=== PATIENT | male | born 1965 | race Caucasian/White ===

== ENCOUNTER 2020-01-11 20:02 | Inpatient (IN) | payer MEDICARE, MEDICAID, SELFPAY ==
--- NOTE | ~2020-01-11 | XR_ITS ---
EXAMINATION: XR chest 2V EXAM DATE: 01/11/2020 20:39 INDICATION: Shortness of breath, leg swelling, history of diabetes. TECHNIQUE: Frontal and lateral projections of the chest obtained and reviewed. Comparison is made to prior examination from 08/21/2017. FINDINGS: Sternotomy wires are present without findings to suggest sternal dehiscence. The lungs are clear. Small bilateral pleural effusions. Cardiac silhouette is prominent but magnified on this AP t echnique. There is no pneumothorax suspected. The bones and soft tissues are unremarkable. On prior study there are also small bilateral pleural effusions. The previously seen patchy bilateral perihilar airspace disease has resolved. IMPRESSION: Small bilateral pleural effusions. Reviewed, dictated and finalized at location A.
--- NOTE | ~2020-01-11 | US_ITS ---
EXAMINATION: US venous doppler [facility] DATE: 01/12/2020 15:19 INDICATION: Bilateral lower limb swelling TECHNIQUE: Miranda scale images without and with compression and Doppler images of the bilateral lower e xtremity veins were obtained. COMPARISON: 03/12/2014 FINDINGS: The right common femoral vein, profunda femoral vein, femoral vein, popliteal vein, peroneal trunk, p osterior tibial veins, and greater saphenous vein are patent. The left common femoral vein, profunda femoral vein, femoral vein, popliteal vein, peroneal trunk, po sterior tibial veins, and greater saphenous vein are patent. IMPRESSION: 1. Patent bilateral lower extremity veins. No evidence of deep venous thrombosis. Reviewed, dictated and finalized at location A. IMPRESSION: 1. Patent bilateral lower extremity veins. No evidence of deep venous thrombosi s.
--- NOTE | ~2020-01-11 | US_ITS ---
EXAMINATION: US renal BI DATE: 01/14/2020 13:17 INDICATION: Acute kidney injury. TECHNIQUE: Multiple ultrasound grayscale images of the kidneys were obtained. COMPARISON: 08/22/2017 FINDINGS: The right kidney measures 11.6 x 5.7 x 5.3 cm. The left kidney measures 11.8 x 6.6 x 5.6 cm. The kidn eys demonstrate normal parenchymal echogenicity. There is no hydronephrosis. The bladder is not well distended. IMPRESSION: 1. Normal kidneys. No hydronephrosis. Reviewed, dictated and finalized at location A.
--- NOTE | ~2020-01-11 | NM_ITS ---
EXAMINATION: NM mike stress w perfusion DATE: 01/13/2020 11:45 INDICATION: Congestive heart failure. TECHNIQUE: Rest images were obtained following intravenous administration of 12.8 mCi Tc99m tetrofosm in (Myoview). The patient was infused intravenously with Lexiscan (regadenoson). Then, 33 mCi Tc99m t etrofosmin (Myoview) was administered intravenously, and stress images were obtained. Data was recons tructed into short axis and horizontal and vertical long axis SPECT images. Gated SPECT images were a lso obtained. COMPARISON: Chest CT 08/22/2017 FINDINGS: There is a moderate-sized, mild, partially reversible perfusion defect involving the inferi or wall, consistent with mixed ischemia and infarct. There is a large, severe, partially reversible p erfusion defect involving the anterolateral and inferolateral wall, consistent with mixed ischemia an d infarct. There are small, mild, partially reversible perfusion defects involving left ventricular a pex and mid anterior segment, consistent with mixed ischemia and infarct. There is global hypokinesis . Left ventricular ejection fraction measures 29%. IMPRESSION: 1. Mixed ischemia and infarct involving the inferior wall, anterolateral and inferolateral mazariegos, ape x, and mid anterior segment. 2. Global hypokinesis with left ventricular ejection fraction measuring 29%. Reviewed, dictated and finalized at location A. IMPRESSION: 1. Mixed ischemia and infarct involving the inferior wall, anterolateral and in ferolateral mazariegos, apex, and mid anterior segment. 2. Global hypokinesis with left ventricular ejection fraction measuring 29%.
[2020-01-11 20:05] VITALS: BP 172/97; PULSE 78; RESP 16; TEMP 36.2; O2SAT 100
--- NOTE | 2020-01-11 20:08 | ECG_ITS ---
Measurements Intervals [place] Rate: 76 P: 105 IL: 286 QRS: -3 QRSD: 125 T: 138 QT: 420 QTc: 473 Interpretive Statements SINUS RHYTHM WITH FIRST DEGREE AV BLOCK LEFT BUNDLE BRANCH BLOCK BASELINE ARTIFACT- I, II, AVR ABNORMAL ECG Electronically Signed On 01-12-2020 7:09:59 CDT by Nasim Gee D.O.
[2020-01-11 20:13] LABS: Glucose Point of Care 152 (65-105)
[2020-01-11 20:17] LABS: Basophils Absolute Auto 0.1 K/mm3 (0.0-0.1); Basophils Percent Auto 0.8 % (0.2-1.2); Eosinophils Absolute Auto 0.3 K/mm3 (0-0.3); Eosinophils Percent Auto 2.9 % (0-4.4); Hematocrit 35.8 % (42.0-52.0); Hemoglobin 10.8 g/dL (14.0-18.0); Immature Granulocyte Absolute 0.05 K/mm3 (0.00-0.031); Immature Granulocyte Percent A 0.5 % (0-0.5); Lymphocytes Absolute Auto 0.96 K/mm3 (0.9-3.2); Lymphocytes Percent Auto 8.6 % (18.3-44.2); Mean Corpuscular HGB Conc 30.2 g/dl (32-36); Mean Corpuscular Hemoglobin 26.3 pg (26-34); Mean Corpuscular Volume 87.3 fl (80-100); Monocytes Absolute Auto 0.8 K/mm3 (0.1-0.6); Monocytes Percent Auto 7.6 % (2.6-8.5); Neutrophils Absolute Auto 8.8 K/mm3 (1.3-6.7); Neutrophils Percent Auto 79.6 % (45.5-73.1); Platelet Count Result 349 k/mm3 (150-375); White Blood Count 11.1 K/mm3 (4.5-10.0)
[2020-01-11 20:30] LABS: Blood Urea Nitrogen 34 mg/dL (9-20); Calcium 8.4 mg/dL (8.4-10.2); Carbon Dioxide 21 mmol/L (22-30); Chloride 111 mmol/L (98-107); Estimated Glomerular Filt Rate 30; Glucose 178 mg/dL (75-110); Potassium 4.9 mmol/L (3.4-5.0); Sodium 139 mmol/L (137-145)
[2020-01-11 22:04] VITALS: BP 179/96; PULSE 72; RESP 20; TEMP 36.8
[2020-01-11 23:11] VITALS: BP 178/102; PULSE 88; RESP 18; O2SAT 98
--- NOTE | 2020-01-11 23:12 | PC.NURSE ---
assumed care of patient
[2020-01-12] VITALS (10 sets, daily range): BP systolic 129–180; BP diastolic 60–95; PULSE 63–79; RESP 16–23; TEMP 36.2–36.8; O2SAT 98–100; BMI 35.0
--- NOTE | 2020-01-12 | ECHO_ITS ---
Patient Info Name: Kobi Salter Age: 54 years : 1965 Gender: Male Ht: 72 in Wt: 259 lbs BSA: 2.48 m2 HR: 80 bpm Heart Rhythm: Sinus Rhythm Technical Quality: Good Exam Date: 01/12/2020 11:04 AM Exam Location: [facility] Patient Status: Inpatient Admit Date: 01/12/2020 Staff Ordering Physician: Nasim Gee DO Development Executive: Osiel Leslie RDCS Attending Provider: Colleen Thompson PA-C Referring Physician: Gerard MARIN; Exam Type: CA echo doppler color flow Study Info Indications I50.9 - Heart failure, unspecified Complete two-dimensional, color flow and Doppler transthoracic echocardiogram is performed. Strain analysis performed. History/Risk Factors CHF s/p 4vCABG, DM, HTN, GARCIA. Summary 1. Left ventricular chamber dimension is moderately enlarged. 2. Left ventricular systolic function is severely reduced, estimated at 25-30%. 3. There is mildly increased left ventricular wall thickness. 4. The left ventricular diastolic function is abnormal. 5. E/e' 12 is mildly elevated,. 6. Global longitudinal strain is abnormal at -7.4%. 7. Right ventricular systolic function is moderately reduced. TAPSE 1.0 cm suggests RV systolic dysfunction. 8. Right ventricular chamber dimension is mildly enlarged. 9. Left atrial chamber dimension is severely enlarged. 10. There is mild mitral valve regurgitation. 11. There is mild tricuspid valve regurgitation. 12. Mild pulmonary hypertension, estimated pulmonary arterial systolic pressure is 42 mmHg. Left Ventricle E/e' 12 is mildly elevated,. Global longitudinal strain is abnormal at -7.4%. Left ventricular chamber dimension is moderately enlarged. Left ventricular systolic function is severely reduced, estimated at 25-30%. There is mildly increased left ventricular wall thickness. The left ventricular diastolic function is abnormal. Right Ventricle Right ventricular systolic function is moderately reduced. TAPSE 1.0 cm suggests RV systolic dysfunction. Right ventricular chamber dimension is mildly enlarged. Left Atria Left atrial chamber dimension is severely enlarged. Right Atria Right atrial chamber dimension is normal. Aortic Valve The aortic valve is trileaflet. There is no aortic valve stenosis. There is no aortic valve regurgitation. Pulmonic Valve There is no pulmonic regurgitation. Mitral Valve There is no mitral valve stenosis. There is mild mitral valve regurgitation. Tricuspid Valve There is mild tricuspid valve regurgitation. Mild pulmonary hypertension, estimated pulmonary arterial systolic pressure is 42 mmHg. Pericardium/Pleural There is no pericardial effusion. Inferior Vena Cava Normal inferior vena cava with >50% collapse upon inspiration consistent with normal right atrial pressure, 5 mmHg. Aorta The aortic root size at the sinus of Valsalva is normal. Left Ventricular Outflow Tract Name Value Normal LVOT 2D LVOT Diameter 2.2 cm LVOT Doppler LVOT Peak Gradient 4 mmHg LVOT Mean Gradient 2 mmHg LVOT VTI
[2020-01-12] MEDS: FUROSEMIDE INJ 40 MG/4 ML VIAL IV PUSH ×2 (01:37→14:51)
[2020-01-12 02:18] LABS: NT Pro B Type Natriuretic Pept 25000 PG/ML (5-100); Troponin I 0.024 ng/mL (0.000-0.034)
--- NOTE | 2020-01-12 02:58 | ED.GENADULT ---
HPI - General Adult General Chief complaint: Extremity Problem,Nontraumatic Stated complaint: swelling in legs Time Seen by Provider: 01/12/20 01:00 Source: patient Mode of arrival: ambulatory Limitations: no limitations History of Present Illness HPI narrative: THis patient is a 54 yo male who presents with c/o bilateral leg swelling. 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 He has noticed that his legs have gradually become swollen over the past week. He does not take any diuretics. He also denies kidney disease. He denies chest pain but he reports fatigue. He is also concerned because he is getting sores of his feet, and his family is concerned because he has diabetes. He denies orthopnea. Onset (ago): week(s) Related Data Home Medications Medication Instructions Recorded Confirmed aspirin 81 mg tablet,delayed 81 mg PO DAILY 09/21/19 01/12/20 release atorvastatin 80 mg tablet 80 mg PO DAILY 09/21/19 01/12/20 carvedilol 3.125 mg tablet 3.125 mg PO BID 09/21/19 01/12/20 fenofibrate 160 mg tablet 54 mg PO DAILY 09/21/19 01/12/20 insulin glargine U-300 conc 300 5 unit SUB-Q DAILY 09/21/19 01/12/20 unit/mL (1.5 mL) subcutaneous pen insulin lispro 100 unit/mL 1 unit SUB-Q ONCE 09/21/19 01/12/20 subcutaneous pen lisinopril 10 mg tablet 10 mg PO DAILY 09/21/19 01/12/20 metformin 500 mg tablet 500 mg PO BID 09/21/19 01/12/20 omega 0-mft-wwl-fish oil 1,000 mg 1 cap PO DAILY 09/21/19 01/12/20 (120 mg-180 mg) capsule Cinnamon 2,000 mg BYMOUTH DAILY 01/12/20 01/12/20 Vitamin D3 25 mcg BYMOUTH DAILY 01/12/20 01/12/20 glimepiride 2 mg BYMOUTH BID 01/12/20 01/12/20 metoprolol succinate 25 mg BYMOUTH DAILY 01/12/20 01/12/20 rosuvastatin 40 mg BYMOUTH DAILY 01/12/20 01/12/20 Allergies Allergy/AdvReac Type Severity Reaction Status Date / Time Penicillins Allergy Unknown Unknown Verified 01/12/20 06:13 Review of Systems Review of Systems: All systems reviewed & are unremarkable except as noted in HPI and below Constitutional: Constitutional: Denies chills, Denies fever(s) and Denies weakness ENT: Denies dizziness Cardiovascular: Cardiovascular: Denies chest pain Respiratory: Respiratory: Reports cough (but improving) and Reports dyspnea Gastrointestinal: Gastrointestinal: Denies abdominal pain, Denies nausea and Denies vomiting Genitourinary: Genitourinary: Denies oliguria and Denies urinary frequency Integumentary/Breasts: Skin/Breast: Reports skin ulcer PMFSH Past Medical History Medical History Arthritis Cardiac arrhythmia Diabetes Elevated lipids Myocardial infarction Psychiatric diagnosis Surgical History Surgical History (Updated 09/21/19 @ 16:14 by Rebecca Vaughn CMA) History of quadruple bypass Social History Social History Smoking packs per day: 0.2 Smoking cigarettes per day: 4.0 Years smoked: 24 Smoking pack-years: 4.80 Smoking status: Former smoker Smoking end date: 09/15/19 Alcohol intake: current Exam Narrative: Exam Narrative: GENERAL: Well-appearing, well-nourished, and in no acute distress. HEAD: Normocephalic, atraumatic EYES: PERRLA and EOMI, conjunctiva clear without discharge THROAT:Mucous membranes moist, Oropharynx normal without erythema, exudate, peritonsillar swelling or fluctuance NECK: Supple, without lymphadenopathy or mass RESPIRATORY: No respiratory distress, Airway patent, Respirations non-labored, Clear to auscultation without rales, rhonchi or wheeze HEART: Regular rate and rhythm. No murmur heard. Normal peripheral pulses. ABDOMEN: Soft, nontender, nondistended, normal active bowel sounds. No masses. No rebound or guarding, No organomegaly. EXTREMITIES: bilateral lower extremity edema, normal strength with full range of motion. SKIN: warm , pale skin, he has small ulceration to feet but no drainage NEURO: Alert and oriented x3. CN
--- NOTE | 2020-01-12 07:56 | PM.CNCAR ---
Assessment and Plan Assessment and plan (1) CHF (congestive heart failure): Code(s): I50.9 - Heart failure, unspecified Status: Acute Assessment and Plan: Acute on chronic systolic and diastolic heart failure. Could be related to dietary indiscretion. Obtain echo. Would diurese cautiously given acute renal failure. (2) Acute renal failure (ARF): Code(s): N17.9 - Acute kidney failure, unspecified Status: Acute (3) Elevated lipids: Code(s): E78.5 - Hyperlipidemia, unspecified Status: Acute (4) CAD (coronary artery disease), autologous vein bypass graft: Code(s): I25.810 - Atherosclerosis of coronary artery bypass graft(s) without angina pectoris Status: Acute (5) Hypertension: Code(s): I10 - Essential (primary) hypertension Status: Acute Assessment and Plan: High. Will need better control without using renal toxic medications. Hold off on Lisinopril for now. History of Present Illness History of Present Illness Consult date/time: 01/12/20 07:56 Consult reason: CHF. 54 yr old man who is my regular cardiology patient who has a history of CAD/CABG x 4 vessels at [facility] in Sep 2017 and had post op atrial fib but without recurrence, chronic systolic and diastolic dysfunction, DM, smoking, hypertension, dyslipidemia. Reports he noted gradually increasing in sob and swelling of his legs so he decided to come in for evaluation. He also reports some orthopnea. He is able to walk about <1 block with a cane and limited by leg neuropathy and GARCIA. Reports chronic diarrhea intermittently since his CABG surgery but has not seen GI for it. Denies chest pain, palpitations. CXR shows small bilateral pleural effusions, NTpro BNP >25,000, Cr 2.3 with GFR 30. Trop is OK at 0.024. Reason For Visit: swelling in legs Review of Systems Review of Systems: All systems reviewed & are unremarkable except as noted in HPI and below Constitutional: Constitutional: Reports as per HPI, Denies body ache(s) and Denies chills Cardiovascular: Cardiovascular: Reports as per HPI, Denies chest pain, Reports leg edema and Denies lightheadedness Respiratory: Respiratory: Reports as per HPI, Reports dyspnea on exertion and Denies wheezing Gastrointestinal: Gastrointestinal: Reports as per HPI, Reports abdominal pain and Reports diarrhea Musculoskeletal: Musculoskeletal: Reports as per HPI Neurologic: Reports as per HPI and Denies Abnormal speech present [facility] Past Medical History Medical History Arthritis Cardiac arrhythmia Diabetes Elevated lipids Myocardial infarction Psychiatric diagnosis Surgical History Surgical History (Updated 09/21/19 @ 16:14 by Rebecca Vaughn CMA) History of quadruple bypass Social History Social History Smoking packs per day: 0.2 Smoking cigarettes per day: 4.0 Years smoked: 24 Smoking pack-years: 4.80 Smoking status: Former smoker Smoking end date: 09/15/19 Alcohol intake: current Meds Home Medications and Allergies Home Medications Medication Instructions Recorded Confirmed Type aspirin 81 mg tablet,delayed 81 mg PO DAILY 09/21/19 01/12/20 History release atorvastatin 80 mg tablet 80 mg PO DAILY 09/21/19 01/12/20 History carvedilol 3.125 mg tablet 3.125 mg PO BID 09/21/19 01/12/20 History fenofibrate 160 mg tablet 54 mg PO DAILY 09/21/19 01/12/20 History insulin glargine U-300 conc 300 5 unit SUB-Q DAILY 09/21/19 01/12/20 History unit/mL (1.5 mL) subcutaneous pen insulin lispro 100 unit/mL 1 unit SUB-Q ONCE 09/21/19 01/12/20 History subcutaneous pen lisinopril 10 mg tablet 10 mg PO DAILY 09/21/19 01/12/20 History metformin 500 mg tablet 500 mg PO BID 09/21/19 01/12/20 History omega 3-jnj-aji-fish oil 1,000 mg 1 cap PO DAILY 09/21/19 01/12/20 History (120 mg-180 mg) capsule Cinnamon 2,000 mg BYMOUTH DAILY 01/12/20 01/12/20 History Vitamin D3 25 mc
[2020-01-12 09:29] LABS: Glucose Point of Care 131 (65-105)
--- NOTE | 2020-01-12 10:05 | PM.IMHP ---
H&P: HPI History of Present Illness Chief complaint: swelling in legs Narrative: Kobi Salter is a 54 year old male with a history of CAD status post CABG x4 in 2018, chronic systolic and diastolic CHF, uncontrolled diabetes insulin dependent with neuropathy and status post left toe amputation 2012, who presented to the emergency department after his sister and niece told him he should be evaluated for his leg swelling, sores on his feet which has been going on for the last few weeks. He states for the last few months he has been going through insurance issues, he is not currently have a primary care provider to follow-up with, and due to COVID-19 he has not been able to follow-up with any providers for his issues. He reported noticing intermittent swelling to his legs and feet for the last 1-2 weeks. He denies any calf pain or history of DVT. He states his niece looks to his feet the other day and noticed that he had some wounds and she was concerned since he had history of an amputation due to his uncontrolled diabetes and neuropathy. He also states he has been having diarrhea intermittently since his open-heart surgery in 2018. He states having at least 1 diarrhea episode per day and sometimes he is unable to make it to the bathroom. He states since arrival he has been eating and drinking without any issues and has not had any more bouts of diarrhea since admission. He denies any associated nausea, vomiting, abdominal pain, melena, associated. He reports not being very active since July of last year when he started having worsening vision due to his cataracts. He can no longer drive and get around and no longer wishes to go out with friends or family. He states he lives with his niece but mostly spends his time in his room. He reports not eating last 2 days. He denies any shortness of breath at rest, orthopnea, chest pain, but does report some shortness of breath with exertion when going up a hill or a flight of stairs. He reports recently purchasing an exercise bike and denies any chest pain or shortness of breath when using it. He does report having a cough recently with clear/white sputum production. He denies any fever, chills, dysuria, but does report some frequent urination recently. He has also been having increased thirst and reports drinking a lot of water. He states his hemoglobin A1c 4-6 months ago was around 8% and his copper plater started him on glipizide and continued his metformin, but since this visit he has not been able to see his glucometer due to his cataracts and has not been checking his glucose or been using his insulin. His hemoglobin A1c this morning was 11.3%. Initial vitals showed temperature of 97.1?, blood pressure 172/97, heart rate 78, respiratory rate 16, oxygen saturation 100% on room air. Initial labs showed leukocytosis at 11,100, slight normocytic anemia with a hemoglobin of 10.8 hematocrit of 35%, BMP showed NATAN with a creatinine of 2.3, BUN 34 (unsure of the patient's baseline), slight metabolic acidosis with serum bicarb a 21. Troponin was 0.024. BNP was [address]. Chest x-ray shows small bilateral pleural effusions which appears to be chronic on prior examinations. He was given a dose of IV Lasix 40 mg in the emergency department with some improvement of his leg swelling and his creatinine remains stable. Dr. Gee cardiology was consulted who follows the patient is an outpatient. Echocardiogram was ordered, IV Lasix were continued and will continue monitoring his renal function during diuresis. Code status: Full code Primary care provider: None, it used to be Dr. Tay Review of Systems Review of Systems: All systems reviewed & are unremarkable except as noted in HPI and below PMFSH Past Medical History Medical History 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 heart failure Arthritis CAD (coronary artery dise
[2020-01-12 10:06] LABS: Basophils Absolute Auto 0.1 K/mm3 (0.0-0.1); Basophils Percent Auto 0.8 % (0.2-1.2); Eosinophils Absolute Auto 0.3 K/mm3 (0-0.3); Hematocrit 33.2 % (42.0-52.0); Hemoglobin 10.1 g/dL (14.0-18.0); Immature Granulocyte Absolute 0.03 K/mm3 (0.00-0.031); Immature Granulocyte Percent A 0.3 % (0-0.5); Lymphocytes Absolute Auto 0.75 K/mm3 (0.9-3.2); Lymphocytes Percent Auto 8.3 % (18.3-44.2); Mean Corpuscular HGB Conc 30.4 g/dl (32-36); Mean Corpuscular Hemoglobin 26.3 pg (26-34); Mean Corpuscular Volume 86.5 fl (80-100); Mean Platelet Volume 10.5 fl (7.4-10.4); Monocytes Absolute Auto 0.9 K/mm3 (0.1-0.6); Monocytes Percent Auto 10.1 % (2.6-8.5); Neutrophils Percent Auto 77.5 % (45.5-73.1); Platelet Count Result 318 k/mm3 (150-375); Red Blood Count 3.84 M/mm3 (4.6-6.20); Red Cell Distribution Width 15.1 % (11.5-14.5)
[2020-01-12 11:41] LABS: Blood Urea Nitrogen 35 mg/dL (9-20); Calcium 8.2 mg/dL (8.4-10.2); Carbon Dioxide 22 mmol/L (22-30); Chloride 112 mmol/L (98-107); Estimated CRCL calculation 43 ml/min; Estimated Glomerular Filt Rate 30; Glucose 141 mg/dL (75-110); Potassium 4.5 mmol/L (3.4-5.0); Sodium 140 mmol/L (137-145)
[2020-01-12 12:42] LABS: Glucose Point of Care 162 (65-105)
[2020-01-12] MEDS: INSULIN GLARGINE (*BKC) 100 UNITS/ML SUB-Q (12:59)
[2020-01-12 13:08] LABS: Hemoglobin A1C 11.3 % (<5.7)
[2020-01-12] MEDS: ATORVASTATIN 40 MG TABLET 80 MG PO (13:12)
[2020-01-12] MEDS: ASPIRIN 81 MG ENTERIC TABLET PO (13:12)
[2020-01-12] MEDS: ENOXAPARIN 40 MG/0.4 ML SYRINGE SUB-Q (13:13)
[2020-01-12] MEDS: METOPROLOL SUCCINATE EXT REL 25 MG TABCR BY MOUTH (13:13)
[2020-01-12] MEDS: FENOFIBRATE,MICRONIZED 48 MG TABLET PO (13:13)
[2020-01-12] MEDS: AMLODIPINE BESYLATE 5 MG TABLET PO (14:52)
[2020-01-12 15:49] LABS: Add Urine Microscopic? YES; Appearance Urine Clear (Clear); Bilirubin Urine Negative (Negative); Blood Urine Negative (Negative); Color Urine Yellow (Yellow); Glucose Urine UA 3+ mg/dL (Negative); Ketones Urine Negative (Negative); Leukocyte Esterase Ur Negative LEU/UL (Negative); Mucus Urine Rare /lpf; Nitrate Urine Negative (Negative); Protein Urine 3+ mg/dL (Negative); Specific Grav Ur 1.013 (1.001-1.035); Squamous Epithelial Cell Urine Rare /hpf (Few); Urobilinogen Urine Negative mg/dL (<2.0); WBC Urine 0-3 /hpf
[2020-01-12] MEDS: FUROSEMIDE INJ 40 MG/4 ML VIAL 20 MG IV PUSH (18:17)
[2020-01-12 18:21] LABS: Glucose Point of Care 119 (65-105)
[2020-01-12 20:41] LABS: Glucose Point of Care 196 (65-105)
[2020-01-12] MEDS: carvediloL 6.25 MG TABLET PO (20:55)
[2020-01-13] VITALS (11 sets, daily range): BP systolic 102–123; BP diastolic 46–59; PULSE 59–68; RESP 16; TEMP 36.3–36.6; O2SAT 100
--- NOTE | 2020-01-13 | EST_ITS ---
Patient Info Name: Kobi Salter Age: 54 years : 1965 Gender: Male Ht: 72 in Wt: 258 lbs BSA: 2.48 m2 Exam Date: 01/13/2020 9:46 AM Patient Status: Inpatient Admit Date: 01/12/2020 Staff Ordering Physician: Nasim Gee DO Attending Provider: Colleen Thmopson PA-C Exercise Technologist: Reuben Bowser RDCS, RT Exam Type: CA stress mike w NM Study Info A regadenoson stress test was performed. Summary 1. 1. Negative lexiscan stress test for ischemic ST changes by ECG criteria. 2. 2. Baseline hypertension. 3. 3. Nuclear scan to follow and will be reported separately. Please correlate with it. 4. 4. Patient informed of the above results. Protocol: Lexiscan Stress ECG Details Stage: REST Duration (min): 2 min : 9 sec HR (bpm): 66 SBP (mmHg): 145 DBP (mmHg): 75 Stage: REST Duration (min): 34 min : 14 sec HR (bpm): 67 SBP (mmHg): 145 DBP (mmHg): 75 Stage: STAGE 1 Duration (min): 1 min : 0 sec HR (bpm): 69 SBP (mmHg): 145 DBP (mmHg): 75 Stage: RECOVERY Duration (min): 1 min : 0 sec HR (bpm): 70 SBP (mmHg): 136 DBP (mmHg): 60 Stage: RECOVERY Duration (min): 2 min : 0 sec HR (bpm): 70 SBP (mmHg): 136 DBP (mmHg): 60 Stage: RECOVERY Duration (min): 3 min : 0 sec HR (bpm): 70 SBP (mmHg): 153 DBP (mmHg): 65 Stage: RECOVERY Duration (min): 3 min : 1 sec HR (bpm): 70 SBP (mmHg): 153 DBP (mmHg): 65 Rest HR: 67 bpm Peak HR: 71 bpm Rest Sys BP: 145 mmHg Peak Sys BP: 153 mmHg Max Pred HR: 164 bpm % Max Pred HR: 43 % Target HR: 139 bpm Max RPP: 10,863 bpm*mmHg Termination Reason: Completed protocol Cardiac Symptoms: None Total Time: 1 min : 0 sec Rest Grier BP: 75 mmHg Peak Grier BP: 65 mmHg Total Dose: 0.4 mg Resting ECG Sinus rhythm with first degree AV block, ILBBB, borderline ST-T wave in high lateral leads. Stress ECG No ST changes. Arrhythmias None. Report Signatures
[2020-01-13 06:05] LABS: Basophils Percent Auto 0.6 % (0.2-1.2); Eosinophils Absolute Auto 0.3 K/mm3 (0-0.3); Eosinophils Percent Auto 3.8 % (0-4.4); Hemoglobin 9.2 g/dL (14.0-18.0); Immature Granulocyte Absolute 0.03 K/mm3 (0.00-0.031); Immature Granulocyte Percent A 0.4 % (0-0.5); Lymphocytes Absolute Auto 0.83 K/mm3 (0.9-3.2); Lymphocytes Percent Auto 11.7 % (18.3-44.2); Mean Corpuscular HGB Conc 30.7 g/dl (32-36); Mean Corpuscular Hemoglobin 26.1 pg (26-34); Mean Platelet Volume 11.1 fl (7.4-10.4); Monocytes Absolute Auto 0.8 K/mm3 (0.1-0.6); Monocytes Percent Auto 11.8 % (2.6-8.5); Neutrophils Absolute Auto 5.1 K/mm3 (1.3-6.7); Neutrophils Percent Auto 71.7 % (45.5-73.1); Platelet Count Result 288 k/mm3 (150-375); Red Blood Count 3.53 M/mm3 (4.6-6.20); Red Cell Distribution Width 15.2 % (11.5-14.5); White Blood Count 7.1 K/mm3 (4.5-10.0)
[2020-01-13 06:16] LABS: Blood Urea Nitrogen 37 mg/dL (9-20); Calcium 7.6 mg/dL (8.4-10.2); Carbon Dioxide 24 mmol/L (22-30); Chloride 114 mmol/L (98-107); Estimated CRCL calculation 43 ml/min; Estimated Glomerular Filt Rate 30; Glucose 171 mg/dL (75-110); Magnesium 2.1 mg/dL (1.6-2.3); Potassium 4.6 mmol/L (3.4-5.0); Sodium 140 mmol/L (137-145)
[2020-01-13 06:20] LABS: Iron 31 ug/dL (49-181)
[2020-01-13 06:30] LABS: Percent Iron Saturation 10 % (20-50)
[2020-01-13 06:31] LABS: Transferrin 210 mg/dL (206-381)
[2020-01-13 07:18] LABS: Folic Acid 8.9 ng/mL (2.76->20)
--- NOTE | 2020-01-13 07:49 | PM.PNCARD ---
Progress Note: A&P Assessment and Plan (1) CAD (coronary artery disease), autologous vein bypass graft: Code(s): I25.810 - Atherosclerosis of coronary artery bypass graft(s) without angina pectoris Status: Acute (2) 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 heart failure: Code(s): I50.43 - Acute on chronic combined systolic (congestive) and diastolic (congestive) heart failure Status: Acute Assessment and Plan: Echo shows EF 25-30% with dilated LV, diastolic dysfunction, RV dysfunction with mild pulm hypertension. Since kidney function remained unchanged, will start Entresto as it has been 2 days since his last dose of Lisinopril. Discussed Life Vest to prevent sudden cardiac arrest with patient and he wants to think about it. Obtain Lexiscan myoview stress test today. (3) Acute renal failure (ARF): Code(s): N17.9 - Acute kidney failure, unspecified Status: Acute Subjective Date/time seen: 01/13/20 07:49 Reports no sob or chest pain. Edema improved. Exam Const: General: comfortable and no acute distress Neck: Neck: no JVD Carotids: no bruits Resp: Auscultation: clear to auscultation bilaterally, no crackles, no rales, no rhonchi and no wheezes Cardio: Rate: regular rate Rhythm: regular rhythm Heart sounds: no murmurs GI: Inspection: non-distended Neuro: Speech: normal speech Extrem: Right lower extremity: no edema Left lower extremity: edema (Trace edema) Objective Data Vital Signs Vital Signs: Vital Signs - 24 hr 01/12/20 12:00 01/12/20 13:13 01/12/20 14:00 Temperature 98.3 F Pulse Rate 79 76 70 Respiratory Rate 16 Blood Pressure 160/67 H Pulse Oximetry 98 01/12/20 16:00 01/12/20 20:00 01/12/20 20:55 Temperature Pulse Rate 71 64 78 Respiratory Rate Blood Pressure Pulse Oximetry 01/12/20 22:00 01/13/20 00:00 01/13/20 04:00 Temperature 97.2 F L Pulse Rate 63 63 64 Respiratory Rate 16 Blood Pressure 129/60 Pulse Oximetry 100 01/13/20 06:00 Temperature 97.5 F L Pulse Rate 59 L Respiratory Rate 16 Blood Pressure 122/59 L Pulse Oximetry 100 Intake/Output Intake/Output: Intake & Output 01/10/20 01/11/20 01/12/20 01/13/20 23:59 23:59 23:59 23:59 Intake Total 1270 500 Output Total 1700 1200 Balance -430 -700 Meds/Results Medications: Active Medications Generic Name Dose Route Start Last Admin Trade Name Freq PRN Reason Stop Dose Admin Amlodipine Besylate 5 mg 01/12/20 14:05 01/12/20 14:52 Norvasc PO 5 mg QAM SALVADOR Administration Aspirin 81 mg 01/12/20 09:40 01/12/20 13:12 Aspirin Ec PO 81 mg DAILY SALVADOR Administration Atorvastatin Calcium 80 mg 01/12/20 09:40 01/12/20 13:12 Lipitor PO 80 mg DAILY SALVADOR Administration Carvedilol 6.25 mg 01/12/20 21:00 01/12/20 20:55 Coreg PO 6.25 mg Q12HR SALVADOR Administration Dextrose 12.5 gm 01/12/20 10:01 Dextrose 50% Syringe IV PUSH PRN PRN Hypoglycemia Protocol Enoxaparin Sodium 40 mg 01/12/20 10:05 01/12/20 13:13 Lovenox SUB-Q 40 mg DAILY SALVADOR Administration Fenofibrate 48 mg 01/12/20 09:40 01/12/20 13:13 Tricor PO 48 mg DAILY SALVADOR Administration Furosemide 20 mg 01/12/20 17:00 01/12/20 18:17 Lasix Inj IV PUSH 20 mg BID SALVADOR Administration Glucagon 1 mg 01/12/20 10:01 Glucagon For Inj IM PRN PRN Hypoglycemia Protocol Glucose 15 gm 01/12/20 10:01 Glutose 15 PO PRN PRN Hypoglycemia Protocol Hydralazine HCl 10 mg 01/12/20 10:04 Apresoline Hcl Inj IV PUSH Q8H PRN Blood Pressure - High Dextrose 1,000 mls @ 100 mls/hr 01/12/20 10:01 Dextrose 5% 1,000 Ml IVPB PRN PRN Hypoglycemia Protocol Insulin Aspart 4 - 8 units 01/12/20 12:00 01/12/20 18:18 Novolog SUB-Q Not Given TIDWM SALVADOR Protocol Insulin Glargine 5 units 01/12/20
--- NOTE | 2020-01-13 10:42 | PC.NURSE ---
patient down to cardiac lab for stress test at 0830.
--- NOTE | 2020-01-13 11:14 | PCPTNOTE ---
Attempted to see pt this a.m. for PT eval - pt was not in room due to having stress test. Will try again later today.
[2020-01-13] MEDS: ENOXAPARIN 40 MG/0.4 ML SYRINGE SUB-Q (12:04)
[2020-01-13] MEDS: ATORVASTATIN 40 MG TABLET 80 MG PO (12:05)
[2020-01-13] MEDS: ASPIRIN 81 MG ENTERIC TABLET PO (12:05)
[2020-01-13] MEDS: AMLODIPINE BESYLATE 5 MG TABLET PO (12:05)
[2020-01-13] MEDS: FENOFIBRATE,MICRONIZED 48 MG TABLET PO (12:05)
[2020-01-13] MEDS: FUROSEMIDE INJ 40 MG/4 ML VIAL 20 MG IV PUSH ×2 (12:06→17:27)
[2020-01-13] MEDS: carvediloL 6.25 MG TABLET PO ×2 (12:06→20:05)
[2020-01-13] MEDS: INSULIN GLARGINE (*BKC) 100 UNITS/ML SUB-Q (12:10)
[2020-01-13] MEDS: SACUBITRIL/VALSARTAN 24-26 MG TABLET 1 TAB PO ×2 (12:10→20:05)
[2020-01-13 12:25] LABS: Glucose Point of Care 141 (65-105)
--- NOTE | 2020-01-13 14:03 | PM.IMPN ---
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 Dr. Gee adjusted medications to Entresto, increased Coreg and will be discharging him on oral Lasix. Still with leg swelling. Stress Test Lexiscan was completed and showed Negative lexiscan stress test for ischemic ST changes by ECG criteria. Baseline hypertension. Nuclear scan to follow and will be reported separately. Will continue monitoring the patient's fluid status overnight and if his vitals and leg swelling is improved will consider discharge in the morning. Monitor Intake and output. Cardiology was consulted. (2) Acute renal failure (ARF): Code(s): N17.9 - Acute kidney failure, unspecified Status: Acute Assessment and Plan: Acute renal failure with a creatinine of 2.3/BUN at 37 today Baseline 1.5-1.1 from lab results from 1 year ago at his primary care provider's office. Patient states he was supposed to follow-up with a kidney specialist in the past but they did not accept his insurance. Since creatinine continues to be 2.3 this could be his new baseline. I did consult Nephrology on the case due to his CKD which is most likely due to uncontrolled diabetes and hypertension. Will see what Nephrology states said continue monitoring fluid balance along with his diuresis. (3) CAD (coronary artery disease), autologous vein bypass graft: Code(s): I25.810 - Atherosclerosis of coronary artery bypass graft(s) without angina pectoris Status: Acute Assessment and Plan: Will continue his aspirin. Patient denies any chest pain at this time. He had a Lexiscan stress test today in cardiology believes he is stable at this time to continue aspirin and make some adjustments to his medications. Will continue monitoring his symptoms and cardiology is consulted if any issues occur. (4) Hypertension: Code(s): I10 - Essential (primary) hypertension Status: Acute Assessment and Plan: Blood pressure this morning was 122/59 Cardiology has made some adjustments to his blood pressure medications to help with his systolic congestive heart failure. Will order p.r.n. hydralazine as needed for hypertension. (5) Elevated lipids: Code(s): E78.5 - Hyperlipidemia, unspecified Status: Acute Assessment and Plan: Will continue patient's statin medication. (6) Uncontrolled diabetes mellitus with neurologic complication: Code(s): E11.49 - Type 2 diabetes mellitus with other diabetic neurological complication; E11.65 - Type 2 diabetes mellitus with hyperglycemia Status: Acute Assessment and Plan: Patients hemoglobin A1c was 11.3%. He states 4-6 months ago it was 8%. He has been taking his metformin and glimepiride, but he has not been taking any of his insulin because he has poor eyesight from cataracts and is unable to see his glucometer. He is unsure what his glucose readings have been recently since he has not been checking it.. Will hold his metformin due to NATAN and glimepiride. I started him on Lantus 5 units subcu daily and NovoLog sliding scale. Consulted the artificial stone setter and breastfeeding educator for further education on better control. Will continue monitoring patient's glucose. Hypoglycemic protocol in place. He is on a diabetic diet. (7) Normocytic anemia: Code(s): D64.9 - Anemia, unspecified Status: Acute
--- NOTE | 2020-01-13 16:56 | PM.CNNEP ---
Assessment and Plan Assessment and plan (1) NATAN (acute kidney injury): Code(s): N17.9 - Acute kidney failure, unspecified Status: Acute (2) CHF (congestive heart failure): Code(s): I50.9 - Heart failure, unspecified Status: Acute (3) Hypertension: Code(s): I10 - Essential (primary) hypertension Status: Acute (4) Diabetes: Code(s): E11.9 - Type 2 diabetes mellitus without complications Status: Acute Assessment and Plan: . Additional Plan Kobi has an elevated creatinine. His baseline creatinine runs around 1.1 - 1.5mg/dl (in the last year) arguing he has some baseline renal insufficiency, presumably due to diabetes. Hence the concern is if this NATAN on CKD versus progression of his known chronic kidney disease. However, I cannot discount the possibility there may be some other issue and or problems affecting his kidney function particularly given his elevated creatinine in comparison to what it was a year ago. Hence, I think further investigation is warranted. With this in mind, I will check a renal ultrasound to evaluate the size and anatomy of his kidneys, check some baseline serological studies to rule out any type of intrinsic, infiltrative, or inflammatory kidney disorder, and check a random urine protein creatinine ratio to assess for proteinuria. His elevated creatinine at this time may also be partly related to the necessity of IV diuretics to maintain his volume status as well Coupled with the use of his KATYA-inhibitor. However, as already mentioned, his creatinine has been relatively stable since his admission to the hospital. I will continue to follow patient with you while he remains hospitalized and make further recommendations during his hospital course. Thank you for allowing me to participate in the care this patient. History of Present Illness Reason for Consult Consult date: 01/13/20 Reason for consult: acute renal failure Chief Complaint Chief complaint: swelling in legs History of Present Illness Narrative: The patient is a 54 year old male with a past medical history as noted below who presented to [facility] ER for further evaluation of his his leg swelling. The patient has had the bilateral lower extremity edema for at least the last 1-2 weeks if not longer associated with some cry wounds on his feet as well. Unfortunately, he has had issues and problems with insurance for the last few months and has not been able to see any physicians for these issues. He gave no systemic symptoms with regard to fevers chills dizziness, lightheadedness, nausea, vomiting, shortness of breath or palpitations. given his history of diabetes and necessity of surgical interventions in the past, his family urged him to come the emergency room for further evaluation and therapy. Workup and evaluation emergency room demonstrated the patient to be hemodynamically stable (if not hypertensive) and in no acute distress. Routine blood work demonstrated elevated BUN and creatinine in association with a mild leukocytosis, anemia, and elevated BNP. His chest x-ray shows small bilateral pleural effusions as well. It was felt these findings in conjunction with his lower extremity swelling/edema was consistent with a CHF exacerbation. He was started on IV diuretic therapy and subsequent admitted to the hospital for further evaluation and treatment. Renal consultation was requested after was noted that his BUN and creatinine have remained unchanged since his admission to the hospital. From discussion with the patient, he apparently has some degree of mild renal insufficiency at baseline with a creatinine around 1.3-1.5 mg/dL approximately a year ago when he had low last blood test done. He mentions that he was referred for nephrology evaluation but then due to his insurance issues was unable to pursue the matter any further. With regard to risk factors for kidney disease
[2020-01-13 18:09] LABS: Glucose Point of Care 186 (65-105)
[2020-01-13 20:20] LABS: Glucose Point of Care 215 (65-105)
[2020-01-14] VITALS (10 sets, daily range): BP systolic 122–136; BP diastolic 58–70; PULSE 57–72; RESP 18–20; TEMP 36.3–37.1; O2SAT 95–100
[2020-01-14 07:12] LABS: Hematocrit 30.7 % (42.0-52.0); Hemoglobin 9.2 g/dL (14.0-18.0); Mean Corpuscular Hemoglobin 25.8 pg (26-34); Mean Corpuscular Volume 86.2 fl (80-100); Mean Platelet Volume 10.9 fl (7.4-10.4); Platelet Count Result 302 k/mm3 (150-375); Red Blood Count 3.56 M/mm3 (4.6-6.20)
[2020-01-14 07:24] LABS: Albumin Level 2.7 g/dL (3.5-5.1); Blood Urea Nitrogen 35 mg/dL (9-20); Calcium 7.6 mg/dL (8.4-10.2); Carbon Dioxide 23 mmol/L (22-30); Chloride 111 mmol/L (98-107); Estimated CRCL calculation 38 ml/min; Estimated Glomerular Filt Rate 26; Glucose 143 mg/dL (75-110); Phosphorus 4.3 mg/dL (2.5-4.5); Potassium 4.5 mmol/L (3.4-5.0); Sodium 139 mmol/L (137-145)
[2020-01-14] MEDS: AMLODIPINE BESYLATE 5 MG TABLET PO (08:13)
[2020-01-14] MEDS: carvediloL 6.25 MG TABLET PO ×2 (08:13→20:38)
[2020-01-14] MEDS: FENOFIBRATE,MICRONIZED 48 MG TABLET PO (08:13)
[2020-01-14] MEDS: ENOXAPARIN 40 MG/0.4 ML SYRINGE SUB-Q (08:13)
[2020-01-14] MEDS: ASPIRIN 81 MG ENTERIC TABLET PO (08:13)
[2020-01-14] MEDS: SACUBITRIL/VALSARTAN 24-26 MG TABLET 1 TAB PO ×2 (08:14→20:38)
[2020-01-14] MEDS: ATORVASTATIN 40 MG TABLET 80 MG PO (08:14)
[2020-01-14] MEDS: FUROSEMIDE INJ 40 MG/4 ML VIAL 20 MG IV PUSH (08:15)
[2020-01-14] MEDS: INSULIN GLARGINE (*BKC) 100 UNITS/ML SUB-Q (08:15)
[2020-01-14 08:32] LABS: Glucose Point of Care 136 (65-105)
--- NOTE | 2020-01-14 09:08 | PM.PNCARD ---
Progress Note: A&P Assessment and Plan (1) CAD (coronary artery disease), autologous vein bypass graft: Code(s): I25.810 - Atherosclerosis of coronary artery bypass graft(s) without angina pectoris Status: Acute (2) 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 heart failure: Code(s): I50.43 - Acute on chronic combined systolic (congestive) and diastolic (congestive) heart failure Status: Acute Assessment and Plan: Analy helm was a suboptimal study with diffuse scar. Echo shows EF 25-30% with dilated LV, diastolic dysfunction, RV dysfunction with mild pulm hypertension. His EF fluctuates between 30-40% in the past. On Coreg. Started 01/13/20 on Entresto. Discussed Life Vest to prevent sudden cardiac arrest with patient and he wants to think about it. Upon discharge would change Lasix 20 mg IV BID to 40 mg PO daily. (3) Acute renal failure (ARF): Code(s): N17.9 - Acute kidney failure, unspecified Status: Acute Assessment and Plan: Evaluation by nephrology. Subjective Date/time seen: 01/14/20 09:08 Denies chest pain or sob. Exam Const: General: comfortable and no acute distress Neck: Neck: no JVD Carotids: no bruits Resp: Auscultation: clear to auscultation bilaterally, no crackles, no rales, no rhonchi and no wheezes Cardio: Rate: regular rate Rhythm: regular rhythm Heart sounds: no murmurs GI: Inspection: non-distended Neuro: Speech: normal speech Extrem: Right lower extremity: no edema Left lower extremity: edema (Trace edema) Objective Data Vital Signs Vital Signs: Vital Signs - 24 hr 01/13/20 12:00 01/13/20 12:06 01/13/20 14:00 Temperature 97.8 F Pulse Rate 67 68 67 Respiratory Rate 16 Blood Pressure 123/59 L Pulse Oximetry 100 01/13/20 16:00 01/13/20 20:00 01/13/20 20:05 Temperature Pulse Rate 63 68 63 Respiratory Rate Blood Pressure Pulse Oximetry 01/13/20 21:41 01/14/20 00:00 01/14/20 04:00 Temperature 97.3 F L Pulse Rate 63 57 L 61 Respiratory Rate 16 Blood Pressure 102/46 L Pulse Oximetry 100 01/14/20 06:00 Temperature 97.4 F L Pulse Rate 62 Respiratory Rate 18 Blood Pressure 136/70 Pulse Oximetry 100 Intake/Output Intake/Output: Intake & Output 01/11/20 01/12/20 01/13/20 01/14/20 23:59 23:59 23:59 23:59 Intake Total 1270 1415 340 Output Total 1700 1700 450 Balance -430 -285 -110 Meds/Results Medications: Active Medications Generic Name Dose Route Start Last Admin Trade Name Freq PRN Reason Stop Dose Admin Amlodipine Besylate 5 mg 01/12/20 14:05 01/14/20 08:13 Norvasc PO 5 mg QAM SALVADOR Administration Aspirin 81 mg 01/12/20 09:40 01/14/20 08:13 Aspirin Ec PO 81 mg DAILY SALVADOR Administration Atorvastatin Calcium 80 mg 01/12/20 09:40 01/14/20 08:14 Lipitor PO 80 mg DAILY SALVADOR Administration Carvedilol 6.25 mg 01/12/20 21:00 01/14/20 08:13 Coreg PO 6.25 mg Q12HR SALVADOR Administration Dextrose 12.5 gm 01/12/20 10:01 Dextrose 50% Syringe IV PUSH PRN PRN Hypoglycemia Protocol Enoxaparin Sodium 40 mg 01/12/20 10:05 01/14/20 08:13 Lovenox SUB-Q 40 mg DAILY SALVADOR Administration Fenofibrate 48 mg 01/12/20 09:40 01/14/20 08:13 Tricor PO 48 mg DAILY SALVADOR Administration Furosemide 20 mg 01/12/20 17:00 01/14/20 08:15 Lasix Inj IV PUSH 20 mg BID SALVADOR Administration Glucagon 1 mg 01/12/20 10:01 Glucagon For Inj IM PRN PRN Hypoglycemia Protocol Glucose 15 gm 01/12/20 10:01 Glutose 15 PO PRN PRN Hypoglycemia Protocol Hydralazine HCl 10 mg 01/12/20 10:04 Apresoline Hcl Inj IV PUSH Q8H PRN Blood Pressure - High Dextrose 1,000 mls @ 100 mls/hr 01/12/20 10:01 Dextrose 5% 1,000 Ml IVPB PRN PRN Hypoglycemia Protocol Iron Sucrose 300 mg/ Sodium 115 mls @ 76.667 mls/hr 01/13/20 10
--- NOTE | 2020-01-14 11:24 | PCDIET ---
Nutrition Consult Complete: Goal: Improved blood sugar control Pt current nutrition is DBCC. Nutrition recommendation: Agree Last recorded weight is 117.3 kg. Labs Reviewed: A1c 11.3 Additional Notes: Pt has not been checking blood sugars due to vision loss and has not been using insulin due to MD change and inability to see MD with recent events. Pt typically does not follow a DBCC diet at home, does not eat regularly timed meals, and did not know where carbs where found in food. Edu provided on balanced meals: including veggies, protein, healthy fats, so you can limit to carbs under 60g at meals. Pt not sure where carbs where found so reviewed carb sources. Pt has not been eating regularly timed meals and notes he feels better here eating TID so is encouraged to continue this at home. Pt motivated to improve his diabetes. D/C paperwork attached for myplate meal planning and carb counting. Pt also encouraged to set up outpatient appt after d/c.
[2020-01-14 11:31] LABS: Glucose Point of Care 190 (65-105)
--- NOTE | 2020-01-14 12:50 | PM.IMPN ---
Progress Note: A&P Assessment and Plan (1) Acute renal failure (ARF): Code(s): N17.9 - Acute kidney failure, unspecified Status: Acute Assessment and Plan: Acute renal failure with an increase in creatinine today at 2.6/BUN 35. Baseline 1.5-1.1 from lab results from 1 year ago at his primary care provider's office. Patient states he was supposed to follow-up with a kidney specialist in the past but they did not accept his insurance. Since creatinine continues to be 2.3 this could be his new baseline. Dr. Bay ordered further renal testing and renal US. Pending this results. Since he has an increase in his creatinine today, will hold him again overnight and recheck labs in the morning. Will see what Nephrology states said continue monitoring fluid balance along with his diuresis. 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 Dr. Gee adjusted medications to Entresto, increased Coreg and will be discharging him on oral Lasix 40 mg. Stress Test Lexiscan was completed and showed Negative lexiscan stress test for ischemic ST changes by ECG criteria. Baseline hypertension. Nuclear scan to follow and will be reported separately. Still with leg swelling 1-2+. Will order compression stockings and told to elevate. Will continue monitoring the patient's fluid status overnight and if his vitals and leg swelling is improved will consider discharge in the morning. Monitor Intake and output. Cardiology was consulted. (3) CAD (coronary artery disease), autologous vein bypass graft: Code(s): I25.810 - Atherosclerosis of coronary artery bypass graft(s) without angina pectoris Status: Acute Assessment and Plan: Will continue his aspirin. Patient denies any chest pain at this time. He had a Lexiscan stress test today in cardiology believes he is stable at this time to continue aspirin and make some adjustments to his medications. Will continue monitoring his symptoms and cardiology is consulted if any issues occur. (4) Hypertension: Code(s): I10 - Essential (primary) hypertension Status: Acute Assessment and Plan: Blood pressure this morning was 136/70 Cardiology has made some adjustments to his blood pressure medications to help with his systolic congestive heart failure. Will order p.r.n. hydralazine as needed for hypertension. (5) Elevated lipids: Code(s): E78.5 - Hyperlipidemia, unspecified Status: Acute Assessment and Plan: Will continue patient's statin medication. (6) Uncontrolled diabetes mellitus with neurologic complication: Code(s): E11.49 - Type 2 diabetes mellitus with other diabetic neurological complication; E11.65 - Type 2 diabetes mellitus with hyperglycemia Status: Acute Assessment and Plan: Patients hemoglobin A1c was 11.3%. He states 4-6 months ago it was 8%. He has been taking his metformin and glimepiride, but he has not been taking any of his insulin because he has poor eyesight from cataracts and is unable to see his glucometer. He is unsure what his glucose readings have been recently since he has not been checking it.. Will hold his metformin due to NATAN and glimepiride. I started him on Lantus 5 units subcu daily and NovoLog sliding scale. Consulted the cementer oil well and consumer educator for further education on better control. Will continue monitoring patient's glucose. Hypoglycemic protocol in place. He is on a diabeti
--- NOTE | 2020-01-14 13:20 | PCOTNOTE ---
Attempted to see patient this pm, however patient off floor for testing/procedure at this time.
[2020-01-14] MEDS: calcium polycarbophiL 625 MG TABLET PO (13:27)
[2020-01-14 13:41] LABS: Complement C3 136 mg/dL (88-165)
--- NOTE | 2020-01-14 16:13 | PM.PNNEP ---
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 heart failure: Code(s): I50.43 - Acute on chronic combined systolic (congestive) and diastolic (congestive) heart failure Status: Acute Assessment and Plan: Echo results noed Cardiology following as well on diuretics follow I/Os and edema (3) Hypertension: Code(s): I10 - Essential (primary) hypertension Status: Acute Assessment and Plan: reasonable contrl at this time follow hemodynamics (4) Other specified anemias: Code(s): D64.89 - Other specified anemias Status: Acute Assessment and Plan: due in part to renal insufficiency and iron deficiency getting IV venofer (5) Diabetes: Code(s): E11.9 - Type 2 diabetes mellitus without complications Status: Acute Assessment and Plan: follow accuchecks on SSI and Lantus Assuming renal function is relatively stable and otherwise medically stable, would not be opposed to discharge from renal perspective tomorrow -- he could follow-up with me in clinic to review his pending tests and CKD management. Will continue to follow Subjective Date/time seen: 01/14/20 16:13 He seems to be doing reasonably well -- breathing as well as lower extremity edema seems to be improving; no apparent distress voiced at this time. Exam Narrative: Exam Narrative: General: WD/WN male in NAD Heart: normal S1 and S2; no rub Lungs: clear to auscultation Abdomen: soft, nontender, nondistended, positive bowel sounds Extremities: no cyanosis or clubbing; 1 - 2+ edema Skin: warm and dry Objective Data Vital Signs Vital Signs: Vital Signs Temp Pulse Resp BP Pulse Ox 01/14/20 14:00 36.4 C L 70 20 122/58 L 99 01/14/20 12:00 68 01/14/20 08:00 64 01/14/20 06:00 36.3 C L 62 18 136/70 100 01/14/20 04:00 61 01/14/20 00:00 57 L 01/13/20 21:41 36.3 C L 63 16 102/46 L 100 01/13/20 20:05 63 01/13/20 20:00 68 Intake/Output Intake/Output: Intake & Output 01/11/20 01/12/20 01/13/20 01/14/20 23:59 23:59 23:59 23:59 Intake Total 1270 1415 700 Output Total 1700 1700 450 Balance -430 -285 250 Meds/Results Medications: Active Medications Generic Name Dose Route Start Last Admin Trade Name Freq PRN Reason Stop Dose Admin Amlodipine Besylate 5 mg 01/12/20 14:05 01/14/20 08:13 Norvasc PO 5 mg QAM SALVADOR Administration Aspirin 81 mg 01/12/20 09:40 01/14/20 08:13 Aspirin Ec PO 81 mg DAILY SALVADOR Administration Calcium Polycarbophil 625 mg 01/14/20 12:50 01/14/20 13:27 Fiber Con PO 625 mg QAM SALVADOR Administration Carvedilol 6.25 mg 01/12/20 21:00 01/14/20 08:13 Coreg PO 6.25 mg Q12HR SALVADOR Administration Dextrose 12.5 gm 01/12/20 10:01 Dextrose 50% Syringe IV PUSH PRN PRN Hypoglycemia Protocol Enoxaparin Sodium 40 mg 01/12/20 10:05 01/14/20 08:13 Lovenox SUB-Q 40 mg DAILY SALVADOR Administration Fenofibrate 48 mg 01/12/20 09:40 01/14/20 08:13 Tricor PO 48 mg DAILY SALVADOR Administration Furosemide 40 mg 01/15/20 09:00 Lasix Tablet PO DAILY SALVADOR Glucagon 1 mg 01/12/20 10:01 Glucagon For Inj IM PRN PRN Hypoglycemia Protocol Glucose 15 gm 01/12/20 10:01 Glutose 15 PO PRN PRN Hypoglycemia Protocol Hydralazine HCl 10
[2020-01-14 17:03] LABS: Glucose Point of Care 185 (65-105)
[2020-01-14 20:12] LABS: Creatinine Urine 125.4 mg/dL
[2020-01-14 20:20] LABS: Sodium Urine Random 38 meq/L
[2020-01-14 20:43] LABS: Total Protein Urine Random > 600 mg/dL
[2020-01-14 20:46] LABS: Glucose Point of Care 239 (65-105)
[2020-01-15] VITALS (7 sets, daily range): BP systolic 120–135; BP diastolic 64–78; PULSE 62–81; RESP 18; TEMP 36.6–36.8; O2SAT 18–100; BMI 35.0
[2020-01-15 06:37] LABS: Hematocrit 28.9 % (42.0-52.0); Hemoglobin 8.9 g/dL (14.0-18.0); Mean Corpuscular HGB Conc 30.8 g/dl (32-36); Mean Corpuscular Hemoglobin 26.6 pg (26-34); Mean Corpuscular Volume 86.3 fl (80-100); Platelet Count Result 278 k/mm3 (150-375); Red Blood Count 3.35 M/mm3 (4.6-6.20); Red Cell Distribution Width 15.3 % (11.5-14.5); White Blood Count 8.3 K/mm3 (4.5-10.0)
[2020-01-15 06:58] LABS: Albumin Level 2.7 g/dL (3.5-5.1); Blood Urea Nitrogen 40 mg/dL (9-20); Calcium 7.2 mg/dL (8.4-10.2); Carbon Dioxide 23 mmol/L (22-30); Chloride 112 mmol/L (98-107); Estimated CRCL calculation 35 ml/min; Estimated Glomerular Filt Rate 23; Glucose 160 mg/dL (75-110); Phosphorus 4.8 mg/dL (2.5-4.5); Potassium 4.8 mmol/L (3.4-5.0); Sodium 140 mmol/L (137-145)
--- NOTE | 2020-01-15 08:01 | PM.PNCARD ---
Progress Note: A&P Assessment and Plan (1) CAD (coronary artery disease), autologous vein bypass graft: Code(s): I25.810 - Atherosclerosis of coronary artery bypass graft(s) without angina pectoris Status: Acute (2) 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 heart failure: Code(s): I50.43 - Acute on chronic combined systolic (congestive) and diastolic (congestive) heart failure Status: Acute Assessment and Plan: Analy helm was a suboptimal study with diffuse scar. Echo shows EF 25-30% with dilated LV, diastolic dysfunction, RV dysfunction with mild pulm hypertension. His EF fluctuates between 30-40% in the past. On Coreg. Started 01/13/20 on Entresto. Discussed Life Vest to prevent sudden cardiac arrest with patient and he wants to think about it. Order placed in case he agrees to it. Upon discharge would change Lasix 20 mg IV BID to 40 mg PO daily. (3) Acute renal failure (ARF): Code(s): N17.9 - Acute kidney failure, unspecified Status: Acute Assessment and Plan: Kidney function got worse. If we need to hold Entresto we can but this could improve his EF going forward. Evaluation by nephrology. Subjective Date/time seen: 01/15/20 08:01 Denies chest pain or sob. Persistent mild left leg edema only. Exam Const: General: comfortable and no acute distress Neck: Neck: no JVD Carotids: no bruits Resp: Auscultation: clear to auscultation bilaterally, no crackles, no rales, no rhonchi and no wheezes Cardio: Rate: regular rate Rhythm: regular rhythm Heart sounds: no murmurs GI: Inspection: non-distended Neuro: Speech: normal speech Extrem: Right lower extremity: no edema Left lower extremity: edema Objective Data Vital Signs Vital Signs: Vital Signs - 24 hr 01/14/20 12:00 01/14/20 14:00 01/14/20 16:00 Temperature 97.5 F L Pulse Rate 68 70 67 Respiratory Rate 20 Blood Pressure 122/58 L Pulse Oximetry 99 01/14/20 20:00 01/14/20 20:38 01/14/20 22:00 Temperature 98.8 F Pulse Rate 72 72 68 Respiratory Rate 18 Blood Pressure 126/60 Pulse Oximetry 95 01/15/20 00:00 01/15/20 04:00 01/15/20 06:00 Temperature 98.3 F Pulse Rate 70 67 81 Respiratory Rate 18 Blood Pressure 120/64 Pulse Oximetry 100 Intake/Output Intake/Output: Intake & Output 01/12/20 01/13/20 01/14/20 01/15/20 23:59 23:59 23:59 23:59 Intake Total 1270 1415 1730 450 Output Total 1700 1700 650 600 Balance -430 -285 1080 -150 Meds/Results Medications: Active Medications Generic Name Dose Route Start Last Admin Trade Name Freq PRN Reason Stop Dose Admin Amlodipine Besylate 5 mg 01/12/20 14:05 01/14/20 08:13 Norvasc PO 5 mg QAM SALVADOR Administration Aspirin 81 mg 01/12/20 09:40 01/14/20 08:13 Aspirin Ec PO 81 mg DAILY SALVADOR Administration Calcium Polycarbophil 625 mg 01/14/20 12:50 01/14/20 13:27 Fiber Con PO 625 mg QAM SALVADOR Administration Carvedilol 6.25 mg 01/12/20 21:00 01/14/20 20:38 Coreg PO 6.25 mg Q12HR SALVADOR Administration Dextrose 12.5 gm 01/12/20 10:01 Dextrose 50% Syringe IV PUSH PRN PRN Hypoglycemia Protocol Enoxaparin Sodium 40 mg 01/12/20 10:05 01/14/20 08:13 Lovenox SUB-Q 40 mg DAILY SALVADOR Administration Fenofibrate 48 mg 01/12/20 09:40 01/14/20 08:13 Tricor PO 48 mg DAILY SALVADOR Administration Furosemide 40 mg 01/15/20 09:00 Lasix Tablet PO DAILY SALVADOR Glucagon 1 mg 01/12/20 10:01 Glucagon For Inj IM PRN PRN Hypoglycemia Protocol Glucose 15 gm 01/12/20 10:01 Glutose 15 PO PRN PRN Hypoglycemia Protocol Hydralazine HCl 10 mg 01/12/20 10:04 Apresoline Hcl Inj IV PUSH Q8H PRN Blood Pressure - High Dextrose 1,000 mls @ 100 mls/hr 01/12/20 10:01 Dextrose 5% 1,000 Ml IVPB PRN PRN Hypoglycemia Protocol Iron Sucrose 300 mg/ Sodium
[2020-01-15] MEDS: ENOXAPARIN 40 MG/0.4 ML SYRINGE SUB-Q (08:18)
[2020-01-15] MEDS: SACUBITRIL/VALSARTAN 24-26 MG TABLET 1 TAB PO (08:18)
[2020-01-15 08:25] LABS: Glucose Point of Care 150 (65-105)
[2020-01-15] MEDS: carvediloL 6.25 MG TABLET PO (08:25)
[2020-01-15] MEDS: ROSUVASTATIN 10 MG TABLET 40 MG PO (08:25)
[2020-01-15] MEDS: ASPIRIN 81 MG ENTERIC TABLET PO (08:25)
[2020-01-15] MEDS: AMLODIPINE BESYLATE 5 MG TABLET PO (08:25)
[2020-01-15] MEDS: FENOFIBRATE,MICRONIZED 48 MG TABLET PO (08:25)
[2020-01-15] MEDS: FUROSEMIDE 40 MG TABLET PO (08:25)
[2020-01-15] MEDS: calcium polycarbophiL 625 MG TABLET PO (08:25)
[2020-01-15] MEDS: INSULIN GLARGINE (*BKC) 100 UNITS/ML SUB-Q (08:26)
[2020-01-15] MEDS: INSULIN ASPART (*BKC) 100 UNITS/ML SUB-Q (11:34)
--- NOTE | 2020-01-15 12:45 | PM.PNNEP ---
Progress Note: A&P Assessment and Plan (1) NATAN (acute kidney injury): Code(s): N17.9 - Acute kidney failure, unspecified Status: Acute Assessment and Plan: apparently had a creatinine of 1.1 - 1.5mg/dl about a year ago starting to suspect that admission creatinine may be his new baseline current creatinine/renal insufficiency may be secondary to: - depressed EF/cardiomyopathy - ongoing need for diuretic therapy - use of Nash (started on 01/13/20) may be worthwhile to hold Nash now and restart/resume a little later given the necessity of IV diuretics during this admission - his creatinine may stabilize with oral diuretics at which point we could restart Nash follow up on pending urine studies and serologies continue to follow (2) 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 heart failure: Code(s): I50.43 - Acute on chronic combined systolic (congestive) and diastolic (congestive) heart failure Status: Acute Assessment and Plan: Echo results noted Cardiology following as well on diuretics follow I/Os and edema (3) Hypertension: Code(s): I10 - Essential (primary) hypertension Status: Acute Assessment and Plan: reasonable control at this time follow hemodynamics (4) Other specified anemias: Code(s): D64.89 - Other specified anemias Status: Acute Assessment and Plan: due in part to renal insufficiency and iron deficiency s/p IV venofer infusions follow H/H (5) Diabetes: Code(s): E11.9 - Type 2 diabetes mellitus without complications Status: Acute Assessment and Plan: follow accuchecks on SSI and Lantus Not opposed to discharge from renal perspective once medically stable and ok with Cardiology - he can follow-up with me in clinic for review of pending tests and ongoing CKD management. Will continue to follow Subjective Date/time seen: 01/15/20 12:45 Appears to be doing reasonably well at the time of my visit; Exam Narrative: Exam Narrative: General: WD/WN male in NAD Heart: normal S1 and S2; no rub Lungs: clear to auscultation Abdomen: soft, nontender, nondistended, positive bowel sounds Extremities: no cyanosis or clubbing; 1 - 2+ edema Skin: warm and dry Objective Data Vital Signs Vital Signs: Vital Signs Temp Pulse Resp BP Pulse Ox 01/15/20 08:25 62 01/15/20 06:00 36.8 C 81 18 120/64 100 01/15/20 04:00 67 01/15/20 00:00 70 01/14/20 22:00 37.1 C 68 18 126/60 95 01/14/20 20:38 72 01/14/20 20:00 72 01/14/20 16:00 67 01/14/20 14:00 36.4 C L 70 20 122/58 L 99 Intake/Output Intake/Output: Intake & Output 01/12/20 01/13/20 01/14/20 01/15/20 23:59 23:59 23:59 23:59 Intake Total 1270 1415 1845 690 Output Total 1700 1700 650 600 Balance -430 -285 1195 90 Meds/Results Medications: Active Medications Generic Name Dose Route Start Last Admin Trade Name Freq PRN Reason Stop Dose Admin Amlodipine Besylate 5 mg 01/12/20 14:05 01/15/20 08:25 Norvasc PO 5 mg QAM SALVADOR Administration Aspirin 81 mg 01/12/20 09:40 01/15/20 08:25 Aspirin Ec PO 81 mg DAILY SALVADOR Administration Calcium Polycarbophil 625 mg 01/14/20 12:50 01/15/20 08:25 Fiber Con PO 625 mg QAM SALVADOR Administration Carvedilol 6.25 mg 01/12/20 21:00 01/15/20 08:25 Coreg PO 6.25 mg Q12HR SALVADOR Administration Dextrose 12.5 gm 01/12/20 10:01 Dextrose 50% Syringe IV PUSH PRN PRN Hypoglycemia Protocol Enoxaparin Sodium 40 mg 01/12/20 10:05 01/15/20 08:18 Lovenox SUB-Q 40 mg DAILY SALVADOR Administration Fenofibrate 48 mg 01/12/20 09:40 01/15/20 08:25 Tricor PO 48 mg DAILY SALVADOR Administration Furosemide 40 mg 01/15/20 09:00 01/15/20 08:25 Lasix Tablet PO 40 mg DAILY SALVADOR Administration Glucagon 1 mg 01/12/20 10:01
--- NOTE | 2020-01-15 14:57 | PM.DS ---
DS: Diagnosis Admitting Diagnosis Admitting Diagnosis: Heart failure, unspecified Discharge Diagnosis (1) Acute renal failure (ARF): Code(s): N17.9 - Acute kidney failure, unspecified Status: Acute Assessment and Plan: Acute on chronic renal failure Baseline 1.5-1.1 from lab results from 1 year ago at his primary care provider's office. Patient states he was supposed to follow-up with a kidney specialist in the past but they did not accept his insurance. Renal ultrasound showed normal kidneys and no hydronephrosis. Patient's creatinine continues to rise at 2.9 today. I talked to Dr. Bay who is the construction estimator who believes this is secondary to the patient's Entresto that was started for cardiology. He recommends discontinuing Entresto at this time until we get a better baseline renal function and then cardiology can restart the medication if necessary. I talked to the lathe sander Dr. Gee understands and agrees with discontinuing Entresto at this time until renal function stabilizes. Otherwise a feel the patient can be discharged home to continue with Lasix medication and repeat BMP next week. 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 Stress Test Lexiscan was completed and showed Negative lexiscan stress test for ischemic ST changes by ECG criteria. Baseline hypertension. Nuclear scan to follow and will be reported separately. Still with leg swelling 1-2+. Will order compression stockings and told to elevate. Dr. Gee adjusted medications to Entresto, increased Coreg and will be discharging him on oral Lasix 40 mg. --> due to increasing creatinine Entresto was placed on hold. Will continue with Coreg, Lasix upon discharge. Will continue to have the patient weigh himself daily, watch his salt intake, fluid restriction, and call his lathe sander or primary care provider if he has any changes to his symptoms. (3) CAD (coronary artery disease), autologous vein bypass graft: Code(s): I25.810 - Atherosclerosis of coronary artery bypass graft(s) without angina pectoris Status: Acute Assessment and Plan: Will continue his aspirin. Patient denies any chest pain at this time. He had a Lexiscan stress test and cardiology believes he is stable at this time to continue aspirin and make some adjustments to his medications. (4) Hypertension: Code(s): I10 - Essential (primary) hypertension Status: Acute Assessment and Plan: Blood pressure this morning was 135/78. Stable. (5) Elevated lipids: Code(s): E78.5 - Hyperlipidemia, unspecified Status: Acute Assessment and Plan: Will continue patient's statin medication. (6) Uncontrolled diabetes mellitus with neurologic complication: Code(s): E11.49 - Type 2 diabetes mellitus with other diabetic neurological complication; E11.65 - Type 2 diabetes mellitus with hyperglycemia Status: Acute Assessment and Plan: Patients hemoglobin A1c was 11.3%. He states 4-6 months ago it was 8%. He has been taking his metformin and glimepiride, but he has not been taking any of his insulin because he has poor eyesight from cataracts and is unable to see his glucometer. He is unsure what his glucose readings have been recently since he has not been checking it.. Will hold his metformin due to NATAN. Upon discharge he will continue his glimepiride. Will continue him on Lantus 5 units subcu daily and sliding sc
[2020-01-15 18:05] LABS: Glucose Point of Care 230 (65-105)
[2020-01-19 09:48] LABS: Anti Glomerular Basement Memb <1.0 AI (<1.0)
[2020-01-19 17:37] LABS: Chloride Rand Ur 36 mmol/L (32-290); Chloride/Creatinine Rand Ur 29 (23-275); Creatinine Random Urine 125 mg/dL (20-320)
[2020-01-19 18:47] LABS: Complement Total CH50 >60 U/mL (31-60)
[2020-01-21 01:37] LABS: ANCA Screen Negative (Negative)
== END 2020-01-15 17:40 | disposition home or self-care (01) | DRG 291 ==
LOC: ANHED 01-12 03:10 → ANH3MEDSUR 01-12 06:06
PROVIDERS: Internal Medicine Nephrology; Physician Assistant; Admitting Provider Family Medicine; Emergency Provider General Practice; Visit Provider Internal Medicine
DX: I13.0 Hypertensive heart and chronic kidney disease with heart failure and stage 1 through stage 4 chronic kidney disease, or unspecified chronic kidney disease (principal); I50.43 Acute on chronic combined systolic (congestive) and diastolic (congestive) heart failure; N17.9 Acute kidney failure, unspecified; I25.810 Atherosclerosis of coronary artery bypass graft(s) without angina pectoris; E11.22 Type 2 diabetes mellitus with diabetic chronic kidney disease; D63.1 Anemia in chronic kidney disease; N14.1 Nephropathy induced by other drugs, medicaments and biological substances; T46.5X5A Adverse effect of other antihypertensive drugs, initial encounter; N18.9 Chronic kidney disease, unspecified; E11.42 Type 2 diabetes mellitus with diabetic polyneuropathy; E11.36 Type 2 diabetes mellitus with diabetic cataract; H26.9 Unspecified cataract; E11.65 Type 2 diabetes mellitus with hyperglycemia; D50.9 Iron deficiency anemia, unspecified; S91.302A Unspecified open wound, left foot, initial encounter; S91.101A Unspecified open wound of right great toe without damage to nail, initial encounter; E78.5 Hyperlipidemia, unspecified; M19.90 Unspecified osteoarthritis, unspecified site; Z79.82 Long term (current) use of aspirin; Z79.4 Long term (current) use of insulin; Z87.891 Personal history of nicotine dependence; Z89.429 Acquired absence of other toe(s), unspecified side
CPT/HCPCS: 36415; 71046; 76775; 78452; 80048; 80069; 81001; 81050; 82436; 82570; 82607; 82728; 82746; 82948; 83036; 83520; 83540; 83550; 83735; 83880; 84156; 84300; 84443; 84466; 84484; 85025; 85027; 85999; 86021; 86038; 86160; 86162; 86225; 93005; 93017; 93306; 93970; 96374; 97110; 97116; 97161; 97165; 97530; 99285; A9270; A9502; J1650; J1756; J1815; J1940; J2785

== ENCOUNTER 2020-03-13 15:54 | Inpatient (IN) | payer MEDICARE, MEDICAID, SELFPAY ==
--- NOTE | ~2020-03-13 | CT_ITS ---
EXAMINATION: CT brain wo con DATE: 03/13/2020 17:08 INDICATION: Leg weakness TECHNIQUE: Computed tomography (CT) of the head was performed without intravenous contrast. The dose- length product was 832.33 mGy-cm. The mA was adjusted according to patient size. Iterative reconstruction technique was employed. COMPARISON: None FINDINGS: There is a chronic right parietal lobe infarction. Mild generalized atrophy. No ventriculom egaly or midline shift. There are scattered mild periventricular and subcortical white matter changes , most likely related to small vessel ischemic disease (microangiopathy). There is intracranial ather osclerosis. No acute intracranial hemorrhage, infarction, mass or mass effect. Paranasal sinuses and mastoids are unremarkable. No depressed skull fractures. IMPRESSION: 1. No acute intracranial abnormality. 2: Chronic right parietal infarction. 3: Chronic age-related findings. Reviewed, dictated and finalized at location A.
--- NOTE | ~2020-03-13 | XR_ITS ---
XR chest 1V portable 03/13/2020 16:47 Indication: Cough and shortness of breath Procedure: AP portable chest Comparison: Comparison to multiple prior studies sequentially, with oldest reviewed study dated 12/2012. Findings: Status post median sternotomy for CABG. Moderate cardiomegaly. Left perihilar infiltrates. Mild peribronchial thickening. There is a coronary artery stent. Small pleural effusions. No pneumoth orax. Impression: 1: Left perihilar infiltrate with peribronchial thickening, suspicious for pneumonia. 2: Cardiomegaly. 3: Small pleural effusions. Reviewed, dictated and finalized at location A. Impression: 1: Left perihilar infiltrate with peribronchial thickening, suspicious for pneu monia. 2: Cardiomegaly. 3: Small pleural effusions.
[2020-03-13 15:47] VITALS: BP 143/70; PULSE 74; RESP 18; TEMP 36.6; O2SAT 95
--- NOTE | 2020-03-13 16:25 | ECG_ITS ---
Measurements Intervals [place] Rate: 69 P: 79 AK: 318 QRS: -30 QRSD: 120 T: 121 QT: 441 QTc: 473 Interpretive Statements SINUS RHYTHM WITH FIRST DEGREE AV BLOCK LEFT BUNDLE BRANCH BLOCK LOW VOLTAGE- PRECORDIAL LEADS BASELINE WANDER- II, III, V2, V5-V6 ABNORMAL ECG Electronically Signed On 03-13-2020 17:23:38 CDT by Nasim Gee D.O.
--- NOTE | 2020-03-13 16:28 | ED.GENADULT ---
HPI - General Adult General Chief complaint: Weakness Stated complaint: unable to walk History of Present Illness HPI narrative: Patient is 54 y/o male complaining of moderate bilateral leg weakness for over 1 year. He states that inactivity may have worsened his leg weakness. He states that his weakness is worse today and he was not able to get off the commode. He called his niece to help and his niece was not able to get him up either. So EMS was called and he was brought to ED. He states that left leg feels weaker, but that's also chronic. He states that he has chronic diarrhea for last 2-3 years. Related Data Home Medications Medication Instructions Recorded Confirmed aspirin 81 mg tablet,delayed 81 mg PO DAILY 09/21/19 01/12/20 release fenofibrate 160 mg tablet 54 mg PO DAILY 09/21/19 01/12/20 insulin glargine U-300 conc 300 5 unit SUB-Q DAILY 09/21/19 01/12/20 unit/mL (1.5 mL) subcutaneous pen Cinnamon 2,000 mg BYMOUTH DAILY 01/12/20 01/12/20 cholecalciferol (vitamin D3) 25 mcg PO DAILY 01/12/20 01/12/20 [Vitamin D3] glimepiride [Amaryl] 2 mg PO BID 01/12/20 01/12/20 rosuvastatin 40 mg PO DAILY 01/12/20 01/12/20 Allergies Allergy/AdvReac Type Severity Reaction Status Date / Time Penicillins Allergy Unknown Unknown Verified 03/13/20 16:07 Review of Systems Constitutional: Constitutional: Denies chills, Denies fever(s), Denies headache(s) and Reports weakness Eyes: Eyes: Denies blurry vision ENT: Denies headache(s) and Denies neck pain Cardiovascular: Cardiovascular: Denies chest pain and Denies dyspnea Respiratory: Respiratory: Reports as per HPI, Denies cough and Denies dyspnea Gastrointestinal: Gastrointestinal: Denies abdominal pain, Reports diarrhea, Denies nausea and Denies vomiting Genitourinary: Genitourinary: Denies hematuria, Denies dysuria and Reports scrotal swelling Musculoskeletal: Musculoskeletal: Denies back pain and Denies neck pain Neurologic: Denies headache(s) and Reports weakness [facility] Past Medical History Medical History 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 heart failure Arthritis CAD (coronary artery disease) CABG x4 2018 Cardiac arrhythmia Went into Afib after CABG 2018 Cataract Diabetes Elevated lipids History of amputation of toe Left 5th toe 2013 Myocardial infarction Peripheral neuropathy Psychiatric diagnosis Surgical History Surgical History History of quadruple bypass 2018 Hx of cardiac cath History of PCI Family History Family History Sibling History of blood clots Family history of blood dyscrasia, Onset Age: 200 Patient's sister is Acute myocardial infarction Father Family history of heart disease in male family member before age 55 Acute myocardial infarction, Onset Age: 65 Patient's father is Mother History of blood clots Patient's mother is Hypertension, Onset Age: 80 Social History Social History Smoking status: Former smoker Tobacco type: cigarettes Smoking end date: 09/15/19 Alcohol intake: current Substance use: current Substance use type: marijuana Other substance usage details: Occasional marijuana use Additional living arrangements comments: Lives with his niece currently Additional occupation/education comments: He is disabled. Gender identity (if verbalized by the patient): Male Exam Const: General: no acute distress and well developed Orientation/consciousness: oriented to person, oriented to place, oriented to time and patient oriented x3 HENMT: Head: normocephalic Ears: external ears normal General nose exam: Normal external nose present Eyes: General: appearance normal, both eyes and a
[2020-03-13 16:47] VITALS: PULSE 68
[2020-03-13 16:48] VITALS: BP 161/76; PULSE 68; RESP 20; O2SAT 98
[2020-03-13 16:54] LABS: Basophils Absolute Auto 0.1 K/mm3 (0.0-0.1); Basophils Percent Auto 0.7 % (0.2-1.2); Eosinophils Absolute Auto 0.3 K/mm3 (0-0.3); Eosinophils Percent Auto 3.3 % (0-4.4); Hematocrit 32.3 % (42.0-52.0); Hemoglobin 9.9 g/dL (14.0-18.0); Immature Granulocyte Absolute 0.04 K/mm3 (0.00-0.031); Immature Granulocyte Percent A 0.5 % (0-0.5); Mean Corpuscular HGB Conc 30.7 g/dl (32-36); Mean Corpuscular Volume 88.3 fl (80-100); Mean Platelet Volume 11.4 fl (7.4-10.4); Monocytes Absolute Auto 0.8 K/mm3 (0.1-0.6); Monocytes Percent Auto 9.5 % (2.6-8.5); Neutrophils Absolute Auto 6.8 K/mm3 (1.3-6.7); Platelet Count Result 230 k/mm3 (150-375); Red Blood Count 3.66 M/mm3 (4.6-6.20); White Blood Count 8.6 K/mm3 (4.5-10.0)
[2020-03-13 17:05] LABS: Alanine Aminotransferase 16 U/L (4-50); Albumin Level 3.1 g/dL (3.5-5.1); Alkaline Phosphatase 146 U/L (38-126); Aspartate Amino Transferase 20 U/L (17-59); Bilirubin,Total 0.2 mg/dL (0.2-1.3); Blood Urea Nitrogen 48 mg/dL (9-20); Calcium 8.1 mg/dL (8.4-10.2); Carbon Dioxide 19 mmol/L (22-30); Chloride 115 mmol/L (98-107); Estimated CRCL calculation 43 ml/min; Estimated Glomerular Filt Rate 30; Glucose 234 mg/dL (75-110); Potassium 5.2 mmol/L (3.4-5.0); Sodium 141 mmol/L (137-145)
[2020-03-13 17:17] LABS: NT Pro B Type Natriuretic Pept > 35000 PG/ML (5-100); Troponin I 0.018 ng/mL (0.000-0.034)
[2020-03-13] MEDS: FUROSEMIDE INJ 40 MG/4 ML VIAL IV PUSH (17:58)
[2020-03-13 18:16] VITALS: BP 166/77; PULSE 64; RESP 18; O2SAT 91
[2020-03-13 18:58] VITALS: BP 157/78; PULSE 66; RESP 22; O2SAT 96
[2020-03-13 19:45] VITALS: BP 168/75; PULSE 67; RESP 18; TEMP 36.4; O2SAT 100; BMI 38.1
--- NOTE | 2020-03-13 19:45 | ADMGEN ---
This patient, Kobi Salter, was admitted to [facility] Surg Room 329-01. Patient/family oriented to hospital policies and general routines including ID bracelet, bed and alarms, visiting hours, pain management, procedures, bathroom and other care routines, personal items, smoking policy, room service/diet, and visiting hours. Valuables list has been completed. Information on how to activate the Rapid Response Team has been discussed. Patient/Family are encouraged to report perceived risks to care and to ask questions if they do not understand what they are told or what they should do.
[2020-03-13] MEDS: levoFLOXacin 500 MG/D5W 100 ML 500 MG/100 ML BAG 100 MG IVPB (20:05)
[2020-03-13 23:10] LABS: Troponin I 0.022 ng/mL (0.000-0.034)
[2020-03-14] VITALS (12 sets, daily range): BP systolic 151–176; BP diastolic 65–81; PULSE 62–69; RESP 18; TEMP 36.3–36.8; O2SAT 99–100
--- NOTE | 2020-03-14 06:04 | PM.IMHP ---
H&P: HPI History of Present Illness Chief complaint: Weakness, swelling Narrative: Date and time of patient contact: 03/14/2020 at 3:00 a.m. Koib Salter is a 54 year old male with a past medical history of right and left-sided heart failure cava chronic kidney disease stage 3 and uncontrolled diabetes mellitus who presented to the ER from home due to weakness and swelling. The patient had recently been hospitalized for CHF exacerbation in December. His Entresto was to be held at that time due to acute on chronic renal failure and he was to be discharged on Lasix 40 mg daily. The patient stated that he could not read his discharge instructions due to his severe cataracts. He states he did not realize that he was post be on Lasix and he did not receive the prescription from his pharmacy. He also did not realize that his Entresto was was stopped and had continued to take it. He reports that he started having increased lower extremity swelling within a few days of being discharged from the hospital. He does not have a scale at home has not been weighing himself. But it sounds as if the patient may have gained at least 15 lb between his last hospitalization in his current hospitalization. He reports that his he was having waxing and waning lower extremity swelling for a month or so. Over the last 2 weeks he has noticed significant scrotal swelling as well. He has noticed increased abdominal girth. The symptoms have been accompanied by progressive weakness. Over the last 2 or 3 days he has noticed progressive orthopnea and development of a dry cough when in a reclining position. He denies any chest pain or palpitations. During his recent hospitalization he had an echocardiogram that demonstrated EF of less than 30%. It was recommended at that time that he have a life vest. He became frustrated with the process of a life vest and opted to not proceed with life vest at time of discharge. The patient did not follow-up with his snow groomer Dr. Gee. He claims to be maintaining a low-sodium diet. But he also states that he is eating Eliz collendar meals. He does have chronic intermittent diarrhea ever since this heart bypass procedure in 2018. His diarrhea is variable depending on his diet. He has not yet followed up with the asbestos removal worker regarding his diarrhea. He is supposed to be scheduled for his right cataract extraction sometime in the next couple of weeks. He now has near perfect distance vision with his left eye (per his report). He has not been checking his Accu-Cheks. He received a continuous glucose monitor in the mail but has not applied it. He sees an informatica architect. His snow groomer is Dr. Gee. He does not have a primary care physician. He has not been out of the house except for his cataract procedure 5 weeks ago and for his follow-up appointments with Ophthalmology. Review of Systems Review of Systems: Narrative: 12 systems were reviewed with pertinent positives and negatives per HPI. Except as documented in the HPI, all other systems were reviewed and are negative. 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 heart failure With echocardiogram January 2020 demonstrating moderate left ventricular enlargement, EF 25-30%, abnormal diastolic function, E/e' mildly elevated, moderate right ventricular systolic dysfunction, severe left atrial enlargement, mild pulmonary hypertension with RVSP of 42 Anemia of chronic disease Anxiety and depression Arthritis CAD (coronary artery disease) CABG x4 2017, Lexiscan stress test January 2020 moderate sized mild partially reversible perfusion defect involving inferior wall consistent with mixed ischemia and infarct, large severe partially reversible perfusion defect involving the anterior lateral and inferior lateral wall consistent with mixed ischemia infarct, small mil
[2020-03-14 06:22] LABS: Hematocrit 30.8 % (42.0-52.0); Hemoglobin 9.4 g/dL (14.0-18.0); Mean Corpuscular HGB Conc 30.5 g/dl (32-36); Mean Corpuscular Hemoglobin 26.5 pg (26-34); Mean Corpuscular Volume 86.8 fl (80-100); Mean Platelet Volume 11.5 fl (7.4-10.4); Platelet Count Result 233 k/mm3 (150-375); Red Blood Count 3.55 M/mm3 (4.6-6.20); White Blood Count 7.9 K/mm3 (4.5-10.0)
[2020-03-14 06:42] LABS: Blood Urea Nitrogen 45 mg/dL (9-20); Calcium 8.1 mg/dL (8.4-10.2); Carbon Dioxide 21 mmol/L (22-30); Chloride 113 mmol/L (98-107); Estimated CRCL calculation 45 ml/min; Estimated Glomerular Filt Rate 30; Glucose 152 mg/dL (75-110); Magnesium 1.8 mg/dL (1.6-2.3); Potassium 4.5 mmol/L (3.4-5.0); Sodium 140 mmol/L (137-145)
[2020-03-14 07:10] LABS: Hemoglobin A1C 9.4 % (<5.7)
[2020-03-14] MEDS: carvediloL 3.125 MG TABLET PO (08:33)
[2020-03-14] MEDS: FENOFIBRATE,MICRONIZED 48 MG TABLET PO (08:34)
[2020-03-14] MEDS: CHOLECALCIFEROL 1,000 UNIT TABLET 1000 UNITS PO (08:34)
[2020-03-14] MEDS: SACUBITRIL/VALSARTAN 24-26 MG TABLET 1 TAB PO ×2 (08:35→17:56)
[2020-03-14] MEDS: FUROSEMIDE INJ 40 MG/4 ML VIAL IV PUSH ×2 (08:35→16:49)
[2020-03-14] MEDS: ROSUVASTATIN 10 MG TABLET 40 MG PO (08:35)
[2020-03-14 09:03] LABS: Glucose Point of Care 139 (65-105)
[2020-03-14] MEDS: amLODIPine BESYLATE 5 MG TABLET PO (10:21)
[2020-03-14] MEDS: CHOLESTYRAMINE LIGHT 4 GM POWD.PACK PO ×2 (10:21→17:56)
[2020-03-14 10:42] LABS: SARS-CoV-2 RNA PCR Negative
--- NOTE | 2020-03-14 12:08 | PM.CNCAR ---
Assessment and Plan Assessment and plan (1) 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 heart failure: Code(s): I50.43 - Acute on chronic combined systolic (congestive) and diastolic (congestive) heart failure Status: Acute Assessment and Plan: Agree with Lasix 40 mg IV BID. On Entresto and Coreg. Monitor electrolytes and kidney function. (2) Hypertension: Code(s): I10 - Essential (primary) hypertension Status: Acute Assessment and Plan: Increase Coreg 6.25 mg BID and start Amlodine 5 mg daily. (3) CAD (coronary artery disease), autologous vein bypass graft: Code(s): I25.810 - Atherosclerosis of coronary artery bypass graft(s) without angina pectoris Status: Acute (4) Elevated lipids: Code(s): E78.5 - Hyperlipidemia, unspecified Status: Acute (5) CKD (chronic kidney disease) stage 3, GFR 30-59 ml/min: Code(s): N18.3 - Chronic kidney disease, stage 3 (moderate) Status: Acute History of Present Illness History of Present Illness Consult date/time: 03/14/20 12:08 Reason for consult: CHF. 54 yr old man who is my regular cardiology patient who has a history of CAD/CABG x 4 vessels at [facility] in Sep 2017 and had post op atrial fib but without recurrence, chronic systolic and diastolic dysfunction, DM, smoking, hypertension, dyslipidemia. Reports since discharge from hospital 2 months ago he did not know he was supposed to be taking Lasix, as he had cataracts and could not see. He reports gradually increasing in sob and swelling of his legs so he decided to come in for evaluation. He also reports some orthopnea. He is able to walk about <1 block with a cane and limited by leg neuropathy and GARCIA. Reports chronic diarrhea intermittently since his CABG surgery but has not seen GI for it. Denies chest pain, palpitations. CXR shows small bilateral pleural effusions, NTpro BNP>35,000. EKG shows Sinus rhythm with LBBB. January 2020 Lexiscan myoview was a suboptimal study with diffuse scar. January 2020 Echo shows EF 25-30% with dilated LV, diastolic dysfunction, RV dysfunction with mild pulm hypertension. His EF fluctuates between 30-40% in the past. On Coreg. Started 01/13/20 on Entresto. Discussed Life Vest to prevent sudden cardiac arrest with patient and he wants to think about. Reason For Visit: Weakness, swelling Review of Systems Review of Systems: All systems reviewed & are unremarkable except as noted in HPI and below Constitutional: Constitutional: Reports as per HPI, Denies chills, Reports fatigue and Reports weakness Cardiovascular: Cardiovascular: Reports as per HPI, Denies chest pain, Reports leg edema and Denies lightheadedness Respiratory: Respiratory: Reports as per HPI and Reports dyspnea Gastrointestinal: Gastrointestinal: Reports as per HPI, Denies abdominal pain and Reports diarrhea Genitourinary: Genitourinary: Reports as per HPI Musculoskeletal: Musculoskeletal: Reports as per HPI Neurologic: Reports as per HPI [facility] Past Medical History Medical History (Updated 03/14/20 @ 12:13 by Nasim Gee DO) 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 heart failure With echocardiogram January 2020 demonstrating moderate left ventricular enlargement, EF 25-30%, abnormal diastolic function, E/e' mildly elevated, moderate right ventricular systolic dysfunction, severe left atrial enlargement, mild pulmonary hypertension with RVSP of 42 Anemia of chronic disease Anxiety and depression Arthritis CAD (coronary artery disease) CABG x4 2017, Lexiscan stress test January 2020 moderate sized mild partially reversible perfusion defect involving inferior wall consistent with mixed ischemia and infarct, large severe partially reversible perfusion defect involving the anterior lateral and inferior lateral wall consistent with mixed ischemia infarct, small mild partially reversible freezing defect involving left ventricu
[2020-03-14 13:15] LABS: Glucose Point of Care 196 (65-105)
--- NOTE | 2020-03-14 13:44 | PM.IMPN ---
Progress Note: A&P Assessment and Plan (1) Acute exacerbation of CHF (congestive heart failure): Code(s): I50.9 - Heart failure, unspecified Status: Acute Assessment and Plan: -----patient still has significant swelling so we will continue Lasix 40 mg b.i.d.. It does not look like his input and output has been updated so I am not sure how much he has gotten out so far. I am going to ask them to reweigh the patient because initially yesterday he was weighed in at 113 and then later that day was 127. He was 117 in December the day of discharge. Will monitor weights, input and output, and symptoms. The patient has not had any chest pain and his dyspnea on exertion is getting better. He saw Dr. Gee who agrees with the current treatment at this time. Will also continue Entresto, and carvedilol. It does not look like he is on aspirin and with hx of CABG I will start one. (2) Weakness: Code(s): R53.1 - Weakness Status: Acute Assessment and Plan: -----Due to physical deconditioning worsened with CHF exacerbation. Continue PT OT (3) Diabetes mellitus with hyperglycemia: Code(s): E11.65 - Type 2 diabetes mellitus with hyperglycemia Status: Acute Assessment and Plan: -----last glucose 196. Continue Accu-Cheks,sliding scale insulin with 20 units of Lantus at this time. (4) Chronic diarrhea: Code(s): K52.9 - Noninfective gastroenteritis and colitis, unspecified Status: Acute Assessment and Plan: -----spoke with the patient extensively about the importance of getting a colonoscopy. Operations Research Manager started cholestyramine, will see how he does with that. Time Spent With Patient Time with patient: 25 - 35 minutes Subjective Date/time seen: 03/14/20 13:44 Interval history: Pt is a 54-year-old male who presented emergency room for 60 lb weight gain since September, lower extremity swelling, and GARCIA. Patient states that since his [id number] 2 months ago, he has been eating out a lot which caused him to have swelling in his lower extremities that had moved up to his thighs, scrotum and now in his abdomen. He says he cannot lay flat and he feels short of breath when he does activities but can walk to the bathroom just fine. He used to have sleep apnea before he lost a couple 100 lb and states he needs to be retested now that he has lost the weight. He also mentions that he has been having chronic diarrhea on again and off again for the last 4 years. He has never had a colonoscopy and we discussed the importance of getting a colonoscopy as soon as his heart failure is stabilized. He denies chest pain, nausea, vomiting, fevers or chills. He has been eating and drinking okay. Review of Systems Review of Systems: All systems reviewed & are unremarkable except as noted in HPI and below Exam Narrative: Exam Narrative: General: Overweight patient resting comfortably in bed in no acute distress HEENT: normocephalic Neck: supple Neuro: Alert and oriented x4 CV:RRR. Telemetry shows occasional trigeminy. No significant arrhythmias noted Resp:CTA Abd: Soft, non distended. No pain to palpation. Positive bowel sounds Extremities: Pitting edema up to the thighs. No erythema or open wounds. Objective Data Vital Signs Vital Signs: Vital Signs - 24 hr 03/13/20 15:47 03/13/20 16:47 03/13/20 16:48 Temperature 97.8 F Pulse Rate 74 68 68 Respiratory Rate 18 20 Blood Pressure 143/70 H 161/76 H Pulse Oximetry 95 98 03/13/20 18:16 03/13/20 18:58 03/13/20 19:45 Temperature 97.6 F Pulse Rate 64 66 67 Respiratory Rate 18 22 H 18 Blood Pressure 166/77 H 157/78 H 168/75 H Pulse Oximetry 91 96 100 03/14/20 00:00 03/14/20 02:00 03/14/20 04:00 Temperature 97.6 F Pulse Rate 66 66 69 Respiratory Rate 18 Blood Pressure 172/81 H Pulse Oximetry 100 03/14/20 06:00 03/14/20 08:33 03/14/20 10:00 Temperature 97.7 F 98.2 F Pulse R
[2020-03-14 17:43] LABS: Glucose Point of Care 205 (65-105)
[2020-03-14] MEDS: INSULIN ASPART (*BKC) 100 UNITS/ML SUB-Q (17:43)
[2020-03-14] MEDS: INSULIN GLARGINE (*BKC) 100 UNITS/ML 20 UNITS SUB-Q (21:34)
[2020-03-14] MEDS: carvediloL 6.25 MG TABLET PO (21:41)
[2020-03-14 21:49] LABS: Glucose Point of Care 234 (65-105)
[2020-03-15] VITALS (12 sets, daily range): BP systolic 136–145; BP diastolic 66–77; PULSE 59–76; RESP 16–18; TEMP 36.1–36.8; O2SAT 98–100
[2020-03-15 06:31] LABS: Hematocrit 31.7 % (42.0-52.0); Hemoglobin 9.7 g/dL (14.0-18.0); Mean Corpuscular HGB Conc 30.6 g/dl (32-36); Mean Corpuscular Hemoglobin 26.5 pg (26-34); Mean Corpuscular Volume 86.6 fl (80-100); Platelet Count Result 227 k/mm3 (150-375); Red Blood Count 3.66 M/mm3 (4.6-6.20); Red Cell Distribution Width 18.7 % (11.5-14.5); White Blood Count 8.5 K/mm3 (4.5-10.0)
[2020-03-15 06:41] LABS: Blood Urea Nitrogen 44 mg/dL (9-20); Calcium 8.2 mg/dL (8.4-10.2); Carbon Dioxide 21 mmol/L (22-30); Chloride 113 mmol/L (98-107); Estimated CRCL calculation 45 ml/min; Estimated Glomerular Filt Rate 30; Glucose 146 mg/dL (75-110); Magnesium 1.8 mg/dL (1.6-2.3); Potassium 4.6 mmol/L (3.4-5.0); Sodium 140 mmol/L (137-145)
--- NOTE | 2020-03-15 07:59 | PM.PNCARD ---
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 Increase Entresto 49-51 mg BID. (3) Hypertension: Code(s): I10 - Essential (primary) hypertension Status: Acute Assessment and Plan: High. Added Amlodipine 5 mg daily and Coreg 6.25 mg BID. Increase Entresto. (4) CAD (coronary artery disease), autologous vein bypass graft: Code(s): I25.810 - Atherosclerosis of coronary artery bypass graft(s) without angina pectoris Status: Acute (5) Elevated lipids: Code(s): E78.5 - Hyperlipidemia, unspecified Status: Acute Subjective Date/time seen: 03/15/20 07:59 Reports breathing and edema of legs improving. No chest pain. Exam Const: General: comfortable and no acute distress Neck: Neck: no JVD Carotids: no bruits Resp: Auscultation: clear to auscultation bilaterally, no crackles, no rales, no rhonchi and no wheezes Cardio: Rate: regular rate Rhythm: regular rhythm Heart sounds: no murmurs GI: Inspection: non-distended Neuro: Speech: normal speech Extrem: Right lower extremity: edema Left lower extremity: edema Other: Mod edema of both legs Objective Data Vital Signs Vital Signs: Vital Signs - 24 hr 03/14/20 08:00 03/14/20 08:33 03/14/20 10:00 Temperature 98.2 F Pulse Rate 69 66 66 Respiratory Rate 18 Blood Pressure 156/72 H Pulse Oximetry 99 03/14/20 12:00 03/14/20 14:00 03/14/20 16:00 Temperature 98.0 F Pulse Rate 69 66 62 Respiratory Rate 18 Blood Pressure 176/69 H Pulse Oximetry 100 03/14/20 21:00 03/14/20 22:00 03/15/20 00:00 Temperature 97.3 F L Pulse Rate 62 63 61 Respiratory Rate 18 18 Blood Pressure 151/65 H Pulse Oximetry 100 99 03/15/20 04:00 03/15/20 06:00 Temperature 97.4 F L Pulse Rate 59 L 59 L Respiratory Rate 18 Blood Pressure 136/77 Pulse Oximetry 100 Intake/Output Intake/Output: Intake & Output 03/12/20 03/13/20 03/14/20 03/15/20 23:59 23:59 23:59 23:59 Intake Total 100 1860 100 Output Total 1500 1125 Balance 100 360 -1025 Meds/Results Medications: Active Medications Generic Name Dose Route Start Last Admin Trade Name Freq PRN Reason Stop Dose Admin Amlodipine Besylate 5 mg 03/14/20 10:00 03/14/20 10:21 Norvasc PO 5 mg QAM SALVADOR Administration Aspirin 81 mg 03/15/20 09:00 Aspirin Ec PO QAM SALVADOR Carvedilol 6.25 mg 03/14/20 21:00 03/14/20 21:41 Coreg PO 6.25 mg Q12HR SALVADOR Administration Cholestyramine Resin 4 gm 03/14/20 10:00 03/14/20 17:56 Questran Light Packet PO 4 gm BID@1000,1800 SALVADOR Administration Dextrose 12.5 gm 03/14/20 06:01 Dextrose 50% Syringe IV PUSH PRN PRN Hypoglycemia Protocol Fenofibrate 48 mg 03/14/20 09:00 03/14/20 08:34 Tricor PO 48 mg DAILY SALVADOR Administration Ferrous Fumarate 324 mg 03/14/20 08:00 03/14/20 16:50 Víctor-Sequel Tablet Sa PO 324 mg BIDWM SALVADOR Administration Furosemide 40 mg 03/14/20 09:00 03/14/20 16:49 Lasix Inj IV PUSH 40 mg BID SALVADOR Administration Glucagon 1 mg 03/14/20 06:01 Glucagon For Inj IM PRN PRN Hypoglycemia Protocol Glucose 15 gm 03/14/20 06:01 Glutose 15 PO PRN PRN Hypoglycemia Protocol Hydralazine HCl 10 mg 03/14/20 07:18 Apresoline Hcl Inj IV PUSH Q4H PRN SBP greater than 160 Dextrose 1,000 mls @ 100 mls/hr 03/14/20 06:01 Dextrose 5% 1,000 Ml IVPB PRN PRN Hypoglycemia Protocol Insulin Aspart 3 - 6 units 03/14/20 08:00 03/14
[2020-03-15 08:06] LABS: Glucose Point of Care 122 (65-105)
[2020-03-15] MEDS: FENOFIBRATE,MICRONIZED 48 MG TABLET PO (10:18)
[2020-03-15] MEDS: ROSUVASTATIN 10 MG TABLET 40 MG PO (10:19)
[2020-03-15] MEDS: ASPIRIN 81 MG ENTERIC TABLET PO (10:19)
[2020-03-15] MEDS: SACUBITRIL/VALSARTAN 49-51 MG TABLET 1 TABLET PO ×2 (10:19→20:12)
[2020-03-15] MEDS: carvediloL 6.25 MG TABLET PO ×2 (10:19→20:12)
[2020-03-15] MEDS: CHOLECALCIFEROL 1,000 UNIT TABLET 1000 UNITS PO (10:21)
[2020-03-15] MEDS: FUROSEMIDE INJ 40 MG/4 ML VIAL IV PUSH ×2 (10:21→18:45)
[2020-03-15] MEDS: amLODIPine BESYLATE 5 MG TABLET PO (10:21)
[2020-03-15] MEDS: CHOLESTYRAMINE LIGHT 4 GM POWD.PACK PO ×2 (10:21→18:48)
[2020-03-15 12:24] LABS: Glucose Point of Care 211 (65-105)
[2020-03-15] MEDS: INSULIN ASPART (*BKC) 100 UNITS/ML SUB-Q (13:33)
--- NOTE | 2020-03-15 15:37 | PM.IMPN ---
Progress Note: A&P Assessment and Plan (1) Acute exacerbation of CHF (congestive heart failure): Code(s): I50.9 - Heart failure, unspecified Status: Acute Assessment and Plan: Followed by Dr Gee- appreciate input. Today he remains on IV Lasix BID. Dr Gee has increased his Entresto and started Norvasc, Coreg. Continue diuresis and monitor I&Os, symptoms. (2) Weakness: Code(s): R53.1 - Weakness Status: Acute Assessment and Plan: Due to physical deconditioning worsened with CHF exacerbation. Seen by PT/OT, independent for their evaluation. (3) Diabetes mellitus with hyperglycemia: Code(s): E11.65 - Type 2 diabetes mellitus with hyperglycemia Status: Chronic Assessment and Plan: Continue to monitor with accu-cheks; on Lantus and SSI. (4) Chronic diarrhea: Code(s): K52.9 - Noninfective gastroenteritis and colitis, unspecified Status: Chronic Assessment and Plan: Patient describes intermittent diarrhea over the last 4 years, worsened lately. He had diarrhea yesterday but a normal BM today. Questran was added. We discussed the importance of him getting evaluation with colonoscopy as an outpatient when his cardiopulmonary status is more stable. (5) CKD (chronic kidney disease) stage 3, GFR 30-59 ml/min: Code(s): N18.3 - Chronic kidney disease, stage 3 (moderate) Status: Chronic Assessment and Plan: Cr at his baseline based on review of previous labs. Monitor renal function given his requirement for increased diuresis. Recommend establishing with nephrology on an outpatient basis. Subjective Date/time seen: 03/15/20 1230 Interval history: Mr. Salter is a 54yo M admitted for CHF exacerbation. He describes a 60lb weight gain since September with lower extremity swelling up to thigh and abdomen with increasing dyspnea on exertion. Weakness and shortness of breath have limited him at home. Today he notes that his swelling is improving and he feels less short of breath. He denies chest pain. No nausea or vomiting. Review of Systems Review of Systems: Narrative: Twelve systems were reviewed with pertinent positives and negatives as per HPI. Exam Narrative: Exam Narrative: General: Overweight male resting in bed in no acute distress. HEENT: Normocephalic, EOMI, oral mucosa moist. Cardiovascular: Rate and rhythm are regular. Respiratory: Rales left base. Respirations even and nonlabored, some mild conversational dyspnea, tolerating room air. Abdomen: Protuberant but soft, non-tender, bowel sounds present. Extremities: Peripheral pulses intact. Pitting edema to NANCI lower extremities up to thigh. Neuro: No focal neurological deficits. Speech is clear. Objective Data Vital Signs Vital Signs: Last Vital Signs Temp 98.3 F 03/15/20 14:00 Pulse 60 03/15/20 16:00 Resp 16 03/15/20 14:00 BP 143/67 H 03/15/20 14:00 Pulse Ox 100 03/15/20 14:00 Intake/Output Intake/Output: Intake & Output 03/12/20 03/13/20 03/14/20 03/15/20 23:59 23:59 23:59 23:59 Intake Total 100 1860 1060 Output Total 1500 1125 Balance 100 360 -65 Meds/Results Medications: Active Medications Generic Name Dose Route Start Last Admin Trade Name Saulo PRN Reason Stop Dose Admin Amlodipine Besylate 5 mg 03/14/20 10:00 03/15/20 10:21 Norvasc PO 5 mg QAM SALVADOR Administration Aspirin 81 mg 03/15/20 09:00 03/15/20 10:19 Aspirin Ec PO 81 mg QAM SALVADOR Administration Carvedilol 6.25 mg 03/14/20 21:00 03/15/20 10:19 Coreg PO 6.25 mg Q12HR SALVADOR Administration Cholestyramine Resin 4 gm 03/14/20 10:00 03/15/20 10:21 Questran Light Packet PO 4 gm BID@1000,1800 SALVADOR Administration Dextrose 12.5 gm 03/14/20 06:01 Dextrose 50% Syringe IV PUSH PRN PRN
[2020-03-15 18:19] LABS: Glucose Point of Care 127 (65-105)
[2020-03-15] MEDS: INSULIN GLARGINE (*BKC) 100 UNITS/ML 20 UNITS SUB-Q (20:17)
[2020-03-16] VITALS (10 sets, daily range): BP systolic 120–141; BP diastolic 58–64; PULSE 57–68; RESP 16–18; TEMP 36.2–36.7; O2SAT 98–100
[2020-03-16 04:32] LABS: Glucose Point of Care 198 (65-105)
[2020-03-16 06:36] LABS: Hematocrit 30.7 % (42.0-52.0); Hemoglobin 9.5 g/dL (14.0-18.0)
[2020-03-16 06:50] LABS: Blood Urea Nitrogen 45 mg/dL (9-20); Carbon Dioxide 22 mmol/L (22-30); Chloride 110 mmol/L (98-107); Estimated CRCL calculation 45 ml/min; Estimated Glomerular Filt Rate 30; Glucose 80 mg/dL (75-110); Magnesium 1.8 mg/dL (1.6-2.3); Phosphorus 4.4 mg/dL (2.5-4.5); Potassium 4.4 mmol/L (3.4-5.0); Sodium 137 mmol/L (137-145)
[2020-03-16] MEDS: carvediloL 6.25 MG TABLET PO ×2 (07:33→22:26)
[2020-03-16] MEDS: ASPIRIN 81 MG ENTERIC TABLET PO (07:34)
[2020-03-16] MEDS: amLODIPine BESYLATE 5 MG TABLET PO (07:34)
[2020-03-16] MEDS: FENOFIBRATE,MICRONIZED 48 MG TABLET PO (07:35)
[2020-03-16] MEDS: FUROSEMIDE INJ 40 MG/4 ML VIAL IV PUSH (07:36)
[2020-03-16] MEDS: ROSUVASTATIN 10 MG TABLET 40 MG PO (07:36)
[2020-03-16] MEDS: CHOLECALCIFEROL 1,000 UNIT TABLET 1000 UNITS PO (07:36)
--- NOTE | 2020-03-16 07:51 | PM.PNCARD ---
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 Increase Entresto 49-51 mg BID. (3) Hypertension: Code(s): I10 - Essential (primary) hypertension Status: Acute Assessment and Plan: Stable. On Amlodipine 5 mg daily and Coreg 6.25 mg BID. Increased Entresto. (4) CAD (coronary artery disease), autologous vein bypass graft: Code(s): I25.810 - Atherosclerosis of coronary artery bypass graft(s) without angina pectoris Status: Acute (5) Elevated lipids: Code(s): E78.5 - Hyperlipidemia, unspecified Status: Acute Subjective Date/time seen: 03/16/20 07:51 Denies chest pain or sob. Edema improving. Exam Const: General: comfortable and no acute distress Neck: Neck: no JVD Carotids: no bruits Resp: Auscultation: clear to auscultation bilaterally, no crackles, no rales, no rhonchi and no wheezes Cardio: Rate: regular rate Rhythm: regular rhythm Heart sounds: no murmurs GI: Inspection: non-distended Neuro: Speech: normal speech Extrem: Right lower extremity: edema Left lower extremity: edema Other: Mild edema of both legs Objective Data Vital Signs Vital Signs: Vital Signs - 24 hr 03/15/20 08:00 03/15/20 10:19 03/15/20 12:00 Temperature Pulse Rate 63 76 70 Respiratory Rate Blood Pressure Pulse Oximetry 03/15/20 14:00 03/15/20 16:00 03/15/20 20:00 Temperature 98.3 F Pulse Rate 61 60 65 Respiratory Rate 16 Blood Pressure 143/67 H Pulse Oximetry 100 03/15/20 20:11 03/15/20 20:12 03/15/20 21:58 Temperature 97.0 F L Pulse Rate 64 63 65 Respiratory Rate 16 Blood Pressure 145/73 H 138/66 Pulse Oximetry 98 100 03/16/20 00:00 03/16/20 04:00 03/16/20 05:59 Temperature 97.2 F L Pulse Rate 57 L 59 L 58 L Respiratory Rate 18 Blood Pressure 120/60 Pulse Oximetry 98 Intake/Output Intake/Output: Intake & Output 03/13/20 03/14/20 03/15/20 03/16/20 23:59 23:59 23:59 23:59 Intake Total 100 1860 1640 640 Output Total 1500 2175 900 Balance 100 904 -518 -616 Meds/Results Medications: Active Medications Generic Name Dose Route Start Last Admin Trade Name Freq PRN Reason Stop Dose Admin Amlodipine Besylate 5 mg 03/14/20 10:00 03/15/20 10:21 Norvasc PO 5 mg QAM SALVADOR Administration Aspirin 81 mg 03/15/20 09:00 03/15/20 10:19 Aspirin Ec PO 81 mg QAM SALVADOR Administration Carvedilol 6.25 mg 03/14/20 21:00 03/15/20 20:12 Coreg PO 6.25 mg Q12HR SALVADOR Administration Cholestyramine Resin 4 gm 03/14/20 10:00 03/15/20 18:48 Questran Light Packet PO 4 gm BID@1000,1800 SALVADOR Administration Dextrose 12.5 gm 03/14/20 06:01 Dextrose 50% Syringe IV PUSH PRN PRN Hypoglycemia Protocol Fenofibrate 48 mg 03/14/20 09:00 03/15/20 10:18 Tricor PO 48 mg DAILY SALVADOR Administration Ferrous Fumarate 324 mg 03/14/20 08:00 03/15/20 18:44 Víctor-Sequel Tablet Sa PO 324 mg BIDWM SALVADOR Administration Furosemide 40 mg 03/14/20 09:00 03/15/20 18:45 Lasix Inj IV PUSH 40 mg BID SALVADOR Administration Glucagon 1 mg 03/14/20 06:01 Glucagon For Inj IM PRN PRN Hypoglycemia Protocol Glucose 15 gm 03/14/20 06:01 Glutose 15 PO PRN PRN Hypoglycemia Protocol Hydralazine HCl 10 mg 03/14/20 07:18 Apresoline Hcl Inj IV PUSH Q4H PRN SBP greater than 160 Dextrose 1,000 mls @ 100 mls/hr 03/14/20 06:01 Dextrose 5% 1,000 Ml IVPB PRN PRN Hypoglycemia Protocol Insulin As
[2020-03-16] MEDS: SACUBITRIL/VALSARTAN 49-51 MG TABLET 1 TABLET PO (07:54)
[2020-03-16 08:52] LABS: Glucose Point of Care 75 (65-105)
[2020-03-16] MEDS: CHOLESTYRAMINE LIGHT 4 GM POWD.PACK PO ×2 (11:15→16:38)
[2020-03-16 12:34] LABS: Glucose Point of Care 138 (65-105)
--- NOTE | 2020-03-16 13:47 | PM.IMPN ---
Progress Note: A&P Assessment and Plan (1) Acute exacerbation of CHF (congestive heart failure): Code(s): I50.9 - Heart failure, unspecified Status: Acute Assessment and Plan: Followed by Dr Gee- appreciate input. Today he remains on oral Lasix BID. Dr Gee has increased his Entresto and started Norvasc, Coreg. Continue diuresis and monitor I&Os, symptoms. (2) Weakness: Code(s): R53.1 - Weakness Status: Acute Assessment and Plan: Due to physical deconditioning worsened with CHF exacerbation. Seen by PT/OT, independent for their evaluation. Discussed with nursing to help him ambulate in the halls. (3) Diabetes mellitus with hyperglycemia: Code(s): E11.65 - Type 2 diabetes mellitus with hyperglycemia Status: Chronic Assessment and Plan: Blood sugars are appropriate. Continue to monitor with accu-cheks; on Lantus and SSI. (4) Chronic diarrhea: Code(s): K52.9 - Noninfective gastroenteritis and colitis, unspecified Status: Chronic Assessment and Plan: Patient describes intermittent diarrhea over the last 4 years, worsened lately. Questran was added. We discussed the importance of him getting evaluation with colonoscopy as an outpatient when his cardiopulmonary status is more stable. (5) CKD (chronic kidney disease) stage 3, GFR 30-59 ml/min: Code(s): N18.3 - Chronic kidney disease, stage 3 (moderate) Status: Chronic Assessment and Plan: Cr at his baseline based on review of previous labs. Monitor renal function given his requirement for increased diuresis. Today we discussed him following up with nephrology. He saw Dr Bay during his last hospitalization and he can follow up with him outpatient for ongoing CKD management. Subjective Date/time seen: 03/16/20 13:30 Interval history: Mr. Salter is a 54yo M admitted for CHF exacerbation. His shortness of breath has improved, swelling slowly improving. He denies chest pain or shortness of breath. He tells me when he is up walking, he does okay ambulating but he mostly has difficulty standing up from a seated position and feels weak. Tolerating oral intake without nausea or vomiting. Review of Systems Review of Systems: Narrative: Twelve systems were reviewed with pertinent positives and negatives as per HPI. Exam Narrative: Exam Narrative: General: Overweight male resting sitting up on edge of bed eating lunch in no acute distress. HEENT: Normocephalic, EOMI, oral mucosa moist. Cardiovascular: Rate and rhythm are regular. Respiratory: Faint bibasilar rales. Respirations even and nonlabored, tolerating room air. Abdomen: Protuberant but soft, non-tender, bowel sounds present. Extremities: Peripheral pulses intact. Pitting edema to NANCI lower extremities up to thigh. Neuro: No focal neurological deficits. Speech is clear. Objective Data Vital Signs Vital Signs: Last Vital Signs Temp 97.2 F L 03/16/20 05:59 Pulse 58 L 03/16/20 05:59 Resp 18 03/16/20 05:59 BP 120/60 03/16/20 05:59 Pulse Ox 98 03/16/20 05:59 Intake/Output Intake/Output: Intake & Output 03/13/20 03/14/20 03/15/20 03/16/20 23:59 23:59 23:59 23:59 Intake Total 100 1860 1640 1640 Output Total 1500 2175 900 Balance 100 360 -535 740 Meds/Results Medications: Active Medications Generic Name Dose Route Start Last Admin Trade Name Freq PRN Reason Stop Dose Admin Amlodipine Besylate 5 mg 03/14/20 10:00 03/16/20 07:34 Norvasc PO 5 mg QAM SALVADOR Administration Aspirin 81 mg 03/15/20 09:00 03/16/20 07:34 Aspirin Ec PO 81 mg QAM SALVADOR Administration Carvedilol 6.25 mg 03/14/20 21:00 03/16/20 07:33 Coreg PO 6.25 mg Q12HR SALVADOR Administration Cholestyramine Resin 4 gm 03/14/20 10:00 03/15/20 18:48 Anna
--- NOTE | 2020-03-16 16:22 | PC.NURSE ---
0900 BLADDER SCANNED PT BECAUSE PT STATES THAT HE HAS BEEN HAVING DIFFICULTY EMPTYING BLADDER BEFORE COMING INTO THE HOSPITAL PT VOIDED 350 AND BLADDER SCANNED FOR 30 CC
[2020-03-16] MEDS: FUROSEMIDE 40 MG TABLET PO (16:30)
[2020-03-16 17:59] LABS: Glucose Point of Care 182 (65-105)
[2020-03-16] MEDS: INSULIN GLARGINE (*BKC) 100 UNITS/ML 20 UNITS SUB-Q (22:28)
[2020-03-16 22:37] LABS: Glucose Point of Care 211 (65-105)
[2020-03-17] VITALS (11 sets, daily range): BP systolic 121–135; BP diastolic 48–59; PULSE 57–64; RESP 14–18; TEMP 36.7–36.8; O2SAT 96–98
[2020-03-17] MEDS: SACUBITRIL/VALSARTAN 49-51 MG TABLET 1 TABLET PO ×3 (00:14→21:19)
[2020-03-17 06:54] LABS: Blood Urea Nitrogen 50 mg/dL (9-20); Calcium 8.2 mg/dL (8.4-10.2); Carbon Dioxide 19 mmol/L (22-30); Chloride 112 mmol/L (98-107); Estimated CRCL calculation 44 ml/min; Estimated Glomerular Filt Rate 28; Glucose 144 mg/dL (75-110); Potassium 4.6 mmol/L (3.4-5.0); Sodium 138 mmol/L (137-145)
--- NOTE | 2020-03-17 08:02 | PM.PNCARD ---
Progress Note: A&P Assessment and Plan (1) CKD (chronic kidney disease) stage 3, GFR 30-59 ml/min: Code(s): N18.3 - Chronic kidney disease, stage 3 (moderate) Status: Chronic (2) 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 heart failure: Code(s): I50.43 - Acute on chronic combined systolic (congestive) and diastolic (congestive) heart failure Status: Acute Assessment and Plan: On Lasix 40 mg PO BID. Increased Entresto 49-51 mg BID. May d/c home from cardiology standpoint and f/u with me in 1 week. He has a history of RISA but lost weight and stopped using CPAP. Needs outpatient sleep study. (3) Hypertension: Code(s): I10 - Essential (primary) hypertension Status: Acute Assessment and Plan: Stable. On Amlodipine 5 mg daily and Coreg 6.25 mg BID. Increased Entresto. (4) CAD (coronary artery disease), autologous vein bypass graft: Code(s): I25.810 - Atherosclerosis of coronary artery bypass graft(s) without angina pectoris Status: Acute (5) Elevated lipids: Code(s): E78.5 - Hyperlipidemia, unspecified Status: Acute Subjective Date/time seen: 03/17/20 08:02 Denies chest pain or sob. Mod edema of legs. Exam Const: General: comfortable and no acute distress Neck: Neck: no JVD Carotids: no bruits Resp: Auscultation: clear to auscultation bilaterally, no crackles, no rales, no rhonchi and no wheezes Cardio: Rate: regular rate Rhythm: regular rhythm Heart sounds: no murmurs GI: Inspection: non-distended Neuro: Speech: normal speech Extrem: Right lower extremity: edema Left lower extremity: edema Other: Mod edema of both legs Objective Data Vital Signs Vital Signs: Vital Signs - 24 hr 03/16/20 12:00 03/16/20 14:00 03/16/20 16:00 Temperature 98.0 F Pulse Rate 63 65 68 Respiratory Rate 18 Blood Pressure 141/64 H Pulse Oximetry 100 03/16/20 20:00 03/16/20 22:00 03/16/20 22:26 Temperature 97.8 F Pulse Rate 62 62 62 Respiratory Rate 16 Blood Pressure 125/58 L Pulse Oximetry 100 03/17/20 00:00 03/17/20 04:00 03/17/20 05:32 Temperature 98.0 F Pulse Rate 63 60 58 L Respiratory Rate 14 Blood Pressure 121/48 L Pulse Oximetry 96 Intake/Output Intake/Output: Intake & Output 03/14/20 03/15/20 03/16/20 03/17/20 23:59 23:59 23:59 23:59 Intake Total 1860 1640 2560 100 Output Total 1500 2175 1675 525 Balance 360 535 885 425 Meds/Results Medications: Active Medications Generic Name Dose Route Start Last Admin Trade Name Freq PRN Reason Stop Dose Admin Amlodipine Besylate 5 mg 03/14/20 10:00 03/16/20 07:34 Norvasc PO 5 mg QAM SALVADOR Administration Aspirin 81 mg 03/15/20 09:00 03/16/20 07:34 Aspirin Ec PO 81 mg QAM SALVADRO Administration Carvedilol 6.25 mg 03/14/20 21:00 03/16/20 22:26 Coreg PO 6.25 mg Q12HR SALVADOR Administration Cholestyramine Resin 4 gm 03/14/20 10:00 03/16/20 16:38 Questran Light Packet PO 4 gm BID@1000,1800 SALVADOR Administration Dextrose 12.5 gm 03/14/20 06:01 Dextrose 50% Syringe IV PUSH PRN PRN Hypoglycemia Protocol Fenofibrate 48 mg 03/14/20 09:00 03/16/20 07:35 Tricor PO 48 mg DAILY SALVADOR Administration Ferrous Fumarate 324 mg 03/14/20 08:00 03/16/20 16:29 Víctor-Sequel Tablet Sa PO 324 mg BIDWM SALVADOR Administration Furosemide 40 mg 03/16/20 17:00 03/16/20 16:30 Lasix Tablet PO 40 mg BID SALVADOR Administration Glucagon 1 mg 03/14/20 06:01 Glucagon For Inj IM PRN PRN Hypoglycemia Protocol Glucose 15 gm 03/14/20 06:01 Glutose 15 PO PRN PRN Hypoglycemia Protocol Hydralazine HCl 10 mg 03/14/20 07:18 Apresoline Hcl Inj IV PUSH Q4H PRN SBP greater than 160 Dextrose 1,000 mls @ 100 mls/hr 03/14/20 06:01 Dextrose 5% 1,000 Ml IVPB PRN PRN Hypoglycemia Protocol Insulin A
[2020-03-17 08:27] LABS: Glucose Point of Care 103 (65-105)
[2020-03-17] MEDS: ROSUVASTATIN 10 MG TABLET 40 MG PO (09:37)
[2020-03-17] MEDS: CHOLECALCIFEROL 1,000 UNIT TABLET 1000 UNITS PO (09:37)
[2020-03-17] MEDS: FUROSEMIDE 40 MG TABLET PO ×2 (09:38→17:20)
[2020-03-17] MEDS: carvediloL 6.25 MG TABLET PO ×2 (09:39→21:19)
[2020-03-17] MEDS: FENOFIBRATE,MICRONIZED 48 MG TABLET PO (09:39)
[2020-03-17] MEDS: amLODIPine BESYLATE 5 MG TABLET PO (09:39)
[2020-03-17] MEDS: ASPIRIN 81 MG ENTERIC TABLET PO (09:39)
[2020-03-17] MEDS: CHOLESTYRAMINE LIGHT 4 GM POWD.PACK PO ×2 (11:45→19:02)
[2020-03-17 12:25] LABS: Glucose Point of Care 114 (65-105)
--- NOTE | 2020-03-17 16:23 | PM.IMPN ---
Progress Note: A&P Assessment and Plan (1) Acute exacerbation of CHF (congestive heart failure): Code(s): I50.9 - Heart failure, unspecified Status: Acute Assessment and Plan: Dr Gee has increased his Entresto and started Norvasc, Coreg. Continue Oral lasix (2) Weakness: Code(s): R53.1 - Weakness Status: Acute Assessment and Plan: Due to physical deconditioning worsened with CHF exacerbation. Seen by PT/OT, encourage pt to ambulate (3) Diabetes mellitus with hyperglycemia: Code(s): E11.65 - Type 2 diabetes mellitus with hyperglycemia Status: Chronic Assessment and Plan: Blood sugars are appropriate. Continue to monitor with accu-cheks; on Lantus and SSI. (4) Chronic diarrhea: Code(s): K52.9 - Noninfective gastroenteritis and colitis, unspecified Status: Chronic Assessment and Plan: Patient describes intermittent diarrhea over the last 4 years, worsened lately. Questran was added. (5) CKD (chronic kidney disease) stage 3, GFR 30-59 ml/min: Code(s): N18.3 - Chronic kidney disease, stage 3 (moderate) Status: Chronic Assessment and Plan: Cr is 2.4, continue to monitor kidney function. Subjective Date/time seen: 03/17/20 16:23 Interval history: 54 year old male with a past medical history of right and left-sided heart failure cava chronic kidney disease stage 3 and uncontrolled diabetes mellitus who presented to the ER from home due to weakness and swelling. Pt states his legs were so heavy, pt feels better some what still feel his legs are heavy and difficulty standing. Pts cardiology is Dr Gee. Review of Systems Review of Systems: Narrative: Heavy legs and swelling Exam Const: General: cooperative and healthy appearing; No in distress Nutritional Appearance: overweight Orientation/consciousness: oriented to person HENMT: Head: normal to inspection Resp: Effort & Inspection: no respiratory distress Auscultation: rhonchi, wheezes and diminished lung sounds Cardio: Rate: regular rate Rhythm: regular rhythm GI: Inspection: normal to inspection GI Palp: No abdominal tenderness, No Guarding due to palpation present (GI) and No Hepatomegaly present Auscultation: normal bowel sounds Neuro: General: oriented to person Extrem: General: edema (Bilateral pitting up to his shins ) Psych: Mental Status: mental status grossly normal Objective Data Vital Signs Vital Signs: Vital Signs - 24 hr 03/16/20 20:00 03/16/20 22:00 03/16/20 22:26 Temperature 36.6 C Pulse Rate 62 62 62 Respiratory Rate 16 Blood Pressure 125/58 L Pulse Oximetry 100 03/17/20 00:00 03/17/20 04:00 03/17/20 05:32 Temperature 36.7 C Pulse Rate 63 60 58 L Respiratory Rate 14 Blood Pressure 121/48 L Pulse Oximetry 96 03/17/20 08:00 03/17/20 09:39 Temperature Pulse Rate 60 57 L Respiratory Rate Blood Pressure Pulse Oximetry Intake/Output Intake/Output: Intake & Output 03/14/20 03/15/20 03/16/20 03/17/20 23:59 23:59 23:59 23:59 Intake Total 1860 1640 2560 340 Output Total 1500 2175 1675 525 Balance 360 535 885 -185 Meds/Results Medications: Active Medications Generic Name Dose Route Start Last Admin Trade Name Freq PRN Reason Stop Dose Admin Amlodipine Besylate 5 mg 03/14/20 10:00 03/17/20 09:39 Norvasc PO 5 mg QAM SALVADOR Administration Aspirin 81 mg 03/15/20 09:00 03/17/20 09:39 Aspirin Ec PO 81 mg QAM SALVADOR Administration Carvedilol 6.25 mg 03/14/20 21:00 03/17/20 09:39 Coreg PO 6.25 mg Q12HR SALVADOR Administration Cholestyramine Resin 4 gm 03/14/20 10:00 03/17/20 11:45 Questran Light Packet PO 4 gm BID@1000,1800 SALVADOR Administration Dextrose 12.5 gm 07/13/20 06:01 Dextrose 50% Syringe
[2020-03-17 19:40] LABS: Glucose Point of Care 128 (65-105)
[2020-03-17] MEDS: INSULIN GLARGINE (*BKC) 100 UNITS/ML 20 UNITS SUB-Q (21:20)
[2020-03-17 21:37] LABS: Glucose Point of Care 143 (65-105)
[2020-03-18] VITALS (8 sets, daily range): BP systolic 129–144; BP diastolic 61; PULSE 56–65; RESP 18–20; TEMP 36.6–36.8; O2SAT 93–100
[2020-03-18] MEDS: ASPIRIN 81 MG ENTERIC TABLET PO (08:48)
[2020-03-18] MEDS: ROSUVASTATIN 10 MG TABLET 40 MG PO (08:48)
[2020-03-18] MEDS: amLODIPine BESYLATE 5 MG TABLET PO (08:48)
[2020-03-18] MEDS: FENOFIBRATE,MICRONIZED 48 MG TABLET PO (08:48)
[2020-03-18] MEDS: FUROSEMIDE 40 MG TABLET PO (08:48)
[2020-03-18] MEDS: SACUBITRIL/VALSARTAN 49-51 MG TABLET 1 TABLET PO (08:49)
[2020-03-18] MEDS: carvediloL 6.25 MG TABLET PO (08:49)
[2020-03-18] MEDS: CHOLECALCIFEROL 1,000 UNIT TABLET 1000 UNITS PO (08:52)
[2020-03-18 09:49] LABS: Glucose Point of Care 68 (65-105)
[2020-03-18 09:50] LABS: Glucose Point of Care 112 (65-105)
[2020-03-18 09:50] LABS: Glucose Point of Care 66 (65-105)
[2020-03-18] MEDS: CHOLESTYRAMINE LIGHT 4 GM POWD.PACK PO (10:58)
[2020-03-18 12:45] LABS: Glucose Point of Care 134 (65-105)
--- NOTE | 2020-03-18 14:29 | PM.DS ---
DS: Admitting Diagnosis Admitting Diagnosis Admitting Diagnosis: Acute on chronic combined systolic (congestive) and diastolic (congestive) heart failure DS: Discharge Diagnosis Discharge Diagnosis (1) Acute exacerbation of CHF (congestive heart failure): Qualifiers: Heart failure type: unspecified Qualified Code(s): I50.9 - Heart failure, unspecified Code(s): I50.9 - Heart failure, unspecified Status: Acute Assessment and Plan: Followed by Dr Gee- appreciate input. He was diuresed with IV lasix initially then transitioned to oral. Dr Gee has increased his Entresto and started Norvasc, increased his Coreg. (2) Weakness: Code(s): R53.1 - Weakness Status: Acute Assessment and Plan: Due to physical deconditioning worsened with CHF exacerbation. Seen by PT/OT, independent for their evaluation. Follow up with PCP and may qualify for home health at some point if he continues to have issues after swelling is improved. 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 (4) Chronic diarrhea: Code(s): K52.9 - Noninfective gastroenteritis and colitis, unspecified Status: Chronic Assessment and Plan: Patient describes intermittent diarrhea over the last 4 years, worsened lately. Melisaran was added. We discussed the importance of him getting evaluation with colonoscopy as an outpatient when his cardiopulmonary status is more stable. (5) CKD (chronic kidney disease) stage 3, GFR 30-59 ml/min: Code(s): N18.3 - Chronic kidney disease, stage 3 (moderate) Status: Chronic Assessment and Plan: Cr at his baseline based on review of previous labs. We discussed him following up with nephrology. He saw Dr Bay during his last hospitalization and he can follow up with him outpatient for ongoing CKD management. DS: Summary Hospital Course Hospital Course: Date of Service 03/18/20 Mr. Salter is a pleasant 54yo M with history of CHF, type 2 DM, CKD who presented to the ED for evaluation of weakness and swelling. He had noticed swelling to NANCI lower extremities over the last several days which was worsening and eventually involved his scrotum and abdomen. He was treated for acute CHF exacerbation with lasix, initially parenterally then transitioned to oral. He was evaluated by his dye box operator, Dr Gee, who additionally started Norvasc and increased his Coreg dose, increaed his entresto dose. He described issues with intermittent diarrhea over the last 4 years. We discussed he would benefit from getting a colonoscopy once he was diuresed a bit better. We also discussed his renal function and discussed he would benefit from following up with Dr Bay, who he met during his previous hospital admission. Additionally, Dr Gee noted Mr Salter would benefit from an outpatient sleep study. He used to have sleep apnea, then improved after significant weight loss and no longer required CPAP - at this point he should get this repeated. His swelling greatly improved and he was hemodynamically stable for discharge 03/18/20 with instructions to follow up with PCP and with Dr Gee in 1 week. Time Spent with Patient Time attestation: Total time spent providing and/or coordinating discharge services: 35 minutes Exam Narrative: Exam Narrative: General: Male resting sitting up on edge of bed eating lunch in no acute distress. HEENT: Normocephalic, EOMI, oral mucosa m
== END 2020-03-18 18:20 | disposition home or self-care (01) | DRG 291 ==
LOC: ANHED 17:35 → ANH3MEDSUR 18:34
PROVIDERS: Internal Medicine; Physician Assistant; Admitting Provider Internal Medicine; Emergency Provider Emergency Medicine; Visit Provider Physician Assistant
DX: I13.0 Hypertensive heart and chronic kidney disease with heart failure and stage 1 through stage 4 chronic kidney disease, or unspecified chronic kidney disease (principal); I50.43 Acute on chronic combined systolic (congestive) and diastolic (congestive) heart failure; I25.810 Atherosclerosis of coronary artery bypass graft(s) without angina pectoris; E11.22 Type 2 diabetes mellitus with diabetic chronic kidney disease; N18.3 Chronic kidney disease, stage 3 (moderate); D63.8 Anemia in other chronic diseases classified elsewhere; E11.42 Type 2 diabetes mellitus with diabetic polyneuropathy; E11.65 Type 2 diabetes mellitus with hyperglycemia; E11.36 Type 2 diabetes mellitus with diabetic cataract; H26.9 Unspecified cataract; R53.1 Weakness; Z11.59 Encounter for screening for other viral diseases; E78.5 Hyperlipidemia, unspecified; K52.9 Noninfective gastroenteritis and colitis, unspecified; I25.2 Old myocardial infarction; Z79.4 Long term (current) use of insulin; Z87.891 Personal history of nicotine dependence; Z88.0 Allergy status to penicillin; Z95.1 Presence of aortocoronary bypass graft; Z98.42 Cataract extraction status, left eye; Z96.1 Presence of intraocular lens
CPT/HCPCS: 36415; 70450; 71045; 80048; 80053; 83036; 83735; 83880; 84100; 84484; 85014; 85018; 85025; 85027; 87040; 87635; 93005; 94762; 96365; 96366; 96375; 96376; 97161; 97165; 99285; A9270; C9803; G0378; J1815; J1940; J1956; U0003

== ENCOUNTER 2020-05-18 03:14 | Emergency (ER) | payer MEDICARE, MEDICAID, SELFPAY ==
[2020-05-18] VITALS (14 sets, daily range): BP systolic 119–146; BP diastolic 65–112; PULSE 65–87; RESP 16–25; TEMP 37; O2SAT 96–100
--- NOTE | ~2020-05-18 | CT_ITS ---
EXAMINATION: CT brain wo con EXAM DATE: 05/18/2020 03:40 INDICATION: Fall, head injury. TECHNIQUE: Spiral CT of the head was performed without contrast. Axial, coronal and sagittal images were reviewed. The dose-length product (DLP) for this examination was 605.33 mGy-cm. The exposure w as tailored according to patient size, and iterative reconstruction (ASIR) was used as additional dos e reduction technique. Comparison is made to prior examination from 03/13/2020. FINDINGS: There is no acute intraparenchymal hemorrhage. No evidence of intraparenchymal brain mass lesion. No evidence of acute infarction. Please note that initial head CT has limited sensitivity f or small or acute infarctions. There is mild periventricular and subcortical hypodensity, nonspecific but probably related to small vessel ischemic disease. There is mild prominence of the sulci and v entricles related to cerebral atrophy. There is intracranial carotid arteriosclerosis. There are n o extra-axial collections. There is no mass effect or midline shift. Patient has had left-sided ocu lar lens surgery. Soft tissue is unremarkable. The visualized sinuses and mastoid air cells are we ll aerated. IMPRESSION: 1. No acute intracranial findings. 2. Chronic age related findings. Reviewed, dictated and finalized at location A.
--- NOTE | ~2020-05-18 | XR_ITS ---
EXAMINATION: XR foot LT min 3V EXAM DATE: 05/18/2020 07:35 INDICATION: Foot wound, necrotic heel ulcer plantar region. Redness of leg. TECHNIQUE: Left foot dorsoplantar, lateral and oblique projections obtained and reviewed. Comparison is made to prior examination from 03/08/2014. 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 There is some smooth periosteal reaction along the shaft of the 4th metatarsal bone, new compared to prior study. This is nonspecific, but pos sibly from 4th metatarsal stress fracture. There is severe midfoot arthritic change with loss of joint spaces, fragmentation, bony productive ch anges and subchondral lucencies. Appearance is consistent with neuropathic foot, with interval progre ssion compared to 2014. Small inferior, tiny posterior calcaneal spurs. Pes planus. Possible identification of plantar surface soft tissue ulceration without underlying emphysema. No os seous erosion to specifically suggest osteomyelitis. There are faint vascular calcifications. No acut e fracture line is identified. IMPRESSION: 1. Left 4th metatarsal periosteal reaction; can't exclude subacute stress fracture. 2. Progression of neuropathic midfoot. 3. Pes planus. Reviewed, dictated and finalized at location A. IMPRESSION: 1. Left 4th metatarsal periosteal reaction; can't exclude subacute stress frac ture. 2. Progression of neuropathic midfoot. 3. Pes planus.
[2020-05-18] MEDS: MORPHINE SULFATE 4 MG/ML INJ IV PUSH (03:59)
[2020-05-18 04:07] LABS: Basophils Absolute Auto 0.1 K/mm3 (0.0-0.1); Basophils Percent Auto 0.2 % (0.2-1.2); Eosinophils Absolute Auto 0.1 K/mm3 (0-0.3); Eosinophils Percent Auto 0.2 % (0-4.4); Hematocrit 27.1 % (42.0-52.0); Hemoglobin 8.7 g/dL (14.0-18.0); Immature Granulocyte Absolute 0.48 K/mm3 (0.00-0.031); Immature Granulocyte Percent A 1.5 % (0-0.5); Lymphocytes Absolute Auto 0.31 K/mm3 (0.9-3.2); Mean Corpuscular HGB Conc 32.1 g/dl (32-36); Mean Corpuscular Hemoglobin 26.9 pg (26-34); Mean Corpuscular Volume 83.6 fl (80-100); Monocytes Absolute Auto 1.4 K/mm3 (0.1-0.6); Monocytes Percent Auto 4.4 % (2.6-8.5); Neutrophils Absolute Auto 29.1 K/mm3 (1.3-6.7); Neutrophils Percent Auto 92.7 % (45.5-73.1); Platelet Count Result 366 k/mm3 (150-375); Red Blood Count 3.24 M/mm3 (4.6-6.20); Red Cell Distribution Width 17.7 % (11.5-14.5); White Blood Count 31.4 K/mm3 (4.5-10.0)
[2020-05-18 04:44] LABS: Alanine Aminotransferase 16 U/L (4-50); Albumin Level 2.6 g/dL (3.5-5.1); Alkaline Phosphatase 358 U/L (38-126); Anion Gap 9 mmol/L (8-16); Aspartate Amino Transferase 18 U/L (17-59); Bilirubin,Total 1.5 mg/dL (0.2-1.3); Blood Urea Nitrogen 68 mg/dL (9-20); Calcium 8.5 mg/dL (8.4-10.2); Carbon Dioxide 14 mmol/L (22-30); Chloride 112 mmol/L (98-107); Estimated CRCL calculation 43 ml/min; Estimated Glomerular Filt Rate 29; Glucose 404 mg/dL (75-110); Potassium 4.8 mmol/L (3.4-5.0); Sodium 135 mmol/L (137-145)
[2020-05-18 04:48] LABS: NT Pro B Type Natriuretic Pept > 35000 PG/ML (5-100)
[2020-05-18 04:55] LABS: CRP 17.8 mg/dL (<1.0)
[2020-05-18 05:19] LABS: INR 1.8; Prothrombin Time 20.6 Seconds (11.1-14.7)
--- NOTE | 2020-05-18 06:09 | ED.FALL ---
HPI - Fall General Chief Complaint: Fall <Davey Drew MD - Last Filed: 05/18/20 06:48> Stated Complaint: fall <Davey Drew MD - Last Filed: 05/18/20 06:48> Time Seen by Provider: 05/18/20 03:22 <Davey Drew MD - Last Filed: 05/18/20 06:48> Source: patient <Davey Drew MD - Last Filed: 05/18/20 06:48> Mode of arrival: EMS <Davey Drew MD - Last Filed: 05/18/20 06:48> Limitations: no limitations <Davey Drew MD - Last Filed: 05/18/20 06:48> History of Present Illness HPI Narrative: 55-year-old with a history of CAD s/p CABG, diabetes, diastolic CHF, peripheral neuropathy here with complaints of fall in the bathtub around 3 AM this morning. Patient states that he felt weak and fell in the back bathroom. He presently denies headache or loss of consciousness .i <Davey Drew MD - Last Filed: 05/18/20 06:48> Fall from: standing <Davey Drew MD - Last Filed: 05/18/20 06:48> Fall witnessed: no <Davey Drew MD - Last Filed: 05/18/20 06:48> Place fall occurred: home <Davey Drew MD - Last Filed: 05/18/20 06:48> Loss of consciousness: none <Davey Drew MD - Last Filed: 05/18/20 06:48> Prolonged down time: no <Davey Drew MD - Last Filed: 05/18/20 06:48> Symptoms prior to fall: none <MD Ta Tran Last Filed: 05/18/20 06:48> Context: tripped/slipped <MD Ta Tran Last Filed: 05/18/20 06:48> Severity: moderate <MD Ta Tran Last Filed: 05/18/20 06:48> Associated symptoms (after fall): denies <Davey Drew MD - Last Filed: 05/18/20 06:48> Related Data Home Medications: Home Medications Medication Instructions Recorded Confirmed fenofibrate 160 mg tablet 54 mg PO DAILY 09/21/19 03/13/20 insulin glargine U-300 conc 300 15 - 20 unit SUB-Q HS 09/21/19 03/13/20 unit/mL (1.5 mL) subcutaneous pen Cinnamon 2,000 mg BYMOUTH DAILY 01/12/20 03/13/20 cholecalciferol (vitamin D3) 25 mcg PO DAILY 01/12/20 03/13/20 [Vitamin D3] rosuvastatin 40 mg PO DAILY 01/12/20 03/13/20 Fiasp FlexTouch U-100 Insulin 1 - 2 unit SUBCUT TIDWM 03/13/20 03/13/20 <Davey Drew MD - Last Filed: 05/18/20 06:48> Allergies/Adverse Reactions: Allergies Allergy/AdvReac Type Severity Reaction Status Date / Time Penicillins Allergy Unknown Unknown Verified 03/13/20 16:07 <Davey Drew MD - Last Filed: 05/18/20 06:48> Review of Systems Review of Systems: All systems reviewed & are unremarkable except as noted in HPI and below <Davey Drew MD - Last Filed: 05/18/20 06:48> Constitutional: Constitutional: Reports no additional constitutional complaints <Davey Drew MD - Last Filed: 05/18/20 06:48> Eyes: Eyes: Reports no additional eye complaints <Davey Drew MD - Last Filed: 05/18/20 06:48> ENT: Reports system reviewed and no additional complaints, except as documented <Davey Drew MD - Last Filed: 05/18/20 06:48> Cardiovascular: Cardiovascular: Reports no additional cardiovascular complaints <Davey Drew MD - Last Filed: 05/18/20 06:48> Respiratory: Respiratory: Reports no additional respiratory complaints <Davey Drew MD - Last Filed: 05/18/20 06:48> Gastrointestinal: Gastrointestinal: Reports no additional gastrointestinal complaints <MD Ta Tran Last Filed: 05/18/20 06:48> Musculoskeletal: Comments: has neuropathy to both lower extremities, he states that his left foot has ulcer . <Davey Drew MD - Last Filed: 05/18/20 06:48> Neurologic: Reports system reviewed and no additional complaints, except as documented <Davey Drew MD - Last Filed: 05/18/20 06:48> [facility] Past Medical History Medical History: Medical History 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 heart failure With echocardiogram January 2020 demonstrating mode
--- NOTE | 2020-05-18 06:46 | ECG_ITS ---
Measurements Intervals [place] Rate: 70 P: IN: 0 QRS: 2 QRSD: 126 T: 150 QT: 415 QTc: 450 Interpretive Statements SINUS RHYTHM WITH FIRST DEGREE AV BLOCK LEFT BUNDLE BRANCH BLOCK BASELINE ARTIFACT- I, V1, V3 Electronically Signed On 05-18-2020 8:26:08 CDT by Nasim Gee D.O.
[2020-05-18 06:48] LABS: Glucose Point of Care 370 (65-105)
[2020-05-18] MEDS: SODIUM CHLORIDE 0.9% IV 1,000 ML 75 ML IV CONT (07:02)
--- NOTE | 2020-05-18 07:16 | PC.NURSE ---
Report received from NOEMI Amor, to continue care. Pt resting comfortably on stretcher. Note pt's left foot is swollen, pink with black skin on the heel and big toe base. Faint pulse auscultated with doppler.
[2020-05-18] MEDS: INSULIN HUMAN REGULAR (*BKC) 100 UNITS/ML 10 UNITS SUB-Q (07:22)
[2020-05-18 08:07] LABS: Lactic Acid Reflex 1.1 mmol/L (0.7-2.1)
[2020-05-18 08:11] LABS: Glucose Point of Care 341 (65-105)
[2020-05-18 08:27] LABS: Add Urine Microscopic? YES; Appearance Urine Cloudy (Clear); Bacteria Urine Trace /hpf; Bilirubin Urine Negative (Negative); Blood Urine 2+ (Negative); Color Urine Amber (Yellow); Glucose Urine UA 3+ mg/dL (Negative); Hyaline Casts Urine 20-29 /lpf; Ketones Urine Negative (Negative); Leukocyte Esterase Ur Negative LEU/UL (Negative); Mucus Urine Rare /lpf; Nitrate Urine Negative (Negative); Protein Urine 3+ mg/dL (Negative); RBC Urine 0-2 /hpf (0-2); Squamous Epithelial Cell Urine Occasional /hpf (Few); Transitional Epi Cells Urine Rare /hpf (None Seen); Urobilinogen Urine Negative mg/dL (<2.0)
--- NOTE | 2020-05-18 08:44 | PC.NURSE ---
Arrangements made for patient to be transferred to [facility]. Consent form signed.
--- NOTE | 2020-05-18 08:55 | PC.NURSE ---
Call to [facility]. Report approx ETA 0904.
[2020-05-18 09:40] LABS: Glucose Point of Care 339 (65-105)
== END 2020-05-18 10:10 | disposition short-term general hospital (02) ==
PROVIDERS: Family Medicine; Emergency Provider Emergency Medicine
DX: I96 Gangrene, not elsewhere classified (principal); R65.10 Systemic inflammatory response syndrome (SIRS) of non-infectious origin without acute organ dysfunction; E11.52 Type 2 diabetes mellitus with diabetic peripheral angiopathy with gangrene; E11.65 Type 2 diabetes mellitus with hyperglycemia; E11.42 Type 2 diabetes mellitus with diabetic polyneuropathy; R93.6 Abnormal findings on diagnostic imaging of limbs; E11.22 Type 2 diabetes mellitus with diabetic chronic kidney disease; N18.3 Chronic kidney disease, stage 3 (moderate); E11.21 Type 2 diabetes mellitus with diabetic nephropathy; G47.33 Obstructive sleep apnea (adult) (pediatric); I50.43 Acute on chronic combined systolic (congestive) and diastolic (congestive) heart failure; D63.1 Anemia in chronic kidney disease; I25.10 Atherosclerotic heart disease of native coronary artery without angina pectoris; Z95.1 Presence of aortocoronary bypass graft; Z79.4 Long term (current) use of insulin; Z98.42 Cataract extraction status, left eye; Z96.1 Presence of intraocular lens; Z87.891 Personal history of nicotine dependence; Z89.422 Acquired absence of other left toe(s); I44.0 Atrioventricular block, first degree; I44.7 Left bundle-branch block, unspecified; M21.42 Flat foot [pes planus] (acquired), left foot
CPT/HCPCS: 36415; 70450; 73630; 80053; 81001; 82948; 83605; 83880; 85025; 85610; 86140; 87040; 93005; 96361; 96365; 96366; 96367; 96375; 99285; J0692; J1815; J2270; J3370; J7030

== ENCOUNTER 2020-06-01 20:54 | IRF | payer MEDICARE, MEDICAID, SELFPAY ==
--- NOTE | ~2020-06-01 | XR_ITS ---
XR chest 1V portable 06/12/2020 14:17 Indication: Increasing shortness of breath Procedure: AP portable chest Comparison: Comparison to multiple prior studies sequentially, with oldest reviewed study dated 01/2013. Findings: Cardiomegaly. Status post median sternotomy. Mild interstitial edema. Small right pleural e ffusion. No pneumothorax. Impression: 1: Cardiomegaly with interstitial edema. 2: Small right pleural effusion. Reviewed, dictated and finalized at location A. Impression: 1: Cardiomegaly with interstitial edema. 2: Small right pleural effusion.
--- NOTE | ~2020-06-01 | US_ITS ---
EXAMINATION: US renal BI DATE: 06/16/2020 10:15 INDICATION: Acute kidney injury. TECHNIQUE: Multiple ultrasound grayscale images of the kidneys were obtained. COMPARISON: Ultrasound 01/14/2020 FINDINGS: The right kidney measures 11.6 x 6.3 x 5.5 cm. The left kidney measures 10.7 x 5.1 x 5.1 cm. The kidn eys demonstrate normal parenchymal echogenicity. There is no hydronephrosis. The bladder is decompres sed. IMPRESSION: 1. Normal kidneys. No hydronephrosis. Reviewed, dictated and finalized at location A.
--- NOTE | ~2020-06-01 | XR_ITS ---
EXAMINATION: XR chest 1V portable EXAM DATE: 06/15/2020 17:25 INDICATION: History CHF and coronary artery disease. TECHNIQUE: Portable AP frontal chest x-ray was obtained. Comparison is made to prior examination from 06/12/2020. FINDINGS: Sternotomy wires are present without findings to suggest sternal dehiscence. Cardiac silhou ette is enlarged but stable in size compared to prior exam. There is pulmonary vascular congestion. A gain there is probable small to moderate right pleural effusion and small left pleural effusion. Agai n there is diffuse abnormal reticulation most consistent with pulmonary edema. Pneumonia not excludab le. Upper lungs are relatively clear. Accounting for differences in technique, there is no significan t interval change. IMPRESSION: 1. Persistent findings consistent with CHF exacerbation. 2. Small to moderate right, small pleural effusions. Reviewed, dictated and finalized at location A.
--- NOTE | 2020-06-01 19:53 | ADMGEN ---
This patient, Kobi Salter, was admitted to [facility] Room 219-01 at 1935. Patient/family oriented to hospital policies and general routines including ID bracelet, bed and alarms, visiting hours, pain management, procedures, bathroom and other care routines, personal items, smoking policy, room service/diet, and visiting hours. Valuables list has been completed. Information on how to activate the Rapid Response Team has been discussed. Patient/Family are encouraged to report perceived risks to care and to ask questions if they do not understand what they are told or what they should do.
[2020-06-01 21:29] VITALS: BP 158/75; PULSE 74; RESP 18; TEMP 36.4; O2SAT 99
[2020-06-01] MEDS: INSULIN GLARGINE (*BKC) 100 UNITS/ML 8 UNITS SUB-Q (21:58)
[2020-06-01] MEDS: ATORVASTATIN 40 MG TABLET PO (22:00)
[2020-06-01 22:34] LABS: Glucose Point of Care 119 (65-105)
[2020-06-02 04:58] VITALS: BP 160/68; PULSE 62; RESP 18; TEMP 36.2; O2SAT 96
[2020-06-02 05:10] LABS: Basophils Absolute Auto 0.1 K/mm3 (0.0-0.1); Basophils Percent Auto 0.9 % (0.2-1.2); Eosinophils Absolute Auto 0.4 K/mm3 (0-0.3); Eosinophils Percent Auto 4.8 % (0-4.4); Hematocrit 28.5 % (42.0-52.0); Hemoglobin 8.8 g/dL (14.0-18.0); Immature Granulocyte Absolute 0.04 K/mm3 (0.00-0.031); Immature Granulocyte Percent A 0.5 % (0-0.5); Lymphocytes Absolute Auto 0.79 K/mm3 (0.9-3.2); Lymphocytes Percent Auto 10.3 % (18.3-44.2); Mean Corpuscular HGB Conc 30.9 g/dl (32-36); Mean Corpuscular Hemoglobin 27.1 pg (26-34); Mean Corpuscular Volume 87.7 fl (80-100); Mean Platelet Volume 10.7 fl (7.4-10.4); Monocytes Absolute Auto 0.7 K/mm3 (0.1-0.6); Monocytes Percent Auto 8.7 % (2.6-8.5); Neutrophils Absolute Auto 5.7 K/mm3 (1.3-6.7); Neutrophils Percent Auto 74.8 % (45.5-73.1); Platelet Count Result 343 k/mm3 (150-375); Red Blood Count 3.25 M/mm3 (4.6-6.20); Red Cell Distribution Width 18.8 % (11.5-14.5); White Blood Count 7.7 K/mm3 (4.5-10.0)
[2020-06-02 05:31] LABS: Anion Gap 8 mmol/L (8-16); Blood Urea Nitrogen 60 mg/dL (9-20); Calcium 8.4 mg/dL (8.4-10.2); Carbon Dioxide 23 mmol/L (22-30); Chloride 113 mmol/L (98-107); Estimated Glomerular Filt Rate 33; Glucose 135 mg/dL (75-110); Potassium 4.8 mmol/L (3.4-5.0); Sodium 144 mmol/L (137-145)
[2020-06-02 05:32] LABS: Hemoglobin A1C 7.7 % (<5.7)
[2020-06-02 05:40] LABS: Glucose Point of Care 131 (65-105)
[2020-06-02] MEDS: FERROUS SULFATE 324 MG TABLET PO (08:38)
[2020-06-02] MEDS: amLODIPine BESYLATE 5 MG TABLET PO (08:39)
[2020-06-02] MEDS: GABAPENTIN 300 MG CAPSULE PO ×3 (08:39→17:16)
[2020-06-02] MEDS: FUROSEMIDE 40 MG TABLET PO ×2 (08:39→17:16)
[2020-06-02] MEDS: ASPIRIN 81 MG ENTERIC TABLET PO (08:39)
--- NOTE | 2020-06-02 09:46 | PM.CNNEP ---
Assessment and Plan Assessment and plan (1) Chronic kidney disease, stage IV (severe): Code(s): N18.4 - Chronic kidney disease, stage 4 (severe) Status: Acute Assessment and Plan: baseline creatinine runs ~ 2.1 - 2.6mg/dl multifactorial etiology: - depressed ejection fraction/cardiomyopathy (making him prone to prerenal azotemia) - necessity of diuretics to maintain volume status - diabetes - hypertesnion - peripheral vascular disease continue supportive therapy (2) Status post below-knee amputation of left lower extremity: Code(s): Z89.512 - Acquired absence of left leg below knee Status: Acute Assessment and Plan: due to non-salvageable left foot/leg gangrene local wound care continue aggressive PT/OT/rehab (3) Chronic combined systolic and diastolic heart failure: Code(s): I50.42 - Chronic combined systolic (congestive) and diastolic (congestive) heart failure Status: Acute Assessment and Plan: appears compensated at this time follows with Dr. Gee as an outpatient on lasix bid (4) Hypertension: Code(s): I10 - Essential (primary) hypertension Status: Acute Assessment and Plan: elevated at this time follow trend of hemodynamics suspect may need further medication adjustment (5) Anemia: Code(s): D64.9 - Anemia, unspecified Status: Acute Assessment and Plan: likely due to recent operative intervention and CKD follow H/H on oral iron consider Epogen if H/H falls further (6) Diabetes mellitus with multiple complications: Code(s): E11.8 - Type 2 diabetes mellitus with unspecified complications Status: Acute Assessment and Plan: follow accuchecks on Lantus Will continue to follow. History of Present Illness Reason for Consult Consult date: 06/05/20 Reason for consult: chronic renal failure Chief Complaint Chief complaint: L. BKA History of Present Illness Narrative: The patient is a 55-year-old male with a past medical history as outlined below who was transferred from [facility] to the [facility] following his recent hospitalization. He initially presented to [facility] on May 18 2020 after sustaining a fall in the bathtub earlier that morning. he apparently was feeling weak for a few hours prior to the fall leading to the event. He had no reported loss of consciousness or hitting his head or any other symptoms with regard to headache, blurred vision, lightheadedness, nausea, vomiting or confusion. However, on further examination, he was noted to have black necrotic skin lesions over his left heel that he reports has been clinically deteriorating/worsening over the past three weeks. The ER physician had a difficult time ascertaining distal pulses in his left lower extremity and apparently by doppler, this appeared to be absent. Given the concerns for left foot gangrene, he was transferred to [facility] for further evaluation and therapy. During his hospital stay at [facility], it was felt that his left foot wet gangrene would continue to worsen given his significant peripheral vascular disease. He was empirically started on broad-spectrum IV antibiotic therapy and further imaging studies demonstrated soft tissue gas tracking along the left lateral hindfoot but with no evidence of underlying osteomyelitis. Vascular surgery and Plastic surgery was consulted and they felt the foot was nonsalvageable and recommended amputation. He subsequently underwent a left below-knee amputation on on May 19 with subsequent wound closure on 05/25 and wound VAC placement. He tolerated the procedure reasonably well. Eventually, he was deemed stable to be transferred to next level of care and was sent to the rehabilitation [facility] for th
[2020-06-02] MEDS: ACETAMINOPHEN 500 MG TABLET 1000 MG PO (10:19)
--- NOTE | 2020-06-02 11:00 | PM.IMHP ---
H&P: HPI History of Present Illness Date/Time: 06/02/20 11:00 Chief complaint: L. BKA Narrative: Kobi Salter is a 55 year old male The primary rehab improvement category is amputation lower extremity The etiologic diagnosis left foot gangrene is status post left BKA The patient is a 55-year-old right-handed white male with past medical history of coronary artery disease, congestive heart failure status post CABG in 2016, poorly controlled type 2 diabetes mellitus, hypertension, hyperlipidemia, atrial flutter/ atrial fibrillation status post cardioversion, and diabetic neuropathy who presented initially to [facility] from he was transferred to [facility] on May 18, 2020 for concern of left foot gangrene. On May 18, 2020 the patient presented to [facility] with reported fall in the shower. Upon evaluation the patient was found to have black, necrotic tissue on his left heel covering approximately the posterior 1/3 of the sole of his left foot. The patient also reported a resolved approximately 3 weeks of worsening bilateral lower extremity edema, weight gain and dyspnea on exertion and black skin on his heel. In the emergency department [place] 37791 hemoglobin of 8.7 and hematocrit 27.7 platelets [id number], BUN of 68 and creatinine of 2.3, sugar was 404 and sodium 135. He was started on IV vancomycin and cefepime. The patient was then transferred to [facility] vascular surgery for further workup. Patient found with ischemia of the left lower extremity. Underwent left [id number] amputation with drainage by Plastic surgery on May 19, 2020, and he was admitted to the ICU postop for management of metabolic acidosis likely due to poor kidney function. The patient's most recent TTE showed ejection fraction 30%. The patient is suspected to have acute tubular kidney injury, metabolic acidosis acute on chronic congestive heart failure, hypernatremia, hyperkalemia, hypertension and respiratory insufficiency. The patient's labs were monitored and managed accordingly, his fluid restriction has been removed and is currently on room air. He was placed on a bicarb supplement 650 milligram twice a day for acidosis. Patient's bowels have been moving and he is currently in no acute distress. Plastic surgery pulled the drain from the left [id number] amputation site and May 31, 2020. Sineff vena wound VAC was placed to the left BKA site and and amputation shield was placed on May 27, 2020. The patient is nonweightbearing to the left lower extremity for 6 weeks he will be discharged to rehab and subcutaneous heparin for DVT prophylaxis. The patient has not traveled outside the [place] or had contact with someone who is ill that has traveled outside the [place] in the past 21 days. The patient has not traveled to an area of the [place] that is experiencing known transmission of the Coronavirus and has not had close personal contact with anyone that has. Patient does not have a fever. The patient is not experiencing lower respiratory symptoms. Therapy was initiated in the acute care facility and the patient was transferred to us from [facility] on June 01, 2020 The patient has had major surgery in the pass 100 days. The patient has had falls in the past year. Patient has had no falls with injury in the past year. Past medical history, cataract, acute myocardial infarction, male erectile dysfunction, measles, mumps, varicella, coronary artery disease, poorly controlled type 2 diabetes mellitus with hyperglycemia hypertension hyperlipidemia and atrial flutter / atrial fibrillation status post cardioversion, diabetic neuropathy, CHF with recent hospitalization in November of 2019, cardiomyopathy, and obstructive sleep apnea on no CPAP Past surgical history, coronary artery bypass 4 vessels 2015, status post cardioversion, cardiac catheterization, left eye surgery a for complex
[2020-06-02] MEDS: CHOLESTYRAMINE LIGHT 4 GM POWD.PACK PO ×2 (11:32→18:37)
[2020-06-02 12:04] LABS: Glucose Point of Care 166 (65-105)
[2020-06-02] MEDS: HYDROcodone/acetaminophen (*CRX) 5-325 MG TABLET 1 TAB PO (12:53)
[2020-06-02] MEDS: CHOLECALCIFEROL 1,000 UNITS TABLET 2000 UNITS PO (12:54)
[2020-06-02] MEDS: OMEGA 3 POLYUNSAT FATTY ACIDS 1 GM CAP PO (12:54)
[2020-06-02] MEDS: FENOFIBRATE,MICRONIZED 48 MG TABLET PO (12:54)
[2020-06-02] MEDS: MULTIVITAMINS THERAPEUTIC TAB (*BKC) 1 TABLET PO (12:54)
[2020-06-02 14:00] VITALS: BP 156/79; PULSE 66; RESP 20; TEMP 35.7; O2SAT 97
--- NOTE | 2020-06-02 15:02 | RPD ---
INDIVIDUALIZED PLAN OF CARE FOR Kobi Salter Brief Synthesis of Pre-Admission Screen, Post-Admission Evaluation and Therapy Evaluations: The patient presents to rehab with left foot gangrene s/p left BKA. Comorbidities include CAD, poorly controlled type 2 diabetes mellitus with hyperglycemia, diabetic neuropathy, hypertension, hyperlipidemia, CHF with recent hospitalization in 11/2019, cardiomyopathy, obstructive sleep apnea (no CPAP).The complexity of the patient's medical management, nursing, and therapy needs require an inpatient rehab hospital stay with a physician-led interdisciplinary team approach. The patient?s needs will be best met in an intensive program vs. at a lower level of care. The patient requires physician services for medical oversight, management of post-op complications in the setting of present comorbidities, management of new diabetes mellitus diagnosis, and pain management. Post-op complications have included acute metabolic acidosis, hyperkalemia, hypernatremia, acute on chronic congestive heart failure, acute kidney injury on chronic kidney disease, acute blood loss anemia, and acute postoperative pain. The patient requires nursing services for anticoagulation therapy, diabetes training, DVT prophylactics, infection protection, medication management and education, pressure relief, and wound care. Deficits include:ADLs, Balance, Endurance, Family Training/Education, Mobility, Pain Management, ROM, Safety, Strength, and Transfers Glycerin Supervisor/Case Management for: Discharge Planning and Patient/Family Counseling Physical Therapy: 5 days per week for 90 minutes. Treatments may include: Therapeutic Exercise, Gait Training, Neuromuscular Re-education, Transfer Training, Community Reintegration, Bed Mobility, Patient/Family Education, Wheelchair Mobility Group Therapy/Concurrent Therapy Rationales: -Improve attention span during functional activities in a distracted environment. -Enhance problem solving and/or adequate judgment skills during functional activities in a distracted environment. -Promote increased safety awareness in a distracted environment to reduce fall risk with functional tasks, transfers, and ambulation to allow a more safe, self-sufficient return to the home environment. -Improve dynamic balance skills to promote safety and independence with functional activities in a distracted environment for maximum gain. Occupational Therapy: 5 days per week for 90 minutes. Treatments may include: Therapeutic Exercise, Therapeutic Activity, Cognitive Training, Self-Care Transfer Training, Community Reintegration, Home Management, Patient/Family Education, Wheelchair Mobility Training, Energy Conservation Training Group Therapy/Concurrent Therapy Rationales: -Allow therapist to observe and teach generalization and carry-over of skills learned in individual therapy. -Enhance problem solving and sequencing skills during therapeutic activities in a distracted environment. -Promote increased safety awareness in a realistic setting to reduce fall risk with functional tasks due to visual and verbal distractions. -Increase functional level with ADLs, ADL transfers and use of adaptive equipment through therapeutic activities with others while promoting safety to allow a more safe, self-sufficient return home. Medical Prognosis: Good Anticipated Length of Stay: 14 days Rehab Goals: Eating Goal: 06-Independent Oral Hygiene Goal: 06-Independent Toileting Hygiene Goal: 03-Partial/Moderate Assistance Shower/Bathe Self Goal: 04-Supervision or Touching Assistance Upper Body Dressing Goal: 06-Independent Lower Body Dressing Goal: 03-Partial/Moderate Assistance Putting On/Taking Off Footwear Goal: 06-Independent Rolling Left and Right Goal: 06-Independent Sit to Lying Goal: 06-Independent Lying to Sitting on Side of Bed Goal: 06-Independent Sit to Stand Goal: 03-Partial/Moderate Assistance Chair/[id number] Transfer Goal: 04-Supervision or
[2020-06-02 15:05] VITALS: BMI 35.8
[2020-06-02] MEDS: HEPARIN SODIUM 5,000 UNITS/ML VIAL 5000 UNITS SUB-Q ×2 (17:15→20:19)
[2020-06-02 18:00] LABS: Glucose Point of Care 138 (65-105)
[2020-06-02] MEDS: ATORVASTATIN 40 MG TABLET PO (20:19)
[2020-06-02] MEDS: INSULIN GLARGINE (*BKC) 100 UNITS/ML 8 UNITS SUB-Q (20:50)
[2020-06-02 22:00] VITALS: BP 161/82; PULSE 65; RESP 19; TEMP 36.3; O2SAT 95
[2020-06-02 22:40] LABS: Glucose Point of Care 156 (65-105)
[2020-06-03] MEDS: HEPARIN SODIUM 5,000 UNITS/ML VIAL 5000 UNITS SUB-Q ×3 (05:25→22:12)
[2020-06-03 05:32] LABS: Glucose Point of Care 99 (65-105)
[2020-06-03 06:00] VITALS: BP 151/74; PULSE 66; RESP 19; TEMP 36.3; O2SAT 95
[2020-06-03] MEDS: HYDROcodone/acetaminophen (*CRX) 5-325 MG TABLET 2 TAB PO (09:07)
[2020-06-03] MEDS: GABAPENTIN 300 MG CAPSULE PO ×3 (09:08→17:20)
[2020-06-03] MEDS: amLODIPine BESYLATE 5 MG TABLET PO (09:09)
[2020-06-03] MEDS: FENOFIBRATE,MICRONIZED 48 MG TABLET PO (09:09)
[2020-06-03] MEDS: FERROUS SULFATE 324 MG TABLET PO (09:09)
[2020-06-03] MEDS: ASPIRIN 81 MG ENTERIC TABLET PO (09:09)
[2020-06-03] MEDS: FUROSEMIDE 40 MG TABLET PO ×2 (09:10→17:20)
[2020-06-03 09:15] VITALS: PULSE 68; RESP 18; O2SAT 95
--- NOTE | 2020-06-03 11:42 | WPDNEURORHBP ---
Subjective Date/time seen: 06/03/20 11:42 Interval history: this 55-year-old gentleman is here after having had left BKA he is a diabetic and in fact has not been taking care of it as good as he should have been has underlying diabetic neuropathy and also chronic renal failure for which he has seen Dr. Bay in the past and also presently he is stable making progress in the rehab denies any headache nausea vomiting chest pain or shortness of breath Review of Systems Review of Systems: All systems reviewed & are unremarkable except as noted in HPI and below Exam Const: General: comfortable and no acute distress HENMT: General nose exam: Normal nares present Mouth: Yes moist mucous membranes Eyes: General: appearance normal, both eyes and all related structures Neck: Neck: supple and no JVD Resp: Effort & Inspection: normal respiratory effort Auscultation: clear to auscultation bilaterally Cardio: Rate: regular rate Rhythm: regular rhythm GI: GI Palp: Yes Soft to palpation Auscultation: normal bowel sounds Skin: General skin exam: normal color and no rashes or lesions noted Neuro: Other: patient is awake alert well oriented as most likely diabetic retinopathy along with the diabetic peripheral neuropathy which has affected lower extremities for more so than the upper extremities he does have evidence of loss of muscle bulk in both hands and also in the feet and his going to work on it and quite determined at this time to move forward take good care of the diabetes and also follow-up with the primary care physician and the driver 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 Extrem: Other: left BKA and evidence of peripheral neuropathy in both lower extremities and upper extremities as mentioned in my initial history and physical exam Psych: Mental Status: mental status grossly normal Objective Data Vital Signs Vital Signs: Vital Signs - 24 hr 06/02/20 14:00 06/02/20 22:00 06/03/20 06:00 Temperature 35.7 C L 36.3 C L 36.3 C L Pulse Rate 66 65 66 Respiratory Rate 20 19 19 Blood Pressure 156/79 H 161/82 H 151/74 H Pulse Oximetry 97 95 95 06/03/20 09:15 Temperature Pulse Rate 68 Respiratory Rate 18 Blood Pressure Pulse Oximetry 95 Intake/Output Intake/Output: Intake & Output 05/31/20 06/01/20 06/02/20 06/03/20 23:59 23:59 23:59 23:59 Intake Total 720 240 Balance 720 240 Meds/Results Medications: Active Medications Generic Name Dose Route Start Last Admin Trade Name Freq PRN Reason Stop Dose Admin Acetaminophen 1,000 mg 06/01/20 20:59 06/02/20 10:19 Tylenol Tablet PO 1,000 mg Q6H PRN Administration Pain (Scale Score 1-3) Hydrocodone Bitart/Acetaminophen 1 tab 06/02/20 11:18 06/02/20 12:53 [place] 5-325 Mg PO 1 tab Q6H PRN Administration Pain Rated 4-6 Hydrocodone Bitart/Acetaminophen 2 tab 06/02/20 11:18 06/03/20 09:07 [place] 5-325 Mg PO 2 tab Q6H PRN Administration Pain Rated 7-10 Amlodipine Besylate 5 mg 06/02/20 09:00 06/03/20 09:09 Norvasc PO 5 mg DAILY SALVADOR Administration Aspirin 81 mg 06/02/20 09:00 06/03/20 09:09 Aspirin Ec PO 81 mg DAILY SALVADOR Administration Atorvastatin Calcium 40 mg 06/01/20 21:40 06/02/20 20:19 Lipitor PO 40 mg HS SALVADOR Administration Cholestyramine Resin 4 gm 06/02/20 11:00 06/02/20 18:37 Questran Light Packet PO 4 gm 1100,1900 SALVADOR Administration Dextrose 12.5 gm 06/01/20 20:58 Dextrose 50% Syringe IV PUSH PRN PRN Hypoglycemia Protocol Fenofibrate 48 mg 06/02/20 09:00 06/03/20 09:09 Tricor PO 07/03/20 09:01 48 mg DAILY SALVADOR Administration Ferrous Sulfate 324 mg 06/02/20 08:00 06/03/20 09:09 Ferrous Sulfate PO 324 mg DAILY@0800 SALVADOR Administration Fish Oil 1 gm 06/02/20 12:00 06/02/20 12:54 Lovaza PO 1 gm DAILY@1200 SALVADOR Administration Furosemide 40 mg 06/02/20 09:00 06/03/20 09:10 Lasix Tablet PO 40 mg BID SALVADOR Administration Gabape
[2020-06-03 11:54] LABS: Glucose Point of Care 135 (65-105)
[2020-06-03] MEDS: CHOLESTYRAMINE LIGHT 4 GM POWD.PACK PO ×2 (12:32→19:06)
[2020-06-03 13:03] VITALS: BMI 35.8
[2020-06-03 14:00] VITALS: BP 149/70; PULSE 74; RESP 18; TEMP 36.4; O2SAT 97
[2020-06-03] MEDS: MULTIVITAMINS THERAPEUTIC TAB (*BKC) 1 TABLET PO (14:18)
[2020-06-03] MEDS: OMEGA 3 POLYUNSAT FATTY ACIDS 1 GM CAP PO (14:18)
[2020-06-03] MEDS: CHOLECALCIFEROL 1,000 UNITS TABLET 2000 UNITS PO (14:18)
[2020-06-03 17:07] LABS: Glucose Point of Care 121 (65-105)
--- NOTE | 2020-06-03 17:49 | PC.NURSE ---
Patient states he was receiving left eye drops of Prednisolone Acetate due to glaucoma surgery in January of this year. He finished this course per instructions from his doctor at that time. When he came to [facility] from [facility] he was discharged with this medication. patient states he does not need this as it was for his cataract surgery treatment which he has completed. I called Dr. Sue with this information and the Prednisolone Acetate opthalmic suspension has been discontinued.
[2020-06-03 20:00] VITALS: O2SAT 97
[2020-06-03] MEDS: INSULIN GLARGINE (*BKC) 100 UNITS/ML 8 UNITS SUB-Q (20:06)
[2020-06-03] MEDS: ATORVASTATIN 40 MG TABLET PO (20:07)
[2020-06-03 21:41] LABS: Glucose Point of Care 140 (65-105)
[2020-06-03 21:42] VITALS: BP 154/75; PULSE 68; RESP 18; TEMP 36.9; O2SAT 97
[2020-06-04 05:59] VITALS: BP 149/70; PULSE 69; RESP 18; TEMP 36.7; O2SAT 97
[2020-06-04] MEDS: HEPARIN SODIUM 5,000 UNITS/ML VIAL 5000 UNITS SUB-Q ×3 (06:23→22:36)
[2020-06-04 06:40] LABS: Glucose Point of Care 118 (65-105)
[2020-06-04] MEDS: FENOFIBRATE,MICRONIZED 48 MG TABLET PO (08:24)
[2020-06-04] MEDS: FUROSEMIDE 40 MG TABLET PO ×2 (08:24→17:15)
[2020-06-04] MEDS: FERROUS SULFATE 324 MG TABLET PO (08:24)
[2020-06-04] MEDS: amLODIPine BESYLATE 5 MG TABLET PO (08:24)
[2020-06-04] MEDS: SENNA/DOCUSATE SODIUM TABLET 1 TAB PO (08:24)
[2020-06-04] MEDS: ASPIRIN 81 MG ENTERIC TABLET PO (08:24)
[2020-06-04] MEDS: GABAPENTIN 300 MG CAPSULE PO ×3 (08:25→17:15)
[2020-06-04 10:36] VITALS: BP 146/66; PULSE 72; RESP 18; TEMP 36.7; O2SAT 98
[2020-06-04] MEDS: HYDROcodone/acetaminophen (*CRX) 5-325 MG TABLET 2 TAB PO (11:46)
[2020-06-04] MEDS: CHOLESTYRAMINE LIGHT 4 GM POWD.PACK PO ×2 (11:46→20:50)
[2020-06-04] MEDS: OMEGA 3 POLYUNSAT FATTY ACIDS 1 GM CAP PO (11:46)
[2020-06-04] MEDS: CHOLECALCIFEROL 1,000 UNITS TABLET 2000 UNITS PO (11:46)
[2020-06-04] MEDS: MULTIVITAMINS THERAPEUTIC TAB (*BKC) 1 TABLET PO (11:46)
--- NOTE | 2020-06-04 11:58 | P.PNNP_ITS ---
Progress Note: A&P Assessment and Plan (1) Chronic kidney disease, stage IV (severe): Code(s): N18.4 - Chronic kidney disease, stage 4 (severe) Status: Acute Assessment and Plan: * baseline creatinine runs ~ 2.1 - 2.6mg/dl * multifactorial etiology: - depressed ejection fraction/cardiomyopathy (making him prone to prerenal azotemia) - necessity of diuretics to maintain volume status - diabetes - hypertesnion - peripheral vascular disease * continue supportive therapy (2) Status post below-knee amputation of left lower extremity: Code(s): Z89.512 - Acquired absence of left leg below knee Status: Acute Assessment and Plan: * due to non-salvageable left foot/leg gangrene * local wound care * continue aggressive PT/OT/rehab (3) Chronic combined systolic and diastolic heart failure: Code(s): I50.42 - Chronic combined systolic (congestive) and diastolic (congestive) heart failure Status: Acute Assessment and Plan: * appears compensated at this time * follows with Dr. Gee as an outpatient - will consult for further recommendations * on lasix bid (4) Hypertension: Code(s): I10 - Essential (primary) hypertension Status: Acute Assessment and Plan: * better control but still suboptimal * follow trend of hemodynamics * suspect may need further medication adjustment - could resume Entresto but this always seems to worsen his kidney function - add back carvedilol(?) (5) Anemia: Code(s): D64.9 - Anemia, unspecified Status: Acute Assessment and Plan: * likely due to recent operative intervention and CKD * follow H/H * on oral iron * consider Epogen if H/H falls further (6) Diabetes mellitus with multiple complications: Code(s): E11.8 - Type 2 diabetes mellitus with unspecified complications Status: Acute Assessment and Plan: * follow accuchecks * on Lantus Will continue to follow. Subjective Date/time seen: 06/04/20 11:59 Appears to be doing reasonably well at this time; breathing/respiratory status stable; working with PT/OT as tolerated; no apparent distress noted. Exam Narrative: Exam Narrative: General: WD/WN male in NAD Heart: normal S1 and S2; no rub Lungs: clear anteriorly Abdomen: soft, nontender, nondistended, positive bowel sounds Extremities: no cyanosis or clubbing; s/p left BKA Skin: warm and dry Objective Data Vital Signs Vital Signs: Vital Signs Temp Pulse Resp BP Pulse Ox 06/04/20 10:36 36.7 C 72 18 146/66 H 98 06/04/20 05:59 36.7 C 69 18 149/70 H 97 06/03/20 21:42 36.9 C 68 18 154/75 H 97 06/03/20 20:00 97 06/03/20 14:00 36.4 C 74 18 149/70 H 97 Intake/Output Intake/Output: Intake & Output 06/01/20 06/02/20 06/03/20 06/04/20 23:59 23:59 23:59 23:59 Intake Total 720 720 240 Balance 720 720 240 Meds/Results Medications: Active Medications Generic Name Dose Route Start Last Admin Trade Name Freq PRN Reason Stop Dose Admin Acetaminophen 1,000 mg 06/01/20 20:59 06/02/20 10:19 Tylenol Tablet PO 1,000 mg Q6H PRN Administration Pain (Scale Score 1-3) Hydrocodone Bitart/Acetam
--- NOTE | 2020-06-04 11:58 | PM.PNNEP ---
Progress Note: A&P Assessment and Plan (1) Chronic kidney disease, stage IV (severe): Code(s): N18.4 - Chronic kidney disease, stage 4 (severe) Status: Acute Assessment and Plan: baseline creatinine runs ~ 2.1 - 2.6mg/dl multifactorial etiology: - depressed ejection fraction/cardiomyopathy (making him prone to prerenal azotemia) - necessity of diuretics to maintain volume status - diabetes - hypertesnion - peripheral vascular disease continue supportive therapy (2) Status post below-knee amputation of left lower extremity: Code(s): Z89.512 - Acquired absence of left leg below knee Status: Acute Assessment and Plan: due to non-salvageable left foot/leg gangrene local wound care continue aggressive PT/OT/rehab (3) Chronic combined systolic and diastolic heart failure: Code(s): I50.42 - Chronic combined systolic (congestive) and diastolic (congestive) heart failure Status: Acute Assessment and Plan: appears compensated at this time follows with Dr. Gee as an outpatient - will consult for further recommendations on lasix bid (4) Hypertension: Code(s): I10 - Essential (primary) hypertension Status: Acute Assessment and Plan: better control but still suboptimal follow trend of hemodynamics suspect may need further medication adjustment - could resume Entresto but this always seems to worsen his kidney function - add back carvedilol(?) (5) Anemia: Code(s): D64.9 - Anemia, unspecified Status: Acute Assessment and Plan: likely due to recent operative intervention and CKD follow H/H on oral iron consider Epogen if H/H falls further (6) Diabetes mellitus with multiple complications: Code(s): E11.8 - Type 2 diabetes mellitus with unspecified complications Status: Acute Assessment and Plan: follow accuchecks on Lantus Will continue to follow. Subjective Date/time seen: 06/04/20 11:59 Appears to be doing reasonably well at this time; breathing/respiratory status stable; working with PT/OT as tolerated; no apparent distress noted. Exam Narrative: Exam Narrative: General: WD/WN male in NAD Heart: normal S1 and S2; no rub Lungs: clear anteriorly Abdomen: soft, nontender, nondistended, positive bowel sounds Extremities: no cyanosis or clubbing; s/p left BKA Skin: warm and dry Objective Data Vital Signs Vital Signs: Vital Signs Temp Pulse Resp BP Pulse Ox 06/04/20 10:36 36.7 C 72 18 146/66 H 98 06/04/20 05:59 36.7 C 69 18 149/70 H 97 06/03/20 21:42 36.9 C 68 18 154/75 H 97 06/03/20 20:00 97 06/03/20 14:00 36.4 C 74 18 149/70 H 97 Intake/Output Intake/Output: Intake & Output 06/01/20 06/02/20 06/03/20 06/04/20 23:59 23:59 23:59 23:59 Intake Total 720 720 240 Balance 720 720 240 Meds/Results Medications: Active Medications Generic Name Dose Route Start Last Admin Trade Name Freq PRN Reason Stop Dose Admin Acetaminophen 1,000 mg 06/01/20 20:59 06/02/20 10:19 Tylenol Tablet PO 1,000 mg Q6H PRN Administration Pain (Scale Score 1-3) Hydrocodone Bitart/Acetaminophen 1 tab 06/02/20 11:18 06/02/20 12:53 [place] 5-325 Mg PO 1 tab Q6H PRN Administration Pain Rated 4-6 Hydrocodone Bitart/Acetaminophen 2 tab 06/02/20 11:18 06/04/20 11:46 [place] 5-325 Mg PO 2 tab Q6H PRN Administration Pain Rated 7-10 Amlodipine Besylate 5 mg 06/02/20 09:00 06/04/20 08:24 Norvasc PO 5 mg DAILY SALVADOR Administration Aspirin 81 mg 06/02/20 09:00 06/04/20 08:24 Aspirin Ec PO 81 mg DAILY SALVADOR Administration Atorvastatin Calcium 40 mg 06/01/20 21:40 06/03/20 20:07 Lipitor PO 40 mg HS SALVADOR Administration Cholestyramine Resin 4 gm 06/02/20 11:00 06/04/20 11:46 Questran Light Packet PO 4 gm 1100,1900
[2020-06-04 12:43] LABS: Glucose Point of Care 136 (65-105)
[2020-06-04 14:00] VITALS: BP 151/66; PULSE 78; RESP 20; TEMP 36.6; O2SAT 97
[2020-06-04 16:47] LABS: Glucose Point of Care 138 (65-105)
[2020-06-04 20:00] VITALS: PULSE 78; RESP 20; O2SAT 97
[2020-06-04] MEDS: ATORVASTATIN 40 MG TABLET PO (20:49)
[2020-06-04] MEDS: INSULIN GLARGINE (*BKC) 100 UNITS/ML 8 UNITS SUB-Q (20:50)
[2020-06-04 21:03] LABS: Glucose Point of Care 168 (65-105)
[2020-06-04 21:53] VITALS: BP 138/74; PULSE 65; RESP 16; TEMP 36.6; O2SAT 100
[2020-06-05 06:00] VITALS: BP 131/64; PULSE 67; RESP 18; TEMP 37.2; O2SAT 97
[2020-06-05] MEDS: HEPARIN SODIUM 5,000 UNITS/ML VIAL 5000 UNITS SUB-Q ×3 (06:36→22:06)
[2020-06-05 06:45] LABS: Glucose Point of Care 104 (65-105)
[2020-06-05] MEDS: SENNA/DOCUSATE SODIUM TABLET 1 TAB PO (08:20)
[2020-06-05] MEDS: ASPIRIN 81 MG ENTERIC TABLET PO (08:20)
[2020-06-05] MEDS: amLODIPine BESYLATE 5 MG TABLET PO (08:20)
[2020-06-05] MEDS: FENOFIBRATE,MICRONIZED 48 MG TABLET PO (08:20)
[2020-06-05] MEDS: GABAPENTIN 300 MG CAPSULE PO ×3 (08:20→16:44)
[2020-06-05] MEDS: FERROUS SULFATE 324 MG TABLET PO (08:20)
[2020-06-05] MEDS: FUROSEMIDE 40 MG TABLET PO ×2 (08:20→16:44)
[2020-06-05] MEDS: HYDROcodone/acetaminophen (*CRX) 5-325 MG TABLET 1 TAB PO (09:12)
[2020-06-05 10:57] LABS: Basophils Absolute Auto 0.1 K/mm3 (0.0-0.1); Basophils Percent Auto 0.6 % (0.2-1.2); Eosinophils Absolute Auto 0.4 K/mm3 (0-0.3); Eosinophils Percent Auto 5.4 % (0-4.4); Hematocrit 25.8 % (42.0-52.0); Immature Granulocyte Absolute 0.05 K/mm3 (0.00-0.031); Immature Granulocyte Percent A 0.6 % (0-0.5); Lymphocytes Absolute Auto 0.64 K/mm3 (0.9-3.2); Lymphocytes Percent Auto 8.1 % (18.3-44.2); Mean Corpuscular Hemoglobin 27.8 pg (26-34); Mean Corpuscular Volume 89.6 fl (80-100); Mean Platelet Volume 10.6 fl (7.4-10.4); Monocytes Absolute Auto 0.8 K/mm3 (0.1-0.6); Monocytes Percent Auto 10.1 % (2.6-8.5); Neutrophils Absolute Auto 5.9 K/mm3 (1.3-6.7); Neutrophils Percent Auto 75.2 % (45.5-73.1); Platelet Count Result 308 k/mm3 (150-375); Red Blood Count 2.88 M/mm3 (4.6-6.20); Red Cell Distribution Width 18.9 % (11.5-14.5); White Blood Count 7.9 K/mm3 (4.5-10.0)
[2020-06-05 11:23] LABS: Anion Gap 7 mmol/L (8-16); Blood Urea Nitrogen 70 mg/dL (9-20); Calcium 8.3 mg/dL (8.4-10.2); Carbon Dioxide 23 mmol/L (22-30); Chloride 112 mmol/L (98-107); Estimated CRCL calculation 50 ml/min; Estimated Glomerular Filt Rate 35; Glucose 124 mg/dL (75-110); Sodium 142 mmol/L (137-145)
[2020-06-05] MEDS: MULTIVITAMINS THERAPEUTIC TAB (*BKC) 1 TABLET PO (12:00)
[2020-06-05] MEDS: CHOLESTYRAMINE LIGHT 4 GM POWD.PACK PO ×2 (12:00→21:27)
[2020-06-05] MEDS: OMEGA 3 POLYUNSAT FATTY ACIDS 1 GM CAP PO (12:00)
[2020-06-05] MEDS: CHOLECALCIFEROL 1,000 UNITS TABLET 2000 UNITS PO (12:00)
[2020-06-05 12:23] LABS: Glucose Point of Care 120 (65-105)
[2020-06-05 14:00] VITALS: BP 139/66; PULSE 70; RESP 20; TEMP 36.8; O2SAT 99
--- NOTE | 2020-06-05 16:58 | WPDNEURORHBP ---
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 for the congestive heart failure which is stable at this time question he raises the use of the diuretics The patient is doing fairly well denies any headache nausea vomiting chest pain shortness of breath fever chills sore throat Review of Systems Review of Systems: All systems reviewed & are unremarkable except as noted in HPI and below Exam Const: General: comfortable and no acute distress HENMT: General nose exam: Normal nares present Mouth: Yes moist mucous membranes Eyes: General: appearance normal, both eyes and all related structures Neck: Neck: supple and no JVD Resp: Effort & Inspection: normal respiratory effort Auscultation: clear to auscultation bilaterally Cardio: Rate: regular rate Rhythm: regular rhythm GI: GI Palp: Yes Soft to palpation Auscultation: normal bowel sounds Skin: General skin exam: normal color and no rashes or lesions noted Neuro: Other: patient is awake and alert will oriented follows all commands has generalized weakness and also left BKA needing assistance all the in all the activities of daily Extrem: Other: left BKA is clean no bleeding or sign of infection Psych: Mental Status: mental status grossly normal Objective Data Vital Signs Vital Signs: Vital Signs - 24 hr 06/04/20 20:00 06/04/20 21:53 06/05/20 06:00 Temperature 36.6 C 37.2 C Pulse Rate 78 65 67 Respiratory Rate 20 16 18 Blood Pressure 138/74 131/64 Pulse Oximetry 97 100 97 06/05/20 14:00 Temperature 36.8 C Pulse Rate 70 Respiratory Rate 20 Blood Pressure 139/66 Pulse Oximetry 99 Intake/Output Intake/Output: Intake & Output 06/02/20 06/03/20 06/04/20 06/05/20 23:59 23:59 23:59 23:59 Intake Total 720 720 720 480 Balance 720 720 720 480 Meds/Results Medications: Active Medications Generic Name Dose Route Start Last Admin Trade Name Freq PRN Reason Stop Dose Admin Acetaminophen 1,000 mg 06/01/20 20:59 06/02/20 10:19 Tylenol Tablet PO 1,000 mg Q6H PRN Administration Pain (Scale Score 1-3) Hydrocodone Bitart/Acetaminophen 1 tab 06/02/20 11:18 06/05/20 09:12 [place] 5-325 Mg PO 1 tab Q6H PRN Administration Pain Rated 4-6 Hydrocodone Bitart/Acetaminophen 2 tab 06/02/20 11:18 06/04/20 11:46 [place] 5-325 Mg PO 2 tab Q6H PRN Administration Pain Rated 7-10 Amlodipine Besylate 5 mg 06/02/20 09:00 06/05/20 08:20 Norvasc PO 5 mg DAILY SALVADOR Administration Aspirin 81 mg 06/02/20 09:00 06/05/20 08:20 Aspirin Ec PO 81 mg DAILY SALVADOR Administration Atorvastatin Calcium 40 mg 06/01/20 21:40 06/04/20 20:49 Lipitor PO 40 mg HS SALVADOR Administration Cholestyramine Resin 4 gm 06/02/20 11:00 06/05/20 12:00 Questran Light Packet PO 4 gm 1100,1900 SALVADOR Administration Dextrose 12.5 gm 06/01/20 20:58 Dextrose 50% Syringe IV PUSH PRN PRN Hypoglycemia Protocol Fenofibrate 48 mg 06/02/20 09:00 06/05/20 08:20 Tricor PO 07/03/20 09:01 48 mg DAILY SALVADOR Administration Ferrous Sulfate 324 mg 06/02/20 08:00 06/05/20 08:20 Ferrous Sulfate PO 324 mg DAILY@0800 SALVADOR Administration Fish Oil 1 gm 06/02/20 12:00 06/05/20 12:00 Lovaza PO 1 gm DAILY@1200 SALVADOR Administration Furosemide 40 mg 06/02/20 09:00 06/05/20 16:44 Lasix Tablet PO 40 mg BID SALVADOR Administration Gabapentin 300 mg 06/02/20 09:00 06/05/20 16:44 Neurontin PO 300 mg TID SALVADOR Administration Glucagon 1 mg 06/01/20 20:58 Glucagon For Inj IM PRN PRN Hypoglycemia Protocol Glucose 15 gm 06/01/20 20:58 Glutose 15 PO PRN PRN Hypoglycemia Protocol Heparin Sodium (Porcine) 5,000 units 06/02/20 14:00
[2020-06-05 17:18] LABS: Glucose Point of Care 129 (65-105)
--- NOTE | 2020-06-05 18:04 | PM.CNCAR ---
Assessment and Plan Assessment and plan (1) Chronic combined systolic and diastolic heart failure: Code(s): I50.42 - Chronic combined systolic (congestive) and diastolic (congestive) heart failure Status: Acute Assessment and Plan: Restart Coreg 3.125 mg BID and titrate up every 2 weeks if BP and HR allows. Start Valsartan 80 mg daily. Not starting Entresto since it may have worsened kidney function in the past. Recheck echo to see if Life Vest is necessary to prevent sudden cardiac arrest, if patient may be interested. (2) CKD (chronic kidney disease) stage 3, GFR 30-59 ml/min: Code(s): N18.3 - Chronic kidney disease, stage 3 (moderate) Status: Chronic (3) CAD (coronary artery disease), autologous vein bypass graft: Code(s): I25.810 - Atherosclerosis of coronary artery bypass graft(s) without angina pectoris Status: Acute (4) Elevated lipids: Code(s): E78.5 - Hyperlipidemia, unspecified Status: Acute (5) Anemia: Code(s): D64.9 - Anemia, unspecified Status: Acute History of Present Illness History of Present Illness Consult date/time: 06/05/20 18:04 Reason for consult: Chronic systolic heart failure. 55 yr old man who is my regular cardiology patient who has a history of CAD/CABG x 4 vessels at [facility] in Sep 2017 and had post op atrial fib but without recurrence, chronic systolic and diastolic dysfunction, DM, smoking, hypertension, dyslipidemia. On 05/18/20 he presented to our ED after a fall in his bath tub and noted to have gangrene of left leg, and was transferred to [facility] for vascular surgery evaluation. He had gangrene of left leg and had BKA of left leg. He was then transferred to our rehab unit on 06/02/20. Currently denies any chest pain, sob, orthopnea, PND, palpitations. He has right leg edema. January 2020 Lexiscan myoview was a suboptimal study with diffuse scar. January 2020 Echo shows EF 25-30% with dilated LV, diastolic dysfunction, RV dysfunction with mild pulm hypertension. His EF fluctuates between 30-40% in the past. He was on on Coreg and on 01/13/20 Entresto was started. Not sure when or why Coreg and Entresto were discontinued. Nephrology noted that he may have had worsening kidney function with Entresto. Discussed Life Vest to prevent sudden cardiac arrest with patient and at that time he wanted to think about. Reason For Visit: Jani COLINDRES Review of Systems Review of Systems: All systems reviewed & are unremarkable except as noted in HPI and below Constitutional: Constitutional: Reports as per HPI and Denies chills Cardiovascular: Cardiovascular: Reports as per HPI, Denies chest pain, Denies diaphoresis, Reports leg edema and Denies lightheadedness Respiratory: Respiratory: Reports as per HPI and Denies dyspnea Gastrointestinal: Gastrointestinal: Reports as per HPI and Denies abdominal pain Genitourinary: Genitourinary: Reports as per HPI and Denies dysuria Musculoskeletal: Musculoskeletal: Reports as per HPI Neurologic: Reports as per HPI, Denies Abnormal speech present and Denies confusion [facility] Past Medical History Medical History (Updated 06/05/20 @ 08:50 by Jone Bay MD) 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 heart failure With echocardiogram January 2020 demonstrating moderate left ventricular enlargement, EF 25-30%, abnormal diastolic function, E/e' mildly elevated, moderate right ventricular systolic dysfunction, severe left atrial enlargement, mild pulmonary hypertension with RVSP of 42 Anemia of chronic disease Anxiety and depression Arthritis CAD (coronary artery disease) CABG x4 2018, Lexiscan stress test January 2020 moderate sized mild partially reversible perfusion defect involving inferior wall consistent with mixed ischemia and infarct, large severe partially reversible perfusion defect involving the anterior lateral and inferior lateral wall consistent with mixed ischemia infarct, small mil
[2020-06-05 20:00] VITALS: O2SAT 99
[2020-06-05] MEDS: ATORVASTATIN 40 MG TABLET PO (20:55)
[2020-06-05 20:56] VITALS: BP 150/73; PULSE 7; PULSE 72; RESP 18; TEMP 36.6; O2SAT 99
[2020-06-05] MEDS: carvediloL 3.125 MG TABLET PO (20:56)
[2020-06-05] MEDS: INSULIN GLARGINE (*BKC) 100 UNITS/ML 8 UNITS SUB-Q (20:57)
[2020-06-05 21:03] LABS: Glucose Point of Care 146 (65-105)
--- NOTE | 2020-06-06 | ECHO_ITS ---
Patient Info Name: Kobi Salter Age: 55 years : 1965 Gender: Male Ht: 72 in Wt: 263 lbs BSA: 2.50 m2 HR: 71 bpm BP: 151 / 68 mmHg Technical Quality: Good Exam Date: 06/06/2020 10:26 AM Exam Location: [facility] Pulmonary Patient Status: Inpatient Admit Date: 06/01/2020 Staff Ordering Physician: Nasim Gee DO Outbound Sales Professional: Reuben Bowser RDCS, RT Attending Provider: Jeffry Sue MD Referring Physician: Gerard MARIN; Exam Type: CA echo doppler color flow Study Info Indications I50.9 - Heart failure, unspecified Complete two-dimensional, color flow and Doppler transthoracic echocardiogram is performed. Summary 1. Complete two-dimensional, color flow and Doppler transthoracic echocardiogram is performed. 2. Left ventricular chamber dimension is mildly enlarged. 3. Left ventricular systolic function is moderately reduced, estimated at 35-40%. 4. There is moderately increased left ventricular wall thickness. 5. Left ventricular septal wall motion is abnormal with septal motion related to bundle branch block. 6. The left ventricular diastolic function is abnormal. 7. E/e' 15 is elevated. 8. Global longitudinal strain is abnormal at -8.7%. 9. Right ventricular systolic function is reduced based on TAPSE 1.2 cm. 10. Left atrial chamber dimension is moderately enlarged. 11. There is mild mitral valve regurgitation. 12. There is mild tricuspid valve regurgitation. 13. Moderate pulmonary hypertension, estimated pulmonary arterial systolic pressure is 51 mmHg. 14. There is trace pulmonic regurgitation. 15. Dilated inferior vena cava with <50% collapse upon inspiration consistent with significantly elevated right atrial pressure, 15 mmHg. Left Ventricle E/e' 15 is elevated. Global longitudinal strain is abnormal at -8.7%. Left ventricular chamber dimension is mildly enlarged. Left ventricular systolic function is moderately reduced, estimated at 35-40%. There is moderately increased left ventricular wall thickness. Left ventricular septal wall motion is abnormal with septal motion related to bundle branch block. The left ventricular diastolic function is abnormal. Right Ventricle Right ventricular systolic function is reduced based on TAPSE 1.2 cm. Right ventricular chamber dimension is not well visualized. Left Atria Left atrial chamber dimension is moderately enlarged. Right Atria Right atrial chamber dimension is normal. Aortic Valve The aortic valve is trileaflet. There is no aortic valve stenosis. There is no aortic valve regurgitation. Pulmonic Valve There is trace pulmonic regurgitation. Mitral Valve There is no mitral valve stenosis. There is mild mitral valve regurgitation. Tricuspid Valve There is mild tricuspid valve regurgitation. Moderate pulmonary hypertension, estimated pulmonary arterial systolic pressure is 51 mmHg. Pericardium/Pleural There is no pericardial effusion. Inferior Vena Cava Dilated inferior vena cava with <50% collapse upon inspiration consistent with significantly elevated right atrial pressure, 15 mmHg. Aorta The aortic root size at the sinus of Valsalva is normal. Left Ventricular Outflow Tract Name Value Normal LVOT 2D LVOT Diameter
[2020-06-06 05:41] VITALS: BP 151/68; PULSE 68; RESP 20; TEMP 36.5; O2SAT 98
[2020-06-06] MEDS: HEPARIN SODIUM 5,000 UNITS/ML VIAL 5000 UNITS SUB-Q ×3 (06:52→21:40)
[2020-06-06 07:15] LABS: Glucose Point of Care 109 (65-105)
--- NOTE | 2020-06-06 08:16 | PM.PNCARD ---
Progress Note: A&P Assessment and Plan (1) Chronic combined systolic and diastolic heart failure: Code(s): I50.42 - Chronic combined systolic (congestive) and diastolic (congestive) heart failure Status: Acute Assessment and Plan: Restarted Coreg 3.125 mg BID and titrate up every 2 weeks if BP and HR allows. Start Valsartan 80 mg daily. Not starting Entresto since it may have worsened kidney function in the past. Recheck echo to see if Life Vest is necessary to prevent sudden cardiac arrest, if patient may be interested. (2) CKD (chronic kidney disease) stage 3, GFR 30-59 ml/min: Code(s): N18.3 - Chronic kidney disease, stage 3 (moderate) Status: Chronic (3) CAD (coronary artery disease), autologous vein bypass graft: Code(s): I25.810 - Atherosclerosis of coronary artery bypass graft(s) without angina pectoris Status: Acute (4) Elevated lipids: Code(s): E78.5 - Hyperlipidemia, unspecified Status: Acute (5) Anemia: Code(s): D64.9 - Anemia, unspecified Status: Acute (6) Hypertension: Code(s): I10 - Essential (primary) hypertension Status: Acute Assessment and Plan: High. On Amlodipine. Started Coreg and Valsartan. Subjective Date/time seen: 06/06/20 08:16 In rehab unit, doing well. Denies chest pain or sob. Exam Const: General: comfortable and no acute distress Neck: Neck: no JVD Carotids: no bruits Resp: Auscultation: clear to auscultation bilaterally, no crackles, no rales, no rhonchi and no wheezes Cardio: Rate: regular rate Rhythm: regular rhythm Heart sounds: no murmurs GI: Inspection: non-distended Neuro: Speech: normal speech Extrem: Right lower extremity: edema (Mild edema of RLE) Other: Below knee amputation. Objective Data Vital Signs Vital Signs: Vital Signs - 24 hr 06/05/20 14:00 06/05/20 20:00 06/05/20 20:56 Temperature 98.2 F 97.8 F Pulse Rate 70 72 Respiratory Rate 20 18 Blood Pressure 139/66 150/73 H Pulse Oximetry 99 99 99 06/06/20 05:41 Temperature 97.7 F Pulse Rate 68 Respiratory Rate 20 Blood Pressure 151/68 H Pulse Oximetry 98 Intake/Output Intake/Output: Intake & Output 06/03/20 06/04/20 06/05/20 06/06/20 23:59 23:59 23:59 23:59 Intake Total 720 720 720 Balance 720 720 720 Meds/Results Medications: Active Medications Generic Name Dose Route Start Last Admin Trade Name Freq PRN Reason Stop Dose Admin Acetaminophen 1,000 mg 06/01/20 20:59 06/02/20 10:19 Tylenol Tablet PO 1,000 mg Q6H PRN Administration Pain (Scale Score 1-3) Hydrocodone Bitart/Acetaminophen 1 tab 06/02/20 11:18 06/05/20 09:12 [place] 5-325 Mg PO 1 tab Q6H PRN Administration Pain Rated 4-6 Hydrocodone Bitart/Acetaminophen 2 tab 06/02/20 11:18 06/04/20 11:46 [place] 5-325 Mg PO 2 tab Q6H PRN Administration Pain Rated 7-10 Amlodipine Besylate 5 mg 06/02/20 09:00 06/05/20 08:20 Norvasc PO 5 mg DAILY SALVADOR Administration Aspirin 81 mg 06/02/20 09:00 06/05/20 08:20 Aspirin Ec PO 81 mg DAILY SALVADOR Administration Atorvastatin Calcium 40 mg 06/01/20 21:40 06/05/20 20:55 Lipitor PO 40 mg HS SALVADOR Administration Carvedilol 3.125 mg 06/05/20 21:00 06/05/20 20:56 Coreg PO 3.125 mg Q12HR SALVADOR Administration Cholestyramine Resin 4 gm 06/02/20 11:00 06/05/20 21:27 Questran Light Packet PO 4 gm 1100,1900 SALVADOR Administration Dextrose 12.5 gm 06/01/20 20:58 Dextrose 50% Syringe IV PUSH PRN PRN Hypoglycemia Protocol Fenofibrate 48 mg 06/02/20 09:00 06/05/20 08:20 Tricor PO 07/03/20 09:01 48 mg DAILY SALVADOR Administration Ferrous Sulfate 324 mg 06/02/20 08:00 06/05/20 08:20 Ferrous Sulfate PO 324 mg DAILY@0800 SALVADOR Administration Fish Oil 1 gm 06/02/20 12:00 06/05/20 12:00 Lovaza PO 1 gm DAILY@1200 SALVADOR Administration Furosemide 40 mg 10/01/20 09:00
[2020-06-06] MEDS: VALSARTAN 80 MG TABLET PO (08:34)
[2020-06-06] MEDS: SENNA/DOCUSATE SODIUM TABLET 1 TAB PO (08:34)
[2020-06-06] MEDS: amLODIPine BESYLATE 5 MG TABLET PO (08:34)
[2020-06-06 08:35] VITALS: PULSE 68
[2020-06-06] MEDS: FUROSEMIDE 40 MG TABLET PO ×2 (08:35→16:45)
[2020-06-06] MEDS: GABAPENTIN 300 MG CAPSULE PO ×3 (08:35→16:46)
[2020-06-06] MEDS: carvediloL 3.125 MG TABLET PO ×2 (08:35→20:42)
[2020-06-06] MEDS: ASPIRIN 81 MG ENTERIC TABLET PO (08:35)
[2020-06-06] MEDS: FENOFIBRATE,MICRONIZED 48 MG TABLET PO (08:35)
[2020-06-06] MEDS: FERROUS SULFATE 324 MG TABLET PO (08:35)
--- NOTE | 2020-06-06 10:02 | WPDNEURORHBP ---
Subjective Date/time seen: 06/06/20 10:02 55 years old admitted to the rehab floor for the diagnosis of status post left BKA in addition to the comorbid conditions of 1. Coronary artery disease 2. Congestive heart failure 3. Status post CABG in 2016 4. Poorly controlled type 2 diabetes mellitus 5. Hyperlipidemia 6. Atrial fibrillation with flutter. Recent CBC with WBC 7.9 and hemoglobin 8.0. BUN 70 with a creatinine of 2.0 Review of Systems Review of Systems: All systems reviewed & are unremarkable except as noted in HPI and below Exam Narrative: Exam Narrative: examination reveals him to be awake alert cooperative in no obvious acute distress movements of neck not restricted no JVD heart regular no murmur lungs clear with no rhonchi or crepitations abdomen is soft with no organomegaly and neurological examination consistent with muscle atrophy secondary to neuropathy with absent deep tendon reflexes sensory deficit more so distally and no signs of cerebellar dysfunction Objective Data Vital Signs Vital Signs: Vital Signs - 24 hr 06/05/20 14:00 06/05/20 20:00 06/05/20 20:56 Temperature 36.8 C 36.6 C Pulse Rate 70 72 Respiratory Rate 20 18 Blood Pressure 139/66 150/73 H Pulse Oximetry 99 99 99 06/06/20 05:41 06/06/20 08:35 Temperature 36.5 C Pulse Rate 68 68 Respiratory Rate 20 Blood Pressure 151/68 H Pulse Oximetry 98 Intake/Output Intake/Output: Intake & Output 06/03/20 06/04/20 06/05/20 06/06/20 23:59 23:59 23:59 23:59 Intake Total 720 720 720 480 Balance 720 720 720 480 Meds/Results Medications: Active Medications Generic Name Dose Route Start Last Admin Trade Name Freq PRN Reason Stop Dose Admin Acetaminophen 1,000 mg 06/01/20 20:59 06/02/20 10:19 Tylenol Tablet PO 1,000 mg Q6H PRN Administration Pain (Scale Score 1-3) Hydrocodone Bitart/Acetaminophen 1 tab 06/02/20 11:18 06/05/20 09:12 [place] 5-325 Mg PO 1 tab Q6H PRN Administration Pain Rated 4-6 Hydrocodone Bitart/Acetaminophen 2 tab 06/02/20 11:18 06/04/20 11:46 [place] 5-325 Mg PO 2 tab Q6H PRN Administration Pain Rated 7-10 Amlodipine Besylate 5 mg 06/02/20 09:00 06/06/20 08:34 Norvasc PO 5 mg DAILY SALVADOR Administration Aspirin 81 mg 06/02/20 09:00 06/06/20 08:35 Aspirin Ec PO 81 mg DAILY SALVADOR Administration Atorvastatin Calcium 40 mg 06/01/20 21:40 06/05/20 20:55 Lipitor PO 40 mg HS SALVADOR Administration Carvedilol 3.125 mg 06/05/20 21:00 06/06/20 08:35 Coreg PO 3.125 mg Q12HR SALVADOR Administration Cholestyramine Resin 4 gm 06/02/20 11:00 06/05/20 21:27 Questran Light Packet PO 4 gm 1100,1900 SALVADOR Administration Dextrose 12.5 gm 06/01/20 20:58 Dextrose 50% Syringe IV PUSH PRN PRN Hypoglycemia Protocol Fenofibrate 48 mg 06/02/20 09:00 06/06/20 08:35 Tricor PO 07/03/20 09:01 48 mg DAILY SALVADOR Administration Ferrous Sulfate 324 mg 06/02/20 08:00 06/06/20 08:35 Ferrous Sulfate PO 324 mg DAILY@0800 SALVADOR Administration Fish Oil 1 gm 06/02/20 12:00 06/05/20 12:00 Lovaza PO 1 gm DAILY@1200 SALVADOR Administration Furosemide 40 mg 06/02/20 09:00 06/06/20 08:35 Lasix Tablet PO 40 mg BID SALVADOR Administration Gabapentin 300 mg 06/02/20 09:00 06/06/20 08:35 Neurontin PO 300 mg TID SALVADOR Administration Glucagon 1 mg 06/01/20 20:58 Glucagon For Inj IM PRN PRN Hypoglycemia Protocol Glucose 15 gm 06/01/20 20:58 Glutose 15 PO PRN PRN Hypoglycemia Protocol Heparin Sodium (Porcine) 5,000 units 06/02/20 14:00 06/06/20 06:52 Heparin Sodium SUB-Q 5,000 units Q8HR SALVADOR Administration Dextrose 1,000 mls @ 100 mls/hr 06/01/20 20:58 Dextrose 5% 1,000 Ml IVPB PRN PRN Hypoglycemia Protocol Insulin Glargine 8 units 06/01/20 21:35 06/05/20 20:57 Lantus SUB-Q 8 units HS SALVADOR Administration Loperamide
--- NOTE | 2020-06-06 10:56 | PCPTNOTE ---
Kobi Latoya Gaetano was evaluated for a slide board on 06/06/2020 by this physical therapist assistant sales manager. The slide board will resolve patient's mobility limitations and will be used for ADL's within the home. The patient can safely use the slide board. ?The slide board will resolve the patient?s mobility deficits, including impired balance, decreased strength and endurance.
[2020-06-06 11:48] LABS: Glucose Point of Care 120 (65-105)
[2020-06-06] MEDS: MULTIVITAMINS THERAPEUTIC TAB (*BKC) 1 TABLET PO (12:02)
[2020-06-06] MEDS: CHOLECALCIFEROL 1,000 UNITS TABLET 2000 UNITS PO (12:02)
[2020-06-06] MEDS: CHOLESTYRAMINE LIGHT 4 GM POWD.PACK PO ×2 (12:02→19:36)
[2020-06-06] MEDS: OMEGA 3 POLYUNSAT FATTY ACIDS 1 GM CAP PO (12:02)
--- NOTE | 2020-06-06 13:07 | PCPTNOTE ---
Valentina Khanna PT completed an inpatient rehab wheelchair evaluation on Kobi Salter on 06/06/2020. The patient is unable to safely and independently ambulate household distances due to their current impairments. Their diagnosis is L. BKA and their impairments include decreased strength, decreased endurance, decreased range of motion, decreased balance, lower extremity weakness, and ataxia. Kobi's weight bearing status is nonweight-bearing as on the residual L LE and as tolerated on the right lower leg. The patient demonstrates significant functional mobility limitations that impair their ability to participate in mobility-related activities of daily living (MRADLs), including toileting, feeding, dressing, grooming, and bathing in the customary locations in the home. These limitations cannot be sufficiently resolved by the use of an appropriately fitted cane or walker. It is recommended that the patient utilize a wheelchair for functional mobility within the home in order to facilitate optimal safety, independence and participation in all MRADL's and adequately access their home environment on a regular basis. The patient's home provides adequate access between rooms, maneuvering space, and surfaces to accommodate the recommended wheelchair. The use of a wheelchair for functional mobility is strongly recommended and the patient is receptive to using the wheelchair. The use of this wheelchair will significantly improve the patient's ability to participate in MRADLS and the patient will use it on a regular basis in the home. This will facilitate optimal safety, independence, and participation. The patient has demonstrated sufficient physical and mental capabilities needed to safely propel a manual wheelchair that is provided in the home during a typical day. Recommended Wheelchair Frame: Heavy Duty (weight, 263 pounds) Recommended Wheelchair Size: 24 x24 Recommended Wheelchair Cushion: standard Wheelchair Leg Recommendations: right swing away, elevating, left residual limb rest Swing away arm rests -A heavy duty wheelchair is recommended because the patient weighs more than 250 pounds. -Anti-tippers are recommended due to patient demonstrating increased risk for falls. They would benefit from anti-tippers with added safety and stabilization. __Valentina Khanna PT ____10/5/20 Evaluating Therapist Date I agree with and certify that the above recommendation is medically necessary. Referring Physician Date
[2020-06-06 14:00] VITALS: BP 136/67; PULSE 67; RESP 20; TEMP 36.2; O2SAT 98
[2020-06-06 17:05] LABS: Glucose Point of Care 152 (65-105)
[2020-06-06 20:42] VITALS: PULSE 67
[2020-06-06] MEDS: ATORVASTATIN 40 MG TABLET PO (20:42)
[2020-06-06] MEDS: INSULIN GLARGINE (*BKC) 100 UNITS/ML 8 UNITS SUB-Q (20:42)
[2020-06-06 20:55] LABS: Glucose Point of Care 163 (65-105)
[2020-06-06 22:00] VITALS: BP 150/61; PULSE 69; RESP 16; TEMP 36.2; O2SAT 97
[2020-06-07 06:00] VITALS: BP 149/66; PULSE 66; RESP 19; TEMP 36.5; O2SAT 98
[2020-06-07] MEDS: HEPARIN SODIUM 5,000 UNITS/ML VIAL 5000 UNITS SUB-Q ×3 (06:38→21:28)
[2020-06-07 06:41] LABS: Glucose Point of Care 108 (65-105)
[2020-06-07] MEDS: FERROUS SULFATE 324 MG TABLET PO (09:38)
[2020-06-07 09:39] VITALS: PULSE 66
[2020-06-07] MEDS: carvediloL 3.125 MG TABLET PO (09:39)
[2020-06-07] MEDS: amLODIPine BESYLATE 5 MG TABLET PO (09:39)
[2020-06-07] MEDS: FENOFIBRATE,MICRONIZED 48 MG TABLET PO (09:39)
[2020-06-07] MEDS: ASPIRIN 81 MG ENTERIC TABLET PO (09:39)
[2020-06-07] MEDS: FUROSEMIDE 40 MG TABLET PO ×2 (09:40→17:02)
[2020-06-07] MEDS: GABAPENTIN 300 MG CAPSULE PO ×3 (09:40→17:02)
[2020-06-07] MEDS: VALSARTAN 80 MG TABLET PO (09:40)
--- NOTE | 2020-06-07 10:45 | P.PNNP_ITS ---
Progress Note: A&P Assessment and Plan (1) Chronic kidney disease, stage IV (severe): Code(s): N18.4 - Chronic kidney disease, stage 4 (severe) Status: Acute Assessment and Plan: * baseline creatinine runs ~ 2.1 - 2.6mg/dl * multifactorial etiology: - depressed ejection fraction/cardiomyopathy (making him prone to prerenal azotemia) - necessity of diuretics to maintain volume status - diabetes - hypertesnion - peripheral vascular disease * continue supportive therapy (2) Status post below-knee amputation of left lower extremity: Code(s): Z89.512 - Acquired absence of left leg below knee Status: Acute Assessment and Plan: * due to non-salvageable left foot/leg gangrene * local wound care * continue aggressive PT/OT/rehab (3) Chronic combined systolic and diastolic heart failure: Code(s): I50.42 - Chronic combined systolic (congestive) and diastolic (congestive) heart failure Status: Acute Assessment and Plan: * appears compensated at this time * follows with Dr. Gee as an outpatient - will consult for further recommendations * He has some swelling. On lasix bid. He is on amlodipine. * Will increase the dose of carvedilol a little bit. * Consider an KATYA-inhibitor and removing amlodipine. Will reassess in a couple of days. (4) Hypertension: Code(s): I10 - Essential (primary) hypertension Status: Acute Assessment and Plan: * better control but still suboptimal * follow trend of hemodynamics * suspect may need further medication adjustment * inc carvedilol (5) Anemia: Code(s): D64.9 - Anemia, unspecified Status: Acute Assessment and Plan: * likely due to recent operative intervention and CKD * follow H/H * on oral iron * Will start EPO (6) Diabetes mellitus with multiple complications: Code(s): E11.8 - Type 2 diabetes mellitus with unspecified complications Status: Acute Assessment and Plan: * follow accuchecks * on Lantus Will continue to follow. Subjective Date/time seen: 06/07/20 10:45 Interval history: Patient feels okay. Getting physical therapy. He has a little bit of swelling. Exam Narrative: Exam Narrative: General: WD/WN male in NAD Heart: normal S1 and S2; no rub Lungs: clear anteriorly Abdomen: soft, nontender, nondistended, positive bowel sounds Extremities: no cyanosis or clubbing; s/p left BKA. One to2+ edema in the right lower extremity. Skin: warm and dry no rash Objective Data Vital Signs Vital Signs: Vital Signs - 24 hr 06/06/20 14:00 06/06/20 20:42 06/06/20 22:00 Temperature 36.2 C L 36.2 C L Pulse Rate 67 67 69 Respiratory Rate 20 16 Blood Pressure 136/67 150/61 H Pulse Oximetry 98 97 06/07/20 06:00 06/07/20 09:39 Temperature 36.5 C Pulse Rate 66 66 Respiratory Rate 19 Blood Pressure 149/66 H Pulse Oximetry 98 Intake/Output Intake/Output: Intake & Output 06/04/20 06/05/20 06/06/20 06/07/20 23:59 23:59 23:59 23:59 Intake Total 889 542 6773 480 Balance 656 964 5815 480 Meds/Results Medications: Active Medications Generic Name Dose Route Start Last Admin
--- NOTE | 2020-06-07 10:45 | PM.PNNEP ---
Progress Note: A&P Assessment and Plan (1) Chronic kidney disease, stage IV (severe): Code(s): N18.4 - Chronic kidney disease, stage 4 (severe) Status: Acute Assessment and Plan: baseline creatinine runs ~ 2.1 - 2.6mg/dl multifactorial etiology: - depressed ejection fraction/cardiomyopathy (making him prone to prerenal azotemia) - necessity of diuretics to maintain volume status - diabetes - hypertesnion - peripheral vascular disease continue supportive therapy (2) Status post below-knee amputation of left lower extremity: Code(s): Z89.512 - Acquired absence of left leg below knee Status: Acute Assessment and Plan: due to non-salvageable left foot/leg gangrene local wound care continue aggressive PT/OT/rehab (3) Chronic combined systolic and diastolic heart failure: Code(s): I50.42 - Chronic combined systolic (congestive) and diastolic (congestive) heart failure Status: Acute Assessment and Plan: appears compensated at this time follows with Dr. Gee as an outpatient - will consult for further recommendations He has some swelling. On lasix bid. He is on amlodipine. Will increase the dose of carvedilol a little bit. Consider an KATYA-inhibitor and removing amlodipine. Will reassess in a couple of days. (4) Hypertension: Code(s): I10 - Essential (primary) hypertension Status: Acute Assessment and Plan: better control but still suboptimal follow trend of hemodynamics suspect may need further medication adjustment inc carvedilol (5) Anemia: Code(s): D64.9 - Anemia, unspecified Status: Acute Assessment and Plan: likely due to recent operative intervention and CKD follow H/H on oral iron Will start EPO (6) Diabetes mellitus with multiple complications: Code(s): E11.8 - Type 2 diabetes mellitus with unspecified complications Status: Acute Assessment and Plan: follow accuchecks on Lantus Will continue to follow. Subjective Date/time seen: 06/07/20 10:45 Interval history: Patient feels okay. Getting physical therapy. He has a little bit of swelling. Exam Narrative: Exam Narrative: General: WD/WN male in NAD Heart: normal S1 and S2; no rub Lungs: clear anteriorly Abdomen: soft, nontender, nondistended, positive bowel sounds Extremities: no cyanosis or clubbing; s/p left BKA. One to2+ edema in the right lower extremity. Skin: warm and dry no rash Objective Data Vital Signs Vital Signs: Vital Signs - 24 hr 06/06/20 14:00 06/06/20 20:42 06/06/20 22:00 Temperature 36.2 C L 36.2 C L Pulse Rate 67 67 69 Respiratory Rate 20 16 Blood Pressure 136/67 150/61 H Pulse Oximetry 98 97 06/07/20 06:00 06/07/20 09:39 Temperature 36.5 C Pulse Rate 66 66 Respiratory Rate 19 Blood Pressure 149/66 H Pulse Oximetry 98 Intake/Output Intake/Output: Intake & Output 06/04/20 06/05/20 06/06/20 06/07/20 23:59 23:59 23:59 23:59 Intake Total 339 401 0938 480 Balance 313 149 4574 480 Meds/Results Medications: Active Medications Generic Name Dose Route Start Last Admin Trade Name Freq PRN Reason Stop Dose Admin Acetaminophen 1,000 mg 06/01/20 20:59 06/02/20 10:19 Tylenol Tablet PO 1,000 mg Q6H PRN Administration Pain (Scale Score 1-3) Hydrocodone Bitart/Acetaminophen 1 tab 06/02/20 11:18 06/05/20 09:12 [place] 5-325 Mg PO 1 tab Q6H PRN Administration Pain Rated 4-6 Hydrocodone Bitart/Acetaminophen 2 tab 06/02/20 11:18 06/04/20 11:46 [place] 5-325 Mg PO 2 tab Q6H PRN Administration Pain Rated 7-10 Amlodipine Besylate 5 mg 06/02/20 09:00 06/07/20 09:39 Norvasc PO 5 mg DAILY [facility] Administration Aspirin 81 mg 06/02/20 09:00 06/07/20 09:39 Aspirin Ec PO 81 mg DAILY [facility] Administration Atorvastatin Calcium 40 mg 06/01/20 21:40 06/06
[2020-06-07] MEDS: OMEGA 3 POLYUNSAT FATTY ACIDS 1 GM CAP PO (12:11)
[2020-06-07] MEDS: MULTIVITAMINS THERAPEUTIC TAB (*BKC) 1 TABLET PO (12:11)
[2020-06-07] MEDS: CHOLESTYRAMINE LIGHT 4 GM POWD.PACK PO ×2 (12:11→21:26)
[2020-06-07] MEDS: CHOLECALCIFEROL 1,000 UNITS TABLET 2000 UNITS PO (12:11)
[2020-06-07 12:16] LABS: Glucose Point of Care 130 (65-105)
[2020-06-07] MEDS: EPOETIN ALFA-EPBX 10,000 UNITS/ML VIAL 10000 UNITS SUB-Q (12:20)
--- NOTE | 2020-06-07 12:32 | WPDNEURORHBP ---
Subjective Date/time seen: 06/07/20 12:32 Interval history: This 48 centimeter old diabetic with diabetic neuropathies here after having had left BKA. 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 she may not be able to see her soon in any event we discussed the telephone conference earlier this morning and we will abide by her wish for asking GI to see him and I will order some lab work including CK aldolase an TRICIA The patient denies any headache nausea vomiting chest pain or shortness of breath Review of Systems Review of Systems: All systems reviewed & are unremarkable except as noted in HPI and below Exam Const: General: comfortable and no acute distress HENMT: General nose exam: Normal nares present Mouth: Yes moist mucous membranes Eyes: General: appearance normal, both eyes and all related structures Neck: Neck: supple and no JVD Resp: Effort & Inspection: normal respiratory effort Auscultation: clear to auscultation bilaterally Cardio: Rate: regular rate Rhythm: regular rhythm GI: GI Palp: Yes Soft to palpation Auscultation: normal bowel sounds Skin: General skin exam: normal color and no rashes or lesions noted Neuro: Other: patient is awake alert well oriented has normal speech and language functions normal cranial examination generalized weakness of both upper lower extremities with loss of muscle bulk in the hands and the feet and significant evidence of peripheral neuropathy it is difficult for him to stand up on his right leg which is weak and of course he does have a left [id number] amputation Extrem: Other: left [id number] amputation with kiwi stump Psych: Mental Status: mental status grossly normal Objective Data Vital Signs Vital Signs: Vital Signs - 24 hr 06/06/20 14:00 06/06/20 20:42 06/06/20 22:00 Temperature 36.2 C L 36.2 C L Pulse Rate 67 67 69 Respiratory Rate 20 16 Blood Pressure 136/67 150/61 H Pulse Oximetry 98 97 06/07/20 06:00 06/07/20 09:39 Temperature 36.5 C Pulse Rate 66 66 Respiratory Rate 19 Blood Pressure 149/66 H Pulse Oximetry 98 Intake/Output Intake/Output: Intake & Output 06/04/20 06/05/20 06/06/20 06/07/20 23:59 23:59 23:59 23:59 Intake Total 618 048 5430 480 Balance 969 609 5865 480 Meds/Results Medications: Active Medications Generic Name Dose Route Start Last Admin Trade Name Freq PRN Reason Stop Dose Admin Acetaminophen 1,000 mg 06/01/20 20:59 06/02/20 10:19 Tylenol Tablet PO 1,000 mg Q6H PRN Administration Pain (Scale Score 1-3) Hydrocodone Bitart/Acetaminophen 1 tab 06/02/20 11:18 06/05/20 09:12 [place] 5-325 Mg PO 1 tab Q6H PRN Administration Pain Rated 4-6 Hydrocodone Bitart/Acetaminophen 2 tab 06/02/20 11:18 06/04/20 11:46 [place] 5-325 Mg PO 2 tab Q6H PRN Administration Pain Rated 7-10 Amlodipine Besylate 5 mg 06/02/20 09:00 06/07/20 09:39 Norvasc PO 5 mg DAILY [facility] Administration Aspirin 81 mg 06/02/20 09:00 06/07/20 09:39 Aspirin Ec PO 81 mg DAILY [facility] Administration Atorvastatin Calcium 40 mg 06/01/20 21:40 06/06/20 20:42 Lipitor PO 40 mg HS [facility] Administration Carvedilol 6.25 mg 06/07/20 21:00 Coreg PO Q12HR [facility] Cholestyramine Resin 4 gm 06/02/20 11:00 06/07/20 12:11 Questran Light Packet PO 4 gm 1100,1900 [facility] Administration Dextrose 12.5 gm 06/01/20 20:58 Dextrose 50% Syringe IV PUSH PRN PRN Hypoglycemia Protocol Epoetin Bradford-epbx 10,000 units 06/07/20 12:00 06/07/20 12:20 Retacrit SUB-Q 10,000 units TuThSa@1200 [facility] Administration Fenofibrate 48 mg 06/02/20 09:00 06/07/20 09:39 Tricor PO 07/03/20 09:01 48 mg DAILY [facility] Administration Ferrous Sulfate 324 mg 06/02/20 08:00 06/07/20 09:
--- NOTE | 2020-06-07 12:49 | WPDGICN ---
Assessment and Plan Assessment and plan (1) Status post below-knee amputation of left lower extremity: Code(s): Z89.512 - Acquired absence of left leg below knee Status: Acute (2) Diabetes mellitus with multiple complications: Code(s): E11.8 - Type 2 diabetes mellitus with unspecified complications Status: Acute (3) Chronic combined systolic and diastolic heart failure: Code(s): I50.42 - Chronic combined systolic (congestive) and diastolic (congestive) heart failure Status: Acute (4) Chronic kidney disease, stage IV (severe): Code(s): N18.4 - Chronic kidney disease, stage 4 (severe) Status: Acute (5) Chronic diarrhea: Code(s): K52.9 - Noninfective gastroenteritis and colitis, unspecified Status: Chronic Assessment and Plan: Patient has diarrhea dating back fiber 6 months. It was profuse at times. Appears to be improving clinically over the last 2 weeks. It is possible is diarrhea was related to infection that is now resolved cannot exclude relation to medications such as antibiotics. Currently he is on a medication called Questran which may help his diarrhea this will be continued. Because of anticipation for colonoscopy in the long duration of his diarrhea colonoscopy will be anticipated prior to discharge. Hopefully this can be accomplished on with preparation Saturday afternoon. We will follow with you per. Should diarrhea recur initial stool cultures will be obtained at that time. Because of his severe diabetes with diabetic neuropathy diabetic diarrhea is a strong consideration is an etiology. (6) CHF (congestive heart failure): Code(s): I50.9 - Heart failure, unspecified Status: Acute (7) CAD (coronary artery disease), autologous vein bypass graft: Code(s): I25.810 - Atherosclerosis of coronary artery bypass graft(s) without angina pectoris Status: Acute GI Consult Note Consult date/time: 06/07/20 12:49 HPI: Kobi Salter is a 55 year old male seen in evaluation at the request of Dr Sue.Patient reports diarrhea for the last 5-6 months. At its worst he would have 10-15 bowel movements a day this lasted for 2-3 weeks. He saw a barrel and receiver aligner at a different institution testing failed to contain firm the diagnosis colonoscopy was anticipated. Patient has multiple comorbid diseases including atherosclerotic heart disease. History of coronary artery bypass grafting diabetes mellitus. Atrial fibrillation. He subsequently developed a left foot infection requiring a left [id number] amputation. Currently on rehab service for rehabilitation. He now request proceeding with a colonoscopy previously suggested. Patient denies any blood in his stools. He has no fever. He states the diarrhea actually may have been improving since his foot was resected he also states his kidney function breathing in general overall status has improved as well. Currently he reports intermittent loose stools. No bleeding is noted. He denies abdominal pain. It is uncertain what medications he was on during his recent hospital stay. Review of Systems Review of Systems: All systems reviewed & are unremarkable except as noted in HPI and below [facility] Past Medical History Medical History (Updated 06/05/20 @ 08:50 by Jone Bay MD) 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 heart failure With echocardiogram January 2020 demonstrating moderate left ventricular enlargement, EF 25-30%, abnormal diastolic function, E/e' mildly elevated, moderate right ventricular systolic dysfunction, severe left atrial enlargement, mild pulmonary hypertension with RVSP of 42 Anemia of chronic disease Anxiety and depression Arthritis CAD (coronary artery disease) CABG x4 2017, Lexiscan stress test January 2020 moderate sized mild partially reversible perfusion defect involving inferior wall consistent with mixed ischemia an
[2020-06-07 14:00] VITALS: BP 135/59; PULSE 68; RESP 22; TEMP 36.1; O2SAT 98
[2020-06-07 17:14] LABS: Glucose Point of Care 129 (65-105)
[2020-06-07 20:00] VITALS: PULSE 73; RESP 12; O2SAT 95
[2020-06-07] MEDS: INSULIN GLARGINE (*BKC) 100 UNITS/ML 8 UNITS SUB-Q (20:41)
[2020-06-07 21:26] VITALS: BP 159/87; PULSE 69; RESP 12; TEMP 36.8; O2SAT 95
[2020-06-07] MEDS: ATORVASTATIN 40 MG TABLET PO (21:26)
[2020-06-07 21:27] VITALS: PULSE 73
[2020-06-07] MEDS: carvediloL 6.25 MG TABLET PO (21:27)
[2020-06-07 21:35] LABS: Glucose Point of Care 157 (65-105)
[2020-06-08] VITALS (7 sets, daily range): BP systolic 125–153; BP diastolic 50–89; PULSE 63–70; RESP 14–21; TEMP 36.2–37.2; O2SAT 95–100
[2020-06-08 05:15] LABS: Hematocrit 24.8 % (42.0-52.0); Hemoglobin 7.6 g/dL (14.0-18.0); Mean Corpuscular HGB Conc 30.6 g/dl (32-36); Mean Corpuscular Hemoglobin 27.7 pg (26-34); Mean Corpuscular Volume 90.5 fl (80-100); Mean Platelet Volume 11.3 fl (7.4-10.4); Platelet Count Result 276 k/mm3 (150-375); Red Blood Count 2.74 M/mm3 (4.6-6.20); Red Cell Distribution Width 19.5 % (11.5-14.5); White Blood Count 8.5 K/mm3 (4.5-10.0)
[2020-06-08] MEDS: HEPARIN SODIUM 5,000 UNITS/ML VIAL 5000 UNITS SUB-Q (05:35)
[2020-06-08 05:39] LABS: Albumin Level 2.6 g/dL (3.5-5.1); Anion Gap 6 mmol/L (8-16); Blood Urea Nitrogen 90 mg/dL (9-20); Calcium 8.3 mg/dL (8.4-10.2); Carbon Dioxide 22 mmol/L (22-30); Chloride 112 mmol/L (98-107); Estimated CRCL calculation 47 ml/min; Estimated Glomerular Filt Rate 33; Glucose 120 mg/dL (75-110); Phosphorus 4.3 mg/dL (2.5-4.5); Potassium 5.2 mmol/L (3.4-5.0); Sodium 140 mmol/L (137-145)
[2020-06-08 06:39] LABS: Glucose Point of Care 121 (65-105)
--- NOTE | 2020-06-08 08:04 | PM.PNCARD ---
Progress Note: A&P Assessment and Plan (1) Chronic combined systolic and diastolic heart failure: Code(s): I50.42 - Chronic combined systolic (congestive) and diastolic (congestive) heart failure Status: Acute Assessment and Plan: On Coreg. Intolerant of Entresto due to worsening kidney function, Valsartan due to hyperkalemia. Doubt he would tolerate babak inhibitor for same reason as Valsartan. Echo shows moderate LV systolic dysfunction with EF 35-40%. No longer needs Life Vest or ICD to prevent sudden cardiac arrest. (2) CKD (chronic kidney disease) stage 3, GFR 30-59 ml/min: Code(s): N18.3 - Chronic kidney disease, stage 3 (moderate) Status: Chronic (3) CAD (coronary artery disease), autologous vein bypass graft: Code(s): I25.810 - Atherosclerosis of coronary artery bypass graft(s) without angina pectoris Status: Acute (4) Elevated lipids: Code(s): E78.5 - Hyperlipidemia, unspecified Status: Acute (5) Anemia: Code(s): D64.9 - Anemia, unspecified Status: Acute (6) Hypertension: Code(s): I10 - Essential (primary) hypertension Status: Acute Assessment and Plan: Improved. On Amlodipine. Increase Coreg 12.5 mg BID. Discontinue Valsartan as potassium increased on it. He did not tolerate Entresto due to hyperkalemia and worsening kidney function. Will sign off. Please call me with any questions or concerns. F/U with me in next 1-2 months. Subjective Date/time seen: 06/08/20 08:04 Denies chest pain or sob. Exam Const: General: comfortable and no acute distress Neck: Neck: no JVD Carotids: no bruits Resp: Auscultation: clear to auscultation bilaterally, no crackles, no rales, no rhonchi and no wheezes Cardio: Rate: regular rate Rhythm: regular rhythm Heart sounds: no murmurs GI: Inspection: non-distended Neuro: Speech: normal speech Extrem: Right lower extremity: edema (Trace edema of RLE) Other: Below knee amputation. Objective Data Vital Signs Vital Signs: Vital Signs - 24 hr 06/07/20 09:39 06/07/20 14:00 06/07/20 20:00 Temperature 96.9 F L Pulse Rate 66 68 73 Respiratory Rate 22 H 12 Blood Pressure 135/59 L Pulse Oximetry 98 95 06/07/20 21:26 06/07/20 21:27 06/08/20 05:13 Temperature 98.2 F 98.9 F Pulse Rate 69 73 70 Respiratory Rate 12 14 Blood Pressure 159/87 H 153/89 H Pulse Oximetry 95 95 Intake/Output Intake/Output: Intake & Output 06/05/20 06/06/20 06/07/20 06/08/20 23:59 23:59 23:59 23:59 Intake Total 720 1680 1680 Balance 720 1680 1680 Meds/Results Medications: Active Medications Generic Name Dose Route Start Last Admin Trade Name Freq PRN Reason Stop Dose Admin Acetaminophen 1,000 mg 06/01/20 20:59 06/02/20 10:19 Tylenol Tablet PO 1,000 mg Q6H PRN Administration Pain (Scale Score 1-3) Hydrocodone Bitart/Acetaminophen 1 tab 06/02/20 11:18 06/05/20 09:12 [place] 5-325 Mg PO 1 tab Q6H PRN Administration Pain Rated 4-6 Hydrocodone Bitart/Acetaminophen 2 tab 06/02/20 11:18 06/04/20 11:46 [place] 5-325 Mg PO 2 tab Q6H PRN Administration Pain Rated 7-10 Amlodipine Besylate 5 mg 06/02/20 09:00 06/07/20 09:39 Norvasc PO 5 mg DAILY [facility] Administration Aspirin 81 mg 06/02/20 09:00 06/07/20 09:39 Aspirin Ec PO 81 mg DAILY [facility] Administration Atorvastatin Calcium 40 mg 06/01/20 21:40 06/07/20 21:26 Lipitor PO 40 mg HS [facility] Administration Carvedilol 12.5 mg 06/08/20 09:00 Coreg PO Q12HR [facility] Cholestyramine Resin 4 gm 06/02/20 11:00 06/07/20 21:26 Questran Light Packet PO 4 gm 1100,1900 [facility] Administration Dextrose 12.5 gm 06/01/20 20:58 Dextrose 50% Syringe IV PUSH PRN PRN Hypoglycemia Protocol Epoetin Bradford-epbx 10,000 units 06/07/20 12:00 06/07/20 12:20 Retacrit SUB-Q 10,000 units TuThSa@1200 [facility] Administration Fenofibrate 48 mg 06/02
[2020-06-08] MEDS: FERROUS SULFATE 324 MG TABLET PO (08:33)
[2020-06-08] MEDS: ASPIRIN 81 MG ENTERIC TABLET PO (08:33)
[2020-06-08] MEDS: amLODIPine BESYLATE 5 MG TABLET PO (08:33)
[2020-06-08] MEDS: FUROSEMIDE 40 MG TABLET PO ×2 (08:34→17:54)
[2020-06-08] MEDS: GABAPENTIN 300 MG CAPSULE PO ×3 (08:34→17:54)
[2020-06-08] MEDS: FENOFIBRATE,MICRONIZED 48 MG TABLET PO (08:34)
--- NOTE | 2020-06-08 09:25 | WPDGIPROGNO ---
Progress Note: A&P Additional Plan Patient appears comfortable this morning. Tolerating regular diet. He states diarrhea has not been very bad the last several days. Physical exam reveals patient to be alert. Vital signs stable. Lungs are clear. Heart without murmur. Abdomen is soft nontender with no organomegaly. Left BKA noted. Labs reveal hemoglobin 7.6, hematocrit 24.8, MCV 90. Impression 1. Diarrhea. Appears to have been chronic over last 4-5 months. Improved now compared to 1 month ago. Plan is to proceed with colonoscopy tomorrow preparation today. 2. Anemia. Likely related to kidney disease. Will assess this at time of endoscopy as well. 3. Left BKA. Rehab services continue. Subjective Date/time seen: 06/08/20 09:25 Objective Data Vital Signs Vital Signs: Vital Signs - 24 hr 06/07/20 09:39 06/07/20 14:00 06/07/20 20:00 Temperature 96.9 F L Pulse Rate 66 68 73 Respiratory Rate 22 H 12 Blood Pressure 135/59 L Pulse Oximetry 98 95 06/07/20 21:26 06/07/20 21:27 06/08/20 05:13 Temperature 98.2 F 98.9 F Pulse Rate 69 73 70 Respiratory Rate 12 14 Blood Pressure 159/87 H 153/89 H Pulse Oximetry 95 95 Intake/Output Intake/Output: Intake & Output 06/05/20 06/06/20 06/07/20 06/08/20 23:59 23:59 23:59 23:59 Intake Total 720 1680 1680 Balance 720 1680 1680 Meds/Results Medications: Active Medications Generic Name Dose Route Start Last Admin Trade Name Freq PRN Reason Stop Dose Admin Acetaminophen 1,000 mg 06/01/20 20:59 06/02/20 10:19 Tylenol Tablet PO 1,000 mg Q6H PRN Administration Pain (Scale Score 1-3) Hydrocodone Bitart/Acetaminophen 1 tab 06/02/20 11:18 06/05/20 09:12 [place] 5-325 Mg PO 1 tab Q6H PRN Administration Pain Rated 4-6 Hydrocodone Bitart/Acetaminophen 2 tab 06/02/20 11:18 06/04/20 11:46 [place] 5-325 Mg PO 2 tab Q6H PRN Administration Pain Rated 7-10 Amlodipine Besylate 5 mg 06/02/20 09:00 06/08/20 08:33 Norvasc PO 5 mg DAILY [facility] Administration Aspirin 81 mg 06/02/20 09:00 06/08/20 08:33 Aspirin Ec PO 81 mg DAILY [facility] Administration Atorvastatin Calcium 40 mg 06/01/20 21:40 06/07/20 21:26 Lipitor PO 40 mg HS [facility] Administration Carvedilol 12.5 mg 06/08/20 09:00 Coreg PO Q12HR [facility] Cholestyramine Resin 4 gm 06/02/20 11:00 06/07/20 21:26 Questran Light Packet PO 4 gm 1100,1900 [facility] Administration Dextrose 12.5 gm 06/01/20 20:58 Dextrose 50% Syringe IV PUSH PRN PRN Hypoglycemia Protocol Epoetin Bradford-epbx 10,000 units 06/07/20 12:00 06/07/20 12:20 Retacrit SUB-Q 10,000 units TuThSa@1200 [facility] Administration Fenofibrate 48 mg 06/02/20 09:00 06/08/20 08:34 Tricor PO 07/03/20 09:01 48 mg DAILY [facility] Administration Ferrous Sulfate 324 mg 06/02/20 08:00 06/08/20 08:33 Ferrous Sulfate PO 324 mg DAILY@0800 [facility] Administration Fish Oil 1 gm 06/02/20 12:00 06/07/20 12:11 [place] PO 1 gm DAILY@1200 [facility] Administration Furosemide 40 mg 06/02/20 09:00 06/08/20 08:34 Lasix Tablet PO 40 mg BID [facility] Administration Gabapentin 300 mg 06/02/20 09:00 06/08/20 08:34 Neurontin PO 300 mg TID [facility] Administration Glucagon 1 mg 06/01/20 20:58 Glucagon For Inj IM PRN PRN Hypoglycemia Protocol Glucose 15 gm 06/01/20 20:58 Glutose 15 PO PRN PRN Hypoglycemia Protocol Heparin Sodium (Porcine) 5,000 units 06/02/20 14:00 06/08/20 05:35 Heparin Sodium SUB-Q 5,000 units Q8HR [facility] Administration Dextrose 1,000 mls @ 100 mls/hr 06/01/20 20:58 Dextrose 5% 1,000 Ml IVPB PRN PRN Hypoglycemia Protocol Insulin Glargine 8 units 06/01/20 21:35 06/07/20 20:41 Lantus SUB-Q 8 units HS [facility] Administration Loperamide HCl 2 mg 06/01/20 20:59 Loperamide Hcl PO Q6H PRN Diarrhea Multivitamins Therapeutic 1 table
[2020-06-08] MEDS: HYDROcodone/acetaminophen (*CRX) 5-325 MG TABLET 1 TAB PO (09:42)
[2020-06-08] MEDS: carvediloL 12.5 MG TABLET PO ×2 (10:07→20:36)
[2020-06-08 11:40] LABS: Glucose Point of Care 138 (65-105)
[2020-06-08] MEDS: CHOLESTYRAMINE LIGHT 4 GM POWD.PACK PO ×2 (12:00→19:41)
[2020-06-08] MEDS: OMEGA 3 POLYUNSAT FATTY ACIDS 1 GM CAP PO (12:36)
[2020-06-08] MEDS: CHOLECALCIFEROL 1,000 UNITS TABLET 2000 UNITS PO (12:36)
[2020-06-08] MEDS: MULTIVITAMINS THERAPEUTIC TAB (*BKC) 1 TABLET PO (12:37)
[2020-06-08] MEDS: PEG (High)/E-LYTE SOLN 4,000 ML BTL 4000 ML PO (12:52)
--- NOTE | 2020-06-08 13:15 | WPDNEURORHBP ---
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 He is doing fairly well does not have any specific new complaints particularly denies any headache nausea vomiting chest pain or shortness of breath vital signs have been stable Review of Systems Review of Systems: All systems reviewed & are unremarkable except as noted in HPI and below Exam Const: General: comfortable and no acute distress HENMT: General nose exam: Normal nares present Mouth: Yes moist mucous membranes Eyes: General: appearance normal, both eyes and all related structures Neck: Neck: supple and no JVD Resp: Effort & Inspection: normal respiratory effort Auscultation: clear to auscultation bilaterally Cardio: Rate: regular rate Rhythm: regular rhythm GI: GI Palp: Yes Soft to palpation Auscultation: normal bowel sounds Skin: General skin exam: normal color and no rashes or lesions noted Neuro: Other: patient is awake alert well oriented in time place and person is speech and language functions are normal his generalized weakness is improving is working on it Extrem: Other: the left BKA is clean Psych: Mental Status: mental status grossly normal Objective Data Vital Signs Vital Signs: Vital Signs - 24 hr 06/07/20 14:00 06/07/20 20:00 06/07/20 21:26 Temperature 36.1 C L 36.8 C Pulse Rate 68 73 69 Respiratory Rate 22 H 12 12 Blood Pressure 135/59 L 159/87 H Pulse Oximetry 98 95 95 06/07/20 21:27 06/08/20 05:13 06/08/20 10:07 Temperature 37.2 C Pulse Rate 73 70 70 Respiratory Rate 14 Blood Pressure 153/89 H Pulse Oximetry 95 Intake/Output Intake/Output: Intake & Output 06/05/20 06/06/20 06/07/20 06/08/20 23:59 23:59 23:59 23:59 Intake Total 720 1680 1680 Balance 720 1680 1680 Meds/Results Medications: Active Medications Generic Name Dose Route Start Last Admin Trade Name Freq PRN Reason Stop Dose Admin Acetaminophen 1,000 mg 06/01/20 20:59 06/02/20 10:19 Tylenol Tablet PO 1,000 mg Q6H PRN Administration Pain (Scale Score 1-3) Hydrocodone Bitart/Acetaminophen 1 tab 06/02/20 11:18 06/08/20 09:42 [place] 5-325 Mg PO 1 tab Q6H PRN Administration Pain Rated 4-6 Hydrocodone Bitart/Acetaminophen 2 tab 06/02/20 11:18 06/04/20 11:46 [place] 5-325 Mg PO 2 tab Q6H PRN Administration Pain Rated 7-10 Amlodipine Besylate 5 mg 06/02/20 09:00 06/08/20 08:33 Norvasc PO 5 mg DAILY [facility]OR Administration Aspirin 81 mg 06/02/20 09:00 06/08/20 08:33 Aspirin Ec PO 81 mg DAILY [facility] Administration Atorvastatin Calcium 40 mg 06/01/20 21:40 06/07/20 21:26 Lipitor PO 40 mg HS SAL[facility]ADOR Administration Carvedilol 12.5 mg 06/08/20 09:00 06/08/20 10:07 Coreg PO 12.5 mg Q12HR SAL[facility]OR Administration Cholestyramine Resin 4 gm 06/02/20 11:00 06/08/20 12:00 Questran Light Packet PO 4 gm 1100,1900 [facility]OR Administration Dextrose 12.5 gm 06/01/20 20:58 Dextrose 50% Syringe IV PUSH PRN PRN Hypoglycemia Protocol Epoetin Bradford-epbx 10,000 units 06/07/20 12:00 06/07/20 12:20 Retacrit SUB-Q 10,000 units TuThSa@1200 [place] Administration Fenofibrate 48 mg 06/02/20 09:00 06/08/20 08:34 Tricor PO 07/03/20 09:01 48 mg DAILY SAL[facility]OR Administration Ferrous Sulfate 324 mg 06/02/20 08:00 06/08/20 08:33 Ferrous Sulfate PO 324 mg DAILY@0800 SALV[facility]OR Administration Fish Oil 1 gm 06/02/20 12:00 06/08/20 12:36 Lovaza PO 1 gm DAILY@1200 [facility] Administration Furosemide 40 mg 06/02/20 09:00 06/08/20 08:34 Lasix Tablet PO 40 mg BID SALVADOR Administration Gabapentin 300 mg 06/02/20 09:00 06/08/20 12:37 Neurontin PO 300 mg TID SAL[facility]ADOR Administration Glucagon 1 mg 06/01/20 20:58 Glucagon For Inj IM PRN PRN Hypoglycemia Protocol Glucose 15 gm 06/01/20 20:58 Glutose 15 PO PRN PRN Hypogly
[2020-06-08 15:36] LABS: Creatine Kinase 99 U/L (55-170)
[2020-06-08 16:41] LABS: Glucose Point of Care 112 (65-105)
[2020-06-08] MEDS: ATORVASTATIN 40 MG TABLET PO (20:37)
[2020-06-08 20:55] LABS: Glucose Point of Care 125 (65-105)
--- NOTE | 2020-06-08 22:11 | WPDANESEPP ---
Anes - Eval Pre Procedure Procedure: Operation Date: 06/09/20 10:30 Proposed Procedures p Colonoscopy - Harjinder Bernstein MD Date/Time: 06/08/20 22:11 Surgeon: Day Preop Diagnosis: Anemia, diarrhea Pre Op Diagnosis: Jani BERNADINE Patient Data Age: 55 Gender: M Height: 6 ft Weight: 119.7 kg Last Vital Signs Temp 97.2 F L 06/08/20 22:00 Pulse 63 06/08/20 22:00 Resp 21 H 06/08/20 22:00 BP 128/50 L 06/08/20 22:00 Pulse Ox 100 06/08/20 22:00 Allergies Allergy/AdvReac Type Severity Reaction Status Date / Time Penicillins Allergy Unknown Unknown Verified 03/13/20 16:07 bee venom protein (honey bee) Allergy Swelling Verified 06/01/20 20:27 Home Medications Medication Instructions Recorded Confirmed Type acetaminophen 1,000 mg PO Q6H PRN 06/01/20 06/01/20 History amlodipine 5 mg PO DAILY 06/01/20 06/01/20 History aspirin 81 mg PO DAILY 06/01/20 06/01/20 History atorvastatin 40 mg PO HS 06/01/20 06/01/20 History cholecalciferol (vitamin D3) 50 mcg PO DAILY 06/01/20 06/01/20 History [Vitamin D3] cholestyramine-aspartame 4 g PO BID 06/01/20 06/01/20 History [Cholestyramine Light] cinnamon bark 500 mg PO DAILY 06/01/20 06/01/20 History fenofibrate 54 mg PO DAILY 06/01/20 06/01/20 History ferrous sulfate 325 mg PO DAILY 06/01/20 06/01/20 History furosemide 40 mg PO BID 06/01/20 06/01/20 History gabapentin 300 mg PO TID 06/01/20 06/01/20 History insulin glargine [Lantus U-100 8 unit SUBCUT HS 06/01/20 06/01/20 History Insulin] linagliptin [Tradjenta] 5 mg PO QAM 06/01/20 06/01/20 History loperamide 2 mg PO Q6H PRN 06/01/20 06/01/20 History multivitamin 1 tablet PO DAILY 06/01/20 06/01/20 History nitroglycerin 0.4 mg SUBLINGUAL Q5-15M PRN 06/01/20 06/01/20 History omega-3 fatty acids-fish oil 1 cap PO DAILY 06/01/20 06/01/20 History prednisolone acetate [Pred Forte] 1 drp LEFTEYE QID 06/01/20 06/01/20 History sennosides-docusate sodium [Senna 1 tab-cap PO BID PRN 06/01/20 06/01/20 History with Docusate Sodium] Laboratory Tests 06/08/20 06/08/20 06/08/20 04:46 04:46 06:21 WBC 8.5 K/mm3 K/mm3 (4.5-10.0) RBC 2.74 M/mm3 L M/mm3 (4.6-6.20) Hgb 7.6 g/dL L g/dL (14.0-18.0) Hct 24.8 % L % (42.0-52.0) MCV 90.5 fl fl (80-100) MCH 27.7 pg pg (26-34) MCHC 30.6 g/dl L g/dl (32-36) RDW 19.5 % H % (11.5-14.5) Plt Count 276 k/mm3 k/mm3 (150-375) MPV 11.3 fl H fl (7.4-10.4) Sodium 140 mmol/L mmol/L (137-145) Potassium 5.2 mmol/L H mmol/L (3.4-5.0) Chloride 112 mmol/L H mmol/L (98-107) Carbon Dioxide 22 mmol/L mmol/L (22-30) Anion Gap 6 mmol/L L mmol/L (8-16) BUN 90 mg/dL H D mg/dL (9-20) Creatinine 2.10 mg/dL H mg/dL (0.7-1.3) Estim Creat Clear Calc 47 ml/min ml/min Estimated GFR 33 L (59 - ) Glucose 120 mg/dL H mg/dL (75-110) POC Capillary Glucose 121 mg/dl H mg/dl (65-105) Calcium 8.3 mg/dL L mg/dL (8.4-10.2) Phosphorus 4.3 mg/dL mg/dL (2.5-4.5) Total Creatine Kinase Albumin 2.6 g/dL L g/dL (3.5-5.1) Aldolase Vitamin B12 Folate TRICIA Screen 06/08/20 06/08/20 06/08/20 11:33 15:19 15:19 WBC RBC Hgb Hct MCV MCH MCHC RDW Plt Count MPV Sodium Potassium Chloride Carbon Dioxide Anion Gap BUN Creatinine Estim Creat Clear Calc Estimated GFR Glucose POC Capillary Glucose 138 mg/dl H mg/dl (65-105) Calcium Phosphorus Total Creatine Kinase 99 U/L U/L (55-170) Albumin
--- NOTE | 2020-06-08 22:50 | PC.NURSE ---
Notified Dr Mendes 2100 finger stix 125 and to recieve 8 units lantus insulin this evening . Pt is NPO after midnight for colonoscopy 10:30 am 06/09,pt is finishing bowel prep.Order recieved to hold insulin this pm.
[2020-06-09] VITALS (9 sets, daily range): BP systolic 93–137; BP diastolic 48–67; PULSE 51–112; RESP 18–21; TEMP 36–36.9; O2SAT 86–100
[2020-06-09] MEDS: LACTATED RINGERS 1,000 ML 150 ML IV CONT ×2 (05:15→09:15)
[2020-06-09 05:50] LABS: Basophils Absolute Auto 0.1 K/mm3 (0.0-0.1); Basophils Percent Auto 0.8 % (0.2-1.2); Eosinophils Absolute Auto 0.4 K/mm3 (0-0.3); Eosinophils Percent Auto 4.9 % (0-4.4); Hematocrit 24.2 % (42.0-52.0); Hemoglobin 7.5 g/dL (14.0-18.0); Immature Granulocyte Absolute 0.05 K/mm3 (0.00-0.031); Immature Granulocyte Percent A 0.6 % (0-0.5); Lymphocytes Absolute Auto 0.83 K/mm3 (0.9-3.2); Lymphocytes Percent Auto 10.8 % (18.3-44.2); Mean Corpuscular Hemoglobin 27.8 pg (26-34); Mean Corpuscular Volume 89.6 fl (80-100); Mean Platelet Volume 11.2 fl (7.4-10.4); Monocytes Percent Auto 12.4 % (2.6-8.5); Neutrophils Absolute Auto 5.4 K/mm3 (1.3-6.7); Neutrophils Percent Auto 70.5 % (45.5-73.1); Platelet Count Result 262 k/mm3 (150-375); Red Cell Distribution Width 19.2 % (11.5-14.5); White Blood Count 7.7 K/mm3 (4.5-10.0)
[2020-06-09 06:21] LABS: Anion Gap 8 mmol/L (8-16); Blood Urea Nitrogen 93 mg/dL (9-20); Calcium 8.2 mg/dL (8.4-10.2); Carbon Dioxide 21 mmol/L (22-30); Chloride 110 mmol/L (98-107); Estimated CRCL calculation 47 ml/min; Estimated Glomerular Filt Rate 33; Glucose 98 mg/dL (75-110); Potassium 5.2 mmol/L (3.4-5.0); Sodium 139 mmol/L (137-145)
[2020-06-09 06:50] LABS: Glucose Point of Care 91 (65-105)
--- NOTE | 2020-06-09 07:19 | PC.NURSE ---
Called Dr Bernstein [phone] to inform him bm's are not clear. Order recieved to administer 2 fleets enemas this am. Lactated ringers on hold to be administerd in GI lab.
[2020-06-09] MEDS: GABAPENTIN 300 MG CAPSULE PO ×3 (07:44→15:37)
[2020-06-09] MEDS: carvediloL 12.5 MG TABLET PO ×2 (07:45→21:03)
--- NOTE | 2020-06-09 08:02 | PM.PNNEP ---
Progress Note: A&P Assessment and Plan (1) Chronic kidney disease, stage IV (severe): Code(s): N18.4 - Chronic kidney disease, stage 4 (severe) Status: Acute Assessment and Plan: baseline creatinine runs ~ 2.1 - 2.6mg/dl multifactorial etiology: - depressed ejection fraction/cardiomyopathy (making him prone to prerenal azotemia) - necessity of diuretics to maintain volume status - diabetes - hypertesnion - peripheral vascular disease continue supportive therapy creatinine looks okay (2) Status post below-knee amputation of left lower extremity: Code(s): Z89.512 - Acquired absence of left leg below knee Status: Acute Assessment and Plan: due to non-salvageable left foot/leg gangrene local wound care continue aggressive PT/OT/rehab (3) Chronic combined systolic and diastolic heart failure: Code(s): I50.42 - Chronic combined systolic (congestive) and diastolic (congestive) heart failure Status: Acute Assessment and Plan: appears compensated at this time follows with Dr. Gee as an outpatient - will consult for further recommendations He has some swelling. On lasix bid. He is on amlodipine. (4) Hypertension: Code(s): I10 - Essential (primary) hypertension Status: Acute Assessment and Plan: bp is good this morning (5) Anemia: Code(s): D64.9 - Anemia, unspecified Status: Acute Assessment and Plan: likely due to recent operative intervention and CKD follow H/H on oral iron Will start EPO (6) Diabetes mellitus with multiple complications: Code(s): E11.8 - Type 2 diabetes mellitus with unspecified complications Status: Acute Assessment and Plan: follow accuchecks on Lantus Subjective Date/time seen: 06/09/20 16:43 Interval history: Patient feels okay. lying in bed. he had bowel prep yesterday for colonoscopy today no sob or cp Review of Systems Cardiovascular: Cardiovascular: Reports no additional cardiovascular complaints Respiratory: Respiratory: Reports no additional respiratory complaints Gastrointestinal: Gastrointestinal: Reports no additional gastrointestinal complaints Genitourinary: Genitourinary: Reports no additional male genitourinary complaints Exam Narrative: Exam Narrative: General: WD/WN male in NAD Heart: normal S1 and S2; no rub Lungs: clear bilaterally Abdomen: soft, nontender, nondistended, positive bowel sounds Extremities: One to2+ edema in the right lower extremity. Skin: no rash Objective Data Vital Signs Vital Signs: Vital Signs - 24 hr 06/08/20 20:00 06/08/20 20:36 06/08/20 22:00 Temperature 36.2 C L Pulse Rate 63 63 63 Respiratory Rate 20 21 H Blood Pressure 128/50 L Pulse Oximetry 97 100 06/09/20 06:00 06/09/20 07:45 06/09/20 09:21 Temperature 36.3 C L 36.8 C Pulse Rate 65 56 L 54 L Respiratory Rate 20 18 Blood Pressure 137/67 124/60 Pulse Oximetry 100 98 06/09/20 10:10 06/09/20 10:20 06/09/20 10:30 Temperature Pulse Rate 51 L 52 L 53 L Respiratory Rate 18 19 Blood Pressure 93/48 L 104/53 L 116/59 L Pulse Oximetry 86 L 97 95 06/09/20 14:00 Temperature 36.3 C L Pulse Rate 65 Respiratory Rate 20 Blood Pressure 137/67 Pulse Oximetry 100 Intake/Output Intake/Output: Intake & Output 06/06/20 06/07/20 06/08/20 06/09/20 23:59 23:59 23:59 23:59 Intake Total 1680 1680 480 150 Balance 1680 1680 480 150 Meds/Results Medications: Active Medications Generic Name Dose Route Start Last Admin Trade Name Freq PRN Reason Stop Dose Admin Acetaminophen 1,000 mg 06/01/20 20:59 06/02/20 10:19 Tylenol Tablet PO 1,000 mg Q6H PRN Administration Pain (Scale Score 1-3) Hydrocodone Bitart/Acetaminophen 1 tab 06/02/20 11:18 06/08/20 09:42 [place] 5-325 Mg PO 1 tab Q6H PRN Administration Pain Rated 4-6 Hyd
--- NOTE | 2020-06-09 08:08 | PC.NURSE ---
Patient given fleet enema at 0730. meds given, only carvidelol and gabapentin. pulse 64 and regular, lungs clear, bowel sounds hypoactive, will monitor for necessity of 2nd fleet enema
--- NOTE | 2020-06-09 09:10 | PC.NURSE ---
GI lab picked up patient at 904, he did not receive the 2nd fleet enema
[2020-06-09 09:20] LABS: Glucose Point of Care 77 (65-105)
--- NOTE | 2020-06-09 09:52 | PCPTNOTE ---
The patient treatment was not able to be completed on June 09, 2020 due to patient off unit due to colonoscopy. Patient missed 60 min of physical therapy this am. Will plan to continue treatment per plan of care.
--- NOTE | 2020-06-09 09:58 | SUR.OPER ---
WOUND NOTED TO BUTTOCK, RIGHT HEEL
--- NOTE | 2020-06-09 10:40 | PCOTNOTE ---
Attempted OT treatment, but unable to complete as patient gone for a coloscopy. Will attempt again later.
[2020-06-09 10:54] LABS: Glucose Point of Care 76 (65-105)
--- NOTE | 2020-06-09 11:45 | PC.NURSE ---
Patient returned to floor, made comfortable, has no new orders except to add high fiber diet. He is alert and oriented no c/o discomfort only is hungry,
--- NOTE | 2020-06-09 11:49 | WPDNEURORHBP ---
Subjective Date/time seen: 06/09/20 11:49 Interval history: this 55-year-old gentleman is here status post left BKA and evidence of significant peripheral neuropathy affecting both upper and the lower extremities he has had diarrhea and has been seen the fortune teller here and underwent colonoscopy and the reports are going to be reviewed The patient denies any chest pain shortness of breath fever chills sore throat Review of Systems Review of Systems: All systems reviewed & are unremarkable except as noted in HPI and below Exam Narrative: Exam Narrative: the patient is awake alert will oriented has normal speech and language function normal cranial examination however significant evidence of the peripheral neuropathy where the weakness is there bilateral The eyes are unremarkable, the ENT examination is normal, chest is clear to auscultation, cardiovascular examination is negative abdomen soft not tender left BKA is [place] Skin: General skin exam: normal color and no rashes or lesions noted Extrem: Other: the left BKA is clean and healthy Psych: Appearance: grossly normal Objective Data Vital Signs Vital Signs: Vital Signs - 24 hr 06/08/20 14:06 06/08/20 20:00 06/08/20 20:36 Temperature 36.8 C Pulse Rate 63 63 63 Respiratory Rate 20 20 Blood Pressure 125/69 Pulse Oximetry 97 97 06/08/20 22:00 06/09/20 06:00 06/09/20 07:45 Temperature 36.2 C L 36.0 C L Pulse Rate 63 112 H 56 L Respiratory Rate 21 H 21 H Blood Pressure 128/50 L 118/51 L Pulse Oximetry 100 100 06/09/20 09:21 06/09/20 10:10 06/09/20 10:20 Temperature 36.8 C Pulse Rate 54 L 51 L 52 L Respiratory Rate 18 18 19 Blood Pressure 124/60 93/48 L 104/53 L Pulse Oximetry 98 86 L 97 06/09/20 10:30 Temperature Pulse Rate 53 L Respiratory Rate Blood Pressure 116/59 L Pulse Oximetry 95 Intake/Output Intake/Output: Intake & Output 06/06/20 06/07/20 06/08/20 06/09/20 23:59 23:59 23:59 23:59 Intake Total 1680 1680 480 150 Balance 1680 1680 480 150 Meds/Results Medications: Active Medications Generic Name Dose Route Start Last Admin Trade Name Freq PRN Reason Stop Dose Admin Acetaminophen 1,000 mg 06/01/20 20:59 06/02/20 10:19 Tylenol Tablet PO 1,000 mg Q6H PRN Administration Pain (Scale Score 1-3) Hydrocodone Bitart/Acetaminophen 1 tab 06/02/20 11:18 06/08/20 09:42 [place] 5-325 Mg PO 1 tab Q6H PRN Administration Pain Rated 4-6 Hydrocodone Bitart/Acetaminophen 2 tab 06/02/20 11:18 06/04/20 11:46 [place] 5-325 Mg PO 2 tab Q6H PRN Administration Pain Rated 7-10 Amlodipine Besylate 5 mg 06/02/20 09:00 06/08/20 08:33 Norvasc PO 5 mg DAILY [place] Administration Aspirin 81 mg 06/02/20 09:00 06/08/20 08:33 Aspirin Ec PO 81 mg DAILY [facility] Administration Atorvastatin Calcium 40 mg 06/01/20 21:40 06/08/20 20:37 Lipitor PO 40 mg HS [facility] Administration Carvedilol 12.5 mg 06/08/20 09:00 06/09/20 07:45 Coreg PO 12.5 mg Q12HR [facility] Administration Cholestyramine Resin 4 gm 06/02/20 11:00 06/08/20 19:41 Questran Light Packet PO 4 gm 1100,1900 [facility] Administration Dextrose 12.5 gm 06/01/20 20:58 Dextrose 50% Syringe IV PUSH PRN PRN Hypoglycemia Protocol Epoetin Bradford-epbx 10,000 units 06/07/20 12:00 06/07/20 12:20 Retacrit SUB-Q 10,000 units TuThSa@1200 [place] Administration Fenofibrate 48 mg 06/02/20 09:00 06/08/20 08:34 Tricor PO 07/03/20 09:01 48 mg DAILY [facility] Administration Ferrous Sulfate 324 mg 06/02/20 08:00 06/08/20 08:33 Ferrous Sulfate PO 324 mg DAILY@0800 [facility] Administration Fish Oil 1 gm 06/02/20 12:00 06/08/20 12:36 Lovaza PO 1 gm DAILY@1200 [facility] Administration Furosemide 40 mg 06/02/20 09:00 06/08/20 17:54 Lasix Tablet PO 40 mg BID [facility] Administration Gabapentin 300 mg 06/02/20 09:00 06/09/20 07:44 Neurontin PO 300 mg TID SALVADOR
--- NOTE | 2020-06-09 12:05 | PCOTNOTE ---
Limited OT minutes this morning secondary to patient out of room for a coloscopy.
[2020-06-09] MEDS: FERROUS SULFATE 324 MG TABLET PO (12:22)
[2020-06-09] MEDS: ASPIRIN 81 MG ENTERIC TABLET PO (12:23)
[2020-06-09] MEDS: FENOFIBRATE,MICRONIZED 48 MG TABLET PO (12:23)
[2020-06-09] MEDS: amLODIPine BESYLATE 5 MG TABLET PO (12:23)
[2020-06-09] MEDS: FUROSEMIDE 40 MG TABLET PO ×2 (12:24→15:36)
[2020-06-09] MEDS: CHOLESTYRAMINE LIGHT 4 GM POWD.PACK PO ×2 (12:24→18:37)
[2020-06-09] MEDS: MULTIVITAMINS THERAPEUTIC TAB (*BKC) 1 TABLET PO (12:24)
[2020-06-09] MEDS: CHOLECALCIFEROL 1,000 UNITS TABLET 2000 UNITS PO (12:24)
[2020-06-09] MEDS: OMEGA 3 POLYUNSAT FATTY ACIDS 1 GM CAP PO (12:24)
--- NOTE | 2020-06-09 14:51 | PCPTNOTE ---
Patient refused treatment this session due to feeling fatigued. Patient stated I want a break today. Patient did not receive full PT minutes this date.
--- NOTE | 2020-06-09 15:02 | PCDIET ---
Nutrition Follow-Up Complete: Nutrition Diagnosis: Decreased sodium needs related to CHF as evidenced by medical history, per EMR. Nutrition Goal: Patient to consume 75% of meals + supplements. Goal in progress. Patient consuming 100% of most meals, but supplement was discontinued when patient made NPO for colonoscopy. Dx diverticulosis and hemorrhoids with order for high fiber diet. Recommend adding carbohydrate control, Glucerna Shake (220kcal, 10g protein) 1x daily and Malik (80kcal, 14g amino acids) BID. Last recorded weight is 119.7 kg. Recommend weekly weight. Bowel Motility: +BM today, per nursing flowsheet. Labs Reviewed: Hgb (7.5), Hct (24.2), BUN (93), Cr (2.1), K (5.2), Ca (8.2) Meds Noted: Norvasc, Coreg, Questran, Retacrit, Tricor, Ferrous Sulfate, Lovaza, Lasix, Vitamin D, Januvia Additional Notes: Right heel and coccyx abrasions. Left leg surgical incision. RN reports concern for potential skin breakdown; hence, protein supplements should resume. Will closely monitor renal labs and make recommendation for adjustments, as indicated. Nutrition Monitoring and Evaluation: Follow up every 7 days.
[2020-06-09] MEDS: HEPARIN SODIUM 5,000 UNITS/ML VIAL 5000 UNITS SUB-Q ×2 (15:36→21:04)
[2020-06-09] MEDS: EPOETIN ALFA-EPBX 10,000 UNITS/ML VIAL 10000 UNITS SUB-Q (15:36)
--- NOTE | 2020-06-09 15:38 | PCOTNOTE ---
Attempted OT treatment twice this afternoon, but unable to complete due to fatigue and patient decline. Patient did not receive full OT minutes this date.
[2020-06-09 17:07] LABS: Glucose Point of Care 152 (65-105)
[2020-06-09] MEDS: ATORVASTATIN 40 MG TABLET PO (21:03)
[2020-06-09 21:33] LABS: Glucose Point of Care 152 (65-105)
[2020-06-09] MEDS: INSULIN GLARGINE (*BKC) 100 UNITS/ML 8 UNITS SUB-Q (21:37)
[2020-06-10 06:00] VITALS: BP 130/54; PULSE 67; RESP 20; TEMP 37.2; O2SAT 99
[2020-06-10] MEDS: HEPARIN SODIUM 5,000 UNITS/ML VIAL 5000 UNITS SUB-Q ×3 (06:42→21:24)
[2020-06-10 07:05] LABS: Glucose Point of Care 143 (65-105)
--- NOTE | 2020-06-10 07:15 | WPDGIPROGNO ---
Progress Note: A&P Additional Plan Patient comfortable this morning. He has been tolerating diet. He reports diarrhea has improved. Physical exam reveals abdomen to be benign bowel sounds are present soft nontender with no organomegaly. Labs reveal hemoglobin 7.5, hematocrit 24.2, MCV 89. Impression 1. Resolving diarrhea. Etiology unclear I suspect this may be related to diabetes. Plan is to continue fiber supplementation. No evidence of inflammation or pathology of significance in the ?recent colonoscopy. 2. Anemia peers to be related to chronic disease. Likely related to kidney disease. 3. Left BKA. Rehab in progress. Plan is for supportive care. Disposition per primary care service. Subjective Date/time seen: 06/10/20 07:16 Objective Data Vital Signs Vital Signs: Vital Signs - 24 hr 06/09/20 07:45 06/09/20 09:21 06/09/20 10:10 Temperature 98.2 F Pulse Rate 56 L 54 L 51 L Respiratory Rate 18 18 Blood Pressure 124/60 93/48 L Pulse Oximetry 98 86 L 06/09/20 10:20 06/09/20 10:30 06/09/20 14:00 Temperature 97.3 F L Pulse Rate 52 L 53 L 65 Respiratory Rate 19 20 Blood Pressure 104/53 L 116/59 L 137/67 Pulse Oximetry 97 95 100 06/09/20 21:03 06/09/20 22:00 06/10/20 06:00 Temperature 98.4 F 99.0 F Pulse Rate 70 70 67 Respiratory Rate 20 20 Blood Pressure 133/65 130/54 L Pulse Oximetry 99 99 Intake/Output Intake/Output: Intake & Output 06/07/20 06/08/20 06/09/20 06/10/20 23:59 23:59 23:59 23:59 Intake Total 1680 480 390 Balance 1680 480 390 Meds/Results Medications: Active Medications Generic Name Dose Route Start Last Admin Trade Name Freq PRN Reason Stop Dose Admin Acetaminophen 1,000 mg 06/01/20 20:59 06/02/20 10:19 Tylenol Tablet PO 1,000 mg Q6H PRN Administration Pain (Scale Score 1-3) Hydrocodone Bitart/Acetaminophen 1 tab 06/02/20 11:18 06/08/20 09:42 [place] 5-325 Mg PO 1 tab Q6H PRN Administration Pain Rated 4-6 Hydrocodone Bitart/Acetaminophen 2 tab 10/01/20 11:18 06/04/20 11:46 [place] 5-325 Mg PO 2 tab Q6H PRN Administration Pain Rated 7-10 Amlodipine Besylate 5 mg 06/02/20 09:00 06/09/20 12:23 Norvasc PO 5 mg DAILY [facility] Administration Aspirin 81 mg 06/02/20 09:00 06/09/20 12:23 Aspirin Ec PO 81 mg DAILY [facility] Administration Atorvastatin Calcium 40 mg 06/01/20 21:40 06/09/20 21:03 Lipitor PO 40 mg HS [facility]OR Administration Carvedilol 12.5 mg 06/08/20 09:00 06/09/20 21:03 Coreg PO 12.5 mg Q12HR [facility] Administration Cholestyramine Resin 4 gm 06/02/20 11:00 06/09/20 18:37 Questran Light Packet PO 4 gm 1100,1900 [facility] Administration Dextrose 12.5 gm 06/01/20 20:58 Dextrose 50% Syringe IV PUSH PRN PRN Hypoglycemia Protocol Epoetin [place]-epbx 10,000 units 06/07/20 12:00 06/09/20 15:36 Retacrit SUB-Q 10,000 units TuThSa@1200 [place] Administration Fenofibrate 48 mg 06/02/20 09:00 06/09/20 12:23 Tricor PO 07/03/20 09:01 48 mg DAILY [facility] Administration Ferrous Sulfate 324 mg 06/02/20 08:00 06/09/20 12:22 Ferrous Sulfate PO 324 mg DAILY@0800 [place] Administration Fish Oil 1 gm 06/02/20 12:00 06/09/20 12:24 Lovaza PO 1 gm DAILY@1200 [place] Administration Furosemide 40 mg 06/02/20 09:00 06/09/20 15:36 Lasix Tablet PO 40 mg BID SALVAODR Administration Gabapentin 300 mg 06/02/20 09:00 06/09/20 15:37 Neurontin PO 300 mg TID [place] Administration Glucagon 1 mg 06/01/20 20:58 Glucagon For Inj IM PRN PRN Hypoglycemia Protocol Glucose 15 gm 06/01/20 20:58 Glutose 15 PO PRN PRN Hypoglycemia Protocol Heparin Sodium (Porcine) 5,000 units 06/02/20 14:00 06/10/20 06:42 Heparin Sodium 5,000 Units/Ml Vial SUB-Q 5,000 units Q8HR [facility]OR Administration Dextrose 1,000 mls @ 100 mls/hr 06/01/20 20:58 Dextrose 5% 1,000 Ml IVPB PRN PRN Hypoglyce
[2020-06-10] MEDS: amLODIPine BESYLATE 5 MG TABLET PO (09:15)
[2020-06-10] MEDS: FERROUS SULFATE 324 MG TABLET PO (09:15)
[2020-06-10 09:16] VITALS: PULSE 67
[2020-06-10] MEDS: ASPIRIN 81 MG ENTERIC TABLET PO (09:16)
[2020-06-10] MEDS: carvediloL 12.5 MG TABLET PO ×2 (09:16→20:12)
[2020-06-10] MEDS: FENOFIBRATE,MICRONIZED 48 MG TABLET PO (09:17)
[2020-06-10] MEDS: GABAPENTIN 300 MG CAPSULE PO ×3 (09:17→17:15)
[2020-06-10] MEDS: FUROSEMIDE 40 MG TABLET PO ×2 (09:17→17:14)
[2020-06-10 12:14] LABS: Glucose Point of Care 166 (65-105)
[2020-06-10] MEDS: CHOLECALCIFEROL 1,000 UNITS TABLET 2000 UNITS PO (12:39)
[2020-06-10] MEDS: CHOLESTYRAMINE LIGHT 4 GM POWD.PACK PO (12:39)
[2020-06-10] MEDS: MULTIVITAMINS THERAPEUTIC TAB (*BKC) 1 TABLET PO (12:39)
[2020-06-10] MEDS: OMEGA 3 POLYUNSAT FATTY ACIDS 1 GM CAP PO (12:39)
--- NOTE | 2020-06-10 13:16 | WPDNEURORHBP ---
Subjective Date/time seen: 06/10/20 13:16 Interval history: this 55-year-old is admitted because of left BKA he is a diabetic and has had diarrhea for some time which has really gone after the amputation was performed his evaluation best the by the line locator is negative he has been seen by the lost charge card clerk and the meat market manager for renal dysfunction and also history of congestive heart failure their notes were reviewed and concurred The feeling is much better he denies headache chest shortness of fever chills sore throat His hemoglobin is slowly trending down which did and along with wound less than 70 transfusion Review of Systems Review of Systems: All systems reviewed & are unremarkable except as noted in HPI and below Exam Narrative: Exam Narrative: the patient is awake alert well oriented time place and person he is not distress he is comfortable and well developed Head is normocephalic, hearing is intact ENT examination normal, neck is supple no bruits are noted chest is clear cardiac rate and rhythm is regular abdomen is soft tenderness extremities revealed left BKA no significant drainage Neurological examination reveals to have a normal mental state examination normal cranial examination decreased strength in both upper and the lower extremities related to significant diabetic neuropathy with absent reflexes in the sensory deficit along with motor deficit in both upper lower extremities distal more so than the proximal patient is needing assistance all the activities of daily living Objective Data Vital Signs Vital Signs: Vital Signs - 24 hr 06/09/20 14:00 06/09/20 21:03 06/09/20 22:00 Temperature 36.3 C L 36.9 C Pulse Rate 65 70 70 Respiratory Rate 20 20 Blood Pressure 137/67 133/65 Pulse Oximetry 100 99 06/10/20 06:00 06/10/20 09:16 Temperature 37.2 C Pulse Rate 67 67 Respiratory Rate 20 Blood Pressure 130/54 L Pulse Oximetry 99 Intake/Output Intake/Output: Intake & Output 06/07/20 06/08/20 06/09/20 06/10/20 23:59 23:59 23:59 23:59 Intake Total 1680 480 390 240 Balance 1680 480 390 240 Meds/Results Medications: Active Medications Generic Name Dose Route Start Last Admin Trade Name Freq PRN Reason Stop Dose Admin Acetaminophen 1,000 mg 06/01/20 20:59 06/02/20 10:19 Tylenol Tablet PO 1,000 mg Q6H PRN Administration Pain (Scale Score 1-3) Hydrocodone Bitart/Acetaminophen 1 tab 06/02/20 11:18 06/08/20 09:42 Hydrocodone/Acetaminophen (*Crx) 5-325 Mg Tablet PO 1 tab Q6H PRN Administration Pain Rated 4-6 Hydrocodone Bitart/Acetaminophen 2 tab 06/02/20 11:18 06/04/20 11:46 Hydrocodone/Acetaminophen (*Crx) 5-325 Mg Tablet PO 2 tab Q6H PRN Administration Pain Rated 7-10 Amlodipine Besylate 5 mg 06/02/20 09:00 06/10/20 09:15 Norvasc PO 5 mg DAILY [facility]VADOR Administration Aspirin 81 mg 06/02/20 09:00 06/10/20 09:16 Aspirin Ec PO 81 mg DAILY SAL[facility]ADOR Administration Atorvastatin Calcium 40 mg 06/01/20 21:40 06/09/20 21:03 Lipitor PO 40 mg HS [facility]VADOR Administration Carvedilol 12.5 mg 06/08/20 09:00 06/10/20 09:16 Coreg PO 12.5 mg Q12HR SALVADOR Administration Cholestyramine Resin 4 gm 06/02/20 11:00 06/10/20 12:39 Questran Light Packet PO 4 gm 1100,1900 [facility]OR Administration Dextrose 12.5 gm 06/01/20 20:58 Dextrose 50% Syringe IV PUSH PRN PRN Hypoglycemia Protocol Epoetin Bradford-epbx 10,000 units 06/07/20 12:00 06/09/20 15:36 Retacrit SUB-Q 10,000 units TuThSa@1200 [facility] Administration Fenofibrate 48 mg 06/02/20 09:00 06/10/20 09:17 Tricor PO 07/03/20 09:01 48 mg DAILY SAL[facility]ADOR Administration Ferrous Sulfate 324 mg 06/02/20 08:00 06/10/20 09:15 Ferrous Sulfate PO 324 mg DAILY@0800 [facility]OR Administration Fish Oil 1 gm 06/02/20 12:00 06/10/20 12:39 Lovaza PO 1 gm DAILY@1200 [facility] Administration Furosemide 40 mg 06/02/20 09:00 06/10/20 09:17 Lasix
--- NOTE | 2020-06-10 13:25 | WPDANESPN ---
Anes - Prog Note Post-Op Date/Time: 06/10/20 13:25 Cardiovascular status: normal Respiratory status: normal Airway patency: baseline Mental status: baseline Post-Op hydration status: normal Vital Signs: Last Vital Signs Temp 37.2 C 06/10/20 06:00 Pulse 67 06/10/20 09:16 Resp 20 06/10/20 06:00 BP 130/54 L 06/10/20 06:00 Pulse Ox 99 06/10/20 06:00 Pain Score (VAS): 2 I/O: Intake & Output 06/09/20 06/10/20 06/10/20 23:59 07:59 15:59 Intake Total 240 240 Balance 240 240 Laboratory Tests 06/09/20 05:00 06/09/20 05:00 06/09/20 06/09/20 06/10/20 16:56 21:23 06:46 POC Capillary Glucose 152 H 152 H 143 H 06/10/20 12:11 POC Capillary Glucose 166 H Post-procedural complaints: none Patient Feedback: Patient satisfied with anesthetic care.
[2020-06-10 13:35] VITALS: BP 134/63; PULSE 68; O2SAT 91
[2020-06-10 14:00] VITALS: BP 121/51; PULSE 64; RESP 20; TEMP 36.4; O2SAT 98
[2020-06-10 17:30] LABS: Glucose Point of Care 163 (65-105)
[2020-06-10 20:03] LABS: Glucose Point of Care 162 (65-105)
[2020-06-10] MEDS: INSULIN GLARGINE (*BKC) 100 UNITS/ML 8 UNITS SUB-Q (20:09)
[2020-06-10 20:12] VITALS: PULSE 68
[2020-06-10] MEDS: ATORVASTATIN 40 MG TABLET PO (20:13)
[2020-06-10 20:17] VITALS: BP 129/57; PULSE 65; RESP 18; TEMP 36.3; O2SAT 99
[2020-06-11] VITALS (11 sets, daily range): BP systolic 113–141; BP diastolic 55–64; PULSE 55–66; RESP 18–20; TEMP 36.1–36.6; O2SAT 97–100; BMI 10.0
[2020-06-11] MEDS: CHOLESTYRAMINE LIGHT 4 GM POWD.PACK PO ×3 (02:13→19:00)
[2020-06-11 04:49] LABS: Basophils Absolute Auto 0.1 K/mm3 (0.0-0.1); Basophils Percent Auto 0.8 % (0.2-1.2); Eosinophils Absolute Auto 0.4 K/mm3 (0-0.3); Eosinophils Percent Auto 4.9 % (0-4.4); Hematocrit 22.9 % (42.0-52.0); Immature Granulocyte Absolute 0.05 K/mm3 (0.00-0.031); Immature Granulocyte Percent A 0.7 % (0-0.5); Lymphocytes Percent Auto 9.5 % (18.3-44.2); Mean Corpuscular HGB Conc 30.1 g/dl (32-36); Mean Corpuscular Hemoglobin 27.3 pg (26-34); Mean Corpuscular Volume 90.5 fl (80-100); Mean Platelet Volume 11.6 fl (7.4-10.4); Monocytes Absolute Auto 1.1 K/mm3 (0.1-0.6); Monocytes Percent Auto 14.6 % (2.6-8.5); Neutrophils Absolute Auto 5.1 K/mm3 (1.3-6.7); Neutrophils Percent Auto 69.5 % (45.5-73.1); Platelet Count Result 265 k/mm3 (150-375); Red Blood Count 2.53 M/mm3 (4.6-6.20); Red Cell Distribution Width 19.2 % (11.5-14.5); White Blood Count 7.4 K/mm3 (4.5-10.0)
[2020-06-11 05:03] LABS: Anion Gap 7 mmol/L (8-16); Blood Urea Nitrogen 99 mg/dL (9-20); Carbon Dioxide 22 mmol/L (22-30); Chloride 111 mmol/L (98-107); Estimated CRCL calculation 40 ml/min; Estimated Glomerular Filt Rate 27; Glucose 133 mg/dL (75-110); Sodium 140 mmol/L (137-145)
[2020-06-11 05:23] LABS: Hemoglobin 6.9 g/dL (14.0-18.0)
[2020-06-11] MEDS: HEPARIN SODIUM 5,000 UNITS/ML VIAL 5000 UNITS SUB-Q ×3 (05:37→21:05)
[2020-06-11 06:51] LABS: Glucose Point of Care 119 (65-105)
[2020-06-11] MEDS: ASPIRIN 81 MG ENTERIC TABLET PO (08:39)
[2020-06-11] MEDS: amLODIPine BESYLATE 5 MG TABLET PO (08:39)
[2020-06-11] MEDS: FUROSEMIDE 40 MG TABLET PO ×2 (08:39→17:33)
[2020-06-11] MEDS: FERROUS SULFATE 324 MG TABLET PO (08:39)
[2020-06-11] MEDS: GABAPENTIN 300 MG CAPSULE PO ×3 (08:40→17:33)
[2020-06-11] MEDS: FENOFIBRATE,MICRONIZED 48 MG TABLET PO (08:40)
[2020-06-11] MEDS: carvediloL 12.5 MG TABLET PO ×2 (08:41→21:04)
[2020-06-11] MEDS: MULTIVITAMINS THERAPEUTIC TAB (*BKC) 1 TABLET PO (12:16)
[2020-06-11] MEDS: CHOLECALCIFEROL 1,000 UNITS TABLET 2000 UNITS PO (12:16)
[2020-06-11] MEDS: OMEGA 3 POLYUNSAT FATTY ACIDS 1 GM CAP PO (12:16)
[2020-06-11] MEDS: EPOETIN ALFA-EPBX 10,000 UNITS/ML VIAL 10000 UNITS SUB-Q (12:17)
[2020-06-11 12:37] LABS: Glucose Point of Care 136 (65-105)
--- NOTE | 2020-06-11 13:15 | WPDNEURORHBP ---
Subjective Date/time seen: 06/11/20 13:15 55 YEARS OLD ADMITTED FOR LEFT BE MICHAUD A IN ADDITION TO THE ONGOING DIAGNOSIS OF 1. DIABETES MELLITUS 2. CONGESTIVE HEART FAILURE 3. RENAL INSUFFICIENCY, HEMOGLOBIN HAS DROPPED DOWN TO 6.9 FOR WHICH SHE IS RECEIVING THE BLOOD TRANSFUSION BMP REVEALS GFR OF 27, BUN OF 99 THOUGH NORMAL ELECTROLYTES Review of Systems Review of Systems: All systems reviewed & are unremarkable except as noted in HPI and below Exam Narrative: Exam Narrative: EXAMINATION REVEALS HIM TO BE AWAKE ALERT ORIENTED X3 IN NO OBVIOUS ACUTE DISTRESS RECEIVING A BLOOD TRANSFUSION HEAD NORMOCEPHALIC WITH NO CRANIAL BRUIT, EAR NOSE THROAT EXAMINATION NORMAL, HEART REGULAR WITH NO MURMUR, LUNGS CLEAR TO AUSCULTATION WITH NO CREPITATIONS OR RHONCHI, FORTINO SOFT WITH NO ORGANOMEGALY, LEFT BKA REMAINS HEALTHY, NEUROLOGICAL EXAMINATION REVEALED HIM TO BE AWAKE ALERT ORIENTED X3, SPEECH NOT DYSPHASIC NOT DYSARTHRIC NOT DYSPHONIC, PUPILS ROUND REGULAR FEELS THE VISION FULL EXTRAOCULAR MUSCLE FULL FACE SYMMETRICAL TONGUE MIDLINE MOTOR EXAMINATION REVEALED HIM TO HAVE DECREASED STRENGTH WITH THE SENSORY EXAMINATION ABNORMAL DISTALLY BECAUSE OF THE UNDERLYING DIABETES MELLITUS Objective Data Vital Signs Vital Signs: Vital Signs - 24 hr 06/10/20 13:35 06/10/20 14:00 06/10/20 20:12 Temperature 36.4 C L Pulse Rate 68 64 68 Respiratory Rate 20 Blood Pressure 134/63 121/51 L Pulse Oximetry 91 98 06/10/20 20:17 06/11/20 04:55 06/11/20 08:41 Temperature 36.3 C L 36.3 C L Pulse Rate 65 55 L 55 L Respiratory Rate 18 20 Blood Pressure 129/57 L 113/60 Pulse Oximetry 99 99 Intake/Output Intake/Output: Intake & Output 06/08/20 06/09/20 06/10/20 06/11/20 23:59 23:59 23:59 23:59 Intake Total 480 390 720 480 Balance 480 390 720 480 Meds/Results Medications: Active Medications Generic Name Dose Route Start Last Admin Trade Name Freq PRN Reason Stop Dose Admin Acetaminophen 1,000 mg 06/01/20 20:59 06/02/20 10:19 Tylenol Tablet PO 1,000 mg Q6H PRN Administration Pain (Scale Score 1-3) Hydrocodone Bitart/Acetaminophen 1 tab 06/02/20 11:18 10/07/20 09:42 Hydrocodone/Acetaminophen (*Crx) 5-325 Mg Tablet PO 1 tab Q6H PRN Administration Pain Rated 4-6 Hydrocodone Bitart/Acetaminophen 2 tab 06/02/20 11:18 06/04/20 11:46 Hydrocodone/Acetaminophen (*Crx) 5-325 Mg Tablet PO 2 tab Q6H PRN Administration Pain Rated 7-10 Amlodipine Besylate 5 mg 06/02/20 09:00 06/11/20 08:39 Norvasc PO 5 mg DAILY [facility] Administration Aspirin 81 mg 06/02/20 09:00 06/11/20 08:39 Aspirin Ec PO 81 mg DAILY [facility] Administration Atorvastatin Calcium 40 mg 06/01/20 21:40 06/10/20 20:13 Lipitor PO 40 mg HS [facility] Administration Carvedilol 12.5 mg 06/08/20 09:00 06/11/20 08:41 Coreg PO 12.5 mg Q12HR [facility] Administration Cholestyramine Resin 4 gm 06/02/20 11:00 06/11/20 12:16 Questran Light Packet PO 4 gm 1100,1900 [facility] Administration Dextrose 12.5 gm 06/01/20 20:58 Dextrose 50% Syringe IV PUSH PRN PRN Hypoglycemia Protocol Epoetin Bradford-epbx 10,000 units 06/07/20 12:00 06/11/20 12:17 Retacrit SUB-Q 10,000 units TuThSa@1200 [facility] Administration Fenofibrate 48 mg 06/02/20 09:00 06/11/20 08:40 Tricor PO 07/03/20 09:01 48 mg DAILY [facility] Administration Ferrous Sulfate 324 mg 06/02/20 08:00 06/11/20 08:39 Ferrous Sulfate PO 324 mg DAILY@0800 [facility] Administration Fish Oil 1 gm 06/02/20 12:00 06/11/20 12:16 Lovaza PO 1 gm DAILY@1200 [facility] Administration Furosemide 40 mg 06/02/20 09:00 06/11/20 08:39 Lasix Tablet PO 40 mg BID [facility]OR Administration Gabapentin 300 mg 06/02/20 09:00 06/11/20 12:17 Neurontin PO 300 mg TID [facility]AD[facility] Administration Glucagon 1 mg 06/01/20 20:58 Glucagon For Inj IM PRN PRN Hypoglycemia Protocol Glucose 15 gm 06/01/20 20:58 Glutos
--- NOTE | 2020-06-11 13:20 | P.PNNP_ITS ---
Progress Note: A&P Assessment and Plan (1) Chronic kidney disease, stage IV (severe): Code(s): N18.4 - Chronic kidney disease, stage 4 (severe) Status: Acute Assessment and Plan: * baseline creatinine runs ~ 2.1 - 2.6mg/dl * multifactorial etiology: - depressed ejection fraction/cardiomyopathy (making him prone to prerenal azotemia) - necessity of diuretics to maintain volume status - diabetes - hypertesnion - peripheral vascular disease * continue supportive therapy * creatinine mayte a little bit to 2.5. Will check it again on Saturday. (2) Status post below-knee amputation of left lower extremity: Code(s): Z89.512 - Acquired absence of left leg below knee Status: Acute Assessment and Plan: * due to non-salvageable left foot/leg gangrene * local wound care * continue aggressive PT/OT/rehab (3) Chronic combined systolic and diastolic heart failure: Code(s): I50.42 - Chronic combined systolic (congestive) and diastolic (congestive) heart failure Status: Acute Assessment and Plan: * appears compensated at this time * He does have a little bit of swelling. * follows with Dr. Gee as an outpatient - will consult for further recommendations * He has some swelling. On lasix bid. He is on amlodipine. * Consider stopping amlodipine and using Luiz inhibitors instead. We will see how his creatinine does over the weekend. (4) Hypertension: Code(s): I10 - Essential (primary) hypertension Status: Acute Assessment and Plan: * bp is good this morning (5) Anemia: Code(s): D64.9 - Anemia, unspecified Status: Acute Assessment and Plan: * likely due to recent operative intervention and CKD * hemoglobin down a little bit today. He is going to get a blood transfusion. * Check iron levels. Change to IV if low. * He is on EPO (6) Diabetes mellitus with multiple complications: Code(s): E11.8 - Type 2 diabetes mellitus with unspecified complications Status: Acute Assessment and Plan: * follow accuchecks * on Lantus Subjective Date/time seen: 06/11/20 13:20 Interval history: Patient feels okay. he had a colonoscopy to evaluate his diarrhea. They found diverticulosis, polyps, internal hemorrhoids. lying in bed. He is comfortable. He is eating some lunch. no sob or cp Review of Systems Cardiovascular: Cardiovascular: Reports no additional cardiovascular complaints Respiratory: Respiratory: Reports no additional respiratory complaints Gastrointestinal: Gastrointestinal: Reports no additional gastrointestinal complaints Genitourinary: Genitourinary: Reports no additional male genitourinary complaints Exam Narrative: Exam Narrative: General: WD/WN male in NAD Heart: normal S1 and S2; no rub Lungs: clear bilaterally to auscultation Abdomen: soft, nontender, nondistended, positive bowel sounds Extremities: One to2+ edema in the right lower extremity. Skin: no rash Or subcu nodules Objective Data Vital Signs Vital Signs: Vital Signs - 24 hr 06/10/20 13:35 06/10/20 14:00 06/10/20 20:12 Temperature 36.4 C L Pulse Rate 68 64 68 Respiratory Rate 20 Blood Pressure 134/63 121/51 L Pulse Oximetry 91 98 06/10/20 20:17 06/11/20 04:55
--- NOTE | 2020-06-11 13:20 | PM.PNNEP ---
Progress Note: A&P Assessment and Plan (1) Chronic kidney disease, stage IV (severe): Code(s): N18.4 - Chronic kidney disease, stage 4 (severe) Status: Acute Assessment and Plan: baseline creatinine runs ~ 2.1 - 2.6mg/dl multifactorial etiology: - depressed ejection fraction/cardiomyopathy (making him prone to prerenal azotemia) - necessity of diuretics to maintain volume status - diabetes - hypertesnion - peripheral vascular disease continue supportive therapy creatinine mayte a little bit to 2.5. Will check it again on Saturday. (2) Status post below-knee amputation of left lower extremity: Code(s): Z89.512 - Acquired absence of left leg below knee Status: Acute Assessment and Plan: due to non-salvageable left foot/leg gangrene local wound care continue aggressive PT/OT/rehab (3) Chronic combined systolic and diastolic heart failure: Code(s): I50.42 - Chronic combined systolic (congestive) and diastolic (congestive) heart failure Status: Acute Assessment and Plan: appears compensated at this time He does have a little bit of swelling. follows with Dr. Gee as an outpatient - will consult for further recommendations He has some swelling. On lasix bid. He is on amlodipine. Consider stopping amlodipine and using Luiz inhibitors instead. We will see how his creatinine does over the weekend. (4) Hypertension: Code(s): I10 - Essential (primary) hypertension Status: Acute Assessment and Plan: bp is good this morning (5) Anemia: Code(s): D64.9 - Anemia, unspecified Status: Acute Assessment and Plan: likely due to recent operative intervention and CKD hemoglobin down a little bit today. He is going to get a blood transfusion. Check iron levels. Change to IV if low. He is on EPO (6) Diabetes mellitus with multiple complications: Code(s): E11.8 - Type 2 diabetes mellitus with unspecified complications Status: Acute Assessment and Plan: follow accuchecks on Lantus Subjective Date/time seen: 06/11/20 13:20 Interval history: Patient feels okay. he had a colonoscopy to evaluate his diarrhea. They found diverticulosis, polyps, internal hemorrhoids. lying in bed. He is comfortable. He is eating some lunch. no sob or cp Review of Systems Cardiovascular: Cardiovascular: Reports no additional cardiovascular complaints Respiratory: Respiratory: Reports no additional respiratory complaints Gastrointestinal: Gastrointestinal: Reports no additional gastrointestinal complaints Genitourinary: Genitourinary: Reports no additional male genitourinary complaints Exam Narrative: Exam Narrative: General: WD/WN male in NAD Heart: normal S1 and S2; no rub Lungs: clear bilaterally to auscultation Abdomen: soft, nontender, nondistended, positive bowel sounds Extremities: One to2+ edema in the right lower extremity. Skin: no rash Or subcu nodules Objective Data Vital Signs Vital Signs: Vital Signs - 24 hr 06/10/20 13:35 06/10/20 14:00 06/10/20 20:12 Temperature 36.4 C L Pulse Rate 68 64 68 Respiratory Rate 20 Blood Pressure 134/63 121/51 L Pulse Oximetry 91 98 06/10/20 20:17 06/11/20 04:55 06/11/20 08:41 Temperature 36.3 C L 36.3 C L Pulse Rate 65 55 L 55 L Respiratory Rate 18 20 Blood Pressure 129/57 L 113/60 Pulse Oximetry 99 99 Intake/Output Intake/Output: Intake & Output 06/08/20 06/09/20 06/10/20 06/11/20 23:59 23:59 23:59 23:59 Intake Total 480 390 720 480 Balance 480 390 720 480 Meds/Results Medications: Active Medications Generic Name Dose Route Start Last Admin Trade Name Freq PRN Reason Stop Dose Admin Acetaminophen 1,000 mg 06/01/20 20:59 06/02/20 10:19 Tylenol Tablet PO 1,000 mg Q6H PRN Administration Pain (Scale Score 1-3) Hydrocodone Bitart
--- NOTE | 2020-06-11 16:03 | PCPTNOTE ---
The patient treatment was not able to be completed on 06-11-2020 due to R.N. advised to OT not to see patient due to receiving unit of blood. Patient missed 30 minutes of physical therapy this date. Will plan to continue treatment per plan of care.
[2020-06-11 17:21] LABS: Glucose Point of Care 159 (65-105)
[2020-06-11 20:16] LABS: Glucose Point of Care 174 (65-105)
[2020-06-11] MEDS: ATORVASTATIN 40 MG TABLET PO (21:03)
[2020-06-11] MEDS: INSULIN GLARGINE (*BKC) 100 UNITS/ML 8 UNITS SUB-Q (21:06)
[2020-06-12] VITALS (9 sets, daily range): BP systolic 124–142; BP diastolic 56–62; PULSE 63–72; RESP 18–26; TEMP 36.4–37.1; O2SAT 96–100; BMI 10.0
[2020-06-12] MEDS: HEPARIN SODIUM 5,000 UNITS/ML VIAL 5000 UNITS SUB-Q ×3 (06:06→21:09)
[2020-06-12 06:21] LABS: Hematocrit 25.1 % (42.0-52.0); Hemoglobin 7.8 g/dL (14.0-18.0); Mean Corpuscular HGB Conc 31.1 g/dl (32-36); Mean Corpuscular Hemoglobin 27.9 pg (26-34); Mean Corpuscular Volume 89.6 fl (80-100); Mean Platelet Volume 11.1 fl (7.4-10.4); Platelet Count Result 285 k/mm3 (150-375); Red Cell Distribution Width 18.6 % (11.5-14.5); White Blood Count 8.1 K/mm3 (4.5-10.0)
[2020-06-12 06:56] LABS: Glucose Point of Care 126 (65-105)
[2020-06-12] MEDS: carvediloL 12.5 MG TABLET PO ×2 (08:37→21:08)
[2020-06-12] MEDS: GABAPENTIN 300 MG CAPSULE PO ×3 (08:37→16:46)
[2020-06-12] MEDS: FERROUS SULFATE 324 MG TABLET PO (08:37)
[2020-06-12] MEDS: FENOFIBRATE,MICRONIZED 48 MG TABLET PO (08:37)
[2020-06-12] MEDS: amLODIPine BESYLATE 5 MG TABLET PO (08:37)
[2020-06-12] MEDS: FUROSEMIDE 40 MG TABLET PO ×2 (08:37→16:46)
[2020-06-12] MEDS: ASPIRIN 81 MG ENTERIC TABLET PO (08:37)
[2020-06-12 09:02] LABS: IFOB Positive Control Positive; Immunochemical Fecal Occult Bl Negative (N)
[2020-06-12] MEDS: CHOLECALCIFEROL 1,000 UNITS TABLET 2000 UNITS PO (11:55)
[2020-06-12] MEDS: MULTIVITAMINS THERAPEUTIC TAB (*BKC) 1 TABLET PO (11:55)
[2020-06-12] MEDS: CHOLESTYRAMINE LIGHT 4 GM POWD.PACK PO ×2 (11:55→21:08)
[2020-06-12] MEDS: OMEGA 3 POLYUNSAT FATTY ACIDS 1 GM CAP PO (11:55)
[2020-06-12 13:35] LABS: NT Pro B Type Natriuretic Pept 24100 PG/ML (5-100)
--- NOTE | 2020-06-12 15:17 | PCPTNOTE ---
The patient treatment was not able to be completed on 06-12-2020 due to R.N. advised to see patient in bed able to perform lower extremity exercises to patient tolerance. Patient missed 30 minutes of physical therapy session this date. Will plan to continue treatment per plan of care.
--- NOTE | 2020-06-12 15:19 | PC.NURSE ---
called Dr Gee to update regarding patient condition. received order to give Laxix 40 mg IVP now. will continue to monitor patient.
[2020-06-12] MEDS: FUROSEMIDE INJ 40 MG/4 ML VIAL IV PUSH (15:33)
--- NOTE | 2020-06-12 18:19 | PC.NURSE ---
patient resting in bed at this time wearing O2 at 2L per nasal cannula. Patient respirations have shown improvement at this time. Patient states he is feeling better but does feel like he has ran a marathon. Patient continues to have edema present to left thigh area. Increased edema first noted to the upper thigh when turning and repositioning patient with another staff member and hand print was noted to the area. Kiwi splint was removed from left stump to check skin for edema as well. area looks well at this time. kiwi splint was reapplied. will continue to monitor.
[2020-06-12] MEDS: ATORVASTATIN 40 MG TABLET PO (21:08)
[2020-06-12] MEDS: INSULIN GLARGINE (*BKC) 100 UNITS/ML 8 UNITS SUB-Q (21:12)
[2020-06-12 21:16] LABS: Glucose Point of Care 168 (65-105)
[2020-06-13 05:05] LABS: Albumin Level 2.7 g/dL (3.5-5.1); Anion Gap 8 mmol/L (8-16); Blood Urea Nitrogen 112 mg/dL (9-20); Calcium 8.2 mg/dL (8.4-10.2); Carbon Dioxide 21 mmol/L (22-30); Chloride 108 mmol/L (98-107); Estimated CRCL calculation 36 ml/min; Estimated Glomerular Filt Rate 23; Glucose 129 mg/dL (75-110); Phosphorus 6.4 mg/dL (2.5-4.5); Potassium 5.3 mmol/L (3.4-5.0); Sodium 137 mmol/L (137-145)
[2020-06-13] MEDS: HEPARIN SODIUM 5,000 UNITS/ML VIAL 5000 UNITS SUB-Q ×3 (05:20→20:08)
[2020-06-13] MEDS: HYDROcodone/acetaminophen (*CRX) 5-325 MG TABLET 2 TAB PO (05:27)
[2020-06-13 06:00] VITALS: BP 124/57; PULSE 63; RESP 16; TEMP 36.4; O2SAT 100
[2020-06-13 06:40] LABS: Glucose Point of Care 119 (65-105)
--- NOTE | 2020-06-13 08:29 | PM.PNCARD ---
Progress Note: A&P Assessment and Plan (1) Chronic combined systolic and diastolic heart failure: Code(s): I50.42 - Chronic combined systolic (congestive) and diastolic (congestive) heart failure Status: Acute Assessment and Plan: On Coreg. Intolerant of Entresto due to worsening kidney function, Valsartan due to hyperkalemia. Doubt he would tolerate babak inhibitor for same reason as Valsartan. Echo shows moderate LV systolic dysfunction with EF 35-40%. No longer needs Life Vest or ICD to prevent sudden cardiac arrest. (2) CKD (chronic kidney disease) stage 3, GFR 30-59 ml/min: Code(s): N18.3 - Chronic kidney disease, stage 3 (moderate) Status: Chronic Assessment and Plan: Potassium up to 5.3 today and Cr 2.5. Monitor potassium and renal function. Nephrology following. (3) CAD (coronary artery disease), autologous vein bypass graft: Code(s): I25.810 - Atherosclerosis of coronary artery bypass graft(s) without angina pectoris Status: Acute (4) Elevated lipids: Code(s): E78.5 - Hyperlipidemia, unspecified Status: Acute (5) Anemia: Code(s): D64.9 - Anemia, unspecified Status: Acute Assessment and Plan: Received blood transfusions on 06/11/20. Developed sob from it due to volume overload. Given Lasix 40 mg IVx 1 on 06/12/20. In future, if given blood transfusions, would given Lasix 40 mg IV immediately after. (6) Hypertension: Code(s): I10 - Essential (primary) hypertension Status: Acute Assessment and Plan: Stable. On Amlodipine. Increase Coreg 12.5 mg BID. Discontinue Valsartan as potassium increased on it. He did not tolerate Entresto due to hyperkalemia and worsening kidney function. Will sign off. Please call me with any questions or concerns. F/U with me in next 1-2 months. Subjective Date/time seen: 06/13/20 08:29 Denies chest pain or sob currently. Exam Const: General: comfortable and no acute distress Neck: Neck: no JVD Carotids: no bruits Resp: Auscultation: clear to auscultation bilaterally, no crackles, no rales, no rhonchi and no wheezes Cardio: Rate: regular rate Rhythm: regular rhythm Heart sounds: no murmurs GI: Inspection: non-distended Neuro: Speech: normal speech Extrem: Right lower extremity: edema (Trace edema of RLE) Other: Below knee amputation. Objective Data Vital Signs Vital Signs: Vital Signs - 24 hr 06/12/20 08:37 06/12/20 11:03 06/12/20 13:48 Temperature Pulse Rate 68 70 Pulse Rate [With Activity During Therapy Session] Respiratory Rate 26 H 24 H Blood Pressure Pulse Oximetry 99 99 Pulse Oximetry [With Activity During Therapy Session] 06/12/20 14:00 06/12/20 14:35 06/12/20 20:00 Temperature 98.6 F Pulse Rate 72 70 63 Pulse Rate [With Activity During Therapy Session] 70 Respiratory Rate 24 H 22 H Blood Pressure 142/62 H Pulse Oximetry 97 99 100 Pulse Oximetry [With Activity During Therapy Session] 99 06/12/20 21:08 06/12/20 21:27 06/13/20 06:00 Temperature 97.5 F L 97.5 F L Pulse Rate 63 63 63 Pulse Rate [With Activity During Therapy Session] Respiratory Rate 22 H 16 Blood Pressure 124/57 L 124/57 L Pulse Oximetry 100 100 Pulse Oximetry [With Activity During Therapy Session] Intake/Output Intake/Output: Intake & Output 06/10/20 06/11/20 06/12/20 06/13/20 23:59 23:59 23:59 23:59 Intake Total 720 1310 1200 Balance 720 1310 1200 Meds/Results Medications: Active Medications Generic Name Dose Route Start Last Admin Trade Name Freq PRN Reason Stop Dose Admin Acetaminophen 1,000 mg 06/01/20 20:59 06/02/20 10:19 Tylenol Tablet PO 1,000 mg Q6H PRN Administration Pain (Scale Score 1-3) Hydrocodone Bitart/Acetaminophen 1 tab 06/02/20 11:18 06/08/20 09:42 Hydrocodone/Acetaminophen (*Crx) 5-325 Mg Tablet PO 1 tab Q6H PRN Administration Pain Rated 4-6 Hydrocodone Bitart/Acetaminophen
[2020-06-13 08:34] VITALS: PULSE 63
[2020-06-13] MEDS: amLODIPine BESYLATE 5 MG TABLET PO (08:34)
[2020-06-13] MEDS: carvediloL 12.5 MG TABLET PO ×2 (08:34→20:08)
[2020-06-13] MEDS: FERROUS SULFATE 324 MG TABLET PO (08:34)
[2020-06-13] MEDS: ASPIRIN 81 MG ENTERIC TABLET PO (08:34)
[2020-06-13] MEDS: FENOFIBRATE,MICRONIZED 48 MG TABLET PO (08:36)
[2020-06-13] MEDS: GABAPENTIN 300 MG CAPSULE PO ×3 (08:37→17:29)
[2020-06-13] MEDS: FUROSEMIDE 40 MG TABLET PO ×2 (08:37→17:29)
--- NOTE | 2020-06-13 09:44 | WPDNEURORHBP ---
Subjective Date/time seen: 06/13/20 09:44 55 YEARS OLD ADMITTED TO THE REHAB FLOOR FOR LEFT BKA IN ADDITION TO DIABETES MELLITUS, CONGESTIVE HEART FAILURE, RENAL INSUFFICIENCY AND MOST RECENTLY ANEMIA FOR WHICH HE RECEIVED THE BLOOD TRANSFUSIONS . HEMOGLOBIN AT PRESENT IS 7.8, BMP WITH POTASSIUM 5.3, BUN 112 ,CREATININE 2.8, [place] 23 [place] [address], SEEN BY THE NUCLEAR RADIOLOGIST SUGGESTED TO GIVE HIM LASIX 40 MG WHENEVER HE RECEIVED THE BLOOD TRANSFUSION IMMEDIATELY AFTER AN INCREASE HIS COREG 12.5 MG TWICE A DAY, DISCONTINUED WALL START AN THE 3 INCREASE THE POTASSIUM Review of Systems Review of Systems: All systems reviewed & are unremarkable except as noted in HPI and below Exam Narrative: Exam Narrative: ON EXAMINATION TODAY HE IS AWAKE ALERT IN NO OBVIOUS ACUTE DISTRESS HIS SPEECH NOR DYSPHASIC NO DYSARTHRIC NOR DYSPHONIC HEART REGULAR LUNGS CLEAR ABDOMEN IS SOFT AND NEUROLOGICAL EXAMINATION REVEALED HIM TO HAVE NO FOCAL NEUROLOGICAL DEFICIT HE DOES HAVE 2+ EDEMA IN THE RIGHT LOWER EXTREMITY Objective Data Vital Signs Vital Signs: Vital Signs - 24 hr 06/12/20 11:03 06/12/20 13:48 06/12/20 14:00 Temperature 37.0 C Pulse Rate 70 72 Pulse Rate [With Activity During Therapy Session] Respiratory Rate 26 H 24 H 24 H Blood Pressure 142/62 H Pulse Oximetry 99 99 97 Pulse Oximetry [With Activity During Therapy Session] 06/12/20 14:35 06/12/20 20:00 06/12/20 21:08 Temperature Pulse Rate 70 63 63 Pulse Rate [With Activity During Therapy Session] 70 Respiratory Rate 22 H Blood Pressure Pulse Oximetry 99 100 Pulse Oximetry [With Activity During Therapy Session] 99 06/12/20 21:27 06/13/20 06:00 06/13/20 08:34 Temperature 36.4 C L 36.4 C L Pulse Rate 63 63 63 Pulse Rate [With Activity During Therapy Session] Respiratory Rate 22 H 16 Blood Pressure 124/57 L 124/57 L Pulse Oximetry 100 100 Pulse Oximetry [With Activity During Therapy Session] Intake/Output Intake/Output: Intake & Output 06/10/20 06/11/20 06/12/20 06/13/20 23:59 23:59 23:59 23:59 Intake Total 720 1310 1200 240 Balance 720 1310 1200 240 Meds/Results Medications: Active Medications Generic Name Dose Route Start Last Admin Trade Name Freq PRN Reason Stop Dose Admin Acetaminophen 1,000 mg 06/01/20 20:59 06/02/20 10:19 Tylenol Tablet PO 1,000 mg Q6H PRN Administration Pain (Scale Score 1-3) Hydrocodone Bitart/Acetaminophen 1 tab 06/02/20 11:18 06/08/20 09:42 Hydrocodone/Acetaminophen (*Crx) 5-325 Mg Tablet PO 1 tab Q6H PRN Administration Pain Rated 4-6 Hydrocodone Bitart/Acetaminophen 2 tab 06/02/20 11:18 06/13/20 05:27 Hydrocodone/Acetaminophen (*Crx) 5-325 Mg Tablet PO 2 tab Q6H PRN Administration Pain Rated 7-10 Amlodipine Besylate 5 mg 06/02/20 09:00 06/13/20 08:34 Norvasc PO 5 mg DAILY [facility]VADOR Administration Aspirin 81 mg 06/02/20 09:00 06/13/20 08:34 Aspirin Ec PO 81 mg DAILY [facility]AD[facility] Administration Atorvastatin Calcium 40 mg 06/01/20 21:40 06/12/20 21:08 Lipitor PO 40 mg HS [facility]VADOR Administration Carvedilol 12.5 mg 06/08/20 09:00 06/13/20 08:34 Coreg PO 12.5 mg Q12HR [facility]ADOR Administration Cholestyramine Resin 4 gm 06/02/20 11:00 06/12/20 21:08 Questran Light Packet PO 4 gm 1100,1900 [facility]OR Administration Dextrose 12.5 gm 06/01/20 20:58 Dextrose 50% Syringe IV PUSH PRN PRN Hypoglycemia Protocol Epoetin Bradford-epbx 10,000 units 06/07/20 12:00 06/11/20 12:17 Retacrit SUB-Q 10,000 units TuThSa@1200 [facility] Administration Fenofibrate 48 mg 06/02/20 09:00 06/13/20 08:36 Tricor PO 07/03/20 09:01 48 mg DAILY SAL[facility]ADOR Administration Ferrous Sulfate 324 mg 06/02/20 08:00 06/13/20 08:34 Ferrous Sulfate PO 324 mg DAILY@0800 [facility] Administration Fish Oil 1 gm 06/02/20 12:00 06/12/20 11:55 Lovaza PO 1 gm DAILY@1200 [facility]OR Administration Furosemide 40 mg
[2020-06-13 10:26] LABS: Glucose Point of Care 133 (65-105)
[2020-06-13 11:00] VITALS: BP 115/63; PULSE 55; O2SAT 100; BMI 10.0
[2020-06-13] MEDS: MULTIVITAMINS THERAPEUTIC TAB (*BKC) 1 TABLET PO (12:28)
[2020-06-13] MEDS: CHOLECALCIFEROL 1,000 UNITS TABLET 2000 UNITS PO (12:28)
[2020-06-13] MEDS: OMEGA 3 POLYUNSAT FATTY ACIDS 1 GM CAP PO (12:28)
[2020-06-13] MEDS: CHOLESTYRAMINE LIGHT 4 GM POWD.PACK PO ×2 (12:28→20:08)
[2020-06-13 14:00] VITALS: BP 110/54; PULSE 56; RESP 18; TEMP 36.2; O2SAT 96
[2020-06-13 17:18] LABS: Glucose Point of Care 148 (65-105)
--- NOTE | 2020-06-13 18:35 | PM.PNNEP ---
Progress Note: A&P Assessment and Plan (1) Chronic kidney disease, stage IV (severe): Code(s): N18.4 - Chronic kidney disease, stage 4 (severe) Status: Acute Assessment and Plan: baseline creatinine runs ~ 2.1 - 2.6mg/dl multifactorial etiology: - depressed ejection fraction/cardiomyopathy (making him prone to prerenal azotemia) - necessity of diuretics to maintain volume status - diabetes - hypertesnion - peripheral vascular disease continue supportive therapy creatinine up a bit with high BUN today -- due to diuretics???; trial of holding for a few days. (2) Status post below-knee amputation of left lower extremity: Code(s): Z89.512 - Acquired absence of left leg below knee Status: Acute Assessment and Plan: due to non-salvageable left foot/leg gangrene local wound care continue aggressive PT/OT/rehab (3) Chronic combined systolic and diastolic heart failure: Code(s): I50.42 - Chronic combined systolic (congestive) and diastolic (congestive) heart failure Status: Acute Assessment and Plan: appears compensated at this time has a little bit of swelling. follows with Dr. Gee who is following now on oral diuretics (4) Hypertension: Code(s): I10 - Essential (primary) hypertension Status: Acute Assessment and Plan: BP stable follow hemodynamics (5) Anemia: Code(s): D64.9 - Anemia, unspecified Status: Acute Assessment and Plan: likely due to recent operative intervention and CKD hemoglobin down a little bit today. He is going to get a blood transfusion. getting Epogen (6) Diabetes mellitus with multiple complications: Code(s): E11.8 - Type 2 diabetes mellitus with unspecified complications Status: Acute Assessment and Plan: follow accuchecks on Lantus Will continue to follow Subjective Date/time seen: 06/13/20 18:35 Eating dinner at the time of my visit; chart reviewed since last seen; no distress noted, AM labs reviewed. Exam Narrative: Exam Narrative: General: WD/WN male in NAD Heart: normal S1 and S2; no rub Lungs: clear bilaterally to auscultation Abdomen: soft, nontender, nondistended, positive bowel sounds Extremities: 1 - 2+ edema in the right lower extremity. Skin: no rash Or subcu nodules Objective Data Vital Signs Vital Signs: Vital Signs Temp Pulse Resp BP Pulse Ox 06/13/20 14:00 36.2 C L 56 L 18 110/54 L 96 06/13/20 11:00 55 L 115/63 100 06/13/20 08:34 63 06/13/20 06:00 36.4 C L 63 16 124/57 L 100 06/12/20 21:27 36.4 C L 63 22 H 124/57 L 100 06/12/20 21:08 63 06/12/20 20:00 63 22 H 100 Intake/Output Intake/Output: Intake & Output 06/10/20 06/11/20 06/12/20 06/13/20 23:59 23:59 23:59 23:59 Intake Total 720 1310 1200 480 Balance 720 1310 1200 480 Meds/Results Medications: Active Medications Generic Name Dose Route Start Last Admin Trade Name Freq PRN Reason Stop Dose Admin Acetaminophen 1,000 mg 06/01/20 20:59 06/02/20 10:19 Tylenol Tablet PO 1,000 mg Q6H PRN Administration Pain (Scale Score 1-3) Hydrocodone Bitart/Acetaminophen 1 tab 06/02/20 11:18 06/08/20 09:42 Hydrocodone/Acetaminophen (*Crx) 5-325 Mg Tablet PO 1 tab Q6H PRN Administration Pain Rated 4-6 Hydrocodone Bitart/Acetaminophen 2 tab 06/02/20 11:18 06/13/20 05:27 Hydrocodone/Acetaminophen (*Crx) 5-325 Mg Tablet PO 2 tab Q6H PRN Administration Pain Rated 7-10 Amlodipine Besylate 5 mg 06/02/20 09:00 06/13/20 08:34 Norvasc PO 5 mg DAILY SALVADOR Administration Aspirin 81 mg 06/02/20 09:00 06/13/20 08:34 Aspirin Ec PO 81 mg DAILY SALVADOR Administration Atorvastatin Calcium 40 mg 06/01/20 21:40 06/12/20 21:08 Lipitor PO 40 mg HS SALVADOR Administration Carvedilol 12.5 mg 06/08/20 09:00 06/13/20 08:34
[2020-06-13 20:08] VITALS: PULSE 62
[2020-06-13] MEDS: ATORVASTATIN 40 MG TABLET PO (20:08)
[2020-06-13] MEDS: INSULIN GLARGINE (*BKC) 100 UNITS/ML 8 UNITS SUB-Q (20:34)
[2020-06-13 20:47] LABS: Glucose Point of Care 158 (65-105)
[2020-06-13 22:00] VITALS: BP 143/85; PULSE 65; RESP 20; TEMP 36.2; O2SAT 100
[2020-06-14] VITALS (8 sets, daily range): BP systolic 114–149; BP diastolic 55–66; PULSE 55–80; RESP 18–20; TEMP 36.1–36.5; O2SAT 96–100
[2020-06-14] MEDS: HEPARIN SODIUM 5,000 UNITS/ML VIAL 5000 UNITS SUB-Q ×3 (05:12→20:11)
[2020-06-14 06:12] LABS: Glucose Point of Care 136 (65-105)
[2020-06-14] MEDS: carvediloL 12.5 MG TABLET PO ×2 (09:25→20:10)
[2020-06-14] MEDS: amLODIPine BESYLATE 5 MG TABLET PO (09:25)
[2020-06-14] MEDS: FERROUS SULFATE 324 MG TABLET PO (09:25)
[2020-06-14] MEDS: ASPIRIN 81 MG ENTERIC TABLET PO (09:25)
[2020-06-14] MEDS: GABAPENTIN 300 MG CAPSULE PO ×3 (09:26→17:31)
[2020-06-14] MEDS: FENOFIBRATE,MICRONIZED 48 MG TABLET PO (09:26)
[2020-06-14 10:06] LABS: Basophils Absolute Auto 0.1 K/mm3 (0.0-0.1); Basophils Percent Auto 0.7 % (0.2-1.2); Eosinophils Absolute Auto 0.4 K/mm3 (0-0.3); Eosinophils Percent Auto 5.2 % (0-4.4); Hematocrit 25.9 % (42.0-52.0); Immature Granulocyte Absolute 0.06 K/mm3 (0.00-0.031); Immature Granulocyte Percent A 0.7 % (0-0.5); Lymphocytes Absolute Auto 0.71 K/mm3 (0.9-3.2); Lymphocytes Percent Auto 8.7 % (18.3-44.2); Mean Corpuscular HGB Conc 30.9 g/dl (32-36); Mean Corpuscular Hemoglobin 27.7 pg (26-34); Mean Corpuscular Volume 89.6 fl (80-100); Mean Platelet Volume 11.1 fl (7.4-10.4); Monocytes Percent Auto 12.1 % (2.6-8.5); Neutrophils Absolute Auto 5.9 K/mm3 (1.3-6.7); Neutrophils Percent Auto 72.6 % (45.5-73.1); Platelet Count Result 294 k/mm3 (150-375); Red Blood Count 2.89 M/mm3 (4.6-6.20); Red Cell Distribution Width 18.6 % (11.5-14.5); White Blood Count 8.2 K/mm3 (4.5-10.0)
[2020-06-14 10:19] LABS: Anion Gap 9 mmol/L (8-16); Blood Urea Nitrogen 115 mg/dL (9-20); Calcium 8.4 mg/dL (8.4-10.2); Carbon Dioxide 20 mmol/L (22-30); Chloride 109 mmol/L (98-107); Estimated CRCL calculation 33 ml/min; Estimated Glomerular Filt Rate 22; Glucose 114 mg/dL (75-110); Potassium 5.3 mmol/L (3.4-5.0); Sodium 138 mmol/L (137-145)
--- NOTE | 2020-06-14 10:30 | PC.NURSE ---
Talked with Dr. Gee at approximately 10:00 this morning regarding patient's current medical status. Dr. Gee was informed that the patient was to be discharged tomorrow, July 16, 2020. Dr. Gee stated he had no concerns with discharge and asks that the patient follow-up with him in 1 - 2 months after his discharge from [facility].
[2020-06-14] MEDS: CHOLESTYRAMINE LIGHT 4 GM POWD.PACK PO ×2 (12:15→20:10)
--- NOTE | 2020-06-14 12:44 | WPDNEURORHBP ---
Subjective Date/time seen: 06/14/20 12:44 Interval history: this 55-year-old gentleman is here after having had a left [id number] amputation related to multiple wound infections in the lower extremity he also has chronic combined systolic and diastolic congestive heart failure seen by the mash filter cloth changer he also has chronic kidney disease stage 4 followed by the qualitative researcher today the nurses noted some reddish nurse at the right heel which is his good leg although still weak and the lateral aspect of the right foot for which I is requested the wound care nurse to look at it The patient's shortness of breath is much better today he is Baudilio is is receiving oxygen on a as needed basis no chest pain no shortness of breath no fever chills or sore throat Review of Systems Review of Systems: All systems reviewed & are unremarkable except as noted in HPI and below Exam Narrative: Exam Narrative: patient remains awake and alert will oriented times place and person has normal speech and language function Karen is a evidence of diabetic retinopathy diabetic neuropathy with significant weakness of both upper and lower extremities of course handicapped by the fact that he does have a left BKA The eye examination beside the retinopathy is fairly decent ENT examination is normal neck is supple lungs are clear to auscultation cardiovascular examination is negative abdomen. Not tender left BKA wound is clean and healthy with sutures still on the right foot reveals some ready Hogan at the right heel and also the lateral aspect of the sole of the right foot for which have os the wound care nurse to look at it hoping that the patient does not have beginning of the wound infection as he has had in the past for the left lower extremity Objective Data Vital Signs Vital Signs: Vital Signs - 24 hr 06/13/20 14:00 06/13/20 20:08 06/13/20 22:00 Temperature 36.2 C L 36.2 C L Pulse Rate 56 L 62 65 Respiratory Rate 18 20 Blood Pressure 110/54 L 143/85 H Pulse Oximetry 96 100 06/14/20 06:00 06/14/20 09:25 06/14/20 09:30 Temperature 36.1 C L Pulse Rate 55 L 58 L 62 Respiratory Rate 19 18 Blood Pressure 116/55 L Pulse Oximetry 100 100 Intake/Output Intake/Output: Intake & Output 06/11/20 06/12/20 06/13/20 06/14/20 23:59 23:59 23:59 23:59 Intake Total 1310 1200 720 240 Balance 1310 1200 720 240 Meds/Results Medications: Active Medications Generic Name Dose Route Start Last Admin Trade Name Saulo PRN Reason Stop Dose Admin Acetaminophen 1,000 mg 06/01/20 20:59 06/02/20 10:19 Tylenol Tablet PO 1,000 mg Q6H PRN Administration Pain (Scale Score 1-3) Hydrocodone Bitart/Acetaminophen 1 tab 06/02/20 11:18 06/08/20 09:42 Hydrocodone/Acetaminophen (*Crx) 5-325 Mg Tablet PO 1 tab Q6H PRN Administration Pain Rated 4-6 Hydrocodone Bitart/Acetaminophen 2 tab 06/02/20 11:18 06/13/20 05:27 Hydrocodone/Acetaminophen (*Crx) 5-325 Mg Tablet PO 2 tab Q6H PRN Administration Pain Rated 7-10 Amlodipine Besylate 5 mg 06/02/20 09:00 06/14/20 09:25 Norvasc PO 5 mg DAILY SALVADOR Administration Aspirin 81 mg 06/02/20 09:00 06/14/20 09:25 Aspirin Ec PO 81 mg DAILY SALVADOR Administration Atorvastatin Calcium 40 mg 06/01/20 21:40 06/13/20 20:08 Lipitor PO 40 mg HS SALVADOR Administration Carvedilol 12.5 mg 06/08/20 09:00 06/14/20 09:25 Coreg PO 12.5 mg Q12HR SALVADOR Administration Cholestyramine Resin 4 gm 06/02/20 11:00 06/14/20 12:15 Questran Light Packet PO 4 gm 1100,1900 SALVADOR Administration Dextrose 12.5 gm 06/01/20 20:58 Dextrose 50% Syringe IV PUSH PRN PRN Hypoglycemia Protocol Epoetin Bradford-epbx 10,000 units 06/07/20 12:00 06/11/20 12:17 Retacrit SUB-Q 10,000 units TuThSa@1200 SALVADOR Administration Fenofibrate 48 mg 06/02/20 09:00 06/14/20 09:26 Tricor PO 07/03/20 09:01 48 mg DAILY SALVADOR Administration Ferrous Sulfate
[2020-06-14 13:14] LABS: SARS-CoV-2 RNA PCR Negative
[2020-06-14] MEDS: MULTIVITAMINS THERAPEUTIC TAB (*BKC) 1 TABLET PO (13:36)
[2020-06-14] MEDS: CHOLECALCIFEROL 1,000 UNITS TABLET 2000 UNITS PO (13:36)
[2020-06-14] MEDS: OMEGA 3 POLYUNSAT FATTY ACIDS 1 GM CAP PO (13:37)
[2020-06-14] MEDS: EPOETIN ALFA-EPBX 10,000 UNITS/ML VIAL 10000 UNITS SUB-Q (13:40)
--- NOTE | 2020-06-14 16:46 | PC.NURSE ---
Addendum entered by Stephanie Tran RN 06/14/20 16:51: Dr. Chen's office number is [phone] Original Note: Talked to Dr. Chen, patient's surgeon for [facility]. Dr. Chen requested a picture of wound be emailed to him at [email or web address] for evaluation of suture/staple removal. Wound picture was taken at 1640 and emailed to Keri Perdue for her to e-mail Dr Chen. Dr. Chen will evaluate wound and add instructions for removal which will be followed here or after discharge to [facility].
[2020-06-14] MEDS: ATORVASTATIN 40 MG TABLET PO (20:10)
[2020-06-14] MEDS: INSULIN GLARGINE (*BKC) 100 UNITS/ML 8 UNITS SUB-Q (20:13)
[2020-06-14 20:24] LABS: Glucose Point of Care 184 (65-105)
[2020-06-15 05:02] VITALS: BP 125/61; PULSE 60; RESP 18; TEMP 36.5; O2SAT 97
[2020-06-15 05:25] LABS: Albumin Level 2.8 g/dL (3.5-5.1); Anion Gap 13 mmol/L (8-16); Carbon Dioxide 17 mmol/L (22-30); Chloride 110 mmol/L (98-107); Estimated CRCL calculation 33 ml/min; Estimated Glomerular Filt Rate 22; Glucose 146 mg/dL (75-110); Phosphorus 7.8 mg/dL (2.5-4.5); Potassium 5.5 mmol/L (3.4-5.0); Sodium 140 mmol/L (137-145)
[2020-06-15 05:49] LABS: Blood Urea Nitrogen 128 mg/dL (9-20)
[2020-06-15] MEDS: HEPARIN SODIUM 5,000 UNITS/ML VIAL 5000 UNITS SUB-Q ×3 (06:33→20:06)
[2020-06-15 06:44] LABS: Glucose Point of Care 148 (65-105)
--- NOTE | 2020-06-15 06:55 | PC.NURSE ---
call placed to Dr Sue regarding BMP results with potassium at 5.5 [address] 128[address] Sue requested Nephrology be called and updated. Nursing staff calling to update nephrology regarding labs. will continue to monitor.
[2020-06-15] MEDS: ASPIRIN 81 MG ENTERIC TABLET PO (09:29)
[2020-06-15 09:30] VITALS: PULSE 60
[2020-06-15] MEDS: FERROUS SULFATE 324 MG TABLET PO (09:30)
[2020-06-15] MEDS: amLODIPine BESYLATE 5 MG TABLET PO (09:30)
[2020-06-15] MEDS: carvediloL 12.5 MG TABLET PO ×2 (09:30→20:07)
[2020-06-15] MEDS: FENOFIBRATE,MICRONIZED 48 MG TABLET PO (09:31)
[2020-06-15] MEDS: GABAPENTIN 300 MG CAPSULE PO ×3 (09:31→16:59)
--- NOTE | 2020-06-15 11:47 | PCOTNOTE ---
Attempted to see Patient for a short A.M. treatment session at this time. Patient is already eating lunch and speaking with the doctor at this time. Patient not available and declined at this time. Will try back at a later time.
[2020-06-15] MEDS: CHOLECALCIFEROL 1,000 UNITS TABLET 2000 UNITS PO (12:05)
[2020-06-15] MEDS: CHOLESTYRAMINE LIGHT 4 GM POWD.PACK PO ×2 (12:05→20:06)
[2020-06-15] MEDS: OMEGA 3 POLYUNSAT FATTY ACIDS 1 GM CAP PO (12:06)
[2020-06-15] MEDS: MULTIVITAMINS THERAPEUTIC TAB (*BKC) 1 TABLET PO (12:06)
[2020-06-15 14:00] VITALS: BP 139/61; PULSE 69; RESP 24; TEMP 36.3; O2SAT 99
--- NOTE | 2020-06-15 15:01 | WPDNEURORHBP ---
Subjective Date/time seen: 06/15/20 15:01 Interval history: this 55-year-old gentleman is here because of having had left BKA he has significant issues with side that which include the chronic kidney disease along with the combined systolic and diastolic congestive heart failure his laboratory data from the nephrology standpoint is not any better than yesterday in fact to a certain extent worse have requested to have a follow-up from the pad machine feeder to see whether we can discharge the patient or not in any event the patient denies any headache nausea vomiting chest pain shortness of breath fever chills sore throat his generalized weakness remained roughly about the same and as he has difficulty performing the physical therapy and a compression therapy because of the generalized weakness his TRICIA screen is negative aldolase is pending seek a B12 and folate are normal Review of Systems Review of Systems: All systems reviewed & are unremarkable except as noted in HPI and below Exam Narrative: Exam Narrative: patient is awake alert and well oriented not any distress weakness roughly remained the same evidence of peripheral neuropathy lower extremities equally involved with the upper extremities with depressed reflexes and sensory deficit along with the left BKA Overall eyes ear nose throat normal neck is supple no rigidity is noted lungs are clear to auscultation cardiovascular examination is negative with regular rate and rhythm extremities revealed left BKA Objective Data Vital Signs Vital Signs: Vital Signs - 24 hr 06/14/20 20:00 06/14/20 20:10 06/14/20 22:00 Temperature 36.5 C Pulse Rate 80 70 Respiratory Rate 20 Blood Pressure 114/58 L Pulse Oximetry 100 96 06/15/20 05:02 06/15/20 09:30 06/15/20 14:00 Temperature 36.5 C 36.3 C L Pulse Rate 60 60 69 Respiratory Rate 18 24 H Blood Pressure 125/61 139/61 Pulse Oximetry 97 99 Intake/Output Intake/Output: Intake & Output 06/12/20 06/13/20 06/14/20 06/15/20 23:59 23:59 23:59 23:59 Intake Total 1200 845 792 3253 Balance 1200 271 885 0226 Meds/Results Medications: Active Medications Generic Name Dose Route Start Last Admin Trade Name Freq PRN Reason Stop Dose Admin Acetaminophen 1,000 mg 06/01/20 20:59 06/02/20 10:19 Tylenol Tablet PO 1,000 mg Q6H PRN Administration Pain (Scale Score 1-3) Hydrocodone Bitart/Acetaminophen 1 tab 06/02/20 11:18 06/08/20 09:42 Hydrocodone/Acetaminophen (*Crx) 5-325 Mg Tablet PO 1 tab Q6H PRN Administration Pain Rated 4-6 Hydrocodone Bitart/Acetaminophen 2 tab 06/02/20 11:18 06/13/20 05:27 Hydrocodone/Acetaminophen (*Crx) 5-325 Mg Tablet PO 2 tab Q6H PRN Administration Pain Rated 7-10 Amlodipine Besylate 5 mg 06/02/20 09:00 06/15/20 09:30 Norvasc PO 5 mg DAILY SALVADOR Administration Aspirin 81 mg 06/02/20 09:00 06/15/20 09:29 Aspirin Ec PO 81 mg DAILY SALVADOR Administration Atorvastatin Calcium 40 mg 06/01/20 21:40 06/14/20 20:10 Lipitor PO 40 mg HS SALVADOR Administration Carvedilol 12.5 mg 06/08/20 09:00 06/15/20 09:30 Coreg PO 12.5 mg Q12HR SALVADOR Administration Cholestyramine Resin 4 gm 06/02/20 11:00 06/15/20 12:05 Questran Light Packet PO 4 gm 1100,1900 SALVADOR Administration Dextrose 12.5 gm 06/01/20 20:58 Dextrose 50% Syringe IV PUSH PRN PRN Hypoglycemia Protocol Epoetin Bradford-epbx 10,000 units 06/07/20 12:00 06/14/20 13:40 Retacrit SUB-Q 10,000 units TuThSa@1200 SALVADOR Administration Fenofibrate 48 mg 06/02/20 09:00 06/15/20 09:31 Tricor PO 07/03/20 09:01 48 mg DAILY SALVADOR Administration Ferrous Sulfate 324 mg 06/02/20 08:00 06/15/20 09:30 Ferrous Sulfate PO 324 mg DAILY@0800 SALVADOR Administration Fish Oil 1 gm 06/02/20 12:00 06/15/20 12:06 Lovaza PO 1 gm DAILY@1200 SALVADOR Administration Furosemide 40 mg 06/02/20 09:00 06/13/20 17:29 Furosemide 40 Mg Table
[2020-06-15 17:08] LABS: Glucose Point of Care 161 (65-105)
--- NOTE | 2020-06-15 17:53 | P.PNNP_ITS ---
Progress Note: A&P Assessment and Plan (1) NATAN (acute kidney injury): Code(s): N17.9 - Acute kidney failure, unspecified Status: Acute Assessment and Plan: * etiology?? * check urine electrolytes * check CXR -- if clear, consider IVFs trial * diuretics on hold at this time * check renal ultrasound (2) Chronic kidney disease, stage IV (severe): Code(s): N18.4 - Chronic kidney disease, stage 4 (severe) Status: Chronic Assessment and Plan: * baseline creatinine runs ~ 2.1 - 2.6mg/dl * multifactorial etiology: - depressed ejection fraction/cardiomyopathy (making him prone to prerenal azotemia) - necessity of diuretics to maintain volume status - diabetes - hypertesnion - peripheral vascular disease * continue supportive therapy * creatinine up a bit with high BUN today -- due to diuretics???; trial of holding for a few days. (3) Status post below-knee amputation of left lower extremity: Code(s): Z89.512 - Acquired absence of left leg below knee Status: Acute Assessment and Plan: * due to non-salvageable left foot/leg gangrene * local wound care * continue aggressive PT/OT/rehab (4) Chronic combined systolic and diastolic heart failure: Code(s): I50.42 - Chronic combined systolic (congestive) and diastolic (congestive) heart failure Status: Acute Assessment and Plan: * appears compensated at this time * has a little bit of swelling. * follows with Dr. Gee who is following now * on oral diuretics (5) Hypertension: Code(s): I10 - Essential (primary) hypertension Status: Acute Assessment and Plan: * BP stable * follow hemodynamics (6) Anemia: Code(s): D64.9 - Anemia, unspecified Status: Acute Assessment and Plan: * likely due to recent operative intervention and CKD * hemoglobin down a little bit today. He is going to get a blood transfusion. * getting Epogen (7) Diabetes mellitus with multiple complications: Code(s): E11.8 - Type 2 diabetes mellitus with unspecified complications Status: Acute Assessment and Plan: * follow accuchecks * on Lantus Will continue to follow Subjective Date/time seen: 06/15/20 17:53 Kidney function has been worsening in the last few days despite current interventions; diuretics on hold for now; no apparent distress with regard to shortness of breath or chest pain. Exam Narrative: Exam Narrative: General: WD/WN male in NAD Heart: normal S1 and S2; no rub Lungs: clear bilaterally to auscultation Abdomen: soft, nontender, nondistended, positive bowel sounds Extremities: 1 - 2+ edema in the right lower extremity. Skin: no rash Objective Data Vital Signs Vital Signs: Vital Signs Temp Pulse Resp BP Pulse Ox 06/15/20 14:00 36.3 C L 69 24 H 139/61 99 06/15/20 09:30 60 06/15/20 05:02 36.5 C 60 18 125/61 97 06/14/20 22:00 36.5 C 70 20 114/58 L 96 06/14/20 20:10 80 06/14/20 20:00 100 Intake/Output Intake/Output: Intake & Output 06/12/20 06/13/20 06/14/20 06/15/20 23:59 23:59 23:59 23:59 Intake Total 1200 614 998 6384 Balance 1200 983 155 6860 Meds/Results Medications: Active Medications
--- NOTE | 2020-06-15 17:53 | PM.PNNEP ---
Progress Note: A&P Assessment and Plan (1) NATAN (acute kidney injury): Code(s): N17.9 - Acute kidney failure, unspecified Status: Acute Assessment and Plan: etiology?? check urine electrolytes check CXR -- if clear, consider IVFs trial diuretics on hold at this time check renal ultrasound (2) Chronic kidney disease, stage IV (severe): Code(s): N18.4 - Chronic kidney disease, stage 4 (severe) Status: Chronic Assessment and Plan: baseline creatinine runs ~ 2.1 - 2.6mg/dl multifactorial etiology: - depressed ejection fraction/cardiomyopathy (making him prone to prerenal azotemia) - necessity of diuretics to maintain volume status - diabetes - hypertesnion - peripheral vascular disease continue supportive therapy creatinine up a bit with high BUN today -- due to diuretics???; trial of holding for a few days. (3) Status post below-knee amputation of left lower extremity: Code(s): Z89.512 - Acquired absence of left leg below knee Status: Acute Assessment and Plan: due to non-salvageable left foot/leg gangrene local wound care continue aggressive PT/OT/rehab (4) Chronic combined systolic and diastolic heart failure: Code(s): I50.42 - Chronic combined systolic (congestive) and diastolic (congestive) heart failure Status: Acute Assessment and Plan: appears compensated at this time has a little bit of swelling. follows with Dr. Gee who is following now on oral diuretics (5) Hypertension: Code(s): I10 - Essential (primary) hypertension Status: Acute Assessment and Plan: BP stable follow hemodynamics (6) Anemia: Code(s): D64.9 - Anemia, unspecified Status: Acute Assessment and Plan: likely due to recent operative intervention and CKD hemoglobin down a little bit today. He is going to get a blood transfusion. getting Epogen (7) Diabetes mellitus with multiple complications: Code(s): E11.8 - Type 2 diabetes mellitus with unspecified complications Status: Acute Assessment and Plan: follow accuchecks on Lantus Will continue to follow Subjective Date/time seen: 06/15/20 17:53 Kidney function has been worsening in the last few days despite current interventions; diuretics on hold for now; no apparent distress with regard to shortness of breath or chest pain. Exam Narrative: Exam Narrative: General: WD/WN male in NAD Heart: normal S1 and S2; no rub Lungs: clear bilaterally to auscultation Abdomen: soft, nontender, nondistended, positive bowel sounds Extremities: 1 - 2+ edema in the right lower extremity. Skin: no rash Objective Data Vital Signs Vital Signs: Vital Signs Temp Pulse Resp BP Pulse Ox 06/15/20 14:00 36.3 C L 69 24 H 139/61 99 06/15/20 09:30 60 06/15/20 05:02 36.5 C 60 18 125/61 97 06/14/20 22:00 36.5 C 70 20 114/58 L 96 06/14/20 20:10 80 06/14/20 20:00 100 Intake/Output Intake/Output: Intake & Output 06/12/20 06/13/20 06/14/20 06/15/20 23:59 23:59 23:59 23:59 Intake Total 1200 421 584 8532 Balance 1200 341 293 1511 Meds/Results Medications: Active Medications Generic Name Dose Route Start Last Admin Trade Name Saulo PRN Reason Stop Dose Admin Acetaminophen 1,000 mg 06/01/20 20:59 06/02/20 10:19 Tylenol Tablet PO 1,000 mg Q6H PRN Administration Pain (Scale Score 1-3) Hydrocodone Bitart/Acetaminophen 1 tab 06/02/20 11:18 06/08/20 09:42 Hydrocodone/Acetaminophen (*Crx) 5-325 Mg Tablet PO 1 tab Q6H PRN Administration Pain Rated 4-6 Hydrocodone Bitart/Acetaminophen 2 tab 06/02/20 11:18 06/13/20 05:27 Hydrocodone/Acetaminophen (*Crx) 5-325 Mg Tablet PO 2 tab Q6H PRN Administration Pain Rated 7-10 Amlodipine Besylate 5 mg 06/02/20 09:00 06/15/20 09:30 Norvasc PO 5 mg BOB
[2020-06-15 20:02] VITALS: BP 136/70; PULSE 61; RESP 18; TEMP 36.1; O2SAT 100
[2020-06-15] MEDS: ATORVASTATIN 40 MG TABLET PO (20:07)
[2020-06-15] MEDS: INSULIN GLARGINE (*BKC) 100 UNITS/ML 8 UNITS SUB-Q (20:12)
[2020-06-15 20:20] LABS: Glucose Point of Care 204 (65-105)
[2020-06-15 21:30] VITALS: O2SAT 97
[2020-06-15 21:45] VITALS: PULSE 58; O2SAT 96
[2020-06-16 03:36] LABS: Add Urine Microscopic? YES; Amorphous Sediment Urine Few; Appearance Urine Cloudy (Clear); Bacteria Urine Trace /hpf; Bilirubin Urine Negative (Negative); Blood Urine Negative (Negative); Color Urine Yellow (Yellow); Glucose Urine UA 2+ mg/dL (Negative); Ketones Urine Negative (Negative); Leukocyte Esterase Ur Negative LEU/UL (Negative); Mucus Urine Rare /lpf; Nitrate Urine Negative (Negative); Protein Urine 3+ mg/dL (Negative); Specific Grav Ur 1.015 (1.001-1.035); Squamous Epithelial Cell Urine Rare /hpf (Few); Urobilinogen Urine Negative mg/dL (<2.0); WBC Urine 0-3 /hpf
[2020-06-16 03:42] LABS: Creatinine Urine 96.6 mg/dL
[2020-06-16 04:05] LABS: Sodium Urine Random < 5 meq/L; Total Protein Urine Random 317 mg/dL
[2020-06-16 04:42] LABS: Aldolase 4.1 U/L (<=8.1)
[2020-06-16 04:51] VITALS: BP 130/69; PULSE 57; RESP 20; TEMP 36.2; O2SAT 99
[2020-06-16 04:57] LABS: Basophils Absolute Auto 0.1 K/mm3 (0.0-0.1); Basophils Percent Auto 0.6 % (0.2-1.2); Eosinophils Absolute Auto 0.3 K/mm3 (0-0.3); Eosinophils Percent Auto 3.6 % (0-4.4); Hematocrit 27.6 % (42.0-52.0); Hemoglobin 8.4 g/dL (14.0-18.0); Immature Granulocyte Absolute 0.05 K/mm3 (0.00-0.031); Immature Granulocyte Percent A 0.6 % (0-0.5); Lymphocytes Absolute Auto 0.54 K/mm3 (0.9-3.2); Lymphocytes Percent Auto 6.7 % (18.3-44.2); Mean Corpuscular HGB Conc 30.4 g/dl (32-36); Mean Platelet Volume 10.5 fl (7.4-10.4); Monocytes Absolute Auto 0.9 K/mm3 (0.1-0.6); Monocytes Percent Auto 10.6 % (2.6-8.5); Neutrophils Absolute Auto 6.3 K/mm3 (1.3-6.7); Neutrophils Percent Auto 77.9 % (45.5-73.1); Platelet Count Result 300 k/mm3 (150-375); Red Cell Distribution Width 18.8 % (11.5-14.5)
[2020-06-16 05:24] LABS: Anion Gap 12 mmol/L (8-16); Calcium 8.2 mg/dL (8.4-10.2); Carbon Dioxide 16 mmol/L (22-30); Chloride 111 mmol/L (98-107); Estimated CRCL calculation 32 ml/min; Estimated Glomerular Filt Rate 21; Glucose 139 mg/dL (75-110); Phosphorus 8.4 mg/dL (2.5-4.5); Potassium 5.7 mmol/L (3.4-5.0); Sodium 139 mmol/L (137-145)
[2020-06-16] MEDS: HEPARIN SODIUM 5,000 UNITS/ML VIAL 5000 UNITS SUB-Q ×3 (05:57→20:30)
[2020-06-16 06:12] LABS: Blood Urea Nitrogen 128 mg/dL (9-20)
[2020-06-16 07:17] LABS: Glucose Point of Care 130 (65-105)
[2020-06-16 08:25] VITALS: PULSE 57
[2020-06-16] MEDS: FERROUS SULFATE 324 MG TABLET PO (08:25)
[2020-06-16] MEDS: ASPIRIN 81 MG ENTERIC TABLET PO (08:25)
[2020-06-16] MEDS: amLODIPine BESYLATE 5 MG TABLET PO (08:25)
[2020-06-16] MEDS: carvediloL 12.5 MG TABLET PO ×2 (08:25→20:30)
[2020-06-16 08:26] VITALS: BMI 10.0
[2020-06-16] MEDS: FENOFIBRATE,MICRONIZED 48 MG TABLET PO (08:26)
[2020-06-16] MEDS: GABAPENTIN 300 MG CAPSULE PO ×3 (08:26→17:33)
--- NOTE | 2020-06-16 10:29 | PM.PNCARD ---
Progress Note: A&P Assessment and Plan (1) Chronic combined systolic and diastolic heart failure: Code(s): I50.42 - Chronic combined systolic (congestive) and diastolic (congestive) heart failure Status: Acute Assessment and Plan: On Coreg. Intolerant of Entresto due to worsening kidney function, Valsartan due to hyperkalemia. Doubt he would tolerate babak inhibitor for same reason as Valsartan. Echo shows moderate LV systolic dysfunction with EF 35-40%. No longer needs Life Vest or ICD to prevent sudden cardiac arrest. CXR on 06/15/20 shows CHF and pleural effusions. He should be on Lasix 40 mg BID for now. (2) CKD (chronic kidney disease) stage 3, GFR 30-59 ml/min: Code(s): N18.3 - Chronic kidney disease, stage 3 (moderate) Status: Chronic Assessment and Plan: Potassium trending up to 5.7 today and Cr 3.1. Monitor potassium and renal function. Nephrology following. (3) CAD (coronary artery disease), autologous vein bypass graft: Code(s): I25.810 - Atherosclerosis of coronary artery bypass graft(s) without angina pectoris Status: Acute (4) Elevated lipids: Code(s): E78.5 - Hyperlipidemia, unspecified Status: Acute (5) Anemia: Code(s): D64.9 - Anemia, unspecified Status: Acute Assessment and Plan: Received blood transfusions on 06/11/20. Developed sob from it due to volume overload. Given Lasix 40 mg IVx 1 on 06/12/20. In future, if given blood transfusions, would given Lasix 40 mg IV immediately after. (6) Hypertension: Code(s): I10 - Essential (primary) hypertension Status: Acute Assessment and Plan: Stable. On Amlodipine. Increase Coreg 12.5 mg BID. Discontinued Valsartan as potassium increased on it. He did not tolerate Entresto due to hyperkalemia and worsening kidney function. (7) Hyperkalemia: Code(s): E87.5 - Hyperkalemia Status: Acute Assessment and Plan: Probably related to worsening renal failure. Avoid potassium in dietary intake. Will need Kayexalate or otherwise to lower potassium level. Will leave this up to primary service or nephrology. Subjective Date/time seen: 06/16/20 10:29 Denies chest pain or sob currently. Exam Const: General: comfortable and no acute distress Neck: Neck: no JVD Carotids: no bruits Resp: Auscultation: clear to auscultation bilaterally, no crackles, no rales, no rhonchi and no wheezes Cardio: Rate: regular rate Rhythm: regular rhythm Heart sounds: no murmurs GI: Inspection: non-distended Neuro: Speech: normal speech Extrem: Right lower extremity: edema (Trace edema of RLE) Other: Below knee amputation. Objective Data Vital Signs Vital Signs: Vital Signs - 24 hr 06/15/20 14:00 06/15/20 20:02 06/15/20 21:30 Temperature 97.4 F L 96.9 F L Pulse Rate 69 61 Respiratory Rate 24 H 18 Blood Pressure 139/61 136/70 Pulse Oximetry 99 100 97 06/15/20 21:45 06/16/20 04:51 06/16/20 08:25 Temperature 97.1 F L Pulse Rate 58 L 57 L 57 L Respiratory Rate 20 Blood Pressure 130/69 Pulse Oximetry 96 99 Intake/Output Intake/Output: Intake & Output 06/13/20 06/14/20 06/15/20 06/16/20 23:59 23:59 23:59 23:59 Intake Total 983 615 0899 240 Balance 700 180 9896 240 Meds/Results Medications: Active Medications Generic Name Dose Route Start Last Admin Trade Name Freq PRN Reason Stop Dose Admin Acetaminophen 1,000 mg 06/01/20 20:59 06/02/20 10:19 Tylenol Tablet PO 1,000 mg Q6H PRN Administration Pain (Scale Score 1-3) Hydrocodone Bitart/Acetaminophen 1 tab 06/02/20 11:18 06/08/20 09:42 Hydrocodone/Acetaminophen (*Crx) 5-325 Mg Tablet PO 1 tab Q6H PRN Administration Pain Rated 4-6 Hydrocodone Bitart/Acetaminophen 2 tab 06/02/20 11:18 06/13/20 05:27 Hydrocodone/Acetaminophen (*Crx) 5-325 Mg Tablet PO 2 tab Q6H PRN Administration Pain Rated 7-10 Amlodipine Besylate 5 mg
[2020-06-16] MEDS: SODIUM POLYSTYRENE SULFONONATE 15 GM/60 ML BTL 30 GM PO (12:00)
[2020-06-16] MEDS: MULTIVITAMINS THERAPEUTIC TAB (*BKC) 1 TABLET PO (12:29)
[2020-06-16] MEDS: CHOLECALCIFEROL 1,000 UNITS TABLET 2000 UNITS PO (12:29)
[2020-06-16] MEDS: OMEGA 3 POLYUNSAT FATTY ACIDS 1 GM CAP PO (12:31)
[2020-06-16] MEDS: EPOETIN ALFA-EPBX 10,000 UNITS/ML VIAL 10000 UNITS SUB-Q (12:34)
[2020-06-16 14:00] VITALS: BP 116/61; PULSE 64; RESP 18; TEMP 36.4; O2SAT 100
--- NOTE | 2020-06-16 14:26 | PC.NURSE ---
did not give Questran at 11am -pt was to get Kayexylate 30gm for K level of 5.7. Will give next dose-Dr. Sue aware.
--- NOTE | 2020-06-16 16:24 | P.PNNP_ITS ---
Progress Note: A&P Assessment and Plan (1) NATAN (acute kidney injury): Code(s): N17.9 - Acute kidney failure, unspecified Status: Acute Assessment and Plan: * etiology?? * urine electrolytes with prerenal azotemia (but has evidence of fluid overload) * CXR with CHF and pleural effusions -- hence, no trial of IVFs * renal ultrasound normal * BUN and creatinie relatively unchanged * follow trend of UOP and repeat labs (2) Chronic kidney disease, stage IV (severe): Code(s): N18.4 - Chronic kidney disease, stage 4 (severe) Status: Chronic Assessment and Plan: * baseline creatinine runs ~ 2.1 - 2.6mg/dl * multifactorial etiology: - depressed ejection fraction/cardiomyopathy (making him prone to prerenal azotemia) - necessity of diuretics to maintain volume status - diabetes - hypertesnion - peripheral vascular disease * continue supportive therapy (3) Status post below-knee amputation of left lower extremity: Code(s): Z89.512 - Acquired absence of left leg below knee Status: Acute Assessment and Plan: * due to non-salvageable left foot/leg gangrene * local wound care * continue aggressive PT/OT/rehab (4) Chronic combined systolic and diastolic heart failure: Code(s): I50.42 - Chronic combined systolic (congestive) and diastolic (congestive) heart failure Status: Acute Assessment and Plan: * appears compensated at this time * has a little bit of swelling and CXR findings noted * follows with Dr. Gee who is following now * resumed on oral diuretics (5) Hypertension: Code(s): I10 - Essential (primary) hypertension Status: Acute Assessment and Plan: * BP stable * follow hemodynamics (6) Anemia: Code(s): D64.9 - Anemia, unspecified Status: Acute Assessment and Plan: * likely due to recent operative intervention and CKD * hemoglobin down a little bit today. He is going to get a blood transfusion. * getting Epogen (7) Diabetes mellitus with multiple complications: Code(s): E11.8 - Type 2 diabetes mellitus with unspecified complications Status: Acute Assessment and Plan: * follow accuchecks * on Lantus Will continue to follow Subjective Date/time seen: 06/16/20 16:24 States he feels okay but AM labs concerning for elevated potassium (and has since received kayexalate); CXR with congestion so diuretics restarted; states he is making urine but not documented. Exam Narrative: Exam Narrative: General: WD/WN male in NAD Heart: normal S1 and S2; no rub Lungs: clear bilaterally to auscultation Abdomen: soft, nontender, nondistended, positive bowel sounds Extremities: 1 - 2+ edema in the right lower extremity. Skin: no rash Objective Data Vital Signs Vital Signs: Vital Signs Temp Pulse Resp BP Pulse Ox 06/16/20 14:00 36.4 C L 64 18 116/61 100 06/16/20 08:25 57 L 06/16/20 04:51 36.2 C L 57 L 20 130/69 99 06/15/20 21:45 58 L 96 06/15/20 21:30 97 06/15/20 20:02 36.1 C L 61 18 136/70 100 Intake/Output Intake/Output: Intake & Output 06/13/20 06/14/20 06/15/20 06/16/20 23:59 23:59 23:59 23:59 Intake Total 562 919 2840 480 Balance 299 124 2725 480 Meds/Results
--- NOTE | 2020-06-16 16:24 | PM.PNNEP ---
Progress Note: A&P Assessment and Plan (1) NATAN (acute kidney injury): Code(s): N17.9 - Acute kidney failure, unspecified Status: Acute Assessment and Plan: etiology?? urine electrolytes with prerenal azotemia (but has evidence of fluid overload) CXR with CHF and pleural effusions -- hence, no trial of IVFs renal ultrasound normal BUN and creatinie relatively unchanged follow trend of UOP and repeat labs (2) Chronic kidney disease, stage IV (severe): Code(s): N18.4 - Chronic kidney disease, stage 4 (severe) Status: Chronic Assessment and Plan: baseline creatinine runs ~ 2.1 - 2.6mg/dl multifactorial etiology: - depressed ejection fraction/cardiomyopathy (making him prone to prerenal azotemia) - necessity of diuretics to maintain volume status - diabetes - hypertesnion - peripheral vascular disease continue supportive therapy (3) Status post below-knee amputation of left lower extremity: Code(s): Z89.512 - Acquired absence of left leg below knee Status: Acute Assessment and Plan: due to non-salvageable left foot/leg gangrene local wound care continue aggressive PT/OT/rehab (4) Chronic combined systolic and diastolic heart failure: Code(s): I50.42 - Chronic combined systolic (congestive) and diastolic (congestive) heart failure Status: Acute Assessment and Plan: appears compensated at this time has a little bit of swelling and CXR findings noted follows with Dr. Gee who is following now resumed on oral diuretics (5) Hypertension: Code(s): I10 - Essential (primary) hypertension Status: Acute Assessment and Plan: BP stable follow hemodynamics (6) Anemia: Code(s): D64.9 - Anemia, unspecified Status: Acute Assessment and Plan: likely due to recent operative intervention and CKD hemoglobin down a little bit today. He is going to get a blood transfusion. getting Epogen (7) Diabetes mellitus with multiple complications: Code(s): E11.8 - Type 2 diabetes mellitus with unspecified complications Status: Acute Assessment and Plan: follow accuchecks on Lantus Will continue to follow Subjective Date/time seen: 06/16/20 16:24 States he feels okay but AM labs concerning for elevated potassium (and has since received kayexalate); CXR with congestion so diuretics restarted; states he is making urine but not documented. Exam Narrative: Exam Narrative: General: WD/WN male in NAD Heart: normal S1 and S2; no rub Lungs: clear bilaterally to auscultation Abdomen: soft, nontender, nondistended, positive bowel sounds Extremities: 1 - 2+ edema in the right lower extremity. Skin: no rash Objective Data Vital Signs Vital Signs: Vital Signs Temp Pulse Resp BP Pulse Ox 06/16/20 14:00 36.4 C L 64 18 116/61 100 06/16/20 08:25 57 L 06/16/20 04:51 36.2 C L 57 L 20 130/69 99 06/15/20 21:45 58 L 96 06/15/20 21:30 97 06/15/20 20:02 36.1 C L 61 18 136/70 100 Intake/Output Intake/Output: Intake & Output 06/13/20 06/14/20 06/15/20 06/16/20 23:59 23:59 23:59 23:59 Intake Total 669 006 5651 480 Balance 623 631 0827 480 Meds/Results Medications: Active Medications Generic Name Dose Route Start Last Admin Trade Name Freq PRN Reason Stop Dose Admin Acetaminophen 1,000 mg 06/01/20 20:59 06/02/20 10:19 Tylenol Tablet PO 1,000 mg Q6H PRN Administration Pain (Scale Score 1-3) Hydrocodone Bitart/Acetaminophen 1 tab 06/02/20 11:18 06/08/20 09:42 Hydrocodone/Acetaminophen (*Crx) 5-325 Mg Tablet PO 1 tab Q6H PRN Administration Pain Rated 4-6 Hydrocodone Bitart/Acetaminophen 2 tab 06/02/20 11:18 06/13/20 05:27 Hydrocodone/Acetaminophen (*Crx) 5-325 Mg Tablet PO 2 tab Q6H PRN Administration Pain Rated 7-10 Amlodipine Besyla
[2020-06-16 17:00] LABS: Glucose Point of Care 147 (65-105)
[2020-06-16 17:00] LABS: Glucose Point of Care 124 (65-105)
[2020-06-16] MEDS: FUROSEMIDE 40 MG TABLET PO (17:32)
[2020-06-16 20:06] VITALS: O2SAT 94
[2020-06-16 20:10] VITALS: BP 132/60; PULSE 65; RESP 20; TEMP 36.3; O2SAT 97
[2020-06-16 20:30] VITALS: PULSE 68
[2020-06-16] MEDS: ATORVASTATIN 40 MG TABLET PO (20:30)
[2020-06-16] MEDS: INSULIN GLARGINE (*BKC) 100 UNITS/ML 8 UNITS SUB-Q (20:31)
[2020-06-16] MEDS: CHOLESTYRAMINE LIGHT 4 GM POWD.PACK PO (20:31)
[2020-06-16 20:51] LABS: Glucose Point of Care 170 (65-105)
[2020-06-17] VITALS (8 sets, daily range): BP systolic 118–142; BP diastolic 56–62; PULSE 64–68; RESP 18–20; TEMP 36.3–36.7; O2SAT 91–99
[2020-06-17 05:48] LABS: Albumin Level 2.9 g/dL (3.5-5.1); Anion Gap 12 mmol/L (8-16); Carbon Dioxide 17 mmol/L (22-30); Chloride 112 mmol/L (98-107); Estimated CRCL calculation 31 ml/min; Estimated Glomerular Filt Rate 20; Glucose 173 mg/dL (75-110); Phosphorus 8.8 mg/dL (2.5-4.5); Potassium 5.2 mmol/L (3.4-5.0); Sodium 141 mmol/L (137-145)
[2020-06-17 05:49] LABS: Blood Urea Nitrogen 134 mg/dL (9-20)
[2020-06-17] MEDS: HEPARIN SODIUM 5,000 UNITS/ML VIAL 5000 UNITS SUB-Q ×2 (06:11→12:59)
[2020-06-17 06:33] LABS: Glucose Point of Care 159 (65-105)
--- NOTE | 2020-06-17 08:14 | PC.NURSE ---
Dr. Gee visited patient this morning at approximately 7:[address] Bay (per physician to nurse communication dated 06/17/2020) I asked Dr. Gee if a trial dose of dobutamine would be worth a try to help his kidneys and Dr. Gee stated he did not believe that would be helpful.
--- NOTE | 2020-06-17 08:17 | PM.PNCARD ---
Progress Note: A&P Assessment and Plan (1) Chronic combined systolic and diastolic heart failure: Code(s): I50.42 - Chronic combined systolic (congestive) and diastolic (congestive) heart failure Status: Acute Assessment and Plan: On Coreg. Intolerant of Entresto due to worsening kidney function, Valsartan due to hyperkalemia. Doubt he would tolerate babak inhibitor for same reason as Valsartan. Echo shows moderate LV systolic dysfunction with EF 35-40%. No longer needs Life Vest or ICD to prevent sudden cardiac arrest. CXR on 06/15/20 shows CHF and pleural effusions. He should be on Lasix 40 mg BID. Consider adding Metolazone 2.5 mg daily to enhance diuresis if OK with nephrology. Would not give dobutamine drip as his EF is only moderately reduced. We can decrease Coreg dose 6.25 mg BID, however. (2) CKD (chronic kidney disease) stage 3, GFR 30-59 ml/min: Code(s): N18.3 - Chronic kidney disease, stage 3 (moderate) Status: Chronic Assessment and Plan: Potassium trending up to 5.7 today and Cr 3.1. Monitor potassium and renal function. Nephrology following. (3) CAD (coronary artery disease), autologous vein bypass graft: Code(s): I25.810 - Atherosclerosis of coronary artery bypass graft(s) without angina pectoris Status: Acute (4) Elevated lipids: Code(s): E78.5 - Hyperlipidemia, unspecified Status: Acute (5) Anemia: Code(s): D64.9 - Anemia, unspecified Status: Acute Assessment and Plan: Received blood transfusions on 06/11/20. Developed sob from it due to volume overload. Given Lasix 40 mg IVx 1 on 06/12/20. In future, if given blood transfusions, would given Lasix 40 mg IV immediately after. (6) Hypertension: Code(s): I10 - Essential (primary) hypertension Status: Acute Assessment and Plan: Stable. Stop Amlodipine. Decrease Coreg 6.25 mg BID. Discontinued Valsartan as potassium increased on it. He did not tolerate Entresto due to hyperkalemia and worsening kidney function. If BP goest up, would start Hydralazine 25 mg TID. (7) Hyperkalemia: Code(s): E87.5 - Hyperkalemia Status: Acute Assessment and Plan: Probably related to worsening renal failure. Avoid potassium in dietary intake. Received Kayexalate dose on 06/16/20 with improvement in potassium level. Subjective Date/time seen: 06/17/20 08:17 Denies chest pain or sob. Reports scrotal swelling. Exam Const: General: comfortable and no acute distress Neck: Neck: no JVD Carotids: no bruits Resp: Auscultation: clear to auscultation bilaterally, no crackles, no rales, no rhonchi and no wheezes Cardio: Rate: regular rate Rhythm: regular rhythm Heart sounds: no murmurs GI: Inspection: non-distended Neuro: Speech: normal speech Extrem: Right lower extremity: edema (Trace edema of RLE) Other: Below knee amputation. Objective Data Vital Signs Vital Signs: Vital Signs - 24 hr 06/16/20 08:25 06/16/20 14:00 06/16/20 20:06 Temperature 97.5 F L Pulse Rate 57 L 64 Respiratory Rate 18 Blood Pressure 116/61 Pulse Oximetry 100 94 06/16/20 20:10 06/16/20 20:30 06/17/20 05:29 Temperature 97.4 F L 97.4 F L Pulse Rate 65 68 66 Respiratory Rate 20 18 Blood Pressure 132/60 118/56 L Pulse Oximetry 97 99 Intake/Output Intake/Output: Intake & Output 06/14/20 06/15/20 06/16/20 06/17/20 23:59 23:59 23:59 23:59 Intake Total 720 1680 720 200 Balance 720 1680 720 200 Meds/Results Medications: Active Medications Generic Name Dose Route Start Last Admin Trade Name Freq PRN Reason Stop Dose Admin Acetaminophen 1,000 mg 06/01/20 20:59 06/02/20 10:19 Tylenol Tablet PO 1,000 mg Q6H PRN Administration Pain (Scale Score 1-3) Hydrocodone Bitart/Acetaminophen 1 tab 06/02/20 11:18 06/08/20 09:42 Hydrocodone/Acetaminophen (*Crx) 5-325 Mg Tablet PO 1 tab Q6H PRN Administration Pain Rated 4-6
[2020-06-17] MEDS: FERROUS SULFATE 324 MG TABLET PO (09:04)
[2020-06-17] MEDS: ASPIRIN 81 MG ENTERIC TABLET PO (09:05)
[2020-06-17] MEDS: carvediloL 6.25 MG TABLET PO ×2 (09:06→20:19)
[2020-06-17] MEDS: hydrALAZINE HCL 25 MG TABLET PO ×2 (09:06→13:00)
[2020-06-17] MEDS: metOLazone 2.5 MG TABLET PO (09:07)
[2020-06-17] MEDS: GABAPENTIN 300 MG CAPSULE PO (09:07)
[2020-06-17] MEDS: FENOFIBRATE,MICRONIZED 48 MG TABLET PO (09:07)
[2020-06-17] MEDS: FUROSEMIDE 40 MG TABLET PO ×2 (09:07→17:25)
--- NOTE | 2020-06-17 12:34 | PC.NURSE ---
Call from [facility] stating patient to be transferred to [facility] under the direction of patient's Technician Dr. Kolton Schroeder. [facility] will call as soon as a bed is open. This may be today 06/17/2020 or possibly tomorrow 06/18/20. [facility] transfer line is [phone].
[2020-06-17] MEDS: CHOLECALCIFEROL 1,000 UNITS TABLET 2000 UNITS PO (12:59)
[2020-06-17] MEDS: OMEGA 3 POLYUNSAT FATTY ACIDS 1 GM CAP PO (12:59)
[2020-06-17] MEDS: MULTIVITAMINS THERAPEUTIC TAB (*BKC) 1 TABLET PO (12:59)
--- NOTE | 2020-06-17 13:13 | PCDIET ---
Nutrition Follow-Up Complete: Nutrition Diagnosis: Decreased sodium needs related to CHF as evidenced by medical history, per EMR. Nutrition Goal: Patient to consume 75% of meals + supplements. Goal met. Patient with average intake of 85% since last review. Patient requesting change in supplement; prefers Ensure to Nepro. Recommend Ensure Compact 1x daily and continuing high fiber, diabetic diet. Should K+ further increase, would recommend dietary K+ restriction. Last recorded weight is 119.7 kg. Recommend obtaining new weight. Bowel Motility: Patient reports daily BM - c/o loose since Kayexalate given. Labs Reviewed: Hgb (7.5), Hct (24.2), BUN (93), Cr (2.1), K (5.2), Ca (8.2) Meds Noted: Coreg, Questran, Epogen, Tricor, Ferrous Sulfate, Fish Oil, Lasix, Heparin, Apresoline, Lantus, MVI, Senna, Januvia, Vitamin D Additional Notes: Right heel incision open to air, healed. Left leg incision with dressing. Will continue to monitor with same goal. Nutrition Monitoring and Evaluation: Follow up every 7 days.
--- NOTE | 2020-06-17 13:19 | WPDNEURORHBP ---
Subjective Date/time seen: 06/17/20 13:19 Interval history: this 55-year-old diabetic is here after having had left BKA the stump is clean and has shania he is afebrile however is needing oxygen periodically because of underlying combined congestive heart failure and his renal status is getting worse he is generally weak and fatigued unable to engage in the therapy however denies any headache nausea vomiting chest pain or any new findings except being generally weak The sister or niece had called [facility] for for him to be transferred to [facility] where he had the surgery performed Review of Systems Review of Systems: All systems reviewed & are unremarkable except as noted in HPI and below Exam Narrative: Exam Narrative: patient is awake alert well oriented his needing oxygen about 2 liters is little shortness of breath and generally weak and fatigued Willian no store normal neck is supple no rigidity is noted, lungs revealed decreased breath sounds at the base abdomen soft not tender the extremities reveal significant peripheral neuropathy with absent reflexes and the sensory deficit and the left the BKA is clean Objective Data Vital Signs Vital Signs: Vital Signs - 24 hr 06/16/20 14:00 06/16/20 20:06 06/16/20 20:10 Temperature 36.4 C L 36.3 C L Pulse Rate 64 65 Respiratory Rate 18 20 Blood Pressure 116/61 132/60 Pulse Oximetry 100 94 97 06/16/20 20:30 06/17/20 05:29 06/17/20 09:06 Temperature 36.3 C L Pulse Rate 68 66 68 Respiratory Rate 18 Blood Pressure 118/56 L Pulse Oximetry 99 06/17/20 09:13 Temperature Pulse Rate 68 Respiratory Rate 18 Blood Pressure Pulse Oximetry 99 Intake/Output Intake/Output: Intake & Output 06/14/20 06/15/20 06/16/20 06/17/20 23:59 23:59 23:59 23:59 Intake Total 720 1680 720 560 Balance 720 1680 720 560 Meds/Results Medications: Active Medications Generic Name Dose Route Start Last Admin Trade Name Freq PRN Reason Stop Dose Admin Acetaminophen 1,000 mg 06/01/20 20:59 06/02/20 10:19 Tylenol Tablet PO 1,000 mg Q6H PRN Administration Pain (Scale Score 1-3) Hydrocodone Bitart/Acetaminophen 1 tab 06/02/20 11:18 06/08/20 09:42 Hydrocodone/Acetaminophen (*Crx) 5-325 Mg Tablet PO 1 tab Q6H PRN Administration Pain Rated 4-6 Hydrocodone Bitart/Acetaminophen 2 tab 06/02/20 11:18 06/13/20 05:27 Hydrocodone/Acetaminophen (*Crx) 5-325 Mg Tablet PO 2 tab Q6H PRN Administration Pain Rated 7-10 Aspirin 81 mg 06/02/20 09:00 06/17/20 09:05 Aspirin Ec PO 81 mg DAILY [facility] Administration Atorvastatin Calcium 40 mg 06/01/20 21:40 06/16/20 20:30 Lipitor PO 40 mg HS [facility] Administration Carvedilol 6.25 mg 06/17/20 09:00 06/17/20 09:06 Carvedilol 6.25 Mg Tablet PO 6.25 mg Q12HR [facility] Administration Cholestyramine Resin 4 gm 06/02/20 11:00 06/17/20 13:02 Questran Light Packet PO Not Given 1100,1900 [facility] Dextrose 12.5 gm 06/01/20 20:58 Dextrose 50% Syringe IV PUSH PRN PRN Hypoglycemia Protocol Epoetin Bradford-epbx 10,000 units 06/07/20 12:00 06/16/20 12:34 Retacrit SUB-Q 10,000 units TuThSa@1200 [facility] Administration Fenofibrate 48 mg 06/02/20 09:00 06/17/20 09:07 Tricor PO 07/03/20 09:01 48 mg DAILY [facility] Administration Ferrous Sulfate 324 mg 06/02/20 08:00 06/17/20 09:04 Ferrous Sulfate PO 324 mg DAILY@0800 [facility] Administration Fish Oil 1 gm 06/02/20 12:00 06/17/20 12:59 Lovaza PO 1 gm DAILY@1200 [facility] Administration Furosemide 40 mg 06/16/20 17:00 06/17/20 09:07 Furosemide 40 Mg Tablet PO 40 mg BID [facility] Administration Glucagon 1 mg 06/01/20 20:58 Glucagon For Inj IM PRN PRN Hypoglycemia Protocol Glucose 15 gm 06/01/20 20:58 Glutose 15 PO PRN PRN Hypoglycemia Protocol Heparin Sodium (Porcine) 5,000 units 06/02/20 14:00 06/17/20 12:59
[2020-06-17 14:12] LABS: SARS-CoV-2 RNA PCR Negative
--- NOTE | 2020-06-17 15:58 | P.PNNP_ITS ---
Progress Note: A&P Assessment and Plan (1) NATAN (acute kidney injury): Code(s): N17.9 - Acute kidney failure, unspecified Status: Acute Assessment and Plan: * etiology?? * urine electrolytes with prerenal azotemia (but has evidence of fluid overload) - prerenal urine electrolytes are more reflective of his cardiomyopathy and depressed EF * CXR with CHF and pleural effusions * renal ultrasound normal * BUN and creatinine rising * perhaps backing off on his BP medications and letting his BP to rise will allow better renal perfusion and help his renal function... * follow trend of UOP and repeat labs (2) Chronic kidney disease, stage IV (severe): Code(s): N18.4 - Chronic kidney disease, stage 4 (severe) Status: Chronic Assessment and Plan: * baseline creatinine runs ~ 2.1 - 2.6mg/dl * multifactorial etiology: - depressed ejection fraction/cardiomyopathy (making him prone to prerenal azotemia) - necessity of diuretics to maintain volume status - diabetes - hypertesnion - peripheral vascular disease * continue supportive therapy (3) Status post below-knee amputation of left lower extremity: Code(s): Z89.512 - Acquired absence of left leg below knee Status: Acute Assessment and Plan: * due to non-salvageable left foot/leg gangrene * local wound care * continue aggressive PT/OT/rehab (4) Chronic combined systolic and diastolic heart failure: Code(s): I50.42 - Chronic combined systolic (congestive) and diastolic (congestive) heart failure Status: Acute Assessment and Plan: * appears compensated at this time * has a little bit of swelling and CXR findings noted * follows with Dr. Gee who is following now * resumed on oral diuretics (5) Hypertension: Code(s): I10 - Essential (primary) hypertension Status: Acute Assessment and Plan: * BP stable * follow hemodynamics (6) Anemia: Code(s): D64.9 - Anemia, unspecified Status: Acute Assessment and Plan: * likely due to recent operative intervention and CKD * hemoglobin down a little bit today. He is going to get a blood transfusion. * getting Epogen (7) Diabetes mellitus with multiple complications: Code(s): E11.8 - Type 2 diabetes mellitus with unspecified complications Status: Acute Assessment and Plan: * follow accuchecks * on Lantus Will continue to follow - noted plans for transfer to [facility] which seems reasonable as he will need further diuresis but this may make his renal function worse - it is possible he may need VERIFICATION SPECIALIST/dialysis to balance this complex situation which I discussed with him as well -- extensive discussion with patient (> 20 minutes) regarding his deteriorating kidney function, transfer to [facility], and possibility of renal replacement therapy/dialysis. Subjective Date/time seen: 06/17/20 15:58 Still requiring supplemental oxygen with ongoing deterioration of renal function as noted by AM labs; no acute distress but mobility hampered by his fluid overload status; states he is making urine but not clearly documented; noted plans for transfer to [place] for further evaluation/treatment. Exam Narrative: Exam Narrative: General: WD/WN male in NAD Heart: normal S1 and S2; no rub Lungs: bibasilar crackles Abdomen: soft, nontender, nondistended, positive bowel sounds Extremities: 1 - 2+ edema in the right lower extremity Skin: warm and intact Objective Da
--- NOTE | 2020-06-17 15:58 | PM.PNNEP ---
Progress Note: A&P Assessment and Plan (1) NATAN (acute kidney injury): Code(s): N17.9 - Acute kidney failure, unspecified Status: Acute Assessment and Plan: etiology?? urine electrolytes with prerenal azotemia (but has evidence of fluid overload) - prerenal urine electrolytes are more reflective of his cardiomyopathy and depressed EF CXR with CHF and pleural effusions renal ultrasound normal BUN and creatinine rising perhaps backing off on his BP medications and letting his BP to rise will allow better renal perfusion and help his renal function... follow trend of UOP and repeat labs (2) Chronic kidney disease, stage IV (severe): Code(s): N18.4 - Chronic kidney disease, stage 4 (severe) Status: Chronic Assessment and Plan: baseline creatinine runs ~ 2.1 - 2.6mg/dl multifactorial etiology: - depressed ejection fraction/cardiomyopathy (making him prone to prerenal azotemia) - necessity of diuretics to maintain volume status - diabetes - hypertesnion - peripheral vascular disease continue supportive therapy (3) Status post below-knee amputation of left lower extremity: Code(s): Z89.512 - Acquired absence of left leg below knee Status: Acute Assessment and Plan: due to non-salvageable left foot/leg gangrene local wound care continue aggressive PT/OT/rehab (4) Chronic combined systolic and diastolic heart failure: Code(s): I50.42 - Chronic combined systolic (congestive) and diastolic (congestive) heart failure Status: Acute Assessment and Plan: appears compensated at this time has a little bit of swelling and CXR findings noted follows with Dr. Gee who is following now resumed on oral diuretics (5) Hypertension: Code(s): I10 - Essential (primary) hypertension Status: Acute Assessment and Plan: BP stable follow hemodynamics (6) Anemia: Code(s): D64.9 - Anemia, unspecified Status: Acute Assessment and Plan: likely due to recent operative intervention and CKD hemoglobin down a little bit today. He is going to get a blood transfusion. 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 Subjective Date/time seen: 06/17/20 15:58 Still requiring supplemental oxygen with ongoing deterioration of renal function as noted by AM labs; no acute distress but mobility hampered by his fluid overload status; states he is making urine but not clearly documented; noted plans for transfer to [place] for further evaluation/treatment. Exam Narrative: Exam Narrative: General: WD/WN male in NAD Heart: normal S1 and S2; no rub Lungs: bibasilar crackles Abdomen: soft, nontender, nondistended, positive bowel sounds Extremities: 1 - 2+ edema in the right lower extremity Skin: warm and intact Objective Data Vital Signs Vital Signs: Vital Signs Temp Pulse Resp BP Pulse Ox 06/17/20 14:00 36.7 C 68 20 142/62 H 99 06/17/20 09:13 68 18 99 06/17/20 09:06 68 06/17/20 05:29 36.3 C L 66 18 118/56 L 99 06/16/20 20:30 68 06/16/20 20:10 36.3 C L 65 20 132/60 97 06/16/20 20:06 94 Intake/Output Intake/Output: Intake & Output 06/14/20 06/15/20 06/16/20 06/17/20 23:59 23:59 23:59 23:59 Intak
[2020-06-17] MEDS: CHOLESTYRAMINE LIGHT 4 GM POWD.PACK PO (18:38)
[2020-06-17] MEDS: ATORVASTATIN 40 MG TABLET PO (20:19)
[2020-06-17 20:27] LABS: Glucose Point of Care 261 (65-105)
[2020-06-17] MEDS: INSULIN GLARGINE (*BKC) 100 UNITS/ML 8 UNITS SUB-Q (20:29)
--- NOTE | 2020-06-21 12:55 | PM.TDS ---
Transfer Discharge Sum: Prov Provider Date of admission: 06/01/20 20:54 Primary care physician: Jewels Lamas, Admitting clinician: Jeffry Sue MD Consults: 06/01/20 Consult to Physician Routine Comment: Consulting Provider: Jone Bay Reason for consultation: elevated BUN Has provider been notified: Yes 06/06/20 07:00 Consult to Physician Routine Comment: Consulting Provider: Nasim Gee Reason for consultation: Chronic systolic + diastolic heart failure Has provider been notified: No 06/07/20 09:00 Consult to Physician Routine Comment: Consulting Provider: Harjinder Bernstein Reason for consultation: diarrhea Has provider been notified: Yes 06/14/20 Consult to Physician Routine Comment: Consulting Provider: Nasim Gee air intelligence specialist/MD group to consult: Gerard Reason for consultation: Medical stability for discharge on 06/15/20 Has provider been notified: Yes Consult to Physician Routine Comment: Consulting Provider: Jone Bay air intelligence specialist/MD group to consult: Shanique Reason for consultation: Medical stability prior to discharge 06/15/20 Has provider been notified: Yes Wound/ET Consult Routine Reason for Consult:: right heel redness DS: Admitting Diagnosis Admitting Diagnosis Admitting Diagnosis: L. BKA DS: Discharge Diagnosis Discharge Diagnosis (1) Hyperkalemia: Code(s): E87.5 - Hyperkalemia Status: Acute (2) Status post below-knee amputation of left lower extremity: Code(s): Z89.512 - Acquired absence of left leg below knee Status: Acute (3) Amputation of left lower extremity below knee: Code(s): S88.112A - Complete traumatic amputation at level between knee and ankle, left lower leg, initial encounter Status: Inactive (4) Anemia: Code(s): D64.9 - Anemia, unspecified Status: Acute (5) Diabetes mellitus with multiple complications: Code(s): E11.8 - Type 2 diabetes mellitus with unspecified complications Status: Acute (6) Chronic combined systolic and diastolic heart failure: Code(s): I50.42 - Chronic combined systolic (congestive) and diastolic (congestive) heart failure Status: Acute (7) Below-knee amputation of left lower extremity: Code(s): S88.112A - Complete traumatic amputation at level between knee and ankle, left lower leg, initial encounter Status: Inactive (8) Chronic kidney disease, stage IV (severe): Code(s): N18.4 - Chronic kidney disease, stage 4 (severe) Status: Chronic (9) Diabetic neuropathy: Code(s): E11.40 - Type 2 diabetes mellitus with diabetic neuropathy, unspecified Status: Acute (10) Below-knee amputation of left lower extremity with complication: Code(s): S88.112A - Complete traumatic amputation at level between knee and ankle, left lower leg, initial encounter Status: Inactive (11) Acute exacerbation of CHF (congestive heart failure): Qualifiers: Heart failure type: unspecified Qualified Code(s): I50.9 - Heart failure, unspecified Code(s): I50.9 - Heart failure, unspecified Status: Acute (12) Weakness: Code(s): R53.1 - Weakness Status: Acute (13) Hypertension: Code(s): I10 - Essential (primary) hypertension Status: Acute (14) CAD (coronary artery disease), autologous vein bypass graft: Code(s): I25.810 - Atherosclerosis of coronary artery bypass graft(s) without angina pectoris Status: Acute (15) CHF (congestive heart failure): Code(s): I50.9 - Heart failure, unspecified Status: Acute Transfer Discharge Sum: Med Medications Active and Home Medications: Home Medications Cholestyramine Light 4 g PO BID 06/01/20 [History Confirmed 06/01/20] Lantus U-100 Insulin 8 unit SUBCUT HS 06/01/20 [History Confirmed 06/01/20] Tradjenta 5 mg PO QAM 06/01/20 [History Confirmed 06/01/20] acetaminophen 1,000 mg PO Q6H PRN 0
[2020-06-21 16:23] LABS: Chloride Rand Ur <20 mmol/L (32-290); Creatinine Random Urine 96 mg/dL (20-320)
== END 2020-06-17 22:20 | disposition short-term general hospital (02) | DRG 559 ==
PROVIDERS: Internal Medicine Gastroenterology; Internal Medicine Nephrology; Psychiatry & Neurology Neurology; Admitting Provider Psychiatry & Neurology Neurology; PCP Family Medicine; Visit Provider Psychiatry & Neurology Neurology
PROC: 0DJD8ZZ Inspection of Lower Intestinal Tract, Via Natural or Artificial Opening Endoscopic (ICD-10-PCS; CPT 45378; principal; 2020-06-09 10:30)
DX: Z47.81 Encounter for orthopedic aftercare following surgical amputation (principal); I50.43 Acute on chronic combined systolic (congestive) and diastolic (congestive) heart failure; N17.0 Acute kidney failure with tubular necrosis; I13.0 Hypertensive heart and chronic kidney disease with heart failure and stage 1 through stage 4 chronic kidney disease, or unspecified chronic kidney disease; E87.2 Acidosis; E87.0 Hyperosmolality and hypernatremia; N18.4 Chronic kidney disease, stage 4 (severe); Z20.828 Contact with and (suspected) exposure to other viral communicable diseases; R79.89 Other specified abnormal findings of blood chemistry; E11.51 Type 2 diabetes mellitus with diabetic peripheral angiopathy without gangrene; Z89.512 Acquired absence of left leg below knee; D63.1 Anemia in chronic kidney disease; E11.65 Type 2 diabetes mellitus with hyperglycemia; E11.21 Type 2 diabetes mellitus with diabetic nephropathy; E11.319 Type 2 diabetes mellitus with unspecified diabetic retinopathy without macular edema; E11.42 Type 2 diabetes mellitus with diabetic polyneuropathy; E78.5 Hyperlipidemia, unspecified; E87.5 Hyperkalemia; E11.22 Type 2 diabetes mellitus with diabetic chronic kidney disease; G47.33 Obstructive sleep apnea (adult) (pediatric); I25.2 Old myocardial infarction; I25.10 Atherosclerotic heart disease of native coronary artery without angina pectoris; I48.91 Unspecified atrial fibrillation; K52.9 Noninfective gastroenteritis and colitis, unspecified; K57.30 Diverticulosis of large intestine without perforation or abscess without bleeding; K64.8 Other hemorrhoids; R60.0 Localized edema; R06.89 Other abnormalities of breathing; Z95.1 Presence of aortocoronary bypass graft; Z98.42 Cataract extraction status, left eye; Z87.891 Personal history of nicotine dependence; Z96.1 Presence of intraocular lens; Z79.4 Long term (current) use of insulin
CPT/HCPCS: 36415; 36430; 71045; 76775; 80048; 80069; 81001; 81050; 82085; 82274; 82436; 82550; 82570; 82607; 82746; 83036; 83880; 84156; 84300; 85025; 85027; 85999; 86038; 86850; 86900; 86901; 86920; 87635; 93306; 97110; 97161; 97166; 97530; 97535; 97542; A9270; C9803; J1644; J1815; J1940; J2704; J7120; P9016; Q5106; U0003

== ENCOUNTER 2020-12-23 16:17 | Inpatient (IN) | payer MEDICARE, MEDICAID, SELFPAY ==
[2020-12-23] VITALS (12 sets, daily range): BP systolic 100–136; BP diastolic 47–60; PULSE 72–78; RESP 13–24; TEMP 36.4–37.3; O2SAT 100; BMI 25.9
--- NOTE | 2020-12-23 16:58 | ED.RECABL ---
HPI - Recheck/Abnormal Lab/Rx General Chief Complaint: Recheck/Abnormal Lab/Rx Stated Complaint: leg infection/possible blood tx Time Seen by Provider: 12/23/20 16:36 History of Present Illness HPI narrative: 55 yo male w/ multiple medical problems including ESRD on dialysis, DM, HTN presents to the ED for low hemoglobin. He reports that he has been feeling weak for the past few days. He has also been having profuse diarrhea. He has not noted any dark or bloody stools. No h/o GI bleeding. He has required a transfusion in the past. He is not sure why he was anemic at that time. He does not know if he is on any blood thinners. Related Data Home Medications Medication Instructions Recorded Confirmed Cholestyramine Light 4 g PO BID 06/01/20 06/01/20 Lantus U-100 Insulin 8 unit SUBCUT HS 06/01/20 06/01/20 Tradjenta 5 mg PO QAM 06/01/20 06/01/20 acetaminophen 1,000 mg PO Q6H PRN 06/01/20 06/01/20 amlodipine 5 mg PO DAILY 06/01/20 06/01/20 aspirin 81 mg PO DAILY 06/01/20 06/01/20 atorvastatin 40 mg PO HS 06/01/20 06/01/20 cholecalciferol (vitamin D3) 50 mcg PO DAILY 06/01/20 06/01/20 [Vitamin D3] fenofibrate 54 mg PO DAILY 06/01/20 06/01/20 ferrous sulfate 325 mg PO DAILY 06/01/20 06/01/20 gabapentin 300 mg PO TID 06/01/20 06/01/20 multivitamin 1 tablet PO DAILY 06/01/20 06/01/20 nitroglycerin 0.4 mg SUBLINGUAL Q5-15M PRN 06/01/20 06/01/20 omega-3 fatty acids-fish oil 1 cap PO DAILY 06/01/20 06/01/20 Allergies Allergy/AdvReac Type Severity Reaction Status Date / Time Penicillins Allergy Unknown Unknown Verified 12/23/20 16:57 bee venom protein (honey bee) Allergy Swelling Verified 12/23/20 16:57 Review of Systems Review of Systems: All systems reviewed & are unremarkable except as noted in HPI and below Constitutional: Constitutional: Reports no additional constitutional complaints Eyes: Eyes: Reports no additional eye complaints ENT: Reports system reviewed and no additional complaints, except as documented Cardiovascular: Cardiovascular: Denies chest pain Respiratory: Respiratory: Denies dyspnea Gastrointestinal: Gastrointestinal: Denies abdominal pain, Reports diarrhea, Reports nausea and Denies vomiting Genitourinary: Genitourinary: Reports no additional male genitourinary complaints Neurologic: Denies confusion, Denies dizziness and Reports weakness Hematologic/Lymphatic: Hematologic/Lymphatic: Denies easy bleeding [facility] Past Medical History Medical History (Updated 12/23/20 @ 18:45 by Justyn Jasso MD) 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 heart failure With echocardiogram January 2020 demonstrating moderate left ventricular enlargement, EF 25-30%, abnormal diastolic function, E/e' mildly elevated, moderate right ventricular systolic dysfunction, severe left atrial enlargement, mild pulmonary hypertension with RVSP of 42 Anemia of chronic disease Anxiety and depression Arthritis CAD (coronary artery disease) CABG x4 2017, Lexiscan stress test January 2020 moderate sized mild partially reversible perfusion defect involving inferior wall consistent with mixed ischemia and infarct, large severe partially reversible perfusion defect involving the anterior lateral and inferior lateral wall consistent with mixed ischemia infarct, small mild partially reversible freezing defect involving left ventricular apex and mid anterior segment consistent with mix ischemia and infarct with EF of 29% Cardiac arrhythmia Went into Afib after CABG 2018 Cataract Right cataract pending surgery Diabetes Hemoglobin A1c of 11.03 Jan 2020 Diabetic nephropathy Diabetic neuropathy Diabetic peripheral neuropathy Elevated lipids History of amputation of toe Left 5th toe 2012 Obstructive sleep apnea Stage 3 chronic kidney disease Surgical History Surgical History Amputation toe Left 5th toe History of quadruple bypass 2018 at [facility]
[2020-12-23] MEDS: SODIUM CHLORIDE 0.9% IV 1,000 ML 999 ML IV CONT (17:06)
[2020-12-23 17:08] LABS: Basophils Percent Auto 0.3 % (0.2-1.2); Eosinophils Absolute Auto 0.2 K/mm3 (0-0.3); Eosinophils Percent Auto 2.7 % (0-4.4); Immature Granulocyte Absolute 0.06 K/mm3 (0.00-0.031); Immature Granulocyte Percent A 0.7 % (0-0.5); Lymphocytes Absolute Auto 0.69 K/mm3 (0.9-3.2); Lymphocytes Percent Auto 7.7 % (18.3-44.2); Mean Corpuscular HGB Conc 29.9 g/dl (32-36); Mean Corpuscular Hemoglobin 30.4 pg (26-34); Mean Corpuscular Volume 101.6 fl (80-100); Mean Platelet Volume 9.1 fl (7.4-10.4); Monocytes Absolute Auto 0.9 K/mm3 (0.1-0.6); Monocytes Percent Auto 9.6 % (2.6-8.5); Neutrophils Absolute Auto 7.1 K/mm3 (1.3-6.7); Platelet Count Result 323 k/mm3 (150-375); Red Blood Count 1.84 M/mm3 (4.6-6.20); Red Cell Distribution Width 17.4 % (11.5-14.5); White Blood Count 8.9 K/mm3 (4.5-10.0)
[2020-12-23 17:15] LABS: Hematocrit 18.7 % (42.0-52.0); Hemoglobin 5.6 g/dL (14.0-18.0); Hypochromasia 2+ (NORMAL)
[2020-12-23 17:16] LABS: Platelet Estimate Adequate (Adequate)
[2020-12-23 17:20] LABS: Alanine Aminotransferase 11 U/L (4-50); Albumin Level 2.9 g/dL (3.5-5.1); Alkaline Phosphatase 70 U/L (38-126); Anion Gap 7 mmol/L (8-16); Aspartate Amino Transferase 34 U/L (17-59); Bilirubin,Total 0.2 mg/dL (0.2-1.3); Blood Urea Nitrogen 51 mg/dL (9-20); Calcium 7.9 mg/dL (8.4-10.2); Carbon Dioxide 30 mmol/L (22-30); Chloride 105 mmol/L (98-107); Estimated CRCL calculation 15 ml/min; Estimated Glomerular Filt Rate 10; Glucose 98 mg/dL (75-110); Potassium 5.6 mmol/L (3.4-5.0); Sodium 142 mmol/L (137-145)
[2020-12-23 18:09] LABS: Glucose Point of Care 101 (65-105)
[2020-12-23] MEDS: SODIUM CHLORIDE 0.9% IV 250 ML 30 ML IV CONT (18:33)
[2020-12-23] MEDS: TUBING, BLOOD PLUM PUMP TUBING 1 EACH XX (18:33)
--- NOTE | 2020-12-23 20:19 | ADMGEN ---
This patient, Kobi Salter, was admitted to 2 Medical Room 241-01 @2018. Patient/family oriented to hospital policies and general routines including ID bracelet, bed and alarms, visiting hours, pain management, procedures, bathroom and other care routines, personal items, smoking policy, room service/diet, and visiting hours. Information on how to activate the Rapid Response Team has been discussed. Patient/Family are encouraged to report perceived risks to care and to ask questions if they do not understand what they are told or what they should do.
[2020-12-23 21:16] LABS: Glucose Point of Care 76 (65-105)
--- NOTE | 2020-12-23 23:25 | PM.IMHP ---
H&P: HPI History of Present Illness Date/Time: 12/23/20 23:25 this is a 55-year-old male patient who is in rehab at [facility] recently known as [facility]. The patient has a wound to his right heel and has a GELACIO drain to the left [id number] amputation. This is why he is in rehab. The patient has end-stage renal disease and has dialysis on Saturday. The patient stated that the last time that he had any antibiotics was about a month ago for his foot. The patient stated that he has been having diarrhea for months. He did not notice any blood in his stools. He said sometimes he has up to 10 stools a day but other days he only has 2 or 3. He said that the [facility] was giving him something for the diarrhea. The ER provider did a stool for occult blood and found that it was positive. But his hemoglobin is typically anywhere from 7.5-8.4. The patient stated that it was reported that he has a low hemoglobin and that is why he was sent to the emergency room. His hemoglobin here was 5.6. He was given 1 unit packed red blood cells.. The patient was made NPO. However he is diabetic and his blood sugar was down in the 70s so allowed him to ESBL tonight. First blood sugar was 101 in that it was 76. The patient is being admitted to inpatient on the date of service of 12/24/2019 Chief Complaint: Diarrhea Review of Systems Review of Systems: Narrative: The patient denies any shortness of breath. But he has some generalized weakness. All systems reviewed & are unremarkable except as noted in HPI and below Constitutional: Constitutional: Reports as per HPI and Reports no additional constitutional complaints Eyes: Eyes: Reports as per HPI and Reports no additional eye complaints ENT: Reports system reviewed and no additional complaints, except as documented and Reports Normal hearing present Cardiovascular: Cardiovascular: Reports no additional cardiovascular complaints Respiratory: Respiratory: Reports no additional respiratory complaints and Reports no additional respiratory complaints Gastrointestinal: Gastrointestinal: Reports as per HPI and Reports no additional gastrointestinal complaints Musculoskeletal: Musculoskeletal: Reports no additional musculoskeletal complaints Integumentary/Breasts: Skin/Breast: Reports system reviewed and no additional complaints, except as docu and Reports as per HPI Neurologic: Reports system reviewed and no additional complaints, except as documented, Reports as per HPI and Reports Normal hearing present Psychiatric: Psychiatric: Reports no additional psychiatric complaints and Reports as per HPI Endocrine: Endocrine: Reports no additional endocrine complaints Hematologic/Lymphatic: Hematologic/Lymphatic: Reports no additional hematologic/lymphatic complaints Allergic/Immunologic: Allergic/Immunologic: Reports no additional allergic/immunologic complaints [facility] Past Medical History Medical History (Updated 12/23/20 @ 23:34 by Stephanie Mcclain NP) 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 heart failure Last echo 06/06/2020 EF approximately 35-40% and diastolic dysfunction NATAN (acute kidney injury) Anemia Anemia of chronic disease Anxiety and depression Arthritis Below-knee amputation of left lower extremity with complication CAD (coronary artery disease) CABG x4 2017, Lexiscan stress test January 2020 moderate sized mild partially reversible perfusion defect involving inferior wall consistent with mixed ischemia and infarct, large severe partially reversible perfusion defect involving the anterior lateral and inferior lateral wall consistent with mixed ischemia infarct, small mild partially reversible freezing defect involving left ventricular apex and mid anterior segment consistent with mix ischemia and infarct with EF of 29% Cardiac arrhythmia Went into Afib after CABG 2018 Cataract Right cataract pending surgery Diabetes Hemoglobin A1c of 11.3
[2020-12-24] VITALS (33 sets, daily range): BP systolic 144–167; BP diastolic 60–87; PULSE 71–87; RESP 16–20; TEMP 36–36.7; O2SAT 99–100
[2020-12-24 00:40] LABS: Hematocrit 21.2 % (42.0-52.0)
[2020-12-24 00:53] LABS: Anion Gap 7 mmol/L (8-16); Blood Urea Nitrogen 53 mg/dL (9-20); Calcium 8.3 mg/dL (8.4-10.2); Carbon Dioxide 28 mmol/L (22-30); Chloride 107 mmol/L (98-107); Estimated CRCL calculation 13 ml/min; Estimated Glomerular Filt Rate 9; Glucose 86 mg/dL (75-110); Potassium 5.6 mmol/L (3.4-5.0); Sodium 142 mmol/L (137-145)
[2020-12-24 00:55] LABS: Hemoglobin 6.4 g/dL (14.0-18.0)
[2020-12-24 05:20] LABS: Basophils Absolute Auto 0.1 K/mm3 (0.0-0.1); Basophils Percent Auto 0.6 % (0.2-1.2); Eosinophils Absolute Auto 0.3 K/mm3 (0-0.3); Eosinophils Percent Auto 3.1 % (0-4.4); Hematocrit 21.2 % (42.0-52.0); Immature Granulocyte Percent A 0.9 % (0-0.5); Lymphocytes Absolute Auto 0.76 K/mm3 (0.9-3.2); Mean Corpuscular HGB Conc 30.7 g/dl (32-36); Mean Corpuscular Hemoglobin 31.4 pg (26-34); Mean Corpuscular Volume 102.4 fl (80-100); Mean Platelet Volume 9.9 fl (7.4-10.4); Monocytes Percent Auto 8.9 % (2.6-8.5); Neutrophils Absolute Auto 8.6 K/mm3 (1.3-6.7); Neutrophils Percent Auto 79.5 % (45.5-73.1); Platelet Count Result 303 k/mm3 (150-375); Red Blood Count 2.07 M/mm3 (4.6-6.20); Red Cell Distribution Width 16.6 % (11.5-14.5); White Blood Count 10.8 K/mm3 (4.5-10.0)
[2020-12-24 05:36] LABS: Alanine Aminotransferase 10 U/L (4-50); Alkaline Phosphatase 71 U/L (38-126); Anion Gap 11 mmol/L (8-16); Aspartate Amino Transferase 23 U/L (17-59); Bilirubin,Total 0.5 mg/dL (0.2-1.3); Blood Urea Nitrogen 54 mg/dL (9-20); Calcium 8.3 mg/dL (8.4-10.2); Carbon Dioxide 25 mmol/L (22-30); Chloride 107 mmol/L (98-107); Estimated CRCL calculation 13 ml/min; Estimated Glomerular Filt Rate 9; Glucose 85 mg/dL (75-110); Magnesium 2.1 mg/dL (1.6-2.3); Phosphorus 7.1 mg/dL (2.5-4.5); Potassium 5.2 mmol/L (3.4-5.0); Sodium 143 mmol/L (137-145)
[2020-12-24 05:37] LABS: Glucose Point of Care 81 (65-105)
[2020-12-24 05:48] LABS: Hemoglobin 6.5 g/dL (14.0-18.0)
[2020-12-24 06:42] LABS: Glucose Point of Care 74 (65-105)
[2020-12-24] MEDS: SODIUM CHLORIDE 0.9% IV 250 ML 30 ML IV CONT (07:15)
[2020-12-24] MEDS: DEXTROSE 50% 25 GM/50 ML SYRINGE IV PUSH ×2 (08:55→17:18)
[2020-12-24 09:30] LABS: Glucose Point of Care 100 (65-105)
[2020-12-24 09:30] LABS: Glucose Point of Care 68 (65-105)
--- NOTE | 2020-12-24 09:30 | PM.CNNEP ---
Assessment and Plan Assessment and plan (1) ESRD (end stage renal disease): Code(s): N18.6 - End stage renal disease Status: Acute Assessment and Plan: Kobi has end-stage renal disease. He is going to get dialysis today. His potassium is a little high so we will do him on a 2 K bath. Volume status looks okay. We will try for 1 or 2L but watch his blood pressure closely. (2) Anemia: Code(s): D64.9 - Anemia, unspecified Status: Acute Assessment and Plan: The patient's hemoglobin is low. It dropped from 7 to the mid 5s in a week. He has blood in his stools. Will check iron levels to see if he needs iron. Will have a stool sample for occult Blood sent for official purposes. Dr. Perez is going to see him. (3) GI bleed: Qualifiers: GI bleed type/associated pathology: melena Qualified Code(s): K92.1 - Melena Code(s): K92.2 - Gastrointestinal hemorrhage, unspecified Status: Acute Assessment and Plan: Dr Perez is going to see him (4) Hyperkalemia: Code(s): E87.5 - Hyperkalemia Status: Acute Assessment and Plan: Potassium is a little high probably because of the blood in the stool. He will be dialyzed on a low-potassium bath (5) Hypertension: Code(s): I10 - Essential (primary) hypertension Status: Acute Assessment and Plan: Blood pressure is doing pretty well. He is on hydralazine and metoprolol. (6) CAD (coronary artery disease), autologous vein bypass graft: Code(s): I25.810 - Atherosclerosis of coronary artery bypass graft(s) without angina pectoris Status: Acute Assessment and Plan: The patient is not having any chest pain or shortness of breath. (7) CHF (congestive heart failure): Code(s): I50.9 - Heart failure, unspecified Status: Acute Assessment and Plan: Will follow the volume status. (8) Diabetes mellitus with hyperglycemia: Qualifiers: Diabetes mellitus adjunct faculty for medical terminology insulin use: with adjunct faculty for medical terminology use Diabetes mellitus type: type 2 Qualified Code(s): E11.65 - Type 2 diabetes mellitus with hyperglycemia; Z79.4 - assisted (current) use of insulin Code(s): E11.65 - Type 2 diabetes mellitus with hyperglycemia Status: Chronic Assessment and Plan: Is on Accu-Cheks and sliding-scale insulin. History of Present Illness Reason for Consult Consult date: 12/25/20 Chief Complaint Chief complaint: anemia, GI bleed, DM, ESRD History of Present Illness Narrative: At rate is a very pleasant 55-year-old gentleman who has multiple medical problems including diabetes, end-stage renal disease on dialysis Tuesdays and Saturdays, peripheral vascular disease status post left uzhrw-esk-quuy amputation, anxiety, depression, arthritis, coronary disease status post bypass congestive heart failure with an EF of 29%, transient atrial fibrillation post bypass 3 years ago, hyperlipidemia, sleep apnea. The patient was recently at [facility] and was discharged about a week ago. At that time he was being dialyzed at [place] and had a hemoglobin done which was 7.1. Repeat hemoglobin was done on and this came back yesterday showing 5.6. We called the patient and he was not having any symptoms although he has always generally weak. Because of his cardiac issues and other comorbidities we felt it best for him just to go to the emergency room to get a transfusion because it was Saturday and we could not get 1 as an outpatient. The patient was seen in the ER he was admitted. He was given a unit of blood last night is getting a 2nd unit now. Apparently the ER checked him for blood and he has blood in his stool. The patient says he feels okay right now. No chest pain or shortness of breath. He does not remember seeing black bloody stools at home. He has had blood transfusions in the past but has never been evaluated from the GI standpoint. Review of
[2020-12-24 12:28] LABS: Glucose Point of Care 80 (65-105)
--- NOTE | 2020-12-24 12:45 | PCDIET ---
pt to dialysis via bed
--- NOTE | 2020-12-24 12:54 | WPDGICN ---
Assessment and Plan Assessment and plan (1) GI bleed: Qualifiers: GI bleed type/associated pathology: melena Qualified Code(s): K92.1 - Melena Code(s): K92.2 - Gastrointestinal hemorrhage, unspecified Status: Acute Assessment and Plan: no overt gib but found FOBT + he already had colonoscopy last year, baseline hb is low ~ 7 (multiple comorbidities including dialysis, DM, etc) will do EGD on Saturday, also sigmoidoscopy (mostly to obtain random colon bx because ongoing chronic diarrhea that is affecting his QOL) (2) Acute on chronic blood loss anemia: Code(s): D62 - Acute posthemorrhagic anemia Status: Acute Assessment and Plan: transfusion to keep hb>7 multifactorial egd and sigmoidoscopy Saturday (3) Chronic diarrhea: Code(s): K52.9 - Noninfective gastroenteritis and colitis, unspecified Status: Chronic Assessment and Plan: probably from DM, also he is on iv antibiotics, and multiple medications sigmoidoscopy with random biopsies to assess for microscopic colitis, etc (4) ESRD (end stage renal disease): Code(s): N18.6 - End stage renal disease Status: Acute Assessment and Plan: on dialysis by nephrology (5) Diabetes mellitus with multiple complications: Code(s): E11.8 - Type 2 diabetes mellitus with unspecified complications Status: Acute Assessment and Plan: on meds (6) Below-knee amputation of left lower extremity with complication: Code(s): S88.112A - Complete traumatic amputation at level between knee and ankle, left lower leg, initial encounter Status: Inactive Assessment and Plan: GELACIO drain, by primary team (7) Diabetes mellitus with hyperglycemia: Qualifiers: Diabetes mellitus type: type 2 Diabetes mellitus penitentiary insulin use: with lobsterman use Qualified Code(s): E11.65 - Type 2 diabetes mellitus with hyperglycemia; Z79.4 - lobsterman (current) use of insulin Code(s): E11.65 - Type 2 diabetes mellitus with hyperglycemia Status: Chronic (8) Chronic combined systolic and diastolic heart failure: Code(s): I50.42 - Chronic combined systolic (congestive) and diastolic (congestive) heart failure Status: Acute GI Consult Note Consult date/time: 12/24/20 12:54 Reason for consult: acute on chronic blood loss anemia, chronic diarrhea, FOBT + HPI: Kobi Salter is a 55 year old male with multiple medical problems including atherosclerotic heart disease, systolic heart failure, coronary artery bypass grafting, diabetes mellitus, atrial fibrillation, end-stage renal disease on dialysis Tuesdays and Saturdays for last 3 months, peripheral vascular disease status post left hclhj-shi-fkfu amputation with recent infection of stump discharged from [facility] about 1 week ago and still has GELACIO drain. He also has chronic anemia with hb ~7, then had labs that showed Hb 5.6 and patient was called to come to ER for further evaluation. Patient chronic fatigue but denies overt GIB, ER provider found FOBT + and admitted to hospital. He denies blood in stools or abdominal pain. He also has chronic diarrhea for almost a year, in fact Dr Bernstein evaluated him with a colonoscopy 06/2020 that showed only small size diverticulosis in sigmoid and hemorrhoids, colon mucosa normal otherwise but no biopsies obtained. His main complain is still ongoing diarrhea at anytime but worse after eating, several times had accidents. He uses imodium but still not helping much. Noted he is on antibiotics for stump infection. Review of Systems Constitutional: Constitutional: Reports fatigue Eyes: Eyes: Denies blurry vision ENT: Reports Normal hearing present Cardiovascular: Cardiovascular: Denies chest pain Respiratory: Respiratory: Denies cough Gastrointestinal: Gastrointestinal: Denies melena and Reports diarrhea Genitourinary: Comments: on dialysis Musculoskeletal: Musculoskeleta
[2020-12-24 13:05] LABS: Iron 43 ug/dL (49-181)
[2020-12-24 13:05] LABS: Hematocrit 25.7 % (42.0-52.0); Immature Reticulocyte Fraction 27.8 % (3.0-15.9); Reticulocyte Hemoglobin Conten 30.5 pg (28.2-35.7); Reticulocyte Percent 2.47 % (0.7-4.3); Reticulocytes Absolute 0.06 B/L (32.2-175.7)
[2020-12-24 13:14] LABS: Percent Iron Saturation 19 % (20-50)
[2020-12-24 14:58] LABS: Hepatitis B Surface Antigen Negative (Negative)
[2020-12-24 15:16] LABS: Hepatitis B Surface Anti Res Negative
[2020-12-24] MEDS: EPOETIN ALFA-EPBX 10,000 UNITS/ML VIAL 10000 UNITS IV PUSH (15:31)
[2020-12-24] MEDS: SODIUM CHLORIDE 0.9% IV 1,000 ML 125 ML IV CONT (15:33)
--- NOTE | 2020-12-24 17:10 | PC.NURSE ---
pt returned to floor from dialysis, now has diet order, given menu to order will check BS
[2020-12-24 17:29] LABS: Hematocrit 26.1 % (42.0-52.0); Hemoglobin 8.2 g/dL (14.0-18.0)
[2020-12-24 17:45] LABS: Glucose Point of Care 64 (65-105)
[2020-12-24 17:45] LABS: Glucose Point of Care 103 (65-105)
--- NOTE | 2020-12-24 18:03 | PM.IMPN ---
Progress Note: A&P Additional Plan (1) GI bleed: (2) Hyperkalemia: (3) Anemia:of chronic disease due to the end-stage renal disease w ABLA (4) Below-knee amputation of left lower extremity with complication: (5) Diabetes mellitus with multiple complications: (6) ESRD (7) Wound of foot: (8) CHF (congestive heart failure): (9) Hypertension Hold aspirin given 1 unit of packed red blood cells H&H every 6 hours. Occult blood +. GI consult has already been placed. No anticoagulation due to GI bleed. ongoing diarrhea stool cultures were obtained. consult wound care x GELACIO drain and device in the left ciluz-guc-kpsk amputation and a dressing to the right foot. Accu-Cheks every 6 hours. cont amlodipine and Coreg. 12/24/20 Wound care Voiding symptoms continue Flomax HCTZ t.i.d. for anxiety outpatient chart corrected to hydroxyzine Monitor for ongoing GI bleeding Anticipate scope on Saturday Continue current care nephro and gastro following Time Spent With Patient Time with patient: Greater than 35 minutes Subjective Date/time seen: 12/24/20 18:03 Patient without complaints at time my interview. His sister is bedside. All questions answered. They question whether not Wound Care will be consulted. Have assured them that wound Care is consulted and will follow-up with him in the meantime RN will perform wound care bedside. Patient denies any bleeding feeling better after blood transfusion. Exam Narrative: Exam Narrative: GEN: NAD, AAOx3, cooperative pale appearing HEENT: NCAT, MMM, EOMI Neck: no JVD Heart: S1S2 RRR Lungs: CTA B/l Abd: soft, NT, ND, bowel sounds normoactive Ext: moves all, no cyanosis, no clubbing, no edema, R foot and L limb stump covered by clean dry dressings Neuro: slow cognition, moves all extremities equally, unsteady gait Psych: mood and congruent depressed Objective Data Vital Signs Vital Signs: Vital Signs - 24 hr 12/23/20 18:24 12/23/20 18:48 12/23/20 19:09 Temperature 98.5 F 98.9 F Pulse Rate 78 76 74 Respiratory Rate 20 18 15 Blood Pressure 108/56 L 115/50 L 120/53 L Pulse Oximetry 100 100 100 12/23/20 19:17 12/23/20 19:59 12/23/20 20:20 Temperature 99.1 F 97.5 F L Pulse Rate 73 73 72 Respiratory Rate 19 24 H 16 Blood Pressure 117/54 L 114/51 L 118/54 L Pulse Oximetry 100 100 100 12/23/20 21:20 12/23/20 21:51 12/23/20 22:30 Temperature 97.8 F 97.5 F L Pulse Rate 72 75 73 Respiratory Rate 18 18 Blood Pressure 128/55 L 136/60 Pulse Oximetry 100 100 12/24/20 00:00 12/24/20 04:00 12/24/20 05:54 Temperature 97.1 F L Pulse Rate 72 72 73 Respiratory Rate 18 Blood Pressure 153/70 H Pulse Oximetry 100 12/24/20 07:35 12/24/20 07:50 12/24/20 08:00 Temperature 97 F L 97.1 F L Pulse Rate 74 75 76 Respiratory Rate 20 20 Blood Pressure 148/60 H 146/61 H Pulse Oximetry 100 100 12/24/20 08:11 12/24/20 08:50 12/24/20 09:50 Temperature 97.5 F L 97.1 F L Pulse Rate 71 76 Respiratory Rate 18 18 Blood Pressure 147/68 H 144/72 H Pulse Oximetry 100 100 100 12/24/20 10:50 12/24/20 12:00 12/24/20 13:00 Temperature 97.3 F L 98.1 F Pulse Rate 76 74 76 Respiratory Rate 18 20 Blood Pressure 152/68 H 156/80 H Pulse Oximetry 100 12/24/20 13:16 12/24/20 13:30 12/24/20 13:45 Temperature Pulse Rate 76 79 76 Respiratory Rate Blood Pressure 156/80 H 152/80 H 159/82 H Pulse Oximetry 12/24/20 14:00 12/24/20 14:15 12/24/20 14:30 Temperature Pulse Rate 74 76 76 Respiratory Rate Blood Pressure 158/81 H 167/81 H 159/82 H Pulse Oximetry 12/24/20 14:45 12/24/20 15:00 12/24/20 15:15 Temperature Pulse Rate 73 73 75 Respiratory Rate Blood Pressure 164/87 H 159/76 H 160/84 H Pulse Oximetry 12/24/20 15:30 12/24/20 15:45 12/24/20 16:00 Temperature Pulse Rate 73 74 78 Respiratory Rate Blood Pressure 159/82 H 161/80 H 162/87 H Pulse Oximetry 12/24/20 16:15 12/24/20 16:30
[2020-12-24] MEDS: CHOLECALCIFEROL 1,000 UNITS TABLET 2000 UNITS PO (18:12)
[2020-12-24] MEDS: MULTIVITAMINS THERAPEUTIC TAB (*BKC) 1 TABLET PO (18:13)
[2020-12-24] MEDS: FOLIC ACID 1 MG TABLET PO (18:13)
[2020-12-24] MEDS: ISOSORBIDE DINITRATE 20 MG TABLET 40 MG PO (18:13)
[2020-12-24] MEDS: TAMSULOSIN HCL 0.4 MG CAPSULE PO (18:13)
[2020-12-24] MEDS: SEVELAMER CARBONATE 800 MG TABLET 1600 MG PO (18:14)
[2020-12-24] MEDS: FUROSEMIDE 80 MG TABLET PO (18:14)
[2020-12-24] MEDS: OMEGA 3 POLYUNSAT FATTY ACIDS 1 GM CAP PO (18:14)
[2020-12-24] MEDS: CLOPIDOGREL BISULFATE 75 MG TABLET PO (18:15)
[2020-12-24] MEDS: ATORVASTATIN 40 MG TABLET PO (18:15)
[2020-12-24] MEDS: GABAPENTIN 100 MG CAPSULE 200 MG PO (21:36)
[2020-12-24] MEDS: COLLAGENASE OINT 30 GM TUBE 1 APPLIC TOPICAL (21:36)
[2020-12-24 21:53] LABS: Glucose Point of Care 157 (65-105)
[2020-12-25] VITALS (10 sets, daily range): BP systolic 110–134; BP diastolic 50–66; PULSE 68–83; RESP 16–21; TEMP 36.1–36.3; O2SAT 92–100
[2020-12-25] MEDS: ACETAMINOPHEN 500 MG TABLET 1000 MG PO ×2 (04:57→12:01)
[2020-12-25 05:11] LABS: Hemoglobin 7.3 g/dL (14.0-18.0); Mean Corpuscular HGB Conc 31.7 g/dl (32-36); Mean Corpuscular Hemoglobin 30.5 pg (26-34); Mean Corpuscular Volume 96.2 fl (80-100); Mean Platelet Volume 9.8 fl (7.4-10.4); Platelet Count Result 340 k/mm3 (150-375); Red Blood Count 2.39 M/mm3 (4.6-6.20); Red Cell Distribution Width 17.1 % (11.5-14.5)
[2020-12-25 05:31] LABS: Albumin Level 2.9 g/dL (3.5-5.1); Anion Gap 2 mmol/L (8-16); Blood Urea Nitrogen 29 mg/dL (9-20); Calcium 7.9 mg/dL (8.4-10.2); Carbon Dioxide 34 mmol/L (22-30); Chloride 103 mmol/L (98-107); Estimated CRCL calculation 22 ml/min; Estimated Glomerular Filt Rate 17; Glucose 110 mg/dL (75-110); Phosphorus 3.9 mg/dL (2.5-4.5); Potassium 4.1 mmol/L (3.4-5.0); Sodium 139 mmol/L (137-145)
[2020-12-25] MEDS: ISOSORBIDE DINITRATE 20 MG TABLET 40 MG PO ×3 (08:15→16:54)
[2020-12-25] MEDS: METOPROLOL TARTRATE 12.5 MG TABLET PO (08:15)
[2020-12-25] MEDS: FUROSEMIDE 80 MG TABLET PO ×2 (08:16→16:54)
[2020-12-25] MEDS: FOLIC ACID 1 MG TABLET PO (08:16)
[2020-12-25] MEDS: TAMSULOSIN HCL 0.4 MG CAPSULE PO ×2 (08:16→16:54)
[2020-12-25] MEDS: CLOPIDOGREL BISULFATE 75 MG TABLET PO (08:16)
--- NOTE | 2020-12-25 08:20 | PM.PNNEP ---
Progress Note: A&P Assessment and Plan (1) ESRD (end stage renal disease): Code(s): N18.6 - End stage renal disease Status: Acute Assessment and Plan: Kobi has end-stage renal disease. Volume status looks okay. Potassium is okay. He will get dialysis on Saturday (2) Anemia: Code(s): D64.9 - Anemia, unspecified Status: Acute Assessment and Plan: The patient's hemoglobin is low. He received 2units of blood yesterday. Dr. Perez saw the patient. (3) GI bleed: Qualifiers: GI bleed type/associated pathology: melena Qualified Code(s): K92.1 - Melena Code(s): K92.2 - Gastrointestinal hemorrhage, unspecified Status: Acute Assessment and Plan: Dr Perez is going to do an EGD and sigmoidoscopy tomorrow. (4) Hyperkalemia: Code(s): E87.5 - Hyperkalemia Status: Acute Assessment and Plan: Resolved (5) Hypertension: Code(s): I10 - Essential (primary) hypertension Status: Acute Assessment and Plan: Blood pressure is under good control (6) CAD (coronary artery disease), autologous vein bypass graft: Code(s): I25.810 - Atherosclerosis of coronary artery bypass graft(s) without angina pectoris Status: Acute Assessment and Plan: The patient is not having any chest pain or shortness of breath. (7) CHF (congestive heart failure): Code(s): I50.9 - Heart failure, unspecified Status: Acute Assessment and Plan: Will follow the volume status. (8) Diabetes mellitus with hyperglycemia: Qualifiers: Diabetes mellitus type: type 2 Diabetes mellitus terminal makeup operator insulin use: with terminal makeup operator use Qualified Code(s): E11.65 - Type 2 diabetes mellitus with hyperglycemia; Z79.4 - group home (current) use of insulin Code(s): E11.65 - Type 2 diabetes mellitus with hyperglycemia Status: Chronic Assessment and Plan: Is on Accu-Cheks and sliding-scale insulin. Subjective Date/time seen: 12/25/20 08:20 Interval history: Kobi is feeling better today. No blood in his stools that he can see. No chest pain or shortness of breath. Feeling okay. Review of Systems Cardiovascular: Cardiovascular: Reports no additional cardiovascular complaints Respiratory: Respiratory: Reports no additional respiratory complaints Gastrointestinal: Gastrointestinal: Reports no additional gastrointestinal complaints Genitourinary: Genitourinary: Reports no additional male genitourinary complaints Exam Narrative: Exam Narrative: WDWN in NAD skin no rash head ncat lungs clear cor reg no rub abd BS+ nontender and soft ext no edema. Objective Data Vital Signs Vital Signs: Vital Signs - 24 hr 12/24/20 08:50 12/24/20 09:50 12/24/20 10:50 Temperature 36.4 C L 36.2 C L 36.3 C L Pulse Rate 71 76 76 Respiratory Rate 18 18 18 Blood Pressure 147/68 H 144/72 H 152/68 H Pulse Oximetry 100 100 100 12/24/20 12:00 12/24/20 13:00 12/24/20 13:16 Temperature 36.7 C Pulse Rate 74 76 76 Respiratory Rate 20 Blood Pressure 156/80 H 156/80 H Pulse Oximetry 12/24/20 13:30 12/24/20 13:45 12/24/20 14:00 Temperature Pulse Rate 79 76 74 Respiratory Rate Blood Pressure 152/80 H 159/82 H 158/81 H Pulse Oximetry 12/24/20 14:15 12/24/20 14:30 12/24/20 14:45 Temperature Pulse Rate 76 76 73 Respiratory Rate Blood Pressure 167/81 H 159/82 H 164/87 H Pulse Oximetry 12/24/20 15:00 12/24/20 15:15 12/24/20 15:30 Temperature Pulse Rate 73 75 73 Respiratory Rate Blood Pressure 159/76 H 160/84 H 159/82 H Pulse Oximetry 12/24/20 15:45 12/24/20 16:00 12/24/20 16:15 Temperature Pulse Rate 74 78 74 Respiratory Rate Blood Pressure 161/80 H 162/87 H 163/81 H Pulse Oximetry 12/24/20 16:30 12/24/20 16:45 12/24/20 16:50 Temperature Pulse Rate 79 78 74 Respiratory Rate Blood Pressure 162/69 H 161/84 H 160/80 H
[2020-12-25] MEDS: COLLAGENASE OINT 30 GM TUBE 1 APPLIC TOPICAL (08:44)
[2020-12-25] MEDS: SEVELAMER CARBONATE 800 MG TABLET 1600 MG PO ×3 (09:22→17:58)
[2020-12-25] MEDS: ATORVASTATIN 40 MG TABLET PO (09:28)
[2020-12-25] MEDS: FENOFIBRATE,MICRONIZED 48 MG TABLET PO (09:28)
[2020-12-25 10:02] LABS: Add Urine Microscopic? YES; Appearance Urine Turbid (Clear); Bilirubin Urine Negative (Negative); Blood Urine 1+ (Negative); Color Urine Yellow (Yellow); Glucose Urine UA Negative (Negative); Ketones Urine Negative (Negative); Leukocyte Esterase Ur 2+ LEU/UL (Negative); Mucus Urine Heavy /lpf; Nitrate Urine Negative (Negative); Protein Urine 2+ mg/dL (Negative); RBC Urine >75 /hpf (0-2); Specific Grav Ur 1.013 (1.001-1.035); Urobilinogen Urine Negative mg/dL (<2.0); WBC Clumps Urine Present /HPF; WBC Urine >75 /hpf
--- NOTE | 2020-12-25 10:52 | PM.IMPN ---
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 Occult blood +. GI consult has already been placed. No anticoagulation due to GI bleed. ongoing diarrhea stool cultures were obtained. consult wound care x GELACIO drain and device in the left [id number] amputation and a dressing to the right foot. Accu-Cheks every 6 hours. cont amlodipine and Coreg. 12/24/20 Wound care Voiding symptoms continue Flomax HCTZ t.i.d. for anxiety outpatient chart corrected to hydroxyzine Monitor for ongoing GI bleeding Anticipate scope on Saturday Continue current care nephro and gastro following 12/25/20 Patient reports ongoing irritative voiding symptoms. UA w reflex and post void residual ultrasound ordered Flomax b.i.d. straight cath -> insert mccann if cont to retain repeat bladder scan in 4 hours mccann if > 300cc wound care discussed w RN and her recommendations appreciated Subjective Date/time seen: 12/25/20 10:52 Patient reports that he did not sleep very well last night he was up most of the night trying to urinate. This has been discussed with RN and request for by bedside bladder scan given. Otherwise patient is doing okay. No GI Bleeding reported Review of Systems Review of Systems: All systems reviewed & are unremarkable except as noted in HPI and below Exam Narrative: Exam Narrative: GEN: NAD, AAOx3 HEENT: NCAT, MMM, EOMI Neck: no JVD FROM Ext: moves all, no cyanosis, no clubbing, no edema, R foot and L limb stump covered by clean dry dressings Neuro: no focal deficits CN intact Psych: mood and congruent Objective Data Vital Signs Vital Signs: Vital Signs - 24 hr 12/24/20 12:00 12/24/20 13:00 12/24/20 13:16 Temperature 98.1 F Pulse Rate 74 76 76 Respiratory Rate 20 Blood Pressure 156/80 H 156/80 H Pulse Oximetry 12/24/20 13:30 12/24/20 13:45 12/24/20 14:00 Temperature Pulse Rate 79 76 74 Respiratory Rate Blood Pressure 152/80 H 159/82 H 158/81 H Pulse Oximetry 12/24/20 14:15 12/24/20 14:30 12/24/20 14:45 Temperature Pulse Rate 76 76 73 Respiratory Rate Blood Pressure 167/81 H 159/82 H 164/87 H Pulse Oximetry 12/24/20 15:00 12/24/20 15:15 12/24/20 15:30 Temperature Pulse Rate 73 75 73 Respiratory Rate Blood Pressure 159/76 H 160/84 H 159/82 H Pulse Oximetry 12/24/20 15:45 12/24/20 16:00 12/24/20 16:15 Temperature Pulse Rate 74 78 74 Respiratory Rate Blood Pressure 161/80 H 162/87 H 163/81 H Pulse Oximetry 12/24/20 16:30 12/24/20 16:45 12/24/20 16:50 Temperature Pulse Rate 79 78 74 Respiratory Rate Blood Pressure 162/69 H 161/84 H 160/80 H Pulse Oximetry 12/24/20 17:00 12/24/20 17:50 12/24/20 20:00 Temperature 98.1 F 97.1 F L Pulse Rate 78 85 86 Respiratory Rate 20 16 Blood Pressure 167/81 H 163/72 H Pulse Oximetry 99 12/24/20 21:06 12/25/20 00:00 12/25/20 04:00 Temperature 96.8 F L Pulse Rate 87 83 77 Respiratory Rate 20 Blood Pressure 150/66 H Pulse Oximetry 100 12/25/20 05:49 12/25/20 08:00 12/25/20 08:15 Temperature 97.4 F L Pulse Rate 76 68 76 Respiratory Rate 20 Blood Pressure 134/66 Pulse Oximetry 92 Intake/Output Intake/Output: Intake & Output 12/22/20 12/23/20 12/24/20 12/25/20 23:59 23:59 23:59 23:59 Intake Total 1350 660 380 Output Total 3170 1300 Balance 7449 -0264 -320 Meds/Results Medications: Active Medications Generic Name Dose Route Start Last Admin Trade Name Freq PRN Reason Stop Dose Admin Acetaminophen 1,000 mg 12/02
[2020-12-25] MEDS: MULTIVITAMINS THERAPEUTIC TAB (*BKC) 1 TABLET PO (11:10)
--- NOTE | 2020-12-25 11:10 | PCPTNOTE ---
Spoke with pt regarding therapy needs. Pt was working on slide board transfers FWB right, prior to right foot complications. Pt reports he requires weightbearing on right for ability to complete slide board. Currently, it is not safe to risk transfer training with status of right heel and toe surgery. The patient is I with bed exercises and bed mobility and can sit bedside. No skilled PT needs until right foot status is approved for weightbearing.
[2020-12-25] MEDS: CHOLECALCIFEROL 1,000 UNITS TABLET 2000 UNITS PO (11:11)
[2020-12-25] MEDS: OMEGA 3 POLYUNSAT FATTY ACIDS 1 GM CAP PO (11:11)
--- NOTE | 2020-12-25 11:42 | PCOTNOTE ---
Patient declined OT evaluation this date due to pain and fatigue. Patient to be consulted by wound care for wound om (R) foot. Will attempt OT evaluation tomorrow after wound care consults and provides clarification on weight bearing status.
[2020-12-25 12:47] LABS: Glucose Point of Care 87 (65-105)
[2020-12-25 12:47] LABS: Glucose Point of Care 140 (65-105)
[2020-12-25] MEDS: BISACODYL 5 MG TABLET EC 20 MG PO (16:31)
[2020-12-25] MEDS: polyethylene glycoL 3350 238 GM BOTTLE PO (16:32)
[2020-12-25 18:19] LABS: Glucose Point of Care 173 (65-105)
[2020-12-25] MEDS: GABAPENTIN 100 MG CAPSULE 200 MG PO (21:08)
[2020-12-25 21:37] LABS: Glucose Point of Care 177 (65-105)
[2020-12-26] VITALS (15 sets, daily range): BP systolic 88–120; BP diastolic 43–61; PULSE 70–86; RESP 18–23; TEMP 36.4–36.8; O2SAT 94–100; BMI 24.2
[2020-12-26 05:36] LABS: Hematocrit 23.8 % (42.0-52.0); Hemoglobin 7.6 g/dL (14.0-18.0); Mean Corpuscular HGB Conc 31.9 g/dl (32-36); Mean Corpuscular Hemoglobin 30.8 pg (26-34); Mean Corpuscular Volume 96.4 fl (80-100); Mean Platelet Volume 9.6 fl (7.4-10.4); Platelet Count Result 344 k/mm3 (150-375); Red Blood Count 2.47 M/mm3 (4.6-6.20); Red Cell Distribution Width 16.7 % (11.5-14.5); White Blood Count 9.9 K/mm3 (4.5-10.0)
[2020-12-26 05:53] LABS: Albumin Level 2.8 g/dL (3.5-5.1); Anion Gap 5 mmol/L (8-16); Blood Urea Nitrogen 37 mg/dL (9-20); Calcium 7.7 mg/dL (8.4-10.2); Carbon Dioxide 32 mmol/L (22-30); Chloride 100 mmol/L (98-107); Estimated CRCL calculation 17 ml/min; Estimated Glomerular Filt Rate 13; Glucose 88 mg/dL (75-110); Potassium 4.3 mmol/L (3.4-5.0); Sodium 137 mmol/L (137-145)
--- NOTE | 2020-12-26 06:10 | PC.NURSE ---
Dr Mary notified pt is not having clear bowel movements at this time. No new orders received.
--- NOTE | 2020-12-26 07:45 | PC.NURSE ---
To GI Lab via [facility].
--- NOTE | 2020-12-26 08:23 | WPDANESEPPF ---
Anes - Initial Pre Proc Eval Procedure: Operation Date: 12/26/20 13:30 Proposed Procedures p Esophagogastroduodenoscopy - Rakan Mary MD s Flexible Sigmoidoscopy - Rakan Mary MD Date/Time: 12/26/20 08:23 Surgeon: Lynne Olivas MD Pre Op Diagnosis: anemia, GI bleed, DM, ESRD Patient Data Age: 55 Gender: M Height: 6 ft Weight: 80.9 kg Last Vital Signs Temp 97.5 F L 12/26/20 08:13 Pulse 78 12/26/20 08:13 Resp 18 12/26/20 08:13 BP 110/61 12/26/20 08:13 Pulse Ox 100 12/26/20 08:13 Allergies Allergy/AdvReac Type Severity Reaction Status Date / Time Penicillins Allergy Unknown Unknown Verified 12/26/20 08:11 bee venom protein (honey bee) Allergy Swelling Verified 12/26/20 08:11 Home Medications Medication Instructions Recorded Confirmed Type Lantus U-100 Insulin 8 unit SUBCUT HS 06/01/20 12/23/20 History acetaminophen 1,000 mg PO Q6H PRN 06/01/20 12/23/20 History aspirin 81 mg PO DAILY 06/01/20 12/23/20 History cholecalciferol (vitamin D3) 50 mcg PO DAILY 06/01/20 12/23/20 History [Vitamin D3] ferrous sulfate 325 mg PO DAILY 06/01/20 12/23/20 History multivitamin 1 tablet PO DAILY 06/01/20 12/23/20 History nitroglycerin 0.4 mg SUBLINGUAL Q5-15M PRN 06/01/20 12/23/20 History omega-3 fatty acids-fish oil 1 cap PO DAILY 06/01/20 12/23/20 History miconazole nitrate [Aloe [place] 1 applic TOPICAL Q12HR #0 g 06/14/20 12/23/20 Rx Antifungal (micon)] alogliptin 25 mg PO DAILY 12/23/20 12/23/20 History atorvastatin [Lipitor] 40 mg PO DAILY 12/23/20 12/23/20 History bisacodyl 10 mg RECTAL DAILY PRN 12/23/20 12/23/20 History clopidogrel [Plavix] 75 mg PO DAILY 12/23/20 12/23/20 History collagenase clostridium histo. 1 applic TOPICAL DAILY 12/23/20 12/23/20 History cyclobenzaprine 5 mg PO TID PRN 12/23/20 12/23/20 History daptomycin 850 mg IV QTUTHSA 12/23/20 12/23/20 History fenofibrate micronized 67 mg PO DAILY 12/23/20 12/23/20 History folic acid 1 mg PO DAILY 12/23/20 12/23/20 History furosemide 80 mg PO BID 12/23/20 12/23/20 History gabapentin 200 mg PO HS 12/23/20 12/23/20 History hydralazine 100 mg PO TID PRN 12/23/20 12/23/20 History isosorbide dinitrate 40 mg PO TID 12/23/20 12/23/20 History magnesium citrate [Citroma] 150 ml PO DAILY PRN 12/23/20 12/23/20 History magnesium hydroxide [Milk of 400 mg PO DAILY PRN 12/23/20 12/23/20 History Magnesia] metoprolol tartrate 12.5 mg PO DAILY 12/23/20 12/23/20 History oxycodone 5 mg PO Q4H PRN 12/23/20 12/23/20 History sevelamer carbonate 1,600 mg PO TID 12/23/20 12/23/20 History sodium phosphates [Fleet Enema] 118 ml RECTAL ONCE 12/23/20 12/23/20 History tamsulosin [Flomax] 0.4 mg PO DAILY 12/23/20 12/23/20 History Laboratory Tests 12/25/20 12/25/20 12/25/20 09:25 09:28 12:05 WBC RBC Hgb Hct MCV MCH MCHC RDW Plt Count MPV Sodium Potassium Chloride Carbon Dioxide Anion Gap BUN Creatinine Estim Creat Clear Calc Estimated GFR Glucose POC Capillary Glucose 87 mg/dl mg/dl 140 mg/dl H mg/dl (65-105) (65-105) Calcium Phosphorus Albumin Urine Color Yellow (Yellow) Urine Appearance Turbid H (Clear) Urine pH 7.0 (5.0-9.0) Ur Specific [place] 1.013 (1.001-1.035) Urine Protein 2+ mg/dL H mg/dL (Negative) Urine Glucose (UA) Negative mg/dL mg/dL (Negative) Urine Ketones Negative mg/dL mg/dL (Negative) Ur Blood (Man) 1+ H (Negative) Urine Nitrate Negative (Negative) Urine Bilirubin Negative (Negative) Urine Urobilinogen Negative mg/dL mg/dL (<2.0) Leukocyte Esterase Rfl 2+ TIMBO/UL H TIMBO
[2020-12-26] MEDS: SODIUM CHLORIDE 0.9% IV 500 ML 10 ML IV CONT (08:25)
[2020-12-26 08:29] LABS: Glucose Point of Care 111 (65-105)
--- NOTE | 2020-12-26 09:18 | PCOTNOTE ---
OT evaluation attempted. Patient down in GI lab for procedure/testing and is to be consulted by would betsy this AM. Will attempt OT evaluation at later time when wound care consult is complete
--- NOTE | 2020-12-26 10:19 | PC.NURSE ---
Returned from GI Lab via stretcher.
[2020-12-26] MEDS: CLOPIDOGREL BISULFATE 75 MG TABLET PO (10:25)
[2020-12-26] MEDS: FENOFIBRATE,MICRONIZED 48 MG TABLET PO (10:25)
[2020-12-26] MEDS: FUROSEMIDE 80 MG TABLET PO ×2 (10:25→17:35)
[2020-12-26] MEDS: METOPROLOL TARTRATE 12.5 MG TABLET PO (10:26)
[2020-12-26] MEDS: FOLIC ACID 1 MG TABLET PO (10:26)
[2020-12-26] MEDS: ATORVASTATIN 40 MG TABLET PO (10:27)
[2020-12-26] MEDS: COLLAGENASE OINT 30 GM TUBE 1 APPLIC TOPICAL (10:28)
[2020-12-26] MEDS: TAMSULOSIN HCL 0.4 MG CAPSULE PO ×2 (10:30→17:33)
[2020-12-26] MEDS: SEVELAMER CARBONATE 800 MG TABLET 1600 MG PO ×2 (11:34→17:32)
[2020-12-26] MEDS: CHOLECALCIFEROL 1,000 UNITS TABLET 2000 UNITS PO (11:34)
[2020-12-26] MEDS: MULTIVITAMINS THERAPEUTIC TAB (*BKC) 1 TABLET PO (11:34)
[2020-12-26] MEDS: OMEGA 3 POLYUNSAT FATTY ACIDS 1 GM CAP PO (11:35)
[2020-12-26] MEDS: ISOSORBIDE DINITRATE 20 MG TABLET 40 MG PO ×2 (12:22→17:34)
[2020-12-26 12:34] LABS: Glucose Point of Care 106 (65-105)
--- NOTE | 2020-12-26 13:18 | PM.IMPN ---
Progress Note: A&P Assessment and Plan (1) GI bleed: Qualifiers: GI bleed type/associated pathology: melena Qualified Code(s): K92.1 - Melena Code(s): K92.2 - Gastrointestinal hemorrhage, unspecified Status: Acute Assessment and Plan: Hold aspirin to his end-stage renal disease. However the patient is lower than normal. He was given 1 unit of packed red blood cells. The patient was complaining having some weakness but no shortness of breath. Will recheck H&H every 6 hours. Occult blood. GI consult has already been placed. No anticoagulation due to GI bleed. (2) Hyperkalemia: Code(s): E87.5 - Hyperkalemia Status: Acute Assessment and Plan: The patient had been complaining of some diarrhea and some stool cultures were obtained. However the patient's potassium is still high. He is end-stage renal disease and is due to have dialysis tomorrow. I did consult airframe and powerplant technician. However if patient's potassium continues to be elevated I will need to give him a treatment to lower his potassium. (3) Anemia: Code(s): D64.9 - Anemia, unspecified Status: Acute Assessment and Plan: Anemia of chronic disease due to the end-stage renal disease. However the patient is below his baseline in his stool for occult blood was positive. (4) Below-knee amputation of left lower extremity with complication: Code(s): S88.112A - Complete traumatic amputation at level between knee and ankle, left lower leg, initial encounter Status: Inactive Assessment and Plan: I did consult wound care due to GELACIO drain and device in the left [id number] amputation and a dressing to the right foot. (5) Diabetes mellitus with multiple complications: Code(s): E11.8 - Type 2 diabetes mellitus with unspecified complications Status: Acute Assessment and Plan: Accu-Cheks every 6 hours. With hypoglycemic protocol. Check A1c. The patient tells me that he has been diabetic for about 10 years. He stated that they had gotten out of control. He stated he was over 800 lb at 1 time. (6) Wound of foot: Code(s): S91.309A - Unspecified open wound, unspecified foot, initial encounter Status: Acute Assessment and Plan: Patient has a dressing to the right foot he had a right 5th toe removed in the past. (7) Hypertension: Code(s): I10 - Essential (primary) hypertension Status: Acute Assessment and Plan: We are still reviewing his blood pressure medication looks like he had been on amlodipine and Coreg. The patient stated he had gone and atrial fibrillation after his CABG but is now in sinus rhythm. (8) CHF (congestive heart failure): Code(s): I50.9 - Heart failure, unspecified Status: Acute Assessment and Plan: Last echo was June of last year. Continue with patient's Coreg Additional Plan (1) GI bleed: (2) Hyperkalemia: (3) Anemia:of chronic disease due to the end-stage renal disease w ABLA (4) Below-knee amputation of left lower extremity with complication: (5) Diabetes mellitus with multiple complications: (6) ESRD (7) Wound of foot: (8) CHF (congestive heart failure): (9) Hypertension (10) acute urinary retention (11) BPH Hold aspirin given 1 unit of packed red blood cells H&H every 6 hours. Occult blood +. GI consult has already been placed. No anticoagulation due to GI bleed. ongoing diarrhea stool cultures were obtained. consult wound care x GELACIO drain and device in the left [id number] amputation and a dressing to the right foot. Accu-Cheks every 6 hours. cont amlodipine and Coreg. 12/24/20 Wound care Voiding symptoms continue Flomax HCTZ t.i.d. for anxiety outpatient chart corrected to hydroxyzine Monitor for ongoing GI bleeding Anticipate scope on Saturday Continue current care nephro and gastro following 12/25/20 Patient reports ongoing irritative voiding symptoms. UA w reflex and post
[2020-12-26] MEDS: CHOLESTYRAMINE LIGHT 4 GM POWD.PACK PO (13:41)
--- NOTE | 2020-12-26 14:22 | PCOTNOTE ---
OT evaluation attempted. Patient declining participation this date due to lethargy, pain, and feeling very unwell. Patient educated on benefits of therapy and encouraged to participate, however, continued to refuse. Will attempt OT evaluation at later time.
--- NOTE | 2020-12-26 15:17 | PCNSR ---
On 12/26/20, the student,Quyen Torres, provided care and completed [facility] documentation on this patient. I have reviewed the student's documentation and agree with the findings.
--- NOTE | 2020-12-26 16:21 | PM.PNNEP ---
Progress Note: A&P Assessment and Plan (1) ESRD (end stage renal disease): Code(s): N18.6 - End stage renal disease Status: Acute Assessment and Plan: HD tomorrow and continue T/T/S schedule follow electrolytes, volume status, and clearance (2) Anemia: Code(s): D64.9 - Anemia, unspecified Status: Acute Assessment and Plan: remains low but relatively stable s/p PRBC transfusion since admission presumed to be from GI loss but s/p EGD/colonoscopy with no significant findings noted high dose Epogen with HD follow trend of H/H (3) Hypertension: Code(s): I10 - Essential (primary) hypertension Status: Acute Assessment and Plan: reasonable control follow hemodynamics (4) CHF (congestive heart failure): Code(s): I50.9 - Heart failure, unspecified Status: Acute Assessment and Plan: appears compensated follow volume status closely (5) Diabetes mellitus with hyperglycemia: Qualifiers: Diabetes mellitus remote computer terminal operator insulin use: with remote computer terminal operator use Diabetes mellitus type: type 2 Qualified Code(s): E11.65 - Type 2 diabetes mellitus with hyperglycemia; Z79.4 - equipment operator intermodal yard (current) use of insulin Code(s): E11.65 - Type 2 diabetes mellitus with hyperglycemia Status: Chronic Assessment and Plan: followAccu-Cheks on sliding-scale insulin Will continue to follow. Subjective Date/time seen: 12/26/20 16:21 S/P EGD and colonoscopy today with results noted; no apparent distress voiced at the time of my visit; nursing informed me of blood urine which is a new finding; no other events/issues overnight or earlier this AM. Exam Narrative: Exam Narrative: General: WD/WN male in NAD Heart: normal S1 and S2; no rub Lungs: clear to auscultation Abdomen: soft, nontender, nondistended, positive bowel sounds Extremities: no cyanosis or clubbing; no edema Skin: warm and dry Objective Data Vital Signs Vital Signs: Vital Signs Temp Pulse Resp BP Pulse Ox 12/26/20 16:00 77 12/26/20 14:00 36.4 C 73 18 104/43 L 100 12/26/20 12:00 77 12/26/20 10:26 75 12/26/20 10:19 20 100 12/26/20 09:53 73 20 108/53 L 100 12/26/20 09:43 74 23 H 98/49 L 98 12/26/20 09:33 75 18 88/49 L 97 12/26/20 08:13 36.4 C L 78 18 110/61 100 12/26/20 07:40 20 98 12/26/20 06:00 36.6 C 75 20 113/52 L 98 12/26/20 04:00 77 12/26/20 00:00 70 12/25/20 22:00 36.1 C L 72 21 H 110/50 L 100 12/25/20 20:00 74 Intake/Output Intake/Output: Intake & Output 12/23/20 12/24/20 12/25/20 12/26/20 23:59 23:59 23:59 23:59 Intake Total 3165 524 1278 410 Output Total 3170 1832 1250 Balance 1350 -2510 -762 -840 Meds/Results Medications: Active Medications Generic Name Dose Route Start Last Admin Trade Name Freq PRN Reason Stop Dose Admin Acetaminophen 1,000 mg 12/24/20 00:39 12/25/20 12:01 Acetaminophen 500 Mg Tablet PO 1,000 mg Q6H PRN Administration Pain (Scale Score 1-3) Aspirin 81 mg 12/27/20 09:00 Aspirin 81 Mg Enteric Tablet PO DAILY [facility] Atorvastatin Calcium 40 mg 12/24/20 09:00 12/26/20 10:27 Atorvastatin 40 Mg Tablet PO 40 mg DAILY [facility] Administration Bisacodyl 10 mg 12/24/20 00:39 Bisacodyl 10 Mg Suppository RECTAL DAILY PRN Constipation Cholestyramine Resin 4 gm 12/26/20 10:05 12/26/20 13:41 Cholestyramine Light 4 Gm Powd.Pack PO 4 gm QAM@1000 [facility]1983 Administration Clopidogrel Bisulfate 75 mg 12/24/20 09:00 12/26/20 10:25 Clopidogrel Bisulfate 75 Mg Tablet PO 75 mg DAILY [facility]1983 Administration Collagenase 1 applic 12/24/20 09:00 12/26/20 10:28 Collagenase Oint 30 Gm Tube TOPICAL 1 applic DAILY [facility] Administration Cyclobenzaprine HCl 5 mg 12/24/20 00:39 Cyclobenzaprine Hcl 5 Mg Tablet PO TID PRN Spasms Dextrose 12.5 gm 12/23/20 23:21 12/24
--- NOTE | 2020-12-26 16:21 | P.PNNP_ITS ---
Progress Note: A&P Assessment and Plan (1) ESRD (end stage renal disease): Code(s): N18.6 - End stage renal disease Status: Acute Assessment and Plan: * HD tomorrow and continue T/T/S schedule * follow electrolytes, volume status, and clearance (2) Anemia: Code(s): D64.9 - Anemia, unspecified Status: Acute Assessment and Plan: * remains low but relatively stable * s/p PRBC transfusion since admission * presumed to be from GI loss but s/p EGD/colonoscopy with no significant findings noted * high dose Epogen with HD * follow trend of H/H (3) Hypertension: Code(s): I10 - Essential (primary) hypertension Status: Acute Assessment and Plan: * reasonable control * follow hemodynamics (4) CHF (congestive heart failure): Code(s): I50.9 - Heart failure, unspecified Status: Acute Assessment and Plan: * appears compensated * follow volume status closely (5) Diabetes mellitus with hyperglycemia: Qualifiers: Diabetes mellitus termite renewal inspector insulin use: with termite renewal inspector use Diabetes mellitus type: type 2 Qualified Code(s): E11.65 - Type 2 diabetes mellitus with hyperglycemia; Z79.4 - intermediate (current) use of insulin Code(s): E11.65 - Type 2 diabetes mellitus with hyperglycemia Status: Chronic Assessment and Plan: * followAccu-Cheks * on sliding-scale insulin Will continue to follow. Subjective Date/time seen: 12/26/20 16:21 S/P EGD and colonoscopy today with results noted; no apparent distress voiced at the time of my visit; nursing informed me of blood urine which is a new finding; no other events/issues overnight or earlier this AM. Exam Narrative: Exam Narrative: General: WD/WN male in NAD Heart: normal S1 and S2; no rub Lungs: clear to auscultation Abdomen: soft, nontender, nondistended, positive bowel sounds Extremities: no cyanosis or clubbing; no edema Skin: warm and dry Objective Data Vital Signs Vital Signs: Vital Signs Temp Pulse Resp BP Pulse Ox 12/26/20 16:00 77 12/26/20 14:00 36.4 C 73 18 104/43 L 100 12/26/20 12:00 77 12/26/20 10:26 75 12/26/20 10:19 20 100 12/26/20 09:53 73 20 108/53 L 100 12/26/20 09:43 74 23 H 98/49 L 98 12/26/20 09:33 75 18 88/49 L 97 12/26/20 08:13 36.4 C L 78 18 110/61 100 12/26/20 07:40 20 98 12/26/20 06:00 36.6 C 75 20 113/52 L 98 12/26/20 04:00 77 12/26/20 00:00 70 12/25/20 22:00 36.1 C L 72 21 H 110/50 L 100 12/25/20 20:00 74 Intake/Output Intake/Output: Intake & Output 12/23/20 12/24/20 12/25/20 12/26/20 23:59 23:59 23:59 23:59 Intake Total 2756 049 5074 410 Output Total 3170 1832 1250 Balance 1350 -2510 -762 -840 Meds/Results Medications: Active Medications Generic Name Dose Route Start Last Admin Trade Name Saulo PRN Reason Stop Dose Admin Acetaminophen 1,000 mg 12/24/20 00:39 12/25/20 12:01 Acetaminophen 500 Mg Tablet PO 1,000 mg Q6H PRN Administration Pain (Scale Score 1-3) Aspirin 81 mg 12/27/20 09:00 Aspirin 81 Mg Enteric Tablet PO DAILY SALVADOR
[2020-12-26 16:40] LABS: Glucose Point of Care 112 (65-105)
[2020-12-26] MEDS: GABAPENTIN 100 MG CAPSULE 200 MG PO (21:11)
[2020-12-26 22:04] LABS: Glucose Point of Care 209 (65-105)
[2020-12-27] VITALS (36 sets, daily range): BP systolic 104–147; BP diastolic 49–71; PULSE 64–84; RESP 10–18; TEMP 36.2–37.1; O2SAT 98–100
--- NOTE | 2020-12-27 02:14 | PC.NURSE ---
Addendum entered by Tho Cowan RN 12/27/20 02:40: Current Hgb 7.2. Bladder scan max 40ml. Urine remains very dark w/ clots present. Will monitor closely and irrigate catheter as needed. Original Note: Called to pt room by LEADERSHIP PROGRAM ASSOCIATE for large amount of dark red urine in mccann bag. Pt previously having scant amounts of dark red urine out in mccann catheter. 1L of dark red urine emptied from mccann bag. Stephanie Mcclain was notified and ordered Q6h H&H and urology consult. Dr Arce consulted and ordered mccann irrigation as needed and NPO status at this time. Mccann was irrigated and there is no change in output, H&H results pending at this time.
[2020-12-27 02:22] LABS: Hematocrit 22.7 % (42.0-52.0); Hemoglobin 7.2 g/dL (14.0-18.0); Mean Corpuscular HGB Conc 31.7 g/dl (32-36); Mean Corpuscular Volume 97.8 fl (80-100); Mean Platelet Volume 9.1 fl (7.4-10.4); Platelet Count Result 325 k/mm3 (150-375); Red Blood Count 2.32 M/mm3 (4.6-6.20); Red Cell Distribution Width 17.2 % (11.5-14.5); White Blood Count 10.8 K/mm3 (4.5-10.0)
[2020-12-27 02:35] LABS: Albumin Level 2.9 g/dL (3.5-5.1); Anion Gap 7 mmol/L (8-16); Blood Urea Nitrogen 42 mg/dL (9-20); Calcium 7.7 mg/dL (8.4-10.2); Carbon Dioxide 31 mmol/L (22-30); Chloride 101 mmol/L (98-107); Estimated CRCL calculation 15 ml/min; Estimated Glomerular Filt Rate 11; Glucose 112 mg/dL (75-110); Phosphorus 6.1 mg/dL (2.5-4.5); Potassium 4.3 mmol/L (3.4-5.0); Sodium 139 mmol/L (137-145)
[2020-12-27] MEDS: ACETAMINOPHEN 500 MG TABLET 1000 MG PO (06:32)
--- NOTE | 2020-12-27 07:34 | WPDURCON ---
Assessment and Plan Assessment and plan (1) Gross hematuria: Code(s): R31.0 - Gross hematuria Status: Acute Assessment and Plan: Plan for cysto with clot evacuation. If has not had upper tract studies will obtain renal ultrasound. Discussed with patient and he is in agreement. She Urology Consult Note HPI Date Seen: 12/27/20 Time Seen: 07:34 Requesting Physician: Lynne Olivas MD Primary Care Provider: Jewels Lamsa, Consult Narrative Reason for consult: Hematuria Narrative: Kobi Salter is a 55 year old male with multiple medical problems including end-stage renal disease is on hemodialysis. Patient was admitted with anemia with a hemoglobin of approximately 7. He has had a GI evaluation without any obvious source. Patient states that he makes small amounts of urine. Patient had a Bliss catheter placed during this admission. It was noted by the nurse that he had about 50 cc of bloody urine early in the day yesterday and then approximately in the evening and up with 1000 cc of blood colored urine. Patient denies any gross hematuria at home. Rest evaluate the patient further. Review of Systems Review of Systems: All systems reviewed & are unremarkable except as noted in HPI and below PMFSH Past Medical History Medical History Acute on chronic blood loss anemia 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 heart failure Last echo 06/06/2020 EF approximately 35-40% and diastolic dysfunction NATAN (acute kidney injury) Anemia Anemia of chronic disease Anxiety and depression Arthritis Below-knee amputation of left lower extremity with complication CAD (coronary artery disease) CABG x4 2017, Lexiscan stress test January 2020 moderate sized mild partially reversible perfusion defect involving inferior wall consistent with mixed ischemia and infarct, large severe partially reversible perfusion defect involving the anterior lateral and inferior lateral wall consistent with mixed ischemia infarct, small mild partially reversible freezing defect involving left ventricular apex and mid anterior segment consistent with mix ischemia and infarct with EF of 29% Cardiac arrhythmia Went into Afib after CABG 2018 Cataract Right cataract pending surgery Diabetes Hemoglobin A1c of 11.03 Jan 2020 Diabetic nephropathy Diabetic neuropathy Diabetic peripheral neuropathy Elevated lipids ESRD (end stage renal disease) History of amputation of toe Left 5th toe 2012 small toe on the right amputated Obstructive sleep apnea Stage 3 chronic kidney disease Surgical History Surgical History Amputation toe Left 5th toe. Now has left tsjry-dse-giun amputation. History of quadruple bypass 2017 at [facility] Hx of cardiac cath History of PCI 2012 5 stents S/P dialysis catheter insertion Right upper chest Status post cataract extraction and insertion of intraocular lens of left eye February 2020 Family History Family History Sibling Patient's sister is Diabetes mellitus Sister Acute myocardial infarction Three brothers and 2 sisters History of blood clots Sister Abdominal aortic aneurysm Sister Dementia Brother COPD (chronic obstructive pulmonary disease) Brother Father Acute myocardial infarction, Onset Age: 65 Mother History of blood clots Hypertension, Onset Age: 80 Social History Social History Social History: The patient is currently in rehab at [facility] otherwise known as [place]. The patient stated that he used to smoke but he quit last year. He is disabled. He has no children. 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 The
[2020-12-27 07:38] LABS: Glucose Point of Care 91 (65-105)
[2020-12-27 08:00] LABS: Hematocrit 24.3 % (42.0-52.0); Hemoglobin 7.5 g/dL (14.0-18.0)
--- NOTE | 2020-12-27 08:19 | PC.NURSE ---
0800 Report called to [facility]EMI preop. 0815 To OR via stretcher.
--- NOTE | 2020-12-27 08:30 | WPDANESEPPF ---
Anes - Initial Pre Proc Eval Procedure: Operation Date: 12/26/20 13:30 Proposed Procedures p Esophagogastroduodenoscopy - Rakan Mary MD s Flexible Sigmoidoscopy - Rakan Mary MD Operation Date: 12/27/20 12:30 Proposed Procedures p Cystoscopy, Evacuation Bladder Clots - Abdiel Arce MD Date/Time: 12/27/20 08:30 Surgeon: Lynne Olivas MD Pre Op Diagnosis: anemia, GI bleed, DM, ESRD Patient Data Age: 55 Gender: M Height: 1.83 m Weight: 55.2 kg Last Vital Signs Temp 36.6 C 12/27/20 08:25 Pulse 77 12/27/20 08:25 Resp 12 12/27/20 08:25 BP 127/60 12/27/20 08:25 Pulse Ox 100 12/27/20 08:25 Allergies Allergy/AdvReac Type Severity Reaction Status Date / Time Penicillins Allergy Unknown Unknown Verified 12/26/20 08:11 bee venom protein (honey bee) Allergy Swelling Verified 12/26/20 08:11 Home Medications Medication Instructions Recorded Confirmed Type Lantus U-100 Insulin 8 unit SUBCUT HS 06/01/20 12/23/20 History acetaminophen 1,000 mg PO Q6H PRN 06/01/20 12/23/20 History aspirin 81 mg PO DAILY 06/01/20 12/23/20 History cholecalciferol (vitamin D3) 50 mcg PO DAILY 06/01/20 12/23/20 History [Vitamin D3] ferrous sulfate 325 mg PO DAILY 06/01/20 12/23/20 History multivitamin 1 tablet PO DAILY 06/01/20 12/23/20 History nitroglycerin 0.4 mg SUBLINGUAL Q5-15M PRN 06/01/20 12/23/20 History omega-3 fatty acids-fish oil 1 cap PO DAILY 06/01/20 12/23/20 History miconazole nitrate [Aloe [place] 1 applic TOPICAL Q12HR #0 g 06/14/20 12/23/20 Rx Antifungal (micon)] alogliptin 25 mg PO DAILY 12/23/20 12/23/20 History atorvastatin [Lipitor] 40 mg PO DAILY 12/23/20 12/23/20 History bisacodyl 10 mg RECTAL DAILY PRN 12/23/20 12/23/20 History clopidogrel [Plavix] 75 mg PO DAILY 12/23/20 12/23/20 History collagenase clostridium histo. 1 applic TOPICAL DAILY 12/23/20 12/23/20 History cyclobenzaprine 5 mg PO TID PRN 12/23/20 12/23/20 History daptomycin 850 mg IV QTUTHSA 12/23/20 12/23/20 History fenofibrate micronized 67 mg PO DAILY 12/23/20 12/23/20 History folic acid 1 mg PO DAILY 12/23/20 12/23/20 History furosemide 80 mg PO BID 12/23/20 12/23/20 History gabapentin 200 mg PO HS 12/23/20 12/23/20 History hydralazine 100 mg PO TID PRN 12/23/20 12/23/20 History isosorbide dinitrate 40 mg PO TID 12/23/20 12/23/20 History magnesium citrate [Citroma] 150 ml PO DAILY PRN 12/23/20 12/23/20 History magnesium hydroxide [Milk of 400 mg PO DAILY PRN 12/23/20 12/23/20 History Magnesia] metoprolol tartrate 12.5 mg PO DAILY 12/23/20 12/23/20 History oxycodone 5 mg PO Q4H PRN 12/23/20 12/23/20 History sevelamer carbonate 1,600 mg PO TID 12/23/20 12/23/20 History sodium phosphates [Fleet Enema] 118 ml RECTAL ONCE 12/23/20 12/23/20 History tamsulosin [Flomax] 0.4 mg PO DAILY 12/23/20 12/23/20 History Laboratory Tests 12/26/20 12/26/20 12/26/20 12:20 16:31 21:27 WBC RBC Hgb Hct MCV MCH MCHC RDW Plt Count MPV Sodium Potassium Chloride Carbon Dioxide Anion Gap BUN Creatinine Estim Creat Clear Calc Estimated GFR Glucose POC Capillary Glucose 106 mg/dl mg/dl 112 mg/dl H mg/dl 209 mg/dl H mg/dl (65-105) (65-105) (65-105) Calcium Phosphorus Albumin 12/27/20 12/27/20 12/27/20 02:14 02:14 07:30 WBC 10.8 K/mm3 H K/mm3 (4.5-10.0) RBC 2.32 M/mm3 L M/mm3 (4.6-6.20) Hgb 7.2 g/dL L g/dL (14.0-18.0) Hct 22.7 % L % (42.0-52.0) MCV 97.8 fl fl (80-100) MCH 31.0 pg pg (26-34) MCHC 31.7 g/dl L g/dl (32-36) RDW 17.2 % H % (11.5-14.5) Plt Count 325 k/mm3 k/mm3 (150-375) MPV 9.1 fl fl
[2020-12-27] MEDS: LACTATED RINGERS 1,000 ML 30 ML IV CONT (08:35)
[2020-12-27] MEDS: SODIUM CHLORIDE 0.9% IV 500 ML 30 ML IV CONT (08:50)
--- NOTE | 2020-12-27 09:18 | WPDHPUPDATE1 ---
History and Physical Update Update Date/Time: 12/27/20 09:18 History and Physical has been reviewed, including an updated exam of the patient. There are NO changes in the patient's condition. Risks, benefits, and alternatives have been discussed and questions answered. Patient agrees to proceed with procedure. Proceed with cysto clot evacuation.
[2020-12-27] MEDS: ceFAZolin 2 GM/D5W 50 ML 2 GM/50 ML BAG IVPB (09:37)
[2020-12-27] MEDS: LIDOCAINE HCL 2% GEL UROJET 10 ML PKG MUCOUS MEM (09:57)
--- NOTE | 2020-12-27 10:12 | PM.PROC ---
Procedure Note - Detailed Date of procedure: 12/27/20 Pre-op diagnosis: anemia, GI bleed, DM, ESRD Post-op diagnosis: same Procedure performed: Urethral dilation to 26 Vietnamese, cystoscopy with clot evacuation, bladder biopsy with fulguration Description of procedure: Patient is taken the operative suite and correctly identified. Once anesthesia was obtained he was placed in dorsal lithotomy position and prepped and draped usual sterile fashion. Twenty-two Vietnamese scope was inserted into the urethra. There were no urethral strictures noted at this time. Prostate nonobstructive. Upon entering the bladder there is clots present. These were evacuated using a Yves syringe. There was a minimal amount present may be 15-20 cc worth. This would not explain his anemia. Reinspection of the bladder reveals no papillary growths but an extreme amount of bladder wall irregularity with congestion along the left anterior bladder. We used a cold cup to biopsy this area. We then wanted to rollerball the area for good hemostasis. A 24 Vietnamese scope would not pass into the meatus. We dilated the meatus up to 26 Vietnamese using male sounds. The resectoscope sheath was then inserted. Using a roller ball we then fulgurated the congested area there was good hemostasis. 2% viscous lidocaine was inserted urethra and a [address] was placed with 15 cc in the balloon. This was connected to continuous bladder irrigation and patient is taken recovery room stable condition. Further recommendations will be made pending his biopsy results [facility] Surgeon: Abdiel Arce MD Estimated blood loss (mL): 0 Drains: Yes Packing: No Pathology: yes Complications: No immediate complications Condition: stable Disposition: PACU Findings: Very small amount of clot present not enough to explain his anemia. Extremely congested vascular left anterior wall the bladder.
[2020-12-27 10:38] LABS: Glucose Point of Care 90 (65-105)
[2020-12-27] MEDS: fentaNYL CITRATE INJ (*CRX) 100 MCG/2 ML VIAL 25 MCG IV PUSH (11:14)
--- NOTE | 2020-12-27 11:15 | SUR.PHASEI ---
O2 removed at 1110.
--- NOTE | 2020-12-27 11:19 | P.PNNP_ITS ---
Progress Note: A&P Assessment and Plan (1) ESRD (end stage renal disease): Code(s): N18.6 - End stage renal disease Status: Acute Assessment and Plan: * HD today and continue T/T/S schedule * follow electrolytes, volume status, and clearance (2) Anemia: Code(s): D64.9 - Anemia, unspecified Status: Acute Assessment and Plan: * remains low but relatively stable * s/p PRBC transfusion since admission * presumed to be from GI loss but s/p EGD/colonoscopy with no significant findings noted * high dose Epogen with HD * follow trend of H/H (3) Hypertension: Code(s): I10 - Essential (primary) hypertension Status: Acute Assessment and Plan: * reasonable control * follow hemodynamics (4) CHF (congestive heart failure): Code(s): I50.9 - Heart failure, unspecified Status: Acute Assessment and Plan: * appears compensated * follow volume status closely (5) Gross hematuria: Code(s): R31.0 - Gross hematuria Status: Acute Assessment and Plan: * Urology following * s/p cystoscopy with clot evacuation, bladder biopsy and urethral dilation * follow UOP (6) Diabetes mellitus with hyperglycemia: Qualifiers: Diabetes mellitus nursing home insulin use: with termite control servicer use Diabetes mellitus type: type 2 Qualified Code(s): E11.65 - Type 2 diabetes mellitus with hyperglycemia; Z79.4 - senior living (current) use of insulin Code(s): E11.65 - Type 2 diabetes mellitus with hyperglycemia Status: Chronic Assessment and Plan: * followAccu-Cheks * on sliding-scale insulin Will continue to follow. Subjective Date/time seen: 12/27/20 11:19 More hematuria overnight and seen by Urology this AM -- subsequent cystoscopy done as well with findings noted; otherwise, feels reasonably well at the time of visit; due for dialysis this afternoon. Exam Narrative: Exam Narrative: General: WD/WN male in NAD Heart: normal S1 and S2; no rub Lungs: clear to auscultation Abdomen: soft, nontender, nondistended, positive bowel sounds Extremities: no cyanosis or clubbing; no edema Skin: warm and intact Objective Data Vital Signs Vital Signs: Vital Signs Temp Pulse Resp BP Pulse Ox 12/27/20 11:15 68 13 137/66 100 12/27/20 11:00 69 10 L 140/71 100 12/27/20 10:45 67 13 140/70 100 12/27/20 10:30 68 15 138/67 100 12/27/20 10:16 36.2 C L 77 15 104/53 L 100 12/27/20 08:25 36.6 C 77 12 127/60 100 12/27/20 08:10 14 98 12/27/20 08:00 74 12/27/20 06:00 36.6 C 75 16 136/62 100 12/27/20 04:00 79 12/27/20 01:13 82 16 127/59 L 100 12/27/20 00:00 81 12/26/20 22:00 36.8 C 86 18 120/58 L 94 12/26/20 20:00 83 12/26/20 16:00 77 12/26/20 14:00 36.4 C 73 18 104/43 L 100 12/26/20 12:00 77 Intake/Output Intake/Output: Intake & Output 12/24/20 12/25/20 12/26/20 12/27/20 23:59 23:59 23:59 23:59 Intake Total 660 1070 650 160 Output Total 8730 8772 3076 2629 [facility] -[phone] Meds/Results Medications: Active Medications Generic Name Dose Route Start Last Admin
--- NOTE | 2020-12-27 11:19 | PM.PNNEP ---
Progress Note: A&P Assessment and Plan (1) ESRD (end stage renal disease): Code(s): N18.6 - End stage renal disease Status: Acute Assessment and Plan: HD today and continue T/T/S schedule follow electrolytes, volume status, and clearance (2) Anemia: Code(s): D64.9 - Anemia, unspecified Status: Acute Assessment and Plan: remains low but relatively stable s/p PRBC transfusion since admission presumed to be from GI loss but s/p EGD/colonoscopy with no significant findings noted high dose Epogen with HD follow trend of H/H (3) Hypertension: Code(s): I10 - Essential (primary) hypertension Status: Acute Assessment and Plan: reasonable control follow hemodynamics (4) CHF (congestive heart failure): Code(s): I50.9 - Heart failure, unspecified Status: Acute Assessment and Plan: appears compensated follow volume status closely (5) Gross hematuria: Code(s): R31.0 - Gross hematuria Status: Acute Assessment and Plan: Urology following s/p cystoscopy with clot evacuation, bladder biopsy and urethral dilation follow UOP (6) Diabetes mellitus with hyperglycemia: Qualifiers: Diabetes mellitus residential insulin use: with residential use Diabetes mellitus type: type 2 Qualified Code(s): E11.65 - Type 2 diabetes mellitus with hyperglycemia; Z79.4 - lobsterman (current) use of insulin Code(s): E11.65 - Type 2 diabetes mellitus with hyperglycemia Status: Chronic Assessment and Plan: followAccu-Cheks on sliding-scale insulin Will continue to follow. Subjective Date/time seen: 12/27/20 11:19 More hematuria overnight and seen by Urology this AM -- subsequent cystoscopy done as well with findings noted; otherwise, feels reasonably well at the time of visit; due for dialysis this afternoon. Exam Narrative: Exam Narrative: General: WD/WN male in NAD Heart: normal S1 and S2; no rub Lungs: clear to auscultation Abdomen: soft, nontender, nondistended, positive bowel sounds Extremities: no cyanosis or clubbing; no edema Skin: warm and intact Objective Data Vital Signs Vital Signs: Vital Signs Temp Pulse Resp BP Pulse Ox 12/27/20 11:15 68 13 137/66 100 12/27/20 11:00 69 10 L 140/71 100 12/27/20 10:45 67 13 140/70 100 12/27/20 10:30 68 15 138/67 100 12/27/20 10:16 36.2 C L 77 15 104/53 L 100 12/27/20 08:25 36.6 C 77 12 127/60 100 12/27/20 08:10 14 98 12/27/20 08:00 74 12/27/20 06:00 36.6 C 75 16 136/62 100 12/27/20 04:00 79 12/27/20 01:13 82 16 127/59 L 100 12/27/20 00:00 81 12/26/20 22:00 36.8 C 86 18 120/58 L 94 12/26/20 20:00 83 12/26/20 16:00 77 12/26/20 14:00 36.4 C 73 18 104/43 L 100 12/26/20 12:00 77 Intake/Output Intake/Output: Intake & Output 12/24/20 12/25/20 12/26/20 12/27/20 23:59 23:59 23:59 23:59 Intake Total 660 1070 650 160 Output Total 3170 1832 1300 4800 [facility] -[phone] Meds/Results Medications: Active Medications Generic Name Dose Route Start Last Admin Trade Name Saulo PRN Reason Stop Dose Admin Acetaminophen 1,000 mg 12/24/20 00:39 12/27/20 06:32 Acetaminophen 500 Mg Tablet PO 1,000 mg Q6H PRN Administration Pain (Scale Score 1-3) Aspirin 81 mg 12/27/20 09:00 Aspirin 81 Mg Enteric Tablet PO DAILY [facility] Atorvastatin Calcium 40 mg 12/24/20 09:00 12/26/20 10:27 Atorvastatin 40 Mg Tablet PO 40 mg DAILY [facility] Administration Bisacodyl 10 mg 12/24/20 00:39 Bisacodyl 10 Mg Suppository RECTAL DAILY PRN Constipation Cholestyramine Resin 4 gm 12/26/20 10:05 12/26/20 13:41 Cholestyramine Light 4 Gm Powd.Pack PO 4 gm QAM@1000 [facility] Administration Clopidogrel Bisulfate 75 mg 12/24/20 09:00 12/26/20 10:25 Clopidogrel Bisulfate 75 Mg Tablet PO 75 mg DAILY [facility]
[2020-12-27] MEDS: OMEGA 3 POLYUNSAT FATTY ACIDS 1 GM CAP PO (12:11)
[2020-12-27] MEDS: ISOSORBIDE DINITRATE 20 MG TABLET 40 MG PO ×2 (12:11→19:55)
[2020-12-27] MEDS: SEVELAMER CARBONATE 800 MG TABLET 1600 MG PO ×2 (12:12→19:55)
[2020-12-27] MEDS: CHOLECALCIFEROL 1,000 UNITS TABLET 2000 UNITS PO (12:12)
[2020-12-27 12:13] LABS: Glucose Point of Care 85 (65-105)
[2020-12-27] MEDS: MULTIVITAMINS THERAPEUTIC TAB (*BKC) 1 TABLET PO (12:13)
[2020-12-27] MEDS: FOLIC ACID 1 MG TABLET PO (12:14)
[2020-12-27] MEDS: ASPIRIN 81 MG ENTERIC TABLET PO (12:14)
[2020-12-27] MEDS: METOPROLOL TARTRATE 12.5 MG TABLET PO (12:14)
[2020-12-27] MEDS: TAMSULOSIN HCL 0.4 MG CAPSULE PO ×2 (12:15→19:55)
[2020-12-27] MEDS: CLOPIDOGREL BISULFATE 75 MG TABLET PO (12:15)
[2020-12-27] MEDS: ATORVASTATIN 40 MG TABLET PO (12:16)
[2020-12-27] MEDS: FUROSEMIDE 80 MG TABLET PO ×2 (12:16→19:55)
[2020-12-27] MEDS: COLLAGENASE OINT 30 GM TUBE 1 APPLIC TOPICAL (12:16)
[2020-12-27] MEDS: FENOFIBRATE,MICRONIZED 48 MG TABLET PO (12:16)
--- NOTE | 2020-12-27 13:17 | PM.IMPN ---
Progress Note: A&P Assessment and Plan (1) GI bleed: Qualifiers: GI bleed type/associated pathology: melena Qualified Code(s): K92.1 - Melena Code(s): K92.2 - Gastrointestinal hemorrhage, unspecified Status: Acute Assessment and Plan: Hold aspirin to his end-stage renal disease. However the patient is lower than normal. He was given 1 unit of packed red blood cells. The patient was complaining having some weakness but no shortness of breath. Will recheck H&H every 6 hours. Occult blood. GI consult has already been placed. No anticoagulation due to GI bleed. (2) Hyperkalemia: Code(s): E87.5 - Hyperkalemia Status: Acute Assessment and Plan: The patient had been complaining of some diarrhea and some stool cultures were obtained. However the patient's potassium is still high. He is end-stage renal disease and is due to have dialysis tomorrow. I did consult hand clipper. However if patient's potassium continues to be elevated I will need to give him a treatment to lower his potassium. (3) Anemia: Code(s): D64.9 - Anemia, unspecified Status: Acute Assessment and Plan: Anemia of chronic disease due to the end-stage renal disease. However the patient is below his baseline in his stool for occult blood was positive. (4) Below-knee amputation of left lower extremity with complication: Code(s): S88.112A - Complete traumatic amputation at level between knee and ankle, left lower leg, initial encounter Status: Inactive Assessment and Plan: I did consult wound care due to GELACIO drain and device in the left ldnur-fzl-xhju amputation and a dressing to the right foot. (5) Diabetes mellitus with multiple complications: Code(s): E11.8 - Type 2 diabetes mellitus with unspecified complications Status: Acute Assessment and Plan: Accu-Cheks every 6 hours. With hypoglycemic protocol. Check A1c. The patient tells me that he has been diabetic for about 10 years. He stated that they had gotten out of control. He stated he was over 800 lb at 1 time. (6) Wound of foot: Code(s): S91.309A - Unspecified open wound, unspecified foot, initial encounter Status: Acute Assessment and Plan: Patient has a dressing to the right foot he had a right 5th toe removed in the past. (7) Hypertension: Code(s): I10 - Essential (primary) hypertension Status: Acute Assessment and Plan: We are still reviewing his blood pressure medication looks like he had been on amlodipine and Coreg. The patient stated he had gone and atrial fibrillation after his CABG but is now in sinus rhythm. (8) CHF (congestive heart failure): Code(s): I50.9 - Heart failure, unspecified Status: Acute Assessment and Plan: Last echo was June of last year. Continue with patient's Coreg Additional Plan (1) GI bleed: (2) Hyperkalemia: (3) Anemia:of chronic disease due to the end-stage renal disease w ABLA (4) Below-knee amputation of left lower extremity with complication: (5) Diabetes mellitus with multiple complications: (6) ESRD (7) Wound of foot: (8) CHF (congestive heart failure): (9) Hypertension (10) acute urinary retention (11) BPH Hold aspirin given 1 unit of packed red blood cells H&H every 6 hours. Occult blood +. GI consult has already been placed. No anticoagulation due to GI bleed. ongoing diarrhea stool cultures were obtained. consult wound care x GELACIO drain and device in the left tkhvl-ebb-ezdy amputation and a dressing to the right foot. Accu-Cheks every 6 hours. cont amlodipine and Coreg. 12/24/20 Wound care Voiding symptoms continue Flomax HCTZ t.i.d. for anxiety outpatient chart corrected to hydroxyzine Monitor for ongoing GI bleeding Anticipate scope on Saturday Continue current care nephro and gastro following 12/25/20 Patient reports ongoing irritative voiding symptoms. UA w reflex and post
[2020-12-27 13:24] LABS: Hematocrit 23.1 % (42.0-52.0); Hemoglobin 7.2 g/dL (14.0-18.0)
[2020-12-27] MEDS: CHOLESTYRAMINE LIGHT 4 GM POWD.PACK PO (13:29)
--- NOTE | 2020-12-27 14:18 | PCOTNOTE ---
OT evaluation attempted. Patient declined all participation due to reports of procedure this morning and states he is having dialysis soon. Patient educated in importance of therapy participation, will continue to attempt.
--- NOTE | 2020-12-27 15:07 | PC.NURSE ---
Report called to hard candy batch mixer.
--- NOTE | 2020-12-27 15:15 | PC.NURSE ---
To Dialysis via bed.
--- NOTE | 2020-12-27 19:48 | PC.NURSE ---
Patient back from dialysis 19:45.
[2020-12-27 19:57] LABS: Glucose Point of Care 122 (65-105)
[2020-12-27] MEDS: GABAPENTIN 100 MG CAPSULE 200 MG PO (19:59)
[2020-12-27 20:05] LABS: Hematocrit 23.5 % (42.0-52.0); Hemoglobin 7.3 g/dL (14.0-18.0)
[2020-12-27 20:08] LABS: Glucose Point of Care 143 (65-105)
[2020-12-28] VITALS (10 sets, daily range): BP systolic 108–129; BP diastolic 45–53; PULSE 63–90; RESP 18; TEMP 36.9–37; O2SAT 100
[2020-12-28 05:47] LABS: Hematocrit 23.7 % (42.0-52.0); Hemoglobin 7.5 g/dL (14.0-18.0); Mean Corpuscular HGB Conc 31.6 g/dl (32-36); Mean Corpuscular Hemoglobin 31.8 pg (26-34); Mean Corpuscular Volume 100.4 fl (80-100); Mean Platelet Volume 9.6 fl (7.4-10.4); Platelet Count Result 328 k/mm3 (150-375); Red Blood Count 2.36 M/mm3 (4.6-6.20); Red Cell Distribution Width 16.6 % (11.5-14.5); White Blood Count 10.1 K/mm3 (4.5-10.0)
[2020-12-28 06:01] LABS: Albumin Level 2.8 g/dL (3.5-5.1); Anion Gap 4 mmol/L (8-16); Blood Urea Nitrogen 19 mg/dL (9-20); Calcium 8.2 mg/dL (8.4-10.2); Carbon Dioxide 29 mmol/L (22-30); Chloride 107 mmol/L (98-107); Estimated CRCL calculation 18 ml/min; Estimated Glomerular Filt Rate 19; Glucose 112 mg/dL (75-110); Phosphorus 3.5 mg/dL (2.5-4.5); Potassium 4.1 mmol/L (3.4-5.0); Sodium 140 mmol/L (137-145)
[2020-12-28 07:54] LABS: Glucose Point of Care 125 (65-105)
--- NOTE | 2020-12-28 09:22 | WPDANESPN ---
Anes - Prog Note Post-Op Date/Time: 12/28/20 09:22 Cardiovascular status: normal Respiratory status: normal Airway patency: baseline Mental status: baseline Post-Op hydration status: normal Vital Signs: Last Vital Signs Temp 36.9 C 12/28/20 06:00 Pulse 82 12/28/20 06:00 Resp 18 12/28/20 06:00 BP 129/53 L 12/28/20 06:00 Pulse Ox 100 12/28/20 06:00 Pain Score (VAS): 0 I/O: Intake & Output 12/27/20 12/28/20 12/28/20 23:59 07:59 15:59 Intake Total 120 360 Output Total 1200 555 Balance -1982 -123 360 Laboratory Tests 12/28/20 05:24 12/28/20 05:24 12/27/20 12/27/20 12/27/20 10:34 11:59 13:16 WBC RBC Hgb 7.2 L Hct 23.1 L MCV MCH MCHC RDW Plt Count MPV Sodium Potassium Chloride Carbon Dioxide Anion Gap BUN Creatinine Estim Creat Clear Calc Estimated GFR Glucose POC Capillary Glucose 90 85 Calcium Phosphorus Albumin 12/27/20 12/27/20 12/27/20 19:48 19:50 20:03 WBC RBC Hgb 7.3 L Hct 23.5 L MCV MCH MCHC RDW Plt Count MPV Sodium Potassium Chloride Carbon Dioxide Anion Gap BUN Creatinine Estim Creat Clear Calc Estimated GFR Glucose POC Capillary Glucose 122 H 143 H Calcium Phosphorus Albumin 12/28/20 12/28/20 12/28/20 05:24 05:24 07:50 WBC 10.1 H RBC 2.36 L Hgb 7.5 L Hct 23.7 L MCV 100.4 H MCH 31.8 MCHC 31.6 L RDW 16.6 H Plt Count 328 MPV 9.6 Sodium 140 Potassium 4.1 Chloride 107 Carbon Dioxide 29 Anion Gap 4 L BUN 19 D Creatinine 3.30 H Estim Creat Clear Calc 18 Estimated GFR 19 L Glucose 112 H POC Capillary Glucose 125 H Calcium 8.2 L Phosphorus 3.5 Albumin 2.8 L Post-procedural complaints: none Patient Feedback: Patient satisfied with anesthetic care.
[2020-12-28] MEDS: ACETAMINOPHEN 500 MG TABLET 1000 MG PO (09:46)
[2020-12-28] MEDS: FENOFIBRATE,MICRONIZED 48 MG TABLET PO (09:47)
[2020-12-28] MEDS: SEVELAMER CARBONATE 800 MG TABLET 1600 MG PO ×3 (09:47→17:42)
[2020-12-28] MEDS: ATORVASTATIN 40 MG TABLET PO (09:47)
[2020-12-28] MEDS: METOPROLOL TARTRATE 12.5 MG TABLET PO (09:47)
[2020-12-28] MEDS: FOLIC ACID 1 MG TABLET PO (09:47)
[2020-12-28] MEDS: ASPIRIN 81 MG ENTERIC TABLET PO (09:47)
[2020-12-28] MEDS: CLOPIDOGREL BISULFATE 75 MG TABLET PO (09:47)
[2020-12-28] MEDS: ISOSORBIDE DINITRATE 20 MG TABLET 40 MG PO ×3 (09:47→17:42)
[2020-12-28] MEDS: CHOLESTYRAMINE LIGHT 4 GM POWD.PACK PO (09:48)
[2020-12-28] MEDS: FUROSEMIDE 80 MG TABLET PO ×2 (09:48→17:42)
[2020-12-28] MEDS: TAMSULOSIN HCL 0.4 MG CAPSULE PO ×2 (09:48→17:43)
[2020-12-28] MEDS: COLLAGENASE OINT 30 GM TUBE 1 APPLIC TOPICAL (09:49)
[2020-12-28 11:40] LABS: Glucose Point of Care 193 (65-105)
[2020-12-28] MEDS: MULTIVITAMINS THERAPEUTIC TAB (*BKC) 1 TABLET PO (12:10)
[2020-12-28] MEDS: CHOLECALCIFEROL 1,000 UNITS TABLET 2000 UNITS PO (12:10)
[2020-12-28] MEDS: OMEGA 3 POLYUNSAT FATTY ACIDS 1 GM CAP PO (12:10)
--- NOTE | 2020-12-28 12:11 | PM.PNNEP ---
Progress Note: A&P Assessment and Plan (1) ESRD (end stage renal disease): Code(s): N18.6 - End stage renal disease Status: Acute Assessment and Plan: HD tomorrow and continue T/T/S schedule follow electrolytes, volume status, and clearance (2) Anemia: Code(s): D64.9 - Anemia, unspecified Status: Acute Assessment and Plan: remains low but relatively stable s/p PRBC transfusion since admission presumed to be from GI loss but s/p EGD/colonoscopy with no significant findings noted high dose Epogen with HD follow trend of H/H (3) Hypertension: Code(s): I10 - Essential (primary) hypertension Status: Acute Assessment and Plan: reasonable control follow hemodynamics (4) CHF (congestive heart failure): Code(s): I50.9 - Heart failure, unspecified Status: Acute Assessment and Plan: appears compensated follow volume status closely (5) Gross hematuria: Code(s): R31.0 - Gross hematuria Status: Acute Assessment and Plan: Urology following s/p cystoscopy with clot evacuation, bladder biopsy and urethral dilation follow UOP (6) Diabetes mellitus with hyperglycemia: Qualifiers: Diabetes mellitus intermediate insulin use: 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 Subjective Date/time seen: 12/28/20 12:11 Tolerated cystoscopy and hemodialysis treatment yesterday without any issues or problems; otherwise, he appears in no apparent distress; no issues or problems overnight or earlier this AM; H/H stable as well. Exam Narrative: Exam Narrative: General: WD/WN male in NAD Heart: normal S1 and S2; no rub Lungs: clear to auscultation Abdomen: soft, nontender, nondistended, positive bowel sounds Extremities: no cyanosis or clubbing; no edema Skin: no rash or nodules Objective Data Vital Signs Vital Signs: Vital Signs Temp Pulse Pulse Resp BP BP Pulse Ox 12/28/20 09:47 88 12/28/20 09:26 37.0 C 82 18 108/45 L 100 12/28/20 08:00 90 12/28/20 06:00 36.9 C 82 18 129/53 L 100 12/28/20 04:00 81 12/28/20 00:00 84 12/27/20 21:16 99 12/27/20 21:13 37.0 C 84 18 131/49 L 100 12/27/20 20:00 79 12/27/20 19:20 36.9 C 72 18 135/58 L 12/27/20 19:00 72 143/61 H 12/27/20 18:40 71 140/68 12/27/20 18:20 69 133/63 12/27/20 18:00 67 147/68 H 12/27/20 17:40 67 135/65 12/27/20 17:20 67 135/65 12/27/20 17:00 65 121/55 L 12/27/20 16:40 66 119/58 L 12/27/20 16:20 66 128/61 12/27/20 16:00 66 123/62 12/27/20 15:38 64 134/65 12/27/20 15:32 37.1 C 64 18 125/60 12/27/20 15:20 37.1 C 64 18 125/60 12/27/20 13:45 36.7 C 66 16 104/49 L 100 12/27/20 12:45 36.4 C L 68 16 109/49 L 100 12/27/20 12:15 36.6 C 68 16 130/55 L 99 12/27/20 12:14 68 Intake/Output Intake/Output: Intake & Output 12/25/20 12/26/20 12/27/20 12/28/20 23:59 23:59 23:59 23:59 Intake Total 1070 650 670 360 Output Total 1832 1300 7200 555 Balance -762 -650 -6530 -195 Meds/Results Medications: Active Medications Generic Name Dose Route Start Last Admin Trade Name Freq PRN Reason Stop Dose Admin Acetaminophen 1,000 mg 12/24/20 00:39 12/28/20 09:46 Acetaminophen 500 Mg Tablet PO 1,000 mg Q6H PRN Administration Pain (Scale Score 1-3) Aspirin 81 mg 12/27/20 09:00 12/28/20 09:47 Aspirin 81 Mg Enteric Tablet PO 81 mg DAILY SALVADOR Administration Atorvastatin Calcium 40 mg 12/24/20 09:00 12/28/20 09:47
--- NOTE | 2020-12-28 12:17 | WPDUROPN2 ---
Progress Note: A&P Assessment and Plan (1) Gross hematuria: Code(s): R31.0 - Gross hematuria Status: Acute Assessment and Plan: Resolved, ok to remove mccann prior to discharge for a voiding trial. No further evaluation needed. Subjective Subjective Date/Time Seen: 12/28/20 12:17 POD #1 Urethral dilation to 26 [place], cystoscopy with clot evacuation, bladder biopsy with fulguration Patient doing well, CBI was on a slow drip, it was stopped during our visit this morning to assess for re-current blood. Review of Systems Cardiovascular: Cardiovascular: Denies chest pain Respiratory: Respiratory: Reports no additional respiratory complaints Gastrointestinal: Gastrointestinal: Denies abdominal pain, Denies nausea and Denies vomiting Genitourinary: Genitourinary: Denies hematuria and Denies flank pain Exam Resp: Effort & Inspection: normal respiratory effort Cardio: Rate: regular rate GI: GI Palp: Yes Soft to palpation and No Tenderness to palpation present (GI) : General: Yes no CVA tenderness Urinary Catheter: Urinary Catheter: patent and draining and urine clear Extrem: Right upper extremity: no edema (right, left leg BKA) Objective Data Vital Signs Vital Signs: Vital Signs - 24 hr 12/27/20 12:45 12/27/20 13:45 12/27/20 15:20 Temperature 97.5 F L 98.0 F 98.8 F Pulse Rate 68 66 64 Pulse Rate [Left] Respiratory Rate 16 16 18 Blood Pressure 109/49 L 104/49 L 125/60 Blood Pressure [Left Arm] Pulse Oximetry 100 100 12/27/20 15:32 12/27/20 15:38 12/27/20 16:00 Temperature 98.8 F Pulse Rate 64 66 Pulse Rate [Left] 64 Respiratory Rate 18 Blood Pressure 134/65 123/62 Blood Pressure [Left Arm] 125/60 Pulse Oximetry 12/27/20 16:20 12/27/20 16:40 12/27/20 17:00 Temperature Pulse Rate 66 66 65 Pulse Rate [Left] Respiratory Rate Blood Pressure 128/61 119/58 L 121/55 L Blood Pressure [Left Arm] Pulse Oximetry 12/27/20 17:20 12/27/20 17:40 12/27/20 18:00 Temperature Pulse Rate 67 67 67 Pulse Rate [Left] Respiratory Rate Blood Pressure 135/65 135/65 147/68 H Blood Pressure [Left Arm] Pulse Oximetry 12/27/20 18:20 12/27/20 18:40 12/27/20 19:00 Temperature Pulse Rate 69 71 72 Pulse Rate [Left] Respiratory Rate Blood Pressure 133/63 140/68 143/61 H Blood Pressure [Left Arm] Pulse Oximetry 12/27/20 19:20 12/27/20 20:00 12/27/20 21:13 Temperature 98.4 F 98.6 F Pulse Rate 79 84 Pulse Rate [Left] 72 Respiratory Rate 18 18 Blood Pressure 131/49 L Blood Pressure [Left Arm] 135/58 L Pulse Oximetry 100 12/27/20 21:16 12/28/20 00:00 12/28/20 04:00 Temperature Pulse Rate 84 81 Pulse Rate [Left] Respiratory Rate Blood Pressure Blood Pressure [Left Arm] Pulse Oximetry 99 12/28/20 06:00 12/28/20 08:00 12/28/20 09:26 Temperature 98.5 F 98.6 F Pulse Rate 82 90 82 Pulse Rate [Left] Respiratory Rate 18 18 Blood Pressure 129/53 L 108/45 L Blood Pressure [Left Arm] Pulse Oximetry 100 100 12/28/20 09:47 Temperature Pulse Rate 88 Pulse Rate [Left] Respiratory Rate Blood Pressure Blood Pressure [Left Arm] Pulse Oximetry Intake/Output Intake/Output: Intake & Output 12/25/20 12/26/20 12/27/20 12/28/20 23:59 23:59 23:59 23:59 Intake Total 1070 650 670 360 Output Total 1832 1300 7200 555 Balance -762 -650 -6530 -195 Meds/Results Medications: Active Medications Generic Name Dose Route Start Last Admin Trade Name Freq PRN Reason Stop Dose Admin Acetaminophen 1,000 mg 12/24/20 00:39 12/28/20 09:46 Acetaminophen 500 Mg Tablet PO 1,000 mg Q6H PRN Administration Pain (Scale Score 1-3) Aspirin 81 mg 12/27/20 09:00 12/28/20 09:47 Aspirin 81 Mg Enteric Tablet PO 81 mg DAILY SALVADOR Administration Atorvastatin Calcium 40 mg 12/24/20 09:00 12/28/20 09:47 Atorvastatin 40 Mg Tablet PO 40 mg DAILY SALVADOR
--- NOTE | 2020-12-28 13:44 | PC.NURSE ---
On 12/28/20, the student, [Petra Lobo ], provided care and completed [facility] documentation on this patient. I have reviewed the student's documentation and agree with the findings.
--- NOTE | 2020-12-28 16:06 | PM.DS ---
DS: Admitting Diagnosis Admitting Diagnosis Admitting Diagnosis: Chief Complaint: Diarrhea DS: Discharge Diagnosis Discharge Diagnosis (1) GI bleed: Qualifiers: GI bleed type/associated pathology: melena Qualified Code(s): K92.1 - Melena Code(s): K92.2 - Gastrointestinal hemorrhage, unspecified Status: Acute Assessment and Plan: Hold aspirin to his end-stage renal disease. However the patient is lower than normal. He was given 1 unit of packed red blood cells. The patient was complaining having some weakness but no shortness of breath. Will recheck H&H every 6 hours. Occult blood. GI consult has already been placed. No anticoagulation due to GI bleed. (2) Hyperkalemia: Code(s): E87.5 - Hyperkalemia Status: Acute Assessment and Plan: The patient had been complaining of some diarrhea and some stool cultures were obtained. However the patient's potassium is still high. He is end-stage renal disease and is due to have dialysis tomorrow. I did consult senior qa engineer. However if patient's potassium continues to be elevated I will need to give him a treatment to lower his potassium. (3) Anemia: Code(s): D64.9 - Anemia, unspecified Status: Acute Assessment and Plan: Anemia of chronic disease due to the end-stage renal disease. However the patient is below his baseline in his stool for occult blood was positive. 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 (5) Diabetes mellitus with multiple complications: Code(s): E11.8 - Type 2 diabetes mellitus with unspecified complications Status: Acute Assessment and Plan: Accu-Cheks every 6 hours. With hypoglycemic protocol. Check A1c. The patient tells me that he has been diabetic for about 10 years. He stated that they had gotten out of control. He stated he was over 800 lb at 1 time. (6) Wound of foot: Code(s): S91.309A - Unspecified open wound, unspecified foot, initial encounter Status: Acute Assessment and Plan: Patient has a dressing to the right foot he had a right 5th toe removed in the past. (7) Hypertension: Code(s): I10 - Essential (primary) hypertension Status: Acute Assessment and Plan: We are still reviewing his blood pressure medication looks like he had been on amlodipine and Coreg. The patient stated he had gone and atrial fibrillation after his CABG but is now in sinus rhythm. (8) CHF (congestive heart failure): Code(s): I50.9 - Heart failure, unspecified Status: Acute Assessment and Plan: Last echo was June of last year. Continue with patient's Coreg DS: Summary Hospital Course Reason for hospitalization: this is a 55-year-old male patient who is in rehab at [facility] recently known as [place]. The patient has a wound to his right heel and has a GELACIO drain to the left [id number] amputation. This is why he is in rehab. The patient has end-stage renal disease and has dialysis on Saturday. The patient stated that the last time that he had any antibiotics was about a month ago for his foot. The patient stated that he has been having diarrhea for months. He did not notice any blood in his stools. He said sometimes he has up to 10 stools a day but other days he only has 2 or 3. He said that the usp was giving him something for the diarrhea. The ER provider did a stool for occult blood and found that it was positive. But his hemoglobin is typically anywhere from 7.5-8.4. The patient stated that it was reported that he has a low hemoglobin and that is why he was sent to the emergenc
[2020-12-28 16:59] LABS: Glucose Point of Care 135 (65-105)
[2020-12-28] MEDS: GABAPENTIN 100 MG CAPSULE 200 MG PO (21:10)
[2020-12-28 22:05] LABS: Glucose Point of Care 190 (65-105)
--- NOTE | 2020-12-28 23:23 | PC.NURSE ---
pt has not voided since mccann removal. Bladder scan shows max of 150ml at this time.
--- NOTE | 2020-12-29 01:51 | PC.NURSE ---
[facility] called and notified pt had not urinated since mccann removal and bladder scan at 2330 shows only 150ml of urine.
== END 2020-12-29 01:30 | DRG 668 ==
LOC: ANHED 18:45 → ANH2MED 22:45
PROVIDERS: Hospitalist; Internal Medicine Gastroenterology; Internal Medicine Nephrology; Nurse Practitioner; Urology; Admitting Provider Family Medicine; Emergency Provider Emergency Medicine; PCP Family Medicine; Visit Provider Family Medicine
PROC: 0DJ08ZZ Inspection of Upper Intestinal Tract, Via Natural or Artificial Opening Endoscopic (ICD-10-PCS; CPT 43235; principal; 2020-12-26 13:30)
PROC: 0DJD8ZZ Inspection of Lower Intestinal Tract, Via Natural or Artificial Opening Endoscopic (ICD-10-PCS; CPT 45330; 2020-12-26 13:30)
PROC: 0TCB8ZZ Extirpation of Matter from Bladder, Via Natural or Artificial Opening Endoscopic (ICD-10-PCS; CPT 52001; principal; 2020-12-27 12:30)
DX: N32.89 Other specified disorders of bladder (principal); N18.6 End stage renal disease; K92.1 Melena; I50.42 Chronic combined systolic (congestive) and diastolic (congestive) heart failure; I13.2 Hypertensive heart and chronic kidney disease with heart failure and with stage 5 chronic kidney disease, or end stage renal disease; D62 Acute posthemorrhagic anemia; I25.810 Atherosclerosis of coronary artery bypass graft(s) without angina pectoris; E87.5 Hyperkalemia; D63.1 Anemia in chronic kidney disease; R31.0 Gross hematuria; R33.9 Retention of urine, unspecified; K31.89 Other diseases of stomach and duodenum; K57.30 Diverticulosis of large intestine without perforation or abscess without bleeding; K64.8 Other hemorrhoids; K52.9 Noninfective gastroenteritis and colitis, unspecified; Z89.512 Acquired absence of left leg below knee; E11.22 Type 2 diabetes mellitus with diabetic chronic kidney disease; Z99.2 Dependence on renal dialysis; E11.51 Type 2 diabetes mellitus with diabetic peripheral angiopathy without gangrene; E11.65 Type 2 diabetes mellitus with hyperglycemia; E11.42 Type 2 diabetes mellitus with diabetic polyneuropathy; E11.36 Type 2 diabetes mellitus with diabetic cataract; H26.9 Unspecified cataract; N40.0 Benign prostatic hyperplasia without lower urinary tract symptoms; D50.9 Iron deficiency anemia, unspecified; G47.33 Obstructive sleep apnea (adult) (pediatric); F41.9 Anxiety disorder, unspecified; F32.9 Major depressive disorder, single episode, unspecified; Z98.42 Cataract extraction status, left eye; Z96.1 Presence of intraocular lens; Z79.82 Long term (current) use of aspirin; Z79.4 Long term (current) use of insulin; Z87.891 Personal history of nicotine dependence; Z88.0 Allergy status to penicillin; Z89.421 Acquired absence of other right toe(s); Z79.02 Long term (current) use of antithrombotics/antiplatelets
CPT/HCPCS: 36415; 36430; 80048; 80053; 80069; 81001; 82728; 82948; 83036; 83540; 83550; 83735; 84100; 85014; 85018; 85025; 85027; 85046; 86706; 86850; 86900; 86901; 86923; 87040; 87086; 87340; 88305; 96360; 99285; A9270; G0257; J0690; J2405; J2704; J3010; J7030; J7040; J7050; J7120; P9016; Q5106

== ENCOUNTER 2021-04-25 14:26 | Emergency (ER) | payer BC, SELFPAY ==
[2021-04-25] VITALS (27 sets, daily range): BP systolic 106–124; BP diastolic 45–69; PULSE 76–90; RESP 13–20; TEMP 36.7–36.9; O2SAT 96–100
--- NOTE | ~2021-04-25 | XR_ITS ---
EXAMINATION: XR chest 1V portable EXAM DATE: 04/25/2021 14:58 INDICATION: Weakness. TECHNIQUE: Portable AP frontal chest x-ray was obtained. Comparison is made to prior examination from 06/15/2020. FINDINGS: Sternotomy wires are present without findings to suggest sternal dehiscence. Right-sided IJ double lumen dialysis catheter. The lungs are clear. There are no pleural effusions. Cardiac silho uette is prominent but magnified on this AP technique. There is no pneumothorax suspected. The bon es and soft tissues are unremarkable. Previously seen airspace disease and pleural effusions have resolved. IMPRESSION: No acute cardiopulmonary findings. Reviewed, dictated and finalized at location A.
[2021-04-25 15:26] LABS: Basophils Percent Auto 0.2 % (0.2-1.2); Eosinophils Absolute Auto 0.1 K/mm3 (0-0.3); Eosinophils Percent Auto 1.2 % (0-4.4); Immature Granulocyte Absolute 0.12 K/mm3 (0.00-0.031); Immature Granulocyte Percent A 1.1 % (0-0.5); Lymphocytes Absolute Auto 0.43 K/mm3 (0.9-3.2); Lymphocytes Percent Auto 4.1 % (18.3-44.2); Mean Corpuscular HGB Conc 30.5 g/dl (32-36); Mean Corpuscular Hemoglobin 29.8 pg (26-34); Mean Corpuscular Volume 97.6 fl (80-100); Monocytes Absolute Auto 0.9 K/mm3 (0.1-0.6); Monocytes Percent Auto 8.7 % (2.6-8.5); Neutrophils Absolute Auto 8.8 K/mm3 (1.3-6.7); Neutrophils Percent Auto 84.7 % (45.5-73.1); Platelet Count Result 288 k/mm3 (150-375); Red Blood Count 1.68 M/mm3 (4.6-6.20); Red Cell Distribution Width 18.1 % (11.5-14.5); White Blood Count 10.5 K/mm3 (4.5-10.0)
[2021-04-25 15:31] LABS: INR 1.7; Partial Thromboplastin Time 40.9 SECONDS (22.3-36.8); Prothrombin Time 19.4 Seconds (11.1-14.7)
[2021-04-25 15:37] LABS: Hematocrit 16.4 % (42.0-52.0)
[2021-04-25 15:43] LABS: Lactic Acid Reflex 1.1 mmol/L (0.7-2.1)
[2021-04-25 16:11] LABS: Alanine Aminotransferase 7 U/L (4-50); Albumin Level 3.2 g/dL (3.5-5.1); Alkaline Phosphatase 77 U/L (38-126); Anion Gap 7 mmol/L (8-16); Aspartate Amino Transferase 16 U/L (17-59); Bilirubin,Total 0.4 mg/dL (0.2-1.3); Blood Urea Nitrogen 41 mg/dL (9-20); CRP 3.2 mg/dL (<1.0); Carbon Dioxide 28 mmol/L (22-30); Chloride 102 mmol/L (98-107); Estimated CRCL calculation 24 ml/min; Estimated Glomerular Filt Rate 18; Glucose 136 mg/dL (65-110); Potassium 4.3 mmol/L (3.4-5.0); Sodium 137 mmol/L (137-145)
--- NOTE | 2021-04-25 16:23 | ED.GENADULT ---
HPI - General Adult General Chief complaint: Recheck/Abnormal Lab/Rx <Sandip Romero PA-C - Last Filed: 04/25/21 20:44> Stated complaint: abn labs <Sandip Romero PA-C - Last Filed: 04/25/21 20:44> Time Seen by Provider: 04/25/21 14:27 <JAZLYN Grijalva Last Filed: 04/25/21 20:44> Source: patient, EMS, RN notes reviewed and old records reviewed <JAZLYN Grijalva Last Filed: 04/25/21 20:44> Mode of arrival: EMS <JAZLYN Grijalva Last Filed: 04/25/21 20:44> Limitations: no limitations <JAZLYN Grijalva Last Filed: 04/25/21 20:44> History of Present Illness HPI narrative: Patient is a 55-year-old male who presents to emergency department for evaluation of hemoglobin of 5 was sent over by his wax cutter patient has history of chronic anemia patient had dialysis today and was then referred to emergency department for evaluation and needing transfusion has had transfusions in the past patient is followed by Dr. Gee Michaels as well patient on arrival has no complaints he is chronically ill-appearing he denies any rectal bleeding or melena and notes that in the past they have been unable to determine the source of anemia but he does have in his records anemia of chronic disease secondary to kidney disease <JAZLYN Grijalva Last Filed: 04/25/21 20:44> Related Data Home medications: Home Medications Medication Instructions Recorded Confirmed Lantus U-100 Insulin 8 unit SUBCUT HS 06/01/20 02/08/21 acetaminophen 1,000 mg PO Q6H PRN 06/01/20 02/08/21 aspirin 81 mg PO DAILY 06/01/20 02/08/21 cholecalciferol (vitamin D3) 50 mcg PO DAILY 06/01/20 02/08/21 [Vitamin D3] ferrous sulfate 325 mg PO DAILY 06/01/20 02/08/21 multivitamin 1 tablet PO DAILY 06/01/20 02/08/21 nitroglycerin 0.4 mg SUBLINGUAL Q5-15M PRN 06/01/20 02/08/21 omega-3 fatty acids-fish oil 1 cap PO DAILY 06/01/20 02/08/21 Fleet Enema 118 ml RECTAL ONCE 12/23/20 02/08/21 alogliptin 25 mg PO DAILY 12/23/20 02/08/21 atorvastatin [Lipitor] 40 mg PO DAILY 12/23/20 02/08/21 bisacodyl 10 mg RECTAL DAILY PRN 12/23/20 02/08/21 clopidogrel [Plavix] 75 mg PO DAILY 12/23/20 02/08/21 collagenase clostridium histo. 1 applic TOPICAL DAILY 12/23/20 02/08/21 cyclobenzaprine 5 mg PO TID PRN 12/23/20 02/08/21 daptomycin 850 mg IV QTUTHSA 12/23/20 02/08/21 fenofibrate micronized 67 mg PO DAILY 12/23/20 02/08/21 folic acid 1 mg PO DAILY 12/23/20 02/08/21 furosemide 80 mg PO BID 12/23/20 02/08/21 gabapentin 200 mg PO HS 12/23/20 02/08/21 hydralazine 100 mg PO TID PRN 12/23/20 02/08/21 isosorbide dinitrate 40 mg PO TID 12/23/20 02/08/21 magnesium citrate [Citroma] 150 ml PO DAILY PRN 12/23/20 02/08/21 magnesium hydroxide [Milk of 400 mg PO DAILY PRN 12/23/20 02/08/21 Magnesia] metoprolol tartrate 12.5 mg PO DAILY 12/23/20 02/08/21 sevelamer carbonate 1,600 mg PO TID 12/23/20 02/08/21 tamsulosin [Flomax] 0.4 mg PO DAILY 12/23/20 02/08/21 <Sandip Romero PA-C - Last Filed: 04/25/21 20:44> Allergies/adverse reactions: Allergies Allergy/AdvReac Type Severity Reaction Status Date / Time Penicillins Allergy Unknown Unknown Verified 02/08/21 13:42 bee venom protein (honey bee) Allergy Swelling Verified 02/08/21 13:42 <Sandip Romero PA-C - Last Filed: 04/25/21 20:44> Review of Systems Review of Systems: All systems reviewed & are unremarkable except as noted in HPI and below <Sandip Romero PA-C - Last Filed: 04/25/21 20:44> [facility] Past Medical History Medical History: Medical History Acute on chronic blood loss anemia 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 heart failure Last echo 06/06/2020 EF approximately 35-40% and diastolic dysfunction NATAN (acute kidney injury) Anemia Anemia of chronic disease Anxiety and depression Arthritis Below-knee amputation of left lower extremity with comp
[2021-04-25] MEDS: SODIUM CHLORIDE 0.9% IV 250 ML 30 ML IV CONT (17:25)
[2021-04-25] MEDS: SODIUM CHLORIDE 0.9% IV 250 ML 30 ML (20:11)
--- NOTE | 2021-04-25 21:01 | PC.NURSE ---
made contact with [facility] to transfer pt to [facility] in [place]. [facility] eta [phone]
--- NOTE | 2021-04-25 23:52 | PC.NURSE ---
[facility] has arrived and crew is aware that pt is going to [facility]
--- NOTE | 2021-04-25 23:57 | PC.NURSE ---
[facility] arrived to transport pt at this time. Report given. Pt A&Ox4 on stretcher upon transport out of ED.
== END 2021-04-25 23:58 ==
PROVIDERS: Emergency Medicine Emergency Medical Services; Emergency Provider General Practice; PCP Family Medicine
DX: D64.9 Anemia, unspecified (principal); I25.10 Atherosclerotic heart disease of native coronary artery without angina pectoris; I13.2 Hypertensive heart and chronic kidney disease with heart failure and with stage 5 chronic kidney disease, or end stage renal disease; E11.22 Type 2 diabetes mellitus with diabetic chronic kidney disease; N18.6 End stage renal disease; I50.43 Acute on chronic combined systolic (congestive) and diastolic (congestive) heart failure; Z79.82 Long term (current) use of aspirin; Z87.891 Personal history of nicotine dependence; Z79.4 Long term (current) use of insulin
CPT/HCPCS: 36415; 36430; 71045; 80053; 83605; 85025; 85610; 85730; 86140; 86850; 86900; 86901; 86920; 96360; 96361; 99285; J7050; P9016

== ENCOUNTER 2023-01-12 20:36 | Inpatient (IN) | payer OTHER, SELFPAY ==
[2023-01-12] VITALS (14 sets, daily range): BP systolic 122–149; BP diastolic 57–82; PULSE 54–72; RESP 16–24; TEMP 36.3; O2SAT 89–99
--- NOTE | ~2023-01-12 | US_ITS ---
EXAMINATION: US abdomen limited DATE: 01/13/2023 15:33 INDICATION: cholecystitis TECHNIQUE: Multiple grayscale and Doppler ultrasound images of limited portions of the abdomen were o btained. COMPARISON: CT abdomen pelvis 01/12/2023. FINDINGS: The visualized portions of the pancreas are normal. The liver is normal with normal echogen icity and echotexture. No surface nodularity. Normal hepatopetal flow in the main portal vein. Mild g allbladder dilation. Gallbladder wall thickening at 5 mm. The common bile duct measures 4 mm. There w as no sonographic Bowser sign. IMPRESSION: Mild gallbladder hydrops. Gallbladder wall thickening. The known gallbladder stone was not visible on the images provided. Otherwise normal limited abdominal ultrasound findings. Reviewed, dictated and finalized at location K. IMPRESSION: Mild gallbladder hydrops. Gallbladder wall thickening. The known gallbladder st one was not visible on the images provided. Otherwise normal limited abdominal ultrasound findings.
--- NOTE | ~2023-01-12 | CT_ITS ---
EXAMINATION: CT abdomen pelvis wo con DATE: 01/12/2023 22:49 INDICATION: Abdominal pain. C. Difficile infection. TECHNIQUE: Computed tomography (CT) of the abdomen and pelvis was performed without intravenous contr ast. The dose-length product was 1523.19 mGy-cm. Automated exposure control and iterative reconstruct ion technique were employed. COMPARISON: None. FINDINGS: Prior lower lobe airspace consolidation which may represent atelectasis or pneumonia. Small pleural effusions. There are calcified granulomas of the spleen there are gallstones with small amou nt of gas in the gallbladder lumen nondependent. There is gallbladder wall thickening. There is bilia ry gas, possibly from previous intervention. There is subtle ill-defined hyperdensity in the spleen w ith calcification, nonspecific. The pancreas, adrenal glands and kidneys are unremarkable. There is e xtensive atherosclerosis. Small amount of free fluid in the pelvis. Nonobstructive bowel pattern. Sma ll fat-containing umbilical hernia. There is soft tissue thickening posterior to the ischial tuberosi ties and greater trochanters, suspicious for cellulitis. There is advanced osteoarthritis of the hips . Severe lumbar spondylosis with grade 1 spondylolisthesis at L5-S1. IMPRESSION: 1. Bilateral lower lobe airspace consolidation which may represent atelectasis or pneumonia. Small pl eural effusions. 2: Cholelithiasis with gallbladder wall thickening and focus of intraluminal gallbladder gas as well as biliary gas. Cannot exclude cholecystitis. 3: Soft tissue thickening posterior to the ischial tuberosities and greater trochanters, suspicious f or cellulitis. Reviewed, dictated and finalized at location A. IMPRESSION: 1. Bilateral lower lobe airspace consolidation which may represent atelectasis or pneumonia. Small pleural effusions. 2: Cholelithiasis with gallbladder wall thickening and focus of intraluminal ga llbladder gas as well as biliary gas. Cannot exclude cholecystitis. 3: Soft tissue thickening posterior to the ischial tuberosities and greater tro chanters, suspicious for cellulitis.
--- NOTE | ~2023-01-12 | XR_ITS ---
XR chest 1V portable 01/12/2023 22:43 Indication: Subjective fever Procedure: AP portable chest Comparison: Comparison to multiple prior studies sequentially, with oldest reviewed study dated 03/13. Findings: Status post median sternotomy for CABG. Cardiomegaly. There is bilateral airspace disease. Small right pleural effusion. No pneumothorax. No acute osseous abnormality. Impression: 1: Bilateral airspace disease may represent edema or pneumonia. 2: Small right pleural effusion. 3: Cardiomegaly. Reviewed, dictated and finalized at location A. Impression: 1: Bilateral airspace disease may represent edema or pneumonia. 2: Small right pleural effusion. 3: Cardiomegaly.
[2023-01-12 20:56] LABS: Basophils Absolute Auto 0.1 K/mm3 (0.0-0.1); Basophils Percent Auto 0.5 % (0.2-1.2); Eosinophils Absolute Auto 0.3 K/mm3 (0-0.3); Eosinophils Percent Auto 2.9 % (0-4.4); Hematocrit 32.7 % (42.0-52.0); Hemoglobin 10.1 g/dL (14.0-18.0); Immature Granulocyte Absolute 0.08 K/mm3 (0.00-0.031); Immature Granulocyte Percent A 0.7 % (0-0.5); Lymphocytes Absolute Auto 0.63 K/mm3 (0.9-3.2); Lymphocytes Percent Auto 5.9 % (18.3-44.2); Mean Corpuscular HGB Conc 30.9 g/dl (32-36); Mean Corpuscular Hemoglobin 32.4 pg (26-34); Mean Corpuscular Volume 104.8 fl (80-100); Mean Platelet Volume 11.1 fl (7.4-10.4); Monocytes Absolute Auto 0.8 K/mm3 (0.1-0.6); Monocytes Percent Auto 7.6 % (2.6-8.5); Neutrophils Absolute Auto 8.8 K/mm3 (1.3-6.7); Neutrophils Percent Auto 82.4 % (45.5-73.1); Platelet Count Result 167 k/mm3 (150-375); Red Blood Count 3.12 M/mm3 (4.6-6.20); Red Cell Distribution Width 16.2 % (11.5-14.5); White Blood Count 10.7 K/mm3 (4.5-10.0)
[2023-01-12 21:06] LABS: Alanine Aminotransferase 29 U/L (6-50); Albumin Level 3.7 g/dL (3.5-5.1); Alkaline Phosphatase 152 U/L (38-126); Anion Gap 12 mmol/L (8-16); Aspartate Amino Transferase 45 U/L (17-59); Bilirubin,Total 0.8 mg/dL (0.2-1.3); Blood Urea Nitrogen 87 mg/dL (9-20); Calcium 8.6 mg/dL (8.4-10.2); Carbon Dioxide 25 mmol/L (22-30); Chloride 103 mmol/L (98-107); Estimated Glomerular Filt Rate 7; Glucose 133 mg/dL (65-110); Lipase 107 U/L (23-300); Potassium 5.6 mmol/L (3.4-5.0); Sodium 140 mmol/L (137-145)
--- NOTE | 2023-01-12 21:45 | ECG_ITS ---
Measurements Intervals [place] Rate: 56 P: [place]: 0 QRS: -6 QRSD: 137 T: 142 QT: 541 QTc: 522 Interpretive Statements SINUS BRADYCARDIA WITH SECOND DEGREE AV BLOCK, TYPE I LEFT BUNDLE BRANCH BLOCK ABNORMAL ECG COMPARED TO ECG 05/18/2020 06:42:53 SINUS BRADYCARDIA NOW PRESENT SECOND DEGREE AV BLOCK, TYPE I NOW PRESENT Electronically Signed On 01-13-2023 8:01:16 CDT by Nasim Gee D.O.
--- NOTE | 2023-01-12 22:07 | ED.NAVMDI ---
HPI - Nausea/Vomiting/Diarrhea General Chief complaint: Nausea/Vomiting/Diarrhea <Noris Cross PA-C - Last Filed: 01/13/23 02:44> Stated complaint: nausea <Noris Cross PA-C - Last Filed: 01/13/23 02:44> Time Seen by Provider: 01/12/23 21:20 <Noris Cross PA-C - Last Filed: 01/13/23 02:44> History of Present Illness HPI Narrative: 57-year-old male with a history of diabetes, CKD on hemodialysis, CHF, s/p bilateral knee amputation, CAD s/p CABG in 2018, and C. difficile reports for evaluation of subjective fever, diaphoresis and right lower quadrant pain that started 4 hours prior to arrival while the patient was laying in bed. States the symptoms lasted approximately 3 hours and have since subsided. He did not take medication for his fever. Reports he came to the ED because he was concerned for his health given his extensive medical history. He is also complaining of loose stools for the past 5 weeks, worsening over the past 2 days. He was hospitalized 7 weeks ago for multiple gallstones , underwent a procedure where they vacuumed out the gallstones , and he was supposed to follow-up to get his gallbladder removed however never did. Patient states 2 weeks later, he developed diarrhea and was diagnosed with C. difficile while in rehab and underwent p.o. treatment, and of medication unknown. States the diarrhea never fully resolved, however the past 2 days has become more watery and foul-smelling. Reports 3-4 episodes of diarrhea in the past 2 days. Patient's last dialysis appointment was 2 days ago. He was scheduled for dialysis today, however did not go due to difficulty getting a ride. States he normally urinates about 2 times every few weeks. Last urination was 3 to 4 days ago. He denies chest pain, shortness of breath, headache or vision changes, focal numbness or weakness, back pain, urinary complaints, hematochezia or melena, vomiting, cough or congestion. He does report nausea that started today. Patient states he is currently being worked up outpatient for sleep apnea. <Noris Cross PA-C - Last Filed: 01/13/23 02:44> Related Data Home medications: Home Medications Medication Instructions Recorded Confirmed aspirin 81 mg tablet,delayed 81 mg PO DAILY 06/01/20 01/13/23 release cholecalciferol (vitamin D3) 50 50 mcg PO DAILY 06/01/20 01/13/23 mcg (2,000 unit) tablet (Vitamin D3) ferrous sulfate 325 mg (65 mg 325 mg PO DAILY 06/01/20 01/13/23 iron) tablet insulin glargine 100 unit/mL 8 unit subcut HS 06/01/20 01/13/23 subcutaneous solution (Lantus U-100 Insulin) multivitamin 1 tablet PO DAILY 06/01/20 01/13/23 nitroglycerin 0.4 mg sublingual 0.4 mg sublingual Q5-15M PRN Chest 06/01/20 01/13/23 tablet Pain omega-3 fatty acids-fish oil 360 1 cap PO DAILY 06/01/20 01/13/23 mg-1,200 mg capsule atorvastatin 40 mg tablet (Lipitor) 40 mg PO DAILY 12/23/20 01/13/23 bisacodyl 10 mg rectal suppository 10 mg RECTAL DAILY PRN Constipation 12/23/20 01/13/23 collagenase clostridium histo. 250 1 applic topical DAILY 12/23/20 01/13/23 unit/gram topical ointment cyclobenzaprine 5 mg tablet 5 mg PO TID PRN Spasms 12/23/20 01/13/23 daptomycin 500 mg intravenous 850 mg IV QTUTHSA 12/23/20 01/13/23 solution folic acid 1 mg tablet 1 mg PO DAILY 12/23/20 01/13/23 gabapentin 100 mg tablet 200 mg PO HS 12/23/20 01/13/23 hydralazine 100 mg tablet 100 mg PO TID PRN Hypertension 12/23/20 01/13/23 magnesium citrate (Citroma oral 150 ml PO DAILY PRN Constipation 12/23/20 01/13/23 solution) magnesium hydroxide 400 mg/5 mL 400 mg PO DAILY PRN Constipation 12/23/20 01/13/23 oral suspension (Milk of Magnesia) metoprolol tartrate 25 mg tablet 12.5 mg PO DAILY 12/23/20 01/13/23 sevelamer carbonate 800 mg tablet 1,600 mg PO TID 12/23/20 01/13/23 tamsulosin 0.4 mg capsule (Flomax) 0.4 mg PO DAILY 12/23/20 01/13/23 fenofibrate nanocrystallized 48 mg 48 mg PO DAILY 01/13/23 01/13/23 ta
[2023-01-12] MEDS: INSULIN HUMAN REGULAR (*BKC) 100 UNITS/ML 10 UNITS IV PUSH (22:20)
[2023-01-12] MEDS: DEXTROSE 50% 25 GM/50 ML SYRINGE IV PUSH (22:20)
[2023-01-12 22:22] LABS: Lactic Acid Reflex 0.8 mmol/L (0.7-2.0)
[2023-01-12] MEDS: ONDANSETRON INJ 4 MG/2 ML VIAL IV PUSH (22:25)
[2023-01-12] MEDS: SODIUM ZIRCONIUM CYCLOSILICATE 10 GM POWD.PACK PO (22:25)
[2023-01-12] MEDS: FIDAXOMICIN 200 MG TABLET PO (22:27)
[2023-01-12] MEDS: CALCIUM GLUCONATE 1,000 MG/10 ML VIAL 2000 MG IV PUSH (22:47)
[2023-01-13] VITALS (25 sets, daily range): BP systolic 127–160; BP diastolic 60–70; PULSE 45–62; RESP 12–22; TEMP 36.3–36.5; O2SAT 91–100; BMI 42.4
--- NOTE | 2023-01-13 00:31 | ECG_ITS ---
Measurements Intervals Tucker Rate: 59 P: KS: 0 QRS: 0 QRSD: 147 T: 133 QT: 514 QTc: 509 Interpretive Statements SINUS BRADYCARDIA WITH MARKED FIRST DEGREE AV BLOCK LEFT BUNDLE BRANCH BLOCK ABNORMAL ECG COMPARED TO ECG 01/12/2023 22:18:42 FIRST DEGREE AV BLOCK NOW PRESENT Electronically Signed On 01-13-2023 8:02:56 CDT by Nasim Gee D.O.
[2023-01-13 01:17] LABS: Anion Gap 12 mmol/L (8-16); Blood Urea Nitrogen 95 mg/dL (9-20); Calcium 11.2 mg/dL (8.4-10.2); Carbon Dioxide 26 mmol/L (22-30); Chloride 102 mmol/L (98-107); Estimated Glomerular Filt Rate 7; Glucose 76 mg/dL (65-110); Potassium 5.8 mmol/L (3.4-5.0); Sodium 140 mmol/L (137-145)
--- NOTE | 2023-01-13 03:47 | PC.NURSE ---
patient's sister wants Russell at [phone]
--- NOTE | 2023-01-13 05:23 | ADMGEN ---
This patient, Kobi Salter, was admitted to [facility] Surg Room 312-01 at 0340. Patient/family oriented to hospital policies and general routines including ID bracelet, bed and alarms, visiting hours, pain management, procedures, bathroom and other care routines, personal items, smoking policy, room service/diet, and visiting hours. Information on how to activate the Rapid Response Team has been discussed. Patient/Family are encouraged to report perceived risks to care and to ask questions if they do not understand what they are told or what they should do.
[2023-01-13 08:49] LABS: Anion Gap 15 mmol/L (8-16); Blood Urea Nitrogen 94 mg/dL (9-20); Calcium 9.1 mg/dL (8.4-10.2); Carbon Dioxide 24 mmol/L (22-30); Chloride 102 mmol/L (98-107); Estimated CRCL calculation 9 ml/min; Estimated Glomerular Filt Rate 7; Glucose 97 mg/dL (65-110); Potassium 6.1 mmol/L (3.4-5.0); Sodium 141 mmol/L (137-145)
[2023-01-13] MEDS: FIDAXOMICIN 200 MG TABLET PO ×2 (09:59→21:35)
--- NOTE | 2023-01-13 10:29 | PM.CNNEP ---
Assessment and Plan Assessment and plan (1) ESRD (end stage renal disease): Code(s): N18.6 - End stage renal disease Status: Acute Assessment and Plan: the patient has end-stage renal disease. He is on dialysis 3 times a week on Tuesdays and Saturdays. He has last treatment on . His volume status looks okay. His potassium is a little bit high at 6.1. Will give lokelma and repeat. 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 (5) Chronic combined systolic and diastolic heart failure: Code(s): I50.42 - Chronic combined systolic (congestive) and diastolic (congestive) heart failure Status: Acute Assessment and Plan: EF is low. Volume status looks okay (6) Hyperkalemia: Code(s): E87.5 - Hyperkalemia Status: Acute Assessment and Plan: Potassium is a little high. Will give lokelma today and repeat potassium. History of Present Illness Reason for Consult Consult date: 01/13/23 Chief Complaint Chief complaint: CKD History of Present Illness Narrative: Kobi is a very pleasant 57-year-old gentleman who has multiple medical problems including end-stage renal disease on dialysis 3 times a week, peripheral vascular disease status post bilateral [id number] amputation, diabetes, hypertension, depression, arthritis, coronary disease, congestive heart failure with an ejection fraction 29%, transient atrial fibrillation 3 years ago after bypass, hyperlipidemia, and sleep apnea but does not use a machine because he has to have a new test. The patient says he was well until a couple of days ago when he developed diarrhea. He also says the he had some abdominal discomfort and a little bit of nausea. He threw up some phlegm but is unsure really came from his belly. No blood in his stools or blood from above. No fevers or chills but he did have cold sweats. He also was fairly weak and so came to the ER. In the ER he was evaluated and found to have a potassium of 5.6 but otherwise labs are okay. CT showed bilateral atelectasis/ pneumonia, cholelithiasis without cholecystitis, and soft tissue thickening posterior to the ischial tuberosity is and greater trochanter suspicious for cellulitis. The patient was admitted. He was placed on Dificid because of the diarrhea and was given lokelma. Review of Systems Review of Systems: All systems reviewed & are unremarkable except as noted in HPI and below Eyes: Eyes: Reports no additional eye complaints ENT: Reports system reviewed and no additional complaints, except as documented Cardiovascular: Cardiovascular: Reports no additional cardiovascular complaints Respiratory: Respiratory: Reports no additional respiratory complaints Gastrointestinal: Gastrointestinal: Reports no additional gastrointestinal complaints Genitourinary: Genitourinary: Reports no additional male genitourinary complaints Musculoskeletal: Musculoskeletal: Reports no additional musculoskeletal complaints Integumentary/Breasts: Skin/Breast: Reports system reviewed and no additional complaints, except as docu Neurologic: Reports system reviewed and no additional complaints, except as documented PMFSH Past Me
--- NOTE | 2023-01-13 10:48 | PM.CNGS ---
Assessment and Plan Assessment and plan (1) Choledocholithiasis with cholecystitis: Code(s): K80.40 - Calculus of bile duct with cholecystitis, unspecified, without obstruction Status: Acute Assessment and Plan: exam benign, will get RUQ U/S for further evaluation (2) Uncontrolled diabetes mellitus with neurologic complication: Code(s): E11.49 - Type 2 diabetes mellitus with other diabetic neurological complication; E11.65 - Type 2 diabetes mellitus with hyperglycemia Status: Acute Assessment and Plan: stable, cont med mgmt (3) ESRD (end stage renal disease): Code(s): N18.6 - End stage renal disease Status: Acute Assessment and Plan: nephrology following, had HD on Thrusday (4) 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 heart failure: Code(s): I50.43 - Acute on chronic combined systolic (congestive) and diastolic (congestive) heart failure Status: Acute Assessment and Plan: stable, med mgmt History of Present Illness Consult details Consult date: 01/13/23 Reason for consult: gallstones Requesting physician: Kemar Atkins MD Narrative: The patient is a 57-year-old male presenting to the emergency department complaining of weakness, generalized abdominal pain. The patient reports that he has had some diarrhea over the last few days as well. The patient reports that he has not had much of an appetite and has had some nausea. Of note, approximately 2 months ago the patient was admitted to an outside facility and had cholecystitis with choledocholithiasis. The patient had ERCP at that time and was told to have interval cholecystectomy. The patient subsequently developed C diff colitis and had to be readmitted approximately 5 weeks ago. Review of Systems Constitutional: Constitutional: Reports as per HPI, Denies anorexia, Denies chills, Reports fatigue, Denies fever(s), Reports lethargy, Denies malaise, Reports night sweats, Reports poor appetite, Reports weakness, Denies weight gain and Denies weight loss Eyes: Eyes: Reports no additional eye complaints ENT: Reports system reviewed and no additional complaints, except as documented Cardiovascular: Cardiovascular: Reports no additional cardiovascular complaints Respiratory: Respiratory: Reports no additional respiratory complaints Gastrointestinal: Gastrointestinal: Reports as per HPI, Reports abdominal pain, Reports bloating, Reports GI cramping, Reports diarrhea, Reports nausea, Denies vomiting and Denies hematemesis Genitourinary: Genitourinary: Reports no additional male genitourinary complaints Musculoskeletal: Musculoskeletal: Reports no additional musculoskeletal complaints Integumentary/Breasts: Skin/Breast: Reports system reviewed and no additional complaints, except as docu Neurologic: Reports system reviewed and no additional complaints, except as documented Psychiatric: Psychiatric: Reports no additional psychiatric complaints Endocrine: Endocrine: Reports no additional endocrine complaints Hematologic/Lymphatic: Hematologic/Lymphatic: Reports no additional hematologic/lymphatic complaints Allergic/Immunologic: Allergic/Immunologic: Reports no additional allergic/immunologic complaints [facility] Past Medical History Medical History Acute on chronic blood loss anemia 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 heart failure Last echo 06/06/2020 EF approximately 35-40% and diastolic dysfunction NATAN (acute kidney injury) Anemia Anemia of chronic disease Anxiety and depression Arthritis Below-knee amputation of left lower extremity with complication CAD (coronary artery disease) CABG x4 2017, Lexiscan stress test January 2020 moderate sized mild partially reversible perfusion defect involving inferior wall consistent with mixed ischemia and infarct, large severe partially reve
--- NOTE | 2023-01-13 10:55 | PM.IMHP ---
H&P: HPI History of Present Illness Date/Time: 01/13/23 10:55 Chief Complaint: Abdominal pain Narrative: 57-year-old male with a history of diabetes, CKD on hemodialysis, CHF, s/p bilateral knee amputation, CAD s/p CABG in 2018, and C. difficile reports for evaluation of subjective fever, diaphoresis and right lower quadrant pain that started 4 hours prior to arrival while the patient was laying in bed.? States the symptoms lasted approximately 3 hours and have since subsided.? He did not take medication for his fever.? Reports he came to the ED because he was concerned for his health given his extensive medical history.? He is also complaining of loose stools for the past 5 weeks, worsening over the past 2 days.? He was hospitalized 7 weeks ago for multiple gallstones , underwent ERCP, and he was supposed to follow-up to get his gallbladder removed however never did.? Patient states 2 weeks later, he developed diarrhea and was diagnosed with C. difficile while in rehab and underwent p.o. treatment, and of medication unknown.? States the diarrhea never fully resolved, however the past 2 days has become more watery and foul-smelling.? Reports 3-4 episodes of diarrhea in the past 2 days.? Patient's last dialysis appointment was 2 days ago.? He denies chest pain, shortness of breath, headache or vision changes, focal numbness or weakness, back pain, urinary complaints, hematochezia or melena, vomiting, cough or congestion.? Patient states he is currently being worked up outpatient for sleep apnea. Review of Systems Constitutional: Constitutional: Reports as per HPI, Denies anorexia, Denies chills, Reports fatigue, Denies fever(s), Reports lethargy, Denies malaise, Reports night sweats, Reports poor appetite, Reports weakness, Denies weight gain and Denies weight loss Eyes: Eyes: Reports no additional eye complaints ENT: Reports system reviewed and no additional complaints, except as documented Cardiovascular: Cardiovascular: Reports no additional cardiovascular complaints Respiratory: Respiratory: Reports no additional respiratory complaints Gastrointestinal: Gastrointestinal: Reports as per HPI, Reports abdominal pain, Reports bloating, Reports GI cramping, Reports diarrhea, Reports nausea, Denies vomiting and Denies hematemesis Genitourinary: Genitourinary: Reports no additional male genitourinary complaints Musculoskeletal: Musculoskeletal: Reports no additional musculoskeletal complaints Integumentary/Breasts: Skin/Breast: Reports system reviewed and no additional complaints, except as docu Neurologic: Reports system reviewed and no additional complaints, except as documented Psychiatric: Psychiatric: Reports no additional psychiatric complaints Endocrine: Endocrine: Reports no additional endocrine complaints Hematologic/Lymphatic: Hematologic/Lymphatic: Reports no additional hematologic/lymphatic complaints Allergic/Immunologic: Allergic/Immunologic: Reports no additional allergic/immunologic complaints PMFSH Past Medical History Medical History Acute on chronic blood loss anemia 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 heart failure Last echo 06/06/2020 EF approximately 35-40% and diastolic dysfunction NATAN (acute kidney injury) Anemia Anemia of chronic disease Anxiety and depression Arthritis Below-knee amputation of left lower extremity with complication CAD (coronary artery disease) CABG x4 2017, Lexiscan stress test January 2020 moderate sized mild partially reversible perfusion defect involving inferior wall consistent with mixed ischemia and infarct, large severe partially reversible perfusion defect involving the anterior lateral and inferior lateral wall consistent with mixed ischemia infarct, small mild partially reversible freezing defect involving left ventricular apex and mid anterior segment consistent with mix ischemia and infarct with E
[2023-01-13] MEDS: SODIUM ZIRCONIUM CYCLOSILICATE 10 GM POWD.PACK 20 GM PO (11:30)
[2023-01-13 11:32] LABS: Hepatitis B Surface Antigen Negative (Negative)
[2023-01-13 14:16] LABS: Potassium 5.6 mmol/L (3.4-5.0)
[2023-01-13] MEDS: ISOSORBIDE DINITRATE 20 MG TABLET PO ×2 (15:36→17:09)
[2023-01-13] MEDS: SEVELAMER CARBONATE 800 MG TABLET 1600 MG PO (17:07)
[2023-01-14] VITALS (20 sets, daily range): BP systolic 128–166; BP diastolic 56–85; PULSE 49–70; RESP 16–18; TEMP 36–36.6; O2SAT 91–98
[2023-01-14 06:49] LABS: Basophils Absolute Auto 0.1 K/mm3 (0.0-0.1); Basophils Percent Auto 0.5 % (0.2-1.2); Eosinophils Absolute Auto 0.2 K/mm3 (0-0.3); Eosinophils Percent Auto 2.2 % (0-4.4); Hematocrit 30.2 % (42.0-52.0); Hemoglobin 9.3 g/dL (14.0-18.0); Immature Granulocyte Absolute 0.05 K/mm3 (0.00-0.031); Immature Granulocyte Percent A 0.5 % (0-0.5); Mean Corpuscular HGB Conc 30.8 g/dl (32-36); Mean Corpuscular Volume 103.8 fl (80-100); Mean Platelet Volume 11.6 fl (7.4-10.4); Monocytes Absolute Auto 0.8 K/mm3 (0.1-0.6); Monocytes Percent Auto 7.8 % (2.6-8.5); Neutrophils Absolute Auto 8.3 K/mm3 (1.3-6.7); Platelet Count Result 162 k/mm3 (150-375); Red Blood Count 2.91 M/mm3 (4.6-6.20); Red Cell Distribution Width 16.2 % (11.5-14.5)
[2023-01-14 06:58] LABS: Albumin Level 3.6 g/dL (3.5-5.1); Anion Gap 15 mmol/L (8-16); Blood Urea Nitrogen 104 mg/dL (9-20); Calcium 8.4 mg/dL (8.4-10.2); Carbon Dioxide 24 mmol/L (22-30); Chloride 100 mmol/L (98-107); Estimated CRCL calculation 8 ml/min; Estimated Glomerular Filt Rate 6; Glucose 122 mg/dL (65-110); Phosphorus 8.1 mg/dL (2.5-4.5); Potassium 5.9 mmol/L (3.4-5.0); Sodium 139 mmol/L (137-145)
[2023-01-14 08:58] LABS: Hepatitis B Surface Antigen Negative (Negative)
[2023-01-14] MEDS: EPOETIN ALFA-EPBX 4,000 UNITS/ML VIAL 4000 UNITS IV PUSH (09:30)
[2023-01-14] MEDS: SODIUM CHLORIDE 0.9% IV 1,000 ML 999 ML IV CONT (09:31)
--- NOTE | 2023-01-14 10:00 | P.PNNP_ITS ---
Progress Note: A&P Assessment and Plan (1) ESRD (end stage renal disease): Code(s): N18.6 - End stage renal disease Status: Chronic Assessment and Plan: * HD today since missed treatment on Saturday * plan HD tomorrow to resume T/T/S dialysis schedule * follow electrolytes. volume status, and clearance (2) Hypertension: Code(s): I10 - Essential (primary) hypertension Status: Acute Assessment and Plan: * reasonable control * continue current medications * follow trend of hemodynamics (3) Chronic diarrhea: Code(s): K52.9 - Noninfective gastroenteritis and colitis, unspecified Status: Chronic Assessment and Plan: * suspected C. difficile colitis * on Fidaxomicin * follow-up on stool cultures (4) Chronic combined systolic and diastolic heart failure: Code(s): I50.42 - Chronic combined systolic (congestive) and diastolic (congestive) heart failure Status: Acute Assessment and Plan: * known cardiomyopathy * appears compensated at this time * ongoing fluid removal with dialysis to maintain euvolemia (5) Anemia: Code(s): D64.9 - Anemia, unspecified Status: Chronic Assessment and Plan: * due to ESRD and possible acute illness * Epogen with HD * follow trend of H/H (6) Diabetes mellitus with hyperglycemia: Qualifiers: Diabetes mellitus ocean transportation intermediary insulin use: with penitentiary use Diabetes mellitus type: type 2 Qualified Code(s): E11.65 - Type 2 diabetes mellitus with hyperglycemia; Z79.4 - snf (current) use of insulin Code(s): E11.65 - Type 2 diabetes mellitus with hyperglycemia Status: Chronic Assessment and Plan: * follow accuchecks * glycemic control per hospitalists Will continue to follow. Subjective Date/time seen: 01/14/23 10:00 Interval history: Follow-up for end stage renal disease on hemodialysis. Chart reviewed -- assuming care from Dr. Almodovar; tolerating dialysis treatment at the time of my visit (seen on HD at 9:50AM); no apparent distress voiced; no issues overnight or earlier this AM. Exam Narrative: General: WD/WN male in NAD Heart: normal S1 and S2; no rub Lungs: clear to auscultation Abdomen: soft, nontender, nondistended, positive bowel sounds; s/p bilateral BKAs Extremities: no cyanosis or clubbing; no edema Skin: warm and dry Objective Data Vital Signs Vital Signs: Vital Signs Temp Pulse Resp BP Pulse Ox O2 Del Method 01/14/23 10:00 56 L 133/85 01/14/23 09:50 54 L 128/64 01/14/23 09:30 54 L 129/73 01/14/23 09:10 55 L 135/69 01/14/23 08:44 60 147/76 H 01/14/23 08:15 97.8 F 57 L 18 146/70 H 01/14/23 08:24 54 L 141/67 H 01/14/23 05:58 97 F L 58 L 16 166/72 H 98 01/14/23 04:00 49 L 01/14/23 00:00 50 L 01/13/23 20:00 57 L 01/13/23 20:00 59 L 14 91 Room Air 01/13/23 21:17 97.3 F L 59 L 14 136/60 91 01/13/23 17:09 149/62 H 01/13/23 16:00 59 L 01/13/23 12:00 58 L 01/13/23 13:32 97.4 F L 62 18 145/70 H 97 Intake/Output Intake/Output: Intake & Output 01/11/23 01/12/23 01/13/23 01/14/23
--- NOTE | 2023-01-14 10:00 | PM.PNNEP ---
Progress Note: A&P Assessment and Plan (1) ESRD (end stage renal disease): Code(s): N18.6 - End stage renal disease Status: Chronic Assessment and Plan: HD today since missed treatment on Saturday plan HD tomorrow to resume T/T/S dialysis schedule follow electrolytes. volume status, and clearance (2) Hypertension: Code(s): I10 - Essential (primary) hypertension Status: Acute Assessment and Plan: reasonable control continue current medications follow trend of hemodynamics (3) Chronic diarrhea: Code(s): K52.9 - Noninfective gastroenteritis and colitis, unspecified Status: Chronic Assessment and Plan: suspected C. difficile colitis on Fidaxomicin follow-up on stool cultures (4) Chronic combined systolic and diastolic heart failure: Code(s): I50.42 - Chronic combined systolic (congestive) and diastolic (congestive) heart failure Status: Acute Assessment and Plan: known cardiomyopathy appears compensated at this time ongoing fluid removal with dialysis to maintain euvolemia (5) Anemia: Code(s): D64.9 - Anemia, unspecified Status: Chronic Assessment and Plan: due to ESRD and possible acute illness Epogen with HD follow trend of H/H (6) Diabetes mellitus with hyperglycemia: Qualifiers: Diabetes mellitus half-way insulin use: with half-way use Diabetes mellitus type: type 2 Qualified Code(s): E11.65 - Type 2 diabetes mellitus with hyperglycemia; 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 Subjective Date/time seen: 01/14/23 10:00 Interval history: Follow-up for end stage renal disease on hemodialysis. Chart reviewed -- assuming care from Dr. Almodovar; tolerating dialysis treatment at the time of my visit (seen on HD at 9:50AM); no apparent distress voiced; no issues overnight or earlier this AM. Exam Narrative: General: WD/WN male in NAD Heart: normal S1 and S2; no rub Lungs: clear to auscultation Abdomen: soft, nontender, nondistended, positive bowel sounds; s/p bilateral BKAs Extremities: no cyanosis or clubbing; no edema Skin: warm and dry Objective Data Vital Signs Vital Signs: Vital Signs Temp Pulse Resp BP Pulse Ox O2 Del Method 01/14/23 10:00 56 L 133/85 01/14/23 09:50 54 L 128/64 01/14/23 09:30 54 L 129/73 01/14/23 09:10 55 L 135/69 01/14/23 08:44 60 147/76 H 01/14/23 08:15 97.8 F 57 L 18 146/70 H 01/14/23 08:24 54 L 141/67 H 01/14/23 05:58 97 F L 58 L 16 166/72 H 98 01/14/23 04:00 49 L 01/14/23 00:00 50 L 01/13/23 20:00 57 L 01/13/23 20:00 59 L 14 91 Room Air 01/13/23 21:17 97.3 F L 59 L 14 136/60 91 01/13/23 17:09 149/62 H 01/13/23 16:00 59 L 01/13/23 12:00 58 L 01/13/23 13:32 97.4 F L 62 18 145/70 H 97 Intake/Output Intake/Output: Intake & Output 01/11/23 01/12/23 01/13/23 01/14/23 23:59 23:59 23:59 23:59 Intake Total 1160 200 Output Total 0 Balance 1160 200 Meds/Results Medications: Active Medications Generic Name Dose Route Start Last Admin Trade Name Freq PRN Reason Stop Dose Admin Acetaminophen 650 mg 01/13/23 02:00 Acetaminophen 325 Mg Tablet PO Q4H PRN Mild Pain (1-3) or Fever Epoetin Bradford-epbx 4,000 units 01/14/23 20:55 01/14/23 09:30 Epoetin Bradford-Epbx 4,000 Units/Ml Vial IV PUSH 01/14/23 20:56 4,000 units ONCE ONE Administration Fenofibrate 48 mg 01/14/23 09:00 Fenofibrate,Micronized 48 Mg Tablet PO DAILY SALVADOR Fidaxomicin 200 mg 01/13/23 09:00 01/13/23 21:35 Fidaxomicin 200 Mg Tablet PO 200 mg Q12HR SALVADOR Administration Albumin Human
[2023-01-14] MEDS: SERTRALINE HCL 50 MG TABLET 150 MG PO (12:41)
[2023-01-14] MEDS: FIDAXOMICIN 200 MG TABLET PO ×2 (12:41→20:52)
[2023-01-14] MEDS: METOPROLOL SUCCINATE EXT REL 12.5 MG TABCR PO (12:41)
[2023-01-14] MEDS: FENOFIBRATE,MICRONIZED 48 MG TABLET PO (12:42)
[2023-01-14] MEDS: SEVELAMER CARBONATE 800 MG TABLET 1600 MG PO ×2 (12:42→17:25)
[2023-01-14] MEDS: ISOSORBIDE DINITRATE 20 MG TABLET PO ×2 (12:42→17:25)
[2023-01-14] MEDS: TAMSULOSIN HCL 0.4 MG CAPSULE PO (12:42)
--- NOTE | 2023-01-14 13:36 | PM.IMPN ---
Progress Note: A&P Assessment and Plan (1) Choledocholithiasis with cholecystitis: Code(s): K80.40 - Calculus of bile duct with cholecystitis, unspecified, without obstruction Status: Acute Assessment and Plan: General surgery consulted. Right upper quadrant ultrasound ordered. Appreciate their input (2) CHF (congestive heart failure): Code(s): I50.9 - Heart failure, unspecified Status: Acute Assessment and Plan: Stable. Continue beta-zena and Imdur (3) CAD (coronary artery disease), autologous vein bypass graft: Code(s): I25.810 - Atherosclerosis of coronary artery bypass graft(s) without angina pectoris Status: Acute Assessment and Plan: Stable. No chest pain. Continue home meds (4) Hypertension: Code(s): I10 - Essential (primary) hypertension Status: Acute Assessment and Plan: Continue home meds (5) ESRD (end stage renal disease): Code(s): N18.6 - End stage renal disease Status: Chronic Assessment and Plan: Nephrology consulted. Patient on dialysis Plan Full code Subjective Date/time seen: 01/14/23 13:36 Interval history: 57-year-old male with a history of diabetes, CKD on hemodialysis, CHF, s/p bilateral knee amputation, CAD s/p CABG in 2018, and C. difficile reports for evaluation of subjective fever, diaphoresis and right lower quadrant pain that started 4 hours prior to arrival while the patient was laying in bed.? States the symptoms lasted approximately 3 hours and have since subsided.? He did not take medication for his fever.? Reports he came to the ED because he was concerned for his health given his extensive medical history.? He is also complaining of loose stools for the past 5 weeks, worsening over the past 2 days.? He was hospitalized 7 weeks ago for multiple gallstones , underwent ERCP, and he was supposed to follow-up to get his gallbladder removed however never did.? Patient states 2 weeks later, he developed diarrhea and was diagnosed with C. difficile while in rehab and underwent p.o. treatment, and of medication unknown pt received dialysis today pt seen by surgeon awaiting us of gb Review of Systems Review of Systems: no issues mentioned Constitutional: Constitutional: Reports as per HPI, Denies anorexia, Denies chills, Reports fatigue, Denies fever(s), Reports lethargy, Denies malaise, Reports night sweats, Reports poor appetite, Reports weakness, Denies weight gain and Denies weight loss Eyes: Eyes: Reports no additional eye complaints ENT: Reports system reviewed and no additional complaints, except as documented Cardiovascular: Cardiovascular: Reports no additional cardiovascular complaints Respiratory: Respiratory: Reports no additional respiratory complaints Gastrointestinal: Gastrointestinal: Reports as per HPI, Reports abdominal pain, Reports bloating, Reports GI cramping, Reports diarrhea, Reports nausea, Denies vomiting and Denies hematemesis Genitourinary: Genitourinary: Reports no additional male genitourinary complaints Musculoskeletal: Musculoskeletal: Reports no additional musculoskeletal complaints Integumentary/Breasts: Skin/Breast: Reports system reviewed and no additional complaints, except as docu Neurologic: Reports system reviewed and no additional complaints, except as documented and Reports weakness Psychiatric: Psychiatric: Reports no additional psychiatric complaints Endocrine: Endocrine: Reports no additional endocrine complaints and Reports fatigue Hematologic/Lymphatic: Hematologic/Lymphatic: Reports no additional hematologic/lymphatic complaints Allergic/Immunologic: Allergic/Immunologic: Reports no additional allergic/immunologic complaints Exam Const: General: cooperative, comfortable, no acute distress, ill appearing and obese Nutritional Appearance: obese Orientation/consciousness: patient oriented x3 HENMT: Head: normal to inspectio
--- NOTE | 2023-01-14 14:53 | PM.PNGS ---
Progress Note: A&P Assessment and Plan (1) Choledocholithiasis with cholecystitis: Code(s): K80.40 - Calculus of bile duct with cholecystitis, unspecified, without obstruction Status: Acute Assessment and Plan: RUQ US with mild GB dilation and wall thickening. Abdominal exam benign, no abdominal pain, tolerating a renal diet. No indication for urgent surgical intervention. Would recommend to continue treatment of his C.diff and acute issues, then plan for outpatient follow-up once medically optimized for interval cholecystectomy. Recommended following a low fat diet in the interim. (2) Uncontrolled diabetes mellitus with neurologic complication: Code(s): E11.49 - Type 2 diabetes mellitus with other diabetic neurological complication; E11.65 - Type 2 diabetes mellitus with hyperglycemia Status: Acute (3) ESRD (end stage renal disease): Code(s): N18.6 - End stage renal disease Status: Chronic Assessment and Plan: Nephrology following, planning HD tomorrow. (4) 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 heart failure: Code(s): I50.43 - Acute on chronic combined systolic (congestive) and diastolic (congestive) heart failure Status: Acute Plan I have discussed the patient's case and plan of care with Dr. Harris. Subjective Subjective Date/Time Seen: 01/14/23 14:53 Patient reports: no new complaints, feels better, tolerating a regular diet (renal diet) and afebrile Interval history: This is a 57 yo with multiple medical problems who was hospitalized about 2 months ago at an outlying facility for cholecystitis with choledocholithiasis.? The patient had ERCP at that time and was told to have interval cholecystectomy, but has not yet had surgery.? The patient subsequently developed C diff colitis and had to be readmitted approximately 5 weeks ago. He presented to our ER two days ago with generalized abdominal pain and weakness. LFTs have been essentially normal. WBC normal today. CT showed gallstones with gallbladder wall thickening and intraluminal/biliary gas (which he had an ERCP recently). He has been admitted and is being treated with fidaxomicin for C.diff. RUQ US today and chart reviewed. He is seen today. He is tolerating a renal diet. Denies any abdominal pain, nausea, vomiting, or bloating. No other complaints at this time. Review of Systems Review of Systems: All systems reviewed & are unremarkable except as noted in HPI and below Exam Const: General: comfortable and no acute distress Orientation/consciousness: patient oriented x3 GI: Inspection: non-distended GI Palp: Yes Soft to palpation, No Tenderness to palpation present (GI), No Guarding due to palpation present (GI) and No Rebound tenderness present Auscultation: normal bowel sounds Objective Data Vital Signs Vital Signs: Vital Signs - 24 hr 01/13/23 16:00 01/13/23 17:09 01/13/23 21:17 Temperature 97.3 F L Pulse Rate 59 L 59 L Respiratory Rate 14 Blood Pressure 149/62 H 136/60 Pulse Oximetry 91 Oxygen Delivery 01/13/23 20:00 01/13/23 20:00 01/14/23 00:00 Temperature Pulse Rate 59 L 57 L 50 L Respiratory Rate 14 Blood Pressure Pulse Oximetry 91 Oxygen Delivery Room Air 01/14/23 04:00 01/14/23 05:58 01/14/23 08:24 Temperature 97 F L Pulse Rate 49 L 58 L 54 L Respiratory Rate 16 Blood Pressure 166/72 H 141/67 H Pulse Oximetry 98 Oxygen Delivery 01/14/23 08:15 01/14/23 08:44 01/14/23 09:10 Temperature 97.8 F Pulse Rate 57 L 60 55 L Respiratory Rate 18 Blood Pressure 146/70 H 147/76 H 135/69 Pulse Oximetry Oxygen Delivery 01/14/23 09:30 01/14/23 09:50 01/14/23 10:50 Temperature Pulse Rate 54 L 54 L 64 Respiratory Rate Blood Pressure 129/73 128/64 137/66 Pulse Oximetry Oxygen Delivery 01/14/23 10:10 01/14/23 10:30 01/14/23 11:10 Temperature Pulse Rate 56 L 55 L 68 Respiratory
[2023-01-15] VITALS (18 sets, daily range): BP systolic 135–167; BP diastolic 66–93; PULSE 58–77; RESP 18; TEMP 36–36.7; O2SAT 93–98
[2023-01-15 06:34] LABS: Alanine Aminotransferase 37 U/L (6-50); Albumin Level 3.5 g/dL (3.5-5.1); Alkaline Phosphatase 127 U/L (38-126); Anion Gap 9 mmol/L (8-16); Aspartate Amino Transferase 56 U/L (17-59); Bilirubin,Total 0.8 mg/dL (0.2-1.3); Blood Urea Nitrogen 65 mg/dL (9-20); Calcium 7.9 mg/dL (8.4-10.2); Carbon Dioxide 34 mmol/L (22-30); Chloride 97 mmol/L (98-107); Estimated CRCL calculation 11 ml/min; Estimated Glomerular Filt Rate 9; Glucose 112 mg/dL (65-110); Potassium 4.1 mmol/L (3.4-5.0); Sodium 140 mmol/L (137-145)
[2023-01-15 08:37] LABS: Glucose Point of Care 111 mg/dl (65-105)
--- NOTE | 2023-01-15 09:27 | P.CDI_ITS ---
CDI Query Clarification Request Documented history of CHF. CHF noted on the assessment and plan. Furosemide listed as a home medication. Chest Xray on 01/13/23 notes edema Please specify type and acuity of heart failure if known. * Acute * Chronic * Acute on Chronic * Unknown * Systolic * Diastolic * Combined Systolic and Diastolic * Unknown <Nasrin Sotomayor RN - Last Filed: 01/15/23 09:29> Clarified Diagnosis Clarified Diagnosis: chronic systolic heartfailure <Lynne Olivas MD - Last Filed: 01/15/23 17:31>
--- NOTE | 2023-01-15 10:42 | PM.PNNEP ---
Progress Note: A&P Assessment and Plan (1) ESRD (end stage renal disease): Code(s): N18.6 - End stage renal disease Status: Chronic Assessment and Plan: HD today continue T/T/S dialysis schedule follow electrolytes. volume status, and clearance (2) Hypertension: Code(s): I10 - Essential (primary) hypertension Status: Acute Assessment and Plan: reasonable control continue current medications follow trend of hemodynamics (3) Chronic diarrhea: Code(s): K52.9 - Noninfective gastroenteritis and colitis, unspecified Status: Chronic Assessment and Plan: suspected C. difficile colitis on Fidaxomicin follow-up on stool cultures (4) Chronic combined systolic and diastolic heart failure: Code(s): I50.42 - Chronic combined systolic (congestive) and diastolic (congestive) heart failure Status: Acute Assessment and Plan: known cardiomyopathy appears compensated at this time ongoing fluid removal with dialysis to maintain euvolemia (5) Anemia: Code(s): D64.9 - Anemia, unspecified Status: Chronic Assessment and Plan: due to ESRD and possible acute illness Epogen with HD follow trend of H/H (6) Diabetes mellitus with hyperglycemia: Qualifiers: Diabetes mellitus type: type 2 Diabetes mellitus alf insulin use: with long term care social worker use Qualified Code(s): E11.65 - Type 2 diabetes mellitus with hyperglycemia; 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 Subjective Date/time seen: 01/15/23 10:42 Interval history: Follow-up for end stage renal disease on hemodialysis. Tolerating dialysis treatment at the time of my visit (seen on HD at 10:30AM); no apparent distress voiced; no issues overnight or earlier this AM; feels reasonably well. Exam Narrative: General: WD/WN male in NAD Heart: normal S1 and S2; no rub Lungs: clear to auscultation Abdomen: soft, nontender, nondistended, positive bowel sounds; s/p bilateral BKAs Extremities: no cyanosis or clubbing; no edema Skin: warm and intact Objective Data Vital Signs Vital Signs: Vital Signs Temp Pulse Resp BP Pulse Ox O2 Del Method 01/15/23 10:40 61 155/71 H 01/15/23 08:00 62 18 93 Room Air 01/15/23 08:00 62 01/15/23 10:20 62 153/71 H 01/15/23 10:00 64 167/84 H 01/15/23 09:40 64 143/74 H 01/15/23 09:20 61 160/76 H 01/15/23 09:11 58 L 135/67 01/15/23 08:58 98.0 F 66 18 136/92 H 01/15/23 06:00 97 F L 59 L 18 144/66 H 93 01/15/23 04:00 63 01/15/23 00:00 67 01/14/23 20:00 69 01/14/23 20:00 70 16 91 Room Air 01/14/23 21:31 97.8 F 70 16 133/56 L 91 01/14/23 16:33 97.3 F L 70 18 137/65 93 01/14/23 16:00 60 01/14/23 12:00 60 Intake/Output Intake/Output: Intake & Output 01/12/23 01/13/23 01/14/23 01/15/23 23:59 23:59 23:59 23:59 Intake Total 1160 990 370 Output Total 0 Balance 1160 990 370 Meds/Results Medications: Active Medications Generic Name Dose Route Start Last Admin Trade Name Freq PRN Reason Stop Dose Admin Acetaminophen 650 mg 01/13/23 02:00 Acetaminophen 325 Mg Tablet PO Q4H PRN Mild Pain (1-3) or Fever Epoetin Bradford-epbx 10,000 units 01/15/23 20:30 01/15/23 11:24 Epoetin Bradford-Epbx 10,000 Units/Ml Vial IV PUSH 01/15/23 20:31 10,000 units ONCE ONE Administration Fenofibrate 48 mg 01/14/23 09:00 01/14/23 12:42 Fenofibrate,Micronized 48 Mg Tablet PO 48 mg DAILY SALVADOR Administration Fidaxomicin 200 mg 01/13/23 09:00 01/14/23 20:52 Fidaxomicin 200 Mg Tablet PO 200 mg Q12HR SALVADOR Administration Albumin Human 50 mls @ 999 ml
--- NOTE | 2023-01-15 10:42 | P.PNNP_ITS ---
Progress Note: A&P Assessment and Plan (1) ESRD (end stage renal disease): Code(s): N18.6 - End stage renal disease Status: Chronic Assessment and Plan: * HD today * continue T/T/S dialysis schedule * follow electrolytes. volume status, and clearance (2) Hypertension: Code(s): I10 - Essential (primary) hypertension Status: Acute Assessment and Plan: * reasonable control * continue current medications * follow trend of hemodynamics (3) Chronic diarrhea: Code(s): K52.9 - Noninfective gastroenteritis and colitis, unspecified Status: Chronic Assessment and Plan: * suspected C. difficile colitis * on Fidaxomicin * follow-up on stool cultures (4) Chronic combined systolic and diastolic heart failure: Code(s): I50.42 - Chronic combined systolic (congestive) and diastolic (congestive) heart failure Status: Acute Assessment and Plan: * known cardiomyopathy * appears compensated at this time * ongoing fluid removal with dialysis to maintain euvolemia (5) Anemia: Code(s): D64.9 - Anemia, unspecified Status: Chronic Assessment and Plan: * due to ESRD and possible acute illness * Epogen with HD * follow trend of H/H (6) Diabetes mellitus with hyperglycemia: Qualifiers: Diabetes mellitus type: type 2 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 Subjective Date/time seen: 01/15/23 10:42 Interval history: Follow-up for end stage renal disease on hemodialysis. Tolerating dialysis treatment at the time of my visit (seen on HD at 10:30AM); no apparent distress voiced; no issues overnight or earlier this AM; feels reasonably well. Exam Narrative: General: WD/WN male in NAD Heart: normal S1 and S2; no rub Lungs: clear to auscultation Abdomen: soft, nontender, nondistended, positive bowel sounds; s/p bilateral BKAs Extremities: no cyanosis or clubbing; no edema Skin: warm and intact Objective Data Vital Signs Vital Signs: Vital Signs Temp Pulse Resp BP Pulse Ox O2 Del Method 01/15/23 10:40 61 155/71 H 01/15/23 08:00 62 18 93 Room Air 01/15/23 08:00 62 01/15/23 10:20 62 153/71 H 01/15/23 10:00 64 167/84 H 01/15/23 09:40 64 143/74 H 01/15/23 09:20 61 160/76 H 01/15/23 09:11 58 L 135/67 01/15/23 08:58 98.0 F 66 18 136/92 H 01/15/23 06:00 97 F L 59 L 18 144/66 H 93 01/15/23 04:00 63 01/15/23 00:00 67 01/14/23 20:00 69 01/14/23 20:00 70 16 91 Room Air 01/14/23 21:31 97.8 F 70 16 133/56 L 91 01/14/23 16:33 97.3 F L 70 18 137/65 93 01/14/23 16:00 60 01/14/23 12:00 60 Intake/Output Intake/Output: Intake & Output 01/12/23 01/13/23 01/14/23 01/15/23 23:59 23:59 23:59 23:59 Intak
--- NOTE | 2023-01-15 11:13 | PM.PNGS ---
Progress Note: A&P Assessment and Plan (1) Choledocholithiasis with cholecystitis: Code(s): K80.40 - Calculus of bile duct with cholecystitis, unspecified, without obstruction Status: Acute Assessment and Plan: cont low fat diet, ok to dc from surgical standpoint, will need medical optimization prior to elective cholecystectomy, will s/o, call c ?s, issues Subjective Subjective Date/Time Seen: 01/15/23 11:13 Interval history: no acute issues, no abd pain, fani low fat diet Review of Systems Review of Systems: All systems reviewed & are unremarkable except as noted in HPI and below Exam Const: General: cooperative, comfortable, no acute distress and ill appearing Resp: Auscultation: clear to auscultation bilaterally Cardio: Rate: regular rate Rhythm: regular rhythm GI: Inspection: normal to inspection GI Palp: No abdominal tenderness and Yes Soft to palpation Objective Data Vital Signs Vital Signs: Vital Signs - 24 hr 01/14/23 11:25 01/14/23 11:25 01/14/23 12:00 Temperature 36.5 C Pulse Rate 69 60 60 Respiratory Rate 18 Blood Pressure 153/75 H 160/74 H Pulse Oximetry Oxygen Delivery 01/14/23 16:00 01/14/23 16:33 01/14/23 21:31 Temperature 36.3 C L 36.6 C Pulse Rate 60 70 70 Respiratory Rate 18 16 Blood Pressure 137/65 133/56 L Pulse Oximetry 93 91 Oxygen Delivery 01/14/23 20:00 01/14/23 20:00 01/15/23 00:00 Temperature Pulse Rate 70 69 67 Respiratory Rate 16 Blood Pressure Pulse Oximetry 91 Oxygen Delivery Room Air 01/15/23 04:00 01/15/23 06:00 01/15/23 08:58 Temperature 36.1 C L 36.7 C Pulse Rate 63 59 L 66 Respiratory Rate 18 18 Blood Pressure 144/66 H 136/92 H Pulse Oximetry 93 Oxygen Delivery 01/15/23 09:11 01/15/23 09:20 01/15/23 09:40 Temperature Pulse Rate 58 L 61 64 Respiratory Rate Blood Pressure 135/67 160/76 H 143/74 H Pulse Oximetry Oxygen Delivery 01/15/23 10:00 01/15/23 10:20 01/15/23 08:00 Temperature Pulse Rate 64 62 62 Respiratory Rate Blood Pressure 167/84 H 153/71 H Pulse Oximetry Oxygen Delivery 01/15/23 08:00 Temperature Pulse Rate 62 Respiratory Rate 18 Blood Pressure Pulse Oximetry 93 Oxygen Delivery Room Air Intake/Output Intake/Output: Intake & Output 01/12/23 01/13/23 01/14/23 01/15/23 23:59 23:59 23:59 23:59 Intake Total 1160 990 370 Output Total 0 Balance 1160 990 370 Meds/Results Medications: Active Medications Generic Name Dose Route Start Last Admin Trade Name Freq PRN Reason Stop Dose Admin Acetaminophen 650 mg 01/13/23 02:00 Acetaminophen 325 Mg Tablet PO Q4H PRN Mild Pain (1-3) or Fever Epoetin Bradford-epbx 10,000 units 01/15/23 20:30 Epoetin Bradford-Epbx 10,000 Units/Ml Vial IV PUSH 01/15/23 20:31 ONCE ONE Fenofibrate 48 mg 01/14/23 09:00 01/14/23 12:42 Fenofibrate,Micronized 48 Mg Tablet PO 48 mg DAILY SALVADOR Administration Fidaxomicin 200 mg 01/13/23 09:00 01/14/23 20:52 Fidaxomicin 200 Mg Tablet PO 200 mg Q12HR SALVADOR Administration Albumin Human 50 mls @ 999 mls/hr 01/13/23 22:55 Albutein IVPB 02/12/23 22:54 Q10M PRN HYPOTENSION Isosorbide Dinitrate 20 mg 01/13/23 13:00 01/14/23 17:25 Isosorbide Dinitrate 20 Mg Tablet PO 20 mg TID SALVADOR Administration Metoprolol Succinate 12.5 mg 01/14/23 09:00 01/14/23 12:41 Metoprolol Succinate Ext Rel 12.5 Mg Tabcr PO 12.5 mg DAILY SALVADOR Administration Ondansetron HCl 4 mg 01/13/23 02:00 Ondansetron Inj 4 Mg/2 Ml Vial IV PUSH Q4H PRN Nausea Sertraline HCl 150 mg 01/14/23 09:00 01/14/23 12:41 Sertraline Hcl 50 Mg Tablet PO 150 mg DAILY SALVADOR Administration Sevelamer Carbonate 1,600 mg 01/13/23 12:00 01/14/23 17:25 Sevelamer Carbonate 800 Mg Tablet PO 1,600 mg TIDWM SALVADOR Administration Tamsulosin HCl 0.4 mg 01/14/23 09:00 01/14/23 12:42 Tamsulosin H
[2023-01-15] MEDS: EPOETIN ALFA-EPBX 10,000 UNITS/ML VIAL 10000 UNITS IV PUSH (11:24)
[2023-01-15] MEDS: TAMSULOSIN HCL 0.4 MG CAPSULE PO (13:10)
[2023-01-15] MEDS: SERTRALINE HCL 50 MG TABLET 150 MG PO (13:10)
[2023-01-15] MEDS: SEVELAMER CARBONATE 800 MG TABLET 1600 MG PO (13:10)
[2023-01-15] MEDS: METOPROLOL SUCCINATE EXT REL 12.5 MG TABCR PO (13:10)
[2023-01-15] MEDS: ISOSORBIDE DINITRATE 20 MG TABLET PO (13:11)
[2023-01-15] MEDS: FIDAXOMICIN 200 MG TABLET PO (13:11)
[2023-01-15] MEDS: FENOFIBRATE,MICRONIZED 48 MG TABLET PO (13:11)
--- NOTE | 2023-02-09 15:27 | PM.DS ---
DS: Admitting Diagnosis Discharge Date 01/15/23 Admitting Diagnosis nausea vomiting and diarrhea DS: Discharge Diagnosis Discharge Diagnosis (1) Choledocholithiasis with cholecystitis: Code(s): K80.40 - Calculus of bile duct with cholecystitis, unspecified, without obstruction Status: Acute Assessment and Plan: General surgery consulted. Right upper quadrant ultrasound ordered. Appreciate their input, pt will benefit with a elective cholecystectomy (2) CHF (congestive heart failure): Code(s): I50.9 - Heart failure, unspecified Status: Chronic Assessment and Plan: Stable. Continue beta-zena and Imdur (3) CAD (coronary artery disease), autologous vein bypass graft: Code(s): I25.810 - Atherosclerosis of coronary artery bypass graft(s) without angina pectoris Status: Acute Assessment and Plan: Stable. No chest pain. Continue home meds (4) Hypertension: Code(s): I10 - Essential (primary) hypertension Status: Acute Assessment and Plan: Continue home meds (5) ESRD (end stage renal disease): Code(s): N18.6 - End stage renal disease Status: Chronic Assessment and Plan: Nephrology consulted. Patient on dialysis Plan Full code DS: Summary Hospital Course Hospital Course: 57-year-old male patient who has end-stage renal disease any has dialysis on Saturday.? The patient came to the emergency room with complaints of abdominal pain nausea vomiting and shortness of breath.? His abdominal pain started approximately 3-4 days ago it is located around his umbilicus area.? He stated that is crampy pain and it is nonradiating in his pain level 7 the 10 in intensity and constant.? The patient stated that he had too much diarrhea to go to dialysis on Saturday and he did not receive his full dose on Saturday.? He has no fevers chills niece stated that the diarrhea has slowed down.? H&H is 10.4? And 32.8 platelets 143. potassium 6.4.? Anion gap 18 BUN greater than 120 creatinine 9.3. he was negative for influenza a B RSV and COVID.? Nephrology was consulted.? And the patient was taken directly to hemodialysis.? the patient was given IV fluids, regular insulin, he in hydromorphone, Lasix, Epogen, D50, calcium gluconate,? zirconium,and albumin. The patient is somnolent. the patient is being admitted to observation status on the date of service of 02/07/2023 Time Spent with Patient Time attestation: Total time spent providing and/or coordinating discharge services: Exam Const: General: cooperative, comfortable, no acute distress, ill appearing and obese Nutritional Appearance: obese Orientation/consciousness: patient oriented x3 HENMT: Head: normal to inspection, normocephalic and atraumatic Eyes: General: appearance normal, both eyes and all related structures Neck: Neck: normal visual inspection, full ROM and no lymphadenopathy Resp: Auscultation: clear to auscultation bilaterally Cardio: Rate: regular rate Rhythm: regular rhythm GI: Inspection: normal to inspection and non-distended Skin: General skin exam: normal color and no rashes or lesions noted Neuro: General: patient oriented x3 and CN's II-XI intact bilaterally Extrem: General: normal to inspection and full ROM Psych: Appearance: grossly normal Discharge Plan Discharge Attending physician on discharge: Lynne Olivas Consulting providers: Louisa Clark; Jimmie Almodovar; Noris Cross; Lakeisha Harris; Jose A Zimmer; Amando Cortes; Nasim Gee; Jone Bay; Kemar Atkins; Sheri Mi Discharging Clinician: Lynne Olivas Anticipated Discharge Date/Time: 01/15/23 11:02 Patient Disposition: Home, Self-Care Activity: as tolerated Diet: renal and low fat Discharge Instructions: continue dialysis as outpatient Patient Instructions: Antibiotic Form, Heart Failure (GEN), Low Fat Diet (DC) Stand Alone
== END 2023-01-15 14:20 | disposition home or self-care (01) | DRG 371 ==
LOC: ANHED 01-13 02:05 → ANH3MEDSUR 01-13 04:53
PROVIDERS: Emergency Medicine; Hospitalist; Internal Medicine Nephrology; Admitting Provider Internal Medicine; Emergency Provider Physician Assistant; Visit Provider Family Medicine
DX: A04.72 Enterocolitis due to Clostridium difficile, not specified as recurrent (principal); N18.6 End stage renal disease; K80.40 Calculus of bile duct with cholecystitis, unspecified, without obstruction; I13.2 Hypertensive heart and chronic kidney disease with heart failure and with stage 5 chronic kidney disease, or end stage renal disease; Z68.41 Body mass index [BMI] 40.0-44.9, adult; I50.42 Chronic combined systolic (congestive) and diastolic (congestive) heart failure; I42.9 Cardiomyopathy, unspecified; E11.22 Type 2 diabetes mellitus with diabetic chronic kidney disease; E11.65 Type 2 diabetes mellitus with hyperglycemia; D63.1 Anemia in chronic kidney disease; I25.10 Atherosclerotic heart disease of native coronary artery without angina pectoris; F41.8 Other specified anxiety disorders; E87.5 Hyperkalemia; E11.42 Type 2 diabetes mellitus with diabetic polyneuropathy; E11.21 Type 2 diabetes mellitus with diabetic nephropathy; N18.30 Chronic kidney disease, stage 3 unspecified; Z99.2 Dependence on renal dialysis; Z79.4 Long term (current) use of insulin; Z89.522 Acquired absence of left knee; Z89.521 Acquired absence of right knee; Z95.1 Presence of aortocoronary bypass graft; Z89.422 Acquired absence of other left toe(s); E66.9 Obesity, unspecified
CPT/HCPCS: 36415; 71045; 74176; 76705; 80048; 80053; 80069; 82948; 83605; 83690; 84132; 85025; 87340; 93005; 96374; 96375; 99285; A9270; G0257; G0378; J0612; J1644; J1815; J2405; J7030; Q5105

== ENCOUNTER 2023-02-07 03:02 | Observation (INO) | payer OTHER, SELFPAY ==
[2023-02-07] VITALS (68 sets, daily range): BP systolic 130–169; BP diastolic 61–89; PULSE 44–75; RESP 12–23; TEMP 36–37; O2SAT 90–100
--- NOTE | ~2023-02-07 | XR_ITS ---
Portable chest x-ray Comparison: 01/12/2023 Clinical History: Shortness of breath Findings: Small right pleural effusion with right basilar consolidation is present, mildly worsened from prior exam. Probable minimal central congestive changes. Cardiomediastinal silhouette is stable . Bones and soft tissues are unremarkable. Impression: Small right pleural effusion with more extensive right basilar consolidation. Correlate for pulmonary edema/atelectasis versus pneumonia. Mild central congestive changes. Reviewed, dictated and finalized at location . Impression: Small right pleural effusion with more extensive right basilar consolidation. C orrelate for pulmonary edema/atelectasis versus pneumonia. Mild central congestive changes.
--- NOTE | ~2023-02-07 | XR_ITS ---
XR chest 1V portable 02/10/2023 12:40 Indication: Shortness of breath Procedure: AP portable chest Comparison: 02/07/2023 Findings: Status post median sternotomy for CABG. Cardiomegaly. Mild interstitial edema. Small right effusion. No pneumothorax. Healed left clavicular fracture. Impression: 1: Cardiomegaly with mild interstitial edema. 2: Small right pleural effusion. Reviewed, dictated and finalized at location A. Impression: 1: Cardiomegaly with mild interstitial edema. 2: Small right pleural effusion.
--- NOTE | ~2023-02-07 | CT_ITS ---
CT of the Abdomen and Pelvis: Indication: Abdominal pain Technique: 2.5 mm axial scans were obtained through the abdomen and pelvis following intravenous adm inistration of 100 cc of Omnipaque 350. Dose reduction technique was used on this scan by utilizing a utomated exposure control and iterative reconstruction technique. The dose-length product (DLP) was 1 587.70 mGy-cm. COMPARISON: 01/12/2023 Findings: Scans through the lung bases demonstrate moderate right pleural effusion, possibly partial ly loculated, with right basilar atelectasis. Minimal left pleural effusion present with left basilar atelectatic change.. The liver, spleen, pancreas, adrenals and kidneys are within normal limits. Small gallstone present. There are atherosclerotic calcifications of the aorta. No lymphadenopathy. No bowel obstruction or bowel wall thickening. There is no evidence to suggest acute appendicitis. Sm all fat-containing umbilical hernia noted. Images through the pelvis were performed. There is probable mild diffuse urinary bladder wall thicken ing. Prostate gland and seminal vesicles are unremarkable. Small amount of pelvic ascites noted. Bila teral L5 pars interarticularis defects are present, with 5 mm anterolisthesis of L5 over S1. Impression: Urinary bladder wall thickening. Correlate for cystitis. Moderate right pleural effusion and minimal left pleural effusion, with bibasilar atelectatic change, as detailed above. Small amount of pelvic ascites. Cholelithiasis. Small fat-containing umbilical hernia. Reviewed, dictated and finalized at [facility]. Impression: Urinary bladder wall thickening. Correlate for cystitis. Moderate right pleural effusion and minimal left pleural effusion, with bibasil ar atelectatic change, as detailed above. Small amount of pelvic ascites. Cholelithiasis. Small fat-containing umbilical hernia.
[2023-02-07 03:27] LABS: Basophils Absolute Auto 0.1 K/mm3 (0.0-0.1); Basophils Percent Auto 0.8 % (0.2-1.2); Eosinophils Absolute Auto 0.2 K/mm3 (0-0.3); Eosinophils Percent Auto 2.5 % (0-4.4); Hematocrit 32.8 % (42.0-52.0); Hemoglobin 10.4 g/dL (14.0-18.0); Immature Granulocyte Absolute 0.02 K/mm3 (0.00-0.031); Immature Granulocyte Percent A 0.3 % (0-0.5); Lymphocytes Absolute Auto 0.71 K/mm3 (0.9-3.2); Lymphocytes Percent Auto 9.4 % (18.3-44.2); Mean Corpuscular HGB Conc 31.7 g/dl (32-36); Mean Corpuscular Hemoglobin 32.3 pg (26-34); Mean Corpuscular Volume 101.9 fl (80-100); Mean Platelet Volume 11.4 fl (7.4-10.4); Monocytes Absolute Auto 0.8 K/mm3 (0.1-0.6); Monocytes Percent Auto 10.1 % (2.6-8.5); Neutrophils Absolute Auto 5.8 K/mm3 (1.3-6.7); Neutrophils Percent Auto 76.9 % (45.5-73.1); Platelet Count Result 143 k/mm3 (150-375); Red Blood Count 3.22 M/mm3 (4.6-6.20); Red Cell Distribution Width 15.5 % (11.5-14.5); White Blood Count 7.6 K/mm3 (4.5-10.0)
--- NOTE | 2023-02-07 03:40 | ECG_ITS ---
Measurements Intervals [place] Rate: 54 P: CT: 0 QRS: 3 QRSD: 131 T: 145 QT: 499 QTc: 476 Interpretive Statements SINUS BRADYCARDIA WITH MARKED FIRST DEGREE AV BLOCK INTRAVENTRICULAR CONDUCTION DELAY [130+ ms QRS DURATION] COMPARED TO ECG 01/13/2023 00:34:50 NO SIGNIFICANT CHANGES Electronically Signed On 02-07-2023 10:55:04 CDT by Chuck Manzano M.D.
[2023-02-07 03:50] LABS: Alanine Aminotransferase 26 U/L (6-50); Alkaline Phosphatase 158 U/L (38-126); Anion Gap 18 mmol/L (8-16); Aspartate Amino Transferase 39 U/L (17-59); Bilirubin,Total 0.7 mg/dL (0.2-1.3); Blood Urea Nitrogen > 120 mg/dL (9-20); Calcium 8.7 mg/dL (8.4-10.2); Carbon Dioxide 24 mmol/L (22-30); Chloride 99 mmol/L (98-107); Estimated CRCL calculation 9 ml/min; Estimated Glomerular Filt Rate 6; Glucose 137 mg/dL (65-110); Lipase 105 U/L (23-300); Potassium 6.4 mmol/L (3.4-5.0); Sodium 141 mmol/L (137-145)
[2023-02-07] MEDS: CALCIUM GLUCONATE 1,000 MG/10 ML VIAL 2000 MG IV PUSH (06:18)
--- NOTE | 2023-02-07 06:22 | ED.GENADULT ---
HPI - General Adult General Chief complaint: Nausea/Vomiting/Diarrhea <Palmer Larson MD - Last Filed: 02/07/23 07:10> Stated complaint: dyspnea <Palmer Larson MD - Last Filed: 02/07/23 07:10> Time Seen by Provider: 02/07/23 03:47 <Palmer Larson MD - Last Filed: 02/07/23 07:10> History of Present Illness HPI narrative: This is a 57-year-old male with history of end-stage renal disease presenting ED with a chief complaint of Abdominal pain, nausea vomiting. Patient also has shortness of breath. The abdominal pain started 3 or 4 days ago and is located around his bellybutton, is a crampy pain that is nonradiating 7 out 10 intensity and constant. He has never had this before there are no exacerbating alleviating factors. It is associated with diarrhea. The patient had too much diarrhea to go to dialysis Saturday and not worse he has not received since his full session on Saturday. Patient is also complaining of shortness of breath. He has no fevers productive cough or chest pain. Chemical Processor is Dr. Almodovar. <Palmer Larson MD - Last Filed: 02/07/23 07:10> Related Data Home medications: Home Medications Medication Instructions Recorded Confirmed aspirin 81 mg tablet,delayed 81 mg PO DAILY 06/01/20 01/13/23 release cholecalciferol (vitamin D3) 50 50 mcg PO DAILY 06/01/20 01/13/23 mcg (2,000 unit) tablet (Vitamin D3) ferrous sulfate 325 mg (65 mg 325 mg PO DAILY 06/01/20 01/13/23 iron) tablet insulin glargine 100 unit/mL 8 unit subcut HS 06/01/20 01/13/23 subcutaneous solution (Lantus U-100 Insulin) multivitamin 1 tablet PO DAILY 06/01/20 01/13/23 nitroglycerin 0.4 mg sublingual 0.4 mg sublingual Q5-15M PRN Chest 06/01/20 01/13/23 tablet Pain omega-3 fatty acids-fish oil 360 1 cap PO DAILY 06/01/20 01/13/23 mg-1,200 mg capsule atorvastatin 40 mg tablet (Lipitor) 40 mg PO DAILY 12/23/20 01/13/23 bisacodyl 10 mg rectal suppository 10 mg RECTAL DAILY PRN Constipation 12/23/20 01/13/23 collagenase clostridium histo. 250 1 applic topical DAILY 12/23/20 01/13/23 unit/gram topical ointment cyclobenzaprine 5 mg tablet 5 mg PO TID PRN Spasms 12/23/20 01/13/23 daptomycin 500 mg intravenous 850 mg IV QTUTHSA 12/23/20 01/13/23 solution folic acid 1 mg tablet 1 mg PO DAILY 12/23/20 01/13/23 gabapentin 100 mg tablet 200 mg PO HS 12/23/20 01/13/23 hydralazine 100 mg tablet 100 mg PO TID PRN Hypertension 12/23/20 01/13/23 magnesium citrate (Citroma oral 150 ml PO DAILY PRN Constipation 12/23/20 01/13/23 solution) magnesium hydroxide 400 mg/5 mL 400 mg PO DAILY PRN Constipation 12/23/20 01/13/23 oral suspension (Milk of Magnfor[MD]) metoprolol tartrate 25 mg tablet 12.5 mg PO DAILY 12/23/20 01/13/23 sevelamer carbonate 800 mg tablet 1,600 mg PO TID 12/23/20 01/13/23 tamsulosin 0.4 mg capsule (Flomax) 0.4 mg PO DAILY 12/23/20 01/13/23 fenofibrate nanocrystallized 48 mg 48 mg PO DAILY 01/13/23 01/13/23 tablet furosemide 20 mg tablet 20 mg PO DAILY 01/13/23 01/13/23 isosorbide dinitrate 20 mg tablet 20 mg PO TID 01/13/23 01/13/23 linagliptin 5 mg tablet (Tradjenta) 5 mg PO DAILY 01/13/23 01/13/23 mirtazapine 15 mg tablet 15 mg PO HS 01/13/23 01/13/23 sennosides 8.6 mg tablet 8.6 mg PO HS 01/13/23 01/13/23 sertraline 100 mg tablet 100 mg PO DAILY 01/13/23 01/13/23 sertraline 50 mg tablet 50 mg PO DAILY 01/13/23 01/13/23 <Palmer Larson MD - Last Filed: 02/07/23 07:10> Allergies/adverse reactions: Allergies Allergy/AdvReac Type Severity Reaction Status Date / Time Penicillins Allergy Unknown Unknown Verified 02/07/23 08:56 bee venom protein (honey bee) Allergy Swelling Verified 02/07/23 08:56 <Palmer Larson MD - Last Filed: 02/07/23 07:10> [facility] Past Medical History Medical History: Medical History Acute on chronic blood loss anemia Acute on chronic combined systolic and diastolic ACC/AHA stage C con
[2023-02-07 06:26] LABS: Glucose Point of Care 146 mg/dl (65-105)
[2023-02-07] MEDS: DEXTROSE 50% 25 GM/50 ML SYRINGE IV PUSH (06:28)
[2023-02-07] MEDS: INSULIN HUMAN REGULAR (*BKC) 100 UNITS/ML 10 UNITS IV PUSH (06:29)
[2023-02-07] MEDS: SODIUM ZIRCONIUM CYCLOSILICATE 10 GM POWD.PACK PO (06:34)
[2023-02-07] MEDS: HYDROmorphone HCL INJ (*CRX) 1 MG/ML SYR 0.5 MG IV PUSH (07:37)
[2023-02-07] MEDS: FUROSEMIDE INJ 100 MG/10 ML VIAL 80 MG IV PUSH (07:38)
[2023-02-07 08:16] LABS: Influenza A QL RT-PCR Negative (Negative); Influenza B QL RT-PCR Negative (Negative); RSV RNA, RT-PCR Negative (Negative); SARS-CoV-2 RNA PCR Negative (Negative)
[2023-02-07 08:24] LABS: Hepatitis B Surface Antigen Negative (Negative)
[2023-02-07 09:21] LABS: Hepatitis B Surface Anti Res Negative
--- NOTE | 2023-02-07 09:40 | PC.NURSE ---
To dialysis per stretcher.
[2023-02-07] MEDS: EPOETIN ALFA-EPBX 4,000 UNITS/ML VIAL 4000 UNITS IV PUSH (11:35)
--- NOTE | 2023-02-07 12:25 | PM.IMHP ---
H&P: HPI History of Present Illness Date/Time: 02/07/23 12:25 Chief Complaint: Nausea vomiting diarrhea Narrative: this is a 57-year-old male patient who has end-stage renal disease any has dialysis on Saturday. The patient came to the emergency room with complaints of abdominal pain nausea vomiting and shortness of breath. His abdominal pain started approximately 3-4 days ago it is located around his umbilicus area. He stated that is crampy pain and it is nonradiating in his pain level 7 the 10 in intensity and constant. The patient stated that he had too much diarrhea to go to dialysis on Saturday and he did not receive his full dose on Saturday. He has no fevers chills niece stated that the diarrhea has slowed down. H&H is 10.4 And 32.8 platelets 143. potassium 6.4. Anion gap 18 BUN greater than 120 creatinine 9.3. he was negative for influenza a B RSV and COVID. Nephrology was consulted. And the patient was taken directly to hemodialysis. the patient was given IV fluids, regular insulin, he in hydromorphone, Lasix, Epogen, D50, calcium gluconate, zirconium,and albumin. The patient is somnolent. the patient is being admitted to observation status on the date of service of 02/07/2023 Review of Systems Review of Systems: All systems reviewed & are unremarkable except as noted in HPI and below Constitutional: Constitutional: Reports as per HPI and Reports no additional constitutional complaints Eyes: Eyes: Reports as per HPI and Reports no additional eye complaints ENT: Reports system reviewed and no additional complaints, except as documented and Reports Normal hearing present Cardiovascular: Cardiovascular: Reports no additional cardiovascular complaints Respiratory: Respiratory: Reports no additional respiratory complaints and Reports no additional respiratory complaints Gastrointestinal: Gastrointestinal: Reports as per HPI and Reports no additional gastrointestinal complaints Musculoskeletal: Musculoskeletal: Reports no additional musculoskeletal complaints Integumentary/Breasts: Skin/Breast: Reports system reviewed and no additional complaints, except as docu and Reports as per HPI Neurologic: Reports system reviewed and no additional complaints, except as documented, Reports as per HPI and Reports Normal hearing present Psychiatric: Psychiatric: Reports no additional psychiatric complaints and Reports as per HPI Endocrine: Endocrine: Reports no additional endocrine complaints Hematologic/Lymphatic: Hematologic/Lymphatic: Reports no additional hematologic/lymphatic complaints Allergic/Immunologic: Allergic/Immunologic: Reports no additional allergic/immunologic complaints [facility] Past Medical History Medical History (Updated 02/07/23 @ 14:43 by Stephanie Mcclain NP) Acute on chronic blood loss anemia 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 heart failure Last echo 06/06/2020 EF approximately 35-40% and diastolic dysfunction NATAN (acute kidney injury) Anemia Anemia of chronic disease Anxiety and depression Arthritis Below knee amputation Below-knee amputation of left lower extremity with complication CAD (coronary artery disease) CABG x4 2017, Lexiscan stress test January 2020 moderate sized mild partially reversible perfusion defect involving inferior wall consistent with mixed ischemia and infarct, large severe partially reversible perfusion defect involving the anterior lateral and inferior lateral wall consistent with mixed ischemia infarct, small mild partially reversible freezing defect involving left ventricular apex and mid anterior segment consistent with mix ischemia and infarct with EF of 29% Cardiac arrhythmia Went into Afib after CABG 2018 Cataract Right cataract pending surgery Diabetes Hemoglobin A1c of 11.03 Jan 2020 Diabetic nephropathy Diabetic neuropathy Diabetic peripheral neuropathy Elevated lipids ESRD (end stage renal disease) History of amp
--- NOTE | 2023-02-07 12:55 | PM.CNNEP ---
Assessment and Plan Assessment and plan (1) ESRD (end stage renal disease): Code(s): N18.6 - End stage renal disease Status: Chronic Assessment and Plan: HD today since missed a dialysis treatment this week, will plan HD tomorrow as well resume T/T/S schedule while hospitalized follow electrolytes, volume status, and clearance (2) Hyperkalemia: Code(s): E87.5 - Hyperkalemia Status: Acute Assessment and Plan: s/p medical management in ER dialysis should help further correct this follow repeat K+ levels (3) Chronic diarrhea: Code(s): K52.9 - Noninfective gastroenteritis and colitis, unspecified Status: Chronic Assessment and Plan: viral etiology? stool culture in progress supportive therapy (4) Anemia: Code(s): D64.9 - Anemia, unspecified Status: Chronic Assessment and Plan: due to ESRD and possibly worsened by acute illness Epogen with HD follow trend of H/H (5) Diabetes mellitus with multiple complications: Code(s): E11.8 - Type 2 diabetes mellitus with unspecified complications Status: Acute Assessment and Plan: follow Accu-Cheks glycemic control per hospitalists I will continue to follow patient with you while he remains hospitalized and make further recommendations as deemed necessary. Thank you for allowing me to participate in care this patient. History of Present Illness Reason for Consult Consult date: 02/07/23 Reason for consult: end stage renal disease Chief Complaint Chief complaint: Dialysis Patient,CHF,Hyperkalemia History of Present Illness Narrative: The patient is a 57-year-old male with a past medical history as outlined below who presented to [facility] Emergency room with complaints of abdominal pain in association with nausea, vomiting, diarrhea as well as shortness of breath. The patient states that his abdominal pain started about three or four days ago. The pain was localized around his umbilical area and he described the pain as a crampy sensation with no radiation. At its worse, it was rated 7/10 intensity. Following the symptoms of abdominal pain, that he started having issues and problems with nausea vomiting and diarrhea. He denies any overt fevers, chills, chest pain, palpitations, or dizziness. As the symptoms seem to be progressing and not improving, he presented to the ER for further assessment. Workup and evaluation in the emergency room demonstrated the patient to be hemodynamically stable but in mild distress secondary to his abdominal pain and shortness of breath. Routine blood test demonstrated labs consistent with his known history of end-stage renal disease although he was noted to be hyperkalemia and his BUN was greater than 120. CBC was significant for anemia of chronic kidney disease. Testing for influenza, RSV, COVID-19 were negative. He received medical management for his hyperkalemia and he subsequently had a CT scan of his abdomen pelvis which did not demonstrate any acute intra-abdominal pathology. He was subsequently admitted to the hospital for further evaluation and therapy. Renal consultation was requested due to his end-stage renal disease. The patient normally receives dialysis on a Saturday, , Saturday schedule at [place] to [facility] under the care of Dr. Jimmie Almodovar. He did receive dialysis on Saturday but apparently missed his treatment on Saturday due to his GI symptoms, more specifically, his diarrhea. For the most part, he has been doing reasonably well with dialysis in general. Currently, at the time of my visit, the patient is receiving dialysis in effort to treat his hyperkalemia and mild fluid overload ( he was seen on dialysis around 12:45 p.m.). He appears to be tolerating the treatment reasonably well. Review of Systems Review of Systems: As per HPI. [facility] Past Medical History Medical Hist
--- NOTE | 2023-02-07 14:46 | ADMGEN ---
This patient, Kobi Salter, was admitted to Medical Room 252-. Patient/family oriented to hospital policies and general routines including ID bracelet, bed and alarms, visiting hours, pain management, procedures, bathroom and other care routines, personal items, smoking policy, room service/diet, and visiting hours. Information on how to activate the Rapid Response Team has been discussed. Patient/Family are encouraged to report perceived risks to care and to ask questions if they do not understand what they are told or what they should do.
[2023-02-07 15:28] LABS: Anion Gap 13 mmol/L (8-16); Blood Urea Nitrogen 63 mg/dL (9-20); Calcium 8.7 mg/dL (8.4-10.2); Carbon Dioxide 29 mmol/L (22-30); Chloride 99 mmol/L (98-107); Estimated CRCL calculation 16 ml/min; Estimated Glomerular Filt Rate 12; Glucose 77 mg/dL (65-110); Potassium 4.4 mmol/L (3.4-5.0); Sodium 141 mmol/L (137-145)
[2023-02-07 16:55] LABS: Glucose Point of Care 81 mg/dl (65-105)
[2023-02-07 21:11] LABS: Glucose Point of Care 181 mg/dl (65-105)
[2023-02-07] MEDS: ATORVASTATIN 40 MG TABLET PO (21:59)
[2023-02-07] MEDS: GABAPENTIN 100 MG CAPSULE 200 MG PO (22:00)
[2023-02-07] MEDS: MIRTAZAPINE 15 MG TABLET PO (22:00)
[2023-02-07] MEDS: INSULIN GLARGINE (*BKC) 100 UNITS/ML 8 UNITS SUB-Q (22:00)
[2023-02-08] VITALS (24 sets, daily range): BP systolic 126–168; BP diastolic 47–89; PULSE 62–85; RESP 16–21; TEMP 36–37; O2SAT 95–100
[2023-02-08 05:20] LABS: Basophils Percent Auto 0.3 % (0.2-1.2); Eosinophils Absolute Auto 0.2 K/mm3 (0-0.3); Eosinophils Percent Auto 3.5 % (0-4.4); Hematocrit 31.8 % (42.0-52.0); Hemoglobin 9.9 g/dL (14.0-18.0); Immature Granulocyte Absolute 0.02 K/mm3 (0.00-0.031); Immature Granulocyte Percent A 0.3 % (0-0.5); Lymphocytes Absolute Auto 0.45 K/mm3 (0.9-3.2); Lymphocytes Percent Auto 7.4 % (18.3-44.2); Mean Corpuscular HGB Conc 31.1 g/dl (32-36); Mean Corpuscular Hemoglobin 31.5 pg (26-34); Mean Corpuscular Volume 101.3 fl (80-100); Mean Platelet Volume 12.2 fl (7.4-10.4); Monocytes Absolute Auto 0.6 K/mm3 (0.1-0.6); Monocytes Percent Auto 10.4 % (2.6-8.5); Neutrophils Absolute Auto 4.7 K/mm3 (1.3-6.7); Neutrophils Percent Auto 78.1 % (45.5-73.1); Platelet Count Result 106 k/mm3 (150-375); Red Blood Count 3.14 M/mm3 (4.6-6.20); Red Cell Distribution Width 15.4 % (11.5-14.5); White Blood Count 6.1 K/mm3 (4.5-10.0)
[2023-02-08 05:32] LABS: Lactic Acid Reflex 0.8 mmol/L (0.7-2.0)
[2023-02-08 05:45] LABS: Alanine Aminotransferase 29 U/L (6-50); Albumin Level 3.8 g/dL (3.5-5.1); Alkaline Phosphatase 112 U/L (38-126); Anion Gap 11 mmol/L (8-16); Aspartate Amino Transferase 47 U/L (17-59); Bilirubin,Total 0.9 mg/dL (0.2-1.3); Blood Urea Nitrogen 72 mg/dL (9-20); Calcium 8.4 mg/dL (8.4-10.2); Carbon Dioxide 31 mmol/L (22-30); Chloride 99 mmol/L (98-107); Estimated CRCL calculation 12 ml/min; Estimated Glomerular Filt Rate 9; Glucose 86 mg/dL (65-110); Magnesium 2.1 mg/dL (1.6-2.3); Phosphorus 6.5 mg/dL (2.5-4.5); Sodium 141 mmol/L (137-145)
[2023-02-08 05:51] LABS: Hemoglobin A1C 5.2 % (<5.7)
[2023-02-08 08:21] LABS: Glucose Point of Care 76 mg/dl (65-105)
[2023-02-08] MEDS: FUROSEMIDE 20 MG TABLET PO (09:34)
[2023-02-08] MEDS: METOPROLOL TARTRATE 12.5 MG TABLET PO (09:34)
[2023-02-08] MEDS: CHOLECALCIFEROL 1,000 UNITS TABLET 2000 UNITS PO (09:34)
[2023-02-08] MEDS: TAMSULOSIN HCL 0.4 MG CAPSULE PO (09:34)
[2023-02-08] MEDS: OMEGA 3 POLYUNSAT FATTY ACIDS 1 GM CAP PO (09:34)
[2023-02-08] MEDS: FERROUS SULFATE 324 MG TABLET PO (09:34)
[2023-02-08] MEDS: ASPIRIN 81 MG ENTERIC TABLET PO (09:34)
[2023-02-08] MEDS: SERTRALINE HCL 50 MG TABLET PO (09:34)
[2023-02-08] MEDS: FENOFIBRATE,MICRONIZED 48 MG TABLET PO (09:34)
[2023-02-08] MEDS: SEVELAMER CARBONATE 800 MG TABLET 1600 MG PO ×3 (09:34→17:42)
[2023-02-08] MEDS: FOLIC ACID 1 MG TABLET PO (09:34)
[2023-02-08] MEDS: ISOSORBIDE DINITRATE 20 MG TABLET PO ×3 (09:34→17:42)
[2023-02-08] MEDS: SERTRALINE HCL 50 MG TABLET 100 MG PO (09:34)
--- NOTE | 2023-02-08 10:31 | PM.PNNEP ---
Progress Note: A&P Assessment and Plan (1) ESRD (end stage renal disease): Code(s): N18.6 - End stage renal disease Status: Chronic Assessment and Plan: HD is underway since missed a dialysis treatment this week. He missed it because of diarrhea. He has been plagued with intermittent diarrhea for months. The diarrhea is better now. Will do another treatment tomorrow to get him back on schedule. Volume status looks pretty good. And have much swelling. Chest x-ray did show some congestion but he has had 2 dialysis treatments since then. (2) Hyperkalemia: Code(s): E87.5 - Hyperkalemia Status: Acute Assessment and Plan: Resolved with dialysis (3) Chronic diarrhea: Code(s): K52.9 - Noninfective gastroenteritis and colitis, unspecified Status: Chronic Assessment and Plan: viral etiology? stool culture in progress supportive therapy (4) Anemia: Code(s): D64.9 - Anemia, unspecified Status: Chronic Assessment and Plan: due to ESRD and possibly worsened by acute illness Epogen with HD check another CBC tomorrow (5) Diabetes mellitus with multiple complications: Code(s): E11.8 - Type 2 diabetes mellitus with unspecified complications Status: Acute Assessment and Plan: follow Accu-Cheks glycemic control per hospitalists Subjective Date/time seen: 02/08/23 10:31 Interval history: Patient is on dialysis and tolerating it well. He was seen at 9:30 a.m.. His blood pressure seems to be doing pretty well. We are removing fluid as tolerated. He is eating some breakfast. Has to chew his food very much to be able to swallow it. He has had a swallowing difficulty for many years. Review of Systems Cardiovascular: Cardiovascular: Reports no additional cardiovascular complaints Respiratory: Respiratory: Reports no additional respiratory complaints Gastrointestinal: Gastrointestinal: Reports no additional gastrointestinal complaints Genitourinary: Genitourinary: Reports no additional male genitourinary complaints Exam Narrative: WDWN in NAD skin no rash head ncat lungs clear bilaterally cor reg no rub abd BS+ nontender and soft ext no edema. Objective Data Vital Signs Vital Signs: Vital Signs - 24 hr 02/07/23 10:40 02/07/23 11:00 02/07/23 11:20 Temperature Pulse Rate 61 59 L 60 Respiratory Rate Blood Pressure 138/70 142/74 H 135/72 Pulse Oximetry Oxygen Delivery Oxygen Flow Rate 02/07/23 11:40 02/07/23 12:00 02/07/23 12:20 Temperature Pulse Rate 59 L 56 L 63 Respiratory Rate Blood Pressure 144/75 H 146/73 H 153/80 H Pulse Oximetry Oxygen Delivery Oxygen Flow Rate 02/07/23 12:40 02/07/23 13:00 02/07/23 13:20 Temperature Pulse Rate 63 66 63 Respiratory Rate Blood Pressure 151/73 H 149/75 H 141/65 H Pulse Oximetry Oxygen Delivery Oxygen Flow Rate 02/07/23 13:32 02/07/23 14:00 02/07/23 15:55 Temperature 98.0 F 96.9 F L Pulse Rate 63 60 74 Respiratory Rate 20 22 H Blood Pressure 152/74 H 142/72 H 153/78 H Pulse Oximetry 93 99 Oxygen Delivery Oxygen Flow Rate 02/07/23 17:38 02/07/23 16:00 02/07/23 20:36 Temperature 97.2 F L Pulse Rate 74 75 70 Respiratory Rate 22 H 16 Blood Pressure 148/61 H Pulse Oximetry 99 94 Oxygen Delivery Nasal Cannula Oxygen Flow Rate 2 02/07/23 20:36 02/07/23 22:00 02/08/23 00:45 Temperature 97.2 F L 97.3 F L Pulse Rate 70 62 Respiratory Rate 16 21 H Blood Pressure 148/61 H 138/66 Pulse Oximetry 94 100 Oxygen Delivery Nasal Cannula Oxygen Flow Rate 2 02/07/23 20:00 02/08/23 00:00 02/08/23 04:00 Temperature Pulse Rate 69 67 62 Respiratory Rate Blood Pressure Pulse Oximetry Oxygen Delivery Oxygen Flow Rate 02/07/23 22:07 02/08/23 05:00 02/08/23 08:15 Temperature 98.0 F Pulse Rate 64 Respira
[2023-02-08] MEDS: ONDANSETRON INJ 4 MG/2 ML VIAL IV PUSH (10:42)
[2023-02-08] MEDS: EPOETIN ALFA-EPBX 4,000 UNITS/ML VIAL 4000 UNITS IV PUSH (11:30)
[2023-02-08 12:44] LABS: Glucose Point of Care 80 mg/dl (65-105)
--- NOTE | 2023-02-08 13:04 | PM.IMPN ---
Progress Note: A&P Assessment and Plan (1) CKD (chronic kidney disease) stage 3, GFR 30-59 ml/min: Code(s): N18.3 - Chronic kidney disease, stage 3 (moderate) Status: Chronic Assessment and Plan: The patient missed this past Saturday and only had a partial on Saturday. He is on a Saturday, , Saturday schedule. The patient is currently in dialysis. The patient's potassium was up to 6.4. The patient was given a concoction in the emergency room. Nephrology is following could alongside does. The patient was given Epoetin. The patient rarely makes urine. He was given Lasix today. Patient got dialysis on 02/07/2023, 02/08/2023 and is planned for 02/09/2023. He should be back on schedule after this. (2) Chronic diarrhea: Code(s): K52.9 - Noninfective gastroenteritis and colitis, unspecified Status: Chronic Assessment and Plan: The patient stated that he has had diarrhea for months and that is why he missed dialysis will check stool cultures. .Magnesium 2.1 Stool studies ordered C diff not performed due to patient's stool being formed Blood negative (3) Hyperkalemia: Code(s): E87.5 - Hyperkalemia Status: Resolved Assessment and Plan: The patient was given a concoction in the emergency room. The patient had missed his last dialysis and only had a portion of dialysis on Saturday. He is currently receiving hemodialysis. Potassium returned to normal after hemodialysis. (4) Diabetic neuropathy: Code(s): E11.40 - Type 2 diabetes mellitus with diabetic neuropathy, unspecified Status: Chronic Assessment and Plan: Continue with mirtazapine (5) Diabetes mellitus with multiple complications: Code(s): E11.8 - Type 2 diabetes mellitus with unspecified complications Status: Chronic Assessment and Plan: Accu-Cheks AC and HS with sliding scale insulin. Check A1c. Continue with Tradjenta if formulary. (6) Anemia: Code(s): D64.9 - Anemia, unspecified Status: Chronic Assessment and Plan: The patient was given Epogen. Continue to monitor the patient. (7) CHF (congestive heart failure): Code(s): I50.9 - Heart failure, unspecified Status: Chronic Assessment and Plan: Continue with metoprolol, Subjective Date/time seen: 02/08/23 13:04 Interval history: Patient feeling much better today has not diarrhea since he has been in the hospital. he was getting dialysis when I spoke with him. He denies any nausea, vomiting, dizziness, chest pain shortness a breath. He states that he was having some abdominal swelling but it appears that that too has resolved. Patient is planned to get 1 more round of dialysis tomorrow to get him back on schedule. Hopefully patient can be discharged tomorrow. Review of Systems Review of Systems: All systems reviewed & are unremarkable except as noted in HPI and below Exam Narrative: GENERAL: Comfortable, no acute distress HENMT: moist mucous membranes EYES: EOM intact b/l NECK: no lymphadenopathy RESPIRATORY: clear to auscultation CARDIO: RRR GI: soft, nontender, bowel sounds present SKIN: no rashes EXTREMITIES: Bilateral lower extremity below the knee amputation; no edema Objective Data Vital Signs Vital Signs: Vital Signs - 24 hr 02/07/23 13:20 02/07/23 13:32 02/07/23 14:00 Temperature 98.0 F Pulse Rate 63 63 60 Respiratory Rate 20 Blood Pressure 141/65 H 152/74 H 142/72 H Pulse Oximetry 93 Oxygen Delivery Oxygen Flow Rate 02/07/23 15:55 02/07/23 17:38 02/07/23 16:00 Temperature 96.9 F L Pulse Rate 74 74 75 Respiratory Rate 22 H 22 H Blood Pressure 153/78 H Pulse Oximetry 99 99 Oxygen Delivery Nasal Cannula Oxygen Flow Rate 2 02/07/23 20:36 02/07/23 20:36 02/07/23 22:00 Temperature 97.2 F L 97.2 F L Pulse Rate 70 70 Respiratory Rate 16 16 Blood Pressure 148/
[2023-02-08] MEDS: COLLAGENASE OINT 30 GM TUBE 1 APPLIC TOPICAL (13:09)
[2023-02-08] MEDS: MULTIVITAMINS THERAPEUTIC TAB (*BKC) 1 TABLET PO (13:10)
[2023-02-08 17:25] LABS: Glucose Point of Care 140 mg/dl (65-105)
[2023-02-08] MEDS: ATORVASTATIN 40 MG TABLET PO (21:45)
[2023-02-08] MEDS: SENNOSIDES 8.6 MG TABLET PO (21:45)
[2023-02-08] MEDS: MIRTAZAPINE 15 MG TABLET PO (21:45)
[2023-02-08] MEDS: GABAPENTIN 100 MG CAPSULE 200 MG PO (21:45)
[2023-02-08] MEDS: INSULIN GLARGINE (*BKC) 100 UNITS/ML 8 UNITS SUB-Q (22:05)
[2023-02-09] VITALS (27 sets, daily range): BP systolic 121–150; BP diastolic 51–75; PULSE 61–74; RESP 12–17; TEMP 36–36.9; O2SAT 92–100
[2023-02-09] LABS: Glucose Point of Care 156 mg/dl (65-105)
[2023-02-09 06:26] LABS: Basophils Percent Auto 0.3 % (0.2-1.2); Eosinophils Absolute Auto 0.2 K/mm3 (0-0.3); Hematocrit 31.3 % (42.0-52.0); Hemoglobin 9.6 g/dL (14.0-18.0); Immature Granulocyte Absolute 0.02 K/mm3 (0.00-0.031); Immature Granulocyte Percent A 0.3 % (0-0.5); Lymphocytes Absolute Auto 0.58 K/mm3 (0.9-3.2); Lymphocytes Percent Auto 9.2 % (18.3-44.2); Mean Corpuscular HGB Conc 30.7 g/dl (32-36); Mean Corpuscular Hemoglobin 31.6 pg (26-34); Mean Platelet Volume 12.1 fl (7.4-10.4); Monocytes Absolute Auto 0.9 K/mm3 (0.1-0.6); Monocytes Percent Auto 14.3 % (2.6-8.5); Neutrophils Absolute Auto 4.6 K/mm3 (1.3-6.7); Neutrophils Percent Auto 72.9 % (45.5-73.1); Platelet Count Result 117 k/mm3 (150-375); Red Blood Count 3.04 M/mm3 (4.6-6.20); Red Cell Distribution Width 15.4 % (11.5-14.5); White Blood Count 6.3 K/mm3 (4.5-10.0)
[2023-02-09 06:39] LABS: Alanine Aminotransferase 25 U/L (6-50); Albumin Level 3.7 g/dL (3.5-5.1); Alkaline Phosphatase 105 U/L (38-126); Anion Gap 7 mmol/L (8-16); Aspartate Amino Transferase 38 U/L (17-59); Bilirubin,Total 0.8 mg/dL (0.2-1.3); Blood Urea Nitrogen 49 mg/dL (9-20); Calcium 8.3 mg/dL (8.4-10.2); Carbon Dioxide 34 mmol/L (22-30); Chloride 99 mmol/L (98-107); Estimated CRCL calculation 17 ml/min; Estimated Glomerular Filt Rate 12; Glucose 93 mg/dL (65-110); Potassium 4.6 mmol/L (3.4-5.0); Sodium 140 mmol/L (137-145)
[2023-02-09 07:59] LABS: Glucose Point of Care 88 mg/dl (65-105)
[2023-02-09] MEDS: COLLAGENASE OINT 30 GM TUBE 1 APPLIC TOPICAL (08:46)
[2023-02-09] MEDS: CHOLECALCIFEROL 1,000 UNITS TABLET 2000 UNITS PO (08:46)
[2023-02-09] MEDS: OMEGA 3 POLYUNSAT FATTY ACIDS 1 GM CAP PO (08:46)
[2023-02-09] MEDS: ASPIRIN 81 MG ENTERIC TABLET PO (08:46)
[2023-02-09] MEDS: FERROUS SULFATE 324 MG TABLET PO (08:46)
[2023-02-09] MEDS: SERTRALINE HCL 50 MG TABLET 100 MG PO (08:46)
[2023-02-09] MEDS: ISOSORBIDE DINITRATE 20 MG TABLET PO ×3 (08:46→20:40)
[2023-02-09] MEDS: METOPROLOL TARTRATE 12.5 MG TABLET PO (08:46)
[2023-02-09] MEDS: SERTRALINE HCL 50 MG TABLET PO (08:46)
[2023-02-09] MEDS: FUROSEMIDE 20 MG TABLET PO (08:46)
[2023-02-09] MEDS: FENOFIBRATE,MICRONIZED 48 MG TABLET PO (08:46)
[2023-02-09] MEDS: FOLIC ACID 1 MG TABLET PO (08:46)
[2023-02-09] MEDS: SEVELAMER CARBONATE 800 MG TABLET 1600 MG PO ×3 (08:47→20:40)
[2023-02-09] MEDS: TAMSULOSIN HCL 0.4 MG CAPSULE PO (08:47)
--- NOTE | 2023-02-09 10:25 | PM.PNNEP ---
Progress Note: A&P Assessment and Plan (1) ESRD (end stage renal disease): Code(s): N18.6 - End stage renal disease Status: Chronic Assessment and Plan: HD is due today to get him on his schedule. Volume status looks pretty good. And have much swelling. Chest x-ray did show some congestion but he has had 2 dialysis treatments since then. (2) Hyperkalemia: Code(s): E87.5 - Hyperkalemia Status: Resolved Assessment and Plan: Resolved with dialysis (3) Chronic diarrhea: Code(s): K52.9 - Noninfective gastroenteritis and colitis, unspecified Status: Chronic Assessment and Plan: viral etiology? stool culture in progress supportive therapy (4) Anemia: Code(s): D64.9 - Anemia, unspecified Status: Chronic Assessment and Plan: due to ESRD and possibly worsened by acute illness Epogen with HD Hemoglobin 9.6. Received Epogen on Saturday and but not yesterday. Will give him a dose today. Check a CBC in the morning (5) Diabetes mellitus with multiple complications: Code(s): E11.8 - Type 2 diabetes mellitus with unspecified complications Status: Chronic Assessment and Plan: follow Accu-Cheks glycemic control per hospitalists Subjective Date/time seen: 02/09/23 10:25 Interval history: Patient is feeling better today. He had nausea yesterday after dialysis. No more after that or this morning. His blood pressure seems to be doing pretty well. His nausea comes if he eats after his medicine. If he can eat before his medicine the knee does not throw up. The nurse was in the room at the time and so she is going to put a note in the chart to give him his medicines after meals. Exam Narrative: WDWN in NAD skin no rash Or subcu nodules head ncat lungs clear bilaterally cor reg no rub abd BS+ nontender and soft ext no edema. Objective Data Vital Signs Vital Signs: Vital Signs - 24 hr 02/08/23 10:40 02/08/23 11:00 02/08/23 11:20 Temperature Pulse Rate 68 63 77 Respiratory Rate Blood Pressure 162/83 H 160/80 H 134/82 Pulse Oximetry Oxygen Delivery Oxygen Flow Rate 02/08/23 11:40 02/08/23 12:00 02/08/23 12:05 Temperature 98 F Pulse Rate 83 85 77 Respiratory Rate 18 Blood Pressure 137/89 136/78 139/82 Pulse Oximetry 98 Oxygen Delivery Oxygen Flow Rate 02/08/23 12:00 02/08/23 15:42 02/08/23 16:00 Temperature 98.6 F Pulse Rate 77 70 73 Respiratory Rate 20 Blood Pressure 136/54 L Pulse Oximetry 96 Oxygen Delivery Oxygen Flow Rate 02/08/23 19:31 02/08/23 20:15 02/09/23 00:00 Temperature 98.2 F Pulse Rate 70 72 67 Respiratory Rate 16 Blood Pressure 126/47 L Pulse Oximetry 95 Oxygen Delivery Oxygen Flow Rate 02/09/23 04:12 02/09/23 04:00 02/09/23 08:44 Temperature 97.8 F Pulse Rate 61 61 66 Respiratory Rate 16 17 Blood Pressure 121/55 L 133/60 Pulse Oximetry 98 99 Oxygen Delivery Oxygen Flow Rate 02/09/23 08:46 02/09/23 09:50 02/09/23 10:17 Temperature Pulse Rate 64 Respiratory Rate Blood Pressure Pulse Oximetry 100 92 Oxygen Delivery Nasal Cannula Nasal Cannula Oxygen Flow Rate 2 1 Intake/Output Intake/Output: Intake & Output 02/06/23 02/07/23 02/08/23 02/09/23 23:59 23:59 23:59 23:59 Intake Total 240 1700 170 Output Total 2200 1999 Balance -1960 -300 170 Meds/Results Medications: Active Medications Generic Name Dose Route Start Last Admin Trade Name Freq PRN Reason Stop Dose Admin Albuterol 2.5 mg 02/07/23 16:48 Albuterol Sulfate Neb 2.5 Mg/3 Ml Inh INHALATION Q4HRT PRN Shortness Of Breath Aspirin 81 mg 02/08/23 09:00 02/09/23 08:46 Aspirin 81 Mg Enteric Tablet PO 81 mg DAILY [place] Administration Atorvastatin Calcium 40 mg 02/07/23 21:00 02/08/23 21:45 Atorvastatin 40 Mg Tablet PO
--- NOTE | 2023-02-09 10:28 | PM.IMPN ---
Progress Note: A&P Assessment and Plan (1) CKD (chronic kidney disease) stage 3, GFR 30-59 ml/min: Code(s): N18.3 - Chronic kidney disease, stage 3 (moderate) Status: Chronic Assessment and Plan: The patient missed this past Saturday and only had a partial on Saturday. He is on a Saturday, , Saturday schedule. The patient is currently in dialysis. The patient's potassium was up to 6.4. The patient was given a concoction in the emergency room. Nephrology is following could alongside does. The patient was given Epoetin. The patient rarely makes urine. He was given Lasix today. Patient got dialysis on 02/07/2023, 02/08/2023 and is planned for 02/09/2023. He should be back on schedule after this. Possible discharge tomorrow (2) Chronic diarrhea: Code(s): K52.9 - Noninfective gastroenteritis and colitis, unspecified Status: Chronic Assessment and Plan: The patient stated that he has had diarrhea for months and that is why he missed dialysis will check stool cultures. .Magnesium 2.1 Stool studies and negative thus far C diff not performed due to patient's stool being formed occult blood negative (3) Hyperkalemia: Code(s): E87.5 - Hyperkalemia Status: Resolved Assessment and Plan: The patient was given a concoction in the emergency room. The patient had missed his last dialysis and only had a portion of dialysis on Saturday. He is currently receiving hemodialysis. Potassium returned to normal after hemodialysis. (4) Diabetic neuropathy: Code(s): E11.40 - Type 2 diabetes mellitus with diabetic neuropathy, unspecified Status: Chronic Assessment and Plan: Continue with mirtazapine (5) Diabetes mellitus with multiple complications: Code(s): E11.8 - Type 2 diabetes mellitus with unspecified complications Status: Chronic Assessment and Plan: Accu-Cheks AC and HS with sliding scale insulin. Check A1c. Continue with Tradjenta if formulary. (6) Anemia: Code(s): D64.9 - Anemia, unspecified Status: Chronic Assessment and Plan: The patient was given Epogen. Continue to monitor the patient. (7) CHF (congestive heart failure): Code(s): I50.9 - Heart failure, unspecified Status: Chronic Assessment and Plan: Continue with metoprolol, Subjective Date/time seen: 02/09/23 10:28 Interval history: Patient resting in bed plan for dialysis at 2:00 p.m. this afternoon. He is no longer having any diarrhea. Most of his symptoms have resolved. He states he does feel little groggy after dialysis which is normal for him. His labs and vital signs are stable. He will not be finished with dialysis until this evening. Due to this he will likely be discharged tomorrow. Review of Systems Review of Systems: All systems reviewed & are unremarkable except as noted in HPI and below Exam Narrative: GENERAL: Comfortable, no acute distress HENMT: moist mucous membranes EYES: EOM intact b/l NECK: no lymphadenopathy RESPIRATORY: clear to auscultation CARDIO: RRR GI: soft, nontender, bowel sounds present SKIN: no rashes EXTREMITIES: Bilateral lower extremity below the knee amputation; no edema Objective Data Vital Signs Vital Signs: Vital Signs - 24 hr 02/08/23 10:40 02/08/23 11:00 02/08/23 11:20 Temperature Pulse Rate 68 63 77 Respiratory Rate Blood Pressure 162/83 H 160/80 H 134/82 Pulse Oximetry Oxygen Delivery Oxygen Flow Rate 02/08/23 11:40 02/08/23 12:00 02/08/23 12:05 Temperature 98 F Pulse Rate 83 85 77 Respiratory Rate 18 Blood Pressure 137/89 136/78 139/82 Pulse Oximetry 98 Oxygen Delivery Oxygen Flow Rate 02/08/23 12:00 02/08/23 15:42 02/08/23 16:00 Temperature 98.6 F Pulse Rate 77 70 73 Respiratory Rate 20 Blood Pressure 136/54 L Pulse Oximetry 96 Oxygen Delivery Oxygen Fl
[2023-02-09 12:00] LABS: Glucose Point of Care 144 mg/dl (65-105)
[2023-02-09] MEDS: MULTIVITAMINS THERAPEUTIC TAB (*BKC) 1 TABLET PO (12:43)
--- NOTE | 2023-02-09 12:50 | PC.NURSE ---
Spoke with Dialysis nurse about Epoetin injection, dialysis nurse states she will give during patient's treatment
[2023-02-09] MEDS: EPOETIN ALFA-EPBX 10,000 UNITS/ML VIAL 10000 UNITS SUB-Q (17:04)
[2023-02-09 20:22] LABS: Glucose Point of Care 124 mg/dl (65-105)
[2023-02-09] MEDS: ATORVASTATIN 40 MG TABLET PO (20:40)
[2023-02-09] MEDS: GABAPENTIN 100 MG CAPSULE 200 MG PO (20:41)
[2023-02-09] MEDS: INSULIN GLARGINE (*BKC) 100 UNITS/ML 8 UNITS SUB-Q (20:41)
[2023-02-09] MEDS: MIRTAZAPINE 15 MG TABLET PO (20:42)
[2023-02-10] VITALS (13 sets, daily range): BP systolic 121–129; BP diastolic 47–59; PULSE 60–92; RESP 16–20; TEMP 36.5–36.6; O2SAT 87–100
[2023-02-10 05:31] LABS: Hematocrit 31.4 % (42.0-52.0); Hemoglobin 9.7 g/dL (14.0-18.0); Mean Corpuscular HGB Conc 30.9 g/dl (32-36); Mean Corpuscular Hemoglobin 32.1 pg (26-34); Mean Platelet Volume 12.9 fl (7.4-10.4); Platelet Count Result 126 k/mm3 (150-375); Red Blood Count 3.02 M/mm3 (4.6-6.20); Red Cell Distribution Width 15.2 % (11.5-14.5); White Blood Count 12.6 K/mm3 (4.5-10.0)
[2023-02-10 05:48] LABS: Alanine Aminotransferase 23 U/L (6-50); Albumin Level 3.6 g/dL (3.5-5.1); Alkaline Phosphatase 107 U/L (38-126); Anion Gap 8 mmol/L (8-16); Aspartate Amino Transferase 32 U/L (17-59); Bilirubin,Total 0.8 mg/dL (0.2-1.3); Blood Urea Nitrogen 41 mg/dL (9-20); Calcium 8.4 mg/dL (8.4-10.2); Carbon Dioxide 35 mmol/L (22-30); Chloride 99 mmol/L (98-107); Estimated CRCL calculation 21 ml/min; Estimated Glomerular Filt Rate 16; Glucose 157 mg/dL (65-110); Phosphorus 3.3 mg/dL (2.5-4.5); Potassium 3.8 mmol/L (3.4-5.0); Sodium 142 mmol/L (137-145)
[2023-02-10 08:39] LABS: Glucose Point of Care 129 mg/dl (65-105)
--- NOTE | 2023-02-10 08:42 | PM.PNNEP ---
Progress Note: A&P Assessment and Plan (1) ESRD (end stage renal disease): Code(s): N18.6 - End stage renal disease Status: Chronic Assessment and Plan: HD was done yesterday and will get done again at [facility] on Saturday. Volume status looks pretty good. Not much swelling. (2) Hyperkalemia: Code(s): E87.5 - Hyperkalemia Status: Resolved Assessment and Plan: Resolved with dialysis (3) Chronic diarrhea: Code(s): K52.9 - Noninfective gastroenteritis and colitis, unspecified Status: Chronic Assessment and Plan: viral etiology? stool culture in progress supportive therapy (4) Anemia: Code(s): D64.9 - Anemia, unspecified Status: Chronic Assessment and Plan: due to ESRD and possibly worsened by acute illness Epogen with HD Hemoglobin 9.7 . Responding to Epogen (5) Diabetes mellitus with multiple complications: Code(s): E11.8 - Type 2 diabetes mellitus with unspecified complications Status: Chronic Assessment and Plan: follow Accu-Cheks glycemic control per hospitalists Subjective Date/time seen: 02/10/23 08:42 Interval history: Patient is feeling better today. he is sleepy today. He did well in dialysis yesterday. Exam Narrative: WDWN in NAD skin no rash Or subcu nodules head ncat lungs clear bilaterally cor reg no rub or gallop abd BS+ nontender and soft ext no edema or cyanosis. Objective Data Vital Signs Vital Signs: Vital Signs - 24 hr 02/09/23 08:44 02/09/23 08:46 02/09/23 09:50 Temperature Pulse Rate 66 64 Respiratory Rate 17 Blood Pressure 133/60 Pulse Oximetry 99 100 Oxygen Delivery Nasal Cannula Oxygen Flow Rate 2 02/09/23 10:17 02/09/23 08:45 02/09/23 10:50 Temperature 98.5 F Pulse Rate 67 Respiratory Rate 16 Blood Pressure 125/51 L Pulse Oximetry 92 92 97 Oxygen Delivery Nasal Cannula Nasal Cannula Oxygen Flow Rate 1 1 02/09/23 12:00 02/09/23 13:50 02/09/23 15:15 Temperature 98.1 F Pulse Rate 66 63 Respiratory Rate 12 Blood Pressure 131/55 L Pulse Oximetry 93 Oxygen Delivery Oxygen Flow Rate 1.5 02/09/23 15:15 02/09/23 15:28 02/09/23 15:40 Temperature 98.1 F Pulse Rate 65 65 63 Respiratory Rate 14 Blood Pressure 134/70 129/66 142/68 H Pulse Oximetry Oxygen Delivery Oxygen Flow Rate 02/09/23 16:00 02/09/23 16:20 02/09/23 16:40 Temperature Pulse Rate 62 61 62 Respiratory Rate Blood Pressure 139/67 137/72 145/75 H Pulse Oximetry Oxygen Delivery Oxygen Flow Rate 02/09/23 16:00 02/09/23 17:00 02/09/23 17:20 Temperature Pulse Rate 62 61 62 Respiratory Rate Blood Pressure 137/68 145/69 H Pulse Oximetry Oxygen Delivery Oxygen Flow Rate 02/09/23 17:40 02/09/23 18:00 02/09/23 18:20 Temperature Pulse Rate 63 64 65 Respiratory Rate Blood Pressure 147/70 H 143/68 H 150/66 H Pulse Oximetry Oxygen Delivery Oxygen Flow Rate 02/09/23 18:30 02/09/23 19:15 02/09/23 19:39 Temperature 98.3 F 97.8 F Pulse Rate 65 65 71 Respiratory Rate 17 16 Blood Pressure 139/70 135/66 143/53 H Pulse Oximetry 100 Oxygen Delivery Oxygen Flow Rate 02/09/23 20:00 02/09/23 20:00 02/10/23 00:00 Temperature Pulse Rate 74 71 Respiratory Rate Blood Pressure Pulse Oximetry 95 Oxygen Delivery Nasal Cannula Oxygen Flow Rate 2 02/10/23 04:06 02/10/23 04:00 Temperature 97.8 F Pulse Rate 91 92 Respiratory Rate 16 Blood Pressure 122/47 L Pulse Oximetry 90 Oxygen Delivery Oxygen Flow Rate Intake/Output Intake/Output: Intake & Output 02/07/23 02/08/23 02/09/23 02/10/23 23:59 23:59 23:59 23:59 Intake Total 240 1700 410 50 Output Total 2200 1999 1999 Lhmblpp -3899 -021 -9582 50 Meds/Results Medications: Active Medications Generic Name Dose Route Start Last Admin
[2023-02-10] MEDS: FERROUS SULFATE 324 MG TABLET PO (10:01)
[2023-02-10] MEDS: OMEGA 3 POLYUNSAT FATTY ACIDS 1 GM CAP PO (10:01)
[2023-02-10] MEDS: ISOSORBIDE DINITRATE 20 MG TABLET PO ×2 (10:01→13:17)
[2023-02-10] MEDS: CHOLECALCIFEROL 1,000 UNITS TABLET 2000 UNITS PO (10:01)
[2023-02-10] MEDS: COLLAGENASE OINT 30 GM TUBE 1 APPLIC TOPICAL (10:01)
[2023-02-10] MEDS: FUROSEMIDE 20 MG TABLET PO (10:01)
[2023-02-10] MEDS: SERTRALINE HCL 50 MG TABLET PO (10:01)
[2023-02-10] MEDS: METOPROLOL TARTRATE 12.5 MG TABLET PO (10:01)
[2023-02-10] MEDS: FOLIC ACID 1 MG TABLET PO (10:01)
[2023-02-10] MEDS: ASPIRIN 81 MG ENTERIC TABLET PO (10:01)
[2023-02-10] MEDS: FENOFIBRATE,MICRONIZED 48 MG TABLET PO (10:01)
[2023-02-10] MEDS: SERTRALINE HCL 50 MG TABLET 100 MG PO (10:02)
[2023-02-10] MEDS: TAMSULOSIN HCL 0.4 MG CAPSULE PO (10:02)
[2023-02-10] MEDS: SEVELAMER CARBONATE 800 MG TABLET 1600 MG PO ×2 (10:02→13:18)
[2023-02-10 12:22] LABS: Glucose Point of Care 129 mg/dl (65-105)
--- NOTE | 2023-02-10 12:22 | HOMEO2EVAL ---
Evaluation was performed at [facility] Home Oxygen Evaluation RC: Home Oxygen (O2) Evaluation Start: 02/10/23 11:38 Freq: ONCE Status: Active Protocol: RPE Activity Type Activity Date Activity User E-sign Co-sign Detail Recorded Client Recorded Date Recorded By Document 02/10/23 12:05 KAG [email or web address] 02/10/23 12:19 KAG Document 02/10/23 12:10 KAG [email or web address] 02/10/23 12:20 KAG Document 02/10/23 12:12 KAG [email or web address] 02/10/23 12:22 KAG 02/10/23 02/10/23 02/10/23 12:05 12:10 12:12 Home O2 Evaluation [Oxygen] -Test Phase Resting Resting Exercise -Oxygen Delivery Room Air Nasal Cannula Nasal Cannula -Oxygen Flow Rate (L/min) 1 1 [Pulse Oximetry] -Pulse Oximetry (90-100 %) 87 L 94 94 [Pulse Rate] -Pulse Rate (60-100 beats/min) 65 61 67 [Evaluation] -Activity Tolerance Good [Comments] -Home Oxygen Evaluation Comments Placed pt on 1L Pt is not due to low mobile to walk, SpO2. had pt move arms and legs in bed for exerise purpose . Required only 1L during activity. [Charges] -Treatment Charges O2 Evaluation - Inpatient
--- NOTE | 2023-02-10 12:23 | PCRCNOTE ---
Home evaluation completed: Patient requires 1L at rest and with activity.
[2023-02-10] MEDS: MULTIVITAMINS THERAPEUTIC TAB (*BKC) 1 TABLET PO (13:17)
--- NOTE | 2023-02-10 13:22 | PM.DS ---
DS: Admitting Diagnosis Discharge Date 02/10/23 Admitting Diagnosis missed dialysis DS: Discharge Diagnosis Discharge Diagnosis (1) CKD (chronic kidney disease) stage 3, GFR 30-59 ml/min: Code(s): N18.3 - Chronic kidney disease, stage 3 (moderate) Status: Chronic Assessment and Plan: The patient missed this past Saturday and only had a partial on Saturday. He is on a Saturday, , Saturday schedule. The patient is currently in dialysis. The patient's potassium was up to 6.4. The patient was given a concoction in the emergency room. Nephrology is following could alongside does. The patient was given Epoetin. The patient rarely makes urine. He was given Lasix today. Patient got dialysis on 02/07/2023, 02/08/2023 and 02/09/2023. He should be back on schedule after this. (2) Chronic diarrhea: Code(s): K52.9 - Noninfective gastroenteritis and colitis, unspecified Status: Chronic Assessment and Plan: The patient stated that he has had diarrhea for months and that is why he missed dialysis will check stool cultures. .Magnesium 2.1 Stool studies and negative thus far C diff not performed due to patient's stool being formed occult blood negative (3) Hyperkalemia: Code(s): E87.5 - Hyperkalemia Status: Resolved Assessment and Plan: The patient was given a concoction in the emergency room. The patient had missed his last dialysis and only had a portion of dialysis on Saturday. He is currently receiving hemodialysis. Potassium returned to normal after hemodialysis. (4) Diabetic neuropathy: Code(s): E11.40 - Type 2 diabetes mellitus with diabetic neuropathy, unspecified Status: Chronic Assessment and Plan: Continue with mirtazapine (5) Diabetes mellitus with multiple complications: Code(s): E11.8 - Type 2 diabetes mellitus with unspecified complications Status: Chronic Assessment and Plan: Accu-Cheks AC and HS with sliding scale insulin. Check A1c. Continue with Tradjenta if formulary. (6) Anemia: Code(s): D64.9 - Anemia, unspecified Status: Chronic Assessment and Plan: The patient was given Epogen. Continue to monitor the patient. (7) CHF (congestive heart failure): Code(s): I50.9 - Heart failure, unspecified Status: Chronic Assessment and Plan: Continue with metoprolol, DS: Summary Hospital Course Hospital Course: This is a 57-year-old male with past medical history of end-stage renal disease and gets dialysis on Saturday the present to the ED with complaints of abdominal pain, nausea, vomiting and shortness of breath. Patient also has chronic diarrhea. Stool cultures done and negative for acute infection. Patient got dialysis on Saturday and did not receive full-dose on Saturday. H&H is 10.4? And 32.8 platelets 143. potassium 6.4.? Anion gap 18 BUN greater than 120 creatinine 9.3. he was negative for influenza a B RSV and COVID. Nephrology consulted. Patient was taken directly to hemodialysis.? the patient was given IV fluids, regular insulin, he in hydromorphone, Lasix, Epogen, D50, calcium gluconate,? zirconium,and albumin.? Patient received dialysis on 02/07, 02/08 and 02/09. After that patient is back on his dialysis schedule. Patient did require oxygen supplementation. Chest x-ray showed small right pleural effusion and pulmonary edema. Repeat chest x-ray showed small right pleural effusion and mild pulmonary edema. Home oxygen evaluation performed. Patient is very tired and states that this is normal after receiving dialysis. His labs and vital signs are stable and he is medically clear for discharge. Time Spent with Patient Time attestation: Total time spent providing and/or coordinating discharge services: Exam Narrative: GENERAL: Comfortable, no acute distress HENMT: moist mucous membranes EYES: EOM i
== END 2023-02-10 16:50 | disposition home or self-care (01) ==
LOC: ANHED 08:50 → ANH2MED 02-08 06:37
PROVIDERS: Emergency Medicine; Internal Medicine Critical Care Medicine; Internal Medicine Nephrology; Nurse Practitioner; Admitting Provider Hospitalist; Emergency Provider Emergency Medicine; PCP Internal Medicine; Visit Provider Internal Medicine
DX: I13.0 Hypertensive heart and chronic kidney disease with heart failure and stage 1 through stage 4 chronic kidney disease, or unspecified chronic kidney disease (principal); E11.22 Type 2 diabetes mellitus with diabetic chronic kidney disease; N18.30 Chronic kidney disease, stage 3 unspecified; I50.43 Acute on chronic combined systolic (congestive) and diastolic (congestive) heart failure; N17.9 Acute kidney failure, unspecified; D63.1 Anemia in chronic kidney disease; F41.8 Other specified anxiety disorders; K52.9 Noninfective gastroenteritis and colitis, unspecified; E87.5 Hyperkalemia; Z20.822 Contact with and (suspected) exposure to COVID-19; J96.90 Respiratory failure, unspecified, unspecified whether with hypoxia or hypercapnia; R53.83 Other fatigue; R18.8 Other ascites; K59.00 Constipation, unspecified; K80.20 Calculus of gallbladder without cholecystitis without obstruction; K42.9 Umbilical hernia without obstruction or gangrene; R00.1 Bradycardia, unspecified; D64.9 Anemia, unspecified; I44.0 Atrioventricular block, first degree; E11.8 Type 2 diabetes mellitus with unspecified complications; I45.4 Nonspecific intraventricular block; G47.33 Obstructive sleep apnea (adult) (pediatric); Z89.512 Acquired absence of left leg below knee; I25.10 Atherosclerotic heart disease of native coronary artery without angina pectoris; R91.8 Other nonspecific abnormal finding of lung field; Z95.1 Presence of aortocoronary bypass graft; E11.42 Type 2 diabetes mellitus with diabetic polyneuropathy; E78.5 Hyperlipidemia, unspecified; F12.90 Cannabis use, unspecified, uncomplicated; Z89.421 Acquired absence of other right toe(s); Z87.891 Personal history of nicotine dependence; Z79.82 Long term (current) use of aspirin; Z79.4 Long term (current) use of insulin; Z79.899 Other long term (current) drug therapy; Z83.3 Family history of diabetes mellitus
CPT/HCPCS: 36415; 71045; 74177; 80048; 80053; 82948; 83036; 83605; 83690; 83735; 84100; 84443; 85025; 85027; 86706; 87045; 87269; 87272; 87340; 87427; 87637; 89055; 93005; 94618; 96374; 96375; 99285; A9270; G0257; G0378; J0612; J1170; J1644; J1815; J1940; J2405; J7030; Q5105; Q9967

== ENCOUNTER 2023-09-16 18:19 | Inpatient (IN) | payer OTHER, SELFPAY ==
[2023-09-16] VITALS (24 sets, daily range): BP systolic 109–142; BP diastolic 46–63; PULSE 63–87; RESP 18–32; TEMP 36.9–37.3; O2SAT 88–99; BMI 25.9
--- NOTE | ~2023-09-16 | XR_ITS ---
EXAMINATION: XR chest 1V portable INDICATION: Shortness of breath TECHNIQUE: Portable AP chest at 1849 hours COMPARISON: 02/10/2023 FINDINGS: The lungs are free of acute opacities. No pleural effusion or pneumothorax. Cardiomegaly is noted. Median sternotomy wires and mediastinal surgical clips are seen, likely from prior coronary a rtery bypass grafting. IMPRESSION: 1. No acute cardiopulmonary abnormality. Reviewed, dictated and finalized at location [employer]. [employer]OLOGIST
--- NOTE | 2023-09-16 18:40 | ECG_ITS ---
Measurements Intervals [place] Rate: 88 P: [place]: 0 QRS: -75 QRSD: 139 T: 85 QT: 422 QTc: 511 Interpretive Statements SINUS RHYTHM WITH MARKED FIRST DEGREE AV BLOCK LEFT BUNDLE BRANCH BLOCK BASELINE ARTIFACT- I, II, AVR, AVL, V1-V3 ABNORMAL ECG COMPARED TO ECG 02/07/2023 03:45:58 SINUS RHYTHM NOW PRESENT LEFT BUNDLE BRANCH BLOCK NOW PRESENT Electronically Signed On 09-17-2023 6:36:12 [employer] E[employer]MENT OPERATOR by Nasim Gee D.O.
--- NOTE | 2023-09-16 18:40 | ED.GENADULT ---
HPI - General Adult General Chief complaint: Shortness of Breath/Dyspnea Stated complaint: hypoxic, hematemesis Time Seen by Provider: 09/16/23 18:23 58 YEARS OLD WHITE MALE STATUS POST DIALYSIS 3 HOURS AGO, PATIENT BEEN COUGHING FOR OVER 1 MONTH, GOT WORSE TODAY, HE VOMITED ONCE, WITH SUDDEN DECREASE OF OXYGENATION. PATIENT IS NOT ON OXYGEN SUPPLEMENT. , DENIES ANY CHEST PAIN OR ABDOMINAL PAIN OR BACK PAIN. Source: patient, family and EMS Mode of arrival: EMS Related Data Home Medications Medication Instructions Recorded Confirmed aspirin 81 mg tablet,delayed 81 mg PO DAILY 06/01/20 02/07/23 release cholecalciferol (vitamin D3) 50 50 mcg PO DAILY 06/01/20 02/07/23 mcg (2,000 unit) tablet (Vitamin D3) ferrous sulfate 325 mg (65 mg 325 mg PO DAILY 06/01/20 02/07/23 iron) tablet insulin glargine 100 unit/mL 8 unit subcut HS 06/01/20 02/07/23 subcutaneous solution (Lantus U-100 Insulin) multivitamin 1 tablet PO DAILY 06/01/20 02/07/23 nitroglycerin 0.4 mg sublingual 0.4 mg sublingual Q5-15M PRN Chest 06/01/20 02/07/23 tablet Pain omega-3 fatty acids-fish oil 360 1 cap PO DAILY 06/01/20 02/07/23 mg-1,200 mg capsule atorvastatin 40 mg tablet (Lipitor) 40 mg PO HS 12/23/20 02/07/23 bisacodyl 10 mg rectal suppository 10 mg RECTAL DAILY PRN Constipation 12/23/20 02/07/23 collagenase clostridium histo. 250 1 applic topical DAILY 12/23/20 02/07/23 unit/gram topical ointment cyclobenzaprine 5 mg tablet 5 mg PO TID PRN Spasms 12/23/20 02/07/23 folic acid 1 mg tablet 1 mg PO DAILY 12/23/20 02/07/23 gabapentin 100 mg tablet 200 mg PO HS 12/23/20 02/07/23 hydralazine 100 mg tablet 100 mg PO TID PRN Hypertension 12/23/20 02/07/23 magnesium citrate (Citroma oral 150 ml PO DAILY PRN Constipation 12/23/20 02/07/23 solution) magnesium hydroxide 400 mg/5 mL 400 mg PO DAILY PRN Constipation 12/23/20 02/07/23 oral suspension (Milk of Magnesia) metoprolol tartrate 25 mg tablet 12.5 mg PO DAILY 12/23/20 02/07/23 sevelamer carbonate 800 mg tablet 1,600 mg PO TID 12/23/20 02/07/23 tamsulosin 0.4 mg capsule (Flomax) 0.4 mg PO DAILY 12/23/20 02/07/23 fenofibrate nanocrystallized 48 mg 48 mg PO DAILY 01/13/23 02/07/23 tablet furosemide 20 mg tablet 20 mg PO DAILY 01/13/23 02/07/23 isosorbide dinitrate 20 mg tablet 20 mg PO TID 01/13/23 02/07/23 linagliptin 5 mg tablet (Tradjenta) 5 mg PO DAILY 01/13/23 02/07/23 mirtazapine 15 mg tablet 15 mg PO HS 01/13/23 02/07/23 sennosides 8.6 mg tablet 8.6 mg PO HS 01/13/23 02/07/23 sertraline 100 mg tablet 100 mg PO DAILY 01/13/23 02/07/23 sertraline 50 mg tablet 50 mg PO DAILY 01/13/23 02/07/23 Allergies Allergy/AdvReac Type Severity Reaction Status Date / Time Penicillins Allergy Unknown Unknown Verified 02/07/23 15:00 bee venom protein (honey bee) Allergy Swelling Verified 02/07/23 15:00 Review of Systems Review of Systems: All systems reviewed & are unremarkable except as noted in HPI and below PMFSH Past Medical History Medical History Acute on chronic blood loss anemia 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 heart failure Last echo 06/06/2020 EF approximately 35-40% and diastolic dysfunction NATAN (acute kidney injury) Anemia Anemia of chronic disease Anxiety and depression Arthritis Below knee amputation Below-knee amputation of left lower extremity with complication CAD (coronary artery disease) CABG x4 2017, Lexiscan stress test January 2020 moderate sized mild partially reversible perfusion defect involving inferior wall consistent with mixed ischemia and infarct, large severe partially reversible perfusion defect involving the anterior lateral and inferior lateral wall consistent with mixed ischemia infarct, small mild partially reversible freezing defect involving left ventricular apex and mid anterior segment consistent with mix ischemia and infarct with EF of 29% Cardiac arrhythmia Went
[2023-09-16] MEDS: ONDANSETRON INJ 4 MG/2 ML VIAL 8 MG IV PUSH (19:01)
[2023-09-16] MEDS: LORazepam INJ (*CRX) 2 MG/ML VIAL 0.5 MG IV PUSH (19:01)
[2023-09-16 19:12] LABS: Basophils Percent Auto 0.4 % (0.2-1.2); Eosinophils Absolute Auto 0.1 K/mm3 (0-0.3); Hematocrit 37.1 % (42.0-52.0); Hemoglobin 10.9 g/dL (14.0-18.0); Immature Granulocyte Absolute 0.05 K/mm3 (0.00-0.031); Immature Granulocyte Percent A 0.5 % (0-0.5); Lymphocytes Absolute Auto 0.22 K/mm3 (0.9-3.2); Mean Corpuscular HGB Conc 29.4 g/dl (32-36); Mean Corpuscular Hemoglobin 27.9 pg (26-34); Mean Corpuscular Volume 95.1 fl (80-100); Mean Platelet Volume 12.8 fl (7.4-10.4); Monocytes Absolute Auto 0.3 K/mm3 (0.1-0.6); Monocytes Percent Auto 3.1 % (2.6-8.5); Neutrophils Absolute Auto 10.1 K/mm3 (1.3-6.7); Platelet Count Result 142 k/mm3 (150-375); Red Cell Distribution Width 20.7 % (11.5-14.5); White Blood Count 10.9 K/mm3 (4.5-10.0)
[2023-09-16 19:23] LABS: INR 1.5; Partial Thromboplastin Time 35.5 SECONDS (22.3-36.8); Prothrombin Time 18.5 Seconds (11.1-14.7)
[2023-09-16 19:25] LABS: Lactic Acid Reflex 2.1 mmol/L (0.7-2.0)
[2023-09-16 19:28] LABS: Anisocytosis 3+ (NORMAL); Hypochromasia 1+ (NORMAL); Schistocytes None Seen (NORMAL)
[2023-09-16 19:53] LABS: Alveolar/Arterial O2 Gradient 131.6 mmHg; Base Excess ABG 4.1 mEq/l (+/-2.0); Fractional Inspired Oxygen 32 %; Oxygen Content ABG 13.5 %vol (16.0-22.0); PCO2 ABG 39.6 mmHg (35.0-45.0); PO2 ABG 50.2 mmHg (80.0-100.0); PO2 FiO2 Ratio Arterial Blood 1.57 %; Total Hemoglobin 11.5 g/dL (12.0-18.0); pH ABG 7.468 (7.350-7.450)
[2023-09-16 19:54] LABS: Oxygen Saturation ABG 87.8 % (95.0-100.0); Oxyhemoglobin 83.6 % THb (90.0-100.0)
[2023-09-16 19:55] LABS: Device NASAL CANNULA; Modified Allen's Test Pass; Site Drawn LEFT RADIAL
[2023-09-16] MEDS: levoFLOXacin 750 MG/D5W 150 ML 750 MG/150 ML BAG 100 MG IVPB (20:45)
[2023-09-16 20:53] LABS: Alanine Aminotransferase 35 U/L (6-50); Albumin Level 3.1 g/dL (3.5-5.1); Alkaline Phosphatase 223 U/L (38-126); Anion Gap 7 mmol/L (8-16); Aspartate Amino Transferase 87 U/L (17-59); Bilirubin,Total 1.8 mg/dL (0.2-1.3); Blood Urea Nitrogen 28 mg/dL (9-20); Calcium 8.1 mg/dL (8.4-10.2); Carbon Dioxide 34 mmol/L (22-30); Chloride 98 mmol/L (98-107); Estimated Glomerular Filt Rate 19; Glucose 77 mg/dL (65-110); Potassium 3.7 mmol/L (3.4-5.0); Sodium 139 mmol/L (137-145)
[2023-09-16 21:00] LABS: Influenza A QL RT-PCR Negative (Negative); Influenza B QL RT-PCR Negative (Negative); RSV RNA, RT-PCR Negative (Negative); SARS-CoV-2 RNA PCR Negative (Negative)
[2023-09-16 21:05] LABS: NT Pro B Type Natriuretic Pept > 30000 pg/mL (19.9-100); Troponin I 0.027 ng/mL (0.000-0.034)
[2023-09-16] MEDS: ALBUTEROL SULFATE NEB 2.5 MG/3 ML INH INHALATION (21:47)
--- NOTE | 2023-09-16 21:47 | PM.IMHP ---
H&P: HPI History of Present Illness Date/Time: 09/16/23 21:47 Chief Complaint: SOB Narrative: this is a 58-year-old male [place] resident past medical history significant for end-stage renal disease on hemodialysis, bilateral [id number] amputation, coronary artery disease status post coronary artery bypass graft, anemia of chronic disease, type 2 diabetes mellitus, benign prostatic hyperplasia, congestive heart failure diabetic neuropathy, obstructive sleep apnea. Patient was brought to the emergency room for evaluation after having a vomit it is believed that there was some aspiration as patient had a drop in his oxygen of saturation with shortness of breath. Preliminary workup was significant for ABG with a pH is 7.46 pCO2 of 30 PO2 of 50. In emergency room patient was placed on supplemental oxygen by nasal cannula 4 L. decision has been made to admit the patient for further evaluation management and treatment. EXAMINATION: XR chest 1V portable INDICATION: Shortness of breath TECHNIQUE: Portable AP chest at 1849 hours COMPARISON: 02/10/2023 FINDINGS: The lungs are free of acute opacities. No pleural effusion or pneumothorax. Cardiomegaly is noted. Median sternotomy wires and mediastinal surgical clips are seen, likely from prior coronary artery bypass grafting. IMPRESSION: 1. No acute cardiopulmonary abnormality. Review of Systems Review of Systems: Shortness of breath ROS unobtainable: Yes unobtainable due to medical condition ( debility, respiratory distress) [facility] Past Medical History Medical History Acute on chronic blood loss anemia 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 heart failure Last echo 06/06/2020 EF approximately 35-40% and diastolic dysfunction NATAN (acute kidney injury) Anemia Anemia of chronic disease Anxiety and depression Arthritis Below knee amputation Below-knee amputation of left lower extremity with complication CAD (coronary artery disease) CABG x4 2017, Lexiscan stress test January 2020 moderate sized mild partially reversible perfusion defect involving inferior wall consistent with mixed ischemia and infarct, large severe partially reversible perfusion defect involving the anterior lateral and inferior lateral wall consistent with mixed ischemia infarct, small mild partially reversible freezing defect involving left ventricular apex and mid anterior segment consistent with mix ischemia and infarct with EF of 29% Cardiac arrhythmia Went into Afib after CABG 2018 Cataract Right cataract pending surgery Diabetes Hemoglobin A1c of 11.03 Jan 2020 Diabetic nephropathy Diabetic neuropathy Diabetic peripheral neuropathy Elevated lipids ESRD (end stage renal disease) History of amputation of toe Left 5th toe 2012 small toe on the right amputated Obstructive sleep apnea does not use a CPAP Stage 3 chronic kidney disease Surgical History Surgical History Amputation toe Left 5th toe. Now has left [id number] amputation. History of quadruple bypass 2018 at [facility] 5 vessel CABG Hx of cardiac cath History of PCI 2012 5 stents S/P dialysis catheter insertion Right upper chest Status post cataract extraction and insertion of intraocular lens of left eye February 2020 Family History Family History Sibling Patient's sister is Diabetes mellitus Sister Acute myocardial infarction Three brothers and 2 sisters History of blood clots Sister Abdominal aortic aneurysm Sister Dementia Brother COPD (chronic obstructive pulmonary disease) Brother Father Acute myocardial infarction, Onset Age: 65 Mother History of blood clots Hypertension, Onset Age: 80 Social History Social History
[2023-09-16 22:13] LABS: Reflex Lactic Acid Yes or No Add Lactic
[2023-09-17] VITALS (22 sets, daily range): BP systolic 113–135; BP diastolic 41–49; PULSE 49–85; RESP 17–22; TEMP 36.3–37.1; O2SAT 93–100
[2023-09-17] MEDS: ALBUTEROL SULFATE NEB 2.5 MG/3 ML INH INHALATION ×4 (03:00→19:44)
--- NOTE | 2023-09-17 06:00 | ECG_ITS ---
Measurements Intervals [place] Rate: 62 P: 63 UT: 291 QRS: 5 QRSD: 145 T: 102 QT: 500 QTc: 511 Interpretive Statements SINUS RHYTHM WITH SECOND DEGREE AV BLOCK, TYPEE I LEFT BUNDLE BRANCH BLOCK BASELINE ARTIFACT- I, III, AVL, AVF, V1-V3 ABNORMAL ECG COMPARED TO ECG 09/16/2023 22:09:30 SECOND DEGREE AV BLOCK NOW PRESENT Electronically Signed On 09-17-2023 9:56:15 HEAD OF ICT by Nasim Gee D.O.
[2023-09-17 07:33] LABS: Lactic Acid 1.7 mmol/L (0.7-2.0)
[2023-09-17 08:06] LABS: Glucose Point of Care 128 mg/dl (65-105)
[2023-09-17 08:11] LABS: Basophils Percent Auto 0.3 % (0.2-1.2); Hematocrit 32.9 % (42.0-52.0); Hemoglobin 9.7 g/dL (14.0-18.0); Immature Granulocyte Absolute 0.07 K/mm3 (0.00-0.031); Immature Granulocyte Percent A 0.7 % (0-0.5); Immature Platelet Fraction Pct 7.1 % (0.9-11.2); Lymphocytes Absolute Auto 0.26 K/mm3 (0.9-3.2); Lymphocytes Percent Auto 2.4 % (18.3-44.2); Mean Corpuscular HGB Conc 29.5 g/dl (32-36); Mean Corpuscular Hemoglobin 28.4 pg (26-34); Mean Corpuscular Volume 96.2 fl (80-100); Mean Platelet Volume 13.6 fl (7.4-10.4); Monocytes Absolute Auto 0.8 K/mm3 (0.1-0.6); Monocytes Percent Auto 7.2 % (2.6-8.5); Neutrophils Absolute Auto 9.5 K/mm3 (1.3-6.7); Neutrophils Percent Auto 89.4 % (45.5-73.1); Platelet Count Result 102 k/mm3 (150-375); Red Blood Count 3.42 M/mm3 (4.6-6.20); Red Cell Distribution Width 20.5 % (11.5-14.5); White Blood Count 10.6 K/mm3 (4.5-10.0)
[2023-09-17] MEDS: PANTOPRAZOLE 40 MG TABLET PO (08:35)
[2023-09-17] MEDS: ASPIRIN 81 MG ENTERIC TABLET PO (08:35)
[2023-09-17] MEDS: methocarbamoL 500 MG TABLET PO ×3 (08:36→16:40)
[2023-09-17] MEDS: SERTRALINE HCL 50 MG TABLET PO (08:36)
[2023-09-17] MEDS: FERROUS SULFATE 325 MG TABLET DR PO (08:36)
[2023-09-17] MEDS: ACIDOPHILUS/BULGARICUS CHEWABLE TABLET 1 TABLET PO ×3 (08:36→16:40)
[2023-09-17] MEDS: OMEGA 3 POLYUNSAT FATTY ACIDS 1 GM CAP PO (08:36)
[2023-09-17] MEDS: FOLIC ACID 1 MG TABLET PO (08:36)
[2023-09-17] MEDS: SEVELAMER CARBONATE 800 MG TABLET 1600 MG PO ×3 (08:36→16:40)
[2023-09-17] MEDS: TAMSULOSIN HCL 0.4 MG CAPSULE PO (08:36)
[2023-09-17] MEDS: MIDODRINE HCL 10 MG TABLET PO ×2 (08:36→16:40)
[2023-09-17] MEDS: LIDOCAINE 5% PATCH 1 PATCH TOPICAL (08:39)
[2023-09-17 09:02] LABS: Alanine Aminotransferase 36 U/L (6-50); Alkaline Phosphatase 201 U/L (38-126); Anion Gap 8 mmol/L (8-16); Aspartate Amino Transferase 81 U/L (17-59); Bilirubin,Total 1.8 mg/dL (0.2-1.3); Blood Urea Nitrogen 35 mg/dL (9-20); Calcium 8.2 mg/dL (8.4-10.2); Carbon Dioxide 33 mmol/L (22-30); Chloride 99 mmol/L (98-107); Estimated CRCL calculation 20 ml/min; Estimated Glomerular Filt Rate 15; Glucose 136 mg/dL (65-110); Potassium 4.4 mmol/L (3.4-5.0); Sodium 140 mmol/L (137-145)
--- NOTE | 2023-09-17 10:55 | PM.CNNEP ---
Assessment and Plan Assessment and plan (1) ESRD (end stage renal disease): Code(s): N18.6 - End stage renal disease Status: Chronic Assessment and Plan: HD tomorrow continue M/W/F schedule while hospitalized follow electrolytes, volume status, and clearance (2) Aspiration pneumonia: Code(s): J69.0 - Pneumonitis due to inhalation of food and vomit Status: Acute Assessment and Plan: admission CXR negative however, noted hypoxia on presentation follow culture data on antibiotics (3) Anemia: Code(s): D64.9 - Anemia, unspecified Status: Chronic Assessment and Plan: due to ESRD and possibly worsened by acute illness Epogen with HD follow trend of H/H (4) Diabetes mellitus with multiple complications: Code(s): E11.8 - Type 2 diabetes mellitus with unspecified complications Status: Chronic Assessment and Plan: follow Accu-Cheks glycemic control per hospitalists I will continue to follow patient with you while he remains hospitalized and make further recommendations as deemed necessary. Thank you for allowing me to participate in care this patient. History of Present Illness Reason for Consult Consult date: 09/17/23 Reason for consult: end stage renal disease Chief Complaint Chief complaint: Acute Hypoxic Respiratory Failure,Aspiration Pneum History of Present Illness Narrative: The patient is a 58-year-old male foot past medical history as outlined below who presented to [facility] Emergency Room via EMS from his nursing facility for further evaluation of hypoxia. The patient presented to his outpatient dialysis unit yesterday for his regularly scheduled dialysis treatment he completed the dialysis treatment and was transported back to his nursing facility afterwards. Apparently, on his presentation back to the nursing facility he was noted to be coughing continuously. He was apparently hypoxic by check by the nursing staff as well. Furthermore, he been having issues with emesis and there was some concern for possible aspiration. Given these symptoms/issues, EMS was called and he was transported to the emergency room for further assessment. Workup and evaluation emergency room confirmed his hypoxia but with supplemental oxygen his O2 saturations had improved. Routine blood test demonstrated labs consistent with his known history of end-stage renal disease and his chest x-ray did not demonstrate any acute infiltrates or significant findings. However, given the aforemention hypoxia in conjunction with his coughing and possible aspiration, appropriate cultures were obtained he was started on antibiotic therapy for possible aspiration pneumonia with subsequent admission to hospital for further therapy. Since his admission, his coughing seems to have abated and at least when I saw the patient, he was not wearing supplemental oxygen in appeared to be comfortable. Renal consultation was requested due to his end-stage renal disease. The patient normally dialyzes on a Saturday, Saturday, Saturday dialysis schedule at [facility] under the care of Dr. Jimmie Peralta. As mentioned above, he did receive his full dialysis treatment yesterday prior to his presentation to the emergency room. As far as I am aware, there were no issues or problems during his dialysis treatment yesterday. He is due for dialysis tomorrow. Currently, at the time my visit, he appears to be in no distress. Review of Systems Review of Systems: As per HPI. [facility] Past Medical History Medical History Acute on chronic blood loss anemia 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 heart failure Last echo 06/06/2020 EF approximately 35-40% and diastolic dysfunction NATAN (acute kidney injury) Anemia Anemia of chronic disease Anxiety and depression Benjamin
[2023-09-17] MEDS: MULTIVITAMINS THERAPEUTIC TAB (*BKC) 1 TABLET PO (11:41)
--- NOTE | 2023-09-17 14:31 | PM.IMPN ---
Progress Note: A&P Assessment and Plan (1) Acute hypoxemic respiratory failure: Code(s): J96.01 - Acute respiratory failure with hypoxia Status: Acute (2) Aspiration pneumonia: Qualifiers: Aspiration pneumonia type: due to vomit Laterality: unspecified laterality Lung location: unspecified part of lung Qualified Code(s): J69.0 - Pneumonitis due to inhalation of food and vomit Code(s): J69.0 - Pneumonitis due to inhalation of food and vomit Status: Acute (3) Below knee amputation: Code(s): S88.119A - Complete traumatic amputation at level between knee and ankle, unspecified lower leg, initial encounter Status: Acute (4) CAD (coronary artery disease), autologous vein bypass graft: Qualifiers: Associated angina: without angina Qualified Code(s): I25.810 - Atherosclerosis of coronary artery bypass graft(s) without angina pectoris Code(s): I25.810 - Atherosclerosis of coronary artery bypass graft(s) without angina pectoris Status: Acute (5) ESRD (end stage renal disease): Code(s): N18.6 - End stage renal disease Status: Chronic Plan ESRD -nephrology consulted -pBNP >94877 -Avoid nephrotoxic drugs. -Monitor antihypertensive drug therapy. -Avoid NSAIDs. -Routine CMP monitoring GFR. -Monitor electrolytes especially potassium. -Antibiotic doses depending on creatinine clearance. -Pharmacy does medications. -HD 09/18/2023 (M/W/F) -Routine follow-up with Nephrology as an outpatient. Pneumonitis due to inhalation of food and vomit admission CXR negative however, noted hypoxia on presentation follow culture data on antibiotics wean oxygen at tolerated trend wbc Anemia -Chronic ESRD -Epogen with dialysis -Trend H&H -resumed Iron supplement BPH -resumed flomax -monitor for retention CAD -Resumed home medications -Denies CP -Cardiac monitoring Code status: Full code per patient DVT prophylaxis: NA Stress ulcer prophylaxis: Protonix 40 daily PT/OT notes: Bedridden/Bilateral BKA Disposition: Patient admitted to the med/tele unit for aspiration PNA following an episode of vomiting with hypoxia. Patient will have dialysis tomorrow monitor respiratory status closely. Patient states he was at a rehab facility before arrival but was suppose to go home believe he lives with niece will need further information for discharge planning. -Patient's previous records reviewed on admission -ER notes reviewed in detail on admission -discussed all findings and current treatment plan with patient/Family/POA -Consultations reviewed for recommendations -Patient's disposition for safe discharge discussed with supervisor case loading Dictation performed by [employer] direct speech recognition software, therefore manager change variants and typographical errors may occur. Time Spent With Patient Time with patient: 15 - 25 minutes Subjective Date/time seen: 09/17/23 14:31 Interval history: Chief Complaint: SOB Narrative: ? This is a 58-year-old male [facility] resident past medical history significant for end-stage renal disease on hemodialysis, bilateral [id number] amputation, coronary artery disease ? status post coronary artery bypass graft, anemia of chronic disease, type 2 diabetes mellitus, benign prostatic hyperplasia, congestive heart failure diabetic neuropathy, obstructive sleep apnea.? Patient was brought to the emergency room for evaluation after having a vomit it is believed that there was some aspiration as patient had a drop in his oxygen of saturation with shortness of breath.? Preliminary workup was significant for ABG with a pH is 7.46? pCO2 of 30 PO2 of 50.? In emergency room patient was placed on supplemental oxygen by nasal cannula 4 L. decision has been made to admit the patient for further evaluation management and treatment. 09/17/2023: Patient resting comfortably in bed in
[2023-09-17 17:21] LABS: Glucose Point of Care 143 mg/dl (65-105)
[2023-09-17] MEDS: SENNOSIDES 8.6 MG TABLET PO (20:07)
[2023-09-17] MEDS: ATORVASTATIN 40 MG TABLET PO (20:07)
[2023-09-17] MEDS: MIRTAZAPINE 15 MG TABLET PO (20:07)
[2023-09-17] MEDS: GABAPENTIN 100 MG CAPSULE 200 MG PO (20:07)
[2023-09-18] VITALS (33 sets, daily range): BP systolic 115–168; BP diastolic 49–71; PULSE 54–90; RESP 16–22; TEMP 35.1–37.7; O2SAT 92–94
[2023-09-18] MEDS: ALBUTEROL SULFATE NEB 2.5 MG/3 ML INH INHALATION ×4 (01:31→20:54)
[2023-09-18 05:32] LABS: Basophils Percent Auto 0.4 % (0.2-1.2); Eosinophils Absolute Auto 0.1 K/mm3 (0-0.3); Eosinophils Percent Auto 1.1 % (0-4.4); Hematocrit 33.2 % (42.0-52.0); Hemoglobin 10.2 g/dL (14.0-18.0); Immature Granulocyte Absolute 0.01 K/mm3 (0.00-0.031); Immature Granulocyte Percent A 0.2 % (0-0.5); Immature Platelet Fraction Pct 7.4 % (0.9-11.2); Lymphocytes Absolute Auto 0.28 K/mm3 (0.9-3.2); Lymphocytes Percent Auto 5.2 % (18.3-44.2); Mean Corpuscular HGB Conc 30.7 g/dl (32-36); Mean Corpuscular Hemoglobin 28.7 pg (26-34); Mean Corpuscular Volume 93.5 fl (80-100); Monocytes Absolute Auto 0.6 K/mm3 (0.1-0.6); Monocytes Percent Auto 10.9 % (2.6-8.5); Neutrophils Absolute Auto 4.4 K/mm3 (1.3-6.7); Neutrophils Percent Auto 82.2 % (45.5-73.1); Platelet Count Result 99 k/mm3 (150-375); Red Blood Count 3.55 M/mm3 (4.6-6.20); Red Cell Distribution Width 20.7 % (11.5-14.5); White Blood Count 5.4 K/mm3 (4.5-10.0)
[2023-09-18 05:40] LABS: Alanine Aminotransferase 35 U/L (6-50); Albumin Level 3.2 g/dL (3.5-5.1); Alkaline Phosphatase 218 U/L (38-126); Anion Gap 9 mmol/L (8-16); Aspartate Amino Transferase 73 U/L (17-59); Bilirubin,Total 2.7 mg/dL (0.2-1.3); Blood Urea Nitrogen 50 mg/dL (9-20); Calcium 8.7 mg/dL (8.4-10.2); Carbon Dioxide 34 mmol/L (22-30); Chloride 97 mmol/L (98-107); Estimated CRCL calculation 15 ml/min; Estimated Glomerular Filt Rate 11; Glucose 127 mg/dL (65-110); Potassium 4.7 mmol/L (3.4-5.0); Sodium 140 mmol/L (137-145)
[2023-09-18 06:02] LABS: Anisocytosis 1+ (NORMAL); Hypochromasia 1+ (NORMAL); Large Platelets Present; Ovalocytes 1+ (NORMAL); Poikilocytosis 1+ (NORMAL); Schistocytes None Seen (NORMAL)
[2023-09-18 06:48] LABS: Hepatitis B Surface Antigen Negative (Negative)
[2023-09-18 07:06] LABS: Hepatitis B Surface Anti Res Negative
[2023-09-18] MEDS: LIDOCAINE 5% PATCH 1 PATCH TOPICAL (07:36)
[2023-09-18] MEDS: MIDODRINE HCL 10 MG TABLET PO ×2 (07:37→17:22)
[2023-09-18] MEDS: SEVELAMER CARBONATE 800 MG TABLET 1600 MG PO ×3 (07:37→17:21)
[2023-09-18] MEDS: PANTOPRAZOLE 40 MG TABLET PO (07:38)
[2023-09-18] MEDS: ACIDOPHILUS/BULGARICUS CHEWABLE TABLET 1 TABLET PO ×3 (07:38→17:22)
[2023-09-18] MEDS: methocarbamoL 500 MG TABLET PO ×3 (07:39→17:22)
[2023-09-18] MEDS: TAMSULOSIN HCL 0.4 MG CAPSULE PO (07:39)
[2023-09-18] MEDS: SERTRALINE HCL 50 MG TABLET PO (07:40)
[2023-09-18] MEDS: FERROUS SULFATE 325 MG TABLET DR PO (08:04)
[2023-09-18] MEDS: OMEGA 3 POLYUNSAT FATTY ACIDS 1 GM CAP PO (08:05)
[2023-09-18] MEDS: ASPIRIN 81 MG ENTERIC TABLET PO (08:05)
[2023-09-18] MEDS: FOLIC ACID 1 MG TABLET PO (08:05)
--- NOTE | 2023-09-18 08:40 | PC.NURSE ---
To dialysis via bed.
--- NOTE | 2023-09-18 10:30 | PM.PNNEP ---
Progress Note: A&P Assessment and Plan (1) ESRD (end stage renal disease): Code(s): N18.6 - End stage renal disease Status: Chronic Assessment and Plan: HD today continue M/W/ schedule while hospitalized follow electrolytes, volume status, and clearance (2) Bacteremia: Code(s): R78.81 - Bacteremia Status: Acute Assessment and Plan: blood cultures with Gram negative bacilli source? on antibiotics follow repeat cultures (3) Aspiration pneumonia: Qualifiers: Aspiration pneumonia type: due to vomit Laterality: unspecified laterality Lung location: unspecified part of lung Qualified Code(s): J69.0 - Pneumonitis due to inhalation of food and vomit Code(s): J69.0 - Pneumonitis due to inhalation of food and vomit Status: Acute Assessment and Plan: admission CXR negative however, noted hypoxia on presentation follow culture data on antibiotics (4) Anemia: Code(s): D64.9 - Anemia, unspecified Status: Chronic Assessment and Plan: due to ESRD and possibly worsened by acute illness Epogen with HD follow trend of H/H (5) Diabetes mellitus with multiple complications: Code(s): E11.8 - Type 2 diabetes mellitus with unspecified complications Status: Chronic Assessment and Plan: follow Accu-Cheks glycemic control per hospitalists Will continue to follow. Subjective Date/time seen: 09/18/23 10:30 Interval history: Follow-up for end stage renal disease on hemodialysis. Tolerating hemodialysis treatment at the time of my visit (seen on HD at 10:20AM); weaned to room air with stable oxygen saturations; noted positive blood cultures; otherwise, no apparent distress voiced; no issues/events overnight or earlier this morning. Exam Narrative: General: WD/WN male in NAD Heart: normal S1 and S2; no rub Lungs: clear anteriorly; dereased at bases Abdomen: soft, nontender, nondistended, positive bowel sounds; s/p bilateral BKAs Extremities: no cyanosis or clubbing; no edema Skin: warm and dry Objective Data Vital Signs Vital Signs: Vital Signs Temp Pulse Resp BP Pulse Ox O2 Del Method 09/18/23 08:01 89 09/18/23 08:27 74 20 09/18/23 08:19 76 22 H 09/18/23 07:52 Room Air 09/18/23 05:28 97.6 F 67 17 121/56 L 92 09/18/23 04:00 62 09/18/23 01:39 56 L 18 09/18/23 01:32 55 L 18 09/18/23 00:00 54 L 09/17/23 20:00 64 09/17/23 20:04 57 L 18 09/17/23 20:00 96 Room Air 09/17/23 19:59 97.9 F 66 18 117/43 L 96 09/17/23 19:44 54 L 18 09/17/23 16:00 98.3 F 74 17 121/48 L 94 09/17/23 16:00 71 09/17/23 14:14 56 L 20 09/17/23 14:00 97.4 F L 85 119/49 L 95 09/17/23 14:09 58 L 20 93 Room Air 09/17/23 14:05 58 L 20 09/17/23 12:00 98.4 F 69 17 119/42 L 93 09/17/23 12:04 56 L 09/17/23 10:54 98.7 F 60 113/48 L 95 Intake/Output Intake/Output: Intake & Output 09/15/23 09/16/23 09/17/23 09/18/23 23:59 23:59 23:59 23:59 Intake Total 150 990 290 Balance 150 990 290 Meds/Results Medications: Active Medications Generic Name Dose Route Start Last Admin Trade Name Freq PRN Reason Stop Dose Admin Acetaminophen 650 mg 09/16/23 21:31 Acetaminophen 325 Mg Tablet PO Q4H PRN Mild Pain (1-3) or Fever Albuterol 2.5 mg 09/17/23 02:00 09/18/23 08:17 Albuterol Sulfate Neb 2.5 Mg/3 Ml Inh INHALATION 2.5 mg Q6HRT SALVADOR Administration Aspirin 81 mg 09/17/23 09:00 09/18/23 08:05 Aspirin 81 Mg Enteric Tablet PO 10/17/23 08:59 81 mg DAILY SALVADOR Administration Atorvastatin Calcium 40 mg 09/17/23 21:00 09/17/23 20:07 Atorvastatin 40 Mg Tablet PO 40 mg HS SALVADOR Administration Epoetin Bradford-epbx 10,000 units 09/18/23 20:00 Epoetin Bradford-Epbx 10,000 Units/Ml Vial IV PUSH 09/18/23 20:01
[2023-09-18] MEDS: EPOETIN ALFA-EPBX 10,000 UNITS/ML VIAL 10000 UNITS IV PUSH (11:24)
[2023-09-18] MEDS: HEPARIN SODIUM 1,000 UNITS/ML VIAL 5000 UNITS (11:25)
[2023-09-18] MEDS: SODIUM CHLORIDE 0.9% IV 1,000 ML 999 ML IV CONT (11:26)
--- NOTE | 2023-09-18 13:47 | PC.NURSE ---
Returned from dialysis via bed.
[2023-09-18] MEDS: MULTIVITAMINS THERAPEUTIC TAB (*BKC) 1 TABLET PO (13:50)
--- NOTE | 2023-09-18 15:25 | PM.IMPN ---
Progress Note: A&P Assessment and Plan (1) Acute hypoxemic respiratory failure: Code(s): J96.01 - Acute respiratory failure with hypoxia Status: Acute Assessment and Plan: see below plan (2) Aspiration pneumonia: Qualifiers: Aspiration pneumonia type: due to vomit Laterality: unspecified laterality Lung location: unspecified part of lung Qualified Code(s): J69.0 - Pneumonitis due to inhalation of food and vomit Code(s): J69.0 - Pneumonitis due to inhalation of food and vomit Status: Acute Assessment and Plan: admission CXR negative however, noted hypoxia on presentation BC prelim gram negative continue Levaquin currently on room air (3) CAD (coronary artery disease), autologous vein bypass graft: Qualifiers: Associated angina: without angina Qualified Code(s): I25.810 - Atherosclerosis of coronary artery bypass graft(s) without angina pectoris Code(s): I25.810 - Atherosclerosis of coronary artery bypass graft(s) without angina pectoris Status: Acute Assessment and Plan: Resumed home medications Cardiac monitoring (4) ESRD (end stage renal disease): Code(s): N18.6 - End stage renal disease Status: Chronic Assessment and Plan: nephrology following - dialysis M/W/F Routine CMP monitoring GFR. Plan Anemia -Chronic ESRD -Epogen with dialysis -Trend H&H -resumed Iron supplement BPH -resumed flomax -monitor for retention Subjective Date/time seen: 09/18/23 15:25 Interval history: Patient reports feeling somewhat better, but still reporting a productive cough with sputum at times. He had dialysis today. Currently on room air. Denies SOB or pain. Continue to monitor labs and signs of sepsis as his BC are showing prelim growth. Currently covered with Levaquin. Plan for EKG tomorrow for monitoring of QTC interval on AB therapy. Review of Systems Review of Systems: All systems reviewed & are unremarkable except as noted in HPI and below Exam Const: General: comfortable, no acute distress, alert, awake and average body habitus HENMT: Head: normal to inspection Ears: hearing grossly normal bilaterally Face and sinus: normal facial exam Eyes: Pupils: Equal, round and reactive pupils present EOM: EOMs intact bilaterally Neck: Neck: no lymphadenopathy Resp: Effort & Inspection: normal respiratory effort Auscultation: clear to auscultation bilaterally, wheezes and diminished lung sounds Cardio: Rate: regular rate Rhythm: regular rhythm Heart sounds: S1 normal heart sound present and S2 normal heart sound present Skin: Rashes: no rashes Wounds: no wounds Neuro: General: patient oriented x3, no focal motor deficits and CN's II-XI intact bilaterally Cognition (Neuro): normal cognition Speech: normal speech Gait exam (Neuro): Unable to assess gait (B/L LE BKA) Extrem: General: normal to inspection Other: RUE dialysis site B/L LE BKA Objective Data Vital Signs Vital Signs: Vital Signs - 24 hr 09/17/23 16:00 09/17/23 16:00 09/17/23 19:44 Temperature 98.3 F Pulse Rate 71 74 54 L Respiratory Rate 17 18 Blood Pressure 121/48 L Pulse Oximetry 94 Oxygen Delivery 09/17/23 19:59 09/17/23 20:00 09/17/23 20:04 Temperature 97.9 F Pulse Rate 66 57 L Respiratory Rate 18 18 Blood Pressure 117/43 L Pulse Oximetry 96 96 Oxygen Delivery Room Air 09/17/23 20:00 09/18/23 00:00 09/18/23 01:32 Temperature Pulse Rate 64 54 L 55 L Respiratory Rate 18 Blood Pressure Pulse Oximetry Oxygen Delivery 09/18/23 01:39 09/18/23 04:00 09/18/23 05:28 Temperature 97.6 F Pulse Rate 56 L 62 67 Respiratory Rate 18 17 Blood Pressure 121/56 L Pulse Oximetry 92 Oxygen Delivery 09/18/23 07:52 09/18/23 08:19 09/18/23 08:27 Temperature Pulse Rate 76 74 Respiratory Rate 22 H 20 Blood Pressure Pulse Oximetry Oxygen Delive
[2023-09-18] MEDS: GABAPENTIN 100 MG CAPSULE 200 MG PO (21:30)
[2023-09-18] MEDS: MIRTAZAPINE 15 MG TABLET PO (21:31)
[2023-09-18] MEDS: ATORVASTATIN 40 MG TABLET PO (21:31)
[2023-09-18] MEDS: levoFLOXacin 500 MG/D5W 100 ML 500 MG/100 ML BAG 100 MG IVPB (21:32)
--- NOTE | 2023-09-18 23:06 | ECG_ITS ---
Measurements Intervals [place] Rate: 61 P: NC: 0 QRS: 16 QRSD: 137 T: 140 QT: 474 QTc: 480 Interpretive Statements SINUS RHYTHM WITH 2ND DEGREE AV BLOCK, MOBITZ TYPE I (WENCKEBACH) LEFT BUNDLE BRANCH BLOCK ABNORMAL ECG COMPARED TO ECG 09/17/2023 09:04:03 NO SIGNIFICANT CHANGES Electronically Signed On 09-19-2023 6:29:41 [employer] by Nasim Gee D.O.
--- NOTE | 2023-09-18 23:49 | PC.NURSE ---
Dr Berger notified patient telemetry showing irregular rhythm suspicious for progressing heart block. EKG ordered, results read second degree heart block type 1. Patient had EKG rhythm changed to second degree type 1 from EKG taken at 0600 09/17, it does not appear providers were aware of this, as it is not mentioned in notes or reports. Dr Berger disagrees with EKG interpretation and states it is a first degree block with dropped QRS complex. Provider aware of previous EKG results from 09/17 and today 09/18 2330, no new orders received, pt will continue to be monitored on telemetry.
[2023-09-19] VITALS (19 sets, daily range): BP systolic 116–134; BP diastolic 48–57; PULSE 60–79; RESP 16–22; TEMP 36.5–37.4; O2SAT 91–96
[2023-09-19] MEDS: ALBUTEROL SULFATE NEB 2.5 MG/3 ML INH INHALATION ×4 (01:44→20:48)
[2023-09-19 05:55] LABS: Basophils Percent Auto 0.4 % (0.2-1.2); Eosinophils Absolute Auto 0.1 K/mm3 (0-0.3); Eosinophils Percent Auto 2.7 % (0-4.4); Hematocrit 32.6 % (42.0-52.0); Hemoglobin 9.6 g/dL (14.0-18.0); Immature Granulocyte Absolute 0.03 K/mm3 (0.00-0.031); Immature Granulocyte Percent A 0.6 % (0-0.5); Immature Platelet Fraction Pct 8.2 % (0.9-11.2); Lymphocytes Absolute Auto 0.36 K/mm3 (0.9-3.2); Lymphocytes Percent Auto 7.3 % (18.3-44.2); Mean Corpuscular HGB Conc 29.4 g/dl (32-36); Mean Corpuscular Hemoglobin 28.4 pg (26-34); Mean Corpuscular Volume 96.4 fl (80-100); Mean Platelet Volume 13.1 fl (7.4-10.4); Monocytes Absolute Auto 0.6 K/mm3 (0.1-0.6); Monocytes Percent Auto 12.9 % (2.6-8.5); Neutrophils Absolute Auto 3.7 K/mm3 (1.3-6.7); Neutrophils Percent Auto 76.1 % (45.5-73.1); Platelet Count Result 97 k/mm3 (150-375); Red Blood Count 3.38 M/mm3 (4.6-6.20); Red Cell Distribution Width 21.1 % (11.5-14.5); White Blood Count 4.9 K/mm3 (4.5-10.0)
[2023-09-19 06:21] LABS: Alanine Aminotransferase 30 U/L (6-50); Alkaline Phosphatase 233 U/L (38-126); Anion Gap 7 mmol/L (8-16); Aspartate Amino Transferase 55 U/L (17-59); Bilirubin,Total 1.8 mg/dL (0.2-1.3); Blood Urea Nitrogen 26 mg/dL (9-20); Calcium 8.3 mg/dL (8.4-10.2); Carbon Dioxide 33 mmol/L (22-30); Chloride 99 mmol/L (98-107); Estimated CRCL calculation 21 ml/min; Estimated Glomerular Filt Rate 16; Glucose 107 mg/dL (65-110); Potassium 3.9 mmol/L (3.4-5.0); Sodium 139 mmol/L (137-145)
[2023-09-19 06:55] LABS: Hypochromasia 1+ (NORMAL); Schistocytes None Seen (NORMAL); Target Cells 1+ (NORMAL)
[2023-09-19 06:56] LABS: Anisocytosis 1+ (NORMAL)
[2023-09-19] MEDS: ASPIRIN 81 MG ENTERIC TABLET PO (08:02)
[2023-09-19] MEDS: SEVELAMER CARBONATE 800 MG TABLET 1600 MG PO ×3 (08:02→16:17)
[2023-09-19] MEDS: TAMSULOSIN HCL 0.4 MG CAPSULE PO (08:02)
[2023-09-19] MEDS: SENNOSIDES 8.6 MG TABLET PO (08:02)
[2023-09-19] MEDS: FERROUS SULFATE 325 MG TABLET DR PO (08:02)
[2023-09-19] MEDS: FOLIC ACID 1 MG TABLET PO (08:02)
[2023-09-19] MEDS: PANTOPRAZOLE 40 MG TABLET PO (08:02)
[2023-09-19] MEDS: MIDODRINE HCL 10 MG TABLET PO ×2 (08:02→16:17)
[2023-09-19] MEDS: OMEGA 3 POLYUNSAT FATTY ACIDS 1 GM CAP PO (08:02)
[2023-09-19] MEDS: methocarbamoL 500 MG TABLET PO ×3 (08:02→16:17)
[2023-09-19] MEDS: ACIDOPHILUS/BULGARICUS CHEWABLE TABLET 1 TABLET PO ×3 (08:02→16:17)
[2023-09-19] MEDS: SERTRALINE HCL 50 MG TABLET PO (08:02)
[2023-09-19] MEDS: LIDOCAINE 5% PATCH 1 PATCH TOPICAL (08:03)
--- NOTE | 2023-09-19 08:06 | ECG_ITS ---
Measurements Intervals [place] Rate: 66 P: 125 NC: 288 QRS: 5 QRSD: 124 T: 180 QT: 442 QTc: 465 Interpretive Statements SINUS RHYTHM WITH FIRST DEGREE AV BLOCK VENTRICULAR PREMATURE COMPLEX LEFT BUNDLE BRANCH BLOCK ABNORMAL ECG COMPARED TO ECG 09/18/2023 23:21:53 FIRST DEGREE AV BLOCK NOW PRESENT Electronically Signed On 09-19-2023 9:56:19 [employer] by Nasim Gee D.O.
--- NOTE | 2023-09-19 11:51 | PM.PNNEP ---
Progress Note: A&P Assessment and Plan (1) ESRD (end stage renal disease): Code(s): N18.6 - End stage renal disease Status: Chronic Assessment and Plan: HD tomorrow continue M/W/F schedule while hospitalized follow electrolytes, volume status, and clearance (2) Bacteremia: Code(s): R78.81 - Bacteremia Status: Acute Assessment and Plan: blood cultures with Gram negative bacilli source? on antibiotics follow repeat cultures (3) Aspiration pneumonia: Qualifiers: Aspiration pneumonia type: due to vomit Laterality: unspecified laterality Lung location: unspecified part of lung Qualified Code(s): J69.0 - Pneumonitis due to inhalation of food and vomit Code(s): J69.0 - Pneumonitis due to inhalation of food and vomit Status: Acute Assessment and Plan: admission CXR negative however, noted hypoxia on presentation follow culture data on antibiotics (4) Anemia: Code(s): D64.9 - Anemia, unspecified Status: Chronic Assessment and Plan: due to ESRD and possibly worsened by acute illness Epogen with HD follow trend of H/H (5) Diabetes mellitus with multiple complications: Code(s): E11.8 - Type 2 diabetes mellitus with unspecified complications Status: Chronic Assessment and Plan: follow Accu-Cheks glycemic control per hospitalists Will continue to follow. Subjective Date/time seen: 09/19/23 11:51 Interval history: Follow-up for end stage renal disease on hemodialysis. Tolerated dialysis treatment yesterday without any issues or problems; breathing/respiratory status seems stable if not improved; remains hemodynamically stable; no apparent distress voiced at the time of my visit; no other concerns voiced. Exam Narrative: General: WD/WN male in NAD Heart: normal S1 and S2; no rub Lungs: clear anteriorly; dereased at bases Abdomen: soft, nontender, nondistended, positive bowel sounds; s/p bilateral BKAs Extremities: no cyanosis or clubbing; no edema Skin: warm and intact Objective Data Vital Signs Vital Signs: Vital Signs Temp Pulse Resp BP Pulse Ox O2 Del Method 09/19/23 08:01 66 20 92 Room Air 09/19/23 08:01 66 09/19/23 09:11 70 20 09/19/23 09:04 68 20 91 Room Air 09/19/23 09:00 68 20 09/19/23 06:00 97.7 F 64 18 116/48 L 96 09/19/23 04:49 64 09/19/23 04:00 69 09/19/23 01:52 79 20 09/19/23 01:44 75 22 H 09/19/23 00:00 60 09/18/23 20:00 64 09/18/23 19:40 98.9 F 86 18 121/49 L 94 09/18/23 16:01 84 09/18/23 12:57 70 122/56 L 09/18/23 12:45 72 134/60 09/18/23 12:30 72 142/56 H 09/18/23 12:15 70 129/59 L 09/18/23 12:00 72 135/63 09/18/23 13:13 99.5 F 71 16 128/54 L 09/18/23 14:00 97.6 F 64 16 124/58 L 94 09/18/23 14:31 22 H 09/18/23 14:23 89 20 09/18/23 12:04 72 Intake/Output Intake/Output: Intake & Output 09/16/23 09/17/23 09/18/23 09/19/23 23:59 23:59 23:59 23:59 Intake Total 150 990 750 480 Output Total 2500 Balance 150 990 -1750 480 Meds/Results Medications: Active Medications Generic Name Dose Route Start Last Admin Trade Name Phillipq PRN Reason Stop Dose Admin Acetaminophen 650 mg 09/16/23 21:31 Acetaminophen 325 Mg Tablet PO Q4H PRN Mild Pain (1-3) or Fever Albuterol 2.5 mg 09/17/23 02:00 09/19/23 09:00 Albuterol Sulfate Neb 2.5 Mg/3 Ml Inh INHALATION 2.5 mg Q6HRT SALVADOR Administration Aspirin 81 mg 09/17/23 09:00 09/19/23 08:02 Aspirin 81 Mg Enteric Tablet PO 10/17/23 08:59 81 mg DAILY SALVADOR Administration Atorvastatin Calcium 40 mg 09/17/23 21:00 09/18/23 21:31 Atorvastatin 40 Mg Tablet PO 40 mg HS SALVADOR Administration Ferrous Sulfate 325 mg 09/17/23 09:00 09/19/23 08:02 Ferrous Sulfate [address] PO 0
[2023-09-19] MEDS: MULTIVITAMINS THERAPEUTIC TAB (*BKC) 1 TABLET PO (12:29)
--- NOTE | 2023-09-19 13:00 | PM.IMPN ---
Progress Note: A&P Assessment and Plan (1) Acute hypoxemic respiratory failure: Code(s): J96.01 - Acute respiratory failure with hypoxia Status: Acute Assessment and Plan: see below plan (2) Aspiration pneumonia: Qualifiers: Aspiration pneumonia type: due to vomit Laterality: unspecified laterality Lung location: unspecified part of lung Qualified Code(s): J69.0 - Pneumonitis due to inhalation of food and vomit Code(s): J69.0 - Pneumonitis due to inhalation of food and vomit Status: Acute Assessment and Plan: admission CXR negative however, noted hypoxia on presentation BC growing Klebsiella pneumoniae continue Levaquin, transitioned to PO today currently on room air (3) CAD (coronary artery disease), autologous vein bypass graft: Qualifiers: Associated angina: without angina Qualified Code(s): I25.810 - Atherosclerosis of coronary artery bypass graft(s) without angina pectoris Code(s): I25.810 - Atherosclerosis of coronary artery bypass graft(s) without angina pectoris Status: Acute Assessment and Plan: Resumed home medications Cardiac monitoring (4) ESRD (end stage renal disease): Code(s): N18.6 - End stage renal disease Status: Chronic Assessment and Plan: nephrology following - dialysis M/W/F Routine CMP monitoring GFR. Plan Anemia: -Chronic ESRD -Epogen with dialysis -Trend H&H -resumed Iron supplement BPH -resumed flomax -monitor for retention Subjective Date/time seen: 09/19/23 13:00 Interval history: Patient denies any complaints today, in no acute distress. Currently on room air. Denies SOB or pain. He is awake and eating breakfast this morning. VS stable. BC showing Klebsiella pneumoniae, susceptible to Levaquin. Transition to PO Levaquin for 7 day course. EKG showed no lengthening of QTC interval. Will continue to monitor. Review of Systems Review of Systems: All systems reviewed & are unremarkable except as noted in HPI and below Exam Const: General: comfortable, no acute distress, alert, awake, ill appearing and average body habitus Orientation/consciousness: patient oriented x3 HENMT: Head: normal to inspection Face/Nose/Sinus: normal facial exam Eyes: Pupils: Equal, round and reactive pupils present EOM: EOMs intact bilaterally Neck: Neck: no lymphadenopathy Resp: Effort & Inspection: normal respiratory effort Auscultation: clear to auscultation bilaterally, wheezes and diminished lung sounds Cardio: Rate: regular rate Rhythm: regular rhythm Heart sounds: S1 normal heart sound present Skin: Rashes: no rashes Wounds: no wounds Neuro: General: patient oriented x3, no focal motor deficits, CN's II-XI intact bilaterally and Unable to assess gait (B/L LE BKA) Cognition (Neuro): normal cognition Speech: normal speech Extrem: Other: RUE dialysis site B/L LE ANAA Objective Data Vital Signs Vital Signs: Vital Signs - 24 hr 09/18/23 14:23 09/18/23 14:31 09/18/23 14:00 Temperature 97.6 F Pulse Rate 89 64 Respiratory Rate 20 22 H 16 Blood Pressure 124/58 L Pulse Oximetry 94 Oxygen Delivery 09/18/23 13:13 09/18/23 16:01 09/18/23 19:40 Temperature 99.5 F 98.9 F Pulse Rate 71 84 86 Respiratory Rate 16 18 Blood Pressure 128/54 L 121/49 L Pulse Oximetry 94 Oxygen Delivery 09/18/23 20:00 09/19/23 00:00 09/19/23 01:44 Temperature Pulse Rate 64 60 75 Respiratory Rate 22 H Blood Pressure Pulse Oximetry Oxygen Delivery 09/19/23 01:52 09/19/23 04:00 09/19/23 04:49 Temperature Pulse Rate 79 69 64 Respiratory Rate 20 Blood Pressure Pulse Oximetry Oxygen Delivery 09/19/23 06:00 09/19/23 09:00 09/19/23 09:04 Temperature 97.7 F Pulse Rate 64 68 68 Respiratory Rate 18 20 20 Blood Pressure 116/48 L Pulse Oximetry 96 91 Oxygen Delivery Room Air 09/19/23 09:11 09/19/23
--- NOTE | 2023-09-19 13:42 | PC.NURSE ---
On 09/19/23, the student, [Marion Rock], provided care and completed [facility] documentation on this patient. I have reviewed the student's documentation and agree with the findings.
[2023-09-19] MEDS: MIRTAZAPINE 15 MG TABLET PO (20:56)
[2023-09-19] MEDS: ATORVASTATIN 40 MG TABLET PO (20:56)
[2023-09-19] MEDS: GABAPENTIN 100 MG CAPSULE 200 MG PO (20:56)
[2023-09-20] VITALS (34 sets, daily range): BP systolic 118–144; BP diastolic 48–77; PULSE 58–98; RESP 16–18; TEMP 36.5–37; O2SAT 92–97
[2023-09-20 05:31] LABS: Basophils Percent Auto 0.6 % (0.2-1.2); Eosinophils Absolute Auto 0.2 K/mm3 (0-0.3); Eosinophils Percent Auto 3.4 % (0-4.4); Hematocrit 31.4 % (42.0-52.0); Hemoglobin 9.3 g/dL (14.0-18.0); Immature Granulocyte Absolute 0.02 K/mm3 (0.00-0.031); Immature Granulocyte Percent A 0.4 % (0-0.5); Immature Platelet Fraction Pct 7.4 % (0.9-11.2); Lymphocytes Absolute Auto 0.36 K/mm3 (0.9-3.2); Lymphocytes Percent Auto 7.6 % (18.3-44.2); Mean Corpuscular HGB Conc 29.6 g/dl (32-36); Mean Corpuscular Hemoglobin 28.1 pg (26-34); Mean Corpuscular Volume 94.9 fl (80-100); Mean Platelet Volume 12.8 fl (7.4-10.4); Monocytes Absolute Auto 0.8 K/mm3 (0.1-0.6); Monocytes Percent Auto 15.9 % (2.6-8.5); Neutrophils Absolute Auto 3.4 K/mm3 (1.3-6.7); Neutrophils Percent Auto 72.1 % (45.5-73.1); Platelet Count Result 89 k/mm3 (150-375); Red Blood Count 3.31 M/mm3 (4.6-6.20); Red Cell Distribution Width 20.7 % (11.5-14.5); White Blood Count 4.7 K/mm3 (4.5-10.0)
[2023-09-20 05:44] LABS: Alanine Aminotransferase 23 U/L (6-50); Albumin Level 3.1 g/dL (3.5-5.1); Alkaline Phosphatase 253 U/L (38-126); Anion Gap 9 mmol/L (8-16); Aspartate Amino Transferase 37 U/L (17-59); Bilirubin,Total 1.6 mg/dL (0.2-1.3); Blood Urea Nitrogen 39 mg/dL (9-20); Calcium 8.4 mg/dL (8.4-10.2); Carbon Dioxide 29 mmol/L (22-30); Chloride 99 mmol/L (98-107); Estimated CRCL calculation 16 ml/min; Estimated Glomerular Filt Rate 12; Glucose 129 mg/dL (65-110); Potassium 4.3 mmol/L (3.4-5.0); Sodium 137 mmol/L (137-145)
[2023-09-20 06:37] LABS: Hypochromasia 2+ (NORMAL)
[2023-09-20 06:38] LABS: Anisocytosis 1+ (NORMAL); Target Cells 1+ (NORMAL)
[2023-09-20 06:39] LABS: Schistocytes None Seen (NORMAL)
[2023-09-20] MEDS: ALBUTEROL SULFATE NEB 2.5 MG/3 ML INH INHALATION ×3 (08:13→20:20)
--- NOTE | 2023-09-20 08:46 | PC.NURSE ---
Patient taken off of unit for dialysis
--- NOTE | 2023-09-20 09:38 | PM.PNNEP ---
Progress Note: A&P Assessment and Plan (1) ESRD (end stage renal disease): Code(s): N18.6 - End stage renal disease Status: Chronic Assessment and Plan: HD today continue M/W/ schedule while hospitalized follow electrolytes, volume status, and clearance (2) Bacteremia: Code(s): R78.81 - Bacteremia Status: Acute Assessment and Plan: blood cultures with Gram negative bacilli source? on antibiotics follow repeat cultures (3) Aspiration pneumonia: Qualifiers: Aspiration pneumonia type: due to vomit Laterality: unspecified laterality Lung location: unspecified part of lung Qualified Code(s): J69.0 - Pneumonitis due to inhalation of food and vomit Code(s): J69.0 - Pneumonitis due to inhalation of food and vomit Status: Acute Assessment and Plan: admission CXR negative however, noted hypoxia on presentation follow culture data on antibiotics (4) Anemia: Code(s): D64.9 - Anemia, unspecified Status: Chronic Assessment and Plan: due to ESRD and possibly worsened by acute illness Epogen with HD follow trend of H/H (5) Diabetes mellitus with multiple complications: Code(s): E11.8 - Type 2 diabetes mellitus with unspecified complications Status: Chronic Assessment and Plan: follow Accu-Cheks glycemic control per hospitalists Will continue to follow. Subjective Date/time seen: 09/20/23 09:38 Interval history: Follow-up for end stage renal disease on hemodialysis. Tolerating hemodialysis treatment at the time of my visit (seen on HD at 9:28AM); no new issues or concerns to report; feels reasonably well and in no distress; breathing/respiratory status stable if not better; no other events overnight or earlier this morning. Exam Narrative: General: WD/WN male in NAD Heart: normal S1 and S2; no rub Lungs: clear anteriorly; dereased at bases Abdomen: soft, nontender, nondistended, positive bowel sounds; s/p bilateral BKAs Extremities: no cyanosis or clubbing; no edema Skin: warm and intact Objective Data Vital Signs Vital Signs: Vital Signs Temp Pulse Resp BP Pulse Ox O2 Del Method 09/20/23 08:55 97.7 F 65 18 132/64 09/20/23 08:23 59 L 18 09/20/23 08:15 58 L 18 94 Room Air 09/20/23 08:13 58 L 18 09/20/23 06:00 97.8 F 61 18 135/58 L 97 09/20/23 04:00 65 09/20/23 02:30 65 18 09/20/23 02:20 63 18 09/20/23 00:00 64 09/19/23 20:00 68 09/19/23 20:52 93 Room Air 09/19/23 20:51 68 18 09/19/23 19:40 98.8 F 70 18 134/57 L 96 09/19/23 16:01 71 09/19/23 14:15 70 20 09/19/23 14:06 79 20 09/19/23 14:00 99.4 F 73 16 126/54 L 95 09/19/23 12:04 70 Intake/Output Intake/Output: Intake & Output 09/17/23 09/18/23 09/19/23 09/20/23 23:59 23:59 23:59 23:59 Intake Total 270 868 8139 Output Total 2500 Balance 990 -1750 1180 Meds/Results Medications: Active Medications Generic Name Dose Route Start Last Admin Trade Name Saulo PRN Reason Stop Dose Admin Acetaminophen 650 mg 09/16/23 21:31 Acetaminophen 325 Mg Tablet PO Q4H PRN Mild Pain (1-3) or Fever Albuterol 2.5 mg 09/17/23 02:00 09/20/23 08:13 Albuterol Sulfate Neb 2.5 Mg/3 Ml Inh INHALATION 2.5 mg Q6HRT SALVADOR Administration Aspirin 81 mg 09/17/23 09:00 09/19/23 08:02 Aspirin 81 Mg Enteric Tablet PO 10/17/23 08:59 81 mg DAILY SALVADOR Administration Atorvastatin Calcium 40 mg 09/17/23 21:00 09/19/23 20:56 Atorvastatin 40 Mg Tablet PO 40 mg HS SALVADOR Administration Epoetin Bradford-epbx 10,000 units 09/20/23 20:00 09/20/23 09:41 Epoetin Bradford-Epbx 10,000 Units/Ml Vial IV PUSH 09/20/23 20:01 10,000 units ONCE ONE Administration Ferrous Sulfate 325 mg 09/17/23 09:00 09/19/23 08:02 Ferrous Sulfate [address] PO
[2023-09-20] MEDS: SODIUM CHLORIDE 0.9% IV 1,000 ML 999 ML IV CONT (09:41)
[2023-09-20] MEDS: EPOETIN ALFA-EPBX 10,000 UNITS/ML VIAL 10000 UNITS IV PUSH (09:41)
--- NOTE | 2023-09-20 13:10 | PC.NURSE ---
patient returned to room from dialysis
[2023-09-20] MEDS: methocarbamoL 500 MG TABLET PO ×2 (13:50→18:13)
[2023-09-20] MEDS: PANTOPRAZOLE 40 MG TABLET PO (13:50)
[2023-09-20] MEDS: TAMSULOSIN HCL 0.4 MG CAPSULE PO (13:50)
[2023-09-20] MEDS: MULTIVITAMINS THERAPEUTIC TAB (*BKC) 1 TABLET PO (13:50)
[2023-09-20] MEDS: ASPIRIN 81 MG ENTERIC TABLET PO (13:50)
[2023-09-20] MEDS: FOLIC ACID 1 MG TABLET PO (13:50)
[2023-09-20] MEDS: FERROUS SULFATE 325 MG TABLET DR PO (13:50)
[2023-09-20] MEDS: SERTRALINE HCL 50 MG TABLET PO (13:50)
[2023-09-20] MEDS: ACIDOPHILUS/BULGARICUS CHEWABLE TABLET 1 TABLET PO ×2 (13:50→18:14)
[2023-09-20] MEDS: OMEGA 3 POLYUNSAT FATTY ACIDS 1 GM CAP PO (13:50)
[2023-09-20] MEDS: SEVELAMER CARBONATE 800 MG TABLET 1600 MG PO ×2 (13:50→18:14)
[2023-09-20] MEDS: LIDOCAINE 5% PATCH 1 PATCH TOPICAL (14:09)
[2023-09-20 14:59] LABS: Anion Gap 9 mmol/L (8-16); Blood Urea Nitrogen 13 mg/dL (9-20); Calcium 8.9 mg/dL (8.4-10.2); Carbon Dioxide 27 mmol/L (22-30); Chloride 106 mmol/L (98-107); Estimated CRCL calculation 34 ml/min; Estimated Glomerular Filt Rate 29; Glucose 127 mg/dL (65-110); Potassium 4.3 mmol/L (3.4-5.0); Sodium 142 mmol/L (137-145)
--- NOTE | 2023-09-20 15:13 | PM.DS ---
DS: Admitting Diagnosis Discharge Date 09/20/23 Admitting Diagnosis Acute hypoxemic respiratory failure DS: Discharge Diagnosis Discharge Diagnosis (1) Acute hypoxemic respiratory failure: Code(s): J96.01 - Acute respiratory failure with hypoxia Status: Acute Assessment and Plan: see below plan (2) Aspiration pneumonia: Qualifiers: Aspiration pneumonia type: due to vomit Laterality: unspecified laterality Lung location: unspecified part of lung Qualified Code(s): J69.0 - Pneumonitis due to inhalation of food and vomit Code(s): J69.0 - Pneumonitis due to inhalation of food and vomit Status: Acute Assessment and Plan: admission CXR negative however, noted hypoxia on presentation BC growing Klebsiella pneumoniae continue Levaquin, will d/c on renally dosed currently on room air (3) CAD (coronary artery disease), autologous vein bypass graft: Qualifiers: Associated angina: without angina Qualified Code(s): I25.810 - Atherosclerosis of coronary artery bypass graft(s) without angina pectoris Code(s): I25.810 - Atherosclerosis of coronary artery bypass graft(s) without angina pectoris Status: Acute Assessment and Plan: Resumed home medications (4) ESRD (end stage renal disease): Code(s): N18.6 - End stage renal disease Status: Chronic Assessment and Plan: nephrology following - dialysis M/W/F Routine CMP monitoring GFR. Plan Anemia: -Chronic ESRD -Epogen with dialysis -resumed Iron supplement BPH -resumed flomax -monitor for retention DS: Summary Hospital Course Hospital Course: Patient is a 58 YO male care home resident with PMH significant for end-stage renal disease on hemodialysis, bilateral [id number] amputation, coronary artery disease status post coronary artery bypass graft, anemia of chronic disease, type 2 diabetes mellitus, benign prostatic hyperplasia, congestive heart failure diabetic neuropathy, obstructive sleep apnea. Patient was admitted for evaluation after vomiting with possibly some aspiration as patient had a drop in his oxygen of saturation with shortness of breath. Preliminary workup was significant for ABG with a pH is 7.46 pCO2 of 30 PO2 of 50. Patient received AB therapy for aspiration pneumonia, BC showed Klebsiella pneumoniae in which he was transitioned to PO Levaquin. He will be d/c to finish course of AB, renally dosed as appropriate. He is on room air, denies SOB, chest pain or pain. He has a productive cough. Labs are stable and renal function at baseline for him. He is stable for d/c today and to follow with his foot roentgenologist as scheduled and continue dialysis on //. Status at Discharge Functional status at discharge: wheelchair bound Overall status at discharge: patient is progressing back to baseline Time Spent with Patient Time attestation: Total time spent providing and/or coordinating discharge services: Exam Const: General: comfortable, alert, awake and average body habitus Nutritional Appearance: average body habitus Orientation/consciousness: patient oriented x3 HENMT: Head: normal to inspection Face/Nose/Sinus: normal facial exam Face and sinus: normal facial exam Eyes: Pupils: Equal, round and reactive pupils present EOM: EOMs intact bilaterally Neck: Neck: no lymphadenopathy Resp: Effort & Inspection: normal respiratory effort Auscultation: clear to auscultation bilaterally, wheezes and diminished lung sounds Cardio: Rate: regular rate Rhythm: regular rhythm Heart sounds: S1 normal heart sound present Skin: Rashes: no rashes Wounds: no wounds Neuro: General: patient oriented x3, no focal motor deficits, CN's II-XI intact bilaterally and Unable to assess gait (B/L LE BKA) Cognition (Neuro): normal cognition Speech: normal speech Gait exam (Neuro): Unable to assess gait (B/L LE BKA) Extrem: Other: RUE dialysis site B/L MENDEZ Pearl
[2023-09-20] MEDS: MIDODRINE HCL 10 MG TABLET PO (18:14)
[2023-09-20] MEDS: levoFLOXacin 500 MG TABLET PO (18:14)
[2023-09-20] MEDS: ATORVASTATIN 40 MG TABLET PO (20:07)
[2023-09-20] MEDS: MIRTAZAPINE 15 MG TABLET PO (20:07)
[2023-09-20] MEDS: GABAPENTIN 100 MG CAPSULE 200 MG PO (20:07)
[2023-09-20 21:12] LABS: Glucose Point of Care 142 mg/dl (65-105)
--- NOTE | 2023-09-25 10:13 | PC.NURSE ---
Blood cultures growing Klebsiella pneumoniae. Pt dc on Levofloxacin. This is susceptible.
== END 2023-09-20 21:10 | DRG 189 ==
LOC: ANHED 21:23 → ANH2MED 23:26
PROVIDERS: Internal Medicine Nephrology; Nurse Practitioner Family; Admitting Provider Internal Medicine; Emergency Provider Emergency Medicine; PCP Hospitalist; Visit Provider Nurse Practitioner
DX: J96.01 Acute respiratory failure with hypoxia (principal); N18.6 End stage renal disease; I25.810 Atherosclerosis of coronary artery bypass graft(s) without angina pectoris; I50.42 Chronic combined systolic (congestive) and diastolic (congestive) heart failure; R78.81 Bacteremia; B96.1 Klebsiella pneumoniae [K. pneumoniae] as the cause of diseases classified elsewhere; E11.22 Type 2 diabetes mellitus with diabetic chronic kidney disease; G47.33 Obstructive sleep apnea (adult) (pediatric); N40.0 Benign prostatic hyperplasia without lower urinary tract symptoms; E11.42 Type 2 diabetes mellitus with diabetic polyneuropathy; D63.1 Anemia in chronic kidney disease; Z87.891 Personal history of nicotine dependence; Z99.2 Dependence on renal dialysis; Z89.512 Acquired absence of left leg below knee; Z89.511 Acquired absence of right leg below knee; Z96.1 Presence of intraocular lens; Z98.42 Cataract extraction status, left eye; Z95.5 Presence of coronary angioplasty implant and graft; Z99.3 Dependence on wheelchair; Z20.822 Contact with and (suspected) exposure to COVID-19
CPT/HCPCS: 36415; 36600; 71045; 80048; 80053; 82805; 82948; 83605; 83880; 84484; 85025; 85055; 85610; 85730; 86706; 87040; 87077; 87186; 87340; 87637; 93005; 94640; 96365; 96375; 99285; A9270; G0257; J1644; J1956; J2060; J2405; J7030; P9047; Q5105

== ENCOUNTER 2023-10-29 09:22 | Observation (INO) | payer OTHER, SELFPAY ==
[2023-10-29] VITALS (64 sets, daily range): BP systolic 103–139; BP diastolic 39–102; PULSE 40–84; RESP 11–23; TEMP 36.2–37.2; O2SAT 84–100; BMI 27.2
[2023-10-29] MEDS: LACTATED RINGERS 1,000 ML 999 ML IV CONT (09:34)
[2023-10-29 09:54] LABS: Basophils Percent Auto 0.5 % (0.2-1.2); Eosinophils Absolute Auto 0.1 K/mm3 (0-0.3); Eosinophils Percent Auto 1.7 % (0-4.4); Hematocrit 24.4 % (42.0-52.0); Hemoglobin 7.3 g/dL (14.0-18.0); Immature Granulocyte Absolute 0.03 K/mm3 (0.00-0.031); Immature Granulocyte Percent A 0.5 % (0-0.5); Immature Platelet Fraction Pct 5.3 % (0.9-11.2); Lymphocytes Absolute Auto 0.54 K/mm3 (0.9-3.2); Lymphocytes Percent Auto 8.2 % (18.3-44.2); Mean Corpuscular HGB Conc 29.9 g/dl (32-36); Mean Corpuscular Hemoglobin 29.9 pg (26-34); Mean Platelet Volume 11.9 fl (7.4-10.4); Monocytes Absolute Auto 0.7 K/mm3 (0.1-0.6); Neutrophils Absolute Auto 5.1 K/mm3 (1.3-6.7); Neutrophils Percent Auto 78.1 % (45.5-73.1); Platelet Count Result 98 k/mm3 (150-375); Red Blood Count 2.44 M/mm3 (4.6-6.20); Red Cell Distribution Width 17.2 % (11.5-14.5); White Blood Count 6.6 K/mm3 (4.5-10.0)
[2023-10-29 10:05] LABS: Partial Thromboplastin Time 41.7 SECONDS (22.3-36.8)
[2023-10-29 10:06] LABS: Alanine Aminotransferase 16 U/L (6-50); Albumin Level 2.5 g/dL (3.5-5.1); Alkaline Phosphatase 213 U/L (38-126); Anion Gap 7 mmol/L (8-16); Aspartate Amino Transferase 27 U/L (17-59); Bilirubin,Total 0.9 mg/dL (0.2-1.3); Blood Urea Nitrogen 51 mg/dL (9-20); Calcium 7.7 mg/dL (8.4-10.2); Carbon Dioxide 29 mmol/L (22-30); Chloride 105 mmol/L (98-107); Estimated CRCL calculation 17 ml/min; Estimated Glomerular Filt Rate 12; Glucose 125 mg/dL (65-110); Potassium 4.4 mmol/L (3.4-5.0); Sodium 141 mmol/L (137-145)
[2023-10-29 10:08] LABS: Hypochromasia 1+ (NORMAL); Ovalocytes 1+ (NORMAL); Platelet Estimate Decreased (Adequate); Schistocytes None Seen (NORMAL)
--- NOTE | 2023-10-29 10:08 | PC.NURSE ---
This RN called pts sister Alejandra at [phone] as pt requested and gave update on pt status/POC. Pt sister states she is unable to come up to the ER/hospital due to she is currently ill w/ the flu. Requested any updates being called to the family member as well.
[2023-10-29 10:17] LABS: INR 1.7; Prothrombin Time 21.2 Seconds (11.1-14.7)
--- NOTE | 2023-10-29 10:17 | ED.GENADULT ---
HPI - General Adult General Chief complaint: GI Bleed Stated complaint: GI bleed Time Seen by Provider: 10/29/23 09:56 History of Present Illness HPI narrative: 58-year-old male present to the emergency department for evaluation persistent epistaxis since yesterday. Patient states yesterday he had a nose bleed for the majority of the day, patient states it was bleeding anteriorly and posteriorly yesterday but is now only bleeding posteriorly. Patient did have some coffee-ground emesis this morning and is having dark melena stool. Related Data Home Medications Medication Instructions Recorded Confirmed ferrous sulfate 325 mg (65 mg 325 mg PO DAILY 06/01/20 09/16/23 iron) tablet multivitamin 1 tablet PO DAILY 06/01/20 09/16/23 nitroglycerin 0.4 mg sublingual 0.4 mg sublingual Q5-15M PRN Chest 06/01/20 09/16/23 tablet Pain omega-3 fatty acids-fish oil 360 1 cap PO DAILY 06/01/20 09/16/23 mg-1,200 mg capsule atorvastatin 40 mg tablet (Lipitor) 40 mg PO HS 12/23/20 09/16/23 folic acid 1 mg tablet 1 mg PO DAILY 12/23/20 09/16/23 gabapentin 100 mg tablet 200 mg PO HS 12/23/20 09/16/23 sevelamer carbonate 800 mg tablet 1,600 mg PO TID 12/23/20 09/16/23 tamsulosin 0.4 mg capsule (Flomax) 0.4 mg PO DAILY 12/23/20 09/16/23 linagliptin 5 mg tablet (Tradjenta) 5 mg PO DAILY 01/13/23 09/16/23 mirtazapine 15 mg tablet 15 mg PO HS 01/13/23 09/16/23 sennosides 8.6 mg tablet 8.6 mg PO BID PRN Constipation 01/13/23 09/18/23 sertraline 50 mg tablet 50 mg PO DAILY 01/13/23 09/16/23 Lactobacillus acidophilus 100 mmu cells PO TID 09/17/23 09/17/23 aspirin 81 mg tablet 81 mg PO DAILY 09/17/23 09/17/23 lidocaine 4 % topical cream 1 applic topical DAILY 09/17/23 09/17/23 meclizine 25 mg tablet 25 mg PO TID PRN Dizziness 09/17/23 09/17/23 methocarbamol 500 mg PO TID 09/17/23 09/17/23 midodrine 10 mg tablet 10 mg PO BID 09/17/23 09/17/23 omeprazole 20 mg capsule,delayed 20 mg PO DAILY 09/17/23 09/17/23 release oxycodone 5 mg tablet 5 mg PO Q4H PRN Pain (Scale Score 09/17/23 09/17/23 7-10) suvorexant 5 mg tablet (Belsomra) 5 mg PO HS 09/17/23 09/17/23 tramadol 50 mg tablet 50 mg PO Q4H PRN Pain (Scale Score 09/17/23 09/17/23 4-6) diphenoxylate-atropine 2.5 2 tablet PO TID PRN Diarrhea 09/18/23 09/18/23 mg-0.025 mg tablet (Lomotil) Allergies Allergy/AdvReac Type Severity Reaction Status Date / Time Penicillins Allergy Unknown Unknown Verified 10/29/23 09:35 bee venom protein (honey bee) Allergy Swelling Verified 10/29/23 09:35 Review of Systems Review of Systems: All systems reviewed & are unremarkable except as noted in HPI and below PMFSH Past Medical History Medical History (Updated 10/29/23 @ 17:52 by Domonique Kline PA-C) Anemia of chronic disease Anxiety and depression Arthritis Combined systolic and diastolic congestive heart failure Coronary artery disease History of multiple stents and 4 vessel bypass. Diabetic nephropathy Diabetic neuropathy Diabetic peripheral neuropathy End-stage renal disease on hemodialysis Hyperlipidemia Obstructive sleep apnea does not use a CPAP Paroxysmal atrial fibrillation Transient atrial fibrillation following bypass surgery. Type 2 diabetes mellitus Surgical History Surgical History (Updated 10/29/23 @ 17:48 by Domonique Kline PA-C) History of amputation of toe Left 5th toe 2012 small toe on the right amputated History of cardiac catheterization History of cataract extraction with lens replacement History of coronary artery stent placement History of left below knee amputation History of quadruple bypass (2018) 2018 at [facility] 5 vessel CABG Family History Family History Sibling Patient's sister is Diabetes mellitus Sister Acute myocardial infarction Three brothers and 2 sisters History of blood clots Sister Abdominal aortic aneurysm Sister Dementia
--- NOTE | 2023-10-29 10:53 | PC.NURSE ---
Dr Salazar at bedside at this time for nasal endoscopy. Pt signed consent and is aware of POC.
--- NOTE | 2023-10-29 11:26 | WPDPROCEDUR ---
Procedures Other Procedures Procedure 1: Other Procedure: Left-sided endoscopic complex cautery all the consents obtained area anesthetized Afrin lidocaine bleeding from the stump of the middle turbinate all be. Multiple rounds of packing multiple rounds of cautery. The bleeding packed with Gelfoam insufflated the Gelfoam with Afrin lidocaine. Patient tolerated the procedure well.
--- NOTE | 2023-10-29 11:27 | WPDCN ---
Assessment and Plan Assessment and plan (1) Left-sided epistaxis: Code(s): R04.0 - Epistaxis Status: Acute Assessment and Plan: complex cautery performed left-sided packed with Gelfoam. Moving forward patient should have himself for someone score 2 large squirts of Afrin on the left side twice a day for the next 5 days. Patient should follow-up with me next week. Patient should shows mupirocin in the front of his nose 2-3 times per day for the next 2 weeks. If bleeds and ENT not available I would pack the left side with a rhino rocket. Or Merocel. HPI Data of Consult Date/Time: 10/29/23 11:27 Primary Care Provider: Mj Nicole MD Consult Narrative Narrative: Kobi Salter is a 58 year old male With epistaxis. Review of Systems Review of Systems: All systems reviewed & are unremarkable except as noted in HPI and below PMFSH Past Medical History Medical History Acute on chronic blood loss anemia 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 heart failure Last echo 06/06/2020 EF approximately 35-40% and diastolic dysfunction NATAN (acute kidney injury) Anemia Anemia of chronic disease Anxiety and depression Arthritis Below knee amputation Below-knee amputation of left lower extremity with complication CAD (coronary artery disease) CABG x4 2017, Lexiscan stress test January 2020 moderate sized mild partially reversible perfusion defect involving inferior wall consistent with mixed ischemia and infarct, large severe partially reversible perfusion defect involving the anterior lateral and inferior lateral wall consistent with mixed ischemia infarct, small mild partially reversible freezing defect involving left ventricular apex and mid anterior segment consistent with mix ischemia and infarct with EF of 29% Cardiac arrhythmia Went into Afib after CABG 2018 Cataract Right cataract pending surgery Diabetes Hemoglobin A1c of 11.03 Jan 2020 Diabetic nephropathy Diabetic neuropathy Diabetic peripheral neuropathy Elevated lipids ESRD (end stage renal disease) History of amputation of toe Left 5th toe 2012 small toe on the right amputated Obstructive sleep apnea does not use a CPAP Stage 3 chronic kidney disease Surgical History Surgical History Amputation toe Left 5th toe. Now has left [id number] amputation. History of quadruple bypass 2018 at [facility] 5 vessel CABG Hx of cardiac cath History of PCI 2012 5 stents S/P dialysis catheter insertion Right upper chest Status post cataract extraction and insertion of intraocular lens of left eye February 2020 Family History Family History Sibling Patient's sister is Diabetes mellitus Sister Acute myocardial infarction Three brothers and 2 sisters History of blood clots Sister Abdominal aortic aneurysm Sister Dementia Brother COPD (chronic obstructive pulmonary disease) Brother Father Acute myocardial infarction, Onset Age: 65 Mother History of blood clots Hypertension, Onset Age: 80 Social History Social History Social History: he lives with his niece . The patient stated that he used to smoke but he quit last year. He is disabled. He has no children. 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 The patient desires to be a full code but does not desire to live in a vegetative state. No alcohol marijuana or illicit drugs. code status: full code Smoking packs per day: 0.25 Smoking cigarettes per day: 5.0 Smoking status: Former smoker Tobacco type: cigarettes Alcohol intake: never Drinks per week: 2 Alcohol use details: Social alcohol use Substance use: former Substance u
[2023-10-29] MEDS: SODIUM CHLORIDE 0.9% IV 250 ML 30 ML IV CONT (11:36)
[2023-10-29] MEDS: TUBING, BLOOD PLUM PUMP TUBING 1 EACH XX (11:37)
--- NOTE | 2023-10-29 11:47 | PC.NURSE ---
Incontinent large amount maroon liquid stool.
--- NOTE | 2023-10-29 17:20 | PM.IMHP ---
H&P: HPI History of Present Illness Date/Time: 10/29/23 18:00 Chief Complaint: Possible GI bleed. Narrative: This is a 58-year-old male with end-stage renal disease on hemodialysis, chronic anemia, combined systolic and diastolic congestive heart failure, coronary artery disease, hypertension, hyperlipidemia type 2 diabetes mellitus, and other comorbidities who presented to the emergency department via EMS from [facility] for evaluation of a possible GI bleed. The patient provides the following history. He had a full dialysis treatment yesterday and shortly thereafter he developed a nose bleed which lasted a majority of the day. This morning he had some bleeding again in the back of his nose and he has since started to feel nauseated and reports having a couple of episodes of coffee-ground emesis. He was sent in for evaluation after he passed a large, dark stool. On arrival to the emergency department he had a posterior bleed and Dr. Salazar was consulted. Patient underwent left-sided endoscopic complex cautery of the middle turbinate and bleeding is now controlled. He is being admitted for close monitoring as his hemoglobin dropped 2 gm compared to labs obtained last month. Blood pressures have remained stable since arrival. He has no current complaints and denies further epistaxis, nausea, abdominal pain, vomiting, and dark stools. No chest pain or shortness of breath. No syncope or near syncope. Review of Systems Review of Systems: Twelve systems were reviewed and are negative except for as per HPI. [facility] Past Medical History Medical History Anemia of chronic disease Anxiety and depression Arthritis Combined systolic and diastolic congestive heart failure Coronary artery disease History of multiple stents and 4 vessel bypass. Diabetic nephropathy Diabetic neuropathy Diabetic peripheral neuropathy End-stage renal disease on hemodialysis Hyperlipidemia Obstructive sleep apnea does not use a CPAP Paroxysmal atrial fibrillation Transient atrial fibrillation following bypass surgery. Type 2 diabetes mellitus Surgical History Surgical History History of amputation of toe Left 5th toe 2013 small toe on the right amputated History of cardiac catheterization History of cataract extraction with lens replacement History of coronary artery stent placement History of left below knee amputation History of quadruple bypass (2017) 2018 at [facility] 5 vessel CABG Family History Family History Sibling Patient's sister is Diabetes mellitus Sister Acute myocardial infarction Three brothers and 2 sisters History of blood clots Sister Abdominal aortic aneurysm Sister Dementia Brother COPD (chronic obstructive pulmonary disease) Brother Father Acute myocardial infarction, Onset Age: 65 Mother History of blood clots Hypertension, Onset Age: 80 Social History Social History Social History: Surrogate medical decision maker: Melodie Roca (niece) or Alejandra Murray (sister). Code status: Do not resuscitate. Smoking packs per day: 0.25 Smoking cigarettes per day: 5.0 Smoking status: Former smoker Tobacco type: cigarettes Alcohol intake: never Drinks per week: 2 Alcohol use details: Social alcohol use. Substance use: former Substance use type: marijuana Last use: 2019 Do You Feel Safe in your Home?: Yes Lack of Transportation: No Lack of Food: Never True Current Housing: I Have Housing Concerned About Future Housing: No Difficulty Paying Gas/Electric Bills: No Difficulty Paying for Meds: No Currently Unemployed: No Education: Associate Degree Difficulty w/
--- NOTE | 2023-10-29 17:45 | PM.CNNEP ---
Assessment and Plan Assessment and plan (1) ESRD (end stage renal disease): Code(s): N18.6 - End stage renal disease Status: Chronic Assessment and Plan: HD tomorrow continue M/W/F schedule while hospitalized follow electrolytes, volume status, and clearance (2) Left-sided epistaxis: Code(s): R04.0 - Epistaxis Status: Acute Assessment and Plan: apparently all day yesterday and recurred today s/p cautherization of left middle turbinate by ENT in ER complicated by coffee ground emesis and melena PRBC transfusion in ER follow H/H (3) Anemia: Code(s): D64.9 - Anemia, unspecified Status: Chronic Assessment and Plan: due to ESRD and worsened by #2 Epogen with HD follow trend of H/H (4) Diabetes mellitus with multiple complications: Code(s): E11.8 - Type 2 diabetes mellitus with unspecified complications Status: Chronic Assessment and Plan: follow Accu-Cheks glycemic control per hospitalists I will continue to follow patient with you while he remains hospitalized and make further recommendations as deemed necessary. Thank you for allowing me to participate in care this patient. History of Present Illness Reason for Consult Consult date: 10/29/23 Reason for consult: end stage renal disease Chief Complaint Chief complaint: epistaxis and melena,anemia History of Present Illness Narrative: The patient is a 58-year-old male with a past medical history as outlined below who presented to [facility] Emergency Room via EMS from his nursing facility for further evaluation of a possible GI bleed. The patient states that following his dialysis treatment yesterday he developed a nosebleed that lasted the majority of the day. It eventually seem to subside but then this morning, the bleeding recurred. With the ongoing bleeding he started feeling nauseated and reports having episodes of coughing which resulted in coffee-ground emesis. Furthermore, he are dark malate ext too low as well. The nursing staff felt that this may be a possible GI bleed and so he was transferred to the emergency room for further assessment Workup and evaluation emergency room demonstrated the patient be hemodynamically stable and routine blood test demonstrated his CBC with Luiz drop in his hemoglobin and hematocrit but his chemistry was consistent with his known history of end-stage renal disease. He continues to have epistaxis in the emergency room and Dr. Salazar /ear nose and throat was consulted for further assessment. He subsequently underwent a left-sided endoscopic cauterization of the middle left turbinate and the bleeding apparently was controlled following this intervention. However, given the drop in his hemoglobin hematocrit and a concern that there still may be a possible GI bleed even though it is felt that the epistaxis probably prompted the coffee-ground emesis and melena. The patient reported no other acute issues or complaints other than the nose bleeding that led to his presentation to the emergency room. He was subsequently admitted to the hospital for further evaluation and therapy. Renal consultation was requested due to his end-stage renal disease. The patient normally dialyzes on a Saturday, Saturday, Saturday dialysis schedule at [facility] under the care of Dr. Jimmie Almodovar As mentioned above, he did receive his full dialysis treatment yesterday prior to his presentation to the emergency room. As far as I am aware, there were no issues or problems during his dialysis treatment yesterday. He is due for dialysis tomorrow. Currently, at the time my visit, he appears to be in no distress. Review of Systems Review of Systems: As per HPI. [facility] Past Medical History Medical History Anemia of chronic disease Anxiety and depression Arthritis Combined systo
[2023-10-29 19:33] LABS: Hematocrit 29.6 % (42.0-52.0); Hemoglobin 9.3 g/dL (14.0-18.0)
[2023-10-29 19:40] LABS: Hematocrit 29.2 % (42.0-52.0); Hemoglobin 9.2 g/dL (14.0-18.0)
[2023-10-29 21:43] LABS: Glucose Point of Care 128 mg/dl (65-105)
[2023-10-29 22:21] LABS: Glucose Point of Care 118 mg/dl (65-105)
--- NOTE | 2023-10-29 22:44 | ADMGEN ---
This patient, Kobi Salter, was admitted to IMU Room 201-01. Patient/family oriented to hospital policies and general routines including ID bracelet, bed and alarms, visiting hours, pain management, procedures, bathroom and other care routines, personal items, smoking policy, room service/diet, and visiting hours. Information on how to activate the Rapid Response Team has been discussed. Patient/Family are encouraged to report perceived risks to care and to ask questions if they do not understand what they are told or what they should do.
[2023-10-29 23:26] LABS: Hematocrit 28.6 % (42.0-52.0)
[2023-10-29 23:48] LABS: Anion Gap 8 mmol/L (8-16); Blood Urea Nitrogen 70 mg/dL (9-20); Calcium 8.1 mg/dL (8.4-10.2); Carbon Dioxide 27 mmol/L (22-30); Chloride 105 mmol/L (98-107); Estimated CRCL calculation 15 ml/min; Estimated Glomerular Filt Rate 11; Glucose 123 mg/dL (65-110); Potassium 4.5 mmol/L (3.4-5.0); Sodium 140 mmol/L (137-145)
[2023-10-30] VITALS (28 sets, daily range): BP systolic 116–140; BP diastolic 43–63; PULSE 43–128; RESP 12–18; TEMP 35.9–37.2; O2SAT 96–100
[2023-10-30 04:32] LABS: Basophils Percent Auto 0.8 % (0.2-1.2); Eosinophils Absolute Auto 0.1 K/mm3 (0-0.3); Eosinophils Percent Auto 2.9 % (0-4.4); Hematocrit 28.4 % (42.0-52.0); Immature Granulocyte Absolute 0.02 K/mm3 (0.00-0.031); Immature Granulocyte Percent A 0.4 % (0-0.5); Immature Platelet Fraction Pct 4.8 % (0.9-11.2); Lymphocytes Absolute Auto 0.73 K/mm3 (0.9-3.2); Lymphocytes Percent Auto 14.9 % (18.3-44.2); Mean Corpuscular HGB Conc 31.7 g/dl (32-36); Mean Corpuscular Hemoglobin 30.3 pg (26-34); Mean Corpuscular Volume 95.6 fl (80-100); Mean Platelet Volume 12.6 fl (7.4-10.4); Monocytes Absolute Auto 0.5 K/mm3 (0.1-0.6); Neutrophils Absolute Auto 3.5 K/mm3 (1.3-6.7); Platelet Count Result 98 k/mm3 (150-375); Red Blood Count 2.97 M/mm3 (4.6-6.20); Red Cell Distribution Width 17.1 % (11.5-14.5); White Blood Count 4.9 K/mm3 (4.5-10.0)
[2023-10-30 04:41] LABS: Anion Gap 4 mmol/L (8-16); Blood Urea Nitrogen 75 mg/dL (9-20); Calcium 8.3 mg/dL (8.4-10.2); Carbon Dioxide 31 mmol/L (22-30); Chloride 106 mmol/L (98-107); Estimated CRCL calculation 15 ml/min; Estimated Glomerular Filt Rate 11; Glucose 111 mg/dL (65-110); Potassium 4.6 mmol/L (3.4-5.0); Sodium 141 mmol/L (137-145)
[2023-10-30 04:54] LABS: Anisocytosis 1+ (NORMAL); Hypochromasia 1+ (NORMAL); Ovalocytes 1+ (NORMAL); Platelet Estimate Decreased (Adequate); Schistocytes None Seen (NORMAL)
[2023-10-30 05:17] LABS: Hepatitis B Surface Antigen Negative (Negative)
[2023-10-30 05:34] LABS: Hepatitis B Surface Anti Res Negative
[2023-10-30] MEDS: ACIDOPHILUS/BULGARICUS CHEWABLE TABLET 1 TABLET PO ×3 (08:36→17:37)
[2023-10-30] MEDS: SEVELAMER CARBONATE 800 MG TABLET 1600 MG PO ×3 (08:36→17:37)
[2023-10-30] MEDS: OMEGA 3 POLYUNSAT FATTY ACIDS 1 GM CAP PO (08:37)
[2023-10-30] MEDS: methocarbamoL 500 MG TABLET PO ×3 (08:38→17:37)
[2023-10-30] MEDS: MIDODRINE HCL 10 MG TABLET PO ×2 (08:38→17:36)
[2023-10-30] MEDS: MULTIVITAMINS THERAPEUTIC TAB (*BKC) 1 TABLET PO (08:38)
[2023-10-30] MEDS: TAMSULOSIN HCL 0.4 MG CAPSULE PO (08:38)
[2023-10-30] MEDS: SERTRALINE HCL 50 MG TABLET PO (08:38)
[2023-10-30] MEDS: PANTOPRAZOLE 40 MG TABLET PO (08:38)
[2023-10-30] MEDS: FOLIC ACID 1 MG TABLET PO (08:38)
[2023-10-30 08:39] LABS: Glucose Point of Care 92 mg/dl (65-105)
--- NOTE | 2023-10-30 11:15 | PM.PNNEP ---
Progress Note: A&P Assessment and Plan (1) ESRD (end stage renal disease): Code(s): N18.6 - End stage renal disease Status: Chronic Assessment and Plan: HD today continue M/W/F schedule while hospitalized follow electrolytes, volume status, and clearance (2) Left-sided epistaxis: Code(s): R04.0 - Epistaxis Status: Acute Assessment and Plan: present all day on the day prior to admission and recurred on day of admission s/p cauterization of left middle turbinate by ENT in ER complicated by coffee ground emesis and melena PRBC transfusion in ER follow H/H (3) Anemia: Code(s): D64.9 - Anemia, unspecified Status: Chronic Assessment and Plan: due to ESRD and worsened by #2 Epogen with HD follow trend of H/H (4) Diabetes mellitus with multiple complications: Code(s): E11.8 - Type 2 diabetes mellitus with unspecified complications Status: Chronic Assessment and Plan: follow Accu-Cheks glycemic control per hospitalists Will continue to follow. Subjective Date/time seen: 10/30/23 11:15 Interval history: Follow-up for end stage renal disease on hemodialysis. Tolerating hemodialysis treatment at the time of my visit (seen on HD at 11:05AM); no new issues or concerns to report; feels reasonably well and in no distress; breathing/respiratory status stable; no other events overnight or earlier this morning. Exam Narrative: General: WD/WN male in NAD Heart: normal S1 and S2; no rub Lungs: clear anteriorly; dereased at bases Abdomen: soft, nontender, nondistended, positive bowel sounds; s/p bilateral BKAs Extremities: no cyanosis or clubbing; no edema Skin: warm and dry Objective Data Vital Signs Vital Signs: Vital Signs Temp Pulse Resp BP Pulse Ox O2 Del Method 10/30/23 11:15 47 L 125/53 L 10/30/23 11:00 46 L 124/52 L 10/30/23 10:45 47 L 124/58 L 10/30/23 10:30 47 L 116/54 L 10/30/23 10:15 48 L 122/51 L 10/30/23 10:00 48 L 128/53 L 10/30/23 09:45 47 L 129/55 L 10/30/23 09:36 49 L 123/56 L 10/30/23 09:20 97.2 F L 50 L 12 121/60 10/30/23 10:00 52 L 10/30/23 08:00 51 L 10/30/23 08:00 99 Room Air 10/30/23 08:25 99 Room Air 10/30/23 08:00 97.6 F 48 L 18 126/55 L 96 10/30/23 04:00 Room Air 10/30/23 06:00 43 L 10/30/23 04:00 55 L 10/30/23 04:53 98.1 F 57 L 18 127/50 L 97 10/30/23 02:00 54 L 10/30/23 00:00 54 L 10/29/23 23:40 97.8 F 54 L 16 125/47 L 95 10/29/23 21:55 98.2 F 44 L 16 130/39 L 99 10/29/23 19:37 45 L 12 127/49 L 96 Intake/Output Intake/Output: Intake & Output 10/27/23 10/28/23 10/29/23 10/30/23 23:59 23:59 23:59 23:59 Intake Total 1834 250 Output Total 1000 Balance 1834 -750 Meds/Results Medications: Active Medications Generic Name Dose Route Start Last Admin Trade Name Phillipq PRN Reason Stop Dose Admin Acetaminophen 650 mg 10/29/23 18:03 Acetaminophen 325 Mg Tablet PO Q6H PRN Mild Pain (1-3) or Fever Atorvastatin Calcium 40 mg 10/30/23 21:00 Atorvastatin 40 Mg Tablet PO HS SALVADOR Dextrose 12.5 gm 10/29/23 18:03 Dextrose 50% 25 Gm/50 Ml Syringe IV PUSH PRN PRN Hypoglycemia Protocol Epoetin Bradford-epbx 10,000 units 10/30/23 20:00 10/30/23 11:59 Epoetin Bradford-Epbx 10,000 Units/Ml Vial IV PUSH 10/30/23 20:01 10,000 units ONCE ONE Administration Ferrous Sulfate 325 mg 10/30/23 12:00 10/30/23 13:59 Ferrous Sulfate [address] PO 325 mg DAILY@1200 SALVADOR Administration Fish Oil 1 gm 10/30/23 09:00 10/30/23 08:37 [place] 3 Polyunsat Fatty Acids 1 Gm Cap PO 1 gm DAILY SALVADOR Administration Folic Acid 1 mg 10/30/23 09:00 10/30/23 08:38 Folic Acid 1 Mg Tablet PO 1 mg DAILY SALVADOR Administration Gabapentin 200 mg 10/30/23 21:00
[2023-10-30] MEDS: EPOETIN ALFA-EPBX 10,000 UNITS/ML VIAL 10000 UNITS IV PUSH (11:59)
[2023-10-30 12:24] LABS: Hematocrit 25.8 % (42.0-52.0); Hemoglobin 8.2 g/dL (14.0-18.0)
[2023-10-30] MEDS: FERROUS SULFATE 325 MG TABLET DR PO (13:59)
[2023-10-30 14:18] LABS: Glucose Point of Care 91 mg/dl (65-105)
--- NOTE | 2023-10-30 15:37 | PC.NURSE ---
This patient, Kobi Salter, was received from IMU on 10/30/23 at 1350. Patient/family oriented to unit policies and routines
--- NOTE | 2023-10-30 15:39 | PC.NURSE ---
medication late. received pt from IMU with noon meds already late. gave pt meds when he arrived on unit.
[2023-10-30 16:22] LABS: Glucose Point of Care 114 mg/dl (65-105)
--- NOTE | 2023-10-30 17:54 | WPDGICN ---
Assessment and Plan Assessment and plan (1) Melena: Code(s): K92.1 - Melena Status: Acute Assessment and Plan: probably source if epistaxis but given risk factors (DM with known CAD and comorbidities), will do EGD in am to rule out GI source of bleeding (2) Epistaxis: Code(s): R04.0 - Epistaxis Status: Acute Assessment and Plan: already treated (3) Coffee ground emesis: Code(s): K92.0 - Hematemesis Status: Acute Assessment and Plan: egd in am (4) Type 2 diabetes mellitus: Code(s): E11.9 - Type 2 diabetes mellitus without complications Status: Acute (5) Coronary artery disease: Code(s): I25.10 - Atherosclerotic heart disease of [place] coronary artery without angina pectoris Status: Acute (6) End-stage renal disease on hemodialysis: Code(s): N18.6 - End stage renal disease; Z99.2 - Dependence on renal dialysis Status: Acute (7) Below knee amputation: Code(s): S88.119A - Complete traumatic amputation at level between knee and ankle, unspecified lower leg, initial encounter Status: Acute (8) Acute on chronic anemia: Code(s): D64.9 - Anemia, unspecified Status: Acute GI Consult Note Consult date/time: 10/30/23 17:54 Reason for consult: epistaxis, n/v HPI: Kobi Salter is a 58 year old male with end-stage renal disease on hemodialysis, chronic anemia hgb ~ 9, combined systolic and diastolic congestive heart failure, coronary artery disease, hypertension, hyperlipidemia type 2 diabetes mellitus, bilateral amputee who presented to the emergency department via EMS from [facility] for evaluation bleeding. He developed large amount of epistaxis after his dialysis but then also had emesis with coffee ground material and had dark tarry stool. ENT evaluated patient and he was admitted, he is doing ok now, repeat hgb 7.3, never had egd. Patient underwent left-sided endoscopic complex cautery of the middle turbinate and bleeding is now controlled.? Review of Systems Constitutional: Constitutional: Denies weakness Eyes: Eyes: Denies blurry vision ENT: Reports Normal hearing present and Reports epistaxis Cardiovascular: Cardiovascular: Denies chest pain Respiratory: Respiratory: Denies cough Gastrointestinal: Gastrointestinal: Reports melena and Reports vomiting Genitourinary: Comments: on dialysis Musculoskeletal: Musculoskeletal: Denies neck pain Integumentary/Breasts: Skin/Breast: Denies rash Neurologic: Denies Abnormal speech present Psychiatric: Psychiatric: Denies behavioral changes [facility] Past Medical History Medical History (Updated 10/30/23 @ 17:59 by Rakan Mary MD) Acute on chronic anemia Anemia of chronic disease Anxiety and depression Arthritis Coffee ground emesis Combined systolic and diastolic congestive heart failure Coronary artery disease History of multiple stents and 4 vessel bypass. Diabetic nephropathy Diabetic neuropathy Diabetic peripheral neuropathy End-stage renal disease on hemodialysis Hyperlipidemia Obstructive sleep apnea does not use a CPAP Paroxysmal atrial fibrillation Transient atrial fibrillation following bypass surgery. Type 2 diabetes mellitus Surgical History Surgical History History of amputation of toe Left 5th toe 2013 small toe on the right amputated History of cardiac catheterization History of cataract extraction with lens replacement History of coronary artery stent placement History of left below knee amputation History of quadruple bypass (2017) 2018 at [facility] 5 vessel CABG Family History Family History Sibling Patient's sister is Diabetes mellitus Sister Acute myocardial infarction Three brothers and 2 sisters History of blood cl
--- NOTE | 2023-10-30 18:08 | PM.IMPN ---
Progress Note: A&P Assessment and Plan (1) Left-sided epistaxis: Code(s): R04.0 - Epistaxis Status: Acute (2) Melena: Code(s): K92.1 - Melena Status: Acute (3) Acute on chronic blood loss anemia: Code(s): D62 - Acute posthemorrhagic anemia Status: Acute (4) End-stage renal disease on hemodialysis: Code(s): N18.6 - End stage renal disease; Z99.2 - Dependence on renal dialysis Status: Acute (5) Coronary artery disease: Code(s): I25.10 - Atherosclerotic heart disease of [place] coronary artery without angina pectoris Status: Acute (6) Type 2 diabetes mellitus: Code(s): E11.9 - Type 2 diabetes mellitus without complications Status: Acute (7) Hypertension: Code(s): I10 - Essential (primary) hypertension Status: Acute (8) Combined systolic and diastolic congestive heart failure: Code(s): I50.40 - Unspecified combined systolic (congestive) and diastolic (congestive) heart failure Status: Acute Plan Patient placed under observation status Patient is status post cauterization of left middle turbinate by ENT on 10/29/2023 with complete resolution of epistaxis H&H remained stable hence will discontinue serial H&Hs Spoke with gauge and weigh machine adjuster who plan to do an EGD in a.m. Keep patient NPO after midnight except meds Patient tolerated hemodialysis well today Follow-up closely with Nephrology DC planning back to snf in a.m. after EGD and GI clearance ? Patient seen and examined at bedside during my morning rounds ? Collaborated with patient's nurse at the bedside in detail and addressed all concerns ? Labs, electrolytes, radiology, investigations and test results reviewed ? Consult/Nursing/Ancilliary notes on the chart reviewed and appreciated ? Spoke with patient/family at the bedside and answered all the questions that they had Repeat labs in a.m. Electrolyte replacement as per protocol. Patient will be monitored very closely on the floor. Further recommendations as per the hospital course. Time Spent With Patient Time with patient: 15 - 25 minutes Subjective Date/time seen: 10/30/23 18:08 Interval history: Patient seen in the hemodialysis suite during my morning rounds. Bleeding from nose has stopped. He feels weak and tired. Review of Systems Review of Systems: Twelve systems were reviewed and are negative except for as per HPI. Exam Narrative: General: Chronically ill-appearing gentleman in the semi-Kirk position in bed. Weight: 91.2 kg. BMI: 27.3. HEENT: PERRL, EOMI. Sclera anicteric. Dry blood in the nares. Moist mucous membranes. Neck: Supple. Respiratory: Respirations are nonlabored and lungs are clear to auscultation. Cardiovascular: Bradycardic in the 50s with S1-S2. Gastrointestinal: Abdomen is soft, obese, nontender, and nondistended with positive bowel sounds. Skin: Warm and dry. Generalized pallor. Extremities: No cyanosis or clubbing. Right upper extremity fistula with palpable thrill in October. Status post bilateral [id number] amputations. Neurological: Alert. Cranial nerves 2-12 are grossly intact. Generalized weakness without gross focal findings. Psychiatric: Appropriate mood and affect. Objective Data Vital Signs Vital Signs: Vital Signs - 24 hr 10/29/23 19:37 10/29/23 21:55 10/29/23 23:40 Temperature 36.8 C 36.6 C Pulse Rate 45 L 44 L 54 L Respiratory Rate 12 16 16 Blood Pressure 127/49 L 130/39 L 125/47 L Pulse Oximetry 96 99 95 Oxygen Delivery 10/30/23 00:00 10/30/23 02:00 10/30/23 04:53 Temperature 36.7 C Pulse Rate 54 L 54 L 57 L Respiratory Rate 18 Blood Pressure 127/50 L Pulse Oximetry 97 Oxygen Delivery 10/30/23 04:00 10/30/23 06:00 10/30/23 04:00 Temperature Pulse Rate 55 L 43 L Respiratory Rate Blood Pressure Pulse Oximetry Oxygen Delivery Room Air 10/30/23 08:00 10/30/23 08:25 10/30/23 08:00 T
[2023-10-30] MEDS: ATORVASTATIN 40 MG TABLET PO (20:33)
[2023-10-30] MEDS: GABAPENTIN 100 MG CAPSULE 200 MG PO (20:33)
[2023-10-30] MEDS: MIRTAZAPINE 15 MG TABLET PO (20:33)
[2023-10-30 21:49] LABS: Glucose Point of Care 150 mg/dl (65-105)
[2023-10-31] VITALS (7 sets, daily range): BP systolic 122–145; BP diastolic 44–54; PULSE 46–102; RESP 15–76; TEMP 35.9–36.2; O2SAT 99–100
[2023-10-31 06:41] LABS: Basophils Percent Auto 0.8 % (0.2-1.2); Eosinophils Absolute Auto 0.2 K/mm3 (0-0.3); Eosinophils Percent Auto 4.3 % (0-4.4); Hematocrit 29.1 % (42.0-52.0); Hemoglobin 8.6 g/dL (14.0-18.0); Immature Granulocyte Absolute 0.02 K/mm3 (0.00-0.031); Immature Granulocyte Percent A 0.4 % (0-0.5); Lymphocytes Absolute Auto 0.81 K/mm3 (0.9-3.2); Mean Corpuscular HGB Conc 29.6 g/dl (32-36); Mean Corpuscular Hemoglobin 30.2 pg (26-34); Mean Corpuscular Volume 102.1 fl (80-100); Mean Platelet Volume 11.9 fl (7.4-10.4); Monocytes Absolute Auto 0.7 K/mm3 (0.1-0.6); Monocytes Percent Auto 13.6 % (2.6-8.5); Neutrophils Absolute Auto 3.3 K/mm3 (1.3-6.7); Neutrophils Percent Auto 64.9 % (45.5-73.1); Platelet Count Result 102 k/mm3 (150-375); Red Blood Count 2.85 M/mm3 (4.6-6.20); Red Cell Distribution Width 17.6 % (11.5-14.5); White Blood Count 5.1 K/mm3 (4.5-10.0)
[2023-10-31 06:57] LABS: Anion Gap 5 mmol/L (8-16); Blood Urea Nitrogen 41 mg/dL (9-20); Calcium 8.1 mg/dL (8.4-10.2); Carbon Dioxide 29 mmol/L (22-30); Chloride 107 mmol/L (98-107); Estimated CRCL calculation 22 ml/min; Estimated Glomerular Filt Rate 17; Glucose 109 mg/dL (65-110); Phosphorus 2.8 mg/dL (2.5-4.5); Potassium 4.1 mmol/L (3.4-5.0); Sodium 141 mmol/L (137-145)
[2023-10-31 07:33] LABS: Platelet Estimate Decreased (Adequate)
[2023-10-31 07:34] LABS: Anisocytosis 1+ (NORMAL); Hypochromasia 1+ (NORMAL); Ovalocytes 1+ (NORMAL); Schistocytes None Seen (NORMAL)
[2023-10-31 07:59] LABS: Glucose Point of Care 94 mg/dl (65-105)
[2023-10-31] MEDS: OMEGA 3 POLYUNSAT FATTY ACIDS 1 GM CAP PO (08:40)
[2023-10-31] MEDS: LIDOCAINE 5% PATCH 1 PATCH TOPICAL (08:40)
[2023-10-31] MEDS: TAMSULOSIN HCL 0.4 MG CAPSULE PO (08:41)
[2023-10-31] MEDS: PANTOPRAZOLE 40 MG TABLET PO (08:41)
[2023-10-31] MEDS: FOLIC ACID 1 MG TABLET PO (08:41)
[2023-10-31] MEDS: MULTIVITAMINS THERAPEUTIC TAB (*BKC) 1 TABLET PO (08:41)
[2023-10-31] MEDS: ACIDOPHILUS/BULGARICUS CHEWABLE TABLET 1 TABLET PO ×2 (08:41→16:45)
[2023-10-31] MEDS: methocarbamoL 500 MG TABLET PO ×2 (08:41→16:45)
[2023-10-31] MEDS: MIDODRINE HCL 10 MG TABLET PO ×2 (08:41→16:45)
[2023-10-31] MEDS: SERTRALINE HCL 50 MG TABLET PO (08:41)
[2023-10-31] MEDS: SEVELAMER CARBONATE 800 MG TABLET 1600 MG PO ×2 (08:41→16:45)
[2023-10-31 09:04] LABS: Iron 81 ug/dL (49-181)
[2023-10-31 09:14] LABS: Percent Iron Saturation 47 % (20-50)
[2023-10-31 10:11] LABS: Folic Acid 14.9 ng/mL (2.76->20)
[2023-10-31 11:35] LABS: Glucose Point of Care 121 mg/dl (65-105)
--- NOTE | 2023-10-31 12:05 | WPDANESEPPF ---
Anes - Initial Pre Proc Eval Procedure: Operation Date: 10/31/23 12:30 Proposed Procedures p Esophagogastroduodenoscopy - Rakan Mary MD Date/Time: 10/31/23 12:05 Surgeon: Chris Dickerson MD Pre Op Diagnosis: epistaxis and melena,anemia Patient Data Age: 58 Gender: M Height: 1.83 m Weight: 84.8 kg Last Vital Signs Temp 35.9 C L 10/31/23 12:01 Pulse 56 L 10/31/23 12:01 Resp 16 10/31/23 12:01 BP 125/48 L 10/31/23 12:01 Pulse Ox 99 10/31/23 12:01 O2 Del Method Room Air 10/31/23 12:01 Allergies Allergy/AdvReac Type Severity Reaction Status Date / Time Penicillins Allergy Unknown Unknown Verified 10/31/23 11:58 bee venom protein (honey bee) Allergy Swelling Verified 10/31/23 11:58 Home Medications Medication Instructions Recorded Confirmed Type ferrous sulfate 325 mg (65 mg 325 mg PO DAILY 06/01/20 10/29/23 History iron) tablet multivitamin 1 tablet PO DAILY 06/01/20 10/29/23 History nitroglycerin 0.4 mg sublingual 0.4 mg sublingual Q5-15M PRN Chest 06/01/20 10/29/23 History tablet Pain omega-3 fatty acids-fish oil 360 1 cap PO DAILY 06/01/20 10/29/23 History mg-1,200 mg capsule atorvastatin 40 mg tablet (Lipitor) 40 mg PO HS 12/23/20 10/29/23 History folic acid 1 mg tablet 1 mg PO DAILY 12/23/20 10/29/23 History gabapentin 100 mg tablet 200 mg PO HS 12/23/20 10/29/23 History sevelamer carbonate 800 mg tablet 1,600 mg PO TID 12/23/20 10/29/23 History tamsulosin 0.4 mg capsule (Flomax) 0.4 mg PO DAILY 12/23/20 10/29/23 History linagliptin 5 mg tablet (Tradjenta) 5 mg PO DAILY 01/13/23 10/29/23 History mirtazapine 15 mg tablet 15 mg PO HS 01/13/23 10/29/23 History sertraline 50 mg tablet 50 mg PO DAILY 01/13/23 10/29/23 History Lactobacillus acidophilus 100 mmu cells PO TID 09/17/23 10/29/23 History aspirin 81 mg tablet 81 mg PO DAILY 09/17/23 10/29/23 History lidocaine 4 % topical cream 1 applic topical DAILY 09/17/23 10/29/23 History meclizine 25 mg tablet 25 mg PO Q8H PRN Dizziness 09/17/23 10/29/23 History midodrine 10 mg tablet 10 mg PO BID 09/17/23 10/29/23 History omeprazole 20 mg capsule,delayed 20 mg PO DAILY 09/17/23 10/29/23 History release oxycodone 5 mg tablet 5 mg PO Q4H PRN Pain (Scale Score 09/17/23 10/29/23 History 7-10) diphenoxylate-atropine 2.5 2 tablet PO TID PRN Diarrhea 09/18/23 10/29/23 History mg-0.025 mg tablet (Lomotil) acetaminophen 325 mg tablet 650 mg PO Q6H PRN Pain (Scale 10/29/23 10/29/23 History (Tylenol) Score 1-3) lidocaine 3 % topical cream 1 applic topical DAILY PRN before 10/29/23 10/29/23 History dialysis methocarbamol 500 mg tablet 500 mg PO TID 10/29/23 10/29/23 History naloxone 4 mg/actuation nasal spray 1 spray intranasal Q3M PRN Opioid 10/29/23 10/29/23 History Overdose sennosides 8.6 mg-docusate sodium 1 tablet PO BID PRN Constipation 10/29/23 10/29/23 History 50 mg tablet (Senna Plus) Laboratory Tests 10/30/23 10/30/23 10/30/23 12:16 13:56 16:17 WBC RBC Hgb 8.2 L g/dL (14.0-18.0) Hct 25.8 L % (42.0-52.0) MCV MCH MCHC RDW Plt Count MPV Immature Gran % (Auto) Neut % (Auto) Lymph % (Auto) Phillips % (Auto) Eos % (Auto) Baso % (Auto) Lymph # (Auto) Phillips # (Auto) Eos # (Auto) Baso # (Auto) Abs Immat Gran (auto) Absolute Neuts (auto) Absolute Nucleated RBC Nucleated RBC % Platelet Estimate Hypochromasia Anisocytosis Ovalocytes Schistocytes Sodium Potassium Chloride Carbon Dioxide Anion Gap BUN Creatinine Estim Creat Clear Calc Estimated GFR
[2023-10-31] MEDS: SODIUM CHLORIDE 0.9% IV 500 ML 10 ML IV CONT (12:13)
[2023-10-31 12:16] LABS: Glucose Point of Care 106 mg/dl (65-105)
--- NOTE | 2023-10-31 13:18 | SUR.PHASEII ---
CALLED DR VÁSQUEZ ABOUT PT'S 1ST DEGREE HEART RATE AND VITAL SIGNS. NO ORDERS RECEIVED AND PT IS GOOD TO BE TRANSFERRED BACK TO FLOOR.
--- NOTE | 2023-10-31 13:45 | PM.PNNEP ---
Progress Note: A&P Assessment and Plan (1) ESRD (end stage renal disease): Code(s): N18.6 - End stage renal disease Status: Chronic Assessment and Plan: HD tomorrow continue M/W/F schedule while hospitalized follow electrolytes, volume status, and clearance (2) Left-sided epistaxis: Code(s): R04.0 - Epistaxis Status: Acute Assessment and Plan: present all day on the day prior to admission and recurred on day of admission s/p cauterization of left middle turbinate by ENT in ER complicated by coffee ground emesis and melena results of EGD noted PRBC transfusion in ER follow H/H (3) Anemia: Code(s): D64.9 - Anemia, unspecified Status: Chronic Assessment and Plan: due to ESRD and worsened by #2 Epogen with HD follow trend of H/H (4) Diabetes mellitus with multiple complications: Code(s): E11.8 - Type 2 diabetes mellitus with unspecified complications Status: Chronic Assessment and Plan: follow Accu-Cheks glycemic control per hospitalists Will continue to follow. Subjective Date/time seen: 10/31/23 13:45 Interval history: Follow-up for end stage renal disease on hemodialysis. Tolerated hemodialysis treatment yesterday as well as EGD earlier today - findings of EGD noted; no apparent distress voiced at the time of my visit; no issue/events overnight or earlier today; H/H has been stable as well. Exam Narrative: General: WD/WN male in NAD Heart: normal S1 and S2; no rub Lungs: clear anteriorly; dereased at bases Abdomen: soft, nontender, nondistended, positive bowel sounds; s/p bilateral BKAs Extremities: no cyanosis or clubbing; no edema Skin: warm and intact Objective Data Vital Signs Vital Signs: Vital Signs Temp Pulse Resp BP Pulse Ox O2 Del Method O2 Flow Rate 10/31/23 13:45 97 F L 50 L 16 145/50 H 99 10/31/23 13:15 49 L 18 126/53 L 100 Room Air 10/31/23 13:05 48 L 15 132/45 L 100 Room Air 10/31/23 12:55 46 L 24 H 128/51 L 100 Nasal Cannula 3 10/31/23 12:01 96.7 F L 56 L 16 125/48 L 99 Room Air 10/31/23 08:00 Room Air 10/31/23 08:01 122/54 L 10/31/23 07:45 97.2 F L 102 H 76 H 124/44 L 100 10/30/23 20:00 60 18 100 Room Air 10/30/23 20:00 99.0 F 60 18 120/43 L 100 Intake/Output Intake/Output: Intake & Output 10/28/23 10/29/23 10/30/23 10/31/23 23:59 23:59 23:59 23:59 Intake Total 1834 430 0 Output Total 1000 0 Balance 1834 -570 0 Meds/Results Medications: Active Medications Generic Name Dose Route Start Last Admin Trade Name Freq PRN Reason Stop Dose Admin Acetaminophen 650 mg 10/29/23 18:03 Acetaminophen 325 Mg Tablet PO Q6H PRN Mild Pain (1-3) or Fever Atorvastatin Calcium 40 mg 10/30/23 21:00 10/30/23 20:33 Atorvastatin 40 Mg Tablet PO 40 mg HS SALVADOR Administration Dextrose 12.5 gm 10/29/23 18:03 Dextrose 50% 25 Gm/50 Ml Syringe IV PUSH PRN PRN Hypoglycemia Protocol Ferrous Sulfate 325 mg 10/30/23 12:00 10/31/23 11:37 Ferrous Sulfate [address] PO Not Given DAILY@1200 SALVADOR Fish Oil 1 gm 10/30/23 09:00 10/31/23 08:40 [place] 3 Polyunsat Fatty Acids 1 Gm Cap PO 1 gm DAILY SALVADOR Administration Folic Acid 1 mg 10/30/23 09:00 10/31/23 08:41 Folic Acid 1 Mg Tablet PO 1 mg DAILY SALVADOR Administration Gabapentin 200 mg 10/30/23 21:00 10/30/23 20:33 Gabapentin 100 Mg Capsule PO 11/29/23 20:59 200 mg HS SALVADOR Administration Glucagon 1 mg 10/29/23 18:03 Glucagon For Inj 1 Mg Vial IM PRN PRN Hypoglycemia Protocol Glucose 15 gm 10/29/23 18:03 Glucose Oral Gel 15 Gm Of Glucse In 37.5 Gm Tube PO PRN PRN Hypoglycemia Protocol Dextrose 1,000 mls @ 100 mls/hr 10/29/23 18:03 Dextrose 5% 1,000 Ml IVPB PRN PRN Hypoglycemia Protocol Albumin H
[2023-10-31 16:31] LABS: Glucose Point of Care 135 mg/dl (65-105)
--- NOTE | 2023-10-31 16:38 | PM.DS ---
DS: Admitting Diagnosis Discharge Date 10/31/2023: Admitting Diagnosis (1) Left-sided epistaxis: ?Code(s): R04.0 - Epistaxis ?Status:?Acute (2) Melena: ?Code(s): K92.1 - Melena ?Status:?Acute (3) Acute on chronic blood loss anemia: ?Code(s): D62 - Acute posthemorrhagic anemia ?Status:?Acute (4) End-stage renal disease on hemodialysis: ?Code(s): N18.6 - End stage renal disease; Z99.2 - Dependence on renal dialysis ?Status:?Acute (5) Coronary artery disease: ?Code(s): I25.10 - Atherosclerotic heart disease of [place] coronary artery without angina pectoris ?Status:?Acute (6) Type 2 diabetes mellitus: ?Code(s): E11.9 - Type 2 diabetes mellitus without complications ?Status:?Acute (7) Hypertension: ?Code(s): I10 - Essential (primary) hypertension ?Status:?Acute (8) Combined systolic and diastolic congestive heart failure: ?Code(s): I50.40 - Unspecified combined systolic (congestive) and diastolic (congestive) heart failure ?Status:?Acute DS: Discharge Diagnosis Discharge Diagnosis (1) Acute on chronic anemia: Code(s): D64.9 - Anemia, unspecified Status: Acute (2) Coffee ground emesis: Code(s): K92.0 - Hematemesis Status: Acute (3) Coronary artery disease: Code(s): I25.10 - Atherosclerotic heart disease of [place] coronary artery without angina pectoris Status: Acute (4) Type 2 diabetes mellitus: Code(s): E11.9 - Type 2 diabetes mellitus without complications Status: Acute (5) Hyperlipidemia: Code(s): E78.5 - Hyperlipidemia, unspecified Status: Acute (6) End-stage renal disease on hemodialysis: Code(s): N18.6 - End stage renal disease; Z99.2 - Dependence on renal dialysis Status: Acute (7) Combined systolic and diastolic congestive heart failure: Code(s): I50.40 - Unspecified combined systolic (congestive) and diastolic (congestive) heart failure Status: Acute (8) Melena: Code(s): K92.1 - Melena Status: Acute (9) Left-sided epistaxis: Code(s): R04.0 - Epistaxis Status: Acute (10) Anxiety and depression: Code(s): F41.9 - Anxiety disorder, unspecified; F32.9 - Major depressive disorder, single episode, unspecified Status: Acute (11) Elevated lipids: Code(s): E78.5 - Hyperlipidemia, unspecified Status: Acute (12) CAD (coronary artery disease), autologous vein bypass graft: Qualifiers: Associated angina: without angina Qualified Code(s): I25.810 - Atherosclerosis of coronary artery bypass graft(s) without angina pectoris Code(s): I25.810 - Atherosclerosis of coronary artery bypass graft(s) without angina pectoris Status: Acute (13) Hypertension: Code(s): I10 - Essential (primary) hypertension Status: Acute (14) 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 heart failure: Code(s): I50.43 - Acute on chronic combined systolic (congestive) and diastolic (congestive) heart failure Status: Acute (15) CKD (chronic kidney disease) stage 3, GFR 30-59 ml/min: Code(s): N18.3 - Chronic kidney disease, stage 3 (moderate) Status: Chronic (16) Below-knee amputation of left lower extremity: Code(s): S88.112A - Complete traumatic amputation at level between knee and ankle, left lower leg, initial encounter Status: Inactive DS: Summary Hospital Course Reason for hospitalization: Patient sent from half-way for evaluation of possible GI bleeding Hospital Course: H&P: HPI History of Present Illness Date/Time: 10/29/23? 18:00 Chief Complaint: Possible GI bleed. Narrative: This is a 58-year-old male with end-stage renal disease on hemodialysis, chronic anemia, combined systolic and diastolic congestive heart failure, coronary artery disease, hypertension, hyperlipidemia type 2 diabetes mellitus, and oth
[2023-10-31 17:38] LABS: SARS-CoV-2 RNA PCR Negative (Negative)
== END 2023-10-31 19:05 ==
LOC: ANHED 13:00 → ANHIMU 17:53 → ANH3MEDSUR 10-30 14:10
PROVIDERS: Internal Medicine Gastroenterology; Internal Medicine Nephrology; Physician Assistant; Admitting Provider Internal Medicine; Emergency Provider Emergency Medicine; PCP Hospitalist; Visit Provider Family Medicine
PROC: 0DJ08ZZ Inspection of Upper Intestinal Tract, Via Natural or Artificial Opening Endoscopic (ICD-10-PCS; CPT 43235; principal; 2023-10-31 12:30)
DX: D62 Acute posthemorrhagic anemia (principal); R04.0 Epistaxis; K92.0 Hematemesis; K29.70 Gastritis, unspecified, without bleeding; K92.1 Melena; I13.2 Hypertensive heart and chronic kidney disease with heart failure and with stage 5 chronic kidney disease, or end stage renal disease; I50.43 Acute on chronic combined systolic (congestive) and diastolic (congestive) heart failure; E11.22 Type 2 diabetes mellitus with diabetic chronic kidney disease; N18.6 End stage renal disease; D63.1 Anemia in chronic kidney disease; Z99.2 Dependence on renal dialysis; F41.9 Anxiety disorder, unspecified; F32.A Depression, unspecified; I48.0 Paroxysmal atrial fibrillation; I25.10 Atherosclerotic heart disease of native coronary artery without angina pectoris; Z95.1 Presence of aortocoronary bypass graft; Z95.5 Presence of coronary angioplasty implant and graft; Z66 Do not resuscitate; E11.42 Type 2 diabetes mellitus with diabetic polyneuropathy; E78.5 Hyperlipidemia, unspecified; G47.33 Obstructive sleep apnea (adult) (pediatric); Z89.512 Acquired absence of left leg below knee; Z89.421 Acquired absence of other right toe(s); Z87.891 Personal history of nicotine dependence; Z79.82 Long term (current) use of aspirin; Z79.891 Long term (current) use of opiate analgesic; Z79.899 Other long term (current) drug therapy; Z83.3 Family history of diabetes mellitus; Z82.49 Family history of ischemic heart disease and other diseases of the circulatory system
CPT/HCPCS: 43235; 30903; 31238; 36415; 36430; 80048; 80053; 82607; 82728; 82746; 82948; 83540; 83550; 83735; 84100; 84443; 85014; 85018; 85025; 85055; 85610; 85730; 86706; 86850; 86900; 86901; 86923; 87340; 87635; 96360; 96361; 96374; 99285; A9270; G0257; G0378; J2704; J7030; J7040; J7050; J7120; P9016; Q5105

== ENCOUNTER 2023-12-03 09:33 | Emergency (ER) | payer MEDICARE, MEDICAID, SELFPAY ==
[2023-12-03] VITALS (12 sets, daily range): BP systolic 137–156; BP diastolic 50–71; PULSE 47–64; RESP 13–30; TEMP 36.4–36.6; O2SAT 94–97
--- NOTE | 2023-12-03 10:20 | ED.RECABL ---
HPI - Recheck/Abnormal Lab/Rx General Chief Complaint: Recheck/Abnormal Lab/Rx Stated Complaint: abn labs Time Seen by Provider: 12/03/23 10:20 Source: patient Mode of arrival: EMS History of Present Illness HPI narrative: 4 years old white male came to the emergency room from [facility] because of abnormal blood workup. Patient declined to go to dialysis yesterday, currently is asymptomatic, today would like to get the dialysis done. He denies any fever, chills, nausea, vomiting, headache, chest pain, shortness of breath, abdominal pain or back pain. Related Data Home Medications Medication Instructions Recorded Confirmed ferrous sulfate 325 mg (65 mg 325 mg PO DAILY 06/01/20 10/29/23 iron) tablet multivitamin 1 tablet PO DAILY 06/01/20 10/29/23 nitroglycerin 0.4 mg sublingual 0.4 mg sublingual Q5-15M PRN Chest 06/01/20 10/29/23 tablet Pain omega-3 fatty acids-fish oil 360 1 cap PO DAILY 06/01/20 10/29/23 mg-1,200 mg capsule atorvastatin 40 mg tablet (Lipitor) 40 mg PO HS 12/23/20 10/29/23 folic acid 1 mg tablet 1 mg PO DAILY 12/23/20 10/29/23 gabapentin 100 mg tablet 200 mg PO HS 12/23/20 10/29/23 sevelamer carbonate 800 mg tablet 1,600 mg PO TID 12/23/20 10/29/23 tamsulosin 0.4 mg capsule (Flomax) 0.4 mg PO DAILY 12/23/20 10/29/23 linagliptin 5 mg tablet (Tradjenta) 5 mg PO DAILY 01/13/23 10/29/23 mirtazapine 15 mg tablet 15 mg PO HS 01/13/23 10/29/23 sertraline 50 mg tablet 50 mg PO DAILY 01/13/23 10/29/23 Lactobacillus acidophilus 100 mmu cells PO TID 09/17/23 10/29/23 aspirin 81 mg tablet 81 mg PO DAILY 09/17/23 10/29/23 lidocaine 4 % topical cream 1 applic topical DAILY 09/17/23 10/29/23 meclizine 25 mg tablet 25 mg PO Q8H PRN Dizziness 09/17/23 10/29/23 midodrine 10 mg tablet 10 mg PO BID 09/17/23 10/29/23 omeprazole 20 mg capsule,delayed 20 mg PO DAILY 09/17/23 10/29/23 release oxycodone 5 mg tablet 5 mg PO Q4H PRN Pain (Scale Score 09/17/23 10/29/23 7-10) diphenoxylate-atropine 2.5 2 tablet PO TID PRN Diarrhea 09/18/23 10/29/23 mg-0.025 mg tablet (Lomotil) acetaminophen 325 mg tablet 650 mg PO Q6H PRN Pain (Scale 10/29/23 10/29/23 (Tylenol) Score 1-3) lidocaine 3 % topical cream 1 applic topical DAILY PRN before 10/29/23 10/29/23 dialysis methocarbamol 500 mg tablet 500 mg PO TID 10/29/23 10/29/23 naloxone 4 mg/actuation nasal spray 1 spray intranasal Q3M PRN Opioid 10/29/23 10/29/23 Overdose sennosides 8.6 mg-docusate sodium 1 tablet PO BID PRN Constipation 10/29/23 10/29/23 50 mg tablet (Senna Plus) Allergies Allergy/AdvReac Type Severity Reaction Status Date / Time Penicillins Allergy Unknown Unknown Verified 12/03/23 09:43 bee venom protein (honey bee) Allergy Swelling Verified 12/03/23 09:43 Review of Systems Review of Systems: All systems reviewed & are unremarkable except as noted in HPI and below PMFSH Past Medical History Medical History Acute on chronic anemia Anemia of chronic disease Anxiety and depression Arthritis Coffee ground emesis Combined systolic and diastolic congestive heart failure Coronary artery disease History of multiple stents and 4 vessel bypass. Diabetic nephropathy Diabetic neuropathy Diabetic peripheral neuropathy End-stage renal disease on hemodialysis Hyperlipidemia Obstructive sleep apnea does not use a CPAP Paroxysmal atrial fibrillation Transient atrial fibrillation following bypass surgery. Type 2 diabetes mellitus Surgical History Surgical History History of amputation of toe Left 5th toe 2013 small toe on the right amputated History of cardiac catheterization History of cataract extraction with lens replacement History of coronary artery stent placement History of left below knee amputation History of quadruple bypass (2017) 2018 at [facility] 5 vessel CABG Family History Family History (Reviewed
[2023-12-03 10:33] LABS: INR 1.4; Prothrombin Time 18.5 Seconds (11.1-14.7)
[2023-12-03 10:34] LABS: Partial Thromboplastin Time 39.7 Seconds (22.3-36.8)
[2023-12-03 10:36] LABS: Alanine Aminotransferase 13 U/L (6-50); Alkaline Phosphatase 314 U/L (38-126); Anion Gap 8 mmol/L (4-12); Aspartate Amino Transferase 20 U/L (17-59); Bilirubin,Total 1.3 mg/dL (0.2-1.3); Blood Urea Nitrogen 65 mg/dL (9-20); Calcium 8.3 mg/dL (8.4-10.2); Carbon Dioxide 27 mmol/L (22-30); Chloride 101 mmol/L (98-107); Estimated CRCL calculation 9 ml/min; Estimated Glomerular Filt Rate 6; Glucose 93 mg/dL (65-110); Potassium 5.3 mmol/L (3.4-5.0); Sodium 136 mmol/L (137-145)
[2023-12-03 11:04] LABS: Basophils Absolute Auto 0.1 K/mm3 (0.0-0.1); Basophils Percent Auto 1.3 % (0.2-1.2); Eosinophils Absolute Auto 0.1 K/mm3 (0-0.3); Eosinophils Percent Auto 2.9 % (0-4.4); Hematocrit 31.5 % (42.0-52.0); Hemoglobin 9.7 g/dL (14.0-18.0); Immature Granulocyte Absolute 0.01 K/mm3 (0.00-0.031); Immature Granulocyte Percent A 0.3 % (0-0.5); Lymphocytes Absolute Auto 0.45 K/mm3 (0.9-3.2); Lymphocytes Percent Auto 11.9 % (18.3-44.2); Mean Corpuscular HGB Conc 30.8 g/dl (32-36); Mean Corpuscular Hemoglobin 31.1 pg (26-34); Mean Platelet Volume 13.9 fl (7.4-10.4); Monocytes Absolute Auto 0.4 K/mm3 (0.1-0.6); Monocytes Percent Auto 9.8 % (2.6-8.5); Neutrophils Absolute Auto 2.8 K/mm3 (1.3-6.7); Neutrophils Percent Auto 73.8 % (45.5-73.1); Platelet Count Result 92 k/mm3 (150-375); Red Blood Count 3.12 M/mm3 (4.6-6.20); Red Cell Distribution Width 15.9 % (11.5-14.5); White Blood Count 3.8 K/mm3 (4.5-10.0)
[2023-12-03 11:56] LABS: Hepatitis B Surface Antigen Negative (Negative)
[2023-12-03 12:02] LABS: HAV RESULT Negative (Negative); Hepatitis B Core IgM Result Negative (Negative)
[2023-12-03 12:14] LABS: Hepatitis C Virus Antibody Negative (Negative)
== END 2023-12-03 13:17 ==
PROVIDERS: Emergency Provider Emergency Medicine; PCP Hospitalist
DX: R79.9 Abnormal finding of blood chemistry, unspecified (principal); Z99.2 Dependence on renal dialysis; Z91.158 Patient's noncompliance with renal dialysis for other reason; F41.8 Other specified anxiety disorders; I25.10 Atherosclerotic heart disease of native coronary artery without angina pectoris; E11.22 Type 2 diabetes mellitus with diabetic chronic kidney disease; N18.6 End stage renal disease; E78.5 Hyperlipidemia, unspecified; G47.33 Obstructive sleep apnea (adult) (pediatric); Z87.891 Personal history of nicotine dependence; D64.9 Anemia, unspecified
CPT/HCPCS: 36415; 80053; 80074; 85025; 85055; 85610; 85730; 99283

== ENCOUNTER 2024-01-13 10:03 | Inpatient (IN) | payer MEDICARE, MEDICAID, SELFPAY ==
[2024-01-13] VITALS (27 sets, daily range): BP systolic 89–142; BP diastolic 41–66; PULSE 44–69; RESP 10–18; TEMP 36.3–37; O2SAT 93–97; BMI 28.7
--- NOTE | ~2024-01-13 | CT_ITS ---
EXAMINATION: CT brain wo con DATE: 01/13/2024 11:02 INDICATION: Head injury TECHNIQUE: Computed tomography (CT) of the head was performed without intravenous contrast. Sagittal and coronal reconstructions were performed. The mA was adjusted according to patient size. Iterative reconstruction technique was employed. The dose-length product was 681.00 mGy-cm. COMPARISON: head CT dated 05/18/20 FINDINGS: Left occipital scalp contusion. No fracture. No acute intracranial hemorrhage, acute infarction or ab normal extra axial fluid collection. Small foci of encephalomalacia in the right frontal lobe and ant erior right insula consistent with sequela of old infarcts. There is mild scattered white matter hypo attenuation consistent with chronic small vessel ischemic disease. Symmetric prominence of the sulci consistent with mild age-appropriate diffuse cerebral volume loss. Ventricles are normal and symmetri c. No mass/mass effect. Intracranial calcified cerebral atherosclerosis is noted. Changes of left int raocular lens replacement. The orbits, paranasal sinuses and mastoid air cells are normal. IMPRESSION: 1. No fracture or acute intracranial process. 2. 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 Reviewed, dictated and finalized at location B. IMPRESSION: 1. No fracture or acute intracranial process. 2. 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
--- NOTE | ~2024-01-13 | XR_ITS ---
EXAMINATION: XR chest 1V portable DATE: 01/13/2024 11:12 INDICATION: Trauma. Dialysis. TECHNIQUE: A single frontal view of the chest was obtained. COMPARISON: Chest single view 09/16/2023, CT abdomen and pelvis 02/07/2023 FINDINGS: The patient is rotated to his left. There are interstitial opacities in the mid and lower l atif zones. No pleural effusion or pneumothorax. Cardiomegaly is noted. Median sternotomy wires and me diastinal surgical clips are seen, likely from prior coronary artery bypass grafting. IMPRESSION: 1. Interstitial opacities in the mid and lower lung zones, consistent with mild atelectasis versus mi ld pulmonary edema. 2. Cardiomegaly. Reviewed, dictated and finalized at location A. IMPRESSION: 1. Interstitial opacities in the mid and lower lung zones, consistent with mild atelectasis versus mild pulmonary edema. 2. Cardiomegaly.
--- NOTE | ~2024-01-13 | CT_ITS ---
EXAMINATION: CT cervical spine wo con DATE: 01/13/2024 11:02 INDICATION: Fall with head injury TECHNIQUE: Computed tomography (CT) of the cervical spine was performed without intravenous contrast. Automated exposure control and iterative reconstruction technique were employed. The dose-length pro duct was 563.97 mGy-cm. COMPARISON: None FINDINGS: Alignment is normal. Vertebral body heights are normal. No fractures. Increased lucency with thickene d trabecular pattern at the right posterior aspect of the C3 vertebral body extending into the right sided posterior elements most likely representing a hemangioma although differential would include Pa get's disease. Mild disc height loss at C4-C5 through C6-C7 as well as at T1-T2 and T2-T3. Disc bulge contributing mild central canal stenosis at C3-C4, C5-C6 and C6-C7. There is multilevel mild cervica l uncovertebral and facet osteoarthritis with minimal scattered bilateral neural foraminal stenosis. There are atherosclerotic calcification is at the bilateral carotid bulbs. Cervical soft tissues are otherwise unremarkable. There are small para mediastinal pleural effusions at the visualized bilatera l upper lungs. IMPRESSION: 1. Mild cervical spondylosis without acute osseous abnormality. 2. Small paramediastinal pleural effusions at the visualized bilateral upper lungs. Reviewed, dictated and finalized at location B. IMPRESSION: 1. Mild cervical spondylosis without acute osseous abnormality. 2. Small paramediastinal pleural effusions at the visualized bilateral upper mukund ngs.
--- NOTE | 2024-01-13 10:07 | ECG_ITS ---
SEE SCANNED COPY FOR CONFIRMED REPORT MTDD
[2024-01-13 10:45] LABS: Basophils Absolute Auto 0.1 K/mm3 (0.0-0.1); Eosinophils Absolute Auto 0.2 K/mm3 (0-0.3); Eosinophils Percent Auto 3.2 % (0-4.4); Hematocrit 31.1 % (42.0-52.0); Hemoglobin 9.5 g/dL (14.0-18.0); Immature Granulocyte Absolute 0.02 K/mm3 (0.00-0.031); Immature Granulocyte Percent A 0.4 % (0-0.5); Immature Platelet Fraction Pct 5.7 % (0.9-11.2); Lymphocytes Absolute Auto 0.56 K/mm3 (0.9-3.2); Lymphocytes Percent Auto 11.1 % (18.3-44.2); Mean Corpuscular HGB Conc 30.5 g/dl (32-36); Mean Corpuscular Hemoglobin 30.5 pg (26-34); Mean Platelet Volume 12.7 fl (7.4-10.4); Monocytes Absolute Auto 0.6 K/mm3 (0.1-0.6); Monocytes Percent Auto 11.5 % (2.6-8.5); Neutrophils Absolute Auto 3.7 K/mm3 (1.3-6.7); Neutrophils Percent Auto 72.8 % (45.5-73.1); Platelet Count Result 76 k/mm3 (150-375); Red Blood Count 3.11 M/mm3 (4.6-6.20); Red Cell Distribution Width 15.5 % (11.5-14.5); White Blood Count 5.1 K/mm3 (4.5-10.0)
[2024-01-13 10:52] LABS: INR 1.5
[2024-01-13 10:53] LABS: Partial Thromboplastin Time 37.8 Seconds (22.3-36.8)
[2024-01-13 11:03] LABS: Alanine Aminotransferase 13 U/L (6-50); Albumin Level 3.2 g/dL (3.5-5.1); Alkaline Phosphatase 161 U/L (38-126); Anion Gap 7 mmol/L (4-12); Aspartate Amino Transferase 20 U/L (17-59); Blood Urea Nitrogen 65 mg/dL (9-20); Calcium 8.4 mg/dL (8.4-10.2); Carbon Dioxide 27 mmol/L (22-30); Chloride 101 mmol/L (98-107); Estimated Glomerular Filt Rate 8; Glucose 135 mg/dL (65-110); Sodium 135 mmol/L (137-145)
--- NOTE | 2024-01-13 11:17 | ED.FALL ---
HPI - Fall General Chief Complaint: Fall Stated Complaint: FALL Source: patient, EMS, RN notes reviewed and old records reviewed Mode of arrival: EMS Limitations: no limitations History of Present Illness HPI Narrative: This is a 58 year old male with history of ESRD on dialysis, chronic anemia who [facility] for evaluation of fall. PAtient states they were using the jason lift and when they put back in chair it went backwards. HE hit the back of his head but he denies LOC. HE reports mild headache, and he had dizziness but states this has improved. HE takes aspirin 81 mg. HE denies any other injuries. He has not had dialysis since last Saturday. He is scheduled for [facility] . EMS reports facility did not have transportation to take on Saturday and he is missing dialysis now today as well. Related Data Home Medications Medication Instructions Recorded Confirmed ferrous sulfate 325 mg (65 mg 325 mg PO DAILY 06/01/20 01/13/24 iron) tablet multivitamin 1 tablet PO DAILY 06/01/20 01/13/24 nitroglycerin 0.4 mg sublingual 0.4 mg sublingual Q5-15M PRN Chest 06/01/20 01/13/24 tablet Pain omega-3 fatty acids-fish oil 360 1 cap PO DAILY 06/01/20 01/13/24 mg-1,200 mg capsule atorvastatin 40 mg tablet (Lipitor) 40 mg PO HS 12/23/20 01/13/24 folic acid 1 mg tablet 1 mg PO DAILY 12/23/20 01/13/24 gabapentin 100 mg tablet 200 mg PO HS 12/23/20 01/13/24 sevelamer carbonate 800 mg tablet 800 mg PO TID 12/23/20 01/13/24 tamsulosin 0.4 mg capsule (Flomax) 0.4 mg PO DAILY 12/23/20 01/13/24 linagliptin 5 mg tablet (Tradjenta) 5 mg PO DAILY 01/13/23 01/13/24 mirtazapine 15 mg tablet 15 mg PO HS 01/13/23 01/13/24 sertraline 50 mg tablet 50 mg PO DAILY 01/13/23 01/13/24 Lactobacillus acidophilus 100 mmu cells PO TID 09/17/23 01/13/24 aspirin 81 mg tablet 81 mg PO DAILY 09/17/23 01/13/24 meclizine 25 mg tablet 25 mg PO Q8H PRN Dizziness 09/17/23 01/13/24 midodrine 10 mg tablet 10 mg PO BID 09/17/23 01/13/24 omeprazole 20 mg capsule,delayed 20 mg PO DAILY 09/17/23 01/13/24 release oxycodone 5 mg tablet 5 mg PO Q4H PRN Pain (Scale Score 09/17/23 01/13/24 7-10) diphenoxylate-atropine 2.5 2 tablet PO TID PRN Diarrhea 09/18/23 01/13/24 mg-0.025 mg tablet (Lomotil) acetaminophen 325 mg tablet 650 mg PO Q6H PRN Pain (Scale 10/29/23 01/13/24 (Tylenol) Score 1-3) methocarbamol 500 mg tablet 500 mg PO TID 10/29/23 01/13/24 naloxone 4 mg/actuation nasal spray 1 spray intranasal Q3M PRN Opioid 10/29/23 01/13/24 Overdose sennosides 8.6 mg-docusate sodium 1 tablet PO BID PRN Constipation 10/29/23 01/13/24 50 mg tablet (Senna Plus) tramadol 50 mg tablet 50 mg PO Q4H PRN Pain 01/13/24 01/13/24 Allergies Allergy/AdvReac Type Severity Reaction Status Date / Time Penicillins Allergy Unknown Unknown Verified 01/13/24 10:15 bee venom protein (honey bee) Allergy Swelling Verified 01/13/24 10:15 Review of Systems Constitutional: Constitutional: Denies weakness Cardiovascular: Cardiovascular: Denies syncope, Denies rapid heart rate, Denies irregular heart rhythm, Denies leg edema and Denies dyspnea Respiratory: Respiratory: Denies chest congestion, Denies hemoptysis, Denies excessive phlegm production and Denies dyspnea Gastrointestinal: Gastrointestinal: Denies abdominal pain, Denies hematochezia, Denies diarrhea and Denies vomiting Genitourinary: Genitourinary: Denies hematuria, Denies dysuria, Denies penile discharge and Denies testicular pain Musculoskeletal: Musculoskeletal: Reports myalgias, Denies joint swelling, Denies loss of height and Reports muscle weakness (chronic) Neurologic: Reports dizziness, Denies syncope, Reports headache(s), Denies focal weakness and Reports weakness (chronic) [facility] Past Medical History Medical History (Updated 01/13/24 @ 18:23 by Jodie Hurst MD) Anemia of chronic disease Anxiety and depression Arthritis Clostridium difficile diarrhea Combined systolic and diastolic congestive heart
[2024-01-13 11:18] LABS: Platelet Estimate Decreased (Adequate); Schistocytes None Seen
[2024-01-13] MEDS: SODIUM ZIRCONIUM CYCLOSILICATE 10 GM POWD.PACK PO (12:29)
[2024-01-13] MEDS: DEXTROSE 50% 25 GM/50 ML SYRINGE IV PUSH (13:26)
[2024-01-13] MEDS: INSULIN HUMAN REGULAR (*BKC) 100 UNITS/ML 10 UNITS IV PUSH (13:27)
[2024-01-13 13:28] LABS: Glucose Point of Care 109 mg/dl (65-105)
[2024-01-13] MEDS: SODIUM BICARBONATE 8.4% 50 MEQ/50 ML SYRINGE IV PUSH (13:29)
[2024-01-13] MEDS: CALCIUM GLUC 1,000 MG/NS 50 ML 1,000 MG/50 ML BAG 100 MG IVPB (13:30)
--- NOTE | 2024-01-13 13:47 | PC.NURSE ---
Staff at [facility] made aware that pt is being admitted to the hospital
--- NOTE | 2024-01-13 13:47 | PM.IMHP ---
H&P: HPI History of Present Illness Date/Time: 01/13/24 14:00 Chief Complaint: Fall. Narrative: This is a 58-year-old male with end-stage renal disease on hemodialysis, chronic anemia, combined systolic and diastolic congestive heart failure, coronary artery disease, hypertension, hyperlipidemia type 2 diabetes mellitus, and other comorbidities who presented to the emergency department via EMS from [facility] for evaluation after a fall. The patient provides the following history. He was being transferred back to his wheelchair using a Azucena lift when the wheelchair tipped over causing him to fall back and hit his head on the floor. He was sent in for imaging after complaining of a headache and neck soreness thereafter. Vital signs were stable on arrival; he is bradycardic in the 40s to 50s which is pretty common for him. Brain and cervical spine CT scan did not show any acute findings. Labs showed a potassium of 6.0 and with further questioning he reports that he missed dialysis on Saturday as his nursing facility did not have transportation for him. He was due for dialysis this morning but was instead sent to the ER after in the fall from the Azucena left. He received appropriate therapy for hyperkalemia and he will be admitted for dialysis later this afternoon. At this time he has no complaints aside from a mild headache. He denies fever, chills, sweats, cold and flu symptoms, chest pain, shortness of breath, nausea, vomiting, and diarrhea. Review of Systems Review of Systems: 12 systems were reviewed and are negative except for as per HPI. [facility] Past Medical History Medical History Anemia of chronic disease Anxiety and depression Arthritis Clostridium difficile diarrhea Combined systolic and diastolic congestive heart failure Coronary artery disease History of multiple stents and 4 vessel bypass. Diabetic nephropathy Diabetic neuropathy Diabetic peripheral neuropathy End-stage renal disease on hemodialysis Hyperlipidemia MRSA infection Obstructive sleep apnea does not use a CPAP Paroxysmal atrial fibrillation Transient atrial fibrillation following bypass surgery. Type 2 diabetes mellitus Surgical History Surgical History History of amputation of toe Left 5th toe 2012 small toe on the right amputated History of cardiac catheterization History of cataract extraction with lens replacement History of coronary artery stent placement History of five vessel coronary artery bypass (2018) Done at [facility] History of left below knee amputation History of right below knee amputation Family History Family History Sibling Patient's sister is Diabetes mellitus Sister Acute myocardial infarction Three brothers and 2 sisters History of blood clots Sister Abdominal aortic aneurysm Sister Dementia Brother COPD (chronic obstructive pulmonary disease) Brother Father Acute myocardial infarction, Onset Age: 65 Mother History of blood clots Hypertension, Onset Age: 80 Social History Social History Social History: Surrogate medical decision maker: Melodie Roca (niece) or Alejandra Murray (sister). Code status: Do not resuscitate. Smoking packs per day: 0.25 Smoking cigarettes per day: 5.0 Smoking status: Never smoker Alcohol intake: never Drinks per week: 2 Alcohol use details: Social alcohol use. Substance use: never Substance use type: marijuana Last use: 2019 Do You Feel Safe in your Home?: Yes Lack of Transportation: No Lack of Food: Never True Current Housing: I Have Housing Concerned About Future Housing: No Difficulty Paying Gas/Electric Bills: No Dif
[2024-01-13 14:14] LABS: Glucose Point of Care 120 mg/dl (65-105)
[2024-01-13 14:30] LABS: Hepatitis B Surface Antigen Negative (Negative)
[2024-01-13 14:44] LABS: Hepatitis B Surface Anti Res Negative
[2024-01-13] MEDS: EPOETIN ALFA-EPBX 10,000 UNITS/ML VIAL 10000 UNITS IV PUSH (15:43)
--- NOTE | 2024-01-13 16:55 | PM.CNNEP ---
Assessment and Plan Assessment and plan (1) ESRD (end stage renal disease): Code(s): N18.6 - End stage renal disease Status: Chronic Assessment and Plan: HD today continue M/W/F schedule while hospitalized follow electrolytes, volume status, and clearance (2) Hyperkalemia: Code(s): E87.5 - Hyperkalemia Status: Acute Assessment and Plan: likely secondary to missed dialysis treatment s/p medical management in the ER further correction with dialysis today follow guicho (3) Fall: Code(s): W19.XXXA - Unspecified fall, initial encounter Status: Acute Assessment and Plan: imaging done/reviewed no acute injuries noted continue supportive therapy (4) Anemia: Code(s): D64.9 - Anemia, unspecified Status: Chronic Assessment and Plan: due to ESRD and worsened by #2 Epogen with HD follow trend of H/H (5) Diabetes mellitus with multiple complications: Code(s): E11.8 - Type 2 diabetes mellitus with unspecified complications Status: Chronic Assessment and Plan: follow Accu-Cheks glycemic control per hospitalists I will continue to follow patient with you while he remains hospitalized and make further recommendations as deemed necessary. Thank you for allowing me to participate in care this patient. History of Present Illness Reason for Consult Consult date: 01/14/24 Reason for consult: end stage renal disease Chief Complaint Chief complaint: Hyperkalemia/ESRD on Dialysis History of Present Illness Narrative: The patient is a 58-year-old male with a past medical history as outlined below who presented to [facility] Emergency Room via EMS from his nursing facility for further evaluation of a status post fall. Patient reports that he was being transferred back to his usual chair using a Azucena lift and when he was placed in the wheelchair it tipped over causing the fall backwards and hit his head on the floor. Following the fall, he had complaints of headache and neck soreness but he was otherwise in no apparent distress. Because of the fall and the concern for possible injury, he was sent to the emergency room for further testing / assessment. Workup and evaluation emergency room demonstrated the patient be hemodynamically stable and in no apparent distress. He was noted to be bradycardic but this is a common/ chronic issue at baseline. Imaging of his brain and cervical spine did not demonstrate any acute fractures or injuries but routine blood tests were significant for for his known history of end-stage renal disease with a potassium of 6.0. On further questioning, he apparently missed his dialysis on Saturday as his nursing facility did not have transportation for him for some reason. He was due for dialysis earlier today but was transferred to the ER following the a for mention fall as described above. Given his hyperkalemia, he received medical management for this and was subsequently admitted to the hospital for further evaluation and therapy as well as dialytic support. He denies any other acute issues or complaints at this time. Renal consultation was requested due to his end-stage renal disease. The patient normally dialyzes on a Saturday, Saturday, Saturday dialysis schedule at [facility] under the care of Dr. Jimmie Almodovar As mentioned above, his last dialysis treatment was on 01/08/24 Due the fact that his nursing facility was unable to provide transportation for him for his scheduled dialysis treatment on Saturday. Surprisingly, aside from his electrolyte abnormality, his volume status appears to be relatively stable. From review his records, he has a history of missing dialysis treatments for a variety of reasons some of them which relate to his refusal and some the related to inability to get adequate transportation to and from dialysis. Currently, at the time my visit, he is
[2024-01-13] MEDS: ALBUMIN HUMAN 25% 12.5 GM/50ML 50 ML 999 GM (17:35)
[2024-01-13] MEDS: ACETAMINOPHEN 325 MG TABLET 650 MG PO (20:56)
[2024-01-13 23:31] LABS: Anion Gap 7 mmol/L (4-12); Blood Urea Nitrogen 27 mg/dL (9-20); Calcium 8.5 mg/dL (8.4-10.2); Carbon Dioxide 29 mmol/L (22-30); Chloride 103 mmol/L (98-107); Estimated CRCL calculation 22 ml/min; Estimated Glomerular Filt Rate 17; Glucose 123 mg/dL (65-110); Potassium 4.4 mmol/L (3.4-5.0); Sodium 139 mmol/L (137-145)
[2024-01-14] VITALS (17 sets, daily range): BP systolic 110–143; BP diastolic 40–62; PULSE 44–61; RESP 17–18; TEMP 36.2–36.6; O2SAT 94–98
[2024-01-14] MEDS: GABAPENTIN 100 MG CAPSULE 200 MG PO ×2 (00:01→20:09)
[2024-01-14] MEDS: ATORVASTATIN 40 MG TABLET PO ×2 (00:01→20:09)
[2024-01-14] MEDS: MIRTAZAPINE 15 MG TABLET PO ×2 (00:03→20:09)
[2024-01-14 04:35] LABS: Basophils Percent Auto 1.1 % (0.2-1.2); Eosinophils Absolute Auto 0.1 K/mm3 (0-0.3); Eosinophils Percent Auto 3.9 % (0-4.4); Hematocrit 32.1 % (42.0-52.0); Hemoglobin 9.8 g/dL (14.0-18.0); Immature Granulocyte Absolute 0.01 K/mm3 (0.00-0.031); Immature Granulocyte Percent A 0.3 % (0-0.5); Lymphocytes Absolute Auto 0.48 K/mm3 (0.9-3.2); Lymphocytes Percent Auto 13.3 % (18.3-44.2); Mean Corpuscular HGB Conc 30.5 g/dl (32-36); Mean Corpuscular Hemoglobin 31.1 pg (26-34); Mean Corpuscular Volume 101.9 fl (80-100); Mean Platelet Volume 12.4 fl (7.4-10.4); Monocytes Absolute Auto 0.6 K/mm3 (0.1-0.6); Monocytes Percent Auto 15.2 % (2.6-8.5); Neutrophils Absolute Auto 2.4 K/mm3 (1.3-6.7); Neutrophils Percent Auto 66.2 % (45.5-73.1); Platelet Count Result 75 k/mm3 (150-375); Red Blood Count 3.15 M/mm3 (4.6-6.20); Red Cell Distribution Width 15.7 % (11.5-14.5); White Blood Count 3.6 K/mm3 (4.5-10.0)
[2024-01-14 04:47] LABS: Alanine Aminotransferase 12 U/L (6-50); Albumin Level 3.2 g/dL (3.5-5.1); Alkaline Phosphatase 140 U/L (38-126); Anion Gap 5 mmol/L (4-12); Aspartate Amino Transferase 20 U/L (17-59); Bilirubin,Total 0.8 mg/dL (0.2-1.3); Blood Urea Nitrogen 31 mg/dL (9-20); Calcium 8.4 mg/dL (8.4-10.2); Carbon Dioxide 31 mmol/L (22-30); Chloride 102 mmol/L (98-107); Estimated CRCL calculation 20 ml/min; Estimated Glomerular Filt Rate 16; Glucose 101 mg/dL (65-110); Magnesium 2.1 mg/dL (1.6-2.3); Potassium 4.5 mmol/L (3.4-5.0); Sodium 138 mmol/L (137-145)
[2024-01-14 05:19] LABS: Anisocytosis 1+; Platelet Estimate Decreased (Adequate); Schistocytes None Seen
[2024-01-14] MEDS: ACETAMINOPHEN 325 MG TABLET 650 MG PO ×2 (06:40→20:20)
[2024-01-14] MEDS: TAMSULOSIN HCL 0.4 MG CAPSULE PO (08:44)
[2024-01-14] MEDS: MIDODRINE HCL 10 MG TABLET PO ×2 (08:44→18:06)
[2024-01-14] MEDS: methocarbamoL 500 MG TABLET PO ×3 (08:44→18:06)
[2024-01-14] MEDS: ASPIRIN 81 MG CHEWABLE TABLET PO (08:44)
[2024-01-14] MEDS: SITagliptin PHOSPHATE 100 MG TABLET PO (08:44)
[2024-01-14] MEDS: FOLIC ACID 1 MG TABLET PO (08:44)
[2024-01-14] MEDS: ACIDOPHILUS/BULGARICUS CHEWABLE TABLET 1 TABLET PO ×3 (08:44→18:06)
[2024-01-14] MEDS: SEVELAMER CARBONATE 800 MG TABLET PO ×3 (08:45→18:06)
[2024-01-14] MEDS: OMEGA 3 POLYUNSAT FATTY ACIDS 1 GM CAP PO (08:45)
[2024-01-14] MEDS: FERROUS SULFATE 325 MG TABLET DR BY MOUTH (08:45)
[2024-01-14] MEDS: PANTOPRAZOLE 40 MG TABLET PO (08:45)
[2024-01-14] MEDS: MULTIVITAMINS THERAPEUTIC TAB (*BKC) 1 TABLET PO (08:45)
--- NOTE | 2024-01-14 10:54 | PM.PNNEP ---
Progress Note: A&P Assessment and Plan (1) ESRD (end stage renal disease): Code(s): N18.6 - End stage renal disease Status: Chronic Assessment and Plan: HD tomorrow continue M/W/F schedule while hospitalized follow electrolytes, volume status, and clearance (2) Hyperkalemia: Code(s): E87.5 - Hyperkalemia Status: Acute Assessment and Plan: resolved likely secondary to missed dialysis treatment s/p medical management in the ER further correction with dialysis on admission follow trend (3) Fall: Code(s): W19.XXXA - Unspecified fall, initial encounter Status: Acute Assessment and Plan: occurred at nursing facility during jason lift transfer imaging reviewed no significant trauma aside for left occiput scalp hematoma supportive therapy (4) Anemia: Code(s): D64.9 - Anemia, unspecified Status: Chronic Assessment and Plan: due to ESRD and worsened by #2 Epogen with HD follow trend of H/H (5) Diabetes mellitus with multiple complications: Code(s): E11.8 - Type 2 diabetes mellitus with unspecified complications Status: Chronic Assessment and Plan: follow Accu-Cheks glycemic control per hospitalists Not opposed to discharge from renal perspective if otherwise medically stable. Will continue to follow. Subjective Date/time seen: 01/14/24 10:54 Interval history: Follow-up for end stage renal disease on hemodialysis. Tolerated hemodialysis treatment yesterday afternoon without any issues or problems; no events overnight or earlier this morning; potassium level is stable; no apparent distress voiced at the time of my visit today. Exam Narrative: General: WD/WN male in NAD Heart: normal S1 and S2; no rub Lungs: clear anteriorly; dereased at bases Abdomen: soft, nontender, nondistended, positive bowel sounds; s/p bilateral BKAs Extremities: no cyanosis or clubbing; no edema Skin: warm and intact Objective Data Vital Signs Vital Signs: Vital Signs Temp Pulse Resp BP Pulse Ox O2 Del Method 01/14/24 10:00 47 L 01/14/24 08:00 Room Air 01/14/24 08:00 49 L 01/14/24 08:10 97.9 F 52 L 18 122/49 L 96 01/14/24 06:00 49 L 01/14/24 04:00 53 L 01/14/24 04:00 Room Air 01/14/24 05:26 97.6 F 53 L 18 114/40 L 94 01/14/24 02:00 48 L 01/14/24 00:00 51 L 01/14/24 00:00 Room Air 01/13/24 22:00 58 L 01/14/24 00:37 97.7 F 53 L 18 129/57 L 97 01/13/24 22:40 97.8 F 60 18 112/55 L 97 01/13/24 18:00 54 L 01/13/24 16:00 52 L 01/13/24 19:01 97.7 F 65 18 127/62 01/13/24 18:46 69 132/62 01/13/24 18:45 57 L 126/50 L 01/13/24 18:30 58 L 110/56 L 01/13/24 18:15 57 L 122/57 L 01/13/24 18:00 54 L 115/49 L 01/13/24 17:45 57 L 103/45 L 01/13/24 17:30 53 L 111/42 L 01/13/24 17:15 51 L 95/45 L 01/13/24 14:00 52 L 01/13/24 17:00 49 L 100/41 L 01/13/24 16:45 53 L 102/46 L 01/13/24 16:30 52 L 89/42 L 01/13/24 16:15 52 L 98/43 L 01/13/24 16:00 52 L 97/44 L 01/13/24 15:45 48 L 97/48 L 01/13/24 15:30 47 L 115/54 L 01/13/24 15:12 51 L 140/66 01/13/24 15:00 97.5 F L 48 L 18 134/56 L 01/13/24 14:00 97.9 F 50 L 16 142/58 H 93 01/13/24 13:44 97.7 F 45 L 12 137/66 94 01/13/24 13:32 44 L 12 137/66 93 Intake/Output Intake/Output: Intake & Output 01/11/24 01/12/24 01/13/24 01/14/24 23:59 23:59 23:59 23:59 Intake Total 980 Output Total 1913 0 Balance -3 980 Meds/Results Medications: Active Medications Generic Name Dose Route Start Last Admin Trade Name Freq PRN Reason Stop Dose Admin Acetaminophen 650 mg 01/13/24 22:37 01/14/24 06:40 Acetaminophen 325 Mg Tablet PO 650 mg Q6H PRN Administration Pain (Scale Score
[2024-01-14 12:22] LABS: Glucose Point of Care 154 mg/dl (65-105)
--- NOTE | 2024-01-14 12:56 | PM.IMPN ---
Progress Note: A&P Assessment and Plan (1) Hyperkalemia: Code(s): E87.5 - Hyperkalemia Status: Acute (2) Bradycardia: Code(s): R00.1 - Bradycardia, unspecified Status: Acute (3) Fall: Code(s): W19.XXXA - Unspecified fall, initial encounter Status: Acute (4) End-stage renal disease on hemodialysis: Code(s): N18.6 - End stage renal disease; Z99.2 - Dependence on renal dialysis Status: Acute (5) Thrombocytopenia: Code(s): D69.6 - Thrombocytopenia, unspecified Status: Acute (6) Anemia of chronic disease: Code(s): D63.8 - Anemia in other chronic diseases classified elsewhere Status: Acute (7) Chronic combined systolic and diastolic heart failure: Code(s): I50.42 - Chronic combined systolic (congestive) and diastolic (congestive) heart failure Status: Acute Plan The patient presented to the emergency department for evaluation of head and neck pain after his wheelchair tipped back while being transferred via Azucena lift as per HPI. Labs, imaging, EKG, and all reports were personally reviewed. CT of the brain and cervical spine did not show any acute findings. Labs were checked as he missed dialysis last Saturday due to no transportation at his nursing facility. Potassium was greater than 6 and he was treated appropriately for that. He is being admitted for dialysis this evening. He has been bradycardic in the 40s to 50s which is not unusual for him with hyperkalemia. Watch bmp, pt due to have dilaysis in am, nephrology following, PT/ OT consulted Subjective Date/time seen: 01/14/24 12:56 Interval history: 58-year-old male with end-stage renal disease on hemodialysis, chronic anemia, combined systolic and diastolic congestive heart failure, coronary artery disease, hypertension, hyperlipidemia type 2 diabetes mellitus, and other comorbidities who presented to the emergency department via EMS from [facility] for evaluation after a fall. The patient provides the following history. He was being transferred back to his wheelchair using a Azucena lift when the wheelchair tipped over causing him to fall back and hit his head on the floor. He was sent in for imaging after complaining of a headache and neck soreness thereafter. Vital signs were stable on arrival; he is bradycardic in the 40s to 50s which is pretty common for him. Brain and cervical spine CT scan did not show any acute findings. Labs showed a potassium of 6.0 and with further questioning he reports that he missed dialysis on Saturday as his nursing facility did not have transportation for him. He was due for dialysis this morning but was instead sent to the ER after in the fall from the Azucena left. Pt doing better today pt going dialysis tomorrow Review of Systems Review of Systems: Pt is less sob still weak Exam Narrative: General:?Chronically ill-appearing gentleman Neck:??Supple. Respiratory:?Respirations are nonlabored and lungs are clear to auscultation. Cardiovascular:??Bradycardic in the 50s with S1-S2. Gastrointestinal:??Abdomen is soft, nontender, and nondistended with positive bowel sounds. Skin:??Warm and dry. Generalized pallor. Some bruising over the left knee. Extremities:??No cyanosis or clubbing. Right upper extremity fistula with palpable thrill in October. Status post bilateral [id number] amputations. Neurological:??Alert.? Cranial nerves 2-12 are grossly intact. Generalized weakness without gross focal findings. Psychiatric:?Appropriate mood and affect. Objective Data Vital Signs Vital Signs: Vital Signs - 24 hr 01/13/24 13:32 01/13/24 13:44 01/13/24 14:00 Temperature 36.5 C 36.6 C Pulse Rate 44 L 45 L 50 L Respiratory Rate 12 12 16 Blood Pressure 137/66 137/66 142/58 H Pulse Oximetry 93 94 93 Oxygen Delivery 01/13/24 15:00 01/13/24 15:12 01/13/24 15:30 Temperature 36.4 C L Pulse Rate 48 L 51 L 47 L Respiratory Rate 18 Bl
[2024-01-14] MEDS: SERTRALINE HCL 50 MG TABLET PO (13:08)
[2024-01-14 13:38] LABS: Anion Gap 4 mmol/L (4-12); Blood Urea Nitrogen 33 mg/dL (9-20); Calcium 8.2 mg/dL (8.4-10.2); Carbon Dioxide 32 mmol/L (22-30); Chloride 102 mmol/L (98-107); Estimated CRCL calculation 18 ml/min; Estimated Glomerular Filt Rate 13; Glucose 150 mg/dL (65-110); Potassium 4.4 mmol/L (3.4-5.0); Sodium 138 mmol/L (137-145)
--- NOTE | 2024-01-14 15:48 | PCPTNOTE ---
spoke with pt, he uses a jason lift to and from W/C at his facility, does NOT self-propel W/C, spoke with Dr. Olmos about pt condition, cancelling PT orders
[2024-01-14 17:57] LABS: Glucose Point of Care 169 mg/dl (65-105)
[2024-01-14 23:46] LABS: Glucose Point of Care 119 mg/dl (65-105)
[2024-01-15] VITALS (34 sets, daily range): BP systolic 109–153; BP diastolic 46–69; PULSE 43–66; RESP 18–20; TEMP 36.1–37; O2SAT 94–97
[2024-01-15 06:25] LABS: Glucose Point of Care 127 mg/dl (65-105)
[2024-01-15] MEDS: SERTRALINE HCL 50 MG TABLET PO (08:23)
[2024-01-15] MEDS: MULTIVITAMINS THERAPEUTIC TAB (*BKC) 1 TABLET PO (08:23)
[2024-01-15] MEDS: SEVELAMER CARBONATE 800 MG TABLET PO ×3 (08:23→17:10)
[2024-01-15] MEDS: PANTOPRAZOLE 40 MG TABLET PO (08:23)
[2024-01-15] MEDS: SITagliptin PHOSPHATE 100 MG TABLET PO (08:23)
[2024-01-15] MEDS: FERROUS SULFATE 325 MG TABLET DR BY MOUTH (08:23)
[2024-01-15] MEDS: OMEGA 3 POLYUNSAT FATTY ACIDS 1 GM CAP PO (08:23)
[2024-01-15] MEDS: FOLIC ACID 1 MG TABLET PO (08:23)
[2024-01-15] MEDS: methocarbamoL 500 MG TABLET PO ×3 (08:23→17:10)
[2024-01-15] MEDS: TAMSULOSIN HCL 0.4 MG CAPSULE PO (08:23)
[2024-01-15] MEDS: ASPIRIN 81 MG CHEWABLE TABLET PO (08:24)
[2024-01-15] MEDS: ACIDOPHILUS/BULGARICUS CHEWABLE TABLET 1 TABLET PO ×3 (08:24→17:10)
[2024-01-15] MEDS: DIPHENOXYLATE/ATROPINE (*CRX) 2.5 MG TABLET 2 TABLET PO (08:33)
--- NOTE | 2024-01-15 11:05 | PC.NURSE ---
Pt in a heart block this morning with bradycardia. no dizziness or shortness of breath. Tele strip reviewed with Dr. Carpenter. Order received for cardiology consult.
--- NOTE | 2024-01-15 12:00 | PM.PNNEP ---
Progress Note: A&P Assessment and Plan (1) ESRD (end stage renal disease): Code(s): N18.6 - End stage renal disease Status: Chronic Assessment and Plan: HD today continue M/W/F schedule while hospitalized follow electrolytes, volume status, and clearance (2) Hyperkalemia: Code(s): E87.5 - Hyperkalemia Status: Acute Assessment and Plan: resolved likely secondary to missed dialysis treatment s/p medical management in the ER further correction with dialysis on admission follow trend (3) Fall: Code(s): W19.XXXA - Unspecified fall, initial encounter Status: Acute Assessment and Plan: occurred at nursing facility during jason lift transfer imaging reviewed no significant trauma aside for left occiput scalp hematoma supportive therapy (4) Anemia: Code(s): D64.9 - Anemia, unspecified Status: Chronic Assessment and Plan: due to ESRD and worsened by #2 Epogen with HD follow trend of H/H (5) Diabetes mellitus with multiple complications: Code(s): E11.8 - Type 2 diabetes mellitus with unspecified complications Status: Chronic Assessment and Plan: follow Accu-Cheks glycemic control per hospitalists Not opposed to discharge from renal perspective if otherwise medically stable. Will continue to follow. Subjective Date/time seen: 01/15/24 12:00 Interval history: Follow-up for end stage renal disease on hemodialysis. Tolerating hemodialysis treatment at the time of my visit (seen on HD at 11:45AM); resting comfortably and in no apparent distress; ongoing bradycardia noted but this is a chronic issues and remains relatively stable; no issues/events overnight or earlier this morning. Exam Narrative: General: WD/WN male in NAD Heart: normal S1 and S2; no rub Lungs: clear anteriorly; dereased at bases Abdomen: soft, nontender, nondistended, positive bowel sounds; s/p bilateral BKAs Extremities: no cyanosis or clubbing; no edema Skin: no nodules Objective Data Vital Signs Vital Signs: Vital Signs Temp Pulse Resp BP Pulse Ox O2 Del Method 01/15/24 10:00 57 L 01/15/24 08:00 50 L Room Air 01/15/24 08:00 50 L 01/15/24 08:00 97.6 F 58 L 18 144/66 H 95 01/15/24 06:00 49 L 01/15/24 04:00 52 L 05/15/24 05:06 97.1 F L 56 L 18 153/46 H 94 01/15/24 04:00 Room Air 01/15/24 02:00 57 L 01/15/24 00:00 53 L 01/15/24 00:09 97.4 F L 50 L 18 127/46 L 97 01/14/24 22:00 54 L 01/14/24 20:00 53 L 01/14/24 20:26 97.2 F L 53 L 18 143/45 H 95 01/14/24 16:00 Room Air 01/14/24 18:00 52 L 01/14/24 16:00 54 L 01/14/24 15:38 97.6 F 44 L 18 110/52 L 98 Intake/Output Intake/Output: Intake & Output 01/12/24 01/13/24 01/14/24 01/15/24 23:59 23:59 23:59 23:59 Intake Total 1200 1030 Output Total 1913 0 Balance -1913 1200 1030 Meds/Results Medications: Active Medications Generic Name Dose Route Start Last Admin Trade Name Freq PRN Reason Stop Dose Admin Acetaminophen 650 mg 01/13/24 22:37 01/14/24 20:20 Acetaminophen 325 Mg Tablet PO 650 mg Q6H PRN Administration Pain (Scale Score 1-3) Aspirin 81 mg 01/14/24 08:00 01/15/24 08:24 Aspirin 81 Mg Chewable Tablet PO 81 mg DAILY@0800 SALVADOR Administration Atorvastatin Calcium 40 mg 01/13/24 23:00 01/14/24 20:09 Atorvastatin 40 Mg Tablet PO 40 mg HS SALVADOR Administration Dextrose 12.5 gm 01/13/24 12:16 Dextrose 50% 25 Gm/50 Ml Syringe IV PUSH PRN PRN Hypoglycemia Protocol Diphenoxylate HCl/Atropine 2 tablet 01/13/24 22:37 01/15/24 08:33 Diphenoxylate/Atropine (*Crx) 2.5 Mg Tablet PO 2 tablet TID PRN Administration Diarrhea Epoetin Bradford-epbx 10,000 units 01/15/24 20:00 Epoetin Bradford-Epbx 10,000 Units/Ml Vial IV PUSH 01/15/24 20:01 ONCE
--- NOTE | 2024-01-15 12:00 | P.PNNP_ITS ---
Progress Note: A&P Assessment and Plan (1) ESRD (end stage renal disease): Code(s): N18.6 - End stage renal disease Status: Chronic Assessment and Plan: * HD today * continue M/W/F schedule while hospitalized * follow electrolytes, volume status, and clearance (2) Hyperkalemia: Code(s): E87.5 - Hyperkalemia Status: Acute Assessment and Plan: * resolved * likely secondary to missed dialysis treatment * s/p medical management in the ER * further correction with dialysis on admission * follow trend (3) Fall: Code(s): W19.XXXA - Unspecified fall, initial encounter Status: Acute Assessment and Plan: * occurred at nursing facility during jason lift transfer * imaging reviewed * no significant trauma aside for left occiput scalp hematoma * supportive therapy (4) Anemia: Code(s): D64.9 - Anemia, unspecified Status: Chronic Assessment and Plan: * due to ESRD and worsened by #2 * Epogen with HD * follow trend of H/H (5) Diabetes mellitus with multiple complications: Code(s): E11.8 - Type 2 diabetes mellitus with unspecified complications Status: Chronic Assessment and Plan: * follow Accu-Cheks * glycemic control per hospitalists Not opposed to discharge from renal perspective if otherwise medically stable. Will continue to follow. Subjective Date/time seen: 01/15/24 12:00 Interval history: Follow-up for end stage renal disease on hemodialysis. Tolerating hemodialysis treatment at the time of my visit (seen on HD at 11:45AM); resting comfortably and in no apparent distress; ongoing bradycardia noted but this is a chronic issues and remains relatively stable; no issues/e vents overnight or earlier this morning. Exam Narrative: General: WD/WN male in NAD Heart: normal S1 and S2; no rub Lungs: clear anteriorly; dereased at bases Abdomen: soft, nontender, nondistended, positive bowel sounds; s/p bilateral BKAs Extremities: no cyanosis or clubbing; no edema Skin: no nodules Objective Data Vital Signs Vital Signs: Vital Signs Temp Pulse Resp BP Pulse Ox O2 Del Method 01/15/24 10:00 57 L 01/15/24 08:00 50 L Room Air 01/15/24 08:00 50 L 01/15/24 08:00 97.6 F 58 L 18 144/66 H 95 05/15/24 06:00 49 L 01/15/24 04:00 52 L 01/15/24 05:06 97.1 F L 56 L 18 153/46 H 94 01/15/24 04:00 Room Air 01/15/24 02:00 57 L 01/15/24 00:00 53 L 01/15/24 00:09 97.4 F L 50 L 18 127/46 L 97 01/14/24 22:00 54 L 01/14/24 20:00 53 L 01/14/24 20:26 97.2 F L 53 L 18 143/45 H 95 01/14/24 16:00 Room Air 01/14/24 18:00 52 L 01/14/24 16:00 54 L 01/14/24 15:38 97.6 F 44 L 18 110/52 L 98 Intake/Output Intake/Output: Intake & Output 01/12/24 01/13/24 01/14/24 01/15/24 23:59 23:59 23:59 23:59 Intake Total 1200 1030 Output Total 1913 0 Balance -1913 1200 1030 Meds/Results Medications: Active Medications Generic Name Dose Route Start Last Admin Trade Name Saulo Livingston
--- NOTE | 2024-01-15 12:07 | PM.CNCAR ---
Assessment and Plan Assessment and plan (1) Bradycardia: Code(s): R00.1 - Bradycardia, unspecified Status: Acute Assessment and Plan: Stable. Asymptomatic. HR in upper 40's-50's bpm range. Intermittent first degree and 2nd degree AV block, type I. Normal BP. No need for pacemaker at this time. (2) CAD (coronary artery disease), autologous vein bypass graft: Qualifiers: Associated angina: without angina Qualified Code(s): I25.810 - Atherosclerosis of coronary artery bypass graft(s) without angina pectoris Code(s): I25.810 - Atherosclerosis of coronary artery bypass graft(s) without angina pectoris Status: Acute Assessment and Plan: Stable. (3) Chronic combined systolic and diastolic heart failure: Code(s): I50.42 - Chronic combined systolic (congestive) and diastolic (congestive) heart failure Status: Acute Assessment and Plan: Stable. (4) ESRD (end stage renal disease): Code(s): N18.6 - End stage renal disease Status: Chronic History of Present Illness History of Present Illness Consult date/time: 01/15/24 12:07 Reason For Visit: Hyperkalemia/ESRD on Dialysis Narrative: 58 yr old man presents to hospital after a fall from wheelchair as he was being transported. He has a history of CAD/CABG x 4 vessels at [facility] in Sep 2017 and had post op atrial fib but without recurrence, chronic systolic and diastolic dysfunction, DM, smoking, hypertension, dyslipidemia, double amputee for DM/PAD. Consult for bradycardia. Telemetry and EKG show intermittent first degree AV block and 2nd degree AV block, type I with stable BP. Currently having hemodialysis. Denies chest pain, sob, orthopnea, PND, edema, dizziness, palpitations. January 2020 Lexiscan myoview was a suboptimal study with diffuse scar.?2020 Echo shows EF 35-40% with dilated LV, diastolic dysfunction, RV dysfunction with mild pulm hypertension. His EF fluctuates between 30-40% in the past. Nephrology noted that he may have had worsening kidney function with Entresto. Discussed Life Vest to prevent sudden cardiac arrest with patient and at that time he wanted to think about.? Review of Systems Review of Systems: All systems reviewed & are unremarkable except as noted in HPI and below Constitutional: Constitutional: Reports as per HPI, Denies chills, Reports fatigue and Denies fever(s) Cardiovascular: Cardiovascular: Reports as per HPI, Denies chest pain and Denies irregular heart rhythm Respiratory: Respiratory: Reports as per HPI and Denies dyspnea Gastrointestinal: Gastrointestinal: Reports as per HPI and Denies abdominal pain Genitourinary: Genitourinary: Reports as per HPI and Denies dysuria Musculoskeletal: Musculoskeletal: Reports as per HPI Neurologic: Reports as per HPI, Denies dizziness and Denies syncope [facility] Past Medical History Medical History Anemia of chronic disease Anxiety and depression Arthritis Clostridium difficile diarrhea Combined systolic and diastolic congestive heart failure Coronary artery disease History of multiple stents and 4 vessel bypass. Diabetic nephropathy Diabetic neuropathy Diabetic peripheral neuropathy End-stage renal disease on hemodialysis Hyperlipidemia MRSA infection Obstructive sleep apnea does not use a CPAP Paroxysmal atrial fibrillation Transient atrial fibrillation following bypass surgery. Type 2 diabetes mellitus Surgical History Surgical History History of amputation of toe Left 5th toe 2012 small toe on the right amputated History of cardiac catheterization History of cataract extraction with lens replacement History of coronary artery stent placement History of five vessel coronary artery bypass (2018) Done at [facility] History of left below knee amputation History of right below knee amputation Family H
[2024-01-15 13:00] LABS: Anion Gap 4 mmol/L (4-12); Blood Urea Nitrogen 15 mg/dL (9-20); Calcium 8.1 mg/dL (8.4-10.2); Carbon Dioxide 29 mmol/L (22-30); Chloride 108 mmol/L (98-107); Estimated CRCL calculation 34 ml/min; Estimated Glomerular Filt Rate 29; Glucose 100 mg/dL (65-110); Magnesium 1.9 mg/dL (1.6-2.3); Potassium 3.3 mmol/L (3.4-5.0); Sodium 141 mmol/L (137-145)
[2024-01-15] MEDS: MIDODRINE HCL 10 MG TABLET PO ×2 (14:52→17:10)
--- NOTE | 2024-01-15 15:47 | PM.IMPN ---
Progress Note: A&P Assessment and Plan (1) Hyperkalemia: Code(s): E87.5 - Hyperkalemia Status: Acute (2) Bradycardia: Code(s): R00.1 - Bradycardia, unspecified Status: Acute (3) Fall: Code(s): W19.XXXA - Unspecified fall, initial encounter Status: Acute (4) End-stage renal disease on hemodialysis: Code(s): N18.6 - End stage renal disease; Z99.2 - Dependence on renal dialysis Status: Acute (5) Thrombocytopenia: Code(s): D69.6 - Thrombocytopenia, unspecified Status: Acute (6) Anemia of chronic disease: Code(s): D63.8 - Anemia in other chronic diseases classified elsewhere Status: Acute (7) Chronic combined systolic and diastolic heart failure: Code(s): I50.42 - Chronic combined systolic (congestive) and diastolic (congestive) heart failure Status: Acute Plan The patient presented to the emergency department for evaluation of head and neck pain after his wheelchair tipped back while being transferred via Azucena lift as per HPI. Labs, imaging, EKG, and all reports were personally reviewed. CT of the brain and cervical spine did not show any acute findings. Labs were checked as he missed dialysis last Saturday due to no transportation at his nursing facility. Potassium was greater than 6 and he was treated appropriately for that. He is being admitted for dialysis this evening. He has been bradycardic in the 40s to 50s which is not unusual for him. Hyperkalemia corrected Pt sp dialysis today Continue PT/ OT await cardology consult Subjective Date/time seen: 01/15/24 15:47 Interval history: 58-year-old male with end-stage renal disease on hemodialysis, chronic anemia, combined systolic and diastolic congestive heart failure, coronary artery disease, hypertension, hyperlipidemia type 2 diabetes mellitus, and other comorbidities who presented to the emergency department via EMS from [facility] for evaluation after a fall. The patient provides the following history. He was being transferred back to his wheelchair using a Azucena lift when the wheelchair tipped over causing him to fall back and hit his head on the floor. He was sent in for imaging after complaining of a headache and neck soreness thereafter. Vital signs were stable on arrival; he is bradycardic in the 40s to 50s which is pretty common for him. Brain and cervical spine CT scan did not show any acute findings. Labs showed a potassium of 6.0 and with further questioning he reports that he missed dialysis on Saturday as his nursing facility did not have transportation for him. He was due for dialysis this morning but was instead sent to the ER after in the fall from the Azucena left. Pt doing better today pt sp dialysis today Tele shows some bradycardia with LBBB Cardiology consulted Review of Systems Review of Systems: No acute issues Exam Narrative: General:?Chronically ill-appearing gentleman Neck:??Supple. Respiratory:?Respirations are nonlabored and lungs are clear to auscultation. Cardiovascular:??Bradycardic in the 50s with S1-S2. Gastrointestinal:??Abdomen is soft, nontender, and nondistended with positive bowel sounds. Skin:??Warm and dry. Generalized pallor. Some bruising over the left knee. Extremities:??No cyanosis or clubbing. Right upper extremity fistula with palpable thrill in October. Status post bilateral [id number] amputations. Neurological:??Alert.? Cranial nerves 2-12 are grossly intact. Generalized weakness without gross focal findings. Psychiatric:?Appropriate mood and affect. Objective Data Vital Signs Vital Signs: Vital Signs - 24 hr 01/14/24 16:00 01/14/24 18:00 01/14/24 16:00 Temperature Pulse Rate 54 L 52 L Respiratory Rate Blood Pressure Pulse Oximetry Oxygen Delivery Room Air 01/14/24 20:26 01/14/24 20:00 01/14/24 22:00 Temperature 36.2 C L Pulse Rate 53 L 53 L 54 L Respiratory Rate 18 Bloo
[2024-01-15 18:32] LABS: Glucose Point of Care 84 mg/dl (65-105)
[2024-01-15 18:32] LABS: Glucose Point of Care 126 mg/dl (65-105)
[2024-01-15] MEDS: MIRTAZAPINE 15 MG TABLET PO (20:39)
[2024-01-15] MEDS: ATORVASTATIN 40 MG TABLET PO (20:39)
[2024-01-15] MEDS: GABAPENTIN 100 MG CAPSULE 200 MG PO (20:39)
[2024-01-15 20:52] LABS: Glucose Point of Care 135 mg/dl (65-105)
[2024-01-16] VITALS (13 sets, daily range): BP systolic 133–165; BP diastolic 49–75; PULSE 41–76; RESP 16–24; TEMP 36.2–36.7; O2SAT 93–97
--- NOTE | 2024-01-16 08:02 | PM.PNCARD ---
Progress Note: A&P Assessment and Plan (1) Bradycardia: Code(s): R00.1 - Bradycardia, unspecified Status: Acute Assessment and Plan: Stable. Asymptomatic. HR in upper 40's-50's bpm range. Intermittent first degree and 2nd degree AV block, type I. Normal BP. No need for pacemaker at this time. Will sign off. Please call with any questions. (2) CAD (coronary artery disease), autologous vein bypass graft: Qualifiers: Associated angina: without angina Qualified Code(s): I25.810 - Atherosclerosis of coronary artery bypass graft(s) without angina pectoris Code(s): I25.810 - Atherosclerosis of coronary artery bypass graft(s) without angina pectoris Status: Acute Assessment and Plan: Stable. (3) Chronic combined systolic and diastolic heart failure: Code(s): I50.42 - Chronic combined systolic (congestive) and diastolic (congestive) heart failure Status: Acute Assessment and Plan: Stable. (4) ESRD (end stage renal disease): Code(s): N18.6 - End stage renal disease Status: Chronic Subjective Date/time seen: 01/16/24 08:02 Interval history: Denies chest pain, sob, dizziness. Exam Const: General: cooperative, healthy appearing and comfortable Orientation/consciousness: oriented to person, oriented to place and oriented to time Resp: Auscultation: clear to auscultation bilaterally, no crackles, no rales, no rhonchi and no wheezes Cardio: Rate: bradycardic Rhythm: regular rhythm Heart sounds: no murmurs Peripheral pulses: dorsalis pedis present Neuro: General: oriented to person, oriented to place and oriented to time Extrem: Other: Below knee amputations bilaterally Objective Data Vital Signs Vital Signs: Vital Signs - 24 hr 01/15/24 10:00 01/15/24 13:30 01/15/24 12:00 Temperature Pulse Rate 57 L 55 L Respiratory Rate Blood Pressure Pulse Oximetry Oxygen Delivery Room Air 01/15/24 14:00 01/15/24 15:58 01/15/24 16:00 Temperature 97.9 F Pulse Rate 56 L 59 L 59 L Respiratory Rate 20 Blood Pressure 145/57 H Pulse Oximetry 94 Oxygen Delivery 01/15/24 16:00 01/15/24 18:00 01/15/24 20:30 Temperature 97.0 F L Pulse Rate 59 L 56 L Respiratory Rate 20 Blood Pressure 129/53 L Pulse Oximetry 94 Oxygen Delivery Room Air 01/15/24 09:26 01/15/24 13:07 01/15/24 09:31 Temperature 98.2 F Pulse Rate 59 L 66 43 L Respiratory Rate 18 Blood Pressure 131/58 L 151/64 H 124/55 L Pulse Oximetry Oxygen Delivery 01/15/24 09:45 01/15/24 10:02 01/15/24 10:16 Temperature Pulse Rate 45 L 50 L 62 Respiratory Rate Blood Pressure 116/51 L 109/55 L 114/55 L Pulse Oximetry Oxygen Delivery 01/15/24 10:30 01/15/24 10:45 01/15/24 11:00 Temperature Pulse Rate 59 L 64 65 Respiratory Rate Blood Pressure 118/54 L 115/54 L 125/61 Pulse Oximetry Oxygen Delivery 01/15/24 11:15 01/15/24 11:31 01/15/24 11:45 Temperature Pulse Rate 66 62 62 Respiratory Rate Blood Pressure 133/69 124/61 127/60 Pulse Oximetry Oxygen Delivery 01/15/24 12:00 01/15/24 12:15 01/15/24 12:30 Temperature Pulse Rate 64 64 64 Respiratory Rate Blood Pressure 139/60 138/64 147/66 H Pulse Oximetry Oxygen Delivery 01/15/24 12:45 01/15/24 12:59 01/15/24 20:00 Temperature Pulse Rate 65 62 62 Respiratory Rate Blood Pressure 142/61 H 149/64 H Pulse Oximetry Oxygen Delivery 01/15/24 20:00 01/15/24 22:00 01/15/24 23:56 Temperature 97.7 F Pulse Rate 62 50 L 44 L Respiratory Rate 20 20 Blood Pressure 131/48 L Pulse Oximetry 94 96 Oxygen Delivery Room Air 01/16/24 00:00 01/16/24 00:00 01/16/24 02:00 Temperature Pulse Rate 41 L 41 L 46 L Respiratory Rate 20 Blood Pressure Pulse Oximetry 96 Oxygen Delivery Room Air 01/16/24 04:00 01/16/24 04:00 01/16/24 04:34 Temperature 97.6 F Pulse Rate 53
[2024-01-16] MEDS: methocarbamoL 500 MG TABLET PO ×3 (08:18→16:39)
[2024-01-16] MEDS: ACIDOPHILUS/BULGARICUS CHEWABLE TABLET 1 TABLET PO ×3 (08:18→16:39)
[2024-01-16] MEDS: TAMSULOSIN HCL 0.4 MG CAPSULE PO (08:19)
[2024-01-16] MEDS: ASPIRIN 81 MG CHEWABLE TABLET PO (08:19)
[2024-01-16] MEDS: OMEGA 3 POLYUNSAT FATTY ACIDS 1 GM CAP PO (08:19)
[2024-01-16] MEDS: SEVELAMER CARBONATE 800 MG TABLET PO ×3 (08:19→16:39)
[2024-01-16] MEDS: SITagliptin PHOSPHATE 100 MG TABLET PO (08:19)
[2024-01-16] MEDS: PANTOPRAZOLE 40 MG TABLET PO (08:19)
[2024-01-16] MEDS: SERTRALINE HCL 50 MG TABLET PO (08:19)
[2024-01-16] MEDS: FOLIC ACID 1 MG TABLET PO (08:19)
[2024-01-16] MEDS: MULTIVITAMINS THERAPEUTIC TAB (*BKC) 1 TABLET PO (08:20)
[2024-01-16] MEDS: FERROUS SULFATE 325 MG TABLET DR BY MOUTH (08:20)
[2024-01-16] MEDS: MIDODRINE HCL 10 MG TABLET PO ×2 (08:20→16:39)
[2024-01-16 09:16] LABS: Glucose Point of Care 106 mg/dl (65-105)
--- NOTE | 2024-01-16 09:44 | PCOTNOTE ---
Attempted to see pt. for occupational therapy evaluation. Pt. declines interest in participation at this time. Pt. reports he just started receiving therapy services at this time at his facility to address L hand contracture (currently wearing splint) and eventually plans to transition to using slide board, currently using jason sling for transfers to wheel chair. Pt. would like to continue services at faciliaty, but declines participation in therapy services at hospital. Nursing aware.
--- NOTE | 2024-01-16 11:58 | PM.IMPN ---
Progress Note: A&P Assessment and Plan (1) Hyperkalemia: Code(s): E87.5 - Hyperkalemia Status: Acute (2) Bradycardia: Code(s): R00.1 - Bradycardia, unspecified Status: Acute (3) Fall: Code(s): W19.XXXA - Unspecified fall, initial encounter Status: Acute (4) End-stage renal disease on hemodialysis: Code(s): N18.6 - End stage renal disease; Z99.2 - Dependence on renal dialysis Status: Acute (5) Thrombocytopenia: Code(s): D69.6 - Thrombocytopenia, unspecified Status: Acute (6) Anemia of chronic disease: Code(s): D63.8 - Anemia in other chronic diseases classified elsewhere Status: Acute (7) Chronic combined systolic and diastolic heart failure: Code(s): I50.42 - Chronic combined systolic (congestive) and diastolic (congestive) heart failure Status: Acute Plan The patient presented to the emergency department for evaluation of head and neck pain after his wheelchair tipped back while being transferred via [employer] lift as per HPI. Labs, imaging, EKG, and all reports were personally reviewed. CT of the brain and cervical spine did not show any acute findings. Labs were checked as he missed dialysis last Saturday due to no transportation at his nursing facility. Potassium was greater than 6 and he was treated appropriately for that. He is being admitted for dialysis this evening. He has been bradycardic in the 40s to 50s which is not unusual for him. Pt sp dialysis today Continue PT/ OT Cardiology feels- Pt does not need pacemaker at this time correct potassium dialysis in AM and dc Subjective Date/time seen: 01/16/24 11:58 Interval history: 58-year-old male with end-stage renal disease on hemodialysis, chronic anemia, combined systolic and diastolic congestive heart failure, coronary artery disease, hypertension, hyperlipidemia type 2 diabetes mellitus, and other comorbidities who presented to the emergency department via EMS from [facility] for evaluation after a fall. The patient provides the following history. He was being transferred back to his wheelchair using a Azucena lift when the wheelchair tipped over causing him to fall back and hit his head on the floor. He was sent in for imaging after complaining of a headache and neck soreness thereafter. Vital signs were stable on arrival; he is bradycardic in the 40s to 50s which is pretty common for him. Brain and cervical spine CT scan did not show any acute findings. Labs showed a potassium of 6.0 and with further questioning he reports that he missed dialysis on Saturday as his nursing facility did not have transportation for him. He was due for dialysis this morning but was instead sent to the ER after in the fall from the Azucena left. Pt doing better today pt sp dialysis today Tele shows some bradycardia with LBBB Cardiology consulted no need for pacemaker at this time Potassium low today hope to correct Pt for dialysis cassidy hopeful Dc cassidy Review of Systems Review of Systems: no acute issues overnite Exam Narrative: General:?Chronically ill-appearing gentleman Neck:??Supple. Respiratory:?Respirations are nonlabored and lungs are clear to auscultation. Cardiovascular:??Bradycardic in the 50s with S1-S2. Gastrointestinal:??Abdomen is soft, nontender, and nondistended with positive bowel sounds. Skin:??Warm and dry. Generalized pallor. Some bruising over the left knee. Extremities:??No cyanosis or clubbing. Right upper extremity fistula with palpable thrill in October. Status post bilateral [id number] amputations. Neurological:??Alert.? Cranial nerves 2-12 are grossly intact. Generalized weakness without gross focal findings. Psychiatric:?Appropriate mood and affect. Objective Data Vital Signs Vital Signs: Vital Signs - 24 hr 01/15/24 13:30 01/15/24 12:00 01/15/24 14:00 Temperature Pulse Rate 55 L 56 L Respiratory Rate Blood Pressure Pu
--- NOTE | 2024-01-16 12:55 | PM.PNNEP ---
Progress Note: A&P Assessment and Plan (1) ESRD (end stage renal disease): Code(s): N18.6 - End stage renal disease Status: Chronic Assessment and Plan: HD tomorrow continue M/W/F schedule while hospitalized follow electrolytes, volume status, and clearance (2) Hyperkalemia: Code(s): E87.5 - Hyperkalemia Status: Acute Assessment and Plan: resolved likely secondary to missed dialysis treatment s/p medical management in the ER further correction with dialysis on admission follow trend (3) Fall: Code(s): W19.XXXA - Unspecified fall, initial encounter Status: Acute Assessment and Plan: occurred at nursing facility during jason lift transfer imaging reviewed no significant trauma aside for left occiput scalp hematoma supportive therapy (4) Anemia: Code(s): D64.9 - Anemia, unspecified Status: Chronic Assessment and Plan: due to ESRD and worsened by #2 Epogen with HD follow trend of H/H (5) Diabetes mellitus with multiple complications: Code(s): E11.8 - Type 2 diabetes mellitus with unspecified complications Status: Chronic Assessment and Plan: follow Accu-Cheks glycemic control per hospitalists Not opposed to discharge from renal perspective if otherwise medically stable. Will continue to follow. Subjective Date/time seen: 01/16/24 12:55 Interval history: Follow-up for end stage renal disease on hemodialysis. Tolerated hemodialysis treatment yesterday without any issue or problems; seen by Cardiology regarding bradycardia but felt no intervention required at this time; no apparent distress voiced at the time of my visit. Exam Narrative: General: WD/WN male in NAD Heart: normal S1 and S2; no rub Lungs: clear anteriorly; dereased at bases Abdomen: soft, nontender, nondistended, positive bowel sounds; s/p bilateral BKAs Extremities: no cyanosis or clubbing; no edema Skin: warm and dry Objective Data Vital Signs Vital Signs: Vital Signs Temp Pulse Resp BP Pulse Ox O2 Del Method 01/16/24 11:36 97.5 F L 58 L 18 142/53 H 96 01/16/24 08:00 60 24 H 93 Room Air 01/16/24 08:00 76 01/16/24 07:50 98.1 F 60 24 H 165/75 H 93 01/16/24 06:00 53 L 01/16/24 04:34 97.6 F 51 L 20 147/49 H 97 01/16/24 04:00 53 L 20 96 Room Air 01/16/24 04:00 53 L 01/16/24 02:00 46 L 01/16/24 00:00 41 L 20 96 Room Air 01/16/24 00:00 41 L 01/15/24 23:56 97.7 F 44 L 20 131/48 L 96 01/15/24 22:00 50 L 01/15/24 20:00 62 20 94 Room Air 01/15/24 20:00 62 01/15/24 20:30 97.0 F L 56 L 20 129/53 L 94 01/15/24 18:00 59 L 01/15/24 16:00 Room Air 01/15/24 16:00 59 L 01/15/24 15:58 97.9 F 59 L 20 145/57 H 94 Intake/Output Intake/Output: Intake & Output 01/13/24 01/14/24 01/15/24 01/16/24 23:59 23:59 23:59 23:59 Intake Total 1200 1860 1155 Output Total 1913 0 600 0 Balance -1913 1200 1260 1155 Meds/Results Medications: Active Medications Generic Name Dose Route Start Last Admin Trade Name Freq PRN Reason Stop Dose Admin Acetaminophen 650 mg 01/13/24 22:37 01/14/24 20:20 Acetaminophen 325 Mg Tablet PO 650 mg Q6H PRN Administration Pain (Scale Score 1-3) Aspirin 81 mg 01/14/24 08:00 01/16/24 08:19 Aspirin 81 Mg Chewable Tablet PO 81 mg DAILY@0800 SALVADOR Administration Atorvastatin Calcium 40 mg 01/13/24 23:00 01/15/24 20:39 Atorvastatin 40 Mg Tablet PO 40 mg HS SALVADOR Administration Dextrose 12.5 gm 01/13/24 12:16 Dextrose 50% 25 Gm/50 Ml Syringe IV PUSH PRN PRN Hypoglycemia Protocol Diphenoxylate HCl/Atropine 2 tablet 01/13/24 22:37 01/15/24 08:33 Diphenoxylate/Atropine (*Crx) 2.5 Mg Tablet PO 2 tablet TID PRN Administration Diarrhea Ferrous Sulfate 325 mg 01/14/24 09:00 01/15
[2024-01-16] MEDS: POTASSIUM CHLORIDE 20 MEQ ER TABLET 40 MEQ PO (13:02)
[2024-01-16 16:26] LABS: Glucose Point of Care 93 mg/dl (65-105)
[2024-01-16] MEDS: GABAPENTIN 100 MG CAPSULE 200 MG PO (20:47)
[2024-01-16] MEDS: ATORVASTATIN 40 MG TABLET PO (20:47)
[2024-01-16] MEDS: MIRTAZAPINE 15 MG TABLET PO (20:48)
[2024-01-16 20:54] LABS: Glucose Point of Care 127 mg/dl (65-105)
--- NOTE | 2024-01-16 22:52 | PC.NURSE ---
This patient, Kobi Salter, was transferred to [ [id number]] on 01/16/24 at 2252. Personal belongings sent with patient. Report given to [Pinky ponce ]. Appropriate documentation sent with patient.
[2024-01-17] VITALS (22 sets, daily range): BP systolic 133–161; BP diastolic 49–70; PULSE 53–76; RESP 18–20; TEMP 36.4–37; O2SAT 91–96
[2024-01-17 07:02] LABS: Anion Gap 7 mmol/L (4-12); Blood Urea Nitrogen 33 mg/dL (9-20); Calcium 8.2 mg/dL (8.4-10.2); Carbon Dioxide 26 mmol/L (22-30); Chloride 107 mmol/L (98-107); Estimated CRCL calculation 18 ml/min; Estimated Glomerular Filt Rate 14; Glucose 109 mg/dL (65-110); Potassium 5.3 mmol/L (3.4-5.0); Sodium 140 mmol/L (137-145)
[2024-01-17 07:23] LABS: Glucose Point of Care 108 mg/dl (65-105)
[2024-01-17 07:32] LABS: Albumin Level 3.2 g/dL (3.5-5.1); Anion Gap 8 mmol/L (4-12); Blood Urea Nitrogen 33 mg/dL (9-20); Calcium 8.2 mg/dL (8.4-10.2); Carbon Dioxide 24 mmol/L (22-30); Chloride 108 mmol/L (98-107); Estimated CRCL calculation 18 ml/min; Estimated Glomerular Filt Rate 14; Glucose 110 mg/dL (65-110); Phosphorus 3.5 mg/dL (2.5-4.5); Potassium 5.2 mmol/L (3.4-5.0); Sodium 140 mmol/L (137-145)
[2024-01-17] MEDS: HEPARIN SODIUM 1,000 UNITS/ML VIAL 1000 UNITS (08:34)
--- NOTE | 2024-01-17 09:00 | PM.PNNEP ---
Progress Note: A&P Assessment and Plan (1) ESRD (end stage renal disease): Code(s): N18.6 - End stage renal disease Status: Chronic Assessment and Plan: HD today continue M/W/F schedule while hospitalized follow electrolytes, volume status, and clearance (2) Hyperkalemia: Code(s): E87.5 - Hyperkalemia Status: Acute Assessment and Plan: resolved likely secondary to missed dialysis treatment s/p medical management in the ER further correction with dialysis on admission follow trend (3) Fall: Code(s): W19.XXXA - Unspecified fall, initial encounter Status: Acute Assessment and Plan: occurred at nursing facility during jason lift transfer imaging reviewed no significant trauma aside for left occiput scalp hematoma supportive therapy (4) Anemia: Code(s): D64.9 - Anemia, unspecified Status: Chronic Assessment and Plan: due to ESRD and worsened by #2 Epogen with HD follow trend of H/H (5) Diabetes mellitus with multiple complications: Code(s): E11.8 - Type 2 diabetes mellitus with unspecified complications Status: Chronic Assessment and Plan: follow Accu-Cheks glycemic control per hospitalists Not opposed to discharge from renal perspective if otherwise medically stable. Will continue to follow. Subjective Date/time seen: 01/17/24 09:00 Interval history: Follow-up for end stage renal disease on hemodialysis. Tolerating hemodialysis treatment at the time of my visit (seen on HD at 8:50AM); no apparent distress noted; no issues/events overnight or earlier this morning; resting comfortably when seen currently; has been seen by Cardiology regarding bradycardia and felt no intervention needed at this time. Exam Narrative: General: WD/WN male in NAD Heart: normal S1 and S2; no rub Lungs: clear anteriorly; dereased at bases Abdomen: soft, nontender, nondistended, positive bowel sounds; s/p bilateral BKAs Extremities: no cyanosis or clubbing; no edema Skin: warm and intact Objective Data Vital Signs Vital Signs: Vital Signs Temp Pulse Resp BP Pulse Ox O2 Del Method 01/17/24 09:00 65 135/61 01/17/24 08:45 57 L 146/62 H 01/17/24 08:37 56 L 141/58 H 01/17/24 05:24 97.8 F 55 L 20 141/68 H 95 01/17/24 00:00 Room Air 01/16/24 23:15 97.2 F L 63 20 151/59 H 95 01/16/24 20:00 58 L 16 93 Room Air 01/16/24 20:37 97.8 F 67 16 133/50 L 93 01/16/24 15:54 97.9 F 51 L 16 161/64 H 94 Intake/Output Intake/Output: Intake & Output 01/14/24 01/15/24 01/16/24 01/17/24 23:59 23:59 23:59 23:59 Intake Total 1200 1860 1895 200 Output Total 0 600 0 0 Balance 1200 1260 1895 200 Meds/Results Medications: Active Medications Generic Name Dose Route Start Last Admin Trade Name Saulo PRN Reason Stop Dose Admin Acetaminophen 650 mg 01/13/24 22:37 01/14/24 20:20 Acetaminophen 325 Mg Tablet PO 650 mg Q6H PRN Administration Pain (Scale Score 1-3) Aspirin 81 mg 01/14/24 08:00 01/16/24 08:19 Aspirin 81 Mg Chewable Tablet PO 81 mg DAILY@0800 SALVADOR Administration Atorvastatin Calcium 40 mg 01/13/24 23:00 01/16/24 20:47 Atorvastatin 40 Mg Tablet PO 40 mg HS SALVADOR Administration Dextrose 12.5 gm 01/13/24 12:16 Dextrose 50% 25 Gm/50 Ml Syringe IV PUSH PRN PRN Hypoglycemia Protocol Diphenoxylate HCl/Atropine 2 tablet 01/13/24 22:37 01/15/24 08:33 Diphenoxylate/Atropine (*Crx) 2.5 Mg Tablet PO 2 tablet TID PRN Administration Diarrhea Epoetin Bradford-epbx 10,000 units 01/17/24 20:00 01/17/24 10:33 Epoetin Bradford-Epbx 10,000 Units/Ml Vial IV PUSH 01/17/24 20:01 10,000 units ONCE ONE Administration Ferrous Sulfate 325 mg 01/14/24 09:00 01/16/24 08:20 Ferrous Sulfate [address] BY MOUTH 325 mg DAILY SALVADOR Administration Fish Oil 1 gm
--- NOTE | 2024-01-17 10:19 | PCOTNOTE ---
Attempted to see pt. for occupational therapy evaluation. Pt. in dialysis at this time. Nursing and CC aware. CC confirms therapy evaluation may not be necessary for pt. to continue to receive appropriate services at [facility] to address chronic conditions. Following
[2024-01-17] MEDS: EPOETIN ALFA-EPBX 10,000 UNITS/ML VIAL 10000 UNITS IV PUSH (10:33)
[2024-01-17] MEDS: HEPARIN SODIUM 1,000 UNITS/ML VIAL 2000 UNITS (10:33)
[2024-01-17 11:38] LABS: Glucose Point of Care 85 mg/dl (65-105)
[2024-01-17] MEDS: SITagliptin PHOSPHATE 100 MG TABLET PO (13:37)
[2024-01-17] MEDS: OMEGA 3 POLYUNSAT FATTY ACIDS 1 GM CAP PO (13:37)
[2024-01-17] MEDS: FERROUS SULFATE 325 MG TABLET DR BY MOUTH (13:37)
[2024-01-17] MEDS: FOLIC ACID 1 MG TABLET PO (13:37)
[2024-01-17] MEDS: TAMSULOSIN HCL 0.4 MG CAPSULE PO (13:37)
[2024-01-17] MEDS: MULTIVITAMINS THERAPEUTIC TAB (*BKC) 1 TABLET PO (13:37)
[2024-01-17] MEDS: PANTOPRAZOLE 40 MG TABLET PO (13:37)
[2024-01-17] MEDS: ASPIRIN 81 MG CHEWABLE TABLET PO (13:37)
[2024-01-17] MEDS: methocarbamoL 500 MG TABLET PO ×2 (13:37→18:09)
[2024-01-17] MEDS: ACIDOPHILUS/BULGARICUS CHEWABLE TABLET 1 TABLET PO ×2 (13:37→18:09)
[2024-01-17] MEDS: SERTRALINE HCL 50 MG TABLET PO (13:37)
[2024-01-17] MEDS: SEVELAMER CARBONATE 800 MG TABLET PO ×2 (13:37→18:10)
[2024-01-17] MEDS: MIDODRINE HCL 10 MG TABLET PO ×2 (13:40→18:10)
--- NOTE | 2024-01-17 14:17 | PM.DS ---
DS: Admitting Diagnosis Discharge Date 01/17/2024 Admitting Diagnosis Fall DS: Discharge Diagnosis Discharge Diagnosis (1) Hyperkalemia: Code(s): E87.5 - Hyperkalemia Status: Acute (2) Bradycardia: Code(s): R00.1 - Bradycardia, unspecified Status: Acute (3) Fall: Code(s): W19.XXXA - Unspecified fall, initial encounter Status: Acute (4) End-stage renal disease on hemodialysis: Code(s): N18.6 - End stage renal disease; Z99.2 - Dependence on renal dialysis Status: Acute (5) Thrombocytopenia: Code(s): D69.6 - Thrombocytopenia, unspecified Status: Acute (6) Anemia of chronic disease: Code(s): D63.8 - Anemia in other chronic diseases classified elsewhere Status: Acute (7) Chronic combined systolic and diastolic heart failure: Code(s): I50.42 - Chronic combined systolic (congestive) and diastolic (congestive) heart failure Status: Acute DS: Summary Hospital Course Hospital Course: The patient presented to the emergency department for evaluation of head and neck pain after his wheelchair tipped back while being transferred via [employer] lift. CT of the brain and cervical spine did not show any acute findings. Labs were checked as he missed dialysis last Saturday due to no transportation at his nursing facility. Potassium was greater than 6 and he was treated appropriately for that. He was also noted to be bradycardic in the 40s to 50s which is not unusual for him. Cardiology was consulted Hyperkalemia resolved with treatment. Bradycardia resolved. Intermittent first-degree and second-degree type 1 av block noted. No need for pacemaker. Follow-up with cardiology as an outpatient basis. Type 2 diabetes Chronic anemia Chronic thrombocytopenia Chronic systolic and diastolic congestive heart failure Coronary artery disease Hypertension Hyperlipidemia Peripheral vascular disease Wheelchair-bound DVT prophylaxis Time Spent with Patient Time attestation: Total time spent providing and/or coordinating discharge services: 35 minutes Exam Narrative: General:?Chronically ill-appearing gentleman not in acute distress Neck:??Supple. Respiratory:?Respirations are nonlabored and lungs are clear to auscultation. Cardiovascular:??Bradycardic in the 50s with S1-S2. Gastrointestinal:??Abdomen is soft, nontender, and nondistended with positive bowel sounds. Skin:??Warm and dry. Generalized pallor. Some bruising over the left knee. Extremities:??No cyanosis or clubbing. Right upper extremity fistula with palpable thrill in October. Status post bilateral [id number] amputations. Neurological:??Alert.? Cranial nerves 2-12 are grossly intact. Generalized weakness without gross focal findings. Psychiatric:?Appropriate mood and affect. DS: Data Data Completed and Pending Labs on day of discharge: Labs from last 24 hours 01/17/24 01/17/24 01/17/24 11:32 07:16 06:13 Sodium Potassium Chloride Carbon Dioxide Anion Gap BUN Creatinine Estim Creat Clear Calc Estimated GFR Glucose POC Capillary Glucose 85 108 H Calcium 8.2 L Phosphorus 3.5 Albumin 3.2 L 01/17/24 01/17/24 01/17/24 06:13 06:13 06:13 Sodium Potassium Chloride Carbon Dioxide Anion Gap BUN Creatinine Estim Creat Clear Calc 18 Estimated GFR 14 L 14 L Glucose 110 109 POC Capillary Glucose Calcium 8.2 L Phosphorus Albumin 01/17/24 01/17/24 01/17/24 06:13 06:13 06:13 Sodium Potassium Chloride Carbon Dioxide Anion Gap 8 BUN 33 H 33 H D Creatinine 4.40 H 4.40 H Estim Creat Clear Calc 18 Estimated GFR Glucose POC Capillary Glucose Calcium Phosphorus Albumin 01/17/24 01/17/24 01/17/24 06:13 06:13 06:13 Sodium Potassium 5.2 H Chloride 108 H 107 Carbon Dioxide 24 26 Anion Gap 7 BUN Creatinine Estim Creat
[2024-01-17 16:41] LABS: Glucose Point of Care 109 mg/dl (65-105)
[2024-01-17 17:42] LABS: SARS-CoV-2 RNA PCR Negative (Negative)
[2024-01-17] MEDS: GABAPENTIN 100 MG CAPSULE 200 MG PO (20:19)
[2024-01-17] MEDS: ATORVASTATIN 40 MG TABLET PO (20:20)
[2024-01-17] MEDS: MIRTAZAPINE 15 MG TABLET PO (20:20)
[2024-01-17 20:48] LABS: Glucose Point of Care 134 mg/dl (65-105)
[2024-01-20 08:46] LABS: Glucose Point of Care 155 mg/dl (65-105)
== END 2024-01-17 22:15 | DRG 640 ==
LOC: ANHED 13:43 → ANHIMU 13:48 → ANH3MEDSUR 01-16 22:52
PROVIDERS: Family Medicine; Internal Medicine Nephrology; Nurse Practitioner Acute Care; Admitting Provider General Practice; Emergency Provider General Practice; PCP Hospitalist; Visit Provider Internal Medicine
DX: E87.5 Hyperkalemia (principal); N18.6 End stage renal disease; I13.2 Hypertensive heart and chronic kidney disease with heart failure and with stage 5 chronic kidney disease, or end stage renal disease; I50.42 Chronic combined systolic (congestive) and diastolic (congestive) heart failure; R00.1 Bradycardia, unspecified; I44.0 Atrioventricular block, first degree; I44.1 Atrioventricular block, second degree; S00.03XA Contusion of scalp, initial encounter; W17.89XA Other fall from one level to another, initial encounter; D63.1 Anemia in chronic kidney disease; D69.6 Thrombocytopenia, unspecified; E11.22 Type 2 diabetes mellitus with diabetic chronic kidney disease; E78.5 Hyperlipidemia, unspecified; E11.51 Type 2 diabetes mellitus with diabetic peripheral angiopathy without gangrene; E11.42 Type 2 diabetes mellitus with diabetic polyneuropathy; F41.9 Anxiety disorder, unspecified; F32.A Depression, unspecified; G47.33 Obstructive sleep apnea (adult) (pediatric); I25.10 Atherosclerotic heart disease of native coronary artery without angina pectoris; I48.0 Paroxysmal atrial fibrillation; Z99.2 Dependence on renal dialysis; Z99.3 Dependence on wheelchair; Z79.82 Long term (current) use of aspirin; Z95.5 Presence of coronary angioplasty implant and graft; Z79.84 Long term (current) use of oral hypoglycemic drugs; Z89.512 Acquired absence of left leg below knee; Z89.511 Acquired absence of right leg below knee; Z98.49 Cataract extraction status, unspecified eye; Z96.1 Presence of intraocular lens; Z66 Do not resuscitate; Z11.52 Encounter for screening for COVID-19
CPT/HCPCS: 36415; 70450; 71045; 72125; 80048; 80053; 80069; 82948; 83735; 85025; 85055; 85610; 85730; 86706; 87340; 87635; 93005; 99285; A9270; G0257; J0612; J1644; J1815; J7030; P9047; Q5105

== ENCOUNTER 2024-03-02 21:53 | Inpatient (IN) | payer OTHER, SELFPAY ==
--- NOTE | ~2024-03-02 | XR_ITS ---
EXAMINATION: XR chest 1V portable Exam Date/Time: 03/02/2024 22:25 CDT HISTORY: sob, cough Comparison: 01/13/2024. RESULT: Lines, tubes, and devices: Intact sternotomy wires. Ostial markers and mediastinal surgical clips. A n electronic device projects over the left upper chest. Lungs and pleura: Leftward rotation. Low volumes with crowding. Mild diffuse reticular opacities. St reaky bibasilar opacities, likely scar/atelectasis. Minimal bilateral costophrenic angle blunting. Cardiomediastinal silhouette: Stable. Other: No acute osseous or upper abdominal finding. IMPRESSION: Mild interstitial edema, similar to the prior examination. Possible small bilateral effusions. Reviewed, dictated and finalized at location K. IMPRESSION: Mild interstitial edema, similar to the prior examination. Possible small bilat eral effusions.
--- NOTE | ~2024-03-02 | CT_ITS ---
EXAMINATION: CT diagnostic chest wo con DATE: 03/02/2024 23:37 INDICATION: fever, productive cough TECHNIQUE: Computed tomography (CT) of the chest was performed with 100 mL Omnipaque-350 intravenous contrast. Automated exposure control and iterative reconstruction technique were employed. The dose-l ength product was 500.70 mGy-cm. COMPARISON: None. FINDINGS: CHEST: Thoracic aorta: No significant dilation or calcification. Lung parenchyma and airways: Low volumes. Septal thickening. Rounded atelectasis in the dependent lef t lower lobe. Bibasilar atelectasis/scar. 13 mm cystic density at the right lung base of doubtful cli nical significance. Thoracic inlet, axillae and chest wall: No thyroid or soft tissue mass. Status post CABG. No axillary lymphadenopathy. Mediastinum: Multiple enlarged mediastinal lymph nodes. Mildly patulous thoracic esophagus with intra luminal fluid. Dilated central pulmonary arteries as can be seen with pulmonary arterial hypertension . Heart and pericardium: Cardiomegaly. No pericardial effusion. Coronary artery calcifications: Heavy. Pleura: Dependent left pleural thickening. Upper abdomen: No significant finding. Thoracic bones: No acute osseous finding in the chest. IMPRESSION: Mild interstitial edema. Mediastinal lymphadenopathy. Reviewed, dictated and finalized at location K.
[2024-03-02 21:59] VITALS: BP 135/65; PULSE 76; RESP 24; TEMP 38; O2SAT 87
--- NOTE | 2024-03-02 21:59 | ECG_ITS ---
Test Date: 2024-03-02 22:04:54 Measurements Intervals [place] Rate: 73 P: 0 [place]: 0 QRS: -77 QRSD: 139 T: 93 QT: 424 QTc: 470 Interpretive Statements SINUS RHYTHM WITH SECOND DEGREE AV BLOCK, TYPE I LEFT BUNDLE BRANCH BLOCK BASELINE ARTIFACT- I, II, III, AVR, AVL, AVF, V1 ABNORMAL ECG No previous ECG available for comparison Electronically Signed On 03-03-2024 06:23:29 CDT by Nasim Gee D.O.
[2024-03-02 22:03] VITALS: O2SAT 97
[2024-03-02 22:42] LABS: Basophils Percent Auto 0.6 % (0.2-1.2); Eosinophils Percent Auto 0.3 % (0-4.4); Hematocrit 32.7 % (42.0-52.0); Hemoglobin 10.2 g/dL (14.0-18.0); Immature Granulocyte Absolute 0.01 K/mm3 (0.00-0.031); Immature Granulocyte Percent A 0.3 % (0-0.5); Immature Platelet Fraction Pct 5.7 % (0.9-11.2); Lymphocytes Absolute Auto 0.28 K/mm3 (0.9-3.2); Lymphocytes Percent Auto 7.7 % (18.3-44.2); Mean Corpuscular HGB Conc 31.2 g/dl (32-36); Mean Corpuscular Hemoglobin 30.8 pg (26-34); Mean Corpuscular Volume 98.8 fl (80-100); Mean Platelet Volume 12.1 fl (7.4-10.4); Monocytes Absolute Auto 0.5 K/mm3 (0.1-0.6); Monocytes Percent Auto 12.7 % (2.6-8.5); Neutrophils Absolute Auto 2.8 K/mm3 (1.3-6.7); Neutrophils Percent Auto 78.4 % (45.5-73.1); Platelet Count Result 81 k/mm3 (150-375); Red Blood Count 3.31 M/mm3 (4.6-6.20); Red Cell Distribution Width 15.6 % (11.5-14.5); White Blood Count 3.6 K/mm3 (4.5-10.0)
--- NOTE | 2024-03-02 22:44 | ED_ITS ---
HPI - SOB/Dyspnea General Chief Complaint: Shortness of Breath/Dyspnea <Isi Cuadra PA-C - Last Filed: 03/03/24 17:18> Stated Complaint: SOB, COUGH; ON HD <JAZLYN Alves Last Filed: 03/03/24 17:18> Time Seen by Provider: 03/02/24 22:25 <Isi Cuadra PA-C - Last Filed: 03/03/24 17:18> Source: patient <JAZLYN Alves Last Filed: 03/03/24 17:18> Mode of arrival: EMS <JAZLYN Alves Last Filed: 03/03/24 17:18> Limitations: other (poor historian) <Isi Cuadra PA-C - Last Filed: 03/03/24 17:18> History of Present Illness HPI Narrative: This is a 58 year old male that presents to the ER for productive cough. Ongoing since yesterday. Reports chest pain with coughing. Reports shortness of breath. Noted to be febrile in the ED. Placed on 2L NC for hypoxia. <Isi Cuadra PA-C - Last Filed: 03/03/24 17:18> Related Data Home Medications: Home Medications Medication Instructions Recorded Confirmed ferrous sulfate 325 mg (65 mg 325 mg PO DAILY 06/01/20 03/03/24 iron) tablet multivitamin 1 tablet PO DAILY 06/01/20 03/03/24 nitroglycerin 0.4 mg sublingual 0.4 mg sublingual Q5-15M PRN Chest 06/01/20 03/03/24 tablet Pain omega-3 fatty acids-fish oil 360 1 cap PO DAILY 06/01/20 03/03/24 mg-1,200 mg capsule atorvastatin 40 mg tablet (Lipitor) 40 mg PO HS 12/23/20 03/03/24 folic acid 1 mg tablet 1 mg PO DAILY 12/23/20 03/03/24 gabapentin 100 mg tablet 200 mg PO HS 12/23/20 03/03/24 sevelamer carbonate 800 mg tablet 800 mg PO TID 12/23/20 03/03/24 tamsulosin 0.4 mg capsule (Flomax) 0.4 mg PO DAILY 12/23/20 03/03/24 linagliptin 5 mg tablet (Tradjenta) 5 mg PO DAILY 01/13/23 03/03/24 mirtazapine 15 mg tablet 15 mg PO HS 01/13/23 03/03/24 sertraline 50 mg tablet 25 mg PO HS 01/13/23 03/03/24 Lactobacillus acidophilus 100 mmu cells PO TID 09/17/23 03/03/24 aspirin 81 mg tablet 81 mg PO DAILY 09/17/23 03/03/24 meclizine 25 mg tablet 25 mg PO Q8H PRN Dizziness 09/17/23 03/03/24 midodrine 10 mg tablet 10 mg PO BID 09/17/23 03/03/24 omeprazole 20 mg capsule,delayed 20 mg PO DAILY 09/17/23 03/03/24 release oxycodone 5 mg tablet 5 mg PO Q4H PRN Pain (Scale Score 09/17/23 03/03/24 7-10) diphenoxylate-atropine 2.5 2 tablet PO TID PRN Diarrhea 09/18/23 03/03/24 mg-0.025 mg tablet (Lomotil) acetaminophen 325 mg tablet 650 mg PO Q6H PRN Pain (Scale 10/29/23 03/03/24 (Tylenol) Score 1-3) methocarbamol 500 mg tablet 500 mg PO TID 10/29/23 03/03/24 naloxone 4 mg/actuation nasal spray 1 spray intranasal Q3M PRN Opioid 10/29/23 03/03/24 Overdose sennosides 8.6 mg-docusate sodium 1 tablet PO BID PRN Constipation 10/29/23 03/03/24 50 mg tablet (Senna Plus) tramadol 50 mg tablet 50 mg PO Q4H PRN Pain (Scale Score 01/13/24 03/03/24 4-6) guaifenesin 100 mg/5 mL oral syrup 600 mg PO Q8H PRN Cough 03/03/24 03/03/24 lanolin alcohols-mineral 1 applic topical QPM 03/03/24 03/03/24 oil-w.petrolatum-ceresin topical cream (Eucerin topical cream) menthol 0.44 %-zinc oxide 20.6 % 1 applic topical BID 03/03/24 03/03/24 topical ointment (Calmoseptine) <Isi Cuadra PA-C - Last Filed: 03/03/24 17:18> Allergies/Adverse Reactions: Allergies Allergy/AdvReac Type Severity Reaction Status Date / Time Penicillins Allergy Unknown Unknown Verified 02/20/24 10:05 bee venom protein (honey bee) Allergy Swelling Verified 02/20/24 10:05 <Isi Cuadra PA-C - Last Filed: 03/03/24 17:18> Review of Systems Review of Systems: CONSTITUTIONAL: Reports fever ENT: Reports congestion CARDIOVASCULAR: Reports chest pain. Denies edema. RESPIRATORY: Reports cough and dyspnea. <JAZLYN Alves Last Filed: 03/03/24 17:18> All systems reviewed & are unremarkable except as noted in HPI and below <Isi Cuadra PA-C - Last Filed: 03/03/24 17:18> [facility] Past Medical History Medical History: Medical History Anemia of chronic disease Anxiety and depression Arthritis Clostridium difficile diarrhea Combined systolic and diastolic congestive heart failure Coronary artery disease History of multiple stents and 4 vessel bypass. Diabetic nephropathy Diabetic neuropathy Diabetic peripheral neuropathy End-stage renal disease on hemodialysis Hyperlipidemia MRSA infection Obstructive sleep apnea does not use a CPAP Paroxysmal atrial fibrillation Transient atrial fibrillation following bypass surgery. Type 2 diabetes mellitus <Isi Cuadra PA-C - Last Filed: 03/03/24 17:18> Surgical History Surgical History: Surgical History History of amputation of toe Left 5th toe 2013 small toe on the right amputated History of cardiac catheterization History of cataract extraction with lens replacement History of coronary artery stent placement History of five vessel coronary artery bypass (2018) Done at [facility] [address] History of left below knee amputation History of right below knee amputation <Isi Cuadra PA-C - Last Filed: 03/03/24 17:18> Family History Family History: Family History Sibling Patient's sister is Diabetes mellitus Sister Acute myocardial infarction Three brothers and 2 sisters History of blood clots Sister Abdominal aortic aneurysm Sister Dementia Brother COPD (chronic obstructive pulmonary disease) Brother Father Acute myocardial infarction, Onset Age: 65 Mother History of blood clots Hypertension, Onset Age: 80 <Isi Cuadra PA-C - Last Filed: 03/03/24 17:18> Social History Social History: Social History Social History: Surrogate medical decision maker: Melodie Roca (niece) or Alejandra Murray (sister). Code status: Do not resuscitate. Smoking packs per day: 0.25 Smoking cigarettes per day: 5.0 Smoking status: Former smoker Alcohol intake: former Drinks per week: 2 Alcohol use details: Social alcohol use. Substance use: former Substance use type: marijuana Last use: 2019 Do You Feel Safe in your Home?: Yes Lack of Transportation: No Lack of Food: Never True Current Housing: Decline to Answer Concerned About Future Housing: No Difficulty Paying Gas/Electric Bills: No Difficulty Paying for Meds: No Currently Unemployed: No Education: Decline to Answer Difficulty w/ Childcare or Family Care: No Additional living arrangements comments: [facility]. Additional occupation/education comments: Disabled. Spiritual care concerns: No <JAZLYN Alves Last Filed: 03/03/24 17:18> Exam Narrative: GENERAL: Chronically ill-appearing, well-nourished, and in no acute distress. HEAD: Normocephalic, atraumatic. EYES: PERRLA and EOMI. ENT: Nares clear, no rhinorrhea or epistaxis. Mucous membranes moist. Oropharynx without tonsillar hypertrophy exudate or other lesions. NECK: Supple. No adenopathy or masses. CHEST: No respiratory distress. Lung sounds coarse. No rales or rhonchi HEART: Regular rate and rhythm. No murmur heard. Normal peripheral pulses. EXTREMITIES: Normal range of motion. No edema. Bilateral BKA SKIN: Warm, dry, no rash. NEURO: No focal deficits. Alert and oriented x3. PSYCH: Normal mood and affect <JAZLYN Alves Last Filed: 03/03/24 17:18> Course Course Emergency Course: Patient updated on his workup and need for admission <MITRA Alves - Last Filed: 03/03/24 17:18> [employer]IVER/PA Physician Supervision This visit was performed by both a physician and an APC. I performed all aspects of the MDM as documented. <Yadira Diaz MD - Last Filed: 03/03/24 04:10> Consultations Consultation #1: Spoke with hospitalist about patient and workup who accepts admission <Isi Cuadra PA-C - Last Filed: 03/03/24 17:18> Date: 03/03/24 <Isi Cuadra PA-C - Last Filed: 03/03/24 17:18> Vital Signs Vital signs: Vital Signs Temperature 100.4 F H 03/02/24 21:59 Pulse Rate 76 03/02/24 21:59 Respiratory Rate 24 H 03/02/24 21:59 Blood Pressure 135/65 03/02/24 21:59 Pulse Oximetry 87 L 03/02/24 21:59 Oxygen Delivery Room Air 03/02/24 21:59 Temperature 97.1 F L 03/03/24 16:32 Pulse Rate 63 03/03/24 16:32 Respiratory Rate 20 03/03/24 16:32 Blood Pressure 124/52 L 03/03/24 16:32 Pulse Oximetry 95 03/03/24 16:32 Oxygen Delivery Nasal Cannula 03/03/24 16:00 Oxygen Flow Rate 2 03/03/24 16:00 <Isi Cuadra PA-C - Last Filed: 03/03/24 17:18> Vital Signs Temperature 100.4 F H 03/02/24 21:59 Pulse Rate 76 03/02/24 21:59 Respiratory Rate 24 H 03/02/24 21:59 Blood Pressure 135/65 03/02/24 21:59 Pulse Oximetry 87 L 03/02/24 21:59 Oxygen Delivery Room Air 03/02/24 21:59 Temperature 97.1 F L 03/03/24 16:32 Pulse Rate 63 03/03/24 16:32 Respiratory Rate 20 03/03/24 16:32 Blood Pressure 124/52 L 03/03/24 16:32 Pulse Oximetry 95 03/03/24 16:32 Oxygen Delivery Nasal Cannula 03/03/24 16:00 Oxygen Flow Rate 2 03/03/24 16:00 <Yadira Diaz MD - Last Filed: 03/03/24 04:10> MDM - SOB/Dyspnea MDM Narrative Medical decision making narrative: Patient presents to the ER for cold symptoms ongoing since yesterday. Febrile and hypoxic upon arrival. Placed on 2L NC. Cough productive of yellow sp utum. White blood cell count 3.6. Hemoglobin appears stable. Metabolic panel with evidence of patient's end-stage renal disease. Influenza, COVID, and RSV are negative. Chest x-ray shows mild interstitial edema. EKG with atrial fibrillation, rate controlled. No acute ST changes. His troponin was elevated, but flat. He endorses chest pain with coughing. CT chest obtained for further evaluation. This is also read as mild interstitial edema. I do believe he has pneumonia in his left lower lobe. Blood cultures drawn. Sputum culture sent. Patient started on IV antibiotics. To the end of his ED visit he did start to have some low blood pressures. He was lightly hydrated due to his history of end-stage renal disease. Will be placed in the IMU. Spoke with hospitalist about patient and workup who accepts admission <Isi Cuadra PA-C - Last Filed: 03/03/24 17:18> Differential Diagnosis Differential diagnosis: Likely congestive heart failure, community acquired pneumonia and other (ESRD) <Isi Cuadra PA-C - Last Filed: 03/03/24 17:18> Lab Data Attestation: I reviewed the patient's lab results. <Isi Cuadra PA-C - Last Filed: 03/03/24 17:18> Result diagrams: 03/02/24 22:29 03/02/24 22:29 <Isi Cuadra PA-C - Last Filed: 03/03/24 17:18> Labs: Lab Results 03/02/24 03/03/24 03/03/24 Range/Units 22:29 01:45 06:37 WBC 3.6 L (4.5-10.0) K/mm3 RBC 3.31 L (4.6-6.20) M/mm3 Hgb 10.2 L (14.0-18.0) g/dL Hct 32.7 L (42.0-52.0) % MCV 98.8 (80-100) fl MCH 30.8 (26-34) pg MCHC 31.2 L (32-36) g/dl RDW 15.6 H (11.5-14.5) % Plt Count 81 L (150-375) k/mm3 MPV 12.1 H (7.4-10.4) fl Immature Gran % (Auto) 0.3 (0-0.5) % Neut % (Auto) 78.4 H (45.5-73.1) % Lymph % (Auto) 7.7 L (18.3-44.2) % [place] % (Auto) 12.7 H (2.6-8.5) % Eos % (Auto) 0.3 (0-4.4) % Baso % (Auto) 0.6 (0.2-1.2) % Lymph # (Auto) 0.28 L (0.9-3.2) K/mm3 [place] # (Auto) 0.5 (0.1-0.6) K/mm3 Eos # (Auto) 0.0 (0-0.3) K/mm3 Baso # (Auto) 0.0 (0.0-0.1) K/mm3 Abs Immat Gran (auto) 0.01 (0.00-0.031) K/mm3 Absolute Neuts (auto) 2.8 (1.3-6.7) K/mm3 Absolute Nucleated RBC 0.000 (0.0-0.012) K/mm3 Nucleated RBC % 0.0 (0.0-0.2) % % Immature Plt Fraction 5.7 (0.9-11.2) % Sodium 135 L (137-145) mmol/L Potassium 4.0 (3.4-5.0) mmol/L Chloride 96 L (98-107) mmol/L Carbon Dioxide 31 H (22-30) mmol/L Anion Gap 8 (4-12) mmol/L BUN 28 H (9-20) mg/dL Creatinine 3.50 H (0.7-1.3) mg/dL Estim Creat Clear Calc Not Reportable Estimated GFR 18 L (59 - ) Glucose 164 H (65-110) mg/dL Lactic Acid 1.6 (0.7-2.0) mmol/L Calcium 7.9 L (8.4-10.2) mg/dL Total Bilirubin 0.8 (0.2-1.3) mg/dL AST 26 (17-59) U/L ALT 13 (6-50) U/L Alkaline Phosphatase 150 H (38-126) U/L Troponin I 0.042 H* 0.047 H* (0.000-0.034) ng/mL Total Protein 8.0 (6.3-8.2) g/dL Albumin 3.6 (3.5-5.1) g/dL Nasal MRSA (PCR) Detected A* (NOT DETECTE) Influenza A (RT-PCR) Negative (Negative) Influenza B (RT-PCR) Negative (Negative) RSV (RT-PCR) Negative (Negative) SARS-CoV-2 RNA (RT-PCR) Negative (Negative) <Isi Cuadra PA-C - Last Filed: 03/03/24 17:18> Lab Results 03/02/24 03/03/24 03/03/24 Range/Units 22:29 01:45 06:37 WBC 3.6 L (4.5-10.0) K/mm3 RBC 3.31 L (4.6-6.20) M/mm3 Hgb 10.2 L (14.0-18.0) g/dL Hct 32.7 L (42.0-52.0) % MCV 98.8 (80-100) fl MCH 30.8 (26-34) pg MCHC 31.2 L (32-36) g/dl RDW 15.6 H (11.5-14.5) % Plt Count 81 L (150-375) k/mm3 MPV 12.1 H (7.4-10.4) fl Immature Gran % (Auto) 0.3 (0-0.5) % Neut % (Auto) 78.4 H (45.5-73.1) % Lymph % (Auto) 7.7 L (18.3-44.2) % [place] % (Auto) 12.7 H (2.6-8.5) % Eos % (Auto) 0.3 (0-4.4) % Baso % (Auto) 0.6 (0.2-1.2) % Lymph # (Auto) 0.28 L (0.9-3.2) K/mm3 [place] # (Auto) 0.5 (0.1-0.6) K/mm3 Eos # (Auto) 0.0 (0-0.3) K/mm3 Baso # (Auto) 0.0 (0.0-0.1) K/mm3 Abs Immat Gran (auto) 0.01 (0.00-0.031) K/mm3 Absolute Neuts (auto) 2.8 (1.3-6.7) K/mm3 Absolute Nucleated RBC 0.000 (0.0-0.012) K/mm3 Nucleated RBC % 0.0 (0.0-0.2) % % Immature Plt Fraction 5.7 (0.9-11.2) % Sodium 135 L (137-145) mmol/L Potassium 4.0 (3.4-5.0) mmol/L Chloride 96 L (98-107) mmol/L Carbon Dioxide 31 H (22-30) mmol/L Anion Gap 8 (4-12) mmol/L BUN 28 H (9-20) mg/dL Creatinine 3.50 H (0.7-1.3) mg/dL Estim Creat Clear Calc Not Reportable Estimated GFR 18 L (59 - ) Glucose 164 H (65-110) mg/dL Lactic Acid 1.6 (0.7-2.0) mmol/L Calcium 7.9 L (8.4-10.2) mg/dL Total Bilirubin 0.8 (0.2-1.3) mg/dL AST 26 (17-59) U/L ALT 13 (6-50) U/L Alkaline Phosphatase 150 H (38-126) U/L Troponin I 0.042 H* 0.047 H* (0.000-0.034) ng/mL Total Protein 8.0 (6.3-8.2) g/dL Albumin 3.6 (3.5-5.1) g/dL Nasal MRSA (PCR) Detected A* (NOT DETECTE) Influenza A (RT-PCR) Negative (Negative) Influenza B (RT-PCR) Negative (Negative) RSV (RT-PCR) Negative (Negative) SARS-CoV-2 RNA (RT-PCR) Negative (Negative) <Yadira Diaz MD - Last Filed: 03/03/24 04:10> Imaging Data Radiologist's impression: ITS Impressions Chest X-Ray 03/02/24 22:39 IMPRESSION: Mild interstitial edema, similar to the prior examination. Possible small bilateral effusions. Chest CT 03/02/24 23:48 IMPRESSION: Mild interstitial edema. Mediastinal lymphadenopathy. <JAZLYN Alves Last Filed: 03/03/24 17:18> ECG Data EKG #1: ECG completion date: 03/02/24 <JAZLYN Alves Last Filed: 03/03/24 17:18> EKG Interpretation: normal rate and atrial fibrillation <JAZLYN Alves Last Filed: 03/03/24 17:18> Critical Care Time Critical Care Time Critical Care Time: Yes <JAZLYN Alves Last Filed: 03/03/24 17:18> Total Critical Care Time: 35 <JAZLYN Alves Last Filed: 03/03/24 17:18> Discharge Plan Discharge Clinical Impression: Acute hypoxemic respiratory failure Pneumonia Qualifiers: Pneumonia type: due to unspecified organism Laterality: left Lung location: lower lobe of lung Qualified Code(s): J18.9 - Pneumonia, unspecified organism <JAZLYN Alves Last Filed: 03/03/24 17:18> Patient Disposition: Still a Patient <JAZLYN Alves Last Filed: 03/03/24 17:18> Condition: Serious <JAZLYN Alves Last Filed: 03/03/24 17:18>
[2024-03-02] MEDS: ACETAMINOPHEN 500 MG TABLET 1000 MG PO (22:45)
[2024-03-02 22:46] VITALS: BP 138/62; PULSE 81; RESP 28; TEMP 37.9; O2SAT 97
[2024-03-02 22:53] LABS: Lactic Acid Reflex 1.6 mmol/L (0.7-2.0)
[2024-03-02 22:54] LABS: Alanine Aminotransferase 13 U/L (6-50); Albumin Level 3.6 g/dL (3.5-5.1); Alkaline Phosphatase 150 U/L (38-126); Anion Gap 8 mmol/L (4-12); Aspartate Amino Transferase 26 U/L (17-59); Bilirubin,Total 0.8 mg/dL (0.2-1.3); Blood Urea Nitrogen 28 mg/dL (9-20); Calcium 7.9 mg/dL (8.4-10.2); Carbon Dioxide 31 mmol/L (22-30); Chloride 96 mmol/L (98-107); Estimated Glomerular Filt Rate 18; Glucose 164 mg/dL (65-110); Sodium 135 mmol/L (137-145)
[2024-03-02 23:12] VITALS: BP 138/55; PULSE 80; RESP 20; O2SAT 97
[2024-03-02 23:12] LABS: Troponin I 0.042 ng/mL (0.000-0.034)
[2024-03-02 23:17] LABS: Influenza A QL RT-PCR Negative (Negative); Influenza B QL RT-PCR Negative (Negative); RSV RNA, RT-PCR Negative (Negative); SARS-CoV-2 RNA PCR Negative (Negative)
[2024-03-03] VITALS (23 sets, daily range): BP systolic 92–124; BP diastolic 40–52; PULSE 57–84; RESP 16–28; TEMP 36.2–37.3; O2SAT 95–100; BMI 38.4
--- NOTE | 2024-03-03 | ECHO_ITS ---
Patient Info Name: Kobi Salter Age: 58 years : 1965 Gender: Male Ht: 60 in Wt: 196 lbs BSA: 1.99 m2 HR: 58 bpm BP: 114 / 43 mmHg Heart Rhythm: Atrial Fibrillation Technical Quality: Fair Exam Date: 03/03/2024 12:59 PM Exam Location: Echo Lab Patient Status: Inpatient Admit Date: 03/03/2024 Staff Ordering Physician: Lana Tidwell APRN Window Tinter: Niya Monteiro RDCS Attending Provider: Lana Tidwell APRN Referring Physician: Diann VINSON; Exam Type: CA echo dop color flow w con Study Info Indications - chf Complete two-dimensional, color flow and Doppler transthoracic echocardiogram is performed with contrast to opacify the left ventricle and to improve the deliniation of the left ventricle endocardial borders. Contrast/Agitated Saline Contrast/Ag. Saline: Definity Amount: 2.00 ml Administered By: Niya Monteiro RDCS Existing IV Access: Yes IV Access Condition: patent with no signs of infiltration Summary 1. Definity contrast administered improved wall motion interpretation. 2. Left ventricular chamber dimension is normal. 3. Left ventricular systolic function is preserved, estimated at 50-55%. 4. The left ventricular diastolic function is abnormal. 5. E/e' 20 is elevated. 6. Right ventricular chamber dimension is severely enlarged. 7. Right ventricular systolic function is at least moderately reduced and with abnormal TAPSE 1.5 cm. 8. Left atrial chamber dimension is moderately enlarged. 9. Right atrial chamber dimension is moderately enlarged. 10. There is mild aortic valve sclerosis. 11. No pulmonary hypertension, estimated pulmonary arterial systolic pressure is 33 mmHg. 12. There is trivial pericardial effusion. Left Ventricle Left ventricular systolic function is preserved, estimated at 50-55%. Definity contrast administered improved wall motion interpretation. E/e' 20 is elevated. Left ventricular chamber dimension is normal. The left ventricular diastolic function is abnormal. Right Ventricle Right ventricular systolic function is at least moderately reduced and with abnormal TAPSE 1.5 cm. Right ventricular chamber dimension is severely enlarged. Left Atria Left atrial chamber dimension is moderately enlarged. Right Atria Right atrial chamber dimension is moderately enlarged. Aortic Valve The aortic valve is trileaflet. There is mild aortic valve sclerosis. There is no aortic valve stenosis. There is no aortic valve regurgitation. Pulmonic Valve There is no pulmonic regurgitation. Mitral Valve There is no mitral valve stenosis. There is no mitral valve regurgitation. Tricuspid Valve There is no tricuspid valve regurgitation. No pulmonary hypertension, estimated pulmonary arterial systolic pressure is 33 mmHg. Pericardium/Pleural There is trivial pericardial effusion. Inferior Vena Cava Normal inferior vena cava with >50% collapse upon inspiration consistent with normal right atrial pressure, 5 mmHg. Aorta The aortic root size at the sinus of Valsalva is normal. Left Ventricular Outflow Tract Name Value Normal LVOT 2D LVOT Diameter 2.05 cm LVOT Doppler LVOT Peak Gradient 2 mmHg LVOT Mean Gradient 1 mmHg LVOT VTI 14.09 cm LVOT VTI/AV VTI Ratio 0.55 LVOT Stroke Volume 46.36 ml LVOT CO 2.80 l/min LVOT CI 1.41 L/min/m2 Pulmonic Valve Name Value Normal RVOT Doppler RVOT Peak Gradient 1 mmHg PV Doppler PV Peak Gradient 2 mmHg Mitral Valve Name Value Normal MV Doppler MV Decel [place] 452.80 cm/s2 MV PHT 0 s MV Area (PHT) 3.02 cm2 4.00-5.00 MV Diastolic Function MV E Peak Velocity 113.74 cm/s MV A Peak Velocity 0.94 cm/s MV E/A 121.28 MV Decel Time 0 s MV Annular TDI MV E/e' (Septal) 28.34 <=8.00 MV E/e' (Lateral) 15.57 <=8.00 MV E/e' (Average) 21.96 Tricuspid Valve Name Value Normal TV Regurgitation Doppler TR Peak Velocity 265.49 cm/s TR Peak Gradient 28 mmHg Estimated PAP/RSVP RA Pressure 5 mmHg <=5 PA Systolic Pressure 33 mmHg <36 RV Systolic Pressure 33 mmHg <36 Aorta Name Value Normal Ascending Aorta Ao Root Diameter (MM) 3.60 cm Ao Root Diam Index (MM) 1.81 cm/m2 Aortic Valve Name Value Normal AV Doppler AV Peak Velocity 125.53 cm/s AV Peak Gradient 6 mmHg AV Mean Gradient 3 mmHg AV VTI 25.39 cm AV Area (Cont Eq VTI) 1.83 cm2 >=3.00 AV Area (Cont Eq Tong) 1.95 cm2 AV Regurgitation 2D LVOT Area 3.29 cm2 Ventricles Name Value Normal LV Dimensions 2D/MM IVS Diastolic Thickness (2D) 0.95 cm 0.60-1.00 LVID Diastole (2D) 4.50 cm 4.20-5.80 LVIW Diastolic Thickness (2D) 0.89 cm 0.60-1.00 LVID Systole (2D) 3.52 cm 2.50-4.00 LVOT Diameter 2.05 cm LV Mass (2D Cubed) 137.71 g 88.00-224.00 LV Mass Index (2D Cubed) 0.01 g/cm2 0.00-0.01 Relative Wall Thickness (2D) 0.40 LV Fractional Shortening/Ejection Fraction 2D/MM LV Fractional Shortening (2D) 22 % 25-43 LV EF (2D Teicholz) 44 % 52-72 LV Diastolic Volume (4C MOD) 103.80 ml LV EF (4C MOD) 55 % LV Diastolic Volume (2C MOD) 115.11 ml LV EF (2C MOD) 51 % LV Diastolic Volume (BP MOD) 109.21 ml 62.00-150.00 LV Diastolic Volume Index (BP MOD) 0.05 l/m2 0.03-0.07 LV Systolic Volume (BP MOD) 52.69 ml 21.00-61.00 LV Systolic Volume Index (BP MOD) 0.03 l/m2 0.01-0.03 LV EF (BP MOD) 52 % 52-72 LV Diastolic Length (4C) 9.26 cm LV Systolic Length (4C) 7.79 cm LV Stroke Volume (4C MOD) 56.76 ml Atria Name Value Normal LA Dimensions LA Dimension (MM) 5.66 cm 3.00-4.10 LA Volume (4C A-L) 118.06 ml LA Volume (BP A-L) 111.17 ml RA Dimensions RA Area (4C) 25.30 cm2 <=18.00 Report Signatures
[2024-03-03] MEDS: AZITHROMYCIN 500 MG/NS 250 ML 500 MG/250 ML BAG 250 MG IVPB (00:55)
--- NOTE | 2024-03-03 01:35 | ECG_ITS ---
Test Date: 2024-03-03 01:41:53 Measurements Intervals [place] Rate: 59 P: 0 LA: 0 QRS: -79 QRSD: 137 T: 114 QT: 512 QTc: 509 Interpretive Statements SINUS BRADYCARDIA WITH MARKED FIRST DEGREE AV BLOCK NON-CONDUCTED PREMATURE ATRIAL COMPLEXES LEFT BUNDLE BRANCH BLOCK BASELINE ARTIFACT- I, II, III, AVR, AVL, AVF, V1-V4 ABNORMAL ECG Compared to ECG 03/02/2024 22:04:54 HEART RATE HAS DECREASED Electronically Signed On 03-03-2024 06:18:34 CDT by Nasim Gee D.O.
[2024-03-03] MEDS: ONDANSETRON INJ 4 MG/2 ML VIAL IV PUSH (01:37)
[2024-03-03 02:34] LABS: Troponin I 0.047 ng/mL (0.000-0.034)
[2024-03-03] MEDS: SODIUM CHLORIDE 0.9% IV 500 ML 125 ML IV CONT (02:49)
--- NOTE | 2024-03-03 03:32 | ADMGEN ---
This patient, Kobi Salter, was admitted to IMU Room 205-02. Patient/family oriented to hospital policies and general routines including ID bracelet, bed and alarms, visiting hours, pain management, procedures, bathroom and other care routines, personal items, smoking policy, room service/diet, and visiting hours. Information on how to activate the Rapid Response Team has been discussed. Patient/Family are encouraged to report perceived risks to care and to ask questions if they do not understand what they are told or what they should do.
[2024-03-03] MEDS: CEFEPIME 1 GM/NS 50 ML 1 GM/50 ML BAG IVPB (04:15)
[2024-03-03] MEDS: VANCOMYCIN 1,250 MG/NS 250 ML 1,250 MG/250 ML BAG 166.67 MG IVPB (05:15)
[2024-03-03] MEDS: VANCOMYCIN 1,000 MG/NS 250 ML 1,000 MG/250 ML BAG 250 MG IVPB (06:36)
--- NOTE | 2024-03-03 09:00 | P.HP_ITS ---
H&P: HPI History of Present Illness Date/Time: 03/03/24 09:00 Chief Complaint: Shortness of breath Narrative: This is a 58-year-old male with a past medical history significant for end-stage renal disease on hemodialysis Saturday, anemia, systolic and diastolic congestive heart failure, coronary artery disease, hypertension, hyperlipidemia, and type 2 diabetes who presented to the emergency room from his custodial with complaints of shortness of breath. History is provided by the patient and supplemental chart review. Patient received hemodialysis yesterday as previously scheduled and then developed sudden shortness of breath, productive cough with clear to yellow sputum, and subjective fever and chills. He is unsure of the exact amount but but states they removed 1 L something at dialysis. Also reports some mild headache and nausea this morning. He did experienced 1 episode of loose stool yesterday. He denies dizziness, chest pain, abdominal pain, or constipation. On exam he is drowsy but does open his eyes to verbal stimuli and answers questions appropriately. He appears as though he does not feel well. He is wearing an event monitor that he says was ordered by his dressing room porter. In the ER labs were significant for white blood cell count 3.6, hemoglobin 10.2, sodium 135, potassium 4, BUN 28, creatinine 3.50, glucose 164, and troponin 0.042. Chest x-ray showed mild interstitial edema and small pleural effusions. CT chest shows mediastinal lymphadenopathy. He received 1 gram of Tylenol, Rocephin, and Azithromycin for possible pneumonia. Antibiotics were escalated to Cefepime given he lives in a custodial. MRSA of the nares was positive and therefore vancomycin was added. Blood and urine cultures were drawn and are pending. Nephrology was consulted for hemodialysis. He is admitted in this setting for further treatment and evaluation. Review of Systems Review of Systems: All systems reviewed & are unremarkable except as noted in HPI and below PMFSH Past Medical History Medical History Anemia of chronic disease Anxiety and depression Arthritis Clostridium difficile diarrhea Combined systolic and diastolic congestive heart failure Coronary artery disease History of multiple stents and 4 vessel bypass. Diabetic nephropathy Diabetic neuropathy Diabetic peripheral neuropathy End-stage renal disease on hemodialysis Hyperlipidemia MRSA infection Obstructive sleep apnea does not use a CPAP Paroxysmal atrial fibrillation Transient atrial fibrillation following bypass surgery. Type 2 diabetes mellitus Surgical History Surgical History History of amputation of toe Left 5th toe 2013 small toe on the right amputated History of cardiac catheterization History of cataract extraction with lens replacement History of coronary artery stent placement History of five vessel coronary artery bypass (2018) Done at [facility] History of left below knee amputation History of right below knee amputation Family History Family History Sibling Patient's sister is Diabetes mellitus Sister Acute myocardial infarction Three brothers and 2 sisters History of blood clots Sister Abdominal aortic aneurysm Sister Dementia Brother COPD (chronic obstructive pulmonary disease) Brother Father Acute myocardial infarction, Onset Age: 65 Mother History of blood clots Hypertension, Onset Age: 80 Social History Social History Social History: Surrogate medical decision maker: Melodie Roca (niece) or Alejandra Murray (sister). Code status: Do not resuscitate. Smoking packs per day: 0.25 Smoking cigarettes per day: 5.0 Smoking status: Former smoker Alcohol intake: former Drinks per week: 2 Alcohol use details: Social alcohol use. Substance use: former Substance use type: marijuana Last use: 2019 Do You Feel Safe in your Home?: Yes Lack of Transportation: No Lack of Food: Never True Current Housing: Decline to Answer Concerned About Future Housing: No Difficulty Paying Gas/Electric Bills: No Difficulty Paying for Meds: No Currently Unemployed: No Education: Decline to Answer Difficulty w/ Childcare or Family Care: No Additional living arrangements comments: [facility]. Additional occupation/education comments: Disabled. Spiritual care concerns: No Meds Home Medications and Allergies Home Medications Medication Instructions Recorded Confirmed Type ferrous sulfate 325 mg (65 mg 325 mg PO DAILY 06/01/20 03/03/24 History iron) tablet multivitamin 1 tablet PO DAILY 06/01/20 03/03/24 History nitroglycerin 0.4 mg sublingual 0.4 mg sublingual Q5-15M PRN Chest 06/01/20 03/03/24 History tablet Pain omega-3 fatty acids-fish oil 360 1 cap PO DAILY 06/01/20 03/03/24 History mg-1,200 mg capsule atorvastatin 40 mg tablet (Lipitor) 40 mg PO HS 12/23/20 03/03/24 History folic acid 1 mg tablet 1 mg PO DAILY 12/23/20 03/03/24 History gabapentin 100 mg tablet 200 mg PO HS 12/23/20 03/03/24 History sevelamer carbonate 800 mg tablet 800 mg PO TID 12/23/20 03/03/24 History tamsulosin 0.4 mg capsule (Flomax) 0.4 mg PO DAILY 12/23/20 03/03/24 History linagliptin 5 mg tablet (Tradjenta) 5 mg PO DAILY 01/13/23 03/03/24 History mirtazapine 15 mg tablet 15 mg PO HS 01/13/23 03/03/24 History sertraline 50 mg tablet 25 mg PO HS 01/13/23 03/03/24 History Lactobacillus acidophilus 100 mmu cells PO TID 09/17/23 03/03/24 History aspirin 81 mg tablet 81 mg PO DAILY 09/17/23 03/03/24 History meclizine 25 mg tablet 25 mg PO Q8H PRN Dizziness 09/17/23 03/03/24 History midodrine 10 mg tablet 10 mg PO BID 09/17/23 03/03/24 History omeprazole 20 mg capsule,delayed 20 mg PO DAILY 09/17/23 03/03/24 History release oxycodone 5 mg tablet 5 mg PO Q4H PRN Pain (Scale Score 09/17/23 03/03/24 History 7-10) diphenoxylate-atropine 2.5 2 tablet PO TID PRN Diarrhea 09/18/23 03/03/24 History mg-0.025 mg tablet (Lomotil) acetaminophen 325 mg tablet 650 mg PO Q6H PRN Pain (Scale 10/29/23 03/03/24 History (Tylenol) Score 1-3) methocarbamol 500 mg tablet 500 mg PO TID 10/29/23 03/03/24 History naloxone 4 mg/actuation nasal spray 1 spray intranasal Q3M PRN Opioid 10/29/23 03/03/24 History Overdose sennosides 8.6 mg-docusate sodium 1 tablet PO BID PRN Constipation 10/29/23 03/03/24 History 50 mg tablet (Senna Plus) tramadol 50 mg tablet 50 mg PO Q4H PRN Pain (Scale Score 01/13/24 03/03/24 History 4-6) guaifenesin 100 mg/5 mL oral syrup 600 mg PO Q8H PRN Cough 03/03/24 03/03/24 History lanolin alcohols-mineral 1 applic topical QPM 03/03/24 03/03/24 History oil-w.petrolatum-ceresin topical cream (Eucerin topical cream) menthol 0.44 %-zinc oxide 20.6 % 1 applic topical BID 03/03/24 03/03/24 History topical ointment (Calmoseptine) Allergies Allergy/AdvReac Type Severity Reaction Status Date / Time Penicillins Allergy Unknown Unknown Verified 02/20/24 10:05 bee venom protein (honey bee) Allergy Swelling Verified 02/20/24 10:05 Vital Signs Vital Signs - 24 hr 03/02/24 21:59 03/02/24 22:03 03/02/24 22:46 Temperature 100.4 F H 100.3 F H Pulse Rate 76 81 Respiratory Rate 24 H 28 H Blood Pressure 135/65 138/62 Pulse Oximetry 87 L 97 97 Oxygen Delivery Room Air Nasal Cannula Oxygen Flow Rate 2 03/02/24 23:12 03/02/24 23:12 03/03/24 02:28 Temperature Pulse Rate 80 80 60 Respiratory Rate 20 25 H Blood Pressure 138/55 L 92/45 L Pulse Oximetry 97 100 Oxygen Delivery Oxygen Flow Rate 03/03/24 03:16 03/03/24 03:42 03/03/24 04:00 Temperature 98.4 F 97.9 F Pulse Rate 57 L 61 60 Respiratory Rate 25 H 18 Blood Pressure 102/46 L 107/40 L Pulse Oximetry 100 96 Oxygen Delivery Oxygen Flow Rate 03/03/24 04:00 03/03/24 04:00 03/03/24 06:00 Temperature 97.9 F Pulse Rate 60 60 59 L Respiratory Rate 18 Blood Pressure 107/40 L Pulse Oximetry 96 Oxygen Delivery Oxygen Flow Rate 03/03/24 08:00 03/03/24 04:28 Temperature 98.2 F 97.9 F Pulse Rate 58 L 60 Respiratory Rate 16 18 Blood Pressure 114/43 L 107/40 L Pulse Oximetry 96 96 Oxygen Delivery Oxygen Flow Rate Exam Narrative: General: appears chronically ill and acutely unwell, appears stated age. HEENT: normocephalic, atraumatic. Mucous membranes moist. EOMI, PERRLA, bilateral sclera anicteric, no conjunctival injection. Neck supple without JVD, lymphadenopathy, or bruit. Respiratory: Lung sounds are coarse with rhonchi and expiratory wheeze bilaterally. On 2 L nasal cannula Cardiovascular: Regular rate and rhythm, normal S1-S2 upon auscultation. No murmurs, rubs, or clicks. PMI is nondisplaced, capillary refill less than 3 second. Telemetry is sinus rhythm. Abdomen: Soft, round, no pulsatile masses, nondistended and mildly tender. No rebound, no guarding. No CVA tenderness, no hepatosplenomegaly. Bowel sounds present to all four quadrants. No high pitch or tinkling sounds, resonant to percussion. Extremities: No cyanosis, clubbing, or edema present. Pulses are palpable. Active ROM. Bilateral BKA. Neuro: Drowsy and orientated x 4. PERRLA. Cranial nerves 2-12 intact without focal deficit. Skin: Warm, dry, and intact, without rash, erythema, or lesion. Lines: PIV, LISA graft with +bruit and +thrill Incisions: NA Psych: cooperative, normal speech, normal affect, no hallucinations, no dysarthria H&P: Results Labs Labs: Short CBC 03/02/24 Range/Units 22:29 WBC 3.6 L (4.5-10.0) K/mm3 Hgb 10.2 L (14.0-18.0) g/dL Hct 32.7 L (42.0-52.0) % Plt Count 81 L (150-375) k/mm3 BMP 03/02/24 22:29 Sodium 135 L Potassium 4.0 Chloride 96 L Carbon Dioxide 31 H BUN 28 H Creatinine 3.50 H Glucose 164 H Calcium 7.9 L Cardiac Enzymes 03/02/24 03/03/24 Range/Units 22:29 01:45 Troponin I 0.042 H* 0.047 H* (0.000-0.034) ng/mL Liver Function 03/02/24 Range/Units 22:29 Total Bilirubin 0.8 (0.2-1.3) mg/dL AST 26 (17-59) U/L ALT 13 (6-50) U/L Alkaline Phosphatase 150 H (38-126) U/L Albumin 3.6 (3.5-5.1) g/dL Assessment and Plan Assessment and plan (1) Acute hypoxemic respiratory failure: Code(s): J96.01 - Acute respiratory failure with hypoxia Status: Acute Assessment and Plan: Patient with acute shortness of breath, productive sputum, and subjective chills with new oxygen requirement of 2 L. he was found to be sating 87% on room air on arrival to the emergency room. He does have expiratory wheeze on exam * White count 3.6 * T-max 100.4? * Patient was started on cefepime and vancomycin given he lives in a long-term care facility and MRSA of the nares was positive. * Placed on isolation for MRSA. Mupirocin to nares. * Blood cultures and sputum culture pending * Incentive spirometry * Guaifenesin b.i.d. * Scheduled DuoNebs * Last hemodialysis was yesterday and approximately 1 L removed. He does not appear fluid overloaded. Nephrology consulted. * Echocardiogram was ordered Plan Feeding:renal diet Analgesia:tylenol Thromboembolic prophylaxis: heparin Glycemic control: ac/hs accu checks, hypoglycemia protocol, SSI low dose Bowel regimen: N/A at this time. Had loose stool yesterday Lines: PIV Antibiotics: Cefepime and vanco Disposition: Return to SNF Advance Care Plan I have confirmed that the patient's Advanced Care Plan is present, code status is documented, or surrogate decision maker is listed in patient medical record.: Yes Medication Reconciliation I have utilized all available resources to obtain, update and review the patients current medications (includes all prescriptions, OTC, herbals, cannabis, and nutritional supplements).: Yes Quality VTE Prophylaxis VTE prophylaxis: pharmacologic ordered Hospitalist [facility] Advance Care Plan I have confirmed that the patient's Advanced Care Plan is present, code status is documented, or surrogate decision maker is listed in patient medical record.: Yes Medication Reconciliation I have utilized all available resources to obtain, update and review the patients current medications (includes all prescriptions, OTC, herbals, cannabis, and nutritional supplements).: Yes
[2024-03-03] MEDS: FERROUS SULFATE 325 MG TABLET DR PO (10:07)
[2024-03-03] MEDS: FOLIC ACID 1 MG TABLET PO (10:07)
[2024-03-03] MEDS: MULTIVITAMINS THERAPEUTIC TAB (*BKC) 1 TABLET PO (10:07)
[2024-03-03] MEDS: SITagliptin PHOSPHATE 100 MG TABLET PO (10:07)
[2024-03-03] MEDS: TAMSULOSIN HCL 0.4 MG CAPSULE PO (10:07)
[2024-03-03] MEDS: SEVELAMER CARBONATE 800 MG TABLET PO ×3 (10:07→17:08)
[2024-03-03] MEDS: OMEGA 3 POLYUNSAT FATTY ACIDS 1 GM CAP PO (10:07)
[2024-03-03] MEDS: methocarbamoL 500 MG TABLET PO ×3 (10:08→17:08)
[2024-03-03] MEDS: HEPARIN SODIUM 5,000 UNITS/ML VIAL 5000 UNITS SUB-Q ×2 (10:08→20:26)
[2024-03-03 10:50] LABS: MRSA (PCR) DETECTED (NOT DETECTE)
[2024-03-03 11:23] LABS: Glucose Point of Care 99 mg/dl (65-105)
--- NOTE | 2024-03-03 11:45 | P.CONNP_ITS ---
Assessment and Plan Assessment and plan (1) ESRD (end stage renal disease): Code(s): N18.6 - End stage renal disease Status: Chronic Assessment and Plan: * plan HD tomorrow * continue M/W/F schedule while hospitalized * follow electrolytes, volume status, and clearance (2) Acute hypoxemic respiratory failure: Code(s): J96.01 - Acute respiratory failure with hypoxia Status: Acute Assessment and Plan: * hypoxia noted on admission in association with productive cough * wheezes and rhonchi on exam in ER * also noted to have low grade fever (100.4?) * volume status okay * concern for possible pneumonia * initiated on current therapy: * supplemental oxygen * nebulizer treatments * incentive spirometry * antitussive medications * wean supplemental oxygen as tolerated (3) Pneumonia: Qualifiers: Laterality: left Lung location: lower lobe of lung Pneumonia type: due to unspecified organism Qualified Code(s): J18.9 - Pneumonia, unspecified organism Code(s): J18.9 - Pneumonia, unspecified organism Status: Acute Assessment and Plan: * suspected etiology of #2 * noted symptoms of shortness of breath, productive cough, and subjective fevers * resident of nursing facility and recent hospitalization -- hospital/facility acquired infection/pneumonia(?) * follow culture data * on antibiotics * follow clinical status (4) Anemia: Code(s): D64.9 - Anemia, unspecified Status: Chronic Assessment and Plan: * due to ESRD and worsened by #3/acute illness * Epogen with HD * follow trend of H/H (5) Diabetes mellitus with multiple complications: Code(s): E11.8 - Type 2 diabetes mellitus with unspecified complications Status: Chronic Assessment and Plan: * follow Accu-Cheks * glycemic control per hospitalists I will continue to follow patient with you while he remains hospitalized and make further recommendations as deemed necessary. Thank you for allowing me to participate in care this patient. History of Present Illness Reason for Consult Consult date: 03/03/24 Reason for consult: end stage renal disease Chief Complaint Chief complaint: ARF wth Hypoxia Pneumonia History of Present Illness Narrative: The patient is a 58-year-old male with a past medical history as outlined below who presented to [facility] Room via EMS from his nursing facility for further evaluation shortness of breath. The patient apparently had his regularly scheduled dialysis treatment yesterday without any issues or problem. From review of those records at his dialysis center, they removed approximately 1.2 L of fluid in got him down to his dry weight. He returned back to his nursing facility after the dialysis treatment and appeared to be in stable condition. However, later that evening, he developed acute onset of shortness of breath in association with a productive cough with clear to yellowish sputum. He also apparently had subjective fevers and chills as well. No apparent chest pain, abdominal pain, nausea, vomiting, or diarrhea. Given these constellation of symptoms, he presented to the ER for further assessment. Workup and evaluation emergency room demonstrated the patient to be hemodynamically stable but with a low grade temperature as well as hypoxia and he was somewhat drowsy/lethargic although he was able to respond to questions appropriately when asked. Routine blood test demonstrated a CBC with a mildly depressed white blood cell count and associated thrombocytopenia but a stable hemoglobin and chemistry that was consistent with his known history of end- stage renal disease without any critical electrolyte abnormalities. His initial troponin was mildly elevated but thought to be secondary to his ESRD status. His chest x-ray showed mild interstitial edema and small pleural effusions and given the sudden onset of his shortness of breath, a CTA of his chest was done which demonstrated mediastinal lymphadenopathy but no evidence of a pulmonary embolism. There was some concern given his symptoms that he may have early pneumonia as well despite his negative imaging studies. After appropriate cultures were obtained, he was started on antibiotics and was subsequent admitted to the hospital for further evaluation therapy. Since his admission, he has been requiring supplemental oxygen for on and off hypoxia and still feels appear somewhat sleepy/ lethargic but is able to answer questions appropriately with adequate stimulation. Renal consultation was requested due to his end-stage renal disease. The patient normally dialyzes on a Saturday, Saturday, Saturday dialysis schedule at [facility] under the care of Dr. Jimmie Almodovar As mentioned above, his last dialysis treatment was yesterday, 03/02/24. Surprisingly, despite adequate fluid removal to get him down to his dry weight, his chest x-ray and CT do demonstrate some evidence of fluid retention in his lungs. He is due for dialysis tomorrow. Currently, at the time my visit, he is not in any acute distress but admits to generalized fatigue.. Review of Systems Review of Systems: As per HPI. PMFSH Past Medical History Medical History Anemia of chronic disease Anxiety and depression Arthritis Clostridium difficile diarrhea Combined systolic and diastolic congestive heart failure Coronary artery disease History of multiple stents and 4 vessel bypass. Diabetic nephropathy Diabetic neuropathy Diabetic peripheral neuropathy End-stage renal disease on hemodialysis Hyperlipidemia MRSA infection Obstructive sleep apnea does not use a CPAP Paroxysmal atrial fibrillation Transient atrial fibrillation following bypass surgery. Type 2 diabetes mellitus Surgical History Surgical History History of amputation of toe Left 5th toe 2013 small toe on the right amputated History of cardiac catheterization History of cataract extraction with lens replacement History of coronary artery stent placement History of five vessel coronary artery bypass (2018) Done at [facility] History of left below knee amputation History of right below knee amputation Family History Family History Sibling Patient's sister is Diabetes mellitus Sister Acute myocardial infarction Three brothers and 2 sisters History of blood clots Sister Abdominal aortic aneurysm Sister Dementia Brother COPD (chronic obstructive pulmonary disease) Brother Father Acute myocardial infarction, Onset Age: 65 Mother History of blood clots Hypertension, Onset Age: 80 Social History Social History Social History: Surrogate medical decision maker: Melodie Roca (niece) or Alejandra Murray (sister). Code status: Do not resuscitate. Smoking packs per day: 0.25 Smoking cigarettes per day: 5.0 Smoking status: Former smoker Alcohol intake: former Drinks per week: 2 Alcohol use details: Social alcohol use. Substance use: former Substance use type: marijuana Last use: 2018 Do You Feel Safe in your Home?: Yes Lack of Transportation: No Lack of Food: Never True Current Housing: Decline to Answer Concerned About Future Housing: No Difficulty Paying Gas/Electric Bills: No Difficulty Paying for Meds: No Currently Unemployed: No Education: Decline to Answer Difficulty w/ Childcare or Family Care: No Additional living arrangements comments: [facility]. Additional occupation/education comments: Disabled. Spiritual care concerns: No Meds Home Medications and Allergies Home Medications Medication Instructions Recorded Confirmed Type ferrous sulfate 325 mg (65 mg 325 mg PO DAILY 06/01/20 03/03/24 History iron) tablet multivitamin 1 tablet PO DAILY 06/01/20 03/03/24 History nitroglycerin 0.4 mg sublingual 0.4 mg sublingual Q5-15M PRN Chest 06/01/20 03/03/24 History tablet Pain omega-3 fatty acids-fish oil 360 1 cap PO DAILY 06/01/20 03/03/24 History mg-1,200 mg capsule atorvastatin 40 mg tablet (Lipitor) 40 mg PO HS 12/23/20 03/03/24 History folic acid 1 mg tablet 1 mg PO DAILY 12/23/20 03/03/24 History gabapentin 100 mg tablet 200 mg PO HS 12/23/20 03/03/24 History sevelamer carbonate 800 mg tablet 800 mg PO TID 12/23/20 03/03/24 History tamsulosin 0.4 mg capsule (Flomax) 0.4 mg PO DAILY 12/23/20 03/03/24 History linagliptin 5 mg tablet (Tradjenta) 5 mg PO DAILY 01/13/23 03/03/24 History mirtazapine 15 mg tablet 15 mg PO HS 01/13/23 03/03/24 History sertraline 50 mg tablet 25 mg PO HS 01/13/23 03/03/24 History Lactobacillus acidophilus 100 mmu cells PO TID 09/17/23 03/03/24 History aspirin 81 mg tablet 81 mg PO DAILY 09/17/23 03/03/24 History meclizine 25 mg tablet 25 mg PO Q8H PRN Dizziness 09/17/23 03/03/24 History midodrine 10 mg tablet 10 mg PO BID 09/17/23 03/03/24 History omeprazole 20 mg capsule,delayed 20 mg PO DAILY 09/17/23 03/03/24 History release acetaminophen 325 mg tablet 650 mg PO Q6H PRN Pain (Scale 10/29/23 03/03/24 History (Tylenol) Score 1-3) methocarbamol 500 mg tablet 500 mg PO TID 10/29/23 03/03/24 History naloxone 4 mg/actuation nasal spray 1 spray intranasal Q3M PRN Opioid 10/29/23 03/03/24 History Overdose sennosides 8.6 mg-docusate sodium 1 tablet PO BID PRN Constipation 10/29/23 03/03/24 History 50 mg tablet (Senna Plus) guaifenesin 100 mg/5 mL oral syrup 600 mg PO Q8H PRN Cough 03/03/24 03/03/24 History lanolin alcohols-mineral 1 applic topical QPM 03/03/24 03/03/24 History oil-w.petrolatum-ceresin topical cream (Eucerin topical cream) menthol 0.44 %-zinc oxide 20.6 % 1 applic topical BID 03/03/24 03/03/24 History topical ointment (Calmoseptine) cefuroxime axetil 250 mg tablet 250 mg PO DAILY@1700 #4 tabs 03/06/24 Rx diphenoxylate-atropine 2.5 2 tablet PO TID PRN Diarrhea #15 03/06/24 Rx mg-0.025 mg tablet (Lomotil) tabs oxycodone 5 mg tablet 5 mg PO Q4H PRN Pain (Scale Score 03/06/24 Rx 7-10) #15 tabs tramadol 50 mg tablet 50 mg PO Q4H PRN Pain (Scale Score 03/06/24 Rx 4-6) #15 tabs Allergies Allergy/AdvReac Type Severity Reaction Status Date / Time Penicillins Allergy Unknown Unknown Verified 03/06/24 11:13 bee venom protein (honey bee) Allergy Swelling Verified 02/20/24 10:05 Vital Signs Vital Signs Temp Pulse Resp BP Pulse Ox O2 Del Method O2 Flow Rate 03/03/24 11:43 99.1 F 60 28 H 117/44 L 99 03/03/24 08:00 98.2 F 58 L 16 114/43 L 96 03/03/24 08:00 98 Nasal Cannula 2 03/03/24 08:00 76 03/03/24 08:00 98.2 F 58 L 16 114/43 L 96 03/03/24 06:00 59 L 03/03/24 04:00 60 03/03/24 04:00 97.9 F 60 18 107/40 L 96 03/03/24 04:00 97.9 F 60 18 107/40 L 96 03/03/24 03:42 61 03/03/24 03:16 98.4 F 57 L 25 H 102/46 L 100 03/03/24 02:28 60 25 H 92/45 L 100 03/02/24 23:12 80 20 138/55 L 97 03/02/24 23:12 80 03/02/24 22:46 100.3 F H 81 28 H 138/62 97 03/02/24 22:03 97 Nasal Cannula 2 03/02/24 21:59 100.4 F H 76 24 H 135/65 87 L Room Air Results Lab Results 03/06/24 04:15 03/06/24 04:15 Lab results: Most recent lab results Calcium 7.9 mg/dL (8.4-10.2) L 03/02/24 22:29
[2024-03-03] MEDS: PERFLUTREN LIPID MICROSPHERES 1.5 ML VIAL DILUTED TO 10 ML TOTAL VOLUME IV PUSH (13:24)
[2024-03-03] MEDS: IPRATROPIUM 0.5 MG/ALBUTEROL SULFATE 2.5 MG AMPUL.NEB 3 ML INHALATION ×2 (13:29→20:40)
[2024-03-03] MEDS: MIDODRINE HCL 10 MG TABLET PO (13:31)
--- NOTE | 2024-03-03 15:09 | IVDEFINITY ---
Prior to administration of IV Definity the patient was educated on the risks and benefits of the imaging enhancing agent including potential adverse side effects. The patient verbalized understanding. Allergies were verified. No exclusion criteria were identified and at least one of the following inclusion criteria were met: 1) physician request, 2) patient technically difficult to image (per the [place] [employer]ocardi[employer] guidelines of two or more segments not discernable within the apical view), or 3) questionable left ventricular function. ?
[2024-03-03 16:31] LABS: Glucose Point of Care 96 mg/dl (65-105)
[2024-03-03 20:11] LABS: Glucose Point of Care 125 mg/dl (65-105)
[2024-03-03] MEDS: GABAPENTIN 100 MG CAPSULE 200 MG PO (20:25)
[2024-03-03] MEDS: MIRTAZAPINE 15 MG TABLET PO (20:26)
[2024-03-03] MEDS: MUPIROCIN 2% OINT 22 GM TUBE 1 APPLIC EACH NARE (20:26)
[2024-03-03] MEDS: SERTRALINE HCL 25 MG TABLET PO (20:26)
[2024-03-03] MEDS: guaiFENesin 12 HR 600 MG TABCR PO (20:26)
[2024-03-03] MEDS: ATORVASTATIN 40 MG TABLET PO (20:26)
--- NOTE | 2024-03-03 21:03 | PC.NURSE ---
2100: [facility] called for an updated ETA. Dispatcher reports they have had an increase in 911 calls and new ETA is 2200. fashion artist and family updated.
[2024-03-04] VITALS (43 sets, daily range): BP systolic 92–129; BP diastolic 39–92; PULSE 43–80; RESP 18–22; TEMP 35.9–37.7; O2SAT 95–100; BMI 38.4
[2024-03-04] MEDS: IPRATROPIUM 0.5 MG/ALBUTEROL SULFATE 2.5 MG AMPUL.NEB 3 ML INHALATION ×4 (02:25→20:25)
[2024-03-04 04:43] LABS: Basophils Percent Auto 0.6 % (0.2-1.2); Eosinophils Absolute Auto 0.1 K/mm3 (0-0.3); Eosinophils Percent Auto 2.9 % (0-4.4); Hematocrit 32.4 % (42.0-52.0); Hemoglobin 9.9 g/dL (14.0-18.0); Immature Granulocyte Absolute 0.01 K/mm3 (0.00-0.031); Immature Granulocyte Percent A 0.3 % (0-0.5); Immature Platelet Fraction Pct 8.5 % (0.9-11.2); Lymphocytes Percent Auto 15.9 % (18.3-44.2); Mean Corpuscular HGB Conc 30.6 g/dl (32-36); Mean Corpuscular Hemoglobin 30.7 pg (26-34); Mean Corpuscular Volume 100.6 fl (80-100); Mean Platelet Volume 12.6 fl (7.4-10.4); Monocytes Absolute Auto 0.5 K/mm3 (0.1-0.6); Monocytes Percent Auto 16.2 % (2.6-8.5); Neutrophils Percent Auto 64.1 % (45.5-73.1); Platelet Count Result 74 k/mm3 (150-375); Red Blood Count 3.22 M/mm3 (4.6-6.20); Red Cell Distribution Width 15.3 % (11.5-14.5); White Blood Count 3.1 K/mm3 (4.5-10.0)
[2024-03-04 04:58] LABS: Alanine Aminotransferase 11 U/L (6-50); Albumin Level 3.2 g/dL (3.5-5.1); Alkaline Phosphatase 125 U/L (38-126); Anion Gap 7 mmol/L (4-12); Aspartate Amino Transferase 24 U/L (17-59); Bilirubin,Total 0.8 mg/dL (0.2-1.3); Blood Urea Nitrogen 41 mg/dL (9-20); Calcium 7.7 mg/dL (8.4-10.2); Carbon Dioxide 30 mmol/L (22-30); Chloride 100 mmol/L (98-107); Estimated CRCL calculation 13 ml/min; Estimated Glomerular Filt Rate 11; Glucose 112 mg/dL (65-110); Magnesium 1.9 mg/dL (1.6-2.3); Phosphorus 5.6 mg/dL (2.5-4.5); Sodium 137 mmol/L (137-145)
[2024-03-04 05:09] LABS: Procalcitonin 1.2 ng/mL
[2024-03-04 05:23] LABS: Hepatitis B Surface Antigen Negative (Negative)
[2024-03-04 05:40] LABS: Hepatitis B Surface Anti Res Negative
[2024-03-04] MEDS: CEFEPIME 1 GM/NS 50 ML 1 GM/50 ML BAG IVPB (06:13)
[2024-03-04 07:33] LABS: Vancomycin Random 19.9 ug/mL (10-20)
[2024-03-04 07:55] LABS: Glucose Point of Care 109 mg/dl (65-105)
[2024-03-04] MEDS: SITagliptin PHOSPHATE 100 MG TABLET PO (07:58)
[2024-03-04] MEDS: methocarbamoL 500 MG TABLET PO ×3 (07:58→18:38)
[2024-03-04] MEDS: TAMSULOSIN HCL 0.4 MG CAPSULE PO (07:58)
[2024-03-04] MEDS: MIDODRINE HCL 10 MG TABLET PO ×2 (07:58→14:27)
[2024-03-04] MEDS: MUPIROCIN 2% OINT 22 GM TUBE 1 APPLIC EACH NARE ×2 (07:58→20:09)
[2024-03-04] MEDS: FERROUS SULFATE 325 MG TABLET DR PO (07:58)
[2024-03-04] MEDS: SEVELAMER CARBONATE 800 MG TABLET PO ×3 (07:58→18:38)
[2024-03-04] MEDS: guaiFENesin 12 HR 600 MG TABCR PO ×2 (07:58→20:09)
[2024-03-04] MEDS: ASPIRIN 81 MG CHEWABLE TABLET PO (07:58)
[2024-03-04] MEDS: MULTIVITAMINS THERAPEUTIC TAB (*BKC) 1 TABLET PO (08:01)
[2024-03-04] MEDS: OMEGA 3 POLYUNSAT FATTY ACIDS 1 GM CAP PO (08:02)
--- NOTE | 2024-03-04 10:30 | PM.IMPN ---
Progress Note: A&P Assessment and Plan (1) Acute hypoxemic respiratory failure: Code(s): J96.01 - Acute respiratory failure with hypoxia Status: Acute Assessment and Plan: Patient with acute shortness of breath, productive sputum, and subjective chills with new oxygen requirement of 2 L. he was found to be sating 87% on room air on arrival to the emergency room. He does have expiratory wheeze on exam White count 3.6 T-max 100.4? Patient was started on cefepime and vancomycin given he lives in a long-term care facility and MRSA of the nares was positive. Placed on isolation for MRSA. Mupirocin to nares. Blood cultures and sputum culture pending Incentive spirometry Guaifenesin b.i.d. Scheduled DuoNebs Last hemodialysis was yesterday and approximately 1 L removed. He does not appear fluid overloaded. Nephrology consulted. Echocardiogram was ordered 03/04 noted o2 on his forehead- sats ok- ok to stop oxygen and monitor saturation - IS - contineu antibiotics Plan Feeding:renal diet Analgesia:tylenol Thromboembolic prophylaxis: heparin Glycemic control: ac/hs accu checks, hypoglycemia protocol, SSI low dose Bowel regimen: N/A at this time. Had loose stool yesterday Lines: PIV Antibiotics: Cefepime and vanco Disposition: Return to SNF Time Spent With Patient Time with patient: 25 - 35 minutes Subjective Date/time seen: 03/04/24 10:30 Interval history: retrieved form h/p: This is a 58-year-old male with a past medical history significant for end-stage renal disease on hemodialysis Saturday, anemia, systolic and diastolic congestive heart failure, coronary artery disease, hypertension, hyperlipidemia, and type 2 diabetes who presented to the emergency room from his shelter with complaints of shortness of breath. History is provided by the patient and supplemental chart review. Patient received hemodialysis yesterday as previously scheduled and then developed sudden shortness of breath, productive cough with clear to yellow sputum, and subjective fever and chills. He is unsure of the exact amount but but states they removed 1 L something at dialysis. Also reports some mild headache and nausea this morning. He did experienced 1 episode of loose stool yesterday. He denies dizziness, chest pain, abdominal pain, or constipation. On exam he is drowsy but does open his eyes to verbal stimuli and answers questions appropriately. He appears as though he does not feel well. 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 In the ER labs were significant for white blood cell count 3.6, hemoglobin 10.2, sodium 135, potassium 4, BUN 28, creatinine 3.50, glucose 164, and troponin 0.042. Chest x-ray showed mild interstitial edema and small pleural effusions. CT chest shows mediastinal lymphadenopathy. He received 1 gram of Tylenol, Rocephin, and Azithromycin for possible pneumonia. Antibiotics were escalated to Cefepime given he lives in a shelter. MRSA of the nares was positive and therefore vancomycin was added. Blood and urine cultures were drawn and are pending. Nephrology was consulted for hemodialysis. He is admitted in this setting for further treatment and evaluation. 03/04- pt is seen and examined today around 1400 (pt was getting dialysis earlier). pt is alert, oriented, pleasant. reports no issues today. will move out if IMU today. Review of Systems Review of Systems: All systems reviewed & are unremarkable except as noted in HPI and below Exam Narrative: General: appears stated age, pleasant HEENT: normocephalic, atraumatic. Mucous membranes moist. EOMI, PERRLA, bilateral sclera anicteric, no conjunctival injection. Neck supple without JVD, lymphadenopathy, or bruit. Respiratory: Lung sounds are coarse with rhonchi and expiratory wheeze bilaterally. On 2 L nasal cannula Cardiovascular: Regular rate and rhythm, normal S1-S2 upon auscultation. No murmurs, rubs, or clicks. PMI is nondisplaced, capillary refill less than 3 second. Telemetry is sinus rhythm. Abdomen: Soft, round, no pulsatile masses, nondistended and mildly tender. No rebound, no guarding. No CVA tenderness, no hepatosplenomegaly. Bowel sounds present to all four quadrants. No high pitch or tinkling sounds, resonant to percussion. Extremities: No cyanosis, clubbing, or edema present. Pulses are palpable. Active ROM. Bilateral BKA. Neuro: Drowsy and orientated x 4. PERRLA. Cranial nerves 2-12 intact without focal deficit. Skin: Warm, dry, and intact, without rash, erythema, or lesion. Lines: PIV, LISA graft with +bruit and +thrill Incisions: NA Psych: cooperative, normal speech, normal affect, no hallucinations, no dysarthria Const: General: comfortable Objective Data Vital Signs Vital Signs: Vital Signs - 24 hr 03/03/24 11:43 03/03/24 12:00 03/03/24 12:00 Temperature 99.1 F Pulse Rate 60 60 60 Respiratory Rate 28 H 28 H Blood Pressure 117/44 L Pulse Oximetry 99 99 Oxygen Delivery Nasal Cannula Oxygen Flow Rate 2 03/03/24 13:34 03/03/24 13:37 03/03/24 13:38 Temperature Pulse Rate 61 60 Respiratory Rate 18 18 Blood Pressure Pulse Oximetry 97 Oxygen Delivery Nasal Cannula Oxygen Flow Rate 1 03/03/24 12:00 03/03/24 14:00 03/03/24 16:00 Temperature 99.1 F Pulse Rate 60 64 84 Respiratory Rate 28 H Blood Pressure 117/44 L Pulse Oximetry 99 Oxygen Delivery Oxygen Flow Rate 03/03/24 16:00 03/03/24 16:32 03/03/24 18:00 Temperature 97.1 F L Pulse Rate 84 63 64 Respiratory Rate 18 20 Blood Pressure 124/52 L Pulse Oximetry 97 95 Oxygen Delivery Nasal Cannula Oxygen Flow Rate 2 03/03/24 20:07 03/03/24 20:00 03/03/24 20:00 Temperature 98.1 F Pulse Rate 66 65 Respiratory Rate 20 Blood Pressure 124/51 L Pulse Oximetry 98 98 Oxygen Delivery Nasal Cannula Oxygen Flow Rate 2 03/03/24 21:55 03/04/24 00:00 03/04/24 00:00 Temperature Pulse Rate 67 63 Respiratory Rate Blood Pressure Pulse Oximetry 99 Oxygen Delivery Nasal Cannula Oxygen Flow Rate 1 03/04/24 00:21 03/03/24 20:40 03/03/24 20:42 Temperature 98.1 F Pulse Rate 65 60 Respiratory Rate 20 18 Blood Pressure 110/41 L Pulse Oximetry 99 97 Oxygen Delivery Nasal Cannula Oxygen Flow Rate 1 03/04/24 02:28 03/03/24 20:52 03/04/24 04:28 Temperature 98.1 F Pulse Rate 61 63 65 Respiratory Rate 18 18 18 Blood Pressure 118/52 L Pulse Oximetry 99 Oxygen Delivery Oxygen Flow Rate 03/04/24 02:00 03/04/24 04:00 03/04/24 04:00 Temperature Pulse Rate 62 63 Respiratory Rate Blood Pressure Pulse Oximetry 99 Oxygen Delivery Nasal Cannula Oxygen Flow Rate 1 03/04/24 06:00 03/04/24 02:38 03/04/24 07:47 Temperature Pulse Rate 59 L 63 Respiratory Rate 18 Blood Pressure Pulse Oximetry 95 Oxygen Delivery Nasal Cannula Oxygen Flow Rate 2 03/04/24 07:47 03/04/24 07:56 03/04/24 07:54 Temperature 97.1 F L Pulse Rate 64 63 64 Respiratory Rate 20 20 22 H Blood Pressure 117/43 L Pulse Oximetry 95 Oxygen Delivery Oxygen Flow Rate 03/04/24 08:00 03/04/24 08:00 03/04/24 08:36 Temperature 98.8 F Pulse Rate 63 76 Respiratory Rate 20 Blood Pressure 103/56 L Pulse Oximetry 96 95 Oxygen Delivery Nasal Cannula Oxygen Flow Rate 1 03/04/24 08:40 03/04/24 08:54 03/04/24 09:00 Temperature Pulse Rate 61 80 Respiratory Rate Blood Pressure 104/39 L 120/92 H Pulse Oximetry Oxygen Delivery Oxygen Flow Rate 2 03/04/24 09:15 03/04/24 09:30 03/04/24 09:45 Temperature Pulse Rate 49 L 43 L 58 L Respiratory Rate Blood Pressure 105/53 L 100/53 L 113/53 L Pulse Oximetry Oxygen Delivery Oxygen Flow Rate 03/04/24 10:00 Temperature Pulse Rate 53 L Respiratory Rate Blood Pressure 96/51 L Pulse Oximetry Oxygen Delivery Oxygen Flow Rate Intake/Output Intake/Output: Intake & Output 03/01/24 03/02/24 03/03/24 03/04/24 23:59 23:59 23:59 23:59 Intake Total 1094.2 0 Balance 1094.2 0 Meds/Results Medications: Active Medications Generic Name Dose Route Start Last Admin Trade Name Freq PRN Reason Stop Dose Admin Acetaminophen 650 mg 03/03/24 03:47 Acetaminophen 325 Mg Tablet PO Q6H PRN Mild Pain (1-3) or Fever Albuterol/Ipratropium 3 ml 03/03/24 14:00 03/04/24 07:46 Ipratropium 0.5 Mg/Albuterol Sulfate 2.5 Mg Ampul.Neb 3 Ml INHALATION 3 ml Q6HRT [facility] Administration Aspirin 81 mg 03/04/24 08:00 Aspirin 81 Mg Chewable Tablet PO DAILY@0800 [facility] Atorvastatin Calcium 40 mg 03/03/24 21:00 03/03/24 20:26 Atorvastatin 40 Mg Tablet PO 40 mg HS [facility] Administration Dextrose 12.5 gm 03/03/24 08:59 Dextrose 50% 25 Gm/50 Ml Syringe IV PUSH PRN PRN Hypoglycemia Protocol Dextrose 12.5 gm 03/03/24 13:39 Dextrose 50% 25 Gm/50 Ml Syringe IV PUSH PRN PRN Hypoglycemia Protocol Epoetin Bradford-epbx 10,000 units 03/04/24 20:00 Epoetin Bradford-Epbx 10,000 Units/Ml Vial IV PUSH 03/04/24 20:01 ONCE ONE Ferrous Sulfate 325 mg 03/03/24 09:05 03/03/24 10:07 Ferrous Sulfate [address] PO 325 mg DAILY [facility] Administration Fish Oil 1 gm 03/03/24 09:00 03/04/24 08:02 [place] 3 Polyunsat Fatty Acids 1 Gm Cap PO 1 gm DAILY [facility] Administration Folic Acid 1 mg 03/03/24 09:00 03/03/24 10:07 Folic Acid 1 Mg Tablet PO 1 mg DAILY [facility] Administration Gabapentin 200 mg 03/03/24 21:00 03/03/24 20:25 Gabapentin 100 Mg Capsule PO 200 mg HS [facility] Administration Glucagon 1 mg 03/03/24 08:59 Glucagon For Inj 1 Mg Vial IM PRN PRN Hypoglycemia Protocol Glucagon 1 mg 03/03/24 13:39 Glucagon For Inj 1 Mg Vial IM PRN PRN Hypoglycemia Protocol Glucose 15 gm 03/03/24 08:59 Glucose Oral Gel 15 Gm Of Glucse In 37.5 Gm Tube PO PRN PRN Hypoglycemia Protocol Glucose 15 gm 03/03/24 13:39 Glucose Oral Gel 15 Gm Of Glucse In 37.5 Gm Tube PO PRN PRN Hypoglycemia Protocol Guaifenesin 600 mg 03/03/24 21:00 03/04/24 07:58 Guaifenesin 12 Hr 600 Mg Tabcr PO 600 mg Q12HR [facility] Administration Heparin Sodium (Porcine) 5,000 units 03/03/24 09:00 03/03/24 20:26 Heparin Sodium 5,000 Units/Ml Vial SUB-Q 5,000 units Q12HR [facility] Administration Dextrose 1,000 mls @ 100 mls/hr 03/03/24 08:59 Dextrose 5% 1,000 Ml IVPB PRN PRN Hypoglycemia Protocol Cefepime HCl 1 gm in 50 mls @ 100 mls/hr 03/04/24 06:00 03/04/24 06:13 Maxipime 1 Gm/Ns 50 Ml IVPB 100 mls/hr Q24H [facility] Administration Dextrose 1,000 mls @ 100 mls/hr 03/03/24 13:39 Dextrose 5% 1,000 Ml IVPB PRN PRN Hypoglycemia Protocol Albumin Human 50 mls @ 999 mls/hr 03/04/24 06:11 Albutein IVPB 04/03/24 06:10 Q10M PRN HYPOTENSION Vancomycin HCl 750 mg in 250 mls @ 250 mls/hr 03/04/24 18:00 Vancomycin 750 Mg/Ns 250 Ml IVPB 03/04/24 18:59 ONCE ONE Insulin Aspart 2 - 5 units 03/03/24 17:00 03/03/24 17:07 Insulin Aspart (*Bkc) 100 Units/Ml SUB-Q Not Given TIDWM [facility] Protocol Methocarbamol 500 mg 03/03/24 09:00 03/04/24 07:58 Methocarbamol 500 Mg Tablet PO 500 mg TID [facility] Administration Miconazole Nitrate 1 applic 03/04/24 09:00 Miconazole 2% Antifungal Ointment 56 Gm TOPICAL Q12HR [facility] Midodrine 10 mg 03/03/24 14:00 03/04/24 07:58 Midodrine Hcl 10 Mg Tablet PO 10 mg DAILY@0800,1400 [facility] Administration Mirtazapine 15 mg 03/03/24 21:00 03/03/24 20:26 Mirtazapine 15 Mg Tablet PO 15 mg HS [facility] Administration Multivitamins Therapeutic 1 tablet 03/03/24 09:00 03/04/24 08:01 Multivitamins Therapeutic Tab (*Bkc) PO 1 tablet DAILY [facility] Administration Mupirocin 1 applic 03/03/24 21:00 03/04/24 07:58 Mupirocin 2% Oint 22 Gm Tube EACH NARE 03/07/24 21:00 1 applic Q12HR [facility] Administration Oxycodone HCl 5 mg 03/03/24 08:55 Oxycodone Hcl (*Crx) 5 Mg Tab Ir PO Q4H PRN Pain (Scale Score 7-10) Senna/Docusate Sodium 1 tab 03/03/24 08:55 Senna/Docusate Sodium Tablet PO BID PRN Constipation Sertraline HCl 25 mg 03/03/24 21:00 03/03/24 20:26 Sertraline Hcl 25 Mg Tablet PO 25 mg HS [facility] Administration Sevelamer Carbonate 800 mg 03/03/24 09:00 03/04/24 07:58 Sevelamer Carbonate 800 Mg Tablet PO 800 mg TID [facility] Administration Sitagliptin Phosphate 100 mg 03/03/24 09:15 03/03/24 10:07 Sitagliptin Phosphate 100 Mg Tablet PO 100 mg QAM [facility] Administration Tamsulosin HCl 0.4 mg 03/03/24 09:00 03/03/24 10:07 Tamsulosin Hcl 0.4 Mg Capsule PO 0.4 mg DAILY [facility] Administration Tramadol HCl 50 mg 03/03/24 08:55 Tramadol Hcl (*Crx) 50 Mg Tablet PO Q4H PRN Pain (Scale Score 4-6) Vancomycin HCl 1 each 03/04/24 08:26 Vancomycin For Hemodialysis IVPB PRN PRN Vancomycin Protocol Radiology Results: ITS Impressions Chest X-Ray 03/02/24 22:39 IMPRESSION: Mild interstitial edema, similar to the prior examination. Possible small bilateral effusions. Chest CT 03/02/24 23:48 IMPRESSION: Mild interstitial edema. Mediastinal lymphadenopathy. Labs Labs: Laboratory Results - last 24 hr 03/03/24 03/03/24 03/03/24 06:37 11:17 16:15 WBC RBC Hgb Hct MCV MCH MCHC RDW Plt Count MPV Immature Gran % (Auto) Neut % (Auto) Lymph % (Auto) [place] % (Auto) Eos % (Auto) Baso % (Auto) Lymph # (Auto) [place] # (Auto) Eos # (Auto) Baso # (Auto) Abs Immat Gran (auto) Absolute Neuts (auto) Absolute Nucleated RBC Nucleated RBC % % Immature Plt Fraction Sodium Potassium Chloride Carbon Dioxide Anion Gap BUN Creatinine Estim Creat Clear Calc Estimated GFR Glucose POC Capillary Glucose 99 96 Calcium Phosphorus Magnesium Total Bilirubin AST ALT Alkaline Phosphatase Total Protein Albumin Procalcitonin Nasal MRSA (PCR) Detected A* Random Vancomycin Hep Bs Antigen Hep Bs Antibody 03/03/24 03/04/24 03/04/24 20:08 03:56 03:57 WBC 3.1 L RBC 3.22 L Hgb 9.9 L Hct 32.4 L MCV 100.6 H MCH 30.7 MCHC 30.6 L RDW 15.3 H Plt Count 74 L MPV 12.6 H Immature Gran % (Auto) 0.3 Neut % (Auto) 64.1 Lymph % (Auto) 15.9 L [place] % (Auto) 16.2 H Eos % (Auto) 2.9 Baso % (Auto) 0.6 Lymph # (Auto) 0.50 L [place] # (Auto) 0.5 Eos # (Auto) 0.1 Baso # (Auto) 0.0 Abs Immat Gran (auto) 0.01 Absolute Neuts (auto) 2.0 Absolute Nucleated RBC 0.000 Nucleated RBC % 0.0 % Immature Plt Fraction 8.5 Sodium 137 Potassium 4.0 Chloride 100 Carbon Dioxide 30 Anion Gap 7 BUN 41 H D Creatinine 5.30 H Estim Creat Clear Calc 13 Estimated GFR 11 L Glucose 112 H POC Capillary Glucose 125 H Calcium 7.7 L Phosphorus 5.6 H Magnesium 1.9 Total Bilirubin 0.8 AST 24 ALT 11 Alkaline Phosphatase 125 Total Protein 7.0 Albumin 3.2 L Procalcitonin 1.2 Nasal MRSA (PCR) Random Vancomycin 19.9 Hep Bs Antigen Negative Hep Bs Antibody Negative 03/04/24 07:49 WBC RBC Hgb Hct MCV MCH MCHC RDW Plt Count MPV Immature Gran % (Auto) Neut % (Auto) Lymph % (Auto) [place] % (Auto) Eos % (Auto) Baso % (Auto) Lymph # (Auto) [place] # (Auto) Eos # (Auto) Baso # (Auto) Abs Immat Gran (auto) Absolute Neuts (auto) Absolute Nucleated RBC Nucleated RBC % % Immature Plt Fraction Sodium Potassium Chloride Carbon Dioxide Anion Gap BUN Creatinine Estim Creat Clear Calc Estimated GFR Glucose POC Capillary Glucose 109 H Calcium Phosphorus Magnesium Total Bilirubin AST ALT Alkaline Phosphatase Total Protein Albumin Procalcitonin Nasal MRSA (PCR) Random Vancomycin Hep Bs Antigen Hep Bs Antibody Quality VTE Prophylaxis VTE prophylaxis: pharmacologic ordered Hospitalist MIPS Advance Care Plan I have confirmed that the patient's Advanced Care Plan is present, code status is documented, or surrogate decision maker is listed in patient medical record.: Yes Medication Reconciliation I have utilized all available resources to obtain, update and review the patients current medications (includes all prescriptions, OTC, herbals, cannabis, and nutritional supplements).: Yes
[2024-03-04] MEDS: EPOETIN ALFA-EPBX 10,000 UNITS/ML VIAL 10000 UNITS IV PUSH (11:32)
--- NOTE | 2024-03-04 12:20 | P.PNNP_ITS ---
Progress Note: A&P Assessment and Plan (1) ESRD (end stage renal disease): Code(s): N18.6 - End stage renal disease Status: Chronic Assessment and Plan: * HD today * continue M/W/F schedule while hospitalized * follow electrolytes, volume status, and clearance (2) Acute hypoxemic respiratory failure: Code(s): J96.01 - Acute respiratory failure with hypoxia Status: Acute Assessment and Plan: * hypoxia noted on admission in association with productive cough * wheezes and rhonchi on exam in ER * also noted to have low grade fever (100.4?) * volume status okay * concern for possible pneumonia * continue current therapy: * supplemental oxygen * nebulizer treatments * incentive spirometry * antitussive medications * wean supplemental oxygen as toleraed (3) Pneumonia: Qualifiers: Laterality: left Lung location: lower lobe of lung Pneumonia type: due to unspecified organism Qualified Code(s): J18.9 - Pneumonia, unspecified organism Code(s): J18.9 - Pneumonia, unspecified organism Status: Acute Assessment and Plan: * suspected etiology of #2 * noted symptoms of shortness of breath, productive cough, and subjective fevers * resident of nursing facility and recent hospitalization -- hospital/facility acquired infection/pneumonia(?) * follow culture data * on antibiotics * follow clinical status (4) Anemia: Code(s): D64.9 - Anemia, unspecified Status: Chronic Assessment and Plan: * due to ESRD and worsened by #2 & #3/acute illness * Epogen with HD * follow trend of H/H (5) Diabetes mellitus with multiple complications: Code(s): E11.8 - Type 2 diabetes mellitus with unspecified complications Status: Chronic Assessment and Plan: * follow Accu-Cheks * glycemic control per hospitalists Will continue to follow. Subjective Date/time seen: 03/04/24 12:20 Interval history: Follow-up for end stage renal disease on hemodialysis. Tolerating dialysis treatment at the time of my visit (seen on HD at 12:10PM); respiratory status/breathing seems about the same (no worse but no better) -- still requiring supplemental oxygen currently; no apparent distress noted; no issues overnight or earlier this morning. Exam Narrative: General: WD/WN male in NAD Heart: normal S1 and S2; no rub Lungs: coarse breath sounds with bibasilar rhonchi and wheezes Abdomen: soft, nontender, nondistended, positive bowel sounds; s/p bilateral BKAs Extremities: no cyanosis or clubbing; no edema Skin: warm and dry Objective Data Vital Signs Vital Signs: Vital Signs Temp Pulse Resp BP Pulse Ox O2 Del Method O2 Flow Rate 03/04/24 12:15 61 115/42 L 03/04/24 12:00 59 L 110/46 L 98 Nasal Cannula 2 03/04/24 11:45 60 112/44 L 03/04/24 11:30 66 116/51 L 03/04/24 11:15 63 129/52 L 03/04/24 11:00 50 L 112/55 L 03/04/24 10:45 51 L 92/58 L 03/04/24 10:30 52 L 110/52 L 03/04/24 10:00 53 L 96/51 L 03/04/24 09:45 58 L 113/53 L 03/04/24 09:30 43 L 100/53 L 03/04/24 09:15 49 L 105/53 L 03/04/24 09:00 80 120/92 H 03/04/24 08:54 61 104/39 L 03/04/24 08:40 2 03/04/24 08:36 98.8 F 76 20 103/56 L 95 03/04/24 08:00 96 Nasal Cannula 1 03/04/24 08:00 63 03/04/24 07:54 97.1 F L 64 22 H 117/43 L 95 03/04/24 07:56 63 20 03/04/24 07:47 64 20 03/04/24 07:47 95 Nasal Cannula 2 03/04/24 02:38 63 18 03/04/24 06:00 59 L 03/04/24 04:00 99 Nasal Cannula 1 03/04/24 04:00 63 03/04/24 02:00 62 03/04/24 04:28 98.1 F 65 18 118/52 L 99 03/03/24 20:52 63 18 03/04/24 02:28 61 18 03/03/24 20:42 60 18 03/03/24 20:40 97 Nasal Cannula 1 03/04/24 00:21 98.1 F 65 20 110/41 L 99 03/04/24 00:00 63 03/04/24 00:00 99 Nasal Cannula 1 03/03/24 21:55 67 03/03/24 20:00 65 03/03/24 20:00 98 Nasal Cannula 2 03/03/24 20:07 98.1 F 66 20 124/51 L 98 03/03/24 18:00 64 03/03/24 16:32 97.1 F L 63 20 124/52 L 95 03/03/24 16:00 84 18 97 Nasal Cannula 2 03/03/24 16:00 84 Intake/Output Intake/Output: Intake & Output 03/01/24 03/02/24 03/03/24 03/04/24 23:59 23:59 23:59 23:59 Intake Total 1094.2 0 Output Total 1999 Balance 1094.2 -1999 Meds/Results Medications: Active Medications Generic Name Dose Route Start Last Admin Trade Name Freq PRN Reason Stop Dose Admin Acetaminophen 650 mg 03/03/24 03:47 Acetaminophen 325 Mg Tablet PO Q6H PRN Mild Pain (1-3) or Fever Albuterol/Ipratropium 3 ml 03/03/24 14:00 03/04/24 14:08 Ipratropium 0.5 Mg/Albuterol Sulfate 2.5 Mg Ampul.Neb 3 Ml INHALATION 3 ml Q6HRT [facility] Administration Aspirin 81 mg 03/04/24 08:00 03/04/24 07:58 Aspirin 81 Mg Chewable Tablet PO 81 mg DAILY@0800 [facility] Administration Atorvastatin Calcium 40 mg 03/03/24 21:00 03/03/24 20:26 Atorvastatin 40 Mg Tablet PO 40 mg HS [facility] Administration Dextrose 12.5 gm 03/03/24 08:59 Dextrose 50% 25 Gm/50 Ml Syringe IV PUSH PRN PRN Hypoglycemia Protocol Dextrose 12.5 gm 03/03/24 13:39 Dextrose 50% 25 Gm/50 Ml Syringe IV PUSH PRN PRN Hypoglycemia Protocol Epoetin Bradford-epbx 10,000 units 03/04/24 20:00 03/04/24 11:32 Epoetin Bradford-Epbx 10,000 Units/Ml Vial IV PUSH 03/04/24 20:01 10,000 units ONCE ONE Administration Ferrous Sulfate 325 mg 03/03/24 09:05 03/04/24 07:58 Ferrous Sulfate [address] PO 325 mg DAILY [facility] Administration Fish Oil 1 gm 03/03/24 09:00 03/04/24 08:02 [place] 3 Polyunsat Fatty Acids 1 Gm Cap PO 1 gm DAILY [facility] Administration Folic Acid 1 mg 03/03/24 09:00 03/04/24 13:01 Folic Acid 1 Mg Tablet PO 1 mg DAILY [facility] Administration Gabapentin 200 mg 03/03/24 21:00 03/03/24 20:25 Gabapentin 100 Mg Capsule PO 200 mg HS [facility] Administration Glucagon 1 mg 03/03/24 08:59 Glucagon For Inj 1 Mg Vial IM PRN PRN Hypoglycemia Protocol Glucagon 1 mg 03/03/24 13:39 Glucagon For Inj 1 Mg Vial IM PRN PRN Hypoglycemia Protocol Glucose 15 gm 03/03/24 08:59 Glucose Oral Gel 15 Gm Of Glucse In 37.5 Gm Tube PO PRN PRN Hypoglycemia Protocol Glucose 15 gm 03/03/24 13:39 Glucose Oral Gel 15 Gm Of Glucse In 37.5 Gm Tube PO PRN PRN Hypoglycemia Protocol Guaifenesin 600 mg 03/03/24 21:00 03/04/24 07:58 Guaifenesin 12 Hr 600 Mg Tabcr PO 600 mg Q12HR [facility] Administration Heparin Sodium (Porcine) 5,000 units 03/03/24 09:00 03/03/24 20:26 Heparin Sodium 5,000 Units/Ml Vial SUB-Q 5,000 units Q12HR [facility] Administration Dextrose 1,000 mls @ 100 mls/hr 03/03/24 08:59 Dextrose 5% 1,000 Ml IVPB PRN PRN Hypoglycemia Protocol Cefepime HCl 1 gm in 50 mls @ 100 mls/hr 03/04/24 06:00 03/04/24 06:13 Maxipime 1 Gm/Ns 50 Ml IVPB 100 mls/hr Q24H [facility] Administration Dextrose 1,000 mls @ 100 mls/hr 03/03/24 13:39 Dextrose 5% 1,000 Ml IVPB PRN PRN Hypoglycemia Protocol Albumin Human 50 mls @ 999 mls/hr 03/04/24 06:11 Albutein IVPB 04/03/24 06:10 Q10M PRN HYPOTENSION Vancomycin HCl 750 mg in 250 mls @ 250 mls/hr 03/04/24 18:00 Vancomycin 750 Mg/Ns 250 Ml IVPB 03/04/24 18:59 ONCE ONE Insulin Aspart 2 - 5 units 03/03/24 17:00 03/04/24 13:46 Insulin Aspart (*Bkc) 100 Units/Ml SUB-Q Not Given TIDWM [facility] Protocol Methocarbamol 500 mg 03/03/24 09:00 03/04/24 14:26 Methocarbamol 500 Mg Tablet PO 500 mg TID [facility] Administration Miconazole Nitrate 1 applic 03/04/24 09:00 03/04/24 09:00 Miconazole 2% Antifungal Ointment 56 Gm TOPICAL 1 applic Q12HR [facility] Administration Midodrine 10 mg 03/03/24 14:00 03/04/24 14:27 Midodrine Hcl 10 Mg Tablet PO 10 mg DAILY@0800,1400 [facility] Administration Mirtazapine 15 mg 03/03/24 21:00 03/03/24 20:26 Mirtazapine 15 Mg Tablet PO 15 mg HS [facility] Administration Multivitamins Therapeutic 1 tablet 03/03/24 09:00 03/04/24 08:01 Multivitamins Therapeutic Tab (*Bkc) PO 1 tablet DAILY [facility] Administration Mupirocin 1 applic 03/03/24 21:00 03/04/24 07:58 Mupirocin 2% Oint 22 Gm Tube EACH NARE 03/07/24 21:00 1 applic Q12HR [facility] Administration Oxycodone HCl 5 mg 03/03/24 08:55 Oxycodone Hcl (*Crx) 5 Mg Tab Ir PO Q4H PRN Pain (Scale Score 7-10) Senna/Docusate Sodium 1 tab 03/03/24 08:55 Senna/Docusate Sodium Tablet PO BID PRN Constipation Sertraline HCl 25 mg 03/03/24 21:00 03/03/24 20:26 Sertraline Hcl 25 Mg Tablet PO 25 mg HS [facility] Administration Sevelamer Carbonate 800 mg 03/03/24 09:00 03/04/24 14:26 Sevelamer Carbonate 800 Mg Tablet PO 800 mg TID [facility] Administration Sitagliptin Phosphate 100 mg 03/03/24 09:15 03/04/24 07:58 Sitagliptin Phosphate 100 Mg Tablet PO 100 mg QAM [facility] Administration Tamsulosin HCl 0.4 mg 03/03/24 09:00 03/04/24 07:58 Tamsulosin Hcl 0.4 Mg Capsule PO 0.4 mg DAILY [facility] Administration Tramadol HCl 50 mg 03/03/24 08:55 Tramadol Hcl (*Crx) 50 Mg Tablet PO Q4H PRN Pain (Scale Score 4-6) Vancomycin HCl 1 each 03/04/24 08:26 Vancomycin For Hemodialysis IVPB PRN PRN Vancomycin Protocol Radiology Results: ITS Impressions Chest X-Ray 03/02/24 22:39 IMPRESSION: Mild interstitial edema, similar to the prior examination. Possible small bilateral effusions. Chest CT 03/02/24 23:48 IMPRESSION: Mild interstitial edema. Mediastinal lymphadenopathy. Labs Labs: Laboratory Tests 03/04/24 03:57 03/04/24 03:57 Calcium 7.7 L Phosphorus 5.6 H Magnesium 1.9 Total Bilirubin 0.8 AST 24 ALT 11 Alkaline Phosphatase 125 Total Protein 7.0 Albumin 3.2 L Procalcitonin 1.2 Microbiology 03/03/24 01:45 Sputum Sputum Culture - Preliminary 03/02/24 22:29 Blood Blood Culture - Preliminary 03/02/24 22:43 Blood Blood Culture - Preliminary
[2024-03-04] MEDS: FOLIC ACID 1 MG TABLET PO (13:01)
[2024-03-04 16:09] LABS: Glucose Point of Care 164 mg/dl (65-105)
[2024-03-04] MEDS: VANCOMYCIN 750 MG/NS 250 ML 750 MG/250 ML BAG 250 MG IVPB (18:47)
[2024-03-04] MEDS: GABAPENTIN 100 MG CAPSULE 200 MG PO (20:09)
[2024-03-04] MEDS: MIRTAZAPINE 15 MG TABLET PO (20:09)
[2024-03-04] MEDS: SERTRALINE HCL 25 MG TABLET PO (20:09)
[2024-03-04] MEDS: ATORVASTATIN 40 MG TABLET PO (20:09)
[2024-03-04 21:06] LABS: Glucose Point of Care 150 mg/dl (65-105)
[2024-03-05] VITALS (23 sets, daily range): BP systolic 114–141; BP diastolic 43–55; PULSE 53–67; RESP 12–20; TEMP 35.8–36.9; O2SAT 93–99
[2024-03-05] MEDS: IPRATROPIUM 0.5 MG/ALBUTEROL SULFATE 2.5 MG AMPUL.NEB 3 ML INHALATION ×4 (01:45→20:09)
[2024-03-05 04:40] LABS: Basophils Percent Auto 0.7 % (0.2-1.2); Eosinophils Absolute Auto 0.1 K/mm3 (0-0.3); Eosinophils Percent Auto 4.5 % (0-4.4); Hematocrit 30.7 % (42.0-52.0); Hemoglobin 9.6 g/dL (14.0-18.0); Immature Granulocyte Absolute 0.01 K/mm3 (0.00-0.031); Immature Granulocyte Percent A 0.4 % (0-0.5); Immature Platelet Fraction Pct 6.5 % (0.9-11.2); Lymphocytes Absolute Auto 0.65 K/mm3 (0.9-3.2); Lymphocytes Percent Auto 24.2 % (18.3-44.2); Mean Corpuscular HGB Conc 31.3 g/dl (32-36); Mean Corpuscular Hemoglobin 31.5 pg (26-34); Mean Corpuscular Volume 100.7 fl (80-100); Mean Platelet Volume 12.1 fl (7.4-10.4); Monocytes Absolute Auto 0.5 K/mm3 (0.1-0.6); Monocytes Percent Auto 18.2 % (2.6-8.5); Neutrophils Absolute Auto 1.4 K/mm3 (1.3-6.7); Platelet Count Result 78 k/mm3 (150-375); Red Blood Count 3.05 M/mm3 (4.6-6.20); Red Cell Distribution Width 15.3 % (11.5-14.5); White Blood Count 2.7 K/mm3 (4.5-10.0)
[2024-03-05 04:53] LABS: Alanine Aminotransferase 11 U/L (6-50); Albumin Level 3.3 g/dL (3.5-5.1); Alkaline Phosphatase 186 U/L (38-126); Anion Gap 7 mmol/L (4-12); Aspartate Amino Transferase 22 U/L (17-59); Bilirubin,Total 0.7 mg/dL (0.2-1.3); Blood Urea Nitrogen 25 mg/dL (9-20); Calcium 8.1 mg/dL (8.4-10.2); Carbon Dioxide 29 mmol/L (22-30); Chloride 108 mmol/L (98-107); Estimated CRCL calculation 18 ml/min; Estimated Glomerular Filt Rate 16; Glucose 135 mg/dL (65-110); Magnesium 2.1 mg/dL (1.6-2.3); Potassium 3.8 mmol/L (3.4-5.0); Sodium 144 mmol/L (137-145)
[2024-03-05] MEDS: CEFEPIME 1 GM/NS 50 ML 1 GM/50 ML BAG IVPB (05:21)
[2024-03-05 08:37] LABS: Glucose Point of Care 120 mg/dl (65-105)
[2024-03-05] MEDS: SEVELAMER CARBONATE 800 MG TABLET PO ×3 (09:06→16:42)
[2024-03-05] MEDS: OMEGA 3 POLYUNSAT FATTY ACIDS 1 GM CAP PO (09:06)
[2024-03-05] MEDS: methocarbamoL 500 MG TABLET PO ×3 (09:06→16:42)
[2024-03-05] MEDS: TAMSULOSIN HCL 0.4 MG CAPSULE PO (09:06)
[2024-03-05] MEDS: ASPIRIN 81 MG CHEWABLE TABLET PO (09:06)
[2024-03-05] MEDS: MULTIVITAMINS THERAPEUTIC TAB (*BKC) 1 TABLET PO (09:06)
[2024-03-05] MEDS: FOLIC ACID 1 MG TABLET PO (09:07)
[2024-03-05] MEDS: SITagliptin PHOSPHATE 100 MG TABLET PO (09:07)
[2024-03-05] MEDS: guaiFENesin 12 HR 600 MG TABCR PO ×2 (09:07→20:41)
[2024-03-05] MEDS: FERROUS SULFATE 325 MG TABLET DR PO (09:07)
[2024-03-05] MEDS: MUPIROCIN 2% OINT 22 GM TUBE 1 APPLIC EACH NARE ×2 (09:07→20:40)
[2024-03-05] MEDS: MIDODRINE HCL 10 MG TABLET PO ×2 (09:16→13:03)
[2024-03-05] MEDS: HEPARIN SODIUM 5,000 UNITS/ML VIAL 5000 UNITS SUB-Q ×2 (09:16→20:40)
--- NOTE | 2024-03-05 10:47 | P.PNIM_ITS ---
Progress Note: A&P Assessment and Plan (1) Acute hypoxemic respiratory failure: Code(s): J96.01 - Acute respiratory failure with hypoxia Status: Acute Assessment and Plan: Patient with acute shortness of breath, productive sputum, and subjective chills with new oxygen requirement of 2 L. he was found to be sating 87% on room air on arrival to the emergency room. He does have expiratory wheeze on exam * White count 3.6 * T-max 100.4? * Patient was started on cefepime and vancomycin given he lives in a long-term care facility and MRSA of the nares was positive. * Placed on isolation for MRSA. Mupirocin to nares. * Blood cultures and sputum culture pending * Incentive spirometry * Guaifenesin b.i.d. * Scheduled DuoNebs * Last hemodialysis was yesterday and approximately 1 L removed. He does not appear fluid overloaded. Nephrology consulted. * Echocardiogram was ordered * 03/04 noted o2 on his forehead- sats ok- ok to stop oxygen and monitor saturation - IS - contineu antibiotics 03/05- on 1 l per nc- wean oxygen if able (2) Pneumonia: Qualifiers: Laterality: left Lung location: lower lobe of lung Pneumonia type: due to unspecified organism Qualified Code(s): J18.9 - Pneumonia, unspecified organism Code(s): J18.9 - Pneumonia, unspecified organism Status: Acute Assessment and Plan: -shortness of breath, productive cough, and subjective fevers - resident of nursing facility and recent hospitalization * pending culture data * on antibiotics-continue * clinically improving slowly (3) End-stage renal disease on hemodialysis: Code(s): N18.6 - End stage renal disease; Z99.2 - Dependence on renal dialysis Status: Acute Assessment and Plan: nephrology following Plan h/o t2dm- accucheck ac/hs, SS, hypoglycemia protocol Feeding:renal diet Analgesia:tylenol Thromboembolic prophylaxis: heparin Glycemic control: ac/hs accu checks, hypoglycemia protocol, SSI low dose Bowel regimen: N/A at this time. Had loose stool yesterday Lines: PIV Antibiotics: Cefepime and vanco Disposition: Return to SNF Time Spent With Patient Time with patient: 25 - 35 minutes Subjective Date/time seen: 03/05/24 10:47 Interval history: This is a 58-year-old male with a past medical history significant for end-stage renal disease on hemodialysis Saturday, anemia, systolic and diastolic congestive heart failure, coronary artery disease, hypertension, hyperlipidemia, and type 2 diabetes who presented to the emergency room from his residential with complaints of shortness of breath. History is provided by the patient and supplemental chart review. Patient received hemodialysis yesterday as previously scheduled and then developed sudden shortness of breath, productive cough with clear to yellow sputum, and subjective fever and chills. He is unsure of the exact amount but but states they removed 1 L something at dialysis. Also reports some mild headache and nausea this morning. He did experienced 1 episode of loose stool yesterday. He denies dizziness, chest pain, abdominal pain, or constipation. On exam he is drowsy but does open his eyes to verbal stimuli and answers questions appropriately. He appears as though he does not feel well. He is wearing an event monitor that he says was ordered by his radiation therapy technician. In the ER labs were significant for white blood cell count 3.6, hemoglobin 10.2, sodium 135, potassium 4, BUN 28, creatinine 3.50, glucose 164, and troponin 0.042. Chest x-ray showed mild interstitial edema and small pleural effusions. CT chest shows mediastinal lymphadenopathy. He received 1 gram of Tylenol, Rocephin, and Azithromycin for possible pneumonia. Antibiotics were escalated to Cefepime given he lives in a residential. MRSA of the nares was positive and therefore vancomycin was added. Blood and urine cultures were drawn and are pending. Nephrology was consulted for hemodialysis. He is admitted in this setting for further treatment and evaluation. 03/04- pt is seen and examined today around 1400 (pt was getting dialysis earlier). pt is alert, oriented, pleasant. reports no issues today. will move out if IMU today. 03/05- down to 1 l per NC- wean off if able. Nephrology is following for dialysis needs. anticipate discharge back to [facility] will continue antibiotics for now. Pending transfer out of IMU. Review of Systems Review of Systems: All systems reviewed & are unremarkable except as noted in HPI and below Exam Narrative: General: appears stated age, pleasant HEENT: normocephalic, atraumatic. Mucous membranes moist. EOMI, PERRLA, bilateral sclera anicteric, no conjunctival injection. Neck supple without JVD, lymphadenopathy, or bruit. Respiratory: Lung sounds are coarse with rhonchi and expiratory wheeze bilaterally. On 2 L nasal cannula Cardiovascular: Regular rate and rhythm, normal S1-S2 upon auscultation. No murmurs, rubs, or clicks. PMI is nondisplaced, capillary refill less than 3 second. Telemetry is sinus rhythm. Abdomen: Soft, round, no pulsatile masses, nondistended and mildly tender. No rebound, no guarding. No CVA tenderness, no hepatosplenomegaly. Bowel sounds present to all four quadrants. No high pitch or tinkling sounds, resonant to percussion. Extremities: No cyanosis, clubbing, or edema present. Pulses are palpable. Active ROM. Bilateral BKA. Neuro: Drowsy and orientated x 4. PERRLA. Cranial nerves 2-12 intact without focal deficit. Skin: Warm, dry, and intact, without rash, erythema, or lesion. Lines: PIV, LISA graft with +bruit and +thrill Incisions: NA Psych: cooperative, normal speech, normal affect, no hallucinations, no dysarthria Const: General: comfortable Objective Data Vital Signs Vital Signs: Vital Signs - 24 hr 03/04/24 11:00 03/04/24 11:15 03/04/24 11:30 Temperature Pulse Rate 50 L 63 66 Respiratory Rate Blood Pressure 112/55 L 129/52 L 116/51 L Pulse Oximetry Oxygen Delivery Oxygen Flow Rate 03/04/24 12:00 03/04/24 12:00 03/04/24 11:45 Temperature Pulse Rate 66 60 Respiratory Rate Blood Pressure 112/44 L Pulse Oximetry 98 Oxygen Delivery Nasal Cannula Oxygen Flow Rate 2 03/04/24 12:45 03/04/24 12:00 03/04/24 12:15 Temperature 98.4 F Pulse Rate 70 59 L 61 Respiratory Rate 20 Blood Pressure 94/47 L 110/46 L 115/42 L Pulse Oximetry 100 Oxygen Delivery Oxygen Flow Rate 03/04/24 12:27 03/04/24 14:09 03/04/24 14:15 Temperature Pulse Rate 56 L 70 69 Respiratory Rate 20 20 Blood Pressure 104/54 L Pulse Oximetry Oxygen Delivery Oxygen Flow Rate 03/04/24 14:00 03/04/24 16:34 03/04/24 16:00 Temperature 96.6 F L Pulse Rate 69 74 74 Respiratory Rate 20 Blood Pressure 118/44 L Pulse Oximetry 98 Oxygen Delivery Oxygen Flow Rate 03/04/24 18:00 03/04/24 20:13 03/04/24 20:00 Temperature 97.6 F Pulse Rate 74 60 Respiratory Rate 20 Blood Pressure 129/50 L Pulse Oximetry 99 99 Oxygen Delivery Nasal Cannula Oxygen Flow Rate 1 03/04/24 20:25 03/04/24 20:25 03/04/24 20:31 Temperature Pulse Rate 58 L 58 L Respiratory Rate 20 20 Blood Pressure Pulse Oximetry 97 Oxygen Delivery Nasal Cannula Oxygen Flow Rate 1 03/04/24 20:00 03/04/24 21:56 03/04/24 23:30 Temperature 97.6 F Pulse Rate 67 70 66 Respiratory Rate 20 Blood Pressure 125/50 L Pulse Oximetry 96 Oxygen Delivery Oxygen Flow Rate 03/05/24 00:00 03/05/24 01:46 03/05/24 01:53 Temperature Pulse Rate 65 54 L 53 L Respiratory Rate 20 20 Blood Pressure Pulse Oximetry Oxygen Delivery Oxygen Flow Rate 03/05/24 02:00 03/05/24 04:00 03/05/24 05:26 Temperature 96.5 F L Pulse Rate 63 66 60 Respiratory Rate 18 Blood Pressure 121/43 L Pulse Oximetry 99 Oxygen Delivery Oxygen Flow Rate 03/05/24 07:12 03/05/24 07:12 03/05/24 07:20 Temperature Pulse Rate 56 L 56 L Respiratory Rate 20 20 Blood Pressure Pulse Oximetry 98 Oxygen Delivery Nasal Cannula Oxygen Flow Rate 1 03/05/24 07:40 03/05/24 08:00 03/05/24 08:00 Temperature 98.0 F Pulse Rate 61 67 Respiratory Rate 16 Blood Pressure 130/44 L Pulse Oximetry 94 98 Oxygen Delivery Nasal Cannula Oxygen Flow Rate 1 03/05/24 10:00 Temperature Pulse Rate 65 Respiratory Rate Blood Pressure Pulse Oximetry Oxygen Delivery Oxygen Flow Rate Intake/Output Intake/Output: Intake & Output 03/02/24 03/03/24 03/04/24 03/05/24 23:59 23:59 23:59 23:59 Intake Total 1094.2 510 320 Output Total 2000 0 Balance 1094.2 -1490 320 Meds/Results Medications: Active Medications Generic Name Dose Route Start Last Admin Trade Name Freq PRN Reason Stop Dose Admin Acetaminophen 650 mg 03/03/24 03:47 Acetaminophen 325 Mg Tablet PO Q6H PRN Mild Pain (1-3) or Fever Albuterol/Ipratropium 3 ml 03/03/24 14:00 03/05/24 07:12 Ipratropium 0.5 Mg/Albuterol Sulfate 2.5 Mg Ampul.Neb 3 Ml INHALATION 3 ml Q6HRT [facility] Administration Aspirin 81 mg 03/04/24 08:00 03/05/24 09:06 Aspirin 81 Mg Chewable Tablet PO 81 mg DAILY@0800 [facility] Administration Atorvastatin Calcium 40 mg 03/03/24 21:00 03/04/24 20:09 Atorvastatin 40 Mg Tablet PO 40 mg HS [facility] Administration Dextrose 12.5 gm 03/03/24 08:59 Dextrose 50% 25 Gm/50 Ml Syringe IV PUSH PRN PRN Hypoglycemia Protocol Dextrose 12.5 gm 03/03/24 13:39 Dextrose 50% 25 Gm/50 Ml Syringe IV PUSH PRN PRN Hypoglycemia Protocol Ferrous Sulfate 325 mg 03/03/24 09:05 03/05/24 09:07 Ferrous Sulfate [address] PO 325 mg DAILY [facility] Administration Fish Oil 1 gm 03/03/24 09:00 03/05/24 09:06 [place] 3 Polyunsat Fatty Acids 1 Gm Cap PO 1 gm DAILY [facility] Administration Folic Acid 1 mg 03/03/24 09:00 03/05/24 09:07 Folic Acid 1 Mg Tablet PO 1 mg DAILY [facility] Administration Gabapentin 200 mg 03/03/24 21:00 03/04/24 20:09 Gabapentin 100 Mg Capsule PO 200 mg HS [facility] Administration Glucagon 1 mg 03/03/24 08:59 Glucagon For Inj 1 Mg Vial IM PRN PRN Hypoglycemia Protocol Glucagon 1 mg 03/03/24 13:39 Glucagon For Inj 1 Mg Vial IM PRN PRN Hypoglycemia Protocol Glucose 15 gm 03/03/24 08:59 Glucose Oral Gel 15 Gm Of Glucse In 37.5 Gm Tube PO PRN PRN Hypoglycemia Protocol Glucose 15 gm 03/03/24 13:39 Glucose Oral Gel 15 Gm Of Glucse In 37.5 Gm Tube PO PRN PRN Hypoglycemia Protocol Guaifenesin 600 mg 03/03/24 21:00 03/05/24 09:07 Guaifenesin 12 Hr 600 Mg Tabcr PO 600 mg Q12HR [facility] Administration Heparin Sodium (Porcine) 5,000 units 03/03/24 09:00 03/05/24 09:16 Heparin Sodium 5,000 Units/Ml Vial SUB-Q 5,000 units Q12HR [facility] Administration Dextrose 1,000 mls @ 100 mls/hr 03/03/24 08:59 Dextrose 5% 1,000 Ml IVPB PRN PRN Hypoglycemia Protocol Cefepime HCl 1 gm in 50 mls @ 100 mls/hr 03/04/24 06:00 03/05/24 05:21 Maxipime 1 Gm/Ns 50 Ml IVPB 100 mls/hr Q24H [facility] Administration Dextrose 1,000 mls @ 100 mls/hr 03/03/24 13:39 Dextrose 5% 1,000 Ml IVPB PRN PRN Hypoglycemia Protocol Albumin Human 50 mls @ 999 mls/hr 03/04/24 06:11 Albutein IVPB 04/03/24 06:10 Q10M PRN HYPOTENSION Methocarbamol 500 mg 03/03/24 09:00 03/05/24 09:06 Methocarbamol 500 Mg Tablet PO 500 mg TID [facility] Administration Miconazole Nitrate 1 applic 03/04/24 09:00 03/05/24 09:08 Miconazole 2% Antifungal Ointment 56 Gm TOPICAL 1 applic Q12HR [facility] Administration Midodrine 10 mg 03/03/24 14:00 03/05/24 09:16 Midodrine Hcl 10 Mg Tablet PO 10 mg DAILY@0800,1400 [facility] Administration Mirtazapine 15 mg 03/03/24 21:00 03/04/24 20:09 Mirtazapine 15 Mg Tablet PO 15 mg HS [facility] Administration Multivitamins Therapeutic 1 tablet 03/03/24 09:00 03/05/24 09:06 Multivitamins Therapeutic Tab (*Bkc) PO 1 tablet DAILY [facility] Administration Mupirocin 1 applic 03/03/24 21:00 03/05/24 09:07 Mupirocin 2% Oint 22 Gm Tube EACH NARE 03/07/24 21:00 1 applic Q12HR [facility] Administration Oxycodone HCl 5 mg 03/03/24 08:55 Oxycodone Hcl (*Crx) 5 Mg Tab Ir PO Q4H PRN Pain (Scale Score 7-10) Senna/Docusate Sodium 1 tab 03/03/24 08:55 Senna/Docusate Sodium Tablet PO BID PRN Constipation Sertraline HCl 25 mg 03/03/24 21:00 03/04/24 20:09 Sertraline Hcl 25 Mg Tablet PO 25 mg HS [facility] Administration Sevelamer Carbonate 800 mg 03/03/24 09:00 03/05/24 09:06 Sevelamer Carbonate 800 Mg Tablet PO 800 mg TID [facility] Administration Sitagliptin Phosphate 100 mg 03/03/24 09:15 03/05/24 09:07 Sitagliptin Phosphate 100 Mg Tablet PO 100 mg QAM [facility] Administration Tamsulosin HCl 0.4 mg 03/03/24 09:00 03/05/24 09:06 Tamsulosin Hcl 0.4 Mg Capsule PO 0.4 mg DAILY [facility] Administration Tramadol HCl 50 mg 03/03/24 08:55 Tramadol Hcl (*Crx) 50 Mg Tablet PO Q4H PRN Pain (Scale Score 4-6) Vancomycin HCl 1 each 03/04/24 08:26 Vancomycin For Hemodialysis IVPB PRN PRN Vancomycin Protocol Radiology Results: ITS Impressions Chest X-Ray 03/02/24 22:39 IMPRESSION: Mild interstitial edema, similar to the prior examination. Possible small bilateral effusions. Chest CT 03/02/24 23:48 IMPRESSION: Mild interstitial edema. Mediastinal lymphadenopathy. Labs Labs: Laboratory Results - last 24 hr 03/04/24 03/04/24 03/05/24 15:51 20:53 04:05 WBC 2.7 L RBC 3.05 L Hgb 9.6 L Hct 30.7 L MCV 100.7 H MCH 31.5 MCHC 31.3 L RDW 15.3 H Plt Count 78 L MPV 12.1 H Immature Gran % (Auto) 0.4 Neut % (Auto) 52.0 Lymph % (Auto) 24.2 [place] % (Auto) 18.2 H Eos % (Auto) 4.5 H Baso % (Auto) 0.7 Lymph # (Auto) 0.65 L [place] # (Auto) 0.5 Eos # (Auto) 0.1 Baso # (Auto) 0.0 Abs Immat Gran (auto) 0.01 Absolute Neuts (auto) 1.4 Absolute Nucleated RBC 0.000 Nucleated RBC % 0.0 % Immature Plt Fraction 6.5 Sodium 144 Potassium 3.8 Chloride 108 H Carbon Dioxide 29 Anion Gap 7 BUN 25 H D Creatinine 3.80 H Estim Creat Clear Calc 18 Estimated GFR 16 L Glucose 135 H POC Capillary Glucose 164 H 150 H Calcium 8.1 L Phosphorus 3.0 Magnesium 2.1 Total Bilirubin 0.7 AST 22 ALT 11 Alkaline Phosphatase 186 H Total Protein 7.0 Albumin 3.3 L 03/05/24 07:44 WBC RBC Hgb Hct MCV MCH MCHC RDW Plt Count MPV Immature Gran % (Auto) Neut % (Auto) Lymph % (Auto) [place] % (Auto) Eos % (Auto) Baso % (Auto) Lymph # (Auto) [place] # (Auto) Eos # (Auto) Baso # (Auto) Abs Immat Gran (auto) Absolute Neuts (auto) Absolute Nucleated RBC Nucleated RBC % % Immature Plt Fraction Sodium Potassium Chloride Carbon Dioxide Anion Gap BUN Creatinine Estim Creat Clear Calc Estimated GFR Glucose POC Capillary Glucose 120 H Calcium Phosphorus Magnesium Total Bilirubin AST ALT Alkaline Phosphatase Total Protein Albumin Quality VTE Prophylaxis VTE prophylaxis: pharmacologic ordered
--- NOTE | 2024-03-05 11:13 | P.PNNP_ITS ---
Progress Note: A&P Assessment and Plan (1) ESRD (end stage renal disease): Code(s): N18.6 - End stage renal disease Status: Chronic Assessment and Plan: * HD tomorrow * continue M/W/F schedule while hospitalized * follow electrolytes, volume status, and clearance (2) Acute hypoxemic respiratory failure: Code(s): J96.01 - Acute respiratory failure with hypoxia Status: Acute Assessment and Plan: * hypoxia noted on admission in association with productive cough * wheezes and rhonchi on exam in ER * also noted to have low grade fever (100.4?) on admission * volume status okay * concern for possible pneumonia * continue current therapy: * supplemental oxygen * nebulizer treatments * incentive spirometry * antitussive medications * wean supplemental oxygen as toleraed (3) Pneumonia: Qualifiers: Laterality: left Lung location: lower lobe of lung Pneumonia type: due to unspecified organism Qualified Code(s): J18.9 - Pneumonia, unspecified organism Code(s): J18.9 - Pneumonia, unspecified organism Status: Acute Assessment and Plan: * suspected etiology of #2 * noted symptoms of shortness of breath, productive cough, and subjective fevers * resident of nursing facility and recent hospitalization -- hospital/facility acquired infection/pneumonia(?) * follow culture data * on antibiotics * follow clinical status (4) Anemia: Code(s): D64.9 - Anemia, unspecified Status: Chronic Assessment and Plan: * due to ESRD and worsened by #2 * Epogen with HD * follow trend of H/H (5) Diabetes mellitus with multiple complications: Code(s): E11.8 - Type 2 diabetes mellitus with unspecified complications Status: Chronic Assessment and Plan: * follow Accu-Cheks * glycemic control per hospitalists Will continue to follow. Subjective Date/time seen: 03/05/24 11:13 Interval history: Follow-up for end stage renal disease on hemodialysis. Tolerated dialysis treatment yesterday without any issues or problems; respiratory status/breathing appears to be slowly improving; weaned down to 1L of oxygen by nasal cannula; no apparent distress noted at the time of my visit. Exam 2 Narrative: General: WD/WN male in NAD Heart: normal S1 and S2; no rub Lungs: coarse breath sounds; decreased at bases Abdomen: soft, nontender, nondistended, positive bowel sounds; s/p bilateral BKAs Extremities: no cyanosis or clubbing; no edema Skin: warm and intact Objective Data Vital Signs Vital Signs: Vital Signs Temp Pulse Resp BP Pulse Ox O2 Del Method O2 Flow Rate 03/05/24 10:00 65 03/05/24 08:00 98 Nasal Cannula 1 03/05/24 08:00 67 03/05/24 07:40 98.0 F 61 16 130/44 L 94 03/05/24 07:20 56 L 20 03/05/24 07:12 56 L 20 03/05/24 07:12 98 Nasal Cannula 1 03/05/24 05:26 96.5 F L 60 18 121/43 L 99 03/05/24 04:00 66 03/05/24 02:00 63 03/05/24 01:53 53 L 20 03/05/24 01:46 54 L 20 03/05/24 00:00 65 03/04/24 23:30 97.6 F 66 20 125/50 L 96 Intake/Output Intake/Output: Intake & Output 03/02/24 03/03/24 03/04/24 03/05/24 23:59 23:59 23:59 23:59 Intake Total 1094.2 510 1880 Output Total 2000 0 Balance 1094.2 -1490 1880 Meds/Results Medications: Active Medications Generic Name Dose Route Start Last Admin Trade Name Freq PRN Reason Stop Dose Admin Acetaminophen 650 mg 03/03/24 03:47 Acetaminophen 325 Mg Tablet PO Q6H PRN Mild Pain (1-3) or Fever Albuterol/Ipratropium 3 ml 03/03/24 14:00 03/05/24 20:09 Ipratropium 0.5 Mg/Albuterol Sulfate 2.5 Mg Ampul.Neb 3 Ml INHALATION 3 ml Q6HRT [facility] Administration Aspirin 81 mg 03/04/24 08:00 03/05/24 09:06 Aspirin 81 Mg Chewable Tablet PO 81 mg DAILY@0800 [facility] Administration Atorvastatin Calcium 40 mg 03/03/24 21:00 03/05/24 20:40 Atorvastatin 40 Mg Tablet PO 40 mg HS [facility] Administration Dextrose 12.5 gm 03/03/24 08:59 Dextrose 50% 25 Gm/50 Ml Syringe IV PUSH PRN PRN Hypoglycemia Protocol Dextrose 12.5 gm 03/03/24 13:39 Dextrose 50% 25 Gm/50 Ml Syringe IV PUSH PRN PRN Hypoglycemia Protocol Ferrous Sulfate 325 mg 03/03/24 09:05 03/05/24 09:07 Ferrous Sulfate [address] PO 325 mg DAILY [facility] Administration Fish Oil 1 gm 03/03/24 09:00 03/05/24 09:06 Delta 3 Polyunsat Fatty Acids 1 Gm Cap PO 1 gm DAILY [facility] Administration Folic Acid 1 mg 03/03/24 09:00 03/05/24 09:07 Folic Acid 1 Mg Tablet PO 1 mg DAILY [facility] Administration Gabapentin 200 mg 03/03/24 21:00 03/05/24 20:40 Gabapentin 100 Mg Capsule PO 200 mg HS [facility] Administration Glucagon 1 mg 03/03/24 08:59 Glucagon For Inj 1 Mg Vial IM PRN PRN Hypoglycemia Protocol Glucagon 1 mg 03/03/24 13:39 Glucagon For Inj 1 Mg Vial IM PRN PRN Hypoglycemia Protocol Glucose 15 gm 03/03/24 08:59 Glucose Oral Gel 15 Gm Of Glucse In 37.5 Gm Tube PO PRN PRN Hypoglycemia Protocol Glucose 15 gm 03/03/24 13:39 Glucose Oral Gel 15 Gm Of Glucse In 37.5 Gm Tube PO PRN PRN Hypoglycemia Protocol Guaifenesin 600 mg 03/03/24 21:00 03/05/24 20:41 Guaifenesin 12 Hr 600 Mg Tabcr PO 600 mg Q12HR [facility] Administration Heparin Sodium (Porcine) 5,000 units 03/03/24 09:00 03/05/24 20:40 Heparin Sodium 5,000 Units/Ml Vial SUB-Q 5,000 units Q12HR [facility] Administration Dextrose 1,000 mls @ 100 mls/hr 03/03/24 08:59 Dextrose 5% 1,000 Ml IVPB PRN PRN Hypoglycemia Protocol Cefepime HCl 1 gm in 50 mls @ 100 mls/hr 03/04/24 06:00 03/05/24 05:21 Maxipime 1 Gm/Ns 50 Ml IVPB 100 mls/hr Q24H [facility] Administration Dextrose 1,000 mls @ 100 mls/hr 03/03/24 13:39 Dextrose 5% 1,000 Ml IVPB PRN PRN Hypoglycemia Protocol Albumin Human 50 mls @ 999 mls/hr 03/04/24 06:11 Albutein IVPB 04/03/24 06:10 Q10M PRN HYPOTENSION Methocarbamol 500 mg 03/03/24 09:00 03/05/24 16:42 Methocarbamol 500 Mg Tablet PO 500 mg TID [facility] Administration Miconazole Nitrate 1 applic 03/04/24 09:00 03/05/24 20:42 Miconazole 2% Antifungal Ointment 56 Gm TOPICAL 1 applic Q12HR [facility] Administration Midodrine 10 mg 03/03/24 14:00 03/05/24 13:03 Midodrine Hcl 10 Mg Tablet PO 10 mg DAILY@0800,1400 [facility] Administration Mirtazapine 15 mg 03/03/24 21:00 03/05/24 20:40 Mirtazapine 15 Mg Tablet PO 15 mg HS [facility] Administration Multivitamins Therapeutic 1 tablet 03/03/24 09:00 03/05/24 09:06 Multivitamins Therapeutic Tab (*Bkc) PO 1 tablet DAILY [facility] Administration Mupirocin 1 applic 03/03/24 21:00 03/05/24 20:40 Mupirocin 2% Oint 22 Gm Tube EACH NARE 03/07/24 21:00 1 applic Q12HR [facility] Administration Oxycodone HCl 5 mg 03/03/24 08:55 Oxycodone Hcl (*Crx) 5 Mg Tab Ir PO Q4H PRN Pain (Scale Score 7-10) Senna/Docusate Sodium 1 tab 03/03/24 08:55 Senna/Docusate Sodium Tablet PO BID PRN Constipation Sertraline HCl 25 mg 03/03/24 21:00 03/05/24 20:40 Sertraline Hcl 25 Mg Tablet PO 25 mg HS [facility] Administration Sevelamer Carbonate 800 mg 03/03/24 09:00 03/05/24 16:42 Sevelamer Carbonate 800 Mg Tablet PO 800 mg TID [facility] Administration Sitagliptin Phosphate 100 mg 03/03/24 09:15 03/05/24 09:07 Sitagliptin Phosphate 100 Mg Tablet PO 100 mg QAM [facility] Administration Tamsulosin HCl 0.4 mg 03/03/24 09:00 03/05/24 09:06 Tamsulosin Hcl 0.4 Mg Capsule PO 0.4 mg DAILY [facility] Administration Tramadol HCl 50 mg 03/03/24 08:55 Tramadol Hcl (*Crx) 50 Mg Tablet PO Q4H PRN Pain (Scale Score 4-6) Vancomycin HCl 1 each 03/04/24 08:26 Vancomycin For Hemodialysis IVPB PRN PRN Vancomycin Protocol Radiology Results: ITS Impressions Chest X-Ray 03/02/24 22:39 IMPRESSION: Mild interstitial edema, similar to the prior examination. Possible small bilateral effusions. Chest CT 03/02/24 23:48 IMPRESSION: Mild interstitial edema. Mediastinal lymphadenopathy. Labs Labs: Laboratory Results - last 24 hr 03/05/24 04:05 WBC 2.7 L Hgb 9.6 L Hct 30.7 L Plt Count 78 L Sodium 144 Potassium 3.8 Chloride 108 H Carbon Dioxide 29 Anion Gap 7 BUN 25 H D Creatinine 3.80 H Estim Creat Clear Calc 18 Estimated GFR 16 L Glucose 135 H Calcium 8.1 L Phosphorus 3.0 Magnesium 2.1 Total Bilirubin 0.7 AST 22 ALT 11 Alkaline Phosphatase 186 H Total Protein 7.0 Albumin 3.3 L
[2024-03-05 12:13] LABS: Glucose Point of Care 148 mg/dl (65-105)
[2024-03-05 20:39] LABS: Glucose Point of Care 162 mg/dl (65-105)
[2024-03-05] MEDS: SERTRALINE HCL 25 MG TABLET PO (20:40)
[2024-03-05] MEDS: GABAPENTIN 100 MG CAPSULE 200 MG PO (20:40)
[2024-03-05] MEDS: MIRTAZAPINE 15 MG TABLET PO (20:40)
[2024-03-05] MEDS: ATORVASTATIN 40 MG TABLET PO (20:40)
[2024-03-06] VITALS (30 sets, daily range): BP systolic 127–147; BP diastolic 36–67; PULSE 53–68; RESP 16–24; TEMP 36.4–37.1; O2SAT 90–95
[2024-03-06] MEDS: IPRATROPIUM 0.5 MG/ALBUTEROL SULFATE 2.5 MG AMPUL.NEB 3 ML INHALATION ×3 (02:49→13:11)
[2024-03-06 05:11] LABS: Basophils Percent Auto 0.7 % (0.2-1.2); Eosinophils Absolute Auto 0.2 K/mm3 (0-0.3); Eosinophils Percent Auto 6.8 % (0-4.4); Hematocrit 31.3 % (42.0-52.0); Hemoglobin 9.7 g/dL (14.0-18.0); Immature Granulocyte Absolute 0.02 K/mm3 (0.00-0.031); Immature Granulocyte Percent A 0.7 % (0-0.5); Immature Platelet Fraction Pct 6.3 % (0.9-11.2); Lymphocytes Absolute Auto 0.62 K/mm3 (0.9-3.2); Lymphocytes Percent Auto 22.3 % (18.3-44.2); Mean Corpuscular Hemoglobin 31.1 pg (26-34); Mean Corpuscular Volume 100.3 fl (80-100); Mean Platelet Volume 12.7 fl (7.4-10.4); Monocytes Absolute Auto 0.3 K/mm3 (0.1-0.6); Monocytes Percent Auto 11.2 % (2.6-8.5); Neutrophils Absolute Auto 1.6 K/mm3 (1.3-6.7); Neutrophils Percent Auto 58.3 % (45.5-73.1); Platelet Count Result 84 k/mm3 (150-375); Red Blood Count 3.12 M/mm3 (4.6-6.20); Red Cell Distribution Width 15.4 % (11.5-14.5); White Blood Count 2.8 K/mm3 (4.5-10.0)
[2024-03-06] MEDS: CEFEPIME 1 GM/NS 50 ML 1 GM/50 ML BAG IVPB (05:15)
[2024-03-06 05:24] LABS: Alanine Aminotransferase 10 U/L (6-50); Albumin Level 3.3 g/dL (3.5-5.1); Alkaline Phosphatase 152 U/L (38-126); Anion Gap 7 mmol/L (4-12); Aspartate Amino Transferase 21 U/L (17-59); Blood Urea Nitrogen 35 mg/dL (9-20); Calcium 8.1 mg/dL (8.4-10.2); Carbon Dioxide 27 mmol/L (22-30); Chloride 107 mmol/L (98-107); Estimated CRCL calculation 13 ml/min; Estimated Glomerular Filt Rate 12; Glucose 119 mg/dL (65-110); Magnesium 2.1 mg/dL (1.6-2.3); Sodium 141 mmol/L (137-145)
[2024-03-06 05:31] LABS: Vancomycin Random 24.9 ug/mL (10-20)
[2024-03-06 05:49] LABS: Hypochromasia 1+; Platelet Estimate Decreased (Adequate)
[2024-03-06 05:50] LABS: Anisocytosis 1+; Poikilocytosis 1+; Schistocytes Rare
[2024-03-06] MEDS: ASPIRIN 81 MG CHEWABLE TABLET PO (07:50)
[2024-03-06] MEDS: FERROUS SULFATE 325 MG TABLET DR PO (07:50)
[2024-03-06] MEDS: SITagliptin PHOSPHATE 100 MG TABLET PO (07:50)
[2024-03-06] MEDS: MIDODRINE HCL 10 MG TABLET PO ×2 (07:50→13:30)
[2024-03-06] MEDS: guaiFENesin 12 HR 600 MG TABCR PO (07:51)
[2024-03-06] MEDS: SEVELAMER CARBONATE 800 MG TABLET PO ×2 (07:51→13:30)
[2024-03-06] MEDS: methocarbamoL 500 MG TABLET PO ×2 (07:51→13:30)
[2024-03-06] MEDS: FOLIC ACID 1 MG TABLET PO (07:51)
[2024-03-06] MEDS: TAMSULOSIN HCL 0.4 MG CAPSULE PO (07:51)
[2024-03-06] MEDS: OMEGA 3 POLYUNSAT FATTY ACIDS 1 GM CAP PO (07:53)
[2024-03-06] MEDS: HEPARIN SODIUM 5,000 UNITS/ML VIAL 5000 UNITS SUB-Q (07:53)
[2024-03-06] MEDS: MUPIROCIN 2% OINT 22 GM TUBE 1 APPLIC EACH NARE (07:54)
[2024-03-06] MEDS: MULTIVITAMINS THERAPEUTIC TAB (*BKC) 1 TABLET PO (07:54)
[2024-03-06 08:09] LABS: Glucose Point of Care 137 mg/dl (65-105)
--- NOTE | 2024-03-06 08:40 | PC.NURSE ---
Patient to dialysis via bed.
--- NOTE | 2024-03-06 09:45 | P.PNNP_ITS ---
Progress Note: A&P Assessment and Plan (1) ESRD (end stage renal disease): Code(s): N18.6 - End stage renal disease Status: Chronic Assessment and Plan: * HD today * continue M/W/F schedule while hospitalized * follow electrolytes, volume status, and clearance (2) Acute hypoxemic respiratory failure: Code(s): J96.01 - Acute respiratory failure with hypoxia Status: Acute Assessment and Plan: * clinical improvement noted * hypoxia noted on admission in association with productive cough * wheezes and rhonchi on exam in ER * also noted to have low grade fever (100.4?) on admission * volume status okay * concern for possible pneumonia * continue current therapy: * supplemental oxygen * nebulizer treatments * incentive spirometry * antitussive medications * off supplemental oxygen at this treatment (3) Pneumonia: Qualifiers: Laterality: left Lung location: lower lobe of lung Pneumonia type: due to unspecified organism Qualified Code(s): J18.9 - Pneumonia, unspecified organism Code(s): J18.9 - Pneumonia, unspecified organism Status: Acute Assessment and Plan: * suspected etiology of #2 * noted symptoms of shortness of breath, productive cough, and subjective fevers * resident of nursing facility and recent hospitalization -- hospital/facility acquired infection/pneumonia(?) * follow culture data * on antibiotics * follow clinical status (4) Anemia: Code(s): D64.9 - Anemia, unspecified Status: Chronic Assessment and Plan: * due to ESRD and worsened by #2 * Epogen with HD * follow trend of H/H (5) Diabetes mellitus with multiple complications: Code(s): E11.8 - Type 2 diabetes mellitus with unspecified complications Status: Chronic Assessment and Plan: * follow Accu-Cheks * glycemic control per hospitalists Will continue to follow. Subjective Date/time seen: 03/06/24 09:45 Interval history: Follow-up for end stage renal disease on hemodialysis. Tolerating dialysis treatment at the time of my visit (seen on HD at 9:35AM); breathing/respiratory status seems stable if not improved -- weaned off supple mental oxygen with stable oxygen saturations currently; no apparent distress noted; no issues/events overnight or earlier this morning. Exam Narrative: General: WD/WN male in NAD Heart: normal S1 and S2; no rub Lungs: coarse breath sounds; decreased at bases Abdomen: soft, nontender, nondistended, positive bowel sounds; s/p bilateral BKAs Extremities: no cyanosis or clubbing; no edema Skin: no rash or nodules Objective Data Vital Signs Vital Signs: Vital Signs Temp Pulse Resp BP Pulse Ox O2 Del Method FiO2 03/06/24 09:45 64 128/58 L 03/06/24 08:50 66 139/65 03/06/24 08:35 98.6 F 68 24 H 134/59 L 90 03/06/24 07:58 98.7 F 66 18 147/66 H 95 03/06/24 07:49 62 18 03/06/24 07:38 63 18 03/06/24 07:38 93 Room Air 21 03/06/24 02:56 61 16 03/06/24 04:00 62 03/06/24 00:00 61 03/06/24 02:49 63 16 03/05/24 23:53 98.5 F 62 16 141/55 H 93 03/05/24 20:00 60 03/05/24 20:15 60 16 03/05/24 20:09 60 16 03/05/24 20:09 94 Room Air 03/05/24 20:04 97.4 F L 60 18 114/45 L 95 03/05/24 18:00 64 03/05/24 16:00 63 03/05/24 15:54 98.2 F 61 12 118/43 L 93 Intake/Output Intake/Output: Intake & Output 03/03/24 03/04/24 03/05/24 03/06/24 23:59 23:59 23:59 23:59 Intake Total 1094.2 510 1930 320 Output Total 2000 0 2500 Balance 1094.2 -1490 1930 -2180 Meds/Results Medications: Active Medications Generic Name Dose Route Start Last Admin Trade Name Freq PRN Reason Stop Dose Admin Acetaminophen 650 mg 03/03/24 03:47 Acetaminophen 325 Mg Tablet PO Q6H PRN Mild Pain (1-3) or Fever Albuterol/Ipratropium 3 ml 03/03/24 14:00 03/06/24 13:11 Ipratropium 0.5 Mg/Albuterol Sulfate 2.5 Mg Ampul.Neb 3 Ml INHALATION 3 ml Q6HRT [facility] Administration Aspirin 81 mg 03/04/24 08:00 03/06/24 07:50 Aspirin 81 Mg Chewable Tablet PO 81 mg DAILY@0800 [facility] Administration Atorvastatin Calcium 40 mg 03/03/24 21:00 03/05/24 20:40 Atorvastatin 40 Mg Tablet PO 40 mg HS [facility] Administration Cefuroxime Axetil 250 mg 03/06/24 17:00 Cefuroxime Axetil 250 Mg Tablet PO DAILY@1700 [facility] Dextrose 12.5 gm 03/03/24 13:39 Dextrose 50% 25 Gm/50 Ml Syringe IV PUSH PRN PRN Hypoglycemia Protocol Ferrous Sulfate 325 mg 03/03/24 09:05 03/06/24 07:50 Ferrous Sulfate [address] PO 325 mg DAILY [facility] Administration Fish Oil 1 gm 03/03/24 09:00 03/06/24 07:53 [place] 3 Polyunsat Fatty Acids 1 Gm Cap PO 1 gm DAILY [facility] Administration Folic Acid 1 mg 03/03/24 09:00 03/06/24 07:51 Folic Acid 1 Mg Tablet PO 1 mg DAILY [facility] Administration Gabapentin 200 mg 03/03/24 21:00 03/05/24 20:40 Gabapentin 100 Mg Capsule PO 200 mg HS [facility] Administration Glucagon 1 mg 03/03/24 13:39 Glucagon For Inj 1 Mg Vial IM PRN PRN Hypoglycemia Protocol Glucose 15 gm 03/03/24 13:39 Glucose Oral Gel 15 Gm Of Glucse In 37.5 Gm Tube PO PRN PRN Hypoglycemia Protocol Guaifenesin 600 mg 03/03/24 21:00 03/06/24 07:51 Guaifenesin 12 Hr 600 Mg Tabcr PO 600 mg Q12HR [facility] Administration Heparin Sodium (Porcine) 5,000 units 03/03/24 09:00 03/06/24 07:53 Heparin Sodium 5,000 Units/Ml Vial SUB-Q 5,000 units Q12HR [facility] Administration Dextrose 1,000 mls @ 100 mls/hr 03/03/24 13:39 Dextrose 5% 1,000 Ml IVPB PRN PRN Hypoglycemia Protocol Albumin Human 50 mls @ 999 mls/hr 03/04/24 06:11 Albutein IVPB 04/03/24 06:10 Q10M PRN HYPOTENSION Methocarbamol 500 mg 03/03/24 09:00 03/06/24 13:30 Methocarbamol 500 Mg Tablet PO 500 mg TID [facility] Administration Miconazole Nitrate 1 applic 03/04/24 09:00 03/06/24 07:55 Miconazole 2% Antifungal Ointment 56 Gm TOPICAL 1 applic Q12HR [facility] Administration Midodrine 10 mg 03/03/24 14:00 03/06/24 13:30 Midodrine Hcl 10 Mg Tablet PO 10 mg DAILY@0800,1400 [facility] Administration Mirtazapine 15 mg 03/03/24 21:00 03/05/24 20:40 Mirtazapine 15 Mg Tablet PO 15 mg HS [facility] Administration Multivitamins Therapeutic 1 tablet 03/03/24 09:00 03/06/24 07:54 Multivitamins Therapeutic Tab (*Bkc) PO 1 tablet DAILY [facility] Administration Mupirocin 1 applic 03/03/24 21:00 03/06/24 07:54 Mupirocin 2% Oint 22 Gm Tube EACH NARE 03/07/24 21:00 1 applic Q12HR [facility] Administration Oxycodone HCl 5 mg 03/03/24 08:55 Oxycodone Hcl (*Crx) 5 Mg Tab Ir PO Q4H PRN Pain (Scale Score 7-10) Senna/Docusate Sodium 1 tab 03/03/24 08:55 Senna/Docusate Sodium Tablet PO BID PRN Constipation Sertraline HCl 25 mg 03/03/24 21:00 03/05/24 20:40 Sertraline Hcl 25 Mg Tablet PO 25 mg HS [facility] Administration Sevelamer Carbonate 800 mg 03/03/24 09:00 03/06/24 13:30 Sevelamer Carbonate 800 Mg Tablet PO 800 mg TID [facility] Administration Sitagliptin Phosphate 100 mg 03/03/24 09:15 03/06/24 07:50 Sitagliptin Phosphate 100 Mg Tablet PO 100 mg QAM [facility] Administration Tamsulosin HCl 0.4 mg 03/03/24 09:00 03/06/24 07:51 Tamsulosin Hcl 0.4 Mg Capsule PO 0.4 mg DAILY [facility] Administration Tramadol HCl 50 mg 03/03/24 08:55 Tramadol Hcl (*Crx) 50 Mg Tablet PO Q4H PRN Pain (Scale Score 4-6) Radiology Results: ITS Impressions Chest X-Ray 03/02/24 22:39 IMPRESSION: Mild interstitial edema, similar to the prior examination. Possible small bilateral effusions. Chest CT 03/02/24 23:48 IMPRESSION: Mild interstitial edema. Mediastinal lymphadenopathy. Labs Labs: Laboratory Tests 03/06/24 04:15 03/06/24 04:15 Calcium 8.1 L Phosphorus 3.0 Magnesium 2.1 Total Bilirubin 1.0 AST 21 ALT 10 Alkaline Phosphatase 152 H Total Protein 7.0 Albumin 3.3 L Random Vancomycin 24.9 H Microbiology 03/03/24 01:45 Sputum Sputum Culture - Final
--- NOTE | 2024-03-06 09:56 | P.PNIM_ITS ---
Progress Note: A&P Assessment and Plan (1) Acute hypoxemic respiratory failure: Code(s): J96.01 - Acute respiratory failure with hypoxia Status: Acute Assessment and Plan: Patient with acute shortness of breath, productive sputum, and subjective chills with new oxygen requirement of 2 L. he was found to be sating 87% on room air on arrival to the emergency room. He does have expiratory wheeze on exam * White count 3.6 * T-max 100.4? * Patient was started on cefepime and vancomycin given he lives in a long-term care facility and MRSA of the nares was positive. * Placed on isolation for MRSA. Mupirocin to nares. * Blood cultures and sputum culture pending * Incentive spirometry * Guaifenesin b.i.d. * Scheduled DuoNebs * Last hemodialysis was yesterday and approximately 1 L removed. He does not appear fluid overloaded. Nephrology consulted. * Echocardiogram was ordered * 03/04 noted o2 on his forehead- sats ok- ok to stop oxygen and monitor saturation - IS - contineu antibiotics 03/05- on 1 l per nc- wean oxygen if able (2) Pneumonia: Qualifiers: Laterality: left Lung location: lower lobe of lung Pneumonia type: due to unspecified organism Qualified Code(s): J18.9 - Pneumonia, unspecified organism Code(s): J18.9 - Pneumonia, unspecified organism Status: Acute Assessment and Plan: -shortness of breath, productive cough, and subjective fevers - resident of nursing facility and recent hospitalization * pending culture data * on antibiotics-continue * clinically improving slowly (3) End-stage renal disease on hemodialysis: Code(s): N18.6 - End stage renal disease; Z99.2 - Dependence on renal dialysis Status: Acute Assessment and Plan: nephrology following Plan h/o t2dm- accucheck ac/hs, SS, hypoglycemia protocol Feeding:renal diet Analgesia:tylenol Thromboembolic prophylaxis: heparin Glycemic control: ac/hs accu checks, hypoglycemia protocol, SSI low dose Bowel regimen: N/A at this time. Had loose stool yesterday Lines: PIV Antibiotics: Cefepime and vanco Disposition: Return to [facility] Subjective Date/time seen: 03/06/24 09:56 Interval history: nterval history: This is a 58-year-old male with a past medical history significant for end-stage renal disease on hemodialysis Saturday, anemia, systolic and diastolic congestive heart failure, coronary artery disease, hypertension, hyperlipidemia, and type 2 diabetes who presented to the emergency room from his [place] [facility] facility with complaints of shortness of breath. History is provided by the patient and supplemental chart review. Patient received hemodialysis yesterday as previously scheduled and then developed sudden shortness of breath, productive cough with clear to yellow sputum, and subjective fever and chills. He is unsure of the exact amount but but states they removed 1 L something at dialysis. Also reports some mild headache and nausea this morning. He did experienced 1 episode of loose stool yesterday. He denies dizziness, chest pain, abdominal pain, or constipation. On exam he is drowsy but does open his eyes to verbal stimuli and answers questions appropriately. He appears as though he does not feel well. He is wearing an event monitor that he says was ordered by his entry level finance. In the ER labs were significant for white blood cell count 3.6, hemoglobin 10.2, sodium 135, potassium 4, BUN 28, creatinine 3.50, glucose 164, and troponin 0.042. Chest x-ray showed mild interstitial edema and small pleural effusions. CT chest shows mediastinal lymphadenopathy. He received 1 gram of Tylenol, Rocephin, and Azithromycin for possible pneumonia. Antibiotics were escalated to Cefepime given he lives in a [place] [facility] care facility. MRSA of the nares was positive and therefore vancomycin was added. Blood and urine cultures were drawn and are pending. Nephrology was consulted for hemodialysis. He is admitted in this setting for further treatment and evaluation. 03/04- pt is seen and examined today around 1400 (pt was getting dialysis earlier). pt is alert, oriented, pleasant. reports no issues today. will move out if IMU today. 03/05- down to 1 l per NC- wean off if able. Nephrology is following for dialysis needs. anticipate discharge back to [facility] will continue antibiotics for now. Pending transfer out of IMU. 03/06- seen and examined at the bedside. Review of Systems Review of Systems: All systems reviewed & are unremarkable except as noted in HPI and below Exam Narrative: General: appears stated age, pleasant HEENT: normocephalic, atraumatic. Mucous membranes moist. EOMI, PERRLA, bilateral sclera anicteric, no conjunctival injection. Neck supple without JVD, lymphadenopathy, or bruit. Respiratory: Lung sounds are coarse with rhonchi and expiratory wheeze bilaterally. On 2 L nasal cannula Cardiovascular: Regular rate and rhythm, normal S1-S2 upon auscultation. No murmurs, rubs, or clicks. PMI is nondisplaced, capillary refill less than 3 second. Telemetry is sinus rhythm. Abdomen: Soft, round, no pulsatile masses, nondistended and mildly tender. No rebound, no guarding. No CVA tenderness, no hepatosplenomegaly. Bowel sounds present to all four quadrants. No high pitch or tinkling sounds, resonant to percussion. Extremities: No cyanosis, clubbing, or edema present. Pulses are palpable. Active ROM. Bilateral BKA. Neuro: Drowsy and orientated x 4. PERRLA. Cranial nerves 2-12 intact without focal deficit. Skin: Warm, dry, and intact, without rash, erythema, or lesion. Lines: PIV, LISA graft with +bruit and +thrill Incisions: NA Psych: cooperative, normal speech, normal affect, no hallucinations, no dysarthria Const: General: comfortable Objective Data Vital Signs Vital Signs: Vital Signs - 24 hr 03/05/24 10:00 03/05/24 12:00 03/05/24 13:37 Temperature Pulse Rate 65 67 61 Respiratory Rate 20 Blood Pressure Pulse Oximetry Oxygen Delivery Fraction of Inspired Oxygen 03/05/24 13:46 03/05/24 14:00 03/05/24 15:54 Temperature 98.2 F Pulse Rate 60 64 61 Respiratory Rate 20 12 Blood Pressure 118/43 L Pulse Oximetry 93 Oxygen Delivery Fraction of Inspired Oxygen 03/05/24 16:00 03/05/24 18:00 03/05/24 20:04 Temperature 97.4 F L Pulse Rate 63 64 60 Respiratory Rate 18 Blood Pressure 114/45 L Pulse Oximetry 95 Oxygen Delivery Fraction of Inspired Oxygen 03/05/24 20:09 03/05/24 20:09 03/05/24 20:15 Temperature Pulse Rate 60 60 Respiratory Rate 16 16 Blood Pressure Pulse Oximetry 94 Oxygen Delivery Room Air Fraction of Inspired Oxygen 03/05/24 20:00 03/05/24 23:53 03/06/24 02:49 Temperature 98.5 F Pulse Rate 60 62 63 Respiratory Rate 16 16 Blood Pressure 141/55 H Pulse Oximetry 93 Oxygen Delivery Fraction of Inspired Oxygen 03/06/24 00:00 03/06/24 04:00 03/06/24 02:56 Temperature Pulse Rate 61 62 61 Respiratory Rate 16 Blood Pressure Pulse Oximetry Oxygen Delivery Fraction of Inspired Oxygen 03/06/24 07:38 03/06/24 07:38 03/06/24 07:49 Temperature Pulse Rate 63 62 Respiratory Rate 18 18 Blood Pressure Pulse Oximetry 93 Oxygen Delivery Room Air Fraction of Inspired Oxygen 03/06/24 07:58 03/06/24 08:35 03/06/24 08:50 Temperature 98.7 F 98.6 F Pulse Rate 66 68 66 Respiratory Rate 18 24 H Blood Pressure 147/66 H 134/59 L 139/65 Pulse Oximetry 95 90 Oxygen Delivery Fraction of Inspired Oxygen 03/06/24 09:00 03/06/24 09:15 03/06/24 09:30 Temperature Pulse Rate 65 65 65 Respiratory Rate Blood Pressure 136/59 L 131/60 136/59 L Pulse Oximetry Oxygen Delivery Fraction of Inspired Oxygen Intake/Output Intake/Output: Intake & Output 03/03/24 03/04/24 03/05/24 03/06/24 23:59 23:59 23:59 23:59 Intake Total 1094.2 510 1930 50 Output Total 2000 0 0 Balance 1094.2 -1490 1930 50 Meds/Results Medications: Active Medications Generic Name Dose Route Start Last Admin Trade Name Freq PRN Reason Stop Dose Admin Acetaminophen 650 mg 03/03/24 03:47 Acetaminophen 325 Mg Tablet PO Q6H PRN Mild Pain (1-3) or Fever Albuterol/Ipratropium 3 ml 03/03/24 14:00 03/06/24 07:38 Ipratropium 0.5 Mg/Albuterol Sulfate 2.5 Mg Ampul.Neb 3 Ml INHALATION 3 ml Q6HRT [facility] Administration Aspirin 81 mg 03/04/24 08:00 03/06/24 07:50 Aspirin 81 Mg Chewable Tablet PO 81 mg DAILY@0800 [facility] Administration Atorvastatin Calcium 40 mg 03/03/24 21:00 03/05/24 20:40 Atorvastatin 40 Mg Tablet PO 40 mg HS [facility] Administration Dextrose 12.5 gm 03/03/24 13:39 Dextrose 50% 25 Gm/50 Ml Syringe IV PUSH PRN PRN Hypoglycemia Protocol Ferrous Sulfate 325 mg 03/03/24 09:05 03/06/24 07:50 Ferrous Sulfate [address] PO 325 mg DAILY [facility] Administration Fish Oil 1 gm 03/03/24 09:00 03/06/24 07:53 [place] 3 Polyunsat Fatty Acids 1 Gm Cap PO 1 gm DAILY [facility] Administration Folic Acid 1 mg 03/03/24 09:00 03/06/24 07:51 Folic Acid 1 Mg Tablet PO 1 mg DAILY [facility] Administration Gabapentin 200 mg 03/03/24 21:00 03/05/24 20:40 Gabapentin 100 Mg Capsule PO 200 mg HS [facility] Administration Glucagon 1 mg 03/03/24 13:39 Glucagon For Inj 1 Mg Vial IM PRN PRN Hypoglycemia Protocol Glucose 15 gm 03/03/24 13:39 Glucose Oral Gel 15 Gm Of Glucse In 37.5 Gm Tube PO PRN PRN Hypoglycemia Protocol Guaifenesin 600 mg 03/03/24 21:00 03/06/24 07:51 Guaifenesin 12 Hr 600 Mg Tabcr PO 600 mg Q12HR [facility] Administration Heparin Sodium (Porcine) 5,000 units 03/03/24 09:00 03/06/24 07:53 Heparin Sodium 5,000 Units/Ml Vial SUB-Q 5,000 units Q12HR [facility] Administration Cefepime HCl 1 gm in 50 mls @ 100 mls/hr 03/04/24 06:00 03/06/24 05:50 Maxipime 1 Gm/Ns 50 Ml IVPB Infused Q24H [facility] Infusion Dextrose 1,000 mls @ 100 mls/hr 03/03/24 13:39 Dextrose 5% 1,000 Ml IVPB PRN PRN Hypoglycemia Protocol Albumin Human 50 mls @ 999 mls/hr 03/04/24 06:11 Albutein IVPB 04/03/24 06:10 Q10M PRN HYPOTENSION Vancomycin HCl 500 mg in 100 mls @ 100 mls/hr 03/06/24 18:00 Vancomycin 500 Mg/Ns 100 Ml IVPB 03/06/24 18:59 ONCE ONE Methocarbamol 500 mg 03/03/24 09:00 03/06/24 07:51 Methocarbamol 500 Mg Tablet PO 500 mg TID [facility] Administration Miconazole Nitrate 1 applic 03/04/24 09:00 03/06/24 07:55 Miconazole 2% Antifungal Ointment 56 Gm TOPICAL 1 applic Q12HR [facility] Administration Midodrine 10 mg 03/03/24 14:00 03/06/24 07:50 Midodrine Hcl 10 Mg Tablet PO 10 mg DAILY@0800,1400 [facility] Administration Mirtazapine 15 mg 03/03/24 21:00 03/05/24 20:40 Mirtazapine 15 Mg Tablet PO 15 mg HS [facility] Administration Multivitamins Therapeutic 1 tablet 03/03/24 09:00 03/06/24 07:54 Multivitamins Therapeutic Tab (*Bkc) PO 1 tablet DAILY [facility] Administration Mupirocin 1 applic 03/03/24 21:00 03/06/24 07:54 Mupirocin 2% Oint 22 Gm Tube EACH NARE 03/07/24 21:00 1 applic Q12HR [facility] Administration Oxycodone HCl 5 mg 03/03/24 08:55 Oxycodone Hcl (*Crx) 5 Mg Tab Ir PO Q4H PRN Pain (Scale Score 7-10) Senna/Docusate Sodium 1 tab 03/03/24 08:55 Senna/Docusate Sodium Tablet PO BID PRN Constipation Sertraline HCl 25 mg 03/03/24 21:00 03/05/24 20:40 Sertraline Hcl 25 Mg Tablet PO 25 mg HS [facility] Administration Sevelamer Carbonate 800 mg 03/03/24 09:00 03/06/24 07:51 Sevelamer Carbonate 800 Mg Tablet PO 800 mg TID [facility] Administration Sitagliptin Phosphate 100 mg 03/03/24 09:15 03/06/24 07:50 Sitagliptin Phosphate 100 Mg Tablet PO 100 mg QAM [facility] Administration Tamsulosin HCl 0.4 mg 03/03/24 09:00 03/06/24 07:51 Tamsulosin Hcl 0.4 Mg Capsule PO 0.4 mg DAILY [facility] Administration Tramadol HCl 50 mg 03/03/24 08:55 Tramadol Hcl (*Crx) 50 Mg Tablet PO Q4H PRN Pain (Scale Score 4-6) Vancomycin HCl 1 each 03/04/24 08:26 Vancomycin For Hemodialysis IVPB PRN PRN Vancomycin Protocol Radiology Results: ITS Impressions Chest X-Ray 03/02/24 22:39 IMPRESSION: Mild interstitial edema, similar to the prior examination. Possible small bilateral effusions. Chest CT 03/02/24 23:48 IMPRESSION: Mild interstitial edema. Mediastinal lymphadenopathy. Labs Labs: Laboratory Results - last 24 hr 03/05/24 03/05/24 03/06/24 11:50 20:06 04:15 WBC 2.8 L RBC 3.12 L Hgb 9.7 L Hct 31.3 L MCV 100.3 H MCH 31.1 MCHC 31.0 L RDW 15.4 H Plt Count 84 L MPV 12.7 H Immature Gran % (Auto) 0.7 H Neut % (Auto) 58.3 Lymph % (Auto) 22.3 Mcintosh % (Auto) 11.2 H Eos % (Auto) 6.8 H Baso % (Auto) 0.7 Lymph # (Auto) 0.62 L Mcintosh # (Auto) 0.3 Eos # (Auto) 0.2 Baso # (Auto) 0.0 Abs Immat Gran (auto) 0.02 Absolute Neuts (auto) 1.6 Absolute Nucleated RBC 0.000 Nucleated RBC % 0.0 Platelet Estimate Decreased % Immature Plt Fraction 6.3 Hypochromasia 1+ Poikilocytosis 1+ Anisocytosis 1+ Schistocytes Rare Sodium 141 Potassium 4.0 Chloride 107 Carbon Dioxide 27 Anion Gap 7 BUN 35 H D Creatinine 5.10 H Estim Creat Clear Calc 13 Estimated GFR 12 L Glucose 119 H POC Capillary Glucose 148 H 162 H Calcium 8.1 L Phosphorus 3.0 Magnesium 2.1 Total Bilirubin 1.0 AST 21 ALT 10 Alkaline Phosphatase 152 H Total Protein 7.0 Albumin 3.3 L Random Vancomycin 24.9 H 03/06/24 07:55 WBC RBC Hgb Hct MCV MCH MCHC RDW Plt Count MPV Immature Gran % (Auto) Neut % (Auto) Lymph % (Auto) Mcintosh % (Auto) Eos % (Auto) Baso % (Auto) Lymph # (Auto) Mcintosh # (Auto) Eos # (Auto) Baso # (Auto) Abs Immat Gran (auto) Absolute Neuts (auto) Absolute Nucleated RBC Nucleated RBC % Platelet Estimate % Immature Plt Fraction Hypochromasia Poikilocytosis Anisocytosis Schistocytes Sodium Potassium Chloride Carbon Dioxide Anion Gap BUN Creatinine Estim Creat Clear Calc Estimated GFR Glucose POC Capillary Glucose 137 H Calcium Phosphorus Magnesium Total Bilirubin AST ALT Alkaline Phosphatase Total Protein Albumin Random Vancomycin Quality VTE Prophylaxis VTE prophylaxis: pharmacologic ordered
[2024-03-06] MEDS: EPOETIN ALFA-EPBX 10,000 UNITS/ML VIAL 10000 UNITS IV PUSH (10:50)
--- NOTE | 2024-03-06 13:10 | PC.NURSE ---
Patient back from dialysis
[2024-03-06 13:27] LABS: Glucose Point of Care 83 mg/dl (65-105)
--- NOTE | 2024-03-06 14:08 | P.DS_ITS ---
DS: Admitting Diagnosis Discharge Date 03/06 Admitting Diagnosis sob DS: Discharge Diagnosis Discharge Diagnosis (1) Acute hypoxemic respiratory failure: Code(s): J96.01 - Acute respiratory failure with hypoxia Status: Acute Assessment and Plan: Patient with acute shortness of breath, productive sputum, and subjective chills with new oxygen requirement of 2 L. he was found to be sating 87% on room air on arrival to the emergency room. He does have expiratory wheeze on exam * White count 3.6 * T-max 100.4? * Patient was started on cefepime and vancomycin given he lives in a long-term care facility and MRSA of the nares was positive. * Placed on isolation for MRSA. Mupirocin to nares. * Blood cultures and sputum culture pending * Incentive spirometry * Guaifenesin b.i.d. * Scheduled DuoNebs * Last hemodialysis was yesterday and approximately 1 L removed. He does not appear fluid overloaded. Nephrology consulted. * Echocardiogram was ordered * 03/04 noted o2 on his forehead- sats ok- ok to stop oxygen and monitor saturation - IS - contineu antibiotics 03/05- on 1 l per nc- wean oxygen if able (2) Pneumonia: Qualifiers: Laterality: left Lung location: lower lobe of lung Pneumonia type: due to unspecified organism Qualified Code(s): J18.9 - Pneumonia, unspecified organism Code(s): J18.9 - Pneumonia, unspecified organism Status: Acute Assessment and Plan: -shortness of breath, productive cough, and subjective fevers - resident of nursing facility and recent hospitalization * pending culture data * on antibiotics-continue * clinically improving slowly (3) End-stage renal disease on hemodialysis: Code(s): N18.6 - End stage renal disease; Z99.2 - Dependence on renal dialysis Status: Acute Assessment and Plan: nephrology following Plan final dx: pneumonia h/o t2dm- accucheck ac/hs, SS, hypoglycemia protocol Feeding:renal diet Analgesia:tylenol Thromboembolic prophylaxis: heparin Glycemic control: ac/hs accu checks, hypoglycemia protocol, SSI low dose Bowel regimen: N/A at this time. Had loose stool yesterday Lines: PIV Antibiotics: Cefepime and vanco Disposition: Return to SNF DS: Summary Hospital Course Hospital Course: Interval history: This is a 58-year-old male with a past medical history significant for end-stage renal disease on hemodialysis Saturday, anemia, systolic and diastolic congestive heart failure, coronary artery disease, hypertension, hyperlipidemia, and type 2 diabetes who presented to the emergency room from his detention with complaints of shortness of breath. History is provided by the patient and supplemental chart review. Patient received hemodialysis yesterday as previously scheduled and then developed sudden shortness of breath, productive cough with clear to yellow sputum, and subjective fever and chills. He is unsure of the exact amount but but states they removed 1 L something at dialysis. Also reports some mild headache and nausea this morning. He did experienced 1 episode of loose stool yesterday. He denies dizziness, chest pain, abdominal pain, or constipation. On exam he is drowsy but does open his eyes to verbal stimuli and answers questions appropriately. He appears as though he does not feel well. He is wearing an event monitor that he says was ordered by his bench loom weaver. In the ER labs were significant for white blood cell count 3.6, hemoglobin 10.2, sodium 135, potassium 4, BUN 28, creatinine 3.50, glucose 164, and troponin 0.042. Chest x-ray showed mild interstitial edema and small pleural effusions. CT chest shows mediastinal lymphadenopathy. He received 1 gram of Tylenol, Rocephin, and Azithromycin for possible pneumonia. Antibiotics were escalated to Cefepime given he lives in a detention. MRSA of the nares was positive and therefore vancomycin was added. Blood and urine cultures were drawn and are pending. Nephrology was consulted for hemodialysis. He is admitted in this [facility] for further treatment and evaluation. 03/04- pt is seen and examined today around 1400 (pt was getting dialysis earlier). pt is alert, oriented, pleasant. reports no issues today. will move out if IMU today. 03/05- down to 1 l per NC- wean off if able. Nephrology is following for dialysis needs. anticipate discharge back to [facility] will continue antibiotics for now. Pending transfer out of IMU. Status at Discharge Functional status at discharge: wheelchair bound Overall status at discharge: patient is back to baseline Time Spent with Patient Time attestation: Total time spent providing and/or coordinating discharge services: Time spent: Less than 30 minutes Exam Narrative: General: appears stated age, pleasant HEENT: normocephalic, atraumatic. Mucous membranes moist. EOMI, PERRLA, bilateral sclera anicteric, no conjunctival injection. Neck supple without JVD, lymphadenopathy, or bruit. Respiratory: Lung sounds are coarse with rhonchi and expiratory wheeze bilaterally. Off oxygen since yesterday 03/05 0800 Cardiovascular: Regular rate and rhythm, normal S1-S2 upon auscultation. No murmurs, rubs, or clicks. PMI is nondisplaced, capillary refill less than 3 second. Telemetry is sinus rhythm. Abdomen: Soft, round, no pulsatile masses, nondistended and mildly tender. No rebound, no guarding. No CVA tenderness, no hepatosplenomegaly. Bowel sounds present to all four quadrants. No high pitch or tinkling sounds, resonant to percussion. Extremities: No cyanosis, clubbing, or edema present. Pulses are palpable. Active ROM. Bilateral BKA. Neuro: Drowsy and orientated x 4. PERRLA. Cranial nerves 2-12 intact without focal deficit. Skin: Warm, dry, and intact, without rash, erythema, or lesion. Lines: PIV, LISA graft with +bruit and +thrill Incisions: NA Psych: cooperative, normal speech, normal affect, no hallucinations, no dysarthria Const: General: comfortable DS: Data Data Completed and Pending Completed studies during hospitalization: chest xray, chest ct Pending studies at discharge: none Labs on day of discharge: Labs from last 24 hours 03/06/24 03/06/24 03/06/24 13:23 07:55 04:15 WBC 2.8 L RBC 3.12 L Hgb 9.7 L Hct 31.3 L MCV 100.3 H MCH 31.1 MCHC 31.0 L RDW 15.4 H Plt Count 84 L MPV 12.7 H Immature Gran % (Auto) 0.7 H Neut % (Auto) 58.3 Lymph % (Auto) 22.3 [place] % (Auto) 11.2 H Eos % (Auto) 6.8 H Baso % (Auto) 0.7 Lymph # (Auto) 0.62 L [place] # (Auto) 0.3 Eos # (Auto) 0.2 Baso # (Auto) 0.0 Abs Immat Gran (auto) 0.02 Absolute Neuts (auto) 1.6 Absolute Nucleated RBC 0.000 Nucleated RBC % 0.0 Platelet Estimate Decreased % Immature Plt Fraction 6.3 Hypochromasia 1+ Poikilocytosis 1+ Anisocytosis 1+ Schistocytes Rare Sodium 141 Potassium 4.0 Chloride 107 Carbon Dioxide 27 Anion Gap 7 BUN 35 H D Creatinine 5.10 H Estim Creat Clear Calc 13 Estimated GFR 12 L Glucose 119 H POC Capillary Glucose 83 137 H Calcium 8.1 L Phosphorus 3.0 Magnesium 2.1 Total Bilirubin 1.0 AST 21 ALT 10 Alkaline Phosphatase 152 H Total Protein 7.0 Albumin 3.3 L Random Vancomycin 24.9 H 03/05/24 20:06 WBC RBC Hgb Hct MCV MCH MCHC RDW Plt Count MPV Immature Gran % (Auto) Neut % (Auto) Lymph % (Auto) [place] % (Auto) Eos % (Auto) Baso % (Auto) Lymph # (Auto) [place] # (Auto) Eos # (Auto) Baso # (Auto) Abs Immat Gran (auto) Absolute Neuts (auto) Absolute Nucleated RBC Nucleated RBC % Platelet Estimate % Immature Plt Fraction Hypochromasia Poikilocytosis Anisocytosis Schistocytes Sodium Potassium Chloride Carbon Dioxide Anion Gap BUN Creatinine Estim Creat Clear Calc Estimated GFR Glucose POC Capillary Glucose 162 H Calcium Phosphorus Magnesium Total Bilirubin AST ALT Alkaline Phosphatase Total Protein Albumin Random Vancomycin Preliminary micro results at discharge 03/02/24 22:29 Blood Culture - Preliminary Blood 03/02/24 22:43 Blood Culture - Preliminary Blood Discharge Plan Discharge Consulting providers: [place] Discharging Clinician: Gricel Bennett Patient Disposition: SNF Activity: december shower Diet: as tolerated Discharge Instructions: please finish your antibiotics- 4 more days. Your pain meds script was reordered per DOREEN Hull - please f/u with PCP next week if more medications is needed Patient Instructions: Pneumonia (GEN) Stand Alone Forms: General Discharge Information, Prison Discharge Discharge Medications: New cefuroxime axetil 250 mg Tablet 250 mg PO DAILY@1700 Qty: 4 0RF Continued multivitamin Tablet 1 tablet PO DAILY ferrous sulfate 325 mg (65 mg iron) Tablet 325 mg PO DAILY nitroglycerin 0.4 mg Tablet, Sublingual 0.4 mg SUBLINGUAL Q5-15M PRN (Reason: Chest Pain) Rx Instructions: 3 dose max omega-3 fatty acids-fish oil 360-1,200 mg Capsule 1 cap PO DAILY atorvastatin [Lipitor] 40 mg Tablet 40 mg PO HS tamsulosin [Flomax] 0.4 mg Capsule 0.4 mg PO DAILY Rx Instructions: takes with evening meal folic acid 1 mg Tablet 1 mg PO DAILY gabapentin 100 mg Tablet 200 mg PO HS sevelamer carbonate 800 mg Tablet 800 mg PO TID mirtazapine 15 mg tablet 15 mg PO HS sertraline 50 mg tablet 25 mg PO HS Tradjenta 5 mg tablet 5 mg PO DAILY meclizine 25 mg Tablet 25 mg PO Q8H PRN (Reason: Dizziness) omeprazole 20 mg Capsule,Delayed Release(Dr/Ec) 20 mg PO DAILY aspirin 81 mg Tablet 81 mg PO DAILY Lactobacillus acidophilus Capsule 100 mmu cells PO TID midodrine 10 mg Tablet 10 mg PO BID Rx Instructions: takes at 0800 and 1400 methocarbamol 500 mg tablet 500 mg PO TID acetaminophen [Tylenol] 325 mg Tablet 650 mg PO Q6H PRN (Reason: Pain (Scale Score 1-3)) sennosides-docusate sodium [Senna Plus] 8.6-50 mg Tablet 1 tablet PO BID PRN (Reason: Constipation) naloxone 4 mg/actuation spray,non-aerosol 1 spray INTRANASAL Q3M PRN (Reason: Opioid Overdose) guaifenesin 100 mg/5 mL Syrup 600 mg PO Q8H PRN (Reason: Cough) Eucerin Cream 1 applic TOPICAL QPM menthol-zinc oxide [Calmoseptine] 0.44-20.6 % Ointment 1 applic TOPICAL BID diphenoxylate-atropine [Lomotil] 2.5-0.025 mg Tablet 2 tablet PO TID PRN (Reason: Diarrhea) Qty: 15 0RF Rx Instructions: do not exceed 10 days consecutively tramadol 50 mg tablet 50 mg PO Q4H PRN (Reason: Pain (Scale Score 4-6)) Qty: 15 0RF oxycodone 5 mg Tablet 5 mg PO Q4H PRN (Reason: Pain (Scale Score 7-10)) Qty: 15 0RF Date of admission: 03/03/24 11:08 Primary Care Provider: Dell*Theodore Moore Admitting Provider: Judy Malik Attending physician on admission: Lana Tidwell Condition: Improved Quality VTE Prophylaxis VTE prophylaxis: pharmacologic ordered Hospitalist MIPS Heart Failure (Exclusion) Patient has history of Heart Transplant or Left Ventricular Assistive Device?: No IF YES, STOP HERE Heart Failure (Qualifier) Patient has current or prior documentation of LVEF less than or equal to 40%, or mod/servere depressed LVSF?: Yes IF NO, STOP HERE If Yes, Heart Failure (Qualifier) Patient was prescribed or already taking an Angiotensin-Converting Enzyme (KATYA) Inhibitor, or Antiotensin Receptor Yris (ARB): No Patient was prescribed or already taking bisoprolol, carvedilol, or sustained release metoprolol succinate: No If Medications not prescribed/taking Reason patient not prescribed/taking KATYA or ARB: Patient reasons: pt declined or other pt reason Reason patient not prescribed/taking bisoprolol, carvedilol, or sustained realease metoprolol succinate: Patient reasons: pt declined or other pt reason
== END 2024-03-06 15:05 | DRG 189 ==
LOC: ANHED 23:02 → ANH3MEDSUR 03-03 02:49 → ANHIMU 03-03 03:30
PROVIDERS: Emergency Medicine; Internal Medicine Nephrology; Nurse Practitioner Acute Care; Student in an Organized Health Care Education/Training Program; Admitting Provider General Practice; Emergency Provider Physician Assistant; PCP Internal Medicine; Visit Provider Nurse Practitioner
DX: J96.01 Acute respiratory failure with hypoxia (principal); N18.6 End stage renal disease; I13.2 Hypertensive heart and chronic kidney disease with heart failure and with stage 5 chronic kidney disease, or end stage renal disease; I50.42 Chronic combined systolic (congestive) and diastolic (congestive) heart failure; Z99.2 Dependence on renal dialysis; D63.1 Anemia in chronic kidney disease; E78.5 Hyperlipidemia, unspecified; E11.22 Type 2 diabetes mellitus with diabetic chronic kidney disease; E11.40 Type 2 diabetes mellitus with diabetic neuropathy, unspecified; G47.33 Obstructive sleep apnea (adult) (pediatric); I48.0 Paroxysmal atrial fibrillation; I25.10 Atherosclerotic heart disease of native coronary artery without angina pectoris; Z79.82 Long term (current) use of aspirin; Z88.0 Allergy status to penicillin; Z95.5 Presence of coronary angioplasty implant and graft; Z95.1 Presence of aortocoronary bypass graft; Z89.512 Acquired absence of left leg below knee; Z89.511 Acquired absence of right leg below knee; Z66 Do not resuscitate; Z87.891 Personal history of nicotine dependence; Z22.322 Carrier or suspected carrier of Methicillin resistant Staphylococcus aureus
CPT/HCPCS: 36415; 71045; 71250; 80053; 80202; 82948; 83605; 83735; 84100; 84145; 84484; 85025; 85055; 86706; 87040; 87070; 87205; 87340; 87637; 87641; 93005; 94640; 96361; 96365; 96367; 96375; 99199; 99291; A9270; C8929; G0257; G0378; J0456; J0692; J0696; J1644; J2405; J3370; J7030; J7040; Q5105; Q9957

== ENCOUNTER 2024-10-19 09:28 | Inpatient (IN) | payer MEDICARE, SELFPAY ==
[2024-10-19] VITALS (29 sets, daily range): BP systolic 96–127; BP diastolic 40–78; PULSE 52–70; RESP 16–20; TEMP 36.1–37; O2SAT 22–100; BMI 29.5
--- NOTE | ~2024-10-19 | XR_ITS ---
MODIFIED ESOPHAGRAM HISTORY: Dysphagia. TECHNIQUE: Modified barium esophagram was performed on 10/21/2024. I administered fluoroscopy and perf ormed the exam with speech pathologist. Patient was seated for lateral fluoroscopic imaging for zoran stion of thin liquids, pudding, solids and quantified amounts, followed by thin liquids in uncontroll ed amounts. This was recorded on tape. A single fluoroscopic spot image was also recorded. The DAP fo r this procedure was 1.4 Gycm2. The amount of fluoroscopy time used during this procedure was 2.4 min utes. FINDINGS: Oral stage: Adequate function. Pharyngeal stage: Reduced tongue base retraction. There is laryngeal penetration with aspiration with thin liquids. Cervical/esophageal stage: Adequate function. IMPRESSION: Laryngeal penetration and aspiration with thin liquids. Please correlate with speech pat hologist findings and specific feeding recommendations. Reviewed, dictated and finalized at location A. M TURBINE OPERATOR IMPRESSION: Laryngeal penetration and aspiration with thin liquids. Please cor relate with speech pathologist findings and specific feeding recommendations.
--- NOTE | ~2024-10-19 | XR_ITS ---
EXAMINATION: XR chest 1V portable DATE: 10/19/2024 10:35 INDICATION: Shortness of breath TECHNIQUE: frontal view of the chest was obtained. COMPARISON: Chest radiograph and CT dated 03/02/2024 FINDINGS: Persistent retrocardiac opacity left lower lung zone corresponding to a region of round atelectasis o n the prior CT. Subtle hazy airspace opacities in the right mid and lower lung zones which could repr esent atelectasis or pneumonia. No pulmonary edema, pleural effusion or pneumothorax. Cardiomegaly. L ikely coronary artery stenting. Median sternotomy wires and mediastinal surgical clips are seen, like ly from prior coronary artery bypass grafting. IMPRESSION: 1. Opacities in the right mid and lower lung zone which could represent atelectasis or pneumonia. 2. Unchanged retrocardiac opacity corresponding to region of chronic round atelectasis in the left lo wer lobe. Reviewed, dictated and finalized at location A. CE ACADEMY INSTRUCTOR IMPRESSION: 1. Opacities in the right mid and lower lung zone which could represent atelect asis or pneumonia. 2. Unchanged retrocardiac opacity corresponding to region of chronic round atel ectasis in the left lower lobe.
--- NOTE | 2024-10-19 09:38 | ECG_ITS ---
Test Date: 2024-10-19 09:40:50 Measurements Intervals [place] Rate: 66 P: 0 [place]: 0 QRS: -21 QRSD: 168 T: 179 QT: 464 QTc: 489 Interpretive Statements SINUS RHYTHM WITH MARKED FIRST DEGREE AV BLOCK WITH FREQUENT VENTRICULAR PREMATURE COMPLEXES NON-CONDUCTED PREMATURE ATRIAL COMPLEX LEFT BUNDLE BRANCH BLOCK BASELINE ARTIFACT- I, II, III, AVR, AVL, AVF ABNORMAL ECG Compared to ECG 03/03/2024 01:41:53 VENTRICULAR PREMATURE COMPLEXES NOW PRESENT Electronically Signed On 10-19-2024 09:50:03 PIPING ENGINEER by Nasim Gee D.O.
[2024-10-19] MEDS: ONDANSETRON INJ 4 MG/2 ML VIAL IV PUSH (10:34)
[2024-10-19] MEDS: SODIUM CHLORIDE 0.9% IV 1,000 ML 999 ML IV CONT (10:34)
--- NOTE | 2024-10-19 10:39 | PC.NURSE ---
Wound to coccyx deniz, friction in nature. No drainage noted, foul odor present
[2024-10-19 10:46] LABS: Basophils Percent Auto 0.3 % (0.2-1.2); Eosinophils Percent Auto 0.1 % (0-4.4); Hematocrit 32.1 % (42.0-52.0); Hemoglobin 10.1 g/dL (14.0-18.0); Immature Granulocyte Absolute 0.05 K/mm3 (0.00-0.031); Immature Granulocyte Percent A 0.5 % (0-0.5); Immature Platelet Fraction Pct 6.1 % (0.9-11.2); Lymphocytes Percent Auto 2.9 % (18.3-44.2); Mean Corpuscular HGB Conc 31.5 g/dl (32-36); Mean Corpuscular Hemoglobin 34.2 pg (26-34); Mean Corpuscular Volume 108.8 fl (80-100); Mean Platelet Volume 12.6 fl (7.4-10.4); Monocytes Absolute Auto 0.7 K/mm3 (0.1-0.6); Monocytes Percent Auto 6.9 % (2.6-8.5); Neutrophils Absolute Auto 9.2 K/mm3 (1.3-6.7); Neutrophils Percent Auto 89.3 % (45.5-73.1); Platelet Count Result 66 k/mm3 (150-375); Red Blood Count 2.95 M/mm3 (4.6-6.20); Red Cell Distribution Width 16.1 % (11.5-14.5); White Blood Count 10.3 K/mm3 (4.5-10.0)
[2024-10-19 10:56] LABS: Alanine Aminotransferase 17 U/L (6-50); Albumin Level 3.4 g/dL (3.5-5.1); Alkaline Phosphatase 158 U/L (38-126); Anion Gap 14 mmol/L (4-12); Aspartate Amino Transferase 24 U/L (17-59); Bilirubin,Total 1.2 mg/dL (0.2-1.3); Blood Urea Nitrogen 46 mg/dL (9-20); Calcium 8.2 mg/dL (8.4-10.2); Carbon Dioxide 30 mmol/L (22-30); Chloride 97 mmol/L (98-107); Estimated CRCL calculation 11 ml/min; Estimated Glomerular Filt Rate 9; Glucose 176 mg/dL (65-110); Lipase 20 U/L (23-300); Potassium 3.8 mmol/L (3.4-5.0); Sodium 141 mmol/L (137-145)
[2024-10-19 11:19] LABS: Influenza A QL RT-PCR Negative (Negative); Influenza B QL RT-PCR Negative (Negative); RSV RNA, RT-PCR Negative (Negative); SARS-CoV-2 RNA PCR Negative (Negative)
[2024-10-19 11:36] LABS: Total Cells Counted 100
[2024-10-19 11:37] LABS: Anisocytosis 1+; Macrocytosis 1+ (NORMAL); Platelet Estimate Decreased (Adequate)
[2024-10-19 11:38] LABS: Schistocytes None Seen
--- NOTE | 2024-10-19 11:39 | PC.NURSE ---
Pt states does not produce urine to give for UA. Dr. Street informed.
--- NOTE | 2024-10-19 12:10 | ED.GENADULT ---
HPI - General Adult General Chief complaint: Nausea/Vomiting/Diarrhea Stated complaint: n/v x 2 days Time Seen by Provider: 10/19/24 09:34 History of Present Illness HPI narrative: Patient is a 59-year-old male. Poor historian. Presents ER after having vomiting for last 2 days. Unsure if he has had diarrhea. No abdominal pain. He is dialysis dependent. On arrival he was found to be hypoxic. No distress. Denies cough. Related Data Home Medications ?Medication ?Instructions ?Recorded ?Confirmed ?Last Taken ?Type ferrous sulfate 325 mg (65 mg 325 mg PO DAILY 06/01/20 10/19/24 03/02/24 History iron) tablet multivitamin 1 tablet PO DAILY 06/01/20 10/19/24 03/02/24 History nitroglycerin 0.4 mg sublingual 0.4 mg sublingual Q5-15M PRN Chest 06/01/20 10/19/24 Unknown History tablet Pain omega-3 fatty acids-fish oil 360 1 cap PO DAILY 06/01/20 10/19/24 03/02/24 History mg-1,200 mg capsule atorvastatin 40 mg tablet (Lipitor) 40 mg PO HS 12/23/20 10/19/24 03/02/24 History folic acid 1 mg tablet 1 mg PO DAILY 12/23/20 10/19/24 03/02/24 History gabapentin 100 mg tablet 200 mg PO HS 12/23/20 10/19/24 03/02/24 History sevelamer carbonate 800 mg tablet 800 mg PO TID 12/23/20 10/19/24 03/02/24 History tamsulosin 0.4 mg capsule (Flomax) 0.4 mg PO DAILY 12/23/20 10/19/24 03/02/24 18:00 History linagliptin 5 mg tablet (Tradjenta) 5 mg PO DAILY 01/13/23 10/19/24 1 Day Ago History ~01/12/23 mirtazapine 15 mg tablet 15 mg PO HS 01/13/23 10/19/24 03/02/24 History sertraline 50 mg tablet 25 mg PO HS 01/13/23 10/19/24 03/02/24 History aspirin 81 mg tablet 81 mg PO DAILY 09/17/23 10/19/24 03/02/24 History meclizine 25 mg tablet 25 mg PO Q8H PRN Dizziness 09/17/23 10/19/24 Unknown History midodrine 10 mg tablet 10 mg PO BID 09/17/23 10/19/24 03/02/24 14:00 History acetaminophen 325 mg tablet 650 mg PO Q6H PRN Pain (Scale 10/29/23 10/19/24 Unknown History (Tylenol) Score 1-3) naloxone 4 mg/actuation nasal spray 1 spray intranasal Q3M PRN Opioid 10/29/23 10/19/24 Unknown History Overdose sennosides 8.6 mg-docusate sodium 1 tablet PO BID PRN Constipation 10/29/23 10/19/24 Unknown History 50 mg tablet (Senna Plus) guaifenesin 100 mg/5 mL oral syrup 600 mg PO Q8H PRN Cough 03/03/24 10/19/24 Unknown History lanolin alcohols-mineral 1 applic topical QPM 03/03/24 10/19/24 03/02/24 History oil-w.petrolatum-ceresin topical cream (Eucerin topical cream) tizanidine 2 mg tablet 2 mg PO TID 10/19/24 10/19/24 Unknown History Allergies Allergy/AdvReac Type Severity Reaction Status Date / Time Penicillins Allergy Unknown Unknown Verified 10/19/24 16:36 bee venom protein (honey bee) Allergy Swelling Verified 10/19/24 16:36 Review of Systems Review of Systems: All systems reviewed & are unremarkable except as noted in HPI and below Constitutional: Constitutional: Reports no additional constitutional complaints Cardiovascular: Cardiovascular: Reports no additional cardiovascular complaints Respiratory: Respiratory: Reports no additional respiratory complaints Genitourinary: Genitourinary: Reports no additional male genitourinary complaints PENDING SALE TO [facility] Past Medical History Medical History (Updated 10/19/24 @ 18:[address] MD) MRSA infection Clostridium difficile diarrhea Paroxysmal atrial fibrillation Transient atrial fibrillation following bypass surgery. Coronary artery disease History of multiple stents and 4 vessel bypass. Type 2 diabetes mellitus Hyperlipidemia End-stage renal disease on hemodialysis Combined systolic and diastolic congestive heart failure Diabetic neuropathy Anxiety and depression Obstructive sleep apnea does not use a CPAP Anemia of chronic disease Diabetic nephropathy Diabetic peripheral neuropathy Arthritis Surgical History Surgical History (Updated 10/19/24 @ 13:12 by Domonique Kline PA-C) History of right below knee amputation History of five vessel coronary artery bypass (2017) [facility] History of cataract extraction with lens replacement History of coronary artery stent placement History of cardiac catheterization History of left below knee amputation History of amputation of toe left 5th toe 2013 small toe on the right amputated Family History Family History Sibling Patient's sister is Diabetes mellitus Sister Acute myocardial infarction Three brothers and 2 sisters History of blood clots Sister Abdominal aortic aneurysm Sister Dementia Brother COPD (chronic obstructive pulmonary disease) Brother Father Acute myocardial infarction, Onset Age: 65 Mother History of blood clots Hypertension, Onset Age: 80 Social History Social History (Updated 10/19/24 @ 13:54 by Domonique Kline PA-C) Social History: Surrogate medical decision maker: Melodie oRca (niece) or Alejandrajame Murray (sister). Code status: Do not resuscitate. Smoking packs per day: 0.25 Smoking cigarettes per day: 5.0 Smoking status: Former smoker Alcohol intake: former Drinks per week: 2 Alcohol use details: Social alcohol use. Substance use: former Substance use type: marijuana Last use: 2018 Do You Feel Safe in your Home?: Yes Lack of Transportation: No Lack of Food: Never True Current Housing: I Have Housing Concerned About Future Housing: No Difficulty Paying Gas/Electric Bills: No Difficulty Paying for Meds: No Currently Unemployed: No Education: Don't Know Difficulty w/ Childcare or Family Care: No Additional living arrangements comments: [facility]. Additional occupation/education comments: Disabled. Spiritual care concerns: No Exam Narrative: GENERAL: Chronically ill-appearing, well-nourished, and in no acute distress. HEAD: Normocephalic, atraumatic. ENT: Mucous membranes moist. NECK: Supple. CHEST: Clear to auscultation. No respiratory distress. HEART: Regular rate and rhythm. Normal peripheral pulses. ABDOMEN: Soft, nontender, nondistended. EXTREMITIES: Contractures the right hand. Bilateral lower extremity BKAs SKIN: Warm, dry, no rash. NEURO: Alert and oriented x3. PSYCH: Normal mood and affect. Course Course Emergency Course: Oxygen improved with 2 L nasal cannula. X-ray with concerns for pneumonia. Mild white count elevation. Will start antibiotics and preserve in hospital. Vital Signs Vital signs: Vital Signs Temperature 97.7 F 10/19/24 09:27 Pulse Rate 69 10/19/24 09:27 Respiratory Rate 20 10/19/24 09:27 Blood Pressure 119/71 10/19/24 09:27 Pulse Oximetry 86 L 10/19/24 09:27 Oxygen Delivery Room Air 10/19/24 09:27 Temperature 97.9 F 10/19/24 17:47 Pulse Rate 61 10/19/24 17:47 Respiratory Rate 18 10/19/24 17:47 Blood Pressure 107/50 L 10/19/24 17:47 Pulse Oximetry 99 10/19/24 16:20 Oxygen Delivery Room Air 10/19/24 16:20 Oxygen Flow Rate 2 10/19/24 09:52 Medical Decision Making Vital Signs Vital Signs: Vital Signs Temperature 97.7 F 10/19/24 09:27 Pulse Rate 69 10/19/24 09:27 Respiratory Rate 20 10/19/24 09:27 Blood Pressure 119/71 10/19/24 09:27 Pulse Oximetry 86 L 10/19/24 09:27 Oxygen Delivery Room Air 10/19/24 09:27 Temperature 97.9 F 10/19/24 17:47 Pulse Rate 61 10/19/24 17:47 Respiratory Rate 18 10/19/24 17:47 Blood Pressure 107/50 L 10/19/24 17:47 Pulse Oximetry 99 10/19/24 16:20 Oxygen Delivery Room Air 10/19/24 16:20 Oxygen Flow Rate 2 10/19/24 09:52 Lab Data 10/19/24 10:35 10/19/24 10:35 Labs: Lab Results 10/19/24 10/19/24 Range/Units 10:34 10:35 WBC 10.3 H (4.5-10.0) K/mm3 RBC 2.95 L (4.6-6.20) M/mm3 Hgb 10.1 L (14.0-18.0) g/dL Hct 32.1 L (42.0-52.0) % MCV 108.8 H (80-100) fl MCH 34.2 H (26-34) pg MCHC 31.5 L (32-36) g/dl RDW 16.1 H (11.5-14.5) % Plt Count 66 L (150-375) k/mm3 MPV 12.6 H (7.4-10.4) fl Immature Gran % (Auto) 0.5 (0-0.5) % Neut % (Auto) 89.3 H (45.5-73.1) % Lymph % (Auto) 2.9 L (18.3-44.2) % [place] % (Auto) 6.9 (2.6-8.5) % Eos % (Auto) 0.1 (0-4.4) % Baso % (Auto) 0.3 (0.2-1.2) % Lymph # (Auto) 0.30 L (0.9-3.2) K/mm3 [place] # (Auto) 0.7 H (0.1-0.6) K/mm3 Eos # (Auto) 0.0 (0-0.3) K/mm3 Baso # (Auto) 0.0 (0.0-0.1) K/mm3 Abs Immat Gran (auto) 0.05 H (0.00-0.031) K/mm3 Absolute Neuts (auto) 9.2 H (1.3-6.7) K/mm3 Absolute Nucleated RBC 0.000 (0.0-0.012) K/mm3 Total Counted 100 Nucleated RBC % 0.0 (0.0-0.2) % Platelet Estimate Decreased (Adequate) % Immature Plt Fraction 6.1 (0.9-11.2) % Anisocytosis 1+ Macrocytosis 1+ (NORMAL) Schistocytes None seen Sodium 141 (137-145) mmol/L Potassium 3.8 (3.4-5.0) mmol/L Chloride 97 L (98-107) mmol/L Carbon Dioxide 30 (22-30) mmol/L Anion Gap 14 H (4-12) mmol/L BUN 46 H D (9-20) mg/dL Creatinine 6.66 H (0.7-1.3) mg/dL Estim Creat Clear Calc 11 ml/min Estimated GFR 9 L (59 - ) Glucose 176 H (65-110) mg/dL Calcium 8.2 L (8.4-10.2) mg/dL Total Bilirubin 1.2 (0.2-1.3) mg/dL AST 24 (17-59) U/L ALT 17 (6-50) U/L Alkaline Phosphatase 158 H (38-126) U/L Total Protein 8.0 (6.3-8.2) g/dL Albumin 3.4 L (3.5-5.1) g/dL Lipase 20 L (23-300) U/L Hep Bs Antigen Negative (Negative) Hep Bs Antibody Negative Influenza A (RT-PCR) Negative (Negative) Influenza B (RT-PCR) Negative (Negative) RSV (RT-PCR) Negative (Negative) SARS-CoV-2 RNA (RT-PCR) Negative (Negative) Imaging Data Radiologist's impression: ITS Impressions Chest X-Ray 10/19/24 10:37 IMPRESSION: 1. Opacities in the right mid and lower lung zone which could represent atelectasis or pneumonia. 2. Unchanged retrocardiac opacity corresponding to region of chronic round atelectasis in the left lower lobe. Discharge Plan Discharge Clinical Impression: ESRD on dialysis, Hypoxia Pneumonia Qualifiers: Pneumonia type: due to unspecified organism Laterality: left Lung location: lower lobe of lung Qualified Code(s): J18.9 - Pneumonia, unspecified organism Patient Disposition: Still a Patient Condition: Stable
--- OUTSIDE RECORDS SUMMARY | 2024-10-19 12:37 | XMS_ITS | Clinical Summary ---
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 Active tamsulosin 0.4 MG Cap Take 0.4 mg by mouth daily. Active ammonium lactate 12 % cream Apply 1 each topically 2 (two) times a day. To lower extremity Active famotidine 20 MG tablet Take 20 mg by mouth daily. Active fenofibrate 54 MG tablet Take 54 mg by mouth daily. Active ferrous sulfate, 65 mg elemental, 325 (65 FE) MG tablet Take 325 mg by mouth daily. Active gabapentin 100 MG capsule Take 100 mg by mouth nightly. Active insulin lispro 100 UNIT/ML injection (VIAL) Inject 1-5 Units into the skin 3 (three) times daily before meals. BS 151-200: 1 unit BS 201-250: 2 units BS 250-300:3 units BS 300-350: 4 units BS 350-400: 5 units Active hydrALAZINE HCl 100 MG Tab Take 1 tablet by mouth 3 (three) times a day. Active insulin glargine 100 UNIT/ML injection (VIAL) Inject 10 Units into the skin nightly at bedtime. Active isosorbide dinitrate 10 MG tablet Take 10 mg by mouth 3 (three) times daily. Active linaGLIPtin 5 MG tablet Take 5 mg by mouth daily. Active loperamide 2 MG capsule Take 2 mg by mouth every 6 (six) hours as needed for Diarrhea. Active metoprolol succinate ER 25 MG 24 hr tablet Take 25 mg by mouth daily. Active multi vitamin/minerals tablet Take 1 tablet by mouth daily. Active HYDROcodone-acet aminophen 5-325 MG tablet Take 1 tablet by mouth every 6 (six) hours as needed for Pain. Active nystatin powder Apply 1 each topically daily as needed. Apply to groin Active ondansetron 4 MG tablet Take 4 mg by mouth every 6 (six) hours as needed for Nausea. Active traZODone 50 MG tablet Take 50 mg by mouth nightly at bedtime. Active vitamin D3, cholecalciferol, 1000 UNIT Tab tablet Take 1 tablet by mouth daily. Active bisacodyl [address] 10 mg rectally daily as needed for Constipation. Active atorvastatin 40 MG tablet Take 1 tablet (40 mg total) by mouth daily. 30 tablet 0 Active furosemide 80 MG tabletIndication s:Cardiomegaly Take 1 tablet (80 mg total) by mouth daily. 30 tablet 0 Active Active Problems Problem Noted Date Diagnosed Date COVID-19 08/15/2020 NATAN (acute kidney injury) 07/28/2020 Family History Medical History Relation Comments Heart Disease Brother Heart Disease Father Hypertension Mother Relation Status Comments Brother Father Mother Social History Tobacco Use Types Packs/Day Years Used Date Smoking Tobacco: Former Cigarettes Q uit: 09/02/2019 Smokeless Tobacco: Never Alcohol Use Standard Drinks/Week Comments Not Currently 0 (1 standard drink = 0.6 oz pur e alcohol) rarely Humiliation, Afraid, Rape, and Kick questionnair e Answer Date Recorded Within the last year, have y ou been afraid of your partner or ex-partner? No 07/28/2020 Within the last year, have y ou been humiliated or emotionally abused in other ways by your partner or ex-partner? No Within the last year, have y ou been kicked, hit, slapped, or otherwise physically hurt by your partner or ex-partner? No 07/28/2020 Within the last year, have y ou been raped or forced to have any kind of sexual activity by your partner or ex-partner? No 07/28/2020 Social Connection and Isolat ion Panel [NHANES] Answer Date Recorded In a typical week, how many times do you talk on the phone with family, friends, or neighbors? More than three times a week 07/28/2020 How often do you get togethe r with friends or relatives? More than three times a week 07/28/2020 How often do you attend chur ch or baptist services? Never 07/28/2020 Do you belong to any clubs o r organizations such as oriental orthodox groups, unions, fraternal or athletic groups, or school groups? No 07/28/2020 How often do you attend meet ings of the clubs or organizations you belong to? Never 07/28/2020 Are you , , di vorced, , never , or living with a partner? Never 07/28/2020 Overall Financial Resource Strain (CARDIA) Answe r Date Recorded How hard is it for you to pa y for the very basics like food, housing, medical care, and heating? Somewhat hard 07/28/2020 [facility] [place] [facility] - Occupational Stress Questionnaire Answer Date Recorded Do you feel stress - tense, restless, nervous, or anxious, or unable to sleep at night because your mind is troubled all the time - these days? Not at all 07/28/2020 Exercise Vital Sign Answer Date Recorde d On average, how many days pe r week do you engage in moderate to strenuous exercise (like a brisk walk)? 7 days 07/28/2020 On average, how many minutes do you engage in exercise at this level? 60 min 07/28/2020 Hunger Vital Sign Answer Date Recorded Within the past 12 months, y ou worried that your food would run out before you got the money to buy more. Sometimes true Within the past 12 months, t he food you bought just didn't last and you didn't have money to get more. Never true PRAPARE - Transportation Answer Date Re corded In the past 12 months, has l ack of transportation kept you from medical appointments or from getting medications? Yes 07/04 In the past 12 months, has l ack of transportation kept you from meetings, work, or from getting things needed for daily living? 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 Sexual Orientation Straight 07/28/2020 4: 01 PM SOLID WASTE DISPOSAL MANAGER Last Filed Vital Signs Vital Sign Reading Time Taken Comments Blood Pressure 141/56 08/15/2020 11:15 AM SOLID WASTE DISPOSAL MANAGER Pulse 64 08/15/2020 11:15 AM SOLID WASTE DISPOSAL MANAGER Temperature 36.9 C (98.4 F) 08/15/2020 11:15 AM SOLID WASTE DISPOSAL MANAGER Respiratory Rate 18 08/15/2020 11:1 5 AM SOLID WASTE DISPOSAL MANAGER Oxygen Saturation 91% 08/15/2020 11: 15 AM SOLID WASTE DISPOSAL MANAGER Inhaled Oxygen Concentration - - Weight 106.8 kg (235 lb 7.2 oz) 08/15/2020 4:10 AM SOLID WASTE DISPOSAL MANAGER Height 182.9 cm (6') 07/28/2020 8:44 AM SOLID WASTE DISPOSAL MANAGER Body Mass Index 31.93 07/28/2020 8:44 AM SOLID WASTE DISPOSAL MANAGER Plan of Treatment Health Maintenance Due Date Last Done Comments Colorectal Cancer Screening Colonoscopy (10 Years) 1963 Annual Physical 1966 PHQ-2 ([facility] [place]) 1975 Hepatitis C 1981 DTaP, Tdap and Td Vaccines ( 1 - Tdap) 1982 Zoster Vaccines (1 of 2) 2013 COVID-19 Vaccine (2023-2 5 season) 2024 Influenza Adult (#1) 2024 07/01/2020, 06/16/2017, 06/02/2017 PHQ-2 ([facility] [place]) 09/02/2024 RSV Immunization or 60+ Years (1 - 1-dose 75+ series) 2038 Meningococcal B Vaccine Aged Out No l onger eligible based on patient's age to complete this topic Meningococcal Vaccine Aged Out No zainab nandini eligible based on patient's age to complete this topic Pneumococcal Vaccine: Pediatrics (0 to 5 Years) and At-Risk Patients (6 to 64 Years) Aged Out No longer eligible b ased on patient's age to complete this topic RSV Immunizations Under 20 Months Aged Out No longer eligible b ased on patient's age to complete this topic Medical Devices Implanted Type Area City Clerk Device Identifier Shelf Expiration Date Model / Serial / Lot Set Cath 23cm 15fr 18ga .038in Polyure Arw Smp Arw - [id number] Implanted:Qty : 1 on 08/12/2020 by Eliecer Oropeza MD at [facility] Catheter Implant N/A: [employer] [id number] / / Insurance G[employer]DINGS Advance Directives * Full Code (Latest Code Status on File) Date Activated Date Inactivated Comments 08/12/2020 3:26 PM 08/15/2020 6:39 PM * Full Code Date Activated Date Inactivated Comments 07/28/2020 1:38 PM 08/12/2020 3:26 PM 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
--- OUTSIDE RECORDS SUMMARY | 2024-10-19 12:37 | XMS_ITS | Clinical Summary ---
Author Organization [facility] [place] [address] Address [address] [place] [address] Care Team Providers Care Director Of Cloud Services Name Role Phone Frandy Colunga MD Unavailable [phone] Alcon QuintanillaM Unavailable [phone], Physician Primary Care Provider [phone] Theodore Solis MD Unavailable Leah MARINO MD, Kenedy Hoos[place] Unavailable [phone] Allergies Active Allergy Reactions Criticality Noted Date Comments Venom-Honey Bee Swelling Medium Penicillins Unknown Low As a child Medications nitroglycerin (NITROSTAT) 0.[address] 1 tablet (0.4 mg total) under the tongue every 5 (five) minutes as needed for chest pain 12/31/19 12 Active omega-3 fatty acids-fish oil 360-1,200 mg capsuleIndications:h ypertriglyceridemia Take 1 capsule by mouth daily Active multivitamin tabletIndications:Vi tamin Deficiency Prevention Take 1 tablet by mouth daily 04/07/20 18 Active ferrous sulfate 325 mg (65 mg of elemental iron) tablet Take 1 tablet (325 mg total) by mouth daily with breakfast Active tamsulosin (FLOMAX) 0.4 mg extended release capsule Take 1 capsule (0.4 mg total) by mouth daily with dinner 07/01/20 20 Active atorvastatin (LIPITOR) 40 mg tablet Take 1 tablet (40 mg total) by mouth nightly Active fenofibrate nanocrystallized (TRICOR) 48 mg tablet Take 1 tablet (48 mg total) by mouth daily Active folic acid (FOLVITE) 1 mg tablet Take 1 tablet (1 mg total) by mouth daily Active Lactobacillus acidophilus capsule Take 1 capsule by mouth 3 (three) times a day Active linaGLIPtin (TRADJENTA) 5 mg tabletIndications:ty pe 2 diabetes mellitus Take 1 tablet (5 mg total) by mouth daily Active mirtazapine (REMERON) 15 mg tablet Take 1 tablet (15 mg total) by mouth nightly Active pantoprazole DR (PROTONIX) 40 mg EC tablet Take 1 tablet (40 mg total) by mouth daily before breakfast Active sertraline (ZOLOFT) 50 mg tablet Take 3 tablets (150 mg total) by mouth daily Active sevelamer (RENVELA) 800 mg tabletIndications:Re nal Osteodystrophy with Hyperphosphatemia Take 1 tablet (800 mg total) by mouth 3 (three) times a day with meals Active gabapentin (NEURONTIN) 100 mg capsule Take 2 capsules (200 mg total) by mouth nightly 60 capsule 02/27/20 23 Active senna-docusate (PERICOLACE) 8.6-50 mg Take 1 tablet by mouth 2 (two) times a day as needed for constipation 20 tablet 02/27/20 23 Active methocarbamoL (ROBAXIN) 500 mg tablet Take 1 tablet (500 mg total) by mouth 3 (three) times a day 40 tablet 02/27/20 23 Active oxyCODONE (ROXICODONE) 5 mg immediate release tabletIndications:Pa in Take 1 tablet (5 mg total) by mouth every 4 (four) hours as needed for pain 90 tablet 02/29/20 23 Active ramelteon (ROZEREM) 8 mg tabletIndications:Sl eep-Onset Insomnia Take 1 tablet (8 mg total) by mouth nightly 30 tablet 02/29/20 23 Active acetaminophen (TYLENOL) 325 mg tablet Take 2 tablets (650 mg total) by mouth every 6 (six) hours as needed for pain Active naloxone (NARCAN) 4 mg/actuation spray,non-aerosol Administer 1 spray into affected nostril(s) as needed for opioid reversal Call 911. Administer a single spray in one nostril. Repeat every 3 minutes as needed if no or minimal response. Active lidocaine HCL 3 % cream Apply 1 Application topically 5 (five) times a week on Saturday, Saturday, Saturday, , and Saturday. Apply to right arm dialysis site 30 minutes before dialysis. Active lidocaine (LMX) 4 % cream Apply 2.5 g (1 Application total) topically daily to left thigh. Active aspirin 81 mg chewable tablet Take 1 tablet (81 mg total) by mouth daily 30 tablet 03/17/20 Active traMADoL (ULTRAM) 50 mg tablet Take 1 tablet (50 mg total) by mouth every 4 (four) hours as needed for pain 90 tablet 04/02/20 23 Active midodrine (PROAMATINE) 10 mg tabletIndications:Sy mptomatic Orthostatic Hypotension Take 1 tablet (10 mg total) by mouth every 8 (eight) hours 90 tablet 04/30/20 23 Active Active Problems Problem Noted Date Diagnosed Date Septic shock 04/16/2023 Cholecystitis 04/15/2023 Closed right hip fracture 04/03/2023 Assessment & Plan (04/09/2023 7:05 PM CDT): Slowly improving, recent xray aligned, ortho fu being arranged by DON, consider fu xrays in 2 weeks if doesn't see ortho sooner, expect pain to improve over next 2-4 weeks Assessment & Plan (04/03/2023 5:31 PM CDT): As per HPI patient with recent right hip fracture. May have been related to a recent fall. Patient with signs of osteoporosis not surprising due to his chronic kidney disease. It is likely that the fracture did not show up on initial x-rays that were done after the fall. Either way the fracture is aligned and given his bilateral amputee status he would have had nonoperative management either way. There is still no signs of displacement. Discussed extensively with director of hotel operations and therapy. We will proceed with therapy as tolerated and staff will set him up for an outpatient orthopedics referral just to make sure nothing else needs to be done. Continue pain control in the meantime and per request of sister we will stop the oxycodone change to tramadol and see how he fares. Discussed extensively with patient who understands and agrees with the plans and prognosis Contusion of right hip and thigh 03/19/2023 Assessment & Plan (03/26/2023 3:14 PM CDT): Morning pain likely related to muscle spasms. Continue scheduled muscle relaxer and as needed pain medication. As pain subsides consider backing off some of the pain medication to help mentation. Recent x-rays negative Assessment & Plan (03/22/2023 5:03 PM CDT): No new fx on xray Cont pt/ot Ortho fu in apr Pain control Assessment & Plan (03/19/2023 3:49 PM CDT): Dw nursing and sister Sched tylenol 650 mg qid Cont methocarbamol and prn oxy in addn to renal dose gabap Xrays ue and le negative for fx or acute injury Cont therapy Acute metabolic encephalopathy 03/11/2023 Assessment & Plan (03/26/2023 3:13 PM CDT): Likely multifactorial and due to recent infection along with medication and recent subarachnoid hemorrhage. Also related to environment changes. Seems to be slowly improving. Discussed with patient and sister Marilou today that we will try to back off on pain medicines when his condition allows. From an infection and liver standpoint things do seem stable Assessment & Plan (03/22/2023 5:02 PM CDT): Improving some, likely as he settles in and infection improving, cbc and lft all better; consider dec meds as he improves Assessment & Plan (03/19/2023 3:49 PM CDT): Likely rt meds, recent sah, recent infection, etc, try to wean pain meds when able, finishing up abt for so Assessment & Plan (03/18/2023 4:48 PM CDT): Multifactorial Due to recent infection/illnesses and meds Will follow labs closely, cbc and lft weds and then periodically from there Dw sister and pt Assessment & Plan (03/11/2023 9:34 PM CDT): Patient presented with mental status changes likely acute metabolic encephalopathy in the setting of infection. Treat underlying cause. Mental status is improving. Acute cholecystitis due to biliary calculus 03/02 Assessment & Plan (04/03/2023 5:27 PM CDT): Still has drain with minimal drainage and follows up with GI on April 15 Assessment & Plan (03/26/2023 3:13 PM CDT): Patient has drain in place at least until April 15 when he sees GI. I reminded patient has sister and director of hotel operations at this appointment at [facility] at 1:[address] Bradley. We will leave drain in for now. No concerning findings related to the drain today. CBC and LFTs are all stable including white blood cell count. Seems to be doing fairly well off of antibiotics and no acute GI symptoms Assessment & Plan (03/22/2023 5:03 PM CDT): Reviewed lft and cbc, improving, clinically improving, repeat cbc mon Assessment & Plan (03/18/2023 4:49 PM CDT): Finishing up po abt ceftin and flagyl, both til 03/21 Cont to follow cbc and lft Gi fu 04/15, sister and DON/fac aware Leave drain in place til then Assessment & Plan (03/11/2023 9:38 PM CDT): Patient presented with mental status, high fever of 103.[address] shows Increased mild thickening and stranding of a distended gallbladder compared to 02/15/2023 suspicious for cholecystitis. Possible 9 mm stone within the cystic duct. Patient was admitted. Treat with IV antibiotics. Surgery was consulted. Not a surgical candidate and IR was consulted Sepsis without acute organ dysfunction 3 Assessment & Plan (03/11/2023 9:46 PM CDT): Patient presented with high fever, elevated lactate, leukocytosis, tachypnea, hypotension in the setting of acute cholecystitis. Suspect sepsis. Obtain blood cultures and treat with IV antibiotics. Patient was admitted to the intensive care unit. Hypoxemia 03/11/2023 Assessment & Plan (03/11/2023 9:41 PM CDT): Treat with oxygen supplementation. Titrate to keep sats above 90. Type 2 diabetes mellitus wit h chronic kidney disease, with long-term current use of insulin 03/11/2023 Overview (03/11/2023): Monitor and control blood sugars. Altered mental status, unspe cified altered mental status type 03/10/2023 Assessment & Plan (03/11/2023 9:33 PM CDT): Patient presented with mental status changes from the [facility] and found to have acute cholecystitis. Likely acute metabolic encephalopathy. Treat underlying cause. Mental status is improving. Closed left subtrochanteric femur fracture, sequ christiana 02/28/2023 Assessment & Plan (04/09/2023 7:04 PM CDT): Ortho fu pending, aquilino phan Assessment & Plan (04/03/2023 5:26 PM CDT): Nonoperative management was recommended at [facility] earlier this summer. We will arrange outpatient follow up with Orthopedics but seems to be asymptomatic on that leg Assessment & Plan (03/26/2023 3:12 PM CDT): As per HPI, pain seems somewhat better controlled on current regimen. Recent x- rays did not show any new fractures. I reminded director of hotel operations the patient appears to still need appointment made with Orthopedics at [facility]. Phone #[phone] Assessment & Plan (03/18/2023 4:48 PM CDT): Pain controlled on oxycodone and methocarbamol Dw pt and sister marilou who was present some ams sx could be due to pain meds Currently co pain but eventually want to try to wean these Has ortho and nsgy fu in apr, per AQUILINO keen is aware Assessment & Plan (03/06/2023 4:15 PM CDT): Continue physical therapy as well as pain control with oxycodone. Discussed with director of hotel operations about getting follow up with Orthopedics in 3 weeks and we will get her that information Assessment & Plan (02/28/2023 9:47 AM CDT): Therapy and pain control w oxy Ortho fu in 4 weeks Careful w blood thinners given sah Adjustment insomnia 02/28/2023 Assessment & Plan (03/06/2023 4:16 PM CDT): Continue current Remeron and Rozerem. Also on Zoloft for history of depression and no plans to reduce that as a subtle sent to new facility. Abdominal pain seems to be resolved today. Subarachnoid hematoma with l oss of consciousness, initial encounter 02/15/2023 Assessment & Plan (04/09/2023 7:04 PM CDT): Clinically doing better, neuro appt later this month, staff aware Assessment & Plan (04/03/2023 5:26 PM CDT): As neurosurgery follow up later this month. Overall no neurologic sequelae Assessment & Plan (03/26/2023 3:12 PM CDT): Neurological status seems to be slowly improving. Reminded director of hotel operations that patient has on April 23 appointment with Neurosurgery at [facility] at 1:30 p.m. along with the details Assessment & Plan (03/22/2023 5:02 PM CDT): Neuro stable and maybe improved, fu nsgy in apr w imaging as planned Assessment & Plan (03/19/2023 3:48 PM CDT): No new neuro findings, on asa only Assessment & Plan (03/18/2023 4:46 PM CDT): Neuro intact today, cont asa and neuro checks Assessment & Plan (03/06/2023 4:15 PM CDT): Seems to be clinically improving neurologically. Discussed with director of hotel operations about getting neurosurgery follow up in about 3 weeks. We will get her that information Assessment & Plan (02/28/2023 9:47 AM CDT): Clinically improving slowly Cont therapy Nsgy fu in 4 weeks Acute cholangitis 12/06/2022 Irritable bowel syndrome with diarrhea Assessment & Plan (02/08/2022 10:18 AM CDT): Continue Juan johnson Assessment & Plan (12/06/2021 1:43 PM CDT): EGD done 11/03/21 Normal esophagus. Erosive gastropathy with stigmata of recent bleeding. Biopsied. Normal duodenal bulb, first portion of the duodenum and second portion of the duodenum. Colonoscopy 11/03/21: Diverticulosis in the descending colon. Congested mucosa in the entire examined colon. Biopsied. The distal rectum and anal verge are normal on retroflexion view. Stomach and colon biopsy: Negative for intestinal metaplasia and dysplasia. - Negative for Helicobacter. No significant histopathologic alteration Pathology report Colon/stomach: A. Duodenum, biopsy: No significant histopathologic alteration. B. Stomach, biopsies: - Antral and oxyntic-type gastric mucosa showing mild chronic inactive gastritis. - Negative for intestinal metaplasia and dysplasia.- Negative for Helicobacter. C. Right colon, random biopsies: - No significant histopathologic alteration. D. Left colon, random biopsies: - No significant histopathologic alteration. Reviewed with pt. Continue sid. Started Dicyclomine Chronic rectal pain 08/08/2021 Assessment & Plan (10/27/2021 3:09 PM INJECTION MOLDING SUPERVISOR): EGD/Colonoscopy scheduled for 11/03/21 Hold aspirin 10/29/21 Assessment & Plan (08/15/2021 1:41 PM INJECTION MOLDING SUPERVISOR): Patient was referred for colonoscopy and has appointment with GI. Abdominal pain has resolved. Assessment & Plan (08/08/2021 12:33 PM INJECTION MOLDING SUPERVISOR): Last colonoscopy 2012 (Unavailable). Recurrent rectal pain and diarrhea. No hemorrhoids. Check CBC. Encounter for surgical after care following surgery of circulatory system 06/16/2021 Chronic diarrhea 06/06/2021 Assessment & Plan (10/03/2021 9:10 AM INJECTION MOLDING SUPERVISOR): Pt was given Lomotil due to diarrhea and now c/o constipation. Resume questran and loperamide when constipation resolved. Assessment & Plan (07/28/2021 12:53 PM INJECTION MOLDING SUPERVISOR): Pt was given Lomotil due to diarrhea and now c/o constipation. Resume questran and loperamide when constipation resolved. Assessment & Plan (07/18/2021 1:25 PM INJECTION MOLDING SUPERVISOR): Continue cholestyramine and loperamide. Assessment & Plan (07/07/2021 12:44 PM CDT): Patient requesting GI referral. Diarrhea controlled on current medication. Review any previous GI workup done for diarrhea and a recommendation for referral if needed for outpatient GI follow-up. Assessment & Plan (07/04/2021 10:20 AM CDT): Patient had several episodes of diarrhea today. Continue loperamide, cholestyramine, and Florastor. Assessment & Plan (06/14/2021 2:15 PM CDT): Continue Questran and Lomotil as needed Assessment & Plan (06/06/2021 1:59 PM CDT): Stable on Questran and Florastor. Gait apraxia 06/03/2021 Assessment & Plan (02/28/2023 9:47 AM CDT): Cont therapy Assessment & Plan (06/03/2021 11:25 PM CDT): Patient do physical and occupational therapy for strengthening. Patient does have a prosthesis on the left leg will continue to monitor patient S/P bilateral BKA (below knee amputation) (CMS/H CC) 05/31/2021 Assessment & Plan (04/09/2023 7:04 PM CDT): Cont pt/ot Assessment & Plan (04/03/2023 5:26 PM CDT): Continues with physical and occupational therapy Assessment & Plan (03/26/2023 3:11 PM CDT): He continues with physical and occupational therapy as well as pain control with oxycodone gabapentin and methocarbamol Assessment & Plan (03/22/2023 5:02 PM CDT): Cont pt/ot Assessment & Plan (03/19/2023 3:48 PM CDT): Conts w pt/ot Assessment & Plan (03/18/2023 4:45 PM CDT): Will see how he fares w pt/ot Assessment & Plan (03/11/2023 9:41 PM CDT): Supportive care. Assessment & Plan (03/06/2023 4:14 PM CDT): Continue with physical therapy and oxycodone for pain Assessment & Plan (02/28/2023 9:46 AM CDT): Cont therapy Assessment & Plan (10/03/2021 9:09 AM INJECTION MOLDING SUPERVISOR): Patient's pain is controlled with [place] Patient needs AKA wound functional level for prosthesis for transfer and ambulation on level surfaces at a fixed candence Assessment & Plan (06/14/2021 2:19 PM CDT): Percocet change to [place] as patient could not tolerate Assessment & Plan (05/31/2021 1:38 PM CDT): Continue PT/OT. Recurrent major depressive disorder, in remissio n 05/31/2021 Assessment & Plan (03/18/2023 4:46 PM CDT): Cont remeron, stable but fluctuates due to recent hosp stay and illnesses Assessment & Plan (07/28/2021 12:53 PM INJECTION MOLDING SUPERVISOR): Continue Remeron and Zoloft. Assessment & Plan (07/04/2021 10:20 AM CDT): Stable mood on Remeron and Zoloft. Assessment & Plan (05/31/2021 1:45 PM CDT): Stable mood. Continue Zoloft 150 mg once daily Type 2 diabetes mellitus wit h diabetic peripheral angiopathy and gangrene, with long-term current use of insulin 05/31/2021 Assessment & Plan (03/22/2023 5:02 PM CDT): Cont regimen and watch sugars, avoid hypoglyc Assessment & Plan (03/18/2023 4:46 PM CDT): Watch sugars and cont linagliptin Assessment & Plan (02/28/2023 9:47 AM CDT): Monitor sugars and cont current regimen Assessment & Plan (02/08/2022 10:07 AM CDT): Continue Tradjenta. Check A1c, CBC, BMP tomorrow. Assessment & Plan (10/03/2021 9:11 AM INJECTION MOLDING SUPERVISOR): Continue Tradjenta and Glargine. Blood sugars have been stable between 70 and 150 Assessment & Plan (09/05/2021 12:27 PM INJECTION MOLDING SUPERVISOR): Continue Tradjenta and Glargine. Check A1c every 90 days. Assessment & Plan (08/01/2021 11:57 AM INJECTION MOLDING SUPERVISOR): Blood glucose 110 - 138 Continue Glargine and Tradjenta Assessment & Plan (07/18/2021 1:24 PM INJECTION MOLDING SUPERVISOR): Continue Tradjenta and glargine insulin. Assessment & Plan (06/29/2021 1:46 PM CDT): Stable on Tradjenta and glargine insulin. Assessment & Plan (06/06/2021 2:02 PM CDT): Continue Tradjenta and glargine Assessment & Plan (05/31/2021 1:46 PM CDT): Continue glargine and Tradjenta. Hypophosphatemia 05/30/2021 Assessment & Plan (05/30/2021 10:08 AM CDT): - Held sevelamer for low phosphorous level. - Given IV phos per renal 05/29 skilled nursing (current) use of antibiotics Assessment & Plan (05/29/2021 7:48 AM CDT): Labs reviewed. No c/f antibiotic toxicities. Nausea & vomiting 05/25/2021 Assessment & Plan (05/30/2021 9:25 AM CDT): - Developed nausea and vomiting around dinner time 05/24. Made NPO overnight and given IV PPI. - Denies any further abdominal pain, nausea or vomiting. - Tolerating diet without nausea. Continue supplements Foot ulcer, right 02/23/2021 Assessment & Plan (02/28/2021 8:23 AM CDT): Right foot ulcers, heel pressure ulcer, unstageable, no SOI - Foot x-ray 02/22: Right fifth transmetatarsal amputation with mildly increasing permeative change and periosteal reaction, suspicious for ongoing osteomyelitis. - Started on broad spectrum antibiotics on admission - Podiatry consulted, recommended: - Prevalon boot, advised patient on wearing Prevalon boot at all times for all laying and sitting. - Bedside debridement to heel ulcer and dorsum ulcer today. Continue betadine paint to all areas including garrison tissue of heel ulcer. Iodasorb to heel eschar. Cover with dry dressing. - ID consulted: dapto/ flagyl/ cefepime at discharge for 6 weeks - Continue transfers with post op shoe then wear prevalon boot while up in chair or laying in bed. Atrial fibrillation (CMS/HCC) 02/22/2021 Assessment & Plan (03/18/2023 4:45 PM CDT): Stable and rate controlled, on asa, need to hold off other oac due to hx of ich Assessment & Plan (10/03/2021 9:09 AM INJECTION MOLDING SUPERVISOR): Not on anticoagulation. Continue Metoprolol, Aspirin. Assessment & Plan (08/01/2021 11:54 AM INJECTION MOLDING SUPERVISOR): Not on anticoagulation. Continue Metoprolol, Aspirin. Assessment & Plan (05/16/2021 9:05 AM CDT): - Not on anticoagulation - Continue metoprolol Assessment & Plan (02/22/2021 10:43 AM CDT): - Not on anticoagulation - Continue metoprolol Fall 02/22/2021 Assessment & Plan (02/22/2021 3:28 PM CDT): - Patient fell at facility 02/21 [facility] [employer], states he rolled out of bed and hit his head on the ground. No loss of consciousness per patient. - Fall precautions - Low bed Hearing loss 11/30/2020 Assessment & Plan (12/01/2020 10:41 AM CDT): - Patient with sudden onset of decreased hearing 11/30 that lasted about 2 hours, hearing spontaneously returned to baseline - Audiology consulted, planning to see 12/01 - Vanc changed to daptomycin, lasix discontinued. Depression 11/29/2020 Assessment & Plan (05/24/2021 10:56 AM CDT): - Psych consult at pt request: increased Zoloft, added remeron Assessment & Plan (12/01/2020 10:32 AM CDT): - Patient previously on an antidepressant (zoloft, lexapro), stopped at some point in the past - Psychiatry consulted for assessment - No urgent indication to restart antidepressant (Lexapro). Would defer restarting Lexapro to when patient is medically stable and delirium improved. May restart Lexapro 5mg QAM and increase to 10mg QAM if tolerating. Gangrene of right foot ([facility]/HCC) 11/15/2020 Assessment & Plan (05/26/2021 7:20 AM CDT): - Presented to Dr. Quintanilla's clinic with worsening foot wounds. Unsalvageable per Dr. Colunga and Dr. Chen. On IV ABX started January 2021- 04/26/2021. - S/p OR 05/18/2021 for right BKA - OOB TC - Surgical dressing to remain in place until POD 2 - Renal, carb consistent diet - Pain control: scheduled aetaminophen, prn flexeril and oxycodone - ampushield on - PT/OT - Awaiting discharge to SNF Assessment & Plan (12/01/2020 10:11 AM CDT): - Patient presented to Dr. Colunga's clinic with right lateral foot wound, draining pus and erythema tracking up foot and right heel wound with eschar - Right foot wound culture 11/14: MRSA - Right foot x-ray: right foot plantar soft tissue ulcer with surrounding inflammation. . - MRI right foot: osteomyelitis involving the right fifth metatarsal head/neck and proximal phalanx of the fifth toe - Blood cultures 11/14: NG final - Podiatry consulted and drained abscess and debrided nonviable subcu tissue from the right fifth metatarsophalangeal joint - Infectious Disease consulted, treated initially with broad spectrum IV antibiotics but narrowed to daptomycin after HD sessions () - Pain control with POPM - OR 11/18 for partial 5th ray amputation with Dr Gary (Podiatry); OR cultures; trudi bray, MRSA - 11/20 R foot wound sutured closed at bedside by Podiatry - Off load with Chris podus boot to RLE, non-weight bearing x 2-4 weeks - Santyl daily to the R posterior heel ulcer lightly moistened saline dressing 2 x 2 over the ulcer and then dry sterile dressing. The surgical site dressing be changed daily, paint with Betadine solution 4x4s 4 in Kerlix. Open wound of left thigh 11/15/2020 Assessment & Plan (12/01/2020 10:16 AM CDT): - Left lateral thigh wound with drainage and erythema - Left thigh x-ray with soft tissue defect of the lateral aspect of the left knee, without definite underlying bony erosion. - Wound care consulted for vac placement, placed 11/18 and took down on 11/21. - MRI Left thigh with findings of osteomyelitis involving the left fibular head and possibly to left tibial shaft - Proximal fibular head bone biopsy performed in the OR 11/23; no growth of aerobic/anaerobic bacteria, no growth of fungal to date - PRS consulted for evaluation of left lateral thigh wound - OR with PRS for debridement, fibulectomy, veraflo vac placement 11/30, wound vac did not stay on 10/04 patient oozy after OR (on ASA and Plavix), dressing reinforced multiple times. - Plan to return to the OR 12/05 for further debridement and wound vac placement - Planning to transfer to [facility] Primary service for further management 12/01 Wound of left leg 11/14/2020 Overview (12/05/2020): Added automatically from request for surgery [id number] End-stage renal disease on hemodialysis ([facility] [facility] ) 09/14/2020 Assessment & Plan (04/09/2023 7:04 PM CDT): Cont hd at facility Assessment & Plan (04/03/2023 5:25 PM CDT): Continues on dialysis at the facility. Patient had refused a couple of times last week leading to some altered mental status but seems to be better since he has been back on regular dialysis. Not fluid overloaded Assessment & Plan (03/19/2023 3:48 PM CDT): Conts on hd at facility w rout labs, tolerating it well today Assessment & Plan (03/18/2023 4:45 PM CDT): Continue hd at facility with usual lab protocols Assessment & Plan (03/06/2023 4:14 PM CDT): Continue with in-house dialysis. CMP was stable over the weekend Assessment & Plan (02/28/2023 9:46 AM CDT): Getting hd at facility w rout labs Assessment & Plan (02/08/2022 10:22 AM CDT): Continue Sevelamer. Right arm dialysis graft intact (positive thrill/bruit). Hemodialysis three days weekly. Assessment & Plan (12/06/2021 1:44 PM CDT): Continue weekly hemodialysis. Assessment & Plan (10/27/2021 3:10 PM INJECTION MOLDING SUPERVISOR): Continue hemodialysis weekly. Assessment & Plan (08/07/2021 10:27 AM INJECTION MOLDING SUPERVISOR): Currently on Sevelamer and Ferrous sulfate. Hemodialysis three days weekly. Assessment & Plan (07/14/2021 1:51 PM INJECTION MOLDING SUPERVISOR): Continue Sevelamer and Ferrous sulfate. Assessment & Plan (06/19/2021 1:56 PM CDT): Continue hemodialysis 3 days weekly on Saturday and Saturday. Assessment & Plan (06/08/2021 3:02 PM CDT): Hemodialysis Saturday and Saturdays Assessment & Plan (06/03/2021 11:35 PM CDT): Right arm AV fistula. Continue hemodialysis Saturday and Saturdays. Patient missed dialysis today will get dialysis in a.m. Assessment & Plan (05/31/2021 1:42 PM CDT): Right arm AV fistula. Continue hemodialysis Saturday and Saturdays. Assessment & Plan (05/21/2021 9:20 AM CDT): - Outpatient HD //Sat via right brachiocephalic AV fistula created 02/22/21 - Nephrology consulted for inpatient HD - Right chest tunneled catheter removed in IR on 05/17 - 05/21 f/u pyuria management. Don't need to treat with abx if asymptomatic. Discontinued ceftriaxone. Assessment & Plan (02/23/2021 12:37 PM CDT): - TTS HD via right chest tunneled line now s/p right brachiocephalic AV fistula creation 02/22/21 - Nephrology consult for inpatient HD - Elevated RUE - Pain control - NV checks Assessment & Plan (12/01/2020 10:42 AM CDT): - Nephrology following - Resuming / schedule Assessment & Plan (09/21/2020 8:33 AM INJECTION MOLDING SUPERVISOR): - ESRD on dialysis as of August 2020. Dialysis access via tunneled catheter. Current HD schedule M/W/F. - Consulted renal for iHD; patient to be dialyzed M/W/F - Currently trying to switch home HD units to ease transportation issue with new SNF - Social work discussing with renal coordinator Severe protein-calorie malnutrition (CMS/HCC) Assessment & Plan (05/23/2021 7:38 AM CDT): - BMI 23 - Appreciate nutrition recs. - Nephrovite started. Assessment & Plan (02/24/2021 2:51 PM CDT): - BMI 25 - Nutrition consult: Continue renal, consistent carb diet Ordered Nepro TID. Encouraged the pt to drink them between meals. Continue multivitamin, Folic acid, iron, Renvela. Assessment & Plan (09/15/2020 11:00 AM INJECTION MOLDING SUPERVISOR): - Related to increased needs, chronic illness/injury and wounds - Nutrition consulted - Consistent carb diet. Will allow double portions of meat. - Supplements ordered Foot ulcer due to secondary DM ([facility]) 021 Assessment & Plan (09/21/2020 8:32 AM INJECTION MOLDING SUPERVISOR): Right foot wounds appeared about 1 month ago. Two wounds on plantar surface of his foot with dry eschar. WBC 13, ESR/CRP elevated in ED - Vanc/Cefe (renal dosing) + flagyl stopped 09/17/20 - Xray (-) for osseous erosion - CT with extensive bilateral vascular calcifications and atherosclerosis is partially evaluated on this non-angiographic study. At least 2 ulcers along the plantar aspect of the distal right foot. The lesion adjacent to the head of the fifth metatarsal appears to involve the bone. Extensive subcutaneous edema throughout the bilateral lower extremities. - Blood cultures x2 drawn 09/13, NGTD so far - CXR with no focal consolidation to suggest a pneumonia, CT scan shows bilateral lower lobe groundglass opacities may represent a component of pulmonary edema or an infectious/inflammatory process. Potentially secondary to recent COVID-19 infection - Betadine paint to both ulcerations, cover with nonadherent dressing, wrap with Kerlix - Podiatry consulted for wound care recommendations - OR 09/16 for RLE angiogram, R AT + TPT angioplasty, R peroneal angioplasty, R popliteal artery DCP and R SFA angioplasty and SHAI placement - Pain control with POPM - Non-weight bearing to RLE - Continue aspirin + Plavix daily Atherosclerosis of [place] artery of right lower extremity 09/06/2020 Overview (09/06/2020): Added automatically from request for surgery [id number] Peripheral arterial disease ([facility]) 09/06/2020 Overview (09/06/2020): Added automatically from request for surgery [id number] Assessment & Plan (03/06/2023 4:14 PM CDT): Continue medical management with statin. Patient is status post bilateral amputations for this reason Assessment & Plan (10/03/2021 9:13 AM INJECTION MOLDING SUPERVISOR): Patient to continue aspirin Assessment & Plan (06/03/2021 11:31 PM CDT): s/p Left BKA, right SFA stent/tibial angioplasty (09/2020), RLE angio w poba of peroneal and at (02/24/2021) - Patient p/w worsening right foot wounds (see right foot gangrene) - Plavix stopped. Continue aspirin. CBC Assessment & Plan (05/22/2021 1:23 PM CDT): - s/p Left BKA, right SFA stent/tibial angioplasty (09/2020), RLE angio w poba of peroneal and at (02/24/2021) - Presented with worsening right foot wounds (see right foot gangrene). Now s/p Right BKA - Continue asa, statin Assessment & Plan (02/27/2021 7:43 AM CDT): - Left BKA and right SFA stent/tibial angioplasty (09/2020). - Now with right heel ulcer with eschar that feels fluctuant, and multiple right foot wounds. - LEAs: GEENA not obtainable on the right - Right leg arterial duplex: Patent right sueprficial femoral artery stent. The right posterior tibial waveform is absent at the distal segment - Q4hrs neurovascular checks - OR 02/24 for RLE angio w poba of peroneal and at - Plavix load then daily plavix and ASA - OOB TC Assessment & Plan (12/01/2020 10:12 AM CDT): - s/p left BKA for gangrene 05/2020 and right SFA angio/stent, peroneal, AT, PT plasties 09/[address] Colunga. Now with right lateral foot wound and left lateral thigh wound (BKA ulceration) - Rt. GEENA 0.44 - Arterial duplex with patent right SFA artery stent. Heavily calcified posterior tibial artery, unable to demonstrate focal stenosis. Patent anterior tibial and peroneal arteries - Contiue ASA and Plavix - OR 11/23 for LLE angiogram with DCB to L SFA/pop/profunda, R groin 5F access closed with vascade. Proximal fibular head biopsy performed. - OR 11/24 for RLE angiogram through LEFT groin stick with DCB to the SFA, pop, AT, and DP - Continue aspirin, statin and plavix - OOB to chair Assessment & Plan (09/18/2020 8:47 AM INJECTION MOLDING SUPERVISOR): - s/p left BKA 05/2020. Presents now with RLE wounds (see foot ulcer) - Arterial doppler 08/2020 showed the right dorsalis pedis ankle arteries are non-compressible which is consistent with arterial calcification thus the Ankle/Brachial Index on the right is not obtainable. The right posterior tibial Ankle/Brachial Index is immeasurable which is consistent with more proximal severe arterial occlusive disease on the right. - CTA 08/2020 showed severe stenoses of the superficial femoral artery and popliteal artery with extensive calcification of the runoff vasculature with probable one vessel runoff via a diminutive peroneal artery - OR 09/16 for angiogram + stenting of 2 tibial arteries, popliteal artery and SFA of right leg. - Continue ASA, statin, Plavix 75mg daily Bleeding from the nose 06/25/2020 Assessment & Plan (06/28/2020 10:44 AM CDT): - unclear etiology, likely oxygen use. Patient states this has happened during previous hospitalizations - had very small amount of blood on tissue this am - will likely resume DVT prophylaxis and aspirin tomorrow - hgb stable - continue to monitor, may need ENT assistance if recurs Assessment & Plan (06/27/2020 1:29 PM CDT): - unclear etiology, likely oxygen use. Patient states this has happened during previous hospitalizations - resolved with holding aspirin, lovenox - continue to monitor, may need ENT assistance if recurs Assessment & Plan (06/26/2020 12:02 PM CDT): - unclear etiology, likely oxygen use. Patient states this has happened during previous hospitalizations. - continue to monitor, may need ENT assistance if this persists Assessment & Plan (06/25/2020 2:34 PM CDT): - unclear etiology, likely oxygen use - continue to monitor, may need ENT assistance if this persists Anemia 06/25/2020 Assessment & Plan (06/03/2021 11:39 PM CDT): Status post hospitalization with transfusion of 4 units. Will continue to monitor CBC patient started on Epoetin Assessment & Plan (05/23/2021 7:34 AM CDT): - Transfused 4 units PRBC total this admission, last 05/22 - Start Epoetin per Nephrology Assessment & Plan (12/01/2020 10:29 AM CDT): - 2 units PRBC 11/15 - 1 unit PRBC 11/23, 11/26, 11/29, 11/30 and again 4/1AM - Noted to have large volume oozing from L lateral fibulectomy site; continuing to reinforce dressing - CBC daily Assessment & Plan (06/28/2020 10:44 AM CDT): - iron deficient - Infed, 3u PRBC this adm - hgb 5.9->7.2->7.3->8.3 - guaiac positive, however this may be due to recent epistaxis Assessment & Plan (06/27/2020 1:31 PM CDT): - iron deficient - Infed, 3u PRBC this adm - hgb 5.9->7.2->7.3 - guaiac positive, however this may be due to recent epistaxis Assessment & Plan (06/26/2020 12:01 PM CDT): - iron deficient - Infed, 1 unit PRBC - hgb drop to 5.9 on this AM labs. Likely secondary to prolonged epistaxis 06/24-1024 overnight coupled with underlying anemia - guaiac positive, however this may be due to recent epistaxis - transfuse and follow Assessment & Plan (06/25/2020 2:36 PM CDT): - iron deficient - Infed, 1 unit PRBC - guaiac stools - follow S/P below knee amputation, right 06/23/2020 Assessment & Plan (09/05/2021 12:26 PM INJECTION MOLDING SUPERVISOR): Continue working with PT/OT. Follow up outpatient for prosthetic. Assessment & Plan (08/15/2021 1:43 PM INJECTION MOLDING SUPERVISOR): Continue PT/OT Continue outpatient follow up for prosthetic on 08/21/21 (2pm), 08/28/21 (11am), and 09/06/21 (11am). Assessment & Plan (08/08/2021 12:35 PM INJECTION MOLDING SUPERVISOR): Seen outpatient for prosthetic yesterday and has follow up again 08/21/21 (2pm), 08/28/21 (11am), and 09/06/21 (11am) Assessment & Plan (08/07/2021 10:29 AM INJECTION MOLDING SUPERVISOR): Denies phanthom limb pain. Pain controlled cyclobenzaprine, Acetaminophen, and Gabapentin. Assessment & Plan (08/01/2021 11:53 AM INJECTION MOLDING SUPERVISOR): Continue Aspirin and Gabapentin. Pain well controlled. 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 Assessment & Plan (06/29/2021 1:45 PM CDT): Patient measured for below-knee processing talc and borate supervisor is yesterday and will follow-up for fitting (record changer assembler). Incision well-healed. Continue PT/OT. Continue gabapentin and acetaminophen. Assessment & Plan (06/19/2021 1:55 PM CDT): Patient had follow-up with vascular surgeon. Sutures removed and patient recommended for residual limb processing talc and borate supervisor. Pain well controlled. Continue PT/OT Assessment & Plan (06/08/2021 3:02 PM CDT): Patient unable to tolerate oxycodone due to increased confusion. Discussed with MD and will discontinue oxycodone and changed to [place] to help with postoperative pain. Assessment & Plan (06/06/2021 2:06 PM CDT): Continue incision/wound care instructions. Right BKA done 05/18/2021. Continue oxycodone and Tylenol for pain. PT/OT as tolerated Assessment & Plan (06/03/2021 11:26 PM CDT): Status post hospitalization Right foot gangrene status post right BKA done 05/18/2021. Continue oxycodone and Tylenol for pain. PT/OT as tolerated Assessment & Plan (05/31/2021 1:41 PM CDT): Right foot gangrene status post right BKA done 05/18/2021. Continue oxycodone and Tylenol for pain. 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 05/25 - Will need rehab after this admission as has no family available to help him - working well with PT and OT - SW aware and referrals sent Assessment & Plan (06/28/2020 10:30 AM CDT): -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 05/25 - Will need rehab after this admission as has no family available to help him - PT and OT - SW aware and referrals sent Assessment & Plan (06/27/2020 1:25 PM CDT): -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 05/25 - Will need rehab after this admission as has no family available to help him - PT and OT - SW aware and referrals sent Assessment & Plan (06/26/2020 12:04 PM CDT): -History of left guilnehemiah bka 9/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 9/23 -Will need rehab after this admission as has no family available to help him -PT and OT -SW aware and referrals sent Assessment & Plan (06/25/2020 2:31 PM CDT): -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 9/23 -Will need rehab after this admission as has no family available to help him -PT and OT -SW aware and referrals sent Assessment & Plan (06/24/2020 3:56 PM CDT): -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 9/23 -Will need rehab after this admission as has no family available to help him -PT and OT -SW aware and referrals sent Assessment & Plan (06/23/2020 9:56 AM CDT): 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 9/23 Will need rehab after this admission as has no family available to help him PT and OT Obesity, Class II, BMI 35-39.9, isolated (see ac tual BMI) 06/23/2020 Assessment & Plan (06/23/2020 10:07 AM CDT): Suspect obesity has contributed to chronic medical issues Weight loss would be advised Urinary tract infection 06/19/2020 Assessment & Plan (06/30/2020 10:43 AM CDT): Leukocytosis, urine culture showing Klebsiella pneumoniae - leukocytosis now resolved - ceftriaxone 7 day course completed Need to take mccann out today Assessment & Plan (06/29/2020 9:51 AM CDT): Leukocytosis, urine culture showing Klebsiella pneumoniae - leukocytosis now resolved - ceftriaxone 7 day course completed Assessment & Plan (06/28/2020 10:29 AM CDT): Leukocytosis, urine culture showing Klebsiella pneumoniae - leukocytosis now resolved - ceftriaxone 7 day course completed Assessment & Plan (06/27/2020 1:25 PM CDT): Leukocytosis, urine culture showing Klebsiella pneumoniae - leukocytosis now resolved - ceftriaxone 7 day course completed Assessment & Plan (06/26/2020 12:06 PM CDT): Leukocytosis, urine culture showing Klebsiella pneumoniae - leukocytosis now resolved - ceftriaxone 7 day course completed Assessment & Plan (06/25/2020 2:33 PM CDT): Leukocytosis, urine culture showing Klebsiella pneumoniae - leukocytosis now resolved - ceftriaxone 7 day course completed Assessment & Plan (06/24/2020 4:00 PM CDT): Leukocytosis, urine culture showing Klebsiella pneumoniae - leukocytosis now resolved - ceftriaxone 6/7 days Assessment & Plan (06/23/2020 9:54 AM CDT): Leukocytosis, urine culture showing Klebsiella pneumoniae - leukocytosis now resolved - ceftriaxone 5/7 days Assessment & Plan (06/22/2020 12:00 PM CDT): Leukocytosis, urine culture showing Klebsiella pneumoniae - leukocytosis now resolved - ceftriaxone day 4 of 7 Assessment & Plan (06/21/2020 10:43 AM CDT): Leukocytosis, urine culture showing Klebsiella pneumoniae - ceftriaxone day 3 of 7 Assessment & Plan (06/20/2020 11:45 AM CDT): Leukocytosis, urine culture showing Klebsiella pneumoniae - ceftriaxone day 2 of 7 Pressure ulcer 06/18/2020 Assessment & Plan (06/28/2020 10:43 AM CDT): - appreciate wound nurse consult for right heel ulcer and recommendations - Padded boot for right foot Assessment & Plan (06/27/2020 1:28 PM CDT): - appreciate wound nurse consult for right heel ulcer and recommendations - Padded boot for right foot Assessment & Plan (06/26/2020 12:06 PM CDT): - appreciate wound nurse consult for right heel ulcer and recommendations - Padded boot for right foot Assessment & Plan (06/25/2020 2:32 PM CDT): - appreciate wound nurse consult for right heel ulcer and recommendations - Padded boot for right foot Assessment & Plan (06/24/2020 3:59 PM CDT): - appreciate wound nurse consult for right heel ulcer and recommendations Assessment & Plan (06/23/2020 9:40 AM CDT): - appreciate wound nurse consult for right heel ulcer and recommendations Assessment & Plan (06/22/2020 12:04 PM CDT): - appreciate wound nurse consult for right heel ulcer and recommendations Assessment & Plan (06/21/2020 10:48 AM CDT): - appreciate wound nurse consult for right heel ulcer and recommendations Assessment & Plan (06/20/2020 11:58 AM CDT): - wound consult placed for recent L BKA wound eval and right heel pressure ulcer present on admission Hyperkalemia 05/29/2020 Assessment & Plan (12/01/2020 10:31 AM CDT): - Noted to be intermittently hyperkalemic at times - Has required loklema for management - Monitor daily, managed with HD Assessment & Plan (06/19/2020 7:54 AM CDT): K 5.2 on 06/17 at rehab. Repeat on admission was slightly hemolyzed and 6.1. ECG without peaked T-waves. Improving. Continue aggressive diuresis Assessment & Plan (05/31/2020 11:11 AM CDT): - 2/2 to NATAN, possibly tissue injury in foot. Now improved with several days of Lokelma. Suspect will improved with improved renal function. Cont lasix - Resolved Assessment & Plan (05/30/2020 1:28 PM CDT): - 2/2 to NATAN, possibly tissue injury in foot. Now improved with several days of Lokelma. Suspect will improved with improved renal function. Cont lasix - Resolved Assessment & Plan (05/29/2020 11:01 AM CDT): - 2/2 to NATAN, possibly tissue injury in foot. Now improved with several days of Lokelma. Suspect will improved with improved renal function. Cont lasix Diarrhea 05/20/2020 Assessment & Plan (06/03/2021 11:37 PM CDT): Patient with intermittent loose stools C diff has been negative. Patient is on Lomotil 4 mg q.i.d. that according to patient is not helping. Will also start patient on cholestyramine q.day Assessment & Plan (05/30/2021 9:25 AM CDT): - intermittent runny stools with fecal urgency - C. Diff negative - GI consulted: -started on loperamide 4mg QID, lomotil changed to scheduled 05/29 from PRN, cholestyramine daily, with improvement. -f/u stool cx/ova/parasite/giardia antigen, fecal fat -TSH, TTG nl. IgA elevated -f/u any new GI recs, likely need outpt GI f/u, psb EGD/cscope Assessment & Plan (05/28/2020 9:38 AM CDT): - Diarrhea back again, holding bowel reg, Lokelma - Resolved, currently on imodium 2mg daily Assessment & Plan (05/27/2020 1:12 PM CDT): - Diarrhea back again, holding bowel reg, Lokelma Assessment & Plan (05/25/2020 11:19 AM CDT): - C diff pending, holding loperamide until C diff results. - now with constipation Assessment & Plan (05/21/2020 3:11 PM CDT): - C diff pending, holding loperamide until C diff results. Acute kidney injury superimposed on chronic kidn ey disease 05/20/2020 Assessment & Plan (06/30/2020 10:47 AM CDT): - Earlier this year cr. 1.3, now slowly increasing this year to around 2. Peak this admission 3.7 - Likely cardiorenal component in the setting of volume overload creatine has improved from 3.7 but still remains in in mid 3 range. Not able to determine if this will not be his new baseline will need to continue to follow. Assessment & Plan (06/29/2020 9:56 AM CDT): - Earlier this year cr. 1.3, now slowly increasing this year to around 2. Peak this admission 3.7 - Likely cardiorenal component in the setting of volume overload - slowly improving with diuresis, now 3.21. Likely change to oral diuretics soon Assessment & Plan (06/28/2020 10:42 AM CDT): - Earlier this year cr. 1.3, now slowly increasing this year to around 2. Peak this admission 3.7 - Likely cardiorenal component in the setting of volume overload - slowly improving with diuresis, now 3.09 Assessment & Plan (06/27/2020 1:27 PM CDT): - Earlier this year cr. 1.3, now slowly increasing this year to around 2. Peak this admission 3.7 - Likely cardiorenal component in the setting of volume overload - slowly improving with diuresis, now 3.1 Assessment & Plan (06/26/2020 11:58 AM CDT): -Earlier this year cr. 1.3, now slowly increasing this year to around 2. Peak this admission 3.7 -Likely cardiorenal component in the setting of volume overload -slowly improving with diuresis, now 3.1 Assessment & Plan (06/25/2020 2:04 PM CDT): -Earlier this year cr. 1.3, now slowly increasing this year to around 2. Now 3.52 -Likely cardiorenal component in the setting of volume overload -slowly improving with diuresis Assessment & Plan (06/24/2020 3:24 PM CDT): -Earlier this year cr. 1.3, now slowly increasing this year to around 2. Now 3.52 -Likely cardiorenal component in the setting of volume overload -slowly decreasing with diuresis Assessment & Plan (06/23/2020 9:40 AM CDT): Noted in october 2001 had creatine around 1.3 slowly over this year his creatine ran in 2 range now he is up over mid 3's Suspect related to grossly volume overloaded and cardiorenal syndrome . Continue to monitor with aggressive diuresing Assessment & Plan (06/22/2020 12:04 PM CDT): Cr elevated to 3.44 from baseline in the 2s prior. Given his exam, likely a degree of cardiorenal. Treatment of HF as noted. - renally dose meds - trend BMP - iron level 21, likely inFed infusion this admission when volume status improves Assessment & Plan (06/21/2020 10:45 AM CDT): Cr elevated to 3.44 from baseline in the 2s prior. Given his exam, likely a degree of cardiorenal. Treatment of HF as noted. - renally dose meds - trend BMP - iron level 21, likely inFed infusion this admission when volume status improves Assessment & Plan (06/20/2020 11:55 AM CDT): Cr elevated to 3.44 from baseline in the 2s prior. Given his exam, likely a degree of cardiorenal. Treatment of HF as noted. - renally dose meds - trend BMP - iron level 21, likely inFed infusion this admission Assessment & Plan (06/01/2020 10:34 AM CDT): Unknown true baseline as last labs from 2 yrs ago, but presumably has moderate CKD. Peak Cr 2.85, previously thought to be cardiorenal though unclear at this point. Cr not downtrending - Continue home PO lasix 40mg bid - Continue bicarb supplement for acidosis - strict I&Os, DC mccann - monitor BMP Assessment & Plan (05/31/2020 11:10 AM CDT): Unknown true baseline as last labs from 2 yrs ago, but presumably has moderate CKD. Peak Cr 2.85, previously thought to be cardiorenal though unclear at this point. Cr not downtrending - Continue home PO lasix 40mg bid - Continue bicarb supplement for acidosis - strict I&Os, DC mccann - monitor BMP Assessment & Plan (05/30/2020 1:27 PM CDT): Unknown true baseline as last labs from 2 yrs ago, but presumably has moderate CKD. Peak Cr 2.85, previously thought to be cardiorenal though unclear at this point. Cr not downtrending - Continue home PO lasix 40mg bid - Continue bicarb supplement for acidosis - strict I&Os, DC mccann - monitor BMP Assessment & Plan (05/29/2020 10:57 AM CDT): Unknown true baseline as last labs from 2 yrs ago, but presumably has moderate CKD. Peak Cr 2.85, previously thought to be cardiorenal though unclear at this point. Cr not downtrending - Continue home PO lasix 40mg bid - Continue bicarb supplement for acidosis - strict I&Os, DC mccann - monitor BMP Assessment & Plan (05/28/2020 9:37 AM CDT): with metabolic acidosis, initially felt to be cardiorenal from CHF exacerbation. Switched to home PO lasix yesterday d/t Cr trending up and he appeared mostly euvolemic. Net -2.3L. Repeat Cr stable at 2.84, bicarb stable at 18. Still appears euvolemic. - Continue home PO lasix 40mg bid - Continue bicarb supplement for acidosis - strict I&Os, Mccann in place - monitor BMP Assessment & Plan (05/27/2020 1:11 PM CDT): with metabolic acidosis, initially felt to be cardiorenal from CHF exacerbation. Switched to home PO lasix yesterday d/t Cr trending up and he appeared mostly euvolemic. Net -2.3L. Repeat Cr stable at 2.84, bicarb stable at 18. Still appears euvolemic. - Continue home PO lasix 40mg bid - Continue bicarb supplement for acidosis - strict I&Os, Mccann in place - monitor BMP - d/c Lokelma today Assessment & Plan (05/26/2020 11:50 AM CDT): with metabolic acidosis, initially felt to be cardiorenal from CHF exacerbation. Switched to home PO lasix yesterday d/t Cr trending up and he appeared mostly euvolemic. Net -2.3L. Repeat Cr stable at 2.84, bicarb stable at 18. Still appears euvolemic. - Continue home PO lasix 40mg bid - Continue bicarb supplement for acidosis - strict I&Os, Mccann in place - monitor BMP - Lokelma 10mg BID, low K diet for hyperkalemia Assessment & Plan (05/25/2020 11:19 AM CDT): with metabolic acidosis, initially felt to be cardiorenal from CHF exacerbation. Switched to home PO lasix yesterday d/t Cr trending up and he appeared mostly euvolemic. Net -2.3L. Repeat Cr stable at 2.84, bicarb stable at 18. Still appears euvolemic. - Continue home PO lasix 40mg bid - Continue bicarb supplement for acidosis - strict I&Os, Mccann in place - monitor BMP - Lokelma 10mg BID, low K diet for hyperkalemia Assessment & Plan (05/23/2020 11:39 AM CDT): with metabolic acidosis, initially felt to be cardiorenal from CHF exacerbation. Switched to home PO lasix yesterday d/t Cr trending up and he appeared mostly euvolemic. Net -2.3L. Repeat Cr stable at 2.84, bicarb stable at 18. Still appears euvolemic. - Continue home PO lasix 40mg bid - Continue bicarb supplement for acidosis - strict I&Os, Mccann in place - monitor BMP - whole blood K 5.5 on 05/23, will start low K diet, Lokelma 10g Assessment & Plan (05/22/2020 3:52 PM CDT): with metabolic acidosis, initially felt to be cardiorenal from CHF exacerbation. Switched to home PO lasix yesterday d/t Cr trending up and he appeared mostly euvolemic. Net -2.3L. Repeat Cr stable at 2.84, bicarb stable at 18. Still appears euvolemic. -continue home PO lasix 40mg bid -Continue bicarb supplement for acidosis - strict I&Os, Mccann in place - monitor BMP Assessment & Plan (05/21/2020 3:07 PM CDT): Initially felt to be d/t cardiorenal from CHF exacerbation. Cr has trended up despite IV diuresis 2.35-->2.84. On my exam he appears euvolemic. Net -1.5L yesterday. - will stop IV lasix and restart home PO lasix 40mg bid - bicarb improving 16-->18. Continue bicarb supplement for acidosis - strict I&Os, Mccann in place - monitor BMP First degree AV block 05/20/2020 Assessment & Plan (05/31/2020 11:11 AM CDT): - Monitor on tele -Hold home beta-zena as HR mid 50s off BB Assessment & Plan (05/29/2020 10:58 AM CDT): - Monitor on tele -Hold home beta-zena as HR mid 50s off BB Assessment & Plan (05/27/2020 1:12 PM CDT): - Monitor on tele -Hold home beta-zena Assessment & Plan (05/21/2020 3:12 PM CDT): - Monitor on tele -Hold home beta-zena Acute on chronic combined sy stolic and diastolic congestive heart failure ([facility]) 05/19/2020 Assessment & Plan (07/14/2021 1:52 PM 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 Lactate low on admission and patient is warm and hypertensive. Dobutamine initiated to assist with diuresis Carvedilol on hold with aggressive diuresing with dobutamine - currently not resumed euvolemic on exam with 62 pounds down from admission weight started on oral lasix 80 mg bid Blood pressure at goal : continue hydralazine 100 mg tid, - blood pressure remains above goal, hydralazine increased to 100mg tid, isordil 40 tid 06/23 - - TTE showing LVEF 34%, pulmonary hypertension and grade II diastolic dysfunction - bed weights, strict IO Assessment & Plan (06/29/2020 9:57 AM CDT): Anasarca and HF symptoms. Lactate low on admission and patient is warm and hypertensive. Dobutamine initiated to assist with diuresis - holding coreg with recent dobutamine - continue amlodipine - continues to have good UOP off of dobutamine (4L), renal function stable - bedscale weights down 60lb from admission - continue lasix infusion at 10 mg/hr for now, although anticipate change to oral diuretics soon - blood pressure remains above goal, hydralazine increased to 100mg tid, isordil 40 tid 06/23 - will resume low dose coreg today - TTE showing LVEF 34%, pulmonary hypertension and grade II diastolic dysfunction - bed weights, strict IO Assessment & Plan (06/28/2020 10:42 AM CDT): Anasarca and HF symptoms. Lactate low on admission and patient is warm and hypertensive. Dobutamine initiated to assist with diuresis - holding coreg with recent dobutamine - continue amlodipine - continues to have good UOP off of dobutamine (3.4L), renal function stable - continue lasix infusion at 10 mg/hr - potassium chloride 40 mEq po X 2 for serum K of 3.6 and ongoing diuresis - blood pressure remains above goal, hydralazine increased to 100mg tid, isordil 40 tid 06/23 - TTE showing LVEF 34%, pulmonary hypertension and grade II diastolic dysfunction - bed weights, strict IO Assessment & Plan (06/27/2020 1:24 PM CDT): Anasarca and HF symptoms. Lactate low on admission and patient is warm and hypertensive. Dobutamine initiated to assist with diuresis - holding coreg with recent dobutamine - continue amlodipine - stopping dobutamine - continue lasix infusion at 10 mg/hr, robust UOP - blood pressure remains above goal, hydralazine increased to 100mg tid, isordil 40 tid 06/23 - TTE showing LVEF 34%, pulmonary hypertension and grade II diastolic dysfunction - bed weights, strict IO--if this fails, will do daily Azucena lift weights Assessment & Plan (06/26/2020 11:58 AM CDT): Anasarca and HF symptoms. Lactate low on admission and patient is warm and hypertensive. Dobutamine initiated to assist with diuresis - holding coreg while on dobutamine - continue amlodipine - continue dobutamine drip for now - continue lasix infusion at 10 mg/hr, robust UOP - blood pressure remains above goal, hydralazine increased to 100mg tid, isordil 40 tid 06/23 - TTE showing LVEF 34%, pulmonary hypertension and grade II diastolic dysfunction - bed weights, strict IO--if this fails, will do daily Azucena lift weights Assessment & Plan (06/25/2020 2:06 PM CDT): Anasarca and HF symptoms. Lactate low on admission and patient is warm and hypertensive. Dobutamine initiated to assist with diuresis - holding coreg while on dobutamine - continue amlodipine - continue dobutamine drip for now - continue lasix infusion at 10 mg/hr, robust UOP - blood pressure remains above goal, hydralazine increased to 100mg tid, isordil 40 tid y1 - TTE showing LVEF 34%, pulmonary hypertension and grade II diastolic dysfunction - bed weights, strict IO--if this fails, will do daily Azucena lift weights Assessment & Plan (06/24/2020 3:34 PM CDT): Anasarca and HF symptoms. Lactate low on admission and patient is warm and hypertensive. Dobutamine initiated to assist with diuresis - holding coreg while on dobutamine - continue amlodipine - continue dobutamine drip for now - continue lasix gtt at 10/hr, increased UOP after diuril - Continues to have robust UOP - blood pressure remains above goal, hydralazine increased to 100mg tid, isordil 40 tid yesterday - TTE showing LVEF 34%, pulmonary hypertension and grade II diastolic dysfunction - bed weights, strict IO--if this fails, will do daily Azucena lift weights Assessment & Plan (06/23/2020 9:21 AM CDT): Patient grossly volume overloaded : systolic, diastolic dysfunction with RV failure and pulmonary hypertension with ef 34 % Dobutamine drip started to augment diuresing : continue dobutamine - felt to be only used in hospital for diuresing Continue lasix drip 10 mg/hour : diuresised 4.5 liters yesterday and weight down 23 pounds . Currently tolerating indwelling catheter at this time Continue isosorbide 40 mg tid , hydralazine 100 mg tid , Carvedilol on hold with dobutamine drip Assessment & Plan (06/22/2020 11:58 AM CDT): Anasarca and HF symptoms. Lactate is low on admission and patient is warm and hypertensive. Dobutamine initiated to assist with diuresis - holding coreg while on dobutamine - continue amlodipine - continue dobutamine drip for now - continue lasix gtt at 10/hr, increased UOP after diuril - >5L UOP, weight down 5lb from yesterday/16lb from adm - blood pressure remains above goal, hydralazine increased to 100mg tid, isordil 40 tid yesterday - TTE showing LVEF 34%, pulmonary hypertension and grade II diastolic dysfunction - bed weights, strict IO--if this fails, will do daily Azucena lift weights - Mccann catheter leaking last evening, causing great deal of discomfort and removed this am - nursing unable to place condom cath, patient unable to use urinal due to severe scrotal edema, refusing Mccann at this time Assessment & Plan (06/21/2020 10:42 AM CDT): Anasarca and HF symptoms. Lactate is low on admission and patient is warm and hypertensive. Dobutamine initiated to assist with diuresis - holding coreg while on dobutamine - continue amlodipine - continue dobutamine drip for now - continue lasix gtt at 10/hr, increased UOP after diuril - 4.7L UOP, weight down 3lb from yesterday/11lb from adm - blood pressure remains above goal, hydralazine increased to 75mg tid, isordil 20 tid yesterday - TTE this am showing LVEF 34%, pulmonary hypertension and grade II diastolic dysfunction - bed weights, strict IO--if this fails, will do daily Azucena lift weights Assessment & Plan (06/20/2020 11:38 AM CDT): Anasarca and HF symptoms. Lactate is low on admission and patient is warm and hypertensive. Dobutamine initiated to assist with diuresis - holding coreg while on dobutamine - continue amlodipine - continue lasix gtt at 10/hr, increased UOP after diuril - blood pressure remains above goal, hydralazine increased to 75mg tid, isordil 20 tid - TTE this am showing LVEF 34%, pulmonary hypertension and grade II diastolic dysfunction - bed weights, strict IO--if this fails, will do daily Azucena lift weights Assessment & Plan (06/01/2020 10:34 AM CDT): Exacerbated on presentation, now appears euvolemic. TTE in 10/2017 with EF 35- 40%, mild LVE with mild global hypokinesis, G3DD, est PASP 40. Repeat TTE here with mod decreased LV systolic function w/ EF 34%, akinetic inferior, inferoapical and inferolateral mazariegos. Modsevere RV dilatation w/ moderate global RV hypok. G2DD, est PASP 60. - continue home PO lasix 40 bid - carvedilol held d/t 1st degree HB on tele w/ very prolonged NV interval and resting bradycardia to mid 50-60s - DC mccann - daily weights, fluid restrict, low-sodium, potassium diet - on tele Assessment & Plan (05/31/2020 11:10 AM CDT): Exacerbated on presentation, now appears euvolemic. TTE in 10/2017 with EF 35- 40%, mild LVE with mild global hypokinesis, G3DD, est PASP 40. Repeat TTE here with mod decreased LV systolic function w/ EF 34%, akinetic inferior, inferoapical and inferolateral mazariegos. Modsevere RV dilatation w/ moderate global RV hypok. G2DD, est PASP 60. - continue home PO lasix 40 bid - carvedilol held d/t 1st degree HB on tele w/ very prolonged NV interval and resting bradycardia to mid 50-60s - DC mccann - daily weights, fluid restrict, low-sodium, potassium diet - on tele Assessment & Plan (05/30/2020 1:27 PM CDT): Exacerbated on presentation, now appears euvolemic. TTE in 10/2017 with EF 35- 40%, mild LVE with mild global hypokinesis, G3DD, est PASP 40. Repeat TTE here with mod decreased LV systolic function w/ EF 34%, akinetic inferior, inferoapical and inferolateral mazariegos. Modsevere RV dilatation w/ moderate global RV hypok. G2DD, est PASP 60. - continue home PO lasix 40 bid - carvedilol held d/t 1st degree HB on tele w/ very prolonged NV interval and resting bradycardia to mid 50s, consider restarting - on Entresto 49-51 BID at home, holding currently d/t worsening kidney status, can likely restart soon. - DC mccann - daily weights, fluid restrict, low-sodium diet - on tele Assessment & Plan (05/29/2020 10:59 AM CDT): Exacerbated on presentation, now appears euvolemic. TTE in 10/2017 with EF 35- 40%, mild LVE with mild global hypokinesis, G3DD, est PASP 40. Repeat TTE here with mod decreased LV systolic function w/ EF 34%, akinetic inferior, inferoapical and inferolateral mazariegos. Modsevere RV dilatation w/ moderate global RV hypok. G2DD, est PASP 60. - continue home PO lasix 40 bid - carvedilol held d/t 1st degree HB on tele w/ very prolonged NV interval and resting bradycardia to mid 50s, consider restarting - on Entresto 49-51 BID at home, holding currently d/t worsening kidney status, can likely restart soon. - DC mccann - daily weights, fluid restrict, low-sodium diet - on tele Assessment & Plan (05/27/2020 1:11 PM CDT): Now appears euvolemic. TTE in 10/2017 with EF 35-40%, mild LVE with mild global hypokinesis, G3DD, est PASP 40. Repeat TTE here with mod decreased LV systolic function w/ EF 34%, akinetic inferior, inferoapical and inferolateral mazariegos. Modsevere RV dilatation w/ moderate global RV hypok. G2DD, est PASP 60. - continue home PO lasix 40 bid - carvedilol held d/t 1st degree HB on tele w/ very prolonged NV interval, consider restarting - on Entresto 49-51 BID at home, holding currently d/t worsening kidney status - Mccann in place, strict I&Os - daily weights, fluid restrict, low-sodium diet - on tele Assessment & Plan (05/26/2020 11:50 AM CDT): Now appears euvolemic. TTE in 10/2017 with EF 35-40%, mild LVE with mild global hypokinesis, G3DD, est PASP 40. Repeat TTE here with mod decreased LV systolic function w/ EF 34%, akinetic inferior, inferoapical and inferolateral mazariegos. Modsevere RV dilatation w/ moderate global RV hypok. G2DD, est PASP 60. - continue home PO lasix 40 bid - carvedilol held d/t 1st degree HB on tele w/ very prolonged NV interval, consider restarting - on Entresto 49-51 BID at home, holding currently d/t worsening kidney status - Mccann in place, strict I&Os - daily weights, fluid restrict, low-sodium diet - on tele Assessment & Plan (05/23/2020 11:39 AM CDT): Now appears euvolemic. TTE in 10/2017 with EF 35-40%, mild LVE with mild global hypokinesis, G3DD, est PASP 40. Repeat TTE here with mod decreased LV systolic function w/ EF 34%, akinetic inferior, inferoapical and inferolateral mazariegos. Modsevere RV dilatation w/ moderate global RV hypok. G2DD, est PASP 60. - continue home PO lasix 40 bid - carvedilol held d/t 1st degree HB on tele w/ very prolonged NV interval. Restart if able. - on Entresto 49-51 BID at home, holding currently d/t worsening kidney status - Mccann in place, strict I&Os - daily weights, fluid restrict, low-sodium diet - on tele Assessment & Plan (05/22/2020 4:18 PM CDT): Now appears euvolemic. TTE in 10/2017 with EF 35-40%, mild LVE with mild global hypokinesis, G3DD, est PASP 40. Repeat TTE here with mod decreased LV systolic function w/ EF 34%, akinetic inferior, inferoapical and inferolateral mazariegos. Modsevere RV dilatation w/ moderate global RV hypok. G2DD, est PASP 60. - continue home PO lasix 40 bid - carvedilol held d/t 1st degree HB on tele w/ very prolonged NV interval. Restart if able. - on Entresto 49-51 BID at home, holding currently d/t worsening kidney status - Mccann in place, strict I&Os - daily weights, fluid restrict, low-sodium diet - on tele Assessment & Plan (05/21/2020 3:11 PM CDT): Now appears euvolemic. TTE in 10/2017 with EF 35-40%, mild LVE with mild global hypokinesis, G3DD, est PASP 40. Repeat TTE today with mod decreased LV systolic function w/ EF 34%, akinetic inferior, inferoapical and inferolateral mazariegos. Modsevere RV dilatation w/ moderate global RV hypok. G2DD, est PASP 60. - stop IV lasix and continue home PO lasix 40 bid - Mccann in place, strict I&Os - daily weights, fluid restrict, low-sodium diet - holding home Coreg d/t heart block - on Entresto 49-51 BID at home, holding currently d/t worsening kidney status - on tele Assessment & Plan (05/19/2020 9:20 AM CDT): - BNP [id number] - Restart home carvedilol - Diuresis 2017 ECHO Results: - EF 35-40 % - Moderate global LV hypokinesis - Mild global RV hypokinesis Metabolic acidosis 05/19/2020 Assessment & Plan (06/22/2020 11:58 AM CDT): Very mild elevation of anion gap at 14 on admission. Lactate is low at 0.5. Glucose is 150, so DKA is less likely. He could have an RTA, as well as CKD as a contributor. He is also taking cholestyramine, which may exacerbate, held on admission - continue to monitor Assessment & Plan (06/21/2020 10:43 AM CDT): Very mild elevation of anion gap at 14 on admission. Lactate is low at 0.5. Glucose is 150, so DKA is less likely. He could have an RTA, as well as CKD as a contributor. He is also taking cholestyramine, which may exacerbate, held on admission - continue to monitor Assessment & Plan (06/20/2020 11:40 AM CDT): Very mild elevation of anion gap at 14 on admission. Lactate is low at 0.5. Glucose is 150, so DKA is less likely. He could have an RTA, as well as CKD as a contributor. He is also taking cholestyramine, which may exacerbate, held on admission - continue to monitor Assessment & Plan (06/01/2020 10:35 AM CDT): Likely d/t renal failure and foot infection. - Improved PO Bicarb, cont 650 BID for now but may be able to stop at dc - will stop bicarb on d/c Assessment & Plan (05/31/2020 11:11 AM CDT): Likely d/t renal failure and foot infection. - Improved PO Bicarb, cont 650 BID for now but may be able to stop at dc Assessment & Plan (05/30/2020 1:28 PM CDT): Likely d/t renal failure and foot infection. - Improved PO Bicarb, cont 650 BID for now but may be able to stop at dc Assessment & Plan (05/29/2020 10:55 AM CDT): Likely d/t renal failure and foot infection. - Improved PO Bicarb, cont 650 BID for now but may be able to stop at dc Assessment & Plan (05/28/2020 9:39 AM CDT): Likely d/t renal failure. - Bicarb supplement 650 BID Assessment & Plan (05/27/2020 1:12 PM CDT): Likely d/t renal failure. - Bicarb supplement 1300 BID Assessment & Plan (05/26/2020 11:49 AM CDT): Likely d/t renal failure. - Bicarb supplement 1300 BID Assessment & Plan (05/23/2020 11:40 AM CDT): Likely d/t renal failure. - Bicarb supplement 1300 BID Assessment & Plan (05/22/2020 4:21 PM CDT): Likely d/t renal failure. - Bicarb supplement 650 BID Assessment & Plan (05/21/2020 3:22 PM CDT): Bicarb 15 on admission, improved to 18 on transfer out of ICU. Likely d/t renal failure. 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 - Abx stopped in SICU s/p amputation given source control and no evidence of osteo - F/u surgical pathology (in process) - wound vac management per surgical services - monitor for evidence of infection, restart abx as needed - temporary prosthesis/Ampushield placed 05/27 - NWB LLE 6 weeks - Prevena wound vac on ideally for 2 weeks (till 06/09) Assessment & Plan (05/31/2020 11:11 AM CDT): 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 - Abx stopped in SICU s/p amputation given source control and no evidence of osteo - F/u surgical pathology (in process) - wound vac management per surgical services - monitor for evidence of infection, restart abx as needed - temporary prosthesis/Ampushield placed 05/27 - NWB LLE 6 weeks Assessment & Plan (05/30/2020 1:27 PM CDT): 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 - Abx stopped in SICU s/p amputation given source control and no evidence of osteo - F/u surgical pathology (in process) - wound vac management per surgical services - monitor for evidence of infection, restart abx as needed - temporary prosthesis/Ampushield placed 05/27 - NWB LLE 6 weeks Assessment & Plan (05/29/2020 10:51 AM CDT): 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 Vascular and Plastics following. 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 Vascular and Plastics following. 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 Vascular and Plastics following. 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 Vascular and Plastics following. - Abx stopped in SICU s/p amputation given source control and no evidence of osteo - F/u surgical pathology (in process) - Per Plastics, OR next week for definitive BKA 05/25 - wound vac management per surgical services -monitor for evidence of infection, restart abx as needed. 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 Vascular and Plastics following. - Abx stopped in SICU s/p amputation given source control and no evidence of osteo. - F/u surgical pathology (in process) - Per Plastics, OR next week for definitive BKA 05/25 - wound vac management per surgical services -monitor for evidence of infection, restart abx as needed. Assessment & Plan (05/19/2020 9:24 AM CDT): - S/P L BKA 05/19 @ OSH - No indication for further antibiotics Ischemia of left lower extremity 05/18/2020 Overview (05/19/2020): Added automatically from request for surgery [id number] Assessment & Plan (02/28/2023 9:46 AM CDT): On medical mgt, sp amps Pseudophakia of left eye 10/15/2019 Overview (04/24/2020): s/p CEIOL 02/24/20, target plano Assessment & Plan (05/26/2020 8:03 PM CDT): S/p CEIOL OS [address] May [id number] 16.0 Assessment & Plan (02/25/2020 10:11 AM CDT): POD1 Extraction Cataract - Phacoemulsification And Lens Implant-complex - Left - doing great considering high energy phaco yesterday Postoperative instructions were given. The patient is to use: Moxifloxacin QID X 1 week Prednisolone Acetate 1% QID Patient is to wear the shield at bedtime X 1 week. Signs, symptoms of retinal detachment, tear, hole, and endophthalmitis were reviewed and the patient is to call immediately for concerns. We discussed that things should improve until they stabilize. Should there be any worsening of pain, vision, or redness the patient is to call. Follow-up 1 week or sooner prn issues. For other eye, schedule for phaco in about 6 weeks: plano, monofocal Age-related nuclear cataract of right eye 2019 Assessment & Plan (05/26/2020 8:04 PM CDT): The patient understands the risks, benefits, alternatives and wishes to proceed with cataract surgery. We discussed the target and the patient elects target plano. We discussed toric and multifocal lens options as well as laser assisted wounds however I prefer a manual technique here. The patient understands glasses are a possibility and is comfortable proceeding with a monofocal lens. Book Phaco/IOL/ right eye. IOLM per Dr. May Assessment & Plan (04/24/2020 6:55 PM CDT): The patient understands the risks, benefits, alternatives and wishes to proceed with cataract surgery. We discussed the target and the patient elects target . We discussed toric and multifocal lens options as well as laser assisted wounds however I prefer a manual technique here. The patient understands glasses are a possibility and is comfortable proceeding with a lens. Book Phaco/IOL/ right eye. Assessment & Plan (09/22/2019 3:29 PM INJECTION MOLDING SUPERVISOR): New cataract evaluation today Mature cataract OS The patient understands the risks, benefits, alternatives and wishes to proceed with cataract surgery. We discussed the target and the patient elects target plano. We discussed toric and multifocal lens options as well as laser assisted wounds however I prefer a manual technique here. The patient understands glasses are a possibility and is comfortable proceeding with a monofocal lens. Book Phaco/IOL/iris hooks/trypan left eye. Schedule, OD 6 weeks later plano, monofocal IOLM/Bscan Atrial flutter (CMS/HCC) 11/08/2017 Assessment & Plan (06/30/2020 10:44 AM CDT): History of post-op AF - Not on AC on admission, ECG on admission with NSR with severely prolonged NV - as noted above, resuming low dose coreg - telemetry Assessment & Plan (06/29/2020 9:55 AM CDT): History of post-op AF - Not on AC on admission, ECG on admission with NSR with severely prolonged NV - as noted above, resuming low dose coreg - telemetry Assessment & Plan (06/28/2020 10:30 AM CDT): History of post-op AF - Not on AC on admission, ECG on admission with NSR with severely prolonged NV - Holding coreg for now while on dobutamine - telemetry Assessment & Plan (06/27/2020 1:26 PM CDT): History of post-op AF - Not on AC on admission, ECG on admission with NSR with severely prolonged NV - Holding coreg for now while on dobutamine - telemetry Assessment & Plan (06/26/2020 12:02 PM CDT): History of post-op AF - Not on AC on admission, ECG on admission with NSR with severely prolonged NV - Holding coreg for now while on dobutamine - telemetry Assessment & Plan (06/25/2020 2:28 PM CDT): History of post-op AF - Not on AC on admission, ECG on admission with NSR with severely prolonged NV - Holding coreg for now while on dobutamine - telemetry Assessment & Plan (06/24/2020 3:35 PM CDT): History of post-op AF - Not on AC on admission, ECG on admission with NSR with severely prolonged NV - Holding coreg for now while on dobutamine - telemetry Assessment & Plan (06/23/2020 9:22 AM CDT): History of post-op AF - Not on AC on admission, ECG on admission with NSR with severely prolonged NV - Holding coreg for now while on dobutamine - telemetry Assessment & Plan (06/22/2020 12:01 PM CDT): History of post-op AF - Not on AC on admission, ECG on admission with NSR with severely prolonged NV - Holding coreg for now while on dobutamine - telemetry Assessment & Plan (06/21/2020 10:44 AM CDT): History of post-op AF - Not on AC on admission, ECG on admission with NSR with severely prolonged NV - Holding coreg for now while on dobutamine - telemetry Assessment & Plan (06/20/2020 11:49 AM CDT): History of post-op AF - Not on AC on admission, ECG on admission with NSR with severely prolonged NV - Holding coreg for now while on dobutamine - telemetry History of coronary artery bypass surgery 2017 Dyspnea on exertion 11/08/2017 Assessment & Plan (06/26/2020 12:04 PM CDT): -Likely heart failure, but living in rehab facility, unable to stand - COVID negative Assessment & Plan (06/25/2020 2:31 PM CDT): -Likely heart failure, but living in rehab facility, unable to stand - COVID negative Assessment & Plan (06/21/2020 10:45 AM CDT): Likely heart failure, but living in rehab facility, unable to stand - COVID negative Assessment & Plan (06/20/2020 11:54 AM CDT): Likely heart failure, but living in rehab facility, unable to stand - COVID negative Left ventricular dysfunction 08/29/2017 Osteomyelitis 02/17/2015 Assessment & Plan (05/29/2021 7:46 AM CDT): Patient now has multiple necrotic areas c/w gangrene to his right lower extremity despite an extended course of IV antibiotics. There is also a new area of concern medially that is likely to follow the same progression. It is clear that IV antibiotics are no longer providing any additional benefit, and stepping down to oral antibiotics to extend therapy would not achieve the same degree of penetration that he is already receiving on IV antibiotics. We concur with podiatry that he needs surgical intervention and should strongly consider amputation. Stop IV antibiotics. PICC line discontinued. Patient should follow up with vascular surgery as planned. RTC PRN Assessment & Plan (03/31/2021 9:21 AM CDT): - Remains on antibiotic therapy without noted adverse effects. He does still have several wounds to right foot with no signs of acute infection. Also has a new wound between toes 2-3 that is superficial but does have mild erythema surrounding. No systemic signs/symptoms of infection - Given his vascular disease and new wound it was decided to extend his antibiotic therapy to 8 weeks. He will continue daptomycin, cefepime, and flagyl until next ID follow up. Orders written to SNF, clinic RN to contact dialysis center. Will reassess wounds in 3 weeks and hopefully be able to stop therapy at that time. He will also follow up with podiatry in the interim. - Continue weekly CBC, CMP, and CK while on antibiotic therapy - Discussed with patient the rational for treatment, culture results, risk of recurrent infection, signs/symptoms of recurrent infection, and to contact ID clinic with any questions or concerns Assessment & Plan (02/27/2021 12:21 PM CDT): S/p balloon angioplasty of R anterior tibial artery and TP trunk and peroneal artery. No plan for wound debridement of R lateral/dorsal foot wounds. ESR/CRP 93/94. Imaging suggestive of OM of the R 5th TMA site. Since he had been on broad antibioitcs with cefe, flagyl and dapto for a few days, bone bx thought to likely be low yield. - XR (02/23): R 5th TMA with mildly increasing permeative change and periosteal reaction c/f ongoing OM Plan: - Continue on cefepime 2g IV post HD T, TH, SAT - Continue on daptomycin 8mg/kg post HD T, TH - Continue on daptomycin 10mg/kg post HD SAT - Continue on metronidazole 500mg PO q8h - CBC with diff, CMP and CPK weekly. - ID will sign off. Please call with questions/concerns. Assessment & Plan (01/19/2021 12:44 PM CDT): - Pt's abx were stopped by dialysis after 6 weeks. He did complete 6 week course of daptomcyin after HD for L stump and R foot osteomyelitis, s/p multiple I&D, Cx + MRSA, Enterobacter cloacae, with no retained hardware. - Pt remains under wound care at [facility]. - Discussed with patient the rational for treatment, culture results, risk of recurrent infection, signs/symptoms of recurrent infection, and to contact ID clinic with any questions or concerns. Assessment & Plan (06/30/2020 10:47 AM CDT): S/p L BKA - Continue daily wound care - PT/OT eval and treat Patient [facility]. Assessment & Plan (06/29/2020 9:57 AM CDT): S/p L BKA - Continue daily wound care - PT/OT eval and treat - Discussed with patient has no family to help with his care at home will probably need to be evaluated for rehabilitation Assessment & Plan (06/28/2020 10:41 AM CDT): S/p L BKA - Continue daily wound care - PT/OT eval and treat - Discussed with patient has no family to help with his care at home will probably need to be evaluated for rehabilitation Assessment & Plan (06/27/2020 1:27 PM CDT): S/p L BKA - Continue daily wound care - PT/OT eval and treat - Discussed with patient has no family to help with his care at home will probably need to be evaluated for rehabilitation Assessment & Plan (06/26/2020 12:05 PM CDT): S/p L BKA - Continue daily wound care - PT/OT eval and treat - Discussed with patient has no family to help with his care at home will probably need to be evaluated for rehabilitation Assessment & Plan (06/25/2020 2:32 PM CDT): S/p L BKA - Continue daily wound care - PT/OT eval and treat -Discussed with patient has no family to help with his care at home will probably need to be evaluated for rehabilitation Assessment & Plan (06/24/2020 3:59 PM CDT): S/p L BKA - Continue daily wound care - PT/OT eval and treat -Discussed with patient has no family to help with his care at home will probably need to be evaluated for rehabilitation Assessment & Plan (06/23/2020 9:24 AM CDT): S/p L BKA - Continue daily wound care - PT/OT eval and treat Discussed with patient has no family to help with his care at home will probably need to be evaluated for rehabilitation Assessment & Plan (06/22/2020 12:04 PM CDT): S/p L BKA - Continue daily wound care - PT/OT eval and treat Assessment & Plan (06/21/2020 10:45 AM CDT): S/p L BKA - Continue daily wound care - PT/OT eval and treat Assessment & Plan (06/20/2020 11:52 AM CDT): S/p L BKA - Continue daily wound care Obesity 01/03/2015 Diabetes mellitus type II, uncontrolled ([facility] ) 08/18/2013 Overview (05/26/2020): May 2020: C-peptide 9.4% Assessment & Plan (05/19/2021 9:55 AM CDT): - HgbA1c 5.6 Home regimen: Lantus 8 units, tradjenta. - Accu checks QID + SSI - Renal carb consistent diet Assessment & Plan (02/28/2021 8:16 AM CDT): - HgbA1c 5.6 Home regimen: Lantus 8 units, tradjenta. - SSI - Accu checks QID Assessment & Plan (11/17/2020 9:35 AM CDT): - Home regimen: Lantus 8 units, tradjenta. - SSI, and Lantus - Accu checks QID Assessment & Plan (09/15/2020 10:36 AM INJECTION MOLDING SUPERVISOR): - Hgb A1c 8.5% 05/2020, 5.5% 09/2019 - Accu checks - Basal/bolus insulin - Carb consistent, renal diet Assessment & Plan (06/30/2020 10:45 AM CDT): HgB A1c 8.5 - overall good inpatient control: 138-175 - Continue tradjenta, sliding scale insulin - carbohydrate consistent diet Assessment & Plan (06/29/2020 9:57 AM CDT): HgB A1c 8.5 - overall good inpatient control - Continue tradjenta, sliding scale insulin - carbohydrate consistent diet Assessment & Plan (06/28/2020 10:41 AM CDT): HgB A1c 8.5 - overall good inpatient control - Continue tradjenta, sliding scale insulin - carbohydrate consistent diet Assessment & Plan (06/27/2020 1:27 PM CDT): HgB A1c 8.5 - overall good inpatient control - Continue tradjenta, sliding scale insulin - carbohydrate consistent diet Assessment & Plan (06/26/2020 12:03 PM CDT): HgB A1c 8.5 - overall good inpatient control - Continue tradjenta, sliding scale insulin - carbohydrate consistent diet Assessment & Plan (06/25/2020 2:30 PM CDT): HgB A1c 8.5 - overall good inpatient control - Continue tradjenta, sliding scale insulin - carbohydrate consistent diet Assessment & Plan (06/24/2020 3:53 PM CDT): HgB A1c 8.5 - overall good inpatient control - Continue tradjenta, sliding scale insulin - carbohydrate consistent diet Assessment & Plan (06/23/2020 9:23 AM CDT): HgB A1c 8.5 - overall good inpatient control: 132-166 - Continue tradjenta, sliding scale insulin - carbohydrate consistent diet Assessment & Plan (06/22/2020 12:04 PM CDT): HgB A1c 8.5 - overall good inpatient control - Continue tradjenta, sliding scale insulin - carbohydrate consistent diet Assessment & Plan (06/21/2020 10:44 AM CDT): HgB A1c 8.5 - Continue tradjenta, sliding scale insulin - carbohydrate consistent diet Assessment & Plan (06/20/2020 11:51 AM CDT): HgB A1c 8.5 - Continue tradjenta, sliding scale insulin - carbohydrate consistent diet Assessment & Plan (06/01/2020 10:34 AM CDT): Hgb A1c 8.5%. - Endocrine following - Lantus 8U nightly + MDSSI + qHS + 2am. - monitor glucose Assessment & Plan (05/31/2020 11:11 AM CDT): Hgb A1c 8.5%. - Endocrine following - Lantus 10U nightly + MDSSI + qHS + 2am. - monitor glucose Assessment & Plan (05/30/2020 1:27 PM CDT): Hgb A1c 8.5%. - Endocrine following - Lantus 10U nightly + MDSSI + qHS + 2am. - monitor glucose Assessment & Plan (05/29/2020 10:58 AM CDT): Hgb A1c 8.5%. - Endocrine following - Lantus 10U nightly + MDSSI + qHS + 2am. - monitor glucose Assessment & Plan (05/27/2020 1:11 PM CDT): Hgb A1c 8.5%. - Endocrine following - Lantus 10U nightly + MDSSI + qHS + 2am. - monitor glucose Assessment & Plan (05/26/2020 10:20 AM CDT): Hgb A1c 8.5%. - Endocrine following - Lantus 10U nightly + MDSSI + qHS + 2am. - monitor glucose Assessment & Plan (05/27/2020 2:13 PM CDT): Glucoses stable in the low to mid 100s, doing reasonably well with improved appetite and activity. C-peptide 9.4%, indicative of type 2 diabetes. Recommendation: - continue Lantus 10 units daily at bedtime - continue Humalog sliding scale Discharge recommendations: - likely to transition from Lantus back to Toujeo at 10 units daily - likely to transition from Humalog back to Fiasp, same as current doses - follow-up with his auto phone installer at [facility] for long-term therapy decisions. Consider GLP-1 agonist in the future. Assessment & Plan (05/22/2020 4:19 PM CDT): Hgb A1c 8.5%. - Endocrine following - Lantus 12U nightly + MDSSI + qHS + 2am. - monitor glucose Assessment & Plan (05/21/2020 3:11 PM CDT): Hgb A1c 8.5%. - Endocrine following - Lantus 12U nightly + MDSSI + qHS + 2am - monitor glucose Assessment & Plan (04/09/2018 2:22 PM CDT): Needs more basal and mealtime insulin, maintaining a good margin of safety and better monitoring ED (erectile dysfunction) of organic origin 05/2013 Vitamin D deficiency 11/05/2012 Assessment & Plan (04/09/2018 2:22 PM CDT): Continue supplement CAD (coronary artery disease) 12/25/2011 Assessment & Plan (05/25/2021 10:21 AM CDT): - s/p CABG [address] Sae WALKER-LAD, sequential SVG PDA and rPLV, left-radial to LCx - Continue home asa, statin, metoprolol Assessment & Plan (02/22/2021 10:40 AM CDT): - s/p CABG [address] Sae CRUZLAD, sequential SVG PDA and rPLV, left-radial to LCx - Continue home asa, statin, metoprolol, plavix Assessment & Plan (11/18/2020 2:44 PM CDT): - s/p CABG [address] Sae CRUZLAD, sequential SVG PDA and rPLV, left-radial to LCx - Continue home asa, statin, metoprolol, plavix Assessment & Plan (09/14/2020 11:01 AM INJECTION MOLDING SUPERVISOR): - s/p CABG [address] Sae BEST, sequential SVG PDA and rPLV, left-radial to LCx - Continue home medication regimen Assessment & Plan (06/30/2020 10:44 AM CDT): S/P 3v CABG 2018 - No anginal complaints - Continue medical treatment of statin, resume aspirin 81mg today Assessment & Plan (06/29/2020 9:53 AM CDT): S/P 3v CABG 2018 - No anginal complaints - Continue medical treatment of statin, resume aspirin 81mg today - will resume low dose coreg (3.125 bid) Assessment & Plan (06/28/2020 10:30 AM CDT): S/P 3v CABG 2018 - No anginal complaints - Continue medical treatment of statin, ASA on hold for epistaxis, likely resume tomorrow - no beta zena with recent dobutamine Assessment & Plan (06/27/2020 1:26 PM CDT): S/P 3v CABG 2018 - No anginal complaints - Continue medical treatment of statin, ASA on hold for epistaxis - no beta zena with recent dobutamine Assessment & Plan (06/26/2020 12:03 PM CDT): S/P 3v CABG 2018 - No anginal complaints - Continue medical treatment of statin, ASA on hold for epistaxis - no beta zena with dobutamine Assessment & Plan (06/25/2020 2:28 PM CDT): S/P 3v CABG 2018 - No anginal complaints - Continue medical treatment of statin and ASA - no beta zena with dobutamine Assessment & Plan (06/24/2020 3:36 PM CDT): S/P 3v CABG 2018 - No anginal complaints - Continue medical treatment of statin and ASA - no beta zena with dobutamine Assessment & Plan (06/23/2020 9:21 AM CDT): S/P 3v CABG 2018 - No anginal complaints - Continue medical treatment of statin and ASA - no beta zena with dobutamine Assessment & Plan (06/22/2020 12:01 PM CDT): S/P 3v CABG 2018 - No anginal complaints - Continue medical treatment of statin and ASA - no beta zena with dobutamine Assessment & Plan (06/21/2020 10:43 AM CDT): S/P 3v CABG 2018 - No anginal complaints - Continue medical treatment of statin and ASA - no beta zena with dobutamine Assessment & Plan (06/20/2020 11:46 AM CDT): S/P 3v CABG 2018 - No anginal complaints - Continue medical treatment of statin and ASA - no beta zena with dobutmamine Assessment & Plan (06/01/2020 10:34 AM CDT): w/ hx of CABG. -continue asa, statin, Tricor, holding BB. Assessment & Plan (05/29/2020 10:58 AM CDT): w/ hx of CABG. -continue asa, statin, Tricor, holding BB. Assessment & Plan (05/27/2020 1:11 PM CDT): w/ hx of CABG. -continue asa, statin, Tricor, holding BB. Assessment & Plan (05/25/2020 10:56 AM CDT): Need to minimize risk of hypoglycemia Assessment & Plan (05/22/2020 4:19 PM CDT): w/ hx of CABG. -continue asa, statin, Tricor, holding BB. Assessment & Plan (05/21/2020 3:24 PM CDT): w/ hx of CABG. -continue asa, statin, Tricor, holding BB Assessment & Plan (04/09/2018 2:21 PM CDT): Now regular pulse after cardioversion. Need to minimize risk of hypoglycemia Diabetic peripheral neuropathy ([facility]) 012 Assessment & Plan (03/18/2023 4:45 PM CDT): Continue renally dosed gabapentin Assessment & Plan (03/06/2023 4:14 PM CDT): Continue with diabetic control, physical therapy and oxycodone for pain Assessment & Plan (02/28/2023 9:46 AM CDT): Conts on gabapentin, will affect therapy Factor V Leiden mutation 12/25/2011 Dyslipidemia 12/21/2011 Assessment & Plan (02/28/2023 9:46 AM CDT): Stable, cont lipitor and fenofibrate Assessment & Plan (06/28/2020 10:30 AM CDT): - Continue statin, fenofibrate - hold cholestyramine as he has a predominant NAGMA on admission, which may be exacerbated by this medication. Also, this medication does have significant interaction with binding other medications Assessment & Plan (06/27/2020 1:26 PM CDT): - Continue statin, fenofibrate - hold cholestyramine as he has a predominant NAGMA on admission, which may be exacerbated by this medication. Also, this medication does have significant interaction with binding other medications Assessment & Plan (06/26/2020 12:04 PM CDT): - Continue statin, fenofibrate - hold cholestyramine as he has a predominant NAGMA on admission, which may be exacerbated by this medication. Also, this medication does have significant interaction with binding other medications Assessment & Plan (06/25/2020 2:31 PM CDT): - Continue statin, fenofibrate - hold cholestyramine as he has a predominant NAGMA on admission, which may be exacerbated by this medication. Also, this medication does have significant interaction with binding other medications Assessment & Plan (06/24/2020 3:54 PM CDT): - Continue statin, fenofibrate - hold cholestyramine as he has a predominant NAGMA on admission, which may be exacerbated by this medication. Also, this medication does have significant interaction with binding other medications Assessment & Plan (06/22/2020 12:03 PM CDT): - Continue statin, fenofibrate - hold cholestyramine as he has a predominant NAGMA on admission, which may be exacerbated by this medication. Also, this medication does have significant interaction with binding other medications Assessment & Plan (06/21/2020 10:44 AM CDT): - Continue statin, fenofibrate - hold cholestyramine as he has a predominant NAGMA on admission, which may be exacerbated by this medication. Also, this medication does have significant interaction with binding other medications Assessment & Plan (06/20/2020 11:50 AM CDT): - Continue statin, fenofibrate - hold cholestyramine as he has a predominant NAGMA on admission, which may be exacerbated by this medication. Also, this medication does have significant interaction with binding other medications Assessment & Plan (05/27/2020 1:12 PM CDT): Continue atorvastatin 40mg Assessment & Plan (05/26/2020 10:21 AM CDT): Continue atorvastatin 40mg Assessment & Plan (05/25/2020 10:56 AM CDT): Continue statin, optimize glycemic control Assessment & Plan (04/09/2018 2:21 PM CDT): On fenofibrate and statin. Need to optimize glycemic control Hypertension 12/21/2011 Assessment & Plan (05/22/2021 12:58 PM CDT): - VS Q4 hrs - On Lasix, hydralazine, metoprolol at home - Changed hydralazine to PRN, and decreased lasix dose to 40 mg BID on non -HD days due to normotension and borderline soft BP Assessment & Plan (02/22/2021 10:39 AM CDT): - VS Q4 hrs - Continue home Lasix, hydralazine, metoprolol Assessment & Plan (11/15/2020 8:46 AM CDT): - VS Q4 hrs - Continue home Lasix, hydralazine, metoprolol, Isordil Assessment & Plan (09/17/2020 6:52 AM INJECTION MOLDING SUPERVISOR): - VS Q4 hrs - Continue home Lasix, hydralazine, metoprolol, Isordil Assessment & Plan (06/28/2020 10:41 AM CDT): - Elevated blood pressure - continue hydralazine 100 mg tid, isosorbide 40 mg tid - Coreg held with recent FIRST CALENDER WORKER, likely resume low dose tomorrow Assessment & Plan (06/27/2020 1:27 PM CDT): - Elevated blood pressure - continue hydralazine 100 mg tid, isosorbide 40 mg tid - Coreg held with recent FIRST CALENDER WORKER, likely resume tomorrow Assessment & Plan (06/26/2020 12:05 PM CDT): -Elevated blood pressure - continue hydralazine 100 mg tid, isosorbide 40 mg tid -Coreg held while on FIRST CALENDER WORKER Assessment & Plan (06/25/2020 2:31 PM CDT): -Elevated blood pressure - continue hydralazine 100 mg tid, isosorbide 40 mg tid -Coreg held while on FIRST CALENDER WORKER Assessment & Plan (06/24/2020 3:58 PM CDT): -Elevated blood pressure - continue hydralazine 100 mg tid, isosorbide 40 mg tid -Coreg held while on FIRST CALENDER WORKER Assessment & Plan (06/23/2020 10:00 AM CDT): Elevated blood pressure - continue hydralazine 100 mg tid, isosorbide 40 mg tid Off carvedilol while being on dobutamine Continue to monitor Assessment & Plan (05/31/2020 11:11 AM CDT): On home carvedilol, held due to 1st degree HB with prolonged NV interval, borderline HR (56-60) - Start amlodipine 5mg Assessment & Plan (05/30/2020 1:28 PM CDT): On home carvedilol, held due to 1st degree HB with prolonged NV interval, borderline HR (56-60) - Start amlodipine 5mg Assessment & Plan (05/29/2020 10:58 AM CDT): On home carvedilol, held due to 1st degree HB with prolonged NV interval, borderline HR (56-60) - Start amlodipine 5mg Assessment & Plan (05/26/2020 12:36 PM CDT): On home carvedilol, held due to 1st degree HB with prolonged NV interval, borderline HR (56-60) - Start amlodipine 5mg Assessment & Plan (04/09/2018 2:22 PM CDT): Blood pressure within target Resolved Problems Problem Noted Date Diagnosed Date Resolved Date Diabetic ulcer of right fifth toe 11/14/2020 12/01/2020 Overview (11/17/2020): Added automatically from request for surgery [id number] Foot ulcer ([facility] [facility]) 11/14/2020 021 Overview (11/22/2020): Added automatically from request for surgery [id number] Ulcer of right foot with bon e involvement without evidence of necrosis ([facility]) 11/14/2020 0 12/01/2020 Overview (11/22/2020): Added automatically from request for surgery [id number] Wound of left leg 11/14/2020 12/01/2020 Overview (11/25/2020): Added automatically from request for surgery [id number] Immunizations Immunization Administration Dates Next Due Influenza, Quadrivalent, Spl it, Preservative Free, Intramuscular 07/01/2020 Influenza, Unspecified 06/16/2017,06/02/2017 Surgical History Surgery Date Site/Laterality Comments 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/02/2011 - 09/01/2012 Left Surgery Foot Amputation Toe At IP Joint - L 5th toe (Added by TW Conv) CORONARY ARTERY BYPASS GRAFT 09/02/2015 - 10/02/2015 x4 HEART SURGERY 09/02/2010 - 09/01/2011 6 stents CARDIAC CATHETERIZATION EYE SURGERY Left s/p Complex CE w/PCIOL OS CARDIOVERSION 09/02/2017 - 09/01/2018 afib BELOW KNEE LEG AMPUTATION 09/02/2019 - 09/01/2020 Left AV FISTULA PLACEMENT 02/20/2021 Right brachila-cephalic fistula creation OTHER SURGICAL HISTORY 02/24/2021 & 11/23/2020 Left Left Lower Extremity Angiogram OTHER SURGICAL HISTORY 12/08/2020 Left Wound closure OTHER SURGICAL HISTORY 11/29/2020 Left Debridement of left leg fibulectomy and placement of wound vac TOE AMPUTATION 11/18/2020 Left Right foot 5th ray REMOVE TUNNELED LINE 05/17/2021 Left GALLBLADDER DRAINAGE 03/11/2023 N/A Medical History Medical History Date Comments History of other diseases of the circulatory system, not elsewhere classified Acute Myocardial Infarction - (Added by TW Conv) Measles Measles (Rubeola ) - (Added by TW Conv) Personal history of nicotine dependence Former smoker - Quit 12/14/19 12 (Added by TW Conv) Personal history of other in fectious and parasitic diseases History of mumps - (Added by TW Conv) Personal history of other in fectious and parasitic diseases History of varicella - (Adde d by TW Conv) Male erectile dysfunction Erecti le dysfunction of organic origin - (Added by TW Conv) Type 2 diabetes mellitus wit hout complications (CMS/HCC) ([facility]) Insulin dependent type 2 diabetes mellitus - (Added by TW Conv) Type 2 diabetes mellitus wit h hyperglycemia (CMS/HCC) ([facility]) Type 2 diabetes mellitus with hyperglycemia - (Added by TW Conv) Cataract Sleep apnea CAD (coronary artery disease) Gangrene (CMS/HCC) ([facility]) Apical mural thrombus CKD (chronic kidney disease) Heart failure ([facility]) History of atrial fibrillation Ulcer of right foot with bon e involvement without evidence of necrosis (CMS/HCC) ([facility]) 11/14/2020 Added automatically from [facility] for surgery [id number] Foot ulcer (CMS/HCC) ([facility]) 11/14/2020 Added automatically from request for surgery [id number] Diabetic ulcer of right fift h toe ([facility]) 11/14/2020 Added automatically from [employer] for surgery [id number] Hypertension Hyperlipidemia Peripheral vascular disease ([facility]) Atrial fibrillation (CMS/HCC) ([facility]) GERD (gastroesophageal reflux disease) Depression Hemodialysis patient (CMS/HCC) ([facility]) on Tuesdays, , and Saturdays. Family History Medical History Relation Name Comments Heart attack Brother Family history of heart attack - 3 brothers and 2 sisters (Added by TW Conv) Heart attack Father Family history of heart attack - 3 brothers and 2 sisters (Added by TW Conv) Heart failure Father Family history of CHF (congestive heart failure) - (Added by TW Conv) Glaucoma Mother Hypertension Mother Hypertension - (Added by TW Conv) Heart attack Other 1 Acute Myocardia l Infarction - all brothers and sisters (Added by TW Conv) Hypertension Other 2 Hypertension - (Added by TW Conv) Heart attack Sister Family history of heart attack - 3 brothers and 2 sisters (Added by TW Conv) Anesthesia problems Neg Hx Macular degeneration Neg Hx Relation Name Status Comments Brother Father Mother Other 1 Other 2 Sister Social History Tobacco Use Types Packs/Day Years Used Date Smoking Tobacco: Former Cigarettes 0.5 42 1 978 - 2020 Smokeless Tobacco: Never Comments:on and off Alcohol Use Standard Drinks/Week Comments Yes 0 (1 standard drink = 0.6 oz pur e alcohol) 2 drinks a month Social Connection and Isolation Panel [NHANES] A nswer Date Recorded In a typical week, how many times do you talk on the phone with family, friends, or neighbors? Three times a week 03/12/2023 How often do you get togethe r with friends or relatives? Once a week 03/12/2023 How often do you attend chur ch or rastafari services? Never 03/12/2023 Do you belong to any clubs o r organizations such as gnosticist groups, unions, fraternal or athletic groups, or school groups? No 03/12/2023 How often do you attend meet ings of the clubs or organizations you belong to? Never 03/12/2023 Are you , , di vorced, , never , or living with a partner? 03/12/2023 AUDIT-C Answer Date Recorded Q1: How often do you have a drink containing alc ohol? Monthly or less 11/03/2021 Q2: How many drinks containi ng alcohol do you have on a typical day when you are drinking? 1 or 2 11/03/2021 Q3: How often do you have si x or more drinks on one occasion? Never 11/03/2021 Overall Financial Resource Strain (CARDIA) Answe r Date Recorded How hard is it for you to pa y for the very basics like food, housing, medical care, and heating? Not hard at all 03/11/2023 Hunger Vital Sign Answer Date Recorded Within the past 12 months, y ou worried that your food would run out before you got the money to buy more. Never true 03/11/20 23 Within the past 12 months, t he food you bought just didn't last and you didn't have money to get more. Never true 03/11/2023 PRAPARE - Transportation Answer Date Re corded In the past 12 months, has l ack of transportation kept you from medical appointments or from getting medications? No 03/02 In the past 12 months, has l ack of transportation kept you from meetings, work, or from getting things needed for daily living? No 03/11/2023 Housing Stability Vital Sign Answer Joseph e Recorded In the last 12 months, was t here a time when you were not able to pay the mortgage or rent on time? No 03/12/2023 In the last 12 months, how many places have you lived? 1 03/12/2023 In the last 12 months, was t here a time when you did not have a steady place to sleep or slept in a care home (including now)? No 03/12/2023 Personal Safety Answer Date Recorded Have you ever been in or are you currently in a harmful physical or emotional relationship or is someone making you feel afraid or unsafe? Denies 04/16/2023 Sex and Gender Information Value Date Recorded Sex Assigned at Not on file Legal Sex Male 4:17 AM INJECTION MOLDING SUPERVISOR Gender Identity Not on file Sexual Orientation Not on file Obstetrics History Last Filed Vital Signs Vital Sign Reading Time Taken Comments Blood Pressure 116/57 04/30/2023 7:27 PM CDT Pulse 66 04/30/2023 7:27 PM CDT Temperature 36.8 C (98.2 F) 04/30/2023 7:27 PM CDT Respiratory Rate 18 04/30/2023 7:27 PM CDT Oxygen Saturation 93% 04/30/2023 7:27 PM CDT Inhaled Oxygen Concentration - - Weight 79 kg (174 lb 2.6 oz) 04/25/2023 6:10 AM CDT Height 182.9 cm (6') 04/16/2023 2:00 AM CDT Body Mass Index 23.62 04/16/2023 2:00 AM CDT Plan of Treatment Health Maintenance Due Date Last Done Comments Albumin Creatinine Ratio, Urine 1965 Depression Screening 1965 Prostate Cancer Screening-PSA 1965 Foot Exam 1965 DTaP/Tdap/Td Vaccine (1 - Tdap) 1974 Regular Well Visit/Exam 18-64 1981 Lung Cancer Screening 2013 Zoster Vaccine (1 of 2) 2013 Dilated Eye Exam 09/22/2020 09/22/2019 Pneumococcal vaccine <65 (2 of 2 - PPSV23 or PCV20) 09/27/2020 08/02/2020 Hemoglobin A1C 08/17/2023 02/15/2023, 0601/2023, 05/16/2021, Additional history exists Lipid Panel 02/16/2024 02/15/2023, 05/03, 09/25/2017 eGFR 04/30/2024 04/30/2023, 04/03, 04/28/2023, Additional history exists Influenza Vaccine (#1) 2024 , 06/02/2020, 06/16/2017, Additional history exists Colon Cancer Screening-Colonoscopy 11/04/2031 11/03/2021 Hepatitis C Screening Completed 09/20/2020 Colon Cancer Screening-CT Colonography Discontinued 11/03/2021 Colon Cancer Screening-DNA Stool Discontinued 11/04/19 Colon Cancer Screening-FIT Discontinued 11/03/2021 Colon Cancer Screening-Sigmoidoscopy Discontinued 11/03/2021 Hepatitis B Screening Completed 04/16/2023 Medical Devices Implanted Type Area Compliance Representative Device Identifier Shelf Expiration Date Model / Serial / Lot [employer] [id number] - [id number] - [id number] Implanted:Qty: 1 on 02/24/2020 by Jeremias aMy MD at [facility] Advanced Medicine Lens Left: Eye [employer] 09/01/2022 [id number] / [id number] / [employer] [id number] Zilver Ptx 7mm 40mm 125cm Drug Elute Otw Delivery System - [id number] - [id number] Implanted:Qty: 1 on 09/16/2020 by Frandy Colunga MD at [facility] Stent Right: Femoral [employer] 12/02/2021 [id number] / [id number] / [id number] [employer] [id number] Vascade 6/7fr Bioabsorbable Vascular System Compression Collagen - [id number] Implanted:Qty: 1 on 11/24/2020 by Eliseo Akins MD at [facility] [employer] 08/04/2022 [id number] / [id number] Procedures Procedure Name Priority Date/Time Associated Diagnosis Comments EGFR Routine 04/30/2023 3:09 AM CDT HEMOGLOBIN A1C STAT 02/15/2023 5:16 AM CDT LIPID PANEL STAT 02/15/2023 5:16 AM CDT COLONOSCOPY 11/03/2021 12:44 PM INJECTION MOLDING SUPERVISOR HEPATITIS C ANTIBODY Routine 09/20/2020 8:35 PM INJECTION MOLDING SUPERVISOR from Last 3 Months or Most Recently Relevant to Health Maintenance Results * eGFR (04/30/2023 3:09 AM CDT) eGFR 20 mL/min/1. 73 m2 [facility] OWENS Comment: Interpretive Data Reference Interval Normal >/= 90 mL/min/1.73m2 Mildly decreased* 60 - 89 mL/min/1.73m2 Mildly to moderately decreased 45 - 59 mL/min/1.73m2 Moderately to severely decreased 30 - 44 mL/min/1.73m2 Severely decreased 15 - 29 mL/min/1.73m2 Kidney Failure < 15 mL/min/1.73m2 *Relative to young adult level Estimated glomerular filtration rate is determined by the 2020 CKD-EPI equation recommended by the National Kidney Foundation (A Unifying Approach to GFR Estimation: Recommendations of the NKF-ASK Task Force on Reassessing the Inclusion of Race in Diagnosing Kidney Disease, JASN 2020). The CKD-EPI equation should not be used for patients with unstable renal function and has not been validated in children and those over 70. Current interpretive data was last reviewed 2021. Blood 04/30/2023 3:09 AM CDT 04/30/2023 4:44 AM CDT Washington Little MD LAB BLOOD ORDERABLES Final Result [facility] [address] [facility] Department [place] [address] * Hemoglobin A1c (02/15/2023 5:16 AM CDT) Hgb A1C 5.5 4.0 - 5.6 % LEANRDO CLARKE Estimated Average Glucose 111 mg/dL LEAN[facility]O CLARKE Comment: The ADA recommends reporting an estimated Average Glucose (eAG) with all Hemoglobin A1c results using the equation derived from a study of 507 normal and diabetic adults. Minority populations were underrepresented and children were not included. (Diabetes Care 2020; 43(S1): S66-S76). The eAG is not equivalent to a fasting glucose. Blood 02/15/2023 5:16 AM CDT 02/15/2023 6:02 AM CDT Marcella Arias MD LAB BLOOD ORDERABLES Final Result [facility] [place] [address] * (ABNORMAL) Lipid panel (02/15/2023 5:16 AM CDT) Cholesterol 75 30 - 199 mg/dL [facility] Comment: Interpretive Data Ages < or = 19 years Acceptable: <170 mg/dL Borderline high: 170-199 mg/dL High: >or= 200 mg/dL Ages > or = 20 years Desirable: <200 mg/dL Borderline high: 200-239 mg/dL High: >or= 240 mg/dL Literature References: 1. Expert Panel on Integrated Guidelines for Cardiovascular Health and Risk Reduction in Children and Adolescents. Pediatrics 2011;128:S213 2. NCEP Expert Panel. Circulation 2004;110:227 Current Interpretive Data was last revised on 2018. Triglycerides 81 <=149 mg/dL [facility] Comment: Interpretive Data Ages < or = 9 years Acceptable: <75 mg/dL Borderline high: 75-99 mg/dL High: >or= 100 mg/dL Ages 10 to 20 years Acceptable: <90 mg/dL Borderline high: 90-129 mg/dL High: >or= 130 mg/dL Ages > or = 20 years Desirable: <150 mg/dL Borderline high: 150-199 mg/dL High: 200-499 mg/dL Very high: >or= 499 mg/dL Literature References: 1. Expert Panel on Integrated Guidelines for Cardiovascular Health and Risk Reduction in Children and Adolescents. Pediatrics 2011;128:S213 2. NCEP Expert Panel. Circulation 2004;110:227 Current Interpretive Data was last revised on 2018. HDL 26(L) >=40 mg/dL [facility] Comment: Interpretive Data Ages < or = 19 years Acceptable: >45 mg/dL Borderline low: 40-45 mg/dL Low: <40 mg/dL Ages > or = 20 years Desirable: >or= 60 mg/dL Low: <40 mg/dL Literature References: 1. Expert Panel on Integrated Guidelines for Cardiovascular Health and Risk Reduction in Children and Adolescents. Pediatrics 2011;128:S213 2. NCEP Expert Panel. Circulation 2004;110:227 Current Interpretive Data was last revised on 2018. LDL, calculated 33 <=129 mg/dL [facility] Comment: Interpretive Data Ages < or = 19 years Acceptable: <110 mg/dL Borderline high: 110-129 mg/dL High: >or= 130 mg/dL Ages > or = 20 years Optimal: <100 mg/dL Near optimal: 100-129 mg/dL Borderline high: 130-159 mg/dL High: >160 mg/dL Literature References: 1. Expert Panel on Integrated Guidelines for Cardiovascular Health and Risk Reduction in Children and Adolescents. Pediatrics 2011;128:S213 2. NCEP Expert Panel. Circulation 2004;110:227 Current Interpretive Data was last revised on 2018. Non-HDL Cholesterol 49 mg/dL [facility] Comment: Interpretive Data Ages < or = 19 years Acceptable: <120 mg/dL Borderline high: 120-144 mg/dL High: >145 mg/dL Ages > or = 20 years When triglycerides are >200 mg/dL, Non-HDL cholesterol is a secondary target of therapy with treatment goals that are 30 mg/dL greater than the LDL cholesterol target. Literature References: 1. Expert Panel on Integrated Guidelines for Cardiovascular Health and Risk Reduction in Children and Adolescents. Pediatrics 2011;128:S213 2. NCEP Expert Panel. Circulation 2004;110:227 Current Interpretive Data was last revised on 2018. Chol/HDL ratio 3 [facility] Blood 02/15/2023 5:16 AM CDT 02/15/2023 5:57 AM CDT us Marcella Arias MD LAB BLOOD ORDERABLES Final Result [facility] Department [place] [address] * COLONOSCOPY (11/03/2021 12:44 PM INJECTION MOLDING SUPERVISOR) Anatomical Region Laterality Modality Other Narrative Procedure Note Brayden Lerma MD - 11/03/2021 12:44 PM CST [facility] Patient Name: Kobi Salter Procedure Date: 11/03/2021 12:44 PM Date of : 1965 Admit Type: Outpatient Age: 56 Gender: Male Note Status: Finalized Attending MD: Brayden Lerma M.D. Procedure Date: 11/03/2021 Procedure: Colonoscopy Indications: Chronic diarrhea Patient Profile: This is a 56 year old male. Diarrhea. Providers: Brayden Lerma M.D., Teresa Ross CRNA (Anesthesia Staff), Gini Izquierdo RN, Jose A Vuong,Forest Pathology Teacher Referring MD: Jewels Lamas M.D. Medicines: Monitored Anesthesia Care Complications: No immediate complications. Estimated Blood Loss: Estimated blood loss was minimal. Procedure: Pre-Anesthesia Assessment: - ASA Grade Assessment: II - A patient with mild systemic disease. - The risks and benefits of the procedure and the sedation options and risks were discussed with the patient. All questions were answered and informed consent was obtained. After I obtained informed consent, the scope was passed under direct vision. Throughout theprocedure, the patient's blood pressure, pulse, and oxygen saturations were monitored continuously. The scopewas passed under direct vision. The Colonoscope was introduced through the anus and advanced to the terminal ileum. The colonoscopy was performedwithout difficulty. The patient tolerated the procedurewell. The quality of the bowel preparation was evaluated using the BBPS (Lund Bowel Preparation Scale)with scores of: Right Colon = 2 (minor amount ofresidual staining, small fragments of stool and/or opaque liquid, but mucosa seen well), Transverse Colon = 2 (minor amount of residual staining, small fragmentsof stool and/or opaque liquid, but mucosa seen well)and Left Colon = 2 (minor amount of residual staining, small fragments of stool and/or opaque liquid, but mucosa seen well). The total BBPS score equals 6.The quality of the bowel preparation was good. Thequality of the bowel preparation was good. The bowel preparation used was SUPREP via extended prep with split dose instruction. Bowel prep was administered using a split dose. Findings: The perianal and digital rectal examinations were normal. Multiple small and large-mouthed diverticula were found in the descending colon. An area of moderately congested mucosa was found in the entire colon. This was biopsied with a cold forceps for histology. The retroflexed view of the distal rectum and anal verge was normaland showed no anal or rectal abnormalities. Impression: - Diverticulosis in the descending colon. - Congested mucosa in the entire examined colon. Biopsied. - The distal rectum and anal verge are normal on retroflexion view. Recommendation: - Discharge patient to home. - Await pathology results. - Repeat colonoscopy in 5 years for screeningpurposes. Electronically signed by Brayden Lerma MD Brayden Lerma M.D. 11/03/2021 1:50:58 PM Number of Addenda: 0 Note Initiated On: 11/03/2021 12:44 PM us Brayden Lerma MD ENDOSCOPY PROCEDURES Final Re sult * Hepatitis C antibody (09/20/2020 8:35 PM INJECTION MOLDING SUPERVISOR) Hep C Ab Nonreactive Nonreactive [facility] Comment:Antibodies to HCV no t detected. Does NOT exclude the possibility of recent exposure to HCV. Blood specimen (specimen) 09/20/2020 8:35 PM INJECTION MOLDING SUPERVISOR 09/20/2020 10:17 PM INJECTION MOLDING SUPERVISOR us Jasson Teague NP LAB MICROBIOLOGY - GENE RAL ORDERABLES Final Result [facility] [place] [address] from Last 3 Months or Most Recently Relevant to Health Maintenance Additional Health Concerns Infection Onset Date Last Indicated MDR gram neg/ESBL 04/16/2023 04/16/2023 C. difficile 04/26/2023 04/26/[address] [place] [address] [facility] MEDICARE [facility] [place] Advance Directives For more information, please contact: [phone] Documents on File Type Date Recorded Patient Activity Therapist Expl anation ADVANCE DIRECTIVE 09/25/2020 7:52 AM POWER OF CARE MANAGER [employer] * Full Code (Latest Code Status on File) Date Activated Date Inactivated Comments 04/16/2023 1:48 AM 05/01/2023 12:16 AM * Full Code Date Activated Date Inactivated Comments 03/10/2023 5:12 PM 03/16/2023 10:44 PM * Full Code Date Activated Date Inactivated Comments 02/15/2023 4:56 AM 02/26/2023 11:23 PM * Full Code Date Activated Date Inactivated Comments 12/07/2022 2:31 PM 12/13/2022 4:02 AM * Full Code Date Activated Date Inactivated Comments 05/16/2021 11:56 AM 05/31/2021 12:12 AM Care Teams Director Of Cloud Services Relationship Specialty Start Date End Date No, Physician PCP - General 02/14/23 Frandy Colunga MD Surgeon Vascular Surgery 02/28/21 Alcon Quintanilla DPM Surgeon Podiatry 02/28/21 Theodore Solis MD [address] [place] [address] Consulting Physician Internal Medicine 03/16/23 Raul Lynn IV, MD [address] [place] [id number] Consulting Physician General Surgery 04/30/23
--- OUTSIDE RECORDS SUMMARY | 2024-10-19 12:38 | XMS_ITS | Referral Summary ---
Author Organization [facility] [address] Address [address] [place] [address] Care Team Providers Care Senior Underwriter Name Role Phone Frandy Colunga MD Unavailable [phone] Alcon QuintanillaM Unavailable [phone] No, Physician Primary Care Provider [phone] Theodore Solis MD Unavailable Leah MARINO MD, Gregg B[place] Unavailable Allergies Active Allergy Reactions Criticality Noted Date [...] no signs of displacement. Discussed extensively with curriculum and assessment director and therapy. We will proceed with therapy [...] GI. I reminded patient has sister and curriculum and assessment director at this appointment at [facility] at 1:[address] Bradley. [...] presented with mental status changes from the residential and found to have acute cholecystitis. Likely acute metabolic encephalopathy. Treat underlying cause. Mental status is improving. Closed left subtrochanteric femur fracture, sequ christiana 02/28/2023 Assessment & Plan (04/09/2023 7:04 PM CDT): Ortho fu pending, aquilino phan Assessment & Plan (04/03/2023 5:26 PM CDT): Nonoperative management was recommended at [facility] earlier this summer. We will arrange outpatient follow up with Orthopedics but seems to be asymptomatic on that leg Assessment & Plan (03/26/2023 3:12 PM CDT): As per HPI, pain seems somewhat better controlled on current regimen. Recent x- rays did not show any new fractures. I reminded curriculum and assessment director the patient appears to still need appointment made with Orthopedics at [place]. Phone #[phone] Assessment & Plan (03/18/2023 4:48 PM CDT): [...] as pain control with oxycodone. Discussed with curriculum and assessment director about getting follow up with Orthopedics in [...] status seems to be slowly improving. Reminded curriculum and assessment director that patient has on April [address] [facility] at 1:30 p.m. along with the details [...] to be clinically improving neurologically. Discussed with curriculum and assessment director about getting neurosurgery follow up in about [...] 08/08/2021 Assessment & Plan (10/27/2021 3:09 PM SUPER[employer]): EGD/Colonoscopy scheduled for 11/03/21 Hold aspirin 10/29/21 Assessment & Plan (08/15/2021 1:41 PM SUPERVIS[employer]ENT[employer]): Patient was referred for colonoscopy and has appointment with GI. Abdominal pain has resolved. Assessment & Plan (08/08/2021 12:33 PM SUPERVISOR [employer]PENT[employer]): Last colonoscopy 2012 (Unavailable). Recurrent rectal pain and diarrhea. No hemorrhoids. Check CBC. Encounter for surgical after care following surgery of circulatory system 06/16/2021 Chronic diarrhea 06/06/2021 Assessment & Plan (10/03/2021 9:10 AM SUPERVIS[employer]PENT[employer]): Pt was given Lomotil due to diarrhea and now c/o constipation. Resume questran and loperamide when constipation resolved. Assessment & Plan (07/28/2021 12:53 PM SUPERVIS[employer]): Pt was given Lomotil due to diarrhea and now c/o constipation. Resume questran and loperamide when constipation resolved. Assessment & Plan (07/18/2021 1:25 PM SUPERVIS[employer]): Continue cholestyramine and loperamide. Assessment & Plan [...] therapy Assessment & Plan (10/03/2021 9:09 AM SUPERVISOR [employer]PENT[employer]): Patient's pain is controlled with Warren Patient needs AKA wound functional level for prosthesis for transfer and ambulation on level surfaces at a fixed candence Assessment & Plan (06/14/2021 2:19 PM CDT): Percocet change to Warren as patient could not tolerate Assessment & Plan (05/31/2021 1:38 PM CDT): Continue PT/OT. Recurrent major depressive disorder, in remissio n 05/31/2021 Assessment & Plan (03/18/2023 4:46 PM CDT): Cont remeron, stable but fluctuates due to recent hosp stay and illnesses Assessment & Plan (07/28/2021 12:53 PM SUPERVIS[employer]): Continue Remeron and Zoloft. Assessment & Plan [...] tomorrow. Assessment & Plan (10/03/2021 9:11 AM SUPERVISOR [employer]PENT[employer]): Continue Tradjenta and Glargine. Blood sugars have been stable between 70 and 150 Assessment & Plan (09/05/2021 12:27 PM SUPERVIS[employer]): Continue Tradjenta and Glargine. Check A1c every 90 days. Assessment & Plan (08/01/2021 11:57 AM SUPERVISOR [employer]): Blood glucose 110 - 138 Continue Glargine and Tradjenta Assessment & Plan (07/18/2021 1:24 PM SUPERVISOR [employer]): Continue Tradjenta and glargine insulin. Assessment & Plan (06/29/2021 1:46 PM CDT): Stable on Tradjenta and glargine insulin. Assessment & Plan (06/06/2021 2:02 PM CDT): Continue Tradjenta and glargine Assessment & Plan (05/31/2021 1:46 PM CDT): Continue glargine and Tradjenta. Hypophosphatemia 05/30/2021 Assessment & Plan (05/30/2021 10:08 AM CDT): - Held sevelamer for low phosphorous level. - Given IV phos per renal 05/29 [facility] (current) use of antibiotics Assessment & Plan [...] ich Assessment & Plan (10/03/2021 9:09 AM SUPERVISOR [employer]): Not on anticoagulation. Continue Metoprolol, Aspirin. Assessment & Plan (08/01/2021 11:54 AM SUPERVISOR AC[employer]): Not on anticoagulation. Continue Metoprolol, Aspirin. 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 Gangrene of right foot ([facility]) 11/15/2020 Assessment & Plan (05/26/2021 7:20 AM [...] (12/05/2020): Added automatically from request for surgery [id number] End-stage renal disease on hemodialysis ([facility] ) 09/14/2020 Assessment & Plan (04/09/2023 7:04 [...] hemodialysis. Assessment & Plan (10/27/2021 3:10 PM SU[employer]): Continue hemodialysis weekly. Assessment & Plan (08/07/2021 10:27 AM SUPERVISOR [employer]): Currently on Sevelamer and Ferrous sulfate. Hemodialysis three days weekly. Assessment & Plan (07/14/2021 1:51 PM SUPERVISOR [employer]): Continue Sevelamer and Ferrous sulfate. Assessment & [...] schedule Assessment & Plan (09/21/2020 8:33 AM SUPERVISOR [employer]): - ESRD on dialysis as of August [...] Renvela. Assessment & Plan (09/15/2020 11:00 AM SUPERVISOR [employer]): - Related to increased needs, chronic illness/injury and wounds - Nutrition consulted - Consistent carb diet. Will allow double portions of meat. - Supplements ordered Foot ulcer due to secondary DM ([facility]) 021 Assessment & Plan (09/21/2020 8:32 AM SUPERVISOR [employer]): Right foot wounds appeared about 1 month [...] Continue aspirin + Plavix daily Atherosclerosis of kiana artery of right lower extremity 09/06/2020 Overview (09/06/2020): Added automatically from request for surgery [id number] Peripheral arterial disease ([facility]) 09/06/2020 Overview (09/06/2020): Added automatically from request for surgery [id number] Assessment & Plan (03/06/2023 4:14 PM CDT): Continue medical management with statin. Patient is status post bilateral amputations for this reason Assessment & Plan (10/03/2021 9:13 AM SUPERVISOR [employer]PENT[employer]): Patient to continue aspirin Assessment & Plan [...] chair Assessment & Plan (09/18/2020 8:47 AM SUPERVISOR [employer]): - s/p left BKA 05/2020. Presents now [...] 06/23/2020 Assessment & Plan (09/05/2021 12:26 PM SUPERVISOR [employer]): Continue working with PT/OT. Follow up outpatient for prosthetic. Assessment & Plan (08/15/2021 1:43 PM SUPERVISOR [employer]): Continue PT/OT Continue outpatient follow up for prosthetic on 08/21/21 (2pm), 08/28/21 (11am), and 09/06/21 (11am). Assessment & Plan (08/08/2021 12:35 PM SUPERVISOR [employer]): Seen outpatient for prosthetic yesterday and has follow up again 08/21/21 (2pm), 08/28/21 (11am), and 09/06/21 (11am) Assessment & Plan (08/07/2021 10:29 AM SUPERVISOR [employer]): Denies phanthom limb pain. Pain controlled cyclobenzaprine, Acetaminophen, and Gabapentin. Assessment & Plan (08/01/2021 11:53 AM SUPERVISOR [employer]): Continue Aspirin and Gabapentin. Pain well controlled. Assessment & Plan (07/07/2021 12:45 PM CDT): Follow-up outpatient for prosthesis (guide changer) Continue gabapentin, acetaminophen, and physical and occupational therapy as tolerated. Assessment & Plan (06/29/2021 1:45 PM CDT): Patient measured for below-knee dish maker is yesterday and will follow-up for fitting (guide changer). Incision well-healed. Continue PT/OT. Continue gabapentin and acetaminophen. Assessment & Plan (06/19/2021 1:55 PM CDT): Patient had follow-up with vascular surgeon. Sutures removed and patient recommended for residual limb dish maker. Pain well controlled. Continue PT/OT Assessment & Plan (06/08/2021 3:02 PM CDT): Patient unable to tolerate oxycodone due to increased confusion. Discussed with MD and will discontinue oxycodone and changed to Warren to help with postoperative pain. 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 ([facility]) 05/19/2020 Assessment & Plan (07/14/2021 1:52 PM SUPERVISOR [employer]PENT[employer]): Continue Lasix 40 mg daily Assessment & Plan (09/15/2020 10:36 AM SUPERVISOR [employer]): - Echo from 05/2020 LVEF 34% otherwise [...] degree HB on tele w/ very prolonged KY interval and resting bradycardia to mid 50-60s [...] degree HB on tele w/ very prolonged KY interval and resting bradycardia to mid 50-60s [...] degree HB on tele w/ very prolonged KY interval and resting bradycardia to mid 50s, [...] degree HB on tele w/ very prolonged KY interval and resting bradycardia to mid 50s, [...] degree HB on tele w/ very prolonged KY interval, consider restarting - on Entresto 49-51 [...] degree HB on tele w/ very prolonged KY interval, consider restarting - on Entresto 49-51 [...] degree HB on tele w/ very prolonged KY interval. Restart if able. - on Entresto [...] degree HB on tele w/ very prolonged KY interval. Restart if able. - on Entresto [...] Plan (05/19/2020 9:20 AM CDT): - BNP 92685 - Restart home carvedilol - Diuresis 2017 [...] diarrhea --> loperamide Gangrene of left foot ([facility]) 05/18/2020 Overview (05/18/2020): Added automatically from request for surgery [id number] Assessment & Plan (06/01/2020 10:34 AM CDT): [...] (05/19/2020): Added automatically from request for surgery [id number] Assessment & Plan (02/28/2023 9:46 AM CDT): [...] eye. Assessment & Plan (09/22/2019 3:29 PM SUPERVISOR [employer]PENT[employer]): New cataract evaluation today Mature cataract OS [...] on admission with NSR with severely prolonged KY - as noted above, resuming low dose coreg - telemetry Assessment & Plan (06/29/2020 9:55 AM CDT): History of post-op AF - Not on AC on admission, ECG on admission with NSR with severely prolonged KY - as noted above, resuming low dose coreg - telemetry Assessment & Plan (06/28/2020 10:30 AM CDT): History of post-op AF - Not on AC on admission, ECG on admission with NSR with severely prolonged KY - Holding coreg for now while on dobutamine - telemetry Assessment & Plan (06/27/2020 1:26 PM CDT): History of post-op AF - Not on AC on admission, ECG on admission with NSR with severely prolonged KY - Holding coreg for now while on dobutamine - telemetry Assessment & Plan (06/26/2020 12:02 PM CDT): History of post-op AF - Not on AC on admission, ECG on admission with NSR with severely prolonged KY - Holding coreg for now while on dobutamine - telemetry Assessment & Plan (06/25/2020 2:28 PM CDT): History of post-op AF - Not on AC on admission, ECG on admission with NSR with severely prolonged KY - Holding coreg for now while on dobutamine - telemetry Assessment & Plan (06/24/2020 3:35 PM CDT): History of post-op AF - Not on AC on admission, ECG on admission with NSR with severely prolonged KY - Holding coreg for now while on dobutamine - telemetry Assessment & Plan (06/23/2020 9:22 AM CDT): History of post-op AF - Not on AC on admission, ECG on admission with NSR with severely prolonged KY - Holding coreg for now while on dobutamine - telemetry Assessment & Plan (06/22/2020 12:01 PM CDT): History of post-op AF - Not on AC on admission, ECG on admission with NSR with severely prolonged KY - Holding coreg for now while on dobutamine - telemetry Assessment & Plan (06/21/2020 10:44 AM CDT): History of post-op AF - Not on AC on admission, ECG on admission with NSR with severely prolonged KY - Holding coreg for now while on dobutamine - telemetry Assessment & Plan (06/20/2020 11:49 AM CDT): History of post-op AF - Not on AC on admission, ECG on admission with NSR with severely prolonged KY - Holding coreg for now while on [...] - Pt remains under [facility] care at [facility]. - Discussed with patient the rational for treatment, culture results, risk of recurrent infection, signs/symptoms of recurrent infection, and to contact ID clinic with any questions or concerns. Assessment & Plan (06/30/2020 10:47 AM CDT): S/p L BKA - Continue daily wound care - PT/OT eval and treat Patient will be going to carrier clinic tomorrow. Assessment & Plan (06/29/2020 9:57 AM [...] Obesity 01/03/2015 Diabetes mellitus type II, uncontrolled ([facility] ) 08/18/2013 Overview (05/26/2020): May 2020: C-peptide [...] QID Assessment & Plan (09/15/2020 10:36 AM SUPERVIS[employer]): - Hgb A1c 8.5% 05/2020, 5.5% 09/2019 [...] as current doses - follow-up with his pick up attendant at [facility] for long-term therapy decisions. Consider GLP-1 [...] plavix Assessment & Plan (09/14/2020 11:01 AM SUPERVISOR [employer]): - s/p CABG [address] Sae [...] minimize risk of hypoglycemia Diabetic peripheral neuropathy ([facility]) 012 Assessment & Plan (03/18/2023 4:45 PM [...] Isordil Assessment & Plan (09/17/2020 6:52 AM SUPERVISOR [employer]): - VS Q4 hrs - Continue home Lasix, hydralazine, metoprolol, Isordil Assessment & Plan (06/28/2020 10:41 AM CDT): - Elevated blood pressure - continue hydralazine 100 mg tid, isosorbide 40 mg tid - Coreg held with recent TENSION MACHINE OPERATOR, likely resume low dose tomorrow Assessment & Plan (06/27/2020 1:27 PM CDT): - Elevated blood pressure - continue hydralazine 100 mg tid, isosorbide 40 mg tid - Coreg held with recent TENSION MACHINE OPERATOR, likely resume tomorrow Assessment & Plan (06/26/2020 12:05 PM CDT): -Elevated blood pressure - continue hydralazine 100 mg tid, isosorbide 40 mg tid -Coreg held while on TENSION MACHINE OPERATOR Assessment & Plan (06/25/2020 2:31 PM CDT): -Elevated blood pressure - continue hydralazine 100 mg tid, isosorbide 40 mg tid -Coreg held while on TENSION MACHINE OPERATOR Assessment & Plan (06/24/2020 3:58 PM CDT): -Elevated blood pressure - continue hydralazine 100 mg tid, isosorbide 40 mg tid -Coreg held while on TENSION MACHINE OPERATOR Assessment & Plan (06/23/2020 10:00 AM CDT): Elevated blood pressure - continue hydralazine 100 mg tid, isosorbide 40 mg tid Off carvedilol while being on dobutamine Continue to monitor Assessment & Plan (05/31/2020 11:11 AM CDT): On home carvedilol, held due to 1st degree HB with prolonged KY interval, borderline HR (56-60) - Start amlodipine 5mg Assessment & Plan (05/30/2020 1:28 PM CDT): On home carvedilol, held due to 1st degree HB with prolonged KY interval, borderline HR (56-60) - Start amlodipine 5mg Assessment & Plan (05/29/2020 10:58 AM CDT): On home carvedilol, held due to 1st degree HB with prolonged KY interval, borderline HR (56-60) - Start amlodipine 5mg Assessment & Plan (05/26/2020 12:36 PM CDT): On home carvedilol, held due to 1st degree HB with prolonged KY interval, borderline HR (56-60) - Start amlodipine 5mg Assessment & Plan (04/09/2018 2:22 PM CDT): Blood pressure within target Resolved Problems Problem Noted Date Diagnosed Date Resolved Date Diabetic ulcer of right fifth toe 11/14/2020 12/01/2020 Overview (11/17/2020): Added automatically from request for surgery [id number] Foot ulcer ([facility]) 11/14/2020 021 Overview (11/22/2020): Added automatically from request for surgery [id number] Ulcer of right foot with bon e involvement without evidence of necrosis ([facility]) 11/14/2020 0 12/01/2020 Overview (11/22/2020): Added automatically from request for surgery [id number] Wound of left leg 11/14/2020 12/01/2020 Overview (11/25/2020): Added automatically from request for surgery [id number] Immunizations Immunization Administration Dates Next Due Influenza, Quadrivalent, Spl it, Preservative Free, Intramuscular 07/01/2020 Influenza, Unspecified 06/16/2017,06/02/2017 Social History Tobacco Use Types Packs/Day Years Used Date Smoking Tobacco: Former Cigarettes 0.5 42 1 978 - 2019 Smokeless Tobacco: Never Comments:on and off Alcohol [...] week 03/12/2023 How often do you attend [facility] or anglican services? Never 03/12/2023 Do you belong to any clubs o r organizations such as alevism groups, unions, fraternal or athletic groups, or [...] place to sleep or slept in a senior living (including now)? No 03/12/2023 Personal Safety Answer Date Recorded Have you ever been in or are you currently in a harmful physical or emotional relationship or is someone making you feel afraid or unsafe? Denies 04/16/2023 Sex and Gender Information Value Date Recorded Sex Assigned at Not on file Legal Sex Male 4:17 AM [employer] Gender Identity Not on file Sexual Orientation Not on file Last Filed Vital Signs Vital Sign Reading [...] 04/16/2023 2:00 AM CDT Plan of Treatment Not on file Medical Devices Implanted Type Area Processing Talc And Borate Supervisor Device Identifier Shelf Expiration Date Model / Serial / Lot [employer] [id number] - [id number] - [id number] Implanted:Qty: 1 on 02/24/2020 by Jeremias May MD at [facility] Advanced Medicine Lens Left: Eye [employer] 09/01/2022 [id number] / [id number] / Vessix [id number] Zilver Ptx 7mm 40mm 125cm Drug Elute Otw Delivery System - [id number] - [id number] Implanted:Qty: 1 on 09/16/2020 by Frandy Colunga MD at [facility] Stent Right: Femoral Vessix 12/02/2021 [id number] / [id number] / [id number] [employer] [id number] Vascade 6/7fr Bioabsorbable Vascular System Compression Collagen - [id number] Implanted:Qty: 1 on 11/24/2020 by Eliseo Akins MD at [facility] [employer] 08/04/2022 [id number] / [id number] Procedures Procedure Name Priority Date/Time Associated Diagnosis Comments EGFR Routine 04/30/2023 3:09 AM CDT HEMOGLOBIN A1C STAT 02/15/2023 5:16 AM CDT LIPID PANEL STAT 02/15/2023 5:16 AM CDT COLONOSCOPY 11/03/2021 12:44 PM [employer] HEPATITIS C ANTIBODY Routine 09/20/2020 8:35 PM [employer] from Last 3 Months or Most Recently Relevant to Health Maintenance Results * eGFR (04/30/2023 3:09 AM CDT) eGFR 20 mL/min/1. 73 m2 [facility] Comment: Interpretive Data Reference Interval Normal >/= [...] 3:09 AM CDT 04/30/2023 4:44 AM CDT us Washington Little MD LAB BLOOD ORDERABLES Final Result [facility] [address] [facility] Department [place] [address] * Hemoglobin A1c (02/15/2023 5:16 AM CDT) Hgb A1C 5.5 4.0 - 5.6 % [facility] Estimated Average Glucose 111 mg/dL [facility] Comment: The ADA recommends reporting an estimated Average Glucose (eAG) with all Hemoglobin A1c results using the equation derived from a study of 507 normal and diabetic adults. Minority populations were underrepresented and children were not included. (Diabetes Care 2020; 43(S1): S66-S76). The eAG is not equivalent to a fasting glucose. Blood 02/15/2023 5:16 AM CDT 02/15/2023 6:02 AM CDT us Marcella Arias MD LAB BLOOD ORDERABLES Final Result [facility] Department [place] [address] * (ABNORMAL) Lipid panel (02/15/2023 5:16 AM CDT) Cholesterol 75 30 - 199 mg/dL [facility] Comment: Interpretive Data Ages < or = [...] revised on 2018. Triglycerides 81 <=149 mg/dL [facility] Comment: Interpretive Data Ages < or = [...] revised on 2018. HDL 26(L) >=40 mg/dL [facility] Comment: Interpretive Data Ages < or = [...] on 2018. LDL, calculated 33 <=129 mg/dL [facility] Comment: Interpretive Data Ages < [...] revised on 2018. Non-HDL Cholesterol 49 mg/dL [facility] Comment: Interpretive Data Ages < [...] last revised on 2018. Chol/HDL ratio 3 [facility] Blood 02/15/2023 5:16 AM CDT 02/15/2023 5:57 AM CDT us Marcella Arias MD LAB BLOOD ORDERABLES Final Result [facility] Department [place] [address] * COLONOSCOPY (11/03/2021 12:44 PM [employer]) Anatomical Region Laterality Modality Other Narrative Procedure Note Brayden Lerma MD - 11/03/2021 12:44 PM CST [facility] Patient Name: Kobi Salter Procedure Date: 11/03/2021 12:44 PM Date of : 1965 Admit Type: Outpatient Age: 56 Gender: Male Note Status: Finalized Attending MD: Brayden Lerma M.D. Procedure Date: 11/03/2021 Procedure: Colonoscopy Indications: Chronic diarrhea Patient Profile: This is a 56 year old male. Diarrhea. Providers: Brayden Lerma M.D., Teresa Ross, TANYA (Anesthesia Staff), Gini Izquierdo RN, Jose A Vuong,Patient Relations Representative Referring MD: Jewels Lamas M.D. Medicines: Monitored [...] bowel preparation was evaluated using the BBPS ([place] Bowel Preparation Scale)with scores of: Right Colon [...] Note Initiated On: 11/03/2021 12:44 PM us Bradyen Lerma MD ENDOSCOPY PROCEDURES Final Re sult * Hepatitis C antibody (09/20/2020 8:35 PM [employer]) Hep C Ab Nonreactive Nonreactive [facility] Comment:Antibodies to HCV no t detected. Does NOT exclude the possibility of recent exposure to HCV. Blood specimen (specimen) 09/20/2020 8:35 PM [employer] 09/20/2020 10:17 PM [employer] Jasson Teague NP LAB MICROBIOLOGY - GENE RAL ORDERABLES Final Result [facility] Department [place] [address] from Last 3 Months or Most Recently Relevant to Health Maintenance Additional Health Concerns Infection Onset Date Last Indicated MDR gram neg/ESBL 04/16/2023 04/16/2023 C. difficile 04/26/2023 04/26/[address] [place] [address] MEDICARE IDPA [facility] [place] [address] Advance Directives For more information, please contact: [phone] Documents on File Type Date Recorded Patient Product Marketing Specialist Expl anation ADVANCE DIRECTIVE 09/25/2020 7:52 AM POWER OF SPOUT LINER HELPER-MEDICAL * Full Code (Latest Code Status on [...] 11:56 AM 05/31/2021 12:12 AM Care Teams Senior Underwriter Relationship Specialty Start Date End Date No, Physician PCP - General 02/14/23 Frandy Colunga MD Surgeon Vascular Surgery 02/28/21 Alcon Quintanilla DPM Surgeon Podiatry 02/28/21 Theodore Solis MD [address] [place] [id number] Consulting Physician Internal Medicine 03/16/23 Raul Lynn IV, MD [address] [place] [id number] Consulting Physician General Surgery 04/30/23
--- OUTSIDE RECORDS SUMMARY | 2024-10-19 12:38 | XMS_ITS ---
Author Organization [facility] [address] Address [address] [place] [address] Care Team Providers Care Network Systems Integrator Name Role Phone Frandy Colunga MD Unavailable [phone] Alcon Quintanilla DPM Unavailable No, Physician Primary Care Provider [phone] Theodore Solis MD Unavailable Leah MARINO MD, Raul Woodard Unavailable Dialysis Access Sites Type Status Location Placement Date Removal Da te Hemodialysis AV Access 02/20/21 Upper arm Active Right Upper Arm - Anterior 02/20/2021 Hemodialysis Cath Double Inactive Right Breast - Upper 05/17/2021 Hemodialysis Cath Double Inactive Right Breast - Upper 0 02/22/2021 05/17/2021 AV fistula Inactive 02/22/2021 03/12/2023 Procedures Procedure Name Priority Date/Time Associated Diagnosis Comments EGFR Routine 04/30/2023 3:09 AM CDT HEMOGLOBIN A1C STAT 02/15/2023 5:16 AM CDT LIPID PANEL STAT 02/15/2023 5:16 AM CDT COLONOSCOPY 11/03/2021 12:44 PM PLATFORM SUPERVISOR HEPATITIS C ANTIBODY Routine 09/20/2020 8:35 PM PLATFORM SUPERVISOR from Last 3 Months or Most Recently Relevant to Health Maintenance Allergies Active Allergy Reactions Criticality Noted Date [...] total) by mouth daily 30 tablet 03/17/20 23 Active traMADoL (ULTRAM) 50 mg tablet Take [...] xray aligned, ortho fu being arranged by CEE, consider fu xrays in 2 weeks if [...] no signs of displacement. Discussed extensively with national business director and therapy. We will proceed with [...] GI. I reminded patient has sister and national business director at this appointment at [facility] at 1:[address] Bradley. We [...] was consulted Sepsis without acute organ dysfunction Assessment & Plan (03/11/2023 9:46 PM CDT): [...] presented with mental status changes from the care home and found to have acute cholecystitis. Likely acute metabolic encephalopathy. Treat underlying cause. Mental status is improving. Closed left subtrochanteric femur fracture, sequ christiana 02/28/2023 Assessment & Plan (04/09/2023 7:04 PM CDT): Ortho fu pending, don aware Assessment & Plan (04/03/2023 5:26 PM CDT): Nonoperative management was recommended at [facility] earlier this summer. We will arrange outpatient follow up with Orthopedics but seems to be asymptomatic on that leg Assessment & Plan (03/26/2023 3:12 PM CDT): As per HPI, pain seems somewhat better controlled on current regimen. Recent x- rays did not show any new fractures. I reminded national business director the patient appears to still need appointment made with Orthopedics at [place]. Phone #[phone] Assessment & Plan (03/18/2023 4:48 PM CDT): Pain controlled on oxycodone and methocarbamol Dw pt and sister marilou who was present some ams sx could be due to pain meds Currently co pain but eventually want to try to wean these Has ortho and nsgy fu in apr, per DON fac is aware Assessment & Plan (03/06/2023 4:15 PM CDT): Continue physical therapy as well as pain control with oxycodone. Discussed with national business director about getting follow up with Orthopedics [...] status seems to be slowly improving. Reminded national business director that patient has on April 23 appointment with Neurosurgery at [facility] at 1:30 p.m. along with the details [...] to be clinically improving neurologically. Discussed with national business director about getting neurosurgery follow up in about 3 weeks. We will get her that information Assessment & Plan (02/28/2023 9:47 AM CDT): Clinically improving slowly Cont therapy Nsgy fu in 4 weeks Acute cholangitis 12/06/2022 Irritable bowel syndrome with diarrhea 2 Assessment & Plan (02/08/2022 10:18 AM CDT): Continue Donaldo and chu johnson Assessment & Plan (12/06/2021 1:43 PM [...] significant histopathologic alteration. Reviewed with pt. Continue lomotil and questran. Started Dicyclomine Chronic rectal pain 08/08/2021 Assessment & Plan (10/27/2021 3:09 PM PLATFORM SUPERVISOR): EGD/Colonoscopy scheduled for 11/03/21 Hold aspirin 10/29/21 Assessment & Plan (08/15/2021 1:41 PM PLATFORM SUPERVISOR): Patient was referred for colonoscopy and has appointment with GI. Abdominal pain has resolved. Assessment & Plan (08/08/2021 12:33 PM PLATFORM SUPERVISOR): Last colonoscopy 2012 (Unavailable). Recurrent rectal pain and diarrhea. No hemorrhoids. Check CBC. Encounter for surgical after care following surgery of circulatory system 06/16/2021 Chronic diarrhea 06/06/2021 Assessment & Plan (10/03/2021 9:10 AM PLATFORM SUPERVISOR): Pt was given Lomotil due to diarrhea and now c/o constipation. Resume questran and loperamide when constipation resolved. Assessment & Plan (07/28/2021 12:53 PM PLATFORM SUPERVISOR): Pt was given Lomotil due to diarrhea and now c/o constipation. Resume questran and loperamide when constipation resolved. Assessment & Plan (07/18/2021 1:25 PM PLATFORM SUPERVISOR): Continue cholestyramine and loperamide. Assessment & [...] therapy Assessment & Plan (10/03/2021 9:09 AM PLATFORM SUPERVISOR): Patient's pain is controlled with Marianna Patient needs AKA wound functional level for prosthesis for transfer and ambulation on level surfaces at a fixed candence Assessment & Plan (06/14/2021 2:19 PM CDT): Percocet change to Marianna as patient could not tolerate Assessment & Plan (05/31/2021 1:38 PM CDT): Continue PT/OT. Recurrent major depressive disorder, in remissio n 05/31/2021 Assessment & Plan (03/18/2023 4:46 PM CDT): Cont remeron, stable but fluctuates due to recent hosp stay and illnesses Assessment & Plan (07/28/2021 12:53 PM PLATFORM SUPERVISOR): Continue Remeron and Zoloft. Assessment & [...] tomorrow. Assessment & Plan (10/03/2021 9:11 AM PLATFORM SUPERVISOR): Continue Tradjenta and Glargine. Blood sugars have been stable between 70 and 150 Assessment & Plan (09/05/2021 12:27 PM PLATFORM SUPERVISOR): Continue Tradjenta and Glargine. Check A1c every 90 days. Assessment & Plan (08/01/2021 11:57 AM PLATFORM SUPERVISOR): Blood glucose 110 - 138 Continue Glargine and Tradjenta Assessment & Plan (07/18/2021 1:24 PM PLATFORM SUPERVISOR): Continue Tradjenta and glargine insulin. Assessment [...] - Given IV phos per renal 05/29 prison (current) use of antibiotics Assessment & Plan [...] chair or laying in bed. Atrial fibrillation ([facility]) 02/22/2021 Assessment & Plan (03/18/2023 4:45 PM CDT): Stable and rate controlled, on asa, need to hold off other oac due to hx of ich Assessment & Plan (10/03/2021 9:09 AM PLATFORM SUPERVISOR): Not on anticoagulation. Continue Metoprolol, Aspirin. Assessment & Plan (08/01/2021 11:54 AM PLATFORM SUPERVISOR): Not on anticoagulation. Continue Metoprolol, Aspirin. Assessment & Plan (05/16/2021 9:05 AM CDT): - Not on anticoagulation - Continue metoprolol Assessment & Plan (02/22/2021 10:43 AM CDT): - Not on anticoagulation - Continue metoprolol Fall 02/22/2021 Assessment & Plan (02/22/2021 3:28 PM CDT): - Patient fell at facility 02/21 [facility], states he rolled out of bed and [...] QAM if tolerating. Gangrene of right foot ([facility]) 11/15/2020 Assessment & Plan (05/26/2021 7:20 AM [...] but narrowed to daptomycin after HD sessions (//) - Pain control with POPM - OR [...] 11/30, wound vac did not stay on 2/2 patient oozy after OR (on ASA and Plavix), dressing reinforced multiple times. - Plan to return to the OR 12/05 for further debridement and wound vac placement - Planning to transfer to [facility] Primary service for further management 12/01 Wound of left leg 11/14/2020 Overview (12/05/2020): Added automatically from request for surgery [id number] End-stage renal disease on hemodialysis ([facility] ) 09/14/2020 Assessment & Plan (04/09/2023 7:04 [...] CDT): Conts on hd at facility w campos labs, tolerating it well today Assessment & [...] hemodialysis. Assessment & Plan (10/27/2021 3:10 PM PLATFORM SUPERVISOR): Continue hemodialysis weekly. Assessment & Plan (08/07/2021 10:27 AM PLATFORM SUPERVISOR): Currently on Sevelamer and Ferrous sulfate. Hemodialysis three days weekly. Assessment & Plan (07/14/2021 1:51 PM PLATFORM SUPERVISOR): Continue Sevelamer and Ferrous sulfate. Assessment [...] AM CDT): - Nephrology following - Resuming // schedule Assessment & Plan (09/21/2020 8:33 AM PLATFORM SUPERVISOR): - ESRD on dialysis as of August 2020. Dialysis access via tunneled catheter. Current HD schedule M/W/F. - Consulted renal for iHD; patient to be dialyzed M/W/F - Currently trying to switch home HD units to ease transportation issue with new SNF - Social work discussing with renal coordinator Severe protein-calorie malnutrition ([facility]) Assessment & Plan (05/23/2021 7:38 AM CDT): - BMI 23 - Appreciate nutrition recs. - Nephrovite started. Assessment & Plan (02/24/2021 2:51 PM CDT): - BMI 25 - Nutrition consult: Continue renal, consistent carb diet Ordered Nepro TID. Encouraged the pt to drink them between meals. Continue multivitamin, Folic acid, iron, Renvela. Assessment & Plan (09/15/2020 11:00 AM PLATFORM SUPERVISOR): - Related to increased needs, chronic illness/injury and wounds - Nutrition consulted - Consistent carb diet. Will allow double portions of meat. - Supplements ordered Foot ulcer due to secondary DM ([facility]) 021 Assessment & Plan (09/21/2020 8:32 AM PLATFORM SUPERVISOR): Right foot wounds appeared about 1 [...] Continue aspirin + Plavix daily Atherosclerosis of yuhaaviatam artery of right lower extremity 09/06/2020 Overview (09/06/2020): Added automatically from request for surgery [id number] Peripheral arterial disease (CMS/HCC) 09/06/2020 Overview (09/06/2020): Added automatically from request for surgery [id number] Assessment & Plan (03/06/2023 4:14 PM CDT): Continue medical management with statin. Patient is status post bilateral amputations for this reason Assessment & Plan (10/03/2021 9:13 AM PLATFORM SUPERVISOR): Patient to continue aspirin Assessment & [...] chair Assessment & Plan (09/18/2020 8:47 AM PLATFORM SUPERVISOR): - s/p left BKA 05/2020. Presents [...] 06/23/2020 Assessment & Plan (09/05/2021 12:26 PM PLATFORM SUPERVISOR): Continue working with PT/OT. Follow up outpatient for prosthetic. Assessment & Plan (08/15/2021 1:43 PM PLATFORM SUPERVISOR): Continue PT/OT Continue outpatient follow up for prosthetic on 08/21/21 (2pm), 08/28/21 (11am), and 09/06/21 (11am). Assessment & Plan (08/08/2021 12:35 PM PLATFORM SUPERVISOR): Seen outpatient for prosthetic yesterday and has follow up again 08/21/21 (2pm), 08/28/21 (11am), and 09/06/21 (11am) Assessment & Plan (08/07/2021 10:29 AM PLATFORM SUPERVISOR): Denies phanthom limb pain. Pain controlled cyclobenzaprine, Acetaminophen, and Gabapentin. Assessment & Plan (08/01/2021 11:53 AM PLATFORM SUPERVISOR): Continue Aspirin and Gabapentin. Pain well controlled. Assessment & Plan (07/07/2021 12:45 PM CDT): Follow-up outpatient for prosthesis (skein inspector) Continue gabapentin, acetaminophen, and physical and occupational therapy as tolerated. Assessment & Plan (06/29/2021 1:45 PM CDT): Patient measured for below-knee production quality analyst is yesterday and will follow-up for fitting (skein inspector). Incision well-healed. Continue PT/OT. Continue gabapentin and acetaminophen. Assessment & Plan (06/19/2021 1:55 PM CDT): Patient had follow-up with vascular surgeon. Sutures removed and patient recommended for residual limb production quality analyst. Pain well controlled. Continue PT/OT Assessment & Plan (06/08/2021 3:02 PM CDT): Patient unable to tolerate oxycodone due to increased confusion. Discussed with MD and will discontinue oxycodone and changed to Marianna to help with postoperative pain. 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 9/23 - Will need rehab after this admission as has no family available to help him - working well with PT and OT - SW aware and referrals sent Assessment & Plan (06/28/2020 10:30 AM CDT): -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 9/23 - Will need rehab after this admission as has no family available to help him - PT and OT - SW aware and referrals sent Assessment & Plan (06/27/2020 1:25 PM CDT): -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 9/23 - Will need rehab after this admission as has no family available to help him - PT and OT - SW aware and referrals sent Assessment & Plan (06/26/2020 12:04 PM CDT): -History of left guillotine bka [...] (06/23/2020 9:56 AM CDT): History of left guillotkim bka 05/19 closure of foot 05/25 Will need rehab after this admission as [...] bicarb supplement for acidosis - strict I&Os, Ruthy in place - monitor BMP Assessment & [...] bicarb supplement for acidosis - strict I&Os, Ruthy in place - monitor BMP - whole [...] bicarb supplement for acidosis - strict I&Os, Ruthy in place - monitor BMP Assessment & Plan (05/21/2020 3:07 PM CDT): Initially felt to be d/t cardiorenal from CHF exacerbation. Cr has trended up despite IV diuresis 2.35-->2.84. On my exam he appears euvolemic. Net -1.5L yesterday. - will stop IV lasix and restart home PO lasix 40mg bid - bicarb improving 16-->18. 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 (CMS/HCC) 05/19/2020 Assessment & Plan (07/14/2021 1:52 PM PLATFORM SUPERVISOR): Continue Lasix 40 mg daily Assessment & Plan (09/15/2020 10:36 AM PLATFORM SUPERVISOR): - Echo from 05/2020 LVEF 34% [...] degree HB on tele w/ very prolonged CO interval and resting bradycardia to mid 50-60s [...] degree HB on tele w/ very prolonged CO interval and resting bradycardia to mid 50-60s [...] degree HB on tele w/ very prolonged CO interval and resting bradycardia to mid 50s, [...] degree HB on tele w/ very prolonged CO interval and resting bradycardia to mid 50s, [...] degree HB on tele w/ very prolonged CO interval, consider restarting - on Entresto 49-51 [...] degree HB on tele w/ very prolonged CO interval, consider restarting - on Entresto 49-51 [...] degree HB on tele w/ very prolonged CO interval. Restart if able. - on Entresto [...] degree HB on tele w/ very prolonged CO interval. Restart if able. - on Entresto [...] Plan (05/19/2020 9:20 AM CDT): - BNP [id number] - Restart home carvedilol - Diuresis 2017 [...] diarrhea --> loperamide Gangrene of left foot ([facility]) 05/18/2020 Overview (05/18/2020): Added automatically from request for surgery [id number] Assessment & Plan (06/01/2020 10:34 AM CDT): [...] (05/19/2020): Added automatically from request for surgery [id number] Assessment & Plan (02/28/2023 9:46 AM CDT): [...] eye. Assessment & Plan (09/22/2019 3:29 PM PLATFORM SUPERVISOR): New cataract evaluation today Mature cataract [...] on admission with NSR with severely prolonged CO - as noted above, resuming low dose coreg - telemetry Assessment & Plan (06/29/2020 9:55 AM CDT): History of post-op AF - Not on AC on admission, ECG on admission with NSR with severely prolonged CO - as noted above, resuming low dose coreg - telemetry Assessment & Plan (06/28/2020 10:30 AM CDT): History of post-op AF - Not on AC on admission, ECG on admission with NSR with severely prolonged CO - Holding coreg for now while on dobutamine - telemetry Assessment & Plan (06/27/2020 1:26 PM CDT): History of post-op AF - Not on AC on admission, ECG on admission with NSR with severely prolonged CO - Holding coreg for now while on dobutamine - telemetry Assessment & Plan (06/26/2020 12:02 PM CDT): History of post-op AF - Not on AC on admission, ECG on admission with NSR with severely prolonged CO - Holding coreg for now while on dobutamine - telemetry Assessment & Plan (06/25/2020 2:28 PM CDT): History of post-op AF - Not on AC on admission, ECG on admission with NSR with severely prolonged CO - Holding coreg for now while on dobutamine - telemetry Assessment & Plan (06/24/2020 3:35 PM CDT): History of post-op AF - Not on AC on admission, ECG on admission with NSR with severely prolonged CO - Holding coreg for now while on dobutamine - telemetry Assessment & Plan (06/23/2020 9:22 AM CDT): History of post-op AF - Not on AC on admission, ECG on admission with NSR with severely prolonged CO - Holding coreg for now while on dobutamine - telemetry Assessment & Plan (06/22/2020 12:01 PM CDT): History of post-op AF - Not on AC on admission, ECG on admission with NSR with severely prolonged CO - Holding coreg for now while on dobutamine - telemetry Assessment & Plan (06/21/2020 10:44 AM CDT): History of post-op AF - Not on AC on admission, ECG on admission with NSR with severely prolonged CO - Holding coreg for now while on dobutamine - telemetry Assessment & Plan (06/20/2020 11:49 AM CDT): History of post-op AF - Not on AC on admission, ECG on admission with NSR with severely prolonged CO - Holding coreg for now while on [...] - Pt remains under wound care at [facility] [place] [facility]. - Discussed with patient the rational for treatment, culture results, risk of recurrent infection, signs/symptoms of recurrent infection, and to contact ID clinic with any questions or concerns. Assessment & Plan (06/30/2020 10:47 AM CDT): S/p L BKA - Continue daily wound care - PT/OT eval and treat Patient will be going to [facility] tomorrow. Assessment & Plan (06/29/2020 9:57 AM [...] Obesity 01/03/2015 Diabetes mellitus type II, uncontrolled ([facility] ) 08/18/2013 Overview (05/26/2020): May 2020: C-peptide [...] QID Assessment & Plan (09/15/2020 10:36 AM PLATFORM SUPERVISOR): - Hgb A1c 8.5% 05/2020, 5.5% [...] as current doses - follow-up with his rail car painter/sandblaster at [facility] for long-term therapy decisions. Consider GLP-1 [...] (05/25/2021 10:21 AM CDT): - s/p CABG 2018 with [...] plavix Assessment & Plan (09/14/2020 11:01 AM PLATFORM SUPERVISOR): - s/p CABG [address] [...] minimize risk of hypoglycemia Diabetic peripheral neuropathy ([facility]) 012 Assessment & Plan (03/18/2023 4:45 PM [...] Isordil Assessment & Plan (09/17/2020 6:52 AM PLATFORM SUPERVISOR): - VS Q4 hrs - Continue home Lasix, hydralazine, metoprolol, Isordil Assessment & Plan (06/28/2020 10:41 AM CDT): - Elevated blood pressure - continue hydralazine 100 mg tid, isosorbide 40 mg tid - Coreg held with recent CHARTERED FINANCIAL ANALYST, likely resume low dose tomorrow Assessment & Plan (06/27/2020 1:27 PM CDT): - Elevated blood pressure - continue hydralazine 100 mg tid, isosorbide 40 mg tid - Coreg held with recent CHARTERED FINANCIAL ANALYST, likely resume tomorrow Assessment & Plan (06/26/2020 12:05 PM CDT): -Elevated blood pressure - continue hydralazine 100 mg tid, isosorbide 40 mg tid -Coreg held while on CHARTERED FINANCIAL ANALYST Assessment & Plan (06/25/2020 2:31 PM CDT): -Elevated blood pressure - continue hydralazine 100 mg tid, isosorbide 40 mg tid -Coreg held while on CHARTERED FINANCIAL ANALYST Assessment & Plan (06/24/2020 3:58 PM CDT): -Elevated blood pressure - continue hydralazine 100 mg tid, isosorbide 40 mg tid -Coreg held while on CHARTERED FINANCIAL ANALYST Assessment & Plan (06/23/2020 10:00 AM CDT): Elevated blood pressure - continue hydralazine 100 mg tid, isosorbide 40 mg tid Off carvedilol while being on dobutamine Continue to monitor Assessment & Plan (05/31/2020 11:11 AM CDT): On home carvedilol, held due to 1st degree HB with prolonged CO interval, borderline HR (56-60) - Start amlodipine 5mg Assessment & Plan (05/30/2020 1:28 PM CDT): On home carvedilol, held due to 1st degree HB with prolonged CO interval, borderline HR (56-60) - Start amlodipine 5mg Assessment & Plan (05/29/2020 10:58 AM CDT): On home carvedilol, held due to 1st degree HB with prolonged CO interval, borderline HR (56-60) - Start amlodipine 5mg Assessment & Plan (05/26/2020 12:36 PM CDT): On home carvedilol, held due to 1st degree HB with prolonged CO interval, borderline HR (56-60) - Start amlodipine 5mg Assessment & Plan (04/09/2018 2:22 PM CDT): Blood pressure within target Immunizations Immunization Administration Dates Next Due Influenza, [...] week 03/12/2023 How often do you attend [facility] or judaism services? Never 03/12/2023 Do you belong to any clubs o r organizations such as jewish groups, unions, fraternal or athletic groups, or [...] place to sleep or slept in a alf (including now)? No 03/12/2023 Personal Safety Answer Date Recorded Have you ever been in or are you currently in a harmful physical or emotional relationship or is someone making you feel afraid or unsafe? Denies 04/16/2023 Sex and Gender Information Value Date Recorded Sex Assigned at Not on file Legal Sex Male 4:17 AM PLATFORM SUPERVISOR Gender Identity Not on file Sexual [...] Mass Index 23.62 04/16/2023 2:00 AM CDT Results * eGFR (04/30/2023 3:09 AM CDT) [...] MD LAB BLOOD ORDERABLES Final Result [facility] [address] [place] [address] * Hemoglobin A1c (02/15/2023 5:16 AM CDT) Hgb A1C 5.5 4.0 - 5.6 % [facility] Estimated Average Glucose 111 mg/dL LEANDRO [...] Arias MD LAB BLOOD ORDERABLES Final Result [facility] Department [place] [address] * (ABNORMAL) Lipid panel (02/15/2023 5:16 AM CDT) Cholesterol 75 30 - 199 mg/dL LEANDRO [facility] Comment: Interpretive Data Ages < or = [...] on 2018. Triglycerides 81 <=149 mg/dL [facility] Comment: Interpretive Data Ages [...] on 2018. HDL 26(L) >=40 mg/dL LEANDR[facility] Comment: Interpretive Data Ages < or = [...] on 2018. LDL, calculated 33 <=129 mg/dL [facility] Comment: Interpretive Data Ages < or = [...] revised on 2018. Non-HDL Cholesterol 49 mg/dL [facility] Comment: Interpretive Data Ages < or = [...] last revised on 2018. Chol/HDL ratio [address] [facility] Blood 02/15/2023 5:16 AM CDT 02/15/2023 5:57 AM CDT us Marcella Arias MD LAB BLOOD ORDERABLES Final Result [facility] Department [place] [address] * COLONOSCOPY (11/03/2021 12:44 PM PLATFORM SUPERVISOR) Anatomical Region Laterality Modality Other Narrative Procedure Note Brayden Lerma MD - 11/03/2021 12:44 PM CST [facility] Patient Name: Kobi Salter Procedure Date: 11/03/2021 12:44 PM Date of : 1965 Admit Type: Outpatient Age: 56 Gender: Male Note Status: Finalized Attending MD: Brayden Lerma M.D. Procedure Date: 11/03/2021 Procedure: Colonoscopy Indications: Chronic diarrhea Patient Profile: This is a 56 year old male. Diarrhea. Providers: Brayden Lerma M.D., Teresa Ross, CABLE INSPECTOR (Anesthesia Staff), Gini Izquierdo, NOEMI, Jose A Vuong,Patient Scheduling Coordinator Referring MD: Jewels Lamas M.D. Medicines: Monitored [...] bowel preparation was evaluated using the BBPS ([place] Bowel Preparation Scale)with scores of: Right Colon [...] * Hepatitis C antibody (09/20/2020 8:35 PM PLATFORM SUPERVISOR) Hep C Ab Nonreactive Nonreactive [facility] Comment:Antibodies to HCV no t detected. Does NOT exclude the possibility of recent exposure to HCV. Blood specimen (specimen) 09/20/2020 8:35 PM PLATFORM SUPERVISOR 09/20/2020 10:17 PM PLATFORM SUPERVISOR us Jasson Teague NP LAB MICROBIOLOGY - GENE RAL ORDERABLES Final Result LEANDRO CLARKE [facility] Department [place] [address] from Last 3 Months or Most Recently Relevant to Health Maintenance
--- OUTSIDE RECORDS SUMMARY | 2024-10-19 12:38 | XMS_ITS ---
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) ACTIVE 09/24/2020 CHRONIC MULTIFOCAL OSTEOMYEL ITIS, UNSPECIFIED SITE (M86.30 - ICD-10-CM) ACTIVE 03/01/2021 TYPE 2 DIABETES MELLITUS WIT HOUT COMPLICATIONS (E11.9 - ICD-10-CM) ACTIVE 09/24/2020 PRESENCE OF AORTOCORONARY BYPASS GRAFT (Z95.1 - ICD-10 -CM) ACTIVE 09/24/2020 LEFT VENTRICULAR FAILURE, UNSPECIFIED (I50.1 - ICD-10- CM) ACTIVE 09/24/2020 OSTEOMYELITIS, UNSPECIFIED (M86.9 - ICD-10-CM) ACTIVE 09/24/2020 SHORTNESS OF BREATH (R06.02 - ICD-10-CM) ACTIVE 09/24/2020 ACUTE ON CHRONIC COMBINED SY STOLIC (CONGESTIVE) AND DIASTOLIC (CONGESTIVE) HEART FAILURE (I50.43 - ICD-10-CM) ACTIVE END STAGE RENAL DISEASE (N18.6 - ICD-10-CM) ACTIVE 09/24/2020 MUSCLE WEAKNESS (GENERALIZED) (M62.81 - ICD-10-CM) ACT OPAL 09/26/2020 OTHER LACK OF COORDINATION (R27.8 - ICD-10-CM) ACTIVE 12/12/2020 ENTEROCOLITIS DUE TO CLOSTRI DIUM DIFFICILE, NOT SPECIFIED RECURRENT (A04.72 - ICD-10-CM) ACTIVE 10/12/2020 OTHER MUSCLE SPASM (M62.838 - ICD-10-CM) ACTIVE 03/01/2021 FOLATE DEFICIENCY ANEMIA, UNSPECIFIED (D52.9 - ICD-10- CM) ACTIVE 03/01/2021 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, OR END STAGE RENAL DISEASE (I13.2 - ICD-10-CM) ACTIVE 03/01/2021 BENIGN PROSTATIC HYPERPLASIA WITHOUT LOWER URINARY TRACT SYMPTOMS (N40.0 - ICD-10-CM) ACTIVE 03/01/2021 CONSTIPATION, UNSPECIFIED (K59.00 - ICD-10-CM) ACTIVE 12/29/2020 GASTROINTESTINAL HEMORRHAGE, UNSPECIFIED (K92.2 - ICD-10-CM) ACTIVE 12/29/2020 CHRONIC COMBINED SYSTOLIC (C ONGESTIVE) AND DIASTOLIC (CONGESTIVE) HEART FAILURE (I50.42 - ICD-10-CM) ACTIVE 12/29/2020 NONINFECTIVE GASTROENTERITIS AND COLITIS, UNSPECIFIED (K52.9 - ICD-10-CM) ACTIVE 12/29/2020 ENCOUNTER FOR CHANGE OR JOHNNY SKIP OF SURGICAL WOUND DRESSING (Z48.01 - ICD-10-CM) ACTIVE 12/23/2020 UNSPECIFIED HEARING LOSS, UN SPECIFIED EAR (H91.90 - ICD-10-CM) ACTIVE 12/11/2020 ANEMIA IN CHRONIC KIDNEY DISEASE (D63.1 - ICD-10-CM) A CTIVE 12/11/2020 CATARACT EXTRACTION STATUS, RIGHT EYE (Z98.41 - ICD-10 -CM) ACTIVE 12/11/2020 METABOLIC ACIDEMIA IN [place], UNSPECIFIED (P19.9 - ICD-10-CM) ACTIVE 12/11/2020 NON-PRESSURE CHRONIC ULCER O F SKIN OF OTHER SITES WITH UNSPECIFIED SEVERITY (L98.499 - ICD-10-CM) ACTIVE 10/28/2020 DIFFICULTY IN WALKING, NOT E LSEWHERE CLASSIFIED (R26.2 - ICD-10-CM) ACTIVE 09/27/2020 HYPERKALEMIA (E87.5 - ICD-10-CM) ACTIVE 09/24/19 21 AGE-RELATED NUCLEAR CATARACT , RIGHT EYE (H25.11 - ICD-10-CM) ACTIVE 09/24/2020 APHAKIA, LEFT EYE (H27.02 - ICD-10-CM) ACTIVE VITAMIN D DEFICIENCY, UNSPECIFIED (E55.9 - ICD-10-CM) ACTIVE 09/24/2020 NONSPECIFIC INTRAVENTRICULAR BLOCK (I45.4 - ICD-10-CM) ACTIVE 09/24/2020 ANEMIA, UNSPECIFIED (D64.9 - ICD-10-CM) ACTIVE 0 09/24/2020 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) ACTIVE 09/24/2020 IRRITABLE BOWEL SYNDROME WITH DIARRHEA (K58.0 - ICD-10 -CM) ACTIVE 02/09/2021 ACUTE POSTHEMORRHAGIC ANEMIA (D62 - ICD-10-CM) ACTIVE 12/29/2020 MAJOR DEPRESSIVE DISORDER, R ECURRENT, UNSPECIFIED (F33.9 - ICD-10-CM) ACTIVE 12/11/2020 UNSPECIFIED ATRIAL FLUTTER (I48.92 - ICD-10-CM) ACTIVE 12/11/2020 URINARY TRACT INFECTION, SIT E NOT SPECIFIED (N39.0 - ICD-10-CM) ACTIVE 09/24/2020 COMPLETE TRAUMATIC AMPUTATIO N AT LEVEL BETWEEN KNEE AND ANKLE, LEFT LOWER LEG, SUBSEQUENT ENCOUNTER (S88.112D - ICD-10-CM) ACTIVE 12/29/2020 GANGRENE, NOT ELSEWHERE CLASSIFIED (I96 - ICD-10-CM) A CTIVE 12/11/2020 ACUTE KIDNEY FAILURE, UNSPECIFIED (N17.9 - ICD-10-CM) ACTIVE 09/24/2020 ACIDOSIS (E87.2 - ICD-10-CM) ACTIVE 09/24/2020 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) ACTIVE 09/24/2020 UNSPECIFIED ATRIAL FIBRILLATION (I48.91 - ICD-10-CM) A CTIVE 09/24/2020 HYPERLIPIDEMIA, UNSPECIFIED (E78.5 - ICD-10-CM) ACTIVE 09/24/2020 ESSENTIAL (PRIMARY) HYPERTENSION (I10 - ICD-10-CM) ACT OPAL 09/24/2020 Results * 2019 NOVEL CORONAVIRUS, MIKAYLA Performed by: [id number] [facility] [address], [address] [place] [address] Component Value Range Date 2018 NOVEL CORONAVIRUS, MIKAYLA NOT DETECTED NOT DETECTED 05/20/2021 11:44 am EDT 2019 NOVEL CORONAVIRUS, MIKAYLA See Attachment 05/20/2021 11:44 am EDT * 2019 NOVEL CORONAVIRUS, MIKAYLA Performed by: [id number] [facility] [address], [address] [place] [address] Component Value Range Date 2018 NOVEL CORONAVIRUS, MIKAYLA NOT DETECTED NOT DETECTED 05/17/2021 10:14 am EDT 2019 NOVEL CORONAVIRUS, MIKAYLA See Attachment 05/17/2021 10:14 am EDT * 2019 NOVEL CORONAVIRUS, MIKAYLA Performed by: [id number] [facility] [address], [address] [place] [address] Component Value Range Date 2018 NOVEL CORONAVIRUS, MIKAYLA NOT DETECTED NOT DETECTED 2021 10:34 pm EDT 2019 NOVEL CORONAVIRUS, MIKAYLA See Attachment 2021 10:34 pm EDT * CBC W/DIFF Performed by: [address] [address] Component Value Range Date ANISOCYTOSIS 1+ NEGATIVE 2021 08:0 8 pm EDT MPV 8.5 fL 6.5-12.0 2021 08:0 8 pm EDT * Individual Tests: CMP-COMPREHENSIVE METABOLIC PNL / CREATINE KINASE (CPK) / CBC W/DIFF Performed by: [address] [id number] Component Value Range Date CREATINE KINASE (CPK) 22 IU/L 30-250 2020 08:08 pm EDT * CMP-COMPREHENSIVE METABOLIC PNL Performed by: [address] [address] Component Value Range Date BILIRUBIN, TOTAL 0.3 mg/dL 0.2-1.2 2021 08:08 pm EDT CALCIUM 8.2 mg/dL 8.4-10.2 2021 08:0 8 pm EDT CREATININE 4.5 mg/dL 0.6-1.3 2021 08:0 8 pm EDT GLUCOSE 117 2021 08:0 8 pm EDT A/G RATIO 0.8 0.8-2.0 2021 08:0 8 pm EDT BUN/CREATININE RATIO 8 6-34 021 08:08 pm EDT * CBC W/DIFF Performed by: [place] [id number] Component Value Range Date EOS 1.2 % 0.0-8.0 2021 08:0 8 pm EDT NEUTS (ABSOLUTE) 5.80 K/uL 1.50-7.60 2021 08:08 pm EDT EOS (ABSOLUTE) 0.10 K/uL 0.20-0.80 2021 08 :08 pm EDT MONOCYTES (ABSOLUTE) 0.70 K/uL 0.15-1.10 08:08 pm EDT HEMOGLOBIN 7.6 g/dL 14.0-18.0 2021 08:0 8 pm EDT * CMP-COMPREHENSIVE METABOLIC PNL Performed by: [place] [id number] Component Value Range Date POTASSIUM 4.6 mEq/L 3.5-5.3 2021 08:0 8 pm EDT SODIUM 142 mEq/L 136-145 2021 08:0 8 pm EDT BUN (UREA NITROGEN) 34 mg/dL 7-25 05/10/20 21 08:08 pm EDT CARBON DIOXIDE (CO2) 31 mEq/L 21-33 021 08:08 pm EDT CHLORIDE 101 mEq/L 98-110 2021 08:0 8 pm EDT * CBC W/DIFF Performed by: [place] [id number] Component Value Range Date RBC 2.41 M/cmm 4.00-6.60 2021 08:0 8 pm EDT MCHC 32.9 g/dL 31.0-36.5 2021 08:0 8 pm EDT MCH 31.6 pg 26.0-35.0 2021 08:0 8 pm EDT PLATELET 199 K/cmm 150-450 2021 08:0 8 pm EDT * CMP-COMPREHENSIVE METABOLIC PNL Performed by: [place] [id number] Component Value Range Date ALT (SGPT) 5 IU/L 4-55 2021 08:0 8 pm EDT * CBC W/DIFF Performed by: [place] [id number] Component Value Range Date WBC 7.0 K/cmm 4.5-10.8 2021 08:0 8 pm EDT HEMATOCRIT 23.2 % 42.0-54.0 2021 08:0 8 pm EDT * CMP-COMPREHENSIVE METABOLIC PNL Performed by: [place] [id number] Component Value Range Date PROTEIN, TOTAL 6.6 g/dL 6.0-8.3 2021 08 :08 pm EDT ALKALINE PHOS 55 IU/L 34-136 2021 08: 08 pm EDT AST (SGOT) 11 IU/L 4-40 2021 08:0 8 pm EDT ALBUMIN 3.0 g/dL 3.5-5.5 2021 08:0 8 pm EDT * CBC W/DIFF Performed by: [place] [id number] Component Value Range Date RDW 17.3 % 11.0-16.0 2021 08:0 8 pm EDT NEUTROPHILS 81.7 % 40.0-80.0 2021 08:0 8 pm EDT * CMP-COMPREHENSIVE METABOLIC PNL Performed by: [place] [id number] Component Value Range Date [id number] 14 mL/min/1.73 m2 >60 2021 08:08 pm EDT GFR- 16 mL/min/1.73 m2 >60 08:08 pm EDT * CBC W/DIFF Performed by: [place] [id number] Component Value Range Date MCV 96.3 fL 80.0-100.0 2021 08:0 8 pm EDT LYMPHS 6.2 % 13.0-48.0 2021 08:0 8 pm EDT BASO 0.6 % 0.0-2.0 2021 08:0 8 pm EDT LYMPHS (ABSOLUTE) 0.40 K/uL 0.90-5.50 2021 08:08 pm EDT MONOCYTES 10.3 % 2.0-12.0 2021 08:0 8 pm EDT * 2019 NOVEL CORONAVIRUS, MIKAYLA Performed by: [id number] [facility] [address], [address] [facility] [address] Component Value Range Date 2018 NOVEL CORONAVIRUS, MIKAYLA NOT DETECTED NOT DETECTED 05/02/2021 08:57 pm EDT 2019 NOVEL CORONAVIRUS, MIKAYLA See Attachment 05/02/2021 08:57 pm EDT * 2019 NOVEL CORONAVIRUS, MIKAYLA Performed by: [id number] [facility] [address], [address] [facility] [address] Component Value Range Date 2018 NOVEL CORONAVIRUS, MIKAYLA NOT DETECTED NOT DETECTED 04/27/2021 06:55 pm EDT 2019 NOVEL CORONAVIRUS, MIKAYLA See Attachment 04/27/2021 06:55 pm EDT * CBC W/DIFF Performed by: [place] [id number] Component Value Range Date HEMOGLOBIN 5.3 g/dL 14.0-18.0 04/21/2021 08:5 1 pm EDT * CMP-COMPREHENSIVE METABOLIC PNL Performed by: [address] [address] Component Value Range Date SODIUM 137 mEq/L 136-145 04/21/2021 08:5 1 pm EDT POTASSIUM 5.4 mEq/L 3.5-5.3 04/21/2021 08:5 1 pm EDT CHLORIDE 99 mEq/L 98-110 04/21/2021 08:5 1 pm EDT * CBC W/DIFF Performed by: [place] [id number] Component Value Range Date RBC 1.73 M/cmm 4.00-6.60 04/21/2021 08:5 1 pm EDT * CMP-COMPREHENSIVE METABOLIC PNL Performed by: [place] [id number] Component Value Range Date CARBON DIOXIDE (CO2) 28 mEq/L 21-33 021 08:51 pm EDT BUN (UREA NITROGEN) 67 mg/dL 7-25 04/21/20 08:51 pm EDT * CBC W/DIFF Performed by: [place] [id number] Component Value Range Date HEMATOCRIT 16.1 % 42.0-54.0 04/21/2021 08:5 1 pm EDT WBC 9.0 K/cmm 4.5-10.8 04/21/2021 08:5 1 pm EDT * CMP-COMPREHENSIVE METABOLIC PNL Performed by: [place] [id number] Component Value Range Date ALT (SGPT) <3 IU/L 4-55 04/21/2021 08:5 1 pm EDT * CBC W/DIFF Performed by: [address] [address] Component Value Range Date PLATELET 226 K/cmm 150-450 04/21/2021 08:5 1 pm EDT MCH 30.5 pg 26.0-35.0 04/21/2021 08:5 1 pm EDT MCHC 32.6 g/dL 31.0-36.5 04/21/2021 08:5 1 pm EDT LYMPHS (ABSOLUTE) 0.80 K/uL 0.90-5.50 04/21/2021 08:51 pm EDT MONOCYTES 9.7 % 2.0-12.0 04/21/2021 08:5 1 pm EDT BASO 0.8 % 0.0-2.0 04/21/2021 08:5 1 pm EDT LYMPHS 8.7 % 13.0-48.0 04/21/2021 08:5 1 pm EDT MCV 93.4 fL 80.0-100.0 04/21/2021 08:5 1 pm EDT * CMP-COMPREHENSIVE METABOLIC PNL Performed by: [place] [id number] Component Value Range Date GFR- 18 mL/min/1.73 m2 >60 08:51 pm EDT * CBC W/DIFF Performed by: [address] [id number] Component Value Range Date BASO (ABSOLUTE) 0.10 K/uL 0.00-0.30 04/21/2021 0 8:51 pm EDT * CMP-COMPREHENSIVE METABOLIC PNL Performed by: [place] [id number] Component Value Range Date JQS-[id number] 15 mL/min/1.73 m2 >60 04/21/2021 08:51 pm EDT * CBC W/DIFF Performed by: [place] [id number] Component Value Range Date NEUTROPHILS 79.6 % 40.0-80.0 04/21/2021 08:5 1 pm EDT RDW 17.8 % 11.0-16.0 04/21/2021 08:5 1 pm EDT * CMP-COMPREHENSIVE METABOLIC PNL Performed by: [address] [id number] Component Value Range Date AST (SGOT) 10 IU/L 4-40 04/21/2021 08:5 1 pm EDT ALBUMIN 2.6 g/dL 3.5-5.5 04/21/2021 08:5 1 pm EDT ALKALINE PHOS 39 IU/L 34-136 04/21/2021 08: 51 pm EDT PROTEIN, TOTAL 5.8 g/dL 6.0-8.3 04/21/2021 08 :51 pm EDT * CBC W/DIFF Performed by: [address] [id number] Component Value Range Date ANISOCYTOSIS 1+ NEGATIVE 04/21/2021 08:5 1 pm EDT MONOCYTES (ABSOLUTE) 0.90 K/uL 0.15-1.10 021 08:51 pm EDT EOS (ABSOLUTE) 0.10 K/uL 0.20-0.80 04/21/2021 08 :51 pm EDT EOS 1.2 % 0.0-8.0 04/21/2021 08:5 1 pm EDT NEUTS (ABSOLUTE) 7.20 K/uL 1.50-7.60 04/21/2021 08:51 pm EDT * CMP-COMPREHENSIVE METABOLIC PNL Performed by: [address] [address] Component Value Range Date BUN/CREATININE RATIO 16 6-34 021 08:51 pm EDT A/G RATIO 0.8 0.8-2.0 04/21/2021 08:5 1 pm EDT GLUCOSE 72 04/21/2021 08:5 1 pm EDT CREATININE 4.2 mg/dL 0.6-1.3 04/21/2021 08:5 1 pm EDT CALCIUM 8.0 mg/dL 8.4-10.2 04/21/2021 08:5 1 pm EDT BILIRUBIN, TOTAL 0.3 mg/dL 0.2-1.2 04/21/2021 08:51 pm EDT * Individual Tests: CMP-COMPREHENSIVE METABOLIC PNL / CREATINE KINASE (CPK) / CBC W/DIFF Performed by: [address] [id number] Component Value Range Date CREATINE KINASE (CPK) 18 IU/L 30-250 2020 08:51 pm EDT * CBC W/DIFF Performed by: [address] [address] Component Value Range Date MPV 8.9 fL 6.5-12.0 04/21/2021 08:5 1 pm EDT * 2019 NOVEL CORONAVIRUS, MIKAYLA Performed by: [id number] [facility] [address], [address] [place] [address] Component Value Range Date 2019 NOVEL CORONAVIRUS, MIKAYLA NOT DETECTED NOT DETECTED 04/20/2021 07:18 pm EDT 2019 NOVEL CORONAVIRUS, MIKAYLA See Attachment 04/20/2021 07:18 pm EDT * Individual Tests: [facility] Performed by: [address] [address] Component Value Range Date [facility]/[place], [place] * 04/17/2021 04:15 pm EDT * CBC W/DIFF Performed by: [address] [address] Component Value Range Date ANISOCYTOSIS 1+ NEGATIVE 04/14/2021 10:3 5 pm EDT * Individual Tests: CMP-COMPREHENSIVE METABOLIC PNL / CREATINE KINASE (CPK) / CBC W/DIFF Performed by: [address] [address] Component Value Range Date CREATINE KINASE (CPK) 17 IU/L 30-250 2020 10:35 pm EDT * CMP-COMPREHENSIVE METABOLIC PNL Performed by: [address] [address] Component Value Range Date CALCIUM 7.9 mg/dL 8.4-10.2 04/14/2021 10:3 5 pm EDT BILIRUBIN, TOTAL 0.3 mg/dL 0.2-1.2 04/14/2021 10:35 pm EDT CREATININE 4.8 mg/dL 0.6-1.3 04/14/2021 10:3 5 pm EDT GLUCOSE 115 04/14/2021 10:3 5 pm EDT * CBC W/DIFF Performed by: [address] [address] Component Value Range Date MPV 8.4 fL 6.5-12.0 04/14/2021 10:3 5 pm EDT * CMP-COMPREHENSIVE METABOLIC PNL Performed by: [address] [address] Component Value Range Date A/G RATIO 0.7 0.8-2.0 04/14/2021 10:3 5 pm EDT BUN/CREATININE RATIO 8 6-34 10:35 pm EDT * CBC W/DIFF Performed by: [address] [address] Component Value Range Date NEUTS (ABSOLUTE) 7.20 K/uL 1.50-7.60 04/14/2021 10:35 pm EDT EOS 2.0 % 0.0-8.0 04/14/2021 10:3 5 pm EDT MONOCYTES (ABSOLUTE) 0.90 K/uL 0.15-1.10 021 10:35 pm EDT EOS (ABSOLUTE) 0.20 K/uL 0.20-0.80 04/14/2021 10 :35 pm EDT HEMOGLOBIN 7.4 g/dL 14.0-18.0 04/14/2021 10:3 5 pm EDT * CMP-COMPREHENSIVE METABOLIC PNL Performed by: [address] [address] Component Value Range Date POTASSIUM 5.0 mEq/L 3.5-5.3 04/14/2021 10:3 5 pm EDT SODIUM 143 mEq/L 136-145 04/14/2021 10:3 5 pm EDT BUN (UREA NITROGEN) 38 mg/dL 7-25 04/14/20 21 10:35 pm EDT CARBON DIOXIDE (CO2) 29 mEq/L 21-33 021 10:35 pm EDT CHLORIDE 102 mEq/L 98-110 04/14/2021 10:3 5 pm EDT * CBC W/DIFF Performed by: [address] [address] Component Value Range Date MCHC 32.3 g/dL 31.0-36.5 04/14/2021 10:3 5 pm EDT RBC 2.43 M/cmm 4.00-6.60 04/14/2021 10:3 5 pm EDT MCH 30.4 pg 26.0-35.0 04/14/2021 10:3 5 pm EDT PLATELET 290 K/cmm 150-450 04/14/2021 10:3 5 pm EDT * CMP-COMPREHENSIVE METABOLIC PNL Performed by: [place] [id number] Component Value Range Date ALT (SGPT) 5 IU/L 4-55 04/14/2021 10:3 5 pm EDT * CBC W/DIFF Performed by: [place] [id number] Component Value Range Date WBC 8.9 K/cmm 4.5-10.8 04/14/2021 10:3 5 pm EDT HEMATOCRIT 22.9 % 42.0-54.0 04/14/2021 10:3 5 pm EDT * CMP-COMPREHENSIVE METABOLIC PNL Performed by: [place] [id number] Component Value Range Date PROTEIN, TOTAL 6.3 g/dL 6.0-8.3 04/14/2021 10 :35 pm EDT ALKALINE PHOS 53 IU/L 34-136 04/14/2021 10: 35 pm EDT ALBUMIN 2.6 g/dL 3.5-5.5 04/14/2021 10:3 5 pm EDT AST (SGOT) 8 IU/L 4-40 04/14/2021 10:3 5 pm EDT * CBC W/DIFF Performed by: [address] [address] Component Value Range Date RDW 17.3 % 11.0-16.0 04/14/2021 10:3 5 pm EDT NEUTROPHILS 80.8 % 40.0-80.0 04/14/2021 10:3 5 pm EDT * CMP-COMPREHENSIVE METABOLIC PNL Performed by: [address] [address] Component Value Range Date HLY-JML-[id number] 13 mL/min/1.73 m2 >60 04/14/2021 10:35 pm EDT * CBC W/DIFF Performed by: [address] [address] Component Value Range Date BASO (ABSOLUTE) 0.10 K/uL 0.00-0.30 04/14/2021 1 0:35 pm EDT * CMP-COMPREHENSIVE METABOLIC PNL Performed by: [address] [address] Component Value Range Date GFR- 15 mL/min/1.73 m2 >60 10:35 pm EDT * CBC W/DIFF Performed by: [place] [id number] Component Value Range Date MCV 94.1 fL 80.0-100.0 04/14/2021 10:3 5 pm EDT LYMPHS 6.0 % 13.0-48.0 04/14/2021 10:3 5 pm EDT BASO 0.6 % 0.0-2.0 04/14/2021 10:3 5 pm EDT LYMPHS (ABSOLUTE) 0.50 K/uL 0.90-5.50 04/14/2021 10:35 pm EDT MONOCYTES 10.6 % 2.0-12.0 04/14/2021 10:3 5 pm EDT * 2019 NOVEL CORONAVIRUS, MIKAYLA Performed by: [id number] [facility] [address], [address] [facility] [address] Component Value Range Date 2019 NOVEL CORONAVIRUS, MIKAYLA NOT DETECTED NOT DETECTED 04/14/2021 01:14 pm EDT 2019 NOVEL CORONAVIRUS, MIKAYLA See Attachment 04/14/2021 01:14 pm EDT * Individual Tests: URINALYSIS / CULTURE, URINE Performed by: [place], [place] [id number] [place] [id number] Component Value Range Date CULTURE, URINE . 04/13/2021 09 :46 am EDT * URINALYSIS Performed by: [address] [address] Component Value Range Date NITRITE,UR NEGATIVE NEGATIVE 04/13/2021 09:4 6 am EDT COLOR YELLOW YELLOW 04/13/2021 09:4 6 am EDT PROTEIN,UR 3+ NEGATIVE 04/13/2021 09:4 6 am EDT RBC,UR >50 /HPF <6 04/13/2021 09:4 6 am EDT GLUCOSE,UR NEGATIVE NEGATIVE 04/13/2021 09:4 6 am EDT SPECIFIC GRAVITY 1.015 1.001-1.030 04/13/2021 09:46 am EDT UROBILINOGEN,UR NEGATIVE NEGATIVE 04/13/2021 0 9:46 am EDT LEUKOCYTES,UR 3+ NEGATIVE 04/13/2021 09: 46 am EDT BLOOD,UR 2+ NEGATIVE 04/13/2021 09:4 6 am EDT WBC,UR >50 /HPF <6 04/13/2021 09:4 6 am EDT EPITHELIAL CELL NEGATIVE NEGATIVE 04/13/2021 0 9:46 am EDT BACTERIA,UR FEW NEGATIVE 04/13/2021 09:4 6 am EDT WBC CLUMPS PRESENT ABSENT 04/13/2021 09:4 6 am EDT PH, URINE 7.0 5.0-8.5 04/13/2021 09:4 6 am EDT BILIRUBIN,UR NEGATIVE NEGATIVE 04/13/2021 09:4 6 am EDT CLARITY TURBID CLEAR 04/13/2021 09:4 6 am EDT HYALINE CASTS NEGATIVE NEGATIVE 04/13/2021 09: 46 am EDT KETONES,UR NEGATIVE NEGATIVE 04/13/2021 09:4 6 am EDT * CBC W/DIFF Performed by: [address] [address] Component Value Range Date MONOCYTES 10.1 % 2.0-12.0 04/12/2021 09:3 5 pm EDT BASO 0.9 % 0.0-2.0 04/12/2021 09:3 5 pm EDT LYMPHS 5.6 % 13.0-48.0 04/12/2021 09:3 5 pm EDT MCV 92.7 fL 80.0-100.0 04/12/2021 09:3 5 pm EDT LYMPHS (ABSOLUTE) 0.50 K/uL 0.90-5.50 04/12/2021 09:35 pm EDT * CMP-COMPREHENSIVE METABOLIC PNL Performed by: [address] [address] Component Value Range Date GFR- 16 mL/min/1.73 m2 >60 09:35 pm EDT [id number]-WPO-UKPURPS 13 mL/min/1.73 m2 >60 04/12/2021 09:35 pm EDT * CBC W/DIFF Performed by: [address] [address] Component Value Range Date BASO (ABSOLUTE) 0.10 K/uL 0.00-0.30 04/12/2021 0 9:35 pm EDT NEUTROPHILS 81.4 % 40.0-80.0 04/12/2021 09:3 5 pm EDT RDW 17.6 % 11.0-16.0 04/12/2021 09:3 5 pm EDT * CMP-COMPREHENSIVE METABOLIC PNL Performed by: [address] [address] Component Value Range Date AST (SGOT) 9 IU/L 4-40 04/12/2021 09:3 5 pm EDT ALBUMIN 2.6 g/dL 3.5-5.5 04/12/2021 09:3 5 pm EDT ALKALINE PHOS 42 IU/L 34-136 04/12/2021 09: 35 pm EDT PROTEIN, TOTAL 6.3 g/dL 6.0-8.3 04/12/2021 09 :35 pm EDT * CBC W/DIFF Performed by: [address] [id number] Component Value Range Date WBC 8.2 K/cmm 4.5-10.8 04/12/2021 09:3 5 pm EDT * CMP-COMPREHENSIVE METABOLIC PNL Performed by: [place] [id number] Component Value Range Date ALT (SGPT) 5 IU/L 4-55 04/12/2021 09:3 5 pm EDT * CBC W/DIFF Performed by: [place] [id number] Component Value Range Date PLATELET 271 K/cmm 150-450 04/12/2021 09:3 5 pm EDT MCH 30.2 pg 26.0-35.0 04/12/2021 09:3 5 pm EDT HEMATOCRIT 21.9 % 42.0-54.0 04/12/2021 09:3 5 pm EDT RBC 2.36 M/cmm 4.00-6.60 04/12/2021 09:3 5 pm EDT MCHC 32.5 g/dL 31.0-36.5 04/12/2021 09:3 5 pm EDT * CMP-COMPREHENSIVE METABOLIC PNL Performed by: [address] [id number] Component Value Range Date CHLORIDE 100 mEq/L 98-110 04/12/2021 09:3 5 pm EDT CARBON DIOXIDE (CO2) 27 mEq/L 21-33 021 09:35 pm EDT BUN (UREA NITROGEN) 31 mg/dL 7-25 04/12/20 21 09:35 pm EDT SODIUM 140 mEq/L 136-145 04/12/2021 09:3 5 pm EDT POTASSIUM 4.9 mEq/L 3.5-5.3 04/12/2021 09:3 5 pm EDT * CBC W/DIFF Performed by: [address] [id number] Component Value Range Date HEMOGLOBIN 7.1 g/dL 14.0-18.0 04/12/2021 09:3 5 pm EDT MPV 8.6 fL 6.5-12.0 04/12/2021 09:3 5 pm EDT * CMP-COMPREHENSIVE METABOLIC PNL Performed by: [address] [id number] Component Value Range Date GLUCOSE 102 04/12/2021 09:3 5 pm EDT CREATININE 4.6 mg/dL 0.6-1.3 04/12/2021 09:3 5 pm EDT BILIRUBIN, TOTAL 0.3 mg/dL 0.2-1.2 04/12/2021 09:35 pm EDT CALCIUM 7.8 mg/dL 8.4-10.2 04/12/2021 09:3 5 pm EDT BUN/CREATININE RATIO 7 6-34 021 09:35 pm EDT * CBC W/DIFF Performed by: [place] [id number] Component Value Range Date MONOCYTES (ABSOLUTE) 0.80 K/uL 0.15-1.10 021 09:35 pm EDT * CMP-COMPREHENSIVE METABOLIC PNL Performed by: [address] [id number] Component Value Range Date A/G RATIO 0.7 0.8-2.0 04/12/2021 09:3 5 pm EDT * CBC W/DIFF Performed by: [address] [id number] Component Value Range Date EOS (ABSOLUTE) 0.20 K/uL 0.20-0.80 04/12/2021 09 :35 pm EDT EOS 2.0 % 0.0-8.0 04/12/2021 09:3 5 pm EDT NEUTS (ABSOLUTE) 6.70 K/uL 1.50-7.60 04/12/2021 09:35 pm EDT ANISOCYTOSIS 1+ NEGATIVE 04/12/2021 09:3 5 pm EDT * CBC W/DIFF Performed by: [address] [id number] Component Value Range Date ANISOCYTOSIS 1+ NEGATIVE 04/07/2021 09:5 3 pm EDT NEUTS (ABSOLUTE) 9.60 K/uL 1.50-7.60 04/07/2021 09:53 pm EDT EOS 1.1 % 0.0-8.0 04/07/2021 09:5 3 pm EDT EOS (ABSOLUTE) 0.10 K/uL 0.20-0.80 04/07/2021 09 :53 pm EDT * CMP-COMPREHENSIVE METABOLIC PNL Performed by: [address] [id number] Component Value Range Date A/G RATIO 0.8 0.8-2.0 04/07/2021 09:5 3 pm EDT * Individual Tests: CMP-COMPREHENSIVE METABOLIC PNL / CREATINE KINASE (CPK) / CBC W/DIFF Performed by: [address] [id number] Component Value Range Date CREATINE KINASE (CPK) 25 IU/L 30-250 2020 09:53 pm EDT * CBC W/DIFF Performed by: [address] [id number] Component Value Range Date MONOCYTES (ABSOLUTE) 1.00 K/uL 0.15-1.10 021 09:53 pm EDT * CMP-COMPREHENSIVE METABOLIC PNL Performed by: [address] [id number] Component Value Range Date BUN/CREATININE RATIO 7 6-34 021 09:53 pm EDT BILIRUBIN, TOTAL 0.5 mg/dL 0.2-1.2 04/07/2021 09:53 pm EDT CALCIUM 8.4 mg/dL 8.4-10.2 04/07/2021 09:5 3 pm EDT GLUCOSE 99 04/07/2021 09:5 3 pm EDT CREATININE 4.6 mg/dL 0.6-1.3 04/07/2021 09:5 3 pm EDT * CBC W/DIFF Performed by: [address] [id number] Component Value Range Date NUCLEATED RBC 0.1 NRBC/100 WBC <1.0 04/07/2021 09:53 pm EDT MPV 7.9 fL 6.5-12.0 04/07/2021 09:5 3 pm EDT HEMOGLOBIN 7.9 g/dL 14.0-18.0 04/07/2021 09:5 3 pm EDT * CMP-COMPREHENSIVE METABOLIC PNL Performed by: [place] [id number] Component Value Range Date SODIUM 139 mEq/L 136-145 04/07/2021 09:5 3 pm EDT POTASSIUM 5.2 mEq/L 3.5-5.3 04/07/2021 09:5 3 pm EDT BUN (UREA NITROGEN) 32 mg/dL 7-25 04/07/20 21 09:53 pm EDT CARBON DIOXIDE (CO2) 26 mEq/L 21-33 021 09:53 pm EDT CHLORIDE 98 mEq/L 98-110 04/07/2021 09:5 3 pm EDT * CBC W/DIFF Performed by: [address] [id number] Component Value Range Date MCHC 31.8 g/dL 31.0-36.5 04/07/2021 09:5 3 pm EDT RBC 2.69 M/cmm 4.00-6.60 04/07/2021 09:5 3 pm EDT MCH 29.5 pg 26.0-35.0 04/07/2021 09:5 3 pm EDT * CMP-COMPREHENSIVE METABOLIC PNL Performed by: [place] [id number] Component Value Range Date ALT (SGPT) 6 IU/L 4-55 04/07/2021 09:5 3 pm EDT * CBC W/DIFF Performed by: [place] [id number] Component Value Range Date PLATELET 364 K/cmm 150-450 04/07/2021 09:5 3 pm EDT HEMATOCRIT 25.0 % 42.0-54.0 04/07/2021 09:5 3 pm EDT WBC 11.4 K/cmm 4.5-10.8 04/07/2021 09:5 3 pm EDT * CMP-COMPREHENSIVE METABOLIC PNL Performed by: [address] [id number] Component Value Range Date PROTEIN, TOTAL 7.1 g/dL 6.0-8.3 04/07/2021 09 :53 pm EDT ALKALINE PHOS 51 IU/L 34-136 04/07/2021 09: 53 pm EDT ALBUMIN 3.1 g/dL 3.5-5.5 04/07/2021 09:5 3 pm EDT AST (SGOT) 12 IU/L 4-40 04/07/2021 09:5 3 pm EDT * CBC W/DIFF Performed by: [address] [id number] Component Value Range Date RDW 16.8 % 11.0-16.0 04/07/2021 09:5 3 pm EDT NEUTROPHILS 84.3 % 40.0-80.0 04/07/2021 09:5 3 pm EDT BASO (ABSOLUTE) 0.10 K/uL 0.00-0.30 04/07/2021 0 9:53 pm EDT * CMP-COMPREHENSIVE METABOLIC PNL Performed by: [address] [id number] Component Value Range Date [id number] 13 mL/min/1.73 m2 >60 04/07/2021 09:53 pm EDT GFR- 16 mL/min/1.73 m2 >60 09:53 pm EDT * CBC W/DIFF Performed by: [address] [id number] Component Value Range Date MCV 92.9 fL 80.0-100.0 04/07/2021 09:5 3 pm EDT LYMPHS 5.6 % 13.0-48.0 04/07/2021 09:5 3 pm EDT BASO 0.6 % 0.0-2.0 04/07/2021 09:5 3 pm EDT MONOCYTES 8.4 % 2.0-12.0 04/07/2021 09:5 3 pm EDT LYMPHS (ABSOLUTE) 0.60 K/uL 0.90-5.50 04/07/2021 09:53 pm EDT * TIQ-WRONG SPECIMEN TYPE Performed by: [address] [address] Component Value Range Date TEST NAME LACTIC ACID 04/07/2021 03:5 5 pm EDT PROBLEM: INCORRECT SPECIMEN 03:55 pm EDT RESOLUTION: . 04/07/2021 03:5 5 pm EDT LAB WILL REDRAW (DATE): WILL CALL 01/2021 03:55 pm EDT * 2019 NOVEL CORONAVIRUS, MIKAYLA Performed by: [id number] [facility] [address], [address] [place] [address] Component Value Range Date 2018 NOVEL CORONAVIRUS, MIKAYLA NOT DETECTED NOT DETECTED 04/05/2021 10:00 pm EDT 2019 NOVEL CORONAVIRUS, MIKAYLA See Attachment 04/05/2021 10:00 pm EDT * CBC W/DIFF Performed by: [address] [id number] Component Value Range Date ANISOCYTOSIS 1+ NEGATIVE 03/31/2021 09:3 0 pm EDT MPV 8.3 fL 6.5-12.0 03/31/2021 09:3 0 pm EDT * Individual Tests: CMP-COMPREHENSIVE METABOLIC PNL / CREATINE KINASE (CPK) / CBC W/DIFF / SED RATE (ESR) Performed by: [address] [address] Component Value Range Date SED RATE (ESR) 124 mm/hr 0-15 03/31/2021 09 :30 pm EDT * CMP-COMPREHENSIVE METABOLIC PNL Performed by: [address] [address] Component Value Range Date CREATININE 4.9 mg/dL 0.6-1.3 03/31/2021 09:3 0 pm EDT CALCIUM 8.0 mg/dL 8.4-10.2 03/31/2021 09:3 0 pm EDT BILIRUBIN, TOTAL 0.4 mg/dL 0.2-1.2 03/31/2021 09:30 pm EDT GLUCOSE 112 03/31/2021 09:3 0 pm EDT BUN/CREATININE RATIO 8 6-34 021 09:30 pm EDT * CBC W/DIFF Performed by: [address] [address] Component Value Range Date MONOCYTES (ABSOLUTE) 1.00 K/uL 0.15-1.10 021 09:30 pm EDT * Individual Tests: CMP-COMPREHENSIVE METABOLIC PNL / CREATINE KINASE (CPK) / CBC W/DIFF / SED RATE (ESR) Performed by: [address] [id number] Component Value Range Date CREATINE KINASE (CPK) 21 IU/L 30-250 2020 09:30 pm EDT * CMP-COMPREHENSIVE METABOLIC PNL Performed by: [place] [id number] Component Value Range Date A/G RATIO 0.8 0.8-2.0 03/31/2021 09:3 0 pm EDT * CBC W/DIFF Performed by: [place] [id number] Component Value Range Date EOS (ABSOLUTE) 0.10 K/uL 0.20-0.80 03/31/2021 09 :30 pm EDT EOS 1.6 % 0.0-8.0 03/31/2021 09:3 0 pm EDT NEUTS (ABSOLUTE) 5.10 K/uL 1.50-7.60 03/31/2021 09:30 pm EDT MONOCYTES 14.7 % 2.0-12.0 03/31/2021 09:3 0 pm EDT BASO 0.9 % 0.0-2.0 03/31/2021 09:3 0 pm EDT LYMPHS 8.3 % 13.0-48.0 03/31/2021 09:3 0 pm EDT MCV 92.5 fL 80.0-100.0 03/31/2021 09:3 0 pm EDT LYMPHS (ABSOLUTE) 0.60 K/uL 0.90-5.50 03/31/2021 09:30 pm EDT * CMP-COMPREHENSIVE METABOLIC PNL Performed by: [address] [address] Component Value Range Date GFR- 15 mL/min/1.73 m2 >60 09:30 pm EDT [id number] 12 mL/min/1.73 m2 >60 03/31/2021 09:30 pm EDT * CBC W/DIFF Performed by: [address] [address] Component Value Range Date BASO (ABSOLUTE) 0.10 K/uL 0.00-0.30 03/31/2021 0 9:30 pm EDT NEUTROPHILS 74.5 % 40.0-80.0 03/31/2021 09:3 0 pm EDT RDW 17.4 % 11.0-16.0 03/31/2021 09:3 0 pm EDT * CMP-COMPREHENSIVE METABOLIC PNL Performed by: [place] [id number] Component Value Range Date AST (SGOT) 11 IU/L 4-40 03/31/2021 09:3 0 pm EDT ALBUMIN 2.8 g/dL 3.5-5.5 03/31/2021 09:3 0 pm EDT ALKALINE PHOS 46 IU/L 34-136 03/31/2021 09: 30 pm EDT PROTEIN, TOTAL 6.3 g/dL 6.0-8.3 03/31/2021 09 :30 pm EDT ALT (SGPT) 5 IU/L 4-55 03/31/2021 09:3 0 pm EDT * CBC W/DIFF Performed by: [place] [id number] Component Value Range Date PLATELET 303 K/cmm 150-450 03/31/2021 09:3 0 pm EDT WBC 6.9 K/cmm 4.5-10.8 03/31/2021 09:3 0 pm EDT HEMATOCRIT 23.5 % 42.0-54.0 03/31/2021 09:3 0 pm EDT MCH 29.8 pg 26.0-35.0 03/31/2021 09:3 0 pm EDT RBC 2.54 M/cmm 4.00-6.60 03/31/2021 09:3 0 pm EDT MCHC 32.2 g/dL 31.0-36.5 03/31/2021 09:3 0 pm EDT * CMP-COMPREHENSIVE METABOLIC PNL Performed by: [place] [id number] Component Value Range Date CARBON DIOXIDE (CO2) 26 mEq/L 21-33 021 09:30 pm EDT CHLORIDE 102 mEq/L 98-110 03/31/2021 09:3 0 pm EDT BUN (UREA NITROGEN) 39 mg/dL 7-25 03/31/20 21 09:30 pm EDT SODIUM 143 mEq/L 136-145 03/31/2021 09:3 0 pm EDT POTASSIUM 4.5 mEq/L 3.5-5.3 03/31/2021 09:3 0 pm EDT * CBC W/DIFF Performed by: [address] [id number] Component Value Range Date HEMOGLOBIN 7.6 g/dL 14.0-18.0 03/31/2021 09:3 0 pm EDT * 2019 NOVEL CORONAVIRUS, MIKAYLA Performed by: [id number] [facility] [address], [address] [facility] [address] Component Value Range Date 2019 NOVEL CORONAVIRUS, MIKAYLA NOT DETECTED NOT DETECTED 03/29/2021 11:33 pm EDT 2019 NOVEL CORONAVIRUS, MIKAYLA See Attachment 03/29/2021 11:33 pm EDT * CBC W/DIFF Performed by: [address] [id number] Component Value Range Date ANISOCYTOSIS 1+ NEGATIVE 03/27/2021 06:1 2 pm EDT EOS 2.3 % 0.0-8.0 03/27/2021 06:1 2 pm EDT EOS (ABSOLUTE) 0.20 K/uL 0.20-0.80 03/27/2021 06 :12 pm EDT NEUTS (ABSOLUTE) 6.30 K/uL 1.50-7.60 03/27/2021 06:12 pm EDT * CMP-COMPREHENSIVE METABOLIC PNL Performed by: [address] [address] Component Value Range Date A/G RATIO 0.8 0.8-2.0 03/27/2021 06:1 2 pm EDT * Individual Tests: CMP-COMPREHENSIVE METABOLIC PNL / CREATINE KINASE (CPK) / CBC W/DIFF Performed by: [address] [id number] Component Value Range Date CREATINE KINASE (CPK) 22 IU/L 30-250 2020 06:12 pm EDT * CBC W/DIFF Performed by: [address] [address] Component Value Range Date MONOCYTES (ABSOLUTE) 1.00 K/uL 0.15-1.10 06:12 pm EDT * CMP-COMPREHENSIVE METABOLIC PNL Performed by: [address] [address] Component Value Range Date BUN/CREATININE RATIO 9 6-34 06:12 pm EDT CALCIUM 8.3 mg/dL 8.4-10.2 03/27/2021 06:1 2 pm EDT BILIRUBIN, TOTAL 0.3 mg/dL 0.2-1.2 03/27/2021 06:12 pm EDT CREATININE 6.0 mg/dL 0.6-1.3 03/27/2021 06:1 2 pm EDT * CBC W/DIFF Performed by: [address] [address] Component Value Range Date NUCLEATED RBC 0.1 NRBC/100 WBC <1.0 03/27/2021 06:12 pm EDT * CMP-COMPREHENSIVE METABOLIC PNL Performed by: [address] [address] Component Value Range Date GLUCOSE 152 03/27/2021 06:1 2 pm EDT * CBC W/DIFF Performed by: [address] [address] Component Value Range Date MPV 8.6 fL 6.5-12.0 03/27/2021 06:1 2 pm EDT HEMOGLOBIN 8.2 g/dL 14.0-18.0 03/27/2021 06:1 2 pm EDT * CMP-COMPREHENSIVE METABOLIC PNL Performed by: [address] [address] Component Value Range Date POTASSIUM 4.6 mEq/L 3.5-5.3 03/27/2021 06:1 2 pm EDT SODIUM 140 mEq/L 136-145 03/27/2021 06:1 2 pm EDT BUN (UREA NITROGEN) 55 mg/dL 7-25 03/27/20 06:12 pm EDT CARBON DIOXIDE (CO2) 26 mEq/L 21-33 06:12 pm EDT CHLORIDE 101 mEq/L 98-110 03/27/2021 06:1 2 pm EDT * CBC W/DIFF Performed by: [place] [id number] Component Value Range Date MCHC 32.4 g/dL 31.0-36.5 03/27/2021 06:1 2 pm EDT RBC 2.72 M/cmm 4.00-6.60 03/27/2021 06:1 2 pm EDT MCH 30.1 pg 26.0-35.0 03/27/2021 06:1 2 pm EDT HEMATOCRIT 25.3 % 42.0-54.0 03/27/2021 06:1 2 pm EDT WBC 8.1 K/cmm 4.5-10.8 03/27/2021 06:1 2 pm EDT PLATELET 310 K/cmm 150-450 03/27/2021 06:1 2 pm EDT * CMP-COMPREHENSIVE METABOLIC PNL Performed by: [place] [id number] Component Value Range Date ALT (SGPT) 5 IU/L 4-55 03/27/2021 06:1 2 pm EDT PROTEIN, TOTAL 6.4 g/dL 6.0-8.3 03/27/2021 06 :12 pm EDT ALKALINE PHOS 53 IU/L 34-136 03/27/2021 06: 12 pm EDT ALBUMIN 2.8 g/dL 3.5-5.5 03/27/2021 06:1 2 pm EDT AST (SGOT) 10 IU/L 4-40 03/27/2021 06:1 2 pm EDT * CBC W/DIFF Performed by: [address] [address] Component Value Range Date RDW 17.8 % 11.0-16.0 03/27/2021 06:1 2 pm EDT NEUTROPHILS 78.3 % 40.0-80.0 03/27/2021 06:1 2 pm EDT BASO (ABSOLUTE) 0.10 K/uL 0.00-0.30 03/27/2021 0 6:12 pm EDT * CMP-COMPREHENSIVE METABOLIC PNL Performed by: [place] [id number] Component Value Range Date [id number]-[id number]-[id number] 10 mL/min/1.73 m2 >60 03/27/2021 06:12 pm EDT GFR- 12 mL/min/1.73 m2 >60 06:12 pm EDT * CBC W/DIFF Performed by: [address] [address] Component Value Range Date LYMPHS (ABSOLUTE) 0.50 K/uL 0.90-5.50 03/27/2021 06:12 pm EDT MCV 93.0 fL 80.0-100.0 03/27/2021 06:1 2 pm EDT LYMPHS 6.7 % 13.0-48.0 03/27/2021 06:1 2 pm EDT BASO 0.9 % 0.0-2.0 03/27/2021 06:1 2 pm EDT MONOCYTES 11.8 % 2.0-12.0 03/27/2021 06:1 2 pm EDT * 2019 NOVEL CORONAVIRUS, MIKAYLA Performed by: [id number] [facility] [address], [address] [place] [address] Component Value Range Date 2019 NOVEL CORONAVIRUS, MIKAYLA NOT DETECTED NOT DETECTED 03/22/2021 08:23 pm EDT 2019 NOVEL CORONAVIRUS, MIKAYLA See Attachment 03/22/2021 08:23 pm EDT * CBC W/DIFF Performed by: [address] [address] Component Value Range Date ANISOCYTOSIS 1+ NEGATIVE 03/20/2021 08:5 5 pm EDT MPV 8.6 fL 6.5-12.0 03/20/2021 08:5 5 pm EDT * CMP-COMPREHENSIVE METABOLIC PNL Performed by: [address] [id number] Component Value Range Date GLUCOSE 137 03/20/2021 08:5 5 pm EDT CREATININE 6.3 mg/dL 0.6-1.3 03/20/2021 08:5 5 pm EDT BILIRUBIN, TOTAL 0.3 mg/dL 0.2-1.2 03/20/2021 08:55 pm EDT CALCIUM 8.3 mg/dL 8.4-10.2 03/20/2021 08:5 5 pm EDT BUN/CREATININE RATIO 9 6-34 07/19/2 021 08:55 pm EDT * CBC W/DIFF Performed by: [place] [id number] Component Value Range Date MONOCYTES (ABSOLUTE) 1.10 K/uL 0.15-1.10 08:55 pm EDT * Individual Tests: CMP-COMPREHENSIVE METABOLIC PNL / CREATINE KINASE (CPK) / CBC W/DIFF Performed by: [place] [id number] Component Value Range Date CREATINE KINASE (CPK) 22 IU/L 30-250 2020 08:55 pm EDT * CMP-COMPREHENSIVE METABOLIC PNL Performed by: [place] [id number] Component Value Range Date A/G RATIO 0.9 0.8-2.0 03/20/2021 08:5 5 pm EDT * CBC W/DIFF Performed by: [place] [id number] Component Value Range Date NEUTS (ABSOLUTE) 7.20 K/uL 1.50-7.60 03/20/2021 08:55 pm EDT EOS (ABSOLUTE) 0.40 K/uL 0.20-0.80 03/20/2021 08 :55 pm EDT BASO 0.6 % 0.0-2.0 03/20/2021 08:5 5 pm EDT EOS 4.0 % 0.0-8.0 03/20/2021 08:5 5 pm EDT MONOCYTES 12.1 % 2.0-12.0 03/20/2021 08:5 5 pm EDT LYMPHS 7.5 % 13.0-48.0 03/20/2021 08:5 5 pm EDT MCV 93.1 fL 80.0-100.0 03/20/2021 08:5 5 pm EDT LYMPHS (ABSOLUTE) 0.70 K/uL 0.90-5.50 03/20/2021 08:55 pm EDT * CMP-COMPREHENSIVE METABOLIC PNL Performed by: [place] [id number] Component Value Range Date GFR- 11 mL/min/1.73 m2 >60 08:55 pm EDT [id number] 9 mL/min/1.73 m2 >60 03/20/2021 08:55 pm EDT * CBC W/DIFF Performed by: [address] [address] Component Value Range Date NEUTROPHILS 75.8 % 40.0-80.0 03/20/2021 08:5 5 pm EDT BASO (ABSOLUTE) 0.10 K/uL 0.00-0.30 03/20/2021 0 8:55 pm EDT RDW 18.0 % 11.0-16.0 03/20/2021 08:5 5 pm EDT * CMP-COMPREHENSIVE METABOLIC PNL Performed by: [address] [address] Component Value Range Date AST (SGOT) 7 IU/L 4-40 03/20/2021 08:5 5 pm EDT * CBC W/DIFF Performed by: [place] [id number] Component Value Range Date PLATELET 316 K/cmm 150-450 03/20/2021 08:5 5 pm EDT * CMP-COMPREHENSIVE METABOLIC PNL Performed by: [place] [id number] Component Value Range Date ALBUMIN 2.9 g/dL 3.5-5.5 03/20/2021 08:5 5 pm EDT ALKALINE PHOS 69 IU/L 34-136 03/20/2021 08: 55 pm EDT PROTEIN, TOTAL 6.3 g/dL 6.0-8.3 03/20/2021 08 :55 pm EDT ALT (SGPT) 3 IU/L 4-55 03/20/2021 08:5 5 pm EDT * CBC W/DIFF Performed by: [address] [address] Component Value Range Date WBC 9.5 K/cmm 4.5-10.8 03/20/2021 08:5 5 pm EDT HEMATOCRIT 25.7 % 42.0-54.0 03/20/2021 08:5 5 pm EDT MCH 30.5 pg 26.0-35.0 03/20/2021 08:5 5 pm EDT RBC 2.76 M/cmm 4.00-6.60 03/20/2021 08:5 5 pm EDT MCHC 32.7 g/dL 31.0-36.5 03/20/2021 08:5 5 pm EDT * CMP-COMPREHENSIVE METABOLIC PNL Performed by: [address] [address] Component Value Range Date CHLORIDE 102 mEq/L 98-110 03/20/2021 08:5 5 pm EDT CARBON DIOXIDE (CO2) 26 mEq/L 21-33 021 08:55 pm EDT SODIUM 143 mEq/L 136-145 03/20/2021 08:5 5 pm EDT BUN (UREA NITROGEN) 55 mg/dL 03-2603/20/20 08:55 pm EDT POTASSIUM 5.1 mEq/L 3.5-5.3 03/20/2021 08:5 5 pm EDT * CBC W/DIFF Performed by: [address] [address] Component Value Range Date HEMOGLOBIN 8.4 g/dL 14.0-18.0 03/20/2021 08:5 5 pm EDT * 2019 NOVEL CORONAVIRUS, MIKAYLA Performed by: [id number] [facility] [address] [address], [address] [address] Component Value Range Date 2018 NOVEL CORONAVIRUS, MIKAYLA INVALID NOT DETECTED 03/18/2021 10:21 pm EDT 2019 NOVEL CORONAVIRUS, MIKAYLA See Attachment 03/18/2021 10:21 pm EDT * TIQ-SPECIMEN NOT COLLECTED Performed by: [address] [address] Component Value Range Date TEST NAME SED RATE 03/16/2021 09:5 2 pm EDT PROBLEM: NO SPECIMEN 03/16/2021 09:5 2 pm EDT RESOLUTION: . 03/16/2021 09:5 2 pm EDT LAB WILL REDRAW (DATE): 03/13/2103/02 09:52 pm EDT * Individual Tests: C-REACTIVE PROTEIN / TIQ-SPECIMEN NOT COLLECTED Performed by: [address] [address] Component Value Range Date CRP 35.9 mg/L <10.0 03/16/2021 09:5 2 pm EDT * CBC W/DIFF Performed by: [place] [id number] Component Value Range Date HEMOGLOBIN 7.7 g/dL 14.0-18.0 03/13/2021 08:0 9 pm EDT * CMP-COMPREHENSIVE METABOLIC PNL Performed by: [place] [id number] Component Value Range Date POTASSIUM 5.4 mEq/L 3.5-5.3 03/13/2021 08:0 9 pm EDT SODIUM 140 mEq/L 136-145 03/13/2021 08:0 9 pm EDT BUN (UREA NITROGEN) 71 mg/dL 7-25 03/13/20 21 08:09 pm EDT CARBON DIOXIDE (CO2) 21 mEq/L 21-33 021 08:09 pm EDT CHLORIDE 102 mEq/L 98-110 03/13/2021 08:0 9 pm EDT * CBC W/DIFF Performed by: [place] [id number] Component Value Range Date RBC 2.56 M/cmm 4.00-6.60 03/13/2021 08:0 9 pm EDT MCH 30.0 pg 26.0-35.0 03/13/2021 08:0 9 pm EDT HEMATOCRIT 24.1 % 42.0-54.0 03/13/2021 08:0 9 pm EDT MCHC 31.9 g/dL 31.0-36.5 03/13/2021 08:0 9 pm EDT PLATELET 320 K/cmm 150-450 03/13/2021 08:0 9 pm EDT WBC 11.1 K/cmm 4.5-10.8 03/13/2021 08:0 9 pm EDT * CMP-COMPREHENSIVE METABOLIC PNL Performed by: [place] [id number] Component Value Range Date ALT (SGPT) 5 IU/L 4-55 03/13/2021 08:0 9 pm EDT PROTEIN, TOTAL 6.2 g/dL 6.0-8.3 03/13/2021 08 :09 pm EDT ALBUMIN 2.7 g/dL 3.5-5.5 03/13/2021 08:0 9 pm EDT AST (SGOT) 10 IU/L 4-40 03/13/2021 08:0 9 pm EDT ALKALINE PHOS 60 IU/L 34-136 03/13/2021 08: 09 pm EDT * CBC W/DIFF Performed by: [place] [id number] Component Value Range Date RDW 17.2 % 11.0-16.0 03/13/2021 08:0 9 pm EDT BASO (ABSOLUTE) 0.10 K/uL 0.00-0.30 03/13/2021 0 8:09 pm EDT NEUTROPHILS 78.7 % 40.0-80.0 03/13/2021 08:0 9 pm EDT * CMP-COMPREHENSIVE METABOLIC PNL Performed by: [place] [id number] Component Value Range Date GFR- 11 mL/min/1.73 m2 >60 08:09 pm EDT [id number] 9 mL/min/1.73 m2 >60 03/13/2021 08:09 pm EDT * CBC W/DIFF Performed by: [place] [id number] Component Value Range Date LYMPHS (ABSOLUTE) 0.60 K/uL 0.90-5.50 03/13/2021 08:09 pm EDT MCV 94.1 fL 80.0-100.0 03/13/2021 08:0 9 pm EDT BASO 0.6 % 0.0-2.0 03/13/2021 08:0 9 pm EDT MONOCYTES 11.5 % 2.0-12.0 03/13/2021 08:0 9 pm EDT LYMPHS 5.1 % 13.0-48.0 03/13/2021 08:0 9 pm EDT EOS 4.1 % 0.0-8.0 03/13/2021 08:0 9 pm EDT NEUTS (ABSOLUTE) 8.80 K/uL 1.50-7.60 03/13/2021 08:09 pm EDT EOS (ABSOLUTE) 0.50 K/uL 0.20-0.80 03/13/2021 08 :09 pm EDT * Individual Tests: CMP-COMPREHENSIVE METABOLIC PNL / CREATINE KINASE (CPK) / CBC W/DIFF Performed by: [address] [address] Component Value Range Date CREATINE KINASE (CPK) 24 IU/L 30-250 2020 08:09 pm EDT * CBC W/DIFF Performed by: [address] [address] Component Value Range Date MONOCYTES (ABSOLUTE) 1.30 K/uL 0.15-1.10 021 08:09 pm EDT * CMP-COMPREHENSIVE METABOLIC PNL Performed by: [address] [address] Component Value Range Date BUN/CREATININE RATIO 11 6-34 021 08:09 pm EDT BILIRUBIN, TOTAL 0.4 mg/dL 0.2-1.2 03/13/2021 08:09 pm EDT CALCIUM 8.0 mg/dL 8.4-10.2 03/13/2021 08:0 9 pm EDT GLUCOSE 93 03/13/2021 08:0 9 pm EDT * CBC W/DIFF Performed by: [address] [address] Component Value Range Date MPV 8.3 fL 6.5-12.0 03/13/2021 08:0 9 pm EDT * CMP-COMPREHENSIVE METABOLIC PNL Performed by: [address] [address] Component Value Range Date A/G RATIO 0.8 0.8-2.0 03/13/2021 08:0 9 pm EDT CREATININE 6.3 mg/dL 0.6-1.3 03/13/2021 08:0 9 pm EDT * CBC W/DIFF Performed by: [address] [address] Component Value Range Date ANISOCYTOSIS 1+ NEGATIVE 03/13/2021 08:0 9 pm EDT * CMP-COMPREHENSIVE METABOLIC PNL Performed by: MOSTLO AHA [place] [id number] Component Value Range Date BILIRUBIN, TOTAL 0.3 mg/dL 0.2-1.2 03/06/2021 03:20 pm EDT * CBC W/DIFF Performed by: [place] [id number] Component Value Range Date ANISOCYTOSIS 1+ NEGATIVE 03/06/2021 03:2 0 pm EDT * CMP-COMPREHENSIVE METABOLIC PNL Performed by: [place] [address] Component Value Range Date CREATININE 5.4 mg/dL 0.6-1.3 03/06/2021 03:2 0 pm EDT * CBC W/DIFF Performed by: [place] [id number] Component Value Range Date MPV 9.0 fL 6.5-12.0 03/06/2021 03:2 0 pm EDT * CMP-COMPREHENSIVE METABOLIC PNL Performed by: [place] [id number] Component Value Range Date A/G RATIO 0.7 0.8-2.0 03/06/2021 03:2 0 pm EDT GLUCOSE 186 03/06/2021 03:2 0 pm EDT CALCIUM 8.2 mg/dL 8.4-10.2 03/06/2021 03:2 0 pm EDT BUN/CREATININE RATIO 12 6-34 021 03:20 pm EDT * CBC W/DIFF Performed by: [place] [id number] Component Value Range Date MONOCYTES (ABSOLUTE) 1.40 K/uL 0.15-1.10 021 03:20 pm EDT * Individual Tests: CMP-COMPREHENSIVE METABOLIC PNL / CREATINE KINASE (CPK) / CBC W/DIFF Performed by: [place] [id number] Component Value Range Date CREATINE KINASE (CPK) 28 IU/L 30-250 2020 03:20 pm EDT * CBC W/DIFF Performed by: [place] [id number] Component Value Range Date NEUTS (ABSOLUTE) 10.50 K/uL 1.50-7.60 03/06/2021 03:20 pm EDT EOS (ABSOLUTE) 0.20 K/uL 0.20-0.80 03/06/2021 03 :20 pm EDT EOS 1.7 % 0.0-8.0 03/06/2021 03:2 0 pm EDT * CMP-COMPREHENSIVE METABOLIC PNL Performed by: [place] [id number] Component Value Range Date POTASSIUM 5.2 mEq/L 3.5-5.3 03/06/2021 03:2 0 pm EDT * CBC W/DIFF Performed by: [place] [id number] Component Value Range Date HEMOGLOBIN 7.9 g/dL 14.0-18.0 03/06/2021 03:2 0 pm EDT * CMP-COMPREHENSIVE METABOLIC PNL Performed by: [address] [address] Component Value Range Date CHLORIDE 99 mEq/L 98-110 03/06/2021 03:2 0 pm EDT CARBON DIOXIDE (CO2) 24 mEq/L 21-33 021 03:20 pm EDT BUN (UREA NITROGEN) 63 mg/dL 7-25 03/06/20 21 03:20 pm EDT SODIUM 136 mEq/L 136-145 03/06/2021 03:2 0 pm EDT * CBC W/DIFF Performed by: [address] [address] Component Value Range Date WBC 12.8 K/cmm 4.5-10.8 03/06/2021 03:2 0 pm EDT * CMP-COMPREHENSIVE METABOLIC PNL Performed by: [address] [address] Component Value Range Date ALT (SGPT) 4 IU/L 4-55 03/06/2021 03:2 0 pm EDT * CBC W/DIFF Performed by: [address] [address] Component Value Range Date HEMATOCRIT 25.2 % 42.0-54.0 03/06/2021 03:2 0 pm EDT PLATELET 369 K/cmm 150-450 03/06/2021 03:2 0 pm EDT MCH 29.4 pg 26.0-35.0 03/06/2021 03:2 0 pm EDT RBC 2.70 M/cmm 4.00-6.60 03/06/2021 03:2 0 pm EDT MCHC 31.5 g/dL 31.0-36.5 03/06/2021 03:2 0 pm EDT MONOCYTES 10.8 % 2.0-12.0 03/06/2021 03:2 0 pm EDT MCV 93.4 fL 80.0-100.0 03/06/2021 03:2 0 pm EDT LYMPHS 5.1 % 13.0-48.0 03/06/2021 03:2 0 pm EDT BASO 0.7 % 0.0-2.0 03/06/2021 03:2 0 pm EDT LYMPHS (ABSOLUTE) 0.70 K/uL 0.90-5.50 03/06/2021 03:20 pm EDT * CMP-COMPREHENSIVE METABOLIC PNL Performed by: [place] [id number] Component Value Range Date OWO-ZOF-ZFLNZAA 11 mL/min/1.73 m2 >60 03/06/2021 03:20 pm EDT GFR- 13 mL/min/1.73 m2 >60 03:20 pm EDT * CBC W/DIFF Performed by: [address] [id number] Component Value Range Date BASO (ABSOLUTE) 0.10 K/uL 0.00-0.30 03/06/2021 0 3:20 pm EDT NEUTROPHILS 81.7 % 40.0-80.0 03/06/2021 03:2 0 pm EDT RDW 17.2 % 11.0-16.0 03/06/2021 03:2 0 pm EDT * CMP-COMPREHENSIVE METABOLIC PNL Performed by: [address] [id number] Component Value Range Date ALKALINE PHOS 93 IU/L 34-136 03/06/2021 03: 20 pm EDT AST (SGOT) 8 IU/L 4-40 03/06/2021 03:2 0 pm EDT ALBUMIN 2.6 g/dL 3.5-5.5 03/06/2021 03:2 0 pm EDT PROTEIN, TOTAL 6.2 g/dL 6.0-8.3 03/06/2021 03 :20 pm EDT * Individual Tests: 2018 NOVEL CORONAVIRUS, MIKAYLA Performed by: [id number] [facility] [address], [place] [address] [facility] [address] Component Value Range Date 2018 NOVEL CORONAVIRUS, MIKAYLA NOT DETECTED NOT DETECTED 03/04/2021 07:54 pm EDT * Individual Tests: SED RATE (ESR) / C-REACTIVE PROTEIN Performed by: [place] [id number] Component Value Range Date SED RATE (ESR) 87 mm/hr 0-15 02/13/2021 11 :40 pm EDT CRP 37.7 mg/L <10.0 02/13/2021 11:4 0 pm EDT * CBC W/DIFF Performed by: [place] [id number] Component Value Range Date HEMOGLOBIN 9.9 g/dL 14.0-18.0 02/11/2021 05:3 6 pm EDT * BASIC MET PNL INCL GFR (BMP) Performed by: [place] [id number] Component Value Range Date POTASSIUM 5.1 mEq/L 3.5-5.3 02/11/2021 05:3 6 pm EDT SODIUM 143 mEq/L 136-145 02/11/2021 05:3 6 pm EDT BUN (UREA NITROGEN) 65 mg/dL 7-25 02/12/20 21 05:36 pm EDT CARBON DIOXIDE (CO2) 25 mEq/L 21-33 021 05:36 pm EDT CHLORIDE 100 mEq/L 98-110 02/11/2021 05:3 6 pm EDT * CBC W/DIFF Performed by: [place] [id number] Component Value Range Date RBC 3.32 M/cmm 4.00-6.60 02/11/2021 05:3 6 pm EDT MCHC 31.9 g/dL 31.0-36.5 02/11/2021 05:3 6 pm EDT HEMATOCRIT 30.8 % 42.0-54.0 02/11/2021 05:3 6 pm EDT MCH 29.6 pg 26.0-35.0 02/11/2021 05:3 6 pm EDT WBC 10.4 K/cmm 4.5-10.8 02/11/2021 05:3 6 pm EDT PLATELET 305 K/cmm 150-450 02/11/2021 05:3 6 pm EDT RDW 16.9 % 11.0-16.0 02/11/2021 05:3 6 pm EDT NEUTROPHILS 78.5 % 40.0-80.0 02/11/2021 05:3 6 pm EDT BASO (ABSOLUTE) 0.10 K/uL 0.00-0.30 02/11/2021 0 5:36 pm EDT * BASIC MET PNL INCL GFR (BMP) Performed by: [place] [id number] Component Value Range Date IPZ-URN-MZTEJXH 11 mL/min/1.73 m2 >60 02/11/2021 05:36 pm EDT GFR- 13 mL/min/1.73 m2 >60 05:36 pm EDT * CBC W/DIFF Performed by: [address] [id number] Component Value Range Date MCV 92.8 fL 80.0-100.0 02/11/2021 05:3 6 pm EDT LYMPHS (ABSOLUTE) 0.70 K/uL 0.90-5.50 02/11/2021 05:36 pm EDT MONOCYTES 9.5 % 2.0-12.0 02/11/2021 05:3 6 pm EDT LYMPHS 6.8 % 13.0-48.0 02/11/2021 05:3 6 pm EDT BASO 1.0 % 0.0-2.0 02/11/2021 05:3 6 pm EDT EOS 4.2 % 0.0-8.0 02/11/2021 05:3 6 pm EDT NEUTS (ABSOLUTE) 8.10 K/uL 1.50-7.60 02/11/2021 05:36 pm EDT EOS (ABSOLUTE) 0.40 K/uL 0.20-0.80 02/11/2021 05 :36 pm EDT MONOCYTES (ABSOLUTE) 1.00 K/uL 0.15-1.10 021 05:36 pm EDT * BASIC MET PNL INCL GFR (BMP) Performed by: [address] [id number] Component Value Range Date BUN/CREATININE RATIO 12 6-34 021 05:36 pm EDT * CBC W/DIFF Performed by: [address] [id number] Component Value Range Date MPV 8.8 fL 6.5-12.0 02/11/2021 05:3 6 pm EDT * Individual Tests: BASIC MET PNL INCL GFR (BMP) / CBC W/DIFF / SED RATE (ESR) / C-REACTIVE PROTEIN Performed by: [address] [id number] Component Value Range Date CRP 33.7 mg/L <10.0 02/11/2021 05:3 6 pm EDT SED RATE (ESR) 84 mm/hr 0-15 02/11/2021 05 :36 pm EDT * CBC W/DIFF Performed by: [address] [id number] Component Value Range Date NUCLEATED RBC 0.1 NRBC/100 WBC <1.0 02/11/2021 05:36 pm EDT * BASIC MET PNL INCL GFR (BMP) Performed by: [address] [id number] Component Value Range Date CREATININE 5.5 mg/dL 0.6-1.3 02/11/2021 05:3 6 pm EDT CALCIUM 8.7 mg/dL 8.4-10.2 02/11/2021 05:3 6 pm EDT GLUCOSE 81 02/11/2021 05:3 6 pm EDT * CBC W/DIFF Performed by: [address] [id number] Component Value Range Date ANISOCYTOSIS 1+ NEGATIVE 02/11/2021 05:3 6 pm EDT * FOOT COMPLETE, MIN 3V Performed by: [facility] Component Value Range Date FOOT COMPLETE, MIN 3V FOOT COMPLETE, MIN 3V, RIGHTSee NoteFINDINGS: Amputation at the mid fifth metatarsal. Subtle cortical lucencies at the distal aspect of the remaining fifth metatarsal. Mild forefoot and midfoot arthrosis. Atherosclerotic calcifications. No joint is location. No fracture lucency.See NoteCONCLUSION: 1. No obvious or acutely displaced fracture lucency. 2. Subtle cortical lucencies at the distal aspect of the remaining partially amputated fifth metatarsal. This may represent early osteomyelitis in the proper clinical setting. Consider a contrast-enhanced MRI if this is a concern.ELECTRONICALLY SIGNED BY TOYA DENTON D.O. 03/23/2021 10:09:22 PM CDT.Reason for Study: M79.671 PAIN IN RIGHT FOOTPrincipal Result Faculty Physician: TOYA DENTON ([id number])Tabulating Supervisor: HAL ARTIS (SSIEVERS)Manager Acute Tabulating Supervisor: MENDEZ 03/23/2021 11:09 pm EDT * DUPLEX LOWER EXTREMITY ARTERIAL UNILATERAL Performed by: [email or web address] [facility]) Component Value Range Date DUPLEX LOWER EXTREMITY ARTERIAL UNILATERAL DUPLEX LOWER EXTREMITY ARTERIAL UNILATERAL, RIGHTSee NoteFINDINGS: Right Lower Extremity Arterial Duplex Ultrasound: Real-time imaging, color and duplex Doppler ultrasound Right lower extremity were obtained. Peak systolic velocity: CERTIFIED PERSONAL FINANCE COUNSELOR: 154 cm/sec. PFA: 56 cm/sec, SFA: 107 cm/sec. VANESSA: 97 cm/sec. INJECTION MOLDING PROCESS TECHNICIAN: 39 cm/sec. DPA: 86 cm/sec. GEENA: 0.8. Right GEENA suggests mild to moderate ischemia. Posterior tibialis Doppler tracing partly obscured by overlying artifact appears to have monophasic Doppler tracing; with velocity drop off monophasic tracing at dorsalis pedis arteries suggesting 50% or more stenosis. Triphasic to biphasic Doppler tracing in the rest of visualized arteries. No occlusion in the examined arteries.CONCLUSION: 1. Right infrapopliteal arterial stenosis. GEENA suggests mild to moderate ischemia.ELECTRONICALLY SIGNED BY JENNIFER CHAIREZ D.O. 02/13/2021 1:45:21 PM CDT.Reason for Study: M79.604 PAIN IN RIGHT LEGPrincipal Result Faculty Physician: JENNIFER CHAIREZ ([id number])Tabulating Supervisor: PEDRO SCHAFER (CJALAFF)Manager Acute Tabulating Supervisor: MENDEZ 02/13/2021 02:45 pm EDT Encounters Encounter Performer Performer Role Encounter Diagnoses Location Date Discharge - Discharged / Transferred to another [facility] 09/24/2020 05:11 pm EST - 11/14/2020 12:45 pm EDT Discharge - Discharged / Transferred to another [facility] 12/11/2020 07:16 pm EDT - 12/23/2020 06:39 pm EDT Leave - Discharged / Transferred to another [facility] 12/29/2020 02:49 am EDT - 02/13/2021 09:08 pm EDT Discharge - Discharged / Transferred to another [facility] 02/14/2021 12:08 pm EDT - 02/22/2021 06:31 pm EDT Leave - Discharged / Transferred to another [facility] 02/28/2021 09:15 pm EDT - 04/25/2021 02:55 pm EDT Discharge - Discharged / Transferred to another [facility] 04/26/2021 01:23 am EDT - 05/16/2021 04:12 pm EDT Reason For Referral other Immunizations Vaccine Date TB 2 Step Mantoux Skin Test 09/24/2020 0 8:00 pm EST Pneumovax (PCV 13)(92298) 08/02/2020 01: 00 am EST SARS-COV-2 (COVID-19) 03/21/2021 02:32 p m EDT SARS-COV-2 (COVID-19) 02/20/2021 01:00 a m EDT Social History
--- OUTSIDE RECORDS SUMMARY | 2024-10-19 12:38 | XMS_ITS | Encounter Summary ---
Author Organization [facility] Healthcare Address [address] [place] [address] Care Team Providers Care Vp Ad Sales West Name Role Phone Mariposa Smalls RN Unavailable Warner Sidhu MD PhD Unavailable + Jewels Lamas MD Primary Care Provider + [phone] Mariposa Smalls RN Unavailable Frandy Colunga MD Unavailable [phone] Alcon Quintanilla DPM Unavailable [phone] No, Physician Primary Care Provider [phone] Theodore Solis MD Unavailable [phone] Leah MARINO MD, Lyman Lansing Unavailable [phone] Encounter Details Date Type Department Care Team (Late st Contact Info) Description 12/08/2020 Documentation [facility] Case Management [address] [place] [address] Elena Monzon LCSW Social History Tobacco Use Types Packs/Day Years Used Date Smoking Tobacco: Former Cigarettes 0.5 37 1 978 - 2015 Smokeless Tobacco: Never Comments:on and off Alcohol Use Standard Drinks/Week Comments Yes 0 (1 standard drink = 0.6 oz pur e alcohol) 2 drinks a month Social Connection and Isolation Panel [NHANES] A nswer Date Recorded In a typical week, how many times do you talk on the phone with family, friends, or neighbors? Patient declined 06/20/2020 How often do you get togethe r with friends or relatives? Patient declined 06/20/2020 How often do you attend lutheran or yarsanism serv ices? Patient declined 06/20/2020 Do you belong to any clubs o r organizations such as lutheran groups, unions, fraternal or athletic groups, or school groups? Patient declined 06/20/2020 How often do you attend meet ings of the clubs or organizations you belong to? Patient declined 06/20/2020 Are you , , di vorced, , never , or living with a partner? Patient declined 06/20/2020 AUDIT-C Answer Date Recorded Q1: How often do you have a drink containing alc ohol? Monthly or less 12/08/2020 Q2: How many drinks containi ng alcohol do you have on a typical day when you are drinking? 1 or 2 12/08/2020 Q3: How often do you have si x or more drinks on one occasion? Never 12/08/2020 Overall Financial Resource Strain (CARDIA) Answe r Date Recorded How hard is it for you to pa y for the very basics like food, housing, medical care, and heating? Not hard at all 06/20/2020 PRAPARE - Transportation Answer Date Re corded In the past 12 months, has l ack of transportation kept you from medical appointments or from getting medications? Patient declined 06/20/2020 In the past 12 months, has l ack of transportation kept you from meetings, work, or from getting things needed for daily living? Patient declined 06/20/2020 Sex and Gender Information Value Date Recorded Sex Assigned at Not on file Legal Sex Male 4:17 AM HABILITATION TRAINING SPECIALIST Gender Identity Not on file Sexual Orientation Not on file documented as of this encounter Functional Status documented as of this encounter Plan of Treatment Not on file documented as of this encounter Visit Diagnoses Not on filedocumented in this encounter Additional Health Concerns Infection Onset Date Last Indicated Resolved Time COVID: Recovered Comment:09/13/2020 IP Review - See note below regarding prior positive on 08/07/20 at [facility]. Spoke to ED team and there are no respiratory concerns at this time. Becka Nation RN 09/13/2020 09/13/2020 04/05/2021 3:05 AM C DT MRSA 11/14/2020 11/18/2020 10/31/2021 4:00 AM HABILITATION TRAINING SPECIALIST COVID: Suspected 02/13/2021 02/13/2021 02/13/2021 10:13 PM CDT COVID: Suspected 04/22/2021 04/22/2021 04/22/2021 7:17 AM CDT VRE 05/19/2021 05/19/2021 11/15/2021 3:05 AM CDT COVID: Suspected 12/06/2022 12/06/2022 12/06/2022 2:04 PM CDT COVID: Suspected 03/10/2023 03/10/2023 03/10/2023 10:14 AM CDT MRSA 03/11/2023 04/16/2023 10/13/2023 3:05 AM HABILITATION TRAINING SPECIALIST MDR gram neg/ESBL 04/16/2023 04/16/2023 C. difficile 04/26/2023 04/26/2023 documented as of this encounter Care Teams Vp Ad Sales West Relationship Specialty Start Date End Date Jewels Lamas MD [address] [address] PCP - General Family Practice 09/06/20 02/13/23 No, Physician PCP - General 02/14/23 Mariposa Smalls RN [address] [address] Insulation Board Coater Operator Cardiology 06/30/20 Warner Sidhu MD PhD [address] [address] Congressional Representative Cardiology 06/30/20 03/29/21 Mariposa Smalls RN [address] [address] Insulation Board Coater Operator Cardiology 06/30/20 Frandy Colunga MD [address] [facility] [address] [place] [address] Surgeon Vascular Surgery 02/28/21 Alcon Quintanilla DPM [address] [facility] [address] [place] [address] Surgeon Podiatry 02/28/21 Theodore Solis MD [address] [place] [address] Consulting Physician Internal Medicine 03/16/23 Raul Lynn IV, MD [facility] [address] Consulting Physician General Surgery 04/30/23 documented as of this encounter
--- OUTSIDE RECORDS SUMMARY | 2024-10-19 12:38 | XMS_ITS | Encounter Summary ---
Author Organization [facility] Address [address] [place] [address] Phone Care Team Providers Care Channel Executive Name Role Phone Avery Tay MD Primary Care Provider [phone] No, Physician Primary Care Provider [phone] Avery Tay MD Primary Care Provider [phone] Mariposa Smalls RN Unavailable Warner Sidhu MD PhD Unavailable + Jewels Lamas MD Primary Care Provider + [phone] Mariposa Smalls RN Unavailable Frandy Colunga MD Unavailable [phone] Alcon Quintanilla DPM Unavailable [phone] No, Physician Primary Care Provider [phone] Theodore Solis MD Unavailable [phone] Leah MARINO MD, Raul Woodard Unavailable + [phone] Encounter Details Date Type Department Care Team (Latest Contact Info) Description 09/06/2017 Orders Only [facility] CONVERSION Scanning, Provider Social History Tobacco Use Types Packs/Day Years Used Date Smoking Tobacco: Never Assessed Sex and Gender Information Value Date Recorded Sex Assigned at Not on file Legal Sex Male 4:17 AM MOWER SHARPENER Gender Identity Not on file Sexual Orientation Not on file documented as of this encounter Plan of Treatment Not on file documented as of this encounter Procedures Procedure Name Priority Date/Time Associated Diagnosis Comments VASCULAR LABORATORY REPORT 09/12/2017 3:49 PM MOWER SHARPENER VASCULAR LABORATORY REPORT 09/06/2017 2:11 PM MOWER SHARPENER VASCULAR LABORATORY REPORT 09/06/2017 1:55 PM MOWER SHARPENER documented in this encounter Results * VASCULAR LABORATORY REPORT (09/12/2017 3:49 PM MOWER SHARPENER) Anatomical Region Laterality Modality Ultrasound us Provider Scanning CV VASCULAR PROCEDURES Final R esult * VASCULAR LABORATORY REPORT (09/06/2017 2:11 PM MOWER SHARPENER) Anatomical Region Laterality Modality Ultrasound us Provider Scanning CV VASCULAR PROCEDURES Final R esult * VASCULAR LABORATORY REPORT (09/06/2017 1:55 PM MOWER SHARPENER) Anatomical Region Laterality Modality Ultrasound us Provider Scanning CV VASCULAR PROCEDURES Final R esult documented in this encounter Visit Diagnoses Not on filedocumented in this encounter Additional Health Concerns Infection Onset Date Last Indicated Resolved Time COVID: Suspected 06/18/2020 06/18/2020 06/18/2020 5:14 AM CDT Respiratory Infection (CHRISTOPHER), contact + droplet Comment:Automatically added due to negative COVID-19 result. IP Review- Patient classified as Low Risk for COVID-19 and has one negative COVID-19 test. Patient meets criteria for COVID-19 isolation discontinuation 06/18/20 5:40 AM Delma Boyce 06/18/2020 06/18/2020 06/18/2020 5:40 AM C DT COVID19 Comment:09/13/2020 IP Review - Pt was positive for COVID19 on 08/07/20 at [facility]; lab in Care Everywhere. There are no present respiratory concerns for this admission. Patient presents for wound assessment and management. Pt meets Recovered criteria. Becka Nation RN 09/13/2020 09/13/2020 09/13/2020 11:00 PM MOWER SHARPENER COVID: Recovered Comment:09/13/2020 IP Review - See note below regarding prior positive on 08/07/20 at [facility]. Spoke to ED team and there are no respiratory concerns at this time. Becka Nation RN 09/13/2020 09/13/2020 04/05/2021 3:05 AM C DT MRSA 11/14/2020 11/18/2020 10/31/2021 4:00 AM MOWER SHARPENER COVID: Suspected 02/13/2021 02/13/2021 02/13/2021 10:13 PM CDT COVID: Suspected 04/22/2021 04/22/2021 04/22/2021 7:17 AM CDT VRE 05/19/2021 05/19/2021 11/15/2021 3:05 AM CDT COVID: Suspected 12/06/2022 12/06/2022 12/06/2022 2:04 PM CDT COVID: Suspected 03/10/2023 03/10/2023 03/10/2023 10:14 AM CDT MRSA 03/11/2023 04/16/2023 10/13/2023 3:05 AM MOWER SHARPENER MDR gram neg/ESBL 04/16/2023 04/16/2023 C. difficile 04/26/2023 04/26/2023 documented as of this encounter Care Teams Channel Executive Relationship Specialty Start Date End Date Avery Tay MD [address] [place] [address] [place] [address] PCP - General 05/31/17 11/15/19 No, Physician PCP - General 11/16/19 02/23/20 Avery Tay MD [address] [place] [address] [place] [address] PCP - General 02/24/20 09/05/20 Jewels Lamas MD [address] [address] PCP - General Family Practice 09/06/20 02/13/23 No, Physician PCP - General 02/14/23 Mariposa Smalls, NOEMI [address] [address] Rn Procedure Cardiology 06/30/20 Warner Sidhu MD PhD [address] [address] Wildlife Refuge Specialist Cardiology 06/30/20 03/29/21 Mariposa Smalls, RN [address] [address] Rn Procedure Cardiology 06/30/20 Frandy Colunga MD [address] [address] Surgeon Vascular Surgery 02/28/21 Alcon Quintanilla DPM [address] [address] Surgeon Podiatry 02/28/21 Theodore Solis MD [address] [place] [address] Consulting Physician Internal Medicine 03/16/23 Raul Lynn IV, MD [address] [place] [address] Consulting Physician General Surgery 04/30/23 documented as of this encounter
--- OUTSIDE RECORDS SUMMARY | 2024-10-19 12:39 | XMS_ITS ---
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 (Primary) (I50.43 - ICD-10-CM) ACTIVE 07/25/2020 TYPE 2 DIABETES MELLITUS WIT H DIABETIC NEPHROPATHY (E11.21 - ICD-10-CM) ACTIVE 07/25/2020 DIABETES INSIPIDUS (E23.2 - ICD-10-CM) RESOLVED 07/25/2020 TYPE 2 DIABETES MELLITUS WIT H FOOT ULCER (E11.621 - ICD-10-CM) ACTIVE 07/25/2020 BENIGN INTRACRANIAL HYPERTENSION (G93.2 - ICD-10-CM) R ESOLVED 07/25/2020 07/25/2020 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) ACTIVE 07/25/2020 ENCOUNTER FOR ORTHOPEDIC AFT ERCARE FOLLOWING SURGICAL AMPUTATION (Z47.81 - ICD-10-CM) ACTIVE 07/25/2020 END STAGE RENAL DISEASE (N18.6 - ICD-10-CM) ACTIVE 07/25/2020 ANEMIA IN CHRONIC KIDNEY DISEASE (D63.1 - ICD-10-CM) A CTIVE 07/25/2020 CARDIOMYOPATHY, UNSPECIFIED (I42.9 - ICD-10-CM) ACTIVE 07/25/2020 UNSPECIFIED ATRIAL FLUTTER (I48.92 - ICD-10-CM) ACTIVE 07/25/2020 COVID-19 (U07.1 - ICD-10-CM) RESOLVED 08/15/2020 09/02/2020 PERSONAL HISTORY OF COVID-19 (Z86.16 - ICD-10-CM) ACTI VE 09/13/2020 EDEMA, UNSPECIFIED (R60.9 - ICD-10-CM) ACTIVE CARDIOMEGALY (I51.7 - ICD-10-CM) ACTIVE 08/15/20 20 HEART FAILURE, UNSPECIFIED (I50.9 - ICD-10-CM) ACTIVE 08/15/2020 IRON DEFICIENCY ANEMIA, UNSP ECIFIED (D50.9 - ICD-10-CM) ACTIVE 08/15/2020 DEPENDENCE ON RENAL DIALYSIS (Z99.2 - ICD-10-CM) ACTIV E 08/15/2020 DIARRHEA, UNSPECIFIED (R19.7 - ICD-10-CM) ACTIVE 08/15/2020 ACUTE CYSTITIS WITHOUT HEMATURIA (N30.00 - ICD-10-CM) RESOLVED 08/15/2020 09/02/2020 ACUTE KIDNEY FAILURE, UNSPECIFIED (N17.9 - ICD-10-CM) ACTIVE 07/28/2020 PERIPHERAL VASCULAR DISEASE, UNSPECIFIED (I73.9 - ICD-10-CM) ACTIVE 07/25/2020 TYPE 2 DIABETES MELLITUS WIT H DIABETIC POLYNEUROPATHY (E11.42 - ICD-10-CM) RESOLVED 07/25/2020 07/25/2020 BENIGN PROSTATIC HYPERPLASIA WITHOUT LOWER URINARY TRACT SYMPTOMS (N40.0 - ICD-10-CM) ACTIVE 07/25/2020 OBESITY, UNSPECIFIED (E66.9 - ICD-10-CM) ACTIVE 07/25/2020 ESSENTIAL (PRIMARY) HYPERTENSION (I10 - ICD-10-CM) ACT OPAL 07/25/2020 HYPERLIPIDEMIA, UNSPECIFIED (E78.5 - ICD-10-CM) ACTIVE 07/25/2020 MCC (CURRENT) USE OF INSULIN (Z79.4 - ICD-10-CM) ACTIVE 07/25/2020 PRESENCE OF AUTOMATIC (IMPLA NTABLE) CARDIAC DEFIBRILLATOR (Z95.810 - ICD-10-CM) ACTIVE 07/25/2020 HYPERTENSIVE CHRONIC KIDNEY DISEASE WITH STAGE 5 CHRONIC KIDNEY DISEASE OR END STAGE RENAL DISEASE (I12.0 - ICD-10-CM) ACTIVE 07/25/2020 OTHER PRIMARY THROMBOPHILIA (D68.59 - ICD-10-CM) ACTIV E 07/25/2020 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) ACTIVE 07/25/20 20 TYPE 2 DIABETES MELLITUS WIT H DIABETIC CHRONIC KIDNEY DISEASE (E11.22 - ICD-10-CM) ACTIVE 07/25/2020 CHRONIC KIDNEY DISEASE, STAG E 4 (SEVERE) (N18.4 - ICD-10-CM) ACTIVE 07/25/2020 CORNS AND CALLOSITIES (L84 - ICD-10-CM) ACTIVE 1 09/24/2019 NON-PRESSURE CHRONIC ULCER O F RIGHT HEEL AND MIDFOOT WITH UNSPECIFIED SEVERITY (L97.419 - ICD-10-CM) ACTIVE 07/25/2020 PLEURAL EFFUSION IN OTHER CO NDITIONS CLASSIFIED ELSEWHERE (J91.8 - ICD-10-CM) ACTIVE 07/25/2020 MAJOR DEPRESSIVE DISORDER, S MANSOOR EPISODE, UNSPECIFIED (F32.9 - ICD-10-CM) ACTIVE 07/25/2020 INSOMNIA, UNSPECIFIED (G47.00 - ICD-10-CM) ACTIVE 07/25/2020 OTHER HEMORRHOIDS (K64.8 - ICD-10-CM) ACTIVE Results * PATIENT IN HOSPITAL Performed by: [address] [id number] Component Value Range Date PATIENT IN HOSPITAL * 09/14/19 04:08 pm EST NOTIFIED NURSE(NAME): CHARGE 2020 04:08 pm EST LAB WILL REDRAW (DATE): WILL CALL 09/02 04:08 pm EST TESTS ORDERED: CMP 09/14/2020 04 :08 pm EST * CBC W/DIFF Performed by: [address] [id number] Component Value Range Date MONOCYTES (ABSOLUTE) 0.90 K/uL 0.15-1.10 021 05:15 pm EST * CMP-COMPREHENSIVE METABOLIC PNL Performed by: [address] [id number] Component Value Range Date BUN/CREATININE RATIO 12 6-34 021 05:15 pm EST GFR- 16 mL/min/1.73 m2 >60 05:15 pm EST CREATININE 4.5 mg/dL 0.6-1.3 09/07/2020 05:1 5 pm EST BILIRUBIN, TOTAL 1.0 mg/dL 0.2-1.2 09/07/2020 05:15 pm EST * Individual Tests: CMP-COMPREHENSIVE METABOLIC PNL / PHOSPHORUS / MAGNESIUM / CBC W/DIFF Performed by: [address] [id number] Component Value Range Date PHOSPHORUS 5.1 mg/dL 2.3-4.7 09/07/2020 05:1 5 pm EST MAGNESIUM 2.3 mg/dL 1.5-2.5 09/07/2020 05:1 5 pm EST * CMP-COMPREHENSIVE METABOLIC PNL Performed by: [address] [id number] Component Value Range Date GLUCOSE 119 09/07/2020 05:1 5 pm EST CALCIUM 8.4 mg/dL 8.4-10.2 09/07/2020 05:1 5 pm EST * CBC W/DIFF Performed by: [place] [id number] Component Value Range Date ANISOCYTOSIS 1+ NEGATIVE 09/07/2020 05:1 5 pm EST * CMP-COMPREHENSIVE METABOLIC PNL Performed by: [place] [id number] Component Value Range Date POTASSIUM 4.7 mEq/L 3.5-5.3 09/07/2020 05:1 5 pm EST SODIUM 135 mEq/L 135-145 09/07/2020 05:1 5 pm EST BUN (UREA NITROGEN) 52 mg/dL 7-25 09/07/19 21 05:15 pm EST CARBON DIOXIDE (CO2) 26 mEq/L 21-33 021 05:15 pm EST * CBC W/DIFF Performed by: [address] [id number] Component Value Range Date HEMOGLOBIN 8.4 g/dL 14.0-18.0 09/07/2020 05:1 5 pm EST * CMP-COMPREHENSIVE METABOLIC PNL Performed by: [address] [id number] Component Value Range Date CHLORIDE 98 mEq/L 96-110 09/07/2020 05:1 5 pm EST * CBC W/DIFF Performed by: [place] [id number] Component Value Range Date RBC 2.87 M/cmm 4.00-6.60 09/07/2020 05:1 5 pm EST MCHC 31.7 g/dL 31.0-36.5 09/07/2020 05:1 5 pm EST MCH 29.3 pg 26.0-35.0 09/07/2020 05:1 5 pm EST HEMATOCRIT 26.5 % 42.0-54.0 09/07/2020 05:1 5 pm EST PLATELET 228 K/cmm 150-450 09/07/2020 05:1 5 pm EST * CMP-COMPREHENSIVE METABOLIC PNL Performed by: [place] [id number] Component Value Range Date AST (SGOT) 72 IU/L 4-40 09/07/2020 05:1 5 pm EST ALBUMIN 3.1 g/dL 3.5-5.5 09/07/2020 05:1 5 pm EST PROTEIN, TOTAL 6.4 g/dL 6.0-8.3 09/07/2020 05 :15 pm EST ALKALINE PHOS 155 IU/L 34-136 09/07/2020 05: 15 pm EST * CBC W/DIFF Performed by: [place] [id number] Component Value Range Date WBC 8.6 K/cmm 4.5-10.8 09/07/2020 05:1 5 pm EST * CMP-COMPREHENSIVE METABOLIC PNL Performed by: [place] [id number] Component Value Range Date ALT (SGPT) 43 IU/L 4-55 09/07/2020 05:1 5 pm EST * CBC W/DIFF Performed by: [place] [id number] Component Value Range Date RDW 18.7 % 11.0-16.0 09/07/2020 05:1 5 pm EST NEUTROPHILS 80.2 % 40.0-80.0 09/07/2020 05:1 5 pm EST BASO (ABSOLUTE) 0.10 K/uL 0.00-0.30 09/07/2020 0 5:15 pm EST * CMP-COMPREHENSIVE METABOLIC PNL Performed by: [place] [id number] Component Value Range Date NRM-BJX-DCJUDYZ 14 mL/min/1.73 m2 >60 09/07/2020 05:15 pm EST * CBC W/DIFF Performed by: [place] [id number] Component Value Range Date MCV 92.2 fL 80.0-100.0 09/07/2020 05:1 5 pm EST LYMPHS (ABSOLUTE) 0.60 K/uL 0.90-5.50 09/07/2020 05:15 pm EST MONOCYTES 10.4 % 2.0-12.0 09/07/2020 05:1 5 pm EST LYMPHS 7.2 % 13.0-48.0 09/07/2020 05:1 5 pm EST BASO 0.6 % 0.0-2.0 09/07/2020 05:1 5 pm EST EOS 1.6 % 0.0-8.0 09/07/2020 05:1 5 pm EST NEUTS (ABSOLUTE) 6.90 K/uL 1.50-7.60 09/07/2020 05:15 pm EST EOS (ABSOLUTE) 0.10 K/uL 0.20-0.80 09/07/2020 05 :15 pm EST * CMP-COMPREHENSIVE METABOLIC PNL Performed by: [place] [id number] Component Value Range Date A/G RATIO 0.9 0.8-2.0 09/07/2020 05:1 5 pm EST * CBC W/DIFF Performed by: [place] [id number] Component Value Range Date MPV 8.5 fL 6.5-12.0 09/07/2020 05:1 5 pm EST * UA W/CULTURE IF INDICATED Performed by: [place] [id number] Component Value Range Date EPITHELIAL CELL NEGATIVE NEGATIVE 07/31/2020 0 2:01 pm EST HYALINE CASTS NEGATIVE NEGATIVE 07/31/2020 02: 01 pm EST KETONES,UR NEGATIVE NEGATIVE 07/31/2020 02:0 1 pm EST BACTERIA,UR NEGATIVE NEGATIVE 07/31/2020 02:0 1 pm EST WBC CLUMPS PRESENT ABSENT 07/31/2020 02:0 1 pm EST PH, URINE 5.0 5.0-8.5 07/31/2020 02:0 1 pm EST BILIRUBIN,UR NEGATIVE NEGATIVE 07/31/2020 02:0 1 pm EST CLARITY TURBID CLEAR 07/31/2020 02:0 1 pm EST * CBC W/DIFF Performed by: [address] [id number] Component Value Range Date NUCLEATED RBC 0.1 NRBC/100 WBC <1.0 07/31/2020 02:01 pm EST * UA W/CULTURE IF INDICATED Performed by: [address] [id number] Component Value Range Date LEUKOCYTES,UR 3+ NEGATIVE 07/31/2020 02: 01 pm EST BLOOD,UR 2+ NEGATIVE 07/31/2020 02:0 1 pm EST WBC,UR >50 /HPF <6 07/31/2020 02:0 1 pm EST PROTEIN,UR 3+ NEGATIVE 07/31/2020 02:0 1 pm EST RBC, URINE 21-50 /HPF <6 07/31/2020 02:0 1 pm EST GLUCOSE,UR 1+ NEGATIVE 07/31/2020 02:0 1 pm EST SPECIFIC GRAVITY 1.013 1.001-1.030 07/31/2020 02:01 pm EST UROBILINOGEN,UR NEGATIVE NEGATIVE 07/31/2020 0 2:01 pm EST * CBC W/DIFF Performed by: [address] [id number] Component Value Range Date MPV 8.7 fL 6.5-12.0 07/31/2020 02:0 1 pm EST EOS (ABSOLUTE) 0.10 K/uL 0.20-0.80 07/31/2020 02 :01 pm EST MONOCYTES (ABSOLUTE) 0.70 K/uL 0.15-1.10 020 02:01 pm EST EOS 2.3 % 0.0-8.0 07/31/2020 02:0 1 pm EST NEUTS (ABSOLUTE) 5.20 K/uL 1.50-7.60 07/31/2020 02:01 pm EST LYMPHS 6.8 % 13.0-48.0 07/31/2020 02:0 1 pm EST BASO 0.7 % 0.0-2.0 07/31/2020 02:0 1 pm EST LYMPHS (ABSOLUTE) 0.40 K/uL 0.90-5.50 07/31/2020 02:01 pm EST MONOCYTES 11.2 % 2.0-12.0 07/31/2020 02:0 1 pm EST * BASIC MET PNL INCL GFR (BMP) Performed by: [address] [id number] Component Value Range Date AGG-BRY-LGEWLIW 12 mL/min/1.73 m2 >60 07/31/2020 02:01 pm EST GFR- 15 mL/min/1.73 m2 >60 02:01 pm EST * CBC W/DIFF Performed by: [address] [id number] Component Value Range Date NEUTROPHILS 79.0 % 40.0-80.0 07/31/2020 02:0 1 pm EST PLATELET 171 K/cmm 150-450 07/31/2020 02:0 1 pm EST RDW 18.9 % 11.0-16.0 07/31/2020 02:0 1 pm EST HEMATOCRIT 27.6 % 42.0-54.0 07/31/2020 02:0 1 pm EST WBC 6.5 K/cmm 4.5-10.8 07/31/2020 02:0 1 pm EST MCHC 31.4 g/dL 31.0-36.5 07/31/2020 02:0 1 pm EST MCH 28.9 pg 26.0-35.0 07/31/2020 02:0 1 pm EST RBC 3.01 M/cmm 4.00-6.60 07/31/2020 02:0 1 pm EST * BASIC MET PNL INCL GFR (BMP) Performed by: [address] [id number] Component Value Range Date POTASSIUM 4.6 mEq/L 3.5-5.3 07/31/2020 02:0 1 pm EST CARBON DIOXIDE (CO2) 19 mEq/L 21-33 020 02:01 pm EST CHLORIDE 111 mEq/L 96-110 07/31/2020 02:0 1 pm EST SODIUM 144 mEq/L 135-145 07/31/2020 02:0 1 pm EST BUN (UREA NITROGEN) 130 mg/dL 7-25 07/31/20 20 02:01 pm EST * CBC W/DIFF Performed by: [address] [id number] Component Value Range Date HEMOGLOBIN 8.7 g/dL 14.0-18.0 07/31/2020 02:0 1 pm EST * BASIC MET PNL INCL GFR (BMP) Performed by: [address] [id number] Component Value Range Date CALCIUM 8.3 mg/dL 8.4-10.2 07/31/2020 02:0 1 pm EST * Individual Tests: UA W/CULTURE IF INDICATED / CULTURE, URINE / BASIC MET PNL INCL GFR (BMP) / CBC W/DIFF Performed by: [address] [id number] Component Value Range Date CULTURE, URINE . 07/31/2020 02 :01 pm EST * UA W/CULTURE IF INDICATED Performed by: [address] [id number] Component Value Range Date UA TO CX TRIGGER CULTURE INDICATED 2019 02:01 pm EST * CBC W/DIFF Performed by: [address] [id number] Component Value Range Date ANISOCYTOSIS 1+ NEGATIVE 07/31/2020 02:0 1 pm EST * BASIC MET PNL INCL GFR (BMP) Performed by: [address] [id number] Component Value Range Date CREATININE 5.0 mg/dL 0.6-1.3 07/31/2020 02:0 1 pm EST GLUCOSE 146 07/31/2020 02:0 1 pm EST * CBC W/DIFF Performed by: [address] [id number] Component Value Range Date MCV 91.8 fL 80.0-100.0 07/31/2020 02:0 1 pm EST * BASIC MET PNL INCL GFR (BMP) Performed by: [address] [id number] Component Value Range Date BUN/CREATININE RATIO 26 6-34 020 02:01 pm EST * UA W/CULTURE IF INDICATED Performed by: [address] [id number] Component Value Range Date NITRITE,UR NEGATIVE NEGATIVE 07/31/2020 02:0 1 pm EST COLOR EDILMA YELLOW 07/31/2020 02:0 1 pm EST Encounters Encounter Performer Performer Role Encounter Diagnoses Location Date Discharge - Discharged / Transferred to another hospital - [facility] - ([place], [place])(C) - [facility] 07/25/2020 07:21 pm EST - 07/28/2020 08:58 am EST Leave - [facility] 08/15/2020 07:03 pm EST - 09/07/2020 12:55 pm EST Discharge - [facility] ([place]) - [facility] 09/07/2020 07:51 pm EST - 09/13/2020 08:00 pm EST Reason For Referral eval of wounds Immunizations Vaccine Date Influenza 06/02/2020 01:00 am EDT TB 2 Step [place] Skin Test TB 2 Step [place] Skin Test 09/06/2020 0 1:00 am EST SARS-COV-2 (COVID-19) SARS-COV-2 (COVID-19) 09/13/2020 01:00 a m EST Social History
--- OUTSIDE RECORDS SUMMARY | 2024-10-19 12:39 | XMS_ITS ---
Author Organization [facility] ([facility]) Address [address] [place] [id number] Care Team Providers Care Pathology Technician Name Role Phone Unavailable Unavailable Unavailable Allergies, Adverse Reactions, Alerts Allergy Name Allergy Type Status Severity Reaction(s) Onset Date Inactive Date Treating Clinician Comments Penicillin Allergy Active Unknown 2022-01 05:00:0 0 Bee Venom Allergy Active Unknown 2022-01 05:00:0 0 Medications Ordered Medication Name Filled Medication Name Start Date Stop Date Current Medication? Ordering Clinician Indication Dosage Frequency Signature (SIG) Comments Components Mircera 09-26 16:36: 48 Yes [id number] Number of Repeats Allowed: Frequency: GITA dosing, every two weeks calcitriol 09-15 06:00: 00 Yes [id number] Number of Repeats Allowed: Frequency: Three times a week Venofer 2023-09 19:47: 13 Yes [id number] Number of Repeats Allowed: Frequency: One time a weekDosesO rdered: Maintenanc e Dose 50 Milligram Route: Intravenou s guaiFENesin 04-29 18:53: 23 Yes Number of Repeats Allowed: Frequency: As needed Nephro-[place] 04-29 18:51: 35 Yes Number of Repeats Allowed: Frequency: Once a day, at bedtime heparin sodium, porcine 03-19 05:00: 00 Yes [id number] Number of Repeats Allowed: Frequency: Every Dialysis TreatmentD osesOrdere d: Hourly Dose 500 Units/Hr 1:1000 Units/mLRo [place]: Intravenou s Tradjenta -12 13:14: 03 Yes Number of Repeats Allowed: Frequency: One time a day Senna Plus 09-13 13:13: 11 Yes Number of Repeats Allowed: Frequency: As needed Nitroglycer in 09-13 13:12: 08 Yes Number of Repeats Allowed: Frequency: As needed Midodrine HCl 09-13 13:10: 46 Yes Number of Repeats Allowed: Frequency: Two times a day Meclizine HCl 09-13 13:05: 58 Yes Number of Repeats Allowed: Frequency: As needed Lomotil 09-13 13:05: 03 Yes Number of Repeats Allowed: Frequency: As needed heparin sodium, porcine 2022-09 14:15: 46 Yes [id number] Number of Repeats Allowed: Frequency: Every Dialysis TreatmentD osesOrdere d: Loading Dose 1000 Units 1:1000 Units/mLRo [place]: Intravenou s ONS [facility] 05-14 17:01: 42 Yes [id number] Number of Repeats Allowed: Frequency: Every Dialysis Treatment Lidocaine 05-01 16:15: 05 Yes Number of Repeats Allowed: Frequency: As needed traMADol HCl 05-01 16:13: 18 Yes Number of Repeats Allowed: Frequency: As needed Tamsulosin HCl 05-01 16:12: 14 Yes Number of Repeats Allowed: Frequency: One time a day Sertraline HCl 05-01 16:11: 23 Yes Number of Repeats Allowed: Frequency: One time a day oxyCODONE HCl 05-01 16:09: 34 Yes Number of Repeats Allowed: Frequency: As needed Naloxone HCl 05-01 16:08: 15 Yes Number of Repeats Allowed: Frequency: As needed Mirtazapine 05-01 16:06: 47 Yes Number of Repeats Allowed: Frequency: Once a day, at bedtime Methocarbam ol 05-01 16:05: 38 Yes Number of Repeats Allowed: Frequency: Three times a day Gabapentin 05-01 16:04: 00 Yes Number of Repeats Allowed: Frequency: Once a day, at bedtime Folic Acid 05-01 16:03: 26 Yes Number of Repeats Allowed: Frequency: One time a day Fish Oil 05-01 16:02: 58 Yes Number of Repeats Allowed: Frequency: One time a day Ferrous Sulfate 05-01 16:02: 26 Yes Number of Repeats Allowed: Frequency: One time a day Atorvastati n Calcium 05-01 16:01: 31 Yes Number of Repeats Allowed: Frequency: One time a day Aspirin 05-01 16:01: 07 Yes Number of Repeats Allowed: Frequency: One time a day Acetaminoph en 05-01 15:59: 41 Yes Number of Repeats Allowed: Frequency: As needed Oxygen 05-01 14:46: 15 Yes [id number] Number of Repeats Allowed: Frequency: As needed ondansetron hydrochlori de 05-01 14:46: 06 Yes [id number] Number of Repeats Allowed: Frequency: Every 4 hours as needed Normal Saline Solution 0.9% NaCl 05-01 14:45: 56 Yes [id number] Number of Repeats Allowed: Frequency: As needed EpiPen 2-Candido 05-01 14:45: 48 Yes [id number] Number of Repeats Allowed: Frequency: Every 4 hours as needed diphenhydra mine hydrochlori de 05-01 14:45: 39 Yes [id number] Number of Repeats Allowed: Frequency: Every 4 hours as needed diphenhydra mine hydrochlori de 05-01 14:45: 24 Yes [id number] Number of Repeats Allowed: Frequency: Every 4 hours as needed clonidine 05-01 14:45: 13 Yes [id number] Number of Repeats Allowed: Frequency: Every 4 hours as needed acetaminoph en 05-01 14:45: 01 Yes [id number] Number of Repeats Allowed: Frequency: Every 4 hours as needed Problems This patient has no known problems. Procedures Procedure Date / Time Performed Performing Clinician Rochelle ce Details AV Fistula 2021-02-11 05:00:00 Access Site Upper Arm (Right) Access Use Start Date 2022-02-19 05:00:0 0 DIALYSIS TREATMENT INFORMATION Conventional Hemodialysis Date Type Treatment Start Date Treatment End Date Pre-Treatment Vitals Post-Treatment Vitals Weight Gain BFR DFR Actual UF Dialysis Access Febru 2024 In-Ce nter Hemod ialys is Treat ment 2024-10-16 T16:23:00. 000Z 2024-10-16 T19:24:01. 000Z BP Sitting (Pre-Dialysis) 113/73 mmHg BP Sitting (Post-D ialysis ) 168/ 84 mmHg Sitting Heart Rate Pre-Dialysis 48 BPM Sitting H eart Rate Post-Dialysis 56 BPM Temperature Pre-Dialysis 97.3 degF Temperature Post -Dialysis 98 degF October 14, 2024 In-Center Hemodialysis Treatment 8552-38-33N07:20:05.000Z 7523-35-69B73:50:05.000Z BP Sitting (Pre-Dialysis) 118/58 mmHg BP Sitting (Post-Dialysis) 140/63 mmHg Concurrent Access: falseAV Fistula Upper Arm (Right) Arterial Sitting Heart Rate Pre-Dialysis 51 BPM Sitting H eart Rate Post-Dialysis 55 BPM Temperature Pre-Dialysis 98 degF Temperature Post -Dialysis 98 degF October 12, 2024 In-Center Hemodialysis Treatment 8656-78-02L44:21:12.000Z 2657-67-82H91:47:27.000Z BP Sitting (Pre-Dialysis) 111/57 mmHg BP Sitting (Post-Dialysis) 116/51 mmHg Concurrent Access: falseAV Fistula Upper Arm (Right) Arterial Sitting Heart Rate Pre-Dialysis 55 BPM Sitting H eart Rate Post-Dialysis 55 BPM Temperature Pre-Dialysis 97.9 degF Temperature Post -Dialysis 98.1 degF October 09, 2024 In-Center Hemodialysis Treatment 7624-18-08Q67:28:00.000Z 6706-14-58F96:47:29.000Z BP Sitting (Pre-Dialysis) 136/55 mmHg BP Sitting (Post-Dialysis) 143/55 mmHg Concurrent Access: falseAV Fistula Upper Arm (Right) Arterial Sitting Heart Rate Pre-Dialysis 42 BPM Sitting H eart Rate Post-Dialysis 47 BPM Temperature Pre-Dialysis 98.1 degF Temperature Post -Dialysis 98.1 degF October 07, 2024 In-Center Hemodialysis Treatment 3159-67-18V70:34:48.000Z 9161-14-38B81:57:43.000Z BP Sitting (Pre-Dialysis) 137/69 mmHg BP Sitting (Post-Dialysis) 133/68 mmHg Concurrent Access: falseAV Fistula Upper Arm (Right) Arterial Sitting Heart Rate Pre-Dialysis 52 BPM Sitting H eart Rate Post-Dialysis 52 BPM Temperature Pre-Dialysis 97.9 degF Temperature Post -Dialysis 97.3 degF October 05, 2024 In-Center Hemodialysis Treatment 0951-56-87P21:34:00.000Z 2896-00-36Z15:08:53.000Z BP Sitting (Pre-Dialysis) 123/56 mmHg BP Sitting (Post-Dialysis) 131/60 mmHg Concurrent Access: falseAV Fistula Upper Arm (Right) Arterial Sitting Heart Rate Pre-Dialysis 50 BPM Sitting H eart Rate Post-Dialysis 53 BPM Temperature Pre-Dialysis 98 degF Temperature Post -Dialysis 97.8 degF October 02, 2024 In-Center Hemodialysis Treatment 9784-17-75Q05:33:20.000Z 2030-23-99B06:40:25.000Z BP Sitting (Pre-Dialysis) 115/53 mmHg BP Sitting (Post-Dialysis) 119/55 mmHg Concurrent Access: falseAV Fistula Upper Arm (Right) Arterial Sitting Heart Rate Pre-Dialysis 48 BPM Sitting H eart Rate Post-Dialysis 52 BPM Temperature Pre-Dialysis 97.8 degF Temperature Post -Dialysis 98 degF September 30, 2024 In-Center Hemodialysis Treatment 3074-07-52Z48:28:00.000Z 8169-52-87Z90:46:35.000Z BP Sitting (Pre-Dialysis) 112/51 mmHg BP Sitting (Post-Dialysis) 131/58 mmHg Concurrent Access: falseAV Fistula Upper Arm (Right) Arterial Sitting Heart Rate Pre-Dialysis 40 BPM Sitting H eart Rate Post-Dialysis 48 BPM Temperature Pre-Dialysis 97.2 degF Temperature Post -Dialysis 98.2 degF September 28, 2024 In-Center Hemodialysis Treatment 7795-14-68Q87:37:00.000Z 7473-45-19I54:10:29.000Z BP Sitting (Pre-Dialysis) 130/63 mmHg BP Sitting (Post-Dialysis) 101/49 mmHg Concurrent Access: falseAV Fistula Upper Arm (Right) Arterial Sitting Heart Rate Pre-Dialysis 52 BPM Sitting H eart Rate Post-Dialysis 52 BPM Temperature Pre-Dialysis 97.6 degF Temperature Post -Dialysis 98 degF September 25, 2024 In-Center Hemodialysis Treatment 3465-18-04B15:05:04.000Z 7587-18-48J06:19:00.000Z BP Sitting (Pre-Dialysis) 139/65 mmHg BP Sitting (Post-Dialysis) 134/63 mmHg Concurrent Access: falseAV Fistula Upper Arm (Right) Arterial Sitting Heart Rate Pre-Dialysis 49 BPM Sitting H eart Rate Post-Dialysis 52 BPM Temperature Pre-Dialysis 97.2 degF Temperature Post -Dialysis 97.3 degF September 23, 2024 In-Center Hemodialysis Treatment 7143-43-96J37:12:35.000Z 9981-24-76P22:06:45.000Z BP Sitting (Pre-Dialysis) 126/62 mmHg BP Sitting (Post-Dialysis) 131/60 mmHg Concurrent Access: falseAV Fistula Upper Arm (Right) Arterial Sitting Heart Rate Pre-Dialysis 48 BPM Sitting H eart Rate Post-Dialysis 50 BPM Temperature Pre-Dialysis 97.6 degF Temperature Post -Dialysis 97.4 degF September 21, 2024 In-Center Hemodialysis Treatment 8020-97-46I03:02:27.000Z 7664-15-22V34:44:07.000Z BP Sitting (Pre-Dialysis) 109/53 mmHg BP Sitting (Post-Dialysis) 127/60 mmHg Concurrent Access: falseAV Fistula Upper Arm (Right) Arterial Sitting Heart Rate Pre-Dialysis 53 BPM Sitting H eart Rate Post-Dialysis 56 BPM Temperature Pre-Dialysis 98.2 degF Temperature Post -Dialysis 98.1 degF September 18, 2024 In-Center Hemodialysis Treatment 5608-55-67R24:32:29.000Z 5042-83-63B01:02:04.000Z BP Sitting (Pre-Dialysis) 141/66 mmHg BP Sitting (Post-Dialysis) 142/68 mmHg Concurrent Access: falseAV Fistula Upper Arm (Right) Arterial Sitting Heart Rate Pre-Dialysis 49 BPM Sitting H eart Rate Post-Dialysis 53 BPM Temperature Pre-Dialysis 97.7 degF Temperature Post -Dialysis 97.3 degF September 16, 2024 In-Center Hemodialysis Treatment 7039-78-50Y43:49:23.000Z 8726-87-97I81:51:53.000Z BP Sitting (Pre-Dialysis) 132/62 mmHg BP Sitting (Post-Dialysis) 127/71 mmHg Concurrent Access: falseAV Fistula Upper Arm (Right) Arterial Sitting Heart Rate Pre-Dialysis 51 BPM Sitting H eart Rate Post-Dialysis 58 BPM Temperature Pre-Dialysis 97.5 degF Temperature Post -Dialysis 97.7 degF September 14, 2024 In-Center Hemodialysis Treatment 6646-99-97D15:54:32.000Z 5960-42-95D16:24:32.000Z BP Sitting (Pre-Dialysis) 166/73 mmHg BP Sitting (Post-Dialysis) 133/66 mmHg Concurrent Access: falseAV Fistula Upper Arm (Right) Arterial Sitting Heart Rate Pre-Dialysis 62 BPM Sitting H eart Rate Post-Dialysis 59 BPM Temperature Pre-Dialysis 98 degF Temperature Post -Dialysis 98 degF September 09, 2024 In-Center Hemodialysis Treatment 4939-17-39C37:26:00.000Z 6139-57-85S93:34:24.000Z BP Sitting (Pre-Dialysis) 168/62 mmHg BP Sitting (Post-Dialysis) 128/62 mmHg Concurrent Access: falseAV Fistula Upper Arm (Right) Arterial Sitting Heart Rate Pre-Dialysis 48 BPM Sitting H eart Rate Post-Dialysis 58 BPM Temperature Pre-Dialysis 97.7 degF Temperature Post -Dialysis 98 degF September 04, 2024 In-Center Hemodialysis Treatment 1399-38-03H84:08:00.000Z 4304-85-18H53:15:15.000Z BP Sitting (Pre-Dialysis) 134/88 mmHg BP Sitting (Post-Dialysis) 143/67 mmHg Concurrent Access: falseAV Fistula Upper Arm (Right) Arterial Sitting Heart Rate Pre-Dialysis 56 BPM Sitting H eart Rate Post-Dialysis 52 BPM Temperature Pre-Dialysis 97.7 degF Temperature Post -Dialysis 97.6 degF September 01, 2024 In-Center Hemodialysis Treatment 9650-16-19P45:51:52.000Z 3813-73-75R56:29:22.000Z BP Sitting (Pre-Dialysis) 141/69 mmHg BP Sitting (Post-Dialysis) 149/72 mmHg Concurrent Access: falseAV Fistula Upper Arm (Right) Arterial Sitting Heart Rate Pre-Dialysis 56 BPM Sitting H eart Rate Post-Dialysis 54 BPM Temperature Pre-Dialysis 97.5 degF Temperature Post -Dialysis 98.1 degF August 30, 2024 In-Center Hemodialysis Treatment 8156-85-83U68:55:29.000Z 2607-89-51L20:56:19.000Z BP Sitting (Pre-Dialysis) 139/66 mmHg BP Sitting (Post-Dialysis) 122/64 mmHg Concurrent Access: falseAV Fistula Upper Arm (Right) Arterial Sitting Heart Rate Pre-Dialysis 57 BPM Sitting H eart Rate Post-Dialysis 56 BPM Temperature Pre-Dialysis 97.6 degF Temperature Post -Dialysis 98 degF August 28, 2024 In-Center Hemodialysis Treatment 8703-89-70F70:08:49.000Z 8200-22-29V44:20:29.000Z BP Sitting (Pre-Dialysis) 136/64 mmHg BP Sitting (Post-Dialysis) 130/59 mmHg Concurrent Access: falseAV Fistula Upper Arm (Right) Arterial Sitting Heart Rate Pre-Dialysis 58 BPM Sitting H eart Rate Post-Dialysis 61 BPM Temperature Pre-Dialysis 98.1 degF Temperature Post -Dialysis 98 degF August 25, 2024 In-Center Hemodialysis Treatment 8679-48-41U54:13:22.000Z 8659-69-69V56:58:47.000Z BP Sitting (Pre-Dialysis) 142/67 mmHg BP Sitting (Post-Dialysis) 103/52 mmHg Concurrent Access: falseAV Fistula Upper Arm (Right) Arterial Sitting Heart Rate Pre-Dialysis 56 BPM Sitting H eart Rate Post-Dialysis 57 BPM Temperature Pre-Dialysis 97.7 degF Temperature Post -Dialysis 97.7 degF August 23, 2024 In-Center Hemodialysis Treatment 4052-24-89S84:02:44.000Z 5098-43-93U32:02:19.000Z BP Sitting (Pre-Dialysis) 144/73 mmHg BP Sitting (Post-Dialysis) 121/50 mmHg Concurrent Access: falseAV Fistula Upper Arm (Right) Arterial Sitting Heart Rate Pre-Dialysis 62 BPM Sitting H eart Rate Post-Dialysis 56 BPM Temperature Pre-Dialysis 97.9 degF Temperature Post -Dialysis 97.2 degF August 21, 2024 In-Center Hemodialysis Treatment 8821-49-24H31:03:39.000Z 3276-28-95J56:18:14.000Z BP Sitting (Pre-Dialysis) 125/72 mmHg BP Sitting (Post-Dialysis) 118/68 mmHg Concurrent Access: falseAV Fistula Upper Arm (Right) Arterial Sitting Heart Rate Pre-Dialysis 63 BPM Sitting H eart Rate Post-Dialysis 62 BPM Temperature Pre-Dialysis 97.8 degF Temperature Post -Dialysis 97.6 degF August 19, 2024 In-Center Hemodialysis Treatment 5105-16-93F87:01:00.000Z 6966-39-19W26:22:35.000Z BP Sitting (Pre-Dialysis) 146/74 mmHg BP Sitting (Post-Dialysis) 114/59 mmHg Concurrent Access: falseAV Fistula Upper Arm (Right) Arterial Sitting Heart Rate Pre-Dialysis 63 BPM Sitting H eart Rate Post-Dialysis 58 BPM Temperature Pre-Dialysis 97.7 degF Temperature Post -Dialysis 98.3 degF August 17, 2024 In-Center Hemodialysis Treatment 2396-97-43A32:18:20.000Z 7360-84-86J39:43:45.000Z BP Sitting (Pre-Dialysis) 128/68 mmHg BP Sitting (Post-Dialysis) 117/56 mmHg Concurrent Access: falseAV Fistula Upper Arm (Right) Arterial Sitting Heart Rate Pre-Dialysis 56 BPM Sitting H eart Rate Post-Dialysis 53 BPM Temperature Pre-Dialysis 97.2 degF Temperature Post -Dialysis 98.2 degF August 14, 2024 In-Center Hemodialysis Treatment 1438-37-35P64:58:59.000Z 3652-57-85G82:14:49.000Z BP Sitting (Pre-Dialysis) 146/76 mmHg BP Sitting (Post-Dialysis) 139/67 mmHg Concurrent Access: falseAV Fistula Upper Arm (Right) Arterial Sitting Heart Rate Pre-Dialysis 54 BPM Sitting H eart Rate Post-Dialysis 56 BPM Temperature Pre-Dialysis 98 degF Temperature Post -Dialysis 98 degF August 12, 2024 In-Center Hemodialysis Treatment 0480-45-35F27:36:00.000Z 2687-42-80H98:10:00.000Z BP Sitting (Pre-Dialysis) 156/71 mmHg BP Sitting (Post-Dialysis) 133/63 mmHg Concurrent Access: falseAV Fistula Upper Arm (Right) Arterial Sitting Heart Rate Pre-Dialysis 55 BPM Sitting H eart Rate Post-Dialysis 60 BPM Temperature Pre-Dialysis 97.7 degF Temperature Post -Dialysis 98.5 degF August 10, 2024 In-Center Hemodialysis Treatment 4294-54-62N44:26:00.000Z 0115-27-79B04:26:49.000Z BP Sitting (Pre-Dialysis) 138/71 mmHg BP Sitting (Post-Dialysis) 116/54 mmHg Concurrent Access: falseAV Fistula Upper Arm (Right) Arterial Sitting Heart Rate Pre-Dialysis 53 BPM Sitting H eart Rate Post-Dialysis 54 BPM Temperature Pre-Dialysis 98 degF Temperature Post -Dialysis 98.2 degF August 07, 2024 In-Center Hemodialysis Treatment 3205-56-67A52:30:00.000Z 1104-02-23C71:04:07.000Z BP Sitting (Pre-Dialysis) 144/72 mmHg BP Sitting (Post-Dialysis) 148/67 mmHg Concurrent Access: falseAV Fistula Upper Arm (Right) Arterial Sitting Heart Rate Pre-Dialysis 63 BPM Sitting H eart Rate Post-Dialysis 91 BPM Temperature Pre-Dialysis 98.2 degF Temperature Post -Dialysis 97.6 degF August 05, 2024 In-Center Hemodialysis Treatment 1257-72-47Z50:26:06.000Z 2217-26-20O00:16:06.000Z BP Sitting (Pre-Dialysis) 152/74 mmHg BP Sitting (Post-Dialysis) 131/53 mmHg Concurrent Access: falseAV Fistula Upper Arm (Right) Arterial Sitting Heart Rate Pre-Dialysis 59 BPM Sitting H eart Rate Post-Dialysis 67 BPM Temperature Pre-Dialysis 97.8 degF Temperature Post -Dialysis 97.6 degF August 03, 2024 In-Center Hemodialysis Treatment 6949-84-56F35:41:31.000Z 9766-42-41V04:11:06.000Z BP Sitting (Pre-Dialysis) 134/70 mmHg BP Sitting (Post-Dialysis) 127/65 mmHg Concurrent Access: falseAV Fistula Upper Arm (Right) Arterial Sitting Heart Rate Pre-Dialysis 57 BPM Sitting H eart Rate Post-Dialysis 49 BPM Temperature Pre-Dialysis 98 degF Temperature Post -Dialysis 97.3 degF July 31, 2024 In-Center Hemodialysis Treatment 5630-41-80R69:45:37.000Z 0215-06-94N54:24:47.000Z BP Sitting (Pre-Dialysis) 156/70 mmHg BP Sitting (Post-Dialysis) 150/70 mmHg Concurrent Access: falseAV Fistula Upper Arm (Right) Arterial Sitting Heart Rate Pre-Dialysis 72 BPM Sitting H eart Rate Post-Dialysis 51 BPM Temperature Pre-Dialysis 98 degF Temperature Post -Dialysis 97 degF July 28, 2024 In-Center Hemodialysis Treatment 5440-94-93M05:15:23.000Z 0043-47-98U55:14:58.000Z BP Sitting (Pre-Dialysis) 152/58 mmHg BP Sitting (Post-Dialysis) 148/71 mmHg Concurrent Access: falseAV Fistula Upper Arm (Right) Arterial Sitting Heart Rate Pre-Dialysis 45 BPM Sitting H eart Rate Post-Dialysis 60 BPM Temperature Pre-Dialysis 97.9 degF Temperature Post -Dialysis 97.3 degF July 26, 2024 In-Center Hemodialysis Treatment 4143-70-20G41:05:00.000Z 0916-55-24O29:25:03.000Z BP Sitting (Pre-Dialysis) 136/71 mmHg BP Sitting (Post-Dialysis) 125/61 mmHg Concurrent Access: falseAV Fistula Upper Arm (Right) Arterial Sitting Heart Rate Pre-Dialysis 58 BPM Sitting H eart Rate Post-Dialysis 57 BPM Temperature Pre-Dialysis 97.5 degF Temperature Post -Dialysis 98 degF July 24, 2024 In-Center Hemodialysis Treatment 1394-81-68J08:03:46.000Z 3757-08-68H13:36:16.000Z BP Sitting (Pre-Dialysis) 155/73 mmHg BP Sitting (Post-Dialysis) 160/72 mmHg Concurrent Access: falseAV Fistula Upper Arm (Right) Arterial Sitting Heart Rate Pre-Dialysis 78 BPM Sitting H eart Rate Post-Dialysis 58 BPM Temperature Pre-Dialysis 98.1 degF Temperature Post -Dialysis 97.8 degF July 20, 2024 In-Center Hemodialysis Treatment 0592-38-68H13:44:41.000Z 1130-96-12M46:25:31.000Z BP Sitting (Pre-Dialysis) 150/72 mmHg BP Sitting (Post-Dialysis) 128/60 mmHg Concurrent Access: falseAV Fistula Upper Arm (Right) Arterial Sitting Heart Rate Pre-Dialysis 60 BPM Sitting H eart Rate Post-Dialysis 58 BPM Temperature Pre-Dialysis 97.8 degF Temperature Post -Dialysis 98 degF July 17, 2024 In-Center Hemodialysis Treatment 7389-48-83K43:12:00.000Z 0258-65-93N88:42:00.000Z BP Sitting (Pre-Dialysis) 148/78 mmHg BP Sitting (Post-Dialysis) 115/64 mmHg Concurrent Access: falseAV Fistula Upper Arm (Right) Arterial Sitting Heart Rate Pre-Dialysis 61 BPM Sitting H eart Rate Post-Dialysis 71 BPM Temperature Pre-Dialysis 97.6 degF Temperature Post -Dialysis 97.3 degF July 15, 2024 In-Center Hemodialysis Treatment 1375-76-74D70:55:29.000Z 9397-74-94G98:17:34.000Z BP Sitting (Pre-Dialysis) 143/66 mmHg BP Sitting (Post-Dialysis) 120/56 mmHg Concurrent Access: falseAV Fistula Upper Arm (Right) Arterial Sitting Heart Rate Pre-Dialysis 52 BPM Sitting H eart Rate Post-Dialysis 58 BPM Temperature Pre-Dialysis 97.3 degF Temperature Post -Dialysis 98.2 degF July 10, 2024 In-Center Hemodialysis Treatment 3653-28-30B94:40:55.000Z 7609-82-72C22:24:15.000Z BP Sitting (Pre-Dialysis) 156/75 mmHg BP Sitting (Post-Dialysis) 129/65 mmHg Concurrent Access: falseAV Fistula Upper Arm (Right) Arterial Sitting Heart Rate Pre-Dialysis 56 BPM Sitting H eart Rate Post-Dialysis 62 BPM Temperature Pre-Dialysis 98.2 degF Temperature Post -Dialysis 98 degF July 08, 2024 In-Center Hemodialysis Treatment 5848-90-49W50:46:17.000Z 9976-16-50Y72:26:42.000Z BP Sitting (Pre-Dialysis) 157/65 mmHg BP Sitting (Post-Dialysis) 120/58 mmHg Concurrent Access: falseAV Fistula Upper Arm (Right) Arterial Sitting Heart Rate Pre-Dialysis 63 BPM BP Standi ng (Post-Dialysis) 113/57 mmHg Temperature Pre-Dialysis 98 degF Sitting Heart Ra te Post-Dialysis 57 BPM Standing Heart Rate Post-Rosa lysis 55 BPM Temperature Post-Dialysis 97 .8 degF July 06, 2024 In-Center Hemodialysis Treatment 5847-04-24I57:42:00.000Z 0456-73-53Z03:12:57.000Z BP Sitting (Pre-Dialysis) 134/70 mmHg BP Sitting (Post-Dialysis) 119/60 mmHg Concurrent Access: falseAV Fistula Upper Arm (Right) Arterial Sitting Heart Rate Pre-Dialysis 56 BPM Sitting H eart Rate Post-Dialysis 56 BPM Temperature Pre-Dialysis 98 degF Temperature Post -Dialysis 98.1 degF July 03, 2024 In-Center Hemodialysis Treatment 0981-11-90Z20:39:00.000Z 7679-25-92X94:15:18.000Z BP Sitting (Pre-Dialysis) 147/66 mmHg BP Sitting (Post-Dialysis) 132/65 mmHg Concurrent Access: falseAV Fistula Upper Arm (Right) Arterial Sitting Heart Rate Pre-Dialysis 57 BPM Sitting H eart Rate Post-Dialysis 55 BPM Temperature Pre-Dialysis 97.8 degF Temperature Post -Dialysis 97.9 degF July 01, 2024 In-Center Hemodialysis Treatment 0200-01-82G73:30:47.000Z 3618-78-24S75:17:02.000Z BP Sitting (Pre-Dialysis) 146/67 mmHg BP Sitting (Post-Dialysis) 151/70 mmHg Concurrent Access: falseAV Fistula Upper Arm (Right) Arterial Sitting Heart Rate Pre-Dialysis 56 BPM Sitting H eart Rate Post-Dialysis 62 BPM Temperature Pre-Dialysis 97.7 degF Temperature Post -Dialysis 97.6 degF June 29, 2024 In-Center Hemodialysis Treatment 0739-27-74H35:47:39.000Z 5753-21-33R59:13:29.000Z BP Sitting (Pre-Dialysis) 110/55 mmHg BP Sitting (Post-Dialysis) 153/74 mmHg Concurrent Access: falseAV Fistula Upper Arm (Right) Arterial Sitting Heart Rate Pre-Dialysis 51 BPM Sitting H eart Rate Post-Dialysis 56 BPM Temperature Pre-Dialysis 98 degF Temperature Post -Dialysis 98.2 degF June 26, 2024 In-Center Hemodialysis Treatment 4572-57-72D43:55:00.000Z 6734-05-36N47:28:35.000Z BP Sitting (Pre-Dialysis) 121/55 mmHg BP Sitting (Post-Dialysis) 111/51 mmHg Concurrent Access: falseAV Fistula Upper Arm (Right) Arterial Sitting Heart Rate Pre-Dialysis 46 BPM Sitting H eart Rate Post-Dialysis 55 BPM Temperature Pre-Dialysis 98.1 degF Temperature Post -Dialysis 98.2 degF June 24, 2024 In-Center Hemodialysis Treatment 8731-08-20P14:10:05.000Z 0109-66-93I31:13:00.000Z BP Sitting (Pre-Dialysis) 134/69 mmHg BP Sitting (Post-Dialysis) 109/58 mmHg Concurrent Access: falseAV Fistula Upper Arm (Right) Arterial Sitting Heart Rate Pre-Dialysis 44 BPM Sitting H eart Rate Post-Dialysis 60 BPM Temperature Pre-Dialysis 97.9 degF Temperature Post -Dialysis 97.3 degF June 22, 2024 In-Center Hemodialysis Treatment 9240-24-35L02:02:57.000Z 3310-52-94W15:33:47.000Z BP Sitting (Pre-Dialysis) 149/66 mmHg BP Sitting (Post-Dialysis) 117/55 mmHg Concurrent Access: falseAV Fistula Upper Arm (Right) Arterial Sitting Heart Rate Pre-Dialysis 51 BPM Sitting H eart Rate Post-Dialysis 66 BPM Temperature Pre-Dialysis 98.1 degF Temperature Post -Dialysis 98.3 degF June 19, 2024 In-Center Hemodialysis Treatment 2334-30-96F14:53:00.000Z 3694-31-77A75:56:10.000Z BP Sitting (Pre-Dialysis) 151/69 mmHg BP Sitting (Post-Dialysis) 137/64 mmHg Concurrent Access: falseAV Fistula Upper Arm (Right) Arterial Sitting Heart Rate Pre-Dialysis 51 BPM Sitting H eart Rate Post-Dialysis 71 BPM Temperature Pre-Dialysis 98.5 degF Temperature Post -Dialysis 97.6 degF June 17, 2024 In-Center Hemodialysis Treatment 8363-34-07J71:58:14.000Z 4710-50-30Q05:01:34.000Z BP Sitting (Pre-Dialysis) 154/74 mmHg BP Sitting (Post-Dialysis) 124/54 mmHg Concurrent Access: falseAV Fistula Upper Arm (Right) Arterial Sitting Heart Rate Pre-Dialysis 54 BPM Sitting H eart Rate Post-Dialysis 46 BPM Temperature Pre-Dialysis 98 degF Temperature Post -Dialysis 97.2 degF June 15, 2024 In-Center Hemodialysis Treatment 4207-56-75N19:51:16.000Z 8766-23-61C92:17:06.000Z BP Sitting (Pre-Dialysis) 131/62 mmHg BP Sitting (Post-Dialysis) 108/52 mmHg Concurrent Access: falseAV Fistula Upper Arm (Right) Arterial Sitting Heart Rate Pre-Dialysis 62 BPM Sitting H eart Rate Post-Dialysis 54 BPM Temperature Pre-Dialysis 98 degF Temperature Post -Dialysis 97.8 degF June 12, 2024 In-Center Hemodialysis Treatment 3672-21-38G08:02:00.000Z 8706-16-28J59:29:26.000Z BP Sitting (Pre-Dialysis) 166/56 mmHg BP Sitting (Post-Dialysis) 154/74 mmHg Concurrent Access: falseAV Fistula Upper Arm (Right) Arterial Sitting Heart Rate Pre-Dialysis 45 BPM Sitting H eart Rate Post-Dialysis 65 BPM Temperature Pre-Dialysis 98 degF Temperature Post -Dialysis 97.5 degF June 10, 2024 In-Center Hemodialysis Treatment 9575-68-46B34:41:00.000Z 2956-90-94H82:44:15.000Z BP Sitting (Pre-Dialysis) 138/67 mmHg BP Sitting (Post-Dialysis) 140/67 mmHg Concurrent Access: falseAV Fistula Upper Arm (Right) Arterial Sitting Heart Rate Pre-Dialysis 57 BPM Sitting H eart Rate Post-Dialysis 60 BPM Temperature Pre-Dialysis 98.3 degF Temperature Post -Dialysis 97.3 degF June 05, 2024 In-Center Hemodialysis Treatment 2561-63-27E65:10:39.000Z 9017-22-56F75:20:39.000Z BP Sitting (Pre-Dialysis) 132/60 mmHg BP Sitting (Post-Dialysis) 129/63 mmHg Concurrent Access: falseAV Fistula Upper Arm (Right) Arterial Sitting Heart Rate Pre-Dialysis 46 BPM Sitting H eart Rate Post-Dialysis 62 BPM Temperature Pre-Dialysis 98 degF Temperature Post -Dialysis 97.1 degF June 01, 2024 In-Center Hemodialysis Treatment 2431-09-65N36:46:00.000Z 0685-23-75M86:24:12.000Z BP Sitting (Pre-Dialysis) 133/60 mmHg BP Sitting (Post-Dialysis) 123/59 mmHg Concurrent Access: falseAV Fistula Upper Arm (Right) Arterial Sitting Heart Rate Pre-Dialysis 57 BPM Sitting H eart Rate Post-Dialysis 57 BPM Temperature Pre-Dialysis 97.6 degF Temperature Post -Dialysis 97.3 degF May 29, 2024 In-Center Hemodialysis Treatment 9731-24-99G30:03:00.000Z 0578-16-95S44:07:29.000Z BP Sitting (Pre-Dialysis) 133/60 mmHg BP Sitting (Post-Dialysis) 140/67 mmHg Concurrent Access: falseAV Fistula Upper Arm (Right) Arterial Sitting Heart Rate Pre-Dialysis 54 BPM Sitting H eart Rate Post-Dialysis 59 BPM Temperature Pre-Dialysis 97.8 degF Temperature Post -Dialysis 98.3 degF May 27, 2024 In-Center Hemodialysis Treatment 8165-09-73K74:08:26.000Z 3285-83-93N95:18:01.000Z BP Sitting (Pre-Dialysis) 142/67 mmHg BP Sitting (Post-Dialysis) 120/55 mmHg Concurrent Access: falseAV Fistula Upper Arm (Right) Arterial Sitting Heart Rate Pre-Dialysis 61 BPM Sitting H eart Rate Post-Dialysis 59 BPM Temperature Pre-Dialysis 97.6 degF Temperature Post -Dialysis 98 degF May 25, 2024 In-Center Hemodialysis Treatment 6813-68-56P09:43:23.000Z 1568-39-52Z04:14:13.000Z BP Sitting (Pre-Dialysis) 132/52 mmHg BP Sitting (Post-Dialysis) 141/64 mmHg Concurrent Access: falseAV Fistula Upper Arm (Right) Arterial Sitting Heart Rate Pre-Dialysis 51 BPM Sitting H eart Rate Post-Dialysis 62 BPM Temperature Pre-Dialysis 97.5 degF Temperature Post -Dialysis 97.8 degF May 22, 2024 In-Center Hemodialysis Treatment 5201-42-56V30:02:00.000Z 1727-25-64Y64:17:27.000Z BP Sitting (Pre-Dialysis) 127/65 mmHg BP Sitting (Post-Dialysis) 110/51 mmHg Concurrent Access: falseAV Fistula Upper Arm (Right) Arterial Sitting Heart Rate Pre-Dialysis 53 BPM Sitting H eart Rate Post-Dialysis 63 BPM Temperature Pre-Dialysis 97.6 degF Temperature Post -Dialysis 97.8 degF May 20, 2024 In-Center Hemodialysis Treatment 0256-46-16F06:10:20.000Z 9980-33-49A61:28:15.000Z BP Sitting (Pre-Dialysis) 140/58 mmHg BP Sitting (Post-Dialysis) 122/63 mmHg Concurrent Access: falseAV Fistula Upper Arm (Right) Arterial Sitting Heart Rate Pre-Dialysis 49 BPM Sitting H eart Rate Post-Dialysis 57 BPM Temperature Pre-Dialysis 97.7 degF May 18, 2024 In-Center Hemodialysis Treatment 7549-25-34T08:05:00.000Z 7891-37-32O34:17:52.000Z BP Sitting (Pre-Dialysis) 154/73 mmHg BP Sitting (Post-Dialysis) 133/65 mmHg Concurrent Access: falseAV Fistula Upper Arm (Right) Arterial Sitting Heart Rate Pre-Dialysis 52 BPM Sitting H eart Rate Post-Dialysis 57 BPM Temperature Pre-Dialysis 97.8 degF Temperature Post -Dialysis 98.2 degF May 15, 2024 In-Center Hemodialysis Treatment 6054-07-17O35:30:02.000Z 9336-36-89D15:01:17.000Z BP Sitting (Pre-Dialysis) 155/72 mmHg BP Sitting (Post-Dialysis) 141/61 mmHg Concurrent Access: falseAV Fistula Upper Arm (Right) Arterial Sitting Heart Rate Pre-Dialysis 57 BPM Sitting H eart Rate Post-Dialysis 62 BPM Temperature Pre-Dialysis 98.2 degF Temperature Post -Dialysis 97.8 degF May 13, 2024 In-Center Hemodialysis Treatment 1029-91-03V13:56:23.000Z 0101-16-78W28:10:08.000Z BP Sitting (Pre-Dialysis) 106/52 mmHg BP Sitting (Post-Dialysis) 105/50 mmHg Concurrent Access: falseAV Fistula Upper Arm (Right) Arterial Sitting Heart Rate Pre-Dialysis 42 BPM Sitting H eart Rate Post-Dialysis 54 BPM Temperature Pre-Dialysis 97.9 degF Temperature Post -Dialysis 98.1 degF May 11, 2024 In-Center Hemodialysis Treatment 0666-38-49J91:48:19.000Z 8228-41-81Z32:18:19.000Z BP Sitting (Pre-Dialysis) 133/74 mmHg BP Sitting (Post-Dialysis) 143/67 mmHg Concurrent Access: falseAV Fistula Upper Arm (Right) Arterial Sitting Heart Rate Pre-Dialysis 48 BPM Sitting H eart Rate Post-Dialysis 57 BPM Temperature Pre-Dialysis 98 degF Temperature Post -Dialysis 96.6 degF May 08, 2024 In-Center Hemodialysis Treatment 4541-59-22A68:50:00.000Z 2018-08-97V52:20:32.000Z BP Sitting (Pre-Dialysis) 156/66 mmHg BP Sitting (Post-Dialysis) 115/51 mmHg Concurrent Access: falseAV Fistula Upper Arm (Right) Arterial Sitting Heart Rate Pre-Dialysis 57 BPM Sitting H eart Rate Post-Dialysis 60 BPM Temperature Pre-Dialysis 98 degF Temperature Post -Dialysis 98 degF May 06, 2024 In-Center Hemodialysis Treatment 2138-30-89J97:46:57.000Z 3894-79-92N23:14:52.000Z BP Sitting (Pre-Dialysis) 134/66 mmHg BP Sitting (Post-Dialysis) 111/70 mmHg Concurrent Access: falseAV Fistula Upper Arm (Right) Arterial Sitting Heart Rate Pre-Dialysis 65 BPM Sitting H eart Rate Post-Dialysis 62 BPM Temperature Pre-Dialysis 98.4 degF Temperature Post -Dialysis 97.7 degF May 04, 2024 In-Center Hemodialysis Treatment 400 mL/min 800 mL/min Concurrent Access: false May 01, 2024 In-Center Hemodialysis Treatment 20 24 -0 T1 5: 55 :0 0. 00 0Z 20 24 0 T1 9: 07 :4 4. 00 0Z BP Sitting (Pre-Dial ysis) 151/64 mmHg BP Sitting (Post-Rosa lysis) 110/5 2 mmHg Concurrent Access: falseAV Fistula Upper Arm (Right) Arterial Sitting Heart Rate Pre-Dialysis 50 BPM Sitting H eart Rate Post-Dialysis 61 BPM Temperature Pre-Dialysis 98 degF Temperature Post -Dialysis 97.6 degF April 29, 2024 In-Center Hemodialysis Treatment 9824-91-84Q32:56:00.000Z 3817-41-25X84:27:31.000Z BP Sitting (Pre-Dialysis) 136/64 mmHg BP Sitting (Post-Dialysis) 147/64 mmHg Concurrent Access: falseAV Fistula Upper Arm (Right) Arterial Sitting Heart Rate Pre-Dialysis 51 BPM Sitting H eart Rate Post-Dialysis 60 BPM Temperature Pre-Dialysis 98.4 degF Temperature Post -Dialysis 97.3 degF April 27, 2024 In-Center Hemodialysis Treatment 5972-95-03Y92:07:00.000Z 9795-33-26T85:25:42.000Z BP Sitting (Pre-Dialysis) 142/67 mmHg BP Sitting (Post-Dialysis) 107/62 mmHg Concurrent Access: falseAV Fistula Upper Arm (Right) Arterial Sitting Heart Rate Pre-Dialysis 57 BPM Sitting H eart Rate Post-Dialysis 64 BPM Temperature Pre-Dialysis 98.2 degF Temperature Post -Dialysis 96.7 degF April 24, 2024 In-Center Hemodialysis Treatment 3451-17-23C14:04:09.000Z 5044-42-94M46:24:59.000Z BP Sitting (Pre-Dialysis) 143/59 mmHg BP Sitting (Post-Dialysis) 111/67 mmHg Concurrent Access: falseAV Fistula Upper Arm (Right) Arterial Sitting Heart Rate Pre-Dialysis 56 BPM Sitting H eart Rate Post-Dialysis 62 BPM Temperature Pre-Dialysis 98.2 degF Temperature Post -Dialysis 97.3 degF April 22, 2024 In-Center Hemodialysis Treatment 2717-37-01M67:40:00.000Z 0314-87-21U50:37:47.000Z BP Sitting (Pre-Dialysis) 160/65 mmHg BP Sitting (Post-Dialysis) 124/56 mmHg Concurrent Access: falseAV Fistula Upper Arm (Right) Arterial Sitting Heart Rate Pre-Dialysis 66 BPM Sitting H eart Rate Post-Dialysis 56 BPM Temperature Pre-Dialysis 98.1 degF Temperature Post -Dialysis 97 degF April 20, 2024 In-Center Hemodialysis Treatment 9123-51-64J09:36:00.000Z 8851-12-14H33:09:09.000Z BP Sitting (Pre-Dialysis) 123/62 mmHg BP Sitting (Post-Dialysis) 104/45 mmHg Concurrent Access: falseAV Fistula Upper Arm (Right) Arterial Sitting Heart Rate Pre-Dialysis 55 BPM Sitting H eart Rate Post-Dialysis 54 BPM Temperature Pre-Dialysis 98.2 degF Temperature Post -Dialysis 97.3 degF April 17, 2024 In-Center Hemodialysis Treatment 8247-00-36C41:44:00.000Z 6670-42-46L16:08:24.000Z BP Sitting (Pre-Dialysis) 147/63 mmHg BP Sitting (Post-Dialysis) 117/55 mmHg Concurrent Access: falseAV Fistula Upper Arm (Right) Arterial Sitting Heart Rate Pre-Dialysis 58 BPM Sitting H eart Rate Post-Dialysis 57 BPM Temperature Pre-Dialysis 97.9 degF Temperature Post -Dialysis 97.7 degF April 15, 2024 In-Center Hemodialysis Treatment 2478-51-29I25:31:00.000Z 4145-64-90K47:05:50.000Z BP Sitting (Pre-Dialysis) 157/71 mmHg BP Sitting (Post-Dialysis) 130/60 mmHg Concurrent Access: falseAV Fistula Upper Arm (Right) Arterial Sitting Heart Rate Pre-Dialysis 59 BPM Sitting H eart Rate Post-Dialysis 60 BPM Temperature Pre-Dialysis 98 degF Temperature Post -Dialysis 97.5 degF April 13, 2024 In-Center Hemodialysis Treatment 5385-78-32O65:51:38.000Z 9657-19-34Y47:35:48.000Z BP Sitting (Pre-Dialysis) 143/70 mmHg BP Sitting (Post-Dialysis) 100/45 mmHg Concurrent Access: falseAV Fistula Upper Arm (Right) Arterial Sitting Heart Rate Pre-Dialysis 56 BPM Sitting H eart Rate Post-Dialysis 72 BPM Temperature Pre-Dialysis 98.2 degF Temperature Post -Dialysis 97.6 degF April 10, 2024 In-Center Hemodialysis Treatment 0494-87-01M63:12:30.000Z 4908-89-48E27:17:05.000Z BP Sitting (Pre-Dialysis) 138/63 mmHg BP Sitting (Post-Dialysis) 139/63 mmHg Concurrent Access: falseAV Fistula Upper Arm (Right) Arterial Sitting Heart Rate Pre-Dialysis 62 BPM Sitting H eart Rate Post-Dialysis 63 BPM Temperature Pre-Dialysis 98.2 degF Temperature Post -Dialysis 98 degF April 08, 2024 In-Center Hemodialysis Treatment 1178-49-55Y81:22:00.000Z 0066-38-45B69:56:39.000Z BP Sitting (Pre-Dialysis) 120/64 mmHg BP Sitting (Post-Dialysis) 109/59 mmHg Concurrent Access: falseAV Fistula Upper Arm (Right) Arterial Sitting Heart Rate Pre-Dialysis 60 BPM Sitting H eart Rate Post-Dialysis 55 BPM Temperature Pre-Dialysis 97.2 degF Temperature Post -Dialysis 97.1 degF April 06, 2024 In-Center Hemodialysis Treatment 0495-97-47B42:52:00.000Z 9103-05-46Q04:17:51.000Z BP Sitting (Pre-Dialysis) 145/64 mmHg BP Sitting (Post-Dialysis) 141/58 mmHg Concurrent Access: falseAV Fistula Upper Arm (Right) Arterial Sitting Heart Rate Pre-Dialysis 60 BPM Sitting H eart Rate Post-Dialysis 47 BPM Temperature Pre-Dialysis 98.1 degF Temperature Post -Dialysis 97.2 degF April 03, 2024 In-Center Hemodialysis Treatment 2742-40-66I36:41:19.000Z 3416-65-83G55:11:19.000Z BP Sitting (Pre-Dialysis) 144/55 mmHg BP Sitting (Post-Dialysis) 102/47 mmHg Concurrent Access: falseAV Fistula Upper Arm (Right) Arterial Sitting Heart Rate Pre-Dialysis 56 BPM Sitting H eart Rate Post-Dialysis 58 BPM Temperature Pre-Dialysis 97.2 degF Temperature Post -Dialysis 97.1 degF April 01, 2024 In-Center Hemodialysis Treatment 4762-84-73U89:13:55.000Z 3189-60-89Q59:09:20.000Z BP Sitting (Pre-Dialysis) 127/64 mmHg BP Sitting (Post-Dialysis) 122/59 mmHg Concurrent Access: falseAV Fistula Upper Arm (Right) Arterial Sitting Heart Rate Pre-Dialysis 44 BPM Sitting H eart Rate Post-Dialysis 56 BPM Temperature Pre-Dialysis 97.6 degF Temperature Post -Dialysis 97.2 degF March 30, 2024 In-Center Hemodialysis Treatment 9704-04-56M44:04:00.000Z 2343-72-53W08:26:17.000Z BP Sitting (Pre-Dialysis) 137/66 mmHg BP Sitting (Post-Dialysis) 119/53 mmHg Concurrent Access: falseAV Fistula Upper Arm (Right) Arterial Sitting Heart Rate Pre-Dialysis 55 BPM Sitting H eart Rate Post-Dialysis 52 BPM Temperature Pre-Dialysis 98 degF Temperature Post -Dialysis 97.5 degF March 27, 2024 In-Center Hemodialysis Treatment 4341-24-42O81:51:19.000Z 5612-33-76R79:10:29.000Z BP Sitting (Pre-Dialysis) 138/66 mmHg BP Sitting (Post-Dialysis) 128/52 mmHg Concurrent Access: falseAV Fistula Upper Arm (Right) Arterial Sitting Heart Rate Pre-Dialysis 64 BPM Sitting H eart Rate Post-Dialysis 45 BPM Temperature Pre-Dialysis 97.7 degF Temperature Post -Dialysis 97.2 degF March 25, 2024 In-Center Hemodialysis Treatment 9072-10-28P47:11:00.000Z 4698-40-19P54:48:03.000Z BP Sitting (Pre-Dialysis) 106/46 mmHg BP Sitting (Post-Dialysis) 125/61 mmHg Concurrent Access: falseAV Fistula Upper Arm (Right) Arterial Sitting Heart Rate Pre-Dialysis 44 BPM Sitting H eart Rate Post-Dialysis 59 BPM Temperature Pre-Dialysis 97.8 degF Temperature Post -Dialysis 97.3 degF March 23, 2024 In-Center Hemodialysis Treatment 3209-54-68R46:50:00.000Z 0250-42-84T07:14:56.000Z BP Sitting (Pre-Dialysis) 131/64 mmHg BP Sitting (Post-Dialysis) 128/65 mmHg Concurrent Access: falseAV Fistula Upper Arm (Right) Arterial Sitting Heart Rate Pre-Dialysis 51 BPM Sitting H eart Rate Post-Dialysis 63 BPM Temperature Pre-Dialysis 97.9 degF Temperature Post -Dialysis 98.2 degF March 20, 2024 In-Center Hemodialysis Treatment 1466-81-00H54:49:54.000Z 1382-19-62W70:22:55.000Z BP Sitting (Pre-Dialysis) 157/76 mmHg BP Sitting (Post-Dialysis) 123/50 mmHg Concurrent Access: falseAV Fistula Upper Arm (Right) Arterial Sitting Heart Rate Pre-Dialysis 66 BPM Sitting H eart Rate Post-Dialysis 55 BPM Temperature Pre-Dialysis 98.2 degF Temperature Post -Dialysis 97.6 degF March 18, 2024 In-Center Hemodialysis Treatment 1378-24-30W84:47:26.000Z 0094-11-87L82:17:26.000Z BP Sitting (Pre-Dialysis) 130/54 mmHg BP Sitting (Post-Dialysis) 134/54 mmHg Concurrent Access: falseAV Fistula Upper Arm (Right) Arterial Sitting Heart Rate Pre-Dialysis 43 BPM Sitting H eart Rate Post-Dialysis 49 BPM Temperature Pre-Dialysis 98.4 degF Temperature Post -Dialysis 97.7 degF March 16, 2024 In-Center Hemodialysis Treatment 6831-77-65B78:48:29.000Z 1951-01-45B92:21:49.000Z BP Sitting (Pre-Dialysis) 141/59 mmHg BP Sitting (Post-Dialysis) 115/67 mmHg Concurrent Access: falseAV Fistula Upper Arm (Right) Arterial Sitting Heart Rate Pre-Dialysis 47 BPM Sitting H eart Rate Post-Dialysis 60 BPM Temperature Pre-Dialysis 98.2 degF Temperature Post -Dialysis 97.2 degF March 13, 2024 In-Center Hemodialysis Treatment 2914-23-77B67:45:00.000Z 6140-28-62M39:28:19.000Z BP Sitting (Pre-Dialysis) 131/60 mmHg BP Sitting (Post-Dialysis) 117/60 mmHg Concurrent Access: falseAV Fistula Upper Arm (Right) Arterial Sitting Heart Rate Pre-Dialysis 52 BPM Sitting H eart Rate Post-Dialysis 56 BPM Temperature Pre-Dialysis 97.7 degF Temperature Post -Dialysis 97.7 degF March 11, 2024 In-Center Hemodialysis Treatment 2634-01-00I72:58:00.000Z 8313-96-05E16:28:00.000Z BP Sitting (Pre-Dialysis) 128/62 mmHg BP Sitting (Post-Dialysis) 122/51 mmHg Concurrent Access: falseAV Fistula Upper Arm (Right) Arterial Sitting Heart Rate Pre-Dialysis 54 BPM Sitting H eart Rate Post-Dialysis 53 BPM Temperature Pre-Dialysis 98.4 degF Temperature Post -Dialysis 96.1 degF March 09, 2024 In-Center Hemodialysis Treatment 4026-97-07X26:49:00.000Z 7272-21-32J65:27:28.000Z BP Sitting (Pre-Dialysis) 130/63 mmHg BP Sitting (Post-Dialysis) 115/44 mmHg Concurrent Access: falseAV Fistula Upper Arm (Right) Arterial Sitting Heart Rate Pre-Dialysis 61 BPM Sitting H eart Rate Post-Dialysis 64 BPM Temperature Pre-Dialysis 97.6 degF Temperature Post -Dialysis 97.6 degF March 02, 2024 In-Center Hemodialysis Treatment 2232-72-97N76:57:00.000Z 5322-85-09S87:12:36.000Z BP Sitting (Pre-Dialysis) 122/59 mmHg BP Sitting (Post-Dialysis) 120/63 mmHg Concurrent Access: falseAV Fistula Upper Arm (Right) Arterial Sitting Heart Rate Pre-Dialysis 80 BPM Sitting H eart Rate Post-Dialysis 69 BPM Temperature Pre-Dialysis 97.5 degF Temperature Post -Dialysis 97.5 degF February 28, 2024 In-Center Hemodialysis Treatment 2162-78-60S34:11:37.000Z 8849-70-21P82:21:12.000Z BP Sitting (Pre-Dialysis) 126/59 mmHg BP Sitting (Post-Dialysis) 116/60 mmHg Concurrent Access: falseAV Fistula Upper Arm (Right) Arterial Sitting Heart Rate Pre-Dialysis 59 BPM Sitting H eart Rate Post-Dialysis 59 BPM Temperature Pre-Dialysis 98.1 degF Temperature Post -Dialysis 98.9 degF February 26, 2024 In-Center Hemodialysis Treatment 0506-60-69H80:29:00.000Z 3005-24-52E47:04:37.000Z BP Sitting (Pre-Dialysis) 144/58 mmHg BP Sitting (Post-Dialysis) 119/63 mmHg Concurrent Access: falseAV Fistula Upper Arm (Right) Arterial Sitting Heart Rate Pre-Dialysis 54 BPM Sitting H eart Rate Post-Dialysis 61 BPM Temperature Pre-Dialysis 97.6 degF Temperature Post -Dialysis 97.2 degF February 24, 2024 In-Center Hemodialysis Treatment 2215-06-27W28:13:35.000Z 0847-60-86E48:56:30.000Z BP Sitting (Pre-Dialysis) 127/65 mmHg BP Sitting (Post-Dialysis) 129/64 mmHg Concurrent Access: falseAV Fistula Upper Arm (Right) Arterial Sitting Heart Rate Pre-Dialysis 58 BPM Sitting H eart Rate Post-Dialysis 59 BPM Temperature Pre-Dialysis 97.6 degF Temperature Post -Dialysis 97.6 degF February 21, 2024 In-Center Hemodialysis Treatment 6044-14-05W89:32:42.000Z 5696-92-86Y73:08:07.000Z BP Sitting (Pre-Dialysis) 127/60 mmHg BP Sitting (Post-Dialysis) 111/45 mmHg Concurrent Access: falseAV Fistula Upper Arm (Right) Arterial Sitting Heart Rate Pre-Dialysis 66 BPM Sitting H eart Rate Post-Dialysis 59 BPM Temperature Pre-Dialysis 98.1 degF Temperature Post -Dialysis 97.6 degF February 19, 2024 In-Center Hemodialysis Treatment 3888-14-43S75:03:00.000Z 7913-36-25S36:19:49.000Z BP Sitting (Pre-Dialysis) 127/50 mmHg BP Sitting (Post-Dialysis) 122/59 mmHg Concurrent Access: falseAV Fistula Upper Arm (Right) Arterial Sitting Heart Rate Pre-Dialysis 58 BPM Sitting H eart Rate Post-Dialysis 58 BPM Temperature Pre-Dialysis 97.6 degF Temperature Post -Dialysis 97.3 degF February 17, 2024 In-Center Hemodialysis Treatment 7954-74-75H61:08:56.000Z 4369-98-47D06:32:00.000Z BP Sitting (Pre-Dialysis) 138/67 mmHg BP Sitting (Post-Dialysis) 138/68 mmHg Concurrent Access: falseAV Fistula Upper Arm (Right) Arterial Sitting Heart Rate Pre-Dialysis 55 BPM Sitting H eart Rate Post-Dialysis 60 BPM Temperature Pre-Dialysis 98.3 degF Temperature Post -Dialysis 97.4 degF February 14, 2024 In-Center Hemodialysis Treatment 6673-93-66Y89:00:00.000Z 7350-51-62P48:14:17.000Z BP Sitting (Pre-Dialysis) 124/58 mmHg BP Sitting (Post-Dialysis) 126/51 mmHg Concurrent Access: falseAV Fistula Upper Arm (Right) Arterial Sitting Heart Rate Pre-Dialysis 45 BPM Sitting H eart Rate Post-Dialysis 45 BPM Temperature Pre-Dialysis 97.6 degF Temperature Post -Dialysis 97.5 degF February 12, 2024 In-Center Hemodialysis Treatment 4341-77-55V91:37:27.000Z 4446-30-81A73:07:52.000Z BP Sitting (Pre-Dialysis) 125/56 mmHg BP Sitting (Post-Dialysis) 140/62 mmHg Concurrent Access: falseAV Fistula Upper Arm (Right) Arterial Sitting Heart Rate Pre-Dialysis 47 BPM Sitting H eart Rate Post-Dialysis 63 BPM Temperature Pre-Dialysis 98.4 degF Temperature Post -Dialysis 97.3 degF February 10, 2024 In-Center Hemodialysis Treatment 6449-94-90H93:38:23.000Z 7324-59-61L58:07:58.000Z BP Sitting (Pre-Dialysis) 128/60 mmHg BP Sitting (Post-Dialysis) 134/63 mmHg Concurrent Access: falseAV Fistula Upper Arm (Right) Arterial Sitting Heart Rate Pre-Dialysis 51 BPM Sitting H eart Rate Post-Dialysis 59 BPM Temperature Pre-Dialysis 97.8 degF Temperature Post -Dialysis 97.2 degF February 07, 2024 In-Center Hemodialysis Treatment 0072-96-27Q52:13:00.000Z 2312-82-46W53:48:00.000Z BP Sitting (Pre-Dialysis) 130/59 mmHg BP Sitting (Post-Dialysis) 114/50 mmHg Concurrent Access: falseAV Fistula Upper Arm (Right) Arterial Sitting Heart Rate Pre-Dialysis 57 BPM Sitting H eart Rate Post-Dialysis 61 BPM Temperature Pre-Dialysis 98.2 degF Temperature Post -Dialysis 98.2 degF February 05, 2024 In-Center Hemodialysis Treatment 8399-45-90D27:22:18.000Z 4863-05-17Q97:38:58.000Z BP Sitting (Pre-Dialysis) 146/71 mmHg BP Sitting (Post-Dialysis) 132/59 mmHg Concurrent Access: falseAV Fistula Upper Arm (Right) Arterial Sitting Heart Rate Pre-Dialysis 58 BPM Sitting H eart Rate Post-Dialysis 58 BPM Temperature Pre-Dialysis 98.2 degF Temperature Post -Dialysis 98 degF February 03, 2024 In-Center Hemodialysis Treatment 6829-52-79L64:38:38.000Z 5893-57-19T40:08:13.000Z BP Sitting (Pre-Dialysis) 138/70 mmHg BP Sitting (Post-Dialysis) 136/70 mmHg Concurrent Access: falseAV Fistula Upper Arm (Right) Arterial Sitting Heart Rate Pre-Dialysis 56 BPM Sitting H eart Rate Post-Dialysis 66 BPM Temperature Pre-Dialysis 97.9 degF Temperature Post -Dialysis 97.6 degF January 31, 2024 In-Center Hemodialysis Treatment 2405-78-97H22:57:29.000Z 0765-13-91A08:27:04.000Z BP Sitting (Pre-Dialysis) 129/64 mmHg BP Sitting (Post-Dialysis) 113/47 mmHg Concurrent Access: falseAV Fistula Upper Arm (Right) Arterial Sitting Heart Rate Pre-Dialysis 72 BPM Sitting H eart Rate Post-Dialysis 83 BPM Temperature Pre-Dialysis 98.4 degF Temperature Post -Dialysis 98.2 degF January 29, 2024 In-Center Hemodialysis Treatment 6033-31-03Y98:56:00.000Z 6269-89-00J77:27:13.000Z BP Sitting (Pre-Dialysis) 140/79 mmHg BP Sitting (Post-Dialysis) 144/68 mmHg Concurrent Access: falseAV Fistula Upper Arm (Right) Arterial Sitting Heart Rate Pre-Dialysis 66 BPM Sitting H eart Rate Post-Dialysis 62 BPM Temperature Pre-Dialysis 98.1 degF Temperature Post -Dialysis 97.6 degF January 27, 2024 In-Center Hemodialysis Treatment 1344-57-80Z30:55:00.000Z 6604-98-75X20:14:59.000Z BP Sitting (Pre-Dialysis) 146/71 mmHg BP Sitting (Post-Dialysis) 146/67 mmHg Concurrent Access: falseAV Fistula Upper Arm (Right) Arterial Sitting Heart Rate Pre-Dialysis 55 BPM Sitting H eart Rate Post-Dialysis 64 BPM Temperature Pre-Dialysis 98.3 degF Temperature Post -Dialysis 97.4 degF January 24, 2024 In-Center Hemodialysis Treatment 0362-06-60J12:15:00.000Z 9942-75-59I63:14:31.000Z BP Sitting (Pre-Dialysis) 156/70 mmHg BP Sitting (Post-Dialysis) 131/63 mmHg Concurrent Access: falseAV Fistula Upper Arm (Right) Arterial Sitting Heart Rate Pre-Dialysis 54 BPM Sitting H eart Rate Post-Dialysis 64 BPM Temperature Pre-Dialysis 98.2 degF Temperature Post -Dialysis 97.5 degF January 22, 2024 In-Center Hemodialysis Treatment 4405-45-66D33:31:00.000Z 1958-06-27I13:07:29.000Z BP Sitting (Pre-Dialysis) 133/58 mmHg BP Sitting (Post-Dialysis) 144/67 mmHg Concurrent Access: falseAV Fistula Upper Arm (Right) Arterial Sitting Heart Rate Pre-Dialysis 55 BPM Sitting H eart Rate Post-Dialysis 61 BPM Temperature Pre-Dialysis 97.7 degF Temperature Post -Dialysis 97.4 degF January 20, 2024 In-Center Hemodialysis Treatment 3422-19-84C46:29:19.000Z 8621-75-95G16:59:19.000Z BP Sitting (Pre-Dialysis) 150/69 mmHg BP Sitting (Post-Dialysis) 167/75 mmHg Concurrent Access: falseAV Fistula Upper Arm (Right) Arterial Sitting Heart Rate Pre-Dialysis 50 BPM Sitting H eart Rate Post-Dialysis 58 BPM Temperature Pre-Dialysis 98.2 degF Temperature Post -Dialysis 97.6 degF January 08, 2024 In-Center Hemodialysis Treatment 6866-11-95M02:14:01.000Z 1156-63-92B74:21:06.000Z BP Sitting (Pre-Dialysis) 158/77 mmHg BP Sitting (Post-Dialysis) 132/60 mmHg Concurrent Access: falseAV Fistula Upper Arm (Right) Arterial Sitting Heart Rate Pre-Dialysis 62 BPM Sitting H eart Rate Post-Dialysis 64 BPM Temperature Pre-Dialysis 98.1 degF Temperature Post -Dialysis 97.4 degF January 06, 2024 In-Center Hemodialysis Treatment 3181-23-20B27:54:24.000Z 1456-02-62R94:23:59.000Z BP Sitting (Pre-Dialysis) 174/74 mmHg BP Sitting (Post-Dialysis) 146/71 mmHg Concurrent Access: falseAV Fistula Upper Arm (Right) Arterial Sitting Heart Rate Pre-Dialysis 54 BPM Sitting H eart Rate Post-Dialysis 59 BPM Temperature Pre-Dialysis 97.6 degF Temperature Post -Dialysis 97.7 degF January 03, 2024 In-Center Hemodialysis Treatment 1950-71-04Z42:12:00.000Z 5755-74-80U89:29:55.000Z BP Sitting (Pre-Dialysis) 153/75 mmHg BP Sitting (Post-Dialysis) 143/66 mmHg Concurrent Access: falseAV Fistula Upper Arm (Right) Arterial Sitting Heart Rate Pre-Dialysis 64 BPM Sitting H eart Rate Post-Dialysis 60 BPM Temperature Pre-Dialysis 97.9 degF Temperature Post -Dialysis 98 degF January 01, 2024 In-Center Hemodialysis Treatment 1107-96-10V73:45:03.000Z 4217-28-50O93:14:38.000Z BP Sitting (Pre-Dialysis) 131/64 mmHg BP Sitting (Post-Dialysis) 134/58 mmHg Concurrent Access: falseAV Fistula Upper Arm (Right) Arterial Sitting Heart Rate Pre-Dialysis 61 BPM Sitting H eart Rate Post-Dialysis 57 BPM Temperature Pre-Dialysis 97.6 degF Temperature Post -Dialysis 97.3 degF December 30, 2023 In-Center Hemodialysis Treatment 9381-56-57U91:38:00.000Z 8572-04-12F25:08:47.000Z BP Sitting (Pre-Dialysis) 139/64 mmHg BP Sitting (Post-Dialysis) 102/53 mmHg Concurrent Access: falseAV Fistula Upper Arm (Right) Arterial Sitting Heart Rate Pre-Dialysis 50 BPM Sitting H eart Rate Post-Dialysis 48 BPM Temperature Pre-Dialysis 97.6 degF Temperature Post -Dialysis 97.1 degF December 27, 2023 In-Center Hemodialysis Treatment 4746-65-87I74:40:00.000Z 3284-59-74G10:11:28.000Z BP Sitting (Pre-Dialysis) 157/59 mmHg BP Sitting (Post-Dialysis) 132/56 mmHg Concurrent Access: falseAV Fistula Upper Arm (Right) Arterial Sitting Heart Rate Pre-Dialysis 69 BPM Sitting H eart Rate Post-Dialysis 48 BPM Temperature Pre-Dialysis 98.2 degF Temperature Post -Dialysis 98.3 degF December 25, 2023 In-Center Hemodialysis Treatment 5647-75-53Q12:42:06.000Z 2007-68-17O99:15:47.000Z BP Sitting (Pre-Dialysis) 144/81 mmHg BP Sitting (Post-Dialysis) 137/64 mmHg Concurrent Access: falseAV Fistula Upper Arm (Right) Arterial Sitting Heart Rate Pre-Dialysis 66 BPM Sitting H eart Rate Post-Dialysis 58 BPM Temperature Pre-Dialysis 97.5 degF Temperature Post -Dialysis 97.6 degF December 23, 2023 In-Center Hemodialysis Treatment 4612-26-22Q21:51:28.000Z 0003-78-61A87:08:58.000Z BP Sitting (Pre-Dialysis) 151/82 mmHg BP Sitting (Post-Dialysis) 142/78 mmHg Concurrent Access: falseAV Fistula Upper Arm (Right) Arterial Sitting Heart Rate Pre-Dialysis 61 BPM Sitting H eart Rate Post-Dialysis 59 BPM Temperature Pre-Dialysis 97.9 degF Temperature Post -Dialysis 97 degF December 20, 2023 In-Center Hemodialysis Treatment 3655-90-35O17:31:19.000Z 1560-83-45C45:07:59.000Z BP Sitting (Pre-Dialysis) 175/86 mmHg BP Sitting (Post-Dialysis) 166/58 mmHg Concurrent Access: falseAV Fistula Upper Arm (Right) Arterial Sitting Heart Rate Pre-Dialysis 76 BPM Sitting H eart Rate Post-Dialysis 60 BPM Temperature Pre-Dialysis 98.1 degF Temperature Post -Dialysis 97.1 degF December 18, 2023 In-Center Hemodialysis Treatment 0813-90-02O49:26:00.000Z 5430-55-71H58:26:35.000Z BP Sitting (Pre-Dialysis) 152/86 mmHg BP Sitting (Post-Dialysis) 151/75 mmHg Concurrent Access: falseAV Fistula Upper Arm (Right) Arterial Sitting Heart Rate Pre-Dialysis 64 BPM Sitting H eart Rate Post-Dialysis 63 BPM Temperature Pre-Dialysis 98.2 degF Temperature Post -Dialysis 97.3 degF December 16, 2023 In-Center Hemodialysis Treatment 7116-06-02B81:07:00.000Z 7528-52-02M85:13:24.000Z BP Sitting (Pre-Dialysis) 146/73 mmHg BP Sitting (Post-Dialysis) 135/61 mmHg Concurrent Access: falseAV Fistula Upper Arm (Right) Arterial Sitting Heart Rate Pre-Dialysis 60 BPM Sitting H eart Rate Post-Dialysis 83 BPM Temperature Pre-Dialysis 98.8 degF Temperature Post -Dialysis 97.2 degF December 13, 2023 In-Center Hemodialysis Treatment 6446-79-41T61:55:00.000Z 7090-99-87C34:45:00.000Z BP Sitting (Pre-Dialysis) 156/68 mmHg BP Sitting (Post-Dialysis) 150/76 mmHg Concurrent Access: falseAV Fistula Upper Arm (Right) Arterial Sitting Heart Rate Pre-Dialysis 62 BPM Sitting H eart Rate Post-Dialysis 60 BPM Temperature Pre-Dialysis 98.2 degF Temperature Post -Dialysis 98.4 degF December 11, 2023 In-Center Hemodialysis Treatment 2952-90-51X18:55:00.000Z 4693-86-37O02:21:52.000Z BP Sitting (Pre-Dialysis) 143/76 mmHg BP Sitting (Post-Dialysis) 138/69 mmHg Concurrent Access: falseAV Fistula Upper Arm (Right) Arterial Sitting Heart Rate Pre-Dialysis 60 BPM Sitting H eart Rate Post-Dialysis 64 BPM Temperature Pre-Dialysis 98 degF Temperature Post -Dialysis 98.1 degF December 09, 2023 In-Center Hemodialysis Treatment 0212-74-55I09:45:00.000Z 8599-55-31Y57:32:18.000Z BP Sitting (Pre-Dialysis) 153/81 mmHg BP Sitting (Post-Dialysis) 136/65 mmHg Concurrent Access: falseAV Fistula Upper Arm (Right) Arterial Sitting Heart Rate Pre-Dialysis 54 BPM Sitting H eart Rate Post-Dialysis 57 BPM Temperature Pre-Dialysis 97.1 degF Temperature Post -Dialysis 97.6 degF December 06, 2023 In-Center Hemodialysis Treatment 1287-61-78X71:43:53.000Z 9439-46-31O70:14:18.000Z BP Sitting (Pre-Dialysis) 142/72 mmHg BP Sitting (Post-Dialysis) 123/54 mmHg Concurrent Access: falseAV Fistula Upper Arm (Right) Arterial Sitting Heart Rate Pre-Dialysis 64 BPM Sitting H eart Rate Post-Dialysis 60 BPM Temperature Pre-Dialysis 98 degF Temperature Post -Dialysis 98.1 degF December 04, 2023 In-Center Hemodialysis Treatment 4947-22-62Q13:14:50.000Z 4836-57-10A78:23:35.000Z BP Sitting (Pre-Dialysis) 151/77 mmHg BP Sitting (Post-Dialysis) 121/62 mmHg Concurrent Access: falseAV Fistula Upper Arm (Right) Arterial Sitting Heart Rate Pre-Dialysis 50 BPM Sitting H eart Rate Post-Dialysis 58 BPM Temperature Pre-Dialysis 97.5 degF Temperature Post -Dialysis 98 degF November 27, 2023 In-Center Hemodialysis Treatment 7360-21-90M03:24:00.000Z 6276-07-80Z91:24:04.000Z BP Sitting (Pre-Dialysis) 127/64 mmHg BP Sitting (Post-Dialysis) 133/58 mmHg Concurrent Access: falseAV Fistula Upper Arm (Right) Arterial Sitting Heart Rate Pre-Dialysis 61 BPM Sitting H eart Rate Post-Dialysis 57 BPM Temperature Pre-Dialysis 97.5 degF Temperature Post -Dialysis 98 degF November 25, 2023 In-Center Hemodialysis Treatment 4445-89-67U34:58:39.000Z 4602-72-77Z19:28:39.000Z BP Sitting (Pre-Dialysis) 167/82 mmHg BP Sitting (Post-Dialysis) 130/75 mmHg Concurrent Access: falseAV Fistula Upper Arm (Right) Arterial Sitting Heart Rate Pre-Dialysis 75 BPM Sitting H eart Rate Post-Dialysis 82 BPM Temperature Pre-Dialysis 97.9 degF Temperature Post -Dialysis 98 degF November 22, 2023 In-Center Hemodialysis Treatment 4592-81-62D12:47:54.000Z 9142-56-54A69:24:34.000Z BP Sitting (Pre-Dialysis) 141/61 mmHg BP Sitting (Post-Dialysis) 135/66 mmHg Concurrent Access: falseAV Fistula Upper Arm (Right) Arterial Sitting Heart Rate Pre-Dialysis 65 BPM Sitting H eart Rate Post-Dialysis 67 BPM Temperature Pre-Dialysis 97.8 degF Temperature Post -Dialysis 97.9 degF November 20, 2023 In-Center Hemodialysis Treatment 1793-47-62X65:57:59.000Z 7530-61-57W74:27:59.000Z BP Sitting (Pre-Dialysis) 135/66 mmHg BP Sitting (Post-Dialysis) 144/68 mmHg Concurrent Access: falseAV Fistula Upper Arm (Right) Arterial Sitting Heart Rate Pre-Dialysis 60 BPM Sitting H eart Rate Post-Dialysis 62 BPM Temperature Pre-Dialysis 97.7 degF Temperature Post -Dialysis 97.2 degF November 18, 2023 In-Center Hemodialysis Treatment 8678-38-19F74:54:50.000Z 3667-89-41S47:24:50.000Z BP Sitting (Pre-Dialysis) 125/60 mmHg BP Sitting (Post-Dialysis) 129/67 mmHg Concurrent Access: falseAV Fistula Upper Arm (Right) Arterial Sitting Heart Rate Pre-Dialysis 52 BPM Sitting H eart Rate Post-Dialysis 60 BPM Temperature Pre-Dialysis 98 degF Temperature Post -Dialysis 97.6 degF November 15, 2023 In-Center Hemodialysis Treatment 3566-31-64R80:05:38.000Z 0133-60-67U83:17:18.000Z BP Sitting (Pre-Dialysis) 149/69 mmHg BP Sitting (Post-Dialysis) 143/71 mmHg Concurrent Access: falseAV Fistula Upper Arm (Right) Arterial Sitting Heart Rate Pre-Dialysis 66 BPM Sitting H eart Rate Post-Dialysis 62 BPM Temperature Pre-Dialysis 98 degF Temperature Post -Dialysis 97.7 degF November 13, 2023 In-Center Hemodialysis Treatment 6335-94-35A26:27:10.000Z 1206-99-72H59:17:10.000Z BP Sitting (Pre-Dialysis) 123/63 mmHg BP Sitting (Post-Dialysis) 132/64 mmHg Concurrent Access: falseAV Fistula Upper Arm (Right) Arterial Sitting Heart Rate Pre-Dialysis 69 BPM Sitting H eart Rate Post-Dialysis 61 BPM Temperature Pre-Dialysis 98.3 degF Temperature Post -Dialysis 97.6 degF November 11, 2023 In-Center Hemodialysis Treatment 6075-03-75T48:20:00.000Z 4603-33-28F31:28:47.000Z BP Sitting (Pre-Dialysis) 139/62 mmHg BP Sitting (Post-Dialysis) 110/53 mmHg Concurrent Access: falseAV Fistula Upper Arm (Right) Arterial Sitting Heart Rate Pre-Dialysis 55 BPM Sitting H eart Rate Post-Dialysis 62 BPM Temperature Pre-Dialysis 98 degF November 08, 2023 In-Center Hemodialysis Treatment 7035-20-29A73:44:00.000Z 7404-42-35U64:17:20.000Z BP Sitting (Pre-Dialysis) 143/67 mmHg BP Sitting (Post-Dialysis) 141/68 mmHg Concurrent Access: falseAV Fistula Upper Arm (Right) Arterial Sitting Heart Rate Pre-Dialysis 63 BPM Sitting H eart Rate Post-Dialysis 63 BPM Temperature Pre-Dialysis 97.1 degF Temperature Post -Dialysis 97 degF November 06, 2023 In-Center Hemodialysis Treatment 5307-96-58I38:03:00.000Z 1281-78-92V82:31:30.000Z BP Sitting (Pre-Dialysis) 129/58 mmHg BP Sitting (Post-Dialysis) 118/58 mmHg Concurrent Access: falseAV Fistula Upper Arm (Right) Arterial Sitting Heart Rate Pre-Dialysis 48 BPM Sitting H eart Rate Post-Dialysis 58 BPM Temperature Pre-Dialysis 97.4 degF Temperature Post -Dialysis 98.3 degF November 04, 2023 In-Center Hemodialysis Treatment 2404-98-55E09:34:49.000Z 4679-77-85M73:01:54.000Z BP Sitting (Pre-Dialysis) 155/79 mmHg BP Sitting (Post-Dialysis) 134/61 mmHg Concurrent Access: falseAV Fistula Upper Arm (Right) Arterial Sitting Heart Rate Pre-Dialysis 65 BPM Sitting H eart Rate Post-Dialysis 64 BPM Temperature Pre-Dialysis 98.2 degF Temperature Post -Dialysis 97.2 degF October 28, 2023 In-Center Hemodialysis Treatment 7117-99-51U70:19:00.000Z 6489-46-56E27:07:38.000Z BP Sitting (Pre-Dialysis) 166/78 mmHg BP Sitting (Post-Dialysis) 147/70 mmHg Concurrent Access: falseAV Fistula Upper Arm (Right) Arterial Sitting Heart Rate Pre-Dialysis 67 BPM Sitting H eart Rate Post-Dialysis 66 BPM Temperature Pre-Dialysis 97.7 degF Temperature Post -Dialysis 98 degF October 25, 2023 In-Center Hemodialysis Treatment 8926-26-89G18:26:46.000Z 9914-05-01H00:17:11.000Z BP Sitting (Pre-Dialysis) 154/69 mmHg BP Sitting (Post-Dialysis) 141/61 mmHg Concurrent Access: falseAV Fistula Upper Arm (Right) Arterial Sitting Heart Rate Pre-Dialysis 61 BPM Sitting H eart Rate Post-Dialysis 60 BPM Temperature Pre-Dialysis 98.2 degF Temperature Post -Dialysis 98 degF October 18, 2023 In-Center Hemodialysis Treatment 9572-07-97O51:38:00.000Z 2281-92-13M88:43:08.000Z BP Sitting (Pre-Dialysis) 145/70 mmHg BP Sitting (Post-Dialysis) 131/62 mmHg Concurrent Access: falseAV Fistula Upper Arm (Right) Arterial Sitting Heart Rate Pre-Dialysis 58 BPM Sitting H eart Rate Post-Dialysis 59 BPM Temperature Pre-Dialysis 97.3 degF Temperature Post -Dialysis 97.5 degF October 16, 2023 In-Center Hemodialysis Treatment 5757-82-76E32:45:00.000Z 5262-97-33D20:21:33.000Z BP Sitting (Pre-Dialysis) 130/63 mmHg BP Sitting (Post-Dialysis) 148/67 mmHg Concurrent Access: falseAV Fistula Upper Arm (Right) Arterial Sitting Heart Rate Pre-Dialysis 54 BPM Sitting H eart Rate Post-Dialysis 51 BPM Temperature Pre-Dialysis 97.7 degF Temperature Post -Dialysis 97.3 degF October 14, 2023 In-Center Hemodialysis Treatment 3188-28-45G13:48:03.000Z 1322-12-58Y73:18:28.000Z BP Sitting (Pre-Dialysis) 129/65 mmHg BP Sitting (Post-Dialysis) 143/62 mmHg Concurrent Access: falseAV Fistula Upper Arm (Right) Arterial Sitting Heart Rate Pre-Dialysis 61 BPM Sitting H eart Rate Post-Dialysis 50 BPM Temperature Pre-Dialysis 97.6 degF Temperature Post -Dialysis 97.2 degF October 11, 2023 In-Center Hemodialysis Treatment 8354-62-30N37:45:10.000Z 6304-24-93Q29:23:30.000Z BP Sitting (Pre-Dialysis) 134/62 mmHg BP Sitting (Post-Dialysis) 124/60 mmHg Concurrent Access: falseAV Fistula Upper Arm (Right) Arterial Sitting Heart Rate Pre-Dialysis 53 BPM Sitting H eart Rate Post-Dialysis 59 BPM Temperature Pre-Dialysis 97.7 degF Temperature Post -Dialysis 97.2 degF October 09, 2023 In-Center Hemodialysis Treatment 6608-96-76E04:39:00.000Z 0600-74-02M55:16:15.000Z BP Sitting (Pre-Dialysis) 140/66 mmHg BP Sitting (Post-Dialysis) 144/59 mmHg Concurrent Access: falseAV Fistula Upper Arm (Right) Arterial Sitting Heart Rate Pre-Dialysis 66 BPM Sitting H eart Rate Post-Dialysis 62 BPM Temperature Pre-Dialysis 98.4 degF Temperature Post -Dialysis 97.4 degF October 07, 2023 In-Center Hemodialysis Treatment 9108-32-82P74:54:09.000Z 0372-05-31R42:24:34.000Z BP Sitting (Pre-Dialysis) 141/66 mmHg BP Sitting (Post-Dialysis) 143/66 mmHg Concurrent Access: falseAV Fistula Upper Arm (Right) Arterial Sitting Heart Rate Pre-Dialysis 53 BPM Sitting H eart Rate Post-Dialysis 43 BPM Temperature Pre-Dialysis 97.2 degF Temperature Post -Dialysis 97.5 degF October 04, 2023 In-Center Hemodialysis Treatment 4016-31-34C41:07:00.000Z 3460-58-27C98:39:20.000Z BP Sitting (Pre-Dialysis) 151/71 mmHg BP Sitting (Post-Dialysis) 118/48 mmHg Concurrent Access: falseAV Fistula Upper Arm (Right) Arterial Sitting Heart Rate Pre-Dialysis 61 BPM Sitting H eart Rate Post-Dialysis 65 BPM Temperature Pre-Dialysis 98.1 degF Temperature Post -Dialysis 98.1 degF September 30, 2023 In-Center Hemodialysis Treatment 4957-05-34S05:48:14.000Z 0528-73-57Q72:20:44.000Z BP Sitting (Pre-Dialysis) 119/45 mmHg BP Sitting (Post-Dialysis) 160/66 mmHg Concurrent Access: falseAV Fistula Upper Arm (Right) Arterial Sitting Heart Rate Pre-Dialysis 56 BPM Sitting H eart Rate Post-Dialysis 59 BPM Temperature Pre-Dialysis 98.4 degF Temperature Post -Dialysis 98.1 degF September 27, 2023 In-Center Hemodialysis Treatment 5055-61-65A39:29:31.000Z 5654-74-34O13:00:21.000Z BP Sitting (Pre-Dialysis) 138/58 mmHg BP Sitting (Post-Dialysis) 130/60 mmHg Concurrent Access: falseAV Fistula Upper Arm (Right) Arterial Sitting Heart Rate Pre-Dialysis 64 BPM Sitting H eart Rate Post-Dialysis 58 BPM Temperature Pre-Dialysis 97.7 degF Temperature Post -Dialysis 97.3 degF September 25, 2023 In-Center Hemodialysis Treatment 6973-90-33E88:46:26.000Z 2602-68-94M10:16:51.000Z BP Sitting (Pre-Dialysis) 133/70 mmHg BP Sitting (Post-Dialysis) 135/62 mmHg Concurrent Access: falseAV Fistula Upper Arm (Right) Arterial Sitting Heart Rate Pre-Dialysis 56 BPM Sitting H eart Rate Post-Dialysis 54 BPM Temperature Pre-Dialysis 97.3 degF Temperature Post -Dialysis 97.9 degF September 16, 2023 In-Center Hemodialysis Treatment 1629-60-60U29:27:26.000Z 5599-46-86S64:57:26.000Z BP Sitting (Pre-Dialysis) 167/77 mmHg BP Sitting (Post-Dialysis) 182/84 mmHg Concurrent Access: falseAV Fistula Upper Arm (Right) Arterial Sitting Heart Rate Pre-Dialysis 66 BPM Sitting H eart Rate Post-Dialysis 53 BPM Temperature Pre-Dialysis 98.3 degF Temperature Post -Dialysis 97.3 degF September 13, 2023 In-Center Hemodialysis Treatment 7293-65-94N12:24:08.000Z 4984-12-64V95:54:33.000Z BP Sitting (Pre-Dialysis) 144/76 mmHg BP Sitting (Post-Dialysis) 145/66 mmHg Concurrent Access: falseAV Fistula Upper Arm (Right) Arterial Sitting Heart Rate Pre-Dialysis 66 BPM Sitting H eart Rate Post-Dialysis 59 BPM Temperature Pre-Dialysis 98 degF Temperature Post -Dialysis 97.3 degF September 11, 2023 In-Center Hemodialysis Treatment 0176-01-89F31:27:25.000Z 2734-39-97Z47:57:26.000Z BP Sitting (Pre-Dialysis) 147/70 mmHg BP Sitting (Post-Dialysis) 142/86 mmHg Concurrent Access: falseAV Fistula Upper Arm (Right) Arterial Sitting Heart Rate Pre-Dialysis 60 BPM Sitting H eart Rate Post-Dialysis 82 BPM Temperature Pre-Dialysis 97.4 degF Temperature Post -Dialysis 98.2 degF September 09, 2023 In-Center Hemodialysis Treatment 4313-09-95R76:31:00.000Z 2211-35-07J05:05:34.000Z BP Sitting (Pre-Dialysis) 158/76 mmHg BP Sitting (Post-Dialysis) 170/78 mmHg Concurrent Access: falseAV Fistula Upper Arm (Right) Arterial Sitting Heart Rate Pre-Dialysis 55 BPM Sitting H eart Rate Post-Dialysis 58 BPM Temperature Pre-Dialysis 97.3 degF Temperature Post -Dialysis 97.8 degF September 06, 2023 In-Center Hemodialysis Treatment 1296-44-55D75:50:10.000Z 0389-98-27Q74:17:40.000Z BP Sitting (Pre-Dialysis) 133/64 mmHg BP Sitting (Post-Dialysis) 105/50 mmHg Concurrent Access: falseAV Fistula Upper Arm (Right) Arterial Sitting Heart Rate Pre-Dialysis 46 BPM Sitting H eart Rate Post-Dialysis 59 BPM Temperature Pre-Dialysis 98 degF Temperature Post -Dialysis 98.2 degF September 04, 2023 In-Center Hemodialysis Treatment 7521-23-91R41:48:00.000Z 0268-35-14G82:20:21.000Z BP Sitting (Pre-Dialysis) 155/81 mmHg BP Sitting (Post-Dialysis) 152/70 mmHg Concurrent Access: falseAV Fistula Upper Arm (Right) Arterial Sitting Heart Rate Pre-Dialysis 54 BPM Sitting H eart Rate Post-Dialysis 67 BPM Temperature Pre-Dialysis 97.8 degF Temperature Post -Dialysis 97.7 degF September 01, 2023 In-Center Hemodialysis Treatment 8703-03-03Y11:43:00.000Z 8866-39-25Q62:16:54.000Z BP Sitting (Pre-Dialysis) 158/71 mmHg BP Sitting (Post-Dialysis) 159/78 mmHg Concurrent Access: falseAV Fistula Upper Arm (Right) Arterial Sitting Heart Rate Pre-Dialysis 60 BPM Sitting H eart Rate Post-Dialysis 60 BPM Temperature Pre-Dialysis 97.4 degF Temperature Post -Dialysis 97.8 degF August 28, 2023 In-Center Hemodialysis Treatment 3477-71-06O06:31:00.000Z 1255-46-87D16:05:56.000Z BP Sitting (Pre-Dialysis) 141/69 mmHg BP Sitting (Post-Dialysis) 127/59 mmHg Concurrent Access: falseAV Fistula Upper Arm (Right) Arterial Sitting Heart Rate Pre-Dialysis 58 BPM Sitting H eart Rate Post-Dialysis 53 BPM Temperature Pre-Dialysis 97.7 degF Temperature Post -Dialysis 97.3 degF August 25, 2023 In-Center Hemodialysis Treatment 1195-00-95C60:01:31.000Z 2002-72-20H84:34:51.000Z BP Sitting (Pre-Dialysis) 137/70 mmHg BP Sitting (Post-Dialysis) 124/64 mmHg Concurrent Access: falseAV Fistula Upper Arm (Right) Arterial Sitting Heart Rate Pre-Dialysis 70 BPM Sitting H eart Rate Post-Dialysis 67 BPM Temperature Pre-Dialysis 97.3 degF Temperature Post -Dialysis 98.4 degF August 23, 2023 In-Center Hemodialysis Treatment 6817-90-09N26:34:00.000Z 8610-44-79J09:04:49.000Z BP Sitting (Pre-Dialysis) 157/77 mmHg BP Sitting (Post-Dialysis) 131/63 mmHg Concurrent Access: falseAV Fistula Upper Arm (Right) Arterial Sitting Heart Rate Pre-Dialysis 68 BPM Sitting H eart Rate Post-Dialysis 65 BPM Temperature Pre-Dialysis 97.8 degF Temperature Post -Dialysis 98.6 degF August 21, 2023 In-Center Hemodialysis Treatment 6642-41-79H13:41:00.000Z 4026-75-80B27:12:16.000Z BP Sitting (Pre-Dialysis) 129/60 mmHg BP Sitting (Post-Dialysis) 154/73 mmHg Concurrent Access: falseAV Fistula Upper Arm (Right) Arterial Sitting Heart Rate Pre-Dialysis 53 BPM Sitting H eart Rate Post-Dialysis 68 BPM Temperature Pre-Dialysis 98.4 degF Temperature Post -Dialysis 98.2 degF August 19, 2023 In-Center Hemodialysis Treatment 9548-45-62N06:36:44.000Z 6455-99-79A50:55:04.000Z BP Sitting (Pre-Dialysis) 132/72 mmHg BP Sitting (Post-Dialysis) 145/72 mmHg Concurrent Access: falseAV Fistula Upper Arm (Right) Arterial Sitting Heart Rate Pre-Dialysis 69 BPM Sitting H eart Rate Post-Dialysis 63 BPM Temperature Pre-Dialysis 97.2 degF Temperature Post -Dialysis 97.6 degF August 14, 2023 In-Center Hemodialysis Treatment 2931-14-34L89:24:00.000Z 6656-26-19X87:55:47.000Z BP Sitting (Pre-Dialysis) 140/75 mmHg BP Sitting (Post-Dialysis) 130/69 mmHg Concurrent Access: falseAV Fistula Upper Arm (Right) Arterial Sitting Heart Rate Pre-Dialysis 55 BPM Sitting H eart Rate Post-Dialysis 66 BPM Temperature Pre-Dialysis 98.4 degF Temperature Post -Dialysis 97.8 degF August 12, 2023 In-Center Hemodialysis Treatment 7066-47-32E53:27:00.000Z 2978-50-26J51:58:14.000Z BP Sitting (Pre-Dialysis) 154/77 mmHg BP Sitting (Post-Dialysis) 156/92 mmHg Concurrent Access: falseAV Fistula Upper Arm (Right) Arterial Sitting Heart Rate Pre-Dialysis 63 BPM Sitting H eart Rate Post-Dialysis 61 BPM Temperature Pre-Dialysis 98.2 degF August 09, 2023 In-Center Hemodialysis Treatment 1725-18-25F40:24:21.000Z 3738-19-93N89:53:56.000Z BP Sitting (Pre-Dialysis) 128/64 mmHg BP Sitting (Post-Dialysis) 168/67 mmHg Concurrent Access: falseAV Fistula Upper Arm (Right) Arterial Sitting Heart Rate Pre-Dialysis 65 BPM Sitting H eart Rate Post-Dialysis 62 BPM Temperature Pre-Dialysis 98 degF Temperature Post -Dialysis 98.1 degF August 07, 2023 In-Center Hemodialysis Treatment 8011-89-15Y23:35:25.000Z 9272-77-94S06:05:25.000Z BP Sitting (Pre-Dialysis) 164/75 mmHg BP Sitting (Post-Dialysis) 170/75 mmHg Concurrent Access: falseAV Fistula Upper Arm (Right) Arterial Sitting Heart Rate Pre-Dialysis 62 BPM Sitting H eart Rate Post-Dialysis 65 BPM Temperature Pre-Dialysis 98.2 degF Temperature Post -Dialysis 98.2 degF August 05, 2023 In-Center Hemodialysis Treatment 9841-75-84K64:48:00.000Z 0784-35-21U57:19:21.000Z BP Sitting (Pre-Dialysis) 165/83 mmHg BP Sitting (Post-Dialysis) 166/82 mmHg Concurrent Access: falseAV Fistula Upper Arm (Right) Arterial Sitting Heart Rate Pre-Dialysis 62 BPM Sitting H eart Rate Post-Dialysis 64 BPM Temperature Pre-Dialysis 98.4 degF Temperature Post -Dialysis 97.2 degF August 02, 2023 In-Center Hemodialysis Treatment 3305-69-54C55:42:48.000Z 9203-70-47P79:12:23.000Z BP Sitting (Pre-Dialysis) 163/82 mmHg BP Sitting (Post-Dialysis) 162/67 mmHg Concurrent Access: falseAV Fistula Upper Arm (Right) Arterial Sitting Heart Rate Pre-Dialysis 60 BPM Sitting H eart Rate Post-Dialysis 60 BPM Temperature Pre-Dialysis 98.4 degF Temperature Post -Dialysis 98.4 degF July 31, 2023 In-Center Hemodialysis Treatment 9617-94-05X32:17:35.000Z 7184-13-48D33:47:35.000Z BP Sitting (Pre-Dialysis) 152/76 mmHg BP Sitting (Post-Dialysis) 158/73 mmHg Concurrent Access: falseAV Fistula Upper Arm (Right) Arterial Sitting Heart Rate Pre-Dialysis 67 BPM Sitting H eart Rate Post-Dialysis 59 BPM Temperature Pre-Dialysis 98.2 degF Temperature Post -Dialysis 97.9 degF July 29, 2023 In-Center Hemodialysis Treatment 3313-47-82O19:31:12.000Z 6404-14-58U72:00:47.000Z BP Sitting (Pre-Dialysis) 147/73 mmHg BP Sitting (Post-Dialysis) 161/79 mmHg Concurrent Access: falseAV Fistula Upper Arm (Right) Arterial Sitting Heart Rate Pre-Dialysis 71 BPM Sitting H eart Rate Post-Dialysis 56 BPM Temperature Pre-Dialysis 98.4 degF Temperature Post -Dialysis 97.4 degF July 26, 2023 In-Center Hemodialysis Treatment 0723-59-52I37:22:00.000Z 1467-43-78C05:16:40.000Z BP Sitting (Pre-Dialysis) 155/72 mmHg BP Sitting (Post-Dialysis) 145/73 mmHg Concurrent Access: falseAV Fistula Upper Arm (Right) Arterial Sitting Heart Rate Pre-Dialysis 79 BPM Sitting H eart Rate Post-Dialysis 65 BPM Temperature Pre-Dialysis 98 degF Temperature Post -Dialysis 97.2 degF July 23, 2023 In-Center Hemodialysis Treatment 2014-99-61P03:20:00.000Z 5481-77-27T56:15:54.000Z BP Sitting (Pre-Dialysis) 152/78 mmHg BP Sitting (Post-Dialysis) 121/55 mmHg Concurrent Access: falseAV Fistula Upper Arm (Right) Arterial Sitting Heart Rate Pre-Dialysis 58 BPM Sitting H eart Rate Post-Dialysis 70 BPM Temperature Pre-Dialysis 97.6 degF Temperature Post -Dialysis 97.7 degF July 21, 2023 In-Center Hemodialysis Treatment 400 mL/min 500 mL/min Concurrent Access: false July 19, 2023 In-Center Hemodialysis Treatment T1 6: 47 :0 0. 00 0Z T2 0: 03 :1 9. 00 0Z BP Sitting (Pre-Dial ysis) 160/85 mmHg BP Sitting (Post-Rosa lysis) 161/82 mmHg Concurrent Access: falseAV Fistula Upper Arm (Right) Arterial Sitting Heart Rate Pre-Dialysis 61 BPM Sitting H eart Rate Post-Dialysis 69 BPM Temperature Pre-Dialysis 98.5 degF Temperature Post -Dialysis 98.1 degF July 17, 2023 In-Center Hemodialysis Treatment 8544-82-57N71:36:48.000Z 7705-21-92J80:21:23.000Z BP Sitting (Pre-Dialysis) 178/89 mmHg BP Sitting (Post-Dialysis) 182/84 mmHg Concurrent Access: falseAV Fistula Upper Arm (Right) Arterial Sitting Heart Rate Pre-Dialysis 59 BPM Sitting H eart Rate Post-Dialysis 64 BPM Temperature Pre-Dialysis 98.1 degF Temperature Post -Dialysis 98.2 degF July 15, 2023 In-Center Hemodialysis Treatment 3640-28-08Q81:47:35.000Z 5856-30-53R24:17:35.000Z BP Sitting (Pre-Dialysis) 177/78 mmHg BP Sitting (Post-Dialysis) 191/82 mmHg Concurrent Access: falseAV Fistula Upper Arm (Right) Arterial Sitting Heart Rate Pre-Dialysis 57 BPM Sitting H eart Rate Post-Dialysis 62 BPM Temperature Pre-Dialysis 98.2 degF Temperature Post -Dialysis 97.4 degF July 08, 2023 In-Center Hemodialysis Treatment 2343-22-76K24:24:00.000Z 7813-64-77I68:00:05.000Z BP Sitting (Pre-Dialysis) 138/69 mmHg BP Sitting (Post-Dialysis) 149/65 mmHg Concurrent Access: falseAV Fistula Upper Arm (Right) Arterial Sitting Heart Rate Pre-Dialysis 51 BPM Sitting H eart Rate Post-Dialysis 57 BPM Temperature Pre-Dialysis 98 degF Temperature Post -Dialysis 98 degF July 05, 2023 In-Center Hemodialysis Treatment 7150-12-39N12:35:25.000Z 8953-69-95F47:05:50.000Z BP Sitting (Pre-Dialysis) 147/67 mmHg BP Sitting (Post-Dialysis) 158/75 mmHg Concurrent Access: falseAV Fistula Upper Arm (Right) Arterial Sitting Heart Rate Pre-Dialysis 51 BPM Sitting H eart Rate Post-Dialysis 49 BPM Temperature Pre-Dialysis 98.6 degF Temperature Post -Dialysis 97.6 degF July 01, 2023 In-Center Hemodialysis Treatment 8907-35-13E65:49:00.000Z 2531-94-43B59:19:00.000Z BP Sitting (Pre-Dialysis) 166/67 mmHg BP Sitting (Post-Dialysis) 144/65 mmHg Concurrent Access: falseAV Fistula Upper Arm (Right) Arterial Sitting Heart Rate Pre-Dialysis 61 BPM Sitting H eart Rate Post-Dialysis 64 BPM Temperature Pre-Dialysis 98.3 degF Temperature Post -Dialysis 98.1 degF June 28, 2023 In-Center Hemodialysis Treatment 5779-84-47E80:53:27.000Z 3791-31-51B77:27:12.000Z BP Sitting (Pre-Dialysis) 147/72 mmHg BP Sitting (Post-Dialysis) 144/76 mmHg Concurrent Access: falseAV Fistula Upper Arm (Right) Arterial Sitting Heart Rate Pre-Dialysis 65 BPM Sitting H eart Rate Post-Dialysis 64 BPM Temperature Pre-Dialysis 97.6 degF Temperature Post -Dialysis 97.2 degF June 24, 2023 In-Center Hemodialysis Treatment 5093-76-95E84:08:00.000Z 2076-33-94N45:48:02.000Z BP Sitting (Pre-Dialysis) 153/81 mmHg BP Sitting (Post-Dialysis) 183/46 mmHg Concurrent Access: falseAV Fistula Upper Arm (Right) Arterial Sitting Heart Rate Pre-Dialysis 66 BPM Sitting H eart Rate Post-Dialysis 60 BPM Temperature Pre-Dialysis 97.5 degF Temperature Post -Dialysis 98.3 degF June 21, 2023 In-Center Hemodialysis Treatment 2546-72-08D27:36:19.000Z 0521-07-31N30:06:44.000Z BP Sitting (Pre-Dialysis) 139/75 mmHg BP Sitting (Post-Dialysis) 158/71 mmHg Concurrent Access: falseAV Fistula Upper Arm (Right) Arterial Sitting Heart Rate Pre-Dialysis 75 BPM Sitting H eart Rate Post-Dialysis 63 BPM Temperature Pre-Dialysis 97.2 degF Temperature Post -Dialysis 98.4 degF June 17, 2023 In-Center Hemodialysis Treatment 6558-38-73Y38:24:00.000Z 9858-94-90H91:53:57.000Z BP Sitting (Pre-Dialysis) 149/61 mmHg BP Sitting (Post-Dialysis) 143/67 mmHg Concurrent Access: falseAV Fistula Upper Arm (Right) Arterial Sitting Heart Rate Pre-Dialysis 61 BPM Sitting H eart Rate Post-Dialysis 71 BPM Temperature Pre-Dialysis 98.2 degF Temperature Post -Dialysis 97.8 degF June 14, 2023 In-Center Hemodialysis Treatment 0705-93-33E60:32:20.000Z 1416-70-46P30:02:20.000Z BP Sitting (Pre-Dialysis) 135/73 mmHg BP Sitting (Post-Dialysis) 128/72 mmHg Concurrent Access: falseAV Fistula Upper Arm (Right) Arterial Sitting Heart Rate Pre-Dialysis 75 BPM Sitting H eart Rate Post-Dialysis 59 BPM Temperature Pre-Dialysis 97.6 degF Temperature Post -Dialysis 96.3 degF June 12, 2023 In-Center Hemodialysis Treatment 2804-97-34J51:27:36.000Z 8645-96-07W06:01:22.000Z BP Sitting (Pre-Dialysis) 135/64 mmHg BP Sitting (Post-Dialysis) 141/80 mmHg Concurrent Access: falseAV Fistula Upper Arm (Right) Arterial Sitting Heart Rate Pre-Dialysis 56 BPM Sitting H eart Rate Post-Dialysis 64 BPM Temperature Pre-Dialysis 98.1 degF Temperature Post -Dialysis 98 degF June 10, 2023 In-Center Hemodialysis Treatment 3174-58-01R96:35:00.000Z 7858-97-72F69:07:23.000Z BP Sitting (Pre-Dialysis) 145/62 mmHg BP Sitting (Post-Dialysis) 132/69 mmHg Concurrent Access: falseAV Fistula Upper Arm (Right) Arterial Sitting Heart Rate Pre-Dialysis 61 BPM Sitting H eart Rate Post-Dialysis 62 BPM Temperature Pre-Dialysis 98.2 degF Temperature Post -Dialysis 97.2 degF June 07, 2023 In-Center Hemodialysis Treatment 4440-70-01R03:31:23.000Z 0317-45-67T98:07:38.000Z BP Sitting (Pre-Dialysis) 174/78 mmHg BP Sitting (Post-Dialysis) 154/60 mmHg Concurrent Access: falseAV Fistula Upper Arm (Right) Arterial Sitting Heart Rate Pre-Dialysis 54 BPM Sitting H eart Rate Post-Dialysis 54 BPM Temperature Pre-Dialysis 97.8 degF Temperature Post -Dialysis 98.4 degF June 05, 2023 In-Center Hemodialysis Treatment 400 mL/min 500 mL/min Concurrent Access: false June 03, 2023 In-Center Hemodialysis Treatment 0- 02 T1 5: 46 :2 6. 00 0Z 0- 02 T1 9: 21 :0 1. 00 0Z BP Sitting (Pre-Dial ysis) 148/73 mmHg BP Sitting (Post-Rosa lysis) 153/63 mmHg Concurrent Access: falseAV Fistula Upper Arm (Right) Arterial Sitting Heart Rate Pre-Dialysis 63 BPM Sitting H eart Rate Post-Dialysis 57 BPM Temperature Pre-Dialysis 98 degF Temperature Post -Dialysis 97.6 degF May 31, 2023 In-Center Hemodialysis Treatment 8056-08-43P37:27:59.000Z 0374-31-89G04:58:49.000Z BP Sitting (Pre-Dialysis) 165/89 mmHg BP Sitting (Post-Dialysis) 122/60 mmHg Concurrent Access: falseAV Fistula Upper Arm (Right) Arterial Sitting Heart Rate Pre-Dialysis 77 BPM Sitting H eart Rate Post-Dialysis 67 BPM Temperature Pre-Dialysis 98 degF Temperature Post -Dialysis 97.8 degF May 29, 2023 In-Center Hemodialysis Treatment [id number]:35:16.000Z 7794-76-45U13:04:51.000Z BP Sitting (Pre-Dialysis) 141/66 mmHg BP Sitting (Post-Dialysis) 128/63 mmHg Concurrent Access: falseAV Fistula Upper Arm (Right) Arterial Sitting Heart Rate Pre-Dialysis 70 BPM Sitting H eart Rate Post-Dialysis 68 BPM Temperature Pre-Dialysis 98.2 degF Temperature Post -Dialysis 96.8 degF May 27, 2023 In-Center Hemodialysis Treatment 1198-56-52O07:05:00.000Z 2571-73-81T09:16:50.000Z BP Sitting (Pre-Dialysis) 138/70 mmHg BP Sitting (Post-Dialysis) 122/54 mmHg Concurrent Access: falseAV Fistula Upper Arm (Right) Arterial Sitting Heart Rate Pre-Dialysis 64 BPM Sitting H eart Rate Post-Dialysis 68 BPM Temperature Pre-Dialysis 97.2 degF Temperature Post -Dialysis 98.3 degF May 24, 2023 In-Center Hemodialysis Treatment 5300-43-03V90:52:20.000Z 0847-15-74D96:13:10.000Z BP Sitting (Pre-Dialysis) 143/67 mmHg BP Sitting (Post-Dialysis) 127/54 mmHg Concurrent Access: falseAV Fistula Upper Arm (Right) Arterial Sitting Heart Rate Pre-Dialysis 73 BPM Sitting H eart Rate Post-Dialysis 66 BPM Temperature Pre-Dialysis 97.8 degF Temperature Post -Dialysis 98.4 degF May 22, 2023 In-Center Hemodialysis Treatment 8787-57-57D16:38:08.000Z 1576-51-91J41:08:58.000Z BP Sitting (Pre-Dialysis) 130/61 mmHg BP Sitting (Post-Dialysis) 129/56 mmHg Concurrent Access: falseAV Fistula Upper Arm (Right) Arterial Sitting Heart Rate Pre-Dialysis 75 BPM Sitting H eart Rate Post-Dialysis 68 BPM Temperature Pre-Dialysis 98 degF Temperature Post -Dialysis 98 degF May 20, 2023 In-Center Hemodialysis Treatment 8279-12-62E09:32:00.000Z 5728-68-17T97:07:48.000Z BP Sitting (Pre-Dialysis) 172/73 mmHg BP Sitting (Post-Dialysis) 149/71 mmHg Concurrent Access: falseAV Fistula Upper Arm (Right) Arterial Sitting Heart Rate Pre-Dialysis 70 BPM Sitting H eart Rate Post-Dialysis 66 BPM Temperature Pre-Dialysis 97.3 degF Temperature Post -Dialysis 97.3 degF May 17, 2023 In-Center Hemodialysis Treatment 8692-63-79D31:49:23.000Z 2386-12-88E68:16:03.000Z BP Sitting (Pre-Dialysis) 157/72 mmHg BP Sitting (Post-Dialysis) 96/57 mmHg Concurrent Access: falseAV Fistula Upper Arm (Right) Arterial Sitting Heart Rate Pre-Dialysis 78 BPM Sitting H eart Rate Post-Dialysis 74 BPM Temperature Pre-Dialysis 98.2 degF Temperature Post -Dialysis 98.2 degF May 15, 2023 In-Center Hemodialysis Treatment [id number]:42:29.000Z 9337-71-35A97:12:23.000Z BP Sitting (Pre-Dialysis) 147/67 mmHg BP Sitting (Post-Dialysis) 115/64 mmHg Concurrent Access: falseAV Fistula Upper Arm (Right) Arterial Sitting Heart Rate Pre-Dialysis 74 BPM Sitting H eart Rate Post-Dialysis 70 BPM Temperature Pre-Dialysis 97.6 degF Temperature Post -Dialysis 97.8 degF May 13, 2023 In-Center Hemodialysis Treatment 4783-32-12B90:13:50.000Z 6119-13-53R73:31:45.000Z BP Sitting (Pre-Dialysis) 123/66 mmHg BP Sitting (Post-Dialysis) 118/66 mmHg Concurrent Access: falseAV Fistula Upper Arm (Right) Arterial Sitting Heart Rate Pre-Dialysis 70 BPM Sitting H eart Rate Post-Dialysis 71 BPM Temperature Pre-Dialysis 97.6 degF Temperature Post -Dialysis 97.6 degF 2023 In-Center Hemodialysis Treatment 9098-64-47O50:34:00.000Z 0213-91-54W66:07:21.000Z BP Sitting (Pre-Dialysis) 118/59 mmHg BP Sitting (Post-Dialysis) 122/63 mmHg Concurrent Access: falseAV Fistula Upper Arm (Right) Arterial Sitting Heart Rate Pre-Dialysis 73 BPM Sitting H eart Rate Post-Dialysis 71 BPM Temperature Pre-Dialysis 97.9 degF Temperature Post -Dialysis 97.3 degF May 08, 2023 In-Center Hemodialysis Treatment 4939-11-77J75:10:00.000Z 7562-91-41S62:44:31.000Z BP Sitting (Pre-Dialysis) 104/54 mmHg BP Sitting (Post-Dialysis) 114/52 mmHg Concurrent Access: falseAV Fistula Upper Arm (Right) Arterial Sitting Heart Rate Pre-Dialysis 65 BPM Sitting H eart Rate Post-Dialysis 77 BPM Temperature Pre-Dialysis 98.1 degF Temperature Post -Dialysis 97.2 degF May 06, 2023 In-Center Hemodialysis Treatment 1126-94-46Z12:41:00.000Z 8151-22-55Q37:24:46.000Z BP Sitting (Pre-Dialysis) 88/49 mmHg BP Sitting (Post-Dialysis) 128/57 mmHg Concurrent Access: falseAV Fistula Upper Arm (Right) Arterial Sitting Heart Rate Pre-Dialysis 93 BPM Sitting H eart Rate Post-Dialysis 72 BPM Temperature Pre-Dialysis 97.1 degF Temperature Post -Dialysis 97.1 degF May 03, 2023 In-Center Hemodialysis Treatment 1703-75-36N68:37:00.000Z 9148-28-16D45:14:01.000Z BP Sitting (Pre-Dialysis) 98/51 mmHg BP Sitting (Post-Dialysis) 103/55 mmHg Concurrent Access: falseAV Fistula Upper Arm (Right) Arterial Sitting Heart Rate Pre-Dialysis 80 BPM Sitting H eart Rate Post-Dialysis 67 BPM Temperature Pre-Dialysis 97.8 degF Temperature Post -Dialysis 96.9 degF May 01, 2023 In-Center Hemodialysis Treatment 9608-64-19G03:29:00.000Z 8162-78-44A50:01:54.000Z BP Sitting (Pre-Dialysis) 90/46 mmHg BP Sitting (Post-Dialysis) 105/56 mmHg Concurrent Access: falseAV Fistula Upper Arm (Right) Arterial Sitting Heart Rate Pre-Dialysis 67 BPM Sitting H eart Rate Post-Dialysis 63 BPM Temperature Pre-Dialysis 97.6 degF Temperature Post -Dialysis 97.2 degF February 14, 2023 In-Center Hemodialysis Treatment 8404-02-20T28:30:30.000Z 6330-77-43E98:00:30.000Z BP Sitting (Pre-Dialysis) 155/74 mmHg BP Sitting (Post-Dialysis) 162/75 mmHg Concurrent Access: falseAV Fistula Upper Arm (Right) Arterial Sitting Heart Rate Pre-Dialysis 71 BPM Sitting H eart Rate Post-Dialysis 65 BPM Temperature Pre-Dialysis 97.3 degF Temperature Post -Dialysis 97.6 degF February 12, 2023 In-Center Hemodialysis Treatment 7757-94-43M90:51:00.000Z 8562-71-47B16:22:51.000Z BP Sitting (Pre-Dialysis) 149/74 mmHg BP Sitting (Post-Dialysis) 137/66 mmHg Concurrent Access: falseAV Fistula Upper Arm (Right) Arterial Sitting Heart Rate Pre-Dialysis 69 BPM Sitting H eart Rate Post-Dialysis 65 BPM Temperature Pre-Dialysis 98 degF Temperature Post -Dialysis 96.8 degF February 02, 2023 In-Center Hemodialysis Treatment 1675-36-94W72:45:23.000Z 9719-57-33N61:48:43.000Z BP Sitting (Pre-Dialysis) 151/84 mmHg BP Sitting (Post-Dialysis) 153/82 mmHg Concurrent Access: falseAV Fistula Upper Arm (Right) Arterial Sitting Heart Rate Pre-Dialysis 70 BPM Sitting H eart Rate Post-Dialysis 70 BPM Temperature Pre-Dialysis 98.2 degF Temperature Post -Dialysis 97.4 degF January 31, 2023 In-Center Hemodialysis Treatment 7105-45-84N55:28:43.000Z 9115-14-64Y62:52:53.000Z BP Sitting (Pre-Dialysis) 165/68 mmHg BP Sitting (Post-Dialysis) 149/74 mmHg Concurrent Access: falseAV Fistula Upper Arm (Right) Arterial Sitting Heart Rate Pre-Dialysis 61 BPM Sitting H eart Rate Post-Dialysis 66 BPM Temperature Pre-Dialysis 97.2 degF Temperature Post -Dialysis 97.6 degF January 29, 2023 In-Center Hemodialysis Treatment BP Sitting (Pre-Dialysis) 120/65 mmHg 400 mL/min 500 mL/min Concurrent Access: falseAV Fistula Upper Arm (Right) Arterial Sitting Heart Rate Pre-Dialysis 74 BPM Temperature Pre-Dialysis 97.4 degF January 26, 2023 In-Center Hemodialysis Treatment 3529-78-87Q77:48:04.000Z 1391-63-88T74:18:54.000Z BP Sitting (Pre-Dialysis) 132/67 mmHg BP Sitting (Post-Dialysis) 136/67 mmHg Concurrent Access: falseAV Fistula Upper Arm (Right) Arterial Sitting Heart Rate Pre-Dialysis 66 BPM Sitting H eart Rate Post-Dialysis 58 BPM Temperature Pre-Dialysis 97.6 degF Temperature Post -Dialysis 97.6 degF January 24, 2023 In-Center Hemodialysis Treatment 1146-62-94F37:40:50.000Z 3824-02-15P37:10:25.000Z BP Sitting (Pre-Dialysis) 126/59 mmHg BP Sitting (Post-Dialysis) 145/65 mmHg Concurrent Access: falseAV Fistula Upper Arm (Right) Arterial Sitting Heart Rate Pre-Dialysis 69 BPM Sitting H eart Rate Post-Dialysis 62 BPM Temperature Pre-Dialysis 97.6 degF Temperature Post -Dialysis 97.8 degF January 22, 2023 In-Center Hemodialysis Treatment 0762-97-92M52:44:00.000Z 4054-43-60I92:15:11.000Z BP Sitting (Pre-Dialysis) 143/72 mmHg BP Sitting (Post-Dialysis) 142/66 mmHg Concurrent Access: falseAV Fistula Upper Arm (Right) Arterial Sitting Heart Rate Pre-Dialysis 72 BPM Sitting H eart Rate Post-Dialysis 65 BPM Temperature Pre-Dialysis 98.2 degF Temperature Post -Dialysis 98.1 degF January 19, 2023 In-Center Hemodialysis Treatment 7824-73-08R00:10:55.000Z 9703-75-32B35:14:40.000Z BP Sitting (Pre-Dialysis) 126/65 mmHg BP Sitting (Post-Dialysis) 127/56 mmHg Concurrent Access: falseAV Fistula Upper Arm (Right) Arterial Sitting Heart Rate Pre-Dialysis 66 BPM Sitting H eart Rate Post-Dialysis 60 BPM Temperature Pre-Dialysis 97.7 degF Temperature Post -Dialysis 97.6 degF January 18, 2023 In-Center Hemodialysis Treatment 2753-62-30O51:31:00.000Z 4570-12-43E76:00:17.000Z BP Sitting (Pre-Dialysis) 135/64 mmHg BP Sitting (Post-Dialysis) 166/80 mmHg Concurrent Access: falseAV Fistula Upper Arm (Right) Arterial Sitting Heart Rate Pre-Dialysis 56 BPM Sitting H eart Rate Post-Dialysis 73 BPM Temperature Pre-Dialysis 98 degF Temperature Post -Dialysis 97.6 degF January 17, 2023 In-Center Hemodialysis Treatment 400 mL/min 500 mL/min Concurrent Access: false January 10, 2023 In-Center Hemodialysis Treatment 20 23 -0 5- 11 T1 2: 40 :3 3. 00 0Z 20 23 -0 5- 11 T1 6: 22 :3 8. 00 0Z BP Sitting (Pre-Dial ysis) 147/68 mmHg BP Sitting (Post-Rosa lysis) 151/72 mmHg Concurrent Access: falseAV Fistula Upper Arm (Right) Arterial Sitting Heart Rate Pre-Dialysis 60 BPM Sitting H eart Rate Post-Dialysis 73 BPM Temperature Pre-Dialysis 97.6 degF Temperature Post -Dialysis 97.1 degF January 08, 2023 In-Center Hemodialysis Treatment 8681-27-21S41:40:58.000Z 6562-23-00D68:05:33.000Z BP Sitting (Pre-Dialysis) 162/63 mmHg BP Sitting (Post-Dialysis) 179/91 mmHg Concurrent Access: falseAV Fistula Upper Arm (Right) Arterial Sitting Heart Rate Pre-Dialysis 50 BPM Sitting H eart Rate Post-Dialysis 72 BPM Temperature Pre-Dialysis 97.6 degF Temperature Post -Dialysis 97.5 degF January 03, 2023 In-Center Hemodialysis Treatment 7003-87-39D28:18:34.000Z 7176-58-55I72:32:44.000Z BP Sitting (Pre-Dialysis) 115/62 mmHg BP Sitting (Post-Dialysis) 143/69 mmHg Concurrent Access: falseAV Fistula Upper Arm (Right) Arterial Sitting Heart Rate Pre-Dialysis 67 BPM Sitting H eart Rate Post-Dialysis 72 BPM Temperature Pre-Dialysis 97.2 degF Temperature Post -Dialysis 97.1 degF January 01, 2023 In-Center Hemodialysis Treatment 7634-07-85P53:39:26.000Z 7214-00-60Z70:09:26.000Z BP Sitting (Pre-Dialysis) 133/56 mmHg BP Sitting (Post-Dialysis) 126/62 mmHg Concurrent Access: falseAV Fistula Upper Arm (Right) Arterial Sitting Heart Rate Pre-Dialysis 63 BPM Sitting H eart Rate Post-Dialysis 81 BPM Temperature Pre-Dialysis 98.9 degF Temperature Post -Dialysis 97.6 degF December 03, 2022 In-Center Hemodialysis Treatment 3226-58-91R18:24:00.000Z 0173-25-71C81:55:09.000Z BP Sitting (Pre-Dialysis) 128/61 mmHg BP Sitting (Post-Dialysis) 139/64 mmHg Concurrent Access: falseAV Fistula Upper Arm (Right) Arterial Sitting Heart Rate Pre-Dialysis 58 BPM Sitting H eart Rate Post-Dialysis 72 BPM Temperature Pre-Dialysis 98.4 degF Temperature Post -Dialysis 97.6 degF November 29, 2022 In-Center Hemodialysis Treatment 7402-78-39A38:24:34.000Z 1664-50-14R85:04:09.000Z BP Sitting (Pre-Dialysis) 124/68 mmHg BP Sitting (Post-Dialysis) 125/56 mmHg Concurrent Access: falseAV Fistula Upper Arm (Right) Arterial Sitting Heart Rate Pre-Dialysis 62 BPM Sitting H eart Rate Post-Dialysis 63 BPM Temperature Pre-Dialysis 97.7 degF Temperature Post -Dialysis 97.3 degF November 27, 2022 In-Center Hemodialysis Treatment 9135-00-07Y07:35:00.000Z 5172-00-88Y93:56:27.000Z BP Sitting (Pre-Dialysis) 133/63 mmHg BP Sitting (Post-Dialysis) 154/66 mmHg Concurrent Access: falseAV Fistula Upper Arm (Right) Arterial Sitting Heart Rate Pre-Dialysis 60 BPM Sitting H eart Rate Post-Dialysis 60 BPM Temperature Pre-Dialysis 97.8 degF Temperature Post -Dialysis 97.1 degF November 24, 2022 In-Center Hemodialysis Treatment 5396-81-06Y82:22:45.000Z 6994-19-31O77:58:10.000Z BP Sitting (Pre-Dialysis) 124/61 mmHg BP Sitting (Post-Dialysis) 126/52 mmHg Concurrent Access: falseAV Fistula Upper Arm (Right) Arterial Sitting Heart Rate Pre-Dialysis 66 BPM Sitting H eart Rate Post-Dialysis 63 BPM Temperature Pre-Dialysis 97 degF Temperature Post -Dialysis 97.5 degF November 22, 2022 In-Center Hemodialysis Treatment 9242-37-38X25:27:50.000Z 7342-91-59V36:43:15.000Z BP Sitting (Pre-Dialysis) 107/57 mmHg BP Sitting (Post-Dialysis) 119/53 mmHg Concurrent Access: falseAV Fistula Upper Arm (Right) Arterial Sitting Heart Rate Pre-Dialysis 65 BPM Sitting H eart Rate Post-Dialysis 61 BPM Temperature Pre-Dialysis 97.9 degF Temperature Post -Dialysis 97.7 degF November 20, 2022 In-Center Hemodialysis Treatment 5067-65-04J82:32:53.000Z 5075-78-85O78:07:53.000Z BP Sitting (Pre-Dialysis) 127/60 mmHg BP Sitting (Post-Dialysis) 131/60 mmHg Concurrent Access: falseAV Fistula Upper Arm (Right) Arterial Sitting Heart Rate Pre-Dialysis 65 BPM Sitting H eart Rate Post-Dialysis 71 BPM Temperature Pre-Dialysis 97.3 degF Temperature Post -Dialysis 97.6 degF November 15, 2022 In-Center Hemodialysis Treatment [id number]:48:20.000Z 6044-24-83C24:18:00.000Z BP Sitting (Pre-Dialysis) 127/65 mmHg BP Sitting (Post-Dialysis) 148/69 mmHg Concurrent Access: falseAV Fistula Upper Arm (Right) Arterial Sitting Heart Rate Pre-Dialysis 70 BPM Sitting H eart Rate Post-Dialysis 69 BPM Temperature Pre-Dialysis 97.5 degF Temperature Post -Dialysis 97.9 degF November 13, 2022 In-Center Hemodialysis Treatment 4468-36-29N63:05:51.000Z 2787-31-49X23:33:00.000Z BP Sitting (Pre-Dialysis) 130/69 mmHg BP Sitting (Post-Dialysis) 150/63 mmHg Concurrent Access: falseAV Fistula Upper Arm (Right) Arterial Sitting Heart Rate Pre-Dialysis 65 BPM Sitting H eart Rate Post-Dialysis 62 BPM Temperature Pre-Dialysis 96.5 degF Temperature Post -Dialysis 97.3 degF November 10, 2022 In-Center Hemodialysis Treatment 6228-82-03Y39:29:00.000Z 2978-58-10L50:01:08.000Z BP Sitting (Pre-Dialysis) 129/69 mmHg BP Sitting (Post-Dialysis) 134/81 mmHg Concurrent Access: falseAV Fistula Upper Arm (Right) Arterial Sitting Heart Rate Pre-Dialysis 65 BPM Sitting H eart Rate Post-Dialysis 65 BPM Temperature Pre-Dialysis 97.2 degF Temperature Post -Dialysis 97.2 degF November 08, 2022 In-Center Hemodialysis Treatment 3602-50-35B15:06:08.000Z 0899-75-18T51:31:33.000Z BP Sitting (Pre-Dialysis) 130/71 mmHg BP Sitting (Post-Dialysis) 132/62 mmHg Concurrent Access: falseAV Fistula Upper Arm (Right) Arterial Sitting Heart Rate Pre-Dialysis 66 BPM Sitting H eart Rate Post-Dialysis 63 BPM Temperature Pre-Dialysis 97.8 degF Temperature Post -Dialysis 97.9 degF November 06, 2022 In-Center Hemodialysis Treatment 0707-35-90B59:56:03.000Z 4246-09-93Z06:26:03.000Z BP Sitting (Pre-Dialysis) 119/64 mmHg BP Sitting (Post-Dialysis) 130/68 mmHg Concurrent Access: falseAV Fistula Upper Arm (Right) Arterial Sitting Heart Rate Pre-Dialysis 67 BPM Sitting H eart Rate Post-Dialysis 59 BPM Temperature Pre-Dialysis 97.4 degF Temperature Post -Dialysis 96.8 degF November 03, 2022 In-Center Hemodialysis Treatment 1219-83-92K41:17:00.000Z 0927-14-43U76:13:00.000Z BP Sitting (Pre-Dialysis) 117/56 mmHg BP Sitting (Post-Dialysis) 116/54 mmHg Concurrent Access: falseAV Fistula Upper Arm (Right) Arterial Sitting Heart Rate Pre-Dialysis 62 BPM Sitting H eart Rate Post-Dialysis 57 BPM Temperature Pre-Dialysis 97.6 degF Temperature Post -Dialysis 97.6 degF November 01, 2022 In-Center Hemodialysis Treatment 4325-92-97Q28:06:06.000Z 7827-84-03P21:29:01.000Z BP Sitting (Pre-Dialysis) 142/71 mmHg BP Sitting (Post-Dialysis) 130/73 mmHg Concurrent Access: falseAV Fistula Upper Arm (Right) Arterial Sitting Heart Rate Pre-Dialysis 65 BPM Sitting H eart Rate Post-Dialysis 61 BPM Temperature Pre-Dialysis 97.7 degF Temperature Post -Dialysis 97.4 degF October 30, 2022 In-Center Hemodialysis Treatment 0585-27-53T43:38:00.000Z 8835-53-52N69:10:25.000Z BP Sitting (Pre-Dialysis) 145/75 mmHg BP Sitting (Post-Dialysis) 144/67 mmHg Concurrent Access: falseAV Fistula Upper Arm (Right) Arterial Sitting Heart Rate Pre-Dialysis 69 BPM Sitting H eart Rate Post-Dialysis 74 BPM Temperature Pre-Dialysis 97.7 degF Temperature Post -Dialysis 97.8 degF October 27, 2022 In-Center Hemodialysis Treatment 7020-97-10Z03:56:12.000Z 8490-23-46H96:26:22.000Z BP Sitting (Pre-Dialysis) 137/70 mmHg BP Sitting (Post-Dialysis) 162/81 mmHg Concurrent Access: falseAV Fistula Upper Arm (Right) Arterial Sitting Heart Rate Pre-Dialysis 64 BPM Sitting H eart Rate Post-Dialysis 70 BPM Temperature Pre-Dialysis 97.9 degF Temperature Post -Dialysis 97.2 degF October 25, 2022 In-Center Hemodialysis Treatment 3473-91-95J22:15:00.000Z 1223-57-63Q43:44:45.000Z BP Sitting (Pre-Dialysis) 139/69 mmHg BP Sitting (Post-Dialysis) 151/78 mmHg Concurrent Access: falseAV Fistula Upper Arm (Right) Arterial Sitting Heart Rate Pre-Dialysis 69 BPM Sitting H eart Rate Post-Dialysis 67 BPM Temperature Pre-Dialysis 97.9 degF Temperature Post -Dialysis 97.2 degF October 23, 2022 In-Center Hemodialysis Treatment 4056-51-70G01:07:00.000Z 3100-99-26C74:32:16.000Z BP Sitting (Pre-Dialysis) 129/61 mmHg BP Sitting (Post-Dialysis) 148/55 mmHg Concurrent Access: falseAV Fistula Upper Arm (Right) Arterial Sitting Heart Rate Pre-Dialysis 65 BPM Sitting H eart Rate Post-Dialysis 61 BPM Temperature Pre-Dialysis 97.8 degF Temperature Post -Dialysis 97.9 degF October 20, 2022 In-Center Hemodialysis Treatment 2973-12-46S21:05:00.000Z 6408-75-40H46:35:01.000Z BP Sitting (Pre-Dialysis) 138/71 mmHg BP Sitting (Post-Dialysis) 145/77 mmHg Concurrent Access: falseAV Fistula Upper Arm (Right) Arterial Sitting Heart Rate Pre-Dialysis 68 BPM Sitting H eart Rate Post-Dialysis 75 BPM Temperature Pre-Dialysis 97.8 degF Temperature Post -Dialysis 97.9 degF October 16, 2022 In-Center Hemodialysis Treatment 3451-33-39H09:15:00.000Z 3829-38-53A08:42:23.000Z BP Sitting (Pre-Dialysis) 120/57 mmHg BP Sitting (Post-Dialysis) 140/72 mmHg Concurrent Access: falseAV Fistula Upper Arm (Right) Arterial Sitting Heart Rate Pre-Dialysis 65 BPM Sitting H eart Rate Post-Dialysis 66 BPM Temperature Pre-Dialysis 98 degF Temperature Post -Dialysis 97.8 degF October 13, 2022 In-Center Hemodialysis Treatment 8997-05-51M20:45:00.000Z 9100-59-71A22:16:14.000Z BP Sitting (Pre-Dialysis) 123/59 mmHg BP Sitting (Post-Dialysis) 136/68 mmHg Concurrent Access: falseAV Fistula Upper Arm (Right) Arterial Sitting Heart Rate Pre-Dialysis 65 BPM Sitting H eart Rate Post-Dialysis 60 BPM Temperature Pre-Dialysis 97.3 degF Temperature Post -Dialysis 97.6 degF October 11, 2022 In-Center Hemodialysis Treatment 4557-65-46M11:28:00.000Z 5420-19-39V19:32:00.000Z BP Sitting (Pre-Dialysis) 132/65 mmHg BP Sitting (Post-Dialysis) 140/58 mmHg Concurrent Access: falseAV Fistula Upper Arm (Right) Arterial Sitting Heart Rate Pre-Dialysis 68 BPM Sitting H eart Rate Post-Dialysis 64 BPM Temperature Pre-Dialysis 97.8 degF Temperature Post -Dialysis 97.7 degF October 09, 2022 In-Center Hemodialysis Treatment [id number]:30:00.000Z 3925-29-00T00:03:57.000Z BP Sitting (Pre-Dialysis) 126/67 mmHg BP Sitting (Post-Dialysis) 141/66 mmHg Concurrent Access: falseAV Fistula Upper Arm (Right) Arterial Sitting Heart Rate Pre-Dialysis 65 BPM Sitting H eart Rate Post-Dialysis 59 BPM Temperature Pre-Dialysis 97.8 degF Temperature Post -Dialysis 97.4 degF October 06, 2022 In-Center Hemodialysis Treatment [id number]:07:00.000Z [id number]:33:23.000Z BP Sitting (Pre-Dialysis) 117/52 mmHg BP Sitting (Post-Dialysis) 136/68 mmHg Concurrent Access: falseAV Fistula Upper Arm (Right) Arterial Sitting Heart Rate Pre-Dialysis 63 BPM Sitting H eart Rate Post-Dialysis 62 BPM Temperature Pre-Dialysis 97.2 degF Temperature Post -Dialysis 97.8 degF October 04, 2022 In-Center Hemodialysis Treatment [id number]:22:53.000Z [id number]:53:43.000Z BP Sitting (Pre-Dialysis) 134/78 mmHg BP Sitting (Post-Dialysis) 110/54 mmHg Concurrent Access: falseAV Fistula Upper Arm (Right) Arterial Sitting Heart Rate Pre-Dialysis 10 BPM Sitting H eart Rate Post-Dialysis 59 BPM Temperature Pre-Dialysis 97.5 degF Temperature Post -Dialysis 97.6 degF October 02, 2022 In-Center Hemodialysis Treatment [id number]:15:00.000Z [id number]:33:04.000Z BP Sitting (Pre-Dialysis) 119/62 mmHg BP Sitting (Post-Dialysis) 143/73 mmHg Concurrent Access: falseAV Fistula Upper Arm (Right) Arterial Sitting Heart Rate Pre-Dialysis 60 BPM Sitting H eart Rate Post-Dialysis 60 BPM Temperature Pre-Dialysis 97.9 degF Temperature Post -Dialysis 97.7 degF September 29, 2022 In-Center Hemodialysis Treatment [id number]:04:00.000Z [id number]:36:24.000Z BP Sitting (Pre-Dialysis) 133/63 mmHg BP Sitting (Post-Dialysis) 163/74 mmHg Concurrent Access: falseAV Fistula Upper Arm (Right) Arterial Sitting Heart Rate Pre-Dialysis 64 BPM Sitting H eart Rate Post-Dialysis 59 BPM Temperature Pre-Dialysis 97.5 degF Temperature Post -Dialysis 96.7 degF September 27, 2022 In-Center Hemodialysis Treatment [id number]:51:38.000Z [id number]:24:08.000Z BP Sitting (Pre-Dialysis) 113/60 mmHg BP Sitting (Post-Dialysis) 109/57 mmHg Concurrent Access: falseAV Fistula Upper Arm (Right) Arterial Sitting Heart Rate Pre-Dialysis 78 BPM Sitting H eart Rate Post-Dialysis 61 BPM Temperature Pre-Dialysis 97.4 degF Temperature Post -Dialysis 97.3 degF September 25, 2022 In-Center Hemodialysis Treatment [id number]:02:37.000Z [id number]:35:57.000Z BP Sitting (Pre-Dialysis) 105/48 mmHg BP Sitting (Post-Dialysis) 134/62 mmHg Concurrent Access: falseAV Fistula Upper Arm (Right) Arterial Sitting Heart Rate Pre-Dialysis 58 BPM Sitting H eart Rate Post-Dialysis 66 BPM Temperature Pre-Dialysis 98.1 degF Temperature Post -Dialysis 97.2 degF September 22, 2022 In-Center Hemodialysis Treatment [id number]:00:00.000Z [id number]:32:07.000Z BP Sitting (Pre-Dialysis) 133/66 mmHg BP Sitting (Post-Dialysis) 159/81 mmHg Concurrent Access: falseAV Fistula Upper Arm (Right) Arterial Sitting Heart Rate Pre-Dialysis 66 BPM Sitting H eart Rate Post-Dialysis 73 BPM Temperature Pre-Dialysis 97.4 degF Temperature Post -Dialysis 97.8 degF September 20, 2022 In-Center Hemodialysis Treatment [id number]:02:57.000Z [id number]:35:11.000Z BP Sitting (Pre-Dialysis) 145/70 mmHg BP Sitting (Post-Dialysis) 144/71 mmHg Concurrent Access: falseAV Fistula Upper Arm (Right) Arterial Sitting Heart Rate Pre-Dialysis 64 BPM Sitting H eart Rate Post-Dialysis 63 BPM Temperature Pre-Dialysis 97.6 degF Temperature Post -Dialysis 97.8 degF September 18, 2022 In-Center Hemodialysis Treatment [id number]:50:00.000Z [id number]:23:20.000Z BP Sitting (Pre-Dialysis) 126/65 mmHg BP Sitting (Post-Dialysis) 133/66 mmHg Concurrent Access: falseAV Fistula Upper Arm (Right) Arterial Sitting Heart Rate Pre-Dialysis 66 BPM Sitting H eart Rate Post-Dialysis 67 BPM Temperature Pre-Dialysis 98 degF Temperature Post -Dialysis 97.3 degF September 15, 2022 In-Center Hemodialysis Treatment 7431-04-29J24:57:00.000Z [id number]:34:37.000Z BP Sitting (Pre-Dialysis) 154/72 mmHg BP Sitting (Post-Dialysis) 142/70 mmHg Concurrent Access: falseAV Fistula Upper Arm (Right) Arterial Sitting Heart Rate Pre-Dialysis 66 BPM Sitting H eart Rate Post-Dialysis 68 BPM Temperature Pre-Dialysis 98.4 degF Temperature Post -Dialysis 98.1 degF September 13, 2022 In-Center Hemodialysis Treatment [id number]:00:00.000Z [id number]:33:36.000Z BP Sitting (Pre-Dialysis) 121/70 mmHg BP Sitting (Post-Dialysis) 115/51 mmHg Concurrent Access: falseAV Fistula Upper Arm (Right) Arterial Sitting Heart Rate Pre-Dialysis 62 BPM Sitting H eart Rate Post-Dialysis 59 BPM Temperature Pre-Dialysis 98.1 degF Temperature Post -Dialysis 97.3 degF September 11, 2022 In-Center Hemodialysis Treatment [id number]:51:57.000Z [id number]:28:12.000Z BP Sitting (Pre-Dialysis) 130/64 mmHg BP Sitting (Post-Dialysis) 140/66 mmHg Concurrent Access: falseAV Fistula Upper Arm (Right) Arterial Sitting Heart Rate Pre-Dialysis 72 BPM Sitting H eart Rate Post-Dialysis 62 BPM Temperature Pre-Dialysis 97.9 degF Temperature Post -Dialysis 97.7 degF September 08, 2022 In-Center Hemodialysis Treatment [id number]:49:00.000Z [id number]:22:46.000Z BP Sitting (Pre-Dialysis) 111/54 mmHg BP Sitting (Post-Dialysis) 114/58 mmHg Concurrent Access: falseAV Fistula Upper Arm (Right) Arterial Sitting Heart Rate Pre-Dialysis 61 BPM Sitting H eart Rate Post-Dialysis 54 BPM Temperature Pre-Dialysis 98.5 degF Temperature Post -Dialysis 97.9 degF September 06, 2022 In-Center Hemodialysis Treatment [id number]:40:00.000Z [id number]:09:00.000Z BP Sitting (Pre-Dialysis) 134/78 mmHg BP Sitting (Post-Dialysis) 140/65 mmHg Concurrent Access: falseAV Fistula Upper Arm (Right) Arterial Sitting Heart Rate Pre-Dialysis 82 BPM Sitting H eart Rate Post-Dialysis 61 BPM Temperature Pre-Dialysis 98.3 degF Temperature Post -Dialysis 98.1 degF September 04, 2022 In-Center Hemodialysis Treatment [id number]:05:00.000Z [id number]:32:52.000Z BP Sitting (Pre-Dialysis) 112/58 mmHg BP Sitting (Post-Dialysis) 132/60 mmHg Concurrent Access: falseAV Fistula Upper Arm (Right) Arterial Sitting Heart Rate Pre-Dialysis 65 BPM Sitting H eart Rate Post-Dialysis 59 BPM Temperature Pre-Dialysis 98.3 degF Temperature Post -Dialysis 97.6 degF September 01, 2022 In-Center Hemodialysis Treatment [id number]:40:00.000Z [id number]:12:39.000Z BP Sitting (Pre-Dialysis) 131/61 mmHg BP Sitting (Post-Dialysis) 159/71 mmHg Concurrent Access: falseAV Fistula Upper Arm (Right) Arterial Sitting Heart Rate Pre-Dialysis 67 BPM Sitting H eart Rate Post-Dialysis 68 BPM Temperature Pre-Dialysis 98.3 degF Temperature Post -Dialysis 97.5 degF August 30, 2022 In-Center Hemodialysis Treatment [id number]:18:36.000Z [id number]:44:01.000Z BP Sitting (Pre-Dialysis) 128/58 mmHg BP Sitting (Post-Dialysis) 146/67 mmHg Concurrent Access: falseAV Fistula Upper Arm (Right) Arterial Sitting Heart Rate Pre-Dialysis 61 BPM Sitting H eart Rate Post-Dialysis 58 BPM Temperature Pre-Dialysis 98 degF Temperature Post -Dialysis 97.3 degF August 28, 2022 In-Center Hemodialysis Treatment [id number]:05:00.000Z [id number]:23:00.000Z BP Sitting (Pre-Dialysis) 113/56 mmHg BP Sitting (Post-Dialysis) 129/88 mmHg Concurrent Access: falseAV Fistula Upper Arm (Right) Arterial Sitting Heart Rate Pre-Dialysis 65 BPM Sitting H eart Rate Post-Dialysis 71 BPM Temperature Pre-Dialysis 97.2 degF Temperature Post -Dialysis 98 degF August 25, 2022 In-Center Hemodialysis Treatment [id number]:36:54.000Z [id number]:05:00.000Z BP Sitting (Pre-Dialysis) 130/62 mmHg BP Sitting (Post-Dialysis) 146/69 mmHg Concurrent Access: falseAV Fistula Upper Arm (Right) Arterial Sitting Heart Rate Pre-Dialysis 64 BPM Sitting H eart Rate Post-Dialysis 59 BPM Temperature Pre-Dialysis 97.7 degF Temperature Post -Dialysis 97.4 degF August 23, 2022 In-Center Hemodialysis Treatment [id number]:30:00.000Z [id number]:38:49.000Z BP Sitting (Pre-Dialysis) 164/73 mmHg BP Sitting (Post-Dialysis) 136/59 mmHg Concurrent Access: falseAV Fistula Upper Arm (Right) Arterial Sitting Heart Rate Pre-Dialysis 66 BPM Sitting H eart Rate Post-Dialysis 68 BPM Temperature Pre-Dialysis 97.3 degF Temperature Post -Dialysis 97.6 degF August 21, 2022 In-Center Hemodialysis Treatment [id number]:26:55.000Z [id number]:33:35.000Z BP Sitting (Pre-Dialysis) 122/57 mmHg BP Sitting (Post-Dialysis) 108/61 mmHg Concurrent Access: falseAV Fistula Upper Arm (Right) Arterial Sitting Heart Rate Pre-Dialysis 68 BPM Sitting H eart Rate Post-Dialysis 66 BPM Temperature Pre-Dialysis 98.6 degF Temperature Post -Dialysis 97.4 degF August 18, 2022 In-Center Hemodialysis Treatment [id number]:54:00.000Z [id number]:25:34.000Z BP Sitting (Pre-Dialysis) 130/66 mmHg BP Sitting (Post-Dialysis) 147/70 mmHg Concurrent Access: falseAV Fistula Upper Arm (Right) Arterial Sitting Heart Rate Pre-Dialysis 66 BPM Sitting H eart Rate Post-Dialysis 62 BPM Temperature Pre-Dialysis 97.8 degF Temperature Post -Dialysis 97.9 degF August 16, 2022 In-Center Hemodialysis Treatment [id number]:58:49.000Z [id number]:39:39.000Z BP Sitting (Pre-Dialysis) 126/56 mmHg BP Sitting (Post-Dialysis) 143/67 mmHg Concurrent Access: falseAV Fistula Upper Arm (Right) Arterial Sitting Heart Rate Pre-Dialysis 65 BPM Sitting H eart Rate Post-Dialysis 62 BPM Temperature Pre-Dialysis 98.9 degF Temperature Post -Dialysis 97.2 degF August 14, 2022 In-Center Hemodialysis Treatment [id number]:58:00.000Z [id number]:29:00.000Z BP Sitting (Pre-Dialysis) 130/61 mmHg BP Sitting (Post-Dialysis) 146/62 mmHg Concurrent Access: falseAV Fistula Upper Arm (Right) Arterial Sitting Heart Rate Pre-Dialysis 66 BPM Sitting H eart Rate Post-Dialysis 66 BPM Temperature Pre-Dialysis 98.3 degF Temperature Post -Dialysis 97.6 degF DIALYSIS ORDER Dialysis Procedure Orders Type of Dialysis Procedure Order Order Date/Time Observations In-Center Hemodialysis Treatment September 28, 2024 Target Weight 93 kg Dialysate Flow Rate 800 mL/min Blood Flow Rate 400 mL/min Treatment Time 210 min(total) Max UF Rate 13 mL/kg/hr Base Sodium Dialysate Base Sodium 138 mE q/L dialysate_temp 36 C BiCarb Dialysate BiCarbonate 39 mEq/L Access Concurrent No Arterial Access AV Fistula (Upper Ar m (Right)) Venous Access AV Fistula (Upper Ar m (Right)) Arterial Needle Display MANAN [place], 15 G x 1 , [place] , TWIN Venous Needle MANAN [place], 15G x 1 , [place] , TWIN Dialyzer Alexro Elisio 17H 145 5 [email or web address] Dialysate Bath Potassium Potassium 2 mEq /L Dialysate Bath Calcium Calcium 2.5 mEq/L Results Adequacy Description Draw Date Result/Unit Status Ref Range Result Comments URR% 2024-10-09 04:12:18 73 % F DIALYZER FLOW-QD 2024-10-09 04:12:18 800 mL/min F LENGTH OF DIALYSIS 2024-10-09 04:12:18 194 min F Dialyzer JANE 2024-10-09 04:12:18 1455 Calc F PATIENT AGE 2024-10-09 04:12:18 59 Years F BSA OTILIA 2024-10-09 04:12:18 1.54 sq m F WEIGHT - POST DAY 1 2024-10-09 04:12:18 92.7 kg F HEIGHT IN INCHES 2024-10-09 04:12:18 50 Inches F WEIGHT (KG) 2024-10-09 04:12:18 93 kg F WEIGHT - PRE DAY 1 2024-10-09 04:12:18 92.8 kg F PRESCRIBED DAYS/WEEK 2024-10-09 04:12:18 3 Day/Wk F VM (KT/V MEAN VOL) 2024-10-09 04:12:18 41.5 F VT (KT/V TX VOL) 2024-10-09 04:12:18 41.5 L F Residual kt/v 2024-10-09 04:12:18 F Total Kt/V 2024-10-09 04:12:18 1.41 F nPCR 2024-10-09 04:12:18 0.85 G/KG/D F KT/V PRESCRIBED 2024-10-09 04:12:18 1.75 F TBW (Castillo) 2024-10-09 04:12:18 40.23 Liters F AMPUTATE FACTOR 2024-10-09 04:12:18 0.118 F spKt/V 2024-10-09 04:12:18 1.41 F eKt/V 2024-10-09 04:12:18 1.19 F Std Renal KT/V 2024-10-09 04:12:18 N/A F stdKt/V (DIAL) 2024-10-09 04:12:18 N/A F stdKT/V Total 2024-10-09 04:12:18 N/A F TOTAL HOURS/WEEK DIALYSIS 2024-10-09 04:12:18 9 hrs F BLOOD FLOW-QWB 2024-10-09 04:12:18 399 F CURRENT KRU 2024-10-09 04:12:18 F Urea nitrogen [Mass/volume] in Serum or Plasma --post dialysis 2024-10-09 04:10:23 12 mg/dL F 9.0-23.0 Urea nitrogen [Mass/volume] in Serum or Plasma 2024-10-09 00:05:20 44 mg/dL F 9.0-23.0 Creatinine [Mass/volume] in Serum or Plasma 2024-09-24 15:50:19 5.61 mg/dL F 0.7-1.3 URR% 2024-09-10 15:36:36 71 % F DIALYZER FLOW-QD 2024-09-10 15:36:36 800 mL/min F PATIENT AGE 2024-09-10 15:36:36 59 Years F LENGTH OF DIALYSIS 2024-09-10 15:36:36 183 min F Dialyzer JANE 2024-09-10 15:36:36 1455 Calc F BSA OTILIA 2024-09-10 15:36:36 1.54 sq m F WEIGHT - POST DAY 1 2024-09-10 15:36:36 92.6 kg F WEIGHT - PRE DAY 1 2024-09-10 15:36:36 95.8 kg F HEIGHT IN INCHES 2024-09-10 15:36:36 50 Inches F WEIGHT (KG) 2024-09-10 15:36:36 93 kg F PRESCRIBED DAYS/WEEK 2024-09-10 15:36:36 3 Day/Wk F VT (KT/V TX VOL) 2024-09-10 15:36:36 39.5 L F VM (KT/V MEAN VOL) 2024-09-10 15:36:36 41.5 F Residual kt/v 2024-09-10 15:36:36 F KT/V PRESCRIBED 2024-09-10 15:36:36 1.65 F Total Kt/V 2024-09-10 15:36:36 1.4 F nPCR 2024-09-10 15:36:36 0.7 G/KG/D F AMPUTATE FACTOR 2024-09-10 15:36:36 0.118 F TBW (Castillo) 2024-09-10 15:36:36 40.2 Liters F spKt/V 2024-09-10 15:36:36 1.4 F eKt/V 2024-09-10 15:36:36 1.17 F Std Renal KT/V 2024-09-10 15:36:36 N/A F stdKt/V (DIAL) 2024-09-10 15:36:36 N/A F stdKT/V Total 2024-09-10 15:36:36 N/A F TOTAL HOURS/WEEK DIALYSIS 2024-09-10 15:36:36 6 hrs F BLOOD FLOW-QWB 2024-09-10 15:36:36 399 F CURRENT KRU 2024-09-10 15:36:36 F Urea nitrogen [Mass/volume] in Serum or Plasma 2024-09-10 15:34:26 68 mg/dL F 9.0-23.0 Urea nitrogen [Mass/volume] in Serum or Plasma --post dialysis 2024-09-10 15:08:21 20 mg/dL F 9.0-23.0 Creatinine [Mass/volume] in Serum or Plasma 2024-08-20 14:58:29 5.57 mg/dL F 0.7-1.3 Dialyzer JANE 2024-08-07 02:29:30 1455 Calc F DIALYZER FLOW-QD 2024-08-07 02:29:30 800 mL/min F URR% 2024-08-07 02:29:30 68 % F PATIENT AGE 2024-08-07 02:29:30 59 Years F BSA OTILIA 2024-08-07 02:29:30 1.53 sq m F LENGTH OF DIALYSIS 2024-08-07 02:29:30 170 min F WEIGHT - POST DAY 1 2024-08-07 02:29:30 92 kg F WEIGHT - PRE DAY 1 2024-08-07 02:29:30 92 kg F HEIGHT IN INCHES 2024-08-07 02:29:30 50 Inches F VT (KT/V TX VOL) 2024-08-07 02:29:30 40.8 L F WEIGHT (KG) 2024-08-07 02:29:30 93 kg F PRESCRIBED DAYS/WEEK 2024-08-07 02:29:30 3 Day/Wk F VM (KT/V MEAN VOL) 2024-08-07 02:29:30 42.2 F Residual kt/v 2024-08-07 02:29:30 F KT/V PRESCRIBED 2024-08-07 02:29:30 1.53 F AMPUTATE FACTOR 2024-08-07 02:29:30 0.13 F nPCR 2024-08-07 02:29:30 0.72 G/KG/D F Total Kt/V 2024-08-07 02:29:30 1.2 F TBW (Castillo) 2024-08-07 02:29:30 39.88 Liters F spKt/V 2024-08-07 02:29:30 1.2 F eKt/V 2024-08-07 02:29:30 1 F stdKt/V (DIAL) 2024-08-07 02:29:30 N/A F stdKT/V Total 2024-08-07 02:29:30 N/A F Std Renal KT/V 2024-08-07 02:29:30 N/A F TOTAL HOURS/WEEK DIALYSIS 2024-08-07 02:29:30 9 hrs F BLOOD FLOW-QWB 2024-08-07 02:29:30 371 F CURRENT KRU 2024-08-07 02:29:30 F Urea nitrogen [Mass/volume] in Serum or Plasma 2024-08-07 02:23:29 40 mg/dL F 9.0-23.0 Urea nitrogen [Mass/volume] in Serum or Plasma --post dialysis 2024-08-06 20:34:27 13 mg/dL F 9.0-23.0 Creatinine [Mass/volume] in Serum or Plasma 2024-07-25 19:08:09 8.36 mg/dL F 0.7-1.3 Creatinine [Mass/volume] in Serum or Plasma 2024-06-25 14:28:17 5.81 mg/dL F 0.7-1.3 Creatinine [Mass/volume] in Serum or Plasma 2024-05-21 13:36:14 5.8 mg/dL F 0.7-1.3 Creatinine [Mass/volume] in Serum or Plasma 2024-04-23 14:24:33 5.87 mg/dL F 0.7-1.3 Creatinine [Mass/volume] in Serum or Plasma 2024-03-20 15:43:49 5.09 mg/dL F 0.7-1.3 Creatinine [Mass/volume] in Serum or Plasma 2024-02-20 20:18:39 4.92 mg/dL F 0.7-1.3 Creatinine [Mass/volume] in Serum or Plasma 2024-01-23 15:41:23 4.65 mg/dL F 0.7-1.3 Creatinine [Mass/volume] in Serum or Plasma 2023-12-19 23:48:41 4.59 mg/dL F 0.7-1.3 Creatinine [Mass/volume] in Serum or Plasma 2023-11-21 16:00:34 4.5 mg/dL F 0.7-1.3 Creatinine [Mass/volume] in Serum or Plasma 2023-10-26 16:27:38 8.45 mg/dL F 0.7-1.3 Creatinine [Mass/volume] in Serum or Plasma 2023-09-26 19:30:07 8.23 mg/dL F 0.7-1.3 Creatinine [Mass/volume] in Serum or Plasma 2023-08-22 18:41:30 6.39 mg/dL F 0.7-1.3 Creatinine [Mass/volume] in Serum or Plasma 2023-07-18 16:35:41 7.21 mg/dL F 0.7-1.3 Creatinine [Mass/volume] in Serum or Plasma 2023-06-22 18:20:31 7.72 mg/dL F 0.7-1.3 Creatinine [Mass/volume] in Serum or Plasma 2023-05-24 01:15:34 4.67 mg/dL F 0.7-1.3 URR% 2023-05-02 14:22:11 58 % F Dialyzer JANE 2023-05-02 14:22:11 1218 Calc F DIALYZER FLOW-QD 2023-05-02 14:22:11 500 mL/min F LENGTH OF DIALYSIS 2023-05-02 14:22:11 88 min F BSA OTILIA 2023-05-02 14:22:11 1.57 sq m F PATIENT AGE 2023-05-02 14:22:11 57 Years F WEIGHT - POST DAY 1 2023-05-02 14:22:11 79.6 kg F WEIGHT - PRE DAY 1 2023-05-02 14:22:11 79.3 kg F PRESCRIBED DAYS/WEEK 2023-05-02 14:22:11 3 Day/Wk F HEIGHT IN INCHES 2023-05-02 14:22:11 50 Inches F WEIGHT (KG) 2023-05-02 14:22:11 99 kg F VT (KT/V TX VOL) 2023-05-02 14:22:11 26.8 L F VM (KT/V MEAN VOL) 2023-05-02 14:22:11 38.5 F Residual kt/v 2023-05-02 14:22:11 F Total Kt/V 2023-05-02 14:22:11 0.87 F KT/V PRESCRIBED 2023-05-02 14:22:11 0.67 F nPCR 2023-05-02 14:22:11 0.3 G/KG/D F TBW (Castillo) 2023-05-02 14:22:11 35.87 Liters F AMPUTATE FACTOR 2023-05-02 14:22:11 0.13 F spKt/V 2023-05-02 14:22:11 0.87 F stdKt/V (DIAL) 2023-05-02 14:22:11 N/A F eKt/V 2023-05-02 14:22:11 0.63 F Std Renal KT/V 2023-05-02 14:22:11 N/A F TOTAL HOURS/WEEK DIALYSIS 2023-05-02 14:22:11 1 hrs F stdKT/V Total 2023-05-02 14:22:11 N/A F BLOOD FLOW-QWB 2023-05-02 14:22:11 399 F CURRENT KRU 2023-05-02 14:22:11 F Urea nitrogen [Mass/volume] in Serum or Plasma --post dialysis 2023-05-02 14:20:33 16 mg/dL F 9.0-23.0 Urea nitrogen [Mass/volume] in Serum or Plasma 2023-05-02 13:52:27 38 mg/dL F 9.0-23.0 Creatinine [Mass/volume] in Serum or Plasma 2023-05-02 13:52:27 4.51 mg/dL F 0.7-1.3 WEIGHT - PRE DAY 1 2023-01-09 20:34:34 100.7 kg F HEIGHT IN INCHES 2023-01-09 20:34:34 50 Inches F WEIGHT (KG) 2023-01-09 20:34:34 94.1 kg F VT (KT/V TX VOL) 2023-01-09 20:34:34 36.3 L F PRESCRIBED DAYS/WEEK 2023-01-09 20:34:34 3 Day/Wk F VM (KT/V MEAN VOL) 2023-01-09 20:34:34 36.3 F Residual kt/v 2023-01-09 20:34:34 F KT/V PRESCRIBED 2023-01-09 20:34:34 1.03 F nPCR 2023-01-09 20:34:34 1.01 G/KG/D F Total Kt/V 2023-01-09 20:34:34 1 F AMPUTATE FACTOR 2023-01-09 20:34:34 0 F TBW (Castillo) 2023-01-09 20:34:34 43.69 Liters F spKt/V 2023-01-09 20:34:34 1 F eKt/V 2023-01-09 20:34:34 0.8 F stdKt/V (DIAL) 2023-01-09 20:34:34 N/A F Std Renal KT/V 2023-01-09 20:34:34 N/A F TOTAL HOURS/WEEK DIALYSIS 2023-01-09 20:34:34 5 F stdKT/V Total 2023-01-09 20:34:34 N/A F BLOOD FLOW-QWB 2023-01-09 20:34:34 399 F CURRENT KRU 2023-01-09 20:34:34 F URR% 2023-01-09 20:34:33 59 % F DIALYZER FLOW-QD 2023-01-09 20:34:33 500 mL/min F Dialyzer JANE 2023-01-09 20:34:33 1218 Calc F LENGTH OF DIALYSIS 2023-01-09 20:34:33 135 min F PATIENT AGE 2023-01-09 20:34:33 57 Years F WEIGHT - POST DAY 1 2023-01-09 20:34:33 98.8 kg F BSA OTILIA 2023-01-09 20:34:33 1.66 sq m F Urea nitrogen [Mass/volume] in Serum or Plasma 2023-01-05 01:10:15 85 mg/dL F 9.0-23.0 Creatinine [Mass/volume] in Serum or Plasma 2023-01-05 01:10:15 6.69 mg/dL F 0.7-1.3 Urea nitrogen [Mass/volume] in Serum or Plasma --post dialysis 2023-01-05 00:27:15 35 mg/dL F 9.0-23.0 Creatinine [Mass/volume] in Serum or Plasma 2022-08-17 15:40:40 6.25 mg/dL F 0.7-1.3 Urea nitrogen [Mass/volume] in Serum or Plasma BSA OTILIA VT (KT/V TX VOL) VM (KT/V MEAN VOL) Residual kt/v TBW (Castillo) Std Renal KT/V eKt/V CURRENT KRU Anemia Description Draw Date Result/Unit Status Ref Range Result Comments HCT CALC HGBX3 2024-10-08 22:01:21 29.1 % F 42.0-52.0 Hemoglobin [Mass/volume] in Blood 2024-10-08 22:00:22 9.7 g/dL F 14.0-18.0 ABSOLUTE RETIC COUNT 2024-09-26 20:14:22 0.043 x 10^6 cells/uL F 0.035-0.127 Reticulocytes/100 erythrocytes in Blood by Automated count 2024-09-26 20:14:22 1.54 % F 0.7-2.5 HCT CALC HGBX3 2024-09-24 18:01:14 28.8 % F 42.0-52.0 MCV [Entitic volume] by Automated count 2024-09-24 18:00:17 105.9 fL F 80.0-100.0 Hematocrit [Volume Fraction] of Blood by Automated count 2024-09-24 18:00:17 30 % F 41.0-53.0 MCH [Entitic mass] by Automated count 2024-09-24 18:00:17 34 pg F 25.9-34.2 MCHC [Mass/volume] by Automated count 2024-09-24 18:00:17 32.1 g/dL F 29.6-35.3 Erythrocyte distribution width [Ratio] by Automated count 2024-09-24 18:00:15 15.4 % F 11.0-15.0 Erythrocytes [#/volume] in Blood by Automated count 2024-09-24 18:00:15 2.83 x 10^6 cells/uL F 4.6-6.2 Hemoglobin [Mass/volume] in Blood 2024-09-24 18:00:15 9.6 g/dL F 14.0-18.0 Platelets [#/volume] in Blood by Automated count 2024-09-24 18:00:15 59 x 10^3 cells/uL F 140.0-450.0 HCT CALC HGBX3 2024-09-10 22:58:11 32.4 % F 42.0-52.0 Hemoglobin [Mass/volume] in Blood 2024-09-10 22:52:25 10.8 g/dL F 14.0-18.0 Ferritin [Mass/volume] in Serum or Plasma 2024-08-21 08:26:59 667 ng/mL F 22.0-322.0 IRON SATURATION 2024-08-20 20:24:15 39 % F 21.0-49.0 TIBC 2024-08-20 20:24:15 208 ug/dL F 250.0-425.0 Iron [Mass/volume] in Serum or Plasma 2024-08-20 20:22:21 82 ug/dL F 65.0-175.0 Iron binding capacity.unsaturated [Mass/volume] in Serum or Plasma 2024-08-20 20:22:21 126 ug/dL F 75.0-360.0 HCT CALC HGBX3 2024-08-20 15:24:05 32.7 % F 42.0-52.0 Erythrocyte distribution width [Ratio] by Automated count 2024-08-20 15:20:18 16.2 % F 11.0-15.0 MCHC [Mass/volume] by Automated count 2024-08-20 15:20:18 30.6 g/dL F 29.6-35.3 Platelets [#/volume] in Blood by Automated count 2024-08-20 15:20:18 58 x 10^3 cells/uL F 140.0-450.0 Hemoglobin [Mass/volume] in Blood 2024-08-20 15:20:17 10.9 g/dL F 14.0-18.0 Hematocrit [Volume Fraction] of Blood by Automated count 2024-08-20 15:20:17 35.6 % F 41.0-53.0 Erythrocytes [#/volume] in Blood by Automated count 2024-08-20 15:20:17 3.36 x 10'6 cells/uL F 4.6-6.2 MCV [Entitic volume] by Automated count 2024-08-20 15:20:17 106 fL F 80.0-100.0 MCH [Entitic mass] by Automated count 2024-08-20 15:20:17 32.5 pg F 25.9-34.2 HCT CALC HGBX3 2024-08-06 20:25:46 33.3 % F 42.0-52.0 Hemoglobin [Mass/volume] in Blood 2024-08-06 20:24:15 11.1 g/dL F 14.0-18.0 Ferritin [Mass/volume] in Serum or Plasma 2024-07-26 06:30:45 990 ng/mL F 22.0-322.0 IRON SATURATION 2024-07-26 06:08:20 32 % F 21.0-49.0 TIBC 2024-07-26 06:08:20 216 ug/dL F 250.0-425.0 Iron binding capacity.unsaturated [Mass/volume] in Serum or Plasma 2024-07-26 06:00:35 146 ug/dL F 75.0-360.0 Iron [Mass/volume] in Serum or Plasma 2024-07-26 06:00:32 70 ug/dL F 65.0-175.0 HCT CALC HGBX3 2024-07-25 18:11:17 33.3 % F 42.0-52.0 Erythrocyte distribution width [Ratio] by Automated count 2024-07-25 18:10:16 15.5 % F 11.0-15.0 Erythrocytes [#/volume] in Blood by Automated count 2024-07-25 18:10:16 3.37 x 10'6 cells/uL F 4.6-6.2 Hematocrit [Volume Fraction] of Blood by Automated count 2024-07-25 18:10:16 34.6 % F 41.0-53.0 Hemoglobin [Mass/volume] in Blood 2024-07-25 18:10:16 11.1 g/dL F 14.0-18.0 MCV [Entitic volume] by Automated count 2024-07-25 18:10:16 102.6 fL F 80.0-100.0 MCHC [Mass/volume] by Automated count 2024-07-25 18:10:16 32 g/dL F 29.6-35.3 MCH [Entitic mass] by Automated count 2024-07-25 18:10:16 32.8 pg F 25.9-34.2 Platelets [#/volume] in Blood by Automated count 2024-07-25 18:10:16 70 x 10^3 cells/uL F 140.0-450.0 HCT CALC HGBX3 2024-06-25 14:35:36 31.5 % F 42.0-52.0 Erythrocyte distribution width [Ratio] by Automated count 2024-06-25 14:35:11 16 % F 11.0-15.0 Erythrocytes [#/volume] in Blood by Automated count 2024-06-25 14:35:11 3.18 x 10'6 cells/uL F 4.6-6.2 Hematocrit [Volume Fraction] of Blood by Automated count 2024-06-25 14:35:11 33.3 % F 41.0-53.0 Hemoglobin [Mass/volume] in Blood 2024-06-25 14:35:11 10.5 g/dL F 14.0-18.0 MCH [Entitic mass] by Automated count 2024-06-25 14:35:11 33.2 pg F 25.9-34.2 MCV [Entitic volume] by Automated count 2024-06-25 14:35:11 104.7 fL F 80.0-100.0 MCHC [Mass/volume] by Automated count 2024-06-25 14:35:11 31.7 g/dL F 29.6-35.3 Platelets [#/volume] in Blood by Automated count 2024-06-25 14:35:11 63 x 10^3 cells/uL F 140.0-450.0 Ferritin [Mass/volume] in Serum or Plasma 2024-05-22 05:16:39 738 ng/mL F 22.0-322.0 TIBC 2024-05-21 16:03:05 216 ug/dL F 250.0-425.0 IRON SATURATION 2024-05-21 16:03:05 29 % F 21.0-49.0 Iron binding capacity.unsaturated [Mass/volume] in Serum or Plasma 2024-05-21 16:02:22 153 ug/dL F 75.0-360.0 Iron [Mass/volume] in Serum or Plasma 2024-05-21 16:02:22 63 ug/dL F 65.0-175.0 HCT CALC HGBX3 2024-05-21 14:55:00 31.8 % F 42.0-52.0 MCH [Entitic mass] by Automated count 2024-05-21 14:54:20 32.3 pg F 25.9-34.2 Erythrocyte distribution width [Ratio] by Automated count 2024-05-21 14:54:19 16.5 % F 11.0-15.0 Erythrocytes [#/volume] in Blood by Automated count 2024-05-21 14:54:19 3.28 x 10'6 cells/uL F 4.6-6.2 Hemoglobin [Mass/volume] in Blood 2024-05-21 14:54:19 10.6 g/dL F 14.0-18.0 Hematocrit [Volume Fraction] of Blood by Automated count 2024-05-21 14:54:19 34 % F 41.0-53.0 MCHC [Mass/volume] by Automated count 2024-05-21 14:54:19 31.2 g/dL F 29.6-35.3 MCV [Entitic volume] by Automated count 2024-05-21 14:54:19 103.5 fL F 80.0-100.0 Platelets [#/volume] in Blood by Automated count 2024-05-21 14:54:19 78 x 10^3 cells/uL F 140.0-450.0 Ferritin [Mass/volume] in Serum or Plasma 2024-04-23 18:14:22 863 ng/mL F 22.0-322.0 IRON SATURATION 2024-04-23 16:18:09 28 % F 21.0-49.0 TIBC 2024-04-23 16:18:09 220 ug/dL F 250.0-425.0 Iron [Mass/volume] in Serum or Plasma 2024-04-23 16:16:50 61 ug/dL F 65.0-175.0 Iron binding capacity.unsaturated [Mass/volume] in Serum or Plasma 2024-04-23 16:16:50 159 ug/dL F 75.0-360.0 HCT CALC HGBX3 2024-04-23 14:52:14 32.1 % F 42.0-52.0 Erythrocyte distribution width [Ratio] by Automated count 2024-04-23 14:51:31 16.3 % F 11.0-15.0 Erythrocytes [#/volume] in Blood by Automated count 2024-04-23 14:51:31 3.3 x 10'6 cells/uL F 4.6-6.2 MCV [Entitic volume] by Automated count 2024-04-23 14:51:31 101 fL F 80.0-100.0 MCH [Entitic mass] by Automated count 2024-04-23 14:51:31 32.5 pg F 25.9-34.2 MCHC [Mass/volume] by Automated count 2024-04-23 14:51:31 32.2 g/dL F 29.6-35.3 Platelets [#/volume] in Blood by Automated count 2024-04-23 14:51:31 78 x 10^3 cells/uL F 140.0-450.0 Hematocrit [Volume Fraction] of Blood by Automated count 2024-04-23 14:51:30 33.3 % F 41.0-53.0 Hemoglobin [Mass/volume] in Blood 2024-04-23 14:51:30 10.7 g/dL F 14.0-18.0 HCT CALC HGBX3 2024-03-20 15:40:53 33 % F 42.0-52.0 Erythrocytes [#/volume] in Blood by Automated count 2024-03-20 15:39:56 3.5 x 10'6 cells/uL F 4.6-6.2 Erythrocyte distribution width [Ratio] by Automated count 2024-03-20 15:39:56 16.4 % F 11.0-15.0 Hematocrit [Volume Fraction] of Blood by Automated count 2024-03-20 15:39:56 35.5 % F 41.0-53.0 Hemoglobin [Mass/volume] in Blood 2024-03-20 15:39:56 11 g/dL F 14.0-18.0 MCV [Entitic volume] by Automated count 2024-03-20 15:39:56 101.7 fL F 80.0-100.0 MCH [Entitic mass] by Automated count 2024-03-20 15:39:56 31.4 pg F 25.9-34.2 Platelets [#/volume] in Blood by Automated count 2024-03-20 15:39:56 72 x 10^3 cells/uL F 140.0-450.0 MCHC [Mass/volume] by Automated count 2024-03-20 15:39:56 30.9 g/dL F 29.6-35.3 HCT CALC HGBX3 2024-02-20 17:31:58 30.6 % F 42.0-52.0 Erythrocyte distribution width [Ratio] by Automated count 2024-02-20 17:31:42 16.1 % F 11.0-15.0 Erythrocytes [#/volume] in Blood by Automated count 2024-02-20 17:31:42 3.2 x 10'6 cells/uL F 4.6-6.2 Hematocrit [Volume Fraction] of Blood by Automated count 2024-02-20 17:31:42 33 % F 41.0-53.0 Hemoglobin [Mass/volume] in Blood 2024-02-20 17:31:42 10.2 g/dL F 14.0-18.0 MCV [Entitic volume] by Automated count 2024-02-20 17:31:42 103 fL F 80.0-100.0 MCH [Entitic mass] by Automated count 2024-02-20 17:31:42 32 pg F 25.9-34.2 MCHC [Mass/volume] by Automated count 2024-02-20 17:31:42 31.1 g/dL F 29.6-35.3 Platelets [#/volume] in Blood by Automated count 2024-02-20 17:31:42 86 x 10^3 cells/uL F 140.0-450.0 Ferritin [Mass/volume] in Serum or Plasma 2024-01-24 06:56:44 690 ng/mL F 22.0-322.0 IRON SATURATION 2024-01-24 00:28:21 21 % F 21.0-49.0 TIBC 2024-01-24 00:28:21 217 ug/dL F 250.0-425.0 Iron [Mass/volume] in Serum or Plasma 2024-01-24 00:26:41 45 ug/dL F 65.0-175.0 Iron binding capacity.unsaturated [Mass/volume] in Serum or Plasma 2024-01-24 00:26:41 172 ug/dL F 75.0-360.0 HCT CALC HGBX3 2024-01-23 16:40:42 30.3 % F 42.0-52.0 Erythrocyte distribution width [Ratio] by Automated count 2024-01-23 16:40:38 17.3 % F 11.0-15.0 Erythrocytes [#/volume] in Blood by Automated count 2024-01-23 16:40:38 3.26 x 10'6 cells/uL F 4.6-6.2 Hematocrit [Volume Fraction] of Blood by Automated count 2024-01-23 16:40:38 32.9 % F 41.0-53.0 Hemoglobin [Mass/volume] in Blood 2024-01-23 16:40:38 10.1 g/dL F 14.0-18.0 MCV [Entitic volume] by Automated count 2024-01-23 16:40:38 101 fL F 80.0-100.0 Platelets [#/volume] in Blood by Automated count 2024-01-23 16:40:38 77 x 10^3 cells/uL F 140.0-450.0 MCHC [Mass/volume] by Automated count 2024-01-23 16:40:38 30.8 g/dL F 29.6-35.3 MCH [Entitic mass] by Automated count 2024-01-23 16:40:38 31.1 pg F 25.9-34.2 IRON SATURATION 2023-12-20 06:11:51 26 % F 21.0-49.0 TIBC 2023-12-20 06:11:51 218 ug/dL F 250.0-425.0 Iron binding capacity.unsaturated [Mass/volume] in Serum or Plasma 2023-12-20 06:06:53 162 ug/dL F 75.0-360.0 Iron [Mass/volume] in Serum or Plasma 2023-12-20 06:06:37 56 ug/dL F 65.0-175.0 Ferritin [Mass/volume] in Serum or Plasma 2023-12-20 04:27:43 825 ng/mL F 22.0-322.0 HCT CALC HGBX3 2023-12-19 18:28:36 29.4 % F 42.0-52.0 Erythrocyte distribution width [Ratio] by Automated count 2023-12-19 18:27:46 14.3 % F 11.0-15.0 Erythrocytes [#/volume] in Blood by Automated count 2023-12-19 18:27:46 3.21 x 10'6 cells/uL F 4.6-6.2 Hematocrit [Volume Fraction] of Blood by Automated count 2023-12-19 18:27:46 31.8 % F 41.0-53.0 Hemoglobin [Mass/volume] in Blood 2023-12-19 18:27:46 9.8 g/dL F 14.0-18.0 MCV [Entitic volume] by Automated count 2023-12-19 18:27:46 98.9 fL F 80.0-100.0 MCH [Entitic mass] by Automated count 2023-12-19 18:27:46 30.6 pg F 25.9-34.2 MCHC [Mass/volume] by Automated count 2023-12-19 18:27:46 30.9 g/dL F 29.6-35.3 Platelets [#/volume] in Blood by Automated count 2023-12-19 18:27:46 89 x 10^3 cells/uL F 140.0-450.0 IRON SATURATION 2023-11-22 05:12:14 23 % F 21.0-49.0 TIBC 2023-11-22 05:12:14 174 ug/dL F 250.0-425.0 Iron [Mass/volume] in Serum or Plasma 2023-11-22 05:10:27 40 ug/dL F 65.0-175.0 Iron binding capacity.unsaturated [Mass/volume] in Serum or Plasma 2023-11-22 05:10:27 134 ug/dL F 75.0-360.0 Ferritin [Mass/volume] in Serum or Plasma 2023-11-21 22:51:16 928 ng/mL F 22.0-322.0 HCT CALC HGBX3 2023-11-21 22:00:57 27 % F 42.0-52.0 Erythrocyte distribution width [Ratio] by Automated count 2023-11-21 22:00:32 15.3 % F 11.0-15.0 Erythrocytes [#/volume] in Blood by Automated count 2023-11-21 22:00:32 2.82 x 10'6 cells/uL F 4.6-6.2 Hematocrit [Volume Fraction] of Blood by Automated count 2023-11-21 22:00:32 28.5 % F 41.0-53.0 Hemoglobin [Mass/volume] in Blood 2023-11-21 22:00:32 9 g/dL F 14.0-18.0 MCV [Entitic volume] by Automated count 2023-11-21 22:00:32 101 fL F 80.0-100.0 MCH [Entitic mass] by Automated count 2023-11-21 22:00:32 31.8 pg F 25.9-34.2 MCHC [Mass/volume] by Automated count 2023-11-21 22:00:32 31.4 g/dL F 29.6-35.3 Platelets [#/volume] in Blood by Automated count 2023-11-21 22:00:32 99 x 10^3 cells/uL F 140.0-450.0 Ferritin [Mass/volume] in Serum or Plasma 2023-10-27 05:08:15 1078 ng/mL F 22.0-322.0 IRON SATURATION 2023-10-27 04:33:07 40 % F 21.0-49.0 TIBC 2023-10-27 04:33:07 184 ug/dL F 250.0-425.0 Iron [Mass/volume] in Serum or Plasma 2023-10-27 04:31:42 74 ug/dL F 65.0-175.0 Iron binding capacity.unsaturated [Mass/volume] in Serum or Plasma 2023-10-27 04:31:42 110 ug/dL F 75.0-360.0 HCT CALC HGBX3 2023-10-26 18:25:05 30.6 % F 42.0-52.0 Erythrocyte distribution width [Ratio] by Automated count 2023-10-26 18:24:32 17.1 % F 11.0-15.0 Erythrocytes [#/volume] in Blood by Automated count 2023-10-26 18:24:32 3.39 x 10'6 cells/uL F 4.6-6.2 Hemoglobin [Mass/volume] in Blood 2023-10-26 18:24:32 10.2 g/dL F 14.0-18.0 Platelets [#/volume] in Blood by Automated count 2023-10-26 18:24:32 82 x 10^3 cells/uL F 140.0-450.0 Hematocrit [Volume Fraction] of Blood by Automated count 2023-10-26 18:24:30 32.8 % F 41.0-53.0 MCV [Entitic volume] by Automated count 2023-10-26 18:24:30 96.8 fL F 80.0-100.0 MCH [Entitic mass] by Automated count 2023-10-26 18:24:30 30 pg F 25.9-34.2 MCHC [Mass/volume] by Automated count 2023-10-26 18:24:30 31.1 g/dL F 29.6-35.3 HCT CALC HGBX3 2023-09-26 23:58:38 30.6 % F 42.0-52.0 Erythrocyte distribution width [Ratio] by Automated count 2023-09-26 23:58:03 19.1 % F 11.0-15.0 Erythrocytes [#/volume] in Blood by Automated count 2023-09-26 23:58:03 3.47 x 10'6 cells/uL F 4.6-6.2 Hemoglobin [Mass/volume] in Blood 2023-09-26 23:58:03 10.2 g/dL F 14.0-18.0 Hematocrit [Volume Fraction] of Blood by Automated count 2023-09-26 23:58:03 32.4 % F 41.0-53.0 MCV [Entitic volume] by Automated count 2023-09-26 23:58:03 93.4 fL F 80.0-100.0 MCHC [Mass/volume] by Automated count 2023-09-26 23:58:03 31.4 g/dL F 29.6-35.3 MCH [Entitic mass] by Automated count 2023-09-26 23:58:03 29.3 pg F 25.9-34.2 Platelets [#/volume] in Blood by Automated count 2023-09-26 23:58:03 114 x 10^3 cells/uL F 140.0-450.0 HCT CALC HGBX3 2023-08-22 18:58:50 32.4 % F 42.0-52.0 Erythrocyte distribution width [Ratio] by Automated count 2023-08-22 18:58:31 17 % F 11.0-15.0 Erythrocytes [#/volume] in Blood by Automated count 2023-08-22 18:58:31 3.75 x 10'6 cells/uL F 4.6-6.2 Hematocrit [Volume Fraction] of Blood by Automated count 2023-08-22 18:58:31 35.3 % F 41.0-53.0 Hemoglobin [Mass/volume] in Blood 2023-08-22 18:58:31 10.8 g/dL F 14.0-18.0 MCV [Entitic volume] by Automated count 2023-08-22 18:58:31 94.1 fL F 80.0-100.0 MCH [Entitic mass] by Automated count 2023-08-22 18:58:31 28.9 pg F 25.9-34.2 MCHC [Mass/volume] by Automated count 2023-08-22 18:58:31 30.7 g/dL F 29.6-35.3 Platelets [#/volume] in Blood by Automated count 2023-08-22 18:58:31 126 x 10^3 cells/uL F 140.0-450.0 IRON SATURATION 2023-07-19 07:11:24 20 % F 21.0-49.0 TIBC 2023-07-19 07:11:24 246 ug/dL F 250.0-425.0 Iron [Mass/volume] in Serum or Plasma 2023-07-19 07:09:07 50 ug/dL F 65.0-175.0 Iron binding capacity.unsaturated [Mass/volume] in Serum or Plasma 2023-07-19 07:09:07 196 ug/dL F 75.0-360.0 Ferritin [Mass/volume] in Serum or Plasma 2023-07-19 05:13:37 649 ng/mL F 22.0-322.0 HCT CALC HGBX3 2023-07-18 16:26:42 31.8 % F 42.0-52.0 Erythrocyte distribution width [Ratio] by Automated count 2023-07-18 16:26:36 17.3 % F 11.0-15.0 MCV [Entitic volume] by Automated count 2023-07-18 16:26:36 97.8 fL F 80.0-100.0 MCH [Entitic mass] by Automated count 2023-07-18 16:26:36 30.4 pg F 25.9-34.2 Platelets [#/volume] in Blood by Automated count 2023-07-18 16:26:36 125 x 10^3 cells/uL F 140.0-450.0 Erythrocytes [#/volume] in Blood by Automated count 2023-07-18 16:26:35 3.47 x 10'6 cells/uL F 4.6-6.2 Hematocrit [Volume Fraction] of Blood by Automated count 2023-07-18 16:26:35 33.9 % F 41.0-53.0 Hemoglobin [Mass/volume] in Blood 2023-07-18 16:26:35 10.6 g/dL F 14.0-18.0 MCHC [Mass/volume] by Automated count 2023-07-18 16:26:35 31.1 g/dL F 29.6-35.3 ABSOLUTE RETIC COUNT 2023-07-18 16:26:35 0.077 x 10'6 cells/uL F 0.035-0.127 Reticulocytes/100 erythrocytes in Blood by Automated count 2023-07-18 16:26:35 2.21 % F 0.7-2.5 Ferritin [Mass/volume] in Serum or Plasma 2023-06-23 05:02:58 728 ng/mL F 22.0-322.0 IRON SATURATION 2023-06-23 03:55:16 18 % F 21.0-49.0 TIBC 2023-06-23 03:55:16 267 ug/dL F 250.0-425.0 Iron [Mass/volume] in Serum or Plasma 2023-06-23 03:54:55 47 ug/dL F 65.0-175.0 Iron binding capacity.unsaturated [Mass/volume] in Serum or Plasma 2023-06-23 03:54:55 220 ug/dL F 75.0-360.0 HCT CALC HGBX3 2023-06-23 00:09:40 29.1 % F 42.0-52.0 Erythrocyte distribution width [Ratio] by Automated count 2023-06-23 00:09:21 16.4 % F 11.0-15.0 Erythrocytes [#/volume] in Blood by Automated count 2023-06-23 00:09:21 3.03 x 10'6 cells/uL F 4.6-6.2 Hematocrit [Volume Fraction] of Blood by Automated count 2023-06-23 00:09:21 31.4 % F 41.0-53.0 Hemoglobin [Mass/volume] in Blood 2023-06-23 00:09:21 9.7 g/dL F 14.0-18.0 MCV [Entitic volume] by Automated count 2023-06-23 00:09:21 103.6 fL F 80.0-100.0 MCH [Entitic mass] by Automated count 2023-06-23 00:09:21 31.9 pg F 25.9-34.2 MCHC [Mass/volume] by Automated count 2023-06-23 00:09:21 30.7 g/dL F 29.6-35.3 Platelets [#/volume] in Blood by Automated count 2023-06-23 00:09:21 137 x 10^3 cells/uL F 140.0-450.0 Ferritin [Mass/volume] in Serum or Plasma 2023-05-24 04:55:02 1015 ng/mL F 22.0-322.0 IRON SATURATION 2023-05-24 03:24:20 21 % F 21.0-49.0 TIBC 2023-05-24 03:24:20 249 ug/dL F 250.0-425.0 Iron [Mass/volume] in Serum or Plasma 2023-05-24 03:19:40 53 ug/dL F 65.0-175.0 Iron binding capacity.unsaturated [Mass/volume] in Serum or Plasma 2023-05-24 03:19:40 196 ug/dL F 75.0-360.0 HCT CALC HGBX3 2023-05-24 00:01:04 27.9 % F 42.0-52.0 Erythrocyte distribution width [Ratio] by Automated count 2023-05-24 00:00:33 15.6 % F 11.0-15.0 Erythrocytes [#/volume] in Blood by Automated count 2023-05-24 00:00:33 2.73 x 10'6 cells/uL F 4.6-6.2 Hematocrit [Volume Fraction] of Blood by Automated count 2023-05-24 00:00:33 29 % F 41.0-53.0 Hemoglobin [Mass/volume] in Blood 2023-05-24 00:00:33 9.3 g/dL F 14.0-18.0 MCH [Entitic mass] by Automated count 2023-05-24 00:00:33 34 pg F 25.9-34.2 MCV [Entitic volume] by Automated count 2023-05-24 00:00:33 106.2 fL F 80.0-100.0 MCHC [Mass/volume] by Automated count 2023-05-24 00:00:33 32 g/dL F 29.6-35.3 Platelets [#/volume] in Blood by Automated count 2023-05-24 00:00:33 196 x 10^3 cells/uL F 140.0-450.0 IRON SATURATION 2023-05-03 03:52:08 39 % F 21.0-49.0 TIBC 2023-05-03 03:52:08 231 ug/dL F 250.0-425.0 Iron [Mass/volume] in Serum or Plasma 2023-05-03 03:51:53 90 ug/dL F 65.0-175.0 Iron binding capacity.unsaturated [Mass/volume] in Serum or Plasma 2023-05-03 03:51:53 141 ug/dL F 75.0-360.0 HCT CALC HGBX3 2023-05-02 14:28:50 32.1 % F 42.0-52.0 Erythrocyte distribution width [Ratio] by Automated count 2023-05-02 14:28:27 17 % F 11.0-15.0 Hematocrit [Volume Fraction] of Blood by Automated count 2023-05-02 14:28:27 34 % F 41.0-53.0 Erythrocytes [#/volume] in Blood by Automated count 2023-05-02 14:28:27 3.27 x 10'6 cells/uL F 4.6-6.2 Hemoglobin [Mass/volume] in Blood 2023-05-02 14:28:27 10.7 g/dL F 14.0-18.0 MCV [Entitic volume] by Automated count 2023-05-02 14:28:27 103.9 fL F 80.0-100.0 MCH [Entitic mass] by Automated count 2023-05-02 14:28:27 32.9 pg F 25.9-34.2 MCHC [Mass/volume] by Automated count 2023-05-02 14:28:27 31.6 g/dL F 29.6-35.3 Platelets [#/volume] in Blood by Automated count 2023-05-02 14:28:27 257 x 10^3 cells/uL F 140.0-450.0 Reticulocytes/100 erythrocytes in Blood by Automated count 2023-05-02 14:28:27 3.19 % F 0.7-2.5 IRON SATURATION 2023-01-05 01:09:51 F Recollect - Hemolyzed specimen TIBC 2023-01-05 01:09:51 F Recollect - Hemolyzed specimen Iron [Mass/volume] in Serum or Plasma 2023-01-05 01:08:45 F Recollect - Hemolyzed specimen Iron binding capacity.unsaturated [Mass/volume] in Serum or Plasma 2023-01-05 01:08:45 F Recollect - Hemolyzed specimen HCT CALC HGBX3 2023-01-04 17:23:02 29.1 % F 42.0-52.0 Erythrocyte distribution width [Ratio] by Automated count 2023-01-04 17:22:19 16.7 % F 11.0-15.0 Erythrocytes [#/volume] in Blood by Automated count 2023-01-04 17:22:19 2.96 x 10'6 cells/uL F 4.6-6.2 Hematocrit [Volume Fraction] of Blood by Automated count 2023-01-04 17:22:19 31.2 % F 42.0-52.0 Hemoglobin [Mass/volume] in Blood 2023-01-04 17:22:19 9.7 g/dL F 14.0-18.0 MCH [Entitic mass] by Automated count 2023-01-04 17:22:19 32.7 pg F 27.0-31.0 MCV [Entitic volume] by Automated count 2023-01-04 17:22:19 105.2 fL F 80.0-100.0 MCHC [Mass/volume] by Automated count 2023-01-04 17:22:19 31.1 g/dL F 32.0-36.0 Platelets [#/volume] in Blood by Automated count 2023-01-04 17:22:19 173 x 10^3 cells/uL F 150.0-400.0 Reticulocytes/100 erythrocytes in Blood by Automated count 2023-01-04 17:22:19 2.61 % F 0.8-2.1 HCT CALC HGBX3 2022-08-17 16:26:20 24.9 % F 42.0-52.0 Erythrocytes [#/volume] in Blood by Automated count 2022-08-17 16:25:47 2.54 x 10'6 cells/uL F 4.6-6.2 Hematocrit [Volume Fraction] of Blood by Automated count 2022-08-17 16:25:47 26.2 % F 42.0-52.0 Hemoglobin [Mass/volume] in Blood 2022-08-17 16:25:47 8.3 g/dL F 14.0-18.0 MCH [Entitic mass] by Automated count 2022-08-17 16:25:47 32.5 pg F 27.0-31.0 ABSOLUTE RETIC COUNT 2022-08-17 16:25:47 0.062 x 10'6 cells/uL F 0.03-0.08 Erythrocyte distribution width [Ratio] by Automated count 2022-08-17 16:25:45 15.3 % F 11.0-15.0 MCV [Entitic volume] by Automated count 2022-08-17 16:25:45 103.2 fL F 80.0-100.0 MCHC [Mass/volume] by Automated count 2022-08-17 16:25:45 31.5 g/dL F 32.0-36.0 Platelets [#/volume] in Blood by Automated count 2022-08-17 16:25:45 136 x 10^3 cells/uL F 150.0-400.0 Reticulocytes/100 erythrocytes in Blood by Automated count 2022-08-17 16:25:45 2.43 % F 0.8-2.1 Comorbidities Description Draw Date Result/Unit Status Ref Range Result Comments Hemoglobin A1c/Hemoglobin.total in Blood 2022-08-17 18:54:40 5.8 %A1c F 0.0-5.6 FluidBP Description Draw Date Result/Unit Status Ref Range Result Comments Sodium [Moles/volume] in Serum or Plasma 2024-09-24 18:54:41 138 mEq/L F 132.0-146.0 Sodium [Moles/volume] in Serum or Plasma 2024-08-20 20:22:21 142 mEq/L F 132.0-146.0 Sodium [Moles/volume] in Serum or Plasma 2024-07-26 06:00:30 141 mEq/L F 132.0-146.0 Sodium [Moles/volume] in Serum or Plasma 2024-06-25 21:52:00 140 mEq/L F 132.0-146.0 Sodium [Moles/volume] in Serum or Plasma 2024-05-21 16:02:22 139 mEq/L F 132.0-146.0 Sodium [Moles/volume] in Serum or Plasma 2024-04-23 16:16:50 140 mEq/L F 132.0-146.0 Sodium [Moles/volume] in Serum or Plasma 2024-03-21 05:26:05 137 mEq/L F 132.0-146.0 Sodium [Moles/volume] in Serum or Plasma 2024-02-21 05:00:28 141 mEq/L F 132.0-146.0 Sodium [Moles/volume] in Serum or Plasma 2024-01-24 00:26:41 140 mEq/L F 132.0-146.0 Sodium [Moles/volume] in Serum or Plasma 2023-12-20 06:06:55 140 mEq/L F 132.0-146.0 Sodium [Moles/volume] in Serum or Plasma 2023-11-22 05:10:27 140 mEq/L F 132.0-146.0 Sodium [Moles/volume] in Serum or Plasma 2023-10-27 04:31:42 141 mEq/L F 132.0-146.0 Sodium [Moles/volume] in Serum or Plasma 2023-09-27 04:10:28 136 mEq/L F 132.0-146.0 Sodium [Moles/volume] in Serum or Plasma 2023-08-23 05:39:20 141 mEq/L F 132.0-146.0 Sodium [Moles/volume] in Serum or Plasma 2023-07-18 16:35:41 137 mEq/L F 132.0-146.0 Sodium [Moles/volume] in Serum or Plasma 2023-06-22 18:20:31 136 mEq/L F 132.0-146.0 Sodium [Moles/volume] in Serum or Plasma 2023-05-24 01:15:34 138 mEq/L F 132.0-146.0 Sodium [Moles/volume] in Serum or Plasma 2023-05-02 13:52:27 136 mEq/L F 132.0-146.0 Sodium [Moles/volume] in Serum or Plasma 2023-01-05 01:10:15 141 mEq/L F 132.0-146.0 Sodium [Moles/volume] in Serum or Plasma 2022-08-17 15:40:40 140 mEq/L F 132.0-146.0 General Description Draw Date Result/Unit Status Ref Range Result Comments Chloride [Moles/volume] in Serum or Plasma 2024-09-24 18:54:41 99 mEq/L F 99.0-109.0 Alanine aminotransferase [Enzymatic activity/volume] in Serum or Plasma 2024-09-24 15:50:19 13 U/L F 10.0-49.0 Aspartate aminotransferase [Enzymatic activity/volume] in Serum or Plasma 2024-09-24 15:50:19 17 U/L F 0.0-33.0 Chloride [Moles/volume] in Serum or Plasma 2024-08-20 20:22:21 102 mEq/L F 99.0-109.0 Alanine aminotransferase [Enzymatic activity/volume] in Serum or Plasma 2024-08-20 14:58:27 12 U/L F 10.0-49.0 Aspartate aminotransferase [Enzymatic activity/volume] in Serum or Plasma 2024-08-20 14:58:27 19 U/L F 0.0-33.0 Aluminum [Mass/volume] in Serum or Plasma 2024-07-28 15:23:11 10 ug/L F 0.0-9.0 Chloride [Moles/volume] in Serum or Plasma 2024-07-26 06:00:30 104 mEq/L F 99.0-109.0 Alanine aminotransferase [Enzymatic activity/volume] in Serum or Plasma 2024-07-25 19:08:09 16 U/L F 10.0-49.0 Aspartate aminotransferase [Enzymatic activity/volume] in Serum or Plasma 2024-07-25 19:08:09 22 U/L F 0.0-33.0 Chloride [Moles/volume] in Serum or Plasma 2024-06-25 21:52:00 103 mEq/L F 99.0-109.0 Alanine aminotransferase [Enzymatic activity/volume] in Serum or Plasma 2024-06-25 14:28:17 22 U/L F 10.0-49.0 Aspartate aminotransferase [Enzymatic activity/volume] in Serum or Plasma 2024-06-25 14:28:17 32 U/L F 0.0-33.0 Chloride [Moles/volume] in Serum or Plasma 2024-05-21 16:02:22 102 mEq/L F 99.0-109.0 Alanine aminotransferase [Enzymatic activity/volume] in Serum or Plasma 2024-05-21 13:36:14 17 U/L F 10.0-49.0 Aspartate aminotransferase [Enzymatic activity/volume] in Serum or Plasma 2024-05-21 13:36:14 26 U/L F 0.0-33.0 Chloride [Moles/volume] in Serum or Plasma 2024-04-23 16:16:50 101 mEq/L F 99.0-109.0 Alanine aminotransferase [Enzymatic activity/volume] in Serum or Plasma 2024-04-23 14:24:33 16 U/L F 10.0-49.0 Aspartate aminotransferase [Enzymatic activity/volume] in Serum or Plasma 2024-04-23 14:24:33 22 U/L F 0.0-33.0 Chloride [Moles/volume] in Serum or Plasma 2024-03-21 05:26:05 99 mEq/L F 99.0-109.0 Alanine aminotransferase [Enzymatic activity/volume] in Serum or Plasma 2024-03-20 15:43:49 18 U/L F 10.0-49.0 Aspartate aminotransferase [Enzymatic activity/volume] in Serum or Plasma 2024-03-20 15:43:49 27 U/L F 0.0-33.0 Chloride [Moles/volume] in Serum or Plasma 2024-02-21 05:00:28 103 mEq/L F 99.0-109.0 Alanine aminotransferase [Enzymatic activity/volume] in Serum or Plasma 2024-02-20 20:18:39 14 U/L F 10.0-49.0 Aspartate aminotransferase [Enzymatic activity/volume] in Serum or Plasma 2024-02-20 20:18:39 17 U/L F 0.0-33.0 Chloride [Moles/volume] in Serum or Plasma 2024-01-24 00:26:41 102 mEq/L F 99.0-109.0 Alanine aminotransferase [Enzymatic activity/volume] in Serum or Plasma 2024-01-23 15:41:23 9 U/L F 10.0-49.0 Aspartate aminotransferase [Enzymatic activity/volume] in Serum or Plasma 2024-01-23 15:41:23 16 U/L F 0.0-33.0 Chloride [Moles/volume] in Serum or Plasma 2023-12-20 06:06:55 100 mEq/L F 99.0-109.0 Alanine aminotransferase [Enzymatic activity/volume] in Serum or Plasma 2023-12-19 23:48:41 9 U/L F 10.0-49.0 Aspartate aminotransferase [Enzymatic activity/volume] in Serum or Plasma 2023-12-19 23:48:41 16 U/L F 0.0-33.0 Chloride [Moles/volume] in Serum or Plasma 2023-11-22 05:10:27 101 mEq/L F 99.0-109.0 Alanine aminotransferase [Enzymatic activity/volume] in Serum or Plasma 2023-11-21 16:00:34 9 U/L F 10.0-49.0 Aspartate aminotransferase [Enzymatic activity/volume] in Serum or Plasma 2023-11-21 16:00:34 14 U/L F 0.0-33.0 Chloride [Moles/volume] in Serum or Plasma 2023-10-27 04:31:42 102 mEq/L F 99.0-109.0 Alanine aminotransferase [Enzymatic activity/volume] in Serum or Plasma 2023-10-26 16:27:38 11 U/L F 10.0-49.0 Aspartate aminotransferase [Enzymatic activity/volume] in Serum or Plasma 2023-10-26 16:27:38 20 U/L F 0.0-33.0 Chloride [Moles/volume] in Serum or Plasma 2023-09-27 04:10:28 101 mEq/L F 99.0-109.0 Alanine aminotransferase [Enzymatic activity/volume] in Serum or Plasma 2023-09-26 19:30:07 14 U/L F 10.0-49.0 Aspartate aminotransferase [Enzymatic activity/volume] in Serum or Plasma 2023-09-26 19:30:07 23 U/L F 0.0-33.0 Chloride [Moles/volume] in Serum or Plasma 2023-08-23 05:39:20 103 mEq/L F 99.0-109.0 Alanine aminotransferase [Enzymatic activity/volume] in Serum or Plasma 2023-08-22 18:41:30 13 U/L F 10.0-49.0 Aspartate aminotransferase [Enzymatic activity/volume] in Serum or Plasma 2023-08-22 18:41:30 27 U/L F 0.0-33.0 Chloride [Moles/volume] in Serum or Plasma 2023-07-18 16:35:41 99 mEq/L F 99.0-109.0 Alanine aminotransferase [Enzymatic activity/volume] in Serum or Plasma 2023-07-18 16:35:41 19 U/L F 10.0-49.0 Aspartate aminotransferase [Enzymatic activity/volume] in Serum or Plasma 2023-07-18 16:35:41 35 U/L F 0.0-33.0 Chloride [Moles/volume] in Serum or Plasma 2023-06-22 18:20:31 98 mEq/L F 99.0-109.0 Alanine aminotransferase [Enzymatic activity/volume] in Serum or Plasma 2023-06-22 18:20:31 10 U/L F 10.0-49.0 Aspartate aminotransferase [Enzymatic activity/volume] in Serum or Plasma 2023-06-22 18:20:31 18 U/L F 0.0-33.0 Chloride [Moles/volume] in Serum or Plasma 2023-05-24 01:15:34 99 mEq/L F 99.0-109.0 Alanine aminotransferase [Enzymatic activity/volume] in Serum or Plasma 2023-05-24 01:15:34 9 U/L F 10.0-49.0 Aspartate aminotransferase [Enzymatic activity/volume] in Serum or Plasma 2023-05-24 01:15:34 14 U/L F 0.0-33.0 Aluminum [Mass/volume] in Serum or Plasma 2023-05-02 18:11:43 14 ug/L F 0.0-9.0 Chloride [Moles/volume] in Serum or Plasma 2023-05-02 13:52:27 95 mEq/L F 99.0-109.0 Alanine aminotransferase [Enzymatic activity/volume] in Serum or Plasma 2023-05-02 13:52:27 37 U/L F 10.0-49.0 Aspartate aminotransferase [Enzymatic activity/volume] in Serum or Plasma 2023-05-02 13:52:27 57 U/L F 0.0-33.0 Chloride [Moles/volume] in Serum or Plasma 2023-01-05 01:10:15 101 mEq/L F 99.0-109.0 Alanine aminotransferase [Enzymatic activity/volume] in Serum or Plasma 2023-01-05 01:10:15 26 U/L F 10.0-49.0 Aspartate aminotransferase [Enzymatic activity/volume] in Serum or Plasma 2023-01-05 01:08:45 F Recollect - Hemolyzed specimen Aluminum [Mass/volume] in Serum or Plasma 2023-01-04 18:42:06 11 ug/L F 0.0-9.0 Chloride [Moles/volume] in Serum or Plasma 2022-08-17 15:40:40 99 mEq/L F 99.0-109.0 Alanine aminotransferase [Enzymatic activity/volume] in Serum or Plasma 2022-08-17 15:40:40 9 U/L F 10.0-49.0 Aspartate aminotransferase [Enzymatic activity/volume] in Serum or Plasma 2022-08-17 15:40:40 10 U/L F 0.0-33.0 InfectionVaccination Description Draw Date Result/Unit Status Ref Range Result Comments Basophils/100 leukocytes in Blood by Automated count 2024-09-24 18:00:17 1.9 % F Monocytes/100 leukocytes in Blood by Automated count 2024-09-24 18:00:17 9.9 % F Eosinophils/100 leukocytes in Blood by Automated count 2024-09-24 18:00:17 5.1 % F Neutrophils [#/volume] in Blood by Automated count 2024-09-24 18:00:17 2311 Cells/uL F 2000.0-8800.0 Monocytes [#/volume] in Blood by Automated count 2024-09-24 18:00:17 318 Cells/uL F 0.0-1100.0 Basophils [#/volume] in Blood by Automated count 2024-09-24 18:00:17 61 Cells/uL F 0.0-400.0 Lymphocytes/100 leukocytes in Blood by Automated count 2024-09-24 18:00:15 11.1 % F Neutrophils/100 leukocytes in Blood by Automated count 2024-09-24 18:00:15 72 % F Leukocytes [#/volume] in Blood by Automated count 2024-09-24 18:00:15 3.2 x 10^3 cells/uL F 4.0-11.0 Lymphocytes [#/volume] in Blood by Automated count 2024-09-24 18:00:15 356 Cells/uL F 620.0-3660.0 Eosinophils [#/volume] in Blood by Automated count 2024-09-24 18:00:15 164 Cells/uL F 0.0-700.0 Neutrophils [#/volume] in Blood by Automated count 2024-08-20 15:20:18 1820 Cells/uL F 2000.0-8800.0 Monocytes [#/volume] in Blood by Automated count 2024-08-20 15:20:18 342 Cells/uL F 0.0-1100.0 Basophils [#/volume] in Blood by Automated count 2024-08-20 15:20:18 71 Cells/uL F 0.0-400.0 Eosinophils [#/volume] in Blood by Automated count 2024-08-20 15:20:18 190 Cells/uL F 0.0-700.0 Basophils/100 leukocytes in Blood by Automated count 2024-08-20 15:20:17 2.5 % F Neutrophils/100 leukocytes in Blood by Automated count 2024-08-20 15:20:17 64.3 % F Lymphocytes/100 leukocytes in Blood by Automated count 2024-08-20 15:20:17 14.4 % F Monocytes/100 leukocytes in Blood by Automated count 2024-08-20 15:20:17 12.1 % F Leukocytes [#/volume] in Blood by Automated count 2024-08-20 15:20:17 2.8 x 10^3 cells/uL F 4.0-11.0 Eosinophils/100 leukocytes in Blood by Automated count 2024-08-20 15:20:17 6.7 % F Lymphocytes [#/volume] in Blood by Automated count 2024-08-20 15:20:17 408 Cells/uL F 620.0-3660.0 Basophils/100 leukocytes in Blood by Automated count 2024-07-25 18:10:16 0.7 % F Neutrophils/100 leukocytes in Blood by Automated count 2024-07-25 18:10:16 70.2 % F Lymphocytes/100 leukocytes in Blood by Automated count 2024-07-25 18:10:16 13.8 % F Monocytes/100 leukocytes in Blood by Automated count 2024-07-25 18:10:16 10 % F Eosinophils/100 leukocytes in Blood by Automated count 2024-07-25 18:10:16 5.4 % F Leukocytes [#/volume] in Blood by Automated count 2024-07-25 18:10:16 4 x 10^3 cells/uL F 4.0-11.0 Neutrophils [#/volume] in Blood by Automated count 2024-07-25 18:10:16 2815 Cells/uL F 2000.0-8800.0 Lymphocytes [#/volume] in Blood by Automated count 2024-07-25 18:10:16 553 Cells/uL F 620.0-3660.0 Monocytes [#/volume] in Blood by Automated count 2024-07-25 18:10:16 401 Cells/uL F 0.0-1100.0 Basophils [#/volume] in Blood by Automated count 2024-07-25 18:10:16 28 Cells/uL F 0.0-400.0 Eosinophils [#/volume] in Blood by Automated count 2024-07-25 18:10:16 217 Cells/uL F 0.0-700.0 Basophils/100 leukocytes in Blood by Automated count 2024-06-25 14:35:11 0.3 % F Neutrophils/100 leukocytes in Blood by Automated count 2024-06-25 14:35:11 72.5 % F Lymphocytes/100 leukocytes in Blood by Automated count 2024-06-25 14:35:11 13 % F Monocytes/100 leukocytes in Blood by Automated count 2024-06-25 14:35:11 10.1 % F Eosinophils/100 leukocytes in Blood by Automated count 2024-06-25 14:35:11 4.1 % F Leukocytes [#/volume] in Blood by Automated count 2024-06-25 14:35:11 5.3 x 10^3 cells/uL F 4.0-11.0 Neutrophils [#/volume] in Blood by Automated count 2024-06-25 14:35:11 3864 Cells/uL F 2000.0-8800.0 Lymphocytes [#/volume] in Blood by Automated count 2024-06-25 14:35:11 693 Cells/uL F 620.0-3660.0 Monocytes [#/volume] in Blood by Automated count 2024-06-25 14:35:11 538 Cells/uL F 0.0-1100.0 Basophils [#/volume] in Blood by Automated count 2024-06-25 14:35:11 16 Cells/uL F 0.0-400.0 Eosinophils [#/volume] in Blood by Automated count 2024-06-25 14:35:11 219 Cells/uL F 0.0-700.0 Lymphocytes/100 leukocytes in Blood by Automated count 2024-05-21 14:54:20 15.2 % F Neutrophils [#/volume] in Blood by Automated count 2024-05-21 14:54:20 2669 Cell/uL F 2000.0-8800.0 Basophils/100 leukocytes in Blood by Automated count 2024-05-21 14:54:19 0.5 % F Neutrophils/100 leukocytes in Blood by Automated count 2024-05-21 14:54:19 70.8 % F Monocytes/100 leukocytes in Blood by Automated count 2024-05-21 14:54:19 8.9 % F Eosinophils/100 leukocytes in Blood by Automated count 2024-05-21 14:54:19 4.7 % F Leukocytes [#/volume] in Blood by Automated count 2024-05-21 14:54:19 3.8 x 10^3 cells/uL F 4.0-11.0 Lymphocytes [#/volume] in Blood by Automated count 2024-05-21 14:54:19 573 Cell/uL F 620.0-3660.0 Basophils [#/volume] in Blood by Automated count 2024-05-21 14:54:19 19 Cell/uL F 0.0-400.0 Monocytes [#/volume] in Blood by Automated count 2024-05-21 14:54:19 336 Cell/uL F 0.0-1100.0 Eosinophils [#/volume] in Blood by Automated count 2024-05-21 14:54:19 177 Cell/uL F 0.0-700.0 Lymphocytes/100 leukocytes in Blood by Automated count 2024-04-23 14:51:31 14.8 % F Neutrophils/100 leukocytes in Blood by Automated count 2024-04-23 14:51:31 71.7 % F Monocytes/100 leukocytes in Blood by Automated count 2024-04-23 14:51:31 9.5 % F Leukocytes [#/volume] in Blood by Automated count 2024-04-23 14:51:31 3.8 x 10^3 cells/uL F 4.0-11.0 Lymphocytes [#/volume] in Blood by Automated count 2024-04-23 14:51:31 567 Cell/uL F 620.0-3660.0 Neutrophils [#/volume] in Blood by Automated count 2024-04-23 14:51:31 2746 Cell/uL F 2000.0-8800.0 Monocytes [#/volume] in Blood by Automated count 2024-04-23 14:51:31 364 Cell/uL F 0.0-1100.0 Eosinophils [#/volume] in Blood by Automated count 2024-04-23 14:51:31 138 Cell/uL F 0.0-700.0 Basophils [#/volume] in Blood by Automated count 2024-04-23 14:51:31 15 Cell/uL F 0.0-400.0 Basophils/100 leukocytes in Blood by Automated count 2024-04-23 14:51:30 0.4 % F Eosinophils/100 leukocytes in Blood by Automated count 2024-04-23 14:51:30 3.6 % F Neutrophils/100 leukocytes in Blood by Automated count 2024-03-20 15:39:56 69.2 % F Basophils/100 leukocytes in Blood by Automated count 2024-03-20 15:39:56 0.6 % F Lymphocytes/100 leukocytes in Blood by Automated count 2024-03-20 15:39:56 15.7 % F Eosinophils/100 leukocytes in Blood by Automated count 2024-03-20 15:39:56 4.7 % F Monocytes/100 leukocytes in Blood by Automated count 2024-03-20 15:39:56 9.9 % F Leukocytes [#/volume] in Blood by Automated count 2024-03-20 15:39:56 4.2 x 10^3 cells/uL F 4.0-11.0 Lymphocytes [#/volume] in Blood by Automated count 2024-03-20 15:39:56 664 Cell/uL F 620.0-3660.0 Basophils [#/volume] in Blood by Automated count 2024-03-20 15:39:56 25 Cell/uL F 0.0-400.0 Neutrophils [#/volume] in Blood by Automated count 2024-03-20 15:39:56 2927 Cell/uL F 2000.0-8800.0 Monocytes [#/volume] in Blood by Automated count 2024-03-20 15:39:56 419 Cell/uL F 0.0-1100.0 Eosinophils [#/volume] in Blood by Automated count 2024-03-20 15:39:56 199 Cell/uL F 0.0-700.0 Basophils/100 leukocytes in Blood by Automated count 2024-02-20 17:31:42 0.4 % F Neutrophils/100 leukocytes in Blood by Automated count 2024-02-20 17:31:42 76 % F Lymphocytes/100 leukocytes in Blood by Automated count 2024-02-20 17:31:42 11.8 % F Eosinophils/100 leukocytes in Blood by Automated count 2024-02-20 17:31:42 3.5 % F Monocytes/100 leukocytes in Blood by Automated count 2024-02-20 17:31:42 8.4 % F Leukocytes [#/volume] in Blood by Automated count 2024-02-20 17:31:42 4 x 10^3 cells/uL F 4.0-11.0 Neutrophils [#/volume] in Blood by Automated count 2024-02-20 17:31:42 3040 Cell/uL F 2000.0-8800.0 Lymphocytes [#/volume] in Blood by Automated count 2024-02-20 17:31:42 472 Cell/uL F 620.0-3660.0 Basophils [#/volume] in Blood by Automated count 2024-02-20 17:31:42 16 Cell/uL F 0.0-400.0 Monocytes [#/volume] in Blood by Automated count 2024-02-20 17:31:42 336 Cell/uL F 0.0-1100.0 Eosinophils [#/volume] in Blood by Automated count 2024-02-20 17:31:42 140 Cell/uL F 0.0-700.0 Neutrophils/100 leukocytes in Blood by Automated count 2024-01-23 16:40:38 72.4 % F Lymphocytes/100 leukocytes in Blood by Automated count 2024-01-23 16:40:38 12.8 % F Basophils/100 leukocytes in Blood by Automated count 2024-01-23 16:40:38 0.8 % F Monocytes/100 leukocytes in Blood by Automated count 2024-01-23 16:40:38 8.5 % F Eosinophils/100 leukocytes in Blood by Automated count 2024-01-23 16:40:38 5.5 % F Leukocytes [#/volume] in Blood by Automated count 2024-01-23 16:40:38 4.4 x 10^3 cells/uL F 4.0-11.0 Neutrophils [#/volume] in Blood by Automated count 2024-01-23 16:40:38 3222 Cell/uL F 2000.0-8800.0 Lymphocytes [#/volume] in Blood by Automated count 2024-01-23 16:40:38 570 Cell/uL F 620.0-3660.0 Monocytes [#/volume] in Blood by Automated count 2024-01-23 16:40:38 378 Cell/uL F 0.0-1100.0 Eosinophils [#/volume] in Blood by Automated count 2024-01-23 16:40:38 245 Cell/uL F 0.0-700.0 Basophils [#/volume] in Blood by Automated count 2024-01-23 16:40:38 36 Cell/uL F 0.0-400.0 Basophils/100 leukocytes in Blood by Automated count 2023-12-19 18:27:50 0.7 % F Eosinophils [#/volume] in Blood by Automated count 2023-12-19 18:27:50 176 Cell/uL F 0.0-700.0 Lymphocytes/100 leukocytes in Blood by Automated count 2023-12-19 18:27:46 10.3 % F Neutrophils/100 leukocytes in Blood by Automated count 2023-12-19 18:27:46 77.7 % F Eosinophils/100 leukocytes in Blood by Automated count 2023-12-19 18:27:46 3.3 % F Monocytes/100 leukocytes in Blood by Automated count 2023-12-19 18:27:46 8.1 % F Leukocytes [#/volume] in Blood by Automated count 2023-12-19 18:27:46 5.3 x 10^3 cells/uL F 4.0-11.0 Lymphocytes [#/volume] in Blood by Automated count 2023-12-19 18:27:46 550 Cell/uL F 620.0-3660.0 Neutrophils [#/volume] in Blood by Automated count 2023-12-19 18:27:46 4149 Cell/uL F 2000.0-8800.0 Basophils [#/volume] in Blood by Automated count 2023-12-19 18:27:46 37 Cell/uL F 0.0-400.0 Monocytes [#/volume] in Blood by Automated count 2023-12-19 18:27:46 433 Cell/uL F 0.0-1100.0 Monocytes [#/volume] in Blood by Automated count 2023-11-21 22:00:34 422 Cell/uL F 0.0-1100.0 Basophils/100 leukocytes in Blood by Automated count 2023-11-21 22:00:32 1 % F Neutrophils/100 leukocytes in Blood by Automated count 2023-11-21 22:00:32 73.7 % F Lymphocytes/100 leukocytes in Blood by Automated count 2023-11-21 22:00:32 12.4 % F Eosinophils/100 leukocytes in Blood by Automated count 2023-11-21 22:00:32 2.9 % F Monocytes/100 leukocytes in Blood by Automated count 2023-11-21 22:00:32 10 % F Leukocytes [#/volume] in Blood by Automated count 2023-11-21 22:00:32 4.2 x 10^3 cells/uL F 4.0-11.0 Neutrophils [#/volume] in Blood by Automated count 2023-11-21 22:00:32 3110 Cell/uL F 2000.0-8800.0 Lymphocytes [#/volume] in Blood by Automated count 2023-11-21 22:00:32 523 Cell/uL F 620.0-3660.0 Basophils [#/volume] in Blood by Automated count 2023-11-21 22:00:32 42 Cell/uL F 0.0-400.0 Eosinophils [#/volume] in Blood by Automated count 2023-11-21 22:00:32 122 Cell/uL F 0.0-700.0 Neutrophils/100 leukocytes in Blood by Automated count 2023-10-26 18:24:32 77.9 % F Lymphocytes/100 leukocytes in Blood by Automated count 2023-10-26 18:24:32 10.4 % F Monocytes/100 leukocytes in Blood by Automated count 2023-10-26 18:24:32 7.1 % F Eosinophils/100 leukocytes in Blood by Automated count 2023-10-26 18:24:32 3.3 % F Leukocytes [#/volume] in Blood by Automated count 2023-10-26 18:24:32 5.7 x 10^3 cells/uL F 4.0-11.0 Basophils [#/volume] in Blood by Automated count 2023-10-26 18:24:32 74 Cell/uL F 0.0-400.0 Lymphocytes [#/volume] in Blood by Automated count 2023-10-26 18:24:32 589 Cell/uL F 620.0-3660.0 Basophils/100 leukocytes in Blood by Automated count 2023-10-26 18:24:30 1.3 % F Neutrophils [#/volume] in Blood by Automated count 2023-10-26 18:24:30 4409 Cell/uL F 2000.0-8800.0 Eosinophils [#/volume] in Blood by Automated count 2023-10-26 18:24:30 187 Cell/uL F 0.0-700.0 Monocytes [#/volume] in Blood by Automated count 2023-10-26 18:24:30 402 Cell/uL F 0.0-1100.0 Basophils/100 leukocytes in Blood by Automated count 2023-09-26 23:58:03 1 % F Neutrophils/100 leukocytes in Blood by Automated count 2023-09-26 23:58:03 74.4 % F Monocytes/100 leukocytes in Blood by Automated count 2023-09-26 23:58:03 7.3 % F Lymphocytes/100 leukocytes in Blood by Automated count 2023-09-26 23:58:03 13 % F Eosinophils/100 leukocytes in Blood by Automated count 2023-09-26 23:58:03 4.2 % F Leukocytes [#/volume] in Blood by Automated count 2023-09-26 23:58:03 5.4 x 10^3 cells/uL F 4.0-11.0 Lymphocytes [#/volume] in Blood by Automated count 2023-09-26 23:58:03 702 Cell/uL F 620.0-3660.0 Neutrophils [#/volume] in Blood by Automated count 2023-09-26 23:58:03 4018 Cell/uL F 2000.0-8800.0 Eosinophils [#/volume] in Blood by Automated count 2023-09-26 23:58:03 227 Cell/uL F 0.0-700.0 Monocytes [#/volume] in Blood by Automated count 2023-09-26 23:58:03 394 Cell/uL F 0.0-1100.0 Basophils [#/volume] in Blood by Automated count 2023-09-26 23:58:03 54 Cell/uL F 0.0-400.0 Basophils/100 leukocytes in Blood by Automated count 2023-08-22 18:58:31 1.1 % F Neutrophils/100 leukocytes in Blood by Automated count 2023-08-22 18:58:31 78.5 % F Lymphocytes/100 leukocytes in Blood by Automated count 2023-08-22 18:58:31 9.4 % F Monocytes/100 leukocytes in Blood by Automated count 2023-08-22 18:58:31 8 % F Eosinophils/100 leukocytes in Blood by Automated count 2023-08-22 18:58:31 3 % F Leukocytes [#/volume] in Blood by Automated count 2023-08-22 18:58:31 6.6 x 10^3 cells/uL F 4.0-11.0 Neutrophils [#/volume] in Blood by Automated count 2023-08-22 18:58:31 5165 Cell/uL F 2000.0-8800.0 Lymphocytes [#/volume] in Blood by Automated count 2023-08-22 18:58:31 619 Cell/uL F 620.0-3660.0 Basophils [#/volume] in Blood by Automated count 2023-08-22 18:58:31 72 Cell/uL F 0.0-400.0 Monocytes [#/volume] in Blood by Automated count 2023-08-22 18:58:31 526 Cell/uL F 0.0-1100.0 Eosinophils [#/volume] in Blood by Automated count 2023-08-22 18:58:31 197 Cell/uL F 0.0-700.0 Monocytes/100 leukocytes in Blood by Automated count 2023-07-18 16:26:36 9 % F Neutrophils/100 leukocytes in Blood by Automated count 2023-07-18 16:26:36 76.5 % F Lymphocytes [#/volume] in Blood by Automated count 2023-07-18 16:26:36 753 Cell/uL F 620.0-3660.0 Basophils [#/volume] in Blood by Automated count 2023-07-18 16:26:36 21 Cell/uL F 0.0-400.0 Monocytes [#/volume] in Blood by Automated count 2023-07-18 16:26:36 622 Cell/uL F 0.0-1100.0 Eosinophils [#/volume] in Blood by Automated count 2023-07-18 16:26:36 221 Cell/uL F 0.0-700.0 Basophils/100 leukocytes in Blood by Automated count 2023-07-18 16:26:35 0.3 % F Lymphocytes/100 leukocytes in Blood by Automated count 2023-07-18 16:26:35 10.9 % F Eosinophils/100 leukocytes in Blood by Automated count 2023-07-18 16:26:35 3.2 % F Leukocytes [#/volume] in Blood by Automated count 2023-07-18 16:26:35 6.9 x 10^3 cells/uL F 4.0-11.0 Neutrophils [#/volume] in Blood by Automated count 2023-07-18 16:26:35 5286 Cell/uL F 2000.0-8800.0 Basophils/100 leukocytes in Blood by Automated count 2023-06-23 00:09:21 0.5 % F Neutrophils/100 leukocytes in Blood by Automated count 2023-06-23 00:09:21 77.9 % F Lymphocytes/100 leukocytes in Blood by Automated count 2023-06-23 00:09:21 9.2 % F Eosinophils/100 leukocytes in Blood by Automated count 2023-06-23 00:09:21 5.1 % F Monocytes/100 leukocytes in Blood by Automated count 2023-06-23 00:09:21 7.4 % F Leukocytes [#/volume] in Blood by Automated count 2023-06-23 00:09:21 6.5 x 10^3 cells/uL F 4.0-11.0 Neutrophils [#/volume] in Blood by Automated count 2023-06-23 00:09:21 5040 Cell/uL F 2000.0-8800.0 Monocytes [#/volume] in Blood by Automated count 2023-06-23 00:09:21 479 Cell/uL F 0.0-1100.0 Lymphocytes [#/volume] in Blood by Automated count 2023-06-23 00:09:21 595 Cell/uL F 620.0-3660.0 Basophils [#/volume] in Blood by Automated count 2023-06-23 00:09:21 32 Cell/uL F 0.0-400.0 Eosinophils [#/volume] in Blood by Automated count 2023-06-23 00:09:21 330 Cell/uL F 0.0-700.0 Neutrophils/100 leukocytes in Blood by Automated count 2023-05-24 00:00:33 76.5 % F Basophils/100 leukocytes in Blood by Automated count 2023-05-24 00:00:33 0.6 % F Lymphocytes/100 leukocytes in Blood by Automated count 2023-05-24 00:00:33 11.8 % F Eosinophils/100 leukocytes in Blood by Automated count 2023-05-24 00:00:33 3.5 % F Leukocytes [#/volume] in Blood by Automated count 2023-05-24 00:00:33 6.4 x 10^3 cells/uL F 4.0-11.0 Monocytes/100 leukocytes in Blood by Automated count 2023-05-24 00:00:33 7.7 % F Neutrophils [#/volume] in Blood by Automated count 2023-05-24 00:00:33 4896 Cell/uL F 2000.0-8800.0 Lymphocytes [#/volume] in Blood by Automated count 2023-05-24 00:00:33 755 Cell/uL F 620.0-3660.0 Monocytes [#/volume] in Blood by Automated count 2023-05-24 00:00:33 493 Cell/uL F 0.0-1100.0 Eosinophils [#/volume] in Blood by Automated count 2023-05-24 00:00:33 224 Cell/uL F 0.0-700.0 Basophils [#/volume] in Blood by Automated count 2023-05-24 00:00:33 38 Cell/uL F 0.0-400.0 Basophils/100 leukocytes in Blood by Automated count 2023-05-02 14:28:27 0.5 % F Neutrophils/100 leukocytes in Blood by Automated count 2023-05-02 14:28:27 78.1 % F Lymphocytes/100 leukocytes in Blood by Automated count 2023-05-02 14:28:27 11.1 % F Monocytes/100 leukocytes in Blood by Automated count 2023-05-02 14:28:27 6.9 % F Eosinophils/100 leukocytes in Blood by Automated count 2023-05-02 14:28:27 3.3 % F Leukocytes [#/volume] in Blood by Automated count 2023-05-02 14:28:27 9 x 10^3 cells/uL F 4.0-11.0 Neutrophils [#/volume] in Blood by Automated count 2023-05-02 14:28:27 7068 Cell/uL F 2000.0-8800.0 Lymphocytes [#/volume] in Blood by Automated count 2023-05-02 14:28:27 1005 Cell/uL F 620.0-3660.0 Monocytes [#/volume] in Blood by Automated count 2023-05-02 14:28:27 624 Cell/uL F 0.0-1100.0 Basophils [#/volume] in Blood by Automated count 2023-05-02 14:28:27 45 Cell/uL F 0.0-400.0 Eosinophils [#/volume] in Blood by Automated count 2023-05-02 14:28:27 299 Cell/uL F 0.0-700.0 Basophils/100 leukocytes in Blood by Automated count 2023-01-04 17:22:19 0.3 % F Neutrophils/100 leukocytes in Blood by Automated count 2023-01-04 17:22:19 76.5 % F Lymphocytes/100 leukocytes in Blood by Automated count 2023-01-04 17:22:19 11.2 % F Eosinophils/100 leukocytes in Blood by Automated count 2023-01-04 17:22:19 5.3 % F Monocytes/100 leukocytes in Blood by Automated count 2023-01-04 17:22:19 6.8 % F Leukocytes [#/volume] in Blood by Automated count 2023-01-04 17:22:19 6.9 x 10^3 cells/uL F 4.5-11.0 Neutrophils [#/volume] in Blood by Automated count 2023-01-04 17:22:19 5301.45 Cell/uL F 2000.0-8800.0 Lymphocytes [#/volume] in Blood by Automated count 2023-01-04 17:22:19 776.16 Cell/uL F 1100.0-4800.0 Monocytes [#/volume] in Blood by Automated count 2023-01-04 17:22:19 471.24 Cell/uL F 0.0-1100.0 Basophils [#/volume] in Blood by Automated count 2023-01-04 17:22:19 20.79 Cell/uL F 0.0-400.0 Eosinophils [#/volume] in Blood by Automated count 2023-01-04 17:22:19 367.29 Cell/uL F 0.0-700.0 Basophils/100 leukocytes in Blood by Automated count 2022-08-17 16:25:47 0.6 % F Eosinophils/100 leukocytes in Blood by Automated count 2022-08-17 16:25:47 8.1 % F Leukocytes [#/volume] in Blood by Automated count 2022-08-17 16:25:47 7.6 x 10^3 cells/uL F 4.5-11.0 Lymphocytes [#/volume] in Blood by Automated count 2022-08-17 16:25:47 549.36 Cell/uL F 1100.0-4800.0 Monocytes [#/volume] in Blood by Automated count 2022-08-17 16:25:47 434.91 Cell/uL F 0.0-1100.0 Eosinophils [#/volume] in Blood by Automated count 2022-08-17 16:25:47 618.03 Cell/uL F 0.0-700.0 Neutrophils/100 leukocytes in Blood by Automated count 2022-08-17 16:25:45 78.4 % F Lymphocytes/100 leukocytes in Blood by Automated count 2022-08-17 16:25:45 7.2 % F Monocytes/100 leukocytes in Blood by Automated count 2022-08-17 16:25:45 5.7 % F Neutrophils [#/volume] in Blood by Automated count 2022-08-17 16:25:45 5981.92 Cell/uL F 2000.0-8800.0 Basophils [#/volume] in Blood by Automated count 2022-08-17 16:25:45 45.78 Cell/uL F 0.0-400.0 Phosphate [Mass/volume] in Urine MineralBone Disorder Description Draw Date Result/Unit Status Ref Range Result Comments CA CORRECTED 2024-10-09 11:29:35 9 mg/dL F CA/PHOS PRODUCT 2024-10-09 11:26:27 35.3 Calc F 21.0-53.0 CA*PO4 CORRCTD 2024-10-09 11:26:27 38.7 Calc F 21.0-53.0 Phosphate [Mass/volume] in Serum or Plasma 2024-10-09 08:21:31 4.3 mg/dL F 2.4-5.1 Calcium [Mass/volume] in Serum or Plasma 2024-10-09 08:21:31 8.2 mg/dL F 8.7-10.4 Parathyrin.intact [Mass/volume] in Serum or Plasma 2024-10-09 06:16:26 273 pg/mL F 18.0-80.0 Alkaline phosphatase [Enzymatic activity/volume] in Serum or Plasma 2024-09-24 15:50:19 126 U/L F 46.0-116.0 CA CORRECTED 2024-09-11 08:27:59 9.1 mg/dL F CA/PHOS PRODUCT 2024-09-11 08:26:39 43.2 Calc F 21.0-53.0 CA*PO4 CORRCTD 2024-09-11 08:26:39 47.3 Calc F 21.0-53.0 Calcium [Mass/volume] in Serum or Plasma 2024-09-11 08:23:25 8.3 mg/dL F 8.7-10.4 Phosphate [Mass/volume] in Serum or Plasma 2024-09-11 08:23:25 5.2 mg/dL F 2.4-5.1 Parathyrin.intact [Mass/volume] in Serum or Plasma 2024-09-10 16:39:15 329 pg/mL F 18.0-80.0 Alkaline phosphatase [Enzymatic activity/volume] in Serum or Plasma 2024-08-20 14:58:27 166 U/L F 46.0-116.0 CA CORRECTED 2024-08-07 08:55:43 8.8 mg/dL F CA/PHOS PRODUCT 2024-08-07 08:54:49 33.6 Calc F 21.0-53.0 CA*PO4 CORRCTD 2024-08-07 08:54:49 36.2 Calc F 21.0-53.0 Calcium [Mass/volume] in Serum or Plasma 2024-08-07 07:26:43 8.2 mg/dL F 8.7-10.4 Phosphate [Mass/volume] in Serum or Plasma 2024-08-07 02:23:29 4.1 mg/dL F 2.4-5.1 Parathyrin.intact [Mass/volume] in Serum or Plasma 2024-08-06 22:45:17 194 pg/mL F 18.0-80.0 Alkaline phosphatase [Enzymatic activity/volume] in Serum or Plasma 2024-07-25 19:08:09 164 U/L F 46.0-116.0 Alkaline phosphatase [Enzymatic activity/volume] in Serum or Plasma 2024-06-25 14:28:17 186 U/L F 46.0-116.0 Alkaline phosphatase [Enzymatic activity/volume] in Serum or Plasma 2024-05-21 13:36:14 217 U/L F 46.0-116.0 Alkaline phosphatase [Enzymatic activity/volume] in Serum or Plasma 2024-04-23 14:24:33 199 U/L F 46.0-116.0 Alkaline phosphatase [Enzymatic activity/volume] in Serum or Plasma 2024-03-20 15:43:49 177 U/L F 46.0-116.0 Alkaline phosphatase [Enzymatic activity/volume] in Serum or Plasma 2024-02-20 20:18:39 173 U/L F 46.0-116.0 Alkaline phosphatase [Enzymatic activity/volume] in Serum or Plasma 2024-01-23 15:41:15 169 U/L F 46.0-116.0 Alkaline phosphatase [Enzymatic activity/volume] in Serum or Plasma 2023-12-19 23:48:41 166 U/L F 46.0-116.0 Alkaline phosphatase [Enzymatic activity/volume] in Serum or Plasma 2023-11-21 16:00:34 214 U/L F 46.0-116.0 Alkaline phosphatase [Enzymatic activity/volume] in Serum or Plasma 2023-10-26 16:27:36 156 U/L F 46.0-116.0 Alkaline phosphatase [Enzymatic activity/volume] in Serum or Plasma 2023-09-26 19:30:07 239 U/L F 46.0-116.0 Alkaline phosphatase [Enzymatic activity/volume] in Serum or Plasma 2023-08-22 18:41:30 129 U/L F 46.0-116.0 Parathyrin.intact [Mass/volume] in Serum or Plasma 2023-07-19 05:13:37 225 pg/mL F 18.0-80.0 Alkaline phosphatase [Enzymatic activity/volume] in Serum or Plasma 2023-07-18 16:35:41 124 U/L F 46.0-116.0 Alkaline phosphatase [Enzymatic activity/volume] in Serum or Plasma 2023-06-22 18:20:31 131 U/L F 46.0-116.0 Alkaline phosphatase [Enzymatic activity/volume] in Serum or Plasma 2023-05-24 01:15:34 147 U/L F 46.0-116.0 CA CORRECTED 2023-05-03 03:53:52 9.6 mg/dL F CA/PHOS PRODUCT 2023-05-03 03:52:08 30.7 Calc F 21.0-53.0 CA*PO4 CORRCTD 2023-05-03 03:52:08 31.7 Calc F 21.0-53.0 Calcium [Mass/volume] in Serum or Plasma 2023-05-03 03:51:53 9.3 mg/dL F 8.7-10.4 Parathyrin.intact [Mass/volume] in Serum or Plasma 2023-05-02 23:45:52 69 pg/mL F 18.0-80.0 Alkaline phosphatase [Enzymatic activity/volume] in Serum or Plasma 2023-05-02 13:52:27 295 U/L F 46.0-116.0 Phosphate [Mass/volume] in Serum or Plasma 2023-05-02 13:52:27 3.3 mg/dL F 2.4-5.1 CA CORRECTED 2023-01-06 01:13:59 9.4 mg/dL F CA/PHOS PRODUCT 2023-01-05 04:15:51 61.6 Calc F 21.0-53.0 CA*PO4 CORRCTD 2023-01-05 04:15:51 65.8 Calc F 21.0-53.0 Calcium [Mass/volume] in Serum or Plasma 2023-01-05 04:14:10 8.8 mg/dL F 8.7-10.4 Alkaline phosphatase [Enzymatic activity/volume] in Serum or Plasma 2023-01-05 01:10:15 141 U/L F 46.0-116.0 Phosphate [Mass/volume] in Serum or Plasma 2023-01-05 01:10:15 7 mg/dL F 2.4-5.1 Parathyrin.intact [Mass/volume] in Serum or Plasma 2023-01-04 19:39:25 185 pg/mL F 18.0-80.0 CA CORRECTED 2022-08-18 08:57:49 8.8 mg/dL F CA/PHOS PRODUCT 2022-08-18 04:18:13 37 Calc F 21.0-53.0 CA*PO4 CORRCTD 2022-08-18 04:18:13 38.7 Calc F 21.0-53.0 Calcium [Mass/volume] in Serum or Plasma 2022-08-18 04:15:37 8.4 mg/dL F 8.7-10.4 Parathyrin.intact [Mass/volume] in Serum or Plasma 2022-08-17 16:35:38 138 pg/mL F 18.0-80.0 25-Hydroxyvitamin D3+25-Hydroxyvitamin D2 [Mass/volume] in Serum or Plasma 2022-08-17 15:57:39 40.7 ng/mL F 30.0-100.0 Alkaline phosphatase [Enzymatic activity/volume] in Serum or Plasma 2022-08-17 15:40:40 91 U/L F 46.0-116.0 Phosphate [Mass/volume] in Serum or Plasma 2022-08-17 15:40:40 4.4 mg/dL F 2.4-5.1 Nutrition Description Draw Date Result/Unit Status Ref Range Result Comments Potassium [Moles/volume] in Serum or Plasma 2024-09-24 18:54:41 4.1 mEq/L F 3.5-5.5 A/G RATIO 2024-09-24 15:51:13 0.8 Calc F 1.0-2.5 GLOBULIN 2024-09-24 15:51:13 3.6 g/dL F 0.9-5.0 Albumin [Mass/volume] in Serum or Plasma by Bromocresol green (BCG) dye binding method 2024-09-24 15:50:19 3 g/dL F 3.4-4.8 Bicarbonate [Moles/volume] in Serum or Plasma 2024-09-24 15:50:19 32 mEq/L F 20.0-31.0 Glucose [Mass/volume] in Serum or Plasma 2024-09-24 15:50:19 133 mg/dL F 70.0-99.0 Lactate dehydrogenase [Enzymatic activity/volume] in Serum or Plasma 2024-09-24 15:50:19 146 U/L F 120.0-246.0 Protein [Mass/volume] in Serum or Plasma 2024-09-24 15:50:19 6.6 g/dL F 5.7-8.2 Potassium [Moles/volume] in Serum or Plasma 2024-08-20 20:22:21 4 mEq/L F 3.5-5.5 A/G RATIO 2024-08-20 14:59:30 0.8 Calc F 1.0-2.5 GLOBULIN 2024-08-20 14:59:30 3.7 g/dL F 0.9-5.0 Protein [Mass/volume] in Serum or Plasma 2024-08-20 14:58:29 6.7 g/dL F 5.7-8.2 Albumin [Mass/volume] in Serum or Plasma by Bromocresol green (BCG) dye binding method 2024-08-20 14:58:27 3 g/dL F 3.4-4.8 Bicarbonate [Moles/volume] in Serum or Plasma 2024-08-20 14:58:27 29 mEq/L F 20.0-31.0 Glucose [Mass/volume] in Serum or Plasma 2024-08-20 14:58:27 118 mg/dL F 70.0-99.0 Lactate dehydrogenase [Enzymatic activity/volume] in Serum or Plasma 2024-08-20 14:58:27 157 U/L F 120.0-246.0 Potassium [Moles/volume] in Serum or Plasma 2024-07-26 06:00:30 5.1 mEq/L F 3.5-5.5 A/G RATIO 2024-07-25 19:09:15 0.9 Calc F 1.0-2.5 GLOBULIN 2024-07-25 19:09:15 3.6 g/dL F 0.9-5.0 Albumin [Mass/volume] in Serum or Plasma by Bromocresol green (BCG) dye binding method 2024-07-25 19:08:09 3.2 g/dL F 3.4-4.8 Bicarbonate [Moles/volume] in Serum or Plasma 2024-07-25 19:08:09 27 mEq/L F 20.0-31.0 Glucose [Mass/volume] in Serum or Plasma 2024-07-25 19:08:09 100 mg/dL F 70.0-99.0 Lactate dehydrogenase [Enzymatic activity/volume] in Serum or Plasma 2024-07-25 19:08:09 161 U/L F 120.0-246.0 Protein [Mass/volume] in Serum or Plasma 2024-07-25 19:08:09 6.8 g/dL F 5.7-8.2 Potassium [Moles/volume] in Serum or Plasma 2024-06-25 21:52:00 4.9 mEq/L F 3.5-5.5 A/G RATIO 2024-06-25 14:28:52 0.9 Calc F 1.0-2.5 GLOBULIN 2024-06-25 14:28:52 3.7 g/dL F 0.9-5.0 Albumin [Mass/volume] in Serum or Plasma by Bromocresol green (BCG) dye binding method 2024-06-25 14:28:17 3.2 g/dL F 3.4-4.8 Bicarbonate [Moles/volume] in Serum or Plasma 2024-06-25 14:28:17 27 mEq/L F 20.0-31.0 Glucose [Mass/volume] in Serum or Plasma 2024-06-25 14:28:17 122 mg/dL F 70.0-99.0 Lactate dehydrogenase [Enzymatic activity/volume] in Serum or Plasma 2024-06-25 14:28:17 172 U/L F 120.0-246.0 Protein [Mass/volume] in Serum or Plasma 2024-06-25 14:28:17 6.9 g/dL F 5.7-8.2 Potassium [Moles/volume] in Serum or Plasma 2024-05-21 16:02:22 5.2 mEq/L F 3.5-5.5 A/G RATIO 2024-05-21 13:36:20 0.9 Calc F 1.0-2.5 GLOBULIN 2024-05-21 13:36:20 3.5 g/dL F 0.9-5.0 Albumin [Mass/volume] in Serum or Plasma by Bromocresol green (BCG) dye binding method 2024-05-21 13:36:14 3.1 g/dL F 3.4-4.8 Bicarbonate [Moles/volume] in Serum or Plasma 2024-05-21 13:36:14 29 mEq/L F 20.0-31.0 Glucose [Mass/volume] in Serum or Plasma 2024-05-21 13:36:14 156 mg/dL F 70.0-99.0 Lactate dehydrogenase [Enzymatic activity/volume] in Serum or Plasma 2024-05-21 13:36:14 171 U/L F 120.0-246.0 Protein [Mass/volume] in Serum or Plasma 2024-05-21 13:36:14 6.6 g/dL F 5.7-8.2 Potassium [Moles/volume] in Serum or Plasma 2024-04-23 16:16:50 4 mEq/L F 3.5-5.5 A/G RATIO 2024-04-23 14:25:10 0.9 Calc F 1.0-2.5 GLOBULIN 2024-04-23 14:25:10 3.7 g/dL F 0.9-5.0 Albumin [Mass/volume] in Serum or Plasma by Bromocresol green (BCG) dye binding method 2024-04-23 14:24:33 3.2 g/dL F 3.4-4.8 Bicarbonate [Moles/volume] in Serum or Plasma 2024-04-23 14:24:33 30 mEq/L F 20.0-31.0 Glucose [Mass/volume] in Serum or Plasma 2024-04-23 14:24:33 165 mg/dL F 70.0-99.0 Lactate dehydrogenase [Enzymatic activity/volume] in Serum or Plasma 2024-04-23 14:24:33 174 U/L F 120.0-246.0 Protein [Mass/volume] in Serum or Plasma 2024-04-23 14:24:33 6.9 g/dL F 5.7-8.2 Potassium [Moles/volume] in Serum or Plasma 2024-03-21 05:26:05 4.5 mEq/L F 3.5-5.5 A/G RATIO 2024-03-20 15:44:38 0.9 Calc F 1.0-2.5 GLOBULIN 2024-03-20 15:44:38 3.6 g/dL F 0.9-5.0 Albumin [Mass/volume] in Serum or Plasma by Bromocresol green (BCG) dye binding method 2024-03-20 15:43:49 3.1 g/dL F 3.4-4.8 Bicarbonate [Moles/volume] in Serum or Plasma 2024-03-20 15:43:49 29 mEq/L F 20.0-31.0 Glucose [Mass/volume] in Serum or Plasma 2024-03-20 15:43:49 153 mg/dL F 70.0-99.0 Lactate dehydrogenase [Enzymatic activity/volume] in Serum or Plasma 2024-03-20 15:43:49 158 U/L F 120.0-246.0 Protein [Mass/volume] in Serum or Plasma 2024-03-20 15:43:49 6.7 g/dL F 5.7-8.2 Potassium [Moles/volume] in Serum or Plasma 2024-02-21 05:00:28 4.7 mEq/L F 3.5-5.5 GLOBULIN 2024-02-20 20:19:13 3.6 g/dL F 0.9-5.0 A/G RATIO 2024-02-20 20:19:13 0.8 Calc F 1.0-2.5 Albumin [Mass/volume] in Serum or Plasma by Bromocresol green (BCG) dye binding method 2024-02-20 20:18:39 3 g/dL F 3.4-4.8 Bicarbonate [Moles/volume] in Serum or Plasma 2024-02-20 20:18:39 29 mEq/L F 20.0-31.0 Glucose [Mass/volume] in Serum or Plasma 2024-02-20 20:18:39 203 mg/dL F 70.0-99.0 Lactate dehydrogenase [Enzymatic activity/volume] in Serum or Plasma 2024-02-20 20:18:39 143 U/L F 120.0-246.0 Protein [Mass/volume] in Serum or Plasma 2024-02-20 20:18:39 6.6 g/dL F 5.7-8.2 Potassium [Moles/volume] in Serum or Plasma 2024-01-24 00:26:41 4.3 mEq/L F 3.5-5.5 A/G RATIO 2024-01-23 15:41:45 0.8 Calc F 1.0-2.5 GLOBULIN 2024-01-23 15:41:45 3.6 g/dL F 0.9-5.0 Albumin [Mass/volume] in Serum or Plasma by Bromocresol green (BCG) dye binding method 2024-01-23 15:41:23 2.9 g/dL F 3.4-4.8 Bicarbonate [Moles/volume] in Serum or Plasma 2024-01-23 15:41:23 31 mEq/L F 20.0-31.0 Lactate dehydrogenase [Enzymatic activity/volume] in Serum or Plasma 2024-01-23 15:41:23 149 U/L F 120.0-246.0 Protein [Mass/volume] in Serum or Plasma 2024-01-23 15:41:23 6.5 g/dL F 5.7-8.2 Glucose [Mass/volume] in Serum or Plasma 2024-01-23 15:41:15 177 mg/dL F 70.0-99.0 Potassium [Moles/volume] in Serum or Plasma 2023-12-20 06:06:55 5.5 mEq/L F 3.5-5.5 A/G RATIO 2023-12-19 23:49:47 0.8 Calc F 1.0-2.5 GLOBULIN 2023-12-19 23:49:47 3.6 g/dL F 0.9-5.0 Albumin [Mass/volume] in Serum or Plasma by Bromocresol green (BCG) dye binding method 2023-12-19 23:48:41 2.9 g/dL F 3.4-4.8 Bicarbonate [Moles/volume] in Serum or Plasma 2023-12-19 23:48:41 33 mEq/L F 20.0-31.0 Glucose [Mass/volume] in Serum or Plasma 2023-12-19 23:48:41 107 mg/dL F 70.0-99.0 Lactate dehydrogenase [Enzymatic activity/volume] in Serum or Plasma 2023-12-19 23:48:41 150 U/L F 120.0-246.0 Protein [Mass/volume] in Serum or Plasma 2023-12-19 23:48:41 6.5 g/dL F 5.7-8.2 Potassium [Moles/volume] in Serum or Plasma 2023-11-22 05:10:27 4.4 mEq/L F 3.5-5.5 A/G RATIO 2023-11-21 16:00:40 0.8 Calc F 1.0-2.5 GLOBULIN 2023-11-21 16:00:40 3.5 g/dL F 0.9-5.0 Albumin [Mass/volume] in Serum or Plasma by Bromocresol green (BCG) dye binding method 2023-11-21 16:00:34 2.8 g/dL F 3.4-4.8 Bicarbonate [Moles/volume] in Serum or Plasma 2023-11-21 16:00:34 31 mEq/L F 20.0-31.0 Glucose [Mass/volume] in Serum or Plasma 2023-11-21 16:00:34 140 mg/dL F 70.0-99.0 Lactate dehydrogenase [Enzymatic activity/volume] in Serum or Plasma 2023-11-21 16:00:34 148 U/L F 120.0-246.0 Protein [Mass/volume] in Serum or Plasma 2023-11-21 16:00:34 6.3 g/dL F 5.7-8.2 Potassium [Moles/volume] in Serum or Plasma 2023-10-27 04:31:42 5.5 mEq/L F 3.5-5.5 A/G RATIO 2023-10-26 16:27:45 0.8 Calc F 1.0-2.5 GLOBULIN 2023-10-26 16:27:45 3.7 g/dL F 0.9-5.0 Albumin [Mass/volume] in Serum or Plasma by Bromocresol green (BCG) dye binding method 2023-10-26 16:27:38 2.9 g/dL F 3.4-4.8 Lactate dehydrogenase [Enzymatic activity/volume] in Serum or Plasma 2023-10-26 16:27:38 172 U/L F 120.0-246.0 Bicarbonate [Moles/volume] in Serum or Plasma 2023-10-26 16:27:36 27 mEq/L F 20.0-31.0 Glucose [Mass/volume] in Serum or Plasma 2023-10-26 16:27:36 92 mg/dL F 70.0-99.0 Protein [Mass/volume] in Serum or Plasma 2023-10-26 16:27:36 6.6 g/dL F 5.7-8.2 Potassium [Moles/volume] in Serum or Plasma 2023-09-27 04:10:28 7 mEq/L F 3.5-5.5 A/G RATIO 2023-09-26 19:31:15 0.9 Calc F 1.0-2.5 GLOBULIN 2023-09-26 19:31:15 3.6 g/dL F 0.9-5.0 Albumin [Mass/volume] in Serum or Plasma by Bromocresol green (BCG) dye binding method 2023-09-26 19:30:07 3.1 g/dL F 3.4-4.8 Bicarbonate [Moles/volume] in Serum or Plasma 2023-09-26 19:30:07 25 mEq/L F 20.0-31.0 Glucose [Mass/volume] in Serum or Plasma 2023-09-26 19:30:07 81 mg/dL F 70.0-99.0 Lactate dehydrogenase [Enzymatic activity/volume] in Serum or Plasma 2023-09-26 19:30:07 146 U/L F 120.0-246.0 Protein [Mass/volume] in Serum or Plasma 2023-09-26 19:30:07 6.7 g/dL F 5.7-8.2 Potassium [Moles/volume] in Serum or Plasma 2023-08-23 05:39:20 5.4 mEq/L F 3.5-5.5 A/G RATIO 2023-08-22 18:41:40 0.8 Calc F 1.0-2.5 GLOBULIN 2023-08-22 18:41:40 3.8 g/dL F 0.9-5.0 Albumin [Mass/volume] in Serum or Plasma by Bromocresol green (BCG) dye binding method 2023-08-22 18:41:30 3 g/dL F 3.4-4.8 Bicarbonate [Moles/volume] in Serum or Plasma 2023-08-22 18:41:30 31 mEq/L F 20.0-31.0 Glucose [Mass/volume] in Serum or Plasma 2023-08-22 18:41:30 127 mg/dL F 70.0-99.0 Lactate dehydrogenase [Enzymatic activity/volume] in Serum or Plasma 2023-08-22 18:41:30 189 U/L F 120.0-246.0 Protein [Mass/volume] in Serum or Plasma 2023-08-22 18:41:30 6.8 g/dL F 5.7-8.2 A/G RATIO 2023-07-18 16:36:35 0.9 Calc F 1.0-2.5 GLOBULIN 2023-07-18 16:36:35 3.8 g/dL F 0.9-5.0 Albumin [Mass/volume] in Serum or Plasma by Bromocresol green (BCG) dye binding method 2023-07-18 16:35:41 3.4 g/dL F 3.4-4.8 Bicarbonate [Moles/volume] in Serum or Plasma 2023-07-18 16:35:41 26 mEq/L F 20.0-31.0 Glucose [Mass/volume] in Serum or Plasma 2023-07-18 16:35:41 182 mg/dL F 70.0-99.0 Lactate dehydrogenase [Enzymatic activity/volume] in Serum or Plasma 2023-07-18 16:35:41 148 U/L F 120.0-246.0 Potassium [Moles/volume] in Serum or Plasma 2023-07-18 16:35:41 5.8 mEq/L F 3.5-5.5 Protein [Mass/volume] in Serum or Plasma 2023-07-18 16:35:41 7.2 g/dL F 5.7-8.2 GLOBULIN 2023-06-22 18:21:03 3.5 g/dL F 0.9-5.0 A/G RATIO 2023-06-22 18:21:03 0.9 Calc F 1.0-2.5 Albumin [Mass/volume] in Serum or Plasma by Bromocresol green (BCG) dye binding method 2023-06-22 18:20:31 3.3 g/dL F 3.4-4.8 Bicarbonate [Moles/volume] in Serum or Plasma 2023-06-22 18:20:31 26 mEq/L F 20.0-31.0 Glucose [Mass/volume] in Serum or Plasma 2023-06-22 18:20:31 172 mg/dL F 70.0-99.0 Potassium [Moles/volume] in Serum or Plasma 2023-06-22 18:20:31 6 mEq/L F 3.5-5.5 Lactate dehydrogenase [Enzymatic activity/volume] in Serum or Plasma 2023-06-22 18:20:31 160 U/L F 120.0-246.0 Protein [Mass/volume] in Serum or Plasma 2023-06-22 18:20:31 6.8 g/dL F 5.7-8.2 A/G RATIO 2023-05-24 01:16:01 0.9 Calc F 1.0-2.5 GLOBULIN 2023-05-24 01:16:01 3.3 g/dL F 0.9-5.0 Albumin [Mass/volume] in Serum or Plasma by Bromocresol green (BCG) dye binding method 2023-05-24 01:15:34 3 g/dL F 3.4-4.8 Bicarbonate [Moles/volume] in Serum or Plasma 2023-05-24 01:15:34 28 mEq/L F 20.0-31.0 Glucose [Mass/volume] in Serum or Plasma 2023-05-24 01:15:34 147 mg/dL F 70.0-99.0 Lactate dehydrogenase [Enzymatic activity/volume] in Serum or Plasma 2023-05-24 01:15:34 126 U/L F 120.0-246.0 Potassium [Moles/volume] in Serum or Plasma 2023-05-24 01:15:34 4.8 mEq/L F 3.5-5.5 Protein [Mass/volume] in Serum or Plasma 2023-05-24 01:15:34 6.3 g/dL F 5.7-8.2 A/G RATIO 2023-05-02 13:53:28 1 Calc F 1.0-2.5 GLOBULIN 2023-05-02 13:53:28 3.6 g/dL F 0.9-5.0 Albumin [Mass/volume] in Serum or Plasma by Bromocresol green (BCG) dye binding method 2023-05-02 13:52:27 3.6 g/dL F 3.4-4.8 Bicarbonate [Moles/volume] in Serum or Plasma 2023-05-02 13:52:27 29 mEq/L F 20.0-31.0 Glucose [Mass/volume] in Serum or Plasma 2023-05-02 13:52:27 174 mg/dL F 70.0-99.0 Lactate dehydrogenase [Enzymatic activity/volume] in Serum or Plasma 2023-05-02 13:52:27 122 U/L F 120.0-246.0 Potassium [Moles/volume] in Serum or Plasma 2023-05-02 13:52:27 4.5 mEq/L F 3.5-5.5 Protein [Mass/volume] in Serum or Plasma 2023-05-02 13:52:27 7.2 g/dL F 5.7-8.2 A/G RATIO 2023-01-05 01:11:09 1 Calc F 1.0-2.5 GLOBULIN 2023-01-05 01:11:09 3.4 g/dL F 0.9-5.0 Albumin [Mass/volume] in Serum or Plasma by Bromocresol green (BCG) dye binding method 2023-01-05 01:10:15 3.3 g/dL F 3.4-4.8 Bicarbonate [Moles/volume] in Serum or Plasma 2023-01-05 01:10:15 24 mEq/L F 20.0-31.0 Protein [Mass/volume] in Serum or Plasma 2023-01-05 01:10:15 6.7 g/dL F 5.7-8.2 Lactate dehydrogenase [Enzymatic activity/volume] in Serum or Plasma 2023-01-05 01:08:45 F Recollect - Hemolyzed specimen Potassium [Moles/volume] in Serum or Plasma 2023-01-05 01:08:45 F Recollect - Hemolyzed specimen A/G RATIO 2022-08-17 15:41:23 1.2 Calc F 1.0-2.5 GLOBULIN 2022-08-17 15:41:23 2.9 g/dL F 0.9-5.0 LDL-CHOLESTEROL 2022-08-17 15:41:23 42 mg/dL F 0.0-99.0 VLDL-CHOL(CALC) 2022-08-17 15:41:23 13 mg/dL F 0.0-29.0 CHOL/HDL RATIO 2022-08-17 15:41:23 3.4 Calc F 3.3-5.0 Albumin [Mass/volume] in Serum or Plasma by Bromocresol green (BCG) dye binding method 2022-08-17 15:40:40 3.5 g/dL F 3.4-4.8 Cholesterol [Mass/volume] in Serum or Plasma 2022-08-17 15:40:40 78 mg/dL F 0.0-199.0 Bicarbonate [Moles/volume] in Serum or Plasma 2022-08-17 15:40:40 32 mEq/L F 20.0-31.0 Lactate dehydrogenase [Enzymatic activity/volume] in Serum or Plasma 2022-08-17 15:40:40 138 U/L F 120.0-246.0 Glucose [Mass/volume] in Serum or Plasma 2022-08-17 15:40:40 177 mg/dL F 70.0-99.0 Potassium [Moles/volume] in Serum or Plasma 2022-08-17 15:40:40 4 mEq/L F 3.5-5.5 Protein [Mass/volume] in Serum or Plasma 2022-08-17 15:40:40 64 mg/dL F 0.0-149.0 Protein [Mass/volume] in Serum or Plasma 2022-08-17 15:40:40 6.4 g/dL F 5.7-8.2 Cholesterol in HDL [Mass/volume] in Serum or Plasma 2022-08-17 15:40:40 23 mg/dL F 40.0-60.0 Encounters No encounter information to report Immunizations Ordered Immunization Name Filled Immunization Name Date Status Comments Refusal Reason Influenza, MDCK, trivalent, preservative 2024-06-15 19:00:00 TST-PPD intradermal 2024-04-20 18:04:05 TST-PPD intradermal 2023-05-06 19:40:00 TST-PPD intradermal 2023-01-19 16:15:00 Hep B, adult 2022-08-16 19:27:07 Influenza Vaccination 2022-06-11 05:00:00 Hepatitis B Vaccination 2022-05-17 05:00:00 TB Skin Test 2022-04-21 05:00:00 Influenza Vaccination 2021-08-01 06:00:00 Pneumococcal Vaccination 2021-01-05 05:00:00 Plan of Treatment Planned Activity Provider Planned Date Details Commen ts Diagnostic Test Pending Jimmie Loucell 2023-09-15 06:00:00 Hemoglobin [Mass/volume] in Blood [code = 718-7] Diagnostic Test Pending [facility] 2023-05-03 05:00:00 Parathyrin.intact [Mass/volume] in Serum or Plasma [code = 2731-8] Diagnostic Test Pending [facility] 2024-10-03 06:00:00 Ferritin [Mass/volume] in Serum or Plasma [code = 2276-4] Diagnostic Test Pending [facility] 2023-05-01 14:46:53 Creatinine [Mass/volume] in Serum or Plasma [code = 2160-0] Diagnostic Test Pending [facility] 2023-05-01 14:48:18 Sodium [Moles/volume] in Serum or Plasma [code = 2951-2] Diagnostic Test Pending [facility] 2023-06-02 05:00:00 Alanine aminotransferase [Enzymatic activity/volume] in Serum or Plasma [code = 1742-6] Diagnostic Test Pending [facility] 2023-05-01 14:46:40 Aluminum [Mass/volume] in Serum or Plasma [code = 5574-9] Diagnostic Test Pending [facility] 2023-05-01 14:47:06 Glucose [Mass/volume] in Serum or Plasma [code = 2345-7] Diagnostic Test Pending [facility] 2023-05-01 14:46:31 Albumin [Mass/volume] in Serum or Plasma by Bromocresol green (BCG) dye binding method [code = 01116-0] Diagnostic Test Pending Jimmie Kobi [facility] 2024-09-28 19:57:26 In-Center Hemodialysis Treatment [code = TDF591] Diet Order [facility] May 17, 2023 Diet Calorie 25 kcal/kg Fluid Value 1000 mL/d Phosphorus Value 850 mg/d Potassium Value 2000 mg/d Protein Value 1.2 gm/kg Sodium Value 2000 mg/d Calculated Weight 71 kg dietary_diet_modification Carb Controlle d;
--- NOTE | 2024-10-19 13:10 | PM.IMHP ---
H&P: HPI History of Present Illness Date/Time: 10/19/24 13:10 Chief Complaint: Vomiting. Narrative: This is a pleasant 59-year-old male with history of gastritis, end-stage renal disease on hemodialysis, chronic anemia, combined systolic and diastolic congestive heart failure, coronary artery disease, hypertension, hyperlipidemia, type 2 diabetes mellitus, and other comorbidities who presented to the emergency department via EMS from [facility] for evaluation of vomiting. He is a fair historian and some of the following is supplemented via a review of his electronic medical records. He has not been feeling well since Saturday with reports of nonproductive cough, nausea, vomiting, and intermittent nonradiating, aching periumbilical pain (he has no complaints of abdominal pain at the time of my evaluation). This morning he reportedly had 1 episode of dark red emesis and he was sent in for evaluation. He also reports loose stools but states that is not unusual for him; he has diarrhea shortly after eating. With further questioning he also endorses occasional dysphagia with breads and meats. He denies fever, chills, sweats, sinus congestion, sore throat, epistaxis, chest pain, pleuritic pain, bloating, belching, melena, hematemesis, and concerns for aspiration. No known sick contacts. Of note, he is due for dialysis today. In the ED: SpO2 was 87% air. The remainder of his vital signs were stable. Labs are significant for WBC count of 10.3, hemoglobin 10.1, MCV 108.8, platelet 66, anion gap 14, BUN 46, creatinine 6.66, glucose 176, lipase 20. Respiratory panel was negative. Chest x-ray showed opacities in the right mid and lower lung zones which could be atelectasis or pneumonia. He received azithromycin 500 mg and ceftriaxone 1 g and he is being in setting for further treatment evaluation. Review of Systems Review of Systems: 12 systems were reviewed and are negative except for as per HPI. [facility] Past Medical History Medical History MRSA infection Clostridium difficile diarrhea Paroxysmal atrial fibrillation Transient atrial fibrillation following bypass surgery. Coronary artery disease History of multiple stents and 4 vessel bypass. Type 2 diabetes mellitus Hyperlipidemia End-stage renal disease on hemodialysis Combined systolic and diastolic congestive heart failure Diabetic neuropathy Anxiety and depression Obstructive sleep apnea does not use a CPAP Anemia of chronic disease Diabetic nephropathy Diabetic peripheral neuropathy Arthritis Surgical History Surgical History History of right below knee amputation History of five vessel coronary artery bypass (2018) [facility] History of cataract extraction with lens replacement History of coronary artery stent placement History of cardiac catheterization History of left below knee amputation History of amputation of toe left 5th toe 2013 small toe on the right amputated Family History Family History Sibling Patient's sister is Diabetes mellitus Sister Acute myocardial infarction Three brothers and 2 sisters History of blood clots Sister Abdominal aortic aneurysm Sister Dementia Brother COPD (chronic obstructive pulmonary disease) Brother Father Acute myocardial infarction, Onset Age: 65 Mother History of blood clots Hypertension, Onset Age: 80 Social History Social History Social History: Surrogate medical decision maker: Melodie Roca (niece) or Alejandra Murray (sister). Code status: Do not resuscitate. Smoking packs per day: 0.25 Smoking cigarettes per day: 5.0 Smoking status: Former smoker Alcohol intake: former Drinks per week: 2 Alcohol use details: Social alcohol use. Substance use: former Substance use type: marijuana Last use: 2019 Do You Feel Safe in your Home?: Yes Lack of Transportation: No Lack of Food: Never True Current Housing: I Have Housing Concerned About Future Housing: No Difficulty Paying Gas/Electric Bills: No Difficulty Paying for Meds: No Currently Unemployed: No Education: Don't Know Difficulty w/ Childcare or Family Care: No Additional living arrangements comments: [facility]. Additional occupation/education comments: Disabled. Spiritual care concerns: No Meds Home Medications and Allergies Home Medications ?Medication ?Instructions ?Recorded ?Confirmed ?Type ferrous sulfate 325 mg (65 mg 325 mg PO DAILY 06/01/20 10/19/24 History iron) tablet multivitamin 1 tablet PO DAILY 06/01/20 10/19/24 History nitroglycerin 0.4 mg sublingual 0.4 mg sublingual Q5-15M PRN Chest 06/01/20 10/19/24 History tablet Pain omega-3 fatty acids-fish oil 360 1 cap PO DAILY 06/01/20 10/19/24 History mg-1,200 mg capsule atorvastatin 40 mg tablet (Lipitor) 40 mg PO HS 12/23/20 10/19/24 History folic acid 1 mg tablet 1 mg PO DAILY 12/23/20 10/19/24 History gabapentin 100 mg tablet 200 mg PO HS 12/23/20 10/19/24 History sevelamer carbonate 800 mg tablet 800 mg PO TID 12/23/20 10/19/24 History tamsulosin 0.4 mg capsule (Flomax) 0.4 mg PO DAILY 12/23/20 10/19/24 History linagliptin 5 mg tablet (Tradjenta) 5 mg PO DAILY 01/13/23 10/19/24 History mirtazapine 15 mg tablet 15 mg PO HS 01/13/23 10/19/24 History sertraline 50 mg tablet 25 mg PO HS 01/13/23 10/19/24 History aspirin 81 mg tablet 81 mg PO DAILY 09/17/23 10/19/24 History meclizine 25 mg tablet 25 mg PO Q8H PRN Dizziness 09/17/23 10/19/24 History midodrine 10 mg tablet 10 mg PO BID 09/17/23 10/19/24 History acetaminophen 325 mg tablet 650 mg PO Q6H PRN Pain (Scale 10/29/23 10/19/24 History (Tylenol) Score 1-3) naloxone 4 mg/actuation nasal spray 1 spray intranasal Q3M PRN Opioid 10/29/23 10/19/24 History Overdose sennosides 8.6 mg-docusate sodium 1 tablet PO BID PRN Constipation 10/29/23 10/19/24 History 50 mg tablet (Senna Plus) guaifenesin 100 mg/5 mL oral syrup 600 mg PO Q8H PRN Cough 03/03/24 10/19/24 History lanolin alcohols-mineral 1 applic topical QPM 03/03/24 10/19/24 History oil-w.petrolatum-ceresin topical cream (Eucerin topical cream) diphenoxylate-atropine 2.5 2 tablet PO TID PRN Diarrhea #15 03/06/24 10/19/24 Rx mg-0.025 mg tablet (Lomotil) tabs oxycodone 5 mg tablet 5 mg PO Q4H PRN Pain (Scale Score 03/06/24 10/19/24 Rx 7-10) #15 tabs tramadol 50 mg tablet 50 mg PO Q4H PRN Pain (Scale Score 03/06/24 10/19/24 Rx 4-6) #15 tabs tizanidine 2 mg tablet 2 mg PO TID 10/19/24 10/19/24 History Allergies Allergy/AdvReac Type Severity Reaction Status Date / Time Penicillins Allergy Unknown Unknown Verified 10/19/24 16:36 bee venom protein (honey bee) Allergy Swelling Verified 10/19/24 16:36 Vital Signs Vital Signs - 24 hr 10/19/24 09:27 10/19/24 09:52 10/19/24 10:37 Temperature 97.7 F 97.4 F L Pulse Rate 69 66 Respiratory Rate 20 16 Blood Pressure 119/71 120/49 L Pulse Oximetry 86 L 100 100 Oxygen Delivery Room Air Nasal Cannula Oxygen Flow Rate 2 10/19/24 11:35 Temperature Pulse Rate 61 Respiratory Rate 16 Blood Pressure 116/78 Pulse Oximetry 99 Oxygen Delivery Oxygen Flow Rate Exam Narrative: General:?Chronically ill-appearing gentleman in the semi-Kirk position in bed. Weight: 93.4 kg. BMI: 29.5. HEENT:??PERRL, EOMI. Sclera anicteric. Tacky mucous membranes. Neck:??Supple. Respiratory:?Respirations are nonlabored and lungs are clear to auscultation. Cardiovascular:?Regular rate rhythm with normal S1-S2. Gastrointestinal:??Abdomen is soft, nontender, and nondistended with positive bowel sounds. No guarding or rebound tenderness. Skin:??Warm and dry. Generalized pallor. Extremities:??No cyanosis or clubbing. Right upper extremity fistula with palpable thrill and bruit. Status post bilateral [id number] amputations. Neurological:??Alert.? Cranial nerves 2-12 are grossly intact. Generalized weakness without gross focal findings. Psychiatric:?Appropriate mood and affect. H&P: Results Labs Labs: Short CBC 10/19/24 Range/Units 10:35 WBC 10.3 H (4.5-10.0) K/mm3 Hgb 10.1 L (14.0-18.0) g/dL Hct 32.1 L (42.0-52.0) % Plt Count 66 L (150-375) k/mm3 BMP 10/19/24 10:35 Sodium 141 Potassium 3.8 Chloride 97 L Carbon Dioxide 30 BUN 46 H D Creatinine 6.66 H Glucose 176 H Calcium 8.2 L Liver Function 10/19/24 Range/Units 10:35 Total Bilirubin 1.2 (0.2-1.3) mg/dL AST 24 (17-59) U/L ALT 17 (6-50) U/L Alkaline Phosphatase 158 H (38-126) U/L Albumin 3.4 L (3.5-5.1) g/dL Imaging Chest X-Ray 10/19/24 10:37 IMPRESSION: 1. Opacities in the right mid and lower lung zone which could represent atelectasis or pneumonia. 2. Unchanged retrocardiac opacity corresponding to region of chronic round atelectasis in the left lower lobe. Assessment and Plan Assessment and plan (1) Acute respiratory failure with hypoxia: Code(s): J96.01 - Acute respiratory failure with hypoxia Status: Acute (2) Pneumonia: Qualifiers: Laterality: left Lung location: unspecified part of lung Pneumonia type: due to unspecified organism Qualified Code(s): J18.9 - Pneumonia, unspecified organism Code(s): J18.9 - Pneumonia, unspecified organism Status: Acute (3) Dysphagia: Code(s): R13.10 - Dysphagia, unspecified Status: Acute (4) Hematemesis: Code(s): K92.0 - Hematemesis Status: Acute (5) Macrocytic anemia: Code(s): D53.9 - Nutritional anemia, unspecified Status: Acute (6) Thrombocytopenia: Code(s): D69.6 - Thrombocytopenia, unspecified Status: Acute (7) End-stage renal disease on hemodialysis: Code(s): N18.6 - End stage renal disease; Z99.2 - Dependence on renal dialysis Status: Acute (8) Combined systolic and diastolic congestive heart failure: Code(s): I50.40 - Unspecified combined systolic (congestive) and diastolic (congestive) heart failure Status: Acute (9) Type 2 diabetes mellitus: Code(s): E11.9 - Type 2 diabetes mellitus without complications Status: Acute Plan The patient presented to the emergency department with reports of feeling on well for the last several days including nausea, vomiting, hematemesis, and cough as detailed in HPI. Chest x-ray shows findings of possible right-sided pneumonia and he has been started on azithromycin and ceftriaxone. He also complained of abdominal discomfort earlier today however has no pain at the time my evaluation in his abdomen is benign. He is currently on 2 L nasal cannula with an SpO2 of 99% in oxygen will be weaned as tolerated. GI has been consulted given reports of hematemesis and dysphagia. Hemoglobin is stable on review of previous labs however it is noted that his platelet count has gone down is MCV has gone up over the last year and a half or so raising concern for possible blood dyscrasia and he should be referred to a photographic lithographer as an outpatient. No history of cirrhosis and liver was unremarkable on fairly recent imaging. Check iron studies, B12, and folate for completeness sake. Nephrology consulted for dialysis. He is euvolemic on exam; avoid over-hydration. Blood pressures have been running at the lower end of normal and will be monitored. Continue midodrine b.i.d.. Initiate sliding scale insulin, Accu-Cheks, and hypoglycemic protocol. His home medications will be reviewed and resumed as appropriate. Findings and treatment plan were discussed with the patient. Questions were solicited and answered to satisfaction. The patient's medical management will be taken over by the hospitalist team in a.m. Quality If No VTE Prophylaxis Answer both mechanical and pharmacologic: Reason no mechanical VTE proph: garett lower ext amputee Reason no pharmacologic proph: medical contraindication (reported hematemesis and thrombocytopenia) Hospitalist MIPS Advance Care Plan I have confirmed that the patient's Advanced Care Plan is present, code status is documented, or surrogate decision maker is listed in patient medical record.: Yes Medication Reconciliation I have utilized all available resources to obtain, update and review the patients current medications (includes all prescriptions, OTC, herbals, cannabis, and nutritional supplements).: Yes
[2024-10-19] MEDS: AZITHROMYCIN 500 MG/NS 250 ML 500 MG/250 ML BAG 250 MG IVPB (15:08)
--- NOTE | 2024-10-19 15:53 | ADMGEN ---
This patient, Kobi Salter, was admitted to [facility] Room 325-02. Patient/family oriented to hospital policies and general routines including ID bracelet, bed and alarms, visiting hours, pain management, procedures, bathroom and other care routines, personal items, smoking policy, room service/diet, and visiting hours. Information on how to activate the Rapid Response Team has been discussed. Patient/Family are encouraged to report perceived risks to care and to ask questions if they do not understand what they are told or what they should do. Report from Luz Marina in ER.
[2024-10-19 16:42] LABS: Hepatitis B Surface Antigen Negative (Negative)
[2024-10-19 16:59] LABS: Hepatitis B Surface Anti Res Negative
--- NOTE | 2024-10-19 18:31 | P.CONNP_ITS ---
Assessment and Plan Assessment and plan (1) ESRD (end stage renal disease): Code(s): N18.6 - End stage renal disease Status: Chronic Assessment and Plan: * HD today * continue M/W/F schedule while hospitalized * follow electrolytes, volume status, and clearance (2) Acute hypoxemic respiratory failure: Code(s): J96.01 - Acute respiratory failure with hypoxia Status: Acute Assessment and Plan: * hypoxia noted in ER * started on supplemental oxygen * component of volume overload(?) * concern for possible pneumonia (see #3) (3) Pneumonia: Qualifiers: Laterality: left Lung location: lower lobe of lung Pneumonia type: due to unspecified organism Qualified Code(s): J18.9 - Pneumonia, unspecified organism Code(s): J18.9 - Pneumonia, unspecified organism Status: Acute Assessment and Plan: * suspected etiology of #2 * resident of nursing facility -- hospital/facility acquired infection/pneumonia(?) * follow culture data * on antibiotics * follow clinical status (4) Hematemesis: Code(s): K92.0 - Hematemesis Status: Acute Assessment and Plan: * reported history * follow trend of H/H * GI consulted for further evaluation (5) Anemia: Code(s): D64.9 - Anemia, unspecified Status: Chronic Assessment and Plan: * due to ESRD and possibly worsened by #3 and/or #4 * anemia studies suggest iron deficiency * however, would hold IV venofer given acute infection (see #3) * Epogen with HD * follow trend of H/H (6) Diabetes mellitus with multiple complications: Code(s): E11.8 - Type 2 diabetes mellitus with unspecified complications Status: Chronic Assessment and Plan: * follow Accu-Cheks * glycemic control per hospitalist I will continue to follow the patient with you while he remains hospitalized and make further recommendations as deemed necessary. Thank you for allowing me to participate in the care of this patient. L History of Present Illness Reason for Consult Consult date: 10/19/24 Reason for consult: end stage renal disease Chief Complaint Chief complaint: Pneumonia, hypoxia, dialysis dependent History of Present Illness Narrative: The patient is a 59-year-old male with a past medical history as outlined below who presented to [facility] Emergency Room from his nursing facility for further evaluation of vomiting. The patient states that he has not been feeling well since last Saturday with complaints of nonproductive cough, nausea, vomiting, and intermittent abdominal pain. He states he abdominal pain is intermittent, nonradiating, and localized to the periumbilical area. He also reports some loose stools but this is somewhat of a chronic issue at baseline. The upon further questioning, he does state that he has occasional issues with dysphagia when he is eating as well. He denies any overt fevers, chills, diaphoresis, sore throat, chest pain, shortness of breath, bloating, melena, hematochezia, or hematemesis. Apparently, on the morning of admission, he had an episode of dark red emesis which was noted by nursing staff at his facility. EMS was called and he was subsequently transported to the emergency room for further assessment. Workup and evaluation emergency room was significant for the patient being hemodynamically stable and afebrile but he was noted be hypoxic with an oxygen saturation of 87% on room air. The routine blood tests were significant for aCBC with a white blood cell count of 10.3, hemoglobin 10.1, platelet count of 66 Along with a chemistry panel that demonstrated no critical electrolyte abnormalities but was consistent with his known history of end-stage renal disease. Viral panel for RSV, influenza, and COVID were negative and chest x- ray showed opacities in the right mid and lower lung zones which could be atelectasis or pneumonia. Given the concerns for pneumonia with his hypoxia, appropriate cultures were obtained and he was started on antibiotics and subsequently admitted to the hospital for further evaluation and therapy. Renal consultation was requested due to his end-stage renal disease. The patient normally dialyzes on a Saturday, Saturday, Saturday dialysis schedule at [facility] under the care of Dr. Jimmie Almodovar The patient did not go to his outpatient dialysis treatment today due to his nursing facility sending him to the ER for evaluation for the above-mentioned complaints.. There is some concern that his hypoxia may be partly related to fluid retention since his last dialysis treatment was on last Saturday. In spite of his hypoxia, he gives no over complaints of shortness of breath. Currently, at the time my visit, he is not in any acute distress and is tolerating dialysis at the time of my visit (seen on HD at 6:20PM). Review of Systems 2 Review of Systems: As per HPI. PMFSH Past Medical History Medical History MRSA infection Clostridium difficile diarrhea Paroxysmal atrial fibrillation Transient atrial fibrillation following bypass surgery. Coronary artery disease History of multiple stents and 4 vessel bypass. Type 2 diabetes mellitus Hyperlipidemia End-stage renal disease on hemodialysis Combined systolic and diastolic congestive heart failure Diabetic neuropathy Anxiety and depression Obstructive sleep apnea does not use a CPAP Anemia of chronic disease Diabetic nephropathy Diabetic peripheral neuropathy Arthritis Surgical History Surgical History History of right below knee amputation History of five vessel coronary artery bypass (2018) [facility] History of cataract extraction with lens replacement History of coronary artery stent placement History of cardiac catheterization History of left below knee amputation History of amputation of toe left 5th toe 2013 small toe on the right amputated Family History Family History Sibling Patient's sister is Diabetes mellitus Sister Acute myocardial infarction Three brothers and 2 sisters History of blood clots Sister Abdominal aortic aneurysm Sister Dementia Brother COPD (chronic obstructive pulmonary disease) Brother Father Acute myocardial infarction, Onset Age: 65 Mother History of blood clots Hypertension, Onset Age: 80 Social History Social History Social History: Surrogate medical decision maker: Melodie Roca (niece) or Alejandra Murray (sister). Code status: Do not resuscitate. Smoking packs per day: 0.25 Smoking cigarettes per day: 5.0 Smoking status: Former smoker Alcohol intake: former Drinks per week: 2 Alcohol use details: Social alcohol use. Substance use: former Substance use type: marijuana Last use: 2018 Do You Feel Safe in your Home?: Yes Lack of Transportation: No Lack of Food: Never True Current Housing: I Have Housing Concerned About Future Housing: No Difficulty Paying Gas/Electric Bills: No Difficulty Paying for Meds: No Currently Unemployed: No Education: Don't Know Difficulty w/ Childcare or Family Care: No Additional [facility] arrangements comments[facility]. Additional occupation/education comments: Disabled. Spiritual care concerns: No Meds Home Medications and Allergies Home Medications ?Medication ?Instructions ?Recorded ?Confirmed ?Type ferrous sulfate 325 mg (65 mg 325 mg PO DAILY 06/01/20 10/19/24 History iron) tablet multivitamin 1 tablet PO DAILY 06/01/20 10/19/24 History nitroglycerin 0.4 mg sublingual 0.4 mg sublingual Q5-15M PRN Chest 06/01/20 10/19/24 History tablet Pain omega-3 fatty acids-fish oil 360 1 cap PO DAILY 06/01/20 10/19/24 History mg-1,200 mg capsule atorvastatin 40 mg tablet (Lipitor) 40 mg PO HS 12/23/20 10/19/24 History folic acid 1 mg tablet 1 mg PO DAILY 12/23/20 10/19/24 History gabapentin 100 mg tablet 200 mg PO HS 12/23/20 10/19/24 History sevelamer carbonate 800 mg tablet 800 mg PO TID 12/23/20 10/19/24 History tamsulosin 0.4 mg capsule (Flomax) 0.4 mg PO DAILY 12/23/20 10/19/24 History linagliptin 5 mg tablet (Tradjenta) 5 mg PO DAILY 01/13/23 10/19/24 History mirtazapine 15 mg tablet 15 mg PO HS 01/13/23 10/19/24 History sertraline 50 mg tablet 25 mg PO HS 01/13/23 10/19/24 History aspirin 81 mg tablet 81 mg PO DAILY 09/17/23 10/19/24 History meclizine 25 mg tablet 25 mg PO Q8H PRN Dizziness 09/17/23 10/19/24 History midodrine 10 mg tablet 10 mg PO BID 09/17/23 10/19/24 History acetaminophen 325 mg tablet 650 mg PO Q6H PRN Pain (Scale 10/29/23 10/19/24 History (Tylenol) Score 1-3) naloxone 4 mg/actuation nasal spray 1 spray intranasal Q3M PRN Opioid 10/29/23 10/19/24 History Overdose sennosides 8.6 mg-docusate sodium 1 tablet PO BID PRN Constipation 10/29/23 10/19/24 History 50 mg tablet (Senna Plus) guaifenesin 100 mg/5 mL oral syrup 600 mg PO Q8H PRN Cough 03/03/24 10/19/24 History lanolin alcohols-mineral 1 applic topical QPM 03/03/24 10/19/24 History oil-w.petrolatum-ceresin topical cream (Eucerin topical cream) diphenoxylate-atropine 2.5 2 tablet PO TID PRN Diarrhea #15 03/06/24 10/19/24 Rx mg-0.025 mg tablet (Lomotil) tabs oxycodone 5 mg tablet 5 mg PO Q4H PRN Pain (Scale Score 03/06/24 10/19/24 Rx 7-10) #15 tabs tramadol 50 mg tablet 50 mg PO Q4H PRN Pain (Scale Score 03/06/24 10/19/24 Rx 4-6) #15 tabs tizanidine 2 mg tablet 2 mg PO TID 10/19/24 10/19/24 History Allergies Allergy/AdvReac Type Severity Reaction Status Date / Time Penicillins Allergy Unknown Unknown Verified 10/22/24 13:43 bee venom protein (honey bee) Allergy Swelling Verified 10/22/24 13:43 Vital Signs Vital Signs Temp Pulse Resp BP Pulse Ox O2 Del Method O2 Flow Rate 10/19/24 17:47 97.9 F 61 18 107/50 L 10/19/24 16:20 99 Room Air 10/19/24 15:21 98.0 F 62 18 119/42 L 22 L 10/19/24 13:31 98 F 70 18 127/45 L 99 10/19/24 12:31 58 L 20 120/51 L 100 10/19/24 11:35 61 16 116/78 99 10/19/24 11:01 98.1 F 63 17 121/40 L 100 10/19/24 10:37 97.4 F L 66 16 120/49 L 100 10/19/24 09:52 100 Nasal Cannula 2 10/19/24 09:27 97.7 F 69 20 119/71 86 L Room Air Exam 2 Narrative: GENERAL APPEARANCE: chronically ill-appearing male in no acute distress HEENT: normocephalic, atraumatic, normal conjunctiva and sclera, nares patient NECK: no lymphadenopathy, thyromegaly, or JVD MOUTH: normal lips, teeth, and gums CARDIOVASCULAR: RRR, normal S1 and S2, no rub detected RESPIRATORY: clear anteriorly ABDOMEN: soft, nontender, nondistended, positive bowel sounds present EXTREMITIES: no evidence of cyanosis, clubbing, or edema; s/p bilateral AKAs NEUROLOGICAL: alert and oriented x 3; CN II - XII intact bilaterally; no focal deficits noted Results Lab Results 10/26/24 07:08 10/26/24 07:08 Lab results: Most recent lab results Calcium 8.2 mg/dL (8.4-10.2) L 10/19/24 10:35
[2024-10-19] MEDS: EPOETIN ALFA-EPBX 10,000 UNITS/ML VIAL 10000 UNITS IV PUSH (19:38)
[2024-10-19] MEDS: PANTOPRAZOLE SODIUM IV 40 MG VIAL IV PUSH (22:16)
[2024-10-19] MEDS: ATORVASTATIN 40 MG TABLET PO (22:16)
[2024-10-19] MEDS: SERTRALINE HCL 25 MG TABLET PO (22:16)
[2024-10-19] MEDS: GABAPENTIN 100 MG CAPSULE PO (22:16)
[2024-10-19] MEDS: MIRTAZAPINE 15 MG TABLET PO (22:16)
[2024-10-19 22:44] LABS: Glucose Point of Care 111 mg/dl (65-105)
[2024-10-20 03:41] LABS: MRSA (PCR) NOT DETECTED (NOT DETECTE)
[2024-10-20 05:36] VITALS: BP 122/55; PULSE 52; RESP 18; TEMP 36.2; O2SAT 97
[2024-10-20 06:38] LABS: Hemoglobin 8.9 g/dL (14.0-18.0); Immature Platelet Fraction Pct 6.3 % (0.9-11.2); Mean Corpuscular HGB Conc 30.7 g/dl (32-36); Mean Corpuscular Hemoglobin 33.5 pg (26-34); Mean Platelet Volume 11.3 fl (7.4-10.4); Platelet Count Result 65 k/mm3 (150-375); Red Blood Count 2.66 M/mm3 (4.6-6.20); Red Cell Distribution Width 16.3 % (11.5-14.5); White Blood Count 5.5 K/mm3 (4.5-10.0)
[2024-10-20 06:48] LABS: Anion Gap 7 mmol/L (4-12); Blood Urea Nitrogen 21 mg/dL (9-20); Calcium 8.8 mg/dL (8.4-10.2); Carbon Dioxide 28 mmol/L (22-30); Chloride 104 mmol/L (98-107); Estimated CRCL calculation 21 ml/min; Estimated Glomerular Filt Rate 18; Glucose 108 mg/dL (65-110); Potassium 3.7 mmol/L (3.4-5.0); Sodium 139 mmol/L (137-145)
[2024-10-20 07:15] LABS: Iron 32 ug/dL (49-181)
[2024-10-20 07:24] LABS: Percent Iron Saturation 17 % (20-50)
[2024-10-20 07:53] LABS: Folic Acid > 20.0 ng/mL (2.76->20)
[2024-10-20 08:00] VITALS: BP 122/46; PULSE 60; TEMP 36.3; O2SAT 94
[2024-10-20 08:04] LABS: Glucose Point of Care 101 mg/dl (65-105)
[2024-10-20] MEDS: MIDODRINE HCL 10 MG TABLET PO ×2 (08:19→13:52)
[2024-10-20] MEDS: SITagliptin PHOSPHATE 100 MG TABLET PO (08:19)
[2024-10-20] MEDS: TAMSULOSIN HCL 0.4 MG CAPSULE PO (08:22)
[2024-10-20] MEDS: TIZANIDINE HCL 2 MG TABLET PO (08:23)
[2024-10-20] MEDS: OMEGA 3 POLYUNSAT FATTY ACIDS 1 GM CAP PO (08:23)
[2024-10-20] MEDS: SEVELAMER CARBONATE 800 MG TABLET PO ×3 (08:23→17:08)
[2024-10-20] MEDS: FOLIC ACID 1 MG TABLET PO (08:23)
[2024-10-20] MEDS: FERROUS SULFATE 325 MG TABLET DR BY MOUTH (08:23)
[2024-10-20] MEDS: AZITHROMYCIN 500 MG/NS 250 ML 500 MG/250 ML BAG 250 MG IVPB (09:57)
[2024-10-20 11:13] LABS: Glucose Point of Care 131 mg/dl (65-105)
--- NOTE | 2024-10-20 11:16 | PM.PNNEP ---
Progress Note: A&P Assessment and Plan (1) ESRD (end stage renal disease): Code(s): N18.6 - End stage renal disease Status: Chronic Assessment and Plan: HD tomorrow continue M/W/F schedule while hospitalized follow electrolytes, volume status, and clearance (2) Acute hypoxemic respiratory failure: Code(s): J96.01 - Acute respiratory failure with hypoxia Status: Acute Assessment and Plan: clinical improvement noted if not resolving hypoxia noted on admission weaned off supplemental oxygen volume status okay concern for possible pneumonia (see #3) (3) Pneumonia: Qualifiers: Laterality: left Lung location: lower lobe of lung Pneumonia type: due to unspecified organism Qualified Code(s): J18.9 - Pneumonia, unspecified organism Code(s): J18.9 - Pneumonia, unspecified organism Status: Acute Assessment and Plan: suspected etiology of #2 resident of nursing facility -- hospital/facility acquired infection/pneumonia(?) follow culture data on antibiotics follow clinical status (4) Hematemesis: Code(s): K92.0 - Hematemesis Status: Acute Assessment and Plan: reported history follow trend of H/H GI consulted for further evaluation (5) Anemia: Code(s): D64.9 - Anemia, unspecified Status: Chronic Assessment and Plan: due to ESRD and possibly worsened by #3 and/or #4 anemia studies suggest iron deficiency however, would hold IV venofer given acute infection (see #3) Epogen with HD follow trend of H/H (6) Diabetes mellitus with multiple complications: Code(s): E11.8 - Type 2 diabetes mellitus with unspecified complications Status: Chronic Assessment and Plan: follow Accu-Cheks glycemic control per hospitalist Will continue to follow. Subjective Date/time seen: 10/20/24 11:16 Interval history: Follow-up for end stage renal disease on hemodialysis. Tolerated dialysis treatment late yesterday afternoon/early evening without any issues or problems; no apparent distress noted at the time of my visit; no acute complaints voiced other that he is hungry; no issues/events overnight or earlier this morning. Exam Narrative: General: WD/WN male in NAD Heart: normal S1 and S2; no rub Lungs: clear anteriorly Abdomen: soft, nontender, nondistended, positive bowel sounds; s/p bilateral BKAs Extremities: no cyanosis or clubbing; no edema Skin: warm and dry Objective Data Vital Signs Vital Signs: Vital Signs Temp Pulse Resp BP Pulse Ox O2 Del Method 10/20/24 08:00 97.3 F L 60 122/46 L 94 10/20/24 05:36 97.2 F L 52 L 18 122/55 L 97 10/19/24 22:00 97.0 F L 52 L 16 112/48 L 93 10/19/24 21:19 97.7 F 56 L 16 114/54 L 10/19/24 21:16 57 L 121/59 L 10/19/24 21:02 54 L 114/53 L 10/19/24 20:45 56 L 114/58 L 10/19/24 20:30 54 L 119/56 L 10/19/24 20:16 57 L 121/59 L 10/19/24 20:16 57 L 121/59 L 10/19/24 20:15 55 L 116/60 10/19/24 20:00 Room Air 10/19/24 20:00 58 L 127/60 10/19/24 19:45 57 L 117/56 L 10/19/24 19:30 63 126/56 L 10/19/24 19:15 56 L 111/57 L 10/19/24 19:00 53 L 99/56 L 10/19/24 18:45 53 L 101/50 L 10/19/24 18:30 52 L 96/50 L 10/19/24 18:19 107/50 L 10/19/24 18:15 53 L 99/53 L 10/19/24 18:00 58 L 109/58 L 10/19/24 17:58 55 L 111/54 L 10/19/24 17:47 97.9 F 61 18 107/50 L 10/19/24 16:20 99 Room Air 10/19/24 15:21 98.0 F 62 18 119/42 L 22 L Intake/Output Intake/Output: Intake & Output 10/17/24 10/18/24 10/19/24 10/20/24 23:59 23:59 23:59 23:59 Intake Total 982.9 0 Output Total 1000 Balance -17.1 0 Meds/Results Medications: Active Medications Generic Name Dose Route Start Last Admin Trade Name Freq PRN Reason Stop Dose Admin Acetaminophen 650 mg 10/19/24 13:21 Acetaminophen 325 Mg Tablet PO Q4H PRN Mild Pain (1-3) or Fever Hydrocodone Bitart/Acetaminophen 1 tab 10/19/24 13:21 Hydrocodone/Acetaminophen (*Crx) 5-325 Mg Tablet PO Q4H PRN Pain Rated 4-6 Atorvastatin Calcium 40 mg 10/19/24 21:00 10/19/24 22:16 Atorvastatin 40 Mg Tablet PO 40 mg HS [facility] Administration Dextrose 12.5 gm 10/19/24 19:21 Dextrose 50% 25 Gm/50 Ml Syringe IV PUSH PRN PRN Hypoglycemia Protocol Diphenoxylate HCl/Atropine 2 tablet 10/19/24 19:25 Diphenoxylate/Atropine (*Crx) 2.5 Mg Tablet PO TID PRN Diarrhea Ferrous Sulfate 325 mg 10/20/24 09:00 10/20/24 08:23 Ferrous Sulfate [address] BY MOUTH 325 mg DAILY [facility] Administration Fish Oil 1 gm 10/20/24 09:00 10/20/24 08:23 [place] 3 Polyunsat Fatty Acids 1 Gm Cap PO 1 gm DAILY [facility] Administration Folic Acid 1 mg 10/20/24 09:00 10/20/24 08:23 Folic Acid 1 Mg Tablet PO 1 mg DAILY [facility] Administration Gabapentin 100 mg 10/19/24 21:00 10/19/24 22:16 Gabapentin 100 Mg Capsule PO 100 mg HS [facility] Administration Glucagon 1 mg 10/19/24 19:21 Glucagon For Inj 1 Mg Vial IM PRN PRN Hypoglycemia Protocol Glucose 15 gm 10/19/24 19:21 Glucose Oral Gel 15 Gm Of Glucse In 37.5 Gm Tube PO PRN PRN Hypoglycemia Protocol Guaifenesin 600 mg 10/19/24 20:13 Guaifenesin 200 Mg/10 Ml Udc PO Q8H PRN Cough Ceftriaxone Sodium 1 gm in 50 mls @ 100 mls/hr 10/20/24 09:00 10/20/24 08:23 Rocephin 1 Gm/Ns 50 Ml IVPB 100 mls/hr Q24H [facility] Administration Azithromycin 500 mg in 250 mls @ 250 mls/hr 10/20/24 09:00 10/20/24 09:57 Zithromax IVPB 250 mls/hr Q24H [facility] Administration Albumin Human 50 mls @ 999 mls/hr 10/19/24 15:40 Albutein IVPB 03/19/25 15:39 Q10M PRN HYPOTENSION Dextrose 1,000 mls @ 100 mls/hr 10/19/24 19:21 Dextrose 5% 1,000 Ml IVPB PRN PRN Hypoglycemia Protocol Insulin Aspart 3 - 6 units 10/20/24 08:00 10/20/24 11:16 Insulin Aspart (*Bkc) 100 Units/Ml SUB-Q Not Given TIDWM [facility] Protocol Insulin Aspart 1 - 3 units 10/19/24 21:00 10/19/24 22:43 Insulin Aspart (*Bkc) 100 Units/Ml SUB-Q Not Given HS [facility] Protocol Midodrine 10 mg 10/20/24 08:00 10/20/24 08:19 Midodrine Hcl 10 Mg Tablet PO 10 mg BID@0800,1400 [facility] Administration Mirtazapine 15 mg 10/19/24 21:00 10/19/24 22:16 Mirtazapine 15 Mg Tablet PO 15 mg HS [facility] Administration Multi-Ingred Cream/Lotion/Oil/Oint 1 applic 10/20/24 18:00 Eucerin Cream 120 Gm Jar TOPICAL QPM [facility] Senna/Docusate Sodium 1 tab 10/19/24 19:25 Senna/Docusate Sodium Tablet PO BID PRN Constipation Sertraline HCl 25 mg 10/19/24 21:00 10/19/24 22:16 Sertraline Hcl 25 Mg Tablet PO 25 mg HS [facility] Administration Sevelamer Carbonate 800 mg 10/20/24 09:00 10/20/24 12:34 Sevelamer Carbonate 800 Mg Tablet PO 800 mg TID [facility] Administration Sitagliptin Phosphate 100 mg 10/20/24 09:00 10/20/24 08:19 Sitagliptin Phosphate 100 Mg Tablet PO 100 mg QAM [facility] Administration Tamsulosin HCl 0.4 mg 10/20/24 09:00 10/20/24 08:22 Tamsulosin Hcl 0.4 Mg Capsule PO 0.4 mg DAILY [facility] Administration Tizanidine HCl 2 mg 10/20/24 09:00 10/20/24 12:34 Tizanidine Hcl 2 Mg Tablet PO Not Given TID [facility] Tramadol HCl 50 mg 10/19/24 19:25 Tramadol Hcl (*Crx) 50 Mg Tablet PO Q4H PRN Pain (Scale Score 4-6) Radiology Results: ITS Impressions Chest X-Ray 10/19/24 10:37 IMPRESSION: 1. Opacities in the right mid and lower lung zone which could represent atelectasis or pneumonia. 2. Unchanged retrocardiac opacity corresponding to region of chronic round atelectasis in the left lower lobe. Labs Labs: Laboratory Tests 10/20/24 06:27 10/20/24 06:27 Calcium 8.8 Magnesium 2.0 Iron 32 L TIBC 188 L % Saturation 17 L Ferritin 702.00 H Vitamin B12 755.0 Folate > 20.0 H TSH (Reflex) 1.270
[2024-10-20 11:26] VITALS: BMI 27.6
[2024-10-20 14:00] VITALS: BP 111/53; PULSE 56; TEMP 36.5; O2SAT 93
--- NOTE | 2024-10-20 14:50 | P.PNIM_ITS ---
Progress Note: A&P Assessment and Plan (1) Acute respiratory failure with hypoxia: Code(s): J96.01 - Acute respiratory failure with hypoxia Status: Acute Assessment and Plan: * Chest x-ray suggesting pneumonia * currently on room air * patient was given azithromycin and and Rocephin, we will transition to Levaquin oral renally dosed (2) Pneumonia: Qualifiers: Laterality: left Lung location: unspecified part of lung Pneumonia type: due to unspecified organism Qualified Code(s): J18.9 - Pneumonia, unspecified organism Code(s): J18.9 - Pneumonia, unspecified organism Status: Acute Assessment and Plan: * chest x-ray suggesting pneumonia * continue Levaquin * check mycoplasma, urine strep, urine Legionella * MRSA was negative (3) Dysphagia: Code(s): R13.10 - Dysphagia, unspecified Status: Acute Assessment and Plan: * bedside swallow ordered * patient was noted to have dysphagia with bread and meat during initial assessment * currently on diabetic diet (4) Hematemesis: Code(s): K92.0 - Hematemesis Status: Acute Assessment and Plan: * patient reported 1 episode of hemoptysis * GI consulted * hemoglobin stable (5) Macrocytic anemia: Code(s): D53.9 - Nutritional anemia, unspecified Status: Acute Assessment and Plan: * hemoglobin 8.9 * likely secondary to end-stage renal disease (6) Thrombocytopenia: Code(s): D69.6 - Thrombocytopenia, unspecified Status: Acute Assessment and Plan: * platelet count 65 * continue to trend * likely secondary to end-stage renal disease (7) End-stage renal disease on hemodialysis: Code(s): N18.6 - End stage renal disease; Z99.2 - Dependence on renal dialysis Status: Acute Assessment and Plan: * nephrology consulted * plan for dialysis today * potassium 3.7, creatinine 3.44, EGFR 18 (8) Type 2 diabetes mellitus: Code(s): E11.9 - Type 2 diabetes mellitus without complications Status: Acute Assessment and Plan: * Blood sugars ranging 111-131 * Hgb A1C 5.2 on 02/08/2023 * will recheck hemoglobin A1c * Accu checks AC/HS * moderate dose SSI ordered * hypoglycemic protocol in place * Diabetic diet ordered * hold sitagliptin for now Time Spent With Patient Time with patient: Greater than 35 minutes Subjective Date/time seen: 10/20/24 14:50 Interval history: Interval history: This is a 59-year-old male with a significant past medical history of gastritis, end-stage renal disease on hemodialysis, chronic anemia, combined systolic and diastolic congestive heart failure, coronary artery disease, hypertension, hyperlipidemia, type 2 diabetes mellitus on 10/19/2024 with nausea and vomiting from [facility] [place]. Workup in the hospital included a respiratory panel which was negative. Chest x-ray which showed opacities in the right mid and lower lung zones consistent with pneumonia. Initial labs showed a white blood cell count of 10.3, hemoglobin 10.1, platelet count 66, anion gap 14, creatinine 6.66. He was started on Rocephin and azithromycin. 10/20/2024 antibiotic changed to Levaquin oral. patient also noted to have hemoptysis x1 episode prior to coming in. patient had dialysis yesterday. Subjective: patient denies any new complaints today. Labs reviewed. Review of Systems Review of Systems: All systems reviewed & are unremarkable except as noted in HPI and below Exam Narrative: General: In no acute distress, well nourished Head: atraumatic, no encephalopathy Eyes: PERRLA, sclera clear ENT: moist mucous membranes, nasal passages clear Neck: supple, no JVD, no adenopathy, trachea midline Cardiac: Normal S1 and S2. gallop noted. No murmur or friction rubs, peripheral pulses intact. Respiratory: Lungs clear to auscultation, no adventitious lung sounds, currently on room air Gastrointestinal: soft, non-distended, non-tender, normoactive bowel sounds. : Dialysis patient, right upper extremity fistula with positive bruit and thrill Extremities: Bilateral below-knee amputations Skin: clean, dry, intact. No wounds or lesions. Neuro: Alert and oriented x4, cranial nerves intact, no neuro deficits. Psych: normal mood, normal affect, interactive Objective Data Vital Signs Vital Signs: Vital Signs - 24 hr 10/19/24 15:21 10/19/24 16:20 10/19/24 17:47 Temperature 98.0 F 97.9 F Pulse Rate 62 61 Respiratory Rate 18 18 Blood Pressure 119/42 L 107/50 L Pulse Oximetry 22 L 99 Oxygen Delivery Room Air 10/19/24 17:58 10/19/24 18:00 10/19/24 18:15 Temperature Pulse Rate 55 L 58 L 53 L Respiratory Rate Blood Pressure 111/54 L 109/58 L 99/53 L Pulse Oximetry Oxygen Delivery 10/19/24 18:19 10/19/24 18:30 10/19/24 18:45 Temperature Pulse Rate 52 L 53 L Respiratory Rate Blood Pressure 107/50 L 96/50 L 101/50 L Pulse Oximetry Oxygen Delivery 10/19/24 19:00 10/19/24 19:15 10/19/24 19:30 Temperature Pulse Rate 53 L 56 L 63 Respiratory Rate Blood Pressure 99/56 L 111/57 L 126/56 L Pulse Oximetry Oxygen Delivery 10/19/24 19:45 10/19/24 20:00 10/19/24 20:00 Temperature Pulse Rate 57 L 58 L Respiratory Rate Blood Pressure 117/56 L 127/60 Pulse Oximetry Oxygen Delivery Room Air 10/19/24 20:15 10/19/24 20:16 10/19/24 20:16 Temperature Pulse Rate 55 L 57 L 57 L Respiratory Rate Blood Pressure 116/60 121/59 L 121/59 L Pulse Oximetry Oxygen Delivery 10/19/24 20:30 10/19/24 20:45 10/19/24 21:02 Temperature Pulse Rate 54 L 56 L 54 L Respiratory Rate Blood Pressure 119/56 L 114/58 L 114/53 L Pulse Oximetry Oxygen Delivery 10/19/24 21:16 10/19/24 21:19 10/19/24 22:00 Temperature 97.7 F 97.0 F L Pulse Rate 57 L 56 L 52 L Respiratory Rate 16 16 Blood Pressure 121/59 L 114/54 L 112/48 L Pulse Oximetry 93 Oxygen Delivery 10/20/24 05:36 10/20/24 08:00 10/20/24 14:00 Temperature 97.2 F L 97.3 F L 97.7 F Pulse Rate 52 L 60 56 L Respiratory Rate 18 Blood Pressure 122/55 L 122/46 L 111/53 L Pulse Oximetry 97 94 93 Oxygen Delivery Intake/Output Intake/Output: Intake & Output 10/17/24 10/18/24 10/19/24 10/20/24 23:59 23:59 23:59 23:59 Intake Total 982.9 0 Output Total 1000 Balance -17.1 0 Meds/Results Medications: Active Medications Generic Name Dose Route Start Last Admin Trade Name Freq PRN Reason Stop Dose Admin Acetaminophen 650 mg 10/19/24 13:21 Acetaminophen 325 Mg Tablet PO Q4H PRN Mild Pain (1-3) or Fever Hydrocodone Bitart/Acetaminophen 1 tab 10/19/24 13:21 Hydrocodone/Acetaminophen (*Crx) 5-325 Mg Tablet PO Q4H PRN Pain Rated 4-6 Atorvastatin Calcium 40 mg 10/19/24 21:00 10/19/24 22:16 Atorvastatin 40 Mg Tablet PO 40 mg HS [facility] Administration Dextrose 12.5 gm 10/19/24 19:21 Dextrose 50% 25 Gm/50 Ml Syringe IV PUSH PRN PRN Hypoglycemia Protocol Diphenoxylate HCl/Atropine 2 tablet 10/19/24 19:25 Diphenoxylate/Atropine (*Crx) 2.5 Mg Tablet PO TID PRN Diarrhea Ferrous Sulfate 325 mg 10/20/24 09:00 10/20/24 08:23 Ferrous Sulfate [address] BY MOUTH 325 mg DAILY [facility] Administration Fish Oil 1 gm 10/20/24 09:00 10/20/24 08:23 [place] 3 Polyunsat Fatty Acids 1 Gm Cap PO 1 gm DAILY [facility] Administration Folic Acid 1 mg 10/20/24 09:00 10/20/24 08:23 Folic Acid 1 Mg Tablet PO 1 mg DAILY [facility] Administration Gabapentin 100 mg 10/19/24 21:00 10/19/24 22:16 Gabapentin 100 Mg Capsule PO 100 mg HS [facility] Administration Glucagon 1 mg 10/19/24 19:21 Glucagon For Inj 1 Mg Vial IM PRN PRN Hypoglycemia Protocol Glucose 15 gm 10/19/24 19:21 Glucose Oral Gel 15 Gm Of Glucse In 37.5 Gm Tube PO PRN PRN Hypoglycemia Protocol Guaifenesin 600 mg 10/19/24 20:13 Guaifenesin 200 Mg/10 Ml Udc PO Q8H PRN Cough Albumin Human 50 mls @ 999 mls/hr 10/19/24 15:40 Albutein IVPB 11/18/24 15:39 Q10M PRN HYPOTENSION Dextrose 1,000 mls @ 100 mls/hr 10/19/24 19:21 Dextrose 5% 1,000 Ml IVPB PRN PRN Hypoglycemia Protocol Insulin Aspart 3 - 6 units 10/20/24 08:00 10/20/24 11:16 Insulin Aspart (*Bkc) 100 Units/Ml SUB-Q Not Given TIDWM [facility] Protocol Insulin Aspart 1 - 3 units 10/19/24 21:00 10/19/24 22:43 Insulin Aspart (*Bkc) 100 Units/Ml SUB-Q Not Given HS [facility] Protocol Levofloxacin 750 mg 10/20/24 21:00 Levofloxacin 750 Mg Tablet PO 10/20/24 21:01 ONCE ONE Levofloxacin 500 mg 10/22/24 21:00 Levofloxacin 500 Mg Tablet PO 10/22/24 21:01 ONCE ONE Midodrine 10 mg 10/20/24 08:00 10/20/24 13:52 Midodrine Hcl 10 Mg Tablet PO 10 mg BID@0800,1400 [facility] Administration Mirtazapine 15 mg 10/19/24 21:00 10/19/24 22:16 Mirtazapine 15 Mg Tablet PO 15 mg HS [facility] Administration Multi-Ingred Cream/Lotion/Oil/Oint 1 applic 10/20/24 18:00 Eucerin Cream 120 Gm Jar TOPICAL QPM [facility] Senna/Docusate Sodium 1 tab 10/19/24 19:25 Senna/Docusate Sodium Tablet PO BID PRN Constipation Sertraline HCl 25 mg 10/19/24 21:00 10/19/24 22:16 Sertraline Hcl 25 Mg Tablet PO 25 mg HS [facility] Administration Sevelamer Carbonate 800 mg 10/20/24 09:00 10/20/24 12:34 Sevelamer Carbonate 800 Mg Tablet PO 800 mg TID [facility] Administration Sitagliptin Phosphate 100 mg 10/20/24 09:00 10/20/24 08:19 Sitagliptin Phosphate 100 Mg Tablet PO 100 mg QAM [facility] Administration Tamsulosin HCl 0.4 mg 10/20/24 09:00 10/20/24 08:22 Tamsulosin Hcl 0.4 Mg Capsule PO 0.4 mg DAILY [facility] Administration Tizanidine HCl 2 mg 10/20/24 09:00 10/20/24 12:34 Tizanidine Hcl 2 Mg Tablet PO Not Given TID [facility] Tramadol HCl 50 mg 10/19/24 19:25 Tramadol Hcl (*Crx) 50 Mg Tablet PO Q4H PRN Pain (Scale Score 4-6) Radiology Results: ITS Impressions Chest X-Ray 10/19/24 10:37 IMPRESSION: 1. Opacities in the right mid and lower lung zone which could represent atelectasis or pneumonia. 2. Unchanged retrocardiac opacity corresponding to region of chronic round atelectasis in the left lower lobe. Labs Labs: Laboratory Results - last 24 hr 10/19/24 10/19/24 10/20/24 10:34 22:20 02:26 WBC RBC Hgb Hct MCV MCH MCHC RDW Plt Count MPV % Immature Plt Fraction Sodium Potassium Chloride Carbon Dioxide Anion Gap BUN Creatinine Estim Creat Clear Calc Estimated GFR Glucose POC Capillary Glucose 111 H Calcium Magnesium Iron TIBC % Saturation Ferritin Vitamin B12 Folate TSH (Reflex) Nasal MRSA (PCR) Not detected Hep Bs Antigen Negative Hep Bs Antibody Negative 10/20/24 10/20/24 10/20/24 06:27 08:01 11:11 WBC 5.5 RBC 2.66 L Hgb 8.9 L Hct 29.0 L MCV 109.0 H MCH 33.5 MCHC 30.7 L RDW 16.3 H Plt Count 65 L MPV 11.3 H % Immature Plt Fraction 6.3 Sodium 139 Potassium 3.7 Chloride 104 Carbon Dioxide 28 Anion Gap 7 BUN 21 H D Creatinine 3.44 H Estim Creat Clear Calc 21 Estimated GFR 18 L Glucose 108 POC Capillary Glucose 101 131 H Calcium 8.8 Magnesium 2.0 Iron 32 L TIBC 188 L % Saturation 17 L Ferritin 702.00 H Vitamin B12 755.0 Folate > 20.0 H TSH (Reflex) 1.270 Nasal MRSA (PCR) Hep Bs Antigen Hep Bs Antibody Quality VTE Prophylaxis VTE prophylaxis: mechanical ordered
[2024-10-20 16:23] LABS: Hemoglobin A1C 5.6 % (<5.7)
[2024-10-20 16:38] LABS: Glucose Point of Care 90 mg/dl (65-105)
[2024-10-20] MEDS: EUCERIN CREAM 120 GM JAR 1 APPLIC TOPICAL (17:08)
--- NOTE | 2024-10-20 17:41 | P.CONGI_ITS ---
Assessment and Plan Assessment and plan (1) Iron deficiency anemia: Code(s): D50.9 - Iron deficiency anemia, unspecified Status: Acute Assessment and Plan: the patient has anemia which is be multifactorial, mainly due to his ESRD, but due to iron deficiency there is a need to rule out gastroduodenal sources such as peptic ulcer disease, large hiatal hernia with [place] ulcers, esophagitis or, less likely gastric neoplasm. Will also obtain biopsies to rule out H pylori which can be also associated with iron deficiency anemia. On the other hand, a colonoscopy is also indicated to rule out colorectal neoplasia. As per Nephrology, he will need to be dialyzed while hospitalized, Wednesdays and Fridays. We are planning on doing the colonoscopy after his dialysis, around noontime. GI Consult Note Consult date/time: 10/20/24 17:41 HPI: Kobi Salter is a 59 year old male With multiple medical problems, including end-stage renal disease on hemodialysis, CHF, coronary artery disease status post CABG in the past, hypertension, diabetes and status post left below- knee amputation. He was admitted on 10/19, complaining of coffee-ground emesis. The patient denies having had prior episodes, melena and is not complaining of abdominal pain or further vomiting. The reason for consultation is the finding of iron deficiency anemia with the following labs: Hemoglobin 8.9, iron saturation percentage 17%. He does recall having had a colonoscopy many years ago but does not know specific findings. Review of Systems 2 Review of Systems: All systems reviewed & are unremarkable except as noted in HPI and below [facility] Past Medical History Medical History MRSA infection Clostridium difficile diarrhea Paroxysmal atrial fibrillation Transient atrial fibrillation following bypass surgery. Coronary artery disease History of multiple stents and 4 vessel bypass. Type 2 diabetes mellitus Hyperlipidemia End-stage renal disease on hemodialysis Combined systolic and diastolic congestive heart failure Diabetic neuropathy Anxiety and depression Obstructive sleep apnea does not use a CPAP Anemia of chronic disease Diabetic nephropathy Diabetic peripheral neuropathy Arthritis Surgical History Surgical History History of right below knee amputation History of five vessel coronary artery bypass (2018) [facility] History of cataract extraction with lens replacement History of coronary artery stent placement History of cardiac catheterization History of left below knee amputation History of amputation of toe left 5th toe 2013 small toe on the right amputated Family History Family History Sibling Patient's sister is Diabetes mellitus Sister Acute myocardial infarction Three brothers and 2 sisters History of blood clots Sister Abdominal aortic aneurysm Sister Dementia Brother COPD (chronic obstructive pulmonary disease) Brother Father Acute myocardial infarction, Onset Age: 65 Mother History of blood clots Hypertension, Onset Age: 80 Social History Social History Social History: Surrogate medical decision maker: Melodie Roca (niece) or Alejandra Murray (sister). Code status: Do not resuscitate. Smoking packs per day: 0.25 Smoking cigarettes per day: 5.0 Smoking status: Former smoker Alcohol intake: former Drinks per week: 2 Alcohol use details: Social alcohol use. Substance use: former Substance use type: marijuana Last use: 2019 Do You Feel Safe in your Home?: Yes Lack of Transportation: No Lack of Food: Never True Current Housing: I Have Housing Concerned About Future Housing: No Difficulty Paying Gas/Electric Bills: No Difficulty Paying for Meds: No Currently Unemployed: No Education: Don't Know Difficulty w/ Childcare or Family Care: No Additional living arrangements comments: [facility]. Additional occupation/education comments: Disabled. Spiritual care concerns: No Meds Home Medications and Allergies Home Medications ?Medication ?Instructions ?Recorded ?Confirmed ?Type ferrous sulfate 325 mg (65 mg 325 mg PO DAILY 06/01/20 10/19/24 History iron) tablet multivitamin 1 tablet PO DAILY 06/01/20 10/19/24 History nitroglycerin 0.4 mg sublingual 0.4 mg sublingual Q5-15M PRN Chest 06/01/20 10/19/24 History tablet Pain omega-3 fatty acids-fish oil 360 1 cap PO DAILY 06/01/20 10/19/24 History mg-1,200 mg capsule atorvastatin 40 mg tablet (Lipitor) 40 mg PO HS 12/23/20 10/19/24 History folic acid 1 mg tablet 1 mg PO DAILY 12/23/20 10/19/24 History gabapentin 100 mg tablet 200 mg PO HS 12/23/20 10/19/24 History sevelamer carbonate 800 mg tablet 800 mg PO TID 12/23/20 10/19/24 History tamsulosin 0.4 mg capsule (Flomax) 0.4 mg PO DAILY 12/23/20 10/19/24 History linagliptin 5 mg tablet (Tradjenta) 5 mg PO DAILY 01/13/23 10/19/24 History mirtazapine 15 mg tablet 15 mg PO HS 01/13/23 10/19/24 History sertraline 50 mg tablet 25 mg PO HS 01/13/23 10/19/24 History aspirin 81 mg tablet 81 mg PO DAILY 09/17/23 10/19/24 History meclizine 25 mg tablet 25 mg PO Q8H PRN Dizziness 09/17/23 10/19/24 History midodrine 10 mg tablet 10 mg PO BID 09/17/23 10/19/24 History acetaminophen 325 mg tablet 650 mg PO Q6H PRN Pain (Scale 10/29/23 10/19/24 History (Tylenol) Score 1-3) naloxone 4 mg/actuation nasal spray 1 spray intranasal Q3M PRN Opioid 10/29/23 10/19/24 History Overdose sennosides 8.6 mg-docusate sodium 1 tablet PO BID PRN Constipation 10/29/23 10/19/24 History 50 mg tablet (Senna Plus) guaifenesin 100 mg/5 mL oral syrup 600 mg PO Q8H PRN Cough 03/03/24 10/19/24 History lanolin alcohols-mineral 1 applic topical QPM 03/03/24 10/19/24 History oil-w.petrolatum-ceresin topical cream (Eucerin topical cream) diphenoxylate-atropine 2.5 2 tablet PO TID PRN Diarrhea #15 03/06/24 10/19/24 Rx mg-0.025 mg tablet (Lomotil) tabs oxycodone 5 mg tablet 5 mg PO Q4H PRN Pain (Scale Score 03/06/24 10/19/24 Rx 7-10) #15 tabs tramadol 50 mg tablet 50 mg PO Q4H PRN Pain (Scale Score 03/06/24 10/19/24 Rx 4-6) #15 tabs tizanidine 2 mg tablet 2 mg PO TID 10/19/24 10/19/24 History Allergies Allergy/AdvReac Type Severity Reaction Status Date / Time Penicillins Allergy Unknown Unknown Verified 10/19/24 16:36 bee venom protein (honey bee) Allergy Swelling Verified 10/19/24 16:36 Vital Signs Vital Signs - 24 hr 10/19/24 17:47 10/19/24 17:58 10/19/24 18:00 Temperature 97.9 F Pulse Rate 61 55 L 58 L Respiratory Rate 18 Blood Pressure 107/50 L 111/54 L 109/58 L Pulse Oximetry Oxygen Delivery 10/19/24 18:15 10/19/24 18:19 10/19/24 18:30 Temperature Pulse Rate 53 L 52 L Respiratory Rate Blood Pressure 99/53 L 107/50 L 96/50 L Pulse Oximetry Oxygen Delivery 10/19/24 18:45 10/19/24 19:00 10/19/24 19:15 Temperature Pulse Rate 53 L 53 L 56 L Respiratory Rate Blood Pressure 101/50 L 99/56 L 111/57 L Pulse Oximetry Oxygen Delivery 10/19/24 19:30 10/19/24 19:45 10/19/24 20:00 Temperature Pulse Rate 63 57 L 58 L Respiratory Rate Blood Pressure 126/56 L 117/56 L 127/60 Pulse Oximetry Oxygen Delivery 10/19/24 20:00 10/19/24 20:15 10/19/24 20:16 Temperature Pulse Rate 55 L 57 L Respiratory Rate Blood Pressure 116/60 121/59 L Pulse Oximetry Oxygen Delivery Room Air 10/19/24 20:16 10/19/24 20:30 10/19/24 20:45 Temperature Pulse Rate 57 L 54 L 56 L Respiratory Rate Blood Pressure 121/59 L 119/56 L 114/58 L Pulse Oximetry Oxygen Delivery 10/19/24 21:02 10/19/24 21:16 10/19/24 21:19 Temperature 97.7 F Pulse Rate 54 L 57 L 56 L Respiratory Rate 16 Blood Pressure 114/53 L 121/59 L 114/54 L Pulse Oximetry Oxygen Delivery 10/19/24 22:00 10/20/24 05:36 10/20/24 08:00 Temperature 97.0 F L 97.2 F L 97.3 F L Pulse Rate 52 L 52 L 60 Respiratory Rate 16 18 Blood Pressure 112/48 L 122/55 L 122/46 L Pulse Oximetry 93 97 94 Oxygen Delivery 10/20/24 14:00 Temperature 97.7 F Pulse Rate 56 L Respiratory Rate Blood Pressure 111/53 L Pulse Oximetry 93 Oxygen Delivery Exam 2 Narrative: General: In no acute distress, well nourished Head: atraumatic, no encephalopathy Eyes: PERRLA, sclera clear ENT: moist mucous membranes, nasal passages clear Neck: supple, no JVD, no adenopathy, trachea midline Cardiac: Normal S1 and S2. gallop noted. No murmur or friction rubs, peripheral pulses intact. Respiratory: Lungs clear to auscultation, no adventitious lung sounds, currently on room air Gastrointestinal: soft, non-distended, non-tender, normoactive bowel sounds. : Dialysis patient, right upper extremity fistula with positive bruit and thrill Extremities: Bilateral below-knee amputations Skin: clean, dry, intact. No wounds or lesions. Neuro: Alert and oriented x4, cranial nerves intact, no neuro deficits. Psych: normal mood, normal affect, interactive Results Labs 10/20/24 06:27 10/20/24 06:27 Labs: Short CBC 10/20/24 Range/Units 06:27 WBC 5.5 (4.5-10.0) K/mm3 Hgb 8.9 L (14.0-18.0) g/dL Hct 29.0 L (42.0-52.0) % Plt Count 65 L (150-375) k/mm3 BMP 10/20/24 06:27 Sodium 139 Potassium 3.7 Chloride 104 Carbon Dioxide 28 BUN 21 H D Creatinine 3.44 H Glucose 108 Calcium 8.8
[2024-10-20] MEDS: SERTRALINE HCL 25 MG TABLET PO (20:31)
[2024-10-20] MEDS: GABAPENTIN 100 MG CAPSULE PO (20:31)
[2024-10-20] MEDS: MIRTAZAPINE 15 MG TABLET PO (20:31)
[2024-10-20] MEDS: ATORVASTATIN 40 MG TABLET PO (20:31)
[2024-10-20 20:43] LABS: Glucose Point of Care 160 mg/dl (65-105)
[2024-10-20] MEDS: levoFLOXacin 750 MG TABLET PO (20:45)
[2024-10-20 20:53] VITALS: BP 112/49; PULSE 64; RESP 18; TEMP 36.6; O2SAT 95
[2024-10-21] VITALS (22 sets, daily range): BP systolic 100–160; BP diastolic 52–66; PULSE 50–60; RESP 16–20; TEMP 36.1–37.8; O2SAT 91–94
--- NOTE | 2024-10-21 07:19 | P.PNGI_ITS ---
Progress Note: A&P Assessment and Plan (1) Coffee ground emesis: Code(s): K92.0 - Hematemesis Status: Acute Assessment and Plan: Patient with iron deficiency anemia, as discussed in yesterday's Admission note. Will perform EGD and colonoscopy on Saturday. Prep instructions left in chart. Subjective Date/time seen: 10/21/24 07:19 Interval history: The patient did not have further evidence of GI bleeding, no hematemesis and no dark stools. Hemodynamically stable. He will have dialysis today. Exam Narrative: Abdominal exam unchanged from yesterday. Objective Data Vital Signs Vital Signs: Vital Signs - 24 hr 10/20/24 08:00 10/20/24 14:00 10/20/24 20:00 Temperature 97.3 F L 97.7 F Pulse Rate 60 56 L Respiratory Rate Blood Pressure 122/46 L 111/53 L Pulse Oximetry 94 93 Oxygen Delivery Room Air 10/20/24 20:53 10/21/24 06:00 Temperature 97.9 F 97.2 F L Pulse Rate 64 60 Respiratory Rate 18 18 Blood Pressure 112/49 L 160/59 H Pulse Oximetry 95 94 Oxygen Delivery Intake/Output Intake/Output: Intake & Output 10/18/24 10/19/24 10/20/24 10/21/24 23:59 23:59 23:59 23:59 Intake Total 982.9 462 Output Total 1000 0 Balance -17.1 462 0 Meds/Results Medications: Active Medications Generic Name Dose Route Start Last Admin Trade Name Freq PRN Reason Stop Dose Admin Acetaminophen 650 mg 10/19/24 13:21 Acetaminophen 325 Mg Tablet PO Q4H PRN Mild Pain (1-3) or Fever Hydrocodone Bitart/Acetaminophen 1 tab 10/19/24 13:21 Hydrocodone/Acetaminophen (*Crx) 5-325 Mg Tablet PO Q4H PRN Pain Rated 4-6 Atorvastatin Calcium 40 mg 10/19/24 21:00 10/20/24 20:31 Atorvastatin 40 Mg Tablet PO 40 mg HS [facility] Administration Dextrose 12.5 gm 10/19/24 19:21 Dextrose 50% 25 Gm/50 Ml Syringe IV PUSH PRN PRN Hypoglycemia Protocol Diphenoxylate HCl/Atropine 2 tablet 10/19/24 19:25 Diphenoxylate/Atropine (*Crx) 2.5 Mg Tablet PO TID PRN Diarrhea Epoetin Bradford-epbx 10,000 units 10/21/24 19:27 Epoetin Bradford-Epbx 10,000 Units/Ml Vial IV PUSH 10/21/24 19:28 ONCE ONE Ferrous Sulfate 325 mg 10/20/24 09:00 10/20/24 08:23 Ferrous Sulfate [address] BY MOUTH 325 mg DAILY [facility] Administration Fish Oil 1 gm 10/20/24 09:00 10/20/24 08:23 [place] 3 Polyunsat Fatty Acids 1 Gm Cap PO 1 gm DAILY [facility] Administration Folic Acid 1 mg 10/20/24 09:00 10/20/24 08:23 Folic Acid 1 Mg Tablet PO 1 mg DAILY [facility] Administration Gabapentin 100 mg 10/19/24 21:00 10/20/24 20:31 Gabapentin 100 Mg Capsule PO 100 mg HS [facility] Administration Glucagon 1 mg 10/19/24 19:21 Glucagon For Inj 1 Mg Vial IM PRN PRN Hypoglycemia Protocol Glucose 15 gm 10/19/24 19:21 Glucose Oral Gel 15 Gm Of Glucse In 37.5 Gm Tube PO PRN PRN Hypoglycemia Protocol Guaifenesin 600 mg 10/19/24 20:13 Guaifenesin 200 Mg/10 Ml Udc PO Q8H PRN Cough Albumin Human 50 mls @ 999 mls/hr 10/19/24 15:40 Albutein IVPB 11/18/24 15:39 Q10M PRN HYPOTENSION Dextrose 1,000 mls @ 100 mls/hr 10/19/24 19:21 Dextrose 5% 1,000 Ml IVPB PRN PRN Hypoglycemia Protocol Insulin Aspart 3 - 6 units 10/20/24 08:00 10/20/24 16:41 Insulin Aspart (*Bkc) 100 Units/Ml SUB-Q Not Given TIDWM [facility] Protocol Insulin Aspart 1 - 3 units 10/19/24 21:00 10/20/24 20:47 Insulin Aspart (*Bkc) 100 Units/Ml SUB-Q Not Given HS [facility] Protocol Levofloxacin 500 mg 10/22/24 21:00 Levofloxacin 500 Mg Tablet PO 10/22/24 21:01 ONCE ONE Meclizine HCl 25 mg 10/20/24 15:01 Meclizine Hcl 25 Mg Tablet PO Q8H PRN Dizziness Midodrine 10 mg 10/20/24 08:00 10/20/24 13:52 Midodrine Hcl 10 Mg Tablet PO 10 mg BID@0800,1400 [facility] Administration Midodrine 10 mg 10/21/24 05:19 Midodrine Hcl 10 Mg Tablet PO WITH DIALYSIS PRN Hypotension Mirtazapine 15 mg 10/19/24 21:00 10/20/24 20:31 Mirtazapine 15 Mg Tablet PO 15 mg HS [facility] Administration Multi-Ingred Cream/Lotion/Oil/Oint 1 applic 10/20/24 18:00 10/20/24 17:08 Eucerin Cream 120 Gm Jar TOPICAL 1 applic QPM [facility] Administration Multivitamins Therapeutic 1 tablet 10/21/24 09:00 Multivitamins Therapeutic Tab (*Bkc) PO DAILY [facility] Senna/Docusate Sodium 1 tab 10/19/24 19:25 Senna/Docusate Sodium Tablet PO BID PRN Constipation Sertraline HCl 25 mg 10/19/24 21:00 10/20/24 20:31 Sertraline Hcl 25 Mg Tablet PO 25 mg HS [facility] Administration Sevelamer Carbonate 800 mg 10/20/24 09:00 10/20/24 17:08 Sevelamer Carbonate 800 Mg Tablet PO 800 mg TID [facility] Administration Sitagliptin Phosphate 100 mg 10/20/24 09:00 10/20/24 08:19 Sitagliptin Phosphate 100 Mg Tablet PO 100 mg QAM [facility] Administration Tamsulosin HCl 0.4 mg 10/20/24 09:00 10/20/24 08:22 Tamsulosin Hcl 0.4 Mg Capsule PO 0.4 mg DAILY [facility] Administration Tizanidine HCl 2 mg 10/20/24 09:00 10/20/24 17:08 Tizanidine Hcl 2 Mg Tablet PO Not Given TID [facility] Tramadol HCl 50 mg 10/19/24 19:25 Tramadol Hcl (*Crx) 50 Mg Tablet PO Q4H PRN Pain (Scale Score 4-6) Radiology Results: ITS Impressions Chest X-Ray 10/19/24 10:37 IMPRESSION: 1. Opacities in the right mid and lower lung zone which could represent atelectasis or pneumonia. 2. Unchanged retrocardiac opacity corresponding to region of chronic round atelectasis in the left lower lobe. Labs Labs: Laboratory Results - last 24 hr 10/20/24 10/20/24 10/20/24 06:23 06:27 08:01 POC Capillary Glucose 101 Hemoglobin A1c 5.6 TIBC 188 L % Saturation 17 L Ferritin 702.00 H Vitamin B12 755.0 Folate > 20.0 H TSH (Reflex) 1.270 10/20/24 10/20/24 10/20/24 11:11 16:31 20:18 POC Capillary Glucose 131 H 90 160 H Hemoglobin A1c TIBC % Saturation Ferritin Vitamin B12 Folate TSH (Reflex)
--- NOTE | 2024-10-21 07:30 | P.PNIM_ITS ---
Progress Note: A&P Assessment and Plan (1) Acute respiratory failure with hypoxia: Code(s): J96.01 - Acute respiratory failure with hypoxia Status: Acute Assessment and Plan: * Chest x-ray suggesting pneumonia * currently on room air * patient was given azithromycin and and Rocephin, we will transition to Levaquin oral renally dosed 10/21 * No change to current treatment (2) Pneumonia: Qualifiers: Laterality: left Lung location: unspecified part of lung Pneumonia t ype: due to unspecified organism Qualified Code(s): J18.9 - Pneumonia, unspecified organism Code(s): J18.9 - Pneumonia, unspecified organism Status: Acute Assessment and Plan: * chest x-ray suggesting pneumonia * continue Levaquin * check mycoplasma, urine strep, urine Legionella * MRSA was negative 10/21 * Mycoplasma urine strep and urine Legionella all pending * Continue Levaquin renally dosed (3) Dysphagia: Code(s): R13.10 - Dysphagia, unspecified Status: Acute Assessment and Plan: * bedside swallow ordered * patient was noted to have dysphagia with bread and meat during initial assessment * currently on diabetic diet 10/21 * Patient went for modified barium swallow and was cleared for minced and moist and mildly thick liquids * Continue diabetic diet with new restriction * Speech therapy will follow and continue exercises (4) Hematemesis: Code(s): K92.0 - Hematemesis Status: Acute Assessment and Plan: * patient reported 1 episode of hemoptysis * GI consulted * hemoglobin stable 10/21 * GI plans to take patient on Saturday for an EGD/colonoscopy * Continue clear liquid diet with thickened liquids (5) Macrocytic anemia: Code(s): D53.9 - Nutritional anemia, unspecified Status: Acute Assessment and Plan: * hemoglobin 8.9 * likely secondary to end-stage renal disease (6) Thrombocytopenia: Code(s): D69.6 - Thrombocytopenia, unspecified Status: Acute Assessment and Plan: * platelet count 65 * continue to trend * likely secondary to end-stage renal disease 10/21 * Platelet count 72 * Continue to monitor (7) End-stage renal disease on hemodialysis: Code(s): N18.6 - End stage renal disease; Z99.2 - Dependence on renal dialysis Status: Acute Assessment and Plan: * nephrology consulted * plan for dialysis today * potassium 3.7, creatinine 3.44, EGFR 18 10/21 * HD today * Nephrology following * Creatinine 5.09, EGFR 12, potassium 3.9 (8) Type 2 diabetes mellitus: Code(s): E11.9 - Type 2 diabetes mellitus without complications Status: Acute Assessment and Plan: * Blood sugars ranging 111-131 * Hgb A1C 5.2 on 02/08/2023 * will recheck hemoglobin A1c * Accu checks AC/HS * moderate dose SSI ordered * hypoglycemic protocol in place * Diabetic diet ordered * hold sitagliptin for now Time Spent With Patient Time with patient: 25 - 35 minutes Subjective Date/time seen: 10/21/24 07:30 Interval history: Interval history: This is a 59-year-old male with a significant past medical history of gastritis, end-stage renal disease on hemodialysis, chronic anemia, combined systolic and diastolic congestive heart failure, coronary artery disease, hypertension, hyperlipidemia, type 2 diabetes mellitus on 10/19/2024 with nausea and vomiting from [facility] [place]. Workup in the hospital included a respiratory panel which was negative. Chest x-ray which showed opacities in the right mid and lower lung zones consistent with pneumonia. Initial labs showed a white blood cell count of 10.3, hemoglobin 10.1, platelet count 66, anion gap 14, creatinine 6.66. He was started on Rocephin and azithromycin. 10/20/2024 antibiotic changed to Levaquin oral. patient also noted to have hemoptysis x1 episode prior to coming in. patient had dialysis yesterday. Subjective: patient denies any new complaints today. Labs reviewed. Review of Systems Review of Systems: 12 systems were reviewed and are negativ e except for as per HPI. All systems reviewed & are unremarkable except as noted in HPI and below Exam Narrative: General: In no acute distress, well nourished Cardiac: Normal S1 and S2. gallop noted. No murmur or friction rubs, peripheral pulses intact. Respiratory: Lungs clear to auscultation, no adventitious lung sounds, currently on room air Gastrointestinal: soft, non-distended, non-tender, normoactive bowel sounds. : Dialysis patient, right upper extremity fistula with positive bruit and thrill Extremities: Bilateral below-knee amputations Neuro: Alert and oriented x4 Objective Data Vital Signs Vital Signs: Vital Signs - 24 hr 10/20/24 08:00 10/20/24 14:00 10/20/24 20:00 Temperature 97.3 F L 97.7 F Pulse Rate 60 56 L Respiratory Rate Blood Pressure 122/46 L 111/53 L Pulse Oximetry 94 93 Oxygen Delivery Room Air 10/20/24 20:53 10/21/24 06:00 Temperature 97.9 F 97.2 F L Pulse Rate 64 60 Respiratory Rate 18 18 Blood Pressure 112/49 L 160/59 H Pulse Oximetry 95 94 Oxygen Delivery Intake/Output Intake/Output: Intake & Output 10/18/24 10/19/24 10/20/24 10/21/24 23:59 23:59 23:59 23:59 Intake Total 982.9 462 Output Total 1000 0 Balance -17.1 462 0 Meds/Results Medications: Active Medications Generic Name Dose Route Start Last Admin Trade Name Freq PRN Reason Stop Dose Admin Acetaminophen 650 mg 10/19/24 13:21 Acetaminophen 325 Mg Tablet PO Q4H PRN Mild Pain (1-3) or Fever Hydrocodone Bitart/Acetaminophen 1 tab 10/19/24 13:21 Hydrocodone/Acetaminophen (*Crx) 5-325 Mg Tablet PO Q4H PRN Pain Rated 4-6 Atorvastatin Calcium 40 mg 10/19/24 21:00 10/20/24 20:31 Atorvastatin 40 Mg Tablet PO 40 mg HS [facility] Administration Dextrose 12.5 gm 10/19/24 19:21 Dextrose 50% 25 Gm/50 Ml Syringe IV PUSH PRN PRN Hypoglycemia Protocol Diphenoxylate HCl/Atropine 2 tablet 10/19/24 19:25 Diphenoxylate/Atropine (*Crx) 2.5 Mg Tablet PO TID PRN Diarrhea Epoetin Bradford-epbx 10,000 units 10/21/24 19:27 Epoetin Bradford-Epbx 10,000 Units/Ml Vial IV PUSH 10/21/24 19:28 ONCE ONE Ferrous Sulfate 325 mg 10/20/24 09:00 10/20/24 08:23 Ferrous Sulfate [address] BY MOUTH 325 mg DAILY [facility] Administration Fish Oil 1 gm 10/20/24 09:00 10/20/24 08:23 [place] 3 Polyunsat Fatty Acids 1 Gm Cap PO 1 gm DAILY [facility] Administration Folic Acid 1 mg 10/20/24 09:00 10/20/24 08:23 Folic Acid 1 Mg Tablet PO 1 mg DAILY [facility] Administration Gabapentin 100 mg 10/19/24 21:00 10/20/24 20:31 Gabapentin 100 Mg Capsule PO 100 mg HS [facility] Administration Glucagon 1 mg 10/19/24 19:21 Glucagon For Inj 1 Mg Vial IM PRN PRN Hypoglycemia Protocol Glucose 15 gm 10/19/24 19:21 Glucose Oral Gel 15 Gm Of Glucse In 37.5 Gm Tube PO PRN PRN Hypoglycemia Protocol Guaifenesin 600 mg 10/19/24 20:13 Guaifenesin 200 Mg/10 Ml Udc PO Q8H PRN Cough Albumin Human 50 mls @ 999 mls/hr 10/19/24 15:40 Albutein IVPB 11/18/24 15:39 Q10M PRN HYPOTENSION Dextrose 1,000 mls @ 100 mls/hr 10/19/24 19:21 Dextrose 5% 1,000 Ml IVPB PRN PRN Hypoglycemia Protocol Insulin Aspart 3 - 6 units 10/20/24 08:00 10/20/24 16:41 Insulin Aspart (*Bkc) 100 Units/Ml SUB-Q Not Given TIDWM [facility] Protocol Insulin Aspart 1 - 3 units 10/19/24 21:00 10/20/24 20:47 Insulin Aspart (*Bkc) 100 Units/Ml SUB-Q Not Given HS [facility] Protocol Levofloxacin 500 mg 10/22/24 21:00 Levofloxacin 500 Mg Tablet PO 10/22/24 21:01 ONCE ONE Meclizine HCl 25 mg 10/20/24 15:01 Meclizine Hcl 25 Mg Tablet PO Q8H PRN Dizziness Midodrine 10 mg 10/20/24 08:00 10/20/24 13:52 Midodrine Hcl 10 Mg Tablet PO 10 mg BID@0800,1400 [facility] Administration Midodrine 10 mg 10/21/24 05:19 Midodrine Hcl 10 Mg Tablet PO WITH DIALYSIS PRN Hypotension Mirtazapine 15 mg 10/19/24 21:00 10/20/24 20:31 Mirtazapine 15 Mg Tablet PO 15 mg HS [facility] Administration Multi-Ingred Cream/Lotion/Oil/Oint 1 applic 10/20/24 18:00 10/20/24 17:08 Eucerin Cream 120 Gm Jar TOPICAL 1 applic QPM [facility] Administration Multivitamins Therapeutic 1 tablet 10/21/24 09:00 Multivitamins Therapeutic Tab (*Bkc) PO DAILY [facility] Polyethylene Glycol 119 gm 10/22/24 20:00 Polyethylene Glycol 3350 238 Gm Bottle PO 10/23/24 05:01 BID@0500,2000 [facility] Senna/Docusate Sodium 1 tab 10/19/24 19:25 Senna/Docusate Sodium Tablet PO BID PRN Constipation Sertraline HCl 25 mg 10/19/24 21:00 10/20/24 20:31 Sertraline Hcl 25 Mg Tablet PO 25 mg HS [facility] Administration Sevelamer Carbonate 800 mg 10/20/24 09:00 10/20/24 17:08 Sevelamer Carbonate 800 Mg Tablet PO 800 mg TID [facility] Administration Sitagliptin Phosphate 100 mg 10/20/24 09:00 10/20/24 08:19 Sitagliptin Phosphate 100 Mg Tablet PO 100 mg QAM [facility] Administration Tamsulosin HCl 0.4 mg 10/20/24 09:00 10/20/24 08:22 Tamsulosin Hcl 0.4 Mg Capsule PO 0.4 mg DAILY [facility] Administration Tizanidine HCl 2 mg 10/20/24 09:00 10/20/24 17:08 Tizanidine Hcl 2 Mg Tablet PO Not Given TID [facility] Tramadol HCl 50 mg 10/19/24 19:25 Tramadol Hcl (*Crx) 50 Mg Tablet PO Q4H PRN Pain (Scale Score 4-6) Radiology Results: ITS Impressions Chest X-Ray 10/19/24 10:37 IMPRESSION: 1. Opacities in the right mid and lower lung zone which could represent atelectasis or pneumonia. 2. Unchanged retrocardiac opacity corresponding to region of chronic round atelectasis in the left lower lobe. Labs Labs: Laboratory Results - last 24 hr 10/20/24 10/20/24 10/20/24 06:23 06:27 08:01 POC Capillary Glucose 101 Hemoglobin A1c 5.6 % Saturation 17 L Ferritin 702.00 H Vitamin B12 755.0 Folate > 20.0 H TSH (Reflex) 1.270 10/20/24 10/20/24 10/20/24 11:11 16:31 20:18 POC Capillary Glucose 131 H 90 160 H Hemoglobin A1c % Saturation Ferritin Vitamin B12 Folate TSH (Reflex) Quality VTE Prophylaxis VTE prophylaxis: mechanical ordered
[2024-10-21 07:50] LABS: Glucose Point of Care 114 mg/dl (65-105)
[2024-10-21] MEDS: FERROUS SULFATE 325 MG TABLET DR BY MOUTH (08:56)
[2024-10-21] MEDS: SEVELAMER CARBONATE 800 MG TABLET PO ×3 (08:56→21:03)
[2024-10-21] MEDS: MULTIVITAMINS THERAPEUTIC TAB (*BKC) 1 TABLET PO (08:56)
[2024-10-21] MEDS: FOLIC ACID 1 MG TABLET PO (08:56)
[2024-10-21] MEDS: OMEGA 3 POLYUNSAT FATTY ACIDS 1 GM CAP PO (08:56)
[2024-10-21] MEDS: TAMSULOSIN HCL 0.4 MG CAPSULE PO (08:56)
[2024-10-21] MEDS: MIDODRINE HCL 10 MG TABLET PO ×2 (08:56→13:15)
[2024-10-21] MEDS: TIZANIDINE HCL 2 MG TABLET PO ×3 (08:56→21:03)
--- NOTE | 2024-10-21 09:49 | PCSTNOTE ---
Please refer to the Bedside Swallow Evaluation in the EMR. Please note, silent aspiration cannot be ruled out at bedside.
[2024-10-21 10:08] LABS: Basophils Percent Auto 0.7 % (0.2-1.2); Eosinophils Absolute Auto 0.2 K/mm3 (0-0.3); Eosinophils Percent Auto 3.8 % (0-4.4); Hematocrit 30.8 % (42.0-52.0); Hemoglobin 9.4 g/dL (14.0-18.0); Immature Granulocyte Absolute 0.02 K/mm3 (0.00-0.031); Immature Granulocyte Percent A 0.4 % (0-0.5); Immature Platelet Fraction Pct 6.5 % (0.9-11.2); Lymphocytes Absolute Auto 0.48 K/mm3 (0.9-3.2); Lymphocytes Percent Auto 8.7 % (18.3-44.2); Mean Corpuscular HGB Conc 30.5 g/dl (32-36); Mean Corpuscular Hemoglobin 33.6 pg (26-34); Mean Platelet Volume 11.8 fl (7.4-10.4); Monocytes Absolute Auto 0.6 K/mm3 (0.1-0.6); Monocytes Percent Auto 10.1 % (2.6-8.5); Neutrophils Absolute Auto 4.2 K/mm3 (1.3-6.7); Neutrophils Percent Auto 76.3 % (45.5-73.1); Platelet Count Result 72 k/mm3 (150-375); Red Cell Distribution Width 16.2 % (11.5-14.5); White Blood Count 5.5 K/mm3 (4.5-10.0)
[2024-10-21 10:19] LABS: Potassium 3.9 mmol/L (3.4-5.0)
[2024-10-21 10:20] LABS: Albumin Level 3.2 g/dL (3.5-5.1); Anion Gap 9 mmol/L (4-12); Blood Urea Nitrogen 33 mg/dL (9-20); Calcium 8.4 mg/dL (8.4-10.2); Carbon Dioxide 27 mmol/L (22-30); Chloride 104 mmol/L (98-107); Estimated CRCL calculation 15 ml/min; Estimated Glomerular Filt Rate 12; Glucose 110 mg/dL (65-110); Phosphorus 3.3 mg/dL (2.5-4.5); Potassium 3.9 mmol/L (3.4-5.0); Sodium 140 mmol/L (137-145)
[2024-10-21 10:29] LABS: Alanine Aminotransferase 14 U/L (6-50); Albumin Level 3.2 g/dL (3.5-5.1); Alkaline Phosphatase 134 U/L (38-126); Anion Gap 12 mmol/L (4-12); Aspartate Amino Transferase 20 U/L (17-59); Bilirubin,Total 0.8 mg/dL (0.2-1.3); Blood Urea Nitrogen 32 mg/dL (9-20); Calcium 8.4 mg/dL (8.4-10.2); Carbon Dioxide 26 mmol/L (22-30); Chloride 103 mmol/L (98-107); Estimated CRCL calculation 15 ml/min; Estimated Glomerular Filt Rate 12; Glucose 110 mg/dL (65-110); Sodium 141 mmol/L (137-145)
[2024-10-21 11:36] LABS: Glucose Point of Care 158 mg/dl (65-105)
--- NOTE | 2024-10-21 12:03 | PCSTNOTE ---
Please refer to the Modified Barium Swallow Evaluation in the EMR. In consideration of missing and broken teeth, and due to premature spillage while chewing, a Minced and Moist diet, Level 5 is recommended. Mildly thick liquids, Level 2 with a chin tuck is recommended for fluid intake. It may be safest to consider crushed medication if physician is agreeable. Speech therapy is recommended to initiate home program of swallow exercises in hopes to improve swallow strength and increased safety of oral intake. Patient is able to follow directions and should be a good candidate for exercise program.
[2024-10-21 12:26] LABS: Macrocytosis 1+ (NORMAL); Ovalocytes 1+; Platelet Estimate Decreased (Adequate); Schistocytes None Seen
--- NOTE | 2024-10-21 14:47 | PC.NURSE ---
Pt. taken to dialysis via bed.
--- NOTE | 2024-10-21 15:45 | PM.PNNEP ---
Progress Note: A&P Assessment and Plan (1) ESRD (end stage renal disease): Code(s): N18.6 - End stage renal disease Status: Chronic Assessment and Plan: HD today continue M/W/F schedule while hospitalized follow electrolytes, volume status, and clearance (2) Acute hypoxemic respiratory failure: Code(s): J96.01 - Acute respiratory failure with hypoxia Status: Acute Assessment and Plan: resolving if not resolved hypoxia noted on admission weaned off supplemental oxygen volume status okay concern for possible pneumonia (see #3) (3) Pneumonia: Qualifiers: Laterality: left Lung location: lower lobe of lung Pneumonia type: due to unspecified organism Qualified Code(s): J18.9 - Pneumonia, unspecified organism Code(s): J18.9 - Pneumonia, unspecified organism Status: Acute Assessment and Plan: suspected etiology of #2 resident of nursing facility -- hospital/facility acquired infection/pneumonia(?) follow culture data on antibiotics follow clinical status (4) Hematemesis: Code(s): K92.0 - Hematemesis Status: Acute Assessment and Plan: reported history follow trend of H/H GI following -- EGD/colonoscopy tomorrow (5) Anemia: Code(s): D64.9 - Anemia, unspecified Status: Chronic Assessment and Plan: due to ESRD and possibly worsened by #3 and/or #4 anemia studies suggest iron deficiency however, would hold IV venofer given acute infection (see #3) Epogen with HD follow trend of H/H (6) Diabetes mellitus with multiple complications: Code(s): E11.8 - Type 2 diabetes mellitus with unspecified complications Status: Chronic Assessment and Plan: follow Accu-Cheks glycemic control per hospitalist Will continue to follow. Subjective Date/time seen: 10/21/24 15:45 Interval history: Follow-up for end stage renal disease on hemodialysis. Tolerating dialysis treatment at the time of my visit (seen on HD at 3:35PM); reported issues with dysphagia but MBS results noted with appropriate diet ordered; seen by GI and noted plans for EGD/colonoscopy tomorrow; no apparent distress noted when seen. Exam Narrative: General: WD/WN male in NAD Heart: normal S1 and S2; no rub Lungs: clear anteriorly Abdomen: soft, nontender, nondistended, positive bowel sounds; s/p bilateral BKAs Extremities: no cyanosis or clubbing; no edema Skin: warm and intact Objective Data Vital Signs Vital Signs: Vital Signs Temp Pulse Resp BP Pulse Ox O2 Del Method 10/21/24 15:45 50 L 114/58 L 10/21/24 15:30 50 L 109/58 L 10/21/24 15:15 51 L 121/66 10/21/24 15:00 55 L 119/63 10/21/24 14:55 100 F H 55 L 16 120/61 94 10/21/24 14:00 97.6 F 60 16 135/56 L 93 10/21/24 08:00 Room Air 10/21/24 06:00 97.2 F L 60 18 160/59 H 94 10/20/24 20:53 97.9 F 64 18 112/49 L 95 10/20/24 20:00 Room Air Intake/Output Intake/Output: Intake & Output 10/18/24 10/19/24 10/20/24 10/21/24 23:59 23:59 23:59 23:59 Intake Total 982.9 462 680 Output Total 1000 0 Balance -17.1 462 680 Meds/Results Medications: Active Medications Generic Name Dose Route Start Last Admin Trade Name Freq PRN Reason Stop Dose Admin Acetaminophen 650 mg 10/19/24 13:21 Acetaminophen 325 Mg Tablet PO Q4H PRN Mild Pain (1-3) or Fever Hydrocodone Bitart/Acetaminophen 1 tab 10/19/24 13:21 Hydrocodone/Acetaminophen (*Crx) 5-325 Mg Tablet PO Q4H PRN Pain Rated 4-6 Atorvastatin Calcium 40 mg 10/19/24 21:00 10/20/24 20:31 Atorvastatin 40 Mg Tablet PO 40 mg HS [facility] Administration Dextrose 12.5 gm 10/19/24 19:21 Dextrose 50% 25 Gm/50 Ml Syringe IV PUSH PRN PRN Hypoglycemia Protocol Diphenoxylate HCl/Atropine 2 tablet 10/19/24 19:25 Diphenoxylate/Atropine (*Crx) 2.5 Mg Tablet PO TID PRN Diarrhea Epoetin Bradford-epbx 10,000 units 10/21/24 19:27 10/21/24 18:17 Epoetin Bradford-Epbx 10,000 Units/Ml Vial IV PUSH 10/21/24 19:28 10,000 units ONCE ONE Administration Ferrous Sulfate 325 mg 10/20/24 09:00 10/21/24 08:56 Ferrous Sulfate [address] BY MOUTH 325 mg DAILY [facility] Administration Fish Oil 1 gm 10/20/24 09:00 10/21/24 08:56 [place] 3 Polyunsat Fatty Acids 1 Gm Cap PO 1 gm DAILY [facility] Administration Folic Acid 1 mg 10/20/24 09:00 10/21/24 08:56 Folic Acid 1 Mg Tablet PO 1 mg DAILY [facility] Administration Gabapentin 100 mg 10/19/24 21:00 10/20/24 20:31 Gabapentin 100 Mg Capsule PO 100 mg HS [facility] Administration Glucagon 1 mg 10/19/24 19:21 Glucagon For Inj 1 Mg Vial IM PRN PRN Hypoglycemia Protocol Glucose 15 gm 10/19/24 19:21 Glucose Oral Gel 15 Gm Of Glucse In 37.5 Gm Tube PO PRN PRN Hypoglycemia Protocol Guaifenesin 600 mg 10/19/24 20:13 Guaifenesin 200 Mg/10 Ml Udc PO Q8H PRN Cough Albumin Human 50 mls @ 999 mls/hr 10/19/24 15:40 Albutein IVPB 11/18/24 15:39 Q10M PRN HYPOTENSION Dextrose 1,000 mls @ 100 mls/hr 10/19/24 19:21 Dextrose 5% 1,000 Ml IVPB PRN PRN Hypoglycemia Protocol Lactated Ringer's 1,000 mls @ 150 mls/hr 10/21/24 14:00 Lr - Lactated Ringers Iv IV CONT .Q6H40M [facility] Insulin Aspart 3 - 6 units 10/20/24 08:00 10/21/24 11:39 Insulin Aspart (*Bkc) 100 Units/Ml SUB-Q Not Given TIDWM [facility] Protocol Insulin Aspart 1 - 3 units 10/19/24 21:00 10/20/24 20:47 Insulin Aspart (*Bkc) 100 Units/Ml SUB-Q Not Given HS [facility] Protocol Levofloxacin 500 mg 10/22/24 21:00 Levofloxacin 500 Mg Tablet PO 10/22/24 21:01 ONCE ONE Meclizine HCl 25 mg 10/20/24 15:01 Meclizine Hcl 25 Mg Tablet PO Q8H PRN Dizziness Midodrine 10 mg 10/20/24 08:00 10/21/24 13:15 Midodrine Hcl 10 Mg Tablet PO 10 mg BID@0800,1400 [facility] Administration Midodrine 10 mg 10/21/24 05:19 Midodrine Hcl 10 Mg Tablet PO WITH DIALYSIS PRN Hypotension Mirtazapine 15 mg 10/19/24 21:00 10/20/24 20:31 Mirtazapine 15 Mg Tablet PO 15 mg HS [facility] Administration Multi-Ingred Cream/Lotion/Oil/Oint 1 applic 10/20/24 18:00 10/20/24 17:08 Eucerin Cream 120 Gm Jar TOPICAL 1 applic QPM [facility] Administration Multivitamins Therapeutic 1 tablet 10/21/24 09:00 10/21/24 08:56 Multivitamins Therapeutic Tab (*Bkc) PO 1 tablet DAILY [facility] Administration Polyethylene Glycol 119 gm 10/21/24 20:00 Polyethylene Glycol 3350 238 Gm Bottle PO 10/22/24 05:01 BID@0500,2000 [facility] Senna/Docusate Sodium 1 tab 10/19/24 19:25 Senna/Docusate Sodium Tablet PO BID PRN Constipation Sertraline HCl 25 mg 10/19/24 21:00 10/20/24 20:31 Sertraline Hcl 25 Mg Tablet PO 25 mg HS [facility] Administration Sevelamer Carbonate 800 mg 10/20/24 09:00 10/21/24 13:15 Sevelamer Carbonate 800 Mg Tablet PO 800 mg TID [facility] Administration Sitagliptin Phosphate 100 mg 10/20/24 09:00 10/20/24 08:19 Sitagliptin Phosphate 100 Mg Tablet PO 100 mg QAM [facility] Administration Tamsulosin HCl 0.4 mg 10/20/24 09:00 10/21/24 08:56 Tamsulosin Hcl 0.4 Mg Capsule PO 0.4 mg DAILY [facility] Administration Tizanidine HCl 2 mg 10/20/24 09:00 10/21/24 13:15 Tizanidine Hcl 2 Mg Tablet PO 2 mg TID [facility] Administration Tramadol HCl 50 mg 10/19/24 19:25 Tramadol Hcl (*Crx) 50 Mg Tablet PO Q4H PRN Pain (Scale Score 4-6) Radiology Results: ITS Impressions Chest X-Ray 10/19/24 10:37 IMPRESSION: 1. Opacities in the right mid and lower lung zone which could represent atelectasis or pneumonia. 2. Unchanged retrocardiac opacity corresponding to region of chronic round atelectasis in the left lower lobe. Modified Barium Swallow 10/21/24 11:33 IMPRESSION: Laryngeal penetration and aspiration with thin liquids. Please correlate with speech pathologist findings and specific feeding recommendations. Labs Labs: Laboratory Tests 10/21/24 09:37 10/21/24 09:37 Calcium 8.4 Phosphorus 3.3 Magnesium 2.0 Total Bilirubin 0.8 AST 20 ALT 14 Alkaline Phosphatase 134 H Total Protein 7.0 Albumin 3.2 L Microbiology 10/19/24 13:02 Blood Blood Culture - Preliminary 10/19/24 13:02 Blood Blood Culture - Preliminary
[2024-10-21] MEDS: EPOETIN ALFA-EPBX 10,000 UNITS/ML VIAL 10000 UNITS IV PUSH (18:17)
[2024-10-21] MEDS: EUCERIN CREAM 120 GM JAR 1 APPLIC TOPICAL (21:03)
[2024-10-21] MEDS: GABAPENTIN 100 MG CAPSULE PO (21:03)
[2024-10-21] MEDS: MIRTAZAPINE 15 MG TABLET PO (21:03)
[2024-10-21] MEDS: polyethylene glycoL 3350 238 GM BOTTLE 119 GM PO (21:03)
[2024-10-21] MEDS: SERTRALINE HCL 25 MG TABLET PO (21:03)
[2024-10-21] MEDS: ATORVASTATIN 40 MG TABLET PO (21:03)
[2024-10-21 21:23] LABS: Glucose Point of Care 102 mg/dl (65-105)
[2024-10-22] VITALS (10 sets, daily range): BP systolic 87–138; BP diastolic 41–61; PULSE 54–70; RESP 16–28; TEMP 36.1–36.4; O2SAT 93–100
[2024-10-22] MEDS: polyethylene glycoL 3350 238 GM BOTTLE 119 GM PO (04:46)
[2024-10-22 07:39] LABS: Basophils Percent Auto 0.5 % (0.2-1.2); Eosinophils Absolute Auto 0.2 K/mm3 (0-0.3); Eosinophils Percent Auto 4.7 % (0-4.4); Hemoglobin 9.6 g/dL (14.0-18.0); Immature Granulocyte Absolute 0.02 K/mm3 (0.00-0.031); Immature Granulocyte Percent A 0.5 % (0-0.5); Immature Platelet Fraction Pct 4.7 % (0.9-11.2); Lymphocytes Absolute Auto 0.46 K/mm3 (0.9-3.2); Lymphocytes Percent Auto 12.1 % (18.3-44.2); Mean Corpuscular Hemoglobin 33.4 pg (26-34); Mean Platelet Volume 10.7 fl (7.4-10.4); Monocytes Absolute Auto 0.5 K/mm3 (0.1-0.6); Neutrophils Absolute Auto 2.6 K/mm3 (1.3-6.7); Neutrophils Percent Auto 68.2 % (45.5-73.1); Platelet Count Result 76 k/mm3 (150-375); Red Blood Count 2.87 M/mm3 (4.6-6.20); Red Cell Distribution Width 15.9 % (11.5-14.5); White Blood Count 3.8 K/mm3 (4.5-10.0)
--- NOTE | 2024-10-22 07:44 | P.PNIM_ITS ---
Progress Note: A&P Assessment and Plan (1) Acute respiratory failure with hypoxia: Code(s): J96.01 - Acute respiratory failure with hypoxia Status: Acute Assessment and Plan: * Chest x-ray suggesting pneumonia * currently on room air * patient was given azithromycin and and Rocephin, we will transition to Levaquin oral renally dosed 10/21 * No change to current treatment 10/22 - Hypoxia resolved, currently continuing abx. (2) Pneumonia: Qualifiers: Laterality: left Lung location: unspecified part of lung Pneumonia type: due to unspecified organism Qualified Code(s): J18.9 - Pneumonia, unspecified organism Code(s): J18.9 - Pneumonia, unspecified organism Status: Acute Assessment and Plan: * chest x-ray suggesting pneumonia * continue Levaquin * check mycoplasma, urine strep, urine Legionella * MRSA was negative 10/21 * Mycoplasma urine strep and urine Legionella all pending * Continue Levaquin renally dosed 10/22 10/22 - Hypoxia resolved, currently continuing abx. (3) Dysphagia: Code(s): R13.10 - Dysphagia, unspecified Status: Acute Assessment and Plan: * bedside swallow ordered * patient was noted to have dysphagia with bread and meat during initial assessment * currently on diabetic diet 10/21 * Patient went for modified barium swallow and was cleared for minced and moist and mildly thick liquids * Continue diabetic diet with new restriction * Speech therapy will follow and continue exercises 10/22 - Was tolerating the diet noted previously, undergoing bowel prep now. He notes hx of similar in the past. (4) Hematemesis: Code(s): K92.0 - Hematemesis Status: Acute Assessment and Plan: * patient reported 1 episode of hemoptysis * GI consulted * hemoglobin stable 10/21 * GI plans to take patient on Saturday for an EGD/colonoscopy * Continue clear liquid diet with thickened liquids 10/22 - Plan for EGD/colonoscopy originally for Saturday, but possibly today. No clear BM as of yet. (5) End-stage renal disease on hemodialysis: Code(s): N18.6 - End stage renal disease; Z99.2 - Dependence on renal dialysis Status: Acute Assessment and Plan: * nephrology consulted * plan for dialysis today * potassium 3.7, creatinine 3.44, EGFR 18 10/21 * HD today * Nephrology following * Creatinine 5.09, EGFR 12, potassium 3.9 10/22 - Stable labs. (6) Type 2 diabetes mellitus: Code(s): E11.9 - Type 2 diabetes mellitus without complications Status: Acute Assessment and Plan: * Blood sugars ranging 111-131 * Hgb A1C 5.2 on 02/08/2023 * will recheck hemoglobin A1c * Accu checks AC/HS * moderate dose SSI ordered * hypoglycemic protocol in place * Diabetic diet ordered * hold sitagliptin for now 10/22 - Stable, cont. current. (7) Macrocytic anemia: Code(s): D53.9 - Nutritional anemia, unspecified Status: Acute Assessment and Plan: * hemoglobin 8.9 * likely secondary to end-stage renal disease * (8) Thrombocytopenia: Code(s): D69.6 - Thrombocytopenia, unspecified Status: Acute Assessment and Plan: * platelet count 65 * continue to trend * likely secondary to end-stage renal disease 10/21 * Platelet count 72 * Continue to monitor * Plan Kobi Salter is a 59 year old male with complex medical history including ESRD, DM, HTN, presenting with hematemesis and dysphagia, as well as hypoxic resp. failure. Plan for EGD colonoscopy pending. Hypoxia resolved with noted infiltrate on CXR. Breathing easily and doing well today. Time Spent With Patient Time with patient: 25 - 35 minutes Subjective Date/time seen: 10/22/24 07:44 Interval history: Kobi states he feels fair this morning. Notes that he hasn't had clear BMs as of yet on prep. He has weaned to room air. Review of Systems Review of Systems: All systems reviewed & are unremarkable except as noted in HPI and below Exam Narrative: GENERAL APPEARANCE: Appears to be in no acute distress. HEAD: normocephalic atraumatic EYES: PERRL, EOMI. Vision grossly intact. Pale conjunctiva. ENT: Hearing grossly intact, no nasal discharge NECK: Neck supple, trachea midline. CARDIAC: Normal S1/S2. Rhythm is regular. No murmurs, rubs, or gallops. No cyanosis or pallor. Extremities are warm and well perfused. LUNGS: Clear to auscultation without rales, rhonchi, wheezing. Bilaterally diminished breath sounds. Respirations even and unlabored. ABDOMEN: BS positive x 4 quadrants. Soft, nondistended, nontender. No guarding or rebound. MSK: Amputee. NEURO: Follows commands. No focal deficits. SKIN: [place] without lesions or eruptions. PSYCH: Stable, no paranoia or delusional thinking. Objective Data Vital Signs Vital Signs: Vital Signs - 24 hr 10/21/24 08:00 10/21/24 14:00 10/21/24 14:55 Temperature 97.6 F 100 F H Pulse Rate 60 55 L Respiratory Rate 16 16 Blood Pressure 135/56 L 120/61 Pulse Oximetry 93 94 Oxygen Delivery Room Air 10/21/24 15:00 10/21/24 15:15 10/21/24 15:30 Temperature Pulse Rate 55 L 51 L 50 L Respiratory Rate Blood Pressure 119/63 121/66 109/58 L Pulse Oximetry Oxygen Delivery 10/21/24 15:45 10/21/24 16:00 10/21/24 16:15 Temperature Pulse Rate 50 L 50 L 50 L Respiratory Rate Blood Pressure 114/58 L 114/55 L 115/58 L Pulse Oximetry Oxygen Delivery 10/21/24 16:30 10/21/24 16:45 10/21/24 17:00 Temperature Pulse Rate 50 L 50 L 52 L Respiratory Rate Blood Pressure 107/61 121/61 103/54 L Pulse Oximetry Oxygen Delivery 10/21/24 17:15 10/21/24 17:30 10/21/24 17:45 Temperature Pulse Rate 50 L 50 L 51 L Respiratory Rate Blood Pressure 120/58 L 126/57 L 125/61 Pulse Oximetry Oxygen Delivery 10/21/24 18:00 10/21/24 18:15 10/21/24 18:30 Temperature Pulse Rate 50 L 51 L 56 L Respiratory Rate Blood Pressure 114/59 L 127/62 100/57 L Pulse Oximetry Oxygen Delivery 10/21/24 18:37 10/21/24 18:48 10/21/24 20:00 Temperature 98.4 F Pulse Rate 50 L 53 L Respiratory Rate 20 Blood Pressure 100/52 L 111/55 L Pulse Oximetry 91 Oxygen Delivery Room Air 10/21/24 21:05 10/22/24 05:35 Temperature 96.9 F L 97.5 F L Pulse Rate 58 L 54 L Respiratory Rate 18 16 Blood Pressure 129/59 L 129/61 Pulse Oximetry 93 98 Oxygen Delivery Intake/Output Intake/Output: Intake & Output 10/19/24 10/20/24 10/21/24 10/22/24 23:59 23:59 23:59 23:59 Intake Total 982.9 566 150 4510 Output Total 1000 1500 Balance -17.1 462 820 1813 Meds/Results Medications: Active Medications Generic Name Dose Route Start Last Admin Trade Name Freq PRN Reason Stop Dose Admin Acetaminophen 650 mg 10/19/24 13:21 Acetaminophen 325 Mg Tablet PO Q4H PRN Mild Pain (1-3) or Fever Hydrocodone Bitart/Acetaminophen 1 tab 10/19/24 13:21 Hydrocodone/Acetaminophen (*Crx) 5-325 Mg Tablet PO Q4H PRN Pain Rated 4-6 Atorvastatin Calcium 40 mg 10/19/24 21:00 10/21/24 21:03 Atorvastatin 40 Mg Tablet PO 40 mg HS [facility] Administration Dextrose 12.5 gm 10/19/24 19:21 Dextrose 50% 25 Gm/50 Ml Syringe IV PUSH PRN PRN Hypoglycemia Protocol Diphenoxylate HCl/Atropine 2 tablet 10/19/24 19:25 Diphenoxylate/Atropine (*Crx) 2.5 Mg Tablet PO TID PRN Diarrhea Ferrous Sulfate 325 mg 10/20/24 09:00 10/21/24 08:56 Ferrous Sulfate [address] BY MOUTH 325 mg DAILY [facility] Administration Fish Oil 1 gm 10/20/24 09:00 10/21/24 08:56 [place] 3 Polyunsat Fatty Acids 1 Gm Cap PO 1 gm DAILY [facility] Administration Folic Acid 1 mg 10/20/24 09:00 10/21/24 08:56 Folic Acid 1 Mg Tablet PO 1 mg DAILY [facility] Administration Gabapentin 100 mg 10/19/24 21:00 10/21/24 21:03 Gabapentin 100 Mg Capsule PO 100 mg HS [facility] Administration Glucagon 1 mg 10/19/24 19:21 Glucagon For Inj 1 Mg Vial IM PRN PRN Hypoglycemia Protocol Glucose 15 gm 10/19/24 19:21 Glucose Oral Gel 15 Gm Of Glucse In 37.5 Gm Tube PO PRN PRN Hypoglycemia Protocol Guaifenesin 600 mg 10/19/24 20:13 Guaifenesin 200 Mg/10 Ml Udc PO Q8H PRN Cough Albumin Human 50 mls @ 999 mls/hr 10/19/24 15:40 Albutein IVPB 11/18/24 15:39 Q10M PRN HYPOTENSION Dextrose 1,000 mls @ 100 mls/hr 10/19/24 19:21 Dextrose 5% 1,000 Ml IVPB PRN PRN Hypoglycemia Protocol Lactated Ringer's 1,000 mls @ 150 mls/hr 10/21/24 14:00 Lr - Lactated Ringers Iv IV CONT .Q6H40M [facility] Insulin Aspart 3 - 6 units 10/20/24 08:00 10/21/24 20:01 Insulin Aspart (*Bkc) 100 Units/Ml SUB-Q Not Given TIDWM [facility] Protocol Insulin Aspart 1 - 3 units 10/19/24 21:00 10/22/24 01:33 Insulin Aspart (*Bkc) 100 Units/Ml SUB-Q Not Given HS [facility] Protocol Levofloxacin 500 mg 10/22/24 21:00 Levofloxacin 500 Mg Tablet PO 10/22/24 21:01 ONCE ONE Meclizine HCl 25 mg 10/20/24 15:01 Meclizine Hcl 25 Mg Tablet PO Q8H PRN Dizziness Midodrine 10 mg 10/20/24 08:00 10/21/24 13:15 Midodrine Hcl 10 Mg Tablet PO 10 mg BID@0800,1400 [facility] Administration Midodrine 10 mg 10/21/24 05:19 Midodrine Hcl 10 Mg Tablet PO WITH DIALYSIS PRN Hypotension Mirtazapine 15 mg 10/19/24 21:00 10/21/24 21:03 Mirtazapine 15 Mg Tablet PO 15 mg HS [facility] Administration Multi-Ingred Cream/Lotion/Oil/Oint 1 applic 10/20/24 18:00 10/21/24 21:03 Eucerin Cream 120 Gm Jar TOPICAL 1 applic QPM [facility] Administration Multivitamins Therapeutic 1 tablet 10/21/24 09:00 10/21/24 08:56 Multivitamins Therapeutic Tab (*Bkc) PO 1 tablet DAILY [facility] Administration Senna/Docusate Sodium 1 tab 10/19/24 19:25 Senna/Docusate Sodium Tablet PO BID PRN Constipation Sertraline HCl 25 mg 10/19/24 21:00 10/21/24 21:03 Sertraline Hcl 25 Mg Tablet PO 25 mg HS [facility] Administration Sevelamer Carbonate 800 mg 10/20/24 09:00 10/21/24 21:03 Sevelamer Carbonate 800 Mg Tablet PO 800 mg TID [facility] Administration Sitagliptin Phosphate 100 mg 10/20/24 09:00 10/20/24 08:19 Sitagliptin Phosphate 100 Mg Tablet PO 100 mg QAM [facility] Administration Tamsulosin HCl 0.4 mg 10/20/24 09:00 10/21/24 08:56 Tamsulosin Hcl 0.4 Mg Capsule PO 0.4 mg DAILY [facility] Administration Tizanidine HCl 2 mg 10/20/24 09:00 10/21/24 21:03 Tizanidine Hcl 2 Mg Tablet PO 2 mg TID [facility] Administration Tramadol HCl 50 mg 10/19/24 19:25 Tramadol Hcl (*Crx) 50 Mg Tablet PO Q4H PRN Pain (Scale Score 4-6) Radiology Results: ITS Impressions Chest X-Ray 10/19/24 10:37 IMPRESSION: 1. Opacities in the right mid and lower lung zone which could represent atelectasis or pneumonia. 2. Unchanged retrocardiac opacity corresponding to region of chronic round atelectasis in the left lower lobe. Modified Barium Swallow 10/21/24 11:33 IMPRESSION: Laryngeal penetration and aspiration with thin liquids. Please correlate with speech pathologist findings and specific feeding recommendations. Labs Labs: Laboratory Results - last 24 hr 10/21/24 10/21/24 10/21/24 07:29 09:37 09:37 WBC 5.5 RBC 2.80 L Hgb 9.4 L Hct 30.8 L MCV 110.0 H MCH 33.6 MCHC 30.5 L RDW 16.2 H Plt Count 72 L MPV 11.8 H Immature Gran % (Auto) 0.4 Neut % (Auto) 76.3 H Lymph % (Auto) 8.7 L [place] % (Auto) 10.1 H Eos % (Auto) 3.8 Baso % (Auto) 0.7 Lymph # (Auto) 0.48 L [place] # (Auto) 0.6 Eos # (Auto) 0.2 Baso # (Auto) 0.0 Abs Immat Gran (auto) 0.02 Absolute Neuts (auto) 4.2 Absolute Nucleated RBC 0.000 Band Neutrophils % Not Reportable Nucleated RBC % 0.0 Platelet Estimate Decreased % Immature Plt Fraction 6.5 Macrocytosis 1+ Ovalocytes 1+ Schistocytes None seen Sodium 140 141 Potassium 3.9 Chloride Carbon Dioxide Anion Gap BUN Creatinine Estim Creat Clear Calc Estimated GFR Glucose POC Capillary Glucose 114 H Calcium Phosphorus Magnesium Total Bilirubin AST ALT Alkaline Phosphatase Total Protein Albumin 10/21/24 10/21/24 10/21/24 09:37 09:37 09:37 WBC RBC Hgb Hct MCV MCH MCHC RDW Plt Count MPV Immature Gran % (Auto) Neut % (Auto) Lymph % (Auto) [place] % (Auto) Eos % (Auto) Baso % (Auto) Lymph # (Auto) [place] # (Auto) Eos # (Auto) Baso # (Auto) Abs Immat Gran (auto) Absolute Neuts (auto) Absolute Nucleated RBC Band Neutrophils % Nucleated RBC % Platelet Estimate % Immature Plt Fraction Macrocytosis Ovalocytes Schistocytes Sodium Potassium 3.9 Chloride 104 103 Carbon Dioxide 27 26 Anion Gap 9 BUN Creatinine Estim Creat Clear Calc Estimated GFR Glucose POC Capillary Glucose Calcium Phosphorus Magnesium Total Bilirubin AST ALT Alkaline Phosphatase Total Protein Albumin 10/21/24 10/21/24 10/21/24 09:37 09:37 09:37 WBC RBC Hgb Hct MCV MCH MCHC RDW Plt Count MPV Immature Gran % (Auto) Neut % (Auto) Lymph % (Auto) [place] % (Auto) Eos % (Auto) Baso % (Auto) Lymph # (Auto) [place] # (Auto) Eos # (Auto) Baso # (Auto) Abs Immat Gran (auto) Absolute Neuts (auto) Absolute Nucleated RBC Band Neutrophils % Nucleated RBC % Platelet Estimate % Immature Plt Fraction Macrocytosis Ovalocytes Schistocytes Sodium Potassium Chloride Carbon Dioxide Anion Gap 12 BUN 33 H D 32 H Creatinine 5.11 H 5.09 H Estim Creat Clear Calc 15 Estimated GFR Glucose POC Capillary Glucose Calcium Phosphorus Magnesium Total Bilirubin AST ALT Alkaline Phosphatase Total Protein Albumin 10/21/24 10/21/24 10/21/24 09:37 09:37 09:37 WBC RBC Hgb Hct MCV MCH MCHC RDW Plt Count MPV Immature Gran % (Auto) Neut % (Auto) Lymph % (Auto) [place] % (Auto) Eos % (Auto) Baso % (Auto) Lymph # (Auto) [place] # (Auto) Eos # (Auto) Baso # (Auto) Abs Immat Gran (auto) Absolute Neuts (auto) Absolute Nucleated RBC Band Neutrophils % Nucleated RBC % Platelet Estimate % Immature Plt Fraction Macrocytosis Ovalocytes Schistocytes Sodium Potassium Chloride Carbon Dioxide Anion Gap BUN Creatinine Estim Creat Clear Calc 15 Estimated GFR 12 L 12 L Glucose 110 110 POC Capillary Glucose Calcium 8.4 Phosphorus Magnesium Total Bilirubin AST ALT Alkaline Phosphatase Total Protein Albumin 10/21/24 10/21/24 10/21/24 09:37 09:37 11:33 WBC RBC Hgb Hct MCV MCH MCHC RDW Plt Count MPV Immature Gran % (Auto) Neut % (Auto) Lymph % (Auto) [place] % (Auto) Eos % (Auto) Baso % (Auto) Lymph # (Auto) [place] # (Auto) Eos # (Auto) Baso # (Auto) Abs Immat Gran (auto) Absolute Neuts (auto) Absolute Nucleated RBC Band Neutrophils % Nucleated RBC % Platelet Estimate % Immature Plt Fraction Macrocytosis Ovalocytes Schistocytes Sodium Potassium Chloride Carbon Dioxide Anion Gap BUN Creatinine Estim Creat Clear Calc Estimated GFR Glucose POC Capillary Glucose 158 H Calcium 8.4 Phosphorus 3.3 Magnesium 2.0 Total Bilirubin 0.8 AST 20 ALT 14 Alkaline Phosphatase 134 H Total Protein 7.0 Albumin 3.2 L 3.2 L 10/21/24 21:06 WBC RBC Hgb Hct MCV MCH MCHC RDW Plt Count MPV Immature Gran % (Auto) Neut % (Auto) Lymph % (Auto) [place] % (Auto) Eos % (Auto) Baso % (Auto) Lymph # (Auto) [place] # (Auto) Eos # (Auto) Baso # (Auto) Abs Immat Gran (auto) Absolute Neuts (auto) Absolute Nucleated RBC Band Neutrophils % Nucleated RBC % Platelet Estimate % Immature Plt Fraction Macrocytosis Ovalocytes Schistocytes Sodium Potassium Chloride Carbon Dioxide Anion Gap BUN Creatinine Estim Creat Clear Calc Estimated GFR Glucose POC Capillary Glucose 102 Calcium Phosphorus Magnesium Total Bilirubin AST ALT Alkaline Phosphatase Total Protein Albumin Quality If No VTE Prophylaxis Answer both mechanical and pharmacologic: Reason no mechanical VTE proph: garett lower ext amputee Reason no pharmacologic proph: medical contraindication Hospitalist MIPS Advance Care Plan I have confirmed that the patient's Advanced Care Plan is present, code status is documented, or surrogate decision maker is listed in patient medical record.: Yes Medication Reconciliation I have utilized all available resources to obtain, update and review the patients current medications (includes all prescriptions, OTC, herbals, cannabis, and nutritional supplements).: Yes
[2024-10-22 08:04] LABS: Glucose Point of Care 135 mg/dl (65-105)
[2024-10-22 08:06] LABS: Alanine Aminotransferase 14 U/L (6-50); Albumin Level 3.1 g/dL (3.5-5.1); Alkaline Phosphatase 122 U/L (38-126); Anion Gap 6 mmol/L (4-12); Aspartate Amino Transferase 20 U/L (17-59); Bilirubin,Total 0.8 mg/dL (0.2-1.3); Blood Urea Nitrogen 15 mg/dL (9-20); Calcium 8.3 mg/dL (8.4-10.2); Carbon Dioxide 30 mmol/L (22-30); Chloride 103 mmol/L (98-107); Estimated CRCL calculation 24 ml/min; Estimated Glomerular Filt Rate 21; Glucose 132 mg/dL (65-110); Potassium 3.8 mmol/L (3.4-5.0); Sodium 139 mmol/L (137-145)
[2024-10-22 08:19] LABS: Macrocytosis 1+ (NORMAL); Ovalocytes 1+; Platelet Estimate Decreased (Adequate); Schistocytes None Seen
[2024-10-22 11:58] LABS: Glucose Point of Care 116 mg/dl (65-105)
[2024-10-22 13:49] LABS: Glucose Point of Care 107 mg/dl (65-105)
[2024-10-22] MEDS: SODIUM CHLORIDE 0.9% IV 500 ML 10 ML IV CONT (13:56)
--- NOTE | 2024-10-22 14:05 | P.PNAN_ITS ---
Anes - Initial Pre Proc Eval Procedure: Operation Date: 10/22/24 12:30 Proposed Procedures p Esophagogastroduodenoscopy & Colonoscopy - Eric Ceja MD Date/Time: 10/22/24 14:05 Surgeon: Jone Bay MD Pre Op Diagnosis: Pneumonia, hypoxia, dialysis dependent Patient Data Age: 59 Gender: M Height: 1.78 m Weight: 90.7 kg Last Vital Signs Temp 97.5 F L 10/22/24 13:51 Pulse 66 10/22/24 13:51 Resp 18 10/22/24 13:51 BP 138/61 10/22/24 13:51 Pulse Ox 96 10/22/24 13:51 O2 Del Method Room Air 10/22/24 13:51 O2 Flow Rate 2 10/19/24 09:52 Allergies Allergy/AdvReac Type Severity Reaction Status Date / Time Penicillins Allergy Unknown Unknown Verified 10/22/24 13:43 bee venom protein (honey bee) Allergy Swelling Verified 10/22/24 13:43 Home Medications ?Medication ?Instructions ?Recorded ?Confirmed ?Type ferrous sulfate 325 mg (65 mg 325 mg PO DAILY 06/01/20 10/19/24 History iron) tablet multivitamin 1 tablet PO DAILY 06/01/20 10/19/24 History nitroglycerin 0.4 mg sublingual 0.4 mg sublingual Q5-15M PRN Chest 06/01/20 10/19/24 History tablet Pain omega-3 fatty acids-fish oil 360 1 cap PO DAILY 06/01/20 10/19/24 History mg-1,200 mg capsule atorvastatin 40 mg tablet (Lipitor) 40 mg PO HS 12/23/20 10/19/24 History folic acid 1 mg tablet 1 mg PO DAILY 12/23/20 10/19/24 History gabapentin 100 mg tablet 200 mg PO HS 12/23/20 10/19/24 History sevelamer carbonate 800 mg tablet 800 mg PO TID 12/23/20 10/19/24 History tamsulosin 0.4 mg capsule (Flomax) 0.4 mg PO DAILY 12/23/20 10/19/24 History linagliptin 5 mg tablet (Tradjenta) 5 mg PO DAILY 01/13/23 10/19/24 History mirtazapine 15 mg tablet 15 mg PO HS 01/13/23 10/19/24 History sertraline 50 mg tablet 25 mg PO HS 01/13/23 10/19/24 History aspirin 81 mg tablet 81 mg PO DAILY 09/17/23 10/19/24 History meclizine 25 mg tablet 25 mg PO Q8H PRN Dizziness 09/17/23 10/19/24 History midodrine 10 mg tablet 10 mg PO BID 09/17/23 10/19/24 History acetaminophen 325 mg tablet 650 mg PO Q6H PRN Pain (Scale 10/29/23 10/19/24 History (Tylenol) Score 1-3) naloxone 4 mg/actuation nasal spray 1 spray intranasal Q3M PRN Opioid 10/29/23 10/19/24 History Overdose sennosides 8.6 mg-docusate sodium 1 tablet PO BID PRN Constipation 10/29/23 10/19/24 History 50 mg tablet (Senna Plus) guaifenesin 100 mg/5 mL oral syrup 600 mg PO Q8H PRN Cough 03/03/24 10/19/24 History lanolin alcohols-mineral 1 applic topical QPM 03/03/24 10/19/24 History oil-w.petrolatum-ceresin topical cream (Eucerin topical cream) diphenoxylate-atropine 2.5 2 tablet PO TID PRN Diarrhea #15 03/06/24 10/19/24 Rx mg-0.025 mg tablet (Lomotil) tabs oxycodone 5 mg tablet 5 mg PO Q4H PRN Pain (Scale Score 03/06/24 10/19/24 Rx 7-10) #15 tabs tramadol 50 mg tablet 50 mg PO Q4H PRN Pain (Scale Score 03/06/24 10/19/24 Rx 4-6) #15 tabs tizanidine 2 mg tablet 2 mg PO TID 10/19/24 10/19/24 History Laboratory Tests 10/21/24 10/22/24 10/22/24 21:06 07:21 07:25 WBC 3.8 L K/mm3 (4.5-10.0) RBC 2.87 L M/mm3 (4.6-6.20) Hgb 9.6 L g/dL (14.0-18.0) Hct 31.0 L % (42.0-52.0) MCV 108.0 H fl (80-100) MCH 33.4 pg (26-34) MCHC 31.0 L g/dl (32-36) RDW 15.9 H % (11.5-14.5) Plt Count 76 L k/mm3 (150-375) MPV 10.7 H fl (7.4-10.4) Immature Gran % (Auto) 0.5 % (0-0.5) Neut % (Auto) 68.2 % (45.5-73.1) Lymph % (Auto) 12.1 L % (18.3-44.2) [place] % (Auto) 14.0 H % (2.6-8.5) Eos % (Auto) 4.7 H % (0-4.4) Baso % (Auto) 0.5 % (0.2-1.2) Lymph # (Auto) 0.46 L K/mm3 (0.9-3.2) [place] # (Auto) 0.5 K/mm3 (0.1-0.6) Eos # (Auto) 0.2 K/mm3 (0-0.3) Baso # (Auto) 0.0 K/mm3 (0.0-0.1) Abs Immat Gran (auto) 0.02 K/mm3 (0.00-0.031) Absolute Neuts (auto) 2.6 K/mm3 (1.3-6.7) Absolute Nucleated RBC 0.000 K/mm3 (0.0-0.012) Band Neutrophils % Not Reportable Nucleated RBC % 0.0 % (0.0-0.2) Platelet Estimate Decreased (Adequate) % Immature Plt Fraction 4.7 % (0.9-11.2) Macrocytosis 1+ (NORMAL) Ovalocytes 1+ Schistocytes None seen Sodium 139 mmol/L (137-145) Potassium 3.8 mmol/L (3.4-5.0) Chloride 103 mmol/L (98-107) Carbon Dioxide 30 mmol/L (22-30) Anion Gap 6 mmol/L (4-12) BUN 15 D mg/dL (9-20) Creatinine 3.01 H mg/dL (0.7-1.3) Estim Creat Clear Calc 24 ml/min Estimated GFR 21 L (59 - ) Glucose 132 H mg/dL (65-110) POC Capillary Glucose 102 mg/dl 135 H mg/dl (65-105) (65-105) Calcium 8.3 L mg/dL (8.4-10.2) Total Bilirubin 0.8 mg/dL (0.2-1.3) AST 20 U/L (17-59) ALT 14 U/L (6-50) Alkaline Phosphatase 122 U/L (38-126) Total Protein 7.0 g/dL (6.3-8.2) Albumin 3.1 L g/dL (3.5-5.1) 10/22/24 10/22/24 11:27 13:47 WBC RBC Hgb Hct MCV MCH MCHC RDW Plt Count MPV Immature Gran % (Auto) Neut % (Auto) Lymph % (Auto) [place] % (Auto) Eos % (Auto) Baso % (Auto) Lymph # (Auto) [place] # (Auto) Eos # (Auto) Baso # (Auto) Abs Immat Gran (auto) Absolute Neuts (auto) Absolute Nucleated RBC Band Neutrophils % Nucleated RBC % Platelet Estimate % Immature Plt Fraction Macrocytosis Ovalocytes Schistocytes Sodium Potassium Chloride Carbon Dioxide Anion Gap BUN Creatinine Estim Creat Clear Calc Estimated GFR Glucose POC Capillary Glucose 116 H mg/dl 107 H mg/dl (65-105) (65-105) Calcium Total Bilirubin AST ALT Alkaline Phosphatase Total Protein Albumin Patient hx anesthesia problems: none Family hx anesthesia problems: none Results Review: All pre-operative results and documents have been reviewed as part of the pre- operative evaluation. [facility] Past Medical History Medical History MRSA infection Clostridium difficile diarrhea Paroxysmal atrial fibrillation Transient atrial fibrillation following bypass surgery. Coronary artery disease History of multiple stents and 4 vessel bypass. Type 2 diabetes mellitus Hyperlipidemia End-stage renal disease on hemodialysis Combined systolic and diastolic congestive heart failure Diabetic neuropathy Anxiety and depression Obstructive sleep apnea does not use a CPAP Anemia of chronic disease Diabetic nephropathy Diabetic peripheral neuropathy Arthritis Surgical History Surgical History History of right below knee amputation History of five vessel coronary artery bypass (2018) [facility] History of cataract extraction with lens replacement History of coronary artery stent placement History of cardiac catheterization History of left below knee amputation History of amputation of toe left 5th toe 2012 small toe on the right amputated Family History Family History Sibling Patient's sister is Diabetes mellitus Sister Acute myocardial infarction Three brothers and 2 sisters History of blood clots Sister Abdominal aortic aneurysm Sister Dementia Brother COPD (chronic obstructive pulmonary disease) Brother Father Acute myocardial infarction, Onset Age: 65 Mother History of blood clots Hypertension, Onset Age: 80 Social History Social History Social History: Surrogate medical decision maker: Melodie Roca (niece) or Alejandra Murray (sister). Code status: Do not resuscitate. Smoking packs per day: 0.25 Smoking cigarettes per day: 5.0 Smoking status: Former smoker Alcohol intake: former Drinks per week: 2 Alcohol use details: Social alcohol use. Substance use: former Substance use type: marijuana Last use: 2019 Do You Feel Safe in your Home?: Yes Lack of Transportation: No Lack of Food: Never True Current Housing: I Have Housing Concerned About Future Housing: No Difficulty Paying Gas/Electric Bills: No Difficulty Paying for Meds: No Currently Unemployed: No Education: Don't Know Difficulty w/ Childcare or Family Care: No Additional living arrangements comments: [facility]. Additional occupation/education comments: Disabled. Spiritual care concerns: No Anes - Eval Final PreProcedure Day of Procedure 10/22/24 14:05 Patient weight: overweight Lungs: normal air movement Airway: Mallampati scale class II Neurological: alert and oriented Last oral intake: >/= 8 hours ASA classification: IV Emergent: no Anesthetic plan: proceed Anesthesia type and monitoring: general GIVS and standard monitoring Results Review: All pre-operative results and documents have been reviewed as part of the pre- operative evaluation. DM w ESRD on HD done yest, ex smoker quit 2021, hyperlipidemia, reported hemeatemesis, now for EGD/colonoscopy. Informed Consent: The patient's anesthetic plan and its attendant risks and benefits were discussed with the patient/family/POA. Questions were solicited and answers provided to the satisfaction of the patient/family/POA.
--- NOTE | 2024-10-22 14:12 | P.PNNP_ITS ---
Progress Note: A&P Assessment and Plan (1) ESRD (end stage renal disease): Code(s): N18.6 - End stage renal disease Status: Chronic Assessment and Plan: * HD tomorrow * continue M/W/F schedule while hospitalized * follow electrolytes, volume status, and clearance (2) Acute hypoxemic respiratory failure: Code(s): J96.01 - Acute respiratory failure with hypoxia Status: Acute Assessment and Plan: * resolving if not resolved * hypoxia noted on admission * weaned off supplemental oxygen * volume status okay * concern for possible pneumonia (see #3) (3) Pneumonia: Qualifiers: Laterality: left Lung location: lower lobe of lung Pneumonia type: due to unspecified organism Qualified Code(s): J18.9 - Pneumonia, unspecified organism Code(s): J18.9 - Pneumonia, unspecified organism Status: Acute Assessment and Plan: * suspected etiology of #2 * resident of nursing facility -- hospital/facility acquired infection/pneumonia(?) * follow culture data * on antibiotics * follow clinical status (4) Hematemesis: Code(s): K92.0 - Hematemesis Status: Acute Assessment and Plan: * reported history * follow trend of H/H * GI following -- EGD/colonoscopy later today (5) Anemia: Code(s): D64.9 - Anemia, unspecified Status: Chronic Assessment and Plan: * due to ESRD and possibly worsened by #3 and/or #4 * anemia studies suggest iron deficiency * however, would hold IV venofer given acute infection (see #3) * Epogen with HD * follow trend of H/H (6) Diabetes mellitus with multiple complications: Code(s): E11.8 - Type 2 diabetes mellitus with unspecified complications Status: Chronic Assessment and Plan: * follow Accu-Cheks * glycemic control per hospitalist Will continue to follow. L Subjective Date/time seen: 10/22/24 14:12 Interval history: Follow-up for end stage renal disease on hemodialysis. Tolerated dialysis treatment yesterday without any issues or problems; on schedule later today for EGD and colonoscopy; no apparent distress voiced at the time of my visit; no events overnight or earlier this morning. Exam 2 Narrative: General: WD/WN male in NAD Heart: normal S1 and S2; no rub Lungs: clear anteriorly Abdomen: soft, nontender, nondistended, positive bowel sounds; s/p bilateral BKAs Extremities: no cyanosis or clubbing; no edema Skin: no rash Objective Data Vital Signs Vital Signs: Vital Signs Temp Pulse Resp BP Pulse Ox O2 Del Method 10/22/24 13:51 97.5 F L 66 18 138/61 96 Room Air 10/22/24 08:26 99 Room Air 10/22/24 08:00 99 Room Air 10/22/24 05:35 97.5 F L 54 L 16 129/61 98 10/21/24 21:05 96.9 F L 58 L 18 129/59 L 93 10/21/24 20:00 Room Air 10/21/24 18:48 98.4 F 53 L 20 111/55 L 91 10/21/24 18:37 50 L 100/52 L 10/21/24 18:30 56 L 100/57 L 10/21/24 18:15 51 L 127/62 10/21/24 18:00 50 L 114/59 L 10/21/24 17:45 51 L 125/61 10/21/24 17:30 50 L 126/57 L Intake/Output Intake/Output: Intake & Output 10/19/24 10/20/24 10/21/24 10/22/24 23:59 23:59 23:59 23:59 Intake Total 982.9 969 396 5884.3 Output Total 1000 1500 Balance -17.1 462 -820 1834.3 Meds/Results Medications: Active Medications Generic Name Dose Route Start Last Admin Trade Name Freq PRN Reason Stop Dose Admin Acetaminophen 650 mg 10/19/24 13:21 Acetaminophen 325 Mg Tablet PO Q4H PRN Mild Pain (1-3) or Fever Hydrocodone Bitart/Acetaminophen 1 tab 10/19/24 13:21 Hydrocodone/Acetaminophen (*Crx) 5-325 Mg Tablet PO Q4H PRN Pain Rated 4-6 Atorvastatin Calcium 40 mg 10/19/24 21:00 10/21/24 21:03 Atorvastatin 40 Mg Tablet PO 40 mg HS [facility] Administration Dextrose 12.5 gm 10/19/24 19:21 Dextrose 50% 25 Gm/50 Ml Syringe IV PUSH PRN PRN Hypoglycemia Protocol Diphenoxylate HCl/Atropine 2 tablet 10/19/24 19:25 Diphenoxylate/Atropine (*Crx) 2.5 Mg Tablet PO TID PRN Diarrhea Ferrous Sulfate 325 mg 10/20/24 09:00 10/22/24 11:27 Ferrous Sulfate [address] BY MOUTH Not Given DAILY [facility] Fish Oil 1 gm 10/20/24 09:00 10/22/24 11:26 [place] 3 Polyunsat Fatty Acids 1 Gm Cap PO Not Given DAILY [facility] Folic Acid 1 mg 10/20/24 09:00 10/22/24 11:27 Folic Acid 1 Mg Tablet PO Not Given DAILY [facility] Gabapentin 100 mg 10/19/24 21:00 10/21/24 21:03 Gabapentin 100 Mg Capsule PO 100 mg HS [facility] Administration Glucagon 1 mg 10/19/24 19:21 Glucagon For Inj 1 Mg Vial IM PRN PRN Hypoglycemia Protocol Glucose 15 gm 10/19/24 19:21 Glucose Oral Gel 15 Gm Of Glucse In 37.5 Gm Tube PO PRN PRN Hypoglycemia Protocol Guaifenesin 600 mg 10/19/24 20:13 Guaifenesin 200 Mg/10 Ml Udc PO Q8H PRN Cough Albumin Human 50 mls @ 999 mls/hr 10/19/24 15:40 Albutein IVPB 11/18/24 15:39 Q10M PRN HYPOTENSION Dextrose 1,000 mls @ 100 mls/hr 10/19/24 19:21 Dextrose 5% 1,000 Ml IVPB PRN PRN Hypoglycemia Protocol Insulin Aspart 3 - 6 units 10/20/24 08:00 10/22/24 17:12 Insulin Aspart (*Bkc) 100 Units/Ml SUB-Q Not Given TIDWM [facility] Protocol Insulin Aspart 1 - 3 units 10/19/24 21:00 10/22/24 01:33 Insulin Aspart (*Bkc) 100 Units/Ml SUB-Q Not Given HS [facility] Protocol Levofloxacin 500 mg 10/22/24 21:00 Levofloxacin 500 Mg Tablet PO 10/22/24 21:01 ONCE ONE Meclizine HCl 25 mg 10/20/24 15:01 Meclizine Hcl 25 Mg Tablet PO Q8H PRN Dizziness Midodrine 10 mg 10/20/24 08:00 10/22/24 17:13 Midodrine Hcl 10 Mg Tablet PO Not Given BID@0800,1400 [facility] Midodrine 10 mg 10/21/24 05:19 Midodrine Hcl 10 Mg Tablet PO WITH DIALYSIS PRN Hypotension Mirtazapine 15 mg 10/19/24 21:00 10/21/24 21:03 Mirtazapine 15 Mg Tablet PO 15 mg HS [facility] Administration Multi-Ingred Cream/Lotion/Oil/Oint 1 applic 10/20/24 18:00 10/21/24 21:03 Eucerin Cream 120 Gm Jar TOPICAL 1 applic QPM [facility] Administration Multivitamins Therapeutic 1 tablet 10/21/24 09:00 10/22/24 11:26 Multivitamins Therapeutic Tab (*Bkc) PO Not Given DAILY [facility] Senna/Docusate Sodium 1 tab 10/19/24 19:25 Senna/Docusate Sodium Tablet PO BID PRN Constipation Sertraline HCl 25 mg 10/19/24 21:00 10/21/24 21:03 Sertraline Hcl 25 Mg Tablet PO 25 mg HS [facility] Administration Sevelamer Carbonate 800 mg 10/20/24 09:00 10/22/24 17:10 Sevelamer Carbonate 800 Mg Tablet PO Not Given TID [facility] Sitagliptin Phosphate 100 mg 10/20/24 09:00 10/20/24 08:19 Sitagliptin Phosphate 100 Mg Tablet PO 100 mg QAM [facility] Administration Tamsulosin HCl 0.4 mg 10/20/24 09:00 10/22/24 17:13 Tamsulosin Hcl 0.4 Mg Capsule PO Not Given DAILY [facility] Tizanidine HCl 2 mg 10/20/24 09:00 10/22/24 17:11 Tizanidine Hcl 2 Mg Tablet PO Not Given TID [facility] Tramadol HCl 50 mg 10/19/24 19:25 Tramadol Hcl (*Crx) 50 Mg Tablet PO Q4H PRN Pain (Scale Score 4-6) Radiology Results: ITS Impressions Chest X-Ray 10/19/24 10:37 IMPRESSION: 1. Opacities in the right mid and lower lung zone which could represent atelectasis or pneumonia. 2. Unchanged retrocardiac opacity corresponding to region of chronic round atelectasis in the left lower lobe. Modified Barium Swallow 10/21/24 11:33 IMPRESSION: Laryngeal penetration and aspiration with thin liquids. Please correlate with speech pathologist findings and specific feeding recommendations. Labs Labs: Laboratory Tests 10/22/24 07:21 10/22/24 07:21 Calcium 8.3 L Total Bilirubin 0.8 AST 20 ALT 14 Alkaline Phosphatase 122 Total Protein 7.0 Albumin 3.1 L Microbiology 10/21/24 08:09 Sputum Sputum Culture - Final
--- NOTE | 2024-10-22 15:08 | PCSTNOTE ---
Attempted treatment for swallowing x2 but patient not in his room/not available.
--- NOTE | 2024-10-22 15:36 | SUR.OPER ---
EGD: [id number] COLON:[id number]
--- NOTE | 2024-10-22 16:10 | P.PNGI_ITS ---
Progress Note: A&P Assessment and Plan (1) Coffee ground emesis: Code(s): K92.0 - Hematemesis Status: Acute Plan The patient has iron deficiency anemia is not explained by the findings on EGD and colonoscopy. Suggest obtaining a capsule endoscopy study as an outpatient. We will put a referral in the patient will be contacted once he is discharged. Will sign off for now, please feel free to contact us for any other issues related to our specialty. Thank you. Time Spent With Patient Time with patient: 15 - 25 minutes Subjective Date/time seen: 10/22/24 16:10 Interval history: See endoscopy and colonoscopy reports. Objective Data Vital Signs Vital Signs: Vital Signs - 24 hr 10/21/24 16:15 10/21/24 16:30 10/21/24 16:45 Temperature Pulse Rate 50 L 50 L 50 L Respiratory Rate Blood Pressure 115/58 L 107/61 121/61 Pulse Oximetry Oxygen Delivery 10/21/24 17:00 10/21/24 17:15 10/21/24 17:30 Temperature Pulse Rate 52 L 50 L 50 L Respiratory Rate Blood Pressure 103/54 L 120/58 L 126/57 L Pulse Oximetry Oxygen Delivery 10/21/24 17:45 10/21/24 18:00 10/21/24 18:15 Temperature Pulse Rate 51 L 50 L 51 L Respiratory Rate Blood Pressure 125/61 114/59 L 127/62 Pulse Oximetry Oxygen Delivery 10/21/24 18:30 10/21/24 18:37 10/21/24 18:48 Temperature 98.4 F Pulse Rate 56 L 50 L 53 L Respiratory Rate 20 Blood Pressure 100/57 L 100/52 L 111/55 L Pulse Oximetry 91 Oxygen Delivery 10/21/24 20:00 10/21/24 21:05 10/22/24 05:35 Temperature 96.9 F L 97.5 F L Pulse Rate 58 L 54 L Respiratory Rate 18 16 Blood Pressure 129/59 L 129/61 Pulse Oximetry 93 98 Oxygen Delivery Room Air 10/22/24 08:00 10/22/24 08:26 10/22/24 13:51 Temperature 97.5 F L Pulse Rate 66 Respiratory Rate 18 Blood Pressure 138/61 Pulse Oximetry 99 99 96 Oxygen Delivery Room Air Room Air Room Air Intake/Output Intake/Output: Intake & Output 10/19/24 10/20/24 10/21/24 02/20/25 23:59 23:59 23:59 23:59 Intake Total 982.9 421 300 0446.3 Output Total 1000 1500 Balance -17.1 462 -820 1834.3 Meds/Results Medications: Active Medications Generic Name Dose Route Start Last Admin Trade Name Freq PRN Reason Stop Dose Admin Acetaminophen 650 mg 10/19/24 13:21 Acetaminophen 325 Mg Tablet PO Q4H PRN Mild Pain (1-3) or Fever Hydrocodone Bitart/Acetaminophen 1 tab 10/19/24 13:21 Hydrocodone/Acetaminophen (*Crx) 5-325 Mg Tablet PO Q4H PRN Pain Rated 4-6 Atorvastatin Calcium 40 mg 10/19/24 21:00 10/21/24 21:03 Atorvastatin 40 Mg Tablet PO 40 mg HS [facility] Administration Dextrose 12.5 gm 10/19/24 19:21 Dextrose 50% 25 Gm/50 Ml Syringe IV PUSH PRN PRN Hypoglycemia Protocol Diphenoxylate HCl/Atropine 2 tablet 10/19/24 19:25 Diphenoxylate/Atropine (*Crx) 2.5 Mg Tablet PO TID PRN Diarrhea Ferrous Sulfate 325 mg 10/20/24 09:00 10/22/24 11:27 Ferrous Sulfate [address] BY MOUTH Not Given DAILY [facility] Fish Oil 1 gm 10/20/24 09:00 10/22/24 11:26 [place] 3 Polyunsat Fatty Acids 1 Gm Cap PO Not Given DAILY [facility] Folic Acid 1 mg 10/20/24 09:00 10/22/24 11:27 Folic Acid 1 Mg Tablet PO Not Given DAILY [facility] Gabapentin 100 mg 10/19/24 21:00 10/21/24 21:03 Gabapentin 100 Mg Capsule PO 100 mg HS [facility] Administration Glucagon 1 mg 10/19/24 19:21 Glucagon For Inj 1 Mg Vial IM PRN PRN Hypoglycemia Protocol Glucose 15 gm 10/19/24 19:21 Glucose Oral Gel 15 Gm Of Glucse In 37.5 Gm Tube PO PRN PRN Hypoglycemia Protocol Guaifenesin 600 mg 10/19/24 20:13 Guaifenesin 200 Mg/10 Ml Udc PO Q8H PRN Cough Albumin Human 50 mls @ 999 mls/hr 10/19/24 15:40 Albutein IVPB 11/18/24 15:39 Q10M PRN HYPOTENSION Dextrose 1,000 mls @ 100 mls/hr 10/19/24 19:21 Dextrose 5% 1,000 Ml IVPB PRN PRN Hypoglycemia Protocol Lactated Ringer's 1,000 mls @ 150 mls/hr 10/21/24 14:00 Lr - Lactated Ringers Iv IV CONT .Q6H40M [facility] Sodium Chloride 500 mls @ 10 mls/hr 10/22/24 13:50 10/22/24 16:04 Normal Saline Iv IV CONT 150 mls/hr .Q24H [facility] Infusion Insulin Aspart 3 - 6 units 10/20/24 08:00 10/22/24 12:37 Insulin Aspart (*Bkc) 100 Units/Ml SUB-Q Not Given TIDWM [facility] Protocol Insulin Aspart 1 - 3 units 10/19/24 21:00 10/22/24 01:33 Insulin Aspart (*Bkc) 100 Units/Ml SUB-Q Not Given HS [facility] Protocol Levofloxacin 500 mg 10/22/24 21:00 Levofloxacin 500 Mg Tablet PO 10/22/24 21:01 ONCE ONE Meclizine HCl 25 mg 10/20/24 15:01 Meclizine Hcl 25 Mg Tablet PO Q8H PRN Dizziness Midodrine 10 mg 10/20/24 08:00 10/22/24 11:27 Midodrine Hcl 10 Mg Tablet PO Not Given BID@0800,1400 [facility] Midodrine 10 mg 10/21/24 05:19 Midodrine Hcl 10 Mg Tablet PO WITH DIALYSIS PRN Hypotension Mirtazapine 15 mg 10/19/24 21:00 10/21/24 21:03 Mirtazapine 15 Mg Tablet PO 15 mg HS [facility] Administration Multi-Ingred Cream/Lotion/Oil/Oint 1 applic 10/20/24 18:00 10/21/24 21:03 Eucerin Cream 120 Gm Jar TOPICAL 1 applic QPM [facility] Administration Multivitamins Therapeutic 1 tablet 10/21/24 09:00 10/22/24 11:26 Multivitamins Therapeutic Tab (*Bkc) PO Not Given DAILY [facility] Senna/Docusate Sodium 1 tab 10/19/24 19:25 Senna/Docusate Sodium Tablet PO BID PRN Constipation Sertraline HCl 25 mg 10/19/24 21:00 10/21/24 21:03 Sertraline Hcl 25 Mg Tablet PO 25 mg HS [facility] Administration Sevelamer Carbonate 800 mg 10/20/24 09:00 10/22/24 11:26 Sevelamer Carbonate 800 Mg Tablet PO Not Given TID [facility] Sitagliptin Phosphate 100 mg 10/20/24 09:00 10/20/24 08:19 Sitagliptin Phosphate 100 Mg Tablet PO 100 mg QAM [facility] Administration Tamsulosin HCl 0.4 mg 10/20/24 09:00 10/21/24 08:56 Tamsulosin Hcl 0.4 Mg Capsule PO 0.4 mg DAILY [facility] Administration Tizanidine HCl 2 mg 10/20/24 09:00 10/22/24 11:27 Tizanidine Hcl 2 Mg Tablet PO Not Given TID [facility] Tramadol HCl 50 mg 10/19/24 19:25 Tramadol Hcl (*Crx) 50 Mg Tablet PO Q4H PRN Pain (Scale Score 4-6) Radiology Results: ITS Impressions Chest X-Ray 10/19/24 10:37 IMPRESSION: 1. Opacities in the right mid and lower lung zone which could represent atelectasis or pneumonia. 2. Unchanged retrocardiac opacity corresponding to region of chronic round atelectasis in the left lower lobe. Modified Barium Swallow 10/21/24 11:33 IMPRESSION: Laryngeal penetration and aspiration with thin liquids. Please correlate with speech pathologist findings and specific feeding recommendations. Labs Labs: Laboratory Results - last 24 hr 10/21/24 10/22/24 10/22/24 21:06 07:21 07:25 WBC 3.8 L RBC 2.87 L Hgb 9.6 L Hct 31.0 L MCV 108.0 H MCH 33.4 MCHC 31.0 L RDW 15.9 H Plt Count 76 L MPV 10.7 H Immature Gran % (Auto) 0.5 Neut % (Auto) 68.2 Lymph % (Auto) 12.1 L [place] % (Auto) 14.0 H Eos % (Auto) 4.7 H Baso % (Auto) 0.5 Lymph # (Auto) 0.46 L [place] # (Auto) 0.5 Eos # (Auto) 0.2 Baso # (Auto) 0.0 Abs Immat Gran (auto) 0.02 Absolute Neuts (auto) 2.6 Absolute Nucleated RBC 0.000 Band Neutrophils % Not Reportable Nucleated RBC % 0.0 Platelet Estimate Decreased % Immature Plt Fraction 4.7 Macrocytosis 1+ Ovalocytes 1+ Schistocytes None seen Sodium 139 Potassium 3.8 Chloride 103 Carbon Dioxide 30 Anion Gap 6 BUN 15 D Creatinine 3.01 H Estim Creat Clear Calc 24 Estimated GFR 21 L Glucose 132 H POC Capillary Glucose 102 135 H Calcium 8.3 L Total Bilirubin 0.8 AST 20 ALT 14 Alkaline Phosphatase 122 Total Protein 7.0 Albumin 3.1 L 10/22/24 10/22/24 11:27 13:47 WBC RBC Hgb Hct MCV MCH MCHC RDW Plt Count MPV Immature Gran % (Auto) Neut % (Auto) Lymph % (Auto) [place] % (Auto) Eos % (Auto) Baso % (Auto) Lymph # (Auto) [place] # (Auto) Eos # (Auto) Baso # (Auto) Abs Immat Gran (auto) Absolute Neuts (auto) Absolute Nucleated RBC Band Neutrophils % Nucleated RBC % Platelet Estimate % Immature Plt Fraction Macrocytosis Ovalocytes Schistocytes Sodium Potassium Chloride Carbon Dioxide Anion Gap BUN Creatinine Estim Creat Clear Calc Estimated GFR Glucose POC Capillary Glucose 116 H 107 H Calcium Total Bilirubin AST ALT Alkaline Phosphatase Total Protein Albumin
[2024-10-22 17:06] LABS: Glucose Point of Care 98 mg/dl (65-105)
[2024-10-22] MEDS: TIZANIDINE HCL 2 MG TABLET PO (17:48)
[2024-10-22] MEDS: SEVELAMER CARBONATE 800 MG TABLET PO (17:48)
[2024-10-22] MEDS: EUCERIN CREAM 120 GM JAR 1 APPLIC TOPICAL (17:49)
[2024-10-22 19:59] LABS: Mycoplasma IgM Antibody Titer 345 U/mL
[2024-10-22 20:40] LABS: Glucose Point of Care 111 mg/dl (65-105)
[2024-10-22] MEDS: SERTRALINE HCL 25 MG TABLET PO (21:31)
[2024-10-22] MEDS: GABAPENTIN 100 MG CAPSULE PO (21:31)
[2024-10-22] MEDS: MIRTAZAPINE 15 MG TABLET PO (21:31)
[2024-10-22] MEDS: ATORVASTATIN 40 MG TABLET PO (21:31)
[2024-10-22] MEDS: levoFLOXacin 500 MG TABLET PO (21:33)
[2024-10-23] VITALS (21 sets, daily range): BP systolic 107–136; BP diastolic 41–60; PULSE 53–79; RESP 17–18; TEMP 36.2–37.1; O2SAT 96–100
[2024-10-23 07:22] LABS: Basophils Percent Auto 0.7 % (0.2-1.2); Eosinophils Absolute Auto 0.2 K/mm3 (0-0.3); Eosinophils Percent Auto 3.6 % (0-4.4); Hematocrit 30.3 % (42.0-52.0); Hemoglobin 9.4 g/dL (14.0-18.0); Immature Granulocyte Absolute 0.02 K/mm3 (0.00-0.031); Immature Granulocyte Percent A 0.4 % (0-0.5); Immature Platelet Fraction Pct 4.9 % (0.9-11.2); Lymphocytes Absolute Auto 0.46 K/mm3 (0.9-3.2); Lymphocytes Percent Auto 10.3 % (18.3-44.2); Mean Corpuscular Hemoglobin 33.6 pg (26-34); Mean Corpuscular Volume 108.2 fl (80-100); Mean Platelet Volume 12.1 fl (7.4-10.4); Monocytes Absolute Auto 0.5 K/mm3 (0.1-0.6); Monocytes Percent Auto 11.9 % (2.6-8.5); Neutrophils Absolute Auto 3.3 K/mm3 (1.3-6.7); Neutrophils Percent Auto 73.1 % (45.5-73.1); Platelet Count Result 74 k/mm3 (150-375); Red Cell Distribution Width 15.9 % (11.5-14.5); White Blood Count 4.5 K/mm3 (4.5-10.0)
[2024-10-23 07:35] LABS: Alanine Aminotransferase 12 U/L (6-50); Alkaline Phosphatase 109 U/L (38-126); Anion Gap 6 mmol/L (4-12); Aspartate Amino Transferase 17 U/L (17-59); Bilirubin,Total 0.8 mg/dL (0.2-1.3); Blood Urea Nitrogen 22 mg/dL (9-20); Calcium 8.2 mg/dL (8.4-10.2); Carbon Dioxide 28 mmol/L (22-30); Chloride 104 mmol/L (98-107); Estimated CRCL calculation 16 ml/min; Estimated Glomerular Filt Rate 13; Glucose 121 mg/dL (65-110); Potassium 4.3 mmol/L (3.4-5.0); Sodium 138 mmol/L (137-145)
[2024-10-23 08:11] LABS: Phosphorus 2.7 mg/dL (2.5-4.5)
[2024-10-23 08:12] LABS: Glucose Point of Care 125 mg/dl (65-105)
[2024-10-23 08:26] LABS: Platelet Estimate Decreased (Adequate)
[2024-10-23 08:28] LABS: Macrocytosis 1+ (NORMAL); Schistocytes None Seen
[2024-10-23] MEDS: TAMSULOSIN HCL 0.4 MG CAPSULE PO (08:36)
[2024-10-23] MEDS: TIZANIDINE HCL 2 MG TABLET PO ×3 (08:36→20:28)
[2024-10-23] MEDS: FERROUS SULFATE 325 MG TABLET DR BY MOUTH (08:36)
[2024-10-23] MEDS: SEVELAMER CARBONATE 800 MG TABLET PO ×3 (08:36→17:11)
[2024-10-23] MEDS: OMEGA 3 POLYUNSAT FATTY ACIDS 1 GM CAP PO (08:36)
[2024-10-23] MEDS: SITagliptin PHOSPHATE 100 MG TABLET PO (08:37)
[2024-10-23] MEDS: FOLIC ACID 1 MG TABLET PO (08:37)
[2024-10-23] MEDS: MULTIVITAMINS THERAPEUTIC TAB (*BKC) 1 TABLET PO (08:37)
[2024-10-23] MEDS: MIDODRINE HCL 10 MG TABLET PO ×2 (08:37→14:05)
--- NOTE | 2024-10-23 09:40 | PC.NURSE ---
To dialysis via bed.
[2024-10-23] MEDS: EPOETIN ALFA-EPBX 10,000 UNITS/ML VIAL 10000 UNITS IV PUSH (10:45)
--- NOTE | 2024-10-23 11:00 | P.PNNP_ITS ---
Progress Note: A&P Assessment and Plan (1) ESRD (end stage renal disease): Code(s): N18.6 - End stage renal disease Status: Chronic Assessment and Plan: * HD today * continue M/W/F schedule while hospitalized * follow electrolytes, volume status, and clearance (2) Acute hypoxemic respiratory failure: Code(s): J96.01 - Acute respiratory failure with hypoxia Status: Acute Assessment and Plan: * resolving if not resolved * hypoxia noted on admission * weaned off supplemental oxygen * volume status okay * concern for possible pneumonia (see #3) (3) Pneumonia: Qualifiers: Laterality: left Lung location: lower lobe of lung Pneumonia type: due to unspecified organism Qualified Code(s): J18.9 - Pneumonia, unspecified organism Code(s): J18.9 - Pneumonia, unspecified organism Status: Acute Assessment and Plan: * suspected etiology of #2 * resident of nursing facility -- hospital/facility acquired infection/pneumonia(?) * follow culture data * on antibiotics * follow clinical status (4) Hematemesis: Code(s): K92.0 - Hematemesis Status: Acute Assessment and Plan: * reported history * follow trend of H/H * GI following -- EGD/colonoscopy later on 10/22 * no bleeding lesions noted -- only mild gastritis * capsule endoscopy as an outpatient (5) Anemia: Code(s): D64.9 - Anemia, unspecified Status: Chronic Assessment and Plan: * due to ESRD and possibly worsened by #3 and/or #4 * anemia studies suggest iron deficiency * however, would hold IV venofer given acute infection (see #3) * Epogen with HD * follow trend of H/H (6) Diabetes mellitus with multiple complications: Code(s): E11.8 - Type 2 diabetes mellitus with unspecified complications Status: Chronic Assessment and Plan: * follow Accu-Cheks * glycemic control per hospitalist Will continue to follow. L Subjective Date/time seen: 10/23/24 11:00 Interval history: Follow-up for end stage renal disease on hemodialysis. Tolerating dialysis treatment at the time of my visit (seen on HD at 10:50AM); s/p EGD/colonoscopy yesterday afternoon with results noted; H/H remains relatively stable; breathing/respiratory status improved and no longer needing supplemental oxygen. Exam 2 Narrative: General: WD/WN male in NAD Heart: normal S1 and S2; no rub Lungs: clear anteriorly Abdomen: soft, nontender, nondistended, positive bowel sounds; s/p bilateral BKAs Extremities: no cyanosis or clubbing; no edema Skin: no nodules Objective Data Vital Signs Vital Signs: Vital Signs Temp Pulse Resp BP Pulse Ox O2 Del Method 10/23/24 08:36 98.7 F 68 136/50 L 96 10/23/24 08:36 Room Air 10/23/24 06:00 97.1 F L 60 18 116/41 L 97 10/22/24 22:00 97.0 F L 70 18 134/60 98 10/22/24 20:00 Room Air 10/22/24 16:35 60 28 H 100/41 L 93 Room Air 10/22/24 16:25 59 L 25 H 87/41 L 96 Room Air 10/22/24 16:15 56 L 18 89/45 L 99 Room Air 10/22/24 16:05 57 L 22 H 90/43 L 100 Room Air 10/22/24 14:00 97.0 F L 58 L 18 133/55 L 93 10/22/24 13:51 97.5 F L 66 18 138/61 96 Room Air Intake/Output Intake/Output: Intake & Output 10/20/24 10/21/24 10/22/24 10/23/24 23:59 23:59 23:59 23:59 Intake Total 735 146 1668.3 120 Output Total 1500 0 Balance 462 -820 2534.3 120 Meds/Results Medications: Active Medications Generic Name Dose Route Start Last Admin Trade Name Freq PRN Reason Stop Dose Admin Acetaminophen 650 mg 10/19/24 13:21 Acetaminophen 325 Mg Tablet PO Q4H PRN Mild Pain (1-3) or Fever Hydrocodone Bitart/Acetaminophen 1 tab 10/19/24 13:21 Hydrocodone/Acetaminophen (*Crx) 5-325 Mg Tablet PO Q4H PRN Pain Rated 4-6 Atorvastatin Calcium 40 mg 10/19/24 21:00 10/22/24 21:31 Atorvastatin 40 Mg Tablet PO 40 mg HS [facility] Administration Dextrose 12.5 gm 10/19/24 19:21 Dextrose 50% 25 Gm/50 Ml Syringe IV PUSH PRN PRN Hypoglycemia Protocol Diphenoxylate HCl/Atropine 2 tablet 10/19/24 19:25 Diphenoxylate/Atropine (*Crx) 2.5 Mg Tablet PO TID PRN Diarrhea Epoetin Bradford-epbx 10,000 units 10/23/24 18:26 10/23/24 10:45 Epoetin Bradford-Epbx 10,000 Units/Ml Vial IV PUSH 10/23/24 18:27 10,000 units ONCE ONE Administration Ferrous Sulfate 325 mg 10/20/24 09:00 10/23/24 08:36 Ferrous Sulfate [address] BY MOUTH 325 mg DAILY [facility] Administration Fish Oil 1 gm 10/20/24 09:00 10/23/24 08:36 [place] 3 Polyunsat Fatty Acids 1 Gm Cap PO 1 gm DAILY [facility] Administration Folic Acid 1 mg 10/20/24 09:00 10/23/24 08:37 Folic Acid 1 Mg Tablet PO 1 mg DAILY [facility] Administration Gabapentin 100 mg 10/19/24 21:00 10/22/24 21:31 Gabapentin 100 Mg Capsule PO 100 mg HS [facility] Administration Glucagon 1 mg 10/19/24 19:21 Glucagon For Inj 1 Mg Vial IM PRN PRN Hypoglycemia Protocol Glucose 15 gm 10/19/24 19:21 Glucose Oral Gel 15 Gm Of Glucse In 37.5 Gm Tube PO PRN PRN Hypoglycemia Protocol Guaifenesin 600 mg 10/19/24 20:13 Guaifenesin 200 Mg/10 Ml Udc PO Q8H PRN Cough Albumin Human 50 mls @ 999 mls/hr 10/19/24 15:40 Albutein IVPB 11/18/24 15:39 Q10M PRN HYPOTENSION Dextrose 1,000 mls @ 100 mls/hr 10/19/24 19:21 Dextrose 5% 1,000 Ml IVPB PRN PRN Hypoglycemia Protocol Insulin Aspart 3 - 6 units 10/20/24 08:00 10/23/24 08:38 Insulin Aspart (*Bkc) 100 Units/Ml SUB-Q Not Given TIDWM [facility] Protocol Insulin Aspart 1 - 3 units 10/19/24 21:00 10/22/24 21:25 Insulin Aspart (*Bkc) 100 Units/Ml SUB-Q Not Given HS [facility] Protocol Meclizine HCl 25 mg 10/20/24 15:01 Meclizine Hcl 25 Mg Tablet PO Q8H PRN Dizziness Midodrine 10 mg 10/20/24 08:00 10/23/24 08:37 Midodrine Hcl 10 Mg Tablet PO 10 mg BID@0800,1400 [facility] Administration Midodrine 10 mg 10/21/24 05:19 Midodrine Hcl 10 Mg Tablet PO WITH DIALYSIS PRN Hypotension Mirtazapine 15 mg 10/19/24 21:00 10/22/24 21:31 Mirtazapine 15 Mg Tablet PO 15 mg HS [facility] Administration Multi-Ingred Cream/Lotion/Oil/Oint 1 applic 10/20/24 18:00 10/22/24 17:49 Eucerin Cream 120 Gm Jar TOPICAL 1 applic QPM [facility] Administration Multivitamins Therapeutic 1 tablet 10/21/24 09:00 10/23/24 08:37 Multivitamins Therapeutic Tab (*Bkc) PO 1 tablet DAILY [facility] Administration Senna/Docusate Sodium 1 tab 10/19/24 19:25 Senna/Docusate Sodium Tablet PO BID PRN Constipation Sertraline HCl 25 mg 10/19/24 21:00 10/22/24 21:31 Sertraline Hcl 25 Mg Tablet PO 25 mg HS [facility] Administration Sevelamer Carbonate 800 mg 10/20/24 09:00 10/23/24 08:36 Sevelamer Carbonate 800 Mg Tablet PO 800 mg TID [facility] Administration Sitagliptin Phosphate 100 mg 10/20/24 09:00 10/23/24 08:37 Sitagliptin Phosphate 100 Mg Tablet PO 100 mg QAM [facility] Administration Tamsulosin HCl 0.4 mg 10/20/24 09:00 10/23/24 08:36 Tamsulosin Hcl 0.4 Mg Capsule PO 0.4 mg DAILY [facility] Administration Tizanidine HCl 2 mg 10/20/24 09:00 10/23/24 08:36 Tizanidine Hcl 2 Mg Tablet PO 2 mg TID [facility] Administration Tramadol HCl 50 mg 10/19/24 19:25 Tramadol Hcl (*Crx) 50 Mg Tablet PO Q4H PRN Pain (Scale Score 4-6) Radiology Results: ITS Impressions Chest X-Ray 10/19/24 10:37 IMPRESSION: 1. Opacities in the right mid and lower lung zone which could represent atelectasis or pneumonia. 2. Unchanged retrocardiac opacity corresponding to region of chronic round atelectasis in the left lower lobe. Modified Barium Swallow 10/21/24 11:33 IMPRESSION: Laryngeal penetration and aspiration with thin liquids. Please correlate with speech pathologist findings and specific feeding recommendations. Labs Labs: Laboratory Tests 10/23/24 06:46 10/23/24 06:46 Calcium 8.2 L Phosphorus 2.7 Total Bilirubin 0.8 AST 17 ALT 12 Alkaline Phosphatase 109 Total Protein 7.0 Albumin 3.0 L Microbiology 10/21/24 08:09 Sputum Sputum Culture - Final
--- NOTE | 2024-10-23 13:38 | P.PNIM_ITS ---
Progress Note: A&P Assessment and Plan (1) Acute respiratory failure with hypoxia: Code(s): J96.01 - Acute respiratory failure with hypoxia Status: Acute Assessment and Plan: * Chest x-ray suggesting pneumonia * currently on room air * patient was given azithromycin and and Rocephin, we will transition to Levaquin oral renally dosed 10/21 * No change to current treatment 10/22 - Hypoxia resolved, currently continuing abx. (2) Pneumonia: Qualifiers: Laterality: left Lung location: unspecified part of lung Pneumonia type: due to unspecified organism Qualified Code(s): J18.9 - Pneumonia, unspecified organism Code(s): J18.9 - Pneumonia, unspecified organism Status: Acute Assessment and Plan: * chest x-ray suggesting pneumonia * continue Levaquin * check mycoplasma, urine strep, urine Legionella * MRSA was negative 10/21 * Mycoplasma urine strep and urine Legionella all pending * Continue Levaquin renally dosed 10/22 10/22 - Hypoxia resolved, currently continuing abx. (3) Dysphagia: Code(s): R13.10 - Dysphagia, unspecified Status: Acute Assessment and Plan: * bedside swallow ordered * patient was noted to have dysphagia with bread and meat during initial assessment * currently on diabetic diet 10/21 * Patient went for modified barium swallow and was cleared for minced and moist and mildly thick liquids * Continue diabetic diet with new restriction * Speech therapy will follow and continue exercises 10/22 - Was tolerating the diet noted previously, undergoing bowel prep now. He notes hx of similar in the past. (4) Hematemesis: Code(s): K92.0 - Hematemesis Status: Acute Assessment and Plan: * patient reported 1 episode of hemoptysis * GI consulted * hemoglobin stable 10/21 * GI plans to take patient on Saturday for an EGD/colonoscopy * Continue clear liquid diet with thickened liquids 10/22 - Plan for EGD/colonoscopy originally for Saturday, but possibly today. No clear BM as of yet. (5) End-stage renal disease on hemodialysis: Code(s): N18.6 - End stage renal disease; Z99.2 - Dependence on renal dialysis Status: Acute Assessment and Plan: * nephrology consulted * plan for dialysis today * potassium 3.7, creatinine 3.44, EGFR 18 10/21 * HD today * Nephrology following * Creatinine 5.09, EGFR 12, potassium 3.9 10/22 - Stable labs. (6) Type 2 diabetes mellitus: Code(s): E11.9 - Type 2 diabetes mellitus without complications Status: Acute Assessment and Plan: * Blood sugars ranging 111-131 * Hgb A1C 5.2 on 02/08/2023 * will recheck hemoglobin A1c * Accu checks AC/HS * moderate dose SSI ordered * hypoglycemic protocol in place * Diabetic diet ordered * hold sitagliptin for now 10/22 - Stable, cont. current. (7) Macrocytic anemia: Code(s): D53.9 - Nutritional anemia, unspecified Status: Acute Assessment and Plan: * hemoglobin 8.9 * likely secondary to end-stage renal disease * (8) Thrombocytopenia: Code(s): D69.6 - Thrombocytopenia, unspecified Status: Acute Assessment and Plan: * platelet count 65 * continue to trend * likely secondary to end-stage renal disease 10/21 * Platelet count 72 * Continue to monitor * Plan Kobi Salter is a 59 year old male with complex medical history including ESRD, DM, HTN, presenting with hematemesis and dysphagia, as well as hypoxic resp. failure. Plan for EGD colonoscopy pending. Hypoxia resolved with noted infiltrate on CXR. Breathing easily and doing well today. Subjective Date/time seen: 10/23/24 13:38 Interval history: Patient underwent dialysis today. Patient is positive for flu. Patient has a stage the sacral decubitus ulcer and some deep tissue injury. Bilateral BKA Review of Systems Review of Systems: 12 systems were reviewed and are negativ e except for as per HPI. All systems reviewed & are unremarkable except as noted in HPI and below Exam Narrative: GENERAL APPEARANCE: Appears to be in no acute distress. HEAD: normocephalic atraumatic EYES: PERRL, EOMI. Vision grossly intact. Pale conjunctiva. ENT: Hearing grossly intact, no nasal discharge NECK: Neck supple, trachea midline. CARDIAC: Normal S1/S2. Rhythm is regular. No murmurs, rubs, or gallops. No cyanosis or pallor. Extremities are warm and well perfused. LUNGS: Clear to auscultation without rales, rhonchi, wheezing. Bilaterally diminished breath sounds. Respirations even and unlabored. ABDOMEN: BS positive x 4 quadrants. Soft, nondistended, nontender. No guarding or rebound. MSK: Amputee. NEURO: Follows commands. No focal deficits. SKIN: [place] without lesions or eruptions. PSYCH: Stable, no paranoia or delusional thinking. Objective Data Vital Signs Vital Signs: Vital Signs - 24 hr 10/22/24 13:51 10/22/24 14:00 10/22/24 16:05 Temperature 97.5 F L 97.0 F L Pulse Rate 66 58 L 57 L Respiratory Rate 18 18 22 H Blood Pressure 138/61 133/55 L 90/43 L Pulse Oximetry 96 93 100 Oxygen Delivery Room Air Room Air 10/22/24 16:15 10/22/24 16:25 10/22/24 16:35 Temperature Pulse Rate 56 L 59 L 60 Respiratory Rate 18 25 H 28 H Blood Pressure 89/45 L 87/41 L 100/41 L Pulse Oximetry 99 96 93 Oxygen Delivery Room Air Room Air Room Air 10/22/24 20:00 10/22/24 22:00 10/23/24 06:00 Temperature 97.0 F L 97.1 F L Pulse Rate 70 60 Respiratory Rate 18 18 Blood Pressure 134/60 116/41 L Pulse Oximetry 98 97 Oxygen Delivery Room Air 10/23/24 08:36 10/23/24 08:36 Temperature 98.7 F Pulse Rate 68 Respiratory Rate Blood Pressure 136/50 L Pulse Oximetry 96 Oxygen Delivery Room Air Intake/Output Intake/Output: Intake & Output 10/20/24 10/21/24 10/22/24 10/23/24 23:59 23:59 23:59 23:59 Intake Total 498 877 4915.3 120 Output Total 1500 0 Balance 462 -820 2534.3 120 Meds/Results Medications: Active Medications Generic Name Dose Route Start Last Admin Trade Name Freq PRN Reason Stop Dose Admin Acetaminophen 650 mg 10/19/24 13:21 Acetaminophen 325 Mg Tablet PO Q4H PRN Mild Pain (1-3) or Fever Hydrocodone Bitart/Acetaminophen 1 tab 10/19/24 13:21 Hydrocodone/Acetaminophen (*Crx) 5-325 Mg Tablet PO Q4H PRN Pain Rated 4-6 Atorvastatin Calcium 40 mg 10/19/24 21:00 10/22/24 21:31 Atorvastatin 40 Mg Tablet PO 40 mg HS [facility] Administration Dextrose 12.5 gm 10/19/24 19:21 Dextrose 50% 25 Gm/50 Ml Syringe IV PUSH PRN PRN Hypoglycemia Protocol Diphenoxylate HCl/Atropine 2 tablet 10/19/24 19:25 Diphenoxylate/Atropine (*Crx) 2.5 Mg Tablet PO TID PRN Diarrhea Epoetin Bradford-epbx 10,000 units 10/23/24 18:26 10/23/24 10:45 Epoetin Bradford-Epbx 10,000 Units/Ml Vial IV PUSH 10/23/24 18:27 10,000 units ONCE ONE Administration Ferrous Sulfate 325 mg 10/20/24 09:00 10/23/24 08:36 Ferrous Sulfate [address] BY MOUTH 325 mg DAILY [facility] Administration Fish Oil 1 gm 10/20/24 09:00 10/23/24 08:36 [place] 3 Polyunsat Fatty Acids 1 Gm Cap PO 1 gm DAILY [facility] Administration Folic Acid 1 mg 10/20/24 09:00 10/23/24 08:37 Folic Acid 1 Mg Tablet PO 1 mg DAILY [facility] Administration Gabapentin 100 mg 10/19/24 21:00 10/22/24 21:31 Gabapentin 100 Mg Capsule PO 100 mg HS [facility] Administration Glucagon 1 mg 10/19/24 19:21 Glucagon For Inj 1 Mg Vial IM PRN PRN Hypoglycemia Protocol Glucose 15 gm 10/19/24 19:21 Glucose Oral Gel 15 Gm Of Glucse In 37.5 Gm Tube PO PRN PRN Hypoglycemia Protocol Guaifenesin 600 mg 10/19/24 20:13 Guaifenesin 200 Mg/10 Ml Udc PO Q8H PRN Cough Albumin Human 50 mls @ 999 mls/hr 10/19/24 15:40 Albutein IVPB 11/18/24 15:39 Q10M PRN HYPOTENSION Dextrose 1,000 mls @ 100 mls/hr 10/19/24 19:21 Dextrose 5% 1,000 Ml IVPB PRN PRN Hypoglycemia Protocol Insulin Aspart 3 - 6 units 10/20/24 08:00 10/23/24 08:38 Insulin Aspart (*Bkc) 100 Units/Ml SUB-Q Not Given TIDWM [facility] Protocol Insulin Aspart 1 - 3 units 10/19/24 21:00 10/22/24 21:25 Insulin Aspart (*Bkc) 100 Units/Ml SUB-Q Not Given HS [facility] Protocol Meclizine HCl 25 mg 10/20/24 15:01 Meclizine Hcl 25 Mg Tablet PO Q8H PRN Dizziness Midodrine 10 mg 10/20/24 08:00 10/23/24 08:37 Midodrine Hcl 10 Mg Tablet PO 10 mg BID@0800,1400 [facility] Administration Midodrine 10 mg 10/21/24 05:19 Midodrine Hcl 10 Mg Tablet PO WITH DIALYSIS PRN Hypotension Mirtazapine 15 mg 10/19/24 21:00 10/22/24 21:31 Mirtazapine 15 Mg Tablet PO 15 mg HS [facility] Administration Multi-Ingred Cream/Lotion/Oil/Oint 1 applic 10/20/24 18:00 10/22/24 17:49 Eucerin Cream 120 Gm Jar TOPICAL 1 applic QPM [facility] Administration Multivitamins Therapeutic 1 tablet 10/21/24 09:00 10/23/24 08:37 Multivitamins Therapeutic Tab (*Bkc) PO 1 tablet DAILY [facility] Administration Senna/Docusate Sodium 1 tab 10/19/24 19:25 Senna/Docusate Sodium Tablet PO BID PRN Constipation Sertraline HCl 25 mg 10/19/24 21:00 10/22/24 21:31 Sertraline Hcl 25 Mg Tablet PO 25 mg HS [facility] Administration Sevelamer Carbonate 800 mg 10/20/24 09:00 10/23/24 08:36 Sevelamer Carbonate 800 Mg Tablet PO 800 mg TID [facility] Administration Sitagliptin Phosphate 100 mg 10/20/24 09:00 10/23/24 08:37 Sitagliptin Phosphate 100 Mg Tablet PO 100 mg QAM [facility] Administration Tamsulosin HCl 0.4 mg 10/20/24 09:00 10/23/24 08:36 Tamsulosin Hcl 0.4 Mg Capsule PO 0.4 mg DAILY [facility] Administration Tizanidine HCl 2 mg 10/20/24 09:00 10/23/24 08:36 Tizanidine Hcl 2 Mg Tablet PO 2 mg TID [facility] Administration Tramadol HCl 50 mg 10/19/24 19:25 Tramadol Hcl (*Crx) 50 Mg Tablet PO Q4H PRN Pain (Scale Score 4-6) Radiology Results: ITS Impressions Chest X-Ray 10/19/24 10:37 IMPRESSION: 1. Opacities in the right mid and lower lung zone which could represent atelectasis or pneumonia. 2. Unchanged retrocardiac opacity corresponding to region of chronic round atelectasis in the left lower lobe. Modified Barium Swallow 10/21/24 11:33 IMPRESSION: Laryngeal penetration and aspiration with thin liquids. Please correlate with speech pathologist findings and specific feeding recommendations. Labs Labs: Laboratory Results - last 24 hr 10/19/24 10/22/24 10/22/24 10:34 13:47 17:03 WBC RBC Hgb Hct MCV MCH MCHC RDW Plt Count MPV Immature Gran % (Auto) Neut % (Auto) Lymph % (Auto) [place] % (Auto) Eos % (Auto) Baso % (Auto) Lymph # (Auto) [place] # (Auto) Eos # (Auto) Baso # (Auto) Abs Immat Gran (auto) Absolute Neuts (auto) Absolute Nucleated RBC Band Neutrophils % Nucleated RBC % Platelet Estimate % Immature Plt Fraction Macrocytosis Schistocytes Sodium Potassium Chloride Carbon Dioxide Anion Gap BUN Creatinine Estim Creat Clear Calc Estimated GFR Glucose POC Capillary Glucose 107 H 98 Calcium Phosphorus Total Bilirubin AST ALT Alkaline Phosphatase Total Protein Albumin Mycoplasma pneumon IgM 345 10/22/24 10/23/24 10/23/24 20:30 06:46 06:46 WBC 4.5 RBC 2.80 L Hgb 9.4 L Hct 30.3 L MCV 108.2 H MCH 33.6 MCHC 31.0 L RDW 15.9 H Plt Count 74 L MPV 12.1 H Immature Gran % (Auto) 0.4 Neut % (Auto) 73.1 Lymph % (Auto) 10.3 L [place] % (Auto) 11.9 H Eos % (Auto) 3.6 Baso % (Auto) 0.7 Lymph # (Auto) 0.46 L [place] # (Auto) 0.5 Eos # (Auto) 0.2 Baso # (Auto) 0.0 Abs Immat Gran (auto) 0.02 Absolute Neuts (auto) 3.3 Absolute Nucleated RBC 0.000 Band Neutrophils % Not Reportable Nucleated RBC % 0.0 Platelet Estimate Decreased % Immature Plt Fraction 4.9 Macrocytosis 1+ Schistocytes None seen Sodium 138 Cancelled Potassium 4.3 Chloride Carbon Dioxide Anion Gap BUN Creatinine Estim Creat Clear Calc Estimated GFR Glucose POC Capillary Glucose 111 H Calcium Phosphorus Total Bilirubin AST ALT Alkaline Phosphatase Total Protein Albumin Mycoplasma pneumon IgM 10/23/24 10/23/24 10/23/24 06:46 06:46 06:46 WBC RBC Hgb Hct MCV MCH MCHC RDW Plt Count MPV Immature Gran % (Auto) Neut % (Auto) Lymph % (Auto) [place] % (Auto) Eos % (Auto) Baso % (Auto) Lymph # (Auto) [place] # (Auto) Eos # (Auto) Baso # (Auto) Abs Immat Gran (auto) Absolute Neuts (auto) Absolute Nucleated RBC Band Neutrophils % Nucleated RBC % Platelet Estimate % Immature Plt Fraction Macrocytosis Schistocytes Sodium Potassium Cancelled Chloride 104 Cancelled Carbon Dioxide 28 Cancelled Anion Gap 6 BUN Creatinine Estim Creat Clear Calc Estimated GFR Glucose POC Capillary Glucose Calcium Phosphorus Total Bilirubin AST ALT Alkaline Phosphatase Total Protein Albumin Mycoplasma pneumon IgM 10/23/24 10/23/24 10/23/24 06:46 06:46 06:46 WBC RBC Hgb Hct MCV MCH MCHC RDW Plt Count MPV Immature Gran % (Auto) Neut % (Auto) Lymph % (Auto) [place] % (Auto) Eos % (Auto) Baso % (Auto) Lymph # (Auto) [place] # (Auto) Eos # (Auto) Baso # (Auto) Abs Immat Gran (auto) Absolute Neuts (auto) Absolute Nucleated RBC Band Neutrophils % Nucleated RBC % Platelet Estimate % Immature Plt Fraction Macrocytosis Schistocytes Sodium Potassium Chloride Carbon Dioxide Anion Gap Cancelled BUN 22 H Cancelled Creatinine 4.66 H Cancelled Estim Creat Clear Calc 16 Estimated GFR Glucose POC Capillary Glucose Calcium Phosphorus Total Bilirubin AST ALT Alkaline Phosphatase Total Protein Albumin Mycoplasma pneumon IgM 10/23/24 10/23/24 10/23/24 06:46 06:46 06:46 WBC RBC Hgb Hct MCV MCH MCHC RDW Plt Count MPV Immature Gran % (Auto) Neut % (Auto) Lymph % (Auto) [place] % (Auto) Eos % (Auto) Baso % (Auto) Lymph # (Auto) [place] # (Auto) Eos # (Auto) Baso # (Auto) Abs Immat Gran (auto) Absolute Neuts (auto) Absolute Nucleated RBC Band Neutrophils % Nucleated RBC % Platelet Estimate % Immature Plt Fraction Macrocytosis Schistocytes Sodium Potassium Chloride Carbon Dioxide Anion Gap BUN Creatinine Estim Creat Clear Calc Cancelled Estimated GFR 13 L Cancelled Glucose 121 H Cancelled POC Capillary Glucose Calcium 8.2 L Phosphorus Total Bilirubin AST ALT Alkaline Phosphatase Total Protein Albumin Mycoplasma pneumon IgM 10/23/24 10/23/24 10/23/24 06:46 06:46 06:46 WBC RBC Hgb Hct MCV MCH MCHC RDW Plt Count MPV Immature Gran % (Auto) Neut % (Auto) Lymph % (Auto) [place] % (Auto) Eos % (Auto) Baso % (Auto) Lymph # (Auto) [place] # (Auto) Eos # (Auto) Baso # (Auto) Abs Immat Gran (auto) Absolute Neuts (auto) Absolute Nucleated RBC Band Neutrophils % Nucleated RBC % Platelet Estimate % Immature Plt Fraction Macrocytosis Schistocytes Sodium Potassium Chloride Carbon Dioxide Anion Gap BUN Creatinine Estim Creat Clear Calc Estimated GFR Glucose POC Capillary Glucose Calcium Cancelled Phosphorus 2.7 Cancelled Total Bilirubin 0.8 AST 17 ALT 12 Alkaline Phosphatase 109 Total Protein 7.0 Albumin 3.0 L Cancelled Mycoplasma pneumon IgM 10/23/24 08:09 WBC RBC Hgb Hct MCV MCH MCHC RDW Plt Count MPV Immature Gran % (Auto) Neut % (Auto) Lymph % (Auto) [place] % (Auto) Eos % (Auto) Baso % (Auto) Lymph # (Auto) [place] # (Auto) Eos # (Auto) Baso # (Auto) Abs Immat Gran (auto) Absolute Neuts (auto) Absolute Nucleated RBC Band Neutrophils % Nucleated RBC % Platelet Estimate % Immature Plt Fraction Macrocytosis Schistocytes Sodium Potassium Chloride Carbon Dioxide Anion Gap BUN Creatinine Estim Creat Clear Calc Estimated GFR Glucose POC Capillary Glucose 125 H Calcium Phosphorus Total Bilirubin AST ALT Alkaline Phosphatase Total Protein Albumin Mycoplasma pneumon IgM Quality VTE Prophylaxis VTE prophylaxis: mechanical ordered Hospitalist MIPS Advance Care Plan I have confirmed that the patient's Advanced Care Plan is present, code status is documented, or surrogate decision maker is listed in patient medical record.: Yes Medication Reconciliation I have utilized all available resources to obtain, update and review the patients current medications (includes all prescriptions, OTC, herbals, cannabis, and nutritional supplements).: Yes
--- NOTE | 2024-10-23 14:00 | PC.NURSE ---
Back from dialysis via bed.
[2024-10-23 14:09] LABS: Glucose Point of Care 100 mg/dl (65-105)
[2024-10-23 16:30] LABS: Glucose Point of Care 120 mg/dl (65-105)
[2024-10-23] MEDS: EUCERIN CREAM 120 GM JAR 1 APPLIC TOPICAL (17:12)
[2024-10-23] MEDS: SERTRALINE HCL 25 MG TABLET PO (20:28)
[2024-10-23] MEDS: ATORVASTATIN 40 MG TABLET PO (20:28)
[2024-10-23] MEDS: MIRTAZAPINE 15 MG TABLET PO (20:28)
[2024-10-23] MEDS: GABAPENTIN 100 MG CAPSULE PO (20:28)
[2024-10-23 20:57] LABS: Glucose Point of Care 142 mg/dl (65-105)
[2024-10-24 05:38] VITALS: BP 114/38; PULSE 79; RESP 16; TEMP 36.7; O2SAT 100
[2024-10-24 07:22] LABS: Basophils Percent Auto 0.5 % (0.2-1.2); Eosinophils Absolute Auto 0.2 K/mm3 (0-0.3); Eosinophils Percent Auto 4.2 % (0-4.4); Hematocrit 31.2 % (42.0-52.0); Hemoglobin 9.7 g/dL (14.0-18.0); Immature Granulocyte Absolute 0.01 K/mm3 (0.00-0.031); Immature Granulocyte Percent A 0.2 % (0-0.5); Immature Platelet Fraction Pct 5.2 % (0.9-11.2); Lymphocytes Absolute Auto 0.54 K/mm3 (0.9-3.2); Lymphocytes Percent Auto 12.6 % (18.3-44.2); Mean Corpuscular HGB Conc 31.1 g/dl (32-36); Mean Corpuscular Volume 109.5 fl (80-100); Mean Platelet Volume 11.3 fl (7.4-10.4); Monocytes Absolute Auto 0.6 K/mm3 (0.1-0.6); Monocytes Percent Auto 13.3 % (2.6-8.5); Neutrophils Percent Auto 69.2 % (45.5-73.1); Platelet Count Result 65 k/mm3 (150-375); Red Blood Count 2.85 M/mm3 (4.6-6.20); White Blood Count 4.3 K/mm3 (4.5-10.0)
[2024-10-24 07:43] LABS: Alanine Aminotransferase 11 U/L (6-50); Albumin Level 2.9 g/dL (3.5-5.1); Alkaline Phosphatase 114 U/L (38-126); Anion Gap 5 mmol/L (4-12); Aspartate Amino Transferase 16 U/L (17-59); Bilirubin,Total 0.7 mg/dL (0.2-1.3); Blood Urea Nitrogen 15 mg/dL (9-20); Calcium 8.5 mg/dL (8.4-10.2); Carbon Dioxide 29 mmol/L (22-30); Chloride 106 mmol/L (98-107); Estimated CRCL calculation 20 ml/min; Estimated Glomerular Filt Rate 17; Glucose 111 mg/dL (65-110); Potassium 4.3 mmol/L (3.4-5.0); Sodium 140 mmol/L (137-145)
[2024-10-24 08:00] VITALS: O2SAT 100
[2024-10-24 08:02] LABS: Basophilic Stippling 1+; Macrocytosis 1+ (NORMAL); Platelet Estimate Decreased (Adequate)
[2024-10-24 08:03] LABS: Ovalocytes 1+; Schistocytes None Seen
[2024-10-24 08:49] LABS: Glucose Point of Care 112 mg/dl (65-105)
[2024-10-24] MEDS: MULTIVITAMINS THERAPEUTIC TAB (*BKC) 1 TABLET PO (09:11)
[2024-10-24] MEDS: FERROUS SULFATE 325 MG TABLET DR BY MOUTH (09:11)
[2024-10-24] MEDS: OMEGA 3 POLYUNSAT FATTY ACIDS 1 GM CAP PO (09:11)
[2024-10-24] MEDS: FOLIC ACID 1 MG TABLET PO (09:11)
[2024-10-24] MEDS: TIZANIDINE HCL 2 MG TABLET PO ×3 (09:11→18:04)
[2024-10-24] MEDS: TAMSULOSIN HCL 0.4 MG CAPSULE PO (09:11)
[2024-10-24] MEDS: MIDODRINE HCL 10 MG TABLET PO ×2 (09:11→14:59)
[2024-10-24] MEDS: SITagliptin PHOSPHATE 100 MG TABLET PO (09:11)
[2024-10-24] MEDS: SEVELAMER CARBONATE 800 MG TABLET PO ×3 (09:11→18:04)
[2024-10-24 11:56] LABS: Glucose Point of Care 132 mg/dl (65-105)
--- NOTE | 2024-10-24 13:01 | P.PNNP_ITS ---
Progress Note: A&P Assessment and Plan (1) ESRD (end stage renal disease): Code(s): N18.6 - End stage renal disease Status: Chronic Assessment and Plan: * HD yesterday * continue M/W/F schedule while hospitalized * follow electrolytes, volume status, and clearance (2) Acute hypoxemic respiratory failure: Code(s): J96.01 - Acute respiratory failure with hypoxia Status: Acute Assessment and Plan: * resolving if not resolved * hypoxia noted on admission * weaned off supplemental oxygen * volume status okay * concern for possible pneumonia (see #3) (3) Pneumonia: Qualifiers: Laterality: left Lung location: lower lobe of lung Pneumonia type: due to unspecified organism Qualified Code(s): J18.9 - Pneumonia, unspecified organism Code(s): J18.9 - Pneumonia, unspecified organism Status: Acute Assessment and Plan: * suspected etiology of #2 * resident of nursing facility -- hospital/facility acquired infection/pneumonia(?) * follow culture data * on antibiotics * follow clinical status (4) Hematemesis: Code(s): K92.0 - Hematemesis Status: Acute Assessment and Plan: * reported history * follow trend of H/H * GI following -- EGD/colonoscopy later on 10/22 * no bleeding lesions noted -- only mild gastritis * capsule endoscopy as an outpatient (5) Anemia: Code(s): D64.9 - Anemia, unspecified Status: Chronic Assessment and Plan: * due to ESRD and possibly worsened by #3 and/or #4 * anemia studies suggest iron deficiency * however, would hold IV venofer given acute infection (see #3) * Epogen with HD * follow trend of H/H (6) Diabetes mellitus with multiple complications: Code(s): E11.8 - Type 2 diabetes mellitus with unspecified complications Status: Chronic Assessment and Plan: * follow Accu-Cheks * glycemic control per hospitalist Will continue to follow. L Subjective Date/time seen: 10/24/24 13:01 Interval history: Follow-up for end stage renal disease on hemodialysis. Tolerated dialysis treatment yesterday without any issues or problems; otherwise feels reasonably well at the time of my visit; no acute events overnight or earlier this morning; breathing continues to remain stable as is his H/H; no apparent distress noted. Exam 2 Narrative: General: WD/WN male in [facility] Heart: normal S1 and S2; no rub Lungs: clear anteriorly Abdomen: soft, nontender, nondistended, positive bowel sounds; s/p bilateral BKAs Extremities: no cyanosis or clubbing; no edema Skin: warm and dry Objective Data Vital Signs Vital Signs: Vital Signs Temp Pulse Resp BP Pulse Ox O2 Del Method 10/24/24 13:00 98.6 F 50 L 18 127/48 L 96 10/24/24 08:00 100 Room Air 10/24/24 05:38 98.1 F 79 16 114/38 L 100 10/23/24 20:25 97.9 F 75 18 130/51 L 100 10/23/24 20:00 Room Air Intake/Output Intake/Output: Intake & Output 10/21/24 10/22/24 10/23/24 10/24/24 23:59 23:59 23:59 23:59 Intake Total 680 2534.3 860 790 Output Total 1500 2000 175 Balance -820 2534.3 -1140 615 Meds/Results Medications: Active Medications Generic Name Dose Route Start Last Admin Trade Name Freq PRN Reason Stop Dose Admin Acetaminophen 650 mg 10/19/24 13:21 Acetaminophen 325 Mg Tablet PO Q4H PRN Mild Pain (1-3) or Fever Hydrocodone Bitart/Acetaminophen 1 tab 10/19/24 13:21 Hydrocodone/Acetaminophen (*Crx) 5-325 Mg Tablet PO Q4H PRN Pain Rated 4-6 Atorvastatin Calcium 40 mg 10/19/24 21:00 10/23/24 20:28 Atorvastatin 40 Mg Tablet PO 40 mg HS [facility] Administration Dextrose 12.5 gm 10/19/24 19:21 Dextrose 50% 25 Gm/50 Ml Syringe IV PUSH PRN PRN Hypoglycemia Protocol Diphenoxylate HCl/Atropine 2 tablet 10/19/24 19:25 Diphenoxylate/Atropine (*Crx) 2.5 Mg Tablet PO TID PRN Diarrhea Ferrous Sulfate 325 mg 10/20/24 09:00 10/24/24 09:11 Ferrous Sulfate [address] BY MOUTH 325 mg DAILY [facility]ADOR Administration Fish Oil 1 gm 10/20/24 09:00 10/24/24 09:11 [place] 3 Polyunsat Fatty Acids 1 Gm Cap PO 1 gm DAILY [facility]AD[facility] Administration Folic Acid 1 mg 10/20/24 09:00 10/24/24 09:11 Folic Acid 1 Mg Tablet PO 1 mg DAILY [facility] Administration Gabapentin 100 mg 10/19/24 21:00 10/23/24 20:28 Gabapentin 100 Mg Capsule PO 100 mg HS [facility] Administration Glucagon 1 mg 10/19/24 19:21 Glucagon For Inj 1 Mg Vial IM PRN PRN Hypoglycemia Protocol Glucose 15 gm 10/19/24 19:21 Glucose Oral Gel 15 Gm Of Glucse In 37.5 Gm Tube PO PRN PRN Hypoglycemia Protocol Guaifenesin 600 mg 10/19/24 20:13 Guaifenesin 200 Mg/10 Ml Udc PO Q8H PRN Cough Albumin Human 50 mls @ 999 mls/hr 10/19/24 15:40 Albutein IVPB 11/18/24 15:39 Q10M PRN HYPOTENSION Dextrose 1,000 mls @ 100 mls/hr 10/19/24 19:21 Dextrose 5% 1,000 Ml IVPB PRN PRN Hypoglycemia Protocol Insulin Aspart 3 - 6 units 10/20/24 08:00 10/24/24 18:14 Insulin Aspart (*Bkc) 100 Units/Ml SUB-Q Not Given TIDWM [facility] Protocol Insulin Aspart 1 - 3 units 10/19/24 21:00 10/23/24 22:23 Insulin Aspart (*Bkc) 100 Units/Ml SUB-Q Not Given HS [facility] Protocol Meclizine HCl 25 mg 10/20/24 15:01 Meclizine Hcl 25 Mg Tablet PO Q8H PRN Dizziness Midodrine 10 mg 10/20/24 08:00 10/24/24 14:59 Midodrine Hcl 10 Mg Tablet PO 10 mg BID@0800,1400 [facility] Administration Midodrine 10 mg 10/21/24 05:19 Midodrine Hcl 10 Mg Tablet PO WITH DIALYSIS PRN Hypotension Mirtazapine 15 mg 10/19/24 21:00 10/23/24 20:28 Mirtazapine 15 Mg Tablet PO 15 mg HS [facility]AD[facility] Administration Multi-Ingred Cream/Lotion/Oil/Oint 1 applic 10/20/24 18:00 10/23/24 17:12 Eucerin Cream 120 Gm Jar TOPICAL 1 applic QPM [facility] Administration Multivitamins Therapeutic 1 tablet 10/21/24 09:00 10/24/24 09:11 Multivitamins Therapeutic Tab (*Bkc) PO 1 tablet DAILY [facility] Administration Senna/Docusate Sodium 1 tab 10/19/24 19:25 Senna/Docusate Sodium Tablet PO BID PRN Constipation Sertraline HCl 25 mg 10/19/24 21:00 10/23/24 20:28 Sertraline Hcl 25 Mg Tablet PO 25 mg HS [facility] Administration Sevelamer Carbonate 800 mg 10/20/24 09:00 10/24/24 18:04 Sevelamer Carbonate 800 Mg Tablet PO 800 mg TID [facility] Administration Sitagliptin Phosphate 100 mg 10/20/24 09:00 10/24/24 09:11 Sitagliptin Phosphate 100 Mg Tablet PO 100 mg QAM [facility] Administration Tamsulosin HCl 0.4 mg 10/20/24 09:00 10/24/24 09:11 Tamsulosin Hcl 0.4 Mg Capsule PO 0.4 mg DAILY [facility] Administration Tizanidine HCl 2 mg 10/20/24 09:00 10/24/24 18:04 Tizanidine Hcl 2 Mg Tablet PO 2 mg TID [facility] Administration Tramadol HCl 50 mg 10/19/24 19:25 Tramadol Hcl (*Crx) 50 Mg Tablet PO Q4H PRN Pain (Scale Score 4-6) Radiology Results: ITS Impressions Chest X-Ray 10/19/24 10:37 IMPRESSION: 1. Opacities in the right mid and lower lung zone which could represent atelectasis or pneumonia. 2. Unchanged retrocardiac opacity corresponding to region of chronic round atelectasis in the left lower lobe. Modified Barium Swallow 10/21/24 11:33 IMPRESSION: Laryngeal penetration and aspiration with thin liquids. Please correlate with speech pathologist findings and specific feeding recommendations. Labs Labs: Laboratory Tests 10/24/24 07:03 10/24/24 07:03 Calcium 8.5 Total Bilirubin 0.7 AST 16 L ALT 11 Alkaline Phosphatase 114 Total Protein 7.0 Albumin 2.9 L
[2024-10-24 14:00] VITALS: BP 127/48; PULSE 50; RESP 18; TEMP 37; O2SAT 96
[2024-10-24 17:15] LABS: Glucose Point of Care 129 mg/dl (65-105)
[2024-10-24] MEDS: EUCERIN CREAM 120 GM JAR 1 APPLIC TOPICAL (18:56)
[2024-10-24 20:00] VITALS: O2SAT 96
[2024-10-24] MEDS: MIRTAZAPINE 15 MG TABLET PO (20:33)
[2024-10-24] MEDS: SERTRALINE HCL 25 MG TABLET PO (20:33)
[2024-10-24] MEDS: GABAPENTIN 100 MG CAPSULE PO (20:33)
[2024-10-24] MEDS: ATORVASTATIN 40 MG TABLET PO (20:33)
[2024-10-24 21:20] VITALS: O2SAT 97
[2024-10-24 22:00] VITALS: BP 118/59; PULSE 57; RESP 16; TEMP 37.1; O2SAT 97
[2024-10-24 22:15] LABS: Glucose Point of Care 133 mg/dl (65-105)
[2024-10-25 05:54] VITALS: BP 146/59; PULSE 59; RESP 16; TEMP 36.4; O2SAT 98
[2024-10-25 07:15] LABS: Basophils Percent Auto 0.7 % (0.2-1.2); Eosinophils Absolute Auto 0.2 K/mm3 (0-0.3); Hematocrit 30.8 % (42.0-52.0); Hemoglobin 9.7 g/dL (14.0-18.0); Immature Granulocyte Absolute 0.03 K/mm3 (0.00-0.031); Immature Granulocyte Percent A 0.7 % (0-0.5); Immature Platelet Fraction Pct 5.2 % (0.9-11.2); Lymphocytes Absolute Auto 0.61 K/mm3 (0.9-3.2); Lymphocytes Percent Auto 13.5 % (18.3-44.2); Mean Corpuscular HGB Conc 31.5 g/dl (32-36); Mean Corpuscular Hemoglobin 34.2 pg (26-34); Mean Corpuscular Volume 108.5 fl (80-100); Mean Platelet Volume 13.4 fl (7.4-10.4); Monocytes Absolute Auto 0.5 K/mm3 (0.1-0.6); Neutrophils Absolute Auto 3.2 K/mm3 (1.3-6.7); Neutrophils Percent Auto 70.1 % (45.5-73.1); Platelet Count Result 74 k/mm3 (150-375); Red Blood Count 2.84 M/mm3 (4.6-6.20); Red Cell Distribution Width 16.2 % (11.5-14.5); White Blood Count 4.5 K/mm3 (4.5-10.0)
[2024-10-25 07:37] LABS: Alanine Aminotransferase 11 U/L (6-50); Alkaline Phosphatase 121 U/L (38-126); Anion Gap 8 mmol/L (4-12); Aspartate Amino Transferase 18 U/L (17-59); Bilirubin,Total 0.7 mg/dL (0.2-1.3); Blood Urea Nitrogen 29 mg/dL (9-20); Calcium 8.3 mg/dL (8.4-10.2); Carbon Dioxide 29 mmol/L (22-30); Chloride 105 mmol/L (98-107); Estimated CRCL calculation 13 ml/min; Estimated Glomerular Filt Rate 11; Glucose 112 mg/dL (65-110); Potassium 4.6 mmol/L (3.4-5.0); Sodium 142 mmol/L (137-145)
[2024-10-25 07:51] LABS: Glucose Point of Care 113 mg/dl (65-105)
[2024-10-25] MEDS: SEVELAMER CARBONATE 800 MG TABLET PO ×3 (08:11→16:56)
[2024-10-25] MEDS: FERROUS SULFATE 325 MG TABLET DR BY MOUTH (08:11)
[2024-10-25] MEDS: TIZANIDINE HCL 2 MG TABLET PO ×3 (08:11→16:56)
[2024-10-25] MEDS: FOLIC ACID 1 MG TABLET PO (08:11)
[2024-10-25] MEDS: SITagliptin PHOSPHATE 100 MG TABLET PO (08:11)
[2024-10-25] MEDS: TAMSULOSIN HCL 0.4 MG CAPSULE PO (08:11)
[2024-10-25] MEDS: MULTIVITAMINS THERAPEUTIC TAB (*BKC) 1 TABLET PO (08:11)
[2024-10-25 08:12] VITALS: RESP 16; O2SAT 98
[2024-10-25] MEDS: MIDODRINE HCL 10 MG TABLET PO ×2 (08:12→13:11)
[2024-10-25] MEDS: OMEGA 3 POLYUNSAT FATTY ACIDS 1 GM CAP PO (08:12)
[2024-10-25 08:33] LABS: Platelet Estimate Decreased (Adequate); Schistocytes None Seen
[2024-10-25 08:34] LABS: Macrocytosis 1+ (NORMAL); Ovalocytes 1+
[2024-10-25 11:46] LABS: Glucose Point of Care 131 mg/dl (65-105)
--- NOTE | 2024-10-25 13:54 | P.PNIM_ITS ---
Progress Note: A&P Assessment and Plan (1) Acute respiratory failure with hypoxia: Code(s): J96.01 - Acute respiratory failure with hypoxia Status: Acute Assessment and Plan: * Chest x-ray suggesting pneumonia * currently on room air * patient was given azithromycin and and Rocephin, we will transition to Levaquin oral renally dosed 10/21 * No change to current treatment 10/22 - Hypoxia resolved, currently continuing abx. (2) Pneumonia: Qualifiers: Laterality: left Lung location: unspecified part of lung Pneumonia type: due to unspecified organism Qualified Code(s): J18.9 - Pneumonia, unspecified organism Code(s): J18.9 - Pneumonia, unspecified organism Status: Acute Assessment and Plan: * chest x-ray suggesting pneumonia * continue Levaquin * check mycoplasma, urine strep, urine Legionella * MRSA was negative 10/21 * Mycoplasma urine strep and urine Legionella all pending * Continue Levaquin renally dosed 10/22 10/22 - Hypoxia resolved, currently continuing abx. (3) Dysphagia: Code(s): R13.10 - Dysphagia, unspecified Status: Acute Assessment and Plan: * bedside swallow ordered * patient was noted to have dysphagia with bread and meat during initial assessment * currently on diabetic diet 10/21 * Patient went for modified barium swallow and was cleared for minced and moist and mildly thick liquids * Continue diabetic diet with new restriction * Speech therapy will follow and continue exercises 10/22 - Was tolerating the diet noted previously, undergoing bowel prep now. He notes hx of similar in the past. (4) Hematemesis: Code(s): K92.0 - Hematemesis Status: Acute Assessment and Plan: * patient reported 1 episode of hemoptysis * GI consulted * hemoglobin stable 10/21 * GI plans to take patient on Saturday for an EGD/colonoscopy * Continue clear liquid diet with thickened liquids 10/22 - Plan for EGD/colonoscopy originally for Saturday, but possibly today. No clear BM as of yet. (5) End-stage renal disease on hemodialysis: Code(s): N18.6 - End stage renal disease; Z99.2 - Dependence on renal dialysis Status: Acute Assessment and Plan: * nephrology consulted * plan for dialysis today * potassium 3.7, creatinine 3.44, EGFR 18 10/21 * HD today * Nephrology following * Creatinine 5.09, EGFR 12, potassium 3.9 10/22 - Stable labs. (6) Type 2 diabetes mellitus: Code(s): E11.9 - Type 2 diabetes mellitus without complications Status: Acute Assessment and Plan: * Blood sugars ranging 111-131 * Hgb A1C 5.2 on 02/08/2023 * will recheck hemoglobin A1c * Accu checks AC/HS * moderate dose SSI ordered * hypoglycemic protocol in place * Diabetic diet ordered * hold sitagliptin for now 10/22 - Stable, cont. current. (7) Macrocytic anemia: Code(s): D53.9 - Nutritional anemia, unspecified Status: Acute Assessment and Plan: * hemoglobin 8.9 * likely secondary to end-stage renal disease * (8) Thrombocytopenia: Code(s): D69.6 - Thrombocytopenia, unspecified Status: Acute Assessment and Plan: * platelet count 65 * continue to trend * likely secondary to end-stage renal disease 10/21 * Platelet count 72 * Continue to monitor * Plan Kobi Salter is a 59 year old male with complex medical history including ESRD, DM, HTN, presenting with hematemesis and dysphagia, as well as hypoxic resp. failure. Plan for EGD colonoscopy pending. Hypoxia resolved with noted infiltrate on CXR. Breathing easily and doing well today. Subjective Date/time seen: 10/25/24 13:54 Interval history: Patient receives dialysis MWF.Possible dc tomorrow after dialysis Review of Systems Review of Systems: 12 systems were reviewed and are negativ e except for as per HPI. All systems reviewed & are unremarkable except as noted in HPI and below Exam Narrative: GENERAL APPEARANCE: Appears to be in no acute distress. HEAD: normocephalic atraumatic EYES: PERRL, EOMI. Vision grossly intact. Pale conjunctiva. ENT: Hearing grossly intact, no nasal discharge NECK: Neck supple, trachea midline. CARDIAC: Normal S1/S2. Rhythm is regular. No murmurs, rubs, or gallops. No cyanosis or pallor. Extremities are warm and well perfused. LUNGS: Clear to auscultation without rales, rhonchi, wheezing. Bilaterally diminished breath sounds. Respirations even and unlabored. ABDOMEN: BS positive x 4 quadrants. Soft, nondistended, nontender. No guarding or rebound. MSK: Amputee. NEURO: Follows commands. No focal deficits. SKIN: [place] without lesions or eruptions. PSYCH: Stable, no paranoia or delusional thinking. Objective Data Vital Signs Vital Signs: Vital Signs - 24 hr 10/24/24 14:00 10/24/24 20:00 10/24/24 21:20 Temperature 98.6 F Pulse Rate 50 L Respiratory Rate 18 Blood Pressure 127/48 L Pulse Oximetry 96 96 97 Oxygen Delivery Room Air Room Air Fraction of Inspired Oxygen 21 10/24/24 22:00 10/25/24 05:54 10/25/24 08:12 Temperature 98.7 F 97.5 F L Pulse Rate 57 L 59 L Respiratory Rate 16 16 16 Blood Pressure 118/59 L 146/59 H Pulse Oximetry 97 98 98 Oxygen Delivery Room Air Fraction of Inspired Oxygen 21 Intake/Output Intake/Output: Intake & Output 10/22/24 10/23/24 10/24/24 10/25/24 23:59 23:59 23:59 23:59 Intake Total 2534.3 860 1030 360 Output Total 1999 175 Balance 2534.3 -1140 855 360 Meds/Results Medications: Active Medications Generic Name Dose Route Start Last Admin Trade Name Freq PRN Reason Stop Dose Admin Acetaminophen 650 mg 10/19/24 13:21 Acetaminophen 325 Mg Tablet PO Q4H PRN Mild Pain (1-3) or Fever Hydrocodone Bitart/Acetaminophen 1 tab 10/19/24 13:21 Hydrocodone/Acetaminophen (*Crx) 5-325 Mg Tablet PO Q4H PRN Pain Rated 4-6 Atorvastatin Calcium 40 mg 10/19/24 21:00 10/24/24 20:33 Atorvastatin 40 Mg Tablet PO 40 mg HS SALVADOR Administration Dextrose 12.5 gm 10/19/24 19:21 Dextrose 50% 25 Gm/50 Ml Syringe IV PUSH PRN PRN Hypoglycemia Protocol Diphenoxylate HCl/Atropine 2 tablet 10/19/24 19:25 Diphenoxylate/Atropine (*Crx) 2.5 Mg Tablet PO TID PRN Diarrhea Ferrous Sulfate 325 mg 10/20/24 09:00 10/25/24 08:11 Ferrous Sulfate [address] BY MOUTH 325 mg DAILY [facility]ADOR Administration Fish Oil 1 gm 10/20/24 09:00 10/25/24 08:12 [place] 3 Polyunsat Fatty Acids 1 Gm Cap PO 1 gm DAILY SAL[facility]AD[facility] Administration Folic Acid 1 mg 10/20/24 09:00 10/25/24 08:11 Folic Acid 1 Mg Tablet PO 1 mg DAILY [facility] Administration Gabapentin 100 mg 10/19/24 21:00 10/24/24 20:33 Gabapentin 100 Mg Capsule PO 100 mg HS SALVADOR Administration Glucagon 1 mg 10/19/24 19:21 Glucagon For Inj 1 Mg Vial IM PRN PRN Hypoglycemia Protocol Glucose 15 gm 10/19/24 19:21 Glucose Oral Gel 15 Gm Of Glucse In 37.5 Gm Tube PO PRN PRN Hypoglycemia Protocol Guaifenesin 600 mg 10/19/24 20:13 Guaifenesin 200 Mg/10 Ml Udc PO Q8H PRN Cough Albumin Human 50 mls @ 999 mls/hr 10/19/24 15:40 Albutein IVPB 11/18/24 15:39 Q10M PRN HYPOTENSION Dextrose 1,000 mls @ 100 mls/hr 10/19/24 19:21 Dextrose 5% 1,000 Ml IVPB PRN PRN Hypoglycemia Protocol Insulin Aspart 3 - 6 units 10/20/24 08:00 10/25/24 11:45 Insulin Aspart (*Bkc) 100 Units/Ml SUB-Q Not Given TIDWM [facility] Protocol Insulin Aspart 1 - 3 units 10/19/24 21:00 10/25/24 03:41 Insulin Aspart (*Bkc) 100 Units/Ml SUB-Q Not Given HS SAL[facility]ADOR Protocol Meclizine HCl 25 mg 10/20/24 15:01 Meclizine Hcl 25 Mg Tablet PO Q8H PRN Dizziness Midodrine 10 mg 10/20/24 08:00 10/25/24 13:11 Midodrine Hcl 10 Mg Tablet PO 10 mg BID@0800,1400 [facility] Administration Midodrine 10 mg 10/21/24 05:19 Midodrine Hcl 10 Mg Tablet PO WITH DIALYSIS PRN Hypotension Mirtazapine 15 mg 10/19/24 21:00 10/24/24 20:33 Mirtazapine 15 Mg Tablet PO 15 mg HS SALVADOR Administration Multi-Ingred Cream/Lotion/Oil/Oint 1 applic 10/20/24 18:00 10/24/24 18:56 Eucerin Cream 120 Gm Jar TOPICAL 1 applic QPM [facility] Administration Multivitamins Therapeutic 1 tablet 10/21/24 09:00 10/25/24 08:11 Multivitamins Therapeutic Tab (*Bkc) PO 1 tablet DAILY [facility] Administration Senna/Docusate Sodium 1 tab 10/19/24 19:25 Senna/Docusate Sodium Tablet PO BID PRN Constipation Sertraline HCl 25 mg 10/19/24 21:00 10/24/24 20:33 Sertraline Hcl 25 Mg Tablet PO 25 mg HS SAL[facility]ADOR Administration Sevelamer Carbonate 800 mg 10/20/24 09:00 10/25/24 12:42 Sevelamer Carbonate 800 Mg Tablet PO 800 mg TID [facility] Administration Sitagliptin Phosphate 100 mg 10/20/24 09:00 10/25/24 08:11 Sitagliptin Phosphate 100 Mg Tablet PO 100 mg QAM [facility] Administration Tamsulosin HCl 0.4 mg 10/20/24 09:00 10/25/24 08:11 Tamsulosin Hcl 0.4 Mg Capsule PO 0.4 mg DAILY [facility]AD[facility] Administration Tizanidine HCl 2 mg 10/20/24 09:00 10/25/24 12:42 Tizanidine Hcl 2 Mg Tablet PO 2 mg TID SAL[facility]AD[facility] Administration Tramadol HCl 50 mg 10/19/24 19:25 Tramadol Hcl (*Crx) 50 Mg Tablet PO Q4H PRN Pain (Scale Score 4-6) Radiology Results: ITS Impressions Chest X-Ray 10/19/24 10:37 IMPRESSION: 1. Opacities in the right mid and lower lung zone which could represent atelecta sis or pneumonia. 2. Unchanged retrocardiac opacity corresponding to region of chronic round atelectasis in the left lower lobe. Modified Barium Swallow 10/21/24 11:33 IMPRESSION: Laryngeal penetration and aspiration with thin liquids. Please correlate with speech pathologist findings and specific feeding recommendations. Labs Labs: Laboratory Results - last 24 hr 10/24/24 10/24/24 10/25/24 17:07 20:41 06:34 WBC 4.5 RBC 2.84 L Hgb 9.7 L Hct 30.8 L MCV 108.5 H MCH 34.2 H MCHC 31.5 L RDW 16.2 H Plt Count 74 L MPV 13.4 H Immature Gran % (Auto) 0.7 H Neut % (Auto) 70.1 Lymph % (Auto) 13.5 L [place] % (Auto) 11.0 H Eos % (Auto) 4.0 Baso % (Auto) 0.7 Lymph # (Auto) 0.61 L [place] # (Auto) 0.5 Eos # (Auto) 0.2 Baso # (Auto) 0.0 Abs Immat Gran (auto) 0.03 Absolute Neuts (auto) 3.2 Absolute Nucleated RBC 0.000 Band Neutrophils % Not Reportable Nucleated RBC % 0.0 Platelet Estimate Decreased % Immature Plt Fraction 5.2 Macrocytosis 1+ Ovalocytes 1+ Schistocytes None seen Sodium 142 Potassium 4.6 Chloride 105 Carbon Dioxide 29 Anion Gap 8 BUN 29 H D Creatinine 5.54 H Estim Creat Clear Calc 13 Estimated GFR 11 L Glucose 112 H POC Capillary Glucose 129 H 133 H Calcium 8.3 L Total Bilirubin 0.7 AST 18 ALT 11 Alkaline Phosphatase 121 Total Protein 7.0 Albumin 3.0 L 10/25/24 10/25/24 07:43 11:43 WBC RBC Hgb Hct MCV MCH MCHC RDW Plt Count MPV Immature Gran % (Auto) Neut % (Auto) Lymph % (Auto) [place] % (Auto) Eos % (Auto) Baso % (Auto) Lymph # (Auto) [place] # (Auto) Eos # (Auto) Baso # (Auto) Abs Immat Gran (auto) Absolute Neuts (auto) Absolute Nucleated RBC Band Neutrophils % Nucleated RBC % Platelet Estimate % Immature Plt Fraction Macrocytosis Ovalocytes Schistocytes Sodium Potassium Chloride Carbon Dioxide Anion Gap BUN Creatinine Estim Creat Clear Calc Estimated GFR Glucose POC Capillary Glucose 113 H 131 H Calcium Total Bilirubin AST ALT Alkaline Phosphatase Total Protein Albumin Quality VTE Prophylaxis VTE prophylaxis: mechanical ordered Hospitalist MIPS Advance Care Plan I have confirmed that the patient's Advanced Care Plan is present, code status is documented, or surrogate decision maker is listed in patient medical record.: Yes Medication Reconciliation I have utilized all available resources to obtain, update and review the patients current medications (includes all prescriptions, OTC, herbals, cannabis, and nutritional supplements).: Yes
[2024-10-25 14:00] VITALS: BP 116/56; PULSE 54; RESP 18; TEMP 36.4; O2SAT 96
--- NOTE | 2024-10-25 14:31 | P.PNNP_ITS ---
Progress Note: A&P Assessment and Plan (1) ESRD (end stage renal disease): Code(s): N18.6 - End stage renal disease Status: Chronic Assessment and Plan: * HD tomorrow * continue M/W/F schedule while hospitalized * follow electrolytes, volume status, and clearance (2) Acute hypoxemic respiratory failure: Code(s): J96.01 - Acute respiratory failure with hypoxia Status: Acute Assessment and Plan: * resolving if not resolved * hypoxia noted on admission * weaned off supplemental oxygen * volume status okay * concern for possible pneumonia (see #3) (3) Pneumonia: Qualifiers: Laterality: left Lung location: lower lobe of lung Pneumonia type: due to unspecified organism Qualified Code(s): J18.9 - Pneumonia, unspecified organism Code(s): J18.9 - Pneumonia, unspecified organism Status: Acute Assessment and Plan: * suspected etiology of #2 * resident of nursing facility -- hospital/facility acquired infection/pneumonia(?) * follow culture data * on antibiotics * follow clinical status (4) Hematemesis: Code(s): K92.0 - Hematemesis Status: Acute Assessment and Plan: * reported history * follow trend of H/H * GI following -- EGD/colonoscopy later on 10/22 * no bleeding lesions noted -- only mild gastritis * capsule endoscopy as an outpatient (5) Anemia: Code(s): D64.9 - Anemia, unspecified Status: Chronic Assessment and Plan: * due to ESRD and possibly worsened by #3 and/or #4 * anemia studies suggest iron deficiency * however, would hold IV venofer given acute infection (see #3) * Epogen with HD * follow trend of H/H (6) Diabetes mellitus with multiple complications: Code(s): E11.8 - Type 2 diabetes mellitus with unspecified complications Status: Chronic Assessment and Plan: * follow Accu-Cheks * glycemic control per hospitalist Will continue to follow. L Subjective Date/time seen: 10/25/24 14:31 Interval history: Follow-up for end stage renal disease on hemodialysis. No apparent distress voiced at the time of my visit; overall, feels reasonably well; H/H as well as respiratory status have been fairly stable over the last 24 - 48 hours; no other acute complaints to report at this time. Exam 2 Narrative: General: WD/WN male in NAD Heart: normal S1 and S2; no rub Lungs: clear anteriorly Abdomen: soft, nontender, nondistended, positive bowel sounds; s/p bilateral BKAs Extremities: no cyanosis or clubbing; no edema Skin: warm and intact Objective Data Vital Signs Vital Signs: Vital Signs Temp Pulse Resp BP Pulse Ox O2 Del Method FiO2 10/25/24 14:00 97.5 F L 54 L 18 116/56 L 96 10/25/24 08:12 16 98 Room Air 10/25/24 05:54 97.5 F L 59 L 16 146/59 H 98 10/24/24 22:00 98.7 F 57 L 16 118/59 L 97 10/24/24 21:20 97 Room Air 21 10/24/24 20:00 96 Room Air Intake/Output Intake/Output: Intake & Output 10/22/24 10/23/24 10/24/24 10/25/24 23:59 23:59 23:59 23:59 Intake Total 2534.3 860 1030 600 Output Total 1999 175 Balance 2534.3 -1140 855 600 Meds/Results Medications: Active Medications Generic Name Dose Route Start Last Admin Trade Name Freq PRN Reason Stop Dose Admin Acetaminophen 650 mg 10/19/24 13:21 Acetaminophen 325 Mg Tablet PO Q4H PRN Mild Pain (1-3) or Fever Hydrocodone Bitart/Acetaminophen 1 tab 10/19/24 13:21 Hydrocodone/Acetaminophen (*Crx) 5-325 Mg Tablet PO Q4H PRN Pain Rated 4-6 Atorvastatin Calcium 40 mg 10/19/24 21:00 10/24/24 20:33 Atorvastatin 40 Mg Tablet PO 40 mg HS [facility] Administration Dextrose 12.5 gm 10/19/24 19:21 Dextrose 50% 25 Gm/50 Ml Syringe IV PUSH PRN PRN Hypoglycemia Protocol Diphenoxylate HCl/Atropine 2 tablet 10/19/24 19:25 Diphenoxylate/Atropine (*Crx) 2.5 Mg Tablet PO TID PRN Diarrhea Ferrous Sulfate 325 mg 10/20/24 09:00 10/25/24 08:11 Ferrous Sulfate [address] BY MOUTH 325 mg DAILY [facility] Administration Fish Oil 1 gm 10/20/24 09:00 10/25/24 08:12 [place] 3 Polyunsat Fatty Acids 1 Gm Cap PO 1 gm DAILY [facility] Administration Folic Acid 1 mg 10/20/24 09:00 10/25/24 08:11 Folic Acid 1 Mg Tablet PO 1 mg DAILY [facility] Administration Gabapentin 100 mg 10/19/24 21:00 10/24/24 20:33 Gabapentin 100 Mg Capsule PO 100 mg HS [facility] Administration Glucagon 1 mg 10/19/24 19:21 Glucagon For Inj 1 Mg Vial IM PRN PRN Hypoglycemia Protocol Glucose 15 gm 10/19/24 19:21 Glucose Oral Gel 15 Gm Of Glucse In 37.5 Gm Tube PO PRN PRN Hypoglycemia Protocol Guaifenesin 600 mg 10/19/24 20:13 Guaifenesin 200 Mg/10 Ml Udc PO Q8H PRN Cough Albumin Human 50 mls @ 999 mls/hr 10/19/24 15:40 Albutein IVPB 11/18/24 15:39 Q10M PRN HYPOTENSION Dextrose 1,000 mls @ 100 mls/hr 10/19/24 19:21 Dextrose 5% 1,000 Ml IVPB PRN PRN Hypoglycemia Protocol Insulin Aspart 3 - 6 units 10/20/24 08:00 10/25/24 16:54 Insulin Aspart (*Bkc) 100 Units/Ml SUB-Q Not Given TIDWM [facility] Protocol Insulin Aspart 1 - 3 units 10/19/24 21:00 10/25/24 03:41 Insulin Aspart (*Bkc) 100 Units/Ml SUB-Q Not Given HS [facility] Protocol Meclizine HCl 25 mg 10/20/24 15:01 Meclizine Hcl 25 Mg Tablet PO Q8H PRN Dizziness Midodrine 10 mg 10/20/24 08:00 10/25/24 13:11 Midodrine Hcl 10 Mg Tablet PO 10 mg BID@0800,1400 [facility] Administration Midodrine 10 mg 10/21/24 05:19 Midodrine Hcl 10 Mg Tablet PO WITH DIALYSIS PRN Hypotension Mirtazapine 15 mg 10/19/24 21:00 10/24/24 20:33 Mirtazapine 15 Mg Tablet PO 15 mg HS [facility] Administration Multi-Ingred Cream/Lotion/Oil/Oint 1 applic 10/20/24 18:00 10/25/24 17:00 Eucerin Cream 120 Gm Jar TOPICAL 1 applic QPM [facility] Administration Multivitamins Therapeutic 1 tablet 10/21/24 09:00 10/25/24 08:11 Multivitamins Therapeutic Tab (*Bkc) PO 1 tablet DAILY [facility] Administration Senna/Docusate Sodium 1 tab 10/19/24 19:25 Senna/Docusate Sodium Tablet PO BID PRN Constipation Sertraline HCl 25 mg 10/19/24 21:00 10/24/24 20:33 Sertraline Hcl 25 Mg Tablet PO 25 mg HS [facility] Administration Sevelamer Carbonate 800 mg 10/20/24 09:00 10/25/24 16:56 Sevelamer Carbonate 800 Mg Tablet PO 800 mg TID [facility] Administration Sitagliptin Phosphate 100 mg 10/20/24 09:00 10/25/24 08:11 Sitagliptin Phosphate 100 Mg Tablet PO 100 mg QAM [facility] Administration Tamsulosin HCl 0.4 mg 10/20/24 09:00 10/25/24 08:11 Tamsulosin Hcl 0.4 Mg Capsule PO 0.4 mg DAILY [facility] Administration Tizanidine HCl 2 mg 10/20/24 09:00 10/25/24 16:56 Tizanidine Hcl 2 Mg Tablet PO 2 mg TID [facility] Administration Tramadol HCl 50 mg 10/19/24 19:25 Tramadol Hcl (*Crx) 50 Mg Tablet PO Q4H PRN Pain (Scale Score 4-6) Radiology Results: ITS Impressions Chest X-Ray 10/19/24 10:37 IMPRESSION: 1. Opacities in the right mid and lower lung zone which could represent atelectasis or pneumonia. 2. Unchanged retrocardiac opacity corresponding to region of chronic round atelectasis in the left lower lobe. Modified Barium Swallow 10/21/24 11:33 IMPRESSION: Laryngeal penetration and aspiration with thin liquids. Please correlate with speech pathologist findings and specific feeding recommendations. Labs Labs: Laboratory Tests 10/25/24 06:34 10/25/24 06:34 Calcium 8.3 L Total Bilirubin 0.7 AST 18 ALT 11 Alkaline Phosphatase 121 Total Protein 7.0 Albumin 3.0 L Microbiology 10/19/24 13:02 Blood Blood Culture - Final 10/19/24 13:02 Blood Blood Culture - Final
[2024-10-25 16:46] LABS: Glucose Point of Care 129 mg/dl (65-105)
[2024-10-25] MEDS: EUCERIN CREAM 120 GM JAR 1 APPLIC TOPICAL (17:00)
--- NOTE | 2024-10-25 19:22 | PC.NURSE ---
ED called and I asked a question about ambulation status and I was told I do not have to give you any information, I have to clear out beds patient was sent to the floor with getting report from the ED as they refused to give any information. UPDATE: 1754 patient arrives to the floor in room 325-1. He was oriented to the call light. No vision, or hearing issues. No teeth and no dentures. When asked how he moves at [facility] he shrugged his shoulders. I asked if he used a cane, walker, or wheelchair. He replied yeah wheel chair , walker, whatever . Patient resting comfortably in bed. Whiteboard updated with the information I had at the time of his arrival to the floor at 175.
[2024-10-25] MEDS: ATORVASTATIN 40 MG TABLET PO (20:35)
[2024-10-25] MEDS: MIRTAZAPINE 15 MG TABLET PO (20:35)
[2024-10-25] MEDS: SERTRALINE HCL 25 MG TABLET PO (20:35)
[2024-10-25] MEDS: GABAPENTIN 100 MG CAPSULE PO (20:35)
[2024-10-25 22:00] VITALS: BP 141/61; PULSE 57; RESP 20; TEMP 36.4; O2SAT 97
[2024-10-25 23:51] LABS: Glucose Point of Care 126 mg/dl (65-105)
[2024-10-26] VITALS (22 sets, daily range): BP systolic 108–145; BP diastolic 51–64; PULSE 40–64; RESP 16–20; TEMP 36.6–37; O2SAT 99
[2024-10-26 07:36] LABS: Basophils Percent Auto 0.6 % (0.2-1.2); Eosinophils Absolute Auto 0.2 K/mm3 (0-0.3); Eosinophils Percent Auto 3.7 % (0-4.4); Hematocrit 31.8 % (42.0-52.0); Hemoglobin 9.9 g/dL (14.0-18.0); Immature Granulocyte Absolute 0.02 K/mm3 (0.00-0.031); Immature Granulocyte Percent A 0.4 % (0-0.5); Immature Platelet Fraction Pct 4.7 % (0.9-11.2); Lymphocytes Absolute Auto 0.61 K/mm3 (0.9-3.2); Lymphocytes Percent Auto 12.6 % (18.3-44.2); Mean Corpuscular HGB Conc 31.1 g/dl (32-36); Mean Corpuscular Hemoglobin 33.8 pg (26-34); Mean Corpuscular Volume 108.5 fl (80-100); Mean Platelet Volume 12.7 fl (7.4-10.4); Monocytes Absolute Auto 0.5 K/mm3 (0.1-0.6); Monocytes Percent Auto 10.4 % (2.6-8.5); Neutrophils Absolute Auto 3.5 K/mm3 (1.3-6.7); Neutrophils Percent Auto 72.3 % (45.5-73.1); Platelet Count Result 78 k/mm3 (150-375); Red Blood Count 2.93 M/mm3 (4.6-6.20); Red Cell Distribution Width 16.2 % (11.5-14.5); White Blood Count 4.8 K/mm3 (4.5-10.0)
[2024-10-26 08:05] LABS: Alanine Aminotransferase 11 U/L (6-50); Alkaline Phosphatase 126 U/L (38-126); Anion Gap 8 mmol/L (4-12); Aspartate Amino Transferase 21 U/L (17-59); Bilirubin,Total 0.7 mg/dL (0.2-1.3); Blood Urea Nitrogen 46 mg/dL (9-20); Calcium 8.1 mg/dL (8.4-10.2); Carbon Dioxide 27 mmol/L (22-30); Chloride 106 mmol/L (98-107); Estimated CRCL calculation 11 ml/min; Estimated Glomerular Filt Rate 9; Glucose 106 mg/dL (65-110); Potassium 5.9 mmol/L (3.4-5.0); Sodium 141 mmol/L (137-145)
[2024-10-26 08:19] LABS: Glucose Point of Care 98 mg/dl (65-105)
[2024-10-26 08:39] LABS: Anisocytosis 1+; Ovalocytes 1+; Platelet Estimate Decreased (Adequate); Schistocytes None Seen
[2024-10-26] MEDS: TIZANIDINE HCL 2 MG TABLET PO ×2 (09:01→13:30)
[2024-10-26] MEDS: TAMSULOSIN HCL 0.4 MG CAPSULE PO (09:01)
[2024-10-26] MEDS: OMEGA 3 POLYUNSAT FATTY ACIDS 1 GM CAP PO (09:01)
[2024-10-26] MEDS: SEVELAMER CARBONATE 800 MG TABLET PO ×2 (09:01→13:30)
[2024-10-26] MEDS: SITagliptin PHOSPHATE 100 MG TABLET PO (09:01)
[2024-10-26] MEDS: FERROUS SULFATE 325 MG TABLET DR BY MOUTH (09:02)
[2024-10-26] MEDS: FOLIC ACID 1 MG TABLET PO (09:02)
[2024-10-26] MEDS: MIDODRINE HCL 10 MG TABLET PO ×2 (09:02→13:30)
[2024-10-26] MEDS: MULTIVITAMINS THERAPEUTIC TAB (*BKC) 1 TABLET PO (09:02)
--- NOTE | 2024-10-26 09:07 | ECG_ITS ---
Test Date: 2024-10-26 10:11:08 Measurements Intervals [place] Rate: 60 P: 0 SD: 0 QRS: -61 QRSD: 134 T: 25 QT: 464 QTc: 466 Interpretive Statements SINUS RHYTHM WITH MARKED FIRST DEGREE AV BLOCK LEFT BUNDLE BRANCH BLOCK BASELINE WANDER- I, III, AVR, AVL ABNORMAL ECG Compared to ECG 10/19/2024 09:40:50 NO SIGNIFICANT CHANGE Electronically Signed On 10-26-2024 10:36:50 [employer] by Nasim Gee D.O.
[2024-10-26] MEDS: ALBUTEROL SULFATE NEB 2.5 MG/3 ML INH 1.25 MG INHALATION (09:24)
[2024-10-26 12:25] LABS: Glucose Point of Care 110 mg/dl (65-105)
--- NOTE | 2024-10-26 15:15 | P.PNNP_ITS ---
Progress Note: A&P Assessment and Plan (1) ESRD (end stage renal disease): Code(s): N18.6 - End stage renal disease Status: Chronic Assessment and Plan: * HD today * continue M/W/F schedule while hospitalized * follow electrolytes, volume status, and clearance (2) Acute hypoxemic respiratory failure: Code(s): J96.01 - Acute respiratory failure with hypoxia Status: Acute Assessment and Plan: * resolving if not resolved * hypoxia noted on admission * weaned off supplemental oxygen * volume status okay * concern for possible pneumonia (see #3) (3) Pneumonia: Qualifiers: Laterality: left Lung location: lower lobe of lung Pneumonia type: due to unspecified organism Qualified Code(s): J18.9 - Pneumonia, unspecified organism Code(s): J18.9 - Pneumonia, unspecified organism Status: Acute Assessment and Plan: * suspected etiology of #2 * resident of nursing facility -- hospital/facility acquired infection/pneumonia(?) * follow culture data * on antibiotics * follow clinical status (4) Hematemesis: Code(s): K92.0 - Hematemesis Status: Acute Assessment and Plan: * reported history * follow trend of H/H * GI following -- EGD/colonoscopy later on 10/22 * no bleeding lesions noted -- only mild gastritis * capsule endoscopy as an outpatient (5) Anemia: Code(s): D64.9 - Anemia, unspecified Status: Chronic Assessment and Plan: * due to ESRD and possibly worsened by #3 and/or #4 * anemia studies suggest iron deficiency * however, would hold IV venofer given acute infection (see #3) * Epogen with HD * follow trend of H/H (6) Diabetes mellitus with multiple complications: Code(s): E11.8 - Type 2 diabetes mellitus with unspecified complications Status: Chronic Assessment and Plan: * follow Accu-Cheks * glycemic control per hospitalist Not opposed to discharge from renal perspective if otherwise medically stable. Will continue to follow. L Subjective Date/time seen: 10/26/24 15:15 Interval history: Follow-up for end stage renal disease on hemodialysis. Tolerating dialysis treatment at the time of my visit (seen on HD at 3:05PM); no apparent distress noted when seen; no other acute complaints voiced; no issues/events overnight or earlier this morning; feels reasonably well; hoping to be discharged after dialysis today. Exam 2 Narrative: General: WD/WN male in NAD Heart: normal S1 and S2; no rub Lungs: clear anteriorly Abdomen: soft, nontender, nondistended, positive bowel sounds; s/p bilateral BKAs Extremities: no cyanosis or clubbing; no edema Skin: no rash or nodules Objective Data Vital Signs Vital Signs: Vital Signs Temp Pulse Resp BP Pulse Ox O2 Del Method 10/26/24 15:15 51 L 130/59 L 10/26/24 15:00 41 L 117/53 L 10/26/24 14:45 40 L 126/56 L 10/26/24 14:30 54 L 133/58 L 10/26/24 14:17 44 L 130/55 L 10/26/24 14:02 97.9 F 50 L 18 124/62 10/26/24 09:48 58 L 20 10/26/24 09:45 64 20 10/26/24 09:43 99 Room Air 10/26/24 08:00 Room Air 10/26/24 05:35 98.3 F 54 L 18 145/60 H 99 10/25/24 22:00 97.5 F L 57 L 20 141/61 H 97 10/25/24 20:00 Room Air Intake/Output Intake/Output: Intake & Output 10/23/24 10/24/24 10/25/24 10/26/24 23:59 23:59 23:59 23:59 Intake Total 860 1030 600 930 Output Total 2000 175 0 Balance -1140 855 600 930 Meds/Results Medications: Active Medications Generic Name Dose Route Start Last Admin Trade Name Freq PRN Reason Stop Dose Admin Acetaminophen 650 mg 10/19/24 13:21 Acetaminophen 325 Mg Tablet PO Q4H PRN Mild Pain (1-3) or Fever Hydrocodone Bitart/Acetaminophen 1 tab 10/19/24 13:21 Hydrocodone/Acetaminophen (*Crx) 5-325 Mg Tablet PO Q4H PRN Pain Rated 4-6 Atorvastatin Calcium 40 mg 10/19/24 21:00 10/25/24 20:35 Atorvastatin 40 Mg Tablet PO 40 mg HS [facility] Administration Dextrose 12.5 gm 10/19/24 19:21 Dextrose 50% 25 Gm/50 Ml Syringe IV PUSH PRN PRN Hypoglycemia Protocol Diphenoxylate HCl/Atropine 2 tablet 10/19/24 19:25 Diphenoxylate/Atropine (*Crx) 2.5 Mg Tablet PO TID PRN Diarrhea Epoetin [place]-epbx 10,000 units 10/26/24 19:04 10/26/24 15:30 Epoetin [place]-Epbx 10,000 Units/Ml Vial IV PUSH 10/26/24 19:05 10,000 units ONCE ONE Administration Ferrous Sulfate 325 mg 10/20/24 09:00 10/26/24 09:02 Ferrous Sulfate [address] BY MOUTH 325 mg DAILY [facility] Administration Fish Oil 1 gm 10/20/24 09:00 10/26/24 09:01 [place] 3 Polyunsat Fatty Acids 1 Gm Cap PO 1 gm DAILY [facility] Administration Folic Acid 1 mg 10/20/24 09:00 10/26/24 09:02 Folic Acid 1 Mg Tablet PO 1 mg DAILY [facility] Administration Gabapentin 100 mg 10/19/24 21:00 10/25/24 20:35 Gabapentin 100 Mg Capsule PO 100 mg HS [facility] Administration Glucagon 1 mg 10/19/24 19:21 Glucagon For Inj 1 Mg Vial IM PRN PRN Hypoglycemia Protocol Glucose 15 gm 10/19/24 19:21 Glucose Oral Gel 15 Gm Of Glucse In 37.5 Gm Tube PO PRN PRN Hypoglycemia Protocol Guaifenesin 600 mg 10/19/24 20:13 Guaifenesin 200 Mg/10 Ml Udc PO Q8H PRN Cough Albumin Human 50 mls @ 999 mls/hr 10/19/24 15:40 Albutein IVPB 11/18/24 15:39 Q10M PRN HYPOTENSION Dextrose 1,000 mls @ 100 mls/hr 10/19/24 19:21 Dextrose 5% 1,000 Ml IVPB PRN PRN Hypoglycemia Protocol Insulin Aspart 3 - 6 units 10/20/24 08:00 10/26/24 18:00 Insulin Aspart (*Bkc) 100 Units/Ml SUB-Q Not Given TIDWM [facility] Protocol Insulin Aspart 1 - 3 units 10/19/24 21:00 10/25/24 20:43 Insulin Aspart (*Bkc) 100 Units/Ml SUB-Q Not Given HS [facility] Protocol Meclizine HCl 25 mg 10/20/24 15:01 Meclizine Hcl 25 Mg Tablet PO Q8H PRN Dizziness Midodrine 10 mg 10/20/24 08:00 10/26/24 13:30 Midodrine Hcl 10 Mg Tablet PO 10 mg BID@0800,1400 [facility] Administration Midodrine 10 mg 10/21/24 05:19 Midodrine Hcl 10 Mg Tablet PO WITH DIALYSIS PRN Hypotension Mirtazapine 15 mg 10/19/24 21:00 10/25/24 20:35 Mirtazapine 15 Mg Tablet PO 15 mg HS [facility] [place] Administration Multi-Ingred Cream/Lotion/Oil/Oint 1 applic 10/20/24 18:00 10/26/24 18:00 Eucerin Cream 120 Gm Jar TOPICAL Not Given QPM [facility] Multivitamins Therapeutic 1 tablet 10/21/24 09:00 10/26/24 09:02 Multivitamins Therapeutic Tab (*Bkc) PO 1 tablet DAILY [facility] [place] Administration Senna/Docusate Sodium 1 tab 10/19/24 19:25 Senna/Docusate Sodium Tablet PO BID PRN Constipation Sertraline HCl 25 mg 10/19/24 21:00 10/25/24 20:35 Sertraline Hcl 25 Mg Tablet PO 25 mg HS [facility] [place] Administration Sevelamer Carbonate 800 mg 10/20/24 09:00 10/26/24 18:00 Sevelamer Carbonate 800 Mg Tablet PO Not Given TID [facility] Sitagliptin Phosphate 100 mg 10/20/24 09:00 10/26/24 09:01 Sitagliptin Phosphate 100 Mg Tablet PO 100 mg QAM [facility] Administration Tamsulosin HCl 0.4 mg 10/20/24 09:00 10/26/24 09:01 Tamsulosin Hcl 0.4 Mg Capsule PO 0.4 mg DAILY [facility] [place] Administration Tizanidine HCl 2 mg 10/20/24 09:00 10/26/24 18:00 Tizanidine Hcl 2 Mg Tablet PO Not Given TID [facility] Tramadol HCl 50 mg 10/19/24 19:25 Tramadol Hcl (*Crx) 50 Mg Tablet PO Q4H PRN Pain (Scale Score 4-6) Radiology Results: ITS Impressions Chest X-Ray 10/19/24 10:37 IMPRESSION: 1. Opacities in the right mid and lower lung zone which could represent atelectasis or pneumonia. 2. Unchanged retrocardiac opacity corresponding to region of chronic round atelectasis in the left lower lobe. Modified Barium Swallow 10/21/24 11:33 IMPRESSION: Laryngeal penetration and aspiration with thin liquids. Please correlate with speech pathologist findings and specific feeding recommendations. Labs Labs: Laboratory Tests 10/26/24 07:08 10/26/24 07:08 Calcium 8.1 L Total Bilirubin 0.7 AST 21 ALT 11 Alkaline Phosphatase 126 Total Protein 7.0 Albumin 3.0 L
[2024-10-26] MEDS: EPOETIN ALFA-EPBX 10,000 UNITS/ML VIAL 10000 UNITS IV PUSH (15:30)
--- NOTE | 2024-10-26 15:30 | P.DS_ITS ---
DS: Admitting Diagnosis Discharge Date 10/26/2024 Admitting Diagnosis Vomiting DS: Discharge Diagnosis Discharge Diagnosis (1) Acute respiratory failure with hypoxia: Code(s): J96.01 - Acute respiratory failure with hypoxia Status: Acute Assessment and Plan: * Chest x-ray suggesting pneumonia * currently on room air * patient was given azithromycin and and Rocephin, we will transition to Levaquin oral renally dosed 10/21 * No change to current treatment 10/22 - Hypoxia resolved, currently continuing abx. (2) Pneumonia: Qualifiers: Laterality: left Lung location: unspecified part of lung Pneumonia type: due to unspecified organism Qualified Code(s): J18.9 - Pneumonia, unspecified organism Code(s): J18.9 - Pneumonia, unspecified organism Status: Acute Assessment and Plan: * chest x-ray suggesting pneumonia * continue Levaquin * check mycoplasma, urine strep, urine Legionella * MRSA was negative 10/21 * Mycoplasma urine strep and urine Legionella all pending * Continue Levaquin renally dosed 10/22 10/22 - Hypoxia resolved, currently continuing abx. (3) Dysphagia: Code(s): R13.10 - Dysphagia, unspecified Status: Acute Assessment and Plan: * bedside swallow ordered * patient was noted to have dysphagia with bread and meat during initial assessment * currently on diabetic diet 10/21 * Patient went for modified barium swallow and was cleared for minced and moist and mildly thick liquids * Continue diabetic diet with new restriction * Speech therapy will follow and continue exercises 10/22 - Was tolerating the diet noted previously, undergoing bowel prep now. He notes hx of similar in the past. (4) Hematemesis: Code(s): K92.0 - Hematemesis Status: Acute Assessment and Plan: * patient reported 1 episode of hemoptysis * GI consulted * hemoglobin stable 10/21 * GI plans to take patient on Saturday for an EGD/colonoscopy * Continue clear liquid diet with thickened liquids 10/22 - Plan for EGD/colonoscopy originally for Saturday, but possibly today. No clear BM as of yet. (5) End-stage renal disease on hemodialysis: Code(s): N18.6 - End stage renal disease; Z99.2 - Dependence on renal dialysis Status: Acute Assessment and Plan: * nephrology consulted * plan for dialysis today * potassium 3.7, creatinine 3.44, EGFR 18 10/21 * HD today * Nephrology following * Creatinine 5.09, EGFR 12, potassium 3.9 10/22 - Stable labs. (6) Type 2 diabetes mellitus: Code(s): E11.9 - Type 2 diabetes mellitus without complications Status: Acute Assessment and Plan: * Blood sugars ranging 111-131 * Hgb A1C 5.2 on 02/08/2023 * will recheck hemoglobin A1c * Accu checks AC/HS * moderate dose SSI ordered * hypoglycemic protocol in place * Diabetic diet ordered * hold sitagliptin for now 10/22 - Stable, cont. current. (7) Macrocytic anemia: Code(s): D53.9 - Nutritional anemia, unspecified Status: Acute Assessment and Plan: * hemoglobin 8.9 * likely secondary to end-stage renal disease * (8) Thrombocytopenia: Code(s): D69.6 - Thrombocytopenia, unspecified Status: Acute Assessment and Plan: * platelet count 65 * continue to trend * likely secondary to end-stage renal disease 10/21 * Platelet count 72 * Continue to monitor * DS: Summary Hospital Course Hospital Course: 59-year-old male with history of gastritis, end-stage renal disease on hemodialysis, chronic anemia, combined systolic and diastolic congestive heart failure, coronary artery disease, hypertension, hyperlipidemia, type 2 diabetes mellitus, and other comorbidities who presented to the emergency department via EMS from [facility], [place], operated by [facility] for evaluation of vomiting. He is a fair historian and some of the following is supplemented via a review of his electronic medical records. He has not been feeling well since Saturday with reports of nonproductive cough, nausea, vomiting, and intermittent nonradiating, aching periumbilical pain (he has no complaints of abdominal pain at the time of my evaluation). This morning he reportedly had 1 episode of dark red emesis and he was sent in for evaluation. He also reports loose stools but states that is not unusual for him; he has diarrhea shortly after eating. With further questioning he also endorses occasional dysphagia with breads and meats. He denies fever, chills, sweats, sinus congestion, sore throat, epistaxis, chest pain, pleuritic pain, bloating, belching, melena, hematemesis, and concerns for aspiration. No known sick contacts. Of note, he is due for dialysis today. In the ED: SpO2 was 87% air. The remainder of his vital signs were stable. Labs are significant for WBC count of 10.3, hemoglobin 10.1, MCV 108.8, platelet 66, anion gap 14, BUN 46, creatinine 6.66, glucose 176, lipase 20. Respiratory panel was negative. Chest x-ray showed opacities in the right mid and lower lung zones which could be atelectasis or pneumonia. He received azithromycin 500 mg and ceftriaxone 1 g and he is being in setting for further treatment evaluation. Patient was evaluated by GI. Underwent Colonoscopy which shows polyp and in Endoscopy it shows moderate diffuse chronic superficial gastritis. GI reported these finding doesn't justify his iron deficiency anemia and placed OP referral for capsule endoscopy. Patient denies any episodes of vomiting and will be discharged after dialysis Status at Discharge Cognitive/behavioral status at discharge: Stable Time Spent with Patient Time attestation: Total time spent providing and/or coordinating discharge services:45 minutes Exam Narrative: GENERAL APPEARANCE: Appears to be in no acute distress. HEAD: normocephalic atraumatic EYES: PERRL, EOMI. Vision grossly intact. Pale conjunctiva. ENT: Hearing grossly intact, no nasal discharge NECK: Neck supple, trachea midline. CARDIAC: Normal S1/S2. Rhythm is regular. No murmurs, rubs, or gallops. No cyanosis or pallor. Extremities are warm and well perfused. LUNGS: Clear to auscultation without rales, rhonchi, wheezing. Bilaterally diminished breath sounds. Respirations even and unlabored. ABDOMEN: BS positive x 4 quadrants. Soft, nondistended, nontender. No guarding or rebound. MSK: Amputee. NEURO: Follows commands. No focal deficits. SKIN: Exira without lesions or eruptions. PSYCH: Stable, no paranoia or delusional thinking. DS: Data Data Completed and Pending Completed studies during hospitalization: Pending at discharge 10/22/24 15:41 Surgical [PTH] Routine Surgical [PTH] Routine Labs on day of discharge: Labs from last 24 hours 10/26/24 10/26/24 10/26/24 11:52 08:15 07:08 WBC 4.8 RBC 2.93 L Hgb 9.9 L Hct 31.8 L MCV 108.5 H MCH 33.8 MCHC 31.1 L RDW 16.2 H Plt Count 78 L MPV 12.7 H Immature Gran % (Auto) 0.4 Neut % (Auto) 72.3 Lymph % (Auto) 12.6 L Trinity % (Auto) 10.4 H Eos % (Auto) 3.7 Baso % (Auto) 0.6 Lymph # (Auto) 0.61 L Trinity # (Auto) 0.5 Eos # (Auto) 0.2 Baso # (Auto) 0.0 Abs Immat Gran (auto) 0.02 Absolute Neuts (auto) 3.5 Absolute Nucleated RBC 0.000 Band Neutrophils % Not Reportable Nucleated RBC % 0.0 Platelet Estimate Decreased % Immature Plt Fraction 4.7 Anisocytosis 1+ Ovalocytes 1+ Schistocytes None seen Sodium 141 Potassium 5.9 H Chloride 106 Carbon Dioxide 27 Anion Gap 8 BUN 46 H D Creatinine 6.67 H Estim Creat Clear Calc 11 Estimated GFR 9 L Glucose 106 POC Capillary Glucose 110 H 98 Calcium 8.1 L Total Bilirubin 0.7 AST 21 ALT 11 Alkaline Phosphatase 126 Total Protein 7.0 Albumin 3.0 L 10/25/24 10/25/24 20:42 16:38 WBC RBC Hgb Hct MCV MCH MCHC RDW Plt Count MPV Immature Gran % (Auto) Neut % (Auto) Lymph % (Auto) Trinity % (Auto) Eos % (Auto) Baso % (Auto) Lymph # (Auto) Trinity # (Auto) Eos # (Auto) Baso # (Auto) Abs Immat Gran (auto) Absolute Neuts (auto) Absolute Nucleated RBC Band Neutrophils % Nucleated RBC % Platelet Estimate % Immature Plt Fraction Anisocytosis Ovalocytes Schistocytes Sodium Potassium Chloride Carbon Dioxide Anion Gap BUN Creatinine Estim Creat Clear Calc Estimated GFR Glucose POC Capillary Glucose 126 H 129 H Calcium Total Bilirubin AST ALT Alkaline Phosphatase Total Protein Albumin Imaging Radiologist's impression: ITS Impressions Chest X-Ray 10/19/24 10:37 IMPRESSION: 1. Opacities in the right mid and lower lung zone which could represent atelectasis or pneumonia. 2. Unchanged retrocardiac opacity corresponding to region of chronic round atelectasis in the left lower lobe. Modified Barium Swallow 10/21/24 11:33 IMPRESSION: Laryngeal penetration and aspiration with thin liquids. Please correlate with speech pathologist findings and specific feeding recommendations. Discharge Plan Discharge Attending physician on discharge: Gómez Mullen Consulting providers: Kanungo,Sriraj T. Discharging Clinician: Gómez Mullen Patient Disposition: SNF Activity: as tolerated Diet: diabetic and renal Discharge Instructions: Underwent Colonoscopy which shows polyp and in Endoscopy it shows moderate diffuse chronic superficial gastritis. GI reported these finding doesn't justify his iron deficiency anemia and placed OP referral for capsule endoscopy. Check blood pressure 1 to 2 times a day. Record and bring into your doctor for review. Call your doctor if your blood pressure is greater than 180/110 or less than 90/45. Follow-up with your primary care provider , nephrology, GI in 1-2 weeks. Please call for appointment. Thank you for using [facility] for your health care needs. Patient Instructions: Heart Failure (GEN) Patient Language: Slovenian Stand Alone Forms: General Discharge Information Follow-up/Referrals: Will,MD Theodore [Primary Care Provider] - Eric Ceja MD [Physician] - Discharge Medications: Continued multivitamin Tablet 1 tablet PO DAILY ferrous sulfate 325 mg (65 mg iron) Tablet 325 mg PO DAILY nitroglycerin 0.4 mg Tablet, Sublingual 0.4 mg SUBLINGUAL Q5-15M PRN (Reason: Chest Pain) Rx Instructions: 3 dose max omega-3 fatty acids-fish oil 360-1,200 mg Capsule 1 cap PO DAILY atorvastatin [Lipitor] 40 mg Tablet 40 mg PO HS tamsulosin [Flomax] 0.4 mg Capsule 0.4 mg PO DAILY Rx Instructions: takes with evening meal folic acid 1 mg Tablet 1 mg PO DAILY gabapentin 100 mg Tablet 200 mg PO HS sevelamer carbonate 800 mg Tablet 800 mg PO TID mirtazapine 15 mg tablet 15 mg PO HS sertraline 50 mg tablet 25 mg PO HS Tradjenta 5 mg tablet 5 mg PO DAILY meclizine 25 mg Tablet 25 mg PO Q8H PRN (Reason: Dizziness) aspirin 81 mg Tablet 81 mg PO DAILY midodrine 10 mg Tablet 10 mg PO BID Rx Instructions: takes at 0800 and 1400 acetaminophen [Tylenol] 325 mg Tablet 650 mg PO Q6H PRN (Reason: Pain (Scale Score 1-3)) sennosides-docusate sodium [Senna Plus] 8.6-50 mg Tablet 1 tablet PO BID PRN (Reason: Constipation) naloxone 4 mg/actuation spray,non-aerosol 1 spray INTRANASAL Q3M PRN (Reason: Opioid Overdose) tizanidine 2 mg tablet 2 mg PO TID guaifenesin 100 mg/5 mL Syrup 600 mg PO Q8H PRN (Reason: Cough) Eucerin Cream 1 applic TOPICAL QPM diphenoxylate-atropine [Lomotil] 2.5-0.025 mg Tablet 2 tablet PO TID PRN (Reason: Diarrhea) Qty: 15 0RF Rx Instructions: do not exceed 10 days consecutively tramadol 50 mg tablet 50 mg PO Q4H PRN (Reason: Pain (Scale Score 4-6)) Qty: 15 0RF oxycodone 5 mg Tablet 5 mg PO Q4H PRN (Reason: Pain (Scale Score 7-10)) Qty: 15 0RF Date of admission: 10/19/24 15:10 Primary Care Provider: DellTheodore Admitting Provider: óGmez Mullen Attending physician on admission: Gómez Mullen Condition: Stable
== END 2024-10-26 19:15 | DRG 193 ==
LOC: ANHED 09:50 → ANH3MEDSUR 14:39
PROVIDERS: Internal Medicine Gastroenterology; Internal Medicine Nephrology; Nurse Practitioner Acute Care; Physician Assistant; Admitting Provider General Practice; Emergency Provider Emergency Medicine; PCP Internal Medicine; Visit Provider General Practice
PROC: 0DJ08ZZ Inspection of Upper Intestinal Tract, Via Natural or Artificial Opening Endoscopic (ICD-10-PCS; CPT 45378; principal; 2024-10-22 12:30)
DX: J18.9 Pneumonia, unspecified organism (principal); J96.01 Acute respiratory failure with hypoxia; N18.6 End stage renal disease; K92.0 Hematemesis; I50.42 Chronic combined systolic (congestive) and diastolic (congestive) heart failure; I13.2 Hypertensive heart and chronic kidney disease with heart failure and with stage 5 chronic kidney disease, or end stage renal disease; E11.22 Type 2 diabetes mellitus with diabetic chronic kidney disease; E78.5 Hyperlipidemia, unspecified; D50.9 Iron deficiency anemia, unspecified; I25.10 Atherosclerotic heart disease of native coronary artery without angina pectoris; E11.42 Type 2 diabetes mellitus with diabetic polyneuropathy; F41.8 Other specified anxiety disorders; I48.0 Paroxysmal atrial fibrillation; D63.1 Anemia in chronic kidney disease; G47.33 Obstructive sleep apnea (adult) (pediatric); K29.30 Chronic superficial gastritis without bleeding; M19.90 Unspecified osteoarthritis, unspecified site; R13.10 Dysphagia, unspecified; D53.9 Nutritional anemia, unspecified; D12.2 Benign neoplasm of ascending colon; D12.3 Benign neoplasm of transverse colon; D12.4 Benign neoplasm of descending colon; D12.5 Benign neoplasm of sigmoid colon; D69.59 Other secondary thrombocytopenia; Z66 Do not resuscitate; Z99.2 Dependence on renal dialysis; Z95.5 Presence of coronary angioplasty implant and graft; Z95.1 Presence of aortocoronary bypass graft; Z89.511 Acquired absence of right leg below knee; Z89.512 Acquired absence of left leg below knee; Z87.891 Personal history of nicotine dependence
CPT/HCPCS: 36415; 71045; 80048; 80053; 80069; 82607; 82728; 82746; 82948; 83036; 83540; 83550; 83690; 83735; 84100; 84443; 85025; 85027; 85055; 86706; 86738; 87040; 87070; 87205; 87340; 87637; 87641; 88305; 92526; 92610; 92611; 93005; 94640; 96361; 96365; 96368; 96375; 99285; A9270; G0257; G0378; J0456; J0696; J1644; J2003; J2405; J2470; J2704; J7030; J7040; P9047; Q5105

== ENCOUNTER 2024-12-22 05:19 | Outpatient (CLI) | payer MEDICARE, SELFPAY ==
--- NOTE | 2024-12-21 09:44 | SUR.PREOP ---
Spoke [facility] at the [facility]. She verified that they did receive the fax that had the instructions for the patients Givens capsule that is schedule for 12/22/24. Also verified that the patient will arrive at 6am.
--- OUTSIDE RECORDS SUMMARY | 2024-12-22 05:23 | XMS_ITS | Encounter Summary ---
Author Organization [facility] Address [address] [place] [address] Phone Care Team Providers Care Growth Hacker Name Role Phone Avery Tay MD Primary Care Provider [phone] No, Physician Primary Care Provider [phone] Avery Tay MD Primary Care Provider [phone] Mariposa Smalls RN Unavailable Warner Sidhu MD PhD Unavailable + Jewels Lamas MD Primary Care Provider + [phone] Mariposa Smalls RN Unavailable Frandy Colunga MD Unavailable [phone] Alcon Quintanilla DPM Unavailable [phone] No, Physician Primary Care Provider [phone] Theodore Solis MD Unavailable [phone] Leah MARINO MD, Raul Woodard Unavailable + [phone] Encounter Details Date Type Department Care Team (Latest Contact Info) Description 09/06/2017 Orders Only [facility] CONVERSION Scanning, Provider Social History Tobacco Use Types Packs/Day Years Used Date Smoking Tobacco: Never Assessed Sex and Gender Information Value Date Recorded Sex Assigned at Not on file Legal Sex Male 4:17 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 OPERATOR MAINTAINER Gender Identity Not on file Sexual Orientation Not on file documented as of this encounter Plan of Treatment Not on file documented as of this encounter Procedures Procedure Name Priority Date/Time Associated Diagnosis Comments VASCULAR LABORATORY REPORT 09/12/2017 3:49 PM SEAMARK ADVANCED OPERATOR MAINTAINER VASCULAR LABORATORY REPORT 09/06/2017 2:11 PM SEAMARK ADVANCED OPERATOR MAINTAINER VASCULAR LABORATORY REPORT 09/06/2017 1:55 PM SEAMARK ADVANCED OPERATOR MAINTAINER documented in this encounter Results * VASCULAR LABORATORY REPORT (09/12/2017 3:49 PM SEAMARK ADVANCED OPERATOR MAINTAINER) Anatomical Region Laterality Modality Ultrasound us Provider Scanning CV VASCULAR PROCEDURES Final R esult * VASCULAR LABORATORY REPORT (09/06/2017 2:11 PM SEAMARK ADVANCED OPERATOR MAINTAINER) Anatomical Region Laterality Modality Ultrasound us Provider Scanning CV VASCULAR PROCEDURES Final R esult * VASCULAR LABORATORY REPORT (09/06/2017 1:55 PM SEAMARK ADVANCED OPERATOR MAINTAINER) Anatomical Region Laterality Modality Ultrasound us Provider [...] was positive for COVID19 on 08/07/20 at [facility]; lab in Care Everywhere. There are no present respiratory concerns for this admission. Patient presents for wound assessment and management. Pt meets Recovered criteria. Becka Nation RN 09/13/2020 09/13/2020 09/13/2020 11:00 PM SEAMARK ADVANCED OPERATOR MAINTAINER COVID: Recovered Comment:09/13/2020 IP Review - See note below regarding prior positive on 08/07/20 at [facility]. Spoke to ED team and there are no respiratory concerns at this time. Becka Nation RN 09/13/2020 09/13/2020 04/05/2021 3:05 AM C DT MRSA 11/14/2020 11/18/2020 10/31/2021 4:00 AM SEAMARK ADVANCED OPERATOR MAINTAINER COVID: Suspected 02/13/2021 02/13/2021 02/13/2021 10:13 PM CDT COVID: Suspected 04/22/2021 04/22/2021 04/22/2021 7:17 AM CDT VRE 05/19/2021 05/19/2021 11/15/2021 3:05 AM CDT COVID: Suspected 12/06/2022 12/06/2022 12/06/2022 2:04 PM CDT COVID: Suspected 03/10/2023 03/10/2023 03/10/2023 10:14 AM CDT MRSA 03/11/2023 04/16/2023 10/13/2023 3:05 AM SEAMARK ADVANCED OPERATOR MAINTAINER MDR gram neg/ESBL 04/16/2023 04/16/2023 C. difficile 04/26/2023 04/26/2023 documented as of this encounter Care Teams Growth Hacker Relationship Specialty Start Date End Date Avery Tay MD [address] [place] [address] [place] [address] PCP - General 05/31/17 11/15/19 No, Physician PCP - General 11/16/19 02/23/20 Avery Tay MD [address] [place] [address] [place] [address] PCP - General 02/24/20 09/05/20 Jewels Lamas MD [address] [address] PCP - General Family Practice 09/06/20 02/13/23 No, Physician PCP - General 02/14/23 Mariposa Smalls, NOEMI [address] [address] Acupuncture Physician Cardiology 06/30/20 Warner Sidhu MD PhD [address] [address] Relief Charge Nurse Cardiology 06/30/20 03/29/21 Mariposa Smalls, RN [address] [address] Acupuncture Physician Cardiology 06/30/20 Frandy Colunga MD [address] [address] Surgeon Vascular Surgery 02/28/21 Alcon Quintanilla DPM [address] [address] Surgeon Podiatry 02/28/21 Theodore Solis MD [address] [place] [address] Consulting Physician Internal Medicine 03/16/23 Raul Lynn IV, MD [address] [place] [address] Consulting Physician General Surgery 04/30/23 documented as of this encounter
--- OUTSIDE RECORDS SUMMARY | 2024-12-22 05:23 | XMS_ITS | Encounter Summary ---
Author Organization [facility] Address [address] [place] [address] Care Team Providers Care Model Maker Plastic Name Role Phone Mariposa Smalls RN Unavailable Warner Sidhu MD PhD Unavailable + Jewels Lamas MD Primary Care Provider [phone] Mariposa Smalls RN Unavailable Frandy Colunga MD Unavailable [phone] Alcon Quintanilla DPM Unavailable [phone] No, Physician Primary Care Provider [phone] Theodore Solis MD Unavailable [phone] Leah MARINO MD, Lyman Lansing Unavailable [phone] Encounter Details Date Type Department Care Team (Late st Contact Info) Description 12/08/[address] [facility] [address] [place] [address] Elena Monzon LCSW Social History Tobacco Use [...] declined 06/20/2020 How often do you attend catholic or zoroastrian serv ices? Patient declined 06/20/2020 Do you belong to any clubs o r organizations such as catholic groups, unions, fraternal or athletic groups, or [...] on file Legal Sex Male 4:17 AM HIP HOP ARTIST Gender Identity Not on file Sexual Orientation [...] below regarding prior positive on 08/07/20 at [facility]. Spoke to ED team and there are no respiratory concerns at this time. Becka Nation RN 09/13/2020 09/13/2020 04/05/2021 3:05 AM C DT MRSA 11/14/2020 11/18/2020 10/31/2021 4:00 AM HIP HOP ARTIST COVID: Suspected 02/13/2021 02/13/2021 02/13/2021 10:13 PM CDT COVID: Suspected 04/22/2021 04/22/2021 04/22/2021 7:17 AM CDT VRE 05/19/2021 05/19/2021 11/15/2021 3:05 AM CDT COVID: Suspected 12/06/2022 12/06/2022 12/06/2022 2:04 PM CDT COVID: Suspected 03/10/2023 03/10/2023 03/10/2023 10:14 AM CDT MRSA 03/11/2023 04/16/2023 10/13/2023 3:05 AM HIP HOP ARTIST MDR gram neg/ESBL 04/16/2023 04/16/2023 C. difficile 04/26/2023 04/26/2023 documented as of this encounter Care Teams Model Maker Plastic Relationship Specialty Start Date End Date Jewels Lamas MD [address] [address] PCP - General Family Practice 09/06/20 02/13/23 No, Physician PCP - General 02/14/23 Mariposa Smalls RN [address] [address] Mixer Operator Tablets Cardiology 06/30/20 Warner Sidhu MD PhD [address] [address] Piano Professor Cardiology 06/30/20 03/29/21 Mariposa Smalls RN [address] [address] Mixer Operator Tablets Cardiology 06/30/20 Frandy Colunga MD [address] [facility] [address] [place] [address] Surgeon Vascular Surgery 02/28/21 Alcon Quintanilla DPM [address] [facility] [address] [place] [address] Surgeon Podiatry 02/28/21 Theodore Solis MD [address] [place] [address] Consulting Physician Internal Medicine 03/16/23 Raul Lynn IV, MD [facility] [address] [address] Consulting Physician General Surgery 04/30/23 documented as of this encounter
--- OUTSIDE RECORDS SUMMARY | 2024-12-22 05:23 | XMS_ITS ---
Author Organization [facility] [address] Address [address] [place] [address] Care Team Providers Care Worship Director Name Role Phone Frandy Colunga MD Unavailable [phone] Alcon Quintanilla DPM Unavailable [phone] No, Physician Primary Care Provider [phone] Theodore Solis MD Unavailable [phone] Leah MARINO MD, Raul Woodrad Unavailable Dialysis Access Sites Type Status Location [...] 5:16 AM CDT COLONOSCOPY 11/03/2021 12:44 PM MUSHROOM LABORER HEPATITIS C ANTIBODY Routine 09/20/2020 8:35 PM MUSHROOM LABORER from Last 3 Months or Most Recently [...] signs of displacement. Discussed extensively with director informatics and therapy. We will proceed with therapy [...] I reminded patient has sister and director informatics at this appointment at [facility] at 1:[address] Bradley. [...] presented with mental status changes from the [facility] and found to have acute cholecystitis. Likely acute metabolic encephalopathy. Treat underlying cause. Mental status is improving. Closed left subtrochanteric femur fracture, sequ christiana 02/28/2023 Assessment & Plan (04/09/2023 7:04 PM CDT): Ortho fu pending, don aware Assessment & Plan (04/03/2023 5:26 PM CDT): Nonoperative management was recommended at [facility] earlier this summer. We will arrange outpatient follow up with Orthopedics but seems to be asymptomatic on that leg Assessment & Plan (03/26/2023 3:12 PM CDT): As per HPI, pain seems somewhat better controlled on current regimen. Recent x- rays did not show any new fractures. I reminded director informatics the patient appears to still need appointment made with [facility] at [facility]. Phone #[phone] Assessment & Plan (03/18/2023 4:48 PM CDT): [...] pain control with oxycodone. Discussed with director informatics about getting follow up with Orthopedics in [...] seems to be slowly improving. Reminded director informatics that patient has on April 23 appointment with Neurosurgery at [facility] at 1:30 p.m. along with the details [...] be clinically improving neurologically. Discussed with director informatics about getting neurosurgery follow up in about [...] 08/08/2021 Assessment & Plan (10/27/2021 3:09 PM MUSHROOM LABORER): EGD/Colonoscopy scheduled for 11/03/21 Hold aspirin 10/29/21 Assessment & Plan (08/15/2021 1:41 PM MUSHROOM LABORER): Patient was referred for colonoscopy and has appointment with GI. Abdominal pain has resolved. Assessment & Plan (08/08/2021 12:33 PM MUSHROOM LABORER): Last colonoscopy 2012 (Unavailable). Recurrent rectal pain and diarrhea. No hemorrhoids. Check CBC. Encounter for surgical after care following surgery of circulatory system 06/16/2021 Chronic diarrhea 06/06/2021 Assessment & Plan (10/03/2021 9:10 AM MUSHROOM LABORER): Pt was given Lomotil due to diarrhea and now c/o constipation. Resume questran and loperamide when constipation resolved. Assessment & Plan (07/28/2021 12:53 PM MUSHROOM LABORER): Pt was given Lomotil due to diarrhea and now c/o constipation. Resume questran and loperamide when constipation resolved. Assessment & Plan (07/18/2021 1:25 PM MUSHROOM LABORER): Continue cholestyramine and loperamide. Assessment & Plan [...] patient S/P bilateral BKA (below knee amputation) 2020 Assessment & Plan (04/09/2023 7:04 PM CDT): [...] therapy Assessment & Plan (10/03/2021 9:09 AM MUSHROOM LABORER): Patient's pain is controlled with [place] Patient needs AKA wound functional level for prosthesis for transfer and ambulation on level surfaces at a fixed candence Assessment & Plan (06/14/2021 2:19 PM CDT): Percocet change to [place] as patient could not tolerate Assessment & Plan (05/31/2021 1:38 PM CDT): Continue PT/OT. Recurrent major depressive disorder, in remissio n 05/31/2021 Assessment & Plan (03/18/2023 4:46 PM CDT): Cont remeron, stable but fluctuates due to recent hosp stay and illnesses Assessment & Plan (07/28/2021 12:53 PM MUSHROOM LABORER): Continue Remeron and Zoloft. Assessment & Plan [...] tomorrow. Assessment & Plan (10/03/2021 9:11 AM MUSHROOM LABORER): Continue Tradjenta and Glargine. Blood sugars have been stable between 70 and 150 Assessment & Plan (09/05/2021 12:27 PM MUSHROOM LABORER): Continue Tradjenta and Glargine. Check A1c every 90 days. Assessment & Plan (08/01/2021 11:57 AM MUSHROOM LABORER): Blood glucose 110 - 138 Continue Glargine and Tradjenta Assessment & Plan (07/18/2021 1:24 PM MUSHROOM LABORER): Continue Tradjenta and glargine insulin. Assessment & Plan (06/29/2021 1:46 PM CDT): Stable on Tradjenta and glargine insulin. Assessment & Plan (06/06/2021 2:02 PM CDT): Continue Tradjenta and glargine Assessment & Plan (05/31/2021 1:46 PM CDT): Continue glargine and Tradjenta. Hypophosphatemia 05/30/2021 Assessment & Plan (05/30/2021 10:08 AM CDT): - Held sevelamer for low phosphorous level. - Given IV phos per renal 05/29 terminal gauger (current) use of antibiotics Assessment & Plan [...] chair or laying in bed. Atrial fibrillation 02/22/2021 Assessment & Plan (03/18/2023 4:45 PM CDT): Stable and rate controlled, on asa, need to hold off other oac due to hx of ich Assessment & Plan (10/03/2021 9:09 AM MUSHROOM LABORER): Not on anticoagulation. Continue Metoprolol, Aspirin. Assessment & Plan (08/01/2021 11:54 AM MUSHROOM LABORER): Not on anticoagulation. Continue Metoprolol, Aspirin. Assessment & Plan (05/16/2021 9:05 AM CDT): - Not on anticoagulation - Continue metoprolol Assessment & Plan (02/22/2021 10:43 AM CDT): - Not on anticoagulation - Continue metoprolol Fall 02/22/2021 Assessment & Plan (02/22/2021 3:28 PM CDT): - Patient fell at facility 02/21 CLE[employer]ER [employer]NS, states he rolled out of bed and [...] QAM if tolerating. Gangrene of right foot 11/15/2020 Assessment & Plan (05/26/2021 7:20 AM [...] (12/05/2020): Added automatically from request for surgery [id number] End-stage renal disease on hemodialysis 09/14/19 Assessment & Plan (04/09/2023 7:04 PM CDT): [...] hemodialysis. Assessment & Plan (10/27/2021 3:10 PM MUSHROOM LABORER): Continue hemodialysis weekly. Assessment & Plan (08/07/2021 10:27 AM MUSHROOM LABORER): Currently on Sevelamer and Ferrous sulfate. Hemodialysis three days weekly. Assessment & Plan (07/14/2021 1:51 PM MUSHROOM LABORER): Continue Sevelamer and Ferrous sulfate. Assessment & [...] schedule Assessment & Plan (09/21/2020 8:33 AM MUSHROOM LABORER): - ESRD on dialysis as of August 2020. Dialysis access via tunneled catheter. Current HD schedule M/W/F. - Consulted renal for iHD; patient to be dialyzed M/W/F - Currently trying to switch home HD units to ease transportation issue with new SNF - Social work discussing with renal coordinator Severe protein-calorie malnutrition 09/14/2020 Assessment & Plan (05/23/2021 7:38 AM CDT): - BMI 23 - Appreciate nutrition recs. - Nephrovite started. Assessment & Plan (02/24/2021 2:51 PM CDT): - BMI 25 - Nutrition consult: Continue renal, consistent carb diet Ordered Nepro TID. Encouraged the pt to drink them between meals. Continue multivitamin, Folic acid, iron, Renvela. Assessment & Plan (09/15/2020 11:00 AM MUSHROOM LABORER): - Related to increased needs, chronic illness/injury and wounds - Nutrition consulted - Consistent carb diet. Will allow double portions of meat. - Supplements ordered Foot ulcer due to secondary DM 09/13/2020 Assessment & Plan (09/21/2020 8:32 AM MUSHROOM LABORER): Right foot wounds appeared about 1 month [...] Continue aspirin + Plavix daily Atherosclerosis of stebbins artery of right lower extremity 09/06/2020 Overview (09/06/2020): Added automatically from request for surgery [id number] Peripheral arterial disease ([facility]) 09/06/2020 Overview (09/06/2020): Added automatically from request for surgery [id number] Assessment & Plan (03/06/2023 4:14 PM CDT): Continue medical management with statin. Patient is status post bilateral amputations for this reason Assessment & Plan (10/03/2021 9:13 AM MUSHROOM LABORER): Patient to continue aspirin Assessment & Plan [...] chair Assessment & Plan (09/18/2020 8:47 AM MUSHROOM LABORER): - s/p left BKA 05/2020. Presents now [...] AM labs. Likely secondary to prolonged epistaxis 06/24-1023 overnight coupled with underlying anemia - guaiac positive, however this may be due to recent epistaxis - transfuse and follow Assessment & Plan (06/25/2020 2:36 PM CDT): - iron deficient - Infed, 1 unit PRBC - guaiac stools - follow S/P below knee amputation, right 06/23/2020 Assessment & Plan (09/05/2021 12:26 PM MUSHROOM LABORER): Continue working with PT/OT. Follow up outpatient for prosthetic. Assessment & Plan (08/15/2021 1:43 PM MUSHROOM LABORER): Continue PT/OT Continue outpatient follow up for prosthetic on 08/21/21 (2pm), 08/28/21 (11am), and 09/06/21 (11am). Assessment & Plan (08/08/2021 12:35 PM MUSHROOM LABORER): Seen outpatient for prosthetic yesterday and has follow up again 08/21/21 (2pm), 08/28/21 (11am), and 09/06/21 (11am) Assessment & Plan (08/07/2021 10:29 AM MUSHROOM LABORER): Denies phanthom limb pain. Pain controlled cyclobenzaprine, Acetaminophen, and Gabapentin. Assessment & Plan (08/01/2021 11:53 AM MUSHROOM LABORER): Continue Aspirin and Gabapentin. Pain well controlled. Assessment & Plan (07/07/2021 12:45 PM CDT): Follow-up outpatient for prosthesis ([place]) Continue gabapentin, acetaminophen, and physical and occupational therapy as tolerated. Assessment & Plan (06/29/2021 1:45 PM CDT): Patient measured for below-knee central office associate is yesterday and will follow-up for fitting ([place]). Incision well-healed. Continue PT/OT. Continue gabapentin and acetaminophen. Assessment & Plan (06/19/2021 1:55 PM CDT): Patient had follow-up with vascular surgeon. Sutures removed and patient recommended for residual limb central office associate. Pain well controlled. Continue PT/OT Assessment & Plan (06/08/2021 3:02 PM CDT): Patient unable to tolerate oxycodone due to increased confusion. Discussed with MD and will discontinue oxycodone and changed to [place] to help with postoperative pain. Assessment & [...] and OT Bed will be available at [facility] tomorrow Patient was not accepted at [facility] rehab per director of social work Assessment & Plan (06/29/2020 9:55 AM CDT): [...] Ruthy in place - monitor BMP - Lokelma [...] sy stolic and diastolic congestive heart failure 05/19/2020 Assessment & Plan (07/14/2021 1:52 PM MUSHROOM LABORER): Continue Lasix 40 mg daily Assessment & Plan (09/15/2020 10:36 AM MUSHROOM LABORER): - Echo from 05/2020 LVEF 34% otherwise [...] increased to 100mg tid, isordil 40 tid - TTE showing LVEF 34%, pulmonary hypertension [...] degree HB on tele w/ very prolonged PA interval and resting bradycardia to mid 50-60s [...] degree HB on tele w/ very prolonged PA interval and resting bradycardia to mid 50-60s [...] degree HB on tele w/ very prolonged PA interval and resting bradycardia to mid 50s, [...] degree HB on tele w/ very prolonged PA interval and resting bradycardia to mid 50s, [...] degree HB on tele w/ very prolonged PA interval, consider restarting - on Entresto 49-51 [...] degree HB on tele w/ very prolonged PA interval, consider restarting - on Entresto 49-51 [...] degree HB on tele w/ very prolonged PA interval. Restart if able. - on Entresto [...] degree HB on tele w/ very prolonged PA interval. Restart if able. - on Entresto [...] Plan (05/19/2020 9:20 AM CDT): - BNP 02992 - Restart home carvedilol - Diuresis 2017 [...] diarrhea --> loperamide Gangrene of left foot 05/18/2020 Overview (05/18/2020): Added automatically from request for surgery [id number] Assessment & Plan (06/01/2020 10:34 AM CDT): [...] (05/19/2020): Added automatically from request for surgery [id number] Assessment & Plan (02/28/2023 9:46 AM CDT): [...] eye. Assessment & Plan (09/22/2019 3:29 PM MUSHROOM LABORER): New cataract evaluation today Mature cataract OS [...] weeks later plano, monofocal IOLM/Bscan Atrial flutter 11/08/2017 Assessment & Plan (06/30/2020 10:44 AM CDT): History of post-op AF - Not on AC on admission, ECG on admission with NSR with severely prolonged PA - as noted above, resuming low dose coreg - telemetry Assessment & Plan (06/29/2020 9:55 AM CDT): History of post-op AF - Not on AC on admission, ECG on admission with NSR with severely prolonged PA - as noted above, resuming low dose coreg - telemetry Assessment & Plan (06/28/2020 10:30 AM CDT): History of post-op AF - Not on AC on admission, ECG on admission with NSR with severely prolonged PA - Holding coreg for now while on dobutamine - telemetry Assessment & Plan (06/27/2020 1:26 PM CDT): History of post-op AF - Not on AC on admission, ECG on admission with NSR with severely prolonged PA - Holding coreg for now while on dobutamine - telemetry Assessment & Plan (06/26/2020 12:02 PM CDT): History of post-op AF - Not on AC on admission, ECG on admission with NSR with severely prolonged PA - Holding coreg for now while on dobutamine - telemetry Assessment & Plan (06/25/2020 2:28 PM CDT): History of post-op AF - Not on AC on admission, ECG on admission with NSR with severely prolonged PA - Holding coreg for now while on dobutamine - telemetry Assessment & Plan (06/24/2020 3:35 PM CDT): History of post-op AF - Not on AC on admission, ECG on admission with NSR with severely prolonged PA - Holding coreg for now while on dobutamine - telemetry Assessment & Plan (06/23/2020 9:22 AM CDT): History of post-op AF - Not on AC on admission, ECG on admission with NSR with severely prolonged PA - Holding coreg for now while on dobutamine - telemetry Assessment & Plan (06/22/2020 12:01 PM CDT): History of post-op AF - Not on AC on admission, ECG on admission with NSR with severely prolonged PA - Holding coreg for now while on dobutamine - telemetry Assessment & Plan (06/21/2020 10:44 AM CDT): History of post-op AF - Not on AC on admission, ECG on admission with NSR with severely prolonged PA - Holding coreg for now while on dobutamine - telemetry Assessment & Plan (06/20/2020 11:49 AM CDT): History of post-op AF - Not on AC on admission, ECG on admission with NSR with severely prolonged PA - Holding coreg for now while on [...] - Pt remains under wound care at [facility]. - Discussed with patient the rational for treatment, culture results, risk of recurrent infection, signs/symptoms of recurrent infection, and to contact ID clinic with any questions or concerns. Assessment & Plan (06/30/2020 10:47 AM CDT): S/p L BKA - Continue daily wound care - PT/OT eval and treat Patient will be going to [facility] rehabilitation tomorrow. Assessment & Plan (06/29/2020 9:57 [...] Obesity 01/03/2015 Diabetes mellitus type II, uncontrolled ([facility] ) 08/18/2013 Overview (05/26/2020): May 2020: C-peptide [...] QID Assessment & Plan (09/15/2020 10:36 AM MUSHROOM LABORER): - Hgb A1c 8.5% 05/2020, 5.5% 09/2019 [...] as current doses - follow-up with his terminal worker at [facility] for long-term therapy decisions. Consider GLP-1 agonist [...] plavix Assessment & Plan (09/14/2020 11:01 AM MUSHROOM LABORER): - s/p CABG [address] Sae [...] minimize risk of hypoglycemia Diabetic peripheral neuropathy 12/25/2011 Assessment & Plan (03/18/2023 4:45 PM CDT): [...] Isordil Assessment & Plan (09/17/2020 6:52 AM MUSHROOM LABORER): - VS Q4 hrs - Continue home Lasix, hydralazine, metoprolol, Isordil Assessment & Plan (06/28/2020 10:41 AM CDT): - Elevated blood pressure - continue hydralazine 100 mg tid, isosorbide 40 mg tid - Coreg held with recent PRECISION INSTRUMENT AND TOOL MAKER, likely resume low dose tomorrow Assessment & Plan (06/27/2020 1:27 PM CDT): - Elevated blood pressure - continue hydralazine 100 mg tid, isosorbide 40 mg tid - Coreg held with recent PRECISION INSTRUMENT AND TOOL MAKER, likely resume tomorrow Assessment & Plan (06/26/2020 12:05 PM CDT): -Elevated blood pressure - continue hydralazine 100 mg tid, isosorbide 40 mg tid -Coreg held while on PRECISION INSTRUMENT AND TOOL MAKER Assessment & Plan (06/25/2020 2:31 PM CDT): -Elevated blood pressure - continue hydralazine 100 mg tid, isosorbide 40 mg tid -Coreg held while on PRECISION INSTRUMENT AND TOOL MAKER Assessment & Plan (06/24/2020 3:58 PM CDT): -Elevated blood pressure - continue hydralazine 100 mg tid, isosorbide 40 mg tid -Coreg held while on PRECISION INSTRUMENT AND TOOL MAKER Assessment & Plan (06/23/2020 10:00 AM CDT): Elevated blood pressure - continue hydralazine 100 mg tid, isosorbide 40 mg tid Off carvedilol while being on dobutamine Continue to monitor Assessment & Plan (05/31/2020 11:11 AM CDT): On home carvedilol, held due to 1st degree HB with prolonged PA interval, borderline HR (56-60) - Start amlodipine 5mg Assessment & Plan (05/30/2020 1:28 PM CDT): On home carvedilol, held due to 1st degree HB with prolonged PA interval, borderline HR (56-60) - Start amlodipine 5mg Assessment & Plan (05/29/2020 10:58 AM CDT): On home carvedilol, held due to 1st degree HB with prolonged PA interval, borderline HR (56-60) - Start amlodipine 5mg Assessment & Plan (05/26/2020 12:36 PM CDT): On home carvedilol, held due to 1st degree HB with prolonged PA interval, borderline HR (56-60) - Start amlodipine 5mg Assessment & Plan (04/09/2018 2:22 PM CDT): Blood pressure within target Immunizations Immunization Administration Dates Next Due Influenza, Quadrivalent, Spl it, Preservative Free, Intramuscular 07/01/2020 Influenza, Unspecified 06/16/2017,06/02/2017 Social History Tobacco Use Types Packs/Day Years Used Date Smoking Tobacco: Former Cigarettes 0.5 42 1 2019 Smokeless Tobacco: Never Comments:on and off [...] often do you attend chur ch or jewish services? Never 03/12/2023 Do you belong to any clubs o r organizations such as sabianism groups, unions, fraternal or athletic groups, or [...] place to sleep or slept in a custodial (including now)? No 03/12/2023 Personal Safety Answer Date Recorded Have you ever been in or are you currently in a harmful physical or emotional relationship or is someone making you feel afraid or unsafe? Denies 04/16/2023 Sex and Gender Information Value Date Recorded Sex Assigned at Not on file Legal Sex Male 4:17 AM MUSHROOM LABORER Gender Identity Not on file Sexual Orientation [...] MD LAB BLOOD ORDERABLES Final Result [facility] [address] [facility] Department [place] [address] * Hemoglobin A1c (02/15/2023 5:16 AM CDT) [...] Arias MD LAB BLOOD ORDERABLES Final Result [facility] Department [place] [address] * (ABNORMAL) Lipid panel (02/15/2023 5:16 AM CDT) Cholesterol 75 30 - 199 mg/dL [facility] Comment: Interpretive Data Ages < or [...] revised on 2018. Triglycerides 81 <=149 mg/dL [facility] Comment: Interpretive Data Ages < or [...] on 2018. HDL 26(L) >=40 mg/dL [facility] Comment: Interpretive Data Ages < or [...] on 2018. LDL, calculated 33 <=129 mg/dL [facility] Comment: Interpretive Data Ages < or [...] revised on 2018. Non-HDL Cholesterol 49 mg/dL [facility] Comment: Interpretive Data Ages < or [...] last revised on 2018. Chol/HDL ratio 3 [facility] Blood 02/15/2023 5:16 AM CDT 02/15/2023 5:57 AM CDT us Marcella Arias MD LAB BLOOD ORDERABLES Final Result [facility] Department [place] [address] * COLONOSCOPY (11/03/2021 12:44 PM MUSHROOM LABORER) Anatomical Region Laterality Modality Other Narrative Procedure Note Brayden Lerma MD - 11/03/2021 12:44 PM CST [facility] Endoscopy Lab Patient Name: Kobi Salter Procedure Date: 11/03/2021 12:44 PM Date of : 1965 Admit Type: Outpatient Age: 56 Gender: Male Note Status: Finalized Attending MD: Brayden Lerma M.D. Procedure Date: 11/03/2021 Procedure: Colonoscopy Indications: Chronic diarrhea Patient Profile: This is a 56 year old male. Diarrhea. Providers: Brayden Lerma M.D., Teresa Ross, TANYA (Anesthesia Staff), Gini Izquierdo RN, Jose A Vuong,Executive Sous Chef Referring MD: Jewels Lamas M.D. Medicines: Monitored [...] bowel preparation was evaluated using the BBPS (Adena Bowel Preparation Scale)with scores of: Right Colon [...] screeningpurposes. Electronically signed by Brayden Lerma MD rBayden Lerma M.D. 11/03/2021 1:50:58 PM Number of Addenda: 0 Note Initiated On: 11/03/2021 12:44 PM us Brayden Lerma MD ENDOSCOPY PROCEDURES Final Re sult * Hepatitis C antibody (09/20/2020 8:35 PM MUSHROOM LABORER) Hep C Ab Nonreactive Nonreactive [facility] Comment:Antibodies to HCV no t detected. Does NOT exclude the possibility of recent exposure to HCV. Blood specimen (specimen) 09/20/2020 8:35 PM MUSHROOM LABORER 09/20/2020 10:17 PM MUSHROOM LABORER us Jasson Teague NP LAB MICROBIOLOGY - GENE RAL ORDERABLES Final Result [facility] Department [place] [address] from Last 3 Months or Most Recently Relevant to Health Maintenance
--- OUTSIDE RECORDS SUMMARY | 2024-12-22 05:23 | XMS_ITS ---
Author Organization 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 Role Phone Clara Rodriguez Unavailable Unavailable Gee Michaels Unavailable Unavailable Jason Madison Unavailable Angie Enamorado Unavailable Unavailable Cary Bates Unavailable Unavailable Fahim, Magid Unavailable Unavailable Allergies and adverse reactions Code CodeSystem Substance Reaction Severity StartDate Concern Status 7984 RXNORM Penicillin Unknown 09/24/2020 active Bee Venoms Unknown 09/24/2020 active Care Team Name Role Address Phone Organization Dates Gee Michaels PCP [address] [place], [address], [place]Office[place] : [facility] 03/01/2021 - 05/16/2021 Clara Rodriguez Attending Physician [address], [place], [address], [place]Office): [facility] 03/01/2021 - 05/16/2021 Jason Madison Attending Physician [address], [place], [address], [place]Office): [facility] 03/01/2021 - 05/16/2021 Angie Craven Attending Physician [address], [place], [address], [place]Office): : [facility] 03/01/2021 - 05/16/2021 Cary Bates Attending Physician [address], [place], [address], [place]Office): [facility] 03/01/2021 - 05/16/2021 Asia La Attending Physician [address], [place], [address], [place]Office): [facility] 03/01/2021 - 05/16/2021 Goals Section Description Status Target Date Current level of care is marko ropriate considering current physical/ social/ emotional status. Active 06/24/2021 IMPAIRED SKIN will exhibit s igns of healing evidenced by decrease in size, improved appearance, and be free from signs & symptoms of infection Active 06/24/2021 If the resident's heart stop s, or if they stop breathing, CPR WILL be initiated in honor with their FULL code wishes ongoing through next review date Active 06/24/2021 Minimize complications regarding infection Activ e 06/24/2021 Minimize the risk of residen t exposure to the novel Coronavirus (COVID-19). Active 06/24/2021 Pressure ulcer (s) will exhi bit signs of healing evidenced by decrease in size, improved appearance, and be free from signs & symptoms of infection by (specify) Active 06/24/2021 Prevent a serious fall related injury Active 06/24/2021 Resident risk for recurrence of urinary tract infection will be minimized through next review Active 06/24/2021 Resident will be FREE OF UNE XPECTED COMPLICATIONS related to cardiac concerns Active 06/24/2021 Resident will be encouraged to express their wishes regarding life prolonging procedures or appointment of a decision maker in writing or orally by next review date: Active 06/24/2021 Resident will be free from s igns and symptoms of abnormal bleeding through the next review date. Active 06/24/2021 Resident will be free of com plications related to ADL deficit through next review date: Active 06/24/2021 Resident will have INTACT SK IN, free of redness, blisters, or discoloration over a bony prominence Active 06/24/2021 Resident will have a regular bowel elimination pattern AEB soft/formed bowel movements at least once every three days through the next review: Active 06/24/2021 Resident will have adequate fluid volume balance AEB good skin turgor, pink & moist mucous membranes, and sufficient fluid intake through next review date Active 06/24/2021 Resident will have adequate fluid volume balance AEB good skin turgor, pink & moist mucous membranes, and sufficient fluid intake through next review. Active 06/24/2021 Resident will have no compli cations related to oral health concerns Active 06/24/2021 Resident will maintain ADEQUATE NUTRITION levels . Active 06/24/2021 Resident will not develop any NEW areas of skin BREAKDOWN Active 06/24/2021 Resident will not develop an y complications associated with genitourinary dx through next review Active 06/24/2021 Resident will not develop an y new areas of skin breakdown through next review date: Active 06/24/2021 Resident will not experience further declines in functional ROM. Active 06/24/2021 Resident will participate in ordered therapy ser vices Active 06/24/2021 Resident will verbalize unde rstanding of potential risks and benefits associated with his/her choices. Active 06/24/2021 Residents preferences will be honored as able Ac tive 06/24/2021 The resident will be free fr om complications of cardiac problems through the review date. Active 06/24/2021 The resident will be free fr om s/sx of complications of poor circulation through the review date. Active 06/24/2021 The resident will be/remain free of medication related complications, including abnormal movement disorder, discomfort, hypotension, gait disturbance, ADL decline or cognitive/behavioral impairment through review date. Active 06/24/2021 The resident will demonstrat e adjustment to halfway placement by/through review date. Active 06/24/2021 The resident will have all n eeded items and materials to fully engage in preferred individual INDEPENDENT pursuits Active The resident will have no co mplications from hyper or hypoglycemia through the review date. Active 06/24/2021 The resident will have no in dications of psychosocial well-being problem by/through review date. Active 06/24/2021 The resident will maintain o ptimal quality of life within limitation imposed by visual function through the review date. Active 06/24/2021 The resident will not receiv e any medications they have known allergies to. Active 06/24/2021 The resident will not sustai n a fall related injury by utilizing fall precautions through the review date. Active 06/24/2021 The resident will remain zion e of complications related to altered hematological status through the review date. Active 06/24/20 21 Immunizations Immunization Status Vaccine Details Vaccine Code CodeSystem Date Notes TB 2 Step Mantoux Skin Test completed tuberculin skin test; unspecified formulation lotNumber: [id number] expiry: 12/01/2020 Mfg: [employer] Given 0.1 ml Left Forearm subcutaneously Step 1 of Multi-step with next step required 98 CVX created date: 09/25/2020 consent date: 09/24/2020 administer ed date: 09/25/2020 Educated by Ariel on 09/24/2020 Pneumovax (PCV 13)([id number]) completed pneumococcal conjugate vaccine, 13 valent 133 CVX created date: 12/22/2020 administer ed date: 08/02/2020 given in community SARS-COV-2 (COVID-19) completed SARS-COV-2 (COVID-19) vaccine, mRNA, spike protein, LNP, preservative free, 30 mcg/0.3mL dose Mfg: pfizer (EUA) Given 0.3 ml Left Deltoid intramuscularly Step 2 of Multi-step with next step required 208 CVX created date: 03/22/2021 consent date: 03/22/2021 administer ed date: 03/21/2021 SARS-COV-2 (COVID-19) completed SARS-COV-2 (COVID-19) vaccine, vector non-replicating, recombinant spike protein-ChAdOx1, preservative free, 0.5 mL Mfg: RedVision System Given 0.3 ml intramuscularly Step 1 of Multi-step with next step required 210 CVX created date: 02/03/2021 consent date: 02/03/2021 administer ed date: 02/20/2021 Mental Status Section Date Assessment Total Score Description 05/16/2021 BIMS 15 cognitively int act CAM 0 No delirium ind icated PHQ-9 06 mild depression 04/14/2021 BIMS 15 cognitively int act CAM 0 No delirium ind icated PHQ-9 06 mild depression Problems Problem # Description Date of onset Resolved Date Code CodeSystem Concern Status 1 EPISTAXIS 04/20/[address] active 2 BENIGN PROSTATIC HYPERPLASIA WITHOUT LOWER URINARY TRACT SYMPTOMS 03/01/[address] active 3 CHRONIC MULTIFOCAL OSTEOMYELITIS, UNSPECIFIED SITE 03/01/[address] active 4 FOLATE DEFICIENCY ANEMIA, UNSPECIFIED 03/01/[address] active 5 HYPERTENSIVE HEART AND CHRONIC KIDNEY DISEASE WITH HEART FAILURE AND WITH STAGE 5 CHRONIC KIDNEY DISEASE, OR END STAGE RENAL DISEASE 03/01/[address] active 6 OTHER MUSCLE SPASM 03/01/[address] active 7 IRRITABLE BOWEL SYNDROME WITH DIARRHEA 02/10/[address] active 8 ACUTE POSTHEMORRHAGIC ANEMIA 12/30/[address] active 9 CHRONIC COMBINED SYSTOLIC (CONGESTIVE) AND DIASTOLIC (CONGESTIVE) HEART FAILURE 12/30/[address] active 10 COMPLETE TRAUMATIC AMPUTATION AT LEVEL BETWEEN KNEE AND ANKLE, LEFT LOWER LEG, SUBSEQUENT ENCOUNTER 12/30/[address] active 11 CONSTIPATION, UNSPECIFIED 12/30/[address] active 12 GASTROINTESTINAL HEMORRHAGE, UNSPECIFIED 12/30/[address] active 13 NONINFECTIVE GASTROENTERITIS AND COLITIS, UNSPECIFIED 12/30/[address] active 14 ENCOUNTER FOR CHANGE OR REMOVAL OF SURGICAL WOUND DRESSING 12/24/[address] active 15 OTHER LACK OF COORDINATION 12/13/[address] active 16 ANEMIA IN CHRONIC KIDNEY DISEASE 12/12/[address] active 17 CATARACT EXTRACTION STATUS, RIGHT EYE 12/12/[address] active 18 GANGRENE, NOT ELSEWHERE CLASSIFIED 12/12/[address] active 19 MAJOR DEPRESSIVE DISORDER, RECURRENT, UNSPECIFIED 12/12/[address] active 20 METABOLIC ACIDEMIA IN , UNSPECIFIED 12/12/[address] active 21 UNSPECIFIED ATRIAL FLUTTER 12/12/[address] active 22 UNSPECIFIED HEARING LOSS, UNSPECIFIED EAR 12/12/[address] active 23 NON-PRESSURE CHRONIC ULCER OF SKIN OF OTHER SITES WITH UNSPECIFIED SEVERITY 10/28/[address] active 24 ENTEROCOLITIS DUE TO CLOSTRIDIUM DIFFICILE, NOT SPECIFIED RECURRENT 10/12/[address] active 25 DIFFICULTY IN WALKING, NOT ELSEWHERE CLASSIFIED 09/27/[address] active 26 MUSCLE WEAKNESS (GENERALIZED) 09/26/[address] active 27 ACIDOSIS 09/24/[address] active 28 ACQUIRED ABSENCE OF LEFT LEG BELOW KNEE 09/24/[address] active 29 ACTIVATED PROTEIN C RESISTANCE 09/24/[address] active 30 ACUTE KIDNEY FAILURE, UNSPECIFIED 09/24/[address] active 31 ACUTE ON CHRONIC COMBINED SYSTOLIC (CONGESTIVE) AND DIASTOLIC (CONGESTIVE) HEART FAILURE 09/24/[address] active 32 AGE-RELATED NUCLEAR CATARACT, RIGHT EYE 09/24/[address] active 33 ANEMIA, UNSPECIFIED 09/24/[address] active 34 APHAKIA, LEFT EYE 09/24/[address] active 35 ATHEROSCLEROTIC HEART DISEASE OF [place] CORONARY ARTERY WITHOUT ANGINA PECTORIS 09/24/[address] active 36 END STAGE RENAL DISEASE 09/24/[address] active 37 ESSENTIAL (PRIMARY) HYPERTENSION 09/24/[address] active 38 HYPERKALEMIA 09/24/[address] active 39 HYPERLIPIDEMIA, UNSPECIFIED 09/24/[address] active 40 LEFT VENTRICULAR FAILURE, UNSPECIFIED 09/24/[address] active 41 MALE ERECTILE DYSFUNCTION, UNSPECIFIED 09/24/[address] active 42 NONSPECIFIC INTRAVENTRICULAR BLOCK 09/24/[address] active 43 OBESITY, UNSPECIFIED 09/24/[address] active 44 OSTEOMYELITIS, UNSPECIFIED 09/24/[address] active 45 PERIPHERAL VASCULAR DISEASE, UNSPECIFIED 09/24/[address] active 46 PRESENCE OF AORTOCORONARY BYPASS GRAFT 09/24/[address] active 47 PRESSURE ULCER OF RIGHT HEEL, UNSPECIFIED STAGE 09/24/[address] active 48 SHORTNESS OF BREATH 09/24/[address] active 49 TYPE 2 DIABETES MELLITUS WITH DIABETIC NEUROPATHY, UNSPECIFIED 09/24/[address] active 50 TYPE 2 DIABETES MELLITUS WITHOUT COMPLICATIONS 09/24/[address] active 51 UNSPECIFIED ATRIAL FIBRILLATION 09/24/[address] active 52 UNSPECIFIED PROTEIN-CALORIE MALNUTRITION 09/24/[address] active 53 URINARY TRACT INFECTION, SITE NOT SPECIFIED 09/24/[address] active 54 VITAMIN D DEFICIENCY, UNSPECIFIED 09/24/[address] active Reason for Referral No Reasons for Referral Entered Social History Social History Observation Description Start Date End Date Code Code System Current Smoking Status Tobacco smoking consumption unknown 961603789 SNOMED CT Sex Assigned At Male 1965 73007-9 [facility] Vital Signs Code Code System Vitals Name Values and Units Timing Information 02950-9 [facility] Pain Level Value=0.0 05/16/2021 8462-4 [facility] Blood Pressure-Diastolic Value=52 Un its=mmHg 05/16/2021 8480-6 [facility] Blood Pressure-Systolic Mhwuj=779 Un its=mmHg 05/16/2021 8310-5 [facility] Body Temperature Value=97.6 Units= F 05/16/2021 63402-2 [facility] O2 % BldC Oximetry Value=97.0 Units= % 05/16/2021 2339-0 [facility] Blood Sugar Oodpe=834.0 Units=mg/dL 05/16/2021 9279-1 [facility] Respiratory Rate Value=20.0 Units=/m in 05/15/2021 8867-4 [facility] Heart rate Value=75.0 Units=/min 09555-7 [facility] Weight Yvzce=534.0 Units=Lbs 03/2021 8302-2 [facility] Height Value=72.0 Units=Inches 03/01/2021
--- OUTSIDE RECORDS SUMMARY | 2024-12-22 05:23 | XMS_ITS | Clinical Summary ---
Author Organization [facility] Address [address] [place] [address] Care Team Providers Care Digital Art Director Name Role Phone Guerita Paulino MD Primary Care Provider [phone] Allergies Active Allergy Reactions Criticality Noted Date [...] often do you attend chur ch or judaism services? Never 07/28/2020 Do you belong to any clubs o r organizations such as bahai groups, unions, fraternal or athletic groups, or [...] medical care, and heating? Somewhat hard 07/28/2020 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 Legal Sex Male 4:30 PM CDT Gender Identity Male 07/28/2020 4:01 PM CUR[employer] WORKER Sexual Orientation Straight 07/28/2020 4: 01 PM CURB WORKER Last Filed Vital Signs Vital Sign Reading Time Taken Comments Blood Pressure 141/56 08/15/2020 11:15 AM CURB WORKER Pulse 64 08/15/2020 11:15 AM CURB WORKER Temperature 36.9 C (98.4 F) 08/15/2020 11:15 AM CURB WORKER Respiratory Rate 18 08/15/2020 11:1 5 AM CURB WORKER Oxygen Saturation 91% 08/15/2020 11: 15 AM CURB WORKER Inhaled Oxygen Concentration - - Weight 106.8 kg (235 lb 7.2 oz) 08/15/2020 4:10 AM CURB WORKER Height 182.9 cm (6') 07/28/2020 8:44 AM CURB WORKER Body Mass Index 31.93 07/28/2020 8:44 AM CURB WORKER Plan of Treatment Health Maintenance Due Date Last Done Comments Colorectal Cancer Screening Colonoscopy (10 Years) 1965 Annual Physical 1966 Hepatitis C 1981 DTaP, Tdap and Td Vaccines ( 1 - Tdap) 1982 Pneumococcal Vaccine: 50+ Ye ars (1 of 1 - PCV) 2013 Zoster Vaccines (1 of 2) 2013 COVID-19 Vaccine (1 - 2023-2 5 season) 2024 PHQ-2 (Physician [place]) 09/02/2024 RSV Immunization or 60+ Years (1 - 1-dose 75+ series) 2038 Meningococcal B Vaccine Aged Out No l onger eligible based on patient's age to complete this topic Meningococcal Vaccine Aged Out No zainab nandini eligible based on patient's age to complete this topic RSV Immunizations Under 20 Months Aged Out No longer eligible based on patient's age to complete this topic Medical Devices Implanted Type Area Estate Administrator Device Identifier Shelf Expiration Date Model / Serial / Lot Set Cath 23cm 15fr 18ga .038in Polyure Arw Smp Ar - [id number] Implanted:Qty : 1 on 08/12/2020 by Eliecer Oropeza MD at [facility] Catheter Implant N/A: Neck [employer] - DIV OF [employer] [id number] / / Insurance [place] Advance Directives * Full Code (Latest Code Status on File) Date Activated Date Inactivated Comments 08/12/2020 3:26 PM 08/15/2020 6:39 PM * Full Code Date Activated Date Inactivated Comments 07/28/2020 1:38 PM 08/12/2020 3:26 PM Care Teams Digital Art Director Relationship Specialty Start Date End [place] [address] PCP - General INTERNAL MEDICINE 07/28/20
--- OUTSIDE RECORDS SUMMARY | 2024-12-22 05:23 | XMS_ITS | Clinical Summary ---
Author Organization [facility] [place] [address] Address [address] [place] [address] Care Team Providers Care Provider Relations Specialist Name Role Phone Frandy Colunga MD Unavailable [phone] Alcon QuintanillaM Unavailable No, Physician Primary Care Provider Theodore Solis MD Unavailable [phone] Leah MARINO MD, [place] Unavailable [phone] Allergies Active Allergy Reactions Criticality Noted Date [...] no signs of displacement. Discussed extensively with wellness director and therapy. We will proceed with [...] GI. I reminded patient has sister and wellness director at this appointment at [facility] at 1:[address] Bradley. [...] presented with mental status changes from the detention and found to have acute cholecystitis. Likely acute metabolic encephalopathy. Treat underlying cause. Mental status is improving. Closed left subtrochanteric femur fracture, sequ christiana 02/28/2023 Assessment & Plan (04/09/2023 7:04 PM CDT): Ortho fu pending, aquilino phan Assessment & Plan (04/03/2023 5:26 PM CDT): Nonoperative management was recommended at [facility] earlier this summer. We will arrange outpatient follow up with Orthopedics but seems to be asymptomatic on that leg Assessment & Plan (03/26/2023 3:12 PM CDT): As per HPI, pain seems somewhat better controlled on current regimen. Recent x- rays did not show any new fractures. I reminded wellness director the patient appears to still need appointment made with Orthopedics at [place]. Phone #[phone] Assessment & Plan (03/18/2023 4:48 PM CDT): [...] as pain control with oxycodone. Discussed with wellness director about getting follow up with Orthopedics [...] status seems to be slowly improving. Reminded wellness director that patient has on April 23 appointment with Neurosurgery at [facility] at 1:30 p.m. along with the details [...] to be clinically improving neurologically. Discussed with wellness director about getting neurosurgery follow up in [...] 08/08/2021 Assessment & Plan (10/27/2021 3:09 PM ASSOCIATE PROFESSOR OF SOCIOLOGY): EGD/Colonoscopy scheduled for 11/03/21 Hold aspirin 10/29/21 Assessment & Plan (08/15/2021 1:41 PM ASSOCIATE PROFESSOR OF SOCIOLOGY): Patient was referred for colonoscopy and has appointment with GI. Abdominal pain has resolved. Assessment & Plan (08/08/2021 12:33 PM ASSOCIATE PROFESSOR OF SOCIOLOGY): Last colonoscopy 2012 (Unavailable). Recurrent rectal pain and diarrhea. No hemorrhoids. Check CBC. Encounter for surgical after care following surgery of circulatory system 06/16/2021 Chronic diarrhea 06/06/2021 Assessment & Plan (10/03/2021 9:10 AM ASSOCIATE PROFESSOR OF SOCIOLOGY): Pt was given Lomotil due to diarrhea and now c/o constipation. Resume questran and loperamide when constipation resolved. Assessment & Plan (07/28/2021 12:53 PM ASSOCIATE PROFESSOR OF SOCIOLOGY): Pt was given Lomotil due to diarrhea and now c/o constipation. Resume questran and loperamide when constipation resolved. Assessment & Plan (07/18/2021 1:25 PM ASSOCIATE PROFESSOR OF SOCIOLOGY): Continue cholestyramine and loperamide. Assessment & Plan [...] therapy Assessment & Plan (10/03/2021 9:09 AM ASSOCIATE PROFESSOR OF SOCIOLOGY): Patient's pain is controlled with Langhorne Patient needs AKA wound functional level for prosthesis for transfer and ambulation on level surfaces at a fixed candence Assessment & Plan (06/14/2021 2:19 PM CDT): Percocet change to Langhorne as patient could not tolerate Assessment & Plan (05/31/2021 1:38 PM CDT): Continue PT/OT. Recurrent major depressive disorder, in remissio n 05/31/2021 Assessment & Plan (03/18/2023 4:46 PM CDT): Cont remeron, stable but fluctuates due to recent hosp stay and illnesses Assessment & Plan (07/28/2021 12:53 PM ASSOCIATE PROFESSOR OF SOCIOLOGY): Continue Remeron and Zoloft. Assessment & Plan [...] tomorrow. Assessment & Plan (10/03/2021 9:11 AM ASSOCIATE PROFESSOR OF SOCIOLOGY): Continue Tradjenta and Glargine. Blood sugars have been stable between 70 and 150 Assessment & Plan (09/05/2021 12:27 PM ASSOCIATE PROFESSOR OF SOCIOLOGY): Continue Tradjenta and Glargine. Check A1c every 90 days. Assessment & Plan (08/01/2021 11:57 AM ASSOCIATE PROFESSOR OF SOCIOLOGY): Blood glucose 110 - 138 Continue Glargine and Tradjenta Assessment & Plan (07/18/2021 1:24 PM ASSOCIATE PROFESSOR OF SOCIOLOGY): Continue Tradjenta and glargine insulin. Assessment & Plan (06/29/2021 1:46 PM CDT): Stable on Tradjenta and glargine insulin. Assessment & Plan (06/06/2021 2:02 PM CDT): Continue Tradjenta and glargine Assessment & Plan (05/31/2021 1:46 PM CDT): Continue glargine and Tradjenta. Hypophosphatemia 05/30/2021 Assessment & Plan (05/30/2021 10:08 AM CDT): - Held sevelamer for low phosphorous level. - Given IV phos per renal [facility] (current) use of antibiotics Assessment & Plan [...] ich Assessment & Plan (10/03/2021 9:09 AM ASSOCIATE PROFESSOR OF SOCIOLOGY): Not on anticoagulation. Continue Metoprolol, Aspirin. Assessment & Plan (08/01/2021 11:54 AM ASSOCIATE PROFESSOR OF SOCIOLOGY): Not on anticoagulation. Continue Metoprolol, Aspirin. 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 Assessment & Plan (10/27/2021 3:10 PM ASSOCIATE PROFESSOR OF SOCIOLOGY): Continue hemodialysis weekly. Assessment & Plan (08/07/2021 10:27 AM ASSOCIATE PROFESSOR OF SOCIOLOGY): Currently on Sevelamer and Ferrous sulfate. Hemodialysis three days weekly. Assessment & Plan (07/14/2021 1:51 PM ASSOCIATE PROFESSOR OF SOCIOLOGY): Continue Sevelamer and Ferrous sulfate. Assessment & [...] (05/21/2021 9:20 AM CDT): - Outpatient HD T/TH/Sat via right brachiocephalic AV fistula created 02/22/21 [...] schedule Assessment & Plan (09/21/2020 8:33 AM ASSOCIATE PROFESSOR OF SOCIOLOGY): - ESRD on dialysis as of August [...] Renvela. Assessment & Plan (09/15/2020 11:00 AM ASSOCIATE PROFESSOR OF SOCIOLOGY): - Related to increased needs, chronic illness/injury and wounds - Nutrition consulted - Consistent carb diet. Will allow double portions of meat. - Supplements ordered Foot ulcer due to secondary DM 09/13/2020 Assessment & Plan (09/21/2020 8:32 AM ASSOCIATE PROFESSOR OF SOCIOLOGY): Right foot wounds appeared about 1 month [...] Continue aspirin + Plavix daily Atherosclerosis of lumbee artery of right lower extremity 09/06/2020 Overview (09/06/2020): Added automatically from request for surgery [id number] Peripheral arterial disease ([facility]) 09/06/2020 Overview (09/06/2020): Added automatically from request for surgery [id number] Assessment & Plan (03/06/2023 4:14 PM CDT): Continue medical management with statin. 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 Presents now [...] 06/23/2020 Assessment & Plan (09/05/2021 12:26 PM ASSOCIATE PROFESSOR OF SOCIOLOGY): Continue working with PT/OT. Follow up outpatient for prosthetic. Assessment & Plan (08/15/2021 1:43 PM ASSOCIATE PROFESSOR OF SOCIOLOGY): Continue PT/OT Continue outpatient follow up for prosthetic on 08/21/21 (2pm), 08/28/21 (11am), and 09/06/21 (11am). Assessment & Plan (08/08/2021 12:35 PM ASSOCIATE PROFESSOR OF SOCIOLOGY): Seen outpatient for prosthetic yesterday and has follow up again 08/21/21 (2pm), 08/28/21 (11am), and 09/06/21 (11am) Assessment & Plan (08/07/2021 10:29 AM ASSOCIATE PROFESSOR OF SOCIOLOGY): Denies phanthom limb pain. Pain controlled cyclobenzaprine, Acetaminophen, and Gabapentin. Assessment & Plan (08/01/2021 11:53 AM ASSOCIATE PROFESSOR OF SOCIOLOGY): Continue Aspirin and Gabapentin. Pain well controlled. 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 Assessment & Plan (06/29/2021 1:45 PM CDT): Patient measured for below-knee furniture mover is yesterday and will follow-up for fitting (paperhanger apprentice). Incision well-healed. Continue PT/OT. Continue gabapentin and acetaminophen. Assessment & Plan (06/19/2021 1:55 PM CDT): Patient had follow-up with vascular surgeon. Sutures removed and patient recommended for residual limb furniture mover. Pain well controlled. Continue PT/OT Assessment & Plan (06/08/2021 3:02 PM CDT): Patient unable to tolerate oxycodone due to increased confusion. Discussed with MD and will discontinue oxycodone and changed to Langhorne to help with postoperative pain. Assessment & [...] and OT Bed will be available at 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 - Will need rehab after this admission as has no family available to help him - PT and OT - SW aware and referrals sent Assessment & Plan (06/27/2020 1:25 PM CDT): -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 - Will need rehab after this admission [...] bicarb supplement for acidosis - strict I&Os, BOGDAN mccann - monitor BMP Assessment & Plan [...] 05/19/2020 Assessment & Plan (07/14/2021 1:52 PM ASSOCIATE PROFESSOR OF SOCIOLOGY): Continue Lasix 40 mg daily Assessment & Plan (09/15/2020 10:36 AM ASSOCIATE PROFESSOR OF SOCIOLOGY): - Echo from 05/2020 LVEF 34% otherwise [...] degree HB on tele w/ very prolonged GA interval and resting bradycardia to mid 50-60s [...] degree HB on tele w/ very prolonged GA interval and resting bradycardia to mid 50-60s [...] degree HB on tele w/ very prolonged GA interval and resting bradycardia to mid 50s, [...] degree HB on tele w/ very prolonged GA interval and resting bradycardia to mid 50s, [...] degree HB on tele w/ very prolonged GA interval, consider restarting - on Entresto 49-51 [...] degree HB on tele w/ very prolonged GA interval, consider restarting - on Entresto 49-51 [...] degree HB on tele w/ very prolonged GA interval. Restart if able. - on Entresto [...] degree HB on tele w/ very prolonged GA interval. Restart if able. - on Entresto [...] Plan (05/19/2020 9:20 AM CDT): - BNP [id number] - Restart home carvedilol - Diuresis 2017 [...] (05/18/2020): Added automatically from request for surgery [id number] Assessment & Plan (06/01/2020 10:34 AM CDT): [...] (05/19/2020): Added automatically from request for surgery [id number] Assessment & Plan (02/28/2023 9:46 AM CDT): [...] eye. Assessment & Plan (09/22/2019 3:29 PM ASSOCIATE PROFESSOR OF SOCIOLOGY): New cataract evaluation today Mature cataract OS [...] on admission with NSR with severely prolonged GA - as noted above, resuming low dose coreg - telemetry Assessment & Plan (06/29/2020 9:55 AM CDT): History of post-op AF - Not on AC on admission, ECG on admission with NSR with severely prolonged GA - as noted above, resuming low dose coreg - telemetry Assessment & Plan (06/28/2020 10:30 AM CDT): History of post-op AF - Not on AC on admission, ECG on admission with NSR with severely prolonged GA - Holding coreg for now while on dobutamine - telemetry Assessment & Plan (06/27/2020 1:26 PM CDT): History of post-op AF - Not on AC on admission, ECG on admission with NSR with severely prolonged GA - Holding coreg for now while on dobutamine - telemetry Assessment & Plan (06/26/2020 12:02 PM CDT): History of post-op AF - Not on AC on admission, ECG on admission with NSR with severely prolonged GA - Holding coreg for now while on dobutamine - telemetry Assessment & Plan (06/25/2020 2:28 PM CDT): History of post-op AF - Not on AC on admission, ECG on admission with NSR with severely prolonged GA - Holding coreg for now while on dobutamine - telemetry Assessment & Plan (06/24/2020 3:35 PM CDT): History of post-op AF - Not on AC on admission, ECG on admission with NSR with severely prolonged GA - Holding coreg for now while on dobutamine - telemetry Assessment & Plan (06/23/2020 9:22 AM CDT): History of post-op AF - Not on AC on admission, ECG on admission with NSR with severely prolonged GA - Holding coreg for now while on dobutamine - telemetry Assessment & Plan (06/22/2020 12:01 PM CDT): History of post-op AF - Not on AC on admission, ECG on admission with NSR with severely prolonged GA - Holding coreg for now while on dobutamine - telemetry Assessment & Plan (06/21/2020 10:44 AM CDT): History of post-op AF - Not on AC on admission, ECG on admission with NSR with severely prolonged GA - Holding coreg for now while on dobutamine - telemetry Assessment & Plan (06/20/2020 11:49 AM CDT): History of post-op AF - Not on AC on admission, ECG on admission with NSR with severely prolonged GA - Holding coreg for now while on [...] on cefepime 2g IV post HD T, , SAT - Continue on daptomycin 8mg/kg post [...] - Pt remains under wound care at [facility]. - Discussed with patient the rational for treatment, culture results, risk of recurrent infection, signs/symptoms of recurrent infection, and to contact ID clinic with any questions or concerns. Assessment & Plan (06/30/2020 10:47 AM CDT): S/p L BKA - Continue daily wound care - PT/OT eval and treat Patient will be going to [facility] tomorrow. 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 Consider GLP-1 agonist [...] - s/p CABG [address] Sae WALKER-LAD, sequential SVG PDA and rPLV, left-radial to LCx - Continue home asa, statin, metoprolol, plavix Assessment & Plan (11/18/2020 2:44 PM CDT): - s/p CABG [address] Sae WALKER-LAD, sequential SVG PDA and rPLV, left-radial to LCx - Continue home asa, statin, metoprolol, plavix Assessment & Plan (09/14/2020 11:01 AM ASSOCIATE PROFESSOR OF SOCIOLOGY): - s/p CABG [address] Sae WALKER-LAD, sequential SVG PDA [...] Isordil Assessment & Plan (09/17/2020 6:52 AM ASSOCIATE PROFESSOR OF SOCIOLOGY): - VS Q4 hrs - Continue home Lasix, hydralazine, metoprolol, Isordil Assessment & Plan (06/28/2020 10:41 AM CDT): - Elevated blood pressure - continue hydralazine 100 mg tid, isosorbide 40 mg tid - Coreg held with recent DOUGH MACHINE OPERATOR, likely resume low dose tomorrow Assessment & Plan (06/27/2020 1:27 PM CDT): - Elevated blood pressure - continue hydralazine 100 mg tid, isosorbide 40 mg tid - Coreg held with recent DOUGH MACHINE OPERATOR, likely resume tomorrow Assessment & Plan (06/26/2020 12:05 PM CDT): -Elevated blood pressure - continue hydralazine 100 mg tid, isosorbide 40 mg tid -Coreg held while on DOUGH MACHINE OPERATOR Assessment & Plan (06/25/2020 2:31 PM CDT): -Elevated blood pressure - continue hydralazine 100 mg tid, isosorbide 40 mg tid -Coreg held while on DOUGH MACHINE OPERATOR Assessment & Plan (06/24/2020 3:58 PM CDT): -Elevated blood pressure - continue hydralazine 100 mg tid, isosorbide 40 mg tid -Coreg held while on DOUGH MACHINE OPERATOR Assessment & Plan (06/23/2020 10:00 AM CDT): Elevated blood pressure - continue hydralazine 100 mg tid, isosorbide 40 mg tid Off carvedilol while being on dobutamine Continue to monitor Assessment & Plan (05/31/2020 11:11 AM CDT): On home carvedilol, held due to 1st degree HB with prolonged GA interval, borderline HR (56-60) - Start amlodipine 5mg Assessment & Plan (05/30/2020 1:28 PM CDT): On home carvedilol, held due to 1st degree HB with prolonged GA interval, borderline HR (56-60) - Start amlodipine 5mg Assessment & Plan (05/29/2020 10:58 AM CDT): On home carvedilol, held due to 1st degree HB with prolonged GA interval, borderline HR (56-60) - Start amlodipine 5mg Assessment & Plan (05/26/2020 12:36 PM CDT): On home carvedilol, held due to 1st degree HB with prolonged GA interval, borderline HR (56-60) - Start amlodipine 5mg Assessment & Plan (04/09/2018 2:22 PM CDT): Blood pressure within target Resolved Problems Problem Noted Date Diagnosed Date Resolved Date Diabetic ulcer of right fifth toe 11/14/2020 12/01/2020 Overview (11/17/2020): Added automatically from request for surgery [id number] Foot ulcer 11/14/2020 12/01/2020 Overview (11/22/2020): Added automatically from request for surgery [id number] Ulcer of right foot with bon e involvement without evidence of necrosis 11/14/2020 12/01/2020 Overview (11/22/2020): Added automatically from request for surgery [id number] Wound of left leg 11/14/2020 12/01/2020 Overview (11/25/2020): Added automatically from request for surgery [id number] Immunizations Immunization Administration Dates Next Due Influenza, Quadrivalent, Spl it, Preservative Free, Intramuscular 07/01/2020 Influenza, Unspecified 06/16/2017,06/02/2017 Surgical History Surgery Date Site/Laterality Comments GA AMPUTATION TOE INTERPHALANGEAL JOINT 09/02/2011 - 09/01/2012 [...] Type 2 diabetes mellitus wit hout complications (HCC) Insulin dependent type 2 olga lidia betes mellitus - (Added by TW Conv) Type 2 diabetes mellitus wit h hyperglycemia (HCC) Type 2 diabetes mellitus wit h hyperglycemia - (Added by TW Conv) Cataract Sleep apnea CAD (coronary artery disease) Gangrene (HCC) Apical mural thrombus CKD (chronic kidney disease) Heart failure (HCC) History of atrial fibrillation Ulcer of right foot with bon e involvement without evidence of necrosis (HCC) 11/14/2020 Added automatically from [employer] uest for surgery [id number] Foot ulcer (HCC) 11/14/2020 Added automatic ally from request for surgery [id number] Diabetic ulcer of right fift h toe (HCC) 11/14/2020 Added automatically from [employer] uest for surgery [id number] Hypertension Hyperlipidemia Peripheral vascular disease Atrial fibrillation (HCC) GERD (gastroesophageal reflux disease) Depression Hemodialysis patient on Tuesdays , , and Saturdays. Family History Medical History [...] Smoking Tobacco: Former Cigarettes 0.5 42 1 8 - 2019 Smokeless Tobacco: Never Comments:on and [...] week 03/12/2023 How often do you attend [facility] or yazdanism services? Never 03/12/2023 Do you belong to any clubs o r organizations such as protestant groups, unions, fraternal or athletic groups, or [...] place to sleep or slept in a nursing home (including now)? No 03/12/2023 Personal Safety Answer Date Recorded Have you ever been in or are you currently in a harmful physical or emotional relationship or is someone making you feel afraid or unsafe? Denies 04/16/2023 Sex and Gender Information Value Date Recorded Sex Assigned at Not on file Legal Sex Male 4:17 AM ASSOCIATE PROFESSOR OF SOCIOLOGY Gender Identity Not on file Sexual Orientation [...] Pneumococcal vaccine <65 (2 of 2 - PPSV23) 09/27/2020 08/02/2020 Hemoglobin A1C 08/17/2023 02/15/2023, 01/31, 05/16/2021, Additional history exists Lipid Panel 02/16/2024 [...] Completed 04/16/2023 Medical Devices Implanted Type Area Chore Tender Device Identifier Shelf Expiration Date Model / Serial / Lot [employer] [id number] - [id number] - [id number] Implanted:Qty: 1 on 02/24/2020 by Jeremias May MD at [facility] Lens Left: Eye [employer] 09/01/2022 [id number] / [id number] / [employer] [id number] Zilver Ptx 7mm 40mm 125cm Drug Elute Otw Delivery System - [id number] - [id number] Implanted:Qty: 1 on 09/16/2020 by Frandy Colunga MD at [facility] Stent Right: Femoral [employer] 12/02/2021 [id number] / [id number] / [id number] Elance [id number] Vascade 6/7fr Bioabsorbable Vascular System Compression Collagen - [id number] Implanted:Qty: 1 on 11/24/2020 by Eliseo Akins MD at [facility] [employer] 08/04/2022 [id number] / [id number] Procedures Procedure Name Priority Date/Time Associated Diagnosis Comments EGFR Routine 04/30/2023 3:09 AM CDT HEMOGLOBIN A1C STAT 02/15/2023 5:16 AM CDT LIPID PANEL STAT 02/15/2023 5:16 AM CDT COLONOSCOPY 11/03/2021 12:44 PM ASSOCIATE PROFESSOR OF SOCIOLOGY HEPATITIS C ANTIBODY Routine 09/20/2020 8:35 PM ASSOCIATE PROFESSOR OF SOCIOLOGY from Last 3 Months or Most Recently [...] MD LAB BLOOD ORDERABLES Final Result [facility] [address] [facility] Department [place] [address] * Hemoglobin A1c (02/15/2023 5:16 AM CDT) Hgb A1C 5.5 4.0 - 5.6 % [facility] Estimated Average Glucose 111 mg/dL [facility] Comment: The ADA recommends reporting an estimated [...] MD LAB BLOOD ORDERABLES Final Result [facility] [place] [address] * (ABNORMAL) Lipid panel (02/15/2023 5:16 AM [...] on 2018. Triglycerides 81 <=149 mg/dL [facility] Comment: Interpretive Data Ages [...] on 2018. HDL 26(L) >=40 mg/dL [facility] Comment: Interpretive Data Ages [...] on 2018. LDL, calculated 33 <=129 mg/dL [facility] Comment: Interpretive Data Ages < or [...] revised on 2018. Non-HDL Cholesterol 49 mg/dL [facility] Comment: Interpretive Data Ages [...] last revised on 2018. Chol/HDL ratio 3 [facility] Blood 02/15/2023 5:16 AM CDT 02/15/2023 5:57 AM CDT us Marcella Arias MD LAB BLOOD ORDERABLES Final Result [facility] [place] [address] * COLONOSCOPY (11/03/2021 12:44 PM ASSOCIATE PROFESSOR OF SOCIOLOGY) Anatomical Region Laterality Modality Other Narrative Procedure Note Brayden Lerma MD - 11/03/2021 12:44 PM CST [facility] Patient Name: Kobi Salter Procedure Date: 11/03/2021 12:44 PM Date of : 1965 Admit Type: Outpatient Age: 56 Gender: Male Note Status: Finalized Attending MD: Brayden Lerma M.D. Procedure Date: 11/03/2021 Procedure: Colonoscopy Indications: Chronic diarrhea Patient Profile: This is a 56 year old male. Diarrhea. Providers: Brayden Lerma M.D., Teresa Ross CRNA (Anesthesia Staff), Gini Izquierdo, NOEMI, Jose A Vuong,Glost Kiln Operator Referring MD: Jewels Lamas M.D. Medicines: Monitored [...] bowel preparation was evaluated using the BBPS ([place] Bowel Preparation Scale)with scores of: Right Colon [...] * Hepatitis C antibody (09/20/2020 8:35 PM ASSOCIATE PROFESSOR OF SOCIOLOGY) Hep C Ab Nonreactive Nonreactive [facility] Comment:Antibodies to HCV no t detected. Does NOT exclude the possibility of recent exposure to HCV. Blood specimen (specimen) 09/20/2020 8:35 PM ASSOCIATE PROFESSOR OF SOCIOLOGY 09/20/2020 10:17 PM ASSOCIATE PROFESSOR OF SOCIOLOGY Jasson Teague LINE O SCRIBE OPERATOR LAB MICROBIOLOGY - GENE RAL ORDERABLES Final Result [facility] [place] [address] from Last 3 Months or Most Recently Relevant to Health Maintenance Additional Health Concerns Infection Onset Date Last Indicated MDR gram neg/ESBL 04/16/2023 04/16/2023 C. difficile 04/26/2023 04/26/[address] [place] [address] [place] [address] [facility] MEDICARE IDPA [facility] [place] [address] Advance Directives For more information, please contact: [phone] Documents on File Type Date Recorded Patient Specialty Manufacturing Supervisor Expl anation ADVANCE DIRECTIVE 09/25/2020 7:52 AM POWER OF DIRECTOR OF MARKETING [employer] ADS-MEDICAL * Full Code (Latest Code Status on [...] 11:56 AM 05/31/2021 12:12 AM Care Teams Provider Relations Specialist Relationship Specialty Start Date End Date No, Physician PCP - General 02/14/23 Frandy Colunga MD Surgeon Vascular Surgery 02/28/21 Alcon Quintanilla DPM Surgeon Podiatry 02/28/21 Theodore Solis MD [address] [place] [address] Consulting Physician Internal Medicine 03/16/23 Raul Lynn IV, MD [address] [place] [id number] Consulting Physician General Surgery 04/30/23
--- OUTSIDE RECORDS SUMMARY | 2024-12-22 05:23 | XMS_ITS | Referral Summary ---
Author Organization [facility] [address] [place] [address] Care Team Providers Care Paralegal Legal Secretary Name Role Phone Frandy Colunga MD Unavailable [phone] Alcon QuintanillaM Unavailable No, Physician Primary Care Provider [phone] Theodore Solis MD Unavailable Leah MARINO MD, Quinn [place] Unavailable [phone] Allergies Active Allergy Reactions Criticality Noted Date [...] no signs of displacement. Discussed extensively with memory care program director and therapy. We will proceed with [...] GI. I reminded patient has sister and memory care program director at this appointment at [facility] at 1:[address] Bradley. [...] presented with mental status changes from the skilled nursing and found to have acute cholecystitis. Likely acute metabolic encephalopathy. Treat underlying cause. Mental status is improving. Closed left subtrochanteric femur fracture, sequ chrsitiana 02/28/2023 Assessment & Plan (04/09/2023 7:04 PM CDT): Ortho fu pending, aquilino phan Assessment & Plan (04/03/2023 5:26 PM CDT): Nonoperative management was recommended at [facility] earlier this summer. We will arrange outpatient follow up with Orthopedics but seems to be asymptomatic on that leg Assessment & Plan (03/26/2023 3:12 PM CDT): As per HPI, pain seems somewhat better controlled on current regimen. Recent x- rays did not show any new fractures. I reminded memory care program director the patient appears to still need appointment made with Orthopedics at [facility]. Phone #[phone] Assessment & Plan (03/18/2023 4:48 PM CDT): [...] as pain control with oxycodone. Discussed with memory care program director about getting follow up with Orthopedics [...] status seems to be slowly improving. Reminded memory care program director that patient has on April 23 appointment with Neurosurgery at [facility] at 1:30 p.m. along with the [...] to be clinically improving neurologically. Discussed with memory care program director about getting neurosurgery follow up in [...] 08/08/2021 Assessment & Plan (10/27/2021 3:09 PM THREADER): EGD/Colonoscopy scheduled for 11/03/21 Hold aspirin 10/29/21 Assessment & Plan (08/15/2021 1:41 PM THREADER): Patient was referred for colonoscopy and has appointment with GI. Abdominal pain has resolved. Assessment & Plan (08/08/2021 12:33 PM THREADER): Last colonoscopy 2012 (Unavailable). Recurrent rectal pain and diarrhea. No hemorrhoids. Check CBC. Encounter for surgical after care following surgery of circulatory system 06/16/2021 Chronic diarrhea 06/06/2021 Assessment & Plan (10/03/2021 9:10 AM THREADER): Pt was given Lomotil due to diarrhea and now c/o constipation. Resume questran and loperamide when constipation resolved. Assessment & Plan (07/28/2021 12:53 PM THREADER): Pt was given Lomotil due to diarrhea and now c/o constipation. Resume questran and loperamide when constipation resolved. Assessment & Plan (07/18/2021 1:25 PM THREADER): Continue cholestyramine and loperamide. Assessment & Plan [...] therapy Assessment & Plan (10/03/2021 9:09 AM THREADER): Patient's pain is controlled with Concordia Patient needs AKA wound functional level for prosthesis for transfer and ambulation on level surfaces at a fixed candence Assessment & Plan (06/14/2021 2:19 PM CDT): Percocet change to Concordia as patient could not tolerate Assessment & Plan (05/31/2021 1:38 PM CDT): Continue PT/OT. Recurrent major depressive disorder, in remissio n 05/31/2021 Assessment & Plan (03/18/2023 4:46 PM CDT): Cont remeron, stable but fluctuates due to recent hosp stay and illnesses Assessment & Plan (07/28/2021 12:53 PM THREADER): Continue Remeron and Zoloft. Assessment & Plan [...] tomorrow. Assessment & Plan (10/03/2021 9:11 AM THREADER): Continue Tradjenta and Glargine. Blood sugars have been stable between 70 and 150 Assessment & Plan (09/05/2021 12:27 PM THREADER): Continue Tradjenta and Glargine. Check A1c every 90 days. Assessment & Plan (08/01/2021 11:57 AM THREADER): Blood glucose 110 - 138 Continue Glargine and Tradjenta Assessment & Plan (07/18/2021 1:24 PM THREADER): Continue Tradjenta and glargine insulin. Assessment & Plan (06/29/2021 1:46 PM CDT): Stable on Tradjenta and glargine insulin. Assessment & Plan (06/06/2021 2:02 PM CDT): Continue Tradjenta and glargine Assessment & Plan (05/31/2021 1:46 PM CDT): Continue glargine and Tradjenta. Hypophosphatemia 05/30/2021 Assessment & Plan (05/30/2021 10:08 AM CDT): - Held sevelamer for low phosphorous level. - Given IV phos per renal 05/29 assisted (current) use of antibiotics Assessment & Plan [...] ich Assessment & Plan (10/03/2021 9:09 AM THREADER): Not on anticoagulation. Continue Metoprolol, Aspirin. Assessment & Plan (08/01/2021 11:54 AM THREADER): Not on anticoagulation. Continue Metoprolol, Aspirin. 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 Assessment & Plan (10/27/2021 3:10 PM THREADER): Continue hemodialysis weekly. Assessment & Plan (08/07/2021 10:27 AM THREADER): Currently on Sevelamer and Ferrous sulfate. Hemodialysis three days weekly. Assessment & Plan (07/14/2021 1:51 PM THREADER): Continue Sevelamer and Ferrous sulfate. Assessment & [...] schedule Assessment & Plan (09/21/2020 8:33 AM THREADER): - ESRD on dialysis as of August [...] Renvela. Assessment & Plan (09/15/2020 11:00 AM THREADER): - Related to increased needs, chronic illness/injury and wounds - Nutrition consulted - Consistent carb diet. Will allow double portions of meat. - Supplements ordered Foot ulcer due to secondary DM 09/13/2020 Assessment & Plan (09/21/2020 8:32 AM THREADER): Right foot wounds appeared about 1 month [...] Continue aspirin + Plavix daily Atherosclerosis of [place] artery of right lower extremity 09/06/2020 Overview (09/06/2020): Added automatically from request for surgery [id number] Peripheral arterial disease ([facility]) 09/06/2020 Overview (09/06/2020): Added automatically from request for surgery [id number] Assessment & Plan (03/06/2023 4:14 PM CDT): Continue medical management with statin. 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 Presents now [...] 06/23/2020 Assessment & Plan (09/05/2021 12:26 PM THREADER): Continue working with PT/OT. Follow up outpatient for prosthetic. Assessment & Plan (08/15/2021 1:43 PM THREADER): Continue PT/OT Continue outpatient follow up for prosthetic on 08/21/21 (2pm), 08/28/21 (11am), and 09/06/21 (11am). Assessment & Plan (08/08/2021 12:35 PM THREADER): Seen outpatient for prosthetic yesterday and has follow up again 08/21/21 (2pm), 08/28/21 (11am), and 09/06/21 (11am) Assessment & Plan (08/07/2021 10:29 AM THREADER): Denies phanthom limb pain. Pain controlled cyclobenzaprine, Acetaminophen, and Gabapentin. Assessment & Plan (08/01/2021 11:53 AM THREADER): Continue Aspirin and Gabapentin. Pain well controlled. 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 Incision well-healed. Continue PT/OT. Continue gabapentin and acetaminophen. Assessment & Plan (06/19/2021 1:55 PM CDT): Patient had follow-up with vascular surgeon. Sutures removed and patient recommended for residual limb blanking press operator. Pain well controlled. Continue PT/OT Assessment & Plan (06/08/2021 3:02 PM CDT): Patient unable to tolerate oxycodone due to increased confusion. Discussed with MD and will discontinue oxycodone and changed to Concordia to help with postoperative pain. Assessment & [...] and OT Bed will be available at [facility] tomorrow Patient was not accepted at [facility] rehab per executive secretary social welfare Assessment & Plan (06/29/2020 9:55 AM CDT): [...] bicarb supplement for acidosis - strict I&Os, Mccnan in place - monitor BMP Assessment & [...] 05/19/2020 Assessment & Plan (07/14/2021 1:52 PM THREADER): Continue Lasix 40 mg daily Assessment & Plan (09/15/2020 10:36 AM THREADER): - Echo from 05/2020 LVEF 34% otherwise [...] degree HB on tele w/ very prolonged MO interval and resting bradycardia to mid 50-60s [...] degree HB on tele w/ very prolonged MO interval and resting bradycardia to mid 50-60s [...] degree HB on tele w/ very prolonged MO interval and resting bradycardia to mid 50s, [...] degree HB on tele w/ very prolonged MO interval and resting bradycardia to mid 50s, [...] degree HB on tele w/ very prolonged MO interval, consider restarting - on Entresto 49-51 [...] degree HB on tele w/ very prolonged MO interval, consider restarting - on Entresto 49-51 [...] degree HB on tele w/ very prolonged MO interval. Restart if able. - on Entresto [...] degree HB on tele w/ very prolonged MO interval. Restart if able. - on Entresto [...] Plan (05/19/2020 9:20 AM CDT): - BNP 17286 - Restart home carvedilol - Diuresis 2017 [...] (05/18/2020): Added automatically from request for surgery [id number] Assessment & Plan (06/01/2020 10:34 AM CDT): [...] (05/19/2020): Added automatically from request for surgery [id number] Assessment & Plan (02/28/2023 9:46 AM CDT): [...] eye. Assessment & Plan (09/22/2019 3:29 PM THREADER): New cataract evaluation today Mature cataract OS [...] on admission with NSR with severely prolonged MO - as noted above, resuming low dose coreg - telemetry Assessment & Plan (06/29/2020 9:55 AM CDT): History of post-op AF - Not on AC on admission, ECG on admission with NSR with severely prolonged MO - as noted above, resuming low dose coreg - telemetry Assessment & Plan (06/28/2020 10:30 AM CDT): History of post-op AF - Not on AC on admission, ECG on admission with NSR with severely prolonged MO - Holding coreg for now while on dobutamine - telemetry Assessment & Plan (06/27/2020 1:26 PM CDT): History of post-op AF - Not on AC on admission, ECG on admission with NSR with severely prolonged MO - Holding coreg for now while on dobutamine - telemetry Assessment & Plan (06/26/2020 12:02 PM CDT): History of post-op AF - Not on AC on admission, ECG on admission with NSR with severely prolonged MO - Holding coreg for now while on dobutamine - telemetry Assessment & Plan (06/25/2020 2:28 PM CDT): History of post-op AF - Not on AC on admission, ECG on admission with NSR with severely prolonged MO - Holding coreg for now while on dobutamine - telemetry Assessment & Plan (06/24/2020 3:35 PM CDT): History of post-op AF - Not on AC on admission, ECG on admission with NSR with severely prolonged MO - Holding coreg for now while on dobutamine - telemetry Assessment & Plan (06/23/2020 9:22 AM CDT): History of post-op AF - Not on AC on admission, ECG on admission with NSR with severely prolonged MO - Holding coreg for now while on dobutamine - telemetry Assessment & Plan (06/22/2020 12:01 PM CDT): History of post-op AF - Not on AC on admission, ECG on admission with NSR with severely prolonged MO - Holding coreg for now while on dobutamine - telemetry Assessment & Plan (06/21/2020 10:44 AM CDT): History of post-op AF - Not on AC on admission, ECG on admission with NSR with severely prolonged MO - Holding coreg for now while on dobutamine - telemetry Assessment & Plan (06/20/2020 11:49 AM CDT): History of post-op AF - Not on AC on admission, ECG on admission with NSR with severely prolonged MO - Holding coreg for now while on [...] - Pt remains under wound care at [facility]. - Discussed with patient the rational for treatment, culture results, risk of recurrent infection, signs/symptoms of recurrent infection, and to contact ID clinic with any questions or concerns. Assessment & Plan (06/30/2020 10:47 AM CDT): S/p L BKA - Continue daily wound care - PT/OT eval and treat Patient will be going to [facility] tomorrow. 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 Consider GLP-1 agonist [...] plavix Assessment & Plan (09/14/2020 11:01 AM THREADER): - s/p CABG [address] Sae [...] Isordil Assessment & Plan (09/17/2020 6:52 AM THREADER): - VS Q4 hrs - Continue home Lasix, hydralazine, metoprolol, Isordil Assessment & Plan (06/28/2020 10:41 AM CDT): - Elevated blood pressure - continue hydralazine 100 mg tid, isosorbide 40 mg tid - Coreg held with recent LEAD MAINTENANCE TECHNICIAN, likely resume low dose tomorrow Assessment & Plan (06/27/2020 1:27 PM CDT): - Elevated blood pressure - continue hydralazine 100 mg tid, isosorbide 40 mg tid - Coreg held with recent LEAD MAINTENANCE TECHNICIAN, likely resume tomorrow Assessment & Plan (06/26/2020 12:05 PM CDT): -Elevated blood pressure - continue hydralazine 100 mg tid, isosorbide 40 mg tid -Coreg held while on LEAD MAINTENANCE TECHNICIAN Assessment & Plan (06/25/2020 2:31 PM CDT): -Elevated blood pressure - continue hydralazine 100 mg tid, isosorbide 40 mg tid -Coreg held while on LEAD MAINTENANCE TECHNICIAN Assessment & Plan (06/24/2020 3:58 PM CDT): -Elevated blood pressure - continue hydralazine 100 mg tid, isosorbide 40 mg tid -Coreg held while on LEAD MAINTENANCE TECHNICIAN Assessment & Plan (06/23/2020 10:00 AM CDT): Elevated blood pressure - continue hydralazine 100 mg tid, isosorbide 40 mg tid Off carvedilol while being on dobutamine Continue to monitor Assessment & Plan (05/31/2020 11:11 AM CDT): On home carvedilol, held due to 1st degree HB with prolonged MO interval, borderline HR (56-60) - Start amlodipine 5mg Assessment & Plan (05/30/2020 1:28 PM CDT): On home carvedilol, held due to 1st degree HB with prolonged MO interval, borderline HR (56-60) - Start amlodipine 5mg Assessment & Plan (05/29/2020 10:58 AM CDT): On home carvedilol, held due to 1st degree HB with prolonged MO interval, borderline HR (56-60) - Start amlodipine 5mg Assessment & Plan (05/26/2020 12:36 PM CDT): On home carvedilol, held due to 1st degree HB with prolonged MO interval, borderline HR (56-60) - Start amlodipine 5mg Assessment & Plan (04/09/2018 2:22 PM CDT): Blood pressure within target Resolved Problems Problem Noted Date Diagnosed Date Resolved Date Diabetic ulcer of right fifth toe 11/14/2020 12/01/2020 Overview (11/17/2020): Added automatically from request for surgery [id number] Foot ulcer 11/14/2020 12/01/2020 Overview (11/22/2020): Added automatically from request for surgery [id number] Ulcer of right foot with bon e involvement without evidence of necrosis 11/14/2020 12/01/2020 Overview (11/22/2020): Added automatically from request for surgery [id number] Wound of left leg 11/14/2020 12/01/2020 Overview (11/25/2020): Added automatically from request for surgery [id number] Immunizations Immunization Administration Dates Next Due Influenza, [...] often do you attend chur ch or jew services? Never 03/12/2023 Do you belong to any clubs o r organizations such as gnosticism groups, unions, fraternal or athletic groups, or [...] place to sleep or slept in a correction (including now)? No 03/12/2023 Personal Safety Answer Date Recorded Have you ever been in or are you currently in a harmful physical or emotional relationship or is someone making you feel afraid or unsafe? Denies 04/16/2023 Sex and Gender Information Value Date Recorded Sex Assigned at Not on file Legal Sex Male 4:17 AM THREADER Gender Identity Not on file Sexual Orientation [...] on file Medical Devices Implanted Type Area Toy Assembler Device Identifier Shelf Expiration Date Model / Serial / Lot [employer] [id number] - [id number] - [id number] Implanted:Qty: 1 on 02/24/2020 by Jeremias May MD at [facility] Lens Left: Eye [employer] 09/01/2022 [id number] / [id number] / [employer] [id number] Zilver Ptx 7mm 40mm 125cm Drug Elute Otw Delivery System - [id number] - [id number] Implanted:Qty: 1 on 09/16/2020 by Frandy Colunga MD at [facility] Stent Right: Femoral Cloud Takeoff 12/02/2021 [id number] / [id number] / [id number] Grow Mobile [id number] Vascade 6/7fr Bioabsorbable Vascular System Compression Collagen - [id number] Implanted:Qty: 1 on 11/24/2020 by Eliseo Akins MD at [facility] [employer] 08/04/2022 [id number] / / [id number] Procedures Procedure Name Priority Date/Time Associated Diagnosis Comments EGFR Routine 04/30/2023 3:09 AM CDT HEMOGLOBIN A1C STAT 02/15/2023 5:16 AM CDT LIPID PANEL STAT 02/15/2023 5:16 AM CDT COLONOSCOPY 11/03/2021 12:44 PM THREADER HEPATITIS C ANTIBODY Routine 09/20/2020 8:35 PM THREADER from Last 3 Months or Most Recently [...] of Race in Diagnosing Kidney Disease, JASN 202). The CKD-EPI equation should not be used for patients with unstable renal function and has not been validated in children and those over 70. Current interpretive data was last reviewed 2021. Blood 04/30/2023 3:09 AM CDT 04/30/2023 4:44 AM CDT Washington Little MD LAB BLOOD ORDERABLES Final Result Performing Organization Address City/[facility]/ZIP Co de Phone Number [address] Department [place] [address] * Hemoglobin A1c (02/15/2023 5:16 AM CDT) [facility] Hgb A1C 5.5 4.0 - 5.6 % [facility] Estimated Average Glucose 111 mg/dL [facility] Comment: The ADA recommends [...] Arias MD LAB BLOOD ORDERABLES Final Result [facility] Department [place] [address] * (ABNORMAL) Lipid panel (02/15/2023 5:16 AM CDT) Cholesterol 75 30 - 199 mg/dL [facility] Comment: Interpretive Data Ages < or [...] on 2018. Triglycerides 81 <=149 mg/dL [facility] Comment: Interpretive Data Ages < or [...] revised on 2018. HDL 26(L) >=40 mg/dL [facility] Comment: Interpretive Data Ages < or [...] 2018. LDL, calculated 33 <=129 mg/dL [facility] Comment: Interpretive Data Ages < or [...] revised on 2018. Non-HDL Cholesterol 49 mg/dL [facility] Comment: Interpretive Data Ages [...] last revised on 2018. Chol/HDL ratio 3 [facility] Blood 02/15/2023 5:16 AM CDT 02/15/2023 5:57 AM CDT us Marcella Arias MD LAB BLOOD ORDERABLES Final Result [facility] [place] [address] * COLONOSCOPY (11/03/2021 12:44 PM THREADER) Anatomical Region Laterality Modality Other Narrative Procedure Note Brayden Lerma MD - 11/03/2021 12:44 PM CST [facility] Patient Name: Kobi Salter Procedure Date: 11/03/2021 12:44 PM Date of : 1965 Admit Type: Outpatient Age: 56 Gender: Male Note Status: Finalized Attending MD: Brayden Lerma M.D. Procedure Date: 11/03/2021 Procedure: Colonoscopy Indications: Chronic diarrhea Patient Profile: This is a 56 year old male. Diarrhea. Providers: Brayden Lerma M.D., Teresa Ross, TANYA (Anesthesia Staff), Gini Izquierdo RN, Jose A Vuong,Manager Hair Referring MD: Jewels Lamas M.D. Medicines: Monitored [...] bowel preparation was evaluated using the BBPS ([place] Bowel Preparation Scale)with scores of: Right Colon [...] 0 Note Initiated On: 11/03/2021 12:44 PM Brayden Lerma MD ENDOSCOPY PROCEDURES Final Re sult * Hepatitis C antibody (09/20/2020 8:35 PM THREADER) Hep C Ab Nonreactive Nonreactive [facility] Comment:Antibodies to HCV no t detected. Does NOT exclude the possibility of recent exposure to HCV. Blood specimen (specimen) 09/20/2020 8:35 PM THREADER 09/20/2020 10:17 PM THREADER Jasson Teague NP LAB MICROBIOLOGY - GENE RAL ORDERABLES Final Result [facility] [place] [address] from Last 3 Months or Most Recently Relevant to Health Maintenance Additional Health Concerns Infection Onset Date Last Indicated MDR gram neg/ESBL 04/16/2023 04/16/2023 C. difficile 04/26/2023 04/26/2023 Insurance [facility] MEDICARE IDPA [facility] Advance Directives For more information, please contact: [phone] Documents on File Type Date Recorded Patient Building Certifier Expl anation ADVANCE DIRECTIVE 09/25/2020 7:52 AM POWER OF JV BASEBALL COACH-MEDICAL * Full Code (Latest Code Status on [...] 11:56 AM 05/31/2021 12:12 AM Care Teams Paralegal Legal Secretary Relationship Specialty Start Date End Date No, Physician PCP - General 02/14/23 Frandy Colunga MD Surgeon Vascular Surgery 02/28/21 Alcon Quintanilla DPM Surgeon Podiatry 02/28/21 Theodore Solis MD [address] [place] [address] Consulting Physician Internal Medicine 03/16/23 Raul Lynn IV, MD [address] [place] [id number] Consulting Physician General Surgery 04/30/23
--- OUTSIDE RECORDS SUMMARY | 2024-12-22 05:23 | XMS_ITS ---
Author Organization [facility] shanon Care Team Providers Care Junior Data Analyst Name Role Phone Guerita Paulino Unavailable Unavailable Becka Tucker Unavailable Unavailable Barron, Pau Unavailable Unavailable Elayyan, Carson Unavailable Unavailable Mayte Barrett Unavailable Unavailable Teresa Story) Mansi Unavailable Unavailable Kathya Tariq Unavailable Unavailab Patrice Sanches Unavailable Unavailable Allergies and adverse reactions Code CodeSystem Substance Reaction Severity StartDate Concern Status 350851507 SNOMED CT Penicillins Unknown 07/25/2020 activ e Bees Unknown 07/25/2020 active Care Team Name Role Address Phone Organization Dates Guerita Paulino PCP [address] [place], [place], [facility], [place] (Office): : : [facility] [place] 08/16/2020 - 09/14/2020 Becka Tucker Attending Physician [address] [place], [place], [facility], [facility] (Office): : [facility] [place] 08/16/2020 - 09/14/2020 Pau Mart Attending Physician [address] [place], [address], [place] (Office): : : [facility] [place] 08/16/2020 - 09/14/2020 Yamileth Colón Attending Physician [address] [place], [address], [place] (Office): : : [facility] [place] 08/16/2020 - 09/14/2020 Mayte Barrett Attending Physician [facility] [address], [place], [address], [facility] (Office): [facility] [place] 08/16/2020 - 09/14/2020 Teresa Lynch) Mansi Story Attending Physician [address] [place], [address], [place] (Office): : : [facility] [place] 08/16/2020 - 09/14/2020 Kathya Tariq Attending Physician [address] [place] [address], [address], [place] (Office): [facility] 08/16/2020 - 09/14/2020 Patrice Gao Attending Physician [address] [place], [address], [place] (Office): : : [facility] 08/16/2020 - 09/14/2020 Immunizations Immunization Status Vaccine Details Vaccine Code CodeSystem Date Notes Influenza completed Influenza, split virus, trivalent, injectable, contains preservative 141 CVX created date: 07/26/20 administ ered date: 06/02/20 Resident states he had it at [facility].Calls to [facility] yielded no documentation of influenza vaccine.Reside nt refused the vaccine despite no records TB 2 Step Mantoux Skin Test NotEligible tuberculin skin test; unspecified formulation 98 CVX created date: 10/12/19 consent date: 10/12/19 Resident discharged 09/13/20 TB 2 Step Mantoux Skin Test completed tuberculin skin test; unspecified formulation lotNumber: [id number] expiry: 09/07/2022 Mfg: sanofi Given 0.1 ml Left Forearm intradermally Step 1 of Multi-step with next step required 98 CVX created date: 09/08/19 consent date: 09/08/19 administ ered date: 09/06/19 SARS-COV-2 (COVID-19) NotEligible created date: 10/12/19 21 consent date: 10/12/19 21 Resident discharged 09/13/20 SARS-COV-2 (COVID-19) completed SARS-COV-2 (COVID-19) vaccine, mRNA, spike protein, LNP, preservative free, 30 mcg/0.3mL dose Mfg: Pfizer Given 0.3 ml intramuscularly Step 1 of Multi-step with next step required 208 CVX created date: 09/14/19 consent date: 09/13/19 administ ered date: 09/13/19 Administered by [facility] Mental Status Section Date Assessment Total Score Description 09/13/2020 CAM 0 No delirium ind icated 08/22/2020 BIMS 15 cognitively int act CAM 0 No delirium ind icated PHQ-9 06 mild depression Problems Problem # Description Date of onset Resolved Date Code CodeSystem Concern Status 1 PERSONAL HISTORY OF COVID-19 09/13/[address] active 2 ACUTE CYSTITIS WITHOUT HEMATURIA 08/15/20 20 09/02/[address] completed 3 CARDIOMEGALY 08/15/[address] active 4 COVID-19 08/15/2009/02/[address] completed 5 DEPENDENCE ON RENAL DIALYSIS 08/15/[address] active 6 DIARRHEA, UNSPECIFIED 08/15/[address] active 7 EDEMA, UNSPECIFIED 08/15/[address] active 8 HEART FAILURE, UNSPECIFIED 08/15/[address] active 9 IRON DEFICIENCY ANEMIA, UNSPECIFIED 08/15/[address] active 10 ACUTE KIDNEY FAILURE, UNSPECIFIED 07/28/[address] active 11 ACQUIRED ABSENCE OF LEFT LEG BELOW KNEE 07/25/[address] active 12 ACUTE ON CHRONIC COMBINED SYSTOLIC (CONGESTIVE) AND DIASTOLIC (CONGESTIVE) HEART FAILURE 07/25/[address] active 13 ANEMIA IN CHRONIC KIDNEY DISEASE 07/25/[address] active 14 ATHEROSCLEROTIC HEART DISEASE OF [place] CORONARY ARTERY WITHOUT ANGINA PECTORIS 07/25/[address] active 15 BENIGN INTRACRANIAL HYPERTENSION 07/25/2007/25/[address] completed 16 BENIGN PROSTATIC HYPERPLASIA WITHOUT LOWER URINARY TRACT SYMPTOMS 07/25/[address] active 17 CARDIOMYOPATHY, UNSPECIFIED 07/25/[address] active 18 CHRONIC KIDNEY DISEASE, STAGE 4 (SEVERE) 07/25/[address] active 19 CORNS AND CALLOSITIES 07/25/[address] active 20 DIABETES INSIPIDUS 07/25/2007/25/[address] completed 21 ENCOUNTER FOR ORTHOPEDIC AFTERCARE FOLLOWING SURGICAL AMPUTATION 07/25/[address] active 22 END STAGE RENAL DISEASE 07/25/[address] active 23 ESSENTIAL (PRIMARY) HYPERTENSION 07/25/[address] active 24 HYPERLIPIDEMIA, UNSPECIFIED 07/25/[address] active 25 HYPERTENSIVE CHRONIC KIDNEY DISEASE WITH STAGE 5 CHRONIC KIDNEY DISEASE OR END STAGE RENAL DISEASE 07/25/[address] active 26 INSOMNIA, UNSPECIFIED 07/25/[address] active 27 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 07/25/[address] active 28 MAJOR DEPRESSIVE DISORDER, SINGLE EPISODE, UNSPECIFIED 07/25/[address] active 29 NON-PRESSURE CHRONIC ULCER OF RIGHT HEEL AND MIDFOOT WITH UNSPECIFIED SEVERITY 07/25/[address] active 30 OBESITY, UNSPECIFIED 07/25/[address] active 31 OTHER HEMORRHOIDS 07/25/[address] active 32 OTHER PRIMARY THROMBOPHILIA 07/25/[address] active 33 PERIPHERAL VASCULAR DISEASE, UNSPECIFIED 07/25/[address] active 34 PLEURAL EFFUSION IN OTHER CONDITIONS CLASSIFIED ELSEWHERE 07/25/[address] active 35 PRESENCE OF AUTOMATIC (IMPLANTABLE) CARDIAC DEFIBRILLATOR 07/25/[address] active 36 TYPE 2 DIABETES MELLITUS WITH DIABETIC CHRONIC KIDNEY DISEASE 07/25/[address] active 37 TYPE 2 DIABETES MELLITUS WITH DIABETIC NEPHROPATHY 07/25/[address] active 38 TYPE 2 DIABETES MELLITUS WITH DIABETIC POLYNEUROPATHY 07/25/2007/25/[address] completed 39 TYPE 2 DIABETES MELLITUS WITH FOOT ULCER 07/25/[address] active 40 UNSPECIFIED ATRIAL FLUTTER 07/25/[address] active Reason for Referral No Reasons for Referral Entered Social History Social History Observation Description Start Date End Date Code Code System Current Smoking Status Tobacco smoking consumption unknown 016549119 SNOMED CT Sex Assigned At Male 1965 [address]55-[address] [facility] Vital Signs Code Code System Vitals Name Values and Units Timing Information 9279-[address] [facility] Respiratory Rate Value=20.0 Units=/m in 09/13/2020 8462-[address] [facility] Blood Pressure-Diastolic Value=57 Un its=mmHg 09/13/2020 8480-[address] [facility] Blood Pressure-Systolic Ugmux=866 Un its=mmHg 09/13/2020 8310-[address] [facility] Body Temperature Value=96.9 Units= F 09/13/2020 8867-[address] [facility] Heart rate Value=81.0 Units=/min 08/2021 11121-[address] [facility] O2 % dC Oximetry Value=93.0 Units= % 09/13/2020 84963-4 [facility] Pain Level Value=0.0 09/13/2020 94055-8 [facility] Weight Ckmbh=859.8 Units=Lbs 08/2021 2339-0 LO[facility] Blood Sugar Etzvi=003.0 Units=mg/dL 09/13/2020 8302-2 LO[facility] Height Value=72.0 Units=Inches 08/31/2020
--- NOTE | 2024-12-22 06:36 | SUR.OPER ---
Patient brought to GI Lab. Instructions for patient undergoing Capsule Endoscopy reviewed with patient. Consent form signed. Sensor array applied to patient's abdomen and connected to recorded. Patient swallowed capsule with 2 cups of water infused with Simethicone. Patient instructed they may have clear liquids at 0815 this AM and eat or drink at 1015 this AM. Patient instructed to return to GI Lab at 1500 this afternoon for removal of recording device and to call [phone] or to return to the hospital if any nausea and vomiting or abdominal pain is experienced.
--- NOTE | 2024-12-22 15:30 | SUR.PREOP ---
Patient returned to the GI Lab at for recorder box removal. Patient voiced no complaints. States they have understanding of instructions. Patient left ambulatory.
== END 2024-12-22 05:20 | disposition home or self-care (01) ==
PROVIDERS: PCP Internal Medicine; Referring Provider Internal Medicine Gastroenterology; Visit Provider Internal Medicine Gastroenterology
PROC: 0DJ07ZZ Inspection of Upper Intestinal Tract, Via Natural or Artificial Opening (ICD-10-PCS; CPT 91110; principal; 2024-12-22 07:00)
DX: Z01.812 Encounter for preprocedural laboratory examination (principal); D50.9 Iron deficiency anemia, unspecified
CPT/HCPCS: 91110

== ENCOUNTER 2025-03-09 11:50 | Inpatient (IN) | payer MEDICARE, SELFPAY ==
[2025-03-09] VITALS (40 sets, daily range): BP systolic 104–126; BP diastolic 44–103; PULSE 61–100; RESP 12–39; TEMP 36.9–37; O2SAT 89–98
--- NOTE | ~2025-03-09 | CT_ITS ---
EXAMINATION: CTA chest PE protocol DATE: 03/09/2025 20:53 CDT INDICATION: Hypoxia, elevated d-dimer, hemoptysis TECHNIQUE: Computed tomographic angiography (CTA) of the chest was performed with 100 mL Omnipaque-35 0 intravenous contrast. The dose-length product was 1040.53 mGy-cm. Maximum intensity projection 3D-r econstructions of the aorta and other arteries were constructed by the technologist on a separate wor kstation. COMPARISON: None. Reference is made to a CT examination of the chest without contrast dated 03/02/2024. FINDINGS/OBSERVATIONS: PULMONARY ARTERIES: No filling defect is identified within the main or proximal pulmonary artery. The main pulmonary artery is enlarged. THORACIC AORTA: No aneurysmal dilatation or dissection is present. The great vessels are intact LUNGS: Bibasilar consolidation with small bilateral pleural effusions. MEDIASTINUM: Multiple morphologically suspicious and pathologically enlarged lymph nodes are identifi ed within the mediastinum, supraclavicular region and bilateral axilla. The largest lymph node is wit hin the aortopulmonary window measuring millimeters in short axis dimension. BONES OF THE CHEST: No acute fracture. There are bridging endplate osteophytes at multiple levels in the lower thoracic spine, consistent wi th diffuse idiopathic skeletal hyperostosis (DISH). No lytic or blastic lesions. HEART: The heart is markedly enlarged, unchanged from prior, without pericardial effusion. IMPRESSION: No pulmonary embolus. No thoracic aortic dissection. Significant enlargement of the main pulmonary artery, consistent with pulmonary hypertension. Redemonstration of cardiomegaly. Extensive mediastinal and supraclavicular lymphadenopathy, unchanged from prior. Bibasilar consolidation with small bilateral pleural effusions. Reviewed, dictated and finalized at location A. IMPRESSION: No pulmonary embolus. No thoracic aortic dissection. Significant enlargement of the main pulmonary artery, consistent with pulmonary hypertension. Redemonstration of cardiomegaly. Extensive mediastinal and supraclavicular lymphadenopathy, unchanged from prior . Bibasilar consolidation with small bilateral pleural effusions.
--- NOTE | ~2025-03-09 | CT_ITS ---
Non-contrast Head CT History: Confusion COMPARISON: 01/13/2024 Technique: Axial non-contrast imaging of the brain was performed. Dose reduction technique was used on this scan by utilizing automated exposure control and iterative reconstruction technique. The dose -length product (DLP) was 605.33 mGy-cm. Findings: There is no evidence of intracranial hemorrhage, mass lesion, or acute infarct. Brain par enchyma appears normal. The ventricles and subarachnoid spaces are normal in size. The calvarium ap pears normal. The visualized paranasal sinuses and mastoid air cells are clear. Impression: No significant abnormality seen. Reviewed, dictated and finalized at location . Impression: No significant abnormality seen.
--- NOTE | ~2025-03-09 | XR_ITS ---
XR chest 1V 03/09/2025 13:40 Indication: Shortness of breath Procedure: AP portable chest Comparison: 10/19/2024 Findings: Status post median sternotomy for CABG. Cardiomegaly. Shallow inspiration. Right perihilar airspace disease, suspicious for pneumonia. Small right pleural effusion. There is extensive splenic artery calcification. No pneumothorax. Impression: 1: Right perihilar airspace disease, suspicious for pneumonia. 2: Small right pleural effusion. Reviewed, dictated and finalized at location A. Impression: 1: Right perihilar airspace disease, suspicious for pneumonia. 2: Small right pleural effusion.
--- NOTE | ~2025-03-09 | XR_ITS ---
XR chest 1V portable Ordering provider: Jersey Garsia MD History: 59 years Male with . Coughing up blood . Comparison: March 09, 2025 FINDINGS: MEDIASTINUM: The cardiac silhouette is slightly enlarged. Postoperative changes in the mediastinum. C ongestive genie. LUNGS: No effusions or pneumothorax. Bilateral perihilar and lower lobe opacification suggestive of p neumonia. Underlying pulmonary edema is not excluded. OTHER: No free air under the diaphragm. IMPRESSION: Bilateral basal pneumonia. Underlying pulmonary edema is not excluded. Reviewed, dictated and finalized at location A.
--- NOTE | ~2025-03-09 | XR_ITS ---
Portable chest x-ray Comparison: 03/10/2025 Clinical History: Shortness of breath Findings: There is central congestive change of [id number] pulmonary edema pattern and probabl e bibasilar ectatic change. Cardiomediastinal silhouette is stable. Bones and soft tissues are unrem arkable. Impression: Mild to moderate pulmonary edema with central congestive change and mild bibasilar atelectasis. Stable cardiomegaly. Reviewed, dictated and finalized at location . Impression: Mild to moderate pulmonary edema with central congestive change and mild bibasi lar atelectasis. Stable cardiomegaly.
--- NOTE | ~2025-03-09 | XR_ITS ---
EXAMINATION: XR chest 1V portable DATE: 03/13/2025 06:31 INDICATION: Hypoxia TECHNIQUE: frontal view of the chest was obtained. COMPARISON: Chest radiograph dated 03/11/2025 FINDINGS: No significant change in opacities in the bilateral lower lung zones. No pneumothorax or pleural effu basilia. Cardiomegaly. Median sternotomy wires and mediastinal surgical clips are seen, likely from prio r coronary artery bypass grafting. Coronary artery stenting. Old healed left clavicle fracture. IMPRESSION: 1. Unchanged mild opacities in the lower lung zones which could represent atelectasis or pneumonia. 2. Cardiomegaly. Reviewed, dictated and finalized at location A. IMPRESSION: 1. Unchanged mild opacities in the lower lung zones which could represent atele ctasis or pneumonia. 2. Cardiomegaly.
--- NOTE | 2025-03-09 12:03 | ECG_ITS ---
Test Date: 2025-03-09 11:59:50 Measurements Intervals Robertson Rate: 64 P: 0 FL: 0 QRS: -72 QRSD: 128 T: 30 QT: 458 QTc: 476 Interpretive Statements UNDETERMINED ECTOPIC ATRIAL RHYTHM VERSUS ACCELERATED JUNCTIONAL RHYTHM INTRAVENTRICULAR CONDUCTION DELAY ABNORMAL ECG Compared to ECG 10/26/2024 10:11:08 NO DIFFERENCE Electronically Signed On 03-10-2025 07:34:53 CDT by Brayden Lynne M.D.
[2025-03-09 12:16] LABS: Hematocrit 28.8 % (42.0-52.0); Hemoglobin 8.8 g/dL (14.0-18.0); Immature Granulocyte Percent A 0.7 % (0-0.5); Immature Platelet Fraction Pct 5.5 % (0.9-11.2); Lymphocytes Absolute Auto 0.36 K/mm3 (0.9-3.2); Mean Corpuscular HGB Conc 30.6 g/dl (32-36); Mean Corpuscular Hemoglobin 32.1 pg (26-34); Mean Corpuscular Volume 105.1 fl (80-100); Nucleated Red Blood Cells Absolute Auto 0.000 K/mm3 (0.0-0.012); Nucleated Red Blood Cells Perc 0.0 % (0.0-0.2); Platelet Count Result 57 k/mm3 (150-375); Red Blood Count 2.74 M/mm3 (4.6-6.20); White Blood Count 10.1 K/mm3 (4.5-10.0)
[2025-03-09 12:24] LABS: Alanine Aminotransferase 19 U/L (6-50); Albumin Level 3.2 g/dL (3.5-5.1); Alkaline Phosphatase 140 U/L (38-126); Anion Gap 14 mmol/L (4-12); Aspartate Amino Transferase 23 U/L (17-59); Bilirubin,Total 0.8 mg/dL (0.2-1.3); Blood Urea Nitrogen 79 mg/dL (9-20); Calcium 8.6 mg/dL (8.4-10.2); Carbon Dioxide 25 mmol/L (22-30); Chloride 101 mmol/L (98-107); Estimated CRCL calculation 9 ml/min; Estimated Glomerular Filt Rate 6; Glucose 150 mg/dL (65-110); Potassium 5.5 mmol/L (3.4-5.0); Sodium 140 mmol/L (137-145); Total Protein 7.1 g/dL (6.3-8.2)
[2025-03-09 13:02] LABS: Macrocytosis 1+ (NORMAL); Schistocytes None Seen
--- OUTSIDE RECORDS SUMMARY | 2025-03-09 13:12 | XMS_ITS ---
Author Organization [facility] [place] [address] Address [address] [place] [address] Care Team Providers Care Floral Associate Name Role Phone Frandy Colunga MD Unavailable [phone] Alcon Quintanilla DPM Unavailable [phone] No, Physician Primary Care Provider [phone] Theodore Solis MD Unavailable Leah MARINO MD, Raul Woodard Unavailable [phone] Dialysis Access Sites Type Status Location Placement [...] 5:16 AM CDT COLONOSCOPY 11/03/2021 12:44 PM CARD GRINDER HEPATITIS C ANTIBODY Routine 09/20/2020 8:35 PM CARD GRINDER from Last 3 Months or Most Recently [...] of displacement. Discussed extensively with director of solutions architecture and therapy. We will proceed with therapy [...] reminded patient has sister and director of solutions architecture at this appointment at [facility] at 1:[address] Bradley. We [...] presented with mental status changes from the retirement and found to have acute cholecystitis. Likely acute metabolic encephalopathy. Treat underlying cause. Mental status is improving. Closed left subtrochanteric femur fracture, sequ christiana 02/28/2023 Assessment & Plan (04/09/2023 7:04 PM CDT): Ortho fu pending, don aware Assessment & Plan (04/03/2023 5:26 PM CDT): Nonoperative management was recommended at [facility] earlier this summer. We will arrange outpatient follow up with Orthopedics but seems to be asymptomatic on that leg Assessment & Plan (03/26/2023 3:12 PM CDT): As per HPI, pain seems somewhat better controlled on current regimen. Recent x- rays did not show any new fractures. I reminded director of solutions architecture the patient appears to still need appointment made with Orthopedics at [place]. Phone #[phone] Assessment & Plan (03/18/2023 4:48 PM CDT): [...] control with oxycodone. Discussed with director of solutions architecture about getting follow up with Orthopedics in [...] to be slowly improving. Reminded director of solutions architecture that patient has on April 23 appointment with Neurosurgery at [facility] at 1:30 p.m. along with [...] clinically improving neurologically. Discussed with director of solutions architecture about getting neurosurgery follow up in about [...] 08/08/2021 Assessment & Plan (10/27/2021 3:09 PM CARD GRINDER): EGD/Colonoscopy scheduled for 11/03/21 Hold aspirin 10/29/21 Assessment & Plan (08/15/2021 1:41 PM CARD GRINDER): Patient was referred for colonoscopy and has appointment with GI. Abdominal pain has resolved. Assessment & Plan (08/08/2021 12:33 PM CARD GRINDER): Last colonoscopy 2012 (Unavailable). Recurrent rectal pain and diarrhea. No hemorrhoids. Check CBC. Encounter for surgical after care following surgery of circulatory system 06/16/2021 Chronic diarrhea 06/06/2021 Assessment & Plan (10/03/2021 9:10 AM CARD GRINDER): Pt was given Lomotil due to diarrhea and now c/o constipation. Resume questran and loperamide when constipation resolved. Assessment & Plan (07/28/2021 12:53 PM CARD GRINDER): Pt was given Lomotil due to diarrhea and now c/o constipation. Resume questran and loperamide when constipation resolved. Assessment & Plan (07/18/2021 1:25 PM CARD GRINDER): Continue cholestyramine and loperamide. Assessment & Plan [...] therapy Assessment & Plan (10/03/2021 9:09 AM CARD GRINDER): Patient's pain is controlled with [place] Patient needs AKA wound functional level for prosthesis for transfer and ambulation on level surfaces at a fixed candence Assessment & Plan (06/14/2021 2:19 PM CDT): Percocet change to [place] as patient could not tolerate Assessment & Plan (05/31/2021 1:38 PM CDT): Continue PT/OT. Recurrent major depressive disorder, in remissio n 05/31/2021 Assessment & Plan (03/18/2023 4:46 PM CDT): Cont remeron, stable but fluctuates due to recent hosp stay and illnesses Assessment & Plan (07/28/2021 12:53 PM CARD GRINDER): Continue Remeron and Zoloft. Assessment & Plan [...] tomorrow. Assessment & Plan (10/03/2021 9:11 AM CARD GRINDER): Continue Tradjenta and Glargine. Blood sugars have been stable between 70 and 150 Assessment & Plan (09/05/2021 12:27 PM CARD GRINDER): Continue Tradjenta and Glargine. Check A1c every 90 days. Assessment & Plan (08/01/2021 11:57 AM CARD GRINDER): Blood glucose 110 - 138 Continue Glargine and Tradjenta Assessment & Plan (07/18/2021 1:24 PM CARD GRINDER): Continue Tradjenta and glargine insulin. 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 Continue Metoprolol, Aspirin. Assessment & Plan (08/01/2021 11:54 AM CARD GRINDER): Not on anticoagulation. Continue Metoprolol, Aspirin. Assessment & Plan (05/16/2021 9:05 AM CDT): - Not on anticoagulation - Continue metoprolol Assessment & Plan (02/22/2021 10:43 AM CDT): - Not on anticoagulation - Continue metoprolol Fall 02/22/2021 Assessment & Plan (02/22/2021 3:28 PM CDT): - Patient fell at facility 02/21 HELP AID, states he rolled out of bed and [...] (12/05/2020): Added automatically from request for surgery [id number] End-stage renal disease on hemodialysis 09/14/19 Assessment [...] hemodialysis. Assessment & Plan (10/27/2021 3:10 PM CARD GRINDER): Continue hemodialysis weekly. Assessment & Plan (08/07/2021 10:27 AM CARD GRINDER): Currently on Sevelamer and Ferrous sulfate. Hemodialysis three days weekly. Assessment & Plan (07/14/2021 1:51 PM CARD GRINDER): Continue Sevelamer and Ferrous sulfate. Assessment & [...] schedule Assessment & Plan (09/21/2020 8:33 AM CARD GRINDER): - ESRD on dialysis as of August [...] Renvela. Assessment & Plan (09/15/2020 11:00 AM CARD GRINDER): - Related to increased needs, chronic illness/injury and wounds - Nutrition consulted - Consistent carb diet. Will allow double portions of meat. - Supplements ordered Foot ulcer due to secondary DM 09/13/2020 Assessment & Plan (09/21/2020 8:32 AM CARD GRINDER): Right foot wounds appeared about 1 month [...] Continue aspirin + Plavix daily Atherosclerosis of unga artery of right lower extremity 09/06/2020 Overview (09/06/2020): Added automatically from request for surgery [id number] Peripheral arterial disease ([facility]) 09/06/2020 Overview (09/06/2020): Added automatically from request for surgery [id number] Assessment & Plan (03/06/2023 4:14 PM CDT): Continue medical management with statin. Patient is status post bilateral amputations for this reason Assessment & Plan (10/03/2021 9:13 AM CARD GRINDER): Patient to continue aspirin Assessment & Plan [...] chair Assessment & Plan (09/18/2020 8:47 AM CARD GRINDER): - s/p left BKA 05/2020. Presents now [...] 06/23/2020 Assessment & Plan (09/05/2021 12:26 PM CARD GRINDER): Continue working with PT/OT. Follow up outpatient for prosthetic. Assessment & Plan (08/15/2021 1:43 PM CARD GRINDER): Continue PT/OT Continue outpatient follow up for prosthetic on 08/21/21 (2pm), 08/28/21 (11am), and 09/06/21 (11am). Assessment & Plan (08/08/2021 12:35 PM CARD GRINDER): Seen outpatient for prosthetic yesterday and has follow up again 08/21/21 (2pm), 08/28/21 (11am), and 09/06/21 (11am) Assessment & Plan (08/07/2021 10:29 AM CARD GRINDER): Denies phanthom limb pain. Pain controlled cyclobenzaprine, Acetaminophen, and Gabapentin. Assessment & Plan (08/01/2021 11:53 AM CARD GRINDER): Continue Aspirin and Gabapentin. Pain well controlled. Assessment & Plan (07/07/2021 12:45 PM CDT): Follow-up outpatient for prosthesis ([place]) Continue gabapentin, acetaminophen, and physical and occupational therapy as tolerated. Assessment & Plan (06/29/2021 1:45 PM CDT): Patient measured for below-knee education general manager is yesterday and will follow-up for fitting ([place]). Incision well-healed. Continue PT/OT. Continue gabapentin and acetaminophen. Assessment & Plan (06/19/2021 1:55 PM CDT): Patient had follow-up with vascular surgeon. Sutures removed and patient recommended for residual limb education general manager. Pain well controlled. Continue PT/OT Assessment & Plan (06/08/2021 3:02 PM CDT): Patient unable to tolerate oxycodone due to increased confusion. Discussed with MD and will discontinue oxycodone and changed to [place] to help with postoperative pain. Assessment & [...] and OT Bed will be available at [facility] tomorrow Patient was not accepted at [facility] rehab per social services coordinator Assessment & Plan (06/29/2020 9:55 AM CDT): [...] 05/19/2020 Assessment & Plan (07/14/2021 1:52 PM CARD GRINDER): Continue Lasix 40 mg daily Assessment & Plan (09/15/2020 10:36 AM CARD GRINDER): - Echo from 05/2020 LVEF 34% otherwise [...] degree HB on tele w/ very prolonged OK interval and resting bradycardia to mid 50-60s [...] degree HB on tele w/ very prolonged OK interval and resting bradycardia to mid 50-60s [...] degree HB on tele w/ very prolonged OK interval and resting bradycardia to mid 50s, [...] degree HB on tele w/ very prolonged OK interval and resting bradycardia to mid 50s, [...] degree HB on tele w/ very prolonged OK interval, consider restarting - on Entresto 49-51 [...] degree HB on tele w/ very prolonged OK interval, consider restarting - on Entresto 49-51 [...] degree HB on tele w/ very prolonged OK interval. Restart if able. - on Entresto [...] degree HB on tele w/ very prolonged OK interval. Restart if able. - on Entresto [...] Plan (05/19/2020 9:20 AM CDT): - BNP 39170 - Restart home carvedilol - Diuresis 2017 [...] (05/18/2020): Added automatically from request for surgery [id number] Assessment & Plan (06/01/2020 10:34 AM CDT): [...] (05/19/2020): Added automatically from request for surgery [id number] Assessment & Plan (02/28/2023 9:46 AM CDT): [...] eye. Assessment & Plan (09/22/2019 3:29 PM CARD GRINDER): New cataract evaluation today Mature cataract OS [...] on admission with NSR with severely prolonged OK - as noted above, resuming low dose coreg - telemetry Assessment & Plan (06/29/2020 9:55 AM CDT): History of post-op AF - Not on AC on admission, ECG on admission with NSR with severely prolonged OK - as noted above, resuming low dose coreg - telemetry Assessment & Plan (06/28/2020 10:30 AM CDT): History of post-op AF - Not on AC on admission, ECG on admission with NSR with severely prolonged OK - Holding coreg for now while on dobutamine - telemetry Assessment & Plan (06/27/2020 1:26 PM CDT): History of post-op AF - Not on AC on admission, ECG on admission with NSR with severely prolonged OK - Holding coreg for now while on dobutamine - telemetry Assessment & Plan (06/26/2020 12:02 PM CDT): History of post-op AF - Not on AC on admission, ECG on admission with NSR with severely prolonged OK - Holding coreg for now while on dobutamine - telemetry Assessment & Plan (06/25/2020 2:28 PM CDT): History of post-op AF - Not on AC on admission, ECG on admission with NSR with severely prolonged OK - Holding coreg for now while on dobutamine - telemetry Assessment & Plan (06/24/2020 3:35 PM CDT): History of post-op AF - Not on AC on admission, ECG on admission with NSR with severely prolonged OK - Holding coreg for now while on dobutamine - telemetry Assessment & Plan (06/23/2020 9:22 AM CDT): History of post-op AF - Not on AC on admission, ECG on admission with NSR with severely prolonged OK - Holding coreg for now while on dobutamine - telemetry Assessment & Plan (06/22/2020 12:01 PM CDT): History of post-op AF - Not on AC on admission, ECG on admission with NSR with severely prolonged OK - Holding coreg for now while on dobutamine - telemetry Assessment & Plan (06/21/2020 10:44 AM CDT): History of post-op AF - Not on AC on admission, ECG on admission with NSR with severely prolonged OK - Holding coreg for now while on dobutamine - telemetry Assessment & Plan (06/20/2020 11:49 AM CDT): History of post-op AF - Not on AC on admission, ECG on admission with NSR with severely prolonged OK - Holding coreg for now while on [...] - Pt remains under wound care at [facility]. - Discussed with patient the rational for treatment, culture results, risk of recurrent infection, signs/symptoms of recurrent infection, and to contact ID clinic with any questions or concerns. Assessment & Plan (06/30/2020 10:47 AM CDT): S/p L BKA - Continue daily wound care - PT/OT eval and treat Patient will be going to [facility] tomorrow. 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 Sae [...] Isordil Assessment & Plan (09/17/2020 6:52 AM CARD GRINDER): - VS Q4 hrs - Continue home Lasix, hydralazine, metoprolol, Isordil Assessment & Plan (06/28/2020 10:41 AM CDT): - Elevated blood pressure - continue hydralazine 100 mg tid, isosorbide 40 mg tid - Coreg held with recent HOT DIE PICKER, likely resume low dose tomorrow Assessment & Plan (06/27/2020 1:27 PM CDT): - Elevated blood pressure - continue hydralazine 100 mg tid, isosorbide 40 mg tid - Coreg held with recent HOT DIE PICKER, likely resume tomorrow Assessment & Plan (06/26/2020 12:05 PM CDT): -Elevated blood pressure - continue hydralazine 100 mg tid, isosorbide 40 mg tid -Coreg held while on HOT DIE PICKER Assessment & Plan (06/25/2020 2:31 PM CDT): -Elevated blood pressure - continue hydralazine 100 mg tid, isosorbide 40 mg tid -Coreg held while on HOT DIE PICKER Assessment & Plan (06/24/2020 3:58 PM CDT): -Elevated blood pressure - continue hydralazine 100 mg tid, isosorbide 40 mg tid -Coreg held while on HOT DIE PICKER Assessment & Plan (06/23/2020 10:00 AM CDT): Elevated blood pressure - continue hydralazine 100 mg tid, isosorbide 40 mg tid Off carvedilol while being on dobutamine Continue to monitor Assessment & Plan (05/31/2020 11:11 AM CDT): On home carvedilol, held due to 1st degree HB with prolonged OK interval, borderline HR (56-60) - Start amlodipine 5mg Assessment & Plan (05/30/2020 1:28 PM CDT): On home carvedilol, held due to 1st degree HB with prolonged OK interval, borderline HR (56-60) - Start amlodipine 5mg Assessment & Plan (05/29/2020 10:58 AM CDT): On home carvedilol, held due to 1st degree HB with prolonged OK interval, borderline HR (56-60) - Start amlodipine 5mg Assessment & Plan (05/26/2020 12:36 PM CDT): On home carvedilol, held due to 1st degree HB with prolonged OK interval, borderline HR (56-60) - Start amlodipine [...] often do you attend chur ch or orthodoxy services? Never 03/12/2023 Do you belong to [...] No 03/11/2023 Housing Stability Vital Sign Answer Josehp e Recorded In the last 12 months, [...] on file Legal Sex Male 4:17 AM CARD GRINDER Gender Identity Not on file Sexual Orientation [...] MD LAB BLOOD ORDERABLES Final Result [facility] [address] [facility] Department [place] [address] * Hemoglobin A1c (02/15/2023 5:16 AM CDT) [...] Arias MD LAB BLOOD ORDERABLES Final Result [facility] Department [place] [address] * (ABNORMAL) Lipid panel (02/15/2023 5:16 AM CDT) Cholesterol 75 30 - 199 mg/dL [facility] Comment: Interpretive Data Ages < or = [...] revised on 2018. Triglycerides 81 <=149 mg/dL [facility] Comment: Interpretive Data Ages < or = [...] on 2018. HDL 26(L) >=40 mg/dL [facility] Comment: Interpretive Data Ages < or = [...] 2018. LDL, calculated 33 <=129 mg/dL [facility] Comment: Interpretive Data Ages < or = [...] on 2018. Non-HDL Cholesterol 49 mg/dL [facility] Comment: Interpretive Data Ages < or = [...] last revised on 2018. Chol/HDL ratio 3 [facility] Blood 02/15/2023 5:16 AM CDT 02/15/2023 5:57 AM CDT us Marcella Arias MD LAB BLOOD ORDERABLES Final Result [facility] [place] [address] * COLONOSCOPY (11/03/2021 12:44 PM CARD GRINDER) Anatomical Region Laterality Modality Other Narrative Procedure Note Brayden Lerma MD - 11/03/2021 12:44 PM CST [facility] Patient Name: Kobi Salter Procedure Date: 11/03/2021 12:44 PM Date of : 1965 Admit Type: Outpatient Age: 56 Gender: Male Note Status: Finalized Attending MD: Brayden Lerma M.D. Procedure Date: 11/03/2021 Procedure: Colonoscopy Indications: Chronic diarrhea Patient Profile: This is a 56 year old male. Diarrhea. Providers: Brayden Lerma M.D., Teresa Ross, TANYA (Anesthesia Staff), Gini Izquierdo RN, Jose A Vuong,Boring Machine Set Up Operator Referring MD: Jewels Lamas M.D. Medicines: [...] bowel preparation was evaluated using the BBPS ([place] Bowel Preparation Scale)with scores of: Right Colon [...] 5 years for screeningpurposes. Electronically signed by Braydne Lerma MD Brayden Lerma M.D. 11/03/2021 1:50:58 PM Number of Addenda: 0 Note Initiated On: 11/03/2021 12:44 PM us Brayden Lerma MD ENDOSCOPY PROCEDURES Final Re sult * Hepatitis C antibody (09/20/2020 8:35 PM CARD GRINDER) Hep C Ab Nonreactive Nonreactive [facility] Comment:Antibodies to HCV no t detected. Does NOT exclude the possibility of recent exposure to HCV. Blood specimen (specimen) 09/20/2020 8:35 PM CARD GRINDER 09/20/2020 10:17 PM CARD GRINDER us Jasson Teague NP LAB MICROBIOLOGY - GENE RAL ORDERABLES Final Result [facility] Department [place] [address] from Last 3 Months or Most Recently Relevant to Health Maintenance
--- OUTSIDE RECORDS SUMMARY | 2025-03-09 13:12 | XMS_ITS | Clinical Summary ---
Author Organization [facility] Address [address] [place] [address] Care Team Providers Care Hand Brush Filler Name Role Phone Guerita Paulino MD Primary Care Provider [phone] Allergies Active Allergy Reactions Criticality Noted Date [...] often do you attend chur ch or confucianist services? Never 07/28/2020 Do you belong to any clubs o r organizations such as amish groups, unions, fraternal or athletic groups, or [...] medical care, and heating? Somewhat hard 07/28/2020 [facility] [place] of Occupat ional Health - Occupational Stress [...] Sex Assigned at Male 07/28/2020 4:01 PM WELL DRILLER HELPER Legal Sex Male 4:30 PM CDT Gender Identity Male 07/28/2020 4:01 PM WELL DRILLER HELPER Sexual Orientation Straight 07/28/2020 4: 01 PM WELL DRILLER HELPER Last Filed Vital Signs Vital Sign Reading Time Taken Comments Blood Pressure 141/56 08/15/2020 11:15 AM WELL DRILLER HELPER Pulse 64 08/15/2020 11:15 AM WELL DRILLER HELPER Temperature 36.9 C (98.4 F) 08/15/2020 11:15 AM WELL DRILLER HELPER Respiratory Rate 18 08/15/2020 11:1 5 AM WELL DRILLER HELPER Oxygen Saturation 91% 08/15/2020 11: 15 AM WELL DRILLER HELPER Inhaled Oxygen Concentration - - Weight 106.8 kg (235 lb 7.2 oz) 08/15/2020 4:10 AM WELL DRILLER HELPER Height 182.9 cm (6') 07/28/2020 8:44 AM WELL DRILLER HELPER Body Mass Index 31.93 07/28/2020 8:44 AM WELL DRILLER HELPER Plan of Treatment Health Maintenance Due Date Last Done Comments Colorectal Cancer Screening Colonoscopy (10 Years) 1965 Annual Physical 1966 Hepatitis C 1981 DTaP, Tdap and Td Vaccines ( 1 - Tdap) 1982 Pneumococcal Vaccine: 50+ Ye ars (1 of 1 - PCV) 2013 Zoster Vaccines (1 of 2) 2013 COVID-19 Vaccine (1 - 2023-2 5 season) 2024 PHQ-2 (Physician [place]) 09/02/2024 RSV Immunization or 60+ Years (1 [...] this topic Medical Devices Implanted Type Area Mixer Operator Vacuum Pan Salt Device Identifier Shelf Expiration Date Model / Serial / Lot Set Cath 23cm 15fr 18ga .038in Polyure Arw Smp Ar - [id number] Implanted:Qty : 1 on 08/12/2020 by Eliecer Oropeza MD at [facility] Catheter Implant N/A: Neck [employer] - DIV OF [employer] [id number] / / Insurance [place] Advance Directives * Full Code (Latest Code Status on File) Date Activated Date Inactivated Comments 08/12/2020 3:26 PM 08/15/2020 6:39 PM * Full Code Date Activated Date Inactivated Comments 07/28/2020 1:38 PM 08/12/2020 3:26 PM Care Teams Hand Brush Filler Relationship Specialty Start Date End Date [place] [address] PCP - General INTERNAL MEDICINE 07/28/20
--- OUTSIDE RECORDS SUMMARY | 2025-03-09 13:12 | XMS_ITS | Encounter Summary ---
Author Organization [facility] Address [address] [place] [address] Phone Care Team Providers Care Pipeline Superintendent Name Role Phone Avery Tay MD Primary Care Provider [phone] No, Physician Primary Care Provider [phone] Avery Tay MD Primary Care Provider [phone] Mariposa Smalls RN Unavailable Warner Sidhu MD PhD Unavailable + Jewels Lamas MD Primary Care Provider + [phone] Mariposa Smalls RN Unavailable Frandy Colunga MD Unavailable [phone] Alcon Quintanilla DPM Unavailable [phone] No, Physician Primary Care Provider [phone] Theodore Solis MD Unavailable [phone] Leah MARINO MD, Raul Woodard Unavailable + [phone] Encounter Details Date Type Department Care Team (Latest Contact Info) Description 09/06/2017 Orders Only [facility] CONVERSION Scanning, Provider Social History Tobacco Use Types Packs/Day Years Used Date Smoking Tobacco: Never Assessed Sex and Gender Information Value Date Recorded Sex Assigned at Not on file Legal Sex Male 4:17 AM TOOL DESIGN DRAFTSPERSON Gender Identity Not on file Sexual Orientation Not on file documented as of this encounter Plan of Treatment Not on file documented as of this encounter Procedures Procedure Name Priority Date/Time Associated Diagnosis Comments VASCULAR LABORATORY REPORT 09/12/2017 3:49 PM TOOL DESIGN DRAFTSPERSON VASCULAR LABORATORY REPORT 09/06/2017 2:11 PM TOOL DESIGN DRAFTSPERSON VASCULAR LABORATORY REPORT 09/06/2017 1:55 PM TOOL DESIGN DRAFTSPERSON documented in this encounter Results * VASCULAR LABORATORY REPORT (09/12/2017 3:49 PM TOOL DESIGN DRAFTSPERSON) Anatomical Region Laterality Modality Ultrasound us Provider Scanning CV VASCULAR PROCEDURES Final R esult * VASCULAR LABORATORY REPORT (09/06/2017 2:11 PM TOOL DESIGN DRAFTSPERSON) Anatomical Region Laterality Modality Ultrasound us Provider Scanning CV VASCULAR PROCEDURES Final R esult * VASCULAR LABORATORY REPORT (09/06/2017 1:55 PM TOOL DESIGN DRAFTSPERSON) Anatomical Region Laterality Modality Ultrasound us Provider [...] was positive for COVID19 on 08/07/20 at [facility]; lab in Care Everywhere. There are no present respiratory concerns for this admission. Patient presents for wound assessment and management. Pt meets Recovered criteria. Becka Nation RN 09/13/2020 09/13/2020 09/13/2020 11:00 PM TOOL DESIGN DRAFTSPERSON COVID: Recovered Comment:09/13/2020 IP Review - See note below regarding prior positive on 08/07/20 at [facility]. Spoke to ED team and there are no respiratory concerns at this time. Becka Nation RN 09/13/2020 09/13/2020 04/05/2021 3:05 AM C DT MRSA 11/14/2020 11/18/2020 10/31/2021 4:00 AM TOOL DESIGN DRAFTSPERSON COVID: Suspected 02/13/2021 02/13/2021 02/13/2021 10:13 PM CDT COVID: Suspected 04/22/2021 04/22/2021 04/22/2021 7:17 AM CDT VRE 05/19/2021 05/19/2021 11/15/2021 3:05 AM CDT COVID: Suspected 12/06/2022 12/06/2022 12/06/2022 2:04 PM CDT COVID: Suspected 03/10/2023 03/10/2023 03/10/2023 10:14 AM CDT MRSA 03/11/2023 04/16/2023 10/13/2023 3:05 AM TOOL DESIGN DRAFTSPERSON MDR gram neg/ESBL 04/16/2023 04/16/2023 C. difficile 04/26/2023 04/26/2023 documented as of this encounter Care Teams Pipeline Superintendent Relationship Specialty Start Date End Date Avery Tay MD [address] [place] [address] [place] [address] PCP - General 05/31/17 11/15/19 No, Physician PCP - General 11/16/19 02/23/20 Avery Tay MD [address] [place] [address] [place] [address] PCP - General 02/24/20 09/05/20 Jewels Lamas MD [address] [address] PCP - General Family Practice 09/06/20 02/13/23 No, Physician PCP - General 02/14/23 Mariposa Smalls, NOEMI [address] [phone] Spout Liner Helper Cardiology 06/30/20 Warner Sidhu MD PhD [address] [address] Retail Associate Manager Bilingual Cardiology 06/30/20 03/29/21 Mariposa Smalls, RN [address] [address] Spout Liner Helper Cardiology 06/30/20 Frandy Colunga MD [address] [address] Surgeon Vascular Surgery 02/28/21 Alcon Quintanilla DPM [address] [address] Surgeon Podiatry 02/28/21 Theodore oSlis MD [address] [place] [id number] Consulting Physician Internal Medicine 03/16/23 Raul Lynn IV, MD [address] [place] [address] Consulting Physician General Surgery 04/30/23 documented as of this encounter
--- OUTSIDE RECORDS SUMMARY | 2025-03-09 13:12 | XMS_ITS | Clinical Summary ---
Author Organization [facility] [address] [place] [address] Care Team Providers Care Dough Mixing Machine Operator Name Role Phone Frandy Colunga MD Unavailable [phone] Alcon QuintanillaM Unavailable [phone] No, Physician Primary Care Provider [phone] Theodore Solis MD Unavailable [phone] Leah MARINO MD, Raul [place] Unavailable Allergies Active Allergy Reactions Criticality Noted [...] no signs of displacement. Discussed extensively with equal opportunity director and therapy. We will proceed with [...] GI. I reminded patient has sister and equal opportunity director at this appointment at [facility] at 1:[address] Bradley. [...] presented with mental status changes from the long-term and found to have acute cholecystitis. Likely acute metabolic encephalopathy. Treat underlying cause. Mental status is improving. Closed left subtrochanteric femur fracture, sequ christiana 02/28/2023 Assessment & Plan (04/09/2023 7:04 PM CDT): Ortho fu pending, aquiilno phan Assessment & Plan (04/03/2023 5:26 PM CDT): Nonoperative management was recommended at [facility] earlier this summer. We will arrange outpatient follow up with Orthopedics but seems to be asymptomatic on that leg Assessment & Plan (03/26/2023 3:12 PM CDT): As per HPI, pain seems somewhat better controlled on current regimen. Recent x- rays did not show any new fractures. I reminded equal opportunity director the patient appears to still need appointment made with Orthopedics at [place]. Phone #[phone] Assessment & Plan (03/18/2023 4:48 PM CDT): [...] as pain control with oxycodone. Discussed with equal opportunity director about getting follow up with Orthopedics [...] status seems to be slowly improving. Reminded equal opportunity director that patient has on April 23 appointment with Neurosurgery at [facility] at 1:30 p.m. along with the [...] to be clinically improving neurologically. Discussed with equal opportunity director about getting neurosurgery follow up in [...] 08/08/2021 Assessment & Plan (10/27/2021 3:09 PM OIL FIRE SPECIALIST): EGD/Colonoscopy scheduled for 11/03/21 Hold aspirin 10/29/21 Assessment & Plan (08/15/2021 1:41 PM OIL FIRE SPECIALIST): Patient was referred for colonoscopy and has appointment with GI. Abdominal pain has resolved. Assessment & Plan (08/08/2021 12:33 PM OIL FIRE SPECIALIST): Last colonoscopy 2012 (Unavailable). Recurrent rectal pain and diarrhea. No hemorrhoids. Check CBC. Encounter for surgical after care following surgery of circulatory system 06/16/2021 Chronic diarrhea 06/06/2021 Assessment & Plan (10/03/2021 9:10 AM OIL FIRE SPECIALIST): Pt was given Lomotil due to diarrhea and now c/o constipation. Resume questran and loperamide when constipation resolved. Assessment & Plan (07/28/2021 12:53 PM OIL FIRE SPECIALIST): Pt was given Lomotil due to diarrhea and now c/o constipation. Resume questran and loperamide when constipation resolved. Assessment & Plan (07/18/2021 1:25 PM OIL FIRE SPECIALIST): Continue cholestyramine and loperamide. Assessment & Plan [...] therapy Assessment & Plan (10/03/2021 9:09 AM OIL FIRE SPECIALIST): Patient's pain is controlled with Rock Patient needs AKA wound functional level for prosthesis for transfer and ambulation on level surfaces at a fixed candence Assessment & Plan (06/14/2021 2:19 PM CDT): Percocet change to Rock as patient could not tolerate Assessment & Plan (05/31/2021 1:38 PM CDT): Continue PT/OT. Recurrent major depressive disorder, in remissio n 05/31/2021 Assessment & Plan (03/18/2023 4:46 PM CDT): Cont remeron, stable but fluctuates due to recent hosp stay and illnesses Assessment & Plan (07/28/2021 12:53 PM OIL FIRE SPECIALIST): Continue Remeron and Zoloft. Assessment & Plan [...] tomorrow. Assessment & Plan (10/03/2021 9:11 AM OIL FIRE SPECIALIST): Continue Tradjenta and Glargine. Blood sugars have been stable between 70 and 150 Assessment & Plan (09/05/2021 12:27 PM OIL FIRE SPECIALIST): Continue Tradjenta and Glargine. Check A1c every 90 days. Assessment & Plan (08/01/2021 11:57 AM OIL FIRE SPECIALIST): Blood glucose 110 - 138 Continue Glargine and Tradjenta Assessment & Plan (07/18/2021 1:24 PM OIL FIRE SPECIALIST): Continue Tradjenta and glargine insulin. Assessment & Plan (06/29/2021 1:46 PM CDT): Stable on Tradjenta and glargine insulin. Assessment & Plan (06/06/2021 2:02 PM CDT): Continue Tradjenta and glargine Assessment & Plan (05/31/2021 1:46 PM CDT): Continue glargine and Tradjenta. Hypophosphatemia 05/30/2021 Assessment & Plan (05/30/2021 10:08 AM CDT): - Held sevelamer for low phosphorous level. - Given IV phos per renal 05/29 intermediate (current) use of antibiotics Assessment & Plan [...] ich Assessment & Plan (10/03/2021 9:09 AM OIL FIRE SPECIALIST): Not on anticoagulation. Continue Metoprolol, Aspirin. Assessment & Plan (08/01/2021 11:54 AM OIL FIRE SPECIALIST): Not on anticoagulation. Continue Metoprolol, Aspirin. 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 Assessment & Plan (10/27/2021 3:10 PM OIL FIRE SPECIALIST): Continue hemodialysis weekly. Assessment & Plan (08/07/2021 10:27 AM OIL FIRE SPECIALIST): Currently on Sevelamer and Ferrous sulfate. Hemodialysis three days weekly. Assessment & Plan (07/14/2021 1:51 PM OIL FIRE SPECIALIST): Continue Sevelamer and Ferrous sulfate. Assessment & [...] schedule Assessment & Plan (09/21/2020 8:33 AM OIL FIRE SPECIALIST): - ESRD on dialysis as of August [...] Renvela. Assessment & Plan (09/15/2020 11:00 AM OIL FIRE SPECIALIST): - Related to increased needs, chronic illness/injury and wounds - Nutrition consulted - Consistent carb diet. Will allow double portions of meat. - Supplements ordered Foot ulcer due to secondary DM 09/13/2020 Assessment & Plan (09/21/2020 8:32 AM OIL FIRE SPECIALIST): Right foot wounds appeared about 1 month [...] Continue aspirin + Plavix daily Atherosclerosis of [place] artery of right lower extremity 09/06/2020 Overview (09/06/2020): Added automatically from request for surgery [id number] Peripheral arterial disease ([facility]) 09/06/2020 Overview (09/06/2020): Added automatically from request for surgery [id number] Assessment & Plan (03/06/2023 4:14 PM CDT): Continue medical management with statin. 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 Presents now [...] 06/23/2020 Assessment & Plan (09/05/2021 12:26 PM OIL FIRE SPECIALIST): Continue working with PT/OT. Follow up outpatient for prosthetic. Assessment & Plan (08/15/2021 1:43 PM OIL FIRE SPECIALIST): Continue PT/OT Continue outpatient follow up for prosthetic on 08/21/21 (2pm), 08/28/21 (11am), and 09/06/21 (11am). Assessment & Plan (08/08/2021 12:35 PM OIL FIRE SPECIALIST): Seen outpatient for prosthetic yesterday and has follow up again 08/21/21 (2pm), 08/28/21 (11am), and 09/06/21 (11am) Assessment & Plan (08/07/2021 10:29 AM OIL FIRE SPECIALIST): Denies phanthom limb pain. Pain controlled cyclobenzaprine, Acetaminophen, and Gabapentin. Assessment & Plan (08/01/2021 11:53 AM OIL FIRE SPECIALIST): Continue Aspirin and Gabapentin. Pain well controlled. Assessment & Plan (07/07/2021 12:45 PM CDT): Follow-up outpatient for prosthesis (side panel hanger) Continue gabapentin, acetaminophen, and physical and occupational therapy as tolerated. Assessment & Plan (06/29/2021 1:45 PM CDT): Patient measured for below-knee cardiac cath technician is yesterday and will follow-up for fitting (side panel hanger). Incision well-healed. Continue PT/OT. Continue gabapentin and acetaminophen. Assessment & Plan (06/19/2021 1:55 PM CDT): Patient had follow-up with vascular surgeon. Sutures removed and patient recommended for residual limb cardiac cath technician. Pain well controlled. Continue PT/OT Assessment & Plan (06/08/2021 3:02 PM CDT): Patient unable to tolerate oxycodone due to increased confusion. Discussed with MD and will discontinue oxycodone and changed to Rock to help with postoperative pain. Assessment & [...] and OT Bed will be available at [facility] tomorrow Patient was not accepted at [facility] rehab per social worker assistant Assessment & Plan (06/29/2020 9:55 AM CDT): [...] 05/19/2020 Assessment & Plan (07/14/2021 1:52 PM OIL FIRE SPECIALIST): Continue Lasix 40 mg daily Assessment & Plan (09/15/2020 10:36 AM OIL FIRE SPECIALIST): - Echo from 05/2020 LVEF 34% otherwise [...] degree HB on tele w/ very prolonged MD interval and resting bradycardia to mid 50-60s [...] degree HB on tele w/ very prolonged MD interval and resting bradycardia to mid 50-60s [...] degree HB on tele w/ very prolonged MD interval and resting bradycardia to mid 50s, [...] degree HB on tele w/ very prolonged MD interval and resting bradycardia to mid 50s, [...] degree HB on tele w/ very prolonged MD interval, consider restarting - on Entresto 49-51 [...] degree HB on tele w/ very prolonged MD interval, consider restarting - on Entresto 49-51 [...] degree HB on tele w/ very prolonged MD interval. Restart if able. - on Entresto [...] degree HB on tele w/ very prolonged MD interval. Restart if able. - on Entresto [...] Plan (05/19/2020 9:20 AM CDT): - BNP 55533 - Restart home carvedilol - Diuresis 2017 [...] (05/18/2020): Added automatically from request for surgery [id number] Assessment & Plan (06/01/2020 10:34 AM CDT): [...] (05/19/2020): Added automatically from request for surgery [id number] Assessment & Plan (02/28/2023 9:46 AM CDT): [...] eye. Assessment & Plan (09/22/2019 3:29 PM OIL FIRE SPECIALIST): New cataract evaluation today Mature cataract OS [...] on admission with NSR with severely prolonged MD - as noted above, resuming low dose coreg - telemetry Assessment & Plan (06/29/2020 9:55 AM CDT): History of post-op AF - Not on AC on admission, ECG on admission with NSR with severely prolonged MD - as noted above, resuming low dose coreg - telemetry Assessment & Plan (06/28/2020 10:30 AM CDT): History of post-op AF - Not on AC on admission, ECG on admission with NSR with severely prolonged MD - Holding coreg for now while on dobutamine - telemetry Assessment & Plan (06/27/2020 1:26 PM CDT): History of post-op AF - Not on AC on admission, ECG on admission with NSR with severely prolonged MD - Holding coreg for now while on dobutamine - telemetry Assessment & Plan (06/26/2020 12:02 PM CDT): History of post-op AF - Not on AC on admission, ECG on admission with NSR with severely prolonged MD - Holding coreg for now while on dobutamine - telemetry Assessment & Plan (06/25/2020 2:28 PM CDT): History of post-op AF - Not on AC on admission, ECG on admission with NSR with severely prolonged MD - Holding coreg for now while on dobutamine - telemetry Assessment & Plan (06/24/2020 3:35 PM CDT): History of post-op AF - Not on AC on admission, ECG on admission with NSR with severely prolonged MD - Holding coreg for now while on dobutamine - telemetry Assessment & Plan (06/23/2020 9:22 AM CDT): History of post-op AF - Not on AC on admission, ECG on admission with NSR with severely prolonged MD - Holding coreg for now while on dobutamine - telemetry Assessment & Plan (06/22/2020 12:01 PM CDT): History of post-op AF - Not on AC on admission, ECG on admission with NSR with severely prolonged MD - Holding coreg for now while on dobutamine - telemetry Assessment & Plan (06/21/2020 10:44 AM CDT): History of post-op AF - Not on AC on admission, ECG on admission with NSR with severely prolonged MD - Holding coreg for now while on dobutamine - telemetry Assessment & Plan (06/20/2020 11:49 AM CDT): History of post-op AF - Not on AC on admission, ECG on admission with NSR with severely prolonged MD - Holding coreg for now while on [...] and treat Patient will be going to [facility] tomorrow. Assessment & Plan (06/29/2020 9:57 AM [...] Obesity 01/03/2015 Diabetes mellitus type II, uncontrolled ([facility] ) 08/18/2013 Overview (05/26/2020): May [...] QID Assessment & Plan (09/15/2020 10:36 AM OIL FIRE SPECIALIST): - Hgb A1c 8.5% 05/2020, 5.5% 09/2019 [...] as current doses - follow-up with his avionics system engineer at [facility] for long-term therapy decisions. Consider [...] plavix Assessment & Plan (09/14/2020 11:01 AM OIL FIRE SPECIALIST): - s/p CABG [address] Sae [...] Isordil Assessment & Plan (09/17/2020 6:52 AM OIL FIRE SPECIALIST): - VS Q4 hrs - Continue home Lasix, hydralazine, metoprolol, Isordil Assessment & Plan (06/28/2020 10:41 AM CDT): - Elevated blood pressure - continue hydralazine 100 mg tid, isosorbide 40 mg tid - Coreg held with recent MOTORBOAT MECHANIC HELPER, likely resume low dose tomorrow Assessment & Plan (06/27/2020 1:27 PM CDT): - Elevated blood pressure - continue hydralazine 100 mg tid, isosorbide 40 mg tid - Coreg held with recent MOTORBOAT MECHANIC HELPER, likely resume tomorrow Assessment & Plan (06/26/2020 12:05 PM CDT): -Elevated blood pressure - continue hydralazine 100 mg tid, isosorbide 40 mg tid -Coreg held while on MOTORBOAT MECHANIC HELPER Assessment & Plan (06/25/2020 2:31 PM CDT): -Elevated blood pressure - continue hydralazine 100 mg tid, isosorbide 40 mg tid -Coreg held while on MOTORBOAT MECHANIC HELPER Assessment & Plan (06/24/2020 3:58 PM CDT): -Elevated blood pressure - continue hydralazine 100 mg tid, isosorbide 40 mg tid -Coreg held while on MOTORBOAT MECHANIC HELPER Assessment & Plan (06/23/2020 10:00 AM CDT): Elevated blood pressure - continue hydralazine 100 mg tid, isosorbide 40 mg tid Off carvedilol while being on dobutamine Continue to monitor Assessment & Plan (05/31/2020 11:11 AM CDT): On home carvedilol, held due to 1st degree HB with prolonged MD interval, borderline HR (56-60) - Start amlodipine 5mg Assessment & Plan (05/30/2020 1:28 PM CDT): On home carvedilol, held due to 1st degree HB with prolonged MD interval, borderline HR (56-60) - Start amlodipine 5mg Assessment & Plan (05/29/2020 10:58 AM CDT): On home carvedilol, held due to 1st degree HB with prolonged MD interval, borderline HR (56-60) - Start amlodipine 5mg Assessment & Plan (05/26/2020 12:36 PM CDT): On home carvedilol, held due to 1st degree HB with prolonged MD interval, borderline HR (56-60) - Start amlodipine 5mg Assessment & Plan (04/09/2018 2:22 PM CDT): Blood pressure within target Resolved Problems Problem Noted Date Diagnosed Date Resolved Date Diabetic ulcer of right fifth toe 11/14/2020 12/01/2020 Overview (11/17/2020): Added automatically from request for surgery [id number] Foot ulcer 11/14/2020 12/01/2020 Overview (11/22/2020): Added automatically from request for surgery [id number] Ulcer of right foot with bon e involvement without evidence of necrosis 11/14/2020 12/01/2020 Overview (11/22/2020): Added automatically from request for surgery [id number] Wound of left leg 11/14/2020 12/01/2020 Overview (11/25/2020): Added automatically from request for surgery [id number] Encounters Date Type Department Care Team Description 01/28/2025 Telephone [facility] Cardiology [address] [place] [address] [place] [id number] Constantino Escobar MD from Last 3 Months Immunizations Immunization Administration Dates Next Due Influenza, Quadrivalent, Spl it, Preservative Free, Intramuscular 07/01/2020 Influenza, Unspecified 06/16/2017,06/02/2017 Surgical History Surgery Date Site/Laterality Comments MD AMPUTATION TOE INTERPHALANGEAL JOINT 09/02/2011 - 09/01/2012 [...] Sleep apnea CAD (coronary artery disease) Gangrene ([facility]) Apical mural thrombus CKD (chronic kidney disease) Heart failure (HCC) History of atrial fibrillation Ulcer of right foot with bon e involvement without evidence of necrosis ([facility]) 11/14/2020 Added automatically from [facility] for surgery [id number] Foot ulcer ([facility]) 11/14/2020 Added automatic ally from request for surgery [id number] Diabetic ulcer of right fift h toe ([facility]) 11/14/2020 Added automatically from [facility] for surgery [id number] Hypertension Hyperlipidemia Peripheral vascular disease Atrial fibrillation [...] Smoking Tobacco: Former Cigarettes 0.5 42 1 - 2019 Smokeless Tobacco: Never Comments:on and [...] often do you attend chur ch or gnosticism services? Never 03/12/2023 Do you belong to any clubs o r organizations such as hinduism groups, unions, fraternal or athletic groups, or [...] place to sleep or slept in a group home (including now)? No 03/12/2023 Personal Safety Answer Date Recorded Have you ever been in or are you currently in a harmful physical or emotional relationship or is someone making you feel afraid or unsafe? Denies 04/16/2023 Sex and Gender Information Value Date Recorded Sex Assigned at Not on file Legal Sex Male 4:17 AM OIL FIRE SPECIALIST Gender Identity Not on file Sexual [...] 04/28/2023, Additional history exists Influenza Vaccine (#1) 2025 0, 06/02/2020, 06/16/2017, Additional history exists Colon Cancer Screening-Colonoscopy 11/04/2031 11/03/2021 Hepatitis C Screening Completed 09/20/2020 Colon Cancer Screening-CT Colonography Discontinued 11/03/2021 Colon Cancer Screening-DNA Stool Discontinued 11/04/19 Colon Cancer Screening-FIT Discontinued 11/03/2021 Colon Cancer Screening-Sigmoidoscopy Discontinued 11/03/2021 Hepatitis B Screening Completed 04/16/2023 Medical Devices Implanted Type Area Cotton Program Technician Device Identifier Shelf Expiration Date Model / Serial / Lot [employer] [id number] - [id number] - [id number] Implanted:Qty: 1 on 02/24/2020 by Jeremias May MD at [facility] Advanced Medicine Lens Left: Eye [employer] 09/01/2022 [id number] / [id number] / [employer] [id number] Zilver Ptx 7mm 40mm 125cm Drug Elute Otw Delivery System - [id number] - [id number] Implanted:Qty: 1 on 09/16/2020 by Frandy Colunga MD at [facility] Stent Right: Femoral [employer] 12/02/2021 [id number] / [id number] / [id number] [employer] [id number] Vascade 6/7fr Bioabsorbable Vascular System Compression Collagen - [id number] Implanted:Qty: 1 on 11/24/2020 by Eliseo Akins MD at [facility] [employer] 08/04/2022 [id number] / / [id number] Procedures Procedure Name Priority Date/Time Associated Diagnosis Comments EGFR Routine 04/30/2023 3:09 AM CDT HEMOGLOBIN A1C STAT 02/15/2023 5:16 AM CDT LIPID PANEL STAT 02/15/2023 5:16 AM CDT COLONOSCOPY 11/03/2021 12:44 PM OIL FIRE SPECIALIST HEPATITIS C ANTIBODY Routine 09/20/2020 8:35 PM OIL FIRE SPECIALIST from Last 3 Months or Most Recently [...] MD LAB BLOOD ORDERABLES Final Result [facility] [address] [facility] Department [place] [address] * Hemoglobin A1c (02/15/2023 5:16 AM CDT) Hgb A1C 5.5 4.0 - 5.6 % LEANDRO PUENTES Estimated Average Glucose 111 mg/dL LEANDRO PUENTES Comment: The ADA recommends reporting an estimated [...] Arias MD LAB BLOOD ORDERABLES Final Result [facility] Department [place] [address] * (ABNORMAL) Lipid panel (02/15/2023 5:16 AM [...] on 2018. Triglycerides 81 <=149 mg/dL LEANDRO [facility] Comment: Interpretive Data Ages < [...] HDL 26(L) >=40 mg/dL LEANDRO [facility] Comment: Interpretive Data Ages < [...] on 2018. LDL, calculated 33 <=129 mg/dL [facility] Comment: Interpretive Data Ages < or = [...] revised on 2018. Non-HDL Cholesterol 49 mg/dL [facility] Comment: Interpretive Data Ages < or = [...] last revised on 2018. Chol/HDL ratio 3 [facility] Blood 02/15/2023 5:16 AM CDT 02/15/2023 5:57 AM CDT us Marcella Arias MD LAB BLOOD ORDERABLES Final Result [facility] Department [place] [address] * COLONOSCOPY (11/03/2021 12:44 PM OIL FIRE SPECIALIST) Anatomical Region Laterality Modality Other Narrative Procedure Note Brayden Lerma MD - 11/03/2021 12:44 PM CST [facility] Endoscopy [facility] Patient Name: Kobi Salter Procedure Date: 11/03/2021 12:44 PM Date of : 1965 Admit Type: Outpatient Age: 56 Gender: Male Note Status: Finalized Attending MD: Brayden Lerma M.D. Procedure Date: 11/03/2021 Procedure: Colonoscopy Indications: Chronic diarrhea Patient Profile: This is a 56 year old male. Diarrhea. Providers: Brayden Lerma M.D., Teresa Ross CRNA (Anesthesia Staff), Gini Izquierdo RN, Jose A Vuong,Despatch Clerk Referring MD: Jewels Lamas M.D. Medicines: Monitored [...] bowel preparation was evaluated using the BBPS ([place] Bowel Preparation Scale)with scores of: Right Colon [...] * Hepatitis C antibody (09/20/2020 8:35 PM OIL FIRE SPECIALIST) Hep C Ab Nonreactive Nonreactive LEANDRO CLARKE Comment:Antibodies to HCV no t detected. Does NOT exclude the possibility of recent exposure to HCV. Blood specimen (specimen) 09/20/2020 8:35 PM OIL FIRE SPECIALIST 09/20/2020 10:17 PM OIL FIRE SPECIALIST Jasson Teague NP LAB MICROBIOLOGY - GENE RAL ORDERABLES Final Result [facility] Department [place] [address] from Last 3 Months or Most Recently Relevant to Health Maintenance Additional Health Concerns Infection Onset Date Last Indicated MDR gram neg/ESBL 04/16/2023 04/16/2023 C. 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
--- OUTSIDE RECORDS SUMMARY | 2025-03-09 13:12 | XMS_ITS | Encounter Summary ---
Author Organization [facility] Healthcare Address [address] [place] [address] Care Team Providers Care Die Presser Name Role Phone Mariposa Smalls RN Unavailable Warner Sidhu MD PhD Unavailable + Jewels Lamas MD Primary Care Provider + [phone] Mariposa Smalls RN Unavailable Frandy Colunga MD Unavailable [phone] Alcon Quintanilla DPM Unavailable [phone] No, Physician Primary Care Provider [phone] Theodore Solis MD Unavailable [phone] Leah MARINO MD, Lyman Lansing Unavailable [phone] Encounter Details Date Type Department Care Team (Late st Contact Info) Description 12/08/2020 Documentation [facility] Case Management [address] [place] [address] Elena Monzon LCSW Social History Tobacco Use [...] declined 06/20/2020 How often do you attend sikh or gnosticist serv ices? 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 Spoke to ED team and there are no respiratory concerns at this time. 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 difficile 04/26/2023 04/26/2023 documented as of this encounter Care Teams Die Presser Relationship Specialty Start Date End Date Jewels Lamas MD [address] [address] PCP - General Family Practice 09/06/20 02/13/23 No, Physician PCP - General 02/14/23 Mariposa mSalls RN [address] [address] Freight Claim Investigator Cardiology 06/30/20 Warner Sidhu MD PhD [address] [address] Pathology Laboratory Technologist Cardiology 06/30/20 03/29/21 Mariposa Smalls RN [address] [address] Freight Claim Investigator Cardiology 06/30/20 Frandy Colunga MD [address] [facility] [address] [place] [address] Surgeon Vascular Surgery 02/28/21 Alcon Quintanilla DPM [address] [facility] [address] [place] [address] Surgeon Podiatry 02/28/21 Theodore Solis MD [address] [place] [address] Consulting Physician Internal Medicine 03/16/23 Raul Lynn IV, MD [facility] [address] Consulting Physician General Surgery 04/30/23 documented as of this encounter
--- OUTSIDE RECORDS SUMMARY | 2025-03-09 13:12 | XMS_ITS | Referral Summary ---
Author Organization [facility] [place] [address] Address [address] [place] [address] Care Team Providers Care Battery Checker Name Role Phone Frandy Colunga MD Unavailable [phone] Alcon QuintanillaM Unavailable [phone], Physician Primary Care Provider [phone] Theodore Solis MD Unavailable Leah MARINO MD, Raul Frankling Unavailable Encounters Date Type Department Care Team Description 01/28/2025 Telephone [facility] Cardiology [address] [facility] 8th [place] [address] [place] [address] Constantino Escobar MD from Last 3 Months Allergies Active Allergy Reactions Criticality Noted Date [...] signs of displacement. Discussed extensively with director on air and therapy. We will proceed with therapy [...] I reminded patient has sister and director on air at this appointment at [facility] at 1:[address] Bradley. We [...] presented with mental status changes from the halfway and found to have acute cholecystitis. Likely acute metabolic encephalopathy. Treat underlying cause. Mental status is improving. Closed left subtrochanteric femur fracture, sequ christiana 02/28/2023 Assessment & Plan (04/09/2023 7:04 PM CDT): Ortho fu pending, don aware Assessment & Plan (04/03/2023 5:26 PM CDT): Nonoperative management was recommended at [facility] earlier this summer. We will arrange outpatient follow up with Orthopedics but seems to be asymptomatic on that leg Assessment & Plan (03/26/2023 3:12 PM CDT): As per HPI, pain seems somewhat better controlled on current regimen. Recent x- rays did not show any new fractures. I reminded director on air the patient appears to still need appointment made with Orthopedics at [place]. Phone #[phone] Assessment & Plan (03/18/2023 4:48 PM CDT): Pain controlled on oxycodone and methocarbamol Dw pt and sister marilou who was present some ams sx could be due to pain meds Currently co pain but eventually want to try to wean these Has ortho and nsgy fu in apr, per CEE keen is aware Assessment & Plan (03/06/2023 4:15 PM CDT): Continue physical therapy as well as pain control with oxycodone. Discussed with director on air about getting follow up with Orthopedics in [...] seems to be slowly improving. Reminded director on air that patient has on April 23 appointment with Neurosurgery at [facility] at 1:30 p.m. along with [...] be clinically improving neurologically. Discussed with director on air about getting neurosurgery follow up in about 3 weeks. We will get her that information Assessment & Plan (02/28/2023 9:47 AM CDT): Clinically improving slowly Cont therapy Nsgy fu in 4 weeks Acute cholangitis 12/06/2022 Irritable bowel syndrome with diarrhea 2 Assessment & Plan (02/08/2022 10:18 AM CDT): Continue Bentyl and prn lomotil Assessment & Plan (12/06/2021 1:43 PM CDT): [...] 08/08/2021 Assessment & Plan (10/27/2021 3:09 PM EDGING MACHINE CATCHER): EGD/Colonoscopy scheduled for 11/03/21 Hold aspirin 10/29/21 Assessment & Plan (08/15/2021 1:41 PM EDGING MACHINE CATCHER): Patient was referred for colonoscopy and has appointment with GI. Abdominal pain has resolved. Assessment & Plan (08/08/2021 12:33 PM EDGING MACHINE CATCHER): Last colonoscopy 2012 (Unavailable). Recurrent rectal pain and diarrhea. No hemorrhoids. Check CBC. Encounter for surgical after care following surgery of circulatory system 06/16/2021 Chronic diarrhea 06/06/2021 Assessment & Plan (10/03/2021 9:10 AM EDGING MACHINE CATCHER): Pt was given Lomotil due to diarrhea and now c/o constipation. Resume questran and loperamide when constipation resolved. Assessment & Plan (07/28/2021 12:53 PM EDGING MACHINE CATCHER): Pt was given Lomotil due to diarrhea and now c/o constipation. Resume questran and loperamide when constipation resolved. Assessment & Plan (07/18/2021 1:25 PM EDGING MACHINE CATCHER): Continue cholestyramine and loperamide. Assessment & Plan [...] therapy Assessment & Plan (10/03/2021 9:09 AM EDGING MACHINE CATCHER): Patient's pain is controlled with [place] Patient needs AKA wound functional level for prosthesis for transfer and ambulation on level surfaces at a fixed candence Assessment & Plan (06/14/2021 2:19 PM CDT): Percocet change to [place] as patient could not tolerate Assessment & Plan (05/31/2021 1:38 PM CDT): Continue PT/OT. Recurrent major depressive disorder, in remissio n 05/31/2021 Assessment & Plan (03/18/2023 4:46 PM CDT): Cont remeron, stable but fluctuates due to recent hosp stay and illnesses Assessment & Plan (07/28/2021 12:53 PM EDGING MACHINE CATCHER): Continue Remeron and Zoloft. Assessment & Plan [...] tomorrow. Assessment & Plan (10/03/2021 9:11 AM EDGING MACHINE CATCHER): Continue Tradjenta and Glargine. Blood sugars have been stable between 70 and 150 Assessment & Plan (09/05/2021 12:27 PM EDGING MACHINE CATCHER): Continue Tradjenta and Glargine. Check A1c every 90 days. Assessment & Plan (08/01/2021 11:57 AM EDGING MACHINE CATCHER): Blood glucose 110 - 138 Continue Glargine and Tradjenta Assessment & Plan (07/18/2021 1:24 PM EDGING MACHINE CATCHER): Continue Tradjenta and glargine insulin. Assessment & Plan (06/29/2021 1:46 PM CDT): Stable on Tradjenta and glargine insulin. Assessment & Plan (06/06/2021 2:02 PM CDT): Continue Tradjenta and glargine Assessment & Plan (05/31/2021 1:46 PM CDT): Continue glargine and Tradjenta. Hypophosphatemia 05/30/2021 Assessment & Plan (05/30/2021 10:08 AM CDT): - Held sevelamer for low phosphorous level. - Given IV phos per renal 05/29 [facility] (current) use of antibiotics Assessment & Plan [...] ich Assessment & Plan (10/03/2021 9:09 AM EDGING MACHINE CATCHER): Not on anticoagulation. Continue Metoprolol, Aspirin. Assessment & Plan (08/01/2021 11:54 AM EDGING MACHINE CATCHER): Not on anticoagulation. Continue Metoprolol, Aspirin. Assessment & Plan (05/16/2021 9:05 AM CDT): - Not on anticoagulation - Continue metoprolol Assessment & Plan (02/22/2021 10:43 AM CDT): - Not on anticoagulation - Continue metoprolol Fall 02/22/2021 Assessment & Plan (02/22/2021 3:28 PM CDT): - Patient fell at facility 02/21 [facility], states he rolled out of bed and [...] (12/05/2020): Added automatically from request for surgery [id number] End-stage renal disease on hemodialysis 09/14/19 21 Assessment & Plan (04/09/2023 7:04 PM CDT): [...] CDT): Conts on hd at facility w [facility], tolerating it well today Assessment & Plan (03/18/2023 4:45 PM CDT): Continue hd at facility with usual lab protocols Assessment & Plan (03/06/2023 4:14 PM CDT): Continue with in-house dialysis. CMP was stable over the weekend Assessment & Plan (02/28/2023 9:46 AM CDT): Getting hd at facility w [facility] labs Assessment & Plan (02/08/2022 10:22 AM CDT): Continue Sevelamer. Right arm dialysis graft intact (positive thrill/bruit). Hemodialysis three days weekly. Assessment & Plan (12/06/2021 1:44 PM CDT): Continue weekly hemodialysis. Assessment & Plan (10/27/2021 3:10 PM EDGING MACHINE CATCHER): Continue hemodialysis weekly. Assessment & Plan (08/07/2021 10:27 AM EDGING MACHINE CATCHER): Currently on Sevelamer and Ferrous sulfate. Hemodialysis three days weekly. Assessment & Plan (07/14/2021 1:51 PM EDGING MACHINE CATCHER): Continue Sevelamer and Ferrous sulfate. Assessment & [...] schedule Assessment & Plan (09/21/2020 8:33 AM EDGING MACHINE CATCHER): - ESRD on dialysis as of August [...] Renvela. Assessment & Plan (09/15/2020 11:00 AM EDGING MACHINE CATCHER): - Related to increased needs, chronic illness/injury and wounds - Nutrition consulted - Consistent carb diet. Will allow double portions of meat. - Supplements ordered Foot ulcer due to secondary DM 09/13/2020 Assessment & Plan (09/21/2020 8:32 AM EDGING MACHINE CATCHER): Right foot wounds appeared about 1 month [...] Continue aspirin + Plavix daily Atherosclerosis of [place] river artery of right lower extremity 09/06/2020 Overview (09/06/2020): Added automatically from request for surgery [id number] Peripheral arterial disease ([facility]) 09/06/2020 Overview (09/06/2020): Added automatically from request for surgery [id number] Assessment & Plan (03/06/2023 4:14 PM CDT): Continue medical management with statin. Patient is status post bilateral amputations for this reason Assessment & Plan (10/03/2021 9:13 AM EDGING MACHINE CATCHER): Patient to continue aspirin Assessment & Plan [...] chair Assessment & Plan (09/18/2020 8:47 AM EDGING MACHINE CATCHER): - s/p left BKA 05/2020. Presents now [...] 06/23/2020 Assessment & Plan (09/05/2021 12:26 PM EDGING MACHINE CATCHER): Continue working with PT/OT. Follow up outpatient for prosthetic. Assessment & Plan (08/15/2021 1:43 PM EDGING MACHINE CATCHER): Continue PT/OT Continue outpatient follow up for prosthetic on 08/21/21 (2pm), 08/28/21 (11am), and 09/06/21 (11am). Assessment & Plan (08/08/2021 12:35 PM EDGING MACHINE CATCHER): Seen outpatient for prosthetic yesterday and has follow up again 08/21/21 (2pm), 08/28/21 (11am), and 09/06/21 (11am) Assessment & Plan (08/07/2021 10:29 AM EDGING MACHINE CATCHER): Denies phanthom limb pain. Pain controlled cyclobenzaprine, Acetaminophen, and Gabapentin. Assessment & Plan (08/01/2021 11:53 AM EDGING MACHINE CATCHER): Continue Aspirin and Gabapentin. Pain well controlled. Assessment & Plan (07/07/2021 12:45 PM CDT): Follow-up outpatient for prosthesis (sheet hanger) Continue gabapentin, acetaminophen, and physical and occupational therapy as tolerated. Assessment & Plan (06/29/2021 1:45 PM CDT): Patient measured for below-knee market analysis director is yesterday and will follow-up for fitting (sheet hanger). Incision well-healed. Continue PT/OT. Continue gabapentin and acetaminophen. Assessment & Plan (06/19/2021 1:55 PM CDT): Patient had follow-up with vascular surgeon. Sutures removed and patient recommended for residual limb market analysis director. Pain well controlled. Continue PT/OT Assessment & Plan (06/08/2021 3:02 PM CDT): Patient unable to tolerate oxycodone due to increased confusion. Discussed with MD and will discontinue oxycodone and changed to Rac[place] to help with postoperative pain. 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 - Will need rehab after this admission as has no family available to help him - working well with PT and OT Bed will be available at [facility] tomorrow Patient was not accepted at [facility] rehab per social service agency director Assessment & Plan (06/29/2020 9:55 AM CDT): -History of left guillotine bka /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 05/25 - Will need [...] (06/27/2020 1:25 PM CDT): -History of left guilnehemiah bka 9/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 9/23 - [...] 05/19/2020 Assessment & Plan (07/14/2021 1:52 PM EDGING MACHINE CATCHER): Continue Lasix 40 mg daily Assessment & Plan (09/15/2020 10:36 AM EDGING MACHINE CATCHER): - Echo from 05/2020 LVEF 34% otherwise [...] degree HB on tele w/ very prolonged KS interval and resting bradycardia to mid 50-60s [...] degree HB on tele w/ very prolonged KS interval and resting bradycardia to mid 50-60s [...] degree HB on tele w/ very prolonged KS interval and resting bradycardia to mid 50s, [...] degree HB on tele w/ very prolonged KS interval and resting bradycardia to mid 50s, [...] degree HB on tele w/ very prolonged KS interval, consider restarting - on Entresto 49-51 [...] degree HB on tele w/ very prolonged KS interval, consider restarting - on Entresto 49-51 [...] degree HB on tele w/ very prolonged KS interval. Restart if able. - on Entresto [...] degree HB on tele w/ very prolonged KS interval. Restart if able. - on Entresto [...] Plan (05/19/2020 9:20 AM CDT): - BNP 08492 - Restart home carvedilol - Diuresis 2017 [...] (05/18/2020): Added automatically from request for surgery [id number] Assessment & Plan (06/01/2020 10:34 AM CDT): [...] (05/19/2020): Added automatically from request for surgery [id number] Assessment & Plan (02/28/2023 9:46 AM CDT): [...] eye. Assessment & Plan (09/22/2019 3:29 PM EDGING MACHINE CATCHER): New cataract evaluation today Mature cataract OS [...] on admission with NSR with severely prolonged KS - as noted above, resuming low dose coreg - telemetry Assessment & Plan (06/29/2020 9:55 AM CDT): History of post-op AF - Not on AC on admission, ECG on admission with NSR with severely prolonged KS - as noted above, resuming low dose coreg - telemetry Assessment & Plan (06/28/2020 10:30 AM CDT): History of post-op AF - Not on AC on admission, ECG on admission with NSR with severely prolonged KS - Holding coreg for now while on dobutamine - telemetry Assessment & Plan (06/27/2020 1:26 PM CDT): History of post-op AF - Not on AC on admission, ECG on admission with NSR with severely prolonged KS - Holding coreg for now while on dobutamine - telemetry Assessment & Plan (06/26/2020 12:02 PM CDT): History of post-op AF - Not on AC on admission, ECG on admission with NSR with severely prolonged KS - Holding coreg for now while on dobutamine - telemetry Assessment & Plan (06/25/2020 2:28 PM CDT): History of post-op AF - Not on AC on admission, ECG on admission with NSR with severely prolonged KS - Holding coreg for now while on dobutamine - telemetry Assessment & Plan (06/24/2020 3:35 PM CDT): History of post-op AF - Not on AC on admission, ECG on admission with NSR with severely prolonged KS - Holding coreg for now while on dobutamine - telemetry Assessment & Plan (06/23/2020 9:22 AM CDT): History of post-op AF - Not on AC on admission, ECG on admission with NSR with severely prolonged KS - Holding coreg for now while on dobutamine - telemetry Assessment & Plan (06/22/2020 12:01 PM CDT): History of post-op AF - Not on AC on admission, ECG on admission with NSR with severely prolonged KS - Holding coreg for now while on dobutamine - telemetry Assessment & Plan (06/21/2020 10:44 AM CDT): History of post-op AF - Not on AC on admission, ECG on admission with NSR with severely prolonged KS - Holding coreg for now while on dobutamine - telemetry Assessment & Plan (06/20/2020 11:49 AM CDT): History of post-op AF - Not on AC on admission, ECG on admission with NSR with severely prolonged KS - Holding coreg for now while on [...] - Pt remains under wound care at [facility]. - Discussed with patient the rational for treatment, culture results, risk of recurrent infection, signs/symptoms of recurrent infection, and to contact ID clinic with any questions or concerns. Assessment & Plan (06/30/2020 10:47 AM CDT): S/p L BKA - Continue daily wound care - PT/OT eval and treat Patient will be going to [facility] tomorrow. Assessment & Plan (06/29/2020 9:57 AM [...] Obesity 01/03/2015 Diabetes mellitus type II, uncontrolled ([facility] ) 08/18/2013 Overview (05/26/2020): May 2020: [...] QID Assessment & Plan (09/15/2020 10:36 AM EDGING MACHINE CATCHER): - Hgb A1c 8.5% 05/2020, 5.5% 09/2019 [...] as current doses - follow-up with his heel builder at [facility] for long-term therapy decisions. Consider GLP-1 agonist [...] plavix Assessment & Plan (09/14/2020 11:01 AM EDGING MACHINE CATCHER): - s/p CABG [address] Sae [...] Isordil Assessment & Plan (09/17/2020 6:52 AM EDGING MACHINE CATCHER): - VS Q4 hrs - Continue home Lasix, hydralazine, metoprolol, Isordil Assessment & Plan (06/28/2020 10:41 AM CDT): - Elevated blood pressure - continue hydralazine 100 mg tid, isosorbide 40 mg tid - Coreg held with recent GROCERY SACKER, likely resume low dose tomorrow Assessment & Plan (06/27/2020 1:27 PM CDT): - Elevated blood pressure - continue hydralazine 100 mg tid, isosorbide 40 mg tid - Coreg held with recent GROCERY SACKER, likely resume tomorrow Assessment & Plan (06/26/2020 12:05 PM CDT): -Elevated blood pressure - continue hydralazine 100 mg tid, isosorbide 40 mg tid -Coreg held while on GROCERY SACKER Assessment & Plan (06/25/2020 2:31 PM CDT): -Elevated blood pressure - continue hydralazine 100 mg tid, isosorbide 40 mg tid -Coreg held while on GROCERY SACKER Assessment & Plan (06/24/2020 3:58 PM CDT): -Elevated blood pressure - continue hydralazine 100 mg tid, isosorbide 40 mg tid -Coreg held while on GROCERY SACKER Assessment & Plan (06/23/2020 10:00 AM CDT): Elevated blood pressure - continue hydralazine 100 mg tid, isosorbide 40 mg tid Off carvedilol while being on dobutamine Continue to monitor Assessment & Plan (05/31/2020 11:11 AM CDT): On home carvedilol, held due to 1st degree HB with prolonged KS interval, borderline HR (56-60) - Start amlodipine 5mg Assessment & Plan (05/30/2020 1:28 PM CDT): On home carvedilol, held due to 1st degree HB with prolonged KS interval, borderline HR (56-60) - Start amlodipine 5mg Assessment & Plan (05/29/2020 10:58 AM CDT): On home carvedilol, held due to 1st degree HB with prolonged KS interval, borderline HR (56-60) - Start amlodipine 5mg Assessment & Plan (05/26/2020 12:36 PM CDT): On home carvedilol, held due to 1st degree HB with prolonged KS interval, borderline HR (56-60) - Start amlodipine 5mg Assessment & Plan (04/09/2018 2:22 PM CDT): Blood pressure within target Resolved Problems Problem Noted Date Diagnosed Date Resolved Date Diabetic ulcer of right fifth toe 11/14/2020 12/01/2020 Overview (11/17/2020): Added automatically from request for surgery [id number] Foot ulcer 11/14/2020 12/01/2020 Overview (11/22/2020): Added automatically from request for surgery [id number] Ulcer of right foot with bon e involvement without evidence of necrosis 11/14/2020 12/01/2020 Overview (11/22/2020): Added automatically from request for surgery [id number] Wound of left leg 11/14/2020 12/01/2020 Overview (11/25/2020): Added automatically from request for surgery [id number] Immunizations Immunization Administration Dates Next Due Influenza, [...] 03/12/2023 How often do you attend chur or denominational services? Never 03/12/2023 Do you belong to any clubs o r organizations such as roman catholic groups, unions, fraternal or athletic groups, [...] place to sleep or slept in a long-term (including now)? No 03/12/2023 Personal Safety Answer Date Recorded Have you ever been in or are you currently in a harmful physical or emotional relationship or is someone making you feel afraid or unsafe? Denies 04/16/2023 Sex and Gender Information Value Date Recorded Sex Assigned at Not on file Legal Sex Male 4:17 AM EDGING MACHINE CATCHER Gender Identity Not on file Sexual Orientation [...] on file Medical Devices Implanted Type Area Fire Engine Operator Device Identifier Shelf Expiration Date Model / Serial / Lot [employer] [id number] - [id number] - [id number] Implanted:Qty: 1 on 02/24/2020 by Jeremias May MD at [facility] Advanced Medicine Lens Left: Eye [employer] 09/01/2022 [id number] / [id number] / [employer] [id number] Zilver Ptx 7mm 40mm 125cm Drug Elute Otw Delivery System - [id number] - [id number] Implanted:Qty: 1 on 09/16/2020 by Frandy Colunga MD at [facility] Stent Right: [employer] ([place]) 12/02/2021 [id number] / [id number] / [id number] Shipzi [id number] Vascade 6/7fr Bioabsorbable Vascular System Compression Collagen - [id number] Implanted:Qty: 1 on 11/24/2020 by Eliseo Akins MD at [facility] [employer] 08/04/2022 [id number] / / [id number] Procedures Procedure Name Priority Date/Time Associated Diagnosis Comments EGFR Routine 04/30/2023 3:09 AM CDT HEMOGLOBIN A1C STAT 02/15/2023 5:16 AM CDT LIPID PANEL STAT 02/15/2023 5:16 AM CDT COLONOSCOPY 11/03/2021 12:44 PM EDGING MACHINE CATCHER HEPATITIS C ANTIBODY Routine 09/20/2020 8:35 PM EDGING MACHINE CATCHER from Last 3 Months or Most Recently [...] Little MD LAB BLOOD ORDERABLES Final Result [facility] [address] [facility] Department [place] [address] * Hemoglobin A1c (02/15/2023 5:16 AM CDT) Hgb A1C 5.5 4.0 - 5.6 % [facility] Estimated Average Glucose 111 mg/dL [facility] Comment: The ADA recommends reporting [...] Arias MD LAB BLOOD ORDERABLES Final Result [facility] [address] [facility] Department [place] [address] * (ABNORMAL) Lipid panel (02/15/2023 5:16 AM CDT) Cholesterol 75 30 - 199 mg/dL [facility] Comment: Interpretive Data Ages < [...] on 2018. Triglycerides 81 <=149 mg/dL [facility] Comment: Interpretive Data Ages < [...] revised on 2018. HDL 26(L) >=40 mg/dL [facility] Comment: Interpretive Data Ages < [...] 2018. LDL, calculated 33 <=129 mg/dL [facility] Comment: Interpretive Data Ages < [...] revised on 2018. Non-HDL Cholesterol 49 mg/dL [facility] Comment: Interpretive Data Ages < [...] revised on 2018. Chol/HDL ratio 3 [facility] Blood 02/15/2023 5:16 AM CDT 02/15/2023 5:57 AM CDT us Marcella Arias MD LAB BLOOD ORDERABLES Final Result [facility] [address] [facility] Department [place] [address] * COLONOSCOPY (11/03/2021 12:44 PM EDGING MACHINE CATCHER) Anatomical Region Laterality Modality Other Narrative Procedure Note Brayden Lerma MD - 11/03/2021 12:44 PM CST [facility] Patient Name: Kobi Salter Procedure Date: 11/03/2021 12:44 PM Date of : 1965 Admit Type: Outpatient Age: 56 Gender: Male Note Status: Finalized Attending MD: Brayden Lerma M.D. Procedure Date: 11/03/2021 Procedure: Colonoscopy Indications: Chronic diarrhea Patient Profile: This is a 56 year old male. Diarrhea. Providers: Brayden Lerma M.D., Teresa Ross, CLOUD ADMINISTRATOR (Anesthesia Staff), Gini Izquierdo RN, Jose A Vuong,H[employer]ler [employer] Referring MD: Jewels Lamas M.D. Medicines: Monitored [...] bowel preparation was evaluated using the BBPS ([place] Bowel Preparation Scale)with scores of: Right Colon [...] * Hepatitis C antibody (09/20/2020 8:35 PM EDGING MACHINE CATCHER) Hep C Ab Nonreactive Nonreactive [facility] Comment:Antibodies to HCV no t detected. Does NOT exclude the possibility of recent exposure to HCV. Blood specimen (specimen) 09/20/2020 8:35 PM EDGING MACHINE CATCHER 09/20/2020 10:17 PM EDGING MACHINE CATCHER Jasson Teague NP LAB MICROBIOLOGY - GENE RAL ORDERABLES Final Result [facility] Department [place] [address] from Last 3 Months or Most Recently Relevant to Health Maintenance Additional Health Concerns Infection Onset Date Last Indicated MDR gram neg/ESBL 04/16/2023 04/16/2023 C. 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
[2025-03-09 13:40] LABS: NT Pro B Type Natriuretic Pept > 30000 pg/mL (19.9-100)
--- NOTE | 2025-03-09 14:25 | ED.SOB ---
HPI - SOB/Dyspnea General Chief Complaint: Shortness of Breath/Dyspnea <Isi Cuadra PA-C - Last Filed: 03/11/25 17:20> Stated Complaint: dyspnea <Isi Cuadra PA-C - Last Filed: 03/11/25 17:20> Time Seen by Provider: 03/09/25 13:00 <Isi Cuadra PA-C - Last Filed: 03/11/25 17:20> Source: patient <Isi Cuadra PA-C - Last Filed: 03/11/25 17:20> Mode of arrival: EMS <Isi Cuadra PA-C - Last Filed: 03/11/25 17:20> Limitations: other (poor historian) <Isi Cuadra PA-C - Last Filed: 03/11/25 17:20> History of Present Illness HPI Narrative: This is a 59-year-old male that presents to the emergency department for shortness of breath. Presents from facility, reportedly he has been refusing dialysis for the last week. Hypoxic in the 80s, placed on oxygen via nasal cannula. Sent to the ER for further evaluation. <Isi Cuadra PA-C - Last Filed: 03/11/25 17:20> Related Data Home Medications: Home Medications ?Medication ?Instructions ?Recorded ?Confirmed ?Last Taken ?Type ferrous sulfate 325 mg (65 mg 325 mg PO DAILY 06/01/20 03/10/25 03/02/24 History iron) tablet multivitamin 1 tablet PO DAILY 06/01/20 03/10/25 03/02/24 History nitroglycerin 0.4 mg sublingual 0.4 mg sublingual Q5-15M PRN Chest 06/01/20 03/10/25 Unknown History tablet Pain omega-3 fatty acids-fish oil 360 1 cap PO DAILY 06/01/20 03/10/25 03/02/24 History mg-1,200 mg capsule atorvastatin 40 mg tablet (Lipitor) 40 mg PO HS 12/23/20 03/10/25 03/02/24 History folic acid 1 mg tablet 1 mg PO DAILY 12/23/20 03/10/25 03/02/24 History gabapentin 100 mg tablet 200 mg PO HS 12/23/20 03/10/25 03/02/24 History sevelamer carbonate 800 mg tablet 800 mg PO DAILY@1700 12/23/20 03/10/25 03/02/24 History tamsulosin 0.4 mg capsule (Flomax) 0.4 mg PO DAILY 12/23/20 03/10/25 03/02/24 18:00 History linagliptin 5 mg tablet (Tradjenta) 5 mg PO DAILY 01/13/23 03/10/25 1 Day Ago History ~01/12/23 mirtazapine 15 mg tablet 15 mg PO HS 01/13/23 03/10/25 03/02/24 History sertraline 50 mg tablet 25 mg PO HS 01/13/23 03/10/25 03/02/24 History aspirin 81 mg tablet 81 mg PO DAILY 09/17/23 03/10/25 03/02/24 History meclizine 25 mg tablet 25 mg PO Q8H PRN Dizziness 09/17/23 03/10/25 Unknown History midodrine 10 mg tablet 10 mg PO BID 09/17/23 03/10/25 03/02/24 14:00 History acetaminophen 325 mg tablet 650 mg PO Q6H PRN Pain (Scale 10/29/23 03/10/25 Unknown History (Tylenol) Score 1-3) naloxone 4 mg/actuation nasal spray 1 spray intranasal Q3M PRN Opioid 10/29/23 03/10/25 Unknown History Overdose sennosides 8.6 mg-docusate sodium 1 tablet PO BID PRN Constipation 10/29/23 03/10/25 Unknown History 50 mg tablet (Senna Plus) guaifenesin 100 mg/5 mL oral syrup 600 mg PO Q8H PRN Cough 03/03/24 03/10/25 Unknown History lanolin alcohols-mineral 1 applic topical QPM 03/03/24 03/10/25 03/02/24 History oil-w.petrolatum-ceresin topical cream (Eucerin topical cream) tizanidine 2 mg tablet 2 mg PO TID 10/19/24 03/10/25 Unknown History ascorbic acid (vitamin C) 500 mg 500 mg PO BID 03/10/25 03/10/25 Unknown History tablet famotidine 20 mg tablet 20 mg PO BID 03/10/25 03/10/25 Unknown History mirtazapine 7.5 mg tablet 7.5 mg PO HS 03/10/25 03/10/25 Unknown History nut.tx.imp.renal fxn,lac-reduc 1 ea PO HS 03/10/25 03/10/25 Unknown History 0.08 gram-1.8 kcal/mL oral liquid polyethylene glycol 3350 17 gram 17 g PO DAILY PRN constipation 03/10/25 03/10/25 Unknown History oral powder packet tizanidine 2 mg tablet 2 mg PO BID 03/10/25 03/10/25 Unknown History vitamin B complex-vitamin C-folic 1 tablet PO DAILY 03/10/25 03/10/25 Unknown History acid 0.8 mg tablet (Nephro-[place]) zinc sulfate 220 mg capsule 220 mg PO DAILY 03/10/25 03/10/25 Unknown History <Isi Cuadra PA-C - Last Filed: 03/11/25 17:20> Allergies/Adverse Reactions: Allergies Allergy/AdvReac Type Severity Reaction Status Date / Time Penicillins Allergy Unknown Unknown Verified 12/21/24 09:37 bee venom protein (honey bee) Allergy Swelling Verified 12/21/24 09:37 <Isi Cuadra PA-C - Last Filed: 03/11/25 17:20> Review of Systems Review of Systems: All systems reviewed & are unremarkable except as noted in HPI and below <Isi Cuadra PA-C - Last Filed: 03/11/25 17:20> [facility] Past Medical History Medical History: Medical History (Updated 03/11/25 @ 17:15 by Isi Cuadra PA-C) Iron deficiency anemia MRSA infection Clostridium difficile diarrhea Paroxysmal atrial fibrillation Transient atrial fibrillation following bypass surgery. Coronary artery disease History of multiple stents and 4 vessel bypass. Type 2 diabetes mellitus Hyperlipidemia End-stage renal disease on hemodialysis Combined systolic and diastolic congestive heart failure Anxiety and depression Obstructive sleep apnea does not use a CPAP Anemia of chronic disease Diabetic nephropathy Diabetic peripheral neuropathy Arthritis <Isi Cuadra PA-C - Last Filed: 03/11/25 17:20> Surgical History Surgical History: Surgical History History of right below knee amputation History of five vessel coronary artery bypass (2018) [facility] [address] History of cataract extraction with lens replacement History of coronary artery stent placement History of cardiac catheterization History of left below knee amputation History of amputation of toe left 5th toe 2013 small toe on the right amputated <Isi Cuadra PA-C - Last Filed: 03/11/25 17:20> Family History Family History: Family History Sibling Patient's sister is Diabetes mellitus Sister Acute myocardial infarction Three brothers and 2 sisters History of blood clots Sister Abdominal aortic aneurysm Sister Dementia Brother COPD (chronic obstructive pulmonary disease) Brother Father Acute myocardial infarction, Onset Age: 65 Mother History of blood clots Hypertension, Onset Age: 80 <Isi Cuadra PA-C - Last Filed: 03/11/25 17:20> Social History Social History: Social History (Updated 03/10/25 @ 08:12 by Bianka Hall DO) Social History: Surrogate medical decision maker: Melodie Roca (niece) or Alejandra Murray (sister). Code status: DNR/DNI Smoking packs per day: 0.25 Smoking cigarettes per day: 5.0 Years smoked: 30 Smoking pack-years: 7.50 Smoking status: Former smoker Alcohol intake: unknown Drinks per week: 2 Alcohol use details: Social alcohol use. Substance use: unknown Substance use type: marijuana Last use: 2019 Do You Feel Safe in your Home?: Yes Lack of Transportation: No Lack of Food: Never True Current Housing: I Have Housing Concerned About Future Housing: No Difficulty Paying Gas/Electric Bills: No Difficulty Paying for Meds: No Currently Unemployed: No Education: Don't Know Difficulty w/ Childcare or Family Care: No Additional living arrangements comments: [facility]. Additional occupation/education comments: Disabled. Spiritual care concerns: No <Isi Cuadra PA-C - Last Filed: 03/11/25 17:20> Exam Narrative: GENERAL: Chronically ill-appearing, well-nourished, and in no acute distress. HEAD: Normocephalic, atraumatic. EYES: EOMI. ENT: Nares clear, no rhinorrhea or epistaxis. Mucous membranes moist. Oropharynx without tonsillar hypertrophy exudate or other lesions. NECK: Supple. No adenopathy or masses. CHEST: No respiratory distress. Rales in the right lower lobe. No wheezes or rhonchi HEART: Regular rate and rhythm. No murmur heard. Normal peripheral pulses. ABDOMEN: Soft, nontender, nondistended, normal active bowel sounds. EXTREMITIES: Normal range of motion. No edema. SKIN: Warm, dry, no rash. NEURO: No focal deficits. Alert and oriented x2. PSYCH: Normal mood and affect <Isi Cuadra PA-C - Last Filed: 03/11/25 17:20> Course CRIMINAL RESEARCH SPECIALIST/PA Physician Supervision For this patient encounter, I reviewed the CRIMINAL RESEARCH SPECIALIST or PA documentation, treatment plan, and medical decision making and had [id number] time with this patient. I performed all aspects of the MDM as documented. <Nelly Olivo MD - Last Filed: 03/09/25 22:02> Consultations Consultation #1: Spoke with Dr. Bay who will consult so patient will receive his dialysis tomorrow <Isi Cuadra PA-C - Last Filed: 03/11/25 17:20> Vital Signs Vital signs: Vital Signs Temperature 98.6 F 03/09/25 11:42 Pulse Rate 71 03/09/25 11:42 Respiratory Rate 21 H 03/09/25 11:42 Blood Pressure 125/56 L 03/09/25 11:42 Pulse Oximetry 89 L 03/09/25 11:42 Oxygen Delivery Room Air 03/09/25 11:42 Temperature 99.9 F H 03/11/25 16:00 Pulse Rate 57 L 03/11/25 16:00 Respiratory Rate 18 03/11/25 16:00 Blood Pressure 136/42 L 03/11/25 16:00 Pulse Oximetry 98 03/11/25 17:02 Oxygen Delivery Nasal Cannula 03/11/25 17:02 Oxygen Flow Rate 3 03/11/25 17:02 Fraction of Inspired Oxygen 32 03/11/25 16:00 <Isi Cuadra PA-C - Last Filed: 03/11/25 17:20> Vital Signs Temperature 98.6 F 03/09/25 11:42 Pulse Rate 71 03/09/25 11:42 Respiratory Rate 21 H 03/09/25 11:42 Blood Pressure 125/56 L 03/09/25 11:42 Pulse Oximetry 89 L 03/09/25 11:42 Oxygen Delivery Room Air 03/09/25 11:42 Temperature 99.9 F H 03/11/25 16:00 Pulse Rate 57 L 03/11/25 16:00 Respiratory Rate 18 03/11/25 16:00 Blood Pressure 136/42 L 03/11/25 16:00 Pulse Oximetry 98 03/11/25 17:02 Oxygen Delivery Nasal Cannula 03/11/25 17:02 Oxygen Flow Rate 3 03/11/25 17:02 Fraction of Inspired Oxygen 32 03/11/25 16:00 <Nelly Olivo MD - Last Filed: 03/09/25 22:02> MDM - SOB/Dyspnea MDM Narrative Medical decision making narrative: Patient presents the emergency department for hypoxia from him facility. Reportedly has been refusing dialysis the last week. Patient was placed on oxygen via nasal cannula prior to arrival and maintaining normal oxygen saturations, in no acute distress. He is afebrile and nontoxic appearing. Cbc without leukocytosis. Metabolic panel with mild hyperkalemia, this was treated. Chest x-ray showing pneumonia and right pleural effusion. Blood cultures obtained, patient started on IV antibiotics. Patient had a episode of hemoptysis while at was in the room. D-dimer was obtained due to hypoxia and hemoptysis. This was elevated. Will obtain a CTA of the chest. I did speak to Dr. Bay to ensure patient will receive his dialysis tomorrow. Between the fluids he got to correct his potassium and IV antibiotics, patient did start to become fluid overloaded. I have started him on BiPAP. Nothing overly concerning on his ABG. Care taken over by Dr. Olivo at shift change Patient was signed out to me by CASIS Snowden pending CTA PE protocol. CT was obtained and blood interpreted by me revealing: IMPRESSION: No pulmonary embolus. No thoracic aortic dissection. Significant enlargement of the main pulmonary artery, consistent with pulmonary hypertension. Redemonstration of cardiomegaly. Extensive mediastinal and supraclavicular lymphadenopathy, unchanged from prior. Bibasilar consolidation with small bilateral pleural effusions. Patient is currently on BiPAP, satting 98% on 40% FiO2. Case was discussed with the on-call hospitalist Dr. Hall @ [phone] regarding hospitalization for hemodialysis and she accepted. Dr. Bay was notified regarding the consult. Critical care time of 47 minutes, exclusive of separately performed procedures, necessary for treating or preventing eminent or life-threatening deterioration of patient's condition of hypoxic respiratory failure requiring continuous BiPAP, focused on patient care provided personally by me and time spent during initial evaluation, physical examination, ordering and performing treatments and interventions, ordering and reviewing laboratory studies, ordering and reviewing radiographic studies, re-evaluation of the patient's condition, evaluation of the patient's response to treatment, and discussion of patient case with multiple consultants. <Isi Cuadra PA-C - Last Filed: 03/11/25 17:20> Patient was signed out to me by CASSI Snowden pending CTA PE protocol. CT was obtained and blood interpreted by me revealing: IMPRESSION: No pulmonary embolus. No thoracic aortic dissection. Significant enlargement of the main pulmonary artery, consistent with pulmonary hypertension. Redemonstration of cardiomegaly. Extensive mediastinal and supraclavicular lymphadenopathy, unchanged from prior. Bibasilar consolidation with small bilateral pleural effusions. Patient is currently on BiPAP, satting 98% on 40% FiO2. Case was discussed with the on-call hospitalist Dr. Hall @ [phone] regarding hospitalization for hemodialysis and she accepted. Dr. Bay was notified regarding the consult. Critical care time of 47 minutes, exclusive of separately performed procedures, necessary for treating or preventing eminent or life-threatening deterioration of patient's condition of hypoxic respiratory failure requiring continuous BiPAP, focused on patient care provided personally by me and time spent during initial evaluation, physical examination, ordering and performing treatments and interventions, ordering and reviewing laboratory studies, ordering and reviewing radiographic studies, re-evaluation of the patient's condition, evaluation of the patient's response to treatment, and discussion of patient case with multiple consultants. <Nelly Olivo MD - Last Filed: 03/09/25 22:02> Lab Data Attestation: I reviewed the patient's lab results. <Isi Cuadra PA-C - Last Filed: 03/11/25 17:20> Result diagrams: 03/11/25 04:11 03/11/25 04:11 <Isi Cuadra PA-C - Last Filed: 03/11/25 17:20> Labs: Lab Results 03/09/25 03/09/25 03/09/25 Range/Units 11:56 12:08 14:54 WBC 10.1 H (4.5-10.0) K/mm3 RBC 2.74 L (4.6-6.20) M/mm3 Hgb 8.8 L (14.0-18.0) g/dL Hct 28.8 L (42.0-52.0) % MCV 105.1 H (80-100) fl MCH 32.1 (26-34) pg MCHC 30.6 L (32-36) g/dl RDW 17.2 H (11.5-14.5) % Plt Count 57 L (150-375) k/mm3 MPV 12.1 H (7.4-10.4) fl Immature Gran % (Auto) 0.7 H (0-0.5) % Neut % (Auto) 87.3 H (45.5-73.1) % Lymph % (Auto) 3.6 L (18.3-44.2) % [place] % (Auto) 8.1 (2.6-8.5) % Eos % (Auto) 0.0 (0-4.4) % Baso % (Auto) 0.3 (0.2-1.2) % Lymph # (Auto) 0.36 L (0.9-3.2) K/mm3 [place] # (Auto) 0.8 H (0.1-0.6) K/mm3 Eos # (Auto) 0.0 (0-0.3) K/mm3 Baso # (Auto) 0.0 (0.0-0.1) K/mm3 Abs Immat Gran (auto) 0.07 H (0.00-0.031) K/mm3 Absolute Neuts (auto) 8.8 H (1.3-6.7) K/mm3 Absolute Nucleated RBC 0.000 (0.0-0.012) K/mm3 Band Neutrophils % Not Reportable Nucleated RBC % 0.0 (0.0-0.2) % Platelet Estimate Decreased (Adequate) % Immature Plt Fraction 5.5 (0.9-11.2) % Macrocytosis 1+ (NORMAL) Schistocytes None seen PT (11.1-14.7) Seconds INR APTT (22.3-36.8) Seconds D-Dimer (<0.48) ug/mL Methemoglobin (0-1.5) %THb Sodium 140 (137-145) mmol/L Potassium 5.5 H (3.4-5.0) mmol/L Chloride 101 (98-107) mmol/L Carbon Dioxide 25 (22-30) mmol/L Anion Gap 14 H (4-12) mmol/L BUN 79 H D (9-20) mg/dL Creatinine 9.06 H (0.7-1.3) mg/dL Estim Creat Clear Calc 9 ml/min Estimated GFR 6 L (59 - ) Glucose 150 H (65-110) mg/dL POC Capillary Glucose 171 H 140 H (65-105) mg/dl Calcium 8.6 (8.4-10.2) mg/dL Total Bilirubin 0.8 (0.2-1.3) mg/dL AST 23 (17-59) U/L ALT 19 (6-50) U/L Alkaline Phosphatase 140 H (38-126) U/L NT-Pro-B Natriuret Pep > 04079 H (19.9-100) pg/mL Total Protein 7.1 (6.3-8.2) g/dL Albumin 3.2 L (3.5-5.1) g/dL 03/09/25 03/09/25 03/09/25 Range/Units 16:25 16:26 17:10 WBC (4.5-10.0) K/mm3 RBC (4.6-6.20) M/mm3 Hgb (14.0-18.0) g/dL Hct (42.0-52.0) % MCV (80-100) fl MCH (26-34) pg MCHC (32-36) g/dl RDW (11.5-14.5) % Plt Count (150-375) k/mm3 MPV (7.4-10.4) fl Immature Gran % (Auto) (0-0.5) % Neut % (Auto) (45.5-73.1) % Lymph % (Auto) (18.3-44.2) % [place] % (Auto) (2.6-8.5) % Eos % (Auto) (0-4.4) % Baso % (Auto) (0.2-1.2) % Lymph # (Auto) (0.9-3.2) K/mm3 [place] # (Auto) (0.1-0.6) K/mm3 Eos # (Auto) (0-0.3) K/mm3 Baso # (Auto) (0.0-0.1) K/mm3 Abs Immat Gran (auto) (0.00-0.031) K/mm3 Absolute Neuts (auto) (1.3-6.7) K/mm3 Absolute Nucleated RBC (0.0-0.012) K/mm3 Band Neutrophils % Nucleated RBC % (0.0-0.2) % Platelet Estimate (Adequate) % Immature Plt Fraction (0.9-11.2) % Macrocytosis (NORMAL) Schistocytes PT 26.8 H (11.1-14.7) Seconds INR 2.6 APTT 44.5 H (22.3-36.8) Seconds D-Dimer 1.92 H (<0.48) ug/mL Methemoglobin (0-1.5) %THb Sodium 141 (137-145) mmol/L Potassium 5.0 (3.4-5.0) mmol/L Chloride 102 (98-107) mmol/L Carbon Dioxide 27 (22-30) mmol/L Anion Gap 12 (4-12) mmol/L BUN 80 H (9-20) mg/dL Creatinine 8.71 H (0.7-1.3) mg/dL Estim Creat Clear Calc 9 ml/min Estimated GFR 6 L (59 - ) Glucose 100 (65-110) mg/dL POC Capillary Glucose 110 H (65-105) mg/dl Calcium 8.6 (8.4-10.2) mg/dL Total Bilirubin (0.2-1.3) mg/dL AST (17-59) U/L ALT (6-50) U/L Alkaline Phosphatase (38-126) U/L NT-Pro-B Natriuret Pep (19.9-100) pg/mL Total Protein (6.3-8.2) g/dL Albumin (3.5-5.1) g/dL 03/09/25 Range/Units 18:40 WBC (4.5-10.0) K/mm3 RBC (4.6-6.20) M/mm3 Hgb (14.0-18.0) g/dL Hct (42.0-52.0) % MCV (80-100) fl MCH (26-34) pg MCHC (32-36) g/dl RDW (11.5-14.5) % Plt Count (150-375) k/mm3 MPV (7.4-10.4) fl Immature Gran % (Auto) (0-0.5) % Neut % (Auto) (45.5-73.1) % Lymph % (Auto) (18.3-44.2) % [place] % (Auto) (2.6-8.5) % Eos % (Auto) (0-4.4) % Baso % (Auto) (0.2-1.2) % Lymph # (Auto) (0.9-3.2) K/mm3 [place] # (Auto) (0.1-0.6) K/mm3 Eos # (Auto) (0-0.3) K/mm3 Baso # (Auto) (0.0-0.1) K/mm3 Abs Immat Gran (auto) (0.00-0.031) K/mm3 Absolute Neuts (auto) (1.3-6.7) K/mm3 Absolute Nucleated RBC (0.0-0.012) K/mm3 Band Neutrophils % Nucleated RBC % (0.0-0.2) % Platelet Estimate (Adequate) % Immature Plt Fraction (0.9-11.2) % Macrocytosis (NORMAL) Schistocytes PT (11.1-14.7) Seconds INR APTT (22.3-36.8) Seconds D-Dimer (<0.48) ug/mL Methemoglobin 0.1 (0-1.5) %THb Sodium (137-145) mmol/L Potassium (3.4-5.0) mmol/L Chloride (98-107) mmol/L Carbon Dioxide (22-30) mmol/L Anion Gap (4-12) mmol/L BUN (9-20) mg/dL Creatinine (0.7-1.3) mg/dL Estim Creat Clear Calc ml/min Estimated GFR (59 - ) Glucose (65-110) mg/dL POC Capillary Glucose (65-105) mg/dl Calcium (8.4-10.2) mg/dL Total Bilirubin (0.2-1.3) mg/dL AST (17-59) U/L ALT (6-50) U/L Alkaline Phosphatase (38-126) U/L NT-Pro-B Natriuret Pep (19.9-100) pg/mL Total Protein (6.3-8.2) g/dL Albumin (3.5-5.1) g/dL <Isi Cuadra PA-C - Last Filed: 03/11/25 17:20> Lab Results 03/09/25 03/09/25 03/09/25 Range/Units 11:56 12:08 14:54 WBC 10.1 H (4.5-10.0) K/mm3 RBC 2.74 L (4.6-6.20) M/mm3 Hgb 8.8 L (14.0-18.0) g/dL Hct 28.8 L (42.0-52.0) % MCV 105.1 H (80-100) fl MCH 32.1 (26-34) pg MCHC 30.6 L (32-36) g/dl RDW 17.2 H (11.5-14.5) % Plt Count 57 L (150-375) k/mm3 MPV 12.1 H (7.4-10.4) fl Immature Gran % (Auto) 0.7 H (0-0.5) % Neut % (Auto) 87.3 H (45.5-73.1) % Lymph % (Auto) 3.6 L (18.3-44.2) % [place] % (Auto) 8.1 (2.6-8.5) % Eos % (Auto) 0.0 (0-4.4) % Baso % (Auto) 0.3 (0.2-1.2) % Lymph # (Auto) 0.36 L (0.9-3.2) K/mm3 [place] # (Auto) 0.8 H (0.1-0.6) K/mm3 Eos # (Auto) 0.0 (0-0.3) K/mm3 Baso # (Auto) 0.0 (0.0-0.1) K/mm3 Abs Immat Gran (auto) 0.07 H (0.00-0.031) K/mm3 Absolute Neuts (auto) 8.8 H (1.3-6.7) K/mm3 Absolute Nucleated RBC 0.000 (0.0-0.012) K/mm3 Band Neutrophils % Not Reportable Nucleated RBC % 0.0 (0.0-0.2) % Platelet Estimate Decreased (Adequate) % Immature Plt Fraction 5.5 (0.9-11.2) % Macrocytosis 1+ (NORMAL) Schistocytes None seen PT (11.1-14.7) Seconds INR APTT (22.3-36.8) Seconds D-Dimer (<0.48) ug/mL Methemoglobin (0-1.5) %THb Sodium 140 (137-145) mmol/L Potassium 5.5 H (3.4-5.0) mmol/L Chloride 101 (98-107) mmol/L Carbon Dioxide 25 (22-30) mmol/L Anion Gap 14 H (4-12) mmol/L BUN 79 H D (9-20) mg/dL Creatinine 9.06 H (0.7-1.3) mg/dL Estim Creat Clear Calc 9 ml/min Estimated GFR 6 L (59 - ) Glucose 150 H (65-110) mg/dL POC Capillary Glucose 171 H 140 H (65-105) mg/dl Calcium 8.6 (8.4-10.2) mg/dL Total Bilirubin 0.8 (0.2-1.3) mg/dL AST 23 (17-59) U/L ALT 19 (6-50) U/L Alkaline Phosphatase 140 H (38-126) U/L NT-Pro-B Natriuret Pep > 13152 H (19.9-100) pg/mL Total Protein 7.1 (6.3-8.2) g/dL Albumin 3.2 L (3.5-5.1) g/dL 03/09/25 03/09/25 03/09/25 Range/Units 16:25 16:26 17:10 WBC (4.5-10.0) K/mm3 RBC (4.6-6.20) M/mm3 Hgb (14.0-18.0) g/dL Hct (42.0-52.0) % MCV (80-100) fl MCH (26-34) pg MCHC (32-36) g/dl RDW (11.5-14.5) % Plt Count (150-375) k/mm3 MPV (7.4-10.4) fl Immature Gran % (Auto) (0-0.5) % Neut % (Auto) (45.5-73.1) % Lymph % (Auto) (18.3-44.2) % [place] % (Auto) (2.6-8.5) % Eos % (Auto) (0-4.4) % Baso % (Auto) (0.2-1.2) % Lymph # (Auto) (0.9-3.2) K/mm3 [place] # (Auto) (0.1-0.6) K/mm3 Eos # (Auto) (0-0.3) K/mm3 Baso # (Auto) (0.0-0.1) K/mm3 Abs Immat Gran (auto) (0.00-0.031) K/mm3 Absolute Neuts (auto) (1.3-6.7) K/mm3 Absolute Nucleated RBC (0.0-0.012) K/mm3 Band Neutrophils % Nucleated RBC % (0.0-0.2) % Platelet Estimate (Adequate) % Immature Plt Fraction (0.9-11.2) % Macrocytosis (NORMAL) Schistocytes PT 26.8 H (11.1-14.7) Seconds INR 2.6 APTT 44.5 H (22.3-36.8) Seconds D-Dimer 1.92 H (<0.48) ug/mL Methemoglobin (0-1.5) %THb Sodium 141 (137-145) mmol/L Potassium 5.0 (3.4-5.0) mmol/L Chloride 102 (98-107) mmol/L Carbon Dioxide 27 (22-30) mmol/L Anion Gap 12 (4-12) mmol/L BUN 80 H (9-20) mg/dL Creatinine 8.71 H (0.7-1.3) mg/dL Estim Creat Clear Calc 9 ml/min Estimated GFR 6 L (59 - ) Glucose 100 (65-110) mg/dL POC Capillary Glucose 110 H (65-105) mg/dl Calcium 8.6 (8.4-10.2) mg/dL Total Bilirubin (0.2-1.3) mg/dL AST (17-59) U/L ALT (6-50) U/L Alkaline Phosphatase (38-126) U/L NT-Pro-B Natriuret Pep (19.9-100) pg/mL Total Protein (6.3-8.2) g/dL Albumin (3.5-5.1) g/dL 03/09/25 Range/Units 18:40 WBC (4.5-10.0) K/mm3 RBC (4.6-6.20) M/mm3 Hgb (14.0-18.0) g/dL Hct (42.0-52.0) % MCV (80-100) fl MCH (26-34) pg MCHC (32-36) g/dl RDW (11.5-14.5) % Plt Count (150-375) k/mm3 MPV (7.4-10.4) fl Immature Gran % (Auto) (0-0.5) % Neut % (Auto) (45.5-73.1) % Lymph % (Auto) (18.3-44.2) % [place] % (Auto) (2.6-8.5) % Eos % (Auto) (0-4.4) % Baso % (Auto) (0.2-1.2) % Lymph # (Auto) (0.9-3.2) K/mm3 [place] # (Auto) (0.1-0.6) K/mm3 Eos # (Auto) (0-0.3) K/mm3 Baso # (Auto) (0.0-0.1) K/mm3 Abs Immat Gran (auto) (0.00-0.031) K/mm3 Absolute Neuts (auto) (1.3-6.7) K/mm3 Absolute Nucleated RBC (0.0-0.012) K/mm3 Band Neutrophils % Nucleated RBC % (0.0-0.2) % Platelet Estimate (Adequate) % Immature Plt Fraction (0.9-11.2) % Macrocytosis (NORMAL) Schistocytes PT (11.1-14.7) Seconds INR APTT (22.3-36.8) Seconds D-Dimer (<0.48) ug/mL Methemoglobin 0.1 (0-1.5) %THb Sodium (137-145) mmol/L Potassium (3.4-5.0) mmol/L Chloride (98-107) mmol/L Carbon Dioxide (22-30) mmol/L Anion Gap (4-12) mmol/L BUN (9-20) mg/dL Creatinine (0.7-1.3) mg/dL Estim Creat Clear Calc ml/min Estimated GFR (59 - ) Glucose (65-110) mg/dL POC Capillary Glucose (65-105) mg/dl Calcium (8.4-10.2) mg/dL Total Bilirubin (0.2-1.3) mg/dL AST (17-59) U/L ALT (6-50) U/L Alkaline Phosphatase (38-126) U/L NT-Pro-B Natriuret Pep (19.9-100) pg/mL Total Protein (6.3-8.2) g/dL Albumin (3.5-5.1) g/dL <Nelly Olivo MD - Last Filed: 03/09/25 22:02> ABG Data ABG results: 03/09/25 18:40 Puncture Site Right radial ABG pH 7.466 H ABG pCO2 33.9 L ABG pO2 62.4 L ABG PO2/FiO2 Ratio 1.73 ABG HCO3 23.9 ABG O2 Saturation 93.4 L ABG O2 Content 12.2 L ABG Base Excess 0.4 A-a Gradient 155.0 Oxyhemoglobin 88.9 L Carboxyhemoglobin 1.6 Reduced Hemoglobin 9.4 H Total Hemoglobin 9.7 L O2 Delivery Device Nasal cannula O2 Liters/Min 4.0 FiO2 36 <Isi Cuadra PA-C - Last Filed: 03/11/25 17:20> 03/09/25 18:40 Puncture Site Right radial ABG pH 7.466 H ABG pCO2 33.9 L ABG pO2 62.4 L ABG PO2/FiO2 Ratio 1.73 ABG HCO3 23.9 ABG O2 Saturation 93.4 L ABG O2 Content 12.2 L ABG Base Excess 0.4 A-a Gradient 155.0 Oxyhemoglobin 88.9 L Carboxyhemoglobin 1.6 Reduced Hemoglobin 9.4 H Total Hemoglobin 9.7 L O2 Delivery Device Nasal cannula O2 Liters/Min 4.0 FiO2 36 <Nelly Olivo MD - Last Filed: 03/09/25 22:02> Imaging Data Radiologist's impression: ITS Impressions Chest X-Ray 03/09/25 13:59 Impression: 1: Right perihilar airspace disease, suspicious for pneumonia. 2: Small right pleural effusion. Chest CTA 03/09/25 20:53 IMPRESSION: No pulmonary embolus. No thoracic aortic dissection. Significant enlargement of the main pulmonary artery, consistent with pulmonary hypertension. Redemonstration of cardiomegaly. Extensive mediastinal and supraclavicular lymphadenopathy, unchanged from prior. Bibasilar consolidation with small bilateral pleural effusions. <Isi Cuadra PA-C - Last Filed: 03/11/25 17:20> Critical Care Time Critical Care Time Critical Care Time: Yes <Isi Cuadra PA-C - Last Filed: 03/11/25 17:20> Total Critical Care Time: 35 <Isi Cuadra PA-C - Last Filed: 03/11/25 17:20> 47 (Please refer to [facility] for attestation.) <Nelly Olivo MD - Last Filed: 03/09/25 22:02> Discharge Plan Discharge Clinical Impression: ESRD (end stage renal disease) on dialysis Respiratory failure Qualifiers: Chronicity: acute Respiratory failure complication: hypoxia Qualified Code(s): J96.01 - Acute respiratory failure with hypoxia Fluid overload Qualifiers: Hypervolemia type: other Qualified Code(s): E87.79 - Other fluid overload <Isi Cuadra PA-C - Last Filed: 03/11/25 17:20> Patient Disposition: Still a Patient <Isi Cuadra PA-C - Last Filed: 03/11/25 17:20> Condition: Improved <Isi Cuadra PA-C - Last Filed: 03/11/25 17:20> Time of Disposition: 22:01 <Isi Cuadra PA-C - Last Filed: 03/11/25 17:20> 22:01 <Nelly Olivo MD - Last Filed: 03/09/25 22:02>
[2025-03-09] MEDS: SODIUM BICARBONATE 8.4% 50 MEQ/50 ML SYRINGE IV PUSH (14:56)
[2025-03-09] MEDS: CALCIUM GLUCONATE 1,000 MG/10 ML VIAL 1000 MG IV PUSH (14:58)
[2025-03-09] MEDS: DEXTROSE 50% 25 GM/50 ML SYRINGE IV PUSH (15:08)
[2025-03-09] MEDS: INSULIN HUMAN REGULAR (*BKC) 100 UNITS/ML 10 UNITS IV PUSH (15:08)
[2025-03-09] MEDS: cefTRIAXone 1 GM in SODIUM CHLORIDE 0.9% IV 50 ML 100 ML IVPB (15:16)
[2025-03-09 16:44] LABS: Anion Gap 12 mmol/L (4-12); Blood Urea Nitrogen 80 mg/dL (9-20); Calcium 8.6 mg/dL (8.4-10.2); Carbon Dioxide 27 mmol/L (22-30); Chloride 102 mmol/L (98-107); Estimated CRCL calculation 9 ml/min; Estimated Glomerular Filt Rate 6; Glucose 100 mg/dL (65-110); Potassium 5.0 mmol/L (3.4-5.0); Sodium 141 mmol/L (137-145)
[2025-03-09] MEDS: AZITHROMYCIN IV 500 MG in SODIUM CHLORIDE 0.9% IV 250 ML IVPB (16:47)
[2025-03-09 17:30] LABS: INR 2.6; Partial Thromboplastin Time 44.5 Seconds (22.3-36.8); Prothrombin Time 26.8 Seconds (11.1-14.7)
[2025-03-09] MEDS: IPRATROPIUM 0.5 MG/ALBUTEROL SULFATE 2.5 MG AMPUL.NEB 3 ML INHALATION (18:02)
[2025-03-09 19:10] LABS: Alveolar/Arterial O2 Gradient 155.0 mmHg; Carboxyhemoglobin 1.6 % THb (0-2.0); Fractional Inspired Oxygen 36 %; HCO3 ABG 23.9 mEq/l (22.0-26.0); Methemoglobin ABG 0.1 %THb (0-1.5); Modified Allen's Test Pass; Oxygen Content ABG 12.2 %vol (16.0-22.0); Oxygen Saturation ABG 93.4 % (95.0-100.0); PCO2 ABG 33.9 mmHg (35.0-45.0); PO2 ABG 62.4 mmHg (80.0-100.0); PO2 FiO2 Ratio Arterial Blood 1.73 %; Reduced Hemoglobin 9.4 %THb (0-5.0); Site Drawn RIGHT RADIAL
[2025-03-09 19:11] LABS: Liters per Minute 4.0 LPM
--- NOTE | 2025-03-09 23:05 | WNDPHOTO ---
PHOTO ONLY - See Nursing Notes and/ or assessments for documentation.
--- NOTE | 2025-03-09 23:07 | WNDPHOTO ---
PHOTO ONLY - See Nursing Notes and/ or assessments for documentation.
--- NOTE | 2025-03-09 23:09 | ADMGEN ---
This patient, Kobi Salter, was admitted to IMU Room 210-. Patient/family oriented to hospital policies and general routines including ID bracelet, bed and alarms, visiting hours, pain management, procedures, bathroom and other care routines, personal items, smoking policy, room service/diet, and visiting hours. Information on how to activate the Rapid Response Team has been discussed. Patient/Family are encouraged to report perceived risks to care and to ask questions if they do not understand what they are told or what they should do.
[2025-03-10] VITALS (49 sets, daily range): BP systolic 98–147; BP diastolic 31–82; PULSE 39–98; RESP 12–23; TEMP 35.9–37.2; O2SAT 90–100; BMI 27.6
--- NOTE | 2025-03-10 02:43 | ECG_ITS ---
Test Date: 2025-03-10 02:58:30 Measurements Intervals [place] Rate: 62 P: 0 WI: 0 QRS: -49 QRSD: 133 T: 61 QT: 466 QTc: 473 Interpretive Statements SUSPECT ACCELERATED JUNCTIONAL RHYTHM INTRAVENTRICULAR CONDUCTION DELAY ABNORMAL ECG Compared to ECG 03/09/2025 11:59:50 NO SIGNIFICANT CHANGE Electronically Signed On 03-10-2025 07:54:26 CDT by Brayden Lynne M.D.
[2025-03-10 04:20] LABS: Hematocrit 25.9 % (42.0-52.0); Hemoglobin 8.0 g/dL (14.0-18.0); Immature Granulocyte Percent A 0.5 % (0-0.5); Immature Platelet Fraction Pct 6.0 % (0.9-11.2); Lymphocytes Absolute Auto 0.29 K/mm3 (0.9-3.2); Mean Corpuscular HGB Conc 30.9 g/dl (32-36); Mean Corpuscular Hemoglobin 32.0 pg (26-34); Mean Corpuscular Volume 103.6 fl (80-100); Nucleated Red Blood Cells Absolute Auto 0.000 K/mm3 (0.0-0.012); Nucleated Red Blood Cells Perc 0.0 % (0.0-0.2); Platelet Count Result 53 k/mm3 (150-375); Red Blood Count 2.50 M/mm3 (4.6-6.20); White Blood Count 6.5 K/mm3 (4.5-10.0)
--- NOTE | 2025-03-10 04:21 | PC.NURSE ---
patient's telemetry rythm has changed throughout the night. ...different block. EKG obtained. At this time, rate is 40's 50's. Spoke with Dr. Hall and new orders received.
--- NOTE | 2025-03-10 04:23 | PC.NURSE ---
The same orders from dr. Hall already completed this am by dr. schneider.
[2025-03-10 04:40] LABS: Alanine Aminotransferase 15 U/L (6-50); Albumin Level 2.9 g/dL (3.5-5.1); Alkaline Phosphatase 128 U/L (38-126); Anion Gap 14 mmol/L (4-12); Aspartate Amino Transferase 17 U/L (17-59); Bilirubin,Total 0.8 mg/dL (0.2-1.3); Blood Urea Nitrogen 87 mg/dL (9-20); Calcium 8.4 mg/dL (8.4-10.2); Carbon Dioxide 25 mmol/L (22-30); Chloride 101 mmol/L (98-107); Estimated CRCL calculation 8 ml/min; Estimated Glomerular Filt Rate 6; Glucose 77 mg/dL (65-110); Magnesium 2.2 mg/dL (1.6-2.3); Potassium 5.5 mmol/L (3.4-5.0); Sodium 140 mmol/L (137-145); Total Protein 6.5 g/dL (6.3-8.2)
[2025-03-10 05:12] LABS: Hepatitis B Surface Antigen Negative (Negative)
[2025-03-10 05:20] LABS: Anisocytosis 1+; Band Neutrophils Percent 0 % (0-6); Hypochromasia 1+; Ovalocytes 1+; Schistocytes None Seen
[2025-03-10 05:29] LABS: Hepatitis B Surface Anti Res Negative
[2025-03-10 07:09] LABS: MRSA (PCR) DETECTED (NOT DETECTE)
--- NOTE | 2025-03-10 07:38 | P.HP_ITS ---
H&P: HPI History of Present Illness Date/Time: 03/10/25 05:25 Chief Complaint: Shortness of breath Narrative: 59-year-old male with a past medical history end-stage renal disease on hemodialysis, chronic anemia, combined systolic and diastolic heart failure, coronary artery disease status post 4 vessel bypass, hypertension, hyperlipidemia, type 2 diabetes mellitus and bilateral lower extremity [id number] amputation among other comorbidities who presented to the ER from [facility] due to shortness of breath and lethargy. A entirety of history was obtained from review of past medical records ER physician report and long-term report as the patient is a poor historian. And on the long-term staff noted the patient was lethargic and having difficulty breathing they checked his pulse ox any satting 80's on room air. The patient had refused to go to dialysis for 6 days. Patient was alert oriented to in the ER. He was hypoxic in the ER and tachypneic with respiratory rate in the upper 20s and 30s. He was placed on BiPAP with improvement in his respiratory status. ABG demonstrated respiratory alkalosis with persistent hypoxia on 4 L nasal cannula. Patient was hyperkalemic on presentation to the ER and received bicarb insulin dextrose. He had also received a L of IV fluids. The patient developed increasing respiratory distress and placed on BiPAP. The patient's was transferred up to the eye IMU and when he arrived to the IMU he was back on nasal cannula for transport. He arrived to the IMU was satting 79%. He was placed back on BiPAP. At the time my evaluation patient was on BiPAP 12/6 with a rate of 12 than 50% FiO2 with oxygen saturations of 96%. Patient was pulling large tidal volumes of 600-800. The patient was unable to provide any history due to being confused. Patient's baseline mentation is unknown. The patient had initially received antibiotics for possible pneumonia in the ER but after imaging and affect the patient did not have a white count or fever antibiotics were discontinued. Review of Systems 2 Review of Systems: Limited due to patient condition/BiPAP and altered mental status [facility] Past Medical History Medical History (Updated 03/10/25 @ 08:30 by Bianka Hall DO) Iron deficiency anemia MRSA infection Clostridium difficile diarrhea Paroxysmal atrial fibrillation Transient atrial fibrillation following bypass surgery. Coronary artery disease History of multiple stents and 4 vessel bypass. Type 2 diabetes mellitus Hyperlipidemia End-stage renal disease on hemodialysis Combined systolic and diastolic congestive heart failure Anxiety and depression Obstructive sleep apnea does not use a CPAP Anemia of chronic disease Diabetic nephropathy Diabetic peripheral neuropathy Arthritis Surgical History Surgical History History of right below knee amputation History of five vessel coronary artery bypass (2018) [facility] History of cataract extraction with lens replacement History of coronary artery stent placement History of cardiac catheterization History of left below knee amputation History of amputation of toe left 5th toe 2013 small toe on the right amputated Family History Family History Sibling Patient's sister is Diabetes mellitus Sister Acute myocardial infarction Three brothers and 2 sisters History of blood clots Sister Abdominal aortic aneurysm Sister Dementia Brother COPD (chronic obstructive pulmonary disease) Brother Father Acute myocardial infarction, Onset Age: 65 Mother History of blood clots Hypertension, Onset Age: 80 Social History Social History (Updated 03/10/25 @ 08:12 by Bianka Hall DO) Social History: Surrogate medical decision maker: Melodie Roca (niece) or Alejandra Murray (sister). Code status: DNR/DNI Smoking packs per day: 0.25 Smoking cigarettes per day: 5.0 Years smoked: 30 Smoking pack-years: 7.50 Smoking status: Former smoker Alcohol intake: unknown Drinks per week: 2 Alcohol use details: Social alcohol use. Substance use: unknown Substance use type: marijuana Last use: 2018 Do You Feel Safe in your Home?: Yes Lack of Transportation: No Lack of Food: Never True Current Housing: I Have Housing Concerned About Future Housing: No Difficulty Paying Gas/Electric Bills: No Difficulty Paying for Meds: No Currently Unemployed: No Education: Don't Know Difficulty w/ Childcare or Family Care: No Additional living arrangements comments: [facility]. Additional occupation/education comments: Disabled. Spiritual care concerns: No Meds Home Medications and Allergies Home Medications ?Medication ?Instructions ?Recorded ?Confirmed ?Type ferrous sulfate 325 mg (65 mg 325 mg PO DAILY 06/01/20 03/10/25 History iron) tablet multivitamin 1 tablet PO DAILY 06/01/20 03/10/25 History nitroglycerin 0.4 mg sublingual 0.4 mg sublingual Q5-15M PRN Chest 06/01/20 03/10/25 History tablet Pain omega-3 fatty acids-fish oil 360 1 cap PO DAILY 06/01/20 03/10/25 History mg-1,200 mg capsule atorvastatin 40 mg tablet (Lipitor) 40 mg PO HS 12/23/20 03/10/25 History folic acid 1 mg tablet 1 mg PO DAILY 12/23/20 03/10/25 History gabapentin 100 mg tablet 200 mg PO HS 12/23/20 03/10/25 History sevelamer carbonate 800 mg tablet 800 mg PO DAILY@1700 12/23/20 03/10/25 History tamsulosin 0.4 mg capsule (Flomax) 0.4 mg PO DAILY 12/23/20 03/10/25 History linagliptin 5 mg tablet (Tradjenta) 5 mg PO DAILY 01/13/23 03/10/25 History mirtazapine 15 mg tablet 15 mg PO HS 01/13/23 03/10/25 History sertraline 50 mg tablet 25 mg PO HS 01/13/23 03/10/25 History aspirin 81 mg tablet 81 mg PO DAILY 09/17/23 03/10/25 History meclizine 25 mg tablet 25 mg PO Q8H PRN Dizziness 09/17/23 03/10/25 History midodrine 10 mg tablet 10 mg PO BID 09/17/23 03/10/25 History acetaminophen 325 mg tablet 650 mg PO Q6H PRN Pain (Scale 10/29/23 03/10/25 History (Tylenol) Score 1-3) naloxone 4 mg/actuation nasal spray 1 spray intranasal Q3M PRN Opioid 10/29/23 03/10/25 History Overdose sennosides 8.6 mg-docusate sodium 1 tablet PO BID PRN Constipation 10/29/23 03/10/25 History 50 mg tablet (Senna Plus) guaifenesin 100 mg/5 mL oral syrup 600 mg PO Q8H PRN Cough 03/03/24 03/10/25 History lanolin alcohols-mineral 1 applic topical QPM 03/03/24 03/10/25 History oil-w.petrolatum-ceresin topical cream (Eucerin topical cream) diphenoxylate-atropine 2.5 2 tablet PO TID PRN Diarrhea #15 07//24 07/09/25 Rx mg-0.025 mg tablet (Lomotil) tabs tramadol 50 mg tablet 50 mg PO Q4H PRN Pain (Scale Score 03/06/24 03/10/25 Rx 4-6) #15 tabs tizanidine 2 mg tablet 2 mg PO TID 10/19/24 03/10/25 History ascorbic acid (vitamin C) 500 mg 500 mg PO BID 03/10/25 03/10/25 History tablet famotidine 20 mg tablet 20 mg PO BID 03/10/25 03/10/25 History mirtazapine 7.5 mg tablet 7.5 mg PO HS 03/10/25 03/10/25 History nut.tx.imp.renal fxn,lac-reduc 1 ea PO HS 03/10/25 03/10/25 History 0.08 gram-1.8 kcal/mL oral liquid polyethylene glycol 3350 17 gram 17 g PO DAILY PRN constipation 03/10/25 03/10/25 History oral powder packet tizanidine 2 mg tablet 2 mg PO BID 03/10/25 03/10/25 History vitamin B complex-vitamin C-folic 1 tablet PO DAILY 03/10/25 03/10/25 History acid 0.8 mg tablet (Nephro-[place]) zinc sulfate 220 mg capsule 220 mg PO DAILY 03/10/25 03/10/25 History Allergies Allergy/AdvReac Type Severity Reaction Status Date / Time Penicillins Allergy Unknown Unknown Verified 12/21/24 09:37 bee venom protein (honey bee) Allergy Swelling Verified 12/21/24 09:37 Vital Signs Vital Signs - 24 hr 03/09/25 11:42 03/09/25 12:08 03/09/25 12:51 Temperature 98.6 F Pulse Rate 71 Respiratory Rate 21 H Blood Pressure 125/56 L Pulse Oximetry 89 L 95 96 Oxygen Delivery Room Air Nasal Cannula Nasal Cannula Oxygen Flow Rate 3 3 03/09/25 12:54 03/09/25 14:46 03/09/25 14:47 Temperature Pulse Rate 70 63 66 Respiratory Rate 19 23 H 22 H Blood Pressure 104/72 122/53 L Pulse Oximetry 97 98 98 Oxygen Delivery Oxygen Flow Rate 03/09/25 15:00 03/09/25 15:15 03/09/25 15:30 Temperature Pulse Rate 61 68 69 Respiratory Rate 27 H 18 26 H Blood Pressure Pulse Oximetry 98 95 Oxygen Delivery Oxygen Flow Rate 03/09/25 15:31 03/09/25 16:01 03/09/25 16:41 Temperature Pulse Rate 67 100 Respiratory Rate 26 H 12 Blood Pressure 126/44 L 119/48 L 116/56 L Pulse Oximetry 92 Oxygen Delivery Oxygen Flow Rate 03/09/25 16:41 03/09/25 16:43 03/09/25 16:45 Temperature Pulse Rate 81 79 Respiratory Rate 36 H 29 H Blood Pressure 116/56 L Pulse Oximetry 90 92 91 Oxygen Delivery Oxygen Flow Rate 03/09/25 17:00 03/09/25 17:01 03/09/25 17:15 Temperature Pulse Rate 94 97 92 Respiratory Rate 39 H 23 H 22 H Blood Pressure 119/70 Pulse Oximetry 90 92 Oxygen Delivery Oxygen Flow Rate 03/09/25 17:30 03/09/25 17:31 03/09/25 17:45 Temperature Pulse Rate 73 72 71 Respiratory Rate 33 H 33 H 30 H Blood Pressure 120/57 L 120/57 L Pulse Oximetry 98 91 Oxygen Delivery Oxygen Flow Rate 03/09/25 17:45 03/09/25 18:02 03/09/25 18:16 Temperature Pulse Rate 72 72 79 Respiratory Rate 32 H 29 H 30 H Blood Pressure Pulse Oximetry 93 Oxygen Delivery Oxygen Flow Rate 03/09/25 18:30 03/09/25 18:33 03/09/25 18:54 Temperature Pulse Rate 82 81 80 Respiratory Rate 34 H 19 30 H Blood Pressure 121/103 H Pulse Oximetry 91 89 L Oxygen Delivery Oxygen Flow Rate 03/09/25 18:59 03/09/25 19:00 03/09/25 19:00 Temperature Pulse Rate 80 79 Respiratory Rate 31 H 26 H Blood Pressure Pulse Oximetry 91 95 Oxygen Delivery Nasal Cannula BiPAP Oxygen Flow Rate 4 03/09/25 19:01 03/09/25 19:15 03/09/25 19:31 Temperature Pulse Rate 80 79 77 Respiratory Rate 28 H 27 H 24 H Blood Pressure 111/99 H 114/73 Pulse Oximetry 96 Oxygen Delivery Oxygen Flow Rate 03/09/25 19:32 03/09/25 19:45 03/09/25 20:00 Temperature Pulse Rate 76 77 74 Respiratory Rate 26 H 27 H 22 H Blood Pressure Pulse Oximetry Oxygen Delivery Oxygen Flow Rate 03/09/25 20:01 03/09/25 20:41 03/09/25 21:30 Temperature Pulse Rate 77 77 88 Respiratory Rate 25 H 23 H 25 H Blood Pressure 117/46 L 110/47 L Pulse Oximetry 92 96 Oxygen Delivery BiPAP Oxygen Flow Rate 03/09/25 21:31 03/09/25 22:33 03/09/25 22:53 Temperature 98.5 F 98.5 F Pulse Rate 73 80 77 Respiratory Rate 21 H 23 H 17 Blood Pressure 117/52 L 122/64 116/50 L Pulse Oximetry 96 96 93 Oxygen Delivery Oxygen Flow Rate 03/09/25 23:50 03/10/25 00:00 03/10/25 01:47 Temperature Pulse Rate 91 75 98 Respiratory Rate 24 H 21 H Blood Pressure Pulse Oximetry 96 97 Oxygen Delivery BiPAP BiPAP Oxygen Flow Rate 03/10/25 02:00 03/10/25 03:07 03/10/25 04:00 Temperature 98.4 F Pulse Rate 65 63 59 L Respiratory Rate 17 Blood Pressure 147/52 H Pulse Oximetry 99 Oxygen Delivery Oxygen Flow Rate 03/10/25 06:10 Temperature Pulse Rate 56 L Respiratory Rate Blood Pressure Pulse Oximetry Oxygen Delivery Oxygen Flow Rate Exam 2 Narrative: Weight 92.4 kg BMI 27.6 Const: Other: Acute on chronic Chronically ill-appearing, appears older than stated age HENMT: Other: Mucous membranes are dry, oral exam limited due to BiPAP, pupils are equal and reactive, positive conjunctival pallor, bilateral lens implants noted Neck: Other: JVD, no lymphadenopathy Resp: Other: Crackles bilaterally, no tachypnea, no accessory muscle use Cardio: Other: Bradycardic, irregular, absent left radial pulse GI: Other: Soft, nontender, nondistended, positive bowel sounds : Other: Depends in place Skin: Other: Generalized pallor, non jaundice Neuro: Other: Lethargic, confused Extrem: Other: Bilateral below-knee amputation, 4/5 director career 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 bilateral H&P: Results Labs Labs: Laboratory Tests 03/10/25 03:58 03/10/25 03:58 03/09/25 03/09/25 03/09/25 11:56 12:08 14:54 WBC 10.1 H RBC 2.74 L Hgb 8.8 L Hct 28.8 L MCV 105.1 H MCH 32.1 MCHC 30.6 L RDW 17.2 H Plt Count 57 L MPV 12.1 H Immature Gran % (Auto) 0.7 H Neut % (Auto) 87.3 H Lymph % (Auto) 3.6 L [place] % (Auto) 8.1 Eos % (Auto) 0.0 Baso % (Auto) 0.3 Lymph # (Auto) 0.36 L [place] # (Auto) 0.8 H Eos # (Auto) 0.0 Baso # (Auto) 0.0 Abs Immat Gran (auto) 0.07 H Absolute Neuts (auto) 8.8 H Absolute Nucleated RBC 0.000 Band Neutrophils % Not Reportable Nucleated RBC % 0.0 Platelet Estimate Decreased % Immature Plt Fraction 5.5 Hypochromasia Anisocytosis Macrocytosis 1+ Ovalocytes Schistocytes None seen PT INR APTT D-Dimer Puncture Site ABG pH ABG pCO2 ABG pO2 ABG PO2/FiO2 Ratio ABG HCO3 ABG O2 Saturation ABG O2 Content ABG Base Excess A-a Gradient Oxyhemoglobin Carboxyhemoglobin Methemoglobin Reduced Hemoglobin Total Hemoglobin O2 Delivery Device O2 Liters/Min FiO2 Sodium 140 Potassium 5.5 H Chloride 101 Carbon Dioxide 25 Anion Gap 14 H BUN 79 H D Creatinine 9.06 H Estim Creat Clear Calc 9 Estimated GFR 6 L Glucose 150 H POC Capillary Glucose 171 H 140 H Calcium 8.6 Phosphorus Magnesium Total Bilirubin 0.8 AST 23 ALT 19 Alkaline Phosphatase 140 H NT-Pro-B Natriuret Pep > 46320 H Total Protein 7.1 Albumin 3.2 L Nasal MRSA (PCR) Hep Bs Antigen Hep Bs Antibody 03/09/25 03/09/25 03/09/25 16:25 16:26 17:10 WBC RBC Hgb Hct MCV MCH MCHC RDW Plt Count MPV Immature Gran % (Auto) Neut % (Auto) Lymph % (Auto) [place] % (Auto) Eos % (Auto) Baso % (Auto) Lymph # (Auto) [place] # (Auto) Eos # (Auto) Baso # (Auto) Abs Immat Gran (auto) Absolute Neuts (auto) Absolute Nucleated RBC Band Neutrophils % Nucleated RBC % Platelet Estimate % Immature Plt Fraction Hypochromasia Anisocytosis Macrocytosis Ovalocytes Schistocytes PT 26.8 H INR 2.6 APTT 44.5 H D-Dimer 1.92 H Puncture Site ABG pH ABG pCO2 ABG pO2 ABG PO2/FiO2 Ratio ABG HCO3 ABG O2 Saturation ABG O2 Content ABG Base Excess A-a Gradient Oxyhemoglobin Carboxyhemoglobin Methemoglobin Reduced Hemoglobin Total Hemoglobin O2 Delivery Device O2 Liters/Min FiO2 Sodium 141 Potassium 5.0 Chloride 102 Carbon Dioxide 27 Anion Gap 12 BUN 80 H Creatinine 8.71 H Estim Creat Clear Calc 9 Estimated GFR 6 L Glucose 100 POC Capillary Glucose 110 H Calcium 8.6 Phosphorus Magnesium Total Bilirubin AST ALT Alkaline Phosphatase NT-Pro-B Natriuret Pep Total Protein Albumin Nasal MRSA (PCR) Hep Bs Antigen Hep Bs Antibody 03/09/25 03/10/25 03/10/25 18:40 03:58 05:43 WBC 6.5 RBC 2.50 L Hgb 8.0 L Hct 25.9 L MCV 103.6 H MCH 32.0 MCHC 30.9 L RDW 17.0 H Plt Count 53 L MPV 12.4 H Immature Gran % (Auto) 0.5 Neut % (Auto) 86.8 H Lymph % (Auto) 4.5 L [place] % (Auto) 8.0 Eos % (Auto) 0.0 Baso % (Auto) 0.2 Lymph # (Auto) 0.29 L [place] # (Auto) 0.5 Eos # (Auto) 0.0 Baso # (Auto) 0.0 Abs Immat Gran (auto) 0.03 Absolute Neuts (auto) 5.7 Absolute Nucleated RBC 0.000 Band Neutrophils % 0 Nucleated RBC % 0.0 Platelet Estimate Decreased % Immature Plt Fraction 6.0 Hypochromasia 1+ Anisocytosis 1+ Macrocytosis Ovalocytes 1+ Schistocytes None seen PT INR APTT D-Dimer Puncture Site Right radial ABG pH 7.466 H ABG pCO2 33.9 L ABG pO2 62.4 L ABG PO2/FiO2 Ratio 1.73 ABG HCO3 23.9 ABG O2 Saturation 93.4 L ABG O2 Content 12.2 L ABG Base Excess 0.4 A-a Gradient 155.0 Oxyhemoglobin 88.9 L Carboxyhemoglobin 1.6 Methemoglobin 0.1 Reduced Hemoglobin 9.4 H Total Hemoglobin 9.7 L O2 Delivery Device Nasal cannula O2 Liters/Min 4.0 FiO2 36 Sodium 140 Potassium 5.5 H Chloride 101 Carbon Dioxide 25 Anion Gap 14 H BUN 87 H Creatinine 9.57 H Estim Creat Clear Calc 8 Estimated GFR 6 L Glucose 77 POC Capillary Glucose Calcium 8.4 Phosphorus 4.8 H Magnesium 2.2 Total Bilirubin 0.8 AST 17 ALT 15 Alkaline Phosphatase 128 H NT-Pro-B Natriuret Pep Total Protein 6.5 Albumin 2.9 L Nasal MRSA (PCR) Detected A* Hep Bs Antigen Negative Hep Bs Antibody Negative 03/10/25 08:01 WBC RBC Hgb Hct MCV MCH MCHC RDW Plt Count MPV Immature Gran % (Auto) Neut % (Auto) Lymph % (Auto) [place] % (Auto) Eos % (Auto) Baso % (Auto) Lymph # (Auto) [place] # (Auto) Eos # (Auto) Baso # (Auto) Abs Immat Gran (auto) Absolute Neuts (auto) Absolute Nucleated RBC Band Neutrophils % Nucleated RBC % Platelet Estimate % Immature Plt Fraction Hypochromasia Anisocytosis Macrocytosis Ovalocytes Schistocytes PT INR APTT D-Dimer Puncture Site ABG pH ABG pCO2 ABG pO2 ABG PO2/FiO2 Ratio ABG HCO3 ABG O2 Saturation ABG O2 Content ABG Base Excess A-a Gradient Oxyhemoglobin Carboxyhemoglobin Methemoglobin Reduced Hemoglobin Total Hemoglobin O2 Delivery Device O2 Liters/Min FiO2 Sodium Potassium Chloride Carbon Dioxide Anion Gap BUN Creatinine Estim Creat Clear Calc Estimated GFR Glucose POC Capillary Glucose 75 Calcium Phosphorus Magnesium Total Bilirubin AST ALT Alkaline Phosphatase NT-Pro-B Natriuret Pep Total Protein Albumin Nasal MRSA (PCR) Hep Bs Antigen Hep Bs Antibody Microbiology 03/09/25 14:13 Sputum Sputum Culture - Final Not Reportable Impressions Chest X-Ray 03/09/25 13:59 Impression: 1: Right perihilar airspace disease, suspicious for pneumonia. 2: Small right pleural effusion. Chest CTA 03/09/25 20:53 IMPRESSION: No pulmonary embolus. No thoracic aortic dissection. Significant enlargement of the main pulmonary artery, consistent with pulmonary hypertension. Redemonstration of cardiomegaly. Extensive mediastinal and supraclavicular lymphadenopathy, unchanged from prior. Bibasilar consolidation with small bilateral pleural effusions. EKG:Test Date: 2025-03-10 02:58:30 Measurements Intervals [place] Rate: 62 P: 0 UT: 0 QRS: -49 QRSD: 133 T: 61 QT: 466 QTc: 473 Interpretive Statements SUSPECT ACCELERATED JUNCTIONAL RHYTHM INTRAVENTRICULAR CONDUCTION DELAY ABNORMAL ECG Compared to ECG 03/09/2025 11:59:50 NO SIGNIFICANT CHANGE All imaging and EKGs personally reviewed and interpreted. And unless stated otherwise agree with radiologic and cardiology interpretation. Assessment and Plan Assessment and plan (1) Fluid overload: Code(s): E87.70 - Fluid overload, unspecified Status: Acute (2) Acute respiratory failure with hypoxia: Code(s): J96.01 - Acute respiratory failure with hypoxia Status: Acute (3) ESRD (end stage renal disease) on dialysis: Code(s): N18.6 - End stage renal disease; Z99.2 - Dependence on renal dialysis Status: Acute (4) Junctional bradycardia: Code(s): R00.1 - Bradycardia, unspecified Status: Acute Plan Patient has fluid overload due to skipping hemodialysis. The patient had had subsequent hyperkalemia which was treated. Nephrology has been consulted for hemodialysis management with anticipate hemodialysis in a.m.. Fluid overload as resulted in acute hypoxic respiratory failure needing BiPAP support. Patient was pulling large tidal volumes on BiPAP settings of 12/6 subsequently I decrease the patient's pressures to 10/6 with improved tidal volumes to was leave 450 and 600. Will wean BiPAP support after dialysis. Patient has had a junctional bradycardia but he has had this rhythm in the past. I suspect is exacerbated by the patient's hyperkalemia. Will resume the patient's home midodrine and phosphate binder.. If the patient continues to refuse dialysis we may need to have discussion with the patient's family regarding goals of care. Patient does have history of diabetes. Will hold the patient's home Januvia due to mildly low glucoses in the 70s. Will order hypoglycemia protocol. 30 minutes spent in critical care activities Due to a high probability of clinically significant, life threatening deterioration, the patient required my highest level of preparedness to intervene emergently and I personally spent this critical care time directly and personally managing the patient. This critical care time included obtaining a history; examining the patient; pulse oximetry; ordering and review of studies; arranging urgent treatment with development of a management plan; evaluation of patient's response to treatment; frequent reassessment; and discussions with other providers. It was exclusive of separately billable procedures and treating other patients and teaching time. Please see Assessment and Plan section and the rest of the note for further information on patient assessment and treatment. MEDICAL DECISION MAKING NARRATIVE -Spoke with the ED provider in detail regarding patient's evaluation, workup and management -Patient seen and examined at bedside -Collaborated with patient's nurse at the bedside in detail and addressed all concerns -Labs, electrolytes, radiology, investigations and test results reviewed -ED/Consult/Nursing/Ancilliary notes on the chart reviewed and appreciated Hospitalist DIEGO Advance Care Plan I have confirmed that the patient's Advanced Care Plan is present, code status is documented, or surrogate decision maker is listed in patient medical record.: Yes Medication Reconciliation I have utilized all available resources to obtain, update and review the patients current medications (includes all prescriptions, OTC, herbals, cannabis, and nutritional supplements).: Yes
--- NOTE | 2025-03-10 08:25 | ECG_ITS ---
Test Date: 2025-03-10 08:52:50 Measurements Intervals [place] Rate: 45 P: 0 UT: 0 QRS: -61 QRSD: 133 T: -34 QT: 517 QTc: 451 Interpretive Statements ATRIAL FIBRILLATION WITH SLOW VENTRICULAR RESPONSE INTRAVENTRICULAR CONDUCTION DELAY [130+ ms QRS DURATION] POSSIBLE ANTERIOR MYOCARDIAL INFARCTION , OF INDETERMINATE AGE [30 ms Q WAVE IN V3/V4, OR R < 0.2 mV IN V4] Compared to ECG 03/10/2025 02:58:30 Myocardial infarct finding now present Accelerated junctional rhythm no longer present Electronically Signed On 03-10-2025 14:38:12 CDT by Williams Ahn M.D.
--- NOTE | 2025-03-10 10:40 | P.CONNP_ITS ---
Assessment and Plan Assessment and plan (1) ESRD (end stage renal disease): Code(s): N18.6 - End stage renal disease Status: Chronic Assessment and Plan: * HD today * continue M/W/F schedule while hospitalized * follow electrolytes, volume status, and clearance (2) Acute hypoxemic respiratory failure: Code(s): J96.01 - Acute respiratory failure with hypoxia Status: Resolved Assessment and Plan: * hypoxia noted in ER * supplemental oxygen and BiPAP support * presumably due to volume overload (and missed HD treatments * concern for possible pneumonia on admission but this seems less likely * BiPAP support as needed * wean supplemental oxygen (3) Anemia: Code(s): D64.9 - Anemia, unspecified Status: Chronic Assessment and Plan: * due to ESRD and possibly worsened by acute illness * Epogen with HD * follow trend of H/H (4) Fluid overload: Qualifiers: Hypervolemia type: other Qualified Code(s): E87.79 - Other fluid overload Code(s): E87.70 - Fluid overload, unspecified Status: Acute Assessment and Plan: * presumed etiology of #2 * fluid removal as tolerated by hemodynamics * follow respiratory status (5) Altered mental status: Code(s): R41.82 - Altered mental status, unspecified Status: Acute Assessment and Plan: * as noted on presentation * slow improvement noted * suspect secondary to missed dialysis treatments and hypoxa * check CT of head (6) Diabetes mellitus with multiple complications: Code(s): E11.8 - Type 2 diabetes mellitus with unspecified complications Status: Chronic Assessment and Plan: * follow Accu-Cheks * glycemic control per hospitalist I will continue to follow the patient with you while he remains hospitalized and make further recommendations as deemed necessary. Thank you for allowing me to participate in the care of this patient. L History of Present Illness Reason for Consult Consult date: 03/10/25 Reason for consult: end stage renal disease Chief Complaint Chief complaint: ESRD needs HD, BIPAP History of Present Illness Narrative: The patient is a 59-year-old male with a past medical history as outlined below who presented to [facility] Emergency Room from his nursing facility due shortness of breath and lethargy. A great majority of the history that I obtained is from review of the electronic medical record as well as discussion with the physician/nurses involved in the patient's care as is difficult to get a full and complete history from the patient as he is a poor historian at the time of my visit. Apparently, yesterday morning, the half-way staff noted the patient was lethargic and having difficulty breathing. They checked his pulse ox and found that his oxygen saturations were in the 80% range on room air. By report, the patient had refused to go to dialysis for the last several days although the exact reason why is not clear. Due to these findings/information, EMS was summoned and transferred to the ER for further assessment. On arrival to the ER, he was noted to be hypoxic and tachypneic with respiratory rate in the upper 20s and 30s. He was placed on BiPAP with improvement in his respiratory status. ABG demonstrated respiratory alkalosis with persistent hypoxia on 4 L nasal cannula. Routine blood work also noted hyperkalemia as well and IV medical management was initiated. Imaging studies were notable for a CXR with right perihilar airspace disease suspicious for pneumonia and a CTA of his chest with no pulmonary embolus or thoracic aortic dissection but significant enlargement of the main pulmonary artery, consistent with pulmonary hypertension; redemonstration of cardiomegaly, xtensive mediastinal and supraclavicular lymphadenopathy (unchanged from prior), and bibasilar consolidation with small bilateral pleural effusions. After appropriate cultures were obtained, he was initiated on IV antibiotcs for possible pneumonia. He was weaned down to nasal cannula in the ER and subsequently admitted for further evaluation and therapy On arrival to the floor, he was noted be hypoxic again at 79% on 4L oxygen. He was placed back on BiPAP with improvement in his oxygen saturations. His antibiotics were placed on hold since he was afebrile and without a significant WBC. Renal consultation was requested due to his end-stage renal disease. The patient normally dialyzes on a Saturday, Saturday, Saturday dialysis schedule at [facility] under the care of Dr. Jimmie Almodovar The patient did not go to his outpatient dialysis treatment today due to his nursing facility sending him to the ER for evaluation for the above-mentioned complaints.. There is some concern that his hypoxia may be partly related to fluid retention since his last dialysis treatment was on 03/03/25 (he missed treatment on 03/05 and 03/08). He is a bit more responsive when seen (nods his head to yes/no questions). Currently, at the time my visit, he is not in any acute distress and is tolerating dialysis at the time of my visit (seen on HD at 10:30AM). Review of Systems 2 Review of Systems: As per HPI. [facility] Past Medical History Medical History (Updated 03/11/25 @ 17:15 by Isi Cuadra PA-C) Iron deficiency anemia MRSA infection Clostridium difficile diarrhea Paroxysmal atrial fibrillation Transient atrial fibrillation following bypass surgery. Coronary artery disease History of multiple stents and 4 vessel bypass. Type 2 diabetes mellitus Hyperlipidemia End-stage renal disease on hemodialysis Combined systolic and diastolic congestive heart failure Anxiety and depression Obstructive sleep apnea does not use a CPAP Anemia of chronic disease Diabetic nephropathy Diabetic peripheral neuropathy Arthritis Surgical History Surgical History History of right below knee amputation History of five vessel coronary artery bypass (2018) [facility] History of cataract extraction with lens replacement History of coronary artery stent placement History of cardiac catheterization History of left below knee amputation History of amputation of toe left 5th toe 2013 small toe on the right amputated Family History Family History Sibling Patient's sister is Diabetes mellitus Sister Acute myocardial infarction Three brothers and 2 sisters History of blood clots Sister Abdominal aortic aneurysm Sister Dementia Brother COPD (chronic obstructive pulmonary disease) Brother Father Acute myocardial infarction, Onset Age: 65 Mother History of blood clots Hypertension, Onset Age: 80 Social History Social History (Updated 03/10/25 @ 08:12 by Bianka Hall DO) Social History: Surrogate medical decision maker: Melodie Roca (niece) or Alejandra Murray (sister). Code status: DNR/DNI Smoking packs per day: 0.25 Smoking cigarettes per day: 5.0 Years smoked: 30 Smoking pack-years: 7.50 Smoking status: Former smoker Alcohol intake: unknown Drinks per week: 2 Alcohol use details: Social alcohol use. Substance use: unknown Substance use type: marijuana Last use: 2018 Do You Feel Safe in your Home?: Yes Lack of Transportation: No Lack of Food: Never True Current Housing: I Have Housing Concerned About Future Housing: No Difficulty Paying Gas/Electric Bills: No Difficulty Paying for Meds: No Currently Unemployed: No Education: Don't Know Difficulty w/ Childcare or Family Care: No Additional living arrangements comments: [facility]. Additional occupation/education comments: Disabled. Spiritual care concerns: No Meds Home Medications and Allergies Home Medications ?Medication ?Instructions ?Recorded ?Confirmed ?Type ferrous sulfate 325 mg (65 mg 325 mg PO DAILY 06/01/20 03/10/25 History iron) tablet multivitamin 1 tablet PO DAILY 06/01/20 03/10/25 History nitroglycerin 0.4 mg sublingual 0.4 mg sublingual Q5-15M PRN Chest 06/01/20 03/10/25 History tablet Pain omega-3 fatty acids-fish oil 360 1 cap PO DAILY 06/01/20 03/10/25 History mg-1,200 mg capsule atorvastatin 40 mg tablet (Lipitor) 40 mg PO HS 12/23/20 03/10/25 History folic acid 1 mg tablet 1 mg PO DAILY 12/23/20 03/10/25 History gabapentin 100 mg tablet 200 mg PO HS 12/23/20 03/10/25 History sevelamer carbonate 800 mg tablet 800 mg PO DAILY@1700 12/23/20 03/10/25 History tamsulosin 0.4 mg capsule (Flomax) 0.4 mg PO DAILY 12/23/20 03/10/25 History linagliptin 5 mg tablet (Tradjenta) 5 mg PO DAILY 01/13/23 03/10/25 History mirtazapine 15 mg tablet 15 mg PO HS 01/13/23 03/10/25 History sertraline 50 mg tablet 25 mg PO HS 01/13/23 03/10/25 History meclizine 25 mg tablet 25 mg PO Q8H PRN Dizziness 09/17/23 03/10/25 History midodrine 10 mg tablet 10 mg PO BID 09/17/23 03/10/25 History acetaminophen 325 mg tablet 650 mg PO Q6H PRN Pain (Scale 10/29/23 03/10/25 History (Tylenol) Score 1-3) naloxone 4 mg/actuation nasal spray 1 spray intranasal Q3M PRN Opioid 10/29/23 03/10/25 History Overdose sennosides 8.6 mg-docusate sodium 1 tablet PO BID PRN Constipation 10/29/23 03/10/25 History 50 mg tablet (Senna Plus) guaifenesin 100 mg/5 mL oral syrup 600 mg PO Q8H PRN Cough 03/03/24 03/10/25 History lanolin alcohols-mineral 1 applic topical QPM 03/03/24 03/10/25 History oil-w.petrolatum-ceresin topical cream (Eucerin topical cream) diphenoxylate-atropine 2.5 2 tablet PO TID PRN Diarrhea #15 03/06/24 03/10/25 Rx mg-0.025 mg tablet (Lomotil) tabs tramadol 50 mg tablet 50 mg PO Q4H PRN Pain (Scale Score 03/06/24 03/10/25 Rx 4-6) #15 tabs ascorbic acid (vitamin C) 500 mg 500 mg PO BID 03/10/25 03/10/25 History tablet famotidine 20 mg tablet 20 mg PO BID 03/10/25 03/10/25 History mirtazapine 7.5 mg tablet 7.5 mg PO HS 03/10/25 03/10/25 History nut.tx.imp.renal fxn,lac-reduc 1 ea PO HS 03/10/25 03/10/25 History 0.08 gram-1.8 kcal/mL oral liquid polyethylene glycol 3350 17 gram 17 g PO DAILY PRN constipation 03/10/25 03/10/25 History oral powder packet tizanidine 2 mg tablet 2 mg PO BID 03/10/25 03/10/25 History vitamin B complex-vitamin C-folic 1 tablet PO DAILY 03/10/25 03/10/25 History acid 0.8 mg tablet (Nephro-[place]) zinc sulfate 220 mg capsule 220 mg PO DAILY 03/10/25 03/10/25 History aspirin 325 mg tablet,delayed 325 mg PO QAM #30 tabs 03/17/25 Rx release Allergies Allergy/AdvReac Type Severity Reaction Status Date / Time Penicillins Allergy Unknown Unknown Verified 12/21/24 09:37 bee venom protein (honey bee) Allergy Swelling Verified 12/21/24 09:37 Vital Signs Vital Signs Temp Pulse Resp BP Pulse Ox O2 Del Method O2 Flow Rate 03/10/25 10:30 41 L 109/55 L 03/10/25 10:12 39 L 98/49 L 03/10/25 10:05 03/10/25 10:05 96.8 F L 39 L 16 102/54 L 94 03/10/25 08:57 43 L 23 H 100 BiPAP 03/10/25 07:37 97.7 F 53 L 14 145/52 H 100 03/10/25 06:10 56 L 03/10/25 04:00 59 L 03/10/25 03:07 98.4 F 63 17 147/52 H 99 03/10/25 02:00 65 03/10/25 01:47 98 21 H 97 BiPAP 03/10/25 00:00 75 03/09/25 23:50 91 24 H 96 BiPAP 03/09/25 22:53 98.5 F 77 17 116/50 L 93 03/09/25 22:33 98.5 F 80 23 H 122/64 96 03/09/25 21:31 73 21 H 117/52 L 96 03/09/25 21:30 88 25 H 96 BiPAP 03/09/25 20:41 77 23 H 110/47 L 92 03/09/25 20:01 77 25 H 117/46 L 03/09/25 20:00 74 22 H 03/09/25 19:45 77 27 H 03/09/25 19:32 76 26 H 03/09/25 19:31 77 24 H 114/73 03/09/25 19:15 79 27 H 96 03/09/25 19:01 80 28 H 111/99 H 03/09/25 19:00 79 26 H 03/09/25 19:00 80 31 H 95 BiPAP 03/09/25 18:59 91 Nasal Cannula 4 03/09/25 18:54 80 30 H 89 L 03/09/25 18:33 81 19 91 03/09/25 18:30 82 34 H 121/103 H 03/09/25 18:16 79 30 H 93 03/09/25 18:02 72 29 H 03/09/25 17:45 72 32 H 03/09/25 17:45 71 30 H 120/57 L 91 03/09/25 17:31 72 33 H 120/57 L 98 03/09/25 17:30 73 33 H 03/09/25 17:15 92 22 H 92 03/09/25 17:01 97 23 H 119/70 03/09/25 17:00 94 39 H 90 03/09/25 16:45 79 29 H 91 03/09/25 16:43 81 36 H 116/56 L 92 03/09/25 16:41 90 03/09/25 16:41 100 12 116/56 L 92 03/09/25 16:01 119/48 L 03/09/25 15:31 67 26 H 126/44 L 03/09/25 15:30 69 26 H 03/09/25 15:15 68 18 95 03/09/25 15:00 61 27 H 98 03/09/25 14:47 66 22 H 122/53 L 98 03/09/25 14:46 63 23 H 98 03/09/25 12:54 70 19 104/72 97 03/09/25 12:51 96 Nasal Cannula 3 03/09/25 12:08 95 Nasal Cannula 3 03/09/25 11:42 98.6 F 71 21 H 125/56 L 89 L Room Air Exam 2 Narrative: GENERAL APPEARANCE: chronically ill-appearing male in no acute distress HEENT: normocephalic, atraumatic, normal conjunctiva and sclera, nares patient NECK: no lymphadenopathy, thyromegaly, or JVD MOUTH: normal lips, teeth, and gums; BiPAP in place CARDIOVASCULAR: RRR, normal S1 and S2, no rub detected RESPIRATORY: scattered crackles noted; decreased at bases ABDOMEN: soft, nontender, nondistended, positive bowel sounds present EXTREMITIES: no evidence of cyanosis, clubbing, or edema; s/p bilateral AKAs NEUROLOGICAL: awakens with stimulation; no focal deficits noted Results Lab Results 03/17/25 09:27 03/17/25 09:27 Lab results: Most recent lab results ABG pH 7.466 (7.350-7.450) H 03/09/25 18:40 ABG pCO2 33.9 mmHg (35.0-45.0) L 03/09/25 18:40 ABG pO2 62.4 mmHg (80.0-100.0) L 03/09/25 18:40 ABG HCO3 23.9 mEq/l (22.0-26.0) 03/09/25 18:40 ABG O2 Saturation 93.4 % (95.0-100.0) L 03/09/25 18:40 Calcium 8.4 mg/dL (8.4-10.2) 03/10/25 03:58 Phosphorus 4.8 mg/dL (2.5-4.5) H 03/10/25 03:58 Magnesium 2.2 mg/dL (1.6-2.3) 03/10/25 03:58
[2025-03-10] MEDS: EPOETIN ALFA-EPBX 10,000 UNITS/ML VIAL 10000 UNITS IV PUSH (11:42)
[2025-03-10] MEDS: SODIUM CHLORIDE 0.9% IV 1,000 ML 999 ML IV CONT (11:43)
[2025-03-10] MEDS: DEXTROSE 50% 25 GM/50 ML SYRINGE IV PUSH ×2 (14:51→19:06)
--- NOTE | 2025-03-10 14:54 | PCRCNOTE ---
[facility] called for ABG, a second therapist was called to attempt obtaining the ABG.
--- NOTE | 2025-03-10 14:57 | PM.CNCAR ---
Assessment and Plan Assessment and plan (1) Bradycardia: Code(s): R00.1 - Bradycardia, unspecified Status: Acute Plan 59-year-old male with history of CAD status post CABG x 4 in 2018 (torres to LAD, sequential SVG graft to PDA, RPLV, left radial to LCX), post op AFib but without recurrence, might chronic systolic and diastolic heart failure (LVEF 50-55% in 03/2024), history of smoking, hypertension, dyslipidemia, CAD status post bilateral BKA, diabetes mellitus, diabetic peripheral neuropathy, anxiety, depression, obstructive sleep apnea not using CPAP, ESRD requiring HD, chronic anemia with lethargy and shortness of breath Sinus bradycardia-asymptomatic Acute hypoxic respiratory failure causing lethargy-improved with BiPAP Shortness of breath-improved with BiPAP CAD status post CABG x4-no angina Chronic systolic and diastolic heart failure with LVEF 50-55% in 03/2025 Plan: -Patient appears to be asymptomatic from bradycardia. He had prior workup with event monitor for 13 days in 03/2024 which showed sinus bradycardia with 1st and second-degree AV block, PACs, PVCs, and no high degree block. Review of EKGs during this admission shows sinus rhythm with first-degree AV block; cannot rule out junctional rhythm with certainty. Recommend continue EP evaluation as outpatient. Event monitor at discharge -Patient had lethargy prior to presentation. This is most likely secondary to hypoxia as his mentation is improved with BiPAP -Avoid AV harry blocking agents -Check TSH and free T4 -TTE -Monitor on telemetry -Continue aspirin, statin -Not on guideline directed medical therapy due to low blood pressure. He is on midodrine at home -Check and replace electrolytes to keep potassium greater than 4 and magnesium greater than 2 -Management of other medical problems per primary team History of Present Illness History of Present Illness Consult date/time: 03/10/25 14:57 Reason For Visit: ESRD needs HD, BIPAP Narrative: 59-year-old male with history of CAD status post CABG x 4 in 2018 (torres to LAD, sequential SVG graft to PDA, RPLV, left radial to LCX), post op AFib but without recurrence, might chronic systolic and diastolic heart failure (LVEF 55-60% in 03/2024), history of smoking, hypertension, dyslipidemia, CAD status post bilateral BKA, diabetes mellitus, diabetic peripheral neuropathy, anxiety, depression, obstructive sleep apnea not using CPAP, ESRD requiring HD, chronic anemia presented to the ER from [facility] due to lethargy and shortness of breath. On 03/09 group home staff noticed patient to be short of breath and lethargic. He checked his pulse and his O2 sat was in the 80s on room air. Patient had refused dialysis prior to this for 60s. In the ER patient was noted to be tachycardic to a 20s-30s and hypoxic. He was placed on BiPAP with improvement in respiratory status. He was noted to have hyperkalemia and was given bicarb, insulin, dextrose. He was noted to be bradycardic and Cardiology is consulted for further recommendations. Patient has ongoing shortness of breath for which he is on BiPAP. He denies any chest pain, dizziness, lightheadedness, palpitations, extremity swelling, abdominal bloating, recent weight gain, presyncope, syncope, fever, chills, headache. Telemetry shows sinus bradycardia. Workup: Hemoglobin: 8 Potassium: 5.5 Creatinine: 9.57 D-dimer: 1.92 Troponin: 0.042, 0.047 BNP: More than 30,000 EKG: Sinus bradycardia with first-degree AV block, rate of 45, intraventricular conduction delay with QRS of 133 milliseconds, possible anterior [place] age indeterminate Chest x-ray:1: Right perihilar airspace disease, suspicious for pneumonia. 2: Small right pleural effusion. CT chest: No PE or aortic dissection. Significant enlargement of the main pulmonary artery, consistent with pulmonary hypertension. Redemonstration of cardiomegaly. Extensive mediastinal and supraclavicular lymphadenopathy, unchanged from prior. Bibasilar consolidation with small bilateral pleural effusions. Prior cardiac workup: Review of prior EKG shows sinus bradycardia with first-degree AV block Event monitor for 30 days in 03/2024: Showed sinus rhythm with heart rate ranging between 49-119 and an average heart rate of 64 B p.m., lowest heart rate 55, 5% PACs, 3% PVCs, first-degree AV block and second-degree type 1 block noted. TTE in 03/2024: LVEF 50-55%, abnormal diastolic function, moderately reduced RV systolic function, no significant valvular pathology Lexiscan in 2020: Negative for ischemia Review of Systems Review of Systems: Complete review of systems was performed and pertinent positives are reported in the [facility] Past Medical History Medical History (Updated 03/10/25 @ 08:30 by Bianka Hall DO) Iron deficiency anemia MRSA infection Clostridium difficile diarrhea Paroxysmal atrial fibrillation Transient atrial fibrillation following bypass surgery. Coronary artery disease History of multiple stents and 4 vessel bypass. Type 2 diabetes mellitus Hyperlipidemia End-stage renal disease on hemodialysis Combined systolic and diastolic congestive heart failure Anxiety and depression Obstructive sleep apnea does not use a CPAP Anemia of chronic disease Diabetic nephropathy Diabetic peripheral neuropathy Arthritis Surgical History Surgical History History of right below knee amputation History of five vessel coronary artery bypass (2018) [facility] History of cataract extraction with lens replacement History of coronary artery stent placement History of cardiac catheterization History of left below knee amputation History of amputation of toe left 5th toe 2013 small toe on the right amputated Family History Family History Sibling Patient's sister is Diabetes mellitus Sister Acute myocardial infarction Three brothers and 2 sisters History of blood clots Sister Abdominal aortic aneurysm Sister Dementia Brother COPD (chronic obstructive pulmonary disease) Brother Father Acute myocardial infarction, Onset Age: 65 Mother History of blood clots Hypertension, Onset Age: 80 Social History Social History (Updated 03/10/25 @ 08:12 by Bianka Hall DO) Social History: Surrogate medical decision maker: Melodie Roca (niece) or Alejandrajame Murray (sister). Code status: DNR/DNI Smoking packs per day: 0.25 Smoking cigarettes per day: 5.0 Years smoked: 30 Smoking pack-years: 7.50 Smoking status: Former smoker Alcohol intake: unknown Drinks per week: 2 Alcohol use details: Social alcohol use. Substance use: unknown Substance use type: marijuana Last use: 2018 Do You Feel Safe in your Home?: Yes Lack of Transportation: No Lack of Food: Never True Current Housing: I Have Housing Concerned About Future Housing: No Difficulty Paying Gas/Electric Bills: No Difficulty Paying for Meds: No Currently Unemployed: No Education: Don't Know Difficulty w/ Childcare or Family Care: No Additional living arrangements comments: [facility]. Additional occupation/education comments: Disabled. Spiritual care concerns: No Meds Home Medications and Allergies Home Medications ?Medication ?Instructions ?Recorded ?Confirmed ?Type ferrous sulfate 325 mg (65 mg 325 mg PO DAILY 06/01/20 03/10/25 History iron) tablet multivitamin 1 tablet PO DAILY 06/01/20 03/10/25 History nitroglycerin 0.4 mg sublingual 0.4 mg sublingual Q5-15M PRN Chest 06/01/20 03/10/25 History tablet Pain omega-3 fatty acids-fish oil 360 1 cap PO DAILY 06/01/20 03/10/25 History mg-1,200 mg capsule atorvastatin 40 mg tablet (Lipitor) 40 mg PO HS 12/23/20 03/10/25 History folic acid 1 mg tablet 1 mg PO DAILY 12/23/20 03/10/25 History gabapentin 100 mg tablet 200 mg PO HS 12/23/20 03/10/25 History sevelamer carbonate 800 mg tablet 800 mg PO DAILY@1700 12/23/20 03/10/25 History tamsulosin 0.4 mg capsule (Flomax) 0.4 mg PO DAILY 12/23/20 03/10/25 History linagliptin 5 mg tablet (Tradjenta) 5 mg PO DAILY 01/13/23 03/10/25 History mirtazapine 15 mg tablet 15 mg PO HS 01/13/23 03/10/25 History sertraline 50 mg tablet 25 mg PO HS 01/13/23 03/10/25 History aspirin 81 mg tablet 81 mg PO DAILY 09/17/23 03/10/25 History meclizine 25 mg tablet 25 mg PO Q8H PRN Dizziness 09/17/23 03/10/25 History midodrine 10 mg tablet 10 mg PO BID 09/17/23 03/10/25 History acetaminophen 325 mg tablet 650 mg PO Q6H PRN Pain (Scale 10/29/23 03/10/25 History (Tylenol) Score 1-3) naloxone 4 mg/actuation nasal spray 1 spray intranasal Q3M PRN Opioid 10/29/23 03/10/25 History Overdose sennosides 8.6 mg-docusate sodium 1 tablet PO BID PRN Constipation 10/29/23 03/10/25 History 50 mg tablet (Senna Plus) guaifenesin 100 mg/5 mL oral syrup 600 mg PO Q8H PRN Cough 03/03/24 03/10/25 History lanolin alcohols-mineral 1 applic topical QPM 03/03/24 03/10/25 History oil-w.petrolatum-ceresin topical cream (Eucerin topical cream) diphenoxylate-atropine 2.5 2 tablet PO TID PRN Diarrhea #15 03/06/24 03/10/25 Rx mg-0.025 mg tablet (Lomotil) tabs tramadol 50 mg tablet 50 mg PO Q4H PRN Pain (Scale Score 03/06/24 03/10/25 Rx 4-6) #15 tabs tizanidine 2 mg tablet 2 mg PO TID 10/19/24 03/10/25 History ascorbic acid (vitamin C) 500 mg 500 mg PO BID 03/10/25 03/10/25 History tablet famotidine 20 mg tablet 20 mg PO BID 03/10/25 03/10/25 History mirtazapine 7.5 mg tablet 7.5 mg PO HS 03/10/25 03/10/25 History nut.tx.imp.renal fxn,lac-reduc 1 ea PO HS 03/10/25 03/10/25 History 0.08 gram-1.8 kcal/mL oral liquid polyethylene glycol 3350 17 gram 17 g PO DAILY PRN constipation 03/10/25 03/10/25 History oral powder packet tizanidine 2 mg tablet 2 mg PO BID 03/10/25 03/10/25 History vitamin B complex-vitamin C-folic 1 tablet PO DAILY 03/10/25 03/10/25 History acid 0.8 mg tablet (Nephro-[place]) zinc sulfate 220 mg capsule 220 mg PO DAILY 03/10/25 03/10/25 History Allergies Allergy/AdvReac Type Severity Reaction Status Date / Time Penicillins Allergy Unknown Unknown Verified 12/21/24 09:37 bee venom protein (honey bee) Allergy Swelling Verified 12/21/24 09:37 Vital Signs Vital Signs - 24 hr 03/09/25 15:00 03/09/25 15:15 03/09/25 15:30 Temperature Pulse Rate 61 68 69 Respiratory Rate 27 H 18 26 H Blood Pressure Pulse Oximetry 98 95 Oxygen Delivery Oxygen Flow Rate Fraction of Inspired Oxygen 03/09/25 15:31 03/09/25 16:01 03/09/25 16:41 Temperature Pulse Rate 67 100 Respiratory Rate 26 H 12 Blood Pressure 126/44 L 119/48 L 116/56 L Pulse Oximetry 92 Oxygen Delivery Oxygen Flow Rate Fraction of Inspired Oxygen 03/09/25 16:41 03/09/25 16:43 03/09/25 16:45 Temperature Pulse Rate 81 79 Respiratory Rate 36 H 29 H Blood Pressure 116/56 L Pulse Oximetry 90 92 91 Oxygen Delivery Oxygen Flow Rate Fraction of Inspired Oxygen 03/09/25 17:00 03/09/25 17:01 03/09/25 17:15 Temperature Pulse Rate 94 97 92 Respiratory Rate 39 H 23 H 22 H Blood Pressure 119/70 Pulse Oximetry 90 92 Oxygen Delivery Oxygen Flow Rate Fraction of Inspired Oxygen 03/09/25 17:30 03/09/25 17:31 03/09/25 17:45 Temperature Pulse Rate 73 72 71 Respiratory Rate 33 H 33 H 30 H Blood Pressure 120/57 L 120/57 L Pulse Oximetry 98 91 Oxygen Delivery Oxygen Flow Rate Fraction of Inspired Oxygen 03/09/25 17:45 03/09/25 18:02 03/09/25 18:16 Temperature Pulse Rate 72 72 79 Respiratory Rate 32 H 29 H 30 H Blood Pressure Pulse Oximetry 93 Oxygen Delivery Oxygen Flow Rate Fraction of Inspired Oxygen 03/09/25 18:30 03/09/25 18:33 03/09/25 18:54 Temperature Pulse Rate 82 81 80 Respiratory Rate 34 H 19 30 H Blood Pressure 121/103 H Pulse Oximetry 91 89 L Oxygen Delivery Oxygen Flow Rate Fraction of Inspired Oxygen 03/09/25 18:59 03/09/25 19:00 03/09/25 19:00 Temperature Pulse Rate 80 79 Respiratory Rate 31 H 26 H Blood Pressure Pulse Oximetry 91 95 Oxygen Delivery Nasal Cannula BiPAP Oxygen Flow Rate 4 Fraction of Inspired Oxygen 03/09/25 19:01 03/09/25 19:15 03/09/25 19:31 Temperature Pulse Rate 80 79 77 Respiratory Rate 28 H 27 H 24 H Blood Pressure 111/99 H 114/73 Pulse Oximetry 96 Oxygen Delivery Oxygen Flow Rate Fraction of Inspired Oxygen 03/09/25 19:32 03/09/25 19:45 03/09/25 20:00 Temperature Pulse Rate 76 77 74 Respiratory Rate 26 H 27 H 22 H Blood Pressure Pulse Oximetry Oxygen Delivery Oxygen Flow Rate Fraction of Inspired Oxygen 03/09/25 20:01 03/09/25 20:41 03/09/25 21:30 Temperature Pulse Rate 77 77 88 Respiratory Rate 25 H 23 H 25 H Blood Pressure 117/46 L 110/47 L Pulse Oximetry 92 96 Oxygen Delivery BiPAP Oxygen Flow Rate Fraction of Inspired Oxygen 03/09/25 21:31 03/09/25 22:33 03/09/25 22:53 Temperature 36.9 C 36.9 C Pulse Rate 73 80 77 Respiratory Rate 21 H 23 H 17 Blood Pressure 117/52 L 122/64 116/50 L Pulse Oximetry 96 96 93 Oxygen Delivery Oxygen Flow Rate Fraction of Inspired Oxygen 03/09/25 23:50 03/10/25 00:00 03/10/25 01:47 Temperature Pulse Rate 91 75 98 Respiratory Rate 24 H 21 H Blood Pressure Pulse Oximetry 96 97 Oxygen Delivery BiPAP BiPAP Oxygen Flow Rate Fraction of Inspired Oxygen 03/10/25 02:00 03/10/25 03:07 03/10/25 04:00 Temperature 36.9 C Pulse Rate 65 63 59 L Respiratory Rate 17 Blood Pressure 147/52 H Pulse Oximetry 99 Oxygen Delivery Oxygen Flow Rate Fraction of Inspired Oxygen 03/10/25 06:10 03/10/25 07:37 03/10/25 08:00 Temperature 36.5 C Pulse Rate 56 L 53 L Respiratory Rate 14 Blood Pressure 145/52 H Pulse Oximetry 100 94 Oxygen Delivery BiPAP Oxygen Flow Rate Fraction of Inspired Oxygen 50 03/10/25 08:00 03/10/25 08:57 03/10/25 10:00 Temperature Pulse Rate 57 L 43 L 52 L Respiratory Rate 23 H Blood Pressure Pulse Oximetry 100 Oxygen Delivery BiPAP Oxygen Flow Rate Fraction of Inspired Oxygen 03/10/25 10:05 03/10/25 10:05 03/10/25 10:12 Temperature 36.0 C L Pulse Rate 39 L 39 L Respiratory Rate 16 Blood Pressure 102/54 L 98/49 L Pulse Oximetry 94 Oxygen Delivery Oxygen Flow Rate Fraction of Inspired Oxygen 50 03/10/25 10:30 03/10/25 10:45 03/10/25 11:00 Temperature Pulse Rate 41 L 62 58 L Respiratory Rate Blood Pressure 109/55 L 118/54 L 109/51 L Pulse Oximetry Oxygen Delivery Oxygen Flow Rate Fraction of Inspired Oxygen 03/10/25 11:15 03/10/25 11:30 03/10/25 11:45 Temperature Pulse Rate 61 63 62 Respiratory Rate Blood Pressure 105/55 L 110/54 L 103/57 L Pulse Oximetry Oxygen Delivery Oxygen Flow Rate Fraction of Inspired Oxygen 03/10/25 12:00 03/10/25 12:00 03/10/25 12:15 Temperature Pulse Rate 58 L 61 62 Respiratory Rate Blood Pressure 102/51 L 111/53 L Pulse Oximetry Oxygen Delivery Oxygen Flow Rate Fraction of Inspired Oxygen 03/10/25 12:30 03/10/25 12:45 03/10/25 13:00 Temperature Pulse Rate 41 L 60 61 Respiratory Rate Blood Pressure 106/48 L 103/53 L 108/53 L Pulse Oximetry Oxygen Delivery Oxygen Flow Rate Fraction of Inspired Oxygen 03/10/25 13:15 03/10/25 13:30 03/10/25 13:44 Temperature Pulse Rate 56 L 68 72 Respiratory Rate Blood Pressure 109/56 L 132/56 L 132/59 L Pulse Oximetry Oxygen Delivery Oxygen Flow Rate Fraction of Inspired Oxygen 03/10/25 13:55 03/10/25 14:45 Temperature 36.3 C L 35.9 C L Pulse Rate 70 63 Respiratory Rate 16 20 Blood Pressure 121/62 130/49 L Pulse Oximetry 98 99 Oxygen Delivery Oxygen Flow Rate Fraction of Inspired Oxygen Exam Narrative: General: Alert oriented x3, no acute distress Neck: Supple, no JVD Chest: Bilaterally clear to auscultation, no rales or rhonchi Cardiac: S1, S2 +, regular rate, regular rhythm, no murmurs or rubs Extremities: No pedal edema, no skin rash Neurologic: Alert and oriented x3, no focal neurological deficits Results Labs and Meds 03/10/25 03:58 03/10/25 03:58 Lab results: Cardiac Enzymes 03/10/25 Range/Units 03:58 AST 17 (17-59) U/L Coagulation 03/09/25 Range/Units 17:10 PT 26.8 H (11.1-14.7) Seconds APTT 44.5 H (22.3-36.8) Seconds CBC 03/10/25 Range/Units 03:58 WBC 6.5 (4.5-10.0) K/mm3 RBC 2.50 L (4.6-6.20) M/mm3 Hgb 8.0 L (14.0-18.0) g/dL Hct 25.9 L (42.0-52.0) % Plt Count 53 L (150-375) k/mm3 Lymph # (Auto) 0.29 L (0.9-3.2) K/mm3 Thomas # (Auto) 0.5 (0.1-0.6) K/mm3 Eos # (Auto) 0.0 (0-0.3) K/mm3 Baso # (Auto) 0.0 (0.0-0.1) K/mm3 Comprehensive Metabolic Panel 03/09/25 03/10/25 Range/Units 16:26 03:58 Sodium 141 140 (137-145) mmol/L Potassium 5.0 5.5 H (3.4-5.0) mmol/L Chloride 102 101 (98-107) mmol/L Carbon Dioxide 27 25 (22-30) mmol/L BUN 80 H 87 H (9-20) mg/dL Creatinine 8.71 H 9.57 H (0.7-1.3) mg/dL Glucose 100 77 (65-110) mg/dL Calcium 8.6 8.4 (8.4-10.2) mg/dL AST 17 (17-59) U/L ALT 15 (6-50) U/L Alkaline Phosphatase 128 H (38-126) U/L Total Protein 6.5 (6.3-8.2) g/dL Albumin 2.9 L (3.5-5.1) g/dL Intake and Output 03/09/25 03/10/25 03/10/25 23:59 07:59 15:59 Intake Total 250 Output Total 1999 Balance 250 -1999 Intake: IV 250 Azithromycin IV 500 mg In 250 Sodium Chloride 0.9% IV 250 ml @ 250 mls/hr IVPB ONCE STA Rx#: [id number] Output: Net UF Removed 1999 Other: # Unmeasured Voids 2 Patient Weight 03/10/25 23:59 Weight 92.4 kg
[2025-03-10 15:47] LABS: Anion Gap 11 mmol/L (4-12); Blood Urea Nitrogen 33 mg/dL (9-20); Calcium 8.5 mg/dL (8.4-10.2); Carbon Dioxide 25 mmol/L (22-30); Chloride 105 mmol/L (98-107); Estimated CRCL calculation 18 ml/min; Estimated Glomerular Filt Rate 14; Glucose 97 mg/dL (65-110); Potassium 3.9 mmol/L (3.4-5.0); Sodium 141 mmol/L (137-145)
--- NOTE | 2025-03-10 15:51 | P.PNIM_ITS ---
Progress Note: A&P Assessment and Plan (1) Fluid overload: Code(s): E87.70 - Fluid overload, unspecified Status: Acute (2) Acute respiratory failure with hypoxia: Code(s): J96.01 - Acute respiratory failure with hypoxia Status: Acute (3) ESRD (end stage renal disease) on dialysis: Code(s): N18.6 - End stage renal disease; Z99.2 - Dependence on renal dialysis Status: Acute (4) Junctional bradycardia: Code(s): R00.1 - Bradycardia, unspecified Status: Acute Plan Patient has fluid overload due to skipping hemodialysis. The patient had had subsequent hyperkalemia which was treated. Nephrology has been consulted for hemodialysis management with anticipate hemodialysis in a.m.. Fluid overload as resulted in acute hypoxic respiratory failure needing BiPAP support. Patient was pulling large tidal volumes on BiPAP settings of 12/6 subsequently I decrease the patient's pressures to 10/6 with improved tidal volumes to was leave 450 and 600. Will wean BiPAP support after dialysis. Patient has had a junctional bradycardia but he has had this rhythm in the past. I suspect is exacerbated by the patient's hyperkalemia. Will resume the patient's home midodrine and phosphate binder.. If the patient continues to refuse dialysis we may need to have discussion with the patient's family regarding goals of care. Patient does have history of diabetes. Will hold the patient's home Januvia due to mildly low glucoses in the 70s. Will order hypoglycemia protocol. patient with history of ESRD on HD, patient had been refusing HD for last 6 days and became volume overloaded, short of breath, resulting AMS, patient was sent to ER and was found to have elevated BUN/Scr 87/9.57 with potassium of 5.5, patient was seen HD center currently having dialysis, still quite confused and unable to provide any history or ROS, suspect patient acute mental statue is stemming from missing, dialysis resulting elevated BUN/Scr, volume overload and shortness of breath. patient symptoms will improve after dialysis, will monitor. Subjective Date/time seen: 03/10/25 15:51 Interval history: Shortness of breath H&P-Narrative: 59-year-old male with a past medical history end-stage renal disease on hemodialysis, chronic anemia, combined systolic and diastolic heart failure, coronary artery disease status post 4 vessel bypass, hypertension, hyperlipidemia, type 2 diabetes mellitus and bilateral lower extremity [id number] amputation among other comorbidities who presented to the ER from [facility] due to shortness of breath and lethargy. A entirety of history was obtained from review of past medical records ER physician report and detention report as the patient is a poor historian. And on the detention staff noted the patient was lethargic and having difficulty breathing they checked his pulse ox any satting 80's on room air. The patient had refused to go to dialysis for 6 days. Patient was alert oriented to in the ER. He was hypoxic in the ER and tachypneic with respiratory rate in the upper 20s and 30s. He was placed on BiPAP with improvement in his respiratory status. ABG demonstrated respiratory alkalosis with persistent hypoxia on 4 L nasal cannula. Patient was hyperkalemic on presentation to the ER and received bicarb insulin dextrose. He had also received a L of IV fluids. The patient developed increasing respiratory distress and placed on BiPAP. The patient's was transferred up to the eye IMU and when he arrived to the IMU he was back on nasal cannula for transport. He arrived to the IMU was satting 79%. He was placed back on BiPAP. At the time my evaluation patient was on BiPAP 12/6 with a rate of 12 than 50% FiO2 with oxygen saturations of 96%. Patient was pulling large tidal volumes of 600-800. The patient was unable to provide any history due to being confused. Patient's baseline mentation is unknown. The patient had initially received antibiotics for possible pneumonia in the ER but after imaging and affect the patient did not have a white count or fever antibiotics were discontinued. patient with history of ESRD on HD, patient had been refusing HD for last 6 days and became volume overloaded, short of breath, resulting AMS, patient was sent to ER and was found to have elevated BUN/Scr 87/9.57 with potassium of 5.5, patient was seen HD center currently having dialysis, still quite confused and unable to provide any history or ROS, suspect patient acute mental statue is stemming from missing, dialysis resulting elevated BUN/Scr, volume overload and shortness of breath. patient symptoms will improve after dialysis, will monitor. Review of Systems Review of Systems: Limited due to patient condition/BiPAP and altered mental status Exam Narrative: Patient is comfortable, NAD HEENT: eyes are clear and none icteric LUNGS: Bilateral fair entry with rales and rhonchi HEART: RR S1S2 ABD: BS+, Soft and nontender Lower extremities: no edema SKIN: nonjaundiced Neuro: grossly intact. Confused Objective Data Vital Signs Vital Signs: Vital Signs - 24 hr 03/09/25 16:01 03/09/25 16:41 03/09/25 16:41 Temperature Pulse Rate 100 Respiratory Rate 12 Blood Pressure 119/48 L 116/56 L Pulse Oximetry 92 90 Oxygen Delivery Oxygen Flow Rate Fraction of Inspired Oxygen 03/09/25 16:43 03/09/25 16:45 03/09/25 17:00 Temperature Pulse Rate 81 79 94 Respiratory Rate 36 H 29 H 39 H Blood Pressure 116/56 L Pulse Oximetry 92 91 90 Oxygen Delivery Oxygen Flow Rate Fraction of Inspired Oxygen 03/09/25 17:01 03/09/25 17:15 03/09/25 17:30 Temperature Pulse Rate 97 92 73 Respiratory Rate 23 H 22 H 33 H Blood Pressure 119/70 Pulse Oximetry 92 Oxygen Delivery Oxygen Flow Rate Fraction of Inspired Oxygen 03/09/25 17:31 03/09/25 17:45 03/09/25 17:45 Temperature Pulse Rate 72 71 72 Respiratory Rate 33 H 30 H 32 H Blood Pressure 120/57 L 120/57 L Pulse Oximetry 98 91 Oxygen Delivery Oxygen Flow Rate Fraction of Inspired Oxygen 03/09/25 18:02 03/09/25 18:16 03/09/25 18:30 Temperature Pulse Rate 72 79 82 Respiratory Rate 29 H 30 H 34 H Blood Pressure 121/103 H Pulse Oximetry 93 Oxygen Delivery Oxygen Flow Rate Fraction of Inspired Oxygen 03/09/25 18:33 03/09/25 18:54 03/09/25 18:59 Temperature Pulse Rate 81 80 Respiratory Rate 19 30 H Blood Pressure Pulse Oximetry 91 89 L 91 Oxygen Delivery Nasal Cannula Oxygen Flow Rate 4 Fraction of Inspired Oxygen 03/09/25 19:00 03/09/25 19:00 03/09/25 19:01 Temperature Pulse Rate 80 79 80 Respiratory Rate 31 H 26 H 28 H Blood Pressure 111/99 H Pulse Oximetry 95 Oxygen Delivery BiPAP Oxygen Flow Rate Fraction of Inspired Oxygen 03/09/25 19:15 03/09/25 19:31 03/09/25 19:32 Temperature Pulse Rate 79 77 76 Respiratory Rate 27 H 24 H 26 H Blood Pressure 114/73 Pulse Oximetry 96 Oxygen Delivery Oxygen Flow Rate Fraction of Inspired Oxygen 03/09/25 19:45 03/09/25 20:00 03/09/25 20:01 Temperature Pulse Rate 77 74 77 Respiratory Rate 27 H 22 H 25 H Blood Pressure 117/46 L Pulse Oximetry Oxygen Delivery Oxygen Flow Rate Fraction of Inspired Oxygen 03/09/25 20:41 03/09/25 21:30 03/09/25 21:31 Temperature Pulse Rate 77 88 73 Respiratory Rate 23 H 25 H 21 H Blood Pressure 110/47 L 117/52 L Pulse Oximetry 92 96 96 Oxygen Delivery BiPAP Oxygen Flow Rate Fraction of Inspired Oxygen 03/09/25 22:33 03/09/25 22:53 03/09/25 23:50 Temperature 36.9 C 36.9 C Pulse Rate 80 77 91 Respiratory Rate 23 H 17 24 H Blood Pressure 122/64 116/50 L Pulse Oximetry 96 93 96 Oxygen Delivery BiPAP Oxygen Flow Rate Fraction of Inspired Oxygen 03/10/25 00:00 03/10/25 01:47 03/10/25 02:00 Temperature Pulse Rate 75 98 65 Respiratory Rate 21 H Blood Pressure Pulse Oximetry 97 Oxygen Delivery BiPAP Oxygen Flow Rate Fraction of Inspired Oxygen 03/10/25 03:07 03/10/25 04:00 03/10/25 06:10 Temperature 36.9 C Pulse Rate 63 59 L 56 L Respiratory Rate 17 Blood Pressure 147/52 H Pulse Oximetry 99 Oxygen Delivery Oxygen Flow Rate Fraction of Inspired Oxygen 03/10/25 07:37 03/10/25 08:00 03/10/25 08:00 Temperature 36.5 C Pulse Rate 53 L 57 L Respiratory Rate 14 Blood Pressure 145/52 H Pulse Oximetry 100 94 Oxygen Delivery BiPAP Oxygen Flow Rate Fraction of Inspired Oxygen 50 03/10/25 08:57 03/10/25 10:00 03/10/25 10:05 Temperature 36.0 C L Pulse Rate 43 L 52 L 39 L Respiratory Rate 23 H 16 Blood Pressure 102/54 L Pulse Oximetry 100 94 Oxygen Delivery BiPAP Oxygen Flow Rate Fraction of Inspired Oxygen 03/10/25 10:05 03/10/25 10:12 03/10/25 10:30 Temperature Pulse Rate 39 L 41 L Respiratory Rate Blood Pressure 98/49 L 109/55 L Pulse Oximetry Oxygen Delivery Oxygen Flow Rate Fraction of Inspired Oxygen 50 03/10/25 10:45 03/10/25 11:00 03/10/25 11:03 Temperature Pulse Rate 62 58 L 96 Respiratory Rate 20 Blood Pressure 118/54 L 109/51 L Pulse Oximetry 100 Oxygen Delivery BiPAP Oxygen Flow Rate Fraction of Inspired Oxygen 03/10/25 11:15 03/10/25 11:30 03/10/25 11:45 Temperature Pulse Rate 61 63 62 Respiratory Rate Blood Pressure 105/55 L 110/54 L 103/57 L Pulse Oximetry Oxygen Delivery Oxygen Flow Rate Fraction of Inspired Oxygen 03/10/25 12:00 03/10/25 12:00 03/10/25 12:15 Temperature Pulse Rate 58 L 61 62 Respiratory Rate Blood Pressure 102/51 L 111/53 L Pulse Oximetry Oxygen Delivery Oxygen Flow Rate Fraction of Inspired Oxygen 03/10/25 12:30 03/10/25 12:45 03/10/25 13:00 Temperature Pulse Rate 41 L 60 61 Respiratory Rate Blood Pressure 106/48 L 103/53 L 108/53 L Pulse Oximetry Oxygen Delivery Oxygen Flow Rate Fraction of Inspired Oxygen 03/10/25 13:15 03/10/25 13:30 03/10/25 13:44 Temperature Pulse Rate 56 L 68 72 Respiratory Rate Blood Pressure 109/56 L 132/56 L 132/59 L Pulse Oximetry Oxygen Delivery Oxygen Flow Rate Fraction of Inspired Oxygen 03/10/25 13:55 03/10/25 14:45 03/10/25 15:02 Temperature 36.3 C L 35.9 C L Pulse Rate 70 63 96 Respiratory Rate 16 20 20 Blood Pressure 121/62 130/49 L Pulse Oximetry 98 99 100 Oxygen Delivery BiPAP Oxygen Flow Rate Fraction of Inspired Oxygen Intake/Output Intake/Output: Intake & Output 03/07/25 03/08/25 03/09/25 03/10/25 23:59 23:59 23:59 23:59 Intake Total 300 Output Total 1999 Balance 300 -2000 Meds/Results Medications: Active Medications Generic Name Dose Route Start Last Admin Trade Name Freq PRN Reason Stop Dose Admin Acetaminophen 650 mg 03/10/25 08:22 Acetaminophen 325 Mg Tablet PO Q6H PRN Pain (Scale Score 1-3) Aspirin 81 mg 03/10/25 08:00 Aspirin 81 Mg Chewable Tablet PO DAILY@0800 [facility] Atorvastatin Calcium 40 mg 07/09/25 21:00 Atorvastatin 40 Mg Tablet PO HS [facility] Dextrose 12.5 gm 03/10/25 08:32 03/10/25 14:51 Dextrose 50% 25 Gm/50 Ml Syringe IV PUSH 12.5 gm PRN PRN Administration Hypoglycemia Protocol Epoetin Bradford-epbx 10,000 units 03/10/25 18:00 03/10/25 11:42 Epoetin Bradford-Epbx 10,000 Units/Ml Vial IV PUSH 03/10/25 18:01 10,000 units ONCE ONE Administration Famotidine 10 mg 03/11/25 09:00 Famotidine 10 Mg Tablet PO DAILY [facility] Ferrous Sulfate 325 mg 03/10/25 09:00 Ferrous Sulfate [address] BY MOUTH DAILY [facility] Fish Oil 1 gm 03/10/25 11:00 [place] 3 Polyunsat Fatty Acids 1 Gm Cap PO DAILY [facility] Folic Acid 1 mg 03/10/25 09:00 Folic Acid 1 Mg Tablet PO DAILY [facility] Gabapentin 200 mg 03/10/25 21:00 Gabapentin 100 Mg Capsule PO HS [facility] Glucagon 1 mg 03/10/25 08:32 Glucagon For Inj 1 Mg Vial IM PRN PRN Hypoglycemia Protocol Glucose 15 gm 03/10/25 08:32 Glucose Oral Gel 15 Gm Of Glucse In 37.5 Gm Tube PO PRN PRN Hypoglycemia Protocol Albumin Human 50 mls @ 999 mls/hr 03/10/25 00:42 Albutein IVPB 04/09/25 00:41 Q10M PRN HYPOTENSION Dextrose 1,000 mls @ 100 mls/hr 03/10/25 08:32 Dextrose 5% 1,000 Ml IVPB PRN PRN Hypoglycemia Protocol Insulin Aspart 2 - 5 units 03/10/25 12:00 03/10/25 14:52 Insulin Aspart (*Bkc) 100 Units/Ml SUB-Q Not Given TIDWM [facility] Protocol Meclizine HCl 25 mg 03/10/25 08:22 Meclizine Hcl 25 Mg Tablet PO Q8H PRN Dizziness Midodrine 10 mg 03/10/25 09:00 03/10/25 14:24 Midodrine Hcl 10 Mg Tablet PO Not Given 0800,1400 [facility] Mirtazapine 15 mg 03/10/25 21:00 Mirtazapine 15 Mg Tablet PO HS [facility] Mirtazapine 7.5 mg 03/10/25 21:00 Mirtazapine 7.5 Mg Tablet PO HS [facility] Miscellaneous Information 1 each 03/10/25 00:01 Tizanidine 2mg Bid On M-W-F Ordered. External Med Link Looks Like There Is Also 2mg Tid On XX 04/09/25 00:00 CLARIFY [facility] Multi-Ingred Cream/Lotion/Oil/Oint 1 applic 03/10/25 18:00 Eucerin Cream 120 Gm Jar TOPICAL QPM [facility] Multivitamins Therapeutic 1 tablet 03/10/25 09:00 Multivitamins Therapeutic Tab (*Bkc) PO DAILY [facility] Sertraline HCl 25 mg 03/10/25 21:00 Sertraline Hcl 25 Mg Tablet PO HS [facility] Sevelamer Carbonate 800 mg 03/10/25 17:00 Sevelamer Carbonate 800 Mg Tablet PO DAILY@1700 [facility] Tamsulosin HCl 0.4 mg 03/10/25 17:00 Tamsulosin Hcl 0.4 Mg Capsule PO DAILY@1700 [facility] Tizanidine HCl 2 mg 03/12/25 09:00 Tizanidine Hcl 2 Mg Tablet PO BID [facility] Tramadol HCl 50 mg 03/10/25 08:22 Tramadol Hcl (*Crx) 50 Mg Tablet PO Q4H PRN Pain (Scale Score 4-6) Radiology Results: ITS Impressions Chest X-Ray 03/09/25 13:59 Impression: 1: Right perihilar airspace disease, suspicious for pneumonia. 2: Small right pleural effusion. Chest CTA 03/09/25 20:53 IMPRESSION: No pulmonary embolus. No thoracic aortic dissection. Significant enlargement of the main pulmonary artery, consistent with pulmonary hypertension. Redemonstration of cardiomegaly. Extensive mediastinal and supraclavicular lymphadenopathy, unchanged from prior. Bibasilar consolidation with small bilateral pleural effusions. Labs Labs: Laboratory Results - last 24 hr 03/09/25 03/09/25 03/09/25 11:56 16:25 16:26 WBC RBC Hgb Hct MCV MCH MCHC RDW Plt Count MPV Immature Gran % (Auto) Neut % (Auto) Lymph % (Auto) [place] % (Auto) Eos % (Auto) Baso % (Auto) Lymph # (Auto) [place] # (Auto) Eos # (Auto) Baso # (Auto) Abs Immat Gran (auto) Absolute Neuts (auto) Absolute Nucleated RBC Band Neutrophils % Nucleated RBC % Platelet Estimate % Immature Plt Fraction Hypochromasia Anisocytosis Ovalocytes Schistocytes PT INR APTT D-Dimer Puncture Site ABG pH ABG pCO2 ABG pO2 ABG PO2/FiO2 Ratio ABG HCO3 ABG O2 Saturation ABG O2 Content ABG Base Excess A-a Gradient Oxyhemoglobin Carboxyhemoglobin Methemoglobin Reduced Hemoglobin Total Hemoglobin O2 Delivery Device O2 Liters/Min FiO2 Sodium 141 Potassium 5.0 Chloride 102 Carbon Dioxide 27 Anion Gap 12 BUN 80 H Creatinine 8.71 H Estim Creat Clear Calc 9 Estimated GFR 6 L Glucose 100 POC Capillary Glucose 171 H 110 H Calcium 8.6 Phosphorus Magnesium Total Bilirubin AST ALT Alkaline Phosphatase Total Protein Albumin Nasal MRSA (PCR) Hep Bs Antigen Hep Bs Antibody 03/09/25 03/09/25 03/10/25 17:10 18:40 03:58 WBC 6.5 RBC 2.50 L Hgb 8.0 L Hct 25.9 L MCV 103.6 H MCH 32.0 MCHC 30.9 L RDW 17.0 H Plt Count 53 L MPV 12.4 H Immature Gran % (Auto) 0.5 Neut % (Auto) 86.8 H Lymph % (Auto) 4.5 L [place] % (Auto) 8.0 Eos % (Auto) 0.0 Baso % (Auto) 0.2 Lymph # (Auto) 0.29 L [place] # (Auto) 0.5 Eos # (Auto) 0.0 Baso # (Auto) 0.0 Abs Immat Gran (auto) 0.03 Absolute Neuts (auto) 5.7 Absolute Nucleated RBC 0.000 Band Neutrophils % 0 Nucleated RBC % 0.0 Platelet Estimate Decreased % Immature Plt Fraction 6.0 Hypochromasia 1+ Anisocytosis 1+ Ovalocytes 1+ Schistocytes None seen PT 26.8 H INR 2.6 APTT 44.5 H D-Dimer 1.92 H Puncture Site Right radial ABG pH 7.466 H ABG pCO2 33.9 L ABG pO2 62.4 L ABG PO2/FiO2 Ratio 1.73 ABG HCO3 23.9 ABG O2 Saturation 93.4 L ABG O2 Content 12.2 L ABG Base Excess 0.4 A-a Gradient 155.0 Oxyhemoglobin 88.9 L Carboxyhemoglobin 1.6 Methemoglobin 0.1 Reduced Hemoglobin 9.4 H Total Hemoglobin 9.7 L O2 Delivery Device Nasal cannula O2 Liters/Min 4.0 FiO2 36 Sodium 140 Potassium 5.5 H Chloride 101 Carbon Dioxide 25 Anion Gap 14 H BUN 87 H Creatinine 9.57 H Estim Creat Clear Calc 8 Estimated GFR 6 L Glucose 77 POC Capillary Glucose Calcium 8.4 Phosphorus 4.8 H Magnesium 2.2 Total Bilirubin 0.8 AST 17 ALT 15 Alkaline Phosphatase 128 H Total Protein 6.5 Albumin 2.9 L Nasal MRSA (PCR) Hep Bs Antigen Negative Hep Bs Antibody Negative 03/10/25 03/10/25 03/10/25 05:43 08:01 14:38 WBC RBC Hgb Hct MCV MCH MCHC RDW Plt Count MPV Immature Gran % (Auto) Neut % (Auto) Lymph % (Auto) [place] % (Auto) Eos % (Auto) Baso % (Auto) Lymph # (Auto) [place] # (Auto) Eos # (Auto) Baso # (Auto) Abs Immat Gran (auto) Absolute Neuts (auto) Absolute Nucleated RBC Band Neutrophils % Nucleated RBC % Platelet Estimate % Immature Plt Fraction Hypochromasia Anisocytosis Ovalocytes Schistocytes PT INR APTT D-Dimer Puncture Site ABG pH ABG pCO2 ABG pO2 ABG PO2/FiO2 Ratio ABG HCO3 ABG O2 Saturation ABG O2 Content ABG Base Excess A-a Gradient Oxyhemoglobin Carboxyhemoglobin Methemoglobin Reduced Hemoglobin Total Hemoglobin O2 Delivery Device O2 Liters/Min FiO2 Sodium Potassium Chloride Carbon Dioxide Anion Gap BUN Creatinine Estim Creat Clear Calc Estimated GFR Glucose POC Capillary Glucose 75 65 Calcium Phosphorus Magnesium Total Bilirubin AST ALT Alkaline Phosphatase Total Protein Albumin Nasal MRSA (PCR) Detected A* Hep Bs Antigen Hep Bs Antibody 03/10/25 15:19 WBC RBC Hgb Hct MCV MCH MCHC RDW Plt Count MPV Immature Gran % (Auto) Neut % (Auto) Lymph % (Auto) [place] % (Auto) Eos % (Auto) Baso % (Auto) Lymph # (Auto) [place] # (Auto) Eos # (Auto) Baso # (Auto) Abs Immat Gran (auto) Absolute Neuts (auto) Absolute Nucleated RBC Band Neutrophils % Nucleated RBC % Platelet Estimate % Immature Plt Fraction Hypochromasia Anisocytosis Ovalocytes Schistocytes PT INR APTT D-Dimer Puncture Site ABG pH ABG pCO2 ABG pO2 ABG PO2/FiO2 Ratio ABG HCO3 ABG O2 Saturation ABG O2 Content ABG Base Excess A-a Gradient Oxyhemoglobin Carboxyhemoglobin Methemoglobin Reduced Hemoglobin Total Hemoglobin O2 Delivery Device O2 Liters/Min FiO2 Sodium 141 Potassium 3.9 Chloride 105 Carbon Dioxide 25 Anion Gap 11 BUN 33 H D Creatinine 4.33 H Estim Creat Clear Calc 18 Estimated GFR 14 L Glucose 97 POC Capillary Glucose Calcium 8.5 Phosphorus Magnesium Total Bilirubin AST ALT Alkaline Phosphatase Total Protein Albumin Nasal MRSA (PCR) Hep Bs Antigen Hep Bs Antibody
--- NOTE | 2025-03-10 18:13 | PCRCNOTE ---
2nd attempt at ABG was made. Patient refused, RN notified.
[2025-03-10] MEDS: OLANZapine 5 MG, WATER, STERILE FOR INJECTION 2.1 ML IM ×2 (18:15→21:32)
[2025-03-10] MEDS: EUCERIN CREAM 120 GM JAR 1 APPLIC TOPICAL (18:32)
--- NOTE | 2025-03-10 20:02 | PCRTNOTE ---
Attempted ABG unable to get. 2000
[2025-03-10] MEDS: GABAPENTIN 100 MG CAPSULE 200 MG PO (21:31)
[2025-03-10] MEDS: MIRTAZAPINE 15 MG TABLET PO (21:31)
[2025-03-10] MEDS: SERTRALINE HCL 25 MG TABLET PO (21:31)
[2025-03-10] MEDS: ATORVASTATIN 40 MG TABLET PO (21:31)
[2025-03-10] MEDS: MIRTAZAPINE 7.5 MG TABLET PO (21:31)
[2025-03-11] VITALS (22 sets, daily range): BP systolic 98–140; BP diastolic 35–77; PULSE 46–85; RESP 16–20; TEMP 36.5–37.7; O2SAT 94–100
--- NOTE | 2025-03-11 | ECHO_ITS ---
Patient Info Name: Kobi Salter Age: 59 years : 1965 Gender: Male Ht: 72 in Wt: 203 lbs BSA: 2.18 m2 HR: 57 bpm BP: 130 / 62 mmHg Technical Quality: Good Exam Date: 03/11/2025 7:42 AM Patient Status: I Admit Date: 03/09/2025 Exam Type: CA echo dop color flow w con Complete two-dimensional, color flow and Doppler transthoracic echocardiogram is performed with contrast to opacify the left ventricle and to improve the deliniation of the left ventricle endocardial borders. Staff Referring Physician: Judy Malik Dyehouse Worker: Tawana Guerrero Attending Provider: Bianka Hall DO Contrast/Agitated Saline Contrast/Ag. Saline: Definity Amount: 2.00 ml Administered By: Tawana Guerrero Existing IV Access: Yes IV Access Condition: patent with no signs of infiltration Summary 1. Definity contrast administered improved wall motion interpretation. 2. Left ventricular chamber dimension is mildly enlarged. 3. Left ventricular systolic function is normal, estimated at 60-65. 4. The left ventricular diastolic function is grade III diastolic dysfunction. 5. E/e' 11 is mildly elevated. 6. Right ventricular chamber dimension is mildly enlarged. 7. Right ventricular systolic function is at least mildly reduced with abnormal TAPSE 1.2 cm. 8. Left atrial chamber dimension is severely enlarged. 9. Right atrial chamber dimension is moderately enlarged. 10. There is mild aortic valve sclerosis. 11. There is trace aortic valve regurgitation. 12. The mitral valve has a mildly calcified annulus. 13. There is mild mitral valve regurgitation. 14. There is mild tricuspid valve regurgitation. 15. Mild pulmonary hypertension, estimated pulmonary arterial systolic pressure is 42 mmHg. 16. There is trace pulmonic regurgitation. 17. Dilated inferior vena cava with >50% collapse upon inspiration consistent with elevated right atrial pressure, 10 mmHg. Left Ventricle E/e' 11 is mildly elevated. Left ventricular chamber dimension is mildly enlarged. Left ventricular systolic function is normal, estimated at 60-65. The left ventricular diastolic function is grade III diastolic dysfunction. Definity contrast administered improved wall motion interpretation. Right Ventricle Right ventricular chamber dimension is mildly enlarged. Right ventricular systolic function is at least mildly reduced with abnormal TAPSE 1.2 cm. Left Atria Left atrial chamber dimension is severely enlarged. Right Atria Right atrial chamber dimension is moderately enlarged. Aortic Valve The aortic valve is trileaflet. There is mild aortic valve sclerosis. There is no aortic valve stenosis. There is trace aortic valve regurgitation. Pulmonic Valve There is trace pulmonic regurgitation. Mitral Valve The mitral valve has a mildly calcified annulus. There is no mitral valve stenosis. There is mild mitral valve regurgitation. Tricuspid Valve There is mild tricuspid valve regurgitation. Mild pulmonary hypertension, estimated pulmonary arterial systolic pressure is 42 mmHg. Pericardium/Pleural There is no pericardial effusion. Inferior Vena Cava Dilated inferior vena cava with >50% collapse upon inspiration consistent with elevated right atrial pressure, 10 mmHg. Aorta The aortic root size at the sinus of Valsalva is normal. Left Ventricular Outflow Tract Name Value Normal LVOT 2D LVOT Diameter 2.1 cm LVOT Doppler LVOT Peak Velocity 119 cm/s LVOT Peak Gradient 6 mmHg LVOT Mean Gradient 4 mmHg LVOT VTI 25 cm LVOT VTI/AV VTI Ratio 0.8 LVOT Stroke Volume 87 ml LVOT CO 6.4 l/min LVOT CI 2.9 l/min/m2 Pulmonic Valve Name Value Normal PV Doppler PV Peak Velocity 99 cm/s PV Peak Gradient 4 mmHg PV Regurgitation Doppler OH Peak End Diastolic Velocity 92 cm/s Mitral Valve Name Value Normal MV Diastolic Function MV E Peak Velocity 145 cm/s MV A Peak Velocity 46 cm/s MV E/A 3.1 MV Decel Time (PW) 164 ms MV Annular TDI MV E/e' (Septal) 14.7 MV E/e' (Lateral) 9.8 MV E/e' (Average) 12.3 Tricuspid Valve Name Value Normal TV Regurgitation Doppler TR Peak Velocity 285 cm/s TR Peak Gradient 32 mmHg Estimated PAP/RSVP RA Pressure 10 mmHg <=5 PA Systolic Pressure 42 mmHg <36 RV Systolic Pressure 42 mmHg <36 TV Annular TDI TV Lateral Guerita s' Velocity 7.3 cm/s >=9.5 Aortic Valve Name Value Normal AV Doppler AV Peak Velocity 149 cm/s AV Peak Gradient 9 mmHg AV Mean Gradient 5 mmHg AV VTI 29 cm AV Area (Cont Eq VTI) 3.0 cm2 >=3.0 AV Area (Cont Eq Tong) 2.8 cm2 AV DI (Tong) 0.79 AV Regurgitation 2D LVOT Area 3.5 cm2 Ventricles Name Value Normal LV Dimensions 2D/MM IVS Diastolic Thickness (2D) 1.0 cm 0.6-1.0 LVID Diastole (2D) 5.6 cm 4.2-5.8 LVIW Diastolic Thickness (2D) 1.0 cm 0.6-1.0 LVID Systole (2D) 3.8 cm 2.5-4.0 LVOT Diameter 2.1 cm LV Mass (2D Cubed) 212.17 g 88.00-224.00 LV Mass Index (2D Cubed) 97 g/m2 49-115 Relative Wall Thickness (2D) 0.36 <=0.42 LV Fractional Shortening/Ejection Fraction 2D/MM LV Fractional Shortening (2D) 33 % 25-43 LV EF (2D Teichholz) 61 % LV Diastolic Volume (4C MOD) 195 ml LV EF (4C MOD) 50 % LV Diastolic Volume (2C MOD) 199 ml LV EF (2C MOD) 28 % LV Diastolic Volume (BP MOD) 199 ml 62-150 LV Diastolic Volume Index (BP MOD) 91 ml/m2 34-74 LV Systolic Volume (BP MOD) 118 ml 21-61 LV Systolic Volume Index (BP MOD) 54 ml/m2 11-31 LV EF (BP MOD) 41 % 52-72 LV Diastolic Length (4C) 10.3 cm LV Systolic Length (4C) 9.4 cm LV Stroke Volume (4C MOD) 97 ml Atria Name Value Normal LA Dimensions LA Volume (4C A-L) 115 ml LA Volume (BP A-L) 126 ml RA Dimensions RA Systolic Major [place] Length (4C) 6.1 cm 2.1-2.7 RA Area (4C) 23.6 cm2 <=18.0 Report Signatures
[2025-03-11 04:51] LABS: Hematocrit 26.4 % (42.0-52.0); Hemoglobin 7.8 g/dL (14.0-18.0); Immature Platelet Fraction Pct 6.0 % (0.9-11.2); Mean Corpuscular HGB Conc 29.5 g/dl (32-36); Mean Corpuscular Hemoglobin 31.3 pg (26-34); Mean Corpuscular Volume 106.0 fl (80-100); Platelet Count Result 64 k/mm3 (150-375); Red Blood Count 2.49 M/mm3 (4.6-6.20); White Blood Count 4.5 K/mm3 (4.5-10.0)
[2025-03-11 05:06] LABS: Albumin Level 2.8 g/dL (3.5-5.1); Anion Gap 9 mmol/L (4-12); Blood Urea Nitrogen 40 mg/dL (9-20); Calcium 8.5 mg/dL (8.4-10.2); Carbon Dioxide 26 mmol/L (22-30); Chloride 106 mmol/L (98-107); Estimated CRCL calculation 14 ml/min; Estimated Glomerular Filt Rate 10; Glucose 58 mg/dL (65-110); Magnesium 2.2 mg/dL (1.6-2.3); Potassium 4.2 mmol/L (3.4-5.0); Sodium 141 mmol/L (137-145)
[2025-03-11] MEDS: DEXTROSE 50% 25 GM/50 ML SYRINGE IV PUSH (05:10)
[2025-03-11] MEDS: PERFLUTREN LIPID MICROSPHERES 1.5 ML VIAL DILUTED TO 10 ML TOTAL VOLUME IV PUSH (08:00)
--- NOTE | 2025-03-11 08:00 | P.PNCA_ITS ---
Progress Note: A&P Assessment and Plan (1) Weakness: Code(s): R53.1 - Weakness Status: Acute Assessment and Plan: Probably due to missing 6 HD sessions. Check echo. If echo is OK, no further cardiac workup is needed. (2) Acute respiratory failure with hypoxia: Code(s): J96.01 - Acute respiratory failure with hypoxia Status: Acute Assessment and Plan: Volume overloaded probably from missing dialysis. (3) Paroxysmal atrial fibrillation: Code(s): I48.0 - Paroxysmal atrial fibrillation Status: Acute Assessment and Plan: Rate is stable. [id number] 2. Given significant anemia, would keep on aspirin 325 mg daily and he is agreeable to this. (4) CAD (coronary artery disease), autologous vein bypass graft: Qualifiers: Associated angina: without angina Qualified Code(s): I25.810 - Atherosclerosis of coronary artery bypass graft(s) without angina pectoris Code(s): I25.810 - Atherosclerosis of coronary artery bypass graft(s) without angina pectoris Status: Acute Subjective Date/time seen: 03/11/25 08:00 Interval history: He appears confused and mentally altered. No chest pain. Exam Const: General: awake and lethargic; No alert Resp: Auscultation: no crackles, no rales, no rhonchi and no wheezes Cardio: Rate: regular rate Rhythm: abnormal rhythm Heart sounds: no murmurs Peripheral pulses: dorsalis pedis present GI: GI Palp: No abdominal tenderness and Yes Soft to palpation Extrem: Other: BKA Objective Data Vital Signs Vital Signs: Vital Signs - 24 hr 03/10/25 08:57 03/10/25 10:00 03/10/25 10:05 Temperature 96.8 F L Pulse Rate 43 L 52 L 39 L Respiratory Rate 23 H 16 Blood Pressure 102/54 L Pulse Oximetry 100 94 Oxygen Delivery BiPAP Oxygen Flow Rate Fraction of Inspired Oxygen 03/10/25 10:05 03/10/25 10:12 03/10/25 10:30 Temperature Pulse Rate 39 L 41 L Respiratory Rate Blood Pressure 98/49 L 109/55 L Pulse Oximetry Oxygen Delivery Oxygen Flow Rate Fraction of Inspired Oxygen 50 03/10/25 10:45 03/10/25 11:00 03/10/25 11:03 Temperature Pulse Rate 62 58 L 96 Respiratory Rate 20 Blood Pressure 118/54 L 109/51 L Pulse Oximetry 100 Oxygen Delivery BiPAP Oxygen Flow Rate Fraction of Inspired Oxygen 03/10/25 11:15 03/10/25 11:30 03/10/25 11:45 Temperature Pulse Rate 61 63 62 Respiratory Rate Blood Pressure 105/55 L 110/54 L 103/57 L Pulse Oximetry Oxygen Delivery Oxygen Flow Rate Fraction of Inspired Oxygen 03/10/25 12:00 03/10/25 12:00 03/10/25 12:15 Temperature Pulse Rate 58 L 61 62 Respiratory Rate Blood Pressure 102/51 L 111/53 L Pulse Oximetry Oxygen Delivery Oxygen Flow Rate Fraction of Inspired Oxygen 03/10/25 12:30 03/10/25 12:45 03/10/25 13:00 Temperature Pulse Rate 41 L 60 61 Respiratory Rate Blood Pressure 106/48 L 103/53 L 108/53 L Pulse Oximetry Oxygen Delivery Oxygen Flow Rate Fraction of Inspired Oxygen 03/10/25 13:15 03/10/25 13:30 03/10/25 13:44 Temperature Pulse Rate 56 L 68 72 Respiratory Rate Blood Pressure 109/56 L 132/56 L 132/59 L Pulse Oximetry Oxygen Delivery Oxygen Flow Rate Fraction of Inspired Oxygen 03/10/25 13:55 03/10/25 14:00 03/10/25 14:45 Temperature 97.4 F L 96.7 F L Pulse Rate 70 54 L 63 Respiratory Rate 16 20 Blood Pressure 121/62 130/49 L Pulse Oximetry 98 99 Oxygen Delivery Oxygen Flow Rate Fraction of Inspired Oxygen 03/10/25 15:02 03/10/25 16:00 03/10/25 16:00 Temperature Pulse Rate 96 96 Respiratory Rate 20 20 Blood Pressure 123/46 L Pulse Oximetry 100 100 Oxygen Delivery BiPAP BiPAP Oxygen Flow Rate Fraction of Inspired Oxygen 40 03/10/25 16:00 03/10/25 18:00 03/10/25 18:30 Temperature 97.6 F Pulse Rate 63 56 L 64 Respiratory Rate 12 Blood Pressure 116/31 L Pulse Oximetry 99 Oxygen Delivery Oxygen Flow Rate Fraction of Inspired Oxygen 03/10/25 18:45 03/10/25 19:15 03/10/25 19:22 Temperature 98.7 F 99.0 F Pulse Rate 56 L 78 54 L Respiratory Rate 12 18 16 Blood Pressure 108/32 L 116/77 121/40 L Pulse Oximetry 96 94 100 Oxygen Delivery Oxygen Flow Rate Fraction of Inspired Oxygen 03/10/25 19:30 03/10/25 20:00 03/10/25 20:00 Temperature Pulse Rate 85 66 Respiratory Rate 16 Blood Pressure 128/80 Pulse Oximetry 93 91 Oxygen Delivery Nasal Cannula Oxygen Flow Rate 2 Fraction of Inspired Oxygen 03/10/25 20:03 03/10/25 20:30 03/10/25 21:30 Temperature Pulse Rate 65 84 63 Respiratory Rate 16 18 16 Blood Pressure 144/45 H 121/43 L Pulse Oximetry 100 94 98 Oxygen Delivery BiPAP Oxygen Flow Rate Fraction of Inspired Oxygen 03/10/25 21:30 03/10/25 21:45 03/10/25 22:00 Temperature Pulse Rate 63 60 58 L Respiratory Rate 18 18 18 Blood Pressure 121/43 L 118/41 L 129/53 L Pulse Oximetry 98 97 98 Oxygen Delivery Oxygen Flow Rate Fraction of Inspired Oxygen 03/10/25 22:00 03/10/25 22:15 03/10/25 22:30 Temperature Pulse Rate 60 62 72 Respiratory Rate 18 18 Blood Pressure 110/45 L 118/82 Pulse Oximetry 96 90 Oxygen Delivery Oxygen Flow Rate Fraction of Inspired Oxygen 03/10/25 22:53 03/10/25 23:30 03/10/25 23:55 Temperature 97.7 F Pulse Rate 68 62 95 Respiratory Rate 20 18 17 Blood Pressure 118/52 L 118/42 L Pulse Oximetry 95 95 95 Oxygen Delivery Nasal Cannula Oxygen Flow Rate 3 Fraction of Inspired Oxygen 32 03/11/25 00:00 03/11/25 00:00 03/11/25 00:30 Temperature Pulse Rate 58 L 57 L Respiratory Rate 16 Blood Pressure 140/77 Pulse Oximetry 95 97 Oxygen Delivery Nasal Cannula Oxygen Flow Rate 2 Fraction of Inspired Oxygen 03/11/25 02:00 03/11/25 03:14 03/11/25 03:47 Temperature Pulse Rate 63 59 L 60 Respiratory Rate 20 Blood Pressure Pulse Oximetry 96 96 Oxygen Delivery Nasal Cannula Nasal Cannula Oxygen Flow Rate 3 3 Fraction of Inspired Oxygen 32 03/11/25 03:51 03/11/25 04:00 03/11/25 04:21 Temperature 97.7 F Pulse Rate 85 55 L 57 L Respiratory Rate 17 20 Blood Pressure 130/62 Pulse Oximetry 96 95 Oxygen Delivery Nasal Cannula Oxygen Flow Rate 3 Fraction of Inspired Oxygen 32 03/11/25 06:00 03/11/25 07:36 Temperature Pulse Rate 64 Respiratory Rate Blood Pressure Pulse Oximetry 95 Oxygen Delivery Nasal Cannula Oxygen Flow Rate 3 Fraction of Inspired Oxygen Intake/Output Intake/Output: Intake & Output 03/08/25 03/09/25 03/10/25 03/11/25 23:59 23:59 23:59 23:59 Intake Total 300 Output Total 2000 Balance 300 -2000 Meds/Results Medications: Active Medications Generic Name Dose Route Start Last Admin Trade Name Saulo PRN Reason Stop Dose Admin Acetaminophen 650 mg 03/10/25 08:22 Acetaminophen 325 Mg Tablet PO Q6H PRN Pain (Scale Score 1-3) Aspirin 81 mg 03/10/25 08:00 03/10/25 18:15 Aspirin 81 Mg Chewable Tablet PO Not Given DAILY@0800 [facility] Atorvastatin Calcium 40 mg 03/10/25 21:00 03/10/25 21:31 Atorvastatin 40 Mg Tablet PO 40 mg HS [facility] Administration Dextrose 12.5 gm 03/10/25 08:32 03/11/25 05:10 Dextrose 50% 25 Gm/50 Ml Syringe IV PUSH 12.5 gm PRN PRN Administration Hypoglycemia Protocol Famotidine 10 mg 03/11/25 09:00 Famotidine 10 Mg Tablet PO DAILY [facility] Ferrous Sulfate 325 mg 03/10/25 09:00 03/10/25 18:31 Ferrous Sulfate [address] BY MOUTH Not Given DAILY [facility] Fish Oil 1 gm 03/10/25 11:00 03/10/25 18:31 [place] 3 Polyunsat Fatty Acids 1 Gm Cap PO Not Given DAILY [facility] Folic Acid 1 mg 03/10/25 09:00 03/10/25 18:31 Folic Acid 1 Mg Tablet PO Not Given DAILY [facility] Gabapentin 200 mg 03/10/25 21:00 03/10/25 21:31 Gabapentin 100 Mg Capsule PO 200 mg HS [facility] Administration Glucagon 1 mg 03/10/25 08:32 Glucagon For Inj 1 Mg Vial IM PRN PRN Hypoglycemia Protocol Glucose 15 gm 03/10/25 08:32 Glucose Oral Gel 15 Gm Of Glucse In 37.5 Gm Tube PO PRN PRN Hypoglycemia Protocol Albumin Human 50 mls @ 999 mls/hr 03/10/25 00:42 [place]in IVPB 04/09/25 00:41 Q10M PRN HYPOTENSION Dextrose 1,000 mls @ 100 mls/hr 03/10/25 08:32 Dextrose 5% 1,000 Ml IVPB PRN PRN Hypoglycemia Protocol Insulin Aspart 2 - 5 units 03/10/25 12:00 03/10/25 18:31 Insulin Aspart (*Bkc) 100 Units/Ml SUB-Q Not Given TIDWM [facility] Protocol Meclizine HCl 25 mg 03/10/25 08:22 Meclizine Hcl 25 Mg Tablet PO Q8H PRN Dizziness Midodrine 10 mg 03/10/25 09:00 03/10/25 18:31 Midodrine Hcl 10 Mg Tablet PO Not Given 0800,1400 [facility] Mirtazapine 15 mg 03/10/25 21:00 03/10/25 21:31 Mirtazapine 15 Mg Tablet PO 15 mg HS [facility] Administration Mirtazapine 7.5 mg 03/10/25 21:00 03/10/25 21:31 Mirtazapine 7.5 Mg Tablet PO 7.5 mg HS [facility] Administration Multi-Ingred Cream/Lotion/Oil/Oint 1 applic 03/10/25 18:00 03/10/25 18:32 Eucerin Cream 120 Gm Jar TOPICAL 1 applic QPM [facility] Administration Multivitamins Therapeutic 1 tablet 03/10/25 09:00 03/10/25 18:31 Multivitamins Therapeutic Tab (*Bkc) PO Not Given DAILY [facility] Perflutren Lipid Microsphere 0 ml 03/10/25 15:54 Perflutren Lipid Microspheres 1.5 Ml Vial Diluted To 10 Ml Total Volume IV PUSH 03/13/25 15:54 ONCE PRN adequate visualization Protocol Sertraline HCl 25 mg 03/10/25 21:00 03/10/25 21:31 Sertraline Hcl 25 Mg Tablet PO 25 mg HS [facility] Administration Sevelamer Carbonate 800 mg 03/10/25 17:00 03/10/25 18:32 Sevelamer Carbonate 800 Mg Tablet PO Not Given DAILY@1700 [facility] Tamsulosin HCl 0.4 mg 03/10/25 17:00 03/10/25 18:32 Tamsulosin Hcl 0.4 Mg Capsule PO Not Given DAILY@1700 [facility] Tizanidine HCl 2 mg 03/10/25 17:00 03/10/25 18:32 Tizanidine Hcl 2 Mg Tablet PO Not Given BID [facility] Tizanidine HCl 2 mg 03/11/25 13:00 Tizanidine Hcl 2 Mg Tablet PO Low@1300 [facility] Tramadol HCl 50 mg 03/10/25 08:22 Tramadol Hcl (*Crx) 50 Mg Tablet PO Q4H PRN Pain (Scale Score 4-6) Radiology Results: ITS Impressions Chest CTA 03/09/25 20:53 IMPRESSION: No pulmonary embolus. No thoracic aortic dissection. Significant enlargement of the main pulmonary artery, consistent with pulmonary hypertension. Redemonstration of cardiomegaly. Extensive mediastinal and supraclavicular lymphadenopathy, unchanged from prior. Bibasilar consolidation with small bilateral pleural effusions. Chest X-Ray 03/11/25 06:12 Impression: Mild to moderate pulmonary edema with central congestive change and mild bibasilar atelectasis. Stable cardiomegaly. Labs Labs: Laboratory Results - last 24 hr 03/10/25 03/10/25 03/10/25 08:01 14:38 15:19 WBC RBC Hgb Hct MCV MCH MCHC RDW Plt Count MPV % Immature Plt Fraction Sodium 141 Potassium 3.9 Chloride 105 Carbon Dioxide 25 Anion Gap 11 BUN 33 H D Creatinine 4.33 H Estim Creat Clear Calc 18 Estimated GFR 14 L Glucose 97 POC Capillary Glucose 75 65 Calcium 8.5 Phosphorus Magnesium Albumin 03/10/25 03/10/25 03/10/25 16:27 19:01 20:04 WBC RBC Hgb Hct MCV MCH MCHC RDW Plt Count MPV % Immature Plt Fraction Sodium Potassium Chloride Carbon Dioxide Anion Gap BUN Creatinine Estim Creat Clear Calc Estimated GFR Glucose POC Capillary Glucose 76 58 L* 108 H Calcium Phosphorus Magnesium Albumin 03/11/25 03/11/25 04:11 05:41 WBC 4.5 RBC 2.49 L Hgb 7.8 L Hct 26.4 L MCV 106.0 H MCH 31.3 MCHC 29.5 L RDW 16.8 H Plt Count 64 L MPV 13.7 H % Immature Plt Fraction 6.0 Sodium 141 Potassium 4.2 Chloride 106 Carbon Dioxide 26 Anion Gap 9 BUN 40 H Creatinine 5.61 H Estim Creat Clear Calc 14 Estimated GFR 10 L Glucose 58 L* POC Capillary Glucose 112 H Calcium 8.5 Phosphorus 3.7 Magnesium 2.2 Albumin 2.8 L
--- NOTE | 2025-03-11 08:57 | P.PNIM_ITS ---
Progress Note: A&P Assessment and Plan (1) Type 2 diabetes mellitus: Code(s): E11.9 - Type 2 diabetes mellitus without complications Status: Acute (2) Fluid overload: Code(s): E87.70 - Fluid overload, unspecified Status: Acute (3) Respiratory failure: Code(s): J96.90 - Respiratory failure, unspecified, unspecified whether with hypoxia or hypercapnia Status: Acute (4) Weakness: Code(s): R53.1 - Weakness Status: Acute (5) Altered mental status: Code(s): R41.82 - Altered mental status, unspecified Status: Acute Plan 59-year-old male with a history of ESRD on hemodialysis Saturday at [facility] followed by Dr. Almodovar, chronic anemia, paroxysmal atrial fibrillation, combined systolic and diastolic heart failure, CAD status post 4 vessel bypass, hypertension, hyperlipidemia, [id number] diabetes mellitus, bilateral BKA and other comorbidities who presents to [facility] ER on 03/10/2025 from [facility] due to shortness of breath, weakness, confusion. Reportedly the patient was saturating 80% on room air, he has been refusing to go to at dialysis for 6 days prior to admission. Hypoxic in the ER in tachypneic, placed on BiPAP with improvement in his respiratory status. ABG demonstrated respiratory alkalosis with persistent hypoxia on 4 L nasal cannula. He was also hyperkalemic and received bicarb insulin and dextrose and received fluids. ----- Underwent dialysis on 03/10/2025. ----- 03/11/2025: Currently on 2 L nasal cannula. No respiratory distress. Still has bibasilar crackles, chest x-ray demonstrating pulmonary vascular congestion. You may see greater improvement with another session of dialysis, nephrology following. He is A&O x2 and reportedly his baseline is A&O x3. Check CT head without contrast. Possibly polypharmacy in combination with missing dialysis and increased concentrations. Patient had glucose 57 this morning and reportedly that has improved to 74. Received [id number] units Retacrit on 03/10/2025. Has chronic anemia, avoid pharmacological DVT prophylaxis. On aspirin 325 daily per Cardiology. Pending echocardiogram. ----- DNR. Saline lock IV. Subjective Date/time seen: 03/11/25 08:57 Interval history: No major acute overnight events. Patient being fed breakfast. He is verbal and cooperative however does not know where he is. He denies any complaints including shortness of breath or any pain. Review of Systems Review of Systems: All systems reviewed & are unremarkable except as noted in HPI and below ROS unobtainable: Yes unobtainable due to mental status Exam Const: General: comfortable and no acute distress Other: A&O x2 Eyes: Pupils: Equal, round and reactive pupils present Neck: Neck: supple Resp: Effort & Inspection: normal respiratory effort Other: Bibasilar crackles Cardio: Rate: regular rate Rhythm: regular rhythm GI: GI Palp: Yes Soft to palpation and No Tenderness to palpation present (GI) Extrem: General: no edema Objective Data Vital Signs Vital Signs: Vital Signs - 24 hr 03/10/25 10:00 03/10/25 10:05 03/10/25 10:05 Temperature 96.8 F L Pulse Rate 52 L 39 L Respiratory Rate 16 Blood Pressure 102/54 L Pulse Oximetry 94 Oxygen Delivery Oxygen Flow Rate Fraction of Inspired Oxygen 50 03/10/25 10:12 03/10/25 10:30 03/10/25 10:45 Temperature Pulse Rate 39 L 41 L 62 Respiratory Rate Blood Pressure 98/49 L 109/55 L 118/54 L Pulse Oximetry Oxygen Delivery Oxygen Flow Rate Fraction of Inspired Oxygen 03/10/25 11:00 03/10/25 11:03 03/10/25 11:15 Temperature Pulse Rate 58 L 96 61 Respiratory Rate 20 Blood Pressure 109/51 L 105/55 L Pulse Oximetry 100 Oxygen Delivery BiPAP Oxygen Flow Rate Fraction of Inspired Oxygen 03/10/25 11:30 03/10/25 11:45 03/10/25 12:00 Temperature Pulse Rate 63 62 58 L Respiratory Rate Blood Pressure 110/54 L 103/57 L 102/51 L Pulse Oximetry Oxygen Delivery Oxygen Flow Rate Fraction of Inspired Oxygen 03/10/25 12:00 03/10/25 12:15 03/10/25 12:30 Temperature Pulse Rate 61 62 41 L Respiratory Rate Blood Pressure 111/53 L 106/48 L Pulse Oximetry Oxygen Delivery Oxygen Flow Rate Fraction of Inspired Oxygen 03/10/25 12:45 03/10/25 13:00 03/10/25 13:15 Temperature Pulse Rate 60 61 56 L Respiratory Rate Blood Pressure 103/53 L 108/53 L 109/56 L Pulse Oximetry Oxygen Delivery Oxygen Flow Rate Fraction of Inspired Oxygen 03/10/25 13:30 03/10/25 13:44 03/10/25 13:55 Temperature 97.4 F L Pulse Rate 68 72 70 Respiratory Rate 16 Blood Pressure 132/56 L 132/59 L 121/62 Pulse Oximetry 98 Oxygen Delivery Oxygen Flow Rate Fraction of Inspired Oxygen 03/10/25 14:00 03/10/25 14:45 03/10/25 15:02 Temperature 96.7 F L Pulse Rate 54 L 63 96 Respiratory Rate 20 20 Blood Pressure 130/49 L Pulse Oximetry 99 100 Oxygen Delivery BiPAP Oxygen Flow Rate Fraction of Inspired Oxygen 03/10/25 16:00 03/10/25 16:00 03/10/25 16:00 Temperature Pulse Rate 96 63 Respiratory Rate 20 Blood Pressure 123/46 L Pulse Oximetry 100 Oxygen Delivery BiPAP Oxygen Flow Rate Fraction of Inspired Oxygen 40 03/10/25 18:00 03/10/25 18:30 03/10/25 18:45 Temperature 97.6 F 98.7 F Pulse Rate 56 L 64 56 L Respiratory Rate 12 12 Blood Pressure 116/31 L 108/32 L Pulse Oximetry 99 96 Oxygen Delivery Oxygen Flow Rate Fraction of Inspired Oxygen 03/10/25 19:15 03/10/25 19:22 03/10/25 19:30 Temperature 99.0 F Pulse Rate 78 54 L 85 Respiratory Rate 18 16 16 Blood Pressure 116/77 121/40 L 128/80 Pulse Oximetry 94 100 93 Oxygen Delivery Oxygen Flow Rate Fraction of Inspired Oxygen 03/10/25 20:00 03/10/25 20:00 03/10/25 20:03 Temperature Pulse Rate 66 65 Respiratory Rate 16 Blood Pressure Pulse Oximetry 91 100 Oxygen Delivery Nasal Cannula BiPAP Oxygen Flow Rate 2 Fraction of Inspired Oxygen 03/10/25 20:30 03/10/25 21:30 03/10/25 21:30 Temperature Pulse Rate 84 63 63 Respiratory Rate 18 16 18 Blood Pressure 144/45 H 121/43 L 121/43 L Pulse Oximetry 94 98 98 Oxygen Delivery Oxygen Flow Rate Fraction of Inspired Oxygen 03/10/25 21:45 03/10/25 22:00 03/10/25 22:00 Temperature Pulse Rate 60 58 L 60 Respiratory Rate 18 18 Blood Pressure 118/41 L 129/53 L Pulse Oximetry 97 98 Oxygen Delivery Oxygen Flow Rate Fraction of Inspired Oxygen 03/10/25 22:15 03/10/25 22:30 03/10/25 22:53 Temperature Pulse Rate 62 72 68 Respiratory Rate 18 18 20 Blood Pressure 110/45 L 118/82 Pulse Oximetry 96 90 95 Oxygen Delivery Nasal Cannula Oxygen Flow Rate 3 Fraction of Inspired Oxygen 32 03/10/25 23:30 03/10/25 23:55 03/11/25 00:00 Temperature 97.7 F Pulse Rate 62 95 Respiratory Rate 18 17 Blood Pressure 118/52 L 118/42 L Pulse Oximetry 95 95 95 Oxygen Delivery Nasal Cannula Oxygen Flow Rate 2 Fraction of Inspired Oxygen 03/11/25 00:00 03/11/25 00:30 03/11/25 02:00 Temperature Pulse Rate 58 L 57 L 63 Respiratory Rate 16 Blood Pressure 140/77 Pulse Oximetry 97 Oxygen Delivery Oxygen Flow Rate Fraction of Inspired Oxygen 03/11/25 03:14 03/11/25 03:47 03/11/25 03:51 Temperature 97.7 F Pulse Rate 59 L 60 85 Respiratory Rate 20 17 Blood Pressure 130/62 Pulse Oximetry 96 96 96 Oxygen Delivery Nasal Cannula Nasal Cannula Oxygen Flow Rate 3 3 Fraction of Inspired Oxygen 32 03/11/25 04:00 03/11/25 04:21 03/11/25 06:00 Temperature Pulse Rate 55 L 57 L 64 Respiratory Rate 20 Blood Pressure Pulse Oximetry 95 Oxygen Delivery Nasal Cannula Oxygen Flow Rate 3 Fraction of Inspired Oxygen 32 03/11/25 07:36 03/11/25 08:00 03/11/25 08:00 Temperature Pulse Rate 64 67 Respiratory Rate 20 Blood Pressure Pulse Oximetry 95 95 Oxygen Delivery Nasal Cannula Nasal Cannula Oxygen Flow Rate 3 3 Fraction of Inspired Oxygen 32 03/11/25 08:00 Temperature 99.7 F H Pulse Rate 77 Respiratory Rate 18 Blood Pressure 114/46 L Pulse Oximetry 94 Oxygen Delivery Oxygen Flow Rate Fraction of Inspired Oxygen Intake/Output Intake/Output: Intake & Output 03/08/25 03/09/25 03/10/25 03/11/25 23:59 23:59 23:59 23:59 Intake Total 300 Output Total 2000 Balance 300 -2000 Meds/Results Medications: Active Medications Generic Name Dose Route Start Last Admin Trade Name Freq PRN Reason Stop Dose Admin Acetaminophen 650 mg 03/10/25 08:22 Acetaminophen 325 Mg Tablet PO Q6H PRN Pain (Scale Score 1-3) Aspirin 325 mg 03/11/25 09:00 Aspirin 325 Mg Enteric Tablet PO QAM [facility] Atorvastatin Calcium 40 mg 03/10/25 21:00 03/10/25 21:31 Atorvastatin 40 Mg Tablet PO 40 mg HS [facility] Administration Dextrose 12.5 gm 03/10/25 08:32 03/11/25 05:10 Dextrose 50% 25 Gm/50 Ml Syringe IV PUSH 12.5 gm PRN PRN Administration Hypoglycemia Protocol Famotidine 10 mg 03/11/25 09:00 Famotidine 10 Mg Tablet PO DAILY [facility] Ferrous Sulfate 325 mg 03/10/25 09:00 03/10/25 18:31 Ferrous Sulfate [address] BY MOUTH Not Given DAILY [facility] Fish Oil 1 gm 03/10/25 11:00 03/10/25 18:31 [place] 3 Polyunsat Fatty Acids 1 Gm Cap PO Not Given DAILY [facility] Folic Acid 1 mg 03/10/25 09:00 03/10/25 18:31 Folic Acid 1 Mg Tablet PO Not Given DAILY [facility] Gabapentin 200 mg 03/10/25 21:00 03/10/25 21:31 Gabapentin 100 Mg Capsule PO 200 mg HS [facility] Administration Glucagon 1 mg 03/10/25 08:32 Glucagon For Inj 1 Mg Vial IM PRN PRN Hypoglycemia Protocol Glucose 15 gm 03/10/25 08:32 Glucose Oral Gel 15 Gm Of Glucse In 37.5 Gm Tube PO PRN PRN Hypoglycemia Protocol Albumin Human 50 mls @ 999 mls/hr 03/10/25 00:42 Alb[place]in IVPB 04/09/25 00:41 Q10M PRN HYPOTENSION Dextrose 1,000 mls @ 100 mls/hr 03/10/25 08:32 Dextrose 5% 1,000 Ml IVPB PRN PRN Hypoglycemia Protocol Insulin Aspart 2 - 5 units 03/10/25 12:00 03/10/25 18:31 Insulin Aspart (*Bkc) 100 Units/Ml SUB-Q Not Given TIDWM [facility] Protocol Meclizine HCl 25 mg 03/10/25 08:22 Meclizine Hcl 25 Mg Tablet PO Q8H PRN Dizziness Midodrine 10 mg 03/10/25 09:00 03/10/25 18:31 Midodrine Hcl 10 Mg Tablet PO Not Given 0800,1400 [facility] Mirtazapine 15 mg 03/10/25 21:00 03/10/25 21:31 Mirtazapine 15 Mg Tablet PO 15 mg HS [facility] Administration Mirtazapine 7.5 mg 03/10/25 21:00 03/10/25 21:31 Mirtazapine 7.5 Mg Tablet PO 7.5 mg HS [place] Administration Multi-Ingred Cream/Lotion/Oil/Oint 1 applic 03/10/25 18:00 03/10/25 18:32 Eucerin Cream 120 Gm Jar TOPICAL 1 applic QPM [facility] Administration Multivitamins Therapeutic 1 tablet 03/10/25 09:00 03/10/25 18:31 Multivitamins Therapeutic Tab (*Bkc) PO Not Given DAILY [facility] Perflutren Lipid Microsphere 0 ml 03/10/25 15:54 Perflutren Lipid Microspheres 1.5 Ml Vial Diluted To 10 Ml Total Volume IV PUSH 03/13/25 15:54 ONCE PRN adequate visualization Protocol Sertraline HCl 25 mg 03/10/25 21:00 03/10/25 21:31 Sertraline Hcl 25 Mg Tablet PO 25 mg HS [place] Administration Sevelamer Carbonate 800 mg 03/10/25 17:00 03/10/25 18:32 Sevelamer Carbonate 800 Mg Tablet PO Not Given DAILY@1700 [facility] Tamsulosin HCl 0.4 mg 03/10/25 17:00 03/10/25 18:32 Tamsulosin Hcl 0.4 Mg Capsule PO Not Given DAILY@1700 [facility] Tizanidine HCl 2 mg 03/10/25 17:00 03/10/25 18:32 Tizanidine Hcl 2 Mg Tablet PO Not Given BID [facility] Tizanidine HCl 2 mg 03/11/25 13:00 Tizanidine Hcl 2 Mg Tablet PO SuTuThSa@1300 [facility] Tramadol HCl 50 mg 03/10/25 08:22 Tramadol Hcl (*Crx) 50 Mg Tablet PO Q4H PRN Pain (Scale Score 4-6) Radiology Results: ITS Impressions Chest CTA 03/09/25 20:53 IMPRESSION: No pulmonary embolus. No thoracic aortic dissection. Significant enlargement of the main pulmonary artery, consistent with pulmonary hypertension. Redemonstration of cardiomegaly. Extensive mediastinal and supraclavicular lymphadenopathy, unchanged from prior. Bibasilar consolidation with small bilateral pleural effusions. Chest X-Ray 03/11/25 06:12 Impression: Mild to moderate pulmonary edema with central congestive change and mild bibasilar atelectasis. Stable cardiomegaly. Labs Labs: Laboratory Results - last 24 hr 03/10/25 03/10/25 03/10/25 14:38 15:19 16:27 WBC RBC Hgb Hct MCV MCH MCHC RDW Plt Count MPV % Immature Plt Fraction Sodium 141 Potassium 3.9 Chloride 105 Carbon Dioxide 25 Anion Gap 11 BUN 33 H D Creatinine 4.33 H Estim Creat Clear Calc 18 Estimated GFR 14 L Glucose 97 POC Capillary Glucose 65 76 Calcium 8.5 Phosphorus Magnesium Albumin 03/10/25 03/10/25 03/11/25 19:01 20:04 04:11 WBC 4.5 RBC 2.49 L Hgb 7.8 L Hct 26.4 L MCV 106.0 H MCH 31.3 MCHC 29.5 L RDW 16.8 H Plt Count 64 L MPV 13.7 H % Immature Plt Fraction 6.0 Sodium 141 Potassium 4.2 Chloride 106 Carbon Dioxide 26 Anion Gap 9 BUN 40 H Creatinine 5.61 H Estim Creat Clear Calc 14 Estimated GFR 10 L Glucose 58 L* POC Capillary Glucose 58 L* 108 H Calcium 8.5 Phosphorus 3.7 Magnesium 2.2 Albumin 2.8 L 03/11/25 03/11/25 05:41 08:34 WBC RBC Hgb Hct MCV MCH MCHC RDW Plt Count MPV % Immature Plt Fraction Sodium Potassium Chloride Carbon Dioxide Anion Gap BUN Creatinine Estim Creat Clear Calc Estimated GFR Glucose POC Capillary Glucose 112 H 73 Calcium Phosphorus Magnesium Albumin
--- NOTE | 2025-03-11 10:12 | IVDEFINITY ---
Prior to administration of IV Definity the patient was educated on the risks and benefits of the imaging enhancing agent including potential adverse side effects. The patient verbalized understanding. Allergies were verified. No exclusion criteria were identified and at least one of the following inclusion criteria were met: 1) physician request, 2) patient technically difficult to image (per the [place] [employer] guidelines of two or more segments not discernable within the apical view), or 3) questionable left ventricular function. ?
--- NOTE | 2025-03-11 10:34 | P.CDI_ITS ---
<Statement entered by Judy Malik MD - 03/14/25 07:57> This documentation has been reviewed and approved. non cardiogenic. related to missing dialysis CDI Query Clarification Request Please clarify if the fluid overload was noncardiogenic in nature and type and acuity of CHF. The medical chart reflects the followin) Type 2 diabetes mellitus: Code(s): E11.9 - Type 2 diabetes mellitus without complications Status: Acute (2) Fluid overload: Code(s): E87.70 - Fluid overload, unspecified Status: Acute (3) Respiratory failure: Code(s): J96.90 - Respiratory failure, unspecified, unspecified whether with hypoxia or hypercapnia Status: Acute (4) Weakness: Code(s): R53.1 - Weakness Status: Acute (5) Altered mental status: Code(s): R41.82 - Altered mental status, unspecified Status: Acute Plan 59-year-old male with a history of ESRD on hemodialysis Saturday at [facility] followed by Dr. Almodovar, chronic anemia, paroxysmal atrial fibrillation, combined systolic and diastolic heart failure, CAD status post 4 vessel bypass, hypertension, hyperlipidemia, [id number] diabetes mellitus, bilateral BKA and other comorbidities who presents to [facility] ER on 03/10/2025 from [facility] due to shortness of breath, weakness, confusion. Reportedly the patient was saturating 80% on room air, he has been refusing to go to at dialysis for 6 days prior to admission. Hypoxic in the ER in tachypneic, placed on BiPAP with improvement in his respiratory status. ABG demonstrated respiratory alkalosis with persistent hypoxia on 4 L nasal cannula. He was also hyperkalemic and received bicarb insulin and dextrose and received fluids. (1) Bradycardia: Code(s): R00.1 - Bradycardia, unspecified Status: Acute Plan 59-year-old male with history of CAD status post CABG x 4 in 2018 (torres to LAD, sequential SVG graft to PDA, RPLV, left radial to LCX), post op AFib but without recurrence, might chronic systolic and diastolic heart failure (LVEF 50-55% in 03/2024), history of smoking, hypertension, dyslipidemia, CAD status post bilateral BKA, diabetes mellitus, diabetic peripheral neuropathy, anxiety, depression, obstructive sleep apnea not using CPAP, ESRD requiring HD, chronic anemia with lethargy and shortness of breath Sinus bradycardia-asymptomatic Acute hypoxic respiratory failure causing lethargy-improved with BiPAP Shortness of breath-improved with BiPAP CAD status post CABG x4-no angina Chronic systolic and diastolic heart failure with LVEF 50-55% in 03/2025 Plan: -Patient appears to be asymptomatic from bradycardia. He had prior workup with event monitor for 13 days in 03/2024 which showed sinus bradycardia with 1st and second-degree AV block, PACs, PVCs, and no high degree block. Review of EKGs during this admission shows sinus rhythm with first-degree AV block; cannot rule out junctional rhythm with certainty. Recommend continue EP evaluation as outpatient. Event monitor at discharge -Patient had lethargy prior to presentation. This is most likely secondary to hypoxia as his mentation is improved with BiPAP 03/10 documentation: Plan Patient has fluid overload due to skipping hemodialysis. The patient had had subsequent hyperkalemia which was treated. Nephrology has been consulted for hemodialysis management with anticipate hemodialysis in a.m.. Fluid overload as resulted in acute hypoxic respiratory failure needing BiPAP support. Patient was pulling large tidal volumes on BiPAP settings of 12/6 subsequently I decrease the patient's pressures to 10/6 with improved tidal volumes to was leave 450 and 600. Will wean BiPAP support after dialysis. Patient has had a junctional bradycardia but he has had this rhythm in the past. I suspect is exacerbated by the patient's hyperkalemia. Will resume the patient's home midodrine and phosphate binder.. If the patient continues to refuse dialysis we may need to have discussion with the patient's family regarding goals of care. 03/09 CXR: Impression: 1: Right perihilar airspace disease, suspicious for pneumonia. 2: Small right pleural effusion. 03/10 CXR: IMPRESSION: Bilateral basal pneumonia. Underlying pulmonary edema is not excluded 03/11 CXR: Impression: Mild to moderate pulmonary edema with central congestive change and mild bibasilar atelectasis. Stable cardiomegaly.
[2025-03-11] MEDS: OMEGA 3 POLYUNSAT FATTY ACIDS 1 GM CAP PO (10:42)
[2025-03-11] MEDS: FOLIC ACID 1 MG TABLET PO (10:42)
[2025-03-11] MEDS: MIDODRINE HCL 10 MG TABLET PO ×2 (10:42→16:19)
[2025-03-11] MEDS: FAMOTIDINE 10 MG TABLET PO (10:42)
[2025-03-11] MEDS: TIZANIDINE HCL 2 MG TABLET PO ×2 (10:42→16:18)
[2025-03-11] MEDS: MULTIVITAMINS THERAPEUTIC TAB (*BKC) 1 TABLET PO (10:43)
[2025-03-11] MEDS: FERROUS SULFATE 325 MG TABLET DR BY MOUTH (10:43)
[2025-03-11] MEDS: ASPIRIN 325 MG ENTERIC TABLET PO (10:43)
--- NOTE | 2025-03-11 13:08 | P.PNNP_ITS ---
Progress Note: A&P Assessment and Plan (1) ESRD (end stage renal disease): Code(s): N18.6 - End stage renal disease Status: Chronic Assessment and Plan: * HD tomorrow * continue M/W/F schedule while hospitalized * follow electrolytes, volume status, and clearance (2) Acute hypoxemic respiratory failure: Code(s): J96.01 - Acute respiratory failure with hypoxia Status: Resolved Assessment and Plan: * hypoxia noted in ER * supplemental oxygen and BiPAP support * presumably due to volume overload (and missed HD treatments * concern for possible pneumonia on admission but this seems less likely * BiPAP support as needed * wean supplemental oxygen (3) Anemia: Code(s): D64.9 - Anemia, unspecified Status: Chronic Assessment and Plan: * due to ESRD and possibly worsened by acute illness * Epogen with HD * follow trend of H/H (4) Fluid overload: Qualifiers: Hypervolemia type: other Qualified Code(s): E87.79 - Other fluid overload Code(s): E87.70 - Fluid overload, unspecified Status: Acute Assessment and Plan: * presumed etiology of #2 * fluid removal as tolerated by hemodynamics * follow respiratory status (5) Altered mental status: Code(s): R41.82 - Altered mental status, unspecified Status: Acute Assessment and Plan: * as noted on presentation * slow improvement noted * suspect secondary to missed dialysis treatments and hypoxa * CT of head negative (6) Diabetes mellitus with multiple complications: Code(s): E11.8 - Type 2 diabetes mellitus with unspecified complications Status: Chronic Assessment and Plan: * follow Accu-Cheks * glycemic control per hospitalist Will continue to follow. L Subjective Date/time seen: 03/11/25 13:08 Interval history: Follow-up for end stage renal disease on hemodialysis. Tolerated dialysis treatment yesterday without any issues or problems; no acute complaints voiced at the time of my visit; mentation still does not appear back to baseline as on/off confusion persists in association with lethargy; no apparent distress noted when seen; not very conversive either (but not much so even at baseline). Exam 2 Narrative: General: WD/WN male in NAD Heart: normal S1 and S2; no rub Lungs: coarse with few crackles at bases Abdomen: soft, nontender, nondistended, positive bowel sounds; s/p bilateral BKAs Extremities: no cyanosis or clubbing; trace edema Skin: warm and dry Objective Data Vital Signs Vital Signs: Vital Signs Temp Pulse Resp BP Pulse Ox O2 Del Method O2 Flow Rate 03/11/25 12:00 99.3 F 67 16 104/46 L 100 03/11/25 08:00 99.7 F H 77 18 114/46 L 94 03/11/25 08:00 67 03/11/25 08:00 64 20 95 Nasal Cannula 3 03/11/25 07:36 95 Nasal Cannula 3 03/11/25 06:00 64 03/11/25 04:21 57 L 20 95 Nasal Cannula 3 03/11/25 04:00 55 L 03/11/25 03:51 97.7 F 85 17 130/62 96 03/11/25 03:47 60 96 Nasal Cannula 3 03/11/25 03:14 59 L 20 96 Nasal Cannula 3 03/11/25 02:00 63 03/11/25 00:30 57 L 16 140/77 97 03/11/25 00:00 58 L 03/11/25 00:00 95 Nasal Cannula 2 03/10/25 23:55 97.7 F 95 17 118/42 L 95 03/10/25 23:30 62 18 118/52 L 95 03/10/25 22:53 68 20 95 Nasal Cannula 3 03/10/25 22:30 72 18 118/82 90 03/10/25 22:15 62 18 110/45 L 96 03/10/25 22:00 60 03/10/25 22:00 58 L 18 129/53 L 98 03/10/25 21:45 60 18 118/41 L 97 03/10/25 21:30 63 18 121/43 L 98 03/10/25 21:30 63 16 121/43 L 98 03/10/25 20:30 84 18 144/45 H 94 03/10/25 20:03 65 16 100 BiPAP 03/10/25 20:00 66 03/10/25 20:00 91 Nasal Cannula 2 03/10/25 19:30 85 16 128/80 93 03/10/25 19:22 99.0 F 54 L 16 121/40 L 100 03/10/25 19:15 78 18 116/77 94 03/10/25 18:45 98.7 F 56 L 12 108/32 L 96 03/10/25 18:30 97.6 F 64 12 116/31 L 99 Intake/Output Intake/Output: Intake & Output 03/08/25 03/09/25 03/10/25 03/11/25 23:59 23:59 23:59 23:59 Intake Total 300 730 Output Total 1999 Balance 300 -1999 730 Meds/Results Medications: Active Medications Generic Name Dose Route Start Last Admin Trade Name Saulo PRN Reason Stop Dose Admin Acetaminophen 650 mg 03/10/25 08:22 Acetaminophen 325 Mg Tablet PO Q6H PRN Pain (Scale Score 1-3) Aspirin 325 mg 03/11/25 09:00 03/11/25 10:43 Aspirin 325 Mg Enteric Tablet PO 325 mg QAM SALVADOR Administration Atorvastatin Calcium 40 mg 03/10/25 21:00 03/10/25 21:31 Atorvastatin 40 Mg Tablet PO 40 mg HS SAL[facility]ADOR Administration Dextrose 12.5 gm 03/10/25 08:32 03/11/25 05:10 Dextrose 50% 25 Gm/50 Ml Syringe IV PUSH 12.5 gm PRN PRN Administration Hypoglycemia Protocol Famotidine 10 mg 03/11/25 09:00 03/11/25 10:42 Famotidine 10 Mg Tablet PO 10 mg DAILY [facility] Administration Ferrous Sulfate 325 mg 03/10/25 09:00 03/11/25 10:43 Ferrous Sulfate [address] BY MOUTH 325 mg DAILY SALVADOR Administration Fish Oil 1 gm 03/10/25 11:00 03/11/25 10:42 [place] 3 Polyunsat Fatty Acids 1 Gm Cap PO 1 gm DAILY SAL[facility]ADOR Administration Folic Acid 1 mg 03/10/25 09:00 03/11/25 10:42 Folic Acid 1 Mg Tablet PO 1 mg DAILY [facility]ADOR Administration Gabapentin 200 mg 03/10/25 21:00 03/10/25 21:31 Gabapentin 100 Mg Capsule PO 200 mg HS [facility]ADOR Administration Glucagon 1 mg 03/10/25 08:32 Glucagon For Inj 1 Mg Vial IM PRN PRN Hypoglycemia Protocol Glucose 15 gm 03/10/25 08:32 Glucose Oral Gel 15 Gm Of Glucse In 37.5 Gm Tube PO PRN PRN Hypoglycemia Protocol Albumin Human 50 mls @ 999 mls/hr 03/10/25 00:42 Albutein IVPB 04/09/25 00:41 Q10M PRN HYPOTENSION Dextrose 1,000 mls @ 100 mls/hr 03/10/25 08:32 Dextrose 5% 1,000 Ml IVPB PRN PRN Hypoglycemia Protocol Insulin Aspart 2 - 5 units 03/10/25 12:00 03/11/25 16:17 Insulin Aspart (*Bkc) 100 Units/Ml SUB-Q Not Given TIDWM [facility]OR Protocol Meclizine HCl 25 mg 03/10/25 08:22 Meclizine Hcl 25 Mg Tablet PO Q8H PRN Dizziness Midodrine 10 mg 03/10/25 09:00 03/11/25 16:19 Midodrine Hcl 10 Mg Tablet PO 10 mg 0800,1400 [facility] Administration Mirtazapine 15 mg 03/10/25 21:00 03/10/25 21:31 Mirtazapine 15 Mg Tablet PO 15 mg HS SALVADOR Administration Mirtazapine 7.5 mg 03/10/25 21:00 03/10/25 21:31 Mirtazapine 7.5 Mg Tablet PO 7.5 mg HS [facility]ADOR Administration Multi-Ingred Cream/Lotion/Oil/Oint 1 applic 03/10/25 18:00 03/11/25 16:19 Eucerin Cream 120 Gm Jar TOPICAL 1 applic QPM [facility]OR Administration Multivitamins Therapeutic 1 tablet 03/10/25 09:00 03/11/25 10:43 Multivitamins Therapeutic Tab (*Bkc) PO 1 tablet DAILY [facility] Administration Sertraline HCl 25 mg 03/10/25 21:00 03/10/25 21:31 Sertraline Hcl 25 Mg Tablet PO 25 mg HS [facility]ADOR Administration Sevelamer Carbonate 800 mg 03/10/25 17:00 03/11/25 16:19 Sevelamer Carbonate 800 Mg Tablet PO 800 mg DAILY@1700 [facility] Administration Tamsulosin HCl 0.4 mg 03/10/25 17:00 03/11/25 16:19 Tamsulosin Hcl 0.4 Mg Capsule PO 0.4 mg DAILY@1700 [facility] Administration Tizanidine HCl 2 mg 03/10/25 17:00 03/11/25 16:18 Tizanidine Hcl 2 Mg Tablet PO Not Given BID [facility]OR Tizanidine HCl 2 mg 03/11/25 13:00 03/11/25 16:18 Tizanidine Hcl 2 Mg Tablet PO 2 mg SuTuThSa@1300 [facility] Administration Tramadol HCl 50 mg 03/10/25 08:22 Tramadol Hcl (*Crx) 50 Mg Tablet PO Q4H PRN Pain (Scale Score 4-6) Radiology Results: ITS Impressions Chest CTA 03/09/25 20:53 IMPRESSION: No pulmonary embolus. No thoracic aortic dissection. Significant enlargement of the main pulmonary artery, consistent with pulmonary hypertension. Redemonstration of cardiomegaly. Extensive mediastinal and supraclavicular lymphadenopathy, unchanged from prior. Bibasilar consolidation with small bilateral pleural effusions. Chest X-Ray 03/11/25 06:12 Impression: Mild to moderate pulmonary edema with central congestive change and mild bibasilar atelectasis. Stable cardiomegaly. Head CT 03/11/25 10:42 Impression: No significant abnormality seen. Labs Labs: Laboratory Tests 03/11/25 04:11 03/11/25 04:11 Calcium 8.5 Phosphorus 3.7 Magnesium 2.2 Albumin 2.8 L Microbiology 03/09/25 14:32 Blood Organism Identification - Preliminary 03/09/25 14:46 Blood Organism Identification - Preliminary 03/09/25 14:13 Sputum Sputum White Blood Cells - Final 03/09/25 14:13 Sputum Sputum Epithelial Cells - Final 03/09/25 14:13 Sputum Gram Stain Sputum Result 1 - Final 03/09/25 14:13 Sputum Gram Stain Sputum Result 2 - Final 03/09/25 14:13 Sputum Gram Stain Sputum Result 3 - Final 03/09/25 14:13 Sputum Gram Stain Sputum Result 4 - Final 03/09/25 14:13 Sputum Gram Stain Evaluation - Final 03/09/25 14:13 Sputum Sputum Culture - Preliminary
[2025-03-11] MEDS: EUCERIN CREAM 120 GM JAR 1 APPLIC TOPICAL (16:19)
[2025-03-11] MEDS: SEVELAMER CARBONATE 800 MG TABLET PO (16:19)
[2025-03-11] MEDS: TAMSULOSIN HCL 0.4 MG CAPSULE PO (16:19)
[2025-03-11] MEDS: MIRTAZAPINE 15 MG TABLET PO (21:22)
[2025-03-11] MEDS: GABAPENTIN 100 MG CAPSULE 200 MG PO (21:22)
[2025-03-11] MEDS: SERTRALINE HCL 25 MG TABLET PO (21:22)
[2025-03-11] MEDS: MIRTAZAPINE 7.5 MG TABLET PO (21:22)
[2025-03-11] MEDS: ATORVASTATIN 40 MG TABLET PO (21:22)
[2025-03-12] VITALS (37 sets, daily range): BP systolic 103–142; BP diastolic 41–82; PULSE 39–71; RESP 16–20; TEMP 36.4–37; O2SAT 92–100
[2025-03-12 04:25] LABS: Hematocrit 27.3 % (42.0-52.0); Hemoglobin 8.3 g/dL (14.0-18.0); Mean Corpuscular HGB Conc 30.4 g/dl (32-36); Mean Corpuscular Hemoglobin 32.0 pg (26-34); Mean Corpuscular Volume 105.4 fl (80-100); Platelet Count Result 58 k/mm3 (150-375); Red Blood Count 2.59 M/mm3 (4.6-6.20); White Blood Count 4.4 K/mm3 (4.5-10.0)
[2025-03-12 04:39] LABS: Albumin Level 2.8 g/dL (3.5-5.1); Anion Gap 10 mmol/L (4-12); Blood Urea Nitrogen 59 mg/dL (9-20); Calcium 8.5 mg/dL (8.4-10.2); Carbon Dioxide 25 mmol/L (22-30); Chloride 106 mmol/L (98-107); Estimated CRCL calculation 12 ml/min; Estimated Glomerular Filt Rate 9; Glucose 78 mg/dL (65-110); Magnesium 2.4 mg/dL (1.6-2.3); Potassium 4.4 mmol/L (3.4-5.0); Sodium 141 mmol/L (137-145)
[2025-03-12] MEDS: DEXTROSE 50% 25 GM/50 ML SYRINGE IV PUSH (07:38)
[2025-03-12] MEDS: EPOETIN ALFA-EPBX 10,000 UNITS/ML VIAL 10000 UNITS IV PUSH (09:29)
[2025-03-12] MEDS: SODIUM CHLORIDE 0.9% IV 1,000 ML 999 ML IV CONT (09:29)
--- NOTE | 2025-03-12 09:50 | P.PNNP_ITS ---
Progress Note: A&P Assessment and Plan (1) ESRD (end stage renal disease): Code(s): N18.6 - End stage renal disease Status: Chronic Assessment and Plan: * HD today * continue M/W/F schedule while hospitalized * follow electrolytes, volume status, and clearance (2) Acute hypoxemic respiratory failure: Code(s): J96.01 - Acute respiratory failure with hypoxia Status: Acute Assessment and Plan: * hypoxia noted in ER * presumably due to volume overload (and missed HD treatments) * push fluid removal/ultrafiltration as tolerated by hemodynamics * concern for possible pneumonia on admission but this seems less likely * BiPAP support as needed * wean supplemental oxygen (3) Anemia: Code(s): D64.9 - Anemia, unspecified Status: Chronic Assessment and Plan: * due to ESRD and possibly worsened by acute illness * Epogen with HD * follow trend of H/H (4) Fluid overload: Qualifiers: Hypervolemia type: other Qualified Code(s): E87.79 - Other fluid overload Code(s): E87.70 - Fluid overload, unspecified Status: Acute Assessment and Plan: * presumed etiology of #2 * fluid removal as tolerated by hemodynamics * follow respiratory status (5) Altered mental status: Code(s): R41.82 - Altered mental status, unspecified Status: Acute Assessment and Plan: * as noted on presentation * slow improvement noted * suspect secondary to missed dialysis treatments and hypoxa * CT of head negative (6) Diabetes mellitus with multiple complications: Code(s): E11.8 - Type 2 diabetes mellitus with unspecified complications Status: Chronic Assessment and Plan: * follow Accu-Cheks * glycemic control per hospitalist Will continue to follow. L Subjective Date/time seen: 03/12/25 09:50 Interval history: Follow-up for end stage renal disease on hemodialysis. Tolerating dialysis treatment at the time of my visit (seen on HD at 09:40am); still somewhat sleepy/lethargic when seen -- awakens to stimulation but then quickly falls back asleep; no other issues/events overnight or earlier this morning. Exam 2 Narrative: General: WD/WN male in NAD Heart: normal S1 and S2; no rub Lungs: coarse with bibasilar crackles Abdomen: soft, nontender, nondistended, positive bowel sounds; s/p bilateral BKAs Extremities: no cyanosis or clubbing; trace edema Skin: warm and intact Objective Data Vital Signs Vital Signs: Vital Signs Temp Pulse Resp BP Pulse Ox O2 Del Method O2 Flow Rate 03/12/25 09:45 59 L 133/76 03/12/25 09:30 59 L 122/56 L 03/12/25 09:15 56 L 117/52 L 03/12/25 09:00 50 L 110/58 L 03/12/25 08:45 51 L 113/62 03/12/25 08:30 45 L 116/53 L 03/12/25 08:16 97.9 F 44 L 18 103/41 L 98 03/12/25 08:15 53 L 111/56 L 03/12/25 08:02 39 L 111/51 L 03/12/25 08:00 47 L 03/12/25 08:00 98 Nasal Cannula 2 03/12/25 07:50 2 03/12/25 07:50 97.7 F 54 L 18 113/61 100 03/12/25 06:00 54 L 03/12/25 04:00 46 L 03/12/25 04:00 97.6 F 49 L 17 116/44 L 100 03/12/25 03:36 99 BiPAP 03/12/25 02:55 49 L 16 99 BiPAP 03/12/25 02:00 46 L 03/12/25 00:00 52 L 03/12/25 00:00 98 F 51 L 18 120/50 L 100 03/11/25 23:45 54 L 18 100 BiPAP 03/11/25 23:43 55 L 20 99 Nasal Cannula 3 03/11/25 22:00 46 L 03/11/25 21:08 99 Nasal Cannula 3 03/11/25 20:00 57 L 03/11/25 20:00 99 Nasal Cannula 3 03/11/25 20:00 98 F 59 L 20 98/35 L 99 03/11/25 18:00 60 03/11/25 17:02 98 Nasal Cannula 3 Intake/Output Intake/Output: Intake & Output 03/09/25 03/10/25 03/11/25 03/12/25 23:59 23:59 23:59 23:59 Intake Total 300 1280 440 Output Total 1999 3000 Balance 300 -1999 1280 -2560 Meds/Results Medications: Active Medications Generic Name Dose Route Start Last Admin Trade Name Saulo PRN Reason Stop Dose Admin Acetaminophen 650 mg 03/10/25 08:22 03/12/25 12:10 Acetaminophen 325 Mg Tablet PO 650 mg Q6H PRN Administration Pain (Scale Score 1-3) Aspirin 325 mg 03/11/25 09:00 03/12/25 12:09 Aspirin 325 Mg Enteric Tablet PO 325 mg QAM [facility]AD[facility] Administration Atorvastatin Calcium 40 mg 03/10/25 21:00 03/11/25 21:22 Atorvastatin 40 Mg Tablet PO 40 mg HS [facility]ADOR Administration Dextrose 12.5 gm 03/10/25 08:32 03/12/25 07:38 Dextrose 50% 25 Gm/50 Ml Syringe IV PUSH 12.5 gm PRN PRN Administration Hypoglycemia Protocol Epoetin Bradford-epbx 10,000 units 03/12/25 18:43 03/12/25 09:29 Epoetin Bradford-Epbx 10,000 Units/Ml Vial IV PUSH 03/12/25 18:44 10,000 units ONCE ONE Administration Famotidine 10 mg 03/11/25 09:00 03/12/25 12:10 Famotidine 10 Mg Tablet PO 10 mg DAILY [facility] Administration Ferrous Sulfate 325 mg 03/10/25 09:00 03/12/25 12:10 Ferrous Sulfate [address] BY MOUTH 325 mg DAILY [facility]AD[facility] Administration Fish Oil 1 gm 03/10/25 11:00 03/12/25 12:09 [place] 3 Polyunsat Fatty Acids 1 Gm Cap PO 1 gm DAILY SAL[facility]ADOR Administration Folic Acid 1 mg 03/10/25 09:00 03/12/25 12:10 Folic Acid 1 Mg Tablet PO 1 mg DAILY [facility]AD[facility] Administration Gabapentin 200 mg 03/10/25 21:00 03/11/25 21:22 Gabapentin 100 Mg Capsule PO 200 mg HS SALVADOR Administration Glucagon 1 mg 03/10/25 08:32 Glucagon For Inj 1 Mg Vial IM PRN PRN Hypoglycemia Protocol Glucose 15 gm 03/10/25 08:32 Glucose Oral Gel 15 Gm Of Glucse In 37.5 Gm Tube PO PRN PRN Hypoglycemia Protocol Albumin Human 50 mls @ 999 mls/hr 03/10/25 00:42 Albutein IVPB 04/09/25 00:41 Q10M PRN HYPOTENSION Dextrose 1,000 mls @ 100 mls/hr 03/10/25 08:32 Dextrose 5% 1,000 Ml IVPB PRN PRN Hypoglycemia Protocol Insulin Aspart 2 - 5 units 03/10/25 12:00 03/12/25 16:13 Insulin Aspart (*Bkc) 100 Units/Ml SUB-Q Not Given TIDWM [facility] Protocol Meclizine HCl 25 mg 03/10/25 08:22 Meclizine Hcl 25 Mg Tablet PO Q8H PRN Dizziness Midodrine 10 mg 03/10/25 09:00 03/12/25 14:46 Midodrine Hcl 10 Mg Tablet PO 10 mg 0800,1400 [facility] Administration Mirtazapine 15 mg 03/10/25 21:00 03/11/25 21:22 Mirtazapine 15 Mg Tablet PO 15 mg HS SALVADOR Administration Mirtazapine 7.5 mg 03/10/25 21:00 03/11/25 21:22 Mirtazapine 7.5 Mg Tablet PO 7.5 mg HS SALVADOR Administration Multi-Ingred Cream/Lotion/Oil/Oint 1 applic 03/10/25 18:00 03/11/25 16:19 Eucerin Cream 120 Gm Jar TOPICAL 1 applic QPM [facility] Administration Multivitamins Therapeutic 1 tablet 03/10/25 09:00 03/12/25 12:10 Multivitamins Therapeutic Tab (*Bkc) PO 1 tablet DAILY [facility] Administration Sertraline HCl 25 mg 03/10/25 21:00 03/11/25 21:22 Sertraline Hcl 25 Mg Tablet PO 25 mg HS SALVADOR Administration Sevelamer Carbonate 800 mg 03/10/25 17:00 03/11/25 16:19 Sevelamer Carbonate 800 Mg Tablet PO 800 mg DAILY@1700 [facility] Administration Tamsulosin HCl 0.4 mg 03/10/25 17:00 03/11/25 16:19 Tamsulosin Hcl 0.4 Mg Capsule PO 0.4 mg DAILY@1700 [facility] Administration Tizanidine HCl 2 mg 03/10/25 17:00 03/12/25 08:03 Tizanidine Hcl 2 Mg Tablet PO Not Given BID [facility]VADOR Tizanidine HCl 2 mg 03/11/25 13:00 03/11/25 16:18 Tizanidine Hcl 2 Mg Tablet PO 2 mg SuTuThSa@1300 [facility] Administration Tramadol HCl 50 mg 03/10/25 08:22 Tramadol Hcl (*Crx) 50 Mg Tablet PO Q4H PRN Pain (Scale Score 4-6) Radiology Results: ITS Impressions Chest CTA 03/09/25 20:53 IMPRESSION: No pulmonary embolus. No thoracic aortic dissection. Significant enlargement of the main pulmonary artery, consistent with pulmonary hypertension. Redemonstration of cardiomegaly. Extensive mediastinal and supraclavicular lymphadenopathy, unchanged from prior. Bibasilar consolidation with small bilateral pleural effusions. Chest X-Ray 03/11/25 06:12 Impression: Mild to moderate pulmonary edema with central congestive change and mild bibasilar atelectasis. Stable cardiomegaly. Head CT 03/11/25 10:42 Impression: No significant abnormality seen. Labs Labs: Laboratory Tests 03/12/25 04:09 03/12/25 04:09 Calcium 8.5 Phosphorus 3.9 Magnesium 2.4 H Albumin 2.8 L Microbiology 03/09/25 14:13 Sputum Sputum White Blood Cells - Final 03/09/25 14:13 Sputum Sputum Epithelial Cells - Final 03/09/25 14:13 Sputum Gram Stain Sputum Result 1 - Final 03/09/25 14:13 Sputum Gram Stain Sputum Result 2 - Final 03/09/25 14:13 Sputum Gram Stain Sputum Result 3 - Final 03/09/25 14:13 Sputum Gram Stain Sputum Result 4 - Final 03/09/25 14:13 Sputum Gram Stain Evaluation - Final 03/09/25 14:13 Sputum Sputum Culture - Preliminary 03/09/25 14:32 Blood Organism Identification - Preliminary 03/09/25 14:46 Blood Organism Identification - Preliminary
--- NOTE | 2025-03-12 09:51 | P.PNIM_ITS ---
Progress Note: A&P Assessment and Plan (1) Type 2 diabetes mellitus: Code(s): E11.9 - Type 2 diabetes mellitus without complications Status: Acute (2) Fluid overload: Qualifiers: Hypervolemia type: other Qualified Code(s): E87.79 - Other fluid overload Code(s): E87.70 - Fluid overload, unspecified Status: Acute (3) Respiratory failure: Code(s): J96.90 - Respiratory failure, unspecified, unspecified whether with hypoxia or hypercapnia Status: Acute (4) Weakness: Code(s): R53.1 - Weakness Status: Acute (5) Altered mental status: Code(s): R41.82 - Altered mental status, unspecified Status: Acute Plan 59-year-old male with a history of ESRD on hemodialysis Saturday at [facility] followed by Dr. Almodovar, chronic anemia, paroxysmal atrial fibrillation, combined systolic and diastolic heart failure, CAD status post 4 vessel bypass, hypertension, hyperlipidemia, [id number] diabetes mellitus, bilateral BKA and other comorbidities who presents to [facility] ER on 03/10/2025 from [facility] due to shortness of breath, weakness, confusion. Reportedly the patient was saturating 80% on room air, he has been refusing to go to at dialysis for 6 days prior to admission. Hypoxic in the ER in tachypneic, placed on BiPAP with improvement in his respiratory status. ABG demonstrated respiratory alkalosis w ith persistent hypoxia on 4 L nasal cannula. He was also hyperkalemic and received bicarb insulin and dextrose and received fluids. ----- Underwent dialysis on 03/10/2025. ----- 03/11/2025: Currently on 2 L nasal cannula. No respiratory distress. Still has bibasilar crackles, chest x-ray demonstrating pulmonary vascular congestion. You may see greater improvement with another session of dialysis, nephrology following. He is A&O x2 and reportedly his baseline is A&O x3. Check CT head without contrast. Possibly polypharmacy in combination with missing dialysis and increased concentrations. Patient had glucose 57 this morning and reportedly that has improved to 74. Received [id number] units Retacrit on 03/10/2025. Has chronic anemia, avoid pharmacological DVT prophylaxis. On aspirin 325 daily per Cardiology. Pending echocardiogram. ----- 03/12/2025: Undergoing dialysis again today currently on 2 L. possibly encephalopathy related to hypoxia or residual effects of anoxia. CT head without acute abnormalities. At this time we will hold tizanidine, the p.r.n. tramadol, gabapentin as his serum concentrations may have accumulated during missing dialysis. Continue dialysis with Nephrology continue to monitor. Cultures so far negative. Afebrile. DNR. Saline lock IV. Subjective Date/time seen: 03/12/25 09:51 Interval history: No major acute overnight events. Patient seen in dialysis center. Is lethargic, wakes up but promptly falls back to sleep. Follows commands intermittently. Does not converse very much. Review of Systems Review of Systems: ROS unobtainable: Yes unobtainable due to mental status Exam Const: General: comfortable and no acute distress HENMT: Mouth: Yes dry mucous membranes Eyes: Pupils: Equal, round and reactive pupils present Neck: Neck: supple Resp: Effort & Inspection: normal respiratory effort Other: Limited participation. Bibasilar crackles Cardio: Rate: regular rate Rhythm: regular rhythm Heart sounds: no gallops, no murmurs and no rubs Extrem: General: no edema Other: Bilateral BKA Objective Data Vital Signs Vital Signs: Vital Signs - 24 hr 03/11/25 10:00 03/11/25 12:00 03/11/25 12:00 Temperature 99.3 F Pulse Rate 68 67 64 Respiratory Rate 16 20 Blood Pressure 104/46 L Pulse Oximetry 100 95 Oxygen Delivery Nasal Cannula Oxygen Flow Rate 3 Fraction of Inspired Oxygen 32 03/11/25 12:00 03/11/25 14:00 03/11/25 16:00 Temperature Pulse Rate 64 73 64 Respiratory Rate 20 Blood Pressure Pulse Oximetry 95 Oxygen Delivery Nasal Cannula Oxygen Flow Rate 3 Fraction of Inspired Oxygen 32 03/11/25 16:00 03/11/25 16:00 03/11/25 17:02 Temperature 99.9 F H Pulse Rate 57 L 63 Respiratory Rate 18 Blood Pressure 136/42 L Pulse Oximetry 97 98 Oxygen Delivery Nasal Cannula Oxygen Flow Rate 3 Fraction of Inspired Oxygen 03/11/25 18:00 03/11/25 20:00 03/11/25 20:00 Temperature 98 F Pulse Rate 60 59 L Respiratory Rate 20 Blood Pressure 98/35 L Pulse Oximetry 99 99 Oxygen Delivery Nasal Cannula Oxygen Flow Rate 3 Fraction of Inspired Oxygen 03/11/25 20:00 03/11/25 21:08 03/11/25 22:00 Temperature Pulse Rate 57 L 46 L Respiratory Rate Blood Pressure Pulse Oximetry 99 Oxygen Delivery Nasal Cannula Oxygen Flow Rate 3 Fraction of Inspired Oxygen 03/11/25 23:43 03/11/25 23:45 03/12/25 00:00 Temperature 98 F Pulse Rate 55 L 54 L 51 L Respiratory Rate 20 18 18 Blood Pressure 120/50 L Pulse Oximetry 99 100 100 Oxygen Delivery Nasal Cannula BiPAP Oxygen Flow Rate 3 Fraction of Inspired Oxygen 03/12/25 00:00 03/12/25 02:00 03/12/25 02:55 Temperature Pulse Rate 52 L 46 L 49 L Respiratory Rate 16 Blood Pressure Pulse Oximetry 99 Oxygen Delivery BiPAP Oxygen Flow Rate Fraction of Inspired Oxygen 03/12/25 03:36 03/12/25 04:00 03/12/25 04:00 Temperature 97.6 F Pulse Rate 49 L 46 L Respiratory Rate 17 Blood Pressure 116/44 L Pulse Oximetry 99 100 Oxygen Delivery BiPAP Oxygen Flow Rate Fraction of Inspired Oxygen 40 03/12/25 06:00 03/12/25 07:50 03/12/25 07:50 Temperature 97.7 F Pulse Rate 54 L 54 L Respiratory Rate 18 Blood Pressure 113/61 Pulse Oximetry 100 Oxygen Delivery Oxygen Flow Rate 2 Fraction of Inspired Oxygen 03/12/25 08:02 03/12/25 08:15 03/12/25 08:16 Temperature 97.9 F Pulse Rate 39 L 53 L 44 L Respiratory Rate 18 Blood Pressure 111/51 L 111/56 L 103/41 L Pulse Oximetry 98 Oxygen Delivery Oxygen Flow Rate Fraction of Inspired Oxygen 03/12/25 08:30 03/12/25 08:45 03/12/25 09:00 Temperature Pulse Rate 45 L 51 L 50 L Respiratory Rate Blood Pressure 116/53 L 113/62 110/58 L Pulse Oximetry Oxygen Delivery Oxygen Flow Rate Fraction of Inspired Oxygen 03/12/25 09:15 03/12/25 09:30 03/12/25 09:45 Temperature Pulse Rate 56 L 59 L 59 L Respiratory Rate Blood Pressure 117/52 L 122/56 L 133/76 Pulse Oximetry Oxygen Delivery Oxygen Flow Rate Fraction of Inspired Oxygen Intake/Output Intake/Output: Intake & Output 03/09/25 03/10/25 03/11/25 03/12/25 23:59 23:59 23:59 23:59 Intake Total 300 1280 200 Output Total 1999 Balance 300 -1999 1280 200 Meds/Results Medications: Active Medications Generic Name Dose Route Start Last Admin Trade Name Freq PRN Reason Stop Dose Admin Acetaminophen 650 mg 03/10/25 08:22 Acetaminophen 325 Mg Tablet PO Q6H PRN Pain (Scale Score 1-3) Aspirin 325 mg 03/11/25 09:00 03/11/25 10:43 Aspirin 325 Mg Enteric Tablet PO 325 mg QAM SALVADOR Administration Atorvastatin Calcium 40 mg 03/10/25 21:00 03/11/25 21:22 Atorvastatin 40 Mg Tablet PO 40 mg HS SALVADOR Administration Dextrose 12.5 gm 03/10/25 08:32 03/12/25 07:38 Dextrose 50% 25 Gm/50 Ml Syringe IV PUSH 12.5 gm PRN PRN Administration Hypoglycemia Protocol Epoetin Bradford-epbx 10,000 units 03/12/25 18:43 03/12/25 09:29 Epoetin Bradford-Epbx 10,000 Units/Ml Vial IV PUSH 03/12/25 18:44 10,000 units ONCE ONE Administration Famotidine 10 mg 03/11/25 09:00 03/11/25 10:42 Famotidine 10 Mg Tablet PO 10 mg DAILY SAL[facility]ADOR Administration Ferrous Sulfate 325 mg 03/10/25 09:00 03/11/25 10:43 Ferrous Sulfate [address] BY MOUTH 325 mg DAILY SALVADOR Administration Fish Oil 1 gm 03/10/25 11:00 03/11/25 10:42 [place] 3 Polyunsat Fatty Acids 1 Gm Cap PO 1 gm DAILY SALVADOR Administration Folic Acid 1 mg 03/10/25 09:00 03/11/25 10:42 Folic Acid 1 Mg Tablet PO 1 mg DAILY SALVADOR Administration Gabapentin 200 mg 03/10/25 21:00 03/11/25 21:22 Gabapentin 100 Mg Capsule PO 200 mg HS SALVADOR Administration Glucagon 1 mg 03/10/25 08:32 Glucagon For Inj 1 Mg Vial IM PRN PRN Hypoglycemia Protocol Glucose 15 gm 03/10/25 08:32 Glucose Oral Gel 15 Gm Of Glucse In 37.5 Gm Tube PO PRN PRN Hypoglycemia Protocol Albumin Human 50 mls @ 999 mls/hr 03/10/25 00:42 Albutein IVPB 04/09/25 00:41 Q10M PRN HYPOTENSION Dextrose 1,000 mls @ 100 mls/hr 03/10/25 08:32 Dextrose 5% 1,000 Ml IVPB PRN PRN Hypoglycemia Protocol Insulin Aspart 2 - 5 units 03/10/25 12:00 03/12/25 08:02 Insulin Aspart (*Bkc) 100 Units/Ml SUB-Q Not Given TIDWM [facility]ADOR Protocol Meclizine HCl 25 mg 03/10/25 08:22 Meclizine Hcl 25 Mg Tablet PO Q8H PRN Dizziness Midodrine 10 mg 03/10/25 09:00 03/11/25 16:19 Midodrine Hcl 10 Mg Tablet PO 10 mg 0800,1400 [facility] Administration Mirtazapine 15 mg 03/10/25 21:00 03/11/25 21:22 Mirtazapine 15 Mg Tablet PO 15 mg HS SALVADOR Administration Mirtazapine 7.5 mg 03/10/25 21:00 03/11/25 21:22 Mirtazapine 7.5 Mg Tablet PO 7.5 mg HS SALVADOR Administration Multi-Ingred Cream/Lotion/Oil/Oint 1 applic 03/10/25 18:00 03/11/25 16:19 Eucerin Cream 120 Gm Jar TOPICAL 1 applic QPM [facility]OR Administration Multivitamins Therapeutic 1 tablet 03/10/25 09:00 03/11/25 10:43 Multivitamins Therapeutic Tab (*Bkc) PO 1 tablet DAILY [facility] Administration Sertraline HCl 25 mg 03/10/25 21:00 03/11/25 21:22 Sertraline Hcl 25 Mg Tablet PO 25 mg HS SALVADOR Administration Sevelamer Carbonate 800 mg 03/10/25 17:00 03/11/25 16:19 Sevelamer Carbonate 800 Mg Tablet PO 800 mg DAILY@1700 [facility] Administration Tamsulosin HCl 0.4 mg 03/10/25 17:00 03/11/25 16:19 Tamsulosin Hcl 0.4 Mg Capsule PO 0.4 mg DAILY@1700 [facility] Administration Tizanidine HCl 2 mg 03/10/25 17:00 03/12/25 08:03 Tizanidine Hcl 2 Mg Tablet PO Not Given BID SAL[facility]ADOR Tizanidine HCl 2 mg 03/11/25 13:00 03/11/25 16:18 Tizanidine Hcl 2 Mg Tablet PO 2 mg SuTuThSa@1300 [facility] Administration Tramadol HCl 50 mg 03/10/25 08:22 Tramadol Hcl (*Crx) 50 Mg Tablet PO Q4H PRN Pain (Scale Score 4-6) Radiology Results: ITS Impressions Chest CTA 03/09/25 20:53 IMPRESSION: No pulmonary embolus. No thoracic aortic dissection. Significant enlargement of the main pulmonary artery, consistent with pulmonary hypertension. Redemonstration of cardiomegaly. Extensive mediastinal and supraclavicular lymphadenopathy, unchanged from prior. Bibasilar consolidation with small bilateral pleural effusions. Chest X-Ray 03/11/25 06:12 Impression: Mild to moderate pulmonary edema with central congestive change and mild bibasilar atelectasis. Stable cardiomegaly. Head CT 03/11/25 10:42 Impression: No significant abnormality seen. Labs Labs: Laboratory Results - last 24 hr 03/11/25 03/11/25 03/11/25 12:03 16:37 19:59 WBC RBC Hgb Hct MCV MCH MCHC RDW Plt Count MPV Sodium Potassium Chloride Carbon Dioxide Anion Gap BUN Creatinine Estim Creat Clear Calc Estimated GFR Glucose POC Capillary Glucose 101 105 106 H Calcium Phosphorus Magnesium Albumin 03/12/25 03/12/25 04:09 07:34 WBC 4.4 L RBC 2.59 L Hgb 8.3 L Hct 27.3 L MCV 105.4 H MCH 32.0 MCHC 30.4 L RDW 16.5 H Plt Count 58 L MPV 12.7 H Sodium 141 Potassium 4.4 Chloride 106 Carbon Dioxide 25 Anion Gap 10 BUN 59 H D Creatinine 6.58 H Estim Creat Clear Calc 12 Estimated GFR 9 L Glucose 78 POC Capillary Glucose 70 Calcium 8.5 Phosphorus 3.9 Magnesium 2.4 H Albumin 2.8 L
[2025-03-12] MEDS: ASPIRIN 325 MG ENTERIC TABLET PO (12:09)
[2025-03-12] MEDS: OMEGA 3 POLYUNSAT FATTY ACIDS 1 GM CAP PO (12:09)
[2025-03-12] MEDS: FAMOTIDINE 10 MG TABLET PO (12:10)
[2025-03-12] MEDS: ACETAMINOPHEN 325 MG TABLET 650 MG PO ×2 (12:10→20:06)
[2025-03-12] MEDS: FERROUS SULFATE 325 MG TABLET DR BY MOUTH (12:10)
[2025-03-12] MEDS: FOLIC ACID 1 MG TABLET PO (12:10)
[2025-03-12] MEDS: MULTIVITAMINS THERAPEUTIC TAB (*BKC) 1 TABLET PO (12:10)
[2025-03-12] MEDS: MIDODRINE HCL 10 MG TABLET PO (14:46)
[2025-03-12] MEDS: EUCERIN CREAM 120 GM JAR 1 APPLIC TOPICAL (17:25)
[2025-03-12] MEDS: ATORVASTATIN 40 MG TABLET PO (20:07)
[2025-03-12] MEDS: MIRTAZAPINE 15 MG TABLET PO (20:07)
[2025-03-12] MEDS: SERTRALINE HCL 25 MG TABLET PO (20:07)
[2025-03-12] MEDS: MIRTAZAPINE 7.5 MG TABLET PO (20:07)
[2025-03-13] VITALS (28 sets, daily range): BP systolic 109–137; BP diastolic 43–73; PULSE 54–88; RESP 14–20; TEMP 36.5–37.7; O2SAT 94–100
--- NOTE | 2025-03-13 01:25 | PC.NURSE ---
Pt is refusing to keep NC or Bipap on. Staff has replaced multiple times, and pt continues to remove. Pt is now being combative and hitting and pushing staff away. Pt is a A&O x [address] Pt continues to remove oxygen sensor as well, that has been replaced multiple times. [facility] NURSE notified and this nurse was instructed to notify family of pt's noncompliance. Called listed contact, and was sent to voice mail, which has a full mailbox and was unable to leave message at this time.
--- NOTE | 2025-03-13 02:35 | PM.EVENT ---
Event Note Event Note Event Note: The patient's nurse called with concerns as the patient is refusing to wear his BiPAP and is getting a bit aggressive with staff when they tried to get him back on the BiPAP. I came to evaluate the patient and he is alert and oriented x3 (name, age, situation). He asks for his water bottle and was able to drink getting himself without help. He also asked of his cellphone was charged and was able to enter his past code in order to unlock the phone. He is capable of making his own decisions and reiterated his DNR/DNI status. The patient is allowed to choose whether not he is going to wear the BiPAP for go through with dialysis tomorrow.
[2025-03-13 04:45] LABS: Hematocrit 27.8 % (42.0-52.0); Hemoglobin 8.3 g/dL (14.0-18.0); Immature Platelet Fraction Pct 6.6 % (0.9-11.2); Mean Corpuscular HGB Conc 29.9 g/dl (32-36); Mean Corpuscular Hemoglobin 31.2 pg (26-34); Mean Corpuscular Volume 104.5 fl (80-100); Platelet Count Result 62 k/mm3 (150-375); Red Blood Count 2.66 M/mm3 (4.6-6.20); White Blood Count 4.8 K/mm3 (4.5-10.0)
[2025-03-13 05:00] LABS: Albumin Level 2.8 g/dL (3.5-5.1); Anion Gap 7 mmol/L (4-12); Blood Urea Nitrogen 31 mg/dL (9-20); Calcium 8.1 mg/dL (8.4-10.2); Carbon Dioxide 34 mmol/L (22-30); Chloride 99 mmol/L (98-107); Estimated CRCL calculation 19 ml/min; Estimated Glomerular Filt Rate 15; Glucose 98 mg/dL (65-110); Magnesium 2.1 mg/dL (1.6-2.3); Potassium 3.4 mmol/L (3.4-5.0); Sodium 140 mmol/L (137-145)
[2025-03-13] MEDS: FOLIC ACID 1 MG TABLET PO (08:17)
[2025-03-13] MEDS: FERROUS SULFATE 325 MG TABLET DR BY MOUTH (08:17)
[2025-03-13] MEDS: ACETAMINOPHEN 325 MG TABLET 650 MG PO (08:17)
[2025-03-13] MEDS: ASPIRIN 325 MG ENTERIC TABLET PO (08:17)
[2025-03-13] MEDS: OMEGA 3 POLYUNSAT FATTY ACIDS 1 GM CAP PO (08:17)
[2025-03-13] MEDS: MULTIVITAMINS THERAPEUTIC TAB (*BKC) 1 TABLET PO (08:17)
[2025-03-13] MEDS: FAMOTIDINE 10 MG TABLET PO (08:18)
[2025-03-13] MEDS: MIDODRINE HCL 10 MG TABLET PO ×2 (08:18→14:49)
--- NOTE | 2025-03-13 10:20 | P.PNNP_ITS ---
Progress Note: A&P Assessment and Plan (1) ESRD (end stage renal disease): Code(s): N18.6 - End stage renal disease Status: Chronic Assessment and Plan: * HD yesterday * continue M/W/F schedule while hospitalized * follow electrolytes, volume status, and clearance (2) Acute hypoxemic respiratory failure: Code(s): J96.01 - Acute respiratory failure with hypoxia Status: Acute Assessment and Plan: * hypoxia noted in ER * presumably due to volume overload (and missed HD treatments) * push fluid removal/ultrafiltration as tolerated by hemodynamics * DUF session today for further fluid removal... * concern for possible pneumonia on admission but this seems less likely * BiPAP support as needed * wean supplemental oxygen (3) Anemia: Code(s): D64.9 - Anemia, unspecified Status: Chronic Assessment and Plan: * due to ESRD and possibly worsened by acute illness * Epogen with HD * follow trend of H/H (4) Fluid overload: Qualifiers: Hypervolemia type: other Qualified Code(s): E87.79 - Other fluid overload Code(s): E87.70 - Fluid overload, unspecified Status: Acute Assessment and Plan: * presumed etiology of #2 * fluid removal as tolerated by hemodynamics * dry ultrafiltration session today (03/13) * follow respiratory status (5) Altered mental status: Code(s): R41.82 - Altered mental status, unspecified Status: Acute Assessment and Plan: * as noted on presentation * slow improvement noted * suspect secondary to missed dialysis treatments and hypoxa * CT of head negative (6) Diabetes mellitus with multiple complications: Code(s): E11.8 - Type 2 diabetes mellitus with unspecified complications Status: Chronic Assessment and Plan: * follow Accu-Cheks * glycemic control per hospitalist Will continue to follow. L Subjective Date/time seen: 03/13/25 10:20 Interval history: Follow-up for end stage renal disease on hemodialysis. Tolerated dialysis yesterday and tolerating dry ultrafiltration session at the time of my visit (seen on DUF at 10:10am); seems more awake and conversant than yesterday (seems closer to baseline mentation from my experience taking care of him in the past); breathing/respiratory status seems stable if not a bit better; no apparent distress to report when seen. Exam 2 Narrative: General: WD/WN male in NAD Heart: normal S1 and S2; no rub Lungs: coarse breath sounds Abdomen: soft, nontender, nondistended, positive bowel sounds; s/p bilateral BKAs Extremities: no cyanosis or clubbing; trace edema Skin: warm and intact Objective Data Vital Signs Vital Signs: Vital Signs Temp Pulse Resp BP Pulse Ox O2 Del Method O2 Flow Rate 03/13/25 10:15 63 124/60 03/13/25 10:00 57 L 109/73 03/13/25 09:45 64 111/71 03/13/25 09:30 58 L 131/63 03/13/25 09:15 66 134/62 03/13/25 09:00 66 127/61 03/13/25 08:45 95 Nasal Cannula 3 03/13/25 08:44 69 128/60 03/13/25 08:35 3 03/13/25 08:35 99.0 F 70 14 137/63 100 03/13/25 08:17 100 F H 03/13/25 08:00 71 03/13/25 08:00 95 Nasal Cannula 3 03/13/25 07:36 100 F H 62 16 124/43 L 98 03/13/25 06:00 57 L 03/13/25 04:00 97.7 F 62 20 135/49 L 96 03/13/25 04:00 54 L 03/13/25 03:29 63 94 Nasal Cannula 3 03/13/25 02:00 63 03/13/25 00:00 54 L 03/13/25 00:00 97.7 F 56 L 20 112/54 L 97 03/12/25 23:27 54 L 96 BiPAP 03/12/25 22:00 68 03/12/25 20:32 92 Nasal Cannula 3 03/12/25 20:00 70 03/12/25 20:00 63 18 99 Nasal Cannula 3 03/12/25 20:00 97.9 F 71 18 125/42 L 100 03/12/25 18:00 68 03/12/25 16:00 61 03/12/25 16:00 95 Nasal Cannula 2 03/12/25 15:44 98.3 F 71 20 131/82 97 03/12/25 15:07 99 Nasal Cannula 2 Intake/Output Intake/Output: Intake & Output 03/10/25 03/11/25 03/12/2512/25 23:59 23:59 23:59 23:59 Intake Total 1280 880 300 Output Total 1999 3000 Balance -1999 1280 -2120 300 Meds/Results Medications: Active Medications Generic Name Dose Route Start Last Admin Trade Name Freq PRN Reason Stop Dose Admin Acetaminophen 650 mg 03/10/25 08:22 03/13/25 08:17 Acetaminophen 325 Mg Tablet PO 650 mg Q6H PRN Administration Pain (Scale Score 1-3) Aspirin 325 mg 03/11/25 09:00 03/13/25 08:17 Aspirin 325 Mg Enteric Tablet PO 325 mg QAM SAL[facility]ADOR Administration Atorvastatin Calcium 40 mg 03/10/25 21:00 03/12/25 20:07 Atorvastatin 40 Mg Tablet PO 40 mg HS SALVADOR Administration Dextrose 12.5 gm 03/10/25 08:32 03/12/25 07:38 Dextrose 50% 25 Gm/50 Ml Syringe IV PUSH 12.5 gm PRN PRN Administration Hypoglycemia Protocol Famotidine 10 mg 03/11/25 09:00 03/13/25 08:18 Famotidine 10 Mg Tablet PO 10 mg DAILY SAL[facility]ADOR Administration Ferrous Sulfate 325 mg 03/10/25 09:00 03/13/25 08:17 Ferrous Sulfate [address] BY MOUTH 325 mg DAILY SAL[facility]ADOR Administration Fish Oil 1 gm 03/10/25 11:00 03/13/25 08:17 [place] 3 Polyunsat Fatty Acids 1 Gm Cap PO 1 gm DAILY SALVADOR Administration Folic Acid 1 mg 03/10/25 09:00 03/13/25 08:17 Folic Acid 1 Mg Tablet PO 1 mg DAILY [facility]ADOR Administration Gabapentin 200 mg 03/10/25 21:00 03/11/25 21:22 Gabapentin 100 Mg Capsule PO 200 mg HS SALVADOR Administration Glucagon 1 mg 03/10/25 08:32 Glucagon For Inj 1 Mg Vial IM PRN PRN Hypoglycemia Protocol Glucose 15 gm 03/10/25 08:32 Glucose Oral Gel 15 Gm Of Glucse In 37.5 Gm Tube PO PRN PRN Hypoglycemia Protocol Albumin Human 50 mls @ 999 mls/hr 03/10/25 00:42 Albutein IVPB 04/09/25 00:41 Q10M PRN HYPOTENSION Dextrose 1,000 mls @ 100 mls/hr 03/10/25 08:32 Dextrose 5% 1,000 Ml IVPB PRN PRN Hypoglycemia Protocol Sodium Chloride 1,000 mls @ 999 mls/hr 03/13/25 14:00 Normal Saline Iv IV CONT 03/13/25 15:00 .Q1H1M ONE Insulin Aspart 2 - 5 units 03/10/25 12:00 03/13/25 13:08 Insulin Aspart (*Bkc) 100 Units/Ml SUB-Q Not Given TIDWM SALVADOR Protocol Meclizine HCl 25 mg 03/10/25 08:22 Meclizine Hcl 25 Mg Tablet PO Q8H PRN Dizziness Midodrine 10 mg 03/10/25 09:00 03/13/25 08:18 Midodrine Hcl 10 Mg Tablet PO 10 mg 0800,1400 [facility] Administration Mirtazapine 15 mg 03/10/25 21:00 03/12/25 20:07 Mirtazapine 15 Mg Tablet PO 15 mg HS SALVADOR Administration Mirtazapine 7.5 mg 03/10/25 21:00 03/12/25 20:07 Mirtazapine 7.5 Mg Tablet PO 7.5 mg HS SALVADOR Administration Multi-Ingred Cream/Lotion/Oil/Oint 1 applic 03/10/25 18:00 03/12/25 17:25 Eucerin Cream 120 Gm Jar TOPICAL 1 applic QPM [facility]ADOR Administration Multivitamins Therapeutic 1 tablet 03/10/25 09:00 03/13/25 08:17 Multivitamins Therapeutic Tab (*Bkc) PO 1 tablet DAILY [facility]ADOR Administration Sertraline HCl 25 mg 03/10/25 21:00 03/12/25 20:07 Sertraline Hcl 25 Mg Tablet PO 25 mg HS SALVADOR Administration Sevelamer Carbonate 800 mg 03/10/25 17:00 03/12/25 17:27 Sevelamer Carbonate 800 Mg Tablet PO Not Given DAILY@1700 [facility] Tamsulosin HCl 0.4 mg 03/10/25 17:00 03/12/25 17:27 Tamsulosin Hcl 0.4 Mg Capsule PO Not Given DAILY@1700 [facility] Tizanidine HCl 2 mg 03/10/25 17:00 03/12/25 08:03 Tizanidine Hcl 2 Mg Tablet PO Not Given BID SALVADOR Tizanidine HCl 2 mg 03/11/25 13:00 03/11/25 16:18 Tizanidine Hcl 2 Mg Tablet PO 2 mg SuTuThSa@1300 [facility] Administration Tramadol HCl 50 mg 03/10/25 08:22 Tramadol Hcl (*Crx) 50 Mg Tablet PO Q4H PRN Pain (Scale Score 4-6) Radiology Results: ITS Impressions Chest CTA 03/09/25 20:53 IMPRESSION: No pulmonary embolus. No thoracic aortic dissection. Significant enlargement of the main pulmonary artery, consistent with pulmonary hypertension. Redemonstration of cardiomegaly. Extensive mediastinal and supraclavicular lymphadenopathy, unchanged from prior. Bibasilar consolidation with small bilateral pleural effusions. Head CT 03/11/25 10:42 Impression: No significant abnormality seen. Chest X-Ray 03/13/25 06:56 IMPRESSION: 1. Unchanged mild opacities in the lower lung zones which could represent atelectasis or pneumonia. 2. Cardiomegaly. Labs Labs: Laboratory Tests 03/13/25 04:29 03/13/25 04:29 Calcium 8.1 L Phosphorus 2.3 L Magnesium 2.1 Albumin 2.8 L Microbiology 03/09/25 14:32 Blood Blood Culture - Preliminary 03/09/25 14:46 Blood Blood Culture - Preliminary 03/09/25 14:13 Sputum Sputum White Blood Cells - Final 03/09/25 14:13 Sputum Sputum Epithelial Cells - Final 03/09/25 14:13 Sputum Gram Stain Sputum Result 1 - Final 03/09/25 14:13 Sputum Gram Stain Sputum Result 2 - Final 03/09/25 14:13 Sputum Gram Stain Sputum Result 3 - Final 03/09/25 14:13 Sputum Gram Stain Sputum Result 4 - Final 03/09/25 14:13 Sputum Gram Stain Evaluation - Final 03/09/25 14:13 Sputum Sputum Culture - Preliminary
[2025-03-13] MEDS: EPOETIN ALFA-EPBX 10,000 UNITS/ML VIAL 10000 UNITS IV PUSH (10:25)
[2025-03-13] MEDS: SODIUM CHLORIDE 0.9% IV 1,000 ML 999 ML IV CONT (10:25)
--- NOTE | 2025-03-13 14:45 | P.PNIM_ITS ---
Progress Note: A&P Assessment and Plan (1) Type 2 diabetes mellitus: Code(s): E11.9 - Type 2 diabetes mellitus without complications Status: Acute (2) Fluid overload: Qualifiers: Hypervolemia type: other Qualified Code(s): E87.79 - Other fluid overload Code(s): E87.70 - Fluid overload, unspecified Status: Acute (3) Respiratory failure: Code(s): J96.90 - Respiratory failure, unspecified, unspecified whether with hypoxia or hypercapnia Status: Acute (4) Weakness: Code(s): R53.1 - Weakness Status: Acute (5) Altered mental status: Code(s): R41.82 - Altered mental status, unspecified Status: Acute Plan 59-year-old male with a history of ESRD on hemodialysis Saturday at [facility] followed by Dr. Almodovar, chronic anemia, paroxysmal atrial fibrillation, combined systolic and diastolic heart failure, CAD status post 4 vessel bypass, hypertension, hyperlipidemia, [id number] diabetes mellitus, bilateral BKA and other comorbidities who presents to [facility] ER on 03/10/2025 from [facility] due to shortness of breath, weakness, confusion. Reportedly the patient was saturating 80% on room air, he has been refusing to go to at dialysis for 6 days prior to admission. Hypoxic in the ER in tachypneic, placed on BiPAP with improvement in his respiratory status. ABG demonstrated respiratory alkalosis w ith persistent hypoxia on 4 L nasal cannula. He was also hyperkalemic and received bicarb insulin and dextrose and received fluids. ----- Underwent dialysis on 03/10/2025. ----- 03/11/2025: Currently on 2 L nasal cannula. No respiratory distress. Still has bibasilar crackles, chest x-ray demonstrating pulmonary vascular congestion. You may see greater improvement with another session of dialysis, nephrology following. He is A&O x2 and reportedly his baseline is A&O x3. Check CT head without contrast. Possibly polypharmacy in combination with missing dialysis and increased concentrations. Patient had glucose 57 this morning and reportedly that has improved to 74. Received 71640 units Retacrit on 03/10/2025. Has chronic anemia, avoid pharmacological DVT prophylaxis. On aspirin 325 daily per Cardiology. Pending echocardiogram. ----- 03/12/2025: Undergoing dialysis again today currently on 2 L. possibly encephalopathy related to hypoxia or residual effects of anoxia. CT head without acute abnormalities. At this time we will hold tizanidine, the p.r.n. tramadol, gabapentin as his serum concentrations may have accumulated during missing dialysis. Continue dialysis with Nephrology continue to monitor. Cultures so far negative. Afebrile. ----- Encephalopathy is improving. Asked respiratory therapy to wean oxygen. Continue to hold tizanidine tramadol and gabapentin. If to introduced back into his regimen do it slowly. Monitor cultures. DNR. Saline lock IV. Subjective Date/time seen: 03/13/25 14:45 Interval history: Verbally cantankerous overnight. Calm in the morning. Alert and oriented. Review of Systems Review of Systems: All systems reviewed & are unremarkable except as noted in HPI and below (Subjective) Exam Const: General: comfortable and no acute distress HENMT: Mouth: Yes moist mucous membranes Eyes: Pupils: Equal, round and reactive pupils present Neck: Neck: supple Resp: Effort & Inspection: normal respiratory effort Other: Scant bibasilar crackles Cardio: Rate: regular rate Rhythm: regular rhythm Heart sounds: no gallops, no murmurs and no rubs Extrem: General: no edema Other: Bilateral BKA Objective Data Vital Signs Vital Signs: Vital Signs - 24 hr 03/12/25 15:07 03/12/25 15:44 03/12/25 16:00 Temperature 98.3 F Pulse Rate 71 Respiratory Rate 20 Blood Pressure 131/82 Pulse Oximetry 99 97 95 Oxygen Delivery Nasal Cannula Nasal Cannula Oxygen Flow Rate 2 2 Fraction of Inspired Oxygen 03/12/25 16:00 03/12/25 18:00 03/12/25 20:00 Temperature 97.9 F Pulse Rate 61 68 71 Respiratory Rate 18 Blood Pressure 125/42 L Pulse Oximetry 100 Oxygen Delivery Oxygen Flow Rate Fraction of Inspired Oxygen 03/12/25 20:00 03/12/25 20:00 03/12/25 20:32 Temperature Pulse Rate 63 70 Respiratory Rate 18 Blood Pressure Pulse Oximetry 99 92 Oxygen Delivery Nasal Cannula Nasal Cannula Oxygen Flow Rate 3 3 Fraction of Inspired Oxygen 03/12/25 22:00 03/12/25 23:27 03/13/25 00:00 Temperature 97.7 F Pulse Rate 68 54 L 56 L Respiratory Rate 20 Blood Pressure 112/54 L Pulse Oximetry 96 97 Oxygen Delivery BiPAP Oxygen Flow Rate Fraction of Inspired Oxygen 40 03/13/25 00:00 03/13/25 02:00 03/13/25 03:29 Temperature Pulse Rate 54 L 63 63 Respiratory Rate Blood Pressure Pulse Oximetry 94 Oxygen Delivery Nasal Cannula Oxygen Flow Rate 3 Fraction of Inspired Oxygen 03/13/25 04:00 03/13/25 04:00 03/13/25 06:00 Temperature 97.7 F Pulse Rate 54 L 62 57 L Respiratory Rate 20 Blood Pressure 135/49 L Pulse Oximetry 96 Oxygen Delivery Oxygen Flow Rate Fraction of Inspired Oxygen 03/13/25 07:36 03/13/25 08:00 03/13/25 08:00 Temperature 100 F H Pulse Rate 62 71 Respiratory Rate 16 Blood Pressure 124/43 L Pulse Oximetry 98 95 Oxygen Delivery Nasal Cannula Oxygen Flow Rate 3 Fraction of Inspired Oxygen 03/13/25 08:17 03/13/25 08:35 03/13/25 08:35 Temperature 100 F H 99.0 F Pulse Rate 70 Respiratory Rate 14 Blood Pressure 137/63 Pulse Oximetry 100 Oxygen Delivery Oxygen Flow Rate 3 Fraction of Inspired Oxygen 03/13/25 08:44 03/13/25 08:45 03/13/25 09:00 Temperature Pulse Rate 69 66 Respiratory Rate Blood Pressure 128/60 127/61 Pulse Oximetry 95 Oxygen Delivery Nasal Cannula Oxygen Flow Rate 3 Fraction of Inspired Oxygen 03/13/25 09:15 03/13/25 09:30 03/13/25 09:45 Temperature Pulse Rate 66 58 L 64 Respiratory Rate Blood Pressure 134/62 131/63 111/71 Pulse Oximetry Oxygen Delivery Oxygen Flow Rate Fraction of Inspired Oxygen 03/13/25 10:00 03/13/25 10:00 03/13/25 10:15 Temperature Pulse Rate 57 L 59 L 63 Respiratory Rate Blood Pressure 109/73 124/60 Pulse Oximetry Oxygen Delivery Oxygen Flow Rate Fraction of Inspired Oxygen 03/13/25 10:15 03/13/25 10:45 03/13/25 11:00 Temperature Pulse Rate 62 62 66 Respiratory Rate Blood Pressure 125/59 L 126/59 L 135/71 Pulse Oximetry Oxygen Delivery Oxygen Flow Rate Fraction of Inspired Oxygen 03/13/25 11:15 03/13/25 11:30 03/13/25 11:45 Temperature Pulse Rate 62 63 61 Respiratory Rate Blood Pressure 117/57 L 113/58 L 109/62 Pulse Oximetry Oxygen Delivery Oxygen Flow Rate Fraction of Inspired Oxygen 03/13/25 11:55 03/13/25 12:00 03/13/25 12:00 Temperature 98.8 F Pulse Rate 57 L 88 Respiratory Rate 16 Blood Pressure 121/55 L Pulse Oximetry 100 100 Oxygen Delivery Nasal Cannula Oxygen Flow Rate 5 Fraction of Inspired Oxygen Intake/Output Intake/Output: Intake & Output 03/10/25 03/11/25 03/12/25 03/13/25 23:59 23:59 23:59 23:59 Intake Total 1280 880 300 Output Total 1999 3000 2500 Balance -1999 1280 -2120 -2200 Meds/Results Medications: Active Medications Generic Name Dose Route Start Last Admin Trade Name Freq PRN Reason Stop Dose Admin Acetaminophen 650 mg 03/10/25 08:22 03/13/25 08:17 Acetaminophen 325 Mg Tablet PO 650 mg Q6H PRN Administration Pain (Scale Score 1-3) Aspirin 325 mg 03/11/25 09:00 03/13/25 08:17 Aspirin 325 Mg Enteric Tablet PO 325 mg QAM [facility] Administration Atorvastatin Calcium 40 mg 03/10/25 21:00 03/12/25 20:07 Atorvastatin 40 Mg Tablet PO 40 mg HS [facility] Administration Dextrose 12.5 gm 03/10/25 08:32 03/12/25 07:38 Dextrose 50% 25 Gm/50 Ml Syringe IV PUSH 12.5 gm PRN PRN Administration Hypoglycemia Protocol Famotidine 10 mg 03/11/25 09:00 03/13/25 08:18 Famotidine 10 Mg Tablet PO 10 mg DAILY [facility] Administration Ferrous Sulfate 325 mg 03/10/25 09:00 03/13/25 08:17 Ferrous Sulfate [address] BY MOUTH 325 mg DAILY [facility] Administration Fish Oil 1 gm 03/10/25 11:00 03/13/25 08:17 [place]ag[place] 3 Polyunsat Fatty Acids 1 Gm Cap PO 1 gm DAILY [facility] Administration Folic Acid 1 mg 03/10/25 09:00 03/13/25 08:17 Folic Acid 1 Mg Tablet PO 1 mg DAILY [facility] Administration Gabapentin 200 mg 03/10/25 21:00 03/11/25 21:22 Gabapentin 100 Mg Capsule PO 200 mg HS [facility] Administration Glucagon 1 mg 03/10/25 08:32 Glucagon For Inj 1 Mg Vial IM PRN PRN Hypoglycemia Protocol Glucose 15 gm 03/10/25 08:32 Glucose Oral Gel 15 Gm Of Glucse In 37.5 Gm Tube PO PRN PRN Hypoglycemia Protocol Albumin Human 50 mls @ 999 mls/hr 03/10/25 00:42 Albutein IVPB 04/09/25 00:41 Q10M PRN HYPOTENSION Dextrose 1,000 mls @ 100 mls/hr 03/10/25 08:32 Dextrose 5% 1,000 Ml IVPB PRN PRN Hypoglycemia Protocol Sodium Chloride 1,000 mls @ 999 mls/hr 03/13/25 14:00 Normal Saline Iv IV CONT 03/13/25 15:00 .Q1H1M ONE Insulin Aspart 2 - 5 units 03/10/25 12:00 03/13/25 13:08 Insulin Aspart (*Bkc) 100 Units/Ml SUB-Q Not Given TIDWM [facility] Protocol Meclizine HCl 25 mg 03/10/25 08:22 Meclizine Hcl 25 Mg Tablet PO Q8H PRN Dizziness Midodrine 10 mg 03/10/25 09:00 03/13/25 08:18 Midodrine Hcl 10 Mg Tablet PO 10 mg 0800,1400 [facility] Administration Mirtazapine 15 mg 03/10/25 21:00 03/12/25 20:07 Mirtazapine 15 Mg Tablet PO 15 mg HS [facility] Administration Mirtazapine 7.5 mg 03/10/25 21:00 03/12/25 20:07 Mirtazapine 7.5 Mg Tablet PO 7.5 mg HS [facility] Administration Multi-Ingred Cream/Lotion/Oil/Oint 1 applic 03/10/25 18:00 03/12/25 17:25 Eucerin Cream 120 Gm Jar TOPICAL 1 applic QPM [facility] Administration Multivitamins Therapeutic 1 tablet 03/10/25 09:00 03/13/25 08:17 Multivitamins Therapeutic Tab (*Bkc) PO 1 tablet DAILY [facility] Administration Sertraline HCl 25 mg 03/10/25 21:00 03/12/25 20:07 Sertraline Hcl 25 Mg Tablet PO 25 mg HS [facility] Administration Sevelamer Carbonate 800 mg 03/10/25 17:00 03/12/25 17:27 Sevelamer Carbonate 800 Mg Tablet PO Not Given DAILY@1700 [facility] Tamsulosin HCl 0.4 mg 03/10/25 17:00 03/12/25 17:27 Tamsulosin Hcl 0.4 Mg Capsule PO Not Given DAILY@1700 [facility] Tizanidine HCl 2 mg 03/10/25 17:00 03/12/25 08:03 Tizanidine Hcl 2 Mg Tablet PO Not Given BID [facility] Tizanidine HCl 2 mg 03/11/25 13:00 03/11/25 16:18 Tizanidine Hcl 2 Mg Tablet PO 2 mg SuTuThSa@1300 [facility] Administration Tramadol HCl 50 mg 03/10/25 08:22 Tramadol Hcl (*Crx) 50 Mg Tablet PO Q4H PRN Pain (Scale Score 4-6) Radiology Results: ITS Impressions Chest CTA 03/09/25 20:53 IMPRESSION: No pulmonary embolus. No thoracic aortic dissection. Significant enlargement of the main pulmonary artery, consistent with pulmonary hypertension. Redemonstration of cardiomegaly. Extensive mediastinal and supraclavicular lymphadenopathy, unchanged from prior. Bibasilar consolidation with small bilateral pleural effusions. Head CT 03/11/25 10:42 Impression: No significant abnormality seen. Chest X-Ray 03/13/25 06:56 IMPRESSION: 1. Unchanged mild opacities in the lower lung zones which could represent atelectasis or pneumonia. 2. Cardiomegaly. Labs Labs: Laboratory Results - last 24 hr 03/12/25 03/12/25 03/13/25 15:16 21:16 04:29 WBC 4.8 RBC 2.66 L Hgb 8.3 L Hct 27.8 L MCV 104.5 H MCH 31.2 MCHC 29.9 L RDW 16.3 H Plt Count 62 L MPV 11.7 H % Immature Plt Fraction 6.6 Sodium 140 Potassium 3.4 Chloride 99 Carbon Dioxide 34 H Anion Gap 7 BUN 31 H D Creatinine 4.04 H Estim Creat Clear Calc 19 Estimated GFR 15 L Glucose 98 POC Capillary Glucose 125 H 180 H Calcium 8.1 L Phosphorus 2.3 L Magnesium 2.1 Albumin 2.8 L 03/13/25 03/13/25 07:40 12:14 WBC RBC Hgb Hct MCV MCH MCHC RDW Plt Count MPV % Immature Plt Fraction Sodium Potassium Chloride Carbon Dioxide Anion Gap BUN Creatinine Estim Creat Clear Calc Estimated GFR Glucose POC Capillary Glucose 109 H 101 Calcium Phosphorus Magnesium Albumin
[2025-03-13] MEDS: TAMSULOSIN HCL 0.4 MG CAPSULE PO (16:43)
[2025-03-13] MEDS: SEVELAMER CARBONATE 800 MG TABLET PO (16:43)
[2025-03-13] MEDS: EUCERIN CREAM 120 GM JAR 1 APPLIC TOPICAL (17:32)
--- NOTE | 2025-03-13 18:13 | PC.NURSE ---
This patient, Kobi Salter, was transferred to [facility] on 03/13/25 at 1750. Personal belongings sent with patient. Report given to NOEMI Caldera. Appropriate documentation sent with patient. Patient's personal belongings and call light in reach. Bed in low and locked position. Family at bedside. Katrin De La Fuente RN
[2025-03-13] MEDS: MIRTAZAPINE 15 MG TABLET PO (22:07)
[2025-03-13] MEDS: SERTRALINE HCL 25 MG TABLET PO (22:07)
[2025-03-13] MEDS: ATORVASTATIN 40 MG TABLET PO (22:08)
[2025-03-13] MEDS: MIRTAZAPINE 7.5 MG TABLET PO (22:09)
[2025-03-14] VITALS (7 sets, daily range): BP systolic 104–179; BP diastolic 52–73; PULSE 54–58; RESP 18–22; TEMP 36.4–37.3; O2SAT 95–100
[2025-03-14 06:26] LABS: Hematocrit 27.1 % (42.0-52.0); Hemoglobin 8.1 g/dL (14.0-18.0); Immature Platelet Fraction Pct 5.3 % (0.9-11.2); Mean Corpuscular HGB Conc 29.9 g/dl (32-36); Mean Corpuscular Hemoglobin 31.3 pg (26-34); Mean Corpuscular Volume 104.6 fl (80-100); Platelet Count Result 69 k/mm3 (150-375); Red Blood Count 2.59 M/mm3 (4.6-6.20); White Blood Count 5.5 K/mm3 (4.5-10.0)
[2025-03-14 06:47] LABS: Albumin Level 2.7 g/dL (3.5-5.1); Anion Gap 10 mmol/L (4-12); Blood Urea Nitrogen 45 mg/dL (9-20); Calcium 8.2 mg/dL (8.4-10.2); Carbon Dioxide 30 mmol/L (22-30); Chloride 100 mmol/L (98-107); Estimated CRCL calculation 14 ml/min; Estimated Glomerular Filt Rate 11; Glucose 145 mg/dL (65-110); Magnesium 2.3 mg/dL (1.6-2.3); Potassium 3.4 mmol/L (3.4-5.0); Sodium 140 mmol/L (137-145)
[2025-03-14] MEDS: OMEGA 3 POLYUNSAT FATTY ACIDS 1 GM CAP PO (09:54)
[2025-03-14] MEDS: ASPIRIN 325 MG ENTERIC TABLET PO (09:54)
[2025-03-14] MEDS: FOLIC ACID 1 MG TABLET PO (09:54)
[2025-03-14] MEDS: MULTIVITAMINS THERAPEUTIC TAB (*BKC) 1 TABLET PO (09:54)
[2025-03-14] MEDS: FAMOTIDINE 10 MG TABLET PO (09:54)
[2025-03-14] MEDS: FERROUS SULFATE 325 MG TABLET DR BY MOUTH (09:54)
[2025-03-14] MEDS: MIDODRINE HCL 10 MG TABLET PO ×2 (09:56→15:06)
--- NOTE | 2025-03-14 11:41 | P.PNIM_ITS ---
Progress Note: A&P Assessment and Plan (1) Type 2 diabetes mellitus: Code(s): E11.9 - Type 2 diabetes mellitus without complications Status: Acute (2) Fluid overload: Qualifiers: Hypervolemia type: other Qualified Code(s): E87.79 - Other fluid overload Code(s): E87.70 - Fluid overload, unspecified Status: Acute (3) Respiratory failure: Code(s): J96.90 - Respiratory failure, unspecified, unspecified whether with hypoxia or hypercapnia Status: Acute (4) Weakness: Code(s): R53.1 - Weakness Status: Acute (5) Altered mental status: Code(s): R41.82 - Altered mental status, unspecified Status: Acute Plan 59-year-old male with a history of ESRD on hemodialysis Saturday at [facility] followed by Dr. Almodovar, chronic anemia, paroxysmal atrial fibrillation, combined systolic and diastolic heart failure, CAD status post 4 vessel bypass, hypertension, hyperlipidemia, [id number] diabetes mellitus, bilateral BKA and other comorbidities who presents to [facility] ER on 03/10/2025 from [facility] due to shortness of breath, weakness, confusion. Reportedly the patient was saturating 80% on room air, he has been refusing to go to at dialysis for 6 days prior to admission. Hypoxic in the ER in tachypneic, placed on BiPAP with improvement in his respiratory status. ABG demonstrated respiratory alkalosis w ith persistent hypoxia on 4 L nasal cannula. He was also hyperkalemic and received bicarb insulin and dextrose and received fluids. ----- Underwent dialysis on 03/10/2025. ----- 03/11/2025: Currently on 2 L nasal cannula. No respiratory distress. Still has bibasilar crackles, chest x-ray demonstrating pulmonary vascular congestion. You may see greater improvement with another session of dialysis, nephrology following. He is A&O x2 and reportedly his baseline is A&O x3. Check CT head without contrast. Possibly polypharmacy in combination with missing dialysis and increased concentrations. Patient had glucose 57 this morning and reportedly that has improved to 74. Received 03489 units Retacrit on 03/10/2025. Has chronic anemia, avoid pharmacological DVT prophylaxis. On aspirin 325 daily per Cardiology. Pending echocardiogram. ----- 03/12/2025: Undergoing dialysis again today currently on 2 L. possibly encephalopathy related to hypoxia or residual effects of anoxia. CT head without acute abnormalities. At this time we will hold tizanidine, the p.r.n. tramadol, gabapentin as his serum concentrations may have accumulated during missing dialysis. Continue dialysis with Nephrology continue to monitor. Cultures so far negative. Afebrile. ----- Encephalopathy is improving. Asked respiratory therapy to wean oxygen. Continue to hold tizanidine tramadol and gabapentin. If to introduced back into his regimen do it slowly. Monitor cultures. ----- 03/14/2025: His mental status waxes and wanes but of late he has been alert and oriented. Continue to hold tizanidine tramadol gabapentin. Continue to wean O2. Blood culture from 03/09/2025 no growth to date. Anticipate discharge on 03/15/2025 if no further issues. May need home O2. DNR. Saline lock IV. Subjective Date/time seen: 03/14/25 11:41 Interval history: No overnight events. Patient has no complaints. He is alert and oriented. Review of Systems Review of Systems: All systems reviewed & are unremarkable except as noted in HPI and below (Subjective) Exam Const: General: comfortable and no acute distress Other: A&O x3 HENMT: Mouth: Yes moist mucous membranes Eyes: Pupils: Equal, round and reactive pupils present Neck: Neck: supple Resp: Effort & Inspection: normal respiratory effort Other: Scant bibasilar crackles Cardio: Rate: regular rate Rhythm: regular rhythm Heart sounds: no gallops, no murmurs and no rubs Extrem: General: no edema Other: Bilateral BKA Objective Data Vital Signs Vital Signs: Vital Signs - 24 hr 03/13/25 11:45 03/13/25 11:55 03/13/25 12:00 Temperature 98.8 F Pulse Rate 61 57 L 88 Respiratory Rate 16 Blood Pressure 109/62 121/55 L Pulse Oximetry 100 Oxygen Delivery Oxygen Flow Rate 03/13/25 12:00 03/13/25 16:00 03/13/25 16:00 Temperature 98.4 F Pulse Rate 55 L 65 Respiratory Rate 18 Blood Pressure 112/59 L Pulse Oximetry 100 99 Oxygen Delivery Nasal Cannula Oxygen Flow Rate 5 03/13/25 19:58 03/13/25 20:20 03/13/25 22:00 Temperature 99.1 F Pulse Rate 66 Respiratory Rate 18 Blood Pressure 120/50 L Pulse Oximetry 100 99 100 Oxygen Delivery Nasal Cannula Nasal Cannula Oxygen Flow Rate 3 2 03/13/25 22:00 03/14/25 06:45 03/14/25 11:35 Temperature 99.1 F Pulse Rate 58 L Respiratory Rate 18 Blood Pressure 104/52 L Pulse Oximetry 98 100 100 Oxygen Delivery Nasal Cannula Nasal Cannula Oxygen Flow Rate 3 2 Intake/Output Intake/Output: Intake & Output 03/11/25 03/12/25 03/13/25 03/14/25 23:59 23:59 23:59 23:59 Intake Total 1280 880 540 480 Output Total 3000 2500 0 Balance 128 -2119 -1959 480 Meds/Results Medications: Active Medications Generic Name Dose Route Start Last Admin Trade Name Freq PRN Reason Stop Dose Admin Acetaminophen 650 mg 03/10/25 08:22 03/13/25 08:17 Acetaminophen 325 Mg Tablet PO 650 mg Q6H PRN Administration Pain (Scale Score 1-3) Aspirin 325 mg 03/11/25 09:00 03/14/25 09:54 Aspirin 325 Mg Enteric Tablet PO 325 mg QAM [facility] Administration Atorvastatin Calcium 40 mg 03/10/25 21:00 03/13/25 22:08 Atorvastatin 40 Mg Tablet PO 40 mg HS [facility] Administration Dextrose 12.5 gm 03/10/25 08:32 03/12/25 07:38 Dextrose 50% 25 Gm/50 Ml Syringe IV PUSH 12.5 gm PRN PRN Administration Hypoglycemia Protocol Famotidine 10 mg 03/11/25 09:00 03/14/25 09:54 Famotidine 10 Mg Tablet PO 10 mg DAILY [facility] Administration Ferrous Sulfate 325 mg 03/10/25 09:00 03/14/25 09:54 Ferrous Sulfate [address] BY MOUTH 325 mg DAILY [facility] Administration Fish Oil 1 gm 03/10/25 11:00 03/14/25 09:54 [place] 3 Polyunsat Fatty Acids 1 Gm Cap PO 1 gm DAILY [facility] Administration Folic Acid 1 mg 03/10/25 09:00 03/14/25 09:54 Folic Acid 1 Mg Tablet PO 1 mg DAILY [facility] Administration Gabapentin 200 mg 03/10/25 21:00 03/11/25 21:22 Gabapentin 100 Mg Capsule PO 200 mg HS [facility] Administration Glucagon 1 mg 03/10/25 08:32 Glucagon For Inj 1 Mg Vial IM PRN PRN Hypoglycemia Protocol Glucose 15 gm 03/10/25 08:32 Glucose Oral Gel 15 Gm Of Glucse In 37.5 Gm Tube PO PRN PRN Hypoglycemia Protocol Albumin Human 50 mls @ 999 mls/hr 03/10/25 00:42 Albutein IVPB 04/09/25 00:41 Q10M PRN HYPOTENSION Dextrose 1,000 mls @ 100 mls/hr 03/10/25 08:32 Dextrose 5% 1,000 Ml IVPB PRN PRN Hypoglycemia Protocol Insulin Aspart 2 - 5 units 03/10/25 12:00 03/14/25 09:47 Insulin Aspart (*Bkc) 100 Units/Ml SUB-Q Not Given TIDWM [facility] Protocol Meclizine HCl 25 mg 03/10/25 08:22 Meclizine Hcl 25 Mg Tablet PO Q8H PRN Dizziness Midodrine 10 mg 03/10/25 09:00 03/14/25 09:56 Midodrine Hcl 10 Mg Tablet PO 10 mg 0800,1400 [facility] Administration Mirtazapine 15 mg 03/10/25 21:00 03/13/25 22:07 Mirtazapine 15 Mg Tablet PO 15 mg HS [facility] Administration Mirtazapine 7.5 mg 03/10/25 21:00 03/13/25 22:09 Mirtazapine 7.5 Mg Tablet PO 7.5 mg HS [facility] Administration Multi-Ingred Cream/Lotion/Oil/Oint 1 applic 03/10/25 18:00 03/13/25 17:32 Eucerin Cream 120 Gm Jar TOPICAL 1 applic QPM [facility] Administration Multivitamins Therapeutic 1 tablet 03/10/25 09:00 03/14/25 09:54 Multivitamins Therapeutic Tab (*Bkc) PO 1 tablet DAILY [facility] Administration Sertraline HCl 25 mg 03/10/25 21:00 03/13/25 22:07 Sertraline Hcl 25 Mg Tablet PO 25 mg HS [facility] Administration Sevelamer Carbonate 800 mg 03/10/25 17:00 03/13/25 16:43 Sevelamer Carbonate 800 Mg Tablet PO 800 mg DAILY@1700 [facility] Administration Tamsulosin HCl 0.4 mg 03/10/25 17:00 03/13/25 16:43 Tamsulosin Hcl 0.4 Mg Capsule PO 0.4 mg DAILY@1700 [facility] Administration Tizanidine HCl 2 mg 03/10/25 17:00 03/12/25 08:03 Tizanidine Hcl 2 Mg Tablet PO Not Given BID [facility] Tizanidine HCl 2 mg 03/11/25 13:00 03/11/25 16:18 Tizanidine Hcl 2 Mg Tablet PO 2 mg SuTuThSa@1300 [facility] Administration Tramadol HCl 50 mg 03/10/25 08:22 Tramadol Hcl (*Crx) 50 Mg Tablet PO Q4H PRN Pain (Scale Score 4-6) Radiology Results: ITS Impressions Chest CTA 03/09/25 20:53 IMPRESSION: No pulmonary embolus. No thoracic aortic dissection. Significant enlargement of the main pulmonary artery, consistent with pulmonary hypertension. Redemonstration of cardiomegaly. Extensive mediastinal and supraclavicular lymphadenopathy, unchanged from prior. Bibasilar consolidation with small bilateral pleural effusions. Head CT 03/11/25 10:42 Impression: No significant abnormality seen. Chest X-Ray 03/13/25 06:56 IMPRESSION: 1. Unchanged mild opacities in the lower lung zones which could represent atelectasis or pneumonia. 2. Cardiomegaly. Labs Labs: Laboratory Results - last 24 hr 03/13/25 03/13/25 03/13/25 12:14 16:18 22:00 WBC RBC Hgb Hct MCV MCH MCHC RDW Plt Count MPV % Immature Plt Fraction Sodium Potassium Chloride Carbon Dioxide Anion Gap BUN Creatinine Estim Creat Clear Calc Estimated GFR Glucose POC Capillary Glucose 101 145 H 159 H Calcium Phosphorus Magnesium Albumin 03/14/25 03/14/25 06:19 08:30 WBC 5.5 RBC 2.59 L Hgb 8.1 L Hct 27.1 L MCV 104.6 H MCH 31.3 MCHC 29.9 L RDW 16.4 H Plt Count 69 L MPV 11.8 H % Immature Plt Fraction 5.3 Sodium 140 Potassium 3.4 Chloride 100 Carbon Dioxide 30 Anion Gap 10 BUN 45 H D Creatinine 5.55 H Estim Creat Clear Calc 14 Estimated GFR 11 L Glucose 145 H POC Capillary Glucose 126 H Calcium 8.2 L Phosphorus 2.5 Magnesium 2.3 Albumin 2.7 L
--- NOTE | 2025-03-14 12:48 | P.PNNP_ITS ---
Progress Note: A&P Assessment and Plan (1) ESRD (end stage renal disease): Code(s): N18.6 - End stage renal disease Status: Chronic Assessment and Plan: * HD tomorrow * continue M/W/F schedule while hospitalized * follow electrolytes, volume status, and clearance (2) Acute hypoxemic respiratory failure: Code(s): J96.01 - Acute respiratory failure with hypoxia Status: Acute Assessment and Plan: * hypoxia noted in ER * presumably due to volume overload (and missed HD treatments) * push fluid removal/ultrafiltration as tolerated by hemodynamics * DUF session (on 03/13) for further fluid removal... * concern for possible pneumonia on admission but this seems less likely * BiPAP support PRN * wean supplemental oxygen (3) Anemia: Code(s): D64.9 - Anemia, unspecified Status: Chronic Assessment and Plan: * due to ESRD and possibly worsened by acute illness * Epogen with HD * follow trend of H/H (4) Fluid overload: Qualifiers: Hypervolemia type: other Qualified Code(s): E87.79 - Other fluid overload Code(s): E87.70 - Fluid overload, unspecified Status: Acute Assessment and Plan: * presumed etiology of #2 * fluid removal as tolerated by hemodynamics * dry ultrafiltration session (on 03/13)... * follow respiratory status (5) Altered mental status: Code(s): R41.82 - Altered mental status, unspecified Status: Acute Assessment and Plan: * as noted on presentation * slow improvement noted * suspect secondary to missed dialysis treatments and hypoxa * CT of head negative (6) Diabetes mellitus with multiple complications: Code(s): E11.8 - Type 2 diabetes mellitus with unspecified complications Status: Chronic Assessment and Plan: * follow Accu-Cheks * glycemic control per hospitalist Will continue to follow. L Subjective Date/time seen: 03/14/25 12:48 Interval history: Follow-up for end stage renal disease on hemodialysis. Tolerated dry ultrafiltration session yesterday morning without any issue or problems; no new issues or problems voiced at the time of my visit; no events overnight; respiratory status/breathing seems stable but still requiring supplemental oxygen when seen. Exam 2 Narrative: General: WD/WN male in NAD Heart: normal S1 and S2; no rub Lungs: coarse breath sounds Abdomen: soft, nontender, nondistended, positive bowel sounds; s/p bilateral BKAs Extremities: no cyanosis or clubbing; trace edema Skin: no rash Objective Data Vital Signs Vital Signs: Vital Signs Temp Pulse Resp BP Pulse Ox O2 Del Method O2 Flow Rate 03/14/25 11:35 100 Nasal Cannula 2 03/14/25 09:56 95 Nasal Cannula 3 03/14/25 06:45 99.1 F 58 L 18 104/52 L 100 03/13/25 22:00 98 Nasal Cannula 3 03/13/25 22:00 99.1 F 66 18 120/50 L 100 03/13/25 20:20 99 Nasal Cannula 2 03/13/25 19:58 100 Nasal Cannula 3 03/13/25 16:00 65 03/13/25 16:00 98.4 F 55 L 18 112/59 L 99 Intake/Output Intake/Output: Intake & Output 03/11/25 03/12/25 03/13/25 03/14/25 23:59 23:59 23:59 23:59 Intake Total 1280 880 540 480 Output Total 3000 2500 0 Balance 1280 -2120 -1960 480 Meds/Results Medications: Active Medications Generic Name Dose Route Start Last Admin Trade Name Freq PRN Reason Stop Dose Admin Acetaminophen 650 mg 03/10/25 08:22 03/13/25 08:17 Acetaminophen 325 Mg Tablet PO 650 mg Q6H PRN Administration Pain (Scale Score 1-3) Aspirin 325 mg 03/11/25 09:00 03/14/25 09:54 Aspirin 325 Mg Enteric Tablet PO 325 mg QAM [facility] Administration Atorvastatin Calcium 40 mg 03/10/25 21:00 03/13/25 22:08 Atorvastatin 40 Mg Tablet PO 40 mg HS [facility] Administration Dextrose 12.5 gm 03/10/25 08:32 03/12/25 07:38 Dextrose 50% 25 Gm/50 Ml Syringe IV PUSH 12.5 gm PRN PRN Administration Hypoglycemia Protocol Famotidine 10 mg 03/11/25 09:00 03/14/25 09:54 Famotidine 10 Mg Tablet PO 10 mg DAILY [facility] Administration Ferrous Sulfate 325 mg 03/10/25 09:00 03/14/25 09:54 Ferrous Sulfate [address] BY MOUTH 325 mg DAILY [facility] Administration Fish Oil 1 gm 03/10/25 11:00 03/14/25 09:54 [place] 3 Polyunsat Fatty Acids 1 Gm Cap PO 1 gm DAILY [facility] Administration Folic Acid 1 mg 03/10/25 09:00 03/14/25 09:54 Folic Acid 1 Mg Tablet PO 1 mg DAILY [facility] Administration Gabapentin 200 mg 03/10/25 21:00 03/11/25 21:22 Gabapentin 100 Mg Capsule PO 200 mg HS [facility] Administration Glucagon 1 mg 03/10/25 08:32 Glucagon For Inj 1 Mg Vial IM PRN PRN Hypoglycemia Protocol Glucose 15 gm 03/10/25 08:32 Glucose Oral Gel 15 Gm Of Glucse In 37.5 Gm Tube PO PRN PRN Hypoglycemia Protocol Albumin Human 50 mls @ 999 mls/hr 03/10/25 00:42 Albutein IVPB 04/09/25 00:41 Q10M PRN HYPOTENSION Dextrose 1,000 mls @ 100 mls/hr 03/10/25 08:32 Dextrose 5% 1,000 Ml IVPB PRN PRN Hypoglycemia Protocol Insulin Aspart 2 - 5 units 03/10/25 12:00 03/14/25 12:30 Insulin Aspart (*Bkc) 100 Units/Ml SUB-Q Not Given TIDWM [facility] Protocol Meclizine HCl 25 mg 03/10/25 08:22 Meclizine Hcl 25 Mg Tablet PO Q8H PRN Dizziness Midodrine 10 mg 03/10/25 09:00 03/14/25 09:56 Midodrine Hcl 10 Mg Tablet PO 10 mg 0800,1400 [facility] Administration Mirtazapine 15 mg 03/10/25 21:00 03/13/25 22:07 Mirtazapine 15 Mg Tablet PO 15 mg HS [facility] Administration Mirtazapine 7.5 mg 03/10/25 21:00 03/13/25 22:09 Mirtazapine 7.5 Mg Tablet PO 7.5 mg HS [facility] Administration Multi-Ingred Cream/Lotion/Oil/Oint 1 applic 03/10/25 18:00 03/13/25 17:32 Eucerin Cream 120 Gm Jar TOPICAL 1 applic QPM [facility] Administration Multivitamins Therapeutic 1 tablet 03/10/25 09:00 03/14/25 09:54 Multivitamins Therapeutic Tab (*Bkc) PO 1 tablet DAILY [facility] Administration Sertraline HCl 25 mg 03/10/25 21:00 03/13/25 22:07 Sertraline Hcl 25 Mg Tablet PO 25 mg HS [facility] Administration Sevelamer Carbonate 800 mg 03/10/25 17:00 03/13/25 16:43 Sevelamer Carbonate 800 Mg Tablet PO 800 mg DAILY@1700 [facility] Administration Tamsulosin HCl 0.4 mg 03/10/25 17:00 03/13/25 16:43 Tamsulosin Hcl 0.4 Mg Capsule PO 0.4 mg DAILY@1700 [facility] Administration Tizanidine HCl 2 mg 03/10/25 17:00 03/12/25 08:03 Tizanidine Hcl 2 Mg Tablet PO Not Given BID [facility] Tizanidine HCl 2 mg 03/11/25 13:00 03/11/25 16:18 Tizanidine Hcl 2 Mg Tablet PO 2 mg SuTuThSa@1300 [facility] Administration Tramadol HCl 50 mg 03/10/25 08:22 Tramadol Hcl (*Crx) 50 Mg Tablet PO Q4H PRN Pain (Scale Score 4-6) Radiology Results: ITS Impressions Chest CTA 03/09/25 20:53 IMPRESSION: No pulmonary embolus. No thoracic aortic dissection. Significant enlargement of the main pulmonary artery, consistent with pulmonary hypertension. Redemonstration of cardiomegaly. Extensive mediastinal and supraclavicular lymphadenopathy, unchanged from prior. Bibasilar consolidation with small bilateral pleural effusions. Head CT 03/11/25 10:42 Impression: No significant abnormality seen. Chest X-Ray 03/13/25 06:56 IMPRESSION: 1. Unchanged mild opacities in the lower lung zones which could represent atelectasis or pneumonia. 2. Cardiomegaly. Labs Labs: Laboratory Tests 03/14/25 06:19 03/14/25 06:19 Calcium 8.2 L Phosphorus 2.5 Magnesium 2.3 Albumin 2.7 L
[2025-03-14] MEDS: TAMSULOSIN HCL 0.4 MG CAPSULE PO (17:43)
[2025-03-14] MEDS: SEVELAMER CARBONATE 800 MG TABLET PO (17:43)
[2025-03-14] MEDS: EUCERIN CREAM 120 GM JAR 1 APPLIC TOPICAL (17:43)
[2025-03-14] MEDS: ATORVASTATIN 40 MG TABLET PO (21:33)
[2025-03-14] MEDS: MIRTAZAPINE 7.5 MG TABLET PO (21:34)
[2025-03-14] MEDS: SERTRALINE HCL 25 MG TABLET PO (21:34)
[2025-03-14] MEDS: MIRTAZAPINE 15 MG TABLET PO (21:34)
[2025-03-15] VITALS (22 sets, daily range): BP systolic 92–128; BP diastolic 40–61; PULSE 58–71; RESP 12–16; TEMP 36.7–37; O2SAT 97–100
[2025-03-15 07:09] LABS: Hematocrit 27.7 % (42.0-52.0); Hemoglobin 8.3 g/dL (14.0-18.0); Immature Platelet Fraction Pct 5.6 % (0.9-11.2); Mean Corpuscular HGB Conc 30.0 g/dl (32-36); Mean Corpuscular Hemoglobin 31.6 pg (26-34); Mean Corpuscular Volume 105.3 fl (80-100); Platelet Count Result 79 k/mm3 (150-375); Red Blood Count 2.63 M/mm3 (4.6-6.20); White Blood Count 4.8 K/mm3 (4.5-10.0)
[2025-03-15 07:29] LABS: Albumin Level 2.7 g/dL (3.5-5.1); Anion Gap 12 mmol/L (4-12); Blood Urea Nitrogen 61 mg/dL (9-20); Calcium 8.2 mg/dL (8.4-10.2); Carbon Dioxide 30 mmol/L (22-30); Chloride 100 mmol/L (98-107); Estimated CRCL calculation 11 ml/min; Estimated Glomerular Filt Rate 8; Glucose 131 mg/dL (65-110); Magnesium 2.4 mg/dL (1.6-2.3); Potassium 3.7 mmol/L (3.4-5.0); Sodium 142 mmol/L (137-145)
--- NOTE | 2025-03-15 08:04 | PC.NURSE ---
Patient off of unit to dialysis
--- NOTE | 2025-03-15 09:30 | P.PNNP_ITS ---
Progress Note: A&P Assessment and Plan (1) ESRD (end stage renal disease): Code(s): N18.6 - End stage renal disease Status: Chronic Assessment and Plan: * HD today * continue M/W/F schedule while hospitalized * follow electrolytes, volume status, and clearance (2) Acute hypoxemic respiratory failure: Code(s): J96.01 - Acute respiratory failure with hypoxia Status: Acute Assessment and Plan: * hypoxia noted in ER * presumably due to volume overload (and missed HD treatments) * push fluid removal/ultrafiltration as tolerated by hemodynamics * DUF session (on 03/13) for further fluid removal... * concern for possible pneumonia on admission but this seems less likely * BiPAP support PRN * wean supplemental oxygen (3) Anemia: Code(s): D64.9 - Anemia, unspecified Status: Chronic Assessment and Plan: * due to ESRD and possibly worsened by acute illness * Epogen with HD * follow trend of H/H (4) Fluid overload: Qualifiers: Hypervolemia type: other Qualified Code(s): E87.79 - Other fluid overload Code(s): E87.70 - Fluid overload, unspecified Status: Acute Assessment and Plan: * presumed etiology of #2 * fluid removal as tolerated by hemodynamics * s/p dry ultrafiltration session (on 03/13)... * follow respiratory status (5) Altered mental status: Code(s): R41.82 - Altered mental status, unspecified Status: Acute Assessment and Plan: * as noted on presentation * slow improvement noted * suspect secondary to missed dialysis treatments and hypoxa * CT of head negative (6) Diabetes mellitus with multiple complications: Code(s): E11.8 - Type 2 diabetes mellitus with unspecified complications Status: Chronic Assessment and Plan: * follow Accu-Cheks * glycemic control per hospitalist Will continue to follow. L Subjective Date/time seen: 03/15/25 09:30 Interval history: Follow-up for end stage renal disease on hemodialysis. Tolerating dialysis treatment at the time of my visit (seen on HD at 9:20am); breathing/respiratory status seems stable if not better; remains on supplemental oxygen but no longer requiring BiPAP support; no other acute issues/events noted overnight or earlier this morning. Exam 2 Narrative: General: WD/WN male in NAD Heart: normal S1 and S2; no rub Lungs: coarse breath sounds Abdomen: soft, nontender, nondistended, positive bowel sounds Extremities: no cyanosis or clubbing; trace edema; s/p bilateral BKAs Skin: no rnodules Objective Data Vital Signs Vital Signs: Vital Signs Temp Pulse Resp BP Pulse Ox O2 Del Method O2 Flow Rate 03/15/25 09:30 63 113/47 L 03/15/25 09:15 60 98/48 L 03/15/25 09:00 58 L 105/42 L 03/15/25 08:45 59 L 105/58 L 03/15/25 08:30 60 124/56 L 03/15/25 08:18 60 127/57 L 03/15/25 08:10 2 03/15/25 08:07 98.1 F 61 16 125/57 L 100 03/15/25 08:00 99 Nasal Cannula 2 03/15/25 02:15 15 BiPAP 03/14/25 22:49 22 H BiPAP 03/14/25 22:00 97.6 F 54 L 18 115/57 L 100 03/14/25 21:10 96 Nasal Cannula 2 Intake/Output Intake/Output: Intake & Output 03/12/25 03/13/25 03/14/25 03/15/25 23:59 23:59 23:59 23:59 Intake Total 693 876 6956 1688 Output Total 3000 2500 0 1999 Balance -2120 -1960 1750 -312 Meds/Results Medications: Active Medications Generic Name Dose Route Start Last Admin Trade Name Freq PRN Reason Stop Dose Admin Acetaminophen 650 mg 03/10/25 08:22 03/13/25 08:17 Acetaminophen 325 Mg Tablet PO 650 mg Q6H PRN Administration Pain (Scale Score 1-3) Aspirin 325 mg 03/11/25 09:00 03/15/25 09:02 Aspirin 325 Mg Enteric Tablet PO Not Given QAM [facility] Atorvastatin Calcium 40 mg 03/10/25 21:00 03/14/25 21:33 Atorvastatin 40 Mg Tablet PO 40 mg HS [facility] Administration Dextrose 12.5 gm 03/10/25 08:32 03/12/25 07:38 Dextrose 50% 25 Gm/50 Ml Syringe IV PUSH 12.5 gm PRN PRN Administration Hypoglycemia Protocol Famotidine 10 mg 03/11/25 09:00 03/15/25 09:02 Famotidine 10 Mg Tablet PO Not Given DAILY [facility] Ferrous Sulfate 325 mg 03/10/25 09:00 03/15/25 09:02 Ferrous Sulfate [address] BY MOUTH Not Given DAILY [facility] Fish Oil 1 gm 03/10/25 11:00 03/15/25 09:02 [place] 3 Polyunsat Fatty Acids 1 Gm Cap PO Not Given DAILY [facility] Folic Acid 1 mg 03/10/25 09:00 03/15/25 09:02 Folic Acid 1 Mg Tablet PO Not Given DAILY [facility] Gabapentin 200 mg 03/10/25 21:00 03/11/25 21:22 Gabapentin 100 Mg Capsule PO 200 mg HS [facility] Administration Glucagon 1 mg 03/10/25 08:32 Glucagon For Inj 1 Mg Vial IM PRN PRN Hypoglycemia Protocol Glucose 15 gm 03/10/25 08:32 Glucose Oral Gel 15 Gm Of Glucse In 37.5 Gm Tube PO PRN PRN Hypoglycemia Protocol Albumin Human 50 mls @ 999 mls/hr 03/10/25 00:42 Albutein IVPB 04/09/25 00:41 Q10M PRN HYPOTENSION Dextrose 1,000 mls @ 100 mls/hr 03/10/25 08:32 Dextrose 5% 1,000 Ml IVPB PRN PRN Hypoglycemia Protocol Insulin Aspart 2 - 5 units 03/10/25 12:00 03/15/25 16:52 Insulin Aspart (*Bkc) 100 Units/Ml SUB-Q Not Given TIDWM [facility] Protocol Meclizine HCl 25 mg 03/10/25 08:22 Meclizine Hcl 25 Mg Tablet PO Q8H PRN Dizziness Midodrine 10 mg 03/10/25 09:00 03/15/25 17:45 Midodrine Hcl 10 Mg Tablet PO 10 mg 0800,1400 [facility] Administration Mirtazapine 15 mg 03/10/25 21:00 03/14/25 21:34 Mirtazapine 15 Mg Tablet PO 15 mg HS [facility] Administration Mirtazapine 7.5 mg 03/10/25 21:00 03/14/25 21:34 Mirtazapine 7.5 Mg Tablet PO 7.5 mg HS [facility] Administration Multi-Ingred Cream/Lotion/Oil/Oint 1 applic 03/10/25 18:00 03/15/25 17:45 Eucerin Cream 120 Gm Jar TOPICAL 1 applic QPM [facility] Administration Multivitamins Therapeutic 1 tablet 03/10/25 09:00 03/15/25 09:02 Multivitamins Therapeutic Tab (*Bkc) PO Not Given DAILY [facility] Sertraline HCl 25 mg 03/10/25 21:00 03/14/25 21:34 Sertraline Hcl 25 Mg Tablet PO 25 mg HS [facility] Administration Sevelamer Carbonate 800 mg 03/10/25 17:00 03/15/25 17:45 Sevelamer Carbonate 800 Mg Tablet PO 800 mg DAILY@1700 [facility] Administration Tizanidine HCl 2 mg 03/10/25 17:00 03/12/25 08:03 Tizanidine Hcl 2 Mg Tablet PO Not Given BID [facility] Tizanidine HCl 2 mg 03/11/25 13:00 03/11/25 16:18 Tizanidine Hcl 2 Mg Tablet PO 2 mg SuTuThSa@1300 [facility] Administration Tramadol HCl 50 mg 03/10/25 08:22 Tramadol Hcl (*Crx) 50 Mg Tablet PO Q4H PRN Pain (Scale Score 4-6) Radiology Results: ITS Impressions Chest CTA 03/09/25 20:53 IMPRESSION: No pulmonary embolus. No thoracic aortic dissection. Significant enlargement of the main pulmonary artery, consistent with pulmonary hypertension. Redemonstration of cardiomegaly. Extensive mediastinal and supraclavicular lymphadenopathy, unchanged from prior. Bibasilar consolidation with small bilateral pleural effusions. Head CT 03/11/25 10:42 Impression: No significant abnormality seen. Chest X-Ray 03/13/25 06:56 IMPRESSION: 1. Unchanged mild opacities in the lower lung zones which could represent atelectasis or pneumonia. 2. Cardiomegaly. Labs Labs: Laboratory Tests 03/15/25 06:48 03/15/25 06:48 Calcium 8.2 L Phosphorus 3.7 Magnesium 2.4 H Albumin 2.7 L Microbiology 03/09/25 14:32 Blood Blood Culture - Final 03/09/25 14:46 Blood Blood Culture - Final 03/09/25 14:13 Sputum Sputum White Blood Cells - Final 03/09/25 14:13 Sputum Sputum Epithelial Cells - Final 03/09/25 14:13 Sputum Gram Stain Sputum Result 1 - Final 03/09/25 14:13 Sputum Gram Stain Sputum Result 2 - Final 03/09/25 14:13 Sputum Gram Stain Sputum Result 3 - Final 03/09/25 14:13 Sputum Gram Stain Sputum Result 4 - Final 03/09/25 14:13 Sputum Gram Stain Evaluation - Final 03/09/25 14:13 Sputum Sputum Culture - Final Haemophilus influenzae
[2025-03-15] MEDS: SODIUM CHLORIDE 0.9% IV 1,000 ML 999 ML IV CONT (10:09)
--- NOTE | 2025-03-15 10:09 | PM.IMPN ---
Progress Note: A&P Assessment and Plan (1) Type 2 diabetes mellitus: Code(s): E11.9 - Type 2 diabetes mellitus without complications Status: Acute (2) Fluid overload: Qualifiers: Hypervolemia type: other Qualified Code(s): E87.79 - Other fluid overload Code(s): E87.70 - Fluid overload, unspecified Status: Acute (3) Respiratory failure: Code(s): J96.90 - Respiratory failure, unspecified, unspecified whether with hypoxia or hypercapnia Status: Acute (4) Weakness: Code(s): R53.1 - Weakness Status: Acute (5) Altered mental status: Code(s): R41.82 - Altered mental status, unspecified Status: Acute Plan 59-year-old male with a history of ESRD on hemodialysis Saturday at [facility] followed by Dr. Almodovar, chronic anemia, paroxysmal atrial fibrillation, combined systolic and diastolic heart failure, CAD status post 4 vessel bypass, hypertension, hyperlipidemia, [id number] diabetes mellitus, bilateral BKA and other comorbidities who presents to [facility] ER on 03/10/2025 from [facility] due to shortness of breath, weakness, confusion. Acute respiratory failure with hypoxemia Acute on chronic combined heart failure End-stage renal disease on hemodialysis Acute respiratory failure and acute heart failure likely resulting from noncompliance with hemodialysis Patient was placed on BiPAP initially Consult insurance advisor for dialysis Continue O2 therapy to keep pulse ox above 92 Chronic patient is on nasal cannular Hypokalemia He was also hyperkalemic and received bicarb insulin and dextrose and received fluids. Patient underwent hemodialysis Corrected chronic anemia, Resulting from chronic renal disease No obvious sign of bleeding Acute metabolic encephalopathy Resulting from uremia, hypoxemia, electrolyte disorder Mental status is improving Hypotension Continue midodrine p.o. Discontinue tamsulosin Subjective Date/time seen: 03/15/25 10:09 Interval history: I saw exam patient in presents of patient's niece. Patient feels comfortable today, patient is off BiPAP on nasal cannular during the daytime Dyspnea is improving after hemodialysis. Patient denies chest pain, shortness breast abdomen pain Exam Narrative: GENERAL: Pleasant, in no acute distress. Well-nourished. - EYES: EOMI. Anicteric. - HENT: Moist mucous membranes. - LUNGS: Coarse breath sound bilaterally - CARDIOVASCULAR: Regular rate and rhythm. No murmur. No JVD. - ABDOMEN: Soft, non-tender and non-distended. No palpable masses. - EXTREMITIES: No edema. Peripheral pulses 2+. Non-tender. - NEUROLOGIC: No focal neurological deficits. CN II-XII grossly intact. - PSYCHIATRIC: Awake, Alert and oriented x 3. Appropriate mood and affect. - SKIN: No rashes or lesions. Warm. - LYMPH: No cervical lymphadenopathy. Objective Data Vital Signs Vital Signs: Vital Signs - 24 hr 03/14/25 11:35 03/14/25 14:00 03/14/25 21:10 Temperature 97.9 F Pulse Rate 57 L Respiratory Rate 20 Blood Pressure 179/73 H Pulse Oximetry 100 99 96 Oxygen Delivery Nasal Cannula Nasal Cannula Oxygen Flow Rate 2 2 03/14/25 22:00 03/14/25 22:49 03/15/25 02:15 Temperature 97.6 F Pulse Rate 54 L Respiratory Rate 18 22 H 15 Blood Pressure 115/57 L Pulse Oximetry 100 Oxygen Delivery BiPAP BiPAP Oxygen Flow Rate 03/15/25 08:00 03/15/25 08:07 03/15/25 08:10 Temperature 98.1 F Pulse Rate 61 Respiratory Rate 16 Blood Pressure 125/57 L Pulse Oximetry 99 100 Oxygen Delivery Nasal Cannula Oxygen Flow Rate 2 2 03/15/25 08:18 03/15/25 08:30 03/15/25 08:45 Temperature Pulse Rate 60 60 59 L Respiratory Rate Blood Pressure 127/57 L 124/56 L 105/58 L Pulse Oximetry Oxygen Delivery Oxygen Flow Rate 03/15/25 09:00 03/15/25 09:15 03/15/25 09:30 Temperature Pulse Rate 58 L 60 63 Respiratory Rate Blood Pressure 105/42 L 98/48 L 113/47 L Pulse Oximetry Oxygen Delivery Oxygen Flow Rate 03/15/25 09:45 Temperature Pulse Rate 66 Respiratory Rate Blood Pressure 106/44 L Pulse Oximetry Oxygen Delivery Oxygen Flow Rate Intake/Output Intake/Output: Intake & Output 03/12/25 03/13/25 03/14/25 03/15/25 23:59 23:59 23:59 23:59 Intake Total 944 295 0669 Output Total 3000 2500 0 0 Balance -2119 -1959 1750 0 Meds/Results Medications: Active Medications Generic Name Dose Route Start Last Admin Trade Name Saulo PRN Reason Stop Dose Admin Acetaminophen 650 mg 03/10/25 08:22 03/13/25 08:17 Acetaminophen 325 Mg Tablet PO 650 mg Q6H PRN Administration Pain (Scale Score 1-3) Aspirin 325 mg 03/11/25 09:00 03/15/25 09:02 Aspirin 325 Mg Enteric Tablet PO Not Given QAM [facility] Atorvastatin Calcium 40 mg 03/10/25 21:00 03/14/25 21:33 Atorvastatin 40 Mg Tablet PO 40 mg HS [facility] Administration Dextrose 12.5 gm 03/10/25 08:32 03/12/25 07:38 Dextrose 50% 25 Gm/50 Ml Syringe IV PUSH 12.5 gm PRN PRN Administration Hypoglycemia Protocol Epoetin [place]-epbx 10,000 units 03/15/25 18:10 Epoetin [place]-Epbx 10,000 Units/Ml Vial IV PUSH 03/15/25 18:11 ONCE ONE Famotidine 10 mg 03/11/25 09:00 03/15/25 09:02 Famotidine 10 Mg Tablet PO Not Given DAILY [facility] Ferrous Sulfate 325 mg 03/10/25 09:00 03/15/25 09:02 Ferrous Sulfate [address] BY MOUTH Not Given DAILY [facility] Fish Oil 1 gm 03/10/25 11:00 03/15/25 09:02 [place] 3 Polyunsat Fatty Acids 1 Gm Cap PO Not Given DAILY [facility] Folic Acid 1 mg 03/10/25 09:00 03/15/25 09:02 Folic Acid 1 Mg Tablet PO Not Given DAILY [facility] Gabapentin 200 mg 03/10/25 21:00 03/11/25 21:22 Gabapentin 100 Mg Capsule PO 200 mg HS [facility] Administration Glucagon 1 mg 03/10/25 08:32 Glucagon For Inj 1 Mg Vial IM PRN PRN Hypoglycemia Protocol Glucose 15 gm 03/10/25 08:32 Glucose Oral Gel 15 Gm Of Glucse In 37.5 Gm Tube PO PRN PRN Hypoglycemia Protocol Albumin Human 50 mls @ 999 mls/hr 03/10/25 00:42 Albutein IVPB 04/09/25 00:41 Q10M PRN HYPOTENSION Dextrose 1,000 mls @ 100 mls/hr 03/10/25 08:32 Dextrose 5% 1,000 Ml IVPB PRN PRN Hypoglycemia Protocol Insulin Aspart 2 - 5 units 03/10/25 12:00 03/15/25 09:02 Insulin Aspart (*Bkc) 100 Units/Ml SUB-Q Not Given TIDWM [facility] Protocol Meclizine HCl 25 mg 03/10/25 08:22 Meclizine Hcl 25 Mg Tablet PO Q8H PRN Dizziness Midodrine 10 mg 03/10/25 09:00 03/14/25 15:06 Midodrine Hcl 10 Mg Tablet PO 10 mg 0800,1400 [facility] Administration Mirtazapine 15 mg 03/10/25 21:00 03/14/25 21:34 Mirtazapine 15 Mg Tablet PO 15 mg HS [facility] Administration Mirtazapine 7.5 mg 03/10/25 21:00 03/14/25 21:34 Mirtazapine 7.5 Mg Tablet PO 7.5 mg HS [facility] Administration Multi-Ingred Cream/Lotion/Oil/Oint 1 applic 03/10/25 18:00 03/14/25 17:43 Eucerin Cream 120 Gm Jar TOPICAL 1 applic QPM [facility] Administration Multivitamins Therapeutic 1 tablet 03/10/25 09:00 03/15/25 09:02 Multivitamins Therapeutic Tab (*Bkc) PO Not Given DAILY [facility] Sertraline HCl 25 mg 03/10/25 21:00 03/14/25 21:34 Sertraline Hcl 25 Mg Tablet PO 25 mg HS [facility] Administration Sevelamer Carbonate 800 mg 03/10/25 17:00 03/14/25 17:43 Sevelamer Carbonate 800 Mg Tablet PO 800 mg DAILY@1700 [facility] Administration Tamsulosin HCl 0.4 mg 03/10/25 17:00 03/14/25 17:43 Tamsulosin Hcl 0.4 Mg Capsule PO 0.4 mg DAILY@1700 [facility] Administration Tizanidine HCl 2 mg 03/10/25 17:00 03/12/25 08:03 Tizanidine Hcl 2 Mg Tablet PO Not Given BID [facility] Tizanidine HCl 2 mg 03/11/25 13:00 03/11/25 16:18 Tizanidine Hcl 2 Mg Tablet PO 2 mg SuTuThSa@1300 [facility] Administration Tramadol HCl 50 mg 03/10/25 08:22 Tramadol Hcl (*Crx) 50 Mg Tablet PO Q4H PRN Pain (Scale Score 4-6) Radiology Results: ITS Impressions Chest CTA 03/09/25 20:53 IMPRESSION: No pulmonary embolus. No thoracic aortic dissection. Significant enlargement of the main pulmonary artery, consistent with pulmonary hypertension. Redemonstration of cardiomegaly. Extensive mediastinal and supraclavicular lymphadenopathy, unchanged from prior. Bibasilar consolidation with small bilateral pleural effusions. Head CT 03/11/25 10:42 Impression: No significant abnormality seen. Chest X-Ray 03/13/25 06:56 IMPRESSION: 1. Unchanged mild opacities in the lower lung zones which could represent atelectasis or pneumonia. 2. Cardiomegaly. Labs Labs: Laboratory Results - last 24 hr 03/14/25 03/14/25 03/14/25 11:42 16:52 20:02 WBC RBC Hgb Hct MCV MCH MCHC RDW Plt Count MPV % Immature Plt Fraction Sodium Potassium Chloride Carbon Dioxide Anion Gap BUN Creatinine Estim Creat Clear Calc Estimated GFR Glucose POC Capillary Glucose 143 H 169 H 171 H Calcium Phosphorus Magnesium Albumin 03/15/25 06:48 WBC 4.8 RBC 2.63 L Hgb 8.3 L Hct 27.7 L MCV 105.3 H MCH 31.6 MCHC 30.0 L RDW 16.5 H Plt Count 79 L MPV 11.6 H % Immature Plt Fraction 5.6 Sodium 142 Potassium 3.7 Chloride 100 Carbon Dioxide 30 Anion Gap 12 BUN 61 H D Creatinine 6.93 H Estim Creat Clear Calc 11 Estimated GFR 8 L Glucose 131 H POC Capillary Glucose Calcium 8.2 L Phosphorus 3.7 Magnesium 2.4 H Albumin 2.7 L
--- NOTE | 2025-03-15 11:03 | PCNFU ---
Nutrition Follow-Up Complete: Increased protein energy needs related to wound healing as evidenced by deep tissue pressure injury Adequate PO intake at least 75% to promote wound healing - Goal is being met. Continue with same goal Goal: Pt current nutrition is Renal diet. Nepro BID (420 kcal, 19 g protein( and Malik BID for wounds (90 kcal, 2.5 g protein, arginine , glutamine) Nutrition recommendation: No new recommendations. Continue current nutrition care plan and orders. Agree with orders Last recorded weight is 83.4 kg. Bowel Motility: +1 BM 03/14 Labs Reviewed: Hgb 8.3, Hct 27.7, Alb 2.7, BUN 61, Cre 6.93, Glu 131, Mag 2.4 Meds Noted: Mirtazapine, sevelamer, insulin Skin: Deep tissue pressure injury L buttock. BL BKA Additional Notes: Intakes are good 75-100%. Family brought in food. Possible discharge today per notes Monitoring intakes, weights, labs, supplement tolerance, skin, plan of care Follow up in 5 days
[2025-03-15] MEDS: MIDODRINE HCL 10 MG TABLET PO (17:45)
[2025-03-15] MEDS: SEVELAMER CARBONATE 800 MG TABLET PO (17:45)
[2025-03-15] MEDS: EUCERIN CREAM 120 GM JAR 1 APPLIC TOPICAL (17:45)
[2025-03-15] MEDS: MIRTAZAPINE 15 MG TABLET PO (21:13)
[2025-03-15] MEDS: ATORVASTATIN 40 MG TABLET PO (21:13)
[2025-03-15] MEDS: MIRTAZAPINE 7.5 MG TABLET PO (21:13)
[2025-03-15] MEDS: SERTRALINE HCL 25 MG TABLET PO (21:13)
[2025-03-16 04:50] VITALS: BP 124/56; PULSE 67; RESP 16; TEMP 36.7; O2SAT 92
[2025-03-16 05:55] LABS: Hematocrit 30.6 % (42.0-52.0); Hemoglobin 9.2 g/dL (14.0-18.0); Immature Platelet Fraction Pct 5.2 % (0.9-11.2); Mean Corpuscular HGB Conc 30.1 g/dl (32-36); Mean Corpuscular Hemoglobin 31.7 pg (26-34); Mean Corpuscular Volume 105.5 fl (80-100); Platelet Count Result 93 k/mm3 (150-375); Red Blood Count 2.90 M/mm3 (4.6-6.20); White Blood Count 3.6 K/mm3 (4.5-10.0)
[2025-03-16 06:19] LABS: Albumin Level 2.9 g/dL (3.5-5.1); Anion Gap 7 mmol/L (4-12); Blood Urea Nitrogen 33 mg/dL (9-20); Calcium 8.3 mg/dL (8.4-10.2); Carbon Dioxide 30 mmol/L (22-30); Chloride 102 mmol/L (98-107); Estimated CRCL calculation 20 ml/min; Estimated Glomerular Filt Rate 15; Glucose 162 mg/dL (65-110); Magnesium 2.1 mg/dL (1.6-2.3); Potassium 3.7 mmol/L (3.4-5.0); Sodium 139 mmol/L (137-145)
[2025-03-16] MEDS: ASPIRIN 325 MG ENTERIC TABLET PO (09:02)
[2025-03-16] MEDS: FAMOTIDINE 10 MG TABLET PO (09:02)
[2025-03-16] MEDS: OMEGA 3 POLYUNSAT FATTY ACIDS 1 GM CAP PO (09:02)
[2025-03-16] MEDS: FOLIC ACID 1 MG TABLET PO (09:02)
[2025-03-16] MEDS: FERROUS SULFATE 325 MG TABLET DR BY MOUTH (09:02)
[2025-03-16] MEDS: MULTIVITAMINS THERAPEUTIC TAB (*BKC) 1 TABLET PO (09:02)
[2025-03-16] MEDS: MIDODRINE HCL 10 MG TABLET PO ×2 (09:04→13:39)
--- NOTE | 2025-03-16 10:15 | P.PNNP_ITS ---
Progress Note: A&P Assessment and Plan (1) ESRD (end stage renal disease): Code(s): N18.6 - End stage renal disease Status: Chronic Assessment and Plan: * HD tomorrow * continue M/W/F schedule while hospitalized * follow electrolytes, volume status, and clearance (2) Acute hypoxemic respiratory failure: Code(s): J96.01 - Acute respiratory failure with hypoxia Status: Acute Assessment and Plan: * resolving (if not resolved) * hypoxia noted in ER * presumably due to volume overload (and missed HD treatments) * push fluid removal/ultrafiltration as tolerated by hemodynamics * DUF session (on 03/13) for further fluid removal... * concern for possible pneumonia on admission but this seems less likely * BiPAP support PRN * weaned off supplemental oxygen (3) Anemia: Code(s): D64.9 - Anemia, unspecified Status: Chronic Assessment and Plan: * due to ESRD and possibly worsened by acute illness * Epogen with HD * follow trend of H/H (4) Fluid overload: Qualifiers: Hypervolemia type: other Qualified Code(s): E87.79 - Other fluid overload Code(s): E87.70 - Fluid overload, unspecified Status: Acute Assessment and Plan: * presumed etiology of #2 * fluid removal as tolerated by hemodynamics * s/p dry ultrafiltration session (on 03/13)... * follow respiratory status (5) Altered mental status: Code(s): R41.82 - Altered mental status, unspecified Status: Acute Assessment and Plan: * as noted on presentation * slow improvement noted * suspect secondary to missed dialysis treatments and hypoxa * CT of head negative (6) Diabetes mellitus with multiple complications: Code(s): E11.8 - Type 2 diabetes mellitus with unspecified complications Status: Chronic Assessment and Plan: * follow Accu-Cheks * glycemic control per hospitalist Will continue to follow. L Subjective Date/time seen: 03/16/25 10:15 Interval history: Follow-up for end stage renal disease on hemodialysis. Tolerated dialysis treatment yesterday without any issues or problems; weaned off supplemental oxygen (on room air); no apparent distress voiced at the time of my visit; no other issues/events overnight or earlier this morning. Exam 2 Narrative: General: WD/WN male in NAD Heart: normal S1 and S2; no rub Lungs: coarse breath sounds Abdomen: soft, nontender, nondistended, positive bowel sounds Extremities: no cyanosis or clubbing; trace edema; s/p bilateral BKAs Skin: warm and dry Objective Data Vital Signs Vital Signs: Vital Signs Temp Pulse Resp BP Pulse Ox O2 Del Method 03/16/25 09:08 Room Air 03/16/25 04:50 98.1 F 67 16 124/56 L 92 03/15/25 20:51 98.4 F 71 16 128/61 100 03/15/25 20:00 Room Air 03/15/25 14:00 98.4 F 63 12 123/46 L 97 Intake/Output Intake/Output: Intake & Output 03/13/25 03/14/25 03/15/25 03/16/25 23:59 23:59 23:59 23:59 Intake Total 540 1750 1688 120 Output Total 2500 0 2000 Balance -1960 1750 -312 120 Meds/Results Medications: Active Medications Generic Name Dose Route Start Last Admin Trade Name Freq PRN Reason Stop Dose Admin Acetaminophen 650 mg 03/10/25 08:22 03/13/25 08:17 Acetaminophen 325 Mg Tablet PO 650 mg Q6H PRN Administration Pain (Scale Score 1-3) Aspirin 325 mg 03/11/25 09:00 03/16/25 09:02 Aspirin 325 Mg Enteric Tablet PO 325 mg QAM SALVADOR Administration Atorvastatin Calcium 40 mg 03/10/25 21:00 03/15/25 21:13 Atorvastatin 40 Mg Tablet PO 40 mg HS SALVADOR Administration Dextrose 12.5 gm 03/10/25 08:32 03/12/25 07:38 Dextrose 50% 25 Gm/50 Ml Syringe IV PUSH 12.5 gm PRN PRN Administration Hypoglycemia Protocol Famotidine 10 mg 03/11/25 09:00 03/16/25 09:02 Famotidine 10 Mg Tablet PO 10 mg DAILY SALVADOR Administration Ferrous Sulfate 325 mg 03/10/25 09:00 03/16/25 09:02 Ferrous Sulfate [address] BY MOUTH 325 mg DAILY SALVADOR Administration Fish Oil 1 gm 03/10/25 11:00 03/16/25 09:02 [place] 3 Polyunsat Fatty Acids 1 Gm Cap PO 1 gm DAILY SALVADOR Administration Folic Acid 1 mg 03/10/25 09:00 03/16/25 09:02 Folic Acid 1 Mg Tablet PO 1 mg DAILY SALVADOR Administration Gabapentin 200 mg 03/10/25 21:00 03/11/25 21:22 Gabapentin 100 Mg Capsule PO 200 mg HS SALVADOR Administration Glucagon 1 mg 03/10/25 08:32 Glucagon For Inj 1 Mg Vial IM PRN PRN Hypoglycemia Protocol Glucose 15 gm 03/10/25 08:32 Glucose Oral Gel 15 Gm Of Glucse In 37.5 Gm Tube PO PRN PRN Hypoglycemia Protocol Albumin Human 50 mls @ 999 mls/hr 03/10/25 00:42 Albutein IVPB 04/09/25 00:41 Q10M PRN HYPOTENSION Dextrose 1,000 mls @ 100 mls/hr 03/10/25 08:32 Dextrose 5% 1,000 Ml IVPB PRN PRN Hypoglycemia Protocol Insulin Aspart 2 - 5 units 03/10/25 12:00 03/16/25 12:27 Insulin Aspart (*Bkc) 100 Units/Ml SUB-Q Not Given TIDWM SALVADOR Protocol Meclizine HCl 25 mg 03/10/25 08:22 Meclizine Hcl 25 Mg Tablet PO Q8H PRN Dizziness Midodrine 10 mg 03/10/25 09:00 03/16/25 09:04 Midodrine Hcl 10 Mg Tablet PO 10 mg 0800,1400 SAL[facility]ADOR Administration Mirtazapine 15 mg 03/10/25 21:00 03/15/25 21:13 Mirtazapine 15 Mg Tablet PO 15 mg HS SALVADOR Administration Mirtazapine 7.5 mg 03/10/25 21:00 03/15/25 21:13 Mirtazapine 7.5 Mg Tablet PO 7.5 mg HS SALVADOR Administration Multi-Ingred Cream/Lotion/Oil/Oint 1 applic 03/10/25 18:00 03/15/25 17:45 Eucerin Cream 120 Gm Jar TOPICAL 1 applic QPM SALVADOR Administration Multivitamins Therapeutic 1 tablet 03/10/25 09:00 03/16/25 09:02 Multivitamins Therapeutic Tab (*Bkc) PO 1 tablet DAILY SALVADOR Administration Sertraline HCl 25 mg 03/10/25 21:00 03/15/25 21:13 Sertraline Hcl 25 Mg Tablet PO 25 mg HS SALVADOR Administration Sevelamer Carbonate 800 mg 03/10/25 17:00 03/15/25 17:45 Sevelamer Carbonate 800 Mg Tablet PO 800 mg DAILY@1700 SAL[facility]ADOR Administration Tizanidine HCl 2 mg 03/10/25 17:00 03/12/25 08:03 Tizanidine Hcl 2 Mg Tablet PO Not Given BID [facility] Tizanidine HCl 2 mg 03/11/25 13:00 03/11/25 16:18 Tizanidine Hcl 2 Mg Tablet PO 2 mg SuTuThSa@1300 SALVADOR Administration Tramadol HCl 50 mg 03/10/25 08:22 Tramadol Hcl (*Crx) 50 Mg Tablet PO Q4H PRN Pain (Scale Score 4-6) Radiology Results: ITS Impressions Chest CTA 03/09/25 20:53 IMPRESSION: No pulmonary embolus. No thoracic aortic dissection. Significant enlargement of the main pulmonary artery, consistent with pulmonary hypertension. Redemonstration of cardiomegaly. Extensive mediastinal and supraclavicular lymphadenopathy, unchanged from prior. Bibasilar consolidation with small bilateral pleural effusions. Head CT 03/11/25 10:42 Impression: No significant abnormality seen. Chest X-Ray 03/13/25 06:56 IMPRESSION: 1. Unchanged mild opacities in the lower lung zones which could represent atelectasis or pneumonia. 2. Cardiomegaly. Labs Labs: Laboratory Tests 03/16/25 05:42 03/16/25 05:41 Calcium 8.3 L Phosphorus 1.6 L Magnesium 2.1 Albumin 2.9 L Microbiology 03/09/25 14:32 Blood Blood Culture - Final 03/09/25 14:46 Blood Blood Culture - Final
--- NOTE | 2025-03-16 10:42 | P.PNIM_ITS ---
Progress Note: A&P Assessment and Plan (1) Type 2 diabetes mellitus: Code(s): E11.9 - Type 2 diabetes mellitus without complications Status: Acute (2) Fluid overload: Qualifiers: Hypervolemia type: other Qualified Code(s): E87.79 - Other fluid overload Code(s): E87.70 - Fluid overload, unspecified Status: Acute (3) Respiratory failure: Code(s): J96.90 - Respiratory failure, unspecified, unspecified whether with hypoxia or hypercapnia Status: Acute (4) Weakness: Code(s): R53.1 - Weakness Status: Acute (5) Altered mental status: Code(s): R41.82 - Altered mental status, unspecified Status: Acute Plan 59-year-old male with a history of ESRD on hemodialysis Saturday at [facility] (formerly [facility]) followed by Dr. Almodovar, chronic anemia, paroxysmal atrial fibrillation, combined systolic and diastolic heart failure, CAD status post 4 vessel bypass, hypertension, hyperlipidemia, [id number] diabetes mellitus, bilateral BKA and other comorbidities who presents to [facility] ER on 03/10/[address] [facility] due to shortness of breath, weakness, confusion. Acute respiratory failure with hypoxemia Acute on chronic combined heart failure End-stage renal disease on hemodialysis Acute respiratory failure and acute heart failure likely resulting from noncompliance with hemodialysis Patient was placed on BiPAP initially Consult paint roller winder for dialysis Continue O2 therapy to keep pulse ox above 92 Hypokalemia He was also hyperkalemic and received bicarb insulin and dextrose and received fluids. Patient underwent hemodialysis Corrected chronic anemia, Resulting from chronic renal disease No obvious sign of bleeding Acute metabolic encephalopathy Resulting from uremia, hypoxemia, electrolyte disorder Mental status is improving Hypotension Continue midodrine p.o. Discontinue tamsulosin May discharge patient back to longterm after hemodialysis tomorrow Subjective Date/time seen: 03/16/25 10:42 Interval history: I saw exam patient today, patient underwent dialysis, Patient feels dyspnea is improving Denies chest pain abdomen pain nausea vomiting diarrhea Exam Narrative: GENERAL: Pleasant, in no acute distress. Well-nourished. - EYES: EOMI. Anicteric. - HENT: Moist mucous membranes. - LUNGS: Coarse breath sound bilaterall y - CARDIOVASCULAR: Regular rate and rhyth m. No murmur. No JVD. - ABDOMEN: Soft, non-tender and non-dist ended. No palpable masses. - EXTREMITIES: No edema. Bilateral belo w-knee amputation, Non-tender. - NEUROLOGIC: No focal neurological defi cits. CN II-XII grossly intact. - PSYCHIATRIC: Awake, Alert and oriented x 3. Appropriate mood and affect. - SKIN: No rashes or lesions. Warm. - LYMPH: No cervical lymphadenopathy. Objective Data Vital Signs Vital Signs: Vital Signs - 24 hr 03/15/25 10:50 03/15/25 11:00 03/15/25 11:15 Temperature Pulse Rate Respiratory Rate Blood Pressure 100/46 L 94/42 L 97/40 L Pulse Oximetry Oxygen Delivery 03/15/25 11:39 03/15/25 11:48 03/15/25 11:55 Temperature Pulse Rate Respiratory Rate Blood Pressure 92/40 L 98/41 L 100/45 L Pulse Oximetry Oxygen Delivery 03/15/25 14:00 03/15/25 20:00 03/15/25 20:51 Temperature 98.4 F 98.4 F Pulse Rate 63 71 Respiratory Rate 12 16 Blood Pressure 123/46 L 128/61 Pulse Oximetry 97 100 Oxygen Delivery Room Air 03/16/25 04:50 03/16/25 09:08 Temperature 98.1 F Pulse Rate 67 Respiratory Rate 16 Blood Pressure 124/56 L Pulse Oximetry 92 Oxygen Delivery Room Air Intake/Output Intake/Output: Intake & Output 03/13/25 03/14/25 03/15/25 03/16/25 23:59 23:59 23:59 23:59 Intake Total 540 1750 1688 120 Output Total 2500 0 1999 Balance -1960 1750 -312 120 Meds/Results Medications: Active Medications Generic Name Dose Route Start Last Admin Trade Name Freq PRN Reason Stop Dose Admin Acetaminophen 650 mg 03/10/25 08:22 03/13/25 08:17 Acetaminophen 325 Mg Tablet PO 650 mg Q6H PRN Administration Pain (Scale Score 1-3) Aspirin 325 mg 03/11/25 09:00 03/16/25 09:02 Aspirin 325 Mg Enteric Tablet PO 325 mg QAM SALVADOR Administration Atorvastatin Calcium 40 mg 03/10/25 21:00 03/15/25 21:13 Atorvastatin 40 Mg Tablet PO 40 mg HS SALVADOR Administration Dextrose 12.5 gm 03/10/25 08:32 03/12/25 07:38 Dextrose 50% 25 Gm/50 Ml Syringe IV PUSH 12.5 gm PRN PRN Administration Hypoglycemia Protocol Famotidine 10 mg 03/11/25 09:00 03/16/25 09:02 Famotidine 10 Mg Tablet PO 10 mg DAILY SALVADOR Administration Ferrous Sulfate 325 mg 03/10/25 09:00 03/16/25 09:02 Ferrous Sulfate [address] BY MOUTH 325 mg DAILY SALVADOR Administration Fish Oil 1 gm 03/10/25 11:00 03/16/25 09:02 [place] 3 Polyunsat Fatty Acids 1 Gm Cap PO 1 gm DAILY SALVADOR Administration Folic Acid 1 mg 03/10/25 09:00 03/16/25 09:02 Folic Acid 1 Mg Tablet PO 1 mg DAILY SALVADOR Administration Gabapentin 200 mg 03/10/25 21:00 03/11/25 21:22 Gabapentin 100 Mg Capsule PO 200 mg HS SALVADOR Administration Glucagon 1 mg 03/10/25 08:32 Glucagon For Inj 1 Mg Vial IM PRN PRN Hypoglycemia Protocol Glucose 15 gm 03/10/25 08:32 Glucose Oral Gel 15 Gm Of Glucse In 37.5 Gm Tube PO PRN PRN Hypoglycemia Protocol Albumin Human 50 mls @ 999 mls/hr 03/10/25 00:42 Albutein IVPB 04/09/25 00:41 Q10M PRN HYPOTENSION Dextrose 1,000 mls @ 100 mls/hr 03/10/25 08:32 Dextrose 5% 1,000 Ml IVPB PRN PRN Hypoglycemia Protocol Insulin Aspart 2 - 5 units 03/10/25 12:00 03/16/25 08:29 Insulin Aspart (*Bkc) 100 Units/Ml SUB-Q Not Given TIDWM SALVADOR Protocol Meclizine HCl 25 mg 03/10/25 08:22 Meclizine Hcl 25 Mg Tablet PO Q8H PRN Dizziness Midodrine 10 mg 03/10/25 09:00 03/16/25 09:04 Midodrine Hcl 10 Mg Tablet PO 10 mg 0800,1400 SALVADOR Administration Mirtazapine 15 mg 03/10/25 21:00 03/15/25 21:13 Mirtazapine 15 Mg Tablet PO 15 mg HS SALVADOR Administration Mirtazapine 7.5 mg 03/10/25 21:00 03/15/25 21:13 Mirtazapine 7.5 Mg Tablet PO 7.5 mg HS SALVADOR Administration Multi-Ingred Cream/Lotion/Oil/Oint 1 applic 03/10/25 18:00 03/15/25 17:45 Eucerin Cream 120 Gm Jar TOPICAL 1 applic QPM SALVADOR Administration Multivitamins Therapeutic 1 tablet 03/10/25 09:00 03/16/25 09:02 Multivitamins Therapeutic Tab (*Bkc) PO 1 tablet DAILY SALVADOR Administration Sertraline HCl 25 mg 03/10/25 21:00 03/15/25 21:13 Sertraline Hcl 25 Mg Tablet PO 25 mg HS SALVADOR Administration Sevelamer Carbonate 800 mg 03/10/25 17:00 03/15/25 17:45 Sevelamer Carbonate 800 Mg Tablet PO 800 mg DAILY@1700 SALVADOR Administration Tizanidine HCl 2 mg 03/10/25 17:00 03/12/25 08:03 Tizanidine Hcl 2 Mg Tablet PO Not Given BID SALVADOR Tizanidine HCl 2 mg 03/11/25 13:00 03/11/25 16:18 Tizanidine Hcl 2 Mg Tablet PO 2 mg SuTuThSa@1300 [facility] Administration Tramadol HCl 50 mg 03/10/25 08:22 Tramadol Hcl (*Crx) 50 Mg Tablet PO Q4H PRN Pain (Scale Score 4-6) Radiology Results: ITS Impressions Chest CTA 03/09/25 20:53 IMPRESSION: No pulmonary embolus. No thoracic aortic dissection. Significant enlargement of the main pulmonary artery, consistent with pulmonary hypertension. Redemonstration of cardiomegaly. Extensive mediastinal and supraclavicular lymphadenopathy, unchanged from prior. Bibasilar consolidation with small bilateral pleural effusions. Head CT 03/11/25 10:42 Impression: No significant abnormality seen. Chest X-Ray 03/13/25 06:56 IMPRESSION: 1. Unchanged mild opacities in the lower lung zones which could represent atelectasis or pneumonia. 2. Cardiomegaly. Labs Labs: Laboratory Results - last 24 hr 03/15/25 03/15/25 03/15/25 12:55 16:40 20:46 WBC RBC Hgb Hct MCV MCH MCHC RDW Plt Count MPV % Immature Plt Fraction Sodium Potassium Chloride Carbon Dioxide Anion Gap BUN Creatinine Estim Creat Clear Calc Estimated GFR Glucose POC Capillary Glucose 101 129 H 189 H Calcium Phosphorus Magnesium Albumin 0703/16/25 03/16/25 05:41 05:42 08:09 WBC 3.6 L RBC 2.90 L Hgb 9.2 L Hct 30.6 L MCV 105.5 H MCH 31.7 MCHC 30.1 L RDW 16.6 H Plt Count 93 L MPV 12.0 H % Immature Plt Fraction 5.2 Sodium 139 Potassium 3.7 Chloride 102 Carbon Dioxide 30 Anion Gap 7 BUN 33 H D Creatinine 3.99 H Estim Creat Clear Calc 20 Estimated GFR 15 L Glucose 162 H POC Capillary Glucose 135 H Calcium 8.3 L Phosphorus 1.6 L Magnesium 2.1 Albumin 2.9 L
[2025-03-16 14:00] VITALS: BP 129/54; PULSE 64; RESP 20; TEMP 36.8; O2SAT 91
[2025-03-16] MEDS: EUCERIN CREAM 120 GM JAR 1 APPLIC TOPICAL (17:18)
[2025-03-16] MEDS: SERTRALINE HCL 25 MG TABLET PO (21:23)
[2025-03-16] MEDS: ATORVASTATIN 40 MG TABLET PO (21:23)
[2025-03-16] MEDS: MIRTAZAPINE 7.5 MG TABLET PO (21:23)
[2025-03-16] MEDS: MIRTAZAPINE 15 MG TABLET PO (21:23)
[2025-03-16 22:00] VITALS: BP 135/55; PULSE 58; RESP 18; TEMP 37; O2SAT 95
[2025-03-16 22:45] VITALS: O2SAT 93
[2025-03-17] VITALS (21 sets, daily range): BP systolic 90–133; BP diastolic 43–77; PULSE 55–945; RESP 16–18; TEMP 36–37; O2SAT 93–99
[2025-03-17] MEDS: ASPIRIN 325 MG ENTERIC TABLET PO (08:24)
[2025-03-17] MEDS: FAMOTIDINE 10 MG TABLET PO (08:24)
[2025-03-17] MEDS: MIDODRINE HCL 10 MG TABLET PO (08:24)
[2025-03-17] MEDS: FOLIC ACID 1 MG TABLET PO (08:24)
[2025-03-17] MEDS: OMEGA 3 POLYUNSAT FATTY ACIDS 1 GM CAP PO (08:24)
[2025-03-17] MEDS: FERROUS SULFATE 325 MG TABLET DR BY MOUTH (08:24)
[2025-03-17] MEDS: MULTIVITAMINS THERAPEUTIC TAB (*BKC) 1 TABLET PO (08:24)
[2025-03-17] MEDS: ACETAMINOPHEN 325 MG TABLET 650 MG PO (08:28)
[2025-03-17 09:37] LABS: Hematocrit 29.6 % (42.0-52.0); Hemoglobin 9.2 g/dL (14.0-18.0); Mean Corpuscular HGB Conc 31.1 g/dl (32-36); Mean Corpuscular Hemoglobin 31.7 pg (26-34); Mean Corpuscular Volume 102.1 fl (80-100); Platelet Count Result 106 k/mm3 (150-375); Red Blood Count 2.90 M/mm3 (4.6-6.20); White Blood Count 3.8 K/mm3 (4.5-10.0)
[2025-03-17 10:16] LABS: Albumin Level 2.9 g/dL (3.5-5.1); Anion Gap 10 mmol/L (4-12); Blood Urea Nitrogen 51 mg/dL (9-20); Calcium 8.4 mg/dL (8.4-10.2); Carbon Dioxide 28 mmol/L (22-30); Chloride 101 mmol/L (98-107); Estimated CRCL calculation 15 ml/min; Estimated Glomerular Filt Rate 11; Glucose 112 mg/dL (65-110); Magnesium 2.2 mg/dL (1.6-2.3); Potassium 3.7 mmol/L (3.4-5.0); Sodium 139 mmol/L (137-145)
--- NOTE | 2025-03-17 14:44 | P.DS_ITS ---
DS: Admitting Diagnosis Discharge Date 03/17/25 Admitting Diagnosis Shortness of breath DS: Discharge Diagnosis Discharge Diagnosis (1) Type 2 diabetes mellitus: Code(s): E11.9 - Type 2 diabetes mellitus without complications Status: Acute (2) Fluid overload: Qualifiers: Hypervolemia type: other Qualified Code(s): E87.79 - Other fluid overload Code(s): E87.70 - Fluid overload, unspecified Status: Acute (3) Respiratory failure: Code(s): J96.90 - Respiratory failure, unspecified, unspecified whether with hypoxia or hypercapnia Status: Acute (4) Weakness: Code(s): R53.1 - Weakness Status: Acute (5) Altered mental status: Code(s): R41.82 - Altered mental status, unspecified Status: Acute Plan 59-year-old male with a history of ESRD on hemodialysis Saturday at [facility] [place] followed by Dr. Almodovar, chronic anemia, paroxysmal atrial fibrillation, combined systolic and diastolic heart failure, CAD status post 4 vessel bypass, hypertension, hyperlipidemia, [id number] diabetes mellitus, bilateral BKA and other comorbidities who presents to [facility] ER on 03/10/2025 from [facility] due to shortness of breath, weakness, confusion. Acute respiratory failure with hypoxemia Acute on chronic combined heart failure End-stage renal disease on hemodialysis Acute respiratory failure and acute heart failure likely resulting from noncompliance with hemodialysis Patient was placed on BiPAP initially Consult epic cadence specialists for dialysis Continue O2 therapy to keep pulse ox above 92 Hypokalemia He was also hyperkalemic and received bicarb insulin and dextrose and received fluids. Patient underwent hemodialysis Corrected chronic anemia, Resulting from chronic renal disease No obvious sign of bleeding Acute metabolic encephalopathy Resulting from uremia, hypoxemia, electrolyte disorder Mental status is improving Hypotension Continue midodrine p.o. Discontinue tamsulosin May discharge patient back to alf after hemodialysis tomorrow DS: Summary Hospital Course Hospital Course: 59-year-old male with a history of ESRD on hemodialysis Saturday at [facility] [place] followed by Dr. Almodovar, chronic anemia, paroxysmal atrial fibrillation, combined systolic and diastolic heart failure, CAD status post 4 vessel bypass, hypertension, hyperlipidemia, [id number]-sualgsnbp diabetes mellitus, bilateral BKA and other comorbidities who presents to [facility] ER on 03/10/2025 from [facility] due to shortness of breath, weakness, confusion. patient with history of ESRD on HD, patient had been refusing HD for last 6 days and became volume overloaded, short of breath, resulting AMS, patient was sent to ER and was found to have elevated BUN/Scr 87/9.57 with potassium of 5.5, patient was seen HD center currently having dialysis, still quite confused and unable to provide any history or ROS, suspect patient acute mental statue is stemming from missing, dialysis resulting elevated BUN/Scr, volume overload and shortness of breath. patient symptoms will improve after dialysis. patient was seen by epic cadence specialists and had multiple HD, patient clinical symptoms are improving and not as short of breath. patient now his baseline, will discharge today Time Spent with Patient Time attestation: Total time spent providing and/or coordinating discharge services: DS: Data Data Completed and Pending Labs on day of discharge: Labs from last 24 hours 03/17/25 03/17/25 03/17/25 12:04 09:27 08:09 WBC 3.8 L RBC 2.90 L Hgb 9.2 L Hct 29.6 L MCV 102.1 H MCH 31.7 MCHC 31.1 L RDW 16.7 H Plt Count 106 L MPV 12.0 H Sodium 139 Potassium 3.7 Chloride 101 Carbon Dioxide 28 Anion Gap 10 BUN 51 H D Creatinine 5.42 H Estim Creat Clear Calc 15 Estimated GFR 11 L Glucose 112 H POC Capillary Glucose 118 H 115 H Calcium 8.4 Phosphorus 2.3 L Magnesium 2.2 Albumin 2.9 L 03/16/25 03/16/25 19:48 16:57 WBC RBC Hgb Hct MCV MCH MCHC RDW Plt Count MPV Sodium Potassium Chloride Carbon Dioxide Anion Gap BUN Creatinine Estim Creat Clear Calc Estimated GFR Glucose POC Capillary Glucose 159 H 149 H Calcium Phosphorus Magnesium Albumin Discharge Plan Discharge Attending physician on discharge: Bianka Hall Consulting providers: Jone Bay; Nasim Gee; Nathalia Tran; Judy Malik; Domonique Kline; Kathryn Arceo; Williams Ahn; Brayden Lynne; Jose A Zimmer; Mayte North; Rohit Herr; Ian Morrison; Zeferino Granados Discharging Clinician: Jersey Garsia Patient Disposition: Home Activity: as tolerated Diet: renal and low sodium Patient Instructions: Antibiotic Form, Heart Failure (GEN) Patient Language: Hebrew Stand Alone Forms: General Discharge Information Follow-up/Referrals: Mick Plaza [Other] Jone Bay MD [Physician] - Discharge Medications: New aspirin 325 mg Tablet,Delayed Release (Dr/Ec) 325 mg PO QAM Qty: 30 0RF Continued multivitamin Tablet 1 tablet PO DAILY ferrous sulfate 325 mg (65 mg iron) Tablet 325 mg PO DAILY nitroglycerin 0.4 mg Tablet, Sublingual 0.4 mg SUBLINGUAL Q5-15M PRN (Reason: Chest Pain) Rx Instructions: 3 dose max omega-3 fatty acids-fish oil 360-1,200 mg Capsule 1 cap PO DAILY atorvastatin [Lipitor] 40 mg Tablet 40 mg PO HS tamsulosin [Flomax] 0.4 mg Capsule 0.4 mg PO DAILY Rx Instructions: takes with evening meal folic acid 1 mg Tablet 1 mg PO DAILY gabapentin 100 mg Tablet 200 mg PO HS sevelamer carbonate 800 mg Tablet 800 mg PO DAILY@1700 mirtazapine 15 mg tablet 15 mg PO HS sertraline 50 mg tablet 25 mg PO HS Tradjenta 5 mg tablet 5 mg PO DAILY meclizine 25 mg Tablet 25 mg PO Q8H PRN (Reason: Dizziness) midodrine 10 mg Tablet 10 mg PO BID Patient Comments: hold if systolic bp is higher than 90 or diastolic greater than 60 Rx Instructions: takes at 0800 and 1400 acetaminophen [Tylenol] 325 mg Tablet 650 mg PO Q6H PRN (Reason: Pain (Scale Score 1-3)) sennosides-docusate sodium [Senna Plus] 8.6-50 mg Tablet 1 tablet PO BID PRN (Reason: Constipation) naloxone 4 mg/actuation spray,non-aerosol 1 spray INTRANASAL Q3M PRN (Reason: Opioid Overdose) tizanidine 2 mg tablet 2 mg PO TID Patient Comments: Sun, Andie, Nancy, Sat mirtazapine 7.5 mg tablet 7.5 mg PO HS Rx Instructions: with 15mg tab famotidine 20 mg tablet 20 mg PO BID tizanidine 2 mg tablet 2 mg PO BID Rx Instructions: Mon, Wed, Fri nut.tx.imp.renal fxn,lac-reduc 0.08 gram-1.8 kcal/mL liquid 1 ea PO HS Rx Instructions: 1 can at hs ascorbic acid (vitamin C) 500 mg tablet 500 mg PO BID zinc sulfate 220 mg capsule 220 mg PO DAILY polyethylene glycol 3350 17 gram powder in packet 17 g PO DAILY PRN (Reason: constipation) Nephro-[place] 0.8 mg tablet 1 tablet PO DAILY guaifenesin 100 mg/5 mL Syrup 600 mg PO Q8H PRN (Reason: Cough) Eucerin Cream 1 applic TOPICAL QPM diphenoxylate-atropine [Lomotil] 2.5-0.025 mg Tablet 2 tablet PO TID PRN (Reason: Diarrhea) Qty: 15 0RF Rx Instructions: do not exceed 10 days consecutively tramadol 50 mg tablet 50 mg PO Q4H PRN (Reason: Pain (Scale Score 4-6)) Qty: 15 0RF Discontinued aspirin 81 mg Tablet 81 mg PO DAILY Date of admission: 03/09/25 21:57 Primary Care Provider: Mick Plaza Admitting Provider: Bianka Hall Attending physician on admission: Jersey Garsia Condition: Improved
--- NOTE | 2025-03-17 15:25 | P.PNNP_ITS ---
Progress Note: A&P Assessment and Plan (1) ESRD (end stage renal disease): Code(s): N18.6 - End stage renal disease Status: Chronic Assessment and Plan: * HD today * continue M/W/F schedule while hospitalized * follow electrolytes, volume status, and clearance (2) Acute hypoxemic respiratory failure: Code(s): J96.01 - Acute respiratory failure with hypoxia Status: Acute Assessment and Plan: * resolving (if not resolved) * hypoxia noted in ER * presumably due to volume overload (and missed HD treatments) * push fluid removal/ultrafiltration as tolerated by hemodynamics * DUF session (on 03/13) for further fluid removal... * concern for possible pneumonia on admission but this seems less likely * BiPAP support PRN * weaned off supplemental oxygen (3) Anemia: Code(s): D64.9 - Anemia, unspecified Status: Chronic Assessment and Plan: * due to ESRD and possibly worsened by acute illness * Epogen with HD * follow trend of H/H (4) Fluid overload: Qualifiers: Hypervolemia type: other Qualified Code(s): E87.79 - Other fluid overload Code(s): E87.70 - Fluid overload, unspecified Status: Acute Assessment and Plan: * presumed etiology of #2 * fluid removal as tolerated by hemodynamics * s/p dry ultrafiltration session (on 03/13)... * follow respiratory status (5) Altered mental status: Code(s): R41.82 - Altered mental status, unspecified Status: Acute Assessment and Plan: * as noted on presentation * slow improvement noted * suspect secondary to missed dialysis treatments and hypoxa * CT of head negative (6) Diabetes mellitus with multiple complications: Code(s): E11.8 - Type 2 diabetes mellitus with unspecified complications Status: Chronic Assessment and Plan: * follow Accu-Cheks * glycemic control per hospitalist Will continue to follow. L Subjective Date/time seen: 03/17/25 15:25 Interval history: Follow-up for end stage renal disease on hemodialysis. Tolerating dialysis treatment at the time of my visit (seen on HD at 3:15pm); no apparent distress noted when seen; breathing/respiratory status seems stable if not better; no other issues/events overnight or earlier this morning. Exam 2 Narrative: General: WD/WN male in NAD Heart: normal S1 and S2; no rub Lungs: clear anteriorly Abdomen: soft, nontender, nondistended, positive bowel sounds Extremities: no cyanosis or clubbing; trace edema; s/p bilateral BKAs Skin: warm and intact Objective Data Vital Signs Vital Signs: Vital Signs Temp Pulse Resp BP Pulse Ox O2 Del Method 03/17/25 15:18 56 L 131/64 03/17/25 15:10 97.8 F 57 L 16 133/58 L 96 03/17/25 14:00 96.8 F L 90 18 128/56 L 99 03/17/25 08:44 Room Air 03/17/25 06:00 97.8 F 64 18 113/43 L 93 03/16/25 22:45 93 Room Air 03/16/25 22:00 98.6 F 58 L 18 135/55 L 95 03/16/25 20:00 Room Air Intake/Output Intake/Output: Intake & Output 03/14/25 03/15/25 03/16/25 03/17/25 23:59 23:59 23:59 23:59 Intake Total 1750 1688 1340 0 Output Total 0 2000 0 Balance 1750 -312 1340 0 Meds/Results Medications: Active Medications Generic Name Dose Route Start Last Admin Trade Name Freq PRN Reason Stop Dose Admin Acetaminophen 650 mg 03/10/25 08:22 03/17/25 08:28 Acetaminophen 325 Mg Tablet PO 650 mg Q6H PRN Administration Pain (Scale Score 1-3) Aspirin 325 mg 03/11/25 09:00 03/17/25 08:24 Aspirin 325 Mg Enteric Tablet PO 325 mg QAM SALVADOR Administration Atorvastatin Calcium 40 mg 03/10/25 21:00 03/16/25 21:23 Atorvastatin 40 Mg Tablet PO 40 mg HS SALVADOR Administration Dextrose 12.5 gm 03/10/25 08:32 03/12/25 07:38 Dextrose 50% 25 Gm/50 Ml Syringe IV PUSH 12.5 gm PRN PRN Administration Hypoglycemia Protocol Famotidine 10 mg 03/11/25 09:00 03/17/25 08:24 Famotidine 10 Mg Tablet PO 10 mg DAILY SALVADOR Administration Ferrous Sulfate 325 mg 03/10/25 09:00 03/17/25 08:24 Ferrous Sulfate [address] BY MOUTH 325 mg DAILY SALVADOR Administration Fish Oil 1 gm 03/10/25 11:00 03/17/25 08:24 [place] 3 Polyunsat Fatty Acids 1 Gm Cap PO 1 gm DAILY SALVADOR Administration Folic Acid 1 mg 03/10/25 09:00 03/17/25 08:24 Folic Acid 1 Mg Tablet PO 1 mg DAILY SALVADOR Administration Gabapentin 200 mg 03/10/25 21:00 03/11/25 21:22 Gabapentin 100 Mg Capsule PO 200 mg HS SALVADOR Administration Glucagon 1 mg 03/10/25 08:32 Glucagon For Inj 1 Mg Vial IM PRN PRN Hypoglycemia Protocol Glucose 15 gm 03/10/25 08:32 Glucose Oral Gel 15 Gm Of Glucse In 37.5 Gm Tube PO PRN PRN Hypoglycemia Protocol Albumin Human 50 mls @ 999 mls/hr 03/10/25 00:42 Albutein IVPB 04/09/25 00:41 Q10M PRN HYPOTENSION Dextrose 1,000 mls @ 100 mls/hr 03/10/25 08:32 Dextrose 5% 1,000 Ml IVPB PRN PRN Hypoglycemia Protocol Insulin Aspart 2 - 5 units 03/10/25 12:00 03/17/25 17:07 Insulin Aspart (*Bkc) 100 Units/Ml SUB-Q Not Given TIDWM SALVADRO Protocol Meclizine HCl 25 mg 03/10/25 08:22 Meclizine Hcl 25 Mg Tablet PO Q8H PRN Dizziness Midodrine 10 mg 03/10/25 09:00 03/17/25 17:07 Midodrine Hcl 10 Mg Tablet PO Not Given 0800,1400 [facility]OR Mirtazapine 15 mg 03/10/25 21:00 03/16/25 21:23 Mirtazapine 15 Mg Tablet PO 15 mg HS SALVADOR Administration Mirtazapine 7.5 mg 03/10/25 21:00 03/16/25 21:23 Mirtazapine 7.5 Mg Tablet PO 7.5 mg HS SALVADOR Administration Multi-Ingred Cream/Lotion/Oil/Oint 1 applic 03/10/25 18:00 03/16/25 17:18 Eucerin Cream 120 Gm Jar TOPICAL 1 applic QPM SALVADOR Administration Multivitamins Therapeutic 1 tablet 03/10/25 09:00 03/17/25 08:24 Multivitamins Therapeutic Tab (*Bkc) PO 1 tablet DAILY SAL[facility]ADOR Administration Sertraline HCl 25 mg 03/10/25 21:00 03/16/25 21:23 Sertraline Hcl 25 Mg Tablet PO 25 mg HS SALVADOR Administration Sevelamer Carbonate 800 mg 03/10/25 17:00 03/15/25 17:45 Sevelamer Carbonate 800 Mg Tablet PO 800 mg DAILY@1700 [facility] Administration Tizanidine HCl 2 mg 03/10/25 17:00 03/12/25 08:03 Tizanidine Hcl 2 Mg Tablet PO Not Given BID SALVADOR Tizanidine HCl 2 mg 03/11/25 13:00 03/11/25 16:18 Tizanidine Hcl 2 Mg Tablet PO 2 mg SuTuThSa@1300 [facility] Administration Tramadol HCl 50 mg 03/10/25 08:22 Tramadol Hcl (*Crx) 50 Mg Tablet PO Q4H PRN Pain (Scale Score 4-6) Radiology Results: ITS Impressions Chest CTA 03/09/25 20:53 IMPRESSION: No pulmonary embolus. No thoracic aortic dissection. Significant enlargement of the main pulmonary artery, consistent with pulmonary hypertension. Redemonstration of cardiomegaly. Extensive mediastinal and supraclavicular lymphadenopathy, unchanged from prior. Bibasilar consolidation with small bilateral pleural effusions. Head CT 03/11/25 10:42 Impression: No significant abnormality seen. Chest X-Ray 03/13/25 06:56 IMPRESSION: 1. Unchanged mild opacities in the lower lung zones which could represent atelectasis or pneumonia. 2. Cardiomegaly. Labs Labs: Laboratory Tests 03/17/25 09:27 03/17/25 09:27 Calcium 8.4 Phosphorus 2.3 L Magnesium 2.2 Albumin 2.9 L
[2025-03-17] MEDS: EPOETIN ALFA-EPBX 10,000 UNITS/ML VIAL 10000 UNITS IV PUSH (16:56)
[2025-03-17] MEDS: MIRTAZAPINE 15 MG TABLET PO (20:22)
[2025-03-17] MEDS: ATORVASTATIN 40 MG TABLET PO (20:22)
[2025-03-17] MEDS: SERTRALINE HCL 25 MG TABLET PO (20:22)
[2025-03-17] MEDS: MIRTAZAPINE 7.5 MG TABLET PO (20:22)
== END 2025-03-17 21:48 | DRG 640 ==
LOC: ANHED 22:02 → ANHIMU 22:27 → ANH3MED 03-15 06:17 → ANHIMU 03-18 08:47
PROVIDERS: Emergency Medicine; Internal Medicine Nephrology; Physician Assistant; Admitting Provider Internal Medicine; Emergency Provider Emergency Medicine; Visit Provider Family Medicine
DX: E87.79 Other fluid overload (principal); G93.41 Metabolic encephalopathy; J96.01 Acute respiratory failure with hypoxia; N18.6 End stage renal disease; I13.2 Hypertensive heart and chronic kidney disease with heart failure and with stage 5 chronic kidney disease, or end stage renal disease; I50.42 Chronic combined systolic (congestive) and diastolic (congestive) heart failure; E11.22 Type 2 diabetes mellitus with diabetic chronic kidney disease; I25.10 Atherosclerotic heart disease of native coronary artery without angina pectoris; E11.42 Type 2 diabetes mellitus with diabetic polyneuropathy; R00.1 Bradycardia, unspecified; E78.5 Hyperlipidemia, unspecified; G47.33 Obstructive sleep apnea (adult) (pediatric); E87.6 Hypokalemia; D63.1 Anemia in chronic kidney disease; E87.5 Hyperkalemia; I95.2 Hypotension due to drugs; T44.6X5A Adverse effect of alpha-adrenoreceptor antagonists, initial encounter; I48.0 Paroxysmal atrial fibrillation; F41.9 Anxiety disorder, unspecified; Z79.85 Long-term (current) use of injectable non-insulin antidiabetic drugs; F32.A Depression, unspecified; Z91.158 Patient's noncompliance with renal dialysis for other reason; Z89.511 Acquired absence of right leg below knee; Z99.2 Dependence on renal dialysis; Z79.02 Long term (current) use of antithrombotics/antiplatelets; Z95.5 Presence of coronary angioplasty implant and graft; Z87.891 Personal history of nicotine dependence; Z95.1 Presence of aortocoronary bypass graft; Z89.512 Acquired absence of left leg below knee; Z79.82 Long term (current) use of aspirin
CPT/HCPCS: 36415; 36600; 70450; 71045; 71275; 80048; 80053; 80069; 82375; 82805; 82948; 83050; 83735; 83880; 84100; 85018; 85025; 85027; 85055; 85380; 85610; 85730; 86706; 87040; 87070; 87205; 87340; 87641; 93005; 94002; 94003; 94640; 96365; 96367; 96375; 99291; A9270; C8929; G0257; J0456; J0612; J0696; J1644; J1815; J2359; J7030; J7050; Q5105; Q9957; Q9967

== ENCOUNTER 2025-04-25 07:22 | Emergency (ER) | payer MEDICARE, SELFPAY ==
--- NOTE | ~2025-04-25 | XR_ITS ---
XR knee LT 3V 04/25/2025 08:13 Indication: Status post fall. Left knee pain. Procedure: 3 views left knee Comparison: No prior studies for comparison. Findings: There is a transverse comminuted fracture of the distal femur at the metaphysis with dorsal displacement and angulation. Diffuse osteopenia. Mottled appearance to the distal femur suggest underlying pathologic process. Cannot exclude pathologic fracture. Impression: 1: Acute comminuted displaced distal femoral metaphyseal fracture, possibly pathologic. 2: Mottled appearance to the distal aspect of the femur may represent myeloma, metastatic disease or Paget's disease. Reviewed, dictated and finalized at location O. Impression: 1: Acute comminuted displaced distal femoral metaphyseal fracture, possibly pat hologic. 2: Mottled appearance to the distal aspect of the femur may represent myeloma, metastatic disease or Paget's disease.
--- NOTE | ~2025-04-25 | XR_ITS ---
XR hip LT 2V w AP pelvis 04/25/2025 08:13 Indication: Status post fall. Hip pain. Procedure: 3 views of the left hip including AP pelvis Comparison: CT dated 02/07/2023 Findings: Osteopenia. There is abnormal angulation of the right hip, suspicious for nondisplaced fracture of uncertain age. There is osteoarthritis of the hips. Osteopenia. No acute left hip fracture is identified. Pelvic rings intact. There is mottled appearance to the proximal femurs bilaterally with mixed lucency and sclerosis. Impression: 1: Age-indeterminate fracture right proximal femur. This appears new compared with prior CT dated 02/07/2023. 2: Mottled appearance to the fingers bilaterally. Consider myeloma, metastatic disease and Paget's disease. Reviewed, dictated and finalized at location O. Impression: 1: Age-indeterminate fracture right proximal femur. This appears new compared w ith prior CT dated 02/07/2023. 2: Mottled appearance to the fingers bilaterally. Consider myeloma, metastatic disease and Paget's disease.
[2025-04-25 07:19] VITALS: BP 125/58; PULSE 63; RESP 16; TEMP 37; O2SAT 96
--- NOTE | 2025-04-25 07:33 | ED.LOWEXIN ---
HPI - Extremity Injury (Lower) General Chief Complaint: Extremity Injury, Lower Stated Complaint: leg injury Time Seen by Provider: 04/25/25 07:32 Source: patient Mode of arrival: ambulatory Limitations: no limitations History of Present Illness HPI Narrative: 59 YEARS OLD WHITE MALE CAME [facility] BY AMBULANCE COMPLAINING OF LEFT KNEE PAIN AFTER FALLING OUT OF BED YESTERDAY. HISTORY OF DIALYSIS, BELOW-KNEE AMPUTATION BILATERALLY. PATIENT DENIES OTHER INJURIES. Related Data Home Medications ?Medication ?Instructions ?Recorded ?Confirmed ?Last Taken ?Type ferrous sulfate 325 mg (65 mg 325 mg PO DAILY 06/01/20 03/10/25 03/02/24 History iron) tablet multivitamin 1 tablet PO DAILY 06/01/20 03/10/25 03/02/24 History nitroglycerin 0.4 mg sublingual 0.4 mg sublingual Q5-15M PRN Chest 06/01/20 03/10/25 Unknown History tablet Pain omega-3 fatty acids-fish oil 360 1 cap PO DAILY 06/01/20 03/10/25 03/02/24 History mg-1,200 mg capsule atorvastatin 40 mg tablet (Lipitor) 40 mg PO HS 12/23/20 03/10/25 03/02/24 History folic acid 1 mg tablet 1 mg PO DAILY 12/23/20 03/10/25 03/02/24 History gabapentin 100 mg tablet 200 mg PO HS 12/23/20 03/10/25 03/02/24 History sevelamer carbonate 800 mg tablet 800 mg PO DAILY@1700 12/23/20 03/10/25 03/02/24 History tamsulosin 0.4 mg capsule (Flomax) 0.4 mg PO DAILY 12/23/20 03/10/25 03/02/24 18:00 History linagliptin 5 mg tablet (Tradjenta) 5 mg PO DAILY 01/13/23 03/10/25 1 Day Ago History ~01/12/23 mirtazapine 15 mg tablet 15 mg PO HS 01/13/23 03/10/25 03/02/24 History sertraline 50 mg tablet 25 mg PO HS 01/13/23 03/10/25 03/02/24 History meclizine 25 mg tablet 25 mg PO Q8H PRN Dizziness 09/17/23 03/10/25 Unknown History midodrine 10 mg tablet 10 mg PO BID 09/17/23 03/10/25 03/02/24 14:00 History acetaminophen 325 mg tablet 650 mg PO Q6H PRN Pain (Scale 10/29/23 03/10/25 Unknown History (Tylenol) Score 1-3) naloxone 4 mg/actuation nasal spray 1 spray intranasal Q3M PRN Opioid 10/29/23 03/10/25 Unknown History Overdose sennosides 8.6 mg-docusate sodium 1 tablet PO BID PRN Constipation 10/29/23 03/10/25 Unknown History 50 mg tablet (Senna Plus) guaifenesin 100 mg/5 mL oral syrup 600 mg PO Q8H PRN Cough 03/03/24 03/10/25 Unknown History lanolin alcohols-mineral 1 applic topical QPM 03/03/24 03/10/25 03/02/24 History oil-w.petrolatum-ceresin topical cream (Eucerin topical cream) ascorbic acid (vitamin C) 500 mg 500 mg PO BID 03/10/25 03/10/25 Unknown History tablet famotidine 20 mg tablet 20 mg PO BID 03/10/25 03/10/25 Unknown History mirtazapine 7.5 mg tablet 7.5 mg PO HS 03/10/25 03/10/25 Unknown History nut.tx.imp.renal fxn,lac-reduc 1 ea PO HS 03/10/25 03/10/25 Unknown History 0.08 gram-1.8 kcal/mL oral liquid polyethylene glycol 3350 17 gram 17 g PO DAILY PRN constipation 03/10/25 03/10/25 Unknown History oral powder packet tizanidine 2 mg tablet 2 mg PO BID 03/10/25 03/10/25 Unknown History vitamin B complex-vitamin C-folic 1 tablet PO DAILY 03/10/25 03/10/25 Unknown History acid 0.8 mg tablet (Nephro-[place]) zinc sulfate 220 mg capsule 220 mg PO DAILY 03/10/25 03/10/25 Unknown History Allergies Allergy/AdvReac Type Severity Reaction Status Date / Time Penicillins Allergy Unknown Unknown Verified 04/25/25 07:33 bee venom protein (honey bee) Allergy Swelling Verified 04/25/25 07:33 Review of Systems Review of Systems: All systems reviewed & are unremarkable except as noted in HPI and below PMFSH Past Medical History Medical History Iron deficiency anemia MRSA infection Clostridium difficile diarrhea Paroxysmal atrial fibrillation Transient atrial fibrillation following bypass surgery. Coronary artery disease History of multiple stents and 4 vessel bypass. Type 2 diabetes mellitus Hyperlipidemia End-stage renal disease on hemodialysis Combined systolic and diastolic congestive heart failure Anxiety and depression Obstructive sleep apnea does not use a CPAP Anemia of chronic disease Diabetic nephropathy Diabetic peripheral neuropathy Arthritis Surgical History Surgical History History of right below knee amputation History of five vessel coronary artery bypass (2018) [facility] History of cataract extraction with lens replacement History of coronary artery stent placement History of cardiac catheterization History of left below knee amputation History of amputation of toe left 5th toe 2013 small toe on the right amputated Family History Family History Sibling Patient's sister is Diabetes mellitus Sister Acute myocardial infarction Three brothers and 2 sisters History of blood clots Sister Abdominal aortic aneurysm Sister Dementia Brother COPD (chronic obstructive pulmonary disease) Brother Father Acute myocardial infarction, Onset Age: 65 Mother History of blood clots Hypertension, Onset Age: 80 Social History Social History Social History: Surrogate medical decision maker: Melodie Roca (niece) or Alejandra Murray (sister). Code status: DNR/DNI Smoking packs per day: 0.25 Smoking cigarettes per day: 5.0 Years smoked: 30 Smoking pack-years: 7.50 Smoking status: Former smoker Alcohol intake: unknown Drinks per week: 2 Alcohol use details: Social alcohol use. Substance use: unknown Substance use type: marijuana Last use: 2018 Do You Feel Safe in your Home?: Yes Lack of Transportation: No Lack of Food: Never True Current Housing: I Have Housing Concerned About Future Housing: No Difficulty Paying Gas/Electric Bills: No Difficulty Paying for Meds: No Currently Unemployed: No Education: Don't Know Difficulty w/ Childcare or Family Care: No Additional living arrangements comments: [facility]. Additional occupation/education comments: Disabled. Spiritual care concerns: No Exam Narrative: GENERAL APPEARANCE: WELL-DEVELOPED, WELL-NOURISHED SKIN: PALE, RIGHT ARM DIALYSIS CATHETER IN PLACE HEAD: NORMOCEPHALIC, NONTRAUMATIC EYES: CLEAR CONJUNCTIVA ENT: OROPHARYNX NORMAL, EARS NORMAL, NOSE NORMAL NECK: SUPPLE, NONTENDER CHEST AND RESPIRATORY: AIRWAY PATENT, NO RESPIRATORY DISTRESS, NO ACCESSORY MUSCLE USE HEART: REGULAR RATE/RHYTHM ABDOMEN: SOFT, NONTENDER, NO ORGANOMEGALY, QUIET BOWEL SOUNDS VASCULAR: NORMAL PERIPHERAL PULSES, NORMAL CAPILLARY REFILL. MUSCULOSKELETAL: BILATERAL BELOW-KNEE AMPUTATION, DIFFUSE TENDERNESS OF THE LEFT KNEE, NO BRUISES, NO SWELLING, NO DEFORMITY NEUROLOGIC: ALERT AND ORIENTED ?3, [place] [employer] BLASTING IS NORMAL TESTED, NO GROSS MOTOR DEFICIT Course Consultations Consultation #1: DR GRACIELA BOWEN, OUTPATIENT FOLLOW-UP Date: 04/25/25 Time: 09:03 Vital Signs Vital signs: Vital Signs Temperature 37.0 C 04/25/25 07:19 Pulse Rate 63 04/25/25 07:19 Respiratory Rate 16 04/25/25 07:19 Blood Pressure 125/58 L 04/25/25 07:19 Pulse Oximetry 96 04/25/25 07:19 Oxygen Delivery Nasal Cannula 04/25/25 07:19 Oxygen Flow Rate 1 04/25/25 07:19 Temperature 37.0 C 04/25/25 07:19 Pulse Rate 63 04/25/25 08:17 Respiratory Rate 16 04/25/25 08:17 Blood Pressure 118/59 L 04/25/25 08:17 Pulse Oximetry 96 04/25/25 08:17 Oxygen Delivery Nasal Cannula 04/25/25 07:40 Oxygen Flow Rate 1 04/25/25 07:40 MDM - Extremity Injury (Lower) MDM Narrative Medical decision making narrative: DIFFERENTIAL DIAGNOSIS INCLUDE LEFT HIP FRACTURE, LEFT KNEE FRACTURE VERSUS CONTUSION. X-RAY LEFT HIP SHOWED as below X-RAY LEFT KNEE SHOWED as below Imaging Data Radiologist's impression: Impressions Hip/Pelvis X-Ray 04/25/25 08:23 Impression: 1: Age-indeterminate fracture right proximal femur. This appears new compared with prior CT dated 02/07/2023. 2: Mottled appearance to the fingers bilaterally. Consider myeloma, metastatic disease and Paget's disease. Knee X-Ray 04/25/25 08:27 Impression: 1: Acute comminuted displaced distal femoral metaphyseal fracture, possibly pathologic. 2: Mottled appearance to the distal aspect of the femur may represent myeloma, metastatic disease or Paget's disease. Critical Care Time Critical Care Time Critical Care Time: No Discharge Plan Discharge Clinical Impression: Closed fracture of left knee region Patient Disposition: NH Longterm/Asst Living Condition: Stable Instructions: Leg Fracture (ED) Additional Instructions: RETURN IF SYMPTOMS ARE WORSENING , CALL DR JACKSON FOR APPOINTMENT, TAKE IBUPROFEN NEEDED FOR ACHES AND PAIN, CONTINUE HOME MEDICATIONS. Patient Language: Slovak Prescriptions: New hydrocodone-acetaminophen 5-325 mg tablet 1 tablet PO Q4H Qty: 20 0RF No Action multivitamin Tablet 1 tablet PO DAILY ferrous sulfate 325 mg (65 mg iron) Tablet 325 mg PO DAILY nitroglycerin 0.4 mg Tablet, Sublingual 0.4 mg SUBLINGUAL Q5-15M PRN (Reason: Chest Pain) Rx Instructions: 3 dose max omega-3 fatty acids-fish oil 360-1,200 mg Capsule 1 cap PO DAILY atorvastatin [Lipitor] 40 mg Tablet 40 mg PO HS tamsulosin [Flomax] 0.4 mg Capsule 0.4 mg PO DAILY Rx Instructions: takes with evening meal folic acid 1 mg Tablet 1 mg PO DAILY gabapentin 100 mg Tablet 200 mg PO HS sevelamer carbonate 800 mg Tablet 800 mg PO DAILY@1700 mirtazapine 15 mg tablet 15 mg PO HS sertraline 50 mg tablet 25 mg PO HS Tradjenta 5 mg tablet 5 mg PO DAILY meclizine 25 mg Tablet 25 mg PO Q8H PRN (Reason: Dizziness) midodrine 10 mg Tablet 10 mg PO BID Patient Comments: hold if systolic bp is higher than 90 or diastolic greater than 60 Rx Instructions: takes at 0800 and 1400 acetaminophen [Tylenol] 325 mg Tablet 650 mg PO Q6H PRN (Reason: Pain (Scale Score 1-3)) sennosides-docusate sodium [Senna Plus] 8.6-50 mg Tablet 1 tablet PO BID PRN (Reason: Constipation) naloxone 4 mg/actuation spray,non-aerosol 1 spray INTRANASAL Q3M PRN (Reason: Opioid Overdose) mirtazapine 7.5 mg tablet 7.5 mg PO HS Rx Instructions: with 15mg tab famotidine 20 mg tablet 20 mg PO BID tizanidine 2 mg tablet 2 mg PO BID Rx Instructions: Mon, Wed, Fri nut.tx.imp.renal fxn,lac-reduc 0.08 gram-1.8 kcal/mL liquid 1 ea PO HS Rx Instructions: 1 can at hs ascorbic acid (vitamin C) 500 mg tablet 500 mg PO BID zinc sulfate 220 mg capsule 220 mg PO DAILY polyethylene glycol 3350 17 gram powder in packet 17 g PO DAILY PRN (Reason: constipation) Nephro-[place] 0.8 mg tablet 1 tablet PO DAILY aspirin 325 mg Tablet,Delayed Release (Dr/Ec) 325 mg PO QAM Qty: 30 0RF guaifenesin 100 mg/5 mL Syrup 600 mg PO Q8H PRN (Reason: Cough) Eucerin Cream 1 applic TOPICAL QPM diphenoxylate-atropine [Lomotil] 2.5-0.025 mg Tablet 2 tablet PO TID PRN (Reason: Diarrhea) Qty: 15 0RF Rx Instructions: do not exceed 10 days consecutively tramadol 50 mg tablet 50 mg PO Q4H PRN (Reason: Pain (Scale Score 4-6)) Qty: 15 0RF Follow-up/Referrals: Will,MD Theodore [Primary Care Provider, Unknown] Prosper Jackson MD [Physician, Orthopedics] - 04/28/25
[2025-04-25 07:40] VITALS: O2SAT 95
--- OUTSIDE RECORDS SUMMARY | 2025-04-25 07:57 | XMS_ITS | Clinical Summary ---
Author Organization [facility] [address] [place] [address] Care Team Providers Care Optometrist President/Practice Owner Name Role Phone Frandy Colunga MD Unavailable [phone] Alcon QuintanillaM Unavailable [phone] No, Physician Primary Care Provider [phone] Theodore Solis MD Unavailable Leah MARINO MD, [place] Unavailable [phone] Allergies Active Allergy Reactions Criticality Noted Date [...] signs of displacement. Discussed extensively with director process engineering and therapy. We will proceed with therapy [...] I reminded patient has sister and director process engineering at this appointment at [facility] at 1:[address] Bradley. We [...] PM CDT): Nonoperative management was recommended at [facility] earlier this summer. We will arrange outpatient follow up with Orthopedics but seems to be asymptomatic on that leg Assessment & Plan (03/26/2023 3:12 PM CDT): As per HPI, pain seems somewhat better controlled on current regimen. Recent x- rays did not show any new fractures. I reminded director process engineering the patient appears to still need appointment made with Orthopedics at [place]. Phone #[phone] Assessment & Plan (03/18/2023 4:48 PM CDT): [...] pain control with oxycodone. Discussed with director process engineering about getting follow up with Orthopedics in [...] seems to be slowly improving. Reminded director process engineering that patient has on April 23 appointment [...] be clinically improving neurologically. Discussed with director process engineering about getting neurosurgery follow up in about [...] 08/08/2021 Assessment & Plan (10/27/2021 3:09 PM FEED PREPARATION OPERATOR): EGD/Colonoscopy scheduled for 11/03/21 Hold aspirin 10/29/21 Assessment & Plan (08/15/2021 1:41 PM FEED PREPARATION OPERATOR): Patient was referred for colonoscopy and has appointment with GI. Abdominal pain has resolved. Assessment & Plan (08/08/2021 12:33 PM FEED PREPARATION OPERATOR): Last colonoscopy 2012 (Unavailable). Recurrent rectal pain and diarrhea. No hemorrhoids. Check CBC. Encounter for surgical after care following surgery of circulatory system 06/16/2021 Chronic diarrhea 06/06/2021 Assessment & Plan (10/03/2021 9:10 AM FEED PREPARATION OPERATOR): Pt was given Lomotil due to diarrhea and now c/o constipation. Resume questran and loperamide when constipation resolved. Assessment & Plan (07/28/2021 12:53 PM FEED PREPARATION OPERATOR): Pt was given Lomotil due to diarrhea and now c/o constipation. Resume questran and loperamide when constipation resolved. Assessment & Plan (07/18/2021 1:25 PM FEED PREPARATION OPERATOR): Continue cholestyramine and loperamide. Assessment & Plan [...] therapy Assessment & Plan (10/03/2021 9:09 AM FEED PREPARATION OPERATOR): Patient's pain is controlled with [place] Patient needs AKA wound functional level for prosthesis for transfer and ambulation on level surfaces at a fixed candence Assessment & Plan (06/14/2021 2:19 PM CDT): Percocet change to [place] as patient could not tolerate Assessment & Plan (05/31/2021 1:38 PM CDT): Continue PT/OT. Recurrent major depressive disorder, in remissio n 05/31/2021 Assessment & Plan (03/18/2023 4:46 PM CDT): Cont remeron, stable but fluctuates due to recent hosp stay and illnesses Assessment & Plan (07/28/2021 12:53 PM FEED PREPARATION OPERATOR): Continue Remeron and Zoloft. Assessment & Plan [...] tomorrow. Assessment & Plan (10/03/2021 9:11 AM FEED PREPARATION OPERATOR): Continue Tradjenta and Glargine. Blood sugars have been stable between 70 and 150 Assessment & Plan (09/05/2021 12:27 PM FEED PREPARATION OPERATOR): Continue Tradjenta and Glargine. Check A1c every 90 days. Assessment & Plan (08/01/2021 11:57 AM FEED PREPARATION OPERATOR): Blood glucose 110 - 138 Continue Glargine and Tradjenta Assessment & Plan (07/18/2021 1:24 PM FEED PREPARATION OPERATOR): Continue Tradjenta and glargine insulin. Assessment & Plan (06/29/2021 1:46 PM CDT): Stable on Tradjenta and glargine insulin. Assessment & Plan (06/06/2021 2:02 PM CDT): Continue Tradjenta and glargine Assessment & Plan (05/31/2021 1:46 PM CDT): Continue glargine and Tradjenta. Hypophosphatemia 05/30/2021 Assessment & Plan (05/30/2021 10:08 AM CDT): - Held sevelamer for low phosphorous level. - Given IV phos per renal 05/29 informatica (current) use of antibiotics Assessment & Plan [...] ich Assessment & Plan (10/03/2021 9:09 AM FEED PREPARATION OPERATOR): Not on anticoagulation. Continue Metoprolol, Aspirin. Assessment & Plan (08/01/2021 11:54 AM FEED PREPARATION OPERATOR): Not on anticoagulation. Continue Metoprolol, Aspirin. 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 Assessment & Plan (10/27/2021 3:10 PM FEED PREPARATION OPERATOR): Continue hemodialysis weekly. Assessment & Plan (08/07/2021 10:27 AM FEED PREPARATION OPERATOR): Currently on Sevelamer and Ferrous sulfate. Hemodialysis three days weekly. Assessment & Plan (07/14/2021 1:51 PM FEED PREPARATION OPERATOR): Continue Sevelamer and Ferrous sulfate. Assessment & [...] schedule Assessment & Plan (09/21/2020 8:33 AM FEED PREPARATION OPERATOR): - ESRD on dialysis as of August [...] Renvela. Assessment & Plan (09/15/2020 11:00 AM FEED PREPARATION OPERATOR): - Related to increased needs, chronic illness/injury and wounds - Nutrition consulted - Consistent carb diet. Will allow double portions of meat. - Supplements ordered Foot ulcer due to secondary DM 09/13/2020 Assessment & Plan (09/21/2020 8:32 AM FEED PREPARATION OPERATOR): Right foot wounds appeared about 1 month [...] Continue aspirin + Plavix daily Atherosclerosis of [place] artery of right lower extremity 09/06/2020 Overview (09/06/2020): Added automatically from request for surgery [id number] Peripheral arterial disease ([facility]) 09/06/2020 Overview (09/06/2020): Added automatically from request for surgery [id number] Assessment & Plan (03/06/2023 4:14 PM CDT): Continue medical management with statin. Patient is status post bilateral amputations for this reason Assessment & Plan (10/03/2021 9:13 AM FEED PREPARATION OPERATOR): Patient to continue aspirin Assessment & Plan [...] chair Assessment & Plan (09/18/2020 8:47 AM FEED PREPARATION OPERATOR): - s/p left BKA 05/2020. Presents now [...] 06/23/2020 Assessment & Plan (09/05/2021 12:26 PM FEED PREPARATION OPERATOR): Continue working with PT/OT. Follow up outpatient for prosthetic. Assessment & Plan (08/15/2021 1:43 PM FEED PREPARATION OPERATOR): Continue PT/OT Continue outpatient follow up for prosthetic on 08/21/21 (2pm), 08/28/21 (11am), and 09/06/21 (11am). Assessment & Plan (08/08/2021 12:35 PM FEED PREPARATION OPERATOR): Seen outpatient for prosthetic yesterday and has follow up again 08/21/21 (2pm), 08/28/21 (11am), and 09/06/21 (11am) Assessment & Plan (08/07/2021 10:29 AM FEED PREPARATION OPERATOR): Denies phanthom limb pain. Pain controlled cyclobenzaprine, Acetaminophen, and Gabapentin. Assessment & Plan (08/01/2021 11:53 AM FEED PREPARATION OPERATOR): Continue Aspirin and Gabapentin. Pain well controlled. Assessment & Plan (07/07/2021 12:45 PM CDT): Follow-up outpatient for prosthesis ([facility]) Continue gabapentin, acetaminophen, and physical and occupational therapy as tolerated. Assessment & Plan (06/29/2021 1:45 PM CDT): Patient measured for below-knee forensic investigator is yesterday and will follow-up for fitting ([facility]). Incision well-healed. Continue PT/OT. Continue gabapentin and acetaminophen. Assessment & Plan (06/19/2021 1:55 PM CDT): Patient had follow-up with vascular surgeon. Sutures removed and patient recommended for residual limb forensic investigator. Pain well controlled. Continue PT/OT Assessment & Plan (06/08/2021 3:02 PM CDT): Patient unable to tolerate oxycodone due to increased confusion. Discussed with MD and will discontinue oxycodone and changed to [place] to help with postoperative pain. Assessment & [...] center tomorrow Patient was not accepted at [facility] rehab per social work case manager Assessment & Plan (06/29/2020 9:55 AM CDT): [...] 05/19/2020 Assessment & Plan (07/14/2021 1:52 PM FEED PREPARATION OPERATOR): Continue Lasix 40 mg daily Assessment & Plan (09/15/2020 10:36 AM FEED PREPARATION OPERATOR): - Echo from 05/2020 LVEF 34% otherwise [...] degree HB on tele w/ very prolonged FL interval and resting bradycardia to mid 50-60s [...] degree HB on tele w/ very prolonged FL interval and resting bradycardia to mid 50-60s [...] degree HB on tele w/ very prolonged FL interval and resting bradycardia to mid 50s, [...] degree HB on tele w/ very prolonged FL interval and resting bradycardia to mid 50s, [...] degree HB on tele w/ very prolonged FL interval, consider restarting - on Entresto 49-51 [...] degree HB on tele w/ very prolonged FL interval, consider restarting - on Entresto 49-51 [...] degree HB on tele w/ very prolonged FL interval. Restart if able. - on Entresto [...] degree HB on tele w/ very prolonged FL interval. Restart if able. - on Entresto [...] Plan (05/19/2020 9:20 AM CDT): - BNP 37354 - Restart home carvedilol - Diuresis 2017 [...] (05/18/2020): Added automatically from request for surgery [id number] Assessment & Plan (06/01/2020 10:34 AM CDT): [...] (05/19/2020): Added automatically from request for surgery [id number] Assessment & Plan (02/28/2023 9:46 AM CDT): [...] eye. Assessment & Plan (09/22/2019 3:29 PM FEED PREPARATION OPERATOR): New cataract evaluation today Mature cataract OS [...] on admission with NSR with severely prolonged FL - as noted above, resuming low dose coreg - telemetry Assessment & Plan (06/29/2020 9:55 AM CDT): History of post-op AF - Not on AC on admission, ECG on admission with NSR with severely prolonged FL - as noted above, resuming low dose coreg - telemetry Assessment & Plan (06/28/2020 10:30 AM CDT): History of post-op AF - Not on AC on admission, ECG on admission with NSR with severely prolonged FL - Holding coreg for now while on dobutamine - telemetry Assessment & Plan (06/27/2020 1:26 PM CDT): History of post-op AF - Not on AC on admission, ECG on admission with NSR with severely prolonged FL - Holding coreg for now while on dobutamine - telemetry Assessment & Plan (06/26/2020 12:02 PM CDT): History of post-op AF - Not on AC on admission, ECG on admission with NSR with severely prolonged FL - Holding coreg for now while on dobutamine - telemetry Assessment & Plan (06/25/2020 2:28 PM CDT): History of post-op AF - Not on AC on admission, ECG on admission with NSR with severely prolonged FL - Holding coreg for now while on dobutamine - telemetry Assessment & Plan (06/24/2020 3:35 PM CDT): History of post-op AF - Not on AC on admission, ECG on admission with NSR with severely prolonged FL - Holding coreg for now while on dobutamine - telemetry Assessment & Plan (06/23/2020 9:22 AM CDT): History of post-op AF - Not on AC on admission, ECG on admission with NSR with severely prolonged FL - Holding coreg for now while on dobutamine - telemetry Assessment & Plan (06/22/2020 12:01 PM CDT): History of post-op AF - Not on AC on admission, ECG on admission with NSR with severely prolonged FL - Holding coreg for now while on dobutamine - telemetry Assessment & Plan (06/21/2020 10:44 AM CDT): History of post-op AF - Not on AC on admission, ECG on admission with NSR with severely prolonged FL - Holding coreg for now while on dobutamine - telemetry Assessment & Plan (06/20/2020 11:49 AM CDT): History of post-op AF - Not on AC on admission, ECG on admission with NSR with severely prolonged FL - Holding coreg for now while on [...] Pt remains under wound care at [facility]. - Discussed with patient the rational for treatment, culture results, risk of recurrent infection, signs/symptoms of recurrent infection, and to contact ID clinic with any questions or concerns. Assessment & Plan (06/30/2020 10:47 AM CDT): S/p L BKA - Continue daily wound care - PT/OT eval and treat [facility]. Assessment & Plan (06/29/2020 9:57 AM [...] Obesity 01/03/2015 Diabetes mellitus type II, uncontrolled ([facility] ) 08/18/2013 Overview (05/26/2020): May 2020: C-peptide [...] QID Assessment & Plan (09/15/2020 10:36 AM FEED PREPARATION OPERATOR): - Hgb A1c 8.5% 05/2020, 5.5% 09/2019 [...] as current doses - follow-up with his horseback excavator at [facility] for long-term therapy decisions. Consider [...] plavix Assessment & Plan (09/14/2020 11:01 AM FEED PREPARATION OPERATOR): - s/p CABG [address] Sae [...] Isordil Assessment & Plan (09/17/2020 6:52 AM FEED PREPARATION OPERATOR): - VS Q4 hrs - Continue home Lasix, hydralazine, metoprolol, Isordil Assessment & Plan (06/28/2020 10:41 AM CDT): - Elevated blood pressure - continue hydralazine 100 mg tid, isosorbide 40 mg tid - Coreg held with recent CHHA, likely resume low dose tomorrow Assessment & Plan (06/27/2020 1:27 PM CDT): - Elevated blood pressure - continue hydralazine 100 mg tid, isosorbide 40 mg tid - Coreg held with recent CHHA, likely resume tomorrow Assessment & Plan (06/26/2020 12:05 PM CDT): -Elevated blood pressure - continue hydralazine 100 mg tid, isosorbide 40 mg tid -Coreg held while on CHHA Assessment & Plan (06/25/2020 2:31 PM CDT): -Elevated blood pressure - continue hydralazine 100 mg tid, isosorbide 40 mg tid -Coreg held while on CHHA Assessment & Plan (06/24/2020 3:58 PM CDT): -Elevated blood pressure - continue hydralazine 100 mg tid, isosorbide 40 mg tid -Coreg held while on CHHA Assessment & Plan (06/23/2020 10:00 AM CDT): Elevated blood pressure - continue hydralazine 100 mg tid, isosorbide 40 mg tid Off carvedilol while being on dobutamine Continue to monitor Assessment & Plan (05/31/2020 11:11 AM CDT): On home carvedilol, held due to 1st degree HB with prolonged FL interval, borderline HR (56-60) - Start amlodipine 5mg Assessment & Plan (05/30/2020 1:28 PM CDT): On home carvedilol, held due to 1st degree HB with prolonged FL interval, borderline HR (56-60) - Start amlodipine 5mg Assessment & Plan (05/29/2020 10:58 AM CDT): On home carvedilol, held due to 1st degree HB with prolonged FL interval, borderline HR (56-60) - Start amlodipine 5mg Assessment & Plan (05/26/2020 12:36 PM CDT): On home carvedilol, held due to 1st degree HB with prolonged FL interval, borderline HR (56-60) - Start amlodipine 5mg Assessment & Plan (04/09/2018 2:22 PM CDT): Blood pressure within target Resolved Problems Problem Noted Date Diagnosed Date Resolved Date Diabetic ulcer of right fifth toe 11/14/2020 12/01/2020 Overview (11/17/2020): Added automatically from request for surgery [id number] Foot ulcer 11/14/2020 12/01/2020 Overview (11/22/2020): Added automatically from request for surgery [id number] Ulcer of right foot with bon e involvement without evidence of necrosis 11/14/2020 12/01/2020 Overview (11/22/2020): Added automatically from request for surgery [id number] Wound of left leg 11/14/2020 12/01/2020 Overview (11/25/2020): Added automatically from request for surgery [id number] Encounters Date Type Department Care Team Description 01/28/2025 Telephone [facility] Medicine Cardiology [address] [place] [address] [place] [id number] Constantino Escobar MD from Last 3 Months Immunizations Immunization Administration Dates Next Due Influenza, Quadrivalent, Spl it, Preservative Free, Intramuscular 07/01/2020 Influenza, Unspecified 06/16/2017,06/02/2017 Surgical History Surgery Date Site/Laterality Comments FL AMPUTATION TOE INTERPHALANGEAL JOINT 09/02/2011 - 09/01/2012 [...] Sleep apnea CAD (coronary artery disease) Gangrene ([facility]) Apical mural thrombus CKD (chronic kidney disease) Heart failure History of atrial fibrillation Ulcer of right foot with bon e involvement without evidence of necrosis ([facility]) 11/14/2020 Added automatically from [facility] for surgery [id number] Foot ulcer ([facility]) 11/14/2020 Added automatic ally from request for surgery [id number] Diabetic ulcer of right fift h toe ([facility]) 11/14/2020 Added automatically from [facility] for surgery [id number] Hypertension Hyperlipidemia Peripheral vascular disease Atrial fibrillation [...] a month Social Connection and Isolation Panel Answer Date Recorded In a typical week, how many times do you talk on the phone with family, friends, or neighbors? Three times a week 03/12/2023 How often do you get togethe r with friends or relatives? Once a week 03/12/2023 How often do you attend chur ch or latter day services? Never 03/12/2023 Do you belong to [...] place to sleep or slept in a intermediate (including now)? No 03/12/2023 Personal Safety Answer Date Recorded Have you ever been in or are you currently in a harmful physical or emotional relationship or is someone making you feel afraid or unsafe? Denies 04/16/2023 Sex and Gender Information Value Date Recorded Sex Assigned at Not on file Legal Sex Male 4:17 AM FEED PREPARATION OPERATOR Gender Identity Not on file Sexual Orientation [...] Pneumococcal vaccine <65 (2 of 2 - PPSV23, PCV20, or PCV21) 09/27/2020 08/02/2020 Hemoglobin A1C 08/17/2023 02/15/2023, 01/31, [...] Completed 04/16/2023 Medical Devices Implanted Type Area Mental Tester Device Identifier Shelf Expiration Date Model / Serial / Lot [employer] [id number] - [id number] - [id number] Implanted:Qty: 1 on 02/24/2020 by Jeremias May MD at [facility] Advanced Medicine Lens Left: Eye [employer] 09/01/2022 [id number] / [id number] / [employer] [id number] Zilver Ptx 7mm 40mm 125cm Drug Elute Otw Delivery System - [id number] - [id number] Implanted:Qty: 1 on 09/16/2020 by Frandy Colunga MD at [facility] Stent Right: Femoral [employer] 12/02/2021 [id number] / [id number] / [id number] [employer] [id number] Vascade 6/7fr Bioabsorbable Vascular System Compression Collagen - [id number] Implanted:Qty: 1 on 11/24/2020 by Eliseo Akins MD at [facility] [employer] 08/04/2022 [id number] / [id number] Procedures Procedure Name Priority Date/Time Associated Diagnosis Comments EGFR Routine 04/30/2023 3:09 AM CDT HEMOGLOBIN A1C STAT 02/15/2023 5:16 AM CDT LIPID PANEL STAT 02/15/2023 5:16 AM CDT COLONOSCOPY 11/03/2021 12:44 PM FEED PREPARATION OPERATOR HEPATITIS C ANTIBODY Routine 09/20/2020 8:35 PM FEED PREPARATION OPERATOR from Last 3 Months or Most Recently [...] MD LAB BLOOD ORDERABLES Final Result [facility] [address] [facility] Department [place] [address] * Hemoglobin A1c (02/15/2023 5:16 AM CDT) [...] Arias MD LAB BLOOD ORDERABLES Final Result [facility] [address] [facility] Department [place] [address] * (ABNORMAL) Lipid panel (02/15/2023 5:16 AM [...] on 2018. Triglycerides 81 <=149 mg/dL [facility] Comment: Interpretive Data Ages < or = [...] on 2018. HDL 26(L) >=40 mg/dL [facility] Comment: Interpretive Data Ages < or = [...] on 2018. LDL, calculated 33 <=129 mg/dL [facility] Comment: Interpretive Data Ages < or [...] revised on 2018. Non-HDL Cholesterol 49 mg/dL [facility] Comment: Interpretive Data Ages < or [...] last revised on 2018. Chol/HDL ratio 3 [facility] Blood 02/15/2023 5:16 AM CDT 02/15/2023 5:57 AM CDT us Marcella Arias MD LAB BLOOD ORDERABLES Final Result [facility] Department [place] [address] * COLONOSCOPY (11/03/2021 12:44 PM FEED PREPARATION OPERATOR) Anatomical Region Laterality Modality Other Narrative Procedure Note rBayden Lerma MD - 11/03/2021 12:44 PM CST [facility] Patient Name: Kobi Salter Procedure Date: 11/03/2021 12:44 PM Date of : 1965 Admit Type: Outpatient Age: 56 Gender: Male Note Status: Finalized Attending MD: Brayden Lerma M.D. Procedure Date: 11/03/2021 Procedure: Colonoscopy Indications: Chronic diarrhea Patient Profile: This is a 56 year old male. Diarrhea. Providers: Brayden Lerma M.D., Teresa Ross CRNA (Anesthesia Staff), Gini Izquierdo RN, Jose A Vuong,It Security Manager Referring MD: Jewels Lamas M.D. Medicines: Monitored [...] bowel preparation was evaluated using the BBPS ([place] Bowel Preparation Scale)with scores of: Right Colon [...] * Hepatitis C antibody (09/20/2020 8:35 PM FEED PREPARATION OPERATOR) Hep C Ab Nonreactive Nonreactive [facility] Comment:Antibodies to HCV no t detected. Does NOT exclude the possibility of recent exposure to HCV. Blood specimen (specimen) 09/20/2020 8:35 PM FEED PREPARATION OPERATOR 09/20/2020 10:17 PM FEED PREPARATION OPERATOR Jasson Teague NP LAB MICROBIOLOGY - GENE RAL ORDERABLES Final Result [facility] Department [place] [address] from Last 3 Months or Most Recently Relevant to Health Maintenance Additional Health Concerns Infection Onset Date Last Indicated MDR gram neg/ESBL 04/16/2023 04/16/2023 C. difficile 04/26/2023 04/26/2023 Insurance [facility] [place] MEDICARE IDPA [facility] Advance Directives For more information, please contact: [phone] Documents on File Type Date Recorded Patient Risk Control Field Representative Expl anation ADVANCE DIRECTIVE 09/25/2020 7:52 AM POWER OF [employer]Y CLEANER [employer] * Full Code (Latest Code Status on [...] 11:56 AM 05/31/2021 12:12 AM Care Teams Optometrist President/Practice Owner Relationship Specialty Start Date End Date No, Physician PCP - General 02/14/23 Frandy Colunga MD Surgeon Vascular Surgery 02/28/21 Alcon Quintanilla DPM Surgeon Podiatry 02/28/21 Theodore Solis MD [address] [place] [address] Consulting Physician Internal Medicine 03/16/23 Raul Lynn IV, MD [address] [place] [id number] Consulting Physician General Surgery 04/30/23
--- OUTSIDE RECORDS SUMMARY | 2025-04-25 07:57 | XMS_ITS ---
Author Organization [facility] [address] Address [address] [place] [address] Care Team Providers Care Application Integrator Name Role Phone Frandy Colunga MD Unavailable [phone] Alcon Quintanilla DPM Unavailable No, Physician Primary Care Provider [phone] Theodore Solis MD Unavailable [phone] Leah MARINO MD, Raul Woodard Unavailable Dialysis [...] 5:16 AM CDT COLONOSCOPY 11/03/2021 12:44 PM EXPORT CLERK HEPATITIS C ANTIBODY Routine 09/20/2020 8:35 PM EXPORT CLERK from Last 3 Months or Most Recently [...] no signs of displacement. Discussed extensively with dramatic director and therapy. We will proceed with [...] GI. I reminded patient has sister and dramatic director at this appointment at [facility] at 1:[address] Bradley. We [...] presented with mental status changes from the [facility] and found to have acute cholecystitis. Likely [...] not show any new fractures. I reminded dramatic director the patient appears to still need appointment made with Orthopedics at [place]. Phone #[phone] Assessment & Plan (03/18/2023 4:48 PM CDT): [...] as pain control with oxycodone. Discussed with dramatic director about getting follow up with Orthopedics [...] status seems to be slowly improving. Reminded dramatic director that patient has on April 23 appointment with Neurosurgery at [facility] at 1:30 p.m. along with the [...] to be clinically improving neurologically. Discussed with dramatic director about getting neurosurgery follow up in [...] 08/08/2021 Assessment & Plan (10/27/2021 3:09 PM EXPORT CLERK): EGD/Colonoscopy scheduled for 11/03/21 Hold aspirin 10/29/21 Assessment & Plan (08/15/2021 1:41 PM EXPORT CLERK): Patient was referred for colonoscopy and has appointment with GI. Abdominal pain has resolved. Assessment & Plan (08/08/2021 12:33 PM EXPORT CLERK): Last colonoscopy 2012 (Unavailable). Recurrent rectal pain and diarrhea. No hemorrhoids. Check CBC. Encounter for surgical after care following surgery of circulatory system 06/16/2021 Chronic diarrhea 06/06/2021 Assessment & Plan (10/03/2021 9:10 AM EXPORT CLERK): Pt was given Lomotil due to diarrhea and now c/o constipation. Resume questran and loperamide when constipation resolved. Assessment & Plan (07/28/2021 12:53 PM EXPORT CLERK): Pt was given Lomotil due to diarrhea and now c/o constipation. Resume questran and loperamide when constipation resolved. Assessment & Plan (07/18/2021 1:25 PM EXPORT CLERK): Continue cholestyramine and loperamide. Assessment & Plan [...] therapy Assessment & Plan (10/03/2021 9:09 AM EXPORT CLERK): Patient's pain is controlled with Vicco Patient needs AKA wound functional level for prosthesis for transfer and ambulation on level surfaces at a fixed candence Assessment & Plan (06/14/2021 2:19 PM CDT): Percocet change to Vicco as patient could not tolerate Assessment & Plan (05/31/2021 1:38 PM CDT): Continue PT/OT. Recurrent major depressive disorder, in remissio n 05/31/2021 Assessment & Plan (03/18/2023 4:46 PM CDT): Cont remeron, stable but fluctuates due to recent hosp stay and illnesses Assessment & Plan (07/28/2021 12:53 PM EXPORT CLERK): Continue Remeron and Zoloft. Assessment & Plan [...] tomorrow. Assessment & Plan (10/03/2021 9:11 AM EXPORT CLERK): Continue Tradjenta and Glargine. Blood sugars have been stable between 70 and 150 Assessment & Plan (09/05/2021 12:27 PM EXPORT CLERK): Continue Tradjenta and Glargine. Check A1c every 90 days. Assessment & Plan (08/01/2021 11:57 AM EXPORT CLERK): Blood glucose 110 - 138 Continue Glargine and Tradjenta Assessment & Plan (07/18/2021 1:24 PM EXPORT CLERK): Continue Tradjenta and glargine insulin. Assessment & [...] ich Assessment & Plan (10/03/2021 9:09 AM EXPORT CLERK): Not on anticoagulation. Continue Metoprolol, Aspirin. Assessment & Plan (08/01/2021 11:54 AM EXPORT CLERK): Not on anticoagulation. Continue Metoprolol, Aspirin. 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 Assessment & Plan (10/27/2021 3:10 PM EXPORT CLERK): Continue hemodialysis weekly. Assessment & Plan (08/07/2021 10:27 AM EXPORT CLERK): Currently on Sevelamer and Ferrous sulfate. Hemodialysis three days weekly. Assessment & Plan (07/14/2021 1:51 PM EXPORT CLERK): Continue Sevelamer and Ferrous sulfate. Assessment & [...] schedule Assessment & Plan (09/21/2020 8:33 AM EXPORT CLERK): - ESRD on dialysis as of August [...] Renvela. Assessment & Plan (09/15/2020 11:00 AM EXPORT CLERK): - Related to increased needs, chronic illness/injury and wounds - Nutrition consulted - Consistent carb diet. Will allow double portions of meat. - Supplements ordered Foot ulcer due to secondary DM 09/13/2020 Assessment & Plan (09/21/2020 8:32 AM EXPORT CLERK): Right foot wounds appeared about 1 month [...] Continue aspirin + Plavix daily Atherosclerosis of seneca artery of right lower extremity 09/06/2020 Overview (09/06/2020): Added automatically from request for surgery [id number] Peripheral arterial disease ([facility]) 09/06/2020 Overview (09/06/2020): Added automatically from request for surgery [id number] Assessment & Plan (03/06/2023 4:14 PM CDT): Continue medical management with statin. 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 Presents now [...] 06/23/2020 Assessment & Plan (09/05/2021 12:26 PM EXPORT CLERK): Continue working with PT/OT. Follow up outpatient for prosthetic. Assessment & Plan (08/15/2021 1:43 PM EXPORT CLERK): Continue PT/OT Continue outpatient follow up for prosthetic on 08/21/21 (2pm), 08/28/21 (11am), and 09/06/21 (11am). Assessment & Plan (08/08/2021 12:35 PM EXPORT CLERK): Seen outpatient for prosthetic yesterday and has follow up again 08/21/21 (2pm), 08/28/21 (11am), and 09/06/21 (11am) Assessment & Plan (08/07/2021 10:29 AM EXPORT CLERK): Denies phanthom limb pain. Pain controlled cyclobenzaprine, Acetaminophen, and Gabapentin. Assessment & Plan (08/01/2021 11:53 AM EXPORT CLERK): Continue Aspirin and Gabapentin. Pain well controlled. Assessment & Plan (07/07/2021 12:45 PM CDT): Follow-up outpatient for prosthesis ([place]) Continue gabapentin, acetaminophen, and physical and occupational therapy as tolerated. Assessment & Plan (06/29/2021 1:45 PM CDT): Patient measured for below-knee licensed clinical psychologist is yesterday and will follow-up for fitting ([place]). Incision well-healed. Continue PT/OT. Continue gabapentin and acetaminophen. Assessment & Plan (06/19/2021 1:55 PM CDT): Patient had follow-up with vascular surgeon. Sutures removed and patient recommended for residual limb licensed clinical psychologist. Pain well controlled. Continue PT/OT Assessment & Plan (06/08/2021 3:02 PM CDT): Patient unable to tolerate oxycodone due to increased confusion. Discussed with MD and will discontinue oxycodone and changed to Vicco to help with postoperative pain. Assessment & [...] and OT Bed will be available [facility] tomorrow Patient was not accepted at [facility] rehab per social services technician Assessment & Plan (06/29/2020 9:55 AM CDT): [...] 05/19/2020 Assessment & Plan (07/14/2021 1:52 PM EXPORT CLERK): Continue Lasix 40 mg daily Assessment & Plan (09/15/2020 10:36 AM EXPORT CLERK): - Echo from 05/2020 LVEF 34% otherwise [...] degree HB on tele w/ very prolonged OR interval and resting bradycardia to mid 50-60s [...] degree HB on tele w/ very prolonged OR interval and resting bradycardia to mid 50-60s [...] degree HB on tele w/ very prolonged OR interval and resting bradycardia to mid 50s, [...] degree HB on tele w/ very prolonged OR interval and resting bradycardia to mid 50s, [...] degree HB on tele w/ very prolonged OR interval, consider restarting - on Entresto 49-51 [...] degree HB on tele w/ very prolonged OR interval, consider restarting - on Entresto 49-51 [...] degree HB on tele w/ very prolonged OR interval. Restart if able. - on Entresto [...] degree HB on tele w/ very prolonged OR interval. Restart if able. - on Entresto [...] Plan (05/19/2020 9:20 AM CDT): - BNP 72708 - Restart home carvedilol - Diuresis 2017 [...] (05/18/2020): Added automatically from request for surgery [id number] Assessment & Plan (06/01/2020 10:34 AM CDT): [...] (05/19/2020): Added automatically from request for surgery [id number] Assessment & Plan (02/28/2023 9:46 AM CDT): [...] eye. Assessment & Plan (09/22/2019 3:29 PM EXPORT CLERK): New cataract evaluation today Mature cataract OS [...] on admission with NSR with severely prolonged OR - as noted above, resuming low dose coreg - telemetry Assessment & Plan (06/29/2020 9:55 AM CDT): History of post-op AF - Not on AC on admission, ECG on admission with NSR with severely prolonged OR - as noted above, resuming low dose coreg - telemetry Assessment & Plan (06/28/2020 10:30 AM CDT): History of post-op AF - Not on AC on admission, ECG on admission with NSR with severely prolonged OR - Holding coreg for now while on dobutamine - telemetry Assessment & Plan (06/27/2020 1:26 PM CDT): History of post-op AF - Not on AC on admission, ECG on admission with NSR with severely prolonged OR - Holding coreg for now while on dobutamine - telemetry Assessment & Plan (06/26/2020 12:02 PM CDT): History of post-op AF - Not on AC on admission, ECG on admission with NSR with severely prolonged OR - Holding coreg for now while on dobutamine - telemetry Assessment & Plan (06/25/2020 2:28 PM CDT): History of post-op AF - Not on AC on admission, ECG on admission with NSR with severely prolonged OR - Holding coreg for now while on dobutamine - telemetry Assessment & Plan (06/24/2020 3:35 PM CDT): History of post-op AF - Not on AC on admission, ECG on admission with NSR with severely prolonged OR - Holding coreg for now while on dobutamine - telemetry Assessment & Plan (06/23/2020 9:22 AM CDT): History of post-op AF - Not on AC on admission, ECG on admission with NSR with severely prolonged OR - Holding coreg for now while on dobutamine - telemetry Assessment & Plan (06/22/2020 12:01 PM CDT): History of post-op AF - Not on AC on admission, ECG on admission with NSR with severely prolonged OR - Holding coreg for now while on dobutamine - telemetry Assessment & Plan (06/21/2020 10:44 AM CDT): History of post-op AF - Not on AC on admission, ECG on admission with NSR with severely prolonged OR - Holding coreg for now while on dobutamine - telemetry Assessment & Plan (06/20/2020 11:49 AM CDT): History of post-op AF - Not on AC on admission, ECG on admission with NSR with severely prolonged OR - Holding coreg for now while on [...] - Pt remains under wound care at [facility]. 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 Sae [...] Isordil Assessment & Plan (09/17/2020 6:52 AM EXPORT CLERK): - VS Q4 hrs - Continue home Lasix, hydralazine, metoprolol, Isordil Assessment & Plan (06/28/2020 10:41 AM CDT): - Elevated blood pressure - continue hydralazine 100 mg tid, isosorbide 40 mg tid - Coreg held with recent VENEER GLUE SPREADER, likely resume low dose tomorrow Assessment & Plan (06/27/2020 1:27 PM CDT): - Elevated blood pressure - continue hydralazine 100 mg tid, isosorbide 40 mg tid - Coreg held with recent VENEER GLUE SPREADER, likely resume tomorrow Assessment & Plan (06/26/2020 12:05 PM CDT): -Elevated blood pressure - continue hydralazine 100 mg tid, isosorbide 40 mg tid -Coreg held while on VENEER GLUE SPREADER Assessment & Plan (06/25/2020 2:31 PM CDT): -Elevated blood pressure - continue hydralazine 100 mg tid, isosorbide 40 mg tid -Coreg held while on VENEER GLUE SPREADER Assessment & Plan (06/24/2020 3:58 PM CDT): -Elevated blood pressure - continue hydralazine 100 mg tid, isosorbide 40 mg tid -Coreg held while on VENEER GLUE SPREADER Assessment & Plan (06/23/2020 10:00 AM CDT): Elevated blood pressure - continue hydralazine 100 mg tid, isosorbide 40 mg tid Off carvedilol while being on dobutamine Continue to monitor Assessment & Plan (05/31/2020 11:11 AM CDT): On home carvedilol, held due to 1st degree HB with prolonged OR interval, borderline HR (56-60) - Start amlodipine 5mg Assessment & Plan (05/30/2020 1:28 PM CDT): On home carvedilol, held due to 1st degree HB with prolonged OR interval, borderline HR (56-60) - Start amlodipine 5mg Assessment & Plan (05/29/2020 10:58 AM CDT): On home carvedilol, held due to 1st degree HB with prolonged OR interval, borderline HR (56-60) - Start amlodipine 5mg Assessment & Plan (05/26/2020 12:36 PM CDT): On home carvedilol, held due to 1st degree HB with prolonged OR interval, borderline HR (56-60) - Start amlodipine [...] week 03/12/2023 How often do you attend [facility] or confucianist services? Never 03/12/2023 Do you belong to any clubs o r organizations such as yarsani groups, unions, fraternal or athletic groups, or [...] place to sleep or slept in a usp (including now)? No 03/12/2023 Personal Safety Answer Date Recorded Have you ever been in or are you currently in a harmful physical or emotional relationship or is someone making you feel afraid or unsafe? Denies 04/16/2023 Sex and Gender Information Value Date Recorded Sex Assigned at Not on file Legal Sex Male 4:17 AM EXPORT CLERK Gender Identity Not on file Sexual Orientation [...] MD LAB BLOOD ORDERABLES Final Result [facility] [address] Department [place] [address] * Hemoglobin A1c (02/15/2023 5:16 AM CDT) Pathologist [facility] Hgb A1C 5.5 4.0 - 5.6 % [facility] Estimated Average Glucose 111 mg/dL [facility] [...] MD LAB BLOOD ORDERABLES Final Result [facility] Department [place] [address] * (ABNORMAL) Lipid panel (02/15/2023 5:16 AM CDT) Cholesterol 75 30 - 199 mg/dL [facility] Comment: Interpretive Data Ages < or [...] revised on 2018. Triglycerides 81 <=149 mg/dL [facility] Comment: Interpretive Data Ages < or [...] on 2018. HDL 26(L) >=40 mg/dL [facility] Comment: Interpretive Data Ages < or [...] 2018. LDL, calculated 33 <=129 mg/dL [facility] Comment: Interpretive Data Ages < or [...] revised on 2018. Non-HDL Cholesterol 49 mg/dL [facility] Comment: Interpretive Data Ages [...] last revised on 2018. Chol/HDL ratio 3 [facility] Blood 02/15/2023 5:16 AM CDT 02/15/2023 5:57 AM CDT us Marcella Arias MD LAB BLOOD ORDERABLES Final Result [facility] Department [place] [address] * COLONOSCOPY (11/03/2021 12:44 PM EXPORT CLERK) Anatomical Region Laterality Modality Other Narrative Procedure Note Brayden Lerma MD - 11/03/2021 12:44 PM CST [facility] Endoscopy Lab Patient Name: Kobi Salter Procedure Date: 11/03/2021 12:44 PM Date of : 1965 Admit Type: Outpatient Age: 56 Gender: Male Note Status: Finalized Attending MD: Brayden Lerma M.D. Procedure Date: 11/03/2021 Procedure: Colonoscopy Indications: Chronic diarrhea Patient Profile: This is a 56 year old male. Diarrhea. Providers: Brayden Lerma M.D., Teresa Ross, SUNGLASS CLIP ATTACHER (Anesthesia Staff), Gini Izquierdo RN, Jose A Vuong,Induction Brazer Referring MD: Jewels Lamas M.D. Medicines: Monitored [...] bowel preparation was evaluated using the BBPS ([place] Bowel Preparation Scale)with scores of: Right Colon [...] * Hepatitis C antibody (09/20/2020 8:35 PM EXPORT CLERK) Hep C Ab Nonreactive Nonreactive [facility] Comment:Antibodies to HCV no t detected. Does NOT exclude the possibility of recent exposure to HCV. Blood specimen (specimen) 09/20/2020 8:35 PM EXPORT CLERK 09/20/2020 10:17 PM EXPORT CLERK us Jasson Teague NP LAB MICROBIOLOGY - GENE RAL ORDERABLES Final Result [facility] Department [place] [address] from Last 3 Months or Most Recently Relevant to Health Maintenance
--- OUTSIDE RECORDS SUMMARY | 2025-04-25 07:57 | XMS_ITS | Clinical Summary ---
Author Organization [facility] Address [address] [place] [address] Care Team Providers Care Geospatial Analyst Name Role Phone Guerita Paulino MD Primary Care Provider [phone] Allergies Active Allergy Reactions Criticality Noted Date [...] often do you attend chur ch or bahai services? Never 07/28/2020 Do you belong to any clubs o r organizations such as judaism groups, unions, fraternal or athletic groups, or [...] medical care, and heating? Somewhat hard 07/28/2020 [facility]at [facility] - Occupational Stress [...] Sex Assigned at Male 07/28/2020 4:01 PM API ARCHITECT Legal Sex Male 4:30 PM CDT Gender Identity Male 07/28/2020 4:01 PM API ARCHITECT Sexual Orientation Straight 07/28/2020 4: 01 PM API ARCHITECT Last Filed Vital Signs Vital Sign Reading Time Taken Comments Blood Pressure 141/56 08/15/2020 11:15 AM API ARCHITECT Pulse 64 08/15/2020 11:15 AM API ARCHITECT Temperature 36.9 C (98.4 F) 08/15/2020 11:15 AM API ARCHITECT Respiratory Rate 18 08/15/2020 11:1 5 AM API ARCHITECT Oxygen Saturation 91% 08/15/2020 11: 15 AM API ARCHITECT Inhaled Oxygen Concentration - - Weight 106.8 kg (235 lb 7.2 oz) 08/15/2020 4:10 AM API ARCHITECT Height 182.9 cm (6') 07/28/2020 8:44 AM API ARCHITECT Body Mass Index 31.93 07/28/2020 8:44 AM API ARCHITECT Plan of Treatment Health Maintenance Due Date Last Done Comments Colorectal Cancer Screening Colonoscopy (10 Years) 1965 Annual Physical 1966 Hepatitis C 1981 DTaP, Tdap and Td Vaccines ( 1 - Tdap) 1982 Pneumococcal Vaccine: 50+ Ye ars (1 of 1 - PCV) 2013 Zoster Vaccines (1 of 2) 2013 COVID-19 Vaccine (1 - 2023-2 5 season) 2024 PHQ-2 (Physician [place]) 09/02/2024 RSV Immunization or 60+ Years (1 [...] this topic Medical Devices Implanted Type Area Manager Hospitality Device Identifier Shelf Expiration Date Model / Serial / Lot Set Cath 23cm 15fr 18ga .038in Polyure Arw Smp Ar - [id number] Implanted:Qty : 1 on 08/12/2020 by Eliecer Oropeza MD at [facility] Catheter Implant N/A: [employer] - [employer] [id number] / / Insurance BILLINGS Advance Directives * Full Code (Latest Code Status on File) Date Activated Date Inactivated Comments 08/12/2020 3:26 PM 08/15/2020 6:39 PM * Full Code Date Activated Date Inactivated Comments 07/28/2020 1:38 PM 08/12/2020 3:26 PM Care Teams Geospatial Analyst Relationship Specialty Start Date End [place] [address] PCP - General INTERNAL MEDICINE 07/28/20
--- OUTSIDE RECORDS SUMMARY | 2025-04-25 07:58 | XMS_ITS | Encounter Summary ---
Author Organization [facility] Address [address] [place] [address] Care Team Providers Care Septic Cleaner Name Role Phone Mariposa Smalls RN Unavailable Warner Sidhu MD PhD Unavailable + Jewels Lamas MD Primary Care Provider [phone] Mariposa Smalls RN Unavailable Frandy Colunga MD Unavailable [phone] Alcon Quintanilla DPM Unavailable [phone] No, Physician Primary Care Provider [phone] Theodore Solis MD Unavailable [phone] Leah MARINO MD, Lyman Lansing Unavailable [phone] Encounter Details Date Type Department Care Team (Late st Contact Info) Description 12/08/2020 Documentation [facility] Case Management [address] [place] [address] Elena Monzon LCSW Social History Tobacco Use [...] declined 06/20/2020 How often do you attend gnosticist or zoroastrianism serv ices? Patient declined 06/20/2020 Do you [...] on file Legal Sex Male 4:17 AM MEASUREMENT SUPERVISOR Gender Identity Not on file Sexual [...] below regarding prior positive on 08/07/20 at [facility]. Spoke to ED team and there are no respiratory concerns at this time. Becka Nation RN 09/13/2020 09/13/2020 04/05/2021 3:05 AM C DT MRSA 11/14/2020 11/18/2020 10/31/2021 4:00 AM MEASUREMENT SUPERVISOR COVID: Suspected 02/13/2021 02/13/2021 02/13/2021 10:13 PM CDT COVID: Suspected 04/22/2021 04/22/2021 04/22/2021 7:17 AM CDT VRE 05/19/2021 05/19/2021 11/15/2021 3:05 AM CDT COVID: Suspected 12/06/2022 12/06/2022 12/06/2022 2:04 PM CDT COVID: Suspected 03/10/2023 03/10/2023 03/10/2023 10:14 AM CDT MRSA 03/11/2023 04/16/2023 10/13/2023 3:05 AM MEASUREMENT SUPERVISOR MDR gram neg/ESBL 04/16/2023 04/16/2023 C. difficile 04/26/2023 04/26/2023 documented as of this encounter Care Teams Septic Cleaner Relationship Specialty Start Date End Date Jewels Lamas MD [address] [address] PCP - General Family Practice 09/06/20 02/13/23 No, Physician PCP - General 02/14/23 Mariposa Smalls RN [address] [address] Farrowing Worker Cardiology 06/30/20 Warner Sidhu MD PhD [address] [address] Liquified Natural Gas Technician Cardiology 06/30/20 03/29/21 Mariposa Smalls, RN [address] [address] Farrowing Worker Cardiology 06/30/20 Frandy Colunga MD [address] [facility] [address] [place] [address] Surgeon Vascular Surgery 02/28/21 Alcon Quintanilla DPM [address] [facility] [address] [place] [address] Surgeon Podiatry 02/28/21 Theodore Solis MD [address] [place] [address] Consulting Physician Internal Medicine 03/16/23 Raul Lynn IV, MD [address] [place] [address] Consulting Physician General Surgery 04/30/23 documented as of this encounter
--- OUTSIDE RECORDS SUMMARY | 2025-04-25 07:58 | XMS_ITS | Encounter Summary ---
Author Organization [facility] Address [address] [place] [address] Phone Care Team Providers Care Ring Spinner Name Role Phone Avery Tay MD Primary Care Provider [phone] No, Physician Primary Care Provider [phone] Avery Tay MD Primary Care Provider [phone] Mariposa Smalls RN Unavailable Warner Sidhu MD PhD Unavailable + Jewels Lamas MD Primary Care Provider + [phone] Mariposa Smalls RN Unavailable Frandy Colunga MD Unavailable [phone] Alcon Quintanilla DPM Unavailable [phone] No, Physician Primary Care Provider [phone] Theodore Solis MD Unavailable [phone] Leah MARINO MD, Raul Woodard Unavailable + [phone] Encounter Details Date Type Department Care Team (Latest Contact Info) Description 09/06/2017 Orders Only [facility] CONVERSION Scanning, Provider Social History Tobacco Use Types Packs/Day Years Used Date Smoking Tobacco: Never Assessed Sex and Gender Information Value Date Recorded Sex Assigned at Not on file Legal 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[employer] Gender Identity Not on file Sexual Orientation Not on file documented as of this encounter Plan of Treatment Not on file documented as of this encounter Procedures Procedure Name Priority Date/Time Associated Diagnosis Comments VASCULAR LABORATORY REPORT 09/12/2017 3:49 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 VASCULAR LABORATORY REPORT 09/06/2017 2:11 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 VASCULAR LABORATORY REPORT 09/06/2017 1:55 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 documented in this encounter Results * VASCULAR LABORATORY REPORT (09/12/2017 3:49 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) Anatomical Region Laterality Modality Ultrasound us Provider Scanning CV VASCULAR PROCEDURES Final R esult * VASCULAR LABORATORY REPORT (09/06/2017 2:11 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) Anatomical Region Laterality Modality Ultrasound us Provider Scanning CV VASCULAR PROCEDURES Final R esult * VASCULAR LABORATORY REPORT (09/06/2017 1:55 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) Anatomical Region Laterality Modality Ultrasound us Provider [...] was positive for COVID19 on 08/07/20 at [facility]; lab in Care Everywhere. There are no present respiratory concerns for this admission. Patient presents for wound assessment and management. Pt meets Recovered criteria. 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 Spoke to ED team and there are no respiratory concerns at this time. 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 difficile 04/26/2023 04/26/2023 documented as of this encounter Care Teams Ring Spinner Relationship Specialty Start Date End Date Avery Tay MD [address] [place] [address] [place] [address] PCP - General 05/31/17 11/15/19 No, Physician PCP - General 11/16/19 02/23/20 Avery Tay MD [address] [place] [address] PCP - General 02/24/20 09/05/20 Jewels Lamas MD [address] [address] PCP - General Family Practice 09/06/20 02/13/23 No, Physician PCP - General 02/14/23 Mariposa Smalls, NOEMI [address] [address] Operations Tech Cardiology 06/30/20 Warner Sidhu MD PhD [address] [address] [employer] Laborer Cardiology 06/30/20 03/29/21 Mariposa Smalls, RN [address] [address] Operations Tech Cardiology 06/30/20 Frandy Colunga MD [address] [address] Surgeon Vascular Surgery 02/28/21 Alcon Quintanilla DPM [address] [address] Surgeon Podiatry 02/28/21 Theodore Solis MD [address] [place] [id number] Consulting Physician Internal Medicine 03/16/23 Raul Lynn IV, MD [address] [place] [id number] Consulting Physician General Surgery 04/30/23 documented as of this encounter
--- OUTSIDE RECORDS SUMMARY | 2025-04-25 07:59 | XMS_ITS ---
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 Ordering Clinician Indication Dosage Frequency Signature (SIG) Comments Components Mircera 03-21 15:38: 48 Yes [id number] Number of Repeats Allowed: Frequency: GITA dosing, every two weeks Venofer 2023-09- 19:47: 13 Yes [id number] Number of Repeats Allowed: Frequency: One time a weekDosesO rdered: Maintenanc e Dose 50 Milligram Route: Intravenou s heparin sodium, porcine 03-19 05:00: 00 Yes [id number] Number of Repeats Allowed: Frequency: Every Dialysis TreatmentD osesOrdere d: Hourly Dose 500 Units/Hr 1:1000 Units/mLRo nelson: Intravenou s heparin sodium, porcine 2022-0908 14:15: 46 Yes [id number] Number of Repeats Allowed: Frequency: Every Dialysis TreatmentD osesOrdere d: Loading Dose 1000 Units 1:1000 Units/mLRo nelson: Intravenou s ONS [facility] 9-12 17:01: 42 Yes [id number] Number of Repeats Allowed: Frequency: Every Dialysis Treatment Oxygen 8-30 14:46: 15 Yes [id number] Number of Repeats Allowed: Frequency: As needed ondansetron hydrochlori de 05-01 14:46: 06 Yes [id number] Number of Repeats Allowed: Frequency: Every 4 hours as needed Normal Saline Solution 0.9% NaCl 05-01 14:45: 56 Yes [id number] Number of Repeats Allowed: Frequency: As needed EpiPen 2-Candido 05-01 14:45: 48 Yes [id number] Number of Repeats Allowed: Frequency: Every 4 hours as needed diphenhydra mine hydrochlori de 05-01 14:45: 39 Yes [id number] Number of Repeats Allowed: Frequency: Every 4 hours as needed diphenhydra mine hydrochlori de 05-01 14:45: 24 Yes [id number] Number of Repeats Allowed: Frequency: Every 4 hours as needed clonidine 05-01 14:45: 13 Yes [id number] Number of Repeats Allowed: Frequency: Every 4 hours as needed acetaminoph en 05-01 14:45: 01 Yes [id number] Number of Repeats Allowed: Frequency: Every 4 [...] Gain BFR DFR Actual UF Dialysis Access Augus t 2024 In-Ce nter Hemod ialys is Treat ment 2025-04-23 T14:58:25. 000Z 2025-04-23 T18:28:50. 000Z BP Sitting (Pre-Dialysis) 134/56 mmHg BP Sitting (Post-D ialysis ) 129/ 69 mmHg Sitting Heart Rate Pre-Dialysis 53 BPM Sitting H eart Rate Post-Dialysis 46 BPM Temperature Pre-Dialysis 98 degF Temperature Post -Dialysis 97.2 degF April 21, 2025 In-Center Hemodialysis Treatment 5118-49-42N39:09:53.000Z 3391-55-86A39:48:13.000Z BP Sitting (Pre-Dialysis) 139/63 mmHg BP Sitting (Post-Dialysis) 132/55 mmHg Concurrent Access: falseAV Fistula Upper Arm (Right) Arterial Sitting Heart Rate Pre-Dialysis 57 BPM Sitting H eart Rate Post-Dialysis 61 BPM Temperature Pre-Dialysis 97.7 degF Temperature Post -Dialysis 97.3 degF April 19, 2025 In-Center Hemodialysis Treatment 7968-28-57U86:06:55.000Z 0515-59-44H25:41:05.000Z BP Sitting (Pre-Dialysis) 91/48 mmHg BP Sitting (Post-Dialysis) 102/46 mmHg Concurrent Access: falseAV Fistula Upper Arm (Right) Arterial Sitting Heart Rate Pre-Dialysis 48 BPM Sitting H eart Rate Post-Dialysis 47 BPM Temperature Pre-Dialysis 97.1 degF Temperature Post -Dialysis 97.5 degF April 16, 2025 In-Center Hemodialysis Treatment 5452-00-18T95:16:23.000Z 6377-90-42C46:46:23.000Z BP Sitting (Pre-Dialysis) 119/51 mmHg BP Sitting (Post-Dialysis) 141/51 mmHg Concurrent Access: falseAV Fistula Upper Arm (Right) Arterial Sitting Heart Rate Pre-Dialysis 52 BPM Sitting H eart Rate Post-Dialysis 52 BPM Temperature Pre-Dialysis 97.9 degF Temperature Post -Dialysis 97.1 degF April 14, 2025 In-Center Hemodialysis Treatment 5663-34-64H27:47:35.000Z 9745-47-03U33:19:15.000Z BP Sitting (Pre-Dialysis) 128/60 mmHg BP Sitting (Post-Dialysis) 133/61 mmHg Concurrent Access: falseAV Fistula Upper Arm (Right) Arterial Sitting Heart Rate Pre-Dialysis 56 BPM Sitting H eart Rate Post-Dialysis 49 BPM Temperature Pre-Dialysis 98.1 degF Temperature Post -Dialysis 97.6 degF April 12, 2025 In-Center Hemodialysis Treatment 1611-47-82K54:16:10.000Z 5127-50-67L03:46:35.000Z BP Sitting (Pre-Dialysis) 151/62 mmHg BP Sitting (Post-Dialysis) 113/55 mmHg Concurrent Access: falseAV Fistula Upper Arm (Right) Arterial Sitting Heart Rate Pre-Dialysis 49 BPM Sitting H eart Rate Post-Dialysis 55 BPM Temperature Pre-Dialysis 98 degF Temperature Post -Dialysis 97.7 degF April 10, 2025 In-Center Hemodialysis Treatment 8046-27-91R53:25:00.000Z 6947-15-84I24:45:24.000Z BP Sitting (Pre-Dialysis) 125/54 mmHg BP Sitting (Post-Dialysis) 120/62 mmHg Concurrent Access: falseAV Fistula Upper Arm (Right) Arterial Sitting Heart Rate Pre-Dialysis 57 BPM Sitting H eart Rate Post-Dialysis 59 BPM Temperature Pre-Dialysis 97.2 degF Temperature Post -Dialysis 98.2 degF April 07, 2025 In-Center Hemodialysis Treatment 4958-87-66M56:29:37.000Z 3024-11-78Y11:43:30.000Z BP Sitting (Pre-Dialysis) 144/68 mmHg BP Sitting (Post-Dialysis) 129/63 mmHg Concurrent Access: falseAV Fistula Upper Arm (Right) Arterial Sitting Heart Rate Pre-Dialysis 63 BPM Sitting H eart Rate Post-Dialysis 61 BPM Temperature Pre-Dialysis 98 degF Temperature Post -Dialysis 97.8 degF April 05, 2025 In-Center Hemodialysis Treatment 4723-11-02J31:30:50.000Z 5036-60-56O78:48:20.000Z BP Sitting (Pre-Dialysis) 110/55 mmHg BP Sitting (Post-Dialysis) 126/53 mmHg Concurrent Access: falseAV Fistula Upper Arm (Right) Arterial Sitting Heart Rate Pre-Dialysis 50 BPM Sitting H eart Rate Post-Dialysis 44 BPM Temperature Pre-Dialysis 97.6 degF Temperature Post -Dialysis 97.4 degF April 02, 2025 In-Center Hemodialysis Treatment 0291-15-67V64:13:00.000Z 6036-54-21T00:47:30.000Z BP Sitting (Pre-Dialysis) 117/58 mmHg BP Sitting (Post-Dialysis) 116/44 mmHg Concurrent Access: falseAV Fistula Upper Arm (Right) Arterial Sitting Heart Rate Pre-Dialysis 42 BPM Sitting H eart Rate Post-Dialysis 55 BPM Temperature Pre-Dialysis 97.1 degF Temperature Post -Dialysis 97.4 degF March 31, 2025 In-Center Hemodialysis Treatment 7904-18-29V38:47:34.000Z 0306-71-78P99:45:04.000Z BP Sitting (Pre-Dialysis) 117/60 mmHg BP Sitting (Post-Dialysis) 121/55 mmHg Concurrent Access: falseAV Fistula Upper Arm (Right) Arterial Sitting Heart Rate Pre-Dialysis 58 BPM Sitting H eart Rate Post-Dialysis 47 BPM Temperature Pre-Dialysis 97.7 degF Temperature Post -Dialysis 98.1 degF March 29, 2025 In-Center Hemodialysis Treatment 2918-97-52U46:13:00.000Z 3946-22-43O42:46:34.000Z BP Sitting (Pre-Dialysis) 118/59 mmHg BP Sitting (Post-Dialysis) 114/54 mmHg Concurrent Access: falseAV Fistula Upper Arm (Right) Arterial Sitting Heart Rate Pre-Dialysis 56 BPM Sitting H eart Rate Post-Dialysis 50 BPM Temperature Pre-Dialysis 97.8 degF Temperature Post -Dialysis 97.8 degF March 26, 2025 In-Center Hemodialysis Treatment 3030-91-93H43:00:00.000Z 9276-64-24Q68:24:22.000Z BP Sitting (Pre-Dialysis) 119/59 mmHg BP Sitting (Post-Dialysis) 113/50 mmHg Concurrent Access: falseAV Fistula Upper Arm (Right) Arterial Sitting Heart Rate Pre-Dialysis 75 BPM Sitting H eart Rate Post-Dialysis 42 BPM Temperature Pre-Dialysis 98 degF Temperature Post -Dialysis 97.4 degF March 24, 2025 In-Center Hemodialysis Treatment 3328-32-55O74:13:17.000Z 5514-73-70Y44:43:42.000Z BP Sitting (Pre-Dialysis) 112/60 mmHg BP Sitting (Post-Dialysis) 104/54 mmHg Concurrent Access: falseAV Fistula Upper Arm (Right) Arterial Sitting Heart Rate Pre-Dialysis 64 BPM Sitting H eart Rate Post-Dialysis 46 BPM Temperature Pre-Dialysis 97.9 degF Temperature Post -Dialysis 97.6 degF March 22, 2025 In-Center Hemodialysis Treatment 9259-42-09O85:46:40.000Z 9350-51-50A33:46:40.000Z BP Sitting (Pre-Dialysis) 93/42 mmHg BP Sitting (Post-Dialysis) 100/47 mmHg Concurrent Access: falseAV Fistula Upper Arm (Right) Arterial Sitting Heart Rate Pre-Dialysis 53 BPM Sitting H eart Rate Post-Dialysis 42 BPM Temperature Pre-Dialysis 97.6 degF Temperature Post -Dialysis 97.4 degF March 19, 2025 In-Center Hemodialysis Treatment 3557-47-83Y17:54:54.000Z 5651-91-85I32:24:29.000Z BP Sitting (Pre-Dialysis) 94/47 mmHg BP Sitting (Post-Dialysis) 124/59 mmHg Concurrent Access: falseAV Fistula Upper Arm (Right) Arterial Sitting Heart Rate Pre-Dialysis 55 BPM Sitting H eart Rate Post-Dialysis 60 BPM Temperature Pre-Dialysis 98.2 degF Temperature Post -Dialysis 98.2 degF March 03, 2025 In-Center Hemodialysis Treatment 7749-07-79C17:19:31.000Z 8157-88-89V34:49:31.000Z BP Sitting (Pre-Dialysis) 126/57 mmHg BP Sitting (Post-Dialysis) 134/55 mmHg Concurrent Access: falseAV Fistula Upper Arm (Right) Arterial Sitting Heart Rate Pre-Dialysis 50 BPM Sitting H eart Rate Post-Dialysis 49 BPM Temperature Pre-Dialysis 97.7 degF Temperature Post -Dialysis 96.5 degF March 01, 2025 In-Center Hemodialysis Treatment 8149-69-29W10:14:10.000Z 7810-91-94L77:44:10.000Z BP Sitting (Pre-Dialysis) 164/67 mmHg BP Sitting (Post-Dialysis) 136/86 mmHg Concurrent Access: falseAV Fistula Upper Arm (Right) Arterial Sitting Heart Rate Pre-Dialysis 53 BPM Sitting H eart Rate Post-Dialysis 55 BPM Temperature Pre-Dialysis 97.8 degF Temperature Post -Dialysis 96.9 degF February 26, 2025 In-Center Hemodialysis Treatment 0571-53-13N22:15:19.000Z 2079-35-83J34:44:04.000Z BP Sitting (Pre-Dialysis) 139/86 mmHg BP Sitting (Post-Dialysis) 134/76 mmHg Concurrent Access: falseAV Fistula Upper Arm (Right) Arterial Sitting Heart Rate Pre-Dialysis 77 BPM Sitting H eart Rate Post-Dialysis 56 BPM Temperature Pre-Dialysis 98.3 degF Temperature Post -Dialysis 97.6 degF February 24, 2025 In-Center Hemodialysis Treatment 0719-68-09T18:07:00.000Z 4830-91-59Q72:13:34.000Z BP Sitting (Pre-Dialysis) 149/70 mmHg BP Sitting (Post-Dialysis) 145/66 mmHg Concurrent Access: falseAV Fistula Upper Arm (Right) Arterial Sitting Heart Rate Pre-Dialysis 57 BPM Sitting H eart Rate Post-Dialysis 66 BPM Temperature Pre-Dialysis 98.1 degF Temperature Post -Dialysis 98 degF February 22, 2025 In-Center Hemodialysis Treatment 7854-73-23O82:14:00.000Z 1387-63-93R92:44:00.000Z BP Sitting (Pre-Dialysis) 131/63 mmHg BP Sitting (Post-Dialysis) 120/60 mmHg Concurrent Access: falseAV Fistula Upper Arm (Right) Arterial Sitting Heart Rate Pre-Dialysis 64 BPM Sitting H eart Rate Post-Dialysis 60 BPM Temperature Pre-Dialysis 97.8 degF Temperature Post -Dialysis 97.9 degF February 19, 2025 In-Center Hemodialysis Treatment 1681-32-22E10:51:00.000Z 7291-59-77N84:23:37.000Z BP Sitting (Pre-Dialysis) 161/72 mmHg BP Sitting (Post-Dialysis) 145/57 mmHg Concurrent Access: falseAV Fistula Upper Arm (Right) Arterial Sitting Heart Rate Pre-Dialysis 51 BPM Sitting H eart Rate Post-Dialysis 58 BPM Temperature Pre-Dialysis 98.1 degF Temperature Post -Dialysis 98 degF February 15, 2025 In-Center Hemodialysis Treatment 5882-38-06U10:16:00.000Z 2808-26-81E11:49:46.000Z BP Sitting (Pre-Dialysis) 139/57 mmHg BP Sitting (Post-Dialysis) 141/54 mmHg Concurrent Access: falseAV Fistula Upper Arm (Right) Arterial Sitting Heart Rate Pre-Dialysis 49 BPM Sitting H eart Rate Post-Dialysis 57 BPM Temperature Pre-Dialysis 97.4 degF Temperature Post -Dialysis 98 degF February 12, 2025 In-Center Hemodialysis Treatment 7700-68-93G98:49:00.000Z 2098-67-85F04:53:40.000Z BP Sitting (Pre-Dialysis) 132/55 mmHg BP Sitting (Post-Dialysis) 139/71 mmHg Concurrent Access: falseAV Fistula Upper Arm (Right) Arterial Sitting Heart Rate Pre-Dialysis 50 BPM Sitting H eart Rate Post-Dialysis 50 BPM Temperature Pre-Dialysis 97.8 degF Temperature Post -Dialysis 97.3 degF February 10, 2025 In-Center Hemodialysis Treatment 6425-11-96V00:23:20.000Z 7094-22-51S93:53:45.000Z BP Sitting (Pre-Dialysis) 129/61 mmHg BP Sitting (Post-Dialysis) 123/55 mmHg Concurrent Access: falseAV Fistula Upper Arm (Right) Arterial Sitting Heart Rate Pre-Dialysis 49 BPM Sitting H eart Rate Post-Dialysis 45 BPM Temperature Pre-Dialysis 97.5 degF Temperature Post -Dialysis 97.3 degF February 08, 2025 In-Center Hemodialysis Treatment 2209-74-76Z90:58:00.000Z 7431-54-22Z87:10:49.000Z BP Sitting (Pre-Dialysis) 131/59 mmHg BP Sitting (Post-Dialysis) 136/61 mmHg Concurrent Access: falseAV Fistula Upper Arm (Right) Arterial Sitting Heart Rate Pre-Dialysis 57 BPM Sitting H eart Rate Post-Dialysis 54 BPM Temperature Pre-Dialysis 97.2 degF Temperature Post -Dialysis 97.7 degF February 05, 2025 In-Center Hemodialysis Treatment 8677-55-00B73:38:00.000Z 6808-53-17S62:43:21.000Z BP Sitting (Pre-Dialysis) 106/45 mmHg BP Sitting (Post-Dialysis) 126/56 mmHg Concurrent Access: falseAV Fistula Upper Arm (Right) Arterial Sitting Heart Rate Pre-Dialysis 44 BPM Sitting H eart Rate Post-Dialysis 47 BPM Temperature Pre-Dialysis 97.3 degF Temperature Post -Dialysis 98 degF February 03, 2025 In-Center Hemodialysis Treatment 9835-96-27F05:26:27.000Z 0407-56-92J00:56:27.000Z BP Sitting (Pre-Dialysis) 133/62 mmHg BP Sitting (Post-Dialysis) 121/64 mmHg Concurrent Access: falseAV Fistula Upper Arm (Right) Arterial Sitting Heart Rate Pre-Dialysis 51 BPM Sitting H eart Rate Post-Dialysis 59 BPM Temperature Pre-Dialysis 97.7 degF Temperature Post -Dialysis 98 degF February 01, 2025 In-Center Hemodialysis Treatment 0260-20-07T02:09:52.000Z 1949-96-17V89:39:52.000Z BP Sitting (Pre-Dialysis) 168/64 mmHg BP Sitting (Post-Dialysis) 157/82 mmHg Concurrent Access: falseAV Fistula Upper Arm (Right) Arterial Sitting Heart Rate Pre-Dialysis 66 BPM Sitting H eart Rate Post-Dialysis 71 BPM Temperature Pre-Dialysis 98 degF Temperature Post -Dialysis 97.7 degF January 29, 2025 In-Center Hemodialysis Treatment 6309-14-29B52:24:56.000Z 0550-62-72A32:47:51.000Z BP Sitting (Pre-Dialysis) 134/63 mmHg BP Sitting (Post-Dialysis) 137/63 mmHg Concurrent Access: falseAV Fistula Upper Arm (Right) Arterial Sitting Heart Rate Pre-Dialysis 51 BPM Sitting H eart Rate Post-Dialysis 49 BPM Temperature Pre-Dialysis 97.7 degF Temperature Post -Dialysis 97.2 degF January 27, 2025 In-Center Hemodialysis Treatment 4933-08-68B49:06:10.000Z 7822-61-07Z18:36:35.000Z BP Sitting (Pre-Dialysis) 145/63 mmHg BP Sitting (Post-Dialysis) 170/113 mmHg Concurrent Access: falseAV Fistula Upper Arm (Right) Arterial Sitting Heart Rate Pre-Dialysis 50 BPM Sitting H eart Rate Post-Dialysis 65 BPM Temperature Pre-Dialysis 98 degF Temperature Post -Dialysis 97.6 degF January 25, 2025 In-Center Hemodialysis Treatment 1283-39-25N22:15:00.000Z 2384-89-39P19:45:28.000Z BP Sitting (Pre-Dialysis) 150/64 mmHg BP Sitting (Post-Dialysis) 144/64 mmHg Concurrent Access: falseAV Fistula Upper Arm (Right) Arterial Sitting Heart Rate Pre-Dialysis 54 BPM Sitting H eart Rate Post-Dialysis 55 BPM Temperature Pre-Dialysis 98.2 degF Temperature Post -Dialysis 97.7 degF January 22, 2025 In-Center Hemodialysis Treatment 5145-71-21I70:42:00.000Z 5929-89-71D81:43:33.000Z BP Sitting (Pre-Dialysis) 165/69 mmHg BP Sitting (Post-Dialysis) 143/76 mmHg Concurrent Access: falseAV Fistula Upper Arm (Right) Arterial Sitting Heart Rate Pre-Dialysis 56 BPM Sitting H eart Rate Post-Dialysis 48 BPM Temperature Pre-Dialysis 98 degF Temperature Post -Dialysis 96.8 degF January 20, 2025 In-Center Hemodialysis Treatment 400 mL/min 800 mL/min Concurrent Access: false January 18, 2025 In-Center Hemodialysis Treatment 20 25 -0 5- 19 T1 5: 25 :5 4. 00 0Z 20 25 -0 5- 19 T1 8: 43 :4 9. 00 0Z BP Sitting (Pre-Dial ysis) 154/75 mmHg BP Sitting (Post-Rosa lysis) 142/81 mmHg Concurrent Access: falseAV Fistula Upper Arm (Right) Arterial Sitting Heart Rate Pre-Dialysis 59 BPM Sitting H eart Rate Post-Dialysis 60 BPM Temperature Pre-Dialysis 97.5 degF Temperature Post -Dialysis 97.9 degF January 15, 2025 In-Center Hemodialysis Treatment 8530-47-30P74:23:06.000Z 1600-40-57Q99:47:41.000Z BP Sitting (Pre-Dialysis) 128/57 mmHg BP Sitting (Post-Dialysis) 156/61 mmHg Concurrent Access: falseAV Fistula Upper Arm (Right) Arterial Sitting Heart Rate Pre-Dialysis 39 BPM Sitting H eart Rate Post-Dialysis 50 BPM Temperature Pre-Dialysis 98 degF Temperature Post -Dialysis 97.4 degF January 13, 2025 In-Center Hemodialysis Treatment 7237-00-96Q02:01:26.000Z 9859-81-60Z12:31:01.000Z BP Sitting (Pre-Dialysis) 138/64 mmHg BP Sitting (Post-Dialysis) 146/60 mmHg Concurrent Access: falseAV Fistula Upper Arm (Right) Arterial Sitting Heart Rate Pre-Dialysis 51 BPM Sitting H eart Rate Post-Dialysis 46 BPM Temperature Pre-Dialysis 97.7 degF Temperature Post -Dialysis 97.3 degF January 11, 2025 In-Center Hemodialysis Treatment 9458-80-94T97:03:45.000Z 6861-43-80B95:35:00.000Z BP Sitting (Pre-Dialysis) 150/64 mmHg BP Sitting (Post-Dialysis) 142/53 mmHg Concurrent Access: falseAV Fistula Upper Arm (Right) Arterial Sitting Heart Rate Pre-Dialysis 43 BPM Sitting H eart Rate Post-Dialysis 51 BPM Temperature Pre-Dialysis 97.8 degF Temperature Post -Dialysis 97.1 degF January 08, 2025 In-Center Hemodialysis Treatment 1238-42-06T87:57:00.000Z 0947-69-61P04:30:05.000Z BP Sitting (Pre-Dialysis) 145/69 mmHg BP Sitting (Post-Dialysis) 139/68 mmHg Concurrent Access: falseAV Fistula Upper Arm (Right) Arterial Sitting Heart Rate Pre-Dialysis 49 BPM Sitting H eart Rate Post-Dialysis 55 BPM Temperature Pre-Dialysis 97.3 degF Temperature Post -Dialysis 98 degF January 06, 2025 In-Center Hemodialysis Treatment 2836-55-97O43:40:49.000Z 6196-60-58O51:41:14.000Z BP Sitting (Pre-Dialysis) 139/64 mmHg BP Sitting (Post-Dialysis) 132/57 mmHg Concurrent Access: falseAV Fistula Upper Arm (Right) Arterial Sitting Heart Rate Pre-Dialysis 49 BPM Sitting H eart Rate Post-Dialysis 50 BPM Temperature Pre-Dialysis 97.3 degF Temperature Post -Dialysis 97.3 degF January 04, 2025 In-Center Hemodialysis Treatment 1324-96-10Y56:15:00.000Z 0205-54-30T12:55:07.000Z BP Sitting (Pre-Dialysis) 124/59 mmHg BP Sitting (Post-Dialysis) 121/56 mmHg Concurrent Access: falseAV Fistula Upper Arm (Right) Arterial Sitting Heart Rate Pre-Dialysis 53 BPM Sitting H eart Rate Post-Dialysis 59 BPM Temperature Pre-Dialysis 97.8 degF Temperature Post -Dialysis 98 degF January 01, 2025 In-Center Hemodialysis Treatment 5723-68-04G97:20:00.000Z 6140-98-86J77:49:53.000Z BP Sitting (Pre-Dialysis) 145/55 mmHg BP Sitting (Post-Dialysis) 123/57 mmHg Concurrent Access: falseAV Fistula Upper Arm (Right) Arterial Sitting Heart Rate Pre-Dialysis 50 BPM Sitting H eart Rate Post-Dialysis 73 BPM Temperature Pre-Dialysis 98 degF Temperature Post -Dialysis 98 degF December 28, 2024 In-Center Hemodialysis Treatment 5394-52-49W34:04:01.000Z 8303-80-79L71:47:21.000Z BP Sitting (Pre-Dialysis) 133/60 mmHg BP Sitting (Post-Dialysis) 128/52 mmHg Concurrent Access: falseAV Fistula Upper Arm (Right) Arterial Sitting Heart Rate Pre-Dialysis 44 BPM Sitting H eart Rate Post-Dialysis 57 BPM Temperature Pre-Dialysis 97.3 degF December 25, 2024 In-Center Hemodialysis Treatment 2546-08-12V36:32:16.000Z 4009-75-05A70:58:56.000Z BP Sitting (Pre-Dialysis) 159/69 mmHg BP Sitting (Post-Dialysis) 149/68 mmHg Concurrent Access: falseAV Fistula Upper Arm (Right) Arterial Sitting Heart Rate Pre-Dialysis 52 BPM Sitting H eart Rate Post-Dialysis 58 BPM Temperature Pre-Dialysis 98.1 degF Temperature Post -Dialysis 97.3 degF December 23, 2024 In-Center Hemodialysis Treatment 4836-00-26N50:23:00.000Z 0708-16-48P16:53:50.000Z BP Sitting (Pre-Dialysis) 115/55 mmHg BP Sitting (Post-Dialysis) 110/47 mmHg Concurrent Access: falseAV Fistula Upper Arm (Right) Arterial Sitting Heart Rate Pre-Dialysis 43 BPM Sitting H eart Rate Post-Dialysis 44 BPM Temperature Pre-Dialysis 97.9 degF Temperature Post -Dialysis 98.3 degF December 21, 2024 In-Center Hemodialysis Treatment 9944-99-20V27:25:55.000Z 9821-21-70P22:25:30.000Z BP Sitting (Pre-Dialysis) 135/54 mmHg BP Sitting (Post-Dialysis) 126/53 mmHg Concurrent Access: falseAV Fistula Upper Arm (Right) Arterial Sitting Heart Rate Pre-Dialysis 40 BPM Sitting H eart Rate Post-Dialysis 46 BPM Temperature Pre-Dialysis 97.2 degF Temperature Post -Dialysis 98.1 degF December 18, 2024 In-Center Hemodialysis Treatment 3302-91-68L21:29:45.000Z 8690-05-14B10:47:40.000Z BP Sitting (Pre-Dialysis) 152/64 mmHg BP Sitting (Post-Dialysis) 140/76 mmHg Concurrent Access: falseAV Fistula Upper Arm (Right) Arterial Sitting Heart Rate Pre-Dialysis 45 BPM Sitting H eart Rate Post-Dialysis 50 BPM Temperature Pre-Dialysis 98 degF Temperature Post -Dialysis 98 degF December 16, 2024 In-Center Hemodialysis Treatment 3297-27-31E89:14:18.000Z 3675-19-54F80:45:08.000Z BP Sitting (Pre-Dialysis) 140/56 mmHg BP Sitting (Post-Dialysis) 130/53 mmHg Concurrent Access: falseAV Fistula Upper Arm (Right) Arterial Sitting Heart Rate Pre-Dialysis 47 BPM Sitting H eart Rate Post-Dialysis 54 BPM Temperature Pre-Dialysis 97 degF Temperature Post -Dialysis 98.3 degF December 14, 2024 In-Center Hemodialysis Treatment 5743-03-59R89:19:15.000Z 9851-88-54Y76:46:20.000Z BP Sitting (Pre-Dialysis) 126/63 mmHg BP Sitting (Post-Dialysis) 142/58 mmHg Concurrent Access: falseAV Fistula Upper Arm (Right) Arterial Sitting Heart Rate Pre-Dialysis 48 BPM Sitting H eart Rate Post-Dialysis 46 BPM Temperature Pre-Dialysis 97.2 degF Temperature Post -Dialysis 98.2 degF December 11, 2024 In-Center Hemodialysis Treatment 8753-16-26J28:09:51.000Z 3725-17-99Z72:39:51.000Z BP Sitting (Pre-Dialysis) 156/64 mmHg BP Sitting (Post-Dialysis) 137/60 mmHg Concurrent Access: falseAV Fistula Upper Arm (Right) Arterial Sitting Heart Rate Pre-Dialysis 50 BPM Sitting H eart Rate Post-Dialysis 64 BPM Temperature Pre-Dialysis 98 degF Temperature Post -Dialysis 97.7 degF December 09, 2024 In-Center Hemodialysis Treatment 8333-17-13F62:32:20.000Z 2290-55-79K51:06:05.000Z BP Sitting (Pre-Dialysis) 124/52 mmHg BP Sitting (Post-Dialysis) 122/55 mmHg Concurrent Access: falseAV Fistula Upper Arm (Right) Arterial Sitting Heart Rate Pre-Dialysis 59 BPM Sitting H eart Rate Post-Dialysis 53 BPM Temperature Pre-Dialysis 97.6 degF Temperature Post -Dialysis 98 degF December 07, 2024 In-Center Hemodialysis Treatment 5792-32-91S61:07:00.000Z 0696-76-70O78:43:43.000Z BP Sitting (Pre-Dialysis) 143/70 mmHg BP Sitting (Post-Dialysis) 109/52 mmHg Concurrent Access: falseAV Fistula Upper Arm (Right) Arterial Sitting Heart Rate Pre-Dialysis 60 BPM Sitting H eart Rate Post-Dialysis 53 BPM Temperature Pre-Dialysis 97.1 degF Temperature Post -Dialysis 97.8 degF December 04, 2024 In-Center Hemodialysis Treatment 4339-37-15E90:10:00.000Z 8758-90-68V59:51:10.000Z BP Sitting (Pre-Dialysis) 142/54 mmHg BP Sitting (Post-Dialysis) 112/52 mmHg Concurrent Access: falseAV Fistula Upper Arm (Right) Arterial Sitting Heart Rate Pre-Dialysis 50 BPM Sitting H eart Rate Post-Dialysis 62 BPM Temperature Pre-Dialysis 97.8 degF Temperature Post -Dialysis 98 degF December 02, 2024 In-Center Hemodialysis Treatment 3227-22-18X16:11:16.000Z 5509-99-55C30:15:26.000Z BP Sitting (Pre-Dialysis) 119/63 mmHg BP Sitting (Post-Dialysis) 109/50 mmHg Concurrent Access: falseAV Fistula Upper Arm (Right) Arterial Sitting Heart Rate Pre-Dialysis 48 BPM Sitting H eart Rate Post-Dialysis 55 BPM Temperature Pre-Dialysis 97.3 degF Temperature Post -Dialysis 97.2 degF November 30, 2024 In-Center Hemodialysis Treatment 2802-26-47D58:05:21.000Z 9950-85-36W90:44:06.000Z BP Sitting (Pre-Dialysis) 145/61 mmHg BP Sitting (Post-Dialysis) 126/57 mmHg Concurrent Access: falseAV Fistula Upper Arm (Right) Arterial Sitting Heart Rate Pre-Dialysis 67 BPM Sitting H eart Rate Post-Dialysis 56 BPM Temperature Pre-Dialysis 97.1 degF Temperature Post -Dialysis 96.5 degF November 27, 2024 In-Center Hemodialysis Treatment 6629-08-92T08:13:17.000Z 0543-28-47S36:43:17.000Z BP Sitting (Pre-Dialysis) 116/50 mmHg BP Sitting (Post-Dialysis) 120/55 mmHg Concurrent Access: falseAV Fistula Upper Arm (Right) Arterial Sitting Heart Rate Pre-Dialysis 59 BPM Sitting H eart Rate Post-Dialysis 55 BPM Temperature Pre-Dialysis 97.4 degF Temperature Post -Dialysis 98 degF November 25, 2024 In-Center Hemodialysis Treatment 8987-87-72F05:45:04.000Z 6850-54-97F27:15:29.000Z BP Sitting (Pre-Dialysis) 109/49 mmHg BP Sitting (Post-Dialysis) 109/52 mmHg Concurrent Access: falseAV Fistula Upper Arm (Right) Arterial Sitting Heart Rate Pre-Dialysis 49 BPM Sitting H eart Rate Post-Dialysis 48 BPM Temperature Pre-Dialysis 97.6 degF Temperature Post -Dialysis 97.6 degF November 20, 2024 In-Center Hemodialysis Treatment 4358-83-59W17:41:32.000Z 6772-17-40A69:46:57.000Z BP Sitting (Pre-Dialysis) 110/57 mmHg BP Sitting (Post-Dialysis) 114/59 mmHg Concurrent Access: falseAV Fistula Upper Arm (Right) Arterial Sitting Heart Rate Pre-Dialysis 45 BPM Sitting H eart Rate Post-Dialysis 56 BPM Temperature Pre-Dialysis 97.3 degF Temperature Post -Dialysis 97.7 degF November 18, 2024 In-Center Hemodialysis Treatment 0084-39-34T27:36:00.000Z 6016-26-45P62:11:41.000Z BP Sitting (Pre-Dialysis) 123/59 mmHg BP Sitting (Post-Dialysis) 113/57 mmHg Concurrent Access: falseAV Fistula Upper Arm (Right) Arterial Sitting Heart Rate Pre-Dialysis 55 BPM Sitting H eart Rate Post-Dialysis 59 BPM Temperature Pre-Dialysis 98 degF Temperature Post -Dialysis 98.1 degF November 16, 2024 In-Center Hemodialysis Treatment 8268-11-26Q11:39:37.000Z 4699-62-34T87:49:37.000Z BP Sitting (Pre-Dialysis) 123/61 mmHg BP Sitting (Post-Dialysis) 108/51 mmHg Concurrent Access: falseAV Fistula Upper Arm (Right) Arterial Sitting Heart Rate Pre-Dialysis 48 BPM Sitting H eart Rate Post-Dialysis 49 BPM Temperature Pre-Dialysis 97.2 degF Temperature Post -Dialysis 97.3 degF November 13, 2024 In-Center Hemodialysis Treatment 8008-09-79Q39:23:00.000Z 7214-99-73U09:50:50.000Z BP Sitting (Pre-Dialysis) 106/55 mmHg BP Sitting (Post-Dialysis) 130/58 mmHg Concurrent Access: falseAV Fistula Upper Arm (Right) Arterial Sitting Heart Rate Pre-Dialysis 49 BPM Sitting H eart Rate Post-Dialysis 43 BPM Temperature Pre-Dialysis 98 degF Temperature Post -Dialysis 97.6 degF November 11, 2024 In-Center Hemodialysis Treatment 4995-22-87Y09:02:00.000Z 8586-41-65P21:33:13.000Z BP Sitting (Pre-Dialysis) 103/52 mmHg BP Sitting (Post-Dialysis) 122/55 mmHg Concurrent Access: falseAV Fistula Upper Arm (Right) Arterial Sitting Heart Rate Pre-Dialysis 52 BPM Sitting H eart Rate Post-Dialysis 54 BPM Temperature Pre-Dialysis 97.3 degF Temperature Post -Dialysis 97.2 degF November 09, 2024 In-Center Hemodialysis Treatment 5660-02-26A01:02:00.000Z 7001-92-30T51:40:27.000Z BP Sitting (Pre-Dialysis) 134/62 mmHg BP Sitting (Post-Dialysis) 118/51 mmHg Concurrent Access: falseAV Fistula Upper Arm (Right) Arterial Sitting Heart Rate Pre-Dialysis 62 BPM Sitting H eart Rate Post-Dialysis 59 BPM Temperature Pre-Dialysis 97.6 degF Temperature Post -Dialysis 97.6 degF November 06, 2024 In-Center Hemodialysis Treatment 8768-86-89M38:01:00.000Z 3568-23-96O11:12:40.000Z BP Sitting (Pre-Dialysis) 106/66 mmHg BP Sitting (Post-Dialysis) 119/65 mmHg Concurrent Access: falseAV Fistula Upper Arm (Right) Arterial Sitting Heart Rate Pre-Dialysis 59 BPM Sitting H eart Rate Post-Dialysis 55 BPM Temperature Pre-Dialysis 98 degF Temperature Post -Dialysis 98.4 degF November 04, 2024 In-Center Hemodialysis Treatment 4649-69-46B80:15:12.000Z 7645-90-79B05:46:02.000Z BP Sitting (Pre-Dialysis) 107/57 mmHg BP Sitting (Post-Dialysis) 125/71 mmHg Concurrent Access: falseAV Fistula Upper Arm (Right) Arterial Sitting Heart Rate Pre-Dialysis 46 BPM Sitting H eart Rate Post-Dialysis 61 BPM Temperature Pre-Dialysis 97.3 degF Temperature Post -Dialysis 98 degF November 02, 2024 In-Center Hemodialysis Treatment 7975-12-21A13:57:00.000Z 5709-82-98V22:47:13.000Z BP Sitting (Pre-Dialysis) 126/60 mmHg BP Sitting (Post-Dialysis) 124/58 mmHg Concurrent Access: falseAV Fistula Upper Arm (Right) Arterial Sitting Heart Rate Pre-Dialysis 56 BPM Sitting H eart Rate Post-Dialysis 59 BPM Temperature Pre-Dialysis 96.7 degF Temperature Post -Dialysis 98.8 degF October 30, 2024 In-Center Hemodialysis Treatment 8607-83-66B41:33:00.000Z 1832-71-35G95:47:48.000Z BP Sitting (Pre-Dialysis) 131/61 mmHg BP Sitting (Post-Dialysis) 128/56 mmHg Concurrent Access: falseAV Fistula Upper Arm (Right) Arterial Sitting Heart Rate Pre-Dialysis 45 BPM Sitting H eart Rate Post-Dialysis 51 BPM Temperature Pre-Dialysis 97.2 degF Temperature Post -Dialysis 98.2 degF October 28, 2024 In-Center Hemodialysis Treatment 8107-19-39L76:09:50.000Z 2953-15-00S58:39:25.000Z BP Sitting (Pre-Dialysis) 95/49 mmHg BP Sitting (Post-Dialysis) 116/54 mmHg Concurrent Access: falseAV Fistula Upper Arm (Right) Arterial Sitting Heart Rate Pre-Dialysis 42 BPM Sitting H eart Rate Post-Dialysis 51 BPM Temperature Pre-Dialysis 97.3 degF Temperature Post -Dialysis 97.9 degF October 16, 2024 In-Center Hemodialysis Treatment 7082-78-28W26:23:00.000Z 2930-09-78A74:24:01.000Z BP Sitting (Pre-Dialysis) 113/73 mmHg BP Sitting (Post-Dialysis) 168/84 mmHg Concurrent Access: falseAV Fistula Upper Arm (Right) Arterial Sitting Heart Rate Pre-Dialysis 48 BPM Sitting H eart Rate Post-Dialysis 56 BPM Temperature Pre-Dialysis 97.3 degF Temperature Post -Dialysis 98 degF October 14, 2024 In-Center Hemodialysis Treatment 3021-93-02W08:20:05.000Z 5031-68-30V27:50:05.000Z BP Sitting (Pre-Dialysis) 118/58 mmHg BP Sitting (Post-Dialysis) 140/63 mmHg Concurrent Access: falseAV Fistula Upper Arm (Right) Arterial Sitting Heart Rate Pre-Dialysis 51 BPM Sitting H eart Rate Post-Dialysis 55 BPM Temperature Pre-Dialysis 98 degF Temperature Post -Dialysis 98 degF October 12, 2024 In-Center Hemodialysis Treatment 9664-59-65Y94:21:12.000Z 8258-98-54N25:47:27.000Z BP Sitting (Pre-Dialysis) 111/57 mmHg BP Sitting (Post-Dialysis) 116/51 mmHg Concurrent Access: falseAV Fistula Upper Arm (Right) Arterial Sitting Heart Rate Pre-Dialysis 55 BPM Sitting H eart Rate Post-Dialysis 55 BPM Temperature Pre-Dialysis 97.9 degF Temperature Post -Dialysis 98.1 degF October 09, 2024 In-Center Hemodialysis Treatment 5789-05-85E53:28:00.000Z 3149-09-52R14:47:29.000Z BP Sitting (Pre-Dialysis) 136/55 mmHg BP Sitting (Post-Dialysis) 143/55 mmHg Concurrent Access: falseAV Fistula Upper Arm (Right) Arterial Sitting Heart Rate Pre-Dialysis 42 BPM Sitting H eart Rate Post-Dialysis 47 BPM Temperature Pre-Dialysis 98.1 degF Temperature Post -Dialysis 98.1 degF October 07, 2024 In-Center Hemodialysis Treatment 5863-43-46H33:34:48.000Z 0111-57-25O90:57:43.000Z BP Sitting (Pre-Dialysis) 137/69 mmHg BP Sitting (Post-Dialysis) 133/68 mmHg Concurrent Access: falseAV Fistula Upper Arm (Right) Arterial Sitting Heart Rate Pre-Dialysis 52 BPM Sitting H eart Rate Post-Dialysis 52 BPM Temperature Pre-Dialysis 97.9 degF Temperature Post -Dialysis 97.3 degF October 05, 2024 In-Center Hemodialysis Treatment 7303-44-91R74:34:00.000Z 4555-40-32U28:08:53.000Z BP Sitting (Pre-Dialysis) 123/56 mmHg BP Sitting (Post-Dialysis) 131/60 mmHg Concurrent Access: falseAV Fistula Upper Arm (Right) Arterial Sitting Heart Rate Pre-Dialysis 50 BPM Sitting H eart Rate Post-Dialysis 53 BPM Temperature Pre-Dialysis 98 degF Temperature Post -Dialysis 97.8 degF October 02, 2024 In-Center Hemodialysis Treatment 2283-41-37P34:33:20.000Z 8898-94-58M06:40:25.000Z BP Sitting (Pre-Dialysis) 115/53 mmHg BP Sitting (Post-Dialysis) 119/55 mmHg Concurrent Access: falseAV Fistula Upper Arm (Right) Arterial Sitting Heart Rate Pre-Dialysis 48 BPM Sitting H eart Rate Post-Dialysis 52 BPM Temperature Pre-Dialysis 97.8 degF Temperature Post -Dialysis 98 degF September 30, 2024 In-Center Hemodialysis Treatment 8405-05-83L46:28:00.000Z 2918-78-48J81:46:35.000Z BP Sitting (Pre-Dialysis) 112/51 mmHg BP Sitting (Post-Dialysis) 131/58 mmHg Concurrent Access: falseAV Fistula Upper Arm (Right) Arterial Sitting Heart Rate Pre-Dialysis 40 BPM Sitting H eart Rate Post-Dialysis 48 BPM Temperature Pre-Dialysis 97.2 degF Temperature Post -Dialysis 98.2 degF September 28, 2024 In-Center Hemodialysis Treatment 8394-68-93V61:37:00.000Z 6246-61-72Z62:10:29.000Z BP Sitting (Pre-Dialysis) 130/63 mmHg BP Sitting (Post-Dialysis) 101/49 mmHg Concurrent Access: falseAV Fistula Upper Arm (Right) Arterial Sitting Heart Rate Pre-Dialysis 52 BPM Sitting H eart Rate Post-Dialysis 52 BPM Temperature Pre-Dialysis 97.6 degF Temperature Post -Dialysis 98 degF September 25, 2024 In-Center Hemodialysis Treatment 7200-84-41S27:05:04.000Z 0544-15-55K85:19:00.000Z BP Sitting (Pre-Dialysis) 139/65 mmHg BP Sitting (Post-Dialysis) 134/63 mmHg Concurrent Access: falseAV Fistula Upper Arm (Right) Arterial Sitting Heart Rate Pre-Dialysis 49 BPM Sitting H eart Rate Post-Dialysis 52 BPM Temperature Pre-Dialysis 97.2 degF Temperature Post -Dialysis 97.3 degF September 23, 2024 In-Center Hemodialysis Treatment 4243-27-19D88:12:35.000Z 2819-14-75U74:06:45.000Z BP Sitting (Pre-Dialysis) 126/62 mmHg BP Sitting (Post-Dialysis) 131/60 mmHg Concurrent Access: falseAV Fistula Upper Arm (Right) Arterial Sitting Heart Rate Pre-Dialysis 48 BPM Sitting H eart Rate Post-Dialysis 50 BPM Temperature Pre-Dialysis 97.6 degF Temperature Post -Dialysis 97.4 degF September 21, 2024 In-Center Hemodialysis Treatment 8569-01-14L82:02:27.000Z 3811-73-64E76:44:07.000Z BP Sitting (Pre-Dialysis) 109/53 mmHg BP Sitting (Post-Dialysis) 127/60 mmHg Concurrent Access: falseAV Fistula Upper Arm (Right) Arterial Sitting Heart Rate Pre-Dialysis 53 BPM Sitting H eart Rate Post-Dialysis 56 BPM Temperature Pre-Dialysis 98.2 degF Temperature Post -Dialysis 98.1 degF September 18, 2024 In-Center Hemodialysis Treatment 3907-34-02F58:32:29.000Z 8189-06-28F35:02:04.000Z BP Sitting (Pre-Dialysis) 141/66 mmHg BP Sitting (Post-Dialysis) 142/68 mmHg Concurrent Access: falseAV Fistula Upper Arm (Right) Arterial Sitting Heart Rate Pre-Dialysis 49 BPM Sitting H eart Rate Post-Dialysis 53 BPM Temperature Pre-Dialysis 97.7 degF Temperature Post -Dialysis 97.3 degF September 16, 2024 In-Center Hemodialysis Treatment 7935-63-32Y98:49:23.000Z 5115-67-98S68:51:53.000Z BP Sitting (Pre-Dialysis) 132/62 mmHg BP Sitting (Post-Dialysis) 127/71 mmHg Concurrent Access: falseAV Fistula Upper Arm (Right) Arterial Sitting Heart Rate Pre-Dialysis 51 BPM Sitting H eart Rate Post-Dialysis 58 BPM Temperature Pre-Dialysis 97.5 degF Temperature Post -Dialysis 97.7 degF September 14, 2024 In-Center Hemodialysis Treatment 8171-66-47G77:54:32.000Z 6421-38-04P92:24:32.000Z BP Sitting (Pre-Dialysis) 166/73 mmHg BP Sitting (Post-Dialysis) 133/66 mmHg Concurrent Access: falseAV Fistula Upper Arm (Right) Arterial Sitting Heart Rate Pre-Dialysis 62 BPM Sitting H eart Rate Post-Dialysis 59 BPM Temperature Pre-Dialysis 98 degF Temperature Post -Dialysis 98 degF September 09, 2024 In-Center Hemodialysis Treatment 9508-68-31O55:26:00.000Z 5039-26-89M57:34:24.000Z BP Sitting (Pre-Dialysis) 168/62 mmHg BP Sitting (Post-Dialysis) 128/62 mmHg Concurrent Access: falseAV Fistula Upper Arm (Right) Arterial Sitting Heart Rate Pre-Dialysis 48 BPM Sitting H eart Rate Post-Dialysis 58 BPM Temperature Pre-Dialysis 97.7 degF Temperature Post -Dialysis 98 degF September 04, 2024 In-Center Hemodialysis Treatment 5853-38-69U83:08:00.000Z 3123-89-99Z70:15:15.000Z BP Sitting (Pre-Dialysis) 134/88 mmHg BP Sitting (Post-Dialysis) 143/67 mmHg Concurrent Access: falseAV Fistula Upper Arm (Right) Arterial Sitting Heart Rate Pre-Dialysis 56 BPM Sitting H eart Rate Post-Dialysis 52 BPM Temperature Pre-Dialysis 97.7 degF Temperature Post -Dialysis 97.6 degF September 01, 2024 In-Center Hemodialysis Treatment 9069-65-42L20:51:52.000Z 5973-02-37C06:29:22.000Z BP Sitting (Pre-Dialysis) 141/69 mmHg BP Sitting (Post-Dialysis) 149/72 mmHg Concurrent Access: falseAV Fistula Upper Arm (Right) Arterial Sitting Heart Rate Pre-Dialysis 56 BPM Sitting H eart Rate Post-Dialysis 54 BPM Temperature Pre-Dialysis 97.5 degF Temperature Post -Dialysis 98.1 degF August 30, 2024 In-Center Hemodialysis Treatment 4463-34-81N62:55:29.000Z 3220-89-23Z54:56:19.000Z BP Sitting (Pre-Dialysis) 139/66 mmHg BP Sitting (Post-Dialysis) 122/64 mmHg Concurrent Access: falseAV Fistula Upper Arm (Right) Arterial Sitting Heart Rate Pre-Dialysis 57 BPM Sitting H eart Rate Post-Dialysis 56 BPM Temperature Pre-Dialysis 97.6 degF Temperature Post -Dialysis 98 degF August 28, 2024 In-Center Hemodialysis Treatment 2574-53-08E88:08:49.000Z 3687-69-46R33:20:29.000Z BP Sitting (Pre-Dialysis) 136/64 mmHg BP Sitting (Post-Dialysis) 130/59 mmHg Concurrent Access: falseAV Fistula Upper Arm (Right) Arterial Sitting Heart Rate Pre-Dialysis 58 BPM Sitting H eart Rate Post-Dialysis 61 BPM Temperature Pre-Dialysis 98.1 degF Temperature Post -Dialysis 98 degF August 25, 2024 In-Center Hemodialysis Treatment 4284-06-33G48:13:22.000Z 8269-67-90Y13:58:47.000Z BP Sitting (Pre-Dialysis) 142/67 mmHg BP Sitting (Post-Dialysis) 103/52 mmHg Concurrent Access: falseAV Fistula Upper Arm (Right) Arterial Sitting Heart Rate Pre-Dialysis 56 BPM Sitting H eart Rate Post-Dialysis 57 BPM Temperature Pre-Dialysis 97.7 degF Temperature Post -Dialysis 97.7 degF August 23, 2024 In-Center Hemodialysis Treatment 7929-09-07Q97:02:44.000Z 2604-16-79H95:02:19.000Z BP Sitting (Pre-Dialysis) 144/73 mmHg BP Sitting (Post-Dialysis) 121/50 mmHg Concurrent Access: falseAV Fistula Upper Arm (Right) Arterial Sitting Heart Rate Pre-Dialysis 62 BPM Sitting H eart Rate Post-Dialysis 56 BPM Temperature Pre-Dialysis 97.9 degF Temperature Post -Dialysis 97.2 degF August 21, 2024 In-Center Hemodialysis Treatment 5559-04-41V42:03:39.000Z 1700-60-32P28:18:14.000Z BP Sitting (Pre-Dialysis) 125/72 mmHg BP Sitting (Post-Dialysis) 118/68 mmHg Concurrent Access: falseAV Fistula Upper Arm (Right) Arterial Sitting Heart Rate Pre-Dialysis 63 BPM Sitting H eart Rate Post-Dialysis 62 BPM Temperature Pre-Dialysis 97.8 degF Temperature Post -Dialysis 97.6 degF August 19, 2024 In-Center Hemodialysis Treatment 3801-07-73U27:01:00.000Z 9255-27-60S59:22:35.000Z BP Sitting (Pre-Dialysis) 146/74 mmHg BP Sitting (Post-Dialysis) 114/59 mmHg Concurrent Access: falseAV Fistula Upper Arm (Right) Arterial Sitting Heart Rate Pre-Dialysis 63 BPM Sitting H eart Rate Post-Dialysis 58 BPM Temperature Pre-Dialysis 97.7 degF Temperature Post -Dialysis 98.3 degF August 17, 2024 In-Center Hemodialysis Treatment 6395-26-57K15:18:20.000Z 1659-18-66F84:43:45.000Z BP Sitting (Pre-Dialysis) 128/68 mmHg BP Sitting (Post-Dialysis) 117/56 mmHg Concurrent Access: falseAV Fistula Upper Arm (Right) Arterial Sitting Heart Rate Pre-Dialysis 56 BPM Sitting H eart Rate Post-Dialysis 53 BPM Temperature Pre-Dialysis 97.2 degF Temperature Post -Dialysis 98.2 degF August 14, 2024 In-Center Hemodialysis Treatment 6628-63-56Z43:58:59.000Z 9854-30-61E10:14:49.000Z BP Sitting (Pre-Dialysis) 146/76 mmHg BP Sitting (Post-Dialysis) 139/67 mmHg Concurrent Access: falseAV Fistula Upper Arm (Right) Arterial Sitting Heart Rate Pre-Dialysis 54 BPM Sitting H eart Rate Post-Dialysis 56 BPM Temperature Pre-Dialysis 98 degF Temperature Post -Dialysis 98 degF August 12, 2024 In-Center Hemodialysis Treatment 1964-99-81X15:36:00.000Z 5149-37-11M87:10:00.000Z BP Sitting (Pre-Dialysis) 156/71 mmHg BP Sitting (Post-Dialysis) 133/63 mmHg Concurrent Access: falseAV Fistula Upper Arm (Right) Arterial Sitting Heart Rate Pre-Dialysis 55 BPM Sitting H eart Rate Post-Dialysis 60 BPM Temperature Pre-Dialysis 97.7 degF Temperature Post -Dialysis 98.5 degF August 10, 2024 In-Center Hemodialysis Treatment 5492-40-97C03:26:00.000Z 6139-24-92M16:26:49.000Z BP Sitting (Pre-Dialysis) 138/71 mmHg BP Sitting (Post-Dialysis) 116/54 mmHg Concurrent Access: falseAV Fistula Upper Arm (Right) Arterial Sitting Heart Rate Pre-Dialysis 53 BPM Sitting H eart Rate Post-Dialysis 54 BPM Temperature Pre-Dialysis 98 degF Temperature Post -Dialysis 98.2 degF August 07, 2024 In-Center Hemodialysis Treatment 0008-77-95Q61:30:00.000Z 3252-70-91N57:04:07.000Z BP Sitting (Pre-Dialysis) 144/72 mmHg BP Sitting (Post-Dialysis) 148/67 mmHg Concurrent Access: falseAV Fistula Upper Arm (Right) Arterial Sitting Heart Rate Pre-Dialysis 63 BPM Sitting H eart Rate Post-Dialysis 91 BPM Temperature Pre-Dialysis 98.2 degF Temperature Post -Dialysis 97.6 degF August 05, 2024 In-Center Hemodialysis Treatment 5185-42-21A49:26:06.000Z 2289-98-27B63:16:06.000Z BP Sitting (Pre-Dialysis) 152/74 mmHg BP Sitting (Post-Dialysis) 131/53 mmHg Concurrent Access: falseAV Fistula Upper Arm (Right) Arterial Sitting Heart Rate Pre-Dialysis 59 BPM Sitting H eart Rate Post-Dialysis 67 BPM Temperature Pre-Dialysis 97.8 degF Temperature Post -Dialysis 97.6 degF August 03, 2024 In-Center Hemodialysis Treatment 1496-96-18Y53:41:31.000Z 2793-15-35B97:11:06.000Z BP Sitting (Pre-Dialysis) 134/70 mmHg BP Sitting (Post-Dialysis) 127/65 mmHg Concurrent Access: falseAV Fistula Upper Arm (Right) Arterial Sitting Heart Rate Pre-Dialysis 57 BPM Sitting H eart Rate Post-Dialysis 49 BPM Temperature Pre-Dialysis 98 degF Temperature Post -Dialysis 97.3 degF July 31, 2024 In-Center Hemodialysis Treatment 9929-55-34P48:45:37.000Z 0804-55-60M29:24:47.000Z BP Sitting (Pre-Dialysis) 156/70 mmHg BP Sitting (Post-Dialysis) 150/70 mmHg Concurrent Access: falseAV Fistula Upper Arm (Right) Arterial Sitting Heart Rate Pre-Dialysis 72 BPM Sitting H eart Rate Post-Dialysis 51 BPM Temperature Pre-Dialysis 98 degF Temperature Post -Dialysis 97 degF July 28, 2024 In-Center Hemodialysis Treatment 3848-56-90G58:15:23.000Z 7109-20-58X64:14:58.000Z BP Sitting (Pre-Dialysis) 152/58 mmHg BP Sitting (Post-Dialysis) 148/71 mmHg Concurrent Access: falseAV Fistula Upper Arm (Right) Arterial Sitting Heart Rate Pre-Dialysis 45 BPM Sitting H eart Rate Post-Dialysis 60 BPM Temperature Pre-Dialysis 97.9 degF Temperature Post -Dialysis 97.3 degF July 26, 2024 In-Center Hemodialysis Treatment 0438-26-82B65:05:00.000Z 1495-02-09D40:25:03.000Z BP Sitting (Pre-Dialysis) 136/71 mmHg BP Sitting (Post-Dialysis) 125/61 mmHg Concurrent Access: falseAV Fistula Upper Arm (Right) Arterial Sitting Heart Rate Pre-Dialysis 58 BPM Sitting H eart Rate Post-Dialysis 57 BPM Temperature Pre-Dialysis 97.5 degF Temperature Post -Dialysis 98 degF July 24, 2024 In-Center Hemodialysis Treatment 3287-01-02Q66:03:46.000Z 0207-61-92G11:36:16.000Z BP Sitting (Pre-Dialysis) 155/73 mmHg BP Sitting (Post-Dialysis) 160/72 mmHg Concurrent Access: falseAV Fistula Upper Arm (Right) Arterial Sitting Heart Rate Pre-Dialysis 78 BPM Sitting H eart Rate Post-Dialysis 58 BPM Temperature Pre-Dialysis 98.1 degF Temperature Post -Dialysis 97.8 degF July 20, 2024 In-Center Hemodialysis Treatment 3211-78-40I15:44:41.000Z 7217-94-96S71:25:31.000Z BP Sitting (Pre-Dialysis) 150/72 mmHg BP Sitting (Post-Dialysis) 128/60 mmHg Concurrent Access: falseAV Fistula Upper Arm (Right) Arterial Sitting Heart Rate Pre-Dialysis 60 BPM Sitting H eart Rate Post-Dialysis 58 BPM Temperature Pre-Dialysis 97.8 degF Temperature Post -Dialysis 98 degF July 17, 2024 In-Center Hemodialysis Treatment 3357-52-15F35:12:00.000Z 2144-25-27J09:42:00.000Z BP Sitting (Pre-Dialysis) 148/78 mmHg BP Sitting (Post-Dialysis) 115/64 mmHg Concurrent Access: falseAV Fistula Upper Arm (Right) Arterial Sitting Heart Rate Pre-Dialysis 61 BPM Sitting H eart Rate Post-Dialysis 71 BPM Temperature Pre-Dialysis 97.6 degF Temperature Post -Dialysis 97.3 degF July 15, 2024 In-Center Hemodialysis Treatment 8903-42-81X94:55:29.000Z 6564-91-93C21:17:34.000Z BP Sitting (Pre-Dialysis) 143/66 mmHg BP Sitting (Post-Dialysis) 120/56 mmHg Concurrent Access: falseAV Fistula Upper Arm (Right) Arterial Sitting Heart Rate Pre-Dialysis 52 BPM Sitting H eart Rate Post-Dialysis 58 BPM Temperature Pre-Dialysis 97.3 degF Temperature Post -Dialysis 98.2 degF July 10, 2024 In-Center Hemodialysis Treatment 4909-52-13K35:40:55.000Z 7409-34-61Q90:24:15.000Z BP Sitting (Pre-Dialysis) 156/75 mmHg BP Sitting (Post-Dialysis) 129/65 mmHg Concurrent Access: falseAV Fistula Upper Arm (Right) Arterial Sitting Heart Rate Pre-Dialysis 56 BPM Sitting H eart Rate Post-Dialysis 62 BPM Temperature Pre-Dialysis 98.2 degF Temperature Post -Dialysis 98 degF July 08, 2024 In-Center Hemodialysis Treatment 0331-73-76L24:46:17.000Z 6680-67-46X92:26:42.000Z BP Sitting (Pre-Dialysis) 157/65 mmHg BP Sitting (Post-Dialysis) 120/58 mmHg Concurrent Access: falseAV Fistula Upper Arm (Right) Arterial Sitting Heart Rate Pre-Dialysis 63 BPM BP Standi ng (Post-Dialysis) 113/57 mmHg Temperature Pre-Dialysis 98 degF Sitting Heart Ra te Post-Dialysis 57 BPM Standing Heart Rate Post-Rosa lysis 55 BPM Temperature Post-Dialysis 97 .8 degF July 06, 2024 In-Center Hemodialysis Treatment 7327-15-12E81:42:00.000Z 4326-26-66E78:12:57.000Z BP Sitting (Pre-Dialysis) 134/70 mmHg BP Sitting (Post-Dialysis) 119/60 mmHg Concurrent Access: falseAV Fistula Upper Arm (Right) Arterial Sitting Heart Rate Pre-Dialysis 56 BPM Sitting H eart Rate Post-Dialysis 56 BPM Temperature Pre-Dialysis 98 degF Temperature Post -Dialysis 98.1 degF July 03, 2024 In-Center Hemodialysis Treatment 3297-58-10B16:39:00.000Z 5259-25-52K24:15:18.000Z BP Sitting (Pre-Dialysis) 147/66 mmHg BP Sitting (Post-Dialysis) 132/65 mmHg Concurrent Access: falseAV Fistula Upper Arm (Right) Arterial Sitting Heart Rate Pre-Dialysis 57 BPM Sitting H eart Rate Post-Dialysis 55 BPM Temperature Pre-Dialysis 97.8 degF Temperature Post -Dialysis 97.9 degF July 01, 2024 In-Center Hemodialysis Treatment 4481-86-63S52:30:47.000Z 3149-46-43G15:17:02.000Z BP Sitting (Pre-Dialysis) 146/67 mmHg BP Sitting (Post-Dialysis) 151/70 mmHg Concurrent Access: falseAV Fistula Upper Arm (Right) Arterial Sitting Heart Rate Pre-Dialysis 56 BPM Sitting H eart Rate Post-Dialysis 62 BPM Temperature Pre-Dialysis 97.7 degF Temperature Post -Dialysis 97.6 degF June 29, 2024 In-Center Hemodialysis Treatment 5136-51-68Y24:47:39.000Z 7208-83-70F20:13:29.000Z BP Sitting (Pre-Dialysis) 110/55 mmHg BP Sitting (Post-Dialysis) 153/74 mmHg Concurrent Access: falseAV Fistula Upper Arm (Right) Arterial Sitting Heart Rate Pre-Dialysis 51 BPM Sitting H eart Rate Post-Dialysis 56 BPM Temperature Pre-Dialysis 98 degF Temperature Post -Dialysis 98.2 degF June 26, 2024 In-Center Hemodialysis Treatment 8739-37-49A85:55:00.000Z 8874-86-11A52:28:35.000Z BP Sitting (Pre-Dialysis) 121/55 mmHg BP Sitting (Post-Dialysis) 111/51 mmHg Concurrent Access: falseAV Fistula Upper Arm (Right) Arterial Sitting Heart Rate Pre-Dialysis 46 BPM Sitting H eart Rate Post-Dialysis 55 BPM Temperature Pre-Dialysis 98.1 degF Temperature Post -Dialysis 98.2 degF June 24, 2024 In-Center Hemodialysis Treatment 8640-67-04N88:10:05.000Z 5926-69-61Z29:13:00.000Z BP Sitting (Pre-Dialysis) 134/69 mmHg BP Sitting (Post-Dialysis) 109/58 mmHg Concurrent Access: falseAV Fistula Upper Arm (Right) Arterial Sitting Heart Rate Pre-Dialysis 44 BPM Sitting H eart Rate Post-Dialysis 60 BPM Temperature Pre-Dialysis 97.9 degF Temperature Post -Dialysis 97.3 degF June 22, 2024 In-Center Hemodialysis Treatment 4660-48-60Y93:02:57.000Z 5269-05-50D43:33:47.000Z BP Sitting (Pre-Dialysis) 149/66 mmHg BP Sitting (Post-Dialysis) 117/55 mmHg Concurrent Access: falseAV Fistula Upper Arm (Right) Arterial Sitting Heart Rate Pre-Dialysis 51 BPM Sitting H eart Rate Post-Dialysis 66 BPM Temperature Pre-Dialysis 98.1 degF Temperature Post -Dialysis 98.3 degF June 19, 2024 In-Center Hemodialysis Treatment 0780-97-68Q18:53:00.000Z 5071-90-24C23:56:10.000Z BP Sitting (Pre-Dialysis) 151/69 mmHg BP Sitting (Post-Dialysis) 137/64 mmHg Concurrent Access: falseAV Fistula Upper Arm (Right) Arterial Sitting Heart Rate Pre-Dialysis 51 BPM Sitting H eart Rate Post-Dialysis 71 BPM Temperature Pre-Dialysis 98.5 degF Temperature Post -Dialysis 97.6 degF June 17, 2024 In-Center Hemodialysis Treatment 4285-20-93Z49:58:14.000Z 6854-29-77Y12:01:34.000Z BP Sitting (Pre-Dialysis) 154/74 mmHg BP Sitting (Post-Dialysis) 124/54 mmHg Concurrent Access: falseAV Fistula Upper Arm (Right) Arterial Sitting Heart Rate Pre-Dialysis 54 BPM Sitting H eart Rate Post-Dialysis 46 BPM Temperature Pre-Dialysis 98 degF Temperature Post -Dialysis 97.2 degF June 15, 2024 In-Center Hemodialysis Treatment 7973-56-66Q09:51:16.000Z 5036-90-56F09:17:06.000Z BP Sitting (Pre-Dialysis) 131/62 mmHg BP Sitting (Post-Dialysis) 108/52 mmHg Concurrent Access: falseAV Fistula Upper Arm (Right) Arterial Sitting Heart Rate Pre-Dialysis 62 BPM Sitting H eart Rate Post-Dialysis 54 BPM Temperature Pre-Dialysis 98 degF Temperature Post -Dialysis 97.8 degF June 12, 2024 In-Center Hemodialysis Treatment 8664-28-04L16:02:00.000Z 6888-69-23M74:29:26.000Z BP Sitting (Pre-Dialysis) 166/56 mmHg BP Sitting (Post-Dialysis) 154/74 mmHg Concurrent Access: falseAV Fistula Upper Arm (Right) Arterial Sitting Heart Rate Pre-Dialysis 45 BPM Sitting H eart Rate Post-Dialysis 65 BPM Temperature Pre-Dialysis 98 degF Temperature Post -Dialysis 97.5 degF June 10, 2024 In-Center Hemodialysis Treatment 9885-02-79O54:41:00.000Z 6129-33-75H20:44:15.000Z BP Sitting (Pre-Dialysis) 138/67 mmHg BP Sitting (Post-Dialysis) 140/67 mmHg Concurrent Access: falseAV Fistula Upper Arm (Right) Arterial Sitting Heart Rate Pre-Dialysis 57 BPM Sitting H eart Rate Post-Dialysis 60 BPM Temperature Pre-Dialysis 98.3 degF Temperature Post -Dialysis 97.3 degF June 05, 2024 In-Center Hemodialysis Treatment 4932-64-94F27:10:39.000Z 0640-29-32E10:20:39.000Z BP Sitting (Pre-Dialysis) 132/60 mmHg BP Sitting (Post-Dialysis) 129/63 mmHg Concurrent Access: falseAV Fistula Upper Arm (Right) Arterial Sitting Heart Rate Pre-Dialysis 46 BPM Sitting H eart Rate Post-Dialysis 62 BPM Temperature Pre-Dialysis 98 degF Temperature Post -Dialysis 97.1 degF June 01, 2024 In-Center Hemodialysis Treatment 2119-24-15I36:46:00.000Z 3419-70-04S13:24:12.000Z BP Sitting (Pre-Dialysis) 133/60 mmHg BP Sitting (Post-Dialysis) 123/59 mmHg Concurrent Access: falseAV Fistula Upper Arm (Right) Arterial Sitting Heart Rate Pre-Dialysis 57 BPM Sitting H eart Rate Post-Dialysis 57 BPM Temperature Pre-Dialysis 97.6 degF Temperature Post -Dialysis 97.3 degF May 29, 2024 In-Center Hemodialysis Treatment 8271-71-62J92:03:00.000Z 7338-34-68I63:07:29.000Z BP Sitting (Pre-Dialysis) 133/60 mmHg BP Sitting (Post-Dialysis) 140/67 mmHg Concurrent Access: falseAV Fistula Upper Arm (Right) Arterial Sitting Heart Rate Pre-Dialysis 54 BPM Sitting H eart Rate Post-Dialysis 59 BPM Temperature Pre-Dialysis 97.8 degF Temperature Post -Dialysis 98.3 degF May 27, 2024 In-Center Hemodialysis Treatment 2343-39-59X34:08:26.000Z 5018-03-09W28:18:01.000Z BP Sitting (Pre-Dialysis) 142/67 mmHg BP Sitting (Post-Dialysis) 120/55 mmHg Concurrent Access: falseAV Fistula Upper Arm (Right) Arterial Sitting Heart Rate Pre-Dialysis 61 BPM Sitting H eart Rate Post-Dialysis 59 BPM Temperature Pre-Dialysis 97.6 degF Temperature Post -Dialysis 98 degF May 25, 2024 In-Center Hemodialysis Treatment 4280-15-00D43:43:23.000Z 9625-39-50D77:14:13.000Z BP Sitting (Pre-Dialysis) 132/52 mmHg BP Sitting (Post-Dialysis) 141/64 mmHg Concurrent Access: falseAV Fistula Upper Arm (Right) Arterial Sitting Heart Rate Pre-Dialysis 51 BPM Sitting H eart Rate Post-Dialysis 62 BPM Temperature Pre-Dialysis 97.5 degF Temperature Post -Dialysis 97.8 degF May 22, 2024 In-Center Hemodialysis Treatment 2468-64-79L50:02:00.000Z 2999-44-78Y71:17:27.000Z BP Sitting (Pre-Dialysis) 127/65 mmHg BP Sitting (Post-Dialysis) 110/51 mmHg Concurrent Access: falseAV Fistula Upper Arm (Right) Arterial Sitting Heart Rate Pre-Dialysis 53 BPM Sitting H eart Rate Post-Dialysis 63 BPM Temperature Pre-Dialysis 97.6 degF Temperature Post -Dialysis 97.8 degF May 20, 2024 In-Center Hemodialysis Treatment 8282-16-60D93:10:20.000Z 9580-08-43Z22:28:15.000Z BP Sitting (Pre-Dialysis) 140/58 mmHg BP Sitting (Post-Dialysis) 122/63 mmHg Concurrent Access: falseAV Fistula Upper Arm (Right) Arterial Sitting Heart Rate Pre-Dialysis 49 BPM Sitting H eart Rate Post-Dialysis 57 BPM Temperature Pre-Dialysis 97.7 degF May 18, 2024 In-Center Hemodialysis Treatment 4712-60-64D68:05:00.000Z 5104-73-32S38:17:52.000Z BP Sitting (Pre-Dialysis) 154/73 mmHg BP Sitting (Post-Dialysis) 133/65 mmHg Concurrent Access: falseAV Fistula Upper Arm (Right) Arterial Sitting Heart Rate Pre-Dialysis 52 BPM Sitting H eart Rate Post-Dialysis 57 BPM Temperature Pre-Dialysis 97.8 degF Temperature Post -Dialysis 98.2 degF May 15, 2024 In-Center Hemodialysis Treatment 8518-37-54J77:30:02.000Z 8242-46-72L33:01:17.000Z BP Sitting (Pre-Dialysis) 155/72 mmHg BP Sitting (Post-Dialysis) 141/61 mmHg Concurrent Access: falseAV Fistula Upper Arm (Right) Arterial Sitting Heart Rate Pre-Dialysis 57 BPM Sitting H eart Rate Post-Dialysis 62 BPM Temperature Pre-Dialysis 98.2 degF Temperature Post -Dialysis 97.8 degF May 13, 2024 In-Center Hemodialysis Treatment 5502-51-32C10:56:23.000Z 8351-82-29H97:10:08.000Z BP Sitting (Pre-Dialysis) 106/52 mmHg BP Sitting (Post-Dialysis) 105/50 mmHg Concurrent Access: falseAV Fistula Upper Arm (Right) Arterial Sitting Heart Rate Pre-Dialysis 42 BPM Sitting H eart Rate Post-Dialysis 54 BPM Temperature Pre-Dialysis 97.9 degF Temperature Post -Dialysis 98.1 degF May 11, 2024 In-Center Hemodialysis Treatment 1151-78-28O07:48:19.000Z 3859-94-71M50:18:19.000Z BP Sitting (Pre-Dialysis) 133/74 mmHg BP Sitting (Post-Dialysis) 143/67 mmHg Concurrent Access: falseAV Fistula Upper Arm (Right) Arterial Sitting Heart Rate Pre-Dialysis 48 BPM Sitting H eart Rate Post-Dialysis 57 BPM Temperature Pre-Dialysis 98 degF Temperature Post -Dialysis 96.6 degF May 08, 2024 In-Center Hemodialysis Treatment 4703-30-45A51:50:00.000Z 5648-02-64S12:20:32.000Z BP Sitting (Pre-Dialysis) 156/66 mmHg BP Sitting (Post-Dialysis) 115/51 mmHg Concurrent Access: falseAV Fistula Upper Arm (Right) Arterial Sitting Heart Rate Pre-Dialysis 57 BPM Sitting H eart Rate Post-Dialysis 60 BPM Temperature Pre-Dialysis 98 degF Temperature Post -Dialysis 98 degF May 06, 2024 In-Center Hemodialysis Treatment 7969-36-80F12:46:57.000Z 3327-90-93W94:14:52.000Z BP Sitting (Pre-Dialysis) 134/66 mmHg BP Sitting (Post-Dialysis) 111/70 mmHg Concurrent Access: falseAV Fistula Upper Arm (Right) Arterial Sitting Heart Rate Pre-Dialysis 65 BPM Sitting H eart Rate Post-Dialysis 62 BPM Temperature Pre-Dialysis 98.4 degF Temperature Post -Dialysis 97.7 degF May 04, 2024 In-Center Hemodialysis Treatment 400 mL/min 800 mL/min Concurrent Access: false May 01, 2024 In-Center Hemodialysis Treatment 20 24 -0 8- 30 T1 5: 55 :0 0. 00 0Z 20 24 -0 8- 30 T1 9: 07 :4 4. 00 0Z BP Sitting (Pre-Dial ysis) 151/64 mmHg BP Sitting (Post-Rosa lysis) 110/5 2 mmHg Concurrent Access: falseAV Fistula Upper Arm (Right) Arterial Sitting Heart Rate Pre-Dialysis 50 BPM Sitting H eart Rate Post-Dialysis 61 BPM Temperature Pre-Dialysis 98 degF Temperature Post -Dialysis 97.6 degF April 29, 2024 In-Center Hemodialysis Treatment 1769-12-05C17:56:00.000Z 6453-09-91O95:27:31.000Z BP Sitting (Pre-Dialysis) 136/64 mmHg BP Sitting (Post-Dialysis) 147/64 mmHg Concurrent Access: falseAV Fistula Upper Arm (Right) Arterial Sitting Heart Rate Pre-Dialysis 51 BPM Sitting H eart Rate Post-Dialysis 60 BPM Temperature Pre-Dialysis 98.4 degF Temperature Post -Dialysis 97.3 degF April 27, 2024 In-Center Hemodialysis Treatment 0802-60-26Q33:07:00.000Z 6234-80-45N89:25:42.000Z BP Sitting (Pre-Dialysis) 142/67 mmHg BP Sitting (Post-Dialysis) 107/62 mmHg Concurrent Access: falseAV Fistula Upper Arm (Right) Arterial Sitting Heart Rate Pre-Dialysis 57 BPM Sitting H eart Rate Post-Dialysis 64 BPM Temperature Pre-Dialysis 98.2 degF Temperature Post -Dialysis 96.7 degF April 24, 2024 In-Center Hemodialysis Treatment 6136-60-03S65:04:09.000Z 2625-04-93H34:24:59.000Z BP Sitting (Pre-Dialysis) 143/59 mmHg BP Sitting (Post-Dialysis) 111/67 mmHg Concurrent Access: falseAV Fistula Upper Arm (Right) Arterial Sitting Heart Rate Pre-Dialysis 56 BPM Sitting H eart Rate Post-Dialysis 62 BPM Temperature Pre-Dialysis 98.2 degF Temperature Post -Dialysis 97.3 degF April 22, 2024 In-Center Hemodialysis Treatment 8632-62-11M76:40:00.000Z 2680-83-55I80:37:47.000Z BP Sitting (Pre-Dialysis) 160/65 mmHg BP Sitting (Post-Dialysis) 124/56 mmHg Concurrent Access: falseAV Fistula Upper Arm (Right) Arterial Sitting Heart Rate Pre-Dialysis 66 BPM Sitting H eart Rate Post-Dialysis 56 BPM Temperature Pre-Dialysis 98.1 degF Temperature Post -Dialysis 97 degF April 20, 2024 In-Center Hemodialysis Treatment 2086-90-24S20:36:00.000Z 3337-60-45X13:09:09.000Z BP Sitting (Pre-Dialysis) 123/62 mmHg BP Sitting (Post-Dialysis) 104/45 mmHg Concurrent Access: falseAV Fistula Upper Arm (Right) Arterial Sitting Heart Rate Pre-Dialysis 55 BPM Sitting H eart Rate Post-Dialysis 54 BPM Temperature Pre-Dialysis 98.2 degF Temperature Post -Dialysis 97.3 degF April 17, 2024 In-Center Hemodialysis Treatment 9726-24-51Z45:44:00.000Z 6555-74-24Z16:08:24.000Z BP Sitting (Pre-Dialysis) 147/63 mmHg BP Sitting (Post-Dialysis) 117/55 mmHg Concurrent Access: falseAV Fistula Upper Arm (Right) Arterial Sitting Heart Rate Pre-Dialysis 58 BPM Sitting H eart Rate Post-Dialysis 57 BPM Temperature Pre-Dialysis 97.9 degF Temperature Post -Dialysis 97.7 degF April 15, 2024 In-Center Hemodialysis Treatment 0923-75-21A81:31:00.000Z 1716-35-76L47:05:50.000Z BP Sitting (Pre-Dialysis) 157/71 mmHg BP Sitting (Post-Dialysis) 130/60 mmHg Concurrent Access: falseAV Fistula Upper Arm (Right) Arterial Sitting Heart Rate Pre-Dialysis 59 BPM Sitting H eart Rate Post-Dialysis 60 BPM Temperature Pre-Dialysis 98 degF Temperature Post -Dialysis 97.5 degF April 13, 2024 In-Center Hemodialysis Treatment 3048-07-35X27:51:38.000Z 8374-30-47P31:35:48.000Z BP Sitting (Pre-Dialysis) 143/70 mmHg BP Sitting (Post-Dialysis) 100/45 mmHg Concurrent Access: falseAV Fistula Upper Arm (Right) Arterial Sitting Heart Rate Pre-Dialysis 56 BPM Sitting H eart Rate Post-Dialysis 72 BPM Temperature Pre-Dialysis 98.2 degF Temperature Post -Dialysis 97.6 degF April 10, 2024 In-Center Hemodialysis Treatment 9009-71-73J76:12:30.000Z 5328-87-89Z45:17:05.000Z BP Sitting (Pre-Dialysis) 138/63 mmHg BP Sitting (Post-Dialysis) 139/63 mmHg Concurrent Access: falseAV Fistula Upper Arm (Right) Arterial Sitting Heart Rate Pre-Dialysis 62 BPM Sitting H eart Rate Post-Dialysis 63 BPM Temperature Pre-Dialysis 98.2 degF Temperature Post -Dialysis 98 degF April 08, 2024 In-Center Hemodialysis Treatment 6658-58-86F49:22:00.000Z 6018-71-56X73:56:39.000Z BP Sitting (Pre-Dialysis) 120/64 mmHg BP Sitting (Post-Dialysis) 109/59 mmHg Concurrent Access: falseAV Fistula Upper Arm (Right) Arterial Sitting Heart Rate Pre-Dialysis 60 BPM Sitting H eart Rate Post-Dialysis 55 BPM Temperature Pre-Dialysis 97.2 degF Temperature Post -Dialysis 97.1 degF April 06, 2024 In-Center Hemodialysis Treatment 8859-90-03K06:52:00.000Z 9173-99-31N47:17:51.000Z BP Sitting (Pre-Dialysis) 145/64 mmHg BP Sitting (Post-Dialysis) 141/58 mmHg Concurrent Access: falseAV Fistula Upper Arm (Right) Arterial Sitting Heart Rate Pre-Dialysis 60 BPM Sitting H eart Rate Post-Dialysis 47 BPM Temperature Pre-Dialysis 98.1 degF Temperature Post -Dialysis 97.2 degF April 03, 2024 In-Center Hemodialysis Treatment 0235-85-91W39:41:19.000Z 8932-43-33G03:11:19.000Z BP Sitting (Pre-Dialysis) 144/55 mmHg BP Sitting (Post-Dialysis) 102/47 mmHg Concurrent Access: falseAV Fistula Upper Arm (Right) Arterial Sitting Heart Rate Pre-Dialysis 56 BPM Sitting H eart Rate Post-Dialysis 58 BPM Temperature Pre-Dialysis 97.2 degF Temperature Post -Dialysis 97.1 degF April 01, 2024 In-Center Hemodialysis Treatment 0443-92-29M67:13:55.000Z 6036-48-27F65:09:20.000Z BP Sitting (Pre-Dialysis) 127/64 mmHg BP Sitting (Post-Dialysis) 122/59 mmHg Concurrent Access: falseAV Fistula Upper Arm (Right) Arterial Sitting Heart Rate Pre-Dialysis 44 BPM Sitting H eart Rate Post-Dialysis 56 BPM Temperature Pre-Dialysis 97.6 degF Temperature Post -Dialysis 97.2 degF March 30, 2024 In-Center Hemodialysis Treatment 1107-07-04X45:04:00.000Z 7706-28-03V42:26:17.000Z BP Sitting (Pre-Dialysis) 137/66 mmHg BP Sitting (Post-Dialysis) 119/53 mmHg Concurrent Access: falseAV Fistula Upper Arm (Right) Arterial Sitting Heart Rate Pre-Dialysis 55 BPM Sitting H eart Rate Post-Dialysis 52 BPM Temperature Pre-Dialysis 98 degF Temperature Post -Dialysis 97.5 degF March 27, 2024 In-Center Hemodialysis Treatment 1394-14-51T87:51:19.000Z 3105-02-97M83:10:29.000Z BP Sitting (Pre-Dialysis) 138/66 mmHg BP Sitting (Post-Dialysis) 128/52 mmHg Concurrent Access: falseAV Fistula Upper Arm (Right) Arterial Sitting Heart Rate Pre-Dialysis 64 BPM Sitting H eart Rate Post-Dialysis 45 BPM Temperature Pre-Dialysis 97.7 degF Temperature Post -Dialysis 97.2 degF March 25, 2024 In-Center Hemodialysis Treatment 0114-50-14D04:11:00.000Z 6776-29-35W93:48:03.000Z BP Sitting (Pre-Dialysis) 106/46 mmHg BP Sitting (Post-Dialysis) 125/61 mmHg Concurrent Access: falseAV Fistula Upper Arm (Right) Arterial Sitting Heart Rate Pre-Dialysis 44 BPM Sitting H eart Rate Post-Dialysis 59 BPM Temperature Pre-Dialysis 97.8 degF Temperature Post -Dialysis 97.3 degF March 23, 2024 In-Center Hemodialysis Treatment 2660-57-98O45:50:00.000Z 2271-13-46U51:14:56.000Z BP Sitting (Pre-Dialysis) 131/64 mmHg BP Sitting (Post-Dialysis) 128/65 mmHg Concurrent Access: falseAV Fistula Upper Arm (Right) Arterial Sitting Heart Rate Pre-Dialysis 51 BPM Sitting H eart Rate Post-Dialysis 63 BPM Temperature Pre-Dialysis 97.9 degF Temperature Post -Dialysis 98.2 degF March 20, 2024 In-Center Hemodialysis Treatment 4433-81-13X50:49:54.000Z 4446-84-18S59:22:55.000Z BP Sitting (Pre-Dialysis) 157/76 mmHg BP Sitting (Post-Dialysis) 123/50 mmHg Concurrent Access: falseAV Fistula Upper Arm (Right) Arterial Sitting Heart Rate Pre-Dialysis 66 BPM Sitting H eart Rate Post-Dialysis 55 BPM Temperature Pre-Dialysis 98.2 degF Temperature Post -Dialysis 97.6 degF March 18, 2024 In-Center Hemodialysis Treatment 0800-30-72Z71:47:26.000Z 4617-24-79L59:17:26.000Z BP Sitting (Pre-Dialysis) 130/54 mmHg BP Sitting (Post-Dialysis) 134/54 mmHg Concurrent Access: falseAV Fistula Upper Arm (Right) Arterial Sitting Heart Rate Pre-Dialysis 43 BPM Sitting H eart Rate Post-Dialysis 49 BPM Temperature Pre-Dialysis 98.4 degF Temperature Post -Dialysis 97.7 degF March 16, 2024 In-Center Hemodialysis Treatment 8192-12-89N25:48:29.000Z 0246-59-11G12:21:49.000Z BP Sitting (Pre-Dialysis) 141/59 mmHg BP Sitting (Post-Dialysis) 115/67 mmHg Concurrent Access: falseAV Fistula Upper Arm (Right) Arterial Sitting Heart Rate Pre-Dialysis 47 BPM Sitting H eart Rate Post-Dialysis 60 BPM Temperature Pre-Dialysis 98.2 degF Temperature Post -Dialysis 97.2 degF March 13, 2024 In-Center Hemodialysis Treatment 9748-82-92I17:45:00.000Z 1149-88-47Y32:28:19.000Z BP Sitting (Pre-Dialysis) 131/60 mmHg BP Sitting (Post-Dialysis) 117/60 mmHg Concurrent Access: falseAV Fistula Upper Arm (Right) Arterial Sitting Heart Rate Pre-Dialysis 52 BPM Sitting H eart Rate Post-Dialysis 56 BPM Temperature Pre-Dialysis 97.7 degF Temperature Post -Dialysis 97.7 degF March 11, 2024 In-Center Hemodialysis Treatment 9736-62-22O57:58:00.000Z 7635-93-35V05:28:00.000Z BP Sitting (Pre-Dialysis) 128/62 mmHg BP Sitting (Post-Dialysis) 122/51 mmHg Concurrent Access: falseAV Fistula Upper Arm (Right) Arterial Sitting Heart Rate Pre-Dialysis 54 BPM Sitting H eart Rate Post-Dialysis 53 BPM Temperature Pre-Dialysis 98.4 degF Temperature Post -Dialysis 96.1 degF March 09, 2024 In-Center Hemodialysis Treatment 2389-07-40C29:49:00.000Z 9887-81-91M88:27:28.000Z BP Sitting (Pre-Dialysis) 130/63 mmHg BP Sitting (Post-Dialysis) 115/44 mmHg Concurrent Access: falseAV Fistula Upper Arm (Right) Arterial Sitting Heart Rate Pre-Dialysis 61 BPM Sitting H eart Rate Post-Dialysis 64 BPM Temperature Pre-Dialysis 97.6 degF Temperature Post -Dialysis 97.6 degF March 02, 2024 In-Center Hemodialysis Treatment 9558-20-50A76:57:00.000Z 9108-31-41Z16:12:36.000Z BP Sitting (Pre-Dialysis) 122/59 mmHg BP Sitting (Post-Dialysis) 120/63 mmHg Concurrent Access: falseAV Fistula Upper Arm (Right) Arterial Sitting Heart Rate Pre-Dialysis 80 BPM Sitting H eart Rate Post-Dialysis 69 BPM Temperature Pre-Dialysis 97.5 degF Temperature Post -Dialysis 97.5 degF February 28, 2024 In-Center Hemodialysis Treatment 6539-03-10O62:11:37.000Z 3346-36-58D92:21:12.000Z BP Sitting (Pre-Dialysis) 126/59 mmHg BP Sitting (Post-Dialysis) 116/60 mmHg Concurrent Access: falseAV Fistula Upper Arm (Right) Arterial Sitting Heart Rate Pre-Dialysis 59 BPM Sitting H eart Rate Post-Dialysis 59 BPM Temperature Pre-Dialysis 98.1 degF Temperature Post -Dialysis 98.9 degF February 26, 2024 In-Center Hemodialysis Treatment 2754-64-45T70:29:00.000Z 6136-10-31W03:04:37.000Z BP Sitting (Pre-Dialysis) 144/58 mmHg BP Sitting (Post-Dialysis) 119/63 mmHg Concurrent Access: falseAV Fistula Upper Arm (Right) Arterial Sitting Heart Rate Pre-Dialysis 54 BPM Sitting H eart Rate Post-Dialysis 61 BPM Temperature Pre-Dialysis 97.6 degF Temperature Post -Dialysis 97.2 degF February 24, 2024 In-Center Hemodialysis Treatment 6563-91-03W22:13:35.000Z 8239-84-24E44:56:30.000Z BP Sitting (Pre-Dialysis) 127/65 mmHg BP Sitting (Post-Dialysis) 129/64 mmHg Concurrent Access: falseAV Fistula Upper Arm (Right) Arterial Sitting Heart Rate Pre-Dialysis 58 BPM Sitting H eart Rate Post-Dialysis 59 BPM Temperature Pre-Dialysis 97.6 degF Temperature Post -Dialysis 97.6 degF February 21, 2024 In-Center Hemodialysis Treatment 5460-05-81R34:32:42.000Z 6947-57-02G98:08:07.000Z BP Sitting (Pre-Dialysis) 127/60 mmHg BP Sitting (Post-Dialysis) 111/45 mmHg Concurrent Access: falseAV Fistula Upper Arm (Right) Arterial Sitting Heart Rate Pre-Dialysis 66 BPM Sitting H eart Rate Post-Dialysis 59 BPM Temperature Pre-Dialysis 98.1 degF Temperature Post -Dialysis 97.6 degF February 19, 2024 In-Center Hemodialysis Treatment 7264-85-74X64:03:00.000Z 0040-83-52G26:19:49.000Z BP Sitting (Pre-Dialysis) 127/50 mmHg BP Sitting (Post-Dialysis) 122/59 mmHg Concurrent Access: falseAV Fistula Upper Arm (Right) Arterial Sitting Heart Rate Pre-Dialysis 58 BPM Sitting H eart Rate Post-Dialysis 58 BPM Temperature Pre-Dialysis 97.6 degF Temperature Post -Dialysis 97.3 degF February 17, 2024 In-Center Hemodialysis Treatment 2476-67-58O55:08:56.000Z 9700-87-43L20:32:00.000Z BP Sitting (Pre-Dialysis) 138/67 mmHg BP Sitting (Post-Dialysis) 138/68 mmHg Concurrent Access: falseAV Fistula Upper Arm (Right) Arterial Sitting Heart Rate Pre-Dialysis 55 BPM Sitting H eart Rate Post-Dialysis 60 BPM Temperature Pre-Dialysis 98.3 degF Temperature Post -Dialysis 97.4 degF February 14, 2024 In-Center Hemodialysis Treatment 5091-56-55H61:00:00.000Z 9366-36-56W97:14:17.000Z BP Sitting (Pre-Dialysis) 124/58 mmHg BP Sitting (Post-Dialysis) 126/51 mmHg Concurrent Access: falseAV Fistula Upper Arm (Right) Arterial Sitting Heart Rate Pre-Dialysis 45 BPM Sitting H eart Rate Post-Dialysis 45 BPM Temperature Pre-Dialysis 97.6 degF Temperature Post -Dialysis 97.5 degF February 12, 2024 In-Center Hemodialysis Treatment 8365-76-83Z51:37:27.000Z 2447-44-12N33:07:52.000Z BP Sitting (Pre-Dialysis) 125/56 mmHg BP Sitting (Post-Dialysis) 140/62 mmHg Concurrent Access: falseAV Fistula Upper Arm (Right) Arterial Sitting Heart Rate Pre-Dialysis 47 BPM Sitting H eart Rate Post-Dialysis 63 BPM Temperature Pre-Dialysis 98.4 degF Temperature Post -Dialysis 97.3 degF February 10, 2024 In-Center Hemodialysis Treatment 3459-63-13T73:38:23.000Z 1337-67-88A52:07:58.000Z BP Sitting (Pre-Dialysis) 128/60 mmHg BP Sitting (Post-Dialysis) 134/63 mmHg Concurrent Access: falseAV Fistula Upper Arm (Right) Arterial Sitting Heart Rate Pre-Dialysis 51 BPM Sitting H eart Rate Post-Dialysis 59 BPM Temperature Pre-Dialysis 97.8 degF Temperature Post -Dialysis 97.2 degF February 07, 2024 In-Center Hemodialysis Treatment 3113-50-57D02:13:00.000Z 5328-33-13R98:48:00.000Z BP Sitting (Pre-Dialysis) 130/59 mmHg BP Sitting (Post-Dialysis) 114/50 mmHg Concurrent Access: falseAV Fistula Upper Arm (Right) Arterial Sitting Heart Rate Pre-Dialysis 57 BPM Sitting H eart Rate Post-Dialysis 61 BPM Temperature Pre-Dialysis 98.2 degF Temperature Post -Dialysis 98.2 degF February 05, 2024 In-Center Hemodialysis Treatment 0688-99-93I94:22:18.000Z 6321-17-95L46:38:58.000Z BP Sitting (Pre-Dialysis) 146/71 mmHg BP Sitting (Post-Dialysis) 132/59 mmHg Concurrent Access: falseAV Fistula Upper Arm (Right) Arterial Sitting Heart Rate Pre-Dialysis 58 BPM Sitting H eart Rate Post-Dialysis 58 BPM Temperature Pre-Dialysis 98.2 degF Temperature Post -Dialysis 98 degF February 03, 2024 In-Center Hemodialysis Treatment 7195-60-26I99:38:38.000Z 8383-70-36B68:08:13.000Z BP Sitting (Pre-Dialysis) 138/70 mmHg BP Sitting (Post-Dialysis) 136/70 mmHg Concurrent Access: falseAV Fistula Upper Arm (Right) Arterial Sitting Heart Rate Pre-Dialysis 56 BPM Sitting H eart Rate Post-Dialysis 66 BPM Temperature Pre-Dialysis 97.9 degF Temperature Post -Dialysis 97.6 degF January 31, 2024 In-Center Hemodialysis Treatment 4503-82-75Z86:57:29.000Z 4762-54-07W64:27:04.000Z BP Sitting (Pre-Dialysis) 129/64 mmHg BP Sitting (Post-Dialysis) 113/47 mmHg Concurrent Access: falseAV Fistula Upper Arm (Right) Arterial Sitting Heart Rate Pre-Dialysis 72 BPM Sitting H eart Rate Post-Dialysis 83 BPM Temperature Pre-Dialysis 98.4 degF Temperature Post -Dialysis 98.2 degF January 29, 2024 In-Center Hemodialysis Treatment 3257-76-69P59:56:00.000Z 4014-56-14S26:27:13.000Z BP Sitting (Pre-Dialysis) 140/79 mmHg BP Sitting (Post-Dialysis) 144/68 mmHg Concurrent Access: falseAV Fistula Upper Arm (Right) Arterial Sitting Heart Rate Pre-Dialysis 66 BPM Sitting H eart Rate Post-Dialysis 62 BPM Temperature Pre-Dialysis 98.1 degF Temperature Post -Dialysis 97.6 degF January 27, 2024 In-Center Hemodialysis Treatment 9302-42-21D78:55:00.000Z 4544-32-93B84:14:59.000Z BP Sitting (Pre-Dialysis) 146/71 mmHg BP Sitting (Post-Dialysis) 146/67 mmHg Concurrent Access: falseAV Fistula Upper Arm (Right) Arterial Sitting Heart Rate Pre-Dialysis 55 BPM Sitting H eart Rate Post-Dialysis 64 BPM Temperature Pre-Dialysis 98.3 degF Temperature Post -Dialysis 97.4 degF January 24, 2024 In-Center Hemodialysis Treatment 6949-43-07T90:15:00.000Z 3527-54-66P37:14:31.000Z BP Sitting (Pre-Dialysis) 156/70 mmHg BP Sitting (Post-Dialysis) 131/63 mmHg Concurrent Access: falseAV Fistula Upper Arm (Right) Arterial Sitting Heart Rate Pre-Dialysis 54 BPM Sitting H eart Rate Post-Dialysis 64 BPM Temperature Pre-Dialysis 98.2 degF Temperature Post -Dialysis 97.5 degF January 22, 2024 In-Center Hemodialysis Treatment 1035-81-76H83:31:00.000Z 4692-59-29W28:07:29.000Z BP Sitting (Pre-Dialysis) 133/58 mmHg BP Sitting (Post-Dialysis) 144/67 mmHg Concurrent Access: falseAV Fistula Upper Arm (Right) Arterial Sitting Heart Rate Pre-Dialysis 55 BPM Sitting H eart Rate Post-Dialysis 61 BPM Temperature Pre-Dialysis 97.7 degF Temperature Post -Dialysis 97.4 degF January 20, 2024 In-Center Hemodialysis Treatment 6879-02-79J41:29:19.000Z 0778-89-10B16:59:19.000Z BP Sitting (Pre-Dialysis) 150/69 mmHg BP Sitting (Post-Dialysis) 167/75 mmHg Concurrent Access: falseAV Fistula Upper Arm (Right) Arterial Sitting Heart Rate Pre-Dialysis 50 BPM Sitting H eart Rate Post-Dialysis 58 BPM Temperature Pre-Dialysis 98.2 degF Temperature Post -Dialysis 97.6 degF January 08, 2024 In-Center Hemodialysis Treatment 7081-49-64I75:14:01.000Z 9293-43-57A99:21:06.000Z BP Sitting (Pre-Dialysis) 158/77 mmHg BP Sitting (Post-Dialysis) 132/60 mmHg Concurrent Access: falseAV Fistula Upper Arm (Right) Arterial Sitting Heart Rate Pre-Dialysis 62 BPM Sitting H eart Rate Post-Dialysis 64 BPM Temperature Pre-Dialysis 98.1 degF Temperature Post -Dialysis 97.4 degF January 06, 2024 In-Center Hemodialysis Treatment 9397-82-92H57:54:24.000Z 5008-50-07I08:23:59.000Z BP Sitting (Pre-Dialysis) 174/74 mmHg BP Sitting (Post-Dialysis) 146/71 mmHg Concurrent Access: falseAV Fistula Upper Arm (Right) Arterial Sitting Heart Rate Pre-Dialysis 54 BPM Sitting H eart Rate Post-Dialysis 59 BPM Temperature Pre-Dialysis 97.6 degF Temperature Post -Dialysis 97.7 degF January 03, 2024 In-Center Hemodialysis Treatment 5036-81-30I52:12:00.000Z 9023-17-65V71:29:55.000Z BP Sitting (Pre-Dialysis) 153/75 mmHg BP Sitting (Post-Dialysis) 143/66 mmHg Concurrent Access: falseAV Fistula Upper Arm (Right) Arterial Sitting Heart Rate Pre-Dialysis 64 BPM Sitting H eart Rate Post-Dialysis 60 BPM Temperature Pre-Dialysis 97.9 degF Temperature Post -Dialysis 98 degF January 01, 2024 In-Center Hemodialysis Treatment 9649-97-60B12:45:03.000Z 9472-23-02K33:14:38.000Z BP Sitting (Pre-Dialysis) 131/64 mmHg BP Sitting (Post-Dialysis) 134/58 mmHg Concurrent Access: falseAV Fistula Upper Arm (Right) Arterial Sitting Heart Rate Pre-Dialysis 61 BPM Sitting H eart Rate Post-Dialysis 57 BPM Temperature Pre-Dialysis 97.6 degF Temperature Post -Dialysis 97.3 degF December 30, 2023 In-Center Hemodialysis Treatment 9231-08-16L26:38:00.000Z 4383-16-97L38:08:47.000Z BP Sitting (Pre-Dialysis) 139/64 mmHg BP Sitting (Post-Dialysis) 102/53 mmHg Concurrent Access: falseAV Fistula Upper Arm (Right) Arterial Sitting Heart Rate Pre-Dialysis 50 BPM Sitting H eart Rate Post-Dialysis 48 BPM Temperature Pre-Dialysis 97.6 degF Temperature Post -Dialysis 97.1 degF December 27, 2023 In-Center Hemodialysis Treatment 7081-21-88N86:40:00.000Z 9695-11-94F32:11:28.000Z BP Sitting (Pre-Dialysis) 157/59 mmHg BP Sitting (Post-Dialysis) 132/56 mmHg Concurrent Access: falseAV Fistula Upper Arm (Right) Arterial Sitting Heart Rate Pre-Dialysis 69 BPM Sitting H eart Rate Post-Dialysis 48 BPM Temperature Pre-Dialysis 98.2 degF Temperature Post -Dialysis 98.3 degF December 25, 2023 In-Center Hemodialysis Treatment 7649-14-62O05:42:06.000Z 9591-44-53R86:15:47.000Z BP Sitting (Pre-Dialysis) 144/81 mmHg BP Sitting (Post-Dialysis) 137/64 mmHg Concurrent Access: falseAV Fistula Upper Arm (Right) Arterial Sitting Heart Rate Pre-Dialysis 66 BPM Sitting H eart Rate Post-Dialysis 58 BPM Temperature Pre-Dialysis 97.5 degF Temperature Post -Dialysis 97.6 degF December 23, 2023 In-Center Hemodialysis Treatment 3705-51-84M46:51:28.000Z 8753-31-11U24:08:58.000Z BP Sitting (Pre-Dialysis) 151/82 mmHg BP Sitting (Post-Dialysis) 142/78 mmHg Concurrent Access: falseAV Fistula Upper Arm (Right) Arterial Sitting Heart Rate Pre-Dialysis 61 BPM Sitting H eart Rate Post-Dialysis 59 BPM Temperature Pre-Dialysis 97.9 degF Temperature Post -Dialysis 97 degF December 20, 2023 In-Center Hemodialysis Treatment 3920-01-38D61:31:19.000Z 8527-51-16W06:07:59.000Z BP Sitting (Pre-Dialysis) 175/86 mmHg BP Sitting (Post-Dialysis) 166/58 mmHg Concurrent Access: falseAV Fistula Upper Arm (Right) Arterial Sitting Heart Rate Pre-Dialysis 76 BPM Sitting H eart Rate Post-Dialysis 60 BPM Temperature Pre-Dialysis 98.1 degF Temperature Post -Dialysis 97.1 degF December 18, 2023 In-Center Hemodialysis Treatment 9965-71-57A16:26:00.000Z 4790-55-60R11:26:35.000Z BP Sitting (Pre-Dialysis) 152/86 mmHg BP Sitting (Post-Dialysis) 151/75 mmHg Concurrent Access: falseAV Fistula Upper Arm (Right) Arterial Sitting Heart Rate Pre-Dialysis 64 BPM Sitting H eart Rate Post-Dialysis 63 BPM Temperature Pre-Dialysis 98.2 degF Temperature Post -Dialysis 97.3 degF December 16, 2023 In-Center Hemodialysis Treatment 4798-41-12Q52:07:00.000Z 0119-87-45A57:13:24.000Z BP Sitting (Pre-Dialysis) 146/73 mmHg BP Sitting (Post-Dialysis) 135/61 mmHg Concurrent Access: falseAV Fistula Upper Arm (Right) Arterial Sitting Heart Rate Pre-Dialysis 60 BPM Sitting H eart Rate Post-Dialysis 83 BPM Temperature Pre-Dialysis 98.8 degF Temperature Post -Dialysis 97.2 degF December 13, 2023 In-Center Hemodialysis Treatment 7234-03-51S35:55:00.000Z 9058-07-99F21:45:00.000Z BP Sitting (Pre-Dialysis) 156/68 mmHg BP Sitting (Post-Dialysis) 150/76 mmHg Concurrent Access: falseAV Fistula Upper Arm (Right) Arterial Sitting Heart Rate Pre-Dialysis 62 BPM Sitting H eart Rate Post-Dialysis 60 BPM Temperature Pre-Dialysis 98.2 degF Temperature Post -Dialysis 98.4 degF December 11, 2023 In-Center Hemodialysis Treatment 5413-05-84E30:55:00.000Z 0988-15-02M51:21:52.000Z BP Sitting (Pre-Dialysis) 143/76 mmHg BP Sitting (Post-Dialysis) 138/69 mmHg Concurrent Access: falseAV Fistula Upper Arm (Right) Arterial Sitting Heart Rate Pre-Dialysis 60 BPM Sitting H eart Rate Post-Dialysis 64 BPM Temperature Pre-Dialysis 98 degF Temperature Post -Dialysis 98.1 degF December 09, 2023 In-Center Hemodialysis Treatment 0080-16-16A05:45:00.000Z 9718-75-70C43:32:18.000Z BP Sitting (Pre-Dialysis) 153/81 mmHg BP Sitting (Post-Dialysis) 136/65 mmHg Concurrent Access: falseAV Fistula Upper Arm (Right) Arterial Sitting Heart Rate Pre-Dialysis 54 BPM Sitting H eart Rate Post-Dialysis 57 BPM Temperature Pre-Dialysis 97.1 degF Temperature Post -Dialysis 97.6 degF December 06, 2023 In-Center Hemodialysis Treatment 9420-54-43W78:43:53.000Z 8507-85-67B61:14:18.000Z BP Sitting (Pre-Dialysis) 142/72 mmHg BP Sitting (Post-Dialysis) 123/54 mmHg Concurrent Access: falseAV Fistula Upper Arm (Right) Arterial Sitting Heart Rate Pre-Dialysis 64 BPM Sitting H eart Rate Post-Dialysis 60 BPM Temperature Pre-Dialysis 98 degF Temperature Post -Dialysis 98.1 degF December 04, 2023 In-Center Hemodialysis Treatment 5256-94-31W93:14:50.000Z 9401-11-54R07:23:35.000Z BP Sitting (Pre-Dialysis) 151/77 mmHg BP Sitting (Post-Dialysis) 121/62 mmHg Concurrent Access: falseAV Fistula Upper Arm (Right) Arterial Sitting Heart Rate Pre-Dialysis 50 BPM Sitting H eart Rate Post-Dialysis 58 BPM Temperature Pre-Dialysis 97.5 degF Temperature Post -Dialysis 98 degF November 27, 2023 In-Center Hemodialysis Treatment 6981-64-00U52:24:00.000Z 8542-61-22F93:24:04.000Z BP Sitting (Pre-Dialysis) 127/64 mmHg BP Sitting (Post-Dialysis) 133/58 mmHg Concurrent Access: falseAV Fistula Upper Arm (Right) Arterial Sitting Heart Rate Pre-Dialysis 61 BPM Sitting H eart Rate Post-Dialysis 57 BPM Temperature Pre-Dialysis 97.5 degF Temperature Post -Dialysis 98 degF November 25, 2023 In-Center Hemodialysis Treatment 0261-80-59A71:58:39.000Z 0195-13-16B36:28:39.000Z BP Sitting (Pre-Dialysis) 167/82 mmHg BP Sitting (Post-Dialysis) 130/75 mmHg Concurrent Access: falseAV Fistula Upper Arm (Right) Arterial Sitting Heart Rate Pre-Dialysis 75 BPM Sitting H eart Rate Post-Dialysis 82 BPM Temperature Pre-Dialysis 97.9 degF Temperature Post -Dialysis 98 degF November 22, 2023 In-Center Hemodialysis Treatment 6821-06-51X90:47:54.000Z 4677-57-44L89:24:34.000Z BP Sitting (Pre-Dialysis) 141/61 mmHg BP Sitting (Post-Dialysis) 135/66 mmHg Concurrent Access: falseAV Fistula Upper Arm (Right) Arterial Sitting Heart Rate Pre-Dialysis 65 BPM Sitting H eart Rate Post-Dialysis 67 BPM Temperature Pre-Dialysis 97.8 degF Temperature Post -Dialysis 97.9 degF November 20, 2023 In-Center Hemodialysis Treatment 3786-43-06E78:57:59.000Z 3161-72-84Z85:27:59.000Z BP Sitting (Pre-Dialysis) 135/66 mmHg BP Sitting (Post-Dialysis) 144/68 mmHg Concurrent Access: falseAV Fistula Upper Arm (Right) Arterial Sitting Heart Rate Pre-Dialysis 60 BPM Sitting H eart Rate Post-Dialysis 62 BPM Temperature Pre-Dialysis 97.7 degF Temperature Post -Dialysis 97.2 degF November 18, 2023 In-Center Hemodialysis Treatment 9497-29-54J65:54:50.000Z 9037-86-39G82:24:50.000Z BP Sitting (Pre-Dialysis) 125/60 mmHg BP Sitting (Post-Dialysis) 129/67 mmHg Concurrent Access: falseAV Fistula Upper Arm (Right) Arterial Sitting Heart Rate Pre-Dialysis 52 BPM Sitting H eart Rate Post-Dialysis 60 BPM Temperature Pre-Dialysis 98 degF Temperature Post -Dialysis 97.6 degF November 15, 2023 In-Center Hemodialysis Treatment 2728-41-30N79:05:38.000Z 8805-85-15U07:17:18.000Z BP Sitting (Pre-Dialysis) 149/69 mmHg BP Sitting (Post-Dialysis) 143/71 mmHg Concurrent Access: falseAV Fistula Upper Arm (Right) Arterial Sitting Heart Rate Pre-Dialysis 66 BPM Sitting H eart Rate Post-Dialysis 62 BPM Temperature Pre-Dialysis 98 degF Temperature Post -Dialysis 97.7 degF November 13, 2023 In-Center Hemodialysis Treatment 4898-31-47M69:27:10.000Z 3953-11-56A77:17:10.000Z BP Sitting (Pre-Dialysis) 123/63 mmHg BP Sitting (Post-Dialysis) 132/64 mmHg Concurrent Access: falseAV Fistula Upper Arm (Right) Arterial Sitting Heart Rate Pre-Dialysis 69 BPM Sitting H eart Rate Post-Dialysis 61 BPM Temperature Pre-Dialysis 98.3 degF Temperature Post -Dialysis 97.6 degF November 11, 2023 In-Center Hemodialysis Treatment 6140-59-18G05:20:00.000Z 1128-29-09Y38:28:47.000Z BP Sitting (Pre-Dialysis) 139/62 mmHg BP Sitting (Post-Dialysis) 110/53 mmHg Concurrent Access: falseAV Fistula Upper Arm (Right) Arterial Sitting Heart Rate Pre-Dialysis 55 BPM Sitting H eart Rate Post-Dialysis 62 BPM Temperature Pre-Dialysis 98 degF November 08, 2023 In-Center Hemodialysis Treatment 4909-22-40A06:44:00.000Z 4480-54-89Z40:17:20.000Z BP Sitting (Pre-Dialysis) 143/67 mmHg BP Sitting (Post-Dialysis) 141/68 mmHg Concurrent Access: falseAV Fistula Upper Arm (Right) Arterial Sitting Heart Rate Pre-Dialysis 63 BPM Sitting H eart Rate Post-Dialysis 63 BPM Temperature Pre-Dialysis 97.1 degF Temperature Post -Dialysis 97 degF November 06, 2023 In-Center Hemodialysis Treatment 1737-60-02O50:03:00.000Z 5672-47-71K98:31:30.000Z BP Sitting (Pre-Dialysis) 129/58 mmHg BP Sitting (Post-Dialysis) 118/58 mmHg Concurrent Access: falseAV Fistula Upper Arm (Right) Arterial Sitting Heart Rate Pre-Dialysis 48 BPM Sitting H eart Rate Post-Dialysis 58 BPM Temperature Pre-Dialysis 97.4 degF Temperature Post -Dialysis 98.3 degF November 04, 2023 In-Center Hemodialysis Treatment 1264-96-42H23:34:49.000Z 1552-00-77W93:01:54.000Z BP Sitting (Pre-Dialysis) 155/79 mmHg BP Sitting (Post-Dialysis) 134/61 mmHg Concurrent Access: falseAV Fistula Upper Arm (Right) Arterial Sitting Heart Rate Pre-Dialysis 65 BPM Sitting H eart Rate Post-Dialysis 64 BPM Temperature Pre-Dialysis 98.2 degF Temperature Post -Dialysis 97.2 degF October 28, 2023 In-Center Hemodialysis Treatment 2647-20-98L16:19:00.000Z 0841-91-64A34:07:38.000Z BP Sitting (Pre-Dialysis) 166/78 mmHg BP Sitting (Post-Dialysis) 147/70 mmHg Concurrent Access: falseAV Fistula Upper Arm (Right) Arterial Sitting Heart Rate Pre-Dialysis 67 BPM Sitting H eart Rate Post-Dialysis 66 BPM Temperature Pre-Dialysis 97.7 degF Temperature Post -Dialysis 98 degF October 25, 2023 In-Center Hemodialysis Treatment 5588-50-02F65:26:46.000Z 4324-21-90S34:17:11.000Z BP Sitting (Pre-Dialysis) 154/69 mmHg BP Sitting (Post-Dialysis) 141/61 mmHg Concurrent Access: falseAV Fistula Upper Arm (Right) Arterial Sitting Heart Rate Pre-Dialysis 61 BPM Sitting H eart Rate Post-Dialysis 60 BPM Temperature Pre-Dialysis 98.2 degF Temperature Post -Dialysis 98 degF October 18, 2023 In-Center Hemodialysis Treatment 4653-71-01D49:38:00.000Z 0012-85-02L85:43:08.000Z BP Sitting (Pre-Dialysis) 145/70 mmHg BP Sitting (Post-Dialysis) 131/62 mmHg Concurrent Access: falseAV Fistula Upper Arm (Right) Arterial Sitting Heart Rate Pre-Dialysis 58 BPM Sitting H eart Rate Post-Dialysis 59 BPM Temperature Pre-Dialysis 97.3 degF Temperature Post -Dialysis 97.5 degF October 16, 2023 In-Center Hemodialysis Treatment 5367-33-03Q63:45:00.000Z 1650-08-42O49:21:33.000Z BP Sitting (Pre-Dialysis) 130/63 mmHg BP Sitting (Post-Dialysis) 148/67 mmHg Concurrent Access: falseAV Fistula Upper Arm (Right) Arterial Sitting Heart Rate Pre-Dialysis 54 BPM Sitting H eart Rate Post-Dialysis 51 BPM Temperature Pre-Dialysis 97.7 degF Temperature Post -Dialysis 97.3 degF October 14, 2023 In-Center Hemodialysis Treatment 9756-91-18C12:48:03.000Z 3845-09-33I05:18:28.000Z BP Sitting (Pre-Dialysis) 129/65 mmHg BP Sitting (Post-Dialysis) 143/62 mmHg Concurrent Access: falseAV Fistula Upper Arm (Right) Arterial Sitting Heart Rate Pre-Dialysis 61 BPM Sitting H eart Rate Post-Dialysis 50 BPM Temperature Pre-Dialysis 97.6 degF Temperature Post -Dialysis 97.2 degF October 11, 2023 In-Center Hemodialysis Treatment 4598-02-12J51:45:10.000Z 7724-21-63B36:23:30.000Z BP Sitting (Pre-Dialysis) 134/62 mmHg BP Sitting (Post-Dialysis) 124/60 mmHg Concurrent Access: falseAV Fistula Upper Arm (Right) Arterial Sitting Heart Rate Pre-Dialysis 53 BPM Sitting H eart Rate Post-Dialysis 59 BPM Temperature Pre-Dialysis 97.7 degF Temperature Post -Dialysis 97.2 degF October 09, 2023 In-Center Hemodialysis Treatment 4080-60-04E86:39:00.000Z 9933-96-29S02:16:15.000Z BP Sitting (Pre-Dialysis) 140/66 mmHg BP Sitting (Post-Dialysis) 144/59 mmHg Concurrent Access: falseAV Fistula Upper Arm (Right) Arterial Sitting Heart Rate Pre-Dialysis 66 BPM Sitting H eart Rate Post-Dialysis 62 BPM Temperature Pre-Dialysis 98.4 degF Temperature Post -Dialysis 97.4 degF October 07, 2023 In-Center Hemodialysis Treatment 7696-27-77K84:54:09.000Z 0445-82-58Z11:24:34.000Z BP Sitting (Pre-Dialysis) 141/66 mmHg BP Sitting (Post-Dialysis) 143/66 mmHg Concurrent Access: falseAV Fistula Upper Arm (Right) Arterial Sitting Heart Rate Pre-Dialysis 53 BPM Sitting H eart Rate Post-Dialysis 43 BPM Temperature Pre-Dialysis 97.2 degF Temperature Post -Dialysis 97.5 degF October 04, 2023 In-Center Hemodialysis Treatment 7743-50-14N22:07:00.000Z 1911-65-16C56:39:20.000Z BP Sitting (Pre-Dialysis) 151/71 mmHg BP Sitting (Post-Dialysis) 118/48 mmHg Concurrent Access: falseAV Fistula Upper Arm (Right) Arterial Sitting Heart Rate Pre-Dialysis 61 BPM Sitting H eart Rate Post-Dialysis 65 BPM Temperature Pre-Dialysis 98.1 degF Temperature Post -Dialysis 98.1 degF September 30, 2023 In-Center Hemodialysis Treatment 6015-25-71Q45:48:14.000Z 4273-41-49D12:20:44.000Z BP Sitting (Pre-Dialysis) 119/45 mmHg BP Sitting (Post-Dialysis) 160/66 mmHg Concurrent Access: falseAV Fistula Upper Arm (Right) Arterial Sitting Heart Rate Pre-Dialysis 56 BPM Sitting H eart Rate Post-Dialysis 59 BPM Temperature Pre-Dialysis 98.4 degF Temperature Post -Dialysis 98.1 degF September 27, 2023 In-Center Hemodialysis Treatment 2879-76-14U71:29:31.000Z 0296-37-61R62:00:21.000Z BP Sitting (Pre-Dialysis) 138/58 mmHg BP Sitting (Post-Dialysis) 130/60 mmHg Concurrent Access: falseAV Fistula Upper Arm (Right) Arterial Sitting Heart Rate Pre-Dialysis 64 BPM Sitting H eart Rate Post-Dialysis 58 BPM Temperature Pre-Dialysis 97.7 degF Temperature Post -Dialysis 97.3 degF September 25, 2023 In-Center Hemodialysis Treatment 7008-36-98D42:46:26.000Z 2997-39-97A11:16:51.000Z BP Sitting (Pre-Dialysis) 133/70 mmHg BP Sitting (Post-Dialysis) 135/62 mmHg Concurrent Access: falseAV Fistula Upper Arm (Right) Arterial Sitting Heart Rate Pre-Dialysis 56 BPM Sitting H eart Rate Post-Dialysis 54 BPM Temperature Pre-Dialysis 97.3 degF Temperature Post -Dialysis 97.9 degF September 16, 2023 In-Center Hemodialysis Treatment 4571-30-48N94:27:26.000Z 1661-03-25L36:57:26.000Z BP Sitting (Pre-Dialysis) 167/77 mmHg BP Sitting (Post-Dialysis) 182/84 mmHg Concurrent Access: falseAV Fistula Upper Arm (Right) Arterial Sitting Heart Rate Pre-Dialysis 66 BPM Sitting H eart Rate Post-Dialysis 53 BPM Temperature Pre-Dialysis 98.3 degF Temperature Post -Dialysis 97.3 degF September 13, 2023 In-Center Hemodialysis Treatment 9558-13-05K81:24:08.000Z 1467-43-95Y64:54:33.000Z BP Sitting (Pre-Dialysis) 144/76 mmHg BP Sitting (Post-Dialysis) 145/66 mmHg Concurrent Access: falseAV Fistula Upper Arm (Right) Arterial Sitting Heart Rate Pre-Dialysis 66 BPM Sitting H eart Rate Post-Dialysis 59 BPM Temperature Pre-Dialysis 98 degF Temperature Post -Dialysis 97.3 degF September 11, 2023 In-Center Hemodialysis Treatment 2780-03-39I18:27:25.000Z 1910-82-64L52:57:26.000Z BP Sitting (Pre-Dialysis) 147/70 mmHg BP Sitting (Post-Dialysis) 142/86 mmHg Concurrent Access: falseAV Fistula Upper Arm (Right) Arterial Sitting Heart Rate Pre-Dialysis 60 BPM Sitting H eart Rate Post-Dialysis 82 BPM Temperature Pre-Dialysis 97.4 degF Temperature Post -Dialysis 98.2 degF September 09, 2023 In-Center Hemodialysis Treatment 4984-18-23F52:31:00.000Z 7072-37-40C46:05:34.000Z BP Sitting (Pre-Dialysis) 158/76 mmHg BP Sitting (Post-Dialysis) 170/78 mmHg Concurrent Access: falseAV Fistula Upper Arm (Right) Arterial Sitting Heart Rate Pre-Dialysis 55 BPM Sitting H eart Rate Post-Dialysis 58 BPM Temperature Pre-Dialysis 97.3 degF Temperature Post -Dialysis 97.8 degF September 06, 2023 In-Center Hemodialysis Treatment 4138-10-96W65:50:10.000Z 5531-21-11P61:17:40.000Z BP Sitting (Pre-Dialysis) 133/64 mmHg BP Sitting (Post-Dialysis) 105/50 mmHg Concurrent Access: falseAV Fistula Upper Arm (Right) Arterial Sitting Heart Rate Pre-Dialysis 46 BPM Sitting H eart Rate Post-Dialysis 59 BPM Temperature Pre-Dialysis 98 degF Temperature Post -Dialysis 98.2 degF September 04, 2023 In-Center Hemodialysis Treatment 2589-80-01N57:48:00.000Z 1485-39-07G76:20:21.000Z BP Sitting (Pre-Dialysis) 155/81 mmHg BP Sitting (Post-Dialysis) 152/70 mmHg Concurrent Access: falseAV Fistula Upper Arm (Right) Arterial Sitting Heart Rate Pre-Dialysis 54 BPM Sitting H eart Rate Post-Dialysis 67 BPM Temperature Pre-Dialysis 97.8 degF Temperature Post -Dialysis 97.7 degF September 01, 2023 In-Center Hemodialysis Treatment 5368-45-46T83:43:00.000Z 5437-26-03J74:16:54.000Z BP Sitting (Pre-Dialysis) 158/71 mmHg BP Sitting (Post-Dialysis) 159/78 mmHg Concurrent Access: falseAV Fistula Upper Arm (Right) Arterial Sitting Heart Rate Pre-Dialysis 60 BPM Sitting H eart Rate Post-Dialysis 60 BPM Temperature Pre-Dialysis 97.4 degF Temperature Post -Dialysis 97.8 degF August 28, 2023 In-Center Hemodialysis Treatment 7321-71-06X16:31:00.000Z 3202-57-40S70:05:56.000Z BP Sitting (Pre-Dialysis) 141/69 mmHg BP Sitting (Post-Dialysis) 127/59 mmHg Concurrent Access: falseAV Fistula Upper Arm (Right) Arterial Sitting Heart Rate Pre-Dialysis 58 BPM Sitting H eart Rate Post-Dialysis 53 BPM Temperature Pre-Dialysis 97.7 degF Temperature Post -Dialysis 97.3 degF August 25, 2023 In-Center Hemodialysis Treatment 8006-09-29F62:01:31.000Z 6985-72-11J71:34:51.000Z BP Sitting (Pre-Dialysis) 137/70 mmHg BP Sitting (Post-Dialysis) 124/64 mmHg Concurrent Access: falseAV Fistula Upper Arm (Right) Arterial Sitting Heart Rate Pre-Dialysis 70 BPM Sitting H eart Rate Post-Dialysis 67 BPM Temperature Pre-Dialysis 97.3 degF Temperature Post -Dialysis 98.4 degF August 23, 2023 In-Center Hemodialysis Treatment 2442-09-01U34:34:00.000Z 7761-36-46L90:04:49.000Z BP Sitting (Pre-Dialysis) 157/77 mmHg BP Sitting (Post-Dialysis) 131/63 mmHg Concurrent Access: falseAV Fistula Upper Arm (Right) Arterial Sitting Heart Rate Pre-Dialysis 68 BPM Sitting H eart Rate Post-Dialysis 65 BPM Temperature Pre-Dialysis 97.8 degF Temperature Post -Dialysis 98.6 degF August 21, 2023 In-Center Hemodialysis Treatment 6090-16-68I94:41:00.000Z 5624-62-74G69:12:16.000Z BP Sitting (Pre-Dialysis) 129/60 mmHg BP Sitting (Post-Dialysis) 154/73 mmHg Concurrent Access: falseAV Fistula Upper Arm (Right) Arterial Sitting Heart Rate Pre-Dialysis 53 BPM Sitting H eart Rate Post-Dialysis 68 BPM Temperature Pre-Dialysis 98.4 degF Temperature Post -Dialysis 98.2 degF August 19, 2023 In-Center Hemodialysis Treatment 6726-64-30Z61:36:44.000Z 5784-39-03C86:55:04.000Z BP Sitting (Pre-Dialysis) 132/72 mmHg BP Sitting (Post-Dialysis) 145/72 mmHg Concurrent Access: falseAV Fistula Upper Arm (Right) Arterial Sitting Heart Rate Pre-Dialysis 69 BPM Sitting H eart Rate Post-Dialysis 63 BPM Temperature Pre-Dialysis 97.2 degF Temperature Post -Dialysis 97.6 degF August 14, 2023 In-Center Hemodialysis Treatment 0177-38-06T34:24:00.000Z 4651-15-31G90:55:47.000Z BP Sitting (Pre-Dialysis) 140/75 mmHg BP Sitting (Post-Dialysis) 130/69 mmHg Concurrent Access: falseAV Fistula Upper Arm (Right) Arterial Sitting Heart Rate Pre-Dialysis 55 BPM Sitting H eart Rate Post-Dialysis 66 BPM Temperature Pre-Dialysis 98.4 degF Temperature Post -Dialysis 97.8 degF August 12, 2023 In-Center Hemodialysis Treatment 2586-05-28W97:27:00.000Z 1352-68-30M79:58:14.000Z BP Sitting (Pre-Dialysis) 154/77 mmHg BP Sitting (Post-Dialysis) 156/92 mmHg Concurrent Access: falseAV Fistula Upper Arm (Right) Arterial Sitting Heart Rate Pre-Dialysis 63 BPM Sitting H eart Rate Post-Dialysis 61 BPM Temperature Pre-Dialysis 98.2 degF August 09, 2023 In-Center Hemodialysis Treatment 9188-01-98J54:24:21.000Z 4799-50-53R95:53:56.000Z BP Sitting (Pre-Dialysis) 128/64 mmHg BP Sitting (Post-Dialysis) 168/67 mmHg Concurrent Access: falseAV Fistula Upper Arm (Right) Arterial Sitting Heart Rate Pre-Dialysis 65 BPM Sitting H eart Rate Post-Dialysis 62 BPM Temperature Pre-Dialysis 98 degF Temperature Post -Dialysis 98.1 degF August 07, 2023 In-Center Hemodialysis Treatment 8683-46-08S12:35:25.000Z 6493-01-35S68:05:25.000Z BP Sitting (Pre-Dialysis) 164/75 mmHg BP Sitting (Post-Dialysis) 170/75 mmHg Concurrent Access: falseAV Fistula Upper Arm (Right) Arterial Sitting Heart Rate Pre-Dialysis 62 BPM Sitting H eart Rate Post-Dialysis 65 BPM Temperature Pre-Dialysis 98.2 degF Temperature Post -Dialysis 98.2 degF August 05, 2023 In-Center Hemodialysis Treatment 5224-54-56J29:48:00.000Z 4405-04-79I51:19:21.000Z BP Sitting (Pre-Dialysis) 165/83 mmHg BP Sitting (Post-Dialysis) 166/82 mmHg Concurrent Access: falseAV Fistula Upper Arm (Right) Arterial Sitting Heart Rate Pre-Dialysis 62 BPM Sitting H eart Rate Post-Dialysis 64 BPM Temperature Pre-Dialysis 98.4 degF Temperature Post -Dialysis 97.2 degF August 02, 2023 In-Center Hemodialysis Treatment 2880-98-03P05:42:48.000Z 3964-53-55M12:12:23.000Z BP Sitting (Pre-Dialysis) 163/82 mmHg BP Sitting (Post-Dialysis) 162/67 mmHg Concurrent Access: falseAV Fistula Upper Arm (Right) Arterial Sitting Heart Rate Pre-Dialysis 60 BPM Sitting H eart Rate Post-Dialysis 60 BPM Temperature Pre-Dialysis 98.4 degF Temperature Post -Dialysis 98.4 degF July 31, 2023 In-Center Hemodialysis Treatment 7275-48-39I29:17:35.000Z 7368-17-23A69:47:35.000Z BP Sitting (Pre-Dialysis) 152/76 mmHg BP Sitting (Post-Dialysis) 158/73 mmHg Concurrent Access: falseAV Fistula Upper Arm (Right) Arterial Sitting Heart Rate Pre-Dialysis 67 BPM Sitting H eart Rate Post-Dialysis 59 BPM Temperature Pre-Dialysis 98.2 degF Temperature Post -Dialysis 97.9 degF July 29, 2023 In-Center Hemodialysis Treatment 9990-04-46H74:31:12.000Z 1707-02-15N57:00:47.000Z BP Sitting (Pre-Dialysis) 147/73 mmHg BP Sitting (Post-Dialysis) 161/79 mmHg Concurrent Access: falseAV Fistula Upper Arm (Right) Arterial Sitting Heart Rate Pre-Dialysis 71 BPM Sitting H eart Rate Post-Dialysis 56 BPM Temperature Pre-Dialysis 98.4 degF Temperature Post -Dialysis 97.4 degF July 26, 2023 In-Center Hemodialysis Treatment 4971-77-84R37:22:00.000Z 9738-63-96E81:16:40.000Z BP Sitting (Pre-Dialysis) 155/72 mmHg BP Sitting (Post-Dialysis) 145/73 mmHg Concurrent Access: falseAV Fistula Upper Arm (Right) Arterial Sitting Heart Rate Pre-Dialysis 79 BPM Sitting H eart Rate Post-Dialysis 65 BPM Temperature Pre-Dialysis 98 degF Temperature Post -Dialysis 97.2 degF July 23, 2023 In-Center Hemodialysis Treatment 5544-40-11L60:20:00.000Z 0346-53-67M78:15:54.000Z BP Sitting (Pre-Dialysis) 152/78 mmHg BP Sitting [...] degF July 17, 2023 In-Center Hemodialysis Treatment 5409-13-19Q13:36:48.000Z 1514-29-05S20:21:23.000Z BP Sitting (Pre-Dialysis) 178/89 mmHg BP Sitting (Post-Dialysis) 182/84 mmHg Concurrent Access: falseAV Fistula Upper Arm (Right) Arterial Sitting Heart Rate Pre-Dialysis 59 BPM Sitting H eart Rate Post-Dialysis 64 BPM Temperature Pre-Dialysis 98.1 degF Temperature Post -Dialysis 98.2 degF July 15, 2023 In-Center Hemodialysis Treatment 3363-41-07Q30:47:35.000Z 8911-17-74F26:17:35.000Z BP Sitting (Pre-Dialysis) 177/78 mmHg BP Sitting (Post-Dialysis) 191/82 mmHg Concurrent Access: falseAV Fistula Upper Arm (Right) Arterial Sitting Heart Rate Pre-Dialysis 57 BPM Sitting H eart Rate Post-Dialysis 62 BPM Temperature Pre-Dialysis 98.2 degF Temperature Post -Dialysis 97.4 degF July 08, 2023 In-Center Hemodialysis Treatment 9894-12-24I74:24:00.000Z 0276-11-85S91:00:05.000Z BP Sitting (Pre-Dialysis) 138/69 mmHg BP Sitting (Post-Dialysis) 149/65 mmHg Concurrent Access: falseAV Fistula Upper Arm (Right) Arterial Sitting Heart Rate Pre-Dialysis 51 BPM Sitting H eart Rate Post-Dialysis 57 BPM Temperature Pre-Dialysis 98 degF Temperature Post -Dialysis 98 degF July 05, 2023 In-Center Hemodialysis Treatment 4009-98-27K76:35:25.000Z 1722-83-19M56:05:50.000Z BP Sitting (Pre-Dialysis) 147/67 mmHg BP Sitting (Post-Dialysis) 158/75 mmHg Concurrent Access: falseAV Fistula Upper Arm (Right) Arterial Sitting Heart Rate Pre-Dialysis 51 BPM Sitting H eart Rate Post-Dialysis 49 BPM Temperature Pre-Dialysis 98.6 degF Temperature Post -Dialysis 97.6 degF July 01, 2023 In-Center Hemodialysis Treatment 8138-02-39R68:49:00.000Z 8509-66-82X81:19:00.000Z BP Sitting (Pre-Dialysis) 166/67 mmHg BP Sitting (Post-Dialysis) 144/65 mmHg Concurrent Access: falseAV Fistula Upper Arm (Right) Arterial Sitting Heart Rate Pre-Dialysis 61 BPM Sitting H eart Rate Post-Dialysis 64 BPM Temperature Pre-Dialysis 98.3 degF Temperature Post -Dialysis 98.1 degF June 28, 2023 In-Center Hemodialysis Treatment 0118-26-35J57:53:27.000Z 9599-65-66O87:27:12.000Z BP Sitting (Pre-Dialysis) 147/72 mmHg BP Sitting (Post-Dialysis) 144/76 mmHg Concurrent Access: falseAV Fistula Upper Arm (Right) Arterial Sitting Heart Rate Pre-Dialysis 65 BPM Sitting H eart Rate Post-Dialysis 64 BPM Temperature Pre-Dialysis 97.6 degF Temperature Post -Dialysis 97.2 degF June 24, 2023 In-Center Hemodialysis Treatment 1977-86-84G66:08:00.000Z 8346-59-39L09:48:02.000Z BP Sitting (Pre-Dialysis) 153/81 mmHg BP Sitting (Post-Dialysis) 183/46 mmHg Concurrent Access: falseAV Fistula Upper Arm (Right) Arterial Sitting Heart Rate Pre-Dialysis 66 BPM Sitting H eart Rate Post-Dialysis 60 BPM Temperature Pre-Dialysis 97.5 degF Temperature Post -Dialysis 98.3 degF June 21, 2023 In-Center Hemodialysis Treatment 1683-29-80X15:36:19.000Z 2746-14-41Q71:06:44.000Z BP Sitting (Pre-Dialysis) 139/75 mmHg BP Sitting (Post-Dialysis) 158/71 mmHg Concurrent Access: falseAV Fistula Upper Arm (Right) Arterial Sitting Heart Rate Pre-Dialysis 75 BPM Sitting H eart Rate Post-Dialysis 63 BPM Temperature Pre-Dialysis 97.2 degF Temperature Post -Dialysis 98.4 degF June 17, 2023 In-Center Hemodialysis Treatment 6960-44-25P21:24:00.000Z 0005-04-28H25:53:57.000Z BP Sitting (Pre-Dialysis) 149/61 mmHg BP Sitting (Post-Dialysis) 143/67 mmHg Concurrent Access: falseAV Fistula Upper Arm (Right) Arterial Sitting Heart Rate Pre-Dialysis 61 BPM Sitting H eart Rate Post-Dialysis 71 BPM Temperature Pre-Dialysis 98.2 degF Temperature Post -Dialysis 97.8 degF June 14, 2023 In-Center Hemodialysis Treatment 5263-18-03D31:32:20.000Z 6838-00-04I58:02:20.000Z BP Sitting (Pre-Dialysis) 135/73 mmHg BP Sitting (Post-Dialysis) 128/72 mmHg Concurrent Access: falseAV Fistula Upper Arm (Right) Arterial Sitting Heart Rate Pre-Dialysis 75 BPM Sitting H eart Rate Post-Dialysis 59 BPM Temperature Pre-Dialysis 97.6 degF Temperature Post -Dialysis 96.3 degF June 12, 2023 In-Center Hemodialysis Treatment 3357-70-17J86:27:36.000Z 1358-94-01H35:01:22.000Z BP Sitting (Pre-Dialysis) 135/64 mmHg BP Sitting (Post-Dialysis) 141/80 mmHg Concurrent Access: falseAV Fistula Upper Arm (Right) Arterial Sitting Heart Rate Pre-Dialysis 56 BPM Sitting H eart Rate Post-Dialysis 64 BPM Temperature Pre-Dialysis 98.1 degF Temperature Post -Dialysis 98 degF June 10, 2023 In-Center Hemodialysis Treatment 0760-21-71G11:35:00.000Z 5142-56-00X45:07:23.000Z BP Sitting (Pre-Dialysis) 145/62 mmHg BP Sitting (Post-Dialysis) 132/69 mmHg Concurrent Access: falseAV Fistula Upper Arm (Right) Arterial Sitting Heart Rate Pre-Dialysis 61 BPM Sitting H eart Rate Post-Dialysis 62 BPM Temperature Pre-Dialysis 98.2 degF Temperature Post -Dialysis 97.2 degF June 07, 2023 In-Center Hemodialysis Treatment 2545-82-71X35:31:23.000Z 8654-47-36W43:07:38.000Z BP Sitting (Pre-Dialysis) 174/78 mmHg BP Sitting [...] T1 5: 46 :2 6. 00 0Z 20 0- 02 T1 9: 21 :0 1. 00 0Z BP Sitting (Pre-Dial ysis) 148/73 mmHg BP Sitting (Post-Rosa lysis) 153/63 mmHg Concurrent Access: falseAV Fistula Upper Arm (Right) Arterial Sitting Heart Rate Pre-Dialysis 63 BPM Sitting H eart Rate Post-Dialysis 57 BPM Temperature Pre-Dialysis 98 degF Temperature Post -Dialysis 97.6 degF May 31, 2023 In-Center Hemodialysis Treatment 3026-91-72Z95:27:59.000Z 5790-16-54K68:58:49.000Z BP Sitting (Pre-Dialysis) 165/89 mmHg BP Sitting (Post-Dialysis) 122/60 mmHg Concurrent Access: falseAV Fistula Upper Arm (Right) Arterial Sitting Heart Rate Pre-Dialysis 77 BPM Sitting H eart Rate Post-Dialysis 67 BPM Temperature Pre-Dialysis 98 degF Temperature Post -Dialysis 97.8 degF May 29, 2023 In-Center Hemodialysis Treatment 2516-19-03Z29:35:16.000Z 2282-37-50N59:04:51.000Z BP Sitting (Pre-Dialysis) 141/66 mmHg BP Sitting (Post-Dialysis) 128/63 mmHg Concurrent Access: falseAV Fistula Upper Arm (Right) Arterial Sitting Heart Rate Pre-Dialysis 70 BPM Sitting H eart Rate Post-Dialysis 68 BPM Temperature Pre-Dialysis 98.2 degF Temperature Post -Dialysis 96.8 degF May 27, 2023 In-Center Hemodialysis Treatment 9719-57-70C56:05:00.000Z 9165-24-44H07:16:50.000Z BP Sitting (Pre-Dialysis) 138/70 mmHg BP Sitting (Post-Dialysis) 122/54 mmHg Concurrent Access: falseAV Fistula Upper Arm (Right) Arterial Sitting Heart Rate Pre-Dialysis 64 BPM Sitting H eart Rate Post-Dialysis 68 BPM Temperature Pre-Dialysis 97.2 degF Temperature Post -Dialysis 98.3 degF May 24, 2023 In-Center Hemodialysis Treatment 4298-14-10A21:52:20.000Z 9944-53-60W81:13:10.000Z BP Sitting (Pre-Dialysis) 143/67 mmHg BP Sitting (Post-Dialysis) 127/54 mmHg Concurrent Access: falseAV Fistula Upper Arm (Right) Arterial Sitting Heart Rate Pre-Dialysis 73 BPM Sitting H eart Rate Post-Dialysis 66 BPM Temperature Pre-Dialysis 97.8 degF Temperature Post -Dialysis 98.4 degF May 22, 2023 In-Center Hemodialysis Treatment 4809-70-06N43:38:08.000Z 6782-69-91E52:08:58.000Z BP Sitting (Pre-Dialysis) 130/61 mmHg BP Sitting (Post-Dialysis) 129/56 mmHg Concurrent Access: falseAV Fistula Upper Arm (Right) Arterial Sitting Heart Rate Pre-Dialysis 75 BPM Sitting H eart Rate Post-Dialysis 68 BPM Temperature Pre-Dialysis 98 degF Temperature Post -Dialysis 98 degF May 20, 2023 In-Center Hemodialysis Treatment 0776-89-25Y93:32:00.000Z 3353-49-01W43:07:48.000Z BP Sitting (Pre-Dialysis) 172/73 mmHg BP Sitting (Post-Dialysis) 149/71 mmHg Concurrent Access: falseAV Fistula Upper Arm (Right) Arterial Sitting Heart Rate Pre-Dialysis 70 BPM Sitting H eart Rate Post-Dialysis 66 BPM Temperature Pre-Dialysis 97.3 degF Temperature Post -Dialysis 97.3 degF May 17, 2023 In-Center Hemodialysis Treatment 7591-27-29O78:49:23.000Z 4190-59-54A46:16:03.000Z BP Sitting (Pre-Dialysis) 157/72 mmHg BP Sitting (Post-Dialysis) 96/57 mmHg Concurrent Access: falseAV Fistula Upper Arm (Right) Arterial Sitting Heart Rate Pre-Dialysis 78 BPM Sitting H eart Rate Post-Dialysis 74 BPM Temperature Pre-Dialysis 98.2 degF Temperature Post -Dialysis 98.2 degF May 15, 2023 In-Center Hemodialysis Treatment 0300-68-48O99:42:29.000Z 5587-88-60Y99:12:23.000Z BP Sitting (Pre-Dialysis) 147/67 mmHg BP Sitting (Post-Dialysis) 115/64 mmHg Concurrent Access: falseAV Fistula Upper Arm (Right) Arterial Sitting Heart Rate Pre-Dialysis 74 BPM Sitting H eart Rate Post-Dialysis 70 BPM Temperature Pre-Dialysis 97.6 degF Temperature Post -Dialysis 97.8 degF May 13, 2023 In-Center Hemodialysis Treatment 7531-70-33K86:13:50.000Z 1261-40-47N63:31:45.000Z BP Sitting (Pre-Dialysis) 123/66 mmHg BP Sitting (Post-Dialysis) 118/66 mmHg Concurrent Access: falseAV Fistula Upper Arm (Right) Arterial Sitting Heart Rate Pre-Dialysis 70 BPM Sitting H eart Rate Post-Dialysis 71 BPM Temperature Pre-Dialysis 97.6 degF Temperature Post -Dialysis 97.6 degF 2023 In-Center Hemodialysis Treatment 1106-13-98F17:34:00.000Z 7154-21-09G92:07:21.000Z BP Sitting (Pre-Dialysis) 118/59 mmHg BP Sitting (Post-Dialysis) 122/63 mmHg Concurrent Access: falseAV Fistula Upper Arm (Right) Arterial Sitting Heart Rate Pre-Dialysis 73 BPM Sitting H eart Rate Post-Dialysis 71 BPM Temperature Pre-Dialysis 97.9 degF Temperature Post -Dialysis 97.3 degF May 08, 2023 In-Center Hemodialysis Treatment 1868-59-43R66:10:00.000Z 5134-13-19F65:44:31.000Z BP Sitting (Pre-Dialysis) 104/54 mmHg BP Sitting (Post-Dialysis) 114/52 mmHg Concurrent Access: falseAV Fistula Upper Arm (Right) Arterial Sitting Heart Rate Pre-Dialysis 65 BPM Sitting H eart Rate Post-Dialysis 77 BPM Temperature Pre-Dialysis 98.1 degF Temperature Post -Dialysis 97.2 degF May 06, 2023 In-Center Hemodialysis Treatment 6292-43-20O36:41:00.000Z 7277-48-39T87:24:46.000Z BP Sitting (Pre-Dialysis) 88/49 mmHg BP Sitting (Post-Dialysis) 128/57 mmHg Concurrent Access: falseAV Fistula Upper Arm (Right) Arterial Sitting Heart Rate Pre-Dialysis 93 BPM Sitting H eart Rate Post-Dialysis 72 BPM Temperature Pre-Dialysis 97.1 degF Temperature Post -Dialysis 97.1 degF May 03, 2023 In-Center Hemodialysis Treatment 2597-70-61Z87:37:00.000Z 7437-61-99I54:14:01.000Z BP Sitting (Pre-Dialysis) 98/51 mmHg BP Sitting (Post-Dialysis) 103/55 mmHg Concurrent Access: falseAV Fistula Upper Arm (Right) Arterial Sitting Heart Rate Pre-Dialysis 80 BPM Sitting H eart Rate Post-Dialysis 67 BPM Temperature Pre-Dialysis 97.8 degF Temperature Post -Dialysis 96.9 degF May 01, 2023 In-Center Hemodialysis Treatment 9696-87-97M76:29:00.000Z 3232-64-31L48:01:54.000Z BP Sitting (Pre-Dialysis) 90/46 mmHg BP Sitting (Post-Dialysis) 105/56 mmHg Concurrent Access: falseAV Fistula Upper Arm (Right) Arterial Sitting Heart Rate Pre-Dialysis 67 BPM Sitting H eart Rate Post-Dialysis 63 BPM Temperature Pre-Dialysis 97.6 degF Temperature Post -Dialysis 97.2 degF February 14, 2023 In-Center Hemodialysis Treatment 9139-47-54Y31:30:30.000Z 9956-33-13H51:00:30.000Z BP Sitting (Pre-Dialysis) 155/74 mmHg BP Sitting (Post-Dialysis) 162/75 mmHg Concurrent Access: falseAV Fistula Upper Arm (Right) Arterial Sitting Heart Rate Pre-Dialysis 71 BPM Sitting H eart Rate Post-Dialysis 65 BPM Temperature Pre-Dialysis 97.3 degF Temperature Post -Dialysis 97.6 degF February 12, 2023 In-Center Hemodialysis Treatment 5370-20-45J34:51:00.000Z 4445-26-78J61:22:51.000Z BP Sitting (Pre-Dialysis) 149/74 mmHg BP Sitting (Post-Dialysis) 137/66 mmHg Concurrent Access: falseAV Fistula Upper Arm (Right) Arterial Sitting Heart Rate Pre-Dialysis 69 BPM Sitting H eart Rate Post-Dialysis 65 BPM Temperature Pre-Dialysis 98 degF Temperature Post -Dialysis 96.8 degF February 02, 2023 In-Center Hemodialysis Treatment 3492-93-71W16:45:23.000Z 7896-62-05H17:48:43.000Z BP Sitting (Pre-Dialysis) 151/84 mmHg BP Sitting (Post-Dialysis) 153/82 mmHg Concurrent Access: falseAV Fistula Upper Arm (Right) Arterial Sitting Heart Rate Pre-Dialysis 70 BPM Sitting H eart Rate Post-Dialysis 70 BPM Temperature Pre-Dialysis 98.2 degF Temperature Post -Dialysis 97.4 degF January 31, 2023 In-Center Hemodialysis Treatment 2406-60-70V24:28:43.000Z 0400-13-26B86:52:53.000Z BP Sitting (Pre-Dialysis) 165/68 mmHg BP Sitting [...] degF January 26, 2023 In-Center Hemodialysis Treatment 7226-42-82Q53:48:04.000Z 3902-28-69H88:18:54.000Z BP Sitting (Pre-Dialysis) 132/67 mmHg BP Sitting (Post-Dialysis) 136/67 mmHg Concurrent Access: falseAV Fistula Upper Arm (Right) Arterial Sitting Heart Rate Pre-Dialysis 66 BPM Sitting H eart Rate Post-Dialysis 58 BPM Temperature Pre-Dialysis 97.6 degF Temperature Post -Dialysis 97.6 degF January 24, 2023 In-Center Hemodialysis Treatment 1322-30-10B10:40:50.000Z 3762-90-76A16:10:25.000Z BP Sitting (Pre-Dialysis) 126/59 mmHg BP Sitting (Post-Dialysis) 145/65 mmHg Concurrent Access: falseAV Fistula Upper Arm (Right) Arterial Sitting Heart Rate Pre-Dialysis 69 BPM Sitting H eart Rate Post-Dialysis 62 BPM Temperature Pre-Dialysis 97.6 degF Temperature Post -Dialysis 97.8 degF January 22, 2023 In-Center Hemodialysis Treatment 2665-48-40J23:44:00.000Z 8635-77-97K91:15:11.000Z BP Sitting (Pre-Dialysis) 143/72 mmHg BP Sitting (Post-Dialysis) 142/66 mmHg Concurrent Access: falseAV Fistula Upper Arm (Right) Arterial Sitting Heart Rate Pre-Dialysis 72 BPM Sitting H eart Rate Post-Dialysis 65 BPM Temperature Pre-Dialysis 98.2 degF Temperature Post -Dialysis 98.1 degF January 19, 2023 In-Center Hemodialysis Treatment 3480-98-83R00:10:55.000Z 5989-33-00I03:14:40.000Z BP Sitting (Pre-Dialysis) 126/65 mmHg BP Sitting (Post-Dialysis) 127/56 mmHg Concurrent Access: falseAV Fistula Upper Arm (Right) Arterial Sitting Heart Rate Pre-Dialysis 66 BPM Sitting H eart Rate Post-Dialysis 60 BPM Temperature Pre-Dialysis 97.7 degF Temperature Post -Dialysis 97.6 degF January 18, 2023 In-Center Hemodialysis Treatment 6244-56-59B63:31:00.000Z 6618-54-04C42:00:17.000Z BP Sitting (Pre-Dialysis) 135/64 mmHg BP Sitting [...] degF January 08, 2023 In-Center Hemodialysis Treatment 5857-17-37G28:40:58.000Z 5493-06-89D21:05:33.000Z BP Sitting (Pre-Dialysis) 162/63 mmHg BP Sitting (Post-Dialysis) 179/91 mmHg Concurrent Access: falseAV Fistula Upper Arm (Right) Arterial Sitting Heart Rate Pre-Dialysis 50 BPM Sitting H eart Rate Post-Dialysis 72 BPM Temperature Pre-Dialysis 97.6 degF Temperature Post -Dialysis 97.5 degF January 03, 2023 In-Center Hemodialysis Treatment 1168-93-81N21:18:34.000Z 0004-57-05Y11:32:44.000Z BP Sitting (Pre-Dialysis) 115/62 mmHg BP Sitting (Post-Dialysis) 143/69 mmHg Concurrent Access: falseAV Fistula Upper Arm (Right) Arterial Sitting Heart Rate Pre-Dialysis 67 BPM Sitting H eart Rate Post-Dialysis 72 BPM Temperature Pre-Dialysis 97.2 degF Temperature Post -Dialysis 97.1 degF January 01, 2023 In-Center Hemodialysis Treatment 8162-86-41Q98:39:26.000Z 2936-76-16R64:09:26.000Z BP Sitting (Pre-Dialysis) 133/56 mmHg BP Sitting (Post-Dialysis) 126/62 mmHg Concurrent Access: falseAV Fistula Upper Arm (Right) Arterial Sitting Heart Rate Pre-Dialysis 63 BPM Sitting H eart Rate Post-Dialysis 81 BPM Temperature Pre-Dialysis 98.9 degF Temperature Post -Dialysis 97.6 degF December 03, 2022 In-Center Hemodialysis Treatment 8537-76-94V74:24:00.000Z 4639-29-52X27:55:09.000Z BP Sitting (Pre-Dialysis) 128/61 mmHg BP Sitting (Post-Dialysis) 139/64 mmHg Concurrent Access: falseAV Fistula Upper Arm (Right) Arterial Sitting Heart Rate Pre-Dialysis 58 BPM Sitting H eart Rate Post-Dialysis 72 BPM Temperature Pre-Dialysis 98.4 degF Temperature Post -Dialysis 97.6 degF November 29, 2022 In-Center Hemodialysis Treatment 9482-01-41V22:24:34.000Z 0263-64-71C29:04:09.000Z BP Sitting (Pre-Dialysis) 124/68 mmHg BP Sitting (Post-Dialysis) 125/56 mmHg Concurrent Access: falseAV Fistula Upper Arm (Right) Arterial Sitting Heart Rate Pre-Dialysis 62 BPM Sitting H eart Rate Post-Dialysis 63 BPM Temperature Pre-Dialysis 97.7 degF Temperature Post -Dialysis 97.3 degF November 27, 2022 In-Center Hemodialysis Treatment 5237-52-32J78:35:00.000Z 0700-03-35F86:56:27.000Z BP Sitting (Pre-Dialysis) 133/63 mmHg BP Sitting (Post-Dialysis) 154/66 mmHg Concurrent Access: falseAV Fistula Upper Arm (Right) Arterial Sitting Heart Rate Pre-Dialysis 60 BPM Sitting H eart Rate Post-Dialysis 60 BPM Temperature Pre-Dialysis 97.8 degF Temperature Post -Dialysis 97.1 degF November 24, 2022 In-Center Hemodialysis Treatment 0822-81-64D81:22:45.000Z 8928-17-51H02:58:10.000Z BP Sitting (Pre-Dialysis) 124/61 mmHg BP Sitting (Post-Dialysis) 126/52 mmHg Concurrent Access: falseAV Fistula Upper Arm (Right) Arterial Sitting Heart Rate Pre-Dialysis 66 BPM Sitting H eart Rate Post-Dialysis 63 BPM Temperature Pre-Dialysis 97 degF Temperature Post -Dialysis 97.5 degF November 22, 2022 In-Center Hemodialysis Treatment 5235-17-18M72:27:50.000Z 7857-62-02T70:43:15.000Z BP Sitting (Pre-Dialysis) 107/57 mmHg BP Sitting (Post-Dialysis) 119/53 mmHg Concurrent Access: falseAV Fistula Upper Arm (Right) Arterial Sitting Heart Rate Pre-Dialysis 65 BPM Sitting H eart Rate Post-Dialysis 61 BPM Temperature Pre-Dialysis 97.9 degF Temperature Post -Dialysis 97.7 degF November 20, 2022 In-Center Hemodialysis Treatment 8740-33-68Z56:32:53.000Z 5093-61-69A71:07:53.000Z BP Sitting (Pre-Dialysis) 127/60 mmHg BP Sitting (Post-Dialysis) 131/60 mmHg Concurrent Access: falseAV Fistula Upper Arm (Right) Arterial Sitting Heart Rate Pre-Dialysis 65 BPM Sitting H eart Rate Post-Dialysis 71 BPM Temperature Pre-Dialysis 97.3 degF Temperature Post -Dialysis 97.6 degF November 15, 2022 In-Center Hemodialysis Treatment 5838-59-83A33:48:20.000Z 8039-73-71M74:18:00.000Z BP Sitting (Pre-Dialysis) 127/65 mmHg BP Sitting (Post-Dialysis) 148/69 mmHg Concurrent Access: falseAV Fistula Upper Arm (Right) Arterial Sitting Heart Rate Pre-Dialysis 70 BPM Sitting H eart Rate Post-Dialysis 69 BPM Temperature Pre-Dialysis 97.5 degF Temperature Post -Dialysis 97.9 degF November 13, 2022 In-Center Hemodialysis Treatment 4453-58-44V51:05:51.000Z 2121-97-77U95:33:00.000Z BP Sitting (Pre-Dialysis) 130/69 mmHg BP Sitting (Post-Dialysis) 150/63 mmHg Concurrent Access: falseAV Fistula Upper Arm (Right) Arterial Sitting Heart Rate Pre-Dialysis 65 BPM Sitting H eart Rate Post-Dialysis 62 BPM Temperature Pre-Dialysis 96.5 degF Temperature Post -Dialysis 97.3 degF November 10, 2022 In-Center Hemodialysis Treatment 6266-53-48K82:29:00.000Z 6821-27-76G43:01:08.000Z BP Sitting (Pre-Dialysis) 129/69 mmHg BP Sitting (Post-Dialysis) 134/81 mmHg Concurrent Access: falseAV Fistula Upper Arm (Right) Arterial Sitting Heart Rate Pre-Dialysis 65 BPM Sitting H eart Rate Post-Dialysis 65 BPM Temperature Pre-Dialysis 97.2 degF Temperature Post -Dialysis 97.2 degF November 08, 2022 In-Center Hemodialysis Treatment 8610-73-38L08:06:08.000Z 1354-71-61Z95:31:33.000Z BP Sitting (Pre-Dialysis) 130/71 mmHg BP Sitting (Post-Dialysis) 132/62 mmHg Concurrent Access: falseAV Fistula Upper Arm (Right) Arterial Sitting Heart Rate Pre-Dialysis 66 BPM Sitting H eart Rate Post-Dialysis 63 BPM Temperature Pre-Dialysis 97.8 degF Temperature Post -Dialysis 97.9 degF November 06, 2022 In-Center Hemodialysis Treatment 7408-44-02N83:56:03.000Z 7105-18-48H29:26:03.000Z BP Sitting (Pre-Dialysis) 119/64 mmHg BP Sitting (Post-Dialysis) 130/68 mmHg Concurrent Access: falseAV Fistula Upper Arm (Right) Arterial Sitting Heart Rate Pre-Dialysis 67 BPM Sitting H eart Rate Post-Dialysis 59 BPM Temperature Pre-Dialysis 97.4 degF Temperature Post -Dialysis 96.8 degF November 03, 2022 In-Center Hemodialysis Treatment 3721-16-04J26:17:00.000Z 5303-31-02Z97:13:00.000Z BP Sitting (Pre-Dialysis) 117/56 mmHg BP Sitting (Post-Dialysis) 116/54 mmHg Concurrent Access: falseAV Fistula Upper Arm (Right) Arterial Sitting Heart Rate Pre-Dialysis 62 BPM Sitting H eart Rate Post-Dialysis 57 BPM Temperature Pre-Dialysis 97.6 degF Temperature Post -Dialysis 97.6 degF November 01, 2022 In-Center Hemodialysis Treatment 4356-45-35F84:06:06.000Z 3267-02-39P12:29:01.000Z BP Sitting (Pre-Dialysis) 142/71 mmHg BP Sitting (Post-Dialysis) 130/73 mmHg Concurrent Access: falseAV Fistula Upper Arm (Right) Arterial Sitting Heart Rate Pre-Dialysis 65 BPM Sitting H eart Rate Post-Dialysis 61 BPM Temperature Pre-Dialysis 97.7 degF Temperature Post -Dialysis 97.4 degF October 30, 2022 In-Center Hemodialysis Treatment 9072-42-86I64:38:00.000Z 4172-21-29H85:10:25.000Z BP Sitting (Pre-Dialysis) 145/75 mmHg BP Sitting (Post-Dialysis) 144/67 mmHg Concurrent Access: falseAV Fistula Upper Arm (Right) Arterial Sitting Heart Rate Pre-Dialysis 69 BPM Sitting H eart Rate Post-Dialysis 74 BPM Temperature Pre-Dialysis 97.7 degF Temperature Post -Dialysis 97.8 degF October 27, 2022 In-Center Hemodialysis Treatment 1844-34-59I24:56:12.000Z 3424-68-61S31:26:22.000Z BP Sitting (Pre-Dialysis) 137/70 mmHg BP Sitting (Post-Dialysis) 162/81 mmHg Concurrent Access: falseAV Fistula Upper Arm (Right) Arterial Sitting Heart Rate Pre-Dialysis 64 BPM Sitting H eart Rate Post-Dialysis 70 BPM Temperature Pre-Dialysis 97.9 degF Temperature Post -Dialysis 97.2 degF October 25, 2022 In-Center Hemodialysis Treatment 8333-56-73M82:15:00.000Z 7720-03-65G44:44:45.000Z BP Sitting (Pre-Dialysis) 139/69 mmHg BP Sitting (Post-Dialysis) 151/78 mmHg Concurrent Access: falseAV Fistula Upper Arm (Right) Arterial Sitting Heart Rate Pre-Dialysis 69 BPM Sitting H eart Rate Post-Dialysis 67 BPM Temperature Pre-Dialysis 97.9 degF Temperature Post -Dialysis 97.2 degF October 23, 2022 In-Center Hemodialysis Treatment 7770-64-05B31:07:00.000Z 8742-35-06T37:32:16.000Z BP Sitting (Pre-Dialysis) 129/61 mmHg BP Sitting (Post-Dialysis) 148/55 mmHg Concurrent Access: falseAV Fistula Upper Arm (Right) Arterial Sitting Heart Rate Pre-Dialysis 65 BPM Sitting H eart Rate Post-Dialysis 61 BPM Temperature Pre-Dialysis 97.8 degF Temperature Post -Dialysis 97.9 degF October 20, 2022 In-Center Hemodialysis Treatment 0431-58-32G94:05:00.000Z 4409-50-82J19:35:01.000Z BP Sitting (Pre-Dialysis) 138/71 mmHg BP Sitting (Post-Dialysis) 145/77 mmHg Concurrent Access: falseAV Fistula Upper Arm (Right) Arterial Sitting Heart Rate Pre-Dialysis 68 BPM Sitting H eart Rate Post-Dialysis 75 BPM Temperature Pre-Dialysis 97.8 degF Temperature Post -Dialysis 97.9 degF October 16, 2022 In-Center Hemodialysis Treatment 3203-79-59Q24:15:00.000Z 2281-74-05S87:42:23.000Z BP Sitting (Pre-Dialysis) 120/57 mmHg BP Sitting (Post-Dialysis) 140/72 mmHg Concurrent Access: falseAV Fistula Upper Arm (Right) Arterial Sitting Heart Rate Pre-Dialysis 65 BPM Sitting H eart Rate Post-Dialysis 66 BPM Temperature Pre-Dialysis 98 degF Temperature Post -Dialysis 97.8 degF October 13, 2022 In-Center Hemodialysis Treatment 5897-87-47A73:45:00.000Z 0114-53-31Q94:16:14.000Z BP Sitting (Pre-Dialysis) 123/59 mmHg BP Sitting (Post-Dialysis) 136/68 mmHg Concurrent Access: falseAV Fistula Upper Arm (Right) Arterial Sitting Heart Rate Pre-Dialysis 65 BPM Sitting H eart Rate Post-Dialysis 60 BPM Temperature Pre-Dialysis 97.3 degF Temperature Post -Dialysis 97.6 degF October 11, 2022 In-Center Hemodialysis Treatment 8315-03-70C11:28:00.000Z 3820-75-63F00:32:00.000Z BP Sitting (Pre-Dialysis) 132/65 mmHg BP Sitting (Post-Dialysis) 140/58 mmHg Concurrent Access: falseAV Fistula Upper Arm (Right) Arterial Sitting Heart Rate Pre-Dialysis 68 BPM Sitting H eart Rate Post-Dialysis 64 BPM Temperature Pre-Dialysis 97.8 degF Temperature Post -Dialysis 97.7 degF October 09, 2022 In-Center Hemodialysis Treatment 3824-27-84Z42:30:00.000Z 0423-92-61Y59:03:57.000Z BP Sitting (Pre-Dialysis) 126/67 mmHg BP Sitting (Post-Dialysis) 141/66 mmHg Concurrent Access: falseAV Fistula Upper Arm (Right) Arterial Sitting Heart Rate Pre-Dialysis 65 BPM Sitting H eart Rate Post-Dialysis 59 BPM Temperature Pre-Dialysis 97.8 degF Temperature Post -Dialysis 97.4 degF October 06, 2022 In-Center Hemodialysis Treatment 0243-89-83G19:07:00.000Z 5124-14-56D32:33:23.000Z BP Sitting (Pre-Dialysis) 117/52 mmHg BP Sitting (Post-Dialysis) 136/68 mmHg Concurrent Access: falseAV Fistula Upper Arm (Right) Arterial Sitting Heart Rate Pre-Dialysis 63 BPM Sitting H eart Rate Post-Dialysis 62 BPM Temperature Pre-Dialysis 97.2 degF Temperature Post -Dialysis 97.8 degF October 04, 2022 In-Center Hemodialysis Treatment 6747-91-45U46:22:53.000Z 6834-45-08Q54:53:43.000Z BP Sitting (Pre-Dialysis) 134/78 mmHg BP Sitting (Post-Dialysis) 110/54 mmHg Concurrent Access: falseAV Fistula Upper Arm (Right) Arterial Sitting Heart Rate Pre-Dialysis 10 BPM Sitting H eart Rate Post-Dialysis 59 BPM Temperature Pre-Dialysis 97.5 degF Temperature Post -Dialysis 97.6 degF October 02, 2022 In-Center Hemodialysis Treatment 6451-96-85F81:15:00.000Z 6586-35-56G98:33:04.000Z BP Sitting (Pre-Dialysis) 119/62 mmHg BP Sitting (Post-Dialysis) 143/73 mmHg Concurrent Access: falseAV Fistula Upper Arm (Right) Arterial Sitting Heart Rate Pre-Dialysis 60 BPM Sitting H eart Rate Post-Dialysis 60 BPM Temperature Pre-Dialysis 97.9 degF Temperature Post -Dialysis 97.7 degF September 29, 2022 In-Center Hemodialysis Treatment 8525-53-18C80:04:00.000Z 2588-61-14P48:36:24.000Z BP Sitting (Pre-Dialysis) 133/63 mmHg BP Sitting (Post-Dialysis) 163/74 mmHg Concurrent Access: falseAV Fistula Upper Arm (Right) Arterial Sitting Heart Rate Pre-Dialysis 64 BPM Sitting H eart Rate Post-Dialysis 59 BPM Temperature Pre-Dialysis 97.5 degF Temperature Post -Dialysis 96.7 degF September 27, 2022 In-Center Hemodialysis Treatment 2264-99-16V45:51:38.000Z 4256-91-29Y81:24:08.000Z BP Sitting (Pre-Dialysis) 113/60 mmHg BP Sitting (Post-Dialysis) 109/57 mmHg Concurrent Access: falseAV Fistula Upper Arm (Right) Arterial Sitting Heart Rate Pre-Dialysis 78 BPM Sitting H eart Rate Post-Dialysis 61 BPM Temperature Pre-Dialysis 97.4 degF Temperature Post -Dialysis 97.3 degF September 25, 2022 In-Center Hemodialysis Treatment 0739-01-75O77:02:37.000Z 1259-08-35I02:35:57.000Z BP Sitting (Pre-Dialysis) 105/48 mmHg BP Sitting (Post-Dialysis) 134/62 mmHg Concurrent Access: falseAV Fistula Upper Arm (Right) Arterial Sitting Heart Rate Pre-Dialysis 58 BPM Sitting H eart Rate Post-Dialysis 66 BPM Temperature Pre-Dialysis 98.1 degF Temperature Post -Dialysis 97.2 degF September 22, 2022 In-Center Hemodialysis Treatment [id number]:00:00.000Z [id number]:32:07.000Z BP Sitting (Pre-Dialysis) 133/66 mmHg BP Sitting (Post-Dialysis) 159/81 mmHg Concurrent Access: falseAV Fistula Upper Arm (Right) Arterial Sitting Heart Rate Pre-Dialysis 66 BPM Sitting H eart Rate Post-Dialysis 73 BPM Temperature Pre-Dialysis 97.4 degF Temperature Post -Dialysis 97.8 degF September 20, 2022 In-Center Hemodialysis Treatment [id number]:02:57.000Z [id number]:35:11.000Z BP Sitting (Pre-Dialysis) 145/70 mmHg BP Sitting (Post-Dialysis) 144/71 mmHg Concurrent Access: falseAV Fistula Upper Arm (Right) Arterial Sitting Heart Rate Pre-Dialysis 64 BPM Sitting H eart Rate Post-Dialysis 63 BPM Temperature Pre-Dialysis 97.6 degF Temperature Post -Dialysis 97.8 degF September 18, 2022 In-Center Hemodialysis Treatment [id number]:50:00.000Z [id number]:23:20.000Z BP Sitting (Pre-Dialysis) 126/65 mmHg BP Sitting (Post-Dialysis) 133/66 mmHg Concurrent Access: falseAV Fistula Upper Arm (Right) Arterial Sitting Heart Rate Pre-Dialysis 66 BPM Sitting H eart Rate Post-Dialysis 67 BPM Temperature Pre-Dialysis 98 degF Temperature Post -Dialysis 97.3 degF September 15, 2022 In-Center Hemodialysis Treatment [id number]:57:00.000Z [id number]:34:37.000Z BP Sitting (Pre-Dialysis) 154/72 mmHg BP Sitting (Post-Dialysis) 142/70 mmHg Concurrent Access: falseAV Fistula Upper Arm (Right) Arterial Sitting Heart Rate Pre-Dialysis 66 BPM Sitting H eart Rate Post-Dialysis 68 BPM Temperature Pre-Dialysis 98.4 degF Temperature Post -Dialysis 98.1 degF September 13, 2022 In-Center Hemodialysis Treatment [id number]:00:00.000Z [id number]:33:36.000Z BP Sitting (Pre-Dialysis) 121/70 mmHg BP Sitting (Post-Dialysis) 115/51 mmHg Concurrent Access: falseAV Fistula Upper Arm (Right) Arterial Sitting Heart Rate Pre-Dialysis 62 BPM Sitting H eart Rate Post-Dialysis 59 BPM Temperature Pre-Dialysis 98.1 degF Temperature Post -Dialysis 97.3 degF September 11, 2022 In-Center Hemodialysis Treatment [id number]:51:57.000Z [id number]:28:12.000Z BP Sitting (Pre-Dialysis) 130/64 mmHg BP Sitting (Post-Dialysis) 140/66 mmHg Concurrent Access: falseAV Fistula Upper Arm (Right) Arterial Sitting Heart Rate Pre-Dialysis 72 BPM Sitting H eart Rate Post-Dialysis 62 BPM Temperature Pre-Dialysis 97.9 degF Temperature Post -Dialysis 97.7 degF September 08, 2022 In-Center Hemodialysis Treatment [id number]:49:00.000Z [id number]:22:46.000Z BP Sitting (Pre-Dialysis) 111/54 mmHg BP Sitting (Post-Dialysis) 114/58 mmHg Concurrent Access: falseAV Fistula Upper Arm (Right) Arterial Sitting Heart Rate Pre-Dialysis 61 BPM Sitting H eart Rate Post-Dialysis 54 BPM Temperature Pre-Dialysis 98.5 degF Temperature Post -Dialysis 97.9 degF September 06, 2022 In-Center Hemodialysis Treatment [id number]:40:00.000Z [id number]:09:00.000Z BP Sitting (Pre-Dialysis) 116/58 mmHg BP Sitting (Post-Dialysis) 140/65 mmHg Concurrent Access: falseAV Fistula Upper Arm (Right) Arterial Sitting Heart Rate Pre-Dialysis 65 BPM Sitting H eart Rate Post-Dialysis 61 BPM Temperature Pre-Dialysis 98.3 degF Temperature Post -Dialysis 98.1 degF September 04, 2022 In-Center Hemodialysis Treatment [id number]:05:00.000Z [id number]:32:52.000Z BP Sitting (Pre-Dialysis) 112/58 mmHg BP Sitting (Post-Dialysis) 132/60 mmHg Concurrent Access: falseAV Fistula Upper Arm (Right) Arterial Sitting Heart Rate Pre-Dialysis 65 BPM Sitting H eart Rate Post-Dialysis 59 BPM Temperature Pre-Dialysis 98.3 degF Temperature Post -Dialysis 97.6 degF September 01, 2022 In-Center Hemodialysis Treatment [id number]:40:00.000Z [id number]:12:39.000Z BP Sitting (Pre-Dialysis) 131/61 mmHg BP Sitting (Post-Dialysis) 159/71 mmHg Concurrent Access: falseAV Fistula Upper Arm (Right) Arterial Sitting Heart Rate Pre-Dialysis 67 BPM Sitting H eart Rate Post-Dialysis 68 BPM Temperature Pre-Dialysis 98.3 degF Temperature Post -Dialysis 97.5 degF August 30, 2022 In-Center Hemodialysis Treatment [id number]:18:36.000Z [id number]:44:01.000Z BP Sitting (Pre-Dialysis) 128/58 mmHg BP Sitting (Post-Dialysis) 146/67 mmHg Concurrent Access: falseAV Fistula Upper Arm (Right) Arterial Sitting Heart Rate Pre-Dialysis 61 BPM Sitting H eart Rate Post-Dialysis 58 BPM Temperature Pre-Dialysis 98 degF Temperature Post -Dialysis 97.3 degF August 28, 2022 In-Center Hemodialysis Treatment [id number]:05:00.000Z [id number]:23:00.000Z BP Sitting (Pre-Dialysis) 113/56 mmHg BP Sitting (Post-Dialysis) 129/88 mmHg Concurrent Access: falseAV Fistula Upper Arm (Right) Arterial Sitting Heart Rate Pre-Dialysis 65 BPM Sitting H eart Rate Post-Dialysis 71 BPM Temperature Pre-Dialysis 97.2 degF Temperature Post -Dialysis 98 degF August 25, 2022 In-Center Hemodialysis Treatment [id number]:36:54.000Z 0423-33-73B72:05:00.000Z BP Sitting (Pre-Dialysis) 130/62 mmHg BP Sitting (Post-Dialysis) 146/69 mmHg Concurrent Access: falseAV Fistula Upper Arm (Right) Arterial Sitting Heart Rate Pre-Dialysis 64 BPM Sitting H eart Rate Post-Dialysis 59 BPM Temperature Pre-Dialysis 97.7 degF Temperature Post -Dialysis 97.4 degF August 23, 2022 In-Center Hemodialysis Treatment [id number]:30:00.000Z [id number]:38:49.000Z BP Sitting (Pre-Dialysis) 164/73 mmHg BP Sitting (Post-Dialysis) 136/59 mmHg Concurrent Access: falseAV Fistula Upper Arm (Right) Arterial Sitting Heart Rate Pre-Dialysis 66 BPM Sitting H eart Rate Post-Dialysis 68 BPM Temperature Pre-Dialysis 97.3 degF Temperature Post -Dialysis 97.6 degF August 21, 2022 In-Center Hemodialysis Treatment [id number]:26:55.000Z [id number]:33:35.000Z BP Sitting (Pre-Dialysis) 122/57 mmHg BP Sitting (Post-Dialysis) 108/61 mmHg Concurrent Access: falseAV Fistula Upper Arm (Right) Arterial Sitting Heart Rate Pre-Dialysis 68 BPM Sitting H eart Rate Post-Dialysis 66 BPM Temperature Pre-Dialysis 98.6 degF Temperature Post -Dialysis 97.4 degF August 18, 2022 In-Center Hemodialysis Treatment [id number]:54:00.000Z [id number]:25:34.000Z BP Sitting (Pre-Dialysis) 130/66 mmHg BP Sitting (Post-Dialysis) 147/70 mmHg Concurrent Access: falseAV Fistula Upper Arm (Right) Arterial Sitting Heart Rate Pre-Dialysis 66 BPM Sitting H eart Rate Post-Dialysis 62 BPM Temperature Pre-Dialysis 97.8 degF Temperature Post -Dialysis 97.9 degF August 16, 2022 In-Center Hemodialysis Treatment [id number]:58:49.000Z [id number]:39:39.000Z BP Sitting (Pre-Dialysis) 126/56 mmHg BP Sitting (Post-Dialysis) 143/67 mmHg Concurrent Access: falseAV Fistula Upper Arm (Right) Arterial Sitting Heart Rate Pre-Dialysis 65 BPM Sitting H eart Rate Post-Dialysis 62 BPM Temperature Pre-Dialysis 98.9 degF Temperature Post -Dialysis 97.2 degF August 14, 2022 In-Center Hemodialysis Treatment [id number]:58:00.000Z [id number]:29:00.000Z BP Sitting (Pre-Dialysis) 130/61 mmHg BP Sitting (Post-Dialysis) 146/62 mmHg Concurrent Access: falseAV Fistula Upper Arm (Right) Arterial Sitting Heart Rate Pre-Dialysis 66 BPM Sitting H eart Rate Post-Dialysis 66 BPM Temperature Pre-Dialysis 98.3 degF Temperature Post -Dialysis 97.6 degF DIALYSIS ORDER Dialysis Procedure Orders Type of Dialysis Procedure Order Order Date/Time Observations In-Center Hemodialysis Treatment March Target Weight 83.5 kg Dialysate Flow Rate 800 mL/min Blood Flow Rate 400 mL/min Treatment Time 210 min(total) Max UF Rate 13 mL/kg/hr Base Sodium Dialysate Base Sodium 138 mE q/L dialysate_temp 36 C BiCarb Dialysate BiCarbonate 39 mEq/L Access Concurrent No Arterial Access AV Fistula (Upper Ar m (Right)) Venous Access AV Fistula (Upper Ar m (Right)) Arterial Needle Display NIPRO, TULIP, 15 G x 1, SHARP , TWIN Venous Needle NIPRO, TULIP, 15G x 1, SHARP , TWIN Dialyzer Nipro Elisio 17H 145 5 [email or web address] Dialysate Bath Potassium Potassium 2 mEq /L Dialysate Bath Calcium Calcium 2.5 mEq/L Results Adequacy Description Draw Date Result/Unit Status Ref Range Result Comments Creatinine [Mass/volume] in Serum or Plasma 2025-04-23 18:56:18 4.96 mg/dL F 0.7-1.3 DIALYZER FLOW-QD 2025-04-08 15:26:27 800 mL/min F HEIGHT IN INCHES 2025-04-08 15:26:27 50 Inches F WEIGHT (KG) 2025-04-08 15:26:27 83.5 kg F PRESCRIBED DAYS/WEEK 2025-04-08 15:26:27 3 Day/Wk F Residual kt/v 2025-04-08 15:26:27 F Total Kt/V 2025-04-08 15:26:27 1.41 F spKt/V 2025-04-08 15:26:27 1.41 F eKt/V 2025-04-08 15:26:27 1.19 F stdKt/V (DIAL) 2025-04-08 15:26:27 N/A F stdKT/V Total 2025-04-08 15:26:27 N/A F TOTAL HOURS/WEEK DIALYSIS 2025-04-08 15:26:27 9 hrs F URR% 2025-04-08 15:26:27 73 % F LENGTH OF DIALYSIS 2025-04-08 15:26:27 189 min F Dialyzer JANE 2025-04-08 15:26:27 1455 Calc F PATIENT AGE 2025-04-08 15:26:27 59 Years F BSA OTILIA 2025-04-08 15:26:27 1.47 sq m F WEIGHT - PRE DAY 1 2025-04-08 15:26:27 84 kg F WEIGHT - POST DAY 1 2025-04-08 15:26:27 83.5 kg F VT (KT/V TX VOL) 2025-04-08 15:26:27 40.1 L F VM (KT/V MEAN VOL) 2025-04-08 15:26:27 41 F KT/V PRESCRIBED 2025-04-08 15:26:27 1.85 F nPCR 2025-04-08 15:26:27 0.79 G/KG/D F AMPUTATE FACTOR 2025-04-08 15:26:27 0.118 F TBW (Castillo) 2025-04-08 15:26:27 37.14 Liters F Std Renal KT/V 2025-04-08 15:26:27 N/A F BLOOD FLOW-QWB 2025-04-08 15:26:27 397 F CURRENT KRU 2025-04-08 15:26:27 F Urea nitrogen [Mass/volume] in Serum or Plasma 2025-04-08 15:24:14 40 mg/dL F 9.0-23.0 Urea nitrogen [Mass/volume] in Serum or Plasma --post dialysis 2025-04-08 15:19:21 11 mg/dL F 9.0-23.0 Creatinine [Mass/volume] in Serum or Plasma 2025-03-25 13:06:20 5.59 mg/dL F 0.7-1.3 DIALYZER FLOW-QD 2025-03-23 19:32:06 800 mL/min F LENGTH OF DIALYSIS 2025-03-23 19:32:06 178 min F PATIENT AGE 2025-03-23 19:32:06 59 Years F BSA OTILIA 2025-03-23 19:32:06 1.51 sq m F WEIGHT - POST DAY 1 2025-03-23 19:32:06 81.9 kg F HEIGHT IN INCHES 2025-03-23 19:32:06 50 Inches F WEIGHT - PRE DAY 1 2025-03-23 19:32:06 81 kg F PRESCRIBED DAYS/WEEK 2025-03-23 19:32:06 3 Day/Wk F WEIGHT (KG) 2025-03-23 19:32:06 89 kg F VM (KT/V MEAN VOL) 2025-03-23 19:32:06 41.3 F Residual kt/v 2025-03-23 19:32:06 F Unable to calculate: Post BUN lab result is unknown Total Kt/V 2025-03-23 19:32:06 1.3 F AMPUTATE FACTOR 2025-03-23 19:32:06 0.118 F TBW (Castillo) 2025-03-23 19:32:06 36.6 Liters F spKt/V 2025-03-23 19:32:06 1.3 F stdKt/V (DIAL) 2025-03-23 19:32:06 N/A F TOTAL HOURS/WEEK DIALYSIS 2025-03-23 19:32:06 6 hrs F BLOOD FLOW-QWB 2025-03-23 19:32:06 399 F CURRENT KRU 2025-03-23 19:32:06 F Unable to calculate: Post BUN lab result is unknown URR% 2025-03-23 19:32:06 71 % F Dialyzer JANE 2025-03-23 19:32:06 1455 Calc F VT (KT/V TX VOL) 2025-03-23 19:32:06 41.1 L F nPCR 2025-03-23 19:32:06 0.4 G/KG/D F KT/V PRESCRIBED 2025-03-23 19:32:06 1.66 F eKt/V 2025-03-23 19:32:06 1.09 F Std Renal KT/V 2025-03-23 19:32:06 N/A F stdKT/V Total 2025-03-23 19:32:06 N/A F Urea nitrogen [Mass/volume] in Serum or Plasma --post dialysis 2025-03-23 19:30:20 8 mg/dL F 9.0-23.0 Urea nitrogen [Mass/volume] in Serum or Plasma 2025-03-23 19:28:30 28 mg/dL F 9.0-23.0 Creatinine [Mass/volume] in Serum or Plasma 2025-02-20 16:05:25 7.22 mg/dL F 0.7-1.3 LENGTH OF DIALYSIS 2025-02-05 16:56:09 210 min F URR% 2025-02-05 16:56:09 74 % F BSA OTILIA 2025-02-05 16:56:09 1.52 sq m F WEIGHT - PRE DAY 1 2025-02-05 16:56:09 90.4 kg F HEIGHT IN INCHES 2025-02-05 16:56:09 50 Inches F VT (KT/V TX VOL) 2025-02-05 16:56:09 42 L F WEIGHT (KG) 2025-02-05 16:56:09 90 kg F VM (KT/V MEAN VOL) 2025-02-05 16:56:09 41.3 F Residual kt/v 2025-02-05 16:56:09 F AMPUTATE FACTOR 2025-02-05 16:56:09 0.118 F TBW (Castillo) 2025-02-05 16:56:09 39.33 Liters F eKt/V 2025-02-05 16:56:09 1.28 F TOTAL HOURS/WEEK DIALYSIS 2025-02-05 16:56:09 10 hrs F CURRENT KRU 2025-02-05 16:56:09 F DIALYZER FLOW-QD 2025-02-05 16:56:09 800 mL/min F Dialyzer JANE 2025-02-05 16:56:09 1455 Calc F PATIENT AGE 2025-02-05 16:56:09 59 Years F WEIGHT - POST DAY 1 2025-02-05 16:56:09 90 kg F PRESCRIBED DAYS/WEEK 2025-02-05 16:56:09 3 Day/Wk F Total Kt/V 2025-02-05 16:56:09 1.51 F KT/V PRESCRIBED 2025-02-05 16:56:09 1.94 F nPCR 2025-02-05 16:56:09 0.93 G/KG/D F spKt/V 2025-02-05 16:56:09 1.51 F stdKt/V (DIAL) 2025-02-05 16:56:09 N/A F Std Renal KT/V 2025-02-05 16:56:09 N/A F BLOOD FLOW-QWB 2025-02-05 16:56:09 399 F stdKT/V Total 2025-02-05 16:56:09 N/A F Urea nitrogen [Mass/volume] in Serum or Plasma 2025-02-05 16:54:16 47 mg/dL F 9.0-23.0 Urea nitrogen [Mass/volume] in Serum or Plasma --post dialysis 2025-02-05 15:35:20 12 mg/dL F 9.0-23.0 Dialyzer JANE WEIGHT - POST DAY 1 WEIGHT (KG) PRESCRIBED DAYS/WEEK VT (KT/V TX VOL) VM (KT/V MEAN VOL) TBW (Castillo) eKt/V BLOOD FLOW-QWB Urea nitrogen [Mass/volume] in Serum or Plasma URR% DIALYZER FLOW-QD LENGTH OF DIALYSIS PATIENT AGE BSA OTILIA HEIGHT IN INCHES WEIGHT - PRE DAY 1 Residual kt/v KT/V PRESCRIBED nPCR Total Kt/V AMPUTATE FACTOR spKt/V stdKt/V (DIAL) Std Renal KT/V stdKT/V Total TOTAL HOURS/WEEK DIALYSIS CURRENT KRU Anemia Description Draw Date Result/Unit Status Ref Range Result Comments TIBC 2025-04-24 06:23:38 194 ug/dL F 250.0-425.0 IRON SATURATION 2025-04-24 06:23:38 14 % F 21.0-49.0 Iron [Mass/volume] in Serum or Plasma 2025-04-24 05:52:31 27 ug/dL F 65.0-175.0 Iron binding capacity.unsaturated [Mass/volume] in Serum or Plasma 2025-04-24 05:52:31 167 ug/dL F 75.0-360.0 Ferritin [Mass/volume] in Serum or Plasma 2025-04-23 20:02:13 763 ng/mL F 22.0-322.0 HCT CALC HGBX3 2025-04-23 17:52:56 31.8 % F 42.0-52.0 Erythrocytes [#/volume] in Blood by Automated count 2025-04-23 17:51:15 3.28 x 10^6 cells/uL F 4.6-6.2 Hemoglobin [Mass/volume] in Blood 2025-04-23 17:51:15 10.6 g/dL F 14.0-18.0 MCV [Entitic volume] by Automated count 2025-04-23 17:51:15 103.6 fL F 80.0-100.0 Hematocrit [Volume Fraction] of Blood by Automated count 2025-04-23 17:51:15 34 % F 41.0-53.0 Reticulocytes/100 erythrocytes in Blood by Automated count 2025-04-23 17:51:15 3.15 % F 0.7-2.5 Erythrocyte distribution width [Ratio] by Automated count 2025-04-23 17:51:13 17.2 % F 11.0-15.0 MCH [Entitic mass] by Automated count 2025-04-23 17:51:13 32.4 pg F 25.9-34.2 ABSOLUTE RETIC COUNT 2025-04-23 17:51:13 0.103 x 10^6 cells/uL F 0.035-0.127 MCHC [Mass/volume] by Automated count 2025-04-23 17:51:13 31.2 g/dL F 29.6-35.3 Platelets [#/volume] in Blood by Automated count 2025-04-23 17:51:13 92 x 10^3 cells/uL F 140.0-450.0 Ferritin [Mass/volume] in Serum or Plasma 2025-04-15 05:24:21 755 ng/mL F 22.0-322.0 IRON SATURATION 2025-04-15 01:54:26 29 % F 21.0-49.0 TIBC 2025-04-15 01:54:26 174 ug/dL F 250.0-425.0 Iron binding capacity.unsaturated [Mass/volume] in Serum or Plasma 2025-04-15 01:49:26 124 ug/dL F 75.0-360.0 Iron [Mass/volume] in Serum or Plasma 2025-04-15 01:49:26 50 ug/dL F 65.0-175.0 HCT CALC HGBX3 2025-04-08 15:20:32 29.7 % F 42.0-52.0 Hemoglobin [Mass/volume] in Blood 2025-04-08 15:20:17 9.9 g/dL F 14.0-18.0 HCT CALC HGBX3 2025-03-25 14:38:09 30.3 % F 42.0-52.0 Hematocrit [Volume Fraction] of Blood by Automated count 2025-03-25 14:37:17 32.6 % F 41.0-53.0 Erythrocyte distribution width [Ratio] by Automated count 2025-03-25 14:37:17 18.1 % F 11.0-15.0 MCH [Entitic mass] by Automated count 2025-03-25 14:37:17 32 pg F 25.9-34.2 MCHC [Mass/volume] by Automated count 2025-03-25 14:37:17 31 g/dL F 29.6-35.3 Platelets [#/volume] in Blood by Automated count 2025-03-25 14:37:17 135 x 10^3 cells/uL F 140.0-450.0 Hemoglobin [Mass/volume] in Blood 2025-03-25 14:37:17 10.1 g/dL F 14.0-18.0 Erythrocytes [#/volume] in Blood by Automated count 2025-03-25 14:37:17 3.17 x 10^6 cells/uL F 4.6-6.2 MCV [Entitic volume] by Automated count 2025-03-25 14:37:17 103 fL F 80.0-100.0 ABSOLUTE RETIC COUNT 2025-03-25 14:37:17 0.119 x 10^6 cells/uL F 0.035-0.127 Reticulocytes/100 erythrocytes in Blood by Automated count 2025-03-25 14:37:17 3.76 % F 0.7-2.5 IRON SATURATION 2025-03-24 03:13:31 22 % F 21.0-49.0 TIBC 2025-03-24 03:13:31 169 ug/dL F 250.0-425.0 Iron [Mass/volume] in Serum or Plasma 2025-03-24 02:50:35 38 ug/dL F 65.0-175.0 Iron binding capacity.unsaturated [Mass/volume] in Serum or Plasma 2025-03-24 02:50:35 131 ug/dL F 75.0-360.0 Ferritin [Mass/volume] in Serum or Plasma 2025-03-23 21:16:20 784 ng/mL F 22.0-322.0 HCT CALC HGBX3 2025-03-20 23:37:47 28.5 % F 42.0-52.0 Hemoglobin [Mass/volume] in Blood 2025-03-20 23:37:05 9.5 g/dL F 14.0-18.0 HCT CALC HGBX3 2025-02-20 15:15:09 27.6 % F 42.0-52.0 Erythrocyte distribution width [Ratio] by Automated count 2025-02-20 15:14:15 15.4 % F 11.0-15.0 Hematocrit [Volume Fraction] of Blood by Automated count 2025-02-20 15:14:15 28.3 % F 41.0-53.0 MCV [Entitic volume] by Automated count 2025-02-20 15:14:15 105.3 fL F 80.0-100.0 Hemoglobin [Mass/volume] in Blood 2025-02-20 15:14:15 9.2 g/dL F 14.0-18.0 MCHC [Mass/volume] by Automated count 2025-02-20 15:14:15 32.4 g/dL F 29.6-35.3 Erythrocytes [#/volume] in Blood by Automated count 2025-02-20 15:14:15 2.69 x 10^6 cells/uL F 4.6-6.2 MCH [Entitic mass] by Automated count 2025-02-20 15:14:15 34.2 pg F 25.9-34.2 Platelets [#/volume] in Blood by Automated count 2025-02-20 15:14:15 71 x 10^3 cells/uL F 140.0-450.0 HCT CALC HGBX3 2025-02-05 12:54:12 29.1 % F 42.0-52.0 Hemoglobin [Mass/volume] in Blood 2025-02-05 12:53:14 9.7 g/dL F 14.0-18.0 IRON SATURATION 2025-01-31 03:33:56 12 % F 21.0-49.0 TIBC 2025-01-31 03:33:56 180 ug/dL F 250.0-425.0 Iron [Mass/volume] in Serum or Plasma 2025-01-31 03:33:15 21 ug/dL F 65.0-175.0 Iron binding capacity.unsaturated [Mass/volume] in Serum or Plasma 2025-01-31 03:32:36 159 ug/dL F 75.0-360.0 FluidBP Description Draw Date Result/Unit Status Ref Range Result Comments Sodium [Moles/volume] in Serum or Plasma 2025-04-24 05:52:31 142 mEq/L F 136.0-145.0 Sodium [Moles/volume] in Serum or Plasma 2025-03-25 21:56:58 144 mEq/L F 136.0-145.0 Sodium [Moles/volume] in Serum or Plasma 2025-02-20 23:30:38 144 mEq/L F 136.0-145.0 General Description Draw Date Result/Unit Status Ref Range Result Comments Chloride [Moles/volume] in Serum or Plasma 2025-04-24 05:52:31 101 mEq/L F 98.0-107.0 Alanine aminotransferase [Enzymatic activity/volume] in Serum or Plasma 2025-04-23 18:56:18 18 U/L F 10.0-49.0 Aspartate aminotransferase [Enzymatic activity/volume] in Serum or Plasma 2025-04-23 18:56:18 20 U/L F 0.0-33.0 Chloride [Moles/volume] in Serum or Plasma 2025-03-25 21:56:58 103 mEq/L F 98.0-107.0 Alanine aminotransferase [Enzymatic activity/volume] in Serum or Plasma 2025-03-25 13:06:20 11 U/L F 10.0-49.0 Aspartate aminotransferase [Enzymatic activity/volume] in Serum or Plasma 2025-03-25 13:06:20 15 U/L F 0.0-33.0 Chloride [Moles/volume] in Serum or Plasma 2025-02-20 23:30:38 104 mEq/L F 98.0-107.0 Alanine aminotransferase [Enzymatic activity/volume] in Serum or Plasma 2025-02-20 16:05:25 9 U/L F 10.0-49.0 Aspartate aminotransferase [Enzymatic activity/volume] in Serum or Plasma 2025-02-20 16:05:25 14 U/L F 0.0-33.0 InfectionVaccination Description Draw Date Result/Unit Status Ref Range Result Comments Neutrophils/100 leukocytes in Blood by Automated count 2025-04-23 17:51:15 81.5 % F Eosinophils [#/volume] in Blood by Automated count 2025-04-23 17:51:15 136 Cells/uL F 0.0-700.0 Basophils [#/volume] in Blood by Automated count 2025-04-23 17:51:15 37 Cells/uL F 0.0-400.0 Lymphocytes/100 leukocytes in Blood by Automated count 2025-04-23 17:51:13 8.5 % F Basophils/100 leukocytes in Blood by Automated count 2025-04-23 17:51:13 0.7 % F Monocytes/100 leukocytes in Blood by Automated count 2025-04-23 17:51:13 6.7 % F Eosinophils/100 leukocytes in Blood by Automated count 2025-04-23 17:51:13 2.6 % F Lymphocytes [#/volume] in Blood by Automated count 2025-04-23 17:51:13 445 Cells/uL F 620.0-3660.0 Monocytes [#/volume] in Blood by Automated count 2025-04-23 17:51:13 350 Cells/uL F 0.0-1100.0 Leukocytes [#/volume] in Blood by Automated count 2025-04-23 17:51:13 5.2 x 10^3 cells/uL F 4.0-11.0 Neutrophils [#/volume] in Blood by Automated count 2025-04-23 17:51:13 4262 Cells/uL F 2000.0-8800.0 Basophils/100 leukocytes in Blood by Automated count 2025-03-25 14:37:17 0.3 % F Neutrophils/100 leukocytes in Blood by Automated count 2025-03-25 14:37:17 77.5 % F Lymphocytes/100 leukocytes in Blood by Automated count 2025-03-25 14:37:17 11.8 % F Neutrophils [#/volume] in Blood by Automated count 2025-03-25 14:37:17 4627 Cells/uL F 2000.0-8800.0 Lymphocytes [#/volume] in Blood by Automated count 2025-03-25 14:37:17 704 Cells/uL F 620.0-3660.0 Monocytes [#/volume] in Blood by Automated count 2025-03-25 14:37:17 454 Cells/uL F 0.0-1100.0 Monocytes/100 leukocytes in Blood by Automated count 2025-03-25 14:37:17 7.6 % F Eosinophils/100 leukocytes in Blood by Automated count 2025-03-25 14:37:17 2.7 % F Leukocytes [#/volume] in Blood by Automated count 2025-03-25 14:37:17 6 x 10^3 cells/uL F 4.0-11.0 Basophils [#/volume] in Blood by Automated count 2025-03-25 14:37:17 18 Cells/uL F 0.0-400.0 Eosinophils [#/volume] in Blood by Automated count 2025-03-25 14:37:17 161 Cells/uL F 0.0-700.0 Neutrophils/100 leukocytes in Blood by Automated count 2025-02-20 15:14:15 71.1 % F Monocytes/100 leukocytes in Blood by Automated count 2025-02-20 15:14:15 9.7 % F Eosinophils/100 leukocytes in Blood by Automated count 2025-02-20 15:14:15 3.4 % F Leukocytes [#/volume] in Blood by Automated count 2025-02-20 15:14:15 3.5 x 10^3 cells/uL F 4.0-11.0 Neutrophils [#/volume] in Blood by Automated count 2025-02-20 15:14:15 2510 Cells/uL F 2000.0-8800.0 Basophils [#/volume] in Blood by Automated count 2025-02-20 15:14:15 53 Cells/uL F 0.0-400.0 Eosinophils [#/volume] in Blood by Automated count 2025-02-20 15:14:15 120 Cells/uL F 0.0-700.0 Basophils/100 leukocytes in Blood by Automated count 2025-02-20 15:14:15 1.5 % F Lymphocytes/100 leukocytes in Blood by Automated count 2025-02-20 15:14:15 14.3 % F Lymphocytes [#/volume] in Blood by Automated count 2025-02-20 15:14:15 505 Cells/uL F 620.0-3660.0 Monocytes [#/volume] in Blood by Automated count 2025-02-20 15:14:15 342 Cells/uL F 0.0-1100.0 MineralBone Disorder Description Draw Date Result/Unit Status Ref Range Result Comments Alkaline phosphatase [Enzymatic activity/volume] in Serum or Plasma 2025-04-23 18:56:18 171 U/L F 46.0-116.0 CA CORRECTED 2025-04-08 16:58:49 9.1 mg/dL F CA*PO4 CORRCTD 2025-04-08 16:57:05 35.4 Calc F 21.0-53.0 CA/PHOS PRODUCT 2025-04-08 16:57:05 32 Calc F 21.0-53.0 Calcium [Mass/volume] in Serum or Plasma 2025-04-08 16:45:27 8.2 mg/dL F 8.7-10.4 Parathyrin.intact [Mass/volume] in Serum or Plasma 2025-04-08 15:39:23 241 pg/mL F 18.0-80.0 Phosphate [Mass/volume] in Serum or Plasma 2025-04-08 15:24:14 3.9 mg/dL F 2.4-5.1 Parathyrin.intact [Mass/volume] in Serum or Plasma 2025-04-02 14:58:11 214 pg/mL F 18.0-80.0 Alkaline phosphatase [Enzymatic activity/volume] in Serum or Plasma 2025-03-25 13:06:20 178 U/L F 46.0-116.0 CA CORRECTED 2025-03-21 05:23:29 8.7 mg/dL F CA/PHOS PRODUCT 2025-03-21 05:21:31 23.2 Calc F 21.0-53.0 CA*PO4 CORRCTD 2025-03-21 05:21:31 25.3 Calc F 21.0-53.0 Calcium [Mass/volume] in Serum or Plasma 2025-03-21 05:17:49 8 mg/dL F 8.7-10.4 Parathyrin.intact [Mass/volume] in Serum or Plasma 2025-03-21 02:37:17 134 pg/mL F 18.0-80.0 Phosphate [Mass/volume] in Serum or Plasma 2025-03-21 00:06:12 2.9 mg/dL F 2.4-5.1 Alkaline phosphatase [Enzymatic activity/volume] in Serum or Plasma 2025-02-20 16:05:25 126 U/L F 46.0-116.0 CA CORRECTED 2025-02-06 07:29:16 8.8 mg/dL F CA/PHOS PRODUCT 2025-02-06 07:27:31 30.8 Calc F 21.0-53.0 CA*PO4 CORRCTD 2025-02-06 07:27:31 34.2 Calc F 21.0-53.0 Calcium [Mass/volume] in Serum or Plasma 2025-02-06 07:07:50 7.9 mg/dL F 8.7-10.4 Phosphate [Mass/volume] in Serum or Plasma 2025-02-05 16:54:16 3.9 mg/dL F 2.4-5.1 Parathyrin.intact [Mass/volume] in Serum or Plasma 2025-02-05 13:53:19 195 pg/mL F 18.0-80.0 Nutrition Description Draw Date Result/Unit Status Ref Range Result Comments Potassium [Moles/volume] in Serum or Plasma 2025-04-24 05:52:31 4.1 mEq/L F 3.5-5.1 A/G RATIO 2025-04-23 18:57:08 0.8 Calc F 1.0-2.5 GLOBULIN 2025-04-23 18:57:08 3.8 g/dL F 0.9-5.0 Glucose [Mass/volume] in Serum or Plasma 2025-04-23 18:56:18 128 mg/dL F 74.0-106.0 Albumin [Mass/volume] in Serum or Plasma by Bromocresol green (BCG) dye binding method 2025-04-23 18:56:18 3.1 g/dL F 3.2-4.8 Bicarbonate [Moles/volume] in Serum or Plasma 2025-04-23 18:56:18 28 mEq/L F 20.0-31.0 Lactate dehydrogenase [Enzymatic activity/volume] in Serum or Plasma 2025-04-23 18:56:18 156 U/L F 120.0-246.0 Protein [Mass/volume] in Serum or Plasma 2025-04-23 18:56:18 6.9 g/dL F 5.7-8.2 Potassium [Moles/volume] in Serum or Plasma 2025-03-25 21:56:58 3.6 mEq/L F 3.5-5.1 A/G RATIO 2025-03-25 13:07:09 0.8 Calc F 1.0-2.5 GLOBULIN 2025-03-25 13:07:09 3.6 g/dL F 0.9-5.0 Bicarbonate [Moles/volume] in Serum or Plasma 2025-03-25 13:06:20 30 mEq/L F 20.0-31.0 Lactate dehydrogenase [Enzymatic activity/volume] in Serum or Plasma 2025-03-25 13:06:20 134 U/L F 120.0-246.0 Protein [Mass/volume] in Serum or Plasma 2025-03-25 13:06:20 6.5 g/dL F 5.7-8.2 Albumin [Mass/volume] in Serum or Plasma by Bromocresol green (BCG) dye binding method 2025-03-25 13:06:20 2.9 g/dL F 3.2-4.8 Glucose [Mass/volume] in Serum or Plasma 2025-03-25 13:06:20 195 mg/dL F 74.0-106.0 Potassium [Moles/volume] in Serum or Plasma 2025-02-20 23:30:38 3.8 mEq/L F 3.5-5.1 A/G RATIO 2025-02-20 16:06:26 0.9 Calc F 1.0-2.5 GLOBULIN 2025-02-20 16:06:26 3.5 g/dL F 0.9-5.0 Bicarbonate [Moles/volume] in Serum or Plasma 2025-02-20 16:05:25 28 mEq/L F 20.0-31.0 Glucose [Mass/volume] in Serum or Plasma 2025-02-20 16:05:25 122 mg/dL F 74.0-106.0 Lactate dehydrogenase [Enzymatic activity/volume] in Serum or Plasma 2025-02-20 16:05:25 154 U/L F 120.0-246.0 Protein [Mass/volume] in Serum or Plasma 2025-02-20 16:05:25 6.6 g/dL F 5.7-8.2 Albumin [Mass/volume] in Serum or Plasma by Bromocresol green (BCG) dye binding method 2025-02-20 16:05:25 3.1 g/dL F 3.2-4.8 Encounters No encounter information to report Immunizations [...] Commen ts Diagnostic Test Pending Jimmie Loucell 2023-05-01 14:48:18 Sodium [Moles/volume] in Serum or Plasma [code = 2951-2] [facility] 14:47:06 Glucose [Mass/volume] in Serum or Plasma [code = 2345-7] Diagnostic Test Pending Jimmie Loucell 2024-10-03 06:00:00 Ferritin [Mass/volume] in Serum or Plasma [code = 2276-4] [facility] 2023-05-01 14:46:40 Aluminum [Mass/volume] in Serum or Plasma [code = 5574-9] [facility] 2023-05-01 14:46:31 Albumin [Mass/volume] in Serum or Plasma by Bromocresol green (BCG) dye binding method [code = 65947-4] Diagnostic Test Pending Jimmie Loucell 2023-06-02 05:00:00 Alanine aminotransferase [Enzymatic activity/volume] in Serum or Plasma [code = 1742-6] [facility] 2023-05-01 14:46:53 Creatinine [Mass/volume] in Serum or Plasma [code = 2160-0] Diagnostic Test Pending Jimmie Almodovar 2023-05-03 05:00:00 Parathyrin.intact [Mass/volume] in Serum or Plasma [code = 2731-8] Diagnostic Test Pending Jimmie Loucell 2023-09-15 06:00:00 Hemoglobin [Mass/volume] in Blood [code = 718-7] Diagnostic Test Pending Jimmie Kobi [facility] 2025-03-26 19:05:53 In-Center Hemodialysis Treatment [code = KOJ928] Diet Order [facility] May 17, 2023 Diet Calorie 25 kcal/kg Fluid Value 1000 mL/d Phosphorus Value 850 mg/d Potassium Value 2000 mg/d Protein Value 1.2 gm/kg Sodium Value 2000 mg/d Calculated Weight 71 kg dietary_diet_modification Carb Controlle d;
[2025-04-25] MEDS: HYDROcodone/acetaminophen (*CRX) 5-325 MG TABLET 1 TAB PO (08:16)
[2025-04-25 08:17] VITALS: BP 118/59; PULSE 63; RESP 16; O2SAT 96
[2025-04-25 09:58] VITALS: BP 106/52; PULSE 56; RESP 15; O2SAT 96
[2025-04-25 10:13] VITALS: BP 113/49; PULSE 62; RESP 15; TEMP 37; O2SAT 94
== END 2025-04-25 10:17 ==
PROVIDERS: Emergency Provider Emergency Medicine; PCP Internal Medicine
DX: S79.192A Other physeal fracture of lower end of left femur, initial encounter for closed fracture (principal); I13.2 Hypertensive heart and chronic kidney disease with heart failure and with stage 5 chronic kidney disease, or end stage renal disease; I50.40 Unspecified combined systolic (congestive) and diastolic (congestive) heart failure; E11.22 Type 2 diabetes mellitus with diabetic chronic kidney disease; N18.6 End stage renal disease; Z99.2 Dependence on renal dialysis; D63.1 Anemia in chronic kidney disease; E11.42 Type 2 diabetes mellitus with diabetic polyneuropathy; E78.5 Hyperlipidemia, unspecified; I25.10 Atherosclerotic heart disease of native coronary artery without angina pectoris; G47.33 Obstructive sleep apnea (adult) (pediatric); M19.90 Unspecified osteoarthritis, unspecified site; F41.9 Anxiety disorder, unspecified; F32.A Depression, unspecified; Z66 Do not resuscitate; Z95.1 Presence of aortocoronary bypass graft; Z95.5 Presence of coronary angioplasty implant and graft; Z86.14 Personal history of Methicillin resistant Staphylococcus aureus infection; Z87.891 Personal history of nicotine dependence; Z89.512 Acquired absence of left leg below knee; Z89.511 Acquired absence of right leg below knee; Z96.1 Presence of intraocular lens; Z98.49 Cataract extraction status, unspecified eye; Z79.899 Other long term (current) drug therapy; Z79.82 Long term (current) use of aspirin; Z79.84 Long term (current) use of oral hypoglycemic drugs; R93.6 Abnormal findings on diagnostic imaging of limbs; W06.XXXA Fall from bed, initial encounter
CPT/HCPCS: 29505; 73502; 73562; 99284; A9270

== ENCOUNTER 2025-06-25 14:30 | Emergency (ER) | payer MEDICARE, SELFPAY ==
[2025-06-25] VITALS (8 sets, daily range): BP systolic 114–129; BP diastolic 48–87; PULSE 68–79; RESP 18–26; O2SAT 93–100
--- NOTE | ~2025-06-25 | CT_ITS ---
EXAMINATION: CT brain wo toni, 06/25/2025 15:40 CDT HISTORY: altered mental status COMPARISON: No comparisons available. Technique: Axial images obtained of the brain without contrast. One or more of the following dose reduction techniques were used: automated exposure control, adjustment of the mA and/or kV according to patient size, use of iterative reconstruction technique. Findings: No acute infarct or parenchymal hemorrhage. No abnormal mass or mass effect. No midline shift. No extra-axial fluid collections. No hydrocephalus. Mastoid air cells unremarkable. Sinuses and orbits unremarkable. No acute fracture. No significant facial or scalp soft tissue swelling evident. No radiopaque foreign body is seen. Impression: 1.No acute intracranial abnormality. Reviewed, dictated and finalized at location P. Impression: 1.No acute intracranial abnormality.
--- NOTE | 2025-06-25 14:38 | ECG_ITS ---
Test Date: 2025-06-25 14:39:48 Measurements Intervals [place] Rate: 71 P: 0 TN: 0 QRS: -68 QRSD: 136 T: 91 QT: 463 QTc: 506 Interpretive Statements SINUS RHYTHM WITH ATRIAL PREMATURE COMPLEX WITH FIRST DEGREE AV BLOCK LEFT AXIS DEVIATION LEFT BUNDLE BRANCH BLOCK BASELINE ARTIFACT- I, II, III, AVR, AVL, AVF, V1-V6 ABNORMAL ECG Compared to ECG 03/10/2025 08:52:50 HEART RATE HAS INCREASED Electronically Signed On 06-25-2025 15:31:33 CDT by Nasim Gee D.O.
[2025-06-25 14:48] LABS: Hematocrit 35.5 % (42.0-52.0); Hemoglobin 10.9 g/dL (14.0-18.0); Immature Granulocyte Percent A 0.3 % (0-0.5); Lymphocytes Absolute Auto 0.51 K/mm3 (0.9-3.2); Mean Corpuscular HGB Conc 30.7 g/dl (32-36); Mean Corpuscular Hemoglobin 30.4 pg (26-34); Mean Corpuscular Volume 99.2 fl (80-100); Nucleated Red Blood Cells Absolute Auto 0.000 K/mm3 (0.0-0.012); Nucleated Red Blood Cells Perc 0.0 % (0.0-0.2); Platelet Count Result 122 k/mm3 (150-375); Red Blood Count 3.58 M/mm3 (4.6-6.20); White Blood Count 9.1 K/mm3 (4.5-10.0)
--- OUTSIDE RECORDS SUMMARY | 2025-06-25 14:58 | XMS_ITS ---
Author Organization [facility] [address] Address [address] [place] [address] Care Team Providers Care Printed Circuit Boards Solder Leveler Name Role Phone Frandy Colunga MD Unavailable [phone] Alcon Quintanilla DPM Unavailable No, Physician Primary Care Provider Theodore Solis MD Unavailable Leah MARINO MD, [...] 5:16 AM CDT COLONOSCOPY 11/03/2021 12:44 PM HEAVY RAIL TRAIN OPERATOR HEPATITIS C ANTIBODY Routine 09/20/2020 8:35 PM HEAVY RAIL TRAIN OPERATOR from Last 3 Months or Most [...] signs of displacement. Discussed extensively with director home health and therapy. We will proceed with therapy [...] I reminded patient has sister and director home health at this appointment at [facility] at 1:[address] Bradley. We [...] presented with mental status changes from the shelter and found to have acute cholecystitis. Likely acute metabolic encephalopathy. Treat underlying cause. Mental status is improving. Closed left subtrochanteric femur fracture, sequ christiana 02/28/2023 Assessment & Plan (04/09/2023 7:04 PM CDT): Ortho fu pending, don aware Assessment & Plan (04/03/2023 5:26 PM CDT): Nonoperative management was recommended at [facility] earlier this summer. We will arrange outpatient follow up with Orthopedics but seems to be asymptomatic on that leg Assessment & Plan (03/26/2023 3:12 PM CDT): As per HPI, pain seems somewhat better controlled on current regimen. Recent x- rays did not show any new fractures. I reminded director home health the patient appears to still need appointment made with Orthopedics at [place]. Phone #[phone] Assessment & Plan (03/18/2023 4:48 PM CDT): [...] pain control with oxycodone. Discussed with director home health about getting follow up with Orthopedics in [...] seems to be slowly improving. Reminded director home health that patient has on April 23 appointment with Neurosurgery at [facility] at 1:30 p.m. along with the [...] be clinically improving neurologically. Discussed with director home health about getting neurosurgery follow up in about [...] 08/08/2021 Assessment & Plan (10/27/2021 3:09 PM HEAVY RAIL TRAIN OPERATOR): EGD/Colonoscopy scheduled for 11/03/21 Hold aspirin 10/29/21 Assessment & Plan (08/15/2021 1:41 PM HEAVY RAIL TRAIN OPERATOR): Patient was referred for colonoscopy and has appointment with GI. Abdominal pain has resolved. Assessment & Plan (08/08/2021 12:33 PM HEAVY RAIL TRAIN OPERATOR): Last colonoscopy 2012 (Unavailable). Recurrent rectal pain and diarrhea. No hemorrhoids. Check CBC. Encounter for surgical after care following surgery of circulatory system 06/16/2021 Chronic diarrhea 06/06/2021 Assessment & Plan (10/03/2021 9:10 AM HEAVY RAIL TRAIN OPERATOR): Pt was given Lomotil due to diarrhea and now c/o constipation. Resume questran and loperamide when constipation resolved. Assessment & Plan (07/28/2021 12:53 PM HEAVY RAIL TRAIN OPERATOR): Pt was given Lomotil due to diarrhea and now c/o constipation. Resume questran and loperamide when constipation resolved. Assessment & Plan (07/18/2021 1:25 PM HEAVY RAIL TRAIN OPERATOR): Continue cholestyramine and loperamide. Assessment & [...] therapy Assessment & Plan (10/03/2021 9:09 AM HEAVY RAIL TRAIN OPERATOR): Patient's pain is controlled with [place] Patient needs AKA wound functional level for prosthesis for transfer and ambulation on level surfaces at a fixed candence Assessment & Plan (06/14/2021 2:19 PM CDT): Percocet change to [place] as patient could not tolerate Assessment & Plan (05/31/2021 1:38 PM CDT): Continue PT/OT. Recurrent major depressive disorder, in remissio n 05/31/2021 Assessment & Plan (03/18/2023 4:46 PM CDT): Cont remeron, stable but fluctuates due to recent hosp stay and illnesses Assessment & Plan (07/28/2021 12:53 PM HEAVY RAIL TRAIN OPERATOR): Continue Remeron and Zoloft. Assessment & [...] tomorrow. Assessment & Plan (10/03/2021 9:11 AM HEAVY RAIL TRAIN OPERATOR): Continue Tradjenta and Glargine. Blood sugars have been stable between 70 and 150 Assessment & Plan (09/05/2021 12:27 PM HEAVY RAIL TRAIN OPERATOR): Continue Tradjenta and Glargine. Check A1c every 90 days. Assessment & Plan (08/01/2021 11:57 AM HEAVY RAIL TRAIN OPERATOR): Blood glucose 110 - 138 Continue Glargine and Tradjenta Assessment & Plan (07/18/2021 1:24 PM HEAVY RAIL TRAIN OPERATOR): Continue Tradjenta and glargine insulin. Assessment [...] - Given IV phos per renal 05/29 [facility] (current) use of antibiotics Assessment & Plan [...] ich Assessment & Plan (10/03/2021 9:09 AM HEAVY RAIL TRAIN OPERATOR): Not on anticoagulation. Continue Metoprolol, Aspirin. Assessment & Plan (08/01/2021 11:54 AM HEAVY RAIL TRAIN OPERATOR): Not on anticoagulation. Continue Metoprolol, Aspirin. 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 Assessment & Plan (10/27/2021 3:10 PM HEAVY RAIL TRAIN OPERATOR): Continue hemodialysis weekly. Assessment & Plan (08/07/2021 10:27 AM HEAVY RAIL TRAIN OPERATOR): Currently on Sevelamer and Ferrous sulfate. Hemodialysis three days weekly. Assessment & Plan (07/14/2021 1:51 PM HEAVY RAIL TRAIN OPERATOR): Continue Sevelamer and Ferrous sulfate. Assessment [...] schedule Assessment & Plan (09/21/2020 8:33 AM HEAVY RAIL TRAIN OPERATOR): - ESRD on dialysis as of [...] Renvela. Assessment & Plan (09/15/2020 11:00 AM HEAVY RAIL TRAIN OPERATOR): - Related to increased needs, chronic illness/injury and wounds - Nutrition consulted - Consistent carb diet. Will allow double portions of meat. - Supplements ordered Foot ulcer due to secondary DM 09/13/2020 Assessment & Plan (09/21/2020 8:32 AM HEAVY RAIL TRAIN OPERATOR): Right foot wounds appeared about 1 [...] Continue aspirin + Plavix daily Atherosclerosis of ho-chunk artery of right lower extremity 09/06/2020 Overview (09/06/2020): Added automatically from request for surgery [id number] Peripheral arterial disease ([facility]) 09/06/2020 Overview (09/06/2020): Added automatically from request for surgery [id number] Assessment & Plan (03/06/2023 4:14 PM CDT): Continue medical management with statin. Patient is status post bilateral amputations for this reason Assessment & Plan (10/03/2021 9:13 AM HEAVY RAIL TRAIN OPERATOR): Patient to continue aspirin Assessment & [...] chair Assessment & Plan (09/18/2020 8:47 AM HEAVY RAIL TRAIN OPERATOR): - s/p left BKA 05/2020. Presents [...] 06/23/2020 Assessment & Plan (09/05/2021 12:26 PM HEAVY RAIL TRAIN OPERATOR): Continue working with PT/OT. Follow up outpatient for prosthetic. Assessment & Plan (08/15/2021 1:43 PM HEAVY RAIL TRAIN OPERATOR): Continue PT/OT Continue outpatient follow up for prosthetic on 08/21/21 (2pm), 08/28/21 (11am), and 09/06/21 (11am). Assessment & Plan (08/08/2021 12:35 PM HEAVY RAIL TRAIN OPERATOR): Seen outpatient for prosthetic yesterday and has follow up again 08/21/21 (2pm), 08/28/21 (11am), and 09/06/21 (11am) Assessment & Plan (08/07/2021 10:29 AM HEAVY RAIL TRAIN OPERATOR): Denies phanthom limb pain. Pain controlled cyclobenzaprine, Acetaminophen, and Gabapentin. Assessment & Plan (08/01/2021 11:53 AM HEAVY RAIL TRAIN OPERATOR): Continue Aspirin and Gabapentin. Pain well controlled. Assessment & Plan (07/07/2021 12:45 PM CDT): Follow-up outpatient for prosthesis ([place]) Continue gabapentin, acetaminophen, and physical and occupational therapy as tolerated. Assessment & Plan (06/29/2021 1:45 PM CDT): Patient measured for below-knee retail sales lead is yesterday and will follow-up for fitting ([place]). Incision well-healed. Continue PT/OT. Continue gabapentin and acetaminophen. Assessment & Plan (06/19/2021 1:55 PM CDT): Patient had follow-up with vascular surgeon. Sutures removed and patient recommended for residual limb retail sales lead. Pain well controlled. Continue PT/OT Assessment & Plan (06/08/2021 3:02 PM CDT): Patient unable to tolerate oxycodone due to increased confusion. Discussed with MD and will discontinue oxycodone and changed to [place] to help with postoperative pain. Assessment & [...] and OT Bed will [facility] at [facility] tomorrow Patient was not accepted at [facility] rehab per health social work professor Assessment & Plan (06/29/2020 9:55 AM [...] bicarb supplement for acidosis - strict I&Os, uRthy in place - monitor BMP - Lokelma [...] 05/19/2020 Assessment & Plan (07/14/2021 1:52 PM HEAVY RAIL TRAIN OPERATOR): Continue Lasix 40 mg daily Assessment & Plan (09/15/2020 10:36 AM HEAVY RAIL TRAIN OPERATOR): - Echo from 05/2020 LVEF 34% [...] strict IO--if this fails, will do daily Auzcena lift weights Assessment & Plan (06/25/2020 2:06 [...] degree HB on tele w/ very prolonged AK interval and resting bradycardia to mid 50-60s [...] degree HB on tele w/ very prolonged AK interval and resting bradycardia to mid 50-60s [...] degree HB on tele w/ very prolonged AK interval and resting bradycardia to mid 50s, [...] degree HB on tele w/ very prolonged AK interval and resting bradycardia to mid 50s, [...] degree HB on tele w/ very prolonged AK interval, consider restarting - on Entresto 49-51 [...] degree HB on tele w/ very prolonged AK interval, consider restarting - on Entresto 49-51 [...] degree HB on tele w/ very prolonged AK interval. Restart if able. - on Entresto [...] EF 34%, akinetic inferior, inferoapical and inferolateral mzaariegos. Modsevere RV dilatation w/ moderate global RV hypok. G2DD, est PASP 60. - continue home PO lasix 40 bid - carvedilol held d/t 1st degree HB on tele w/ very prolonged AK interval. Restart if able. - on Entresto [...] Plan (05/19/2020 9:20 AM CDT): - BNP 42286 - Restart home carvedilol - Diuresis 2017 [...] (05/18/2020): Added automatically from request for surgery [id number] Assessment & Plan (06/01/2020 10:34 AM CDT): [...] (05/19/2020): Added automatically from request for surgery [id number] Assessment & Plan (02/28/2023 9:46 AM CDT): [...] eye. Assessment & Plan (09/22/2019 3:29 PM HEAVY RAIL TRAIN OPERATOR): New cataract evaluation today Mature cataract [...] on admission with NSR with severely prolonged AK - as noted above, resuming low dose coreg - telemetry Assessment & Plan (06/29/2020 9:55 AM CDT): History of post-op AF - Not on AC on admission, ECG on admission with NSR with severely prolonged AK - as noted above, resuming low dose coreg - telemetry Assessment & Plan (06/28/2020 10:30 AM CDT): History of post-op AF - Not on AC on admission, ECG on admission with NSR with severely prolonged AK - Holding coreg for now while on dobutamine - telemetry Assessment & Plan (06/27/2020 1:26 PM CDT): History of post-op AF - Not on AC on admission, ECG on admission with NSR with severely prolonged AK - Holding coreg for now while on dobutamine - telemetry Assessment & Plan (06/26/2020 12:02 PM CDT): History of post-op AF - Not on AC on admission, ECG on admission with NSR with severely prolonged AK - Holding coreg for now while on dobutamine - telemetry Assessment & Plan (06/25/2020 2:28 PM CDT): History of post-op AF - Not on AC on admission, ECG on admission with NSR with severely prolonged AK - Holding coreg for now while on dobutamine - telemetry Assessment & Plan (06/24/2020 3:35 PM CDT): History of post-op AF - Not on AC on admission, ECG on admission with NSR with severely prolonged AK - Holding coreg for now while on dobutamine - telemetry Assessment & Plan (06/23/2020 9:22 AM CDT): History of post-op AF - Not on AC on admission, ECG on admission with NSR with severely prolonged AK - Holding coreg for now while on dobutamine - telemetry Assessment & Plan (06/22/2020 12:01 PM CDT): History of post-op AF - Not on AC on admission, ECG on admission with NSR with severely prolonged AK - Holding coreg for now while on dobutamine - telemetry Assessment & Plan (06/21/2020 10:44 AM CDT): History of post-op AF - Not on AC on admission, ECG on admission with NSR with severely prolonged AK - Holding coreg for now while on dobutamine - telemetry Assessment & Plan (06/20/2020 11:49 AM CDT): History of post-op AF - Not on AC on admission, ECG on admission with NSR with severely prolonged AK - Holding coreg for now while on [...] - Pt remains under wound care at [facility]. - Discussed with patient the rational for treatment, culture results, risk of recurrent infection, signs/symptoms of recurrent infection, and to contact ID clinic with any questions or concerns. Assessment & Plan (06/30/2020 10:47 AM CDT): S/p L BKA - Continue daily wound care - PT/OT eval and treat Patient will be going to [facility] tomorrow. Assessment & Plan (06/29/2020 9:57 [...] Obesity 01/03/2015 Diabetes mellitus type II, uncontrolled ([facility] ) 08/18/2013 Overview (05/26/2020): May 2020: [...] QID Assessment & Plan (09/15/2020 10:36 AM HEAVY RAIL TRAIN OPERATOR): - Hgb A1c 8.5% 05/2020, 5.5% [...] as current doses - follow-up with his bottom presser at [facility] for long-term therapy decisions. Consider [...] plavix Assessment & Plan (09/14/2020 11:01 AM HEAVY RAIL TRAIN OPERATOR): - s/p CABG [address] [...] Isordil Assessment & Plan (09/17/2020 6:52 AM HEAVY RAIL TRAIN OPERATOR): - VS Q4 hrs - Continue home Lasix, hydralazine, metoprolol, Isordil Assessment & Plan (06/28/2020 10:41 AM CDT): - Elevated blood pressure - continue hydralazine 100 mg tid, isosorbide 40 mg tid - Coreg held with recent MINUTE CLERK, likely resume low dose tomorrow Assessment & Plan (06/27/2020 1:27 PM CDT): - Elevated blood pressure - continue hydralazine 100 mg tid, isosorbide 40 mg tid - Coreg held with recent MINUTE CLERK, likely resume tomorrow Assessment & Plan (06/26/2020 12:05 PM CDT): -Elevated blood pressure - continue hydralazine 100 mg tid, isosorbide 40 mg tid -Coreg held while on MINUTE CLERK Assessment & Plan (06/25/2020 2:31 PM CDT): -Elevated blood pressure - continue hydralazine 100 mg tid, isosorbide 40 mg tid -Coreg held while on MINUTE CLERK Assessment & Plan (06/24/2020 3:58 PM CDT): -Elevated blood pressure - continue hydralazine 100 mg tid, isosorbide 40 mg tid -Coreg held while on MINUTE CLERK Assessment & Plan (06/23/2020 10:00 AM CDT): Elevated blood pressure - continue hydralazine 100 mg tid, isosorbide 40 mg tid Off carvedilol while being on dobutamine Continue to monitor Assessment & Plan (05/31/2020 11:11 AM CDT): On home carvedilol, held due to 1st degree HB with prolonged AK interval, borderline HR (56-60) - Start amlodipine 5mg Assessment & Plan (05/30/2020 1:28 PM CDT): On home carvedilol, held due to 1st degree HB with prolonged AK interval, borderline HR (56-60) - Start amlodipine 5mg Assessment & Plan (05/29/2020 10:58 AM CDT): On home carvedilol, held due to 1st degree HB with prolonged AK interval, borderline HR (56-60) - Start amlodipine 5mg Assessment & Plan (05/26/2020 12:36 PM CDT): On home carvedilol, held due to 1st degree HB with prolonged AK interval, borderline HR (56-60) - Start amlodipine [...] week 03/12/2023 How often do you attend [facility] or adventist services? Never 03/12/2023 Do you belong to [...] place to sleep or slept in a [facility] (including now)? No 03/12/2023 Personal Safety Answer Date Recorded Have you ever been in or are you currently in a harmful physical or emotional relationship or is someone making you feel afraid or unsafe? Denies 04/16/2023 Sex and Gender Information Value Date Recorded Sex Assigned at Not on file Legal Sex Male 4:17 AM HEAVY RAIL TRAIN OPERATOR Gender Identity Not on file Sexual [...] MD LAB BLOOD ORDERABLES Final Result LEANDRO [address] [facility] Department [place] [address] * Hemoglobin A1c (02/15/2023 5:16 AM CDT) Pathologist [facility] Hgb A1C 5.5 4.0 - 5.6 % [facility] Estimated Average Glucose 111 mg/dL LEANDRO CLARKE [...] MD LAB BLOOD ORDERABLES Final Result LEAN[facility]O [facility] Department [place] [address] * (ABNORMAL) Lipid panel (02/15/2023 5:16 AM CDT) Cholesterol 75 30 - 199 mg/dL [facility] Comment: Interpretive Data Ages < or = [...] revised on 2018. Triglycerides 81 <=149 mg/dL [facility] Comment: Interpretive Data Ages < or = [...] on 2018. HDL 26(L) >=40 mg/dL [facility] Comment: Interpretive Data Ages < or = [...] 2018. LDL, calculated 33 <=129 mg/dL [facility] Comment: Interpretive Data Ages < or = [...] last revised on 2018. Chol/HDL ratio 3 [facility] Blood 02/15/2023 5:16 AM CDT 02/15/2023 5:57 AM CDT us Marcella Arias MD LAB BLOOD ORDERABLES Final Result [facility] Department [place] [address] * COLONOSCOPY (11/03/2021 12:44 PM HEAVY RAIL TRAIN OPERATOR) Anatomical Region Laterality Modality Other Narrative Procedure Note Brayden Lerma MD - 11/03/2021 12:44 PM CST [facility] Endoscopy Lab Patient Name: Kobi Salter Procedure Date: 11/03/2021 12:44 PM Date of : 1965 Admit Type: Outpatient Age: 56 Gender: Male Note Status: Finalized Attending MD: Brayden Lerma M.D. Procedure Date: 11/03/2021 Procedure: Colonoscopy Indications: Chronic diarrhea Patient Profile: This is a 56 year old male. Diarrhea. Providers: Brayden Lerma M.D., Teresa Ross, UNIONMELT OPERATOR (Anesthesia Staff), Gini Izquierdo RN, Jose A Vuong,Edger Saw Operator Referring MD: Jewels Lamas M.D. Medicines: [...] bowel preparation was evaluated using the BBPS ([place] Bowel Preparation Scale)with scores of: Right Colon [...] * Hepatitis C antibody (09/20/2020 8:35 PM HEAVY RAIL TRAIN OPERATOR) Hep C Ab Nonreactive Nonreactive LEANDRO [facility] Comment:Antibodies to HCV no t detected. Does NOT exclude the possibility of recent exposure to HCV. Blood specimen (specimen) 09/20/2020 8:35 PM HEAVY RAIL TRAIN OPERATOR 09/20/2020 10:17 PM HEAVY RAIL TRAIN OPERATOR us Jasson Teague NP LAB MICROBIOLOGY - GENE RAL ORDERABLES Final Result LEANDRO [facility] Department [place] [address] from Last 3 Months or Most Recently Relevant to Health Maintenance
--- OUTSIDE RECORDS SUMMARY | 2025-06-25 14:58 | XMS_ITS | Clinical Summary ---
Author Organization [facility] [address] [place] [address] Care Team Providers Care Bone Cooking Operator Name Role Phone Frandy Colunga MD Unavailable [phone] Alcon QuintanillaM Unavailable [phone] No, Physician Primary Care Provider [phone] Theodore Solis MD Unavailable [phone] Leah MARINO MD, Raul Vance Unavailable [phone] Allergies Active Allergy Reactions Criticality Noted Date [...] no signs of displacement. Discussed extensively with global risk management director and therapy. We will proceed with [...] GI. I reminded patient has sister and global risk management director at this appointment at [facility] at 1:[address] Bradley. We [...] PM CDT): Nonoperative management was recommended at [facility] earlier this summer. We will arrange outpatient follow up with Orthopedics but seems to be asymptomatic on that leg Assessment & Plan (03/26/2023 3:12 PM CDT): As per HPI, pain seems somewhat better controlled on current regimen. Recent x- rays did not show any new fractures. I reminded global risk management director the patient appears to still need appointment made with Orthopedics at [place]. Phone #[phone] Assessment & Plan (03/18/2023 4:48 PM CDT): [...] as pain control with oxycodone. Discussed with global risk management director about getting follow up with Orthopedics [...] status seems to be slowly improving. Reminded global risk management director that patient has on April 23 appointment with Neurosurgery at [facility] at 1:30 p.m. along with the [...] to be clinically improving neurologically. Discussed with global risk management director about getting neurosurgery follow up in [...] 08/08/2021 Assessment & Plan (10/27/2021 3:09 PM EXPLOSIVE ORDNANCE MANAGER): EGD/Colonoscopy scheduled for 11/03/21 Hold aspirin 10/29/21 Assessment & Plan (08/15/2021 1:41 PM EXPLOSIVE ORDNANCE MANAGER): Patient was referred for colonoscopy and has appointment with GI. Abdominal pain has resolved. Assessment & Plan (08/08/2021 12:33 PM EXPLOSIVE ORDNANCE MANAGER): Last colonoscopy 2012 (Unavailable). Recurrent rectal pain and diarrhea. No hemorrhoids. Check CBC. Encounter for surgical after care following surgery of circulatory system 06/16/2021 Chronic diarrhea 06/06/2021 Assessment & Plan (10/03/2021 9:10 AM EXPLOSIVE ORDNANCE MANAGER): Pt was given Lomotil due to diarrhea and now c/o constipation. Resume questran and loperamide when constipation resolved. Assessment & Plan (07/28/2021 12:53 PM EXPLOSIVE ORDNANCE MANAGER): Pt was given Lomotil due to diarrhea and now c/o constipation. Resume questran and loperamide when constipation resolved. Assessment & Plan (07/18/2021 1:25 PM EXPLOSIVE ORDNANCE MANAGER): Continue cholestyramine and loperamide. Assessment & Plan [...] therapy Assessment & Plan (10/03/2021 9:09 AM EXPLOSIVE ORDNANCE MANAGER): Patient's pain is controlled with T[place]ewell Patient needs AKA wound functional level for prosthesis for transfer and ambulation on level surfaces at a fixed candence Assessment & Plan (06/14/2021 2:19 PM CDT): Percocet change to [place] as patient could not tolerate Assessment & Plan (05/31/2021 1:38 PM CDT): Continue PT/OT. Recurrent major depressive disorder, in remissio n 05/31/2021 Assessment & Plan (03/18/2023 4:46 PM CDT): Cont remeron, stable but fluctuates due to recent hosp stay and illnesses Assessment & Plan (07/28/2021 12:53 PM EXPLOSIVE ORDNANCE MANAGER): Continue Remeron and Zoloft. Assessment & Plan [...] tomorrow. Assessment & Plan (10/03/2021 9:11 AM EXPLOSIVE ORDNANCE MANAGER): Continue Tradjenta and Glargine. Blood sugars have been stable between 70 and 150 Assessment & Plan (09/05/2021 12:27 PM EXPLOSIVE ORDNANCE MANAGER): Continue Tradjenta and Glargine. Check A1c every 90 days. Assessment & Plan (08/01/2021 11:57 AM EXPLOSIVE ORDNANCE MANAGER): Blood glucose 110 - 138 Continue Glargine and Tradjenta Assessment & Plan (07/18/2021 1:24 PM EXPLOSIVE ORDNANCE MANAGER): Continue Tradjenta and glargine insulin. Assessment & [...] ich Assessment & Plan (10/03/2021 9:09 AM EXPLOSIVE ORDNANCE MANAGER): Not on anticoagulation. Continue Metoprolol, Aspirin. Assessment & Plan (08/01/2021 11:54 AM EXPLOSIVE ORDNANCE MANAGER): Not on anticoagulation. Continue Metoprolol, Aspirin. 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 Assessment & Plan (10/27/2021 3:10 PM EXPLOSIVE ORDNANCE MANAGER): Continue hemodialysis weekly. Assessment & Plan (08/07/2021 10:27 AM EXPLOSIVE ORDNANCE MANAGER): Currently on Sevelamer and Ferrous sulfate. Hemodialysis three days weekly. Assessment & Plan (07/14/2021 1:51 PM EXPLOSIVE ORDNANCE MANAGER): Continue Sevelamer and Ferrous sulfate. Assessment & [...] schedule Assessment & Plan (09/21/2020 8:33 AM EXPLOSIVE ORDNANCE MANAGER): - ESRD on dialysis as of August [...] Renvela. Assessment & Plan (09/15/2020 11:00 AM EXPLOSIVE ORDNANCE MANAGER): - Related to increased needs, chronic illness/injury and wounds - Nutrition consulted - Consistent carb diet. Will allow double portions of meat. - Supplements ordered Foot ulcer due to secondary DM 09/13/2020 Assessment & Plan (09/21/2020 8:32 AM EXPLOSIVE ORDNANCE MANAGER): Right foot wounds appeared about 1 month [...] Continue aspirin + Plavix daily Atherosclerosis of alturas artery of right lower extremity 09/06/2020 Overview (09/06/2020): Added automatically from request for surgery [id number] Peripheral arterial disease ([facility]) 09/06/2020 Overview (09/06/2020): Added automatically from request for surgery [id number] Assessment & Plan (03/06/2023 4:14 PM CDT): Continue medical management with statin. Patient is status post bilateral amputations for this reason Assessment & Plan (10/03/2021 9:13 AM EXPLOSIVE ORDNANCE MANAGER): Patient to continue aspirin Assessment & Plan [...] chair Assessment & Plan (09/18/2020 8:47 AM EXPLOSIVE ORDNANCE MANAGER): - s/p left BKA 05/2020. Presents now [...] 06/23/2020 Assessment & Plan (09/05/2021 12:26 PM EXPLOSIVE ORDNANCE MANAGER): Continue working with PT/OT. Follow up outpatient for prosthetic. Assessment & Plan (08/15/2021 1:43 PM EXPLOSIVE ORDNANCE MANAGER): Continue PT/OT Continue outpatient follow up for prosthetic on 08/21/21 (2pm), 08/28/21 (11am), and 09/06/21 (11am). Assessment & Plan (08/08/2021 12:35 PM EXPLOSIVE ORDNANCE MANAGER): Seen outpatient for prosthetic yesterday and has follow up again 08/21/21 (2pm), 08/28/21 (11am), and 09/06/21 (11am) Assessment & Plan (08/07/2021 10:29 AM EXPLOSIVE ORDNANCE MANAGER): Denies phanthom limb pain. Pain controlled cyclobenzaprine, Acetaminophen, and Gabapentin. Assessment & Plan (08/01/2021 11:53 AM EXPLOSIVE ORDNANCE MANAGER): Continue Aspirin and Gabapentin. Pain well controlled. Assessment & Plan (07/07/2021 12:45 PM CDT): Follow-up outpatient for prosthesis (car changer) Continue gabapentin, acetaminophen, and physical and occupational therapy as tolerated. Assessment & Plan (06/29/2021 1:45 PM CDT): Patient measured for below-knee electronic prepress system operator is yesterday and will follow-up for fitting (car changer). Incision well-healed. Continue PT/OT. Continue gabapentin and acetaminophen. Assessment & Plan (06/19/2021 1:55 PM CDT): Patient had follow-up with vascular surgeon. Sutures removed and patient recommended for residual limb electronic prepress system operator. Pain well controlled. Continue PT/OT Assessment & Plan (06/08/2021 3:02 PM CDT): Patient unable to tolerate oxycodone due to increased confusion. Discussed with MD and will discontinue oxycodone and changed to T[place]ewell to help with postoperative pain. Assessment & [...] and [facility] rehab per group social worker Assessment & Plan (06/29/2020 9:55 [...] 7 day course completed Need to take mcacnn out today Assessment & Plan (06/29/2020 9:51 [...] 05/19/2020 Assessment & Plan (07/14/2021 1:52 PM EXPLOSIVE ORDNANCE MANAGER): Continue Lasix 40 mg daily Assessment & Plan (09/15/2020 10:36 AM EXPLOSIVE ORDNANCE MANAGER): - Echo from 05/2020 LVEF 34% otherwise [...] degree HB on tele w/ very prolonged HI interval and resting bradycardia to mid 50-60s [...] degree HB on tele w/ very prolonged HI interval and resting bradycardia to mid 50-60s [...] degree HB on tele w/ very prolonged HI interval and resting bradycardia to mid 50s, [...] degree HB on tele w/ very prolonged HI interval and resting bradycardia to mid 50s, [...] degree HB on tele w/ very prolonged HI interval, consider restarting - on Entresto 49-51 [...] degree HB on tele w/ very prolonged HI interval, consider restarting - on Entresto 49-51 [...] degree HB on tele w/ very prolonged HI interval. Restart if able. - on Entresto [...] degree HB on tele w/ very prolonged HI interval. Restart if able. - on Entresto [...] Plan (05/19/2020 9:20 AM CDT): - BNP 62314 - Restart home carvedilol - Diuresis 2017 [...] (05/18/2020): Added automatically from request for surgery [id number] Assessment & Plan (06/01/2020 10:34 AM CDT): [...] (05/19/2020): Added automatically from request for surgery [id number] Assessment & Plan (02/28/2023 9:46 AM CDT): [...] eye. Assessment & Plan (09/22/2019 3:29 PM EXPLOSIVE ORDNANCE MANAGER): New cataract evaluation today Mature cataract OS [...] on admission with NSR with severely prolonged HI - as noted above, resuming low dose coreg - telemetry Assessment & Plan (06/29/2020 9:55 AM CDT): History of post-op AF - Not on AC on admission, ECG on admission with NSR with severely prolonged HI - as noted above, resuming low dose coreg - telemetry Assessment & Plan (06/28/2020 10:30 AM CDT): History of post-op AF - Not on AC on admission, ECG on admission with NSR with severely prolonged HI - Holding coreg for now while on dobutamine - telemetry Assessment & Plan (06/27/2020 1:26 PM CDT): History of post-op AF - Not on AC on admission, ECG on admission with NSR with severely prolonged HI - Holding coreg for now while on dobutamine - telemetry Assessment & Plan (06/26/2020 12:02 PM CDT): History of post-op AF - Not on AC on admission, ECG on admission with NSR with severely prolonged HI - Holding coreg for now while on dobutamine - telemetry Assessment & Plan (06/25/2020 2:28 PM CDT): History of post-op AF - Not on AC on admission, ECG on admission with NSR with severely prolonged HI - Holding coreg for now while on dobutamine - telemetry Assessment & Plan (06/24/2020 3:35 PM CDT): History of post-op AF - Not on AC on admission, ECG on admission with NSR with severely prolonged HI - Holding coreg for now while on dobutamine - telemetry Assessment & Plan (06/23/2020 9:22 AM CDT): History of post-op AF - Not on AC on admission, ECG on admission with NSR with severely prolonged HI - Holding coreg for now while on dobutamine - telemetry Assessment & Plan (06/22/2020 12:01 PM CDT): History of post-op AF - Not on AC on admission, ECG on admission with NSR with severely prolonged HI - Holding coreg for now while on dobutamine - telemetry Assessment & Plan (06/21/2020 10:44 AM CDT): History of post-op AF - Not on AC on admission, ECG on admission with NSR with severely prolonged HI - Holding coreg for now while on dobutamine - telemetry Assessment & Plan (06/20/2020 11:49 AM CDT): History of post-op AF - Not on AC on admission, ECG on admission with NSR with severely prolonged HI - Holding coreg for now while on [...] - Pt remains under wound care at [facility]. - Discussed with patient the rational for treatment, culture results, risk of recurrent infection, signs/symptoms of recurrent infection, and to contact ID clinic with any questions or concerns. Assessment & Plan (06/30/2020 10:47 AM CDT): S/p L BKA - Continue daily wound care - PT/OT eval and treat [facility]. Assessment & Plan (06/29/2020 9:57 [...] Obesity 01/03/2015 Diabetes mellitus type II, uncontrolled ([facility] ) 08/18/2013 Overview (05/26/2020): May 2020: [...] QID Assessment & Plan (09/15/2020 10:36 AM EXPLOSIVE ORDNANCE MANAGER): - Hgb A1c 8.5% 05/2020, 5.5% 09/2019 [...] as current doses - follow-up with his cmm programmer at [facility] for long-term therapy decisions. Consider GLP-1 agonist [...] plavix Assessment & Plan (09/14/2020 11:01 AM EXPLOSIVE ORDNANCE MANAGER): - s/p CABG [address] Sae [...] Isordil Assessment & Plan (09/17/2020 6:52 AM EXPLOSIVE ORDNANCE MANAGER): - VS Q4 hrs - Continue home Lasix, hydralazine, metoprolol, Isordil Assessment & Plan (06/28/2020 10:41 AM CDT): - Elevated blood pressure - continue hydralazine 100 mg tid, isosorbide 40 mg tid - Coreg held with recent COUNSELOR AID, likely resume low dose tomorrow Assessment & Plan (06/27/2020 1:27 PM CDT): - Elevated blood pressure - continue hydralazine 100 mg tid, isosorbide 40 mg tid - Coreg held with recent COUNSELOR AID, likely resume tomorrow Assessment & Plan (06/26/2020 12:05 PM CDT): -Elevated blood pressure - continue hydralazine 100 mg tid, isosorbide 40 mg tid -Coreg held while on COUNSELOR AID Assessment & Plan (06/25/2020 2:31 PM CDT): -Elevated blood pressure - continue hydralazine 100 mg tid, isosorbide 40 mg tid -Coreg held while on COUNSELOR AID Assessment & Plan (06/24/2020 3:58 PM CDT): -Elevated blood pressure - continue hydralazine 100 mg tid, isosorbide 40 mg tid -Coreg held while on COUNSELOR AID Assessment & Plan (06/23/2020 10:00 AM CDT): Elevated blood pressure - continue hydralazine 100 mg tid, isosorbide 40 mg tid Off carvedilol while being on dobutamine Continue to monitor Assessment & Plan (05/31/2020 11:11 AM CDT): On home carvedilol, held due to 1st degree HB with prolonged HI interval, borderline HR (56-60) - Start amlodipine 5mg Assessment & Plan (05/30/2020 1:28 PM CDT): On home carvedilol, held due to 1st degree HB with prolonged HI interval, borderline HR (56-60) - Start amlodipine 5mg Assessment & Plan (05/29/2020 10:58 AM CDT): On home carvedilol, held due to 1st degree HB with prolonged HI interval, borderline HR (56-60) - Start amlodipine 5mg Assessment & Plan (05/26/2020 12:36 PM CDT): On home carvedilol, held due to 1st degree HB with prolonged HI interval, borderline HR (56-60) - Start amlodipine 5mg Assessment & Plan (04/09/2018 2:22 PM CDT): Blood pressure within target Resolved Problems Problem Noted Date Diagnosed Date Resolved Date Diabetic ulcer of right fifth toe 11/14/2020 12/01/2020 Overview (11/17/2020): Added automatically from request for surgery [id number] Foot ulcer 11/14/2020 12/01/2020 Overview (11/22/2020): Added automatically from request for surgery [id number] Ulcer of right foot with bon e involvement without evidence of necrosis 11/14/2020 12/01/2020 Overview (11/22/2020): Added automatically from request for surgery [id number] Wound of left leg 11/14/2020 12/01/2020 Overview (11/25/2020): Added automatically from request for surgery [id number] Immunizations Immunization Administration Dates Next Due Influenza, Quadrivalent, Spl it, Preservative Free, Intramuscular 07/01/2020 Influenza, Unspecified 06/16/2017,06/02/2017 Surgical History Surgery Date Site/Laterality Comments HI AMPUTATION TOE INTERPHALANGEAL JOINT 09/02/2011 - 09/01/2012 [...] Type 2 diabetes mellitus wit hout complications Insulin dependent type 2 olga lidia betes [...] of necrosis (HCC) 11/14/2020 Added automatically from req uest for surgery [id number] Foot ulcer (HCC) 11/14/2020 Added automatic ally from request for surgery [id number] Diabetic ulcer of right fift h toe (HCC) 11/14/2020 Added automatically from req uest for surgery [id number] Hypertension Hyperlipidemia Peripheral vascular disease Atrial fibrillation [...] week 03/12/2023 How often do you attend [facility] or roman catholic services? Never 03/12/2023 Do you belong to any clubs o r organizations such as pentecostal groups, unions, fraternal or athletic groups, or [...] place to sleep or slept in a fpc (including now)? No 03/12/2023 Personal Safety Answer Date Recorded Have you ever been in or are you currently in a harmful physical or emotional relationship or is someone making you feel afraid or unsafe? Denies 04/16/2023 Sex and Gender Information Value Date Recorded Sex Assigned at Not on file Legal Sex Male 4:17 AM EXPLOSIVE ORDNANCE MANAGER Gender Identity Not on file Sexual Orientation [...] Additional history exists Influenza Vaccine (#1) 2025 , 06/02/2020, 06/16/2017, Additional history exists Colon Cancer Screening-Colonoscopy 11/04/2031 11/03/2021 Hepatitis C Screening Completed 09/20/2020 Colon Cancer Screening-CT Colonography Discontinued 11/03/2021 Colon Cancer Screening-DNA Stool Discontinued 11/04/19 Colon Cancer Screening-FIT Discontinued 11/03/2021 Colon Cancer Screening-Sigmoidoscopy Discontinued 11/03/2021 Hepatitis B Screening Completed 04/17/2023 Medical Devices Implanted Type Area Cotton Tipper Device Identifier Shelf Expiration Date Model / Serial / Lot ValeaWaveCheck [id number] - [id number] - [id number] Implanted:Qty: 1 on 02/24/2020 by Jeremias May MD at [facility] Advanced Medicine Lens Left: Eye [employer] 09/01/2022 [id number] / [id number] / [employer] [id number] Zilver Ptx 7mm 40mm 125cm Drug Elute Otw Delivery System - [id number] - [id number] Implanted:Qty: 1 on 09/16/2020 by Frandy Colunga MD at [facility] Stent Right: Femoral [employer] 12/02/2021 [id number] / [id number] / [id number] [employer] Medical [employer] [id number] Vascade 6/7fr Bioabsorbable Vascular System Compression Collagen - [id number] Implanted:Qty: 1 on 11/24/2020 by Eliseo Akins MD at [facility] [employer] 08/04/2022 [id number] / [id number] Procedures Procedure Name Priority Date/Time Associated Diagnosis Comments EGFR Routine 04/30/2023 3:09 AM CDT HEMOGLOBIN A1C STAT 02/15/2023 5:16 AM CDT LIPID PANEL STAT 02/15/2023 5:16 AM CDT COLONOSCOPY 11/03/2021 12:44 PM EXPLOSIVE ORDNANCE MANAGER HEPATITIS C ANTIBODY Routine 09/20/2020 8:35 PM EXPLOSIVE ORDNANCE MANAGER from Last 3 Months or Most Recently [...] MD LAB BLOOD ORDERABLES Final Result [facility] [address] [facility] Department [place] [address] * Hemoglobin A1c (02/15/2023 5:16 AM CDT) Hgb A1C 5.5 4.0 - 5.6 % [facility] Estimated Average Glucose 111 mg/dL [facility] Comment: The ADA recommends reporting an estimated [...] BLOOD ORDERABLES Final Result [facility] Department [place] [address] * (ABNORMAL) Lipid panel (02/15/2023 5:16 AM [...] on 2018. Triglycerides 81 <=149 mg/dL [facility] Comment: Interpretive Data Ages < or [...] on 2018. HDL 26(L) >=40 mg/dL [facility] Comment: Interpretive Data Ages < or [...] on 2018. LDL, calculated 33 <=129 mg/dL [facility] Comment: Interpretive Data Ages < or [...] revised on 2018. Non-HDL Cholesterol 49 mg/dL [facility] Comment: Interpretive Data Ages < or [...] last revised on 2018. Chol/HDL ratio 3 [facility] Blood 02/15/2023 5:16 AM CDT 02/15/2023 5:57 AM CDT us Marcella Arias MD LAB BLOOD ORDERABLES Final Result [facility] Department [place] [address] * COLONOSCOPY (11/03/2021 12:44 PM EXPLOSIVE ORDNANCE MANAGER) Anatomical Region Laterality Modality Other Narrative Procedure Note Brayden Lerma MD - 11/03/2021 12:44 PM CST [facility] Patient Name: Kobi Salter Procedure Date: 11/03/2021 12:44 PM Date of : 1965 Admit Type: Outpatient Age: 56 Gender: Male Note Status: Finalized Attending MD: Brayden Lerma M.D. Procedure Date: 11/03/2021 Procedure: Colonoscopy Indications: Chronic diarrhea Patient Profile: This is a 56 year old male. Diarrhea. Providers: Brayden Lerma M.D., Teresa Ross, CAPITAL EQUIPMENT SPECIALIST (Anesthesia Staff), Gini Izquierdo RN, Jose A Vuong,Address Change Clerk Referring MD: Jewels Lamas M.D. Medicines: [...] bowel preparation was evaluated using the BBPS ([place] Bowel Preparation Scale)with scores of: Right Colon [...] * Hepatitis C antibody (09/20/2020 8:35 PM EXPLOSIVE ORDNANCE MANAGER) Hep C Ab Nonreactive Nonreactive [facility] Comment:Antibodies to HCV no t detected. Does NOT exclude the possibility of recent exposure to HCV. Blood specimen (specimen) 09/20/2020 8:35 PM EXPLOSIVE ORDNANCE MANAGER 09/20/2020 10:17 PM EXPLOSIVE ORDNANCE MANAGER Jasson Teague NP LAB MICROBIOLOGY - GENE RAL ORDERABLES Final Result [facility] Department [place] [address] from Last 3 Months or Most Recently Relevant to Health Maintenance Additional Health Concerns Infection Onset Date Last Indicated MDR gram neg/ESBL 04/16/2023 04/16/2023 C. difficile 04/26/2023 04/26/[address] [place] [address] MEDICARE IDPA [facility] [place] [address] [place] [address] Advance Directives For more information, please contact: [phone] Documents on File Type Date Recorded Patient Physical Optics Teacher Expl anation ADVANCE DIRECTIVE 09/25/2020 7:52 AM POWER OF SEISMOGRAPH OBSERVER-MEDICAL * Full Code (Latest Code Status on [...] 11:56 AM 05/31/2021 12:12 AM Care Teams Bone Cooking Operator Relationship Specialty Start Date End Date No, Physician PCP - General 02/14/23 Frandy Colunga MD Surgeon Vascular Surgery 02/28/21 Alcon Quintanilla DPM Surgeon Podiatry 02/28/21 Theodore Solis MD [address] [place] [id number] Consulting Physician Internal Medicine 03/16/23 Raul Lynn IV, MD [address] [place] [id number] Consulting Physician General Surgery 04/30/23
--- OUTSIDE RECORDS SUMMARY | 2025-06-25 14:59 | XMS_ITS | Encounter Summary ---
Author Organization [facility] Healthcare Address [address] [place] [address] Care Team Providers Care Band Sawmill Operator Name Role Phone Mariposa Smalls RN Unavailable Warner Sidhu MD PhD Unavailable + Jewels Lamas MD Primary Care Provider + [phone] Mariposa Smalls RN Unavailable Frandy Colunga MD Unavailable [phone] Alcon Quintanilla DPM Unavailable [phone] No, Physician Primary Care Provider [phone] Theodore Solis MD Unavailable [phone] Leah MARINO MD, Lyman Lansing Unavailable [phone] Encounter Details Date Type Department Care Team (Late st Contact Info) Description 12/08/2020 Documentation [facility] Case Management [address] [place] [address] Elena Monzon LCSW Social History Tobacco Use [...] declined 06/20/2020 How often do you attend islam or hinduism serv ices? 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 Spoke to ED team and there are no respiratory concerns at this time. Becka Nation RN 09/13/2020 09/13/2020 04/05/2021 3:05 AM C DT MRSA 11/14/2020 11/18/2020 10/31/2021 4:00 AM TEST ENGINEERING TECHNICIAN COVID: Suspected 02/13/2021 02/13/2021 02/13/2021 10:13 PM CDT COVID: Suspected 04/22/2021 04/22/2021 04/22/2021 7:17 AM CDT VRE 05/19/2021 05/19/2021 11/15/2021 3:05 AM CDT COVID: Suspected 12/06/2022 12/06/2022 12/06/2022 2:04 PM CDT COVID: Suspected 03/10/2023 03/10/2023 03/10/2023 10:14 AM CDT MRSA 03/11/2023 04/16/2023 10/13/2023 3:05 AM TEST ENGINEERING TECHNICIAN MDR gram neg/ESBL 04/16/2023 04/16/2023 C. difficile 04/26/2023 04/26/2023 documented as of this encounter Care Teams Band Sawmill Operator Relationship Specialty Start Date End Date Jewels Lamas MD [address] [address] PCP - General Family Practice 09/06/20 02/13/23 No, Physician PCP - General 02/14/23 Mariposa Smalls RN [address] [address] Senior Electronics Design Engineer Cardiology 06/30/20 Warner Sidhu MD PhD [address] [address] Spiral Spring Winder Cardiology 06/30/20 03/29/21 Mariposa Smalls, RN [address] [address] Senior Electronics Design Engineer Cardiology 06/30/20 Frandy Colunga MD [address] [facility] [address] [place] [address] Surgeon Vascular Surgery 02/28/21 Alcon Quintanilla DPM [address] [facility] [address] [place] [address] Surgeon Podiatry 02/28/21 Theodore Solis MD [address] [place] [address] Consulting Physician Internal Medicine 03/16/23 Raul Lynn IV, MD [address] [place] [address] Consulting Physician General Surgery 04/30/23 documented as of this encounter
--- OUTSIDE RECORDS SUMMARY | 2025-06-25 14:59 | XMS_ITS | Encounter Summary ---
Author Organization [facility] Address [address] [place] [address] Phone Care Team Providers Care Checker Dump Grounds Name Role Phone Avery Tay MD Primary Care Provider [phone] No, Physician Primary Care Provider [phone] Avery Tay MD Primary Care Provider [phone] Mariposa Smalls RN Unavailable Warner Sidhu MD PhD Unavailable + Jewels Lamas MD Primary Care Provider + [phone] Mariposa Smalls RN Unavailable Frandy Colunga MD Unavailable [phone] Alcon Quintanilla DPM Unavailable [phone] No, Physician Primary Care Provider [phone] Theodore Solis MD Unavailable [phone] Leah MARINO MD, Raul Woodard Unavailable + [phone] Encounter Details Date Type Department Care Team (Latest Contact Info) Description 09/06/2017 Orders Only [facility] CONVERSION Scanning, Provider Social History Tobacco Use Types Packs/Day Years Used Date Smoking Tobacco: Never Assessed Sex and Gender Information Value Date Recorded Sex Assigned at Not on file 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 Gender Identity Not on file Sexual Orientation Not on file documented as of this encounter Plan of Treatment Not on file documented as of this encounter Procedures Procedure Name Priority Date/Time Associated Diagnosis Comments VASCULAR LABORATORY REPORT 09/12/2017 3:49 PM ELECTRIC RAZOR ASSEMBLER VASCULAR LABORATORY REPORT 09/06/2017 2:11 PM ELECTRIC RAZOR ASSEMBLER VASCULAR LABORATORY REPORT 09/06/2017 1:55 PM ELECTRIC RAZOR ASSEMBLER documented in this encounter Results * VASCULAR LABORATORY REPORT (09/12/2017 3:49 PM ELECTRIC RAZOR ASSEMBLER) Anatomical Region Laterality Modality Ultrasound us Provider Scanning CV VASCULAR PROCEDURES Final R esult * VASCULAR LABORATORY REPORT (09/06/2017 2:11 PM ELECTRIC RAZOR ASSEMBLER) Anatomical Region Laterality Modality Ultrasound us Provider Scanning CV VASCULAR PROCEDURES Final R esult * VASCULAR LABORATORY REPORT (09/06/2017 1:55 PM ELECTRIC RAZOR ASSEMBLER) Anatomical Region Laterality Modality Ultrasound us Provider [...] was positive for COVID19 on 08/07/[address] [facility]; lab in Care Everywhere. There are no present respiratory concerns for this admission. Patient presents for wound assessment and management. Pt meets Recovered criteria. Becka Nation RN 09/13/2020 09/13/2020 09/13/2020 11:00 PM ELECTRIC RAZOR ASSEMBLER COVID: Recovered Comment:09/13/2020 IP Review - See note below regarding prior positive on 08/07/20 at [facility]. Spoke to ED team and there are no respiratory concerns at this time. Becka Nation RN 09/13/2020 09/13/2020 04/05/2021 3:05 AM C DT MRSA 11/14/2020 11/18/2020 10/31/2021 4:00 AM ELECTRIC RAZOR ASSEMBLER COVID: Suspected 02/13/2021 02/13/2021 02/13/2021 10:13 PM CDT COVID: Suspected 04/22/2021 04/22/2021 04/22/2021 7:17 AM CDT VRE 05/19/2021 05/19/2021 11/15/2021 3:05 AM CDT COVID: Suspected 12/06/2022 12/06/2022 12/06/2022 2:04 PM CDT COVID: Suspected 03/10/2023 03/10/2023 03/10/2023 10:14 AM CDT MRSA 03/11/2023 04/16/2023 10/13/2023 3:05 AM ELECTRIC RAZOR ASSEMBLER MDR gram neg/ESBL 04/16/2023 04/16/2023 C. difficile 04/26/2023 04/26/2023 documented as of this encounter Care Teams Checker Dump Grounds Relationship Specialty Start Date End Date Avery Tay MD PCP - General 05/31/17 11/15/19 No, Physician PCP - General 11/16/19 02/23/20 Avery Tay MD PCP - General 02/24/20 09/05/20 Jewels Lamas MD [address] [address] PCP - General Family Practice 09/06/20 02/13/23 No, Physician PCP - General 02/14/23 Mariposa Smalls, RN [address] [address] Vision Rehabilitation Therapist Cardiology 06/30/20 Warner Sidhu MD PhD [address] [address] Spare Parts Clerk Cardiology 06/30/20 03/29/21 Mariposa Smalls, RN [address] [address] Vision Rehabilitation Therapist Cardiology 06/30/20 Frandy Colunga MD [address] [address] Surgeon Vascular Surgery 02/28/21 Alcon Quintanilla DPM [address] [address] Surgeon Podiatry 02/28/21 Theodore Solis MD [address] [place] [address] Consulting Physician Internal Medicine 03/16/23 Raul Lynn IV, MD [address] [place] [address] Consulting Physician General Surgery 04/30/23 documented as of this encounter
[2025-06-25 15:02] LABS: Alanine Aminotransferase 19 U/L (6-50); Albumin Level 3.0 g/dL (3.5-5.1); Alkaline Phosphatase 206 U/L (38-126); Anion Gap 6 mmol/L (4-12); Aspartate Amino Transferase 28 U/L (17-59); Bilirubin,Total 0.8 mg/dL (0.2-1.3); Blood Urea Nitrogen 15 mg/dL (9-20); Calcium 7.7 mg/dL (8.4-10.2); Carbon Dioxide 33 mmol/L (22-30); Chloride 96 mmol/L (98-107); Estimated Glomerular Filt Rate 38; Glucose 145 mg/dL (65-110); INR 1.6; Potassium 3.6 mmol/L (3.4-5.0); Prothrombin Time 18.7 Seconds (11.1-14.7); Sodium 135 mmol/L (137-145); Total Protein 7.6 g/dL (6.3-8.2)
[2025-06-25 15:03] LABS: Partial Thromboplastin Time 41.9 Seconds (22.3-36.8)
--- NOTE | 2025-06-25 17:12 | ED.GENADULT ---
HPI - General Adult General Chief complaint: Altered Mental Status Stated complaint: AMS Time Seen by Provider: 06/25/25 14:54 History of Present Illness HPI narrative: Patient is a 60-year-old male who was sent to the ER for confusion. He received his full dialysis treatment before being sent here. On arrival he had large diarrheal bowel movement. Family present reports he has been a bit more confused since starting a new pain medication at his facility. He did receive the medication today. Patient has no complaints of pain at this time. Patient has been getting his scheduled dialysis. No fevers or chills. No chest pain. Related Data Home Medications ?Medication ?Instructions ?Recorded ?Confirmed ?Last Taken ?Type ferrous sulfate 325 mg (65 mg 325 mg PO DAILY 06/01/20 03/10/25 03/02/24 History iron) tablet multivitamin 1 tablet PO DAILY 06/01/20 03/10/25 03/02/24 History nitroglycerin 0.4 mg sublingual 0.4 mg sublingual Q5-15M PRN Chest 06/01/20 03/10/25 Unknown History tablet Pain omega-3 fatty acids-fish oil 360 1 cap PO DAILY 06/01/20 03/10/25 03/02/24 History mg-1,200 mg capsule atorvastatin 40 mg tablet (Lipitor) 40 mg PO HS 12/23/20 03/10/25 03/02/24 History folic acid 1 mg tablet 1 mg PO DAILY 12/23/20 03/10/25 03/02/24 History gabapentin 100 mg tablet 200 mg PO HS 12/23/20 03/10/25 03/02/24 History sevelamer carbonate 800 mg tablet 800 mg PO DAILY@1700 12/23/20 03/10/25 03/02/24 History tamsulosin 0.4 mg capsule (Flomax) 0.4 mg PO DAILY 12/23/20 03/10/25 03/02/24 18:00 History linagliptin 5 mg tablet (Tradjenta) 5 mg PO DAILY 01/13/23 03/10/25 1 Day Ago History ~01/12/23 mirtazapine 15 mg tablet 15 mg PO HS 01/13/23 03/10/25 03/02/24 History sertraline 50 mg tablet 25 mg PO HS 01/13/23 03/10/25 03/02/24 History meclizine 25 mg tablet 25 mg PO Q8H PRN Dizziness 09/17/23 03/10/25 Unknown History midodrine 10 mg tablet 10 mg PO BID 09/17/23 03/10/25 03/02/24 14:00 History acetaminophen 325 mg tablet 650 mg PO Q6H PRN Pain (Scale 10/29/23 03/10/25 Unknown History (Tylenol) Score 1-3) naloxone 4 mg/actuation nasal spray 1 spray intranasal Q3M PRN Opioid 10/29/23 03/10/25 Unknown History Overdose sennosides 8.6 mg-docusate sodium 1 tablet PO BID PRN Constipation 10/29/23 03/10/25 Unknown History 50 mg tablet (Senna Plus) guaifenesin 100 mg/5 mL oral syrup 600 mg PO Q8H PRN Cough 03/03/24 03/10/25 Unknown History lanolin alcohols-mineral 1 applic topical QPM 03/03/24 03/10/25 03/02/24 History oil-w.petrolatum-ceresin topical cream (Eucerin topical cream) ascorbic acid (vitamin C) 500 mg 500 mg PO BID 03/10/25 03/10/25 Unknown History tablet famotidine 20 mg tablet 20 mg PO BID 03/10/25 03/10/25 Unknown History mirtazapine 7.5 mg tablet 7.5 mg PO HS 03/10/25 03/10/25 Unknown History nut.tx.imp.renal fxn,lac-reduc 1 ea PO HS 03/10/25 03/10/25 Unknown History 0.08 gram-1.8 kcal/mL oral liquid polyethylene glycol 3350 17 gram 17 g PO DAILY PRN constipation 03/10/25 03/10/25 Unknown History oral powder packet tizanidine 2 mg tablet 2 mg PO BID 03/10/25 03/10/25 Unknown History vitamin B complex-vitamin C-folic 1 tablet PO DAILY 03/10/25 03/10/25 Unknown History acid 0.8 mg tablet (Nephro-[place]annah) zinc sulfate 220 mg capsule 220 mg PO DAILY 03/10/25 03/10/25 Unknown History Allergies Allergy/AdvReac Type Severity Reaction Status Date / Time Penicillins Allergy Unknown Unknown Verified 04/25/25 07:33 bee venom protein (honey bee) Allergy Swelling Verified 04/25/25 07:33 Review of Systems Review of Systems: All systems reviewed & are unremarkable except as noted in HPI and below Constitutional: Constitutional: Reports no additional constitutional complaints ENT: Reports system reviewed and no additional complaints, except as documented Cardiovascular: Cardiovascular: Reports no additional cardiovascular complaints Respiratory: Respiratory: Reports no additional respiratory complaints Gastrointestinal: Gastrointestinal: Reports no additional gastrointestinal complaints Musculoskeletal: Musculoskeletal: Reports no additional musculoskeletal complaints [facility] Past Medical History Medical History Iron deficiency anemia MRSA infection Clostridium difficile diarrhea Paroxysmal atrial fibrillation Transient atrial fibrillation following bypass surgery. Coronary artery disease History of multiple stents and 4 vessel bypass. Type 2 diabetes mellitus Hyperlipidemia End-stage renal disease on hemodialysis Combined systolic and diastolic congestive heart failure Anxiety and depression Obstructive sleep apnea does not use a CPAP Anemia of chronic disease Diabetic nephropathy Diabetic peripheral neuropathy Arthritis Surgical History Surgical History History of right below knee amputation History of five vessel coronary artery bypass (2018) [facility] History of cataract extraction with lens replacement History of coronary artery stent placement History of cardiac catheterization History of left below knee amputation History of amputation of toe left 5th toe 2013 small toe on the right amputated Family History Family History Sibling Patient's sister is Diabetes mellitus Sister Acute myocardial infarction Three brothers and 2 sisters History of blood clots Sister Abdominal aortic aneurysm Sister Dementia Brother COPD (chronic obstructive pulmonary disease) Brother Father Acute myocardial infarction, Onset Age: 65 Mother History of blood clots Hypertension, Onset Age: 80 Social History Social History Social History: Surrogate medical decision maker: Melodie Roca (niece) or Alejandra Murray (sister). Code status: DNR/DNI Smoking packs per day: 0.25 Smoking cigarettes per day: 5.0 Years smoked: 30 Smoking pack-years: 7.50 Smoking status: Former smoker Alcohol intake: unknown Drinks per week: 2 Alcohol use details: Social alcohol use. Substance use: unknown Substance use type: marijuana Last use: 2019 Do You Feel Safe in your Home?: Yes Lack of Transportation: No Lack of Food: Never True Current Housing: I Have Housing Concerned About Future Housing: No Difficulty Paying Gas/Electric Bills: No Difficulty Paying for Meds: No Currently Unemployed: No Education: Don't Know Difficulty w/ Childcare or Family Care: No Additional living arrangements comments: [facility]. Additional occupation/education comments: Disabled. Spiritual care concerns: No Exam Narrative: GENERAL: Chronically ill-appearing, well-nourished, and in no acute distress. HEAD: Normocephalic, atraumatic. EYES: PERRL and EOMI. ENT: Mucous membranes moist. CHEST: Clear to auscultation. No respiratory distress. HEART: Regular rate and rhythm. Normal peripheral pulses. ABDOMEN: Soft, nontender, nondistended. EXTREMITIES: Bilateral BKA. No edema. SKIN: Warm, dry, no rash. Sacral decubitus ulcer about 5 cm by 4 cm that is deep without obvious bone exposure. No purulent discharge. No surrounding cellulitis. NEURO: Alert and oriented x2. PSYCH: Normal mood and affect. Course Course Emergency Course: Patient was initial sleepy on presentation but he is now wide awake. He still does not know the month but is oriented to self and place. Labs without significant abnormality. Patient can be discharged back to his facility. Recommend that they talked to his facility physician about referral to wound care regarding chronic decubitus ulcer of the sacrum. Vital Signs Vital signs: Vital Signs Pulse Rate 79 06/25/25 14:38 Respiratory Rate 22 H 06/25/25 14:38 Blood Pressure 120/57 L 06/25/25 14:38 Pulse Oximetry 95 06/25/25 14:38 Oxygen Delivery Room Air 06/25/25 14:38 Pulse Rate 71 06/25/25 16:46 Respiratory Rate 22 H 06/25/25 16:46 Blood Pressure 120/51 L 06/25/25 16:46 Pulse Oximetry 100 06/25/25 16:46 Oxygen Delivery Room Air 06/25/25 14:38 Medical Decision Making Vital Signs Vital Signs: Vital Signs Pulse Rate 79 06/25/25 14:38 Respiratory Rate 22 H 06/25/25 14:38 Blood Pressure 120/57 L 06/25/25 14:38 Pulse Oximetry 95 06/25/25 14:38 Oxygen Delivery Room Air 06/25/25 14:38 Pulse Rate 71 06/25/25 16:46 Respiratory Rate 22 H 06/25/25 16:46 Blood Pressure 120/51 L 06/25/25 16:46 Pulse Oximetry 100 06/25/25 16:46 Oxygen Delivery Room Air 06/25/25 14:38 Lab Data Lab results reviewed: Yes I reviewed the patient's lab results. 06/25/25 14:43 06/25/25 14:43 Labs: Lab Results 06/25/25 06/25/25 Range/Units 14:41 14:43 WBC 9.1 (4.5-10.0) K/mm3 RBC 3.58 L (4.6-6.20) M/mm3 Hgb 10.9 L (14.0-18.0) g/dL Hct 35.5 L (42.0-52.0) % MCV 99.2 (80-100) fl MCH 30.4 (26-34) pg MCHC 30.7 L (32-36) g/dl RDW 18.0 H (11.5-14.5) % Plt Count 122 L (150-375) k/mm3 MPV 10.8 H (7.4-10.4) fl Immature Gran % (Auto) 0.3 (0-0.5) % Neut % (Auto) 83.8 H (45.5-73.1) % Lymph % (Auto) 5.6 L (18.3-44.2) % [place] % (Auto) 8.4 (2.6-8.5) % Eos % (Auto) 1.3 (0-4.4) % Baso % (Auto) 0.6 (0.2-1.2) % Lymph # (Auto) 0.51 L (0.9-3.2) K/mm3 [place] # (Auto) 0.8 H (0.1-0.6) K/mm3 Eos # (Auto) 0.1 (0-0.3) K/mm3 Baso # (Auto) 0.1 (0.0-0.1) K/mm3 Abs Immat Gran (auto) 0.03 (0.00-0.031) K/mm3 Absolute Neuts (auto) 7.6 H (1.3-6.7) K/mm3 Absolute Nucleated RBC 0.000 (0.0-0.012) K/mm3 Nucleated RBC % 0.0 (0.0-0.2) % PT 18.7 H (11.1-14.7) Seconds INR 1.6 APTT 41.9 H (22.3-36.8) Seconds Sodium 135 L (137-145) mmol/L Potassium 3.6 (3.4-5.0) mmol/L Chloride 96 L (98-107) mmol/L Carbon Dioxide 33 H (22-30) mmol/L Anion Gap 6 (4-12) mmol/L BUN 15 D (9-20) mg/dL Creatinine 1.82 H (0.7-1.3) mg/dL Estim Creat Clear Calc Not Reportable Estimated GFR 38 L (59 - ) Glucose 145 H (65-110) mg/dL POC Capillary Glucose 143 H (65-105) mg/dl Calcium 7.7 L (8.4-10.2) mg/dL Total Bilirubin 0.8 (0.2-1.3) mg/dL AST 28 (17-59) U/L ALT 19 (6-50) U/L Alkaline Phosphatase 206 H (38-126) U/L Total Protein 7.6 (6.3-8.2) g/dL Albumin 3.0 L (3.5-5.1) g/dL Imaging Data Radiologist's impression: ITS Impressions Head CT 06/25/25 15:51 Impression: 1.No acute intracranial abnormality. ECG Data EKG #1: Attestation: I personally reviewed and interpreted this ECG as follows: ECG completion date: 06/25/25 ECG completion time: 14:39 EKG Interpretation: normal rate (71), sinus rhythm, non-specific ST changes and LBBB Discharge Plan Discharge Clinical Impression: Decubitus ulcer of sacral area Patient Disposition: Home Condition: Stable Instructions: Chronic Wounds (ED) Additional Instructions: Have your physician refer you to wound care at [facility] for further care of your sacral ulcer rib. Return the ER if you have new chest pain with shortness of breath, you have new confusion, or you have additional concerns. You may need to back off on your pain medication if is causing you to be sleepy or confused. Patient Language: Italian Prescriptions: No Action multivitamin Tablet 1 tablet PO DAILY ferrous sulfate 325 mg (65 mg iron) Tablet 325 mg PO DAILY nitroglycerin 0.4 mg Tablet, Sublingual 0.4 mg SUBLINGUAL Q5-15M PRN (Reason: Chest Pain) Rx Instructions: 3 dose max omega-3 fatty acids-fish oil 360-1,200 mg Capsule 1 cap PO DAILY atorvastatin [Lipitor] 40 mg Tablet 40 mg PO HS tamsulosin [Flomax] 0.4 mg Capsule 0.4 mg PO DAILY Rx Instructions: takes with evening meal folic acid 1 mg Tablet 1 mg PO DAILY gabapentin 100 mg Tablet 200 mg PO HS sevelamer carbonate 800 mg Tablet 800 mg PO DAILY@1700 mirtazapine 15 mg tablet 15 mg PO HS sertraline 50 mg tablet 25 mg PO HS Tradjenta 5 mg tablet 5 mg PO DAILY meclizine 25 mg Tablet 25 mg PO Q8H PRN (Reason: Dizziness) midodrine 10 mg Tablet 10 mg PO BID Patient Comments: hold if systolic bp is higher than 90 or diastolic greater than 60 Rx Instructions: takes at 0800 and 1400 acetaminophen [Tylenol] 325 mg Tablet 650 mg PO Q6H PRN (Reason: Pain (Scale Score 1-3)) sennosides-docusate sodium [Senna Plus] 8.6-50 mg Tablet 1 tablet PO BID PRN (Reason: Constipation) naloxone 4 mg/actuation spray,non-aerosol 1 spray INTRANASAL Q3M PRN (Reason: Opioid Overdose) mirtazapine 7.5 mg tablet 7.5 mg PO HS Rx Instructions: with 15mg tab famotidine 20 mg tablet 20 mg PO BID tizanidine 2 mg tablet 2 mg PO BID Rx Instructions: Mon, Wed, Fri nut.tx.imp.renal fxn,lac-reduc 0.08 gram-1.8 kcal/mL liquid 1 ea PO HS Rx Instructions: 1 can at hs ascorbic acid (vitamin C) 500 mg tablet 500 mg PO BID zinc sulfate 220 mg capsule 220 mg PO DAILY polyethylene glycol 3350 17 gram powder in packet 17 g PO DAILY PRN (Reason: constipation) Nephro-Savannah 0.8 mg tablet 1 tablet PO DAILY aspirin 325 mg Tablet,Delayed Release (Dr/Ec) 325 mg PO QAM Qty: 30 0RF hydrocodone-acetaminophen 5-325 mg tablet 1 tablet PO Q4H Qty: 20 0RF guaifenesin 100 mg/5 mL Syrup 600 mg PO Q8H PRN (Reason: Cough) Eucerin Cream 1 applic TOPICAL QPM diphenoxylate-atropine [Lomotil] 2.5-0.025 mg Tablet 2 tablet PO TID PRN (Reason: Diarrhea) Qty: 15 0RF Rx Instructions: do not exceed 10 days consecutively tramadol 50 mg tablet 50 mg PO Q4H PRN (Reason: Pain (Scale Score 4-6)) Qty: 15 0RF Follow-up/Referrals: Will,MD Theodore [Primary Care Provider, Unknown] - 1 Week
--- NOTE | 2025-06-25 18:20 | PC.NURSE ---
Pt. cleaned, placed in new depend, and repositioned.
--- NOTE | 2025-06-25 20:40 | PC.NURSE ---
pt visitor updated about transport. pt given boxed lunch.
--- NOTE | 2025-06-25 22:02 | PC.NURSE ---
This RN tried to call report to pts facility. This RN received no answer.
== END 2025-06-25 22:11 ==
PROVIDERS: Emergency Provider Emergency Medicine; PCP Internal Medicine
DX: L89.159 Pressure ulcer of sacral region, unspecified stage (principal); I25.10 Atherosclerotic heart disease of native coronary artery without angina pectoris; E11.22 Type 2 diabetes mellitus with diabetic chronic kidney disease; N18.6 End stage renal disease; Z99.2 Dependence on renal dialysis; E11.21 Type 2 diabetes mellitus with diabetic nephropathy; E11.42 Type 2 diabetes mellitus with diabetic polyneuropathy; I50.40 Unspecified combined systolic (congestive) and diastolic (congestive) heart failure; D63.8 Anemia in other chronic diseases classified elsewhere; G47.33 Obstructive sleep apnea (adult) (pediatric); F41.9 Anxiety disorder, unspecified; Z66 Do not resuscitate; F32.A Depression, unspecified; Z95.5 Presence of coronary angioplasty implant and graft; Z95.1 Presence of aortocoronary bypass graft; Z87.891 Personal history of nicotine dependence; Z86.14 Personal history of Methicillin resistant Staphylococcus aureus infection; Z96.1 Presence of intraocular lens; Z98.49 Cataract extraction status, unspecified eye; Z89.511 Acquired absence of right leg below knee; Z89.512 Acquired absence of left leg below knee; Z79.899 Other long term (current) drug therapy; Z79.82 Long term (current) use of aspirin; Z79.84 Long term (current) use of oral hypoglycemic drugs; I44.0 Atrioventricular block, first degree; I44.7 Left bundle-branch block, unspecified
CPT/HCPCS: 36415; 70450; 80053; 82948; 85025; 85610; 85730; 93005; 99284

== ENCOUNTER 2025-06-26 05:42 | Inpatient (IN) | payer MEDICARE, SELFPAY ==
[2025-06-26] VITALS (105 sets, daily range): BP systolic 86–140; BP diastolic 36–78; PULSE 55–81; RESP 11–30; TEMP 34.6–39.1; O2SAT 91–100; BMI 52.4
--- NOTE | ~2025-06-26 | XR_ITS ---
Examination: XR chest port-a-cath/central Clinical History: central line placement Comparison: Several hours prior Technique: Portable AP Findings: Left neck central line placement with catheter tip at junction of innominate veins. Cardiomegaly. Improving diffuse interstitial markings. No pneumothorax. No acute bony abnormality. IMPRESSION: 1. No pneumothorax after central line placement. 2. Improving interstitial pulmonary edema. Reviewed, dictated and finalized at location R.
--- NOTE | ~2025-06-26 | XR_ITS ---
MODIFIED ESOPHAGRAM HISTORY: Coughing with liquids TECHNIQUE: Modified barium esophagram was performed on 07/08/2025. I administered fluoroscopy and performed the exam with speech pathologist. Patient was seated for lateral fluoroscopic imaging for ingestion of thin liquids, pudding, solids and quantified amounts, followed by thin liquids in uncontrolled amounts. This was recorded on tape. A single fluoroscopic spot image was also recorded. The DAP for this procedure was 1.95 Gycm2. The amount of fluoroscopy time used during this procedure was 1.2 minutes. FINDINGS: Oral stage: Adequate function. Pharyngeal stage: Reduced laryngeal elevation and adduction. Reduced tongue base retraction. There is vallecular residue. Laryngeal penetration with aspiration with uncontrolled thin liquids. Cervical/esophageal stage: Adequate function. IMPRESSION: Pharyngeal dysphagia with laryngeal penetration and aspiration with uncontrolled thin liquids. Please correlate with speech pathologist findings and specific feeding recommendations. Reviewed, dictated and finalized at location A. LANE TESTER
--- NOTE | ~2025-06-26 | XR_ITS ---
Examination: XR chest 1V portable Clinical History: Pulmonary edema, pneumonia Comparison: 1 day prior Technique: Portable AP Findings: Left neck central line. Right subclavian stent. Cardiomegaly. Minimal worsening interstitial markings. No sizable pleural effusion or pneumothorax. No acute bony abnormality. IMPRESSION: 1. Mild interstitial pulmonary edema. Reviewed, dictated and finalized at location R.
--- NOTE | ~2025-06-26 | XR_ITS ---
Examination: XR chest 1V portable Clinical History: r/o aspiration Comparison: 06/28/2025 Technique: Portable AP Findings: Cardiomegaly. Persistent diffuse interstitial markings. Small opacity right base. No acute bony abnormality. IMPRESSION: 1. Persistent interstitial pulmonary edema and/or multifocal airspace disease. Reviewed, dictated and finalized at location R. ER OPERATOR
--- NOTE | ~2025-06-26 | XR_ITS ---
EXAMINATION: XR chest 1V portable COMPARISON: No comparisons available. HISTORY: Pulmonary edema, pneumonia FINDINGS: Moderate pulmonary venous congestion. Small left basilar infiltrate. No pneumothorax. Moderate cardiomegaly. Mediastinal and hilar contours are within normal limits. Poststernotomy. Miscellaneous: None Impression: CHF. Superimposed left lower lobe pneumonia suspected. The findings are progressed Reviewed, dictated and finalized at location P. Impression: CHF. Superimposed left lower lobe pneumonia suspected. The findings are progres sed
--- NOTE | ~2025-06-26 | XR_ITS ---
Examination: XR chest 1V portable Clinical History: shortness of breath, AMS Comparison: Chest x-ray 03/13/2025 Technique: Portable AP Findings: Cardiomegaly. Diffusely increased interstitial markings. Persistent bibasilar airspace opacities. No acute bony abnormality. IMPRESSION: 1. Interstitial pulmonary edema and/or pneumonitis 2. Persistent significant bibasilar atelectasis and/or airspace disease. Reviewed, dictated and finalized at location R.
--- NOTE | ~2025-06-26 | CT_ITS ---
CT abdomen pelvis w con Clinical History: decubitus ulcer . Comparison: CT abdomen pelvis 02/07/2023 Technique: Axial images lung bases to symphysis pubis IV contrast information not listed in PACS Coronal, sagittal reformats CT images acquired with automatic exposure control for dose reduction DLP: 978 mGy-cm Findings: Lung bases: Rounded atelectasis left side. Bibasilar atelectasis. Visualized heart and pericardium: Cardiomegaly. Liver: Unremarkable. Gallbladder: Removed. Spleen: Enlarged. Pancreas: Unremarkable. Adrenal glands: Unremarkable. Kidneys: Right kidney- No hydronephrosis. No renal stones. Left kidney- No hydronephrosis. No renal stones. Distal esophagus/stomach: Small metallic foreign body within gastric fundus. Small bowel loops: Normal caliber and wall thickness. Colon: Normal caliber and wall thickness. Normal RLQ appendix. Nodes: No enlarged nodes. Peritoneum: No ascites. No free air. Urinary bladder: Mild wall thickening. Prostate: Unremarkable. Bones: No acute bony abnormality. No evidence of osteomyelitis. Bilateral hip joint effusions not excluded Soft tissues: Skin thickening or decubitus wound over sacrum. Skin thickening or decubitus wound over left iliac. Skin thickening or decubitus wound over right hip. Skin thickening or decubitus wound over left hip. Right groin cyst or node. Aorta: No aneurysm or dissection. Diffuse atherosclerotic disease. IVC: Unremarkable. Main portal vein/SMV/splenic vein: Patent. IMPRESSION: 1. Decubitus wounds. 2. No evidence of osteomyelitis. 3. No evidence of associated abscess. 4. No acute abnormality within abdomen or pelvis. Reviewed, dictated and finalized at location R.
--- NOTE | 2025-06-26 05:51 | ECG_ITS ---
Test Date: 2025-06-26 06:12:32 Measurements Intervals [place] Rate: 76 P: 0 WI: 0 QRS: -85 QRSD: 132 T: 57 QT: 452 QTc: 510 Interpretive Statements SINUS RHYTHM WITHMARKED FIRST DEGREE AV BLOCK WITH FREQUENT VENTRICULAR PREMATURE COMPLEXES LEFT AXIS DEVIATION LEFT BUNDLE BRANCH BLOCK ABNORMAL ECG Compared to ECG 06/25/2025 14:39:48 VENTRICULAR PREMATURE COMPLEXES NOW PRESENT Electronically Signed On 06-26-2025 08:23:19 CDT by Nasim Gee D.O.
[2025-06-26 06:29] LABS: Hematocrit 30.7 % (42.0-52.0); Hemoglobin 9.4 g/dL (14.0-18.0); Immature Granulocyte Percent A 0.5 % (0-0.5); Lymphocytes Absolute Auto 0.20 K/mm3 (0.9-3.2); Mean Corpuscular HGB Conc 30.6 g/dl (32-36); Mean Corpuscular Hemoglobin 30.7 pg (26-34); Mean Corpuscular Volume 100.3 fl (80-100); Nucleated Red Blood Cells Absolute Auto 0.000 K/mm3 (0.0-0.012); Nucleated Red Blood Cells Perc 0.0 % (0.0-0.2); Platelet Count Result 149 k/mm3 (150-375); Red Blood Count 3.06 M/mm3 (4.6-6.20); White Blood Count 13.3 K/mm3 (4.5-10.0)
[2025-06-26 06:42] LABS: INR 1.8; Prothrombin Time 20.8 Seconds (11.1-14.7)
[2025-06-26 06:43] LABS: Partial Thromboplastin Time 41.6 Seconds (22.3-36.8)
[2025-06-26 06:48] LABS: Alanine Aminotransferase 18 U/L (6-50); Albumin Level 2.5 g/dL (3.5-5.1); Alkaline Phosphatase 198 U/L (38-126); Anion Gap 6 mmol/L (4-12); Aspartate Amino Transferase 28 U/L (17-59); Bilirubin,Total 0.9 mg/dL (0.2-1.3); Blood Urea Nitrogen 23 mg/dL (9-20); Calcium 7.4 mg/dL (8.4-10.2); Carbon Dioxide 32 mmol/L (22-30); Chloride 98 mmol/L (98-107); Creatine Kinase 94 U/L (55-170); Estimated Glomerular Filt Rate 23; Glucose 137 mg/dL (65-110); Potassium 3.4 mmol/L (3.4-5.0); Sodium 136 mmol/L (137-145); Total Protein 6.4 g/dL (6.3-8.2)
[2025-06-26] MEDS: ACETAMINOPHEN 650 MG SUPPOSITORY RECTAL (06:59)
--- NOTE | 2025-06-26 07:13 | PC.NURSE ---
This RN changed pts wound dressing.
--- OUTSIDE RECORDS SUMMARY | 2025-06-26 07:28 | XMS_ITS | Clinical Summary ---
Author Organization [facility] [place] [address] Address [address] [place] [address] Care Team Providers Care Store Person Name Role Phone Frandy Colunga MD Unavailable [phone] Alcon QuintanillaM Unavailable [phone], Physician Primary Care Provider [phone] Theodore Solis MD Unavailable [phone] Leah MARINO MD, Raul Vance Unavailable [phone] Allergies Active Allergy Reactions Criticality Noted Date [...] of displacement. Discussed extensively with director of financial aid and therapy. We will proceed with therapy [...] reminded patient has sister and director of financial aid at this appointment at [facility] at 1:[address] Bradley. [...] presented with mental status changes from the half-way and found to have acute cholecystitis. Likely acute metabolic encephalopathy. Treat underlying cause. Mental status is improving. Closed left subtrochanteric femur fracture, sequ christiana 02/28/2023 Assessment & Plan (04/09/2023 7:04 PM CDT): Ortho fu pending, aquilino phan Assessment & Plan (04/03/2023 5:26 PM CDT): Nonoperative management was recommended at [facility] earlier this summer. We will arrange outpatient follow up with Orthopedics but seems to be asymptomatic on that leg Assessment & Plan (03/26/2023 3:12 PM CDT): As per HPI, pain seems somewhat better controlled on current regimen. Recent x- rays did not show any new fractures. I reminded director of financial aid the patient appears to still need appointment made with Orthopedics at [place]. Phone #[phone] Assessment & Plan (03/18/2023 4:48 PM CDT): [...] control with oxycodone. Discussed with director of financial aid about getting follow up with Orthopedics in [...] to be slowly improving. Reminded director of financial aid that patient has on April 23 appointment with Neurosurgery at [facility] at 1:30 p.m. along with the details [...] clinically improving neurologically. Discussed with director of financial aid about getting neurosurgery follow up in about [...] 08/08/2021 Assessment & Plan (10/27/2021 3:09 PM FOOD AND BEVERAGE MANAGER): EGD/Colonoscopy scheduled for 11/03/21 Hold aspirin 10/29/21 Assessment & Plan (08/15/2021 1:41 PM FOOD AND BEVERAGE MANAGER): Patient was referred for colonoscopy and has appointment with GI. Abdominal pain has resolved. Assessment & Plan (08/08/2021 12:33 PM FOOD AND BEVERAGE MANAGER): Last colonoscopy 2012 (Unavailable). Recurrent rectal pain and diarrhea. No hemorrhoids. Check CBC. Encounter for surgical after care following surgery of circulatory system 06/16/2021 Chronic diarrhea 06/06/2021 Assessment & Plan (10/03/2021 9:10 AM FOOD AND BEVERAGE MANAGER): Pt was given Lomotil due to diarrhea and now c/o constipation. Resume questran and loperamide when constipation resolved. Assessment & Plan (07/28/2021 12:53 PM FOOD AND BEVERAGE MANAGER): Pt was given Lomotil due to diarrhea and now c/o constipation. Resume questran and loperamide when constipation resolved. Assessment & Plan (07/18/2021 1:25 PM FOOD AND BEVERAGE MANAGER): Continue cholestyramine and loperamide. Assessment & [...] therapy Assessment & Plan (10/03/2021 9:09 AM FOOD AND BEVERAGE MANAGER): Patient's pain is controlled with Placentia Patient needs AKA wound functional level for prosthesis for transfer and ambulation on level surfaces at a fixed candence Assessment & Plan (06/14/2021 2:19 PM CDT): Percocet change to Placentia as patient could not tolerate Assessment & Plan (05/31/2021 1:38 PM CDT): Continue PT/OT. Recurrent major depressive disorder, in remissio n 05/31/2021 Assessment & Plan (03/18/2023 4:46 PM CDT): Cont remeron, stable but fluctuates due to recent hosp stay and illnesses Assessment & Plan (07/28/2021 12:53 PM FOOD AND BEVERAGE MANAGER): Continue Remeron and Zoloft. Assessment & [...] tomorrow. Assessment & Plan (10/03/2021 9:11 AM FOOD AND BEVERAGE MANAGER): Continue Tradjenta and Glargine. Blood sugars have been stable between 70 and 150 Assessment & Plan (09/05/2021 12:27 PM FOOD AND BEVERAGE MANAGER): Continue Tradjenta and Glargine. Check A1c every 90 days. Assessment & Plan (08/01/2021 11:57 AM FOOD AND BEVERAGE MANAGER): Blood glucose 110 - 138 Continue Glargine and Tradjenta Assessment & Plan (07/18/2021 1:24 PM FOOD AND BEVERAGE MANAGER): Continue Tradjenta and glargine insulin. Assessment [...] - Given IV phos per renal 05/29 correction (current) use of antibiotics Assessment & Plan [...] ich Assessment & Plan (10/03/2021 9:09 AM FOOD AND BEVERAGE MANAGER): Not on anticoagulation. Continue Metoprolol, Aspirin. Assessment & Plan (08/01/2021 11:54 AM FOOD AND BEVERAGE MANAGER): Not on anticoagulation. Continue Metoprolol, Aspirin. 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 Assessment & Plan (10/27/2021 3:10 PM FOOD AND BEVERAGE MANAGER): Continue hemodialysis weekly. Assessment & Plan (08/07/2021 10:27 AM FOOD AND BEVERAGE MANAGER): Currently on Sevelamer and Ferrous sulfate. Hemodialysis three days weekly. Assessment & Plan (07/14/2021 1:51 PM FOOD AND BEVERAGE MANAGER): Continue Sevelamer and Ferrous sulfate. Assessment [...] schedule Assessment & Plan (09/21/2020 8:33 AM FOOD AND BEVERAGE MANAGER): - ESRD on dialysis as of [...] Renvela. Assessment & Plan (09/15/2020 11:00 AM FOOD AND BEVERAGE MANAGER): - Related to increased needs, chronic illness/injury and wounds - Nutrition consulted - Consistent carb diet. Will allow double portions of meat. - Supplements ordered Foot ulcer due to secondary DM 09/13/2020 Assessment & Plan (09/21/2020 8:32 AM FOOD AND BEVERAGE MANAGER): Right foot wounds appeared about 1 [...] Continue aspirin + Plavix daily Atherosclerosis of jena artery of right lower extremity 09/06/2020 Overview (09/06/2020): Added automatically from request for surgery [id number] Peripheral arterial disease ([facility]) 09/06/2020 Overview (09/06/2020): Added automatically from request for surgery [id number] Assessment & Plan (03/06/2023 4:14 PM CDT): Continue medical management with statin. Patient is status post bilateral amputations for this reason Assessment & Plan (10/03/2021 9:13 AM FOOD AND BEVERAGE MANAGER): Patient to continue aspirin Assessment & [...] peroneal, AT, PT plasties 09/[address] Colnuga. Now with right lateral foot wound and [...] chair Assessment & Plan (09/18/2020 8:47 AM FOOD AND BEVERAGE MANAGER): - s/p left BKA 05/2020. Presents [...] 06/23/2020 Assessment & Plan (09/05/2021 12:26 PM FOOD AND BEVERAGE MANAGER): Continue working with PT/OT. Follow up outpatient for prosthetic. Assessment & Plan (08/15/2021 1:43 PM FOOD AND BEVERAGE MANAGER): Continue PT/OT Continue outpatient follow up for prosthetic on 08/21/21 (2pm), 08/28/21 (11am), and 09/06/21 (11am). Assessment & Plan (08/08/2021 12:35 PM FOOD AND BEVERAGE MANAGER): Seen outpatient for prosthetic yesterday and has follow up again 08/21/21 (2pm), 08/28/21 (11am), and 09/06/21 (11am) Assessment & Plan (08/07/2021 10:29 AM FOOD AND BEVERAGE MANAGER): Denies phanthom limb pain. Pain controlled cyclobenzaprine, Acetaminophen, and Gabapentin. Assessment & Plan (08/01/2021 11:53 AM FOOD AND BEVERAGE MANAGER): Continue Aspirin and Gabapentin. Pain well controlled. Assessment & Plan (07/07/2021 12:45 PM CDT): Follow-up outpatient for prosthesis (hanger off) Continue gabapentin, acetaminophen, and physical and occupational therapy as tolerated. Assessment & Plan (06/29/2021 1:45 PM CDT): Patient measured for below-knee order builder is yesterday and will follow-up for fitting (hanger off). Incision well-healed. Continue PT/OT. Continue gabapentin and acetaminophen. Assessment & Plan (06/19/2021 1:55 PM CDT): Patient had follow-up with vascular surgeon. Sutures removed and patient recommended for residual limb order builder. Pain well controlled. Continue PT/OT Assessment & Plan (06/08/2021 3:02 PM CDT): Patient unable to tolerate oxycodone due to increased confusion. Discussed with MD and will discontinue oxycodone and changed to Placentia to help with postoperative pain. Assessment & [...] and OT Bed will be available at [facility] tomorrow Patient was not accepted at [facility] rehab per social media director Assessment & Plan (06/29/2020 9:55 AM [...] 05/19/2020 Assessment & Plan (07/14/2021 1:52 PM FOOD AND BEVERAGE MANAGER): Continue Lasix 40 mg daily Assessment & Plan (09/15/2020 10:36 AM FOOD AND BEVERAGE MANAGER): - Echo from 05/2020 LVEF 34% [...] degree HB on tele w/ very prolonged VA interval and resting bradycardia to mid 50-60s [...] degree HB on tele w/ very prolonged VA interval and resting bradycardia to mid 50-60s [...] degree HB on tele w/ very prolonged VA interval and resting bradycardia to mid 50s, [...] degree HB on tele w/ very prolonged VA interval and resting bradycardia to mid 50s, [...] degree HB on tele w/ very prolonged VA interval, consider restarting - on Entresto 49-51 [...] degree HB on tele w/ very prolonged VA interval, consider restarting - on Entresto 49-51 [...] degree HB on tele w/ very prolonged VA interval. Restart if able. - on Entresto [...] degree HB on tele w/ very prolonged VA interval. Restart if able. - on Entresto [...] Plan (05/19/2020 9:20 AM CDT): - BNP 22671 - Restart home carvedilol - Diuresis 2017 [...] (05/18/2020): Added automatically from request for surgery [id number] Assessment & Plan (06/01/2020 10:34 AM CDT): [...] (05/19/2020): Added automatically from request for surgery [id number] Assessment & Plan (02/28/2023 9:46 AM CDT): [...] eye. Assessment & Plan (09/22/2019 3:29 PM FOOD AND BEVERAGE MANAGER): New cataract evaluation today Mature cataract [...] on admission with NSR with severely prolonged VA - as noted above, resuming low dose coreg - telemetry Assessment & Plan (06/29/2020 9:55 AM CDT): History of post-op AF - Not on AC on admission, ECG on admission with NSR with severely prolonged VA - as noted above, resuming low dose coreg - telemetry Assessment & Plan (06/28/2020 10:30 AM CDT): History of post-op AF - Not on AC on admission, ECG on admission with NSR with severely prolonged VA - Holding coreg for now while on dobutamine - telemetry Assessment & Plan (06/27/2020 1:26 PM CDT): History of post-op AF - Not on AC on admission, ECG on admission with NSR with severely prolonged VA - Holding coreg for now while on dobutamine - telemetry Assessment & Plan (06/26/2020 12:02 PM CDT): History of post-op AF - Not on AC on admission, ECG on admission with NSR with severely prolonged VA - Holding coreg for now while on dobutamine - telemetry Assessment & Plan (06/25/2020 2:28 PM CDT): History of post-op AF - Not on AC on admission, ECG on admission with NSR with severely prolonged VA - Holding coreg for now while on dobutamine - telemetry Assessment & Plan (06/24/2020 3:35 PM CDT): History of post-op AF - Not on AC on admission, ECG on admission with NSR with severely prolonged VA - Holding coreg for now while on dobutamine - telemetry Assessment & Plan (06/23/2020 9:22 AM CDT): History of post-op AF - Not on AC on admission, ECG on admission with NSR with severely prolonged VA - Holding coreg for now while on dobutamine - telemetry Assessment & Plan (06/22/2020 12:01 PM CDT): History of post-op AF - Not on AC on admission, ECG on admission with NSR with severely prolonged VA - Holding coreg for now while on dobutamine - telemetry Assessment & Plan (06/21/2020 10:44 AM CDT): History of post-op AF - Not on AC on admission, ECG on admission with NSR with severely prolonged VA - Holding coreg for now while on dobutamine - telemetry Assessment & Plan (06/20/2020 11:49 AM CDT): History of post-op AF - Not on AC on admission, ECG on admission with NSR with severely prolonged VA - Holding coreg for now while on [...] - Pt remains under wound care at [facility]. - Discussed with patient the rational for treatment, culture results, risk of recurrent infection, signs/symptoms of recurrent infection, and to contact ID clinic with any questions or concerns. Assessment & Plan (06/30/2020 10:47 AM CDT): S/p L BKA - Continue daily wound care - PT/OT eval and treat Patient will be going to [facility] tomorrow. Assessment & Plan (06/29/2020 9:57 [...] Obesity 01/03/2015 Diabetes mellitus type II, uncontrolled ([facility] ) 08/18/2013 Overview (05/26/2020): May 2020: [...] QID Assessment & Plan (09/15/2020 10:36 AM FOOD AND BEVERAGE MANAGER): - Hgb A1c 8.5% 05/2020, 5.5% [...] as current doses - follow-up with his construction economist at [facility] for long-term therapy decisions. Consider GLP-1 [...] plavix Assessment & Plan (09/14/2020 11:01 AM FOOD AND BEVERAGE MANAGER): - s/p CABG [address] [...] Isordil Assessment & Plan (09/17/2020 6:52 AM FOOD AND BEVERAGE MANAGER): - VS Q4 hrs - Continue home Lasix, hydralazine, metoprolol, Isordil Assessment & Plan (06/28/2020 10:41 AM CDT): - Elevated blood pressure - continue hydralazine 100 mg tid, isosorbide 40 mg tid - Coreg held with recent ENGAGEMENT ENGINEER, likely resume low dose tomorrow Assessment & Plan (06/27/2020 1:27 PM CDT): - Elevated blood pressure - continue hydralazine 100 mg tid, isosorbide 40 mg tid - Coreg held with recent ENGAGEMENT ENGINEER, likely resume tomorrow Assessment & Plan (06/26/2020 12:05 PM CDT): -Elevated blood pressure - continue hydralazine 100 mg tid, isosorbide 40 mg tid -Coreg held while on ENGAGEMENT ENGINEER Assessment & Plan (06/25/2020 2:31 PM CDT): -Elevated blood pressure - continue hydralazine 100 mg tid, isosorbide 40 mg tid -Coreg held while on ENGAGEMENT ENGINEER Assessment & Plan (06/24/2020 3:58 PM CDT): -Elevated blood pressure - continue hydralazine 100 mg tid, isosorbide 40 mg tid -Coreg held while on ENGAGEMENT ENGINEER Assessment & Plan (06/23/2020 10:00 AM CDT): Elevated blood pressure - continue hydralazine 100 mg tid, isosorbide 40 mg tid Off carvedilol while being on dobutamine Continue to monitor Assessment & Plan (05/31/2020 11:11 AM CDT): On home carvedilol, held due to 1st degree HB with prolonged VA interval, borderline HR (56-60) - Start amlodipine 5mg Assessment & Plan (05/30/2020 1:28 PM CDT): On home carvedilol, held due to 1st degree HB with prolonged VA interval, borderline HR (56-60) - Start amlodipine 5mg Assessment & Plan (05/29/2020 10:58 AM CDT): On home carvedilol, held due to 1st degree HB with prolonged VA interval, borderline HR (56-60) - Start amlodipine 5mg Assessment & Plan (05/26/2020 12:36 PM CDT): On home carvedilol, held due to 1st degree HB with prolonged VA interval, borderline HR (56-60) - Start amlodipine 5mg Assessment & Plan (04/09/2018 2:22 PM CDT): Blood pressure within target Resolved Problems Problem Noted Date Diagnosed Date Resolved Date Diabetic ulcer of right fifth toe 11/14/2020 12/01/2020 Overview (11/17/2020): Added automatically from request for surgery [id number] Foot ulcer 11/14/2020 12/01/2020 Overview (11/22/2020): Added automatically from request for surgery [id number] Ulcer of right foot with bon e involvement without evidence of necrosis 11/14/2020 12/01/2020 Overview (11/22/2020): Added automatically from request for surgery [id number] Wound of left leg 11/14/2020 12/01/2020 Overview (11/25/2020): Added automatically from request for surgery [id number] Immunizations Immunization Administration Dates Next Due Influenza, Quadrivalent, Spl it, Preservative Free, Intramuscular 07/01/2020 Influenza, Unspecified 06/16/2017,06/02/2017 Surgical History Surgery Date Site/Laterality Comments VA AMPUTATION TOE INTERPHALANGEAL JOINT 09/02/2011 - 09/01/2012 [...] Added automatically from req uest for surgery [id number] Foot ulcer (HCC) 11/14/2020 Added automatic ally from request for surgery [id number] Diabetic ulcer of right fift h toe (HCC) 11/14/2020 Added automatically from req uest for surgery [id number] Hypertension Hyperlipidemia Peripheral vascular disease Atrial fibrillation [...] week 03/12/2023 How often do you attend [facility] or hoahaoism services? Never 03/12/2023 Do you belong to any clubs o r organizations such as caodaism groups, unions, fraternal or athletic groups, or [...] place to sleep or slept in a detention (including now)? No 03/12/2023 Personal Safety Answer Date Recorded Have you ever been in or are you currently in a harmful physical or emotional relationship or is someone making you feel afraid or unsafe? Denies 04/16/2023 Sex and Gender Information Value Date Recorded Sex Assigned at Not on file Legal Sex Male 4:17 AM FOOD AND BEVERAGE MANAGER Gender Identity Not on file Sexual [...] Completed 04/17/2023 Medical Devices Implanted Type Area Tank Pumper Panelboard Device Identifier Shelf Expiration Date Model / Serial / Lot [employer] [id number] - [id number] - [id number] Implanted:Qty: 1 on 02/24/2020 by Jeremias May MD at [facility] Advanced Medicine Lens Left: Eye [employer] 09/01/2022 [id number] / [id number] / [employer] [id number] Zilver Ptx 7mm 40mm 125cm Drug Elute Otw Delivery System - [id number] - [id number] Implanted:Qty: 1 on 09/16/2020 by Frandy Colunga MD at [facility] Stent Right: Femoral [employer] 12/02/2021 [id number] / [id number] / [id number] [employer] [id number] Vascade 6/7fr Bioabsorbable Vascular System Compression Collagen - [id number] Implanted:Qty: 1 on 11/24/2020 by Eliseo Akins MD at [facility] [employer] 08/04/2022 [id number] / / [id number] Procedures Procedure Name Priority Date/Time Associated Diagnosis Comments EGFR Routine 04/30/2023 3:09 AM CDT HEMOGLOBIN A1C STAT 02/15/2023 5:16 AM CDT LIPID PANEL STAT 02/15/2023 5:16 AM CDT COLONOSCOPY 11/03/2021 12:44 PM FOOD AND BEVERAGE MANAGER HEPATITIS C ANTIBODY Routine 09/20/2020 8:35 PM FOOD AND BEVERAGE MANAGER from Last 3 Months or Most [...] MD LAB BLOOD ORDERABLES Final Result [facility] [address] [facility] Department [place] [address] * Hemoglobin A1c (02/15/2023 5:16 AM CDT) Hgb A1C 5.5 4.0 - 5.6 % [facility] Estimated Average Glucose 111 mg/dL [facility] Comment: The ADA recommends reporting an [...] BLOOD ORDERABLES Final Result [facility] [place] [address] * (ABNORMAL) Lipid panel (02/15/2023 5:16 AM [...] on 2018. Triglycerides 81 <=149 mg/dL [facility] Comment: Interpretive Data Ages < or [...] on 2018. HDL 26(L) >=40 mg/dL [facility] Comment: Interpretive Data Ages < or [...] on 2018. LDL, calculated 33 <=129 mg/dL [facility] Comment: Interpretive Data Ages < [...] revised on 2018. Non-HDL Cholesterol 49 mg/dL [facility] Comment: Interpretive Data Ages < [...] last revised on 2018. Chol/HDL ratio 3 [facility] Blood 02/15/2023 5:16 AM CDT 02/15/2023 5:57 AM CDT us Marcella Arias MD LAB BLOOD ORDERABLES Final Result [facility] [place] [address] * COLONOSCOPY (11/03/2021 12:44 PM FOOD AND BEVERAGE MANAGER) Anatomical Region Laterality Modality Other Narrative Procedure Note Brayden Lerma MD - 11/03/2021 12:44 PM CST [facility] Patient Name: Kobi Salter Procedure Date: 11/03/2021 12:44 PM Date of : 1965 Admit Type: Outpatient Age: 56 Gender: Male Note Status: Finalized Attending MD: Brayden Lerma M.D. Procedure Date: 11/03/2021 Procedure: Colonoscopy Indications: Chronic diarrhea Patient Profile: This is a 56 year old male. Diarrhea. Providers: Brayden Lerma M.D., Teresa Ross, DE ICER INSTALLER (Anesthesia Staff), Gini Izquierdo RN, Jose A Vuong,Auto Clutch Specialist Referring MD: Jewels Lamas M.D. Medicines: Monitored [...] bowel preparation was evaluated using the BBPS ([place] Bowel Preparation Scale)with scores of: Right Colon [...] * Hepatitis C antibody (09/20/2020 8:35 PM FOOD AND BEVERAGE MANAGER) Hep C Ab Nonreactive Nonreactive [facility] Comment:Antibodies to HCV no t detected. Does NOT exclude the possibility of recent exposure to HCV. Blood specimen (specimen) 09/20/2020 8:35 PM FOOD AND BEVERAGE MANAGER 09/20/2020 10:17 PM FOOD AND BEVERAGE MANAGER Jasson Teague NP LAB MICROBIOLOGY - GENE RAL ORDERABLES Final Result [facility] Department [place] [address] from Last 3 Months or Most Recently Relevant to Health Maintenance Additional Health Concerns Infection Onset Date Last Indicated MDR gram neg/ESBL 04/16/2023 04/16/2023 C. difficile 04/26/2023 04/26/[address] [place] [address] [place] [address] MEDICARE [facility] Address: [address] [address] [place] [address] [employer] [facility] [place] [address] Advance Directives For more information, please contact: [phone] Documents on File Type Date Recorded Patient Snapper On Expl anation ADVANCE DIRECTIVE 09/25/2020 7:52 AM POWER OF TREE [employer] NUT [employer]OPS F[employer]ER[employer]ICAL * Full Code (Latest Code Status on [...] 11:56 AM 05/31/2021 12:12 AM Care Teams Store Person Relationship Specialty Start Date End Date No, Physician PCP - General 02/14/23 Frandy Colunga MD Surgeon Vascular Surgery 02/28/21 Alcon Quintanilla DPM Surgeon Podiatry 02/28/21 Theodore Solis MD [address] [place] [id number] Consulting Physician Internal Medicine 03/16/23 Raul Lynn IV, MD [address] [place] [id number] Consulting Physician General Surgery 04/30/23
--- OUTSIDE RECORDS SUMMARY | 2025-06-26 07:28 | XMS_ITS ---
Author Organization [facility] [place] [address] Address [address] [place] [address] Care Team Providers Care Balloon Dipper Name Role Phone Frandy Colunga MD Unavailable [phone] Alcon Quintanilla DPM Unavailable [phone] No, Physician Primary Care Provider Theodore Solis MD Unavailable [phone] Leah MARINO MD, Raul Woodard Unavailable [phone] Dialysis Access Sites Type Status Location Placement [...] 5:16 AM CDT COLONOSCOPY 11/03/2021 12:44 PM INSULATION MANAGER HEPATITIS C ANTIBODY Routine 09/20/2020 8:35 PM INSULATION MANAGER from Last 3 Months or Most [...] no signs of displacement. Discussed extensively with council on aging director and therapy. We will proceed with [...] GI. I reminded patient has sister and council on aging director at this appointment at [facility] [...] presented with mental status changes from the prison and found to have acute cholecystitis. Likely acute metabolic encephalopathy. Treat underlying cause. Mental status is improving. Closed left subtrochanteric femur fracture, sequ christiana 02/28/2023 Assessment & Plan (04/09/2023 7:04 PM CDT): Ortho fu pending, don aware Assessment & Plan (04/03/2023 5:26 PM CDT): Nonoperative management was recommended at [facility] earlier this summer. We will arrange outpatient follow up with Orthopedics but seems to be asymptomatic on that leg Assessment & Plan (03/26/2023 3:12 PM CDT): As per HPI, pain seems somewhat better controlled on current regimen. Recent x- rays did not show any new fractures. I reminded council on aging director the patient appears to still need appointment made with Orthopedics at [place]. Phone #[phone] Assessment & Plan (03/18/2023 4:48 PM CDT): [...] as pain control with oxycodone. Discussed with council on aging director about getting follow up with Orthopedics [...] status seems to be slowly improving. Reminded council on aging director that patient has on April 23 appointment with Neurosurgery at [facility] at 1:30 p.m. along with the [...] to be clinically improving neurologically. Discussed with council on aging director about getting neurosurgery follow up in [...] 08/08/2021 Assessment & Plan (10/27/2021 3:09 PM INSULATION MANAGER): EGD/Colonoscopy scheduled for 11/03/21 Hold aspirin 10/29/21 Assessment & Plan (08/15/2021 1:41 PM INSULATION MANAGER): Patient was referred for colonoscopy and has appointment with GI. Abdominal pain has resolved. Assessment & Plan (08/08/2021 12:33 PM INSULATION MANAGER): Last colonoscopy 2012 (Unavailable). Recurrent rectal pain and diarrhea. No hemorrhoids. Check CBC. Encounter for surgical after care following surgery of circulatory system 06/16/2021 Chronic diarrhea 06/06/2021 Assessment & Plan (10/03/2021 9:10 AM INSULATION MANAGER): Pt was given Lomotil due to diarrhea and now c/o constipation. Resume questran and loperamide when constipation resolved. Assessment & Plan (07/28/2021 12:53 PM INSULATION MANAGER): Pt was given Lomotil due to diarrhea and now c/o constipation. Resume questran and loperamide when constipation resolved. Assessment & Plan (07/18/2021 1:25 PM INSULATION MANAGER): Continue cholestyramine and loperamide. Assessment & [...] therapy Assessment & Plan (10/03/2021 9:09 AM INSULATION MANAGER): Patient's pain is controlled with Cecil Patient needs AKA wound functional level for prosthesis for transfer and ambulation on level surfaces at a fixed candence Assessment & Plan (06/14/2021 2:19 PM CDT): Percocet change to Cecil as patient could not tolerate Assessment & Plan (05/31/2021 1:38 PM CDT): Continue PT/OT. Recurrent major depressive disorder, in remissio n 05/31/2021 Assessment & Plan (03/18/2023 4:46 PM CDT): Cont remeron, stable but fluctuates due to recent hosp stay and illnesses Assessment & Plan (07/28/2021 12:53 PM INSULATION MANAGER): Continue Remeron and Zoloft. Assessment & [...] tomorrow. Assessment & Plan (10/03/2021 9:11 AM INSULATION MANAGER): Continue Tradjenta and Glargine. Blood sugars have been stable between 70 and 150 Assessment & Plan (09/05/2021 12:27 PM INSULATION MANAGER): Continue Tradjenta and Glargine. Check A1c every 90 days. Assessment & Plan (08/01/2021 11:57 AM INSULATION MANAGER): Blood glucose 110 - 138 Continue Glargine and Tradjenta Assessment & Plan (07/18/2021 1:24 PM INSULATION MANAGER): Continue Tradjenta and glargine insulin. Assessment [...] ich Assessment & Plan (10/03/2021 9:09 AM INSULATION MANAGER): Not on anticoagulation. Continue Metoprolol, Aspirin. Assessment & Plan (08/01/2021 11:54 AM INSULATION MANAGER): Not on anticoagulation. Continue Metoprolol, Aspirin. 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 Assessment & Plan (10/27/2021 3:10 PM INSULATION MANAGER): Continue hemodialysis weekly. Assessment & Plan (08/07/2021 10:27 AM INSULATION MANAGER): Currently on Sevelamer and Ferrous sulfate. Hemodialysis three days weekly. Assessment & Plan (07/14/2021 1:51 PM INSULATION MANAGER): Continue Sevelamer and Ferrous sulfate. Assessment [...] schedule Assessment & Plan (09/21/2020 8:33 AM INSULATION MANAGER): - ESRD on dialysis as of [...] Renvela. Assessment & Plan (09/15/2020 11:00 AM INSULATION MANAGER): - Related to increased needs, chronic illness/injury and wounds - Nutrition consulted - Consistent carb diet. Will allow double portions of meat. - Supplements ordered Foot ulcer due to secondary DM 09/13/2020 Assessment & Plan (09/21/2020 8:32 AM INSULATION MANAGER): Right foot wounds appeared about 1 [...] Continue aspirin + Plavix daily Atherosclerosis of [place] artery of right lower extremity 09/06/2020 Overview (09/06/2020): Added automatically from request for surgery [id number] Peripheral arterial disease ([facility]) 09/06/2020 Overview (09/06/2020): Added automatically from request for surgery [id number] Assessment & Plan (03/06/2023 4:14 PM CDT): Continue medical management with statin. Patient is status post bilateral amputations for this reason Assessment & Plan (10/03/2021 9:13 AM INSULATION MANAGER): Patient to continue aspirin Assessment & [...] chair Assessment & Plan (09/18/2020 8:47 AM INSULATION MANAGER): - s/p left BKA 05/2020. Presents [...] 06/23/2020 Assessment & Plan (09/05/2021 12:26 PM INSULATION MANAGER): Continue working with PT/OT. Follow up outpatient for prosthetic. Assessment & Plan (08/15/2021 1:43 PM INSULATION MANAGER): Continue PT/OT Continue outpatient follow up for prosthetic on 08/21/21 (2pm), 08/28/21 (11am), and 09/06/21 (11am). Assessment & Plan (08/08/2021 12:35 PM INSULATION MANAGER): Seen outpatient for prosthetic yesterday and has follow up again 08/21/21 (2pm), 08/28/21 (11am), and 09/06/21 (11am) Assessment & Plan (08/07/2021 10:29 AM INSULATION MANAGER): Denies phanthom limb pain. Pain controlled cyclobenzaprine, Acetaminophen, and Gabapentin. Assessment & Plan (08/01/2021 11:53 AM INSULATION MANAGER): Continue Aspirin and Gabapentin. Pain well controlled. Assessment & Plan (07/07/2021 12:45 PM CDT): Follow-up outpatient for prosthesis ([facility]) Continue gabapentin, acetaminophen, and physical and occupational therapy as tolerated. Assessment & Plan (06/29/2021 1:45 PM CDT): Patient measured for below-knee can filler is yesterday and will follow-up for fitting ([place]). Incision well-healed. Continue PT/OT. Continue gabapentin and acetaminophen. Assessment & Plan (06/19/2021 1:55 PM CDT): Patient had follow-up with vascular surgeon. Sutures removed and patient recommended for residual limb can filler. Pain well controlled. Continue PT/OT Assessment & Plan (06/08/2021 3:02 PM CDT): Patient unable to tolerate oxycodone due to increased confusion. Discussed with MD and will discontinue oxycodone and changed to Cecil to help with postoperative pain. Assessment & [...] and OT Bed will be available at [facility] tomorrow Patient was not accepted at [facility] rehab per elementary school social worker Assessment [...] 05/19/2020 Assessment & Plan (07/14/2021 1:52 PM INSULATION MANAGER): Continue Lasix 40 mg daily Assessment & Plan (09/15/2020 10:36 AM INSULATION MANAGER): - Echo from 05/2020 LVEF 34% [...] Plan (05/19/2020 9:20 AM CDT): - BNP 88976 - Restart home carvedilol - Diuresis 2017 [...] (05/18/2020): Added automatically from request for surgery [id number] Assessment & Plan (06/01/2020 10:34 AM CDT): [...] (05/19/2020): Added automatically from request for surgery [id number] Assessment & Plan (02/28/2023 9:46 AM CDT): [...] eye. Assessment & Plan (09/22/2019 3:29 PM INSULATION MANAGER): New cataract evaluation today Mature cataract [...] - Pt remains under wound care at [facility]. - Discussed with patient the rational for treatment, culture results, risk of recurrent infection, signs/symptoms of recurrent infection, and to contact ID clinic with any questions or concerns. Assessment & Plan (06/30/2020 10:47 AM CDT): S/p L BKA - Continue daily wound care - PT/OT eval and treat Patient will be going to [facility] rehabilitation tomorrow. Assessment & Plan [...] Obesity 01/03/2015 Diabetes mellitus type II, uncontrolled ([facility] ) 08/18/2013 Overview (05/26/2020): May [...] QID Assessment & Plan (09/15/2020 10:36 AM INSULATION MANAGER): - Hgb A1c 8.5% 05/2020, 5.5% [...] as current doses - follow-up with his grid inspector at [facility] for long-term therapy decisions. Consider [...] plavix Assessment & Plan (09/14/2020 11:01 AM INSULATION MANAGER): - s/p CABG [address] [...] Isordil Assessment & Plan (09/17/2020 6:52 AM INSULATION MANAGER): - VS Q4 hrs - Continue home Lasix, hydralazine, metoprolol, Isordil Assessment & Plan (06/28/2020 10:41 AM CDT): - Elevated blood pressure - continue hydralazine 100 mg tid, isosorbide 40 mg tid - Coreg held with recent [employer]CTOR OF NAPRAPATH[employer], likely resume low dose tomorrow Assessment & Plan (06/27/2020 1:27 PM CDT): - Elevated blood pressure - continue hydralazine 100 mg tid, isosorbide 40 mg tid - Coreg held with recent [employer] OF [employer] [employer], likely resume tomorrow Assessment & Plan (06/26/2020 12:05 PM CDT): -Elevated blood pressure - continue hydralazine 100 mg tid, isosorbide 40 mg tid -Coreg held while on [facility] [employer] Assessment & Plan (06/25/2020 2:31 PM CDT): -Elevated blood pressure - continue hydralazine 100 mg tid, isosorbide 40 mg tid -Coreg held while on [facility] [employer] Assessment & Plan (06/24/2020 3:58 PM CDT): -Elevated blood pressure - continue hydralazine 100 mg tid, isosorbide 40 mg tid -Coreg held while on [employer] [employer] Assessment & Plan (06/23/2020 10:00 AM CDT): [...] week 03/12/2023 How often do you attend [facility] or muslim services? Never 03/12/2023 Do you belong to any clubs o r organizations such as mormon groups, unions, fraternal or athletic groups, or [...] place to sleep or slept in a longterm (including now)? No 03/12/2023 Personal Safety Answer Date Recorded Have you ever been in or are you currently in a harmful physical or emotional relationship or is someone making you feel afraid or unsafe? Denies 04/16/2023 Sex and Gender Information Value Date Recorded Sex Assigned at Not on file Legal Sex Male 4:17 AM INSULATION MANAGER Gender Identity Not on file Sexual [...] MD LAB BLOOD ORDERABLES Final Result [facility] [address] [facility] Department [place] [address] * Hemoglobin A1c (02/15/2023 5:16 AM CDT) Pathologist [facility] Hgb A1C 5.5 4.0 - 5.6 % [facility] Estimated Average Glucose 111 mg/dL LE[facility] [...] MD LAB BLOOD ORDERABLES Final Result [facility] Department [place] [address] * (ABNORMAL) Lipid panel (02/15/2023 5:16 AM CDT) Cholesterol 75 30 - 199 mg/dL [facility] Comment: Interpretive Data Ages < or [...] 2018. Triglycerides 81 <=149 mg/dL [facility] Comment: Interpretive Data Ages < or [...] on 2018. HDL 26(L) >=40 mg/dL [facility] Comment: Interpretive Data Ages < or [...] 2018. LDL, calculated 33 <=129 mg/dL [facility] Comment: Interpretive Data Ages < or [...] on 2018. Chol/HDL ratio 3 [facility] Blood 02/15/2023 5:16 AM CDT 02/15/2023 5:57 AM CDT us Marcella Arias MD LAB BLOOD ORDERABLES Final Result [facility] Department [place] [address] * COLONOSCOPY (11/03/2021 12:44 PM INSULATION MANAGER) Anatomical Region Laterality Modality Other Narrative Procedure Note Brayden Lerma MD - 11/03/2021 12:44 PM CST [facility] Endoscopy Lab Patient Name: Kobi Salter Procedure Date: 11/03/2021 12:44 PM Date of : 1965 Admit Type: Outpatient Age: 56 Gender: Male Note Status: Finalized Attending MD: Brayden Lerma M.D. Procedure Date: 11/03/2021 Procedure: Colonoscopy Indications: Chronic diarrhea Patient Profile: This is a 56 year old male. Diarrhea. Providers: Brayden Lerma M.D., Teresa Ross, DIRECTOR OF CLINICAL EDUCATION (Anesthesia Staff), Gini Izquierdo RN, Jose A Vuong,Form Designer Referring MD: Jewels Lamas M.D. Medicines: Monitored [...] bowel preparation was evaluated using the BBPS (Galax Bowel Preparation Scale)with scores of: Right Colon [...] * Hepatitis C antibody (09/20/2020 8:35 PM INSULATION MANAGER) Hep C Ab Nonreactive Nonreactive [facility] Comment:Antibodies to HCV no t detected. Does NOT exclude the possibility of recent exposure to HCV. Blood specimen (specimen) 09/20/2020 8:35 PM INSULATION MANAGER 09/20/2020 10:17 PM INSULATION MANAGER us Jasson Teague NP LAB MICROBIOLOGY - GENE RAL ORDERABLES Final Result [facility] Department [place] [address] from Last 3 Months or Most Recently Relevant to Health Maintenance
--- OUTSIDE RECORDS SUMMARY | 2025-06-26 07:28 | XMS_ITS | Encounter Summary ---
Author Organization [facility] Address [address] [place] [address] Phone Care Team Providers Care Nursing Aide Name Role Phone Avery Tay MD Primary Care Provider [phone] No, Physician Primary Care Provider [phone] Avery Tay MD Primary Care Provider [phone] Mariposa Smalls RN Unavailable Warner Sidhu MD PhD Unavailable + Jewels Lamas MD Primary Care Provider [phone] Mariposa Smalls RN Unavailable Frandy Colunga MD Unavailable [phone] Alcon Quintanilla DPM Unavailable [phone] No, Physician Primary Care Provider [phone] Theodore Solis MD Unavailable [phone] Leah MARINO MD, Raul Woodard Unavailable + [phone] Encounter Details Date Type Department Care Team (Latest Contact Info) Description 09/06/2017 Orders Only [facility] CONVERSION Scanning, Provider Social History Tobacco Use Types Packs/Day Years Used Date Smoking Tobacco: Never Assessed Sex and Gender Information Value Date Recorded Sex Assigned at Not on file Legal Sex Male 4:17 AM SENIOR MORTGAGE LOAN PROCESSOR Gender Identity Not on file Sexual Orientation Not on file documented as of this encounter Plan of Treatment Not on file documented as of this encounter Procedures Procedure Name Priority Date/Time Associated Diagnosis Comments VASCULAR LABORATORY REPORT 09/12/2017 3:49 PM SENIOR MORTGAGE LOAN PROCESSOR VASCULAR LABORATORY REPORT 09/06/2017 2:11 PM SENIOR MORTGAGE LOAN PROCESSOR VASCULAR LABORATORY REPORT 09/06/2017 1:55 PM SENIOR MORTGAGE LOAN PROCESSOR documented in this encounter Results * VASCULAR LABORATORY REPORT (09/12/2017 3:49 PM SENIOR MORTGAGE LOAN PROCESSOR) Anatomical Region Laterality Modality Ultrasound us Provider Scanning CV VASCULAR PROCEDURES Final R esult * VASCULAR LABORATORY REPORT (09/06/2017 2:11 PM SENIOR MORTGAGE LOAN PROCESSOR) Anatomical Region Laterality Modality Ultrasound us Provider Scanning CV VASCULAR PROCEDURES Final R esult * VASCULAR LABORATORY REPORT (09/06/2017 1:55 PM SENIOR MORTGAGE LOAN PROCESSOR) Anatomical Region Laterality Modality Ultrasound us Provider [...] was positive for COVID19 on 08/07/20 at [facility]; lab in Care Everywhere. There are no present respiratory concerns for this admission. Patient presents for wound assessment and management. Pt meets Recovered criteria. Becka Nation RN 09/13/2020 09/13/2020 09/13/2020 11:00 PM SENIOR MORTGAGE LOAN PROCESSOR COVID: Recovered Comment:09/13/2020 IP Review - See note below regarding prior positive on 08/07/20 at [facility]. Spoke to ED team and there are no respiratory concerns at this time. Becka Nation RN 09/13/2020 09/13/2020 04/05/2021 3:05 AM C DT MRSA 11/14/2020 11/18/2020 10/31/2021 4:00 AM SENIOR MORTGAGE LOAN PROCESSOR COVID: Suspected 02/13/2021 02/13/2021 02/13/2021 10:13 PM CDT COVID: Suspected 04/22/2021 04/22/2021 04/22/2021 7:17 AM CDT VRE 05/19/2021 05/19/2021 11/15/2021 3:05 AM CDT COVID: Suspected 12/06/2022 12/06/2022 12/06/2022 2:04 PM CDT COVID: Suspected 03/10/2023 03/10/2023 03/10/2023 10:14 AM CDT MRSA 03/11/2023 04/16/2023 10/13/2023 3:05 AM SENIOR MORTGAGE LOAN PROCESSOR MDR gram neg/ESBL 04/16/2023 04/16/2023 C. difficile 04/26/2023 04/26/2023 documented as of this encounter Care Teams Nursing Aide Relationship Specialty Start Date End Date Avery Tay MD PCP - General 05/31/17 11/15/19 No, Physician PCP - General 11/16/19 02/23/20 Avery Tay MD PCP - General 02/24/20 09/05/20 Jewels Lamas MD [address] [address] PCP - General Family Practice 09/06/20 02/13/23 No, Physician PCP - General 02/14/23 Mariposa Smalls, RN [address] [address] Motion Graphics Designer Cardiology 06/30/20 Warner Sidhu MD PhD [address] [address] Auto Cleaner Cardiology 06/30/20 03/29/21 Mariposa Smalls, RN [address] [address] Motion Graphics Designer Cardiology 06/30/20 Frandy Colunga MD [address] [address] Surgeon Vascular Surgery 02/28/21 Alcon Quintanilla DPM [address] [address] Surgeon Podiatry 02/28/21 Theodore Solis MD [address] [place] [address] Consulting Physician Internal Medicine 03/16/23 Raul Lynn IV, MD [address] [place] [address] Consulting Physician General Surgery 04/30/23 documented as of this encounter
--- OUTSIDE RECORDS SUMMARY | 2025-06-26 07:28 | XMS_ITS | Encounter Summary ---
Author Organization [facility] Address [address] [place] [address] Care Team Providers Care Research Administrator Name Role Phone Mariposa Smalls RN Unavailable Warner Sidhu MD PhD Unavailable + Jewels Lamas MD Primary Care Provider [phone] Mariposa Smalls RN Unavailable Frandy Colunga MD Unavailable [phone] Alcon Quintanilla DPM Unavailable [phone] No, Physician Primary Care Provider [phone] Theodore Solis MD Unavailable [phone] Leah MARINO MD, Lyman Lansing Unavailable [phone] Encounter Details Date Type Department Care Team (Late st Contact Info) Description 12/08/2020 Documentation [facility] [address] [place] [address] Elena Monzon LCSW Social History Tobacco Use [...] declined 06/20/2020 How often do you attend orthodox or episcopal serv ices? Patient declined 06/20/2020 Do you belong to any clubs o r organizations such as orthodox groups, unions, fraternal or athletic groups, [...] on file Legal Sex Male 4:17 AM BANQUET KITCHEN SUPERVISOR Gender Identity Not on file Sexual [...] below regarding prior positive on 08/07/20 at [facility]. Spoke to ED team and there are no respiratory concerns at this time. Becka Nation RN 09/13/2020 09/13/2020 04/05/2021 3:05 AM C DT MRSA 11/14/2020 11/18/2020 10/31/2021 4:00 AM BANQUET KITCHEN SUPERVISOR COVID: Suspected 02/13/2021 02/13/2021 02/13/2021 10:13 PM CDT COVID: Suspected 04/22/2021 04/22/2021 04/22/2021 7:17 AM CDT VRE 05/19/2021 05/19/2021 11/15/2021 3:05 AM CDT COVID: Suspected 12/06/2022 12/06/2022 12/06/2022 2:04 PM CDT COVID: Suspected 03/10/2023 03/10/2023 03/10/2023 10:14 AM CDT MRSA 03/11/2023 04/16/2023 10/13/2023 3:05 AM BANQUET KITCHEN SUPERVISOR MDR gram neg/ESBL 04/16/2023 04/16/2023 C. difficile 04/26/2023 04/26/2023 documented as of this encounter Care Teams Research Administrator Relationship Specialty Start Date End Date Jewels Lamas MD [address] [address] PCP - General Family Practice 09/06/20 02/13/23 No, Physician PCP - General 02/14/23 Mariposa Smalls RN [address] [address] Fish Hatchery Assistant Cardiology 06/30/20 Warner Sidhu MD PhD [address] [address] Mica Layer Cardiology 06/30/20 03/29/21 Mariposa Smalls, RN [address] [address] Fish Hatchery Assistant Cardiology 06/30/20 Frandy Colunga MD [address] [facility] [address] [place] [address] Surgeon Vascular Surgery 02/28/21 Alcon Quintanilla DPM [address] [facility] [address] [place] [address] Surgeon Podiatry 02/28/21 Theodore Solis MD [address] [place] [address] Consulting Physician Internal Medicine 03/16/23 Raul Lynn IV, MD [address] [place] [address] Consulting Physician General Surgery 04/30/23 documented as of this encounter
[2025-06-26 07:57] LABS: NT Pro B Type Natriuretic Pept > 30000 pg/mL (19.9-100)
[2025-06-26] MEDS: CEFEPIME 2 GM in SODIUM CHLORIDE 0.9% IV 50 ML 100 ML IVPB (09:04)
--- NOTE | 2025-06-26 09:42 | PC.NURSE ---
pt is on dialysis and doesn't produce urine, EDP aware of this. no urine obtained at this time
--- NOTE | 2025-06-26 10:17 | PC.NURSE ---
EDP Dr. De Los Santos wants the Levophed started peripherally until placement of central line is confirmed
[2025-06-26 10:25] LABS: MRSA (PCR) NOT DETECTED (NOT DETECTE)
--- NOTE | 2025-06-26 10:27 | PC.NURSE ---
EDP Dr. De Los Santos gave verbal OK to use central line after examining the chest xray
[2025-06-26] MEDS: NOREPINEPHRINE 8 MG/D5W 250 ML 8 MG/250 ML BAG 9.38 MG IV CONT (10:38)
--- NOTE | 2025-06-26 10:44 | ED.AMS ---
HPI - Altered Mental Status General Chief Complaint: Altered Mental Status Stated Complaint: fever, altered Time Seen by Provider: 06/26/25 06:59 History of Present Illness HPI narrative: Patient was here yesterday for decubitus ulcers and not feeling well; today was feeling worse with a fever, so came back. Also seems more tired and confused Related Data Home Medications ?Medication ?Instructions ?Recorded ?Confirmed ?Last Taken ?Type ferrous sulfate 325 mg (65 mg 325 mg PO DAILY 06/01/20 03/10/25 03/02/24 History iron) tablet multivitamin 1 tablet PO DAILY 06/01/20 03/10/25 03/02/24 History nitroglycerin 0.4 mg sublingual 0.4 mg sublingual Q5-15M PRN Chest 06/01/20 03/10/25 Unknown History tablet Pain omega-3 fatty acids-fish oil 360 1 cap PO DAILY 06/01/20 03/10/25 03/02/24 History mg-1,200 mg capsule atorvastatin 40 mg tablet (Lipitor) 40 mg PO HS 12/23/20 03/10/25 03/02/24 History folic acid 1 mg tablet 1 mg PO DAILY 12/23/20 03/10/25 03/02/24 History gabapentin 100 mg tablet 200 mg PO HS 12/23/20 03/10/25 03/02/24 History sevelamer carbonate 800 mg tablet 800 mg PO DAILY@1700 12/23/20 03/10/25 03/02/24 History tamsulosin 0.4 mg capsule (Flomax) 0.4 mg PO DAILY 12/23/20 03/10/25 03/02/24 18:00 History linagliptin 5 mg tablet (Tradjenta) 5 mg PO DAILY 01/13/23 03/10/25 1 Day Ago History ~01/12/23 mirtazapine 15 mg tablet 15 mg PO HS 01/13/23 03/10/25 03/02/24 History sertraline 50 mg tablet 25 mg PO HS 01/13/23 03/10/25 03/02/24 History meclizine 25 mg tablet 25 mg PO Q8H PRN Dizziness 09/17/23 03/10/25 Unknown History midodrine 10 mg tablet 10 mg PO BID 09/17/23 03/10/25 03/02/24 14:00 History acetaminophen 325 mg tablet 650 mg PO Q6H PRN Pain (Scale 10/29/23 03/10/25 Unknown History (Tylenol) Score 1-3) naloxone 4 mg/actuation nasal spray 1 spray intranasal Q3M PRN Opioid 10/29/23 03/10/25 Unknown History Overdose sennosides 8.6 mg-docusate sodium 1 tablet PO BID PRN Constipation 10/29/23 03/10/25 Unknown History 50 mg tablet (Senna Plus) guaifenesin 100 mg/5 mL oral syrup 600 mg PO Q8H PRN Cough 03/03/24 03/10/25 Unknown History lanolin alcohols-mineral 1 applic topical QPM 03/03/24 03/10/25 03/02/24 History oil-w.petrolatum-ceresin topical cream (Eucerin topical cream) ascorbic acid (vitamin C) 500 mg 500 mg PO BID 03/10/25 03/10/25 Unknown History tablet famotidine 20 mg tablet 20 mg PO BID 03/10/25 03/10/25 Unknown History mirtazapine 7.5 mg tablet 7.5 mg PO HS 03/10/25 03/10/25 Unknown History nut.tx.imp.renal fxn,lac-reduc 1 ea PO HS 03/10/25 03/10/25 Unknown History 0.08 gram-1.8 kcal/mL oral liquid polyethylene glycol 3350 17 gram 17 g PO DAILY PRN constipation 03/10/25 03/10/25 Unknown History oral powder packet tizanidine 2 mg tablet 2 mg PO BID 03/10/25 03/10/25 Unknown History vitamin B complex-vitamin C-folic 1 tablet PO DAILY 03/10/25 03/10/25 Unknown History acid 0.8 mg tablet (Nephro-[place]) zinc sulfate 220 mg capsule 220 mg PO DAILY 03/10/25 03/10/25 Unknown History Allergies Allergy/AdvReac Type Severity Reaction Status Date / Time Penicillins Allergy Unknown Unknown Verified 06/26/25 11:01 bee venom protein (honey bee) Allergy Swelling Verified 06/26/25 11:01 Review of Systems Review of Systems: All systems reviewed & are unremarkable except as noted in HPI and below PMFSH Past Medical History Medical History Iron deficiency anemia MRSA infection Clostridium difficile diarrhea Paroxysmal atrial fibrillation Transient atrial fibrillation following bypass surgery. Coronary artery disease History of multiple stents and 4 vessel bypass. Type 2 diabetes mellitus Hyperlipidemia End-stage renal disease on hemodialysis Combined systolic and diastolic congestive heart failure Anxiety and depression Obstructive sleep apnea does not use a CPAP Anemia of chronic disease Diabetic nephropathy Diabetic peripheral neuropathy Arthritis Surgical History Surgical History History of right below knee amputation History of five vessel coronary artery bypass (2018) [facility] History of cataract extraction with lens replacement History of coronary artery stent placement History of cardiac catheterization History of left below knee amputation History of amputation of toe left 5th toe 2013 small toe on the right amputated Family History Family History Sibling Patient's sister is Diabetes mellitus Sister Acute myocardial infarction Three brothers and 2 sisters History of blood clots Sister Abdominal aortic aneurysm Sister Dementia Brother COPD (chronic obstructive pulmonary disease) Brother Father Acute myocardial infarction, Onset Age: 65 Mother History of blood clots Hypertension, Onset Age: 80 Social History Social History Social History: Surrogate medical decision maker: Melodie Roca (niece) or Alejandra Murray (sister). Code status: DNR/DNI Smoking packs per day: 0.25 Smoking cigarettes per day: 5.0 Years smoked: 30 Smoking pack-years: 7.50 Smoking status: Former smoker Alcohol intake: unknown Drinks per week: 2 Alcohol use details: Social alcohol use. Substance use: unknown Substance use type: marijuana Last use: 2018 Do You Feel Safe in your Home?: Yes Lack of Transportation: No Lack of Food: Never True Current Housing: I Have Housing Concerned About Future Housing: No Difficulty Paying Gas/Electric Bills: No Difficulty Paying for Meds: No Currently Unemployed: No Education: Don't Know Difficulty w/ Childcare or Family Care: No Additional living arrangements comments: [facility]. Additional occupation/education comments: Disabled. Spiritual care concerns: No Exam Narrative: EXAMINATION OF ORGAN SYSTEMS/BODY AREAS: Constitutional: Vital signs per nursing GENERAL: Appears quite tired, occasionally nodding off HEAD: Normal with no signs of head trauma. EYES: EOMI, conjunctiva normal ENT: Hearing grossly intact LUNGS: Nonlabored breathing. HEART: [Regular rate and rhythm] ABD: [Soft], [nontender to palpation] EXT: Bilateral lower extremity amputations SKIN: Large, dark/black looking decubitus ulcer to sacrum NEURO: [Sleepy. Moving both upper extremities spontaneously.] PSYCH: Normal affect Course Vital Signs Vital signs: Vital Signs Temperature 102.3 F H 06/26/25 05:51 Pulse Rate 76 06/26/25 05:51 Respiratory Rate 21 H 06/26/25 05:51 Blood Pressure 106/50 L 06/26/25 05:51 Pulse Oximetry 91 06/26/25 05:51 Oxygen Delivery Nasal Cannula 06/26/25 05:51 Oxygen Flow Rate 1 06/26/25 05:51 Temperature 95.0 F L 06/26/25 14:15 Pulse Rate 59 L 06/26/25 14:15 Respiratory Rate 20 06/26/25 14:15 Blood Pressure 120/51 L 06/26/25 14:15 Pulse Oximetry 97 06/26/25 14:15 Oxygen Delivery Nasal Cannula 06/26/25 11:29 Oxygen Flow Rate 2 06/26/25 11:29 Procedures Central Line Placement Left IJ: Central Line Date: 06/26/25 Central Line Time: 09:45 Discussed w/ the patient/family/POA,the placement of a central venous catheter, including its clinical necessity/indication & associated potential risks, benifits and alternatives.: Yes The patient/family/POA understand(s) and acknowledge(s) the need to proceed with central venous catheter insertion as an important element of the patient's clinical management.: Yes Time Out Performed: Yes Patient Placed on Monitor/Pulse Ox: Yes Max. Sterile Barrier Technique: Caps, large sterile sheet and hand hygiene Central Line Prep: 2% chlorhexidine scrub and sterile drapes applied Technique: US-Guided Local Anesthetic: lidocaine 1% Amount of anesthesia used (mL): 3 Ultrasound Used for Placement: Yes Central Line Lumen Inserted: triple Post Procedure: sutured in place, good blood return, all ports aspirated, flushed, capped and sterile dressing applied Post Procedure X-Ray: tip of catheter in good position and no pneumothorax seen Patient Tolerated Procedure: well and no complications MDM - Altered Mental Status MDM Narrative Medical decision making narrative: Patient presenting here with worsening fever, confusion had been seen here yesterday for decubitus ulcer but overall symptoms have been getting worse. On exam he does appear quite tired, he is decubitus ulcer is dark, tender, quite foul smelling. I do suspect this is likely the source of he does not make urine, chest x-ray showing fluid overload but no obvious signs of pneumonia. General surgery consulted and are at bedside to see patient. Septic protocol initiated, antibiotics started, since he already appears to be in overload I am unfortunately unable to do much fluid resuscitation, and hit as his blood pressure dropped, do feel was necessary to start pressors, place central line, admit to ICU. Discussed with patient, family at bedside, who would like to proceed with all interventions at this time. Discussed with our broke beater operator who recommended transfer to [place] for possible CRRT. Discussed with [place] broke beater operator, who did not accept the patient, since he they felt that we should be able to dialyze patient at our facility if he only had a small pressor requirement. After several hours here, patient has not required additional pressors, blood pressure has actually stabilized some. Given this, discussed him with our broke beater operator, buggy runner, for admission here. Patient family member updated on plan. Lab Data 06/26/25 06:22 06/26/25 06:22 Labs: Lab Results 06/26/25 06/26/25 Range/Units 06:22 09:08 WBC 13.3 H (4.5-10.0) K/mm3 RBC 3.06 L (4.6-6.20) M/mm3 Hgb 9.4 L (14.0-18.0) g/dL Hct 30.7 L (42.0-52.0) % MCV 100.3 H (80-100) fl MCH 30.7 (26-34) pg MCHC 30.6 L (32-36) g/dl RDW 18.1 H (11.5-14.5) % Plt Count 149 L (150-375) k/mm3 MPV 11.1 H (7.4-10.4) fl Immature Gran % (Auto) 0.5 (0-0.5) % Neut % (Auto) 93.2 H (45.5-73.1) % Lymph % (Auto) 1.5 L (18.3-44.2) % [place] % (Auto) 4.4 (2.6-8.5) % Eos % (Auto) 0.2 (0-4.4) % Baso % (Auto) 0.2 (0.2-1.2) % Lymph # (Auto) 0.20 L (0.9-3.2) K/mm3 [place] # (Auto) 0.6 (0.1-0.6) K/mm3 Eos # (Auto) 0.0 (0-0.3) K/mm3 Baso # (Auto) 0.0 (0.0-0.1) K/mm3 Abs Immat Gran (auto) 0.06 H (0.00-0.031) K/mm3 Absolute Neuts (auto) 12.4 H (1.3-6.7) K/mm3 Absolute Nucleated RBC 0.000 (0.0-0.012) K/mm3 Nucleated RBC % 0.0 (0.0-0.2) % PT 20.8 H (11.1-14.7) Seconds INR 1.8 APTT 41.6 H (22.3-36.8) Seconds Sodium 136 L (137-145) mmol/L Potassium 3.4 (3.4-5.0) mmol/L Chloride 98 (98-107) mmol/L Carbon Dioxide 32 H (22-30) mmol/L Anion Gap 6 (4-12) mmol/L BUN 23 H (9-20) mg/dL Creatinine 2.76 H (0.7-1.3) mg/dL Estim Creat Clear Calc Not Reportable Estimated GFR 23 L (59 - ) Glucose 137 H (65-110) mg/dL Lactic Acid 2.0 (0.7-2.0) mmol/L Calcium 7.4 L (8.4-10.2) mg/dL Total Bilirubin 0.9 (0.2-1.3) mg/dL AST 28 (17-59) U/L ALT 18 (6-50) U/L Alkaline Phosphatase 198 H (38-126) U/L Total Creatine Kinase 94 (55-170) U/L NT-Pro-B Natriuret Pep > 50792 H (19.9-100) pg/mL Total Protein 6.4 (6.3-8.2) g/dL Albumin 2.5 L (3.5-5.1) g/dL Nasal MRSA (PCR) Not detected (NOT DETECTE) Critical Care Time Critical Care Time Critical Care Time: Yes Total Critical Care Time: 50 Discharge Plan Discharge Clinical Impression: Septic shock, ESRD (end stage renal disease) on dialysis, Pulmonary edema, Decubitus ulcer Patient Disposition: Still a Patient Condition: Stable
[2025-06-26] MEDS: VANCOMYCIN HCL 1,000 MG in SODIUM CHLORIDE 0.9% IV 250 ML 250 MG IVPB (11:55)
--- NOTE | 2025-06-26 12:43 | PC.NURSE ---
pt unable to swallow at this time. pt unable to take his home med of Midodrine. 2 RN waste
--- NOTE | 2025-06-26 14:06 | WPDCNINT ---
Assessment and Plan Assessment and plan (1) Shock: Code(s): R57.9 - Shock, unspecified Status: Acute Assessment and Plan: Patient presented with altered mental status, hypotension, shortness of breath -shock likely septic versus cardiogenic given history of biventricular dysfunction -lactic acid was 2.0, extremities were warm -etiology: Likely decubitus ulcer, pneumonia -patient has been febrile with leukocytosis -fits septic shock more so than other kinds of shock -significantly elevated pro BNP, no IV fluids were infused -chest x-ray showed bilateral infiltrates/pulmonary edema with possible perihilar and airspace opacity/pneumonia -patient started on cefepime, vancomycin, doxycycline and Flagyl for anaerobe coverage -06/26: Blood cultures obtained (2) Pulmonary edema: Code(s): J81.1 - Chronic pulmonary edema Status: Acute Assessment and Plan: Pulmonary edema likely related to volume overload, unknown when he got his last dialysis -discussed with Dr. Almodovar, regarding patient will require dialysis to which she is agreeable. (3) Pneumonia: Qualifiers: Laterality: left Lung location: unspecified part of lung Pneumonia type: due to unspecified organism Qualified Code(s): J18.9 - Pneumonia, unspecified organism Code(s): J18.9 - Pneumonia, unspecified organism Status: Acute Assessment and Plan: Antibiotics as above, will deescalate if blood cultures are negative -will check MRSA screen (4) End-stage renal disease on hemodialysis: Code(s): N18.6 - End stage renal disease; Z99.2 - Dependence on renal dialysis Status: Acute Assessment and Plan: End-stage renal disease on hemodialysis, unknown what days he gets his dialysis or we he gets his dialysis -nephrology has been consulted -agree with dialyzing the patient today -nephrology aware that he is on norepinephrine 5 mcg/min, with adequate blood pressures. On 2 L nasal cannula (5) Type 2 diabetes mellitus: Code(s): E11.9 - Type 2 diabetes mellitus without complications Status: Acute Assessment and Plan: Will add sliding scale insulin and Accu-Chek (6) Decubitus ulcer: Code(s): L89.90 - Pressure ulcer of unspecified site, unspecified stage Status: Acute Assessment and Plan: Surgery following the patient, awaiting their recommendations Plan DVT prophylaxis: Heparin subQ Stress ulcer prophylaxis: Protonix Nutrition: NPO for now Code Status: Full code Critical Care Time Spent: 48 minutes Due to a high probability of clinically significant, life threatening deterioration, the patient required my highest level of preparedness to intervene emergently and I personally spent this critical care time directly and personally managing the patient. This critical care time included obtaining a history; examining the patient; pulse oximetry; ordering and review of studies; arranging urgent treatment with development of a management plan; evaluation of patient's response to treatment; frequent reassessment; and discussions with other providers. It was exclusive of separately billable procedures and treating other patients and teaching time. Please see Assessment and Plan section and the rest of the note for further information on patient assessment and treatment This dictation may have been done utilizing a voice recognition system. Attempts have been made to correct errors. However, there may be uncorrected grammatical, spelling, and recognitions errors present. Outreach Manager Consult Note Consult date: 06/26/25 Reason for consult: Shock, pulmonary edema, end-stage renal disease on hemodialysis altered mental status for fevers HPI: Kobi Salter is a 60 year old male past medical history of end-stage renal disease on hemodialysis, chronic anemia, combined systolic and diastolic heart failure, coronary artery disease status post four-vessel bypass, hypertension, hyperlipidemia, diabetes type 2, bilateral lower extremity BKA, decubitus ulcer, diabetic neuropathy, obstructive sleep apnea, anxiety and depression, hyperlipidemia, paroxysmal AFib presented the ED on 06/26/2025 with complains of shortness of breath, fevers and altered mental status. In the ED patient was found to be hypotensive and was febrile to 102.3? F. chest x-ray showed pulmonary edema, patient was not given any IV fluids, stay central line was inserted and started on Levophed. Patient is on Levophed at 5 mcg/min. Was initially being transferred to [place] for CRRT but they refuse to accept the patient. ER physician call me back, I have and evaluated the patient in the ER significantly coarse breath sounds with rales, discussed with Nephrology for possible dialysis today with at least fluid removal to which she is agreeable. Pertinent labs WBC 13.3, hemoglobin 9.4, platelets 149. Sodium 136, potassium 3.4, chloride 98, CO2 32, BUN 23, creatinine 2.76, blood sugars 137. Lactic acid is 2.0, LFTs within normal limits, proBNP > 30,000. 06/26 CT scan of the abdomen and pelvis showed decubitus wounds, no evidence of osteomyelitis, no evidence of associated abscess, no acute abnormality with an abdominal pelvis 06/26 chest x-ray showed no pneumothorax after central line placement, right perihilar airspace disease suspicious for pneumonia, pulmonary edema, left IJ central line Patient was given 1 dose of cefepime and vancomycin. Will transfer patient in the ICU Patient seen and examined in the ER, is lethargic, opens eyes denies follows simple commands, nods to questions. Denies any pain, nausea, vomiting. Complains of shortness of breath. Is on 2 L nasal cannula I patient will remains on Levophed at 5 mcg/min. Patient normally is anuric given his end-stage renal disease. Review of Systems Review of Systems: All systems reviewed & are unremarkable except as noted in HPI and below PMFSH Past Medical History Medical History Iron deficiency anemia MRSA infection Clostridium difficile diarrhea Paroxysmal atrial fibrillation Transient atrial fibrillation following bypass surgery. Coronary artery disease History of multiple stents and 4 vessel bypass. Type 2 diabetes mellitus Hyperlipidemia End-stage renal disease on hemodialysis Combined systolic and diastolic congestive heart failure Anxiety and depression Obstructive sleep apnea does not use a CPAP Anemia of chronic disease Diabetic nephropathy Diabetic peripheral neuropathy Arthritis Surgical History Surgical History History of right below knee amputation History of five vessel coronary artery bypass (2018) [facility] History of cataract extraction with lens replacement History of coronary artery stent placement History of cardiac catheterization History of left below knee amputation History of amputation of toe left 5th toe 2013 small toe on the right amputated Family History Family History Sibling Patient's sister is Diabetes mellitus Sister Acute myocardial infarction Three brothers and 2 sisters History of blood clots Sister Abdominal aortic aneurysm Sister Dementia Brother COPD (chronic obstructive pulmonary disease) Brother Father Acute myocardial infarction, Onset Age: 65 Mother History of blood clots Hypertension, Onset Age: 80 Social History Social History Social History: Surrogate medical decision maker: Melodie Roca (niece) or Alejandra Murray (sister). Code status: DNR/DNI Smoking packs per day: 0.25 Smoking cigarettes per day: 5.0 Years smoked: 30 Smoking pack-years: 7.50 Smoking status: Former smoker Alcohol intake: unknown Drinks per week: 2 Alcohol use details: Social alcohol use. Substance use: unknown Substance use type: marijuana Last use: 2019 Do You Feel Safe in your Home?: Yes Lack of Transportation: No Lack of Food: Never True Current Housing: I Have Housing Concerned About Future Housing: No Difficulty Paying Gas/Electric Bills: No Difficulty Paying for Meds: No Currently Unemployed: No Education: Don't Know Difficulty w/ Childcare or Family Care: No Additional living arrangements comments: [facility]. Additional occupation/education comments: Disabled. Spiritual care concerns: No Meds Home Medications and Allergies Home Medications ?Medication ?Instructions ?Recorded ?Confirmed ?Type ferrous sulfate 325 mg (65 mg 325 mg PO DAILY 06/01/20 03/10/25 History iron) tablet multivitamin 1 tablet PO DAILY 06/01/20 03/10/25 History nitroglycerin 0.4 mg sublingual 0.4 mg sublingual Q5-15M PRN Chest 06/01/20 03/10/25 History tablet Pain omega-3 fatty acids-fish oil 360 1 cap PO DAILY 06/01/20 03/10/25 History mg-1,200 mg capsule atorvastatin 40 mg tablet (Lipitor) 40 mg PO HS 12/23/20 03/10/25 History folic acid 1 mg tablet 1 mg PO DAILY 12/23/20 03/10/25 History gabapentin 100 mg tablet 200 mg PO HS 12/23/20 03/10/25 History sevelamer carbonate 800 mg tablet 800 mg PO DAILY@1700 12/23/20 03/10/25 History tamsulosin 0.4 mg capsule (Flomax) 0.4 mg PO DAILY 12/23/20 03/10/25 History linagliptin 5 mg tablet (Tradjenta) 5 mg PO DAILY 01/13/23 03/10/25 History mirtazapine 15 mg tablet 15 mg PO HS 01/13/23 03/10/25 History sertraline 50 mg tablet 25 mg PO HS 01/13/23 03/10/25 History meclizine 25 mg tablet 25 mg PO Q8H PRN Dizziness 09/17/23 03/10/25 History midodrine 10 mg tablet 10 mg PO BID 09/17/23 03/10/25 History acetaminophen 325 mg tablet 650 mg PO Q6H PRN Pain (Scale 10/29/23 03/10/25 History (Tylenol) Score 1-3) naloxone 4 mg/actuation nasal spray 1 spray intranasal Q3M PRN Opioid 10/29/23 03/10/25 History Overdose sennosides 8.6 mg-docusate sodium 1 tablet PO BID PRN Constipation 10/29/23 03/10/25 History 50 mg tablet (Senna Plus) guaifenesin 100 mg/5 mL oral syrup 600 mg PO Q8H PRN Cough 03/03/24 03/10/25 History lanolin alcohols-mineral 1 applic topical QPM 03/03/24 03/10/25 History oil-w.petrolatum-ceresin topical cream (Eucerin topical cream) diphenoxylate-atropine 2.5 2 tablet PO TID PRN Diarrhea #15 03/06/24 03/10/25 Rx mg-0.025 mg tablet (Lomotil) tabs tramadol 50 mg tablet 50 mg PO Q4H PRN Pain (Scale Score 03/06/24 03/10/25 Rx 4-6) #15 tabs ascorbic acid (vitamin C) 500 mg 500 mg PO BID 03/10/25 03/10/25 History tablet famotidine 20 mg tablet 20 mg PO BID 03/10/25 03/10/25 History mirtazapine 7.5 mg tablet 7.5 mg PO HS 03/10/25 03/10/25 History nut.tx.imp.renal fxn,lac-reduc 1 ea PO HS 03/10/25 03/10/25 History 0.08 gram-1.8 kcal/mL oral liquid polyethylene glycol 3350 17 gram 17 g PO DAILY PRN constipation 03/10/25 03/10/25 History oral powder packet tizanidine 2 mg tablet 2 mg PO BID 03/10/25 03/10/25 History vitamin B complex-vitamin C-folic 1 tablet PO DAILY 03/10/25 03/10/25 History acid 0.8 mg tablet (Nephro-[place]) zinc sulfate 220 mg capsule 220 mg PO DAILY 03/10/25 03/10/25 History aspirin 325 mg tablet,delayed 325 mg PO QAM #30 tabs 03/17/25 Rx release hydrocodone 5 mg-acetaminophen 325 1 tablet PO Q4H #20 tabs 04/25/25 Rx mg tablet Allergies Allergy/AdvReac Type Severity Reaction Status Date / Time Penicillins Allergy Unknown Unknown Verified 06/26/25 11:01 bee venom protein (honey bee) Allergy Swelling Verified 06/26/25 11:01 Vital Signs Vital Signs - 24 hr 06/26/25 05:51 06/26/25 06:20 06/26/25 06:44 Temperature 102.3 F H Pulse Rate 76 78 79 Respiratory Rate 21 H 16 Blood Pressure 106/50 L 129/42 L Pulse Oximetry 91 92 Oxygen Delivery Nasal Cannula Oxygen Flow Rate 1 06/26/25 08:08 06/26/25 09:32 06/26/25 09:35 Temperature Pulse Rate 81 73 73 Respiratory Rate 16 14 11 L Blood Pressure 92/42 L 90/43 L Pulse Oximetry 98 98 98 Oxygen Delivery Oxygen Flow Rate 06/26/25 09:36 06/26/25 09:45 06/26/25 10:00 Temperature Pulse Rate 74 73 72 Respiratory Rate 27 H 21 H Blood Pressure Pulse Oximetry 97 98 Oxygen Delivery Oxygen Flow Rate 06/26/25 10:01 06/26/25 10:15 06/26/25 10:27 Temperature Pulse Rate 72 72 68 Respiratory Rate 30 H 22 H 17 Blood Pressure 86/44 L 98/59 L Pulse Oximetry 94 Oxygen Delivery Oxygen Flow Rate 06/26/25 10:30 06/26/25 10:31 06/26/25 10:36 Temperature Pulse Rate 69 68 68 Respiratory Rate 28 H 12 Blood Pressure 132/39 L 97/45 L Pulse Oximetry 98 Oxygen Delivery Oxygen Flow Rate 06/26/25 10:38 06/26/25 10:45 06/26/25 10:46 Temperature Pulse Rate 68 70 70 Respiratory Rate 23 H 22 H Blood Pressure 86/44 L 125/44 L Pulse Oximetry Oxygen Delivery Oxygen Flow Rate 06/26/25 10:51 06/26/25 10:56 06/26/25 10:57 Temperature 96.4 F L Pulse Rate 67 66 Respiratory Rate 23 H 29 H 29 H Blood Pressure 122/46 L 114/45 L Pulse Oximetry Oxygen Delivery Oxygen Flow Rate 06/26/25 11:00 06/26/25 11:01 06/26/25 11:05 Temperature 96.4 F L Pulse Rate 67 67 Respiratory Rate 28 H 29 H Blood Pressure 112/45 L Pulse Oximetry 99 100 Oxygen Delivery Oxygen Flow Rate 06/26/25 11:06 06/26/25 11:11 06/26/25 11:15 Temperature Pulse Rate 67 71 65 Respiratory Rate 26 H 22 H 23 H Blood Pressure 116/46 L 113/44 L Pulse Oximetry 100 100 99 Oxygen Delivery Oxygen Flow Rate 06/26/25 11:21 06/26/25 11:22 06/26/25 11:26 Temperature 95.4 F L Pulse Rate 64 66 63 Respiratory Rate 21 H 19 23 H Blood Pressure 103/36 L 113/39 L Pulse Oximetry 99 99 100 Oxygen Delivery Oxygen Flow Rate 06/26/25 11:29 06/26/25 11:30 06/26/25 11:31 Temperature Pulse Rate 72 66 Respiratory Rate 21 H 22 H Blood Pressure 112/44 L Pulse Oximetry 96 100 100 Oxygen Delivery Nasal Cannula Oxygen Flow Rate 2 06/26/25 11:36 06/26/25 11:37 06/26/25 11:41 Temperature Pulse Rate 66 73 69 Respiratory Rate 20 23 H 20 Blood Pressure 123/42 L 127/44 L Pulse Oximetry 100 100 100 Oxygen Delivery Oxygen Flow Rate 06/26/25 11:45 06/26/25 11:46 06/26/25 11:51 Temperature Pulse Rate 68 66 66 Respiratory Rate 24 H 23 H 20 Blood Pressure 122/44 L 118/40 L Pulse Oximetry Oxygen Delivery Oxygen Flow Rate 06/26/25 11:56 06/26/25 13:27 Temperature Pulse Rate 66 60 Respiratory Rate 18 22 H Blood Pressure 121/41 L 94/78 L Pulse Oximetry 100 Oxygen Delivery Oxygen Flow Rate Exam Narrative: General: Ill-appearing gentleman, appears older than stated age, patient with some respiratory distress HEENT:? Pupils equal and reactive, sclera was clear, dry oral mucosa Neck:? Supple Respiratory:? Coarse breath sounds bilaterally with rales, no wheezing, decreased at bases Cardiac:? S1-S2 normal, regular rate and rhythm Abdomen:? Soft, nontender, nondistended, normoactive bowel sounds Extremities:? Bilateral BKA, stumps looked good bilaterally Neuro:? Patient is awake, lethargic, opens his eyes to name, nods to questions and follows simple commands Skin:? Right upper extremity for dialysis fistula Psych:? Unable to assess at this Results Labs 06/26/25 06:22 06/26/25 06:22 Labs: Short CBC 06/26/25 Range/Units 06:22 WBC 13.3 H (4.5-10.0) K/mm3 Hgb 9.4 L (14.0-18.0) g/dL Hct 30.7 L (42.0-52.0) % Plt Count 149 L (150-375) k/mm3 BMP 06/26/25 06:22 Sodium 136 L Potassium 3.4 Chloride 98 Carbon Dioxide 32 H BUN 23 H Creatinine 2.76 H Glucose 137 H Calcium 7.4 L Cardiac Enzymes 06/26/25 Range/Units 06:22 Total Creatine Kinase 94 (55-170) U/L Liver Function 06/26/25 Range/Units 06:22 Total Bilirubin 0.9 (0.2-1.3) mg/dL AST 28 (17-59) U/L ALT 18 (6-50) U/L Alkaline Phosphatase 198 H (38-126) U/L Albumin 2.5 L (3.5-5.1) g/dL Quality VTE Prophylaxis VTE prophylaxis: pharmacologic ordered Hospitalist MIPS Advance Care Plan I have confirmed that the patient's Advanced Care Plan is present, code status is documented, or surrogate decision maker is listed in patient medical record.: Yes Medication Reconciliation I have utilized all available resources to obtain, update and review the patients current medications (includes all prescriptions, OTC, herbals, cannabis, and nutritional supplements).: Yes
[2025-06-26] MEDS: CENTRAL LINE FLUSH 10 ML IV PUSH ×2 (14:15→22:07)
--- NOTE | 2025-06-26 14:17 | PM.IMHP ---
H&P: HPI History of Present Illness Date/Time: 06/26/25 14:17 Chief Complaint: AMS, Fever Narrative: 60 y/o M with PMH of iron deficiency anemia/anemia of chronic disease, pAFib, coronary artery disease s/p multiple stents and CABG, diabetes, ESRD on HD, CHF, and RISA not on CPAP presents here with altered mental status and fever. The patient presents here from [facility] via EMS on 06/26 for further evaluation of altered mental status fever. The patient is currently A&Ox0 and HPI was obtained through ED report and chart review. Per chart review, he was initially evaluated yesterday on 06/25 for altered mental status. Alteration was noted during his dialysis treatment, was able to receive his full dialysis treatment. Per family at that time, they reported he has been slightly more confused since starting a new pain medication. He did not receive that medication yesterday. Patient later improved during his ED evaluation and became orientated to self and place. He was discharged back to his facility with recommendations/referral for further wound care for his chronic decubitus ulcer of the sacrum. He is returning today as he has developed recurrent altered mental status and now has a fever. Upon arrival to the emergency department he was found to be febrile with a temp of 102.3? F and mildly hypotensive. Despite improvement in blood pressure, the patient remains A&Ox0. No further history or review of systems available at this time. Initial VS at presentation: 102.3? F, HR 76, R 21, 106/50, and 91% on 1L nasal cannula. Now 97% on 2 L nasal cannula. Lowest BP in the ED seen was 86/44, now on pressor. ED workup showed: WBC 13.3 9, hemoglobin 9.4 (10.9 on 06/25, at baseline), INR 1.8, sodium 136, potassium 3.4, creatinine 2.76 and GFR 23, glucose 137, lactic 2.0 H, BNP greater than 30,000, albumin 2.5. CXR showed interstitial pulmonary edema and/or pneumonitis, persistent significant bibasilar atelectasis and/or airspace disease. CT of the abdomen/pelvis showed a decubitus wound with no evidence of osteomyelitis/abscess, no acute abnormality within abdomen or pelvis. Repeat CXR post central line showed no pneumothorax and improving interstitial pulmonary edema. Review of Systems Review of Systems: ROS unobtainable: Yes unobtainable due to mental status [facility] Past Medical History Medical History Type 2 diabetes mellitus COPD (chronic obstructive pulmonary disease) Intracardiac thrombus PVD (peripheral vascular disease) Coronary artery disease History of multiple stents and 4 vessel bypass. Combined systolic and diastolic congestive heart failure Iron deficiency anemia MRSA infection Clostridium difficile diarrhea Paroxysmal atrial fibrillation Transient atrial fibrillation following bypass surgery. Hyperlipidemia End-stage renal disease on hemodialysis Anxiety and depression Obstructive sleep apnea does not use a CPAP Anemia of chronic disease Diabetic nephropathy Diabetic peripheral neuropathy Arthritis Surgical History Surgical History History of right below knee amputation History of five vessel coronary artery bypass (2018) [facility] History of cataract extraction with lens replacement History of coronary artery stent placement History of cardiac catheterization History of left below knee amputation History of amputation of toe left 5th toe 2013 small toe on the right amputated Family History Family History Sibling Patient's sister is Diabetes mellitus Sister Acute myocardial infarction Three brothers and 2 sisters History of blood clots Sister Abdominal aortic aneurysm Sister Dementia Brother COPD (chronic obstructive pulmonary disease) Brother Father Acute myocardial infarction, Onset Age: 65 Mother History of blood clots Hypertension, Onset Age: 80 Social History Social History Social History: Surrogate medical decision maker: Melodie Roca (niece) or Alejandra Murray (sister). Code status: DNR/DNI Smoking packs per day: 0.25 Smoking cigarettes per day: 5.0 Years smoked: 30 Smoking pack-years: 7.50 Smoking status: Former smoker Alcohol intake: unknown Drinks per week: 2 Alcohol use details: Social alcohol use. Substance use: unknown Substance use type: marijuana Last use: 2019 Do You Feel Safe in your Home?: Yes Lack of Transportation: No Lack of Food: Never True Current Housing: I Have Housing Concerned About Future Housing: No Difficulty Paying Gas/Electric Bills: No Difficulty Paying for Meds: No Currently Unemployed: No Education: Don't Know Difficulty w/ Childcare or Family Care: No Additional living arrangements comments: [facility]. Additional occupation/education comments: Disabled. Spiritual care concerns: No Meds Home Medications and Allergies Home Medications ?Medication ?Instructions ?Recorded ?Confirmed ?Type ferrous sulfate 325 mg (65 mg 325 mg PO DAILY 06/01/20 06/26/25 History iron) tablet nitroglycerin 0.4 mg sublingual 0.4 mg sublingual Q5-15M PRN Chest 06/01/20 06/26/25 History tablet Pain atorvastatin 40 mg tablet (Lipitor) 40 mg PO HS 12/23/20 06/26/25 History folic acid 1 mg tablet 1 mg PO DAILY 12/23/20 06/26/25 History gabapentin 100 mg tablet 200 mg PO HS 12/23/20 06/26/25 History sevelamer carbonate 800 mg tablet 800 mg PO DAILY@1700 12/23/20 06/26/25 History tamsulosin 0.4 mg capsule (Flomax) 0.4 mg PO DAILY 12/23/20 06/26/25 History linagliptin 5 mg tablet (Tradjenta) 5 mg PO DAILY 01/13/23 06/26/25 History mirtazapine 15 mg tablet 15 mg PO HS 01/13/23 06/26/25 History sertraline 50 mg tablet 50 mg PO QAM 01/13/23 06/26/25 History midodrine 10 mg tablet 10 mg PO BID 09/17/23 06/26/25 History acetaminophen 325 mg tablet 650 mg PO Q6H PRN Pain (Scale 10/29/23 06/26/25 History (Tylenol) Score 1-3) naloxone 4 mg/actuation nasal spray 1 spray intranasal Q3M PRN Opioid 10/29/23 06/26/25 History Overdose sennosides 8.6 mg-docusate sodium 1 tablet PO BID PRN Constipation 10/29/23 06/26/25 History 50 mg tablet (Senna Plus) diphenoxylate-atropine 2.5 2 tablet PO TID PRN Diarrhea #15 03/06/24 06/26/25 Rx mg-0.025 mg tablet (Lomotil) tabs tramadol 50 mg tablet 50 mg PO Q4H PRN Pain (Scale Score 03/06/24 06/26/25 Rx 4-6) #15 tabs ascorbic acid (vitamin C) 500 mg 500 mg PO Q12H 03/10/25 06/26/25 History tablet famotidine 20 mg tablet 20 mg PO Q12H 03/10/25 06/26/25 History mirtazapine 7.5 mg tablet 7.5 mg PO HS 03/10/25 06/26/25 History tizanidine 2 mg tablet 2 mg PO Q12H 03/10/25 06/26/25 History vitamin B complex-vitamin C-folic 1 tablet PO DAILY 03/10/25 06/26/25 History acid 0.8 mg tablet (Nephro-[place]) zinc sulfate 220 mg capsule 220 mg PO DAILY 03/10/25 06/26/25 History aspirin 325 mg tablet,delayed 325 mg PO QAM #30 tabs 03/17/25 06/26/25 Rx release collagenase clostridium histo. 250 1 applic topical DAILY 06/26/25 06/26/25 History unit/gram topical ointment (Santyl) tizanidine 2 mg tablet 2 mg PO TID 06/26/25 06/26/25 History Allergies Allergy/AdvReac Type Severity Reaction Status Date / Time Penicillins Allergy Unknown Unknown Verified 06/26/25 11:01 bee venom protein (honey bee) Allergy Swelling Verified 06/26/25 11:01 Vital Signs Vital Signs - 24 hr 06/26/25 05:51 06/26/25 06:20 06/26/25 06:44 Temperature 102.3 F H Pulse Rate 76 78 79 Respiratory Rate 21 H 16 Blood Pressure 106/50 L 129/42 L Pulse Oximetry 91 92 Oxygen Delivery Nasal Cannula Oxygen Flow Rate 1 06/26/25 08:08 06/26/25 09:32 06/26/25 09:35 Temperature Pulse Rate 81 73 73 Respiratory Rate 16 14 11 L Blood Pressure 92/42 L 90/43 L Pulse Oximetry 98 98 98 Oxygen Delivery Oxygen Flow Rate 06/26/25 09:36 06/26/25 09:45 06/26/25 10:00 Temperature Pulse Rate 74 73 72 Respiratory Rate 27 H 21 H Blood Pressure Pulse Oximetry 97 98 Oxygen Delivery Oxygen Flow Rate 06/26/25 10:01 06/26/25 10:15 06/26/25 10:27 Temperature Pulse Rate 72 72 68 Respiratory Rate 30 H 22 H 17 Blood Pressure 86/44 L 98/59 L Pulse Oximetry 94 Oxygen Delivery Oxygen Flow Rate 06/26/25 10:30 06/26/25 10:31 06/26/25 10:36 Temperature Pulse Rate 69 68 68 Respiratory Rate 28 H 12 Blood Pressure 132/39 L 97/45 L Pulse Oximetry 98 Oxygen Delivery Oxygen Flow Rate 06/26/25 10:38 06/26/25 10:45 06/26/25 10:46 Temperature Pulse Rate 68 70 70 Respiratory Rate 23 H 22 H Blood Pressure 86/44 L 125/44 L Pulse Oximetry Oxygen Delivery Oxygen Flow Rate 06/26/25 10:51 06/26/25 10:56 06/26/25 10:57 Temperature 96.4 F L Pulse Rate 67 66 Respiratory Rate 23 H 29 H 29 H Blood Pressure 122/46 L 114/45 L Pulse Oximetry Oxygen Delivery Oxygen Flow Rate 06/26/25 11:00 06/26/25 11:01 06/26/25 11:05 Temperature 95.3 F L 96.4 F L Pulse Rate 67 67 Respiratory Rate 28 H 29 H Blood Pressure 112/45 L Pulse Oximetry 99 100 Oxygen Delivery Oxygen Flow Rate 06/26/25 11:06 06/26/25 11:11 06/26/25 11:15 Temperature Pulse Rate 67 71 65 Respiratory Rate 26 H 22 H 23 H Blood Pressure 116/46 L 113/44 L Pulse Oximetry 100 100 99 Oxygen Delivery Oxygen Flow Rate 06/26/25 11:21 06/26/25 11:22 06/26/25 11:26 Temperature 95.4 F L Pulse Rate 64 66 63 Respiratory Rate 21 H 19 23 H Blood Pressure 103/36 L 113/39 L Pulse Oximetry 99 99 100 Oxygen Delivery Oxygen Flow Rate 06/26/25 11:29 06/26/25 11:30 06/26/25 11:31 Temperature Pulse Rate 72 66 Respiratory Rate 21 H 22 H Blood Pressure 112/44 L Pulse Oximetry 96 100 100 Oxygen Delivery Nasal Cannula Oxygen Flow Rate 2 06/26/25 11:36 06/26/25 11:37 06/26/25 11:41 Temperature Pulse Rate 66 73 69 Respiratory Rate 20 23 H 20 Blood Pressure 123/42 L 127/44 L Pulse Oximetry 100 100 100 Oxygen Delivery Oxygen Flow Rate 06/26/25 11:45 06/26/25 11:46 06/26/25 11:51 Temperature Pulse Rate 68 66 66 Respiratory Rate 24 H 23 H 20 Blood Pressure 122/44 L 118/40 L Pulse Oximetry Oxygen Delivery Oxygen Flow Rate 06/26/25 11:56 06/26/25 11:57 06/26/25 12:15 Temperature Pulse Rate 66 66 64 Respiratory Rate 18 21 H 22 H Blood Pressure 121/41 L Pulse Oximetry 95 Oxygen Delivery Oxygen Flow Rate 06/26/25 12:16 06/26/25 12:36 06/26/25 12:37 Temperature Pulse Rate 64 63 62 Respiratory Rate 21 H 22 H 19 Blood Pressure 119/42 L 119/44 L Pulse Oximetry 100 100 99 Oxygen Delivery Oxygen Flow Rate 06/26/25 12:41 06/26/25 12:45 06/26/25 12:46 Temperature Pulse Rate 62 61 61 Respiratory Rate 22 H 18 20 Blood Pressure 118/41 L 121/41 L Pulse Oximetry 99 99 99 Oxygen Delivery Oxygen Flow Rate 06/26/25 12:51 06/26/25 12:56 06/26/25 13:00 Temperature Pulse Rate 61 60 61 Respiratory Rate 19 21 H 21 H Blood Pressure 116/42 L 115/44 L Pulse Oximetry 100 100 100 Oxygen Delivery Oxygen Flow Rate 06/26/25 13:01 06/26/25 13:11 06/26/25 13:15 Temperature Pulse Rate 60 67 68 Respiratory Rate 18 21 H 19 Blood Pressure 122/45 L 118/46 L Pulse Oximetry 99 Oxygen Delivery Oxygen Flow Rate 06/26/25 13:27 06/26/25 13:30 06/26/25 13:35 Temperature Pulse Rate 60 59 L 59 L Respiratory Rate 22 H 23 H 20 Blood Pressure 94/78 L 118/43 L 116/45 L Pulse Oximetry 100 100 97 Oxygen Delivery Oxygen Flow Rate 06/26/25 13:40 06/26/25 13:45 06/26/25 13:50 Temperature Pulse Rate 60 60 62 Respiratory Rate 18 22 H 21 H Blood Pressure 120/51 L 116/42 L 134/50 L Pulse Oximetry 98 99 98 Oxygen Delivery Oxygen Flow Rate 06/26/25 13:55 06/26/25 14:00 06/26/25 14:05 Temperature Pulse Rate 61 60 60 Respiratory Rate 25 H 22 H 22 H Blood Pressure 119/43 L 118/43 L 123/47 L Pulse Oximetry 98 96 96 Oxygen Delivery Oxygen Flow Rate 06/26/25 14:10 06/26/25 14:15 Temperature Pulse Rate 60 59 L Respiratory Rate 22 H 20 Blood Pressure 126/44 L 120/51 L Pulse Oximetry 96 97 Oxygen Delivery Oxygen Flow Rate Exam Const: Other: , male, appears older than stated age, ill-appearing, mild respiratory distress noted HENMT: Face/Nose/Sinus: Normal nares present Mouth: Yes dry mucous membranes Eyes: General: appearance normal, both eyes and all related structures Sclera: sclerae normal Pupils: Equal, round and reactive pupils present EOM: EOMs intact bilaterally Resp: Other: Mild tachypnea without accessory muscle use. Nasal cannula place, tolerating well. Coarse breath sounds bilaterally in the upper and lower lung [place], left worse than right. No rales or wheezing appreciated. Decreased bibasilarly. Cardio: Rate: regular rate Rhythm: regular rhythm Other: S1-S2 present without murmur, rub, ectopy GI: Other: Abdomen soft, nondistended, nontender. Normoactive bowel sounds in all quadrants. Skin: General skin exam: normal color Other: Small areas of eschar to the left hand, dorsal aspect. No signs of infection. Some surrounding erythema. Neuro: Other: Patient is alert, will attempt to follow commands. A&O times 0. Opens eyes to name. Extrem: Other: Bilateral BKAs. No skin breakdown on exam. RUE dialysis fistula, +thrill and bruit. Psych: Other: Unable to assess at this time H&P: Results Labs Labs: Short CBC 06/26/25 Range/Units 06:22 WBC 13.3 H (4.5-10.0) K/mm3 Hgb 9.4 L (14.0-18.0) g/dL Hct 30.7 L (42.0-52.0) % Plt Count 149 L (150-375) k/mm3 BMP 06/26/25 06:22 Sodium 136 L Potassium 3.4 Chloride 98 Carbon Dioxide 32 H BUN 23 H Creatinine 2.76 H Glucose 137 H Calcium 7.4 L Cardiac Enzymes 06/26/25 Range/Units 06:22 Total Creatine Kinase 94 (55-170) U/L Liver Function 06/26/25 Range/Units 06:22 Total Bilirubin 0.9 (0.2-1.3) mg/dL AST 28 (17-59) U/L ALT 18 (6-50) U/L Alkaline Phosphatase 198 H (38-126) U/L Albumin 2.5 L (3.5-5.1) g/dL Assessment and Plan Assessment and plan (1) Shock: Code(s): R57.9 - Shock, unspecified Status: Acute Assessment and Plan: Patient met SIRS criteria due to RR >20, WBC >12, +fever. Presented to [facility] on 06/26 with altered mental status, hypotension, shortness of breath, and fever. Patient started on norepinephrine gtt for acute hypotension to maintain MAP >65. Shock secondary to sepsis versus cardiogenic. Given patient has history of biventricular dysfunction cardiogenic cannot be excluded, however clinical picture (fever, shortness of breath) and imaging findings concerning for pneumonia as well as the chronic decubitus ulcer more so fit the picture of sepsis. - Lactic 2.0, check procalcitonin. - IV fluids held as the patient's BNP was significantly elevated and imaging showed pulmonary edema - CXR on 06/26 showed bilateral infiltrates/pulmonary edema with possible perihilar and airspace opacity/pneumonia - started on broad-spectrum antibiotics including cefepime, vancomycin, doxycycline, and Flagyl on 06/26 to cover pneumonia and possible pathogens affecting the patient's decubitus ulcer - admission to the ICU with television service engineer consulted - continue norepinephrine to maintain map greater than 65 (2) Pulmonary edema: Qualifiers: Chronicity: acute Qualified Code(s): J81.0 - Acute pulmonary edema Code(s): J81.1 - Chronic pulmonary edema Status: Acute Assessment and Plan: Pulmonary edema seen on CXR. Patient has history of combined systolic/diastolic CHF. Fluid balance managed via dialysis that he receives Mondays, Wednesdays, Fridays. Has not missed any treatments and has been able to receive his full treatments. - nephrology consulted for inpatient dialysis. - television service engineer spoke with Nishi ROBERTSON, plan for dialysis today (06/26) - monitor oxygen saturations (3) Pneumonia: Qualifiers: Laterality: left Lung location: unspecified part of lung Pneumonia type: due to unspecified organism Qualified Code(s): J18.9 - Pneumonia, unspecified organism Code(s): J18.9 - Pneumonia, unspecified organism Status: Acute Assessment and Plan: - antibiotics initiated as above, see shock - blood cultures pending - MRSA PCR negative - antipyretic p.r.n. (4) Decubitus ulcer: Code(s): L89.90 - Pressure ulcer of unspecified site, unspecified stage Status: Acute Assessment and Plan: Patient has longstanding chronic decubitus ulcer. CT of the abdomen/pelvis showed no current complicating features including osteomyelitis or abscess. - general surgery consulted (5) ESRD (end stage renal disease) on dialysis: Code(s): N18.6 - End stage renal disease; Z99.2 - Dependence on renal dialysis Status: Acute Assessment and Plan: Patient has history of ESRD on hemodialysis. Receives treatment on Mondays, Wednesdays, Fridays. Per chart review, the patient was able to receive his full dialysis treatment yesterday (Saturday, 06/25). However the patient currently appears volume overloaded based off clinical exam and CXR findings. Cutting Pressman spoke with network technology instructor, plan for dialysis today. Nephrology aware patient is currently requiring norepinephrine and currently has a mild O2 requirement. - monitor electrolytes - monitor blood pressure (6) Type 2 diabetes mellitus: Qualifiers: Chronic kidney disease stage: on chronic dialysis Diabetes mellitus complication detail: with chronic kidney disease Diabetes mellitus complication status: with kidney complications Diabetes mellitus nurse monitoring insulin use: without longterm use Qualified Code(s): E11.22 - Type 2 diabetes mellitus with diabetic chronic kidney disease; N18.6 - End stage renal disease; Z99.2 - Dependence on renal dialysis Code(s): E11.9 - Type 2 diabetes mellitus without complications Status: Chronic Assessment and Plan: History of type 2 diabetes complicated by ESRD, bilateral BKA, and diabetic neuropathy. - hypoglycemia protocol - POC blood glucose Q6H - hold home medications including Sevelamer and Tradjenta - correct regimen ordered - low dose Q6H - A1C 5.6% on 10/20/2024 (7) Anemia of chronic disease: Code(s): D63.8 - Anemia in other chronic diseases classified elsewhere Status: Chronic Assessment and Plan: Patient has history of anemia of chronic disease (ESRD). - Hgb 9.4 upon admission, at baseline - transfuse if <7 - monitor Plan Home medications held as the patient is currently somnolent and A&O times 0. Made NPO. Resume home medications once mental status improved and when appropriate. Diet: NPO GI Prophylaxis: Pantoprazole IV DVT Prophylaxis: Heparin SQ IV fluids: none, concern for volume overload and plan for diuresis via HD Lines/Tubes: Peripheral IV Code Status: DNR, paperwork in patient's chart Critical Care Time: I personally spent 40 minutes of direct patient care including (but not limited to) the physical examination, decision-making, bedside evaluation, review of medical records, review of labs and imaging, discussion with nursing staff and other providers for collaborative, critical care management of this patient. Quality VTE Prophylaxis VTE prophylaxis: pharmacologic ordered Hospitalist [facility] Advance Care Plan I have confirmed that the patient's Advanced Care Plan is present, code status is documented, or surrogate decision maker is listed in patient medical record.: Yes Medication Reconciliation I have utilized all available resources to obtain, update and review the patients current medications (includes all prescriptions, OTC, herbals, cannabis, and nutritional supplements).: Yes
--- NOTE | 2025-06-26 14:19 | PC.NURSE ---
EDP Dr. De Los Santos was made aware at 1121 of pt low temperature. EDP did not want a mccann cath or any blackwooder on pt
--- NOTE | 2025-06-26 14:51 | WNDPHOTO ---
PHOTO ONLY - See Nursing Notes and/ or assessments for documentation.
--- NOTE | 2025-06-26 14:59 | ADMGEN ---
This patient, Kobi Salter, was admitted to Intensive Care Unit-2. Patient/family oriented to hospital policies and general routines including ID bracelet, bed and alarms, visiting hours, pain management, procedures, bathroom and other care routines, personal items, smoking policy, room service/diet, and visiting hours. Information on how to activate the Rapid Response Team has been discussed. Patient/Family are encouraged to report perceived risks to care and to ask questions if they do not understand what they are told or what they should do.
[2025-06-26 17:35] LABS: Ammonia < 9 umol/L (9-30)
[2025-06-26] MEDS: metroNIDAZOLE 500 MG/ISO 100ML 500 MG/100 ML BAG 100 MG IVPB (18:58)
[2025-06-26] MEDS: DOXYCYCLINE IV 100 MG in SODIUM CHLORIDE 0.9% IV 100 ML IVPB (18:58)
[2025-06-26] MEDS: ALBUMIN HUMAN 25% 25 GM/100 ML 100 ML IVPB (18:58)
[2025-06-26] MEDS: PANTOPRAZOLE SODIUM IV 40 MG VIAL IV PUSH (19:59)
[2025-06-27] VITALS (22 sets, daily range): BP systolic 99–140; BP diastolic 38–85; PULSE 64–85; RESP 18–24; TEMP 36.4–37.3; O2SAT 91–100
[2025-06-27] MEDS: ALBUMIN HUMAN 25% 25 GM/100 ML 100 ML IVPB ×3 (00:17→11:40)
[2025-06-27] MEDS: VANCOMYCIN HCL 1,000 MG in SODIUM CHLORIDE 0.9% IV 250 ML 250 MG IVPB (00:24)
[2025-06-27] MEDS: DOXYCYCLINE IV 100 MG in SODIUM CHLORIDE 0.9% IV 100 ML IVPB ×2 (03:03→15:00)
[2025-06-27] MEDS: metroNIDAZOLE 500 MG/ISO 100ML 500 MG/100 ML BAG 100 MG IVPB ×3 (03:05→19:25)
[2025-06-27 05:18] LABS: Hematocrit 32.3 % (42.0-52.0); Hemoglobin 9.8 g/dL (14.0-18.0); Immature Granulocyte Percent A 0.3 % (0-0.5); Lymphocytes Absolute Auto 0.28 K/mm3 (0.9-3.2); Mean Corpuscular HGB Conc 30.3 g/dl (32-36); Mean Corpuscular Hemoglobin 30.5 pg (26-34); Mean Corpuscular Volume 100.6 fl (80-100); Nucleated Red Blood Cells Absolute Auto 0.000 K/mm3 (0.0-0.012); Nucleated Red Blood Cells Perc 0.0 % (0.0-0.2); Platelet Count Result 108 k/mm3 (150-375); Red Blood Count 3.21 M/mm3 (4.6-6.20); White Blood Count 9.2 K/mm3 (4.5-10.0)
[2025-06-27 05:29] LABS: INR 2.0; Prothrombin Time 22.7 Seconds (11.1-14.7)
[2025-06-27 05:30] LABS: Partial Thromboplastin Time 46.2 Seconds (22.3-36.8)
[2025-06-27 05:35] LABS: Alanine Aminotransferase 14 U/L (6-50); Albumin Level 3.1 g/dL (3.5-5.1); Alkaline Phosphatase 162 U/L (38-126); Anion Gap 8 mmol/L (4-12); Aspartate Amino Transferase 24 U/L (17-59); Bilirubin,Total 1.0 mg/dL (0.2-1.3); Blood Urea Nitrogen 15 mg/dL (9-20); Calcium 8.1 mg/dL (8.4-10.2); Carbon Dioxide 31 mmol/L (22-30); Chloride 98 mmol/L (98-107); Estimated Glomerular Filt Rate 30; Glucose 118 mg/dL (65-110); Magnesium 1.8 mg/dL (1.6-2.3); Potassium 3.6 mmol/L (3.4-5.0); Sodium 137 mmol/L (137-145); Total Protein 6.9 g/dL (6.3-8.2)
[2025-06-27 05:43] LABS: Alveolar/Arterial O2 Gradient 49.1 mmHg; Carboxyhemoglobin 0.9 % THb (0-2.0); Fractional Inspired Oxygen 25 %; HCO3 ABG 28.5 mEq/l (22.0-26.0); Liters per Minute 1.0 LPM; Methemoglobin ABG 0.3 %THb (0-1.5); Oxygen Content ABG 14.2 %vol (16.0-22.0); Oxygen Saturation ABG 96.4 % (95.0-100.0); PCO2 ABG 40.9 mmHg (35.0-45.0); PO2 ABG 80.6 mmHg (80.0-100.0); PO2 FiO2 Ratio Arterial Blood 3.22 %; Reduced Hemoglobin 4.0 %THb (0-5.0); Site Drawn LEFT BRACHIAL
[2025-06-27 05:48] LABS: Anisocytosis 1+; Hypochromasia 1+; Macrocytosis 1+ (NORMAL)
[2025-06-27 05:49] LABS: Schistocytes None Seen
[2025-06-27] MEDS: CENTRAL LINE FLUSH 10 ML IV PUSH ×2 (06:00→13:42)
[2025-06-27 06:50] LABS: Ammonia < 9 umol/L (9-30)
[2025-06-27] MEDS: SODIUM PHOSPHATE 20 MM in DEXTROSE 5% IN WATER 250 ML 50 MM IVPB (08:52)
[2025-06-27] MEDS: PANTOPRAZOLE SODIUM IV 40 MG VIAL IV PUSH ×2 (08:52→20:23)
[2025-06-27] MEDS: CEFEPIME 1 GM in SODIUM CHLORIDE 0.9% IV 50 ML 100 ML IVPB (08:52)
--- NOTE | 2025-06-27 09:07 | P.PNINT_ITS ---
Progress Note: A&P Assessment and Plan (1) Shock: Code(s): R57.9 - Shock, unspecified Status: Acute Assessment and Plan: Patient presented with altered mental status, hypotension, shortness of breath -shock likely septic versus cardiogenic given history of biventricular dysfunction -lactic acid was 2.0, extremities were warm -etiology: Likely decubitus ulcer, pneumonia -patient has been febrile with leukocytosis -fits septic shock more so than other kinds of shock -significantly elevated pro BNP, no IV fluids were infused -chest x-ray showed bilateral infiltrates/pulmonary edema with possible perihilar and airspace opacity/pneumonia -06/26: started on cefepime, vancomycin, doxycycline and Flagyl for anaerobe coverage -06/26: Blood cultures obtained -lactic acidosis has resolved -ammonia levels within normal limits -patient much more awake this morning, oriented, follows commands and answers questions -patient on midodrine at home, will restart (2) Pulmonary edema: Qualifiers: Chronicity: acute Qualified Code(s): J81.0 - Acute pulmonary edema Code(s): J81.1 - Chronic pulmonary edema Status: Acute Assessment and Plan: Pulmonary edema likely related to volume overload, unknown when he got his last dialysis -discussed with Dr. Almodovar, regarding patient will require dialysis to which she is agreeable. -06/26: Dialyzed with 3000 mL in fluid removal, chest x-ray looks much better, lungs sound better on auscultation (3) Pneumonia: Qualifiers: Laterality: left Lung location: unspecified part of lung Pneumonia type: due to unspecified organism Qualified Code(s): J18.9 - Pneumonia, unspecified organism Code(s): J18.9 - Pneumonia, unspecified organism Status: Acute Assessment and Plan: Antibiotics as above, will deescalate if blood cultures are negative -MRSA screen negative (4) End-stage renal disease on hemodialysis: Code(s): N18.6 - End stage renal disease; Z99.2 - Dependence on renal dialysis Status: Acute Assessment and Plan: End-stage renal disease on hemodialysis, unknown what days he gets his dialysis or we he gets his dialysis -nephrology has been consulted -06/26: Dialyzed -further dialysis per nephrology (5) Type 2 diabetes mellitus: 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: without half-way use Diabetes mellitus complication status: with kidney complications Diabetes mellitus complication detail: with chronic kidney disease Chronic kidney disease stage: on chronic dialysis Qualified Code(s): E11.22 - Type 2 diabetes mellitus with diabetic chronic kidney disease; N18.6 - End stage renal disease; Z99.2 - Dependence on renal dialysis Code(s): E11.9 - Type 2 diabetes mellitus without complications Status: Chronic Assessment and Plan: Continue sliding scale insulin and Accu-Cheks -will start renal diet (6) Decubitus ulcer: Code(s): L89.90 - Pressure ulcer of unspecified site, unspecified stage Status: Acute Assessment and Plan: Surgery following the patient, awaiting their recommendations -will have Wound Care evaluate the pain Plan DVT prophylaxis: Heparin subQ Stress ulcer prophylaxis: Protonix Nutrition: Will start renal diet Code Status: Full code Critical Care Time Spent: 33 minutes -will restart appropriate home medications Due to a high probability of clinically significant, life threatening deterioration, the patient required my highest level of preparedness to intervene emergently and I personally spent this critical care time directly and personally managing the patient. This critical care time included obtaining a history; examining the patient; pulse oximetry; ordering and review of studies; arranging urgent treatment with development of a management plan; evaluation of patient's response to treatment; frequent reassessment; and discussions with other providers. It was exclusive of separately billable procedures and treating other patients and teaching time. Please see Assessment and Plan section and the rest of the note for further information on patient assessment and treatment This dictation may have been done utilizing a voice recognition system. Attempts have been made to correct errors. However, there may be uncorrected grammatical, spelling, and recognitions errors present. Subjective Date/time seen: 06/27/25 09:07 Interval history: Reason for consult: Shock, pulmonary edema, end-stage renal disease on hemodialysis altered mental status for fevers 06/27/2025: Patient seen and examined this morning, is awake, alert, oriented x3. Able to answer questions appropriately. Defer you more awake since yesterday. Receive dialysis yesterday with 3000 mL in fluid removal. Patient remains on Levophed at 1 mcg/min. As and uric due to end-stage renal disease on hemodialysis, afebrile. Denies any shortness of breath, abdominal pain, nausea, vomiting, chest pain at this time Review of Systems Review of Systems: All systems reviewed & are unremarkable except as noted in HPI and below Exam Narrative: General: Ill-appearing gentleman, appears older than stated age, in no acute distress HEENT:? Pupils equal and reactive, sclera was clear, moist oral mucosa Neck:? Supple Respiratory:? Coarse breath sounds bilaterally, decreased at bases, no rales, no wheezing, lungs sound better this morning Cardiac:? S1-S2 normal, regular rate and rhythm Abdomen:? Soft, nontender, nondistended, normoactive bowel sounds Extremities:? Bilateral BKA, stumps looked good bilaterally Neuro:? Patient is awake, alert, oriented x3, , answers to questions appropriately and follows simple commands Skin:? Right upper extremity for dialysis fistula Psych:? Normal mentation, depressed affect Objective Data Vital Signs Vital Signs: Vital Signs - 24 hr 06/26/25 09:32 06/26/25 09:35 06/26/25 09:36 Temperature Pulse Rate 73 73 74 Respiratory Rate 14 11 L Blood Pressure 92/42 L 90/43 L Pulse Oximetry 98 98 97 Oxygen Delivery Oxygen Flow Rate 06/26/25 09:45 06/26/25 10:00 06/26/25 10:01 Temperature Pulse Rate 73 72 72 Respiratory Rate 27 H 21 H 30 H Blood Pressure 86/44 L Pulse Oximetry 98 94 Oxygen Delivery Oxygen Flow Rate 06/26/25 10:15 06/26/25 10:27 06/26/25 10:30 Temperature Pulse Rate 72 68 69 Respiratory Rate 22 H 17 28 H Blood Pressure 98/59 L Pulse Oximetry Oxygen Delivery Oxygen Flow Rate 06/26/25 10:31 06/26/25 10:36 06/26/25 10:38 Temperature Pulse Rate 68 68 68 Respiratory Rate 12 Blood Pressure 132/39 L 97/45 L 86/44 L Pulse Oximetry 98 Oxygen Delivery Oxygen Flow Rate 06/26/25 10:45 06/26/25 10:46 06/26/25 10:51 Temperature Pulse Rate 70 70 Respiratory Rate 23 H 22 H 23 H Blood Pressure 125/44 L 122/46 L Pulse Oximetry Oxygen Delivery Oxygen Flow Rate 06/26/25 10:56 06/26/25 10:57 06/26/25 11:00 Temperature 96.4 F L Pulse Rate 67 66 67 Respiratory Rate 29 H 29 H 28 H Blood Pressure 114/45 L Pulse Oximetry 99 Oxygen Delivery Oxygen Flow Rate 06/26/25 11:01 06/26/25 11:05 06/26/25 11:06 Temperature 95.3 F L 96.4 F L Pulse Rate 67 67 Respiratory Rate 29 H 26 H Blood Pressure 112/45 L 116/46 L Pulse Oximetry 100 100 Oxygen Delivery Oxygen Flow Rate 06/26/25 11:11 06/26/25 11:15 06/26/25 11:21 Temperature 95.4 F L Pulse Rate 71 65 64 Respiratory Rate 22 H 23 H 21 H Blood Pressure 113/44 L 103/36 L Pulse Oximetry 100 99 99 Oxygen Delivery Oxygen Flow Rate 06/26/25 11:22 06/26/25 11:26 06/26/25 11:29 Temperature Pulse Rate 66 63 Respiratory Rate 19 23 H Blood Pressure 113/39 L Pulse Oximetry 99 100 96 Oxygen Delivery Nasal Cannula Oxygen Flow Rate 2 06/26/25 11:30 06/26/25 11:31 06/26/25 11:36 Temperature Pulse Rate 72 66 66 Respiratory Rate 21 H 22 H 20 Blood Pressure 112/44 L 123/42 L Pulse Oximetry 100 100 100 Oxygen Delivery Oxygen Flow Rate 06/26/25 11:37 06/26/25 11:41 06/26/25 11:45 Temperature Pulse Rate 73 69 68 Respiratory Rate 23 H 20 24 H Blood Pressure 127/44 L Pulse Oximetry 100 100 Oxygen Delivery Oxygen Flow Rate 06/26/25 11:46 06/26/25 11:51 06/26/25 11:56 Temperature Pulse Rate 66 66 66 Respiratory Rate 23 H 20 18 Blood Pressure 122/44 L 118/40 L 121/41 L Pulse Oximetry Oxygen Delivery Oxygen Flow Rate 06/26/25 11:57 06/26/25 12:15 06/26/25 12:16 Temperature Pulse Rate 66 64 64 Respiratory Rate 21 H 22 H 21 H Blood Pressure 119/42 L Pulse Oximetry 95 100 Oxygen Delivery Oxygen Flow Rate 06/26/25 12:36 06/26/25 12:37 06/26/25 12:41 Temperature Pulse Rate 63 62 62 Respiratory Rate 22 H 19 22 H Blood Pressure 119/44 L 118/41 L Pulse Oximetry 100 99 99 Oxygen Delivery Oxygen Flow Rate 06/26/25 12:45 06/26/25 12:46 06/26/25 12:51 Temperature Pulse Rate 61 61 61 Respiratory Rate 18 20 19 Blood Pressure 121/41 L 116/42 L Pulse Oximetry 99 99 100 Oxygen Delivery Oxygen Flow Rate 06/26/25 12:56 06/26/25 13:00 06/26/25 13:01 Temperature Pulse Rate 60 61 60 Respiratory Rate 21 H 21 H 18 Blood Pressure 115/44 L 122/45 L Pulse Oximetry 100 100 99 Oxygen Delivery Oxygen Flow Rate 06/26/25 13:11 06/26/25 13:15 06/26/25 13:27 Temperature Pulse Rate 67 68 60 Respiratory Rate 21 H 19 22 H Blood Pressure 118/46 L 94/78 L Pulse Oximetry 100 Oxygen Delivery Oxygen Flow Rate 06/26/25 13:30 06/26/25 13:35 06/26/25 13:40 Temperature Pulse Rate 59 L 59 L 60 Respiratory Rate 23 H 20 18 Blood Pressure 118/43 L 116/45 L 120/51 L Pulse Oximetry 100 97 98 Oxygen Delivery Oxygen Flow Rate 06/26/25 13:45 06/26/25 13:50 06/26/25 13:55 Temperature Pulse Rate 60 62 61 Respiratory Rate 22 H 21 H 25 H Blood Pressure 116/42 L 134/50 L 119/43 L Pulse Oximetry 99 98 98 Oxygen Delivery Oxygen Flow Rate 06/26/25 14:00 06/26/25 14:05 06/26/25 14:10 Temperature Pulse Rate 60 60 60 Respiratory Rate 22 H 22 H 22 H Blood Pressure 118/43 L 123/47 L 126/44 L Pulse Oximetry 96 96 96 Oxygen Delivery Oxygen Flow Rate 06/26/25 14:15 06/26/25 14:59 06/26/25 14:59 Temperature 95.0 F L 94.3 F L Pulse Rate 59 L 58 L 58 L Respiratory Rate 20 20 Blood Pressure 120/51 L 114/42 L 114/42 L Pulse Oximetry 97 96 Oxygen Delivery Oxygen Flow Rate 06/26/25 15:15 06/26/25 15:20 06/26/25 15:35 Temperature 94.9 F L 94.7 F L Pulse Rate 58 L Respiratory Rate 20 Blood Pressure 112/43 L Pulse Oximetry 96 Oxygen Delivery Oxygen Flow Rate 2 06/26/25 15:35 06/26/25 15:51 06/26/25 15:53 Temperature 94.9 F L 95.2 F L Pulse Rate 56 L 55 L Respiratory Rate 18 Blood Pressure 112/41 L 109/40 L Pulse Oximetry 96 Oxygen Delivery Oxygen Flow Rate 06/26/25 16:00 06/26/25 16:00 06/26/25 16:00 Temperature 95 F L Pulse Rate 58 L 58 L Respiratory Rate 19 Blood Pressure 108/43 L 108/53 L Pulse Oximetry 98 96 Oxygen Delivery Nasal Cannula Oxygen Flow Rate 2 06/26/25 16:00 06/26/25 16:00 06/26/25 16:15 Temperature Pulse Rate 57 L 55 L 58 L Respiratory Rate Blood Pressure 114/52 L 108/43 L Pulse Oximetry Oxygen Delivery Oxygen Flow Rate 06/26/25 16:30 06/26/25 16:45 06/26/25 16:50 Temperature 95.6 F L Pulse Rate 59 L 59 L Respiratory Rate Blood Pressure 101/47 L 96/41 L Pulse Oximetry Oxygen Delivery Oxygen Flow Rate 06/26/25 16:51 06/26/25 17:00 06/26/25 17:06 Temperature 95.6 F L 96.1 F L Pulse Rate 59 L Respiratory Rate Blood Pressure 95/41 L Pulse Oximetry Oxygen Delivery Oxygen Flow Rate 06/26/25 17:15 06/26/25 17:21 06/26/25 17:30 Temperature 96.2 F L Pulse Rate 60 64 Respiratory Rate Blood Pressure 98/43 L 97/44 L Pulse Oximetry Oxygen Delivery Oxygen Flow Rate 06/26/25 17:36 06/26/25 17:38 06/26/25 17:45 Temperature 96.4 F L Pulse Rate 64 67 Respiratory Rate Blood Pressure 97/44 L 103/43 L Pulse Oximetry Oxygen Delivery Oxygen Flow Rate 06/26/25 17:51 06/26/25 18:00 06/26/25 18:00 Temperature 97.5 F L Pulse Rate 69 70 Respiratory Rate Blood Pressure 92/47 L Pulse Oximetry Oxygen Delivery Oxygen Flow Rate 06/26/25 18:00 06/26/25 18:15 06/26/25 18:30 Temperature Pulse Rate 70 70 67 Respiratory Rate Blood Pressure 92/47 L 111/46 L 109/49 L Pulse Oximetry Oxygen Delivery Oxygen Flow Rate 06/26/25 18:45 06/26/25 18:52 06/26/25 18:54 Temperature Pulse Rate 63 77 Respiratory Rate Blood Pressure 101/52 L 101/52 L 98/46 L Pulse Oximetry Oxygen Delivery Oxygen Flow Rate 06/26/25 18:57 06/26/25 19:00 06/26/25 19:30 Temperature 97.7 F 97.6 F Pulse Rate 81 77 Respiratory Rate 18 Blood Pressure 89/67 L 140/47 L Pulse Oximetry 96 Oxygen Delivery Oxygen Flow Rate 06/26/25 19:38 06/26/25 19:45 06/26/25 20:00 Temperature Pulse Rate 72 71 70 Respiratory Rate Blood Pressure 140/47 L 122/44 L 114/43 L Pulse Oximetry Oxygen Delivery Oxygen Flow Rate 06/26/25 20:00 06/26/25 20:00 06/26/25 20:00 Temperature 98.2 F Pulse Rate 70 72 Respiratory Rate 26 H Blood Pressure 114/43 L Pulse Oximetry 97 97 Oxygen Delivery Nasal Cannula Oxygen Flow Rate 2 06/26/25 21:00 06/26/25 21:20 06/26/25 21:34 Temperature 97.7 F Pulse Rate 70 72 77 Respiratory Rate 21 H 22 H Blood Pressure 128/41 L 130/48 L 123/52 L Pulse Oximetry 97 100 Oxygen Delivery Oxygen Flow Rate 06/26/25 22:00 06/26/25 22:00 06/26/25 22:10 Temperature Pulse Rate 71 71 68 Respiratory Rate 29 H Blood Pressure 136/44 L 136/44 L Pulse Oximetry 100 Oxygen Delivery Oxygen Flow Rate 06/26/25 23:00 06/26/25 23:00 06/26/25 23:30 Temperature Pulse Rate 72 72 70 Respiratory Rate 21 H Blood Pressure 131/46 L 131/46 L 119/47 L Pulse Oximetry 100 Oxygen Delivery Oxygen Flow Rate 06/27/25 00:00 06/27/25 00:00 06/27/25 00:00 Temperature 99.2 F Pulse Rate 70 70 Respiratory Rate 18 Blood Pressure 132/45 L 132/45 L Pulse Oximetry 100 100 Oxygen Delivery Nasal Cannula Oxygen Flow Rate 2 06/27/25 00:00 06/27/25 00:30 06/27/25 01:00 Temperature Pulse Rate 67 68 70 Respiratory Rate 23 H Blood Pressure 124/46 L 117/49 L Pulse Oximetry 100 Oxygen Delivery Oxygen Flow Rate 06/27/25 02:00 06/27/25 02:00 06/27/25 02:00 Temperature Pulse Rate 69 69 69 Respiratory Rate 23 H Blood Pressure 133/48 L 133/48 L Pulse Oximetry 100 Oxygen Delivery Oxygen Flow Rate 06/27/25 03:00 06/27/25 03:00 06/27/25 04:00 Temperature 98.3 F Pulse Rate 66 66 65 Respiratory Rate 22 H Blood Pressure 135/48 L 135/48 L 140/48 L Pulse Oximetry 100 Oxygen Delivery Oxygen Flow Rate 06/27/25 04:00 06/27/25 04:00 06/27/25 04:00 Temperature Pulse Rate 65 67 Respiratory Rate 20 Blood Pressure 140/48 L Pulse Oximetry 100 99 Oxygen Delivery Nasal Cannula Oxygen Flow Rate 1 06/27/25 05:00 06/27/25 06:00 06/27/25 06:00 Temperature 97.6 F Pulse Rate 69 74 74 Respiratory Rate 19 19 Blood Pressure 115/38 L 119/42 L Pulse Oximetry 98 99 Oxygen Delivery Oxygen Flow Rate 06/27/25 07:00 06/27/25 07:52 06/27/25 08:00 Temperature 98.1 F Pulse Rate 85 75 78 Respiratory Rate 19 18 Blood Pressure 99/64 L 130/85 121/44 L Pulse Oximetry 96 91 Oxygen Delivery Oxygen Flow Rate Intake/Output Intake/Output: Intake & Output 06/24/25 06/25/25 06/26/25 06/27/25 23:59 23:59 23:59 23:59 Intake Total 737.5 600.1 Output Total 3000 0 Balance -2262.5 600.1 Meds/Results Medications: Active Medications Generic Name Dose Route Start Last Admin Trade Name Freq PRN Reason Stop Dose Admin Atorvastatin Calcium 40 mg 06/27/25 21:00 Atorvastatin 40 Mg Tablet PO HS [facility] Dextrose 12.5 gm 06/26/25 14:32 Dextrose 50% 25 Gm/50 Ml Syringe IV PUSH PRN PRN Hypoglycemia Protocol Folic Acid 1 mg 06/28/25 09:00 Folic Acid 1 Mg Tablet PO DAILY [facility] Glucagon 1 mg 06/26/25 14:32 Glucagon For Inj 1 Mg Vial IM PRN PRN Hypoglycemia Protocol Glucose 15 gm 06/26/25 14:32 Glucose Oral Gel 15 Gm Of Glucse In 37.5 Gm Tube PO PRN PRN Hypoglycemia Protocol Heparin Sodium (Porcine) 5,000 units 06/26/25 21:00 06/27/25 08:52 Heparin Sodium 5,000 Units/Ml Vial SUB-Q 5,000 units Q12HR [facility] Administration Norepinephrine Bitartrate 8 mg in 250 mls @ 1.875 mls/hr 06/26/25 09:46 06/27/25 07:52 Levophed 8 Mg/D5w 250 Ml IV CONT 06/27/25 09:45 1 mcg/min .Q24H STA 1.88 mls/hr Protocol Titration 1 MCG/MIN Cefepime HCl 1 gm/ Sodium 50 mls @ 100 mls/hr 06/27/25 09:00 06/27/25 08:52 Chloride IVPB 100 mls/hr DAILY [facility] Administration Doxycycline Hyclate 100 mg/ 100 mls @ 100 mls/hr 06/27/25 03:00 06/27/25 04:04 Sodium Chloride IVPB Infused Q12H [facility] Infusion Dextrose 1,000 mls @ 100 mls/hr 06/26/25 14:32 Dextrose 5% 1,000 Ml IVPB PRN PRN Hypoglycemia Protocol Albumin Human 100 mls @ 60 mls/hr 06/26/25 18:00 06/27/25 06:42 Albutein IVPB 06/27/25 13:39 60 mls/hr Q6HR [facility] Administration Albumin Human 50 mls @ 999 mls/hr 06/26/25 15:30 Albutein IVPB 06/27/25 15:29 Q10M PRN HYPOTENSION Metronidazole 500 mg in 100 mls @ 100 mls/hr 06/27/25 03:00 06/27/25 04:04 Flagyl 500 Mg/Iso Soln 100 Ml IVPB Infused Q8H [facility] Infusion Sodium Phosphate 20 mm/ 256.6667 mls @ 50 mls/hr 06/27/25 07:19 06/27/25 08:52 Dextrose IVPB 06/27/25 12:26 50 mls/hr ONCE ONE Administration Insulin Aspart 2 - 5 units 06/26/25 18:00 06/27/25 05:30 Insulin Aspart (*Bkc) 100 Units/Ml SUB-Q Not Given Q6HR [facility] Protocol Midodrine 10 mg 06/27/25 17:00 Midodrine Hcl 10 Mg Tablet PO BID [facility] Mirtazapine 15 mg 06/27/25 21:00 Mirtazapine 15 Mg Tablet PO HS [facility] Mirtazapine 7.5 mg 06/27/25 21:00 Mirtazapine 7.5 Mg Tablet PO HS [facility] Non-Formulary Medication 325 mg 06/28/25 09:00 Ferrous Sulfate PO 07/28/25 08:59 DAILY [facility] Non-Formulary Medication 200 mg 06/27/25 21:00 Gabapentin PO 07/27/25 20:59 HS [facility] Non-Formulary Medication 220 mg 06/28/25 09:00 Zinc Sulfate PO 07/28/25 08:59 DAILY [facility] Pantoprazole Sodium 40 mg 06/26/25 21:00 06/27/25 08:52 Pantoprazole Sodium Iv 40 Mg Vial IV PUSH 40 mg Q12HR [facility] Administration Senna/Docusate Sodium 1 tab 06/27/25 09:01 Senna/Docusate Sodium Tablet PO BID PRN Constipation Sertraline HCl 50 mg 06/28/25 09:00 Sertraline Hcl 50 Mg Tablet PO QAM [facility] Sevelamer Carbonate 800 mg 06/27/25 17:00 Sevelamer Carbonate 800 Mg Tablet PO DAILY@1700 [facility] Sodium Chloride 10 ml 06/26/25 14:00 06/27/25 06:00 Central Line Flush IV PUSH 10 ml Q8HR [facility] Administration Sodium Chloride 20 ml 06/26/25 11:46 Central Line Flush IV PUSH PRN PRN after blood draws Vancomycin HCl 1 each 06/26/25 09:56 Vancomycin For Acute Kidney Injury IVPB PRN PRN Vancomycin Protocol Radiology Results: ITS Impressions Abdomen/Pelvis CT 06/26/25 07:59 IMPRESSION: 1. Decubitus wounds. 2. No evidence of osteomyelitis. 3. No evidence of associated abscess. 4. No acute abnormality within abdomen or pelvis. Labs Labs: Laboratory Results - last 24 hr 06/26/25 06/26/25 06/26/25 09:08 14:48 15:20 WBC RBC Hgb Hct MCV MCH MCHC RDW Plt Count MPV Immature Gran % (Auto) Neut % (Auto) Lymph % (Auto) [place] % (Auto) Eos % (Auto) Baso % (Auto) Lymph # (Auto) [place] # (Auto) Eos # (Auto) Baso # (Auto) Abs Immat Gran (auto) Absolute Neuts (auto) Absolute Nucleated RBC Band Neutrophils % Nucleated RBC % Platelet Estimate Hypochromasia Anisocytosis Macrocytosis Schistocytes PT INR APTT Puncture Site ABG pH ABG pCO2 ABG pO2 ABG PO2/FiO2 Ratio ABG HCO3 ABG O2 Saturation ABG O2 Content ABG Base Excess A-a Gradient Oxyhemoglobin Carboxyhemoglobin Methemoglobin Reduced Hemoglobin Total Hemoglobin O2 Delivery Device O2 Liters/Min FiO2 Sodium Potassium Chloride Carbon Dioxide Anion Gap BUN Creatinine Estim Creat Clear Calc Estimated GFR Glucose POC Capillary Glucose 166 H 177 H Lactic Acid Calcium Phosphorus Magnesium Total Bilirubin AST ALT Alkaline Phosphatase Ammonia Total Protein Albumin Nasal MRSA (PCR) Not detected Random Vancomycin 06/26/25 06/26/25 06/26/25 17:14 18:56 21:19 WBC RBC Hgb Hct MCV MCH MCHC RDW Plt Count MPV Immature Gran % (Auto) Neut % (Auto) Lymph % (Auto) [place] % (Auto) Eos % (Auto) Baso % (Auto) Lymph # (Auto) [place] # (Auto) Eos # (Auto) Baso # (Auto) Abs Immat Gran (auto) Absolute Neuts (auto) Absolute Nucleated RBC Band Neutrophils % Nucleated RBC % Platelet Estimate Hypochromasia Anisocytosis Macrocytosis Schistocytes PT INR APTT Puncture Site ABG pH ABG pCO2 ABG pO2 ABG PO2/FiO2 Ratio ABG HCO3 ABG O2 Saturation ABG O2 Content ABG Base Excess A-a Gradient Oxyhemoglobin Carboxyhemoglobin Methemoglobin Reduced Hemoglobin Total Hemoglobin O2 Delivery Device O2 Liters/Min FiO2 Sodium Potassium Chloride Carbon Dioxide Anion Gap BUN Creatinine Estim Creat Clear Calc Estimated GFR Glucose POC Capillary Glucose 123 H Lactic Acid Calcium Phosphorus Magnesium Total Bilirubin AST ALT Alkaline Phosphatase Ammonia < 9 L Total Protein Albumin Nasal MRSA (PCR) Random Vancomycin 9.7 L 06/27/25 06/27/25 06/27/25 00:11 05:12 05:25 WBC 9.2 RBC 3.21 L Hgb 9.8 L Hct 32.3 L MCV 100.6 H MCH 30.5 MCHC 30.3 L RDW 18.2 H Plt Count 108 L MPV 10.0 Immature Gran % (Auto) 0.3 Neut % (Auto) 83.6 H Lymph % (Auto) 3.0 L [place] % (Auto) 11.7 H Eos % (Auto) 1.1 Baso % (Auto) 0.3 Lymph # (Auto) 0.28 L [place] # (Auto) 1.1 H Eos # (Auto) 0.1 Baso # (Auto) 0.0 Abs Immat Gran (auto) 0.03 Absolute Neuts (auto) 7.7 H Absolute Nucleated RBC 0.000 Band Neutrophils % Not Reportable Nucleated RBC % 0.0 Platelet Estimate Slightly decreased Hypochromasia 1+ Anisocytosis 1+ Macrocytosis 1+ Schistocytes None seen PT 22.7 H INR 2.0 APTT 46.2 H Puncture Site Left brachial ABG pH 7.461 H ABG pCO2 40.9 ABG pO2 80.6 ABG PO2/FiO2 Ratio 3.22 ABG HCO3 28.5 H ABG O2 Saturation 96.4 ABG O2 Content 14.2 L ABG Base Excess 4.3 A-a Gradient 49.1 Oxyhemoglobin 94.8 Carboxyhemoglobin 0.9 Methemoglobin 0.3 Reduced Hemoglobin 4.0 Total Hemoglobin 10.6 L O2 Delivery Device Nasal cannula O2 Liters/Min 1.0 FiO2 25 Sodium 137 Potassium 3.6 Chloride 98 Carbon Dioxide 31 H Anion Gap 8 BUN 15 D Creatinine 2.23 H Estim Creat Clear Calc Not Reportable Estimated GFR 30 L Glucose 118 H POC Capillary Glucose 123 H Lactic Acid 0.9 Calcium 8.1 L Phosphorus 2.4 L Magnesium 1.8 Total Bilirubin 1.0 AST 24 ALT 14 Alkaline Phosphatase 162 H Ammonia Total Protein 6.9 Albumin 3.1 L Nasal MRSA (PCR) Random Vancomycin 21.1 H 06/27/25 06:34 WBC RBC Hgb Hct MCV MCH MCHC RDW Plt Count MPV Immature Gran % (Auto) Neut % (Auto) Lymph % (Auto) [place] % (Auto) Eos % (Auto) Baso % (Auto) Lymph # (Auto) [place] # (Auto) Eos # (Auto) Baso # (Auto) Abs Immat Gran (auto) Absolute Neuts (auto) Absolute Nucleated RBC Band Neutrophils % Nucleated RBC % Platelet Estimate Hypochromasia Anisocytosis Macrocytosis Schistocytes PT INR APTT Puncture Site ABG pH ABG pCO2 ABG pO2 ABG PO2/FiO2 Ratio ABG HCO3 ABG O2 Saturation ABG O2 Content ABG Base Excess A-a Gradient Oxyhemoglobin Carboxyhemoglobin Methemoglobin Reduced Hemoglobin Total Hemoglobin O2 Delivery Device O2 Liters/Min FiO2 Sodium Potassium Chloride Carbon Dioxide Anion Gap BUN Creatinine Estim Creat Clear Calc Estimated GFR Glucose POC Capillary Glucose Lactic Acid Calcium Phosphorus Magnesium Total Bilirubin AST ALT Alkaline Phosphatase Ammonia < 9 L Total Protein Albumin Nasal MRSA (PCR) Random Vancomycin Quality VTE Prophylaxis VTE prophylaxis: pharmacologic ordered
--- NOTE | 2025-06-27 10:17 | PM.CNNEP ---
Assessment and Plan Assessment and plan (1) ESRD (end stage renal disease) on dialysis: Code(s): N18.6 - End stage renal disease; Z99.2 - Dependence on renal dialysis Status: Acute Assessment and Plan: The patient has end-stage renal disease. He gets dialysis 3 times a week on Wednesdays and Fridays. His kidney disease is from diabetes plus vascular disease. He used to have hypertension is well but this is not been a problem lately. As an outpatient is blood pressure has been somewhat soft for the last few months. He has been on midodrine 3 times a day and also takes 1 of them before dialysis and his blood pressure has been fairly well controlled and were able to maintain his fluid status. His labs are generally pretty good. Potassium is under reasonable control and his phosphorus level has been fairly good as well. His albumin level has been a little bit on the low side however. He did has not had much of an appetite lately. Fluid games have been moderate and we have been able to keep up with the weight gains between treatments. yesterday in the emergency room his chest x-ray did show excess fluid. Probably his dry weight needs to be lowered. It is possible he lost some real weight. He had fluid removed yesterday and will remove more fluid tomorrow. (2) Septic shock: Code(s): A41.9 - Sepsis, unspecified organism; R65.21 - Severe sepsis with septic shock Status: Acute Assessment and Plan: The patient had hypotension yesterday. He was placed on pressors. Blood cultures have been drawn and are pending. He is currently on cefepime doxycycline metronidazole and vancomycin. His mental status is better. His fever is down. His white count has improved. (3) Decubitus ulcer: Code(s): L89.90 - Pressure ulcer of unspecified site, unspecified stage Status: Acute Assessment and Plan: Patient has a pressure ulcer. Wound service has been consulted. Surgery has been consulted continue local care. (4) Anemia: Code(s): D64.9 - Anemia, unspecified Status: Chronic Assessment and Plan: The patient has anemia. Likely related to dialysis but also chronic disease would be playing a role as well especially with his wound. His hemoglobin is 9.8. Will give Epogen tomorrow. Because of his infection will hold off on iron studies (5) Thrombocytopenia: Code(s): D69.6 - Thrombocytopenia, unspecified Status: Acute Assessment and Plan: his platelet count is chronically low. (6) Type 2 diabetes mellitus: Qualifiers: Diabetes mellitus terminal operations supervisor insulin use: without terminal operations supervisor use Diabetes mellitus complication status: with kidney complications Diabetes mellitus complication detail: with chronic kidney disease Chronic kidney disease stage: on chronic dialysis Qualified Code(s): E11.22 - Type 2 diabetes mellitus with diabetic chronic kidney disease; N18.6 - End stage renal disease; Z99.2 - Dependence on renal dialysis Code(s): E11.9 - Type 2 diabetes mellitus without complications Status: Chronic Assessment and Plan: The patient has diabetes. He is on sliding scale insulin. Intensivists/ hospitalists to manage. (7) Hyperlipidemia: Code(s): E78.5 - Hyperlipidemia, unspecified Status: Acute Assessment and Plan: The patient has hyperlipidemia and vascular disease as well as coronary disease. He is on atorvastatin. (8) Fluid overload: Qualifiers: Hypervolemia type: other Qualified Code(s): E87.79 - Other fluid overload Code(s): E87.70 - Fluid overload, unspecified Status: Acute Assessment and Plan: Chest x-ray showed fluid. he did not have a whole lot of fluid removed on Saturday. He may need a lower dry weight. History of Present Illness Reason for Consult Consult date: 06/27/25 Chief Complaint Chief complaint: sepltic shock decub ulcer HD pt History of Present Illness Narrative: Kobi is a very pleasant 60-year-old gentleman who has multiple medical problems including end-stage renal disease on dialysis 3 times a week on Wednesdays and Fridays at [facility], diabetes, diabetic neuropathy,peripheral vascular disease status post bilateral [id number] amputations, hypertension, but recent hypotension, COPD, sleep apnea but does not use a CPAP, anemia, renal osteodystrophy, hyperlipidemia, systolic and diastolic congestive heart failure,coronary disease status post multiple stents and also bypass surgery a while back, transient postoperative atrial fibrillation, history of C diff, anxiety and depression. The patient has been battling a presacral wound for the past few weeks. This started out fairly small but apparently has grown. There is a wound team at the facility at which he resides and so has been getting some wound care. Unfortunate wound has grown worse in spite of that. Yesterday the patient became confused and feverish at the his facility and so they sent him to the ER. he was confused and poorly responsive. chest x-ray showed fluid overload. The patient was admitted. Central line was placed. He was placed on pressors. He underwent dialysis to remove fluid because the chest x-ray showed pulmonary edema. After few hours Patient's encephalopathy improved in this morning he seems back to his baseline mental status. He is understandably upset about the worsening wound. He has been through this before and it took a very long time for to get better. His code status is DNR. Review of Systems Constitutional: Constitutional: Reports no additional constitutional complaints Eyes: Eyes: Reports no additional eye complaints ENT: Reports system reviewed and no additional complaints, except as documented Cardiovascular: Cardiovascular: Reports no additional cardiovascular complaints Respiratory: Respiratory: Reports no additional respiratory complaints Gastrointestinal: Gastrointestinal: Reports no additional gastrointestinal complaints Genitourinary: Genitourinary: Reports no additional male genitourinary complaints Musculoskeletal: Musculoskeletal: Reports no additional musculoskeletal complaints Integumentary/Breasts: Skin/Breast: Reports system reviewed and no additional complaints, except as docu Neurologic: Reports system reviewed and no additional complaints, except as documented Psychiatric: Psychiatric: Reports no additional psychiatric complaints Endocrine: Endocrine: Reports no additional endocrine complaints [facility] Past Medical History Medical History COPD (chronic obstructive pulmonary disease) Intracardiac thrombus PVD (peripheral vascular disease) Iron deficiency anemia MRSA infection Clostridium difficile diarrhea Paroxysmal atrial fibrillation Transient atrial fibrillation following bypass surgery. Coronary artery disease History of multiple stents and 4 vessel bypass. Type 2 diabetes mellitus Hyperlipidemia End-stage renal disease on hemodialysis Combined systolic and diastolic congestive heart failure Anxiety and depression Obstructive sleep apnea does not use a CPAP Anemia of chronic disease Diabetic nephropathy Diabetic peripheral neuropathy Arthritis Surgical History Surgical History History of right below knee amputation History of five vessel coronary artery bypass (2018) [facility] History of cataract extraction with lens replacement History of coronary artery stent placement History of cardiac catheterization History of left below knee amputation History of amputation of toe left 5th toe 2013 small toe on the right amputated Family History Family History Sibling Patient's sister is Diabetes mellitus Sister Acute myocardial infarction Three brothers and 2 sisters History of blood clots Sister Abdominal aortic aneurysm Sister Dementia Brother COPD (chronic obstructive pulmonary disease) Brother Father Acute myocardial infarction, Onset Age: 65 Mother History of blood clots Hypertension, Onset Age: 80 Social History Social History Social History: Surrogate medical decision maker: Melodie Roca (niece) or Alejandra Murray (sister). Code status: DNR/DNI Smoking packs per day: 0.25 Smoking cigarettes per day: 5.0 Years smoked: 30 Smoking pack-years: 7.50 Smoking status: Former smoker Alcohol intake: never Drinks per week: 2 Alcohol use details: Social alcohol use. Substance use: never Substance use type: does not use Last use: 2019 Do You Feel Safe in your Home?: Yes Lack of Transportation: No Lack of Food: Never True Current Housing: I Have Housing Concerned About Future Housing: No Difficulty Paying Gas/Electric Bills: No Difficulty Paying for Meds: No Currently Unemployed: No Education: Don't Know Difficulty w/ Childcare or Family Care: No Additional living arrangements comments: [facility]. Additional occupation/education comments: Disabled. Spiritual care concerns: No Meds Home Medications and Allergies Home Medications ?Medication ?Instructions ?Recorded ?Confirmed ?Type ferrous sulfate 325 mg (65 mg 325 mg PO DAILY 06/01/20 06/26/25 History iron) tablet nitroglycerin 0.4 mg sublingual 0.4 mg sublingual Q5-15M PRN Chest 06/01/20 06/26/25 History tablet Pain atorvastatin 40 mg tablet (Lipitor) 40 mg PO HS 12/23/20 06/26/25 History folic acid 1 mg tablet 1 mg PO DAILY 12/23/20 06/26/25 History gabapentin 100 mg tablet 200 mg PO HS 12/23/20 06/26/25 History sevelamer carbonate 800 mg tablet 800 mg PO DAILY@1700 12/23/20 06/26/25 History tamsulosin 0.4 mg capsule (Flomax) 0.4 mg PO DAILY 12/23/20 06/26/25 History linagliptin 5 mg tablet (Tradjenta) 5 mg PO DAILY 01/13/23 06/26/25 History mirtazapine 15 mg tablet 15 mg PO HS 01/13/23 06/26/25 History sertraline 50 mg tablet 50 mg PO QAM 01/13/23 06/26/25 History midodrine 10 mg tablet 10 mg PO BID 09/17/23 06/26/25 History acetaminophen 325 mg tablet 650 mg PO Q6H PRN Pain (Scale 10/29/23 06/26/25 History (Tylenol) Score 1-3) naloxone 4 mg/actuation nasal spray 1 spray intranasal Q3M PRN Opioid 10/29/23 06/26/25 History Overdose sennosides 8.6 mg-docusate sodium 1 tablet PO BID PRN Constipation 10/29/23 06/26/25 History 50 mg tablet (Senna Plus) diphenoxylate-atropine 2.5 2 tablet PO TID PRN Diarrhea #15 03/06/24 06/26/25 Rx mg-0.025 mg tablet (Lomotil) tabs tramadol 50 mg tablet 50 mg PO Q4H PRN Pain (Scale Score 03/06/24 06/26/25 Rx 4-6) #15 tabs ascorbic acid (vitamin C) 500 mg 500 mg PO Q12H 03/10/25 06/26/25 History tablet famotidine 20 mg tablet 20 mg PO Q12H 03/10/25 06/26/25 History mirtazapine 7.5 mg tablet 7.5 mg PO HS 03/10/25 06/26/25 History tizanidine 2 mg tablet 2 mg PO Q12H 03/10/25 06/26/25 History vitamin B complex-vitamin C-folic 1 tablet PO DAILY 03/10/25 06/26/25 History acid 0.8 mg tablet (Nephro-[place]) zinc sulfate 220 mg capsule 220 mg PO DAILY 03/10/25 06/26/25 History aspirin 325 mg tablet,delayed 325 mg PO QAM #30 tabs 03/17/25 06/26/25 Rx release collagenase clostridium histo. 250 1 applic topical DAILY 06/26/25 06/26/25 History unit/gram topical ointment (Santyl) tizanidine 2 mg tablet 2 mg PO TID 06/26/25 06/26/25 History Allergies Allergy/AdvReac Type Severity Reaction Status Date / Time Penicillins Allergy Unknown Unknown Verified 06/26/25 18:17 bee venom protein (honey bee) Allergy Swelling Verified 06/26/25 18:17 Vital Signs Vital Signs - 24 hr 06/26/25 10:27 06/26/25 10:30 06/26/25 10:31 Temperature Pulse Rate 68 69 68 Respiratory Rate 17 28 H 12 Blood Pressure 98/59 L 132/39 L Pulse Oximetry Oxygen Delivery Oxygen Flow Rate 06/26/25 10:36 06/26/25 10:38 06/26/25 10:45 Temperature Pulse Rate 68 68 70 Respiratory Rate 23 H Blood Pressure 97/45 L 86/44 L Pulse Oximetry 98 Oxygen Delivery Oxygen Flow Rate 06/26/25 10:46 06/26/25 10:51 06/26/25 10:56 Temperature 96.4 F L Pulse Rate 70 67 Respiratory Rate 22 H 23 H 29 H Blood Pressure 125/44 L 122/46 L 114/45 L Pulse Oximetry Oxygen Delivery Oxygen Flow Rate 06/26/25 10:57 06/26/25 11:00 06/26/25 11:01 Temperature 95.3 F L Pulse Rate 66 67 67 Respiratory Rate 29 H 28 H 29 H Blood Pressure 112/45 L Pulse Oximetry 99 100 Oxygen Delivery Oxygen Flow Rate 06/26/25 11:05 06/26/25 11:06 06/26/25 11:11 Temperature 96.4 F L Pulse Rate 67 71 Respiratory Rate 26 H 22 H Blood Pressure 116/46 L 113/44 L Pulse Oximetry 100 100 Oxygen Delivery Oxygen Flow Rate 06/26/25 11:15 06/26/25 11:21 06/26/25 11:22 Temperature 95.4 F L Pulse Rate 65 64 66 Respiratory Rate 23 H 21 H 19 Blood Pressure 103/36 L Pulse Oximetry 99 99 99 Oxygen Delivery Oxygen Flow Rate 06/26/25 11:26 06/26/25 11:29 06/26/25 11:30 Temperature Pulse Rate 63 72 Respiratory Rate 23 H 21 H Blood Pressure 113/39 L Pulse Oximetry 100 96 100 Oxygen Delivery Nasal Cannula Oxygen Flow Rate 2 06/26/25 11:31 06/26/25 11:36 06/26/25 11:37 Temperature Pulse Rate 66 66 73 Respiratory Rate 22 H 20 23 H Blood Pressure 112/44 L 123/42 L Pulse Oximetry 100 100 100 Oxygen Delivery Oxygen Flow Rate 06/26/25 11:41 06/26/25 11:45 06/26/25 11:46 Temperature Pulse Rate 69 68 66 Respiratory Rate 20 24 H 23 H Blood Pressure 127/44 L 122/44 L Pulse Oximetry 100 Oxygen Delivery Oxygen Flow Rate 06/26/25 11:51 06/26/25 11:56 06/26/25 11:57 Temperature Pulse Rate 66 66 66 Respiratory Rate 20 18 21 H Blood Pressure 118/40 L 121/41 L Pulse Oximetry Oxygen Delivery Oxygen Flow Rate 06/26/25 12:15 06/26/25 12:16 06/26/25 12:36 Temperature Pulse Rate 64 64 63 Respiratory Rate 22 H 21 H 22 H Blood Pressure 119/42 L 119/44 L Pulse Oximetry 95 100 100 Oxygen Delivery Oxygen Flow Rate 06/26/25 12:37 06/26/25 12:41 06/26/25 12:45 Temperature Pulse Rate 62 62 61 Respiratory Rate 19 22 H 18 Blood Pressure 118/41 L Pulse Oximetry 99 99 99 Oxygen Delivery Oxygen Flow Rate 06/26/25 12:46 06/26/25 12:51 06/26/25 12:56 Temperature Pulse Rate 61 61 60 Respiratory Rate 20 19 21 H Blood Pressure 121/41 L 116/42 L 115/44 L Pulse Oximetry 99 100 100 Oxygen Delivery Oxygen Flow Rate 06/26/25 13:00 06/26/25 13:01 06/26/25 13:11 Temperature Pulse Rate 61 60 67 Respiratory Rate 21 H 18 21 H Blood Pressure 122/45 L 118/46 L Pulse Oximetry 100 99 Oxygen Delivery Oxygen Flow Rate 06/26/25 13:15 06/26/25 13:27 06/26/25 13:30 Temperature Pulse Rate 68 60 59 L Respiratory Rate 19 22 H 23 H Blood Pressure 94/78 L 118/43 L Pulse Oximetry 100 100 Oxygen Delivery Oxygen Flow Rate 06/26/25 13:35 06/26/25 13:40 06/26/25 13:45 Temperature Pulse Rate 59 L 60 60 Respiratory Rate 20 18 22 H Blood Pressure 116/45 L 120/51 L 116/42 L Pulse Oximetry 97 98 99 Oxygen Delivery Oxygen Flow Rate 06/26/25 13:50 06/26/25 13:55 06/26/25 14:00 Temperature Pulse Rate 62 61 60 Respiratory Rate 21 H 25 H 22 H Blood Pressure 134/50 L 119/43 L 118/43 L Pulse Oximetry 98 98 96 Oxygen Delivery Oxygen Flow Rate 06/26/25 14:05 06/26/25 14:10 06/26/25 14:15 Temperature 95.0 F L Pulse Rate 60 60 59 L Respiratory Rate 22 H 22 H 20 Blood Pressure 123/47 L 126/44 L 120/51 L Pulse Oximetry 96 96 97 Oxygen Delivery Oxygen Flow Rate 06/26/25 14:59 06/26/25 14:59 06/26/25 15:15 Temperature 94.3 F L 94.9 F L Pulse Rate 58 L 58 L 58 L Respiratory Rate 20 20 Blood Pressure 114/42 L 114/42 L 112/43 L Pulse Oximetry 96 96 Oxygen Delivery Oxygen Flow Rate 06/26/25 15:20 06/26/25 15:35 06/26/25 15:35 Temperature 94.7 F L 94.9 F L Pulse Rate 56 L Respiratory Rate 18 Blood Pressure 112/41 L Pulse Oximetry 96 Oxygen Delivery Oxygen Flow Rate 2 06/26/25 15:51 06/26/25 15:53 06/26/25 16:00 Temperature 95.2 F L 95 F L Pulse Rate 55 L 58 L Respiratory Rate 19 Blood Pressure 109/40 L 108/43 L Pulse Oximetry 98 Oxygen Delivery Oxygen Flow Rate 06/26/25 16:00 06/26/25 16:00 06/26/25 16:00 Temperature Pulse Rate 58 L 57 L Respiratory Rate Blood Pressure 108/53 L Pulse Oximetry 96 Oxygen Delivery Nasal Cannula Oxygen Flow Rate 2 06/26/25 16:00 06/26/25 16:15 06/26/25 16:30 Temperature Pulse Rate 55 L 58 L 59 L Respiratory Rate Blood Pressure 114/52 L 108/43 L 101/47 L Pulse Oximetry Oxygen Delivery Oxygen Flow Rate 06/26/25 16:45 06/26/25 16:50 06/26/25 16:51 Temperature 95.6 F L 95.6 F L Pulse Rate 59 L Respiratory Rate Blood Pressure 96/41 L Pulse Oximetry Oxygen Delivery Oxygen Flow Rate 06/26/25 17:00 06/26/25 17:06 06/26/25 17:15 Temperature 96.1 F L Pulse Rate 59 L 60 Respiratory Rate Blood Pressure 95/41 L 98/43 L Pulse Oximetry Oxygen Delivery Oxygen Flow Rate 06/26/25 17:21 06/26/25 17:30 06/26/25 17:36 Temperature 96.2 F L 96.4 F L Pulse Rate 64 Respiratory Rate Blood Pressure 97/44 L Pulse Oximetry Oxygen Delivery Oxygen Flow Rate 06/26/25 17:38 06/26/25 17:45 06/26/25 17:51 Temperature 97.5 F L Pulse Rate 64 67 Respiratory Rate Blood Pressure 97/44 L 103/43 L Pulse Oximetry Oxygen Delivery Oxygen Flow Rate 06/26/25 18:00 06/26/25 18:00 06/26/25 18:00 Temperature Pulse Rate 69 70 70 Respiratory Rate Blood Pressure 92/47 L 92/47 L Pulse Oximetry Oxygen Delivery Oxygen Flow Rate 06/26/25 18:15 06/26/25 18:30 06/26/25 18:45 Temperature Pulse Rate 70 67 63 Respiratory Rate Blood Pressure 111/46 L 109/49 L 101/52 L Pulse Oximetry Oxygen Delivery Oxygen Flow Rate 06/26/25 18:52 06/26/25 18:54 06/26/25 18:57 Temperature 97.7 F Pulse Rate 77 Respiratory Rate Blood Pressure 101/52 L 98/46 L Pulse Oximetry Oxygen Delivery Oxygen Flow Rate 06/26/25 19:00 06/26/25 19:30 06/26/25 19:38 Temperature 97.6 F Pulse Rate 81 77 72 Respiratory Rate 18 Blood Pressure 89/67 L 140/47 L 140/47 L Pulse Oximetry 96 Oxygen Delivery Oxygen Flow Rate 06/26/25 19:45 06/26/25 20:00 06/26/25 20:00 Temperature 98.2 F Pulse Rate 71 70 70 Respiratory Rate 26 H Blood Pressure 122/44 L 114/43 L 114/43 L Pulse Oximetry 97 Oxygen Delivery Oxygen Flow Rate 06/26/25 20:00 06/26/25 20:00 06/26/25 21:00 Temperature Pulse Rate 72 70 Respiratory Rate 21 H Blood Pressure 128/41 L Pulse Oximetry 97 97 Oxygen Delivery Nasal Cannula Oxygen Flow Rate 2 06/26/25 21:20 06/26/25 21:34 06/26/25 22:00 Temperature 97.7 F Pulse Rate 72 77 71 Respiratory Rate 22 H Blood Pressure 130/48 L 123/52 L Pulse Oximetry 100 Oxygen Delivery Oxygen Flow Rate 06/26/25 22:00 06/26/25 22:10 06/26/25 23:00 Temperature Pulse Rate 71 68 72 Respiratory Rate 29 H 21 H Blood Pressure 136/44 L 136/44 L 131/46 L Pulse Oximetry 100 100 Oxygen Delivery Oxygen Flow Rate 06/26/25 23:00 06/26/25 23:30 06/27/25 00:00 Temperature Pulse Rate 72 70 70 Respiratory Rate Blood Pressure 131/46 L 119/47 L 132/45 L Pulse Oximetry Oxygen Delivery Oxygen Flow Rate 06/27/25 00:00 06/27/25 00:00 06/27/25 00:00 Temperature 99.2 F Pulse Rate 70 67 Respiratory Rate 18 Blood Pressure 132/45 L Pulse Oximetry 100 100 Oxygen Delivery Nasal Cannula Oxygen Flow Rate 2 06/27/25 00:30 06/27/25 01:00 06/27/25 02:00 Temperature Pulse Rate 68 70 69 Respiratory Rate 23 H Blood Pressure 124/46 L 117/49 L 133/48 L Pulse Oximetry 100 Oxygen Delivery Oxygen Flow Rate 06/27/25 02:00 06/27/25 02:00 06/27/25 03:00 Temperature Pulse Rate 69 69 66 Respiratory Rate 23 H Blood Pressure 133/48 L 135/48 L Pulse Oximetry 100 Oxygen Delivery Oxygen Flow Rate 06/27/25 03:00 06/27/25 04:00 06/27/25 04:00 Temperature 98.3 F Pulse Rate 66 65 65 Respiratory Rate 22 H 20 Blood Pressure 135/48 L 140/48 L 140/48 L Pulse Oximetry 100 100 Oxygen Delivery Oxygen Flow Rate 06/27/25 04:00 06/27/25 04:00 06/27/25 05:00 Temperature 97.6 F Pulse Rate 67 69 Respiratory Rate 19 Blood Pressure 115/38 L Pulse Oximetry 99 98 Oxygen Delivery Nasal Cannula Oxygen Flow Rate 1 06/27/25 06:00 06/27/25 06:00 06/27/25 07:00 Temperature Pulse Rate 74 74 85 Respiratory Rate 19 19 Blood Pressure 119/42 L 99/64 L Pulse Oximetry 99 96 Oxygen Delivery Oxygen Flow Rate 06/27/25 07:52 06/27/25 08:00 06/27/25 08:00 Temperature 98.1 F Pulse Rate 75 78 Respiratory Rate 18 Blood Pressure 130/85 121/44 L Pulse Oximetry 91 95 Oxygen Delivery Room Air Oxygen Flow Rate 06/27/25 08:00 06/27/25 09:00 06/27/25 09:17 Temperature Pulse Rate 73 75 79 Respiratory Rate 22 H Blood Pressure 118/59 L 118/59 L Pulse Oximetry 91 Oxygen Delivery Oxygen Flow Rate Exam Narrative: Exam Narrative: Well developed well-nourished in no acute distress Skin is warm and dry without rash Head normocephalic atraumatic Eyes normal sclerae and conjunctivae Mouth normal lips teeth and gums Neck no nodes no thyromegaly no carotid bruits Axillae no nodes Back no CVA tenderness Lungs symmetric and clear to auscultation and percussion Heart regular rate and rhythm without rub or gallop Abdomen bowel sounds positive soft nontender, no HSM, masses, or bruits. Extremities no cyanosis, clubbing, or edema Pulses 2+ equal in radial arteries Psychological not anxious or depressed Neuro alert and oriented x3 motor 5/5 cranial nerves 2-12 intact reflexes 2+ and equal in the biceps and patellar tendons cerebellar normal rapid alternating movements Results Lab Results 06/27/25 05:12 06/27/25 05:12 Lab results: Most recent lab results ABG pH 7.461 (7.350-7.450) H 06/27/25 05:25 ABG pCO2 40.9 mmHg (35.0-45.0) 06/27/25 05:25 ABG pO2 80.6 mmHg (80.0-100.0) 06/27/25 05:25 ABG HCO3 28.5 mEq/l (22.0-26.0) H 06/27/25 05:25 ABG O2 Saturation 96.4 % (95.0-100.0) 06/27/25 05:25 Calcium 8.1 mg/dL (8.4-10.2) L 06/27/25 05:12 Phosphorus 2.4 mg/dL (2.5-4.5) L 06/27/25 05:12 Magnesium 1.8 mg/dL (1.6-2.3) 06/27/25 05:12
--- NOTE | 2025-06-27 10:26 | PM.CNGS ---
Assessment and Plan Assessment and plan (1) Decubitus ulcer: Qualifiers: Pressure injury location: sacral region Pressure injury stage: stage 4 Qualified Code(s): L89.154 - Pressure ulcer of sacral region, stage 4 <Jones E. Tello, DO - Last Filed: 06/27/25 12:27> Code(s): L89.90 - Pressure ulcer of unspecified site, unspecified stage <Jones E. Tello, DO - Last Filed: 06/27/25 12:27> Status: Acute <Jones E. Tello, DO - Last Filed: 06/27/25 12:27> Assessment and Plan: Chronic sacral ulcer appears infected and will need debridement of necrotic tissue. Will start Dakin's dressing changes BID. Plan for possible debridement in OR tomorrow. <Jeremias Little, DO - Last Filed: 06/27/25 12:40> (2) Septic shock: Code(s): A41.9 - Sepsis, unspecified organism; R65.21 - Severe sepsis with septic shock <Jones E. Tello, DO - Last Filed: 06/27/25 12:27> Status: Acute <Jones E. Tello, DO - Last Filed: 06/27/25 12:27> (3) Shock: Code(s): R57.9 - Shock, unspecified <Jones E. Tello, DO - Last Filed: 06/27/25 12:27> Status: Acute <Jones E. Tello, DO - Last Filed: 06/27/25 12:27> (4) Acute hypoxemic respiratory failure: Code(s): J96.01 - Acute respiratory failure with hypoxia <Jones E. Tello, DO - Last Filed: 06/27/25 12:27> Status: Acute <Jones E. Tello, DO - Last Filed: 06/27/25 12:27> (5) Fluid overload: Qualifiers: Hypervolemia type: other Qualified Code(s): E87.79 - Other fluid overload <Jones E. Tello, DO - Last Filed: 06/27/25 12:27> Code(s): E87.70 - Fluid overload, unspecified <Jones E. Tello, DO - Last Filed: 06/27/25 12:27> Status: Acute <Jones E. Tello, DO - Last Filed: 06/27/25 12:27> (6) Respiratory failure: Qualifiers: Chronicity: acute Respiratory failure complication: hypoxia Qualified Code(s): J96.01 - Acute respiratory failure with hypoxia <Jones E. Tello, DO - Last Filed: 06/27/25 12:27> Code(s): J96.90 - Respiratory failure, unspecified, unspecified whether with hypoxia or hypercapnia <Jones E. Tello, DO - Last Filed: 06/27/25 12:27> Status: Acute <Jones E. Tello, DO - Last Filed: 06/27/25 12:27> (7) Pulmonary edema: Qualifiers: Chronicity: acute Qualified Code(s): J81.0 - Acute pulmonary edema <Jones E. Tello, DO - Last Filed: 06/27/25 12:27> Code(s): J81.1 - Chronic pulmonary edema <Jones E. Tello, DO - Last Filed: 06/27/25 12:27> Status: Acute <Jones E. Tello, DO - Last Filed: 06/27/25 12:27> Assessment and Plan: General surgery consulted to evaluate decubitus ulcer. On initial presentation, patient did appear septic vs CHF exacerbation, likely combination of both. Patient's clinical status has improved with plans to wean off of Levophed and restart the patient's home midodrine. Leukocytosis is improving. Patient does have a significant amount of drainage from his sacral decubitus ulcer as well as necrotic tissue that is sloughing. I discussed with the patient that he would likely require surgical debridement. I discussed that in order to heal this wound, the patient will need routine offloading, he may require further surgical interventions, possible wound VAC therapy, and prolonged wound care. I discussed that in some instances if the patient does continue to have a chronic wound that becomes infected secondary to stooling that some patients ultimately require stool diversion. the patient was awake, alert, and oriented during our discussion. He expressed understanding and all questions were answered. He agrees that he would like to undergo surgical intervention if indicated. Plan - will likely require surgical debridement of decubitus ulcer, timing TBD - continue resuscitation and ICU cares - continue IV ABX - Wound care consult, start Dakin's moistened kerlix on wound - remainder cares per primary team and consultants - surgery will follow A&P discussed with Dr. Little <Jones Tello, DO - Last Filed: 06/27/25 12:27> History of Present Illness Consult details Consult date: 06/27/25 <Jones Tello, DO - Last Filed: 06/27/25 12:27> 06/27/25 <Jeremias Little, DO - Last Filed: 06/27/25 12:40> Reason for consult: wound care <Jeremias Little, DO - Last Filed: 06/27/25 12:40> Requesting physician: Yuriy Sarkar MD <Jeremias Little, DO - Last Filed: 06/27/25 12:40> Narrative: Patient is a 60 y/o M with a PMH of iron deficiency anemia/anemia of chronic disease, pAFib, coronary artery disease s/p multiple stents and CABG, diabetes, ESRD on HD, CHF, and RISA who presented with altered mental status and fever on 06/26. The patient was seen in the emergency department on 06/25 for AMS and was discharged home from the ED after his AMS improved. He presented back to the emergency department on 06/26 after having worseing AMS as well as a fever. The patient was initially evaluated in the emergency department on 06/26 by the General surgery team, however there were plans to transfer the patient to [place] should he need CRRT, however the patient's clinical status improved and he was able to undergo HD without issue here. On my initial evaluation yesterday, the patient did have severe AMS with a GCS E4 V1 M6, today he is a GCS 15 and does appear significantly improved clinically. The patient reports that he has had a decubitus ulcer for approximately the past 2 weeks that he has been receiving wound care for at his facility. He is unsure at what point the ulcer became necrotic and infected appearing. He is not ambulatory, he has had bilateral BKAs, he does report either sitting or laying for the majority of his day. when evaluated in the emergency department, the patient was hypotensive and he was started on Levophed, he had a leukocytosis with a WBC of 13.3, his BNP was >30,000, creatinine 2.76. Today his WBC is 9.2, he was able to dialyze and his creatinine is 2.23. He did have a chest x-ray today that is pending final read, but does appear to have worsening pulmonary edema. He has received albumin and Levophed for blood pressure support, the patient does take midodrine at baseline, today there were discussions of discontinuing Levophed and restarting the patient's midodrine. On exam, the patient does have a significant amount of discharge from his sacral decubitus ulcer on the Mepilex border dressing. The ulcer does extend down to bone. There is a necrotic base and necrotic tissue with approximately 2 cm of tunneling on the cephalad portion wound. He has surrounding erythema, which he does report tenderness to palpation. The wound does appear grossly necrotic and infected , however the patient's clinical status has improved significantly from yesterday. the patient does report that if needed, he would want surgical intervention. <Jones Tello, DO - Last Filed: 06/27/25 12:27> Review of Systems Review of Systems: 12 Point ROS negative except HPI <Jones Tello, DO - Last Filed: 06/27/25 12:27> [facility] Past Medical History Medical History: Medical History COPD (chronic obstructive pulmonary disease) Intracardiac thrombus PVD (peripheral vascular disease) Iron deficiency anemia MRSA infection Clostridium difficile diarrhea Paroxysmal atrial fibrillation Transient atrial fibrillation following bypass surgery. Coronary artery disease History of multiple stents and 4 vessel bypass. Type 2 diabetes mellitus Hyperlipidemia End-stage renal disease on hemodialysis Combined systolic and diastolic congestive heart failure Anxiety and depression Obstructive sleep apnea does not use a CPAP Anemia of chronic disease Diabetic nephropathy Diabetic peripheral neuropathy Arthritis <Jones Tello, DO - Last Filed: 06/27/25 12:27> Surgical History Surgical History: Surgical History History of right below knee amputation History of five vessel coronary artery bypass (2018) [facility] History of cataract extraction with lens replacement History of coronary artery stent placement History of cardiac catheterization History of left below knee amputation History of amputation of toe left 5th toe 2012 small toe on the right amputated <Jones Tello, DO - Last Filed: 06/27/25 12:27> Family History Family History: Family History Sibling Patient's sister is Diabetes mellitus Sister Acute myocardial infarction Three brothers and 2 sisters History of blood clots Sister Abdominal aortic aneurysm Sister Dementia Brother COPD (chronic obstructive pulmonary disease) Brother Father Acute myocardial infarction, Onset Age: 65 Mother History of blood clots Hypertension, Onset Age: 80 <Jones Tello DO - Last Filed: 06/27/25 12:27> Social History Social History: Social History Social History: Surrogate medical decision maker: Melodie Roca (niece) or Alejandrajame Murray (sister). Code status: DNR/DNI Smoking packs per day: 0.25 Smoking cigarettes per day: 5.0 Years smoked: 30 Smoking pack-years: 7.50 Smoking status: Former smoker Alcohol intake: never Drinks per week: 2 Alcohol use details: Social alcohol use. Substance use: never Substance use type: does not use Last use: 2019 Do You Feel Safe in your Home?: Yes Lack of Transportation: No Lack of Food: Never True Current Housing: I Have Housing Concerned About Future Housing: No Difficulty Paying Gas/Electric Bills: No Difficulty Paying for Meds: No Currently Unemployed: No Education: Don't Know Difficulty w/ Childcare or Family Care: No Additional living arrangements comments: [facility]. Additional occupation/education comments: Disabled. Spiritual care concerns: No <Jones Tello DO - Last Filed: 06/27/25 12:27> Meds Home Medications and Allergies Home medications: Home Medications ?Medication ?Instructions ?Recorded ?Confirmed ?Type ferrous sulfate 325 mg (65 mg 325 mg PO DAILY 06/01/20 06/26/25 History iron) tablet nitroglycerin 0.4 mg sublingual 0.4 mg sublingual Q5-15M PRN Chest 06/01/20 06/26/25 History tablet Pain atorvastatin 40 mg tablet (Lipitor) 40 mg PO HS 12/23/20 06/26/25 History folic acid 1 mg tablet 1 mg PO DAILY 12/23/20 06/26/25 History gabapentin 100 mg tablet 200 mg PO HS 12/23/20 06/26/25 History sevelamer carbonate 800 mg tablet 800 mg PO DAILY@1700 12/23/20 06/26/25 History tamsulosin 0.4 mg capsule (Flomax) 0.4 mg PO DAILY 12/23/20 06/26/25 History linagliptin 5 mg tablet (Tradjenta) 5 mg PO DAILY 01/13/23 06/26/25 History mirtazapine 15 mg tablet 15 mg PO HS 01/13/23 06/26/25 History sertraline 50 mg tablet 50 mg PO QAM 01/13/23 06/26/25 History midodrine 10 mg tablet 10 mg PO BID 09/17/23 06/26/25 History acetaminophen 325 mg tablet 650 mg PO Q6H PRN Pain (Scale 10/29/23 06/26/25 History (Tylenol) Score 1-3) naloxone 4 mg/actuation nasal spray 1 spray intranasal Q3M PRN Opioid 10/29/23 06/26/25 History Overdose sennosides 8.6 mg-docusate sodium 1 tablet PO BID PRN Constipation 10/29/23 06/26/25 History 50 mg tablet (Senna Plus) diphenoxylate-atropine 2.5 2 tablet PO TID PRN Diarrhea #15 03/06/24 06/26/25 Rx mg-0.025 mg tablet (Lomotil) tabs tramadol 50 mg tablet 50 mg PO Q4H PRN Pain (Scale Score 03/06/24 06/26/25 Rx 4-6) #15 tabs ascorbic acid (vitamin C) 500 mg 500 mg PO Q12H 03/10/25 06/26/25 History tablet famotidine 20 mg tablet 20 mg PO Q12H 03/10/25 06/26/25 History mirtazapine 7.5 mg tablet 7.5 mg PO HS 03/10/25 06/26/25 History tizanidine 2 mg tablet 2 mg PO Q12H 03/10/25 06/26/25 History vitamin B complex-vitamin C-folic 1 tablet PO DAILY 03/10/25 06/26/25 History acid 0.8 mg tablet (Nephro-[place]) zinc sulfate 220 mg capsule 220 mg PO DAILY 03/10/25 06/26/25 History aspirin 325 mg tablet,delayed 325 mg PO QAM #30 tabs 03/17/25 06/26/25 Rx release collagenase clostridium histo. 250 1 applic topical DAILY 06/26/25 06/26/25 History unit/gram topical ointment (Santyl) tizanidine 2 mg tablet 2 mg PO TID 06/26/25 06/26/25 History <Jones E. Tello, DO - Last Filed: 06/27/25 12:27> Allergies/Adverse reactions: Allergies Allergy/AdvReac Type Severity Reaction Status Date / Time Penicillins Allergy Unknown Unknown Verified 06/26/25 18:17 bee venom protein (honey bee) Allergy Swelling Verified 06/26/25 18:17 <Jones E. Tello, DO - Last Filed: 06/27/25 12:27> Vital Signs Vital Signs - 24 hr 06/26/25 10:27 06/26/25 10:30 06/26/25 10:31 Temperature Pulse Rate 68 69 68 Respiratory Rate 17 28 H 12 Blood Pressure 98/59 L 132/39 L Pulse Oximetry Oxygen Delivery Oxygen Flow Rate 06/26/25 10:36 06/26/25 10:38 06/26/25 10:45 Temperature Pulse Rate 68 68 70 Respiratory Rate 23 H Blood Pressure 97/45 L 86/44 L Pulse Oximetry 98 Oxygen Delivery Oxygen Flow Rate 06/26/25 10:46 06/26/25 10:51 06/26/25 10:56 Temperature 96.4 F L Pulse Rate 70 67 Respiratory Rate 22 H 23 H 29 H Blood Pressure 125/44 L 122/46 L 114/45 L Pulse Oximetry Oxygen Delivery Oxygen Flow Rate 06/26/25 10:57 06/26/25 11:00 06/26/25 11:01 Temperature 95.3 F L Pulse Rate 66 67 67 Respiratory Rate 29 H 28 H 29 H Blood Pressure 112/45 L Pulse Oximetry 99 100 Oxygen Delivery Oxygen Flow Rate 06/26/25 11:05 06/26/25 11:06 06/26/25 11:11 Temperature 96.4 F L Pulse Rate 67 71 Respiratory Rate 26 H 22 H Blood Pressure 116/46 L 113/44 L Pulse Oximetry 100 100 Oxygen Delivery Oxygen Flow Rate 06/26/25 11:15 06/26/25 11:21 06/26/25 11:22 Temperature 95.4 F L Pulse Rate 65 64 66 Respiratory Rate 23 H 21 H 19 Blood Pressure 103/36 L Pulse Oximetry 99 99 99 Oxygen Delivery Oxygen Flow Rate 06/26/25 11:26 06/26/25 11:29 06/26/25 11:30 Temperature Pulse Rate 63 72 Respiratory Rate 23 H 21 H Blood Pressure 113/39 L Pulse Oximetry 100 96 100 Oxygen Delivery Nasal Cannula Oxygen Flow Rate 2 06/26/25 11:31 06/26/25 11:36 06/26/25 11:37 Temperature Pulse Rate 66 66 73 Respiratory Rate 22 H 20 23 H Blood Pressure 112/44 L 123/42 L Pulse Oximetry 100 100 100 Oxygen Delivery Oxygen Flow Rate 06/26/25 11:41 06/26/25 11:45 06/26/25 11:46 Temperature Pulse Rate 69 68 66 Respiratory Rate 20 24 H 23 H Blood Pressure 127/44 L 122/44 L Pulse Oximetry 100 Oxygen Delivery Oxygen Flow Rate 06/26/25 11:51 06/26/25 11:56 06/26/25 11:57 Temperature Pulse Rate 66 66 66 Respiratory Rate 20 18 21 H Blood Pressure 118/40 L 121/41 L Pulse Oximetry Oxygen Delivery Oxygen Flow Rate 06/26/25 12:15 06/26/25 12:16 06/26/25 12:36 Temperature Pulse Rate 64 64 63 Respiratory Rate 22 H 21 H 22 H Blood Pressure 119/42 L 119/44 L Pulse Oximetry 95 100 100 Oxygen Delivery Oxygen Flow Rate 06/26/25 12:37 06/26/25 12:41 06/26/25 12:45 Temperature Pulse Rate 62 62 61 Respiratory Rate 19 22 H 18 Blood Pressure 118/41 L Pulse Oximetry 99 99 99 Oxygen Delivery Oxygen Flow Rate 06/26/25 12:46 06/26/25 12:51 06/26/25 12:56 Temperature Pulse Rate 61 61 60 Respiratory Rate 20 19 21 H Blood Pressure 121/41 L 116/42 L 115/44 L Pulse Oximetry 99 100 100 Oxygen Delivery Oxygen Flow Rate 06/26/25 13:00 06/26/25 13:01 06/26/25 13:11 Temperature Pulse Rate 61 60 67 Respiratory Rate 21 H 18 21 H Blood Pressure 122/45 L 118/46 L Pulse Oximetry 100 99 Oxygen Delivery Oxygen Flow Rate 06/26/25 13:15 06/26/25 13:27 06/26/25 13:30 Temperature Pulse Rate 68 60 59 L Respiratory Rate 19 22 H 23 H Blood Pressure 94/78 L 118/43 L Pulse Oximetry 100 100 Oxygen Delivery Oxygen Flow Rate 06/26/25 13:35 06/26/25 13:40 06/26/25 13:45 Temperature Pulse Rate 59 L 60 60 Respiratory Rate 20 18 22 H Blood Pressure 116/45 L 120/51 L 116/42 L Pulse Oximetry 97 98 99 Oxygen Delivery Oxygen Flow Rate 06/26/25 13:50 06/26/25 13:55 06/26/25 14:00 Temperature Pulse Rate 62 61 60 Respiratory Rate 21 H 25 H 22 H Blood Pressure 134/50 L 119/43 L 118/43 L Pulse Oximetry 98 98 96 Oxygen Delivery Oxygen Flow Rate 06/26/25 14:05 06/26/25 14:10 06/26/25 14:15 Temperature 95.0 F L Pulse Rate 60 60 59 L Respiratory Rate 22 H 22 H 20 Blood Pressure 123/47 L 126/44 L 120/51 L Pulse Oximetry 96 96 97 Oxygen Delivery Oxygen Flow Rate 06/26/25 14:59 06/26/25 14:59 06/26/25 15:15 Temperature 94.3 F L 94.9 F L Pulse Rate 58 L 58 L 58 L Respiratory Rate 20 20 Blood Pressure 114/42 L 114/42 L 112/43 L Pulse Oximetry 96 96 Oxygen Delivery Oxygen Flow Rate 06/26/25 15:20 06/26/25 15:35 06/26/25 15:35 Temperature 94.7 F L 94.9 F L Pulse Rate 56 L Respiratory Rate 18 Blood Pressure 112/41 L Pulse Oximetry 96 Oxygen Delivery Oxygen Flow Rate 2 06/26/25 15:51 06/26/25 15:53 06/26/25 16:00 Temperature 95.2 F L 95 F L Pulse Rate 55 L 58 L Respiratory Rate 19 Blood Pressure 109/40 L 108/43 L Pulse Oximetry 98 Oxygen Delivery Oxygen Flow Rate 06/26/25 16:00 06/26/25 16:00 06/26/25 16:00 Temperature Pulse Rate 58 L 57 L Respiratory Rate Blood Pressure 108/53 L Pulse Oximetry 96 Oxygen Delivery Nasal Cannula Oxygen Flow Rate 2 06/26/25 16:00 06/26/25 16:15 06/26/25 16:30 Temperature Pulse Rate 55 L 58 L 59 L Respiratory Rate Blood Pressure 114/52 L 108/43 L 101/47 L Pulse Oximetry Oxygen Delivery Oxygen Flow Rate 06/26/25 16:45 06/26/25 16:50 06/26/25 16:51 Temperature 95.6 F L 95.6 F L Pulse Rate 59 L Respiratory Rate Blood Pressure 96/41 L Pulse Oximetry Oxygen Delivery Oxygen Flow Rate 06/26/25 17:00 06/26/25 17:06 06/26/25 17:15 Temperature 96.1 F L Pulse Rate 59 L 60 Respiratory Rate Blood Pressure 95/41 L 98/43 L Pulse Oximetry Oxygen Delivery Oxygen Flow Rate 06/26/25 17:21 06/26/25 17:30 06/26/25 17:36 Temperature 96.2 F L 96.4 F L Pulse Rate 64 Respiratory Rate Blood Pressure 97/44 L Pulse Oximetry Oxygen Delivery Oxygen Flow Rate 06/26/25 17:38 06/26/25 17:45 06/26/25 17:51 Temperature 97.5 F L Pulse Rate 64 67 Respiratory Rate Blood Pressure 97/44 L 103/43 L Pulse Oximetry Oxygen Delivery Oxygen Flow Rate 06/26/25 18:00 06/26/25 18:00 06/26/25 18:00 Temperature Pulse Rate 69 70 70 Respiratory Rate Blood Pressure 92/47 L 92/47 L Pulse Oximetry Oxygen Delivery Oxygen Flow Rate 06/26/25 18:15 06/26/25 18:30 06/26/25 18:45 Temperature Pulse Rate 70 67 63 Respiratory Rate Blood Pressure 111/46 L 109/49 L 101/52 L Pulse Oximetry Oxygen Delivery Oxygen Flow Rate 06/26/25 18:52 06/26/25 18:54 06/26/25 18:57 Temperature 97.7 F Pulse Rate 77 Respiratory Rate Blood Pressure 101/52 L 98/46 L Pulse Oximetry Oxygen Delivery Oxygen Flow Rate 06/26/25 19:00 06/26/25 19:30 06/26/25 19:38 Temperature 97.6 F Pulse Rate 81 77 72 Respiratory Rate 18 Blood Pressure 89/67 L 140/47 L 140/47 L Pulse Oximetry 96 Oxygen Delivery Oxygen Flow Rate 06/26/25 19:45 06/26/25 20:00 06/26/25 20:00 Temperature 98.2 F Pulse Rate 71 70 70 Respiratory Rate 26 H Blood Pressure 122/44 L 114/43 L 114/43 L Pulse Oximetry 97 Oxygen Delivery Oxygen Flow Rate 06/26/25 20:00 06/26/25 20:00 06/26/25 21:00 Temperature Pulse Rate 72 70 Respiratory Rate 21 H Blood Pressure 128/41 L Pulse Oximetry 97 97 Oxygen Delivery Nasal Cannula Oxygen Flow Rate 2 06/26/25 21:20 06/26/25 21:34 06/26/25 22:00 Temperature 97.7 F Pulse Rate 72 77 71 Respiratory Rate 22 H Blood Pressure 130/48 L 123/52 L Pulse Oximetry 100 Oxygen Delivery Oxygen Flow Rate 06/26/25 22:00 06/26/25 22:10 06/26/25 23:00 Temperature Pulse Rate 71 68 72 Respiratory Rate 29 H 21 H Blood Pressure 136/44 L 136/44 L 131/46 L Pulse Oximetry 100 100 Oxygen Delivery Oxygen Flow Rate 06/26/25 23:00 06/26/25 23:30 06/27/25 00:00 Temperature Pulse Rate 72 70 70 Respiratory Rate Blood Pressure 131/46 L 119/47 L 132/45 L Pulse Oximetry Oxygen Delivery Oxygen Flow Rate 06/27/25 00:00 06/27/25 00:00 06/27/25 00:00 Temperature 99.2 F Pulse Rate 70 67 Respiratory Rate 18 Blood Pressure 132/45 L Pulse Oximetry 100 100 Oxygen Delivery Nasal Cannula Oxygen Flow Rate 2 06/27/25 00:30 06/27/25 01:00 06/27/25 02:00 Temperature Pulse Rate 68 70 69 Respiratory Rate 23 H Blood Pressure 124/46 L 117/49 L 133/48 L Pulse Oximetry 100 Oxygen Delivery Oxygen Flow Rate 06/27/25 02:00 06/27/25 02:00 06/27/25 03:00 Temperature Pulse Rate 69 69 66 Respiratory Rate 23 H Blood Pressure 133/48 L 135/48 L Pulse Oximetry 100 Oxygen Delivery Oxygen Flow Rate 06/27/25 03:00 06/27/25 04:00 06/27/25 04:00 Temperature 98.3 F Pulse Rate 66 65 65 Respiratory Rate 22 H 20 Blood Pressure 135/48 L 140/48 L 140/48 L Pulse Oximetry 100 100 Oxygen Delivery Oxygen Flow Rate 06/27/25 04:00 06/27/25 04:00 06/27/25 05:00 Temperature 97.6 F Pulse Rate 67 69 Respiratory Rate 19 Blood Pressure 115/38 L Pulse Oximetry 99 98 Oxygen Delivery Nasal Cannula Oxygen Flow Rate 1 06/27/25 06:00 06/27/25 06:00 06/27/25 07:00 Temperature Pulse Rate 74 74 85 Respiratory Rate 19 19 Blood Pressure 119/42 L 99/64 L Pulse Oximetry 99 96 Oxygen Delivery Oxygen Flow Rate 06/27/25 07:52 06/27/25 08:00 06/27/25 08:00 Temperature 98.1 F Pulse Rate 75 78 Respiratory Rate 18 Blood Pressure 130/85 121/44 L Pulse Oximetry 91 95 Oxygen Delivery Room Air Oxygen Flow Rate 06/27/25 08:00 06/27/25 09:00 06/27/25 09:17 Temperature Pulse Rate 73 75 79 Respiratory Rate 22 H Blood Pressure 118/59 L 118/59 L Pulse Oximetry 91 Oxygen Delivery Oxygen Flow Rate <Jones Tello, DO - Last Filed: 06/27/25 12:27> Exam Narrative: General: Awake, alert, no acute distress HEENT: NC/AT, EOMI, right-sided exotropia neck: Fullness in left neck near central line placement, hemostatic heart: Regular rate, hypotensive on pressors lungs: Symmetric expansion, no IWOB, on supplemental oxygen via nasal cannula abdomen: Soft, NTTP, ND, nonperitoneal extremities: stage IV sacral decubitus ulcer down to bone, erythematous changes surrounding the ulcer, necrotic base, tunneling cephalad, grossly infected; bilateral BKA psych: Normal affect, normal mood, normal judgment <Jones Tello DO - Last Filed: 06/27/25 12:27> Back/Spine/Pelvis: Other: Stage 4 sacral decubitus ulcer with foul smelling necrotic tissue in base and some necrotic skin around edges. Bone palpable in wound bed but appears firm. <Jeremias Little DO - Last Filed: 06/27/25 12:40> Results Labs Result diagrams: 06/27/25 05:12 06/27/25 05:12 <Jones Tello DO - Last Filed: 06/27/25 12:27> Labs: Abnormal lab results 06/26/25 06/26/25 06/26/25 Range/Units 14:48 15:20 17:14 RBC (4.6-6.20) M/mm3 Hgb (14.0-18.0) g/dL Hct (42.0-52.0) % MCV (80-100) fl MCHC (32-36) g/dl RDW (11.5-14.5) % Plt Count (150-375) k/mm3 Neut % (Auto) (45.5-73.1) % Lymph % (Auto) (18.3-44.2) % Runnels % (Auto) (2.6-8.5) % Lymph # (Auto) (0.9-3.2) K/mm3 Runnels # (Auto) (0.1-0.6) K/mm3 Absolute Neuts (auto) (1.3-6.7) K/mm3 PT (11.1-14.7) Seconds APTT (22.3-36.8) Seconds ABG pH (7.350-7.450) ABG HCO3 (22.0-26.0) mEq/l ABG O2 Content (16.0-22.0) %vol Total Hemoglobin (12.0-18.0) g/dL Carbon Dioxide (22-30) mmol/L Creatinine (0.7-1.3) mg/dL Estimated GFR (59 - ) Glucose (65-110) mg/dL POC Capillary Glucose 166 H 177 H (65-105) mg/dl Calcium (8.4-10.2) mg/dL Phosphorus (2.5-4.5) mg/dL Alkaline Phosphatase (38-126) U/L Ammonia < 9 L (9-30) umol/L Albumin (3.5-5.1) g/dL Random Vancomycin (10-20) ug/mL 06/26/25 06/26/25 06/27/25 Range/Units 18:56 21:19 00:11 RBC (4.6-6.20) M/mm3 Hgb (14.0-18.0) g/dL Hct (42.0-52.0) % MCV (80-100) fl MCHC (32-36) g/dl RDW (11.5-14.5) % Plt Count (150-375) k/mm3 Neut % (Auto) (45.5-73.1) % Lymph % (Auto) (18.3-44.2) % Runnels % (Auto) (2.6-8.5) % Lymph # (Auto) (0.9-3.2) K/mm3 R[place]els # (Auto) (0.1-0.6) K/mm3 Absolute Neuts (auto) (1.3-6.7) K/mm3 PT (11.1-14.7) Seconds APTT (22.3-36.8) Seconds ABG pH (7.350-7.450) ABG HCO3 (22.0-26.0) mEq/l ABG O2 Content (16.0-22.0) %vol Total Hemoglobin (12.0-18.0) g/dL Carbon Dioxide (22-30) mmol/L Creatinine (0.7-1.3) mg/dL Estimated GFR (59 - ) Glucose (65-110) mg/dL POC Capillary Glucose 123 H 123 H (65-105) mg/dl Calcium (8.4-10.2) mg/dL Phosphorus (2.5-4.5) mg/dL Alkaline Phosphatase (38-126) U/L Ammonia (9-30) umol/L Albumin (3.5-5.1) g/dL Random Vancomycin 9.7 L (10-20) ug/mL 06/27/25 06/27/25 06/27/25 Range/Units 05:12 05:25 06:34 RBC 3.21 L (4.6-6.20) M/mm3 Hgb 9.8 L (14.0-18.0) g/dL Hct 32.3 L (42.0-52.0) % MCV 100.6 H (80-100) fl MCHC 30.3 L (32-36) g/dl RDW 18.2 H (11.5-14.5) % Plt Count 108 L (150-375) k/mm3 Neut % (Auto) 83.6 H (45.5-73.1) % Lymph % (Auto) 3.0 L (18.3-44.2) % Runnels % (Auto) 11.7 H (2.6-8.5) % Lymph # (Auto) 0.28 L (0.9-3.2) K/mm3 R[place] # (Auto) 1.1 H (0.1-0.6) K/mm3 Absolute Neuts (auto) 7.7 H (1.3-6.7) K/mm3 PT 22.7 H (11.1-14.7) Seconds APTT 46.2 H (22.3-36.8) Seconds ABG pH 7.461 H (7.350-7.450) ABG HCO3 28.5 H (22.0-26.0) mEq/l ABG O2 Content 14.2 L (16.0-22.0) %vol Total Hemoglobin 10.6 L (12.0-18.0) g/dL Carbon Dioxide 31 H (22-30) mmol/L Creatinine 2.23 H (0.7-1.3) mg/dL Estimated GFR 30 L (59 - ) Glucose 118 H (65-110) mg/dL POC Capillary Glucose (65-105) mg/dl Calcium 8.1 L (8.4-10.2) mg/dL Phosphorus 2.4 L (2.5-4.5) mg/dL Alkaline Phosphatase 162 H (38-126) U/L Ammonia < 9 L (9-30) umol/L Albumin 3.1 L (3.5-5.1) g/dL Random Vancomycin 21.1 H (10-20) ug/mL 06/27/25 Range/Units 09:52 RBC (4.6-6.20) M/mm3 Hgb (14.0-18.0) g/dL Hct (42.0-52.0) % MCV (80-100) fl MCHC (32-36) g/dl RDW (11.5-14.5) % Plt Count (150-375) k/mm3 Neut % (Auto) (45.5-73.1) % Lymph % (Auto) (18.3-44.2) % [place] % (Auto) (2.6-8.5) % Lymph # (Auto) (0.9-3.2) K/mm3 [place] # (Auto) (0.1-0.6) K/mm3 Absolute Neuts (auto) (1.3-6.7) K/mm3 PT (11.1-14.7) Seconds APTT (22.3-36.8) Seconds ABG pH (7.350-7.450) ABG HCO3 (22.0-26.0) mEq/l ABG O2 Content (16.0-22.0) %vol Total Hemoglobin (12.0-18.0) g/dL Carbon Dioxide (22-30) mmol/L Creatinine (0.7-1.3) mg/dL Estimated GFR (59 - ) Glucose (65-110) mg/dL POC Capillary Glucose 110 H (65-105) mg/dl Calcium (8.4-10.2) mg/dL Phosphorus (2.5-4.5) mg/dL Alkaline Phosphatase (38-126) U/L Ammonia (9-30) umol/L Albumin (3.5-5.1) g/dL Random Vancomycin (10-20) ug/mL Diabetes panel 06/27/25 Range/Units 05:12 Sodium 137 (137-145) mmol/L Potassium 3.6 (3.4-5.0) mmol/L Chloride 98 (98-107) mmol/L Carbon Dioxide 31 H (22-30) mmol/L BUN 15 D (9-20) mg/dL Creatinine 2.23 H (0.7-1.3) mg/dL Glucose 118 H (65-110) mg/dL Calcium 8.1 L (8.4-10.2) mg/dL AST 24 (17-59) U/L ALT 14 (6-50) U/L Alkaline Phosphatase 162 H (38-126) U/L Total Protein 6.9 (6.3-8.2) g/dL Albumin 3.1 L (3.5-5.1) g/dL Calcium panel 06/27/25 Range/Units 05:12 Calcium 8.1 L (8.4-10.2) mg/dL Phosphorus 2.4 L (2.5-4.5) mg/dL Albumin 3.1 L (3.5-5.1) g/dL Pituitary panel 06/27/25 Range/Units 05:12 Sodium 137 (137-145) mmol/L Potassium 3.6 (3.4-5.0) mmol/L Chloride 98 (98-107) mmol/L Carbon Dioxide 31 H (22-30) mmol/L BUN 15 D (9-20) mg/dL Creatinine 2.23 H (0.7-1.3) mg/dL Glucose 118 H (65-110) mg/dL Calcium 8.1 L (8.4-10.2) mg/dL Adrenal panel 06/27/25 Range/Units 05:12 Sodium 137 (137-145) mmol/L Potassium 3.6 (3.4-5.0) mmol/L Chloride 98 (98-107) mmol/L Carbon Dioxide 31 H (22-30) mmol/L BUN 15 D (9-20) mg/dL Creatinine 2.23 H (0.7-1.3) mg/dL Glucose 118 H (65-110) mg/dL Calcium 8.1 L (8.4-10.2) mg/dL Total Bilirubin 1.0 (0.2-1.3) mg/dL AST 24 (17-59) U/L ALT 14 (6-50) U/L Alkaline Phosphatase 162 H (38-126) U/L Total Protein 6.9 (6.3-8.2) g/dL Albumin 3.1 L (3.5-5.1) g/dL All other labs normal. <Jones Tello, DO - Last Filed: 06/27/25 12:27> Imaging Additional studies: ITS Impressions Chest X-Ray 06/26/25 07:00 IMPRESSION: 1. Interstitial pulmonary edema and/or pneumonitis 2. Persistent significant bibasilar atelectasis and/or airspace disease. Abdomen/Pelvis CT 06/26/25 07:59 IMPRESSION: 1. Decubitus wounds. 2. No evidence of osteomyelitis. 3. No evidence of associated abscess. 4. No acute abnormality within abdomen or pelvis. Chest X-Ray 06/26/25 10:45 IMPRESSION: 1. No pneumothorax after central line placement. 2. Improving interstitial pulmonary edema. Chest X-Ray 06/27/25 11:23 IMPRESSION: 1. Mild interstitial pulmonary edema. <Jeremias Little, DO - Last Filed: 06/27/25 12:40>
[2025-06-27] MEDS: MIDODRINE HCL 10 MG TABLET PO ×3 (11:40→16:37)
--- NOTE | 2025-06-27 17:08 | PM.IMPN ---
Progress Note: A&P Assessment and Plan (1) Shock: Code(s): R57.9 - Shock, unspecified Status: Acute Assessment and Plan: Patient met SIRS criteria due to RR >20, WBC >12, +fever. Presented to [place] ER on 06/26 with altered mental status, hypotension, shortness of breath, and fever. Patient started on norepinephrine gtt for acute hypotension to maintain MAP >65. Shock secondary to sepsis versus cardiogenic. Given patient has history of biventricular dysfunction cardiogenic cannot be excluded, however clinical picture (fever, shortness of breath) and imaging findings concerning for pneumonia as well as the chronic decubitus ulcer more so fit the picture of sepsis. - Lactic 2.0, check procalcitonin. - IV fluids held as the patient's BNP was significantly elevated and imaging showed pulmonary edema - CXR on 06/26 showed bilateral infiltrates/pulmonary edema with possible perihilar and airspace opacity/pneumonia - started on broad-spectrum antibiotics including cefepime, vancomycin, doxycycline, and Flagyl on 06/26 to cover pneumonia and possible pathogens affecting the patient's decubitus ulcer - admission to the ICU with plater hot dip consulted - continue norepinephrine to maintain map greater than 65 (2) Pulmonary edema: Qualifiers: Chronicity: acute Qualified Code(s): J81.0 - Acute pulmonary edema Code(s): J81.1 - Chronic pulmonary edema Status: Acute Assessment and Plan: Pulmonary edema seen on CXR. Patient has history of combined systolic/diastolic CHF. Fluid balance managed via dialysis that he receives Mondays, Wednesdays, Fridays. Has not missed any treatments and has been able to receive his full treatments. - nephrology consulted for inpatient dialysis. - plater hot dip spoke with Nishi ROBERTSON, plan for dialysis today (06/26) - monitor oxygen saturations (3) Pneumonia: Qualifiers: Laterality: left Lung location: unspecified part of lung Pneumonia type: due to unspecified organism Qualified Code(s): J18.9 - Pneumonia, unspecified organism Code(s): J18.9 - Pneumonia, unspecified organism Status: Acute Assessment and Plan: - antibiotics initiated as above, see shock - blood cultures pending - MRSA PCR negative - antipyretic p.r.n. (4) Decubitus ulcer: Code(s): L89.90 - Pressure ulcer of unspecified site, unspecified stage Status: Acute Assessment and Plan: Patient has longstanding chronic decubitus ulcer. CT of the abdomen/pelvis showed no current complicating features including osteomyelitis or abscess. - general surgery consulted (5) ESRD (end stage renal disease) on dialysis: Code(s): N18.6 - End stage renal disease; Z99.2 - Dependence on renal dialysis Status: Acute Assessment and Plan: Patient has history of ESRD on hemodialysis. Receives treatment on Mondays, Wednesdays, Fridays. Per chart review, the patient was able to receive his full dialysis treatment yesterday (Saturday, 06/25). However the patient currently appears volume overloaded based off clinical exam and CXR findings. Coat Checker spoke with chip machine operator, plan for dialysis today. Nephrology aware patient is currently requiring norepinephrine and currently has a mild O2 requirement. - monitor electrolytes - monitor blood pressure (6) Type 2 diabetes mellitus: Qualifiers: Diabetes mellitus ad terminal makeup operator insulin use: without senior living use Diabetes mellitus complication status: with kidney complications Diabetes mellitus complication detail: with chronic kidney disease Chronic kidney disease stage: on chronic dialysis Qualified Code(s): E11.22 - Type 2 diabetes mellitus with diabetic chronic kidney disease; N18.6 - End stage renal disease; Z99.2 - Dependence on renal dialysis Code(s): E11.9 - Type 2 diabetes mellitus without complications Status: Chronic Assessment and Plan: History of type 2 diabetes complicated by ESRD, bilateral BKA, and diabetic neuropathy. - hypoglycemia protocol - POC blood glucose Q6H - hold home medications including Sevelamer and Tradjenta - correct regimen ordered - low dose Q6H - A1C 5.6% on 10/20/2024 (7) Anemia of chronic disease: Code(s): D63.8 - Anemia in other chronic diseases classified elsewhere Status: Chronic Assessment and Plan: Patient has history of anemia of chronic disease (ESRD). - Hgb 9.4 upon admission, at baseline - transfuse if <7 - monitor Plan patient with septic shock resulting in AMS presented to ER with hypotension most likely 2/2 sacral wound, patient is being treated with Cefepime, doxycycline, and Flagyl, patient clinical symptoms are improving and he is off the pressure and blood pressure is trending up, and his white counts are trending up, patient was seen by general surgery service and recommended, will require debridement of his sacral wound, patient and family has agreed. patient will be transferred out of ICU to IMU, will monitor, once clinically stable, will have PT/OT evaluate the patient and patient will benefit going to rehab. will monitor, patient family is present and gave updates. Home medications held as the patient is currently somnolent and A&O times 0. Made NPO. Resume home medications once mental status improved and when appropriate. Diet: NPO GI Prophylaxis: Pantoprazole IV DVT Prophylaxis: Heparin SQ IV fluids: none, concern for volume overload and plan for diuresis via HD Lines/Tubes: Peripheral IV Code Status: DNR, paperwork in patient's chart Subjective Date/time seen: 06/27/25 17:08 Interval history: AMS, Fever H&P-Narrative: 60 y/o M with PMH of iron deficiency anemia/anemia of chronic disease, pAFib, coronary artery disease s/p multiple stents and CABG, diabetes, ESRD on HD, CHF, and RISA not on CPAP presents here with altered mental status and fever. The patient presents here from [facility] via EMS on 06/26 for further evaluation of altered mental status fever. The patient is currently A&Ox0 and HPI was obtained through ED report and chart review. Per chart review, he was initially evaluated yesterday on 06/25 for altered mental status. Alteration was noted during his dialysis treatment, was able to receive his full dialysis treatment. Per family at that time, they reported he has been slightly more confused since starting a new pain medication. He did not receive that medication yesterday. Patient later improved during his ED evaluation and became orientated to self and place. He was discharged back to his facility with recommendations/referral for further wound care for his chronic decubitus ulcer of the sacrum. He is returning today as he has developed recurrent altered mental status and now has a fever. Upon arrival to the emergency department he was found to be febrile with a temp of 102.3? F and mildly hypotensive. Despite improvement in blood pressure, the patient remains A&Ox0. No further history or review of systems available at this time. Initial VS at presentation: 102.3? F, HR 76, R 21, 106/50, and 91% on 1L nasal cannula. Now 97% on 2 L nasal cannula. Lowest BP in the ED seen was 86/44, now on pressor. ED workup showed: WBC 13.3 9, hemoglobin 9.4 (10.9 on 06/25, at baseline), INR 1.8, sodium 136, potassium 3.4, creatinine 2.76 and GFR 23, glucose 137, lactic 2.0 H, BNP greater than 30,000, albumin 2.5. CXR showed interstitial pulmonary edema and/or pneumonitis, persistent significant bibasilar atelectasis and/or airspace disease. CT of the abdomen/pelvis showed a decubitus wound with no evidence of osteomyelitis/abscess, no acute abnormality within abdomen or pelvis. Repeat CXR post central line showed no pneumothorax and improving interstitial pulmonary edema. patient with septic shock resulting in AMS presented to ER with hypotension most likely 2/2 sacral wound, patient is being treated with Cefepime, doxycycline, and Flagyl, patient clinical symptoms are improving and he is off the pressure and blood pressure is trending up, and his white counts are trending up, patient was seen by general surgery service and recommended, will require debridement of his sacral wound, patient and family has agreed. patient will be transferred out of ICU to IMU, will monitor, once clinically stable, will have PT/OT evaluate the patient and patient will benefit going to rehab. will monitor, patient family is present and gave updates. Review of Systems Review of Systems: All systems reviewed & are unremarkable except as noted in HPI and below Exam Narrative: Patient is comfortable, NAD HEENT: eyes are clear and none icteric LUNGS:CTA HEART: RR S1S2 ABD: BS+, Soft and nontender Lower extremities: no edema SKIN: nonjaundiced Neuro: grossly intact. Objective Data Vital Signs Vital Signs: Vital Signs - 24 hr 06/26/25 17:15 06/26/25 17:21 06/26/25 17:30 Temperature 35.7 C L Pulse Rate 60 64 Respiratory Rate Blood Pressure 98/43 L 97/44 L Pulse Oximetry Oxygen Delivery Oxygen Flow Rate 06/26/25 17:36 06/26/25 17:38 06/26/25 17:45 Temperature 35.8 C L Pulse Rate 64 67 Respiratory Rate Blood Pressure 97/44 L 103/43 L Pulse Oximetry Oxygen Delivery Oxygen Flow Rate 06/26/25 17:51 06/26/25 18:00 06/26/25 18:00 Temperature 36.4 C L Pulse Rate 69 70 Respiratory Rate Blood Pressure 92/47 L Pulse Oximetry Oxygen Delivery Oxygen Flow Rate 06/26/25 18:00 06/26/25 18:15 06/26/25 18:30 Temperature Pulse Rate 70 70 67 Respiratory Rate Blood Pressure 92/47 L 111/46 L 109/49 L Pulse Oximetry Oxygen Delivery Oxygen Flow Rate 06/26/25 18:45 06/26/25 18:52 06/26/25 18:54 Temperature Pulse Rate 63 77 Respiratory Rate Blood Pressure 101/52 L 101/52 L 98/46 L Pulse Oximetry Oxygen Delivery Oxygen Flow Rate 06/26/25 18:57 06/26/25 19:00 06/26/25 19:30 Temperature 36.5 C 36.4 C Pulse Rate 81 77 Respiratory Rate 18 Blood Pressure 89/67 L 140/47 L Pulse Oximetry 96 Oxygen Delivery Oxygen Flow Rate 06/26/25 19:38 06/26/25 19:45 06/26/25 20:00 Temperature Pulse Rate 72 71 70 Respiratory Rate Blood Pressure 140/47 L 122/44 L 114/43 L Pulse Oximetry Oxygen Delivery Oxygen Flow Rate 06/26/25 20:00 06/26/25 20:00 06/26/25 20:00 Temperature 36.8 C Pulse Rate 70 72 Respiratory Rate 26 H Blood Pressure 114/43 L Pulse Oximetry 97 97 Oxygen Delivery Nasal Cannula Oxygen Flow Rate 2 06/26/25 21:00 06/26/25 21:20 06/26/25 21:34 Temperature 36.5 C Pulse Rate 70 72 77 Respiratory Rate 21 H 22 H Blood Pressure 128/41 L 130/48 L 123/52 L Pulse Oximetry 97 100 Oxygen Delivery Oxygen Flow Rate 06/26/25 22:00 06/26/25 22:00 06/26/25 22:10 Temperature Pulse Rate 71 71 68 Respiratory Rate 29 H Blood Pressure 136/44 L 136/44 L Pulse Oximetry 100 Oxygen Delivery Oxygen Flow Rate 06/26/25 23:00 06/26/25 23:00 06/26/25 23:30 Temperature Pulse Rate 72 72 70 Respiratory Rate 21 H Blood Pressure 131/46 L 131/46 L 119/47 L Pulse Oximetry 100 Oxygen Delivery Oxygen Flow Rate 06/27/25 00:00 06/27/25 00:00 06/27/25 00:00 Temperature 37.3 C Pulse Rate 70 70 Respiratory Rate 18 Blood Pressure 132/45 L 132/45 L Pulse Oximetry 100 100 Oxygen Delivery Nasal Cannula Oxygen Flow Rate 2 06/27/25 00:00 06/27/25 00:30 06/27/25 01:00 Temperature Pulse Rate 67 68 70 Respiratory Rate 23 H Blood Pressure 124/46 L 117/49 L Pulse Oximetry 100 Oxygen Delivery Oxygen Flow Rate 06/27/25 02:00 06/27/25 02:00 06/27/25 02:00 Temperature Pulse Rate 69 69 69 Respiratory Rate 23 H Blood Pressure 133/48 L 133/48 L Pulse Oximetry 100 Oxygen Delivery Oxygen Flow Rate 06/27/25 03:00 06/27/25 03:00 06/27/25 04:00 Temperature 36.8 C Pulse Rate 66 66 65 Respiratory Rate 22 H Blood Pressure 135/48 L 135/48 L 140/48 L Pulse Oximetry 100 Oxygen Delivery Oxygen Flow Rate 06/27/25 04:00 06/27/25 04:00 06/27/25 04:00 Temperature Pulse Rate 65 67 Respiratory Rate 20 Blood Pressure 140/48 L Pulse Oximetry 100 99 Oxygen Delivery Nasal Cannula Oxygen Flow Rate 1 06/27/25 05:00 06/27/25 06:00 06/27/25 06:00 Temperature 36.4 C Pulse Rate 69 74 74 Respiratory Rate 19 19 Blood Pressure 115/38 L 119/42 L Pulse Oximetry 98 99 Oxygen Delivery Oxygen Flow Rate 06/27/25 07:00 06/27/25 07:52 06/27/25 08:00 Temperature 36.7 C Pulse Rate 85 75 78 Respiratory Rate 19 18 Blood Pressure 99/64 L 130/85 121/44 L Pulse Oximetry 96 91 Oxygen Delivery Oxygen Flow Rate 06/27/25 08:00 06/27/25 08:00 06/27/25 09:00 Temperature Pulse Rate 73 75 Respiratory Rate 22 H Blood Pressure 118/59 L Pulse Oximetry 95 91 Oxygen Delivery Room Air Oxygen Flow Rate 06/27/25 09:17 06/27/25 10:00 06/27/25 10:00 Temperature Pulse Rate 79 71 75 Respiratory Rate 24 H Blood Pressure 118/59 L 107/75 Pulse Oximetry 94 Oxygen Delivery Oxygen Flow Rate 06/27/25 10:00 06/27/25 11:00 06/27/25 12:00 Temperature 36.7 C Pulse Rate 75 77 75 Respiratory Rate 21 H 21 H Blood Pressure 111/43 L 121/44 L 112/56 L Pulse Oximetry 94 91 Oxygen Delivery Oxygen Flow Rate 06/27/25 12:00 06/27/25 12:00 06/27/25 13:00 Temperature Pulse Rate 74 75 Respiratory Rate 18 Blood Pressure 121/45 L Pulse Oximetry 92 92 Oxygen Delivery Room Air Oxygen Flow Rate 06/27/25 14:00 06/27/25 15:42 Temperature 36.5 C Pulse Rate 73 73 Respiratory Rate 20 Blood Pressure 116/53 L Pulse Oximetry 98 Oxygen Delivery Oxygen Flow Rate Intake/Output Intake/Output: Intake & Output 06/24/25 06/25/25 06/26/25 06/27/25 23:59 23:59 23:59 23:59 Intake Total 737.5 1092.8 Output Total 3000 0 Balance -2262.5 1092.8 Meds/Results Medications: Active Medications Generic Name Dose Route Start Last Admin Trade Name Freq PRN Reason Stop Dose Admin Atorvastatin Calcium 40 mg 06/27/25 21:00 Atorvastatin 40 Mg Tablet PO HS [facility] Dextrose 12.5 gm 06/27/25 09:51 Dextrose 50% 25 Gm/50 Ml Syringe IV PUSH PRN PRN Hypoglycemia Protocol Ferrous Sulfate 325 mg 06/28/25 09:00 Ferrous Sulfate 325 Mg Tablet BY MOUTH DAILY [facility] Folic Acid 1 mg 06/28/25 09:00 Folic Acid 1 Mg Tablet PO DAILY [facility] Gabapentin 200 mg 06/27/25 21:00 Gabapentin 100 Mg Capsule PO HS [facility] Glucagon 1 mg 06/27/25 09:51 Glucagon For Inj 1 Mg Vial IM PRN PRN Hypoglycemia Protocol Glucose 15 gm 06/27/25 09:51 Glucose Oral Gel 15 Gm Of Glucse In 37.5 Gm Tube PO PRN PRN Hypoglycemia Protocol Heparin Sodium (Porcine) 5,000 units 06/26/25 21:00 06/27/25 08:52 Heparin Sodium 5,000 Units/Ml Vial SUB-Q 5,000 units Q12HR [facility] Administration Cefepime HCl 1 gm/ Sodium 50 mls @ 100 mls/hr 06/27/25 09:00 06/27/25 09:22 Chloride IVPB Infused DAILY [facility] Infusion Doxycycline Hyclate 100 mg/ 100 mls @ 100 mls/hr 06/27/25 03:00 06/27/25 15:00 Sodium Chloride IVPB 100 mls/hr Q12H [facility] Administration Metronidazole 500 mg in 100 mls @ 100 mls/hr 06/27/25 03:00 06/27/25 12:41 Flagyl 500 Mg/Iso Soln 100 Ml IVPB Infused Q8H [facility] Infusion Dextrose 1,000 mls @ 100 mls/hr 06/27/25 09:51 Dextrose 5% 1,000 Ml IVPB PRN PRN Hypoglycemia Protocol Albumin Human 50 mls @ 999 mls/hr 06/27/25 10:28 Albutein IVPB 06/28/25 10:27 Q10M PRN HYPOTENSION Insulin Aspart 2 - 5 units 06/27/25 11:30 06/27/25 16:16 Insulin Aspart (*Bkc) 100 Units/Ml SUB-Q Not Given ACHS [facility] Protocol Midodrine 10 mg 06/27/25 13:00 06/27/25 16:37 Midodrine Hcl 10 Mg Tablet PO 10 mg TID [facility] Administration Mirtazapine 15 mg 06/27/25 21:00 Mirtazapine 15 Mg Tablet PO HS [facility] Mirtazapine 7.5 mg 06/27/25 21:00 Mirtazapine 7.5 Mg Tablet PO HS [facility] Pantoprazole Sodium 40 mg 06/26/25 21:00 06/27/25 08:52 Pantoprazole Sodium Iv 40 Mg Vial IV PUSH 40 mg Q12HR [facility] Administration Senna/Docusate Sodium 1 tab 06/27/25 09:01 Senna/Docusate Sodium Tablet PO BID PRN Constipation Sertraline HCl 50 mg 06/28/25 09:00 Sertraline Hcl 50 Mg Tablet PO QAM [facility] Sevelamer Carbonate 800 mg 06/27/25 17:00 Sevelamer Carbonate 800 Mg Tablet PO DAILY@1700 [facility] Sodium Chloride 10 ml 06/26/25 14:00 06/27/25 13:42 Central Line Flush IV PUSH 10 ml Q8HR [facility] Administration Sodium Chloride 20 ml 06/26/25 11:46 Central Line Flush IV PUSH PRN PRN after blood draws Sodium Hypochlorite 1 applic 06/27/25 21:00 Sod Hypochlorite 1/4 Strength 473 Ml TOPICAL Q12HR [facility] Vancomycin HCl 1 each 06/27/25 13:37 Vancomycin For Hemodialysis IVPB PRN PRN Vancomycin Protocol Zinc Sulfate 220 mg 06/28/25 09:00 Zinc Sulfate 220 Mg Capsule PO [facility] Radiology Results: ITS Impressions Abdomen/Pelvis CT 06/26/25 07:59 IMPRESSION: 1. Decubitus wounds. 2. No evidence of osteomyelitis. 3. No evidence of associated abscess. 4. No acute abnormality within abdomen or pelvis. Chest X-Ray 06/27/25 11:23 IMPRESSION: 1. Mild interstitial pulmonary edema. Labs Labs: Laboratory Results - last 24 hr 06/26/25 06/26/25 06/26/25 17:14 18:56 21:19 WBC RBC Hgb Hct MCV MCH MCHC RDW Plt Count MPV Immature Gran % (Auto) Neut % (Auto) Lymph % (Auto) [place] % (Auto) Eos % (Auto) Baso % (Auto) Lymph # (Auto) [place] # (Auto) Eos # (Auto) Baso # (Auto) Abs Immat Gran (auto) Absolute Neuts (auto) Absolute Nucleated RBC Band Neutrophils % Nucleated RBC % Platelet Estimate Hypochromasia Anisocytosis Macrocytosis Schistocytes PT INR APTT Puncture Site ABG pH ABG pCO2 ABG pO2 ABG PO2/FiO2 Ratio ABG HCO3 ABG O2 Saturation ABG O2 Content ABG Base Excess A-a Gradient Oxyhemoglobin Carboxyhemoglobin Methemoglobin Reduced Hemoglobin Total Hemoglobin O2 Delivery Device O2 Liters/Min FiO2 Sodium Potassium Chloride Carbon Dioxide Anion Gap BUN Creatinine Estim Creat Clear Calc Estimated GFR Glucose POC Capillary Glucose 123 H Lactic Acid Calcium Phosphorus Magnesium Total Bilirubin AST ALT Alkaline Phosphatase Ammonia < 9 L Total Protein Albumin Random Vancomycin 9.7 L 06/27/25 06/27/25 06/27/25 00:11 05:12 05:25 WBC 9.2 RBC 3.21 L Hgb 9.8 L Hct 32.3 L MCV 100.6 H MCH 30.5 MCHC 30.3 L RDW 18.2 H Plt Count 108 L MPV 10.0 Immature Gran % (Auto) 0.3 Neut % (Auto) 83.6 H Lymph % (Auto) 3.0 L [place] % (Auto) 11.7 H Eos % (Auto) 1.1 Baso % (Auto) 0.3 Lymph # (Auto) 0.28 L [place] # (Auto) 1.1 H Eos # (Auto) 0.1 Baso # (Auto) 0.0 Abs Immat Gran (auto) 0.03 Absolute Neuts (auto) 7.7 H Absolute Nucleated RBC 0.000 Band Neutrophils % Not Reportable Nucleated RBC % 0.0 Platelet Estimate Slightly decreased Hypochromasia 1+ Anisocytosis 1+ Macrocytosis 1+ Schistocytes None seen PT 22.7 H INR 2.0 APTT 46.2 H Puncture Site Left brachial ABG pH 7.461 H ABG pCO2 40.9 ABG pO2 80.6 ABG PO2/FiO2 Ratio 3.22 ABG HCO3 28.5 H ABG O2 Saturation 96.4 ABG O2 Content 14.2 L ABG Base Excess 4.3 A-a Gradient 49.1 Oxyhemoglobin 94.8 Carboxyhemoglobin 0.9 Methemoglobin 0.3 Reduced Hemoglobin 4.0 Total Hemoglobin 10.6 L O2 Delivery Device Nasal cannula O2 Liters/Min 1.0 FiO2 25 Sodium 137 Potassium 3.6 Chloride 98 Carbon Dioxide 31 H Anion Gap 8 BUN 15 D Creatinine 2.23 H Estim Creat Clear Calc Not Reportable Estimated GFR 30 L Glucose 118 H POC Capillary Glucose 123 H Lactic Acid 0.9 Calcium 8.1 L Phosphorus 2.4 L Magnesium 1.8 Total Bilirubin 1.0 AST 24 ALT 14 Alkaline Phosphatase 162 H Ammonia Total Protein 6.9 Albumin 3.1 L Random Vancomycin 21.1 H 06/27/25 06/27/25 06/27/25 06:34 09:52 11:13 WBC RBC Hgb Hct MCV MCH MCHC RDW Plt Count MPV Immature Gran % (Auto) Neut % (Auto) Lymph % (Auto) [place] % (Auto) Eos % (Auto) Baso % (Auto) Lymph # (Auto) [place] # (Auto) Eos # (Auto) Baso # (Auto) Abs Immat Gran (auto) Absolute Neuts (auto) Absolute Nucleated RBC Band Neutrophils % Nucleated RBC % Platelet Estimate Hypochromasia Anisocytosis Macrocytosis Schistocytes PT INR APTT Puncture Site ABG pH ABG pCO2 ABG pO2 ABG PO2/FiO2 Ratio ABG HCO3 ABG O2 Saturation ABG O2 Content ABG Base Excess A-a Gradient Oxyhemoglobin Carboxyhemoglobin Methemoglobin Reduced Hemoglobin Total Hemoglobin O2 Delivery Device O2 Liters/Min FiO2 Sodium Potassium Chloride Carbon Dioxide Anion Gap BUN Creatinine Estim Creat Clear Calc Estimated GFR Glucose POC Capillary Glucose 110 H 111 H Lactic Acid Calcium Phosphorus Magnesium Total Bilirubin AST ALT Alkaline Phosphatase Ammonia < 9 L Total Protein Albumin Random Vancomycin 10/26/25 16:06 WBC RBC Hgb Hct MCV MCH MCHC RDW Plt Count MPV Immature Gran % (Auto) Neut % (Auto) Lymph % (Auto) [place] % (Auto) Eos % (Auto) Baso % (Auto) Lymph # (Auto) [place] # (Auto) Eos # (Auto) Baso # (Auto) Abs Immat Gran (auto) Absolute Neuts (auto) Absolute Nucleated RBC Band Neutrophils % Nucleated RBC % Platelet Estimate Hypochromasia Anisocytosis Macrocytosis Schistocytes PT INR APTT Puncture Site ABG pH ABG pCO2 ABG pO2 ABG PO2/FiO2 Ratio ABG HCO3 ABG O2 Saturation ABG O2 Content ABG Base Excess A-a Gradient Oxyhemoglobin Carboxyhemoglobin Methemoglobin Reduced Hemoglobin Total Hemoglobin O2 Delivery Device O2 Liters/Min FiO2 Sodium Potassium Chloride Carbon Dioxide Anion Gap BUN Creatinine Estim Creat Clear Calc Estimated GFR Glucose POC Capillary Glucose 143 H Lactic Acid Calcium Phosphorus Magnesium Total Bilirubin AST ALT Alkaline Phosphatase Ammonia Total Protein Albumin Random Vancomycin Quality VTE Prophylaxis VTE prophylaxis: pharmacologic ordered
[2025-06-27] MEDS: SEVELAMER CARBONATE 800 MG TABLET PO (17:20)
--- NOTE | 2025-06-27 18:59 | PC.NURSE ---
This patient, Kobi Salter, was received from ICU 2on 06/27/25 at 1859. Patient/family oriented to unit policies and routines. Report received from Becka FRANKLIN.
[2025-06-27] MEDS: GABAPENTIN 100 MG CAPSULE 200 MG PO (20:24)
[2025-06-27] MEDS: ATORVASTATIN 40 MG TABLET PO (20:24)
[2025-06-27] MEDS: MIRTAZAPINE 7.5 MG TABLET PO (20:24)
[2025-06-27] MEDS: MIRTAZAPINE 15 MG TABLET PO (20:24)
[2025-06-28] VITALS (32 sets, daily range): BP systolic 85–135; BP diastolic 32–77; PULSE 58–86; RESP 12–18; TEMP 35.8–37.2; O2SAT 90–100; BMI 36.3
[2025-06-28] MEDS: metroNIDAZOLE 500 MG/ISO 100ML 500 MG/100 ML BAG 100 MG IVPB ×3 (03:08→19:10)
[2025-06-28] MEDS: DOXYCYCLINE IV 100 MG in SODIUM CHLORIDE 0.9% IV 100 ML IVPB ×2 (03:08→15:33)
[2025-06-28 06:07] LABS: Hematocrit 30.7 % (42.0-52.0); Hemoglobin 9.4 g/dL (14.0-18.0); Immature Granulocyte Percent A 0.5 % (0-0.5); Immature Platelet Fraction Pct 3.3 % (0.9-11.2); Lymphocytes Absolute Auto 0.40 K/mm3 (0.9-3.2); Mean Corpuscular HGB Conc 30.6 g/dl (32-36); Mean Corpuscular Hemoglobin 30.5 pg (26-34); Mean Corpuscular Volume 99.7 fl (80-100); Nucleated Red Blood Cells Absolute Auto 0.000 K/mm3 (0.0-0.012); Nucleated Red Blood Cells Perc 0.0 % (0.0-0.2); Platelet Count Result 88 k/mm3 (150-375); Red Blood Count 3.08 M/mm3 (4.6-6.20); White Blood Count 5.6 K/mm3 (4.5-10.0)
[2025-06-28 06:33] LABS: Basophilic Stippling Occasional; Burr Cells 1+; Hypochromasia 1+; Macrocytosis 1+ (NORMAL); Schistocytes None Seen
[2025-06-28 06:40] LABS: Alanine Aminotransferase 12 U/L (6-50); Albumin Level 3.0 g/dL (3.5-5.1); Alkaline Phosphatase 139 U/L (38-126); Anion Gap 9 mmol/L (4-12); Aspartate Amino Transferase 20 U/L (17-59); Bilirubin,Total 0.8 mg/dL (0.2-1.3); Blood Urea Nitrogen 26 mg/dL (9-20); Calcium 8.1 mg/dL (8.4-10.2); Carbon Dioxide 30 mmol/L (22-30); Chloride 98 mmol/L (98-107); Estimated Glomerular Filt Rate 19; Glucose 113 mg/dL (65-110); Magnesium 1.8 mg/dL (1.6-2.3); Potassium 3.1 mmol/L (3.4-5.0); Sodium 137 mmol/L (137-145); Total Protein 6.7 g/dL (6.3-8.2)
--- NOTE | 2025-06-28 07:18 | PM.PNGS ---
Progress Note: A&P Assessment and Plan (1) Type 2 diabetes mellitus: Qualifiers: Chronic kidney disease stage: on chronic dialysis Diabetes mellitus complication detail: with chronic kidney disease Diabetes mellitus complication status: with kidney complications Diabetes mellitus [employer] insulin use: without [place] [facility] use Qualified Code(s): E11.22 - Type 2 diabetes mellitus with diabetic chronic kidney disease; N18.6 - End stage renal disease; Z99.2 - Dependence on renal dialysis Code(s): E11.9 - Type 2 diabetes mellitus without complications Status: Chronic (2) Decubitus ulcer: Qualifiers: Pressure injury location: sacral region Pressure injury stage: stage 4 Qualified Code(s): L89.154 - Pressure ulcer of sacral region, stage 4 Code(s): L89.90 - Pressure ulcer of unspecified site, unspecified stage Status: Acute (3) Septic shock: Code(s): A41.9 - Sepsis, unspecified organism; R65.21 - Severe sepsis with septic shock Status: Acute (4) Pulmonary edema: Qualifiers: Chronicity: acute Qualified Code(s): J81.0 - Acute pulmonary edema Code(s): J81.1 - Chronic pulmonary edema Status: Acute (5) Acute hypoxemic respiratory failure: Code(s): J96.01 - Acute respiratory failure with hypoxia Status: Acute (6) Paroxysmal atrial fibrillation: Code(s): I48.0 - Paroxysmal atrial fibrillation Status: Acute (7) ESRD (end stage renal disease) on dialysis: Code(s): N18.6 - End stage renal disease; Z99.2 - Dependence on renal dialysis Status: Acute (8) Acute exacerbation of CHF (congestive heart failure): Code(s): I50.9 - Heart failure, unspecified Status: Acute Plan General surgery consulted to evaluate decubitus ulcer. On initial presentation, patient did appear septic vs CHF exacerbation, likely combination of both. Patient's clinical status has improved with plans to wean off of Levophed and restart the patient's home midodrine. Leukocytosis is improving. Patient does have a significant amount of drainage from his sacral decubitus ulcer as well as necrotic tissue that is sloughing. I discussed with the patient that he would likely require surgical debridement. I discussed that in order to heal this wound, the patient will need routine offloading, he may require further surgical interventions, possible wound VAC therapy, and prolonged wound care. I discussed that in some instances if the patient does continue to have a chronic wound that becomes infected secondary to stooling that some patients ultimately require stool diversion. the patient was awake, alert, and oriented during our discussion. He expressed understanding and all questions were answered. He agrees that he would like to undergo surgical intervention. Plan - OR today for debridement of sacral decubitus ulcer - continue resuscitation and ICU cares - continue IV ABX - Wound care consult, continue Dakin's moistened kerlix on wound - remainder cares per primary team and consultants - surgery will follow A&P discussed with Dr. Little Subjective Subjective Date/Time Seen: 06/28/25 07:18 Interval history: NAEON. Transferred to floor over interval. Off pressors. WBC WNL. VSS. Afebrile. OR today for debridement Review of Systems Review of Systems: All systems reviewed & are unremarkable except as noted in HPI and below Exam Narrative: General: Awake, alert, no acute distress HEENT: NC/AT, EOMI, right-sided exotropia neck: Fullness in left neck near central line placement, hemostatic, not expanding heart: Regular rate, HDS, off pressors lungs: Symmetric expansion, no IWOB, on supplemental oxygen via nasal cannula abdomen: Soft, NTTP, ND, nonperitoneal extremities: stage IV sacral decubitus ulcer down to bone, erythematous changes surrounding the ulcer, necrotic base, tunneling cephalad, grossly infected; bilateral BKA Objective Data Vital Signs Vital Signs: Vital Signs - 24 hr 06/27/25 07:52 06/27/25 08:00 06/27/25 08:00 Temperature 98.1 F Pulse Rate 75 78 Respiratory Rate 18 Blood Pressure 130/85 121/44 L Pulse Oximetry 91 95 Oxygen Delivery Room Air 06/27/25 08:00 06/27/25 09:00 06/27/25 09:17 Temperature Pulse Rate 73 75 79 Respiratory Rate 22 H Blood Pressure 118/59 L 118/59 L Pulse Oximetry 91 Oxygen Delivery 06/27/25 10:00 06/27/25 10:00 06/27/25 10:00 Temperature Pulse Rate 71 75 75 Respiratory Rate 24 H Blood Pressure 107/75 111/43 L Pulse Oximetry 94 Oxygen Delivery 06/27/25 11:00 06/27/25 12:00 06/27/25 12:00 Temperature 98.0 F Pulse Rate 77 75 Respiratory Rate 21 H 21 H Blood Pressure 121/44 L 112/56 L Pulse Oximetry 94 91 92 Oxygen Delivery Room Air 06/27/25 12:00 06/27/25 13:00 06/27/25 14:00 Temperature Pulse Rate 74 75 73 Respiratory Rate 18 Blood Pressure 121/45 L Pulse Oximetry 92 Oxygen Delivery 06/27/25 15:42 06/27/25 16:00 06/27/25 18:00 Temperature 97.7 F Pulse Rate 73 69 67 Respiratory Rate 20 Blood Pressure 116/53 L Pulse Oximetry 98 Oxygen Delivery 06/27/25 20:00 06/28/25 00:00 06/28/25 00:00 Temperature 97.9 F Pulse Rate 64 64 64 Respiratory Rate 18 Blood Pressure 103/32 L Pulse Oximetry 90 Oxygen Delivery 06/28/25 04:00 Temperature Pulse Rate 58 L Respiratory Rate Blood Pressure Pulse Oximetry Oxygen Delivery Intake/Output Intake/Output: Intake & Output 06/25/25 06/26/25 06/27/25 06/28/25 23:59 23:59 23:59 23:59 Intake Total 737.5 1492.8 Output Total 3000 0 Balance -2262.5 1492.8 Meds/Results Medications: Active Medications Generic Name Dose Route Start Last Admin Trade Name Freq PRN Reason Stop Dose Admin Atorvastatin Calcium 40 mg 06/27/25 21:00 06/27/25 20:24 Atorvastatin 40 Mg Tablet PO 40 mg HS [facility] Administration Dextrose 12.5 gm 06/27/25 09:51 Dextrose 50% 25 Gm/50 Ml Syringe IV PUSH PRN PRN Hypoglycemia Protocol Epoetin Bradford-epbx 10,000 units 06/28/25 18:00 Epoetin Bradford-Epbx 10,000 Units/Ml Vial IV PUSH 06/28/25 18:01 ONCE ONE Ferrous Sulfate 325 mg 06/28/25 09:00 Ferrous Sulfate 325 Mg Tablet BY MOUTH DAILY [facility] Folic Acid 1 mg 06/28/25 09:00 Folic Acid 1 Mg Tablet PO DAILY [facility] Gabapentin 200 mg 06/27/25 21:00 06/27/25 20:24 Gabapentin 100 Mg Capsule PO 200 mg HS [facility] Administration Glucagon 1 mg 06/27/25 09:51 Glucagon For Inj 1 Mg Vial IM PRN PRN Hypoglycemia Protocol Glucose 15 gm 10/26/25 09:51 Glucose Oral Gel 15 Gm Of Glucse In 37.5 Gm Tube PO PRN PRN Hypoglycemia Protocol Heparin Sodium (Porcine) 5,000 units 06/26/25 21:00 06/27/25 22:45 Heparin Sodium 5,000 Units/Ml Vial SUB-Q 5,000 units Q12HR [facility] Administration Cefepime HCl 1 gm/ Sodium 50 mls @ 100 mls/hr 06/27/25 09:00 06/27/25 09:22 Chloride IVPB Infused DAILY [facility] Infusion Doxycycline Hyclate 100 mg/ 100 mls @ 100 mls/hr 06/27/25 03:00 06/28/25 03:08 Sodium Chloride IVPB 100 mls/hr Q12H [facility] Administration Metronidazole 500 mg in 100 mls @ 100 mls/hr 06/27/25 03:00 06/28/25 03:08 Flagyl 500 Mg/Iso Soln 100 Ml IVPB 100 mls/hr Q8H [facility] Administration Dextrose 1,000 mls @ 100 mls/hr 06/27/25 09:51 Dextrose 5% 1,000 Ml IVPB PRN PRN Hypoglycemia Protocol Albumin Human 50 mls @ 999 mls/hr 06/27/25 23:00 Albutein IVPB 07/27/25 22:59 Q10M PRN HYPOTENSION Insulin Aspart 2 - 5 units 06/27/25 11:30 06/28/25 06:25 Insulin Aspart (*Bkc) 100 Units/Ml SUB-Q Not Given ACHS [facility] Protocol Lidocaine/Prilocaine 1 each 06/28/25 06:10 Lidocaine/Prilocaine Cream 2.5-2.5% Tube TOPICAL WITH DIALYSIS PRN for dialysis Protocol Midodrine 10 mg 06/27/25 13:00 06/27/25 16:37 Midodrine Hcl 10 Mg Tablet PO 10 mg TID [facility] Administration Mirtazapine 15 mg 06/27/25 21:00 06/27/25 20:24 Mirtazapine 15 Mg Tablet PO 15 mg HS [facility] Administration Mirtazapine 7.5 mg 06/27/25 21:00 06/27/25 20:24 Mirtazapine 7.5 Mg Tablet PO 7.5 mg HS [facility] Administration Pantoprazole Sodium 40 mg 06/26/25 21:00 06/27/25 20:23 Pantoprazole Sodium Iv 40 Mg Vial IV PUSH 40 mg Q12HR [facility] Administration Senna/Docusate Sodium 1 tab 06/27/25 09:01 Senna/Docusate Sodium Tablet PO BID PRN Constipation Sertraline HCl 50 mg 06/28/25 09:00 Sertraline Hcl 50 Mg Tablet PO QAM [facility] Sevelamer Carbonate 800 mg 06/27/25 17:00 06/27/25 17:20 Sevelamer Carbonate 800 Mg Tablet PO 800 mg DAILY@1700 [facility] Administration Sodium Chloride 10 ml 06/26/25 14:00 06/27/25 13:42 Central Line Flush IV PUSH 10 ml Q8HR [facility] Administration Sodium Chloride 20 ml 06/26/25 11:46 Central Line Flush IV PUSH PRN PRN after blood draws Sodium Hypochlorite 1 applic 06/27/25 21:00 Sod Hypochlorite 1/4 Strength 473 Ml TOPICAL Q12HR [facility] Vancomycin HCl 1 each 06/27/25 13:37 Vancomycin For Hemodialysis IVPB PRN PRN Vancomycin Protocol Zinc Sulfate 220 mg 06/28/25 09:00 Zinc Sulfate [facility] Results: ITS Impressions Abdomen/Pelvis CT 06/26/25 07:59 IMPRESSION: 1. Decubitus wounds. 2. No evidence of osteomyelitis. 3. No evidence of associated abscess. 4. No acute abnormality within abdomen or pelvis. Labs Labs: Laboratory Results - last 24 hr 06/27/25 06/27/25 06/27/25 09:52 11:13 16:06 WBC RBC Hgb Hct MCV MCH MCHC RDW Plt Count MPV Immature Gran % (Auto) Neut % (Auto) Lymph % (Auto) [place] % (Auto) Eos % (Auto) Baso % (Auto) Lymph # (Auto) [place] # (Auto) Eos # (Auto) Baso # (Auto) Abs Immat Gran (auto) Absolute Neuts (auto) Absolute Nucleated RBC Band Neutrophils % Nucleated RBC % Platelet Estimate % Immature Plt Fraction Hypochromasia Basophilic Stippling Macrocytosis Tereso Cells Schistocytes Sodium Potassium Chloride Carbon Dioxide Anion Gap BUN Creatinine Estim Creat Clear Calc Estimated GFR Glucose POC Capillary Glucose 110 H 111 H 143 H Calcium Phosphorus Magnesium Total Bilirubin AST ALT Alkaline Phosphatase Total Protein Albumin Random Vancomycin 06/27/25 06/28/25 06/28/25 19:23 05:52 06:22 WBC 5.6 RBC 3.08 L Hgb 9.4 L Hct 30.7 L MCV 99.7 MCH 30.5 MCHC 30.6 L RDW 18.3 H Plt Count 88 L MPV 11.4 H Immature Gran % (Auto) 0.5 Neut % (Auto) 73.2 H Lymph % (Auto) 7.1 L [place]undy % (Auto) 15.8 H Eos % (Auto) 2.7 Baso % (Auto) 0.7 Lymph # (Auto) 0.40 L [place]undy # (Auto) 0.9 H Eos # (Auto) 0.2 Baso # (Auto) 0.0 Abs Immat Gran (auto) 0.03 Absolute Neuts (auto) 4.1 Absolute Nucleated RBC 0.000 Band Neutrophils % Not Reportable Nucleated RBC % 0.0 Platelet Estimate Decreased % Immature Plt Fraction 3.3 Hypochromasia 1+ Basophilic Stippling Occasional Macrocytosis 1+ Tereso Cells 1+ Schistocytes None seen Sodium 137 Potassium 3.1 L Chloride 98 Carbon Dioxide 30 Anion Gap 9 BUN 26 H D Creatinine 3.37 H Estim Creat Clear Calc Not Reportable Estimated GFR 19 L Glucose 113 H POC Capillary Glucose 142 H 100 Calcium 8.1 L Phosphorus 3.0 Magnesium 1.8 Total Bilirubin 0.8 AST 20 ALT 12 Alkaline Phosphatase 139 H Total Protein 6.7 Albumin 3.0 L Random Vancomycin 16.0
[2025-06-28] MEDS: MIDODRINE HCL 10 MG TABLET PO ×2 (08:41→18:21)
--- NOTE | 2025-06-28 10:25 | P.PNNP_ITS ---
Progress Note: A&P Assessment and Plan (1) ESRD (end stage renal disease): Code(s): N18.6 - End stage renal disease Status: Chronic Assessment and Plan: * HD today * continue M/W/F schedule while hospitalized * follow electrolytes, volume status, and clearance (2) Hypotension: Code(s): I95.9 - Hypotension, unspecified Status: Acute Assessment and Plan: * some degree of chronicity with regard to this issue * on midodrine as an outpatient * suspect acute worsening due to infection (sacral decubitus ulcer + pneumonia) * associated with fever, leukocytosis, altered mental status and shortness of breath on admission * initially on vasopressor therapy but weaned off * resumed on midodrine therapy (3) Decubitus ulcer: Code(s): L89.90 - Pressure ulcer of unspecified site, unspecified stage Status: Acute Assessment and Plan: * significant amount of drainage noted in association with sloughing necrotic tissue * General Surgery following with recommendations noted * to OR today for debridement * on antibiotics * local wound care (would care following) * continue supportive therapy (4) Fluid overload: Qualifiers: Hypervolemia type: other Qualified Code(s): E87.79 - Other fluid overload Code(s): E87.70 - Fluid overload, unspecified Status: Acute Assessment and Plan: * as noted by imaging on presentation * likely etiology of shortness of breath on admission * fluid removal as tolerated by hemodynamics * s/p HD on 06/25 (at outpatient dialysis center) * HD on 06/26 (in ICU) * HD today * continue fluid removal as tolerated by hemodynamics * suspect outpatient dry weight needs adjustment * follow respiratory status (5) Pneumonia: Qualifiers: Laterality: left Lung location: unspecified part of lung Pneumonia type: due to unspecified organism Qualified Code(s): J18.9 - Pneumonia, unspecified organism Code(s): J18.9 - Pneumonia, unspecified organism Status: Acute Assessment and Plan: * as suggested by admission imaging * follow culture data * on antibiotics (6) Altered mental status: Code(s): R41.82 - Altered mental status, unspecified Status: Acute Assessment and Plan: * as noted on presentation * however, back to baseline at this time * possibly due to previous shock/hypotension and ongoing infection (sacral decubitus ulcer +/- pneumonia) (7) Anemia: Code(s): D64.9 - Anemia, unspecified Status: Chronic Assessment and Plan: * due to ESRD and possibly worsened by acute illness * Epogen with HD * follow trend of H/H (8) Diabetes mellitus with multiple complications: Code(s): E11.8 - Type 2 diabetes mellitus with unspecified complications Status: Chronic Assessment and Plan: * follow Accu-Cheks * glycemic control per hospitalist Will continue to follow. L Subjective Date/time seen: 06/28/25 10:25 Interval history: Follow-up for end stage renal disease on hemodialysis. Chart reviewed -- assuming care from Dr. Almodovar; tolerating dialysis treatment at the time of my visit (seen on HD at 10:15am); no apparent distress noted when seen other than fatigue; weaned off vasopressor therapy and subsequently transferred out of ICU; noted plan for debridement of sacral decubitus ulcer in OR later this afternoon. Exam 2 Narrative: General: WD/WN male in NAD Heart: normal S1 and S2; no rub Lungs: coarse and decreased at bases Abdomen: soft, nontender, nondistended, positive bowel sounds Extremities: no cyanosis or clubbing; trace edema; s/p bilateral BKAs Skin: warm and dry Objective Data Vital Signs Vital Signs: Vital Signs Temp Pulse Resp BP Pulse Ox O2 Del Method 06/28/25 10:15 58 L 130/57 L 06/28/25 09:58 58 L 135/56 L 06/28/25 09:46 97.6 F 58 L 18 128/55 L 98 06/28/25 07:55 97.6 F 58 L 14 121/45 L 96 06/28/25 04:00 58 L 06/28/25 00:00 64 06/28/25 00:00 97.9 F 64 18 103/32 L 90 06/27/25 20:00 64 06/27/25 18:00 67 06/27/25 16:00 69 06/27/25 15:42 97.7 F 73 20 116/53 L 98 06/27/25 14:00 73 06/27/25 13:00 75 18 121/45 L 92 06/27/25 12:00 74 06/27/25 12:00 92 Room Air 06/27/25 12:00 98.0 F 75 21 H 112/56 L 91 Intake/Output Intake/Output: Intake & Output 06/25/25 06/26/25 06/27/25 06/28/25 23:59 23:59 23:59 23:59 Intake Total 737.5 1492.8 Output Total 3000 0 Balance -2262.5 1492.8 Meds/Results Medications: Active Medications Generic Name Dose Route Start Last Admin Trade Name Freq PRN Reason Stop Dose Admin Atorvastatin Calcium 40 mg 06/27/25 21:00 06/27/25 20:24 Atorvastatin 40 Mg Tablet PO 40 mg HS [facility] Administration Dextrose 12.5 gm 06/27/25 09:51 Dextrose 50% 25 Gm/50 Ml Syringe IV PUSH PRN PRN Hypoglycemia Protocol Epoetin Bradford-epbx 10,000 units 06/28/25 18:00 Epoetin Bradford-Epbx 10,000 Units/Ml Vial IV PUSH 06/28/25 18:01 ONCE ONE Ferrous Sulfate 325 mg 06/28/25 09:00 Ferrous Sulfate 325 Mg Tablet BY MOUTH DAILY [facility] Folic Acid 1 mg 06/28/25 09:00 Folic Acid 1 Mg Tablet PO DAILY [facility] Gabapentin 200 mg 06/27/25 21:00 06/27/25 20:24 Gabapentin 100 Mg Capsule PO 200 mg HS [facility] Administration Glucagon 1 mg 06/27/25 09:51 Glucagon For Inj 1 Mg Vial IM PRN PRN Hypoglycemia Protocol Glucose 15 gm 06/27/25 09:51 Glucose Oral Gel 15 Gm Of Glucse In 37.5 Gm Tube PO PRN PRN Hypoglycemia Protocol Heparin Sodium (Porcine) 5,000 units 06/26/25 21:00 06/27/25 22:45 Heparin Sodium 5,000 Units/Ml Vial SUB-Q 5,000 units Q12HR [facility] Administration Cefepime HCl 1 gm/ Sodium 50 mls @ 100 mls/hr 06/27/25 09:00 06/27/25 09:22 Chloride IVPB Infused DAILY [facility] Infusion Doxycycline Hyclate 100 mg/ 100 mls @ 100 mls/hr 06/27/25 03:00 06/28/25 03:08 Sodium Chloride IVPB 100 mls/hr Q12H [facility] Administration Metronidazole 500 mg in 100 mls @ 100 mls/hr 06/27/25 03:00 06/28/25 03:08 Flagyl 500 Mg/Iso Soln 100 Ml IVPB 100 mls/hr Q8H [facility] Administration Dextrose 1,000 mls @ 100 mls/hr 06/27/25 09:51 Dextrose 5% 1,000 Ml IVPB PRN PRN Hypoglycemia Protocol Albumin Human 50 mls @ 999 mls/hr 06/27/25 23:00 Albutein IVPB 07/27/25 22:59 Q10M PRN HYPOTENSION Vancomycin HCl 500 mg in 100 mls @ 100 mls/hr 06/28/25 15:00 Vancomycin 500 Mg/Ns 100 Ml IVPB 06/28/25 15:59 ONCE ONE Insulin Aspart 2 - 5 units 06/27/25 11:30 06/28/25 06:25 Insulin Aspart (*Bkc) 100 Units/Ml SUB-Q Not Given ACHS [facility] Protocol Lidocaine/Prilocaine 1 each 06/28/25 06:10 Lidocaine/Prilocaine Cream 2.5-2.5% Tube TOPICAL WITH DIALYSIS PRN for dialysis Protocol Midodrine 10 mg 06/27/25 13:00 06/28/25 08:41 Midodrine Hcl 10 Mg Tablet PO 10 mg TID [facility] Administration Mirtazapine 15 mg 06/27/25 21:00 06/27/25 20:24 Mirtazapine 15 Mg Tablet PO 15 mg HS [facility] Administration Mirtazapine 7.5 mg 06/27/25 21:00 06/27/25 20:24 Mirtazapine 7.5 Mg Tablet PO 7.5 mg HS [facility] Administration Pantoprazole Sodium 40 mg 06/26/25 21:00 06/27/25 20:23 Pantoprazole Sodium Iv 40 Mg Vial IV PUSH 40 mg Q12HR [facility] Administration Senna/Docusate Sodium 1 tab 06/27/25 09:01 Senna/Docusate Sodium Tablet PO BID PRN Constipation Sertraline HCl 50 mg 06/28/25 09:00 Sertraline Hcl 50 Mg Tablet PO QAM [facility] Sevelamer Carbonate 800 mg 06/27/25 17:00 06/27/25 17:20 Sevelamer Carbonate 800 Mg Tablet PO 800 mg DAILY@1700 [facility] Administration Sodium Chloride 10 ml 06/26/25 14:00 06/27/25 13:42 Central Line Flush IV PUSH 10 ml Q8HR [facility] Administration Sodium Chloride 20 ml 06/26/25 11:46 Central Line Flush IV PUSH PRN PRN after blood draws Sodium Hypochlorite 1 applic 06/27/25 21:00 Sod Hypochlorite 1/4 Strength 473 Ml TOPICAL Q12HR [facility] Vancomycin HCl 1 each 06/27/25 13:37 Vancomycin For Hemodialysis IVPB PRN PRN Vancomycin Protocol Zinc Sulfate 220 mg 06/28/25 09:00 Zinc Sulfate 220 Mg Capsule PO QAM [facility] Radiology Results: ITS Impressions Abdomen/Pelvis CT 06/26/25 07:59 IMPRESSION: 1. Decubitus wounds. 2. No evidence of osteomyelitis. 3. No evidence of associated abscess. 4. No acute abnormality within abdomen or pelvis. Chest X-Ray 06/28/25 08:20 Impression: CHF. Superimposed left lower lobe pneumonia suspected. The findings are progressed Labs Labs: Laboratory Tests 06/28/25 05:52 06/28/25 05:52 Calcium 8.1 L Phosphorus 3.0 Magnesium 1.8 Total Bilirubin 0.8 AST 20 ALT 12 Alkaline Phosphatase 139 H Total Protein 6.7 Albumin 3.0 L Random Vancomycin 16.0 Microbiology 06/26/25 06:33 Blood Blood Culture - Preliminary
--- NOTE | 2025-06-28 14:52 | PM.IMPN ---
Progress Note: A&P Assessment and Plan (1) Shock: Code(s): R57.9 - Shock, unspecified Status: Acute Assessment and Plan: Patient met SIRS criteria due to RR >20, WBC >12, +fever. Presented to [place] [facility] on 06/26 with altered mental status, hypotension, shortness of breath, and fever. Patient started on norepinephrine gtt for acute hypotension to maintain MAP >65. Shock secondary to sepsis versus cardiogenic. Given patient has history of biventricular dysfunction cardiogenic cannot be excluded, however clinical picture (fever, shortness of breath) and imaging findings concerning for pneumonia as well as the chronic decubitus ulcer more so fit the picture of sepsis. - Lactic 2.0, check procalcitonin. - IV fluids held as the patient's BNP was significantly elevated and imaging showed pulmonary edema - CXR on 06/26 showed bilateral infiltrates/pulmonary edema with possible perihilar and airspace opacity/pneumonia - started on broad-spectrum antibiotics including cefepime, vancomycin, doxycycline, and Flagyl on 06/26 to cover pneumonia and possible pathogens affecting the patient's decubitus ulcer - admission to the ICU with shaker plate operator consulted - continue norepinephrine to maintain map greater than 65 (2) Pulmonary edema: Qualifiers: Chronicity: acute Qualified Code(s): J81.0 - Acute pulmonary edema Code(s): J81.1 - Chronic pulmonary edema Status: Acute Assessment and Plan: Pulmonary edema seen on CXR. Patient has history of combined systolic/diastolic CHF. Fluid balance managed via dialysis that he receives Mondays, Wednesdays, Fridays. Has not missed any treatments and has been able to receive his full treatments. - nephrology consulted for inpatient dialysis. - shaker plate operator spoke with Nishi ROBERTSON, plan for dialysis today (06/26) - monitor oxygen saturations (3) Pneumonia: Qualifiers: Laterality: left Lung location: unspecified part of lung Pneumonia type: due to unspecified organism Qualified Code(s): J18.9 - Pneumonia, unspecified organism Code(s): J18.9 - Pneumonia, unspecified organism Status: Acute Assessment and Plan: - antibiotics initiated as above, see shock - blood cultures pending - MRSA PCR negative - antipyretic p.r.n. (4) Decubitus ulcer: Code(s): L89.90 - Pressure ulcer of unspecified site, unspecified stage Status: Acute Assessment and Plan: Patient has longstanding chronic decubitus ulcer. CT of the abdomen/pelvis showed no current complicating features including osteomyelitis or abscess. - general surgery consulted (5) ESRD (end stage renal disease) on dialysis: Code(s): N18.6 - End stage renal disease; Z99.2 - Dependence on renal dialysis Status: Acute Assessment and Plan: Patient has history of ESRD on hemodialysis. Receives treatment on Mondays, Wednesdays, Fridays. Per chart review, the patient was able to receive his full dialysis treatment yesterday (Saturday, 06/25). However the patient currently appears volume overloaded based off clinical exam and CXR findings. Dance Hall Host/Hostess spoke with truck engine assembler, plan for dialysis today. Nephrology aware patient is currently requiring norepinephrine and currently has a mild O2 requirement. - monitor electrolytes - monitor blood pressure (6) Type 2 diabetes mellitus: Qualifiers: Diabetes mellitus intermediate project manager insulin use: without mcfp use Diabetes mellitus complication status: with kidney complications Diabetes mellitus complication detail: with chronic kidney disease Chronic kidney disease stage: on chronic dialysis Qualified Code(s): E11.22 - Type 2 diabetes mellitus with diabetic chronic kidney disease; N18.6 - End stage renal disease; Z99.2 - Dependence on renal dialysis Code(s): E11.9 - Type 2 diabetes mellitus without complications Status: Chronic Assessment and Plan: History of type 2 diabetes complicated by ESRD, bilateral BKA, and diabetic neuropathy. - hypoglycemia protocol - POC blood glucose Q6H - hold home medications including Sevelamer and Tradjenta - correct regimen ordered - low dose Q6H - A1C 5.6% on 10/20/2024 (7) Anemia of chronic disease: Code(s): D63.8 - Anemia in other chronic diseases classified elsewhere Status: Chronic Assessment and Plan: Patient has history of anemia of chronic disease (ESRD). - Hgb 9.4 upon admission, at baseline - transfuse if <7 - monitor Plan patient with septic shock resulting in AMS presented to ER with hypotension most likely 2/2 sacral wound, patient is being treated with Cefepime, doxycycline, and Flagyl, patient clinical symptoms are improving and he is off the pressure and blood pressure is trending up, and his white counts are trending up, patient was seen by general surgery service and recommended, will require debridement of his sacral wound, patient and family has agreed. patient will be transferred out of ICU to IMU, will monitor, once clinically stable, will have PT/OT evaluate the patient and patient will benefit going to rehab. will monitor, patient family is present and gave updates. on 06/27 patient was moved out of ICU to medical floor, seen in the dialysis center, having HD stats feels better, he is scheduled to have debridement later today with general surgery, he remains clinically stable, will monitor. Home medications held as the patient is currently somnolent and A&O times 0. Made NPO. Resume home medications once mental status improved and when appropriate. Diet: NPO GI Prophylaxis: Pantoprazole IV DVT Prophylaxis: Heparin SQ IV fluids: none, concern for volume overload and plan for diuresis via HD Lines/Tubes: Peripheral IV Code Status: DNR, paperwork in patient's chart Subjective Date/time seen: 06/28/25 14:52 Interval history: AMS, Fever H&P-Narrative: 60 y/o M with PMH of iron deficiency anemia/anemia of chronic disease, pAFib, coronary artery disease s/p multiple stents and CABG, diabetes, ESRD on HD, CHF, and RISA not on CPAP presents here with altered mental status and fever. The patient presents here from [facility] via EMS on 06/26 for further evaluation of altered mental status fever. The patient is currently A&Ox0 and HPI was obtained through ED report and chart review. Per chart review, he was initially evaluated yesterday on 06/25 for altered mental status. Alteration was noted during his dialysis treatment, was able to receive his full dialysis treatment. Per family at that time, they reported he has been slightly more confused since starting a new pain medication. He did not receive that medication yesterday. Patient later improved during his ED evaluation and became orientated to self and place. He was discharged back to his facility with recommendations/referral for further wound care for his chronic decubitus ulcer of the sacrum. He is returning today as he has developed recurrent altered mental status and now has a fever. Upon arrival to the emergency department he was found to be febrile with a temp of 102.3? F and mildly hypotensive. Despite improvement in blood pressure, the patient remains A&Ox0. No further history or review of systems available at this time. Initial VS at presentation: 102.3? F, HR 76, R 21, 106/50, and 91% on 1L nasal cannula. Now 97% on 2 L nasal cannula. Lowest BP in the ED seen was 86/44, now on pressor. ED workup showed: WBC 13.3 9, hemoglobin 9.4 (10.9 on 06/25, at baseline), INR 1.8, sodium 136, potassium 3.4, creatinine 2.76 and GFR 23, glucose 137, lactic 2.0 H, BNP greater than 30,000, albumin 2.5. CXR showed interstitial pulmonary edema and/or pneumonitis, persistent significant bibasilar atelectasis and/or airspace disease. CT of the abdomen/pelvis showed a decubitus wound with no evidence of osteomyelitis/abscess, no acute abnormality within abdomen or pelvis. Repeat CXR post central line showed no pneumothorax and improving interstitial pulmonary edema. patient with septic shock resulting in AMS presented to ER with hypotension most likely 2/2 sacral wound, patient is being treated with Cefepime, doxycycline, and Flagyl, patient clinical symptoms are improving and he is off the pressure and blood pressure is trending up, and his white counts are trending up, patient was seen by general surgery service and recommended, will require debridement of his sacral wound, patient and family has agreed. patient will be transferred out of ICU to IMU, will monitor, once clinically stable, will have PT/OT evaluate the patient and patient will benefit going to rehab. will monitor, patient family is present and gave updates. on 06/27 patient was moved out of ICU to medical floor, seen in the dialysis center, having HD stats feels better, he is scheduled to have debridement later today with general surgery, he remains clinically stable, will monitor. Review of Systems Review of Systems: All systems reviewed & are unremarkable except as noted in HPI and below Exam Narrative: Patient is comfortable, NAD HEENT: eyes are clear and none icteric LUNGS:CTA HEART: RR S1S2 ABD: BS+, Soft and nontender Lower extremities: no edema SKIN: nonjaundiced Neuro: grossly intact. Objective Data Vital Signs Vital Signs: Vital Signs - 24 hr 06/27/25 15:42 06/27/25 16:00 06/27/25 18:00 Temperature 36.5 C Pulse Rate 73 69 67 Respiratory Rate 20 Blood Pressure 116/53 L Pulse Oximetry 98 Oxygen Delivery 06/27/25 20:00 06/28/25 00:00 06/28/25 00:00 Temperature 36.6 C Pulse Rate 64 64 64 Respiratory Rate 18 Blood Pressure 103/32 L Pulse Oximetry 90 Oxygen Delivery 06/28/25 04:00 06/28/25 07:55 06/28/25 09:46 Temperature 36.4 C 36.4 C Pulse Rate 58 L 58 L 58 L Respiratory Rate 14 18 Blood Pressure 121/45 L 128/55 L Pulse Oximetry 96 98 Oxygen Delivery 06/28/25 09:58 06/28/25 10:15 06/28/25 10:30 Temperature Pulse Rate 58 L 58 L 60 Respiratory Rate Blood Pressure 135/56 L 130/57 L 114/54 L Pulse Oximetry Oxygen Delivery 06/28/25 10:45 06/28/25 11:00 06/28/25 11:15 Temperature Pulse Rate 62 62 63 Respiratory Rate Blood Pressure 113/57 L 118/56 L 124/58 L Pulse Oximetry Oxygen Delivery 06/28/25 11:30 06/28/25 11:45 06/28/25 14:00 Temperature 37.2 C Pulse Rate 63 64 73 Respiratory Rate 16 Blood Pressure 124/56 L 118/56 L 127/53 L Pulse Oximetry 93 Oxygen Delivery Room Air Intake/Output Intake/Output: Intake & Output 06/25/25 06/26/25 06/27/25 06/28/25 23:59 23:59 23:59 23:59 Intake Total 737.5 1492.8 Output Total 3000 0 Balance -2262.5 1492.8 Meds/Results Medications: Active Medications Generic Name Dose Route Start Last Admin Trade Name Freq PRN Reason Stop Dose Admin Atorvastatin Calcium 40 mg 06/27/25 21:00 06/27/25 20:24 Atorvastatin 40 Mg Tablet PO 40 mg HS SALVADOR Administration Dextrose 12.5 gm 06/27/25 09:51 Dextrose 50% 25 Gm/50 Ml Syringe IV PUSH PRN PRN Hypoglycemia Protocol Epoetin Bradford-epbx 10,000 units 06/28/25 18:00 06/28/25 13:35 Epoetin Bradford-Epbx 10,000 Units/Ml Vial IV PUSH 06/28/25 18:01 Not Given ONCE ONE Ferrous Sulfate 325 mg 06/28/25 09:00 Ferrous Sulfate 325 Mg Tablet BY MOUTH DAILY SALVADOR Folic Acid 1 mg 06/28/25 09:00 Folic Acid 1 Mg Tablet PO DAILY SALVADOR Gabapentin 200 mg 06/27/25 21:00 06/27/25 20:24 Gabapentin 100 Mg Capsule PO 200 mg HS SALVADOR Administration Glucagon 1 mg 06/27/25 09:51 Glucagon For Inj 1 Mg Vial IM PRN PRN Hypoglycemia Protocol Glucose 15 gm 06/27/25 09:51 Glucose Oral Gel 15 Gm Of Glucse In 37.5 Gm Tube PO PRN PRN Hypoglycemia Protocol Heparin Sodium (Porcine) 5,000 units 06/26/25 21:00 06/27/25 22:45 Heparin Sodium 5,000 Units/Ml Vial SUB-Q 5,000 units Q12HR SALVADOR Administration Cefepime HCl 1 gm/ Sodium 50 mls @ 100 mls/hr 06/27/25 09:00 06/27/25 09:22 Chloride IVPB Infused DAILY SALVADOR Infusion Doxycycline Hyclate 100 mg/ 100 mls @ 100 mls/hr 06/27/25 03:00 06/28/25 03:08 Sodium Chloride IVPB 07/01/25 03:59 100 mls/hr Q12H SALVADOR Administration Metronidazole 500 mg in 100 mls @ 100 mls/hr 06/27/25 03:00 06/28/25 03:08 Flagyl 500 Mg/Iso Soln 100 Ml IVPB 100 mls/hr Q8H SALVADOR Administration Dextrose 1,000 mls @ 100 mls/hr 06/27/25 09:51 Dextrose 5% 1,000 Ml IVPB PRN PRN Hypoglycemia Protocol Albumin Human 50 mls @ 999 mls/hr 06/27/25 23:00 Albutein IVPB 07/27/25 22:59 Q10M PRN HYPOTENSION Vancomycin HCl 500 mg in 100 mls @ 100 mls/hr 06/28/25 15:00 Vancomycin 500 Mg/Ns 100 Ml IVPB 06/28/25 15:59 ONCE ONE Insulin Aspart 2 - 5 units 06/27/25 11:30 06/28/25 06:25 Insulin Aspart (*Bkc) 100 Units/Ml SUB-Q Not Given ACHS SALVADOR Protocol Lidocaine/Prilocaine 1 each 06/28/25 06:10 Lidocaine/Prilocaine Cream 2.5-2.5% Tube TOPICAL WITH DIALYSIS PRN for dialysis Protocol Midodrine 10 mg 06/27/25 13:00 06/28/25 08:41 Midodrine Hcl 10 Mg Tablet PO 10 mg TID SALVADOR Administration Mirtazapine 15 mg 06/27/25 21:00 06/27/25 20:24 Mirtazapine 15 Mg Tablet PO 15 mg HS SALVADOR Administration Mirtazapine 7.5 mg 06/27/25 21:00 06/27/25 20:24 Mirtazapine 7.5 Mg Tablet PO 7.5 mg HS SALVADOR Administration Pantoprazole Sodium 40 mg 06/26/25 21:00 06/27/25 20:23 Pantoprazole Sodium Iv 40 Mg Vial IV PUSH 40 mg Q12HR SALVADOR Administration Senna/Docusate Sodium 1 tab 06/27/25 09:01 Senna/Docusate Sodium Tablet PO BID PRN Constipation Sertraline HCl 50 mg 06/28/25 09:00 Sertraline Hcl 50 Mg Tablet PO QAM [facility] Sevelamer Carbonate 800 mg 06/27/25 17:00 06/27/25 17:20 Sevelamer Carbonate 800 Mg Tablet PO 800 mg DAILY@1700 SALVADOR Administration Sodium Chloride 10 ml 06/26/25 14:00 06/27/25 13:42 Central Line Flush IV PUSH 10 ml Q8HR SALVADOR Administration Sodium Chloride 20 ml 06/26/25 11:46 Central Line Flush IV PUSH PRN PRN after blood draws Sodium Hypochlorite 1 applic 06/27/25 21:00 Sod Hypochlorite 1/4 Strength 473 Ml TOPICAL Q12HR [facility] Vancomycin HCl 1 each 06/27/25 13:37 Vancomycin For Hemodialysis IVPB PRN PRN Vancomycin Protocol Zinc Sulfate 220 mg 06/28/25 09:00 Zinc Sulfate 220 Mg Capsule PO QAM [facility] Radiology Results: ITS Impressions Abdomen/Pelvis CT 06/26/25 07:59 IMPRESSION: 1. Decubitus wounds. 2. No evidence of osteomyelitis. 3. No evidence of associated abscess. 4. No acute abnormality within abdomen or pelvis. Chest X-Ray 06/28/25 08:20 Impression: CHF. Superimposed left lower lobe pneumonia suspected. The findings are progressed Labs Labs: Laboratory Results - last 24 hr 06/27/25 06/27/25 06/28/25 16:06 19:23 05:52 WBC 5.6 RBC 3.08 L Hgb 9.4 L Hct 30.7 L MCV 99.7 MCH 30.5 MCHC 30.6 L RDW 18.3 H Plt Count 88 L MPV 11.4 H Immature Gran % (Auto) 0.5 Neut % (Auto) 73.2 H Lymph % (Auto) 7.1 L [place] % (Auto) 15.8 H Eos % (Auto) 2.7 Baso % (Auto) 0.7 Lymph # (Auto) 0.40 L [place] # (Auto) 0.9 H Eos # (Auto) 0.2 Baso # (Auto) 0.0 Abs Immat Gran (auto) 0.03 Absolute Neuts (auto) 4.1 Absolute Nucleated RBC 0.000 Band Neutrophils % Not Reportable Nucleated RBC % 0.0 Platelet Estimate Decreased % Immature Plt Fraction 3.3 Hypochromasia 1+ Basophilic Stippling Occasional Macrocytosis 1+ Teres[place] Cells 1+ Schistocytes None seen Sodium 137 Potassium 3.1 L Chloride 98 Carbon Dioxide 30 Anion Gap 9 BUN 26 H D Creatinine 3.37 H Estim Creat Clear Calc Not Reportable Estimated GFR 19 L Glucose 113 H POC Capillary Glucose 143 H 142 H Calcium 8.1 L Phosphorus 3.0 Magnesium 1.8 Total Bilirubin 0.8 AST 20 ALT 12 Alkaline Phosphatase 139 H Total Protein 6.7 Albumin 3.0 L Random Vancomycin 16.0 06/28/25 06/28/25 06/28/25 06:22 07:38 14:37 WBC RBC Hgb Hct MCV MCH MCHC RDW Plt Count MPV Immature Gran % (Auto) Neut % (Auto) Lymph % (Auto) [place] % (Auto) Eos % (Auto) Baso % (Auto) Lymph # (Auto) [place] # (Auto) Eos # (Auto) Baso # (Auto) Abs Immat Gran (auto) Absolute Neuts (auto) Absolute Nucleated RBC Band Neutrophils % Nucleated RBC % Platelet Estimate % Immature Plt Fraction Hypochromasia Basophilic Stippling Macrocytosis [place] Cells Schistocytes Sodium Potassium Chloride Carbon Dioxide Anion Gap BUN Creatinine Estim Creat Clear Calc Estimated GFR Glucose POC Capillary Glucose 100 98 100 Calcium Phosphorus Magnesium Total Bilirubin AST ALT Alkaline Phosphatase Total Protein Albumin Random Vancomycin Quality VTE Prophylaxis VTE prophylaxis: pharmacologic ordered
--- NOTE | 2025-06-28 14:57 | WPDHPUPDATE1 ---
History and Physical Update Update Date/Time: 06/28/25 14:57 History and Physical has been reviewed, including an updated exam of the patient. There are NO changes in the patient's condition. Risks, benefits, and alternatives have been discussed and questions answered. Patient agrees to proceed with procedure.
[2025-06-28] MEDS: VANCOMYCIN 500 MG/NS 100 ML 500 MG/100 ML BAG 100 MG IVPB (15:00)
[2025-06-28] MEDS: SODIUM CHLORIDE 0.9% IV 500 ML 30 ML IV CONT (15:00)
--- NOTE | 2025-06-28 15:06 | WPDANESEPPF ---
Anes - Initial Pre Proc Eval Procedure: Operation Date: 06/28/25 15:00 Proposed Procedures p Debridement Sacral Decubitus Ulcer - Jeremias Little DO Date/Time: 06/28/25 15:06 Surgeon: Amaury Espniosa MD Pre Op Diagnosis: sepltic shock decub ulcer HD pt Patient Data Age: 60 Gender: M Height: 1.42 m Weight: 73.6 kg Last Vital Signs Temp 99 F 06/28/25 14:00 Pulse 73 06/28/25 14:00 Resp 16 06/28/25 14:00 BP 127/53 L 06/28/25 14:00 Pulse Ox 93 06/28/25 14:00 O2 Del Method Room Air 06/28/25 14:00 O2 Flow Rate 1 06/27/25 04:00 Allergies Allergy/AdvReac Type Severity Reaction Status Date / Time Penicillins Allergy Unknown Unknown Verified 06/26/25 18:17 bee venom protein (honey bee) Allergy Swelling Verified 06/26/25 18:17 Home Medications ?Medication ?Instructions ?Recorded ?Confirmed ?Type ferrous sulfate 325 mg (65 mg 325 mg PO DAILY 06/01/20 06/26/25 History iron) tablet nitroglycerin 0.4 mg sublingual 0.4 mg sublingual Q5-15M PRN Chest 06/01/20 06/26/25 History tablet Pain atorvastatin 40 mg tablet (Lipitor) 40 mg PO HS 12/23/20 06/26/25 History folic acid 1 mg tablet 1 mg PO DAILY 12/23/20 06/26/25 History gabapentin 100 mg tablet 200 mg PO HS 12/23/20 06/26/25 History sevelamer carbonate 800 mg tablet 800 mg PO DAILY@1700 12/23/20 06/26/25 History tamsulosin 0.4 mg capsule (Flomax) 0.4 mg PO DAILY 12/23/20 06/26/25 History linagliptin 5 mg tablet (Tradjenta) 5 mg PO DAILY 01/13/23 06/26/25 History mirtazapine 15 mg tablet 15 mg PO HS 01/13/23 06/26/25 History sertraline 50 mg tablet 50 mg PO QAM 01/13/23 06/26/25 History midodrine 10 mg tablet 10 mg PO BID 09/17/23 06/26/25 History acetaminophen 325 mg tablet 650 mg PO Q6H PRN Pain (Scale 10/29/23 06/26/25 History (Tylenol) Score 1-3) naloxone 4 mg/actuation nasal spray 1 spray intranasal Q3M PRN Opioid 10/29/23 06/26/25 History Overdose sennosides 8.6 mg-docusate sodium 1 tablet PO BID PRN Constipation 10/29/23 06/26/25 History 50 mg tablet (Senna Plus) diphenoxylate-atropine 2.5 2 tablet PO TID PRN Diarrhea #15 03/06/24 06/26/25 Rx mg-0.025 mg tablet (Lomotil) tabs tramadol 50 mg tablet 50 mg PO Q4H PRN Pain (Scale Score 03/06/24 06/26/25 Rx 4-6) #15 tabs ascorbic acid (vitamin C) 500 mg 500 mg PO Q12H 03/10/25 06/26/25 History tablet famotidine 20 mg tablet 20 mg PO Q12H 03/10/25 06/26/25 History mirtazapine 7.5 mg tablet 7.5 mg PO HS 03/10/25 06/26/25 History tizanidine 2 mg tablet 2 mg PO Q12H 03/10/25 06/26/25 History vitamin B complex-vitamin C-folic 1 tablet PO DAILY 03/10/25 06/26/25 History acid 0.8 mg tablet (Nephro-[place]) zinc sulfate 220 mg capsule 220 mg PO DAILY 03/10/25 06/26/25 History aspirin 325 mg tablet,delayed 325 mg PO QAM #30 tabs 03/17/25 06/26/25 Rx release collagenase clostridium histo. 250 1 applic topical DAILY 06/26/25 06/26/25 History unit/gram topical ointment (Santyl) tizanidine 2 mg tablet 2 mg PO TID 06/26/25 06/26/25 History Laboratory Tests 06/27/25 06/27/25 06/28/25 16:06 19:23 05:52 WBC 5.6 K/mm3 (4.5-10.0) RBC 3.08 L M/mm3 (4.6-6.20) Hgb 9.4 L g/dL (14.0-18.0) Hct 30.7 L % (42.0-52.0) MCV 99.7 fl (80-100) MCH 30.5 pg (26-34) MCHC 30.6 L g/dl (32-36) RDW 18.3 H % (11.5-14.5) Plt Count 88 L k/mm3 (150-375) MPV 11.4 H fl (7.4-10.4) Immature Gran % (Auto) 0.5 % (0-0.5) Neut % (Auto) 73.2 H % (45.5-73.1) Lymph % (Auto) 7.1 L % (18.3-44.2) [place] % (Auto) 15.8 H % (2.6-8.5) Eos % (Auto) 2.7 % (0-4.4) Baso % (Auto) 0.7 % (0.2-1.2) Lymph # (Auto) 0.40 L K/mm3 (0.9-3.2) [place] # (Auto) 0.9 H K/mm3 (0.1-0.6) Eos # (Auto) 0.2 K/mm3 (0-0.3) Baso # (Auto) 0.0 K/mm3 (0.0-0.1) Abs Immat Gran (auto) 0.03 K/mm3 (0.00-0.031) Absolute Neuts (auto) 4.1 K/mm3 (1.3-6.7) Absolute Nucleated RBC 0.000 K/mm3 (0.0-0.012) Band Neutrophils % Not Reportable Nucleated RBC % 0.0 % (0.0-0.2) Platelet Estimate Decreased (Adequate) % Immature Plt Fraction 3.3 % (0.9-11.2) Hypochromasia 1+ Basophilic Stippling Occasional Macrocytosis 1+ (NORMAL) [place] Cells 1+ Schistocytes None seen Sodium 137 mmol/L (137-145) Potassium 3.1 L mmol/L (3.4-5.0) Chloride 98 mmol/L (98-107) Carbon Dioxide 30 mmol/L (22-30) Anion Gap 9 mmol/L (4-12) BUN 26 H D mg/dL (9-20) Creatinine 3.37 H mg/dL (0.7-1.3) Estim Creat Clear Calc Not Reportable Estimated GFR 19 L (59 - ) Glucose 113 H mg/dL (65-110) POC Capillary Glucose 143 H mg/dl 142 H mg/dl (65-105) (65-105) Calcium 8.1 L mg/dL (8.4-10.2) Phosphorus 3.0 mg/dL (2.5-4.5) Magnesium 1.8 mg/dL (1.6-2.3) Total Bilirubin 0.8 mg/dL (0.2-1.3) AST 20 U/L (17-59) ALT 12 U/L (6-50) Alkaline Phosphatase 139 H U/L (38-126) Total Protein 6.7 g/dL (6.3-8.2) Albumin 3.0 L g/dL (3.5-5.1) Random Vancomycin 16.0 ug/mL (10-20) 06/28/25 06/28/25 06/28/25 06:22 07:38 14:37 WBC RBC Hgb Hct MCV MCH MCHC RDW Plt Count MPV Immature Gran % (Auto) Neut % (Auto) Lymph % (Auto) [place] % (Auto) Eos % (Auto) Baso % (Auto) Lymph # (Auto) [place] # (Auto) Eos # (Auto) Baso # (Auto) Abs Immat Gran (auto) Absolute Neuts (auto) Absolute Nucleated RBC Band Neutrophils % Nucleated RBC % Platelet Estimate % Immature Plt Fraction Hypochromasia Basophilic Stippling Macrocytosis [place] Cells Schistocytes Sodium Potassium Chloride Carbon Dioxide Anion Gap BUN Creatinine Estim Creat Clear Calc Estimated GFR Glucose POC Capillary Glucose 100 mg/dl 98 mg/dl 100 mg/dl (65-105) (65-105) (65-105) Calcium Phosphorus Magnesium Total Bilirubin AST ALT Alkaline Phosphatase Total Protein Albumin Random Vancomycin Patient hx anesthesia problems: none Family hx anesthesia problems: none Results Review: All pre-operative results and documents have been reviewed as part of the pre-operative evaluation. [facility] Past Medical History Medical History Type 2 diabetes mellitus COPD (chronic obstructive pulmonary disease) Intracardiac thrombus PVD (peripheral vascular disease) Coronary artery disease History of multiple stents and 4 vessel bypass. Combined systolic and diastolic congestive heart failure Iron deficiency anemia MRSA infection Clostridium difficile diarrhea Paroxysmal atrial fibrillation Transient atrial fibrillation following bypass surgery. Hyperlipidemia End-stage renal disease on hemodialysis Anxiety and depression Obstructive sleep apnea does not use a CPAP Anemia of chronic disease Diabetic nephropathy Diabetic peripheral neuropathy Arthritis Surgical History Surgical History History of right below knee amputation History of five vessel coronary artery bypass (2018) [facility] History of cataract extraction with lens replacement History of coronary artery stent placement History of cardiac catheterization History of left below knee amputation History of amputation of toe left 5th toe 2013 small toe on the right amputated Family History Family History Sibling Patient's sister is Diabetes mellitus Sister Acute myocardial infarction Three brothers and 2 sisters History of blood clots Sister Abdominal aortic aneurysm Sister Dementia Brother COPD (chronic obstructive pulmonary disease) Brother Father Acute myocardial infarction, Onset Age: 65 Mother History of blood clots Hypertension, Onset Age: 80 Social History Social History Social History: Surrogate medical decision maker: Melodie Roca (niece) or Alejandra Murray (sister). Code status: DNR/DNI Smoking packs per day: 0.25 Smoking cigarettes per day: 5.0 Years smoked: 30 Smoking pack-years: 7.50 Smoking status: Former smoker Alcohol intake: never Drinks per week: 2 Alcohol use details: Social alcohol use. Substance use: never Substance use type: does not use Last use: 2019 Do You Feel Safe in your Home?: Yes Lack of Transportation: No Lack of Food: Never True Current Housing: I Have Housing Concerned About Future Housing: No Difficulty Paying Gas/Electric Bills: No Difficulty Paying for Meds: No Currently Unemployed: No Education: Don't Know Difficulty w/ Childcare or Family Care: No Additional living arrangements comments: [facility]. Additional occupation/education comments: Disabled. Spiritual care concerns: No Anes - Eval Final PreProcedure Day of Procedure 06/28/25 15:06 Patient weight: obese Lungs: normal air movement Airway: Mallampati scale class II and special considerations (Teeth in very poor condition. ) Neurological: alert and oriented Last oral intake: >/= 8 hours ASA classification: IV Emergent: no Anesthetic plan: proceed Anesthesia type and monitoring: general LMA and standard monitoring Results Review: All pre-operative results and documents have been reviewed as part of the pre-operative evaluation. Complicated pt, ESRD just finished HD, Hyperlipidemia, now for sacral decub. 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 Informed Consent: The patient's anesthetic plan and its attendant risks and benefits were discussed with the patient/family/POA. Questions were solicited and answers provided to the satisfaction of the patient/family/POA.
[2025-06-28] MEDS: BUPIVACAINE/EPINEPHRINE 0.5% 50 ML VIAL 30 ML INFILTRATE (15:32)
--- NOTE | 2025-06-28 15:57 | P.OP_ITS ---
Procedure Note - Detailed Date of Procedure 06/28/25 <Jones Jason Tello, DO - Last Filed: 06/28/25 16:08> 06/29/25 <Jeremias Little, DO - Last Filed: 06/29/25 13:36> Pre-op Diagnosis Stage IV Sacral decubitus ulcer Sepsis Septic shock CHF ESRD <Jones Tello, DO - Last Filed: 06/28/25 16:08> Post-op Diagnosis Same <Jones Tello, DO - Last Filed: 06/28/25 16:08> Procedure Performed Debridement of sacral decubitus ulcer down to bone <Jones Tello, DO - Last Filed: 06/28/25 16:08> Sharp excisional debridement of sacral decubitus ulcer including skin, subcutaneous fat, muscle, and fascia measuring 6 cm x 7 cm <Jeremias Little, DO - Last Filed: 06/29/25 13:36> Surgeon Jeremias Little DO <Jones LatoyaMagaly Tello, DO - Last Filed: 06/28/25 16:08> Clinical Science Liaison Jones Tello DO <Jones Tello, DO - Last Filed: 06/28/25 16:08> Anesthesia MAC <Jones Tello DO - Last Filed: 06/28/25 16:08> Indications Patient is a 60-year-old male who initially presented to the hospital with altered mental status, sepsis, shock and a sacral decubitus ulcer that appeared grossly infected and necrotic down to bone. The patient was treated in the ICU with IV antibiotics and resuscitative efforts. The patient was weaned off of pressors, his WBC trended down, and he was placed in Dakin soaks on his sacral decubitus ulcer prior to surgery. Given the extensive necrosis and infected appearing tissue, the decision was made to proceed to the operating room for debridement of sacral decubitus ulcer. <Jones Gomez Tello, DO - Last Filed: 06/28/25 16:08> Findings Sacral decubitus ulcer down to bone, grossly infected <Jones Tello, DO - Last Filed: 06/28/25 16:08> Description of Procedure After informed consent was obtained discussing the risks, benefits, and alternatives with the patient and the patient's DPOA, all expressed understanding and wished to proceed with the procedure. The patient is transferred to the operating room and anesthesia was induced on the patient's hospital bed. The patient was carefully transferred to the operating table and positioned in the right lateral decubitus position. Safety straps were applied, the patient had previous bilateral BKAs and therefore SCDs were not applied. Preoperative antibiotics were administered. The patient was prepped and draped in usual sterile fashion. A time-out was performed confirming the correct patient, correct site, and correct procedure and all were in agreement. I began by sharply debriding the necrotic wound edges sharply using curved Romo's and a 10 blade scalpel. This was debrided back to healthy tissue. There was tunneling in the cephalad and lateral directions of the wound. Areas that were able to be debrided sharply with curved Romo's and a scalpel were done so. The debridement did go all the way down to sacrum. A curette was used debride the tissue further. Once all infected appearing tissue that was able to be debrided was removed, the wound was copiously irrigated with sterile saline. Hemostasis was achieved using electrocautery. The final wound measurements were 6 cm x 7 cm x 2 cm down to and including bone. There was 2 cm of tunneling on the cephalad and lateral portions of the wound. The wound was tightly packed with Betadine soaked Kerlix and dressed with gauze, ABD, and Medipore tape. The patient tolerated the procedure well and was transferred to PACU in stable condition. Dr. Little was present for and directed the entirety of the procedure <Jones E. Tello, DO - Last Filed: 06/28/25 16:08> Implants None <Jones E. Tello, DO - Last Filed: 06/28/25 16:08> Estimated Blood Loss 20 <Jones E. Tello, DO - Last Filed: 06/28/25 16:08> Urine Output 0 <Jones E. Tello, DO - Last Filed: 06/28/25 16:08> Packing Yes (Betadine-soaked 4 in Kerlix wrap) <Jeremias Little, DO - Last Filed: 06/29/25 13:36> Complications None <Jones E. Tello, DO - Last Filed: 06/28/25 16:08> Condition Stable <Jones E. Tello, DO - Last Filed: 06/28/25 16:08> Disposition PACU <Jones Tello, DO - Last Filed: 06/28/25 16:08> [facility] Billing Surgery - Charge Forward: Surgery Billing <Jeremias Little DO - Last Filed: 06/29/25 13:36>
[2025-06-28] MEDS: fentaNYL CITRATE INJ (*CRX) 100 MCG/2 ML VIAL 25 MCG IV PUSH (16:34)
[2025-06-28] MEDS: CEFEPIME 1 GM in SODIUM CHLORIDE 0.9% IV 50 ML 100 ML IVPB (18:19)
[2025-06-28] MEDS: FERROUS SULFATE 325 MG TABLET BY MOUTH (18:20)
[2025-06-28] MEDS: FOLIC ACID 1 MG TABLET PO (18:20)
[2025-06-28] MEDS: SERTRALINE HCL 50 MG TABLET PO (18:20)
[2025-06-28] MEDS: SEVELAMER CARBONATE 800 MG TABLET PO (18:21)
--- NOTE | 2025-06-28 23:30 | PC.NURSE ---
Addendum entered by Jess Long RN 06/29/25 04:19: 0410: sacral wound dressing WDL. Pt communicating better and able to reorient Addendum entered by Jess Long RN 06/29/25 01:31: 0100: Pt agreed to put back his NA, on 2L, pulled IV 0110: New IV placed; IV abx administered early to make blanquita pt gets the dose. Original Note: 1999: Pt alert and oriented X1; refusing care, assessment,and medications. removed telemetry box and Nasal Canula; Unable to redirect. 2100:tried to explain the medications and assessment indications, and the importance of getting the telemetry box and NC back. Pt refused, impulsive and aggressive towards staff 2150: contacted hospitalist regarding pt's behavior; continue to monitor pt closely 2334: Pt still refusing care, bed alarm on, door open, monitoring pt closely
[2025-06-29] VITALS (9 sets, daily range): BP systolic 113–132; BP diastolic 45–54; PULSE 60–81; RESP 16–18; TEMP 36.2–36.8; O2SAT 92–95; BMI 33.3
[2025-06-29] MEDS: metroNIDAZOLE 500 MG/ISO 100ML 500 MG/100 ML BAG 100 MG IVPB ×2 (01:19→11:35)
[2025-06-29] MEDS: DOXYCYCLINE IV 100 MG in SODIUM CHLORIDE 0.9% IV 100 ML IVPB (01:19)
[2025-06-29 04:51] LABS: Hematocrit 31.9 % (42.0-52.0); Hemoglobin 9.7 g/dL (14.0-18.0); Immature Platelet Fraction Pct 3.9 % (0.9-11.2); Mean Corpuscular HGB Conc 30.4 g/dl (32-36); Mean Corpuscular Hemoglobin 31.0 pg (26-34); Mean Corpuscular Volume 101.9 fl (80-100); Platelet Count Result 103 k/mm3 (150-375); Red Blood Count 3.13 M/mm3 (4.6-6.20); White Blood Count 5.8 K/mm3 (4.5-10.0)
[2025-06-29 05:22] LABS: Albumin Level 3.2 g/dL (3.5-5.1); Anion Gap 10 mmol/L (4-12); Blood Urea Nitrogen 17 mg/dL (9-20); Calcium 8.2 mg/dL (8.4-10.2); Carbon Dioxide 27 mmol/L (22-30); Chloride 103 mmol/L (98-107); Estimated Glomerular Filt Rate 24; Glucose 120 mg/dL (65-110); Magnesium 2.0 mg/dL (1.6-2.3); Potassium 3.5 mmol/L (3.4-5.0); Sodium 140 mmol/L (137-145)
--- NOTE | 2025-06-29 07:20 | P.PNGS_ITS ---
Progress Note: A&P Assessment and Plan (1) Decubitus ulcer: Qualifiers: Pressure injury location: sacral region Pressure injury stage: stage 4 Qualified Code(s): L89.154 - Pressure ulcer of sacral region, stage 4 Code(s): L89.90 - Pressure ulcer of unspecified site, unspecified stage Status: Acute (2) Type 2 diabetes mellitus: Qualifiers: Chronic kidney disease stage: on chronic dialysis Diabetes mellitus complication detail: with chronic kidney disease Diabetes mellitus complication status: with kidney complications Diabetes mellitus chcf insulin use: without chcf use Qualified Code(s): E11.22 - Type 2 diabetes mellitus with diabetic chronic kidney disease; N18.6 - End stage renal disease; Z99.2 - Dependence on renal dialysis Code(s): E11.9 - Type 2 diabetes mellitus without complications Status: Chronic (3) Septic shock: Code(s): A41.9 - Sepsis, unspecified organism; R65.21 - Severe sepsis with septic shock Status: Acute (4) Pulmonary edema: Qualifiers: Chronicity: acute Qualified Code(s): J81.0 - Acute pulmonary edema Code(s): J81.1 - Chronic pulmonary edema Status: Acute (5) Acute hypoxemic respiratory failure: Code(s): J96.01 - Acute respiratory failure with hypoxia Status: Acute (6) Paroxysmal atrial fibrillation: Code(s): I48.0 - Paroxysmal atrial fibrillation Status: Acute (7) ESRD (end stage renal disease) on dialysis: Code(s): N18.6 - End stage renal disease; Z99.2 - Dependence on renal dialysis Status: Acute (8) Acute exacerbation of CHF (congestive heart failure): Code(s): I50.9 - Heart failure, unspecified Status: Acute Plan General surgery consulted to evaluate decubitus ulcer. On initial presentation, patient did appear septic vs CHF exacerbation, likely combination of both. Patient's clinical status has improved with plans to wean off of Levophed and restart the patient's home midodrine. Leukocytosis is improving. Patient does have a significant amount of drainage from his sacral decubitus ulcer as well as necrotic tissue that is sloughing. I discussed with the patient that he would likely require surgical debridement. I discussed that in order to heal this wound, the patient will need routine offloading, he may require further surgical interventions, possible wound VAC therapy, and prolonged wound care. I discussed that in some instances if the patient does continue to have a chronic wound that becomes infected secondary to stooling that some patients ultimately require stool diversion. the patient was awake, alert, and oriented during our discussion. He expressed understanding and all questions were answered. He agrees that he would like to undergo surgical intervention. -POD#1 s/p sacral decubitus ulcer debridement. -wound hemostatic, currently in betadine soaks Plan - continue ABX - Wound care consult, continue Dakin's moistened kerlix on wound postoperatively - remainder cares per primary team and consultants - surgery will follow A&P discussed with Dr. Little Subjective Subjective Date/Time Seen: 06/29/25 07:20 Interval history: NAEON. POD#1 s/p sacral decubitus ulcer. Wound examined, hemostatic, betadine soaks remain in place. Will switch to Dakin's soaks today. Hgb stable, VSS. Review of Systems Review of Systems: All systems reviewed & are unremarkable except as noted in HPI and below Exam Narrative: General: Awake, alert, no acute distress HEENT: NC/AT, EOMI, right-sided exotropia neck: Fullness in left neck near central line placement, hemostatic, not expanding heart: Regular rate, HDS, off pressors lungs: Symmetric expansion, no IWOB, on supplemental oxygen via nasal cannula abdomen: Soft, NTTP, ND, nonperitoneal extremities: stage IV sacral decubitus ulcer down to bone, s/p debridement, betadine soaks in place, hemostatic; bilateral BKA Objective Data Vital Signs Vital Signs: Vital Signs - 24 hr 06/28/25 07:55 06/28/25 08:00 06/28/25 09:46 Temperature 97.6 F 97.6 F Pulse Rate 58 L 60 58 L Respiratory Rate 14 18 Blood Pressure 121/45 L 128/55 L Pulse Oximetry 96 98 Oxygen Delivery Oxygen Flow Rate 06/28/25 09:58 06/28/25 10:15 06/28/25 10:30 Temperature Pulse Rate 58 L 58 L 60 Respiratory Rate Blood Pressure 135/56 L 130/57 L 114/54 L Pulse Oximetry Oxygen Delivery Oxygen Flow Rate 06/28/25 10:45 06/28/25 11:00 06/28/25 11:15 Temperature Pulse Rate 62 62 63 Respiratory Rate Blood Pressure 113/57 L 118/56 L 124/58 L Pulse Oximetry Oxygen Delivery Oxygen Flow Rate 06/28/25 11:30 06/28/25 11:45 06/28/25 12:00 Temperature Pulse Rate 63 64 65 Respiratory Rate Blood Pressure 124/56 L 118/56 L 117/50 L Pulse Oximetry Oxygen Delivery Oxygen Flow Rate 06/28/25 12:00 06/28/25 12:15 06/28/25 12:30 Temperature Pulse Rate 65 67 76 Respiratory Rate Blood Pressure 110/44 L 103/55 L Pulse Oximetry Oxygen Delivery Oxygen Flow Rate 06/28/25 12:45 06/28/25 12:55 06/28/25 13:01 Temperature 97.7 F Pulse Rate 67 72 73 Respiratory Rate 15 Blood Pressure 103/65 116/71 101/48 L Pulse Oximetry 99 Oxygen Delivery Oxygen Flow Rate 06/28/25 14:00 06/28/25 15:58 06/28/25 16:10 Temperature 99 F 97.6 F Pulse Rate 73 75 78 Respiratory Rate 16 12 16 Blood Pressure 127/53 L 118/47 L 86/49 L Pulse Oximetry 93 100 100 Oxygen Delivery Room Air Simple Face Mask Room Air Oxygen Flow Rate 6 06/28/25 16:25 06/28/25 16:40 06/28/25 16:55 Temperature Pulse Rate 73 70 71 Respiratory Rate 18 18 18 Blood Pressure 85/34 L 90/33 L Pulse Oximetry 93 96 100 Oxygen Delivery Room Air Nasal Cannula Nasal Cannula Oxygen Flow Rate 2 2 06/28/25 17:10 06/28/25 17:25 06/28/25 17:43 Temperature 96.9 F L 97.0 F L Pulse Rate 71 71 76 Respiratory Rate 18 16 14 Blood Pressure 92/52 L 92/48 L 94/65 L Pulse Oximetry 100 100 99 Oxygen Delivery Nasal Cannula Nasal Cannula Oxygen Flow Rate 2 2 06/28/25 18:04 06/28/25 18:38 06/28/25 20:00 Temperature 96.6 F L 96.4 F L Pulse Rate 86 75 72 Respiratory Rate 15 16 Blood Pressure 95/45 L 101/77 Pulse Oximetry 99 100 Oxygen Delivery Oxygen Flow Rate 06/28/25 20:33 06/29/25 05:22 Temperature 97.9 F 97.9 F Pulse Rate 73 65 Respiratory Rate 18 18 Blood Pressure 102/39 L 132/48 L Pulse Oximetry 92 94 Oxygen Delivery Oxygen Flow Rate Intake/Output Intake/Output: Intake & Output 06/26/25 06/27/25 06/28/25 06/29/25 23:59 23:59 23:59 23:59 Intake Total 737.5 1492.8 600 200 Output Total 3000 0 1989 Balance -2262.5 1492.8 -1390 200 Meds/Results Medications: Active Medications Generic Name Dose Route Start Last Admin Trade Name Freq PRN Reason Stop Dose Admin Atorvastatin Calcium 40 mg 06/27/25 21:00 06/28/25 23:35 Atorvastatin 40 Mg Tablet PO Not Given HS [facility] Dextrose 12.5 gm 06/27/25 09:51 Dextrose 50% 25 Gm/50 Ml Syringe IV PUSH PRN PRN Hypoglycemia Protocol Ferrous Sulfate 325 mg 06/28/25 09:00 06/28/25 18:20 Ferrous Sulfate 325 Mg Tablet BY MOUTH 325 mg DAILY [facility] Administration Folic Acid 1 mg 06/28/25 09:00 06/28/25 18:20 Folic Acid 1 Mg Tablet PO 1 mg DAILY [facility] Administration Gabapentin 200 mg 06/27/25 21:00 06/28/25 23:36 Gabapentin 100 Mg Capsule PO Not Given HS [facility] Glucagon 1 mg 06/27/25 09:51 Glucagon For Inj 1 Mg Vial IM PRN PRN Hypoglycemia Protocol Glucose 15 gm 06/27/25 09:51 Glucose Oral Gel 15 Gm Of Glucse In 37.5 Gm Tube PO PRN PRN Hypoglycemia Protocol Heparin Sodium (Porcine) 5,000 units 06/26/25 21:00 06/28/25 23:36 Heparin Sodium 5,000 Units/Ml Vial SUB-Q Not Given Q12HR [facility] Cefepime HCl 1 gm/ Sodium 50 mls @ 100 mls/hr 06/27/25 09:00 06/28/25 18:19 Chloride IVPB 100 mls/hr DAILY [facility] Administration Doxycycline Hyclate 100 mg/ 100 mls @ 100 mls/hr 06/27/25 03:00 06/29/25 01:19 Sodium Chloride IVPB 07/01/25 03:59 100 mls/hr Q12H [facility] Administration Metronidazole 500 mg in 100 mls @ 100 mls/hr 06/27/25 03:00 06/29/25 01:19 Flagyl 500 Mg/Iso Soln 100 Ml IVPB 100 mls/hr Q8H [facility] Administration Dextrose 1,000 mls @ 100 mls/hr 06/27/25 09:51 Dextrose 5% 1,000 Ml IVPB PRN PRN Hypoglycemia Protocol Albumin Human 50 mls @ 999 mls/hr 06/27/25 23:00 Albutein IVPB 07/27/25 22:59 Q10M PRN HYPOTENSION Insulin Aspart 2 - 5 units 06/27/25 11:30 06/28/25 23:40 Insulin Aspart (*Bkc) 100 Units/Ml SUB-Q Not Given ACHS [facility] Protocol Lidocaine/Prilocaine 1 each 06/28/25 06:10 Lidocaine/Prilocaine Cream 2.5-2.5% Tube TOPICAL WITH DIALYSIS PRN for dialysis Protocol Midodrine 10 mg 06/27/25 13:00 06/28/25 18:21 Midodrine Hcl 10 Mg Tablet PO 10 mg TID [facility] Administration Mirtazapine 15 mg 06/27/25 21:00 06/28/25 23:36 Mirtazapine 15 Mg Tablet PO Not Given HS [facility] Mirtazapine 7.5 mg 06/27/25 21:00 06/28/25 23:37 Mirtazapine 7.5 Mg Tablet PO Not Given HS [facility] Pantoprazole Sodium 40 mg 06/26/25 21:00 06/28/25 23:37 Pantoprazole Sodium Iv 40 Mg Vial IV PUSH Not Given Q12HR [facility] Senna/Docusate Sodium 1 tab 06/27/25 09:01 Senna/Docusate Sodium Tablet PO BID PRN Constipation Sertraline HCl 50 mg 06/28/25 09:00 06/28/25 18:20 Sertraline Hcl 50 Mg Tablet PO 50 mg QAM [facility] Administration Sevelamer Carbonate 800 mg 06/27/25 17:00 06/28/25 18:21 Sevelamer Carbonate 800 Mg Tablet PO 800 mg DAILY@1700 [facility] Administration Sodium Chloride 10 ml 06/26/25 14:00 06/27/25 13:42 Central Line Flush IV PUSH 10 ml Q8HR [facility] Administration Sodium Chloride 20 ml 06/26/25 11:46 Central Line Flush IV PUSH PRN PRN after blood draws Sodium Hypochlorite 1 applic 06/27/25 21:00 Sod Hypochlorite 1/4 Strength 473 Ml TOPICAL Q12HR [facility] Vancomycin HCl 1 each 06/27/25 13:37 Vancomycin For Hemodialysis IVPB PRN PRN Vancomycin Protocol Zinc Sulfate 220 mg 06/28/25 09:00 06/28/25 18:44 Zinc Sulfate 220 Mg Capsule PO Not Given [facility] Radiology Results: ITS Impressions Abdomen/Pelvis CT 06/26/25 07:59 IMPRESSION: 1. Decubitus wounds. 2. No evidence of osteomyelitis. 3. No evidence of associated abscess. 4. No acute abnormality within abdomen or pelvis. Chest X-Ray 06/28/25 08:20 Impression: CHF. Superimposed left lower lobe pneumonia suspected. The findings are progressed Labs Labs: Laboratory Results - last 24 hr 06/28/25 06/28/25 06/28/25 07:38 14:37 16:24 WBC RBC Hgb Hct MCV MCH MCHC RDW Plt Count MPV % Immature Plt Fraction Sodium Potassium Chloride Carbon Dioxide Anion Gap BUN Creatinine Estim Creat Clear Calc Estimated GFR Glucose POC Capillary Glucose 98 100 102 Calcium Phosphorus Magnesium Albumin 06/28/25 06/29/25 20:33 04:08 WBC 5.8 RBC 3.13 L Hgb 9.7 L Hct 31.9 L MCV 101.9 H MCH 31.0 MCHC 30.4 L RDW 18.5 H Plt Count 103 L MPV 11.6 H % Immature Plt Fraction 3.9 Sodium 140 Potassium 3.5 Chloride 103 Carbon Dioxide 27 Anion Gap 10 BUN 17 Creatinine 2.68 H Estim Creat Clear Calc Not Reportable Estimated GFR 24 L Glucose 120 H POC Capillary Glucose 127 H Calcium 8.2 L Phosphorus 2.3 L Magnesium 2.0 Albumin 3.2 L
[2025-06-29] MEDS: CEFEPIME 1 GM in SODIUM CHLORIDE 0.9% IV 50 ML 100 ML IVPB (09:12)
[2025-06-29] MEDS: PANTOPRAZOLE SODIUM IV 40 MG VIAL IV PUSH ×2 (09:13→21:38)
[2025-06-29] MEDS: FERROUS SULFATE 325 MG TABLET BY MOUTH (09:21)
[2025-06-29] MEDS: SERTRALINE HCL 50 MG TABLET PO (09:21)
[2025-06-29] MEDS: MIDODRINE HCL 10 MG TABLET PO ×3 (09:21→17:42)
[2025-06-29] MEDS: ZINC SULFATE 220 MG CAPSULE PO (09:21)
[2025-06-29] MEDS: FOLIC ACID 1 MG TABLET PO (09:21)
--- NOTE | 2025-06-29 09:24 | P.CDI_ITS ---
CDI Query Clarification Request BMI: 33.3 Nutritional Diagnostic Statement: Please refer to the comprehensive nutrition assessment for further information. If you agree with diagnosis of Severe protein calorie malnutrition related to loss of appetite, increased protein energy needs from wounds, as evidenced by intakes <75% needs >1 month; weight loss 18%/2 months; severe muscle wasting and fat loss. Please specify severity if known: * Mild * Moderate * Severe * Other/Unknown <Clara Moreau RN - Last Filed: 06/29/25 09:25> Clarified Diagnosis Clarified Diagnosis: I agree with diagnosis of Severe protein calorie malnutrition related to loss of appetite, increased protein energy needs from wounds, as evidenced by intakes <75% needs >1 month; weight loss 18%/2 months; severe muscle wasting and fat loss <Jersey Garsia MD - Last Filed: 06/30/25 17:25>
--- NOTE | 2025-06-29 10:11 | P.PNNP_ITS ---
Progress Note: A&P Assessment and Plan (1) ESRD (end stage renal disease): Code(s): N18.6 - End stage renal disease Status: Chronic Assessment and Plan: * HD tomorrow * continue M/W/F schedule while hospitalized * follow electrolytes, volume status, and clearance (2) Hypotension: Code(s): I95.9 - Hypotension, unspecified Status: Acute Assessment and Plan: * some degree of chronicity with regard to this issue * on midodrine as an outpatient * suspect acute worsening due to infection (sacral decubitus ulcer + pneumonia) * associated with fever, leukocytosis, altered mental status and shortness of breath on admission * initially on vasopressor therapy but weaned off * resumed on midodrine therapy (3) Decubitus ulcer: Code(s): L89.90 - Pressure ulcer of unspecified site, unspecified stage Status: Acute Assessment and Plan: * significant amount of drainage noted in association with sloughing necrotic tissue * General Surgery following * s/p debridement (down to bone) on 06/28 * on antibiotics * local wound care (wound care following) * continue supportive therapy (4) Bacteremia: Code(s): R78.81 - Bacteremia Status: Acute Assessment and Plan: * blood cultures from 06/26 - Clostridium perfringens (1 out of 2 sets) * already on antibiotics * continue current therapy (5) Fluid overload: Qualifiers: Hypervolemia type: other Qualified Code(s): E87.79 - Other fluid overload Code(s): E87.70 - Fluid overload, unspecified Status: Acute Assessment and Plan: * as noted by imaging on presentation * likely etiology of shortness of breath on admission * fluid removal as tolerated by hemodynamics * s/p HD on 06/25 (at outpatient dialysis center) * HD on 06/26 (in ICU) * HD today * continue fluid removal as tolerated by hemodynamics * suspect outpatient dry weight needs adjustment * follow respiratory status (6) Pneumonia: Qualifiers: Laterality: left Lung location: unspecified part of lung Pneumonia type: due to unspecified organism Qualified Code(s): J18.9 - Pneumonia, unspecified organism Code(s): J18.9 - Pneumonia, unspecified organism Status: Acute Assessment and Plan: * as suggested by admission imaging * follow culture data * on antibiotics (7) Anemia: Code(s): D64.9 - Anemia, unspecified Status: Chronic Assessment and Plan: * due to ESRD and possibly worsened by acute illness * Epogen with HD * follow trend of H/H (8) Diabetes mellitus with multiple complications: Code(s): E11.8 - Type 2 diabetes mellitus with unspecified complications Status: Chronic Assessment and Plan: * follow Accu-Cheks * glycemic control per hospitalist Will continue to follow. L Subjective Date/time seen: 06/29/25 10:11 Interval history: Follow-up for end stage renal disease on hemodialysis. Tolerated dialysis treatment yesterday although treatment ended about 30 minutes early due to patient inadvertently removing one of his dialysis cannulation needles during his HD session; s/p debridement of sacral debuitus ulcer yesterday afternoon by Surgery and tolerated this intervention as well; no apparent distress noted at the time of my visit. Exam 2 Narrative: General: WD/WN male in NAD Heart: normal S1 and S2; no rub Lungs: decreased at bases Abdomen: soft, nontender, nondistended, positive bowel sounds Extremities: no cyanosis or clubbing; trace edema; s/p bilateral BKAs Skin: warm and intact Objective Data Vital Signs Vital Signs: Vital Signs Temp Pulse Resp BP Pulse Ox O2 Del Method O2 Flow Rate 06/29/25 09:20 Room Air 06/29/25 08:16 94 Room Air 06/29/25 08:00 97.2 F L 74 18 117/52 L 95 06/29/25 05:22 97.9 F 65 18 132/48 L 94 06/28/25 20:33 97.9 F 73 18 102/39 L 92 06/28/25 20:00 72 06/28/25 18:38 96.4 F L 75 16 101/77 100 06/28/25 18:04 96.6 F L 86 15 95/45 L 99 06/28/25 17:43 97.0 F L 76 14 94/65 L 99 06/28/25 17:25 71 16 92/48 L 100 Nasal Cannula 2 06/28/25 17:10 96.9 F L 71 18 92/52 L 100 Nasal Cannula 2 06/28/25 16:55 71 18 90/33 L 100 Nasal Cannula 2 06/28/25 16:40 70 18 85/34 L 96 Nasal Cannula 2 10/27/25 16:25 73 18 93 Room Air 06/28/25 16:10 78 16 86/49 L 100 Room Air 06/28/25 15:58 97.6 F 75 12 118/47 L 100 Simple Face Mask 6 06/28/25 14:00 99 F 73 16 127/53 L 93 Room Air 06/28/25 13:01 97.7 F 73 15 101/48 L 99 06/28/25 12:55 72 116/71 06/28/25 12:45 67 103/65 06/28/25 12:30 76 103/55 L 06/28/25 12:15 67 110/44 L 06/28/25 12:00 65 06/28/25 12:00 65 117/50 L 06/28/25 11:45 64 118/56 L 06/28/25 11:30 63 124/56 L Intake/Output Intake/Output: Intake & Output 06/26/25 06/27/25 06/28/25 06/29/25 23:59 23:59 23:59 23:59 Intake Total 737.5 1492.8 650 370 Output Total 3000 0 1990 Balance -2262.5 1492.8 -1340 370 Meds/Results Medications: Active Medications Generic Name Dose Route Start Last Admin Trade Name Freq PRN Reason Stop Dose Admin Atorvastatin Calcium 40 mg 06/27/25 21:00 06/28/25 23:35 Atorvastatin 40 Mg Tablet PO Not Given HS [facility] Dextrose 12.5 gm 06/27/25 09:51 Dextrose 50% 25 Gm/50 Ml Syringe IV PUSH PRN PRN Hypoglycemia Protocol Ferrous Sulfate 325 mg 06/28/25 09:00 06/29/25 09:21 Ferrous Sulfate 325 Mg Tablet BY MOUTH 325 mg DAILY [facility] Administration Folic Acid 1 mg 06/28/25 09:00 06/29/25 09:21 Folic Acid 1 Mg Tablet PO 1 mg DAILY [facility] Administration Gabapentin 200 mg 06/27/25 21:00 06/28/25 23:36 Gabapentin 100 Mg Capsule PO Not Given HS [facility] Glucagon 1 mg 06/27/25 09:51 Glucagon For Inj 1 Mg Vial IM PRN PRN Hypoglycemia Protocol Glucose 15 gm 06/27/25 09:51 Glucose Oral Gel 15 Gm Of Glucse In 37.5 Gm Tube PO PRN PRN Hypoglycemia Protocol Heparin Sodium (Porcine) 5,000 units 06/26/25 21:00 06/29/25 09:24 Heparin Sodium 5,000 Units/Ml Vial SUB-Q Not Given Q12HR [facility] Cefepime HCl 1 gm/ Sodium 50 mls @ 100 mls/hr 06/27/25 09:00 06/29/25 09:42 Chloride IVPB Infused DAILY [facility] Infusion Doxycycline Hyclate 100 mg/ 100 mls @ 100 mls/hr 06/27/25 03:00 06/29/25 01:19 Sodium Chloride IVPB 07/01/25 03:59 100 mls/hr Q12H [facility] Administration Metronidazole 500 mg in 100 mls @ 100 mls/hr 06/27/25 03:00 06/29/25 01:19 Flagyl 500 Mg/Iso Soln 100 Ml IVPB 100 mls/hr Q8H [facility] Administration Dextrose 1,000 mls @ 100 mls/hr 06/27/25 09:51 Dextrose 5% 1,000 Ml IVPB PRN PRN Hypoglycemia Protocol Albumin Human 50 mls @ 999 mls/hr 06/27/25 23:00 Albutein IVPB 07/27/25 22:59 Q10M PRN HYPOTENSION Insulin Aspart 2 - 5 units 06/27/25 11:30 06/29/25 08:01 Insulin Aspart (*Bkc) 100 Units/Ml SUB-Q Not Given ACHS [facility] Protocol Lidocaine/Prilocaine 1 each 06/28/25 06:10 Lidocaine/Prilocaine Cream 2.5-2.5% Tube TOPICAL WITH DIALYSIS PRN for dialysis Protocol Midodrine 10 mg 06/27/25 13:00 06/29/25 09:21 Midodrine Hcl 10 Mg Tablet PO 10 mg TID [facility] Administration Mirtazapine 15 mg 06/27/25 21:00 06/28/25 23:36 Mirtazapine 15 Mg Tablet PO Not Given HS [facility] Mirtazapine 7.5 mg 06/27/25 21:00 06/28/25 23:37 Mirtazapine 7.5 Mg Tablet PO Not Given HS [facility] Pantoprazole Sodium 40 mg 06/26/25 21:00 06/29/25 09:13 Pantoprazole Sodium Iv 40 Mg Vial IV PUSH 40 mg Q12HR [facility] Administration Senna/Docusate Sodium 1 tab 06/27/25 09:01 Senna/Docusate Sodium Tablet PO BID PRN Constipation Sertraline HCl 50 mg 06/28/25 09:00 06/29/25 09:21 Sertraline Hcl 50 Mg Tablet PO 50 mg QAM [facility] Administration Sevelamer Carbonate 800 mg 06/27/25 17:00 06/28/25 18:21 Sevelamer Carbonate 800 Mg Tablet PO 800 mg DAILY@1700 [facility] Administration Sodium Chloride 20 ml 06/26/25 11:46 Central Line Flush IV PUSH PRN PRN after blood draws Sodium Hypochlorite 1 applic 06/27/25 21:00 06/29/25 10:58 Sod Hypochlorite 1/4 Strength 473 Ml TOPICAL Not Given Q12HR [facility] Vancomycin HCl 1 each 06/27/25 13:37 Vancomycin For Hemodialysis IVPB PRN PRN Vancomycin Protocol Zinc Sulfate 220 mg 06/28/25 09:00 06/29/25 09:21 Zinc Sulfate 220 Mg Capsule PO 220 mg QAM [facility] Administration Radiology Results: ITS Impressions Abdomen/Pelvis CT 06/26/25 07:59 IMPRESSION: 1. Decubitus wounds. 2. No evidence of osteomyelitis. 3. No evidence of associated abscess. 4. No acute abnormality within abdomen or pelvis. Chest X-Ray 06/28/25 08:20 Impression: CHF. Superimposed left lower lobe pneumonia suspected. The findings are progressed Labs Labs: Laboratory Tests 06/29/25 04:08 06/29/25 04:08 Calcium 8.2 L Phosphorus 2.3 L Magnesium 2.0 Albumin 3.2 L Microbiology 06/26/25 06:33 Blood Blood Culture - Preliminary Clostridium perfringens 06/26/25 06:22 Blood Blood Culture - Preliminary
--- NOTE | 2025-06-29 10:20 | P.PNIM_ITS ---
Progress Note: A&P Assessment and Plan (1) Shock: Code(s): R57.9 - Shock, unspecified Status: Acute Assessment and Plan: Patient met SIRS criteria due to RR >20, WBC >12, +fever. Presented to [facility] on 06/26 with altered mental status, hypotension, shortness of breath, and fever. Patient started on norepinephrine gtt for acute hypotension to maintain MAP >65. Shock secondary to sepsis versus cardiogenic. Given patient has history of biventricular dysfunction cardiogenic cannot be excluded, however clinical picture (fever, shortness of breath) and imaging findings concerning for pneumonia as well as the chronic decubitus ulcer more so fit the picture of sepsis. - Lactic 2.0, check procalcitonin. - IV fluids held as the patient's BNP was significantly elevated and imaging showed pulmonary edema - CXR on 06/26 showed bilateral infiltrates/pulmonary edema with possible perihilar and airspace opacity/pneumonia - started on broad-spectrum antibiotics including cefepime, vancomycin, doxycycl ine, and Flagyl on 06/26 to cover pneumonia and possible pathogens affecting the patient's decubitus ulcer - admission to the ICU with bicycle messenger consulted - continue norepinephrine to maintain map greater than 65 (2) Pulmonary edema: Qualifiers: Chronicity: acute Qualified Code(s): J81.0 - Acute pulmonary edema Code(s): J81.1 - Chronic pulmonary edema Status: Acute Assessment and Plan: Pulmonary edema seen on CXR. Patient has history of combined systolic/diastolic CHF. Fluid balance managed via dialysis that he receives Mondays, Wednesdays, Fridays. Has not missed any treatments and has been able to receive his full treatments. - nephrology consulted for inpatient dialysis. - bicycle messenger spoke with Nishi ROBERTSON, plan for dialysis today (06/26) - monitor oxygen saturations (3) Pneumonia: Qualifiers: Laterality: left Lung location: unspecified part of lung Pneumonia type: due to unspecified organism Qualified Code(s): J18.9 - Pneumonia, unspecified organism Code(s): J18.9 - Pneumonia, unspecified organism Status: Acute Assessment and Plan: - antibiotics initiated as above, see shock - blood cultures pending - MRSA PCR negative - antipyretic p.r.n. (4) Decubitus ulcer: Code(s): L89.90 - Pressure ulcer of unspecified site, unspecified stage Status: Acute Assessment and Plan: Patient has longstanding chronic decubitus ulcer. CT of the abdomen/pelvis showed no current complicating features including osteomyelitis or abscess. - general surgery consulted (5) ESRD (end stage renal disease) on dialysis: Code(s): N18.6 - End stage renal disease; Z99.2 - Dependence on renal dialysis Status: Acute Assessment and Plan: Patient has history of ESRD on hemodialysis. Receives treatment on Mondays, Wednesdays, Fridays. Per chart review, the patient was able to receive his full dialysis treatment yesterday (Saturday, 06/25). However the patient currently appears volume overloaded based off clinical exam and CXR findings. Turn Out Worker spoke with hospitalist physician, plan for dialysis today. Nephrology aware patient is currently requiring norepinephrine and currently has a mild O2 requirement. - monitor electrolytes - monitor blood pressure (6) Type 2 diabetes mellitus: Qualifiers: Chronic kidney disease stage: on chronic dialysis Diabetes mellitus complication detail: with chronic kidney disease Diabetes mellitus complication status: with kidney complications Diabetes mellitus termite control servicer insulin use: without termite control servicer use Qualified Code(s): E11.22 - Type 2 diabetes mellitus with diabetic chronic kidney disease; N18.6 - End stage renal disease; Z99.2 - Dependence on renal dialysis Code(s): E11.9 - Type 2 diabetes mellitus without complications Status: Chronic Assessment and Plan: History of type 2 diabetes complicated by ESRD, bilateral BKA, and diabetic neuropathy. - hypoglycemia protocol - POC blood glucose Q6H - hold home medications including Sevelamer and Tradjenta - correct regimen ordered - low dose Q6H - A1C 5.6% on 10/20/2024 (7) Anemia of chronic disease: Code(s): D63.8 - Anemia in other chronic diseases classified elsewhere Status: Chronic Assessment and Plan: Patient has history of anemia of chronic disease (ESRD). - Hgb 9.4 upon admission, at baseline - transfuse if <7 - monitor Plan patient with septic shock resulting in AMS presented to ER with hypotension most likely 2/2 sacral wound, patient is being treated with Cefepime, doxycycline, and Flagyl, patient clinical symptoms are improving and he is off the pressure and blood pressure is trending up, and his white counts are trending up, patient was seen by general surgery service and recommended, will require debridement of his sacral wound, patient and family has agreed. patient will be transferred out of ICU to IMU, will monitor, once clinically stable, will have PT/OT evaluate the patient and patient will benefit going to rehab. will monitor, patient family is present and gave updates. on 06/27 patient was moved out of ICU to medical floor, seen in the dialysis center, having HD stats feels better, he is scheduled to have debridement later today with general surgery, he remains clinically stable, will monitor. on 06/28 patient has his wound debridement and tolerated, patient still has episodes of confusion, agitation and restlessness, patient one bottle of blood culture is growing Clostridium perfringens, patient is being treated with Cefepime, doxycycline, Flagy, and vancomycin, white counts are tending down, and has no fever, most likely due to his pneumonia, will follow up on blood culture, will discuss with clinical pharmacist and further recommendation to follow. Home medications held as the patient is currently somnolent and A&O times 0. Made NPO. Resume home medications once mental status improved and when appropriate. Diet: NPO GI Prophylaxis: Pantoprazole IV DVT Prophylaxis: Heparin SQ IV fluids: none, concern for volume overload and plan for diuresis via HD Lines/Tubes: Peripheral IV Code Status: DNR, paperwork in patient's chart Subjective Date/time seen: 06/29/25 10:20 Interval history: AMS, Fever H&P-Narrative: 60 y/o M with PMH of iron deficiency anemia/anemia of chronic disease, pAFib, coronary artery disease s/p multiple stents and CABG, diabetes, ESRD on HD, CHF, and RISA not on CPAP presents here with altered mental status and fever. The patient presents here from [facility] via EMS on 06/26 for further evaluation of altered mental status fever. The patient is currently A&Ox0 and HPI was obtained through ED report and chart review. Per chart review, he was initially evaluated yesterday on 06/25 for altered mental status. Alteration was noted during his dialysis treatment, was able to receive his full dialysis treatment. Per family at that time, they reported he has been slightly more confused since starting a new pain medication. He did not receive that medication yesterday. Patient later improved during his ED evaluation and became orientated to self and place. He was discharged back to his facility with recommendations/referral for further wound care for his chronic decubitus ulcer of the sacrum. He is returning today as he has developed recurrent alter ed mental status and now has a fever. Upon arrival to the emergency department he was found to be febrile with a temp of 102.3? F and mildly hypotensive. Despite improvement in blood pressure, the patient remains A&Ox0. No further history or review of systems available at this time. Initial VS at presentation: 102.3? F, HR 76, R 21, 106/50, and 91% on 1L nasal cannula. Now 97% on 2 L nasal cannula. Lowest BP in the ED seen was 86/44, now on pressor. ED workup showed: WBC 13.3 9, hemoglobin 9.4 (10.9 on 06/25, at baseline), INR 1.8, sodium 136, potassium 3.4, creatinine 2.76 and GFR 23, glucose 137, lactic 2.0 H, BNP greater than 30,000, albumin 2.5. CXR showed interstitial pulmonary edema and/or pneumonitis, persistent significant bibasilar atelectasis and/or airspace disease. CT of the abdomen/pelvis showed a decubitus wound with no evidence of osteomyelitis/abscess, no acute abnormality within abdomen or pelvis. Repeat CXR post central line showed no pneumothorax and improving interstitial pulmonary edema. patient with septic shock resulting in AMS presented to ER with hypotension most likely 2/2 sacral wound, patient is being treated with Cefepime, doxycycline, and Flagyl, patient clinical symptoms are improving and he is off the pressure and blood pressure is trending up, and his white counts are trending up, patient was seen by general surgery service and recommended, will require debridement of his sacral wound, patient and family has agreed. patient will be transferred out of ICU to IMU, will monitor, once clinically stable, will have PT/OT evaluate the patient and patient will benefit going to rehab. will monitor, patient family is present and gave updates. on 06/27 patient was moved out of ICU to medical floor, seen in the dialysis center, having HD stats feels better, he is scheduled to have debridement later today with general surgery, he remains clinically stable, will monitor. on 06/28 patient has his wound debridement and tolerated, patient still has episodes of confusion, agitation and restlessness, patient one bottle of blood culture is growing Clostridium perfringens, patient is being treated with Cefepime, doxycycline, Flagy, and vancomycin, white counts are tending down, and has no fever, will follow up on blood culture, most likely due to his pneumonia,will discuss with clinical pharmacist and further recommendation to artie cheney. Review of Systems Review of Systems: All systems reviewed & are unremarkable except as noted in HPI and below ROS unobtainable: Yes unobtainable due to mental status Exam Narrative: Patient is comfortable, NAD HEENT: eyes are clear and none icteric LUNGS:CTA HEART: RR S1S2 ABD: BS+, Soft and nontender Lower extremities: no edema SKIN: nonjaundiced Neuro: grossly intact. Objective Data Vital Signs Vital Signs: Vital Signs - 24 hr 06/28/25 10:30 06/28/25 10:45 06/28/25 11:00 Temperature Pulse Rate 60 62 62 Respiratory Rate Blood Pressure 114/54 L 113/57 L 118/56 L Pulse Oximetry Oxygen Delivery Oxygen Flow Rate 06/28/25 11:15 06/28/25 11:30 06/28/25 11:45 Temperature Pulse Rate 63 63 64 Respiratory Rate Blood Pressure 124/58 L 124/56 L 118/56 L Pulse Oximetry Oxygen Delivery Oxygen Flow Rate 06/28/25 12:00 06/28/25 12:00 06/28/25 12:15 Temperature Pulse Rate 65 65 67 Respiratory Rate Blood Pressure 117/50 L 110/44 L Pulse Oximetry Oxygen Delivery Oxygen Flow Rate 06/28/25 12:30 06/28/25 12:45 06/28/25 12:55 Temperature Pulse Rate 76 67 72 Respiratory Rate Blood Pressure 103/55 L 103/65 116/71 Pulse Oximetry Oxygen Delivery Oxygen Flow Rate 06/28/25 13:01 06/28/25 14:00 06/28/25 15:58 Temperature 36.5 C 37.2 C 36.4 C Pulse Rate 73 73 75 Respiratory Rate 15 16 12 Blood Pressure 101/48 L 127/53 L 118/47 L Pulse Oximetry 99 93 100 Oxygen Delivery Room Air Simple Face Mask Oxygen Flow Rate 6 06/28/25 16:10 06/28/25 16:25 06/28/25 16:40 Temperature Pulse Rate 78 73 70 Respiratory Rate 16 18 18 Blood Pressure 86/49 L 85/34 L Pulse Oximetry 100 93 96 Oxygen Delivery Room Air Room Air Nasal Cannula Oxygen Flow Rate 2 06/28/25 16:55 06/28/25 17:10 06/28/25 17:25 Temperature 36.1 C L Pulse Rate 71 71 71 Respiratory Rate 18 18 16 Blood Pressure 90/33 L 92/52 L 92/48 L Pulse Oximetry 100 100 100 Oxygen Delivery Nasal Cannula Nasal Cannula Nasal Cannula Oxygen Flow Rate 2 2 2 06/28/25 17:43 06/28/25 18:04 06/28/25 18:38 Temperature 36.1 C L 35.9 C L 35.8 C L Pulse Rate 76 86 75 Respiratory Rate 14 15 16 Blood Pressure 94/65 L 95/45 L 101/77 Pulse Oximetry 99 99 100 Oxygen Delivery Oxygen Flow Rate 06/28/25 20:00 06/28/25 20:33 06/29/25 05:22 Temperature 36.6 C 36.6 C Pulse Rate 72 73 65 Respiratory Rate 18 18 Blood Pressure 102/39 L 132/48 L Pulse Oximetry 92 94 Oxygen Delivery Oxygen Flow Rate 06/29/25 08:00 06/29/25 08:16 Temperature 36.2 C L Pulse Rate 74 Respiratory Rate 18 Blood Pressure 117/52 L Pulse Oximetry 95 94 Oxygen Delivery Room Air Oxygen Flow Rate Intake/Output Intake/Output: Intake & Output 06/26/25 06/27/25 06/28/25 06/29/25 23:59 23:59 23:59 23:59 Intake Total 737.5 1492.8 650 320 Output Total 3000 0 1990 Balance -2262.5 1492.8 -1340 320 Meds/Results Medications: Active Medications Generic Name Dose Route Start Last Admin Trade Name Freq PRN Reason Stop Dose Admin Atorvastatin Calcium 40 mg 06/27/25 21:00 06/28/25 23:35 Atorvastatin 40 Mg Tablet PO Not Given HS SALVADOR Dextrose 12.5 gm 06/27/25 09:51 Dextrose 50% 25 Gm/50 Ml Syringe IV PUSH PRN PRN Hypoglycemia Protocol Ferrous Sulfate 325 mg 06/28/25 09:00 06/29/25 09:21 Ferrous Sulfate 325 Mg Tablet BY MOUTH 325 mg DAILY SALVADOR Administration Folic Acid 1 mg 06/28/25 09:00 06/29/25 09:21 Folic Acid 1 Mg Tablet PO 1 mg DAILY SALVADOR Administration Gabapentin 200 mg 06/27/25 21:00 06/28/25 23:36 Gabapentin 100 Mg Capsule PO Not Given HS SALVADOR Glucagon 1 mg 06/27/25 09:51 Glucagon For Inj 1 Mg Vial IM PRN PRN Hypoglycemia Protocol Glucose 15 gm 06/27/25 09:51 Glucose Oral Gel 15 Gm Of Glucse In 37.5 Gm Tube PO PRN PRN Hypoglycemia Protocol Heparin Sodium (Porcine) 5,000 units 06/26/25 21:00 06/29/25 09:24 Heparin Sodium 5,000 Units/Ml Vial SUB-Q Not Given Q12HR SALVADOR Cefepime HCl 1 gm/ Sodium 50 mls @ 100 mls/hr 06/27/25 09:00 06/29/25 09:12 Chloride IVPB 100 mls/hr DAILY SALVADOR Administration Doxycycline Hyclate 100 mg/ 100 mls @ 100 mls/hr 06/27/25 03:00 06/29/25 01:19 Sodium Chloride IVPB 07/01/25 03:59 100 mls/hr Q12H SALVADOR Administration Metronidazole 500 mg in 100 mls @ 100 mls/hr 06/27/25 03:00 06/29/25 01:19 Flagyl 500 Mg/Iso Soln 100 Ml IVPB 100 mls/hr Q8H SALVADOR Administration Dextrose 1,000 mls @ 100 mls/hr 06/27/25 09:51 Dextrose 5% 1,000 Ml IVPB PRN PRN Hypoglycemia Protocol Albumin Human 50 mls @ 999 mls/hr 06/27/25 23:00 Albutein IVPB 07/27/25 22:59 Q10M PRN HYPOTENSION Insulin Aspart 2 - 5 units 06/27/25 11:30 06/29/25 08:01 Insulin Aspart (*Bkc) 100 Units/Ml SUB-Q Not Given ACHS SALVADOR Protocol Lidocaine/Prilocaine 1 each 06/28/25 06:10 Lidocaine/Prilocaine Cream 2.5-2.5% Tube TOPICAL WITH DIALYSIS PRN for dialysis Protocol Midodrine 10 mg 06/27/25 13:00 06/29/25 09:21 Midodrine Hcl 10 Mg Tablet PO 10 mg TID SALVADOR Administration Mirtazapine 15 mg 06/27/25 21:00 06/28/25 23:36 Mirtazapine 15 Mg Tablet PO Not Given HS SALVADOR Mirtazapine 7.5 mg 06/27/25 21:00 06/28/25 23:37 Mirtazapine 7.5 Mg Tablet PO Not Given HS SALVADOR Pantoprazole Sodium 40 mg 06/26/25 21:00 06/29/25 09:13 Pantoprazole Sodium Iv 40 Mg Vial IV PUSH 40 mg Q12HR SALVADOR Administration Senna/Docusate Sodium 1 tab 06/27/25 09:01 Senna/Docusate Sodium Tablet PO BID PRN Constipation Sertraline HCl 50 mg 06/28/25 09:00 06/29/25 09:21 Sertraline Hcl 50 Mg Tablet PO 50 mg QAM SALVADOR Administration Sevelamer Carbonate 800 mg 06/27/25 17:00 06/28/25 18:21 Sevelamer Carbonate 800 Mg Tablet PO 800 mg DAILY@1700 SALVADOR Administration Sodium Chloride 10 ml 06/26/25 14:00 06/27/25 13:42 Central Line Flush IV PUSH 10 ml Q8HR SALVADOR Administration Sodium Chloride 20 ml 06/26/25 11:46 Central Line Flush IV PUSH PRN PRN after blood draws Sodium Hypochlorite 1 applic 06/27/25 21:00 Sod Hypochlorite 1/4 Strength 473 Ml TOPICAL Q12HR SALVADOR Vancomycin HCl 1 each 06/27/25 13:37 Vancomycin For Hemodialysis IVPB PRN PRN Vancomycin Protocol Zinc Sulfate 220 mg 06/28/25 09:00 06/29/25 09:21 Zinc Sulfate 220 Mg Capsule PO 220 mg QAM SALVADOR Administration Radiology Results: ITS Impressions Abdomen/Pelvis CT 06/26/25 07:59 IMPRESSION: 1. Decubitus wounds. 2. No evidence of osteomyelitis. 3. No evidence of associated abscess. 4. No acute abnormality within abdomen or pelvis. Chest X-Ray 06/28/25 08:20 Impression: CHF. Superimposed left lower lobe pneumonia suspected. The findings are progressed Labs Labs: Laboratory Results - last 24 hr 06/28/25 06/28/25 06/28/25 14:37 16:24 20:33 WBC RBC Hgb Hct MCV MCH MCHC RDW Plt Count MPV % Immature Plt Fraction Sodium Potassium Chloride Carbon Dioxide Anion Gap BUN Creatinine Estim Creat Clear Calc Estimated GFR Glucose POC Capillary Glucose 100 102 127 H Calcium Phosphorus Magnesium Albumin 06/29/25 06/29/25 04:08 07:47 WBC 5.8 RBC 3.13 L Hgb 9.7 L Hct 31.9 L MCV 101.9 H MCH 31.0 MCHC 30.4 L RDW 18.5 H Plt Count 103 L MPV 11.6 H % Immature Plt Fraction 3.9 Sodium 140 Potassium 3.5 Chloride 103 Carbon Dioxide 27 Anion Gap 10 BUN 17 Creatinine 2.68 H Estim Creat Clear Calc Not Reportable Estimated GFR 24 L Glucose 120 H POC Capillary Glucose 123 H Calcium 8.2 L Phosphorus 2.3 L Magnesium 2.0 Albumin 3.2 L Quality VTE Prophylaxis VTE prophylaxis: pharmacologic ordered
[2025-06-29] MEDS: SOD HYPOCHLORITE 1/4 STRENGTH 473 ML 1 APPLIC TOPICAL ×2 (11:36→21:39)
--- NOTE | 2025-06-29 12:36 | PC.NURSE ---
Patient had been refusing to keep telemetry on. Provider notified. Telemetry reapplied to patient
--- NOTE | 2025-06-29 13:34 | WPDANESPN ---
Anes - Prog Note Post-Op Date/Time: 06/29/25 13:34 Cardiovascular status: normal Respiratory status: normal Airway patency: baseline Mental status: baseline Post-Op hydration status: normal Vital Signs: Last Vital Signs Temp 36.2 C L 06/29/25 08:00 Pulse 74 06/29/25 08:00 Resp 18 06/29/25 08:00 BP 117/52 L 06/29/25 08:00 Pulse Ox 94 06/29/25 08:16 O2 Del Method Room Air 06/29/25 09:20 O2 Flow Rate 2 06/28/25 17:25 Pain Score (VAS): 2 I/O: Intake & Output 06/28/25 06/29/25 06/29/25 23:59 07:59 15:59 Intake Total 150 300 270 Output Total 0 Balance 150 300 270 Laboratory Tests 06/29/25 04:08 06/29/25 04:08 06/28/25 06/28/25 06/28/25 14:37 16:24 20:33 WBC RBC Hgb Hct MCV MCH MCHC RDW Plt Count MPV % Immature Plt Fraction Sodium Potassium Chloride Carbon Dioxide Anion Gap BUN Creatinine Estim Creat Clear Calc Estimated GFR Glucose POC Capillary Glucose 100 102 127 H Calcium Phosphorus Magnesium Albumin 06/29/25 06/29/25 06/29/25 04:08 07:47 12:12 WBC 5.8 RBC 3.13 L Hgb 9.7 L Hct 31.9 L MCV 101.9 H MCH 31.0 MCHC 30.4 L RDW 18.5 H Plt Count 103 L MPV 11.6 H % Immature Plt Fraction 3.9 Sodium 140 Potassium 3.5 Chloride 103 Carbon Dioxide 27 Anion Gap 10 BUN 17 Creatinine 2.68 H Estim Creat Clear Calc Not Reportable Estimated GFR 24 L Glucose 120 H POC Capillary Glucose 123 H 145 H Calcium 8.2 L Phosphorus 2.3 L Magnesium 2.0 Albumin 3.2 L Microbiology 06/26/25 06:22 Blood Blood Culture - Preliminary 06/26/25 06:33 Blood Blood Culture - Preliminary Clostridium perfringens Post-procedural complaints: none Patient Feedback: Patient satisfied with anesthetic care.
[2025-06-29] MEDS: CLINDAMYCIN 900 MG/D5W 50 ML 900 MG/50 ML PIGGYBACK 50 MG IVPB ×2 (14:30→21:40)
[2025-06-29] MEDS: SEVELAMER CARBONATE 800 MG TABLET PO (17:42)
[2025-06-29] MEDS: cefTRIAXone 2 GM in SODIUM CHLORIDE 0.9% IV 100 ML 200 ML IVPB (21:36)
[2025-06-29] MEDS: ATORVASTATIN 40 MG TABLET PO (21:37)
[2025-06-29] MEDS: MIRTAZAPINE 15 MG TABLET PO (21:37)
[2025-06-29] MEDS: GABAPENTIN 100 MG CAPSULE 200 MG PO (21:37)
[2025-06-29] MEDS: MIRTAZAPINE 7.5 MG TABLET PO (21:37)
[2025-06-30] VITALS (25 sets, daily range): BP systolic 85–124; BP diastolic 43–60; PULSE 53–72; RESP 16–18; TEMP 36–37; O2SAT 97–99
[2025-06-30 05:08] LABS: Hematocrit 30.2 % (42.0-52.0); Hemoglobin 9.1 g/dL (14.0-18.0); Immature Platelet Fraction Pct 4.9 % (0.9-11.2); Mean Corpuscular HGB Conc 30.1 g/dl (32-36); Mean Corpuscular Hemoglobin 30.1 pg (26-34); Mean Corpuscular Volume 100.0 fl (80-100); Platelet Count Result 84 k/mm3 (150-375); Red Blood Count 3.02 M/mm3 (4.6-6.20); White Blood Count 4.9 K/mm3 (4.5-10.0)
[2025-06-30] MEDS: CLINDAMYCIN 900 MG/D5W 50 ML 900 MG/50 ML PIGGYBACK 50 MG IVPB (05:15)
[2025-06-30 05:21] LABS: Albumin Level 3.0 g/dL (3.5-5.1); Anion Gap 10 mmol/L (4-12); Blood Urea Nitrogen 26 mg/dL (9-20); Calcium 8.0 mg/dL (8.4-10.2); Carbon Dioxide 26 mmol/L (22-30); Chloride 105 mmol/L (98-107); Estimated Glomerular Filt Rate 16; Glucose 114 mg/dL (65-110); Magnesium 2.1 mg/dL (1.6-2.3); Potassium 3.1 mmol/L (3.4-5.0); Sodium 141 mmol/L (137-145)
--- NOTE | 2025-06-30 10:08 | PM.PNGS ---
Progress Note: A&P Assessment and Plan (1) Decubitus ulcer: Qualifiers: Pressure injury location: sacral region Pressure injury stage: stage 4 Qualified Code(s): L89.154 - Pressure ulcer of sacral region, stage 4 Code(s): L89.90 - Pressure ulcer of unspecified site, unspecified stage Status: Acute (2) Type 2 diabetes mellitus: Qualifiers: Chronic kidney disease stage: on chronic dialysis Diabetes mellitus complication detail: with chronic kidney disease Diabetes mellitus complication status: with kidney complications Diabetes mellitus penitentiary insulin use: without penitentiary use Qualified Code(s): E11.22 - Type 2 diabetes mellitus with diabetic chronic kidney disease; N18.6 - End stage renal disease; Z99.2 - Dependence on renal dialysis Code(s): E11.9 - Type 2 diabetes mellitus without complications Status: Chronic (3) Septic shock: Code(s): A41.9 - Sepsis, unspecified organism; R65.21 - Severe sepsis with septic shock Status: Acute (4) Pulmonary edema: Qualifiers: Chronicity: acute Qualified Code(s): J81.0 - Acute pulmonary edema Code(s): J81.1 - Chronic pulmonary edema Status: Acute (5) Acute hypoxemic respiratory failure: Code(s): J96.01 - Acute respiratory failure with hypoxia Status: Acute (6) Paroxysmal atrial fibrillation: Code(s): I48.0 - Paroxysmal atrial fibrillation Status: Acute (7) ESRD (end stage renal disease) on dialysis: Code(s): N18.6 - End stage renal disease; Z99.2 - Dependence on renal dialysis Status: Acute (8) Acute exacerbation of CHF (congestive heart failure): Code(s): I50.9 - Heart failure, unspecified Status: Acute Plan General surgery consulted to evaluate decubitus ulcer. On initial presentation, patient did appear septic vs CHF exacerbation, likely combination of both. Underwent debridement on 06/28. Patient's clinical status improved. No leukocytosis. Wound appears clean and hemostatic. -POD#2 s/p sacral decubitus ulcer debridement. -wound hemostatic, clean base, dakin's moisteneg gauze Plan - continue ABX - Wound care consult, continue Dakin's moistened kerlix on wound for now, appreciate wound care recs and assistance - remainder cares per primary team and consultants - surgery will be available for further needs A&P discussed with Dr. Little Subjective Subjective Date/Time Seen: 06/30/25 10:08 Interval history: NAEON. Doing well this morning. Wound examined with much lint cleaner base, no purulent output, minimal drainage on gauze, hemostatic. Patient afebrile, VSS. WBC WNL. Review of Systems Review of Systems: All systems reviewed & are unremarkable except as noted in HPI and below Exam Narrative: General: Awake, alert, no acute distress HEENT: NC/AT, EOMI, right-sided exotropia neck: Fullness in left neck near central line placement, hemostatic, not expanding heart: Regular rate, HDS, off pressors lungs: Symmetric expansion, no IWOB, on supplemental oxygen via nasal cannula abdomen: Soft, NTTP, ND, nonperitoneal extremities: stage IV sacral decubitus ulcer down to bone, s/p debridement, Dakin's moistened gauze in place, clean base, no purulent discharge, hemostatic; bilateral BKA Objective Data Vital Signs Vital Signs: Vital Signs - 24 hr 06/29/25 12:00 06/29/25 14:53 06/29/25 16:00 Temperature 98.2 F Pulse Rate 64 81 63 Respiratory Rate 18 Blood Pressure 125/45 L Pulse Oximetry 95 Oxygen Delivery 06/29/25 19:57 06/29/25 20:00 06/29/25 20:21 Temperature 97.6 F Pulse Rate 63 60 60 Respiratory Rate 18 16 Blood Pressure 113/54 L Pulse Oximetry 95 92 Oxygen Delivery Room Air 06/30/25 00:00 06/30/25 04:00 06/30/25 08:22 Temperature 98.4 F Pulse Rate 60 54 L 57 L Respiratory Rate 16 Blood Pressure 108/48 L Pulse Oximetry 99 Oxygen Delivery 06/30/25 08:58 Temperature Pulse Rate 57 L Respiratory Rate Blood Pressure 116/60 Pulse Oximetry Oxygen Delivery Intake/Output Intake/Output: Intake & Output 06/27/25 06/28/25 06/29/25 06/30/25 23:59 23:59 23:59 23:59 Intake Total 1492.8 650 910 200 Output Total 0 1989 Balance 1492.8 -1340 910 200 Meds/Results Medications: Active Medications Generic Name Dose Route Start Last Admin Trade Name Freq PRN Reason Stop Dose Admin Acetaminophen 650 mg 06/29/25 11:38 Acetaminophen 325 Mg Tablet PO Q6H PRN Mild Pain (1-3) or Fever Atorvastatin Calcium 40 mg 06/27/25 21:00 06/29/25 21:37 Atorvastatin 40 Mg Tablet PO 40 mg HS [facility]OR Administration Dextrose 12.5 gm 06/27/25 09:51 Dextrose 50% 25 Gm/50 Ml Syringe IV PUSH PRN PRN Hypoglycemia Protocol Epoetin Bradford-epbx 10,000 units 06/30/25 17:53 Epoetin Bradford-Epbx 10,000 Units/Ml Vial IV PUSH 06/30/25 17:54 ONCE ONE Ferrous Sulfate 325 mg 06/28/25 09:00 06/29/25 09:21 Ferrous Sulfate 325 Mg Tablet BY MOUTH 325 mg DAILY [facility] Administration Folic Acid 1 mg 06/28/25 09:00 06/29/25 09:21 Folic Acid 1 Mg Tablet PO 1 mg DAILY [facility] Administration Gabapentin 200 mg 06/27/25 21:00 06/29/25 21:37 Gabapentin 100 Mg Capsule PO 200 mg HS [facility] Administration Glucagon 1 mg 06/27/25 09:51 Glucagon For Inj 1 Mg Vial IM PRN PRN Hypoglycemia Protocol Glucose 15 gm 06/27/25 09:51 Glucose Oral Gel 15 Gm Of Glucse In 37.5 Gm Tube PO PRN PRN Hypoglycemia Protocol Heparin Sodium (Porcine) 5,000 units 06/26/25 21:00 06/29/25 21:37 Heparin Sodium 5,000 Units/Ml Vial SUB-Q 5,000 units Q12HR [facility] Administration Dextrose 1,000 mls @ 100 mls/hr 06/27/25 09:51 Dextrose 5% 1,000 Ml IVPB PRN PRN Hypoglycemia Protocol Albumin Human 50 mls @ 999 mls/hr 06/27/25 23:00 Albutein IVPB 07/27/25 22:59 Q10M PRN HYPOTENSION Ceftriaxone Sodium 2 gm/ 100 mls @ 200 mls/hr 06/29/25 18:00 06/29/25 21:36 Sodium Chloride IVPB 200 mls/hr Q24H [facility] Administration Clindamycin Phosphate 900 mg in 50 mls @ 50 mls/hr 06/29/25 14:00 06/30/25 05:15 Cleocin 900 Mg/D5w 50 Ml IVPB 50 mls/hr Q8H [facility] Administration Ibuprofen 400 mg 06/29/25 11:38 Ibuprofen 400 Mg Tablet PO Q6H PRN Pain Rated 4-6 Insulin Aspart 2 - 5 units 06/27/25 11:30 06/30/25 08:29 Insulin Aspart (*Bkc) 100 Units/Ml SUB-Q Not Given ACHS [facility] Protocol Lidocaine/Prilocaine 1 each 06/28/25 06:10 Lidocaine/Prilocaine Cream 2.5-2.5% Tube TOPICAL WITH DIALYSIS PRN for dialysis Protocol Midodrine 10 mg 06/27/25 13:00 06/29/25 17:42 Midodrine Hcl 10 Mg Tablet PO 10 mg TID [facility] Administration Mirtazapine 15 mg 06/27/25 21:00 06/29/25 21:37 Mirtazapine 15 Mg Tablet PO 15 mg HS [facility] Administration Mirtazapine 7.5 mg 06/27/25 21:00 06/29/25 21:37 Mirtazapine 7.5 Mg Tablet PO 7.5 mg HS [facility] Administration Pantoprazole Sodium 40 mg 06/26/25 21:00 06/29/25 21:38 Pantoprazole Sodium Iv 40 Mg Vial IV PUSH 40 mg Q12HR [facility] Administration Senna/Docusate Sodium 1 tab 06/27/25 09:01 Senna/Docusate Sodium Tablet PO BID PRN Constipation Sertraline HCl 50 mg 06/28/25 09:00 06/29/25 09:21 Sertraline Hcl 50 Mg Tablet PO 50 mg QAM [facility] Administration Sevelamer Carbonate 800 mg 06/27/25 17:00 06/29/25 17:42 Sevelamer Carbonate 800 Mg Tablet PO 800 mg DAILY@1700 [facility] Administration Sodium Chloride 20 ml 06/26/25 11:46 Central Line Flush IV PUSH PRN PRN after blood draws Sodium Hypochlorite 1 applic 06/27/25 21:00 06/29/25 21:39 Sod Hypochlorite 1/4 Strength 473 Ml TOPICAL 1 applic Q12HR [facility] Administration Zinc Sulfate 220 mg 06/28/25 09:00 06/29/25 09:21 Zinc Sulfate 220 Mg Capsule PO 220 mg QAM [facility] Administration Radiology Results: ITS Impressions Abdomen/Pelvis CT 06/26/25 07:59 IMPRESSION: 1. Decubitus wounds. 2. No evidence of osteomyelitis. 3. No evidence of associated abscess. 4. No acute abnormality within abdomen or pelvis. Chest X-Ray 06/28/25 08:20 Impression: CHF. Superimposed left lower lobe pneumonia suspected. The findings are progressed Labs Labs: Laboratory Results - last 24 hr 06/29/25 06/29/25 06/29/25 12:12 17:09 20:15 WBC RBC Hgb Hct MCV MCH MCHC RDW Plt Count MPV % Immature Plt Fraction Sodium Potassium Chloride Carbon Dioxide Anion Gap BUN Creatinine Estim Creat Clear Calc Estimated GFR Glucose POC Capillary Glucose 145 H 190 H 194 H Calcium Phosphorus Magnesium Albumin 06/30/25 06/30/25 04:15 07:58 WBC 4.9 RBC 3.02 L Hgb 9.1 L Hct 30.2 L MCV 100.0 MCH 30.1 MCHC 30.1 L RDW 18.2 H Plt Count 84 L MPV 13.4 H % Immature Plt Fraction 4.9 Sodium 141 Potassium 3.1 L Chloride 105 Carbon Dioxide 26 Anion Gap 10 BUN 26 H Creatinine 3.84 H Estim Creat Clear Calc Not Reportable Estimated GFR 16 L Glucose 114 H POC Capillary Glucose 111 H Calcium 8.0 L Phosphorus 2.7 Magnesium 2.1 Albumin 3.0 L
[2025-06-30 10:50] LABS: Hepatitis B Surface Antigen Negative (Negative)
[2025-06-30 11:07] LABS: Hepatitis B Surface Anti Res Negative
[2025-06-30] MEDS: EPOETIN ALFA-EPBX 10,000 UNITS/ML VIAL 10000 UNITS IV PUSH (11:31)
--- NOTE | 2025-06-30 12:25 | P.PNNP_ITS ---
Progress Note: A&P Assessment and Plan (1) ESRD (end stage renal disease): Code(s): N18.6 - End stage renal disease Status: Chronic Assessment and Plan: * HD today * continue M/W/F schedule while hospitalized * follow electrolytes, volume status, and clearance (2) Hypotension: Code(s): I95.9 - Hypotension, unspecified Status: Acute Assessment and Plan: * some degree of chronicity with regard to this issue * on midodrine as an outpatient * suspect acute worsening due to infection (sacral decubitus ulcer + pneumonia) * associated with fever, leukocytosis, altered mental status and shortness of breath on admission * initially on vasopressor therapy but weaned off * resumed on midodrine therapy (3) Decubitus ulcer: Code(s): L89.90 - Pressure ulcer of unspecified site, unspecified stage Status: Acute Assessment and Plan: * significant amount of drainage noted in association with sloughing necrotic tissue * General Surgery following * s/p debridement (down to bone) on 06/28 * on antibiotics * local wound care (wound care following) * continue supportive therapy (4) Bacteremia: Code(s): R78.81 - Bacteremia Status: Acute Assessment and Plan: * blood cultures from 06/26 - Clostridium perfringens & Eggerthella(Eubacterium) lenta * already on antibiotics * continue current therapy (5) Fluid overload: Qualifiers: Hypervolemia type: other Qualified Code(s): E87.79 - Other fluid overload Code(s): E87.70 - Fluid overload, unspecified Status: Acute Assessment and Plan: * as noted by imaging on presentation * likely etiology of shortness of breath on admission * fluid removal as tolerated by hemodynamics * extra session of HD on 06/26 (in ICU) * continue fluid removal as tolerated by hemodynamics * suspect outpatient dry weight needs adjustment * follow respiratory status (6) Pneumonia: Qualifiers: Laterality: left Lung location: unspecified part of lung Pneumonia type: due to unspecified organism Qualified Code(s): J18.9 - Pneumonia, unspecified organism Code(s): J18.9 - Pneumonia, unspecified organism Status: Acute Assessment and Plan: * as suggested by admission imaging * follow culture data * on antibiotics (7) Anemia: Code(s): D64.9 - Anemia, unspecified Status: Chronic Assessment and Plan: * due to ESRD and possibly worsened by acute illness * Epogen with HD * follow trend of H/H (8) Diabetes mellitus with multiple complications: Code(s): E11.8 - Type 2 diabetes mellitus with unspecified complications Status: Chronic Assessment and Plan: * follow Accu-Cheks * glycemic control per hospitalist Will continue to follow. L Subjective Date/time seen: 06/30/25 12:25 Interval history: Follow-up for end stage renal disease on hemodialysis. Tolerating dialysis treatment at the time of my visit (seen on HD at 12:15pm); no apparent distress noted when seen; not very verbally but nods his head to yes/no questions; no other acute issues/events overnight or earlier this morning. Exam 2 Narrative: General: WD/WN male in NAD Heart: normal S1 and S2; no rub Lungs: decreased at bases Abdomen: soft, nontender, nondistended, positive bowel sounds Extremities: no cyanosis or clubbing; trace edema; s/p bilateral BKAs Skin: no rash Objective Data Vital Signs Vital Signs: Vital Signs Temp Pulse Resp BP Pulse Ox O2 Del Method 06/30/25 12:15 66 113/56 L 06/30/25 12:00 64 124/52 L 06/30/25 11:45 64 109/57 L 06/30/25 11:30 59 L 97/55 L 06/30/25 11:15 62 114/56 L 06/30/25 11:00 59 L 99/46 L 06/30/25 10:45 58 L 98/46 L 06/30/25 10:30 61 98/49 L 06/30/25 10:15 60 88/45 L 06/30/25 10:00 58 L 88/45 L 06/30/25 09:45 56 L 87/45 L 06/30/25 09:30 56 L 90/51 L 06/30/25 09:15 54 L 102/48 L 06/30/25 08:58 57 L 116/60 06/30/25 08:22 98.4 F 57 L 16 108/48 L 99 06/30/25 08:00 53 L Room Air 06/30/25 04:00 54 L 06/30/25 00:00 60 06/29/25 20:21 97.6 F 60 16 113/54 L 92 06/29/25 20:00 60 06/29/25 19:57 63 18 95 Room Air 06/29/25 16:00 63 06/29/25 14:53 98.2 F 81 18 125/45 L 95 Intake/Output Intake/Output: Intake & Output 06/27/25 06/28/25 06/29/25 06/30/25 23:59 23:59 23:59 23:59 Intake Total 1492.8 650 910 200 Output Total 0 1989 1700 Balance 1492.8 -1340 910 -1500 Meds/Results Medications: Active Medications Generic Name Dose Route Start Last Admin Trade Name Freq PRN Reason Stop Dose Admin Acetaminophen 650 mg 06/29/25 11:38 Acetaminophen 325 Mg Tablet PO Q6H PRN Mild Pain (1-3) or Fever Atorvastatin Calcium 40 mg 06/27/25 21:00 06/29/25 21:37 Atorvastatin 40 Mg Tablet PO 40 mg HS [facility] Administration Dextrose 12.5 gm 06/27/25 09:51 Dextrose 50% 25 Gm/50 Ml Syringe IV PUSH PRN PRN Hypoglycemia Protocol Epoetin Bradford-epbx 10,000 units 06/30/25 17:53 06/30/25 11:31 Epoetin Bradford-Epbx 10,000 Units/Ml Vial IV PUSH 06/30/25 17:54 10,000 units ONCE ONE Administration Ferrous Sulfate 325 mg 06/28/25 09:00 06/30/25 13:33 Ferrous Sulfate 325 Mg Tablet BY MOUTH 325 mg DAILY [facility] Administration Folic Acid 1 mg 06/28/25 09:00 06/30/25 13:32 Folic Acid 1 Mg Tablet PO 1 mg DAILY [facility] Administration Gabapentin 200 mg 06/27/25 21:00 06/29/25 21:37 Gabapentin 100 Mg Capsule PO 200 mg HS [facility] Administration Glucagon 1 mg 06/27/25 09:51 Glucagon For Inj 1 Mg Vial IM PRN PRN Hypoglycemia Protocol Glucose 15 gm 06/27/25 09:51 Glucose Oral Gel 15 Gm Of Glucse In 37.5 Gm Tube PO PRN PRN Hypoglycemia Protocol Heparin Sodium (Porcine) 5,000 units 06/26/25 21:00 06/30/25 13:11 Heparin Sodium 5,000 Units/Ml Vial SUB-Q Not Given Q12HR [facility] Dextrose 1,000 mls @ 100 mls/hr 06/27/25 09:51 Dextrose 5% 1,000 Ml IVPB PRN PRN Hypoglycemia Protocol Albumin Human 50 mls @ 999 mls/hr 06/27/25 23:00 Albutein IVPB 07/27/25 22:59 Q10M PRN HYPOTENSION Cefepime HCl 2 gm/ Sodium 50 mls @ 100 mls/hr 06/30/25 18:00 Chloride IVPB MOWEFR [facility] Ibuprofen 400 mg 06/29/25 11:38 Ibuprofen 400 Mg Tablet PO Q6H PRN Pain Rated 4-6 Insulin Aspart 2 - 5 units 06/27/25 11:30 06/30/25 08:29 Insulin Aspart (*Bkc) 100 Units/Ml SUB-Q Not Given ACHS [facility] Protocol Lidocaine/Prilocaine 1 each 06/28/25 06:10 Lidocaine/Prilocaine Cream 2.5-2.5% Tube TOPICAL WITH DIALYSIS PRN for dialysis Protocol Metronidazole 500 mg 06/30/25 14:00 06/30/25 13:33 Metronidazole 500 Mg Tablet PO 500 mg Q8HR [facility] Administration Midodrine 10 mg 06/27/25 13:00 06/30/25 13:33 Midodrine Hcl 10 Mg Tablet PO 10 mg TID [facility] Administration Mirtazapine 15 mg 06/27/25 21:00 06/29/25 21:37 Mirtazapine 15 Mg Tablet PO 15 mg HS [facility] Administration Mirtazapine 7.5 mg 06/27/25 21:00 06/29/25 21:37 Mirtazapine 7.5 Mg Tablet PO 7.5 mg HS [facility] Administration Pantoprazole Sodium 40 mg 06/26/25 21:00 06/30/25 13:12 Pantoprazole Sodium Iv 40 Mg Vial IV PUSH Not Given Q12HR [facility] Senna/Docusate Sodium 1 tab 06/27/25 09:01 Senna/Docusate Sodium Tablet PO BID PRN Constipation Sertraline HCl 50 mg 06/28/25 09:00 06/30/25 13:33 Sertraline Hcl 50 Mg Tablet PO 50 mg QAM [facility] Administration Sevelamer Carbonate 800 mg 06/27/25 17:00 06/29/25 17:42 Sevelamer Carbonate 800 Mg Tablet PO 800 mg DAILY@1700 [facility] Administration Sodium Chloride 20 ml 06/26/25 11:46 Central Line Flush IV PUSH PRN PRN after blood draws Sodium Hypochlorite 1 applic 06/27/25 21:00 06/30/25 13:34 Sod Hypochlorite 1/4 Strength 473 Ml TOPICAL 1 applic Q12HR [facility] Administration Zinc Sulfate 220 mg 06/28/25 09:00 06/30/25 13:33 Zinc Sulfate 220 Mg Capsule PO 220 mg QAM [facility] Administration Radiology Results: ITS Impressions Abdomen/Pelvis CT 06/26/25 07:59 IMPRESSION: 1. Decubitus wounds. 2. No evidence of osteomyelitis. 3. No evidence of associated abscess. 4. No acute abnormality within abdomen or pelvis. Chest X-Ray 06/28/25 08:20 Impression: CHF. Superimposed left lower lobe pneumonia suspected. The findings are progressed Labs Labs: Laboratory Tests 06/30/25 04:15 06/30/25 04:15 Calcium 8.0 L Phosphorus 2.7 Magnesium 2.1 Albumin 3.0 L Hep Bs Antigen Negative Hep Bs Antibody Negative Microbiology 06/26/25 06:22 Blood Blood Culture - Preliminary Eggerthella(Eubacterium) lenta 06/26/25 06:33 Blood Blood Culture - Preliminary Clostridium perfringens
[2025-06-30] MEDS: FOLIC ACID 1 MG TABLET PO (13:32)
[2025-06-30] MEDS: ZINC SULFATE 220 MG CAPSULE PO (13:33)
[2025-06-30] MEDS: FERROUS SULFATE 325 MG TABLET BY MOUTH (13:33)
[2025-06-30] MEDS: POTASSIUM CHLORIDE 20 MEQ PACKET (FOR LIQUID) 40 MEQ PO (13:33)
[2025-06-30] MEDS: MIDODRINE HCL 10 MG TABLET PO ×2 (13:33→17:20)
[2025-06-30] MEDS: SERTRALINE HCL 50 MG TABLET PO (13:33)
[2025-06-30] MEDS: SOD HYPOCHLORITE 1/4 STRENGTH 473 ML 1 APPLIC TOPICAL (13:34)
--- NOTE | 2025-06-30 14:34 | PM.IMPN ---
Progress Note: A&P Assessment and Plan (1) Shock: Code(s): R57.9 - Shock, unspecified Status: Acute Assessment and Plan: Patient met SIRS criteria due to RR >20, WBC >12, +fever. Presented to [facility] on 06/26 with altered mental status, hypotension, shortness of breath, and fever. Patient started on norepinephrine gtt for acute hypotension to maintain MAP >65. Shock secondary to sepsis versus cardiogenic. Given patient has history of biventricular dysfunction cardiogenic cannot be excluded, however clinical picture (fever, shortness of breath) and imaging findings concerning for pneumonia as well as the chronic decubitus ulcer more so fit the picture of sepsis. - Lactic 2.0, check procalcitonin. - IV fluids held as the patient's BNP was significantly elevated and imaging showed pulmonary edema - CXR on 06/26 showed bilateral infiltrates/pulmonary edema with possible perihilar and airspace opacity/pneumonia - started on broad-spectrum antibiotics including cefepime, vancomycin, doxycycline, and Flagyl on 06/26 to cover pneumonia and possible pathogens affecting the patient's decubitus ulcer - admission to the ICU with armored truck driver consulted - continue norepinephrine to maintain map greater than 65 (2) Pulmonary edema: Qualifiers: Chronicity: acute Qualified Code(s): J81.0 - Acute pulmonary edema Code(s): J81.1 - Chronic pulmonary edema Status: Acute Assessment and Plan: Pulmonary edema seen on CXR. Patient has history of combined systolic/diastolic CHF. Fluid balance managed via dialysis that he receives Mondays, Wednesdays, Fridays. Has not missed any treatments and has been able to receive his full treatments. - nephrology consulted for inpatient dialysis. - armored truck driver spoke with Nishi ROBERTSON, plan for dialysis today (06/26) - monitor oxygen saturations (3) Pneumonia: Qualifiers: Laterality: left Lung location: unspecified part of lung Pneumonia type: due to unspecified organism Qualified Code(s): J18.9 - Pneumonia, unspecified organism Code(s): J18.9 - Pneumonia, unspecified organism Status: Acute Assessment and Plan: - antibiotics initiated as above, see shock - blood cultures pending - MRSA PCR negative - antipyretic p.r.n. (4) Decubitus ulcer: Code(s): L89.90 - Pressure ulcer of unspecified site, unspecified stage Status: Acute Assessment and Plan: Patient has longstanding chronic decubitus ulcer. CT of the abdomen/pelvis showed no current complicating features including osteomyelitis or abscess. - general surgery consulted (5) ESRD (end stage renal disease) on dialysis: Code(s): N18.6 - End stage renal disease; Z99.2 - Dependence on renal dialysis Status: Acute Assessment and Plan: Patient has history of ESRD on hemodialysis. Receives treatment on Mondays, Wednesdays, Fridays. Per chart review, the patient was able to receive his full dialysis treatment yesterday (Saturday, 06/25). However the patient currently appears volume overloaded based off clinical exam and CXR findings. Dermatology Nurse Practitioner spoke with property maintenance supervisor, plan for dialysis today. Nephrology aware patient is currently requiring norepinephrine and currently has a mild O2 requirement. - monitor electrolytes - monitor blood pressure (6) Type 2 diabetes mellitus: Qualifiers: Chronic kidney disease stage: on chronic dialysis Diabetes mellitus complication detail: with chronic kidney disease Diabetes mellitus complication status: with kidney complications Diabetes mellitus termite inspector insulin use: without custodial use Qualified Code(s): E11.22 - Type 2 diabetes mellitus with diabetic chronic kidney disease; N18.6 - End stage renal disease; Z99.2 - Dependence on renal dialysis Code(s): E11.9 - Type 2 diabetes mellitus without complications Status: Chronic Assessment and Plan: History of type 2 diabetes complicated by ESRD, bilateral BKA, and diabetic neuropathy. - hypoglycemia protocol - POC blood glucose Q6H - hold home medications including Sevelamer and Tradjenta - correct regimen ordered - low dose Q6H - A1C 5.6% on 10/20/2024 (7) Anemia of chronic disease: Code(s): D63.8 - Anemia in other chronic diseases classified elsewhere Status: Chronic Assessment and Plan: Patient has history of anemia of chronic disease (ESRD). - Hgb 9.4 upon admission, at baseline - transfuse if <7 - monitor Plan patient with septic shock resulting in AMS presented to ER with hypotension most likely 2/2 sacral wound, patient is being treated with Cefepime, doxycycline, and Flagyl, patient clinical symptoms are improving and he is off the pressure and blood pressure is trending up, and his white counts are trending up, patient was seen by general surgery service and recommended, will require debridement of his sacral wound, patient and family has agreed. patient will be transferred out of ICU to IMU, will monitor, once clinically stable, will have PT/OT evaluate the patient and patient will benefit going to rehab. will monitor, patient family is present and gave updates. on 06/27 patient was moved out of ICU to medical floor, seen in the dialysis center, having HD stats feels better, he is scheduled to have debridement later today with general surgery, he remains clinically stable, will monitor. on 06/28 patient has his wound debridement and tolerated, patient still has episodes of confusion, agitation and restlessness, patient one bottle of blood culture is growing Clostridium perfringens, patient is being treated with Cefepime, doxycycline, Flagy, and vancomycin, white counts are tending down, and has no fever, most likely due to his pneumonia, will follow up on blood culture, will discuss with clinical pharmacist and further recommendation to follow. patient blood culture 1 bottle is growing Clostridium perfringens and another bottle is growing Eggerthella (Eubacterium) lenta sensitivity is pending, patient currently being treated with Cefepime, and Flagyl, will consult ID for further recommendations, Patient was seen by general surgery s/p debridement POD#2, patient was seen in the dialysis center, today patient is quite sleepy, apparently had not been sleeping well at night. will monitor. Home medications held as the patient is currently somnolent and A&O times 0. Made NPO. Resume home medications once mental status improved and when appropriate. Diet: NPO GI Prophylaxis: Pantoprazole IV DVT Prophylaxis: Heparin SQ IV fluids: none, concern for volume overload and plan for diuresis via HD Lines/Tubes: Peripheral IV Code Status: DNR, paperwork in patient's chart Subjective Date/time seen: 06/30/25 14:34 Interval history: AMS, Fever H&P-Narrative: 60 y/o M with PMH of iron deficiency anemia/anemia of chronic disease, pAFib, coronary artery disease s/p multiple stents and CABG, diabetes, ESRD on HD, CHF, and RISA not on CPAP presents here with altered mental status and fever. The patient presents here from [facility], [place], operated by [facility] via EMS on 06/26 for further evaluation of altered mental status fever. The patient is currently A&Ox0 and HPI was obtained through ED report and chart review. Per chart review, he was initially evaluated yesterday on 06/25 for altered mental status. Alteration was noted during his dialysis treatment, was able to receive his full dialysis treatment. Per family at that time, they reported he has been slightly more confused since starting a new pain medication. He did not receive that medication yesterday. Patient later improved during his ED evaluation and became orientated to self and place. He was discharged back to his facility with recommendations/referral for further wound care for his chronic decubitus ulcer of the sacrum. He is returning today as he has developed recurrent altered mental status and now has a fever. Upon arrival to the emergency department he was found to be febrile with a temp of 102.3? F and mildly hypotensive. Despite improvement in blood pressure, the patient remains A&Ox0. No further history or review of systems available at this time. Initial VS at presentation: 102.3? F, HR 76, R 21, 106/50, and 91% on 1L nasal cannula. Now 97% on 2 L nasal cannula. Lowest BP in the ED seen was 86/44, now on pressor. ED workup showed: WBC 13.3 9, hemoglobin 9.4 (10.9 on 06/25, at baseline), INR 1.8, sodium 136, potassium 3.4, creatinine 2.76 and GFR 23, glucose 137, lactic 2.0 H, BNP greater than 30,000, albumin 2.5. CXR showed interstitial pulmonary edema and/or pneumonitis, persistent significant bibasilar atelectasis and/or airspace disease. CT of the abdomen/pelvis showed a decubitus wound with no evidence of osteomyelitis/abscess, no acute abnormality within abdomen or pelvis. Repeat CXR post central line showed no pneumothorax and improving interstitial pulmonary edema. patient with septic shock resulting in AMS presented to ER with hypotension most likely 2/2 sacral wound, patient is being treated with Cefepime, doxycycline, and Flagyl, patient clinical symptoms are improving and he is off the pressure and blood pressure is trending up, and his white counts are trending up, patient was seen by general surgery service and recommended, will require debridement of his sacral wound, patient and family has agreed. patient will be transferred out of ICU to IMU, will monitor, once clinically stable, will have PT/OT evaluate the patient and patient will benefit going to rehab. will monitor, patient family is present and gave updates. on 06/27 patient was moved out of ICU to medical floor, seen in the dialysis center, having HD stats feels better, he is scheduled to have debridement later today with general surgery, he remains clinically stable, will monitor. on 06/28 patient had his wound debridement and tolerated, patient still has episodes of confusion, agitation and restlessness, patient one bottle of blood culture is growing Clostridium perfringens, patient is being treated with Cefepime, doxycycline, Flagy, and vancomycin, white counts are tending down, and has no fever, will follow up on blood culture, most likely due to his pneumonia,will discuss with clinical pharmacist and further recommendation to follow. patient blood culture 1 bottle is growing Clostridium perfringens and another bottle is growing Eggerthella (Eubacterium) lenta sensitivity is pending, patient currently being treated with Cefepime, and Flagyl, will consult ID for further recommendations, Patient was seen by general surgery s/p debridement POD#2, patient was seen in the dialysis center, today patient is quite sleepy, apparently had not been sleeping well at night. will monitor. Review of Systems Review of Systems: All systems reviewed & are unremarkable except as noted in HPI and below ROS unobtainable: Yes unobtainable due to mental status Exam Narrative: Patient is comfortable, NAD HEENT: eyes are clear and none icteric LUNGS:CTA HEART: RR S1S2 ABD: BS+, Soft and nontender Lower extremities: no edema SKIN: nonjaundiced Neuro: grossly intact. Objective Data Vital Signs Vital Signs: Vital Signs - 24 hr 06/29/25 14:53 06/29/25 16:00 06/29/25 19:57 Temperature 36.8 C Pulse Rate 81 63 63 Respiratory Rate 18 18 Blood Pressure 125/45 L Pulse Oximetry 95 95 Oxygen Delivery Room Air 06/29/25 20:00 06/29/25 20:21 06/30/25 00:00 Temperature 36.4 C Pulse Rate 60 60 60 Respiratory Rate 16 Blood Pressure 113/54 L Pulse Oximetry 92 Oxygen Delivery 06/30/25 04:00 06/30/25 08:00 06/30/25 08:00 Temperature Pulse Rate 54 L 53 L Respiratory Rate Blood Pressure Pulse Oximetry Oxygen Delivery Room Air 06/30/25 08:22 06/30/25 08:58 06/30/25 09:15 Temperature 36.9 C Pulse Rate 57 L 57 L 54 L Respiratory Rate 16 Blood Pressure 108/48 L 116/60 102/48 L Pulse Oximetry 99 Oxygen Delivery 06/30/25 09:30 06/30/25 09:45 06/30/25 10:00 Temperature Pulse Rate 56 L 56 L 58 L Respiratory Rate Blood Pressure 90/51 L 87/45 L 88/45 L Pulse Oximetry Oxygen Delivery 06/30/25 10:15 06/30/25 10:30 06/30/25 10:45 Temperature Pulse Rate 60 61 58 L Respiratory Rate Blood Pressure 88/45 L 98/49 L 98/46 L Pulse Oximetry Oxygen Delivery 06/30/25 11:00 06/30/25 11:15 06/30/25 11:30 Temperature Pulse Rate 59 L 62 59 L Respiratory Rate Blood Pressure 99/46 L 114/56 L 97/55 L Pulse Oximetry Oxygen Delivery 06/30/25 11:45 06/30/25 12:00 06/30/25 12:00 Temperature Pulse Rate 64 65 64 Respiratory Rate Blood Pressure 109/57 L 124/52 L Pulse Oximetry Oxygen Delivery 06/30/25 12:15 06/30/25 12:28 06/30/25 12:39 Temperature 36.5 C Pulse Rate 66 62 62 Respiratory Rate 18 Blood Pressure 113/56 L 85/43 L 98/47 L Pulse Oximetry 99 Oxygen Delivery 06/30/25 13:40 Temperature 36.1 C L Pulse Rate 67 Respiratory Rate 16 Blood Pressure 121/49 L Pulse Oximetry 97 Oxygen Delivery Intake/Output Intake/Output: Intake & Output 06/27/25 06/28/25 06/29/25 06/30/25 23:59 23:59 23:59 23:59 Intake Total 1492.8 650 910 200 Output Total 0 1989 1700 Balance 1492.8 -1340 910 -1500 Meds/Results Medications: Active Medications Generic Name Dose Route Start Last Admin Trade Name Freq PRN Reason Stop Dose Admin Acetaminophen 650 mg 06/29/25 11:38 Acetaminophen 325 Mg Tablet PO Q6H PRN Mild Pain (1-3) or Fever Atorvastatin Calcium 40 mg 06/27/25 21:00 06/29/25 21:37 Atorvastatin 40 Mg Tablet PO 40 mg HS SALVADOR Administration Dextrose 12.5 gm 06/27/25 09:51 Dextrose 50% 25 Gm/50 Ml Syringe IV PUSH PRN PRN Hypoglycemia Protocol Epoetin Bradford-epbx 10,000 units 06/30/25 17:53 06/30/25 11:31 Epoetin Bradford-Epbx 10,000 Units/Ml Vial IV PUSH 06/30/25 17:54 10,000 units ONCE ONE Administration Ferrous Sulfate 325 mg 06/28/25 09:00 06/30/25 13:33 Ferrous Sulfate 325 Mg Tablet BY MOUTH 325 mg DAILY SALVADOR Administration Folic Acid 1 mg 06/28/25 09:00 06/30/25 13:32 Folic Acid 1 Mg Tablet PO 1 mg DAILY SALVADOR Administration Gabapentin 200 mg 06/27/25 21:00 06/29/25 21:37 Gabapentin 100 Mg Capsule PO 200 mg HS SALVADOR Administration Glucagon 1 mg 06/27/25 09:51 Glucagon For Inj 1 Mg Vial IM PRN PRN Hypoglycemia Protocol Glucose 15 gm 06/27/25 09:51 Glucose Oral Gel 15 Gm Of Glucse In 37.5 Gm Tube PO PRN PRN Hypoglycemia Protocol Heparin Sodium (Porcine) 5,000 units 06/26/25 21:00 06/30/25 13:11 Heparin Sodium 5,000 Units/Ml Vial SUB-Q Not Given Q12HR [facility] Dextrose 1,000 mls @ 100 mls/hr 06/27/25 09:51 Dextrose 5% 1,000 Ml IVPB PRN PRN Hypoglycemia Protocol Albumin Human 50 mls @ 999 mls/hr 06/27/25 23:00 Albutein IVPB 07/27/25 22:59 Q10M PRN HYPOTENSION Cefepime HCl 2 gm/ Sodium 50 mls @ 100 mls/hr 06/30/25 18:00 Chloride IVPB MOWEFR [facility] Ibuprofen 400 mg 06/29/25 11:38 Ibuprofen 400 Mg Tablet PO Q6H PRN Pain Rated 4-6 Insulin Aspart 2 - 5 units 06/27/25 11:30 06/30/25 08:29 Insulin Aspart (*Bkc) 100 Units/Ml SUB-Q Not Given ACHS [facility] Protocol Lidocaine/Prilocaine 1 each 06/28/25 06:10 Lidocaine/Prilocaine Cream 2.5-2.5% Tube TOPICAL WITH DIALYSIS PRN for dialysis Protocol Metronidazole 500 mg 06/30/25 14:00 06/30/25 13:33 Metronidazole 500 Mg Tablet PO 500 mg Q8HR [facility]OR Administration Midodrine 10 mg 06/27/25 13:00 06/30/25 13:33 Midodrine Hcl 10 Mg Tablet PO 10 mg TID SALVADOR Administration Mirtazapine 15 mg 06/27/25 21:00 06/29/25 21:37 Mirtazapine 15 Mg Tablet PO 15 mg HS SALVADOR Administration Mirtazapine 7.5 mg 06/27/25 21:00 06/29/25 21:37 Mirtazapine 7.5 Mg Tablet PO 7.5 mg HS SALVADOR Administration Pantoprazole Sodium 40 mg 06/26/25 21:00 06/30/25 13:12 Pantoprazole Sodium Iv 40 Mg Vial IV PUSH Not Given Q12HR [facility]OR Senna/Docusate Sodium 1 tab 06/27/25 09:01 Senna/Docusate Sodium Tablet PO BID PRN Constipation Sertraline HCl 50 mg 06/28/25 09:00 06/30/25 13:33 Sertraline Hcl 50 Mg Tablet PO 50 mg QAM [facility] Administration Sevelamer Carbonate 800 mg 06/27/25 17:00 06/29/25 17:42 Sevelamer Carbonate 800 Mg Tablet PO 800 mg DAILY@1700 [facility]OR Administration Sodium Chloride 20 ml 06/26/25 11:46 Central Line Flush IV PUSH PRN PRN after blood draws Sodium Hypochlorite 1 applic 06/27/25 21:00 06/30/25 13:34 Sod Hypochlorite 1/4 Strength 473 Ml TOPICAL 1 applic Q12HR [facility]OR Administration Zinc Sulfate 220 mg 06/28/25 09:00 06/30/25 13:33 Zinc Sulfate 220 Mg Capsule PO 220 mg QAM SALVADOR Administration Radiology Results: ITS Impressions Abdomen/Pelvis CT 06/26/25 07:59 IMPRESSION: 1. Decubitus wounds. 2. No evidence of osteomyelitis. 3. No evidence of associated abscess. 4. No acute abnormality within abdomen or pelvis. Chest X-Ray 06/28/25 08:20 Impression: CHF. Superimposed left lower lobe pneumonia suspected. The findings are progressed Labs Labs: Laboratory Results - last 24 hr 06/29/25 06/29/25 06/30/25 17:09 20:15 04:15 WBC 4.9 RBC 3.02 L Hgb 9.1 L Hct 30.2 L MCV 100.0 MCH 30.1 MCHC 30.1 L RDW 18.2 H Plt Count 84 L MPV 13.4 H % Immature Plt Fraction 4.9 Sodium 141 Potassium 3.1 L Chloride 105 Carbon Dioxide 26 Anion Gap 10 BUN 26 H Creatinine 3.84 H Estim Creat Clear Calc Not Reportable Estimated GFR 16 L Glucose 114 H POC Capillary Glucose 190 H 194 H Calcium 8.0 L Phosphorus 2.7 Magnesium 2.1 Albumin 3.0 L Hep Bs Antigen Negative Hep Bs Antibody Negative 06/30/25 06/30/25 07:58 14:02 WBC RBC Hgb Hct MCV MCH MCHC RDW Plt Count MPV % Immature Plt Fraction Sodium Potassium Chloride Carbon Dioxide Anion Gap BUN Creatinine Estim Creat Clear Calc Estimated GFR Glucose POC Capillary Glucose 111 H 97 Calcium Phosphorus Magnesium Albumin Hep Bs Antigen Hep Bs Antibody Quality VTE Prophylaxis VTE prophylaxis: pharmacologic ordered
[2025-06-30] MEDS: SEVELAMER CARBONATE 800 MG TABLET PO (17:20)
[2025-06-30] MEDS: CEFEPIME 2 GM in SODIUM CHLORIDE 0.9% IV 50 ML 100 ML IVPB (17:30)
--- NOTE | 2025-06-30 17:52 | WPDIDCN ---
Assessment and Plan Assessment and plan (1) Decubitus ulcer: Qualifiers: Pressure injury location: sacral region Pressure injury stage: stage 4 Qualified Code(s): L89.154 - Pressure ulcer of sacral region, stage 4 Code(s): L89.90 - Pressure ulcer of unspecified site, unspecified stage Status: Acute (2) ESRD (end stage renal disease) on dialysis: Code(s): N18.6 - End stage renal disease; Z99.2 - Dependence on renal dialysis Status: Acute Assessment and Plan: ASSESSMENT: 1. sacral decubitis s/p I&D--wound down to bone; imaging neg for osteomyelitis 2. clostridium perfringers and Eggerthelia bacteremia--likely 2nd to #1 3. ESRD on HD via RUE AVF 4. DM 5. afib 6. CAD s/p CABG 7. heart failure 8. penicillin allergy-->unknown reaction 9. s/p bilateral BKAs RECOMMENDATIONS -f/u on repeat blood cxs to ensure clearance -change abx to IV cefepimw with HD and po flagyl--if blood cxs clear would treat for 4 weeks -check ESR and CRP and monitor q week -need to boost nutrition d/w pharmacy staff Pt was seen via video telehealth consult with the assistance of staff. Chart, data, and patient interview independently reviewed by me. Pt was located at [facility] while I was in my [place] office. Pt gave verbal consent. HPI Data of Consult Date/Time: 06/30/25 17:52 Requesting Physician: Amaury Espinosa MD Primary Care Provider: Theodore Solis, Consult Narrative Reason for consult: sacral wound and bacteremia Narrative: Kobi Salter is a 60 year old male with a pmhx/o ESRD on HD, CAD s/p CABG, heart failure, DM, Afib, presented to hospital with AMS and fever with shock. Blood cxs positive for clostridium perfringens and Eggethelia. Had I&D a couple days ago--wound down to bone. No osteomyelitis per imaging. [facility] Past Medical History Medical History Type 2 diabetes mellitus COPD (chronic obstructive pulmonary disease) Intracardiac thrombus PVD (peripheral vascular disease) Coronary artery disease History of multiple stents and 4 vessel bypass. Combined systolic and diastolic congestive heart failure Iron deficiency anemia MRSA infection Clostridium difficile diarrhea Paroxysmal atrial fibrillation Transient atrial fibrillation following bypass surgery. Hyperlipidemia End-stage renal disease on hemodialysis Anxiety and depression Obstructive sleep apnea does not use a CPAP Anemia of chronic disease Diabetic nephropathy Diabetic peripheral neuropathy Arthritis Surgical History Surgical History History of right below knee amputation History of five vessel coronary artery bypass (2018) [facility] History of cataract extraction with lens replacement History of coronary artery stent placement History of cardiac catheterization History of left below knee amputation History of amputation of toe left 5th toe 2013 small toe on the right amputated Family History Family History Sibling Patient's sister is Diabetes mellitus Sister Acute myocardial infarction Three brothers and 2 sisters History of blood clots Sister Abdominal aortic aneurysm Sister Dementia Brother COPD (chronic obstructive pulmonary disease) Brother Father Acute myocardial infarction, Onset Age: 65 Mother History of blood clots Hypertension, Onset Age: 80 Social History Social History Social History: Surrogate medical decision maker: Melodie Roca (niece) or Alejandra Murray (sister). Code status: DNR/DNI Smoking packs per day: 0.25 Smoking cigarettes per day: 5.0 Years smoked: 30 Smoking pack-years: 7.50 Smoking status: Former smoker Alcohol intake: never Drinks per week: 2 Alcohol use details: Social alcohol use. Substance use: never Substance use type: does not use Last use: 2019 Do You Feel Safe in your Home?: Yes Lack of Transportation: No Lack of Food: Never True Current Housing: I Have Housing Concerned About Future Housing: No Difficulty Paying Gas/Electric Bills: No Difficulty Paying for Meds: No Currently Unemployed: No Education: Don't Know Difficulty w/ Childcare or Family Care: No Additional living arrangements comments: [facility]. Additional occupation/education comments: Disabled. Spiritual care concerns: No Meds Home Medications and Allergies Home Medications ?Medication ?Instructions ?Recorded ?Confirmed ?Type ferrous sulfate 325 mg (65 mg 325 mg PO DAILY 06/01/20 06/26/25 History iron) tablet nitroglycerin 0.4 mg sublingual 0.4 mg sublingual Q5-15M PRN Chest 06/01/20 06/26/25 History tablet Pain atorvastatin 40 mg tablet (Lipitor) 40 mg PO HS 12/23/20 06/26/25 History folic acid 1 mg tablet 1 mg PO DAILY 12/23/20 06/26/25 History gabapentin 100 mg tablet 200 mg PO HS 12/23/20 06/26/25 History sevelamer carbonate 800 mg tablet 800 mg PO DAILY@1700 12/23/20 06/26/25 History tamsulosin 0.4 mg capsule (Flomax) 0.4 mg PO DAILY 12/23/20 06/26/25 History linagliptin 5 mg tablet (Tradjenta) 5 mg PO DAILY 01/13/23 06/26/25 History mirtazapine 15 mg tablet 15 mg PO HS 01/13/23 06/26/25 History sertraline 50 mg tablet 50 mg PO QAM 01/13/23 06/26/25 History midodrine 10 mg tablet 10 mg PO BID 09/17/23 06/26/25 History acetaminophen 325 mg tablet 650 mg PO Q6H PRN Pain (Scale 10/29/23 06/26/25 History (Tylenol) Score 1-3) naloxone 4 mg/actuation nasal spray 1 spray intranasal Q3M PRN Opioid 10/29/23 06/26/25 History Overdose sennosides 8.6 mg-docusate sodium 1 tablet PO BID PRN Constipation 10/29/23 06/26/25 History 50 mg tablet (Senna Plus) diphenoxylate-atropine 2.5 2 tablet PO TID PRN Diarrhea #15 03/06/24 06/26/25 Rx mg-0.025 mg tablet (Lomotil) tabs tramadol 50 mg tablet 50 mg PO Q4H PRN Pain (Scale Score 03/06/24 06/26/25 Rx 4-6) #15 tabs ascorbic acid (vitamin C) 500 mg 500 mg PO Q12H 03/10/25 06/26/25 History tablet famotidine 20 mg tablet 20 mg PO Q12H 03/10/25 06/26/25 History mirtazapine 7.5 mg tablet 7.5 mg PO HS 03/10/25 06/26/25 History tizanidine 2 mg tablet 2 mg PO Q12H 03/10/25 06/26/25 History vitamin B complex-vitamin C-folic 1 tablet PO DAILY 03/10/25 06/26/25 History acid 0.8 mg tablet (Nephro-[place]) zinc sulfate 220 mg capsule 220 mg PO DAILY 03/10/25 06/26/25 History aspirin 325 mg tablet,delayed 325 mg PO QAM #30 tabs 03/17/25 06/26/25 Rx release collagenase clostridium histo. 250 1 applic topical DAILY 06/26/25 06/26/25 History unit/gram topical ointment (Santyl) tizanidine 2 mg tablet 2 mg PO TID 06/26/25 06/26/25 History Allergies Allergy/AdvReac Type Severity Reaction Status Date / Time Penicillins Allergy Unknown Unknown Verified 06/28/25 15:20 bee venom protein (honey bee) Allergy Swelling Verified 06/28/25 15:20 Vital Signs Vital Signs - 24 hr 06/29/25 19:57 06/29/25 20:00 06/29/25 20:21 Temperature 97.6 F Pulse Rate 63 60 60 Respiratory Rate 18 16 Blood Pressure 113/54 L Pulse Oximetry 95 92 Oxygen Delivery Room Air 06/30/25 00:00 06/30/25 04:00 06/30/25 08:00 Temperature Pulse Rate 60 54 L 53 L Respiratory Rate Blood Pressure Pulse Oximetry Oxygen Delivery 06/30/25 08:00 06/30/25 08:22 06/30/25 08:58 Temperature 98.4 F Pulse Rate 57 L 57 L Respiratory Rate 16 Blood Pressure 108/48 L 116/60 Pulse Oximetry 99 Oxygen Delivery Room Air 06/30/25 09:15 06/30/25 09:30 06/30/25 09:45 Temperature Pulse Rate 54 L 56 L 56 L Respiratory Rate Blood Pressure 102/48 L 90/51 L 87/45 L Pulse Oximetry Oxygen Delivery 06/30/25 10:00 06/30/25 10:15 06/30/25 10:30 Temperature Pulse Rate 58 L 60 61 Respiratory Rate Blood Pressure 88/45 L 88/45 L 98/49 L Pulse Oximetry Oxygen Delivery 06/30/25 10:45 06/30/25 11:00 06/30/25 11:15 Temperature Pulse Rate 58 L 59 L 62 Respiratory Rate Blood Pressure 98/46 L 99/46 L 114/56 L Pulse Oximetry Oxygen Delivery 06/30/25 11:30 06/30/25 11:45 06/30/25 12:00 Temperature Pulse Rate 59 L 64 65 Respiratory Rate Blood Pressure 97/55 L 109/57 L Pulse Oximetry Oxygen Delivery 06/30/25 12:00 06/30/25 12:15 06/30/25 12:28 Temperature Pulse Rate 64 66 62 Respiratory Rate Blood Pressure 124/52 L 113/56 L 85/43 L Pulse Oximetry Oxygen Delivery 06/30/25 12:39 06/30/25 13:40 06/30/25 16:00 Temperature 97.7 F 97.0 F L Pulse Rate 62 67 65 Respiratory Rate 18 16 Blood Pressure 98/47 L 121/49 L Pulse Oximetry 99 97 Oxygen Delivery Exam Narrative: NAD, on room air RUE AVF bilateral BKAs sacral wound wiht slough at base; some periwound erythema. No eschar currently Results Labs 06/30/25 04:15 06/30/25 04:15 Labs: Short CBC 06/30/25 Range/Units 04:15 WBC 4.9 (4.5-10.0) K/mm3 Hgb 9.1 L (14.0-18.0) g/dL Hct 30.2 L (42.0-52.0) % Plt Count 84 L (150-375) k/mm3 BMP 06/30/25 04:15 Sodium 141 Potassium 3.1 L Chloride 105 Carbon Dioxide 26 BUN 26 H Creatinine 3.84 H Glucose 114 H Calcium 8.0 L Liver Function 06/30/25 Range/Units 04:15 Albumin 3.0 L (3.5-5.1) g/dL
[2025-06-30 19:53] LABS: CRP 4.5 mg/dL (<1.0)
[2025-06-30] MEDS: MIRTAZAPINE 7.5 MG TABLET PO (21:13)
[2025-06-30] MEDS: PANTOPRAZOLE SODIUM IV 40 MG VIAL IV PUSH (21:13)
[2025-06-30] MEDS: MIRTAZAPINE 15 MG TABLET PO (21:13)
[2025-06-30] MEDS: GABAPENTIN 100 MG CAPSULE 200 MG PO (21:13)
[2025-06-30] MEDS: ATORVASTATIN 40 MG TABLET PO (21:13)
[2025-07-01] VITALS (10 sets, daily range): BP systolic 110–122; BP diastolic 44–53; PULSE 58–76; RESP 18; TEMP 36.2–36.8; O2SAT 97–99
[2025-07-01] MEDS: SOD HYPOCHLORITE 1/4 STRENGTH 473 ML 1 APPLIC TOPICAL ×3 (04:00→20:44)
[2025-07-01 04:53] LABS: Hematocrit 35.3 % (42.0-52.0); Hemoglobin 10.6 g/dL (14.0-18.0); Immature Platelet Fraction Pct 6.5 % (0.9-11.2); Mean Corpuscular HGB Conc 30.0 g/dl (32-36); Mean Corpuscular Hemoglobin 30.5 pg (26-34); Mean Corpuscular Volume 101.4 fl (80-100); Platelet Count Result 91 k/mm3 (150-375); Red Blood Count 3.48 M/mm3 (4.6-6.20); White Blood Count 5.6 K/mm3 (4.5-10.0)
[2025-07-01 05:16] LABS: Albumin Level 3.2 g/dL (3.5-5.1); Anion Gap 9 mmol/L (4-12); Blood Urea Nitrogen 15 mg/dL (9-20); Calcium 8.6 mg/dL (8.4-10.2); Carbon Dioxide 27 mmol/L (22-30); Chloride 104 mmol/L (98-107); Estimated Glomerular Filt Rate 26; Glucose 100 mg/dL (65-110); Magnesium 2.2 mg/dL (1.6-2.3); Potassium 4.0 mmol/L (3.4-5.0); Sodium 140 mmol/L (137-145)
[2025-07-01] MEDS: FOLIC ACID 1 MG TABLET PO (08:28)
[2025-07-01] MEDS: FERROUS SULFATE 325 MG TABLET BY MOUTH (08:28)
[2025-07-01] MEDS: ZINC SULFATE 220 MG CAPSULE PO (08:29)
[2025-07-01] MEDS: SERTRALINE HCL 50 MG TABLET PO (08:29)
[2025-07-01] MEDS: MIDODRINE HCL 10 MG TABLET PO ×3 (08:29→16:27)
[2025-07-01] MEDS: PANTOPRAZOLE SODIUM IV 40 MG VIAL IV PUSH ×2 (08:30→20:44)
--- NOTE | 2025-07-01 11:38 | P.PNIM_ITS ---
Progress Note: A&P Assessment and Plan (1) Shock: Code(s): R57.9 - Shock, unspecified Status: Acute Assessment and Plan: Patient met SIRS criteria due to RR >20, WBC >12, +fever. Presented to [facility] on 06/26 with altered mental status, hypotension, shortness of breath, and fever. Patient started on norepinephrine gtt for acute hypotension to maintain MAP >65. Shock secondary to sepsis versus cardiogenic. Given patient has history of biventricular dysfunction cardiogenic cannot be excluded, however clinical picture (fever, shortness of breath) and imaging findings concerning for pneumonia as well as the chronic decubitus ulcer more so fit the picture of sepsis. - Lactic 2.0, check procalcitonin. - IV fluids held as the patient's BNP was significantly elevated and imaging showed pulmonary edema - CXR on 06/26 showed bilateral infiltrates/pulmonary edema with possible perihilar and airspace opacity/pneumonia - started on broad-spectrum antibiotics including cefepime, vancomycin, doxycycl ine, and Flagyl on 06/26 to cover pneumonia and possible pathogens affecting the patient's decubitus ulcer - admission to the ICU with cistern room working supervisor consulted - continue norepinephrine to maintain map greater than 65 (2) Pulmonary edema: Qualifiers: Chronicity: acute Qualified Code(s): J81.0 - Acute pulmonary edema Code(s): J81.1 - Chronic pulmonary edema Status: Acute Assessment and Plan: Pulmonary edema seen on CXR. Patient has history of combined systolic/diastolic CHF. Fluid balance managed via dialysis that he receives Mondays, Wednesdays, Fridays. Has not missed any treatments and has been able to receive his full treatments. - nephrology consulted for inpatient dialysis. - cistern room working supervisor spoke with Nishi ROBERTSON, plan for dialysis today (06/26) - monitor oxygen saturations (3) Pneumonia: Qualifiers: Laterality: left Lung location: unspecified part of lung Pneumonia type: due to unspecified organism Qualified Code(s): J18.9 - Pneumonia, unspecified organism Code(s): J18.9 - Pneumonia, unspecified organism Status: Acute Assessment and Plan: - antibiotics initiated as above, see shock - blood cultures pending - MRSA PCR negative - antipyretic p.r.n. (4) Decubitus ulcer: Code(s): L89.90 - Pressure ulcer of unspecified site, unspecified stage Status: Acute Assessment and Plan: Patient has longstanding chronic decubitus ulcer. CT of the abdomen/pelvis showed no current complicating features including osteomyelitis or abscess. - general surgery consulted (5) ESRD (end stage renal disease) on dialysis: Code(s): N18.6 - End stage renal disease; Z99.2 - Dependence on renal dialysis Status: Acute Assessment and Plan: Patient has history of ESRD on hemodialysis. Receives treatment on Mondays, Wednesdays, Fridays. Per chart review, the patient was able to receive his full dialysis treatment yesterday (Saturday, 06/25). However the patient currently appears volume overloaded based off clinical exam and CXR findings. Immigration Paralegal spoke with pilot boat operator, plan for dialysis today. Nephrology aware patient is currently requiring norepinephrine and currently has a mild O2 requirement. - monitor electrolytes - monitor blood pressure (6) Type 2 diabetes mellitus: Qualifiers: Diabetes mellitus superintendent terminal insulin use: without retirement use Diabetes mellitus complication status: with kidney complications Diabetes mellitus complication detail: with chronic kidney disease Chronic kidney disease stage: on chronic dialysis Qualified Code(s): E11.22 - Type 2 diabetes mellitus with diabetic chronic kidney disease; N18.6 - End stage renal disease; Z99.2 - Dependence on renal dialysis Code(s): E11.9 - Type 2 diabetes mellitus without complications Status: Chronic Assessment and Plan: History of type 2 diabetes complicated by ESRD, bilateral BKA, and diabetic neuropathy. - hypoglycemia protocol - POC blood glucose Q6H - hold home medications including Sevelamer and Tradjenta - correct regimen ordered - low dose Q6H - A1C 5.6% on 10/20/2024 (7) Anemia of chronic disease: Code(s): D63.8 - Anemia in other chronic diseases classified elsewhere Status: Chronic Assessment and Plan: Patient has history of anemia of chronic disease (ESRD). - Hgb 9.4 upon admission, at baseline - transfuse if <7 - monitor Plan patient with septic shock resulting in AMS presented to ER with hypotension most likely 2/2 sacral wound, patient is being treated with Cefepime, doxycycline, and Flagyl, patient clinical symptoms are improving and he is off the pressure and blood pressure is trending up, and his white counts are trending up, patient was seen by general surgery service and recommended, will require debridement of his sacral wound, patient and family has agreed. patient will be transferred out of ICU to IMU, will monitor, once clinically stable, will have PT/OT evaluate the patient and patient will benefit going to rehab. will monitor, patient family is present and gave updates. on 06/27 patient was moved out of ICU to medical floor, seen in the dialysis center, having HD stats feels better, he is scheduled to have debridement later today with general surgery, he remains clinically stable, will monitor. on 06/28 patient has his wound debridement and tolerated, patient still has episodes of confusion, agitation and restlessness, patient one bottle of blood culture is growing Clostridium perfringens, patient is being treated with Cefepime, doxycycline, Flagy, and vancomycin, white counts are tending down, and has no fever, most likely due to his pneumonia, will follow up on blood culture, will discuss with clinical pharmacist and further recommendation to follow. patient blood culture 1 bottle is growing Clostridium perfringens and another bottle is growing Eggerthella (Eubacterium) lenta sensitivity is pending, patient currently being treated with Cefepime, and Flagyl, seen by ID recommended to give Cefepime with HD, and switch Flagyle to PO, Patient was seen by general surgery s/p debridement POD#3, today patient is more alert and able to communicate, will monitor. Home medications held as the patient is currently somnolent and A&O times 0. Made NPO. Resume home medications once mental status improved and when appropriate. Diet: NPO GI Prophylaxis: Pantoprazole IV DVT Prophylaxis: Heparin SQ IV fluids: none, concern for volume overload and plan for diuresis via HD Lines/Tubes: Peripheral IV Code Status: DNR, paperwork in patient's chart Subjective Date/time seen: 07/01/25 11:38 Interval history: AMS, Fever H&P-Narrative: 60 y/o M with PMH of iron deficiency anemia/anemia of chronic disease, pAFib, coronary artery disease s/p multiple stents and CABG, diabetes, ESRD on HD, CHF, and RISA not on CPAP presents here with altered mental status and fever. The patient presents here from [facility] via EMS on 06/26 for further evaluation of altered mental status fever. The patient is currently A&Ox0 and HPI was obtained through ED report and chart review. Per chart review, he was initially evaluated yesterday on 06/25 for altered mental status. Alteration was noted during his dialysis treatment, was able to receive his full dialysis treatment. Per family at that time, they reported he has been slightly more confused since starting a new pain medication. He did not receive that medication yesterday. Patient later improved during his ED evaluation and became orientated to self and place. He was discharged back to his facility with recommendations/referral for further wound care for his chronic decubitus ulcer of the sacrum. He is returning today as he has developed recurrent altered mental status and now has a fever. Upon arrival to the emergency department he was found to be febrile with a temp of 102.3? F and mildly hypotensive. Despite improvement in blood pressure, the patient remains A&Ox0. No further history or review of systems available at this time. Initial VS at presentation: 102.3? F, HR 76, R 21, 106/50, and 91% on 1L nasal cannula. Now 97% on 2 L nasal cannula. Lowest BP in the ED seen was 86/44, now on pressor. ED workup showed: WBC 13.3 9, hemoglobin 9.4 (10.9 on 06/25, at baseline), INR 1.8, sodium 136, potassium 3.4, creatinine 2.76 and GFR 23, glucose 137, lactic 2.0 H, BNP greater than 30,000, albumin 2.5. CXR showed interstitial pulmonary edema and/or pneumonitis, persistent significant bibasilar atelectasis and/or a irspace disease. CT of the abdomen/pelvis showed a decubitus wound with no evidence of osteomyelitis/abscess, no acute abnormality within abdomen or pelvis. Repeat CXR post central line showed no pneumothorax and improving interstitial pulmonary edema. patient with septic shock resulting in AMS presented to ER with hypotension most likely 2/2 sacral wound, patient is being treated with Cefepime, doxycycline, and Flagyl, patient clinical symptoms are improving and he is off the pressure and blood pressure is trending up, and his white counts are trending up, patient was seen by general surgery service and recommended, will require debridement of his sacral wound, patient and family has agreed. patient will be transferred out of ICU to IMU, will monitor, once clinically stable, will have PT/OT evaluate the patient and patient will benefit going to rehab. will monitor, patient family is present and gave updates. on 06/27 patient was moved out of ICU to medical floor, seen in the dialysis center, having HD stats feels better, he is scheduled to have debridement later today with general surgery, he remains clinically stable, will monitor. on 06/28 patient had his wound debridement and tolerated, patient still has episodes of confusion, agitation and restlessness, patient one bottle of blood culture is growing Clostridium perfringens, patient is being treated with Cefepime, doxycycline, Flagy, and vancomycin, white counts are tending down, and has no fever, will follow up on blood culture, most likely due to his pneumonia,will discuss with clinical pharmacist and further recommendation to follow. patient blood culture 1 bottle is growing Clostridium perfringens and another bottle is growing Eggerthella (Eubacterium) lenta sensitivity is pending, patient currently being treated with Cefepime, and Flagyl, seen by ID recommended to give Cefepime with HD, and switch Flagyle to PO, Patient was seen by general surgery s/p debridement POD#3, today patient is more alert and able to communicate, will monitor. Review of Systems Review of Systems: All systems reviewed & are unremarkable except as noted in HPI and below ROS unobtainable: Yes unobtainable due to mental status Exam Narrative: Patient is comfortable, NAD HEENT: eyes are clear and none icteric LUNGS:CTA HEART: RR S1S2 ABD: BS+, Soft and nontender Lower extremities: no edema SKIN: nonjaundiced Neuro: grossly intact. Objective Data Vital Signs Vital Signs: Vital Signs - 24 hr 06/30/25 11:45 06/30/25 12:00 06/30/25 12:00 Temperature Pulse Rate 64 65 64 Respiratory Rate Blood Pressure 109/57 L 124/52 L Pulse Oximetry Oxygen Delivery 06/30/25 12:15 06/30/25 12:28 06/30/25 12:39 Temperature 36.5 C Pulse Rate 66 62 62 Respiratory Rate 18 Blood Pressure 113/56 L 85/43 L 98/47 L Pulse Oximetry 99 Oxygen Delivery 06/30/25 13:40 06/30/25 16:00 06/30/25 20:00 Temperature 36.1 C L Pulse Rate 67 65 69 Respiratory Rate 16 Blood Pressure 121/49 L Pulse Oximetry 97 Oxygen Delivery 06/30/25 20:00 06/30/25 22:00 07/01/25 00:00 Temperature 36.3 C L Pulse Rate 72 64 Respiratory Rate 18 Blood Pressure 118/47 L Pulse Oximetry 97 Oxygen Delivery Room Air 07/01/25 04:00 07/01/25 06:00 07/01/25 08:00 Temperature 36.2 C L Pulse Rate 65 65 67 Respiratory Rate 18 Blood Pressure 110/44 L Pulse Oximetry 97 Oxygen Delivery 07/01/25 08:30 Temperature Pulse Rate Respiratory Rate Blood Pressure Pulse Oximetry Oxygen Delivery Room Air Intake/Output Intake/Output: Intake & Output 06/28/25 06/29/25 06/30/25 07/01/25 23:59 23:59 23:59 23:59 Intake Total 910 470 240 Output Total 19890 Balance -1340 910 -1230 240 Meds/Results Medications: Active Medications Generic Name Dose Route Start Last Admin Trade Name Freq PRN Reason Stop Dose Admin Acetaminophen 650 mg 06/29/25 11:38 Acetaminophen 325 Mg Tablet PO Q6H PRN Mild Pain (1-3) or Fever Atorvastatin Calcium 40 mg 06/27/25 21:00 06/30/25 21:13 Atorvastatin 40 Mg Tablet PO 40 mg HS SALVADOR Administration Dextrose 12.5 gm 06/27/25 09:51 Dextrose 50% 25 Gm/50 Ml Syringe IV PUSH PRN PRN Hypoglycemia Protocol Ferrous Sulfate 325 mg 06/28/25 09:00 07/01/25 08:28 Ferrous Sulfate 325 Mg Tablet BY MOUTH 325 mg DAILY SALVADOR Administration Folic Acid 1 mg 06/28/25 09:00 07/01/25 08:28 Folic Acid 1 Mg Tablet PO 1 mg DAILY SALVADOR Administration Gabapentin 200 mg 06/27/25 21:00 06/30/25 21:13 Gabapentin 100 Mg Capsule PO 200 mg HS SALVADOR Administration Glucagon 1 mg 06/27/25 09:51 Glucagon For Inj 1 Mg Vial IM PRN PRN Hypoglycemia Protocol Glucose 15 gm 06/27/25 09:51 Glucose Oral Gel 15 Gm Of Glucse In 37.5 Gm Tube PO PRN PRN Hypoglycemia Protocol Heparin Sodium (Porcine) 5,000 units 06/26/25 21:00 07/01/25 08:29 Heparin Sodium 5,000 Units/Ml Vial SUB-Q 5,000 units Q12HR SALVADOR Administration Dextrose 1,000 mls @ 100 mls/hr 06/27/25 09:51 Dextrose 5% 1,000 Ml IVPB PRN PRN Hypoglycemia Protocol Albumin Human 50 mls @ 999 mls/hr 06/27/25 23:00 Albutein IVPB 07/27/25 22:59 Q10M PRN HYPOTENSION Cefepime HCl 2 gm/ Sodium 50 mls @ 100 mls/hr 06/30/25 18:00 06/30/25 18:00 Chloride IVPB Infused MOWEFR SALVADOR Infusion Ibuprofen 400 mg 06/29/25 11:38 Ibuprofen 400 Mg Tablet PO Q6H PRN Pain Rated 4-6 Insulin Aspart 2 - 5 units 06/27/25 11:30 07/01/25 08:10 Insulin Aspart (*Bkc) 100 Units/Ml SUB-Q Not Given ACHS SALVADOR Protocol Lidocaine/Prilocaine 1 each 06/28/25 06:10 Lidocaine/Prilocaine Cream 2.5-2.5% Tube TOPICAL WITH DIALYSIS PRN for dialysis Protocol Metronidazole 500 mg 06/30/25 14:00 07/01/25 05:32 Metronidazole 500 Mg Tablet PO 500 mg Q8HR SALVADOR Administration Midodrine 10 mg 06/27/25 13:00 07/01/25 08:29 Midodrine Hcl 10 Mg Tablet PO 10 mg TID SALVADOR Administration Mirtazapine 15 mg 06/27/25 21:00 06/30/25 21:13 Mirtazapine 15 Mg Tablet PO 15 mg HS SALVADOR Administration Mirtazapine 7.5 mg 06/27/25 21:00 06/30/25 21:13 Mirtazapine 7.5 Mg Tablet PO 7.5 mg HS SALVADOR Administration Pantoprazole Sodium 40 mg 06/26/25 21:00 07/01/25 08:30 Pantoprazole Sodium Iv 40 Mg Vial IV PUSH 40 mg Q12HR SALVADOR Administration Senna/Docusate Sodium 1 tab 06/27/25 09:01 Senna/Docusate Sodium Tablet PO BID PRN Constipation Sertraline HCl 50 mg 06/28/25 09:00 07/01/25 08:29 Sertraline Hcl 50 Mg Tablet PO 50 mg QAM SALVADOR Administration Sevelamer Carbonate 800 mg 06/27/25 17:00 06/30/25 17:20 Sevelamer Carbonate 800 Mg Tablet PO 800 mg DAILY@1700 SALVADOR Administration Sodium Chloride 20 ml 06/26/25 11:46 Central Line Flush IV PUSH PRN PRN after blood draws Sodium Hypochlorite 1 applic 06/27/25 21:00 07/01/25 08:31 Sod Hypochlorite 1/4 Strength 473 Ml TOPICAL 1 applic Q12HR SALVADOR Administration Zinc Sulfate 220 mg 06/28/25 09:00 07/01/25 08:29 Zinc Sulfate 220 Mg Capsule PO 220 mg QAM SALVADOR Administration Radiology Results: ITS Impressions Abdomen/Pelvis CT 06/26/25 07:59 IMPRESSION: 1. Decubitus wounds. 2. No evidence of osteomyelitis. 3. No evidence of associated abscess. 4. No acute abnormality within abdomen or pelvis. Chest X-Ray 06/28/25 08:20 Impression: CHF. Superimposed left lower lobe pneumonia suspected. The findings are progressed Labs Labs: Laboratory Results - last 24 hr 06/30/25 06/30/25 06/30/25 14:02 17:25 19:30 WBC RBC Hgb Hct MCV MCH MCHC RDW Plt Count MPV % Immature Plt Fraction ESR 74 H Sodium Potassium Chloride Carbon Dioxide Anion Gap BUN Creatinine Estim Creat Clear Calc Estimated GFR Glucose POC Capillary Glucose 97 108 H Calcium Phosphorus Magnesium C-Reactive Protein 4.5 H Albumin 06/30/25 07/01/25 07/01/25 21:22 03:58 07:42 WBC 5.6 RBC 3.48 L Hgb 10.6 L Hct 35.3 L MCV 101.4 H MCH 30.5 MCHC 30.0 L RDW 18.6 H Plt Count 91 L MPV 13.4 H % Immature Plt Fraction 6.5 ESR Sodium 140 Potassium 4.0 Chloride 104 Carbon Dioxide 27 Anion Gap 9 BUN 15 D Creatinine 2.51 H Estim Creat Clear Calc Not Reportable Estimated GFR 26 L Glucose 100 POC Capillary Glucose 155 H 125 H Calcium 8.6 Phosphorus 2.2 L Magnesium 2.2 C-Reactive Protein Albumin 3.2 L Quality VTE Prophylaxis VTE prophylaxis: pharmacologic ordered
--- NOTE | 2025-07-01 12:50 | P.PNNP_ITS ---
Progress Note: A&P Assessment and Plan (1) ESRD (end stage renal disease): Code(s): N18.6 - End stage renal disease Status: Chronic Assessment and Plan: * HD tomorrow * continue M/W/F schedule while hospitalized * follow electrolytes, volume status, and clearance (2) Hypotension: Code(s): I95.9 - Hypotension, unspecified Status: Acute Assessment and Plan: * some degree of chronicity with regard to this issue * on midodrine as an outpatient * suspect acute worsening due to infection (sacral decubitus ulcer + pneumonia) * associated with fever, leukocytosis, altered mental status and shortness of breath on admission * initially on vasopressor therapy but weaned off * resumed on midodrine therapy (3) Decubitus ulcer: Code(s): L89.90 - Pressure ulcer of unspecified site, unspecified stage Status: Acute Assessment and Plan: * significant amount of drainage noted in association with sloughing necrotic tissue * General Surgery following * s/p debridement (down to bone) on 06/28 * on antibiotics * local wound care (wound care following) * continue supportive therapy (4) Bacteremia: Code(s): R78.81 - Bacteremia Status: Acute Assessment and Plan: * blood cultures from 06/26 - Clostridium perfringens & Eggerthella(Eubacterium) lenta * Infectious Disease following * on antibiotics * continue current therapy (5) Fluid overload: Qualifiers: Hypervolemia type: other Qualified Code(s): E87.79 - Other fluid overload Code(s): E87.70 - Fluid overload, unspecified Status: Acute Assessment and Plan: * as noted by imaging on presentation * likely etiology of shortness of breath on admission * fluid removal as tolerated by hemodynamics * extra session of HD on 06/26 (in ICU) * continue fluid removal as tolerated by hemodynamics * suspect outpatient dry weight needs adjustment * follow respiratory status (6) Pneumonia: Qualifiers: Laterality: left Lung location: unspecified part of lung Pneumonia type: due to unspecified organism Qualified Code(s): J18.9 - Pneumonia, unspecified organism Code(s): J18.9 - Pneumonia, unspecified organism Status: Acute Assessment and Plan: * as suggested by admission imaging * follow culture data * on antibiotics (7) Anemia: Code(s): D64.9 - Anemia, unspecified Status: Chronic Assessment and Plan: * due to ESRD and possibly worsened by acute illness * Epogen with HD * follow trend of H/H (8) Diabetes mellitus with multiple complications: Code(s): E11.8 - Type 2 diabetes mellitus with unspecified complications Status: Chronic Assessment and Plan: * follow Accu-Cheks * glycemic control per hospitalist Will continue to follow. L Subjective Date/time seen: 07/01/25 12:50 Interval history: Follow-up for end stage renal disease on hemodialysis. Tolerated dialysis treatment yesterday without any issues or problems; no apparent distress noted; mentation seems stable; seen by Infectious Disease with recommendations noted; no other events overnight or earlier this morning. Exam 2 Narrative: General: WD/WN male in NAD Heart: normal S1 and S2; no rub Lungs: decreased at bases Abdomen: soft, nontender, nondistended, positive bowel sounds Extremities: no cyanosis or clubbing; trace edema; s/p bilateral BKAs Skin: no nodules Objective Data Vital Signs Vital Signs: Vital Signs Temp Pulse Resp BP Pulse Ox O2 Del Method 07/01/25 12:00 76 07/01/25 08:30 Room Air 07/01/25 08:00 67 07/01/25 06:00 97.2 F L 65 18 110/44 L 97 07/01/25 04:00 65 07/01/25 00:00 64 06/30/25 22:00 97.4 F L 72 18 118/47 L 97 06/30/25 20:00 Room Air 06/30/25 20:00 69 Intake/Output Intake/Output: Intake & Output 06/28/25 06/29/25 06/30/25 07/01/25 23:59 23:59 23:59 23:59 Intake Total 650 910 470 480 Output Total 1989 1700 Balance -1340 910 -1230 480 Meds/Results Medications: Active Medications Generic Name Dose Route Start Last Admin Trade Name Freq PRN Reason Stop Dose Admin Acetaminophen 650 mg 06/29/25 11:38 Acetaminophen 325 Mg Tablet PO Q6H PRN Mild Pain (1-3) or Fever Atorvastatin Calcium 40 mg 06/27/25 21:00 06/30/25 21:13 Atorvastatin 40 Mg Tablet PO 40 mg HS SALVADOR Administration Dextrose 12.5 gm 06/27/25 09:51 Dextrose 50% 25 Gm/50 Ml Syringe IV PUSH PRN PRN Hypoglycemia Protocol Ferrous Sulfate 325 mg 06/28/25 09:00 07/01/25 08:28 Ferrous Sulfate 325 Mg Tablet BY MOUTH 325 mg DAILY SALVADOR Administration Folic Acid 1 mg 06/28/25 09:00 07/01/25 08:28 Folic Acid 1 Mg Tablet PO 1 mg DAILY SALVADOR Administration Gabapentin 200 mg 06/27/25 21:00 06/30/25 21:13 Gabapentin 100 Mg Capsule PO 200 mg HS SALVADOR Administration Glucagon 1 mg 06/27/25 09:51 Glucagon For Inj 1 Mg Vial IM PRN PRN Hypoglycemia Protocol Glucose 15 gm 06/27/25 09:51 Glucose Oral Gel 15 Gm Of Glucse In 37.5 Gm Tube PO PRN PRN Hypoglycemia Protocol Heparin Sodium (Porcine) 5,000 units 06/26/25 21:00 07/01/25 08:29 Heparin Sodium 5,000 Units/Ml Vial SUB-Q 5,000 units Q12HR SALVADOR Administration Dextrose 1,000 mls @ 100 mls/hr 06/27/25 09:51 Dextrose 5% 1,000 Ml IVPB PRN PRN Hypoglycemia Protocol Albumin Human 50 mls @ 999 mls/hr 06/27/25 23:00 Albutein IVPB 07/27/25 22:59 Q10M PRN HYPOTENSION Cefepime HCl 2 gm/ Sodium 50 mls @ 100 mls/hr 06/30/25 18:00 06/30/25 18:00 Chloride IVPB Infused MOWEFR SALVADOR Infusion Ibuprofen 400 mg 06/29/25 11:38 Ibuprofen 400 Mg Tablet PO Q6H PRN Pain Rated 4-6 Insulin Aspart 2 - 5 units 06/27/25 11:30 07/01/25 16:38 Insulin Aspart (*Bkc) 100 Units/Ml SUB-Q Not Given ACHS SALVADOR Protocol Lidocaine/Prilocaine 1 each 06/28/25 06:10 Lidocaine/Prilocaine Cream 2.5-2.5% Tube TOPICAL WITH DIALYSIS PRN for dialysis Protocol Metronidazole 500 mg 06/30/25 14:00 07/01/25 14:46 Metronidazole 500 Mg Tablet PO 500 mg Q8HR SALVADOR Administration Midodrine 10 mg 06/27/25 13:00 07/01/25 16:27 Midodrine Hcl 10 Mg Tablet PO 10 mg TID SALVADOR Administration Mirtazapine 15 mg 06/27/25 21:00 06/30/25 21:13 Mirtazapine 15 Mg Tablet PO 15 mg HS SALVADOR Administration Mirtazapine 7.5 mg 06/27/25 21:00 06/30/25 21:13 Mirtazapine 7.5 Mg Tablet PO 7.5 mg HS SALVADOR Administration Pantoprazole Sodium 40 mg 06/26/25 21:00 07/01/25 08:30 Pantoprazole Sodium Iv 40 Mg Vial IV PUSH 40 mg Q12HR SALVADOR Administration Senna/Docusate Sodium 1 tab 06/27/25 09:01 Senna/Docusate Sodium Tablet PO BID PRN Constipation Sertraline HCl 50 mg 06/28/25 09:00 07/01/25 08:29 Sertraline Hcl 50 Mg Tablet PO 50 mg QAM SALVADOR Administration Sevelamer Carbonate 800 mg 06/27/25 17:00 07/01/25 16:27 Sevelamer Carbonate 800 Mg Tablet PO 800 mg DAILY@1700 SALVADOR Administration Sodium Chloride 20 ml 06/26/25 11:46 Central Line Flush IV PUSH PRN PRN after blood draws Sodium Hypochlorite 1 applic 06/27/25 21:00 07/01/25 08:31 Sod Hypochlorite 1/4 Strength 473 Ml TOPICAL 1 applic Q12HR SALVADOR Administration Zinc Sulfate 220 mg 06/28/25 09:00 07/01/25 08:29 Zinc Sulfate 220 Mg Capsule PO 220 mg QAM SALVADOR Administration Radiology Results: ITS Impressions Abdomen/Pelvis CT 06/26/25 07:59 IMPRESSION: 1. Decubitus wounds. 2. No evidence of osteomyelitis. 3. No evidence of associated abscess. 4. No acute abnormality within abdomen or pelvis. Chest X-Ray 06/28/25 08:20 Impression: CHF. Superimposed left lower lobe pneumonia suspected. The findings are progressed Labs Labs: Laboratory Tests 07/01/25 03:58 07/01/25 03:58 Calcium 8.6 Phosphorus 2.2 L Magnesium 2.2 Albumin 3.2 L Microbiology 06/29/25 17:02 Blood Blood Culture - Preliminary 06/29/25 16:49 Blood Blood Culture - Preliminary 06/26/25 06:22 Blood Blood Culture - Preliminary Priya(Eubacterium) harper
--- NOTE | 2025-07-01 14:19 | P.PNINF_ITS ---
Progress Note: A&P Assessment and Plan (1) Decubitus ulcer: Qualifiers: Pressure injury location: sacral region Pressure injury stage: stage 4 Qualified Code(s): L89.154 - Pressure ulcer of sacral region, stage 4 Code(s): L89.90 - Pressure ulcer of unspecified site, unspecified stage Status: Acute (2) ESRD (end stage renal disease) on dialysis: Code(s): N18.6 - End stage renal disease; Z99.2 - Dependence on renal dialysis Status: Acute Assessment and Plan: ASSESSMENT: 1. sacral decubitis s/p I&D--wound down to bone; imaging neg for osteomyelitis 2. clostridium perfringers and Eggerthelia bacteremia--likely 2nd to #1 3. ESRD on HD via RUE AVF 4. DM 5. afib 6. CAD s/p CABG 7. heart failure 8. penicillin allergy-->unknown reaction 9. s/p bilateral BKAs RECOMMENDATIONS -f/u on repeat blood cxs to ensure clearance--so far 06/29 cxs NGTD -IV cefepimw with HD and po flagyl--iwould treat for 4 weeks -ESR=74 and CRP=4.5 (nl is <1.0) and monitor q week -need to boost nutrition -off loading d/w pharmacy staff Pt was seen via video telehealth consult with the assistance of staff. Chart, data, and patient interview independently reviewed by me. Pt was located at [facility] while I was in my [place] office. Pt gave verbal consent. Subjective Date/time seen: 07/01/25 14:19 Interval history: no fever no leukocytosis fels more alert back pain ok Exam Narrative: NAD, on room air, non-toxic RUE AVF Objective Data Vital Signs Vital Signs: Vital Signs - 24 hr 06/30/25 16:00 06/30/25 20:00 06/30/25 20:00 Temperature Pulse Rate 65 69 Respiratory Rate Blood Pressure Pulse Oximetry Oxygen Delivery Room Air 06/30/25 22:00 07/01/25 00:00 07/01/25 04:00 Temperature 97.4 F L Pulse Rate 72 64 65 Respiratory Rate 18 Blood Pressure 118/47 L Pulse Oximetry 97 Oxygen Delivery 07/01/25 06:00 07/01/25 08:00 07/01/25 08:30 Temperature 97.2 F L Pulse Rate 65 67 Respiratory Rate 18 Blood Pressure 110/44 L Pulse Oximetry 97 Oxygen Delivery Room Air Intake/Output Intake/Output: Intake & Output 06/28/25 06/29/25 06/30/25 07/01/25 23:59 23:59 23:59 23:59 Intake Total 650 910 470 480 Output Total 1989 1700 Balance -1340 910 -1230 480 Meds/Results Medications: Active Medications Generic Name Dose Route Start Last Admin Trade Name Freq PRN Reason Stop Dose Admin Acetaminophen 650 mg 06/29/25 11:38 Acetaminophen 325 Mg Tablet PO Q6H PRN Mild Pain (1-3) or Fever Atorvastatin Calcium 40 mg 06/27/25 21:00 06/30/25 21:13 Atorvastatin 40 Mg Tablet PO 40 mg HS SAL[facility]ADOR Administration Dextrose 12.5 gm 06/27/25 09:51 Dextrose 50% 25 Gm/50 Ml Syringe IV PUSH PRN PRN Hypoglycemia Protocol Ferrous Sulfate 325 mg 06/28/25 09:00 07/01/25 08:28 Ferrous Sulfate 325 Mg Tablet BY MOUTH 325 mg DAILY SAL[facility]ADOR Administration Folic Acid 1 mg 06/28/25 09:00 07/01/25 08:28 Folic Acid 1 Mg Tablet PO 1 mg DAILY SAL[facility]ADOR Administration Gabapentin 200 mg 06/27/25 21:00 06/30/25 21:13 Gabapentin 100 Mg Capsule PO 200 mg HS SAL[facility]ADOR Administration Glucagon 1 mg 06/27/25 09:51 Glucagon For Inj 1 Mg Vial IM PRN PRN Hypoglycemia Protocol Glucose 15 gm 06/27/25 09:51 Glucose Oral Gel 15 Gm Of Glucse In 37.5 Gm Tube PO PRN PRN Hypoglycemia Protocol Heparin Sodium (Porcine) 5,000 units 06/26/25 21:00 07/01/25 08:29 Heparin Sodium 5,000 Units/Ml Vial SUB-Q 5,000 units Q12HR [facility]AD[facility] Administration Dextrose 1,000 mls @ 100 mls/hr 06/27/25 09:51 Dextrose 5% 1,000 Ml IVPB PRN PRN Hypoglycemia Protocol Albumin Human 50 mls @ 999 mls/hr 06/27/25 23:00 Albutein IVPB 07/27/25 22:59 Q10M PRN HYPOTENSION Cefepime HCl 2 gm/ Sodium 50 mls @ 100 mls/hr 06/30/25 18:00 06/30/25 18:00 Chloride IVPB Infused MOWEFR SALVADOR Infusion Ibuprofen 400 mg 06/29/25 11:38 Ibuprofen 400 Mg Tablet PO Q6H PRN Pain Rated 4-6 Insulin Aspart 2 - 5 units 06/27/25 11:30 07/01/25 12:01 Insulin Aspart (*Bkc) 100 Units/Ml SUB-Q Not Given ACHS SAL[facility]ADOR Protocol Lidocaine/Prilocaine 1 each 06/28/25 06:10 Lidocaine/Prilocaine Cream 2.5-2.5% Tube TOPICAL WITH DIALYSIS PRN for dialysis Protocol Metronidazole 500 mg 06/30/25 14:00 07/01/25 05:32 Metronidazole 500 Mg Tablet PO 500 mg Q8HR SALVADOR Administration Midodrine 10 mg 06/27/25 13:00 07/01/25 08:29 Midodrine Hcl 10 Mg Tablet PO 10 mg TID SALVADOR Administration Mirtazapine 15 mg 06/27/25 21:00 06/30/25 21:13 Mirtazapine 15 Mg Tablet PO 15 mg HS SALVADOR Administration Mirtazapine 7.5 mg 06/27/25 21:00 06/30/25 21:13 Mirtazapine 7.5 Mg Tablet PO 7.5 mg HS SALVADOR Administration Pantoprazole Sodium 40 mg 06/26/25 21:00 07/01/25 08:30 Pantoprazole Sodium Iv 40 Mg Vial IV PUSH 40 mg Q12HR SALVADOR Administration Senna/Docusate Sodium 1 tab 06/27/25 09:01 Senna/Docusate Sodium Tablet PO BID PRN Constipation Sertraline HCl 50 mg 06/28/25 09:00 07/01/25 08:29 Sertraline Hcl 50 Mg Tablet PO 50 mg QAM SALVADOR Administration Sevelamer Carbonate 800 mg 06/27/25 17:00 06/30/25 17:20 Sevelamer Carbonate 800 Mg Tablet PO 800 mg DAILY@1700 SALVADOR Administration Sodium Chloride 20 ml 06/26/25 11:46 Central Line Flush IV PUSH PRN PRN after blood draws Sodium Hypochlorite 1 applic 06/27/25 21:00 07/01/25 08:31 Sod Hypochlorite 1/4 Strength 473 Ml TOPICAL 1 applic Q12HR SALVADOR Administration Zinc Sulfate 220 mg 06/28/25 09:00 07/01/25 08:29 Zinc Sulfate 220 Mg Capsule PO 220 mg QAM SALVADOR Administration Radiology Results: ITS Impressions Abdomen/Pelvis CT 06/26/25 07:59 IMPRESSION: 1. Decubitus wounds. 2. No evidence of osteomyelitis. 3. No evidence of associated abscess. 4. No acute abnormality within abdomen or pelvis. Chest X-Ray 06/28/25 08:20 Impression: CHF. Superimposed left lower lobe pneumonia suspected. The findings are progressed Labs Labs: Laboratory Results - last 24 hr 06/30/25 06/30/25 06/30/25 17:25 19:30 21:22 WBC RBC Hgb Hct MCV MCH MCHC RDW Plt Count MPV % Immature Plt Fraction ESR 74 H Sodium Potassium Chloride Carbon Dioxide Anion Gap BUN Creatinine Estim Creat Clear Calc Estimated GFR Glucose POC Capillary Glucose 108 H 155 H Calcium Phosphorus Magnesium C-Reactive Protein 4.5 H Albumin 07/01/25 07/01/25 07/01/25 03:58 07:42 11:31 WBC 5.6 RBC 3.48 L Hgb 10.6 L Hct 35.3 L MCV 101.4 H MCH 30.5 MCHC 30.0 L RDW 18.6 H Plt Count 91 L MPV 13.4 H % Immature Plt Fraction 6.5 ESR Sodium 140 Potassium 4.0 Chloride 104 Carbon Dioxide 27 Anion Gap 9 BUN 15 D Creatinine 2.51 H Estim Creat Clear Calc Not Reportable Estimated GFR 26 L Glucose 100 POC Capillary Glucose 125 H 166 H Calcium 8.6 Phosphorus 2.2 L Magnesium 2.2 C-Reactive Protein Albumin 3.2 L
[2025-07-01] MEDS: SEVELAMER CARBONATE 800 MG TABLET PO (16:27)
[2025-07-01] MEDS: MIRTAZAPINE 15 MG TABLET PO (20:43)
[2025-07-01] MEDS: GABAPENTIN 100 MG CAPSULE 200 MG PO (20:43)
[2025-07-01] MEDS: MIRTAZAPINE 7.5 MG TABLET PO (20:43)
[2025-07-01] MEDS: ATORVASTATIN 40 MG TABLET PO (20:43)
[2025-07-02] VITALS (27 sets, daily range): BP systolic 85–130; BP diastolic 31–56; PULSE 54–108; RESP 16–18; TEMP 36.1–37; O2SAT 92–100
[2025-07-02 05:18] LABS: Hematocrit 36.0 % (42.0-52.0); Hemoglobin 10.9 g/dL (14.0-18.0); Mean Corpuscular HGB Conc 30.3 g/dl (32-36); Mean Corpuscular Hemoglobin 30.6 pg (26-34); Mean Corpuscular Volume 101.1 fl (80-100); Platelet Count Result 110 k/mm3 (150-375); Red Blood Count 3.56 M/mm3 (4.6-6.20); White Blood Count 7.2 K/mm3 (4.5-10.0)
[2025-07-02 05:33] LABS: Albumin Level 3.3 g/dL (3.5-5.1); Anion Gap 10 mmol/L (4-12); Blood Urea Nitrogen 26 mg/dL (9-20); Calcium 8.7 mg/dL (8.4-10.2); Carbon Dioxide 29 mmol/L (22-30); Chloride 104 mmol/L (98-107); Estimated Glomerular Filt Rate 15; Glucose 196 mg/dL (65-110); Magnesium 2.3 mg/dL (1.6-2.3); Potassium 4.0 mmol/L (3.4-5.0); Sodium 143 mmol/L (137-145)
[2025-07-02] MEDS: MIDODRINE HCL 10 MG TABLET PO ×3 (08:10→17:48)
--- NOTE | 2025-07-02 09:20 | P.PNNP_ITS ---
Progress Note: A&P Assessment and Plan (1) ESRD (end stage renal disease): Code(s): N18.6 - End stage renal disease Status: Chronic Assessment and Plan: * HD today * continue M/W/F schedule while hospitalized * follow electrolytes, volume status, and clearance (2) Hypotension: Code(s): I95.9 - Hypotension, unspecified Status: Acute Assessment and Plan: * some degree of chronicity with regard to this issue * on midodrine as an outpatient * suspect acute worsening due to infection (sacral decubitus ulcer + pneumonia) * associated with fever, leukocytosis, altered mental status and shortness of breath on admission * initially on vasopressor therapy but weaned off * resumed on midodrine therapy (3) Decubitus ulcer: Code(s): L89.90 - Pressure ulcer of unspecified site, unspecified stage Status: Acute Assessment and Plan: * significant amount of drainage noted in association with sloughing necrotic tissue * General Surgery following * s/p debridement (down to bone) on 06/28 * on antibiotics * local wound care (wound care following) * continue supportive therapy (4) Bacteremia: Code(s): R78.81 - Bacteremia Status: Acute Assessment and Plan: * blood cultures from 06/26 - Clostridium perfringens & Eggerthella(Eubacterium) lenta * Infectious Disease following * on antibiotics * continue current therapy (5) Fluid overload: Qualifiers: Hypervolemia type: other Qualified Code(s): E87.79 - Other fluid overload Code(s): E87.70 - Fluid overload, unspecified Status: Acute Assessment and Plan: * improvement noted * as noted by imaging on presentation * likely etiology of shortness of breath on admission * fluid removal as tolerated by hemodynamics * extra session of HD on 06/26 (in ICU) * continue fluid removal as tolerated by hemodynamics * suspect outpatient dry weight needs adjustment * follow respiratory status (6) Pneumonia: Qualifiers: Laterality: left Lung location: unspecified part of lung Pneumonia type: due to unspecified organism Qualified Code(s): J18.9 - Pneumonia, unspecified organism Code(s): J18.9 - Pneumonia, unspecified organism Status: Acute Assessment and Plan: * as suggested by admission imaging * follow culture data * on antibiotics (7) Anemia: Code(s): D64.9 - Anemia, unspecified Status: Chronic Assessment and Plan: * due to ESRD and possibly worsened by acute illness * Epogen with HD * follow trend of H/H (8) Diabetes mellitus with multiple complications: Code(s): E11.8 - Type 2 diabetes mellitus with unspecified complications Status: Chronic Assessment and Plan: * follow Accu-Cheks * glycemic control per hospitalist Will continue to follow. L Subjective Date/time seen: 07/02/25 09:20 Interval history: Follow-up for end stage renal disease on hemodialysis. Tolerating dialysis treatment at the time of my visit (seen on HD at 9:10am); relative hypotension noted so fluid removal with treatment today will be challenging; no apparent distress voiced -- no shortness of breath or chest discomfort to report; no events overnight. Exam 2 Narrative: General: WD/WN male in NAD Heart: normal S1 and S2; no rub Lungs: decreased at bases Abdomen: soft, nontender, nondistended, positive bowel sounds Extremities: no cyanosis or clubbing; trace edema; s/p bilateral BKAs Skin: warm and dry Objective Data Vital Signs Vital Signs: Vital Signs Temp Pulse Resp BP Pulse Ox O2 Del Method FiO2 07/02/25 09:15 65 93/46 L 07/02/25 09:00 64 123/55 L 07/02/25 08:54 65 110/52 L 07/02/25 08:40 97.9 F 63 16 111/48 L 96 07/02/25 08:00 54 L 07/02/25 06:00 97.5 F L 108 H 18 101/31 L 96 07/02/25 04:00 60 07/02/25 00:00 55 L 07/01/25 22:00 98.3 F 61 18 117/53 L 99 07/01/25 21:20 60 99 Room Air 21 07/01/25 20:00 58 L 07/01/25 20:00 Room Air 07/01/25 16:00 75 07/01/25 14:00 97.6 F 69 18 122/53 L 98 Intake/Output Intake/Output: Intake & Output 06/29/25 06/30/25 07/01/25 07/02/25 23:59 23:59 23:59 23:59 Intake Total 910 470 880 Output Total 1700 Balance 910 -1230 880 Meds/Results Medications: Active Medications Generic Name Dose Route Start Last Admin Trade Name Freq PRN Reason Stop Dose Admin Acetaminophen 650 mg 06/29/25 11:38 Acetaminophen 325 Mg Tablet PO Q6H PRN Mild Pain (1-3) or Fever Atorvastatin Calcium 40 mg 06/27/25 21:00 07/01/25 20:43 Atorvastatin 40 Mg Tablet PO 40 mg HS SALVADOR Administration Dextrose 12.5 gm 06/27/25 09:51 Dextrose 50% 25 Gm/50 Ml Syringe IV PUSH PRN PRN Hypoglycemia Protocol Ferrous Sulfate 325 mg 06/28/25 09:00 07/01/25 08:28 Ferrous Sulfate 325 Mg Tablet BY MOUTH 325 mg DAILY SAL[facility]ADOR Administration Folic Acid 1 mg 06/28/25 09:00 07/01/25 08:28 Folic Acid 1 Mg Tablet PO 1 mg DAILY SAL[facility]ADOR Administration Gabapentin 200 mg 06/27/25 21:00 07/01/25 20:43 Gabapentin 100 Mg Capsule PO 200 mg HS SALVADOR Administration Glucagon 1 mg 06/27/25 09:51 Glucagon For Inj 1 Mg Vial IM PRN PRN Hypoglycemia Protocol Glucose 15 gm 06/27/25 09:51 Glucose Oral Gel 15 Gm Of Glucse In 37.5 Gm Tube PO PRN PRN Hypoglycemia Protocol Heparin Sodium (Porcine) 5,000 units 06/26/25 21:00 07/01/25 20:44 Heparin Sodium 5,000 Units/Ml Vial SUB-Q 5,000 units Q12HR [facility]ADOR Administration Dextrose 1,000 mls @ 100 mls/hr 06/27/25 09:51 Dextrose 5% 1,000 Ml IVPB PRN PRN Hypoglycemia Protocol Albumin Human 50 mls @ 999 mls/hr 06/27/25 23:00 Albutein IVPB 07/27/25 22:59 Q10M PRN HYPOTENSION Cefepime HCl 2 gm/ Sodium 50 mls @ 100 mls/hr 06/30/25 18:00 06/30/25 18:00 Chloride IVPB Infused MOWEFR SALVADOR Infusion Albumin Human 50 mls @ 999 mls/hr 07/02/25 07:14 07/02/25 10:06 Albutein IVPB 07/03/25 07:13 999 mls/hr Q10M PRN Administration HYPOTENSION Ibuprofen 400 mg 06/29/25 11:38 Ibuprofen 400 Mg Tablet PO Q6H PRN Pain Rated 4-6 Insulin Aspart 2 - 5 units 07/02/25 08:00 Insulin Aspart (*Bkc) 100 Units/Ml SUB-Q WMHS SALVADOR Protocol Lidocaine/Prilocaine 1 each 06/28/25 06:10 Lidocaine/Prilocaine Cream 2.5-2.5% Tube TOPICAL WITH DIALYSIS PRN for dialysis Protocol Metronidazole 500 mg 06/30/25 14:00 07/02/25 05:40 Metronidazole 500 Mg Tablet PO 500 mg Q8HR [facility]AD[facility] Administration Midodrine 10 mg 06/27/25 13:00 07/02/25 08:10 Midodrine Hcl 10 Mg Tablet PO 10 mg TID SAL[facility]ADOR Administration Mirtazapine 15 mg 06/27/25 21:00 07/01/25 20:43 Mirtazapine 15 Mg Tablet PO 15 mg HS SALVADOR Administration Mirtazapine 7.5 mg 06/27/25 21:00 07/01/25 20:43 Mirtazapine 7.5 Mg Tablet PO 7.5 mg HS SALVADOR Administration Pantoprazole Sodium 40 mg 06/26/25 21:00 07/02/25 12:07 Pantoprazole Sodium Iv 40 Mg Vial IV PUSH Not Given Q12HR [facility]VADOR Senna/Docusate Sodium 1 tab 06/27/25 09:01 Senna/Docusate Sodium Tablet PO BID PRN Constipation Sertraline HCl 50 mg 06/28/25 09:00 07/01/25 08:29 Sertraline Hcl 50 Mg Tablet PO 50 mg QAM SAL[facility]ADOR Administration Sevelamer Carbonate 800 mg 06/27/25 17:00 07/01/25 16:27 Sevelamer Carbonate 800 Mg Tablet PO 800 mg DAILY@1700 [facility]ADOR Administration Sodium Chloride 20 ml 06/26/25 11:46 Central Line Flush IV PUSH PRN PRN after blood draws Sodium Hypochlorite 1 applic 06/27/25 21:00 07/01/25 20:44 Sod Hypochlorite 1/4 Strength 473 Ml TOPICAL 1 applic Q12HR [facility]VADOR Administration Zinc Sulfate 220 mg 06/28/25 09:00 07/01/25 08:29 Zinc Sulfate 220 Mg Capsule PO 220 mg QAM SALVADOR Administration Radiology Results: ITS Impressions Abdomen/Pelvis CT 06/26/25 07:59 IMPRESSION: 1. Decubitus wounds. 2. No evidence of osteomyelitis. 3. No evidence of associated abscess. 4. No acute abnormality within abdomen or pelvis. Chest X-Ray 06/28/25 08:20 Impression: CHF. Superimposed left lower lobe pneumonia suspected. The findings are progressed Labs Labs: Laboratory Tests 07/02/25 04:38 07/02/25 04:38 Calcium 8.7 Phosphorus 2.1 L Magnesium 2.3 Albumin 3.3 L Microbiology 06/26/25 06:22 Blood Blood Culture - Final Eggerthella(Eubacterium) lenta 06/26/25 06:33 Blood Blood Culture - Final Clostridium perfringens 06/29/25 17:02 Blood Blood Culture - Preliminary 06/29/25 16:49 Blood Blood Culture - Preliminary
[2025-07-02] MEDS: ALBUMIN HUMAN 25% 12.5 GM/50ML 50 ML IVPB (10:06)
[2025-07-02] MEDS: EPOETIN ALFA-EPBX 4,000 UNITS/ML VIAL 4000 UNITS IV PUSH (11:04)
--- NOTE | 2025-07-02 11:34 | PCNFU ---
Nutrition Follow-Up Complete: Severe protein calorie malnutrition related to loss of appetite, increased protein energy needs from wounds, as evidenced by intakes <75% needs >1 month; weight loss 18%/2 months; severe muscle wasting and fat loss. Intakes >50% meals and supplements - Slow progress with goal. Continue with same goal Goal: Pt current nutrition is Renal diet, Malik BID for wounds (90 kcal, 2.5 g protein) and Nepro BID (420 kcal, 19 g protein). Nutrition recommendation: No new recommendations. Continue to encourage intakes Last recorded weight is 71.7 kg. Bowel Motility: +1 BM 07/02 Labs Reviewed: Hgb 10.9, Hct 36, Alb 3.3, bun 26, Cre 3.56, Glu 196 Meds Noted: Protonix, folic acid, remeron, novolog, senna Skin: Stage 4 sacrum post debridement Additional Notes: Pt was in dialysis this morning and did not get to eat breakfast. Intakes 40, 75, 0 yesterday. Still with poor appetite in setting of increased needs from wounds. Will return to [place] when discharged. Monitoring skin, weights, intakes, labs, output, plan of care Follow up in 3 days
--- NOTE | 2025-07-02 12:22 | PM.IMPN ---
Progress Note: A&P Assessment and Plan (1) Shock: Code(s): R57.9 - Shock, unspecified Status: Acute Assessment and Plan: Patient met SIRS criteria due to RR >20, WBC >12, +fever. Presented to [facility] on 06/26 with altered mental status, hypotension, shortness of breath, and fever. Patient started on norepinephrine gtt for acute hypotension to maintain MAP >65. Shock secondary to sepsis versus cardiogenic. Given patient has history of biventricular dysfunction cardiogenic cannot be excluded, however clinical picture (fever, shortness of breath) and imaging findings concerning for pneumonia as well as the chronic decubitus ulcer more so fit the picture of sepsis. - Lactic 2.0, check procalcitonin. - IV fluids held as the patient's BNP was significantly elevated and imaging showed pulmonary edema - CXR on 06/26 showed bilateral infiltrates/pulmonary edema with possible perihilar and airspace opacity/pneumonia - started on broad-spectrum antibiotics including cefepime, vancomycin, doxycycline, and Flagyl on 06/26 to cover pneumonia and possible pathogens affecting the patient's decubitus ulcer - admission to the ICU with mortar worker consulted - continue norepinephrine to maintain map greater than 65 07/02/2025 Resolved. Patient is on dialysis. Continue monitor. (2) Pulmonary edema: Qualifiers: Chronicity: acute Qualified Code(s): J81.0 - Acute pulmonary edema Code(s): J81.1 - Chronic pulmonary edema Status: Acute Assessment and Plan: Pulmonary edema seen on CXR. Patient has history of combined systolic/diastolic CHF. Fluid balance managed via dialysis that he receives Mondays, Wednesdays, Fridays. Has not missed any treatments and has been able to receive his full treatments. - nephrology consulted for inpatient dialysis. - mortar worker spoke with Nishi ROBERTSON, plan for dialysis today (06/26) - monitor oxygen saturations 07/02/2025 Patient is on dialysis. Will continue monitor. (3) Pneumonia: Qualifiers: Laterality: left Lung location: unspecified part of lung Pneumonia type: due to unspecified organism Qualified Code(s): J18.9 - Pneumonia, unspecified organism Code(s): J18.9 - Pneumonia, unspecified organism Status: Acute Assessment and Plan: - antibiotics initiated as above, see shock - blood cultures pending - MRSA PCR negative - antipyretic p.r.n. (4) Decubitus ulcer: Code(s): L89.90 - Pressure ulcer of unspecified site, unspecified stage Status: Acute Assessment and Plan: Patient has longstanding chronic decubitus ulcer. CT of the abdomen/pelvis showed no current complicating features including osteomyelitis or abscess. - general surgery consulted (5) ESRD (end stage renal disease) on dialysis: Code(s): N18.6 - End stage renal disease; Z99.2 - Dependence on renal dialysis Status: Acute Assessment and Plan: Patient has history of ESRD on hemodialysis. Receives treatment on Mondays, Wednesdays, Fridays. Per chart review, the patient was able to receive his full dialysis treatment yesterday (Saturday, 06/25). However the patient currently appears volume overloaded based off clinical exam and CXR findings. Driver Examiner spoke with cryptological technician, plan for dialysis today. Nephrology aware patient is currently requiring norepinephrine and currently has a mild O2 requirement. - monitor electrolytes - monitor blood pressure (6) Type 2 diabetes mellitus: Qualifiers: Diabetes mellitus rn long term care insulin use: without residential use Diabetes mellitus complication status: with kidney complications Diabetes mellitus complication detail: with chronic kidney disease Chronic kidney disease stage: on chronic dialysis Qualified Code(s): E11.22 - Type 2 diabetes mellitus with diabetic chronic kidney disease; N18.6 - End stage renal disease; Z99.2 - Dependence on renal dialysis Code(s): E11.9 - Type 2 diabetes mellitus without complications Status: Chronic Assessment and Plan: History of type 2 diabetes complicated by ESRD, bilateral BKA, and diabetic neuropathy. - hypoglycemia protocol - POC blood glucose Q6H - hold home medications including Sevelamer and Tradjenta - correct regimen ordered - low dose Q6H - A1C 5.6% on 10/20/2024 (7) Anemia of chronic disease: Code(s): D63.8 - Anemia in other chronic diseases classified elsewhere Status: Chronic Assessment and Plan: Patient has history of anemia of chronic disease (ESRD). - Hgb 9.4 upon admission, at baseline - transfuse if <7 - monitor Plan patient with septic shock resulting in AMS presented to ER with hypotension most likely 2/2 sacral wound, patient is being treated with Cefepime, doxycycline, and Flagyl, patient clinical symptoms are improving and he is off the pressure and blood pressure is trending up, and his white counts are trending up, patient was seen by general surgery service and recommended, will require debridement of his sacral wound, patient and family has agreed. patient will be transferred out of ICU to IMU, will monitor, once clinically stable, will have PT/OT evaluate the patient and patient will benefit going to rehab. will monitor, patient family is present and gave updates. on 06/27 patient was moved out of ICU to medical floor, seen in the dialysis center, having HD stats feels better, he is scheduled to have debridement later today with general surgery, he remains clinically stable, will monitor. on 06/28 patient has his wound debridement and tolerated, patient still has episodes of confusion, agitation and restlessness, patient one bottle of blood culture is growing Clostridium perfringens, patient is being treated with Cefepime, doxycycline, Flagy, and vancomycin, white counts are tending down, and has no fever, most likely due to his pneumonia, will follow up on blood culture, will discuss with clinical pharmacist and further recommendation to follow. patient blood culture 1 bottle is growing Clostridium perfringens and another bottle is growing Eggerthella (Eubacterium) lenta sensitivity is pending, patient currently being treated with Cefepime, and Flagyl, seen by ID recommended to give Cefepime with HD, and switch Flagyle to PO, Patient was seen by general surgery s/p debridement POD#3, today patient is more alert and able to communicate, will monitor. GI Prophylaxis: Pantoprazole IV DVT Prophylaxis: Heparin SQ IV fluids: none, concern for volume overload and plan for diuresis via HD Lines/Tubes: Peripheral IV Code Status: DNR, paperwork in patient's chart Subjective Date/time seen: 07/02/25 12:22 Interval history: Patient was seen during the morning rounds today. Mild shortness of breath. No chest pain. No abdominal pain, nausea vomiting. Review of Systems Review of Systems: All systems reviewed & are unremarkable except as noted in HPI and below ROS unobtainable: Yes unobtainable due to mental status Exam Narrative: Patient is comfortable, NAD HEENT: eyes are clear and none icteric LUNGS:CTA HEART: RR S1S2 ABD: BS+, Soft and nontender Lower extremities: no edema SKIN: nonjaundiced Neuro: grossly intact. Const: Other: , male, appears older than stated age, ill-appearing, mild respiratory distress noted HENMT: Face/Nose/Sinus: Normal nares present Mouth: Yes dry mucous membranes Eyes: General: appearance normal, both eyes and all related structures Sclera: sclerae normal Pupils: Equal, round and reactive pupils present EOM: EOMs intact bilaterally Resp: Other: Mild tachypnea without accessory muscle use. Nasal cannula place, tolerating well. Coarse breath sounds bilaterally in the upper and lower lung de [place], left worse than right. No rales or wheezing appreciated. Decreased bibasilarly. Cardio: Rate: regular rate Rhythm: regular rhythm Other: S1-S2 present without murmur, rub, ectopy GI: Other: Abdomen soft, nondistended, nontender. Normoactive bowel sounds in all quadrants. Skin: General skin exam: normal color Other: Small areas of eschar to the left hand, dorsal aspect. No signs of infection. Some surrounding erythema. Neuro: Cranial nerves: Yes Equal, round and reactive pupils present Other: Patient is alert, will attempt to follow commands. A&O times 0. Opens eyes to name. Extrem: Other: Bilateral BKAs. No skin breakdown on exam. RUE dialysis fistula, +thrill and bruit. Psych: Other: Unable to assess at this time Objective Data Vital Signs Vital Signs: Vital Signs - 24 hr 07/01/25 14:00 07/01/25 16:00 07/01/25 20:00 Temperature 36.4 C Pulse Rate 69 75 Respiratory Rate 18 Blood Pressure 122/53 L Pulse Oximetry 98 Oxygen Delivery Room Air Fraction of Inspired Oxygen 07/01/25 20:00 07/01/25 21:20 07/01/25 22:00 Temperature 36.8 C Pulse Rate 58 L 60 61 Respiratory Rate 18 Blood Pressure 117/53 L Pulse Oximetry 99 99 Oxygen Delivery Room Air Fraction of Inspired Oxygen 21 07/02/25 00:00 07/02/25 04:00 07/02/25 06:00 Temperature 36.4 C L Pulse Rate 55 L 60 108 H Respiratory Rate 18 Blood Pressure 101/31 L Pulse Oximetry 96 Oxygen Delivery Fraction of Inspired Oxygen 07/02/25 08:00 07/02/25 08:40 07/02/25 08:54 Temperature 36.6 C Pulse Rate 54 L 63 65 Respiratory Rate 16 Blood Pressure 111/48 L 110/52 L Pulse Oximetry 96 Oxygen Delivery Fraction of Inspired Oxygen 07/02/25 09:00 07/02/25 09:15 07/02/25 09:30 Temperature Pulse Rate 64 65 65 Respiratory Rate Blood Pressure 123/55 L 93/46 L 93/43 L Pulse Oximetry Oxygen Delivery Fraction of Inspired Oxygen 07/02/25 09:45 07/02/25 10:00 07/02/25 10:15 Temperature Pulse Rate 70 65 64 Respiratory Rate Blood Pressure 85/48 L 88/36 L 88/40 L Pulse Oximetry Oxygen Delivery Fraction of Inspired Oxygen 07/02/25 10:30 07/02/25 10:45 07/02/25 11:00 Temperature Pulse Rate 62 64 64 Respiratory Rate Blood Pressure 87/43 L 100/41 L 90/38 L Pulse Oximetry Oxygen Delivery Fraction of Inspired Oxygen 07/02/25 11:15 Temperature Pulse Rate 65 Respiratory Rate Blood Pressure 91/43 L Pulse Oximetry Oxygen Delivery Fraction of Inspired Oxygen Intake/Output Intake/Output: Intake & Output 06/29/25 06/30/25 07/01/25 07/02/25 23:59 23:59 23:59 23:59 Intake Total 910 470 880 Output Total 1700 Balance 910 -1230 880 Meds/Results Medications: Active Medications Generic Name Dose Route Start Last Admin Trade Name Freq PRN Reason Stop Dose Admin Acetaminophen 650 mg 06/29/25 11:38 Acetaminophen 325 Mg Tablet PO Q6H PRN Mild Pain (1-3) or Fever Atorvastatin Calcium 40 mg 06/27/25 21:00 07/01/25 20:43 Atorvastatin 40 Mg Tablet PO 40 mg HS [facility]OR Administration Dextrose 12.5 gm 06/27/25 09:51 Dextrose 50% 25 Gm/50 Ml Syringe IV PUSH PRN PRN Hypoglycemia Protocol Ferrous Sulfate 325 mg 06/28/25 09:00 07/01/25 08:28 Ferrous Sulfate 325 Mg Tablet BY MOUTH 325 mg DAILY [facility] Administration Folic Acid 1 mg 06/28/25 09:00 07/01/25 08:28 Folic Acid 1 Mg Tablet PO 1 mg DAILY [facility] Administration Gabapentin 200 mg 06/27/25 21:00 07/01/25 20:43 Gabapentin 100 Mg Capsule PO 200 mg HS SAL[facility]ADOR Administration Glucagon 1 mg 06/27/25 09:51 Glucagon For Inj 1 Mg Vial IM PRN PRN Hypoglycemia Protocol Glucose 15 gm 06/27/25 09:51 Glucose Oral Gel 15 Gm Of Glucse In 37.5 Gm Tube PO PRN PRN Hypoglycemia Protocol Heparin Sodium (Porcine) 5,000 units 06/26/25 21:00 07/01/25 20:44 Heparin Sodium 5,000 Units/Ml Vial SUB-Q 5,000 units Q12HR [facility] Administration Dextrose 1,000 mls @ 100 mls/hr 06/27/25 09:51 Dextrose 5% 1,000 Ml IVPB PRN PRN Hypoglycemia Protocol Albumin Human 50 mls @ 999 mls/hr 06/27/25 23:00 Albutein IVPB 07/27/25 22:59 Q10M PRN HYPOTENSION Cefepime HCl 2 gm/ Sodium 50 mls @ 100 mls/hr 06/30/25 18:00 06/30/25 18:00 Chloride IVPB Infused MOWEFR SALVADOR Infusion Albumin Human 50 mls @ 999 mls/hr 07/02/25 07:14 07/02/25 10:06 Albutein IVPB 07/03/25 07:13 999 mls/hr Q10M PRN Administration HYPOTENSION Ibuprofen 400 mg 06/29/25 11:38 Ibuprofen 400 Mg Tablet PO Q6H PRN Pain Rated 4-6 Insulin Aspart 2 - 5 units 07/02/25 08:00 Insulin Aspart (*Bkc) 100 Units/Ml SUB-Q [facility] Protocol Lidocaine/Prilocaine 1 each 06/28/25 06:10 Lidocaine/Prilocaine Cream 2.5-2.5% Tube TOPICAL WITH DIALYSIS PRN for dialysis Protocol Metronidazole 500 mg 06/30/25 14:00 07/02/25 05:40 Metronidazole 500 Mg Tablet PO 500 mg Q8HR [facility] Administration Midodrine 10 mg 06/27/25 13:00 07/02/25 08:10 Midodrine Hcl 10 Mg Tablet PO 10 mg TID [facility] Administration Mirtazapine 15 mg 06/27/25 21:00 07/01/25 20:43 Mirtazapine 15 Mg Tablet PO 15 mg HS [facility] Administration Mirtazapine 7.5 mg 06/27/25 21:00 07/01/25 20:43 Mirtazapine 7.5 Mg Tablet PO 7.5 mg HS [facility] Administration Pantoprazole Sodium 40 mg 06/26/25 21:00 07/02/25 12:07 Pantoprazole Sodium Iv 40 Mg Vial IV PUSH Not Given Q12HR [facility] Senna/Docusate Sodium 1 tab 06/27/25 09:01 Senna/Docusate Sodium Tablet PO BID PRN Constipation Sertraline HCl 50 mg 06/28/25 09:00 07/01/25 08:29 Sertraline Hcl 50 Mg Tablet PO 50 mg QAM [facility] Administration Sevelamer Carbonate 800 mg 06/27/25 17:00 07/01/25 16:27 Sevelamer Carbonate 800 Mg Tablet PO 800 mg DAILY@1700 [facility] Administration Sodium Chloride 20 ml 06/26/25 11:46 Central Line Flush IV PUSH PRN PRN after blood draws Sodium Hypochlorite 1 applic 06/27/25 21:00 07/01/25 20:44 Sod Hypochlorite 1/4 Strength 473 Ml TOPICAL 1 applic Q12HR [facility] Administration Zinc Sulfate 220 mg 06/28/25 09:00 07/01/25 08:29 Zinc Sulfate 220 Mg Capsule PO 220 mg QAM [facility] Administration Radiology Results: ITS Impressions Abdomen/Pelvis CT 06/26/25 07:59 IMPRESSION: 1. Decubitus wounds. 2. No evidence of osteomyelitis. 3. No evidence of associated abscess. 4. No acute abnormality within abdomen or pelvis. Chest X-Ray 06/28/25 08:20 Impression: CHF. Superimposed left lower lobe pneumonia suspected. The findings are progressed Labs Labs: Laboratory Results - last 24 hr 07/01/25 07/01/25 07/02/25 16:23 19:58 04:38 WBC 7.2 RBC 3.56 L Hgb 10.9 L Hct 36.0 L MCV 101.1 H MCH 30.6 MCHC 30.3 L RDW 18.8 H Plt Count 110 L MPV 13.0 H Sodium 143 Potassium 4.0 Chloride 104 Carbon Dioxide 29 Anion Gap 10 BUN 26 H D Creatinine 3.96 H Estim Creat Clear Calc Not Reportable Estimated GFR 15 L Glucose 196 H POC Capillary Glucose 193 H 194 H Calcium 8.7 Phosphorus 2.1 L Magnesium 2.3 Albumin 3.3 L 07/02/25 08:14 WBC RBC Hgb Hct MCV MCH MCHC RDW Plt Count MPV Sodium Potassium Chloride Carbon Dioxide Anion Gap BUN Creatinine Estim Creat Clear Calc Estimated GFR Glucose POC Capillary Glucose 155 H Calcium Phosphorus Magnesium Albumin Quality VTE Prophylaxis VTE prophylaxis: pharmacologic ordered
[2025-07-02] MEDS: FOLIC ACID 1 MG TABLET PO (13:17)
[2025-07-02] MEDS: FERROUS SULFATE 325 MG TABLET BY MOUTH (13:17)
[2025-07-02] MEDS: SERTRALINE HCL 50 MG TABLET PO (13:17)
[2025-07-02] MEDS: ZINC SULFATE 220 MG CAPSULE PO (13:17)
--- NOTE | 2025-07-02 14:00 | WPDINFPN2 ---
Progress Note: A&P Assessment and Plan (1) Decubitus ulcer: Qualifiers: Pressure injury location: sacral region Pressure injury stage: stage 4 Qualified Code(s): L89.154 - Pressure ulcer of sacral region, stage 4 Code(s): L89.90 - Pressure ulcer of unspecified site, unspecified stage Status: Acute (2) ESRD (end stage renal disease) on dialysis: Code(s): N18.6 - End stage renal disease; Z99.2 - Dependence on renal dialysis Status: Acute Assessment and Plan: ASSESSMENT: 1. sacral decubitis s/p I&D--wound down to bone; imaging neg for osteomyelitis 2. clostridium perfringers and Eggerthelia bacteremia--likely 2nd to #1 3. ESRD on HD via RUE AVF 4. DM 5. afib 6. CAD s/p CABG 7. heart failure 8. penicillin allergy-->unknown reaction 9. s/p bilateral BKAs RECOMMENDATIONS - Await further follow-up of blood cultures although close to final. Planning cefepime and Flagyl for 4 week therapy. Anticipated end of therapy would be July 26, 2025 Winded discharge, cefepime can be given with dialysis, so no PICC line will be needed. d/w pharmacy staff Pt was seen via video telehealth consult with the assistance of staff. Chart, data, and patient interview independently reviewed by me. Pt was located at [facility] while I was in my [place] office. Pt gave verbal consent. Subjective Date/time seen: 07/02/25 14:00 Interval history: status post dialysis. He is apparently much more alert today. Had episode of nausea last night but nothing today. Moving bowels. The Exam Narrative: he is awake. No distress. Follows my instructions. Oriented to person and place. No issues with his AV fistula. No new rash. no accessory muscles for breathing. During telemedicine visit today, did not examine the sacral area as patient just transferred. Objective Data Vital Signs Vital Signs: Vital Signs - 24 hr 07/01/25 16:00 07/01/25 20:00 07/01/25 20:00 Temperature Pulse Rate 75 58 L Respiratory Rate Blood Pressure Pulse Oximetry Oxygen Delivery Room Air Fraction of Inspired Oxygen 07/01/25 21:20 07/01/25 22:00 07/02/25 00:00 Temperature 36.8 C Pulse Rate 60 61 55 L Respiratory Rate 18 Blood Pressure 117/53 L Pulse Oximetry 99 99 Oxygen Delivery Room Air Fraction of Inspired Oxygen 21 07/02/25 04:00 07/02/25 06:00 07/02/25 08:00 Temperature 36.4 C L Pulse Rate 60 108 H 54 L Respiratory Rate 18 Blood Pressure 101/31 L Pulse Oximetry 96 Oxygen Delivery Fraction of Inspired Oxygen 07/02/25 08:40 07/02/25 08:54 07/02/25 09:00 Temperature 36.6 C Pulse Rate 63 65 64 Respiratory Rate 16 Blood Pressure 111/48 L 110/52 L 123/55 L Pulse Oximetry 96 Oxygen Delivery Fraction of Inspired Oxygen 07/02/25 09:15 07/02/25 09:30 07/02/25 09:45 Temperature Pulse Rate 65 65 70 Respiratory Rate Blood Pressure 93/46 L 93/43 L 85/48 L Pulse Oximetry Oxygen Delivery Fraction of Inspired Oxygen 07/02/25 10:00 07/02/25 10:15 07/02/25 10:30 Temperature Pulse Rate 65 64 62 Respiratory Rate Blood Pressure 88/36 L 88/40 L 87/43 L Pulse Oximetry Oxygen Delivery Fraction of Inspired Oxygen 07/02/25 10:45 07/02/25 11:00 07/02/25 11:15 Temperature Pulse Rate 64 64 65 Respiratory Rate Blood Pressure 100/41 L 90/38 L 91/43 L Pulse Oximetry Oxygen Delivery Fraction of Inspired Oxygen 07/02/25 11:30 07/02/25 11:45 07/02/25 12:00 Temperature Pulse Rate 65 64 63 Respiratory Rate Blood Pressure 103/55 L 101/53 L 102/56 L Pulse Oximetry Oxygen Delivery Fraction of Inspired Oxygen 07/02/25 12:15 07/02/25 12:30 07/02/25 12:36 Temperature 36.6 C Pulse Rate 64 65 63 Respiratory Rate 18 Blood Pressure 93/56 L 100/52 L 117/54 L Pulse Oximetry 100 Oxygen Delivery Fraction of Inspired Oxygen Intake/Output Intake/Output: Intake & Output 06/29/25 06/30/25 07/01/25 07/02/25 23:59 23:59 23:59 23:59 Intake Total 910 470 880 Output Total 1700 1000 Balance 910 -1230 880 -1000 Meds/Results Medications: Active Medications Generic Name Dose Route Start Last Admin Trade Name Phillipq PRN Reason Stop Dose Admin Acetaminophen 650 mg 06/29/25 11:38 Acetaminophen 325 Mg Tablet PO Q6H PRN Mild Pain (1-3) or Fever Atorvastatin Calcium 40 mg 06/27/25 21:00 07/01/25 20:43 Atorvastatin 40 Mg Tablet PO 40 mg HS [facility] Administration Dextrose 12.5 gm 06/27/25 09:51 Dextrose 50% 25 Gm/50 Ml Syringe IV PUSH PRN PRN Hypoglycemia Protocol Ferrous Sulfate 325 mg 06/28/25 09:00 07/02/25 13:17 Ferrous Sulfate 325 Mg Tablet BY MOUTH 325 mg DAILY [facility] Administration Folic Acid 1 mg 06/28/25 09:00 07/02/25 13:17 Folic Acid 1 Mg Tablet PO 1 mg DAILY [facility] Administration Gabapentin 200 mg 06/27/25 21:00 07/01/25 20:43 Gabapentin 100 Mg Capsule PO 200 mg HS [facility]ADOR Administration Glucagon 1 mg 06/27/25 09:51 Glucagon For Inj 1 Mg Vial IM PRN PRN Hypoglycemia Protocol Glucose 15 gm 06/27/25 09:51 Glucose Oral Gel 15 Gm Of Glucse In 37.5 Gm Tube PO PRN PRN Hypoglycemia Protocol Heparin Sodium (Porcine) 5,000 units 06/26/25 21:00 07/02/25 13:19 Heparin Sodium 5,000 Units/Ml Vial SUB-Q Not Given Q12HR [facility]OR Dextrose 1,000 mls @ 100 mls/hr 06/27/25 09:51 Dextrose 5% 1,000 Ml IVPB PRN PRN Hypoglycemia Protocol Albumin Human 50 mls @ 999 mls/hr 06/27/25 23:00 Albutein IVPB 07/27/25 22:59 Q10M PRN HYPOTENSION Cefepime HCl 2 gm/ Sodium 50 mls @ 100 mls/hr 06/30/25 18:00 06/30/25 18:00 Chloride IVPB Infused MOWEFR [facility] Infusion Albumin Human 50 mls @ 999 mls/hr 07/02/25 07:14 07/02/25 10:06 Albutein IVPB 07/03/25 07:13 999 mls/hr Q10M PRN Administration HYPOTENSION Ibuprofen 400 mg 06/29/25 11:38 Ibuprofen 400 Mg Tablet PO Q6H PRN Pain Rated 4-6 Insulin Aspart 2 - 5 units 07/02/25 08:00 07/02/25 13:19 Insulin Aspart (*Bkc) 100 Units/Ml SUB-Q Not Given [facility] Protocol Lidocaine/Prilocaine 1 each 06/28/25 06:10 Lidocaine/Prilocaine Cream 2.5-2.5% Tube TOPICAL WITH DIALYSIS PRN for dialysis Protocol Metronidazole 500 mg 06/30/25 14:00 07/02/25 13:17 Metronidazole 500 Mg Tablet PO 500 mg Q8HR [facility] Administration Midodrine 10 mg 06/27/25 13:00 07/02/25 13:17 Midodrine Hcl 10 Mg Tablet PO 10 mg TID [facility] Administration Mirtazapine 15 mg 06/27/25 21:00 07/01/25 20:43 Mirtazapine 15 Mg Tablet PO 15 mg HS [facility] Administration Mirtazapine 7.5 mg 06/27/25 21:00 07/01/25 20:43 Mirtazapine 7.5 Mg Tablet PO 7.5 mg HS [facility] Administration Pantoprazole Sodium 40 mg 06/26/25 21:00 07/02/25 12:07 Pantoprazole Sodium Iv 40 Mg Vial IV PUSH Not Given Q12HR [facility] Senna/Docusate Sodium 1 tab 06/27/25 09:01 Senna/Docusate Sodium Tablet PO BID PRN Constipation Sertraline HCl 50 mg 06/28/25 09:00 07/02/25 13:17 Sertraline Hcl 50 Mg Tablet PO 50 mg QAM [facility] Administration Sevelamer Carbonate 800 mg 06/27/25 17:00 07/01/25 16:27 Sevelamer Carbonate 800 Mg Tablet PO 800 mg DAILY@1700 [facility] Administration Sodium Chloride 20 ml 06/26/25 11:46 Central Line Flush IV PUSH PRN PRN after blood draws Sodium Hypochlorite 1 applic 06/27/25 21:00 07/01/25 20:44 Sod Hypochlorite 1/4 Strength 473 Ml TOPICAL 1 applic Q12HR [facility] Administration Zinc Sulfate 220 mg 06/28/25 09:00 07/02/25 13:17 Zinc Sulfate 220 Mg Capsule PO 220 mg QAM [facility] Administration Radiology Results: ITS Impressions Abdomen/Pelvis CT 06/26/25 07:59 IMPRESSION: 1. Decubitus wounds. 2. No evidence of osteomyelitis. 3. No evidence of associated abscess. 4. No acute abnormality within abdomen or pelvis. Chest X-Ray 06/28/25 08:20 Impression: CHF. Superimposed left lower lobe pneumonia suspected. The findings are progressed Labs Labs: Laboratory Results - last 24 hr 07/01/25 07/01/25 07/02/25 16:23 19:58 04:38 WBC 7.2 RBC 3.56 L Hgb 10.9 L Hct 36.0 L MCV 101.1 H MCH 30.6 MCHC 30.3 L RDW 18.8 H Plt Count 110 L MPV 13.0 H Sodium 143 Potassium 4.0 Chloride 104 Carbon Dioxide 29 Anion Gap 10 BUN 26 H D Creatinine 3.96 H Estim Creat Clear Calc Not Reportable Estimated GFR 15 L Glucose 196 H POC Capillary Glucose 193 H 194 H Calcium 8.7 Phosphorus 2.1 L Magnesium 2.3 Albumin 3.3 L 07/02/25 07/02/25 08:14 13:18 WBC RBC Hgb Hct MCV MCH MCHC RDW Plt Count MPV Sodium Potassium Chloride Carbon Dioxide Anion Gap BUN Creatinine Estim Creat Clear Calc Estimated GFR Glucose POC Capillary Glucose 155 H 116 H Calcium Phosphorus Magnesium Albumin
[2025-07-02] MEDS: SEVELAMER CARBONATE 800 MG TABLET PO (17:48)
[2025-07-02] MEDS: SOD HYPOCHLORITE 1/4 STRENGTH 473 ML 1 APPLIC TOPICAL ×2 (17:48→22:38)
[2025-07-02] MEDS: PANTOPRAZOLE SODIUM IV 40 MG VIAL IV PUSH (22:31)
[2025-07-02] MEDS: ATORVASTATIN 40 MG TABLET PO (22:32)
[2025-07-02] MEDS: CEFEPIME 2 GM in SODIUM CHLORIDE 0.9% IV 50 ML 100 ML IVPB (22:32)
[2025-07-02] MEDS: GABAPENTIN 100 MG CAPSULE 200 MG PO (22:32)
[2025-07-02] MEDS: MIRTAZAPINE 15 MG TABLET PO (22:32)
[2025-07-02] MEDS: MIRTAZAPINE 7.5 MG TABLET PO (22:32)
[2025-07-03] VITALS (9 sets, daily range): BP systolic 112–123; BP diastolic 48–54; PULSE 59–92; RESP 12–18; TEMP 36.4–36.8; O2SAT 97–100
[2025-07-03 05:29] LABS: Hematocrit 38.5 % (42.0-52.0); Hemoglobin 11.8 g/dL (14.0-18.0); Mean Corpuscular HGB Conc 30.6 g/dl (32-36); Mean Corpuscular Hemoglobin 30.7 pg (26-34); Mean Corpuscular Volume 100.3 fl (80-100); Platelet Count Result 103 k/mm3 (150-375); Red Blood Count 3.84 M/mm3 (4.6-6.20); White Blood Count 9.2 K/mm3 (4.5-10.0)
[2025-07-03 05:48] LABS: Alanine Aminotransferase 12 U/L (6-50); Albumin Level 3.5 g/dL (3.5-5.1); Alkaline Phosphatase 178 U/L (38-126); Anion Gap 7 mmol/L (4-12); Aspartate Amino Transferase 21 U/L (17-59); Bilirubin,Total 0.6 mg/dL (0.2-1.3); Blood Urea Nitrogen 17 mg/dL (9-20); Calcium 8.6 mg/dL (8.4-10.2); Carbon Dioxide 32 mmol/L (22-30); Chloride 103 mmol/L (98-107); Estimated Glomerular Filt Rate 23; Glucose 162 mg/dL (65-110); Magnesium 2.3 mg/dL (1.6-2.3); Potassium 3.6 mmol/L (3.4-5.0); Sodium 142 mmol/L (137-145); Total Protein 7.6 g/dL (6.3-8.2)
[2025-07-03] MEDS: SERTRALINE HCL 50 MG TABLET PO (08:44)
[2025-07-03] MEDS: FERROUS SULFATE 325 MG TABLET BY MOUTH (08:44)
[2025-07-03] MEDS: ZINC SULFATE 220 MG CAPSULE PO (08:44)
[2025-07-03] MEDS: MIDODRINE HCL 10 MG TABLET PO ×3 (08:44→16:49)
[2025-07-03] MEDS: FOLIC ACID 1 MG TABLET PO (08:44)
[2025-07-03] MEDS: PANTOPRAZOLE SODIUM IV 40 MG VIAL IV PUSH ×2 (08:45→22:10)
--- NOTE | 2025-07-03 09:41 | P.PNIM_ITS ---
Progress Note: A&P Assessment and Plan (1) Shock: Code(s): R57.9 - Shock, unspecified Status: Acute Assessment and Plan: Patient met SIRS criteria due to RR >20, WBC >12, +fever. Presented to [facility] on 06/26 with altered mental status, hypotension, shortness of breath, and fever. Patient started on norepinephrine gtt for acute hypotension to maintain MAP >65. Shock secondary to sepsis versus cardiogenic. Given patient has history of biventricular dysfunction cardiogenic cannot be excluded, however clinical picture (fever, shortness of breath) and imaging findings concerning for pneumonia as well as the chronic decubitus ulcer more so fit the picture of sepsis. - Lactic 2.0, check procalcitonin. - IV fluids held as the patient's BNP was significantly elevated and imaging showed pulmonary edema - CXR on 06/26 showed bilateral infiltrates/pulmonary edema with possible perihilar and airspace opacity/pneumonia - started on broad-spectrum antibiotics including cefepime, vancomycin, doxycycl ine, and Flagyl on 06/26 to cover pneumonia and possible pathogens affecting the patient's decubitus ulcer - admission to the ICU with hotel room attendant consulted - continue norepinephrine to maintain map greater than 65 07/02/2025 Resolved. Patient is on dialysis. Continue monitor. 07/03/2025 Stable, continue current (2) Pulmonary edema: Qualifiers: Chronicity: acute Qualified Code(s): J81.0 - Acute pulmonary edema Code(s): J81.1 - Chronic pulmonary edema Status: Acute Assessment and Plan: Pulmonary edema seen on CXR. Patient has history of combined systolic/diastolic CHF. Fluid balance managed via dialysis that he receives Mondays, Wednesdays, Fridays. Has not missed any treatments and has been able to receive his full t reatments. - nephrology consulted for inpatient dialysis. - hotel room attendant spoke with Nishi ROBERTSON, plan for dialysis today (06/26) - monitor oxygen saturations 07/02/2025 Patient is on dialysis. Will continue monitor 07/03/2025 Stable, continue current treatment (3) Pneumonia: Qualifiers: Laterality: left Lung location: unspecified part of lung Pneumonia type: due to unspecified organism Qualified Code(s): J18.9 - Pneumonia, unspecified organism Code(s): J18.9 - Pneumonia, unspecified organism Status: Acute Assessment and Plan: - antibiotics initiated as above, see shock - blood cultures pending - MRSA PCR negative - antipyretic p.r.n. (4) Decubitus ulcer: Code(s): L89.90 - Pressure ulcer of unspecified site, unspecified stage Status: Acute Assessment and Plan: Patient has longstanding chronic decubitus ulcer. CT of the abdomen/pelvis showed no current complicating features including osteomyelitis or abscess. - general surgery consulted (5) ESRD (end stage renal disease) on dialysis: Code(s): N18.6 - End stage renal disease; Z99.2 - Dependence on renal dialysis Status: Acute Assessment and Plan: Patient has history of ESRD on hemodialysis. Receives treatment on Mondays, Wednesdays, Fridays. Per chart review, the patient was able to receive his full dialysis treatment yesterday (Saturday, 06/25). However the patient currently appears volume overloaded based off clinical exam and CXR findings. Talent Acquisition Program Manager spoke with airworthiness safety inspector, plan for dialysis today. Nephrology aware patient is currently requiring norepinephrine and currently has a mild O2 requirement. - monitor electrolytes - monitor blood pressure (6) Type 2 diabetes mellitus: Qualifiers: Diabetes mellitus usp insulin use: without terminal block assembler use Diabetes mellitus complication status: with kidney complications Diabetes mellitus complication detail: with chronic kidney disease Chronic kidney disease stage: on chronic dialysis Qualified Code(s): E11.22 - Type 2 diabetes mellitus with diabetic chronic kidney disease; N18.6 - End stage renal disease; Z99.2 - Dependence on renal dialysis Code(s): E11.9 - Type 2 diabetes mellitus without complications Status: Chronic Assessment and Plan: History of type 2 diabetes complicated by ESRD, bilateral BKA, and diabetic neuropathy. - hypoglycemia protocol - POC blood glucose Q6H - hold home medications including Sevelamer and Tradjenta - correct regimen ordered - low dose Q6H - A1C 5.6% on 10/20/2024 (7) Anemia of chronic disease: Code(s): D63.8 - Anemia in other chronic diseases classified elsewhere Status: Chronic Assessment and Plan: Patient has history of anemia of chronic disease (ESRD). - Hgb 9.4 upon admission, at baseline - transfuse if <7 - monitor Plan patient with septic shock resulting in AMS presented to ER with hypotension most likely 2/2 sacral wound, patient is being treated with Cefepime, doxycycline, and Flagyl, patient clinical symptoms are improving and he is off the pressure and blood pressure is trending up, and his white counts are trending up, patient was seen by general surgery service and recommended, will require debridement of his sacral wound, patient and family has agreed. patient will be transferred out of ICU to IMU, will monitor, once clinically stable, will have PT/OT evaluate the patient and patient will benefit going to rehab. will monitor, patient family is present and gave updates. on 06/27 patient was moved out of ICU to medical floor, seen in the dialysis center, having HD stats feels better, he is scheduled to have debridement later today with general surgery, he remains clinically stable, will monitor. on 06/28 patient has his wound debridement and tolerated, patient still has episodes of confusion, agitation and restlessness, patient one bottle of blood culture is growing Clostridium perfringens, patient is being treated with Cefepime, doxycycline, Flagy, and vancomycin, white counts are tending down, and has no fever, most likely due to his pneumonia, will follow up on blood culture, will discuss with clinical pharmacist and further recommendation to follow. patient blood culture 1 bottle is growing Clostridium perfringens and another bottle is growing Eggerthella (Eubacterium) lenta sensitivity is pending, patient currently being treated with Cefepime, and Flagyl, seen by ID recommended to give Cefepime with HD, and switch Flagyle to PO, Patient was seen by general surgery s/p debridement POD#3, today patient is more alert and able to communicate, will monitor. GI Prophylaxis: Pantoprazole IV DVT Prophylaxis: Heparin SQ IV fluids: none, concern for volume overload and plan for diuresis via HD Lines/Tubes: Peripheral IV Code Status: DNR, paperwork in patient's chart Subjective Date/time seen: 07/03/25 09:41 Interval history: Patient was seen during the morning rounds today. Patient is feeling much better. No shortness of breath or chest pain. Review of Systems Review of Systems: All systems reviewed & are unremarkable except as noted in HPI and below ROS unobtainable: Yes unobtainable due to mental status Exam Narrative: Patient is comfortable, NAD HEENT: eyes are clear and none icteric LUNGS:CTA HEART: RR S1S2 ABD: BS+, Soft and nontender Lower extremities: no edema SKIN: nonjaundiced Neuro: grossly intact. Const: Other: , male, appears older than stated age, ill-appearing, mild respiratory distress noted HENMT: Face/Nose/Sinus: Normal nares present Mouth: Yes dry mucous membranes Eyes: General: appearance normal, both eyes and all related structures Sclera: sclerae normal Pupils: Equal, round and reactive pupils present EOM: EOMs intact bilaterally Resp: Other: Mild tachypnea without accessory muscle use. Nasal cannula place, tolerating well. Coarse breath sounds bilaterally in the upper and lower lung de [place], left worse than right. No rales or wheezing appreciated. Decreased bibasilarly. Cardio: Rate: regular rate Rhythm: regular rhythm Other: S1-S2 present without murmur, rub, ectopy GI: Other: Abdomen soft, nondistended, nontender. Normoactive bowel sounds in all quadrants. Skin: General skin exam: normal color Other: Small areas of eschar to the left hand, dorsal aspect. No signs of infection. Some surrounding erythema. Neuro: Cranial nerves: Yes Equal, round and reactive pupils present Other: Patient is alert, will attempt to follow commands. A&O times 0. Opens eyes to name. Extrem: Other: Bilateral BKAs. No skin breakdown on exam. RUE dialysis fistula, +thrill and bruit. Psych: Other: Unable to assess at this time Objective Data Vital Signs Vital Signs: Vital Signs - 24 hr 07/02/25 09:45 07/02/25 10:00 07/02/25 10:15 Temperature Pulse Rate 70 65 64 Respiratory Rate Blood Pressure 85/48 L 88/36 L 88/40 L Pulse Oximetry Oxygen Delivery 07/02/25 10:30 07/02/25 10:45 07/02/25 11:00 Temperature Pulse Rate 62 64 64 Respiratory Rate Blood Pressure 87/43 L 100/41 L 90/38 L Pulse Oximetry Oxygen Delivery 07/02/25 11:15 07/02/25 11:30 07/02/25 11:45 Temperature Pulse Rate 65 65 64 Respiratory Rate Blood Pressure 91/43 L 103/55 L 101/53 L Pulse Oximetry Oxygen Delivery 07/02/25 12:00 07/02/25 12:00 07/02/25 12:15 Temperature Pulse Rate 63 63 64 Respiratory Rate Blood Pressure 102/56 L 93/56 L Pulse Oximetry Oxygen Delivery 07/02/25 12:30 07/02/25 12:36 07/02/25 14:09 Temperature 36.6 C 36.6 C Pulse Rate 65 63 71 Respiratory Rate 18 16 Blood Pressure 100/52 L 117/54 L 102/50 L Pulse Oximetry 100 92 Oxygen Delivery 07/02/25 16:00 07/02/25 19:38 07/02/25 20:00 Temperature 36.1 C L Pulse Rate 67 63 Respiratory Rate 18 Blood Pressure 130/51 L Pulse Oximetry 99 Oxygen Delivery Room Air 07/02/25 20:00 07/03/25 00:00 07/03/25 04:00 Temperature Pulse Rate 61 72 64 Respiratory Rate Blood Pressure Pulse Oximetry Oxygen Delivery 07/03/25 04:34 07/03/25 08:00 07/03/25 08:05 Temperature 36.4 C Pulse Rate 62 64 Respiratory Rate 18 Blood Pressure 112/48 L Pulse Oximetry 98 Oxygen Delivery Room Air Intake/Output Intake/Output: Intake & Output 06/30/25 07/01/25 07/02/25 07/03/25 23:59 23:59 23:59 23:59 Intake Total 470 880 930 478 Output Total 1700 1000 Balance -1230 880 -70 478 Meds/Results Medications: Active Medications Generic Name Dose Route Start Last Admin Trade Name Freq PRN Reason Stop Dose Admin Acetaminophen 650 mg 06/29/25 11:38 Acetaminophen 325 Mg Tablet PO Q6H PRN Mild Pain (1-3) or Fever Atorvastatin Calcium 40 mg 06/27/25 21:00 07/02/25 22:32 Atorvastatin 40 Mg Tablet PO 40 mg HS SALVADOR Administration Dextrose 12.5 gm 06/27/25 09:51 Dextrose 50% 25 Gm/50 Ml Syringe IV PUSH PRN PRN Hypoglycemia Protocol Ferrous Sulfate 325 mg 06/28/25 09:00 07/03/25 08:44 Ferrous Sulfate 325 Mg Tablet BY MOUTH 325 mg DAILY SALVADOR Administration Folic Acid 1 mg 06/28/25 09:00 07/03/25 08:44 Folic Acid 1 Mg Tablet PO 1 mg DAILY SALVADOR Administration Gabapentin 200 mg 06/27/25 21:00 07/02/25 22:32 Gabapentin 100 Mg Capsule PO 200 mg HS SALVADOR Administration Glucagon 1 mg 06/27/25 09:51 Glucagon For Inj 1 Mg Vial IM PRN PRN Hypoglycemia Protocol Glucose 15 gm 06/27/25 09:51 Glucose Oral Gel 15 Gm Of Glucse In 37.5 Gm Tube PO PRN PRN Hypoglycemia Protocol Heparin Sodium (Porcine) 5,000 units 06/26/25 21:00 07/03/25 08:45 Heparin Sodium 5,000 Units/Ml Vial SUB-Q 5,000 units Q12HR SALVADOR Administration Dextrose 1,000 mls @ 100 mls/hr 06/27/25 09:51 Dextrose 5% 1,000 Ml IVPB PRN PRN Hypoglycemia Protocol Albumin Human 50 mls @ 999 mls/hr 06/27/25 23:00 Albutein IVPB 07/27/25 22:59 Q10M PRN HYPOTENSION Cefepime HCl 2 gm/ Sodium 50 mls @ 100 mls/hr 06/30/25 18:00 07/02/25 23:02 Chloride IVPB Infused MOWEFR SALVADOR Infusion Ibuprofen 400 mg 06/29/25 11:38 Ibuprofen 400 Mg Tablet PO Q6H PRN Pain Rated 4-6 Insulin Aspart 2 - 5 units 07/02/25 08:00 07/03/25 08:46 Insulin Aspart (*Bkc) 100 Units/Ml SUB-Q Not Given [facility]HS SALVADOR Protocol Lidocaine/Prilocaine 1 each 06/28/25 06:10 Lidocaine/Prilocaine Cream 2.5-2.5% Tube TOPICAL WITH DIALYSIS PRN for dialysis Protocol Metronidazole 500 mg 06/30/25 14:00 07/03/25 06:08 Metronidazole 500 Mg Tablet PO 500 mg Q8HR SALVADOR Administration Midodrine 10 mg 06/27/25 13:00 07/03/25 08:44 Midodrine Hcl 10 Mg Tablet PO 10 mg TID SALVADOR Administration Mirtazapine 15 mg 06/27/25 21:00 07/02/25 22:32 Mirtazapine 15 Mg Tablet PO 15 mg HS SALVADOR Administration Mirtazapine 7.5 mg 06/27/25 21:00 07/02/25 22:32 Mirtazapine 7.5 Mg Tablet PO 7.5 mg HS SALVADOR Administration Pantoprazole Sodium 40 mg 06/26/25 21:00 07/03/25 08:45 Pantoprazole Sodium Iv 40 Mg Vial IV PUSH 40 mg Q12HR SALVADOR Administration Senna/Docusate Sodium 1 tab 06/27/25 09:01 Senna/Docusate Sodium Tablet PO BID PRN Constipation Sertraline HCl 50 mg 06/28/25 09:00 07/03/25 08:44 Sertraline Hcl 50 Mg Tablet PO 50 mg QAM SALVADOR Administration Sevelamer Carbonate 800 mg 06/27/25 17:00 07/02/25 17:48 Sevelamer Carbonate 800 Mg Tablet PO 800 mg DAILY@1700 SALVADOR Administration Sodium Chloride 20 ml 06/26/25 11:46 Central Line Flush IV PUSH PRN PRN after blood draws Sodium Hypochlorite 1 applic 06/27/25 21:00 07/02/25 22:38 Sod Hypochlorite 1/4 Strength 473 Ml TOPICAL 1 applic Q12HR SALVADOR Administration Zinc Sulfate 220 mg 06/28/25 09:00 07/03/25 08:44 Zinc Sulfate 220 Mg Capsule PO 220 mg QAM SALVADOR Administration Radiology Results: ITS Impressions Abdomen/Pelvis CT 06/26/25 07:59 IMPRESSION: 1. Decubitus wounds. 2. No evidence of osteomyelitis. 3. No evidence of associated abscess. 4. No acute abnormality within abdomen or pelvis. Chest X-Ray 06/28/25 08:20 Impression: CHF. Superimposed left lower lobe pneumonia suspected. The findings are progressed Labs Labs: Laboratory Results - last 24 hr 07/02/25 07/02/25 07/02/25 13:18 16:39 19:42 WBC RBC Hgb Hct MCV MCH MCHC RDW Plt Count MPV Sodium Potassium Chloride Carbon Dioxide Anion Gap BUN Creatinine Estim Creat Clear Calc Estimated GFR Glucose POC Capillary Glucose 116 H 176 H 191 H Calcium Phosphorus Magnesium Total Bilirubin AST ALT Alkaline Phosphatase Total Protein Albumin 07/03/25 07/03/25 04:29 07:26 WBC 9.2 RBC 3.84 L Hgb 11.8 L Hct 38.5 L MCV 100.3 H MCH 30.7 MCHC 30.6 L RDW 19.6 H Plt Count 103 L MPV TNP Sodium 142 Potassium 3.6 Chloride 103 Carbon Dioxide 32 H Anion Gap 7 BUN 17 Creatinine 2.84 H Estim Creat Clear Calc Not Reportable Estimated GFR 23 L Glucose 162 H POC Capillary Glucose 135 H Calcium 8.6 Phosphorus 1.1 L Magnesium 2.3 Total Bilirubin 0.6 AST 21 ALT 12 Alkaline Phosphatase 178 H Total Protein 7.6 Albumin 3.5 Quality VTE Prophylaxis VTE prophylaxis: pharmacologic ordered
--- NOTE | 2025-07-03 11:30 | P.PNNP_ITS ---
Progress Note: A&P Assessment and Plan (1) ESRD (end stage renal disease): Code(s): N18.6 - End stage renal disease Status: Chronic Assessment and Plan: * HD yesterday * continue M/W/F schedule while hospitalized * follow electrolytes, volume status, and clearance (2) Hypotension: Code(s): I95.9 - Hypotension, unspecified Status: Acute Assessment and Plan: * some degree of chronicity with regard to this issue * on midodrine as an outpatient * suspect acute worsening due to infection (sacral decubitus ulcer + pneumonia) * associated with fever, leukocytosis, altered mental status and shortness of breath on admission * initially on vasopressor therapy but weaned off * resumed on midodrine therapy (3) Decubitus ulcer: Code(s): L89.90 - Pressure ulcer of unspecified site, unspecified stage Status: Acute Assessment and Plan: * significant amount of drainage noted in association with sloughing necrotic tissue * General Surgery following * s/p debridement (down to bone) on 06/28 * on antibiotics * local wound care (wound care following) * continue supportive therapy (4) Bacteremia: Code(s): R78.81 - Bacteremia Status: Acute Assessment and Plan: * blood cultures noted: * from 06/26 - Clostridium perfringens & Eggerthella(Eubacterium) lenta * from 06/29 - no growth to date * Infectious Disease following * on antibiotics * continue current therapy (5) Fluid overload: Qualifiers: Hypervolemia type: other Qualified Code(s): E87.79 - Other fluid overload Code(s): E87.70 - Fluid overload, unspecified Status: Acute Assessment and Plan: * improvement noted * as noted by imaging on presentation * likely etiology of shortness of breath on admission * fluid removal as tolerated by hemodynamics * extra session of HD on 06/26 (in ICU) * continue fluid removal as tolerated by hemodynamics * suspect outpatient dry weight needs adjustment * follow respiratory status (6) Pneumonia: Qualifiers: Laterality: left Lung location: unspecified part of lung Pneumonia type: due to unspecified organism Qualified Code(s): J18.9 - Pneumonia, unspecified organism Code(s): J18.9 - Pneumonia, unspecified organism Status: Acute Assessment and Plan: * as suggested by admission imaging * follow culture data * on antibiotics (7) Anemia: Code(s): D64.9 - Anemia, unspecified Status: Chronic Assessment and Plan: * due to ESRD and possibly worsened by acute illness * Epogen with HD * follow trend of H/H (8) Diabetes mellitus with multiple complications: Code(s): E11.8 - Type 2 diabetes mellitus with unspecified complications Status: Chronic Assessment and Plan: * follow Accu-Cheks * glycemic control per hospitalist Will continue to follow. L Subjective Date/time seen: 07/03/25 11:30 Interval history: Follow-up for end stage renal disease on hemodialysis. Tolerated dialysis treatment yesterday but fluid removal was somewhat challenging due to relative hypotension during HD session; no apparent distress noted at the time of my visit; no apparent distress noted when seen; no events overnight. Exam 2 Narrative: General: WD/WN male in NAD Heart: normal S1 and S2; no rub Lungs: decreased at bases Abdomen: soft, nontender, nondistended, positive bowel sounds Extremities: no cyanosis or clubbing; trace edema; s/p bilateral BKAs Skin: warm and dry Objective Data Vital Signs Vital Signs: Vital Signs Temp Pulse Resp BP Pulse Ox O2 Del Method 07/03/25 11:00 69 07/03/25 08:05 Room Air 07/03/25 08:00 64 07/03/25 04:34 97.6 F 62 18 112/48 L 98 07/03/25 04:00 64 07/03/25 00:00 72 07/02/25 20:00 61 07/02/25 20:00 Room Air 07/02/25 19:38 96.9 F L 63 18 130/51 L 99 Intake/Output Intake/Output: Intake & Output 06/30/25 07/01/25 07/02/25 07/03/25 23:59 23:59 23:59 23:59 Intake Total 470 880 930 818 Output Total 1700 1000 Balance -1230 880 -70 818 Meds/Results Medications: Active Medications Generic Name Dose Route Start Last Admin Trade Name Freq PRN Reason Stop Dose Admin Acetaminophen 650 mg 06/29/25 11:38 Acetaminophen 325 Mg Tablet PO Q6H PRN Mild Pain (1-3) or Fever Atorvastatin Calcium 40 mg 06/27/25 21:00 07/02/25 22:32 Atorvastatin 40 Mg Tablet PO 40 mg HS SALVADOR Administration Dextrose 12.5 gm 06/27/25 09:51 Dextrose 50% 25 Gm/50 Ml Syringe IV PUSH PRN PRN Hypoglycemia Protocol Ferrous Sulfate 325 mg 06/28/25 09:00 07/03/25 08:44 Ferrous Sulfate 325 Mg Tablet BY MOUTH 325 mg DAILY SALVADOR Administration Folic Acid 1 mg 06/28/25 09:00 07/03/25 08:44 Folic Acid 1 Mg Tablet PO 1 mg DAILY SALVADOR Administration Gabapentin 200 mg 06/27/25 21:00 07/02/25 22:32 Gabapentin 100 Mg Capsule PO 200 mg HS SALVADOR Administration Glucagon 1 mg 06/27/25 09:51 Glucagon For Inj 1 Mg Vial IM PRN PRN Hypoglycemia Protocol Glucose 15 gm 06/27/25 09:51 Glucose Oral Gel 15 Gm Of Glucse In 37.5 Gm Tube PO PRN PRN Hypoglycemia Protocol Heparin Sodium (Porcine) 5,000 units 06/26/25 21:00 07/03/25 08:45 Heparin Sodium 5,000 Units/Ml Vial SUB-Q 5,000 units Q12HR SAL[facility]ADOR Administration Dextrose 1,000 mls @ 100 mls/hr 06/27/25 09:51 Dextrose 5% 1,000 Ml IVPB PRN PRN Hypoglycemia Protocol Albumin Human 50 mls @ 999 mls/hr 06/27/25 23:00 Albutein IVPB 07/27/25 22:59 Q10M PRN HYPOTENSION Cefepime HCl 2 gm/ Sodium 50 mls @ 100 mls/hr 06/30/25 18:00 07/02/25 23:02 Chloride IVPB Infused MOWEFR SALVADOR Infusion Ibuprofen 400 mg 06/29/25 11:38 Ibuprofen 400 Mg Tablet PO Q6H PRN Pain Rated 4-6 Insulin Aspart 2 - 5 units 07/02/25 08:00 07/03/25 16:50 Insulin Aspart (*Bkc) 100 Units/Ml SUB-Q 2 units [facility] SALVADOR Administration Protocol Lidocaine/Prilocaine 1 each 06/28/25 06:10 Lidocaine/Prilocaine Cream 2.5-2.5% Tube TOPICAL WITH DIALYSIS PRN for dialysis Protocol Metronidazole 500 mg 06/30/25 14:00 07/03/25 13:43 Metronidazole 500 Mg Tablet PO 500 mg Q8HR SAL[facility]ADOR Administration Midodrine 10 mg 06/27/25 13:00 07/03/25 16:49 Midodrine Hcl 10 Mg Tablet PO 10 mg TID SALVADOR Administration Mirtazapine 15 mg 06/27/25 21:00 07/02/25 22:32 Mirtazapine 15 Mg Tablet PO 15 mg HS SALVADOR Administration Mirtazapine 7.5 mg 06/27/25 21:00 07/02/25 22:32 Mirtazapine 7.5 Mg Tablet PO 7.5 mg HS SALVADOR Administration Pantoprazole Sodium 40 mg 06/26/25 21:00 07/03/25 08:45 Pantoprazole Sodium Iv 40 Mg Vial IV PUSH 40 mg Q12HR SALVADOR Administration Senna/Docusate Sodium 1 tab 06/27/25 09:01 Senna/Docusate Sodium Tablet PO BID PRN Constipation Sertraline HCl 50 mg 06/28/25 09:00 07/03/25 08:44 Sertraline Hcl 50 Mg Tablet PO 50 mg QAM SALVADOR Administration Sevelamer Carbonate 800 mg 06/27/25 17:00 07/03/25 16:49 Sevelamer Carbonate 800 Mg Tablet PO 800 mg DAILY@1700 SALVADOR Administration Sodium Chloride 20 ml 06/26/25 11:46 Central Line Flush IV PUSH PRN PRN after blood draws Sodium Hypochlorite 1 applic 06/27/25 21:00 07/03/25 16:51 Sod Hypochlorite 1/4 Strength 473 Ml TOPICAL 1 applic Q12HR SALVADOR Administration Zinc Sulfate 220 mg 06/28/25 09:00 07/03/25 08:44 Zinc Sulfate 220 Mg Capsule PO 220 mg QAM SALVADOR Administration Radiology Results: ITS Impressions Abdomen/Pelvis CT 06/26/25 07:59 IMPRESSION: 1. Decubitus wounds. 2. No evidence of osteomyelitis. 3. No evidence of associated abscess. 4. No acute abnormality within abdomen or pelvis. Chest X-Ray 06/28/25 08:20 Impression: CHF. Superimposed left lower lobe pneumonia suspected. The findings are progressed Labs Labs: Laboratory Tests 07/03/25 04:29 07/03/25 04:29 Calcium 8.6 Phosphorus 1.1 L Magnesium 2.3 Total Bilirubin 0.6 AST 21 ALT 12 Alkaline Phosphatase 178 H Total Protein 7.6 Albumin 3.5 Microbiology 06/29/25 17:02 Blood Blood Culture - Preliminary 06/29/25 16:49 Blood Blood Culture - Preliminary 06/26/25 06:22 Blood Blood Culture - Final Eggerthella(Eubacterium) gunjanta 06/26/25 06:33 Blood Blood Culture - Final Clostridium perfringens
[2025-07-03] MEDS: SEVELAMER CARBONATE 800 MG TABLET PO (16:49)
[2025-07-03] MEDS: INSULIN ASPART (*BKC) 100 UNITS/ML SUB-Q (16:50)
[2025-07-03] MEDS: SOD HYPOCHLORITE 1/4 STRENGTH 473 ML 1 APPLIC TOPICAL ×2 (16:51→22:08)
[2025-07-03] MEDS: ATORVASTATIN 40 MG TABLET PO (22:04)
[2025-07-03] MEDS: GABAPENTIN 100 MG CAPSULE 200 MG PO (22:04)
[2025-07-03] MEDS: MIRTAZAPINE 15 MG TABLET PO (22:07)
[2025-07-03] MEDS: MIRTAZAPINE 7.5 MG TABLET PO (22:07)
[2025-07-04] VITALS (9 sets, daily range): BP systolic 106–135; BP diastolic 53–63; PULSE 54–72; RESP 16–17; TEMP 34.8–36.4; O2SAT 97–100
--- NOTE | 2025-07-04 01:59 | PC.NURSE ---
Daylight savings time change
[2025-07-04 05:10] LABS: Hematocrit 40.5 % (42.0-52.0); Hemoglobin 12.1 g/dL (14.0-18.0); Immature Platelet Fraction Pct 6.7 % (0.9-11.2); Mean Corpuscular HGB Conc 29.9 g/dl (32-36); Mean Corpuscular Hemoglobin 30.6 pg (26-34); Mean Corpuscular Volume 102.5 fl (80-100); Platelet Count Result 121 k/mm3 (150-375); Red Blood Count 3.95 M/mm3 (4.6-6.20); White Blood Count 8.3 K/mm3 (4.5-10.0)
[2025-07-04 05:28] LABS: Albumin Level 3.5 g/dL (3.5-5.1); Anion Gap 9 mmol/L (4-12); Blood Urea Nitrogen 32 mg/dL (9-20); Calcium 8.7 mg/dL (8.4-10.2); Carbon Dioxide 29 mmol/L (22-30); Chloride 103 mmol/L (98-107); Estimated Glomerular Filt Rate 15; Glucose 168 mg/dL (65-110); Magnesium 2.4 mg/dL (1.6-2.3); Potassium 3.6 mmol/L (3.4-5.0); Sodium 141 mmol/L (137-145)
[2025-07-04] MEDS: SERTRALINE HCL 50 MG TABLET PO (08:03)
[2025-07-04] MEDS: FERROUS SULFATE 325 MG TABLET BY MOUTH (08:03)
[2025-07-04] MEDS: PANTOPRAZOLE SODIUM IV 40 MG VIAL IV PUSH ×2 (08:03→20:02)
[2025-07-04] MEDS: FOLIC ACID 1 MG TABLET PO (08:03)
[2025-07-04] MEDS: ZINC SULFATE 220 MG CAPSULE PO (08:03)
[2025-07-04] MEDS: MIDODRINE HCL 10 MG TABLET PO ×3 (08:03→17:13)
--- NOTE | 2025-07-04 10:20 | PM.IMPN ---
Progress Note: A&P Assessment and Plan (1) Shock: Code(s): R57.9 - Shock, unspecified Status: Acute Assessment and Plan: Patient met SIRS criteria due to RR >20, WBC >12, +fever. Presented to [facility] on 06/26 with altered mental status, hypotension, shortness of breath, and fever. Patient started on norepinephrine gtt for acute hypotension to maintain MAP >65. Shock secondary to sepsis versus cardiogenic. Given patient has history of biventricular dysfunction cardiogenic cannot be excluded, however clinical picture (fever, shortness of breath) and imaging findings concerning for pneumonia as well as the chronic decubitus ulcer more so fit the picture of sepsis. - Lactic 2.0, check procalcitonin. - IV fluids held as the patient's BNP was significantly elevated and imaging showed pulmonary edema - CXR on 06/26 showed bilateral infiltrates/pulmonary edema with possible perihilar and airspace opacity/pneumonia - started on broad-spectrum antibiotics including cefepime, vancomycin, doxycycline, and Flagyl on 06/26 to cover pneumonia and possible pathogens affecting the patient's decubitus ulcer - admission to the ICU with paralegal instructor consulted - continue norepinephrine to maintain map greater than 65 07/02/2025 Resolved. Patient is on dialysis. Continue monitor. 07/03/2025 Stable, continue current 07/04/2025 Stable, continue current treatment monitor closely. (2) Pulmonary edema: Qualifiers: Chronicity: acute Qualified Code(s): J81.0 - Acute pulmonary edema Code(s): J81.1 - Chronic pulmonary edema Status: Acute Assessment and Plan: Pulmonary edema seen on CXR. Patient has history of combined systolic/diastolic CHF. Fluid balance managed via dialysis that he receives Mondays, Wednesdays, Fridays. Has not missed any treatments and has been able to receive his full treatments. - nephrology consulted for inpatient dialysis. - paralegal instructor spoke with Nishi ROBERTSON, plan for dialysis today (06/26) - monitor oxygen saturations 07/02/2025 Patient is on dialysis. Will continue monitor 07/03/2025 Stable, continue current treatment 07/04/2025 Stable, continue current treatment, monitor closely. (3) Pneumonia: Qualifiers: Laterality: left Lung location: unspecified part of lung Pneumonia type: due to unspecified organism Qualified Code(s): J18.9 - Pneumonia, unspecified organism Code(s): J18.9 - Pneumonia, unspecified organism Status: Acute Assessment and Plan: Getting better, will continue current treatment. (4) Decubitus ulcer: Code(s): L89.90 - Pressure ulcer of unspecified site, unspecified stage Status: Acute Assessment and Plan: Patient has longstanding chronic decubitus ulcer. CT of the abdomen/pelvis showed no current complicating features including osteomyelitis or abscess. - general surgery consulted (5) ESRD (end stage renal disease) on dialysis: Code(s): N18.6 - End stage renal disease; Z99.2 - Dependence on renal dialysis Status: Acute Assessment and Plan: Patient has history of ESRD on hemodialysis. Receives treatment on Mondays, Wednesdays, Fridays. Per chart review, the patient was able to receive his full dialysis treatment yesterday (Saturday, 06/25). However the patient currently appears volume overloaded based off clinical exam and CXR findings. Sheet Roller Operator spoke with hotel attendant, plan for dialysis today. Nephrology aware patient is currently requiring norepinephrine and currently has a mild O2 requirement. - monitor electrolytes - monitor blood pressure (6) Type 2 diabetes mellitus: Qualifiers: Diabetes mellitus senior living insulin use: without senior living use Diabetes mellitus complication status: with kidney complications Diabetes mellitus complication detail: with chronic kidney disease Chronic kidney disease stage: on chronic dialysis Qualified Code(s): E11.22 - Type 2 diabetes mellitus with diabetic chronic kidney disease; N18.6 - End stage renal disease; Z99.2 - Dependence on renal dialysis Code(s): E11.9 - Type 2 diabetes mellitus without complications Status: Chronic Assessment and Plan: History of type 2 diabetes complicated by ESRD, bilateral BKA, and diabetic neuropathy. - hypoglycemia protocol - POC blood glucose Q6H - hold home medications including Sevelamer and Tradjenta - correct regimen ordered - low dose Q6H - A1C 5.6% on 10/20/2024 (7) Anemia of chronic disease: Code(s): D63.8 - Anemia in other chronic diseases classified elsewhere Status: Chronic Assessment and Plan: Patient has history of anemia of chronic disease (ESRD). - Hgb 9.4 upon admission, at baseline - transfuse if <7 - monitor Plan patient with septic shock resulting in AMS presented to ER with hypotension most likely 2/2 sacral wound, patient is being treated with Cefepime, doxycycline, and Flagyl, patient clinical symptoms are improving and he is off the pressure and blood pressure is trending up, and his white counts are trending up, patient was seen by general surgery service and recommended, will require debridement of his sacral wound, patient and family has agreed. patient will be transferred out of ICU to IMU, will monitor, once clinically stable, will have PT/OT evaluate the patient and patient will benefit going to rehab. will monitor, patient family is present and gave updates. on 06/27 patient was moved out of ICU to medical floor, seen in the dialysis center, having HD stats feels better, he is scheduled to have debridement later today with general surgery, he remains clinically stable, will monitor. on 06/28 patient has his wound debridement and tolerated, patient still has episodes of confusion, agitation and restlessness, patient one bottle of blood culture is growing Clostridium perfringens, patient is being treated with Cefepime, doxycycline, Flagy, and vancomycin, white counts are tending down, and has no fever, most likely due to his pneumonia, will follow up on blood culture, will discuss with clinical pharmacist and further recommendation to follow. patient blood culture 1 bottle is growing Clostridium perfringens and another bottle is growing Eggerthella (Eubacterium) lenta sensitivity is pending, patient currently being treated with Cefepime, and Flagyl, seen by ID recommended to give Cefepime with HD, and switch Flagyle to PO, Patient was seen by general surgery s/p debridement POD#3, today patient is more alert and able to communicate, will monitor. GI Prophylaxis: Pantoprazole IV DVT Prophylaxis: Heparin SQ IV fluids: none, concern for volume overload and plan for diuresis via HD Lines/Tubes: Peripheral IV Code Status: DNR, paperwork in patient's chart Subjective Date/time seen: 07/04/25 10:20 Interval history: Patient was seen during the morning rounds today. Patient is feeling better. Decreased shortness of breath, no chest pain. Review of Systems Review of Systems: All systems reviewed & are unremarkable except as noted in HPI and below ROS unobtainable: Yes unobtainable due to mental status Exam Narrative: Patient is comfortable, NAD HEENT: eyes are clear and none icteric LUNGS:CTA HEART: RR S1S2 ABD: BS+, Soft and nontender Lower extremities: no edema SKIN: nonjaundiced Neuro: grossly intact. Const: Other: , male, appears older than stated age, ill-appearing, mild respiratory distress noted HENMT: Face/Nose/Sinus: Normal nares present Mouth: Yes dry mucous membranes Eyes: General: appearance normal, both eyes and all related structures Sclera: sclerae normal Pupils: Equal, round and reactive pupils present EOM: EOMs intact bilaterally Resp: Other: Mild tachypnea without accessory muscle use. Nasal cannula place, tolerating well. Coarse breath sounds bilaterally in the upper and lower lung [place], left worse than right. No rales or wheezing appreciated. Decreased bibasilarly. Cardio: Rate: regular rate Rhythm: regular rhythm Other: S1-S2 present without murmur, rub, ectopy GI: Other: Abdomen soft, nondistended, nontender. Normoactive bowel sounds in all quadrants. Skin: General skin exam: normal color Other: Small areas of eschar to the left hand, dorsal aspect. No signs of infection. Some surrounding erythema. Neuro: Cranial nerves: Yes Equal, round and reactive pupils present Other: Patient is alert, will attempt to follow commands. A&O times 0. Opens eyes to name. Extrem: Other: Bilateral BKAs. No skin breakdown on exam. RUE dialysis fistula, +thrill and bruit. Psych: Other: Unable to assess at this time Objective Data Vital Signs Vital Signs: Vital Signs - 24 hr 07/03/25 12:00 07/03/25 14:00 07/03/25 16:00 Temperature 36.7 C Pulse Rate 69 92 66 Respiratory Rate 12 Blood Pressure 123/54 L Pulse Oximetry 97 Oxygen Delivery 07/03/25 19:43 07/03/25 20:00 07/03/25 20:00 Temperature 36.8 C Pulse Rate 61 59 L Respiratory Rate 17 Blood Pressure 118/51 L Pulse Oximetry 100 Oxygen Delivery Room Air 07/04/25 00:00 07/04/25 04:00 07/04/25 04:33 Temperature 36.4 C Pulse Rate 58 L 54 L 58 L Respiratory Rate 16 Blood Pressure 135/53 L Pulse Oximetry 100 Oxygen Delivery 07/04/25 08:00 07/04/25 08:00 Temperature Pulse Rate 63 Respiratory Rate Blood Pressure Pulse Oximetry Oxygen Delivery Room Air Intake/Output Intake/Output: Intake & Output 07/01/25 07/02/25 07/03/25 07/04/25 23:59 23:59 23:59 22:59 Intake Total 880 930 938 50 Output Total 1000 Balance 880 -70 938 50 Meds/Results Medications: Active Medications Generic Name Dose Route Start Last Admin Trade Name Freq PRN Reason Stop Dose Admin Acetaminophen 650 mg 06/29/25 11:38 Acetaminophen 325 Mg Tablet PO Q6H PRN Mild Pain (1-3) or Fever Atorvastatin Calcium 40 mg 06/27/25 21:00 07/03/25 22:04 Atorvastatin 40 Mg Tablet PO 40 mg HS SALVADOR Administration Dextrose 12.5 gm 06/27/25 09:51 Dextrose 50% 25 Gm/50 Ml Syringe IV PUSH PRN PRN Hypoglycemia Protocol Ferrous Sulfate 325 mg 06/28/25 09:00 07/04/25 08:03 Ferrous Sulfate 325 Mg Tablet BY MOUTH 325 mg DAILY SALVADOR Administration Folic Acid 1 mg 06/28/25 09:00 07/04/25 08:03 Folic Acid 1 Mg Tablet PO 1 mg DAILY SALVADOR Administration Gabapentin 200 mg 06/27/25 21:00 07/03/25 22:04 Gabapentin 100 Mg Capsule PO 200 mg HS SALVADOR Administration Glucagon 1 mg 06/27/25 09:51 Glucagon For Inj 1 Mg Vial IM PRN PRN Hypoglycemia Protocol Glucose 15 gm 06/27/25 09:51 Glucose Oral Gel 15 Gm Of Glucse In 37.5 Gm Tube PO PRN PRN Hypoglycemia Protocol Heparin Sodium (Porcine) 5,000 units 06/26/25 21:00 07/04/25 08:04 Heparin Sodium 5,000 Units/Ml Vial SUB-Q 5,000 units Q12HR SALVADOR Administration Dextrose 1,000 mls @ 100 mls/hr 06/27/25 09:51 Dextrose 5% 1,000 Ml IVPB PRN PRN Hypoglycemia Protocol Albumin Human 50 mls @ 999 mls/hr 06/27/25 23:00 Albutein IVPB 07/27/25 22:59 Q10M PRN HYPOTENSION Cefepime HCl 2 gm/ Sodium 50 mls @ 100 mls/hr 06/30/25 18:00 07/02/25 23:02 Chloride IVPB Infused MOWEFR SALVADOR Infusion Ibuprofen 400 mg 06/29/25 11:38 Ibuprofen 400 Mg Tablet PO Q6H PRN Pain Rated 4-6 Insulin Aspart 2 - 5 units 07/02/25 08:00 07/04/25 08:03 Insulin Aspart (*Bkc) 100 Units/Ml SUB-Q Not Given WMHS SALVADOR Protocol Lidocaine/Prilocaine 1 each 06/28/25 06:10 Lidocaine/Prilocaine Cream 2.5-2.5% Tube TOPICAL WITH DIALYSIS PRN for dialysis Protocol Metronidazole 500 mg 06/30/25 14:00 07/04/25 06:02 Metronidazole 500 Mg Tablet PO 500 mg Q8HR SALVADOR Administration Midodrine 10 mg 06/27/25 13:00 07/04/25 08:03 Midodrine Hcl 10 Mg Tablet PO 10 mg TID SALVADOR Administration Mirtazapine 15 mg 06/27/25 21:00 07/03/25 22:07 Mirtazapine 15 Mg Tablet PO 15 mg HS SALVADOR Administration Mirtazapine 7.5 mg 06/27/25 21:00 07/03/25 22:07 Mirtazapine 7.5 Mg Tablet PO 7.5 mg HS SALVADOR Administration Pantoprazole Sodium 40 mg 06/26/25 21:00 07/04/25 08:03 Pantoprazole Sodium Iv 40 Mg Vial IV PUSH 40 mg Q12HR SALVADOR Administration Senna/Docusate Sodium 1 tab 06/27/25 09:01 Senna/Docusate Sodium Tablet PO BID PRN Constipation Sertraline HCl 50 mg 06/28/25 09:00 07/04/25 08:03 Sertraline Hcl 50 Mg Tablet PO 50 mg QAM SALVADOR Administration Sevelamer Carbonate 800 mg 06/27/25 17:00 07/03/25 16:49 Sevelamer Carbonate 800 Mg Tablet PO 800 mg On Hold: 07/04/25 08:13 DAILY@1700 SALVADOR Administration Sodium Chloride 20 ml 06/26/25 11:46 Central Line Flush IV PUSH PRN PRN after blood draws Sodium Hypochlorite 1 applic 06/27/25 21:00 07/03/25 22:08 Sod Hypochlorite 1/4 Strength 473 Ml TOPICAL 1 applic Q12HR SALVADOR Administration Zinc Sulfate 220 mg 06/28/25 09:00 07/04/25 08:03 Zinc Sulfate 220 Mg Capsule PO 220 mg QAM SALVADOR Administration Radiology Results: ITS Impressions Abdomen/Pelvis CT 06/26/25 07:59 IMPRESSION: 1. Decubitus wounds. 2. No evidence of osteomyelitis. 3. No evidence of associated abscess. 4. No acute abnormality within abdomen or pelvis. Chest X-Ray 06/28/25 08:20 Impression: CHF. Superimposed left lower lobe pneumonia suspected. The findings are progressed Labs Labs: Laboratory Results - last 24 hr 07/03/25 07/03/25 07/03/25 11:11 16:05 19:41 WBC RBC Hgb Hct MCV MCH MCHC RDW Plt Count MPV % Immature Plt Fraction Sodium Potassium Chloride Carbon Dioxide Anion Gap BUN Creatinine Estim Creat Clear Calc Estimated GFR Glucose POC Capillary Glucose 146 H 221 H 200 H Calcium Phosphorus Magnesium Albumin 07/04/25 07/04/25 04:30 07:33 WBC 8.3 RBC 3.95 L Hgb 12.1 L Hct 40.5 L MCV 102.5 H MCH 30.6 MCHC 29.9 L RDW 19.9 H Plt Count 121 L MPV 12.6 H % Immature Plt Fraction 6.7 Sodium 141 Potassium 3.6 Chloride 103 Carbon Dioxide 29 Anion Gap 9 BUN 32 H D Creatinine 4.08 H Estim Creat Clear Calc Not Reportable Estimated GFR 15 L Glucose 168 H POC Capillary Glucose 140 H Calcium 8.7 Phosphorus 1.7 L Magnesium 2.4 H Albumin 3.5 Quality VTE Prophylaxis VTE prophylaxis: pharmacologic ordered
--- NOTE | 2025-07-04 10:51 | P.PNNP_ITS ---
Progress Note: A&P Assessment and Plan (1) ESRD (end stage renal disease): Code(s): N18.6 - End stage renal disease Status: Chronic Assessment and Plan: * HD tomorrow * continue M/W/F schedule while hospitalized * follow electrolytes, volume status, and clearance (2) Hypotension: Code(s): I95.9 - Hypotension, unspecified Status: Acute Assessment and Plan: * some degree of chronicity with regard to this issue * on midodrine as an outpatient * suspect acute worsening due to infection (sacral decubitus ulcer + pneumonia) * associated with fever, leukocytosis, altered mental status and shortness of breath on admission * initially on vasopressor therapy but has since been weaned off * resumed on midodrine therapy (3) Decubitus ulcer: Code(s): L89.90 - Pressure ulcer of unspecified site, unspecified stage Status: Acute Assessment and Plan: * significant amount of drainage noted in association with sloughing necrotic tissue * General Surgery following * s/p debridement (down to bone) on 06/28 * on antibiotics * local wound care (wound care following) * continue supportive therapy (4) Bacteremia: Code(s): R78.81 - Bacteremia Status: Acute Assessment and Plan: * blood cultures noted: * from 06/26 - Clostridium perfringens & Eggerthella(Eubacterium) lenta * from 06/29 - no growth to date * Infectious Disease following * on antibiotics * continue current therapy (5) Fluid overload: Qualifiers: Hypervolemia type: other Qualified Code(s): E87.79 - Other fluid overload Code(s): E87.70 - Fluid overload, unspecified Status: Acute Assessment and Plan: * improvement noted * as noted by imaging on presentation * likely etiology of shortness of breath on admission * fluid removal as tolerated by hemodynamics * extra session of HD on 06/26 (in ICU) * continue fluid removal as tolerated by hemodynamics * suspect outpatient dry weight needs adjustment * follow respiratory status (6) Pneumonia: Qualifiers: Laterality: left Lung location: unspecified part of lung Pneumonia type: due to unspecified organism Qualified Code(s): J18.9 - Pneumonia, unspecified organism Code(s): J18.9 - Pneumonia, unspecified organism Status: Acute Assessment and Plan: * as suggested by admission imaging * follow culture data * on antibiotics (7) Anemia: Code(s): D64.9 - Anemia, unspecified Status: Chronic Assessment and Plan: * due to ESRD and possibly worsened by acute illness * Epogen with HD * follow trend of H/H (8) Diabetes mellitus with multiple complications: Code(s): E11.8 - Type 2 diabetes mellitus with unspecified complications Status: Chronic Assessment and Plan: * follow Accu-Cheks * glycemic control per hospitalist Will continue to follow. L Subjective Date/time seen: 07/04/25 10:51 Interval history: Follow-up for end stage renal disease on hemodialysis. No apparent distress noted at this time; no issues/events overnight or earlier this morning; breathing/respiratory status seems stable at the time of my visit; no other acute complaints voiced. Exam 2 Narrative: General: WD/WN male in NAD Heart: normal S1 and S2; no rub Lungs: decreased at bases Abdomen: soft, nontender, nondistended, positive bowel sounds Extremities: no cyanosis or clubbing; trace edema; s/p bilateral BKAs Skin: warm and intact Objective Data Vital Signs Vital Signs: Vital Signs Temp Pulse Resp BP Pulse Ox O2 Del Method 07/04/25 08:00 63 07/04/25 08:00 Room Air 07/04/25 04:33 97.6 F 58 L 16 135/53 L 100 07/04/25 04:00 54 L 07/04/25 00:00 58 L 07/03/25 20:00 Room Air 07/03/25 20:00 59 L 07/03/25 19:43 98.3 F 61 17 118/51 L 100 Intake/Output Intake/Output: Intake & Output 07/01/25 07/02/25 07/03/25 07/04/25 23:59 23:59 23:59 22:59 Intake Total 880 930 938 390 Output Total 1000 Balance 880 -70 938 390 Meds/Results Medications: Active Medications Generic Name Dose Route Start Last Admin Trade Name Freq PRN Reason Stop Dose Admin Acetaminophen 650 mg 06/29/25 11:38 Acetaminophen 325 Mg Tablet PO Q6H PRN Mild Pain (1-3) or Fever Atorvastatin Calcium 40 mg 06/27/25 21:00 07/03/25 22:04 Atorvastatin 40 Mg Tablet PO 40 mg HS SALVADOR Administration Dextrose 12.5 gm 06/27/25 09:51 Dextrose 50% 25 Gm/50 Ml Syringe IV PUSH PRN PRN Hypoglycemia Protocol Ferrous Sulfate 325 mg 06/28/25 09:00 07/04/25 08:03 Ferrous Sulfate 325 Mg Tablet BY MOUTH 325 mg DAILY SALVADOR Administration Folic Acid 1 mg 06/28/25 09:00 07/04/25 08:03 Folic Acid 1 Mg Tablet PO 1 mg DAILY SALVADOR Administration Gabapentin 200 mg 06/27/25 21:00 07/03/25 22:04 Gabapentin 100 Mg Capsule PO 200 mg HS SALVADOR Administration Glucagon 1 mg 06/27/25 09:51 Glucagon For Inj 1 Mg Vial IM PRN PRN Hypoglycemia Protocol Glucose 15 gm 06/27/25 09:51 Glucose Oral Gel 15 Gm Of Glucse In 37.5 Gm Tube PO PRN PRN Hypoglycemia Protocol Heparin Sodium (Porcine) 5,000 units 06/26/25 21:00 07/04/25 08:04 Heparin Sodium 5,000 Units/Ml Vial SUB-Q 5,000 units Q12HR SALVADOR Administration Dextrose 1,000 mls @ 100 mls/hr 06/27/25 09:51 Dextrose 5% 1,000 Ml IVPB PRN PRN Hypoglycemia Protocol Albumin Human 50 mls @ 999 mls/hr 06/27/25 23:00 Albutein IVPB 07/27/25 22:59 Q10M PRN HYPOTENSION Cefepime HCl 2 gm/ Sodium 50 mls @ 100 mls/hr 06/30/25 18:00 07/02/25 23:02 Chloride IVPB Infused MOWEFR SAL[facility]ADOR Infusion Ibuprofen 400 mg 06/29/25 11:38 Ibuprofen 400 Mg Tablet PO Q6H PRN Pain Rated 4-6 Insulin Aspart 2 - 5 units 07/02/25 08:00 07/04/25 12:16 Insulin Aspart (*Bkc) 100 Units/Ml SUB-Q 2 units [facility]HS SALVADOR Administration Protocol Lidocaine/Prilocaine 1 each 06/28/25 06:10 Lidocaine/Prilocaine Cream 2.5-2.5% Tube TOPICAL WITH DIALYSIS PRN for dialysis Protocol Metronidazole 500 mg 06/30/25 14:00 07/04/25 14:59 Metronidazole 500 Mg Tablet PO 500 mg Q8HR SAL[facility]ADOR Administration Midodrine 10 mg 06/27/25 13:00 07/04/25 12:14 Midodrine Hcl 10 Mg Tablet PO 10 mg TID SAL[facility]ADOR Administration Mirtazapine 15 mg 06/27/25 21:00 07/03/25 22:07 Mirtazapine 15 Mg Tablet PO 15 mg HS SALVADOR Administration Mirtazapine 7.5 mg 06/27/25 21:00 07/03/25 22:07 Mirtazapine 7.5 Mg Tablet PO 7.5 mg HS SALVADOR Administration Pantoprazole Sodium 40 mg 06/26/25 21:00 07/04/25 08:03 Pantoprazole Sodium Iv 40 Mg Vial IV PUSH 40 mg Q12HR SAL[facility]ADOR Administration Senna/Docusate Sodium 1 tab 06/27/25 09:01 Senna/Docusate Sodium Tablet PO BID PRN Constipation Sertraline HCl 50 mg 06/28/25 09:00 07/04/25 08:03 Sertraline Hcl 50 Mg Tablet PO 50 mg QAM SAL[facility]ADOR Administration Sevelamer Carbonate 800 mg 06/27/25 17:00 07/03/25 16:49 Sevelamer Carbonate 800 Mg Tablet PO 800 mg On Hold: 07/04/25 08:13 DAILY@1700 SAL[facility]ADOR Administration Sodium Chloride 20 ml 06/26/25 11:46 Central Line Flush IV PUSH PRN PRN after blood draws Sodium Hypochlorite 1 applic 06/27/25 21:00 07/04/25 14:59 Sod Hypochlorite 1/4 Strength 473 Ml TOPICAL 1 applic Q12HR SALVADOR Administration Zinc Sulfate 220 mg 06/28/25 09:00 07/04/25 08:03 Zinc Sulfate 220 Mg Capsule PO 220 mg QAM SALVADOR Administration Radiology Results: ITS Impressions Abdomen/Pelvis CT 06/26/25 07:59 IMPRESSION: 1. Decubitus wounds. 2. No evidence of osteomyelitis. 3. No evidence of associated abscess. 4. No acute abnormality within abdomen or pelvis. Chest X-Ray 06/28/25 08:20 Impression: CHF. Superimposed left lower lobe pneumonia suspected. The findings are progressed Labs Labs: Laboratory Tests 07/04/25 04:30 07/04/25 04:30 Calcium 8.7 Phosphorus 1.7 L Magnesium 2.4 H Albumin 3.5
[2025-07-04] MEDS: POTASSIUM/PHOSPHORUS/SODIUM 1.5 GM PACKET 2 PACKET PO (12:14)
[2025-07-04] MEDS: INSULIN ASPART (*BKC) 100 UNITS/ML SUB-Q ×3 (12:16→19:59)
[2025-07-04] MEDS: SOD HYPOCHLORITE 1/4 STRENGTH 473 ML 1 APPLIC TOPICAL ×2 (14:59→21:55)
[2025-07-04 15:54] LABS: Toxigenic C. Diff NEGATIVE (NEGATIVE)
[2025-07-04] MEDS: MIRTAZAPINE 7.5 MG TABLET PO (20:04)
[2025-07-04] MEDS: GABAPENTIN 100 MG CAPSULE 200 MG PO (20:04)
[2025-07-04] MEDS: ATORVASTATIN 40 MG TABLET PO (20:04)
[2025-07-04] MEDS: MIRTAZAPINE 15 MG TABLET PO (20:09)
[2025-07-05] VITALS (24 sets, daily range): BP systolic 93–180; BP diastolic 48–64; PULSE 60–75; RESP 16; TEMP 36.3–36.8; O2SAT 93–99
[2025-07-05 05:05] LABS: Hematocrit 39.0 % (42.0-52.0); Hemoglobin 11.9 g/dL (14.0-18.0); Mean Corpuscular HGB Conc 30.5 g/dl (32-36); Mean Corpuscular Hemoglobin 30.8 pg (26-34); Mean Corpuscular Volume 101.0 fl (80-100); Platelet Count Result 130 k/mm3 (150-375); Red Blood Count 3.86 M/mm3 (4.6-6.20); White Blood Count 9.6 K/mm3 (4.5-10.0)
[2025-07-05 05:40] LABS: Albumin Level 3.3 g/dL (3.5-5.1); Anion Gap 12 mmol/L (4-12); Blood Urea Nitrogen 46 mg/dL (9-20); Calcium 8.5 mg/dL (8.4-10.2); Carbon Dioxide 26 mmol/L (22-30); Chloride 103 mmol/L (98-107); Estimated Glomerular Filt Rate 12; Glucose 133 mg/dL (65-110); Magnesium 2.5 mg/dL (1.6-2.3); Potassium 4.1 mmol/L (3.4-5.0); Sodium 141 mmol/L (137-145)
[2025-07-05] MEDS: SERTRALINE HCL 50 MG TABLET PO (09:16)
[2025-07-05] MEDS: ZINC SULFATE 220 MG CAPSULE PO (09:16)
[2025-07-05] MEDS: MIDODRINE HCL 10 MG TABLET PO ×3 (09:16→17:34)
[2025-07-05] MEDS: SOD HYPOCHLORITE 1/4 STRENGTH 473 ML 1 APPLIC TOPICAL ×2 (09:16→21:38)
[2025-07-05] MEDS: FERROUS SULFATE 325 MG TABLET BY MOUTH (09:16)
[2025-07-05] MEDS: FOLIC ACID 1 MG TABLET PO (09:16)
[2025-07-05] MEDS: PANTOPRAZOLE SODIUM IV 40 MG VIAL IV PUSH ×2 (09:18→20:24)
[2025-07-05] MEDS: ALBUMIN HUMAN 25% 12.5 GM/50ML 50 ML IVPB ×2 (09:52→11:14)
--- NOTE | 2025-07-05 10:25 | P.PNNP_ITS ---
Progress Note: A&P Assessment and Plan (1) ESRD (end stage renal disease): Code(s): N18.6 - End stage renal disease Status: Chronic Assessment and Plan: * HD today * continue M/W/F schedule while hospitalized * follow electrolytes, volume status, and clearance (2) Hypotension: Code(s): I95.9 - Hypotension, unspecified Status: Acute Assessment and Plan: * some degree of chronicity with regard to this issue * on midodrine as an outpatient * suspect acute worsening due to infection (sacral decubitus ulcer + pneumonia) * associated with fever, leukocytosis, altered mental status and shortness of breath on admission * initially on vasopressor therapy but has since been weaned off * resumed on midodrine therapy (3) Decubitus ulcer: Code(s): L89.90 - Pressure ulcer of unspecified site, unspecified stage Status: Acute Assessment and Plan: * significant amount of drainage noted in association with sloughing necrotic tissue * General Surgery following * s/p debridement (down to bone) on 06/28 * on antibiotics * local wound care (wound care following) * continue supportive therapy (4) Bacteremia: Code(s): R78.81 - Bacteremia Status: Acute Assessment and Plan: * blood cultures noted: * from 06/26 - Clostridium perfringens & Eggerthella(Eubacterium) lenta * from 06/29 - no growth to date * Infectious Disease following * on antibiotics * continue current therapy (5) Fluid overload: Qualifiers: Hypervolemia type: other Qualified Code(s): E87.79 - Other fluid overload Code(s): E87.70 - Fluid overload, unspecified Status: Acute Assessment and Plan: * improvement noted * as noted by imaging on presentation * likely etiology of shortness of breath on admission * fluid removal as tolerated by hemodynamics * extra session of HD on 06/26 (in ICU) * continue fluid removal as tolerated by hemodynamics * suspect outpatient dry weight needs adjustment * follow respiratory status (6) Pneumonia: Qualifiers: Laterality: left Lung location: unspecified part of lung Pneumonia type: due to unspecified organism Qualified Code(s): J18.9 - Pneumonia, unspecified organism Code(s): J18.9 - Pneumonia, unspecified organism Status: Acute Assessment and Plan: * as suggested by admission imaging * follow culture data * on antibiotics (7) Anemia: Code(s): D64.9 - Anemia, unspecified Status: Chronic Assessment and Plan: * due to ESRD and possibly worsened by acute illness * Epogen with HD * follow trend of H/H (8) Diabetes mellitus with multiple complications: Code(s): E11.8 - Type 2 diabetes mellitus with unspecified complications Status: Chronic Assessment and Plan: * follow Accu-Cheks * glycemic control per hospitalist Will continue to follow. L Subjective Date/time seen: 07/05/25 10:25 Interval history: Follow-up for end stage renal disease on hemodialysis. Tolerating dialysis treatment at the time of my visit (seen on HD at 10:15am); relative hypotension noted but otherwise asymptomatic -- getting midodrine and IV albmunin for BP support; no issues/events overnight or earlier this morning Exam 2 Narrative: General: WD/WN male in NAD Heart: normal S1 and S2; no rub Lungs: decreased at bases Abdomen: soft, nontender, nondistended, positive bowel sounds Extremities: no cyanosis or clubbing; trace edema; s/p bilateral BKAs Skin: no rash Objective Data Vital Signs Vital Signs: Vital Signs Temp Pulse Resp BP Pulse Ox O2 Del Method 07/05/25 10:15 69 93/57 L 07/05/25 10:00 68 103/58 L 07/05/25 09:45 66 118/64 07/05/25 09:32 97.9 F 64 16 102/58 L 97 07/05/25 09:15 Room Air 07/05/25 08:00 66 07/05/25 04:33 97.6 F 65 16 116/60 99 07/05/25 04:00 60 07/05/25 00:00 66 07/04/25 20:04 96.9 F L 72 16 106/63 99 07/04/25 20:00 65 07/04/25 20:00 Room Air 07/04/25 16:00 64 07/04/25 14:00 94.7 F L 62 17 111/56 L 97 Intake/Output Intake/Output: Intake & Output 07/02/25 07/03/25 07/04/25 07/05/25 23:59 23:59 22:59 23:59 Intake Total 930 938 780 410 Output Total 1000 Balance -70 938 780 410 Meds/Results Medications: Active Medications Generic Name Dose Route Start Last Admin Trade Name Freq PRN Reason Stop Dose Admin Acetaminophen 650 mg 06/29/25 11:38 Acetaminophen 325 Mg Tablet PO Q6H PRN Mild Pain (1-3) or Fever Atorvastatin Calcium 40 mg 06/27/25 21:00 07/04/25 20:04 Atorvastatin 40 Mg Tablet PO 40 mg HS [facility] Administration Dextrose 12.5 gm 06/27/25 09:51 Dextrose 50% 25 Gm/50 Ml Syringe IV PUSH PRN PRN Hypoglycemia Protocol Ferrous Sulfate 325 mg 06/28/25 09:00 07/05/25 09:16 Ferrous Sulfate 325 Mg Tablet BY MOUTH 325 mg DAILY [facility] Administration Folic Acid 1 mg 06/28/25 09:00 07/05/25 09:16 Folic Acid 1 Mg Tablet PO 1 mg DAILY [facility] Administration Gabapentin 200 mg 06/27/25 21:00 07/04/25 20:04 Gabapentin 100 Mg Capsule PO 200 mg HS [facility] Administration Glucagon 1 mg 06/27/25 09:51 Glucagon For Inj 1 Mg Vial IM PRN PRN Hypoglycemia Protocol Glucose 15 gm 06/27/25 09:51 Glucose Oral Gel 15 Gm Of Glucse In 37.5 Gm Tube PO PRN PRN Hypoglycemia Protocol Heparin Sodium (Porcine) 5,000 units 06/26/25 21:00 07/05/25 09:17 Heparin Sodium 5,000 Units/Ml Vial SUB-Q 5,000 units Q12HR [facility] Administration Dextrose 1,000 mls @ 100 mls/hr 06/27/25 09:51 Dextrose 5% 1,000 Ml IVPB PRN PRN Hypoglycemia Protocol Albumin Human 50 mls @ 999 mls/hr 06/27/25 23:00 07/05/25 11:14 Albutein IVPB 07/27/25 22:59 100 mls/hr Q10M PRN Administration HYPOTENSION Cefepime HCl 2 gm/ Sodium 50 mls @ 100 mls/hr 06/30/25 18:00 07/02/25 23:02 Chloride IVPB Infused MOWEFR [facility] Infusion Ibuprofen 400 mg 06/29/25 11:38 Ibuprofen 400 Mg Tablet PO Q6H PRN Pain Rated 4-6 Insulin Aspart 2 - 5 units 07/02/25 08:00 07/05/25 09:15 Insulin Aspart (*Bkc) 100 Units/Ml SUB-Q Not Given [facility] Protocol Lidocaine/Prilocaine 1 each 06/28/25 06:10 Lidocaine/Prilocaine Cream 2.5-2.5% Tube TOPICAL WITH DIALYSIS PRN for dialysis Protocol Metronidazole 500 mg 06/30/25 14:00 07/05/25 05:08 Metronidazole 500 Mg Tablet PO 500 mg Q8HR [facility] Administration Midodrine 10 mg 06/27/25 13:00 07/05/25 09:16 Midodrine Hcl 10 Mg Tablet PO 10 mg TID [facility] Administration Mirtazapine 15 mg 06/27/25 21:00 07/04/25 20:09 Mirtazapine 15 Mg Tablet PO 15 mg HS [facility] Administration Mirtazapine 7.5 mg 06/27/25 21:00 07/04/25 20:04 Mirtazapine 7.5 Mg Tablet PO 7.5 mg HS [facility] Administration Pantoprazole Sodium 40 mg 06/26/25 21:00 07/05/25 09:18 Pantoprazole Sodium Iv 40 Mg Vial IV PUSH 40 mg Q12HR [facility] Administration Senna/Docusate Sodium 1 tab 06/27/25 09:01 Senna/Docusate Sodium Tablet PO BID PRN Constipation Sertraline HCl 50 mg 06/28/25 09:00 07/05/25 09:16 Sertraline Hcl 50 Mg Tablet PO 50 mg QAM [facility] Administration Sevelamer Carbonate 800 mg 06/27/25 17:00 07/03/25 16:49 Sevelamer Carbonate 800 Mg Tablet PO 800 mg On Hold: 07/04/25 08:13 DAILY@1700 [facility] Administration Sodium Chloride 20 ml 06/26/25 11:46 Central Line Flush IV PUSH PRN PRN after blood draws Sodium Hypochlorite 1 applic 06/27/25 21:00 07/05/25 09:16 Sod Hypochlorite 1/4 Strength 473 Ml TOPICAL 1 applic Q12HR [facility] Administration Zinc Sulfate 220 mg 06/28/25 09:00 07/05/25 09:16 Zinc Sulfate 220 Mg Capsule PO 220 mg QAM [facility] Administration Radiology Results: ITS Impressions Abdomen/Pelvis CT 06/26/25 07:59 IMPRESSION: 1. Decubitus wounds. 2. No evidence of osteomyelitis. 3. No evidence of associated abscess. 4. No acute abnormality within abdomen or pelvis. Chest X-Ray 06/28/25 08:20 Impression: CHF. Superimposed left lower lobe pneumonia suspected. The findings are progressed Labs Labs: Laboratory Tests 07/05/25 04:14 07/05/25 04:14 Calcium 8.5 Phosphorus 2.4 L Magnesium 2.5 H Albumin 3.3 L
--- NOTE | 2025-07-05 12:20 | PCNFU ---
Nutrition Follow-Up Complete: Severe protein calorie malnutrition related to loss of appetite, increased protein energy needs from wounds, as evidenced by intakes <75% needs >1 month; weight loss 18%/2 months; severe muscle wasting and fat loss. Intakes >50% meals and supplements - Improving with progress with goal. Continue same goal Goal: Pt current nutrition is renal diet, Nepro BID (420 kcal, 19 g pro) and Malik BID for wounds (90 kcal, 2.5 g protein, +arginine and glutamine). Nutrition recommendation: No new recommendations. Continue with current nutrition care plan and orders. Last recorded weight is 71 kg. Bowel Motility: +3 07/04 Labs Reviewed: Hgb 11.9, Hct 39, Alb 3.3, BUN 46, Cre 4.5, Glu 133 Meds Noted: Protonix, folic acid, remeron, novolog, senna Skin: Stage 4 sacrum Additional Notes: intakes 50-100%, 100% breakfast. Improving. Continue current nutrition care plan and orders. Agree with orders. Monitoring skin, weights, intakes, labs, output, plan of care Follow up in 3 days
--- NOTE | 2025-07-05 13:12 | PM.IMPN ---
Progress Note: A&P Assessment and Plan (1) Shock: Code(s): R57.9 - Shock, unspecified Status: Acute (2) Pulmonary edema: Qualifiers: Chronicity: acute Qualified Code(s): J81.0 - Acute pulmonary edema Code(s): J81.1 - Chronic pulmonary edema Status: Acute (3) Pneumonia: Qualifiers: Laterality: left Lung location: unspecified part of lung Pneumonia type: due to unspecified organism Qualified Code(s): J18.9 - Pneumonia, unspecified organism Code(s): J18.9 - Pneumonia, unspecified organism Status: Acute (4) Decubitus ulcer: Code(s): L89.90 - Pressure ulcer of unspecified site, unspecified stage Status: Acute (5) ESRD (end stage renal disease) on dialysis: Code(s): N18.6 - End stage renal disease; Z99.2 - Dependence on renal dialysis Status: Acute (6) Type 2 diabetes mellitus: Qualifiers: Diabetes mellitus nursing home insulin use: without nursing home use Diabetes mellitus complication status: with kidney complications Diabetes mellitus complication detail: with chronic kidney disease Chronic kidney disease stage: on chronic dialysis Qualified Code(s): E11.22 - Type 2 diabetes mellitus with diabetic chronic kidney disease; N18.6 - End stage renal disease; Z99.2 - Dependence on renal dialysis Code(s): E11.9 - Type 2 diabetes mellitus without complications Status: Chronic (7) Anemia of chronic disease: Code(s): D63.8 - Anemia in other chronic diseases classified elsewhere Status: Chronic Plan 60 y/o M with PMH of iron deficiency anemia/anemia of chronic disease, pAFib, coronary artery disease s/p multiple stents and CABG, diabetes, ESRD on HD, CHF, and RISA not on CPAP presented here with altered mental status and fever. Patient was diagnosed with septic shock resulting in altered mental status, likely secondary to sacral wound. Patient was admitted to ICU initially. General surgery was consulted. Was started on cefepime, doxycycline, Flagyl. Status post debridement of the sacral wound. Blood culture grew Clostridium, Eubacterium. ID was consulted as well 1. Septic shock: Secondary toe sacral decubitus ulcer, pneumonia Patient was started on broad-spectrum antibiotic including cefepime, vancomycin, doxycycline, Flagyl Required pressor support with norepinephrine, has been weaned out Has been moved out of ICU ID following Blood culture grew Clostridium, eubacterium Currently on cefepime, Flagyl Likely plan for 4 weeks of IV antibiotic, await final recommendations from ID No need for PICC line as cefepime can be given with dialysis Status post debridement of sacral decubitus ulcer by surgery (2) Pulmonary edema: Pulmonary edema seen on CXR. Patient has history of combined systolic/diastolic CHF. Fluid balance managed via dialysis that he receives Mondays, Wednesdays, Fridays. Has not missed any treatments and has been able to receive his full treatments. (3) ESRD (end stage renal disease) on dialysis: Nephrology following Dialysis as blood renal plan Monitor electrolytes Monitor blood pressure (4) Type 2 diabetes mellitus: History of type 2 diabetes complicated by ESRD, bilateral BKA, and diabetic neuropathy. Blood glucose checked t.i.d. a.c. and HS Continue with sliding scale insulin Hypoglycemia protocol in place (5) Anemia of chronic disease: Monitor H&H Transfuse for hemoglobin less than 7 6. Code status: DNR 7. DVT prophylaxis: Heparin subQ 8. Disposition: Pending placement Time Spent With Patient Time: 39 minutes Subjective Date/time seen: 07/05/25 13:12 Interval history: No acute events overnight Review of Systems Review of Systems: All systems reviewed & are unremarkable except as noted in HPI and below Exam Narrative: Patient is comfortable, NAD HEENT: eyes are clear and none icteric LUNGS:CTA HEART: RR S1S2 ABD: BS+, Soft and nontender Lower extremities: no edema SKIN: nonjaundiced Neuro: grossly intact. Objective Data Vital Signs Vital Signs: Vital Signs - 24 hr 07/04/25 14:00 07/04/25 16:00 07/04/25 20:00 Temperature 94.7 F L Pulse Rate 62 64 Respiratory Rate 17 Blood Pressure 111/56 L Pulse Oximetry 97 Oxygen Delivery Room Air 07/04/25 20:00 07/04/25 20:04 07/05/25 00:00 Temperature 96.9 F L Pulse Rate 65 72 66 Respiratory Rate 16 Blood Pressure 106/63 Pulse Oximetry 99 Oxygen Delivery 07/05/25 04:00 07/05/25 04:33 07/05/25 08:00 Temperature 97.6 F Pulse Rate 60 65 66 Respiratory Rate 16 Blood Pressure 116/60 Pulse Oximetry 99 Oxygen Delivery 07/05/25 09:15 07/05/25 09:32 07/05/25 09:45 Temperature 97.9 F Pulse Rate 64 66 Respiratory Rate 16 Blood Pressure 102/58 L 118/64 Pulse Oximetry 97 Oxygen Delivery Room Air 07/05/25 10:00 07/05/25 10:15 07/05/25 10:30 Temperature Pulse Rate 68 69 68 Respiratory Rate Blood Pressure 103/58 L 93/57 L 93/58 L Pulse Oximetry Oxygen Delivery 07/05/25 10:45 07/05/25 11:00 07/05/25 11:15 Temperature Pulse Rate 61 69 68 Respiratory Rate Blood Pressure 105/54 L 105/61 105/57 L Pulse Oximetry Oxygen Delivery 07/05/25 11:30 07/05/25 11:47 07/05/25 12:00 Temperature Pulse Rate 67 69 71 Respiratory Rate Blood Pressure 100/57 L 180/56 H 107/59 L Pulse Oximetry Oxygen Delivery 07/05/25 12:00 07/05/25 12:15 07/05/25 12:30 Temperature Pulse Rate 71 73 73 Respiratory Rate Blood Pressure 107/59 L 99/59 L Pulse Oximetry Oxygen Delivery 07/05/25 12:45 Temperature Pulse Rate 74 Respiratory Rate Blood Pressure 101/58 L Pulse Oximetry Oxygen Delivery Intake/Output Intake/Output: Intake & Output 07/02/25 07/03/25 07/04/25 07/05/25 23:59 23:59 22:59 23:59 Intake Total 930 938 780 410 Output Total 1000 Balance -70 938 780 410 Meds/Results Medications: Active Medications Generic Name Dose Route Start Last Admin Trade Name Freq PRN Reason Stop Dose Admin Acetaminophen 650 mg 06/29/25 11:38 Acetaminophen 325 Mg Tablet PO Q6H PRN Mild Pain (1-3) or Fever Atorvastatin Calcium 40 mg 06/27/25 21:00 07/04/25 20:04 Atorvastatin 40 Mg Tablet PO 40 mg HS [facility] Administration Dextrose 12.5 gm 06/27/25 09:51 Dextrose 50% 25 Gm/50 Ml Syringe IV PUSH PRN PRN Hypoglycemia Protocol Ferrous Sulfate 325 mg 06/28/25 09:00 07/05/25 09:16 Ferrous Sulfate 325 Mg Tablet BY MOUTH 325 mg DAILY [facility] Administration Folic Acid 1 mg 06/28/25 09:00 07/05/25 09:16 Folic Acid 1 Mg Tablet PO 1 mg DAILY [facility] Administration Gabapentin 200 mg 06/27/25 21:00 07/04/25 20:04 Gabapentin 100 Mg Capsule PO 200 mg HS [facility] Administration Glucagon 1 mg 06/27/25 09:51 Glucagon For Inj 1 Mg Vial IM PRN PRN Hypoglycemia Protocol Glucose 15 gm 06/27/25 09:51 Glucose Oral Gel 15 Gm Of Glucse In 37.5 Gm Tube PO PRN PRN Hypoglycemia Protocol Heparin Sodium (Porcine) 5,000 units 06/26/25 21:00 07/05/25 09:17 Heparin Sodium 5,000 Units/Ml Vial SUB-Q 5,000 units Q12HR [facility] Administration Dextrose 1,000 mls @ 100 mls/hr 06/27/25 09:51 Dextrose 5% 1,000 Ml IVPB PRN PRN Hypoglycemia Protocol Albumin Human 50 mls @ 999 mls/hr 06/27/25 23:00 07/05/25 11:14 Albutein IVPB 07/27/25 22:59 100 mls/hr Q10M PRN Administration HYPOTENSION Cefepime HCl 2 gm/ Sodium 50 mls @ 100 mls/hr 06/30/25 18:00 07/02/25 23:02 Chloride IVPB Infused MOWEFR [facility] Infusion Ibuprofen 400 mg 06/29/25 11:38 Ibuprofen 400 Mg Tablet PO Q6H PRN Pain Rated 4-6 Insulin Aspart 2 - 5 units 07/02/25 08:00 07/05/25 09:15 Insulin Aspart (*Bkc) 100 Units/Ml SUB-Q Not Given [facility] Protocol Lidocaine/Prilocaine 1 each 06/28/25 06:10 Lidocaine/Prilocaine Cream 2.5-2.5% Tube TOPICAL WITH DIALYSIS PRN for dialysis Protocol Metronidazole 500 mg 06/30/25 14:00 07/05/25 05:08 Metronidazole 500 Mg Tablet PO 500 mg Q8HR [facility] Administration Midodrine 10 mg 06/27/25 13:00 07/05/25 09:16 Midodrine Hcl 10 Mg Tablet PO 10 mg TID [facility] Administration Mirtazapine 15 mg 06/27/25 21:00 07/04/25 20:09 Mirtazapine 15 Mg Tablet PO 15 mg HS [facility] Administration Mirtazapine 7.5 mg 06/27/25 21:00 07/04/25 20:04 Mirtazapine 7.5 Mg Tablet PO 7.5 mg HS [facility] Administration Pantoprazole Sodium 40 mg 06/26/25 21:00 07/05/25 09:18 Pantoprazole Sodium Iv 40 Mg Vial IV PUSH 40 mg Q12HR [facility] Administration Senna/Docusate Sodium 1 tab 06/27/25 09:01 Senna/Docusate Sodium Tablet PO BID PRN Constipation Sertraline HCl 50 mg 06/28/25 09:00 07/05/25 09:16 Sertraline Hcl 50 Mg Tablet PO 50 mg QAM [facility] Administration Sevelamer Carbonate 800 mg 06/27/25 17:00 07/03/25 16:49 Sevelamer Carbonate 800 Mg Tablet PO 800 mg On Hold: 07/04/25 08:13 DAILY@1700 [facility] Administration Sodium Chloride 20 ml 06/26/25 11:46 Central Line Flush IV PUSH PRN PRN after blood draws Sodium Hypochlorite 1 applic 06/27/25 21:00 07/05/25 09:16 Sod Hypochlorite 1/4 Strength 473 Ml TOPICAL 1 applic Q12HR [facility] Administration Zinc Sulfate 220 mg 06/28/25 09:00 07/05/25 09:16 Zinc Sulfate 220 Mg Capsule PO 220 mg QAM [facility] Administration Radiology Results: ITS Impressions Abdomen/Pelvis CT 06/26/25 07:59 IMPRESSION: 1. Decubitus wounds. 2. No evidence of osteomyelitis. 3. No evidence of associated abscess. 4. No acute abnormality within abdomen or pelvis. Chest X-Ray 06/28/25 08:20 Impression: CHF. Superimposed left lower lobe pneumonia suspected. The findings are progressed Labs Labs: Laboratory Results - last 24 hr 07/04/25 07/04/25 07/04/25 15:01 16:48 19:57 WBC RBC Hgb Hct MCV MCH MCHC RDW Plt Count MPV Sodium Potassium Chloride Carbon Dioxide Anion Gap BUN Creatinine Estim Creat Clear Calc Estimated GFR Glucose POC Capillary Glucose 270 H 210 H Calcium Phosphorus Magnesium Albumin C. difficile (PCR) Negative 07/05/25 07/05/25 04:14 07:30 WBC 9.6 RBC 3.86 L Hgb 11.9 L Hct 39.0 L MCV 101.0 H MCH 30.8 MCHC 30.5 L RDW 20.7 H Plt Count 130 L MPV 11.9 H Sodium 141 Potassium 4.1 Chloride 103 Carbon Dioxide 26 Anion Gap 12 BUN 46 H D Creatinine 4.90 H Estim Creat Clear Calc Not Reportable Estimated GFR 12 L Glucose 133 H POC Capillary Glucose 130 H Calcium 8.5 Phosphorus 2.4 L Magnesium 2.5 H Albumin 3.3 L C. difficile (PCR) Quality VTE Prophylaxis VTE prophylaxis: pharmacologic ordered
[2025-07-05] MEDS: INSULIN ASPART (*BKC) 100 UNITS/ML SUB-Q ×2 (14:11→20:22)
--- NOTE | 2025-07-05 15:12 | P.PNINF_ITS ---
Progress Note: A&P Assessment and Plan (1) Decubitus ulcer: Qualifiers: Pressure injury location: sacral region Pressure injury stage: stage 4 Qualified Code(s): L89.154 - Pressure ulcer of sacral region, stage 4 Code(s): L89.90 - Pressure ulcer of unspecified site, unspecified stage Status: Acute (2) ESRD (end stage renal disease) on dialysis: Code(s): N18.6 - End stage renal disease; Z99.2 - Dependence on renal dialysis Status: Acute Assessment and Plan: ASSESSMENT: 1. sacral decubitis s/p I&D--wound down to bone; imaging neg for osteomyelitis 2. clostridium perfringers and Eggerthelia bacteremia--likely 2nd to #1 3. ESRD on HD via RUE AVF 4. DM 5. afib 6. CAD s/p CABG 7. heart failure 8. penicillin allergy-->unknown reaction 9. s/p bilateral BKAs RECOMMENDATIONS Continue cefepime and Flagyl for 4 week therapy. Anticipated end of therapy would be July 26, 2025 At discharge, cefepime can be given with dialysis on HD days, so no PICC line will be needed. d/w pharmacy staff Pt was seen via video telehealth consult with the assistance of staff. Chart, data, and patient interview independently reviewed by me. Pt was located at [facility] while I was in my [place] office. Pt gave verbal consent. Subjective Date/time seen: 07/05/25 15:12 Interval history: no fevers. mental status about the same as Saturday. awake. did have some nausea with HD today. Exam Narrative: Awake. oriented x 3 right AVF with bandaide/dressing x 2. no strike through No new rash. no accessory muscles for breathing. During telemedicine visit today, did not examine the sacral area Objective Data Vital Signs Vital Signs: Vital Signs - 24 hr 07/04/25 16:00 07/04/25 20:00 07/04/25 20:00 Temperature Pulse Rate 64 65 Respiratory Rate Blood Pressure Pulse Oximetry Oxygen Delivery Room Air 07/04/25 20:04 07/05/25 00:00 07/05/25 04:00 Temperature 36.1 C L Pulse Rate 72 66 60 Respiratory Rate 16 Blood Pressure 106/63 Pulse Oximetry 99 Oxygen Delivery 07/05/25 04:33 07/05/25 08:00 07/05/25 09:15 Temperature 36.4 C Pulse Rate 65 66 Respiratory Rate 16 Blood Pressure 116/60 Pulse Oximetry 99 Oxygen Delivery Room Air 07/05/25 09:32 07/05/25 09:45 07/05/25 10:00 Temperature 36.6 C Pulse Rate 64 66 68 Respiratory Rate 16 Blood Pressure 102/58 L 118/64 103/58 L Pulse Oximetry 97 Oxygen Delivery 07/05/25 10:15 07/05/25 10:30 07/05/25 10:45 Temperature Pulse Rate 69 68 61 Respiratory Rate Blood Pressure 93/57 L 93/58 L 105/54 L Pulse Oximetry Oxygen Delivery 07/05/25 11:00 07/05/25 11:15 07/05/25 11:30 Temperature Pulse Rate 69 68 67 Respiratory Rate Blood Pressure 105/61 105/57 L 100/57 L Pulse Oximetry Oxygen Delivery 07/05/25 11:47 07/05/25 12:00 07/05/25 12:00 Temperature Pulse Rate 69 71 71 Respiratory Rate Blood Pressure 180/56 H 107/59 L Pulse Oximetry Oxygen Delivery 07/05/25 12:15 07/05/25 12:30 07/05/25 12:45 Temperature Pulse Rate 73 73 74 Respiratory Rate Blood Pressure 107/59 L 99/59 L 101/58 L Pulse Oximetry Oxygen Delivery 07/05/25 13:00 07/05/25 13:15 07/05/25 13:30 Temperature 36.3 C L Pulse Rate 73 75 72 Respiratory Rate 16 Blood Pressure 99/57 L 98/59 L 118/60 Pulse Oximetry 97 Oxygen Delivery 07/05/25 14:00 Temperature 36.6 C Pulse Rate 71 Respiratory Rate 16 Blood Pressure 109/51 L Pulse Oximetry 93 Oxygen Delivery Intake/Output Intake/Output: Intake & Output 07/02/25 07/03/25 07/04/25 07/05/25 23:59 23:59 22:59 23:59 Intake Total 930 938 780 410 Output Total 1000 1000 Balance -70 938 780 -590 Meds/Results Medications: Active Medications Generic Name Dose Route Start Last Admin Trade Name Freq PRN Reason Stop Dose Admin Acetaminophen 650 mg 06/29/25 11:38 Acetaminophen 325 Mg Tablet PO Q6H PRN Mild Pain (1-3) or Fever Atorvastatin Calcium 40 mg 06/27/25 21:00 07/04/25 20:04 Atorvastatin 40 Mg Tablet PO 40 mg HS [facility] Administration Dextrose 12.5 gm 06/27/25 09:51 Dextrose 50% 25 Gm/50 Ml Syringe IV PUSH PRN PRN Hypoglycemia Protocol Ferrous Sulfate 325 mg 06/28/25 09:00 07/05/25 09:16 Ferrous Sulfate 325 Mg Tablet BY MOUTH 325 mg DAILY [facility] Administration Folic Acid 1 mg 06/28/25 09:00 07/05/25 09:16 Folic Acid 1 Mg Tablet PO 1 mg DAILY [facility] Administration Gabapentin 200 mg 06/27/25 21:00 07/04/25 20:04 Gabapentin 100 Mg Capsule PO 200 mg HS [facility] Administration Glucagon 1 mg 06/27/25 09:51 Glucagon For Inj 1 Mg Vial IM PRN PRN Hypoglycemia Protocol Glucose 15 gm 06/27/25 09:51 Glucose Oral Gel 15 Gm Of Glucse In 37.5 Gm Tube PO PRN PRN Hypoglycemia Protocol Heparin Sodium (Porcine) 5,000 units 06/26/25 21:00 07/05/25 09:17 Heparin Sodium 5,000 Units/Ml Vial SUB-Q 5,000 units Q12HR [facility] Administration Dextrose 1,000 mls @ 100 mls/hr 06/27/25 09:51 Dextrose 5% 1,000 Ml IVPB PRN PRN Hypoglycemia Protocol Albumin Human 50 mls @ 999 mls/hr 06/27/25 23:00 07/05/25 11:14 Albutein IVPB 07/27/25 22:59 100 mls/hr Q10M PRN Administration HYPOTENSION Cefepime HCl 2 gm/ Sodium 50 mls @ 100 mls/hr 06/30/25 18:00 07/02/25 23:02 Chloride IVPB 07/26/25 23:59 Infused MOWEFR [facility] Infusion Ibuprofen 400 mg 06/29/25 11:38 Ibuprofen 400 Mg Tablet PO Q6H PRN Pain Rated 4-6 Insulin Aspart 2 - 5 units 07/02/25 08:00 07/05/25 14:11 Insulin Aspart (*Bkc) 100 Units/Ml SUB-Q 2 units WMHS [facility] Administration Protocol Lidocaine/Prilocaine 1 each 06/28/25 06:10 Lidocaine/Prilocaine Cream 2.5-2.5% Tube TOPICAL WITH DIALYSIS PRN for dialysis Protocol Metronidazole 500 mg 06/30/25 14:00 07/05/25 14:01 Metronidazole 500 Mg Tablet PO 07/26/25 22:01 500 mg Q8HR [facility] Administration Midodrine 10 mg 06/27/25 13:00 07/05/25 14:01 Midodrine Hcl 10 Mg Tablet PO 10 mg TID [facility] Administration Mirtazapine 15 mg 06/27/25 21:00 07/04/25 20:09 Mirtazapine 15 Mg Tablet PO 15 mg HS SAL[facility]AD[facility] Administration Mirtazapine 7.5 mg 06/27/25 21:00 07/04/25 20:04 Mirtazapine 7.5 Mg Tablet PO 7.5 mg HS [facility] Administration Pantoprazole Sodium 40 mg 06/26/25 21:00 07/05/25 09:18 Pantoprazole Sodium Iv 40 Mg Vial IV PUSH 40 mg Q12HR [facility] Administration Senna/Docusate Sodium 1 tab 06/27/25 09:01 Senna/Docusate Sodium Tablet PO BID PRN Constipation Sertraline HCl 50 mg 06/28/25 09:00 07/05/25 09:16 Sertraline Hcl 50 Mg Tablet PO 50 mg QAM [facility] Administration Sevelamer Carbonate 800 mg 06/27/25 17:00 07/03/25 16:49 Sevelamer Carbonate 800 Mg Tablet PO 800 mg On Hold: 07/04/25 08:13 DAILY@1700 [facility] Administration Sodium Chloride 20 ml 06/26/25 11:46 Central Line Flush IV PUSH PRN PRN after blood draws Sodium Hypochlorite 1 applic 06/27/25 21:00 07/05/25 09:16 Sod Hypochlorite 1/4 Strength 473 Ml TOPICAL 1 applic Q12HR [facility] Administration Zinc Sulfate 220 mg 06/28/25 09:00 07/05/25 09:16 Zinc Sulfate 220 Mg Capsule PO 220 mg QAM [facility] Administration Radiology Results: ITS Impressions Abdomen/Pelvis CT 06/26/25 07:59 IMPRESSION: 1. Decubitus wounds. 2. No evidence of osteomyelitis. 3. No evidence of associated abscess. 4. No acute abnormality within abdomen or pelvis. Chest X-Ray 06/28/25 08:20 Impression: CHF. Superimposed left lower lobe pneumonia suspected. The findings are progressed Labs Labs: Laboratory Results - last 24 hr 07/04/25 07/04/25 07/04/25 15:01 16:48 19:57 WBC RBC Hgb Hct MCV MCH MCHC RDW Plt Count MPV Sodium Potassium Chloride Carbon Dioxide Anion Gap BUN Creatinine Estim Creat Clear Calc Estimated GFR Glucose POC Capillary Glucose 270 H 210 H Calcium Phosphorus Magnesium Albumin C. difficile (PCR) Negative 07/05/25 07/05/25 07/05/25 04:14 07:30 14:03 WBC 9.6 RBC 3.86 L Hgb 11.9 L Hct 39.0 L MCV 101.0 H MCH 30.8 MCHC 30.5 L RDW 20.7 H Plt Count 130 L MPV 11.9 H Sodium 141 Potassium 4.1 Chloride 103 Carbon Dioxide 26 Anion Gap 12 BUN 46 H D Creatinine 4.90 H Estim Creat Clear Calc Not Reportable Estimated GFR 12 L Glucose 133 H POC Capillary Glucose 130 H 220 H Calcium 8.5 Phosphorus 2.4 L Magnesium 2.5 H Albumin 3.3 L C. difficile (PCR)
[2025-07-05] MEDS: CEFEPIME 2 GM in SODIUM CHLORIDE 0.9% IV 50 ML 100 ML IVPB (17:34)
[2025-07-05] MEDS: MIRTAZAPINE 15 MG TABLET PO (20:24)
[2025-07-05] MEDS: MIRTAZAPINE 7.5 MG TABLET PO (20:24)
[2025-07-05] MEDS: ATORVASTATIN 40 MG TABLET PO (20:24)
[2025-07-05] MEDS: GABAPENTIN 100 MG CAPSULE 200 MG PO (20:24)
[2025-07-06] VITALS (10 sets, daily range): BP systolic 115–134; BP diastolic 50–62; PULSE 58–74; RESP 14–16; TEMP 36.2–36.6; O2SAT 98–100
[2025-07-06 04:49] LABS: Hematocrit 37.4 % (42.0-52.0); Hemoglobin 11.3 g/dL (14.0-18.0); Mean Corpuscular HGB Conc 30.2 g/dl (32-36); Mean Corpuscular Hemoglobin 31.0 pg (26-34); Mean Corpuscular Volume 102.7 fl (80-100); Platelet Count Result 124 k/mm3 (150-375); Red Blood Count 3.64 M/mm3 (4.6-6.20); White Blood Count 8.0 K/mm3 (4.5-10.0)
[2025-07-06 05:20] LABS: Albumin Level 3.5 g/dL (3.5-5.1); Anion Gap 9 mmol/L (4-12); Blood Urea Nitrogen 31 mg/dL (9-20); Calcium 8.5 mg/dL (8.4-10.2); Carbon Dioxide 27 mmol/L (22-30); Chloride 103 mmol/L (98-107); Estimated Glomerular Filt Rate 21; Glucose 174 mg/dL (65-110); Magnesium 2.2 mg/dL (1.6-2.3); Potassium 3.9 mmol/L (3.4-5.0); Sodium 139 mmol/L (137-145)
--- NOTE | 2025-07-06 07:48 | PM.IMPN ---
Progress Note: A&P Assessment and Plan (1) Shock: Code(s): R57.9 - Shock, unspecified Status: Acute (2) Pulmonary edema: Qualifiers: Chronicity: acute Qualified Code(s): J81.0 - Acute pulmonary edema Code(s): J81.1 - Chronic pulmonary edema Status: Acute (3) Pneumonia: Qualifiers: Laterality: left Lung location: unspecified part of lung Pneumonia type: due to unspecified organism Qualified Code(s): J18.9 - Pneumonia, unspecified organism Code(s): J18.9 - Pneumonia, unspecified organism Status: Acute (4) Decubitus ulcer: Code(s): L89.90 - Pressure ulcer of unspecified site, unspecified stage Status: Acute (5) ESRD (end stage renal disease) on dialysis: Code(s): N18.6 - End stage renal disease; Z99.2 - Dependence on renal dialysis Status: Acute (6) Type 2 diabetes mellitus: Qualifiers: Chronic kidney disease stage: on chronic dialysis Diabetes mellitus complication detail: with chronic kidney disease Diabetes mellitus complication status: with kidney complications Diabetes mellitus custodial insulin use: without custodial use Qualified Code(s): E11.22 - Type 2 diabetes mellitus with diabetic chronic kidney disease; N18.6 - End stage renal disease; Z99.2 - Dependence on renal dialysis Code(s): E11.9 - Type 2 diabetes mellitus without complications Status: Chronic (7) Anemia of chronic disease: Code(s): D63.8 - Anemia in other chronic diseases classified elsewhere Status: Chronic Plan 60 y/o M with PMH of iron deficiency anemia/anemia of chronic disease, pAFib, coronary artery disease s/p multiple stents and CABG, diabetes, ESRD on HD, CHF, and RISA not on CPAP presented here with altered mental status and fever. Patient was diagnosed with septic shock resulting in altered mental status, likely secondary to sacral wound. Patient was admitted to ICU initially. General surgery was consulted. Was started on cefepime, doxycycline, Flagyl. Status post debridement of the sacral wound. Blood culture grew Clostridium, Eubacterium. ID was consulted as well 1. Septic shock: Secondary toe sacral decubitus ulcer, LLL pneumonia Patient was started on broad-spectrum antibiotic including cefepime, vancomycin, doxycycline, Flagyl Required pressor support with norepinephrine, has been weaned out Has been moved out of ICU ID following, appreciate recs Blood culture grew Clostridium, and eggerthelia bacteremia will need 4 weeks of cefepime and flagyl, EOT 07/26 continue cefepime, and Flagyl No need for PICC line as cefepime can be given with dialysis Status post debridement of sacral decubitus ulcer by surgery (2) CHF: Pulmonary edema seen on CXR (06/28). Patient has history of combined systolic/diastolic CHF. Fluid balance managed via dialysis that he receives Mondays, Wednesdays, Fridays. Has not missed any treatments and has been able to receive his full treatments. (3) ESRD (end stage renal disease) on dialysis: Nephrology following Dialysis as blood renal plan Monitor electrolytes Monitor blood pressure (4) Type 2 diabetes mellitus: History of type 2 diabetes complicated by ESRD, bilateral BKA, and diabetic neuropathy. Blood glucose checked t.i.d. a.c. and HS Continue with sliding scale insulin Hypoglycemia protocol in place (5) Anemia of chronic disease: Monitor H&H Transfuse for hemoglobin less than 7 6. Code status: DNR 7. DVT prophylaxis: Heparin subQ 8. Disposition: Pending placement. CM working on this. Time Spent With Patient Time: 40 minutes Subjective Date/time seen: 07/06/25 07:48 Interval history: No acute event overnight. Patient did want to go to [place]. Waiting for a new correction. Exam Narrative: Patient is comfortable, NAD HEENT: eyes are clear and none icteric LUNGS:CTA HEART: RR S1S2 ABD: BS+, Soft and nontender Lower extremities: no edema SKIN: nonjaundiced Neuro: grossly intact. Objective Data Vital Signs Vital Signs: Vital Signs - 24 hr 07/05/25 08:00 07/05/25 09:15 07/05/25 09:32 Temperature 36.6 C Pulse Rate 66 64 Respiratory Rate 16 Blood Pressure 102/58 L Pulse Oximetry 97 Oxygen Delivery Room Air Fraction of Inspired Oxygen 07/05/25 09:45 07/05/25 10:00 07/05/25 10:15 Temperature Pulse Rate 66 68 69 Respiratory Rate Blood Pressure 118/64 103/58 L 93/57 L Pulse Oximetry Oxygen Delivery Fraction of Inspired Oxygen 07/05/25 10:30 07/05/25 10:45 07/05/25 11:00 Temperature Pulse Rate 68 61 69 Respiratory Rate Blood Pressure 93/58 L 105/54 L 105/61 Pulse Oximetry Oxygen Delivery Fraction of Inspired Oxygen 07/05/25 11:15 07/05/25 11:30 07/05/25 11:47 Temperature Pulse Rate 68 67 69 Respiratory Rate Blood Pressure 105/57 L 100/57 L 180/56 H Pulse Oximetry Oxygen Delivery Fraction of Inspired Oxygen 07/05/25 12:00 07/05/25 12:00 07/05/25 12:15 Temperature Pulse Rate 71 71 73 Respiratory Rate Blood Pressure 107/59 L 107/59 L Pulse Oximetry Oxygen Delivery Fraction of Inspired Oxygen 07/05/25 12:30 07/05/25 12:45 07/05/25 13:00 Temperature Pulse Rate 73 74 73 Respiratory Rate Blood Pressure 99/59 L 101/58 L 99/57 L Pulse Oximetry Oxygen Delivery Fraction of Inspired Oxygen 07/05/25 13:15 07/05/25 13:30 07/05/25 14:00 Temperature 36.3 C L 36.6 C Pulse Rate 75 72 71 Respiratory Rate 16 16 Blood Pressure 98/59 L 118/60 109/51 L Pulse Oximetry 97 93 Oxygen Delivery Fraction of Inspired Oxygen 07/05/25 16:00 07/05/25 20:00 07/05/25 20:00 Temperature 36.7 C Pulse Rate 68 61 61 Respiratory Rate 16 16 Blood Pressure 120/48 L Pulse Oximetry 97 97 Oxygen Delivery Room Air Fraction of Inspired Oxygen 21 07/05/25 20:00 07/06/25 00:00 07/06/25 04:00 Temperature Pulse Rate 66 62 58 L Respiratory Rate Blood Pressure Pulse Oximetry Oxygen Delivery Fraction of Inspired Oxygen 07/06/25 04:43 Temperature 36.4 C Pulse Rate 58 L Respiratory Rate 16 Blood Pressure 126/60 Pulse Oximetry 98 Oxygen Delivery Fraction of Inspired Oxygen Intake/Output Intake/Output: Intake & Output 07/03/25 07/04/25 07/05/25 07/06/25 23:59 22:59 23:59 23:59 Intake Total 938 780 850 200 Output Total 1000 Balance 938 780 -150 200 Meds/Results Medications: Active Medications Generic Name Dose Route Start Last Admin Trade Name Freq PRN Reason Stop Dose Admin Acetaminophen 650 mg 06/29/25 11:38 Acetaminophen 325 Mg Tablet PO Q6H PRN Mild Pain (1-3) or Fever Atorvastatin Calcium 40 mg 06/27/25 21:00 07/05/25 20:24 Atorvastatin 40 Mg Tablet PO 40 mg HS [facility] Administration Dextrose 12.5 gm 06/27/25 09:51 Dextrose 50% 25 Gm/50 Ml Syringe IV PUSH PRN PRN Hypoglycemia Protocol Ferrous Sulfate 325 mg 06/28/25 09:00 07/05/25 09:16 Ferrous Sulfate 325 Mg Tablet BY MOUTH 325 mg DAILY [facility] Administration Folic Acid 1 mg 06/28/25 09:00 07/05/25 09:16 Folic Acid 1 Mg Tablet PO 1 mg DAILY [facility] Administration Gabapentin 200 mg 06/27/25 21:00 07/05/25 20:24 Gabapentin 100 Mg Capsule PO 200 mg HS [facility] Administration Glucagon 1 mg 06/27/25 09:51 Glucagon For Inj 1 Mg Vial IM PRN PRN Hypoglycemia Protocol Glucose 15 gm 06/27/25 09:51 Glucose Oral Gel 15 Gm Of Glucse In 37.5 Gm Tube PO PRN PRN Hypoglycemia Protocol Heparin Sodium (Porcine) 5,000 units 06/26/25 21:00 07/05/25 20:24 Heparin Sodium 5,000 Units/Ml Vial SUB-Q 5,000 units Q12HR [facility] Administration Dextrose 1,000 mls @ 100 mls/hr 06/27/25 09:51 Dextrose 5% 1,000 Ml IVPB PRN PRN Hypoglycemia Protocol Albumin Human 50 mls @ 999 mls/hr 06/27/25 23:00 07/05/25 11:14 Albutein IVPB 07/27/25 22:59 100 mls/hr Q10M PRN Administration HYPOTENSION Cefepime HCl 2 gm/ Sodium 50 mls @ 100 mls/hr 06/30/25 18:00 07/05/25 18:04 Chloride IVPB 07/26/25 23:59 Infused MOWEFR [facility] Infusion Ibuprofen 400 mg 06/29/25 11:38 Ibuprofen 400 Mg Tablet PO Q6H PRN Pain Rated 4-6 Insulin Aspart 2 - 5 units 07/02/25 08:00 07/06/25 07:48 Insulin Aspart (*Bkc) 100 Units/Ml SUB-Q Not Given WMHS [facility] Protocol Lidocaine/Prilocaine 1 each 06/28/25 06:10 Lidocaine/Prilocaine Cream 2.5-2.5% Tube TOPICAL WITH DIALYSIS PRN for dialysis Protocol Metronidazole 500 mg 06/30/25 14:00 07/06/25 05:04 Metronidazole 500 Mg Tablet PO 07/26/25 22:01 500 mg Q8HR [facility] Administration Midodrine 10 mg 06/27/25 13:00 07/05/25 17:34 Midodrine Hcl 10 Mg Tablet PO 10 mg TID [facility] Administration Mirtazapine 15 mg 06/27/25 21:00 07/05/25 20:24 Mirtazapine 15 Mg Tablet PO 15 mg HS [facility] Administration Mirtazapine 7.5 mg 06/27/25 21:00 07/05/25 20:24 Mirtazapine 7.5 Mg Tablet PO 7.5 mg HS [facility] Administration Pantoprazole Sodium 40 mg 06/26/25 21:00 07/05/25 20:24 Pantoprazole Sodium Iv 40 Mg Vial IV PUSH 40 mg Q12HR [facility] Administration Senna/Docusate Sodium 1 tab 06/27/25 09:01 Senna/Docusate Sodium Tablet PO BID PRN Constipation Sertraline HCl 50 mg 06/28/25 09:00 07/05/25 09:16 Sertraline Hcl 50 Mg Tablet PO 50 mg QAM [facility] Administration Sevelamer Carbonate 800 mg 06/27/25 17:00 07/03/25 16:49 Sevelamer Carbonate 800 Mg Tablet PO 800 mg On Hold: 07/04/25 08:13 DAILY@1700 [facility] Administration Sodium Chloride 20 ml 06/26/25 11:46 Central Line Flush IV PUSH PRN PRN after blood draws Sodium Hypochlorite 1 applic 06/27/25 21:00 07/05/25 21:38 Sod Hypochlorite 1/4 Strength 473 Ml TOPICAL 1 applic Q12HR [facility] Administration Zinc Sulfate 220 mg 06/28/25 09:00 07/05/25 09:16 Zinc Sulfate 220 Mg Capsule PO 220 mg QAM [facility] Administration Radiology Results: ITS Impressions Abdomen/Pelvis CT 06/26/25 07:59 IMPRESSION: 1. Decubitus wounds. 2. No evidence of osteomyelitis. 3. No evidence of associated abscess. 4. No acute abnormality within abdomen or pelvis. Chest X-Ray 06/28/25 08:20 Impression: CHF. Superimposed left lower lobe pneumonia suspected. The findings are progressed Labs Labs: Laboratory Results - last 24 hr 07/05/25 07/05/25 07/05/25 14:03 16:44 19:57 WBC RBC Hgb Hct MCV MCH MCHC RDW Plt Count MPV Sodium Potassium Chloride Carbon Dioxide Anion Gap BUN Creatinine Estim Creat Clear Calc Estimated GFR Glucose POC Capillary Glucose 220 H 171 H 212 H Calcium Phosphorus Magnesium Albumin 07/06/25 07/06/25 04:03 07:34 WBC 8.0 RBC 3.64 L Hgb 11.3 L Hct 37.4 L MCV 102.7 H MCH 31.0 MCHC 30.2 L RDW 21.4 H Plt Count 124 L MPV 12.8 H Sodium 139 Potassium 3.9 Chloride 103 Carbon Dioxide 27 Anion Gap 9 BUN 31 H D Creatinine 2.99 H Estim Creat Clear Calc Not Reportable Estimated GFR 21 L Glucose 174 H POC Capillary Glucose 153 H Calcium 8.5 Phosphorus 2.1 L Magnesium 2.2 Albumin 3.5 Quality VTE Prophylaxis VTE prophylaxis: pharmacologic ordered
[2025-07-06] MEDS: MIDODRINE HCL 10 MG TABLET PO ×3 (09:00→17:32)
[2025-07-06] MEDS: FOLIC ACID 1 MG TABLET PO (09:00)
[2025-07-06] MEDS: FERROUS SULFATE 325 MG TABLET BY MOUTH (09:00)
[2025-07-06] MEDS: PANTOPRAZOLE SODIUM IV 40 MG VIAL IV PUSH ×2 (09:01→20:58)
[2025-07-06] MEDS: ZINC SULFATE 220 MG CAPSULE PO (09:01)
[2025-07-06] MEDS: SERTRALINE HCL 50 MG TABLET PO (09:01)
--- NOTE | 2025-07-06 10:41 | P.PNNP_ITS ---
Progress Note: A&P Assessment and Plan (1) ESRD (end stage renal disease): Code(s): N18.6 - End stage renal disease Status: Chronic Assessment and Plan: * HD tomorrow * continue M/W/F schedule while hospitalized * follow electrolytes, volume status, and clearance (2) Hypotension: Code(s): I95.9 - Hypotension, unspecified Status: Acute Assessment and Plan: * some degree of chronicity with regard to this issue * on midodrine as an outpatient * suspect acute worsening due to infection (sacral decubitus ulcer + pneumonia) * associated with fever, leukocytosis, altered mental status and shortness of breath on admission * initially on vasopressor therapy but has since been weaned off * resumed on midodrine therapy (3) Decubitus ulcer: Code(s): L89.90 - Pressure ulcer of unspecified site, unspecified stage Status: Acute Assessment and Plan: * significant amount of drainage noted in association with sloughing necrotic tissue * General Surgery following * s/p debridement (down to bone) on 06/28 * on antibiotics * local wound care (wound care following) * continue supportive therapy (4) Bacteremia: Code(s): R78.81 - Bacteremia Status: Acute Assessment and Plan: * blood cultures noted: * from 06/26 - Clostridium perfringens & Eggerthella(Eubacterium) lenta * from 06/29 - no growth to date * Infectious Disease following * on antibiotics * continue current therapy (5) Fluid overload: Qualifiers: Hypervolemia type: other Qualified Code(s): E87.79 - Other fluid overload Code(s): E87.70 - Fluid overload, unspecified Status: Acute Assessment and Plan: * improvement noted * as noted by imaging on presentation * likely etiology of shortness of breath on admission * fluid removal as tolerated by hemodynamics * extra session of HD on 06/26 (in ICU) * continue fluid removal as tolerated by hemodynamics * suspect outpatient dry weight needs adjustment * follow respiratory status (6) Pneumonia: Qualifiers: Laterality: left Lung location: unspecified part of lung Pneumonia type: due to unspecified organism Qualified Code(s): J18.9 - Pneumonia, unspecified organism Code(s): J18.9 - Pneumonia, unspecified organism Status: Acute Assessment and Plan: * as suggested by admission imaging * follow culture data * on antibiotics (7) Anemia: Code(s): D64.9 - Anemia, unspecified Status: Chronic Assessment and Plan: * due to ESRD and possibly worsened by acute illness * Epogen with HD * follow trend of H/H (8) Diabetes mellitus with multiple complications: Code(s): E11.8 - Type 2 diabetes mellitus with unspecified complications Status: Chronic Assessment and Plan: * follow Accu-Cheks * glycemic control per hospitalist Will continue to follow. L Subjective Date/time seen: 07/06/25 10:41 Interval history: Follow-up for end stage renal disease on hemodialysis. Tolerated dialysis treatment yesterday without any issues or problems; no apparent distress noted at this time; no issues/events overnight or earlier this morning; tolerating antibiotic therapy; stable hemodynamics noted. Exam 2 Narrative: General: WD/WN male in NAD Heart: normal S1 and S2; no rub Lungs: decreased at bases Abdomen: soft, nontender, nondistended, positive bowel sounds Extremities: no cyanosis or clubbing; trace edema; s/p bilateral BKAs Skin: no nodules Objective Data Vital Signs Vital Signs: Vital Signs Temp Pulse Resp BP Pulse Ox O2 Del Method FiO2 07/06/25 10:07 97.9 F 67 14 115/50 L 100 07/06/25 08:40 Room Air 07/06/25 08:00 58 L 07/06/25 04:43 97.6 F 58 L 16 126/60 98 07/06/25 04:00 58 L 07/06/25 00:00 62 07/05/25 20:00 66 07/05/25 20:00 61 16 97 Room Air 21 07/05/25 20:00 98.0 F 61 16 120/48 L 97 07/05/25 16:00 68 Intake/Output Intake/Output: Intake & Output 07/03/25 07/04/25 07/05/25 07/06/25 23:59 22:59 23:59 23:59 Intake Total 938 780 850 740 Output Total 1000 Balance 938 780 -150 740 Meds/Results Medications: Active Medications Generic Name Dose Route Start Last Admin Trade Name Freq PRN Reason Stop Dose Admin Acetaminophen 650 mg 06/29/25 11:38 Acetaminophen 325 Mg Tablet PO Q6H PRN Mild Pain (1-3) or Fever Atorvastatin Calcium 40 mg 06/27/25 21:00 07/05/25 20:24 Atorvastatin 40 Mg Tablet PO 40 mg HS [facility] Administration Dextrose 12.5 gm 06/27/25 09:51 Dextrose 50% 25 Gm/50 Ml Syringe IV PUSH PRN PRN Hypoglycemia Protocol Ferrous Sulfate 325 mg 06/28/25 09:00 07/06/25 09:00 Ferrous Sulfate 325 Mg Tablet BY MOUTH 325 mg DAILY [facility] Administration Folic Acid 1 mg 06/28/25 09:00 07/06/25 09:00 Folic Acid 1 Mg Tablet PO 1 mg DAILY [facility] Administration Gabapentin 200 mg 06/27/25 21:00 07/05/25 20:24 Gabapentin 100 Mg Capsule PO 200 mg HS [facility] Administration Glucagon 1 mg 06/27/25 09:51 Glucagon For Inj 1 Mg Vial IM PRN PRN Hypoglycemia Protocol Glucose 15 gm 06/27/25 09:51 Glucose Oral Gel 15 Gm Of Glucse In 37.5 Gm Tube PO PRN PRN Hypoglycemia Protocol Heparin Sodium (Porcine) 5,000 units 06/26/25 21:00 07/06/25 09:01 Heparin Sodium 5,000 Units/Ml Vial SUB-Q 5,000 units Q12HR [facility] Administration Dextrose 1,000 mls @ 100 mls/hr 06/27/25 09:51 Dextrose 5% 1,000 Ml IVPB PRN PRN Hypoglycemia Protocol Albumin Human 50 mls @ 999 mls/hr 06/27/25 23:00 07/05/25 11:14 Albutein IVPB 07/27/25 22:59 100 mls/hr Q10M PRN Administration HYPOTENSION Cefepime HCl 2 gm/ Sodium 50 mls @ 100 mls/hr 06/30/25 18:00 07/05/25 18:04 Chloride IVPB 07/26/25 23:59 Infused MOWEFR [facility] Infusion Ibuprofen 400 mg 06/29/25 11:38 Ibuprofen 400 Mg Tablet PO Q6H PRN Pain Rated 4-6 Insulin Aspart 2 - 5 units 07/02/25 08:00 07/06/25 11:43 Insulin Aspart (*Bkc) 100 Units/Ml SUB-Q Not Given [facility] Protocol Lidocaine/Prilocaine 1 each 06/28/25 06:10 Lidocaine/Prilocaine Cream 2.5-2.5% Tube TOPICAL WITH DIALYSIS PRN for dialysis Protocol Metronidazole 500 mg 06/30/25 14:00 07/06/25 13:53 Metronidazole 500 Mg Tablet PO 07/26/25 22:01 500 mg Q8HR [facility] Administration Midodrine 10 mg 06/27/25 13:00 07/06/25 13:53 Midodrine Hcl 10 Mg Tablet PO 10 mg TID [facility] Administration Mirtazapine 15 mg 06/27/25 21:00 07/05/25 20:24 Mirtazapine 15 Mg Tablet PO 15 mg HS [facility] Administration Mirtazapine 7.5 mg 06/27/25 21:00 07/05/25 20:24 Mirtazapine 7.5 Mg Tablet PO 7.5 mg HS [facility] Administration Pantoprazole Sodium 40 mg 06/26/25 21:00 07/06/25 09:01 Pantoprazole Sodium Iv 40 Mg Vial IV PUSH 40 mg Q12HR [facility] Administration Senna/Docusate Sodium 1 tab 06/27/25 09:01 Senna/Docusate Sodium Tablet PO BID PRN Constipation Sertraline HCl 50 mg 06/28/25 09:00 07/06/25 09:01 Sertraline Hcl 50 Mg Tablet PO 50 mg QAM [facility] Administration Sevelamer Carbonate 800 mg 06/27/25 17:00 07/03/25 16:49 Sevelamer Carbonate 800 Mg Tablet PO 800 mg On Hold: 07/04/25 08:13 DAILY@1700 [facility] Administration Sodium Chloride 20 ml 06/26/25 11:46 Central Line Flush IV PUSH PRN PRN after blood draws Sodium Hypochlorite 1 applic 06/27/25 21:00 07/05/25 21:38 Sod Hypochlorite 1/4 Strength 473 Ml TOPICAL 1 applic Q12HR [facility] Administration Zinc Sulfate 220 mg 06/28/25 09:00 07/06/25 09:01 Zinc Sulfate 220 Mg Capsule PO 220 mg QAM [facility] Administration Radiology Results: ITS Impressions Abdomen/Pelvis CT 06/26/25 07:59 IMPRESSION: 1. Decubitus wounds. 2. No evidence of osteomyelitis. 3. No evidence of associated abscess. 4. No acute abnormality within abdomen or pelvis. Chest X-Ray 06/28/25 08:20 Impression: CHF. Superimposed left lower lobe pneumonia suspected. The findings are progressed Labs Labs: Laboratory Tests 07/06/25 04:03 07/06/25 04:03 Calcium 8.5 Phosphorus 2.1 L Magnesium 2.2 Albumin 3.5 Microbiology 06/26/25 06:22 Blood Blood Culture - Final Eggerthella(Eubacterium) gunjanta 06/29/25 17:02 Blood Blood Culture - Final 06/29/25 16:49 Blood Blood Culture - Final
--- NOTE | 2025-07-06 11:41 | PC.NURSE ---
On 07/06/25, the student, [Marilu Valencia], provided care and completed [facility] documentation on this patient. I have reviewed the student's documentation and agree with the findings.
[2025-07-06] MEDS: SOD HYPOCHLORITE 1/4 STRENGTH 473 ML 1 APPLIC TOPICAL ×2 (16:25→21:55)
[2025-07-06] MEDS: ATORVASTATIN 40 MG TABLET PO (20:58)
[2025-07-06] MEDS: GABAPENTIN 100 MG CAPSULE 200 MG PO (20:58)
[2025-07-06] MEDS: MIRTAZAPINE 7.5 MG TABLET PO (20:58)
[2025-07-06] MEDS: MIRTAZAPINE 15 MG TABLET PO (20:58)
[2025-07-07] VITALS (25 sets, daily range): BP systolic 86–140; BP diastolic 45–67; PULSE 61–81; RESP 16–18; TEMP 36.2–36.9; O2SAT 92–99
[2025-07-07 05:27] LABS: Hematocrit 37.7 % (42.0-52.0); Hemoglobin 11.5 g/dL (14.0-18.0); Immature Platelet Fraction Pct 7.1 % (0.9-11.2); Mean Corpuscular HGB Conc 30.5 g/dl (32-36); Mean Corpuscular Hemoglobin 31.3 pg (26-34); Mean Corpuscular Volume 102.4 fl (80-100); Platelet Count Result 133 k/mm3 (150-375); Red Blood Count 3.68 M/mm3 (4.6-6.20); White Blood Count 13.9 K/mm3 (4.5-10.0)
[2025-07-07 07:25] LABS: Albumin Level 3.3 g/dL (3.5-5.1); Anion Gap 11 mmol/L (4-12); Blood Urea Nitrogen 54 mg/dL (9-20); Calcium 8.5 mg/dL (8.4-10.2); Carbon Dioxide 23 mmol/L (22-30); Chloride 104 mmol/L (98-107); Estimated Glomerular Filt Rate 14; Glucose 229 mg/dL (65-110); Magnesium 2.2 mg/dL (1.6-2.3); Potassium 4.1 mmol/L (3.4-5.0); Sodium 138 mmol/L (137-145)
[2025-07-07] MEDS: LIDOCAINE/PRILOCAINE CREAM 2.5-2.5% TUBE 1 EACH TOPICAL (07:39)
[2025-07-07] MEDS: FERROUS SULFATE 325 MG TABLET BY MOUTH (08:12)
[2025-07-07] MEDS: SERTRALINE HCL 50 MG TABLET PO (08:12)
[2025-07-07] MEDS: ZINC SULFATE 220 MG CAPSULE PO (08:12)
[2025-07-07] MEDS: FOLIC ACID 1 MG TABLET PO (08:12)
[2025-07-07] MEDS: MIDODRINE HCL 10 MG TABLET PO ×3 (08:12→17:28)
[2025-07-07] MEDS: SOD HYPOCHLORITE 1/4 STRENGTH 473 ML 1 APPLIC TOPICAL ×2 (08:13→21:11)
[2025-07-07] MEDS: ALBUMIN HUMAN 25% 25 GM/100 ML 100 ML IVPB (09:02)
--- NOTE | 2025-07-07 09:45 | PCSTNOTE ---
Please refer to the Bedside Swallow Evaluation in the EMR. Please note, silent aspiration cannot be ruled out at bedside. The patient is a 60 year old male admitted acute CHF diagnosis with CKD. Orders received to complete a BSE and r/o aspiration risk. The patient was last seen by speech services in October 2024 to complete a MBS and provided treatment. Recommended at that time 1. Minced and Moist diet 2. Mildly thick liquid 3. Chin tuck swallow all bites and drinks and speech dysphagia intervention. The patient reports awareness of prior thickener use recommended but did not wish to comply. The patient was positioned upright in bed and presented the following consistencies: 5cc/tsp thin liquid, thin liquid via straw, pudding, and solid cracker. Oral Stage: The patient has limited dentition and required extra time for mastication of solids but oral preparation was otherwise timely. Pharyngeal stage: Prior to evaluation the patient is noted to have a hoarse vocal quality at rest. When presented all trials hoarse quality present with some increased raspy vocal quality following thin liquid via straw as well as throat clearing following thin liquid via straw. Recommend 1 . NPO till MBS can be completed. Medication by applesauce upright with chin tuck.
--- NOTE | 2025-07-07 12:25 | P.PNNP_ITS ---
Progress Note: A&P Assessment and Plan (1) ESRD (end stage renal disease): Code(s): N18.6 - End stage renal disease Status: Chronic Assessment and Plan: * HD today * continue M/W/F schedule while hospitalized * follow electrolytes, volume status, and clearance (2) Hypotension: Code(s): I95.9 - Hypotension, unspecified Status: Acute Assessment and Plan: * some degree of chronicity with regard to this issue * on midodrine as an outpatient * suspect acute worsening due to infection (sacral decubitus ulcer + pneumonia) * associated with fever, leukocytosis, altered mental status and shortness of breath on admission * initially on vasopressor therapy but has since been weaned off * resumed on midodrine therapy (3) Decubitus ulcer: Code(s): L89.90 - Pressure ulcer of unspecified site, unspecified stage Status: Acute Assessment and Plan: * significant amount of drainage noted in association with sloughing necrotic tissue * General Surgery following * s/p debridement (down to bone) on 06/28 * on antibiotics * local wound care (wound care following) * continue supportive therapy (4) Bacteremia: Code(s): R78.81 - Bacteremia Status: Acute Assessment and Plan: * blood cultures noted: * from 06/26 - Clostridium perfringens & Eggerthella(Eubacterium) lenta * from 06/29 - no growth to date * Infectious Disease following with recommendations noted * on antibiotics * continue current therapy (5) Fluid overload: Qualifiers: Hypervolemia type: other Qualified Code(s): E87.79 - Other fluid overload Code(s): E87.70 - Fluid overload, unspecified Status: Acute Assessment and Plan: * improvement noted * as noted by imaging on presentation * likely etiology of shortness of breath on admission * fluid removal as tolerated by hemodynamics * extra session of HD on 06/26 (in ICU) * continue fluid removal as tolerated by hemodynamics * suspect outpatient dry weight needs adjustment * follow respiratory status (6) Pneumonia: Qualifiers: Laterality: left Lung location: unspecified part of lung Pneumonia type: due to unspecified organism Qualified Code(s): J18.9 - Pneumonia, unspecified organism Code(s): J18.9 - Pneumonia, unspecified organism Status: Acute Assessment and Plan: * as suggested by admission imaging * follow culture data * on antibiotics (7) Anemia: Code(s): D64.9 - Anemia, unspecified Status: Chronic Assessment and Plan: * due to ESRD and possibly worsened by acute illness * Epogen with HD * follow trend of H/H (8) Diabetes mellitus with multiple complications: Code(s): E11.8 - Type 2 diabetes mellitus with unspecified complications Status: Chronic Assessment and Plan: * follow Accu-Cheks * glycemic control per hospitalist Will continue to follow. L Subjective Date/time seen: 07/07/25 12:25 Interval history: Follow-up for end stage renal disease on hemodialysis. Tolerating dialysis treatment at the time of my visit (seen on HD at 12:15pm); no apparent distress noted when seen; despite chronic hypotension, stable hemodynamics noted; no other acute issues/events overnight or earlier this morning. Exam 2 Narrative: General: WD/WN male in NAD Heart: normal S1 and S2; no rub Lungs: decreased at bases Abdomen: soft, nontender, nondistended, positive bowel sounds Extremities: no cyanosis or clubbing; trace edema; s/p bilateral BKAs Skin: warm and dry Objective Data Vital Signs Vital Signs: Vital Signs Temp Pulse Resp BP Pulse Ox O2 Del Method 07/07/25 12:25 63 92/52 L 07/07/25 12:15 62 94/52 L 07/07/25 12:00 61 07/07/25 12:00 66 86/51 L 07/07/25 11:45 68 93/55 L 07/07/25 11:30 65 91/51 L 07/07/25 11:15 70 86/48 L 07/07/25 11:00 70 89/50 L 07/07/25 10:45 66 96/54 L 07/07/25 10:30 68 93/50 L 07/07/25 10:15 66 93/54 L 07/07/25 10:00 68 99/54 L 07/07/25 09:45 66 96/56 L 07/07/25 09:30 65 101/58 L 07/07/25 09:15 63 116/57 L 07/07/25 09:00 65 116/62 07/07/25 08:48 68 125/64 07/07/25 08:39 98.4 F 66 16 124/67 96 07/07/25 08:00 64 07/07/25 08:00 Room Air 07/07/25 04:32 97.8 F 81 16 129/57 L 92 07/07/25 04:00 71 07/07/25 00:00 61 07/06/25 22:00 Room Air 07/06/25 20:41 100 Room Air 07/06/25 20:05 97.2 F L 61 16 134/62 100 07/06/25 20:00 64 Intake/Output Intake/Output: Intake & Output 07/04/25 07/05/25 07/06/25 07/07/25 22:59 23:59 23:59 23:59 Intake Total 395 174 1126 Output Total 1000 1000 Balance 780 -150 1490 -1000 Meds/Results Medications: Active Medications Generic Name Dose Route Start Last Admin Trade Name Freq PRN Reason Stop Dose Admin Acetaminophen 650 mg 06/29/25 11:38 Acetaminophen 325 Mg Tablet PO Q6H PRN Mild Pain (1-3) or Fever Atorvastatin Calcium 40 mg 06/27/25 21:00 07/06/25 20:58 Atorvastatin 40 Mg Tablet PO 40 mg HS SALVADOR Administration Dextrose 12.5 gm 06/27/25 09:51 Dextrose 50% 25 Gm/50 Ml Syringe IV PUSH PRN PRN Hypoglycemia Protocol Ferrous Sulfate 325 mg 06/28/25 09:00 07/07/25 08:12 Ferrous Sulfate 325 Mg Tablet BY MOUTH 325 mg DAILY [facility] Administration Folic Acid 1 mg 06/28/25 09:00 07/07/25 08:12 Folic Acid 1 Mg Tablet PO 1 mg DAILY [facility] Administration Gabapentin 200 mg 06/27/25 21:00 07/06/25 20:58 Gabapentin 100 Mg Capsule PO 200 mg HS SALVADOR Administration Glucagon 1 mg 06/27/25 09:51 Glucagon For Inj 1 Mg Vial IM PRN PRN Hypoglycemia Protocol Glucose 15 gm 06/27/25 09:51 Glucose Oral Gel 15 Gm Of Glucse In 37.5 Gm Tube PO PRN PRN Hypoglycemia Protocol Heparin Sodium (Porcine) 5,000 units 06/26/25 21:00 07/07/25 08:13 Heparin Sodium 5,000 Units/Ml Vial SUB-Q 5,000 units Q12HR [facility] Administration Dextrose 1,000 mls @ 100 mls/hr 06/27/25 09:51 Dextrose 5% 1,000 Ml IVPB PRN PRN Hypoglycemia Protocol Albumin Human 50 mls @ 999 mls/hr 06/27/25 23:00 07/05/25 11:14 Albutein IVPB 07/27/25 22:59 100 mls/hr Q10M PRN Administration HYPOTENSION Cefepime HCl 2 gm/ Sodium 50 mls @ 100 mls/hr 06/30/25 18:00 07/05/25 18:04 Chloride IVPB 07/26/25 23:59 Infused MOWEFR [facility] Infusion Ibuprofen 400 mg 06/29/25 11:38 Ibuprofen 400 Mg Tablet PO Q6H PRN Pain Rated 4-6 Insulin Aspart 2 - 5 units 07/02/25 08:00 07/07/25 13:22 Insulin Aspart (*Bkc) 100 Units/Ml SUB-Q Not Given [facility] Protocol Lidocaine/Prilocaine 1 each 06/28/25 06:10 07/07/25 07:39 Lidocaine/Prilocaine Cream 2.5-2.5% Tube TOPICAL 1 each WITH DIALYSIS PRN Administration for dialysis Protocol Metronidazole 500 mg 06/30/25 14:00 07/07/25 13:12 Metronidazole 500 Mg Tablet PO 07/26/25 22:01 500 mg Q8HR [facility] Administration Midodrine 10 mg 06/27/25 13:00 07/07/25 13:12 Midodrine Hcl 10 Mg Tablet PO 10 mg TID [facility] Administration Mirtazapine 15 mg 06/27/25 21:00 07/06/25 20:58 Mirtazapine 15 Mg Tablet PO 15 mg HS [facility]AD[facility] Administration Mirtazapine 7.5 mg 06/27/25 21:00 07/06/25 20:58 Mirtazapine 7.5 Mg Tablet PO 7.5 mg HS [facility]ADOR Administration Pantoprazole Sodium 40 mg 06/26/25 21:00 07/07/25 08:13 Pantoprazole Sodium Iv 40 Mg Vial IV PUSH Not Given Q12HR [facility] Senna/Docusate Sodium 1 tab 06/27/25 09:01 Senna/Docusate Sodium Tablet PO BID PRN Constipation Sertraline HCl 50 mg 06/28/25 09:00 07/07/25 08:12 Sertraline Hcl 50 Mg Tablet PO 50 mg QAM [facility] Administration Sevelamer Carbonate 800 mg 06/27/25 17:00 07/03/25 16:49 Sevelamer Carbonate 800 Mg Tablet PO 800 mg On Hold: 07/04/25 08:13 DAILY@1700 [facility] Administration Sodium Chloride 20 ml 06/26/25 11:46 Central Line Flush IV PUSH PRN PRN after blood draws Sodium Hypochlorite 1 applic 06/27/25 21:00 07/07/25 08:13 Sod Hypochlorite 1/4 Strength 473 Ml TOPICAL 1 applic Q12HR [facility] Administration Zinc Sulfate 220 mg 06/28/25 09:00 07/07/25 08:12 Zinc Sulfate 220 Mg Capsule PO 220 mg QAM [facility] Administration Radiology Results: ITS Impressions Abdomen/Pelvis CT 06/26/25 07:59 IMPRESSION: 1. Decubitus wounds. 2. No evidence of osteomyelitis. 3. No evidence of associated abscess. 4. No acute abnormality within abdomen or pelvis. Chest X-Ray 07/07/25 08:08 IMPRESSION: 1. Persistent interstitial pulmonary edema and/or multifocal airspace disease. Labs Labs: Laboratory Tests 07/07/25 04:30 07/07/25 04:30 Calcium 8.5 Phosphorus 2.1 L Magnesium 2.2 Albumin 3.3 L
--- NOTE | 2025-07-07 14:57 | PM.IMPN ---
Progress Note: A&P Assessment and Plan (1) Shock: Code(s): R57.9 - Shock, unspecified Status: Acute (2) Pulmonary edema: Qualifiers: Chronicity: acute Qualified Code(s): J81.0 - Acute pulmonary edema Code(s): J81.1 - Chronic pulmonary edema Status: Acute (3) Pneumonia: Qualifiers: Laterality: left Lung location: unspecified part of lung Pneumonia type: due to unspecified organism Qualified Code(s): J18.9 - Pneumonia, unspecified organism Code(s): J18.9 - Pneumonia, unspecified organism Status: Acute (4) Decubitus ulcer: Code(s): L89.90 - Pressure ulcer of unspecified site, unspecified stage Status: Acute (5) ESRD (end stage renal disease) on dialysis: Code(s): N18.6 - End stage renal disease; Z99.2 - Dependence on renal dialysis Status: Acute (6) Type 2 diabetes mellitus: Qualifiers: Diabetes mellitus chcf insulin use: without chcf use Diabetes mellitus complication status: with kidney complications Diabetes mellitus complication detail: with chronic kidney disease Chronic kidney disease stage: on chronic dialysis Qualified Code(s): E11.22 - Type 2 diabetes mellitus with diabetic chronic kidney disease; N18.6 - End stage renal disease; Z99.2 - Dependence on renal dialysis Code(s): E11.9 - Type 2 diabetes mellitus without complications Status: Chronic (7) Anemia of chronic disease: Code(s): D63.8 - Anemia in other chronic diseases classified elsewhere Status: Chronic Plan 60 y/o M with PMH of iron deficiency anemia/anemia of chronic disease, pAFib, coronary artery disease s/p multiple stents and CABG, diabetes, ESRD on HD, CHF, and RISA not on CPAP presented here with altered mental status and fever. Patient was diagnosed with septic shock resulting in altered mental status, likely secondary to sacral wound. Patient was admitted to ICU initially. General surgery was consulted. Was started on cefepime, doxycycline, Flagyl. Status post debridement of the sacral wound. Blood culture grew Clostridium, Eubacterium. ID was consulted as well patient seen in dialysis tolerating treatment today without any issues or problems; no apparent distress noted at this time; no issues/events overnight or earlier this morning; tolerating antibiotic therapy; stable hemodynamics noted. patient clinical symptoms are improving. waiting for placement, will continue to monitor. 1. Septic shock: Secondary toe sacral decubitus ulcer, LLL pneumonia Patient was started on broad-spectrum antibiotic including cefepime, vancomycin, doxycycline, Flagyl Required pressor support with norepinephrine, has been weaned out Has been moved out of ICU ID following, appreciate recs Blood culture grew Clostridium, and eggerthelia bacteremia will need 4 weeks of cefepime and flagyl, EOT 07/26 continue cefepime, and Flagyl No need for PICC line as cefepime can be given with dialysis Status post debridement of sacral decubitus ulcer by surgery (2) CHF: Pulmonary edema seen on CXR (06/28). Patient has history of combined systolic/diastolic CHF. Fluid balance managed via dialysis that he receives Mondays, Wednesdays, Fridays. Has not missed any treatments and has been able to receive his full treatments. (3) ESRD (end stage renal disease) on dialysis: Nephrology following Dialysis as blood renal plan Monitor electrolytes Monitor blood pressure (4) Type 2 diabetes mellitus: History of type 2 diabetes complicated by ESRD, bilateral BKA, and diabetic neuropathy. Blood glucose checked t.i.d. a.c. and HS Continue with sliding scale insulin Hypoglycemia protocol in place (5) Anemia of chronic disease: Monitor H&H Transfuse for hemoglobin less than 7 6. Code status: DNR 7. DVT prophylaxis: Heparin subQ 8. Disposition: Pending placement. CM working on this. Subjective Date/time seen: 07/07/25 14:57 Interval history: Follow-up for end stage renal disease on hemodialysis. patient seen in dialysis tolerating treatment today without any issues or problems; no apparent distress noted at this time; no issues/events overnight or earlier this morning; tolerating antibiotic therapy; stable hemodynamics noted. patient clinicall symptoms are improving. waiting for placement, will continue to monitor. Review of Systems Review of Systems: All systems reviewed & are unremarkable except as noted in HPI and below ROS unobtainable: Yes unobtainable due to mental status Exam Narrative: Patient is comfortable, NAD HEENT: eyes are clear and none icteric LUNGS:CTA HEART: RR S1S2 ABD: BS+, Soft and nontender Lower extremities: no edema SKIN: nonjaundiced Neuro: grossly intact. Objective Data Vital Signs Vital Signs: Vital Signs - 24 hr 07/06/25 16:00 07/06/25 20:00 07/06/25 20:05 Temperature 36.2 C L Pulse Rate 65 64 61 Respiratory Rate 16 Blood Pressure 134/62 Pulse Oximetry 100 Oxygen Delivery 07/06/25 20:41 07/06/25 22:00 07/07/25 00:00 Temperature Pulse Rate 61 Respiratory Rate Blood Pressure Pulse Oximetry 100 Oxygen Delivery Room Air Room Air 07/07/25 04:00 07/07/25 04:32 07/07/25 08:00 Temperature 36.6 C Pulse Rate 71 81 Respiratory Rate 16 Blood Pressure 129/57 L Pulse Oximetry 92 Oxygen Delivery Room Air 07/07/25 08:00 07/07/25 08:39 07/07/25 08:48 Temperature 36.9 C Pulse Rate 64 66 68 Respiratory Rate 16 Blood Pressure 124/67 125/64 Pulse Oximetry 96 Oxygen Delivery 07/07/25 09:00 07/07/25 09:15 07/07/25 09:30 Temperature Pulse Rate 65 63 65 Respiratory Rate Blood Pressure 116/62 116/57 L 101/58 L Pulse Oximetry Oxygen Delivery 07/07/25 09:45 07/07/25 10:00 07/07/25 10:15 Temperature Pulse Rate 66 68 66 Respiratory Rate Blood Pressure 96/56 L 99/54 L 93/54 L Pulse Oximetry Oxygen Delivery 07/07/25 10:30 07/07/25 10:45 07/07/25 11:00 Temperature Pulse Rate 68 66 70 Respiratory Rate Blood Pressure 93/50 L 96/54 L 89/50 L Pulse Oximetry Oxygen Delivery 07/07/25 11:15 07/07/25 11:30 07/07/25 11:45 Temperature Pulse Rate 70 65 68 Respiratory Rate Blood Pressure 86/48 L 91/51 L 93/55 L Pulse Oximetry Oxygen Delivery 07/07/25 12:00 07/07/25 12:00 07/07/25 12:15 Temperature Pulse Rate 66 61 62 Respiratory Rate Blood Pressure 86/51 L 94/52 L Pulse Oximetry Oxygen Delivery 07/07/25 12:25 07/07/25 12:27 07/07/25 14:11 Temperature 36.5 C 36.2 C L Pulse Rate 63 65 70 Respiratory Rate 16 18 Blood Pressure 92/52 L 114/54 L 140/53 L Pulse Oximetry 96 99 Oxygen Delivery Intake/Output Intake/Output: Intake & Output 07/04/25 07/05/25 07/06/25 07/07/25 22:59 23:59 23:59 23:59 Intake Total 382 224 2800 Output Total 1000 1000 Balance 780 -150 1490 -1000 Meds/Results Medications: Active Medications Generic Name Dose Route Start Last Admin Trade Name Freq PRN Reason Stop Dose Admin Acetaminophen 650 mg 06/29/25 11:38 Acetaminophen 325 Mg Tablet PO Q6H PRN Mild Pain (1-3) or Fever Atorvastatin Calcium 40 mg 06/27/25 21:00 07/06/25 20:58 Atorvastatin 40 Mg Tablet PO 40 mg HS [facility]OR Administration Dextrose 12.5 gm 06/27/25 09:51 Dextrose 50% 25 Gm/50 Ml Syringe IV PUSH PRN PRN Hypoglycemia Protocol Ferrous Sulfate 325 mg 06/28/25 09:00 07/07/25 08:12 Ferrous Sulfate 325 Mg Tablet BY MOUTH 325 mg DAILY [facility] Administration Folic Acid 1 mg 06/28/25 09:00 07/07/25 08:12 Folic Acid 1 Mg Tablet PO 1 mg DAILY [facility] Administration Gabapentin 200 mg 06/27/25 21:00 07/06/25 20:58 Gabapentin 100 Mg Capsule PO 200 mg HS SAL[facility]ADOR Administration Glucagon 1 mg 06/27/25 09:51 Glucagon For Inj 1 Mg Vial IM PRN PRN Hypoglycemia Protocol Glucose 15 gm 06/27/25 09:51 Glucose Oral Gel 15 Gm Of Glucse In 37.5 Gm Tube PO PRN PRN Hypoglycemia Protocol Heparin Sodium (Porcine) 5,000 units 06/26/25 21:00 07/07/25 08:13 Heparin Sodium 5,000 Units/Ml Vial SUB-Q 5,000 units Q12HR [facility] Administration Dextrose 1,000 mls @ 100 mls/hr 06/27/25 09:51 Dextrose 5% 1,000 Ml IVPB PRN PRN Hypoglycemia Protocol Albumin Human 50 mls @ 999 mls/hr 06/27/25 23:00 07/05/25 11:14 Albutein IVPB 07/27/25 22:59 100 mls/hr Q10M PRN Administration HYPOTENSION Cefepime HCl 2 gm/ Sodium 50 mls @ 100 mls/hr 06/30/25 18:00 07/05/25 18:04 Chloride IVPB 07/26/25 23:59 Infused MOWEFR [facility] Infusion Ibuprofen 400 mg 06/29/25 11:38 Ibuprofen 400 Mg Tablet PO Q6H PRN Pain Rated 4-6 Insulin Aspart 2 - 5 units 07/02/25 08:00 07/07/25 13:22 Insulin Aspart (*Bkc) 100 Units/Ml SUB-Q Not Given WMHS [facility] Protocol Lidocaine/Prilocaine 1 each 06/28/25 06:10 07/07/25 07:39 Lidocaine/Prilocaine Cream 2.5-2.5% Tube TOPICAL 1 each WITH DIALYSIS PRN Administration for dialysis Protocol Metronidazole 500 mg 06/30/25 14:00 07/07/25 13:12 Metronidazole 500 Mg Tablet PO 07/26/25 22:01 500 mg Q8HR [facility] Administration Midodrine 10 mg 06/27/25 13:00 07/07/25 13:12 Midodrine Hcl 10 Mg Tablet PO 10 mg TID [facility] Administration Mirtazapine 15 mg 06/27/25 21:00 07/06/25 20:58 Mirtazapine 15 Mg Tablet PO 15 mg HS [facility] Administration Mirtazapine 7.5 mg 06/27/25 21:00 07/06/25 20:58 Mirtazapine 7.5 Mg Tablet PO 7.5 mg HS [facility] Administration Pantoprazole Sodium 40 mg 06/26/25 21:00 07/07/25 08:13 Pantoprazole Sodium Iv 40 Mg Vial IV PUSH Not Given Q12HR [facility] Senna/Docusate Sodium 1 tab 06/27/25 09:01 Senna/Docusate Sodium Tablet PO BID PRN Constipation Sertraline HCl 50 mg 06/28/25 09:00 07/07/25 08:12 Sertraline Hcl 50 Mg Tablet PO 50 mg QAM [facility] Administration Sevelamer Carbonate 800 mg 06/27/25 17:00 07/03/25 16:49 Sevelamer Carbonate 800 Mg Tablet PO 800 mg On Hold: 07/04/25 08:13 DAILY@1700 [facility] Administration Sodium Chloride 20 ml 06/26/25 11:46 Central Line Flush IV PUSH PRN PRN after blood draws Sodium Hypochlorite 1 applic 06/27/25 21:00 07/07/25 08:13 Sod Hypochlorite 1/4 Strength 473 Ml TOPICAL 1 applic Q12HR [facility] Administration Zinc Sulfate 220 mg 06/28/25 09:00 07/07/25 08:12 Zinc Sulfate 220 Mg Capsule PO 220 mg QAM [facility] Administration Radiology Results: ITS Impressions Abdomen/Pelvis CT 06/26/25 07:59 IMPRESSION: 1. Decubitus wounds. 2. No evidence of osteomyelitis. 3. No evidence of associated abscess. 4. No acute abnormality within abdomen or pelvis. Chest X-Ray 07/07/25 08:08 IMPRESSION: 1. Persistent interstitial pulmonary edema and/or multifocal airspace disease. Labs Labs: Laboratory Results - last 24 hr 07/06/25 07/06/25 07/07/25 16:24 20:03 04:30 WBC 13.9 H RBC 3.68 L Hgb 11.5 L Hct 37.7 L MCV 102.4 H MCH 31.3 MCHC 30.5 L RDW 21.9 H Plt Count 133 L MPV 13.6 H % Immature Plt Fraction 7.1 Sodium 138 Potassium 4.1 Chloride 104 Carbon Dioxide 23 Anion Gap 11 BUN 54 H D Creatinine 4.20 H Estim Creat Clear Calc Not Reportable Estimated GFR 14 L Glucose 229 H POC Capillary Glucose 171 H 197 H Calcium 8.5 Phosphorus 2.1 L Magnesium 2.2 Albumin 3.3 L 07/07/25 07/07/25 07:27 13:15 WBC RBC Hgb Hct MCV MCH MCHC RDW Plt Count MPV % Immature Plt Fraction Sodium Potassium Chloride Carbon Dioxide Anion Gap BUN Creatinine Estim Creat Clear Calc Estimated GFR Glucose POC Capillary Glucose 197 H 142 H Calcium Phosphorus Magnesium Albumin Quality VTE Prophylaxis VTE prophylaxis: pharmacologic ordered
[2025-07-07] MEDS: CEFEPIME 2 GM in SODIUM CHLORIDE 0.9% IV 50 ML 100 ML IVPB (17:29)
[2025-07-07] MEDS: INSULIN ASPART (*BKC) 100 UNITS/ML SUB-Q (17:39)
[2025-07-07] MEDS: MIRTAZAPINE 7.5 MG TABLET PO (20:57)
[2025-07-07] MEDS: GABAPENTIN 100 MG CAPSULE 200 MG PO (20:57)
[2025-07-07] MEDS: MIRTAZAPINE 15 MG TABLET PO (20:57)
[2025-07-07] MEDS: ATORVASTATIN 40 MG TABLET PO (20:57)
[2025-07-07] MEDS: PANTOPRAZOLE SODIUM IV 40 MG VIAL IV PUSH (21:04)
--- NOTE | 2025-07-07 21:05 | WPDINFPN2 ---
Progress Note: A&P Assessment and Plan (1) Decubitus ulcer: Qualifiers: Pressure injury location: sacral region Pressure injury stage: stage 4 Qualified Code(s): L89.154 - Pressure ulcer of sacral region, stage 4 Code(s): L89.90 - Pressure ulcer of unspecified site, unspecified stage Status: Acute (2) ESRD (end stage renal disease) on dialysis: Code(s): N18.6 - End stage renal disease; Z99.2 - Dependence on renal dialysis Status: Acute Assessment and Plan: ASSESSMENT: 1. sacral decubitis s/p I&D--wound down to bone; imaging neg for osteomyelitis 2. clostridium perfringers and Eggerthelia bacteremia--likely 2nd to #1 3. ESRD on HD via RUE AVF 4. DM 5. afib 6. CAD s/p CABG 7. heart failure 8. penicillin allergy-->unknown reaction 9. s/p bilateral BKAs RECOMMENDATIONS repeat BCx neg Continue cefepime and Flagyl for 4 week therapy. Anticipated end of therapy would be July 26, 2025 At discharge, cefepime can be given with dialysis on HD days, so no PICC line will be needed. please send CMP, CBC, CRP, ESR to my fax at [phone] monitor WBC count and temp curve d/w pharmacy staff Pt was seen via video telehealth consult with the assistance of staff. Chart, data, and patient interview independently reviewed by me. Pt was located at [facility] while I was in my [place] office. Pt gave verbal consent. Subjective Date/time seen: 07/07/25 21:05 Interval history: no fevers WBC coutn up Pt states he was constipated and then given something and had BMs Exam Narrative: abd soft NT Objective Data Vital Signs Vital Signs: Vital Signs - 24 hr 07/06/25 22:00 07/07/25 00:00 07/07/25 04:00 Temperature Pulse Rate 61 71 Respiratory Rate Blood Pressure Pulse Oximetry Oxygen Delivery Room Air 07/07/25 04:32 07/07/25 08:00 07/07/25 08:00 Temperature 97.8 F Pulse Rate 81 64 Respiratory Rate 16 Blood Pressure 129/57 L Pulse Oximetry 92 Oxygen Delivery Room Air 07/07/25 08:39 07/07/25 08:48 07/07/25 09:00 Temperature 98.4 F Pulse Rate 66 68 65 Respiratory Rate 16 Blood Pressure 124/67 125/64 116/62 Pulse Oximetry 96 Oxygen Delivery 07/07/25 09:15 07/07/25 09:30 07/07/25 09:45 Temperature Pulse Rate 63 65 66 Respiratory Rate Blood Pressure 116/57 L 101/58 L 96/56 L Pulse Oximetry Oxygen Delivery 07/07/25 10:00 07/07/25 10:15 07/07/25 10:30 Temperature Pulse Rate 68 66 68 Respiratory Rate Blood Pressure 99/54 L 93/54 L 93/50 L Pulse Oximetry Oxygen Delivery 07/07/25 10:45 07/07/25 11:00 07/07/25 11:15 Temperature Pulse Rate 66 70 70 Respiratory Rate Blood Pressure 96/54 L 89/50 L 86/48 L Pulse Oximetry Oxygen Delivery 07/07/25 11:30 07/07/25 11:45 07/07/25 12:00 Temperature Pulse Rate 65 68 66 Respiratory Rate Blood Pressure 91/51 L 93/55 L 86/51 L Pulse Oximetry Oxygen Delivery 07/07/25 12:00 07/07/25 12:15 07/07/25 12:25 Temperature Pulse Rate 61 62 63 Respiratory Rate Blood Pressure 94/52 L 92/52 L Pulse Oximetry Oxygen Delivery 07/07/25 12:27 07/07/25 14:11 Temperature 97.7 F 97.2 F L Pulse Rate 65 70 Respiratory Rate 16 18 Blood Pressure 114/54 L 140/53 L Pulse Oximetry 96 99 Oxygen Delivery Intake/Output Intake/Output: Intake & Output 07/04/25 07/05/25 07/06/25 07/07/25 22:59 23:59 23:59 23:59 Intake Total 351 730 5823 290 Output Total 1000 1000 Balance 780 -150 1490 -710 Meds/Results Medications: Active Medications Generic Name Dose Route Start Last Admin Trade Name Freq PRN Reason Stop Dose Admin Acetaminophen 650 mg 06/29/25 11:38 Acetaminophen 325 Mg Tablet PO Q6H PRN Mild Pain (1-3) or Fever Atorvastatin Calcium 40 mg 06/27/25 21:00 07/07/25 20:57 Atorvastatin 40 Mg Tablet PO 40 mg HS [facility]ADOR Administration Dextrose 12.5 gm 06/27/25 09:51 Dextrose 50% 25 Gm/50 Ml Syringe IV PUSH PRN PRN Hypoglycemia Protocol Ferrous Sulfate 325 mg 06/28/25 09:00 07/07/25 08:12 Ferrous Sulfate 325 Mg Tablet BY MOUTH 325 mg DAILY [facility] Administration Folic Acid 1 mg 06/28/25 09:00 07/07/25 08:12 Folic Acid 1 Mg Tablet PO 1 mg DAILY [facility] Administration Gabapentin 200 mg 06/27/25 21:00 07/07/25 20:57 Gabapentin 100 Mg Capsule PO 200 mg HS [facility]AD[facility] Administration Glucagon 1 mg 06/27/25 09:51 Glucagon For Inj 1 Mg Vial IM PRN PRN Hypoglycemia Protocol Glucose 15 gm 06/27/25 09:51 Glucose Oral Gel 15 Gm Of Glucse In 37.5 Gm Tube PO PRN PRN Hypoglycemia Protocol Heparin Sodium (Porcine) 5,000 units 06/26/25 21:00 07/07/25 08:13 Heparin Sodium 5,000 Units/Ml Vial SUB-Q 5,000 units Q12HR [facility] Administration Dextrose 1,000 mls @ 100 mls/hr 06/27/25 09:51 Dextrose 5% 1,000 Ml IVPB PRN PRN Hypoglycemia Protocol Albumin Human 50 mls @ 999 mls/hr 06/27/25 23:00 07/05/25 11:14 Albutein IVPB 07/27/25 22:59 100 mls/hr Q10M PRN Administration HYPOTENSION Cefepime HCl 2 gm/ Sodium 50 mls @ 100 mls/hr 06/30/25 18:00 07/07/25 17:59 Chloride IVPB 07/26/25 23:59 Infused MOWEFR [facility]OR Infusion Ibuprofen 400 mg 06/29/25 11:38 Ibuprofen 400 Mg Tablet PO Q6H PRN Pain Rated 4-6 Insulin Aspart 2 - 5 units 07/02/25 08:00 07/07/25 17:39 Insulin Aspart (*Bkc) 100 Units/Ml SUB-Q 2 units WMHS [facility] Administration Protocol Lidocaine/Prilocaine 1 each 06/28/25 06:10 07/07/25 07:39 Lidocaine/Prilocaine Cream 2.5-2.5% Tube TOPICAL 1 each WITH DIALYSIS PRN Administration for dialysis Protocol Metronidazole 500 mg 06/30/25 14:00 07/07/25 13:12 Metronidazole 500 Mg Tablet PO 07/26/25 22:01 500 mg Q8HR [facility] Administration Midodrine 10 mg 06/27/25 13:00 07/07/25 17:28 Midodrine Hcl 10 Mg Tablet PO 10 mg TID [facility] Administration Mirtazapine 15 mg 06/27/25 21:00 07/07/25 20:57 Mirtazapine 15 Mg Tablet PO 15 mg HS [facility]AD[facility] Administration Mirtazapine 7.5 mg 06/27/25 21:00 07/07/25 20:57 Mirtazapine 7.5 Mg Tablet PO 7.5 mg HS SAL[facility]AD[facility] Administration Pantoprazole Sodium 40 mg 06/26/25 21:00 07/07/25 08:13 Pantoprazole Sodium Iv 40 Mg Vial IV PUSH Not Given Q12HR [facility]AD[facility] Senna/Docusate Sodium 1 tab 06/27/25 09:01 Senna/Docusate Sodium Tablet PO BID PRN Constipation Sertraline HCl 50 mg 06/28/25 09:00 07/07/25 08:12 Sertraline Hcl 50 Mg Tablet PO 50 mg QAM [facility]AD[facility] Administration Sevelamer Carbonate 800 mg 06/27/25 17:00 07/03/25 16:49 Sevelamer Carbonate 800 Mg Tablet PO 800 mg On Hold: 07/04/25 08:13 DAILY@1700 [facility] Administration Sodium Chloride 20 ml 06/26/25 11:46 Central Line Flush IV PUSH PRN PRN after blood draws Sodium Hypochlorite 1 applic 06/27/25 21:00 07/07/25 08:13 Sod Hypochlorite 1/4 Strength 473 Ml TOPICAL 1 applic Q12HR [facility]ADOR Administration Zinc Sulfate 220 mg 06/28/25 09:00 07/07/25 08:12 Zinc Sulfate 220 Mg Capsule PO 220 mg QAM [facility]AD[facility] Administration Radiology Results: ITS Impressions Abdomen/Pelvis CT 06/26/25 07:59 IMPRESSION: 1. Decubitus wounds. 2. No evidence of osteomyelitis. 3. No evidence of associated abscess. 4. No acute abnormality within abdomen or pelvis. Chest X-Ray 07/07/25 08:08 IMPRESSION: 1. Persistent interstitial pulmonary edema and/or multifocal airspace disease. Labs Labs: Laboratory Results - last 24 hr 07/06/25 07/07/25 07/07/25 20:03 04:30 07:27 WBC 13.9 H RBC 3.68 L Hgb 11.5 L Hct 37.7 L MCV 102.4 H MCH 31.3 MCHC 30.5 L RDW 21.9 H Plt Count 133 L MPV 13.6 H % Immature Plt Fraction 7.1 Sodium 138 Potassium 4.1 Chloride 104 Carbon Dioxide 23 Anion Gap 11 BUN 54 H D Creatinine 4.20 H Estim Creat Clear Calc Not Reportable Estimated GFR 14 L Glucose 229 H POC Capillary Glucose 197 H 197 H Calcium 8.5 Phosphorus 2.1 L Magnesium 2.2 Albumin 3.3 L 07/07/25 07/07/25 13:15 17:10 WBC RBC Hgb Hct MCV MCH MCHC RDW Plt Count MPV % Immature Plt Fraction Sodium Potassium Chloride Carbon Dioxide Anion Gap BUN Creatinine Estim Creat Clear Calc Estimated GFR Glucose POC Capillary Glucose 142 H 232 H Calcium Phosphorus Magnesium Albumin
[2025-07-08 04:47] VITALS: BP 124/63; PULSE 58; RESP 16; TEMP 36.6; O2SAT 95
[2025-07-08 05:31] LABS: Hematocrit 39.3 % (42.0-52.0); Hemoglobin 11.9 g/dL (14.0-18.0); Immature Platelet Fraction Pct 8.2 % (0.9-11.2); Mean Corpuscular HGB Conc 30.3 g/dl (32-36); Mean Corpuscular Hemoglobin 31.6 pg (26-34); Mean Corpuscular Volume 104.2 fl (80-100); Platelet Count Result 121 k/mm3 (150-375); Red Blood Count 3.77 M/mm3 (4.6-6.20); White Blood Count 13.3 K/mm3 (4.5-10.0)
[2025-07-08 05:51] LABS: Albumin Level 3.7 g/dL (3.5-5.1); Anion Gap 7 mmol/L (4-12); Blood Urea Nitrogen 29 mg/dL (9-20); Calcium 8.8 mg/dL (8.4-10.2); Carbon Dioxide 29 mmol/L (22-30); Chloride 105 mmol/L (98-107); Estimated Glomerular Filt Rate 20; Glucose 168 mg/dL (65-110); Magnesium 2.3 mg/dL (1.6-2.3); Potassium 4.3 mmol/L (3.4-5.0); Sodium 141 mmol/L (137-145)
--- NOTE | 2025-07-08 08:40 | PC.NURSE ---
To Radiology per stretcher for barium swallow.
--- NOTE | 2025-07-08 09:49 | PCSTNOTE ---
Please refer to the Modified Barium Swallow Evaluation in the EMR. The patient is a 60 year old male with a history of dysphagia admitted with a diagnosis of CHF. He has previously had a MBS Study October 2024 with recommendations for mildly thick liquid, chin tuck posture, and minced and moist diet. More recent he states he was no longer utilizing the chin tuck posture, mildly thick liquid, or minced and moist diet. The patient was positioned in a lateral view and given the following consistencies: 5cc/tsp thin liquid, 5cc/tsp mildly thick liquid, thin liquid via cup, mildly thick liquid via cup, pudding mixed with barium, paste, and cracker coated with barium paste. Oral Stage: Timely oral preparation all consistencies with one exception delayed oral preparation and mastication of cracker consistency resulting in premature spillage of the bolus to the level of the pyriform. Pharyngeal Stage: When presented cup trials thin liquid the patient was viewed to have gracy aspiration below the level of the vocal cords. The patient attempted to cough and clear and has awareness of the aspiration. However, patient was unable to effectively eject due to a weak cough response. No additional aspiration or penetration viewed with all other consistencies trials. Trace residual remained in the valleculae for all textures except thin liquid due to reduced lingual pressure. Recommend: 1. Minced and Moist Diet / Level 5 2. Mildly thick liquid / Level 2 3. Upright with all meals 4. Small bites and drinks 5. No Straw 6. Frequent observation 7. Speech therapy services to address laryngeal elevation and lingual pressure
[2025-07-08] MEDS: FERROUS SULFATE 325 MG TABLET BY MOUTH (09:57)
[2025-07-08] MEDS: SERTRALINE HCL 50 MG TABLET PO (09:57)
[2025-07-08] MEDS: PANTOPRAZOLE SODIUM IV 40 MG VIAL IV PUSH ×2 (09:57→20:33)
[2025-07-08] MEDS: FOLIC ACID 1 MG TABLET PO (09:57)
[2025-07-08] MEDS: SOD HYPOCHLORITE 1/4 STRENGTH 473 ML 1 APPLIC TOPICAL ×2 (09:57→20:36)
[2025-07-08] MEDS: MIDODRINE HCL 10 MG TABLET PO ×3 (09:57→17:24)
[2025-07-08] MEDS: ZINC SULFATE 220 MG CAPSULE PO (09:57)
--- NOTE | 2025-07-08 11:18 | PCNFU ---
Nutrition Follow-Up Complete: Severe protein calorie malnutrition related to loss of appetite, increased protein energy needs from wounds, as evidenced by intakes <75% needs >1 month; weight loss 18%/2 months; severe muscle wasting and fat loss. Goal: Intakes >50% meals and supplements We will continue current goal. Pt current nutrition is Renal Minced and Moist, Level 5 diet with Mildly Thick liquids, Level 2. Last recorded weight is 71.5 kg, down from 73.6 kg on admit. Bowel Motility: Last reported BM 07/07 Labs Reviewed: 11.9, Hct 39.3, BUN 29, Cr 3.22, Glu 168, PO4 2.3 Meds Noted: Protonix, Remeron, NovoLog Skin: Stage 4-sacrum. Additional Notes: Patient had MBS today. Diet order changes to Minced and Moist, Level 5 with Mildly Thick liquids, Level 2. Diet supplements being provided of Nepro (420 kcal and 19 gm protein) and Malik BID(90 kcal, 7 gm glutamine, 7 gm arginine and 2.5 gm protein for wound healing. Agree with diet orders. Monitoring skin, weights, intakes, labs, output, plan of care Follow up 5 days.
--- NOTE | 2025-07-08 12:47 | PM.IMPN ---
Progress Note: A&P Assessment and Plan (1) Shock: Code(s): R57.9 - Shock, unspecified Status: Acute (2) Pulmonary edema: Qualifiers: Chronicity: acute Qualified Code(s): J81.0 - Acute pulmonary edema Code(s): J81.1 - Chronic pulmonary edema Status: Acute (3) Pneumonia: Qualifiers: Laterality: left Lung location: unspecified part of lung Pneumonia type: due to unspecified organism Qualified Code(s): J18.9 - Pneumonia, unspecified organism Code(s): J18.9 - Pneumonia, unspecified organism Status: Acute (4) Decubitus ulcer: Code(s): L89.90 - Pressure ulcer of unspecified site, unspecified stage Status: Acute (5) ESRD (end stage renal disease) on dialysis: Code(s): N18.6 - End stage renal disease; Z99.2 - Dependence on renal dialysis Status: Acute (6) Type 2 diabetes mellitus: Qualifiers: Diabetes mellitus correction insulin use: without correction use Diabetes mellitus complication status: with kidney complications Diabetes mellitus complication detail: with chronic kidney disease Chronic kidney disease stage: on chronic dialysis Qualified Code(s): E11.22 - Type 2 diabetes mellitus with diabetic chronic kidney disease; N18.6 - End stage renal disease; Z99.2 - Dependence on renal dialysis Code(s): E11.9 - Type 2 diabetes mellitus without complications Status: Chronic (7) Anemia of chronic disease: Code(s): D63.8 - Anemia in other chronic diseases classified elsewhere Status: Chronic Plan 60 y/o M with PMH of iron deficiency anemia/anemia of chronic disease, pAFib, coronary artery disease s/p multiple stents and CABG, diabetes, ESRD on HD, CHF, and RISA not on CPAP presented here with altered mental status and fever. Patient was diagnosed with septic shock resulting in altered mental status, likely secondary to sacral wound. Patient was admitted to ICU initially. General surgery was consulted. Was started on cefepime, doxycycline, Flagyl. Status post debridement of the sacral wound. Blood culture grew Clostridium, Eubacterium. ID was consulted as well patient is tolerating dialysis treatment without any issues or problems; no apparent distress noted at this time; no issues/events overnight or earlier this morning; tolerating antibiotic therapy; stable hemodynamics noted. patient clinical symptoms are improving. waiting for placement, will continue to monitor. Patient is seen by ID, recommending to CPM. 1. Septic shock: Secondary toe sacral decubitus ulcer, LLL pneumonia Patient was started on broad-spectrum antibiotic including cefepime, vancomycin, doxycycline, Flagyl Required pressor support with norepinephrine, has been weaned out Has been moved out of ICU ID following, appreciate recs Blood culture grew Clostridium, and eggerthelia bacteremia will need 4 weeks of cefepime and flagyl, EOT 07/26 continue cefepime, and Flagyl No need for PICC line as cefepime can be given with dialysis Status post debridement of sacral decubitus ulcer by surgery (2) CHF: Pulmonary edema seen on CXR (06/28). Patient has history of combined systolic/diastolic CHF. Fluid balance managed via dialysis that he receives Mondays, Wednesdays, Fridays. Has not missed any treatments and has been able to receive his full treatments. (3) ESRD (end stage renal disease) on dialysis: Nephrology following Dialysis as blood renal plan Monitor electrolytes Monitor blood pressure (4) Type 2 diabetes mellitus: History of type 2 diabetes complicated by ESRD, bilateral BKA, and diabetic neuropathy. Blood glucose checked t.i.d. a.c. and HS Continue with sliding scale insulin Hypoglycemia protocol in place (5) Anemia of chronic disease: Monitor H&H Transfuse for hemoglobin less than 7 6. Code status: DNR 7. DVT prophylaxis: Heparin subQ 8. Disposition: Pending placement. CM working on this. Subjective Date/time seen: 07/08/25 12:47 Interval history: 60 y/o M with PMH of iron deficiency anemia/anemia of chronic disease, pAFib, coronary artery disease s/p multiple stents and CABG, diabetes, ESRD on HD, CHF, and RISA not on CPAP presented here with altered mental status and fever. Patient was diagnosed with septic shock resulting in altered mental status, likely secondary to sacral wound. Patient was admitted to ICU initially. General surgery was consulted. Was started on cefepime, doxycycline, Flagyl. Status post debridement of the sacral wound. Blood culture grew Clostridium, Eubacterium. ID was consulted as well patient is tolerating dialysis treatment without any issues or problems; no apparent distress noted at this time; no issues/events overnight or earlier this morning; tolerating antibiotic therapy; stable hemodynamics noted. patient clinical symptoms are improving. waiting for placement, will continue to monitor. Patient is seen by ID, recommending to CPM. Review of Systems Review of Systems: All systems reviewed & are unremarkable except as noted in HPI and below ROS unobtainable: Yes unobtainable due to mental status Exam Narrative: Patient is comfortable, NAD HEENT: eyes are clear and none icteric LUNGS:CTA HEART: RR S1S2 ABD: BS+, Soft and nontender Lower extremities: no edema SKIN: nonjaundiced Neuro: grossly intact. Objective Data Vital Signs Vital Signs: Vital Signs - 24 hr 07/07/25 14:11 07/07/25 20:00 07/07/25 21:13 Temperature 36.2 C L 36.6 C Pulse Rate 70 71 Respiratory Rate 18 16 Blood Pressure 140/53 L 105/45 L Pulse Oximetry 99 96 Oxygen Delivery Room Air 07/08/25 04:47 07/08/25 09:57 Temperature 36.6 C Pulse Rate 58 L Respiratory Rate 16 Blood Pressure 124/63 Pulse Oximetry 95 Oxygen Delivery Room Air Intake/Output Intake/Output: Intake & Output 07/05/25 07/06/25 07/07/25 07/08/25 23:59 23:59 23:59 23:59 Intake Total 850 1490 290 Output Total 1000 1000 Balance -150 1490 -710 Meds/Results Medications: Active Medications Generic Name Dose Route Start Last Admin Trade Name Freq PRN Reason Stop Dose Admin Acetaminophen 650 mg 06/29/25 11:38 Acetaminophen 325 Mg Tablet PO Q6H PRN Mild Pain (1-3) or Fever Atorvastatin Calcium 40 mg 06/27/25 21:00 07/07/25 20:57 Atorvastatin 40 Mg Tablet PO 40 mg HS [facility] Administration Dextrose 12.5 gm 06/27/25 09:51 Dextrose 50% 25 Gm/50 Ml Syringe IV PUSH PRN PRN Hypoglycemia Protocol Ferrous Sulfate 325 mg 06/28/25 09:00 07/08/25 09:57 Ferrous Sulfate 325 Mg Tablet BY MOUTH 325 mg DAILY [facility] Administration Folic Acid 1 mg 06/28/25 09:00 07/08/25 09:57 Folic Acid 1 Mg Tablet PO 1 mg DAILY [facility] Administration Gabapentin 200 mg 06/27/25 21:00 07/07/25 20:57 Gabapentin 100 Mg Capsule PO 200 mg HS [facility] Administration Glucagon 1 mg 06/27/25 09:51 Glucagon For Inj 1 Mg Vial IM PRN PRN Hypoglycemia Protocol Glucose 15 gm 06/27/25 09:51 Glucose Oral Gel 15 Gm Of Glucse In 37.5 Gm Tube PO PRN PRN Hypoglycemia Protocol Heparin Sodium (Porcine) 5,000 units 06/26/25 21:00 07/08/25 09:56 Heparin Sodium 5,000 Units/Ml Vial SUB-Q 5,000 units Q12HR [facility] Administration Dextrose 1,000 mls @ 100 mls/hr 06/27/25 09:51 Dextrose 5% 1,000 Ml IVPB PRN PRN Hypoglycemia Protocol Albumin Human 50 mls @ 999 mls/hr 06/27/25 23:00 07/05/25 11:14 Albutein IVPB 07/27/25 22:59 100 mls/hr Q10M PRN Administration HYPOTENSION Cefepime HCl 2 gm/ Sodium 50 mls @ 100 mls/hr 06/30/25 18:00 07/07/25 17:59 Chloride IVPB 07/26/25 23:59 Infused MOWEFR [facility] Infusion Ibuprofen 400 mg 06/29/25 11:38 Ibuprofen 400 Mg Tablet PO Q6H PRN Pain Rated 4-6 Insulin Aspart 2 - 5 units 07/02/25 08:00 07/08/25 07:58 Insulin Aspart (*Bkc) 100 Units/Ml SUB-Q Not Given [facility] Protocol Lidocaine/Prilocaine 1 each 06/28/25 06:10 07/07/25 07:39 Lidocaine/Prilocaine Cream 2.5-2.5% Tube TOPICAL 1 each WITH DIALYSIS PRN Administration for dialysis Protocol Metronidazole 500 mg 06/30/25 14:00 07/08/25 06:19 Metronidazole 500 Mg Tablet PO 07/26/25 22:01 500 mg Q8HR [facility] Administration Midodrine 10 mg 06/27/25 13:00 07/08/25 09:57 Midodrine Hcl 10 Mg Tablet PO 10 mg TID [facility] Administration Mirtazapine 15 mg 06/27/25 21:00 07/07/25 20:57 Mirtazapine 15 Mg Tablet PO 15 mg HS [facility] Administration Mirtazapine 7.5 mg 06/27/25 21:00 07/07/25 20:57 Mirtazapine 7.5 Mg Tablet PO 7.5 mg HS [facility] Administration Pantoprazole Sodium 40 mg 06/26/25 21:00 07/08/25 09:57 Pantoprazole Sodium Iv 40 Mg Vial IV PUSH 40 mg Q12HR [facility] Administration Senna/Docusate Sodium 1 tab 06/27/25 09:01 Senna/Docusate Sodium Tablet PO BID PRN Constipation Sertraline HCl 50 mg 06/28/25 09:00 07/08/25 09:57 Sertraline Hcl 50 Mg Tablet PO 50 mg QAM [facility] Administration Sevelamer Carbonate 800 mg 06/27/25 17:00 07/03/25 16:49 Sevelamer Carbonate 800 Mg Tablet PO 800 mg On Hold: 07/04/25 08:13 DAILY@1700 [facility] Administration Sodium Chloride 20 ml 06/26/25 11:46 Central Line Flush IV PUSH PRN PRN after blood draws Sodium Hypochlorite 1 applic 06/27/25 21:00 07/08/25 09:57 Sod Hypochlorite 1/4 Strength 473 Ml TOPICAL 1 applic Q12HR [facility] Administration Zinc Sulfate 220 mg 06/28/25 09:00 07/08/25 09:57 Zinc Sulfate 220 Mg Capsule PO 220 mg QAM [facility] Administration Radiology Results: ITS Impressions Abdomen/Pelvis CT 06/26/25 07:59 IMPRESSION: 1. Decubitus wounds. 2. No evidence of osteomyelitis. 3. No evidence of associated abscess. 4. No acute abnormality within abdomen or pelvis. Chest X-Ray 07/07/25 08:08 IMPRESSION: 1. Persistent interstitial pulmonary edema and/or multifocal airspace disease. Modified Barium Swallow 07/08/25 10:20 IMPRESSION: Pharyngeal dysphagia with laryngeal penetration and aspiration with uncontrolled thin liquids. Please correlate with speech pathologist findings and specific feeding recommendations. Labs Labs: Laboratory Results - last 24 hr 07/07/25 07/07/25 07/07/25 13:15 17:10 20:56 WBC RBC Hgb Hct MCV MCH MCHC RDW Plt Count MPV % Immature Plt Fraction Sodium Potassium Chloride Carbon Dioxide Anion Gap BUN Creatinine Estim Creat Clear Calc Estimated GFR Glucose POC Capillary Glucose 142 H 232 H 195 H Calcium Phosphorus Magnesium Albumin 07/08/25 07/08/25 07/08/25 04:42 07:50 12:06 WBC 13.3 H RBC 3.77 L Hgb 11.9 L Hct 39.3 L MCV 104.2 H MCH 31.6 MCHC 30.3 L RDW 22.6 H Plt Count 121 L MPV TNP % Immature Plt Fraction 8.2 Sodium 141 Potassium 4.3 Chloride 105 Carbon Dioxide 29 Anion Gap 7 BUN 29 H D Creatinine 3.22 H Estim Creat Clear Calc Not Reportable Estimated GFR 20 L Glucose 168 H POC Capillary Glucose 183 H 187 H Calcium 8.8 Phosphorus 2.3 L Magnesium 2.3 Albumin 3.7 Quality VTE Prophylaxis VTE prophylaxis: pharmacologic ordered
--- NOTE | 2025-07-08 13:03 | P.PNNP_ITS ---
Progress Note: A&P Assessment and Plan (1) ESRD (end stage renal disease): Code(s): N18.6 - End stage renal disease Status: Chronic Assessment and Plan: * HD tomorrow * continue M/W/F schedule while hospitalized * follow electrolytes, volume status, and clearance (2) Hypotension: Code(s): I95.9 - Hypotension, unspecified Status: Acute Assessment and Plan: * some degree of chronicity with regard to this issue * on midodrine as an outpatient * suspect acute worsening due to infection (sacral decubitus ulcer + pneumonia) * associated with fever, leukocytosis, altered mental status and shortness of breath on admission * initially on vasopressor therapy but has since been weaned off * resumed on midodrine therapy (3) Decubitus ulcer: Code(s): L89.90 - Pressure ulcer of unspecified site, unspecified stage Status: Acute Assessment and Plan: * significant amount of drainage noted in association with sloughing necrotic tissue * General Surgery following * s/p debridement (down to bone) on 06/28 * on antibiotics * local wound care (wound care following) * continue supportive therapy (4) Bacteremia: Code(s): R78.81 - Bacteremia Status: Acute Assessment and Plan: * blood cultures noted: * from 06/26 - Clostridium perfringens & Eggerthella(Eubacterium) lenta * from 06/29 - no growth to date * Infectious Disease following with recommendations noted * on antibiotics * continue current therapy (5) Fluid overload: Qualifiers: Hypervolemia type: other Qualified Code(s): E87.79 - Other fluid overload Code(s): E87.70 - Fluid overload, unspecified Status: Acute Assessment and Plan: * improvement noted * as noted by imaging on presentation * likely etiology of shortness of breath on admission * fluid removal as tolerated by hemodynamics * extra session of HD on 06/26 (in ICU) * continue fluid removal as tolerated by hemodynamics * suspect outpatient dry weight needs adjustment * follow respiratory status (6) Pneumonia: Qualifiers: Laterality: left Lung location: unspecified part of lung Pneumonia type: due to unspecified organism Qualified Code(s): J18.9 - Pneumonia, unspecified organism Code(s): J18.9 - Pneumonia, unspecified organism Status: Acute Assessment and Plan: * as suggested by admission imaging * follow culture data * on antibiotics (7) Anemia: Code(s): D64.9 - Anemia, unspecified Status: Chronic Assessment and Plan: * due to ESRD and possibly worsened by acute illness * Epogen with HD * follow trend of H/H (8) Diabetes mellitus with multiple complications: Code(s): E11.8 - Type 2 diabetes mellitus with unspecified complications Status: Chronic Assessment and Plan: * follow Accu-Cheks * glycemic control per hospitalist Will continue to follow. L Subjective Date/time seen: 07/08/25 13:03 Interval history: Follow-up for end stage renal disease on hemodialysis. Tolerated dialysis treatment yesterday without any issues or problems; no acute complaints voiced at the time of my visit; no events overnight; no apparent distress to report. Exam 2 Narrative: General: WD/WN male in NAD Heart: normal S1 and S2; no rub Lungs: decreased at bases Abdomen: soft, nontender, nondistended, positive bowel sounds Extremities: no cyanosis or clubbing; trace edema; s/p bilateral BKAs Skin: warm and intact Objective Data Vital Signs Vital Signs: Vital Signs Temp Pulse Resp BP Pulse Ox O2 Del Method 07/08/25 13:00 97.7 F 97 18 106/58 L 100 07/08/25 09:57 Room Air 07/08/25 04:47 97.8 F 58 L 16 124/63 95 07/07/25 21:13 97.8 F 71 16 105/45 L 96 07/07/25 20:00 Room Air Intake/Output Intake/Output: Intake & Output 07/05/25 07/06/25 07/07/25 07/08/25 23:59 23:59 23:59 23:59 Intake Total 850 1490 290 240 Output Total 1000 1000 Balance -150 1490 -710 240 Meds/Results Medications: Active Medications Generic Name Dose Route Start Last Admin Trade Name Freq PRN Reason Stop Dose Admin Acetaminophen 650 mg 06/29/25 11:38 Acetaminophen 325 Mg Tablet PO Q6H PRN Mild Pain (1-3) or Fever Atorvastatin Calcium 40 mg 06/27/25 21:00 07/07/25 20:57 Atorvastatin 40 Mg Tablet PO 40 mg HS [facility] Administration Dextrose 12.5 gm 06/27/25 09:51 Dextrose 50% 25 Gm/50 Ml Syringe IV PUSH PRN PRN Hypoglycemia Protocol Ferrous Sulfate 325 mg 06/28/25 09:00 07/08/25 09:57 Ferrous Sulfate 325 Mg Tablet BY MOUTH 325 mg DAILY [facility] Administration Folic Acid 1 mg 06/28/25 09:00 07/08/25 09:57 Folic Acid 1 Mg Tablet PO 1 mg DAILY [facility] Administration Gabapentin 200 mg 06/27/25 21:00 07/07/25 20:57 Gabapentin 100 Mg Capsule PO 200 mg HS [facility] Administration Glucagon 1 mg 06/27/25 09:51 Glucagon For Inj 1 Mg Vial IM PRN PRN Hypoglycemia Protocol Glucose 15 gm 06/27/25 09:51 Glucose Oral Gel 15 Gm Of Glucse In 37.5 Gm Tube PO PRN PRN Hypoglycemia Protocol Heparin Sodium (Porcine) 5,000 units 06/26/25 21:00 07/08/25 09:56 Heparin Sodium 5,000 Units/Ml Vial SUB-Q 5,000 units Q12HR [facility] Administration Dextrose 1,000 mls @ 100 mls/hr 06/27/25 09:51 Dextrose 5% 1,000 Ml IVPB PRN PRN Hypoglycemia Protocol Albumin Human 50 mls @ 999 mls/hr 06/27/25 23:00 07/05/25 11:14 Albutein IVPB 07/27/25 22:59 100 mls/hr Q10M PRN Administration HYPOTENSION Cefepime HCl 2 gm/ Sodium 50 mls @ 100 mls/hr 06/30/25 18:00 07/07/25 17:59 Chloride IVPB 07/26/25 23:59 Infused MOWEFR [facility] Infusion Ibuprofen 400 mg 06/29/25 11:38 Ibuprofen 400 Mg Tablet PO Q6H PRN Pain Rated 4-6 Insulin Aspart 2 - 5 units 07/02/25 08:00 07/08/25 12:06 Insulin Aspart (*Bkc) 100 Units/Ml SUB-Q Not Given [facility] Protocol Lidocaine/Prilocaine 1 each 06/28/25 06:10 07/07/25 07:39 Lidocaine/Prilocaine Cream 2.5-2.5% Tube TOPICAL 1 each WITH DIALYSIS PRN Administration for dialysis Protocol Metronidazole 500 mg 06/30/25 14:00 07/08/25 12:52 Metronidazole 500 Mg Tablet PO 07/26/25 22:01 500 mg Q8HR [facility] Administration Midodrine 10 mg 06/27/25 13:00 07/08/25 12:51 Midodrine Hcl 10 Mg Tablet PO 10 mg TID [facility] Administration Mirtazapine 15 mg 06/27/25 21:00 07/07/25 20:57 Mirtazapine 15 Mg Tablet PO 15 mg HS [facility] Administration Mirtazapine 7.5 mg 06/27/25 21:00 07/07/25 20:57 Mirtazapine 7.5 Mg Tablet PO 7.5 mg HS [facility] Administration Pantoprazole Sodium 40 mg 06/26/25 21:00 07/08/25 09:57 Pantoprazole Sodium Iv 40 Mg Vial IV PUSH 40 mg Q12HR [facility] Administration Senna/Docusate Sodium 1 tab 06/27/25 09:01 Senna/Docusate Sodium Tablet PO BID PRN Constipation Sertraline HCl 50 mg 06/28/25 09:00 07/08/25 09:57 Sertraline Hcl 50 Mg Tablet PO 50 mg QAM [facility] Administration Sevelamer Carbonate 800 mg 06/27/25 17:00 07/03/25 16:49 Sevelamer Carbonate 800 Mg Tablet PO 800 mg On Hold: 07/04/25 08:13 DAILY@1700 [facility] Administration Sodium Chloride 20 ml 06/26/25 11:46 Central Line Flush IV PUSH PRN PRN after blood draws Sodium Hypochlorite 1 applic 06/27/25 21:00 07/08/25 09:57 Sod Hypochlorite 1/4 Strength 473 Ml TOPICAL 1 applic Q12HR [facility] Administration Zinc Sulfate 220 mg 06/28/25 09:00 07/08/25 09:57 Zinc Sulfate 220 Mg Capsule PO 220 mg QAM [facility] Administration Radiology Results: ITS Impressions Abdomen/Pelvis CT 06/26/25 07:59 IMPRESSION: 1. Decubitus wounds. 2. No evidence of osteomyelitis. 3. No evidence of associated abscess. 4. No acute abnormality within abdomen or pelvis. Chest X-Ray 07/07/25 08:08 IMPRESSION: 1. Persistent interstitial pulmonary edema and/or multifocal airspace disease. Modified Barium Swallow 07/08/25 10:20 IMPRESSION: Pharyngeal dysphagia with laryngeal penetration and aspiration with uncontrolled thin liquids. Please correlate with speech pathologist findings and specific feeding recommendations. Labs Labs: Laboratory Tests 07/08/25 04:42 07/08/25 04:42 Calcium 8.8 Phosphorus 2.3 L Magnesium 2.3 Albumin 3.7 Microbiology 06/26/25 06:22 Blood Blood Culture - Preliminary Eggerthella(Eubacterium) [place]
[2025-07-08 14:00] VITALS: BP 106/58; PULSE 97; RESP 18; TEMP 36.5; O2SAT 100
[2025-07-08] MEDS: INSULIN ASPART (*BKC) 100 UNITS/ML SUB-Q (17:29)
--- NOTE | 2025-07-08 18:06 | WPDINFPN2 ---
Progress Note: A&P Assessment and Plan (1) Decubitus ulcer: Qualifiers: Pressure injury location: sacral region Pressure injury stage: stage 4 Qualified Code(s): L89.154 - Pressure ulcer of sacral region, stage 4 Code(s): L89.90 - Pressure ulcer of unspecified site, unspecified stage Status: Acute (2) ESRD (end stage renal disease) on dialysis: Code(s): N18.6 - End stage renal disease; Z99.2 - Dependence on renal dialysis Status: Acute Assessment and Plan: ASSESSMENT: 1. sacral decubitis s/p I&D--wound down to bone; imaging neg for osteomyelitis 2. clostridium perfringers, lancefieldella and Eggerthelia bacteremia--likely 2nd to #1 3. ESRD on HD via RUE AVF 4. DM 5. afib 6. CAD s/p CABG 7. heart failure 8. penicillin allergy-->unknown reaction 9. s/p bilateral BKAs RECOMMENDATIONS repeat BCx neg Continue cefepime and Flagyl for 4 week therapy. Anticipated end of therapy would be July 26, 2025 At discharge, cefepime can be given with dialysis on HD days, so no PICC line will be needed. please send CMP, CBC, CRP, ESR to my fax at [phone] monitor WBC count and temp curve d/w pharmacy staff Pt was seen via video telehealth consult with the assistance of staff. Chart, data, and patient interview independently reviewed by me. Pt was located at [facility] while I was in my [place] office. Pt gave verbal consent. Subjective Date/time seen: 07/08/25 18:06 Interval history: no fever +leukocytosis no diarrhea feels better today Exam Narrative: abd soft NT pt on room air, NAD, non-toxic Objective Data Vital Signs Vital Signs: Vital Signs - 24 hr 07/07/25 20:00 07/07/25 21:13 07/08/25 04:47 Temperature 97.8 F 97.8 F Pulse Rate 71 58 L Respiratory Rate 16 16 Blood Pressure 105/45 L 124/63 Pulse Oximetry 96 95 Oxygen Delivery Room Air 07/08/25 09:57 07/08/25 14:00 Temperature 97.7 F Pulse Rate 97 Respiratory Rate 18 Blood Pressure 106/58 L Pulse Oximetry 100 Oxygen Delivery Room Air Intake/Output Intake/Output: Intake & Output 07/05/25 07/06/25 07/07/25 07/08/25 23:59 23:59 23:59 23:59 Intake Total 850 1490 290 240 Output Total 1000 1000 Balance -150 1490 -710 240 Meds/Results Medications: Active Medications Generic Name Dose Route Start Last Admin Trade Name Freq PRN Reason Stop Dose Admin Acetaminophen 650 mg 06/29/25 11:38 Acetaminophen 325 Mg Tablet PO Q6H PRN Mild Pain (1-3) or Fever Atorvastatin Calcium 40 mg 06/27/25 21:00 07/07/25 20:57 Atorvastatin 40 Mg Tablet PO 40 mg HS SALVADOR Administration Dextrose 12.5 gm 06/27/25 09:51 Dextrose 50% 25 Gm/50 Ml Syringe IV PUSH PRN PRN Hypoglycemia Protocol Ferrous Sulfate 325 mg 06/28/25 09:00 07/08/25 09:57 Ferrous Sulfate 325 Mg Tablet BY MOUTH 325 mg DAILY SAL[facility]ADOR Administration Folic Acid 1 mg 06/28/25 09:00 07/08/25 09:57 Folic Acid 1 Mg Tablet PO 1 mg DAILY [facility]ADOR Administration Gabapentin 200 mg 06/27/25 21:00 07/07/25 20:57 Gabapentin 100 Mg Capsule PO 200 mg HS SALVADOR Administration Glucagon 1 mg 06/27/25 09:51 Glucagon For Inj 1 Mg Vial IM PRN PRN Hypoglycemia Protocol Glucose 15 gm 06/27/25 09:51 Glucose Oral Gel 15 Gm Of Glucse In 37.5 Gm Tube PO PRN PRN Hypoglycemia Protocol Heparin Sodium (Porcine) 5,000 units 06/26/25 21:00 07/08/25 09:56 Heparin Sodium 5,000 Units/Ml Vial SUB-Q 5,000 units Q12HR [facility] Administration Dextrose 1,000 mls @ 100 mls/hr 06/27/25 09:51 Dextrose 5% 1,000 Ml IVPB PRN PRN Hypoglycemia Protocol Albumin Human 50 mls @ 999 mls/hr 06/27/25 23:00 07/05/25 11:14 Albutein IVPB 07/27/25 22:59 100 mls/hr Q10M PRN Administration HYPOTENSION Cefepime HCl 2 gm/ Sodium 50 mls @ 100 mls/hr 06/30/25 18:00 07/07/25 17:59 Chloride IVPB 07/26/25 23:59 Infused MOWEFR SALVADOR Infusion Ibuprofen 400 mg 06/29/25 11:38 Ibuprofen 400 Mg Tablet PO Q6H PRN Pain Rated 4-6 Insulin Aspart 2 - 5 units 07/02/25 08:00 07/08/25 17:29 Insulin Aspart (*Bkc) 100 Units/Ml SUB-Q 3 units WMHS SALVAD[facility] Administration Protocol Lidocaine/Prilocaine 1 each 06/28/25 06:10 07/07/25 07:39 Lidocaine/Prilocaine Cream 2.5-2.5% Tube TOPICAL 1 each WITH DIALYSIS PRN Administration for dialysis Protocol Metronidazole 500 mg 06/30/25 14:00 07/08/25 12:52 Metronidazole 500 Mg Tablet PO 07/26/25 22:01 500 mg Q8HR [facility] Administration Midodrine 10 mg 06/27/25 13:00 07/08/25 17:24 Midodrine Hcl 10 Mg Tablet PO 10 mg TID [facility]ADOR Administration Mirtazapine 15 mg 06/27/25 21:00 07/07/25 20:57 Mirtazapine 15 Mg Tablet PO 15 mg HS SALVADOR Administration Mirtazapine 7.5 mg 06/27/25 21:00 07/07/25 20:57 Mirtazapine 7.5 Mg Tablet PO 7.5 mg HS SALVADOR Administration Pantoprazole Sodium 40 mg 06/26/25 21:00 07/08/25 09:57 Pantoprazole Sodium Iv 40 Mg Vial IV PUSH 40 mg Q12HR SALVADOR Administration Senna/Docusate Sodium 1 tab 06/27/25 09:01 Senna/Docusate Sodium Tablet PO BID PRN Constipation Sertraline HCl 50 mg 06/28/25 09:00 07/08/25 09:57 Sertraline Hcl 50 Mg Tablet PO 50 mg QAM SAL[facility]ADOR Administration Sevelamer Carbonate 800 mg 06/27/25 17:00 07/03/25 16:49 Sevelamer Carbonate 800 Mg Tablet PO 800 mg On Hold: 07/04/25 08:13 DAILY@1700 SAL[facility]ADOR Administration Sodium Chloride 20 ml 06/26/25 11:46 Central Line Flush IV PUSH PRN PRN after blood draws Sodium Hypochlorite 1 applic 06/27/25 21:00 07/08/25 09:57 Sod Hypochlorite 1/4 Strength 473 Ml TOPICAL 1 applic Q12HR [facility]ADOR Administration Zinc Sulfate 220 mg 06/28/25 09:00 07/08/25 09:57 Zinc Sulfate 220 Mg Capsule PO 220 mg QAM SAL[facility]AD[facility] Administration Radiology Results: ITS Impressions Abdomen/Pelvis CT 06/26/25 07:59 IMPRESSION: 1. Decubitus wounds. 2. No evidence of osteomyelitis. 3. No evidence of associated abscess. 4. No acute abnormality within abdomen or pelvis. Chest X-Ray 07/07/25 08:08 IMPRESSION: 1. Persistent interstitial pulmonary edema and/or multifocal airspace disease. Modified Barium Swallow 07/08/25 10:20 IMPRESSION: Pharyngeal dysphagia with laryngeal penetration and aspiration with uncontrolled thin liquids. Please correlate with speech pathologist findings and specific feeding recommendations. Labs Labs: Laboratory Results - last 24 hr 07/07/25 07/08/25 07/08/25 20:56 04:42 07:50 WBC 13.3 H RBC 3.77 L Hgb 11.9 L Hct 39.3 L MCV 104.2 H MCH 31.6 MCHC 30.3 L RDW 22.6 H Plt Count 121 L MPV TNP % Immature Plt Fraction 8.2 Sodium 141 Potassium 4.3 Chloride 105 Carbon Dioxide 29 Anion Gap 7 BUN 29 H D Creatinine 3.22 H Estim Creat Clear Calc Not Reportable Estimated GFR 20 L Glucose 168 H POC Capillary Glucose 195 H 183 H Calcium 8.8 Phosphorus 2.3 L Magnesium 2.3 Albumin 3.7 07/08/25 07/08/25 12:06 17:26 WBC RBC Hgb Hct MCV MCH MCHC RDW Plt Count MPV % Immature Plt Fraction Sodium Potassium Chloride Carbon Dioxide Anion Gap BUN Creatinine Estim Creat Clear Calc Estimated GFR Glucose POC Capillary Glucose 187 H 275 H Calcium Phosphorus Magnesium Albumin
[2025-07-08] MEDS: MIRTAZAPINE 15 MG TABLET PO (20:33)
[2025-07-08] MEDS: GABAPENTIN 100 MG CAPSULE 200 MG PO (20:33)
[2025-07-08] MEDS: ATORVASTATIN 40 MG TABLET PO (20:33)
[2025-07-08] MEDS: MIRTAZAPINE 7.5 MG TABLET PO (20:33)
[2025-07-08 20:54] VITALS: BP 128/57; PULSE 60; RESP 16; TEMP 36.4; O2SAT 98
[2025-07-08 21:41] VITALS: O2SAT 98
[2025-07-09] VITALS (20 sets, daily range): BP systolic 87–141; BP diastolic 49–64; PULSE 58–71; RESP 16–18; TEMP 36.4–37; O2SAT 97–100
[2025-07-09 05:23] LABS: Hematocrit 37.9 % (42.0-52.0); Hemoglobin 11.4 g/dL (14.0-18.0); Mean Corpuscular HGB Conc 30.1 g/dl (32-36); Mean Corpuscular Hemoglobin 31.1 pg (26-34); Mean Corpuscular Volume 103.3 fl (80-100); Platelet Count Result 109 k/mm3 (150-375); Red Blood Count 3.67 M/mm3 (4.6-6.20); White Blood Count 11.3 K/mm3 (4.5-10.0)
[2025-07-09 05:49] LABS: Albumin Level 3.5 g/dL (3.5-5.1); Anion Gap 11 mmol/L (4-12); Blood Urea Nitrogen 49 mg/dL (9-20); Calcium 8.6 mg/dL (8.4-10.2); Carbon Dioxide 23 mmol/L (22-30); Chloride 107 mmol/L (98-107); Estimated Glomerular Filt Rate 14; Glucose 130 mg/dL (65-110); Magnesium 2.2 mg/dL (1.6-2.3); Potassium 4.4 mmol/L (3.4-5.0); Sodium 141 mmol/L (137-145)
[2025-07-09] MEDS: FERROUS SULFATE 325 MG TABLET BY MOUTH (08:12)
[2025-07-09] MEDS: SERTRALINE HCL 50 MG TABLET PO (08:12)
[2025-07-09] MEDS: MIDODRINE HCL 10 MG TABLET PO ×2 (08:12→13:31)
[2025-07-09] MEDS: PANTOPRAZOLE SODIUM IV 40 MG VIAL IV PUSH (08:12)
[2025-07-09] MEDS: FOLIC ACID 1 MG TABLET PO (08:12)
[2025-07-09] MEDS: ZINC SULFATE 220 MG CAPSULE PO (08:12)
--- NOTE | 2025-07-09 09:31 | P.PNNP_ITS ---
Progress Note: A&P Assessment and Plan (1) ESRD (end stage renal disease): Code(s): N18.6 - End stage renal disease Status: Chronic Assessment and Plan: * HD today * continue M/W/F schedule while hospitalized * follow electrolytes, volume status, and clearance (2) Hypotension: Code(s): I95.9 - Hypotension, unspecified Status: Acute Assessment and Plan: * some degree of chronicity with regard to this issue * on midodrine as an outpatient * suspect acute worsening due to infection (sacral decubitus ulcer + pneumonia) * associated with fever, leukocytosis, altered mental status and shortness of breath on admission * initially on vasopressor therapy but has since been weaned off * resumed on midodrine therapy (3) Decubitus ulcer: Code(s): L89.90 - Pressure ulcer of unspecified site, unspecified stage Status: Acute Assessment and Plan: * significant amount of drainage noted in association with sloughing necrotic tissue * General Surgery following * s/p debridement (down to bone) on 06/28 * on antibiotics * local wound care (wound care following) * continue supportive therapy (4) Bacteremia: Code(s): R78.81 - Bacteremia Status: Acute Assessment and Plan: * blood cultures noted: * from 06/26 - Clostridium perfringens & Eggerthella(Eubacterium) lenta * from 06/29 - no growth to date * Infectious Disease following with recommendations noted * on antibiotics * continue current therapy (5) Fluid overload: Qualifiers: Hypervolemia type: other Qualified Code(s): E87.79 - Other fluid overload Code(s): E87.70 - Fluid overload, unspecified Status: Acute Assessment and Plan: * improvement noted if not resolved * as noted by imaging on presentation * likely etiology of shortness of breath on admission * fluid removal as tolerated by hemodynamics * extra session of HD on 06/26 (in ICU) * continue fluid removal as tolerated by hemodynamics * suspect outpatient dry weight needs adjustment * follow respiratory status (6) Pneumonia: Qualifiers: Laterality: left Lung location: unspecified part of lung Pneumonia type: due to unspecified organism Qualified Code(s): J18.9 - Pneumonia, unspecified organism Code(s): J18.9 - Pneumonia, unspecified organism Status: Acute Assessment and Plan: * as suggested by admission imaging * follow culture data * on antibiotics (7) Anemia: Code(s): D64.9 - Anemia, unspecified Status: Chronic Assessment and Plan: * due to ESRD and possibly worsened by acute illness * Epogen with HD * follow trend of H/H (8) Diabetes mellitus with multiple complications: Code(s): E11.8 - Type 2 diabetes mellitus with unspecified complications Status: Chronic Assessment and Plan: * follow Accu-Cheks * glycemic control per hospitalist Will continue to follow. Subjective Date/time seen: 07/09/25 09:31 Interval history: Follow-up for end stage renal disease on hemodialysis. Tolerating dialysis treatment at the time of my visit (seen on HD at 9:20am); BP running low but remains asymptomatic; no apparent distress voiced when seen; no issues/events overnight or earlier this morning; hoping for discharge soon. Exam Narrative: General: WD/WN male in NAD Heart: normal S1 and S2; no rub Lungs: decreased at bases Abdomen: soft, nontender, nondistended, positive bowel sounds Extremities: no cyanosis or clubbing; trace edema; s/p bilateral BKAs Skin: no rash or nodules Objective Data Vital Signs Vital Signs: Vital Signs Temp Pulse Resp BP Pulse Ox O2 Del Method 07/09/25 09:30 61 87/54 L 07/09/25 09:15 61 98/49 L 07/09/25 09:00 60 109/59 L 07/09/25 08:45 60 135/60 07/09/25 08:31 60 140/64 07/09/25 08:23 97.7 F 62 18 127/63 99 07/09/25 04:45 97.7 F 60 16 141/55 H 100 07/08/25 21:41 98 Room Air 07/08/25 20:54 97.6 F 60 16 128/57 L 98 07/08/25 20:00 Room Air 07/08/25 14:00 97.7 F 97 18 106/58 L 100 Intake/Output Intake/Output: Intake & Output 07/06/25 07/07/25 07/08/25 07/09/25 23:59 23:59 23:59 23:59 Intake Total 1490 290 540 460 Output Total 1000 Balance 1490 -710 540 460 Meds/Results Medications: Active Medications Generic Name Dose Route Start Last Admin Trade Name Freq PRN Reason Stop Dose Admin Acetaminophen 650 mg 06/29/25 11:38 Acetaminophen 325 Mg Tablet PO Q6H PRN Mild Pain (1-3) or Fever Atorvastatin Calcium 40 mg 06/27/25 21:00 07/08/25 20:33 Atorvastatin 40 Mg Tablet PO 40 mg HS SALVADOR Administration Dextrose 12.5 gm 06/27/25 09:51 Dextrose 50% 25 Gm/50 Ml Syringe IV PUSH PRN PRN Hypoglycemia Protocol Ferrous Sulfate 325 mg 06/28/25 09:00 07/09/25 08:12 Ferrous Sulfate 325 Mg Tablet BY MOUTH 325 mg DAILY [facility]ADOR Administration Folic Acid 1 mg 06/28/25 09:00 07/09/25 08:12 Folic Acid 1 Mg Tablet PO 1 mg DAILY SAL[facility]ADOR Administration Gabapentin 200 mg 06/27/25 21:00 07/08/25 20:33 Gabapentin 100 Mg Capsule PO 200 mg HS SALVADOR Administration Glucagon 1 mg 06/27/25 09:51 Glucagon For Inj 1 Mg Vial IM PRN PRN Hypoglycemia Protocol Glucose 15 gm 06/27/25 09:51 Glucose Oral Gel 15 Gm Of Glucse In 37.5 Gm Tube PO PRN PRN Hypoglycemia Protocol Heparin Sodium (Porcine) 5,000 units 06/26/25 21:00 07/09/25 08:12 Heparin Sodium 5,000 Units/Ml Vial SUB-Q 5,000 units Q12HR [facility] Administration Dextrose 1,000 mls @ 100 mls/hr 06/27/25 09:51 Dextrose 5% 1,000 Ml IVPB PRN PRN Hypoglycemia Protocol Albumin Human 50 mls @ 999 mls/hr 06/27/25 23:00 07/05/25 11:14 Albutein IVPB 07/27/25 22:59 100 mls/hr Q10M PRN Administration HYPOTENSION Cefepime HCl 2 gm/ Sodium 50 mls @ 100 mls/hr 06/30/25 18:00 07/07/25 17:59 Chloride IVPB 07/26/25 23:59 Infused MOWEFR [facility]ADOR Infusion Ibuprofen 400 mg 06/29/25 11:38 Ibuprofen 400 Mg Tablet PO Q6H PRN Pain Rated 4-6 Insulin Aspart 2 - 5 units 07/02/25 08:00 07/09/25 08:10 Insulin Aspart (*Bkc) 100 Units/Ml SUB-Q Not Given WMHS [facility]ADOR Protocol Lidocaine/Prilocaine 1 each 06/28/25 06:10 07/07/25 07:39 Lidocaine/Prilocaine Cream 2.5-2.5% Tube TOPICAL 1 each WITH DIALYSIS PRN Administration for dialysis Protocol Metronidazole 500 mg 06/30/25 14:00 07/09/25 05:26 Metronidazole 500 Mg Tablet PO 07/26/25 22:01 500 mg Q8HR [facility] Administration Midodrine 10 mg 06/27/25 13:00 07/09/25 08:12 Midodrine Hcl 10 Mg Tablet PO 10 mg TID [facility]ADOR Administration Mirtazapine 15 mg 06/27/25 21:00 07/08/25 20:33 Mirtazapine 15 Mg Tablet PO 15 mg HS SALVADOR Administration Mirtazapine 7.5 mg 06/27/25 21:00 07/08/25 20:33 Mirtazapine 7.5 Mg Tablet PO 7.5 mg HS SALVADOR Administration Pantoprazole Sodium 40 mg 06/26/25 21:00 07/09/25 08:12 Pantoprazole Sodium Iv 40 Mg Vial IV PUSH 40 mg Q12HR [facility]ADOR Administration Senna/Docusate Sodium 1 tab 06/27/25 09:01 Senna/Docusate Sodium Tablet PO BID PRN Constipation Sertraline HCl 50 mg 06/28/25 09:00 07/09/25 08:12 Sertraline Hcl 50 Mg Tablet PO 50 mg QAM [facility]ADOR Administration Sevelamer Carbonate 800 mg 06/27/25 17:00 07/03/25 16:49 Sevelamer Carbonate 800 Mg Tablet PO 800 mg On Hold: 07/04/25 08:13 DAILY@1700 [facility]OR Administration Sodium Chloride 20 ml 06/26/25 11:46 Central Line Flush IV PUSH PRN PRN after blood draws Sodium Hypochlorite 1 applic 06/27/25 21:00 07/08/25 20:36 Sod Hypochlorite 1/4 Strength 473 Ml TOPICAL 1 applic Q12HR [facility]ADOR Administration Zinc Sulfate 220 mg 06/28/25 09:00 07/09/25 08:12 Zinc Sulfate 220 Mg Capsule PO 220 mg QAM [facility]ADOR Administration Radiology Results: ITS Impressions Abdomen/Pelvis CT 06/26/25 07:59 IMPRESSION: 1. Decubitus wounds. 2. No evidence of osteomyelitis. 3. No evidence of associated abscess. 4. No acute abnormality within abdomen or pelvis. Chest X-Ray 07/07/25 08:08 IMPRESSION: 1. Persistent interstitial pulmonary edema and/or multifocal airspace disease. Modified Barium Swallow 07/08/25 10:20 IMPRESSION: Pharyngeal dysphagia with laryngeal penetration and aspiration with uncontrolled thin liquids. Please correlate with speech pathologist findings and specific feeding recommendations. Labs Labs: Laboratory Results - last 24 hr 07/08/25 07/08/25 07/08/25 12:06 17:26 20:51 WBC RBC Hgb Hct MCV MCH MCHC RDW Plt Count MPV Sodium Potassium Chloride Carbon Dioxide Anion Gap BUN Creatinine Estim Creat Clear Calc Estimated GFR Glucose POC Capillary Glucose 187 H 275 H 186 H Calcium Phosphorus Magnesium Albumin 07/09/25 07/09/25 04:24 07:47 WBC 11.3 H RBC 3.67 L Hgb 11.4 L Hct 37.9 L MCV 103.3 H MCH 31.1 MCHC 30.1 L RDW 22.5 H Plt Count 109 L MPV 13.0 H Sodium 141 Potassium 4.4 Chloride 107 Carbon Dioxide 23 Anion Gap 11 BUN 49 H D Creatinine 4.29 H Estim Creat Clear Calc Not Reportable Estimated GFR 14 L Glucose 130 H POC Capillary Glucose 150 H Calcium 8.6 Phosphorus 3.4 Magnesium 2.2 Albumin 3.5
--- NOTE | 2025-07-09 12:11 | P.DS_ITS ---
DS: Admitting Diagnosis Discharge Date 06/08/25 Admitting Diagnosis AMS, Fever DS: Discharge Diagnosis Discharge Diagnosis (1) Shock: Code(s): R57.9 - Shock, unspecified Status: Acute (2) Pulmonary edema: Qualifiers: Chronicity: acute Qualified Code(s): J81.0 - Acute pulmonary edema Code(s): J81.1 - Chronic pulmonary edema Status: Acute (3) Pneumonia: Qualifiers: Laterality: left Lung location: unspecified part of lung Pneumonia type: due to unspecified organism Qualified Code(s): J18.9 - Pneumonia, unspecified organism Code(s): J18.9 - Pneumonia, unspecified organism Status: Acute (4) Decubitus ulcer: Code(s): L89.90 - Pressure ulcer of unspecified site, unspecified stage Status: Acute (5) ESRD (end stage renal disease) on dialysis: Code(s): N18.6 - End stage renal disease; Z99.2 - Dependence on renal dialysis Status: Acute (6) Type 2 diabetes mellitus: Qualifiers: Diabetes mellitus halfway insulin use: without cytology technologist use Diabetes mellitus complication status: with kidney complications Diabetes mellitus complication detail: with chronic kidney disease Chronic kidney disease stage: on chronic dialysis Qualified Code(s): E11.22 - Type 2 diabetes mellitus with diabetic chronic kidney disease; N18.6 - End stage renal disease; Z99.2 - Dependence on renal dialysis Code(s): E11.9 - Type 2 diabetes mellitus without complications Status: Chronic (7) Anemia of chronic disease: Code(s): D63.8 - Anemia in other chronic diseases classified elsewhere Status: Chronic Plan 60 y/o M with PMH of iron deficiency anemia/anemia of chronic disease, pAFib, coronary artery disease s/p multiple stents and CABG, diabetes, ESRD on HD, CHF, and RISA not on CPAP presented here with altered mental status and fever. Simon kim was diagnosed with septic shock resulting in altered mental status, likely secondary to sacral wound. Patient was admitted to ICU initially. General surgery was consulted. Was started on cefepime, doxycycline, Flagyl. Status post debridement of the sacral wound. Blood culture grew Clostridium, Eubacterium. ID was consulted as well patient is tolerating dialysis treatment without any issues or problems; no apparent distress noted at this time; no issues/events overnight or earlier this morning; tolerating antibiotic therapy; stable hemodynamics noted. patient clinical symptoms are improving. waiting for placement, will continue to monitor. Patient is seen by ID, recommending to CPM. 1. Septic shock: Secondary toe sacral decubitus ulcer, LLL pneumonia Patient was started on broad-spectrum antibiotic including cefepime, vancomycin, doxycycline, Flagyl Required pressor support with norepinephrine, has been weaned out Has been moved out of ICU ID following, appreciate recs Blood culture grew Clostridium, and eggerthelia bacteremia will need 4 weeks of cefepime and flagyl, EOT 07/26 continue cefepime, and Flagyl No need for PICC line as cefepime can be given with dialysis Status post debridement of sacral decubitus ulcer by surgery (2) CHF: Pulmonary edema seen on CXR (06/28). Patient has history of combined systolic/diastolic CHF. Fluid balance managed via dialysis that he receives Mondays, Wednesdays, Fridays. Has not missed any treatments and has been able to receive his full treatments. (3) ESRD (end stage renal disease) on dialysis: Nephrology following Dialysis as blood renal plan Monitor electrolytes Monitor blood pressure (4) Type 2 diabetes mellitus: History of type 2 diabetes complicated by ESRD, bilateral BKA, and diabetic neuropathy. Blood glucose checked t.i.d. a.c. and HS Continue with sliding scale insulin Hypoglycemia protocol in place (5) Anemia of chronic disease: Monitor H&H Transfuse for hemoglobin less than 7 6. Code status: DNR 7. DVT prophylaxis: Heparin subQ 8. Disposition: Pending placement. CM working on this. DS: Summary Hospital Course Hospital Course: patient presented with fever and AMS was found to be in a septic shock: and admitted into ICU, Secondary toe sacral decubitus ulcer, LLL pneumonia Patient was started on broad-spectrum antibiotic including cefepime, vancomycin, doxycycline, Flagyl Required pressor support with norepinephrine, has been weaned out Has been moved out of ICU ID following, appreciate recs Blood culture grew Clostridium, and eggerthelia bacteremia will need 4 weeks of cefepime and flagyl, EOT 07/26 continue cefepime, and Flagyl No need for PICC line as cefepime can be given with dialysis Status post debridement of sacral decubitus ulcer by surgery PMH of iron deficiency anemia/anemia of chronic disease, pAFib, coronary artery disease s/p multiple stents and CABG, diabetes, ESRD on HD, CHF, and RISA not on CPAP presented here with altered mental status and fever. Patient was diagnosed with septic shock resulting in altered mental status, likely secondary to sacral wound. Patient was admitted to ICU initially. General surgery was consulted. Was started on cefepime, doxycycline, Flagyl. Status post debridement of the sacral wound. Blood culture grew Clostridium, Eubacterium. ID was consulted as well and recommended that patient will need IV Cefepime for total of 4 weeks, patient is now his baseline, will discharge back to his NH, he will receive his IV abx during HD. patient is clinically stable, will discharge patient Time Spent with Patient Time attestation: Total time spent providing and/or coordinating discharge services: Exam Narrative: Patient is comfortable, NAD HEENT: eyes are clear and none icteric LUNGS:CTA HEART: RR S1S2 ABD: BS+, Soft and nontender Lower extremities: no edema SKIN: nonjaundiced Neuro: grossly intact. DS: Data Data Completed and Pending Labs on day of discharge: Labs from last 24 hours 07/09/25 07/09/25 07/08/25 07:47 04:24 20:51 WBC 11.3 H RBC 3.67 L Hgb 11.4 L Hct 37.9 L MCV 103.3 H MCH 31.1 MCHC 30.1 L RDW 22.5 H Plt Count 109 L MPV 13.0 H Sodium 141 Potassium 4.4 Chloride 107 Carbon Dioxide 23 Anion Gap 11 BUN 49 H D Creatinine 4.29 H Estim Creat Clear Calc Not Reportable Estimated GFR 14 L Glucose 130 H POC Capillary Glucose 150 H 186 H Calcium 8.6 Phosphorus 3.4 Magnesium 2.2 Albumin 3.5 07/08/25 07/08/25 17:26 12:06 WBC RBC Hgb Hct MCV MCH MCHC RDW Plt Count MPV Sodium Potassium Chloride Carbon Dioxide Anion Gap BUN Creatinine Estim Creat Clear Calc Estimated GFR Glucose POC Capillary Glucose 275 H 187 H Calcium Phosphorus Magnesium Albumin Preliminary micro results at discharge 06/26/25 06:22 Blood Culture - Preliminary Blood Eggerthella(Eubacterium) lenta Discharge Plan Discharge Attending physician on discharge: López Espinosa Consulting providers: Yuriy Sarkar; Jimmie Almodovar; Jeremias Little; Christin Sandoval; Karen Christianson; Nasim Gee; Rosio Najera; Jone Bay; Reji Collins; Dean Melgar; Augustus Rees; Delia Davenport; Frandy Gregorio; Leonard Christine; Jeffry Lynn; Zeferino Granados Discharging Clinician: Jersey Garsia Patient Disposition: NH Senior Living/Asst Living Activity: as tolerated Diet: renal Discharge Instructions: Continue cefepime and Flagyl for 4 week therapy. Anticipated end of therapy would be July 26, 2025 At discharge, cefepime can be given with dialysis on HD days, so no PICC line will be needed. 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 Change twice daily, or PRN for fecal saturation Diet-Minced and moist Renal diet with mildly thickened liquids Patient Instructions: Antibiotic Form, Hypotension (GEN), End Stage Kidney Disease (GEN), Removal of a Central Line, PICC, or Midline Catheter (GEN) Patient Language: Swedish Stand Alone Forms: General Discharge Information Follow-up/Referrals: Will,MD Theodore [Primary Care Provider, Unknown] Christin Sandoval MD [Physician, Infectious Disease] Jimmie Almodovar MD [Physician, Nephrology] Discharge Medications: New metronidazole 500 mg Tablet 500 mg PO Q8HR Qty: 30 0RF lidocaine-prilocaine 2.5-2.5 % Cream 0.5 g topical WITH DIALYSIS PRN (Reason: for dialysis) Qty: 30 0RF Dakin's Solution 0.125 % Solution 1 applic topical Q12HR Qty: 100 0RF Continued ferrous sulfate 325 mg (65 mg iron) Tablet 325 mg PO DAILY nitroglycerin 0.4 mg Tablet, Sublingual 0.4 mg SUBLINGUAL Q5-15M PRN (Reason: Chest Pain) Rx Instructions: 3 dose max atorvastatin [Lipitor] 40 mg Tablet 40 mg PO HS tamsulosin [Flomax] 0.4 mg Capsule 0.4 mg PO DAILY Rx Instructions: takes with evening meal folic acid 1 mg Tablet 1 mg PO DAILY gabapentin 100 mg Tablet 200 mg PO HS sevelamer carbonate 800 mg Tablet 800 mg PO DAILY@1700 mirtazapine 15 mg tablet 15 mg PO HS sertraline 50 mg tablet 50 mg PO QAM Tradjenta 5 mg tablet 5 mg PO DAILY midodrine 10 mg Tablet 10 mg PO BID Patient Comments: hold if systolic bp is higher than 90 or diastolic greater than 60 Rx Instructions: takes at 0800 and 1400 acetaminophen [Tylenol] 325 mg Tablet 650 mg PO Q6H PRN (Reason: Pain (Scale Score 1-3)) sennosides-docusate sodium [Senna Plus] 8.6-50 mg Tablet 1 tablet PO BID PRN (Reason: Constipation) naloxone 4 mg/actuation spray,non-aerosol 1 spray INTRANASAL Q3M PRN (Reason: Opioid Overdose) mirtazapine 7.5 mg tablet 7.5 mg PO HS Rx Instructions: with 15mg tab famotidine 20 mg tablet 20 mg PO Q12H tizanidine 2 mg tablet 2 mg PO Q12H Rx Instructions: Mon, Sat, Fri ascorbic acid (vitamin C) 500 mg tablet 500 mg PO Q12H zinc sulfate 220 mg capsule 220 mg PO DAILY Nephro-[place] 0.8 mg tablet 1 tablet PO DAILY aspirin 325 mg Tablet,Delayed Release (Dr/Ec) 325 mg PO QAM Qty: 30 0RF diphenoxylate-atropine [Lomotil] 2.5-0.025 mg Tablet 2 tablet PO TID PRN (Reason: Diarrhea) Qty: 15 0RF Rx Instructions: do not exceed 10 days consecutively tramadol 50 mg tablet 50 mg PO Q4H PRN (Reason: Pain (Scale Score 4-6)) Qty: 15 0RF Santyl 250 unit/gram ointment 1 applic TOPICAL DAILY tizanidine 2 mg tablet 2 mg PO TID Rx Instructions: On Saturday, Saturday, , and Saturday Date of admission: 06/26/25 13:47 Primary Care Provider: WillTheodore Admitting Provider: López Espinosa Attending physician on admission: Jersey Garsia Condition: Stable
[2025-07-09] MEDS: SOD HYPOCHLORITE 1/4 STRENGTH 473 ML 1 APPLIC TOPICAL (13:32)
[2025-07-09] MEDS: CEFEPIME 2 GM in SODIUM CHLORIDE 0.9% IV 50 ML 100 ML IVPB (14:49)
== END 2025-07-09 16:40 | DRG 853 ==
LOC: ANHED 07:24 → ANHICU 14:00 → ANH2MED 06-28 07:06 → ANHICU 07-12 08:26
PROVIDERS: Internal Medicine; Internal Medicine Infectious Disease; Internal Medicine Nephrology; Student in an Organized Health Care Education/Training Program; Surgery; Admitting Provider Internal Medicine; Emergency Provider Emergency Medicine; PCP Internal Medicine; Visit Provider Family Medicine
PROC: 0KBN0ZZ Excision of Right Hip Muscle, Open Approach (ICD-10-PCS; principal; 2025-06-28 15:00)
DX: A41.9 Sepsis, unspecified organism (principal); E43 Unspecified severe protein-calorie malnutrition; J18.9 Pneumonia, unspecified organism; L89.154 Pressure ulcer of sacral region, stage 4; N18.6 End stage renal disease; R65.21 Severe sepsis with septic shock; J96.01 Acute respiratory failure with hypoxia; I50.42 Chronic combined systolic (congestive) and diastolic (congestive) heart failure; E11.22 Type 2 diabetes mellitus with diabetic chronic kidney disease; E11.42 Type 2 diabetes mellitus with diabetic polyneuropathy; Z66 Do not resuscitate; D50.9 Iron deficiency anemia, unspecified; I48.0 Paroxysmal atrial fibrillation; I25.10 Atherosclerotic heart disease of native coronary artery without angina pectoris; E78.5 Hyperlipidemia, unspecified; G47.33 Obstructive sleep apnea (adult) (pediatric); D63.1 Anemia in chronic kidney disease; D69.6 Thrombocytopenia, unspecified; J44.9 Chronic obstructive pulmonary disease, unspecified; F41.9 Anxiety disorder, unspecified; F32.A Depression, unspecified; B96.7 Clostridium perfringens [C. perfringens] as the cause of diseases classified elsewhere; B96.89 Other specified bacterial agents as the cause of diseases classified elsewhere; Z99.2 Dependence on renal dialysis; Z95.5 Presence of coronary angioplasty implant and graft; Z95.1 Presence of aortocoronary bypass graft; Z96.1 Presence of intraocular lens; Z98.49 Cataract extraction status, unspecified eye; Z89.512 Acquired absence of left leg below knee; Z89.511 Acquired absence of right leg below knee; Z87.891 Personal history of nicotine dependence; E66.9 Obesity, unspecified; Z68.35 Body mass index [BMI] 35.0-35.9, adult
CPT/HCPCS: 36415; 36556; 36600; 71045; 74177; 74230; 80053; 80069; 80202; 82140; 82375; 82550; 82805; 82948; 83050; 83605; 83735; 83880; 84100; 85018; 85025; 85027; 85055; 85610; 85652; 85730; 86140; 86706; 87040; 87186; 87340; 87493; 87641; 92526; 92610; 92611; 93005; 96365; 96366; 96367; 99291; A9270; C1751; G0257; J0692; J0696; J1644; J1815; J1836; J2250; J2371; J2405; J2470; J2704; J3010; J3373; J7030; J7040; J7050; J7060; P9047; Q5105; Q9967

== ENCOUNTER 2025-08-19 11:52 | Emergency (ER) | payer MEDICARE, SELFPAY ==
[2025-08-19] VITALS (7 sets, daily range): BP systolic 100–124; BP diastolic 39–90; PULSE 45–88; RESP 14–18; TEMP 36.4–36.6; O2SAT 95–99
--- NOTE | ~2025-08-19 | CT_ITS ---
EXAMINATION: CT pelvis w con COMPARISON: None HISTORY: sacral wound, poss osteo TECHNIQUE: Axial images were obtained with IV contrast. Sagittal, coronal reconstruction images were obtained from the axial views. Omnipaque 370, [address] scan performed using dose optimization techniques including the following automated exposure control; adjustment of mA and/or kV; use of iterative reconstruction technique. Automatic exposure control was used to reduce radiation dose. Permanent radiation dose record is archived to PACS. FINDINGS: The anterior abdominal wall soft tissues appear unremarkable. There is stranding within the soft tissues posteriorly abutting the left inferior pubic ramus and the sacrum and coccyx with stranding in subcutaneous posterior breast consistent with sacral decubitus ulcer abutting the coccyx although there is no rim- enhancing soft tissue abscess appreciated. There are severe degenerative changes noted within the right fracture of the proximal right femur. No acute fracture or dislocation identified. There are sclerotic changes noted of the sacrum and coccyx suspicious for chronic osteomyelitis. There are severe degenerative changes of the lumbar spine Atherosclerotic changes of the aorta. No aneurysm or lymphadenopathy. The bladder appears distended with trabeculation of the bladder wall. There is no free fluid. Nonspecific minimal stranding in the presacral space. The visualized bowel and mesentery otherwise appeared normal. IMPRESSION: Sacral decubitus ulcer with cellulitis and probable chronic osteomyelitis. Incidental findings above Reviewed, dictated and finalized at location P. [facility] IMPRESSION: Sacral decubitus ulcer with cellulitis and probable chronic osteomy elitis. Incidental findings above
--- NOTE | 2025-08-19 14:01 | ED.WOUNDLAC ---
HPI - Wound/Laceration General Chief Complaint: Wound/Laceration <Isi Cuadra PA-C - Last Filed: 08/19/25 17:58> Stated Complaint: bedsore <Isi Cuadra PA-C - Last Filed: 08/19/25 17:58> Time Seen by Provider: 08/19/25 14:01 <Isi Cuadra PA-C - Last Filed: 08/19/25 17:58> Focused HPI: This is a 60 year old male that presents to the ER for a sore on his tailbone. Reports has been present for months. Reports he has been getting wound care at his facility, but the wound has continued to worsen GENERAL: Chronically ill-appearing, well-nourished, and in no acute distress. HEAD: Normocephalic, atraumatic. CHEST: No respiratory distress. HEART: Regular rate NEURO: ?Alert and oriented x3. Patient screened in triage and initial orders placed.? ?Additional care and disposition to be based upon?diagnostic testing and treatment. <Isi Cuadra PA-C - Last Filed: 08/19/25 17:58> History of Present Illness HPI narrative: Agree with HPI. Patient has mild pain to the area at this time. [facility] reportedly concerned that it continues to worsen prompting evaluation at the ED. <Paulo Galvez DO - Last Filed: 08/19/25 17:50> Related Data Home Medications: Home Medications ?Medication ?Instructions ?Recorded ?Confirmed ?Last Taken ?Type ferrous sulfate 325 mg (65 mg 325 mg PO DAILY 06/01/20 06/26/25 06/25/25 08:00 History iron) tablet nitroglycerin 0.4 mg sublingual 0.4 mg sublingual Q5-15M PRN Chest 06/01/20 06/26/25 Unknown History tablet Pain atorvastatin 40 mg tablet (Lipitor) 40 mg PO HS 12/23/20 06/26/25 06/25/25 23:00 History folic acid 1 mg tablet 1 mg PO DAILY 12/23/20 06/26/25 06/25/25 08:00 History gabapentin 100 mg tablet 200 mg PO HS 12/23/20 06/26/25 06/25/25 23:00 History sevelamer carbonate 800 mg tablet 800 mg PO DAILY@1700 12/23/20 06/26/25 06/25/25 23:00 History tamsulosin 0.4 mg capsule (Flomax) 0.4 mg PO DAILY 12/23/20 06/26/25 06/25/25 23:00 History linagliptin 5 mg tablet (Tradjenta) 5 mg PO DAILY 01/13/23 06/26/25 06/25/25 08:00 History mirtazapine 15 mg tablet 15 mg PO HS 01/13/23 06/26/25 06/25/25 23:00 History sertraline 50 mg tablet 50 mg PO QAM 01/13/23 06/26/25 06/26/25 08:00 History midodrine 10 mg tablet 10 mg PO BID 09/17/23 06/26/25 06/25/25 11:20 History acetaminophen 325 mg tablet 650 mg PO Q6H PRN Pain (Scale 10/29/23 06/26/25 04/19/25 08:45 History (Tylenol) Score 1-3) 650 mg naloxone 4 mg/actuation nasal spray 1 spray intranasal Q3M PRN Opioid 10/29/23 06/26/25 Unknown History Overdose sennosides 8.6 mg-docusate sodium 1 tablet PO BID PRN Constipation 10/29/23 06/26/25 Unknown History 50 mg tablet (Senna Plus) ascorbic acid (vitamin C) 500 mg 500 mg PO Q12H 03/10/25 06/26/25 06/25/25 08:00 History tablet famotidine 20 mg tablet 20 mg PO Q12H 03/10/25 06/26/25 06/25/25 23:00 History mirtazapine 7.5 mg tablet 7.5 mg PO HS 03/10/25 06/26/25 06/25/25 23:00 History tizanidine 2 mg tablet 2 mg PO Q12H 03/10/25 06/26/25 06/25/25 23:00 History vitamin B complex-vitamin C-folic 1 tablet PO DAILY 03/10/25 06/26/25 06/26/25 08:00 History acid 0.8 mg tablet (Nephro-Savannah) zinc sulfate 220 mg capsule 220 mg PO DAILY 03/10/25 06/26/25 06/25/25 08:00 History collagenase clostridium histo. 250 1 applic topical DAILY 06/26/25 06/26/25 06/26/25 08:45 History unit/gram topical ointment (Santyl) tizanidine 2 mg tablet 2 mg PO TID 06/26/25 06/26/25 06/24/25 20:00 History <Isi Cuadra PA-C - Last Filed: 08/19/25 17:58> Allergies/Adverse Reactions: Allergies Allergy/AdvReac Type Severity Reaction Status Date / Time Penicillins Allergy Unknown Unknown Verified 06/28/25 15:20 bee venom protein (honey bee) Allergy Swelling Verified 06/28/25 15:20 <Isi Cuadra PA-C - Last Filed: 08/19/25 17:58> Review of Systems Review of Systems: All systems reviewed & are unremarkable except as noted in HPI and below <Paulo Galvez DO - Last Filed: 08/19/25 17:50> [facility] Past Medical History Medical History: Medical History Type 2 diabetes mellitus COPD (chronic obstructive pulmonary disease) Intracardiac thrombus PVD (peripheral vascular disease) Coronary artery disease History of multiple stents and 4 vessel bypass. Combined systolic and diastolic congestive heart failure Iron deficiency anemia MRSA infection Clostridium difficile diarrhea Paroxysmal atrial fibrillation Transient atrial fibrillation following bypass surgery. Hyperlipidemia End-stage renal disease on hemodialysis Anxiety and depression Obstructive sleep apnea does not use a CPAP Anemia of chronic disease Diabetic nephropathy Diabetic peripheral neuropathy Arthritis <Isi Cuadra PA-C - Last Filed: 08/19/25 17:58> Surgical History Surgical History: Surgical History History of right below knee amputation History of five vessel coronary artery bypass (2018) [facility] History of cataract extraction with lens replacement History of coronary artery stent placement History of cardiac catheterization History of left below knee amputation History of amputation of toe left 5th toe 2013 small toe on the right amputated <Isi Cuadra PA-C - Last Filed: 08/19/25 17:58> Family History Family History: Family History Sibling Patient's sister is Diabetes mellitus Sister Acute myocardial infarction Three brothers and 2 sisters History of blood clots Sister Abdominal aortic aneurysm Sister Dementia Brother COPD (chronic obstructive pulmonary disease) Brother Father Acute myocardial infarction, Onset Age: 65 Mother History of blood clots Hypertension, Onset Age: 80 <Isi Cuadra PA-C - Last Filed: 08/19/25 17:58> Social History Social History: Social History Social History: Surrogate medical decision maker: Melodie Roca (niece) or Alejandra Nicolelin (sister). Code status: DNR/DNI Smoking packs per day: 0.25 Smoking cigarettes per day: 5.0 Years smoked: 30 Smoking pack-years: 7.50 Smoking status: Former smoker Alcohol intake: never Drinks per week: 2 Alcohol use details: Social alcohol use. Substance use: never Substance use type: does not use Last use: 2019 Lack of Transportation: No Lack of Food: Never True Current Housing: I Have Housing Concerned About Future Housing: No Difficulty Paying Gas/Electric Bills: No Difficulty Paying for Meds: No Currently Unemployed: No Education: Don't Know Difficulty w/ Childcare or Family Care: No Additional living arrangements comments: [facility]. Additional occupation/education comments: Disabled. Spiritual care concerns: No <Isi Cuadra PA-C - Last Filed: 08/19/25 17:58> Exam Narrative: APPEARANCE: No acute distress, nontoxic, resting in bed EYES: EOMI HEENT: Normocephalic, atraumatic, OMM RESPIRATORY: No respiratory distress Clear to auscultation bilaterally with no rhonchi wheezing or rales. CARDIOVASCULAR: Regular rate and rhythm without murmurs rubs or gallops. ABDOMINAL: Soft, nontender, nondistended, no rebound or guarding MUSCULOSKELETAl: Moves all extremities. No clubbing, cyanosis or edema. NEURO: Awake and alert. Following commands, speech normal, no focal deficits SKIN:: Warm, dry. 2 x 2 cm stage III decubitus ulcer to the sacrum, no surrounding drainage. foul smell PSYCHIATRIC: Normal affect/mood, <Paulo Galvez DO - Last Filed: 08/19/25 17:50> Course Vital Signs Vital signs: Vital Signs Temperature 97.6 F 08/19/25 12:06 Pulse Rate 55 L 08/19/25 12:06 Respiratory Rate 16 08/19/25 12:06 Blood Pressure 100/39 L 08/19/25 12:06 Pulse Oximetry 97 08/19/25 12:06 Temperature 97.8 F 08/19/25 15:52 Pulse Rate 88 08/19/25 17:39 Respiratory Rate 17 08/19/25 17:39 Blood Pressure 111/90 08/19/25 17:39 Pulse Oximetry 98 08/19/25 17:39 Oxygen Delivery Room Air 08/19/25 15:52 <Isi Cuadra PA-C - Last Filed: 08/19/25 17:58> Vital Signs Temperature 97.6 F 08/19/25 12:06 Pulse Rate 55 L 08/19/25 12:06 Respiratory Rate 16 08/19/25 12:06 Blood Pressure 100/39 L 08/19/25 12:06 Pulse Oximetry 97 08/19/25 12:06 Temperature 97.8 F 08/19/25 15:52 Pulse Rate 88 08/19/25 17:39 Respiratory Rate 17 08/19/25 17:39 Blood Pressure 111/90 08/19/25 17:39 Pulse Oximetry 98 08/19/25 17:39 Oxygen Delivery Room Air 08/19/25 15:52 <Paulo Galvez DO - Last Filed: 08/19/25 17:50> [facility] MDM Narrative Medical decision making narrative: 60-year-old male Presenting for sacral wound. On initial evaluation patient was in no acute distress afebrile, hemodynamic stable. Differentials include but are not limited to: Cellulitis, abscess, osteomyelitis Notable exam findings: Large decubitus ulcer with foul smell and some granulation tissue I personally reviewed the patient's lab result. Notable lab findings: Anemic at 10.3. Creatinine elevated at 6.62 which is expected with his ESRD. CRP 3.[address] pelvis showed cellulitis probable chronic osteomyelitis. Given CT findings, I did discuss the case with Dr. Fitch, drainage, did come to evaluate the patient. He did debride some tissue and to wound. He gave wound care instructions long-term. Patient was deemed appropriate for discharge at this time. Advised to follow with wound care as discussed. <Paulo Galvez DO - Last Filed: 08/19/25 17:50> Differential Diagnosis Differential Diagnosis: Cellulitis, abscess, osteomyelitis <Paulo Galvez - Last Filed: 08/19/25 17:50> Lab Data Result diagrams: 08/19/25 14:23 08/19/25 14:23 <Isi Cuadra PA-C - Last Filed: 08/19/25 17:58> Labs: Lab Results 08/19/25 Range/Units 14:23 WBC 8.5 (4.5-10.0) K/mm3 RBC 3.14 L (4.6-6.20) M/mm3 Hgb 10.3 L (14.0-18.0) g/dL Hct 33.4 L (42.0-52.0) % MCV 106.4 H (80-100) fl MCH 32.8 (26-34) pg MCHC 30.8 L (32-36) g/dl RDW 16.8 H (11.5-14.5) % Plt Count 98 L (150-375) k/mm3 MPV 10.7 H (7.4-10.4) fl Immature Gran % (Auto) 0.5 (0-0.5) % Neut % (Auto) 81.4 H (45.5-73.1) % Lymph % (Auto) 8.2 L (18.3-44.2) % [place] % (Auto) 8.6 H (2.6-8.5) % Eos % (Auto) 0.9 (0-4.4) % Baso % (Auto) 0.4 (0.2-1.2) % Lymph # (Auto) 0.70 L (0.9-3.2) K/mm3 [place] # (Auto) 0.7 H (0.1-0.6) K/mm3 Eos # (Auto) 0.1 (0-0.3) K/mm3 Baso # (Auto) 0.0 (0.0-0.1) K/mm3 Abs Immat Gran (auto) 0.04 H (0.00-0.031) K/mm3 Absolute Neuts (auto) 6.9 H (1.3-6.7) K/mm3 Absolute Nucleated RBC 0.000 (0.0-0.012) K/mm3 Band Neutrophils % Not Reportable Nucleated RBC % 0.0 (0.0-0.2) % Platelet Estimate Decreased (Adequate) % Immature Plt Fraction 2.9 (0.9-11.2) % Macrocytosis 1+ (NORMAL) Ovalocytes Occasional Schistocytes None seen ESR 123 H (0-20) mm/hr PT 19.2 H (11.1-14.7) Seconds INR 1.6 APTT 39.6 H (22.3-36.8) Seconds Sodium 140 (137-145) mmol/L Potassium 4.8 (3.4-5.0) mmol/L Chloride 102 (98-107) mmol/L Carbon Dioxide 29 (22-30) mmol/L Anion Gap 9 (4-12) mmol/L BUN 61 H D (9-20) mg/dL Creatinine 6.62 H (0.7-1.3) mg/dL Estim Creat Clear Calc Not Reportable Estimated GFR 9 L (59 - ) Glucose 149 H (65-110) mg/dL Calcium 8.1 L (8.4-10.2) mg/dL Total Bilirubin 0.5 (0.2-1.3) mg/dL AST 31 (17-59) U/L ALT 24 (6-50) U/L Alkaline Phosphatase 199 H (38-126) U/L C-Reactive Protein 3.6 H (<1.0) mg/dL Total Protein 7.7 (6.3-8.2) g/dL Albumin 3.0 L (3.5-5.1) g/dL <Isi Cuadra PA-C - Last Filed: 08/19/25 17:58> Lab Results 08/19/25 Range/Units 14:23 WBC 8.5 (4.5-10.0) K/mm3 RBC 3.14 L (4.6-6.20) M/mm3 Hgb 10.3 L (14.0-18.0) g/dL Hct 33.4 L (42.0-52.0) % MCV 106.4 H (80-100) fl MCH 32.8 (26-34) pg MCHC 30.8 L (32-36) g/dl RDW 16.8 H (11.5-14.5) % Plt Count 98 L (150-375) k/mm3 MPV 10.7 H (7.4-10.4) fl Immature Gran % (Auto) 0.5 (0-0.5) % Neut % (Auto) 81.4 H (45.5-73.1) % Lymph % (Auto) 8.2 L (18.3-44.2) % [place] % (Auto) 8.6 H (2.6-8.5) % Eos % (Auto) 0.9 (0-4.4) % Baso % (Auto) 0.4 (0.2-1.2) % Lymph # (Auto) 0.70 L (0.9-3.2) K/mm3 [place] # (Auto) 0.7 H (0.1-0.6) K/mm3 Eos # (Auto) 0.1 (0-0.3) K/mm3 Baso # (Auto) 0.0 (0.0-0.1) K/mm3 Abs Immat Gran (auto) 0.04 H (0.00-0.031) K/mm3 Absolute Neuts (auto) 6.9 H (1.3-6.7) K/mm3 Absolute Nucleated RBC 0.000 (0.0-0.012) K/mm3 Band Neutrophils % Not Reportable Nucleated RBC % 0.0 (0.0-0.2) % Platelet Estimate Decreased (Adequate) % Immature Plt Fraction 2.9 (0.9-11.2) % Macrocytosis 1+ (NORMAL) Ovalocytes Occasional Schistocytes None seen ESR 123 H (0-20) mm/hr PT 19.2 H (11.1-14.7) Seconds INR 1.6 APTT 39.6 H (22.3-36.8) Seconds Sodium 140 (137-145) mmol/L Potassium 4.8 (3.4-5.0) mmol/L Chloride 102 (98-107) mmol/L Carbon Dioxide 29 (22-30) mmol/L Anion Gap 9 (4-12) mmol/L BUN 61 H D (9-20) mg/dL Creatinine 6.62 H (0.7-1.3) mg/dL Estim Creat Clear Calc Not Reportable Estimated GFR 9 L (59 - ) Glucose 149 H (65-110) mg/dL Calcium 8.1 L (8.4-10.2) mg/dL Total Bilirubin 0.5 (0.2-1.3) mg/dL AST 31 (17-59) U/L ALT 24 (6-50) U/L Alkaline Phosphatase 199 H (38-126) U/L C-Reactive Protein 3.6 H (<1.0) mg/dL Total Protein 7.7 (6.3-8.2) g/dL Albumin 3.0 L (3.5-5.1) g/dL <Paulo Galvez DO - Last Filed: 08/19/25 17:50> Imaging Data Radiologist's impression: ITS Impressions Pelvis CT 08/19/25 16:12 IMPRESSION: Sacral decubitus ulcer with cellulitis and probable chronic osteomyelitis. Incidental findings above <Isi Cuadra PA-C - Last Filed: 08/19/25 17:58> ITS Impressions Pelvis CT 08/19/25 16:12 IMPRESSION: Sacral decubitus ulcer with cellulitis and probable chronic osteomyelitis. Incidental findings above <Paulo Galvez DO - Last Filed: 08/19/25 17:50> Critical Care Time Critical Care Time Critical Care Time: No <Isi Cuadra PA-C - Last Filed: 08/19/25 17:58> Discharge Plan Discharge Clinical Impression: Chronic osteomyelitis, ESRD (end stage renal disease) on dialysis Sacral decubitus ulcer Qualifiers: Pressure injury stage: stage 4 Qualified Code(s): L89.154 - Pressure ulcer of sacral region, stage 4 <Isi Cuadra PA-C - Last Filed: 08/19/25 17:58> Patient Disposition: Home <JAZLYN Alves Last Filed: 08/19/25 17:58> Condition: Stable <JAZLYN Alves Last Filed: 08/19/25 17:58> Instructions: Antibiotic Form <JAZLYN Alves Last Filed: 08/19/25 17:58> Additional Instructions: Some necrotic tissue was debrided by Dr. Fitch, general surgery. Continue wound management. Please ensure that he goes to dialysis tomorrow. <Isi Cuadra PA-C - Last Filed: 08/19/25 17:58> Patient Language: Bol[place]ian <Isi Cuadra PA-C - Last Filed: 08/19/25 17:58> Prescriptions: No Action ferrous sulfate 325 mg (65 mg iron) Tablet 325 mg PO DAILY nitroglycerin 0.4 mg Tablet, Sublingual 0.4 mg SUBLINGUAL Q5-15M PRN (Reason: Chest Pain) Rx Instructions: 3 dose max atorvastatin [Lipitor] 40 mg Tablet 40 mg PO HS tamsulosin [Flomax] 0.4 mg Capsule 0.4 mg PO DAILY Rx Instructions: takes with evening meal folic acid 1 mg Tablet 1 mg PO DAILY gabapentin 100 mg Tablet 200 mg PO HS sevelamer carbonate 800 mg Tablet 800 mg PO DAILY@1700 mirtazapine 15 mg tablet 15 mg PO HS sertraline 50 mg tablet 50 mg PO QAM Tradjenta 5 mg tablet 5 mg PO DAILY midodrine 10 mg Tablet 10 mg PO BID Patient Comments: hold if systolic bp is higher than 90 or diastolic greater than 60 Rx Instructions: takes at 0800 and 1400 acetaminophen [Tylenol] 325 mg Tablet 650 mg PO Q6H PRN (Reason: Pain (Scale Score 1-3)) sennosides-docusate sodium [Senna Plus] 8.6-50 mg Tablet 1 tablet PO BID PRN (Reason: Constipation) naloxone 4 mg/actuation spray,non-aerosol 1 spray INTRANASAL Q3M PRN (Reason: Opioid Overdose) mirtazapine 7.5 mg tablet 7.5 mg PO HS Rx Instructions: with 15mg tab famotidine 20 mg tablet 20 mg PO Q12H tizanidine 2 mg tablet 2 mg PO Q12H Rx Instructions: Mon, Wed, Fri ascorbic acid (vitamin C) 500 mg tablet 500 mg PO Q12H zinc sulfate 220 mg capsule 220 mg PO DAILY Nephro-Savannah 0.8 mg tablet 1 tablet PO DAILY aspirin 325 mg Tablet,Delayed Release (Dr/Ec) 325 mg PO QAM Qty: 30 0RF diphenoxylate-atropine [Lomotil] 2.5-0.025 mg Tablet 2 tablet PO TID PRN (Reason: Diarrhea) Qty: 15 0RF Rx Instructions: do not exceed 10 days consecutively tramadol 50 mg tablet 50 mg PO Q4H PRN (Reason: Pain (Scale Score 4-6)) Qty: 15 0RF Santyl 250 unit/gram ointment 1 applic TOPICAL DAILY tizanidine 2 mg tablet 2 mg PO TID Rx Instructions: On Saturday, Saturday, , and Saturday metronidazole 500 mg Tablet 500 mg PO Q8HR Qty: 30 0RF lidocaine-prilocaine 2.5-2.5 % Cream 0.5 g topical WITH DIALYSIS PRN (Reason: for dialysis) Qty: 30 0RF Dakin's Solution 0.125 % Solution 1 applic topical Q12HR Qty: 100 0RF <Isi Cuadra PA-C - Last Filed: 08/19/25 17:58> Follow-up/Referrals: Will,MD Theodore [Primary Care Provider, Unknown] <Isi Cuadra PA-C - Last Filed: 08/19/25 17:58>
[2025-08-19 14:34] LABS: Hematocrit 33.4 % (42.0-52.0); Hemoglobin 10.3 g/dL (14.0-18.0); Immature Granulocyte Percent A 0.5 % (0-0.5); Immature Platelet Fraction Pct 2.9 % (0.9-11.2); Lymphocytes Absolute Auto 0.70 K/mm3 (0.9-3.2); Mean Corpuscular HGB Conc 30.8 g/dl (32-36); Mean Corpuscular Hemoglobin 32.8 pg (26-34); Mean Corpuscular Volume 106.4 fl (80-100); Nucleated Red Blood Cells Absolute Auto 0.000 K/mm3 (0.0-0.012); Nucleated Red Blood Cells Perc 0.0 % (0.0-0.2); Platelet Count Result 98 k/mm3 (150-375); Red Blood Count 3.14 M/mm3 (4.6-6.20); White Blood Count 8.5 K/mm3 (4.5-10.0)
[2025-08-19 14:44] LABS: INR 1.6; Prothrombin Time 19.2 Seconds (11.1-14.7)
[2025-08-19 14:45] LABS: Partial Thromboplastin Time 39.6 Seconds (22.3-36.8)
[2025-08-19 14:47] LABS: Alanine Aminotransferase 24 U/L (6-50); Albumin Level 3.0 g/dL (3.5-5.1); Alkaline Phosphatase 199 U/L (38-126); Anion Gap 9 mmol/L (4-12); Aspartate Amino Transferase 31 U/L (17-59); Bilirubin,Total 0.5 mg/dL (0.2-1.3); Blood Urea Nitrogen 61 mg/dL (9-20); CRP 3.6 mg/dL (<1.0); Calcium 8.1 mg/dL (8.4-10.2); Carbon Dioxide 29 mmol/L (22-30); Chloride 102 mmol/L (98-107); Estimated Glomerular Filt Rate 9; Glucose 149 mg/dL (65-110); Potassium 4.8 mmol/L (3.4-5.0); Sodium 140 mmol/L (137-145); Total Protein 7.7 g/dL (6.3-8.2)
[2025-08-19 14:53] LABS: Macrocytosis 1+ (NORMAL); Schistocytes None Seen
[2025-08-19 14:54] LABS: Ovalocytes Occasional
--- OUTSIDE RECORDS SUMMARY | 2025-08-19 15:26 | XMS_ITS ---
Author Organization [facility] [place] [address] Address [address] [place] [address] Care Team Providers Care Documentation Coordinator Name Role Phone Frandy Colunga MD Unavailable [phone] Alcon Quintanilla DPM Unavailable [phone], Physician Primary Care Provider Theodore Solis MD Unavailable [phone] Leah MARINO MD, Raul Woodard Unavailable Dialysis [...] AM CDT COLONOSCOPY 11/03/2021 12:44 PM SUPERVISOR CONTINUOUS WELD PIPE MILL HEPATITIS C ANTIBODY Routine 09/20/2020 8:35 PM SUPERVISOR CONTINUOUS WELD PIPE MILL from Last 3 Months or Most Recently [...] no signs of displacement. Discussed extensively with audio director and therapy. We will proceed with [...] GI. I reminded patient has sister and audio director at this appointment at [facility] at 1:[address] Bradley. [...] presented with mental status changes from the senior care and found to have acute cholecystitis. Likely acute metabolic encephalopathy. Treat underlying cause. Mental status is improving. Closed left subtrochanteric femur fracture, sequ christiana 02/28/2023 Assessment & Plan (04/09/2023 7:04 PM CDT): Ortho fu pending, don aware Assessment & Plan (04/03/2023 5:26 PM CDT): Nonoperative management was recommended at [facility] earlier this summer. We will arrange outpatient follow up with Orthopedics but seems to be asymptomatic on that leg Assessment & Plan (03/26/2023 3:12 PM CDT): As per HPI, pain seems somewhat better controlled on current regimen. Recent x- rays did not show any new fractures. I reminded audio director the patient appears to still need appointment made with Orthopedics at [place]. Phone #[phone] Assessment & Plan (03/18/2023 4:48 PM CDT): [...] as pain control with oxycodone. Discussed with audio director about getting follow up with Orthopedics [...] status seems to be slowly improving. Reminded audio director that patient has on April 23 appointment with Neurosurgery at [facility] at 1:30 p.m. along with the [...] to be clinically improving neurologically. Discussed with audio director about getting neurosurgery follow up in [...] Assessment & Plan (10/27/2021 3:09 PM SUPERVISOR CONTINUOUS WELD PIPE MILL): EGD/Colonoscopy scheduled for 11/03/21 Hold aspirin 10/29/21 Assessment & Plan (08/15/2021 1:41 PM SUPERVISOR CONTINUOUS WELD PIPE MILL): Patient was referred for colonoscopy and has appointment with GI. Abdominal pain has resolved. Assessment & Plan (08/08/2021 12:33 PM SUPERVISOR CONTINUOUS WELD PIPE MILL): Last colonoscopy 2012 (Unavailable). Recurrent rectal pain and diarrhea. No hemorrhoids. Check CBC. Encounter for surgical after care following surgery of circulatory system 06/16/2021 Chronic diarrhea 06/06/2021 Assessment & Plan (10/03/2021 9:10 AM SUPERVISOR CONTINUOUS WELD PIPE MILL): Pt was given Lomotil due to diarrhea and now c/o constipation. Resume questran and loperamide when constipation resolved. Assessment & Plan (07/28/2021 12:53 PM SUPERVISOR CONTINUOUS WELD PIPE MILL): Pt was given Lomotil due to diarrhea and now c/o constipation. Resume questran and loperamide when constipation resolved. Assessment & Plan (07/18/2021 1:25 PM SUPERVISOR CONTINUOUS WELD PIPE MILL): Continue cholestyramine and loperamide. Assessment & Plan [...] Assessment & Plan (10/03/2021 9:09 AM SUPERVISOR CONTINUOUS WELD PIPE MILL): Patient's pain is controlled with [place] Patient needs AKA wound functional level for prosthesis for transfer and ambulation on level surfaces at a fixed candence Assessment & Plan (06/14/2021 2:19 PM CDT): Percocet change to [place] as patient could not tolerate Assessment & Plan (05/31/2021 1:38 PM CDT): Continue PT/OT. Recurrent major depressive disorder, in remissio n 05/31/2021 Assessment & Plan (03/18/2023 4:46 PM CDT): Cont remeron, stable but fluctuates due to recent hosp stay and illnesses Assessment & Plan (07/28/2021 12:53 PM SUPERVISOR CONTINUOUS WELD PIPE MILL): Continue Remeron and Zoloft. Assessment & Plan [...] Assessment & Plan (10/03/2021 9:11 AM SUPERVISOR CONTINUOUS WELD PIPE MILL): Continue Tradjenta and Glargine. Blood sugars have been stable between 70 and 150 Assessment & Plan (09/05/2021 12:27 PM SUPERVISOR CONTINUOUS WELD PIPE MILL): Continue Tradjenta and Glargine. Check A1c every 90 days. Assessment & Plan (08/01/2021 11:57 AM SUPERVISOR CONTINUOUS WELD PIPE MILL): Blood glucose 110 - 138 Continue Glargine and Tradjenta Assessment & Plan (07/18/2021 1:24 PM SUPERVISOR CONTINUOUS WELD PIPE MILL): Continue Tradjenta and glargine insulin. Assessment & [...] Assessment & Plan (10/03/2021 9:09 AM SUPERVISOR CONTINUOUS WELD PIPE MILL): Not on anticoagulation. Continue Metoprolol, Aspirin. Assessment & Plan (08/01/2021 11:54 AM SUPERVISOR CONTINUOUS WELD PIPE MILL): Not on anticoagulation. Continue Metoprolol, Aspirin. Assessment & Plan (05/16/2021 9:05 AM CDT): - Not on anticoagulation - Continue metoprolol Assessment & Plan (02/22/2021 10:43 AM CDT): - Not on anticoagulation - Continue metoprolol Fall 02/22/2021 Assessment & Plan (02/22/2021 3:28 PM CDT): - Patient fell at facility 02/21 CONTACT CENTER REPRESENTATIVE, states he rolled out of bed and [...] (12/05/2020): Added automatically from request for surgery [id number] End-stage renal disease on hemodialysis 09/14/19 Assessment [...] Assessment & Plan (10/27/2021 3:10 PM SUPERVISOR CONTINUOUS WELD PIPE MILL): Continue hemodialysis weekly. Assessment & Plan (08/07/2021 10:27 AM SUPERVISOR CONTINUOUS WELD PIPE MILL): Currently on Sevelamer and Ferrous sulfate. Hemodialysis three days weekly. Assessment & Plan (07/14/2021 1:51 PM SUPERVISOR CONTINUOUS WELD PIPE MILL): Continue Sevelamer and Ferrous sulfate. Assessment & [...] Assessment & Plan (09/21/2020 8:33 AM SUPERVISOR CONTINUOUS WELD PIPE MILL): - ESRD on dialysis as of August [...] Assessment & Plan (09/15/2020 11:00 AM SUPERVISOR CONTINUOUS WELD PIPE MILL): - Related to increased needs, chronic illness/injury and wounds - Nutrition consulted - Consistent carb diet. Will allow double portions of meat. - Supplements ordered Foot ulcer due to secondary DM 09/13/2020 Assessment & Plan (09/21/2020 8:32 AM SUPERVISOR CONTINUOUS WELD PIPE MILL): Right foot wounds appeared about 1 month [...] Continue aspirin + Plavix daily Atherosclerosis of [place] artery of right lower extremity 09/06/2020 Overview (09/06/2020): Added automatically from request for surgery [id number] Peripheral arterial disease ([facility]) 09/06/2020 Overview (09/06/2020): Added automatically from request for surgery [id number] Assessment & Plan (03/06/2023 4:14 PM CDT): Continue medical management with statin. 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 Presents now [...] Assessment & Plan (09/05/2021 12:26 PM SUPERVISOR CONTINUOUS WELD PIPE MILL): Continue working with PT/OT. Follow up outpatient for prosthetic. Assessment & Plan (08/15/2021 1:43 PM SUPERVISOR CONTINUOUS WELD PIPE MILL): Continue PT/OT Continue outpatient follow up for prosthetic on 08/21/21 (2pm), 08/28/21 (11am), and 09/06/21 (11am). Assessment & Plan (08/08/2021 12:35 PM SUPERVISOR CONTINUOUS WELD PIPE MILL): Seen outpatient for prosthetic yesterday and has follow up again 08/21/21 (2pm), 08/28/21 (11am), and 09/06/21 (11am) Assessment & Plan (08/07/2021 10:29 AM SUPERVISOR CONTINUOUS WELD PIPE MILL): Denies phanthom limb pain. Pain controlled cyclobenzaprine, Acetaminophen, and Gabapentin. Assessment & Plan (08/01/2021 11:53 AM SUPERVISOR CONTINUOUS WELD PIPE MILL): Continue Aspirin and Gabapentin. Pain well controlled. Assessment & Plan (07/07/2021 12:45 PM CDT): Follow-up outpatient for prosthesis ([place]) Continue gabapentin, acetaminophen, and physical and occupational therapy as tolerated. Assessment & Plan (06/29/2021 1:45 PM CDT): Patient measured for below-knee manager combination is yesterday and will follow-up for fitting ([place]). Incision well-healed. Continue PT/OT. Continue gabapentin and acetaminophen. Assessment & Plan (06/19/2021 1:55 PM CDT): Patient had follow-up with vascular surgeon. Sutures removed and patient recommended for residual limb manager combination. Pain well controlled. Continue PT/OT Assessment & Plan (06/08/2021 3:02 PM CDT): Patient unable to tolerate oxycodone due to increased confusion. Discussed with MD and will discontinue oxycodone and changed to [place] to help with postoperative pain. Assessment & [...] Bed will be available at [facility] tomorrow Patient was not accepted at [facility] rehab per social media director Assessment & [...] Assessment & Plan (07/14/2021 1:52 PM SUPERVISOR CONTINUOUS WELD PIPE MILL): Continue Lasix 40 mg daily Assessment & Plan (09/15/2020 10:36 AM SUPERVISOR CONTINUOUS WELD PIPE MILL): - Echo from 05/2020 LVEF 34% otherwise [...] degree HB on tele w/ very prolonged AL interval and resting bradycardia to mid 50-60s [...] degree HB on tele w/ very prolonged AL interval and resting bradycardia to mid 50-60s [...] degree HB on tele w/ very prolonged AL interval and resting bradycardia to mid 50s, [...] degree HB on tele w/ very prolonged AL interval and resting bradycardia to mid 50s, [...] degree HB on tele w/ very prolonged AL interval, consider restarting - on Entresto 49-51 [...] degree HB on tele w/ very prolonged AL interval, consider restarting - on Entresto 49-51 [...] degree HB on tele w/ very prolonged AL interval. Restart if able. - on Entresto [...] degree HB on tele w/ very prolonged AL interval. Restart if able. - on Entresto [...] Plan (05/19/2020 9:20 AM CDT): - BNP 53884 - Restart home carvedilol - Diuresis 2017 [...] (05/18/2020): Added automatically from request for surgery [id number] Assessment & Plan (06/01/2020 10:34 AM CDT): [...] (05/19/2020): Added automatically from request for surgery [id number] Assessment & Plan (02/28/2023 9:46 AM CDT): [...] Book Phaco/IOL/ right eye. IOLM per Dr. aMy Assessment & Plan (04/24/2020 6:55 PM CDT): [...] Assessment & Plan (09/22/2019 3:29 PM SUPERVISOR CONTINUOUS WELD PIPE MILL): New cataract evaluation today Mature cataract OS [...] on admission with NSR with severely prolonged AL - as noted above, resuming low dose coreg - telemetry Assessment & Plan (06/29/2020 9:55 AM CDT): History of post-op AF - Not on AC on admission, ECG on admission with NSR with severely prolonged AL - as noted above, resuming low dose coreg - telemetry Assessment & Plan (06/28/2020 10:30 AM CDT): History of post-op AF - Not on AC on admission, ECG on admission with NSR with severely prolonged AL - Holding coreg for now while on dobutamine - telemetry Assessment & Plan (06/27/2020 1:26 PM CDT): History of post-op AF - Not on AC on admission, ECG on admission with NSR with severely prolonged AL - Holding coreg for now while on dobutamine - telemetry Assessment & Plan (06/26/2020 12:02 PM CDT): History of post-op AF - Not on AC on admission, ECG on admission with NSR with severely prolonged AL - Holding coreg for now while on dobutamine - telemetry Assessment & Plan (06/25/2020 2:28 PM CDT): History of post-op AF - Not on AC on admission, ECG on admission with NSR with severely prolonged AL - Holding coreg for now while on dobutamine - telemetry Assessment & Plan (06/24/2020 3:35 PM CDT): History of post-op AF - Not on AC on admission, ECG on admission with NSR with severely prolonged AL - Holding coreg for now while on dobutamine - telemetry Assessment & Plan (06/23/2020 9:22 AM CDT): History of post-op AF - Not on AC on admission, ECG on admission with NSR with severely prolonged AL - Holding coreg for now while on dobutamine - telemetry Assessment & Plan (06/22/2020 12:01 PM CDT): History of post-op AF - Not on AC on admission, ECG on admission with NSR with severely prolonged AL - Holding coreg for now while on dobutamine - telemetry Assessment & Plan (06/21/2020 10:44 AM CDT): History of post-op AF - Not on AC on admission, ECG on admission with NSR with severely prolonged AL - Holding coreg for now while on dobutamine - telemetry Assessment & Plan (06/20/2020 11:49 AM CDT): History of post-op AF - Not on AC on admission, ECG on admission with NSR with severely prolonged AL - Holding coreg for now while on [...] Obesity 01/03/2015 Diabetes mellitus type II, uncontrolled ([facility] ) 08/18/2013 Overview (05/26/2020): May [...] Assessment & Plan (09/15/2020 10:36 AM SUPERVISOR CONTINUOUS WELD PIPE MILL): - Hgb A1c 8.5% 05/2020, 5.5% 09/2019 [...] as current doses - 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 Consider GLP-1 [...] Assessment & Plan (09/14/2020 11:01 AM SUPERVISOR CONTINUOUS WELD PIPE MILL): - s/p CABG [address] Sae [...] Assessment & Plan (09/17/2020 6:52 AM SUPERVISOR CONTINUOUS WELD PIPE MILL): - VS Q4 hrs - Continue home Lasix, hydralazine, metoprolol, Isordil Assessment & Plan (06/28/2020 10:41 AM CDT): - Elevated blood pressure - continue hydralazine 100 mg tid, isosorbide 40 mg tid - Coreg held with recent PHOTOGRAPHIC SPECIALIST, likely resume low dose tomorrow Assessment & Plan (06/27/2020 1:27 PM CDT): - Elevated blood pressure - continue hydralazine 100 mg tid, isosorbide 40 mg tid - Coreg held with recent PHOTOGRAPHIC SPECIALIST, likely resume tomorrow Assessment & Plan (06/26/2020 12:05 PM CDT): -Elevated blood pressure - continue hydralazine 100 mg tid, isosorbide 40 mg tid -Coreg held while on PHOTOGRAPHIC SPECIALIST Assessment & Plan (06/25/2020 2:31 PM CDT): -Elevated blood pressure - continue hydralazine 100 mg tid, isosorbide 40 mg tid -Coreg held while on PHOTOGRAPHIC SPECIALIST Assessment & Plan (06/24/2020 3:58 PM CDT): -Elevated blood pressure - continue hydralazine 100 mg tid, isosorbide 40 mg tid -Coreg held while on PHOTOGRAPHIC SPECIALIST Assessment & Plan (06/23/2020 10:00 AM CDT): Elevated blood pressure - continue hydralazine 100 mg tid, isosorbide 40 mg tid Off carvedilol while being on dobutamine Continue to monitor Assessment & Plan (05/31/2020 11:11 AM CDT): On home carvedilol, held due to 1st degree HB with prolonged AL interval, borderline HR (56-60) - Start amlodipine 5mg Assessment & Plan (05/30/2020 1:28 PM CDT): On home carvedilol, held due to 1st degree HB with prolonged AL interval, borderline HR (56-60) - Start amlodipine 5mg Assessment & Plan (05/29/2020 10:58 AM CDT): On home carvedilol, held due to 1st degree HB with prolonged AL interval, borderline HR (56-60) - Start amlodipine 5mg Assessment & Plan (05/26/2020 12:36 PM CDT): On home carvedilol, held due to 1st degree HB with prolonged AL interval, borderline HR (56-60) - Start amlodipine [...] often do you attend [facility] or mandaeism services? Never 03/12/2023 Do you belong to any clubs o r organizations such as quaker groups, unions, fraternal or athletic groups, or [...] file Legal Sex Male 4:17 AM SUPERVISOR CONTINUOUS WELD PIPE MILL Gender Identity Not on file Sexual Orientation [...] MD LAB BLOOD ORDERABLES Final Result LEANDRO [address] [facility] Department [place] [address] * Hemoglobin A1c (02/15/2023 5:16 AM CDT) Pathologist [facility] Hgb A1C 5.5 4.0 - 5.6 % LEANDRO [facility] Estimated Average Glucose 111 mg/dL LEANDRO CLARKE [...] MD LAB BLOOD ORDERABLES Final Result LEANDRO [facility] Department [place] [address] * (ABNORMAL) Lipid panel (02/15/2023 5:16 AM CDT) Cholesterol 75 30 - 199 mg/dL LEANDRO [facility] Comment: Interpretive Data Ages < or = [...] on 2018. Triglycerides 81 <=149 mg/dL [facility] Comment: Interpretive Data Ages < or = [...] on 2018. HDL 26(L) >=40 mg/dL LEANDRO [facility] Comment: Interpretive Data Ages < or = [...] 2018. LDL, calculated 33 <=129 mg/dL LEANDRO [facility] Comment: Interpretive Data Ages < or = [...] revised on 2018. Chol/HDL ratio 3 [facility] Blood 02/15/2023 5:16 AM CDT 02/15/2023 5:57 AM CDT us Marcella Arias MD LAB BLOOD ORDERABLES Final Result [facility] Department [place] [address] * COLONOSCOPY (11/03/2021 12:44 PM SUPERVISOR CONTINUOUS WELD PIPE MILL) Anatomical Region Laterality Modality Other Narrative Procedure Note Brayden Lerma MD - 11/03/2021 12:44 PM CST [facility] Patient Name: Kobi Salter Procedure Date: 11/03/2021 12:44 PM Date of : 1965 Admit Type: Outpatient Age: 56 Gender: Male Note Status: Finalized Attending MD: Brayden Lerma M.D. Procedure Date: 11/03/2021 Procedure: Colonoscopy Indications: Chronic diarrhea Patient Profile: This is a 56 year old male. Diarrhea. Providers: Brayden Lerma M.D., Teresa Ross, ASSOCIATE PROFESSOR OF THEOLOGY (Anesthesia Staff), Gini Izquierdo RN, Jose A Vuong,Lmsw Referring MD: Jewels Lamas M.D. Medicines: Monitored [...] bowel preparation was evaluated using the BBPS ([place] Bowel Preparation Scale)with scores of: Right Colon [...] Hepatitis C antibody (09/20/2020 8:35 PM SUPERVISOR CONTINUOUS WELD PIPE MILL) Hep C Ab Nonreactive Nonreactive LEANDRO PUENTES Comment:Antibodies to HCV no t detected. Does NOT exclude the possibility of recent exposure to HCV. Blood specimen (specimen) 09/20/2020 8:35 PM SUPERVISOR CONTINUOUS WELD PIPE MILL 09/20/2020 10:17 PM SUPERVISOR CONTINUOUS WELD PIPE MILL us Jasson Teague NP LAB MICROBIOLOGY - GENE RAL ORDERABLES Final Result LEANDRO [facility] Department [place] [address] from Last 3 Months or Most Recently Relevant to Health Maintenance
--- OUTSIDE RECORDS SUMMARY | 2025-08-19 15:26 | XMS_ITS | Encounter Summary ---
Author Organization [facility] Address [address] [place] [address] Phone Care Team Providers Care Malt House Supervisor Name Role Phone Avery Tay MD Primary Care Provider [phone] No, Physician Primary Care Provider [phone] Avery Tay MD Primary Care Provider [phone] Mariposa Smalls RN Unavailable Warner Sidhu MD PhD Unavailable + Jewels Lamas MD Primary Care Provider + [phone] Mariposa Smalls RN Unavailable Frandy Colunga MD Unavailable [phone] Alcon Quintanilla DPM Unavailable [phone] No, Physician Primary Care Provider [phone] Theodore Solis MD Unavailable [phone] Leah MARINO MD, Raul Woodard Unavailable + [phone] Encounter Details Date Type Department Care Team (Latest Contact Info) Description 09/06/2017 Orders Only [facility] CONVERSION Scanning, Provider Social History Tobacco Use Types Packs/Day Years Used Date Smoking Tobacco: Never Assessed Sex and Gender Information Value Date Recorded Sex Assigned at Not on file Legal Sex Male 4:17 AM REACTOR TECHNICIAN Gender Identity Not on file Sexual Orientation Not on file documented as of this encounter Plan of Treatment Not on file documented as of this encounter Procedures Procedure Name Priority Date/Time Associated Diagnosis Comments VASCULAR LABORATORY REPORT 09/12/2017 3:49 PM REACTOR TECHNICIAN VASCULAR LABORATORY REPORT 09/06/2017 2:11 PM REACTOR TECHNICIAN VASCULAR LABORATORY REPORT 09/06/2017 1:55 PM REACTOR TECHNICIAN documented in this encounter Results * VASCULAR LABORATORY REPORT (09/12/2017 3:49 PM REACTOR TECHNICIAN) Anatomical Region Laterality Modality Ultrasound us Provider Scanning CV VASCULAR PROCEDURES Final R esult * VASCULAR LABORATORY REPORT (09/06/2017 2:11 PM REACTOR TECHNICIAN) Anatomical Region Laterality Modality Ultrasound us Provider Scanning CV VASCULAR PROCEDURES Final R esult * VASCULAR LABORATORY REPORT (09/06/2017 1:55 PM REACTOR TECHNICIAN) Anatomical Region Laterality Modality Ultrasound us Provider [...] was positive for COVID19 on 08/07/20 at [facility]; lab in Care Everywhere. There are no present respiratory concerns for this admission. Patient presents for wound assessment and management. Pt meets Recovered criteria. Becka Nation RN 09/13/2020 09/13/2020 09/13/2020 11:00 PM REACTOR TECHNICIAN COVID: Recovered Comment:09/13/2020 IP Review - See note below regarding prior positive on 08/07/20 at [facility]. Spoke to ED team and there are no respiratory concerns at this time. Becka Nation RN 09/13/2020 09/13/2020 04/05/2021 3:05 AM C DT MRSA 11/14/2020 11/18/2020 10/31/2021 4:00 AM REACTOR TECHNICIAN COVID: Suspected 02/13/2021 02/13/2021 02/13/2021 10:13 PM CDT COVID: Suspected 04/22/2021 04/22/2021 04/22/2021 7:17 AM CDT VRE 05/19/2021 05/19/2021 11/15/2021 3:05 AM CDT COVID: Suspected 12/06/2022 12/06/2022 12/06/2022 2:04 PM CDT COVID: Suspected 03/10/2023 03/10/2023 03/10/2023 10:14 AM CDT MRSA 03/11/2023 04/16/2023 10/13/2023 3:05 AM REACTOR TECHNICIAN MDR gram neg/ESBL 04/16/2023 04/16/2023 C. difficile 04/26/2023 04/26/2023 documented as of this encounter Care Teams Malt House Supervisor Relationship Specialty Start Date End Date Avery Tay MD PCP - General 05/31/17 11/15/19 No, Physician PCP - General 11/16/19 02/23/20 Avery Tay MD PCP - General 02/24/20 09/05/20 Jewels Lamas MD [address] [address] PCP - General Family Practice 09/06/20 02/13/23 No, Physician PCP - General 02/14/23 Mariposa Smalls, RN [address] [address] Molding Plasterer Cardiology 06/30/20 Warner Sidhu MD PhD [address] [address] Instructional Design Consultant Cardiology 06/30/20 03/29/21 Mariposa Smalls, RN [address] [address] Molding Plasterer Cardiology 06/30/20 Frandy Colunga MD [address] [address] Surgeon Vascular Surgery 02/28/21 Alcon Quintanilla DPM [address] [address] Surgeon Podiatry 02/28/21 Theodore Solis MD [address] [place] [address] Consulting Physician Internal Medicine 03/16/23 Raul Lynn IV, MD [address] [place] [address] Consulting Physician General Surgery 04/30/23 documented as of this encounter
--- OUTSIDE RECORDS SUMMARY | 2025-08-19 15:26 | XMS_ITS | Encounter Summary ---
Author Organization [facility] Address [address] [place] [address] Care Team Providers Care Ready Mix Truck Driver Name Role Phone Mariposa Smalls RN Unavailable Warner Sidhu MD PhD Unavailable + Jewels Lamas MD Primary Care Provider + [phone] Mariposa Smalls RN Unavailable Frandy Colunga MD Unavailable [phone] Alcon Quintanilla DPM Unavailable [phone] No, Physician Primary Care Provider Theodore Solis MD Unavailable [phone] Leah MARINO MD, Lyman Lansing Unavailable [phone] Encounter Details Date Type Department Care Team (Late st Contact Info) Description 12/08/2020 Documentation [facility] Case Management [address] [place] [id number] Elena Monzon LCSW Social History Tobacco Use [...] declined 06/20/2020 How often do you attend oriental orthodox or episcopalian serv ices? Patient declined 06/20/2020 Do you [...] on file Legal Sex Male 4:17 AM ANALYTICS LEAD Gender Identity Not on file Sexual Orientation Not on file documented as of this encounter Plan of Treatment Not on file documented as of this encounter Visit Diagnoses Not on filedocumented in this encounter Additional Health Concerns Infection Onset Date Last Indicated Resolved Time COVID: Recovered Comment:09/13/2020 IP Review - See note below regarding prior positive on 08/07/[address] [facility]. Spoke to ED team and there are no respiratory concerns at this time. Becka Nation RN 09/13/2020 09/13/2020 04/05/2021 3:05 AM C DT MRSA 11/14/2020 11/18/2020 10/31/2021 4:00 AM ANALYTICS LEAD COVID: Suspected 02/13/2021 02/13/2021 02/13/2021 10:13 PM CDT COVID: Suspected 04/22/2021 04/22/2021 04/22/2021 7:17 AM CDT VRE 05/19/2021 05/19/2021 11/15/2021 3:05 AM CDT COVID: Suspected 12/06/2022 12/06/2022 12/06/2022 2:04 PM CDT COVID: Suspected 03/10/2023 03/10/2023 03/10/2023 10:14 AM CDT MRSA 03/11/2023 04/16/2023 10/13/2023 3:05 AM ANALYTICS LEAD MDR gram neg/ESBL 04/16/2023 04/16/2023 C. difficile 04/26/2023 04/26/2023 documented as of this encounter Care Teams Ready Mix Truck Driver Relationship Specialty Start Date End Date Jewels Lamas MD [address] [address] PCP - General Family Practice 09/06/20 02/13/23 No, Physician PCP - General 02/14/23 Mariposa Smalls, NOEMI [address] [address] Counterintelligence Analyst Cardiology 06/30/20 Warner Sidhu MD PhD [address] [address] Boiler Room Operator Cardiology 06/30/20 03/29/21 Mariposa Smalls, RN [address] [address] Counterintelligence Analyst Cardiology 06/30/20 Frandy Colunga MD [address] [address] Surgeon Vascular Surgery 02/28/21 Alcon Quintanilla DPM [address] [address] Surgeon Podiatry 02/28/21 Theodore Solis MD [address] [place] [address] Consulting Physician Internal Medicine 03/16/23 Raul Lynn IV, MD [address] [place] [id number] Consulting Physician General Surgery 04/30/23 documented as of this encounter
--- OUTSIDE RECORDS SUMMARY | 2025-08-19 15:26 | XMS_ITS | Clinical Summary ---
Author Organization [facility] [place], [place] [address] [place] [address] Care Team Providers Care Turbine Attendant Name Role Phone Frandy Colunga MD Unavailable [phone] Alcon QuintanillaM Unavailable [phone] No, Physician Primary Care Provider Theodore Solis MD Unavailable Leah MARINO MD, [place] Unavailable [phone] Allergies Active Allergy Reactions Criticality Noted Date [...] signs of displacement. Discussed extensively with director market research and therapy. We will proceed with therapy [...] I reminded patient has sister and director market research at this appointment at [facility] at 1:[address] Bradley. We [...] CDT): Nonoperative management was recommended at [facility] earlier this summer. We will arrange outpatient follow up with Orthopedics but seems to be asymptomatic on that leg Assessment & Plan (03/26/2023 3:12 PM CDT): As per HPI, pain seems somewhat better controlled on current regimen. Recent x- rays did not show any new fractures. I reminded director market research the patient appears to still need appointment made with Orthopedics at [facility]. Phone #[phone] Assessment & Plan (03/18/2023 4:48 PM CDT): [...] pain control with oxycodone. Discussed with director market research about getting follow up with Orthopedics in [...] seems to be slowly improving. Reminded director market research that patient has on April 23 appointment with Neurosurgery at [facility] at 1:30 p.m. along with [...] be clinically improving neurologically. Discussed with director market research about getting neurosurgery follow up in about [...] 08/08/2021 Assessment & Plan (10/27/2021 3:09 PM NIGHT CLEANER): EGD/Colonoscopy scheduled for 11/03/21 Hold aspirin 10/29/21 Assessment & Plan (08/15/2021 1:41 PM NIGHT CLEANER): Patient was referred for colonoscopy and has appointment with GI. Abdominal pain has resolved. Assessment & Plan (08/08/2021 12:33 PM NIGHT CLEANER): Last colonoscopy 2012 (Unavailable). Recurrent rectal pain and diarrhea. No hemorrhoids. Check CBC. Encounter for surgical after care following surgery of circulatory system 06/16/2021 Chronic diarrhea 06/06/2021 Assessment & Plan (10/03/2021 9:10 AM NIGHT CLEANER): Pt was given Lomotil due to diarrhea and now c/o constipation. Resume questran and loperamide when constipation resolved. Assessment & Plan (07/28/2021 12:53 PM NIGHT CLEANER): Pt was given Lomotil due to diarrhea and now c/o constipation. Resume questran and loperamide when constipation resolved. Assessment & Plan (07/18/2021 1:25 PM NIGHT CLEANER): Continue cholestyramine and loperamide. Assessment & Plan [...] therapy Assessment & Plan (10/03/2021 9:09 AM NIGHT CLEANER): Patient's pain is controlled with Poyntelle Patient needs AKA wound functional level for prosthesis for transfer and ambulation on level surfaces at a fixed candence Assessment & Plan (06/14/2021 2:19 PM CDT): Percocet change to Poyntelle as patient could not tolerate Assessment & Plan (05/31/2021 1:38 PM CDT): Continue PT/OT. Recurrent major depressive disorder, in remissio n 05/31/2021 Assessment & Plan (03/18/2023 4:46 PM CDT): Cont remeron, stable but fluctuates due to recent hosp stay and illnesses Assessment & Plan (07/28/2021 12:53 PM NIGHT CLEANER): Continue Remeron and Zoloft. Assessment & Plan [...] tomorrow. Assessment & Plan (10/03/2021 9:11 AM NIGHT CLEANER): Continue Tradjenta and Glargine. Blood sugars have been stable between 70 and 150 Assessment & Plan (09/05/2021 12:27 PM NIGHT CLEANER): Continue Tradjenta and Glargine. Check A1c every 90 days. Assessment & Plan (08/01/2021 11:57 AM NIGHT CLEANER): Blood glucose 110 - 138 Continue Glargine and Tradjenta Assessment & Plan (07/18/2021 1:24 PM NIGHT CLEANER): Continue Tradjenta and glargine insulin. Assessment & Plan (06/29/2021 1:46 PM CDT): Stable on Tradjenta and glargine insulin. Assessment & Plan (06/06/2021 2:02 PM CDT): Continue Tradjenta and glargine Assessment & Plan (05/31/2021 1:46 PM CDT): Continue glargine and Tradjenta. Hypophosphatemia 05/30/2021 Assessment & Plan (05/30/2021 10:08 AM CDT): - Held sevelamer for low phosphorous level. - Given IV phos per renal 05/29 group home (current) use of antibiotics Assessment & Plan [...] ich Assessment & Plan (10/03/2021 9:09 AM NIGHT CLEANER): Not on anticoagulation. Continue Metoprolol, Aspirin. Assessment & Plan (08/01/2021 11:54 AM NIGHT CLEANER): Not on anticoagulation. Continue Metoprolol, Aspirin. 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 Assessment & Plan (10/27/2021 3:10 PM NIGHT CLEANER): Continue hemodialysis weekly. Assessment & Plan (08/07/2021 10:27 AM NIGHT CLEANER): Currently on Sevelamer and Ferrous sulfate. Hemodialysis three days weekly. Assessment & Plan (07/14/2021 1:51 PM NIGHT CLEANER): Continue Sevelamer and Ferrous sulfate. Assessment & [...] schedule Assessment & Plan (09/21/2020 8:33 AM NIGHT CLEANER): - ESRD on dialysis as of August [...] Renvela. Assessment & Plan (09/15/2020 11:00 AM NIGHT CLEANER): - Related to increased needs, chronic illness/injury and wounds - Nutrition consulted - Consistent carb diet. Will allow double portions of meat. - Supplements ordered Foot ulcer due to secondary DM 09/13/2020 Assessment & Plan (09/21/2020 8:32 AM NIGHT CLEANER): Right foot wounds appeared about 1 month [...] Continue aspirin + Plavix daily Atherosclerosis of [place] artery of right lower extremity 09/06/2020 Overview (09/06/2020): Added automatically from request for surgery [id number] Peripheral arterial disease ([facility]) 09/06/2020 Overview (09/06/2020): Added automatically from request for surgery [id number] Assessment & Plan (03/06/2023 4:14 PM CDT): Continue medical management with statin. 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 Presents now [...] 06/23/2020 Assessment & Plan (09/05/2021 12:26 PM NIGHT CLEANER): Continue working with PT/OT. Follow up outpatient for prosthetic. Assessment & Plan (08/15/2021 1:43 PM NIGHT CLEANER): Continue PT/OT Continue outpatient follow up for prosthetic on 08/21/21 (2pm), 08/28/21 (11am), and 09/06/21 (11am). Assessment & Plan (08/08/2021 12:35 PM NIGHT CLEANER): Seen outpatient for prosthetic yesterday and has follow up again 08/21/21 (2pm), 08/28/21 (11am), and 09/06/21 (11am) Assessment & Plan (08/07/2021 10:29 AM NIGHT CLEANER): Denies phanthom limb pain. Pain controlled cyclobenzaprine, Acetaminophen, and Gabapentin. Assessment & Plan (08/01/2021 11:53 AM NIGHT CLEANER): Continue Aspirin and Gabapentin. Pain well controlled. Assessment & Plan (07/07/2021 12:45 PM CDT): Follow-up outpatient for prosthesis (metalsmith) Continue gabapentin, acetaminophen, and physical and occupational therapy as tolerated. Assessment & Plan (06/29/2021 1:45 PM CDT): Patient measured for below-knee grassroots organizer is yesterday and will follow-up for fitting (metalsmith). Incision well-healed. Continue PT/OT. Continue gabapentin and acetaminophen. Assessment & Plan (06/19/2021 1:55 PM CDT): Patient had follow-up with vascular surgeon. Sutures removed and patient recommended for residual limb grassroots organizer. Pain well controlled. Continue PT/OT Assessment & Plan (06/08/2021 3:02 PM CDT): Patient unable to tolerate oxycodone due to increased confusion. Discussed with MD and will discontinue oxycodone and changed to Poyntelle to help with postoperative pain. Assessment & [...] hospital tomorrow Patient was not accepted at [facility] rehab per social sciences instructor Assessment & Plan (06/29/2020 9:55 AM CDT): [...] 05/19/2020 Assessment & Plan (07/14/2021 1:52 PM NIGHT CLEANER): Continue Lasix 40 mg daily Assessment & Plan (09/15/2020 10:36 AM NIGHT CLEANER): - Echo from 05/2020 LVEF 34% otherwise [...] degree HB on tele w/ very prolonged MI interval and resting bradycardia to mid 50-60s [...] degree HB on tele w/ very prolonged MI interval and resting bradycardia to mid 50-60s [...] degree HB on tele w/ very prolonged MI interval and resting bradycardia to mid 50s, [...] degree HB on tele w/ very prolonged MI interval and resting bradycardia to mid 50s, [...] degree HB on tele w/ very prolonged MI interval, consider restarting - on Entresto 49-51 [...] degree HB on tele w/ very prolonged MI interval, consider restarting - on Entresto 49-51 [...] degree HB on tele w/ very prolonged MI interval. Restart if able. - on Entresto [...] degree HB on tele w/ very prolonged MI interval. Restart if able. - on Entresto [...] Plan (05/19/2020 9:20 AM CDT): - BNP 31910 - Restart home carvedilol - Diuresis 2017 [...] (05/18/2020): Added automatically from request for surgery [id number] Assessment & Plan (06/01/2020 10:34 AM CDT): [...] (05/19/2020): Added automatically from request for surgery [id number] Assessment & Plan (02/28/2023 9:46 AM CDT): [...] eye. Assessment & Plan (09/22/2019 3:29 PM NIGHT CLEANER): New cataract evaluation today Mature cataract OS [...] on admission with NSR with severely prolonged MI - as noted above, resuming low dose coreg - telemetry Assessment & Plan (06/29/2020 9:55 AM CDT): History of post-op AF - Not on AC on admission, ECG on admission with NSR with severely prolonged MI - as noted above, resuming low dose coreg - telemetry Assessment & Plan (06/28/2020 10:30 AM CDT): History of post-op AF - Not on AC on admission, ECG on admission with NSR with severely prolonged MI - Holding coreg for now while on dobutamine - telemetry Assessment & Plan (06/27/2020 1:26 PM CDT): History of post-op AF - Not on AC on admission, ECG on admission with NSR with severely prolonged MI - Holding coreg for now while on dobutamine - telemetry Assessment & Plan (06/26/2020 12:02 PM CDT): History of post-op AF - Not on AC on admission, ECG on admission with NSR with severely prolonged MI - Holding coreg for now while on dobutamine - telemetry Assessment & Plan (06/25/2020 2:28 PM CDT): History of post-op AF - Not on AC on admission, ECG on admission with NSR with severely prolonged MI - Holding coreg for now while on dobutamine - telemetry Assessment & Plan (06/24/2020 3:35 PM CDT): History of post-op AF - Not on AC on admission, ECG on admission with NSR with severely prolonged MI - Holding coreg for now while on dobutamine - telemetry Assessment & Plan (06/23/2020 9:22 AM CDT): History of post-op AF - Not on AC on admission, ECG on admission with NSR with severely prolonged MI - Holding coreg for now while on dobutamine - telemetry Assessment & Plan (06/22/2020 12:01 PM CDT): History of post-op AF - Not on AC on admission, ECG on admission with NSR with severely prolonged MI - Holding coreg for now while on dobutamine - telemetry Assessment & Plan (06/21/2020 10:44 AM CDT): History of post-op AF - Not on AC on admission, ECG on admission with NSR with severely prolonged MI - Holding coreg for now while on dobutamine - telemetry Assessment & Plan (06/20/2020 11:49 AM CDT): History of post-op AF - Not on AC on admission, ECG on admission with NSR with severely prolonged MI - Holding coreg for now while on [...] - Pt remains under wound care at [facility]. - Discussed with patient the rational [...] Obesity 01/03/2015 Diabetes mellitus type II, uncontrolled ([facility] ) 08/18/2013 Overview (05/26/2020): May [...] QID Assessment & Plan (09/15/2020 10:36 AM NIGHT CLEANER): - Hgb A1c 8.5% 05/2020, 5.5% 09/2019 [...] as current doses - follow-up with his organizational research consultant at [facility] for long-term therapy decisions. Consider GLP-1 agonist [...] plavix Assessment & Plan (09/14/2020 11:01 AM NIGHT CLEANER): - s/p CABG [address] Sae [...] Isordil Assessment & Plan (09/17/2020 6:52 AM NIGHT CLEANER): - VS Q4 hrs - Continue home Lasix, hydralazine, metoprolol, Isordil Assessment & Plan (06/28/2020 10:41 AM CDT): - Elevated blood pressure - continue hydralazine 100 mg tid, isosorbide 40 mg tid - Coreg held with recent MEDICAL EDUCATOR, likely resume low dose tomorrow Assessment & Plan (06/27/2020 1:27 PM CDT): - Elevated blood pressure - continue hydralazine 100 mg tid, isosorbide 40 mg tid - Coreg held with recent MEDICAL EDUCATOR, likely resume tomorrow Assessment & Plan (06/26/2020 12:05 PM CDT): -Elevated blood pressure - continue hydralazine 100 mg tid, isosorbide 40 mg tid -Coreg held while on MEDICAL EDUCATOR Assessment & Plan (06/25/2020 2:31 PM CDT): -Elevated blood pressure - continue hydralazine 100 mg tid, isosorbide 40 mg tid -Coreg held while on MEDICAL EDUCATOR Assessment & Plan (06/24/2020 3:58 PM CDT): -Elevated blood pressure - continue hydralazine 100 mg tid, isosorbide 40 mg tid -Coreg held while on MEDICAL EDUCATOR Assessment & Plan (06/23/2020 10:00 AM CDT): Elevated blood pressure - continue hydralazine 100 mg tid, isosorbide 40 mg tid Off carvedilol while being on dobutamine Continue to monitor Assessment & Plan (05/31/2020 11:11 AM CDT): On home carvedilol, held due to 1st degree HB with prolonged MI interval, borderline HR (56-60) - Start amlodipine 5mg Assessment & Plan (05/30/2020 1:28 PM CDT): On home carvedilol, held due to 1st degree HB with prolonged MI interval, borderline HR (56-60) - Start amlodipine 5mg Assessment & Plan (05/29/2020 10:58 AM CDT): On home carvedilol, held due to 1st degree HB with prolonged MI interval, borderline HR (56-60) - Start amlodipine 5mg Assessment & Plan (05/26/2020 12:36 PM CDT): On home carvedilol, held due to 1st degree HB with prolonged MI interval, borderline HR (56-60) - Start amlodipine 5mg Assessment & Plan (04/09/2018 2:22 PM CDT): Blood pressure within target Resolved Problems Problem Noted Date Diagnosed Date Resolved Date Diabetic ulcer of right fifth toe 11/14/2020 12/01/2020 Overview (11/17/2020): Added automatically from request for surgery [id number] Foot ulcer 11/14/2020 12/01/2020 Overview (11/22/2020): Added automatically from request for surgery [id number] Ulcer of right foot with bon e involvement without evidence of necrosis 11/14/2020 12/01/2020 Overview (11/22/2020): Added automatically from request for surgery [id number] Wound of left leg 11/14/2020 12/01/2020 Overview (11/25/2020): Added automatically from request for surgery [id number] Immunizations Immunization Administration Dates Next Due Influenza, Quadrivalent, Spl it, Preservative Free, Intramuscular 07/01/2020 Influenza, Unspecified 06/16/2017,06/02/2017 Surgical History Surgery Date Site/Laterality Comments MI AMPUTATION TOE INTERPHALANGEAL JOINT 09/02/2011 - 09/01/2012 [...] Added automatically from req uest for surgery [id number] Foot ulcer (HCC) 11/14/2020 Added automatic ally from request for surgery [id number] Diabetic ulcer of right fift h toe (HCC) 11/14/2020 Added automatically from req uest for surgery [id number] Hypertension Hyperlipidemia Peripheral vascular disease Atrial fibrillation [...] week 03/12/2023 How often do you attend [facility] or mu-ism services? Never 03/12/2023 Do you belong to [...] on file Legal Sex Male 4:17 AM NIGHT CLEANER Gender Identity Not on file Sexual Orientation [...] Completed 04/17/2023 Medical Devices Implanted Type Area Inside Sales Advertising Executive Device Identifier Shelf Expiration Date Model / Serial / Lot [employer] [id number] - [id number] - [id number] Implanted:Qty: 1 on 02/24/2020 by Jeremias May MD at [facility] Advanced Medicine Lens Left: Eye [employer] 09/01/2022 [id number] / [id number] / [employer] [id number] Zilver Ptx 7mm 40mm 125cm Drug Elute Otw Delivery System - [id number] - [id number] Implanted:Qty: 1 on 09/16/2020 by Frandy Colunga MD at [facility] Stent Right: Femoral [employer] 12/02/2021 [id number] / [id number] / [id number] [employer] XMOS [id number] Vascade 6/7fr Bioabsorbable Vascular System Compression Collagen - [id number] Implanted:Qty: 1 on 11/24/2020 by Eliseo Akins MD at [facility] [employer] 08/04/2022 [id number] / [id number] Procedures Procedure Name Priority Date/Time Associated Diagnosis Comments EGFR Routine 04/30/2023 3:09 AM CDT HEMOGLOBIN A1C STAT 02/15/2023 5:16 AM CDT LIPID PANEL STAT 02/15/2023 5:16 AM CDT COLONOSCOPY 11/03/2021 12:44 PM NIGHT CLEANER HEPATITIS C ANTIBODY Routine 09/20/2020 8:35 PM NIGHT CLEANER from Last 3 Months or Most Recently [...] MD LAB BLOOD ORDERABLES Final Result [facility] [address] [facility] Department [place] [address] * Hemoglobin A1c (02/15/2023 5:16 AM CDT) Hgb A1C 5.5 4.0 - 5.6 % [facility] Estimated Average Glucose 111 mg/dL [facility] Comment: The ADA recommends reporting an estimated [...] Final Result [facility] Department of [place] [address] * (ABNORMAL) Lipid panel (02/15/2023 5:16 AM [...] on 2018. Triglycerides 81 <=149 mg/dL [facility] [...] on 2018. LDL, calculated 33 <=129 mg/dL [facility] Comment: Interpretive Data Ages < [...] revised on 2018. Non-HDL Cholesterol 49 mg/dL [facility] Comment: Interpretive Data Ages < [...] last revised on 2018. Chol/HDL ratio 3 [facility] Blood 02/15/2023 5:16 AM CDT 02/15/2023 5:57 AM CDT us Marcella Arias MD LAB BLOOD ORDERABLES Final Result [facility] Department [place] [address] * COLONOSCOPY (11/03/2021 12:44 PM NIGHT CLEANER) Anatomical Region Laterality Modality Other Narrative Procedure Note Brayden Lerma MD - 11/03/2021 12:44 PM CST [facility] Patient Name: Kobi Salter Procedure Date: 11/03/2021 12:44 PM Date of : 1965 Admit Type: Outpatient Age: 56 Gender: Male Note Status: Finalized Attending MD: Brayden Lerma M.D. Procedure Date: 11/03/2021 Procedure: Colonoscopy Indications: Chronic diarrhea Patient Profile: This is a 56 year old male. Diarrhea. Providers: Brayden Lerma M.D., Teresa Ross, PEDIATRIC ALLERGIST (Anesthesia Staff), Gini Izquierdo RN, Jose A Vuong,Product Technology Scientist Referring MD: Jewels Lamas M.D. Medicines: Monitored [...] bowel preparation was evaluated using the BBPS ([place] Bowel Preparation Scale)with scores of: Right Colon [...] * Hepatitis C antibody (09/20/2020 8:35 PM NIGHT CLEANER) Hep C Ab Nonreactive Nonreactive [facility] Comment:Antibodies to HCV no t detected. Does NOT exclude the possibility of recent exposure to HCV. Blood specimen (specimen) 09/20/2020 8:35 PM NIGHT CLEANER 09/20/2020 10:17 PM NIGHT CLEANER Jasson Teague NP LAB MICROBIOLOGY - GENE RAL ORDERABLES Final Result [facility] Department [place] [address] from Last 3 Months or Most Recently Relevant to Health Maintenance Additional Health Concerns Infection Onset Date Last Indicated MDR gram neg/ESBL 04/16/2023 04/16/2023 C. difficile 04/26/2023 04/26/[address] [address] [facility] MEDICARE [facility] Address: [address] [address] [place] [address] [employer] [facility] [place] [address] Advance Directives For more information, please contact: [phone] Documents on File Type Date Recorded Patient Boat Joiner Expl anation ADVANCE DIRECTIVE 09/25/2020 7:52 AM POWER OF HERB DOCTOR-MEDICAL * Full Code (Latest Code Status on [...] 11:56 AM 05/31/2021 12:12 AM Care Teams Turbine Attendant Relationship Specialty Start Date End Date No, Physician PCP - General 02/14/23 Frandy Colunga MD Surgeon Vascular Surgery 02/28/21 Alcon Quintanilla DPM Surgeon Podiatry 02/28/21 Theodore Solis MD [address] [place] [id number] Consulting Physician Internal Medicine 03/16/23 Raul Lynn IV, MD [address] [place] [id number] Consulting Physician General Surgery 04/30/23
--- NOTE | 2025-08-19 16:18 | PC.NURSE ---
1540- Patient soiled with large amount diarrhea green stool-pericare done --patient has skin escoriation to groin folds/scrotum anal area and upper posterior thighs-maricruz bream applied after pericare/cleansing done. New depends applied. Patient assisting with repositioning.
[2025-08-19] MEDS: SILVER NITRATE (*SP) STICK 3 EACH (17:30)
--- NOTE | 2025-08-19 17:41 | PC.NURSE ---
Dr Fitch was at bedside-debridement of coccyx done. Packed with Xeroform gauze/4x4 gauze and Mepilex form dressing applied. Patient tolerated well.
--- NOTE | 2025-08-19 19:21 | PC.NURSE ---
Report to transport team
== END 2025-08-19 19:24 ==
PROVIDERS: Physician Assistant; Emergency Provider Student in an Organized Health Care Education/Training Program; PCP Internal Medicine
DX: L89.154 Pressure ulcer of sacral region, stage 4 (principal); M46.28 Osteomyelitis of vertebra, sacral and sacrococcygeal region; E11.22 Type 2 diabetes mellitus with diabetic chronic kidney disease; N18.6 End stage renal disease; Z99.2 Dependence on renal dialysis; E11.42 Type 2 diabetes mellitus with diabetic polyneuropathy; I25.10 Atherosclerotic heart disease of native coronary artery without angina pectoris; I50.40 Unspecified combined systolic (congestive) and diastolic (congestive) heart failure; J44.9 Chronic obstructive pulmonary disease, unspecified; E78.5 Hyperlipidemia, unspecified; D63.8 Anemia in other chronic diseases classified elsewhere; D50.9 Iron deficiency anemia, unspecified; G47.33 Obstructive sleep apnea (adult) (pediatric); M19.90 Unspecified osteoarthritis, unspecified site; F41.9 Anxiety disorder, unspecified; F32.A Depression, unspecified; Z95.1 Presence of aortocoronary bypass graft; Z95.5 Presence of coronary angioplasty implant and graft; Z86.14 Personal history of Methicillin resistant Staphylococcus aureus infection; Z98.49 Cataract extraction status, unspecified eye; Z96.1 Presence of intraocular lens; Z89.511 Acquired absence of right leg below knee; Z89.512 Acquired absence of left leg below knee; Z87.891 Personal history of nicotine dependence; Z79.82 Long term (current) use of aspirin; Z79.899 Other long term (current) drug therapy
CPT/HCPCS: 36415; 72193; 80053; 85025; 85055; 85610; 85652; 85730; 86140; 99284; Q9967